=== PATIENT | male | born 1960 | race Two or more races ===

== ENCOUNTER 2025-02-27 06:05 | Inpatient (IN) | payer OTHER, MEDICARE, MEDICAID, SELFPAY ==
[2025-02-27] VITALS (68 sets, daily range): BP systolic 56–139; BP diastolic 34–107; PULSE 95–147; RESP 20–31; TEMP 37.2–38; O2SAT 76–98; BMI 79.4
[2025-02-27] MEDS: ROCURONIUM INJ 10 MG/ML VIAL 10 ML 100 MG IVP (06:14)
[2025-02-27] MEDS: ETOMIDATE INJ 2 MG/ML VIAL 10 ML 20 MG IVP ×2 (06:14→07:44)
--- NOTE | 2025-02-27 06:19 | XR_ITS ---
Examination: AP chest single view Technique one AP portable supine chest single view Exam date and time: February 27, 2025 0633 hrs. Comparison 08/07/2014 Indications: Hypoxic respiratory failure postintubation today. Findings: Wpie-eb-qdcexnrh enlargement cardiac contour Prominent vascular congestion Extensive opacity in the lungs more severe diffuse in the right lung Endotracheal tube tip 4.3 cm above nunu Orogastric tube in stomach Impression: Extensive bilateral pneumonia and/or pulmonary edema, the appearance should be clinically correlated Endotracheal tube tip 4.3 cm above nunu. Orogastric tube in the stomach satisfactory position
--- NOTE | 2025-02-27 06:21 | PD.EDAMS ---
Altered Mental Status RME/HPI General Chief Complaint: Altered Mental Status Stated Complaint: AMS Time Seen by Provider: 02/27/25 06:27 Arrival date/time: 02/27/25 06:05 RME / HPI RME / HPI narrative: Dr. Wilson?s Main ED Evaluation: 64 y/o unconscious super morbidly obese male with H/o Type II DM and Hypertension presents to ED BIBA c/o altered mental status and difficulty breathing x this morning. Per EMS, patient was found on the floor, appearing to have slid down from his recliner seat with no noted trauma. Blood sugar en route was 231 mg/dL. EMS reports GCS 14, almost 15. Patient was placed on high-flow O2 with O2 sats below 70%. EMS denies any noted oxygen paraphernalia at home. No modifying factors reported. No other concerns or complaints expressed at this time. Related Data Home Medications ?Medication ?Instructions ?Recorded ?Confirmed amlodipine 10 mg tablet 10 mg PO 1XD 02/27/25 02/27/25 gabapentin 600 mg tablet 600 mg PO 3XD 02/27/25 02/27/25 glipizide 10 mg tablet 10 mg PO 1XD 02/27/25 02/27/25 losartan 25 mg tablet 25 mg PO 1XD 02/27/25 02/27/25 metformin 1,000 mg tablet 1,000 mg PO 2XD 02/27/25 02/27/25 metoprolol succinate 100 mg 100 mg PO 2XD 02/27/25 02/27/25 tablet,extended release 24 hr tramadol 50 mg tablet 50 mg PO 3XD 02/27/25 02/27/25 Allergies Allergy/AdvReac Type Severity Reaction Status Date / Time No Known Allergies Allergy Verified 02/27/25 06:45 Review of Systems Review of Systems ROS Unobtainable: unobtainable due to mental status Past Medical History Past Medical History CARDIAC: Positive Hypertension ENDOCRINE: Positive Diabetes Mellitus Type 2 ED Exam Narrative Physical exam: GENERAL APPEARANCE: AxOx0, Super morbidly obese, Unresponsive on arrival HEENT: NC, AT. MMM. Pinpoint pupils BL, clear conjunctiva, oropharynx clear. NECK: Supple without lymphadenopathy. No stiffness or restricted ROM. HEART: BP still unobtainable LUNGS: Below 70% O2 on arrival, Patient intubated at 0616 w/ bagging O2 sats increased to 90's where patient seemed to wake up a bit, Slow, shallow respirations. No crackles or wheezes are heard ABDOMEN: Soft, nontender, nondistended with good bowel sounds heard. BACK: No midline C/T/L spine pain or deformity, No CVAT, no obvious deformity. EXTREMITIES: Without cyanosis, clubbing or edema. MUSCULOSKELETAL: No trauma noted, no chest tenderness NEUROLOGICAL: AxOx0, Unresponsive on arrival Skin: Blue, cyanotic. Course Quality Measures Current suspected stage: septic shock (LA >4 and/or hypotension) IVF 30 ml/kg given for lactic acid >4 and/or hypotension: yes Sepsis reassessment completed at (date): 02/27/25 Sepsis reassessment completed at (time): 09:30 Possible source: pulmonary Blood cultures ordered: completed in ED Antibiotic ordered: Yes Pertinent labs: 02/27/25 06:26 Lactic Acid 5.5 H* mMol/L (0.4-2.0) Procalcitonin 30.14 H ng/ml (0.0-0.49) sepsis Orders Category Date Time Status Bedside COVID-19 Antigen Test NOW Care 02/27/25 06:20 Active Bedside Influenza A&B Antigen Test NOW Care 02/27/25 06:20 Completed COVID-19 Screening Questionnaire NOW Care 02/27/25 09:23 Active Decision to Admit X1 Care 02/27/25 09:23 Completed EKG (ED ONLY) *Do not use* NOW Care 02/27/25 06:20 Completed Intubation NOW Care 02/27/25 06:[address] head/brain wo con Stat Exams 02/27/25 06:20 Completed EKG (ED Only) Stat Exams 02/27/25 06:20 Ordered XR chest 1V post procedure Stat Exams 02/27/25 06:19 Completed ABG [Arterial Blood Gas] Stat Lab 02/27/25 06:55 Completed Acetaminophen Stat Lab 02/27/25 06:26 Completed Alcohol, Blood Medical Stat Lab 02/27/25 06:26 Completed Blood Culture (Lab) Stat Lab 02/27/25 06:30 Results CBC Stat Lab 02/27/25 06:26 Completed CMP [Comprehensive Metabolic Panel] Stat Lab 02/27/25 06:26 Completed Drug Screen,Urine Stat Lab 02/27/25 06:19 Ordered Lactate (Lactic Acid) Stat Lab 02/27/25 06:26 Completed Partial Thromboplastin Time Stat Lab 02/27/25 06:26 Completed Procalcitonin Stat Lab 02/27/25 06:26 Completed Prothrombin Time with INR Stat Lab 02/27/25 06:26 Completed Salicylate Stat Lab 02/27/25 06:26 Completed Sputum Culture and Gram Stain Stat Lab 02/27/25 16:59 Results Troponin I Stat Lab 02/27/25 06:26 Completed Urinalysis Stat Lab 02/27/25 06:19 Ordered Etomidate Inj [Amidate Inj] Med 02/27/25 06:07 Discontinued 20 mg .ROUTE .STK-MED ONE Etomidate Inj [Amidate Inj] Med 02/27/25 06:12 Discontinued 20 mg IVP X1 ONE Etomidate Inj [Amidate Inj] Med 02/27/25 07:38 Discontinued 20 mg IVP X1 ONE Norepinephrine/D5W 8mg/250ml [Levophed in D5W 8mg/250ml Med 02/27/25 06:58 Active ] 8 mg in 250 ml IV 0.05 mcg/kg/min Rocuronium Inj [Zemuron Inj] Med 02/27/25 06:08 Discontinued 100 mg .ROUTE .STK-MED ONE Rocuronium Inj [Zemuron Inj] Med 02/27/25 07:39 Discontinued 100 mg IV X1 ONE Rocuronium Inj [Zemuron Inj] Med 02/27/25 06:12 Discontinued 100 mg IVP X1 ONE Sodium Chloride 0.9% 1000 ml [Ns] 1,000 ml Med 02/27/25 06:19 Discontinued IV 999 mls/hr Sodium Chloride 0.9% 1000 ml [Ns] 1,000 ml Med 02/27/25 06:21 Discontinued IV 999 mls/hr Sodium Chloride 0.9% 1000 ml [Ns] 1,000 ml Med 02/27/25 07:01 Discontinued IV 999 mls/hr Sodium Chloride 0.9% 1000 ml [Ns] 1,000 ml Med 02/27/25 07:18 Discontinued IV 999 mls/hr cefTRIAXone/D5w 1gm IV premix [Rocephin/D5w 1gm IV Med 02/27/25 07:18 Discontinued premix] 1 gm in 50 ml IV X1 Volume Ventilator Stat RT 02/27/25 06:37 Active Vital Signs Vital signs: Vital Signs Pulse Rate 99 02/27/25 06:41 Blood Pressure 56/34 L 02/27/25 06:41 Pulse Oximetry (%) 95 02/27/25 06:41 Fraction of Inspired Oxygen 100 02/27/25 06:41 Procedures -ED EKG Interpretation #1: Date of EK02/27/25 Time of EK:45 Rate: 110 Interpretation: Interpreted by me EKG Impression: Atrial fibrillation (Borderline RVR, No STEMI) Intubation Time out performed: No (Performed emergently) sedative: Etomidate Mg Given: 20 paralytic: Rocuronium Mg Given: 100 Laryngoscope: Babak (#4) ET Tube Size: 8 ET Tube Uncuffed: No Tube Secured Depth (cm): 24 Tube Secured Location: teeth Tube Placement Confirmation: visualized tube passing through cords, equal breath sounds bilaterally, no breath sounds over epigastrium and confirmation by capnometry Patient Tolerated Procedure: well and no complications Intubation Complications: none Altered Mental Status MDM Narrative MDM Narrative:: Scribe Attestation: Dulce Koch am scribing for and in the presence of Dr. Wilson. Provider Notation: Although this document has been carefully reviewed, there may still be some phonetic and other typographical errors. These errors are purely grammatical due to imperfections in the software program and should not be construed in any way to compromise the substance of the patient's medical care during this visit. Bedside glucose performed showing 220 mg/dL. Patient data External records reviewed:: [facility] previous records (No prior ED records found for review.) and EMS form Clinical information provided by:: EMS Social determinants that could affect healthcare access:: none Patient has the following chronic illnesses:: Type II DM, Hypertension How is presenting disease/condition affected by chronic disease/condition?: exacerbated by Evaluation data The following diagnostics were reviewed and interpreted by me:: lab results, radiology exam(s) and EKG tracing(s) (see interpretation under the procedures tab) Lab and/or radiology exams considered but not ordered:: None Interpretation Summary: RADIOLOGY Patient: DAWIT CRAWFORD [facility]. Record#: [id number] Birthdate: 1960 Age/Sex: 64 / M Location: [facility] Attending Dr: Ordering Physician: Josef Wilson MD Date of Service: 02/27/25 Procedure(s): XR chest 1V post procedure Accession Number(s): [id number] cc: Josef Wilson MD; Torres Mena MD; NO PRIMARY/FAMILY,PHYSICIAN~ Examination: AP chest single view Technique one AP portable supine chest single view Exam date and time: February 27, 2025 0633 hrs. Comparison 08/07/2014 Indications: Hypoxic respiratory failure postintubation today. Findings: Ayyf-ky-fbsrdkia enlargement cardiac contour Prominent vascular congestion Extensive opacity in the lungs more severe diffuse in the right lung Endotracheal tube tip 4.3 cm above nunu Orogastric tube in stomach Impression: Extensive bilateral pneumonia and/or pulmonary edema, the appearance should be clinically correlated Endotracheal tube tip 4.3 cm above nunu. Orogastric tube in the stomach satisfactory position Dictated By: Torres Mena MD Signed By: Electronically signed by Torres Mena MD in [place] 02/27/25 0725 Patient: DAWIT CRAWFORD [facility]. Record#: [id number] Birthdate: 1960 Age/Sex: 64 / M Location: [facility] Attending Dr: Ordering Physician: Josef Wilson MD Date of Service: 02/27/25 Procedure(s): CT head/brain wo con Accession Number(s): [id number] cc: Josef Wilson MD; oTrres Mena MD; NO PRIMARY/FAMILY,PHYSICIAN~ Examination: CT brain head without contrast. 2-D sagittal coronal reconstructions Date and time of exam:February 27, 2025 0728 hours INDICATIONS: Altered mental status today CTDI: vol (mGy):67.7 DLP: (mGycm):1349 Technique: Multiple CT axial sections of the brain have been obtained, 5 mm slice thickness. Contrast has not been administered. 2-D sagittal, coronal reconstructions have been obtained Low dose protocols were performed. One or more of the following dose reduction techniques were used; automated exposure control, adjustment of the mA and/or KV according to patient size, use of iterative reconstruction technique. Findings: No significant ventricular enlargement. Intra-axial or extra-axial hemorrhage density is not seen. No mass effect or midline shift Basal cisterns are not remarkable. Fourth ventricle is midline. Cranial vault intact. Impression: Negative for acute hemorrhage, mass effect or midline shift Advise clinical correlation follow-up accordingly Dictated By: Torres Mena MD Signed By: Electronically signed by Torres Mena MD in [place] 02/27/25 0918 Medications / Prescriptions Medications or Prescriptions considered but not ordered:: None Medication administrations:: Medication Administration History Acetaminophen (Acetaminophen 325 Mg Tablet) 650 mg PO Q4HR PRN PRN Reason: PAIN SCALE 1-3 (mild Stop: 03/29/25 09:23 Acetaminophen (Acetaminophen Supp 650 Mg Supp) 650 mg RI Q4HR PRN PRN Reason: PAIN SCALE 1-3 (mild Stop: 03/29/25 09:23 Al Hydrox/Mg Hydrox/Simethicone (Mg Hyd/Al Hyd/Virgilio (Maalox Reg) Susp 30 Ml Udc) 30 ml PO Q4HR PRN PRN Reason: Heartburn or Upset Stomach Stop: 03/29/25 09:23 Enoxaparin Sodium (Enoxaparin Sod Inj 40 Mg/0.4 Ml Syringe) 40 mg SC Q12HR KOURTNEY Stop: 03/13/25 20:59 Last Admin: 02/28/25 21:03 Dose: 40 mg Documented By: Admin: 02/28/25 08:11 Dose: 40 mg Documented By: Admin: 02/27/25 20:47 Dose: 40 mg Documented By: VINNY Norepinephrine/Dextrose (Levophed In D5w 8mg/250ml) 8 mg in 250 mls @ 21.577 mls/hr IV .[id number] PRN; Protocol PRN Reason: PER PROTOCOL Stop: 03/29/25 06:57 Last Titration: 02/28/25 13:49 Dose: 0 mcg/kg/min, 0 mls/hr Documented By: Titration: 02/28/25 13:00 Dose: 0.01 mcg/kg/min, 4.315 mls/hr Documented By: Titration: 02/28/25 12:29 Dose: 0.01 mcg/kg/min, 4.315 mls/hr Documented By: Titration: 02/28/25 12:00 Dose: 0.03 mcg/kg/min, 12.946 mls/hr Documented By: Titration: 02/28/25 11:00 Dose: 0.03 mcg/kg/min, 12.946 mls/hr Documented By: Admin: 02/28/25 10:58 Dose: 0.03 mcg/kg/min, 12.946 mls/hr Documented By: Titration: 02/28/25 10:05 Dose: Infused Documented By: Titration: 02/28/25 10:00 Dose: 0.03 mcg/kg/min, 12.946 mls/hr Documented By: Titration: 02/28/25 09:00 Dose: 0.03 mcg/kg/min, 12.946 mls/hr Documented By: Titration: 02/28/25 08:00 Dose: 0.03 mcg/kg/min, 12.946 mls/hr Documented By: Titration: 02/28/25 07:59 Dose: 0.03 mcg/kg/min, 12.946 mls/hr Documented By: Titration: 02/28/25 07:30 Dose: 0.05 mcg/kg/min, 21.577 mls/hr Documented By: Titration: 02/28/25 07:00 Dose: 0.07 mcg/kg/min, 30.208 mls/hr Documented By: Titration: 02/28/25 06:00 Dose: 0.09 mcg/kg/min, 38.838 mls/hr Documented By: Titration: 02/28/25 05:00 Dose: 0.09 mcg/kg/min, 38.838 mls/hr Documented By: Titration: 02/28/25 04:00 Dose: 0.09 mcg/kg/min, 38.838 mls/hr Documented By: Titration: 02/28/25 03:00 Dose: 0.09 mcg/kg/min, 38.838 mls/hr Documented By: Titration: 02/28/25 02:00 Dose: 0.09 mcg/kg/min, 38.838 mls/hr Documented By: Admin: 02/28/25 01:15 Dose: 0.09 mcg/kg/min, 38.838 mls/hr Documented By: Titration: 02/28/25 01:15 Dose: Infused Documented By: Titration: 02/28/25 01:00 Dose: 0.11 mcg/kg/min, 47.469 mls/hr Documented By: Titration: 02/28/25 00:00 Dose: 0.11 mcg/kg/min, 47.469 mls/hr Documented By: Titration: 02/27/25 23:00 Dose: 0.11 mcg/kg/min, 47.469 mls/hr Documented By: Titration: 02/27/25 22:00 Dose: 0.11 mcg/kg/min, 47.469 mls/hr Documented By: Titration: 02/27/25 21:00 Dose: 0.11 mcg/kg/min, 47.469 mls/hr Documented By: Titration: 02/27/25 20:00 Dose: 0.11 mcg/kg/min, 47.469 mls/hr Documented By: Admin: 02/27/25 19:59 Dose: 0.11 mcg/kg/min, 47.469 mls/hr Documented By: Titration: 02/27/25 19:59 Dose: Infused Documented By: Titration: 02/27/25 19:00 Dose: 0.11 mcg/kg/min, 47.469 mls/hr Documented By: Titration: 02/27/25 18:40 Dose: 0.11 mcg/kg/min, 47.469 mls/hr Documented By: Titration: 02/27/25 18:15 Dose: 0.09 mcg/kg/min, 38.838 mls/hr Documented By: Titration: 02/27/25 18:00 Dose: 0.07 mcg/kg/min, 30.208 mls/hr Documented By: Titration: 02/27/25 17:50 Dose: 0.07 mcg/kg/min, 30.208 mls/hr Documented By: Titration: 02/27/25 17:00 Dose: 0.05 mcg/kg/min, 21.577 mls/hr Documented By: Titration: 02/27/25 16:23 Dose: 0.05 mcg/kg/min, 21.577 mls/hr Documented By: Titration: 02/27/25 16:05 Dose: 0.07 mcg/kg/min, 30.208 mls/hr Documented By: Titration: 02/27/25 16:00 Dose: 0.05 mcg/kg/min, 21.577 mls/hr Documented By: Titration: 02/27/25 15:22 Dose: 0.05 mcg/kg/min, 21.577 mls/hr Documented By: Titration: 02/27/25 15:01 Dose: 0.07 mcg/kg/min, 30.208 mls/hr Documented By: Titration: 02/27/25 15:00 Dose: 0.09 mcg/kg/min, 38.838 mls/hr Documented By: Titration: 02/27/25 14:00 Dose: 0.09 mcg/kg/min, 38.838 mls/hr Documented By: Admin: 02/27/25 12:30 Dose: 0.09 mcg/kg/min, 38.838 mls/hr Documented By: Titration: 02/27/25 12:30 Dose: Infused Documented By: Titration: 02/27/25 10:40 Dose: 0.09 mcg/kg/min, 38.838 mls/hr Documented By: Titration: 02/27/25 10:30 Dose: 0.09 mcg/kg/min, 38.838 mls/hr Documented By: Titration: 02/27/25 10:00 Dose: 0.09 mcg/kg/min, 38.838 mls/hr Documented By: Titration: 02/27/25 10:00 Dose: 0.09 mcg/kg/min, 38.838 mls/hr Documented By: Titration: 02/27/25 07:30 Dose: 0.11 mcg/kg/min, 47.469 mls/hr Documented By: Titration: 02/27/25 07:25 Dose: 0.11 mcg/kg/min, 47.469 mls/hr Documented By: Titration: 02/27/25 07:20 Dose: 0.09 mcg/kg/min, 38.838 mls/hr Documented By: Titration: 02/27/25 07:15 Dose: 0.07 mcg/kg/min, 30.208 mls/hr Documented By: Admin: 02/27/25 07:10 Dose: 0.05 mcg/kg/min, 21.577 mls/hr Documented By: EF Piperacillin Sod/Tazobactam (Sod 4.5 gm/ Sodium Chloride) 100 mls @ 25 mls/hr IV Q8HR KOURTNEY; Protocol Stop: 03/07/25 13:59 Last Admin: 03/01/25 05:26 Dose: 25 mls/hr Documented By: Infusion: 03/01/25 01:03 Dose: Infused Documented By: Admin: 02/28/25 21:03 Dose: 25 mls/hr Documented By: Infusion: 02/28/25 18:41 Dose: Infused Documented By: Admin: 02/28/25 13:57 Dose: 25 mls/hr Documented By: JOSE Magnesium Hydroxide (Milk Of Magnesia Susp 30 Ml Udc) 30 ml PO QDAY PRN PRN Reason: CONSTIPATION Stop: 03/29/25 09:23 Midodrine (Midodrine 5 Mg Tablet) 10 mg PO Q6HR KOURTNEY Stop: 03/30/25 11:59 Last Admin: 03/01/25 05:25 Dose: 10 mg Documented By: Admin: 03/01/25 00:17 Dose: 10 mg Documented By: Admin: 02/28/25 18:02 Dose: 10 mg Documented By: Admin: 02/28/25 13:02 Dose: 10 mg Documented By: JOSE Nitroglycerin (Nitroglycerin 0.4 Mg Subl Btl #25) 0.4 mg SL Q5MIN PRN PRN Reason: CHEST PAIN Pantoprazole Sodium (Pantoprazole Inj 40 Mg Vial) 40 mg IV QDAY [facility] Stop: 03/29/25 11:14 Last Admin: 02/28/25 08:12 Dose: 40 mg Documented By: Admin: 02/27/25 12:11 Dose: 40 mg Documented By: MICHELL Pharmacy Consult (Vancomycin Pharmacy To Dose 1 Each Each) 1 each IV QDAY PRN PRN Reason: CONSULT Stop: 03/29/25 14:29 Discontinued Medications Bumetanide (Bumetanide Inj 0.25 Mg/Ml Vial 4 Ml) 1 mg IV X1 ONE Stop: 02/27/25 21:42 Last Admin: 02/27/25 22:11 Dose: 1 mg Documented By: VINNY Enoxaparin Sodium (Enoxaparin Sod Inj 40 Mg/0.4 Ml Syringe) 40 mg SC QDAY [facility] Stop: 03/14/25 08:59 Etomidate (Etomidate Inj 2 Mg/Ml Vial 10 Ml) Confirm Administered Dose 20 mg .ROUTE .STK-MED ONE Stop: 02/27/25 06:08 Last Admin: 02/27/25 06:31 Dose: Not Given Documented By: LORI Non-Admin Reason: Override Medication Etomidate (Etomidate Inj 2 Mg/Ml Vial 10 Ml) 20 mg IVP X1 ONE Stop: 02/27/25 06:13 Last Admin: 02/27/25 06:14 Dose: 20 mg Documented By: LORI Etomidate (Etomidate Inj 2 Mg/Ml Vial 10 Ml) 20 mg IVP X1 ONE Stop: 02/27/25 07:39 Last Admin: 02/27/25 07:44 Dose: 20 mg Documented By: MICHELL Famotidine (Famotidine Inj 10 Mg/Ml Vial 2 Ml) 20 mg IVP QDAY [facility] Stop: 03/30/25 08:59 Furosemide (Furosemide Inj 10 Mg/Ml 4ml Vial) 60 mg IVP X1 ONE Stop: 02/27/25 16:13 Last Admin: 02/27/25 17:03 Dose: 60 mg Documented By: JOSE Sodium Chloride (Ns) 1,000 mls @ 999 mls/hr IV .Q1H1M ONE Stop: 02/27/25 07:19 Last Infusion: 02/27/25 09:25 Dose: Infused Documented By: Admin: 02/27/25 06:30 Dose: 999 mls/hr Documented By: EF Sodium Chloride (Ns) 1,000 mls @ 999 mls/hr IV .Q1H1M ONE Stop: 02/27/25 07:21 Last Infusion: 02/27/25 07:23 Dose: Infused Documented By: Admin: 02/27/25 06:31 Dose: 999 mls/hr Documented By: EF Sodium Chloride (Ns) 1,000 mls @ 999 mls/hr IV .Q1H1M ONE Stop: 02/27/25 08:01 Last Infusion: 02/27/25 09:25 Dose: Infused Documented By: Admin: 02/27/25 07:11 Dose: 999 mls/hr Documented By: EF Sodium Chloride (Ns) 1,000 mls @ 999 mls/hr IV .Q1H1M ONE Stop: 02/27/25 08:18 Last Infusion: 02/27/25 09:25 Dose: Infused Documented By: Admin: 02/27/25 08:56 Dose: 999 mls/hr Documented By: VG Ceftriaxone Sodium/Dextrose (Rocephin/D5w 1gm Iv Premix) 1 gm in 50 mls @ 100 mls/hr IV X1 ONE Stop: 02/27/25 07:47 Last Infusion: 02/27/25 09:25 Dose: Infused Documented By: Admin: 02/27/25 08:51 Dose: 100 mls/hr Documented By: VG Acetaminophen (Ofirmev Inj) 1,000 mg in 100 mls @ 250 mls/hr IV X1 ONE Stop: 02/27/25 10:42 Last Infusion: 02/27/25 11:12 Dose: Infused Documented By: Admin: 02/27/25 10:24 Dose: 250 mls/hr Documented By: VG Piperacillin Sod/Tazobactam (Sod 4.5 gm/ Sodium Chloride) 100 mls @ 200 mls/hr IV Q6HR KOURTNEY Stop: 03/06/25 14:22 Last Admin: 02/28/25 05:34 Dose: 200 mls/hr Documented By: Infusion: 02/28/25 00:12 Dose: Infused Documented By: Admin: 02/27/25 23:42 Dose: 200 mls/hr Documented By: Infusion: 02/27/25 15:55 Dose: Infused Documented By: Admin: 02/27/25 15:25 Dose: 200 mls/hr Documented By: JOSE Vancomycin HCl 2,000 mg/ (Sodium Chloride) 500 mls @ 150 mls/hr IV X1 ONE Stop: 02/27/25 18:19 Last Admin: 02/27/25 15:22 Dose: 150 mls/hr Documented By: JOSE Amiodarone HCl/Dextrose (Nexterone Ivpb) 150 mg in 100 mls @ 600 mls/hr IV .Q10M ONE Stop: 02/27/25 19:36 Last Infusion: 02/27/25 19:47 Dose: Infused Documented By: Admin: 02/27/25 19:31 Dose: 600 mls/hr Documented By: VINNY Amiodarone HCl/Dextrose (Nexterone Ivpb) 360 mg in 200 mls @ 33.333 mls/hr IV .Q6H ONE Stop: 02/28/25 01:36 Last Admin: 02/27/25 19:46 Dose: 33.333 mls/hr Documented By: VINNY Amiodarone HCl/Dextrose (Nexterone Ivpb) 360 mg in 200 mls @ 16.667 mls/hr IV .Q12H KOURTNEY Stop: 03/01/25 01:36 Last Admin: 02/28/25 13:56 Dose: 16.667 mls/hr Documented By: Infusion: 02/28/25 13:49 Dose: Infused Documented By: Admin: 02/28/25 01:49 Dose: 16.667 mls/hr Documented By: VINNY Vancomycin HCl (Vancomycin/Water 1250 Mg Ivpb) 250 mls @ 120 mls/hr IV X1 ONE Stop: 02/28/25 12:04 Last Admin: 02/28/25 10:02 Dose: 120 mls/hr Documented By: JOSE Bumetanide 20 mg/ IV (Miscellaneous Supplies) 80 mls @ 4 mls/hr IV .Q20H KOURTNEY Stop: 03/01/25 07:03 Last Admin: 02/28/25 12:11 Dose: 1 mg/hr, 4 mls/hr Documented By: JOSE Rocuronium Comfort (Rocuronium Inj 10 Mg/Ml Vial 10 Ml) Confirm Administered Dose 100 mg .ROUTE .STK-MED ONE Stop: 02/27/25 06:09 Last Admin: 02/27/25 06:31 Dose: Not Given Documented By: EF Non-Admin Reason: Override Medication Rocuronium Comfort (Rocuronium Inj 10 Mg/Ml Vial 10 Ml) 100 mg IVP X1 ONE Stop: 02/27/25 06:13 Last Admin: 02/27/25 06:14 Dose: 100 mg Documented By: EF Co-signed By: GG Rocuronium Comfort (Rocuronium Inj 10 Mg/Ml Vial 10 Ml) 100 mg IV X1 ONE Stop: 02/27/25 07:40 Last Admin: 02/27/25 07:44 Dose: 100 mg Documented By: VG Co-signed By: GM Sodium Chloride (Sodium Chloride Rt 10% 15 Ml Nebu) 5 ml INH X1 ONE Stop: 02/27/25 14:39 See above if any Consultations Consultation(s) initiated? (list below): Yes Consultation #1 (Physician, Specialty, Details): Dr. Maxwell, Admissions Rn, made aware of the patient?s HPI, PMHx, lab and/or radiology results. Dr. Maxwell requesting official head CT report, pending admittance. Time: 09:10 Consultation #2 (Physician, Specialty, Details): Dr. Maxwell accepts the patient for admission to ICU. Time: 09:20 Diagnosis Differential diagnosis altered mental status: altered mental status, hypoglycemia and sepsis Most likely diagnosis given after review of the tests above:: Respiratory failure Morbid obesity KENIA Dehydration Admission Indicated Admission indicated?: indicated Admission Request Was there a request for admission?: Yes Admission Attestation Admission request attestation: Discussed case with [] from Hospitalist service regarding admission. Discussed patients ED course, exam findings, labs, and radiology results. The Hospitalist [agrees,declines] to accept the patient for admission. Disposition Plan Disposition Plan: Admit Critical Care Time Critical Care Time Critical Care Time: Yes Total Critical Care Time (min.): 45 Attestation: The high probability of sudden, clinically significant deterioration in the patient?s condition required the highest level of my preparedness to intervene urgently. The services I provided to this patient were to treat and/or prevent clinically significant deterioration. Services included the following: chart data review, reviewing nursing notes and/or old charts, documentation time, security consultant collaboration regarding findings and treatment options, medication orders and management, direct patient care, vital sign assessments and ordering, interpreting and reviewing diagnostic studies and lab tests. Aggregate critical care time includes only time during which I was engaged in work directly related to the patient?s care, as described above, whether at bedside or elsewhere in the Emergency Department. It did not include time spent performing other reported procedures or the services of residents, students, nurses or physician assistants. Discharge Plan Plan Patient Disposition: Admit Acute Care w/in Hospital Problem List Clinical Impression: Respiratory failure, KENIA (acute kidney injury), Dehydration, Morbid obesity
[2025-02-27] MEDS: SODIUM CHLORIDE 0.9% 1000 ML 1,000 ML 999 ML IV ×4 (06:30→08:56)
[2025-02-27 06:43] LABS: Lactate (Lactic Acid) 5.5 mMol/L (0.4-2.0)
[2025-02-27 06:44] LABS: Basophils # (Auto) 0.1 Thou/mm3 (0.0-0.2); Basophils % (Auto) 0 % (0-2.5); Eosinophils # (Auto) 0.1 Thou/mm3 (0.0-0.5); Eosinophils % (Auto) 1 % (0-10); Hematocrit 49.7 % (41.0-53.0); Hemoglobin 15.3 g/dL (13.5-16.0); Immature Granulocytes % (Auto) 1 % (0-0); Immature Granulocytes Auto 0.08 Thou/mm3 (0.00-0.00); Lymphocytes # (Auto) 1.5 Thou/mm3 (1.0-4.8); Lymphocytes % (Auto) 9 % (10-50); Mean Corpuscular HGB Conc 30.8 g/dl (31.0-37.0); Mean Corpuscular Hemoglobin 28.8 pg (25.0-35.0); Mean Corpuscular Volume 94 fL (80-100); Monocytes # (Auto) 1.3 Thou/mm3 (0.0-0.8); Monocytes % (Auto) 8 % (0-12); Neutrophils # (Auto) 13.5 Thou/mm3 (1.8-7.7); Neutrophils % (Auto) 82 % (37-80); Nucleated Red Blood Cell # 0.02 Thou/mm3 (0.00-0.00); Nucleated Red Blood Cell % 0 /100 WBC (0); Platelet Count 369 Thou/mm3 (140-440); RDW Standard Deviation 47.8 fL (35.1-43.9); Red Blood Count 5.31 Miln/mm3 (4.50-5.90); White Blood Count 16.5 Thou/mm3 (3.8-10.6)
--- NOTE | 2025-02-27 06:49 | PC.NURSE ---
bp 56/42 md aware no new orders
[2025-02-27 06:59] LABS: Base Excess -2 (-3-3); HCO3 26 mEq/L (20-26); Inspired Oxygen, FIO2 100 %; O2 Saturation 98 % (91-98); PCO2 57 mmHg (32.0-48.0); PO2 101 mmHg (83-108); pH, Arterial 7.27 (7.35-7.45)
[2025-02-27 07:00] LABS: Allen Test Not Performed; Puncture Site Left Femoral
--- NOTE | 2025-02-27 07:00 | PC.RT ---
PT CAME IN STAT, BIPAP BROUGHT TO ROOM 3. UPON ARRIVAL, PT IS PALE IN COLOR AND AGONAL BREATHING NOTED. INTUBATION EQUIPMENT READY FOR DR KAUR. SUCCESS INTUBATION 8.0 AND TUBE MOVED TO 26 AT GUM AFTER XRAY.
[2025-02-27 07:02] LABS: INR 1.4 (0.9-1.3); Partial Thromboplastin Time 29.2 Seconds (22.0-36.0); Prothrombin Time 14.8 Seconds (9.0-12.2)
[2025-02-27] MEDS: Norepinephrine/D5W 8mg/250ml 8 MG/250 ML BAG 21.577 MG IV (07:10)
[2025-02-27 07:30] LABS: Acetaminophen 3.1 mcg/mL (10.0-20.0); Alanine Aminotransferase 35 U/L (10-49); Albumin, Serum 4.2 gm/dL (3.4-4.8); Albumin/Globulin Ratio 1.7 (1.2-2.2); Alcohol, Blood Medical < 3.0 mg/dL (0-10.0); Alkaline Phosphatase 81 U/L (46-116); Anion Gap 12 (7-16); Aspartate Amino Transferase 129 U/L (0-34); BUN/Creatinine Ratio 10 Ratio (12-20); Bilirubin,Total 1.3 mg/dL (0.3-1.2); Blood Urea Nitrogen 22 mg/dL (9-23); Calcium 8.7 mg/dL (8.3-10.6); Calcium (Corrected) 8.7 mg/dL (8.5-10.1); Chloride 102 mMol/L (98-107); Creatinine (Component) 2.1 mg/dL (0.6-1.3); Estimated Creatinine Clearance 65.3 mL/min (>60); Globulin 2.5 gm/dL (2.3-3.5); Glucose 230 mg/dL (74-106); Osmolality,Calculated 285 (275-295); Potassium 5.5 mMol/L (3.4-5.1); Procalcitonin 30.14 ng/ml (0.0-0.49); Salicylate < 3.0 mg/dL; Sodium 138 mMol/L (136-145); Total Protein 6.7 gm/dL (5.7-8.2); Troponin I 0.037 ng/mL (0.0-0.045); eGFR 34 See Note
[2025-02-27] MEDS: ROCURONIUM INJ 10 MG/ML VIAL 10 ML 100 MG IV (07:44)
[2025-02-27] MEDS: cefTRIAXone/D5w 1gm IV premix 1 GM/50 ML BAG IV (08:51)
--- NOTE | 2025-02-27 09:27 | ECHO_ITS ---
Transthoracic Echo Report Ht (in): 67 Wt (lb): 507 Exam Location: Echo Lab Status: Emergency Helicopter Engineer: Filippo Mcgee Indications: Procedure Performed: BP: 97 / 74 HR: 137 Technical Quality: Very technically difficult study MEASUREMENTS (Male / Female) Normal Values 2D ECHO LVOT Diameter 2.9 cm Aortic Root Diameter 3.4 cm DOPPLER AV Peak Velocity 178.0 cm/s AV Peak Gradient 12.7 mmHg AV Mean Gradient 7.0 mmHg AV Velocity Time Integral 27.8 cm LVOT Peak Velocity 120.0 cm/s LVOT Peak Gradient 5.8 mmHg LVOT Velocity Time Integral 17.3 cm LVOT Cardiac Index 4521.0 cm?/min?m? AV Area Cont Eq vti 4.1 cm? AV Area Cont Eq pk 4.5 cm? MV Area PHT 3.4 cm? Mitral E Point Velocity 39.8 cm/s Mitral A Point Velocity 70.3 cm/s Mitral E to A Ratio 0.6 LV E' Lateral Velocity 10.2 cm/s Mitral E to LV E' Lateral Ratio 3.9 LV E' Septal Velocity 6.5 cm/s Mitral E to LV E' Septal Ratio 6.1 TR Peak Velocity 316.0 cm/s TR Peak Gradient 39.9 mmHg FINDINGS Left Ventricle Normal left ventricular size and wall thickness. Normal left ventricular diastolic filling pattern for age. The ejection fraction is visually estimated at 25-30 %. The left ventricle is not well visualized. Right Ventricle The right ventricular systolic function is moderately decreased. The estimated right ventricular systolic pressure 55 mmHg. RAP 15. Left Atrium The left atrium is normal by two-dimensional, color flow and Doppler imaging with no structural abnormalities, no thrombus formation present. Right Atrium The right atrium is normal by two-dimensional imaging, color flow and Doppler imaging with no structural abnormalities, no thrombus formation present. Atrial Septum The interatrial septum appears normal with no evidence of a shunt. Aorta The aorta is normal by two-dimensional, color flow and Doppler interrogation. Mitral Valve The mitral valve is not well visualized. Aortic Valve The aortic valve is not well visualized. Tricuspid Valve There is mild tricuspid valve regurgitation. Pulmonic Valve The pulmonic valve is not well visualized. There is no significant pulmonic valve regurgitation. Vessels Dilated inferior vena cava. Pericardium The pericardium is normal by two-dimensional imaging. There is no significant pericardial effusion. CONCLUSIONS Indication: Shock and evaluate LV function. Overall poor quality images secondary to patient's body habitus and also technically limited study. None of the cardiac structures visualized well. Consider LO if clinically indicated. Limited images show possible moderate to severely reduced LV as well as RV function. IVC appears to be dilated and also estimated RVSP also appears to be at least moderately elevated at 55 mmHg. Kobe Barahona (Electronically Signed) Final Date: 02 March 2025 06:10
[2025-02-27 09:33] LABS: Reflex Lactate? Y
[2025-02-27] MEDS: ACETAMINOPHEN IVPB 1,000 MG/100 ML VIAL 250 MG IV (10:24)
[2025-02-27 10:33] LABS: Lactic Acid, 3 HR 3.6 mMol/L (0.4-2.0)
--- NOTE | 2025-02-27 10:36 | PC.NURSE ---
TITRATION DONE AT 1000 BY SHERICE CASTELAN WAS SUPPOSED TO BE FOR 1030. UNABLE TO UNCHART IT AT THIS TIME. THIS RN CHARTED ON CORRECT TIME WELL FOR 103.
[2025-02-27 11:55] LABS: B-Type Natriuretic Peptide 368 pg/mL (0-100)
[2025-02-27] MEDS: PANTOPRAZOLE INJ 40 MG VIAL IV (12:11)
[2025-02-27] MEDS: Norepinephrine/D5W 8mg/250ml 8 MG/250 ML BAG 38.838 MG IV (12:30)
--- NOTE | 2025-02-27 14:06 | PD.RESHP ---
Documentation for date of: 02/27/25 [facility] History of Present Illness Chief complaint: AMS and SOB History of present illness: 64-year-old male with past medical history of DM2, hypertension, and A-fib was admitted to the ICU on 02/27/2025 after coming to the ED with complaints of altered mental status and shortness of breath. Patient was intubated in the ED therefore most of the history was taken from chart review and from the parents who are at bedside. Patient's parents stated that yesterday morning patient could not get up from his chair and then later that evening/night he started getting confused and was not making sense when he was seen. This morning EMS found the patient on the floor and he was saturating in the 70s even on high flow nasal cannula. Given his hypoxia patient was intubated in the ED. As per parents were at bedside they stated that prior to this patient was able to walk around, but that since yesterday morning he was unable to walk. On assessment patient was intubated, but was still able to answer yes or no questions. He was also able to follow commands. Patient spiked a fever while in the ED and he became hypotensive unresponsive to IV fluids therefore he was placed on vasopressors. ED course: Initially patient was hypotensive and febrile. Initial labs were relevant for leukocytosis (16.5), ABG (pH 7.27, PCO2 of 57, and pO2 of 101), hyperkalemia (5.5), KENIA (creatinine 2.1), lactic acidosis (5.5 down trended to 3.6), hyperbilirubinemia (1.3, transaminitis (AST 129), elevated BNP (368), elevated procalcitonin (3.14). Initial imaging included chest x-ray which showed some bilateral opacities which seems like pulmonary edema versus pneumonia and head CT was negative for any acute hemorrhage, mass effect, or midline shift. PMH: As above Social Hx: Denies any smoking, drugs, admits social drinking Medications: Amlodipine, losartan, glipizide, metformin, metoprolol succinate, gabapentin, and tramadol Review of Systems Review of Systems ROS Unobtainable: due to endotracheal tube Past Medical History Past Medical History CARDIAC: Positive Hypertension ENDOCRINE: Positive Diabetes Mellitus Type 2 Past Medical History Comments PMH COMMENT: PMH: DM2, hypertension, and A-fib Social Hx: Denies any smoking, drugs, admits social drinking Medications: Amlodipine, losartan, glipizide, metformin, metoprolol succinate, gabapentin, and tramadol Exam Vital Signs Temp Pulse Resp BP Pulse Ox O2 Del Method O2 Flow Rate 100.4 F 136 H 28 H 107/75 93 L Mechanical Ventilation 70 02/27/25 13:00 02/27/25 13:00 02/27/25 13:00 02/27/25 13:00 02/27/25 13:00 02/27/25 13:00 02/27/25 13:00 FiO2 90 02/27/25 13:00 Narrative Exam General: Mechanically intubated, morbidly obese, able to follow commands Eyes: PERRL, EOMI. Anicteric, vision grossly intact. Ears: No ear pain, no ear discharge, Hearing grossly intact. Nose: No nasal discharge. Mouth/Throat: Moist mucous membranes, no redness, no lesions. Neck: Short neck non-tender, no cervical lymphadenopathy. Lungs: Clear BANG in upper lobes, but decreased in lower lobes likely due to body habitus Cardio: Distant heart sounds likely due to body habitus, normal S1/S2, regular rhythm, no murmurs, no JVD Abdomen: Swollen lower abdomen, no palpable masses, peristalsis present, no guarding or rebound. Extremities: Symmetrical, no significant deformities, 2+ peripheral edema , non-tender, peripheral pulses presents. Skin: No rashes, no lesions, warm to touch. Neuro: Able to follow commands, pupils reactive to light, able to move all extremities Results: Labs 02/28/25 04:45 02/28/25 04:45 Labs: Short CBC 02/27/25 Range/Units 06:26 WBC 16.5 H (3.8-10.6) Thou/mm3 Hgb 15.3 (13.5-16.0) g/dL Hct 49.7 (41.0-53.0) % Plt Count 369 (140-440) Thou/mm3 BMP 02/27/25 06:26 Sodium 138 Potassium 5.5 H Chloride 102 Carbon Dioxide 24.0 BUN 22 Creatinine 2.1 H Glucose 230 H Calcium 8.7 Cardiac Enzymes 02/27/25 Range/Units 06:26 Troponin I 0.037 (0.0-0.045) ng/mL Liver Function 02/27/25 Range/Units 06:26 Total Bilirubin 1.3 H (0.3-1.2) mg/dL AST 129 H (0-34) U/L ALT 35 (10-49) U/L Alkaline Phosphatase 81 (46-116) U/L Albumin 4.2 (3.4-4.8) gm/dL ABG Interpretation ABG results: 02/27/25 06:55 ABG pH 7.27 L ABG pCO2 57 H ABG pO2 101 ABG HCO3 26 ABG O2 Saturation 98 ABG Base Excess -2 Quality Measures Quality Measures sepsis Current suspected stage: septic shock (LA >4 and/or hypotension) Sepsis reassessment completed at (date): 02/27/25 Sepsis reassessment completed at (time): 17:36 Possible source: pulmonary Blood cultures ordered: completed in ED Antibiotic ordered: Yes Advance care planning discussed with:: patient and other (parents) Medications Home Medications and Allergies Home Medications ?Medication ?Instructions ?Recorded ?Confirmed ?Type amlodipine 10 mg tablet 10 mg PO 1XD 02/27/25 02/27/25 History gabapentin 600 mg tablet 600 mg PO 3XD 02/27/25 02/27/25 History glipizide 10 mg tablet 10 mg PO 1XD 02/27/25 02/27/25 History losartan 25 mg tablet 25 mg PO 1XD 02/27/25 02/27/25 History metformin 1,000 mg tablet 1,000 mg PO 2XD 02/27/25 02/27/25 History metoprolol succinate 100 mg 100 mg PO 2XD 02/27/25 02/27/25 History tablet,extended release 24 hr tramadol 50 mg tablet 50 mg PO 3XD 02/27/25 02/27/25 History Allergies Allergy/AdvReac Type Severity Reaction Status Date / Time No Known Allergies Allergy Verified 02/27/25 06:45 Visit Medications Acetaminophen (Acetaminophen 325 Mg Tablet) 650 mg PO Q4HR PRN PRN Reason: PAIN SCALE 1-3 (mild Stop: 03/29/25 09:23 Acetaminophen (Acetaminophen Supp 650 Mg Supp) 650 mg SC Q4HR PRN PRN Reason: PAIN SCALE 1-3 (mild Stop: 03/29/25 09:23 Al Hydrox/Mg Hydrox/Simethicone (Mg Hyd/Al Hyd/Virgilio (Maalox Reg) Susp 30 Ml Udc) 30 ml PO Q4HR PRN PRN Reason: Heartburn or Upset Stomach Stop: 03/29/25 09:23 Enoxaparin Sodium (Enoxaparin Sod Inj 40 Mg/0.4 Ml Syringe) [address] [facility] Stop: 03/13/25 20:59 Famotidine (Famotidine Inj 10 Mg/Ml Vial 2 Ml) [address] [facility] Stop: 03/30/25 08:59 Norepinephrine/Dextrose (Levophed In D5w 8mg/250ml) 8 mg in 250 mls @ 21.577 mls/hr IV .[id number] PRN; Protocol PRN Reason: PER PROTOCOL Stop: 03/29/25 06:57 Last Admin: 02/27/25 12:30 Dose: 0.09 mcg/kg/min, 38.838 mls/hr Magnesium Hydroxide (Milk Of Magnesia Susp 30 Ml Udc) 30 ml PO QDAY PRN PRN Reason: CONSTIPATION Stop: 03/29/25 09:23 Nitroglycerin (Nitroglycerin 0.4 Mg Subl Btl #25) 0.4 mg SL Q5MIN PRN PRN Reason: CHEST PAIN Pantoprazole Sodium (Pantoprazole Inj 40 Mg Vial) [address] [facility] Stop: 03/29/25 11:14 Last Admin: 02/27/25 12:11 Dose: 40 mg Discontinued Medications Enoxaparin Sodium (Enoxaparin Sod Inj 40 Mg/0.4 Ml Syringe) [address] [facility] Stop: 03/14/25 08:59 Etomidate (Etomidate Inj 2 Mg/Ml Vial 10 Ml) 20 mg IVP X1 ONE Stop: 02/27/25 06:13 Last Admin: 02/27/25 06:14 Dose: 20 mg Etomidate (Etomidate Inj 2 Mg/Ml Vial 10 Ml) 20 mg IVP X1 ONE Stop: 02/27/25 07:39 Last Admin: 02/27/25 07:44 Dose: 20 mg Sodium Chloride (Ns) 1,000 mls @ 999 mls/hr IV .Q1H1M ONE Stop: 02/27/25 07:19 Last Infusion: 02/27/25 09:25 Dose: Infused Sodium Chloride (Ns) 1,000 mls @ 999 mls/hr IV .Q1H1M ONE Stop: 02/27/25 07:21 Last Infusion: 02/27/25 07:23 Dose: Infused Sodium Chloride (Ns) 1,000 mls @ 999 mls/hr IV .Q1H1M ONE Stop: 02/27/25 08:01 Last Infusion: 02/27/25 09:25 Dose: Infused Sodium Chloride (Ns) 1,000 mls @ 999 mls/hr IV .Q1H1M ONE Stop: 02/27/25 08:18 Last Infusion: 02/27/25 09:25 Dose: Infused Ceftriaxone Sodium/Dextrose (Rocephin/D5w 1gm Iv Premix) 1 gm in 50 mls @ 100 mls/hr IV X1 ONE Stop: 02/27/25 07:47 Last Infusion: 02/27/25 09:25 Dose: Infused Acetaminophen (Ofirmev Inj) 1,000 mg in 100 mls @ 250 mls/hr IV X1 ONE Stop: 02/27/25 10:42 Last Infusion: 02/27/25 11:12 Dose: Infused Rocuronium Lavinia (Rocuronium Inj 10 Mg/Ml Vial 10 Ml) 100 mg IVP X1 ONE Stop: 02/27/25 06:13 Last Admin: 02/27/25 06:14 Dose: 100 mg Rocuronium Lavinia (Rocuronium Inj 10 Mg/Ml Vial 10 Ml) 100 mg IV X1 ONE Stop: 02/27/25 07:40 Last Admin: 02/27/25 07:44 Dose: 100 mg Assessment & Plan Plan 64-year-old male with past medical history of DM2, hypertension, and A-fib was admitted to the ICU on 02/27/2025 for shock and acute hypoxic respiratory failure. CLAIM AGENT: #Acute encephalopathy Patient was confused as per parents admit signs Patient was able to follow commands and to answer yes and no questions today Head CT negative Could be a component of infectious versus hypoxic CVS: #Shock Unknown etiology at this time Could consider distributive etiology given fevers elevated procalcitonin versus cardiogenic in the setting of history of A-fib which could cause heart failure along with pulmonary edema on chest x-ray and physical exam significant for bilateral lower extremity swelling along with lower abdomen swelling Cheetah did not show patient was fluid responsive at this time Patient's physical exam did show significant swelling from lower abdomen and bilateral lower extremities Patient's chest x-ray does look like patient has pulmonary edema Patient also got 4 L of IV fluids in the ER Echo ordered #CHF? Patient's chest x-ray showed some pulmonary edema Patient's physical exam did not show significant swelling involving his lower abdomen and lower extremities bilaterally Patient's BNP did come slightly elevated at 368 Given patient's history of A-fib could be an inciting factor for developing heart failure Echo ordered Lasix 60 x 1 Daily weights #Hx of A-fib Patient does have a history of A-fib On metoprolol succinate 100 mg daily at home Not on any anticoagulation [id number] score of 3 points indicating 3.2% risk of stroke per year Has bled score of 0 Not rate control at this time Echo ordered Respiratory: #Acute hypoxic respiratory failure #Community-acquired pneumonia Patient was intubated on 02/27/2025 after he was found to be hypoxic Chest x-ray showed some possible pneumonia Patient's hypoxia could also be due to obesity hypoventilation syndrome versus pulmonary edema versus pneumonia Will get daily ABGs and chest x-rays Started Zosyn and vancomycin Cocci ordered Renal: #KENIA #Lactic acidosis Patient came in with creatinine of 2.1 and lactic acid of 5.5 Patient's baseline creatinine is around show 0.9 from 10/2022 Lactic acid did go down to 3.6 Likely in the setting of shock Patient received 4 L of IV fluids Will trend lactic acid Avoid nephrotoxic agent Renally dose medication #Hyperkalemia Patient potassium 5.5 on morning labs Repeated CMP GI: #Transaminitis #Hyperbilirubinemia Patient came in with bilirubin of 1.3 and AST 129 Will continue to monitor on daily CMP's Endo: #Morbid obesity Patient has a BMI of 79.5 Heme: #Leukocytosis Patient came in with WBC of 16.5 Could be related to possible pneumonia Will continue to monitor ID: #Community-acquired pneumonia Blood cultures ordered Cocci ordered Started on vancomycin and Zosyn Hospital Maintenance: Diet: N.p.o. DVT ppx: Lovenox 40 mg to 12 GI ppx: protonix IV lines: PIV Chacon: Pure wick Code status: Full code Dispo: ICU for shock and acute hypoxic respiratory failure. Case disclosed with Attending Dr. Hans Cornejo PGY1 Attending Provider Attestation/Addendum Patient seen and examined with resident. Agree with above. In brief this is 64-year-old gentleman with super morbid obesity who was brought into the ER for altered mentation and hypoxic respiratory failure. Patient was intubated on arrival to the ER and chest x-ray showed bilateral infiltrates. There is a question of pulmonary edema versus pneumonia. He is awake and able to follow commands not requiring any sedation. On physical exam lung and heart sounds are distant, abdomen is obese with edema of the pannus, edema of both lower extremities, pulses palpable. He was started on broad-spectrum antibiotics for the possibility of pneumonia. Cheeta was placed and patient noted to have a very elevated SV 115-120. He was given a dose of lasix with no UOP followed by a dose of bumex. given his body habitus inserting chacon was not possible. Take patient with significant FiO2 requirements and his PEEP was increased. Recruitment maneuvers were performed. He was initially able to go down from 100% FiO2 to 90% FiO2. case d/w ICU team labs, imaging, records reviewed ~75ccmin required for evaluation, exam, review, intervention, discussion and formulation of plan of care for this critically ill patient with acute hypoxic respiratory failure intubated and on mechanical ventilation at high risk for further and ongoing decompensation.
[2025-02-27] MEDS: Vancomycin Inj 2,000 MG in SODIUM CHLORIDE 0.9% 500 ML 500 ML 150 MG IV (15:22)
[2025-02-27] MEDS: PIPER/TAZO INJ 4.5 GM in SODIUM CHLORIDE 0.9% (POP) 100 ML IV ×2 (15:25→23:42)
[2025-02-27] MEDS: FUROSEMIDE INJ 10 MG/ML 4ML VIAL 60 MG IVP (17:03)
[2025-02-27 18:05] LABS: Lactate (Lactic Acid) 5.1 mMol/L (0.4-2.0)
[2025-02-27] MEDS: AMIODARONE 150 MG IVPB 150 MG/100 ML BAG 600 MG IV (19:31)
[2025-02-27] MEDS: AMIODARONE 360 MG IVPB 360 MG/200 ML BAG 33.333 MG IV (19:46)
[2025-02-27] MEDS: Norepinephrine/D5W 8mg/250ml 8 MG/250 ML BAG 47.469 MG IV (19:59)
[2025-02-27 20:10] LABS: Alanine Aminotransferase 78 U/L (10-49); Albumin, Serum 3.5 gm/dL (3.4-4.8); Albumin/Globulin Ratio 1.5 (1.2-2.2); Alkaline Phosphatase 79 U/L (46-116); Anion Gap 8 (7-16); Aspartate Amino Transferase 215 U/L (0-34); BUN/Creatinine Ratio 13 Ratio (12-20); Bilirubin,Total 1.2 mg/dL (0.3-1.2); Blood Urea Nitrogen 29 mg/dL (9-23); Calcium 8.3 mg/dL (8.3-10.6); Calcium (Corrected) 8.7 mg/dL (8.5-10.1); Carbon Dioxide 27.9 mMol/L (20.0-31.0); Chloride 104 mMol/L (98-107); Creatinine (Component) 2.3 mg/dL (0.6-1.3); Estimated Creatinine Clearance 59.7 mL/min (>60); Globulin 2.3 gm/dL (2.3-3.5); Glucose 187 mg/dL (74-106); Osmolality,Calculated 290 (275-295); Potassium 5.2 mMol/L (3.4-5.1); Sodium 140 mMol/L (136-145); Total Protein 5.8 gm/dL (5.7-8.2); eGFR 31 See Note
[2025-02-27] MEDS: ENOXAPARIN SOD INJ 40 MG/0.4 ML SYRINGE SC (20:47)
[2025-02-27 21:02] LABS: Reflex Lactate? Y
[2025-02-27] MEDS: BUMETANIDE INJ 0.25 MG/ML VIAL 4 ML 1 MG IV (22:11)
[2025-02-28] VITALS (127 sets, daily range): BP systolic 78–134; BP diastolic 47–92; PULSE 104–149; RESP 18–40; TEMP 37–38; O2SAT 75–99; BMI 79.4; BMI 85.7
[2025-02-28 00:23] LABS: Lactate (Lactic Acid) 2.8 mMol/L (0.4-2.0)
[2025-02-28 00:30] LABS: Reflex Lactate? Y
[2025-02-28] MEDS: Norepinephrine/D5W 8mg/250ml 8 MG/250 ML BAG 38.838 MG IV (01:15)
[2025-02-28] MEDS: AMIODARONE 360 MG IVPB 360 MG/200 ML BAG 16.667 MG IV ×2 (01:49→13:56)
[2025-02-28 03:18] LABS: Lactate (Lactic Acid) 2.8 mMol/L (0.4-2.0)
[2025-02-28 03:20] LABS: Reflex Lactate? Y
[2025-02-28 05:19] LABS: Lactate (Lactic Acid) 3.1 mMol/L (0.4-2.0)
[2025-02-28 05:24] LABS: Basophils # (Auto) 0.1 Thou/mm3 (0.0-0.2); Basophils % (Auto) 0 % (0-2.5); Eosinophils # (Auto) 0.1 Thou/mm3 (0.0-0.5); Eosinophils % (Auto) 1 % (0-10); Hematocrit 43.3 % (41.0-53.0); Hemoglobin 13.9 g/dL (13.5-16.0); Immature Granulocytes % (Auto) 1 % (0-0); Immature Granulocytes Auto 0.15 Thou/mm3 (0.00-0.00); Lymphocytes # (Auto) 0.7 Thou/mm3 (1.0-4.8); Lymphocytes % (Auto) 5 % (10-50); Mean Corpuscular HGB Conc 32.1 g/dl (31.0-37.0); Mean Corpuscular Hemoglobin 28.7 pg (25.0-35.0); Mean Corpuscular Volume 90 fL (80-100); Monocytes # (Auto) 1.1 Thou/mm3 (0.0-0.8); Monocytes % (Auto) 8 % (0-12); Neutrophils # (Auto) 12.5 Thou/mm3 (1.8-7.7); Neutrophils % (Auto) 86 % (37-80); Nucleated Red Blood Cell # 0.02 Thou/mm3 (0.00-0.00); Nucleated Red Blood Cell % 0 /100 WBC (0); Platelet Count 297 Thou/mm3 (140-440); RDW Standard Deviation 45.2 fL (35.1-43.9); Red Blood Count 4.84 Miln/mm3 (4.50-5.90); White Blood Count 14.6 Thou/mm3 (3.8-10.6)
[2025-02-28 05:29] LABS: Base Excess 2 (-3-3); HCO3 28 mEq/L (20-26); Inspired Oxygen, FIO2 90 %; O2 Saturation 95 % (91-98); PCO2 48 mmHg (32.0-48.0); PO2 78 mmHg (83-108); pH, Arterial 7.37 (7.35-7.45)
[2025-02-28] MEDS: PIPER/TAZO INJ 4.5 GM in SODIUM CHLORIDE 0.9% (POP) 100 ML IV ×3 (05:34→21:03)
[2025-02-28 05:40] LABS: Allen Test Performed/OK; Puncture Site Left Radial
[2025-02-28 05:51] LABS: Alanine Aminotransferase 81 U/L (10-49); Albumin, Serum 3.2 gm/dL (3.4-4.8); Albumin/Globulin Ratio 1.4 (1.2-2.2); Alkaline Phosphatase 86 U/L (46-116); Anion Gap 8 (7-16); Aspartate Amino Transferase 179 U/L (0-34); BUN/Creatinine Ratio 12 Ratio (12-20); Blood Urea Nitrogen 32 mg/dL (9-23); Calcium (Corrected) 8.6 mg/dL (8.5-10.1); Carbon Dioxide 25.8 mMol/L (20.0-31.0); Chloride 104 mMol/L (98-107); Creatinine (Component) 2.7 mg/dL (0.6-1.3); Estimated Creatinine Clearance 50.8 mL/min (>60); Globulin 2.3 gm/dL (2.3-3.5); Glucose 217 mg/dL (74-106); Osmolality,Calculated 289 (275-295); Potassium 5.4 mMol/L (3.4-5.1); Sodium 138 mMol/L (136-145); Total Protein 5.5 gm/dL (5.7-8.2); eGFR 25 See Note
--- NOTE | 2025-02-28 06:00 | XR_ITS ---
Examination: AP chest single view Technique one AP portable semiupright chest single view Exam date and time: February 28, 2025 0544 hrs. Comparison February 27, 2025 Indications: Hypoxic respiratory failure postintubation, extensive bilateral pneumonia of pulmonary edema on earlier chest films. Findings: Mild enlargement cardiac contour Prominent vascular congestion Extensive bilateral pneumonia and/or pulmonary edema Endotracheal tube tip 5.7 cm above nunu The chest to is not centered to assess lower position of the orogastric tube Impression: Extensive bilateral pneumonia and probable pulmonary edema Endotracheal tube tip 5.7 cm above nunu
[2025-02-28 06:16] LABS: Reflex Lactate? Y
[2025-02-28] MEDS: ENOXAPARIN SOD INJ 40 MG/0.4 ML SYRINGE SC ×2 (08:11→21:03)
[2025-02-28] MEDS: PANTOPRAZOLE INJ 40 MG VIAL IV (08:12)
[2025-02-28 08:14] LABS: Reflex Lactate? Y
[2025-02-28] MEDS: VANCOMYCIN/WATER 1250 MG IVPB 250 ML 120 MG IV (10:02)
[2025-02-28] MEDS: Norepinephrine/D5W 8mg/250ml 8 MG/250 ML BAG 12.946 MG IV (10:58)
--- NOTE | 2025-02-28 11:21 | XR_ITS ---
Examination: AP chest single view TECHNIQUE: Portable AP chest single view Exam date and time: February 28, 2025 1132 hours Comparison February 28, 2025 INDICATIONS: Hypoxic respiratory failure this week post intubation FINDINGS: Bilateral perihilar bibasilar pneumonia Endotracheal tube tip 5.4 cm above nunu The orogastric tube is not diagnostically visualized Prominent vascular congestion with mild enlargement cardiac contour IMPRESSION: Significant bilateral pneumonia Mild associated heart failure
--- NOTE | 2025-02-28 11:24 | ESPR_ITS ---
Documentation for date of: 02/28/25 Subjective Subjective Interval history: 64-year-old male with past medical history of DM2, hypertension, and A-fib was admitted to the ICU on 02/27/2025 after coming to the ED with complaints of altered mental status and shortness of breath. Patient was intubated in the ED therefore most of the history was taken from chart review and from the parents who are at bedside. Patient's parents stated that yesterday morning patient could not get up from his chair and then later that evening/night he started getting confused and was not making sense when he was seen. This morning EMS found the patient on the floor and he was saturating in the 70s even on high flow nasal cannula. Given his hypoxia patient was intubated in the ED. As per parents were at bedside they stated that prior to this patient was able to walk around, but that since yesterday morning he was unable to walk. On assessment patient was intubated, but was still able to answer yes or no questions. He was also able to follow commands. Patient spiked a fever while in the ED and he became hypotensive unresponsive to IV fluids therefore he was placed on vasopressors. 02/28/2025: Patient was seen examined at bedside this morning. Overnight patient did spike a fever of 100.4 and he had no measurable urine output. Patient placed on amio drip overnigth. He was also given Bumex 1 mg x 1 overnight to see if he had better urine output, but none was measured. Today's patient's chest x-ray this looks like it is improving and he did have wet pants and some urine in the pure wick catheter. Will start patient on Bumex drip at 1 mg and will monitor patient's daily weights. Patient was on very low-dose of Levophed therefore we will start patient on midodrine 10 mg every 6 hours and wean off Levophed entirely. Patient is nasogastric tube was not visualized had x-ray, but on auscultation air was audible in the stomach when hand was placed through the nasogastric tube. Will discontinue patient's vancomycin and Zosyn if his MRSA is negative and will transition to azithromycin and Rocephin. Exam Vital Signs Temp Pulse Resp BP Pulse Ox O2 Del Method O2 Flow Rate 100.0 F 142 H 28 H 116/61 98 Mechanical Ventilation 70 02/28/25 08:00 02/28/25 11:16 02/28/25 09:25 02/28/25 11:16 02/28/25 11:16 02/28/25 08:00 02/27/25 13:00 FiO2 75 02/28/25 10:31 Narrative Exam General: Mechanically intubated, morbidly obese, able to follow commands, A/Ox3 Eyes: PERRL, EOMI. Anicteric, vision grossly intact. Ears: No ear pain, no ear discharge, Hearing grossly intact. Nose: No nasal discharge. Mouth/Throat: Moist mucous membranes, no redness, no lesions. Neck: Short neck non-tender, no cervical lymphadenopathy. Lungs: Clear BANG in upper lobes, but still decreased in lower lobes likely due to body habitus Cardio: Distant heart sounds likely due to body habitus, normal S1/S2, regular rhythm, no murmurs, no JVD Abdomen: Swollen lower abdomen still present, no palpable masses, peristalsis present, no guarding or rebound. Extremities: Symmetrical, no significant deformities, 2+ peripheral edema , non- tender, peripheral pulses presents. Skin: No rashes, no lesions, warm to touch. Neuro: Able to follow commands, pupils reactive to light, able to move all extremities Objective Labs 02/28/25 04:45 02/28/25 04:45 Labs: Laboratory Results - last 24 hr 02/27/25 02/27/25 02/27/25 10:12 17:43 21:08 WBC RBC Hgb Hct MCV MCH MCHC RDW Std Deviation Plt Count Neut % (Auto) Lymph % (Auto) [place] % (Auto) Eos % (Auto) Baso % (Auto) Neut # (Auto) Lymph # (Auto) [place] # (Auto) Eos # (Auto) Baso # (Auto) Immature Gran # (Auto) Absolute Nucleated RBC Immature Gran % Nucleated RBC % Puncture Site ABG pH ABG pCO2 ABG pO2 ABG HCO3 ABG O2 Saturation ABG Base Excess FiO2 Sodium 140 Potassium 5.2 H Chloride 104 Carbon Dioxide 27.9 Anion Gap 8 BUN 29 H Creatinine 2.3 H Estim Creat Clear Calc 59.7 L eGFR 31 L BUN/Creatinine Ratio 13 Glucose 187 H Calculated Osmolality 290 Lactic Acid 5.1 H* 3.0 H Calcium 8.3 Corrected Calcium 8.7 Total Bilirubin 1.2 AST 215 H ALT 78 H Alkaline Phosphatase 79 B-Natriuretic Peptide 368 H Total Protein 5.8 Albumin 3.5 D Globulin 2.3 Albumin/Globulin Ratio 1.5 Random Vancomycin 02/27/25 02/28/25 02/28/25 23:59 03:05 04:45 WBC 14.6 H RBC 4.84 Hgb 13.9 Hct 43.3 MCV 90 MCH 28.7 MCHC 32.1 RDW Std Deviation 45.2 H Plt Count 297 D Neut % (Auto) 86 H Lymph % (Auto) 5 L [place] % (Auto) 8 Eos % (Auto) 1 Baso % (Auto) 0 Neut # (Auto) 12.5 H Lymph # (Auto) 0.7 L [place] # (Auto) 1.1 H Eos # (Auto) 0.1 Baso # (Auto) 0.1 Immature Gran # (Auto) 0.15 H Absolute Nucleated RBC 0.02 H Immature Gran % 1 H Nucleated RBC % 0 Puncture Site ABG pH ABG pCO2 ABG pO2 ABG HCO3 ABG O2 Saturation ABG Base Excess FiO2 Sodium 138 Potassium 5.4 H Chloride 104 Carbon Dioxide 25.8 Anion Gap 8 BUN 32 H Creatinine 2.7 H Estim Creat Clear Calc 50.8 L eGFR 25 L BUN/Creatinine Ratio 12 Glucose 217 H Calculated Osmolality 289 Lactic Acid 2.8 H 2.8 H 3.1 H Calcium 8.0 L Corrected Calcium 8.6 Total Bilirubin 1.0 AST 179 H ALT 81 H Alkaline Phosphatase 86 B-Natriuretic Peptide Total Protein 5.5 L Albumin 3.2 L Globulin 2.3 Albumin/Globulin Ratio 1.4 Random Vancomycin 11.0 02/28/25 02/28/25 04:57 08:00 WBC RBC Hgb Hct MCV MCH MCHC RDW Std Deviation Plt Count Neut % (Auto) Lymph % (Auto) [place] % (Auto) Eos % (Auto) Baso % (Auto) Neut # (Auto) Lymph # (Auto) [place] # (Auto) Eos # (Auto) Baso # (Auto) Immature Gran # (Auto) Absolute Nucleated RBC Immature Gran % Nucleated RBC % Puncture Site Left Radial ABG pH 7.37 D ABG pCO2 48 ABG pO2 78 L D ABG HCO3 28 H ABG O2 Saturation 95 ABG Base Excess 2 FiO2 90 Sodium Potassium Chloride Carbon Dioxide Anion Gap BUN Creatinine Estim Creat Clear Calc eGFR BUN/Creatinine Ratio Glucose Calculated Osmolality Lactic Acid 2.0 Calcium Corrected Calcium Total Bilirubin AST ALT Alkaline Phosphatase B-Natriuretic Peptide Total Protein Albumin Globulin Albumin/Globulin Ratio Random Vancomycin ABG Interpretation ABG results: 02/27/25 02/28/25 06:55 04:57 ABG pH 7.27 L 7.37 D ABG pCO2 57 H 48 ABG pO2 101 78 L D ABG HCO3 26 28 H ABG O2 Saturation 98 95 ABG Base Excess -2 2 Quality Measures Quality Measures sepsis Current suspected stage: sepsis Possible source: pulmonary Blood cultures ordered: completed in ED Antibiotic ordered: Yes Advance care planning discussed with:: patient Assessment & Plan Assessment Current Active Medications: Generic Name Dose Route Start Last Admin Trade Name Freq PRN Reason Stop Dose Admin Acetaminophen 650 mg 02/27/25 09:24 Acetaminophen 325 Mg Tablet PO 03/29/25 09:23 Q4HR PRN PAIN SCALE 1-3 (mild Acetaminophen 650 mg 02/27/25 09:24 Acetaminophen Supp 650 Mg Supp FL 03/29/25 09:23 Q4HR PRN PAIN SCALE 1-3 (mild Al Hydrox/Mg Hydrox/Simethicone 30 ml 02/27/25 09:24 Mg Hyd/Al Hyd/Virgilio (Maalox Reg) Susp 30 Ml Udc PO 03/29/25 09:23 Q4HR PRN Heartburn or Upset Stomach Enoxaparin Sodium 40 mg 02/27/25 21:00 02/28/25 08:11 Enoxaparin Sod Inj 40 Mg/0.4 Ml Syringe SC 03/13/25 20:59 40 mg Q12HR KOURTNEY Administration Norepinephrine/Dextrose 8 mg in 250 mls @ 21.577 mls/hr 02/27/25 06:58 02/28/25 10:58 Levophed In D5w 8mg/250ml IV 03/29/25 06:57 0.03 mcg/kg/min .[id number] PRN 12.946 mls/hr PER PROTOCOL Administration Protocol 0.05 MCG/KG/MIN Amiodarone HCl/Dextrose 360 mg in 200 mls @ 16.667 mls/hr 02/28/25 01:37 02/28/25 01:49 Nexterone Ivpb IV 03/01/25 01:36 16.667 mls/hr .Q12H KOURTNEY Administration Vancomycin HCl 250 mls @ 120 mls/hr 02/28/25 10:00 02/28/25 10:02 Vancomycin/Water 1250 Mg Ivpb IV 02/28/25 12:04 120 mls/hr X1 ONE Administration Piperacillin Sod/Tazobactam 100 mls @ 25 mls/hr 02/28/25 14:00 Sod 4.5 gm/ Sodium Chloride IV 03/07/25 13:59 Q8HR KOURTNEY Protocol Bumetanide 20 mg/ IV 80 mls @ 4 mls/hr 02/28/25 11:04 Miscellaneous Supplies IV 03/01/25 07:03 .Q20H KOURTNEY 1 MG/HR Magnesium Hydroxide 30 ml 02/27/25 09:24 Milk Of Magnesia Susp 30 Ml Udc PO 03/29/25 09:23 QDAY PRN CONSTIPATION Midodrine 10 mg 02/28/25 12:00 Midodrine 5 Mg Tablet PO 03/30/25 11:59 Q6HR KOURTNEY Nitroglycerin 0.4 mg 02/27/25 09:24 Nitroglycerin 0.4 Mg Subl Btl #25 SL Q5MIN PRN CHEST PAIN Pantoprazole Sodium 40 mg 02/27/25 11:15 02/28/25 08:12 Pantoprazole Inj 40 Mg Vial IV 03/29/25 11:14 40 mg QDAY KOURTNEY Administration Pharmacy Consult 1 each 02/27/25 14:30 Vancomycin Pharmacy To Dose 1 Each Each IV 03/29/25 14:29 QDAY PRN CONSULT Plan 64-year-old male with past medical history of DM2, hypertension, and A-fib was admitted to the ICU on 02/27/2025 for shock and acute hypoxic respiratory failure. 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 Patient's chest x-ray today showed improvement Echo pending Bumex drip Daily weights #Hx of A-fib Patient does have a history of A-fib On metoprolol succinate 100 mg daily at home Not on any anticoagulation [id number] score of 3 points indicating 3.2% risk of stroke per year Has bled score of 0 On Amio drip Consider anticoagulation prior to discharge Echo pending Respiratory: #Acute hypoxic respiratory failure #Community-acquired pneumonia Patient was intubated on 02/27/2025 after he was found to be hypoxic Chest x-ray showed some possible pneumonia Patient's hypoxia could also be due to obesity hypoventilation syndrome versus pulmonary edema versus pneumonia Will continue to wean down O2 Will get daily ABGs and chest x-rays Continue Zosyn and vancomycin, will change to azithromycin and Rocephin if MRSA nares come back negative Cocci negative Renal: #KENIA #Lactic acidosis, resolved Patient came in with creatinine of 2.1 and lactic acid of 5.5 Patient's baseline creatinine is around show 0.9 from 10/2022 Bumex drip 1 mg Avoid nephrotoxic agent Renally dose medication #Hyperkalemia Patient potassium 5.4 today Will repeat CMP at 3 PM GI: #Transaminitis #Hyperbilirubinemia Could be due to congestive hepatopathy Patient came in with bilirubin of 1.3 and AST 129 Will continue to monitor on daily CMP's Endo: #Morbid obesity Patient has a BMI of 79.5 Heme: #Leukocytosis WBC downtrending ID: #Community-acquired pneumonia Blood cultures ordered Cocci negative Will continue vancomycin and Zosyn, will switch to azithromycin and Rocephin if MRSA nares negative Hospital Maintenance: Diet: N.p.o. DVT ppx: Lovenox 40 mg q12 hr GI ppx: protonix IV lines: PIV Fuller: Pure wick Code status: Full code Dispo: ICU for shock and acute hypoxic respiratory failure. Case disclosed with Attending Dr. Hans Cornejo PGY1
[2025-02-28] MEDS: BUMETANIDE INJ 20 MG in CONTAINER,EMPTY 50 ML 1 BAG 4 MG IV (12:11)
[2025-02-28 13:00] LABS: Cocci Serology, IgM Negative (Negative)
[2025-02-28] MEDS: MIDODRINE 5 MG TABLET 10 MG PO ×2 (13:02→18:02)
--- NOTE | 2025-02-28 13:08 | PC.NURSE ---
weight obtained per Dr. Dallas with built in bed scale
--- NOTE | 2025-02-28 13:27 | PD.INTPROG ---
Documentation for date of: 02/28/25 Subjective Subjective Interval history: This 64-year-old male admitted yesterday from the ER for acute hypoxic respiratory failure. The patient has super morbid obesity with a BMI of 85. He is felt to have underlying heart failure with question of possible pneumonia. There were no acute overnight events. Unable to insert Fuller to monitor I's and O's. Unclear how much urine he is put out after the diuretic. There has been a slight decrease in his FiO2 requirements overnight from 90 to 75%. He remains with a low-grade temp with a Tmax of 100.4. Critical Care Note Critical care time (min.): 55 Exam Vital Signs Temp Pulse Resp BP Pulse Ox O2 Del Method O2 Flow Rate 100.2 F 132 H 28 H 93/70 92 L Mechanical Ventilation 70 02/28/25 12:01 02/28/25 13:02 02/28/25 09:25 02/28/25 13:02 02/28/25 12:01 02/28/25 12:01 02/27/25 13:00 FiO2 75 02/28/25 12:01 Narrative Exam Gen- NAD, intubated, not on sedation, morbid obesity, awake alert and able to follow commands HEENT-normocephalic, atraumatic, sclera icteric, ET tube in OG tube in place, oral mucosas hydrated, pupils equal reactive Chest-lungs clear to auscultation though severely diminished due to body habitus, heart irregular tach, no bradycardia murmurs auscultated on exam, no increased work of breathing Abdomen-soft, no rebound, no guarding, significant edema of lower pannus, bowel sounds are distant Extremities-edema of bilateral lower extremities, healing, skin changes noted, pulses are palpable, no focal deficits Vent AC VC Drips levo Physical Exam Completion Physical Exam Complete?: Yes Objective - Substance Abuse Technician Labs 02/28/25 04:45 02/28/25 04:45 Labs: Laboratory Results - last 24 hr 02/27/25 02/27/25 02/27/25 17:43 19:09 21:08 WBC RBC Hgb Hct MCV MCH MCHC RDW Std Deviation Plt Count Neut % (Auto) Lymph % (Auto) [place] % (Auto) Eos % (Auto) Baso % (Auto) Neut # (Auto) Lymph # (Auto) [place] # (Auto) Eos # (Auto) Baso # (Auto) Immature Gran # (Auto) Absolute Nucleated RBC Immature Gran % Nucleated RBC % Puncture Site ABG pH ABG pCO2 ABG pO2 ABG HCO3 ABG O2 Saturation ABG Base Excess FiO2 Sodium 140 Potassium 5.2 H Chloride 104 Carbon Dioxide 27.9 Anion Gap 8 BUN 29 H Creatinine 2.3 H Estim Creat Clear Calc 59.7 L eGFR 31 L BUN/Creatinine Ratio 13 Glucose 187 H Calculated Osmolality 290 Lactic Acid 5.1 H* 3.0 H Calcium 8.3 Corrected Calcium 8.7 Total Bilirubin 1.2 AST 215 H ALT 78 H Alkaline Phosphatase 79 Total Protein 5.8 Albumin 3.5 D Globulin 2.3 Albumin/Globulin Ratio 1.5 Random Vancomycin Coccidioides IgM Ab Negative 02/27/25 02/28/25 02/28/25 23:59 03:05 04:45 WBC 14.6 H RBC 4.84 Hgb 13.9 Hct 43.3 MCV 90 MCH 28.7 MCHC 32.1 RDW Std Deviation 45.2 H Plt Count 297 D Neut % (Auto) 86 H Lymph % (Auto) 5 L [place] % (Auto) 8 Eos % (Auto) 1 Baso % (Auto) 0 Neut # (Auto) 12.5 H Lymph # (Auto) 0.7 L [place] # (Auto) 1.1 H Eos # (Auto) 0.1 Baso # (Auto) 0.1 Immature Gran # (Auto) 0.15 H Absolute Nucleated RBC 0.02 H Immature Gran % 1 H Nucleated RBC % 0 Puncture Site ABG pH ABG pCO2 ABG pO2 ABG HCO3 ABG O2 Saturation ABG Base Excess FiO2 Sodium 138 Potassium 5.4 H Chloride 104 Carbon Dioxide 25.8 Anion Gap 8 BUN 32 H Creatinine 2.7 H Estim Creat Clear Calc 50.8 L eGFR 25 L BUN/Creatinine Ratio 12 Glucose 217 H Calculated Osmolality 289 Lactic Acid 2.8 H 2.8 H 3.1 H Calcium 8.0 L Corrected Calcium 8.6 Total Bilirubin 1.0 AST 179 H ALT 81 H Alkaline Phosphatase 86 Total Protein 5.5 L Albumin 3.2 L Globulin 2.3 Albumin/Globulin Ratio 1.4 Random Vancomycin 11.0 Coccidioides IgM Ab 02/28/25 02/28/25 04:57 08:00 WBC RBC Hgb Hct MCV MCH MCHC RDW Std Deviation Plt Count Neut % (Auto) Lymph % (Auto) [place] % (Auto) Eos % (Auto) Baso % (Auto) Neut # (Auto) Lymph # (Auto) [place] # (Auto) Eos # (Auto) Baso # (Auto) Immature Gran # (Auto) Absolute Nucleated RBC Immature Gran % Nucleated RBC % Puncture Site Left Radial ABG pH 7.37 D ABG pCO2 48 ABG pO2 78 L D ABG HCO3 28 H ABG O2 Saturation 95 ABG Base Excess 2 FiO2 90 Sodium Potassium Chloride Carbon Dioxide Anion Gap BUN Creatinine Estim Creat Clear Calc eGFR BUN/Creatinine Ratio Glucose Calculated Osmolality Lactic Acid 2.0 Calcium Corrected Calcium Total Bilirubin AST ALT Alkaline Phosphatase Total Protein Albumin Globulin Albumin/Globulin Ratio Random Vancomycin Coccidioides IgM Ab Assessment & Plan Additional Assessment Additional Assessment: In summary this is a 64yo M 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 Pt appears to be volume overloaded and no signs of bleeding therefore not felt to be hypovolemic. ? distributive 2/2 sepsis - started on midodrine today - on low dose levo - echo pending Resp Acute hypoxic respiratory failure-currently intubated and on mechanical ventilation, follow-up with ABG and chest x-ray. Still requiring significant FiO2 today. Will continue to wean as able Pulmonary edema-will diurese as able Pneumonia-at this point in time it is felt that most the changes on chest x-ray are consistent with pulmonary edema however given his presentation there is possibility for an aspiration event as well. Cultures are pending. He is currently on antibiotics. Renal Hyperkalemia-minimal and anticipate improvement if the patient responds to diuretics Acute kidney injury-avoid nephrotoxins as able, difficulty monitoring urinary output as unable to access the patient's urethra. Will consult urology, will attempt to obtain a renal ultrasound. If the patient continues with minimal urinary output may require dialysis for volume removal GI GI prophylaxis- PPI Transaminitis-starting to trend down from yesterday - Will check a viral panel - May be related to a degree of hypoxia and hypotension versus hepatic congestion Endo Diabetes-sliding scale of insulin and fingersticks Heme Leukocytosis-trending down from yesterday DVT prophylaxis-Lovenox 40 every 12 ID Sepsis- meets criteria for SIRS with location being lungs, on abx, fu on cx Case discussed with ICU team and patient labs, imaging and records reviewed ~55cc min required for eval, exam, review, intervention, discussion formulation of plan of care for his critically ill patient with hypoxic respiratory failure intubated and on mechanical ventilation at high risk of further ongoing decompensation Provider Notation Provider Notation: Although this document has been carefully reviewed, there may still be some phonetic and other typographical errors. These errors are purely grammatical due to imperfections in the software program and should not be construed in any way to compromise the substance of the patient's medical care during this visit. Thank you for the opportunity and privilege in assisting you with this patient's care and management.
--- NOTE | 2025-02-28 13:34 | PC.SS ---
1530: attempted contact with patient's father, Zia Ortega via phone call at [phone], he was unavailable. Voicemail provided.
[2025-02-28 13:35] LABS: Lactate (Lactic Acid) 2.1 mMol/L (0.4-2.0)
[2025-02-28 14:54] LABS: Hepatitis A Antibody IgM Non Reactive (Non React); Hepatitis B Core Antibody IgM Non Reactive (Non React); Hepatitis B Surface Antigen Non Reactive (Non React); Hepatitis C Antibody Non Reactive (Non React)
[2025-02-28 15:46] LABS: Alanine Aminotransferase 90 U/L (10-49); Albumin, Serum 2.9 gm/dL (3.4-4.8); Albumin/Globulin Ratio 1.4 (1.2-2.2); Alkaline Phosphatase 82 U/L (46-116); Anion Gap 8 (7-16); Aspartate Amino Transferase 166 U/L (0-34); BUN/Creatinine Ratio 12 Ratio (12-20); Bilirubin,Total 0.9 mg/dL (0.3-1.2); Blood Urea Nitrogen 36 mg/dL (9-23); Calcium 7.7 mg/dL (8.3-10.6); Calcium (Corrected) 8.6 mg/dL (8.5-10.1); Carbon Dioxide 25.1 mMol/L (20.0-31.0); Chloride 105 mMol/L (98-107); Creatinine (Component) 2.9 mg/dL (0.6-1.3); Estimated Creatinine Clearance 49.8 mL/min (>60); Globulin 2.1 gm/dL (2.3-3.5); Glucose 206 mg/dL (74-106); Osmolality,Calculated 289 (275-295); Potassium 5.3 mMol/L (3.4-5.1); Sodium 138 mMol/L (136-145); eGFR 23 See Note
--- NOTE | 2025-02-28 16:04 | PC.DIETICIAN ---
Nutrition prescription If EN is indicated, consider: Vital 1.2 at 20 ml/hr via OG tube by pump. Advance 10 ml every 8 hrs to goal rate of 60 ml/hr x 24 hrs. If no IV fluids, water flushes of 30 ml/hr (or per MD).
[2025-02-28 16:34] LABS: Reflex Lactate? Y
[2025-02-28 16:58] LABS: Lactic Acid, 3 HR 3.1 mMol/L (0.4-2.0)
[2025-03-01] VITALS (65 sets, daily range): BP systolic 70–139; BP diastolic 49–96; PULSE 90–150; RESP 13–43; TEMP 36.7–37.1; O2SAT 88–98; BMI 85.3
[2025-03-01] MEDS: MIDODRINE 5 MG TABLET 10 MG PO ×3 (00:17→11:00)
[2025-03-01 04:45] LABS: Base Excess 3 (-3-3); HCO3 28 mEq/L (20-26); Inspired Oxygen, FIO2 70 %; O2 Saturation 93 % (91-98); PCO2 44 mmHg (32.0-48.0); PO2 69 mmHg (83-108); pH, Arterial 7.41 (7.35-7.45)
[2025-03-01 04:46] LABS: Allen Test Performed/OK; Puncture Site Right Radial
[2025-03-01] MEDS: PIPER/TAZO INJ 4.5 GM in SODIUM CHLORIDE 0.9% (POP) 100 ML IV (05:26)
--- NOTE | 2025-03-01 06:00 | XR_ITS ---
Examination: AP chest single view Technique one AP portable semiupright chest single view Exam date and time: March 01, 2025 0430 hrs. Comparison February 28, 2025 Indications: Hypoxic respiratory failure, postintubation, pneumonia and heart failure on earlier chest imaging Findings: Heart failure pattern with cardiomegaly prominent vascular congestion and perihilar edema Pneumonia at the lung bases Orogastric tube in the distal portion is not diagnostically visualized The endotracheal tube projects above the nunu No pneumothorax Impression: [id number] heart failure Significant pneumonia both lung bases
[2025-03-01 07:03] LABS: Basophils # (Auto) 0.1 Thou/mm3 (0.0-0.2); Basophils % (Auto) 0 % (0-2.5); Eosinophils % (Auto) 0 % (0-10); Hematocrit 38.8 % (41.0-53.0); Immature Granulocytes % (Auto) 1 % (0-0); Lymphocytes # (Auto) 1.1 Thou/mm3 (1.0-4.8); Lymphocytes % (Auto) 7 % (10-50); Mean Corpuscular HGB Conc 33.5 g/dl (31.0-37.0); Mean Corpuscular Hemoglobin 29.1 pg (25.0-35.0); Mean Corpuscular Volume 87 fL (80-100); Monocytes # (Auto) 1.5 Thou/mm3 (0.0-0.8); Monocytes % (Auto) 10 % (0-12); Neutrophils # (Auto) 12.7 Thou/mm3 (1.8-7.7); Neutrophils % (Auto) 82 % (37-80); Nucleated Red Blood Cell % 0 /100 WBC (0); Platelet Count 232 Thou/mm3 (140-440); Red Blood Count 4.47 Miln/mm3 (4.50-5.90); White Blood Count 15.5 Thou/mm3 (3.8-10.6)
[2025-03-01 07:25] LABS: Alanine Aminotransferase 96 U/L (10-49); Albumin/Globulin Ratio 1.4 (1.2-2.2); Alkaline Phosphatase 98 U/L (46-116); Anion Gap 9 (7-16); Aspartate Amino Transferase 145 U/L (0-34); BUN/Creatinine Ratio 14 Ratio (12-20); Bilirubin,Total 0.8 mg/dL (0.3-1.2); Blood Urea Nitrogen 42 mg/dL (9-23); Calcium 7.8 mg/dL (8.3-10.6); Calcium (Corrected) 8.6 mg/dL (8.5-10.1); Carbon Dioxide 24.2 mMol/L (20.0-31.0); Chloride 105 mMol/L (98-107); Creatinine (Component) 3.1 mg/dL (0.6-1.3); Estimated Creatinine Clearance 46.3 mL/min (>60); Globulin 2.2 gm/dL (2.3-3.5); Glucose 182 mg/dL (74-106); Osmolality,Calculated 291 (275-295); Potassium 5.4 mMol/L (3.4-5.1); Sodium 138 mMol/L (136-145); Total Protein 5.2 gm/dL (5.7-8.2); Vancomycin,Random 13.6 mcg/mL; eGFR 21 See Note
[2025-03-01] MEDS: AMIODARONE HCL 200 MG TABLET PO (08:57)
[2025-03-01] MEDS: PANTOPRAZOLE INJ 40 MG VIAL IV (08:58)
[2025-03-01] MEDS: ENOXAPARIN SOD INJ 40 MG/0.4 ML SYRINGE SC ×2 (08:58→22:24)
[2025-03-01] MEDS: VANCOMYCIN/WATER 1250 MG IVPB 250 ML 120 MG IV (08:58)
[2025-03-01] MEDS: BUMETANIDE INJ 20 MG in CONTAINER,EMPTY 50 ML 1 BAG 8 MG IV (08:59)
[2025-03-01 09:47] LABS: Reflex Lactate? Y
[2025-03-01 10:12] LABS: Lactate (Lactic Acid) 3.1 mMol/L (0.4-2.0)
--- NOTE | 2025-03-01 10:16 | ESPR_ITS ---
Documentation for date of: 03/01/25 Subjective Subjective Interval history: 64-year-old male with past medical history of DM2, hypertension, and A-fib was admitted to the ICU on 02/27/2025 after coming to the ED with complaints of altered mental status and shortness of breath. Patient was intubated in the ED therefore most of the history was taken from chart review and from the parents who are at bedside. Patient's parents stated that yesterday morning patient could not get up from his chair and then later that evening/night he started getting confused and was not making sense when he was seen. This morning EMS found the patient on the floor and he was saturating in the 70s even on high flow nasal cannula. Given his hypoxia patient was intubated in the ED. As per parents were at bedside they stated that prior to this patient was able to walk around, but that since yesterday morning he was unable to walk. On assessment patient was intubated, but was still able to answer yes or no questions. He was also able to follow commands. Patient spiked a fever while in the ED and he became hypotensive unresponsive to IV fluids therefore he was placed on vasopressors. 02/28/2025: Patient was seen examined at bedside this morning. Overnight patient did spike a fever of 100.4 and he had no measurable urine output. Patient placed on amio drip overnigth. He was also given Bumex 1 mg x 1 overnight to see if he had better urine output, but none was measured. Today's patient's chest x-ray this looks like it is improving and he did have wet pants and some urine in the pure wick catheter. Will start patient on Bumex drip at 1 mg and will monitor patient's daily weights. Patient was on very low-dose of Levophed therefore we will start patient on midodrine 10 mg every 6 hours and wean off Levophed entirely. Patient is nasogastric tube was not visualized had x-ray, but on auscultation air was audible in the stomach when hand was placed through the nasogastric tube. Will discontinue patient's vancomycin and Zosyn if his MRSA is negative and will transition to azithromycin and Rocephin. 03/01/2025: Patient seen and examined at bedside this morning. Overnight patient went into A-fib with RVR and he finishes bolus of amiodarone. Patient had a documented urine output of 150, but that she states 1 were very wet. His Bumex drip finished overnight and they were not able to start more Bumex drip as there was not available in the pharmacy overnight. Patient's weight did go down from 249 to 247 kg. Blood cultures have been negative in 48 hours and MRSA nares negative. Will discontinue vancomycin and Zosyn and will start azithromycin and Rocephin. Patient's ventilator requirements have been unchanged, but has been saturating in the 94% therefore we will try and wean down on oxygen requirements. His blood pressure has been stable off Levophed and only on midodrine. His kidney function has been worsening, but expect improvement with more diuresis. Started Amiodarone 200mg qday. Exam Vital Signs Temp Pulse Resp BP Pulse Ox O2 Del Method O2 Flow Rate 98.3 F 110 H 28 H 139/73 H 91 L Mechanical Ventilation 70 03/01/25 04:00 03/01/25 09:00 03/01/25 09:00 03/01/25 09:00 03/01/25 09:00 03/01/25 04:00 02/27/25 13:00 FiO2 50 03/01/25 09:00 Narrative Exam General: Mechanically intubated, morbidly obese, able to follow commands, A/Ox3 Eyes: PERRL, EOMI. Anicteric, vision grossly intact. Ears: No ear pain, no ear discharge, Hearing grossly intact. Nose: No nasal discharge. Mouth/Throat: Moist mucous membranes, no redness, no lesions. Neck: Short neck non-tender, no cervical lymphadenopathy. Lungs: Clear BANG in upper lobes and decreased in Lower lobes. Cardio: Distant heart sounds likely due to body habitus, normal S1/S2, regular rhythm, no murmurs, no JVD Abdomen: Swollen lower abdomen still present mildly improving, no palpable masses, peristalsis present, no guarding or rebound. Extremities: Symmetrical, no significant deformities, 2+ peripheral edema , non- tender, peripheral pulses presents. Skin: No rashes, no lesions, warm to touch. Neuro: Able to follow commands, pupils reactive to light, able to move all extremities, but unable to move L toes today. Objective Labs 03/02/25 04:27 03/02/25 04:27 Labs: Laboratory Results - last 24 hr 02/27/25 02/28/25 02/28/25 19:09 04:35 13:22 WBC RBC Hgb Hct MCV MCH MCHC RDW Std Deviation Plt Count Neut % (Auto) Lymph % (Auto) [place] % (Auto) Eos % (Auto) Baso % (Auto) Neut # (Auto) Lymph # (Auto) [place] # (Auto) Eos # (Auto) Baso # (Auto) Immature Gran # (Auto) Absolute Nucleated RBC Immature Gran % Nucleated RBC % Puncture Site ABG pH ABG pCO2 ABG pO2 ABG HCO3 ABG O2 Saturation ABG Base Excess FiO2 Sodium Potassium Chloride Carbon Dioxide Anion Gap BUN Creatinine Estim Creat Clear Calc eGFR BUN/Creatinine Ratio Glucose Calculated Osmolality Lactic Acid 2.1 H Calcium Corrected Calcium Total Bilirubin AST ALT Alkaline Phosphatase Total Protein Albumin Globulin Albumin/Globulin Ratio Random Vancomycin Coccidioides IgM Ab Negative Hepatitis A IgM Ab Non Reactive Hep Bs Antigen Non Reactive Hep B Core IgM Ab Non Reactive Hepatitis C Antibody Non Reactive 02/28/25 02/28/25 03/01/25 15:00 16:35 04:39 WBC RBC Hgb Hct MCV MCH MCHC RDW Std Deviation Plt Count Neut % (Auto) Lymph % (Auto) [place] % (Auto) Eos % (Auto) Baso % (Auto) Neut # (Auto) Lymph # (Auto) [place] # (Auto) Eos # (Auto) Baso # (Auto) Immature Gran # (Auto) Absolute Nucleated RBC Immature Gran % Nucleated RBC % Puncture Site Right Radial ABG pH 7.41 ABG pCO2 44 ABG pO2 69 L ABG HCO3 28 H ABG O2 Saturation 93 ABG Base Excess 3 FiO2 70 Sodium 138 Potassium 5.3 H Chloride 105 Carbon Dioxide 25.1 Anion Gap 8 BUN 36 H Creatinine 2.9 H Estim Creat Clear Calc 49.8 L eGFR 23 L BUN/Creatinine Ratio 12 Glucose 206 H Calculated Osmolality 289 Lactic Acid 3.1 H Calcium 7.7 L Corrected Calcium 8.6 Total Bilirubin 0.9 AST 166 H ALT 90 H Alkaline Phosphatase 82 Total Protein 5.0 L Albumin 2.9 L Globulin 2.1 L Albumin/Globulin Ratio 1.4 Random Vancomycin Coccidioides IgM Ab Hepatitis A IgM Ab Hep Bs Antigen Hep B Core IgM Ab Hepatitis C Antibody 03/01/25 03/01/25 03/01/25 06:22 06:25 09:40 WBC 15.5 H RBC 4.47 L Hgb 13.0 L Hct 38.8 L MCV 87 MCH 29.1 MCHC 33.5 RDW Std Deviation 44.0 H Plt Count 232 D Neut % (Auto) 82 H Lymph % (Auto) 7 L [place] % (Auto) 10 Eos % (Auto) 0 Baso % (Auto) 0 Neut # (Auto) 12.7 H Lymph # (Auto) 1.1 [place] # (Auto) 1.5 H Eos # (Auto) 0.0 Baso # (Auto) 0.1 Immature Gran # (Auto) 0.10 H Absolute Nucleated RBC 0.00 Immature Gran % 1 H Nucleated RBC % 0 Puncture Site ABG pH ABG pCO2 ABG pO2 ABG HCO3 ABG O2 Saturation ABG Base Excess FiO2 Sodium 138 Potassium 5.4 H Chloride 105 Carbon Dioxide 24.2 Anion Gap 9 BUN 42 H Creatinine 3.1 H Estim Creat Clear Calc 46.3 L eGFR 21 L BUN/Creatinine Ratio 14 Glucose 182 H Calculated Osmolality 291 Lactic Acid 3.0 H 3.1 H Calcium 7.8 L Corrected Calcium 8.6 Total Bilirubin 0.8 AST 145 H ALT 96 H Alkaline Phosphatase 98 Total Protein 5.2 L Albumin 3.0 L Globulin 2.2 L Albumin/Globulin Ratio 1.4 Random Vancomycin 13.6 Coccidioides IgM Ab Hepatitis A IgM Ab Hep Bs Antigen Hep B Core IgM Ab Hepatitis C Antibody ABG Interpretation ABG results: 02/27/25 02/28/25 03/01/25 06:55 04:57 04:39 ABG pH 7.27 L 7.37 D 7.41 ABG pCO2 57 H 48 44 ABG pO2 101 78 L D 69 L ABG HCO3 26 28 H 28 H ABG O2 Saturation 98 95 93 ABG Base Excess -2 2 3 Quality Measures Quality Measures sepsis Current suspected stage: sepsis Possible source: pulmonary Blood cultures ordered: completed in ED Antibiotic ordered: Yes Advance care planning discussed with:: patient and other (parents) Assessment & Plan Assessment Current Active Medications: Generic Name Dose Route Start Last Admin Trade Name Freq PRN Reason Stop Dose Admin Acetaminophen 650 mg 02/27/25 09:24 Acetaminophen 325 Mg Tablet PO 03/29/25 09:23 Q4HR PRN PAIN SCALE 1-3 (mild Acetaminophen 650 mg 02/27/25 09:24 Acetaminophen Supp 650 Mg Supp CO 03/29/25 09:23 Q4HR PRN PAIN SCALE 1-3 (mild Al Hydrox/Mg Hydrox/Simethicone 30 ml 02/27/25 09:24 Mg Hyd/Al Hyd/Virgilio (Maalox Reg) Susp 30 Ml Udc PO 03/29/25 09:23 Q4HR PRN Heartburn or Upset Stomach Amiodarone HCl 200 mg 03/01/25 09:00 03/01/25 08:57 Amiodarone Hcl 200 Mg Tablet PO 03/31/25 08:59 200 mg QDAY KOURTNEY Administration Enoxaparin Sodium 40 mg 02/27/25 21:00 03/01/25 08:58 Enoxaparin Sod Inj 40 Mg/0.4 Ml Syringe SC 03/13/25 20:59 40 mg Q12HR KOURTNEY Administration Norepinephrine/Dextrose 8 mg in 250 mls @ 21.577 mls/hr 02/27/25 06:58 02/28/25 13:49 Levophed In D5w 8mg/250ml IV 03/29/25 06:57 0 mcg/kg/min .[id number] PRN 0 mls/hr PER PROTOCOL Titration Protocol 0.05 MCG/KG/MIN Piperacillin Sod/Tazobactam 100 mls @ 25 mls/hr 02/28/25 14:00 03/01/25 05:26 Sod 4.5 gm/ Sodium Chloride IV 03/07/25 13:59 25 mls/hr Q8HR KOURTNEY Administration Protocol Bumetanide 20 mg/ IV 80 mls @ 8 mls/hr 03/01/25 08:34 03/01/25 08:59 Miscellaneous Supplies IV 03/02/25 04:33 2 mg/hr .Q10H KOURTNEY 8 mls/hr Administration 2 MG/HR Magnesium Hydroxide 30 ml 02/27/25 09:24 Milk Of Magnesia Susp 30 Ml Udc PO 03/29/25 09:23 QDAY PRN CONSTIPATION Midodrine 10 mg 02/28/25 12:00 03/01/25 05:25 Midodrine 5 Mg Tablet PO 03/30/25 11:59 10 mg Q6HR KOURTNEY Administration Nitroglycerin 0.4 mg 02/27/25 09:24 Nitroglycerin 0.4 Mg Subl Btl #25 SL Q5MIN PRN CHEST PAIN Pantoprazole Sodium 40 mg 02/27/25 11:15 03/01/25 08:58 Pantoprazole Inj 40 Mg Vial IV 03/29/25 11:14 40 mg QDAY KOURTNEY Administration Plan 64-year-old male with past medical history of DM2, hypertension, and A-fib was admitted to the ICU on 02/27/2025 for shock and acute hypoxic respiratory failure. 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 Patient's chest x-ray today showed no change net balance -2kg Echo pending read Bumex drip Daily weights #Hx of A-fib Patient does have a history of A-fib On metoprolol succinate 100 mg daily at home Not on any anticoagulation [id number] score of 3 points indicating 3.2% risk of stroke per year Has bled score of 0 Off Amio drip, started PO amiodarone 200 mg qday Consider anticoagulation prior to discharge Echo pending Respiratory: #Acute hypoxic respiratory failure #Community-acquired pneumonia Patient was intubated on 02/27/2025 Will continue to wean down O2 Will get daily ABGs and chest x-rays Discontinue Zosyn and vancomycin, will change to azithromycin and Rocephin Cocci negative Renal: #KENIA #Lactic acidosis Creatinine increasing to 3.1 today Will continue Bumex drip 1 mg Avoid nephrotoxic agent Renally dose medication #Hyperkalemia Patient potassium 5.4 again today Will continue to monitor kayexalate x1 GI: #Transaminitis #Hyperbilirubinemia Could be due to congestive hepatopathy Will continue to monitor on daily CMP's Endo: #Morbid obesity Patient has a BMI of 79.5 Heme: #Leukocytosis Could be reactive vs infecious WBC mildly increased today to 15.5 ID: #Community-acquired pneumonia Blood cultures ordered Cocci negative Discontinue vancomycin and Zosyn, will switch to azithromycin and Rocephin Hospital Maintenance: Diet: N.p.o. DVT ppx: Lovenox 40 mg q12 hr GI ppx: protonix IV lines: PIV [place]: Pure wick Code status: Full code Dispo: ICU for shock and acute hypoxic respiratory failure. Case disclosed with Attending Dr. Hans Cornejo PGY1 Attending Provider Attestation/Addendum pt seen and examined, plan d/w resident team. in brief this is a 64yo M admitted for resp failure and currently intubated. he is felt to have a degree of heart failure and has been on bumex gtt. unable to eval UOP as unable to place chacno or measure urine. he is on no sedation and doing well on the vent. PEEP decreased and FiO2 needs decreasing as well. Has a degree of KENIA which is felt to be related to heart failure as well and will cont with diuresis. minimal elevation in LFTs and ? BANERJEE v congestive hepatopathy. case d/w ICU team labs, imaging, records reviewed ~40ccmin required for eval, exam, review intervention, discussion and formulation of POC for this critically ill pt with acute resp failure on MV at high risk for further and ongoing decompensation.
[2025-03-01] MEDS: cefTRIAXone/D5w 1gm IV premix 1 GM/50 ML BAG IV (10:58)
[2025-03-01] MEDS: AZITHROMYCIN INJ 500 MG in SODIUM CHLORIDE 0.9% 250 ML 250 ML 250 MG IV (10:58)
[2025-03-01] MEDS: SOD POLYSTYRENE SULFON SUSP 15 GM/60 ML BTL 30 GM PO (10:58)
[2025-03-01 12:40] LABS: Lactate (Lactic Acid) 4.9 mMol/L (0.4-2.0)
[2025-03-01 12:42] LABS: Cocci Serology, IgG Negative (Negative)
[2025-03-01 13:10] LABS: Reflex Lactate? Y
[2025-03-01 15:09] LABS: Base Excess 3 (-3-3); HCO3 28 mEq/L (20-26); Inspired Oxygen, FIO2 45 %; O2 Saturation 85 % (91-98); PCO2 45 mmHg (32.0-48.0); pH, Arterial 7.41 (7.35-7.45)
[2025-03-01 15:13] LABS: Allen Test Performed/OK; PO2 53 mmHg (83-108); Puncture Site Right Brachial
[2025-03-01 15:32] LABS: Reflex Lactate? Y
[2025-03-01] MEDS: DEXMEDETOMIDINE 37.02 MCG IV (18:15)
[2025-03-01] MEDS: METOPROLOL TARTRATE INJ 1 MG/ML AMP 5 ML 5 MG IVP (18:41)
--- NOTE | 2025-03-01 19:30 | XR_ITS ---
Examination: AP chest single view Technique one AP portable semiupright chest single view Exam date and time: March 01, 2025 1925 hrs. Comparison March 01, 2025 Indications: Difficulty breathing this week, hypoxic respiratory failure pneumonia heart failure on earlier chest imaging Findings: The film is underpenetrated which does not allow visualization of the orogastric tube Enlarged cardiac contour with prominent vascular congestion, edema and/or pneumonia in the lungs Moderate osteopenia Impression: Recommend abdomen film follow-up to assess orogastric tube position
--- NOTE | 2025-03-01 21:38 | XR_ITS ---
Examination: Abdomen AP single view Technique: AP portable supine abdomen, single view Exam date and time: March 01, 2025 2151 hrs. Indications: Post orogastric tube placement Findings: Orogastric tube in stomach No free air Impression: Advance the orogastric tube 5 cm
[2025-03-02] VITALS (37 sets, daily range): BP systolic 85–145; BP diastolic 58–104; PULSE 89–134; RESP 27–48; TEMP 36.2–37; O2SAT 89–98; BMI 85.3
--- NOTE | 2025-03-02 00:09 | XR_ITS ---
Examination: Abdomen AP single view Technique: AP portable supine abdomen, single view Exam date and time: March 02, 2025 0034 hrs. Indications: Status post orogastric tube placement Findings: Orogastric tube projects in stomach No free air Impression: Orogastric tube projects in stomach
[2025-03-02] MEDS: DEXMEDETOMIDINE 12.34 MCG IV ×2 (00:39→17:55)
[2025-03-02] MEDS: DEXMEDETOMIDINE 24.68 MCG IV ×5 (01:39→22:36)
[2025-03-02] MEDS: BUMETANIDE INJ 20 MG in CONTAINER,EMPTY 50 ML 1 BAG 8 MG IV ×3 (02:26→23:36)
--- NOTE | 2025-03-02 03:56 | PC.RT ---
ETT placement re-verified due to Pt pulling on ETT. ETT resecured with [place] Fast Tube lynn. ETT landmark noted to be 25cm @ Teeth/Gum.
--- NOTE | 2025-03-02 04:09 | XR_ITS ---
Examination: AP chest single view Technique one AP portable upright chest single view Exam date and time: March 02, 2025 0412 hrs. Indications: Hypoxic respiratory failure, shortness of breath this week Findings: Rums-sz-uuikzgiu chronic heart failure Bibasilar pneumonia The film is underpenetrated to assess the orogastric tube Endotracheal tube tip 4.3 cm above nunu Impression: [id number] heart failure pattern Bibasilar pneumonia remains
--- NOTE | 2025-03-02 04:16 | PC.NURSE ---
pt seen attempting to pull out ETT. was pulled less than half way and while attempting to remove patients hands, ETT was pushed back in. restraints and cxr ordered.
[2025-03-02 04:35] LABS: Base Excess 5 (-3-3); HCO3 29 mEq/L (20-26); Inspired Oxygen, FIO2 50 %; O2 Saturation 92 % (91-98); PCO2 42 mmHg (32.0-48.0); PO2 66 mmHg (83-108); pH, Arterial 7.45 (7.35-7.45)
[2025-03-02 04:36] LABS: Allen Test Performed/OK; Puncture Site Right Radial
--- NOTE | 2025-03-02 04:55 | PC.RT ---
ABG RESULTS GIVEN TO DR. OROZCO. NO CHANGES ON VENT AT THIS TIME. RN AWARE.
[2025-03-02 05:46] LABS: Basophils % (Auto) 0 % (0-2.5); Eosinophils % (Auto) 0 % (0-10); Hematocrit 40.1 % (41.0-53.0); Hemoglobin 13.6 g/dL (13.5-16.0); Immature Granulocytes % (Auto) 1 % (0-0); Immature Granulocytes Auto 0.15 Thou/mm3 (0.00-0.00); Lymphocytes # (Auto) 0.6 Thou/mm3 (1.0-4.8); Lymphocytes % (Auto) 5 % (10-50); Mean Corpuscular HGB Conc 33.9 g/dl (31.0-37.0); Mean Corpuscular Hemoglobin 29.1 pg (25.0-35.0); Mean Corpuscular Volume 86 fL (80-100); Monocytes # (Auto) 1.6 Thou/mm3 (0.0-0.8); Monocytes % (Auto) 12 % (0-12); Neutrophils # (Auto) 10.9 Thou/mm3 (1.8-7.7); Neutrophils % (Auto) 82 % (37-80); Nucleated Red Blood Cell % 0 /100 WBC (0); Platelet Count 174 Thou/mm3 (140-440); RDW Standard Deviation 43.2 fL (35.1-43.9); Red Blood Count 4.68 Miln/mm3 (4.50-5.90); White Blood Count 13.3 Thou/mm3 (3.8-10.6)
--- NOTE | 2025-03-02 06:00 | XR_ITS ---
Examination: AP chest single view Technique: AP portable upright chest single view Exam date and time: March 02, 2025 0133 hrs. Comparison March 02, 2025 Indications: Hypoxic respiratory failure. Findings: The film is underpenetrated Moderate enlargement cardiac contour with prominent vascular congestion Bibasilar pneumonia The endotracheal tube projects 4.5 cm above the nunu Impression: [id number] heart failure Significant bibasilar pneumonia
[2025-03-02 06:16] LABS: Alanine Aminotransferase 80 U/L (10-49); Albumin/Globulin Ratio 1.3 (1.2-2.2); Alkaline Phosphatase 107 U/L (46-116); Anion Gap 10 (7-16); Aspartate Amino Transferase 95 U/L (0-34); BUN/Creatinine Ratio 18 Ratio (12-20); Bilirubin,Total 0.8 mg/dL (0.3-1.2); Blood Urea Nitrogen 49 mg/dL (9-23); Calcium (Corrected) 8.8 mg/dL (8.5-10.1); Carbon Dioxide 25.7 mMol/L (20.0-31.0); Chloride 106 mMol/L (98-107); Creatinine (Component) 2.8 mg/dL (0.6-1.3); Globulin 2.3 gm/dL (2.3-3.5); Glucose 192 mg/dL (74-106); Osmolality,Calculated 301 (275-295); Potassium 4.7 mMol/L (3.4-5.1); Sodium 142 mMol/L (136-145); Total Protein 5.3 gm/dL (5.7-8.2); Vancomycin,Random 17.2 mcg/mL; eGFR 24 See Note
[2025-03-02] MEDS: DEXMEDETOMIDINE 37.02 MCG IV (06:59)
[2025-03-02] MEDS: AZITHROMYCIN INJ 500 MG in SODIUM CHLORIDE 0.9% 250 ML 250 ML 250 MG IV (08:47)
[2025-03-02] MEDS: cefTRIAXone/D5w 1gm IV premix 1 GM/50 ML BAG IV (08:48)
[2025-03-02] MEDS: AMIODARONE HCL 200 MG TABLET PO (08:48)
[2025-03-02] MEDS: ENOXAPARIN SOD INJ 40 MG/0.4 ML SYRINGE SC ×2 (08:48→20:41)
[2025-03-02] MEDS: PANTOPRAZOLE INJ 40 MG VIAL IV (08:48)
--- NOTE | 2025-03-02 08:49 | PD.INTPROG ---
Documentation for date of: 03/02/25 Subjective Subjective Interval history: This 64-year-old male admitted yesterday from the ER for acute hypoxic respiratory failure. The patient has super morbid obesity with a BMI of 85. He is felt to have underlying heart failure with question of possible pneumonia. There were no acute overnight events. Unable to insert Fuller to monitor I's and O's. Unclear how much urine he is put out after the diuretic. There has been a slight decrease in his FiO2 requirements overnight from 90 to 75%. He remains with a low-grade temp with a Tmax of 100.4. 03/02- no acute overnight events, yesterday evening was tachy to the 140s 150s and trialled on precedex -> no improvement and given a dose of metoprolol with improvement in HR. pt easily arousable and follows commands Critical Care Note Critical care time (min.): 41 Exam Vital Signs Temp Pulse Resp BP Pulse Ox O2 Del Method O2 Flow Rate 98.3 F 104 H 28 H 116/67 92 L Mechanical Ventilation 70 03/02/25 04:01 03/02/25 06:24 03/01/25 09:00 03/02/25 06:24 03/02/25 06:24 03/01/25 04:00 02/27/25 13:00 FiO2 50 03/02/25 06:24 Narrative Exam Gen- NAD, AAOx3, follows commands, morbidly obese HEENT- NC/AT, mucosa hydrated, sclera anicteric, ETT/OGT in place Chest- LCTAB, HRRR, diminished due to body habitus Abd- s/nt/bs+, edema of pannus Ext- edema b/l LE, pulses palp, no clubbing, no mottling, moves all 4 Vent PSV Drips precedex Physical Exam Completion Physical Exam Complete?: Yes 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 03/03/25 07:22 03/03/25 07:22 Labs: Laboratory Results - last 24 hr 02/27/25 03/01/25 03/01/25 19:09 09:40 12:10 WBC RBC Hgb Hct MCV MCH MCHC RDW Std Deviation Plt Count Neut % (Auto) Lymph % (Auto) [place] % (Auto) Eos % (Auto) Baso % (Auto) Neut # (Auto) Lymph # (Auto) [place] # (Auto) Eos # (Auto) Baso # (Auto) Immature Gran # (Auto) Absolute Nucleated RBC Immature Gran % Nucleated RBC % Puncture Site ABG pH ABG pCO2 ABG pO2 ABG HCO3 ABG O2 Saturation ABG Base Excess Oxygen Liter Flow FiO2 Sodium Potassium Chloride Carbon Dioxide Anion Gap BUN Creatinine Estim Creat Clear Calc eGFR BUN/Creatinine Ratio Glucose Calculated Osmolality Lactic Acid 3.1 H 4.9 H* Calcium Corrected Calcium Total Bilirubin AST ALT Alkaline Phosphatase Total Protein Albumin Globulin Albumin/Globulin Ratio Random Vancomycin Coccidioides IgG Ab Negative 03/01/25 03/01/25 03/02/25 13:15 14:52 04:25 WBC RBC Hgb Hct MCV MCH MCHC RDW Std Deviation Plt Count Neut % (Auto) Lymph % (Auto) [place] % (Auto) Eos % (Auto) Baso % (Auto) Neut # (Auto) Lymph # (Auto) [place] # (Auto) Eos # (Auto) Baso # (Auto) Immature Gran # (Auto) Absolute Nucleated RBC Immature Gran % Nucleated RBC % Puncture Site Cancelled Right Brachial Right Radial ABG pH Cancelled 7.41 7.45 ABG pCO2 Cancelled 45 42 ABG pO2 Cancelled 53 L* 66 L ABG HCO3 Cancelled 28 H 29 H ABG O2 Saturation Cancelled 85 L 92 ABG Base Excess Cancelled 3 5 H Oxygen Liter Flow Cancelled FiO2 Cancelled 45 50 Sodium Potassium Chloride Carbon Dioxide Anion Gap BUN Creatinine Estim Creat Clear Calc eGFR BUN/Creatinine Ratio Glucose Calculated Osmolality Lactic Acid Calcium Corrected Calcium Total Bilirubin AST ALT Alkaline Phosphatase Total Protein Albumin Globulin Albumin/Globulin Ratio Random Vancomycin Coccidioides IgG Ab 03/02/25 04:27 WBC 13.3 H RBC 4.68 Hgb 13.6 Hct 40.1 L MCV 86 MCH 29.1 MCHC 33.9 RDW Std Deviation 43.2 Plt Count 174 D Neut % (Auto) 82 H Lymph % (Auto) 5 L [place] % (Auto) 12 Eos % (Auto) 0 Baso % (Auto) 0 Neut # (Auto) 10.9 H Lymph # (Auto) 0.6 L [place] # (Auto) 1.6 H Eos # (Auto) 0.0 Baso # (Auto) 0.0 Immature Gran # (Auto) 0.15 H Absolute Nucleated RBC 0.00 Immature Gran % 1 H Nucleated RBC % 0 Puncture Site ABG pH ABG pCO2 ABG pO2 ABG HCO3 ABG O2 Saturation ABG Base Excess Oxygen Liter Flow FiO2 Sodium 142 Potassium 4.7 D Chloride 106 Carbon Dioxide 25.7 Anion Gap 10 BUN 49 H Creatinine 2.8 H Estim Creat Clear Calc 51.0 L eGFR 24 L BUN/Creatinine Ratio 18 Glucose 192 H Calculated Osmolality 301 H Lactic Acid Calcium 8.0 L Corrected Calcium 8.8 Total Bilirubin 0.8 AST 95 H ALT 80 H Alkaline Phosphatase 107 Total Protein 5.3 L Albumin 3.0 L Globulin 2.3 Albumin/Globulin Ratio 1.3 Random Vancomycin 17.2 Coccidioides IgG Ab Assessment & Plan Additional Assessment Additional Assessment: In summary this is a 64yo M 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 - transitioned to PSV today 08/23 /45% Pulmonary edema-will diurese as able - hard to eval UOP Pneumonia-at this point in time it is felt that most the changes on chest x-ray are consistent with pulmonary edema however given his presentation there is possibility for an aspiration event as well. Cultures are pending. He is currently on antibiotics. Renal Hyperkalemia-resolved Acute kidney injury-avoid nephrotoxins as able, difficulty monitoring urinary output as unable to access the patient's urethra. - trended up to 3.1 and now down to 2.8 today - suspect due to CHF - cont with bumex gtt GI GI prophylaxis- PPI Transaminitis-starting to trend down from yesterday - acute hep panel is neg - May be related to a degree of hypoxia and hypotension versus hepatic congestion - trending down Endo Diabetes-sliding scale of insulin and fingersticks Heme Leukocytosis-trending down - improving DVT prophylaxis-Lovenox 40 every 12 ID Sepsis- meets criteria for SIRS with location being lungs, on abx, fu on cx Case discussed with ICU team and patient labs, imaging and records reviewed ~41cc min required for eval, exam, review, intervention, discussion formulation of plan of care for his critically ill patient with hypoxic respiratory failure intubated and on mechanical ventilation at high risk of further ongoing decompensation Provider Notation Provider Notation: Although this document has been carefully reviewed, there may still be some phonetic and other typographical errors. These errors are purely grammatical due to imperfections in the software program and should not be construed in any way to compromise the substance of the patient's medical care during this visit. Thank you for the opportunity and privilege in assisting you with this patient's care and management.
[2025-03-02] MEDS: METOPROLOL SUCCINATE XL 25 MG TABCR 50 MG PO ×2 (10:49→20:41)
--- NOTE | 2025-03-02 13:27 | PD.RESPRO ---
Documentation for date of: 03/02/25 Subjective Subjective Interval history: 64-year-old male with past medical history of DM2, hypertension, and A-fib was admitted to the ICU on 02/27/2025 after coming to the ED with complaints of altered mental status and shortness of breath. Patient was intubated in the ED therefore most of the history was taken from chart review and from the parents who are at bedside. Patient's parents stated that yesterday morning patient could not get up from his chair and then later that evening/night he started getting confused and was not making sense when he was seen. This morning EMS found the patient on the floor and he was saturating in the 70s even on high flow nasal cannula. Given his hypoxia patient was intubated in the ED. As per parents were at bedside they stated that prior to this patient was able to walk around, but that since yesterday morning he was unable to walk. On assessment patient was intubated, but was still able to answer yes or no questions. He was also able to follow commands. Patient spiked a fever while in the ED and he became hypotensive unresponsive to IV fluids therefore he was placed on vasopressors. 02/28/2025: Patient was seen examined at bedside this morning. Overnight patient did spike a fever of 100.4 and he had no measurable urine output. Patient placed on amio drip overnigth. He was also given Bumex 1 mg x 1 overnight to see if he had better urine output, but none was measured. Today's patient's chest x-ray this looks like it is improving and he did have wet pants and some urine in the pure wick catheter. Will start patient on Bumex drip at 1 mg and will monitor patient's daily weights. Patient was on very low-dose of Levophed therefore we will start patient on midodrine 10 mg every 6 hours and wean off Levophed entirely. Patient is nasogastric tube was not visualized had x-ray, but on auscultation air was audible in the stomach when hand was placed through the nasogastric tube. Will discontinue patient's vancomycin and Zosyn if his MRSA is negative and will transition to azithromycin and Rocephin. 03/01/2025: Patient seen and examined at bedside this morning. Overnight patient went into A-fib with RVR and he finishes bolus of amiodarone. Patient had a documented urine output of 150, but that she states 1 were very wet. His Bumex drip finished overnight and they were not able to start more Bumex drip as there was not available in the pharmacy overnight. Patient's weight did go down from 249 to 247 kg. Blood cultures have been negative in 48 hours and MRSA nares negative. Will discontinue vancomycin and Zosyn and will start azithromycin and Rocephin. Patient's ventilator requirements have been unchanged, but has been saturating in the 94% therefore we will try and wean down on oxygen requirements. His blood pressure has been stable off Levophed and only on midodrine. His kidney function has been worsening, but expect improvement with more diuresis. Started Amiodarone 200mg qday. 03/02/2025: No overnight events, todays weight 246, we will continue bumex drip. NIF today as -12, we will re-evaluate tomorrow to attempt extubation. Midodrine decreased to 5 q6hr Exam Vital Signs Temp Pulse Resp BP Pulse Ox O2 Del Method O2 Flow Rate 98.3 F 101 H 28 H 107/67 93 L Mechanical Ventilation 70 03/02/25 04:01 03/02/25 10:49 03/01/25 09:00 03/02/25 10:49 03/02/25 10:11 03/01/25 04:00 02/27/25 13:00 FiO2 450 03/02/25 10:11 Objective Labs 03/02/25 04:27 03/02/25 04:27 Labs: Laboratory Results - last 24 hr 03/01/25 03/01/25 03/02/25 13:15 14:52 04:25 WBC RBC Hgb Hct MCV MCH MCHC RDW Std Deviation Plt Count Neut % (Auto) Lymph % (Auto) [place]osh[place] % (Auto) Eos % (Auto) Baso % (Auto) Neut # (Auto) Lymph # (Auto) [place] # (Auto) Eos # (Auto) Baso # (Auto) Immature Gran # (Auto) Absolute Nucleated RBC Immature Gran % Nucleated RBC % Puncture Site Cancelled Right Brachial Right Radial ABG pH Cancelled 7.41 7.45 ABG pCO2 Cancelled 45 42 ABG pO2 Cancelled 53 L* 66 L ABG HCO3 Cancelled 28 H 29 H ABG O2 Saturation Cancelled 85 L 92 ABG Base Excess Cancelled 3 5 H Oxygen Liter Flow Cancelled FiO2 Cancelled 45 50 Sodium Potassium Chloride Carbon Dioxide Anion Gap BUN Creatinine Estim Creat Clear Calc eGFR BUN/Creatinine Ratio Glucose Calculated Osmolality Calcium Corrected Calcium Total Bilirubin AST ALT Alkaline Phosphatase Total Protein Albumin Globulin Albumin/Globulin Ratio Random Vancomycin 03/02/25 04:27 WBC 13.3 H RBC 4.68 Hgb 13.6 Hct 40.1 L MCV 86 MCH 29.1 MCHC 33.9 RDW Std Deviation 43.2 Plt Count 174 D Neut % (Auto) 82 H Lymph % (Auto) 5 L [place] % (Auto) 12 Eos % (Auto) 0 Baso % (Auto) 0 Neut # (Auto) 10.9 H Lymph # (Auto) 0.6 L [place] # (Auto) 1.6 H Eos # (Auto) 0.0 Baso # (Auto) 0.0 Immature Gran # (Auto) 0.15 H Absolute Nucleated RBC 0.00 Immature Gran % 1 H Nucleated RBC % 0 Puncture Site ABG pH ABG pCO2 ABG pO2 ABG HCO3 ABG O2 Saturation ABG Base Excess Oxygen Liter Flow FiO2 Sodium 142 Potassium 4.7 D Chloride 106 Carbon Dioxide 25.7 Anion Gap 10 BUN 49 H Creatinine 2.8 H Estim Creat Clear Calc 51.0 L eGFR 24 L BUN/Creatinine Ratio 18 Glucose 192 H Calculated Osmolality 301 H Calcium 8.0 L Corrected Calcium 8.8 Total Bilirubin 0.8 AST 95 H ALT 80 H Alkaline Phosphatase 107 Total Protein 5.3 L Albumin 3.0 L Globulin 2.3 Albumin/Globulin Ratio 1.3 Random Vancomycin 17.2 ABG Interpretation ABG results: 02/27/25 02/28/25 03/01/25 06:55 04:57 04:39 ABG pH 7.27 L 7.37 D 7.41 ABG pCO2 57 H 48 44 ABG pO2 101 78 L D 69 L ABG HCO3 26 28 H 28 H ABG O2 Saturation 98 95 93 ABG Base Excess -2 2 3 03/01/25 03/01/25 03/02/25 13:15 14:52 04:25 ABG pH Cancelled 7.41 7.45 ABG pCO2 Cancelled 45 42 ABG pO2 Cancelled 53 L* 66 L ABG HCO3 Cancelled 28 H 29 H ABG O2 Saturation Cancelled 85 L 92 ABG Base Excess Cancelled 3 5 H Quality Measures Quality Measures sepsis Current suspected stage: sepsis Possible source: pulmonary Blood cultures ordered: completed in ED Antibiotic ordered: Yes Advance care planning discussed with:: patient Assessment & Plan Assessment Current Active Medications: Generic Name Dose Route Start Last Admin Trade Name Freq PRN Reason Stop Dose Admin Acetaminophen 650 mg 02/27/25 09:24 Acetaminophen 325 Mg Tablet PO 03/29/25 09:23 Q4HR PRN PAIN SCALE 1-3 (mild Acetaminophen 650 mg 02/27/25 09:24 Acetaminophen Supp 650 Mg Supp DC 03/29/25 09:23 Q4HR PRN PAIN SCALE 1-3 (mild Al Hydrox/Mg Hydrox/Simethicone 30 ml 02/27/25 09:24 Mg Hyd/Al Hyd/Virgilio (Maalox Reg) Susp 30 Ml Udc PO 03/29/25 09:23 Q4HR PRN Heartburn or Upset Stomach Amiodarone HCl 200 mg 03/01/25 09:00 03/02/25 08:48 Amiodarone Hcl 200 Mg Tablet PO 03/31/25 08:59 200 mg QDAY KOURTNEY Administration Enoxaparin Sodium 40 mg 02/27/25 21:00 03/02/25 08:48 Enoxaparin Sod Inj 40 Mg/0.4 Ml Syringe SC 03/13/25 20:59 40 mg Q12HR KOURTNEY Administration Norepinephrine/Dextrose 8 mg in 250 mls @ 21.577 mls/hr 02/27/25 06:58 02/28/25 13:49 Levophed In D5w 8mg/250ml IV 03/29/25 06:57 0 mcg/kg/min .[id number] PRN 0 mls/hr PER PROTOCOL Titration Protocol 0.05 MCG/KG/MIN Azithromycin 500 mg/ Sodium 250 mls @ 250 mls/hr 03/01/25 10:19 03/02/25 08:47 Chloride IV 03/03/25 10:18 250 mls/hr QDAY KOURTNEY Administration Ceftriaxone Sodium/Dextrose 1 gm in 50 mls @ 100 mls/hr 03/01/25 10:19 03/02/25 08:48 Rocephin/D5w 1gm Iv Premix IV 03/08/25 10:18 100 mls/hr QDAY KOURTNEY Administration Dexmedetomidine/Sodium Chloride 200 mcg in 50 mls @ 12.34 mls/hr 03/01/25 18:26 03/02/25 09:00 Precedex Ivpb IV 03/31/25 18:25 0 mcg/kg/hr .Q4H4M PRN 0 mls/hr Per PROTOCOL Titration Protocol 0.2 MCG/KG/HR Bumetanide 20 mg/ IV 80 mls @ 8 mls/hr 03/02/25 12:52 Miscellaneous Supplies IV 03/03/25 08:51 .Q10H KOURTNEY 2 MG/HR Magnesium Hydroxide 30 ml 02/27/25 09:24 Milk Of Magnesia Susp 30 Ml Udc PO 03/29/25 09:23 QDAY PRN CONSTIPATION Metoprolol Succinate 50 mg 03/02/25 09:30 03/02/25 10:49 Metoprolol Succinate Xl 25 Mg Tabcr PO 04/01/25 09:29 50 mg BID KOURTNEY Administration Midodrine 10 mg 02/28/25 12:00 03/02/25 05:52 Midodrine 5 Mg Tablet PO 03/30/25 11:59 Not Given Q6HR KOURTNEY Nitroglycerin 0.4 mg 02/27/25 09:24 Nitroglycerin 0.4 Mg Subl Btl #25 SL Q5MIN PRN CHEST PAIN Pantoprazole Sodium 40 mg 02/27/25 11:15 03/02/25 08:48 Pantoprazole Inj 40 Mg Vial IV 03/29/25 11:14 40 mg QDAY KOURTNEY Administration Plan 64-year-old male with past medical history of DM2, hypertension, and A-fib was admitted to the ICU on 02/27/2025 for shock and acute hypoxic respiratory failure. 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: #Shock, resolved Off levophed, on midodrine 10mg q6hr , decreased to 5 net balance -1kg today Patient's chest x-ray today seems unchanged from yesterday Echo pending read Will continue Bumex drip Daily weights #CHF Patient's chest x-ray today showed no change net balance -2kg Echo pending read Bumex drip Daily weights #Hx of A-fib Patient does have a history of A-fib On metoprolol succinate 100 mg daily at home Not on any anticoagulation [id number] score of 3 points indicating 3.2% risk of stroke per year Has bled score of 0 Off Amio drip, started PO amiodarone 200 mg qday Consider anticoagulation prior to discharge Echo pending Respiratory: #Acute hypoxic respiratory failure #Community-acquired pneumonia Patient was intubated on 02/27/2025 Will continue to wean down O2 Will get daily ABGs and chest x-rays Discontinue Zosyn and vancomycin, will change to azithromycin and Rocephin Cocci negative Renal: #KENIA #Lactic acidosis Creatinine increasing to 3.1 today Will continue Bumex drip 1 mg Avoid nephrotoxic agent Renally dose medication #Hyperkalemia Patient potassium 5.4 again today Will continue to monitor kayexalate x1 GI: #Transaminitis #Hyperbilirubinemia Could be due to congestive hepatopathy Will continue to monitor on daily CMP's Endo: #Morbid obesity Patient has a BMI of 79.5 Heme: #Leukocytosis Could be reactive vs infecious WBC mildly increased today to 15.5 ID: #Community-acquired pneumonia Blood cultures ordered Cocci negative Discontinue vancomycin and Zosyn, will switch to azithromycin and Rocephin Hospital Maintenance: Diet: N.p.o. DVT ppx: Lovenox 40 mg q12 hr GI ppx: protonix IV lines: PIV Chacon: Pure wick Code status: Full code Dispo: ICU for shock and acute hypoxic respiratory failure. Case disclosed with Attending Dr. Hans Fragoso MD PGY3 Attending Provider Attestation/Addendum pt seen and examined, plan d/w resident team. in brief this is a 64yo M admitted for resp failure and currently intubated. he is felt to have a degree of heart failure and has been on bumex gtt. unable to eval UOP as unable to place chacon or measure urine. he is on no sedation and doing well on the vent. PEEP decreased and FiO2 needs decreasing as well. Has a degree of KENIA which is felt to be related to heart failure as well and will cont with diuresis. minimal elevation in LFTs and ? BANERJEE v congestive hepatopathy. case d/w ICU team labs, imaging, records reviewed ~40ccmin required for eval, exam, review intervention, discussion and formulation of POC for this critically ill pt with acute resp failure on MV at high risk for further and ongoing decompensation.
[2025-03-02] MEDS: MIDODRINE 5 MG TABLET 10 MG PO (13:43)
[2025-03-02] MEDS: MIDODRINE 5 MG TABLET PO (17:56)
[2025-03-02] MEDS: DEXMEDETOMIDINE 86.38 MCG IV (19:00)
[2025-03-02] MEDS: DEXMEDETOMIDINE 74.04 MCG IV (19:45)
[2025-03-02] MEDS: DEXMEDETOMIDINE 49.36 MCG IV (20:40)
[2025-03-03] VITALS (34 sets, daily range): BP systolic 90–140; BP diastolic 64–104; PULSE 88–143; RESP 23–46; TEMP 36.2–37.2; O2SAT 89–96; BMI 83.8
[2025-03-03] MEDS: DEXMEDETOMIDINE 24.68 MCG IV (00:43)
[2025-03-03 05:10] LABS: Base Excess 5 (-3-3); HCO3 30 mEq/L (20-26); Inspired Oxygen, FIO2 90 %; O2 Saturation 94 % (91-98); PCO2 43 mmHg (32.0-48.0); PO2 72 mmHg (83-108); pH, Arterial 7.45 (7.35-7.45)
[2025-03-03 05:17] LABS: Allen Test Performed/OK; Puncture Site Left Radial
[2025-03-03] MEDS: MIDODRINE 5 MG TABLET PO (05:24)
--- NOTE | 2025-03-03 06:00 | XR_ITS ---
Examination: AP chest single view Technique: AP portable semiupright chest single view Exam date and time: March 03, 2025 0610 hrs. Comparison March 02, 2025 Indications: Respiratory failure, patient has been intubated, heart failure with pneumonia on earlier chest imaging Findings: Mild enlargement cardiac colon. Endotracheal tube tip 4.8 cm above nunu The orogastric tube is poorly visualized, the film is underpenetrated Extensive bilateral pneumonia and/or edema again depicted Impression: No change in extensive bilateral pneumonia, ARDS and/or edema
[2025-03-03 08:03] LABS: Basophils % (Auto) 0 % (0-2.5); Eosinophils % (Auto) 0 % (0-10); Immature Granulocytes % (Auto) 1 % (0-0); Immature Granulocytes Auto 0.11 Thou/mm3 (0.00-0.00); Lymphocytes # (Auto) 0.7 Thou/mm3 (1.0-4.8); Lymphocytes % (Auto) 8 % (10-50); Mean Corpuscular HGB Conc 33.3 g/dl (31.0-37.0); Mean Corpuscular Hemoglobin 28.6 pg (25.0-35.0); Mean Corpuscular Volume 86 fL (80-100); Monocytes # (Auto) 1.4 Thou/mm3 (0.0-0.8); Monocytes % (Auto) 15 % (0-12); Neutrophils # (Auto) 7.1 Thou/mm3 (1.8-7.7); Neutrophils % (Auto) 75 % (37-80); Nucleated Red Blood Cell # 0.02 Thou/mm3 (0.00-0.00); Nucleated Red Blood Cell % 0 /100 WBC (0); Platelet Count 202 Thou/mm3 (140-440); RDW Standard Deviation 42.8 fL (35.1-43.9); Red Blood Count 4.54 Miln/mm3 (4.50-5.90); White Blood Count 9.4 Thou/mm3 (3.8-10.6)
[2025-03-03 08:05] LABS: Alanine Aminotransferase 64 U/L (10-49); Albumin, Serum 3.1 gm/dL (3.4-4.8); Albumin/Globulin Ratio 1.3 (1.2-2.2); Alkaline Phosphatase 108 U/L (46-116); Anion Gap 9 (7-16); Aspartate Amino Transferase 82 U/L (0-34); BUN/Creatinine Ratio 25 Ratio (12-20); Blood Urea Nitrogen 59 mg/dL (9-23); Calcium 8.3 mg/dL (8.3-10.6); Carbon Dioxide 29.1 mMol/L (20.0-31.0); Chloride 107 mMol/L (98-107); Creatinine (Component) 2.4 mg/dL (0.6-1.3); Estimated Creatinine Clearance 58.7 mL/min (>60); Globulin 2.4 gm/dL (2.3-3.5); Glucose 255 mg/dL (74-106); Osmolality,Calculated 314 (275-295); Potassium 3.5 mMol/L (3.4-5.1); Sodium 145 mMol/L (136-145); Total Protein 5.5 gm/dL (5.7-8.2); eGFR 29 See Note
--- NOTE | 2025-03-03 08:50 | PD.INTPROG ---
Documentation for date of: 03/03/25 Subjective Subjective Interval history: This 64-year-old male admitted yesterday from the ER for acute hypoxic respiratory failure. The patient has super morbid obesity with a BMI of 85. He is felt to have underlying heart failure with question of possible pneumonia. There were no acute overnight events. Unable to insert Chacon to monitor I's and O's. Unclear how much urine he is put out after the diuretic. There has been a slight decrease in his FiO2 requirements overnight from 90 to 75%. He remains with a low-grade temp with a Tmax of 100.4. 03/02- no acute overnight events, yesterday evening was tachy to the 140s 150s and trialled on precedex -> no improvement and given a dose of metoprolol with improvement in HR. pt easily arousable and follows commands 03/03- overnight FiO2 was increased to 90%, had had what appears to be good UOP though difficult to measure due to inability to place chacon. has had a weight change from 249kg to 242 kg, afebrile Critical Care Note Critical care time (min.): 44 Exam Vital Signs Temp Pulse Resp BP Pulse Ox O2 Del Method O2 Flow Rate 97.5 F 99 28 H 117/78 96 Mechanical Ventilation 70 03/03/25 04:00 03/03/25 06:15 03/01/25 09:00 03/03/25 06:15 03/03/25 06:15 03/03/25 00:00 02/27/25 13:00 FiO2 90 03/03/25 06:15 Narrative Exam Gen- NAD, follows commands, morbid obesity HEENT- NC/AT, mucosa hydrated, sclera anicteric, ETT/OGT in place Chest- LCTAB, HRRR, no increase in WOB Abd- obese, s/nt/bs+, edema of pannus Ext- edema b/l LE, pulses palp, no mottling, no clubbing Vent PSV 10/10/50% Drips precedex Physical Exam Completion Physical Exam Complete?: Yes 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 03/03/25 07:22 03/03/25 07:22 Labs: Laboratory Results - last 24 hr 03/03/25 03/03/25 04:40 07:22 WBC 9.4 RBC 4.54 Hgb 13.0 L Hct 39.0 L MCV 86 MCH 28.6 MCHC 33.3 RDW Std Deviation 42.8 Plt Count 202 Neut % (Auto) 75 Lymph % (Auto) 8 L [place] % (Auto) 15 H Eos % (Auto) 0 Baso % (Auto) 0 Neut # (Auto) 7.1 Lymph # (Auto) 0.7 L [place] # (Auto) 1.4 H Eos # (Auto) 0.0 Baso # (Auto) 0.0 Immature Gran # (Auto) 0.11 H Absolute Nucleated RBC 0.02 H Immature Gran % 1 H Nucleated RBC % 0 Puncture Site Left Radial ABG pH 7.45 ABG pCO2 43 ABG pO2 72 L ABG HCO3 30 H ABG O2 Saturation 94 ABG Base Excess 5 H FiO2 90 Sodium 145 Potassium 3.5 D Chloride 107 Carbon Dioxide 29.1 Anion Gap 9 BUN 59 H Creatinine 2.4 H Estim Creat Clear Calc 58.7 L eGFR 29 L BUN/Creatinine Ratio 25 H Glucose 255 H D Calculated Osmolality 314 H Calcium 8.3 Corrected Calcium 9.0 Total Bilirubin 1.0 AST 82 H ALT 64 H Alkaline Phosphatase 108 Total Protein 5.5 L Albumin 3.1 L Globulin 2.4 Albumin/Globulin Ratio 1.3 Assessment & Plan Additional Assessment Additional Assessment: In summary this is a 64yo M 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 - did not tolerate ween yesterday - NIF found to be 12 yesterday and will trial again today Pulmonary edema- improving - needs more diuresis Pneumonia- on abx x 7 days Renal HypoK- give 40meq of K today Acute kidney injury-avoid nephrotoxins as able, difficulty monitoring urinary output as unable to access the patient's urethra. - suspect due to CHF - cont with bumex gtt - trending down GI GI prophylaxis- PPI Transaminitis- improving - acute hep panel is neg - May be related to a degree of hypoxia and hypotension versus hepatic congestion - trending down Endo Diabetes-sliding scale of insulin and fingersticks Heme Leukocytosis- resolved DVT prophylaxis-Lovenox 40 every 12 ID Sepsis- meets criteria for SIRS with location being lungs, on abx, fu on cx - Cx NTD Case discussed with ICU team and patient labs, imaging and records reviewed ~44cc min required for eval, exam, review, intervention, discussion formulation of plan of care for his critically ill patient with hypoxic respiratory failure intubated and on mechanical ventilation at high risk of further ongoing decompensation Provider Notation Provider Notation: Although this document has been carefully reviewed, there may still be some phonetic and other typographical errors. These errors are purely grammatical due to imperfections in the software program and should not be construed in any way to compromise the substance of the patient's medical care during this visit. Thank you for the opportunity and privilege in assisting you with this patient's care and management.
[2025-03-03] MEDS: ALBUMIN HUMAN 25% IVPB 12.5 GM/50 ML BTL IV (09:17)
[2025-03-03] MEDS: cefTRIAXone/D5w 1gm IV premix 1 GM/50 ML BAG IV (09:17)
[2025-03-03] MEDS: ENOXAPARIN SOD INJ 40 MG/0.4 ML SYRINGE SC ×2 (09:17→21:02)
[2025-03-03] MEDS: PANTOPRAZOLE INJ 40 MG VIAL IV (09:17)
[2025-03-03] MEDS: AMIODARONE HCL 200 MG TABLET PO (09:18)
[2025-03-03] MEDS: AZITHROMYCIN INJ 500 MG in SODIUM CHLORIDE 0.9% 250 ML 250 ML 250 MG IV (09:20)
[2025-03-03] MEDS: METOPROLOL SUCCINATE XL 25 MG TABCR 50 MG PO ×2 (09:21→14:49)
--- NOTE | 2025-03-03 09:46 | ESPR_ITS ---
Documentation for date of: 03/03/25 Subjective Subjective Interval history: 64-year-old male with past medical history of DM2, hypertension, and A-fib was admitted to the ICU on 02/27/2025 after coming to the ED with complaints of altered mental status and shortness of breath. Patient was intubated in the ED therefore most of the history was taken from chart review and from the parents who are at bedside. Patient's parents stated that yesterday morning patient could not get up from his chair and then later that evening/night he started getting confused and was not making sense when he was seen. This morning EMS found the patient on the floor and he was saturating in the 70s even on high flow nasal cannula. Given his hypoxia patient was intubated in the ED. As per parents were at bedside they stated that prior to this patient was able to walk around, but that since yesterday morning he was unable to walk. On assessment patient was intubated, but was still able to answer yes or no questions. He was also able to follow commands. Patient spiked a fever while in the ED and he became hypotensive unresponsive to IV fluids therefore he was placed on vasopressors. 02/28/2025: Patient was seen examined at bedside this morning. Overnight patient did spike a fever of 100.4 and he had no measurable urine output. Patient placed on amio drip overnigth. He was also given Bumex 1 mg x 1 overnight to see if he had better urine output, but none was measured. Today's patient's chest x-ray this looks like it is improving and he did have wet pants and some urine in the pure wick catheter. Will start patient on Bumex drip at 1 mg and will monitor patient's daily weights. Patient was on very low-dose of Levophed therefore we will start patient on midodrine 10 mg every 6 hours and wean off Levophed entirely. Patient is nasogastric tube was not visualized had x-ray, but on auscultation air was audible in the stomach when hand was placed through the nasogastric tube. Will discontinue patient's vancomycin and Zosyn if his MRSA is negative and will transition to azithromycin and Rocephin. 03/01/2025: Patient seen and examined at bedside this morning. Overnight patient went into A-fib with RVR and he finishes bolus of amiodarone. Patient had a documented urine output of 150, but that she states 1 were very wet. His Bumex drip finished overnight and they were not able to start more Bumex drip as there was not available in the pharmacy overnight. Patient's weight did go down from 249 to 247 kg. Blood cultures have been negative in 48 hours and MRSA nares negative. Will discontinue vancomycin and Zosyn and will start azithromycin and Rocephin. Patient's ventilator requirements have been unchanged, but has been saturating in the 94% therefore we will try and wean down on oxygen requirements. His blood pressure has been stable off Levophed and only on midodrine. His kidney function has been worsening, but expect improvement with more diuresis. Started Amiodarone 200mg qday. 03/02/2025: No overnight events, todays weight 246, we will continue bumex drip. NIF today as -12, we will re-evaluate tomorrow to attempt extubation. Midodrine decreased to 5 q6hr 03/03/2025: Patient was seen examined at bedside this morning. No acute overnight events. Patient was taken off the Precedex yesterday night. Today's weight is 242 kg. Succesfull extubation today, will transition to bipap. Exam Vital Signs Temp Pulse Resp BP Pulse Ox O2 Del Method O2 Flow Rate 97.5 F 116 H 28 H 95/70 96 Mechanical Ventilation 70 03/03/25 04:00 03/03/25 09:21 03/01/25 09:00 03/03/25 09:21 03/03/25 06:15 03/03/25 00:00 02/27/25 13:00 FiO2 90 03/03/25 06:15 Narrative Exam General: morbidly obese, able to follow commands, A/Ox3 Eyes: PERRL, EOMI. Anicteric, vision grossly intact. Ears: No ear pain, no ear discharge, Hearing grossly intact. Nose: No nasal discharge. Mouth/Throat: Moist mucous membranes, no redness, no lesions. Neck: Short neck non-tender, no cervical lymphadenopathy. Lungs: Clear BANG in upper lobes and decreased in Lower lobes. Cardio: Distant heart sounds likely due to body habitus, normal S1/S2, regular rhythm, no murmurs, no JVD Abdomen: Swollen lower abdomen still present improving, no palpable masses, peristalsis present, no guarding or rebound. Extremities: Symmetrical, no significant deformities, 2+ peripheral edema , non- tender, peripheral pulses presents. Skin: No rashes, no lesions, warm to touch, purplish discoloration on the right neck, nonpainful. Neuro: Able to follow commands, pupils reactive to light, able to move all extremities today. Objective Labs 03/03/25 07:22 03/03/25 07:22 Labs: Laboratory Results - last 24 hr 03/03/25 03/03/25 04:40 07:22 WBC 9.4 RBC 4.54 Hgb 13.0 L Hct 39.0 L MCV 86 MCH 28.6 MCHC 33.3 RDW Std Deviation 42.8 Plt Count 202 Neut % (Auto) 75 Lymph % (Auto) 8 L [place] % (Auto) 15 H Eos % (Auto) 0 Baso % (Auto) 0 Neut # (Auto) 7.1 Lymph # (Auto) 0.7 L [place] # (Auto) 1.4 H Eos # (Auto) 0.0 Baso # (Auto) 0.0 Immature Gran # (Auto) 0.11 H Absolute Nucleated RBC 0.02 H Immature Gran % 1 H Nucleated RBC % 0 Puncture Site Left Radial ABG pH 7.45 ABG pCO2 43 ABG pO2 72 L ABG HCO3 30 H ABG O2 Saturation 94 ABG Base Excess 5 H FiO2 90 Sodium 145 Potassium 3.5 D Chloride 107 Carbon Dioxide 29.1 Anion Gap 9 BUN 59 H Creatinine 2.4 H Estim Creat Clear Calc 58.7 L eGFR 29 L BUN/Creatinine Ratio 25 H Glucose 255 H D Calculated Osmolality 314 H Calcium 8.3 Corrected Calcium 9.0 Total Bilirubin 1.0 AST 82 H ALT 64 H Alkaline Phosphatase 108 Total Protein 5.5 L Albumin 3.1 L Globulin 2.4 Albumin/Globulin Ratio 1.3 ABG Interpretation ABG results: 02/27/25 02/28/25 03/01/25 06:55 04:57 04:39 ABG pH 7.27 L 7.37 D 7.41 ABG pCO2 57 H 48 44 ABG pO2 101 78 L D 69 L ABG HCO3 26 28 H 28 H ABG O2 Saturation 98 95 93 ABG Base Excess -2 2 3 03/01/25 03/01/25 03/02/25 13:15 14:52 04:25 ABG pH Cancelled 7.41 7.45 ABG pCO2 Cancelled 45 42 ABG pO2 Cancelled 53 L* 66 L ABG HCO3 Cancelled 28 H 29 H ABG O2 Saturation Cancelled 85 L 92 ABG Base Excess Cancelled 3 5 H 03/03/25 04:40 ABG pH 7.45 ABG pCO2 43 ABG pO2 72 L ABG HCO3 30 H ABG O2 Saturation 94 ABG Base Excess 5 H Quality Measures Quality Measures sepsis Current suspected stage: ruled out Possible source: pulmonary Blood cultures ordered: completed in ED Antibiotic ordered: Yes Advance care planning discussed with:: patient Assessment & Plan Assessment Current Active Medications: Generic Name Dose Route Start Last Admin Trade Name Freq PRN Reason Stop Dose Admin Acetaminophen 650 mg 02/27/25 09:24 Acetaminophen 325 Mg Tablet PO 03/29/25 09:23 Q4HR PRN PAIN SCALE 1-3 (mild Acetaminophen 650 mg 02/27/25 09:24 Acetaminophen Supp 650 Mg Supp MA 03/29/25 09:23 Q4HR PRN PAIN SCALE 1-3 (mild Al Hydrox/Mg Hydrox/Simethicone 30 ml 02/27/25 09:24 Mg Hyd/Al Hyd/Virgilio (Maalox Reg) Susp 30 Ml Udc PO 03/29/25 09:23 Q4HR PRN Heartburn or Upset Stomach Amiodarone HCl 200 mg 03/01/25 09:00 03/03/25 09:18 Amiodarone Hcl 200 Mg Tablet PO 03/31/25 08:59 200 mg QDAY KOURTNEY Administration Dextrose 25 ml 03/03/25 08:20 Dextrose 50%-Water Inj 50 Ml Syringe IV 04/02/25 08:19 Q15MIN PRN BG 50-70 responsive npo pt Dextrose 50 ml 03/03/25 08:20 Dextrose 50%-Water Inj 50 Ml Syringe IV 04/02/25 08:19 Q15MIN PRN BG <50 OR BG <70 & pt unresponsive Enoxaparin Sodium 40 mg 02/27/25 21:00 03/03/25 09:17 Enoxaparin Sod Inj 40 Mg/0.4 Ml Syringe SC 03/13/25 20:59 40 mg Q12HR KOURTNEY Administration Glucagon 1 mg 03/03/25 08:20 Glucagon Inj 1 Mg Vial IM Q15MIN PRN BG <70, and no IV access Norepinephrine/Dextrose 8 mg in 250 mls @ 21.577 mls/hr 02/27/25 06:58 02/28/25 13:49 Levophed In D5w 8mg/250ml IV 03/29/25 06:57 0 mcg/kg/min .[id number] PRN 0 mls/hr PER PROTOCOL Titration Protocol 0.05 MCG/KG/MIN Azithromycin 500 mg/ Sodium 250 mls @ 250 mls/hr 03/01/25 10:19 03/03/25 09:20 Chloride IV 03/03/25 10:18 250 mls/hr QDAY KOURTNEY Administration Ceftriaxone Sodium/Dextrose 1 gm in 50 mls @ 100 mls/hr 03/01/25 10:19 03/03/25 09:17 Rocephin/D5w 1gm Iv Premix IV 03/04/25 10:18 100 mls/hr QDAY KOURTNEY Administration Dexmedetomidine/Sodium Chloride 200 mcg in 50 mls @ 12.34 mls/hr 03/01/25 18:26 03/03/25 02:00 Precedex Ivpb IV 03/31/25 18:25 0 mcg/kg/hr .Q4H4M PRN 0 mls/hr Per PROTOCOL Titration Protocol 0.2 MCG/KG/HR Albumin Human 12.5 gm in 50 mls @ 50 mls/hr 03/03/25 08:48 03/03/25 09:17 Albuminar-25 Ivpb IV 03/03/25 09:47 50 mls/hr X1 ONE Administration Bumetanide 20 mg/ IV 80 mls @ 8 mls/hr 03/03/25 09:16 Miscellaneous Supplies IV 03/04/25 05:15 .Q10H KOURTNEY 2 MG/HR Potassium Chloride 10 meq in 100 mls @ 100 mls/hr 03/03/25 09:22 Kcl Ivpb IV 03/03/25 13:21 Q1H KOURTNEY Insulin Human Lispro 0 unit 03/03/25 11:30 Insulin Lispro (Admelog) 1 Unit/0.01 Ml Unit SC 04/02/25 11:29 AC KOURTNEY Protocol Magnesium Hydroxide 30 ml 02/27/25 09:24 Milk Of Magnesia Susp 30 Ml Udc PO 03/29/25 09:23 QDAY PRN CONSTIPATION Metoprolol Succinate 50 mg 04/19/25 09:30 03/03/25 09:21 Metoprolol Succinate Xl 25 Mg Tabcr PO 04/01/25 09:29 50 mg BID KOURTNEY Administration Midodrine 5 mg 03/02/25 18:00 03/03/25 05:24 Midodrine 5 Mg Tablet PO 04/01/25 17:59 5 mg Q6HR KOURTNEY Administration Nitroglycerin 0.4 mg 02/27/25 09:24 Nitroglycerin 0.4 Mg Subl Btl #25 SL Q5MIN PRN CHEST PAIN Pantoprazole Sodium 40 mg 02/27/25 11:15 03/03/25 09:17 Pantoprazole Inj 40 Mg Vial IV 03/29/25 11:14 40 mg QDAY KOURTNEY Administration Plan 64-year-old male with past medical history of DM2, hypertension, and A-fib was admitted to the ICU on 02/27/2025 for shock and acute hypoxic respiratory failure. 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 Will continue Bumex drip Daily weights #CHF Patient's chest x-ray today showed no change net balance -4kg Echo could not visualize all chambers and could not provide ejection fraction Bumex drip Daily weights #Hx of A-fib Patient does have a history of A-fib On metoprolol succinate 100 mg daily at home Not on any anticoagulation [id number] score of 3 points indicating 3.2% risk of stroke per year Has bled score of 0 Continue PO amiodarone 200 mg qday Continue metoprolol succinate 50 mg BID Consider anticoagulation prior to discharge Echo cannot visualize all chambers Respiratory: #Acute hypoxic respiratory failure #Community-acquired pneumonia Patient was intubated on 02/27/2025, extubated 03/03/2025 Bipap Continue azithromycin and Rocephin Cocci negative Renal: #KENIA, improving #Lactic acidosis Creatinine increasing to 2.4 today Will continue Bumex drip 2 mg Avoid nephrotoxic agent Renally dose medication #Hyperkalemia, resolved GI: #Transaminitis, improving #Hyperbilirubinemia, resolved Will continue to monitor on daily CMP's Endo: #Morbid obesity Patient has a BMI of 79.5 Heme: #Leukocytosis, resolved ID: #Community-acquired pneumonia Blood cultures negative Cocci negative Continue azithromycin (last day 03/03) and Rocephin (last day 03/06) Hospital Maintenance: Diet: tube feeds (held today in the setting of possible extubation) DVT ppx: Lovenox 40 mg q12 hr GI ppx: protonix IV lines: PIV Fuller: Pure wick Code status: Full code Dispo: ICU for shock and acute hypoxic respiratory failure. Case disclosed with Attending Dr. Hans Cornejo PGY1
[2025-03-03] MEDS: BUMETANIDE INJ 20 MG in CONTAINER,EMPTY 50 ML 1 BAG 8 MG IV ×2 (10:06→20:06)
[2025-03-03] MEDS: INSULIN LISPRO (AdmeLOG) 1 UNIT/0.01 ML UNIT SC ×2 (12:55→17:39)
[2025-03-03] MEDS: POTASSIUM CHL 10 mEq IVPB 10 MEQ/100 ML BAG 100 MEQ IV ×2 (12:55→14:48)
[2025-03-03 13:24] LABS: Anion Gap 9 (7-16); BUN/Creatinine Ratio 24 Ratio (12-20); Blood Urea Nitrogen 58 mg/dL (9-23); Calcium 8.4 mg/dL (8.3-10.6); Carbon Dioxide 29.5 mMol/L (20.0-31.0); Chloride 108 mMol/L (98-107); Creatinine (Component) 2.4 mg/dL (0.6-1.3); Estimated Creatinine Clearance 58.7 mL/min (>60); Glucose 235 mg/dL (74-106); Osmolality,Calculated 314 (275-295); Potassium 3.6 mMol/L (3.4-5.1); Sodium 146 mMol/L (136-145); eGFR 29 See Note
[2025-03-03] MEDS: POTASSIUM CHLORIDE 20 mEq TABCR PO (14:49)
[2025-03-03 17:03] LABS: Potassium 3.8 mMol/L (3.4-5.1)
--- NOTE | 2025-03-03 18:50 | ESPR_ITS ---
<Statement entered by Ermias Torre MD - 03/04/25 13:44> Patient is an ICU downgrade required intubation secondary to shortness of breath found from possible CHF exacerbation with pneumonia and BASIA/OHS as contributing factors. Patient has not been extubated and been saturating 80 well with nasal cannula. Patient is now in A-fib with RVR with heart rate in the 130s 140s. Assessment. Patient on amiodarone 200 daily and recently increased metoprolol to 100 daily. Will continue diuresing patient with Bumex. Case discussed with team. Ermias Torre MD PGY3 Documentation for date of: 03/03/25 Subjective Subjective Interval history: A 64-year-old male with significant past medical history of hypertension, diabetes mellitus, A-fib is admitted to the ICU on 02/27/2025 in view of altered mental status and shortness of breath for acute hypoxic respiratory failure and was intubated in view of suspected obesity hypoventilation syndrome/obstructive sleep apnea/pneumonia and acute kidney injury. Patient was started on Bumex drip, midodrine and gradually the renal functions and transaminitis started improving. As of 03/03/2025, patient was extubated and started on oxygen through nasal cannula. As patient's respiratory failure and shock resolved, patient is downgraded to the floors for further management Patient is seen and examined at bedside in the ICU Reported that he is feeling better and denies further complaints. Vitals are stable except for tachycardia with heart rate around 120. On physical examination, patient is noted to have severe obesity with anasarca and irregular heart rate Will continue Bumex drip tomorrow till tomorrow and will change it to IV scheduled doses Patient was started on metoprolol 100 Mg p.o. twice daily, will continue to monitor heart rate and titrate the dose accordingly Risks and benefits of Eliquis is discussed with the patient, will consult cardiology and start Eliquis Will continue bedtime CPAP Exam Vital Signs Temp Pulse Resp BP Pulse Ox O2 Del Method O2 Flow Rate 97.3 F 121 H 30 H 117/77 93 L Nasal Cannula 5 03/03/25 16:01 03/03/25 18:37 03/03/25 18:37 03/03/25 17:00 03/03/25 18:37 03/03/25 16:01 03/03/25 18:37 FiO2 40 03/03/25 12:00 Narrative Exam General: Awake. Morbidly obese. Anasarca HEENT: Normocephalic, atraumatic, mucous membranes moist. Heart: Irregular rate and rhythm, no murmurs. Lungs: Clear to auscultation with no wheezing or crackles. Abdomen: Soft, nondistended, nontender, positive bowel sounds. ?No guarding or rebound tenderness. Neurologic: Alert and oriented x3, no gross neurological deficit, and patient able to move all 4 extremities. Extremities: Bilateral 4+ pitting pedal edema extending up to the abdomen. Scrotal edema noted Skin: No rash or ecchymoses. Objective Labs 03/04/25 05:55 03/04/25 05:55 Labs: Laboratory Results - last 24 hr 03/03/25 03/03/25 03/03/25 04:40 07:22 12:52 WBC 9.4 RBC 4.54 Hgb 13.0 L Hct 39.0 L MCV 86 MCH 28.6 MCHC 33.3 RDW Std Deviation 42.8 Plt Count 202 Neut % (Auto) 75 Lymph % (Auto) 8 L [place] % (Auto) 15 H Eos % (Auto) 0 Baso % (Auto) 0 Neut # (Auto) 7.1 Lymph # (Auto) 0.7 L [place] # (Auto) 1.4 H Eos # (Auto) 0.0 Baso # (Auto) 0.0 Immature Gran # (Auto) 0.11 H Absolute Nucleated RBC 0.02 H Immature Gran % 1 H Nucleated RBC % 0 Puncture Site Left Radial ABG pH 7.45 ABG pCO2 43 ABG pO2 72 L ABG HCO3 30 H ABG O2 Saturation 94 ABG Base Excess 5 H FiO2 90 Sodium 145 146 H Potassium 3.5 D 3.6 Chloride 107 108 H Carbon Dioxide 29.1 29.5 Anion Gap 9 9 BUN 59 H 58 H Creatinine 2.4 H 2.4 H Estim Creat Clear Calc 58.7 L 58.7 L eGFR 29 L 29 L BUN/Creatinine Ratio 25 H 24 H Glucose 255 H D 235 H Calculated Osmolality 314 H 314 H Calcium 8.3 8.4 Corrected Calcium 9.0 Total Bilirubin 1.0 AST 82 H ALT 64 H Alkaline Phosphatase 108 Total Protein 5.5 L Albumin 3.1 L Globulin 2.4 Albumin/Globulin Ratio 1.3 03/03/25 16:40 WBC RBC Hgb Hct MCV MCH MCHC RDW Std Deviation Plt Count Neut % (Auto) Lymph % (Auto) [place] % (Auto) Eos % (Auto) Baso % (Auto) Neut # (Auto) Lymph # (Auto) [place] # (Auto) Eos # (Auto) Baso # (Auto) Immature Gran # (Auto) Absolute Nucleated RBC Immature Gran % Nucleated RBC % Puncture Site ABG pH ABG pCO2 ABG pO2 ABG HCO3 ABG O2 Saturation ABG Base Excess FiO2 Sodium Potassium 3.8 Chloride Carbon Dioxide Anion Gap BUN Creatinine Estim Creat Clear Calc eGFR BUN/Creatinine Ratio Glucose Calculated Osmolality Calcium Corrected Calcium Total Bilirubin AST ALT Alkaline Phosphatase Total Protein Albumin Globulin Albumin/Globulin Ratio ABG Interpretation ABG results: 02/27/25 02/28/25 03/01/25 06:55 04:57 04:39 ABG pH 7.27 L 7.37 D 7.41 ABG pCO2 57 H 48 44 ABG pO2 101 78 L D 69 L ABG HCO3 26 28 H 28 H ABG O2 Saturation 98 95 93 ABG Base Excess -2 2 3 03/01/25 03/01/25 03/02/25 13:15 14:52 04:25 ABG pH Cancelled 7.41 7.45 ABG pCO2 Cancelled 45 42 ABG pO2 Cancelled 53 L* 66 L ABG HCO3 Cancelled 28 H 29 H ABG O2 Saturation Cancelled 85 L 92 ABG Base Excess Cancelled 3 5 H 03/03/25 04:40 ABG pH 7.45 ABG pCO2 43 ABG pO2 72 L ABG HCO3 30 H ABG O2 Saturation 94 ABG Base Excess 5 H Quality Measures Quality Measures sepsis Current suspected stage: ruled out Possible source: pulmonary Blood cultures ordered: completed in ED Antibiotic ordered: Yes Advance care planning discussed with:: patient Assessment & Plan Assessment Current Active Medications: Generic Name Dose Route Start Last Admin Trade Name Freq PRN Reason Stop Dose Admin Acetaminophen 650 mg 02/27/25 09:24 Acetaminophen 325 Mg Tablet PO 03/29/25 09:23 Q4HR PRN PAIN SCALE 1-3 (mild Al Hydrox/Mg Hydrox/Simethicone 30 ml 02/27/25 09:24 Mg Hyd/Al Hyd/Virgilio (Maalox Reg) Susp 30 Ml Udc PO 03/29/25 09:23 Q4HR PRN Heartburn or Upset Stomach Amiodarone HCl 200 mg 03/01/25 09:00 03/03/25 09:18 Amiodarone Hcl 200 Mg Tablet PO 03/31/25 08:59 200 mg QDAY KOURTNEY Administration Dextrose 25 ml 03/03/25 08:20 Dextrose 50%-Water Inj 50 Ml Syringe IV 04/02/25 08:19 Q15MIN PRN BG 50-70 responsive npo pt Dextrose 50 ml 03/03/25 08:20 Dextrose 50%-Water Inj 50 Ml Syringe IV 04/02/25 08:19 Q15MIN PRN BG <50 OR BG <70 & pt unresponsive Enoxaparin Sodium 40 mg 02/27/25 21:00 03/03/25 09:17 Enoxaparin Sod Inj 40 Mg/0.4 Ml Syringe SC 03/13/25 20:59 40 mg Q12HR KOURTNEY Administration Glucagon 1 mg 03/03/25 08:20 Glucagon Inj 1 Mg Vial IM Q15MIN PRN BG <70, and no IV access Ceftriaxone Sodium/Dextrose 1 gm in 50 mls @ 100 mls/hr 03/01/25 10:19 03/03/25 09:17 Rocephin/D5w 1gm Iv Premix IV 03/06/25 10:18 100 mls/hr QDAY KOURTNEY Administration Bumetanide 20 mg/ IV 80 mls @ 8 mls/hr 03/03/25 09:16 03/03/25 10:06 Miscellaneous Supplies IV 03/04/25 05:15 2 mg/hr .Q10H KOURTNEY 8 mls/hr Administration 2 MG/HR Insulin Human Lispro 0 unit 03/03/25 11:30 03/03/25 17:39 Insulin Lispro (Admelog) 1 Unit/0.01 Ml Unit SC 04/02/25 11:29 2 unit AC KOURTNEY Administration Protocol Magnesium Hydroxide 30 ml 02/27/25 09:24 Milk Of Magnesia Susp 30 Ml Udc PO 03/29/25 09:23 QDAY PRN CONSTIPATION Metoprolol Succinate 100 mg 03/03/25 21:00 Metoprolol Succinate Xl 25 Mg Tabcr PO 04/02/25 20:59 BID KOURTNEY Pantoprazole Sodium 40 mg 02/27/25 11:15 03/03/25 09:17 Pantoprazole Inj 40 Mg Vial IV 03/29/25 11:14 40 mg QDAY KOURTNEY Administration Plan A 64-year-old male with significant past medical history of hypertension, diabetes mellitus, A-fib is admitted to the ICU on 02/27/2025 in view of altered mental status and shortness of breath for acute hypoxic respiratory failure and was intubated in view of suspected obesity hypoventilation syndrome/obstructive sleep apnea/pneumonia and acute kidney injury. #Acute hypoxic respiratory failure # Likely due to BASIA/OHS # Suspected underlying pneumonia Patient was intubated on 02/27/2025, extubated 03/03/2025 Cocci came back negative Plan - Continue Rocephin - At bedtime CPAP # Heart failure, predominantly right heart failure # In the setting of suspected OHS/BASIA in the setting of morbid obesity - Patient did not have any previous history of heart disease as except for A-fib - Presented to the hospital with chief complaints of shortness of breath and fainting - On physical examination, patient is morbidly obese and anasarca noted, which could be due to right heart failure from BASIA/OHS - Chest x-ray showed bilateral moderate vascular congestion - Echo could not visualize all chambers and could not provide ejection fraction Plan - Patient was started on Bumex drip, will continue till tomorrow and will change to IV scheduled doses - Fluid and salt restriction - Will consult cardiology if needed #Hx of A-fib - Patient does have a history of A-fib - On metoprolol succinate 100 mg daily at home - Not on any anticoagulation - [id number] score of 3 points indicating 3.2% risk of stroke per year Plan - Continue PO amiodarone 200 mg qday - Continue metoprolol succinate 100 Mg p.o. twice daily - Will start Eliquis after discussing risks and benefits with the patient #KENIA, improving #Lactic acidosis Creatinine increasing to 2.4 today Will continue Bumex drip 2 mg Avoid nephrotoxic agent Renally dose medication #Transaminitis, improving #Hyperbilirubinemia, resolved Likely elevated in the setting of right heart failure Will continue to monitor on daily CMP # Morbid obesity Patient has a BMI of 79.5 Hospital Maintenance: Diet: low sodium DVT ppx: Lovenox 40 mg q12 hr GI ppx: protonix IV lines: PIV Code status: Full code Patient plan of care was discussed with the attending physician, Dr. Leiva and senior resident Dr. Nicho Ahumada, PGY1 Attending Provider Attestation/Addendum Hetal Koch DO, attest that I was physically present for the cardoza portions of the service and evaluated the patient with the resident and I reviewed and discussed the case with the resident and agree with the resident's findings and plans of care as documented above Pt seen and evaluated this afternoon. Patient downgraded from ICU. Patient with BMI of 85 and history of type 2 diabetes, hypertension and A-fib admitted for acute encephalopathy and acute hypercapnic/hypoxic respiratory failure. An echo had been attempted, but of poor quality due to patient's body habitus. Patient has been on a Bumex drip due to suspected CHF. He has also completed azithromycin and remains on rocephin for pneumonia. Patient continues to have low grade fevers overnight. He was extubated this AM, doing well on 5L/NC. Will need nocturnal BiPap. He continues to have significant b/l LE edema extending to his lower abdomen. Purewick is in place for I's and O's. Patient states that he ambulates with walker at home, but does not go out of the house. Will order PT. Continue with daily weights. Monitor renal function with Bumex drip.
[2025-03-03] MEDS: METOPROLOL SUCCINATE XL 25 MG TABCR 100 MG PO (21:02)
[2025-03-04] VITALS (15 sets, daily range): BP systolic 119–146; BP diastolic 82–106; PULSE 101–122; RESP 25–36; TEMP 36.1–36.8; O2SAT 93–96; BMI 83.7
[2025-03-04 06:18] LABS: Lactate (Lactic Acid) 2.3 mMol/L (0.4-2.0)
[2025-03-04 06:33] LABS: Basophils % (Auto) 0 % (0-2.5); Eosinophils # (Auto) 0.1 Thou/mm3 (0.0-0.5); Eosinophils % (Auto) 1 % (0-10); Hematocrit 43.4 % (41.0-53.0); Immature Granulocytes % (Auto) 2 % (0-0); Immature Granulocytes Auto 0.19 Thou/mm3 (0.00-0.00); Lymphocytes % (Auto) 10 % (10-50); Mean Corpuscular HGB Conc 32.3 g/dl (31.0-37.0); Mean Corpuscular Hemoglobin 28.3 pg (25.0-35.0); Mean Corpuscular Volume 88 fL (80-100); Monocytes # (Auto) 1.7 Thou/mm3 (0.0-0.8); Monocytes % (Auto) 16 % (0-12); Neutrophils # (Auto) 7.2 Thou/mm3 (1.8-7.7); Neutrophils % (Auto) 70 % (37-80); Nucleated Red Blood Cell % 0 /100 WBC (0); Platelet Count 234 Thou/mm3 (140-440); RDW Standard Deviation 44.7 fL (35.1-43.9); Red Blood Count 4.94 Miln/mm3 (4.50-5.90); White Blood Count 10.2 Thou/mm3 (3.8-10.6)
[2025-03-04 06:46] LABS: Alanine Aminotransferase 61 U/L (10-49); Albumin, Serum 3.4 gm/dL (3.4-4.8); Albumin/Globulin Ratio 1.3 (1.2-2.2); Alkaline Phosphatase 125 U/L (46-116); Anion Gap 9 (7-16); Aspartate Amino Transferase 82 U/L (0-34); BUN/Creatinine Ratio 27 Ratio (12-20); Bilirubin,Total 0.9 mg/dL (0.3-1.2); Blood Urea Nitrogen 54 mg/dL (9-23); Calcium 8.7 mg/dL (8.3-10.6); Calcium (Corrected) 9.2 mg/dL (8.5-10.1); Carbon Dioxide 33.3 mMol/L (20.0-31.0); Chloride 106 mMol/L (98-107); Estimated Creatinine Clearance 70.3 mL/min (>60); Globulin 2.7 gm/dL (2.3-3.5); Glucose 218 mg/dL (74-106); Osmolality,Calculated 315 (275-295); Potassium 3.6 mMol/L (3.4-5.1); Sodium 148 mMol/L (136-145); Total Protein 6.1 gm/dL (5.7-8.2); eGFR 36 See Note
[2025-03-04] MEDS: BUMETANIDE INJ 0.25 MG/ML VIAL 4 ML 2 MG IVP ×2 (08:13→21:13)
[2025-03-04] MEDS: AMIODARONE HCL 200 MG TABLET PO (08:14)
[2025-03-04] MEDS: ENOXAPARIN SOD INJ 40 MG/0.4 ML SYRINGE SC (08:14)
[2025-03-04] MEDS: METOPROLOL SUCCINATE XL 25 MG TABCR 100 MG PO ×2 (08:14→21:12)
[2025-03-04] MEDS: PANTOPRAZOLE INJ 40 MG VIAL IV (08:14)
[2025-03-04] MEDS: cefTRIAXone/D5w 1gm IV premix 1 GM/50 ML BAG IV (08:15)
[2025-03-04] MEDS: INSULIN LISPRO (AdmeLOG) 1 UNIT/0.01 ML UNIT SC ×3 (08:16→17:06)
[2025-03-04 08:49] LABS: Magnesium 1.7 mg/dL (1.6-2.6)
[2025-03-04] MEDS: POTASSIUM CHLORIDE 20 mEq TABCR 40 MEQ PO (08:56)
[2025-03-04 09:09] LABS: Reflex Lactate? Y
[2025-03-04 09:57] LABS: Lactic Acid, 3 HR 2.4 mMol/L (0.4-2.0)
[2025-03-04] MEDS: Magnesium Sulfate 2 GM Ivpb 2 GM/50 ML BAG IV (11:46)
--- NOTE | 2025-03-04 14:32 | ESCONSULT_ITS ---
<Statement entered by Lenora John MD - 03/06/25 17:56> The patient is personally examined by me in the intensive care unit patient is morbidly obese male with what appears to be obesity sleep apnea morbid obesity pickwickian syndrome with right heart failure symptoms HFpEF has mostly right- sided heart failure symptoms and massive edema evaluated the patient with resident physician dr Mahnaz Betts MD agree with the treatment plan recommendation as documented HPI Data of Consult Requesting Physician: Hetal Leiva DO Admitting Provider: Angelique Maxwell MD Attending Provider: Hetal Leiva DO Primary Care Provider: Physician No Primary/Family Consult Narrative History of present illness: Patient is a 64-year-old male with past medical history of type 2 diabetes, hypertension, and A-fib who was admitted to the ICU on 02/27/2025 after coming to the ED with altered mental status and shortness of breath. He was intubated for acute hypoxic and hypercapneic respiratory failure and also required pressor support after fluid resuscitation. He was treated with IV ceftriaxone for extensive bilateral pneumonia. Echo on this admission showed poor quality images secondary to the patient's body habitus so was a technically limited study. Patient was able to extubate on 03/03 and since been saturating on 4-6L O2 and BiPAP/CPAP at night. Review of data shows BP maintaining in the 119/82 to 145/106 range, HR 100s in afib, RR 20-30. CBC is normalized, BUN 54, creatinine 2.0, GFR 36. Lactic acid consistently around 2.0-3.0. Potassium is 3.6 and mag is 1.7. Patient overall reports feeling better today, mild shortness of breath although he is able to both lay flat and sit up without noticing worsening. He denies any chest pain or palpitations. He reports at his baseline before coming into the hospital he was ambulatory with a walker, able to perform all ADLs but dependent on his parents for IADLs. Cardiology was consulted for possible right heart failure and afib. cc:: cc: Hetal Leiva DO Past Medical History Past Medical History CARDIAC: Positive Hypertension ENDOCRINE: Positive Diabetes Mellitus Type 2 Past Medical History Comments PMH COMMENT: PMH: DM2, hypertension, and A-fib Social Hx: Denies any smoking, drugs, admits social drinking Medications: Amlodipine, losartan, glipizide, metformin, metoprolol succinate, gabapentin, and tramadol Exam Vital Signs Temp Pulse Resp BP Pulse Ox O2 Del Method O2 Flow Rate 96.9 F 106 H 30 H 145/106 H 95 BiPAP 5 03/04/25 12:00 03/04/25 12:00 03/04/25 12:00 03/04/25 12:00 03/04/25 12:00 03/04/25 04:00 03/04/25 10:17 FiO2 40 03/04/25 06:10 Narrative Exam Physical Exam General: Morbidly obese male. Awake and in no acute distress. Conversational and non-toxic appearing. HEENT: Normocephalic, atraumatic, mucous membranes moist. 5L NC in place. Heart: Regular rate and rhythm, normal S1 and S2, no murmurs. Lungs: Clear to auscultation with no wheezing or crackles. Abdomen: Soft, obese, nondistended, nontender, positive bowel sounds. ?No guarding or rebound tenderness. Neurologic: Alert and oriented x3, no gross neurological deficit, and patient able to move all 4 extremities. Extremities: 2+ nonpitting edema lower extremities bilaterally. Skin: No rash or ecchymoses. Results Labs 03/04/25 05:55 03/04/25 05:55 Labs: Short CBC 03/04/25 Range/Units 05:55 WBC 10.2 (3.8-10.6) Thou/mm3 Hgb 14.0 (13.5-16.0) g/dL Hct 43.4 (41.0-53.0) % Plt Count 234 D (140-440) Thou/mm3 [facility] 03/03/25 03/04/25 16:40 05:55 Sodium 148 H Potassium 3.8 3.6 Chloride 106 Carbon Dioxide 33.3 H BUN 54 H Creatinine 2.0 H Glucose 218 H Calcium 8.7 Liver Function 03/04/25 Range/Units 05:55 Total Bilirubin 0.9 (0.3-1.2) mg/dL AST 82 H (0-34) U/L ALT 61 H (10-49) U/L Alkaline Phosphatase 125 H (46-116) U/L Albumin 3.4 (3.4-4.8) gm/dL ABG Interpretation ABG results: 02/27/25 02/28/25 03/01/25 06:55 04:57 04:39 ABG pH 7.27 L 7.37 D 7.41 ABG pCO2 57 H 48 44 ABG pO2 101 78 L D 69 L ABG HCO3 26 28 H 28 H ABG O2 Saturation 98 95 93 ABG Base Excess -2 2 3 03/01/25 03/01/25 03/02/25 13:15 14:52 04:25 ABG pH Cancelled 7.41 7.45 ABG pCO2 Cancelled 45 42 ABG pO2 Cancelled 53 L* 66 L ABG HCO3 Cancelled 28 H 29 H ABG O2 Saturation Cancelled 85 L 92 ABG Base Excess Cancelled 3 5 H 03/03/25 04:40 ABG pH 7.45 ABG pCO2 43 ABG pO2 72 L ABG HCO3 30 H ABG O2 Saturation 94 ABG Base Excess 5 H Quality Measures Quality Measures sepsis Current suspected stage: ruled out Possible source: pulmonary Blood cultures ordered: completed in ED Antibiotic ordered: Yes Advance care planning discussed with:: patient Medications Home Medications and Allergies Home Medications ?Medication ?Instructions ?Recorded ?Confirmed ?Type amlodipine 10 mg tablet 10 mg PO 1XD 02/27/25 History gabapentin 600 mg tablet 600 mg PO 3XD 02/27/2502/27 History glipizide 10 mg tablet 10 mg PO 1XD 02/27/25 History losartan 25 mg tablet 25 mg PO 1XD 02/27/25 History metformin 1,000 mg tablet 1,000 mg PO 2XD 02/27/25 History metoprolol succinate 100 mg 100 mg PO 2XD 02/27/25 History tablet,extended release 24 hr tramadol 50 mg tablet 50 mg PO 3XD 02/27/25 History Allergies Allergy/AdvReac Type Severity Reaction Status Date / Time No Known Allergies Allergy Verified 02/27/25 06:45 Visit Medications Acetaminophen (Acetaminophen 325 Mg Tablet) 650 mg PO Q4HR PRN PRN Reason: PAIN SCALE 1-3 (mild Stop: 03/29/25 09:23 Al Hydrox/Mg Hydrox/Simethicone (Mg Hyd/Al Hyd/Virgilio (Maalox Reg) Susp 30 Ml Udc) 30 ml PO Q4HR PRN PRN Reason: Heartburn or Upset Stomach Stop: 03/29/25 09:23 Amiodarone HCl (Amiodarone Hcl 200 Mg Tablet) 200 mg PO QDAY [facility] Stop: 03/31/25 08:59 Last Admin: 03/04/25 08:14 Dose: 200 mg Bumetanide (Bumetanide Inj 0.25 Mg/Ml Vial 4 Ml) 2 mg IVP BID [facility] Stop: 04/03/25 08:59 Last Admin: 03/04/25 08:13 Dose: 2 mg Dextrose (Dextrose 50%-Water Inj 50 Ml Syringe) 25 ml IV Q15MIN PRN PRN Reason: BG 50-70 responsive npo pt Stop: 04/02/25 08:19 Dextrose (Dextrose 50%-Water Inj 50 Ml Syringe) 50 ml IV Q15MIN PRN PRN Reason: BG <50 OR BG <70 & pt unresponsive Stop: 04/02/25 08:19 Enoxaparin Sodium (Enoxaparin Sod Inj 60 Mg/0.6 Ml Syringe) 60 mg SC Q12HR [facility] Stop: 03/18/25 20:59 Glucagon (Glucagon Inj 1 Mg Vial) 1 mg IM Q15MIN PRN PRN Reason: BG <70, and no IV access Ceftriaxone Sodium/Dextrose (Rocephin/D5w 1gm Iv Premix) 1 gm in 50 mls @ 100 mls/hr IV QDAY [facility] Stop: 03/06/25 10:18 Last Admin: 03/04/25 08:15 Dose: 100 mls/hr Insulin Glargine (Insulin Glargine (Lantus) 5 Unit/0.05 Ml (Per 5 Units)) 8 unit SC [facility] Stop: 04/03/25 20:59 Insulin Human Lispro (Insulin Lispro (Admelog) 1 Unit/0.01 Ml Unit) 0 unit SC AC [facility]; Protocol Stop: 04/02/25 11:29 Last Admin: 03/04/25 12:14 Dose: 2 unit Magnesium Hydroxide (Milk Of Magnesia Susp 30 Ml Udc) 30 ml PO QDAY PRN PRN Reason: CONSTIPATION Stop: 03/29/25 09:23 Metoprolol Succinate (Metoprolol Succinate Xl 25 Mg Tabcr) 100 mg PO BID [facility] Stop: 04/02/25 20:59 Last Admin: 04/21/25 08:14 Dose: 100 mg Pantoprazole Sodium (Pantoprazole Inj 40 Mg Vial) 40 mg IV QDAY [facility] Stop: 03/29/25 11:14 Last Admin: 03/04/25 08:14 Dose: 40 mg Discontinued Medications Acetaminophen (Acetaminophen Supp 650 Mg Supp) 650 mg [place] Q4HR PRN PRN Reason: PAIN SCALE 1-3 (mild Stop: 03/29/25 09:23 Bumetanide (Bumetanide Inj 0.25 Mg/Ml Vial 4 Ml) 1 mg IV X1 ONE Stop: 02/27/25 21:42 Last Admin: 02/27/25 22:11 Dose: 1 mg Enoxaparin Sodium (Enoxaparin Sod Inj 40 Mg/0.4 Ml Syringe) 40 mg SC QDAY [facility] Stop: 03/14/25 08:59 Enoxaparin Sodium (Enoxaparin Sod Inj 40 Mg/0.4 Ml Syringe) 40 mg SC Q12HR [facility] Stop: 03/13/25 20:59 Last Admin: 03/04/25 08:14 Dose: 40 mg Etomidate (Etomidate Inj 2 Mg/Ml Vial 10 Ml) 20 mg IVP X1 ONE Stop: 02/27/25 06:13 Last Admin: 02/27/25 06:14 Dose: 20 mg Etomidate (Etomidate Inj 2 Mg/Ml Vial 10 Ml) 20 mg IVP X1 ONE Stop: 02/27/25 07:39 Last Admin: 02/27/25 07:44 Dose: 20 mg Famotidine (Famotidine Inj 10 Mg/Ml Vial 2 Ml) 20 mg IVP QDAY [facility] Stop: 03/30/25 08:59 Furosemide (Furosemide Inj 10 Mg/Ml 4ml Vial) 60 mg IVP X1 ONE Stop: 02/27/25 16:13 Last Admin: 02/27/25 17:03 Dose: 60 mg Sodium Chloride (Ns) 1,000 mls @ 999 mls/hr IV .Q1H1M ONE Stop: 02/27/25 07:19 Last Infusion: 02/27/25 09:25 Dose: Infused Sodium Chloride (Ns) 1,000 mls @ 999 mls/hr IV .Q1H1M ONE Stop: 02/27/25 07:21 Last Infusion: 02/27/25 07:23 Dose: Infused Norepinephrine/Dextrose (Levophed In D5w 8mg/250ml) 8 mg in 250 mls @ 21.577 mls/hr IV .[id number] PRN; Protocol PRN Reason: PER PROTOCOL Stop: 03/29/25 06:57 Last Titration: 02/28/25 13:49 Dose: 0 mcg/kg/min, 0 mls/hr Sodium Chloride (Ns) 1,000 mls @ 999 mls/hr IV .Q1H1M ONE Stop: 02/27/25 08:01 Last Infusion: 02/27/25 09:25 Dose: Infused Sodium Chloride (Ns) 1,000 mls @ 999 mls/hr IV .Q1H1M ONE Stop: 02/27/25 08:18 Last Infusion: 02/27/25 09:25 Dose: Infused Ceftriaxone Sodium/Dextrose (Rocephin/D5w 1gm Iv Premix) 1 gm in 50 mls @ 100 mls/hr IV X1 ONE Stop: 02/27/25 07:47 Last Infusion: 02/27/25 09:25 Dose: Infused Acetaminophen (Ofirmev Inj) 1,000 mg in 100 mls @ 250 mls/hr IV X1 ONE Stop: 02/27/25 10:42 Last Infusion: 02/27/25 11:12 Dose: Infused Piperacillin Sod/Tazobactam (Sod 4.5 gm/ Sodium Chloride) 100 mls @ 200 mls/hr IV Q6HR [facility] Stop: 03/06/25 14:22 Last Admin: 02/28/25 05:34 Dose: 200 mls/hr Vancomycin HCl 2,000 mg/ (Sodium Chloride) 500 mls @ 150 mls/hr IV X1 ONE Stop: 02/27/25 18:19 Last Admin: 02/27/25 15:22 Dose: 150 mls/hr Amiodarone HCl/Dextrose (Nexterone Ivpb) 150 mg in 100 mls @ 600 mls/hr IV .Q10M ONE Stop: 02/27/25 19:36 Last Infusion: 02/27/25 19:47 Dose: Infused Amiodarone HCl/Dextrose (Nexterone Ivpb) 360 mg in 200 mls @ 33.333 mls/hr IV .Q6H ONE Stop: 02/28/25 01:36 Last Admin: 02/27/25 19:46 Dose: 33.333 mls/hr Amiodarone HCl/Dextrose (Nexterone Ivpb) 360 mg in 200 mls @ 16.667 mls/hr IV .Q12H [facility] Stop: 03/01/25 01:36 Last Admin: 02/28/25 13:56 Dose: 16.667 mls/hr Vancomycin HCl (Vancomycin/Water 1250 Mg Ivpb) 250 mls @ 120 mls/hr IV X1 ONE Stop: 02/28/25 12:04 Last Admin: 02/28/25 10:02 Dose: 120 mls/hr Piperacillin Sod/Tazobactam (Sod 4.5 gm/ Sodium Chloride) 100 mls @ 25 mls/hr IV Q8HR [facility]; Protocol Stop: 03/07/25 13:59 Last Admin: 03/01/25 05:26 Dose: 25 mls/hr Bumetanide 20 mg/ IV (Miscellaneous Supplies) 80 mls @ 4 mls/hr IV .Q20H [facility] Stop: 03/01/25 07:03 Last Admin: 02/28/25 12:11 Dose: 1 mg/hr, 4 mls/hr Vancomycin HCl (Vancomycin/Water 1250 Mg Ivpb) 250 mls @ 120 mls/hr IV X1 ONE Stop: 03/01/25 12:04 Last Admin: 03/01/25 08:58 Dose: 120 mls/hr Bumetanide 20 mg/ IV (Miscellaneous Supplies) 80 mls @ 8 mls/hr IV .Q10H [facility] Stop: 03/02/25 04:33 Last Admin: 03/02/25 02:26 Dose: 2 mg/hr, 8 mls/hr Azithromycin 500 mg/ Sodium (Chloride) 250 mls @ 250 mls/hr IV QDAY [facility] Stop: 03/03/25 10:18 Last Admin: 03/03/25 09:20 Dose: 250 mls/hr Dexmedetomidine/Sodium Chloride (Precedex Ivpb) 400 mcg in 100 mls @ 12.34 mls/hr IV .Q8H7M PRN; Protocol PRN Reason: Per PROTOCOL Stop: 03/31/25 18:13 Dexmedetomidine/Sodium Chloride (Precedex Ivpb) 200 mcg in 50 mls @ 12.34 mls/hr IV .Q4H4M PRN; Protocol PRN Reason: Per PROTOCOL Stop: 03/31/25 18:25 Last Titration: 03/03/25 02:00 Dose: 0 mcg/kg/hr, 0 mls/hr Bumetanide 20 mg/ IV (Miscellaneous Supplies) 80 mls @ 8 mls/hr IV .Q10H [facility] Stop: 03/03/25 08:51 Last Admin: 03/02/25 23:36 Dose: 2 mg/hr, 8 mls/hr Albumin Human (Albuminar-25 Ivpb) 12.5 gm in 50 mls @ 50 mls/hr IV X1 ONE Stop: 03/03/25 09:47 Last Admin: 03/03/25 09:17 Dose: 50 mls/hr Bumetanide 20 mg/ IV (Miscellaneous Supplies) 80 mls @ 8 mls/hr IV .Q10H [facility] Stop: 03/04/25 05:15 Last Admin: 03/03/25 20:06 Dose: 2 mg/hr, 8 mls/hr Potassium Chloride (Kcl Ivpb) 10 meq in 100 mls @ 100 mls/hr IV Q1H [facility] Stop: 03/03/25 13:21 Last Admin: 03/03/25 14:47 Dose: Not Given Potassium Chloride (Kcl Ivpb) 10 meq in 100 mls @ 100 mls/hr IV X1 ONE Stop: 03/03/25 15:42 Last Admin: 03/03/25 14:48 Dose: 100 mls/hr Magnesium Sulfate (Magnesium Sulfate Ivpb) 2 gm in 50 mls @ 25 mls/hr IV X1 ONE Stop: 03/04/25 12:13 Last Admin: 03/04/25 11:46 Dose: 25 mls/hr Insulin Glargine (Insulin Glargine (Lantus) 5 Unit/0.05 Ml (Per 5 Units)) 6 unit SC HS [facility] Stop: 04/03/25 20:59 Metoprolol Succinate (Metoprolol Succinate Xl 25 Mg Tabcr) 50 mg PO BID [facility] Stop: 04/01/25 09:29 Last Admin: 03/03/25 09:21 Dose: 50 mg Metoprolol Succinate (Metoprolol Succinate Xl 25 Mg Tabcr) 50 mg PO X1 ONE Stop: 03/03/25 13:17 Last Admin: 03/03/25 14:49 Dose: 50 mg Metoprolol Tartrate (Metoprolol Tartrate Inj 1 Mg/Ml Amp 5 Ml) 5 mg IVP X1 ONE Stop: 03/01/25 18:37 Last Admin: 03/01/25 18:41 Dose: 5 mg Midodrine (Midodrine 5 Mg Tablet) 10 mg PO Q6HR [facility] Stop: 03/30/25 11:59 Last Admin: 03/02/25 13:43 Dose: 10 mg Midodrine (Midodrine 5 Mg Tablet) 5 mg PO Q6HR [facility] Stop: 04/01/25 17:59 Last Admin: 03/04/25 11:28 Dose: Not Given Nitroglycerin (Nitroglycerin 0.4 Mg Subl Btl #25) 0.4 mg SL Q5MIN PRN PRN Reason: CHEST PAIN Pharmacy Consult (Vancomycin Pharmacy To Dose 1 Each Each) 1 each IV QDAY PRN PRN Reason: CONSULT Stop: 03/29/25 14:29 Potassium Chloride (Potassium Chloride 20 Meq Tabcr) 20 meq PO X1 ONE Stop: 03/03/25 14:43 Last Admin: 03/03/25 14:49 Dose: 20 meq Potassium Chloride (Potassium Chloride 20 Meq Tabcr) 40 meq PO X1 ONE Stop: 03/04/25 07:59 Last Admin: 03/04/25 08:56 Dose: 40 meq Rocuronium [place] (Rocuronium Inj 10 Mg/Ml Vial 10 Ml) 100 mg IVP X1 ONE Stop: 02/27/25 06:13 Last Admin: 02/27/25 06:14 Dose: 100 mg Rocuronium [place] (Rocuronium Inj 10 Mg/Ml Vial 10 Ml) 100 mg IV X1 ONE Stop: 02/27/25 07:40 Last Admin: 02/27/25 07:44 Dose: 100 mg Sodium Chloride (Sodium Chloride Rt 10% 15 Ml Nebu) 5 ml INH X1 ONE Stop: 02/27/25 14:39 Last Admin: 03/02/25 09:20 Dose: Not Given Sodium Polystyrene Sulfonate (Sod Polystyrene Sulfon Susp 15 Gm/60 Ml Btl) 30 gm PO X1 ONE Stop: 03/01/25 10:19 Last Admin: 03/01/25 10:58 Dose: 30 gm Assessment & Plan Plan 64-year-old male with significant past medical history of hypertension, diabetes mellitus, A-fib was admitted to the ICU on 02/27/2025 after coming in with altered mental status and shortness of breath, intubated for acute hypoxic respiratory failure and had suspected obesity hypoventilation syndrome/obstructive sleep apnea/pneumonia and acute kidney injury. Subsequently downgraded and cardiology has been consulted for suspected heart failure. #Right congestive heart failure #Possible cardiorenal syndrome Echo on this admission showed poor quality images secondary to the patient's body habitus so was a technically limited study. Patient is comfortably laying flat without experiencing increased shortness of breath. He is requiring supplemental O2 at 5-6L. Suspect chronic right heart failure in the setting of chronic obesity hypoventilation syndrome and obstructive sleep apnea. There is diffuse anasarca, which was worse on admission. After receiving diuresis has been improving. -Continue diuresis with bumetanide 2 mg IV BID -Consider adding spironolactone when KENIA improves -Continue with BiPAP therapy at night -Monitor strict I&Os -Limit sodium intake -Fluid restrictions #Atrial fibrillation, rate controlled Patient notes positive history of afib. He had previously been on metoprolol succinate 100 mg BID. Currently appears rate-controlled in the 100s. [id number] score 4 -Continue with home metoprolol succinate 100 mg BID -Continue with amiodarone 200 mg qday -Patient may be started on anticoagulation if there are no contraindications, agree with Xarelto 20 mg qday -Keep potassium >4.0 and mag >2.0 Rest of conditions to continue current management per primary team: #Acute hypoxic respiratory failure #Morbid obesity #OHS/BASIA #Community acquired pneumonia #Elevated LFTs #Hyperbilirubinemia #History of type 2 diabetes #Lactic acidosis #KENIA on CKD Patient was discussed with the Cardiology attending, Dr. John. Thank you for allowing us to participate in the care of this patient. Evi Betts, PGY-2
--- NOTE | 2025-03-04 15:12 | ESPR_ITS ---
<Statement entered by Ermias Torre MD - 03/04/25 17:10> Patient seen and assessed at bedside in ICU. Patient states to be feeling well. Patient continues to have heart rate in the 110s. Patient noted to be in A-fib with RVR yesterday and is doing much better now on Amio 200 p.o. and metoprolol 100 twice daily. Consulted cardiology in setting for further recommendations. Case discussed with team. Ermias Torre MD PGY3 Documentation for date of: 03/04/25 Subjective Subjective Interval history: Patient is seen and examined at bedside in the ICU No acute overnight events. Reported that he is feeling better and denies any other complaints Reported that he had some injury in the past and since then he is having numbness in left lower extremity and difficulty in moving the left extremity, patient is still having anasarca On physical examination The heart rate is around 90-100 Labs showed sodium 148, potassium 3.6, bicarb 33.3, BUN 54, creatinine 2, lactate 2.4, AST and ALT are down trending. Consulted Dr. John for for right heart failure, cardiorenal syndrome and A-fib. will continue diaphoresis and will add Eliquis after cardiology clearance Exam Vital Signs Temp Pulse Resp BP Pulse Ox O2 Del Method O2 Flow Rate 96.9 F 101 H 30 H 145/106 H 95 BiPAP 5 03/04/25 12:00 03/04/25 12:00 03/04/25 12:00 03/04/25 12:00 03/04/25 12:00 03/04/25 04:00 03/04/25 10:17 FiO2 40 03/04/25 06:10 Narrative Exam General: Awake. Morbidly obese. Anasarca HEENT: Normocephalic, atraumatic, mucous membranes moist. Heart: Irregular rate and rhythm, no murmurs. Lungs: Clear to auscultation with no wheezing or crackles. Abdomen: Soft, nondistended, nontender, positive bowel sounds. ?No guarding or rebound tenderness. Neurologic: Alert and oriented x3, no gross neurological deficit, and patient able to move all 4 extremities. Extremities: Bilateral 4+ pitting pedal edema extending up to the abdomen. Scrotal edema noted Skin: No rash or ecchymoses. Objective Labs 03/05/25 04:38 04/22/25 17:58 Labs: Laboratory Results - last 24 hr 03/03/25 03/04/25 03/04/25 16:40 05:55 09:38 WBC 10.2 RBC 4.94 Hgb 14.0 Hct 43.4 MCV 88 MCH 28.3 MCHC 32.3 RDW Std Deviation 44.7 H Plt Count 234 D Neut % (Auto) 70 Lymph % (Auto) 10 [place] % (Auto) 16 H Eos % (Auto) 1 Baso % (Auto) 0 Neut # (Auto) 7.2 Lymph # (Auto) 1.0 [place] # (Auto) 1.7 H Eos # (Auto) 0.1 Baso # (Auto) 0.0 Immature Gran # (Auto) 0.19 H Absolute Nucleated RBC 0.00 Immature Gran % 2 H Nucleated RBC % 0 Sodium 148 H Potassium 3.8 3.6 Chloride 106 Carbon Dioxide 33.3 H Anion Gap 9 BUN 54 H Creatinine 2.0 H Estim Creat Clear Calc 70.3 eGFR 36 L BUN/Creatinine Ratio 27 H Glucose 218 H Calculated Osmolality 315 H Lactic Acid 2.3 H 2.4 H Calcium 8.7 Corrected Calcium 9.2 Magnesium 1.7 Total Bilirubin 0.9 AST 82 H ALT 61 H Alkaline Phosphatase 125 H Total Protein 6.1 Albumin 3.4 Globulin 2.7 Albumin/Globulin Ratio 1.3 ABG Interpretation ABG results: 02/27/25 02/28/25 03/01/25 06:55 04:57 04:39 ABG pH 7.27 L 7.37 D 7.41 ABG pCO2 57 H 48 44 ABG pO2 101 78 L D 69 L ABG HCO3 26 28 H 28 H ABG O2 Saturation 98 95 93 ABG Base Excess -2 2 3 03/01/25 03/01/25 03/02/25 13:15 14:52 04:25 ABG pH Cancelled 7.41 7.45 ABG pCO2 Cancelled 45 42 ABG pO2 Cancelled 53 L* 66 L ABG HCO3 Cancelled 28 H 29 H ABG O2 Saturation Cancelled 85 L 92 ABG Base Excess Cancelled 3 5 H 03/03/25 04:40 ABG pH 7.45 ABG pCO2 43 ABG pO2 72 L ABG HCO3 30 H ABG O2 Saturation 94 ABG Base Excess 5 H Quality Measures Quality Measures sepsis Current suspected stage: ruled out Possible source: pulmonary Blood cultures ordered: completed in ED Antibiotic ordered: Yes Advance care planning discussed with:: patient Assessment & Plan Assessment Current Active Medications: Generic Name Dose Route Start Last Admin Trade Name Freq PRN Reason Stop Dose Admin Acetaminophen 650 mg 02/27/25 09:24 Acetaminophen 325 Mg Tablet PO 03/29/25 09:23 Q4HR PRN PAIN SCALE 1-3 (mild Al Hydrox/Mg Hydrox/Simethicone 30 ml 02/27/25 09:24 Mg Hyd/Al Hyd/Virgilio (Maalox Reg) Susp 30 Ml Udc PO 03/29/25 09:23 Q4HR PRN Heartburn or Upset Stomach Amiodarone HCl 200 mg 03/01/25 09:00 03/04/25 08:14 Amiodarone Hcl 200 Mg Tablet PO 03/31/25 08:59 200 mg QDAY KOURTNEY Administration Bumetanide 2 mg 03/04/25 09:00 03/04/25 08:13 Bumetanide Inj 0.25 Mg/Ml Vial 4 Ml IVP 04/03/25 08:59 2 mg BID KOURTNEY Administration Dextrose 25 ml 03/03/25 08:20 Dextrose 50%-Water Inj 50 Ml Syringe IV 04/02/25 08:19 Q15MIN PRN BG 50-70 responsive npo pt Dextrose 50 ml 03/03/25 08:20 Dextrose 50%-Water Inj 50 Ml Syringe IV 04/02/25 08:19 Q15MIN PRN BG <50 OR BG <70 & pt unresponsive Enoxaparin Sodium 60 mg 03/04/25 21:00 Enoxaparin Sod Inj 60 Mg/0.6 Ml Syringe SC 03/18/25 20:59 Q12HR KOURTNEY Glucagon 1 mg 03/03/25 08:20 Glucagon Inj 1 Mg Vial IM Q15MIN PRN BG <70, and no IV access Ceftriaxone Sodium/Dextrose 1 gm in 50 mls @ 100 mls/hr 03/01/25 10:19 03/04/25 08:15 Rocephin/D5w 1gm Iv Premix IV 03/06/25 10:18 100 mls/hr QDAY KOURTNEY Administration Insulin Glargine 8 unit 03/04/25 21:00 Insulin Glargine (Lantus) 5 Unit/0.05 Ml (Per 5 Units) SC 04/03/25 20:59 HS KOURTNEY Insulin Human Lispro 0 unit 03/03/25 11:30 03/04/25 12:14 Insulin Lispro (Admelog) 1 Unit/0.01 Ml Unit SC 04/02/25 11:29 2 unit AC KOURTNEY Administration Protocol Magnesium Hydroxide 30 ml 02/27/25 09:24 Milk Of Magnesia Susp 30 Ml Udc PO 03/29/25 09:23 QDAY PRN CONSTIPATION Metoprolol Succinate 100 mg 03/03/25 21:00 03/04/25 08:14 Metoprolol Succinate Xl 25 Mg Tabcr PO 04/02/25 20:59 100 mg BID KOURTNEY Administration Pantoprazole Sodium 40 mg 02/27/25 11:15 03/04/25 08:14 Pantoprazole Inj 40 Mg Vial IV 03/29/25 11:14 40 mg QDAY KOURTNEY Administration Plan A 64-year-old male with significant past medical history of hypertension, diabetes mellitus, A-fib is admitted to the ICU on 02/27/2025 in view of altered mental status and shortness of breath for acute hypoxic respiratory failure and was intubated in view of suspected obesity hypoventilation syndrome/obstructive sleep apnea/pneumonia and acute kidney injury. #Acute hypoxic respiratory failure, resolved # Likely due to BASIA/OHS # Suspected underlying pneumonia Patient was intubated on 02/27/2025, extubated 03/03/2025 Cocci came back negative Plan - Will continue continue Rocephin[03/01-03/06] - Oxygen as needed - Will continue bedtime CPAP # Heart failure, predominantly right heart failure # In the setting of suspected OHS/BASIA in the setting of morbid obesity - Patient did not have any previous history of heart disease as except for A-fib - Presented to the hospital with chief complaints of shortness of breath and fainting - On physical examination, patient is morbidly obese and anasarca noted, which could be due to right heart failure from BASIA/OHS - Chest x-ray showed bilateral moderate vascular congestion - Echo could not visualize all chambers and could not provide ejection fraction Plan - Patient was On Bumex drip till 03/03/2025 - Started on Bumex 2 mg IV push twice daily - Will continue to monitor renal functions and electrolytes - Fluid and salt restriction - Consulted Dr. John, will appreciate his recommendations #Hx of A-fib - Patient does have a history of A-fib - On metoprolol succinate 100 mg - Not on any anticoagulation - [id number] score is 4, history of diabetes mellitus, hypertension, CHF, male sex Plan - Continue PO amiodarone 200 mg qday - Continue metoprolol succinate 100 Mg p.o. twice daily - Will start Eliquis after discussing risks and benefits with the patient - Cardiology Dr. John is consulted and will follow recommendations #KENIA vs Acute on CKD, improving #Lactic acidosis - Baseline creatinine is 0.9 in 2021 - Creatinine at the time of admission is 2.1, continued to uptrend and peaked at 3.1 on 03/01/2025, later started to downtrend and as of 03/04/2025, creatinine is 2 Plan - Will continue IV Bumex 2 Mg twice daily for now - Will continue to monitor renal functions - Avoid nephrotoxic medications and renally dose medications # Diabetes mellitus - HbA1c in 2021 is 6.1 - Repeat HbA1c is ordered Plan - Patient is started on insulin sliding scale and glargine 8 units subcutaneous at bedtime - Will adjust insulin based on blood sugars - Hypoglycemic protocol is in place #Transaminitis, improving #Hyperbilirubinemia, resolved Likely elevated in the setting of right heart failure Will continue to monitor on daily CMP # Morbid obesity Patient has a BMI of 79.5 Patient had history of gastric bypass 10 years ago, lost significant amount of weight at the time and regained it later Recommended to follow-up in outpatient basis to work on weight loss Hospital Maintenance: Diet: low sodium, carb consistent diet DVT ppx: Lovenox 60 mg q12 hr GI ppx: protonix IV lines: PIV Code status: Full code Patient plan of care was discussed with the attending physician, Dr. Leiva and senior resident Dr. Nicho Ahumada, PGY1 Attending Provider Attestation/Addendum I, Hetal Leiva, DO, attest that I was physically present for the cardoza portions of the service and evaluated the patient with the resident and I reviewed and discussed the case with the resident and agree with the resident's findings and plans of care as documented above Patient seen and evaluated this AM. Patient reports pain in his knees and takes tramadol at home. However, due to concern for Co2 retention, pt is agreeable to try tyelnol for pain control. PT also pending. Bumex drip completed. Will switch to bumex pushes, monitor volume status closely, as well as renal function and electrolytes. Peripheral edema much improved. Case discussed with cardiology, agrees with starting xarelto given CHADSVASC2 of 5 points. Recommended spironolactone, but will hold off at this time as Cr is 2.0. HR otherwise rate controlled
--- NOTE | 2025-03-04 17:28 | PC.SS ---
SS update: pending consult with Dr. John.
[2025-03-04] MEDS: RIVAROXABAN 10 MG TABLET 20 MG PO (17:59)
[2025-03-04] MEDS: MELATONIN 3 MG TABLET PO (21:12)
[2025-03-04] MEDS: INSULIN GLARGINE (Lantus) 5 UNIT/0.05 ML (PER 5 UNITS) 8 UNIT SC (21:14)
[2025-03-05] VITALS (33 sets, daily range): BP systolic 123–161; BP diastolic 77–116; PULSE 100–121; RESP 14–45; TEMP 35.8–37.1; O2SAT 87–97; BMI 80.3
[2025-03-05 06:06] LABS: Basophils % (Auto) 0 % (0-2.5); Eosinophils # (Auto) 0.5 Thou/mm3 (0.0-0.5); Eosinophils % (Auto) 5 % (0-10); Hematocrit 45.4 % (41.0-53.0); Hemoglobin 14.3 g/dL (13.5-16.0); Immature Granulocytes % (Auto) 2 % (0-0); Immature Granulocytes Auto 0.16 Thou/mm3 (0.00-0.00); Lymphocytes # (Auto) 0.9 Thou/mm3 (1.0-4.8); Lymphocytes % (Auto) 9 % (10-50); Mean Corpuscular HGB Conc 31.5 g/dl (31.0-37.0); Mean Corpuscular Volume 89 fL (80-100); Monocytes # (Auto) 1.4 Thou/mm3 (0.0-0.8); Monocytes % (Auto) 14 % (0-12); Neutrophils # (Auto) 7.4 Thou/mm3 (1.8-7.7); Neutrophils % (Auto) 70 % (37-80); Nucleated Red Blood Cell % 0 /100 WBC (0); Platelet Count 295 Thou/mm3 (140-440); RDW Standard Deviation 45.6 fL (35.1-43.9); Red Blood Count 5.11 Miln/mm3 (4.50-5.90); White Blood Count 10.5 Thou/mm3 (3.8-10.6)
[2025-03-05 06:31] LABS: Glucose Estimated Average 171 mg/dL (80-131); Hemoglobin A1C 7.6 % Hgb (4.8-6.0)
[2025-03-05 06:32] LABS: Alanine Aminotransferase 54 U/L (10-49); Albumin, Serum 3.5 gm/dL (3.4-4.8); Albumin/Globulin Ratio 1.3 (1.2-2.2); Alkaline Phosphatase 138 U/L (46-116); Anion Gap 5 (7-16); Aspartate Amino Transferase 54 U/L (0-34); BUN/Creatinine Ratio 29 Ratio (12-20); Bilirubin,Total 0.7 mg/dL (0.3-1.2); Blood Urea Nitrogen 47 mg/dL (9-23); Calcium 9.2 mg/dL (8.3-10.6); Calcium (Corrected) 9.6 mg/dL (8.5-10.1); Carbon Dioxide 38.6 mMol/L (20.0-31.0); Chloride 107 mMol/L (98-107); Creatinine (Component) 1.6 mg/dL (0.6-1.3); Estimated Creatinine Clearance 85.4 mL/min (>60); Globulin 2.6 gm/dL (2.3-3.5); Glucose 242 mg/dL (74-106); Magnesium 1.8 mg/dL (1.6-2.6); Osmolality,Calculated 320 (275-295); Potassium 3.9 mMol/L (3.4-5.1); Sodium 151 mMol/L (136-145); Total Protein 6.1 gm/dL (5.7-8.2); eGFR 48 See Note
[2025-03-05] MEDS: INSULIN LISPRO (AdmeLOG) 1 UNIT/0.01 ML UNIT SC ×4 (07:27→23:27)
[2025-03-05] MEDS: METOPROLOL SUCCINATE XL 25 MG TABCR 100 MG PO ×2 (09:50→20:57)
[2025-03-05] MEDS: POTASSIUM CHLORIDE 20 mEq TABCR 40 MEQ PO (09:50)
[2025-03-05] MEDS: AMIODARONE HCL 200 MG TABLET PO (09:51)
[2025-03-05] MEDS: BUMETANIDE INJ 0.25 MG/ML VIAL 4 ML 2 MG IVP (09:51)
[2025-03-05] MEDS: cefTRIAXone/D5w 1gm IV premix 1 GM/50 ML BAG IV (09:51)
[2025-03-05] MEDS: PANTOPRAZOLE INJ 40 MG VIAL IV (09:52)
[2025-03-05] MEDS: Magnesium Sulfate 2 GM Ivpb 2 GM/50 ML BAG IV (10:02)
[2025-03-05] MEDS: ACETAzolaMIDE SOD 250 MG in SODIUM CHLORIDE 0.9% 50 ML 100 MG IV (12:26)
--- NOTE | 2025-03-05 15:02 | PC.SS ---
Rounding Note: Plan is to continue diuresising patient. Patient to be downgraded from ICU today.
--- NOTE | 2025-03-05 15:15 | PC.NURSE ---
Received pt from icu, pt no complaints of pain and moved to [facility]
--- NOTE | 2025-03-05 15:28 | PC.SS ---
COVERSTITCH MACHINE OPERATOR attempted bedside contact with the patient to conduct initial assessment. Patient unable to answer full name or state date of . COVERSTITCH MACHINE OPERATOR attempted to conduct phone contact with patient's father, Zia Ortega . No response. Message left requesting return call.
[2025-03-05 17:00] LABS: Base Excess 9 (-3-3); HCO3 38 mEq/L (20-26); Inspired Oxygen, FIO2 21 %; O2 Saturation 95 % (91-98); PCO2 72 mmHg (32.0-48.0); PO2 83 mmHg (83-108); pH, Arterial 7.34 (7.35-7.45)
--- NOTE | 2025-03-05 17:00 | PC.NURSE ---
Pt desaturating 90 O2 on 15L, Dr. Ahumdaa at bedside and ordered to keep pt on bipap. Pt continued to have increased confusion and pulled off bipap twice. Dr. Ahumada ordered bilat soft limb restraints. ABG and labs ordered.
[2025-03-05 17:12] LABS: Allen Test Performed/OK; Puncture Site Left Radial
--- NOTE | 2025-03-05 17:12 | ESPR_ITS ---
<Statement entered by Pavel Mendoza MD - 03/11/25 13:19> I reviewed above note and agree with findings and plans. I have also personally examined the patient with medicine team and went over assessment and plan with medical team including college intern and resident physician. <Statement entered by Poncho Espinosa MD - 03/06/25 14:40> Senior Resident Attestation: I supervised/discussed management plan with college intern physician Dr. Ahumada, and was involved in the care of this patient. I personally saw and examined the patient and discussed the assessment and plan with the entire medicine team, including my attending. I agree with the assessment and plan as documented. Patient reports no complaints today and reports his breathing is fine. He remains on 4 L NC saturating normal. His Bumex was decreased to 1 mg twice daily due to intravascular volume depletion. Overnight patient remained only several hours on BiPAP. He was strongly encouraged to be on BiPAP all night. Will continue current management and monitor patient. Patient's care was discussed with attending physician, Dr. Mendoza. Poncho Espinosa MD PGY-2. Documentation for date of: 03/05/25 Subjective Subjective Interval history: Patient is seen and examined at bedside Overnight, patient is on CPAP only for few hours, per nurse and he is on nasal cannula throughout the night. Patient is complaining of generalized weakness Vitals are stable with heart rate around 90-100 saturating 92% on 4 L oxygen through nasal cannula On physical examination, noted irregular heart rate, ecchymotic patches at the IV line sites and pedal edema seems to be improving Labs showed mild hyponatremia sodium 151, bicarb 38.6, BUN 47, creatinine 1.6, HbA1c is 7.6, AST and ALT are downtrending A dose of Diamox 250 Mg IV is given Will change Bumex 2 Mg IV twice daily to 1 Mg IV twice daily 40 mg of oral potassium and 2 g of magnesium is given Will continue at bedtime CPAP Will continue to monitor renal functions Around 4:45 PM, patient became drowsy and vitals showed mildly elevated blood pressures, SpO2 79% with 4 L oxygen. Patient was started on CPAP, ABG and renal panel is ordered Will follow-up with the results and will continue BiPAP overnight Exam Vital Signs Temp Pulse Resp BP Pulse Ox O2 Del Method O2 Flow Rate 98.4 F 115 H 26 H 161/116 H 92 L Nasal Cannula 4 03/05/25 12:03 03/05/25 15:30 03/05/25 15:30 03/05/25 09:51 03/05/25 15:35 03/05/25 04:00 03/05/25 06:15 FiO2 40 03/04/25 20:00 Narrative Exam General: Awake. Morbidly obese. Anasarca HEENT: Normocephalic, atraumatic, mucous membranes moist. Heart: Irregular rate and rhythm, no murmurs. Lungs: Clear to auscultation with no wheezing or crackles. Abdomen: Soft, nondistended, nontender, positive bowel sounds. ?No guarding or rebound tenderness. Neurologic: Alert and oriented x3, no gross neurological deficit, and patient able to move all 4 extremities. Extremities: Bilateral 4+ pitting pedal edema extending up to the abdomen. Scrotal edema noted Skin: No rash or ecchymoses. Objective Labs 03/05/25 04:38 03/05/25 04:38 Labs: Laboratory Results - last 24 hr 03/05/25 03/05/25 03/05/25 04:38 16:30 16:55 WBC 10.5 RBC 5.11 Hgb 14.3 Hct 45.4 MCV 89 MCH 28.0 MCHC 31.5 RDW Std Deviation 45.6 H Plt Count 295 D Neut % (Auto) 70 Lymph % (Auto) 9 L [place] % (Auto) 14 H Eos % (Auto) 5 Baso % (Auto) 0 Neut # (Auto) 7.4 Lymph # (Auto) 0.9 L [place] # (Auto) 1.4 H Eos # (Auto) 0.5 Baso # (Auto) 0.0 Immature Gran # (Auto) 0.16 H Absolute Nucleated RBC 0.00 Immature Gran % 2 H Nucleated RBC % 0 Puncture Site Cancelled Left Radial ABG pH Cancelled 7.34 L D ABG pCO2 Cancelled 72 H* D ABG pO2 Cancelled 83 ABG HCO3 Cancelled 38 H ABG O2 Saturation Cancelled 95 ABG Base Excess Cancelled 9 H Oxygen Liter Flow Cancelled FiO2 Cancelled 21 Sodium 151 H Potassium 3.9 Chloride 107 Carbon Dioxide 38.6 H Anion Gap 5 L BUN 47 H Creatinine 1.6 H Estim Creat Clear Calc 85.4 eGFR 48 L BUN/Creatinine Ratio 29 H Glucose [address] Glu mg/dL 171 H Hemoglobin A1c 7.6 H Calculated Osmolality 320 H Calcium 9.2 Corrected Calcium 9.6 Magnesium 1.8 Total Bilirubin 0.7 AST 54 H ALT 54 H Alkaline Phosphatase 138 H Total Protein 6.1 Albumin 3.5 Globulin 2.6 Albumin/Globulin Ratio 1.3 ABG Interpretation ABG results: 02/27/25 02/28/25 03/01/25 06:55 04:57 04:39 ABG pH 7.27 L 7.37 D 7.41 ABG pCO2 57 H 48 44 ABG pO2 101 78 L D 69 L ABG HCO3 26 28 H 28 H ABG O2 Saturation 98 95 93 ABG Base Excess -2 2 3 03/01/25 03/01/25 03/02/25 13:15 14:52 04:25 ABG pH Cancelled 7.41 7.45 ABG pCO2 Cancelled 45 42 ABG pO2 Cancelled 53 L* 66 L ABG HCO3 Cancelled 28 H 29 H ABG O2 Saturation Cancelled 85 L 92 ABG Base Excess Cancelled 3 5 H 03/03/25 03/05/25 03/05/25 04:40 16:30 16:55 ABG pH 7.45 Cancelled 7.34 L D ABG pCO2 43 Cancelled 72 H* D ABG pO2 72 L Cancelled 83 ABG HCO3 30 H Cancelled 38 H ABG O2 Saturation 94 Cancelled 95 ABG Base Excess 5 H Cancelled 9 H Quality Measures Quality Measures sepsis Current suspected stage: ruled out Possible source: pulmonary Blood cultures ordered: completed in ED Antibiotic ordered: Yes Advance care planning discussed with:: patient Assessment & Plan Assessment Current Active Medications: Generic Name Dose Route Start Last Admin Trade Name Freq PRN Reason Stop Dose Admin Acetaminophen 650 mg 02/27/25 09:24 Acetaminophen 325 Mg Tablet PO 03/29/25 09:23 Q4HR PRN PAIN SCALE 1-3 (mild Al Hydrox/Mg Hydrox/Simethicone 30 ml 02/27/25 09:24 Mg Hyd/Al Hyd/Virgilio (Maalox Reg) Susp 30 Ml Udc PO 03/29/25 09:23 Q4HR PRN Heartburn or Upset Stomach Amiodarone HCl 200 mg 03/01/25 09:00 03/05/25 09:51 Amiodarone Hcl 200 Mg Tablet PO 03/31/25 08:59 200 mg QDAY KOURTNEY Administration Bumetanide 1 mg 03/05/25 21:00 Bumetanide Inj 0.25 Mg/Ml Vial 4 Ml IVP 04/04/25 20:59 BID KOURTNEY Dextrose 25 ml 03/03/25 08:20 Dextrose 50%-Water Inj 50 Ml Syringe IV 04/02/25 08:19 Q15MIN PRN BG 50-70 responsive npo pt Dextrose 50 ml 03/03/25 08:20 Dextrose 50%-Water Inj 50 Ml Syringe IV 04/02/25 08:19 Q15MIN PRN BG <50 OR BG <70 & pt unresponsive Glucagon 1 mg 03/03/25 08:20 Glucagon Inj 1 Mg Vial IM Q15MIN PRN BG <70, and no IV access Ceftriaxone Sodium/Dextrose 1 gm in 50 mls @ 100 mls/hr 03/01/25 10:19 03/05/25 09:51 Rocephin/D5w 1gm Iv Premix IV 03/06/25 10:18 100 mls/hr QDAY KOURTNEY Administration Insulin Glargine 14 unit 03/05/25 21:00 Insulin Glargine (Lantus) 5 Unit/0.05 Ml (Per 5 Units) SC 04/04/25 20:59 HS KOURTNEY Insulin Human Lispro 0 unit 03/03/25 11:30 03/05/25 12:19 Insulin Lispro (Admelog) 1 Unit/0.01 Ml Unit SC 04/02/25 11:29 2 unit AC KOURTNEY Administration Protocol Magnesium Hydroxide 30 ml 02/27/25 09:24 Milk Of Magnesia Susp 30 Ml Udc PO 03/29/25 09:23 QDAY PRN CONSTIPATION Metoprolol Succinate 100 mg 03/03/25 21:00 03/05/25 09:50 Metoprolol Succinate Xl 25 Mg Tabcr PO 04/02/25 20:59 100 mg BID KOURTNEY Administration Pantoprazole Sodium 40 mg 02/27/25 11:15 03/05/25 09:52 Pantoprazole Inj 40 Mg Vial IV 03/29/25 11:14 40 mg QDAY KOURTNEY Administration Rivaroxaban 20 mg 03/04/25 17:30 03/05/25 17:06 Rivaroxaban 10 Mg Tablet PO 04/03/25 17:29 Not Given WSUPPER KOURTNEY Plan A 64-year-old male with significant past medical history of hypertension, diabetes mellitus, A-fib is admitted to the ICU on 02/27/2025 in view of altered mental status and shortness of breath for acute hypoxic respiratory failure and was intubated in view of suspected obesity hypoventilation syndrome/obstructive sleep apnea/pneumonia and acute kidney injury. # Metabolic alkalosis Likely contraction in the setting of diuretic usage - Bicarb as of 03/05/2025 is 38.6 Plan - Decreased dose of Bumex from 2 mg IV twice daily to 1 mg IV twice daily - A dose of Bumex 250 mg X 1 dose is given as of 03/05/2025 - Will continue to monitor renal function panel # Hypernatremia - As of 03/05/2025, sodium is 151 Plan - Water restriction was increased to 2000 cc - Encouraged to take oral fluids - Will continue to monitor renal panel and if does not improve, will start on D5W #Acute hypoxic respiratory failure, resolved # Likely due to BASIA/OHS # Suspected underlying pneumonia Patient was intubated on 02/27/2025, extubated 03/03/2025 Cocci came back negative Plan - Will continue continue Rocephin[03/01-03/06] - Oxygen as needed - Will continue bedtime CPAP # Heart failure, predominantly right heart failure # In the setting of suspected OHS/BASIA in the setting of morbid obesity - Patient did not have any previous history of heart disease as except for A-fib - Presented to the hospital with chief complaints of shortness of breath and fainting - On physical examination, patient is morbidly obese and anasarca noted, which could be due to right heart failure from BASIA/OHS - Chest x-ray showed bilateral moderate vascular congestion - Echo could not visualize all chambers and could not provide ejection fraction Plan - Patient was On Bumex drip till 03/03/2025 - Started on Bumex 2 mg IV push twice daily and decrease dose to Bumex 1 Mg IV twice daily since 03/05/2025 - A dose of Diamox 250 Mg IV push is given in view of metabolic alkalosis secondary to diuresis - Will continue to monitor renal functions and electrolytes - Fluid and salt restriction - Consulted Dr. John, will appreciate his recommendations #KENIA vs Acute on CKD, improving Likely cardiorenal syndrome in the setting of severe right heart failure - Baseline creatinine is 0.9 in 2021 - Creatinine at the time of admission is 2.1, continued to uptrend and peaked at 3.1 on 03/01/2025, later started to downtrend and as of 03/05/2025, creatinine is 1.6 Plan - Will continue IV Bumex 1 Mg twice daily for now - Will continue to monitor renal functions - Avoid nephrotoxic medications and renally dose medications #Hx of A-fib - Patient does have a history of A-fib - On metoprolol succinate 100 mg - Not on any anticoagulation - [id number] score is 4, history of diabetes mellitus, hypertension, CHF, male sex Plan - Continue PO amiodarone 200 mg qday - Continue metoprolol succinate 100 Mg p.o. twice daily - Will start Eliquis after discussing risks and benefits with the patient - Cardiology Dr. John is consulted and will follow recommendations # Diabetes mellitus - HbA1c in 2021 is 6.1 - Repeat HbA1c is ordered Plan - Patient is started on insulin sliding scale and glargine 8 units subcutaneous at bedtime - Will adjust insulin based on blood sugars - Hypoglycemic protocol is in place #Transaminitis, improving #Hyperbilirubinemia, resolved Likely elevated in the setting of right heart failure Will continue to monitor on daily CMP # Morbid obesity Patient has a BMI of 79.5 Patient had history of gastric bypass 10 years ago, lost significant amount of weight at the time and regained it later Recommended to follow-up in outpatient basis to work on weight loss Hospital Maintenance: Diet: low sodium, carb consistent diet DVT ppx: Lovenox 60 mg q12 hr GI ppx: protonix IV lines: PIV Code status: Full code Patient plan of care was discussed with the attending physician, Dr. Mendoza and senior resident Dr. Francisca Ahumada, PGY1 Attending Provider Attestation/Addendum
[2025-03-05 17:42] LABS: Anion Gap 4 (7-16); BUN/Creatinine Ratio 33 Ratio (12-20); Blood Urea Nitrogen 46 mg/dL (9-23); Calcium 8.7 mg/dL (8.3-10.6); Carbon Dioxide 34.8 mMol/L (20.0-31.0); Chloride 108 mMol/L (98-107); Creatinine (Component) 1.4 mg/dL (0.6-1.3); Estimated Creatinine Clearance 97.6 mL/min (>60); Glucose 262 mg/dL (74-106); Osmolality,Calculated 313 (275-295); Potassium 4.3 mMol/L (3.4-5.1); Sodium 147 mMol/L (136-145); eGFR 56 See Note
[2025-03-05 17:43] LABS: Albumin, Serum 3.3 gm/dL (3.4-4.8); Calcium (Corrected) 9.3 mg/dL (8.5-10.1); Phosphorous 3.7 mg/dL (2.4-5.1)
[2025-03-05 18:55] LABS: Albumin, Serum 3.4 gm/dL (3.4-4.8); Anion Gap 6 (7-16); BUN/Creatinine Ratio 33 Ratio (12-20); Blood Urea Nitrogen 46 mg/dL (9-23); Calcium 8.9 mg/dL (8.3-10.6); Calcium (Corrected) 9.4 mg/dL (8.5-10.1); Carbon Dioxide 35.8 mMol/L (20.0-31.0); Chloride 103 mMol/L (98-107); Creatinine (Component) 1.4 mg/dL (0.6-1.3); Estimated Creatinine Clearance 97.6 mL/min (>60); Glucose 253 mg/dL (74-106); Osmolality,Calculated 309 (275-295); Phosphorous 3.6 mg/dL (2.4-5.1); Potassium 3.8 mMol/L (3.4-5.1); Sodium 145 mMol/L (136-145); eGFR 56 See Note
--- NOTE | 2025-03-05 20:07 | ESPR_ITS ---
<Statement entered by Lenora John MD - 03/06/25 18:01> I evaluated the patient with resident physician PGY 3 Dr. Leonel Wilder patient has predominant right heart failure and doing fairly well not have any further changes continue present medication including beta-paul metoprolol succinate continue to monitor for fluid intake and treat underlying problems and morbid obesity is possibly contributing to right heart failure as well. No further workup is recommended at this time from the cardiac point of view Documentation for date of: 03/05/25 Subjective Subjective Interval history: Patient seen and examined. No overnight events. Labs and vitals reviewed. Exam Vital Signs Temp Pulse Resp BP Pulse Ox O2 Del Method O2 Flow Rate 97.3 F 110 H 38 H 139/102 H 94 L Nasal Cannula 15 03/05/25 16:00 03/05/25 19:34 03/05/25 19:34 03/05/25 16:00 03/05/25 19:34 03/05/25 16:00 03/05/25 16:00 FiO2 50 03/05/25 19:34 Narrative Exam General: Awake. Morbidly obese. Anasarca HEENT: Normocephalic, atraumatic, mucous membranes moist. Heart: Irregular rate and rhythm, no murmurs. Lungs: Clear to auscultation with no wheezing or crackles. Abdomen: Soft, nondistended, nontender, positive bowel sounds. ?No guarding or rebound tenderness. Neurologic: Alert and oriented x3, no gross neurological deficit, and patient able to move all 4 extremities. Extremities: Bilateral 4+ pitting pedal edema extending up to the abdomen. Scrotal edema noted Skin: No rash or ecchymoses. Objective Labs 03/05/25 04:38 03/05/25 17:58 Labs: Laboratory Results - last 24 hr 03/05/25 03/05/25 03/05/25 04:38 16:30 16:53 WBC 10.5 RBC 5.11 Hgb 14.3 Hct 45.4 MCV 89 MCH 28.0 MCHC 31.5 RDW Std Deviation 45.6 H Plt Count 295 D Neut % (Auto) 70 Lymph % (Auto) 9 L [place] % (Auto) 14 H Eos % (Auto) 5 Baso % (Auto) 0 Neut # (Auto) 7.4 Lymph # (Auto) 0.9 L [place] # (Auto) 1.4 H Eos # (Auto) 0.5 Baso # (Auto) 0.0 Immature Gran # (Auto) 0.16 H Absolute Nucleated RBC 0.00 Immature Gran % 2 H Nucleated RBC % 0 Puncture Site Cancelled ABG pH Cancelled ABG pCO2 Cancelled ABG pO2 Cancelled ABG HCO3 Cancelled ABG O2 Saturation Cancelled ABG Base Excess Cancelled Oxygen Liter Flow Cancelled FiO2 Cancelled Sodium 151 H 147 H Potassium 3.9 4.3 Chloride 107 108 H Carbon Dioxide 38.6 H 34.8 H Anion Gap 5 L 4 L BUN 47 H 46 H Creatinine 1.6 H 1.4 H Estim Creat Clear Calc 85.4 97.6 eGFR 48 L 56 L BUN/Creatinine Ratio 29 H 33 H Glucose [address] Glu mg/dL 171 H Hemoglobin A1c 7.6 H Calculated Osmolality 320 H 313 H Calcium 9.2 8.7 Corrected Calcium 9.6 9.3 Phosphorus 3.7 Magnesium 1.8 Total Bilirubin 0.7 AST 54 H ALT 54 H Alkaline Phosphatase 138 H Total Protein 6.1 Albumin 3.5 3.3 L Globulin 2.6 Albumin/Globulin Ratio 1.3 03/05/25 03/05/25 16:55 17:58 WBC RBC Hgb Hct MCV MCH MCHC RDW Std Deviation Plt Count Neut % (Auto) Lymph % (Auto) [place] % (Auto) Eos % (Auto) Baso % (Auto) Neut # (Auto) Lymph # (Auto) [place] # (Auto) Eos # (Auto) Baso # (Auto) Immature Gran # (Auto) Absolute Nucleated RBC Immature Gran % Nucleated RBC % Puncture Site Left Radial ABG pH 7.34 L D ABG pCO2 72 H* D ABG pO2 83 ABG HCO3 38 H ABG O2 Saturation 95 ABG Base Excess 9 H Oxygen Liter Flow FiO2 21 Sodium 145 Potassium 3.8 D Chloride 103 Carbon Dioxide 35.8 H Anion Gap 6 L BUN 46 H Creatinine 1.4 H Estim Creat Clear Calc 97.6 eGFR 56 L BUN/Creatinine Ratio 33 H Glucose [address] Glu mg/dL Hemoglobin A1c Calculated Osmolality 309 H Calcium 8.9 Corrected Calcium 9.4 Phosphorus 3.6 Magnesium Total Bilirubin AST ALT Alkaline Phosphatase Total Protein Albumin 3.4 Globulin Albumin/Globulin Ratio ABG Interpretation ABG results: 02/27/25 02/28/2525 06:55 04:57 04:39 ABG pH 7.27 L 7.37 D 7.41 ABG pCO2 57 H 48 44 ABG pO2 101 78 L D 69 L ABG HCO3 26 28 H 28 H ABG O2 Saturation 98 95 93 ABG Base Excess -2 2 3 03/01/25 03/01/25 03/02/25 13:15 14:52 04:25 ABG pH Cancelled 7.41 7.45 ABG pCO2 Cancelled 45 42 ABG pO2 Cancelled 53 L* 66 L ABG HCO3 Cancelled 28 H 29 H ABG O2 Saturation Cancelled 85 L 92 ABG Base Excess Cancelled 3 5 H 03/03/25 03/05/25 03/05/25 04:40 16:30 16:55 ABG pH 7.45 Cancelled 7.34 L D ABG pCO2 43 Cancelled 72 H* D ABG pO2 72 L Cancelled 83 ABG HCO3 30 H Cancelled 38 H ABG O2 Saturation 94 Cancelled 95 ABG Base Excess 5 H Cancelled 9 H Quality Measures Quality Measures sepsis Current suspected stage: ruled out Possible source: pulmonary Blood cultures ordered: completed in ED Antibiotic ordered: Yes Advance care planning discussed with:: patient Assessment & Plan Assessment Current Active Medications: Generic Name Dose Route Start Last Admin Trade Name Freq PRN Reason Stop Dose Admin Acetaminophen 650 mg 02/27/25 09:24 Acetaminophen 325 Mg Tablet PO 03/29/25 09:23 Q4HR PRN PAIN SCALE 1-3 (mild Al Hydrox/Mg Hydrox/Simethicone 30 ml 02/27/25 09:24 Mg Hyd/Al Hyd/Virgilio (Maalox Reg) Susp 30 Ml Udc PO 03/29/25 09:23 Q4HR PRN Heartburn or Upset Stomach Amiodarone HCl 200 mg 03/01/25 09:00 03/05/25 09:51 Amiodarone Hcl 200 Mg Tablet PO 03/31/25 08:59 200 mg QDAY KOURTNEY Administration Dextrose 25 ml 03/03/25 08:20 Dextrose 50%-Water Inj 50 Ml Syringe IV 04/02/25 08:19 Q15MIN PRN BG 50-70 responsive npo pt Dextrose 50 ml 03/03/25 08:20 Dextrose 50%-Water Inj 50 Ml Syringe IV 04/02/25 08:19 Q15MIN PRN BG <50 OR BG <70 & pt unresponsive Glucagon 1 mg 03/03/25 08:20 Glucagon Inj 1 Mg Vial IM Q15MIN PRN BG <70, and no IV access Ceftriaxone Sodium/Dextrose 1 gm in 50 mls @ 100 mls/hr 03/01/25 10:19 03/05/25 09:51 Rocephin/D5w 1gm Iv Premix IV 03/06/25 10:18 100 mls/hr QDAY KOURTNEY Administration Insulin Glargine 14 unit 03/05/25 21:00 Insulin Glargine (Lantus) 5 Unit/0.05 Ml (Per 5 Units) SC 04/04/25 20:59 HS KOURTNEY Insulin Human Lispro 0 unit 03/03/25 11:30 03/05/25 17:36 Insulin Lispro (Admelog) 1 Unit/0.01 Ml Unit SC 04/02/25 11:29 2 unit AC KOURTNEY Administration Protocol Magnesium Hydroxide 30 ml 02/27/25 09:24 Milk Of Magnesia Susp 30 Ml Udc PO 03/29/25 09:23 QDAY PRN CONSTIPATION Metoprolol Succinate 100 mg 03/03/25 21:00 03/05/25 09:50 Metoprolol Succinate Xl 25 Mg Tabcr PO 04/02/25 20:59 100 mg BID KOURTNEY Administration Pantoprazole Sodium 40 mg 02/27/25 11:15 03/05/25 09:52 Pantoprazole Inj 40 Mg Vial IV 03/29/25 11:14 40 mg QDAY KOURTNEY Administration Rivaroxaban 20 mg 03/04/25 17:30 03/05/25 17:06 Rivaroxaban 10 Mg Tablet PO 04/03/25 17:29 Not Given WSUPPER KOURTNEY Plan Plan 64-year-old male with significant past medical history of hypertension, diabetes mellitus, A-fib was admitted to the ICU on 02/27/2025 after coming in with altered mental status and shortness of breath, intubated for acute hypoxic respiratory failure and had suspected obesity hypoventilation syndrome/obstructive sleep apnea/pneumonia and acute kidney injury. Subsequently downgraded and cardiology has been consulted for suspected heart failure. #Right congestive heart failure #Possible cardiorenal syndrome Echo on this admission showed poor quality images secondary to the patient's body habitus so was a technically limited study. Patient is comfortably laying flat without experiencing increased shortness of breath. He is requiring supplemental O2 at 5-6L. Suspect chronic right heart failure in the setting of chronic obesity hypoventilation syndrome and obstructive sleep apnea. There is diffuse anasarca, which was worse on admission. After receiving diuresis has been improving. -hold diuresis with bumetanide 2 mg IV BID, due to contraction alkalosis -evidence has shown that adding acetazolamide in combination with a loop diuretic has shown to be beneficial and prevention of C.A. -Consider adding spironolactone when KENIA improves -Continue with BiPAP therapy at night -Monitor strict I&Os -Limit sodium intake -Fluid restrictions #Atrial fibrillation, rate controlled Patient notes positive history of afib. He had previously been on metoprolol succinate 100 mg BID. Currently appears rate-controlled in the 100s. [id number] score 4 -Continue with home metoprolol succinate 100 mg BID -Continue with amiodarone 200 mg qday -Patient may be started on anticoagulation if there are no contraindications, agree with Xarelto 20 mg qday -Keep potassium >4.0 and mag >2.0 Rest of conditions to continue current management per primary team: #Acute hypoxic respiratory failure #Morbid obesity #OHS/BASIA #Community acquired pneumonia #Elevated LFTs #Hyperbilirubinemia #History of type 2 diabetes #Lactic acidosis #KENIA on CKD - Patient's care was discussed with my attending physician, Dr. Alvaro Parikh MD Internal Medicine PGY-3
--- NOTE | 2025-03-05 20:46 | EKG_ITS ---
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
[2025-03-05] MEDS: ONDANSETRON INJ 2 MG/ML INJ 2 ML 4 MG IV (20:55)
--- NOTE | 2025-03-05 23:09 | XR_ITS ---
Examination: AP chest single view Technique: AP portable semiupright chest single view Exam date and time: March 05, 2025 11:20 PM Comparison March 03, 2025 Indications: Tachypnea today. Findings: Extensive bilateral lung opacity Mild enlargement cardiac contour prominent vascular congestion Ectatic thoracic aorta Impression: Extensive bilateral pneumonia and/or pulmonary edema again noted
[2025-03-05] MEDS: INSULIN GLARGINE (Lantus) 5 UNIT/0.05 ML (PER 5 UNITS) 14 UNIT SC (23:28)
[2025-03-05] MEDS: ALBUTEROL/IPRATROPIUM (Duoneb) RT SOL 3 ML NEBU INH (23:50)
[2025-03-05 23:51] LABS: Base Excess 10 (-3-3); HCO3 38 mEq/L (20-26); Inspired Oxygen, FIO2 50 %; O2 Saturation 99 % (91-98); PCO2 67 mmHg (32.0-48.0); PO2 150 mmHg (83-108); pH, Arterial 7.37 (7.35-7.45)
[2025-03-05 23:54] LABS: Allen Test Performed/OK; Puncture Site Right Radial
[2025-03-06] VITALS (134 sets, daily range): BP systolic 82–143; BP diastolic 47–97; PULSE 84–121; RESP 0–44; TEMP 35.9–37.3; O2SAT 87–100; BMI 78.7
--- NOTE | 2025-03-06 00:14 | EVENTNT_ITS ---
Documentation for date of: 03/06/25 Event Note Event Note: Around 1130 p.m., RN called the night hospitalist team about the concern regarding the patient's RR in 50s. We responded immediately, and the patient's RR was fluctuating between 50s to 60s. The patient was on BiPAP, with IPAP of 10 and EPAP of 5. IPAP was increased to 16 and EPAP increased to 6. His RR decreased to 40s. Chest exam did not reveal any wheezing or rhonchi, likely due to body habitus. ABG, CXR, CMP and electrolytes with ordered including lactic acid. ABG revealed improvement on pCO2 with 67, previously it was 72. DuoNeb 3 mL INH x 1 was given, further decreasing the RR to 20s. Levalbuterol and ipra tropium INH was scheduled every 4 hourly. We will follow-up on other blood works. Also ordered ABG an hour following the BiPAP setting changes. The patient's management plan was discussed with my attending physician MD Isaac Cox MD, PGY2
[2025-03-06 00:29] LABS: Lactate (Lactic Acid) 1.4 mMol/L (0.4-2.0)
[2025-03-06 00:30] LABS: Basophils % (Auto) 0 % (0-2.5); Eosinophils # (Auto) 0.4 Thou/mm3 (0.0-0.5); Eosinophils % (Auto) 3 % (0-10); Hematocrit 43.1 % (41.0-53.0); Hemoglobin 13.4 g/dL (13.5-16.0); Immature Granulocytes % (Auto) 1 % (0-0); Immature Granulocytes Auto 0.13 Thou/mm3 (0.00-0.00); Lymphocytes # (Auto) 0.9 Thou/mm3 (1.0-4.8); Lymphocytes % (Auto) 7 % (10-50); Mean Corpuscular HGB Conc 31.1 g/dl (31.0-37.0); Mean Corpuscular Hemoglobin 28.1 pg (25.0-35.0); Mean Corpuscular Volume 90 fL (80-100); Monocytes # (Auto) 1.5 Thou/mm3 (0.0-0.8); Monocytes % (Auto) 11 % (0-12); Neutrophils # (Auto) 10.5 Thou/mm3 (1.8-7.7); Neutrophils % (Auto) 78 % (37-80); Nucleated Red Blood Cell % 0 /100 WBC (0); Platelet Count 355 Thou/mm3 (140-440); RDW Standard Deviation 46.8 fL (35.1-43.9); Red Blood Count 4.77 Miln/mm3 (4.50-5.90); White Blood Count 13.5 Thou/mm3 (3.8-10.6)
[2025-03-06] MEDS: DOXYCYCLINE INJ 100 MG in SODIUM CHLORIDE 0.9% (POP) 100 ML IV ×2 (01:02→08:46)
[2025-03-06 01:57] LABS: Base Excess 11 (-3-3); HCO3 40 mEq/L (20-26); Inspired Oxygen, FIO2 21 %; O2 Saturation 96 % (91-98); PCO2 74 mmHg (32.0-48.0); PO2 88 mmHg (83-108); pH, Arterial 7.34 (7.35-7.45)
[2025-03-06 02:02] LABS: Allen Test Performed/OK; Puncture Site Right Radial
[2025-03-06 02:15] LABS: Alanine Aminotransferase 46 U/L (10-49); Albumin, Serum 3.4 gm/dL (3.4-4.8); Albumin/Globulin Ratio 1.3 (1.2-2.2); Alkaline Phosphatase 134 U/L (46-116); Anion Gap 8 (7-16); Aspartate Amino Transferase 39 U/L (0-34); BUN/Creatinine Ratio 32 Ratio (12-20); Bilirubin,Total 0.7 mg/dL (0.3-1.2); Blood Urea Nitrogen 45 mg/dL (9-23); Calcium (Corrected) 9.5 mg/dL (8.5-10.1); Carbon Dioxide 32.4 mMol/L (20.0-31.0); Chloride 105 mMol/L (98-107); Creatinine (Component) 1.4 mg/dL (0.6-1.3); Estimated Creatinine Clearance 97.6 mL/min (>60); Globulin 2.6 gm/dL (2.3-3.5); Glucose 225 mg/dL (74-106); Osmolality,Calculated 307 (275-295); Potassium 3.7 mMol/L (3.4-5.1); Sodium 145 mMol/L (136-145); eGFR 56 See Note
[2025-03-06] MEDS: Magnesium Sulfate 2 GM Ivpb 2 GM/50 ML BAG IV (02:23)
--- NOTE | 2025-03-06 02:57 | PC.NURSE ---
Earlier a rapid response was called for patient on Bipap having increased RR in 40-60s and change in mental status/lethargic. ABG and other labs ordered as well as CXR. A few hours later, ABG was worse and patient was transferred to ICU for intubation. Report given to FLIP Lazaro.
--- NOTE | 2025-03-06 03:00 | ESCONSULT_ITS ---
HPI Data of Consult Requesting Physician: Pavel Mendoza MD Admitting Provider: Angelique Maxwell MD Attending Provider: Pavel Mendoza MD Primary Care Provider: Physician No Primary/Family Consult Narrative History of present illness: 64-year-old male with past medical history of DM2, hypertension, and A-fib was admitted to the ICU on 02/27/2025 after coming to the ED with complaints of altered mental status and shortness of breath. Patient was intubated in the ED therefore most of the history was taken from chart review and from the parents who are at bedside. Patient's parents stated that yesterday morning patient could not get up from his chair and then later that evening/night he started getting confused and was not making sense when he was seen. This morning EMS found the patient on the floor and he was saturating in the 70s even on high flow nasal cannula. Given his hypoxia patient was intubated in the ED. As per parents were at bedside they stated that prior to this patient was able to walk around, but that since yesterday morning he was unable to walk. On assessment patient was intubated, but was still able to answer yes or no questions. He was also able to follow commands. Patient spiked a fever while in the ED and he became hypotensive unresponsive to IV fluids therefore he was placed on vasopressors. 02/28/2025: Patient was seen examined at bedside this morning. Overnight patient did spike a fever of 100.4 and he had no measurable urine output. Patient placed on amio drip overnigth. He was also given Bumex 1 mg x 1 overnight to see if he had better urine output, but none was measured. Today's patient's chest x-ray this looks like it is improving and he did have wet pants and some urine in the pure wick catheter. Will start patient on Bumex drip at 1 mg and will monitor patient's daily weights. Patient was on very low-dose of Levophed therefore we will start patient on midodrine 10 mg every 6 hours and wean off Levophed entirely. Patient is nasogastric tube was not visualized had x-ray, but on auscultation air was audible in the stomach when hand was placed through the nasogastric tube. Will discontinue patient's vancomycin and Zosyn if his MRSA is negative and will transition to azithromycin and Rocephin. 03/01/2025: Patient seen and examined at bedside this morning. Overnight patient went into A-fib with RVR and he finishes bolus of amiodarone. Patient had a documented urine output of 150, but that she states 1 were very wet. His Bumex drip finished overnight and they were not able to start more Bumex drip as there was not available in the pharmacy overnight. Patient's weight did go down from 249 to 247 kg. Blood cultures have been negative in 48 hours and MRSA nares negative. Will discontinue vancomycin and Zosyn and will start azithromycin and Rocephin. Patient's ventilator requirements have been unchanged, but has been saturating in the 94% therefore we will try and wean down on oxygen requirements. His blood pressure has been stable off Levophed and only on midodrine. His kidney function has been worsening, but expect improvement with more diuresis. Started Amiodarone 200mg qday. 03/02/2025: No overnight events, todays weight 246, we will continue bumex drip. NIF today as -12, we will re-evaluate tomorrow to attempt extubation. Midodrine decreased to 5 q6hr 03/03/2025: Patient was seen examined at bedside this morning. No acute overnight events. Patient was taken off the Precedex yesterday night. Today's weight is 242 kg. Succesfull extubation today, will transition to bipap. 03/06/2025: Was notified by floors team that patient is tachypneic in the 40s with increased work of breathing, confusion, and agitation. He was AAOx 1 (name) and saying leave me alone. He continues to pull at his BIPAP and had to be restrained, with a sitter at bedside. His BIPAP settings were uptitrated from 10/5 to 16/6 without significant improvement of PCO2. Repeat ABG showed pH 7.37 with CO2 at 74. Floor team attempted to notify family with no answer. He remains confused and agitated. Patient to be intubated due to worsening respiratory effort. cc:: cc: Pavel Mendoza MD Review of Systems Review of Systems Systems Reviewed: All systems reviewed, normal except as documented ROS Unobtainable: unobtainable due to mental status Exam Vital Signs Temp Pulse Resp BP Pulse Ox O2 Del Method O2 Flow Rate 96.7 F L 106 H 21 H 129/86 H 97 BiPAP 15 03/06/25 00:00 03/06/25 00:00 03/06/25 00:00 03/06/25 00:00 03/06/25 00:00 03/06/25 00:00 03/05/25 16:00 FiO2 50 03/05/25 22:40 Narrative Exam Constitutional: Intubated, sedated. HEENT: NCAT. Pupils pinpoint sluggish to light. Respiratory: Distant breath sounds. Cardiac: Irregular irregular, tachycardic. Abdomen: Soft, non-distended. MSK: Ansarcic. 3+ B/L LE edema Lines: PIV, ET, Fuller Results Labs 03/05/25 04:38 03/06/25 00:13 Labs: Short CBC 03/05/25 03/05/25 Range/Units 00:13 04:38 WBC 13.5 H 10.5 (3.8-10.6) Thou/mm3 Hgb 13.4 L 14.3 (13.5-16.0) g/dL Hct 43.1 45.4 (41.0-53.0) % Plt Count 355 D 295 D (140-440) Thou/mm3 BMP 03/05/25 03/05/25 03/05/25 04:38 16:53 17:58 Sodium 151 H 147 H 145 Potassium 3.9 4.3 3.8 D Chloride 107 108 H 103 Carbon Dioxide 38.6 H 34.8 H 35.8 H BUN 47 H 46 H 46 H Creatinine 1.6 H 1.4 H 1.4 H Glucose 242 H 262 H 253 H Calcium 9.2 8.7 8.9 03/06/25 00:13 Sodium 145 Potassium 3.7 Chloride 105 Carbon Dioxide 32.4 H BUN 45 H Creatinine 1.4 H Glucose 225 H Calcium 9.0 Liver Function 03/05/25 03/05/25 03/05/25 Range/Units 04:38 16:53 17:58 Total Bilirubin 0.7 (0.3-1.2) mg/dL AST 54 H (0-34) U/L ALT 54 H (10-49) U/L Alkaline Phosphatase 138 H (46-116) U/L Albumin 3.5 3.3 L 3.4 (3.4-4.8) gm/dL 03/06/25 Range/Units 00:13 Total Bilirubin 0.7 (0.3-1.2) mg/dL AST 39 H (0-34) U/L ALT 46 (10-49) U/L Alkaline Phosphatase 134 H (46-116) U/L Albumin 3.4 (3.4-4.8) gm/dL ABG Interpretation ABG results: 02/27/25 02/28/25 03/01/25 06:55 04:57 04:39 ABG pH 7.27 L 7.37 D 7.41 ABG pCO2 57 H 48 44 ABG pO2 101 78 L D 69 L ABG HCO3 26 28 H 28 H ABG O2 Saturation 98 95 93 ABG Base Excess -2 2 3 03/01/25 03/01/25 03/02/25 13:15 14:52 04:25 ABG pH Cancelled 7.41 7.45 ABG pCO2 Cancelled 45 42 ABG pO2 Cancelled 53 L* 66 L ABG HCO3 Cancelled 28 H 29 H ABG O2 Saturation Cancelled 85 L 92 ABG Base Excess Cancelled 3 5 H 03/03/25 03/05/25 03/05/25 04:40 16:30 16:55 ABG pH 7.45 Cancelled 7.34 L D ABG pCO2 43 Cancelled 72 H* D ABG pO2 72 L Cancelled 83 ABG HCO3 30 H Cancelled 38 H ABG O2 Saturation 94 Cancelled 95 ABG Base Excess 5 H Cancelled 9 H 03/05/25 03/06/25 23:36 01:48 ABG pH 7.37 7.34 L ABG pCO2 67 H 74 H* ABG pO2 150 H D 88 D ABG HCO3 38 H 40 H ABG O2 Saturation 99 H 96 ABG Base Excess 10 H 11 H Quality Measures Quality Measures sepsis Current suspected stage: ruled out Possible source: pulmonary Blood cultures ordered: completed in ED Antibiotic ordered: No Advance care planning discussed with:: other Medications Home Medications and Allergies Home Medications ?Medication ?Instructions ?Recorded ?Confirmed ?Type amlodipine 10 mg tablet 10 mg PO 1XD 02/27/25 History gabapentin 600 mg tablet 600 mg PO 3XD 02/27/2502/27 History glipizide 10 mg tablet 10 mg PO 1XD 02/27/25 History losartan 25 mg tablet 25 mg PO 1XD 02/27/25 History metformin 1,000 mg tablet 1,000 mg PO 2XD 02/27/25 History metoprolol succinate 100 mg 100 mg PO 2XD 02/27/25 History tablet,extended release 24 hr tramadol 50 mg tablet 50 mg PO 3XD 02/27/25 History Allergies Allergy/AdvReac Type Severity Reaction Status Date / Time No Known Allergies Allergy Verified 02/27/25 06:45 Visit Medications Acetaminophen (Acetaminophen 325 Mg Tablet) 650 mg PO Q4HR PRN PRN Reason: PAIN SCALE 1-3 (mild Stop: 03/29/25 09:23 Al Hydrox/Mg Hydrox/Simethicone (Mg Hyd/Al Hyd/Virgilio (Maalox Reg) Susp 30 Ml Udc) 30 ml PO Q4HR PRN PRN Reason: Heartburn or Upset Stomach Stop: 03/29/25 09:23 Amiodarone HCl (Amiodarone Hcl 200 Mg Tablet) 200 mg PO QDAY [facility] Stop: 03/31/25 08:59 Last Admin: 03/05/25 09:51 Dose: 200 mg Dextrose (Dextrose 50%-Water Inj 50 Ml Syringe) 25 ml IV Q15MIN PRN PRN Reason: BG 50-70 responsive npo pt Stop: 04/02/25 08:19 Dextrose (Dextrose 50%-Water Inj 50 Ml Syringe) 50 ml IV Q15MIN PRN PRN Reason: BG <50 OR BG <70 & pt unresponsive Stop: 04/02/25 08:19 Etomidate (Etomidate Inj 2 Mg/Ml Vial 10 Ml) 20 mg IV X1 ONE Stop: 03/06/25 02:54 Glucagon (Glucagon Inj 1 Mg Vial) 1 mg IM Q15MIN PRN PRN Reason: BG <70, and no IV access Ceftriaxone Sodium/Dextrose (Rocephin/D5w 1gm Iv Premix) 1 gm in 50 mls @ 100 mls/hr IV QDAY [facility] Stop: 03/06/25 10:18 Last Admin: 03/05/25 09:51 Dose: 100 mls/hr Doxycycline Hyclate 100 mg/ (Sodium Chloride) 100 mls @ 100 mls/hr IV BID [facility] Stop: 03/12/25 23:29 Last Admin: 03/06/25 01:02 Dose: 100 mls/hr Propofol (Diprivan Ivpb) 1,000 mg in 100 mls @ 6.967 mls/hr IV .[id number] PRN; Protocol PRN Reason: PER PROTOCOL Stop: 04/05/25 02:56 Fentanyl Citrate (Sublimaze Inj 2,500 Mcg/250 Ml Bag) 2,500 mcg in 250 mls @ 2.5 mls/hr IV .Q24H PRN; Protocol PRN Reason: PER PROTOCOL Stop: 03/11/25 02:57 Insulin Glargine (Insulin Glargine (Lantus) 5 Unit/0.05 Ml (Per 5 Units)) 14 unit SC [facility] Stop: 04/04/25 20:59 Last Admin: 03/05/25 23:28 Dose: 14 unit Insulin Human Lispro (Insulin Lispro (Admelog) 1 Unit/0.01 Ml Unit) 0 unit SC [facility]; Protocol Stop: 04/04/25 23:14 Last Admin: 03/05/25 23:27 Dose: 2 unit Ipratropium [place] (Ipratropium Rt 0.5 Mg/ 2.5 Ml Nebu) 0.5 mg INH Q4H [facility] Stop: 04/05/25 03:59 Levalbuterol HCl (Levalbuterol Rt 0.63 Mg/3 Ml Nebu) 1.25 mg INH Q4H [facility] Stop: 04/05/25 03:59 Magnesium Hydroxide (Milk Of Magnesia Susp 30 Ml Udc) 30 ml PO QDAY PRN PRN Reason: CONSTIPATION Stop: 03/29/25 09:23 Metoprolol Succinate (Metoprolol Succinate Xl 25 Mg Tabcr) 100 mg PO BID [facility] Stop: 04/02/25 20:59 Last Admin: 03/05/25 20:57 Dose: 100 mg Ondansetron HCl (Ondansetron Inj 2 Mg/Ml Inj 2 Ml) 4 mg IV Q6HR PRN; Protocol PRN Reason: NAUSEA OR VOMITING Stop: 04/04/25 20:45 Last Admin: 03/05/25 20:55 Dose: 4 mg Pantoprazole Sodium (Pantoprazole Inj 40 Mg Vial) 40 mg IV QDAY [facility] Stop: 03/29/25 11:14 Last Admin: 03/05/25 09:52 Dose: 40 mg Rivaroxaban (Rivaroxaban 10 Mg Tablet) 20 mg PO WSUPPER [facility] Stop: 04/03/25 17:29 Last Admin: 03/05/25 17:06 Dose: Not Given Rocuronium [place] (Rocuronium Inj 10 Mg/Ml Vial 10 Ml) 100 mg IV X1 ONE Stop: 03/06/25 02:54 Discontinued Medications Acetaminophen (Acetaminophen Supp 650 Mg Supp) 650 mg CA Q4HR PRN PRN Reason: PAIN SCALE 1-3 (mild Stop: 03/29/25 09:23 Albuterol/Ipratropium (Albuterol/Ipratropium (Duoneb) Rt Gloria 3 Ml Nebu) 3 ml INH X1 ONE Stop: 03/05/25 23:11 Last Admin: 03/05/25 23:50 Dose: 3 ml Bumetanide (Bumetanide Inj 0.25 Mg/Ml Vial 4 Ml) 1 mg IV X1 ONE Stop: 02/27/25 21:42 Last Admin: 02/27/25 22:11 Dose: 1 mg Bumetanide (Bumetanide Inj 0.25 Mg/Ml Vial 4 Ml) 2 mg IVP BID [facility] Stop: 04/03/25 08:59 Last Admin: 03/05/25 09:51 Dose: 2 mg Bumetanide (Bumetanide Inj 0.25 Mg/Ml Vial 4 Ml) 1 mg IVP BID [facility] Stop: 04/04/25 20:59 Diphenhydramine HCl (Diphenhydramine Elix 25 Mg/10 Ml [facility] [place]) 12.5 mg PO X1 ONE Stop: 03/05/25 00:34 Last Admin: 03/05/25 01:30 Dose: Not Given Enoxaparin Sodium (Enoxaparin Sod Inj 40 Mg/0.4 Ml Syringe) 40 mg SC QDAY [facility] Stop: 03/14/25 08:59 Enoxaparin Sodium (Enoxaparin Sod Inj 40 Mg/0.4 Ml Syringe) 40 mg SC Q12HR [facility] Stop: 03/13/25 20:59 Last Admin: 03/04/25 08:14 Dose: 40 mg Enoxaparin Sodium (Enoxaparin Sod Inj 60 Mg/0.6 Ml Syringe) 60 mg SC Q12HR [facility] Stop: 03/18/25 20:59 Etomidate (Etomidate Inj 2 Mg/Ml Vial 10 Ml) 20 mg IVP X1 ONE Stop: 02/27/25 06:13 Last Admin: 02/27/25 06:14 Dose: 20 mg Etomidate (Etomidate Inj 2 Mg/Ml Vial 10 Ml) 20 mg IVP X1 ONE Stop: 02/27/25 07:39 Last Admin: 02/27/25 07:44 Dose: 20 mg Etomidate (Etomidate Inj 2 Mg/Ml Vial 10 Ml) 70 mg 0.3 mg/kg (70 mg) IV X1 ONE Stop: 03/06/25 02:54 Famotidine (Famotidine Inj 10 Mg/Ml Vial 2 Ml) 20 mg IVP QDAY [facility] Stop: 03/30/25 08:59 Furosemide (Furosemide Inj 10 Mg/Ml 4ml Vial) 60 mg IVP X1 ONE Stop: 02/27/25 16:13 Last Admin: 02/27/25 17:03 Dose: 60 mg Sodium Chloride (Ns) 1,000 mls @ 999 mls/hr IV .Q1H1M ONE Stop: 02/27/25 07:19 Last Infusion: 02/27/25 09:25 Dose: Infused Sodium Chloride (Ns) 1,000 mls @ 999 mls/hr IV .Q1H1M ONE Stop: 02/27/25 07:21 Last Infusion: 02/27/25 07:23 Dose: Infused Norepinephrine/Dextrose (Levophed In D5w 8mg/250ml) 8 mg in 250 mls @ 21.577 mls/hr IV .[id number] PRN; Protocol PRN Reason: PER PROTOCOL Stop: 03/29/25 06:57 Last Titration: 02/28/25 13:49 Dose: 0 mcg/kg/min, 0 mls/hr Sodium Chloride (Ns) 1,000 mls @ 999 mls/hr IV .Q1H1M ONE Stop: 02/27/25 08:01 Last Infusion: 02/27/25 09:25 Dose: Infused Sodium Chloride (Ns) 1,000 mls @ 999 mls/hr IV .Q1H1M ONE Stop: 02/27/25 08:18 Last Infusion: 02/27/25 09:25 Dose: Infused Ceftriaxone Sodium/Dextrose (Rocephin/D5w 1gm Iv Premix) 1 gm in 50 mls @ 100 mls/hr IV X1 ONE Stop: 02/27/25 07:47 Last Infusion: 02/27/25 09:25 Dose: Infused Acetaminophen (Ofirmev Inj) 1,000 mg in 100 mls @ 250 mls/hr IV X1 ONE Stop: 02/27/25 10:42 Last Infusion: 02/27/25 11:12 Dose: Infused Piperacillin Sod/Tazobactam (Sod 4.5 gm/ Sodium Chloride) 100 mls @ 200 mls/hr IV Q6HR [facility] Stop: 03/06/25 14:22 Last Admin: 02/28/25 05:34 Dose: 200 mls/hr Vancomycin HCl 2,000 mg/ (Sodium Chloride) 500 mls @ 150 mls/hr IV X1 ONE Stop: 02/27/25 18:19 Last Admin: 02/27/25 15:22 Dose: 150 mls/hr Amiodarone HCl/Dextrose (Nexterone Ivpb) 150 mg in 100 mls @ 600 mls/hr IV .Q10M ONE Stop: 02/27/25 19:36 Last Infusion: 02/27/25 19:47 Dose: Infused Amiodarone HCl/Dextrose (Nexterone Ivpb) 360 mg in 200 mls @ 33.333 mls/hr IV .Q6H ONE Stop: 02/28/25 01:36 Last Admin: 02/27/25 19:46 Dose: 33.333 mls/hr Amiodarone HCl/Dextrose (Nexterone Ivpb) 360 mg in 200 mls @ 16.667 mls/hr IV .Q12H [facility] Stop: 03/01/25 01:36 Last Admin: 02/28/25 13:56 Dose: 16.667 mls/hr Vancomycin HCl (Vancomycin/Water 1250 Mg Ivpb) 250 mls @ 120 mls/hr IV X1 ONE Stop: 02/28/25 12:04 Last Admin: 02/28/25 10:02 Dose: 120 mls/hr Piperacillin Sod/Tazobactam (Sod 4.5 gm/ Sodium Chloride) 100 mls @ 25 mls/hr IV Q8HR [facility]; Protocol Stop: 03/07/25 13:59 Last Admin: 03/01/25 05:26 Dose: 25 mls/hr Bumetanide 20 mg/ IV (Miscellaneous Supplies) 80 mls @ 4 mls/hr IV .Q20H [facility] Stop: 03/01/25 07:03 Last Admin: 02/28/25 12:11 Dose: 1 mg/hr, 4 mls/hr Vancomycin HCl (Vancomycin/Water 1250 Mg Ivpb) 250 mls @ 120 mls/hr IV X1 ONE Stop: 03/01/25 12:04 Last Admin: 03/01/25 08:58 Dose: 120 mls/hr Bumetanide 20 mg/ IV (Miscellaneous Supplies) 80 mls @ 8 mls/hr IV .Q10H [facility] Stop: 03/02/25 04:33 Last Admin: 03/02/25 02:26 Dose: 2 mg/hr, 8 mls/hr Azithromycin 500 mg/ Sodium (Chloride) 250 mls @ 250 mls/hr IV QDAY [facility] Stop: 03/03/25 10:18 Last Admin: 03/03/25 09:20 Dose: 250 mls/hr Dexmedetomidine/Sodium Chloride (Precedex Ivpb) 400 mcg in 100 mls @ 12.34 mls/hr IV .Q8H7M PRN; Protocol PRN Reason: Per PROTOCOL Stop: 03/31/25 18:13 Dexmedetomidine/Sodium Chloride (Precedex Ivpb) 200 mcg in 50 mls @ 12.34 mls/hr IV .Q4H4M PRN; Protocol PRN Reason: Per PROTOCOL Stop: 03/31/25 18:25 Last Titration: 03/03/25 02:00 Dose: 0 mcg/kg/hr, 0 mls/hr Bumetanide 20 mg/ IV (Miscellaneous Supplies) 80 mls @ 8 mls/hr IV .Q10H [facility] Stop: 03/03/25 08:51 Last Admin: 03/02/25 23:36 Dose: 2 mg/hr, 8 mls/hr Albumin Human (Albuminar-25 Ivpb) 12.5 gm in 50 mls @ 50 mls/hr IV X1 ONE Stop: 03/03/25 09:47 Last Admin: 03/03/25 09:17 Dose: 50 mls/hr Bumetanide 20 mg/ IV (Miscellaneous Supplies) 80 mls @ 8 mls/hr IV .Q10H [facility] Stop: 03/04/25 05:15 Last Admin: 03/03/25 20:06 Dose: 2 mg/hr, 8 mls/hr Potassium Chloride (Kcl Ivpb) 10 meq in 100 mls @ 100 mls/hr IV Q1H [facility] Stop: 03/03/25 13:21 Last Admin: 03/03/25 14:47 Dose: Not Given Potassium Chloride (Kcl Ivpb) 10 meq in 100 mls @ 100 mls/hr IV X1 ONE Stop: 03/03/25 15:42 Last Admin: 03/03/25 14:48 Dose: 100 mls/hr Magnesium Sulfate (Magnesium Sulfate Ivpb) 2 gm in 50 mls @ 25 mls/hr IV X1 ONE Stop: 03/04/25 12:13 Last Admin: 03/04/25 11:46 Dose: 25 mls/hr Magnesium Sulfate (Magnesium Sulfate Ivpb) 2 gm in 50 mls @ 25 mls/hr IV X1 ONE Stop: 03/05/25 10:08 Last Admin: 03/05/25 10:02 Dose: 25 mls/hr Acetazolamide Sodium 250 mg/ (Sodium Chloride) 50 mls @ 100 mls/hr IV X1 ONE Stop: 03/05/25 10:52 Last Admin: 03/05/25 12:26 Dose: 100 mls/hr Magnesium Sulfate (Magnesium Sulfate Ivpb) 2 gm in 50 mls @ 25 mls/hr IV X1 ONE Stop: 03/06/25 01:42 Last Admin: 03/06/25 02:23 Dose: 25 mls/hr Insulin Glargine (Insulin Glargine (Lantus) 5 Unit/0.05 Ml (Per 5 Units)) 6 unit SC HS [facility] Stop: 04/03/25 20:59 Insulin Glargine (Insulin Glargine (Lantus) 5 Unit/0.05 Ml (Per 5 Units)) 8 unit SC HS [facility] Stop: 04/03/25 20:59 Last Admin: 03/04/25 21:14 Dose: 8 unit Insulin Glargine (Insulin Glargine (Lantus) 5 Unit/0.05 Ml (Per 5 Units)) 12 unit SC HS [facility] Stop: 04/04/25 20:59 Insulin Human Lispro (Insulin Lispro (Admelog) 1 Unit/0.01 Ml Unit) 0 unit SC AC [facility]; Protocol Stop: 04/02/25 11:29 Last Admin: 03/05/25 17:36 Dose: 2 unit Ipratropium [place] (Ipratropium Rt 0.5 Mg/ 2.5 Ml Nebu) 0.5 mg INH Q8HR [facility] Stop: 04/05/25 05:59 Levalbuterol HCl (Levalbuterol Rt 0.63 Mg/3 Ml Nebu) 0.63 mg INH Q8HR [facility] Stop: 04/05/25 05:59 Melatonin (Melatonin 3 Mg Tablet) 3 mg PO X1 ONE Stop: 03/04/25 21:01 Last Admin: 03/04/25 21:12 Dose: 3 mg Metoprolol Succinate (Metoprolol Succinate Xl 25 Mg Tabcr) 50 mg PO BID [facility] Stop: 04/01/25 09:29 Last Admin: 03/03/25 09:21 Dose: 50 mg Metoprolol Succinate (Metoprolol Succinate Xl 25 Mg Tabcr) 50 mg PO X1 ONE Stop: 03/03/25 13:17 Last Admin: 03/03/25 14:49 Dose: 50 mg Metoprolol Tartrate (Metoprolol Tartrate Inj 1 Mg/Ml Amp 5 Ml) 5 mg IVP X1 ONE Stop: 03/01/25 18:37 Last Admin: 03/01/25 18:41 Dose: 5 mg Midodrine (Midodrine 5 Mg Tablet) 10 mg PO Q6HR [facility] Stop: 03/30/25 11:59 Last Admin: 03/02/25 13:43 Dose: 10 mg Midodrine (Midodrine 5 Mg Tablet) 5 mg PO Q6HR [facility] Stop: 04/01/25 17:59 Last Admin: 03/04/25 11:28 Dose: Not Given Nitroglycerin (Nitroglycerin 0.4 Mg Subl Btl #25) 0.4 mg SL Q5MIN PRN PRN Reason: CHEST PAIN Pharmacy Consult (Vancomycin Pharmacy To Dose 1 Each Each) 1 each IV QDAY PRN PRN Reason: CONSULT Stop: 03/29/25 14:29 Potassium Chloride (Potassium Chloride 20 Meq Tabcr) 20 meq PO X1 ONE Stop: 03/03/25 14:43 Last Admin: 03/03/25 14:49 Dose: 20 meq Potassium Chloride (Potassium Chloride 20 Meq Tabcr) 40 meq PO X1 ONE Stop: 03/04/25 07:59 Last Admin: 03/04/25 08:56 Dose: 40 meq Potassium Chloride (Potassium Chloride 20 Meq Tabcr) 40 meq PO X1 ONE Stop: 03/05/25 08:10 Last Admin: 03/05/25 09:50 Dose: 40 meq Rocuronium [place] (Rocuronium Inj 10 Mg/Ml Vial 10 Ml) 100 mg IVP X1 ONE Stop: 02/27/25 06:13 Last Admin: 02/27/25 06:14 Dose: 100 mg Rocuronium [place] (Rocuronium Inj 10 Mg/Ml Vial 10 Ml) 100 mg IV X1 ONE Stop: 02/27/25 07:40 Last Admin: 02/27/25 07:44 Dose: 100 mg Rocuronium [place] (Rocuronium Inj 10 Mg/Ml Vial 10 Ml) 130 mg IV X1 ONE Stop: 03/06/25 02:54 Sodium Chloride (Sodium Chloride Rt 10% 15 Ml Nebu) 5 ml INH X1 ONE Stop: 02/27/25 14:39 Last Admin: 03/02/25 09:20 Dose: Not Given Sodium Polystyrene Sulfonate (Sod Polystyrene Sulfon Susp 15 Gm/60 Ml Btl) 30 gm PO X1 ONE Stop: 03/01/25 10:19 Last Admin: 03/01/25 10:58 Dose: 30 gm Assessment & Plan Plan 64-year-old male with past medical history of DM2, hypertension, and A-fib was admitted to the ICU on 02/27/2025 for shock and acute hypoxic respiratory failure. [facility] [employer]: Sedation: propofol, fentanyl RASS -2 #Acute encephalopathy likely due to hypercapnia CVS: #Shock, resolved #CHF Echo could not visualize all chambers and could not provide ejection fraction Continue bumex 1mg BID Cardiology following Fluid restrict Daily in and out #Hx of A-fib [id number] score of 3 points indicating 3.2% risk of stroke per year Has bled score of 0 Continue PO amiodarone 200 mg qday Continue metoprolol succinate 50 mg BID Continue xarelto 20mg Qday Cardiology following Respiratory: #Acute hypoxic and hypercapnic respiratory failure #Community-acquired pneumonia and BASIA/OHS Patient was intubated on 02/27/2025-03/03/2025 Reintubated 03/06/2025 - Continue rocephin Renal: #Mixed respiratory acidosis and metabolic alkalosis secondary to hypercapnia in the setting of OHS/BASIA and contraction alkalosis with diuretic use Follow up ABG #KENIA, improving Likely cardiorenal syndrome in the setting of RH failure Avoid nephrotoxic agent Renally dose medication GI: No acute problems Endo: #DM2, A1c 7.6 - ISS Heme: No acute problems ID: #Community-acquired pneumonia, improving Blood cultures negative Cocci negative, completing course of antibiotics with ceftriaxone last day 03/06 Hospital Maintenance: Diet: NPO DVT ppx: XARELTO GI ppx: protonix IV lines: PIV Fuller: Pure wick Code status: Full code Dispo: ICU for acute on chronic hypoxic and hypercapnic respiratory failure I have reviewed and discussed the patient's care with my attending, Dr. Ravin Rogers MD PGY-3 Attending Provider Attestation/Addendum I attest that I was physically present for the evaluation, physical examination, lab and imaging review of the patient with the residents. I discussed the case with the residents and agree with the findings and plans of care as documented above. Patient is a 64 years old male with past medical history of diabetes, hypertension, A-fib who was initially admitted to ICU for management of acute hypoxic respiratory failure, acute encephalopathy and shock. Patient was then transferred to floors once she was extubated and off of vasopressors. Yesterday evening, patient was having increased work of breathing, confusion. ABG was obtained, showed increased CO2 and pH of 7.34. Patient was started on BiPAP. Later in the evening, rapid response was called because of increased work of breathing. Patient was having respiratory rate from 50s to 60s. Changes in BiPAP settings were made. Repeat ABG showed mild improvement. But follow-up ABG after the BiPAP settings change still shows pH of 7.34 and pCO2 of 74 despite having minute ventilation and 15 L or more. Patient continued to have respiratory rates in high 30s to 40s. Tried to reach out to family but unsuccessful, patient was confused and unable to make decision for himself. Decision was made to intubate the patient and transferred to ICU for further management. We will continue with IV Rocephin, added doxycycline, diuresis. Adjusted ventilator setting, we will obtain follow-up ABG. Cortez Alicia MD
[2025-03-06] MEDS: ETOMIDATE INJ 2 MG/ML VIAL 10 ML 20 MG IV (03:18)
[2025-03-06] MEDS: ROCURONIUM INJ 10 MG/ML VIAL 10 ML 100 MG IV (03:18)
[2025-03-06] MEDS: PROPOFOL 1,000 MG IVPB 1,000 MG/100 ML VIAL 6.967 MG IV (03:22)
--- NOTE | 2025-03-06 03:23 | ESOP_ITS ---
Procedures Procedure Date / Time 03/06/25 0323 Intubation Indication(s): acute Resp Failure Informed consent obtained: procedure done urgently Time out done, and the following verified: correct patient, side and site, procedure and patient position Sedative: etomidate Mg given: 20 Paralytic: rocuronium Mg given: 100 Laryngoscope: fiber optic video scope Assist device used: fiber optic device ET tube size: 8 Tube secured depth (cm): 26 Tube secured location: teeth Tube placement confirmation: visualized tube passing through cords, equal breath sounds bilaterally, no breath sounds over epigastrium and confirmation by capnometry Patient tolerated procedure: well EBL(ml): 0 Additional comments: Procedure done under supervision of Dr. Welch, ER physician, with Dr. Barrera, president financial [employer], at bedside. Jenny Rogers MD PGY-3
[2025-03-06] MEDS: fentaNYL 2,500 MCG/250 ML BAG 2,500 MCG/250 ML BAG IV (03:25)
--- NOTE | 2025-03-06 03:26 | XR_ITS ---
Examination: AP chest single view Technique one AP portable supine chest single view Exam date and time: March 06, 2025 at 0335 hrs. Comparison: March 05, 2025 Indications: Hypoxic respiratory failure postintubation. Findings: Tracheal tube tip 4.5 cm above nunu Enlarged cardiac contour with bilateral pneumonia and/or pulmonary edema Orogastric tube in the stomach satisfactory position Impression: Tracheal tube tip 4.5 cm above nunu
[2025-03-06 05:36] LABS: Base Excess 13 (-3-3); HCO3 38 mEq/L (20-26); Inspired Oxygen, FIO2 100 %; O2 Saturation 100 % (91-98); PCO2 47 mmHg (32.0-48.0); PO2 160 mmHg (83-108); pH, Arterial 7.52 (7.35-7.45)
[2025-03-06 05:38] LABS: Allen Test Performed/OK; Puncture Site Right Radial
--- NOTE | 2025-03-06 05:57 | PD.EDADDENDU ---
Emergency Room Addendum <Dulce Salas - Last Filed: 03/06/25 06:01> Addendum Narrative: 0319: Called to supervise intubation procedure at ICU RM 257. Patient intubated successfully at 0319. View resident's procedure notes for full details. <Tiffanie Dailey - Last Filed: 03/07/25 05:10> Addendum Narrative: 0319: Called to supervise intubation procedure by the resident physician, Dr. Rogers. Patient intubated successfully at 0319. View resident's procedure notes in the EMR for full details.
[2025-03-06] MEDS: LEVALBUTEROL RT 0.63 MG/3 ML NEBU 1.25 MG INH ×2 (06:10→09:57)
[2025-03-06] MEDS: IPRATROPIUM RT 0.5 MG/ 2.5 ML NEBU INH ×2 (06:11→09:57)
[2025-03-06] MEDS: PROPOFOL 1,000 MG IVPB 1,000 MG/100 ML VIAL 34.836 MG IV ×3 (06:20→11:23)
[2025-03-06 06:32] LABS: Basophils % (Auto) 0 % (0-2.5); Eosinophils # (Auto) 0.5 Thou/mm3 (0.0-0.5); Eosinophils % (Auto) 4 % (0-10); Hematocrit 43.7 % (41.0-53.0); Hemoglobin 13.8 g/dL (13.5-16.0); Immature Granulocytes % (Auto) 2 % (0-0); Immature Granulocytes Auto 0.17 Thou/mm3 (0.00-0.00); Lymphocytes # (Auto) 0.8 Thou/mm3 (1.0-4.8); Lymphocytes % (Auto) 7 % (10-50); Mean Corpuscular HGB Conc 31.6 g/dl (31.0-37.0); Mean Corpuscular Hemoglobin 29.1 pg (25.0-35.0); Mean Corpuscular Volume 92 fL (80-100); Monocytes % (Auto) 9 % (0-12); Neutrophils # (Auto) 8.8 Thou/mm3 (1.8-7.7); Neutrophils % (Auto) 78 % (37-80); Nucleated Red Blood Cell % 0 /100 WBC (0); Platelet Count 271 Thou/mm3 (140-440); RDW Standard Deviation 47.5 fL (35.1-43.9); Red Blood Count 4.74 Miln/mm3 (4.50-5.90); White Blood Count 11.3 Thou/mm3 (3.8-10.6)
[2025-03-06] MEDS: INSULIN LISPRO (AdmeLOG) 1 UNIT/0.01 ML UNIT SC ×4 (06:33→23:39)
[2025-03-06] MEDS: cefTRIAXone/D5w 1gm IV premix 1 GM/50 ML BAG IV (08:44)
[2025-03-06] MEDS: METOPROLOL SUCCINATE XL 25 MG TABCR 100 MG PO ×2 (08:44→20:28)
[2025-03-06] MEDS: PANTOPRAZOLE INJ 40 MG VIAL IV (08:45)
[2025-03-06] MEDS: AMIODARONE HCL 200 MG TABLET PO (08:46)
--- NOTE | 2025-03-06 09:26 | PC.PT ---
Patient was transferred to ICU and is currently intubated. Patient will be D/C from PT at this time.
--- NOTE | 2025-03-06 10:10 | ESPR_ITS ---
<Statement entered by Lenora John MD - 03/12/25 08:38> Patient evaluated by me personally along with resident physician Dr. Leonel Wildre PGY 3 agree with the treatment plan recommendation patient still intubated mechanical ventilation intensive care unit possibly plan on extubating tomorrow patient has combination of sleep apnea obesity as well as heart failure predominant right heart failure receiving diuretics as well. All essential components are reviewed by me and we will continue to monitor the patient in ICU Documentation for date of: 03/07/25 Subjective Subjective Interval history: Patient seen and examined. No overnight events. Labs and vitals reviewed. Intubated and sedated due to AHRF at night. Exam Vital Signs Temp Pulse Resp BP Pulse Ox O2 Del Method O2 Flow Rate 97.6 F 99 20 130/78 96 Mechanical Ventilation 15 03/07/25 04:00 03/07/25 14:38 03/07/25 14:38 03/07/25 09:59 03/07/25 14:38 03/07/25 06:15 03/05/25 16:00 FiO2 35 03/07/25 14:38 Narrative Exam General: intubated and sedated HEENT: Normocephalic, atraumatic, mucous membranes moist. Heart: Irregular rate and rhythm, no murmurs. Lungs: Clear to auscultation with no wheezing or crackles. Abdomen: Soft, nondistended, nontender, positive bowel sounds. ?No guarding or rebound tenderness. Neurologic: Alert and oriented x3, no gross neurological deficit, and patient able to move all 4 extremities. Extremities: Bilateral 4+ pitting pedal edema extending up to the abdomen. Scrotal edema noted Skin: No rash or ecchymoses. Objective Labs 03/07/25 05:09 03/07/25 05:09 Labs: Laboratory Results - last 24 hr 03/06/25 03/07/25 03/07/25 17:10 05:00 05:09 WBC 13.6 H RBC 4.51 Hgb 12.8 L Hct 39.8 L MCV 88 MCH 28.4 MCHC 32.2 RDW Std Deviation 44.9 H Plt Count 279 Neut % (Auto) 81 H Lymph % (Auto) 7 L Amite % (Auto) 7 Eos % (Auto) 4 Baso % (Auto) 0 Neut # (Auto) 11.0 H Lymph # (Auto) 0.9 L Amite # (Auto) 1.0 H Eos # (Auto) 0.5 Baso # (Auto) 0.0 Immature Gran # (Auto) 0.13 H Absolute Nucleated RBC 0.00 Immature Gran % 1 H Nucleated RBC % 0 Puncture Site Left Radial ABG pH 7.46 H ABG pCO2 53 H ABG pO2 65 L D ABG HCO3 38 H ABG O2 Saturation 93 ABG Base Excess 12 H VBG pH 7.50 VBG pCO2 50 VBG pO2 70 H VBG O2 Sat (Oswaldo) 95 L VBG Base Excess 13 H FiO2 35 Sodium 152 H Potassium 3.8 Chloride 109 H Carbon Dioxide 36.3 H Anion Gap 7 BUN 54 H Creatinine 1.5 H Estim Creat Clear Calc 89.6 eGFR 51 L BUN/Creatinine Ratio 36 H Glucose 197 H Calculated Osmolality 321 H Calcium 9.0 Corrected Calcium 9.8 Total Bilirubin 0.8 AST 41 H ALT 30 Alkaline Phosphatase 111 Total Protein 5.3 L Albumin 3.0 L Globulin 2.3 Albumin/Globulin Ratio 1.3 Procalcitonin 1.22 H 03/07/25 14:03 WBC RBC Hgb Hct MCV MCH MCHC RDW Std Deviation Plt Count Neut % (Auto) Lymph % (Auto) Amite % (Auto) Eos % (Auto) Baso % (Auto) Neut # (Auto) Lymph # (Auto) Amite # (Auto) Eos # (Auto) Baso # (Auto) Immature Gran # (Auto) Absolute Nucleated RBC Immature Gran % Nucleated RBC % Puncture Site ABG pH ABG pCO2 ABG pO2 ABG HCO3 ABG O2 Saturation ABG Base Excess VBG pH 7.52 VBG pCO2 47 VBG pO2 61 H VBG O2 Sat (Oswaldo) 92 L VBG Base Excess 14 H FiO2 Sodium Potassium Chloride Carbon Dioxide Anion Gap BUN Creatinine Estim Creat Clear Calc eGFR BUN/Creatinine Ratio Glucose Calculated Osmolality Calcium Corrected Calcium Total Bilirubin AST ALT Alkaline Phosphatase Total Protein Albumin Globulin Albumin/Globulin Ratio Procalcitonin ABG Interpretation ABG results: 02/27/25 02/28/25 03/01/25 06:55 04:57 04:39 ABG pH 7.27 L 7.37 D 7.41 ABG pCO2 57 H 48 44 ABG pO2 101 78 L D 69 L ABG HCO3 26 28 H 28 H ABG O2 Saturation 98 95 93 ABG Base Excess -2 2 3 VBG pH VBG pCO2 VBG pO2 VBG Base Excess 03/01/25 03/01/25 03/02/25 13:15 14:52 04:25 ABG pH Cancelled 7.41 7.45 ABG pCO2 Cancelled 45 42 ABG pO2 Cancelled 53 L* 66 L ABG HCO3 Cancelled 28 H 29 H ABG O2 Saturation Cancelled 85 L 92 ABG Base Excess Cancelled 3 5 H VBG pH VBG pCO2 VBG pO2 VBG Base Excess 03/03/25 03/05/25 03/05/25 04:40 16:30 16:55 ABG pH 7.45 Cancelled 7.34 L D ABG pCO2 43 Cancelled 72 H* D ABG pO2 72 L Cancelled 83 ABG HCO3 30 H Cancelled 38 H ABG O2 Saturation 94 Cancelled 95 ABG Base Excess 5 H Cancelled 9 H VBG pH VBG pCO2 VBG pO2 VBG Base Excess 03/05/25 03/06/25 03/06/25 23:36 01:48 05:22 ABG pH 7.37 7.34 L 7.52 H D ABG pCO2 67 H 74 H* 47 D ABG pO2 150 H D 88 D 160 H D ABG HCO3 38 H 40 H 38 H ABG O2 Saturation 99 H 96 100 H ABG Base Excess 10 H 11 H 13 H VBG pH VBG pCO2 VBG pO2 VBG Base Excess 03/06/25 03/07/25 03/07/25 17:10 05:00 14:03 ABG pH 7.46 H ABG pCO2 53 H ABG pO2 65 L D ABG HCO3 38 H ABG O2 Saturation 93 ABG Base Excess 12 H VBG pH 7.50 7.52 VBG pCO2 50 47 VBG pO2 70 H 61 H VBG Base Excess 13 H 14 H Quality Measures Quality Measures sepsis Current suspected stage: ruled out Possible source: pulmonary Blood cultures ordered: completed in ED Antibiotic ordered: Yes Advance care planning discussed with:: patient Assessment & Plan Assessment Current Active Medications: Generic Name Dose Route Start Last Admin Trade Name Freq PRN Reason Stop Dose Admin Acetaminophen 650 mg 02/27/25 09:24 Acetaminophen 325 Mg Tablet PO 03/29/25 09:23 Q4HR PRN PAIN SCALE 1-3 (mild Al Hydrox/Mg Hydrox/Simethicone 30 ml 02/27/25 09:24 Mg Hyd/Al Hyd/Virgilio (Maalox Reg) Susp 30 Ml Udc PO 03/29/25 09:23 Q4HR PRN Heartburn or Upset Stomach Amiodarone HCl 200 mg 03/01/25 09:00 03/07/25 09:13 Amiodarone Hcl 200 Mg Tablet PO 03/31/25 08:59 200 mg QDAY KOURTNEY Administration Bumetanide 1 mg 03/07/25 09:00 03/07/25 09:13 Bumetanide Inj 0.25 Mg/Ml Vial 4 Ml IVP 04/06/25 08:59 1 mg BID KOURTNEY Administration Dextrose 25 ml 03/03/25 08:20 Dextrose 50%-Water Inj 50 Ml Syringe IV 04/02/25 08:19 Q15MIN PRN BG 50-70 responsive npo pt Dextrose 50 ml 03/03/25 08:20 Dextrose 50%-Water Inj 50 Ml Syringe IV 04/02/25 08:19 Q15MIN PRN BG <50 OR BG <70 & pt unresponsive Glucagon 1 mg 03/03/25 08:20 Glucagon Inj 1 Mg Vial IM Q15MIN PRN BG <70, and no IV access Dexmedetomidine/Sodium Chloride 200 mcg in 50 mls @ 11.37 mls/hr 03/06/25 18:38 03/07/25 07:08 Precedex Ivpb IV 04/05/25 18:37 0.2 mcg/kg/hr .Q4H24M PRN 11.37 mls/hr Per PROTOCOL Administration Protocol 0.2 MCG/KG/HR Insulin Glargine 14 unit 03/05/25 21:00 03/05/25 23:28 Insulin Glargine (Lantus) 5 Unit/0.05 Ml (Per 5 Units) SC 04/04/25 20:59 14 unit HS KOURTNEY Administration Insulin Human Lispro 0 unit 03/06/25 06:00 03/07/25 13:08 Insulin Lispro (Admelog) 1 Unit/0.01 Ml Unit SC 04/05/25 05:59 1 unit Q6H KOURTNEY Administration Protocol Magnesium Hydroxide 30 ml 02/27/25 09:24 Milk Of Magnesia Susp 30 Ml Udc PO 03/29/25 09:23 QDAY PRN CONSTIPATION Metoprolol Succinate 100 mg 03/03/25 21:00 03/07/25 09:13 Metoprolol Succinate Xl 25 Mg Tabcr PO 04/02/25 20:59 100 mg BID KOURTNEY Administration Ondansetron HCl 4 mg 03/05/25 20:46 03/05/25 20:55 Ondansetron Inj 2 Mg/Ml Inj 2 Ml IV 04/04/25 20:45 4 mg Q6HR PRN Administration NAUSEA OR VOMITING Protocol Pantoprazole Sodium 40 mg 02/27/25 11:15 03/07/25 09:14 Pantoprazole Inj 40 Mg Vial IV 03/29/25 11:14 40 mg QDAY KOURTNEY Administration Rivaroxaban 20 mg 03/04/25 17:30 03/06/25 18:25 Rivaroxaban 10 Mg Tablet PO 04/03/25 17:29 20 mg WSUPPER KOURTNEY Administration Plan Plan 64-year-old male with significant past medical history of hypertension, diabetes mellitus, A-fib was admitted to the ICU on 02/27/2025 after coming in with altered mental status and shortness of breath, intubated for acute hypoxic respiratory failure and had suspected obesity hypoventilation syndrome/obstructive sleep apnea/pneumonia and acute kidney injury. Subsequently downgraded and cardiology has been consulted for suspected heart failure. #Right congestive heart failure #Possible cardiorenal syndrome Echo on this admission showed poor quality images secondary to the patient's body habitus so was a technically limited study. Patient is comfortably laying flat without experiencing increased shortness of breath. He is requiring supplemental O2 at 5-6L. Suspect chronic right heart failure in the setting of chronic obesity hypoventilation syndrome and obstructive sleep apnea. There is diffuse anasarca, which was worse on admission. After receiving diuresis has been improving. -hold diuresis with bumetanide 2 mg IV BID, due to contraction alkalosis -evidence has shown that adding acetazolamide in combination with a loop diuretic has shown to be beneficial and prevention of C.A. -Consider adding spironolactone when KENIA improves -Continue with BiPAP therapy at night -Monitor strict I&Os -Limit sodium intake -Fluid restrictions #Atrial fibrillation, rate controlled Patient notes positive history of afib. He had previously been on metoprolol succinate 100 mg BID. Currently appears rate-controlled in the 100s. [id number] score 4 -Continue with home metoprolol succinate 100 mg BID -Continue with amiodarone 200 mg qday -Patient may be started on anticoagulation if there are no contraindications, agree with Xarelto 20 mg qday -Keep potassium >4.0 and mag >2.0 Rest of conditions to continue current management per primary team: #Acute hypoxic respiratory failure #Morbid obesity #OHS/BASIA #Community acquired pneumonia #Elevated LFTs #Hyperbilirubinemia #History of type 2 diabetes #Lactic acidosis #KENIA on CKD - Patient's care was discussed with my attending physician, Dr. Alvaro Parikh MD Internal Medicine PGY-3
[2025-03-06] MEDS: metOLazone 2.5 MG TABLET 10 MG PO (11:34)
[2025-03-06 11:59] LABS: Alanine Aminotransferase 38 U/L (10-49); Albumin, Serum 2.9 gm/dL (3.4-4.8); Albumin/Globulin Ratio 1.3 (1.2-2.2); Alkaline Phosphatase 107 U/L (46-116); Anion Gap 5 (7-16); Aspartate Amino Transferase 37 U/L (0-34); BUN/Creatinine Ratio 32 Ratio (12-20); Bilirubin,Total 0.7 mg/dL (0.3-1.2); Blood Urea Nitrogen 51 mg/dL (9-23); Calcium 8.6 mg/dL (8.3-10.6); Calcium (Corrected) 9.5 mg/dL (8.5-10.1); Carbon Dioxide 35.6 mMol/L (20.0-31.0); Chloride 106 mMol/L (98-107); Creatinine (Component) 1.6 mg/dL (0.6-1.3); Estimated Creatinine Clearance 84.1 mL/min (>60); Globulin 2.2 gm/dL (2.3-3.5); Glucose 178 mg/dL (74-106); Magnesium 2.1 mg/dL (1.6-2.6); Osmolality,Calculated 310 (275-295); Phosphorous 2.4 mg/dL (2.4-5.1); Potassium 3.7 mMol/L (3.4-5.1); Sodium 147 mMol/L (136-145); Total Protein 5.1 gm/dL (5.7-8.2); eGFR 48 See Note
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
--- NOTE | 2025-03-06 14:07 | PD.RESPRO ---
Documentation for date of: 03/06/25 Subjective Subjective Interval history: 64-year-old male with past medical history of DM2, hypertension, and A-fib was admitted to the ICU on 02/27/2025 after coming to the ED with complaints of altered mental status and shortness of breath. Patient was intubated in the ED therefore most of the history was taken from chart review and from the parents who are at bedside. Patient's parents stated that yesterday morning patient could not get up from his chair and then later that evening/night he started getting confused and was not making sense when he was seen. This morning EMS found the patient on the floor and he was saturating in the 70s even on high flow nasal cannula. Given his hypoxia patient was intubated in the ED. As per parents were at bedside they stated that prior to this patient was able to walk around, but that since yesterday morning he was unable to walk. On assessment patient was intubated, but was still able to answer yes or no questions. He was also able to follow commands. Patient spiked a fever while in the ED and he became hypotensive unresponsive to IV fluids therefore he was placed on vasopressors. 02/28/2025: Patient was seen examined at bedside this morning. Overnight patient did spike a fever of 100.4 and he had no measurable urine output. Patient placed on amio drip overnigth. He was also given Bumex 1 mg x 1 overnight to see if he had better urine output, but none was measured. Today's patient's chest x-ray this looks like it is improving and he did have wet pants and some urine in the pure wick catheter. Will start patient on Bumex drip at 1 mg and will monitor patient's daily weights. Patient was on very low-dose of Levophed therefore we will start patient on midodrine 10 mg every 6 hours and wean off Levophed entirely. Patient is nasogastric tube was not visualized had x-ray, but on auscultation air was audible in the stomach when hand was placed through the nasogastric tube. Will discontinue patient's vancomycin and Zosyn if his MRSA is negative and will transition to azithromycin and Rocephin. 03/01/2025: Patient seen and examined at bedside this morning. Overnight patient went into A-fib with RVR and he finishes bolus of amiodarone. Patient had a documented urine output of 150, but that she states 1 were very wet. His Bumex drip finished overnight and they were not able to start more Bumex drip as there was not available in the pharmacy overnight. Patient's weight did go down from 249 to 247 kg. Blood cultures have been negative in 48 hours and MRSA nares negative. Will discontinue vancomycin and Zosyn and will start azithromycin and Rocephin. Patient's ventilator requirements have been unchanged, but has been saturating in the 94% therefore we will try and wean down on oxygen requirements. His blood pressure has been stable off Levophed and only on midodrine. His kidney function has been worsening, but expect improvement with more diuresis. Started Amiodarone 200mg qday. 03/02/2025: No overnight events, todays weight 246, we will continue bumex drip. NIF today as -12, we will re-evaluate tomorrow to attempt extubation. Midodrine decreased to 5 q6hr 03/03/2025: Patient was seen examined at bedside this morning. No acute overnight events. Patient was taken off the Precedex yesterday night. Today's weight is 242 kg. Succesfull extubation today, will transition to bipap. 03/06/2025: Was notified by floors team that patient is tachypneic in the 40s with increased work of breathing, confusion, and agitation. He was AAOx 1 (name) and saying leave me alone. He continues to pull at his BIPAP and had to be restrained, with a sitter at bedside. His BIPAP settings were uptitrated from 10/5 to 16/6 without significant improvement of PCO2. Repeat ABG showed pH 7.37 with CO2 at 74. Floor team attempted to notify family with no answer. He remains confused and agitated. Patient to be intubated due to worsening respiratory effort. 03/06/2025: Patient was seen and examined at bedside this morning. He was sedated in the morning, but was weaned off. Patient was able to follow commands he understood and was able to at least answer yes and no questions. Patient was placed on spontaneous breathing trial, but his RSBI was in the 130s therefore patient was high risk to fail extubation at this time. Placed patient back on prior ventilator settings, will follow any sedation at this time as she is calm. Sedation will be placed if patient becomes agitated. Patient is diuresing well and his current weight today is 227 kilograms. Gave metolazone 10 mg x 1 today for additional diuresis and started tube feeds today. Will reattempt weaning parameters tomorrow for possible extubation. Exam Vital Signs Temp Pulse Resp BP Pulse Ox O2 Del Method O2 Flow Rate 98.0 F 95 23 H 91/74 91 L Mechanical Ventilation 15 03/06/25 08:00 03/06/25 11:34 03/06/25 09:59 03/06/25 11:34 03/06/25 10:00 03/06/25 08:00 03/05/25 16:00 FiO2 40 03/06/25 09:59 Narrative Exam General: morbidly obese, able to follow commands, but sleepy Eyes: PERRL, EOMI. Anicteric, vision grossly intact. Ears: No ear pain, no ear discharge, Hearing grossly intact. Nose: No nasal discharge. Mouth/Throat: Moist mucous membranes, no redness, no lesions. Neck: Short neck non-tender, no cervical lymphadenopathy. Lungs: Clear BANG in upper lobes and decreased in Lower lobes. Cardio: Distant heart sounds likely due to body habitus, normal S1/S2, regular rhythm, no murmurs, no JVD Abdomen: Swollen lower abdomen around 1+, no palpable masses, peristalsis present, no guarding or rebound. Extremities: Symmetrical, no significant deformities, 1+ peripheral edema , non-tender, peripheral pulses presents. Skin: No rashes, no lesions, warm to touch, purplish discoloration on the right neck, nonpainful. Neuro: Able to follow commands, pupils reactive to light, able to move all extremities today. Objective Labs 03/06/25 05:14 03/06/25 11:22 Labs: Laboratory Results - last 24 hr 03/05/25 03/05/25 03/05/25 00:13 04:38 05:14 WBC 13.5 H 10.5 RBC 4.77 Hgb 13.4 L 14.3 Hct 43.1 MCV 90 MCH 28.1 MCHC 31.1 RDW Std Deviation 46.8 H Plt Count 355 D 295 D Neut % (Auto) 78 Lymph % (Auto) 7 L [place] % (Auto) 11 Eos % (Auto) 3 Baso % (Auto) 0 Neut # (Auto) 10.5 H Lymph # (Auto) 0.9 L [place] # (Auto) 1.5 H Eos # (Auto) 0.4 Baso # (Auto) 0.0 Immature Gran # (Auto) 0.13 H Absolute Nucleated RBC 0.00 Immature Gran % 1 H Nucleated RBC % 0 Puncture Site ABG pH ABG pCO2 ABG pO2 ABG HCO3 ABG O2 Saturation ABG Base Excess Oxygen Liter Flow FiO2 Sodium Cancelled Potassium Cancelled Chloride Cancelled Carbon Dioxide Cancelled Anion Gap Cancelled BUN Cancelled Creatinine Cancelled Estim Creat Clear Calc Cancelled eGFR Cancelled BUN/Creatinine Ratio Cancelled Glucose Cancelled Calculated Osmolality Cancelled Lactic Acid 1.4 Calcium Cancelled Corrected Calcium Cancelled Phosphorus Cancelled Magnesium Cancelled Total Bilirubin Cancelled AST Cancelled ALT Cancelled Alkaline Phosphatase Cancelled Total Protein Cancelled Albumin Cancelled Globulin Cancelled Albumin/Globulin Ratio Cancelled 03/05/25 03/05/25 03/05/25 16:30 16:53 16:55 WBC RBC Hgb Hct MCV MCH MCHC RDW Std Deviation Plt Count Neut % (Auto) Lymph % (Auto) [place] % (Auto) Eos % (Auto) Baso % (Auto) Neut # (Auto) Lymph # (Auto) [place] # (Auto) Eos # (Auto) Baso # (Auto) Immature Gran # (Auto) Absolute Nucleated RBC Immature Gran % Nucleated RBC % Puncture Site Cancelled Left Radial ABG pH Cancelled 7.34 L D ABG pCO2 Cancelled 72 H* D ABG pO2 Cancelled 83 ABG HCO3 Cancelled 38 H ABG O2 Saturation Cancelled 95 ABG Base Excess Cancelled 9 H Oxygen Liter Flow Cancelled FiO2 Cancelled 21 Sodium 147 H Potassium 4.3 Chloride 108 H Carbon Dioxide 34.8 H Anion Gap 4 L BUN 46 H Creatinine 1.4 H Estim Creat Clear Calc 97.6 eGFR 56 L BUN/Creatinine Ratio 33 H Glucose 262 H Calculated Osmolality 313 H Lactic Acid Calcium 8.7 Corrected Calcium 9.3 Phosphorus 3.7 Magnesium Total Bilirubin AST ALT Alkaline Phosphatase Total Protein Albumin 3.3 L Globulin Albumin/Globulin Ratio 03/05/25 03/05/25 03/06/25 17:58 23:36 00:13 WBC RBC Hgb Hct MCV MCH MCHC RDW Std Deviation Plt Count Neut % (Auto) Lymph % (Auto) [place] % (Auto) Eos % (Auto) Baso % (Auto) Neut # (Auto) Lymph # (Auto) [place] # (Auto) Eos # (Auto) Baso # (Auto) Immature Gran # (Auto) Absolute Nucleated RBC Immature Gran % Nucleated RBC % Puncture Site Right Radial ABG pH 7.37 ABG pCO2 67 H ABG pO2 150 H D ABG HCO3 38 H ABG O2 Saturation 99 H ABG Base Excess 10 H Oxygen Liter Flow FiO2 50 Sodium 145 145 Potassium 3.8 D 3.7 Chloride 103 105 Carbon Dioxide 35.8 H 32.4 H Anion Gap 6 L 8 BUN 46 H 45 H Creatinine 1.4 H 1.4 H Estim Creat Clear Calc 97.6 97.6 eGFR 56 L 56 L BUN/Creatinine Ratio 33 H 32 H Glucose 253 H 225 H Calculated Osmolality 309 H 307 H Lactic Acid Calcium 8.9 9.0 Corrected Calcium 9.4 9.5 Phosphorus 3.6 Magnesium Total Bilirubin 0.7 AST 39 H ALT 46 Alkaline Phosphatase 134 H Total Protein 6.0 Albumin 3.4 3.4 Globulin 2.6 Albumin/Globulin Ratio 1.3 03/06/25 03/06/25 03/06/25 01:48 05:14 05:22 WBC 11.3 H RBC 4.74 Hgb 13.8 Hct 43.7 MCV 92 MCH 29.1 MCHC 31.6 RDW Std Deviation 47.5 H Plt Count 271 Neut % (Auto) 78 Lymph % (Auto) 7 L [place] % (Auto) 9 Eos % (Auto) 4 Baso % (Auto) 0 Neut # (Auto) 8.8 H Lymph # (Auto) 0.8 L [place] # (Auto) 1.0 H Eos # (Auto) 0.5 Baso # (Auto) 0.0 Immature Gran # (Auto) 0.17 H Absolute Nucleated RBC 0.00 Immature Gran % 2 H Nucleated RBC % 0 Puncture Site Right Radial Right Radial ABG pH 7.34 L 7.52 H D ABG pCO2 74 H* 47 D ABG pO2 88 D 160 H D ABG HCO3 40 H 38 H ABG O2 Saturation 96 100 H ABG Base Excess 11 H 13 H Oxygen Liter Flow FiO2 21 100 Sodium Potassium Chloride Carbon Dioxide Anion Gap BUN Creatinine Estim Creat Clear Calc eGFR BUN/Creatinine Ratio Glucose Calculated Osmolality Lactic Acid Calcium Corrected Calcium Phosphorus Magnesium Total Bilirubin AST ALT Alkaline Phosphatase Total Protein Albumin Globulin Albumin/Globulin Ratio 03/06/25 11:22 WBC RBC Hgb Hct MCV MCH MCHC RDW Std Deviation Plt Count Neut % (Auto) Lymph % (Auto) [place] % (Auto) Eos % (Auto) Baso % (Auto) Neut # (Auto) Lymph # (Auto) [place] # (Auto) Eos # (Auto) Baso # (Auto) Immature Gran # (Auto) Absolute Nucleated RBC Immature Gran % Nucleated RBC % Puncture Site ABG pH ABG pCO2 ABG pO2 ABG HCO3 ABG O2 Saturation ABG Base Excess Oxygen Liter Flow FiO2 Sodium 147 H Potassium 3.7 Chloride 106 Carbon Dioxide 35.6 H Anion Gap 5 L BUN 51 H Creatinine 1.6 H Estim Creat Clear Calc 84.1 eGFR 48 L BUN/Creatinine Ratio 32 H Glucose 178 H Calculated Osmolality 310 H Lactic Acid Calcium 8.6 Corrected Calcium 9.5 Phosphorus 2.4 Magnesium 2.1 Total Bilirubin 0.7 AST 37 H ALT 38 Alkaline Phosphatase 107 D Total Protein 5.1 L Albumin 2.9 L D Globulin 2.2 L Albumin/Globulin Ratio 1.3 ABG Interpretation ABG results: 02/27/25 02/28/25 03/01/25 06:55 04:57 04:39 ABG pH 7.27 L 7.37 D 7.41 ABG pCO2 57 H 48 44 ABG pO2 101 78 L D 69 L ABG HCO3 26 28 H 28 H ABG O2 Saturation 98 95 93 ABG Base Excess -2 2 3 03/01/25 03/01/25 03/02/25 13:15 14:52 04:25 ABG pH Cancelled 7.41 7.45 ABG pCO2 Cancelled 45 42 ABG pO2 Cancelled 53 L* 66 L ABG HCO3 Cancelled 28 H 29 H ABG O2 Saturation Cancelled 85 L 92 ABG Base Excess Cancelled 3 5 H 03/03/25 03/05/25 03/05/25 04:40 16:30 16:55 ABG pH 7.45 Cancelled 7.34 L D ABG pCO2 43 Cancelled 72 H* D ABG pO2 72 L Cancelled 83 ABG HCO3 30 H Cancelled 38 H ABG O2 Saturation 94 Cancelled 95 ABG Base Excess 5 H Cancelled 9 H 03/05/25 03/06/25 03/06/25 23:36 01:48 05:22 ABG pH 7.37 7.34 L 7.52 H D ABG pCO2 67 H 74 H* 47 D ABG pO2 150 H D 88 D 160 H D ABG HCO3 38 H 40 H 38 H ABG O2 Saturation 99 H 96 100 H ABG Base Excess 10 H 11 H 13 H Quality Measures Quality Measures sepsis Current suspected stage: ruled out Possible source: pulmonary Blood cultures ordered: completed in ED Antibiotic ordered: No Advance care planning discussed with:: patient Assessment & Plan Assessment Current Active Medications: Generic Name Dose Route Start Last Admin Trade Name Freq PRN Reason Stop Dose Admin Acetaminophen 650 mg 02/27/25 09:24 Acetaminophen 325 Mg Tablet PO 03/29/25 09:23 Q4HR PRN PAIN SCALE 1-3 (mild Al Hydrox/Mg Hydrox/Simethicone 30 ml 02/27/25 09:24 Mg Hyd/Al Hyd/Virgilio (Maalox Reg) Susp 30 Ml Udc PO 03/29/25 09:23 Q4HR PRN Heartburn or Upset Stomach Amiodarone HCl 200 mg 03/01/25 09:00 03/06/25 08:46 Amiodarone Hcl 200 Mg Tablet PO 03/31/25 08:59 200 mg QDAY KOURTNEY Administration Dextrose 25 ml 03/03/25 08:20 Dextrose 50%-Water Inj 50 Ml Syringe IV 04/02/25 08:19 Q15MIN PRN BG 50-70 responsive npo pt Dextrose 50 ml 03/03/25 08:20 Dextrose 50%-Water Inj 50 Ml Syringe IV 04/02/25 08:19 Q15MIN PRN BG <50 OR BG <70 & pt unresponsive Glucagon 1 mg 03/03/25 08:20 Glucagon Inj 1 Mg Vial IM Q15MIN PRN BG <70, and no IV access Propofol 1,000 mg in 100 mls @ 6.967 mls/hr 03/06/25 02:57 03/06/25 11:40 Diprivan Ivpb IV 04/05/25 02:56 15 mcg/kg/min .[id number] PRN 20.902 mls/hr PER PROTOCOL Titration Protocol 5 MCG/KG/MIN Fentanyl Citrate 2,500 mcg in 250 mls @ 2.5 mls/hr 03/06/25 02:58 03/06/25 11:23 Sublimaze Inj 2,500 Mcg/250 Ml Bag IV 03/11/25 02:57 25 mcg/hr .Q24H PRN 2.5 mls/hr PER PROTOCOL Titration Protocol 25 MCG/HR Insulin Glargine 14 unit 03/05/25 21:00 03/05/25 23:28 Insulin Glargine (Lantus) 5 Unit/0.05 Ml (Per 5 Units) SC 04/04/25 20:59 14 unit HS KOURTNEY Administration Insulin Human Lispro 0 unit 03/06/25 06:00 03/06/25 11:35 Insulin Lispro (Admelog) 1 Unit/0.01 Ml Unit SC 04/05/25 05:59 1 unit Q6H KOURTNEY Administration Protocol Magnesium Hydroxide 30 ml 02/27/25 09:24 Milk Of Magnesia Susp 30 Ml Udc PO 03/29/25 09:23 QDAY PRN CONSTIPATION Metoprolol Succinate 100 mg 03/03/25 21:00 03/06/25 08:44 Metoprolol Succinate Xl 25 Mg Tabcr PO 04/02/25 20:59 100 mg BID KOURTNEY Administration Ondansetron HCl 4 mg 03/05/25 20:46 03/05/25 20:55 Ondansetron Inj 2 Mg/Ml Inj 2 Ml IV 04/04/25 20:45 4 mg Q6HR PRN Administration NAUSEA OR VOMITING Protocol Pantoprazole Sodium 40 mg 02/27/25 11:15 03/06/25 08:45 Pantoprazole Inj 40 Mg Vial IV 03/29/25 11:14 40 mg QDAY KOURTNEY Administration Rivaroxaban 20 mg 03/04/25 17:30 03/05/25 17:06 Rivaroxaban 10 Mg Tablet PO 04/03/25 17:29 Not Given WSUPPER KOURTNEY Plan 64-year-old male with past medical history of DM2, hypertension, and A-fib was admitted to the ICU on 02/27/2025 for shock and acute hypoxic respiratory failure. 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 encephalopathy, improving Patient able to follow instructions today and was more awake CVS: #Shock, resolved #CHF Patient's chest x-ray today showed no change net balance -5kg Echo could not visualize all chambers and could not provide ejection fraction Bumex 1 mg twice daily Metolazone 10 mg x 1 Daily weights #Hx of A-fib [id number] score of 3 points indicating 3.2% risk of stroke per year Has bled score of 0 Continue PO amiodarone 200 mg qday Continue metoprolol succinate 100 mg BID Continue Xarelto 20 mg daily Echo could not visualize all chambers Respiratory: #Acute on chronic hypoxic and hypercapnic respiratory failure #Community-acquired pneumonia Patient was intubated on 02/27/2025, extubated 03/03/2025 and reintubated on 03/06/2025 Blood gas today show improvement with pH of 7.52, PCO2 of 47, and PO2 of 160 Finish Rocephin today (03/06/2025) Renal: #KENIA, improving #Metabolic alkalosis Creatinine today 1.6, baseline is around 1 Alkalosis most likely due to compensation versus contraction alkalosis from diuresis Will continue Bumex 1 mg twice daily Metolazone 10 mg x 1 today Avoid nephrotoxic agent Renally dose medication GI: stable Endo: #Morbid obesity Patient has a BMI of 79.5 #DM2 A1C 7.6 on 03/05/2025 glargine 14 unit HS ISS Hypoglycemia protocol ordered Heme: #Leukocytosis Likely reactive ID: #Community-acquired pneumonia Finish Rocephin today (03/06/2025) Hospital Maintenance: Diet: tube feeds DVT ppx: Xarelto GI ppx: protonix IV lines: PIV Fuller: Pure wick Code status: Full code Dispo: ICU for acute on chronic hypoxic and hypercapnic respiratory failure. Case disclosed with Attending Dr. Deon Cornejo PGY1 Attending Provider Attestation/Addendum I saw the patient with PGY 1 and PGY 3 Case was discussed with him and I agree on the above assessment and plan Briefly patient has pneumonia CHF KENIA Kidney function is improving Patient has diuresed well and lost about 20 kg Still on the vent but will need to do daily trials of awakening and spontaneous breathing Patient still has weakness in his muscles Will continue with the current regimen with Bumex and add metolazone x 1 No need for Diamox as it does not really change much and the outcome Watch his urine output and his weight Patient has most likely multifocal atrial tachycardia not SVT Will continue with amiodarone Patient on Xarelto for A-fib No Fuller catheter Watching his weight regarding his fluid status
[2025-03-06 17:46] LABS: Base Excess, Venous 13 (-3-3); O2 Saturation, Venous 95 % (96-97); PCO2, Venous 50 mmHg (36-56); PO2, Venous 70 mmHg (15-58)
[2025-03-06] MEDS: RIVAROXABAN 10 MG TABLET 20 MG PO (18:25)
[2025-03-06] MEDS: DEXMEDETOMIDINE 11.37 MCG IV ×2 (19:46→22:38)
[2025-03-07] VITALS (68 sets, daily range): BP systolic 98–133; BP diastolic 66–95; PULSE 80–108; RESP 18–45; TEMP 36.1–36.8; O2SAT 91–994; BMI 78.4
[2025-03-07] MEDS: DEXMEDETOMIDINE 11.37 MCG IV ×2 (02:39→07:08)
[2025-03-07 05:26] LABS: Base Excess 12 (-3-3); HCO3 38 mEq/L (20-26); Inspired Oxygen, FIO2 35 %; O2 Saturation 93 % (91-98); PCO2 53 mmHg (32.0-48.0); PO2 65 mmHg (83-108); pH, Arterial 7.46 (7.35-7.45)
[2025-03-07] MEDS: INSULIN LISPRO (AdmeLOG) 1 UNIT/0.01 ML UNIT SC ×3 (05:27→18:10)
[2025-03-07 05:46] LABS: Allen Test Performed/OK; Puncture Site Left Radial
[2025-03-07 06:09] LABS: Basophils % (Auto) 0 % (0-2.5); Eosinophils # (Auto) 0.5 Thou/mm3 (0.0-0.5); Eosinophils % (Auto) 4 % (0-10); Hematocrit 39.8 % (41.0-53.0); Hemoglobin 12.8 g/dL (13.5-16.0); Immature Granulocytes % (Auto) 1 % (0-0); Immature Granulocytes Auto 0.13 Thou/mm3 (0.00-0.00); Lymphocytes # (Auto) 0.9 Thou/mm3 (1.0-4.8); Lymphocytes % (Auto) 7 % (10-50); Mean Corpuscular HGB Conc 32.2 g/dl (31.0-37.0); Mean Corpuscular Hemoglobin 28.4 pg (25.0-35.0); Mean Corpuscular Volume 88 fL (80-100); Monocytes % (Auto) 7 % (0-12); Neutrophils % (Auto) 81 % (37-80); Nucleated Red Blood Cell % 0 /100 WBC (0); Platelet Count 279 Thou/mm3 (140-440); RDW Standard Deviation 44.9 fL (35.1-43.9); Red Blood Count 4.51 Miln/mm3 (4.50-5.90); White Blood Count 13.6 Thou/mm3 (3.8-10.6)
[2025-03-07 06:38] LABS: Alanine Aminotransferase 30 U/L (10-49); Albumin/Globulin Ratio 1.3 (1.2-2.2); Alkaline Phosphatase 111 U/L (46-116); Anion Gap 7 (7-16); Aspartate Amino Transferase 41 U/L (0-34); BUN/Creatinine Ratio 36 Ratio (12-20); Bilirubin,Total 0.8 mg/dL (0.3-1.2); Blood Urea Nitrogen 54 mg/dL (9-23); Calcium (Corrected) 9.8 mg/dL (8.5-10.1); Carbon Dioxide 36.3 mMol/L (20.0-31.0); Chloride 109 mMol/L (98-107); Creatinine (Component) 1.5 mg/dL (0.6-1.3); Estimated Creatinine Clearance 89.6 mL/min (>60); Globulin 2.3 gm/dL (2.3-3.5); Glucose 197 mg/dL (74-106); Osmolality,Calculated 321 (275-295); Potassium 3.8 mMol/L (3.4-5.1); Sodium 152 mMol/L (136-145); Total Protein 5.3 gm/dL (5.7-8.2); eGFR 51 See Note
--- NOTE | 2025-03-07 07:05 | XR_ITS ---
Examination: AP chest single view TECHNIQUE: AP portable semiupright chest single view Exam date and time: March 07, 2025 0729 hours Comparison March 06, 2025 INDICATIONS: Hypoxic respiratory failure, pneumonia or heart failure on earlier chest films FINDINGS: Tracheal tube tip 5 cm above nunu Enlarged cardiac contour with prominent vascular congestion and perihilar basilar edema and/or pneumonia Orogastric tube in the stomach IMPRESSION: [id number] heart failure Extensive bibasilar pneumonia
--- NOTE | 2025-03-07 08:40 | PD.ADDPROG ---
Addendum Progress Note Addendum Date of report being addended: 03/07/25 Narrative: I saw the case with my PGY 1 and PGY 3 resident I agree on the assessment and plan by the resident Today the patient is awake and doing well with the awakening trial and spontaneous breathing trial His NIF is -3 and his RSBI is 79 He had good handgrip Will extubate to BiPAP Patient is currently on a low diuretic we will add a metolazone 1 day and see how his weight Otherwise patient is ready for extubation Spontaneous breathing trial was successful within limits ready for extubation Patient was extubated without any problem and was put on BiPAP Due to his obesity we will going to keep him on high inspiratory pressure for BiPAP Kidney function test is at the same level
[2025-03-07] MEDS: metOLazone 2.5 MG TABLET 10 MG PO (09:12)
[2025-03-07] MEDS: METOPROLOL SUCCINATE XL 25 MG TABCR 100 MG PO ×2 (09:13→21:27)
[2025-03-07] MEDS: AMIODARONE HCL 200 MG TABLET PO (09:13)
[2025-03-07] MEDS: BUMETANIDE INJ 0.25 MG/ML VIAL 4 ML 1 MG IVP (09:13)
[2025-03-07] MEDS: PANTOPRAZOLE INJ 40 MG VIAL IV (09:14)
[2025-03-07 09:34] LABS: Procalcitonin 1.22 ng/ml (0.0-0.49)
--- NOTE | 2025-03-07 11:52 | PC.SS ---
Update: Patient extubated today. Patient transitioned to BI-PAP. Family at bedside with patient.
--- NOTE | 2025-03-07 13:52 | ESPR_ITS ---
Documentation for date of: 03/07/25 Subjective Subjective Interval history: 64-year-old male with past medical history of DM2, hypertension, and A-fib was admitted to the ICU on 02/27/2025 after coming to the ED with complaints of altered mental status and shortness of breath. Patient was intubated in the ED therefore most of the history was taken from chart review and from the parents who are at bedside. Patient's parents stated that yesterday morning patient could not get up from his chair and then later that evening/night he started getting confused and was not making sense when he was seen. This morning EMS found the patient on the floor and he was saturating in the 70s even on high flow nasal cannula. Given his hypoxia patient was intubated in the ED. As per parents were at bedside they stated that prior to this patient was able to walk around, but that since yesterday morning he was unable to walk. On assessment patient was intubated, but was still able to answer yes or no questions. He was also able to follow commands. Patient spiked a fever while in the ED and he became hypotensive unresponsive to IV fluids therefore he was placed on vasopressors. 02/28/2025: Patient was seen examined at bedside this morning. Overnight patient did spike a fever of 100.4 and he had no measurable urine output. Patient placed on amio drip overnigth. He was also given Bumex 1 mg x 1 overnight to see if he had better urine output, but none was measured. Today's patient's chest x-ray this looks like it is improving and he did have wet pants and some urine in the pure wick catheter. Will start patient on Bumex drip at 1 mg and will monitor patient's daily weights. Patient was on very low-dose of Levophed therefore we will start patient on midodrine 10 mg every 6 hours and wean off Levophed entirely. Patient is nasogastric tube was not visualized had x-ray, but on auscultation air was audible in the stomach when hand was placed through the nasogastric tube. Will discontinue patient's vancomycin and Zosyn if his MRSA is negative and will transition to azithromycin and Rocephin. 03/01/2025: Patient seen and examined at bedside this morning. Overnight patient went into A-fib with RVR and he finishes bolus of amiodarone. Patient had a documented urine output of 150, but that she states 1 were very wet. His Bumex drip finished overnight and they were not able to start more Bumex drip as there was not available in the pharmacy overnight. Patient's weight did go down from 249 to 247 kg. Blood cultures have been negative in 48 hours and MRSA nares negative. Will discontinue vancomycin and Zosyn and will start azithromycin and Rocephin. Patient's ventilator requirements have been unchanged, but has been saturating in the 94% therefore we will try and wean down on oxygen requirements. His blood pressure has been stable off Levophed and only on midodrine. His kidney function has been worsening, but expect improvement with more diuresis. Started Amiodarone 200mg qday. 03/02/2025: No overnight events, todays weight 246, we will continue bumex drip. NIF today as -12, we will re-evaluate tomorrow to attempt extubation. Midodrine decreased to 5 q6hr 03/03/2025: Patient was seen examined at bedside this morning. No acute overnight events. Patient was taken off the Precedex yesterday night. Today's weight is 242 kg. Succesfull extubation today, will transition to bipap. 03/06/2025: Was notified by floors team that patient is tachypneic in the 40s with increased work of breathing, confusion, and agitation. He was AAOx 1 (name) and saying leave me alone. He continues to pull at his BIPAP and had to be restrained, with a sitter at bedside. His BIPAP settings were uptitrated from 10/5 to 16/6 without significant improvement of PCO2. Repeat ABG showed pH 7.37 with CO2 at 74. Floor team attempted to notify family with no answer. He remains confused and agitated. Patient to be intubated due to worsening respiratory effort. 03/06/2025: Patient was seen and examined at bedside this morning. He was sedated in the morning, but was weaned off. Patient was able to follow commands he understood and was able to at least answer yes and no questions. Patient was placed on spontaneous breathing trial, but his RSBI was in the 130s therefore patient was high risk to fail extubation at this time. Placed patient back on prior ventilator settings, will follow any sedation at this time as she is calm. Sedation will be placed if patient becomes agitated. Patient is diuresing well and his current weight today is 227 kilograms. Gave metolazone 10 mg x 1 today for additional diuresis and started tube feeds today. Will reattempt weaning parameters tomorrow for possible extubation. 03/07/2025: Patient seen and examined at bedside this morning. No overnight events. Patient's weight today was 226.4 kg. Patient's blood gas that showed a pH of 7.46, PCO2 of 53, and PO2 of 65 this most likely his baseline PCO2. Patient initially did not get his Bumex as it was discontinued the night prior, but today we will continue Bumex 1 mg twice daily. Chest x-ray that showed some more vascular congestion, but still on and physical exam was clear bilaterally. Patient passed spontaneous breathing trial and was extubated successfully today. At this time we will downgrade back to the medical floors. Exam Vital Signs Temp Pulse Resp BP Pulse Ox O2 Del Method O2 Flow Rate 97.6 F 97 32 H 130/78 96 Mechanical Ventilation 15 03/07/25 04:00 03/07/25 10:58 03/07/25 10:58 03/07/25 09:59 03/07/25 10:58 03/07/25 06:15 03/05/25 16:00 FiO2 35 03/07/25 10:58 Narrative Exam General: morbidly obese, able to follow commands Eyes: PERRL, EOMI. Anicteric, vision grossly intact. Ears: No ear pain, no ear discharge, Hearing grossly intact. Nose: No nasal discharge. Mouth/Throat: Moist mucous membranes, no redness, no lesions. Neck: Short neck non-tender, no cervical lymphadenopathy. Lungs: Clear BANG in upper lobes and decreased in Lower lobes. Cardio: Distant heart sounds likely due to body habitus, normal S1/S2, regular rhythm, no murmurs, no JVD Abdomen: Swollen lower abdomen around 1+, no palpable masses, peristalsis present, no guarding or rebound. Extremities: Symmetrical, no significant deformities, 1+ peripheral edema , non- tender, peripheral pulses presents. Skin: No rashes, no lesions, warm to touch, purplish discoloration on the right neck, nonpainful. Neuro: Able to follow commands, pupils reactive to light, able to move all extremities today. Objective Labs 03/07/25 05:09 03/07/25 05:09 Labs: Laboratory Results - last 24 hr 03/06/25 03/07/25 03/07/25 17:10 05:00 05:09 WBC 13.6 H RBC 4.51 Hgb 12.8 L Hct 39.8 L MCV 88 MCH 28.4 MCHC 32.2 RDW Std Deviation 44.9 H Plt Count 279 Neut % (Auto) 81 H Lymph % (Auto) 7 L Mcpherson % (Auto) 7 Eos % (Auto) 4 Baso % (Auto) 0 Neut # (Auto) 11.0 H Lymph # (Auto) 0.9 L Mcpherson # (Auto) 1.0 H Eos # (Auto) 0.5 Baso # (Auto) 0.0 Immature Gran # (Auto) 0.13 H Absolute Nucleated RBC 0.00 Immature Gran % 1 H Nucleated RBC % 0 Puncture Site Left Radial ABG pH 7.46 H ABG pCO2 53 H ABG pO2 65 L D ABG HCO3 38 H ABG O2 Saturation 93 ABG Base Excess 12 H VBG pH 7.50 VBG pCO2 50 VBG pO2 70 H VBG O2 Sat (Oswaldo) 95 L VBG Base Excess 13 H FiO2 35 Sodium 152 H Potassium 3.8 Chloride 109 H Carbon Dioxide 36.3 H Anion Gap 7 BUN 54 H Creatinine 1.5 H Estim Creat Clear Calc 89.6 eGFR 51 L BUN/Creatinine Ratio 36 H Glucose 197 H Calculated Osmolality 321 H Calcium 9.0 Corrected Calcium 9.8 Total Bilirubin 0.8 AST 41 H ALT 30 Alkaline Phosphatase 111 Total Protein 5.3 L Albumin 3.0 L Globulin 2.3 Albumin/Globulin Ratio 1.3 Procalcitonin 1.22 H ABG Interpretation ABG results: 02/27/25 02/28/25 03/01/25 06:55 04:57 04:39 ABG pH 7.27 L 7.37 D 7.41 ABG pCO2 57 H 48 44 ABG pO2 101 78 L D 69 L ABG HCO3 26 28 H 28 H ABG O2 Saturation 98 95 93 ABG Base Excess -2 2 3 VBG pH VBG pCO2 VBG pO2 VBG Base Excess 03/01/25 03/01/25 03/02/25 13:15 14:52 04:25 ABG pH Cancelled 7.41 7.45 ABG pCO2 Cancelled 45 42 ABG pO2 Cancelled 53 L* 66 L ABG HCO3 Cancelled 28 H 29 H ABG O2 Saturation Cancelled 85 L 92 ABG Base Excess Cancelled 3 5 H VBG pH VBG pCO2 VBG pO2 VBG Base Excess 03/03/25 03/05/25 03/05/25 04:40 16:30 16:55 ABG pH 7.45 Cancelled 7.34 L D ABG pCO2 43 Cancelled 72 H* D ABG pO2 72 L Cancelled 83 ABG HCO3 30 H Cancelled 38 H ABG O2 Saturation 94 Cancelled 95 ABG Base Excess 5 H Cancelled 9 H VBG pH VBG pCO2 VBG pO2 VBG Base Excess 03/05/25 03/06/25 03/06/25 23:36 01:48 05:22 ABG pH 7.37 7.34 L 7.52 H D ABG pCO2 67 H 74 H* 47 D ABG pO2 150 H D 88 D 160 H D ABG HCO3 38 H 40 H 38 H ABG O2 Saturation 99 H 96 100 H ABG Base Excess 10 H 11 H 13 H VBG pH VBG pCO2 VBG pO2 VBG Base Excess 03/06/25 03/07/25 17:10 05:00 ABG pH 7.46 H ABG pCO2 53 H ABG pO2 65 L D ABG HCO3 38 H ABG O2 Saturation 93 ABG Base Excess 12 H VBG pH 7.50 VBG pCO2 50 VBG pO2 70 H VBG Base Excess 13 H Quality Measures Quality Measures sepsis Current suspected stage: ruled out Possible source: pulmonary Blood cultures ordered: completed in ED Antibiotic ordered: No Advance care planning discussed with:: patient and other (parents) Assessment & Plan Assessment Current Active Medications: Generic Name Dose Route Start Last Admin Trade Name Freq PRN Reason Stop Dose Admin Acetaminophen 650 mg 02/27/25 09:24 Acetaminophen 325 Mg Tablet PO 03/29/25 09:23 Q4HR PRN PAIN SCALE 1-3 (mild Al Hydrox/Mg Hydrox/Simethicone 30 ml 02/27/25 09:24 Mg Hyd/Al Hyd/Virgilio (Maalox Reg) Susp 30 Ml Udc PO 03/29/25 09:23 Q4HR PRN Heartburn or Upset Stomach Amiodarone HCl 200 mg 03/01/25 09:00 03/07/25 09:13 Amiodarone Hcl 200 Mg Tablet PO 03/31/25 08:59 200 mg QDAY KOURTNEY Administration Bumetanide 1 mg 03/07/25 09:00 03/07/25 09:13 Bumetanide Inj 0.25 Mg/Ml Vial 4 Ml IVP 04/06/25 08:59 1 mg BID KOURTNEY Administration Dextrose 25 ml 03/03/25 08:20 Dextrose 50%-Water Inj 50 Ml Syringe IV 04/02/25 08:19 Q15MIN PRN BG 50-70 responsive npo pt Dextrose 50 ml 03/03/25 08:20 Dextrose 50%-Water Inj 50 Ml Syringe IV 04/02/25 08:19 Q15MIN PRN BG <50 OR BG <70 & pt unresponsive Glucagon 1 mg 03/03/25 08:20 Glucagon Inj 1 Mg Vial IM Q15MIN PRN BG <70, and no IV access Dexmedetomidine/Sodium Chloride 200 mcg in 50 mls @ 11.37 mls/hr 03/06/25 18:38 03/07/25 07:08 Precedex Ivpb IV 04/05/25 18:37 0.2 mcg/kg/hr .Q4H24M PRN 11.37 mls/hr Per PROTOCOL Administration Protocol 0.2 MCG/KG/HR Insulin Glargine 14 unit 03/05/25 21:00 03/05/25 23:28 Insulin Glargine (Lantus) 5 Unit/0.05 Ml (Per 5 Units) SC 04/04/25 20:59 14 unit HS KOURTNEY Administration Insulin Human Lispro 0 unit 03/06/25 06:00 03/07/25 13:08 Insulin Lispro (Admelog) 1 Unit/0.01 Ml Unit SC 04/05/25 05:59 1 unit Q6H KOURTNEY Administration Protocol Magnesium Hydroxide 30 ml 02/27/25 09:24 Milk Of Magnesia Susp 30 Ml Udc PO 03/29/25 09:23 QDAY PRN CONSTIPATION Metoprolol Succinate 100 mg 03/03/25 21:00 03/07/25 09:13 Metoprolol Succinate Xl 25 Mg Tabcr PO 04/02/25 20:59 100 mg BID KOURTNEY Administration Ondansetron HCl 4 mg 03/05/25 20:46 03/05/25 20:55 Ondansetron Inj 2 Mg/Ml Inj 2 Ml IV 04/04/25 20:45 4 mg Q6HR PRN Administration NAUSEA OR VOMITING Protocol Pantoprazole Sodium 40 mg 02/27/25 11:15 03/07/25 09:14 Pantoprazole Inj 40 Mg Vial IV 03/29/25 11:14 40 mg QDAY KOURTNEY Administration Rivaroxaban 20 mg 03/04/25 17:30 03/06/25 18:25 Rivaroxaban 10 Mg Tablet PO 04/03/25 17:29 20 mg WSUPPER KOURTNEY Administration Plan 64-year-old male with past medical history of DM2, hypertension, and A-fib was admitted to the ICU on 02/27/2025 for shock and acute hypoxic respiratory failure. 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 encephalopathy, resolved Patient able to follow instructions today and was more awake CVS: #Shock, resolved #CHF Patient's chest x-ray today showed no change net balance -0.7 kg Echo could not visualize all chambers and could not provide ejection fraction Bumex 1 mg twice daily Metolazone 10 mg x 1 Daily weights #Hx of A-fib [id number] score of 3 points indicating 3.2% risk of stroke per year Has bled score of 0 Continue PO amiodarone 200 mg qday Continue metoprolol succinate 100 mg BID Continue Xarelto 20 mg daily Echo could not visualize all chambers Respiratory: #Acute on chronic hypoxic and hypercapnic respiratory failure #Community-acquired pneumonia Patient was intubated on 02/27/2025, extubated 03/03/2025 and reintubated on 03/06/2025 Blood gas today show improvement with pH of 7.46, PCO2 of 53, and PO2 of 65 Finish Rocephin (03/06/2025) Continue Bipap at night and is patient sleeps during the day Renal: #KENIA, improving #Metabolic alkalosis Creatinine today 1.5, baseline is around 1 Alkalosis most likely due to compensation versus contraction alkalosis from diuresis Will continue Bumex 1 mg twice daily, Metolazone 10 mg x 1 again today Avoid nephrotoxic agent Renally dose medication GI: stable Endo: #Morbid obesity Patient has a BMI of 79.5 #DM2 A1C 7.6 on 03/05/2025 glargine 14 unit HS ISS Hypoglycemia protocol ordered Heme: #Leukocytosis uptrending but no fevers ID: #Community-acquired pneumonia Finish Rocephin (03/06/2025) Hospital Maintenance: Diet: NPO as is on bipap. DVT ppx: Xarelto GI ppx: protonix IV lines: PIV Fuller: Pure wick Code status: Full code Dispo: ICU for acute on chronic hypoxic and hypercapnic respiratory failure. Case disclosed with Attending Dr. Deon Cornejo PGY1
[2025-03-07 14:10] LABS: Base Excess, Venous 14 (-3-3); O2 Saturation, Venous 92 % (96-97); PCO2, Venous 47 mmHg (36-56); PO2, Venous 61 mmHg (15-58); pH, Venous 7.52 (7.33-7.66)
--- NOTE | 2025-03-07 15:07 | ESPR_ITS ---
<Statement entered by Lenora John MD - 03/12/25 08:37> I personally examined the patient with PGY 3 Dr. Leonel Wilder agree with the treatment plan recommendation as documented patient is intubated successfully has morbid obesity sleep apnea as well as right heart failure continues to make slow progress will continue to monitor the patient with primary team Documentation for date of: 03/07/25 Subjective Subjective Interval history: Patient seen and examined. No overnight events. Labs and vitals reviewed. Extubated on BIPAP Exam Vital Signs Temp Pulse Resp BP Pulse Ox O2 Del Method O2 Flow Rate 97.6 F 99 20 130/78 96 Mechanical Ventilation 15 03/07/25 04:00 03/07/25 14:38 03/07/25 14:38 03/07/25 09:59 03/07/25 14:38 03/07/25 06:15 03/05/25 16:00 FiO2 35 03/07/25 14:38 Narrative Exam General: Awake. Morbidly obese. Anasarca HEENT: Normocephalic, atraumatic, mucous membranes moist. Heart: Irregular rate and rhythm, no murmurs. Lungs: Clear to auscultation with no wheezing or crackles. Abdomen: Soft, nondistended, nontender, positive bowel sounds. ?No guarding or rebound tenderness. Neurologic: Alert and oriented x3, no gross neurological deficit, and patient able to move all 4 extremities. Extremities: Bilateral 4+ pitting pedal edema extending up to the abdomen. Scrotal edema noted Skin: No rash or ecchymoses. Objective Labs 03/07/25 05:09 03/07/25 05:09 Labs: Laboratory Results - last 24 hr 03/06/25 03/07/25 03/07/25 17:10 05:00 05:09 WBC 13.6 H RBC 4.51 Hgb 12.8 L Hct 39.8 L MCV 88 MCH 28.4 MCHC 32.2 RDW Std Deviation 44.9 H Plt Count 279 Neut % (Auto) 81 H Lymph % (Auto) 7 L [place] % (Auto) 7 Eos % (Auto) 4 Baso % (Auto) 0 Neut # (Auto) 11.0 H Lymph # (Auto) 0.9 L [place] # (Auto) 1.0 H Eos # (Auto) 0.5 Baso # (Auto) 0.0 Immature Gran # (Auto) 0.13 H Absolute Nucleated RBC 0.00 Immature Gran % 1 H Nucleated RBC % 0 Puncture Site Left Radial ABG pH 7.46 H ABG pCO2 53 H ABG pO2 65 L D ABG HCO3 38 H ABG O2 Saturation 93 ABG Base Excess 12 H VBG pH 7.50 VBG pCO2 50 VBG pO2 70 H VBG O2 Sat (Oswaldo) 95 L VBG Base Excess 13 H FiO2 35 Sodium 152 H Potassium 3.8 Chloride 109 H Carbon Dioxide 36.3 H Anion Gap 7 BUN 54 H Creatinine 1.5 H Estim Creat Clear Calc 89.6 eGFR 51 L BUN/Creatinine Ratio 36 H Glucose 197 H Calculated Osmolality 321 H Calcium 9.0 Corrected Calcium 9.8 Total Bilirubin 0.8 AST 41 H ALT 30 Alkaline Phosphatase 111 Total Protein 5.3 L Albumin 3.0 L Globulin 2.3 Albumin/Globulin Ratio 1.3 Procalcitonin 1.22 H 03/07/25 14:03 WBC RBC Hgb Hct MCV MCH MCHC RDW Std Deviation Plt Count Neut % (Auto) Lymph % (Auto) [place] % (Auto) Eos % (Auto) Baso % (Auto) Neut # (Auto) Lymph # (Auto) [place] # (Auto) Eos # (Auto) Baso # (Auto) Immature Gran # (Auto) Absolute Nucleated RBC Immature Gran % Nucleated RBC % Puncture Site ABG pH ABG pCO2 ABG pO2 ABG HCO3 ABG O2 Saturation ABG Base Excess VBG pH 7.52 VBG pCO2 47 VBG pO2 61 H VBG O2 Sat (Oswaldo) 92 L VBG Base Excess 14 H FiO2 Sodium Potassium Chloride Carbon Dioxide Anion Gap BUN Creatinine Estim Creat Clear Calc eGFR BUN/Creatinine Ratio Glucose Calculated Osmolality Calcium Corrected Calcium Total Bilirubin AST ALT Alkaline Phosphatase Total Protein Albumin Globulin Albumin/Globulin Ratio Procalcitonin ABG Interpretation ABG results: 02/27/25 02/28/25 03/01/25 06:55 04:57 04:39 ABG pH 7.27 L 7.37 D 7.41 ABG pCO2 57 H 48 44 ABG pO2 101 78 L D 69 L ABG HCO3 26 28 H 28 H ABG O2 Saturation 98 95 93 ABG Base Excess -2 2 3 VBG pH VBG pCO2 VBG pO2 VBG Base Excess 03/01/25 03/01/25 03/02/25 13:15 14:52 04:25 ABG pH Cancelled 7.41 7.45 ABG pCO2 Cancelled 45 42 ABG pO2 Cancelled 53 L* 66 L ABG HCO3 Cancelled 28 H 29 H ABG O2 Saturation Cancelled 85 L 92 ABG Base Excess Cancelled 3 5 H VBG pH VBG pCO2 VBG pO2 VBG Base Excess 03/03/25 03/05/25 03/05/25 04:40 16:30 16:55 ABG pH 7.45 Cancelled 7.34 L D ABG pCO2 43 Cancelled 72 H* D ABG pO2 72 L Cancelled 83 ABG HCO3 30 H Cancelled 38 H ABG O2 Saturation 94 Cancelled 95 ABG Base Excess 5 H Cancelled 9 H VBG pH VBG pCO2 VBG pO2 VBG Base Excess 03/05/25 03/06/25 03/06/25 23:36 01:48 05:22 ABG pH 7.37 7.34 L 7.52 H D ABG pCO2 67 H 74 H* 47 D ABG pO2 150 H D 88 D 160 H D ABG HCO3 38 H 40 H 38 H ABG O2 Saturation 99 H 96 100 H ABG Base Excess 10 H 11 H 13 H VBG pH VBG pCO2 VBG pO2 VBG Base Excess 03/06/25 03/07/25 03/07/25 17:10 05:00 14:03 ABG pH 7.46 H ABG pCO2 53 H ABG pO2 65 L D ABG HCO3 38 H ABG O2 Saturation 93 ABG Base Excess 12 H VBG pH 7.50 7.52 VBG pCO2 50 47 VBG pO2 70 H 61 H VBG Base Excess 13 H 14 H Quality Measures Quality Measures sepsis Current suspected stage: ruled out Possible source: pulmonary Blood cultures ordered: completed in ED Antibiotic ordered: Yes Advance care planning discussed with:: patient Assessment & Plan Assessment Current Active Medications: Generic Name Dose Route Start Last Admin Trade Name Freq PRN Reason Stop Dose Admin Acetaminophen 650 mg 02/27/25 09:24 Acetaminophen 325 Mg Tablet PO 03/29/25 09:23 Q4HR PRN PAIN SCALE 1-3 (mild Al Hydrox/Mg Hydrox/Simethicone 30 ml 02/27/25 09:24 Mg Hyd/Al Hyd/Virgilio (Maalox Reg) Susp 30 Ml Udc PO 03/29/25 09:23 Q4HR PRN Heartburn or Upset Stomach Amiodarone HCl 200 mg 03/01/25 09:00 03/07/25 09:13 Amiodarone Hcl 200 Mg Tablet PO 03/31/25 08:59 200 mg QDAY KOURTNEY Administration Bumetanide 1 mg 03/07/25 09:00 03/07/25 09:13 Bumetanide Inj 0.25 Mg/Ml Vial 4 Ml IVP 04/06/25 08:59 1 mg BID KOURTNEY Administration Dextrose 25 ml 03/03/25 08:20 Dextrose 50%-Water Inj 50 Ml Syringe IV 04/02/25 08:19 Q15MIN PRN BG 50-70 responsive npo pt Dextrose 50 ml 03/03/25 08:20 Dextrose 50%-Water Inj 50 Ml Syringe IV 04/02/25 08:19 Q15MIN PRN BG <50 OR BG <70 & pt unresponsive Glucagon 1 mg 03/03/25 08:20 Glucagon Inj 1 Mg Vial IM Q15MIN PRN BG <70, and no IV access Dexmedetomidine/Sodium Chloride 200 mcg in 50 mls @ 11.37 mls/hr 03/06/25 18:38 03/07/25 07:08 Precedex Ivpb IV 04/05/25 18:37 0.2 mcg/kg/hr .Q4H24M PRN 11.37 mls/hr Per PROTOCOL Administration Protocol 0.2 MCG/KG/HR Insulin Glargine 14 unit 03/05/25 21:00 03/05/25 23:28 Insulin Glargine (Lantus) 5 Unit/0.05 Ml (Per 5 Units) SC 04/04/25 20:59 14 unit HS KOURTNEY Administration Insulin Human Lispro 0 unit 03/06/25 06:00 03/07/25 13:08 Insulin Lispro (Admelog) 1 Unit/0.01 Ml Unit SC 04/05/25 05:59 1 unit Q6H KOURTNEY Administration Protocol Magnesium Hydroxide 30 ml 02/27/25 09:24 Milk Of Magnesia Susp 30 Ml Udc PO 03/29/25 09:23 QDAY PRN CONSTIPATION Metoprolol Succinate 100 mg 03/03/25 21:00 03/07/25 09:13 Metoprolol Succinate Xl 25 Mg Tabcr PO 04/02/25 20:59 100 mg BID KOURTNEY Administration Ondansetron HCl 4 mg 03/05/25 20:46 03/05/25 20:55 Ondansetron Inj 2 Mg/Ml Inj 2 Ml IV 04/04/25 20:45 4 mg Q6HR PRN Administration NAUSEA OR VOMITING Protocol Pantoprazole Sodium 40 mg 02/27/25 11:15 03/07/25 09:14 Pantoprazole Inj 40 Mg Vial IV 03/29/25 11:14 40 mg QDAY KOUTRNEY Administration Rivaroxaban 20 mg 03/04/25 17:30 03/06/25 18:25 Rivaroxaban 10 Mg Tablet PO 04/03/25 17:29 20 mg WSUPPER KOURTNEY Administration Plan Plan 64-year-old male with significant past medical history of hypertension, diabetes mellitus, A-fib was admitted to the ICU on 02/27/2025 after coming in with altered mental status and shortness of breath, intubated for acute hypoxic respiratory failure and had suspected obesity hypoventilation syndrome/obstructive sleep apnea/pneumonia and acute kidney injury. Subsequently downgraded and cardiology has been consulted for suspected heart failure. #Right congestive heart failure #Possible cardiorenal syndrome Echo on this admission showed poor quality images secondary to the patient's body habitus so was a technically limited study. Patient is comfortably laying flat without experiencing increased shortness of breath. He is requiring supplemental O2 at 5-6L. Suspect chronic right heart failure in the setting of chronic obesity hypoventilation syndrome and obstructive sleep apnea. There is diffuse anasarca, which was worse on admission. After receiving diuresis has been improving. -hold diuresis with bumetanide 2 mg IV BID, due to contraction alkalosis -evidence has shown that adding acetazolamide in combination with a loop diuretic has shown to be beneficial and prevention of C.A. -Consider adding spironolactone when KENIA improves -Continue with BiPAP therapy at night -Monitor strict I&Os -Limit sodium intake -Fluid restrictions #Atrial fibrillation, rate controlled Patient notes positive history of afib. He had previously been on metoprolol succinate 100 mg BID. Currently appears rate-controlled in the 100s. [id number] score 4 -Continue with home metoprolol succinate 100 mg BID -Continue with amiodarone 200 mg qday -Patient may be started on anticoagulation if there are no contraindications, agree with Xarelto 20 mg qday -Keep potassium >4.0 and mag >2.0 Rest of conditions to continue current management per primary team: #Acute hypoxic respiratory failure #Morbid obesity #OHS/BASIA #Community acquired pneumonia #Elevated LFTs #Hyperbilirubinemia #History of type 2 diabetes #Lactic acidosis #KENIA on CKD - Patient's care was discussed with my attending physician, Dr. Alvaro Parikh MD Internal Medicine PGY-3
--- NOTE | 2025-03-07 16:57 | ESPR_ITS ---
<Statement entered by Pavel Mendoza MD - 03/13/25 09:28> I reviewed above note and agree with findings and plans. I have also personally examined the patient with medicine team and went over assessment and plan with medical team including internet application developer and resident physician. <Statement entered by Poncho Espinosa MD - 03/09/25 14:56> Senior Resident Attestation: I supervised/discussed management plan with internet application developer physician Dr. Ahumada, and was involved in the care of this patient. I personally saw and examined the patient and discussed the assessment and plan with the entire medicine team, including my attending. I agree with the assessment and plan as documented. Patient was extubated and downgraded to telemetry for continuation of care. Will keep him on BiPAP overnight and monitor. Patient's care was discussed with attending physician, Dr. Mendoza. Poncho Espinosa MD PGY-2. Documentation for date of: 03/07/25 Subjective Subjective Interval history: Patient is initially intubated on 02/27/2025 hypoxic respiratory failure and admitted in the ICU. Patient was later reextubated on 03/03/2025, downgraded to floors for further management. But unfortunately on 03/05/2025 as patient is still having carbon dioxide retention on BiPAP, patient is upgraded to ICU for further management and patient got intubated on 03/05/2025. Patient was extubated on 03/07/2025 and was downgraded to floors for further management. Exam Vital Signs Temp Pulse Resp BP Pulse Ox O2 Del Method O2 Flow Rate 97.8 F 100 20 118/83 99 Oxy Mask 10 03/07/25 12:00 03/07/25 15:00 03/07/25 14:38 03/07/25 15:00 03/07/25 15:00 03/07/25 12:00 03/07/25 12:00 FiO2 35 03/07/25 14:38 Narrative Exam General: Awake. Morbidly obese. Anasarca HEENT: Normocephalic, atraumatic, mucous membranes moist. Heart: Irregular rate and rhythm, no murmurs. Lungs: Clear to auscultation with no wheezing or crackles. Abdomen: Soft, nondistended, nontender, positive bowel sounds. ?No guarding or rebound tenderness. Neurologic: Alert and oriented x3, no gross neurological deficit, and patient able to move all 4 extremities. Extremities: Bilateral 4+ pitting pedal edema extending up to the abdomen. Scrotal edema noted Skin: No rash or ecchymoses. Objective Labs 03/07/25 05:09 03/07/25 05:09 Labs: Laboratory Results - last 24 hr 03/06/25 03/07/25 03/07/25 17:10 05:00 05:09 WBC 13.6 H RBC 4.51 Hgb 12.8 L Hct 39.8 L MCV 88 MCH 28.4 MCHC 32.2 RDW Std Deviation 44.9 H Plt Count 279 Neut % (Auto) 81 H Lymph % (Auto) 7 L [place] % (Auto) 7 Eos % (Auto) 4 Baso % (Auto) 0 Neut # (Auto) 11.0 H Lymph # (Auto) 0.9 L [place] # (Auto) 1.0 H Eos # (Auto) 0.5 Baso # (Auto) 0.0 Immature Gran # (Auto) 0.13 H Absolute Nucleated RBC 0.00 Immature Gran % 1 H Nucleated RBC % 0 Puncture Site Left Radial ABG pH 7.46 H ABG pCO2 53 H ABG pO2 65 L D ABG HCO3 38 H ABG O2 Saturation 93 ABG Base Excess 12 H VBG pH 7.50 VBG pCO2 50 VBG pO2 70 H VBG O2 Sat (Oswaldo) 95 L VBG Base Excess 13 H FiO2 35 Sodium 152 H Potassium 3.8 Chloride 109 H Carbon Dioxide 36.3 H Anion Gap 7 BUN 54 H Creatinine 1.5 H Estim Creat Clear Calc 89.6 eGFR 51 L BUN/Creatinine Ratio 36 H Glucose 197 H Calculated Osmolality 321 H Calcium 9.0 Corrected Calcium 9.8 Total Bilirubin 0.8 AST 41 H ALT 30 Alkaline Phosphatase 111 Total Protein 5.3 L Albumin 3.0 L Globulin 2.3 Albumin/Globulin Ratio 1.3 Procalcitonin 1.22 H 03/07/25 14:03 WBC RBC Hgb Hct MCV MCH MCHC RDW Std Deviation Plt Count Neut % (Auto) Lymph % (Auto) [place] % (Auto) Eos % (Auto) Baso % (Auto) Neut # (Auto) Lymph # (Auto) [place] # (Auto) Eos # (Auto) Baso # (Auto) Immature Gran # (Auto) Absolute Nucleated RBC Immature Gran % Nucleated RBC % Puncture Site ABG pH ABG pCO2 ABG pO2 ABG HCO3 ABG O2 Saturation ABG Base Excess VBG pH 7.52 VBG pCO2 47 VBG pO2 61 H VBG O2 Sat (Oswaldo) 92 L VBG Base Excess 14 H FiO2 Sodium Potassium Chloride Carbon Dioxide Anion Gap BUN Creatinine Estim Creat Clear Calc eGFR BUN/Creatinine Ratio Glucose Calculated Osmolality Calcium Corrected Calcium Total Bilirubin AST ALT Alkaline Phosphatase Total Protein Albumin Globulin Albumin/Globulin Ratio Procalcitonin ABG Interpretation ABG results: 02/27/25 02/28/25 03/01/25 06:55 04:57 04:39 ABG pH 7.27 L 7.37 D 7.41 ABG pCO2 57 H 48 44 ABG pO2 101 78 L D 69 L ABG HCO3 26 28 H 28 H ABG O2 Saturation 98 95 93 ABG Base Excess -2 2 3 VBG pH VBG pCO2 VBG pO2 VBG Base Excess 03/01/25 03/01/25 03/02/25 13:15 14:52 04:25 ABG pH Cancelled 7.41 7.45 ABG pCO2 Cancelled 45 42 ABG pO2 Cancelled 53 L* 66 L ABG HCO3 Cancelled 28 H 29 H ABG O2 Saturation Cancelled 85 L 92 ABG Base Excess Cancelled 3 5 H VBG pH VBG pCO2 VBG pO2 VBG Base Excess 03/03/25 03/05/25 03/05/25 04:40 16:30 16:55 ABG pH 7.45 Cancelled 7.34 L D ABG pCO2 43 Cancelled 72 H* D ABG pO2 72 L Cancelled 83 ABG HCO3 30 H Cancelled 38 H ABG O2 Saturation 94 Cancelled 95 ABG Base Excess 5 H Cancelled 9 H VBG pH VBG pCO2 VBG pO2 VBG Base Excess 03/05/25 03/06/25 03/06/25 23:36 01:48 05:22 ABG pH 7.37 7.34 L 7.52 H D ABG pCO2 67 H 74 H* 47 D ABG pO2 150 H D 88 D 160 H D ABG HCO3 38 H 40 H 38 H ABG O2 Saturation 99 H 96 100 H ABG Base Excess 10 H 11 H 13 H VBG pH VBG pCO2 VBG pO2 VBG Base Excess 03/06/25 03/07/2525 17:10 05:00 14:03 ABG pH 7.46 H ABG pCO2 53 H ABG pO2 65 L D ABG HCO3 38 H ABG O2 Saturation 93 ABG Base Excess 12 H VBG pH 7.50 7.52 VBG pCO2 50 47 VBG pO2 70 H 61 H VBG Base Excess 13 H 14 H Quality Measures Quality Measures sepsis Current suspected stage: ruled out Possible source: pulmonary Blood cultures ordered: completed in ED Antibiotic ordered: No Advance care planning discussed with:: patient Assessment & Plan Assessment Current Active Medications: Generic Name Dose Route Start Last Admin Trade Name Freq PRN Reason Stop Dose Admin Acetaminophen 650 mg 02/27/25 09:24 Acetaminophen 325 Mg Tablet PO 03/29/25 09:23 Q4HR PRN PAIN SCALE 1-3 (mild Al Hydrox/Mg Hydrox/Simethicone 30 ml 02/27/25 09:24 Mg Hyd/Al Hyd/Virgilio (Maalox Reg) Susp 30 Ml Udc PO 03/29/25 09:23 Q4HR PRN Heartburn or Upset Stomach Amiodarone HCl 200 mg 03/01/25 09:00 03/07/25 09:13 Amiodarone Hcl 200 Mg Tablet PO 03/31/25 08:59 200 mg QDAY KOURTNEY Administration Bumetanide 1 mg 03/07/25 09:00 03/07/25 09:13 Bumetanide Inj 0.25 Mg/Ml Vial 4 Ml IVP 04/06/25 08:59 1 mg BID KOURTNEY Administration Dextrose 25 ml 03/03/25 08:20 Dextrose 50%-Water Inj 50 Ml Syringe IV 04/02/25 08:19 Q15MIN PRN BG 50-70 responsive npo pt Dextrose 50 ml 03/03/25 08:20 Dextrose 50%-Water Inj 50 Ml Syringe IV 04/02/25 08:19 Q15MIN PRN BG <50 OR BG <70 & pt unresponsive Glucagon 1 mg 03/03/25 08:20 Glucagon Inj 1 Mg Vial IM Q15MIN PRN BG <70, and no IV access Insulin Glargine 14 unit 03/05/25 21:00 03/05/25 23:28 Insulin Glargine (Lantus) 5 Unit/0.05 Ml (Per 5 Units) SC 04/04/25 20:59 14 unit HS KOURTNEY Administration Insulin Human Lispro 0 unit 03/06/25 06:00 03/07/25 13:08 Insulin Lispro (Admelog) 1 Unit/0.01 Ml Unit SC 04/05/25 05:59 1 unit Q6H KOURTNEY Administration Protocol Magnesium Hydroxide 30 ml 02/27/25 09:24 Milk Of Magnesia Susp 30 Ml Udc PO 03/29/25 09:23 QDAY PRN CONSTIPATION Metoprolol Succinate 100 mg 03/03/25 21:00 03/07/25 09:13 Metoprolol Succinate Xl 25 Mg Tabcr PO 04/02/25 20:59 100 mg BID KOURTNEY Administration Ondansetron HCl 4 mg 03/05/25 20:46 03/05/25 20:55 Ondansetron Inj 2 Mg/Ml Inj 2 Ml IV 04/04/25 20:45 4 mg Q6HR PRN Administration NAUSEA OR VOMITING Protocol Pantoprazole Sodium 40 mg 02/27/25 11:15 03/07/25 09:14 Pantoprazole Inj 40 Mg Vial IV 03/29/25 11:14 40 mg QDAY KOURTNEY Administration Rivaroxaban 20 mg 03/04/25 17:30 03/06/25 18:25 Rivaroxaban 10 Mg Tablet PO 04/03/25 17:29 20 mg WSUPPER KOURTNEY Administration Plan A 64-year-old male with significant past medical history of hypertension, diabetes mellitus, A-fib is admitted to the ICU on 02/27/2025 in view of altered mental status and shortness of breath for acute hypoxic respiratory failure and was intubated in view of suspected obesity hypoventilation syndrome/obstructive sleep apnea/pneumonia and acute kidney injury. extubated on 03/03/2025 and downgraded to the floors for further management. But on 03/05/2025, as patient is still having CO2 retention on BiPAP, patient was upgraded to ICU for intubation and further management # Metabolic alkalosis Likely contraction in the setting of diuretic usage - Bicarb as of 03/08/2025 is 36.3 Plan - Decreased dose of Bumex from 1 mg IV oncce daily to 1 mg IV twice daily - Will continue to monitor renal function panel # Hypernatremia - As of 03/08/2025, sodium is 152 Plan - Water restriction was increased to 2000 cc - Encouraged to take oral fluids - Will continue to monitor renal panel and if does not improve, will start on D5W #Acute hypoxic respiratory failure, resolved # Likely due to BASIA/OHS Patient was intubated on 02/27/2025, extubated 03/03/2025, reintubated on 03/05 and extubated on 03/07 Cocci came back negative Plan - Oxygen as needed - Will continue bedtime CPAP # Heart failure, predominantly right heart failure # In the setting of suspected OHS/BASIA in the setting of morbid obesity - Patient did not have any previous history of heart disease as except for A-fib - Presented to the hospital with chief complaints of shortness of breath and fainting - On physical examination, patient is morbidly obese and anasarca noted, which could be due to right heart failure from BASIA/OHS - Chest x-ray showed bilateral moderate vascular congestion - Echo could not visualize all chambers and could not provide ejection fraction Plan - Started on bumex 1mg IV once daily - Will continue to monitor renal functions and electrolytes - Fluid and salt restriction - Consulted Dr. John, will appreciate his recommendations #KENIA vs Acute on CKD, improving Likely cardiorenal syndrome in the setting of severe right heart failure - Baseline creatinine is 0.9 in 2021 - Creatinine at the time of admission is 2.1, continued to uptrend and peaked at 3.1 on 03/01/2025, later started to downtrend and as of 03/07/2025, creatinine is 1.5 Plan - Will continue IV Bumex 1 Mg once daily for now - Will continue to monitor renal functions - Avoid nephrotoxic medications and renally dose medications #Hx of A-fib - Patient does have a history of A-fib - On metoprolol succinate 100 mg - Not on any anticoagulation - [id number] score is 4, history of diabetes mellitus, hypertension, CHF, male sex Plan - Continue PO amiodarone 200 mg qday - Continue metoprolol succinate 100 Mg p.o. twice daily - Will continue Xarelto - Cardiology Dr. John is consulted and will follow recommendations # Diabetes mellitus - HbA1c in 2021 is 6.1 - Repeat HbA1c is ordered Plan - Patient is started on insulin sliding scale and glargine 6 units subcutaneous at bedtime - Will adjust insulin based on blood sugars - Hypoglycemic protocol is in place #Transaminitis, improving #Hyperbilirubinemia, resolved Likely elevated in the setting of right heart failure Will continue to monitor on daily CMP # Morbid obesity Patient has a BMI of 79.5 Patient had history of gastric bypass 10 years ago, lost significant amount of weight at the time and regained it later Recommended to follow-up in outpatient basis to work on weight loss Hospital Maintenance: Diet: low sodium, carb consistent diet DVT ppx: Xarelto GI ppx: protonix IV lines: PIV Code status: Full code Patient plan of care was discussed with the attending physician, Dr. Mendoza and senior resident Dr. Francisca Ahumada, PGY1 Attending Provider Attestation/Addendum
[2025-03-07] MEDS: RIVAROXABAN 10 MG TABLET 20 MG PO (17:52)
[2025-03-08] VITALS (12 sets, daily range): BP systolic 117–148; BP diastolic 80–108; PULSE 84–110; RESP 17–33; TEMP 35.9–36.5; O2SAT 91–100; BMI 78.4
[2025-03-08] MEDS: INSULIN LISPRO (AdmeLOG) 1 UNIT/0.01 ML UNIT SC ×4 (01:00→23:36)
[2025-03-08 06:12] LABS: Basophils # (Auto) 0.1 Thou/mm3 (0.0-0.2); Basophils % (Auto) 0 % (0-2.5); Eosinophils # (Auto) 0.3 Thou/mm3 (0.0-0.5); Eosinophils % (Auto) 2 % (0-10); Hemoglobin 14.5 g/dL (13.5-16.0); Immature Granulocytes % (Auto) 1 % (0-0); Immature Granulocytes Auto 0.16 Thou/mm3 (0.00-0.00); Lymphocytes % (Auto) 6 % (10-50); Mean Corpuscular HGB Conc 31.5 g/dl (31.0-37.0); Mean Corpuscular Volume 92 fL (80-100); Monocytes # (Auto) 1.2 Thou/mm3 (0.0-0.8); Monocytes % (Auto) 7 % (0-12); Neutrophils # (Auto) 14.6 Thou/mm3 (1.8-7.7); Neutrophils % (Auto) 84 % (37-80); Nucleated Red Blood Cell % 0 /100 WBC (0); Platelet Count 228 Thou/mm3 (140-440); RDW Standard Deviation 47.5 fL (35.1-43.9); White Blood Count 17.3 Thou/mm3 (3.8-10.6)
[2025-03-08] MEDS: PANTOPRAZOLE INJ 40 MG VIAL IV (08:24)
[2025-03-08] MEDS: METOPROLOL SUCCINATE XL 25 MG TABCR 100 MG PO ×2 (08:25→20:17)
[2025-03-08] MEDS: AMIODARONE HCL 200 MG TABLET PO (08:25)
[2025-03-08 08:39] LABS: Alanine Aminotransferase 32 U/L (10-49); Albumin, Serum 3.2 gm/dL (3.4-4.8); Albumin/Globulin Ratio 1.3 (1.2-2.2); Alkaline Phosphatase 117 U/L (46-116); Anion Gap 8 (7-16); Aspartate Amino Transferase 48 U/L (0-34); BUN/Creatinine Ratio 36 Ratio (12-20); Bilirubin,Total 0.9 mg/dL (0.3-1.2); Blood Urea Nitrogen 50 mg/dL (9-23); Calcium (Corrected) 9.6 mg/dL (8.5-10.1); Carbon Dioxide 38.1 mMol/L (20.0-31.0); Chloride 101 mMol/L (98-107); Creatinine (Component) 1.4 mg/dL (0.6-1.3); Globulin 2.5 gm/dL (2.3-3.5); Glucose 195 mg/dL (74-106); Magnesium 1.9 mg/dL (1.6-2.6); Osmolality,Calculated 310 (275-295); Potassium 3.1 mMol/L (3.4-5.1); Sodium 147 mMol/L (136-145); Total Protein 5.7 gm/dL (5.7-8.2); eGFR 56 See Note
--- NOTE | 2025-03-08 11:11 | PC.SS ---
SS follow up note; SS met with patient in regards to discharge plan. SS informed patient that Dr's are recommending SNF. Patient agreeable to discharge to SNF. SS sent out SNF referrals through [employer] platform. PASSR completed as well. SS will present SNF choices to patient once available.
[2025-03-08] MEDS: POTASSIUM CHLORIDE 20 mEq TABCR 40 MEQ PO (11:30)
[2025-03-08 13:12] LABS: Albumin, Serum 3.1 gm/dL (3.4-4.8); Anion Gap 6 (7-16); BUN/Creatinine Ratio 40 Ratio (12-20); Blood Urea Nitrogen 48 mg/dL (9-23); Calcium 8.8 mg/dL (8.3-10.6); Calcium (Corrected) 9.5 mg/dL (8.5-10.1); Chloride 105 mMol/L (98-107); Creatinine (Component) 1.2 mg/dL (0.6-1.3); Estimated Creatinine Clearance 111.9 mL/min (>60); Glucose 222 mg/dL (74-106); Osmolality,Calculated 313 (275-295); Phosphorous 4.8 mg/dL (2.4-5.1); Potassium 3.2 mMol/L (3.4-5.1); Sodium 148 mMol/L (136-145); eGFR > 60 See Note
--- NOTE | 2025-03-08 17:49 | ESPR_ITS ---
<Statement entered by Pavel Mendoza MD - 03/13/25 09:31> I reviewed above note and agree with findings and plans. I have also personally examined the patient with medicine team and went over assessment and plan with medical team including operations intern and resident physician. <Statement entered by Ermias Torre MD - 03/10/25 10:41> Patient is an ICU downgrade for acute hypoxic respiratory failure secondary to BASIA and OHS. Will continue monitoring patient on BiPAP/CPAP and obtain frequent VBG/ABGs as he has been upgraded to ICU twice. Will continue with diuresis and trend creatinine. Case discussed with team. Ermias Torre MD PGY3 Documentation for date of: 03/08/25 Subjective Subjective Interval history: No acute overnight events reported. Pt is seen and examined at bedside. Pt is saturating 95% on 6L oxygen via oxy mask. Pt denies shortness of breath. Pt denies chest pain, palpitations, diznessness. Pt's bumex was held yesterday to due to increase bicarb on labs. Will resume bumex, will repeat renal panel and continue monitor labs. Pt is encouraged to use bipap over night. Vitals are stable, labs are reviewed, Pt's net balance is 480. Goal is to be net negative 2-3 L. Pt has no other complains. Exam Vital Signs Temp Pulse Resp BP Pulse Ox O2 Del Method O2 Flow Rate 97.2 F 104 H 23 H 132/96 H 91 L Room Air 6 03/08/25 16:00 03/08/25 16:00 03/08/25 16:00 03/08/25 16:00 03/08/25 16:00 03/08/25 16:03/08/25 12:00 FiO2 35 03/08/25 04:00 Narrative Exam General: Awake. Morbidly obese. Anasarca HEENT: Normocephalic, atraumatic, mucous membranes moist. Heart: Irregular rate and rhythm, no murmurs. Lungs: Clear to auscultation with no wheezing or crackles. Abdomen: Soft, nondistended, nontender, positive bowel sounds. ?No guarding or rebound tenderness. Neurologic: Alert and oriented x3, no gross neurological deficit, and patient able to move all 4 extremities. Extremities: Bilateral 2+ pitting pedal edema extending up to the abdomen. Skin: No rash or ecchymoses. Objective Labs 03/08/25 05:42 03/08/25 12:19 Labs: Laboratory Results - last 24 hr 03/08/25 03/08/25 03/08/25 05:42 07:34 12:19 WBC 17.3 H RBC 5.00 Hgb 14.5 Hct 46.0 MCV 92 MCH 29.0 MCHC 31.5 RDW Std Deviation 47.5 H Plt Count 228 D Neut % (Auto) 84 H Lymph % (Auto) 6 L [place] % (Auto) 7 Eos % (Auto) 2 Baso % (Auto) 0 Neut # (Auto) 14.6 H Lymph # (Auto) 1.0 Gregory # (Auto) 1.2 H Eos # (Auto) 0.3 Baso # (Auto) 0.1 Immature Gran # (Auto) 0.16 H Absolute Nucleated RBC 0.00 Immature Gran % 1 H Nucleated RBC % 0 Sodium 147 H 148 H Potassium 3.1 L D 3.2 L Chloride 101 105 Carbon Dioxide 38.1 H 37.0 H Anion Gap 8 6 L BUN 50 H 48 H Creatinine 1.4 H 1.2 Estim Creat Clear Calc 96.0 111.9 eGFR 56 L > 60 BUN/Creatinine Ratio 36 H 40 H Glucose 195 H 222 H Calculated Osmolality 310 H 313 H Calcium 9.0 8.8 Corrected Calcium 9.6 9.5 Phosphorus 4.8 Magnesium 1.9 Total Bilirubin 0.9 AST 48 H ALT 32 Alkaline Phosphatase 117 H Total Protein 5.7 Albumin 3.2 L 3.1 L Globulin 2.5 Albumin/Globulin Ratio 1.3 ABG Interpretation ABG results: 02/27/25 02/28/25 03/01/25 06:55 04:57 04:39 ABG pH 7.27 L 7.37 D 7.41 ABG pCO2 57 H 48 44 ABG pO2 101 78 L D 69 L ABG HCO3 26 28 H 28 H ABG O2 Saturation 98 95 93 ABG Base Excess -2 2 3 VBG pH VBG pCO2 VBG pO2 VBG Base Excess 03/01/25 03/01/25 03/02/25 13:15 14:52 04:25 ABG pH Cancelled 7.41 7.45 ABG pCO2 Cancelled 45 42 ABG pO2 Cancelled 53 L* 66 L ABG HCO3 Cancelled 28 H 29 H ABG O2 Saturation Cancelled 85 L 92 ABG Base Excess Cancelled 3 5 H VBG pH VBG pCO2 VBG pO2 VBG Base Excess 03/03/25 03/05/25 03/05/25 04:40 16:30 16:55 ABG pH 7.45 Cancelled 7.34 L D ABG pCO2 43 Cancelled 72 H* D ABG pO2 72 L Cancelled 83 ABG HCO3 30 H Cancelled 38 H ABG O2 Saturation 94 Cancelled 95 ABG Base Excess 5 H Cancelled 9 H VBG pH VBG pCO2 VBG pO2 VBG Base Excess 03/05/25 03/06/25 03/06/25 23:36 01:48 05:22 ABG pH 7.37 7.34 L 7.52 H D ABG pCO2 67 H 74 H* 47 D ABG pO2 150 H D 88 D 160 H D ABG HCO3 38 H 40 H 38 H ABG O2 Saturation 99 H 96 100 H ABG Base Excess 10 H 11 H 13 H VBG pH VBG pCO2 VBG pO2 VBG Base Excess 03/06/25 03/07/25 03/07/25 17:10 05:00 14:03 ABG pH 7.46 H ABG pCO2 53 H ABG pO2 65 L D ABG HCO3 38 H ABG O2 Saturation 93 ABG Base Excess 12 H VBG pH 7.50 7.52 VBG pCO2 50 47 VBG pO2 70 H 61 H VBG Base Excess 13 H 14 H Quality Measures Quality Measures sepsis Current suspected stage: ruled out Possible source: pulmonary Blood cultures ordered: completed in ED Antibiotic ordered: No Advance care planning discussed with:: patient Assessment & Plan Assessment Current Active Medications: Generic Name Dose Route Start Last Admin Trade Name Freq PRN Reason Stop Dose Admin Acetaminophen 650 mg 02/27/25 09:24 Acetaminophen 325 Mg Tablet PO 03/29/25 09:23 Q4HR PRN PAIN SCALE 1-3 (mild Al Hydrox/Mg Hydrox/Simethicone 30 ml 02/27/25 09:24 Mg Hyd/Al Hyd/Virgilio (Maalox Reg) Susp 30 Ml Udc PO 03/29/25 09:23 Q4HR PRN Heartburn or Upset Stomach Amiodarone HCl 200 mg 03/01/25 09:00 03/08/25 08:25 Amiodarone Hcl 200 Mg Tablet PO 03/31/25 08:59 200 mg QDAY KOURTNEY Administration Bumetanide 1 mg 03/07/25 09:00 03/07/25 09:13 Bumetanide Inj 0.25 Mg/Ml Vial 4 Ml IVP 04/06/25 08:59 1 mg BID KOURTNEY Administration Dextrose 25 ml 03/03/25 08:20 Dextrose 50%-Water Inj 50 Ml Syringe IV 04/02/25 08:19 Q15MIN PRN BG 50-70 responsive npo pt Dextrose 50 ml 03/03/25 08:20 Dextrose 50%-Water Inj 50 Ml Syringe IV 04/02/25 08:19 Q15MIN PRN BG <50 OR BG <70 & pt unresponsive Glucagon 1 mg 03/03/25 08:20 Glucagon Inj 1 Mg Vial IM Q15MIN PRN BG <70, and no IV access Insulin Glargine 6 unit 03/07/25 21:00 Insulin Glargine (Lantus) 5 Unit/0.05 Ml (Per 5 Units) SC 04/06/25 20:59 HS KOURTNEY Insulin Human Lispro 0 unit 03/06/25 06:00 03/08/25 12:36 Insulin Lispro (Admelog) 1 Unit/0.01 Ml Unit SC 04/05/25 05:59 1 unit Q6H KOURTNEY Administration Protocol Magnesium Hydroxide 30 ml 02/27/25 09:24 Milk Of Magnesia Susp 30 Ml Udc PO 03/29/25 09:23 QDAY PRN CONSTIPATION Metoprolol Succinate 100 mg 03/03/25 21:00 03/08/25 08:25 Metoprolol Succinate Xl 25 Mg Tabcr PO 04/02/25 20:59 100 mg BID KOURTNEY Administration Ondansetron HCl 4 mg 03/05/25 20:46 03/05/25 20:55 Ondansetron Inj 2 Mg/Ml Inj 2 Ml IV 04/04/25 20:45 4 mg Q6HR PRN Administration NAUSEA OR VOMITING Protocol Pantoprazole Sodium 40 mg 02/27/25 11:15 03/08/25 08:24 Pantoprazole Inj 40 Mg Vial IV 03/29/25 11:14 40 mg QDAY KOURTNEY Administration Rivaroxaban 20 mg 03/04/25 17:30 03/07/25 17:52 Rivaroxaban 10 Mg Tablet PO 04/03/25 17:29 20 mg WSUPPER [facility] Administration Plan A 64-year-old male with significant past medical history of hypertension, diabetes mellitus, A-fib is admitted to the ICU on 02/27/2025 in view of altered mental status and shortness of breath for acute hypoxic respiratory failure and was intubated in view of suspected obesity hypoventilation syndrome/obstructive sleep apnea/pneumonia and acute kidney injury. extubated on 03/03/2025 and downgraded to the floors for further management. But on 03/05/2025, as patient is still having CO2 retention on BiPAP,. #Acute hypoxic respiratory failure # Heart failure, predominantly right heart failure # In the setting of suspected OHS/BASIA in the setting of morbid obesity - Patient did not have any previous history of heart disease as except for A-fib - Presented to the hospital with chief complaints of shortness of breath and fainting - On physical examination, patient is morbidly obese and anasarca noted, which could be due to right heart failure from BASIA/OHS - Chest x-ray showed bilateral moderate vascular congestion - Echo could not visualize all chambers and could not provide ejection fraction -Patient was intubated on 02/27/2025, extubated 03/03/2025, reintubated on 03/05 and extubated on 03/07 -Cocci came back negative Plan -Supplemental oxygen as needed - Will continue bedtime CPAP - Started on bumex 1mg IV once daily - Will continue to monitor renal functions and electrolytes - Fluid and salt restriction - Consulted Dr. John, will appreciate his recommendations #Hypernatremia #hypokalemia #Metabolic alkalosis - As of 03/08/2025, sodium is 147, Potassium 3.1, Bicarb 38 -Likely in the setting of diureses Plan - Water restriction was increased to 2000 cc - Encouraged to take oral fluids - will continue to monitor labs -Potassium repleted #KENIA vs Acute on CKD, improving Likely cardiorenal syndrome in the setting of severe right heart failure - Baseline creatinine is 0.9 in 2021 - Creatinine at the time of admission is 2.1, continued to uptrend and peaked at 3.1 on 03/01/2025, later started to downtrend and as of 03/08/2025, creatinine is 1.2 Plan - Will continue IV Bumex 1 Mg twice daily - Will continue to monitor renal functions - Avoid nephrotoxic medications and renally dose medications #Hx of A-fib - Patient does have a history of A-fib - On metoprolol succinate 100 mg - Not on any anticoagulation - [id number] score is 4, history of diabetes mellitus, hypertension, CHF, male sex Plan - Continue PO amiodarone 200 mg qday - Continue metoprolol succinate 100 Mg p.o. twice daily - Will continue Xarelto - Cardiology Dr. John is consulted and will follow recommendations # Diabetes mellitus - HbA1c in 03/05/25 is 7.6 Plan - Patient is started on insulin sliding scale and glargine 6 units subcutaneous at bedtime - Will adjust insulin based on blood sugars - Hypoglycemic protocol is in place #Transaminitis #Hyperbilirubinemia, resolved Likely elevated in the setting of right heart failure Will continue to monitor on daily CMP # Morbid obesity Patient has a BMI of 79.5 Patient had history of gastric bypass 10 years ago, lost significant amount of weight at the time and regained it later Recommended to follow-up in outpatient basis to work on weight loss Hospital Maintenance: Diet: low sodium, carb consistent diet DVT ppx: Xarelto GI ppx: protonix IV lines: PIV Code status: Full code Assessment and plan discussed with my senior resident Dr. Torre & attending physician Dr. Kelly Sanchez (PGY-1)- Internal medicine resident
[2025-03-08] MEDS: RIVAROXABAN 10 MG TABLET 20 MG PO (18:30)
[2025-03-08] MEDS: BUMETANIDE INJ 0.25 MG/ML VIAL 4 ML 1 MG IVP (20:16)
--- NOTE | 2025-03-08 21:54 | ESPR_ITS ---
RE: KOFI CRAWFORD : 1960 DATE OF SERVICE: 03/08/2025 SUBJECTIVE: Kofi Crawford is a 64-year-old male with a past medical history of multiple medical problems admitted to the hospital with shortness of breath, obesity, sleep apnea. The patient had respiratory failure that has improved. Now he is transferred to telemetry and BiPAP, doing about the same. He is still having some shortness of breath, on BiPAP, tolerating well. No chest pain or shortness of breath is reported. No cardiac arrhythmias. The patient still has lot of issues overall, congestive heart failure with preserved ejection fraction. OBJECTIVE: Vital Signs: Blood pressure 132/90, pulse rate is 100, respirations 23, temperature normal. Neck: Supple. Lungs: Decreased breath sounds, distal. Heart: Heart sounds regular, distant. Abdomen: Morbidly obese and soft. Extremities: No edema. LABORATORY DATA: Showed hemoglobin 14, hematocrit is 46%, white count 17.3, slightly low potassium. DIAGNOSTIC DATA: Most recent ABG showed pH of 7.46, pCO2 of 65. IMPRESSION: 1. Atrial fibrillation, rate controlled, on metoprolol 100 b.i.d., currently stable. Recommended to continue metoprolol succinate 100 mg twice daily, amiodarone daily as well, correction of hypokalemia to maintain potassium close to 4. 2. Right heart failure, predominant right heart failure due to HFpEF and sleep apnea with pickwickian syndrome causing right heart failure _. Left ventricular function appears to be well preserved. The patient also has hypoxia, hypercapnia secondary to hypoventilation syndrome, obesity, sleep apnea. The patient will be continued on BiPAP as well. 3. Moderate obesity. 4. Pneumonia. 5. Type 2 diabetes mellitus. RECOMMENDATIONS: Continue BiPAP and current medications. DT: 20:08:04 TT: 21:04:00 Ref: [id number] - TID: [id number] [facility]
[2025-03-09] VITALS (13 sets, daily range): BP systolic 118–148; BP diastolic 80–102; PULSE 94–125; RESP 20–39; TEMP 36–36.2; O2SAT 97–100
[2025-03-09] MEDS: ONDANSETRON INJ 2 MG/ML INJ 2 ML 4 MG IV (03:49)
[2025-03-09] MEDS: INSULIN LISPRO (AdmeLOG) 1 UNIT/0.01 ML UNIT SC ×3 (05:08→23:52)
[2025-03-09 06:28] LABS: Basophils # (Auto) 0.1 Thou/mm3 (0.0-0.2); Basophils % (Auto) 0 % (0-2.5); Eosinophils # (Auto) 0.3 Thou/mm3 (0.0-0.5); Eosinophils % (Auto) 2 % (0-10); Hematocrit 47.5 % (41.0-53.0); Hemoglobin 14.6 g/dL (13.5-16.0); Immature Granulocytes % (Auto) 1 % (0-0); Immature Granulocytes Auto 0.22 Thou/mm3 (0.00-0.00); Lymphocytes % (Auto) 5 % (10-50); Mean Corpuscular HGB Conc 30.7 g/dl (31.0-37.0); Mean Corpuscular Hemoglobin 28.8 pg (25.0-35.0); Mean Corpuscular Volume 94 fL (80-100); Monocytes # (Auto) 1.8 Thou/mm3 (0.0-0.8); Monocytes % (Auto) 9 % (0-12); Neutrophils # (Auto) 16.2 Thou/mm3 (1.8-7.7); Neutrophils % (Auto) 83 % (37-80); Nucleated Red Blood Cell % 0 /100 WBC (0); Platelet Count 347 Thou/mm3 (140-440); RDW Standard Deviation 47.4 fL (35.1-43.9); Red Blood Count 5.07 Miln/mm3 (4.50-5.90); White Blood Count 19.5 Thou/mm3 (3.8-10.6)
[2025-03-09 06:35] LABS: Alanine Aminotransferase 29 U/L (10-49); Albumin, Serum 3.3 gm/dL (3.4-4.8); Albumin/Globulin Ratio 1.2 (1.2-2.2); Alkaline Phosphatase 129 U/L (46-116); Anion Gap 7 (7-16); Aspartate Amino Transferase 47 U/L (0-34); BUN/Creatinine Ratio 38 Ratio (12-20); Bilirubin,Total 0.7 mg/dL (0.3-1.2); Blood Urea Nitrogen 46 mg/dL (9-23); Calcium 8.9 mg/dL (8.3-10.6); Calcium (Corrected) 9.5 mg/dL (8.5-10.1); Carbon Dioxide 39.4 mMol/L (20.0-31.0); Chloride 103 mMol/L (98-107); Creatinine (Component) 1.2 mg/dL (0.6-1.3); Estimated Creatinine Clearance 111.9 mL/min (>60); Globulin 2.7 gm/dL (2.3-3.5); Glucose 218 mg/dL (74-106); Magnesium 1.7 mg/dL (1.6-2.6); Osmolality,Calculated 315 (275-295); Sodium 149 mMol/L (136-145); eGFR > 60 See Note
--- NOTE | 2025-03-09 07:55 | PC.NURSE ---
Dr. Ahumada notified of pt more lethargic and shallow breathing, moved to bipap
--- NOTE | 2025-03-09 07:56 | PC.SS ---
SS follow up note; SS contacted patient's father, Zia to present SNF choices patient's SNF choice is [facility]. SS contacted [facility] and they are willing to accept patient if [employer] approves. Patient is pending updated PT note for authorization.
[2025-03-09 08:32] LABS: Base Excess 10 (-3-3); HCO3 41 mEq/L (20-26); Inspired Oxygen, FIO2 35 %; O2 Saturation 95 % (91-98); PCO2 93 mmHg (32.0-48.0); PO2 81 mmHg (83-108); pH, Arterial 7.25 (7.35-7.45)
[2025-03-09 08:34] LABS: Allen Test Performed/OK; Puncture Site Left Radial
--- NOTE | 2025-03-09 08:45 | PC.NURSE ---
Dr. Ahumada and Dr. Hoffmann at bedside to assess pt, pt still lethargic and slow to follow commands. pCO2 reported to Dr. Ahumada and Dr. Arroyo at bedside of CO2 93. Ordered to repeat abg in 1 hour. charge nurse notified of CO2 93
[2025-03-09] MEDS: PANTOPRAZOLE INJ 40 MG VIAL IV (09:06)
[2025-03-09 10:33] LABS: Base Excess 10 (-3-3); HCO3 40 mEq/L (20-26); O2 Saturation 89 % (91-98); PCO2 85 mmHg (32.0-48.0); pH, Arterial 7.29 (7.35-7.45)
[2025-03-09 10:37] LABS: Inspired Oxygen, FIO2 35 %; PO2 57 mmHg (83-108)
[2025-03-09 10:38] LABS: Allen Test Not Performed; Puncture Site Left Radial
--- NOTE | 2025-03-09 17:06 | ESPR_ITS ---
<Statement entered by Pavel Mendoza MD - 03/13/25 12:10> I reviewed above note and agree with findings and plans. I have also personally examined the patient with medicine team and went over assessment and plan with medical team including machine learning intern and resident physician. <Statement entered by Poncho Espinosa MD - 03/11/25 09:14> Senior Resident Attestation: I supervised/discussed management plan with machine learning intern physician Dr. Ahumada, and was involved in the care of this patient. I personally saw and examined the patient and discussed the assessment and plan with the entire medicine team, including my attending. I agree with the assessment and plan as documented. Patient's care was discussed with attending physician, Dr. Mendoza. Poncho Espinosa MD PGY-2. Documentation for date of: 03/09/25 Subjective Subjective Interval history: Patient is seen and examined at the bedside Appears mildly drowsy for which patient was started on BiPAP, ABG is ordered Initial ABG showed pH 7.25, pCO2 93. Repeat ABG showed pH 7.29, pCO2 85, ABG oxygen saturation 89% for which FiO2 is increased to 45% Held Bumex morning dose. Will continue BiPAP for now. Repeat ABG is ordered, will follow-up with the results If ABG shows improvement of PaCO2, will wean him off BiPAP for few hours to allow intake of oral fluids, diet. If not, will continue BiPAP Edging Machine Catcher Dr. John is following the patient and will appreciate his recommendations Exam Vital Signs Temp Pulse Resp BP Pulse Ox O2 Del Method O2 Flow Rate 96.9 F 113 H 38 H 134/88 H 100 BiPAP 5 03/09/25 16:00 03/09/25 16:00 03/09/25 16:00 03/09/25 16:00 03/09/25 16:00 03/09/25 16:03/08/25 20:00 FiO2 45 03/09/25 16:00 Narrative Exam General: Awake. Morbidly obese. Anasarca. On BiPAP HEENT: Normocephalic, atraumatic, mucous membranes moist. Heart: Irregular rate and rhythm, no murmurs. Lungs: Clear to auscultation with no wheezing or crackles. Abdomen: Soft, nondistended, nontender, positive bowel sounds. ?No guarding or rebound tenderness. Neurologic: Alert and oriented x3, no gross neurological deficit, and patient able to move all 4 extremities. Extremities: Bilateral 4+ pitting pedal edema extending up to the abdomen. Scrotal edema noted Skin: No rash or ecchymoses. Objective Labs 03/09/25 05:55 03/09/25 05:55 Labs: Laboratory Results - last 24 hr 03/09/25 03/09/25 03/09/25 05:55 08:17 10:25 WBC 19.5 H RBC 5.07 Hgb 14.6 Hct 47.5 MCV 94 MCH 28.8 MCHC 30.7 L RDW Std Deviation 47.4 H Plt Count 347 D Neut % (Auto) 83 H Lymph % (Auto) 5 L [place] % (Auto) 9 Eos % (Auto) 2 Baso % (Auto) 0 Neut # (Auto) 16.2 H Lymph # (Auto) 1.0 [place] # (Auto) 1.8 H Eos # (Auto) 0.3 Baso # (Auto) 0.1 Immature Gran # (Auto) 0.22 H Absolute Nucleated RBC 0.00 Immature Gran % 1 H Nucleated RBC % 0 Puncture Site Left Radial Left Radial ABG pH 7.25 L D 7.29 L ABG pCO2 93 H* D 85 H* ABG pO2 81 L 57 L* D ABG HCO3 41 H 40 H ABG O2 Saturation 95 89 L ABG Base Excess 10 H 10 H FiO2 35 35 Sodium 149 H Potassium 4.0 D Chloride 103 Carbon Dioxide 39.4 H Anion Gap 7 BUN 46 H Creatinine 1.2 Estim Creat Clear Calc 111.9 eGFR > 60 BUN/Creatinine Ratio 38 H Glucose 218 H Calculated Osmolality 315 H Calcium 8.9 Corrected Calcium 9.5 Magnesium 1.7 Total Bilirubin 0.7 AST 47 H ALT 29 Alkaline Phosphatase 129 H Total Protein 6.0 Albumin 3.3 L Globulin 2.7 Albumin/Globulin Ratio 1.2 ABG Interpretation ABG results: 02/27/25 02/28/25 03/01/25 06:55 04:57 04:39 ABG pH 7.27 L 7.37 D 7.41 ABG pCO2 57 H 48 44 ABG pO2 101 78 L D 69 L ABG HCO3 26 28 H 28 H ABG O2 Saturation 98 95 93 ABG Base Excess -2 2 3 VBG pH VBG pCO2 VBG pO2 VBG Base Excess 03/01/25 03/01/25 03/02/25 13:15 14:52 04:25 ABG pH Cancelled 7.41 7.45 ABG pCO2 Cancelled 45 42 ABG pO2 Cancelled 53 L* 66 L ABG HCO3 Cancelled 28 H 29 H ABG O2 Saturation Cancelled 85 L 92 ABG Base Excess Cancelled 3 5 H VBG pH VBG pCO2 VBG pO2 VBG Base Excess 03/03/25 03/05/25 03/05/25 04:40 16:30 16:55 ABG pH 7.45 Cancelled 7.34 L D ABG pCO2 43 Cancelled 72 H* D ABG pO2 72 L Cancelled 83 ABG HCO3 30 H Cancelled 38 H ABG O2 Saturation 94 Cancelled 95 ABG Base Excess 5 H Cancelled 9 H VBG pH VBG pCO2 VBG pO2 VBG Base Excess 03/05/25 03/06/25 03/06/25 23:36 01:48 05:22 ABG pH 7.37 7.34 L 7.52 H D ABG pCO2 67 H 74 H* 47 D ABG pO2 150 H D 88 D 160 H D ABG HCO3 38 H 40 H 38 H ABG O2 Saturation 99 H 96 100 H ABG Base Excess 10 H 11 H 13 H VBG pH VBG pCO2 VBG pO2 VBG Base Excess 03/06/25 03/07/25 03/07/25 17:10 05:00 14:03 ABG pH 7.46 H ABG pCO2 53 H ABG pO2 65 L D ABG HCO3 38 H ABG O2 Saturation 93 ABG Base Excess 12 H VBG pH 7.50 7.52 VBG pCO2 50 47 VBG pO2 70 H 61 H VBG Base Excess 13 H 14 H 03/09/25 03/09/25 08:17 10:25 ABG pH 7.25 L D 7.29 L ABG pCO2 93 H* D 85 H* ABG pO2 81 L 57 L* D ABG HCO3 41 H 40 H ABG O2 Saturation 95 89 L ABG Base Excess 10 H 10 H VBG pH VBG pCO2 VBG pO2 VBG Base Excess Quality Measures Quality Measures sepsis Current suspected stage: ruled out Possible source: pulmonary Blood cultures ordered: completed in ED Antibiotic ordered: No Advance care planning discussed with:: patient Assessment & Plan Assessment Current Active Medications: Generic Name Dose Route Start Last Admin Trade Name Freq PRN Reason Stop Dose Admin Acetaminophen 650 mg 02/27/25 09:24 Acetaminophen 325 Mg Tablet PO 03/29/25 09:23 Q4HR PRN PAIN SCALE 1-3 (mild Al Hydrox/Mg Hydrox/Simethicone 30 ml 02/27/25 09:24 Mg Hyd/Al Hyd/Virgilio (Maalox Reg) Susp 30 Ml Udc PO 03/29/25 09:23 Q4HR PRN Heartburn or Upset Stomach Amiodarone HCl 200 mg 03/01/25 09:00 03/09/25 09:05 Amiodarone Hcl 200 Mg Tablet PO 03/31/25 08:59 Not Given QDAY KOURTNEY Bumetanide 1 mg 03/07/25 09:00 03/08/25 20:16 Bumetanide Inj 0.25 Mg/Ml Vial 4 Ml IVP 04/06/25 08:59 1 mg BID KOURTNEY Administration Dextrose 25 ml 03/03/25 08:20 Dextrose 50%-Water Inj 50 Ml Syringe IV 04/02/25 08:19 Q15MIN PRN BG 50-70 responsive npo pt Dextrose 50 ml 03/03/25 08:20 Dextrose 50%-Water Inj 50 Ml Syringe IV 04/02/25 08:19 Q15MIN PRN BG <50 OR BG <70 & pt unresponsive Glucagon 1 mg 03/03/25 08:20 Glucagon Inj 1 Mg Vial IM Q15MIN PRN BG <70, and no IV access Insulin Human Lispro 0 unit 03/06/25 06:00 03/09/25 12:44 Insulin Lispro (Admelog) 1 Unit/0.01 Ml Unit SC 04/05/25 05:59 Not Given Q6H [facility] Protocol Magnesium Hydroxide 30 ml 02/27/25 09:24 Milk Of Magnesia Susp 30 Ml Udc PO 03/29/25 09:23 QDAY PRN CONSTIPATION Metoprolol Succinate 100 mg 03/03/25 21:00 03/09/25 09:05 Metoprolol Succinate Xl 25 Mg Tabcr PO 04/02/25 20:59 Not Given BID [facility] Ondansetron HCl 4 mg 03/05/25 20:46 03/09/25 03:49 Ondansetron Inj 2 Mg/Ml Inj 2 Ml IV 04/04/25 20:45 4 mg Q6HR PRN Administration NAUSEA OR VOMITING Protocol Pantoprazole Sodium 40 mg 02/27/25 11:15 03/09/25 09:06 Pantoprazole Inj 40 Mg Vial IV 03/29/25 11:14 40 mg QDAY KOURTNEY Administration Rivaroxaban 20 mg 03/04/25 17:30 03/08/25 18:30 Rivaroxaban 10 Mg Tablet PO 04/03/25 17:29 20 mg WSUPPER KOURTNEY Administration Plan A 64-year-old male with significant past medical history of hypertension, diabetes mellitus, A-fib is admitted to the ICU on 02/27/2025 in view of altered mental status and shortness of breath for acute hypoxic respiratory failure and was intubated in view of suspected obesity hypoventilation syndrome/obstructive sleep apnea/pneumonia and acute kidney injury. extubated on 03/03/2025 and downgraded to the floors for further management. But on 03/05/2025, as patient is still having CO2 retention on BiPAP, patient was upgraded to ICU for intubation and further management #Acute hypoxic hypercapnic respiratory failure, resolved # Likely due to BASIA/OHS Patient was intubated on 02/27/2025, extubated 03/03/2025, reintubated on 03/05 and extubated on 03/07 Cocci came back negative Plan - Oxygen as needed - Will continue bedtime CPAP # Metabolic alkalosis Likely compensation for the respiratory acidosis and contraction in the setting of diuretic usage - Bicarb as of 03/09/2025 is 39.4 Plan - Will continue Bumex 1mg IV daily - Will continue to monitor renal function panel # Hypernatremia - As of 03/09/2025, sodium is 149 Plan - Water restriction was increased to 2000 cc - Encouraged to take oral fluids - Will continue to monitor renal panel and if does not improve, will start on D5W # Heart failure, predominantly right heart failure # In the setting of suspected OHS/BASIA in the setting of morbid obesity - Patient did not have any previous history of heart disease as except for A-fib - Presented to the hospital with chief complaints of shortness of breath and fainting - On physical examination, patient is morbidly obese and anasarca noted, which could be due to right heart failure from BASIA/OHS - Chest x-ray showed bilateral moderate vascular congestion - Echo could not visualize all chambers and could not provide ejection fraction Plan - Started on bumex 1mg IV twice daily - Will continue to monitor renal functions and electrolytes - Fluid and salt restriction - Consulted Dr. John, will appreciate his recommendations #KENIA vs Acute on CKD, improving Likely cardiorenal syndrome in the setting of severe right heart failure - Baseline creatinine is 0.9 in 2021 - Creatinine at the time of admission is 2.1, continued to uptrend and peaked at 3.1 on 03/01/2025, later started to downtrend and as of 03/09/2025, creatinine is 1.2 Plan - Will continue IV Bumex 1 Mg twice daily for now - Will continue to monitor renal functions - Avoid nephrotoxic medications and renally dose medications #Hx of A-fib with CVR - Patient does have a history of A-fib - On metoprolol succinate 100 mg - Not on any anticoagulation - [id number] score is 4, history of diabetes mellitus, hypertension, CHF, male sex Plan - Continue PO amiodarone 200 mg qday - Continue metoprolol succinate 100 Mg p.o. twice daily - Will continue Xarelto - Cardiology Dr. John is consulted and will follow recommendations # Diabetes mellitus - HbA1c in 2021 is 6.1 - Repeat HbA1c is ordered Plan - Patient is started on insulin sliding scale and glargine 6 units subcutaneous at bedtime - Will adjust insulin based on blood sugars - Hypoglycemic protocol is in place #Transaminitis, improving #Hyperbilirubinemia, resolved Likely elevated in the setting of right heart failure Will continue to monitor on daily CMP # Morbid obesity Patient has a BMI of 79.5 Patient had history of gastric bypass 10 years ago, lost significant amount of weight at the time and regained it later Recommended to follow-up in outpatient basis to work on weight loss Hospital Maintenance: Diet: low sodium, carb consistent diet DVT ppx: Xarelto GI ppx: protonix IV lines: PIV Code status: Full code Patient plan of care was discussed with the attending physician, Dr. Mendoza and senior resident Dr. Francisca Ahumada, PGY1 Attending Provider Attestation/Addendum
--- NOTE | 2025-03-09 17:30 | PC.NURSE ---
Per Dr. Sanchez, pt ok to be off bipap for dinner and will put back on at 1999.
[2025-03-09 17:49] LABS: Base Excess 12 (-3-3); HCO3 43 mEq/L (20-26); Inspired Oxygen, FIO2 21 %; O2 Saturation 97 % (91-98); PCO2 88 mmHg (32.0-48.0); PO2 85 mmHg (83-108); pH, Arterial 7.29 (7.35-7.45)
[2025-03-09] MEDS: RIVAROXABAN 10 MG TABLET 20 MG PO (18:05)
[2025-03-09 18:08] LABS: Allen Test Performed/OK; Puncture Site Right Brachial
--- NOTE | 2025-03-09 19:39 | ESPR_ITS ---
RE: KOFI CRAWFORD : 1960 DATE OF SERVICE: 03/09/2025 SUBJECTIVE: Kofi Crawford is a 64-year-old man with a past medical history of obesity, pickwickian syndrome, hypoxia, hypercapnia, respiratory failure, moderate obesity, right heart failure predominantly due to pulmonary hypertension. He was extubated successfully, but still having CO2 retention. He is somewhat obtunded and still lying flat. He is not sitting up much. He is not complaining of any chest pain. No arrhythmias are seen for now. His heart rate remains controlled, but somewhat on the faster side. He remains in atrial fibrillation with a controlled heart rate by metoprolol succinate. He is currently on BiPAP at night, but during the daytime on face mask appears to be saturating well with some CO2 . He does not have any cardiac symptoms or complaints. OBJECTIVE: General: Unremarkable HEENT: Head is atraumatic. Neck: Supple. Lungs: Decreased breath sounds. Heart: S1, S2 irregular. Abdomen: Morbidly obese and soft. Extremities: Chronic edema of both feet. /rectal: Not performed. Neurologic: Normal. LABORATORY DATA: White count has gone up to 19.5. His chemistry panel shows evidence of slightly elevated BUN of 46. Electrolytes are unremarkable. Potassium is normal. DIAGNOSTIC DATA: Most recent chest x-ray on 03/07/2021 showed evidence of pulmonary congestion and possible bibasilar pneumonia as well. The patient receiving Bi-PAP at night and oxygen supplementation and currently still receiving Bumex 1 mg twice daily IV along with metoprolol 100 mg twice a day for atrial fibrillation and rate control. Pantoprazole and we will start him on rivaroxaban 20 mg daily for anticoagulation because of atrial fibrillation with high CHADS-VASC score. IMPRESSION: Hypoxia and hypercapnic respiratory failure secondary to a combination of pneumonia, heart failure as well as severe sleep apnea symptoms with CO2 retention. RECOMMENDATIONS: 1. Continue diuretic therapy for now. 2. Oxygen supplements and BiPAP. 3. The patient may require CPAP when he is discharged home for sure. 4. Weight reduction. 5. Physical therapy if he is able to. DT: 18:56:34 TT: 19:38:00 Ref: [id number] - TID: [id number]
--- NOTE | 2025-03-09 19:51 | PC.NURSE ---
charge nurse notified of bed not inflating properly
[2025-03-09] MEDS: METOPROLOL TARTRATE INJ 1 MG/ML AMP 5 ML 5 MG IVP (21:00)
--- NOTE | 2025-03-09 23:20 | PC.NURSE ---
MD Muller notified that patient's HR still sustaining in 120s-130s. she said they will come evaluate the patient
[2025-03-10] VITALS (92 sets, daily range): BP systolic 84–127; BP diastolic 60–87; PULSE 89–143; RESP 0–66; TEMP 36.2–38.6; O2SAT 90–100
[2025-03-10 00:50] LABS: Base Excess 11 (-3-3); HCO3 40 mEq/L (20-26); Inspired Oxygen, FIO2 45 %; O2 Saturation 94 % (91-98); PCO2 78 mmHg (32.0-48.0); PO2 69 mmHg (83-108); pH, Arterial 7.32 (7.35-7.45)
[2025-03-10 00:59] LABS: Allen Test Performed/OK; Puncture Site Right Radial
--- NOTE | 2025-03-10 04:16 | PC.NURSE ---
MD Muller made aware that pt's HR is sustaining in 130s-140s. she came to bedside to assess patient. She said she will order x1 metoprolol IVP
[2025-03-10] MEDS: METOPROLOL TARTRATE INJ 1 MG/ML AMP 5 ML 2 MG IVP (04:31)
--- NOTE | 2025-03-10 05:29 | PC.NURSE ---
[employer] INFORMED ME THAT PT IS HAVING 3-4 PVCs IN A ROW. I CALLED MD JIMENES AND MD JIMENES CAME TO THE BEDSIDE
[2025-03-10] MEDS: INSULIN LISPRO (AdmeLOG) 1 UNIT/0.01 ML UNIT SC (05:42)
[2025-03-10] MEDS: METOPROLOL TARTRATE INJ 1 MG/ML AMP 5 ML 5 MG IVP (05:46)
[2025-03-10 06:51] LABS: Alanine Aminotransferase 25 U/L (10-49); Albumin, Serum 3.4 gm/dL (3.4-4.8); Albumin/Globulin Ratio 1.2 (1.2-2.2); Alkaline Phosphatase 128 U/L (46-116); Anion Gap 7 (7-16); Aspartate Amino Transferase 28 U/L (0-34); BUN/Creatinine Ratio 31 Ratio (12-20); Bilirubin,Total 0.5 mg/dL (0.3-1.2); Blood Urea Nitrogen 49 mg/dL (9-23); Calcium 9.1 mg/dL (8.3-10.6); Calcium (Corrected) 9.6 mg/dL (8.5-10.1); Carbon Dioxide 37.6 mMol/L (20.0-31.0); Chloride 101 mMol/L (98-107); Creatinine (Component) 1.6 mg/dL (0.6-1.3); Globulin 2.8 gm/dL (2.3-3.5); Glucose 243 mg/dL (74-106); Osmolality,Calculated 311 (275-295); Potassium 3.9 mMol/L (3.4-5.1); Sodium 146 mMol/L (136-145); Total Protein 6.2 gm/dL (5.7-8.2); eGFR 48 See Note
[2025-03-10 06:57] LABS: Basophils # (Auto) 0.1 Thou/mm3 (0.0-0.2); Basophils % (Auto) 0 % (0-2.5); Eosinophils # (Auto) 0.1 Thou/mm3 (0.0-0.5); Eosinophils % (Auto) 1 % (0-10); Hematocrit 45.6 % (41.0-53.0); Hemoglobin 13.7 g/dL (13.5-16.0); Immature Granulocytes % (Auto) 1 % (0-0); Immature Granulocytes Auto 0.18 Thou/mm3 (0.00-0.00); Lymphocytes # (Auto) 0.6 Thou/mm3 (1.0-4.8); Lymphocytes % (Auto) 3 % (10-50); Mean Corpuscular Hemoglobin 28.8 pg (25.0-35.0); Mean Corpuscular Volume 96 fL (80-100); Monocytes # (Auto) 1.9 Thou/mm3 (0.0-0.8); Monocytes % (Auto) 9 % (0-12); Neutrophils # (Auto) 17.5 Thou/mm3 (1.8-7.7); Neutrophils % (Auto) 86 % (37-80); Nucleated Red Blood Cell % 0 /100 WBC (0); Platelet Count 478 Thou/mm3 (140-440); RDW Standard Deviation 49.5 fL (35.1-43.9); Red Blood Count 4.75 Miln/mm3 (4.50-5.90); White Blood Count 20.5 Thou/mm3 (3.8-10.6)
[2025-03-10 08:27] LABS: Base Excess 12 (-3-3); HCO3 43 mEq/L (20-26); Inspired Oxygen, FIO2 35 %; O2 Saturation 80 % (91-98); PCO2 90 mmHg (32.0-48.0); pH, Arterial 7.28 (7.35-7.45)
[2025-03-10 08:32] LABS: Allen Test Not Performed; PO2 47 mmHg (83-108); Puncture Site Left Brachial
[2025-03-10] MEDS: PANTOPRAZOLE INJ 40 MG VIAL IV (09:48)
--- NOTE | 2025-03-10 10:01 | PC.NURSE ---
Dr. Sanchez notified, pt increased fatigue and unable to keep eyes open or stay awake to swall oral medication. RT at bedsdie to adjust bipap settings and fio2 increased to 45. Notified charge nurse of bed being broken. Engineering came by bedside and attached airflow port back in place.
[2025-03-10 11:31] LABS: Base Excess 11 (-3-3); HCO3 41 mEq/L (20-26); Inspired Oxygen, FIO2 100 %; O2 Saturation 93 % (91-98); PCO2 81 mmHg (32.0-48.0); PO2 63 mmHg (83-108); pH, Arterial 7.31 (7.35-7.45)
[2025-03-10 11:33] LABS: Allen Test Performed/OK; Puncture Site Right Radial
[2025-03-10] MEDS: AMIODARONE 150 MG IVPB 150 MG/100 ML BAG 600 MG IV (11:45)
[2025-03-10] MEDS: AMIODARONE 360 MG IVPB 360 MG/200 ML BAG 33.333 MG IV (12:04)
--- NOTE | 2025-03-10 14:48 | ESCONSULT_ITS ---
<Statement entered by Apolonia Ruth MD - 03/11/25 08:09> TOTAL CC TIME: 45 MIN I saw and evaluated the patient. I reviewed the resident?s note and agree with findings and plan as documented in the resident?s note. Upon my evaluation, this patient had a high probability of imminent or life- threatening deterioration due to acute on chronic hypoxic/hypercapnic respiratory failure which required my direct attention, intervention, and personal management. This time is exclusive of time spent on procedures, which are documented separately if performed. Primary team requested intubation due to persistent encephalopathy despite improving gas exchange on noninvasive positive pressure ventilation. Prior to intubation inspiratory pressure support was increased to 24 cm H2O, neck was placed in a more extended position with a towel under the chin and head of bed reduced to 20 degrees from 40 degrees. This resulted in an improved airleak as well as an improved pH and reduced pCO2. Nonetheless the patient was too encephalopathic to remain on noninvasive positive pressure ventilation per the primary team and therefore he was intubated. Postintubation we will work on reducing sedation, if he does not wake up appropriately with a normalized pH additional workup for persistent encephalopathy will ensue HPI Data of Consult Requesting Physician: Pavel Mendoza MD Admitting Provider: Angelique Maxwell MD Attending Provider: Pavel Mendoza MD Primary Care Provider: Physician No Primary/Family Consult Narrative History of present illness: 64-year-old male with past medical history of DM2, hypertension, and A-fib was admitted to the ICU on 02/27/2025 after coming to the ED with complaints of altered mental status and shortness of breath. Patient was intubated in the ED therefore most of the history was taken from chart review and from the parents who are at bedside. Patient's parents stated that yesterday morning patient could not get up from his chair and then later that evening/night he started getting confused and was not making sense when he was seen. This morning EMS found the patient on the floor and he was saturating in the 70s even on high flow nasal cannula. Given his hypoxia patient was intubated in the ED. As per parents were at bedside they stated that prior to this patient was able to walk around, but that since yesterday morning he was unable to walk. On assessment patient was intubated, but was still able to answer yes or no questions. He was also able to follow commands. Patient spiked a fever while in the ED and he became hypotensive unresponsive to IV fluids therefore he was placed on vasopressors. 02/28/2025: Patient was seen examined at bedside this morning. Overnight patient did spike a fever of 100.4 and he had no measurable urine output. Patient placed on amio drip overnigth. He was also given Bumex 1 mg x 1 overnight to see if he had better urine output, but none was measured. Today's patient's chest x-ray this looks like it is improving and he did have wet pants and some urine in the pure wick catheter. Will start patient on Bumex drip at 1 mg and will monitor patient's daily weights. Patient was on very low-dose of Levophed therefore we will start patient on midodrine 10 mg every 6 hours and wean off Levophed entirely. Patient is nasogastric tube was not visualized had x-ray, but on auscultation air was audible in the stomach when hand was placed through the nasogastric tube. Will discontinue patient's vancomycin and Zosyn if his MRSA is negative and will transition to azithromycin and Rocephin. 03/01/2025: Patient seen and examined at bedside this morning. Overnight patient went into A-fib with RVR and he finishes bolus of amiodarone. Patient had a documented urine output of 150, but that she states 1 were very wet. His Bumex drip finished overnight and they were not able to start more Bumex drip as there was not available in the pharmacy overnight. Patient's weight did go down from 249 to 247 kg. Blood cultures have been negative in 48 hours and MRSA nares negative. Will discontinue vancomycin and Zosyn and will start azithromycin and Rocephin. Patient's ventilator requirements have been unchanged, but has been saturating in the 94% therefore we will try and wean down on oxygen requirements. His blood pressure has been stable off Levophed and only on midodrine. His kidney function has been worsening, but expect improvement with more diuresis. Started Amiodarone 200mg qday. 03/02/2025: No overnight events, todays weight 246, we will continue bumex drip. NIF today as -12, we will re-evaluate tomorrow to attempt extubation. Midodrine decreased to 5 q6hr 03/03/2025: Patient was seen examined at bedside this morning. No acute overnight events. Patient was taken off the Precedex yesterday night. Today's weight is 242 kg. Succesfull extubation today, will transition to bipap. 03/06/2025: Was notified by floors team that patient is tachypneic in the 40s with increased work of breathing, confusion, and agitation. He was AAOx 1 (name) and saying leave me alone. He continues to pull at his BIPAP and had to be restrained, with a sitter at bedside. His BIPAP settings were uptitrated from 10/5 to 16/6 without significant improvement of PCO2. Repeat ABG showed pH 7.37 with CO2 at 74. Floor team attempted to notify family with no answer. He remains confused and agitated. Patient to be intubated due to worsening respiratory effort. 03/06/2025: Patient was seen and examined at bedside this morning. He was sedated in the morning, but was weaned off. Patient was able to follow commands he understood and was able to at least answer yes and no questions. Patient was placed on spontaneous breathing trial, but his RSBI was in the 130s therefore patient was high risk to fail extubation at this time. Placed patient back on prior ventilator settings, will follow any sedation at this time as she is calm. Sedation will be placed if patient becomes agitated. Patient is diuresing well and his current weight today is 227 kilograms. Gave metolazone 10 mg x 1 today for additional diuresis and started tube feeds today. Will reattempt weaning parameters tomorrow for possible extubation. 03/07/2025: Patient seen and examined at bedside this morning. No overnight events. Patient's weight today was 226.4 kg. Patient's blood gas that showed a pH of 7.46, PCO2 of 53, and PO2 of 65 this most likely his baseline PCO2. Patient initially did not get his Bumex as it was discontinued the night prior, but today we will continue Bumex 1 mg twice daily. Chest x-ray that showed some more vascular congestion, but still on and physical exam was clear bilaterally. Patient passed spontaneous breathing trial and was extubated successfully today. At this time we will downgrade back to the medical floors. 03/10/2025: Patient was upgraded today at approximately 15:30 for intubation due to declining mentation on the BiPAP, despite remaining on BiPAP for majority of the last 24 hours. Patient was no longer able to answer questions and not following commands. Patient's decision-maker was contacted who consented for intubation. ABG in the morning had shown pH 7.31, pCO2 81, pO2 63, HCO3 41. Will start fentanyl and propofol. Will continue amiodarone PO dose through OG tube. If HR not rate controlled resume metoprolol XL as well. Will continue to hold the Bumex due to worsening KENIA and soft BPs. cc:: cc: Pavel Mendoza MD Exam Vital Signs Temp Pulse Resp BP Pulse Ox O2 Del Method O2 Flow Rate 101.4 F H 122 H 20 125/87 H 100 BiPAP 5 03/10/25 12:19 03/10/25 12:19 03/10/25 11:46 03/10/25 12:19 03/10/25 11:46 03/10/25 11:46 03/10/25 11:46 FiO2 45 03/10/25 11:46 Narrative Exam General: morbidly obese, on BiPAP, unable to follow commands Eyes: PERRL, EOMI. Anicteric, vision grossly intact. Ears: No ear pain, no ear discharge, Hearing grossly intact. Nose: No nasal discharge. Mouth/Throat: Moist mucous membranes, no redness, no lesions. Neck: Short neck non-tender, no cervical lymphadenopathy. Lungs: Clear BANG in upper lobes and decreased in Lower lobes. Cardio: Distant heart sounds likely due to body habitus, normal S1/S2, regular rhythm, no murmurs, no JVD Abdomen: Swollen lower abdomen around 1+, no palpable masses, peristalsis present, no guarding or rebound. Extremities: Symmetrical, no significant deformities, 1+ peripheral edema , non- tender, peripheral pulses presents. Skin: No rashes, no lesions, warm to touch, purplish discoloration on the right neck, nonpainful. Neuro: Able to follow commands, pupils reactive to light, able to move all extremities today. Results Labs 03/11/25 04:40 03/10/25 19:34 Labs: Short CBC 03/10/25 Range/Units 05:49 WBC 20.5 H (3.8-10.6) Thou/mm3 Hgb 13.7 (13.5-16.0) g/dL Hct 45.6 (41.0-53.0) % Plt Count 478 H D (140-440) Thou/mm3 BMP 03/10/25 05:49 Sodium 146 H Potassium 3.9 Chloride 101 Carbon Dioxide 37.6 H BUN 49 H Creatinine 1.6 H Glucose 243 H Calcium 9.1 Liver Function 03/10/25 Range/Units 05:49 Total Bilirubin 0.5 (0.3-1.2) mg/dL AST 28 (0-34) U/L ALT 25 (10-49) U/L Alkaline Phosphatase 128 H (46-116) U/L Albumin 3.4 (3.4-4.8) gm/dL ABG Interpretation ABG results: 02/27/25 02/28/25 03/01/25 06:55 04:57 04:39 ABG pH 7.27 L 7.37 D 7.41 ABG pCO2 57 H 48 44 ABG pO2 101 78 L D 69 L ABG HCO3 26 28 H 28 H ABG O2 Saturation 98 95 93 ABG Base Excess -2 2 3 VBG pH VBG pCO2 VBG pO2 VBG Base Excess 03/01/25 03/01/25 03/02/25 13:15 14:52 04:25 ABG pH Cancelled 7.41 7.45 ABG pCO2 Cancelled 45 42 ABG pO2 Cancelled 53 L* 66 L ABG HCO3 Cancelled 28 H 29 H ABG O2 Saturation Cancelled 85 L 92 ABG Base Excess Cancelled 3 5 H VBG pH VBG pCO2 VBG pO2 VBG Base Excess 03/03/25 03/05/25 03/05/25 04:40 16:30 16:55 ABG pH 7.45 Cancelled 7.34 L D ABG pCO2 43 Cancelled 72 H* D ABG pO2 72 L Cancelled 83 ABG HCO3 30 H Cancelled 38 H ABG O2 Saturation 94 Cancelled 95 ABG Base Excess 5 H Cancelled 9 H VBG pH VBG pCO2 VBG pO2 VBG Base Excess 03/05/25 03/06/25 03/06/25 23:36 01:48 05:22 ABG pH 7.37 7.34 L 7.52 H D ABG pCO2 67 H 74 H* 47 D ABG pO2 150 H D 88 D 160 H D ABG HCO3 38 H 40 H 38 H ABG O2 Saturation 99 H 96 100 H ABG Base Excess 10 H 11 H 13 H VBG pH VBG pCO2 VBG pO2 VBG Base Excess 03/06/25 03/07/25 03/07/25 17:10 05:00 14:03 ABG pH 7.46 H ABG pCO2 53 H ABG pO2 65 L D ABG HCO3 38 H ABG O2 Saturation 93 ABG Base Excess 12 H VBG pH 7.50 7.52 VBG pCO2 50 47 VBG pO2 70 H 61 H VBG Base Excess 13 H 14 H 03/09/25 03/09/25 03/09/25 08:17 10:25 17:29 ABG pH 7.25 L D 7.29 L 7.29 L ABG pCO2 93 H* D 85 H* 88 H* ABG pO2 81 L 57 L* D 85 D ABG HCO3 41 H 40 H 43 H ABG O2 Saturation 95 89 L 97 ABG Base Excess 10 H 10 H 12 H VBG pH VBG pCO2 VBG pO2 VBG Base Excess 03/09/25 03/10/25 03/10/25 23:24 07:17 11:25 ABG pH 7.32 L 7.28 L 7.31 L ABG pCO2 78 H* D 90 H* D 81 H* ABG pO2 69 L 47 L* D 63 L ABG HCO3 40 H 43 H 41 H ABG O2 Saturation 94 80 L 93 ABG Base Excess 11 H 12 H 11 H VBG pH VBG pCO2 VBG pO2 VBG Base Excess Quality Measures Quality Measures sepsis Current suspected stage: ruled out Possible source: pulmonary Blood cultures ordered: completed in ED Antibiotic ordered: No Advance care planning discussed with:: patient Medications Home Medications and Allergies Home Medications ?Medication ?Instructions ?Recorded ?Confirmed ?Type amlodipine 10 mg tablet 10 mg PO 1XD 02/27/25 History gabapentin 600 mg tablet 600 mg PO 3XD 02/27/2502/27 History glipizide 10 mg tablet 10 mg PO 1XD 02/27/25 History losartan 25 mg tablet 25 mg PO 1XD 02/27/25 History metformin 1,000 mg tablet 1,000 mg PO 2XD 02/27/25 History metoprolol succinate 100 mg 100 mg PO 2XD 02/27/25 History tablet,extended release 24 hr tramadol 50 mg tablet 50 mg PO 3XD 02/27/25 History Allergies Allergy/AdvReac Type Severity Reaction Status Date / Time No Known Allergies Allergy Verified 02/27/25 06:45 Visit Medications Acetaminophen (Acetaminophen 325 Mg Tablet) 650 mg PO Q4HR PRN PRN Reason: PAIN SCALE 1-3 (mild Stop: 03/29/25 09:23 Al Hydrox/Mg Hydrox/Simethicone (Mg Hyd/Al Hyd/Virgilio (Maalox Reg) Susp 30 Ml Udc) 30 ml PO Q4HR PRN PRN Reason: Heartburn or Upset Stomach Stop: 03/29/25 09:23 Amiodarone HCl (Amiodarone Hcl 200 Mg Tablet) 200 mg PO QDAY [facility] Stop: 03/31/25 08:59 Last Admin: 03/10/25 10:00 Dose: Not Given Bumetanide (Bumetanide Inj 0.25 Mg/Ml Vial 4 Ml) 1 mg IVP BID [facility] Stop: 04/06/25 08:59 Last Admin: 03/08/25 20:16 Dose: 1 mg Dextrose (Dextrose 50%-Water Inj 50 Ml Syringe) 25 ml IV Q15MIN PRN PRN Reason: BG 50-70 responsive npo pt Stop: 04/02/25 08:19 Dextrose (Dextrose 50%-Water Inj 50 Ml Syringe) 50 ml IV Q15MIN PRN PRN Reason: BG <50 OR BG <70 & pt unresponsive Stop: 04/02/25 08:19 Glucagon (Glucagon Inj 1 Mg Vial) 1 mg IM Q15MIN PRN PRN Reason: BG <70, and no IV access Amiodarone HCl/Dextrose (Nexterone Ivpb) 360 mg in 200 mls @ 33.333 mls/hr IV .Q6H ONE Stop: 03/10/25 17:29 Last Admin: 03/10/25 12:04 Dose: 33.333 mls/hr Amiodarone HCl/Dextrose (Nexterone Ivpb) 360 mg in 200 mls @ 16.667 mls/hr IV .Q12H [facility] Stop: 03/11/25 17:29 Insulin Human Lispro (Insulin Lispro (Admelog) 1 Unit/0.01 Ml Unit) 0 unit SC Q6H [facility]; Protocol Stop: 04/05/25 05:59 Last Admin: 03/10/25 12:14 Dose: Not Given Magnesium Hydroxide (Milk Of Magnesia Susp 30 Ml Udc) 30 ml PO QDAY PRN PRN Reason: CONSTIPATION Stop: 03/29/25 09:23 Metoprolol Succinate (Metoprolol Succinate Xl 25 Mg Tabcr) 100 mg PO BID [facility] Stop: 04/02/25 20:59 Last Admin: 03/09/25 20:53 Dose: Not Given Metoprolol Tartrate (Metoprolol Tartrate Inj 1 Mg/Ml Amp 5 Ml) 5 mg IVP Q8HR [facility] Stop: 04/08/25 21:59 Last Admin: 03/10/25 14:30 Dose: Not Given Ondansetron HCl (Ondansetron Inj 2 Mg/Ml Inj 2 Ml) 4 mg IV Q6HR PRN; Protocol PRN Reason: NAUSEA OR VOMITING Stop: 04/04/25 20:45 Last Admin: 03/09/25 03:49 Dose: 4 mg Pantoprazole Sodium (Pantoprazole Inj 40 Mg Vial) 40 mg IV QDAY [facility] Stop: 03/29/25 11:14 Last Admin: 03/10/25 09:48 Dose: 40 mg Rivaroxaban (Rivaroxaban 10 Mg Tablet) 20 mg PO WSUPPER [facility] Stop: 04/03/25 17:29 Last Admin: 03/09/25 18:05 Dose: 20 mg Discontinued Medications Acetaminophen (Acetaminophen Supp 650 Mg Supp) 650 mg RI Q4HR PRN PRN Reason: PAIN SCALE 1-3 (mild Stop: 03/29/25 09:23 Albuterol/Ipratropium (Albuterol/Ipratropium (Duoneb) Rt Gloria 3 Ml Nebu) 3 ml INH X1 ONE Stop: 03/05/25 23:11 Last Admin: 03/05/25 23:50 Dose: 3 ml Bumetanide (Bumetanide Inj 0.25 Mg/Ml Vial 4 Ml) 1 mg IV X1 ONE Stop: 02/27/25 21:42 Last Admin: 02/27/25 22:11 Dose: 1 mg Bumetanide (Bumetanide Inj 0.25 Mg/Ml Vial 4 Ml) 2 mg IVP BID [facility] Stop: 04/03/25 08:59 Last Admin: 03/05/25 09:51 Dose: 2 mg Bumetanide (Bumetanide Inj 0.25 Mg/Ml Vial 4 Ml) 1 mg IVP BID [facility] Stop: 04/04/25 20:59 Diphenhydramine HCl (Diphenhydramine Elix 25 Mg/10 Ml Udc) 12.5 mg PO X1 ONE Stop: 03/05/25 00:34 Last Admin: 03/05/25 01:30 Dose: Not Given Enoxaparin Sodium (Enoxaparin Sod Inj 40 Mg/0.4 Ml Syringe) 40 mg SC QDAY [facility] Stop: 03/14/25 08:59 Enoxaparin Sodium (Enoxaparin Sod Inj 40 Mg/0.4 Ml Syringe) 40 mg SC Q12HR [facility] Stop: 03/13/25 20:59 Last Admin: 03/04/25 08:14 Dose: 40 mg Enoxaparin Sodium (Enoxaparin Sod Inj 60 Mg/0.6 Ml Syringe) 60 mg SC Q12HR [facility] Stop: 03/18/25 20:59 Etomidate (Etomidate Inj 2 Mg/Ml Vial 10 Ml) 20 mg IVP X1 ONE Stop: 02/27/25 06:13 Last Admin: 02/27/25 06:14 Dose: 20 mg Etomidate (Etomidate Inj 2 Mg/Ml Vial 10 Ml) 20 mg IVP X1 ONE Stop: 02/27/25 07:39 Last Admin: 02/27/25 07:44 Dose: 20 mg Etomidate (Etomidate Inj 2 Mg/Ml Vial 10 Ml) 70 mg 0.3 mg/kg (70 mg) IV X1 ONE Stop: 03/06/25 02:54 Last Admin: 03/06/25 06:45 Dose: Not Given Etomidate (Etomidate Inj 2 Mg/Ml Vial 10 Ml) 20 mg IV X1 ONE Stop: 03/06/25 02:54 Last Admin: 03/06/25 03:18 Dose: 20 mg Famotidine (Famotidine Inj 10 Mg/Ml Vial 2 Ml) 20 mg IVP QDAY [facility] Stop: 03/30/25 08:59 Furosemide (Furosemide Inj 10 Mg/Ml 4ml Vial) 60 mg IVP X1 ONE Stop: 02/27/25 16:13 Last Admin: 02/27/25 17:03 Dose: 60 mg Sodium Chloride (Ns) 1,000 mls @ 999 mls/hr IV .Q1H1M ONE Stop: 02/27/25 07:19 Last Infusion: 02/27/25 09:25 Dose: Infused Sodium Chloride (Ns) 1,000 mls @ 999 mls/hr IV .Q1H1M ONE Stop: 02/27/25 07:21 Last Infusion: 02/27/25 07:23 Dose: Infused Norepinephrine/Dextrose (Levophed In D5w 8mg/250ml) 8 mg in 250 mls @ 21.577 mls/hr IV .[id number] PRN; Protocol PRN Reason: PER PROTOCOL Stop: 03/29/25 06:57 Last Titration: 02/28/25 13:49 Dose: 0 mcg/kg/min, 0 mls/hr Sodium Chloride (Ns) 1,000 mls @ 999 mls/hr IV .Q1H1M ONE Stop: 02/27/25 08:01 Last Infusion: 02/27/25 09:25 Dose: Infused Sodium Chloride (Ns) 1,000 mls @ 999 mls/hr IV .Q1H1M ONE Stop: 02/27/25 08:18 Last Infusion: 02/27/25 09:25 Dose: Infused Ceftriaxone Sodium/Dextrose (Rocephin/D5w 1gm Iv Premix) 1 gm in 50 mls @ 100 mls/hr IV X1 ONE Stop: 02/27/25 07:47 Last Infusion: 02/27/25 09:25 Dose: Infused Acetaminophen (Ofirmev Inj) 1,000 mg in 100 mls @ 250 mls/hr IV X1 ONE Stop: 02/27/25 10:42 Last Infusion: 02/27/25 11:12 Dose: Infused Piperacillin Sod/Tazobactam (Sod 4.5 gm/ Sodium Chloride) 100 mls @ 200 mls/hr IV Q6HR [facility] Stop: 03/06/25 14:22 Last Admin: 02/28/25 05:34 Dose: 200 mls/hr Vancomycin HCl 2,000 mg/ (Sodium Chloride) 500 mls @ 150 mls/hr IV X1 ONE Stop: 02/27/25 18:19 Last Admin: 02/27/25 15:22 Dose: 150 mls/hr Amiodarone HCl/Dextrose (Nexterone Ivpb) 150 mg in 100 mls @ 600 mls/hr IV .Q10M ONE Stop: 02/27/25 19:36 Last Infusion: 02/27/25 19:47 Dose: Infused Amiodarone HCl/Dextrose (Nexterone Ivpb) 360 mg in 200 mls @ 33.333 mls/hr IV .Q6H ONE Stop: 02/28/25 01:36 Last Admin: 02/27/25 19:46 Dose: 33.333 mls/hr Amiodarone HCl/Dextrose (Nexterone Ivpb) 360 mg in 200 mls @ 16.667 mls/hr IV .Q12H [facility] Stop: 03/01/25 01:36 Last Admin: 02/28/25 13:56 Dose: 16.667 mls/hr Vancomycin HCl (Vancomycin/Water 1250 Mg Ivpb) 250 mls @ 120 mls/hr IV X1 ONE Stop: 02/28/25 12:04 Last Admin: 02/28/25 10:02 Dose: 120 mls/hr Piperacillin Sod/Tazobactam (Sod 4.5 gm/ Sodium Chloride) 100 mls @ 25 mls/hr IV Q8HR [facility]; Protocol Stop: 03/07/25 13:59 Last Admin: 03/01/25 05:26 Dose: 25 mls/hr Bumetanide 20 mg/ IV (Miscellaneous Supplies) 80 mls @ 4 mls/hr IV .Q20H [facility] Stop: 03/01/25 07:03 Last Admin: 02/28/25 12:11 Dose: 1 mg/hr, 4 mls/hr Vancomycin HCl (Vancomycin/Water 1250 Mg Ivpb) 250 mls @ 120 mls/hr IV X1 ONE Stop: 03/01/25 12:04 Last Admin: 03/01/25 08:58 Dose: 120 mls/hr Bumetanide 20 mg/ IV (Miscellaneous Supplies) 80 mls @ 8 mls/hr IV .Q10H [facility] Stop: 03/02/25 04:33 Last Admin: 03/02/25 02:26 Dose: 2 mg/hr, 8 mls/hr Azithromycin 500 mg/ Sodium (Chloride) 250 mls @ 250 mls/hr IV QDAY [facility] Stop: 03/03/25 10:18 Last Admin: 03/03/25 09:20 Dose: 250 mls/hr Ceftriaxone Sodium/Dextrose (Rocephin/D5w 1gm Iv Premix) 1 gm in 50 mls @ 100 mls/hr IV QDAY [facility] Stop: 03/06/25 10:18 Last Infusion: 03/06/25 09:58 Dose: Infused Dexmedetomidine/Sodium Chloride (Precedex Ivpb) 400 mcg in 100 mls @ 12.34 mls/hr IV .Q8H7M PRN; Protocol PRN Reason: Per PROTOCOL Stop: 03/31/25 18:13 Dexmedetomidine/Sodium Chloride (Precedex Ivpb) 200 mcg in 50 mls @ 12.34 mls/hr IV .Q4H4M PRN; Protocol PRN Reason: Per PROTOCOL Stop: 03/31/25 18:25 Last Titration: 03/03/25 02:00 Dose: 0 mcg/kg/hr, 0 mls/hr Bumetanide 20 mg/ IV (Miscellaneous Supplies) 80 mls @ 8 mls/hr IV .Q10H [facility] Stop: 03/03/25 08:51 Last Admin: 03/02/25 23:36 Dose: 2 mg/hr, 8 mls/hr Albumin Human (Albuminar-25 Ivpb) 12.5 gm in 50 mls @ 50 mls/hr IV X1 ONE Stop: 03/03/25 09:47 Last Admin: 03/03/25 09:17 Dose: 50 mls/hr Bumetanide 20 mg/ IV (Miscellaneous Supplies) 80 mls @ 8 mls/hr IV .Q10H [facility] Stop: 03/04/25 05:15 Last Admin: 03/03/25 20:06 Dose: 2 mg/hr, 8 mls/hr Potassium Chloride (Kcl Ivpb) 10 meq in 100 mls @ 100 mls/hr IV Q1H [facility] Stop: 03/03/25 13:21 Last Admin: 03/03/25 14:47 Dose: Not Given Potassium Chloride (Kcl Ivpb) 10 meq in 100 mls @ 100 mls/hr IV X1 ONE Stop: 03/03/25 15:42 Last Admin: 03/03/25 14:48 Dose: 100 mls/hr Magnesium Sulfate (Magnesium Sulfate Ivpb) 2 gm in 50 mls @ 25 mls/hr IV X1 ONE Stop: 03/04/25 12:13 Last Admin: 03/04/25 11:46 Dose: 25 mls/hr Magnesium Sulfate (Magnesium Sulfate Ivpb) 2 gm in 50 mls @ 25 mls/hr IV X1 ONE Stop: 03/05/25 10:08 Last Admin: 03/05/25 10:02 Dose: 25 mls/hr Acetazolamide Sodium 250 mg/ (Sodium Chloride) 50 mls @ 100 mls/hr IV X1 ONE Stop: 03/05/25 10:52 Last Admin: 03/05/25 12:26 Dose: 100 mls/hr Doxycycline Hyclate 100 mg/ (Sodium Chloride) 100 mls @ 100 mls/hr IV BID [facility] Stop: 03/12/25 23:29 Last Infusion: 03/06/25 09:58 Dose: Infused Magnesium Sulfate (Magnesium Sulfate Ivpb) 2 gm in 50 mls @ 25 mls/hr IV X1 ONE Stop: 03/06/25 01:42 Last Admin: 03/06/25 02:23 Dose: 25 mls/hr Propofol (Diprivan Ivpb) 1,000 mg in 100 mls @ 6.967 mls/hr IV .[id number] PRN; Protocol PRN Reason: PER PROTOCOL Stop: 04/05/25 02:56 Last Titration: 03/06/25 19:54 Dose: 0 mcg/kg/min, 0 mls/hr Fentanyl Citrate (Sublimaze Inj 2,500 Mcg/250 Ml Bag) 2,500 mcg in 250 mls @ 2.5 mls/hr IV .Q24H PRN; Protocol PRN Reason: PER PROTOCOL Stop: 03/11/25 02:57 Last Titration: 03/06/25 19:54 Dose: Infused Dexmedetomidine/Sodium Chloride (Precedex Ivpb) 200 mcg in 50 mls @ 11.37 mls/hr IV .Q4H24M PRN; Protocol PRN Reason: Per PROTOCOL Stop: 04/05/25 18:37 Last Titration: 03/07/25 10:55 Dose: 0 mcg/kg/hr, 0 mls/hr Amiodarone HCl/Dextrose (Nexterone Ivpb) 150 mg in 100 mls @ 600 mls/hr IV .Q10M ONE Stop: 03/10/25 10:56 Last Admin: 03/10/25 11:45 Dose: 600 mls/hr Insulin Glargine (Insulin Glargine (Lantus) 5 Unit/0.05 Ml (Per 5 Units)) 6 unit SC HS [facility] Stop: 04/03/25 20:59 Insulin Glargine (Insulin Glargine (Lantus) 5 Unit/0.05 Ml (Per 5 Units)) 8 unit SC HS [facility] Stop: 04/03/25 20:59 Last Admin: 03/04/25 21:14 Dose: 8 unit Insulin Glargine (Insulin Glargine (Lantus) 5 Unit/0.05 Ml (Per 5 Units)) 12 unit SC HS [facility] Stop: 04/04/25 20:59 Insulin Glargine (Insulin Glargine (Lantus) 5 Unit/0.05 Ml (Per 5 Units)) 14 unit SC HS [facility] Stop: 04/04/25 20:59 Last Admin: 03/05/25 23:28 Dose: 14 unit Insulin Glargine (Insulin Glargine (Lantus) 5 Unit/0.05 Ml (Per 5 Units)) 6 unit SC HS [facility] Stop: 04/06/25 20:59 Insulin Human Lispro (Insulin Lispro (Admelog) 1 Unit/0.01 Ml Unit) 0 unit SC AC [facility]; Protocol Stop: 04/02/25 11:29 Last Admin: 03/05/25 17:36 Dose: 2 unit Insulin Human Lispro (Insulin Lispro (Admelog) 1 Unit/0.01 Ml Unit) 0 unit SC ACHS [facility]; Protocol Stop: 04/04/25 23:14 Last Admin: 03/05/25 23:27 Dose: 2 unit Insulin Human Lispro (Insulin Lispro (Admelog) 1 Unit/0.01 Ml Unit) 0 unit SC Q6H [facility]; Protocol Stop: 04/05/25 03:59 Last Admin: 03/06/25 06:45 Dose: Not Given Ipratropium [place] (Ipratropium Rt 0.5 Mg/ 2.5 Ml Nebu) 0.5 mg INH Q8HR [facility] Stop: 04/05/25 05:59 Ipratropium [place] (Ipratropium Rt 0.5 Mg/ 2.5 Ml Nebu) 0.5 mg INH Q4H [facility] Stop: 04/05/25 03:59 Last Admin: 03/07/25 13:59 Dose: Not Given Ipratropium [place] (Ipratropium Rt 0.5 Mg/ 2.5 Ml Nebu) 0.5 mg INH Q4HRRT [facility] Stop: 04/05/25 14:59 Levalbuterol HCl (Levalbuterol Rt 0.63 Mg/3 Ml Nebu) 0.63 mg INH Q8HR [facility] Stop: 04/05/25 05:59 Levalbuterol HCl (Levalbuterol Rt 0.63 Mg/3 Ml Nebu) 1.25 mg INH Q4H [facility] Stop: 04/05/25 03:59 Last Admin: 03/07/25 13:59 Dose: Not Given Melatonin (Melatonin 3 Mg Tablet) 3 mg PO X1 ONE Stop: 03/04/25 21:01 Last Admin: 03/04/25 21:12 Dose: 3 mg Metolazone (Metolazone 2.5 Mg Tablet) 10 mg PO X1 ONE Stop: 03/06/25 11:00 Last Admin: 03/06/25 11:34 Dose: 10 mg Metolazone (Metolazone 2.5 Mg Tablet) 10 mg PO X1 ONE Stop: 03/07/25 08:47 Last Admin: 03/07/25 09:12 Dose: 10 mg Metoprolol Succinate (Metoprolol Succinate Xl 25 Mg Tabcr) 50 mg PO BID [facility] Stop: 04/01/25 09:29 Last Admin: 03/03/25 09:21 Dose: 50 mg Metoprolol Succinate (Metoprolol Succinate Xl 25 Mg Tabcr) 50 mg PO X1 ONE Stop: 03/03/25 13:17 Last Admin: 03/03/25 14:49 Dose: 50 mg Metoprolol Tartrate (Metoprolol Tartrate Inj 1 Mg/Ml Amp 5 Ml) 5 mg IVP X1 [facility] Stop: 03/01/25 18:37 Last Admin: 03/01/25 18:41 Dose: 5 mg Metoprolol Tartrate (Metoprolol Tartrate Inj 1 Mg/Ml Amp 5 Ml) 2 mg IVP X1 ONE Stop: 03/10/25 04:18 Last Admin: 03/10/25 04:22 Dose: Not Given Metoprolol Tartrate (Metoprolol Tartrate Inj 1 Mg/Ml Amp 5 Ml) 2 mg IVP X1 ONE Stop: 03/10/25 04:18 Last Admin: 03/10/25 04:31 Dose: 2 mg Midodrine (Midodrine 5 Mg Tablet) 10 mg PO Q6HR KOURTNEY Stop: 03/30/25 11:59 Last Admin: 03/02/25 13:43 Dose: 10 mg Midodrine (Midodrine 5 Mg Tablet) 5 mg PO Q6HR KOURTNEY Stop: 04/01/25 17:59 Last Admin: 03/04/25 11:28 Dose: Not Given Nitroglycerin (Nitroglycerin 0.4 Mg Subl Btl #25) 0.4 mg SL Q5MIN PRN PRN Reason: CHEST PAIN Pharmacy Consult (Vancomycin Pharmacy To Dose 1 Each Each) 1 each IV QDAY PRN PRN Reason: CONSULT Stop: 03/29/25 14:29 Potassium Chloride (Potassium Chloride 20 Meq Tabcr) 20 meq PO X1 ONE Stop: 03/03/25 14:43 Last Admin: 03/03/25 14:49 Dose: 20 meq Potassium Chloride (Potassium Chloride 20 Meq Tabcr) 40 meq PO X1 ONE Stop: 03/04/25 07:59 Last Admin: 03/04/25 08:56 Dose: 40 meq Potassium Chloride (Potassium Chloride 20 Meq Tabcr) 40 meq PO X1 ONE Stop: 03/05/25 08:10 Last Admin: 03/05/25 09:50 Dose: 40 meq Potassium Chloride (Potassium Chloride 20 Meq Tabcr) 40 meq PO X1 ONE Stop: 03/08/25 10:44 Last Admin: 03/08/25 11:30 Dose: 40 meq Rocuronium [place] (Rocuronium Inj 10 Mg/Ml Vial 10 Ml) 100 mg IVP X1 ONE Stop: 02/27/25 06:13 Last Admin: 02/27/25 06:14 Dose: 100 mg Rocuronium [place] (Rocuronium Inj 10 Mg/Ml Vial 10 Ml) 100 mg IV X1 ONE Stop: 02/27/25 07:40 Last Admin: 02/27/25 07:44 Dose: 100 mg Rocuronium [place] (Rocuronium Inj 10 Mg/Ml Vial 10 Ml) 130 mg IV X1 ONE Stop: 03/06/25 02:54 Last Admin: 03/06/25 06:45 Dose: Not Given Rocuronium [place] (Rocuronium Inj 10 Mg/Ml Vial 10 Ml) 100 mg IV X1 ONE Stop: 03/06/25 02:54 Last Admin: 03/06/25 03:18 Dose: 100 mg Sodium Chloride (Sodium Chloride Rt 10% 15 Ml Nebu) 5 ml INH X1 ONE Stop: 02/27/25 14:39 Last Admin: 03/02/25 09:20 Dose: Not Given Sodium Chloride (Sodium Chloride Rt 10% 15 Ml Nebu) 5 ml INH X1 ONE Stop: 03/06/25 03:25 Last Admin: 03/07/25 13:55 Dose: Not Given Sodium Polystyrene Sulfonate (Sod Polystyrene Sulfon Susp 15 Gm/60 Ml Btl) 30 gm PO X1 ONE Stop: 03/01/25 10:19 Last Admin: 03/01/25 10:58 Dose: 30 gm Assessment & Plan Plan 64-year-old male with past medical history of DM2, hypertension, and A-fib was admitted to the ICU on 02/27/2025 for shock and acute hypoxic respiratory failure. He was extubated on 03/03 and downgraded then re-intubated on 03/06 due to confusion and tachypneia. He was then extubated and downgraded to the floor on 03/07. On 03/10, patient again had decreased mentation on the BiPAP so was reintubated and upgraded. 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 Patient intubated, sedated for vent Continue propofol and fentanyl with RASS goal of -2 CVS: #Right diastolic CHF Echo could not visualize all chambers and could not provide ejection fraction Patient was on Bumex 1 mg twice daily but will hold due to worsening KENIA and soft BP Daily weights Strict I&O measurement #Hx of A-fib [id number] score of 3 points indicating 3.2% risk of stroke per year Has bled score of 0 Continue PO amiodarone 200 mg qday Held metoprolol succinate 100 mg BID for BP, resume if HR not controlled Continue Xarelto 20 mg daily Echo could not visualize all chambers Respiratory: #Acute on chronic hypoxic and hypercapnic respiratory failure #Obesity hypoventilation syndrome and obstructive sleep apnea #Community-acquired pneumonia Patient was intubated on 02/27/2025, extubated 03/03/2025. Reintubated on 03/06/2025 and extubated 03/07/2025. Reintubated 03/10/2025 for hypercapnic encephalopathy Blood gas today pH 7.31, pCO2 81, pO2 63, HCO3 41 CXR today appeared improved from 03/07 Patient had completed Rocephin (03/06/2025) Ordered sputum culture Mechanical ventilation Daily CXR and ABG Renal: #KENIA #Metabolic alkalosis Creatinine today 1.6, baseline is around 1 Alkalosis most likely due to compensation versus contraction alkalosis from diuresis Held Bumex 1 mg twice daily Avoid nephrotoxic agent Renally dose medication GI: stable Endo: #Morbid obesity Patient has a BMI of 79.5 #DM2 A1C 7.6 on 03/05/2025 ISS Hypoglycemia protocol ordered Heme: #Leukocytosis uptrending but no fevers ID: #Community-acquired pneumonia Finished Rocephin (03/06/2025) Hospital Maintenance: Diet: NPO DVT ppx: Xarelto GI ppx: protonix IV lines: PIV Fuller: No Code status: Full code Dispo: ICU for acute on chronic hypoxic and hypercapnic respiratory failure. Patient plan of care was discussed with the attending physician, Dr. Ruth. Evi Betts, PGY-2
[2025-03-10] MEDS: ETOMIDATE INJ 2 MG/ML VIAL 10 ML 40 MG IVP (15:55)
--- NOTE | 2025-03-10 15:59 | XR_ITS ---
Examination: AP chest single view Technique one AP portable semiupright chest single view Exam date and time: March 10, 2025 1639 hours Comparison March 07, 2025 INDICATIONS: Hypoxic respiratory failure postintubation FINDINGS: Mild enlargement cardiac contour Moderate vascular congestion. Mild bibasilar pneumonia. Endotracheal tube tip 4.5 cm above nunu Orogastric tube is poorly visualized but appears to be in the stomach IMPRESSION: Moderate vascular congestion Mild bibasilar pneumonia
[2025-03-10] MEDS: MIDAZOLAM INJ 1 MG/ML VIAL 2 ML 2 MG IVP (16:00)
[2025-03-10] MEDS: PROPOFOL 1,000 MG IVPB 1,000 MG/100 ML VIAL 6.801 MG IV (16:03)
[2025-03-10] MEDS: fentaNYL 2,500 MCG/250 ML BAG 2,500 MCG/250 ML BAG IV (16:03)
--- NOTE | 2025-03-10 16:40 | ESOP_ITS ---
Procedures Procedure Date / Time 03/10/25 1609 Intubation Indication(s): acute Resp Failure and inability to protect airway Informed consent obtained: from patient Time out done, and the following verified: correct patient, side and site, procedure, patient position and implants and/or equipment Sedative: etomidate Mg given: 40 Paralytic: succinylcholine Mg given: 100 Laryngoscope: Babak ET tube size: 8 ET tube uncuffed: No Tube secured depth (cm): 26 Tube secured location: teeth Tube placement confirmation: visualized tube passing through cords, equal breath sounds bilaterally, no breath sounds over epigastrium and confirmation by capnometry Patient tolerated procedure: well and no complications EBL(ml): 5 Intubation complications: difficult intubation Additional comments: Procedure performed under supervision of Dr. Penny. Poncho Espinosa MD, PGY 2. Disclaimer: This note was dictated by speech recognition. Minor errors in funeral service practitioner/embalmer may be present due to voice recognition software.
[2025-03-10 17:14] LABS: Base Excess 13 (-3-3); HCO3 41 mEq/L (20-26); Inspired Oxygen, FIO2 21 %; O2 Saturation 94 % (91-98); PCO2 66 mmHg (32.0-48.0); PO2 68 mmHg (83-108)
[2025-03-10 17:19] LABS: Allen Test Not Performed; Puncture Site Right Brachial
--- NOTE | 2025-03-10 17:49 | ESPR_ITS ---
<Statement entered by Pavel Mendoza MD - 03/13/25 14:55> I reviewed above note and agree with findings and plans. I have also personally examined the patient with medicine team and went over assessment and plan with medical team including music industry intern and resident physician. <Statement entered by Ermias Torre MD - 03/11/25 10:21> Patient continues on BIPAP and ABG are worsening. Discussed with ICU regarding worsening conditions. Will continue with BIPAP adjustments and frequent ABG's. Case discussed with team. Ermias Torre MD PGY3. Documentation for date of: 03/10/25 Subjective Subjective Interval history: Overnight team reported patient failed swallow screen therefore was unable to take his p.o. metoprolol and was given IV metoprolol stat. Patient seen and examined at bedside this morning. Patient remained on BiPAP from 8 PM last night, patient appears to be more somnolent as well as obtunded and not answering questions properly including not even nodding. Repeat ABG is ordered showing (pH 7.28 , pCO2 90 , PO247 , HCO3 43 ) despite on BiPAP with FiO2 increased to 45, IPAP 20 EPAP 8 respirations 20, patient is worsening respiratory acidosis with with increased CO2 retention, ICU team is consulted patient has become increasingly obtunded and not responding to question answer or following commands. Decision is made to upgrade the patient to ICU for intubation. Exam Vital Signs Temp Pulse Resp BP Pulse Ox O2 Del Method O2 Flow Rate 101.4 F H 89 20 96/77 99 BiPAP 5 03/10/25 12:19 03/10/25 16:15 03/10/25 15:20 03/10/25 15:20 03/10/25 16:15 03/10/25 11:46 03/10/25 11:46 FiO2 100 03/10/25 16:15 Narrative Exam General: Awake. Morbidly obese. Anasarca. On BiPAP HEENT: Normocephalic, atraumatic, mucous membranes moist. Heart: Irregular rate and rhythm, no murmurs. Lungs: Clear to auscultation with no wheezing or crackles. Abdomen: Soft, nondistended, nontender, positive bowel sounds. ?No guarding or rebound tenderness. Neurologic: Alert and oriented x3, no gross neurological deficit, and patient able to move all 4 extremities. Extremities: Bilateral 4+ pitting pedal edema extending up to the abdomen. Scrotal edema noted Skin: No rash or ecchymoses. Objective Labs 03/10/25 05:49 03/10/25 05:49 Labs: Laboratory Results - last 24 hr 03/09/25 03/09/25 03/10/25 17:29 23:24 05:49 WBC 20.5 H RBC 4.75 Hgb 13.7 Hct 45.6 MCV 96 MCH 28.8 MCHC 30.0 L RDW Std Deviation 49.5 H Plt Count 478 H D Neut % (Auto) 86 H Lymph % (Auto) 3 L [facility] % (Auto) 9 Eos % (Auto) 1 Baso % (Auto) 0 Neut # (Auto) 17.5 H Lymph # (Auto) 0.6 L [facility] # (Auto) 1.9 H Eos # (Auto) 0.1 Baso # (Auto) 0.1 Immature Gran # (Auto) 0.18 H Absolute Nucleated RBC 0.00 Immature Gran % 1 H Nucleated RBC % 0 Puncture Site Right Brachial Right Radial ABG pH 7.29 L 7.32 L ABG pCO2 88 H* 78 H* D ABG pO2 85 D 69 L ABG HCO3 43 H 40 H ABG O2 Saturation 97 94 ABG Base Excess 12 H 11 H FiO2 21 45 Sodium 146 H Potassium 3.9 Chloride 101 Carbon Dioxide 37.6 H Anion Gap 7 BUN 49 H Creatinine 1.6 H Estim Creat Clear Calc 84.0 eGFR 48 L BUN/Creatinine Ratio 31 H Glucose 243 H Calculated Osmolality 311 H Calcium 9.1 Corrected Calcium 9.6 Magnesium 2.0 Total Bilirubin 0.5 AST 28 ALT 25 Alkaline Phosphatase 128 H Total Protein 6.2 Albumin 3.4 Globulin 2.8 Albumin/Globulin Ratio 1.2 03/10/25 03/10/25 03/10/25 07:17 11:25 16:56 WBC RBC Hgb Hct MCV MCH MCHC RDW Std Deviation Plt Count Neut % (Auto) Lymph % (Auto) [facility] % (Auto) Eos % (Auto) Baso % (Auto) Neut # (Auto) Lymph # (Auto) [facility] # (Auto) Eos # (Auto) Baso # (Auto) Immature Gran # (Auto) Absolute Nucleated RBC Immature Gran % Nucleated RBC % Puncture Site Left Brachial Right Radial Right Brachial ABG pH 7.28 L 7.31 L 7.40 ABG pCO2 90 H* D 81 H* 66 H D ABG pO2 47 L* D 63 L 68 L ABG HCO3 43 H 41 H 41 H ABG O2 Saturation 80 L 93 94 ABG Base Excess 12 H 11 H 13 H FiO2 35 100 21 Sodium Potassium Chloride Carbon Dioxide Anion Gap BUN Creatinine Estim Creat Clear Calc eGFR BUN/Creatinine Ratio Glucose Calculated Osmolality Calcium Corrected Calcium Magnesium Total Bilirubin AST ALT Alkaline Phosphatase Total Protein Albumin Globulin Albumin/Globulin Ratio ABG Interpretation ABG results: 02/27/25 02/28/25 03/01/25 06:55 04:57 04:39 ABG pH 7.27 L 7.37 D 7.41 ABG pCO2 57 H 48 44 ABG pO2 101 78 L D 69 L ABG HCO3 26 28 H 28 H ABG O2 Saturation 98 95 93 ABG Base Excess -2 2 3 VBG pH VBG pCO2 VBG pO2 VBG Base Excess 03/01/25 03/01/25 03/02/25 13:15 14:52 04:25 ABG pH Cancelled 7.41 7.45 ABG pCO2 Cancelled 45 42 ABG pO2 Cancelled 53 L* 66 L ABG HCO3 Cancelled 28 H 29 H ABG O2 Saturation Cancelled 85 L 92 ABG Base Excess Cancelled 3 5 H VBG pH VBG pCO2 VBG pO2 VBG Base Excess 03/03/25 03/05/25 03/05/25 04:40 16:30 16:55 ABG pH 7.45 Cancelled 7.34 L D ABG pCO2 43 Cancelled 72 H* D ABG pO2 72 L Cancelled 83 ABG HCO3 30 H Cancelled 38 H ABG O2 Saturation 94 Cancelled 95 ABG Base Excess 5 H Cancelled 9 H VBG pH VBG pCO2 VBG pO2 VBG Base Excess 03/05/25 03/06/25 03/06/25 23:36 01:48 05:22 ABG pH 7.37 7.34 L 7.52 H D ABG pCO2 67 H 74 H* 47 D ABG pO2 150 H D 88 D 160 H D ABG HCO3 38 H 40 H 38 H ABG O2 Saturation 99 H 96 100 H ABG Base Excess 10 H 11 H 13 H VBG pH VBG pCO2 VBG pO2 VBG Base Excess 04/03/07/25 03/07/25 17:10 05:00 14:03 ABG pH 7.46 H ABG pCO2 53 H ABG pO2 65 L D ABG HCO3 38 H ABG O2 Saturation 93 ABG Base Excess 12 H VBG pH 7.50 7.52 VBG pCO2 50 47 VBG pO2 70 H 61 H VBG Base Excess 13 H 14 H 03/09/25 03/09/25 03/09/25 08:17 10:25 17:29 ABG pH 7.25 L D 7.29 L 7.29 L ABG pCO2 93 H* D 85 H* 88 H* ABG pO2 81 L 57 L* D 85 D ABG HCO3 41 H 40 H 43 H ABG O2 Saturation 95 89 L 97 ABG Base Excess 10 H 10 H 12 H VBG pH VBG pCO2 VBG pO2 VBG Base Excess 03/09/25 03/10/25 03/10/25 23:24 07:17 11:25 ABG pH 7.32 L 7.28 L 7.31 L ABG pCO2 78 H* D 90 H* D 81 H* ABG pO2 69 L 47 L* D 63 L ABG HCO3 40 H 43 H 41 H ABG O2 Saturation 94 80 L 93 ABG Base Excess 11 H 12 H 11 H VBG pH VBG pCO2 VBG pO2 VBG Base Excess 03/10/25 16:56 ABG pH 7.40 ABG pCO2 66 H D ABG pO2 68 L ABG HCO3 41 H ABG O2 Saturation 94 ABG Base Excess 13 H VBG pH VBG pCO2 VBG pO2 VBG Base Excess Quality Measures Quality Measures sepsis Current suspected stage: ruled out Possible source: pulmonary Blood cultures ordered: completed in ED Antibiotic ordered: No Advance care planning discussed with:: patient Assessment & Plan Assessment Current Active Medications: Generic Name Dose Route Start Last Admin Trade Name Freq PRN Reason Stop Dose Admin Acetaminophen 650 mg 02/27/25 09:24 Acetaminophen 325 Mg Tablet PO 03/29/25 09:23 Q4HR PRN PAIN SCALE 1-3 (mild Al Hydrox/Mg Hydrox/Simethicone 30 ml 02/27/25 09:24 Mg Hyd/Al Hyd/Virgilio (Maalox Reg) Susp 30 Ml Udc PO 03/29/25 09:23 Q4HR PRN Heartburn or Upset Stomach Amiodarone HCl 200 mg 03/01/25 09:00 03/10/25 10:00 Amiodarone Hcl 200 Mg Tablet PO 03/31/25 08:59 Not Given QDAY [facility] Bumetanide 1 mg 03/07/25 09:00 03/08/25 20:16 Bumetanide Inj 0.25 Mg/Ml Vial 4 Ml IVP 04/06/25 08:59 1 mg BID KOURTNEY Administration Dextrose 25 ml 03/03/25 08:20 Dextrose 50%-Water Inj 50 Ml Syringe IV 04/02/25 08:19 Q15MIN PRN BG 50-70 responsive npo pt Dextrose 50 ml 03/03/25 08:20 Dextrose 50%-Water Inj 50 Ml Syringe IV 04/02/25 08:19 Q15MIN PRN BG <50 OR BG <70 & pt unresponsive Glucagon 1 mg 03/03/25 08:20 Glucagon Inj 1 Mg Vial IM Q15MIN PRN BG <70, and no IV access Fentanyl Citrate 2,500 mcg in 250 mls @ 2.5 mls/hr 03/10/25 15:56 03/10/25 16:03 Sublimaze Inj 2,500 Mcg/250 Ml Bag IV 03/15/25 15:55 25 mcg/hr .Q24H PRN 2.5 mls/hr PER PROTOCOL Administration Protocol 25 MCG/HR Propofol 1,000 mg in 100 mls @ 6.801 mls/hr 03/10/25 15:56 03/10/25 16:03 Diprivan Ivpb IV 04/09/25 15:55 5 mcg/kg/min .[id number] PRN 6.801 mls/hr PER PROTOCOL Administration Protocol 5 MCG/KG/MIN Insulin Human Lispro 0 unit 03/06/25 06:00 03/10/25 12:14 Insulin Lispro (Admelog) 1 Unit/0.01 Ml Unit SC 04/05/25 05:59 Not Given Q6H [facility] Protocol Magnesium Hydroxide 30 ml 02/27/25 09:24 Milk Of Magnesia Susp 30 Ml Udc PO 03/29/25 09:23 QDAY PRN CONSTIPATION Metoprolol Succinate 100 mg 03/03/25 21:00 03/09/25 20:53 Metoprolol Succinate Xl 25 Mg Tabcr PO 04/02/25 20:59 Not Given BID KOURTNEY Metoprolol Tartrate 5 mg 03/09/25 22:00 03/10/25 14:30 Metoprolol Tartrate Inj 1 Mg/Ml Amp 5 Ml IVP 04/08/25 21:59 Not Given Q8HR KOURTNEY Ondansetron HCl 4 mg 03/05/25 20:46 03/09/25 03:49 Ondansetron Inj 2 Mg/Ml Inj 2 Ml IV 04/04/25 20:45 4 mg Q6HR PRN Administration NAUSEA OR VOMITING Protocol Pantoprazole Sodium 40 mg 02/27/25 11:15 03/10/25 09:48 Pantoprazole Inj 40 Mg Vial IV 03/29/25 11:14 40 mg QDAY KOURTNEY Administration Rivaroxaban 20 mg 03/04/25 17:30 03/09/25 18:05 Rivaroxaban 10 Mg Tablet PO 04/03/25 17:29 20 mg WSUPPER KOURTNEY Administration Plan A 64-year-old male with significant past medical history of hypertension, diabetes mellitus, A-fib is admitted to the ICU on 02/27/2025 in view of altered mental status and shortness of breath for acute hypoxic respiratory failure and was intubated in view of suspected obesity hypoventilation syndrome/obstructive sleep apnea/pneumonia and acute kidney injury. extubated on 03/03/2025 and downgraded to the floors for further management. But on 03/05/2025, as patient is still having CO2 retention on BiPAP,. #Acute hypoxic respiratory failure # Heart failure, predominantly right heart failure # In the setting of suspected OHS/BASIA in the setting of morbid obesity - Patient did not have any previous history of heart disease as except for A-fib - Presented to the hospital with chief complaints of shortness of breath and fainting - On physical examination, patient is morbidly obese and anasarca noted, which could be due to right heart failure from BASIA/OHS - Chest x-ray showed bilateral moderate vascular congestion - Echo could not visualize all chambers and could not provide ejection fraction -Patient was intubated on 02/27/2025, extubated 03/03/2025, reintubated on 03/05 and extubated on 03/07 -Cocci came back negative Plan -Supplemental oxygen as needed - Will continue bedtime CPAP - Started on bumex 1mg IV once daily - Will continue to monitor renal functions and electrolytes - Fluid and salt restriction - Consulted Dr. John, will appreciate his recommendations #Hypernatremia #hypokalemia #Metabolic alkalosis - As of 03/08/2025, sodium is 147, Potassium 3.1, Bicarb 38 -Likely in the setting of diureses Plan - Water restriction was increased to 2000 cc - Encouraged to take oral fluids - will continue to monitor labs -Potassium repleted #KENIA vs Acute on CKD, improving Likely cardiorenal syndrome in the setting of severe right heart failure - Baseline creatinine is 0.9 in 2021 - Creatinine at the time of admission is 2.1, continued to uptrend and peaked at 3.1 on 03/01/2025, later started to downtrend and as of 03/08/2025, creatinine is 1.2 Plan - Will continue IV Bumex 1 Mg twice daily - Will continue to monitor renal functions - Avoid nephrotoxic medications and renally dose medications #Hx of A-fib - Patient does have a history of A-fib - On metoprolol succinate 100 mg - Not on any anticoagulation - [id number] score is 4, history of diabetes mellitus, hypertension, CHF, male sex Plan - Continue PO amiodarone 200 mg qday - Continue metoprolol succinate 100 Mg p.o. twice daily - Will continue Xarelto - Cardiology Dr. John is consulted and will follow recommendations # Diabetes mellitus - HbA1c in 03/05/25 is 7.6 Plan - Patient is started on insulin sliding scale and glargine 6 units subcutaneous at bedtime - Will adjust insulin based on blood sugars - Hypoglycemic protocol is in place #Transaminitis #Hyperbilirubinemia, resolved Likely elevated in the setting of right heart failure Will continue to monitor on daily CMP # Morbid obesity Patient has a BMI of 79.5 Patient had history of gastric bypass 10 years ago, lost significant amount of weight at the time and regained it later Recommended to follow-up in outpatient basis to work on weight loss Hospital Maintenance: Diet: low sodium, carb consistent diet DVT ppx: Xarelto GI ppx: protonix IV lines: PIV Code status: Full code Assessment and plan discussed with my senior resident Dr. Torre & attending physician Dr. Kelly Sanchez (PGY-1)- Internal medicine resident Attending Provider Attestation/Addendum
--- NOTE | 2025-03-10 18:42 | XR_ITS ---
Examination: AP chest single view TECHNIQUE: AP portable semiupright chest single view INDICATIONS: Orogastric tube placement FINDINGS: Final pelvis cardiac contour The patient's pneumonia Orogastric tube projects in the stomach No vascular congestion Endotracheal tube tip 5.7 cm above nunu IMPRESSION: Advance the orogastric tube 3 cm with follow-up KUB
[2025-03-10] MEDS: PROPOFOL 1,000 MG IVPB 1,000 MG/100 ML VIAL 47.607 MG IV ×2 (19:25→22:00)
--- NOTE | 2025-03-10 19:40 | XR_ITS ---
Examination: Abdomen AP single view Technique: AP portable supine abdomen, single view Exam date and time: March 10, 20252007 hours INDICATIONS: Post orogastric tube placement orogastric tube tip in the body of the stomach satisfactory position IMPRESSION: Orogastric tube tip in the body of the stomach satisfactory position
--- NOTE | 2025-03-10 19:44 | PC.NURSE ---
at 1630, OG inserted to 70 at gum, Xray obtained, at 1800, OG found to be coiled in pt mouth and at 58 at gum, Dr. Betts and Dr. Fragoso notified, per MDs remove OG and replace and obtain new XRAY, second attempt of OG placed and xray obtained
[2025-03-10] MEDS: CEFEPIME INJ 1 GM in SODIUM CHLORIDE 0.9% (Popper) 50 ML IV (19:48)
[2025-03-10 19:50] LABS: Lactate (Lactic Acid) 1.9 mMol/L (0.4-2.0)
[2025-03-10 19:51] LABS: Basophils # (Auto) 0.1 Thou/mm3 (0.0-0.2); Basophils % (Auto) 1 % (0-2.5); Eosinophils # (Auto) 0.1 Thou/mm3 (0.0-0.5); Eosinophils % (Auto) 0 % (0-10); Hematocrit 39.3 % (41.0-53.0); Hemoglobin 12.1 g/dL (13.5-16.0); Immature Granulocytes % (Auto) 1 % (0-0); Immature Granulocytes Auto 0.14 Thou/mm3 (0.00-0.00); Lymphocytes # (Auto) 0.8 Thou/mm3 (1.0-4.8); Lymphocytes % (Auto) 5 % (10-50); Mean Corpuscular HGB Conc 30.8 g/dl (31.0-37.0); Mean Corpuscular Hemoglobin 28.8 pg (25.0-35.0); Mean Corpuscular Volume 94 fL (80-100); Monocytes # (Auto) 1.7 Thou/mm3 (0.0-0.8); Monocytes % (Auto) 11 % (0-12); Neutrophils # (Auto) 12.8 Thou/mm3 (1.8-7.7); Neutrophils % (Auto) 82 % (37-80); Nucleated Red Blood Cell % 0 /100 WBC (0); Platelet Count 391 Thou/mm3 (140-440); RDW Standard Deviation 47.5 fL (35.1-43.9); White Blood Count 15.5 Thou/mm3 (3.8-10.6)
[2025-03-10 20:38] LABS: Alanine Aminotransferase 18 U/L (10-49); Albumin/Globulin Ratio 1.3 (1.2-2.2); Alkaline Phosphatase 105 U/L (46-116); Anion Gap 9 (7-16); Aspartate Amino Transferase 23 U/L (0-34); BUN/Creatinine Ratio 31 Ratio (12-20); Bilirubin,Total 0.5 mg/dL (0.3-1.2); Blood Urea Nitrogen 61 mg/dL (9-23); Calcium 8.7 mg/dL (8.3-10.6); Calcium (Corrected) 9.5 mg/dL (8.5-10.1); Carbon Dioxide 35.5 mMol/L (20.0-31.0); Chloride 106 mMol/L (98-107); Estimated Creatinine Clearance 67.2 mL/min (>60); Globulin 2.4 gm/dL (2.3-3.5); Glucose 236 mg/dL (74-106); Osmolality,Calculated 323 (275-295); Potassium 4.1 mMol/L (3.4-5.1); Sodium 150 mMol/L (136-145); Total Protein 5.4 gm/dL (5.7-8.2); eGFR 36 See Note
[2025-03-10] MEDS: RIVAROXABAN 10 MG TABLET 20 MG PO (21:03)
[2025-03-10] MEDS: RINGERS LACTATED 500 ML 500 ML 999 ML IV (21:10)
--- NOTE | 2025-03-10 22:58 | ESPR_ITS ---
RE: KOFI CRAWFORD : 1960 DATE OF SERVICE: 03/10/2025 SUBJECTIVE: Kofi Crawford is a 64-year-old with history of hypertension, HFpEF, morbid obesity with obstructive sleep apnea, diabetes mellitus, and hypermetabolic syndrome, developed respiratory failure again with hypoxia, hypercapnia, requiring intubation and mechanical ventilation. He was transferred to the ICU. The patient is now on a ventilator again. The patient is mostly having combination of the reason for respiratory failure mostly due to COPD as well as pickwickian syndrome, CO2 retention, and marked fatigue as well. The patient also developed atrial fibrillation/flutter. The patient is receiving amiodarone. There were mostly right heart failure symptoms due to moderate pulmonary hypertension. Presently, he is on a beta- paul, metoprolol 100 mg twice daily along with amiodarone for atrial fibrillation, rate control reasonably well, slow down . He is getting medication resumed through the NG tube. The patient is also on rivaroxaban 20 mg. He may require tracheostomy or leave that up to the pulmonary assessment. The patient in the ICU in stable condition with hypoxic respiratory failure. His heart rate is about 110, AFib, blood pressure is 109/68, and saturation is 98% with an FiO2 of 80%. LABORATORY DATA: His lab data review showed hemoglobin is stable at 12.1, hematocrit is stable at 39, and white count is 15.5. Chemistry shows creatinine 2.0, BUN is 61, has gone up, and sodium also improved to 150. ABG showed 7.4 pH, pCO2 of 66, chronically elevated with bicarbonate of 41, patient has chronic respiratory acidosis with compensated alkalosis and pO2 is 68 on 80% FiO2. ASSESSMENT: 1. Acute hypoxic and hypercapnic respiratory failure. 2. Severe sleep apnea and obesity. 3. Right heart failure. 4. Prerenal azotemia. 5. Heart failure with preserved ejection fraction. 6. Diabetes mellitus. RECOMMENDATIONS: The patient has multiple issues, especially respiratory failure, may require tracheostomy, most of it is due to severe morbid obesity and combination of the factors. DT: :20:29 TT: 22:53:00 Ref: [id number] - TID: [id number]
[2025-03-11] VITALS (32 sets, daily range): BP systolic 94–126; BP diastolic 63–96; PULSE 87–110; RESP 18–27; TEMP 36.1–37.1; O2SAT 94–98; BMI 78.2
[2025-03-11] MEDS: PROPOFOL 1,000 MG IVPB 1,000 MG/100 ML VIAL 47.607 MG IV ×2 (00:50→03:31)
[2025-03-11] MEDS: INSULIN LISPRO (AdmeLOG) 1 UNIT/0.01 ML UNIT SC ×5 (01:09→23:52)
[2025-03-11] MEDS: fentaNYL 2,500 MCG/250 ML BAG 2,500 MCG/250 ML BAG 22.5 MCG IV (04:26)
[2025-03-11 04:43] LABS: Base Excess 15 (-3-3); HCO3 40 mEq/L (20-26); Inspired Oxygen, FIO2 70 %; O2 Saturation 94 % (91-98); PCO2 54 mmHg (32.0-48.0); PO2 67 mmHg (83-108); pH, Arterial 7.48 (7.35-7.45)
[2025-03-11 04:54] LABS: Allen Test Performed/OK; Puncture Site Left Radial
[2025-03-11 05:31] LABS: Basophils # (Auto) 0.1 Thou/mm3 (0.0-0.2); Basophils % (Auto) 1 % (0-2.5); Eosinophils # (Auto) 0.1 Thou/mm3 (0.0-0.5); Eosinophils % (Auto) 1 % (0-10); Hematocrit 35.9 % (41.0-53.0); Hemoglobin 11.3 g/dL (13.5-16.0); Immature Granulocytes % (Auto) 1 % (0-0); Immature Granulocytes Auto 0.11 Thou/mm3 (0.00-0.00); Lymphocytes % (Auto) 7 % (10-50); Mean Corpuscular HGB Conc 31.5 g/dl (31.0-37.0); Mean Corpuscular Hemoglobin 28.8 pg (25.0-35.0); Mean Corpuscular Volume 91 fL (80-100); Monocytes # (Auto) 1.7 Thou/mm3 (0.0-0.8); Monocytes % (Auto) 12 % (0-12); Neutrophils # (Auto) 10.8 Thou/mm3 (1.8-7.7); Neutrophils % (Auto) 78 % (37-80); Nucleated Red Blood Cell % 0 /100 WBC (0); Platelet Count 392 Thou/mm3 (140-440); RDW Standard Deviation 46.5 fL (35.1-43.9); Red Blood Count 3.93 Miln/mm3 (4.50-5.90); White Blood Count 13.9 Thou/mm3 (3.8-10.6)
--- NOTE | 2025-03-11 06:00 | XR_ITS ---
Examination: AP chest single view Technique one AP portable semiupright chest single view Standing time: March 11, 2025 0534 hours Comparison March 03 INDICATIONS: Hypoxic respiratory failure, postintubation this week, pneumonia or heart failure and earlier chest imaging FINDINGS: Tracheal tube tip 5.7 cm above Meggan Bibasilar and perihilar pneumonia Mild associated heart failure with enlarged cardiac contour and pulmonary vascular congestion. The film is underpenetrated to properly assess the orogastric tube IMPRESSION: Significant bibasilar pneumonia Mild associated heart failure Endotracheal tube tip 5.7 cm above Meggan
[2025-03-11 06:15] LABS: Alanine Aminotransferase 17 U/L (10-49); Albumin, Serum 2.9 gm/dL (3.4-4.8); Albumin/Globulin Ratio 1.3 (1.2-2.2); Alkaline Phosphatase 97 U/L (46-116); Anion Gap 7 (7-16); Aspartate Amino Transferase 24 U/L (0-34); BUN/Creatinine Ratio 31 Ratio (12-20); Bilirubin,Total 0.6 mg/dL (0.3-1.2); Blood Urea Nitrogen 69 mg/dL (9-23); Calcium 8.6 mg/dL (8.3-10.6); Calcium (Corrected) 9.5 mg/dL (8.5-10.1); Carbon Dioxide 37.9 mMol/L (20.0-31.0); Chloride 106 mMol/L (98-107); Creatinine (Component) 2.2 mg/dL (0.6-1.3); Estimated Creatinine Clearance 61.1 mL/min (>60); Globulin 2.3 gm/dL (2.3-3.5); Glucose 237 mg/dL (74-106); Magnesium 1.8 mg/dL (1.6-2.6); Osmolality,Calculated 327 (275-295); Potassium 3.6 mMol/L (3.4-5.1); Sodium 151 mMol/L (136-145); Total Protein 5.2 gm/dL (5.7-8.2); eGFR 32 See Note
[2025-03-11] MEDS: PROPOFOL 1,000 MG IVPB 1,000 MG/100 ML VIAL 20.403 MG IV ×2 (07:00→11:31)
[2025-03-11] MEDS: AMIODARONE HCL 200 MG TABLET PO (09:15)
[2025-03-11] MEDS: PANTOPRAZOLE INJ 40 MG VIAL IV (09:15)
--- NOTE | 2025-03-11 09:24 | PC.SS ---
Rounding: pt remains intubated and sedated
--- NOTE | 2025-03-11 11:23 | ESPR_ITS ---
<Statement entered by Apolonia Ruth MD - 03/12/25 10:31> TOTAL CC TIME: 45 MIN I saw and evaluated the patient. I reviewed the resident?s note and agree with findings and plan as documented in the resident?s note. Upon my evaluation, this patient had a high probability of imminent or life- threatening deterioration due to acute on chronic hypoxic hypercapnic respiratory failure, renal failure which required my direct attention, intervention, and personal management. This time is exclusive of time spent on procedures, which are documented separately if performed. Mental status has improved post intubation. Complicating factors include worsening renal function. Volume status is almost impossible to understand due to his massive body habitus and inability to perform effective POCUS exam. Given the chest x-ray demonstrates bilateral opacities, the most likely diagnosis is volume overload and pulmonary edema although net weight seems to come down with prior efforts at diuresing. We will attempt a Bumex diuresis and continue to monitor ventilation, chest x-rays and renal function. Ultimately a tracheostomy is likely to be the best option for reducing his risk of acute on chronic hypercapnic respiratory failure. With his neck size being so large and due to the abundance of adipose tissue, he may have the risk of obstruction to the tracheostomy tube, in which case chronic mechanical ventilation would be required. Documentation for date of: 03/11/25 Subjective Subjective Interval history: 64-year-old male with past medical history of DM2, hypertension, and A-fib was admitted to the ICU on 02/27/2025 after coming to the ED with complaints of altered mental status and shortness of breath. Patient was intubated in the ED therefore most of the history was taken from chart review and from the parents who are at bedside. Patient's parents stated that yesterday morning patient could not get up from his chair and then later that evening/night he started getting confused and was not making sense when he was seen. This morning EMS found the patient on the floor and he was saturating in the 70s even on high flow nasal cannula. Given his hypoxia patient was intubated in the ED. As per parents were at bedside they stated that prior to this patient was able to walk around, but that since yesterday morning he was unable to walk. On assessment patient was intubated, but was still able to answer yes or no questions. He was also able to follow commands. Patient spiked a fever while in the ED and he became hypotensive unresponsive to IV fluids therefore he was placed on vasopressors. 02/28/2025: Patient was seen examined at bedside this morning. Overnight patient did spike a fever of 100.4 and he had no measurable urine output. Patient placed on amio drip overnigth. He was also given Bumex 1 mg x 1 overnight to see if he had better urine output, but none was measured. Today's patient's chest x-ray this looks like it is improving and he did have wet pants and some urine in the pure wick catheter. Will start patient on Bumex drip at 1 mg and will monitor patient's daily weights. Patient was on very low-dose of Levophed therefore we will start patient on midodrine 10 mg every 6 hours and wean off Levophed entirely. Patient is nasogastric tube was not visualized had x-ray, but on auscultation air was audible in the stomach when hand was placed through the nasogastric tube. Will discontinue patient's vancomycin and Zosyn if his MRSA is negative and will transition to azithromycin and Rocephin. 03/01/2025: Patient seen and examined at bedside this morning. Overnight patient went into A-fib with RVR and he finishes bolus of amiodarone. Patient had a documented urine output of 150, but that she states 1 were very wet. His Bumex drip finished overnight and they were not able to start more Bumex drip as there was not available in the pharmacy overnight. Patient's weight did go down from 249 to 247 kg. Blood cultures have been negative in 48 hours and MRSA nares negative. Will discontinue vancomycin and Zosyn and will start azithromycin and Rocephin. Patient's ventilator requirements have been unchanged, but has been saturating in the 94% therefore we will try and wean down on oxygen requirements. His blood pressure has been stable off Levophed and only on midodrine. His kidney function has been worsening, but expect improvement with more diuresis. Started Amiodarone 200mg qday. 03/02/2025: No overnight events, todays weight 246, we will continue bumex drip. NIF today as -12, we will re-evaluate tomorrow to attempt extubation. Midodrine decreased to 5 q6hr 03/03/2025: Patient was seen examined at bedside this morning. No acute overnight events. Patient was taken off the Precedex yesterday night. Today's weight is 242 kg. Succesfull extubation today, will transition to bipap. 03/06/2025: Was notified by floors team that patient is tachypneic in the 40s with increased work of breathing, confusion, and agitation. He was AAOx 1 (name) and saying leave me alone. He continues to pull at his BIPAP and had to be restrained, with a sitter at bedside. His BIPAP settings were uptitrated from 10/5 to 16/6 without significant improvement of PCO2. Repeat ABG showed pH 7.37 with CO2 at 74. Floor team attempted to notify family with no answer. He remains confused and agitated. Patient to be intubated due to worsening respiratory effort. 03/06/2025: Patient was seen and examined at bedside this morning. He was sedated in the morning, but was weaned off. Patient was able to follow commands he understood and was able to at least answer yes and no questions. Patient was placed on spontaneous breathing trial, but his RSBI was in the 130s therefore patient was high risk to fail extubation at this time. Placed patient back on prior ventilator settings, will follow any sedation at this time as she is calm. Sedation will be placed if patient becomes agitated. Patient is diuresing well and his current weight today is 227 kilograms. Gave metolazone 10 mg x 1 today for additional diuresis and started tube feeds today. Will reattempt weaning parameters tomorrow for possible extubation. 03/07/2025: Patient seen and examined at bedside this morning. No overnight events. Patient's weight today was 226.4 kg. Patient's blood gas that showed a pH of 7.46, PCO2 of 53, and PO2 of 65 this most likely his baseline PCO2. Patient initially did not get his Bumex as it was discontinued the night prior, but today we will continue Bumex 1 mg twice daily. Chest x-ray that showed some more vascular congestion, but still on and physical exam was clear bilaterally. Patient passed spontaneous breathing trial and was extubated successfully today. At this time we will downgrade back to the medical floors. 03/10/2025: Patient was upgraded today at approximately 15:30 for intubation due to declining mentation on the BiPAP, despite remaining on BiPAP for majority of the last 24 hours. Patient was no longer able to answer questions and not following commands. Patient's decision-maker was contacted who consented for intubation. ABG in the morning had shown pH 7.31, pCO2 81, pO2 63, HCO3 41. Will start fentanyl and propofol. Will continue amiodarone PO dose through OG tube. If HR not rate controlled resume metoprolol XL as well. Will continue to hold the Bumex due to worsening KENIA and soft BPs. 03/11/2025: Patient seen and examined at bedside this morning. No acute overnight events. Patient is on sedation, will try and wean down sedation to assess his neurological status at this time. Patient's kidney function continue to worsen with creatinine going up to 2.2, but at this time chest x-ray showed a lot of congestion therefore we will restart Bumex 1 mg twice daily. ABG today shows some respiratory alkalosis with pH of 7.48, pCO2 of 54, and PO2 of 67. Patient has already been upgraded multiple times to the ICU requiring intubation during this hospital stay due to similar symptoms. Patient will most likely benefit from a tracheostomy at this point to overcome the anatomical issues causing him to become hypoxic and hypercapnic, will speak with patient's family and the patient himself once he is weaned off sedation.. Patient had no fevers and his WBCs are downtrending. Exam Vital Signs Temp Pulse Resp BP Pulse Ox O2 Del Method O2 Flow Rate 97.7 F 100 20 119/96 H 97 Mechanical Ventilation 5 03/11/25 07:00 03/11/25 10:52 03/11/25 09:00 03/11/25 10:52 03/11/25 10:52 03/11/25 04:00 03/10/25 11:46 FiO2 70 03/11/25 10:52 Narrative Exam General: Mechanically ventilated and sedated, morbidly obese Eyes: Pupils equally reactive. Ears: No visible ear discharge Nose: No nasal discharge. Mouth/Throat: Moist mucous membranes, no redness, no lesions. Neck: Short neck non-tender, no cervical lymphadenopathy. Lungs: Clear BANG in upper lobes and decreased in Lower lobes likely in the setting of body habitus. Cardio: Distant heart sounds likely due to body habitus, normal S1/S2, regular rhythm, no murmurs, no JVD Abdomen: Swollen lower abdomen improved from previous, no palpable masses, peristalsis present, no guarding or rebound. Extremities: Symmetrical, no significant deformities, 1+ peripheral edema , non- tender, peripheral pulses presents. Skin: No rashes, no lesions, warm to touch Neuro: Pupils reactive to light, sedated Objective Labs 03/11/25 04:40 03/11/25 04:40 Labs: Laboratory Results - last 24 hr 03/10/25 03/10/25 03/10/25 11:25 16:56 19:34 WBC 15.5 H D RBC 4.20 L Hgb 12.1 L Hct 39.3 L MCV 94 MCH 28.8 MCHC 30.8 L RDW Std Deviation 47.5 H Plt Count 391 D Neut % (Auto) 82 H Lymph % (Auto) 5 L [place] % (Auto) 11 Eos % (Auto) 0 Baso % (Auto) 1 Neut # (Auto) 12.8 H Lymph # (Auto) 0.8 L [place] # (Auto) 1.7 H Eos # (Auto) 0.1 Baso # (Auto) 0.1 Immature Gran # (Auto) 0.14 H Absolute Nucleated RBC 0.00 Immature Gran % 1 H Nucleated RBC % 0 Puncture Site Right Radial Right Brachial ABG pH 7.31 L 7.40 ABG pCO2 81 H* 66 H D ABG pO2 63 L 68 L ABG HCO3 41 H 41 H ABG O2 Saturation 93 94 ABG Base Excess 11 H 13 H FiO2 100 21 Sodium 150 H Potassium 4.1 Chloride 106 Carbon Dioxide 35.5 H Anion Gap 9 BUN 61 H Creatinine 2.0 H Estim Creat Clear Calc 67.2 eGFR 36 L BUN/Creatinine Ratio 31 H Glucose 236 H Calculated Osmolality 323 H Lactic Acid 1.9 Calcium 8.7 Corrected Calcium 9.5 Magnesium Total Bilirubin 0.5 AST 23 ALT 18 Alkaline Phosphatase 105 D Total Protein 5.4 L Albumin 3.0 L Globulin 2.4 Albumin/Globulin Ratio 1.3 03/11/25 03/11/25 04:19 04:40 WBC 13.9 H RBC 3.93 L Hgb 11.3 L Hct 35.9 L MCV 91 MCH 28.8 MCHC 31.5 RDW Std Deviation 46.5 H Plt Count 392 Neut % (Auto) 78 Lymph % (Auto) 7 L [place] % (Auto) 12 Eos % (Auto) 1 Baso % (Auto) 1 Neut # (Auto) 10.8 H Lymph # (Auto) 1.0 [place] # (Auto) 1.7 H Eos # (Auto) 0.1 Baso # (Auto) 0.1 Immature Gran # (Auto) 0.11 H Absolute Nucleated RBC 0.00 Immature Gran % 1 H Nucleated RBC % 0 Puncture Site Left Radial ABG pH 7.48 H ABG pCO2 54 H D ABG pO2 67 L ABG HCO3 40 H ABG O2 Saturation 94 ABG Base Excess 15 H FiO2 70 Sodium 151 H Potassium 3.6 D Chloride 106 Carbon Dioxide 37.9 H Anion Gap 7 BUN 69 H Creatinine 2.2 H Estim Creat Clear Calc 61.1 eGFR 32 L BUN/Creatinine Ratio 31 H Glucose 237 H Calculated Osmolality 327 H Lactic Acid Calcium 8.6 Corrected Calcium 9.5 Magnesium 1.8 Total Bilirubin 0.6 AST 24 ALT 17 Alkaline Phosphatase 97 Total Protein 5.2 L Albumin 2.9 L Globulin 2.3 Albumin/Globulin Ratio 1.3 ABG Interpretation ABG results: 02/27/25 02/28/25 03/01/25 06:55 04:57 04:39 ABG pH 7.27 L 7.37 D 7.41 ABG pCO2 57 H 48 44 ABG pO2 101 78 L D 69 L ABG HCO3 26 28 H 28 H ABG O2 Saturation 98 95 93 ABG Base Excess -2 2 3 VBG pH VBG pCO2 VBG pO2 VBG Base Excess 03/01/25 03/01/25 03/02/25 13:15 14:52 04:25 ABG pH Cancelled 7.41 7.45 ABG pCO2 Cancelled 45 42 ABG pO2 Cancelled 53 L* 66 L ABG HCO3 Cancelled 28 H 29 H ABG O2 Saturation Cancelled 85 L 92 ABG Base Excess Cancelled 3 5 H VBG pH VBG pCO2 VBG pO2 VBG Base Excess 03/03/25 03/05/25 03/05/25 04:40 16:30 16:55 ABG pH 7.45 Cancelled 7.34 L D ABG pCO2 43 Cancelled 72 H* D ABG pO2 72 L Cancelled 83 ABG HCO3 30 H Cancelled 38 H ABG O2 Saturation 94 Cancelled 95 ABG Base Excess 5 H Cancelled 9 H VBG pH VBG pCO2 VBG pO2 VBG Base Excess 03/05/25 03/06/25 03/06/25 23:36 01:48 05:22 ABG pH 7.37 7.34 L 7.52 H D ABG pCO2 67 H 74 H* 47 D ABG pO2 150 H D 88 D 160 H D ABG HCO3 38 H 40 H 38 H ABG O2 Saturation 99 H 96 100 H ABG Base Excess 10 H 11 H 13 H VBG pH VBG pCO2 VBG pO2 VBG Base Excess 03/06/25 03/07/25 03/07/25 17:10 05:00 14:03 ABG pH 7.46 H ABG pCO2 53 H ABG pO2 65 L D ABG HCO3 38 H ABG O2 Saturation 93 ABG Base Excess 12 H VBG pH 7.50 7.52 VBG pCO2 50 47 VBG pO2 70 H 61 H VBG Base Excess 13 H 14 H 03/09/25 03/09/25 03/09/25 08:17 10:25 17:29 ABG pH 7.25 L D 7.29 L 7.29 L ABG pCO2 93 H* D 85 H* 88 H* ABG pO2 81 L 57 L* D 85 D ABG HCO3 41 H 40 H 43 H ABG O2 Saturation 95 89 L 97 ABG Base Excess 10 H 10 H 12 H VBG pH VBG pCO2 VBG pO2 VBG Base Excess 03/09/25 03/10/25 03/10/25 23:24 07:17 11:25 ABG pH 7.32 L 7.28 L 7.31 L ABG pCO2 78 H* D 90 H* D 81 H* ABG pO2 69 L 47 L* D 63 L ABG HCO3 40 H 43 H 41 H ABG O2 Saturation 94 80 L 93 ABG Base Excess 11 H 12 H 11 H VBG pH VBG pCO2 VBG pO2 VBG Base Excess 03/10/25 03/11/25 16:56 04:19 ABG pH 7.40 7.48 H ABG pCO2 66 H D 54 H D ABG pO2 68 L 67 L ABG HCO3 41 H 40 H ABG O2 Saturation 94 94 ABG Base Excess 13 H 15 H VBG pH VBG pCO2 VBG pO2 VBG Base Excess Quality Measures Quality Measures sepsis Current suspected stage: ruled out Possible source: pulmonary Blood cultures ordered: completed in ED Antibiotic ordered: Yes Advance care planning discussed with:: patient Assessment & Plan Assessment Current Active Medications: Generic Name Dose Route Start Last Admin Trade Name Freq PRN Reason Stop Dose Admin Acetaminophen 650 mg 03/10/25 19:17 Acetaminophen 325 Mg Tablet PO 03/29/25 09:23 Q4HR PRN fever > 100.4 Al Hydrox/Mg Hydrox/Simethicone 30 ml 02/27/25 09:24 Mg Hyd/Al Hyd/Virgilio (Maalox Reg) Susp 30 Ml Udc PO 03/29/25 09:23 Q4HR PRN Heartburn or Upset Stomach Amiodarone HCl 200 mg 03/01/25 09:00 03/11/25 09:15 Amiodarone Hcl 200 Mg Tablet PO 03/31/25 08:59 200 mg QDAY KOURTNEY Administration Bumetanide 1 mg 03/07/25 09:00 03/08/25 20:16 Bumetanide Inj 0.25 Mg/Ml Vial 4 Ml IVP 04/06/25 08:59 1 mg BID KOURTNEY Administration Dextrose 25 ml 03/03/25 08:20 Dextrose 50%-Water Inj 50 Ml Syringe IV 04/02/25 08:19 Q15MIN PRN BG 50-70 responsive npo pt Dextrose 50 ml 03/03/25 08:20 Dextrose 50%-Water Inj 50 Ml Syringe IV 04/02/25 08:19 Q15MIN PRN BG <50 OR BG <70 & pt unresponsive Glucagon 1 mg 03/03/25 08:20 Glucagon Inj 1 Mg Vial IM Q15MIN PRN BG <70, and no IV access Fentanyl Citrate 2,500 mcg in 250 mls @ 2.5 mls/hr 03/10/25 15:56 03/11/25 06:00 Sublimaze Inj 2,500 Mcg/250 Ml Bag IV 03/15/25 15:55 125 mcg/hr .Q24H PRN 12.5 mls/hr PER PROTOCOL Titration Protocol 25 MCG/HR Propofol 1,000 mg in 100 mls @ 6.801 mls/hr 03/10/25 15:56 03/11/25 07:00 Diprivan Ivpb IV 04/09/25 15:55 15 mcg/kg/min .[id number] PRN 20.403 mls/hr PER PROTOCOL Administration Protocol 5 MCG/KG/MIN Cefepime HCl 1 gm/ Sodium 50 mls @ 100 mls/hr 03/10/25 19:15 03/10/25 19:48 Chloride IV 03/17/25 19:14 100 mls/hr Q24H KOURTNEY Administration Insulin Human Lispro 0 unit 03/06/25 06:00 03/11/25 05:41 Insulin Lispro (Admelog) 1 Unit/0.01 Ml Unit SC 04/05/25 05:59 2 unit Q6H KOURTNEY Administration Protocol Magnesium Hydroxide 30 ml 02/27/25 09:24 Milk Of Magnesia Susp 30 Ml Udc PO 03/29/25 09:23 QDAY PRN CONSTIPATION Metoprolol Succinate 100 mg 03/03/25 21:00 03/09/25 20:53 Metoprolol Succinate Xl 25 Mg Tabcr PO 04/02/25 20:59 Not Given BID KOURTNEY Metoprolol Tartrate 5 mg 03/09/25 22:00 03/10/25 14:30 Metoprolol Tartrate Inj 1 Mg/Ml Amp 5 Ml IVP 04/08/25 21:59 Not Given Q8HR KOURTNEY Ondansetron HCl 4 mg 03/05/25 20:46 03/09/25 03:49 Ondansetron Inj 2 Mg/Ml Inj 2 Ml IV 04/04/25 20:45 4 mg Q6HR PRN Administration NAUSEA OR VOMITING Protocol Pantoprazole Sodium 40 mg 02/27/25 11:15 03/11/25 09:15 Pantoprazole Inj 40 Mg Vial IV 03/29/25 11:14 40 mg QDAY KOURTNEY Administration Rivaroxaban 20 mg 03/04/25 17:30 03/10/25 21:03 Rivaroxaban 10 Mg Tablet PO 04/03/25 17:29 20 mg WSUPPER KOURTNEY Administration Plan 64-year-old male with past medical history of DM2, hypertension, and A-fib was admitted to the ICU on 02/27/2025 for shock and acute hypoxic respiratory failure. He was extubated on 03/03 and downgraded then re-intubated on 03/06 due to confusion and tachypneia. He was then extubated and downgraded to the floor on 03/07. On 03/10, patient again had decreased mentation on the BiPAP so was reintubated and upgraded. RN PLASMA CENTER: #Acute encephalopathy #Sedated Likely secondary to hypercapnia Will wean down sedation to assess neurological status CVS: #Right diastolic CHF Echo could not visualize all chambers and could not provide ejection fraction Will restart Bumex 1mg BID Patient today weight 223 kg. Daily weights Strict I&O measurement #Hx of A-fib [id number] score of 3 points indicating 3.2% risk of stroke per year Has bled score of 0 Continue PO amiodarone 200 mg qday Holding metoprolol succinate 100 mg twice daily for now Continue Xarelto 20 mg daily Echo could not visualize all chambers Respiratory: #Acute on chronic hypoxic and hypercapnic respiratory failure #Obesity hypoventilation syndrome and obstructive sleep apnea #Community-acquired pneumonia Patient was intubated on 02/27/2025, extubated 03/03/2025. Reintubated on 03/06/2025 and extubated 03/07/2025. Reintubated 03/10/2025 for hypercapnic encephalopathy ABG today showed pH 7.48, PO2 of 67, and pCO2 of 54 CXR today is unchanged Patient had completed Rocephin (03/06/2025) Sputum cultures pending Daily CXR and ABG Renal: #KENIA #Metabolic alkalosis Creatinine today 2.2, baseline is around 1 Alkalosis most likely due to compensation versus contraction alkalosis from diuresis Restart Bumex 1 mg twice daily Avoid nephrotoxic agent Renally dose medication GI: stable Endo: #Morbid obesity Patient has a BMI of 79.5 #DM2 A1C 7.6 on 03/05/2025 ISS Hypoglycemia protocol ordered Heme: #Leukocytosis Downtrending and no fevers ID: #Community-acquired pneumonia Finished Rocephin (03/06/2025) Patient spiked a fever and WBC uptrended initially, but no fevers or spike in WBC today Continue cefepime Hospital Maintenance: Diet: NPO DVT ppx: Xarelto GI ppx: protonix IV lines: PIV Fuller: No Code status: Full code Dispo: ICU for acute on chronic hypoxic and hypercapnic respiratory failure. Case disclosed with Attending Dr. Faraz Cornejo PGY1 Disclaimer: This note was dictated by speech recognition, therefore there may be minor errors in manager pet due to voice.
--- NOTE | 2025-03-11 14:47 | ESPR_ITS ---
<Statement entered by Lenora John MD - 03/13/25 18:09> I personally evaluated examined the patient intensive care and he is morbidly obese man with history of multiple problems has respiratory failure difficult to extubate him mostly hypercapnia and hypoxia secondary to hypoventilation morbid obesity. Cardiac rebollar he is stable atrial fibrillation rate controlled well evaluated the patient with resident physician intensive care unit Dr. Mahnaz Betts PGY2 and agree with the treatment plan recommendation as documented we will continue to monitor the patient's cardiac status Documentation for date of: 03/11/25 Subjective Subjective Interval history: Patient seen and examined in the ICU this afternoon. He is ventilated and sedated. This is the patient's 3rd intubation since admission, unfortunately has been unable to maintain mentation and airway despite BiPAP therapy while extubated. Tracheostomy is being considered. Bumex is held as patient at this time does not appear to be in fluid overload, creatinine has been increasing, suspect respiratory failure at this point is secondary to a pulmonary process rather than cardiac. Review of systems unable to be assessed due to patient mental status. Exam Vital Signs Temp Pulse Resp BP Pulse Ox O2 Del Method O2 Flow Rate 97.7 F 96 18 109/72 98 Mechanical Ventilation 5 03/11/25 07:00 03/11/25 14:29 03/11/25 13:00 03/11/25 14:29 03/11/25 14:29 03/11/25 04:00 03/10/25 11:46 FiO2 100 03/11/25 14:29 Narrative Exam Physical Exam General: Intubated and sedated. HEENT: Normocephalic, atraumatic, mucous membranes moist. ET tube in place. Heart: Regular rate and rhythm, normal S1 and S2, no murmurs. Lungs: Bilateral breath sounds heard, difficult to ascertain any pathologic sounds secondary to body habitus. Abdomen: Soft, nondistended, nontender, positive bowel sounds. ?No guarding or rebound tenderness. Neurologic: RASS -2. Unable to assess. Extremities: Bilateral lower extremity swelling difficult to assess whether due to obesity or edema, reduced from prior exam, nonpitting. Skin: Chronic stasis skin changes. Objective Labs 03/12/25 04:50 03/12/25 04:50 Labs: Laboratory Results - last 24 hr 03/10/25 03/10/25 03/11/25 16:56 19:34 04:19 WBC 15.5 H D RBC 4.20 L Hgb 12.1 L Hct 39.3 L MCV 94 MCH 28.8 MCHC 30.8 L RDW Std Deviation 47.5 H Plt Count 391 D Neut % (Auto) 82 H Lymph % (Auto) 5 L [place] % (Auto) 11 Eos % (Auto) 0 Baso % (Auto) 1 Neut # (Auto) 12.8 H Lymph # (Auto) 0.8 L [place] # (Auto) 1.7 H Eos # (Auto) 0.1 Baso # (Auto) 0.1 Immature Gran # (Auto) 0.14 H Absolute Nucleated RBC 0.00 Immature Gran % 1 H Nucleated RBC % 0 Puncture Site Right Brachial Left Radial ABG pH 7.40 7.48 H ABG pCO2 66 H D 54 H D ABG pO2 68 L 67 L ABG HCO3 41 H 40 H ABG O2 Saturation 94 94 ABG Base Excess 13 H 15 H FiO2 21 70 Sodium 150 H Potassium 4.1 Chloride 106 Carbon Dioxide 35.5 H Anion Gap 9 BUN 61 H Creatinine 2.0 H Estim Creat Clear Calc 67.2 eGFR 36 L BUN/Creatinine Ratio 31 H Glucose 236 H Calculated Osmolality 323 H Lactic Acid 1.9 Calcium 8.7 Corrected Calcium 9.5 Magnesium Total Bilirubin 0.5 AST 23 ALT 18 Alkaline Phosphatase 105 D Total Protein 5.4 L Albumin 3.0 L Globulin 2.4 Albumin/Globulin Ratio 1.3 03/11/25 04:40 WBC 13.9 H RBC 3.93 L Hgb 11.3 L Hct 35.9 L MCV 91 MCH 28.8 MCHC 31.5 RDW Std Deviation 46.5 H Plt Count 392 Neut % (Auto) 78 Lymph % (Auto) 7 L [place] % (Auto) 12 Eos % (Auto) 1 Baso % (Auto) 1 Neut # (Auto) 10.8 H Lymph # (Auto) 1.0 [place] # (Auto) 1.7 H Eos # (Auto) 0.1 Baso # (Auto) 0.1 Immature Gran # (Auto) 0.11 H Absolute Nucleated RBC 0.00 Immature Gran % 1 H Nucleated RBC % 0 Puncture Site ABG pH ABG pCO2 ABG pO2 ABG HCO3 ABG O2 Saturation ABG Base Excess FiO2 Sodium 151 H Potassium 3.6 D Chloride 106 Carbon Dioxide 37.9 H Anion Gap 7 BUN 69 H Creatinine 2.2 H Estim Creat Clear Calc 61.1 eGFR 32 L BUN/Creatinine Ratio 31 H Glucose 237 H Calculated Osmolality 327 H Lactic Acid Calcium 8.6 Corrected Calcium 9.5 Magnesium 1.8 Total Bilirubin 0.6 AST 24 ALT 17 Alkaline Phosphatase 97 Total Protein 5.2 L Albumin 2.9 L Globulin 2.3 Albumin/Globulin Ratio 1.3 ABG Interpretation ABG results: 02/27/25 02/28/25 03/01/25 06:55 04:57 04:39 ABG pH 7.27 L 7.37 D 7.41 ABG pCO2 57 H 48 44 ABG pO2 101 78 L D 69 L ABG HCO3 26 28 H 28 H ABG O2 Saturation 98 95 93 ABG Base Excess -2 2 3 VBG pH VBG pCO2 VBG pO2 VBG Base Excess 03/01/25 03/01/25 03/02/25 13:15 14:52 04:25 ABG pH Cancelled 7.41 7.45 ABG pCO2 Cancelled 45 42 ABG pO2 Cancelled 53 L* 66 L ABG HCO3 Cancelled 28 H 29 H ABG O2 Saturation Cancelled 85 L 92 ABG Base Excess Cancelled 3 5 H VBG pH VBG pCO2 VBG pO2 VBG Base Excess 03/03/25 03/05/25 03/05/25 04:40 16:30 16:55 ABG pH 7.45 Cancelled 7.34 L D ABG pCO2 43 Cancelled 72 H* D ABG pO2 72 L Cancelled 83 ABG HCO3 30 H Cancelled 38 H ABG O2 Saturation 94 Cancelled 95 ABG Base Excess 5 H Cancelled 9 H VBG pH VBG pCO2 VBG pO2 VBG Base Excess 03/05/25 03/06/25 03/06/25 23:36 01:48 05:22 ABG pH 7.37 7.34 L 7.52 H D ABG pCO2 67 H 74 H* 47 D ABG pO2 150 H D 88 D 160 H D ABG HCO3 38 H 40 H 38 H ABG O2 Saturation 99 H 96 100 H ABG Base Excess 10 H 11 H 13 H VBG pH VBG pCO2 VBG pO2 VBG Base Excess 03/06/25 03/07/25 03/07/25 17:10 05:00 14:03 ABG pH 7.46 H ABG pCO2 53 H ABG pO2 65 L D ABG HCO3 38 H ABG O2 Saturation 93 ABG Base Excess 12 H VBG pH 7.50 7.52 VBG pCO2 50 47 VBG pO2 70 H 61 H VBG Base Excess 13 H 14 H 03/09/25 03/09/25 03/09/25 08:17 10:25 17:29 ABG pH 7.25 L D 7.29 L 7.29 L ABG pCO2 93 H* D 85 H* 88 H* ABG pO2 81 L 57 L* D 85 D ABG HCO3 41 H 40 H 43 H ABG O2 Saturation 95 89 L 97 ABG Base Excess 10 H 10 H 12 H VBG pH VBG pCO2 VBG pO2 VBG Base Excess 03/09/25 03/10/25 03/10/25 23:24 07:17 11:25 ABG pH 7.32 L 7.28 L 7.31 L ABG pCO2 78 H* D 90 H* D 81 H* ABG pO2 69 L 47 L* D 63 L ABG HCO3 40 H 43 H 41 H ABG O2 Saturation 94 80 L 93 ABG Base Excess 11 H 12 H 11 H VBG pH VBG pCO2 VBG pO2 VBG Base Excess 03/10/25 03/11/25 16:56 04:19 ABG pH 7.40 7.48 H ABG pCO2 66 H D 54 H D ABG pO2 68 L 67 L ABG HCO3 41 H 40 H ABG O2 Saturation 94 94 ABG Base Excess 13 H 15 H VBG pH VBG pCO2 VBG pO2 VBG Base Excess Quality Measures Quality Measures sepsis Current suspected stage: ruled out Possible source: pulmonary Blood cultures ordered: completed in ED Antibiotic ordered: Yes Advance care planning discussed with:: patient Assessment & Plan Assessment Current Active Medications: Generic Name Dose Route Start Last Admin Trade Name Freq PRN Reason Stop Dose Admin Acetaminophen 650 mg 03/10/25 19:17 Acetaminophen 325 Mg Tablet PO 03/29/25 09:23 Q4HR PRN fever > 100.4 Al Hydrox/Mg Hydrox/Simethicone 30 ml 02/27/25 09:24 Mg Hyd/Al Hyd/Virgilio (Maalox Reg) Susp 30 Ml Udc PO 03/29/25 09:23 Q4HR PRN Heartburn or Upset Stomach Amiodarone HCl 200 mg 03/01/25 09:00 03/11/25 09:15 Amiodarone Hcl 200 Mg Tablet PO 03/31/25 08:59 200 mg QDAY KOURTNEY Administration Bumetanide 1 mg 03/07/25 09:00 03/08/25 20:16 Bumetanide Inj 0.25 Mg/Ml Vial 4 Ml IVP 04/06/25 08:59 1 mg BID KOURTNEY Administration Dextrose 25 ml 03/03/25 08:20 Dextrose 50%-Water Inj 50 Ml Syringe IV 04/02/25 08:19 Q15MIN PRN BG 50-70 responsive npo pt Dextrose 50 ml 03/03/25 08:20 Dextrose 50%-Water Inj 50 Ml Syringe IV 04/02/25 08:19 Q15MIN PRN BG <50 OR BG <70 & pt unresponsive Glucagon 1 mg 03/03/25 08:20 Glucagon Inj 1 Mg Vial IM Q15MIN PRN BG <70, and no IV access Fentanyl Citrate 2,500 mcg in 250 mls @ 2.5 mls/hr 03/10/25 15:56 03/11/25 06:00 Sublimaze Inj 2,500 Mcg/250 Ml Bag IV 03/15/25 15:55 125 mcg/hr .Q24H PRN 12.5 mls/hr PER PROTOCOL Titration Protocol 25 MCG/HR Propofol 1,000 mg in 100 mls @ 6.801 mls/hr 03/10/25 15:56 03/11/25 11:31 Diprivan Ivpb IV 04/09/25 15:55 15 mcg/kg/min .[id number] PRN 20.403 mls/hr PER PROTOCOL Administration Protocol 5 MCG/KG/MIN Cefepime HCl 1 gm/ Sodium 50 mls @ 100 mls/hr 03/10/25 19:15 03/10/25 19:48 Chloride IV 03/17/25 19:14 100 mls/hr Q24H KOURTNEY Administration Insulin Human Lispro 0 unit 03/06/25 06:00 03/11/25 11:28 Insulin Lispro (Admelog) 1 Unit/0.01 Ml Unit SC 04/05/25 05:59 1 unit Q6H KOURTNEY Administration Protocol Magnesium Hydroxide 30 ml 02/27/25 09:24 Milk Of Magnesia Susp 30 Ml Udc PO 03/29/25 09:23 QDAY PRN CONSTIPATION Metoprolol Succinate 100 mg 03/03/25 21:00 03/09/25 20:53 Metoprolol Succinate Xl 25 Mg Tabcr PO 04/02/25 20:59 Not Given BID KOURTNEY Metoprolol Tartrate 5 mg 03/09/25 22:00 03/10/25 14:30 Metoprolol Tartrate Inj 1 Mg/Ml Amp 5 Ml IVP 04/08/25 21:59 Not Given Q8HR KOURTNEY Ondansetron HCl 4 mg 03/05/25 20:46 03/09/25 03:49 Ondansetron Inj 2 Mg/Ml Inj 2 Ml IV 04/04/25 20:45 4 mg Q6HR PRN Administration NAUSEA OR VOMITING Protocol Pantoprazole Sodium 40 mg 02/27/25 11:15 03/11/25 09:15 Pantoprazole Inj 40 Mg Vial IV 03/29/25 11:14 40 mg QDAY KOURTNEY Administration Rivaroxaban 20 mg 03/04/25 17:30 03/10/25 21:03 Rivaroxaban 10 Mg Tablet PO 04/03/25 17:29 20 mg WSUPPER KOURTNEY Administration Plan 64-year-old male with significant past medical history of hypertension, diabetes mellitus, A-fib was admitted to the ICU on 02/27/2025 after coming in with altered mental status and shortness of breath, intubated for acute hypoxic respiratory failure and had suspected obesity hypoventilation syndrome/obstructive sleep apnea/pneumonia and acute kidney injury. He was extubated on 03/03 and downgraded then re-intubated on 03/06 due to confusion and tachypneia. He was then extubated and downgraded to the floor on 03/07. On 03/10, patient again had decreased mentation on the BiPAP so was reintubated and upgraded. Cardiology has been consulted for suspected heart failure. #Right congestive heart failure with preserved EF #Severe BASIA/OHS Echo on this admission showed poor quality images secondary to the patient's body habitus so was a technically limited study. Patient is comfortably laying flat without experiencing increased shortness of breath. He is requiring supplemental O2 at 5-6L. Suspect chronic right heart failure in the setting of chronic obesity hypoventilation syndrome and obstructive sleep apnea. There is diffuse anasarca, which was worse on admission. After receiving diuresis has been improving. -Hold diuresis with bumetanide 2 mg IV BID, due to contraction alkalosis -Continue with ventilatory support -Monitor strict I&Os -Limit sodium intake -Fluid restrictions #Atrial fibrillation, rate controlled Patient notes positive history of afib. He had previously been on metoprolol succinate 100 mg BID. Currently appears rate-controlled in the 100s. [id number] score 4 -Home metoprolol succinate 100 mg BID is held due to soft BP, and patient currently rate controlled, if continues to increase can resume -Continue with amiodarone 200 mg qday -Continue Xarelto 20 mg qday -Keep potassium >4.0 and mag >2.0 Rest of conditions to continue current management per primary team: #Acute hypoxic respiratory failure #Morbid obesity #Community acquired pneumonia #Elevated LFTs, resolved #Hyperbilirubinemia, resolved #History of type 2 diabetes #Lactic acidosis, resolved #KENIA on CKD Patient was discussed with the Cardiology attending, Dr. John. Thank you for allowing us to participate in the care of this patient. Evi Betts, PGY-2
[2025-03-11] MEDS: BUMETANIDE INJ 0.25 MG/ML VIAL 4 ML 1 MG IVP ×2 (16:40→21:27)
[2025-03-11] MEDS: RIVAROXABAN 10 MG TABLET 20 MG PO (16:41)
[2025-03-11] MEDS: PROPOFOL 1,000 MG IVPB 1,000 MG/100 ML VIAL 6.801 MG IV (19:00)
[2025-03-11] MEDS: CEFEPIME INJ 1 GM in SODIUM CHLORIDE 0.9% (Popper) 50 ML IV (21:28)
[2025-03-11] MEDS: fentaNYL 2,500 MCG/250 ML BAG 2,500 MCG/250 ML BAG 12.5 MCG IV (22:30)
[2025-03-12] VITALS (31 sets, daily range): BP systolic 102–154; BP diastolic 58–95; PULSE 83–107; RESP 18–20; TEMP 36.1–36.6; O2SAT 95–99; BMI 78.2
[2025-03-12] MEDS: PROPOFOL 1,000 MG IVPB 1,000 MG/100 ML VIAL 20.403 MG IV ×3 (01:14→06:27)
[2025-03-12 04:50] LABS: Base Excess 12 (-3-3); HCO3 39 mEq/L (20-26); Inspired Oxygen, FIO2 60 %; O2 Saturation 96 % (91-98); PCO2 59 mmHg (32.0-48.0); PO2 77 mmHg (83-108); pH, Arterial 7.43 (7.35-7.45)
[2025-03-12 04:58] LABS: Allen Test Performed/OK; Puncture Site Right Radial
[2025-03-12] MEDS: MIDAZOLAM INJ 1 MG/ML VIAL 2 ML 4 MG IV (05:12)
[2025-03-12] MEDS: INSULIN LISPRO (AdmeLOG) 1 UNIT/0.01 ML UNIT SC ×3 (05:12→17:42)
[2025-03-12 05:51] LABS: Basophils # (Auto) 0.1 Thou/mm3 (0.0-0.2); Basophils % (Auto) 1 % (0-2.5); Eosinophils # (Auto) 0.4 Thou/mm3 (0.0-0.5); Eosinophils % (Auto) 3 % (0-10); Hematocrit 41.6 % (41.0-53.0); Hemoglobin 12.9 g/dL (13.5-16.0); Immature Granulocytes % (Auto) 1 % (0-0); Immature Granulocytes Auto 0.12 Thou/mm3 (0.00-0.00); Lymphocytes # (Auto) 1.7 Thou/mm3 (1.0-4.8); Lymphocytes % (Auto) 12 % (10-50); Mean Corpuscular Hemoglobin 28.4 pg (25.0-35.0); Mean Corpuscular Volume 92 fL (80-100); Monocytes # (Auto) 1.7 Thou/mm3 (0.0-0.8); Monocytes % (Auto) 12 % (0-12); Neutrophils # (Auto) 10.7 Thou/mm3 (1.8-7.7); Neutrophils % (Auto) 73 % (37-80); Nucleated Red Blood Cell % 0 /100 WBC (0); Platelet Count 437 Thou/mm3 (140-440); RDW Standard Deviation 46.8 fL (35.1-43.9); Red Blood Count 4.54 Miln/mm3 (4.50-5.90); White Blood Count 14.7 Thou/mm3 (3.8-10.6)
--- NOTE | 2025-03-12 06:00 | XR_ITS ---
Examination: AP chest single view Technique one AP portable semiupright chest single view Exam date and time: March 12, 2025, 0521 hours Comparison March 11, 2025,. INDICATIONS: Acute hypoxic respiratory failure, pneumonia, postintubation FINDINGS: Extensive bilateral pneumonia and/or pulmonary edema Endotracheal tube tip 6 cm above Meggan Enlarged cardiac contour with prominent vascular congestion The film is not sufficiently penetrated to assess the orogastric tube IMPRESSION: Extensive bilateral pneumonia At least mild associated heart failure
--- NOTE | 2025-03-12 06:29 | PC.NURSE ---
patient desaturatingto low 80s, instructed patient to not bite on tube and educated. patient refusing to comply with request, MD hubbard at bedside, order for 4mg of versed. Bite block applied by RT Norman and RT Viviana. Patient oxygen saturation post interventions in the high 90s (see vitals) Late entry as event occurred at around 0430 hours. No obvious wounds or bleeding seen post intervention on patient's mouth. POC updated.
[2025-03-12 06:33] LABS: Alanine Aminotransferase 19 U/L (10-49); Albumin, Serum 3.4 gm/dL (3.4-4.8); Albumin/Globulin Ratio 1.3 (1.2-2.2); Alkaline Phosphatase 110 U/L (46-116); Anion Gap 10 (7-16); Aspartate Amino Transferase 35 U/L (0-34); BUN/Creatinine Ratio 30 Ratio (12-20); Bilirubin,Total 0.8 mg/dL (0.3-1.2); Blood Urea Nitrogen 72 mg/dL (9-23); Calcium 9.2 mg/dL (8.3-10.6); Calcium (Corrected) 9.7 mg/dL (8.5-10.1); Carbon Dioxide 33.8 mMol/L (20.0-31.0); Chloride 105 mMol/L (98-107); Creatinine (Component) 2.4 mg/dL (0.6-1.3); Estimated Creatinine Clearance 55.9 mL/min (>60); Globulin 2.7 gm/dL (2.3-3.5); Glucose 200 mg/dL (74-106); Magnesium 1.9 mg/dL (1.6-2.6); Osmolality,Calculated 323 (275-295); Potassium 4.4 mMol/L (3.4-5.1); Sodium 149 mMol/L (136-145); Total Protein 6.1 gm/dL (5.7-8.2); eGFR 29 See Note
[2025-03-12] MEDS: AMIODARONE HCL 200 MG TABLET PO (08:00)
[2025-03-12] MEDS: CEFEPIME INJ 1 GM in SODIUM CHLORIDE 0.9% (Popper) 50 ML IV ×2 (08:01→20:31)
[2025-03-12] MEDS: PANTOPRAZOLE INJ 40 MG VIAL IV (08:01)
[2025-03-12] MEDS: BUMETANIDE INJ 0.25 MG/ML VIAL 4 ML 1 MG IVP (08:01)
--- NOTE | 2025-03-12 10:29 | ESPR_ITS ---
<Statement entered by Apolonia Ruth MD - 03/13/25 11:10> TOTAL CC TIME: 45 MIN I saw and evaluated the patient. I reviewed the resident?s note and agree with findings and plan as documented in the resident?s note. Upon my evaluation, this patient had a high probability of imminent or life- threatening deterioration due to acute on chronic hypoxic hypercapnic respiratory failure, progressive renal failure which required my direct attention, intervention, and personal management. This time is exclusive of time spent on procedures, which are documented separately if performed. Persistent but improved encephalopathy likely multifactorial but primarily related to hypercapnia. Volume status is difficult to assess due to massive body habitus but given the progressive deterioration in renal function we have stopped diuresis and additional IV fluid was given today. We are also treating with cefepime for presumed pneumonia in light of new fever and infiltrates Consulted surgery for tracheostomy after getting consent from family Documentation for date of: 03/12/25 Subjective Subjective Interval history: 64-year-old male with past medical history of DM2, hypertension, and A-fib was admitted to the ICU on 02/27/2025 after coming to the ED with complaints of altered mental status and shortness of breath. Patient was intubated in the ED therefore most of the history was taken from chart review and from the parents who are at bedside. Patient's parents stated that yesterday morning patient could not get up from his chair and then later that evening/night he started getting confused and was not making sense when he was seen. This morning EMS found the patient on the floor and he was saturating in the 70s even on high flow nasal cannula. Given his hypoxia patient was intubated in the ED. As per parents were at bedside they stated that prior to this patient was able to walk around, but that since yesterday morning he was unable to walk. On assessment patient was intubated, but was still able to answer yes or no questions. He was also able to follow commands. Patient spiked a fever while in the ED and he became hypotensive unresponsive to IV fluids therefore he was placed on vasopressors. 02/28/2025: Patient was seen examined at bedside this morning. Overnight patient did spike a fever of 100.4 and he had no measurable urine output. Patient placed on amio drip overnigth. He was also given Bumex 1 mg x 1 overnight to see if he had better urine output, but none was measured. Today's patient's chest x-ray this looks like it is improving and he did have wet pants and some urine in the pure wick catheter. Will start patient on Bumex drip at 1 mg and will monitor patient's daily weights. Patient was on very low-dose of Levophed therefore we will start patient on midodrine 10 mg every 6 hours and wean off Levophed entirely. Patient is nasogastric tube was not visualized had x-ray, but on auscultation air was audible in the stomach when hand was placed through the nasogastric tube. Will discontinue patient's vancomycin and Zosyn if his MRSA is negative and will transition to azithromycin and Rocephin. 03/01/2025: Patient seen and examined at bedside this morning. Overnight patient went into A-fib with RVR and he finishes bolus of amiodarone. Patient had a documented urine output of 150, but that she states 1 were very wet. His Bumex drip finished overnight and they were not able to start more Bumex drip as there was not available in the pharmacy overnight. Patient's weight did go down from 249 to 247 kg. Blood cultures have been negative in 48 hours and MRSA nares negative. Will discontinue vancomycin and Zosyn and will start azithromycin and Rocephin. Patient's ventilator requirements have been unchanged, but has been saturating in the 94% therefore we will try and wean down on oxygen requirements. His blood pressure has been stable off Levophed and only on midodrine. His kidney function has been worsening, but expect improvement with more diuresis. Started Amiodarone 200mg qday. 03/02/2025: No overnight events, todays weight 246, we will continue bumex drip. NIF today as -12, we will re-evaluate tomorrow to attempt extubation. Midodrine decreased to 5 q6hr 03/03/2025: Patient was seen examined at bedside this morning. No acute overnight events. Patient was taken off the Precedex yesterday night. Today's weight is 242 kg. Succesfull extubation today, will transition to bipap. 03/06/2025: Was notified by floors team that patient is tachypneic in the 40s with increased work of breathing, confusion, and agitation. He was AAOx 1 (name) and saying leave me alone. He continues to pull at his BIPAP and had to be restrained, with a sitter at bedside. His BIPAP settings were uptitrated from 10/5 to 16/6 without significant improvement of PCO2. Repeat ABG showed pH 7.37 with CO2 at 74. Floor team attempted to notify family with no answer. He remains confused and agitated. Patient to be intubated due to worsening respiratory effort. 03/06/2025: Patient was seen and examined at bedside this morning. He was sedated in the morning, but was weaned off. Patient was able to follow commands he understood and was able to at least answer yes and no questions. Patient was placed on spontaneous breathing trial, but his RSBI was in the 130s therefore patient was high risk to fail extubation at this time. Placed patient back on prior ventilator settings, will follow any sedation at this time as she is calm. Sedation will be placed if patient becomes agitated. Patient is diuresing well and his current weight today is 227 kilograms. Gave metolazone 10 mg x 1 today for additional diuresis and started tube feeds today. Will reattempt weaning parameters tomorrow for possible extubation. 03/07/2025: Patient seen and examined at bedside this morning. No overnight events. Patient's weight today was 226.4 kg. Patient's blood gas that showed a pH of 7.46, PCO2 of 53, and PO2 of 65 this most likely his baseline PCO2. Patient initially did not get his Bumex as it was discontinued the night prior, but today we will continue Bumex 1 mg twice daily. Chest x-ray that showed some more vascular congestion, but still on and physical exam was clear bilaterally. Patient passed spontaneous breathing trial and was extubated successfully today. At this time we will downgrade back to the medical floors. 03/10/2025: Patient was upgraded today at approximately 15:30 for intubation due to declining mentation on the BiPAP, despite remaining on BiPAP for majority of the last 24 hours. Patient was no longer able to answer questions and not following commands. Patient's decision-maker was contacted who consented for intubation. ABG in the morning had shown pH 7.31, pCO2 81, pO2 63, HCO3 41. Will start fentanyl and propofol. Will continue amiodarone PO dose through OG tube. If HR not rate controlled resume metoprolol XL as well. Will continue to hold the Bumex due to worsening KENIA and soft BPs. 03/11/2025: Patient seen and examined at bedside this morning. No acute overnight events. Patient is on sedation, will try and wean down sedation to assess his neurological status at this time. Patient's kidney function continue to worsen with creatinine going up to 2.2, but at this time chest x-ray showed a lot of congestion therefore we will restart Bumex 1 mg twice daily. ABG today shows some respiratory alkalosis with pH of 7.48, pCO2 of 54, and PO2 of 67. Patient has already been upgraded multiple times to the ICU requiring intubation during this hospital stay due to similar symptoms. Patient will most likely benefit from a tracheostomy at this point to overcome the anatomical issues causing him to become hypoxic and hypercapnic, will speak with patient's family and the patient himself once he is weaned off sedation.. Patient had no fevers and his WBCs are downtrending. 03/12/2025: Patient was seen and examined at bedside this morning. Overnight patient was a little bit agitated and biting on the tube therefore he was given a push of Versed. This morning will wean down sedation to possibly assess patient's neurological status and discussed the possibility of needing a tracheostomy with him. Chest x-ray does look a little bit better with less congestion today. GNR were stained in Sputum cultures. Patient's current weight is 220 kg. Will stop diuretics as patient kidney function is continuing to worsen. Will start free water flushes and give him some IV fluids today. Will speak about possible tracheostomy once he wakes up. I ws notified by patient's parent's that the patient is jehova's witness therefore would not want any blood products. Exam Vital Signs Temp Pulse Resp BP Pulse Ox O2 Del Method O2 Flow Rate 96.9 F 100 18 102/75 97 Mechanical Ventilation 5 03/12/25 07:00 03/12/25 08:01 03/12/25 07:00 03/12/25 08:01 03/12/25 07:00 03/12/25 04:00 03/10/25 11:46 FiO2 60 03/12/25 05:52 Narrative Exam General: Mechanically ventilated and sedated, morbidly obese Eyes: Pupils equally reactive. Ears: No visible ear discharge Nose: No nasal discharge. Mouth/Throat: Moist mucous membranes, no redness, no lesions. Neck: Short neck non-tender, no cervical lymphadenopathy. Lungs: Clear BANG in upper lobes and decreased in Lower lobes likely in the setting of body habitus. Cardio: Distant heart sounds likely due to body habitus, normal S1/S2, regular rhythm, no murmurs, no JVD Abdomen: Swollen lower abdomen improving, no palpable masses, peristalsis present, no guarding or rebound. Extremities: Symmetrical, no significant deformities, 1+ peripheral edema , non- tender, peripheral pulses presents. Skin: No rashes, no lesions, warm to touch Neuro: Pupils reactive to light, sedated Objective Labs 03/12/25 04:50 03/12/25 04:50 Labs: Laboratory Results - last 24 hr 03/12/25 03/12/25 04:42 04:50 WBC 14.7 H RBC 4.54 Hgb 12.9 L Hct 41.6 MCV 92 MCH 28.4 MCHC 31.0 RDW Std Deviation 46.8 H Plt Count 437 D Neut % (Auto) 73 Lymph % (Auto) 12 Chaves % (Auto) 12 Eos % (Auto) 3 Baso % (Auto) 1 Neut # (Auto) 10.7 H Lymph # (Auto) 1.7 Chaves # (Auto) 1.7 H Eos # (Auto) 0.4 Baso # (Auto) 0.1 Immature Gran # (Auto) 0.12 H Absolute Nucleated RBC 0.00 Immature Gran % 1 H Nucleated RBC % 0 Puncture Site Right Radial ABG pH 7.43 ABG pCO2 59 H ABG pO2 77 L ABG HCO3 39 H ABG O2 Saturation 96 ABG Base Excess 12 H FiO2 60 Sodium 149 H Potassium 4.4 D Chloride 105 Carbon Dioxide 33.8 H Anion Gap 10 BUN 72 H Creatinine 2.4 H Estim Creat Clear Calc 55.9 L eGFR 29 L BUN/Creatinine Ratio 30 H Glucose 200 H Calculated Osmolality 323 H Calcium 9.2 Corrected Calcium 9.7 Magnesium 1.9 Total Bilirubin 0.8 AST 35 H ALT 19 Alkaline Phosphatase 110 Total Protein 6.1 Albumin 3.4 D Globulin 2.7 Albumin/Globulin Ratio 1.3 Procalcitonin Cancelled ABG Interpretation ABG results: 02/27/25 02/28/25 03/01/25 06:55 04:57 04:39 ABG pH 7.27 L 7.37 D 7.41 ABG pCO2 57 H 48 44 ABG pO2 101 78 L D 69 L ABG HCO3 26 28 H 28 H ABG O2 Saturation 98 95 93 ABG Base Excess -2 2 3 VBG pH VBG pCO2 VBG pO2 VBG Base Excess 03/01/25 03/01/25 03/02/25 13:15 14:52 04:25 ABG pH Cancelled 7.41 7.45 ABG pCO2 Cancelled 45 42 ABG pO2 Cancelled 53 L* 66 L ABG HCO3 Cancelled 28 H 29 H ABG O2 Saturation Cancelled 85 L 92 ABG Base Excess Cancelled 3 5 H VBG pH VBG pCO2 VBG pO2 VBG Base Excess 03/03/25 03/05/25 03/05/25 04:40 16:30 16:55 ABG pH 7.45 Cancelled 7.34 L D ABG pCO2 43 Cancelled 72 H* D ABG pO2 72 L Cancelled 83 ABG HCO3 30 H Cancelled 38 H ABG O2 Saturation 94 Cancelled 95 ABG Base Excess 5 H Cancelled 9 H VBG pH VBG pCO2 VBG pO2 VBG Base Excess 03/05/25 03/06/25 03/06/25 23:36 01:48 05:22 ABG pH 7.37 7.34 L 7.52 H D ABG pCO2 67 H 74 H* 47 D ABG pO2 150 H D 88 D 160 H D ABG HCO3 38 H 40 H 38 H ABG O2 Saturation 99 H 96 100 H ABG Base Excess 10 H 11 H 13 H VBG pH VBG pCO2 VBG pO2 VBG Base Excess 03/06/25 03/07/25 03/07/25 17:10 05:00 14:03 ABG pH 7.46 H ABG pCO2 53 H ABG pO2 65 L D ABG HCO3 38 H ABG O2 Saturation 93 ABG Base Excess 12 H VBG pH 7.50 7.52 VBG pCO2 50 47 VBG pO2 70 H 61 H VBG Base Excess 13 H 14 H 03/09/25 03/09/25 03/09/25 08:17 10:25 17:29 ABG pH 7.25 L D 7.29 L 7.29 L ABG pCO2 93 H* D 85 H* 88 H* ABG pO2 81 L 57 L* D 85 D ABG HCO3 41 H 40 H 43 H ABG O2 Saturation 95 89 L 97 ABG Base Excess 10 H 10 H 12 H VBG pH VBG pCO2 VBG pO2 VBG Base Excess 03/09/25 03/10/25 03/10/25 23:24 07:17 11:25 ABG pH 7.32 L 7.28 L 7.31 L ABG pCO2 78 H* D 90 H* D 81 H* ABG pO2 69 L 47 L* D 63 L ABG HCO3 40 H 43 H 41 H ABG O2 Saturation 94 80 L 93 ABG Base Excess 11 H 12 H 11 H VBG pH VBG pCO2 VBG pO2 VBG Base Excess 03/10/25 03/11/25 03/12/25 16:56 04:19 04:42 ABG pH 7.40 7.48 H 7.43 ABG pCO2 66 H D 54 H D 59 H ABG pO2 68 L 67 L 77 L ABG HCO3 41 H 40 H 39 H ABG O2 Saturation 94 94 96 ABG Base Excess 13 H 15 H 12 H VBG pH VBG pCO2 VBG pO2 VBG Base Excess Quality Measures Quality Measures sepsis Current suspected stage: ruled out Possible source: pulmonary Blood cultures ordered: completed in ED Antibiotic ordered: Yes Advance care planning discussed with:: patient Assessment & Plan Assessment Current Active Medications: Generic Name Dose Route Start Last Admin Trade Name Freq PRN Reason Stop Dose Admin Acetaminophen 650 mg 03/10/25 19:17 Acetaminophen 325 Mg Tablet PO 03/29/25 09:23 Q4HR PRN fever > 100.4 Al Hydrox/Mg Hydrox/Simethicone 30 ml 02/27/25 09:24 Mg Hyd/Al Hyd/Virgilio (Maalox Reg) Susp 30 Ml Udc PO 03/29/25 09:23 Q4HR PRN Heartburn or Upset Stomach Amiodarone HCl 200 mg 03/01/25 09:00 03/12/25 08:00 Amiodarone Hcl 200 Mg Tablet PO 03/31/25 08:59 200 mg QDAY KOURTNEY Administration Bumetanide 1 mg 03/11/25 15:20 03/12/25 08:01 Bumetanide Inj 0.25 Mg/Ml Vial 4 Ml IVP 04/10/25 15:19 1 mg BID KOURTNEY Administration Dextrose 25 ml 03/03/25 08:20 Dextrose 50%-Water Inj 50 Ml Syringe IV 04/02/25 08:19 Q15MIN PRN BG 50-70 responsive npo pt Dextrose 50 ml 03/03/25 08:20 Dextrose 50%-Water Inj 50 Ml Syringe IV 04/02/25 08:19 Q15MIN PRN BG <50 OR BG <70 & pt unresponsive Glucagon 1 mg 03/03/25 08:20 Glucagon Inj 1 Mg Vial IM Q15MIN PRN BG <70, and no IV access Fentanyl Citrate 2,500 mcg in 250 mls @ 2.5 mls/hr 03/10/25 15:56 03/12/25 09:00 Sublimaze Inj 2,500 Mcg/250 Ml Bag IV 03/15/25 15:55 75 mcg/hr .Q24H PRN 7.5 mls/hr PER PROTOCOL Titration Protocol 25 MCG/HR Propofol 1,000 mg in 100 mls @ 6.801 mls/hr 03/10/25 15:56 03/12/25 09:00 Diprivan Ivpb IV 04/09/25 15:55 5 mcg/kg/min .[id number] PRN 6.801 mls/hr PER PROTOCOL Titration Protocol 5 MCG/KG/MIN Cefepime HCl 1 gm/ Sodium 50 mls @ 100 mls/hr 03/11/25 21:00 03/12/25 08:01 Chloride IV 03/18/25 20:59 100 mls/hr Q12HR KOURTNEY Administration Insulin Human Lispro 0 unit 03/06/25 06:00 03/12/25 05:12 Insulin Lispro (Admelog) 1 Unit/0.01 Ml Unit SC 04/05/25 05:59 1 unit Q6H KOURTNEY Administration Protocol Magnesium Hydroxide 30 ml 02/27/25 09:24 Milk Of Magnesia Susp 30 Ml Udc PO 03/29/25 09:23 QDAY PRN CONSTIPATION Metoprolol Succinate 100 mg 03/03/25 21:00 03/09/25 20:53 Metoprolol Succinate Xl 25 Mg Tabcr PO 04/02/25 20:59 Not Given BID KOURTNEY Metoprolol Tartrate 5 mg 03/09/25 22:00 03/10/25 14:30 Metoprolol Tartrate Inj 1 Mg/Ml Amp 5 Ml IVP 04/08/25 21:59 Not Given Q8HR KOURTNEY Ondansetron HCl 4 mg 03/05/25 20:46 03/09/25 03:49 Ondansetron Inj 2 Mg/Ml Inj 2 Ml IV 04/04/25 20:45 4 mg Q6HR PRN Administration NAUSEA OR VOMITING Protocol Pantoprazole Sodium 40 mg 02/27/25 11:15 03/12/25 08:01 Pantoprazole Inj 40 Mg Vial IV 03/29/25 11:14 40 mg QDAY KOURTNEY Administration Rivaroxaban 20 mg 03/04/25 17:30 03/11/25 16:41 Rivaroxaban 10 Mg Tablet PO 04/03/25 17:29 20 mg WSUPPER KOURTNEY Administration Plan 64-year-old male with past medical history of DM2, hypertension, A-fib, and Jehova's witness was admitted to the ICU on 02/27/2025 for shock and acute hypoxic respiratory failure. He was extubated on 03/03 and downgraded then re- intubated on 03/06 due to confusion and tachypneia. He was then extubated and downgraded to the floor on 03/07. On 03/10, patient again had decreased mentation on the BiPAP so was reintubated and upgraded. 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 Daily weights Strict I&O measurement #Hx of A-fib [id number] score of 3 points indicating 3.2% risk of stroke per year Has bled score of 0 Continue PO amiodarone 200 mg qday Holding metoprolol succinate 100 mg twice daily for now Continue Xarelto 20 mg daily Echo could not visualize all chambers Respiratory: #Acute on chronic hypoxic and hypercapnic respiratory failure #Obesity hypoventilation syndrome and obstructive sleep apnea #Community-acquired pneumonia Patient was intubated on 02/27/2025, extubated 03/03/2025. Reintubated on 03/06/2025 and extubated 03/07/2025. Reintubated 03/10/2025 for hypercapnic encephalopathy ABG today showed pH 7.48, PO2 of 67, and pCO2 of 54 CXR today showed improvement in congestion Patient had completed Rocephin (03/06/2025) Sputum cultures grew GNR's preliminary Will continue with cefepime for now Renal: #KENIA #Metabolic alkalosis Creatinine today 2.4, baseline is around 1 Alkalosis most likely due to compensation versus contraction alkalosis from diuresis Stopped Bumex 1 mg twice daily Avoid nephrotoxic agent Renally dose medication GI: stable Endo: #Morbid obesity Patient has a BMI of 79.5 #DM2 A1C 7.6 on 03/05/2025 ISS Hypoglycemia protocol ordered Heme: #Leukocytosis Slight increase today to 14.7 from 13.9, but no fevers ID: #Community-acquired pneumonia Finished Rocephin (03/06/2025) WBC slightly went up to 14.7 from 13.9 yesterday, no fevers Patient grew GNR's on the sputum, but blood cultures have been negative in 24 hours Continue cefepime Hospital Maintenance: Diet: tube feeds DVT ppx: Xarelto GI ppx: protonix IV lines: PIV Fuller: pure wick Code status: Full code Dispo: ICU for acute on chronic hypoxic and hypercapnic respiratory failure. Case disclosed with Attending Dr. Faraz Cornejo PGY1 Disclaimer: This note was dictated by speech recognition, therefore there may be minor errors in window shade cloth sewer due to voice.
[2025-03-12] MEDS: RINGERS LACTATED 1000 ML 500 ML 999 ML IV (11:37)
[2025-03-12 13:01] LABS: Procalcitonin 0.66 ng/ml (0.0-0.49)
[2025-03-12] MEDS: DEXMEDETOMIDINE 400 MCG IVPB 400 MCG/100 ML BAG 11.305 MCG IV ×2 (14:27→22:14)
--- NOTE | 2025-03-12 16:42 | PC.SS ---
Update: Patient remains intubated. Weaning down sedation. Patient received chest X-Ray today. Patient receiving IV fluids. OG tube in place for feedings.
--- NOTE | 2025-03-12 19:39 | PD.SURCONS ---
HPI Consult details Consult date: 03/12/25 Reason for consultation narrative: Respiratory failure requiring tracheostomy History of present illness: 64-year-old morbidly obese male with history of hypertension, diabetes, atrial fibrillation on Xarelto was admitted with altered mental status and shortness of breath. Patient had respiratory failure requiring intubation. He has remained dependent on the ventilator since admission. In anticipation for prolonged need for ventilator support, patient will require tracheostomy. Review of Systems Review of Systems ROS Unobtainable: unobtainable due to endotracheal tube Meds Home Medications and Allergies Home Medications ?Medication ?Instructions ?Recorded ?Confirmed ?Type amlodipine 10 mg tablet 10 mg PO 1XD 02/27/25 02/27/25 History gabapentin 600 mg tablet 600 mg PO 3XD 02/27/25 02/27/25 History glipizide 10 mg tablet 10 mg PO 1XD 02/27/25 02/27/25 History losartan 25 mg tablet 25 mg PO 1XD 02/27/25 02/27/25 History metformin 1,000 mg tablet 1,000 mg PO 2XD 02/27/25 02/27/25 History metoprolol succinate 100 mg 100 mg PO 2XD 02/27/25 02/27/25 History tablet,extended release 24 hr tramadol 50 mg tablet 50 mg PO 3XD 02/27/25 02/27/25 History Allergies Allergy/AdvReac Type Severity Reaction Status Date / Time No Known Allergies Allergy Verified 02/27/25 06:45 Exam Vital Signs Temp Pulse Resp BP Pulse Ox O2 Del Method O2 Flow Rate 97.6 F 106 H 20 105/71 97 Mechanical Ventilation 5 03/12/25 16:00 03/12/25 18:33 03/12/25 18:00 03/12/25 18:33 03/12/25 18:33 03/12/25 04:00 03/10/25 11:46 FiO2 80 03/12/25 18:33 Constitutional Constitutional: no acute distress Comments: Intubated and sedated Routine Neck Exam Comments: Neck is short, supple with midline trachea Assessment & Plan Problem List (1) Respiratory failure: Status: Acute Plan Hold Xarelto. Plan for tracheostomy on or Tuesday. Risks include but not limited to infection, bleeding, injury to surround neurovascular structures, tracheoinnominate fistula, need for further procedure and or operation discussed with patient's parents. Benefits and alternatives explained to them, all their questions answered, they agreed and consented to proceed with the operation.
--- NOTE | 2025-03-12 21:43 | ESPR_ITS ---
<Statement entered by Lenora John MD - 03/13/25 18:13> I personally evaluated examined the patient in the ICU again patient hypoxic respiratory failure hypercapnia unable to be extubated on ventilator support remains in A-fib rate controlled well evaluate the patient present physician PGY 2 Dr. Mahnaz Betts agree with the treatment plan recommendation as documented. Documentation for date of: 03/12/25 Subjective Subjective Interval history: No acute events overnight.?Patient seen and examined at bedside this afternoon in ICU. He is on a minimal amount of Precedex sedation, able to be woken and make eye contact, able to follow commands. He remains on 60% FiO2. Tracheostomy is being planned. Labs and vitals were reviewed. Labs showed persistent mild leukocytosis 14.7, sodium 149, potassium 4.4, BUN 72, creatinine 2.4. ET sputum culture growing GNRs. CXRs did not show major changes, bilateral infiltrate is present.?HR remains rate controlled in the 90s. BP maintaining MAP 65. Will continue to hold the Bumex due to worsening creatinine. Review of systems otherwise unable to be obtained due to ventilatory status. Exam Vital Signs Temp Pulse Resp BP Pulse Ox O2 Del Method O2 Flow Rate 97.6 F 97 18 112/81 96 Mechanical Ventilation 5 03/12/25 20:00 03/12/25 21:00 03/12/25 21:00 03/12/25 21:00 03/12/25 21:00 03/12/25 21:00 03/10/25 11:46 FiO2 60 03/12/25 21:00 Narrative Exam Physical Exam General: Intubated and sedated. HEENT: Normocephalic, atraumatic, mucous membranes moist. ET tube in place. Heart: Regular rate and rhythm, normal S1 and S2, no murmurs. Lungs: Bilateral breath sounds heard, difficult to ascertain any pathologic sounds secondary to body habitus. Abdomen: Soft, nondistended, nontender, positive bowel sounds. ?No guarding or rebound tenderness. Neurologic: RASS 0. Patient able to be awakened and follows commands. Extremities: Bilateral lower extremity swelling difficult to assess whether due to obesity or edema, reduced from prior exam, nonpitting. Skin: Chronic stasis skin changes. Objective Labs 03/12/25 04:50 03/12/25 04:50 Labs: Laboratory Results - last 24 hr 03/12/25 03/12/25 03/12/25 04:42 04:50 12:02 WBC 14.7 H RBC 4.54 Hgb 12.9 L Hct 41.6 MCV 92 MCH 28.4 MCHC 31.0 RDW Std Deviation 46.8 H Plt Count 437 D Neut % (Auto) 73 Lymph % (Auto) 12 Crane % (Auto) 12 Eos % (Auto) 3 Baso % (Auto) 1 Neut # (Auto) 10.7 H Lymph # (Auto) 1.7 Crane # (Auto) 1.7 H Eos # (Auto) 0.4 Baso # (Auto) 0.1 Immature Gran # (Auto) 0.12 H Absolute Nucleated RBC 0.00 Immature Gran % 1 H Nucleated RBC % 0 Puncture Site Right Radial ABG pH 7.43 ABG pCO2 59 H ABG pO2 77 L ABG HCO3 39 H ABG O2 Saturation 96 ABG Base Excess 12 H FiO2 60 Sodium 149 H Potassium 4.4 D Chloride 105 Carbon Dioxide 33.8 H Anion Gap 10 BUN 72 H Creatinine 2.4 H Estim Creat Clear Calc 55.9 L eGFR 29 L BUN/Creatinine Ratio 30 H Glucose 200 H Calculated Osmolality 323 H Calcium 9.2 Corrected Calcium 9.7 Magnesium 1.9 Total Bilirubin 0.8 AST 35 H ALT 19 Alkaline Phosphatase 110 Total Protein 6.1 Albumin 3.4 D Globulin 2.7 Albumin/Globulin Ratio 1.3 Procalcitonin Cancelled 0.66 H ABG Interpretation ABG results: 02/27/25 02/28/25 03/01/25 06:55 04:57 04:39 ABG pH 7.27 L 7.37 D 7.41 ABG pCO2 57 H 48 44 ABG pO2 101 78 L D 69 L ABG HCO3 26 28 H 28 H ABG O2 Saturation 98 95 93 ABG Base Excess -2 2 3 VBG pH VBG pCO2 VBG pO2 VBG Base Excess 03/01/25 03/01/25 03/02/25 13:15 14:52 04:25 ABG pH Cancelled 7.41 7.45 ABG pCO2 Cancelled 45 42 ABG pO2 Cancelled 53 L* 66 L ABG HCO3 Cancelled 28 H 29 H ABG O2 Saturation Cancelled 85 L 92 ABG Base Excess Cancelled 3 5 H VBG pH VBG pCO2 VBG pO2 VBG Base Excess 03/03/25 03/05/25 03/05/25 04:40 16:30 16:55 ABG pH 7.45 Cancelled 7.34 L D ABG pCO2 43 Cancelled 72 H* D ABG pO2 72 L Cancelled 83 ABG HCO3 30 H Cancelled 38 H ABG O2 Saturation 94 Cancelled 95 ABG Base Excess 5 H Cancelled 9 H VBG pH VBG pCO2 VBG pO2 VBG Base Excess 03/05/25 03/06/25 03/06/25 23:36 01:48 05:22 ABG pH 7.37 7.34 L 7.52 H D ABG pCO2 67 H 74 H* 47 D ABG pO2 150 H D 88 D 160 H D ABG HCO3 38 H 40 H 38 H ABG O2 Saturation 99 H 96 100 H ABG Base Excess 10 H 11 H 13 H VBG pH VBG pCO2 VBG pO2 VBG Base Excess 03/06/25 03/07/25 03/07/25 17:10 05:00 14:03 ABG pH 7.46 H ABG pCO2 53 H ABG pO2 65 L D ABG HCO3 38 H ABG O2 Saturation 93 ABG Base Excess 12 H VBG pH 7.50 7.52 VBG pCO2 50 47 VBG pO2 70 H 61 H VBG Base Excess 13 H 14 H 03/09/25 03/09/25 03/09/25 08:17 10:25 17:29 ABG pH 7.25 L D 7.29 L 7.29 L ABG pCO2 93 H* D 85 H* 88 H* ABG pO2 81 L 57 L* D 85 D ABG HCO3 41 H 40 H 43 H ABG O2 Saturation 95 89 L 97 ABG Base Excess 10 H 10 H 12 H VBG pH VBG pCO2 VBG pO2 VBG Base Excess 03/09/25 03/10/25 03/10/25 23:24 07:17 11:25 ABG pH 7.32 L 7.28 L 7.31 L ABG pCO2 78 H* D 90 H* D 81 H* ABG pO2 69 L 47 L* D 63 L ABG HCO3 40 H 43 H 41 H ABG O2 Saturation 94 80 L 93 ABG Base Excess 11 H 12 H 11 H VBG pH VBG pCO2 VBG pO2 VBG Base Excess 04/03/11/25 03/12/25 16:56 04:19 04:42 ABG pH 7.40 7.48 H 7.43 ABG pCO2 66 H D 54 H D 59 H ABG pO2 68 L 67 L 77 L ABG HCO3 41 H 40 H 39 H ABG O2 Saturation 94 94 96 ABG Base Excess 13 H 15 H 12 H VBG pH VBG pCO2 VBG pO2 VBG Base Excess Quality Measures Quality Measures sepsis Current suspected stage: sepsis Possible source: pulmonary Blood cultures ordered: completed in ED Antibiotic ordered: Yes Advance care planning discussed with:: patient Assessment & Plan Assessment Current Active Medications: Generic Name Dose Route Start Last Admin Trade Name Freq PRN Reason Stop Dose Admin Acetaminophen 650 mg 03/10/25 19:17 Acetaminophen 325 Mg Tablet PO 03/29/25 09:23 Q4HR PRN fever > 100.4 Al Hydrox/Mg Hydrox/Simethicone 30 ml 02/27/25 09:24 Mg Hyd/Al Hyd/Virgilio (Maalox Reg) Susp 30 Ml Udc PO 03/29/25 09:23 Q4HR PRN Heartburn or Upset Stomach Amiodarone HCl 200 mg 03/01/25 09:00 03/12/25 08:00 Amiodarone Hcl 200 Mg Tablet PO 03/31/25 08:59 200 mg QDAY KOURTNEY Administration Dextrose 25 ml 03/03/25 08:20 Dextrose 50%-Water Inj 50 Ml Syringe IV 04/02/25 08:19 Q15MIN PRN BG 50-70 responsive npo pt Dextrose 50 ml 03/03/25 08:20 Dextrose 50%-Water Inj 50 Ml Syringe IV 04/02/25 08:19 Q15MIN PRN BG <50 OR BG <70 & pt unresponsive Glucagon 1 mg 03/03/25 08:20 Glucagon Inj 1 Mg Vial IM Q15MIN PRN BG <70, and no IV access Cefepime HCl 1 gm/ Sodium 50 mls @ 100 mls/hr 03/11/25 21:00 03/12/25 21:38 Chloride IV 03/18/25 20:59 Infused Q12HR KOURTNEY Infusion Fentanyl Citrate 2,500 mcg in 250 mls @ 2.5 mls/hr 03/12/25 13:17 Sublimaze Inj 2,500 Mcg/250 Ml Bag IV 03/15/25 15:55 .Q24H PRN PER PROTOCOL Protocol 25 MCG/HR Propofol 1,000 mg in 100 mls @ 6.801 mls/hr 03/12/25 13:18 Diprivan Ivpb IV 04/09/25 15:55 .[id number] PRN PER PROTOCOL Protocol 5 MCG/KG/MIN Dexmedetomidine/Sodium Chloride 400 mcg in 100 mls @ 11.305 mls/hr 03/12/25 14:03 03/12/25 21:00 Precedex Ivpb IV 04/11/25 14:02 0.2 mcg/kg/hr .[id number] PRN 11.305 mls/hr Per PROTOCOL Titration Protocol 0.2 MCG/KG/HR Insulin Human Lispro 0 unit 03/06/25 06:00 03/12/25 17:42 Insulin Lispro (Admelog) 1 Unit/0.01 Ml Unit SC 04/05/25 05:59 1 unit Q6H KOURTNEY Administration Protocol Magnesium Hydroxide 30 ml 02/27/25 09:24 Milk Of Magnesia Susp 30 Ml Udc PO 03/29/25 09:23 QDAY PRN CONSTIPATION Metoprolol Succinate 100 mg 03/03/25 21:00 03/09/25 20:53 Metoprolol Succinate Xl 25 Mg Tabcr PO 04/02/25 20:59 Not Given BID KOURTNEY Metoprolol Tartrate 5 mg 03/09/25 22:00 03/10/25 14:30 Metoprolol Tartrate Inj 1 Mg/Ml Amp 5 Ml IVP 04/08/25 21:59 Not Given Q8HR KOURTNEY Ondansetron HCl 4 mg 03/05/25 20:46 03/09/25 03:49 Ondansetron Inj 2 Mg/Ml Inj 2 Ml IV 04/04/25 20:45 4 mg Q6HR PRN Administration NAUSEA OR VOMITING Protocol Pantoprazole Sodium 40 mg 02/27/25 11:15 03/12/25 08:01 Pantoprazole Inj 40 Mg Vial IV 03/29/25 11:14 40 mg QDAY KOURTNEY Administration Rivaroxaban 20 mg 03/04/25 17:30 03/12/25 13:27 Rivaroxaban 10 Mg Tablet PO 04/03/25 17:29 Not Given WSUPPER KOURTNEY Plan 64-year-old male with significant past medical history of hypertension, diabetes mellitus, A-fib was admitted to the ICU on 02/27/2025 after coming in with altered mental status and shortness of breath, intubated for acute hypoxic respiratory failure and had suspected obesity hypoventilation syndrome/obstructive sleep apnea/pneumonia and acute kidney injury. He was extubated on 03/03 and downgraded then re-intubated on 03/06 due to confusion and tachypneia. He was then extubated and downgraded to the floor on 03/07. On 03/10, patient again had decreased mentation on the BiPAP so was reintubated and upgraded. Cardiology has been consulted for suspected heart failure. #Right congestive heart failure with preserved EF #Severe BASIA/OHS Echo on this admission showed poor quality images secondary to the patient's body habitus so was a technically limited study. Suspect chronic right heart failure in the setting of chronic obesity hypoventilation syndrome and obstructive sleep apnea. Currently appears to be more pulmonary component to respiratory failure than cardiac. Requiring ventilation support. -Hold diuresis with bumetanide 2 mg IV BID, due to worsening creatinine and contraction alkalosis -Continue with ventilatory support -Monitor strict I&Os -Limit sodium intake -Fluid restrictions #Atrial fibrillation, rate controlled Patient notes positive history of afib. He had previously been on metoprolol succinate 100 mg BID. Currently appears rate-controlled in the 100s. [id number] score 4 -Home metoprolol succinate 100 mg BID is held due to soft BP, and patient currently rate controlled, if continues to increase can resume -Continue with amiodarone 200 mg qday -Continue Xarelto 20 mg qday -Keep potassium >4.0 and mag >2.0 Rest of conditions to continue current management per primary team: #Acute hypoxic respiratory failure #Morbid obesity #Community acquired pneumonia #Elevated LFTs, resolved #Hyperbilirubinemia, resolved #History of type 2 diabetes #Lactic acidosis, resolved #KENIA on CKD Patient was discussed with the Cardiology attending, Dr. John. Thank you for allowing us to participate in the care of this patient. Evi Betts, PGY-2
[2025-03-13] VITALS (30 sets, daily range): BP systolic 97–129; BP diastolic 63–99; PULSE 73–97; RESP 12–30; TEMP 36.2–37.1; O2SAT 91–98; BMI 78.1
[2025-03-13] MEDS: INSULIN LISPRO (AdmeLOG) 1 UNIT/0.01 ML UNIT SC ×5 (00:55→23:54)
[2025-03-13 04:53] LABS: Base Excess 13 (-3-3); HCO3 38 mEq/L (20-26); Inspired Oxygen, FIO2 55 %; O2 Saturation 93 % (91-98); PCO2 53 mmHg (32.0-48.0); PO2 60 mmHg (83-108); pH, Arterial 7.47 (7.35-7.45)
[2025-03-13 04:56] LABS: Allen Test Performed/OK; Puncture Site Left Radial
[2025-03-13 05:58] LABS: Basophils # (Auto) 0.1 Thou/mm3 (0.0-0.2); Basophils % (Auto) 1 % (0-2.5); Eosinophils # (Auto) 0.3 Thou/mm3 (0.0-0.5); Eosinophils % (Auto) 3 % (0-10); Hematocrit 38.3 % (41.0-53.0); Hemoglobin 12.1 g/dL (13.5-16.0); Immature Granulocytes % (Auto) 1 % (0-0); Immature Granulocytes Auto 0.09 Thou/mm3 (0.00-0.00); Lymphocytes # (Auto) 0.8 Thou/mm3 (1.0-4.8); Lymphocytes % (Auto) 8 % (10-50); Mean Corpuscular HGB Conc 31.6 g/dl (31.0-37.0); Mean Corpuscular Hemoglobin 28.6 pg (25.0-35.0); Mean Corpuscular Volume 91 fL (80-100); Monocytes # (Auto) 0.9 Thou/mm3 (0.0-0.8); Monocytes % (Auto) 9 % (0-12); Neutrophils # (Auto) 8.2 Thou/mm3 (1.8-7.7); Neutrophils % (Auto) 80 % (37-80); Nucleated Red Blood Cell % 0 /100 WBC (0); Platelet Count 390 Thou/mm3 (140-440); RDW Standard Deviation 46.6 fL (35.1-43.9); Red Blood Count 4.23 Miln/mm3 (4.50-5.90); White Blood Count 10.3 Thou/mm3 (3.8-10.6)
--- NOTE | 2025-03-13 06:00 | XR_ITS ---
Examination: AP chest single view Technique one AP portable semiupright chest single view Examination type: March 13, 2025 0419 hours Comparison March 12, 2025 INDICATIONS: Acute hypoxic respiratory failure, postintubation, pneumonia or heart failure on earlier imaging FINDINGS: Moderate enlargement cardiac contour Prominent central vascular congestion Bilateral lung opacity especially at the lung bases with pleural fluid Endotracheal tube tip 3.8 cm above Meggan The lower portion of the orogastric tube is very poorly visualized IMPRESSION: Extensive bilateral primarily bibasilar pneumonia Mild associated heart failure Abdomen film follow-up would best assess position of orogastric tube Endotracheal tube tip 3.8 cm above Meggan
[2025-03-13 06:29] LABS: Alanine Aminotransferase 16 U/L (10-49); Albumin, Serum 2.9 gm/dL (3.4-4.8); Albumin/Globulin Ratio 1.1 (1.2-2.2); Alkaline Phosphatase 97 U/L (46-116); Anion Gap 11 (7-16); Aspartate Amino Transferase 27 U/L (0-34); BUN/Creatinine Ratio 30 Ratio (12-20); Bilirubin,Total 0.8 mg/dL (0.3-1.2); Blood Urea Nitrogen 75 mg/dL (9-23); Calcium 8.7 mg/dL (8.3-10.6); Calcium (Corrected) 9.6 mg/dL (8.5-10.1); Carbon Dioxide 35.3 mMol/L (20.0-31.0); Chloride 106 mMol/L (98-107); Creatinine (Component) 2.5 mg/dL (0.6-1.3); Estimated Creatinine Clearance 53.6 mL/min (>60); Globulin 2.6 gm/dL (2.3-3.5); Glucose 178 mg/dL (74-106); Magnesium 1.9 mg/dL (1.6-2.6); Osmolality,Calculated 327 (275-295); Potassium 3.2 mMol/L (3.4-5.1); Sodium 152 mMol/L (136-145); Total Protein 5.5 gm/dL (5.7-8.2); eGFR 28 See Note
[2025-03-13] MEDS: DEXMEDETOMIDINE 400 MCG IVPB 400 MCG/100 ML BAG 11.305 MCG IV (06:31)
[2025-03-13] MEDS: AMIODARONE HCL 200 MG TABLET PO (09:38)
[2025-03-13] MEDS: POTASSIUM CHLORIDE 10% 20 MEQ/15 ML UDC 40 MEQ GT (09:38)
[2025-03-13] MEDS: PANTOPRAZOLE INJ 40 MG VIAL IV (09:39)
[2025-03-13] MEDS: CEFEPIME INJ 1 GM in SODIUM CHLORIDE 0.9% (Popper) 50 ML IV ×2 (09:42→21:14)
--- NOTE | 2025-03-13 10:19 | ESPR_ITS ---
<Statement entered by Apolonia Ruth MD - 03/14/25 10:53> TOTAL TIME: 45MINUTES ON DIRECT MEDICAL CARE, MANAGEMENT - COORDINATION AND COUNSELING > 50% OF TOTAL TIME I saw and evaluated the patient. I reviewed the resident?s note and agree with findings and plan as documented in the resident?s note. Fevers resolved. Continue cefepime for Enterobacter pneumonia. IV fluids as needed monitor renal function continue to hold diuresis Plan for tracheostomy tomorrow Tolerating tube feeds Documentation for date of: 03/13/25 Subjective Subjective Interval history: 64-year-old male with past medical history of DM2, hypertension, and A-fib was admitted to the ICU on 02/27/2025 after coming to the ED with complaints of altered mental status and shortness of breath. Patient was intubated in the ED therefore most of the history was taken from chart review and from the parents who are at bedside. Patient's parents stated that yesterday morning patient could not get up from his chair and then later that evening/night he started getting confused and was not making sense when he was seen. This morning EMS found the patient on the floor and he was saturating in the 70s even on high flow nasal cannula. Given his hypoxia patient was intubated in the ED. As per parents were at bedside they stated that prior to this patient was able to walk around, but that since yesterday morning he was unable to walk. On assessment patient was intubated, but was still able to answer yes or no questions. He was also able to follow commands. Patient spiked a fever while in the ED and he became hypotensive unresponsive to IV fluids therefore he was placed on vasopressors. 02/28/2025: Patient was seen examined at bedside this morning. Overnight patient did spike a fever of 100.4 and he had no measurable urine output. Patient placed on amio drip overnigth. He was also given Bumex 1 mg x 1 overnight to see if he had better urine output, but none was measured. Today's patient's chest x-ray this looks like it is improving and he did have wet pants and some urine in the pure wick catheter. Will start patient on Bumex drip at 1 mg and will monitor patient's daily weights. Patient was on very low-dose of Levophed therefore we will start patient on midodrine 10 mg every 6 hours and wean off Levophed entirely. Patient is nasogastric tube was not visualized had x-ray, but on auscultation air was audible in the stomach when hand was placed through the nasogastric tube. Will discontinue patient's vancomycin and Zosyn if his MRSA is negative and will transition to azithromycin and Rocephin. 03/01/2025: Patient seen and examined at bedside this morning. Overnight patient went into A-fib with RVR and he finishes bolus of amiodarone. Patient had a documented urine output of 150, but that she states 1 were very wet. His Bumex drip finished overnight and they were not able to start more Bumex drip as there was not available in the pharmacy overnight. Patient's weight did go down from 249 to 247 kg. Blood cultures have been negative in 48 hours and MRSA nares negative. Will discontinue vancomycin and Zosyn and will start azithromycin and Rocephin. Patient's ventilator requirements have been unchanged, but has been saturating in the 94% therefore we will try and wean down on oxygen requirements. His blood pressure has been stable off Levophed and only on midodrine. His kidney function has been worsening, but expect improvement with more diuresis. Started Amiodarone 200mg qday. 03/02/2025: No overnight events, todays weight 246, we will continue bumex drip. NIF today as -12, we will re-evaluate tomorrow to attempt extubation. Midodrine decreased to 5 q6hr 03/03/2025: Patient was seen examined at bedside this morning. No acute overnight events. Patient was taken off the Precedex yesterday night. Today's weight is 242 kg. Succesfull extubation today, will transition to bipap. 03/06/2025: Was notified by floors team that patient is tachypneic in the 40s with increased work of breathing, confusion, and agitation. He was AAOx 1 (name) and saying leave me alone. He continues to pull at his BIPAP and had to be restrained, with a sitter at bedside. His BIPAP settings were uptitrated from 10/5 to 16/6 without significant improvement of PCO2. Repeat ABG showed pH 7.37 with CO2 at 74. Floor team attempted to notify family with no answer. He remains confused and agitated. Patient to be intubated due to worsening respiratory effort. 03/06/2025: Patient was seen and examined at bedside this morning. He was sedated in the morning, but was weaned off. Patient was able to follow commands he understood and was able to at least answer yes and no questions. Patient was placed on spontaneous breathing trial, but his RSBI was in the 130s therefore patient was high risk to fail extubation at this time. Placed patient back on prior ventilator settings, will follow any sedation at this time as she is calm. Sedation will be placed if patient becomes agitated. Patient is diuresing well and his current weight today is 227 kilograms. Gave metolazone 10 mg x 1 today for additional diuresis and started tube feeds today. Will reattempt weaning parameters tomorrow for possible extubation. 03/07/2025: Patient seen and examined at bedside this morning. No overnight events. Patient's weight today was 226.4 kg. Patient's blood gas that showed a pH of 7.46, PCO2 of 53, and PO2 of 65 this most likely his baseline PCO2. Patient initially did not get his Bumex as it was discontinued the night prior, but today we will continue Bumex 1 mg twice daily. Chest x-ray that showed some more vascular congestion, but still on and physical exam was clear bilaterally. Patient passed spontaneous breathing trial and was extubated successfully today. At this time we will downgrade back to the medical floors. 03/10/2025: Patient was upgraded today at approximately 15:30 for intubation due to declining mentation on the BiPAP, despite remaining on BiPAP for majority of the last 24 hours. Patient was no longer able to answer questions and not following commands. Patient's decision-maker was contacted who consented for intubation. ABG in the morning had shown pH 7.31, pCO2 81, pO2 63, HCO3 41. Will start fentanyl and propofol. Will continue amiodarone PO dose through OG tube. If HR not rate controlled resume metoprolol XL as well. Will continue to hold the Bumex due to worsening KENIA and soft BPs. 03/11/2025: Patient seen and examined at bedside this morning. No acute overnight events. Patient is on sedation, will try and wean down sedation to assess his neurological status at this time. Patient's kidney function continue to worsen with creatinine going up to 2.2, but at this time chest x-ray showed a lot of congestion therefore we will restart Bumex 1 mg twice daily. ABG today shows some respiratory alkalosis with pH of 7.48, pCO2 of 54, and PO2 of 67. Patient has already been upgraded multiple times to the ICU requiring intubation during this hospital stay due to similar symptoms. Patient will most likely benefit from a tracheostomy at this point to overcome the anatomical issues causing him to become hypoxic and hypercapnic, will speak with patient's family and the patient himself once he is weaned off sedation.. Patient had no fevers and his WBCs are downtrending. 03/12/2025: Patient was seen and examined at bedside this morning. Overnight patient was a little bit agitated and biting on the tube therefore he was given a push of Versed. This morning will wean down sedation to possibly assess patient's neurological status and discussed the possibility of needing a tracheostomy with him. Chest x-ray does look a little bit better with less congestion today. GNR were stained in Sputum cultures. Patient's current weight is 220 kg. Will stop diuretics as patient kidney function is continuing to worsen. Will start free water flushes and give him some IV fluids today. Will speak about possible tracheostomy once he wakes up. I ws notified by patient's parent's that the patient is jehova's witness therefore would not want any blood products. 03/13/2025: Patient was seen and examined at bedside this morning. No acute overnight events. Patient's kidney function continues to worsen as his creatinine is 2.5 today, will give 1 L of IV fluids and will continue with free water flushes for now. Holding diuresis at this time. Patient did grow Enterobacter Cloacoe in the sputum which was sensitive to cefepime therefore we will continue with cefepime for now. Patient potassium was also low therefore gave 40 mEq x 1. Surgery plans for tracheostomy or Tuesday therefore holding Xarelto for now. Turned off all sedation and will reassess neurological status in the evening. Exam Vital Signs Temp Pulse Resp BP Pulse Ox O2 Del Method O2 Flow Rate 97.1 F 82 20 117/81 95 Mechanical Ventilation 5 03/13/25 04:00 03/13/25 09:38 03/13/25 06:00 03/13/25 09:38 03/13/25 06:00 03/13/25 06:00 03/10/25 11:46 FiO2 55 03/13/25 06:00 Narrative Exam General: Mechanically ventilated, morbidly obese able to track, but still very drowsy Eyes: Pupils equally reactive. Ears: No visible ear discharge Nose: No nasal discharge. Mouth/Throat: Moist mucous membranes, no redness, no lesions. Neck: Short neck non-tender, no cervical lymphadenopathy. Lungs: Clear BANG in upper lobes and decreased in Lower lobes likely in the setting of body habitus. Cardio: Distant heart sounds likely due to body habitus, normal S1/S2, regular rhythm, no murmurs, no JVD Abdomen: Swollen lower abdomen no change from yesterday, no palpable masses, peristalsis present, no guarding or rebound. Extremities: Symmetrical, no significant deformities, 1+ peripheral edema , non- tender, peripheral pulses presents. Skin: No rashes, no lesions, warm to touch Neuro: Pupils reactive, able to tract and open eyes, still drowsy Objective Labs 03/13/25 04:36 03/13/25 04:36 Labs: Laboratory Results - last 24 hr 03/12/25 03/13/25 03/13/25 12:02 04:32 04:36 WBC 10.3 RBC 4.23 L Hgb 12.1 L Hct 38.3 L MCV 91 MCH 28.6 MCHC 31.6 RDW Std Deviation 46.6 H Plt Count 390 D Neut % (Auto) 80 Lymph % (Auto) 8 L [place] % (Auto) 9 Eos % (Auto) 3 Baso % (Auto) 1 Neut # (Auto) 8.2 H Lymph # (Auto) 0.8 L [place] # (Auto) 0.9 H Eos # (Auto) 0.3 Baso # (Auto) 0.1 Immature Gran # (Auto) 0.09 H Absolute Nucleated RBC 0.00 Immature Gran % 1 H Nucleated RBC % 0 Puncture Site Left Radial ABG pH 7.47 H ABG pCO2 53 H ABG pO2 60 L ABG HCO3 38 H ABG O2 Saturation 93 ABG Base Excess 13 H FiO2 55 Sodium 152 H Potassium 3.2 L D Chloride 106 Carbon Dioxide 35.3 H Anion Gap 11 BUN 75 H Creatinine 2.5 H Estim Creat Clear Calc 53.6 L eGFR 28 L BUN/Creatinine Ratio 30 H Glucose 178 H Calculated Osmolality 327 H Calcium 8.7 Corrected Calcium 9.6 Magnesium 1.9 Total Bilirubin 0.8 AST 27 ALT 16 Alkaline Phosphatase 97 Total Protein 5.5 L Albumin 2.9 L D Globulin 2.6 Albumin/Globulin Ratio 1.1 L Procalcitonin 0.66 H ABG Interpretation ABG results: 02/27/25 02/28/25 03/01/25 06:55 04:57 04:39 ABG pH 7.27 L 7.37 D 7.41 ABG pCO2 57 H 48 44 ABG pO2 101 78 L D 69 L ABG HCO3 26 28 H 28 H ABG O2 Saturation 98 95 93 ABG Base Excess -2 2 3 VBG pH VBG pCO2 VBG pO2 VBG Base Excess 03/01/25 03/01/25 03/02/25 13:15 14:52 04:25 ABG pH Cancelled 7.41 7.45 ABG pCO2 Cancelled 45 42 ABG pO2 Cancelled 53 L* 66 L ABG HCO3 Cancelled 28 H 29 H ABG O2 Saturation Cancelled 85 L 92 ABG Base Excess Cancelled 3 5 H VBG pH VBG pCO2 VBG pO2 VBG Base Excess 03/03/25 03/05/25 03/05/25 04:40 16:30 16:55 ABG pH 7.45 Cancelled 7.34 L D ABG pCO2 43 Cancelled 72 H* D ABG pO2 72 L Cancelled 83 ABG HCO3 30 H Cancelled 38 H ABG O2 Saturation 94 Cancelled 95 ABG Base Excess 5 H Cancelled 9 H VBG pH VBG pCO2 VBG pO2 VBG Base Excess 03/05/25 03/06/25 03/06/25 23:36 01:48 05:22 ABG pH 7.37 7.34 L 7.52 H D ABG pCO2 67 H 74 H* 47 D ABG pO2 150 H D 88 D 160 H D ABG HCO3 38 H 40 H 38 H ABG O2 Saturation 99 H 96 100 H ABG Base Excess 10 H 11 H 13 H VBG pH VBG pCO2 VBG pO2 VBG Base Excess 03/06/25 03/07/25 03/07/25 17:10 05:00 14:03 ABG pH 7.46 H ABG pCO2 53 H ABG pO2 65 L D ABG HCO3 38 H ABG O2 Saturation 93 ABG Base Excess 12 H VBG pH 7.50 7.52 VBG pCO2 50 47 VBG pO2 70 H 61 H VBG Base Excess 13 H 14 H 03/09/25 03/09/25 03/09/25 08:17 10:25 17:29 ABG pH 7.25 L D 7.29 L 7.29 L ABG pCO2 93 H* D 85 H* 88 H* ABG pO2 81 L 57 L* D 85 D ABG HCO3 41 H 40 H 43 H ABG O2 Saturation 95 89 L 97 ABG Base Excess 10 H 10 H 12 H VBG pH VBG pCO2 VBG pO2 VBG Base Excess 03/09/25 03/10/25 03/10/25 23:24 07:17 11:25 ABG pH 7.32 L 7.28 L 7.31 L ABG pCO2 78 H* D 90 H* D 81 H* ABG pO2 69 L 47 L* D 63 L ABG HCO3 40 H 43 H 41 H ABG O2 Saturation 94 80 L 93 ABG Base Excess 11 H 12 H 11 H VBG pH VBG pCO2 VBG pO2 VBG Base Excess 03/10/25 03/11/25 03/12/25 16:56 04:19 04:42 ABG pH 7.40 7.48 H 7.43 ABG pCO2 66 H D 54 H D 59 H ABG pO2 68 L 67 L 77 L ABG HCO3 41 H 40 H 39 H ABG O2 Saturation 94 94 96 ABG Base Excess 13 H 15 H 12 H VBG pH VBG pCO2 VBG pO2 VBG Base Excess 03/13/25 04:32 ABG pH 7.47 H ABG pCO2 53 H ABG pO2 60 L ABG HCO3 38 H ABG O2 Saturation 93 ABG Base Excess 13 H VBG pH VBG pCO2 VBG pO2 VBG Base Excess Quality Measures Quality Measures sepsis Current suspected stage: ruled out Possible source: pulmonary Blood cultures ordered: completed in ED Antibiotic ordered: Yes Advance care planning discussed with:: patient Assessment & Plan Assessment Current Active Medications: Generic Name Dose Route Start Last Admin Trade Name Freq PRN Reason Stop Dose Admin Acetaminophen 650 mg 03/10/25 19:17 Acetaminophen 325 Mg Tablet PO 03/29/25 09:23 Q4HR PRN fever > 100.4 Al Hydrox/Mg Hydrox/Simethicone 30 ml 02/27/25 09:24 Mg Hyd/Al Hyd/Virgilio (Maalox Reg) Susp 30 Ml Udc PO 03/29/25 09:23 Q4HR PRN Heartburn or Upset Stomach Amiodarone HCl 200 mg 03/01/25 09:00 03/13/25 09:38 Amiodarone Hcl 200 Mg Tablet PO 03/31/25 08:59 200 mg QDAY KOURTNEY Administration Dextrose 25 ml 03/03/25 08:20 Dextrose 50%-Water Inj 50 Ml Syringe IV 04/02/25 08:19 Q15MIN PRN BG 50-70 responsive npo pt Dextrose 50 ml 03/03/25 08:20 Dextrose 50%-Water Inj 50 Ml Syringe IV 04/02/25 08:19 Q15MIN PRN BG <50 OR BG <70 & pt unresponsive Glucagon 1 mg 03/03/25 08:20 Glucagon Inj 1 Mg Vial IM Q15MIN PRN BG <70, and no IV access Cefepime HCl 1 gm/ Sodium 50 mls @ 100 mls/hr 03/11/25 21:00 03/13/25 09:42 Chloride IV 03/18/25 20:59 100 mls/hr Q12HR KOURTNEY Administration Fentanyl Citrate 2,500 mcg in 250 mls @ 2.5 mls/hr 03/12/25 13:17 Sublimaze Inj 2,500 Mcg/250 Ml Bag IV 03/15/25 15:55 .Q24H PRN PER PROTOCOL Protocol 25 MCG/HR Propofol 1,000 mg in 100 mls @ 6.801 mls/hr 03/12/25 13:18 Diprivan Ivpb IV 04/09/25 15:55 .[id number] PRN PER PROTOCOL Protocol 5 MCG/KG/MIN Dexmedetomidine/Sodium Chloride 400 mcg in 100 mls @ 11.305 mls/hr 03/12/25 14:03 03/13/25 06:31 Precedex Ivpb IV 04/11/25 14:02 0.2 mcg/kg/hr .Q8H51M PRN 11.305 mls/hr Per PROTOCOL Administration Protocol 0.2 MCG/KG/HR Lactated Ringer's 1,000 mls @ 999 mls/hr 03/13/25 09:48 Lactated Ringers IV 03/13/25 10:48 .Q1H1M ONE Insulin Human Lispro 0 unit 03/06/25 06:00 03/13/25 05:16 Insulin Lispro (Admelog) 1 Unit/0.01 Ml Unit SC 04/05/25 05:59 1 unit Q6H KOURTNEY Administration Protocol Magnesium Hydroxide 30 ml 02/27/25 09:24 Milk Of Magnesia Susp 30 Ml Udc PO 03/29/25 09:23 QDAY PRN CONSTIPATION Metoprolol Succinate 100 mg 03/03/25 21:00 03/09/25 20:53 Metoprolol Succinate Xl 25 Mg Tabcr PO 04/02/25 20:59 Not Given BID KOURTNEY Metoprolol Tartrate 5 mg 03/09/25 22:00 03/10/25 14:30 Metoprolol Tartrate Inj 1 Mg/Ml Amp 5 Ml IVP 04/08/25 21:59 Not Given Q8HR KOURTNEY Ondansetron HCl 4 mg 03/05/25 20:46 03/09/25 03:49 Ondansetron Inj 2 Mg/Ml Inj 2 Ml IV 04/04/25 20:45 4 mg Q6HR PRN Administration NAUSEA OR VOMITING Protocol Pantoprazole Sodium 40 mg 02/27/25 11:15 03/13/25 09:39 Pantoprazole Inj 40 Mg Vial IV 03/29/25 11:14 40 mg QDAY KOURTNEY Administration Rivaroxaban 20 mg 03/04/25 17:30 03/12/25 13:27 Rivaroxaban 10 Mg Tablet PO 04/03/25 17:29 Not Given WSUPPER KOURTNEY Plan 64-year-old male with past medical history of DM2, hypertension, A-fib, and Jehova's witness was admitted to the ICU on 02/27/2025 for shock and acute hypoxic respiratory failure. He was extubated on 03/03 and downgraded then re- intubated on 03/06 due to confusion and tachypneia. He was then extubated and downgraded to the floor on 03/07. On 03/10, patient again had decreased mentation on the BiPAP so was reintubated and upgraded. 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 Daily weights Strict I&O measurement #Hx of A-fib [id number] score of 3 points indicating 3.2% risk of stroke per year Has bled score of 0 Continue PO amiodarone 200 mg qday Holding metoprolol succinate 100 mg twice daily for now holding Xarelto 20 mg daily for surgery on or tuesday. Echo could not visualize all chambers Respiratory: #Acute on chronic hypoxic and hypercapnic respiratory failure #Obesity hypoventilation syndrome and obstructive sleep apnea #Community-acquired pneumonia, Enterobacter Cloacoe Patient was intubated on 02/27/2025, extubated 03/03/2025. Reintubated on 03/06/2025 and extubated 03/07/2025. Reintubated 03/10/2025 for hypercapnic encephalopathy ABG today showed pH 7.48, PO2 of 67, and pCO2 of 54 CXR today showed improvement in congestion Patient had completed Rocephin (03/06/2025) Sputum cultures grew Enterobacter Cloacoe sensitive to cefepime Will continue with cefepime for now until 03/18/25 Renal: #KENIA #Metabolic alkalosis Creatinine today 2.5, baseline is around 1 Stopped Bumex 1 mg twice daily Gave 1 L IV fluids and will continue with free water flushes every 6 hours Will consider nephrology consult if patient's kidney function continues to deteriorate Avoid nephrotoxic agent Renally dose medication GI: stable Endo: #Morbid obesity Patient has a BMI of 79.5 #DM2 A1C 7.6 on 03/05/2025 ISS Hypoglycemia protocol ordered Heme: #Leukocytosis Downtrending ID: #Community-acquired pneumonia, Enterobacter cloacoe Finished Rocephin (03/06/2025) WBC slightly went up to 14.7 from 13.9 yesterday, no fevers Patient grew Enterobacter cloacoe in sputum sensitive to cefepime Continue cefepime Hospital Maintenance: Diet: tube feeds DVT ppx: Xarelto on hold for surgery or tuesday GI ppx: protonix IV lines: PIV Fuller: pure wick Code status: Full code Dispo: ICU for acute on chronic hypoxic and hypercapnic respiratory failure. Case disclosed with Attending Dr. Faraz Cornejo PGY1 Disclaimer: This note was dictated by speech recognition, therefore there may be minor errors in credit risk review officer due to voice.
[2025-03-13] MEDS: RINGERS LACTATED 1000 ML 1,000 ML 999 ML IV (10:30)
--- NOTE | 2025-03-13 15:50 | XR_ITS ---
Examination: AP chest single view Technique one AP portable semiupright chest single view Standing time: March 13, 2025 1625 hours Comparison March 13, 2025 INDICATIONS: Acute hypoxic respiratory failure, postintubation, heart failure on earlier chest imaging this week FINDINGS: Moderate enlargement cardiac contour Prominent vascular congestion including central vascular engorgement Again noted extensive bibasilar lung opacity Endotracheal tube tip 6.3 cm above Meggan The film is underpenetrated which does not adequately visualize the lower orogastric tube IMPRESSION: Again noted significant bibasilar pneumonia with mild associated or heart failure Abdomen film follow-up would best assess orogastric tube position
--- NOTE | 2025-03-13 16:36 | PC.SS ---
Update: Patient remains intubated. Sedation ceased. Kidney functioning decreasing. Patient receiving IV fluids. Tube feedings in place. Plan is for patient be trached tomorrow.
--- NOTE | 2025-03-13 19:12 | ESPR_ITS ---
RE: KOFI CRAWFORD : 1960 DATE OF SERVICE: 03/13/2025 SUBJECTIVE: Kofi Crawford is a 64-year-old male admitted to the hospital with multiple problems, sleep apnea, hypertension, morbid obesity, and hypoxic respiratory failure. Now intubated on mechanical ventilation, hypoxia, and hypercapnia. He continues to be unable to be extubated so far. He is still intubated on mechanical ventilation. His renal function has worsened. Creatinine went to 2.5, and fluid was given. The patient did have some right heart failure predominantly, but no evidence of left heart failure. He is receiving IV antibiotics as well. OBJECTIVE: Vital Signs: Intubated, mechanical ventilation, sedated. Blood pressure 120/80, pulse rate 80, respirations 18, temperature normal, pulse oximetry 95% on mechanical ventilation. General: Morbidly obese male, chronically ill, sedated. HEENT: Unremarkable. Neck: Supple. Lungs: Bilateral basal diminished breath sounds. Abdomen: Morbidly obese and soft. Extremities: Chronic 1+ edema on both feet. /Rectal: Not performed. LABORATORY DATA: Showed hemoglobin and hematocrit stable. 12 g hemoglobin. BUN and creatinine are 75 and 2.5, dehydration, sodium 152 as well. ASSESSMENT: 1. Acute hypoxic hypercapnic respiratory failure. 2. Morbid obesity, sleep apnea. 3. Acute on chronic kidney disease and renal failure. 4. Dehydration. RECOMMENDATIONS: I agree with IV fluids and not give any more diuretics. The patient is not making much progress at this point other than worsening of renal function. DT: 18:21:09 TT: 19:00:00 Ref: [id number] - TID: [id number]
[2025-03-13] MEDS: DEXMEDETOMIDINE 400 MCG IVPB 400 MCG/100 ML BAG 22.61 MCG IV (21:00)
[2025-03-13] MEDS: DEXMEDETOMIDINE 400 MCG IVPB 400 MCG/100 ML BAG 45.22 MCG IV (23:44)
[2025-03-14] VITALS (34 sets, daily range): BP systolic 66–125; BP diastolic 48–89; PULSE 69–144; RESP 18–28; TEMP 36.3–37.4; O2SAT 91–100; BMI 81.1
[2025-03-14] MEDS: DEXMEDETOMIDINE 400 MCG IVPB 400 MCG/100 ML BAG 33.915 MCG IV (02:51)
[2025-03-14 04:48] LABS: Base Excess 10 (-3-3); HCO3 36 mEq/L (20-26); Inspired Oxygen, FIO2 50 %; O2 Saturation 95 % (91-98); PCO2 50 mmHg (32.0-48.0); PO2 70 mmHg (83-108); pH, Arterial 7.46 (7.35-7.45)
[2025-03-14 04:51] LABS: Allen Test Performed/OK; Puncture Site Left Radial
[2025-03-14 05:33] LABS: Basophils # (Auto) 0.1 Thou/mm3 (0.0-0.2); Basophils % (Auto) 1 % (0-2.5); Eosinophils # (Auto) 0.2 Thou/mm3 (0.0-0.5); Eosinophils % (Auto) 2 % (0-10); Hematocrit 38.7 % (41.0-53.0); Hemoglobin 12.2 g/dL (13.5-16.0); Immature Granulocytes % (Auto) 1 % (0-0); Immature Granulocytes Auto 0.08 Thou/mm3 (0.00-0.00); Lymphocytes # (Auto) 0.8 Thou/mm3 (1.0-4.8); Lymphocytes % (Auto) 8 % (10-50); Mean Corpuscular HGB Conc 31.5 g/dl (31.0-37.0); Mean Corpuscular Hemoglobin 28.1 pg (25.0-35.0); Mean Corpuscular Volume 89 fL (80-100); Monocytes # (Auto) 0.8 Thou/mm3 (0.0-0.8); Monocytes % (Auto) 8 % (0-12); Neutrophils # (Auto) 7.9 Thou/mm3 (1.8-7.7); Neutrophils % (Auto) 80 % (37-80); Nucleated Red Blood Cell % 0 /100 WBC (0); Platelet Count 319 Thou/mm3 (140-440); RDW Standard Deviation 45.8 fL (35.1-43.9); Red Blood Count 4.34 Miln/mm3 (4.50-5.90); White Blood Count 9.9 Thou/mm3 (3.8-10.6)
[2025-03-14 06:25] LABS: Alanine Aminotransferase 19 U/L (10-49); Albumin, Serum 2.6 gm/dL (3.4-4.8); Albumin/Globulin Ratio 1.2 (1.2-2.2); Alkaline Phosphatase 98 U/L (46-116); Anion Gap 11 (7-16); Aspartate Amino Transferase 32 U/L (0-34); BUN/Creatinine Ratio 32 Ratio (12-20); Bilirubin,Total 0.8 mg/dL (0.3-1.2); Blood Urea Nitrogen 79 mg/dL (9-23); Calcium 8.5 mg/dL (8.3-10.6); Calcium (Corrected) 9.6 mg/dL (8.5-10.1); Carbon Dioxide 32.9 mMol/L (20.0-31.0); Chloride 108 mMol/L (98-107); Creatinine (Component) 2.5 mg/dL (0.6-1.3); Estimated Creatinine Clearance 53.6 mL/min (>60); Globulin 2.1 gm/dL (2.3-3.5); Glucose 202 mg/dL (74-106); Osmolality,Calculated 331 (275-295); Potassium 3.9 mMol/L (3.4-5.1); Sodium 152 mMol/L (136-145); Total Protein 4.7 gm/dL (5.7-8.2); eGFR 28 See Note
[2025-03-14] MEDS: PANTOPRAZOLE INJ 40 MG VIAL IV (09:42)
[2025-03-14] MEDS: CEFEPIME INJ 1 GM in SODIUM CHLORIDE 0.9% (Popper) 50 ML IV ×2 (09:42→20:31)
--- NOTE | 2025-03-14 09:48 | XR_ITS ---
Examination: Abdomen AP single view Technique: AP portable supine abdomen, single view Exam date and time: March 14, 2025 1003 hours INDICATIONS: Post orogastric tube placement FINDINGS: Orogastric tube in the stomach satisfactory position No free air IMPRESSION: Orogastric tube in the stomach satisfactory position
[2025-03-14] MEDS: AMIODARONE HCL 200 MG TABLET PO (10:18)
--- NOTE | 2025-03-14 10:39 | ESPR_ITS ---
<Statement entered by Apolonia Ruth MD - 03/15/25 16:02> TOTAL TIME: 45MINUTES ON DIRECT MEDICAL CARE, MANAGEMENT - COORDINATION AND COUNSELING > 50% OF TOTAL TIME I saw and evaluated the patient. I reviewed the resident?s note and agree with findings and plan as documented in the resident?s note. successful tracheostomy placement begin weaning from trach soon monitor site for bleeding resume full dose AC if no bleeding post 24hrs can trx to tele tomorrow if no setbacks Documentation for date of: 03/14/25 Subjective Subjective Interval history: 64-year-old male with past medical history of DM2, hypertension, and A-fib was admitted to the ICU on 02/27/2025 after coming to the ED with complaints of altered mental status and shortness of breath. Patient was intubated in the ED therefore most of the history was taken from chart review and from the parents who are at bedside. Patient's parents stated that yesterday morning patient could not get up from his chair and then later that evening/night he started getting confused and was not making sense when he was seen. This morning EMS found the patient on the floor and he was saturating in the 70s even on high flow nasal cannula. Given his hypoxia patient was intubated in the ED. As per parents were at bedside they stated that prior to this patient was able to walk around, but that since yesterday morning he was unable to walk. On assessment patient was intubated, but was still able to answer yes or no questions. He was also able to follow commands. Patient spiked a fever while in the ED and he became hypotensive unresponsive to IV fluids therefore he was placed on vasopressors. 02/28/2025: Patient was seen examined at bedside this morning. Overnight patient did spike a fever of 100.4 and he had no measurable urine output. Patient placed on amio drip overnigth. He was also given Bumex 1 mg x 1 overnight to see if he had better urine output, but none was measured. Today's patient's chest x-ray this looks like it is improving and he did have wet pants and some urine in the pure wick catheter. Will start patient on Bumex drip at 1 mg and will monitor patient's daily weights. Patient was on very low-dose of Levophed therefore we will start patient on midodrine 10 mg every 6 hours and wean off Levophed entirely. Patient is nasogastric tube was not visualized had x-ray, but on auscultation air was audible in the stomach when hand was placed through the nasogastric tube. Will discontinue patient's vancomycin and Zosyn if his MRSA is negative and will transition to azithromycin and Rocephin. 03/01/2025: Patient seen and examined at bedside this morning. Overnight patient went into A-fib with RVR and he finishes bolus of amiodarone. Patient had a documented urine output of 150, but that she states 1 were very wet. His Bumex drip finished overnight and they were not able to start more Bumex drip as there was not available in the pharmacy overnight. Patient's weight did go down from 249 to 247 kg. Blood cultures have been negative in 48 hours and MRSA nares negative. Will discontinue vancomycin and Zosyn and will start azithromycin and Rocephin. Patient's ventilator requirements have been unchanged, but has been saturating in the 94% therefore we will try and wean down on oxygen requirements. His blood pressure has been stable off Levophed and only on midodrine. His kidney function has been worsening, but expect improvement with more diuresis. Started Amiodarone 200mg qday. 03/02/2025: No overnight events, todays weight 246, we will continue bumex drip. NIF today as -12, we will re-evaluate tomorrow to attempt extubation. Midodrine decreased to 5 q6hr 03/03/2025: Patient was seen examined at bedside this morning. No acute overnight events. Patient was taken off the Precedex yesterday night. Today's weight is 242 kg. Succesfull extubation today, will transition to bipap. 03/06/2025: Was notified by floors team that patient is tachypneic in the 40s with increased work of breathing, confusion, and agitation. He was AAOx 1 (name) and saying leave me alone. He continues to pull at his BIPAP and had to be restrained, with a sitter at bedside. His BIPAP settings were uptitrated from 10/5 to 16/6 without significant improvement of PCO2. Repeat ABG showed pH 7.37 with CO2 at 74. Floor team attempted to notify family with no answer. He remains confused and agitated. Patient to be intubated due to worsening respiratory effort. 03/06/2025: Patient was seen and examined at bedside this morning. He was sedated in the morning, but was weaned off. Patient was able to follow commands he understood and was able to at least answer yes and no questions. Patient was placed on spontaneous breathing trial, but his RSBI was in the 130s therefore patient was high risk to fail extubation at this time. Placed patient back on prior ventilator settings, will follow any sedation at this time as she is calm. Sedation will be placed if patient becomes agitated. Patient is diuresing well and his current weight today is 227 kilograms. Gave metolazone 10 mg x 1 today for additional diuresis and started tube feeds today. Will reattempt weaning parameters tomorrow for possible extubation. 03/07/2025: Patient seen and examined at bedside this morning. No overnight events. Patient's weight today was 226.4 kg. Patient's blood gas that showed a pH of 7.46, PCO2 of 53, and PO2 of 65 this most likely his baseline PCO2. Patient initially did not get his Bumex as it was discontinued the night prior, but today we will continue Bumex 1 mg twice daily. Chest x-ray that showed some more vascular congestion, but still on and physical exam was clear bilaterally. Patient passed spontaneous breathing trial and was extubated successfully today. At this time we will downgrade back to the medical floors. 03/10/2025: Patient was upgraded today at approximately 15:30 for intubation due to declining mentation on the BiPAP, despite remaining on BiPAP for majority of the last 24 hours. Patient was no longer able to answer questions and not following commands. Patient's decision-maker was contacted who consented for intubation. ABG in the morning had shown pH 7.31, pCO2 81, pO2 63, HCO3 41. Will start fentanyl and propofol. Will continue amiodarone PO dose through OG tube. If HR not rate controlled resume metoprolol XL as well. Will continue to hold the Bumex due to worsening KENIA and soft BPs. 03/11/2025: Patient seen and examined at bedside this morning. No acute overnight events. Patient is on sedation, will try and wean down sedation to assess his neurological status at this time. Patient's kidney function continue to worsen with creatinine going up to 2.2, but at this time chest x-ray showed a lot of congestion therefore we will restart Bumex 1 mg twice daily. ABG today shows some respiratory alkalosis with pH of 7.48, pCO2 of 54, and PO2 of 67. Patient has already been upgraded multiple times to the ICU requiring intubation during this hospital stay due to similar symptoms. Patient will most likely benefit from a tracheostomy at this point to overcome the anatomical issues causing him to become hypoxic and hypercapnic, will speak with patient's family and the patient himself once he is weaned off sedation.. Patient had no fevers and his WBCs are downtrending. 03/12/2025: Patient was seen and examined at bedside this morning. Overnight patient was a little bit agitated and biting on the tube therefore he was given a push of Versed. This morning will wean down sedation to possibly assess patient's neurological status and discussed the possibility of needing a tracheostomy with him. Chest x-ray does look a little bit better with less congestion today. GNR were stained in Sputum cultures. Patient's current weight is 220 kg. Will stop diuretics as patient kidney function is continuing to worsen. Will start free water flushes and give him some IV fluids today. Will speak about possible tracheostomy once he wakes up. I ws notified by patient's parent's that the patient is jehova's witness therefore would not want any blood products. 03/13/2025: Patient was seen and examined at bedside this morning. No acute overnight events. Patient's kidney function continues to worsen as his creatinine is 2.5 today, will give 1 L of IV fluids and will continue with free water flushes for now. Holding diuresis at this time. Patient did grow Enterobacter Cloacoe in the sputum which was sensitive to cefepime therefore we will continue with cefepime for now. Patient potassium was also low therefore gave 40 mEq x 1. Surgery plans for tracheostomy or Tuesday therefore holding Xarelto for now. Turned off all sedation and will reassess neurological status in the evening. 03/14/2025: No overnight events reported. Total urine output overnight 300 cc. No pyrexia reported. Precedex stopped at 7:35 AM. Scheduled trach at 12 PM. Patient examined at bedside. Patient continues to be mechanically ventilated on a PEEP of 8, FiO2 of 50 and tidal volume 420 thus nonverbal. Patient noted to have lower pedal edema. Patient's acute kidney injury unchanged from previous labs creatinine 2.5 and GFR of 28. Hypernatremia hyperosmolar. Morning ABG showing metabolic alkalosis with improved pCO2 of 50 and bicarb of 36. Patient is currently n.p.o. and scheduled for trach at 12 PM today. Restart heparin 6 hours after procedure. Exam Vital Signs Temp Pulse Resp BP Pulse Ox O2 Del Method O2 Flow Rate 98.9 F 86 23 H 92/67 93 L Mechanical Ventilation 5 03/14/25 08:00 03/14/25 10:34 03/13/25 19:00 03/14/25 10:18 03/14/25 10:34 03/14/25 08:00 03/10/25 11:46 FiO2 50 03/14/25 10:34 Narrative Exam General Appearance: Alert & Oriented X0, obese male who is lying in bed in no acute distress, mechanically ventilated. HEENT: Skull symmetrical and atraumatic. Conjunctivae pale pink and moist. Pupils equal, round, reactive to light and accommodation (PERRL). External ear without lesion or discharge. Cardio: Normal Rate and Rhythm with S1 and S2 heart sounds. No murmurs or extra heart sounds auscultated. No bruits on carotid auscultation. Lower pedal edema. Lungs: Symmetric expansion. Breath sounds vesicular but with upper airway sounds from ventilation. No crackles, wheezing or rhonchi Abdomen: Non-tender, Non-distended, Normal Reactive Bowel Sounds Neuro: No Alert, NO cooperative, No oriented to person, No place, and NO time. No verbal. Not following commands- unable to access motor strength. Objective Labs 03/14/25 04:40 03/14/25 04:40 Labs: Laboratory Results - last 24 hr 03/14/25 03/14/25 04:25 04:40 WBC 9.9 RBC 4.34 L Hgb 12.2 L Hct 38.7 L MCV 89 MCH 28.1 MCHC 31.5 RDW Std Deviation 45.8 H Plt Count 319 D Neut % (Auto) 80 Lymph % (Auto) 8 L [place] % (Auto) 8 Eos % (Auto) 2 Baso % (Auto) 1 Neut # (Auto) 7.9 H Lymph # (Auto) 0.8 L [place] # (Auto) 0.8 Eos # (Auto) 0.2 Baso # (Auto) 0.1 Immature Gran # (Auto) 0.08 H Absolute Nucleated RBC 0.00 Immature Gran % 1 H Nucleated RBC % 0 Puncture Site Left Radial ABG pH 7.46 H ABG pCO2 50 H ABG pO2 70 L ABG HCO3 36 H ABG O2 Saturation 95 ABG Base Excess 10 H FiO2 50 Sodium 152 H Potassium 3.9 D Chloride 108 H Carbon Dioxide 32.9 H Anion Gap 11 BUN 79 H Creatinine 2.5 H Estim Creat Clear Calc 53.6 L eGFR 28 L BUN/Creatinine Ratio 32 H Glucose 202 H Calculated Osmolality 331 H Calcium 8.5 Corrected Calcium 9.6 Magnesium 2.0 Total Bilirubin 0.8 AST 32 ALT 19 Alkaline Phosphatase 98 Total Protein 4.7 L Albumin 2.6 L Globulin 2.1 L Albumin/Globulin Ratio 1.2 ABG Interpretation ABG results: 02/27/25 02/28/25 03/01/25 06:55 04:57 04:39 ABG pH 7.27 L 7.37 D 7.41 ABG pCO2 57 H 48 44 ABG pO2 101 78 L D 69 L ABG HCO3 26 28 H 28 H ABG O2 Saturation 98 95 93 ABG Base Excess -2 2 3 VBG pH VBG pCO2 VBG pO2 VBG Base Excess 03/01/25 03/01/25 03/02/25 13:15 14:52 04:25 ABG pH Cancelled 7.41 7.45 ABG pCO2 Cancelled 45 42 ABG pO2 Cancelled 53 L* 66 L ABG HCO3 Cancelled 28 H 29 H ABG O2 Saturation Cancelled 85 L 92 ABG Base Excess Cancelled 3 5 H VBG pH VBG pCO2 VBG pO2 VBG Base Excess 03/03/25 03/05/25 03/05/25 04:40 16:30 16:55 ABG pH 7.45 Cancelled 7.34 L D ABG pCO2 43 Cancelled 72 H* D ABG pO2 72 L Cancelled 83 ABG HCO3 30 H Cancelled 38 H ABG O2 Saturation 94 Cancelled 95 ABG Base Excess 5 H Cancelled 9 H VBG pH VBG pCO2 VBG pO2 VBG Base Excess 03/05/25 03/06/25 03/06/25 23:36 01:48 05:22 ABG pH 7.37 7.34 L 7.52 H D ABG pCO2 67 H 74 H* 47 D ABG pO2 150 H D 88 D 160 H D ABG HCO3 38 H 40 H 38 H ABG O2 Saturation 99 H 96 100 H ABG Base Excess 10 H 11 H 13 H VBG pH VBG pCO2 VBG pO2 VBG Base Excess 03/06/25 03/07/25 03/07/25 17:10 05:00 14:03 ABG pH 7.46 H ABG pCO2 53 H ABG pO2 65 L D ABG HCO3 38 H ABG O2 Saturation 93 ABG Base Excess 12 H VBG pH 7.50 7.52 VBG pCO2 50 47 VBG pO2 70 H 61 H VBG Base Excess 13 H 14 H 03/09/25 03/09/25 03/09/25 08:17 10:25 17:29 ABG pH 7.25 L D 7.29 L 7.29 L ABG pCO2 93 H* D 85 H* 88 H* ABG pO2 81 L 57 L* D 85 D ABG HCO3 41 H 40 H 43 H ABG O2 Saturation 95 89 L 97 ABG Base Excess 10 H 10 H 12 H VBG pH VBG pCO2 VBG pO2 VBG Base Excess 03/09/25 03/10/25 03/10/25 23:24 07:17 11:25 ABG pH 7.32 L 7.28 L 7.31 L ABG pCO2 78 H* D 90 H* D 81 H* ABG pO2 69 L 47 L* D 63 L ABG HCO3 40 H 43 H 41 H ABG O2 Saturation 94 80 L 93 ABG Base Excess 11 H 12 H 11 H VBG pH VBG pCO2 VBG pO2 VBG Base Excess 03/10/25 03/11/25 03/12/25 16:56 04:19 04:42 ABG pH 7.40 7.48 H 7.43 ABG pCO2 66 H D 54 H D 59 H ABG pO2 68 L 67 L 77 L ABG HCO3 41 H 40 H 39 H ABG O2 Saturation 94 94 96 ABG Base Excess 13 H 15 H 12 H VBG pH VBG pCO2 VBG pO2 VBG Base Excess 03/13/25 03/14/25 04:32 04:25 ABG pH 7.47 H 7.46 H ABG pCO2 53 H 50 H ABG pO2 60 L 70 L ABG HCO3 38 H 36 H ABG O2 Saturation 93 95 ABG Base Excess 13 H 10 H VBG pH VBG pCO2 VBG pO2 VBG Base Excess Quality Measures Quality Measures sepsis Current suspected stage: ruled out Possible source: pulmonary Blood cultures ordered: completed in ED Antibiotic ordered: Yes Advance care planning discussed with:: patient Assessment & Plan Assessment Current Active Medications: Generic Name Dose Route Start Last Admin Trade Name Freq PRN Reason Stop Dose Admin Acetaminophen 650 mg 03/10/25 19:17 Acetaminophen 325 Mg Tablet PO 03/29/25 09:23 Q4HR PRN fever > 100.4 Al Hydrox/Mg Hydrox/Simethicone 30 ml 02/27/25 09:24 Mg Hyd/Al Hyd/Virgilio (Maalox Reg) Susp 30 Ml Udc PO 03/29/25 09:23 Q4HR PRN Heartburn or Upset Stomach Amiodarone HCl 200 mg 03/01/25 09:00 03/14/25 10:18 Amiodarone Hcl 200 Mg Tablet PO 03/31/25 08:59 200 mg QDAY KOURTNEY Administration Dextrose 25 ml 03/03/25 08:20 Dextrose 50%-Water Inj 50 Ml Syringe IV 04/02/25 08:19 Q15MIN PRN BG 50-70 responsive npo pt Dextrose 50 ml 03/03/25 08:20 Dextrose 50%-Water Inj 50 Ml Syringe IV 04/02/25 08:19 Q15MIN PRN BG <50 OR BG <70 & pt unresponsive Glucagon 1 mg 03/03/25 08:20 Glucagon Inj 1 Mg Vial IM Q15MIN PRN BG <70, and no IV access Cefepime HCl 1 gm/ Sodium 50 mls @ 100 mls/hr 03/11/25 21:00 03/14/25 09:42 Chloride IV 03/18/25 20:59 100 mls/hr Q12HR KOURTNEY Administration Fentanyl Citrate 2,500 mcg in 250 mls @ 2.5 mls/hr 03/12/25 13:17 Sublimaze Inj 2,500 Mcg/250 Ml Bag IV 03/15/25 15:55 .Q24H PRN PER PROTOCOL Protocol 25 MCG/HR Propofol 1,000 mg in 100 mls @ 6.801 mls/hr 03/12/25 13:18 Diprivan Ivpb IV 04/09/25 15:55 .[id number] PRN PER PROTOCOL Protocol 5 MCG/KG/MIN Dexmedetomidine/Sodium Chloride 400 mcg in 100 mls @ 11.305 mls/hr 03/12/25 14:03 03/14/25 07:54 Precedex Ivpb IV 04/11/25 14:02 Infused .[id number] PRN Titration Per PROTOCOL Protocol 0.2 MCG/KG/HR Insulin Human Lispro 0 unit 03/06/25 06:00 03/14/25 05:27 Insulin Lispro (Admelog) 1 Unit/0.01 Ml Unit SC 04/05/25 05:59 Not Given Q6H KOURTNEY Protocol Magnesium Hydroxide 30 ml 02/27/25 09:24 Milk Of Magnesia Susp 30 Ml Udc PO 03/29/25 09:23 QDAY PRN CONSTIPATION Metoprolol Succinate 100 mg 03/03/25 21:00 03/09/25 20:53 Metoprolol Succinate Xl 25 Mg Tabcr PO 04/02/25 20:59 Not Given BID KOURTNEY Metoprolol Tartrate 5 mg 03/09/25 22:00 03/10/25 14:30 Metoprolol Tartrate Inj 1 Mg/Ml Amp 5 Ml IVP 04/08/25 21:59 Not Given Q8HR KOURTNEY Ondansetron HCl 4 mg 03/05/25 20:46 03/09/25 03:49 Ondansetron Inj 2 Mg/Ml Inj 2 Ml IV 04/04/25 20:45 4 mg Q6HR PRN Administration NAUSEA OR VOMITING Protocol Pantoprazole Sodium 40 mg 02/27/25 11:15 03/14/25 09:42 Pantoprazole Inj 40 Mg Vial IV 03/29/25 11:14 40 mg QDAY KOURTNEY Administration Rivaroxaban 20 mg 03/04/25 17:30 03/12/25 13:27 Rivaroxaban 10 Mg Tablet PO 04/03/25 17:29 Not Given WSUPPER KOURTNEY Plan 64-year-old male with past medical history of DM2, hypertension, A-fib, and Jehova's witness was admitted to the ICU on 02/27/2025 for shock and acute hypoxic respiratory failure. He was extubated on 03/03 and downgraded then re- intubated on 03/06 due to confusion and tachypneia. He was then extubated and downgraded to the floor on 03/07. On 03/10, patient again had decreased mentation on the BiPAP so was reintubated and upgraded. 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 Lower pedal edema likely secondary to venous statis. Holding Bumex 1mg BID given worsening kidney function, no improvement Patient today weight 234 Daily weights Strict I&O measurement #Hx of A-fib [id number] score of 3 points indicating 3.2% risk of stroke per year Has bled score of 0 Continue PO amiodarone 200 mg qday Holding metoprolol succinate 100 mg twice daily for now holding Xarelto 20 mg daily for surgery on -->Transition to Heparin 6 hours after procedure. Echo could not visualize all chambers Respiratory: #Acute on chronic hypoxic and hypercapnic respiratory failure #Obesity hypoventilation syndrome and obstructive sleep apnea #Community-acquired pneumonia, Enterobacter Cloacoe Patient was intubated on 02/27/2025, extubated 03/03/2025. Reintubated on 03/06/2025 and extubated 03/07/2025. Reintubated 03/10/2025 for hypercapnic encephalopathy ABG today showed pH 7.48, PO2 of 67, and pCO2 of 54 CXR today showed improvement in congestion Patient had completed Rocephin (03/06/2025) Sputum cultures grew Enterobacter Cloacoe sensitive to cefepime Will continue with cefepime for now until 03/18/25 Renal: #KENIA #Metabolic alkalosis #Hypernatremia, Hyper-osmolar Creatinine today 2.5, baseline is around 1 Stopped Bumex 1 mg twice daily Gave 1 L IV fluids and will continue with free water flushes every 6 hours Will consider nephrology consult if patient's kidney function continues to deteriorate Avoid nephrotoxic agent Renally dose medication GI: stable Endo: #Morbid obesity Patient has a BMI of 79.5 #DM2 A1C 7.6 on 03/05/2025 ISS Hypoglycemia protocol ordered Heme: #Leukocytosis Downtrending ID: #Community-acquired pneumonia, Enterobacter cloacoe Finished Rocephin (03/06/2025) WBC slightly went up to 14.7 from 13.9 yesterday, no fevers Patient grew Enterobacter cloacoe in sputum sensitive to cefepime Continue cefepime 03/18/2025 Hospital Maintenance: Diet: tube feeds DVT ppx: Xarelto on hold for surgery -->transition to heparin 6 hours after procedure GI ppx: protonix IV lines: PIV Fuller: pure wick Code status: Full code Dispo: ICU for acute on chronic hypoxic and hypercapnic respiratory failure. - The patient's plan was discussed with attending Dr. Faraz Esquivel MD PGY1 Internal Medicine
--- NOTE | 2025-03-14 13:04 | PD.SUROPNT ---
Date of Procedure 03/14/25 Pre Op Diagnosis Respiratory failure Post Op Diagnosis Respiratory failure Procedure Tracheostomy with size 8 extra long cuffed tracheostomy Findings Minimal amount of tracheal secretions Procedure Description Patient brought into the operating room in supine position. After administration of general endotracheal anesthesia, patient's neck was extended, prepped and draped in standard surgical manner. An approximately 3 cm semicircular incision was made approximately 2 fingerbreadths above the sternal notch. Dissection was carried to subcutaneous tissue and platysma was divided. Median raphae was identified and excised. The thyroid tissue overlying the trachea was divided and suture ligated on both sides. The trachea was then cleared from overlying tissue. 2 tacking sutures using 2-0 Prolene placed around the third tracheal rings on both sides. An approximately 1 cm tracheotomy was performed at the level of second tracheal ring in the was extended distally. The anesthesiologist was instructed to pull the orotracheal tube until the tip was just beyond the tracheotomy site. Once this was done a size 8 extra long cuffed tracheostomy was placed through the tracheotomy site and the cuff was inflated. The tracheostomy was then connected to the ventilator where patient was being ventilated without difficulty with normal end tidal CO2. The tracheostomy site was then suctioned with minimal amount of tracheal secretions noted. Hemostasis was adequate and satisfactory. Appropriate sterile dressings applied. The tacking sutures were secured on patient's chest with Steri-Strips. A Velcro was placed around the patient's neck to further secure the tracheostomy. Patient tolerated the procedure well. He remained hemodynamically stable and transferred to the intensive care unit. Instruments, needles and sponge counts were reported to be correct ?2. Anesthesia GETA and local Pathology / specimen None Estimated Blood Loss 5 Condition Stable Disposition ICU Surgeon Kalpesh Kinney MD Surgical Staff Operation Date: 03/14/25 13:45 Case Staff Anesthesiologist: Eyad Haro RNyarn bleaching machine operator: Aleida Boudreaux
--- NOTE | 2025-03-14 14:21 | ESPR_ITS ---
<Statement entered by Lenora John MD - 03/16/25 16:23> I evaluated the patient in the intensive care unit patient Underwent tracheostomy successfully on mechanical ventilation due to combination of factors congestive heart failure pneumonia as well as HFpEF severe respiratory failure hypoxia hypercapnia evaluated patient closely. No requiring need for any vasopressors but patient will probably require hemodynamic monitoring closely condition remains critical prognosis guarded spent more than 40 minutes going on the questions concerns and also coordination of the care evaluate the patient with PGY 3 agree with the treatment plan recommendations. Documentation for date of: 03/14/25 Subjective Subjective Interval history: Patient was examined bedside in ICU .He Got his trached by Dr Rider. No acute overnight event Exam Vital Signs Temp Pulse Resp BP Pulse Ox O2 Del Method O2 Flow Rate 99.1 F 97 23 H 79/62 L 93 L Mechanical Ventilation 5 03/14/25 12:00 03/14/25 12:00 03/13/25 19:00 03/14/25 12:00 03/14/25 12:00 03/14/25 12:00 03/10/25 11:46 FiO2 50 03/14/25 12:00 Narrative Exam GENERAL: Adult male who has tracked in place HEENT: Normocephalic, atraumatic. Pupils are equal and reactive. Oral mucosa is moist. NECK: Supple, nontender, no JVD CARDIOVASCULAR:Irregularly irregular. S1/S2. no murmur or gallop rub or extra beats. LUNGS: Clear to auscultation bilaterally with symmetrical chest rise. No laboring tachypnea or wheezing. No intercostal subcostal retraction. No rales and no rhonchi. ABDOMEN: Soft, flat, nontender to palpation, no guarding or rebound tenderness. Active and normal bowel sounds. EXTREMITIES:Moves all 4 extremities, SKIN: Warm and dry, no jaundice. Objective Labs 03/14/25 04:40 03/14/25 04:40 Labs: Laboratory Results - last 24 hr 03/14/25 03/14/25 04:25 04:40 WBC 9.9 RBC 4.34 L Hgb 12.2 L Hct 38.7 L MCV 89 MCH 28.1 MCHC 31.5 RDW Std Deviation 45.8 H Plt Count 319 D Neut % (Auto) 80 Lymph % (Auto) 8 L [place] % (Auto) 8 Eos % (Auto) 2 Baso % (Auto) 1 Neut # (Auto) 7.9 H Lymph # (Auto) 0.8 L [place] # (Auto) 0.8 Eos # (Auto) 0.2 Baso # (Auto) 0.1 Immature Gran # (Auto) 0.08 H Absolute Nucleated RBC 0.00 Immature Gran % 1 H Nucleated RBC % 0 Puncture Site Left Radial ABG pH 7.46 H ABG pCO2 50 H ABG pO2 70 L ABG HCO3 36 H ABG O2 Saturation 95 ABG Base Excess 10 H FiO2 50 Sodium 152 H Potassium 3.9 D Chloride 108 H Carbon Dioxide 32.9 H Anion Gap 11 BUN 79 H Creatinine 2.5 H Estim Creat Clear Calc 53.6 L eGFR 28 L BUN/Creatinine Ratio 32 H Glucose 202 H Calculated Osmolality 331 H Calcium 8.5 Corrected Calcium 9.6 Magnesium 2.0 Total Bilirubin 0.8 AST 32 ALT 19 Alkaline Phosphatase 98 Total Protein 4.7 L Albumin 2.6 L Globulin 2.1 L Albumin/Globulin Ratio 1.2 ABG Interpretation ABG results: 02/27/25 02/28/25 03/01/25 06:55 04:57 04:39 ABG pH 7.27 L 7.37 D 7.41 ABG pCO2 57 H 48 44 ABG pO2 101 78 L D 69 L ABG HCO3 26 28 H 28 H ABG O2 Saturation 98 95 93 ABG Base Excess -2 2 3 VBG pH VBG pCO2 VBG pO2 VBG Base Excess 03/01/25 03/01/25 03/02/25 13:15 14:52 04:25 ABG pH Cancelled 7.41 7.45 ABG pCO2 Cancelled 45 42 ABG pO2 Cancelled 53 L* 66 L ABG HCO3 Cancelled 28 H 29 H ABG O2 Saturation Cancelled 85 L 92 ABG Base Excess Cancelled 3 5 H VBG pH VBG pCO2 VBG pO2 VBG Base Excess 03/03/25 03/05/25 03/05/25 04:40 16:30 16:55 ABG pH 7.45 Cancelled 7.34 L D ABG pCO2 43 Cancelled 72 H* D ABG pO2 72 L Cancelled 83 ABG HCO3 30 H Cancelled 38 H ABG O2 Saturation 94 Cancelled 95 ABG Base Excess 5 H Cancelled 9 H VBG pH VBG pCO2 VBG pO2 VBG Base Excess 04/22/25 04/23/25 04/23/25 23:36 01:48 05:22 ABG pH 7.37 7.34 L 7.52 H D ABG pCO2 67 H 74 H* 47 D ABG pO2 150 H D 88 D 160 H D ABG HCO3 38 H 40 H 38 H ABG O2 Saturation 99 H 96 100 H ABG Base Excess 10 H 11 H 13 H VBG pH VBG pCO2 VBG pO2 VBG Base Excess 03/06/25 03/07/25 03/07/25 17:10 05:00 14:03 ABG pH 7.46 H ABG pCO2 53 H ABG pO2 65 L D ABG HCO3 38 H ABG O2 Saturation 93 ABG Base Excess 12 H VBG pH 7.50 7.52 VBG pCO2 50 47 VBG pO2 70 H 61 H VBG Base Excess 13 H 14 H 03/09/25 03/09/25 03/09/25 08:17 10:25 17:29 ABG pH 7.25 L D 7.29 L 7.29 L ABG pCO2 93 H* D 85 H* 88 H* ABG pO2 81 L 57 L* D 85 D ABG HCO3 41 H 40 H 43 H ABG O2 Saturation 95 89 L 97 ABG Base Excess 10 H 10 H 12 H VBG pH VBG pCO2 VBG pO2 VBG Base Excess 03/09/25 03/10/25 03/10/25 23:24 07:17 11:25 ABG pH 7.32 L 7.28 L 7.31 L ABG pCO2 78 H* D 90 H* D 81 H* ABG pO2 69 L 47 L* D 63 L ABG HCO3 40 H 43 H 41 H ABG O2 Saturation 94 80 L 93 ABG Base Excess 11 H 12 H 11 H VBG pH VBG pCO2 VBG pO2 VBG Base Excess 03/10/25 03/11/25 03/12/25 16:56 04:19 04:42 ABG pH 7.40 7.48 H 7.43 ABG pCO2 66 H D 54 H D 59 H ABG pO2 68 L 67 L 77 L ABG HCO3 41 H 40 H 39 H ABG O2 Saturation 94 94 96 ABG Base Excess 13 H 15 H 12 H VBG pH VBG pCO2 VBG pO2 VBG Base Excess 03/13/25 03/14/25 04:32 04:25 ABG pH 7.47 H 7.46 H ABG pCO2 53 H 50 H ABG pO2 60 L 70 L ABG HCO3 38 H 36 H ABG O2 Saturation 93 95 ABG Base Excess 13 H 10 H VBG pH VBG pCO2 VBG pO2 VBG Base Excess Quality Measures Quality Measures sepsis Current suspected stage: sepsis Possible source: pulmonary Blood cultures ordered: completed in ED Antibiotic ordered: Yes Advance care planning discussed with:: patient Assessment & Plan Assessment Current Active Medications: Generic Name Dose Route Start Last Admin Trade Name Freq PRN Reason Stop Dose Admin Acetaminophen 650 mg 03/10/25 19:17 Acetaminophen 325 Mg Tablet PO 03/29/25 09:23 Q4HR PRN fever > 100.4 Al Hydrox/Mg Hydrox/Simethicone 30 ml 02/27/25 09:24 Mg Hyd/Al Hyd/Virgilio (Maalox Reg) Susp 30 Ml Udc PO 03/29/25 09:23 Q4HR PRN Heartburn or Upset Stomach Amiodarone HCl 200 mg 03/01/25 09:00 03/14/25 10:18 Amiodarone Hcl 200 Mg Tablet PO 03/31/25 08:59 200 mg QDAY KOURTNEY Administration Dextrose 25 ml 03/03/25 08:20 Dextrose 50%-Water Inj 50 Ml Syringe IV 04/02/25 08:19 Q15MIN PRN BG 50-70 responsive npo pt Dextrose 50 ml 03/03/25 08:20 Dextrose 50%-Water Inj 50 Ml Syringe IV 04/02/25 08:19 Q15MIN PRN BG <50 OR BG <70 & pt unresponsive Glucagon 1 mg 03/03/25 08:20 Glucagon Inj 1 Mg Vial IM Q15MIN PRN BG <70, and no IV access Heparin Sodium (Porcine) 7,500 unit 03/15/25 02:00 Heparin Sod Inj 5000 Unit/Ml Vial SC 03/29/25 01:59 Q8HR KOURTNEY Cefepime HCl 1 gm/ Sodium 50 mls @ 100 mls/hr 03/11/25 21:00 03/14/25 09:42 Chloride IV 03/18/25 20:59 100 mls/hr Q12HR KOURTNEY Administration Fentanyl Citrate 2,500 mcg in 250 mls @ 2.5 mls/hr 03/12/25 13:17 Sublimaze Inj 2,500 Mcg/250 Ml Bag IV 03/15/25 15:55 .Q24H PRN PER PROTOCOL Protocol 25 MCG/HR Propofol 1,000 mg in 100 mls @ 6.801 mls/hr 03/12/25 13:18 Diprivan Ivpb IV 04/09/25 15:55 .[id number] PRN PER PROTOCOL Protocol 5 MCG/KG/MIN Dexmedetomidine/Sodium Chloride 400 mcg in 100 mls @ 11.305 mls/hr 03/12/25 14:03 03/14/25 07:54 Precedex Ivpb IV 04/11/25 14:02 Infused .[id number] PRN Titration Per PROTOCOL Protocol 0.2 MCG/KG/HR Insulin Human Lispro 0 unit 03/06/25 06:00 03/14/25 12:55 Insulin Lispro (Admelog) 1 Unit/0.01 Ml Unit SC 04/05/25 05:59 Not Given Q6H [facility] Protocol Magnesium Hydroxide 30 ml 02/27/25 09:24 Milk Of Magnesia Susp 30 Ml Udc PO 03/29/25 09:23 QDAY PRN CONSTIPATION Metoprolol Succinate 100 mg 03/03/25 21:00 03/09/25 20:53 Metoprolol Succinate Xl 25 Mg Tabcr PO 04/02/25 20:59 Not Given BID KOURTNEY Metoprolol Tartrate 5 mg 03/09/25 22:00 03/10/25 14:30 Metoprolol Tartrate Inj 1 Mg/Ml Amp 5 Ml IVP 04/08/25 21:59 Not Given Q8HR [facility] Ondansetron HCl 4 mg 03/05/25 20:46 03/09/25 03:49 Ondansetron Inj 2 Mg/Ml Inj 2 Ml IV 04/04/25 20:45 4 mg Q6HR PRN Administration NAUSEA OR VOMITING Protocol Pantoprazole Sodium 40 mg 02/27/25 11:15 03/14/25 09:42 Pantoprazole Inj 40 Mg Vial IV 03/29/25 11:14 40 mg QDAY KOURTNEY Administration Rivaroxaban 20 mg 03/04/25 17:30 03/12/25 13:27 Rivaroxaban 10 Mg Tablet PO 04/03/25 17:29 Not Given WSUPPER KOURTNEY Plan 64-year-old male with significant past medical history of hypertension, diabetes mellitus, A-fib was admitted to the ICU on 02/27/2025 after coming in with altered mental status and shortness of breath, intubated for acute hypoxic respiratory failure and had suspected obesity hypoventilation syndrome/obstructive sleep apnea/pneumonia and acute kidney injury. He was extubated on 03/03 and downgraded then re-intubated on 03/06 due to confusion and tachypneia. He was then extubated and downgraded to the floor on 03/07. On 03/10, patient again had decreased mentation on the BiPAP so was reintubated and upgraded. Cardiology has been consulted for suspected heart failure. #Right congestive heart failure with preserved EF #Severe BASIA/OHS Echo on this admission showed poor quality images secondary to the patient's body habitus so was a technically limited study. Suspect chronic right heart failure in the setting of chronic obesity hypoventilation syndrome and obstructive sleep apnea. Currently appears to be more pulmonary component to respiratory failure than cardiac. Requiring ventilation support. -Hold diuresis with bumetanide 2 mg IV BID, due to worsening creatinine and contraction alkalosis -Continue with ventilatory support -Monitor strict I&Os -Limit sodium intake 03/14/25: Will hold dirutics for now , he was given IV fluids yesterday. #Atrial fibrillation, rate controlled Patient notes positive history of afib. He had previously been on metoprolol succinate 100 mg BID. Currently appears rate-controlled in the 100s. [id number] score 4 03/14/2025:Continue Metoprolol ,xarelto held for trech ,Continue with amiodarone 200 mg qday.-Keep potassium >4.0 and mag >2.0 Rest of conditions to continue current management per primary team: #Acute hypoxic respiratory failure #Morbid obesity #Community acquired pneumonia #Elevated LFTs, resolved #Hyperbilirubinemia, resolved #History of type 2 diabetes #Lactic acidosis, resolved #KENIA on CKD Discussed the patient with my attending Dr John, Shaina Newell MD,PGY-3
--- NOTE | 2025-03-14 15:52 | PC.SS ---
Update: Patient trached today. Possible PEG tube placement tomorrow. Patient is not receiving pressor support. Patient off sedation. Tube feedings on hold. Hemoglobin stable.
--- NOTE | 2025-03-14 16:17 | PC.DIETICIAN ---
Nutrition prescription (updated) When indicated, consider: Glucerna 1.2 at 20 ml/hr via NG tube by pump. Advance 10 ml every 8 hrs to goal rate of 70 ml/hr x 24 hrs. If no IV fluids, water flushes of 25 ml/hr (or per MD).
[2025-03-14] MEDS: METOPROLOL TARTRATE INJ 1 MG/ML AMP 5 ML 5 MG IVP (16:30)
[2025-03-14] MEDS: ALBUMIN HUMAN 25% IVPB 25 GM/100 ML BTL IV (17:58)
[2025-03-14] MEDS: INSULIN LISPRO (AdmeLOG) 1 UNIT/0.01 ML UNIT SC (18:14)
[2025-03-14] MEDS: MORPHINE SULF INJ 10 MG/ML VIAL IVP (20:31)
[2025-03-14] MEDS: METOPROLOL TARTRATE 25 MG TABLET 100 MG PO (20:33)
[2025-03-15] VITALS (34 sets, daily range): BP systolic 77–181; BP diastolic 52–119; PULSE 79–126; RESP 18–27; TEMP 35.9–37.1; O2SAT 92–100
[2025-03-15] MEDS: INSULIN LISPRO (AdmeLOG) 1 UNIT/0.01 ML UNIT SC ×4 (00:28→17:25)
[2025-03-15] MEDS: HEPARIN SOD INJ 5000 UNIT/ML VIAL 7500 UNIT SC ×4 (02:32→21:14)
[2025-03-15 04:58] LABS: Base Excess 9 (-3-3); HCO3 35 mEq/L (20-26); Inspired Oxygen, FIO2 60 %; O2 Saturation 95 % (91-98); PCO2 56 mmHg (32.0-48.0); PO2 69 mmHg (83-108); pH, Arterial 7.41 (7.35-7.45)
[2025-03-15 05:00] LABS: Allen Test Performed/OK; Puncture Site Left Radial
[2025-03-15 06:17] LABS: Basophils # (Auto) 0.1 Thou/mm3 (0.0-0.2); Basophils % (Auto) 1 % (0-2.5); Eosinophils # (Auto) 0.1 Thou/mm3 (0.0-0.5); Eosinophils % (Auto) 1 % (0-10); Hematocrit 39.1 % (41.0-53.0); Hemoglobin 12.1 g/dL (13.5-16.0); Immature Granulocytes % (Auto) 1 % (0-0); Immature Granulocytes Auto 0.09 Thou/mm3 (0.00-0.00); Lymphocytes % (Auto) 8 % (10-50); Mean Corpuscular HGB Conc 30.9 g/dl (31.0-37.0); Mean Corpuscular Hemoglobin 28.3 pg (25.0-35.0); Mean Corpuscular Volume 92 fL (80-100); Monocytes % (Auto) 8 % (0-12); Neutrophils # (Auto) 10.2 Thou/mm3 (1.8-7.7); Neutrophils % (Auto) 82 % (37-80); Nucleated Red Blood Cell % 0 /100 WBC (0); Platelet Count 346 Thou/mm3 (140-440); RDW Standard Deviation 47.7 fL (35.1-43.9); Red Blood Count 4.27 Miln/mm3 (4.50-5.90); White Blood Count 12.5 Thou/mm3 (3.8-10.6)
[2025-03-15 06:46] LABS: INR 1.3 (0.9-1.3); Prothrombin Time 13.9 Seconds (9.0-12.2)
[2025-03-15 06:56] LABS: Alanine Aminotransferase 20 U/L (10-49); Albumin/Globulin Ratio 1.1 (1.2-2.2); Alkaline Phosphatase 108 U/L (46-116); Anion Gap 12 (7-16); Aspartate Amino Transferase 34 U/L (0-34); BUN/Creatinine Ratio 28 Ratio (12-20); Blood Urea Nitrogen 76 mg/dL (9-23); Calcium (Corrected) 9.8 mg/dL (8.5-10.1); Carbon Dioxide 33.5 mMol/L (20.0-31.0); Chloride 104 mMol/L (98-107); Creatinine (Component) 2.7 mg/dL (0.6-1.3); Globulin 2.8 gm/dL (2.3-3.5); Glucose 195 mg/dL (74-106); Magnesium 1.8 mg/dL (1.6-2.6); Osmolality,Calculated 323 (275-295); Potassium 3.6 mMol/L (3.4-5.1); Sodium 149 mMol/L (136-145); Total Protein 5.8 gm/dL (5.7-8.2); eGFR 25 See Note
[2025-03-15] MEDS: METOPROLOL TARTRATE 25 MG TABLET 100 MG PO ×2 (08:01→21:14)
[2025-03-15] MEDS: AMIODARONE HCL 200 MG TABLET PO (08:01)
[2025-03-15] MEDS: CEFEPIME INJ 1 GM in SODIUM CHLORIDE 0.9% (Popper) 50 ML IV ×2 (08:02→21:12)
[2025-03-15] MEDS: ALBUMIN HUMAN 25% IVPB 25 GM/100 ML BTL IV (08:02)
[2025-03-15] MEDS: PANTOPRAZOLE INJ 40 MG VIAL IV (08:03)
[2025-03-15] MEDS: BUMETANIDE INJ 0.25 MG/ML VIAL 4 ML 3 MG IVP (10:46)
--- NOTE | 2025-03-15 10:48 | PD.SURPROG ---
Documentation for date of: 03/15/25 Subjective Subjective Narrative: Patient is seen and examined. No acute overnight events Exam Vital Signs Temp Pulse Resp BP Pulse Ox O2 Del Method O2 Flow Rate 97.0 F 79 22 H 119/88 H 95 Mechanical Ventilation 5 03/15/25 08:00 03/15/25 10:00 03/14/25 15:01 03/15/25 10:00 03/15/25 10:00 03/15/25 08:00 03/10/25 11:46 FiO2 60 03/15/25 10:00 Constitutional Constitutional: no acute distress Routine Neck Exam Comments: Tracheostomy in place and intact without bleeding or drainage Assessment & Plan Assessment Additional comments: Postop day #1 status post tracheostomy Plan Continue routine trach care. Please call for any question Procedures Procedures Tracheostomy with size 8 extra long cuffed tracheostomy
[2025-03-15] MEDS: BUMETANIDE INJ 20 MG in CONTAINER,EMPTY 50 ML 1 BAG 4 MG IV (10:51)
--- NOTE | 2025-03-15 11:03 | XR_ITS ---
Examination: Retroperitoneal ultrasound, complete Technique: Multiple high resolution grayscale images of the retroperitoneum obtained, including kidneys and bladder. Exam date and time:March 15, 2025 1410 hours INDICATIONS: Acute renal insufficiency on laboratory examination this week FINDINGS: Morbid obesity severely limits this study there is no diagnostic visualization of the kidneys No bladder mass bladder prevoid volume 422 cc IMPRESSION: Severely limited study
--- NOTE | 2025-03-15 12:48 | XR_ITS ---
Examination: AP chest single view TECHNIQUE: AP portable chest single view Exam date and time: March 15, 2025 1322 hours INDICATIONS: [place]-Mary catheter placement attempt FINDINGS: The film is severely overpenetrated No gross pneumothorax Tracheal tube satisfactory position IMPRESSION: Nondiagnostic study, repeat
--- NOTE | 2025-03-15 13:13 | ESPR_ITS ---
<Statement entered by Lenora John MD - 03/16/25 16:21> I personally examined the patient intensive care remains critical condition Manquin-Mary catheter was performed by commercial coordinator PA pressures are elevated wedge pressure elevated patient has biventricular heart failure with left heart failure right heart failure elevated central pressures aggressive IV diuretic Bumex will be given patient remained on ventilator tracheostomy performed and patient's still on ventilator management and hemodynamically stable tolerating diuretics well discussed with commercial coordinator and coordination of care with commercial coordinator I agree with the documentation as per PGY 3 as documented treatment plan recommendation discussed extensively with resident team. Documentation for date of: 03/15/25 Subjective Subjective Interval history: Patient was examined in the afternoon in the ICU,Manquin catheter was placed by ICU team which showed PA pressure of more than 30s and wedge pressure was also high . started him on bumex drip . Exam Vital Signs Temp Pulse Resp BP Pulse Ox O2 Del Method O2 Flow Rate 97.0 F 91 22 H 119/88 H 95 Mechanical Ventilation 5 03/15/25 08:00 03/15/25 10:46 03/14/25 15:01 03/15/25 10:46 03/15/25 10:00 03/15/25 08:00 03/10/25 11:46 FiO2 60 03/15/25 10:00 Narrative Exam GENERAL: Adult male who has tracked in place HEENT: Normocephalic, atraumatic. Pupils are equal and reactive. Oral mucosa is moist. NECK: Supple, nontender, no JVD CARDIOVASCULAR:Irregularly irregular. S1/S2. no murmur or gallop rub or extra beats. LUNGS: Clear to auscultation bilaterally with symmetrical chest rise. No laboring tachypnea or wheezing. No intercostal subcostal retraction. No rales and no rhonchi. ABDOMEN: Soft, flat, nontender to palpation, no guarding or rebound tenderness. Active and normal bowel sounds. EXTREMITIES:Moves all 4 extremities, SKIN: Warm and dry, no jaundice.generalized anasarca Objective Labs 03/15/25 06:02 03/15/25 06:02 Labs: Laboratory Results - last 24 hr 03/15/25 03/15/25 04:37 06:02 WBC 12.5 H RBC 4.27 L Hgb 12.1 L Hct 39.1 L MCV 92 MCH 28.3 MCHC 30.9 L RDW Std Deviation 47.7 H Plt Count 346 Neut % (Auto) 82 H Lymph % (Auto) 8 L [place] % (Auto) 8 Eos % (Auto) 1 Baso % (Auto) 1 Neut # (Auto) 10.2 H Lymph # (Auto) 1.0 [place] # (Auto) 1.0 H Eos # (Auto) 0.1 Baso # (Auto) 0.1 Immature Gran # (Auto) 0.09 H Absolute Nucleated RBC 0.00 Immature Gran % 1 H Nucleated RBC % 0 PT 13.9 H INR 1.3 Puncture Site Left Radial ABG pH 7.41 ABG pCO2 56 H ABG pO2 69 L ABG HCO3 35 H ABG O2 Saturation 95 ABG Base Excess 9 H FiO2 60 Sodium 149 H Potassium 3.6 Chloride 104 Carbon Dioxide 33.5 H Anion Gap 12 BUN 76 H Creatinine 2.7 H Estim Creat Clear Calc 51.0 L eGFR 25 L BUN/Creatinine Ratio 28 H Glucose 195 H Calculated Osmolality 323 H Calcium 9.0 Corrected Calcium 9.8 Magnesium 1.8 Total Bilirubin 1.0 AST 34 ALT 20 Alkaline Phosphatase 108 Total Protein 5.8 Albumin 3.0 L Globulin 2.8 Albumin/Globulin Ratio 1.1 L ABG Interpretation ABG results: 02/27/25 02/28/25 03/01/25 06:55 04:57 04:39 ABG pH 7.27 L 7.37 D 7.41 ABG pCO2 57 H 48 44 ABG pO2 101 78 L D 69 L ABG HCO3 26 28 H 28 H ABG O2 Saturation 98 95 93 ABG Base Excess -2 2 3 VBG pH VBG pCO2 VBG pO2 VBG Base Excess 03/01/25 03/01/25 03/02/25 13:15 14:52 04:25 ABG pH Cancelled 7.41 7.45 ABG pCO2 Cancelled 45 42 ABG pO2 Cancelled 53 L* 66 L ABG HCO3 Cancelled 28 H 29 H ABG O2 Saturation Cancelled 85 L 92 ABG Base Excess Cancelled 3 5 H VBG pH VBG pCO2 VBG pO2 VBG Base Excess 03/03/25 03/05/25 03/05/25 04:40 16:30 16:55 ABG pH 7.45 Cancelled 7.34 L D ABG pCO2 43 Cancelled 72 H* D ABG pO2 72 L Cancelled 83 ABG HCO3 30 H Cancelled 38 H ABG O2 Saturation 94 Cancelled 95 ABG Base Excess 5 H Cancelled 9 H VBG pH VBG pCO2 VBG pO2 VBG Base Excess 03/05/25 03/06/25 03/06/25 23:36 01:48 05:22 ABG pH 7.37 7.34 L 7.52 H D ABG pCO2 67 H 74 H* 47 D ABG pO2 150 H D 88 D 160 H D ABG HCO3 38 H 40 H 38 H ABG O2 Saturation 99 H 96 100 H ABG Base Excess 10 H 11 H 13 H VBG pH VBG pCO2 VBG pO2 VBG Base Excess 03/06/25 03/07/25 03/07/25 17:10 05:00 14:03 ABG pH 7.46 H ABG pCO2 53 H ABG pO2 65 L D ABG HCO3 38 H ABG O2 Saturation 93 ABG Base Excess 12 H VBG pH 7.50 7.52 VBG pCO2 50 47 VBG pO2 70 H 61 H VBG Base Excess 13 H 14 H 03/09/25 03/09/25 03/09/25 08:17 10:25 17:29 ABG pH 7.25 L D 7.29 L 7.29 L ABG pCO2 93 H* D 85 H* 88 H* ABG pO2 81 L 57 L* D 85 D ABG HCO3 41 H 40 H 43 H ABG O2 Saturation 95 89 L 97 ABG Base Excess 10 H 10 H 12 H VBG pH VBG pCO2 VBG pO2 VBG Base Excess 03/09/25 03/10/25 03/10/25 23:24 07:17 11:25 ABG pH 7.32 L 7.28 L 7.31 L ABG pCO2 78 H* D 90 H* D 81 H* ABG pO2 69 L 47 L* D 63 L ABG HCO3 40 H 43 H 41 H ABG O2 Saturation 94 80 L 93 ABG Base Excess 11 H 12 H 11 H VBG pH VBG pCO2 VBG pO2 VBG Base Excess 03/10/25 03/11/25 03/12/25 16:56 04:19 04:42 ABG pH 7.40 7.48 H 7.43 ABG pCO2 66 H D 54 H D 59 H ABG pO2 68 L 67 L 77 L ABG HCO3 41 H 40 H 39 H ABG O2 Saturation 94 94 96 ABG Base Excess 13 H 15 H 12 H VBG pH VBG pCO2 VBG pO2 VBG Base Excess 03/13/25 03/14/25 03/15/25 04:32 04:25 04:37 ABG pH 7.47 H 7.46 H 7.41 ABG pCO2 53 H 50 H 56 H ABG pO2 60 L 70 L 69 L ABG HCO3 38 H 36 H 35 H ABG O2 Saturation 93 95 95 ABG Base Excess 13 H 10 H 9 H VBG pH VBG pCO2 VBG pO2 VBG Base Excess Quality Measures Quality Measures sepsis Current suspected stage: sepsis Possible source: pulmonary Blood cultures ordered: completed in ED Antibiotic ordered: Yes Advance care planning discussed with:: patient Assessment & Plan Assessment Current Active Medications: Generic Name Dose Route Start Last Admin Trade Name Freq PRN Reason Stop Dose Admin Acetaminophen 650 mg 03/10/25 19:17 Acetaminophen 325 Mg Tablet PO 03/29/25 09:23 Q4HR PRN fever > 100.4 Al Hydrox/Mg Hydrox/Simethicone 30 ml 02/27/25 09:24 Mg Hyd/Al Hyd/Virgilio (Maalox Reg) Susp 30 Ml Udc PO 03/29/25 09:23 Q4HR PRN Heartburn or Upset Stomach Amiodarone HCl 200 mg 03/01/25 09:00 03/15/25 08:01 Amiodarone Hcl 200 Mg Tablet PO 03/31/25 08:59 200 mg QDAY KOURTNEY Administration Dextrose 25 ml 03/03/25 08:20 Dextrose 50%-Water Inj 50 Ml Syringe IV 04/02/25 08:19 Q15MIN PRN BG 50-70 responsive npo pt Dextrose 50 ml 03/03/25 08:20 Dextrose 50%-Water Inj 50 Ml Syringe IV 04/02/25 08:19 Q15MIN PRN BG <50 OR BG <70 & pt unresponsive Glucagon 1 mg 03/03/25 08:20 Glucagon Inj 1 Mg Vial IM Q15MIN PRN BG <70, and no IV access Heparin Sodium (Porcine) 7,500 unit 03/15/25 02:00 03/15/25 13:06 Heparin Sod Inj 5000 Unit/Ml Vial SC 03/29/25 01:59 7,500 unit Q8HR KOURTNEY Administration Cefepime HCl 1 gm/ Sodium 50 mls @ 100 mls/hr 03/11/25 21:00 03/15/25 08:02 Chloride IV 03/18/25 20:59 100 mls/hr Q12HR KOURTNYE Administration Fentanyl Citrate 2,500 mcg in 250 mls @ 2.5 mls/hr 03/12/25 13:17 Sublimaze Inj 2,500 Mcg/250 Ml Bag IV 03/15/25 15:55 .Q24H PRN PER PROTOCOL Protocol 25 MCG/HR Propofol 1,000 mg in 100 mls @ 6.801 mls/hr 03/12/25 13:18 Diprivan Ivpb IV 04/09/25 15:55 .[id number] PRN PER PROTOCOL Protocol 5 MCG/KG/MIN Dexmedetomidine/Sodium Chloride 400 mcg in 100 mls @ 11.305 mls/hr 03/12/25 14:03 03/14/25 07:54 Precedex Ivpb IV 04/11/25 14:02 Infused .Q8H51M PRN Titration Per PROTOCOL Protocol 0.2 MCG/KG/HR Bumetanide 20 mg/ IV 80 mls @ 4 mls/hr 03/15/25 10:31 03/15/25 10:51 Miscellaneous Supplies IV 03/16/25 06:13 1 mg/hr .Q20H KOURTNEY 4 mls/hr Administration 1 MG/HR Insulin Human Lispro 0 unit 03/06/25 06:00 03/15/25 13:04 Insulin Lispro (Admelog) 1 Unit/0.01 Ml Unit SC 04/05/25 05:59 1 unit Q6H KOURTNEY Administration Protocol Magnesium Hydroxide 30 ml 02/27/25 09:24 Milk Of Magnesia Susp 30 Ml Udc PO 03/29/25 09:23 QDAY PRN CONSTIPATION Metoprolol Tartrate 100 mg 03/14/25 21:00 03/15/25 08:01 Metoprolol Tartrate 25 Mg Tablet PO 04/13/25 20:59 100 mg BID KOURTNEY Administration Ondansetron HCl 4 mg 03/05/25 20:46 03/09/25 03:49 Ondansetron Inj 2 Mg/Ml Inj 2 Ml IV 04/04/25 20:45 4 mg Q6HR PRN Administration NAUSEA OR VOMITING Protocol Pantoprazole Sodium 40 mg 02/27/25 11:15 03/15/25 08:03 Pantoprazole Inj 40 Mg Vial IV 03/29/25 11:14 40 mg QDAY KOURTNEY Administration Rivaroxaban 20 mg 03/04/25 17:30 03/12/25 13:27 Rivaroxaban 10 Mg Tablet PO 04/03/25 17:29 Not Given WSUPPER KOURTNEY Plan 64-year-old male with significant past medical history of hypertension, diabetes mellitus, A-fib was admitted to the ICU on 02/27/2025 after coming in with altered mental status and shortness of breath, intubated for acute hypoxic respiratory failure and had suspected obesity hypoventilation syndrome/obstructive sleep apnea/pneumonia and acute kidney injury. He was extubated on 03/03 and downgraded then re-intubated on 03/06 due to confusion and tachypneia. He was then extubated and downgraded to the floor on 03/07. On 03/10, patient again had decreased mentation on the BiPAP so was reintubated and upgraded. Cardiology has been consulted for suspected heart failure. #Right congestive heart failure with preserved EF #Severe BASIA/OHS Echo on this admission showed poor quality images secondary to the patient's body habitus so was a technically limited study. Suspect chronic right heart failure in the setting of chronic obesity hypoventilation syndrome and obstructive sleep apnea. Currently appears to be more pulmonary component to respiratory failure than cardiac. Requiring ventilation support. -Hold diuresis with bumetanide 2 mg IV BID, due to worsening creatinine and contraction alkalosis -Continue with ventilatory support -Monitor strict I&Os -Limit sodium intake -Echo 02/27/25: IVC appears to be dilated and also estimated RVSP also appears to be at least moderately elevated at 55 mmHg. 03/14/25: Will hold dirutics for now , he was given IV fluids yesterday. 03/15/25 : Manquin catheter was placed by ICU team which showed PA pressure of more than 30s and wedge pressure was also high . started him on bumex drip . will continue the albumin . he is getting his peg tube today #Atrial fibrillation, rate controlled Patient notes positive history of afib. He had previously been on metoprolol succinate 100 mg BID. Currently appears rate-controlled in the 100s. CHADS-VASc score 4 03/14/2025:Continue Metoprolol ,xarelto held for trech ,Continue with amiodarone 200 mg qday.-Keep potassium >4.0 and mag >2.0 Rest of conditions to continue current management per primary team: #Acute hypoxic respiratory failure s/ p trech #Morbid obesity #Community acquired pneumonia #Elevated LFTs, resolved #Hyperbilirubinemia, resolved #History of type 2 diabetes #Lactic acidosis, resolved #KENIA on CKD Discussed the patient with my attending Shaina Vega MD,PGY-3
--- NOTE | 2025-03-15 13:15 | PD.RESCONSUL ---
[facility] Data of Consult Consult date: 03/15/25 Requesting Physician: Pavel Mendoza MD Admitting Provider: Angelique Maxwell MD Attending Provider: Pavel Mendoza MD Primary Care Provider: Physician No Primary/Family Consult Narrative Reason for consult: Worsening renal function History of present illness: Mr. Ortega is a 64-year-old male with past medical history of DM2, hypertension, and A-fib Morbid obesity by BMIwas admitted to the ICU on 02/27/2025 after coming to the ED with complaints of altered mental status and shortness of breath. Patient was intubated in the ED therefore most of the history was taken from chart review and from the parents who are at bedside. EMS found the patient on the floor and he was saturating in the 70s even on high flow nasal cannula. Given his hypoxia patient was intubated in the ED. Patient spiked a fever while in the ED and he became hypotensive unresponsive to IV fluids therefore he was placed on vasopressors. During course of hospitalization patient had decreasing kidney function, patient notably edematous and has vascular congestion on x-ray, therefore was treated with Bumex. Despite diuresis therapy, patient kidney function continued to worsen, diuresis positive patient given free water flushes. Patient has had notably low albumin, ICU team recently started patient on albumin but not at the same time as diuretics. Nephrology was consulted due to worsening kidney function. Tracheostomy placedYesterday. Labs today show WBC 12.5, hemoglobin 12.1, platelets 346. Sodium 149, potassium 3.6, chloride 104, bicarb 33.5. BUN 76, creatinine 2.7, EGFR 25. Hemoglobin A1c 7.6%. cc:: cc: Pavel Mendoza MD Review of Systems Review of Systems ROS Unobtainable: due to endotracheal tube Past Medical History Past Medical History CARDIAC: Positive Hypertension; Negative Congestive Heart Failure RESPIRATORY: Negative Chronic Obstructive Pulmonary Disease (COPD) GENITOURINARY: Negative Renal Disease ENDOCRINE: Positive Diabetes Mellitus Type 2; Negative Diabetes Mellitus Type 1 Social History SMOKING STATUS: Never smoker Past Medical History Comments PMH COMMENT: PMH: DM2, hypertension, and A-fib Social Hx: Denies any smoking, drugs, admits social drinking Medications: Amlodipine, losartan, glipizide, metformin, metoprolol succinate, gabapentin, and tramadol Exam Vital Signs Temp Pulse Resp BP Pulse Ox O2 Del Method O2 Flow Rate 97.0 F 91 22 H 119/88 H 95 Mechanical Ventilation 5 03/15/25 08:00 03/15/25 10:46 03/14/25 15:01 03/15/25 10:46 03/15/25 10:00 03/15/25 08:00 03/10/25 11:46 FiO2 60 03/15/25 10:00 Narrative Exam PE: Gen: Well-developed and well-nourished. Obese. HEENT: NCAT, PERRLA, EOMI, MMM, anicteric conjunctivae. CVS: normal S1 and S2. RRR. No M/R/G. Resp: CTA B/L. No rhonchi, rales, crackles or wheezing. Poor lung sounds due to body habitus. Coarse due to ventilator. Abd: soft, non-tender, non-distended. MSK: Good ROM in BUE & BLE. No rash. Diffuse 3+ pitting edema in all extremities. Lower extremities tense due to edema. Neuro: CN II-XII grossly intact. Tracheostomy in place. Results Labs 03/15/25 06:02 03/15/25 06:02 Labs: Short CBC 03/15/25 Range/Units 06:02 WBC 12.5 H (3.8-10.6) Thou/mm3 Hgb 12.1 L (13.5-16.0) g/dL Hct 39.1 L (41.0-53.0) % Plt Count 346 (140-440) Thou/mm3 BMP 03/15/25 06:02 Sodium 149 H Potassium 3.6 Chloride 104 Carbon Dioxide 33.5 H BUN 76 H Creatinine 2.7 H Glucose 195 H Calcium 9.0 Liver Function 03/15/25 Range/Units 06:02 Total Bilirubin 1.0 (0.3-1.2) mg/dL AST 34 (0-34) U/L ALT 20 (10-49) U/L Alkaline Phosphatase 108 (46-116) U/L Albumin 3.0 L (3.4-4.8) gm/dL ABG Interpretation ABG results: 02/27/25 02/28/25 03/01/25 06:55 04:57 04:39 ABG pH 7.27 L 7.37 D 7.41 ABG pCO2 57 H 48 44 ABG pO2 101 78 L D 69 L ABG HCO3 26 28 H 28 H ABG O2 Saturation 98 95 93 ABG Base Excess -2 2 3 VBG pH VBG pCO2 VBG pO2 VBG Base Excess 03/01/25 03/01/25 03/02/25 13:15 14:52 04:25 ABG pH Cancelled 7.41 7.45 ABG pCO2 Cancelled 45 42 ABG pO2 Cancelled 53 L* 66 L ABG HCO3 Cancelled 28 H 29 H ABG O2 Saturation Cancelled 85 L 92 ABG Base Excess Cancelled 3 5 H VBG pH VBG pCO2 VBG pO2 VBG Base Excess 03/03/25 03/05/25 03/05/25 04:40 16:30 16:55 ABG pH 7.45 Cancelled 7.34 L D ABG pCO2 43 Cancelled 72 H* D ABG pO2 72 L Cancelled 83 ABG HCO3 30 H Cancelled 38 H ABG O2 Saturation 94 Cancelled 95 ABG Base Excess 5 H Cancelled 9 H VBG pH VBG pCO2 VBG pO2 VBG Base Excess 03/05/25 03/06/25 03/06/25 23:36 01:48 05:22 ABG pH 7.37 7.34 L 7.52 H D ABG pCO2 67 H 74 H* 47 D ABG pO2 150 H D 88 D 160 H D ABG HCO3 38 H 40 H 38 H ABG O2 Saturation 99 H 96 100 H ABG Base Excess 10 H 11 H 13 H VBG pH VBG pCO2 VBG pO2 VBG Base Excess 03/06/25 03/07/25 03/07/25 17:10 05:00 14:03 ABG pH 7.46 H ABG pCO2 53 H ABG pO2 65 L D ABG HCO3 38 H ABG O2 Saturation 93 ABG Base Excess 12 H VBG pH 7.50 7.52 VBG pCO2 50 47 VBG pO2 70 H 61 H VBG Base Excess 13 H 14 H 03/09/25 03/09/25 03/09/25 08:17 10:25 17:29 ABG pH 7.25 L D 7.29 L 7.29 L ABG pCO2 93 H* D 85 H* 88 H* ABG pO2 81 L 57 L* D 85 D ABG HCO3 41 H 40 H 43 H ABG O2 Saturation 95 89 L 97 ABG Base Excess 10 H 10 H 12 H VBG pH VBG pCO2 VBG pO2 VBG Base Excess 03/09/25 03/10/25 03/10/25 23:24 07:17 11:25 ABG pH 7.32 L 7.28 L 7.31 L ABG pCO2 78 H* D 90 H* D 81 H* ABG pO2 69 L 47 L* D 63 L ABG HCO3 40 H 43 H 41 H ABG O2 Saturation 94 80 L 93 ABG Base Excess 11 H 12 H 11 H VBG pH VBG pCO2 VBG pO2 VBG Base Excess 03/10/25 03/11/25 03/12/25 16:56 04:19 04:42 ABG pH 7.40 7.48 H 7.43 ABG pCO2 66 H D 54 H D 59 H ABG pO2 68 L 67 L 77 L ABG HCO3 41 H 40 H 39 H ABG O2 Saturation 94 94 96 ABG Base Excess 13 H 15 H 12 H VBG pH VBG pCO2 VBG pO2 VBG Base Excess 03/13/25 03/14/25 03/15/25 04:32 04:25 04:37 ABG pH 7.47 H 7.46 H 7.41 ABG pCO2 53 H 50 H 56 H ABG pO2 60 L 70 L 69 L ABG HCO3 38 H 36 H 35 H ABG O2 Saturation 93 95 95 ABG Base Excess 13 H 10 H 9 H VBG pH VBG pCO2 VBG pO2 VBG Base Excess Quality Measures Quality Measures sepsis Current suspected stage: sepsis Possible source: pulmonary Blood cultures ordered: completed in ED Antibiotic ordered: Yes Advance care planning discussed with:: patient Medications Home Medications and Allergies Home Medications ?Medication ?Instructions ?Recorded ?Confirmed ?Type amlodipine 10 mg tablet 10 mg PO 1XD 02/27/25 02/27/25 History gabapentin 600 mg tablet 600 mg PO 3XD 02/27/25 02/27/25 History glipizide 10 mg tablet 10 mg PO 1XD 02/27/25 02/27/25 History losartan 25 mg tablet 25 mg PO 1XD 02/27/25 02/27/25 History metformin 1,000 mg tablet 1,000 mg PO 2XD 02/27/25 02/27/25 History metoprolol succinate 100 mg 100 mg PO 2XD 02/27/25 02/27/25 History tablet,extended release 24 hr tramadol 50 mg tablet 50 mg PO 3XD 02/27/25 02/27/25 History Allergies Allergy/AdvReac Type Severity Reaction Status Date / Time No Known Allergies Allergy Verified 02/27/25 06:45 Visit Medications Acetaminophen (Acetaminophen 325 Mg Tablet) 650 mg PO Q4HR PRN PRN Reason: fever > 100.4 Stop: 03/29/25 09:23 Al Hydrox/Mg Hydrox/Simethicone (Mg Hyd/Al Hyd/Virgilio (Maalox Reg) Susp 30 Ml Udc) 30 ml PO Q4HR PRN PRN Reason: Heartburn or Upset Stomach Stop: 03/29/25 09:23 Amiodarone HCl (Amiodarone Hcl 200 Mg Tablet) 200 mg PO QDAY [facility] Stop: 03/31/25 08:59 Last Admin: 03/15/25 08:01 Dose: 200 mg Dextrose (Dextrose 50%-Water Inj 50 Ml Syringe) 25 ml IV Q15MIN PRN PRN Reason: BG 50-70 responsive npo pt Stop: 04/02/25 08:19 Dextrose (Dextrose 50%-Water Inj 50 Ml Syringe) 50 ml IV Q15MIN PRN PRN Reason: BG <50 OR BG <70 & pt unresponsive Stop: 04/02/25 08:19 Glucagon (Glucagon Inj 1 Mg Vial) 1 mg IM Q15MIN PRN PRN Reason: BG <70, and no IV access Heparin Sodium (Porcine) (Heparin Sod Inj 5000 Unit/Ml Vial) 7,500 unit SC Q8HR [facility] Stop: 03/29/25 01:59 Last Admin: 03/15/25 13:06 Dose: 7,500 unit Cefepime HCl 1 gm/ Sodium (Chloride) 50 mls @ 100 mls/hr IV Q12HR [facility] Stop: 03/18/25 20:59 Last Admin: 03/15/25 08:02 Dose: 100 mls/hr Fentanyl Citrate (Sublimaze Inj 2,500 Mcg/250 Ml Bag) 2,500 mcg in 250 mls @ 2.5 mls/hr IV .Q24H PRN; Protocol PRN Reason: PER PROTOCOL Stop: 03/15/25 15:55 Propofol (Diprivan Ivpb) 1,000 mg in 100 mls @ 6.801 mls/hr IV .[id number] PRN; Protocol PRN Reason: PER PROTOCOL Stop: 04/09/25 15:55 Dexmedetomidine/Sodium Chloride (Precedex Ivpb) 400 mcg in 100 mls @ 11.305 mls/hr IV .Q8H51M PRN; Protocol PRN Reason: Per PROTOCOL Stop: 04/11/25 14:02 Last Titration: 03/14/25 07:54 Dose: Infused Bumetanide 20 mg/ IV (Miscellaneous Supplies) 80 mls @ 4 mls/hr IV .Q20H [facility] Stop: 03/16/25 06:13 Last Admin: 03/15/25 10:51 Dose: 1 mg/hr, 4 mls/hr Insulin Human Lispro (Insulin Lispro (Admelog) 1 Unit/0.01 Ml Unit) 0 unit SC Q6H [facility]; Protocol Stop: 04/05/25 05:59 Last Admin: 03/15/25 13:04 Dose: 1 unit Magnesium Hydroxide (Milk Of Magnesia Susp 30 Ml Udc) 30 ml PO QDAY PRN PRN Reason: CONSTIPATION Stop: 03/29/25 09:23 Metoprolol Tartrate (Metoprolol Tartrate 25 Mg Tablet) 100 mg PO BID [facility] Stop: 04/13/25 20:59 Last Admin: 03/15/25 08:01 Dose: 100 mg Ondansetron HCl (Ondansetron Inj 2 Mg/Ml Inj 2 Ml) 4 mg IV Q6HR PRN; Protocol PRN Reason: NAUSEA OR VOMITING Stop: 04/04/25 20:45 Last Admin: 03/09/25 03:49 Dose: 4 mg Pantoprazole Sodium (Pantoprazole Inj 40 Mg Vial) 40 mg IV QDAY [facility] Stop: 03/29/25 11:14 Last Admin: 03/15/25 08:03 Dose: 40 mg Rivaroxaban (Rivaroxaban 10 Mg Tablet) 20 mg PO WSUPPER [facility] Stop: 04/03/25 17:29 Last Admin: 03/12/25 13:27 Dose: Not Given Discontinued Medications Acetaminophen (Acetaminophen 325 Mg Tablet) 650 mg PO Q4HR PRN PRN Reason: PAIN SCALE 1-3 (mild Stop: 03/29/25 09:23 Acetaminophen (Acetaminophen Supp 650 Mg Supp) 650 mg [place] Q4HR PRN PRN Reason: PAIN SCALE 1-3 (mild Stop: 03/29/25 09:23 Albuterol/Ipratropium (Albuterol/Ipratropium (Duoneb) Rt Gloria 3 Ml Nebu) 3 ml INH X1 ONE Stop: 03/05/25 23:11 Last Admin: 03/05/25 23:50 Dose: 3 ml Bumetanide (Bumetanide Inj 0.25 Mg/Ml Vial 4 Ml) 1 mg IV X1 ONE Stop: 02/27/25 21:42 Last Admin: 02/27/25 22:11 Dose: 1 mg Bumetanide (Bumetanide Inj 0.25 Mg/Ml Vial 4 Ml) 2 mg IVP BID [facility] Stop: 04/03/25 08:59 Last Admin: 03/05/25 09:51 Dose: 2 mg Bumetanide (Bumetanide Inj 0.25 Mg/Ml Vial 4 Ml) 1 mg IVP BID [facility] Stop: 04/04/25 20:59 Bumetanide (Bumetanide Inj 0.25 Mg/Ml Vial 4 Ml) 1 mg IVP BID [facility] Stop: 04/06/25 08:59 Last Admin: 03/08/25 20:16 Dose: 1 mg Bumetanide (Bumetanide Inj 0.25 Mg/Ml Vial 4 Ml) 1 mg IVP BID [facility] Stop: 04/10/25 15:19 Last Admin: 03/12/25 08:01 Dose: 1 mg Bumetanide (Bumetanide Inj 0.25 Mg/Ml Vial 4 Ml) 1 mg IVP QDAY [facility] Stop: 04/14/25 10:14 Bumetanide (Bumetanide Inj 0.25 Mg/Ml Vial 4 Ml) 3 mg IVP X1 ONE Stop: 03/15/25 10:23 Last Admin: 03/15/25 10:46 Dose: 3 mg Diphenhydramine HCl (Diphenhydramine Elix 25 Mg/10 Ml Udc) 12.5 mg PO X1 ONE Stop: 03/05/25 00:34 Last Admin: 03/05/25 01:30 Dose: Not Given Enoxaparin Sodium (Enoxaparin Sod Inj 40 Mg/0.4 Ml Syringe) 40 mg SC QDAY [facility] Stop: 03/14/25 08:59 Enoxaparin Sodium (Enoxaparin Sod Inj 40 Mg/0.4 Ml Syringe) 40 mg SC Q12HR [facility] Stop: 03/13/25 20:59 Last Admin: 03/04/25 08:14 Dose: 40 mg Enoxaparin Sodium (Enoxaparin Sod Inj 60 Mg/0.6 Ml Syringe) 60 mg SC Q12HR [facility] Stop: 03/18/25 20:59 Etomidate (Etomidate Inj 2 Mg/Ml Vial 10 Ml) 20 mg IVP X1 ONE Stop: 02/27/25 06:13 Last Admin: 02/27/25 06:14 Dose: 20 mg Etomidate (Etomidate Inj 2 Mg/Ml Vial 10 Ml) 20 mg IVP X1 ONE Stop: 02/27/25 07:39 Last Admin: 02/27/25 07:44 Dose: 20 mg Etomidate (Etomidate Inj 2 Mg/Ml Vial 10 Ml) 70 mg 0.3 mg/kg (70 mg) IV X1 ONE Stop: 03/06/25 02:54 Last Admin: 03/06/25 06:45 Dose: Not Given Etomidate (Etomidate Inj 2 Mg/Ml Vial 10 Ml) 20 mg IV X1 ONE Stop: 03/06/25 02:54 Last Admin: 03/06/25 03:18 Dose: 20 mg Etomidate (Etomidate Inj 2 Mg/Ml Vial 10 Ml) 40 mg IVP X1 ONE Stop: 03/10/25 15:56 Last Admin: 03/10/25 15:55 Dose: 40 mg Famotidine (Famotidine Inj 10 Mg/Ml Vial 2 Ml) 20 mg IVP QDAY [facility] Stop: 03/30/25 08:59 Furosemide (Furosemide Inj 10 Mg/Ml 4ml Vial) 60 mg IVP X1 ONE Stop: 02/27/25 16:13 Last Admin: 02/27/25 17:03 Dose: 60 mg Sodium Chloride (Ns) 1,000 mls @ 999 mls/hr IV .Q1H1M ONE Stop: 02/27/25 07:19 Last Infusion: 02/27/25 09:25 Dose: Infused Sodium Chloride (Ns) 1,000 mls @ 999 mls/hr IV .Q1H1M ONE Stop: 02/27/25 07:21 Last Infusion: 02/27/25 07:23 Dose: Infused Norepinephrine/Dextrose (Levophed In D5w 8mg/250ml) 8 mg in 250 mls @ 21.577 mls/hr IV .[id number] PRN; Protocol PRN Reason: PER PROTOCOL Stop: 03/29/25 06:57 Last Titration: 02/28/25 13:49 Dose: 0 mcg/kg/min, 0 mls/hr Sodium Chloride (Ns) 1,000 mls @ 999 mls/hr IV .Q1H1M ONE Stop: 02/27/25 08:01 Last Infusion: 02/27/25 09:25 Dose: Infused Sodium Chloride (Ns) 1,000 mls @ 999 mls/hr IV .Q1H1M ONE Stop: 02/27/25 08:18 Last Infusion: 02/27/25 09:25 Dose: Infused Ceftriaxone Sodium/Dextrose (Rocephin/D5w 1gm Iv Premix) 1 gm in 50 mls @ 100 mls/hr IV X1 ONE Stop: 02/27/25 07:47 Last Infusion: 02/27/25 09:25 Dose: Infused Acetaminophen (Ofirmev Inj) 1,000 mg in 100 mls @ 250 mls/hr IV X1 ONE Stop: 02/27/25 10:42 Last Infusion: 02/27/25 11:12 Dose: Infused Piperacillin Sod/Tazobactam (Sod 4.5 gm/ Sodium Chloride) 100 mls @ 200 mls/hr IV Q6HR [facility] Stop: 03/06/25 14:22 Last Admin: 02/28/25 05:34 Dose: 200 mls/hr Vancomycin HCl 2,000 mg/ (Sodium Chloride) 500 mls @ 150 mls/hr IV X1 ONE Stop: 02/27/25 18:19 Last Admin: 02/27/25 15:22 Dose: 150 mls/hr Amiodarone HCl/Dextrose (Nexterone Ivpb) 150 mg in 100 mls @ 600 mls/hr IV .Q10M ONE Stop: 02/27/25 19:36 Last Infusion: 02/27/25 19:47 Dose: Infused Amiodarone HCl/Dextrose (Nexterone Ivpb) 360 mg in 200 mls @ 33.333 mls/hr IV .Q6H ONE Stop: 02/28/25 01:36 Last Admin: 02/27/25 19:46 Dose: 33.333 mls/hr Amiodarone HCl/Dextrose (Nexterone Ivpb) 360 mg in 200 mls @ 16.667 mls/hr IV .Q12H [facility] Stop: 03/01/25 01:36 Last Admin: 02/28/25 13:56 Dose: 16.667 mls/hr Vancomycin HCl (Vancomycin/Water 1250 Mg Ivpb) 250 mls @ 120 mls/hr IV X1 ONE Stop: 02/28/25 12:04 Last Admin: 02/28/25 10:02 Dose: 120 mls/hr Piperacillin Sod/Tazobactam (Sod 4.5 gm/ Sodium Chloride) 100 mls @ 25 mls/hr IV Q8HR [facility]; Protocol Stop: 03/07/25 13:59 Last Admin: 03/01/25 05:26 Dose: 25 mls/hr Bumetanide 20 mg/ IV (Miscellaneous Supplies) 80 mls @ 4 mls/hr IV .Q20H [facility] Stop: 03/01/25 07:03 Last Admin: 02/28/25 12:11 Dose: 1 mg/hr, 4 mls/hr Vancomycin HCl (Vancomycin/Water 1250 Mg Ivpb) 250 mls @ 120 mls/hr IV X1 ONE Stop: 03/01/25 12:04 Last Admin: 03/01/25 08:58 Dose: 120 mls/hr Bumetanide 20 mg/ IV (Miscellaneous Supplies) 80 mls @ 8 mls/hr IV .Q10H [facility] Stop: 03/02/25 04:33 Last Admin: 03/02/25 02:26 Dose: 2 mg/hr, 8 mls/hr Azithromycin 500 mg/ Sodium (Chloride) 250 mls @ 250 mls/hr IV QDAY [facility] Stop: 03/03/25 10:18 Last Admin: 03/03/25 09:20 Dose: 250 mls/hr Ceftriaxone Sodium/Dextrose (Rocephin/D5w 1gm Iv Premix) 1 gm in 50 mls @ 100 mls/hr IV QDAY [facility] Stop: 03/06/25 10:18 Last Infusion: 03/06/25 09:58 Dose: Infused Dexmedetomidine/Sodium Chloride (Precedex Ivpb) 400 mcg in 100 mls @ 12.34 mls/hr IV .Q8H7M PRN; Protocol PRN Reason: Per PROTOCOL Stop: 03/31/25 18:13 Dexmedetomidine/Sodium Chloride (Precedex Ivpb) 200 mcg in 50 mls @ 12.34 mls/hr IV .Q4H4M PRN; Protocol PRN Reason: Per PROTOCOL Stop: 03/31/25 18:25 Last Titration: 03/03/25 02:00 Dose: 0 mcg/kg/hr, 0 mls/hr Bumetanide 20 mg/ IV (Miscellaneous Supplies) 80 mls @ 8 mls/hr IV .Q10H [facility] Stop: 03/03/25 08:51 Last Admin: 03/02/25 23:36 Dose: 2 mg/hr, 8 mls/hr Albumin Human (Albuminar-25 Ivpb) 12.5 gm in 50 mls @ 50 mls/hr IV X1 ONE Stop: 03/03/25 09:47 Last Admin: 03/03/25 09:17 Dose: 50 mls/hr Bumetanide 20 mg/ IV (Miscellaneous Supplies) 80 mls @ 8 mls/hr IV .Q10H [facility] Stop: 03/04/25 05:15 Last Admin: 03/03/25 20:06 Dose: 2 mg/hr, 8 mls/hr Potassium Chloride (Kcl Ivpb) 10 meq in 100 mls @ 100 mls/hr IV Q1H [facility] Stop: 03/03/25 13:21 Last Admin: 03/03/25 14:47 Dose: Not Given Potassium Chloride (Kcl Ivpb) 10 meq in 100 mls @ 100 mls/hr IV X1 ONE Stop: 03/03/25 15:42 Last Admin: 03/03/25 14:48 Dose: 100 mls/hr Magnesium Sulfate (Magnesium Sulfate Ivpb) 2 gm in 50 mls @ 25 mls/hr IV X1 ONE Stop: 03/04/25 12:13 Last Admin: 03/04/25 11:46 Dose: 25 mls/hr Magnesium Sulfate (Magnesium Sulfate Ivpb) 2 gm in 50 mls @ 25 mls/hr IV X1 ONE Stop: 03/05/25 10:08 Last Admin: 03/05/25 10:02 Dose: 25 mls/hr Acetazolamide Sodium 250 mg/ (Sodium Chloride) 50 mls @ 100 mls/hr IV X1 ONE Stop: 03/05/25 10:52 Last Admin: 03/05/25 12:26 Dose: 100 mls/hr Doxycycline Hyclate 100 mg/ (Sodium Chloride) 100 mls @ 100 mls/hr IV BID [facility] Stop: 03/12/25 23:29 Last Infusion: 03/06/25 09:58 Dose: Infused Magnesium Sulfate (Magnesium Sulfate Ivpb) 2 gm in 50 mls @ 25 mls/hr IV X1 ONE Stop: 03/06/25 01:42 Last Admin: 03/06/25 02:23 Dose: 25 mls/hr Propofol (Diprivan Ivpb) 1,000 mg in 100 mls @ 6.967 mls/hr IV .[id number] PRN; Protocol PRN Reason: PER PROTOCOL Stop: 04/05/25 02:56 Last Titration: 03/06/25 19:54 Dose: 0 mcg/kg/min, 0 mls/hr Fentanyl Citrate (Sublimaze Inj 2,500 Mcg/250 Ml Bag) 2,500 mcg in 250 mls @ 2.5 mls/hr IV .Q24H PRN; Protocol PRN Reason: PER PROTOCOL Stop: 03/11/25 02:57 Last Titration: 03/06/25 19:54 Dose: Infused Dexmedetomidine/Sodium Chloride (Precedex Ivpb) 200 mcg in 50 mls @ 11.37 mls/hr IV .Q4H24M PRN; Protocol PRN Reason: Per PROTOCOL Stop: 04/05/25 18:37 Last Titration: 03/07/25 10:55 Dose: 0 mcg/kg/hr, 0 mls/hr Amiodarone HCl/Dextrose (Nexterone Ivpb) 150 mg in 100 mls @ 600 mls/hr IV .Q10M ONE Stop: 03/10/25 10:56 Last Infusion: 03/10/25 13:00 Dose: Infused Amiodarone HCl/Dextrose (Nexterone Ivpb) 360 mg in 200 mls @ 33.333 mls/hr IV .Q6H ONE Stop: 03/10/25 17:29 Last Infusion: 03/10/25 18:35 Dose: Infused Amiodarone HCl/Dextrose (Nexterone Ivpb) 360 mg in 200 mls @ 16.667 mls/hr IV .Q12H [facility] Stop: 03/11/25 17:29 Fentanyl Citrate (Sublimaze Inj 2,500 Mcg/250 Ml Bag) 2,500 mcg in 250 mls @ 2.5 mls/hr IV .Q24H PRN; Protocol PRN Reason: PER PROTOCOL Stop: 03/15/25 15:55 Last Titration: 03/12/25 14:27 Dose: 0 mcg/hr, 0 mls/hr Propofol (Diprivan Ivpb) 1,000 mg in 100 mls @ 6.801 mls/hr IV .[id number] PRN; Protocol PRN Reason: PER PROTOCOL Stop: 04/09/25 15:55 Last Titration: 03/12/25 14:27 Dose: 0 mcg/kg/min, 0 mls/hr Cefepime HCl 1 gm/ Sodium (Chloride) 50 mls @ 100 mls/hr IV Q24H [facility] Stop: 03/17/25 19:14 Last Admin: 03/10/25 19:48 Dose: 100 mls/hr Lactated Ringer's (Lactated Ringers) 500 mls @ 999 mls/hr IV .Q31M ONE Stop: 03/10/25 21:25 Last Admin: 03/10/25 21:10 Dose: 999 mls/hr Lactated Ringer's (Lactated Ringers) 500 mls @ 999 mls/hr IV .Q31M ONE Stop: 03/12/25 12:15 Last Infusion: 03/12/25 19:11 Dose: Infused Dexmedetomidine/Sodium Chloride (Precedex Ivpb) 200 mcg in 50 mls @ 11.305 mls/hr IV .Q4H26M PRN; Protocol PRN Reason: Per PROTOCOL Stop: 04/11/25 13:16 Lactated Ringer's (Lactated Ringers) 1,000 mls @ 999 mls/hr IV .Q1H1M ONE Stop: 03/13/25 10:48 Last Admin: 03/13/25 10:30 Dose: 999 mls/hr Albumin Human (Albuminar-25 Ivpb) 25 gm in 100 mls @ 100 mls/hr IV QDAY [facility] Stop: 03/17/25 17:04 Last Admin: 03/15/25 08:02 Dose: 100 mls/hr Bumetanide 20 mg/ IV (Miscellaneous Supplies) 80 mls @ 4 mls/hr IV .Q20H [facility] Stop: 03/16/25 06:13 Insulin Glargine (Insulin Glargine (Lantus) 5 Unit/0.05 Ml (Per 5 Units)) 6 unit SC HS [facility] Stop: 04/03/25 20:59 Insulin Glargine (Insulin Glargine (Lantus) 5 Unit/0.05 Ml (Per 5 Units)) 8 unit SC HS [facility] Stop: 04/03/25 20:59 Last Admin: 03/04/25 21:14 Dose: 8 unit Insulin Glargine (Insulin Glargine (Lantus) 5 Unit/0.05 Ml (Per 5 Units)) 12 unit SC [facility] Stop: 04/04/25 20:59 Insulin Glargine (Insulin Glargine (Lantus) 5 Unit/0.05 Ml (Per 5 Units)) 14 unit SC [facility] Stop: 04/04/25 20:59 Last Admin: 03/05/25 23:28 Dose: 14 unit Insulin Glargine (Insulin Glargine (Lantus) 5 Unit/0.05 Ml (Per 5 Units)) 6 unit SC [facility] Stop: 04/06/25 20:59 Insulin Human Lispro (Insulin Lispro (Admelog) 1 Unit/0.01 Ml Unit) 0 unit SC AC [facility]; Protocol Stop: 04/02/25 11:29 Last Admin: 03/05/25 17:36 Dose: 2 unit Insulin Human Lispro (Insulin Lispro (Admelog) 1 Unit/0.01 Ml Unit) 0 unit SC ACHS [facility]; Protocol Stop: 04/04/25 23:14 Last Admin: 03/05/25 23:27 Dose: 2 unit Insulin Human Lispro (Insulin Lispro (Admelog) 1 Unit/0.01 Ml Unit) 0 unit SC Q6H [facility]; Protocol Stop: 04/05/25 03:59 Last Admin: 03/06/25 06:45 Dose: Not Given Ipratropium [place] (Ipratropium Rt 0.5 Mg/ 2.5 Ml Nebu) 0.5 mg INH Q8HR [facility] Stop: 04/05/25 05:59 Ipratropium [place] (Ipratropium Rt 0.5 Mg/ 2.5 Ml Nebu) 0.5 mg INH Q4H [facility] Stop: 04/05/25 03:59 Last Admin: 03/07/25 13:59 Dose: Not Given Ipratropium [place] (Ipratropium Rt 0.5 Mg/ 2.5 Ml Nebu) 0.5 mg INH Q4HRRT [facility] Stop: 04/05/25 14:59 Levalbuterol HCl (Levalbuterol Rt 0.63 Mg/3 Ml Nebu) 0.63 mg INH Q8HR [place] Stop: 04/05/25 05:59 Levalbuterol HCl (Levalbuterol Rt 0.63 Mg/3 Ml Nebu) 1.25 mg INH Q4H [place] Stop: 04/05/25 03:59 Last Admin: 03/07/25 13:59 Dose: Not Given Melatonin (Melatonin 3 Mg Tablet) 3 mg PO X1 ONE Stop: 03/04/25 21:01 Last Admin: 03/04/25 21:12 Dose: 3 mg Metolazone (Metolazone 2.5 Mg Tablet) 10 mg PO X1 ONE Stop: 03/06/25 11:00 Last Admin: 03/06/25 11:34 Dose: 10 mg Metolazone (Metolazone 2.5 Mg Tablet) 10 mg PO X1 ONE Stop: 03/07/25 08:47 Last Admin: 03/07/25 09:12 Dose: 10 mg Metoprolol Succinate (Metoprolol Succinate Xl 25 Mg Tabcr) 50 mg PO BID [facility] Stop: 04/01/25 09:29 Last Admin: 03/03/25 09:21 Dose: 50 mg Metoprolol Succinate (Metoprolol Succinate Xl 25 Mg Tabcr) 100 mg PO BID [facility] Stop: 04/02/25 20:59 Last Admin: 03/09/25 20:53 Dose: Not Given Metoprolol Succinate (Metoprolol Succinate Xl 25 Mg Tabcr) 50 mg PO X1 ONE Stop: 03/03/25 13:17 Last Admin: 03/03/25 14:49 Dose: 50 mg Metoprolol Succinate (Metoprolol Succinate Xl 25 Mg Tabcr) 100 mg PO BID [facility] Stop: 04/13/25 20:59 Metoprolol Tartrate (Metoprolol Tartrate Inj 1 Mg/Ml Amp 5 Ml) 5 mg IVP X1 ONE Stop: 03/01/25 18:37 Last Admin: 03/01/25 18:41 Dose: 5 mg Metoprolol Tartrate (Metoprolol Tartrate Inj 1 Mg/Ml Amp 5 Ml) 5 mg IVP Q8HR [place] Stop: 04/08/25 21:59 Last Admin: 03/10/25 14:30 Dose: Not Given Metoprolol Tartrate (Metoprolol Tartrate Inj 1 Mg/Ml Amp 5 Ml) 2 mg IVP X1 ONE Stop: 03/10/25 04:18 Last Admin: 03/10/25 04:22 Dose: Not Given Metoprolol Tartrate (Metoprolol Tartrate Inj 1 Mg/Ml Amp 5 Ml) 2 mg IVP X1 ONE Stop: 03/10/25 04:18 Last Admin: 03/10/25 04:31 Dose: 2 mg Metoprolol Tartrate (Metoprolol Tartrate Inj 1 Mg/Ml Amp 5 Ml) 5 mg IVP X1 ONE Stop: 03/14/25 16:22 Last Admin: 03/14/25 16:30 Dose: 5 mg Midazolam HCl (Midazolam Inj 1 Mg/Ml Vial 2 Ml) 2 mg IVP X1 ONE Stop: 03/10/25 15:58 Last Admin: 03/10/25 16:00 Dose: 2 mg Midazolam HCl (Midazolam Inj 1 Mg/Ml Vial 2 Ml) 4 mg IV X1 ONE Stop: 03/12/25 05:02 Last Admin: 03/12/25 05:12 Dose: 4 mg Midodrine (Midodrine 5 Mg Tablet) 10 mg PO Q6HR [place] Stop: 03/30/25 11:59 Last Admin: 03/02/25 13:43 Dose: 10 mg Midodrine (Midodrine 5 Mg Tablet) 5 mg PO Q6HR [place] Stop: 04/01/25 17:59 Last Admin: 03/04/25 11:28 Dose: Not Given Morphine Sulfate (Morphine Sulf Inj 10 Mg/Ml Vial) 1 mg IVP X1 ONE Stop: 03/14/25 20:18 Last Admin: 03/14/25 20:31 Dose: 1 mg Nitroglycerin (Nitroglycerin 0.4 Mg Subl Btl #25) 0.4 mg SL Q5MIN PRN PRN Reason: CHEST PAIN Pharmacy Consult (Vancomycin Pharmacy To Dose 1 Each Each) 1 each IV QDAY PRN PRN Reason: CONSULT Stop: 03/29/25 14:29 Potassium Chloride (Potassium Chloride 20 Meq Tabcr) 20 meq PO X1 ONE Stop: 03/03/25 14:43 Last Admin: 03/03/25 14:49 Dose: 20 meq Potassium Chloride (Potassium Chloride 20 Meq Tabcr) 40 meq PO X1 ONE Stop: 03/04/25 07:59 Last Admin: 03/04/25 08:56 Dose: 40 meq Potassium Chloride (Potassium Chloride 20 Meq Tabcr) 40 meq PO X1 ONE Stop: 03/05/25 08:10 Last Admin: 03/05/25 09:50 Dose: 40 meq Potassium Chloride (Potassium Chloride 20 Meq Tabcr) 40 meq PO X1 ONE Stop: 03/08/25 10:44 Last Admin: 03/08/25 11:30 Dose: 40 meq Potassium Chloride (Potassium Chloride 20 Meq Tabcr) 40 meq PO X1 ONE Stop: 03/13/25 06:36 Last Admin: 03/13/25 22:02 Dose: Not Given Potassium Chloride (Potassium Chloride 10% 20 Meq/15 Ml Udc) 40 meq GT X1 ONE Stop: 03/13/25 06:47 Last Admin: 03/13/25 09:38 Dose: 40 meq Potassium Chloride (Potassium Chloride 10% 20 Meq/15 Ml Udc) 20 meq GT X1 ONE Stop: 03/14/25 07:15 Rocuronium [place] (Rocuronium Inj 10 Mg/Ml Vial 10 Ml) 100 mg IVP X1 ONE Stop: 02/27/25 06:13 Last Admin: 02/27/25 06:14 Dose: 100 mg Rocuronium [place] (Rocuronium Inj 10 Mg/Ml Vial 10 Ml) 100 mg IV X1 ONE Stop: 02/27/25 07:40 Last Admin: 02/27/25 07:44 Dose: 100 mg Rocuronium [place] (Rocuronium Inj 10 Mg/Ml Vial 10 Ml) 130 mg IV X1 ONE Stop: 03/06/25 02:54 Last Admin: 03/06/25 06:45 Dose: Not Given Rocuronium [place] (Rocuronium Inj 10 Mg/Ml Vial 10 Ml) 100 mg IV X1 ONE Stop: 03/06/25 02:54 Last Admin: 03/06/25 03:18 Dose: 100 mg Sodium Chloride (Sodium Chloride Rt 10% 15 Ml Nebu) 5 ml INH X1 ONE Stop: 02/27/25 14:39 Last Admin: 03/02/25 09:20 Dose: Not Given Sodium Chloride (Sodium Chloride Rt 10% 15 Ml Nebu) 5 ml INH X1 ONE Stop: 03/06/25 03:25 Last Admin: 03/07/25 13:55 Dose: Not Given Sodium Polystyrene Sulfonate (Sod Polystyrene Sulfon Susp 15 Gm/60 Ml Btl) 30 gm PO X1 ONE Stop: 03/01/25 10:19 Last Admin: 03/01/25 10:58 Dose: 30 gm Succinylcholine [place]lor[place] (Succinylcholine Inj 20 Mg/Ml Vial 10 Ml) 100 mg IV X1 ONE Stop: 03/10/25 15:56 Last Admin: 03/10/25 16:46 Dose: Not Given Assessment & Plan Plan 64-year-old male with past medical history of DM2, hypertension, and A-fib was admitted to the ICU on 02/27/2025 for acute hypoxic respiratory failure and altered mental status requiring intubation. Nephrology consulted for acute renal failure with worsening kidney function. #KENIA #Metabolic alkalosis #Hypernatremia, Hyper-osmolar Patient has no history of chronic kidney disease. Patient developed KENIA with worsening renal function during hospitalization. Initially suspected of cardiorenal syndrome, was treated with IV Bumex. Despite diuretic therapy patient kidney function continued to worsen. Suspect currently in ATN. Bumex was held, patient started on free water flushes. Patient continued to have worsening kidney function. Patient started on albumin today. Patient appears intravascularly depleted and intravascularly fluid overloaded. -Avoid nephrotoxic agent -Renally dose medication -Monitor daily labs -Continue free water flushes - Recommend albumin with Bumex drip for Significant anasarca In the setting of hypoalbuminemia Complete the workup for hypoalbuminemia-rule out nephrotic range proteinuria - Renal ultrasound - Urinalysis, microalbumin, random urine protein #Acute encephalopathy #Right diastolic CHF #Hx of A-fib #Acute on chronic hypoxic and hypercapnic respiratory failure #Obesity hypoventilation syndrome and obstructive sleep apnea #Community-acquired pneumonia, Enterobacter [place] #Morbid obesity #DM2 #Community-acquired pneumonia, Enterobacter [place] Management as per primary team Thank you for allowing us to participate in the care of this patient. Management discussed with attending Dr. Gannon. Anil Rodriguez MD PGY?1 Attending Provider Attestation/Addendum Patient seen and examined with resident physician Dr. Campos. Note reviewed, agree with findings and recommendations. Morbidly obese gentleman presented with acute hypoxic/hypercarbic respiratory failure. Significant anasarca noted. Diuretics were given. However patient went into KENIA. Suspect intravascular volume depletion. Hypernatremia-on free water flushes. Agree with diuretics with albumin. If no improvement in the renal function or if patient continues to be in significant anasarcic state-he might need sequential ultrafiltration. Thank you Dr. Posey for allowing me to participate in the care of Mr. Ortega.
[2025-03-15 16:10] LABS: Collection Type, Urine Catheter; Squamous Epithelial Cell,Urine 0 /hpf (0-5)
[2025-03-15 16:19] LABS: Bacteria,Urine 2+; Bilirubin,Urine Negative (Negative); Blood,Urine Trace (Negative); Clarity,Urine Cloudy (Clear/Hazy); Color,Urine Yellow (Lt Yel-Yel); Glucose, Urine Negative (Negative); Ketones,Urine Negative (Negative); Leukocyte Esterase,Urine Negative (Negative); Nitrite,Urine Negative (Negative); Protein,Urine Trace (Neg - Trace); RBC,Urine 1 /hpf (0-3); Specific Gravity,Urine 1.017 (1.001-1.035); Uric Acid Crystals,Urine 3+; Urobilinogen,Urine Negative mg/dL (0.0-1.0); WBC,Urine 1 /hpf (0-5)
[2025-03-15 16:23] LABS: Creatinine MALB Rnd Ur 104 mg/dL (30-125); Microalbumin Creat Ratio 15 mg/gCrea (<30); Microalbumin, Random Urine 16 mg/L (0-300); Protein Total, Random Urine 99 mg/dL (1-14)
--- NOTE | 2025-03-15 16:38 | PD.IMCONS ---
HPI Data of Consult Requesting Physician: Pavel Mendoza MD Primary Care Provider: Physician No Primary/Family Consult Narrative Reason for consult: For placement of PEG tube evaluation History of present illness: 64 years old male evaluated in the ICU at the request of the internal medicine team for placement of the PEG tube Patient was admitted on 02/27/2025 when presented via EMS with altered mental status and shortness of breath requiring endotracheal intubation He was also found to be hypotensive started on pressors Since then he has undergone tracheostomy and a long-term management and have been consulted for placement of the PEG tube in the setting of morbid obesity which is going to be a technical challenge nonetheless it should be tried Patient has a history of longstanding diabetes mellitus type 2 hypertension atrial fibrillation cc:: cc: Pavel Mendoza MD Review of Systems Review of Systems ROS Unobtainable: unobtainable due to medical condition Past Medical History Surgical History OTHER SURGICAL HX: As in the history of present illness Meds Home Medications and Allergies Home Medications ?Medication ?Instructions ?Recorded ?Confirmed ?Type amlodipine 10 mg tablet 10 mg PO 1XD 02/27/25 02/27/25 History gabapentin 600 mg tablet 600 mg PO 3XD 02/27/25 02/27/25 History glipizide 10 mg tablet 10 mg PO 1XD 02/27/25 02/27/25 History losartan 25 mg tablet 25 mg PO 1XD 02/27/25 02/27/25 History metformin 1,000 mg tablet 1,000 mg PO 2XD 02/27/25 02/27/25 History metoprolol succinate 100 mg 100 mg PO 2XD 02/27/25 02/27/25 History tablet,extended release 24 hr tramadol 50 mg tablet 50 mg PO 3XD 02/27/25 02/27/25 History Allergies Allergy/AdvReac Type Severity Reaction Status Date / Time No Known Allergies Allergy Verified 02/27/25 06:45 Exam Vital Signs Temp Pulse Resp BP Pulse Ox O2 Del Method O2 Flow Rate 98.7 F 100 22 H 131/92 H 96 Mechanical Ventilation 5 03/15/25 16:00 03/15/25 16:00 03/14/25 15:01 03/15/25 16:00 03/15/25 16:00 03/15/25 16:00 03/10/25 11:46 FiO2 60 03/15/25 16:00 Routine Respiratory Exam Comments: Status post tracheostomy mechanically ventilated Results Labs 03/15/25 06:02 03/15/25 06:02 Labs: Short CBC 03/15/25 Range/Units 06:02 WBC 12.5 H (3.8-10.6) Thou/mm3 Hgb 12.1 L (13.5-16.0) g/dL Hct 39.1 L (41.0-53.0) % Plt Count 346 (140-440) Thou/mm3 BMP 03/15/25 06:02 Sodium 149 H Potassium 3.6 Chloride 104 Carbon Dioxide 33.5 H BUN 76 H Creatinine 2.7 H Glucose 195 H Calcium 9.0 Liver Function 03/15/25 Range/Units 06:02 Total Bilirubin 1.0 (0.3-1.2) mg/dL AST 34 (0-34) U/L ALT 20 (10-49) U/L Alkaline Phosphatase 108 (46-116) U/L Albumin 3.0 L (3.4-4.8) gm/dL Urine 03/15/25 Range/Units 15:57 Urine Color Yellow (Lt Yel-Yel) Urine Clarity Cloudy A (Clear/Hazy) Urine pH 5.0 (5.0-7.0) Ur Specific [place] 1.017 (1.001-1.035) Urine Protein Trace (Neg - Trace) Urine Glucose (UA) Negative (Negative) ABG Interpretation ABG results: 02/27/25 02/28/25 03/01/25 06:55 04:57 04:39 ABG pH 7.27 L 7.37 D 7.41 ABG pCO2 57 H 48 44 ABG pO2 101 78 L D 69 L ABG HCO3 26 28 H 28 H ABG O2 Saturation 98 95 93 ABG Base Excess -2 2 3 VBG pH VBG pCO2 VBG pO2 VBG Base Excess 03/01/25 03/01/25 03/02/25 13:15 14:52 04:25 ABG pH Cancelled 7.41 7.45 ABG pCO2 Cancelled 45 42 ABG pO2 Cancelled 53 L* 66 L ABG HCO3 Cancelled 28 H 29 H ABG O2 Saturation Cancelled 85 L 92 ABG Base Excess Cancelled 3 5 H VBG pH VBG pCO2 VBG pO2 VBG Base Excess 04/03/05/25 03/05/25 04:40 16:30 16:55 ABG pH 7.45 Cancelled 7.34 L D ABG pCO2 43 Cancelled 72 H* D ABG pO2 72 L Cancelled 83 ABG HCO3 30 H Cancelled 38 H ABG O2 Saturation 94 Cancelled 95 ABG Base Excess 5 H Cancelled 9 H VBG pH VBG pCO2 VBG pO2 VBG Base Excess 03/05/25 03/06/25 03/06/25 23:36 01:48 05:22 ABG pH 7.37 7.34 L 7.52 H D ABG pCO2 67 H 74 H* 47 D ABG pO2 150 H D 88 D 160 H D ABG HCO3 38 H 40 H 38 H ABG O2 Saturation 99 H 96 100 H ABG Base Excess 10 H 11 H 13 H VBG pH VBG pCO2 VBG pO2 VBG Base Excess 03/06/25 03/07/25 03/07/25 17:10 05:00 14:03 ABG pH 7.46 H ABG pCO2 53 H ABG pO2 65 L D ABG HCO3 38 H ABG O2 Saturation 93 ABG Base Excess 12 H VBG pH 7.50 7.52 VBG pCO2 50 47 VBG pO2 70 H 61 H VBG Base Excess 13 H 14 H 03/09/25 03/09/25 03/09/25 08:17 10:25 17:29 ABG pH 7.25 L D 7.29 L 7.29 L ABG pCO2 93 H* D 85 H* 88 H* ABG pO2 81 L 57 L* D 85 D ABG HCO3 41 H 40 H 43 H ABG O2 Saturation 95 89 L 97 ABG Base Excess 10 H 10 H 12 H VBG pH VBG pCO2 VBG pO2 VBG Base Excess 03/09/25 03/10/25 03/10/25 23:24 07:17 11:25 ABG pH 7.32 L 7.28 L 7.31 L ABG pCO2 78 H* D 90 H* D 81 H* ABG pO2 69 L 47 L* D 63 L ABG HCO3 40 H 43 H 41 H ABG O2 Saturation 94 80 L 93 ABG Base Excess 11 H 12 H 11 H VBG pH VBG pCO2 VBG pO2 VBG Base Excess 03/10/25 03/11/25 03/12/25 16:56 04:19 04:42 ABG pH 7.40 7.48 H 7.43 ABG pCO2 66 H D 54 H D 59 H ABG pO2 68 L 67 L 77 L ABG HCO3 41 H 40 H 39 H ABG O2 Saturation 94 94 96 ABG Base Excess 13 H 15 H 12 H VBG pH VBG pCO2 VBG pO2 VBG Base Excess 03/13/25 03/14/25 03/15/25 04:32 04:25 04:37 ABG pH 7.47 H 7.46 H 7.41 ABG pCO2 53 H 50 H 56 H ABG pO2 60 L 70 L 69 L ABG HCO3 38 H 36 H 35 H ABG O2 Saturation 93 95 95 ABG Base Excess 13 H 10 H 9 H VBG pH VBG pCO2 VBG pO2 VBG Base Excess Assessment and Plan Additional Assessment & Plan Additional Plan: # Evaluation for placement of a PEG tube I have tentatively schedule the patient for tomorrow afternoon It is going to be a technical challenge as patient is morbidly obese and there may not be a long enough catheter to intubate the cavity of the stomach Nonetheless it should be given for endoscopic placement of the PEG tube Other medical problems include Acute hypoxic respiratory failure requiring initially endotracheal intubation now tracheostomy and mechanical ventilation Chronic atrial fibrillation Diabetes mellitus type 2 Essential hypertension Thank you very much for the opportunity to participate in the care of this patient
--- NOTE | 2025-03-15 16:52 | PC.SS ---
Update: Patient in possession of trach. Plan is for patient to obtain PEG placement tomorrow. Patient is not receiving pressor support. NPO. Patient not receiving IV fluids.
--- NOTE | 2025-03-15 17:07 | ESPR_ITS ---
Documentation for date of: 03/15/25 Subjective Subjective Interval history: No overnight events. Afebrile overnight. Minimal urine output of 200 cc. Patient continues to remain off precedex. Tracheostomy, mechanically ventilated VT 420, PEEP 8, and flow 40/FiO2 of 60. Patient is alert and cooperative. Atrial fibrillation still present, on Amiodarone and Metoprolol Tartrate. Bumex drip 1 mg/hr plus daily albumin. Nephrology consulted given poor kidney function, renal us, urinalysis, uric acid, and albumin-Cr ration, and total urine. Patient scheduled for PEG tube tomorrow, please discontinue heparin drip tomorrow morning. Exam Vital Signs Temp Pulse Resp BP Pulse Ox O2 Del Method O2 Flow Rate 98.7 F 107 H 22 H 145/106 H 95 Mechanical Ventilation 5 03/15/25 16:00 03/15/25 17:00 03/14/25 15:01 03/15/25 17:00 03/15/25 17:00 03/15/25 16:00 03/10/25 11:46 FiO2 60 03/15/25 16:00 Narrative Exam General Appearance: Alert & Oriented X0, obese male who is lying in bed in no acute distress, mechanically ventilated on tracheostomy. HEENT: Skull symmetrical and atraumatic. Conjunctivae pale pink and moist. Pupils equal, round, reactive to light and accommodation (PERRL). External ear without lesion or discharge. Cardio: Normal Rate and Rhythm with S1 and S2 heart sounds. No murmurs or extra heart sounds auscultated. No bruits on carotid auscultation. Lower pedal edema. Lungs: Symmetric expansion. Breath sounds vesicular but with upper airway sounds from ventilation. No crackles, wheezing or rhonchi Abdomen: Non-tender, Non-distended, Normal Reactive Bowel Sounds Neuro: No Alert, YES cooperative, No oriented to person, No place, and NO time. Non verbal, secondary to tracheostomy. Upper motor strength 3/5 and lower motor strength 4/5. Objective Labs 03/20/25 04:36 03/20/25 04:36 Labs: Laboratory Results - last 24 hr 03/15/25 03/15/25 03/15/25 04:37 06:02 15:57 WBC 12.5 H RBC 4.27 L Hgb 12.1 L Hct 39.1 L MCV 92 MCH 28.3 MCHC 30.9 L RDW Std Deviation 47.7 H Plt Count 346 Neut % (Auto) 82 H Lymph % (Auto) 8 L Lares % (Auto) 8 Eos % (Auto) 1 Baso % (Auto) 1 Neut # (Auto) 10.2 H Lymph # (Auto) 1.0 Lares # (Auto) 1.0 H Eos # (Auto) 0.1 Baso # (Auto) 0.1 Immature Gran # (Auto) 0.09 H Absolute Nucleated RBC 0.00 Immature Gran % 1 H Nucleated RBC % 0 PT 13.9 H INR 1.3 Puncture Site Left Radial ABG pH 7.41 ABG pCO2 56 H ABG pO2 69 L ABG HCO3 35 H ABG O2 Saturation 95 ABG Base Excess 9 H FiO2 60 Sodium 149 H Potassium 3.6 Chloride 104 Carbon Dioxide 33.5 H Anion Gap 12 BUN 76 H Creatinine 2.7 H Estim Creat Clear Calc 51.0 L eGFR 25 L BUN/Creatinine Ratio 28 H Glucose 195 H Calculated Osmolality 323 H Calcium 9.0 Corrected Calcium 9.8 Magnesium 1.8 Total Bilirubin 1.0 AST 34 ALT 20 Alkaline Phosphatase 108 Total Protein 5.8 Albumin 3.0 L Globulin 2.8 Albumin/Globulin Ratio 1.1 L Ur Collection Type Catheter Urine Color Yellow Urine Clarity Cloudy A Urine pH 5.0 Ur Specific Hensley 1.017 Urine Protein Trace Urine Glucose (UA) Negative Urine Ketones Negative Urine Blood Trace Urine Nitrite Negative Urine Bilirubin Negative Urine Urobilinogen (Auto) Negative Ur Leukocyte Esterase Negative Urine RBC 1 Urine WBC 1 Ur Squamous Epith Cells 0 Uric Acid Crystals 3+ A Urine Bacteria 2+ A Ur Random Microalbumin 16 U Random Total Protein 99 H U Creat (Microalbumin) 104 Microalb/Creat Ratio 15 ABG Interpretation ABG results: 02/27/25 02/28/25 03/01/25 06:55 04:57 04:39 ABG pH 7.27 L 7.37 D 7.41 ABG pCO2 57 H 48 44 ABG pO2 101 78 L D 69 L ABG HCO3 26 28 H 28 H ABG O2 Saturation 98 95 93 ABG Base Excess -2 2 3 VBG pH VBG pCO2 VBG pO2 VBG Base Excess 03/01/25 03/01/25 03/02/25 13:15 14:52 04:25 ABG pH Cancelled 7.41 7.45 ABG pCO2 Cancelled 45 42 ABG pO2 Cancelled 53 L* 66 L ABG HCO3 Cancelled 28 H 29 H ABG O2 Saturation Cancelled 85 L 92 ABG Base Excess Cancelled 3 5 H VBG pH VBG pCO2 VBG pO2 VBG Base Excess 03/03/25 03/05/25 03/05/25 04:40 16:30 16:55 ABG pH 7.45 Cancelled 7.34 L D ABG pCO2 43 Cancelled 72 H* D ABG pO2 72 L Cancelled 83 ABG HCO3 30 H Cancelled 38 H ABG O2 Saturation 94 Cancelled 95 ABG Base Excess 5 H Cancelled 9 H VBG pH VBG pCO2 VBG pO2 VBG Base Excess 03/05/25 03/06/25 03/06/25 23:36 01:48 05:22 ABG pH 7.37 7.34 L 7.52 H D ABG pCO2 67 H 74 H* 47 D ABG pO2 150 H D 88 D 160 H D ABG HCO3 38 H 40 H 38 H ABG O2 Saturation 99 H 96 100 H ABG Base Excess 10 H 11 H 13 H VBG pH VBG pCO2 VBG pO2 VBG Base Excess 03/06/25 03/07/25 03/07/25 17:10 05:00 14:03 ABG pH 7.46 H ABG pCO2 53 H ABG pO2 65 L D ABG HCO3 38 H ABG O2 Saturation 93 ABG Base Excess 12 H VBG pH 7.50 7.52 VBG pCO2 50 47 VBG pO2 70 H 61 H VBG Base Excess 13 H 14 H 03/09/25 03/09/25 03/09/25 08:17 10:25 17:29 ABG pH 7.25 L D 7.29 L 7.29 L ABG pCO2 93 H* D 85 H* 88 H* ABG pO2 81 L 57 L* D 85 D ABG HCO3 41 H 40 H 43 H ABG O2 Saturation 95 89 L 97 ABG Base Excess 10 H 10 H 12 H VBG pH VBG pCO2 VBG pO2 VBG Base Excess 03/09/25 03/10/25 03/10/25 23:24 07:17 11:25 ABG pH 7.32 L 7.28 L 7.31 L ABG pCO2 78 H* D 90 H* D 81 H* ABG pO2 69 L 47 L* D 63 L ABG HCO3 40 H 43 H 41 H ABG O2 Saturation 94 80 L 93 ABG Base Excess 11 H 12 H 11 H VBG pH VBG pCO2 VBG pO2 VBG Base Excess 03/10/25 03/11/25 03/12/25 16:56 04:19 04:42 ABG pH 7.40 7.48 H 7.43 ABG pCO2 66 H D 54 H D 59 H ABG pO2 68 L 67 L 77 L ABG HCO3 41 H 40 H 39 H ABG O2 Saturation 94 94 96 ABG Base Excess 13 H 15 H 12 H VBG pH VBG pCO2 VBG pO2 VBG Base Excess 03/13/25 03/14/25 03/15/25 04:32 04:25 04:37 ABG pH 7.47 H 7.46 H 7.41 ABG pCO2 53 H 50 H 56 H ABG pO2 60 L 70 L 69 L ABG HCO3 38 H 36 H 35 H ABG O2 Saturation 93 95 95 ABG Base Excess 13 H 10 H 9 H VBG pH VBG pCO2 VBG pO2 VBG Base Excess Quality Measures Quality Measures sepsis Current suspected stage: ruled out Possible source: pulmonary Blood cultures ordered: completed in ED Antibiotic ordered: Yes Advance care planning discussed with:: patient Assessment & Plan Assessment Current Active Medications: Generic Name Dose Route Start Last Admin Trade Name Freq PRN Reason Stop Dose Admin Acetaminophen 650 mg 03/10/25 19:17 Acetaminophen 325 Mg Tablet PO 03/29/25 09:23 Q4HR PRN fever > 100.4 Al Hydrox/Mg Hydrox/Simethicone 30 ml 02/27/25 09:24 Mg Hyd/Al Hyd/Virgilio (Maalox Reg) Susp 30 Ml Udc PO 03/29/25 09:23 Q4HR PRN Heartburn or Upset Stomach Amiodarone HCl 200 mg 03/01/25 09:00 03/15/25 08:01 Amiodarone Hcl 200 Mg Tablet PO 03/31/25 08:59 200 mg QDAY KOURTNEY Administration Dextrose 25 ml 03/03/25 08:20 Dextrose 50%-Water Inj 50 Ml Syringe IV 04/02/25 08:19 Q15MIN PRN BG 50-70 responsive npo pt Dextrose 50 ml 03/03/25 08:20 Dextrose 50%-Water Inj 50 Ml Syringe IV 04/02/25 08:19 Q15MIN PRN BG <50 OR BG <70 & pt unresponsive Glucagon 1 mg 03/03/25 08:20 Glucagon Inj 1 Mg Vial IM Q15MIN PRN BG <70, and no IV access Heparin Sodium (Porcine) 7,500 unit 03/15/25 02:00 03/15/25 13:06 Heparin Sod Inj 5000 Unit/Ml Vial SC 03/29/25 01:59 7,500 unit Q8HR KOURTNEY Administration Cefepime HCl 1 gm/ Sodium 50 mls @ 100 mls/hr 03/11/25 21:00 03/15/25 08:02 Chloride IV 03/18/25 20:59 100 mls/hr Q12HR KOURTNEY Administration Propofol 1,000 mg in 100 mls @ 6.801 mls/hr 03/12/25 13:18 Diprivan Ivpb IV 04/09/25 15:55 .[id number] PRN PER PROTOCOL Protocol 5 MCG/KG/MIN Dexmedetomidine/Sodium Chloride 400 mcg in 100 mls @ 11.305 mls/hr 03/12/25 14:03 03/14/25 07:54 Precedex Ivpb IV 04/11/25 14:02 Infused .[id number] PRN Titration Per PROTOCOL Protocol 0.2 MCG/KG/HR Bumetanide 20 mg/ IV 80 mls @ 4 mls/hr 03/15/25 10:31 03/15/25 10:51 Miscellaneous Supplies IV 03/16/25 06:13 1 mg/hr .Q20H KOURTNEY 4 mls/hr Administration 1 MG/HR Albumin Human 25 gm in 100 mls @ 100 mls/hr 03/16/25 09:00 Albuminar-25 Ivpb IV 03/19/25 08:59 QDAY KOURTENY Insulin Human Lispro 0 unit 03/06/25 06:00 03/15/25 13:04 Insulin Lispro (Admelog) 1 Unit/0.01 Ml Unit SC 04/05/25 05:59 1 unit Q6H KOURTNEY Administration Protocol Magnesium Hydroxide 30 ml 02/27/25 09:24 Milk Of Magnesia Susp 30 Ml Udc PO 03/29/25 09:23 QDAY PRN CONSTIPATION Metoprolol Tartrate 100 mg 03/14/25 21:00 03/15/25 08:01 Metoprolol Tartrate 25 Mg Tablet PO 04/13/25 20:59 100 mg BID KOURTNEY Administration Ondansetron HCl 4 mg 03/05/25 20:46 03/09/25 03:49 Ondansetron Inj 2 Mg/Ml Inj 2 Ml IV 04/04/25 20:45 4 mg Q6HR PRN Administration NAUSEA OR VOMITING Protocol Pantoprazole Sodium 40 mg 02/27/25 11:15 03/15/25 08:03 Pantoprazole Inj 40 Mg Vial IV 03/29/25 11:14 40 mg QDAY KOURTNEY Administration Rivaroxaban 20 mg 03/04/25 17:30 03/12/25 13:27 Rivaroxaban 10 Mg Tablet PO 04/03/25 17:29 Not Given WSUPPER KOURTNEY Plan 64-year-old male with past medical history of DM2, hypertension, A-fib, and Jehova's witness was admitted to the ICU on 02/27/2025 for shock and acute hypoxic respiratory failure. He was extubated on 03/03 and downgraded then re- intubated on 03/06 due to confusion and tachypneia. He was then extubated and downgraded to the floor on 03/07. On 03/10, patient again had decreased mentation on the BiPAP so was reintubated and upgraded. 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 CVS: #Right diastolic CHF Echo could not visualize all chambers with limited ability to determine patient's ejection fraction. Given body habitus, history of obstructive sleep apnea and obesity hypoventilation syndrome, right heart failure suspected. Lower pedal edema likely combination of heart failure and third spacing. Excello-Mary procedure in ICU Bumex drip and albumin Patient today weight 234 Daily weights Strict I&O measurement #Hx of A-fib [id number] score of 3 points indicating 3.2% risk of stroke per year Has bled score of 0 Continue PO amiodarone 200 mg qday Holding metoprolol succinate 100 mg twice daily for now holding Xarelto; Started on heparin q8hr, please stop heparin 6 hours prior to PEG Echo could not visualize all chambers Respiratory: #Acute on chronic hypoxic and hypercapnic respiratory failure #Obesity hypoventilation syndrome and obstructive sleep apnea #Community-acquired pneumonia, Enterobacter Cloacoe Patient was intubated on 02/27/2025, extubated 03/03/2025. Reintubated on 03/06/2025 and extubated 03/07/2025. Reintubated 03/10/2025 for hypercapnic encephalopathy ABG today showed pH 7.48, PO2 of 67, and pCO2 of 54 CXR today showed improvement in congestion Patient had completed Rocephin (03/06/2025) Sputum cultures grew Enterobacter Cloacoe sensitive to cefepime Will continue with cefepime for now until 03/18/25 Renal: #KENIA #Metabolic alkalosis #Hypernatremia, Hyper-osmolar Worsening kidney function as Creatinine slightly worsened today, patient will continue albumin and restart Bumex drip. Acute Kidney injury likely in the setting of pre-renal from cardio-renal and edema in the setting of third spacing including low albumin. Plan Renal US, total protein Urine, micro-albumin urine, and UA Avoid nephrotoxic agent Renally dose medication GI: PEG tube scheduled for Tuesday, please hold heparin drip 6 hours prior. Endo: #Morbid obesity Patient has a BMI of 79.5 #DM2 A1C 7.6 on 03/05/2025 ISS Hypoglycemia protocol ordered Heme: #Leukocytosis, improving ID: #Community-acquired pneumonia, Enterobacter cloacoe Finished Rocephin (03/06/2025) WBC slightly went up to 14.7 from 13.9 yesterday, no fevers Patient grew Enterobacter cloacoe in sputum sensitive to cefepime Continue cefepime 03/18/2025 Hospital Maintenance: Diet: tube feeds, on hold-schedule PEG tube on Tuesday DVT ppx: Heparin 7500 units Q8HRS, please stop heparin 6 hours prior to PEG tube. GI ppx: protonix IV lines: PIV, central line for swan mary Fuller: pure wick Code status: Full code Dispo: ICU for acute on chronic hypoxic and hypercapnic respiratory failure. - The patient's plan was discussed with attending Dr. Kalpesh Esquivel MD PGY1 Internal Medicine Attending Provider Attestation/Addendum Patient seen and examined with above resident, Mery Esquivel MD. I agree with the findings, assessment, and plan of care as document except for any differences below. Patient with acute hypoxic respiratory failure, suspect there is a chronic component of obstructive sleep apnea/OHS. He is now post tracheostomy placement. NG tube placement in place pending PEG placement in the coming days. I suspect the patient continues to be significantly volume overloaded with right heart failure. I was concerned with his renal function that he may have intravascular depletion. However after discussion with other subspecialist, favor placement of right heart catheter to help determine the presence of pulmonary capillary wedge pressure as well as right atrial pressure to help guide fluid management or diuresis. Patient is on amiodarone and beta- blockade, this will be further adjusted based on enteral access and tolerance of meds. Unfortunately unable to perform echocardiography and LO would likely be too invasive. Will continue to maintain on lung protective mechanical ventilation with aggressive weaning based on ability to optimize fluid status in the coming days. He has been adequately treated from an infectious standpoint with pneumonia likely to improve in the coming weeks. Patient is slightly altered though this may be related to medications and ICU delirium at this point. Will avoid any sedatives or narcotics that could preclude his ability to continue to improve from a neurologic standpoint. Patient and family updated on plan of care at bedside. Total critical care time: I personally spent 40 minutes for review of physiologic parameters, directing plan of care throughout the day, coordination of care with other subspecialists, and counseling patient and family at bedside. This is exclusive of time spent teaching housestaff performing any separate billable procedures. Patient requiring critical care services for acute on chronic hypoxic respiratory failure and acute on chronic right greater than left heart failure with cardiorenal syndrome. Patient remains at significant risk of further morbidity and mortality warranting close monitoring of care only available in the intensive care unit.
--- NOTE | 2025-03-15 17:11 | ESOP_ITS ---
Procedures Procedure Date / Time 03/15/25 12:00 Procedure Narrative Procedure Narrative: Indications: Hemodynamic monitoring of pulmonary wedge pressure via [place] brian catheter. Time out took place to verify correct patient, procedure, site, and special equipment required. Patient was placed supine to access right internal jugular vein. Right anterior triangle and posterior triangle of the neck sterilized, draped, and Lidocaine used for local anesthetic. Needle puncture of jugular venous and wire guided through. Needle removed. Dilator guided via wire. Wire removed and swan gaz cathetered added. Procedure vacillate by ultra-sound. Minimal blood loss. Chest x-ray ordered. - The patient's plan was discussed with attending Dr. Posey and senior residents Dr. Nish Esquivel MD PGY1 Internal Medicine Attending attestation: I was present for entire procedure. Patient tolerated procedure well with no immediate complications right atrial pressure of 20, pulmonary artery pressure 75/38 (50), incomplete wedge. Notably patient is on positive pressure ventilation with PEEP of 8 and on volume control with peak pressures in the 20s. We did not perform cardiac output. Catheter continue to try to remain wedge and upon retraction became dislodged in the right atrium. We were unable to pass the catheter once again and this was removed to avoid any inadvertent complication from placement. Patient otherwise tolerated procedure well with no significant immediate complications. We did leave central line in place for plan for reaccess with right heart catheterization in the coming days. Proceed with diuresis as planned. Central Line Placement Right IJ: Indication(s): shock Informed consent obtained: from patient Time out done, and the following verified: correct patient, side and site, procedure and patient position Patient placed on monitor/pulse ox: Yes Hand Hygiene: scrub, soap & water and alcohol-based hand rub Max Sterile Barrier Techniques used: cap, mask, sterile gown, sterile gloves and sterile full body drape Central line prep: Povidone-Iodine 1%, Chlorhexidine scrub and sterile dr apes applied Local anesthesia used: lidocaine 1% Amount of anesthesia used (mL): 5 Ultrasound used for placement: Yes Sterile Technique if Ultrasound used, including sterile gel: yes Central line lumen inserted: single, double and triple Post procedure: sutured in place, good blood return, all ports aspirated, flushed, capped and sterile dressing applied Post procedure x-ray: tip of catheter in good position and no pneumothorax seen Patient tolerated procedure: well and no complications EBL(ml): 2
--- NOTE | 2025-03-15 19:42 | PC.NURSE ---
at 1240 Swans brian inserted by Dr. Posey, Xray obtained but unable to get accurate waveform, at 1830, SWANS brian removed by Dr. Posey but sheath remains cover by dressing by Dr. Posey, CVP monitoring obtained
[2025-03-15 22:24] LABS: Alanine Aminotransferase 22 U/L (10-49); Albumin, Serum 3.2 gm/dL (3.4-4.8); Albumin/Globulin Ratio 1.1 (1.2-2.2); Alkaline Phosphatase 113 U/L (46-116); Anion Gap 9 (7-16); Aspartate Amino Transferase 33 U/L (0-34); BUN/Creatinine Ratio 27 Ratio (12-20); Bilirubin,Total 0.9 mg/dL (0.3-1.2); Blood Urea Nitrogen 67 mg/dL (9-23); Calcium 8.8 mg/dL (8.3-10.6); Calcium (Corrected) 9.4 mg/dL (8.5-10.1); Carbon Dioxide 30.8 mMol/L (20.0-31.0); Chloride 103 mMol/L (98-107); Creatinine (Component) 2.5 mg/dL (0.6-1.3); Estimated Creatinine Clearance 55.1 mL/min (>60); Globulin 2.8 gm/dL (2.3-3.5); Glucose 184 mg/dL (74-106); Osmolality,Calculated 309 (275-295); Potassium 3.4 mMol/L (3.4-5.1); Sodium 143 mMol/L (136-145); eGFR 28 See Note
[2025-03-16] VITALS (36 sets, daily range): BP systolic 110–157; BP diastolic 54–123; PULSE 75–125; RESP 6–32; TEMP 35.9–36.4; O2SAT 90–100
[2025-03-16] MEDS: INSULIN LISPRO (AdmeLOG) 1 UNIT/0.01 ML UNIT SC ×4 (00:13→17:42)
[2025-03-16] MEDS: LORazepam 2 MG/ML VIAL 1 MG IVP (01:37)
[2025-03-16] MEDS: OLANZapine INJ 10 MG, Sterile Water 2.1 ML IM (02:43)
[2025-03-16 05:10] LABS: Base Excess 10 (-3-3); HCO3 35 mEq/L (20-26); Inspired Oxygen, FIO2 60 %; O2 Saturation 95 % (91-98); PCO2 51 mmHg (32.0-48.0); PO2 68 mmHg (83-108); pH, Arterial 7.45 (7.35-7.45)
[2025-03-16 05:13] LABS: Basophils # (Auto) 0.1 Thou/mm3 (0.0-0.2); Basophils % (Auto) 0 % (0-2.5); Eosinophils # (Auto) 0.2 Thou/mm3 (0.0-0.5); Eosinophils % (Auto) 2 % (0-10); Hematocrit 39.8 % (41.0-53.0); Hemoglobin 12.5 g/dL (13.5-16.0); Immature Granulocytes % (Auto) 1 % (0-0); Immature Granulocytes Auto 0.06 Thou/mm3 (0.00-0.00); Lymphocytes # (Auto) 0.9 Thou/mm3 (1.0-4.8); Lymphocytes % (Auto) 8 % (10-50); Mean Corpuscular HGB Conc 31.4 g/dl (31.0-37.0); Mean Corpuscular Hemoglobin 27.9 pg (25.0-35.0); Mean Corpuscular Volume 89 fL (80-100); Monocytes % (Auto) 9 % (0-12); Neutrophils # (Auto) 9.4 Thou/mm3 (1.8-7.7); Neutrophils % (Auto) 81 % (37-80); Nucleated Red Blood Cell % 0 /100 WBC (0); Platelet Count 303 Thou/mm3 (140-440); RDW Standard Deviation 46.4 fL (35.1-43.9); Red Blood Count 4.48 Miln/mm3 (4.50-5.90); White Blood Count 11.6 Thou/mm3 (3.8-10.6)
[2025-03-16 05:13] LABS: Allen Test Performed/OK; Puncture Site Left Brachial
[2025-03-16 05:47] LABS: Alanine Aminotransferase 22 U/L (10-49); Albumin, Serum 3.3 gm/dL (3.4-4.8); Albumin/Globulin Ratio 1.1 (1.2-2.2); Alkaline Phosphatase 124 U/L (46-116); Anion Gap 13 (7-16); Aspartate Amino Transferase 32 U/L (0-34); BUN/Creatinine Ratio 29 Ratio (12-20); Bilirubin,Total 0.9 mg/dL (0.3-1.2); Blood Urea Nitrogen 73 mg/dL (9-23); Calcium 8.8 mg/dL (8.3-10.6); Calcium (Corrected) 9.4 mg/dL (8.5-10.1); Carbon Dioxide 34.7 mMol/L (20.0-31.0); Cardiac Risk Estimate 5.3 RATIO (4.0-6.7); Chloride 102 mMol/L (98-107); Cholesterol 155 mg/dL (132-200); Creatinine (Component) 2.5 mg/dL (0.6-1.3); Estimated Creatinine Clearance 55.1 mL/min (>60); Globulin 2.9 gm/dL (2.3-3.5); Glucose 181 mg/dL (74-106); HDL Cholesterol 29 mg/dL (40-60); LDL Cholesterol,Calculated 102 mg/dL (0-130); Magnesium 1.8 mg/dL (1.6-2.6); Osmolality,Calculated 324 (275-295); Phosphorous 3.9 mg/dL (2.4-5.1); Potassium 3.2 mMol/L (3.4-5.1); Sodium 150 mMol/L (136-145); Total Protein 6.2 gm/dL (5.7-8.2); Triglycerides 121 mg/dL (30-150); eGFR 28 See Note
--- NOTE | 2025-03-16 06:00 | XR_ITS ---
Examination: AP chest single view TECHNIQUE: AP supine portable chest single view Exam date and time: March 16, 2025, 0626 hours INDICATIONS: Hypoxic respiratory failure post intubation FINDINGS: Mild heart failure Mild enlargement in cardiac contour. Prominent vascular congestion including central vascular engorgement. Early perihilar edema. Opacity at the lung bases, edema and/or pneumonia. Tracheostomy tube tip 6.3 cm above Meggan The film is underpenetrated for assessment of the lower orogastric tube Right internal jugular central line in proximal SVC No pneumothorax IMPRESSION: Mild heart failure. Suspicious for superimposed pneumonia at the lung bases Recommend abdomen film to assess position orogastric tube
[2025-03-16] MEDS: POTASSIUM CHL 10 mEq IVPB 10 MEQ/100 ML BAG 100 MEQ IV ×4 (06:43→10:18)
[2025-03-16] MEDS: CEFEPIME INJ 1 GM in SODIUM CHLORIDE 0.9% (Popper) 50 ML IV ×2 (08:39→22:18)
[2025-03-16] MEDS: ALBUMIN HUMAN 25% IVPB 25 GM/100 ML BTL IV (08:42)
[2025-03-16] MEDS: METOPROLOL TARTRATE 25 MG TABLET 100 MG PO ×2 (08:45→22:00)
[2025-03-16] MEDS: AMIODARONE HCL 200 MG TABLET PO (08:46)
[2025-03-16] MEDS: PANTOPRAZOLE INJ 40 MG VIAL IV (08:47)
[2025-03-16 10:01] LABS: Base Excess 12 (-3-3); HCO3 37 mEq/L (20-26); Inspired Oxygen, FIO2 60 %; O2 Saturation 67 % (91-98); PCO2 49 mmHg (32.0-48.0); pH, Arterial 7.48 (7.35-7.45)
[2025-03-16 10:02] LABS: Allen Test Not Performed; Puncture Site Arterial Line
[2025-03-16 10:08] LABS: PO2 34 mmHg (83-108)
--- NOTE | 2025-03-16 10:27 | ESPR_ITS ---
Documentation for date of: 03/16/25 Subjective Subjective Interval history: 64-year-old male with past medical history of DM2, hypertension, and A-fib was admitted to the ICU on 02/27/2025 after coming to the ED with complaints of altered mental status and shortness of breath. Patient was intubated in the ED therefore most of the history was taken from chart review and from the parents who are at bedside. Patient's parents stated that yesterday morning patient could not get up from his chair and then later that evening/night he started getting confused and was not making sense when he was seen. This morning EMS found the patient on the floor and he was saturating in the 70s even on high flow nasal cannula. Given his hypoxia patient was intubated in the ED. As per parents were at bedside they stated that prior to this patient was able to walk around, but that since yesterday morning he was unable to walk. On assessment patient was intubated, but was still able to answer yes or no questions. He was also able to follow commands. Patient spiked a fever while in the ED and he became hypotensive unresponsive to IV fluids therefore he was placed on vasopressors. 02/28/2025: Patient was seen examined at bedside this morning. Overnight patient did spike a fever of 100.4 and he had no measurable urine output. Patient placed on amio drip overnigth. He was also given Bumex 1 mg x 1 overnight to see if he had better urine output, but none was measured. Today's patient's chest x-ray this looks like it is improving and he did have wet pants and some urine in the pure wick catheter. Will start patient on Bumex drip at 1 mg and will monitor patient's daily weights. Patient was on very low-dose of Levophed therefore we will start patient on midodrine 10 mg every 6 hours and wean off Levophed entirely. Patient is nasogastric tube was not visualized had x-ray, but on auscultation air was audible in the stomach when hand was placed through the nasogastric tube. Will discontinue patient's vancomycin and Zosyn if his MRSA is negative and will transition to azithromycin and Rocephin. 03/01/2025: Patient seen and examined at bedside this morning. Overnight patient went into A-fib with RVR and he finishes bolus of amiodarone. Patient had a documented urine output of 150, but that she states 1 were very wet. His Bumex drip finished overnight and they were not able to start more Bumex drip as there was not available in the pharmacy overnight. Patient's weight did go down from 249 to 247 kg. Blood cultures have been negative in 48 hours and MRSA nares negative. Will discontinue vancomycin and Zosyn and will start azithromycin and Rocephin. Patient's ventilator requirements have been unchanged, but has been saturating in the 94% therefore we will try and wean down on oxygen requirements. His blood pressure has been stable off Levophed and only on midodrine. His kidney function has been worsening, but expect improvement with more diuresis. Started Amiodarone 200mg qday. 03/02/2025: No overnight events, todays weight 246, we will continue bumex drip. NIF today as -12, we will re-evaluate tomorrow to attempt extubation. Midodrine decreased to 5 q6hr 03/03/2025: Patient was seen examined at bedside this morning. No acute overnight events. Patient was taken off the Precedex yesterday night. Today's weight is 242 kg. Succesfull extubation today, will transition to bipap. 03/06/2025: Was notified by floors team that patient is tachypneic in the 40s with increased work of breathing, confusion, and agitation. He was AAOx 1 (name) and saying leave me alone. He continues to pull at his BIPAP and had to be restrained, with a sitter at bedside. His BIPAP settings were uptitrated from 10/5 to 16/6 without significant improvement of PCO2. Repeat ABG showed pH 7.37 with CO2 at 74. Floor team attempted to notify family with no answer. He remains confused and agitated. Patient to be intubated due to worsening respiratory effort. 03/06/2025: Patient was seen and examined at bedside this morning. He was sedated in the morning, but was weaned off. Patient was able to follow commands he understood and was able to at least answer yes and no questions. Patient was placed on spontaneous breathing trial, but his RSBI was in the 130s therefore patient was high risk to fail extubation at this time. Placed patient back on prior ventilator settings, will follow any sedation at this time as she is calm. Sedation will be placed if patient becomes agitated. Patient is diuresing well and his current weight today is 227 kilograms. Gave metolazone 10 mg x 1 today for additional diuresis and started tube feeds today. Will reattempt weaning parameters tomorrow for possible extubation. 03/07/2025: Patient seen and examined at bedside this morning. No overnight events. Patient's weight today was 226.4 kg. Patient's blood gas that showed a pH of 7.46, PCO2 of 53, and PO2 of 65 this most likely his baseline PCO2. Patient initially did not get his Bumex as it was discontinued the night prior, but today we will continue Bumex 1 mg twice daily. Chest x-ray that showed some more vascular congestion, but still on and physical exam was clear bilaterally. Patient passed spontaneous breathing trial and was extubated successfully today. At this time we will downgrade back to the medical floors. 03/10/2025: Patient was upgraded today at approximately 15:30 for intubation due to declining mentation on the BiPAP, despite remaining on BiPAP for majority of the last 24 hours. Patient was no longer able to answer questions and not following commands. Patient's decision-maker was contacted who consented for intubation. ABG in the morning had shown pH 7.31, pCO2 81, pO2 63, HCO3 41. Will start fentanyl and propofol. Will continue amiodarone PO dose through OG tube. If HR not rate controlled resume metoprolol XL as well. Will continue to hold the Bumex due to worsening KENIA and soft BPs. 03/11/2025: Patient seen and examined at bedside this morning. No acute overnight events. Patient is on sedation, will try and wean down sedation to assess his neurological status at this time. Patient's kidney function continue to worsen with creatinine going up to 2.2, but at this time chest x-ray showed a lot of congestion therefore we will restart Bumex 1 mg twice daily. ABG today shows some respiratory alkalosis with pH of 7.48, pCO2 of 54, and PO2 of 67. Patient has already been upgraded multiple times to the ICU requiring intubation during this hospital stay due to similar symptoms. Patient will most likely benefit from a tracheostomy at this point to overcome the anatomical issues causing him to become hypoxic and hypercapnic, will speak with patient's family and the patient himself once he is weaned off sedation.. Patient had no fevers and his WBCs are downtrending. 03/12/2025: Patient was seen and examined at bedside this morning. Overnight patient was a little bit agitated and biting on the tube therefore he was given a push of Versed. This morning will wean down sedation to possibly assess patient's neurological status and discussed the possibility of needing a tracheostomy with him. Chest x-ray does look a little bit better with less congestion today. GNR were stained in Sputum cultures. Patient's current weight is 220 kg. Will stop diuretics as patient kidney function is continuing to worsen. Will start free water flushes and give him some IV fluids today. Will speak about possible tracheostomy once he wakes up. I ws notified by patient's parent's that the patient is jehova's witness therefore would not want any blood products. 03/13/2025: Patient was seen and examined at bedside this morning. No acute overnight events. Patient's kidney function continues to worsen as his creatinine is 2.5 today, will give 1 L of IV fluids and will continue with free water flushes for now. Holding diuresis at this time. Patient did grow Enterobacter Cloacoe in the sputum which was sensitive to cefepime therefore we will continue with cefepime for now. Patient potassium was also low therefore gave 40 mEq x 1. Surgery plans for tracheostomy or Tuesday therefore holding Xarelto for now. Turned off all sedation and will reassess neurological status in the evening. 03/14/2025: No overnight events reported. Total urine output overnight 300 cc. No pyrexia reported. Precedex stopped at 7:35 AM. Scheduled trach at 12 PM. Patient examined at bedside. Patient continues to be mechanically ventilated on a PEEP of 8, FiO2 of 50 and tidal volume 420 thus nonverbal. Patient noted to have lower pedal edema. Patient's acute kidney injury unchanged from previous labs creatinine 2.5 and GFR of 28. Hypernatremia hyperosmolar. Morning ABG showing metabolic alkalosis with improved pCO2 of 50 and bicarb of 36. Patient is currently n.p.o. and scheduled for trach at 12 PM today. Restart heparin 6 hours after procedure. 03/15/2025: No overnight events. Afebrile overnight. Minimal urine output of 200 cc. Patient continues to remain off precedex. Tracheostomy, mechanically ventilated VT 420, PEEP 8, and flow 40/FiO2 of 60. Patient is alert and cooperative. Atrial fibrillation still present, on Amiodarone and Metoprolol Tartrate. Bumex drip 1 mg/hr plus daily albumin. Nephrology consulted given poor kidney function, renal us, urinalysis, uric acid, and albumin-Cr ration, and total urine. Patient scheduled for PEG tube tomorrow, please discontinue heparin drip tomorrow morning. 03/16/2025: Patient agitated overnight and was given lorazepam and olanzapine. He had UOP 1600 overnight. Swanz catheter was floated this morning: RAP 25 PAP 38 PCWP 23, all high pressures. PAWO2 obtained was 67%. Using Kenneth's formula, the cardiac output is 8.3 L/min, caridac index 2.7, and stroke volume 83. Given his high cardiac output and elevated RA pressures, will start bumex ggt. The patient is also hypernatremic at 150 with a free water deficit of 4L for a goal Na of 145. We will start free water flushes at 250cc/hr. Plan for PEG tube placement this afternoon. Exam Vital Signs Temp Pulse Resp BP Pulse Ox O2 Del Method O2 Flow Rate 96.9 F 118 H 22 H 141/96 H 94 L Mechanical Ventilation 5 03/16/25 04:01 03/16/25 08:46 03/14/25 15:01 03/16/25 08:46 03/16/25 06:46 03/15/25 16:00 03/10/25 11:46 FiO2 60 03/16/25 06:46 Narrative Exam Constitutional: NAD. Awake, alert. Mouthing words, following commands. HEENT: NCAT. Vision grossly intact. Mucous membranes dry. Respiratory: Decreased breath sounds bilaterally. Tracheal tube in place. Cardiac: Irregular. Abdomen: Soft, non-distended, non-tender. MSK: 3-4+ bilateral LE edema. Skin: Warm, dry, intact. Objective Labs 03/20/25 04:36 03/20/25 04:36 Labs: Laboratory Results - last 24 hr 03/15/25 03/15/25 03/16/25 15:57 21:48 04:54 WBC RBC Hgb Hct MCV MCH MCHC RDW Std Deviation Plt Count Neut % (Auto) Lymph % (Auto) Perkins % (Auto) Eos % (Auto) Baso % (Auto) Neut # (Auto) Lymph # (Auto) Perkins # (Auto) Eos # (Auto) Baso # (Auto) Immature Gran # (Auto) Absolute Nucleated RBC Immature Gran % Nucleated RBC % Puncture Site Left Brachial ABG pH 7.45 ABG pCO2 51 H ABG pO2 68 L ABG HCO3 35 H ABG O2 Saturation 95 ABG Base Excess 10 H FiO2 60 Sodium 143 Potassium 3.4 Chloride 103 Carbon Dioxide 30.8 Anion Gap 9 BUN 67 H Creatinine 2.5 H Estim Creat Clear Calc 55.1 L eGFR 28 L BUN/Creatinine Ratio 27 H Glucose 184 H Calculated Osmolality 309 H Uric Acid Calcium 8.8 Corrected Calcium 9.4 Phosphorus Magnesium Total Bilirubin 0.9 AST 33 ALT 22 Alkaline Phosphatase 113 Total Protein 6.0 Albumin 3.2 L Globulin 2.8 Albumin/Globulin Ratio 1.1 L Triglycerides Cholesterol LDL Cholesterol, Calc HDL Cholesterol Cholesterol/HDL Ratio Ur Collection Type Catheter Urine Color Yellow Urine Clarity Cloudy A Urine pH 5.0 Ur Specific [place] 1.017 Urine Protein Trace Urine Glucose (UA) Negative Urine Ketones Negative Urine Blood Trace Urine Nitrite Negative Urine Bilirubin Negative Urine Urobilinogen (Auto) Negative Ur Leukocyte Esterase Negative Urine RBC 1 Urine WBC 1 Ur Squamous Epith Cells 0 Uric Acid Crystals 3+ A Urine Bacteria 2+ A Ur Random Microalbumin 16 U Random Total Protein 99 H U Creat (Microalbumin) 104 Microalb/Creat Ratio 15 03/16/25 03/16/25 04:56 09:53 WBC 11.6 H RBC 4.48 L Hgb 12.5 L Hct 39.8 L MCV 89 MCH 27.9 MCHC 31.4 RDW Std Deviation 46.4 H Plt Count 303 D Neut % (Auto) 81 H Lymph % (Auto) 8 L Perkins % (Auto) 9 Eos % (Auto) 2 Baso % (Auto) 0 Neut # (Auto) 9.4 H Lymph # (Auto) 0.9 L Perkins # (Auto) 1.0 H Eos # (Auto) 0.2 Baso # (Auto) 0.1 Immature Gran # (Auto) 0.06 H Absolute Nucleated RBC 0.00 Immature Gran % 1 H Nucleated RBC % 0 Puncture Site Arterial Line ABG pH 7.48 H ABG pCO2 49 H ABG pO2 34 L* D ABG HCO3 37 H ABG O2 Saturation 67 L ABG Base Excess 12 H FiO2 60 Sodium 150 H Potassium 3.2 L Chloride 102 Carbon Dioxide 34.7 H Anion Gap 13 BUN 73 H Creatinine 2.5 H Estim Creat Clear Calc 55.1 L eGFR 28 L BUN/Creatinine Ratio 29 H Glucose 181 H Calculated Osmolality 324 H Uric Acid 9.0 Calcium 8.8 Corrected Calcium 9.4 Phosphorus 3.9 Magnesium 1.8 Total Bilirubin 0.9 AST 32 ALT 22 Alkaline Phosphatase 124 H Total Protein 6.2 Albumin 3.3 L Globulin 2.9 Albumin/Globulin Ratio 1.1 L Triglycerides 121 Cholesterol 155 LDL Cholesterol, Calc 102 HDL Cholesterol 29 L Cholesterol/HDL Ratio 5.3 Ur Collection Type Urine Color Urine Clarity Urine pH Ur Specific [place] Urine Protein Urine Glucose (UA) Urine Ketones Urine Blood Urine Nitrite Urine Bilirubin Urine Urobilinogen (Auto) Ur Leukocyte Esterase Urine RBC Urine WBC Ur Squamous Epith Cells Uric Acid Crystals Urine Bacteria Ur Random Microalbumin U Random Total Protein U Creat (Microalbumin) Microalb/Creat Ratio ABG Interpretation ABG results: 02/27/25 02/28/25 03/01/25 06:55 04:57 04:39 ABG pH 7.27 L 7.37 D 7.41 ABG pCO2 57 H 48 44 ABG pO2 101 78 L D 69 L ABG HCO3 26 28 H 28 H ABG O2 Saturation 98 95 93 ABG Base Excess -2 2 3 VBG pH VBG pCO2 VBG pO2 VBG Base Excess 03/01/25 03/01/25 03/02/25 13:15 14:52 04:25 ABG pH Cancelled 7.41 7.45 ABG pCO2 Cancelled 45 42 ABG pO2 Cancelled 53 L* 66 L ABG HCO3 Cancelled 28 H 29 H ABG O2 Saturation Cancelled 85 L 92 ABG Base Excess Cancelled 3 5 H VBG pH VBG pCO2 VBG pO2 VBG Base Excess 03/03/25 03/05/25 03/05/25 04:40 16:30 16:55 ABG pH 7.45 Cancelled 7.34 L D ABG pCO2 43 Cancelled 72 H* D ABG pO2 72 L Cancelled 83 ABG HCO3 30 H Cancelled 38 H ABG O2 Saturation 94 Cancelled 95 ABG Base Excess 5 H Cancelled 9 H VBG pH VBG pCO2 VBG pO2 VBG Base Excess 03/05/25 03/06/25 03/06/25 23:36 01:48 05:22 ABG pH 7.37 7.34 L 7.52 H D ABG pCO2 67 H 74 H* 47 D ABG pO2 150 H D 88 D 160 H D ABG HCO3 38 H 40 H 38 H ABG O2 Saturation 99 H 96 100 H ABG Base Excess 10 H 11 H 13 H VBG pH VBG pCO2 VBG pO2 VBG Base Excess 03/06/25 03/07/25 03/07/25 17:10 05:00 14:03 ABG pH 7.46 H ABG pCO2 53 H ABG pO2 65 L D ABG HCO3 38 H ABG O2 Saturation 93 ABG Base Excess 12 H VBG pH 7.50 7.52 VBG pCO2 50 47 VBG pO2 70 H 61 H VBG Base Excess 13 H 14 H 03/09/25 03/09/25 03/09/25 08:17 10:25 17:29 ABG pH 7.25 L D 7.29 L 7.29 L ABG pCO2 93 H* D 85 H* 88 H* ABG pO2 81 L 57 L* D 85 D ABG HCO3 41 H 40 H 43 H ABG O2 Saturation 95 89 L 97 ABG Base Excess 10 H 10 H 12 H VBG pH VBG pCO2 VBG pO2 VBG Base Excess 03/09/25 03/10/25 03/10/25 23:24 07:17 11:25 ABG pH 7.32 L 7.28 L 7.31 L ABG pCO2 78 H* D 90 H* D 81 H* ABG pO2 69 L 47 L* D 63 L ABG HCO3 40 H 43 H 41 H ABG O2 Saturation 94 80 L 93 ABG Base Excess 11 H 12 H 11 H VBG pH VBG pCO2 VBG pO2 VBG Base Excess 03/10/25 03/11/25 03/12/25 16:56 04:19 04:42 ABG pH 7.40 7.48 H 7.43 ABG pCO2 66 H D 54 H D 59 H ABG pO2 68 L 67 L 77 L ABG HCO3 41 H 40 H 39 H ABG O2 Saturation 94 94 96 ABG Base Excess 13 H 15 H 12 H VBG pH VBG pCO2 VBG pO2 VBG Base Excess 03/13/25 03/14/25 03/15/25 04:32 04:25 04:37 ABG pH 7.47 H 7.46 H 7.41 ABG pCO2 53 H 50 H 56 H ABG pO2 60 L 70 L 69 L ABG HCO3 38 H 36 H 35 H ABG O2 Saturation 93 95 95 ABG Base Excess 13 H 10 H 9 H VBG pH VBG pCO2 VBG pO2 VBG Base Excess 03/16/25 03/16/25 04:54 09:53 ABG pH 7.45 7.48 H ABG pCO2 51 H 49 H ABG pO2 68 L 34 L* D ABG HCO3 35 H 37 H ABG O2 Saturation 95 67 L ABG Base Excess 10 H 12 H VBG pH VBG pCO2 VBG pO2 VBG Base Excess Quality Measures Quality Measures sepsis Current suspected stage: ruled out Possible source: pulmonary Blood cultures ordered: completed in ED Antibiotic ordered: Yes Advance care planning discussed with:: patient Assessment & Plan Assessment Current Active Medications: Generic Name Dose Route Start Last Admin Trade Name Freq PRN Reason Stop Dose Admin Acetaminophen 650 mg 03/10/25 19:17 Acetaminophen 325 Mg Tablet PO 03/29/25 09:23 Q4HR PRN fever > 100.4 Al Hydrox/Mg Hydrox/Simethicone 30 ml 02/27/25 09:24 Mg Hyd/Al Hyd/Virgilio (Maalox Reg) Susp 30 Ml Udc PO 03/29/25 09:23 Q4HR PRN Heartburn or Upset Stomach Amiodarone HCl 200 mg 03/01/25 09:00 03/16/25 08:46 Amiodarone Hcl 200 Mg Tablet PO 03/31/25 08:59 200 mg QDAY KOURTNEY Administration Dextrose 25 ml 03/03/25 08:20 Dextrose 50%-Water Inj 50 Ml Syringe IV 04/02/25 08:19 Q15MIN PRN BG 50-70 responsive npo pt Dextrose 50 ml 03/03/25 08:20 Dextrose 50%-Water Inj 50 Ml Syringe IV 04/02/25 08:19 Q15MIN PRN BG <50 OR BG <70 & pt unresponsive Glucagon 1 mg 03/03/25 08:20 Glucagon Inj 1 Mg Vial IM Q15MIN PRN BG <70, and no IV access Heparin Sodium (Porcine) 7,500 unit 03/15/25 02:00 03/16/25 05:06 Heparin Sod Inj 5000 Unit/Ml Vial SC 03/29/25 01:59 Not Given Q8HR KOURTNEY Cefepime HCl 1 gm/ Sodium 50 mls @ 100 mls/hr 03/11/25 21:00 03/16/25 08:39 Chloride IV 03/18/25 20:59 100 mls/hr Q12HR KOURTNEY Administration Propofol 1,000 mg in 100 mls @ 6.801 mls/hr 03/12/25 13:18 Diprivan Ivpb IV 04/09/25 15:55 .[id number] PRN PER PROTOCOL Protocol 5 MCG/KG/MIN Dexmedetomidine/Sodium Chloride 400 mcg in 100 mls @ 11.305 mls/hr 03/12/25 14:03 03/14/25 07:54 Precedex Ivpb IV 04/11/25 14:02 Infused .[id number] PRN Titration Per PROTOCOL Protocol 0.2 MCG/KG/HR Albumin Human 25 gm in 100 mls @ 100 mls/hr 03/16/25 09:00 03/16/25 08:42 Albuminar-25 Ivpb IV 03/19/25 08:59 100 mls/hr QDAY KOURTNEY Administration Bumetanide 20 mg/ IV 80 mls @ 4 mls/hr 03/16/25 10:22 Miscellaneous Supplies IV 03/17/25 06:21 .Q20H KOURTNEY 1 MG/HR Insulin Human Lispro 0 unit 03/06/25 06:00 03/16/25 05:10 Insulin Lispro (Admelog) 1 Unit/0.01 Ml Unit SC 04/05/25 05:59 1 unit Q6H KOURTNEY Administration Protocol Magnesium Hydroxide 30 ml 02/27/25 09:24 Milk Of Magnesia Susp 30 Ml Udc PO 03/29/25 09:23 QDAY PRN CONSTIPATION Metoprolol Tartrate 100 mg 03/14/25 21:00 03/16/25 08:45 Metoprolol Tartrate 25 Mg Tablet PO 04/13/25 20:59 100 mg BID KOURTNEY Administration Ondansetron HCl 4 mg 03/05/25 20:46 03/09/25 03:49 Ondansetron Inj 2 Mg/Ml Inj 2 Ml IV 04/04/25 20:45 4 mg Q6HR PRN Administration NAUSEA OR VOMITING Protocol Pantoprazole Sodium 40 mg 02/27/25 11:15 03/16/25 08:47 Pantoprazole Inj 40 Mg Vial IV 03/29/25 11:14 40 mg QDAY KOURTNEY Administration Rivaroxaban 20 mg 03/04/25 17:30 03/12/25 13:27 Rivaroxaban 10 Mg Tablet PO 04/03/25 17:29 Not Given WSUPPER KOURTNEY Plan 64-year-old male with past medical history of DM2, hypertension, A-fib, and Jehova's witness was admitted to the ICU on 02/27/2025 for shock and acute hypoxic respiratory failure. 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 CVS: #Right diastolic CHF Echo could not visualize all chambers with limited ability to determine patient's ejection fraction. Given body habitus, history of obstructive sleep apnea and obesity hypoventilation syndrome, right heart failure suspected. Lower pedal edema likely combination of heart failure and third spacing. Swanz Mary 03/15 showed elevated RAP 25 PAP 38 PCWP 23. High cardiac output - Bumex ggt - Albumin - Daily weights - Strict I&O #Hx of A-fib [id number] score of 3 points indicating 3.2% risk of stroke per year Has bled score of 0 - Continue PO amiodarone 200 mg qday - Continue metoprolol - Holding xarelto due to upcoming procedure Respiratory: #Acute on chronic hypoxic and hypercapnic respiratory failure #Obesity hypoventilation syndrome and obstructive sleep apnea #Community-acquired pneumonia, Enterobacter Cloacoe Patient was intubated on 02/27/2025, extubated 03/03/2025. Reintubated on 03/06/2025 and extubated 03/07/2025. Reintubated 03/10/2025 for hypercapnic encephalopathy Tracheostomy tube placed 03/15 - Continue vent, wean as tolerated - Antibiotics, see ID section below Renal: #KENIA Pre-renal from cardiorenal and edema in the setting of third spacing, low albumin - Diuresis - Albumin - Nephrology following #Hypernatremia, Hyper-osmolar Free water deficit 4L for goal Na 145 - Free water flushes 250cc every 6 hours #Electrolytes Abnormalities Replete GI: PEG tube scheduled Tuesday Endo: #Morbid obesity Patient has a BMI of 79.5 #DM2 A1C 7.6 on 03/05/2025 - ISS - Hypoglycemia protocol ordered Heme: #Leukocytosis, improving ID: #Enterobacter cloacoe pneumonia Finished Rocephin (03/06/2025) - Continue cefepime 03/18/2025 Hospital Maintenance: Diet: tube feeds, on hold-schedule PEG tube on Tuesday DVT ppx: heparin GI ppx: protonix IV lines: PIV, central line sheath for Swanz; anticipate patient will benefit from PICC line anticipate on Tuesday Fuller: none Code status: Full code Dispo: ICU for acute on chronic hypoxic and hypercapnic respiratory failure. I have reviewed and discussed the patient's care with my attending, Dr. Kalpesh Rogers MD PGY-3 Attending Provider Attestation/Addendum Patient seen and examined with above resident, Jenny Rogers MD. I agree with the findings, assessment, and plan of care as documented except for any differences below. Patient with agitation overnight requiring sedation. This morning he remains somnolent though he does respond to verbal stimuli with attempts to open his eyes. Patient remains relaxed and we were able to transition to pressure support ventilation. Patient was laid down in supine position with repeat pulmonary artery catheterization. She findings and procedure note and numbers detailed above. Patient with likely component of group 2 and group 3 pulmonary hypertension. Fortunately, he does have rather high cardiac output. Also component of elevated pressures from use of positive pressure ventilation. Nonetheless, definitive information suggest need for ongoing aggressive diuresis which has been reassuring given concern for worsening renal function. Patient placed on Bumex with nephrology input we will adjust need for Diamox in the setting of worsening contraction alkalosis which will complicate his ability to be weaned from mechanical ventilation. Patient with significant right heart failure with component of likely left ventricular diastolic dysfunction. Continue control rate/rhythm with amiodarone and beta- blockade as tolerated. Unfortunately did lose enteral access the patient's agitation and we will need to ask gastroenterology to place new tube in the coming days. No tube feeds at this point. He remains on appropriate prophylaxis otherwise. Patient's parents were updated at bedside. Total critical care time: I personally spent 40 minutes for review of physiologic parameters, directing plan of care throughout the day, coordination of care with other subspecialists including cardiology and nephrology, and counseling patient's family at bedside. This is exclusive of time spent teaching housestaff or performing any separate billable procedures. Patient remains at risk for further morbidity and mortality warranting close monitoring and care only available in the intensive care unit. Patient receiving critical care services for acute on chronic hypoxic respiratory failure and decompensated acute on chronic right heart failure secondary to group 2/group 3 pulmonary hypertension.
--- NOTE | 2025-03-16 11:02 | PD.RESPRO ---
Documentation for date of: 03/16/25 Subjective Subjective Interval history: Mr. Ortega is a 64-year-old male with past medical history of DM2, hypertension, and A-fib Morbid obesity by BMIwas admitted to the ICU on 02/27/2025 after coming to the ED with complaints of altered mental status and shortness of breath. Patient was intubated in the ED therefore most of the history was taken from chart review and from the parents who are at bedside. EMS found the patient on the floor and he was saturating in the 70s even on high flow nasal cannula. Given his hypoxia patient was intubated in the ED. Patient spiked a fever while in the ED and he became hypotensive unresponsive to IV fluids therefore he was placed on vasopressors. During course of hospitalization patient had decreasing kidney function, patient notably edematous and has vascular congestion on x-ray, therefore was treated with Bumex. Despite diuresis therapy, patient kidney function continued to worsen, diuresis positive patient given free water flushes. Patient has had notably low albumin, ICU team recently started patient on albumin but not at the same time as diuretics. Nephrology was consulted due to worsening kidney function. Tracheostomy placed yesterday. Labs today show WBC 12.5, hemoglobin 12.1, platelets 346. Sodium 149, potassium 3.6, chloride 104, bicarb 33.5. BUN 76, creatinine 2.7, EGFR 25. Hemoglobin A1c 7.6%. 03/16/2025: Patient seen and examined at bedside. Patient had 0.5 L in, 1.8 L urinary output, length of stay net -1.6 L. UA showed trace protein and blood, 2+ bacteria, 3+ uric acid crystals, 99 total protein, 104 creatinine. Catheter showed elevated wedge pressure suspect right heart failure due to chronic pulmonary hypertension related to patient's weight. Sodium increased to 150, free water deficits 4.5 L. Bicarb 34.7, BUN 73, creatinine 2.5, EGFR 28. However improved to 3.3, uric acid 9.0. Renal ultrasound was taken, however was unable to visualize kidneys. Will continue to diurese patient and provide albumin, possibly will need dialysis starting Tuesday if does not improve. Exam Vital Signs Temp Pulse Resp BP Pulse Ox O2 Del Method O2 Flow Rate 96.9 F 100 22 H 117/87 H 96 Mechanical Ventilation 5 03/16/25 04:01 03/16/25 10:24 03/14/25 15:01 03/16/25 10:24 03/16/25 10:24 03/15/25 16:00 03/10/25 11:46 FiO2 60 03/16/25 10:24 Narrative Exam PE: Gen: Well-developed and well-nourished. Obese. HEENT: NCAT, PERRLA, EOMI, MMM, anicteric conjunctivae. CVS: normal S1 and S2. RRR. No M/R/G. Resp: CTA B/L. No rhonchi, rales, crackles or wheezing. Poor lung sounds due to body habitus. Coarse due to ventilator. Abd: soft, non-tender, non-distended. MSK: Good ROM in BUE & BLE. No rash. Diffuse 3+ pitting edema in all extremities. Lower extremities tense due to edema. Neuro: CN II-XII grossly intact. Tracheostomy in place. Objective Labs 03/17/25 05:47 03/17/25 05:47 Labs: Laboratory Results - last 24 hr 03/15/25 03/15/25 03/16/25 15:57 21:48 04:54 WBC RBC Hgb Hct MCV MCH MCHC RDW Std Deviation Plt Count Neut % (Auto) Lymph % (Auto) [place] % (Auto) Eos % (Auto) Baso % (Auto) Neut # (Auto) Lymph # (Auto) [place] # (Auto) Eos # (Auto) Baso # (Auto) Immature Gran # (Auto) Absolute Nucleated RBC Immature Gran % Nucleated RBC % Puncture Site Left Brachial ABG pH 7.45 ABG pCO2 51 H ABG pO2 68 L ABG HCO3 35 H ABG O2 Saturation 95 ABG Base Excess 10 H FiO2 60 Sodium 143 Potassium 3.4 Chloride 103 Carbon Dioxide 30.8 Anion Gap 9 BUN 67 H Creatinine 2.5 H Estim Creat Clear Calc 55.1 L eGFR 28 L BUN/Creatinine Ratio 27 H Glucose 184 H Calculated Osmolality 309 H Uric Acid Calcium 8.8 Corrected Calcium 9.4 Phosphorus Magnesium Total Bilirubin 0.9 AST 33 ALT 22 Alkaline Phosphatase 113 Total Protein 6.0 Albumin 3.2 L Globulin 2.8 Albumin/Globulin Ratio 1.1 L Triglycerides Cholesterol LDL Cholesterol, Calc HDL Cholesterol Cholesterol/HDL Ratio Ur Collection Type Catheter Urine Color Yellow Urine Clarity Cloudy A Urine pH 5.0 Ur Specific [place] 1.017 Urine Protein Trace Urine Glucose (UA) Negative Urine Ketones Negative Urine Blood Trace Urine Nitrite Negative Urine Bilirubin Negative Urine Urobilinogen (Auto) Negative Ur Leukocyte Esterase Negative Urine RBC 1 Urine WBC 1 Ur Squamous Epith Cells 0 Uric Acid Crystals 3+ A Urine Bacteria 2+ A Ur Random Microalbumin 16 U Random Total Protein 99 H U Creat (Microalbumin) 104 Microalb/Creat Ratio 15 03/16/25 03/16/25 04:56 09:53 WBC 11.6 H RBC 4.48 L Hgb 12.5 L Hct 39.8 L MCV 89 MCH 27.9 MCHC 31.4 RDW Std Deviation 46.4 H Plt Count 303 D Neut % (Auto) 81 H Lymph % (Auto) 8 L [place] % (Auto) 9 Eos % (Auto) 2 Baso % (Auto) 0 Neut # (Auto) 9.4 H Lymph # (Auto) 0.9 L [place] # (Auto) 1.0 H Eos # (Auto) 0.2 Baso # (Auto) 0.1 Immature Gran # (Auto) 0.06 H Absolute Nucleated RBC 0.00 Immature Gran % 1 H Nucleated RBC % 0 Puncture Site Arterial Line ABG pH 7.48 H ABG pCO2 49 H ABG pO2 34 L* D ABG HCO3 37 H ABG O2 Saturation 67 L ABG Base Excess 12 H FiO2 60 Sodium 150 H Potassium 3.2 L Chloride 102 Carbon Dioxide 34.7 H Anion Gap 13 BUN 73 H Creatinine 2.5 H Estim Creat Clear Calc 55.1 L eGFR 28 L BUN/Creatinine Ratio 29 H Glucose 181 H Calculated Osmolality 324 H Uric Acid 9.0 Calcium 8.8 Corrected Calcium 9.4 Phosphorus 3.9 Magnesium 1.8 Total Bilirubin 0.9 AST 32 ALT 22 Alkaline Phosphatase 124 H Total Protein 6.2 Albumin 3.3 L Globulin 2.9 Albumin/Globulin Ratio 1.1 L Triglycerides 121 Cholesterol 155 LDL Cholesterol, Calc 102 HDL Cholesterol 29 L Cholesterol/HDL Ratio 5.3 Ur Collection Type Urine Color Urine Clarity Urine pH Ur Specific [place] Urine Protein Urine Glucose (UA) Urine Ketones Urine Blood Urine Nitrite Urine Bilirubin Urine Urobilinogen (Auto) Ur Leukocyte Esterase Urine RBC Urine WBC Ur Squamous Epith Cells Uric Acid Crystals Urine Bacteria Ur Random Microalbumin U Random Total Protein U Creat (Microalbumin) Microalb/Creat Ratio ABG Interpretation ABG results: 02/27/25 02/28/25 03/01/25 06:55 04:57 04:39 ABG pH 7.27 L 7.37 D 7.41 ABG pCO2 57 H 48 44 ABG pO2 101 78 L D 69 L ABG HCO3 26 28 H 28 H ABG O2 Saturation 98 95 93 ABG Base Excess -2 2 3 VBG pH VBG pCO2 VBG pO2 VBG Base Excess 03/01/25 03/01/25 03/02/25 13:15 14:52 04:25 ABG pH Cancelled 7.41 7.45 ABG pCO2 Cancelled 45 42 ABG pO2 Cancelled 53 L* 66 L ABG HCO3 Cancelled 28 H 29 H ABG O2 Saturation Cancelled 85 L 92 ABG Base Excess Cancelled 3 5 H VBG pH VBG pCO2 VBG pO2 VBG Base Excess 03/03/25 03/05/25 03/05/25 04:40 16:30 16:55 ABG pH 7.45 Cancelled 7.34 L D ABG pCO2 43 Cancelled 72 H* D ABG pO2 72 L Cancelled 83 ABG HCO3 30 H Cancelled 38 H ABG O2 Saturation 94 Cancelled 95 ABG Base Excess 5 H Cancelled 9 H VBG pH VBG pCO2 VBG pO2 VBG Base Excess 03/05/25 03/06/25 03/06/25 23:36 01:48 05:22 ABG pH 7.37 7.34 L 7.52 H D ABG pCO2 67 H 74 H* 47 D ABG pO2 150 H D 88 D 160 H D ABG HCO3 38 H 40 H 38 H ABG O2 Saturation 99 H 96 100 H ABG Base Excess 10 H 11 H 13 H VBG pH VBG pCO2 VBG pO2 VBG Base Excess 03/06/25 03/07/25 03/07/25 17:10 05:00 14:03 ABG pH 7.46 H ABG pCO2 53 H ABG pO2 65 L D ABG HCO3 38 H ABG O2 Saturation 93 ABG Base Excess 12 H VBG pH 7.50 7.52 VBG pCO2 50 47 VBG pO2 70 H 61 H VBG Base Excess 13 H 14 H 03/09/25 03/09/25 03/09/25 08:17 10:25 17:29 ABG pH 7.25 L D 7.29 L 7.29 L ABG pCO2 93 H* D 85 H* 88 H* ABG pO2 81 L 57 L* D 85 D ABG HCO3 41 H 40 H 43 H ABG O2 Saturation 95 89 L 97 ABG Base Excess 10 H 10 H 12 H VBG pH VBG pCO2 VBG pO2 VBG Base Excess 03/09/25 03/10/25 03/10/25 23:24 07:17 11:25 ABG pH 7.32 L 7.28 L 7.31 L ABG pCO2 78 H* D 90 H* D 81 H* ABG pO2 69 L 47 L* D 63 L ABG HCO3 40 H 43 H 41 H ABG O2 Saturation 94 80 L 93 ABG Base Excess 11 H 12 H 11 H VBG pH VBG pCO2 VBG pO2 VBG Base Excess 03/10/25 03/11/25 03/12/25 16:56 04:19 04:42 ABG pH 7.40 7.48 H 7.43 ABG pCO2 66 H D 54 H D 59 H ABG pO2 68 L 67 L 77 L ABG HCO3 41 H 40 H 39 H ABG O2 Saturation 94 94 96 ABG Base Excess 13 H 15 H 12 H VBG pH VBG pCO2 VBG pO2 VBG Base Excess 03/13/25 03/14/25 03/15/25 04:32 04:25 04:37 ABG pH 7.47 H 7.46 H 7.41 ABG pCO2 53 H 50 H 56 H ABG pO2 60 L 70 L 69 L ABG HCO3 38 H 36 H 35 H ABG O2 Saturation 93 95 95 ABG Base Excess 13 H 10 H 9 H VBG pH VBG pCO2 VBG pO2 VBG Base Excess 03/16/25 03/16/25 04:54 09:53 ABG pH 7.45 7.48 H ABG pCO2 51 H 49 H ABG pO2 68 L 34 L* D ABG HCO3 35 H 37 H ABG O2 Saturation 95 67 L ABG Base Excess 10 H 12 H VBG pH VBG pCO2 VBG pO2 VBG Base Excess Quality Measures Quality Measures sepsis Current suspected stage: sepsis Possible source: pulmonary Blood cultures ordered: completed in ED Antibiotic ordered: Yes Advance care planning discussed with:: patient Assessment & Plan Assessment Current Active Medications: Generic Name Dose Route Start Last Admin Trade Name Freq PRN Reason Stop Dose Admin Acetaminophen 650 mg 03/10/25 19:17 Acetaminophen 325 Mg Tablet PO 03/29/25 09:23 Q4HR PRN fever > 100.4 Al Hydrox/Mg Hydrox/Simethicone 30 ml 02/27/25 09:24 Mg Hyd/Al Hyd/Virgilio (Maalox Reg) Susp 30 Ml Udc PO 03/29/25 09:23 Q4HR PRN Heartburn or Upset Stomach Amiodarone HCl 200 mg 03/01/25 09:00 03/16/25 08:46 Amiodarone Hcl 200 Mg Tablet PO 03/31/25 08:59 200 mg QDAY KOURTNEY Administration Dextrose 25 ml 03/03/25 08:20 Dextrose 50%-Water Inj 50 Ml Syringe IV 04/02/25 08:19 Q15MIN PRN BG 50-70 responsive npo pt Dextrose 50 ml 03/03/25 08:20 Dextrose 50%-Water Inj 50 Ml Syringe IV 04/02/25 08:19 Q15MIN PRN BG <50 OR BG <70 & pt unresponsive Glucagon 1 mg 03/03/25 08:20 Glucagon Inj 1 Mg Vial IM Q15MIN PRN BG <70, and no IV access Heparin Sodium (Porcine) 7,500 unit 03/15/25 02:00 03/16/25 05:06 Heparin Sod Inj 5000 Unit/Ml Vial SC 03/29/25 01:59 Not Given Q8HR KOURTNEY Cefepime HCl 1 gm/ Sodium 50 mls @ 100 mls/hr 03/11/25 21:00 03/16/25 08:39 Chloride IV 03/18/25 20:59 100 mls/hr Q12HR KOURTNEY Administration Propofol 1,000 mg in 100 mls @ 6.801 mls/hr 03/12/25 13:18 Diprivan Ivpb IV 04/09/25 15:55 .[id number] PRN PER PROTOCOL Protocol 5 MCG/KG/MIN Dexmedetomidine/Sodium Chloride 400 mcg in 100 mls @ 11.305 mls/hr 03/12/25 14:03 03/14/25 07:54 Precedex Ivpb IV 04/11/25 14:02 Infused .[id number] PRN Titration Per PROTOCOL Protocol 0.2 MCG/KG/HR Albumin Human 25 gm in 100 mls @ 100 mls/hr 03/16/25 09:00 03/16/25 08:42 Albuminar-25 Ivpb IV 03/19/25 08:59 100 mls/hr QDAY KOURTNEY Administration Bumetanide 20 mg/ IV 80 mls @ 4 mls/hr 03/16/25 10:22 Miscellaneous Supplies IV 03/17/25 06:21 .Q20H KOURTNEY 1 MG/HR Insulin Human Lispro 0 unit 03/06/25 06:00 03/16/25 05:10 Insulin Lispro (Admelog) 1 Unit/0.01 Ml Unit SC 04/05/25 05:59 1 unit Q6H KOURTNEY Administration Protocol Magnesium Hydroxide 30 ml 02/27/25 09:24 Milk Of Magnesia Susp 30 Ml Udc PO 03/29/25 09:23 QDAY PRN CONSTIPATION Metoprolol Tartrate 100 mg 03/14/25 21:00 03/16/25 08:45 Metoprolol Tartrate 25 Mg Tablet PO 04/13/25 20:59 100 mg BID KOURTNEY Administration Ondansetron HCl 4 mg 03/05/25 20:46 03/09/25 03:49 Ondansetron Inj 2 Mg/Ml Inj 2 Ml IV 04/04/25 20:45 4 mg Q6HR PRN Administration NAUSEA OR VOMITING Protocol Pantoprazole Sodium 40 mg 02/27/25 11:15 03/16/25 08:47 Pantoprazole Inj 40 Mg Vial IV 03/29/25 11:14 40 mg QDAY KOURTNEY Administration Rivaroxaban 20 mg 03/04/25 17:30 03/12/25 13:27 Rivaroxaban 10 Mg Tablet PO 04/03/25 17:29 Not Given WSUPPER KOURTNEY Plan 64-year-old male with past medical history of DM2, hypertension, and A-fib was admitted to the ICU on 02/27/2025 for acute hypoxic respiratory failure and altered mental status requiring intubation. Nephrology consulted for acute renal failure with worsening kidney function. #KENIA #Metabolic alkalosis #Hypernatremia, Hyper-osmolar Patient has no history of chronic kidney disease. Patient developed KENIA with worsening renal function during hospitalization. Initially suspected of cardiorenal syndrome, was treated with IV Bumex. Despite diuretic therapy patient kidney function continued to worsen. Suspect currently in ATN. Bumex was held, patient started on free water flushes. Patient continued to have worsening kidney function. Patient started on albumin today. Patient appears intravascularly depleted and intravascularly fluid overloaded. Ultrasound taken, unable to visualize kidneys. Urinalysis done showing trace blood, trace protein, 3+ uric acid crystals, 2+ bacteria. Urine total protein 99, urine creatinine 104. Nephrotic proteinuria ruled out, suspect KENIA related to right heart failure in the setting of elevated cardiac wedge pressure. -Avoid nephrotoxic agent -Renally dose medication -Monitor daily labs -Continue free water flushes with goal of slow correction of free water deficit 4.5 L -Recommend albumin with Bumex drip for Significant anasarca In the setting of hypoalbuminemia #Acute encephalopathy #Right diastolic CHF #Hx of A-fib #Acute on chronic hypoxic and hypercapnic respiratory failure #Obesity hypoventilation syndrome and obstructive sleep apnea #Community-acquired pneumonia, Enterobacter [place] #Morbid obesity #DM2 #Community-acquired pneumonia, Enterobacter cloacoe Management as per primary team Thank you for allowing us to participate in the care of this patient. Management discussed with attending Dr. Gannon. Anil Rodriguez MD PGY?1 Attending Provider Attestation/Addendum Patient seen and examined with resident physician Dr. Campos. Note reviewed, agree with findings and recommendations. 03/16/2025 Morbidly obese gentleman presented with acute hypoxic/hypercarbic respiratory failure. On ventilator. Significant anasarca noted. Diuretics were given yesterday based on the wedge pressure being very high. Current Wiley-Mary also showing wedge 24. Agree with diuretics. Patient made some urine. Currently in KENIA. Hypernatremia-on free water flushes. Agree with diuretics with albumin. If no improvement in the renal function or if patient continues to be in significant anasarcic state-he might need sequential ultrafiltration. Plan of care discussed with ICU team.
[2025-03-16] MEDS: BUMETANIDE INJ 20 MG in CONTAINER,EMPTY 50 ML 1 BAG 4 MG IV (11:15)
--- NOTE | 2025-03-16 11:33 | ESPR_ITS ---
<Statement entered by Lenora John MD - 03/16/25 16:22> I examined the patient personally evaluate the patient intensive care and remains critical condition not require any vasopressors were receiving IV Bumex 1600 urine output condition remains critical vital signs remained stable A-fib rate controlled well. Continue aggressive diuretic therapy monitoring central pressures for now PA pressure was still elevated diastolic was elevated suggesting the left heart pressures are elevated as well hence continue IV diuretic therapy as long right heart pressures elevated renal function might improve by lowering right atrial pressure and central venous pressures might help improve the GFR. Discussed and discussed with ICU team as well as primary team and will continue to monitor the patient's progress in ICU. Condition remains critical prognosis guarded. Documentation for date of: 03/16/25 Subjective Subjective Interval history: Patient was examined bedside this morning, no acute overnight events. Yesterday his urine output was 1600 cc with -1400 cc . ICU team tried another Lorain catheter today which showed RA pressure of 25, PA pressure of 38, PCWP of 23. Plan is to continue Bumex for him. Peg placement today by Dr. Doty Exam Vital Signs Temp Pulse Resp BP Pulse Ox O2 Del Method O2 Flow Rate 96.7 F L 106 H 22 H 123/88 H 97 Mechanical Ventilation 5 03/16/25 07:03 03/16/25 11:00 03/14/25 15:01 03/16/25 11:00 03/16/25 11:00 03/15/25 16:00 03/10/25 11:46 FiO2 60 03/16/25 10:24 Narrative Exam GENERAL: Adult male who has trached in place HEENT: Normocephalic, atraumatic. Pupils are equal and reactive. Oral mucosa is moist. NECK: Supple, nontender, no JVD CARDIOVASCULAR:Irregularly irregular. S1/S2. no murmur or gallop rub or extra beats. LUNGS: Clear to auscultation bilaterally with symmetrical chest rise. No laboring tachypnea or wheezing. No intercostal subcostal retraction. No rales and no rhonchi. ABDOMEN: Soft, flat, nontender to palpation, no guarding or rebound tenderness. Active and normal bowel sounds. EXTREMITIES:Moves all 4 extremities, SKIN: Warm and dry, no jaundice.generalized anasarca improving Objective Labs 03/16/25 04:56 03/16/25 04:56 Labs: Laboratory Results - last 24 hr 03/15/25 03/15/25 03/16/25 15:57 21:48 04:54 WBC RBC Hgb Hct MCV MCH MCHC RDW Std Deviation Plt Count Neut % (Auto) Lymph % (Auto) Perry % (Auto) Eos % (Auto) Baso % (Auto) Neut # (Auto) Lymph # (Auto) Perry # (Auto) Eos # (Auto) Baso # (Auto) Immature Gran # (Auto) Absolute Nucleated RBC Immature Gran % Nucleated RBC % Puncture Site Left Brachial ABG pH 7.45 ABG pCO2 51 H ABG pO2 68 L ABG HCO3 35 H ABG O2 Saturation 95 ABG Base Excess 10 H FiO2 60 Sodium 143 Potassium 3.4 Chloride 103 Carbon Dioxide 30.8 Anion Gap 9 BUN 67 H Creatinine 2.5 H Estim Creat Clear Calc 55.1 L eGFR 28 L BUN/Creatinine Ratio 27 H Glucose 184 H Calculated Osmolality 309 H Uric Acid Calcium 8.8 Corrected Calcium 9.4 Phosphorus Magnesium Total Bilirubin 0.9 AST 33 ALT 22 Alkaline Phosphatase 113 Total Protein 6.0 Albumin 3.2 L Globulin 2.8 Albumin/Globulin Ratio 1.1 L Triglycerides Cholesterol LDL Cholesterol, Calc HDL Cholesterol Cholesterol/HDL Ratio Ur Collection Type Catheter Urine Color Yellow Urine Clarity Cloudy A Urine pH 5.0 Ur Specific [place] 1.017 Urine Protein Trace Urine Glucose (UA) Negative Urine Ketones Negative Urine Blood Trace Urine Nitrite Negative Urine Bilirubin Negative Urine Urobilinogen (Auto) Negative Ur Leukocyte Esterase Negative Urine RBC 1 Urine WBC 1 Ur Squamous Epith Cells 0 Uric Acid Crystals 3+ A Urine Bacteria 2+ A Ur Random Microalbumin 16 U Random Total Protein 99 H U Creat (Microalbumin) 104 Microalb/Creat Ratio 15 03/16/25 03/16/25 04:56 09:53 WBC 11.6 H RBC 4.48 L Hgb 12.5 L Hct 39.8 L MCV 89 MCH 27.9 MCHC 31.4 RDW Std Deviation 46.4 H Plt Count 303 D Neut % (Auto) 81 H Lymph % (Auto) 8 L Perry % (Auto) 9 Eos % (Auto) 2 Baso % (Auto) 0 Neut # (Auto) 9.4 H Lymph # (Auto) 0.9 L Perry # (Auto) 1.0 H Eos # (Auto) 0.2 Baso # (Auto) 0.1 Immature Gran # (Auto) 0.06 H Absolute Nucleated RBC 0.00 Immature Gran % 1 H Nucleated RBC % 0 Puncture Site Arterial Line ABG pH 7.48 H ABG pCO2 49 H ABG pO2 34 L* D ABG HCO3 37 H ABG O2 Saturation 67 L ABG Base Excess 12 H FiO2 60 Sodium 150 H Potassium 3.2 L Chloride 102 Carbon Dioxide 34.7 H Anion Gap 13 BUN 73 H Creatinine 2.5 H Estim Creat Clear Calc 55.1 L eGFR 28 L BUN/Creatinine Ratio 29 H Glucose 181 H Calculated Osmolality 324 H Uric Acid 9.0 Calcium 8.8 Corrected Calcium 9.4 Phosphorus 3.9 Magnesium 1.8 Total Bilirubin 0.9 AST 32 ALT 22 Alkaline Phosphatase 124 H Total Protein 6.2 Albumin 3.3 L Globulin 2.9 Albumin/Globulin Ratio 1.1 L Triglycerides 121 Cholesterol 155 LDL Cholesterol, Calc 102 HDL Cholesterol 29 L Cholesterol/HDL Ratio 5.3 Ur Collection Type Urine Color Urine Clarity Urine pH Ur Specific [place] Urine Protein Urine Glucose (UA) Urine Ketones Urine Blood Urine Nitrite Urine Bilirubin Urine Urobilinogen (Auto) Ur Leukocyte Esterase Urine RBC Urine WBC Ur Squamous Epith Cells Uric Acid Crystals Urine Bacteria Ur Random Microalbumin U Random Total Protein U Creat (Microalbumin) Microalb/Creat Ratio ABG Interpretation ABG results: 02/27/25 02/28/25 03/01/25 06:55 04:57 04:39 ABG pH 7.27 L 7.37 D 7.41 ABG pCO2 57 H 48 44 ABG pO2 101 78 L D 69 L ABG HCO3 26 28 H 28 H ABG O2 Saturation 98 95 93 ABG Base Excess -2 2 3 VBG pH VBG pCO2 VBG pO2 VBG Base Excess 03/01/25 03/01/25 03/02/25 13:15 14:52 04:25 ABG pH Cancelled 7.41 7.45 ABG pCO2 Cancelled 45 42 ABG pO2 Cancelled 53 L* 66 L ABG HCO3 Cancelled 28 H 29 H ABG O2 Saturation Cancelled 85 L 92 ABG Base Excess Cancelled 3 5 H VBG pH VBG pCO2 VBG pO2 VBG Base Excess 03/03/25 03/05/25 03/05/25 04:40 16:30 16:55 ABG pH 7.45 Cancelled 7.34 L D ABG pCO2 43 Cancelled 72 H* D ABG pO2 72 L Cancelled 83 ABG HCO3 30 H Cancelled 38 H ABG O2 Saturation 94 Cancelled 95 ABG Base Excess 5 H Cancelled 9 H VBG pH VBG pCO2 VBG pO2 VBG Base Excess 03/05/25 03/06/25 03/06/25 23:36 01:48 05:22 ABG pH 7.37 7.34 L 7.52 H D ABG pCO2 67 H 74 H* 47 D ABG pO2 150 H D 88 D 160 H D ABG HCO3 38 H 40 H 38 H ABG O2 Saturation 99 H 96 100 H ABG Base Excess 10 H 11 H 13 H VBG pH VBG pCO2 VBG pO2 VBG Base Excess 03/06/25 03/07/25 03/07/25 17:10 05:00 14:03 ABG pH 7.46 H ABG pCO2 53 H ABG pO2 65 L D ABG HCO3 38 H ABG O2 Saturation 93 ABG Base Excess 12 H VBG pH 7.50 7.52 VBG pCO2 50 47 VBG pO2 70 H 61 H VBG Base Excess 13 H 14 H 03/09/25 03/09/25 03/09/25 08:17 10:25 17:29 ABG pH 7.25 L D 7.29 L 7.29 L ABG pCO2 93 H* D 85 H* 88 H* ABG pO2 81 L 57 L* D 85 D ABG HCO3 41 H 40 H 43 H ABG O2 Saturation 95 89 L 97 ABG Base Excess 10 H 10 H 12 H VBG pH VBG pCO2 VBG pO2 VBG Base Excess 03/09/25 03/10/25 03/10/25 23:24 07:17 11:25 ABG pH 7.32 L 7.28 L 7.31 L ABG pCO2 78 H* D 90 H* D 81 H* ABG pO2 69 L 47 L* D 63 L ABG HCO3 40 H 43 H 41 H ABG O2 Saturation 94 80 L 93 ABG Base Excess 11 H 12 H 11 H VBG pH VBG pCO2 VBG pO2 VBG Base Excess 03/10/25 03/11/25 03/12/25 16:56 04:19 04:42 ABG pH 7.40 7.48 H 7.43 ABG pCO2 66 H D 54 H D 59 H ABG pO2 68 L 67 L 77 L ABG HCO3 41 H 40 H 39 H ABG O2 Saturation 94 94 96 ABG Base Excess 13 H 15 H 12 H VBG pH VBG pCO2 VBG pO2 VBG Base Excess 03/13/25 03/14/25 03/15/25 04:32 04:25 04:37 ABG pH 7.47 H 7.46 H 7.41 ABG pCO2 53 H 50 H 56 H ABG pO2 60 L 70 L 69 L ABG HCO3 38 H 36 H 35 H ABG O2 Saturation 93 95 95 ABG Base Excess 13 H 10 H 9 H VBG pH VBG pCO2 VBG pO2 VBG Base Excess 03/16/25 03/16/25 04:54 09:53 ABG pH 7.45 7.48 H ABG pCO2 51 H 49 H ABG pO2 68 L 34 L* D ABG HCO3 35 H 37 H ABG O2 Saturation 95 67 L ABG Base Excess 10 H 12 H VBG pH VBG pCO2 VBG pO2 VBG Base Excess Quality Measures Quality Measures sepsis Current suspected stage: sepsis Possible source: pulmonary Blood cultures ordered: completed in ED Antibiotic ordered: Yes Advance care planning discussed with:: patient Assessment & Plan Assessment Current Active Medications: Generic Name Dose Route Start Last Admin Trade Name Freq PRN Reason Stop Dose Admin Acetaminophen 650 mg 03/10/25 19:17 Acetaminophen 325 Mg Tablet PO 03/29/25 09:23 Q4HR PRN fever > 100.4 Al Hydrox/Mg Hydrox/Simethicone 30 ml 02/27/25 09:24 Mg Hyd/Al Hyd/Virgilio (Maalox Reg) Susp 30 Ml Udc PO 03/29/25 09:23 Q4HR PRN Heartburn or Upset Stomach Amiodarone HCl 200 mg 03/01/25 09:00 03/16/25 08:46 Amiodarone Hcl 200 Mg Tablet PO 03/31/25 08:59 200 mg QDAY KOURTNEY Administration Dextrose 25 ml 03/03/25 08:20 Dextrose 50%-Water Inj 50 Ml Syringe IV 04/02/25 08:19 Q15MIN PRN BG 50-70 responsive npo pt Dextrose 50 ml 03/03/25 08:20 Dextrose 50%-Water Inj 50 Ml Syringe IV 04/02/25 08:19 Q15MIN PRN BG <50 OR BG <70 & pt unresponsive Glucagon 1 mg 03/03/25 08:20 Glucagon Inj 1 Mg Vial IM Q15MIN PRN BG <70, and no IV access Heparin Sodium (Porcine) 7,500 unit 03/15/25 02:00 03/16/25 05:06 Heparin Sod Inj 5000 Unit/Ml Vial SC 03/29/25 01:59 Not Given Q8HR KOURTNEY Cefepime HCl 1 gm/ Sodium 50 mls @ 100 mls/hr 03/11/25 21:00 03/16/25 08:39 Chloride IV 03/18/25 20:59 100 mls/hr Q12HR KOURTNEY Administration Propofol 1,000 mg in 100 mls @ 6.801 mls/hr 03/12/25 13:18 Diprivan Ivpb IV 04/09/25 15:55 .[id number] PRN PER PROTOCOL Protocol 5 MCG/KG/MIN Dexmedetomidine/Sodium Chloride 400 mcg in 100 mls @ 11.305 mls/hr 03/12/25 14:03 03/14/25 07:54 Precedex Ivpb IV 04/11/25 14:02 Infused .[id number] PRN Titration Per PROTOCOL Protocol 0.2 MCG/KG/HR Albumin Human 25 gm in 100 mls @ 100 mls/hr 03/16/25 09:00 03/16/25 08:42 Albuminar-25 Ivpb IV 03/19/25 08:59 100 mls/hr QDAY KOURTNEY Administration Bumetanide 20 mg/ IV 80 mls @ 4 mls/hr 03/16/25 10:22 03/16/25 11:15 Miscellaneous Supplies IV 03/17/25 06:21 1 mg/hr .Q20H KOURTNEY 4 mls/hr Administration 1 MG/HR Insulin Human Lispro 0 unit 03/06/25 06:00 03/16/25 05:10 Insulin Lispro (Admelog) 1 Unit/0.01 Ml Unit SC 04/05/25 05:59 1 unit Q6H KOURTNEY Administration Protocol Magnesium Hydroxide 30 ml 02/27/25 09:24 Milk Of Magnesia Susp 30 Ml Udc PO 03/29/25 09:23 QDAY PRN CONSTIPATION Metoprolol Tartrate 100 mg 03/14/25 21:00 03/16/25 08:45 Metoprolol Tartrate 25 Mg Tablet PO 04/13/25 20:59 100 mg BID KOURTNEY Administration Ondansetron HCl 4 mg 03/05/25 20:46 03/09/25 03:49 Ondansetron Inj 2 Mg/Ml Inj 2 Ml IV 04/04/25 20:45 4 mg Q6HR PRN Administration NAUSEA OR VOMITING Protocol Pantoprazole Sodium 40 mg 02/27/25 11:15 03/16/25 08:47 Pantoprazole Inj 40 Mg Vial IV 03/29/25 11:14 40 mg QDAY KOURTNEY Administration Rivaroxaban 20 mg 03/04/25 17:30 03/12/25 13:27 Rivaroxaban 10 Mg Tablet PO 04/03/25 17:29 Not Given WSUPPER KOURTNEY Plan 64-year-old male with significant past medical history of hypertension, diabetes mellitus, A-fib was admitted to the ICU on 02/27/2025 after coming in with altered mental status and shortness of breath, intubated for acute hypoxic respiratory failure and had suspected obesity hypoventilation syndrome/obstructive sleep apnea/pneumonia and acute kidney injury. He was extubated on 03/03 and downgraded then re-intubated on 03/06 due to confusion and tachypneia. He was then extubated and downgraded to the floor on 03/07. On 03/10, patient again had decreased mentation on the BiPAP so was reintubated and upgraded. Cardiology has been consulted for suspected heart failure. #Right congestive heart failure with preserved EF #Severe BASIA/OHS Echo on this admission showed poor quality images secondary to the patient's body habitus so was a technically limited study. Suspect chronic right heart failure in the setting of chronic obesity hypoventilation syndrome and obstructive sleep apnea. Currently appears to be more pulmonary component to respiratory failure than cardiac. Requiring ventilation support. -Hold diuresis with bumetanide 2 mg IV BID, due to worsening creatinine and contraction alkalosis -Continue with ventilatory support -Monitor strict I&Os -Limit sodium intake -Echo 02/27/25: IVC appears to be dilated and also estimated RVSP also appears to be at least moderately elevated at 55 mmHg. 03/14/25: Will hold dirutics for now , he was given IV fluids yesterday. 03/15/25 : Lorain catheter was placed by ICU team which showed PA pressure of more than 30s and wedge pressure was also high . started him on bumex drip . will continue the albumin . he is getting his peg tube today 03/16/25: ICU team tried another Lorain catheter today which showed RA pressure of 25, PA pressure of 38, PCWP of 23. Plan is to continue Bumex for him. Cr stable at 2.5 #Atrial fibrillation, rate controlled Patient notes positive history of afib. He had previously been on metoprolol succinate 100 mg BID. Currently appears rate-controlled in the 100s. CHADS-VASc score 4 Continue Metoprolol ,xarelto held for peg ,Continue with amiodarone 200 mg qday.-Keep potassium >4.0 and mag >2.0 Rest of conditions to continue current management per primary team: #Acute hypoxic respiratory failure s/ p trech #Morbid obesity #Community acquired pneumonia #Elevated LFTs, resolved #Hyperbilirubinemia, resolved #History of type 2 diabetes #Lactic acidosis, resolved #KENIA on CKD Discussed the patient with my attending Shaina Vega MD,PGY-3
[2025-03-16 15:00] LABS: Albumin, Serum 3.2 gm/dL (3.4-4.8); Anion Gap 12 (7-16); BUN/Creatinine Ratio 30 Ratio (12-20); Blood Urea Nitrogen 74 mg/dL (9-23); Calcium 8.7 mg/dL (8.3-10.6); Calcium (Corrected) 9.3 mg/dL (8.5-10.1); Chloride 104 mMol/L (98-107); Creatinine (Component) 2.5 mg/dL (0.6-1.3); Glucose 175 mg/dL (74-106); Osmolality,Calculated 323 (275-295); Phosphorous 3.5 mg/dL (2.4-5.1); Potassium 3.2 mMol/L (3.4-5.1); Sodium 150 mMol/L (136-145); eGFR 28 See Note
--- NOTE | 2025-03-16 18:06 | ESOP_ITS ---
Procedures Procedure Date / Time 03/16/251805 Procedure Narrative Procedure Narrative: Right heart/pulmonary artery catheterization Indication: Hemodynamic monitoring/Intravenous access The patient was placed in a dependent position appropriate for central line placement based on the vein already?cannulated?with a 9F?Cordis?catheter. The patient?s right shoulder was prepped and draped in sterile fashion. A triple lumen continuous cardiac output Raymond-Mary?catheter was brought onto the field and each line flushed with sterile saline and the SVO2 sensor calibrated. The catheter was introduced into the?Cordis?catheter to a distance of 15-17 cm. The balloon was then inflated and the catheter was advanced through the right ventricle and into the pulmonary artery until a wedge position pressure tracing was obtained. The balloon was then deflated and verification of return of a pulmonary artery pressure tracing made. During the floating procedure to position the catheter the position of the catheter tip was determined by continuous pressure monitoring via the distal port. The catheter sheath was unable to be locked to the?Cordis, therefore the balloon was deflated and the catheter was removed entirely. I have reviewed and discussed the patient's care with my attending, Dr. Posey, Jenny Rogers MD PGY-3 Attending Attestation: I was present for the entire procedure. Pulmonary hypertension confirmed with no significant diastolic pressure gradient suggesting pure left heart failure leading to right heart failure. Patient has pulmonary capillary wedge pressure estimated at 20-23. Plan to continue diuresis.
[2025-03-16] MEDS: HEPARIN SOD INJ 5000 UNIT/ML VIAL 7500 UNIT SC (22:17)
[2025-03-16] MEDS: QUEtiapine FUMARATE 25 MG TABLET 50 MG PO (22:47)
[2025-03-17] VITALS (34 sets, daily range): BP systolic 109–178; BP diastolic 79–147; PULSE 79–115; RESP 10–28; TEMP 36.2–37; O2SAT 93–100
[2025-03-17] MEDS: INSULIN LISPRO (AdmeLOG) 1 UNIT/0.01 ML UNIT SC ×3 (01:00→12:00)
[2025-03-17] MEDS: LORazepam 2 MG/ML VIAL 1 MG IVP (01:05)
[2025-03-17 04:51] LABS: Base Excess 13 (-3-3); HCO3 38 mEq/L (20-26); Inspired Oxygen, FIO2 60 %; O2 Saturation 97 % (91-98); PCO2 53 mmHg (32.0-48.0); PO2 87 mmHg (83-108); pH, Arterial 7.47 (7.35-7.45)
[2025-03-17 04:53] LABS: Allen Test Performed/OK; Puncture Site Right Radial
[2025-03-17] MEDS: HEPARIN SOD INJ 5000 UNIT/ML VIAL 7500 UNIT SC ×2 (05:58→13:26)
--- NOTE | 2025-03-17 06:00 | XR_ITS ---
Examination: AP chest single view TECHNIQUE: AP portable supine chest single view Exam date and time: March 17, 2025 at 0620 hours Comparison March 16, 2025 INDICATIONS: Hypoxic respiratory failure postintubation FINDINGS: Mild heart failure Mild enlargement cardiac contour with prominent vascular congestion and basilar edema versus pneumonia Right internal jugular line in proximal SVC Tracheostomy tube tip 5.7 cm above Meggan. Orogastric tube in the stomach satisfactory position IMPRESSION: Mild heart failure Persistent edema and/or pneumonia at the lung bases
[2025-03-17 06:31] LABS: Basophils # (Auto) 0.1 Thou/mm3 (0.0-0.2); Basophils % (Auto) 1 % (0-2.5); Eosinophils # (Auto) 0.3 Thou/mm3 (0.0-0.5); Eosinophils % (Auto) 3 % (0-10); Hematocrit 38.2 % (41.0-53.0); Immature Granulocytes % (Auto) 1 % (0-0); Immature Granulocytes Auto 0.09 Thou/mm3 (0.00-0.00); Lymphocytes # (Auto) 0.9 Thou/mm3 (1.0-4.8); Lymphocytes % (Auto) 9 % (10-50); Mean Corpuscular HGB Conc 31.4 g/dl (31.0-37.0); Mean Corpuscular Hemoglobin 28.6 pg (25.0-35.0); Mean Corpuscular Volume 91 fL (80-100); Monocytes % (Auto) 10 % (0-12); Neutrophils # (Auto) 7.2 Thou/mm3 (1.8-7.7); Neutrophils % (Auto) 76 % (37-80); Nucleated Red Blood Cell % 0 /100 WBC (0); Platelet Count 325 Thou/mm3 (140-440); RDW Standard Deviation 47.3 fL (35.1-43.9); Red Blood Count 4.19 Miln/mm3 (4.50-5.90); White Blood Count 9.4 Thou/mm3 (3.8-10.6)
[2025-03-17 06:54] LABS: Alanine Aminotransferase 22 U/L (10-49); Albumin, Serum 3.3 gm/dL (3.4-4.8); Albumin/Globulin Ratio 1.2 (1.2-2.2); Alkaline Phosphatase 108 U/L (46-116); Anion Gap 11 (7-16); Aspartate Amino Transferase 27 U/L (0-34); BUN/Creatinine Ratio 30 Ratio (12-20); Blood Urea Nitrogen 69 mg/dL (9-23); Calcium 8.9 mg/dL (8.3-10.6); Calcium (Corrected) 9.5 mg/dL (8.5-10.1); Carbon Dioxide 38.3 mMol/L (20.0-31.0); Chloride 102 mMol/L (98-107); Creatinine (Component) 2.3 mg/dL (0.6-1.3); Estimated Creatinine Clearance 54.3 mL/min (>60); Globulin 2.8 gm/dL (2.3-3.5); Glucose 185 mg/dL (74-106); Magnesium 1.7 mg/dL (1.6-2.6); Osmolality,Calculated 324 (275-295); Sodium 151 mMol/L (136-145); Total Protein 6.1 gm/dL (5.7-8.2); eGFR 31 See Note
[2025-03-17 07:05] LABS: Potassium 2.7 mMol/L (3.4-5.1)
[2025-03-17] MEDS: BUMETANIDE INJ 20 MG in CONTAINER,EMPTY 50 ML 1 BAG 4 MG IV (08:13)
[2025-03-17] MEDS: PANTOPRAZOLE INJ 40 MG VIAL IV (08:21)
[2025-03-17] MEDS: POTASSIUM CHL 10 mEq IVPB 10 MEQ/100 ML BAG 100 MEQ IV ×6 (08:25→14:36)
[2025-03-17] MEDS: METOPROLOL TARTRATE 25 MG TABLET 100 MG PO (08:32)
[2025-03-17] MEDS: AMIODARONE HCL 200 MG TABLET PO (08:32)
[2025-03-17] MEDS: CEFEPIME INJ 1 GM in SODIUM CHLORIDE 0.9% (Popper) 50 ML IV ×2 (08:35→21:38)
[2025-03-17] MEDS: Magnesium Sulfate 2 GM Ivpb 2 GM/50 ML BAG IV (08:42)
--- NOTE | 2025-03-17 09:06 | ESPR_ITS ---
Documentation for date of: 03/17/25 Subjective Subjective Interval history: 64-year-old male with past medical history of DM2, hypertension, and A-fib was admitted to the ICU on 02/27/2025 after coming to the ED with complaints of altered mental status and shortness of breath. Patient was intubated in the ED therefore most of the history was taken from chart review and from the parents who are at bedside. Patient's parents stated that yesterday morning patient could not get up from his chair and then later that evening/night he started getting confused and was not making sense when he was seen. This morning EMS found the patient on the floor and he was saturating in the 70s even on high flow nasal cannula. Given his hypoxia patient was intubated in the ED. As per parents were at bedside they stated that prior to this patient was able to walk around, but that since yesterday morning he was unable to walk. On assessment patient was intubated, but was still able to answer yes or no questions. He was also able to follow commands. Patient spiked a fever while in the ED and he became hypotensive unresponsive to IV fluids therefore he was placed on vasopressors. 02/28/2025: Patient was seen examined at bedside this morning. Overnight patient did spike a fever of 100.4 and he had no measurable urine output. Patient placed on amio drip overnigth. He was also given Bumex 1 mg x 1 overnight to see if he had better urine output, but none was measured. Today's patient's chest x-ray this looks like it is improving and he did have wet pants and some urine in the pure wick catheter. Will start patient on Bumex drip at 1 mg and will monitor patient's daily weights. Patient was on very low-dose of Levophed therefore we will start patient on midodrine 10 mg every 6 hours and wean off Levophed entirely. Patient is nasogastric tube was not visualized had x-ray, but on auscultation air was audible in the stomach when hand was placed through the nasogastric tube. Will discontinue patient's vancomycin and Zosyn if his MRSA is negative and will transition to azithromycin and Rocephin. 03/01/2025: Patient seen and examined at bedside this morning. Overnight patient went into A-fib with RVR and he finishes bolus of amiodarone. Patient had a documented urine output of 150, but that she states 1 were very wet. His Bumex drip finished overnight and they were not able to start more Bumex drip as there was not available in the pharmacy overnight. Patient's weight did go down from 249 to 247 kg. Blood cultures have been negative in 48 hours and MRSA nares negative. Will discontinue vancomycin and Zosyn and will start azithromycin and Rocephin. Patient's ventilator requirements have been unchanged, but has been saturating in the 94% therefore we will try and wean down on oxygen requirements. His blood pressure has been stable off Levophed and only on midodrine. His kidney function has been worsening, but expect improvement with more diuresis. Started Amiodarone 200mg qday. 03/02/2025: No overnight events, todays weight 246, we will continue bumex drip. NIF today as -12, we will re-evaluate tomorrow to attempt extubation. Midodrine decreased to 5 q6hr 03/03/2025: Patient was seen examined at bedside this morning. No acute overnight events. Patient was taken off the Precedex yesterday night. Today's weight is 242 kg. Succesfull extubation today, will transition to bipap. 03/06/2025: Was notified by floors team that patient is tachypneic in the 40s with increased work of breathing, confusion, and agitation. He was AAOx 1 (name) and saying leave me alone. He continues to pull at his BIPAP and had to be restrained, with a sitter at bedside. His BIPAP settings were uptitrated from 10/5 to 16/6 without significant improvement of PCO2. Repeat ABG showed pH 7.37 with CO2 at 74. Floor team attempted to notify family with no answer. He remains confused and agitated. Patient to be intubated due to worsening respiratory effort. 03/06/2025: Patient was seen and examined at bedside this morning. He was sedated in the morning, but was weaned off. Patient was able to follow commands he understood and was able to at least answer yes and no questions. Patient was placed on spontaneous breathing trial, but his RSBI was in the 130s therefore patient was high risk to fail extubation at this time. Placed patient back on prior ventilator settings, will follow any sedation at this time as she is calm. Sedation will be placed if patient becomes agitated. Patient is diuresing well and his current weight today is 227 kilograms. Gave metolazone 10 mg x 1 today for additional diuresis and started tube feeds today. Will reattempt weaning parameters tomorrow for possible extubation. 03/07/2025: Patient seen and examined at bedside this morning. No overnight events. Patient's weight today was 226.4 kg. Patient's blood gas that showed a pH of 7.46, PCO2 of 53, and PO2 of 65 this most likely his baseline PCO2. Patient initially did not get his Bumex as it was discontinued the night prior, but today we will continue Bumex 1 mg twice daily. Chest x-ray that showed some more vascular congestion, but still on and physical exam was clear bilaterally. Patient passed spontaneous breathing trial and was extubated successfully today. At this time we will downgrade back to the medical floors. 03/10/2025: Patient was upgraded today at approximately 15:30 for intubation due to declining mentation on the BiPAP, despite remaining on BiPAP for majority of the last 24 hours. Patient was no longer able to answer questions and not following commands. Patient's decision-maker was contacted who consented for intubation. ABG in the morning had shown pH 7.31, pCO2 81, pO2 63, HCO3 41. Will start fentanyl and propofol. Will continue amiodarone PO dose through OG tube. If HR not rate controlled resume metoprolol XL as well. Will continue to hold the Bumex due to worsening KENIA and soft BPs. 03/11/2025: Patient seen and examined at bedside this morning. No acute overnight events. Patient is on sedation, will try and wean down sedation to assess his neurological status at this time. Patient's kidney function continue to worsen with creatinine going up to 2.2, but at this time chest x-ray showed a lot of congestion therefore we will restart Bumex 1 mg twice daily. ABG today shows some respiratory alkalosis with pH of 7.48, pCO2 of 54, and PO2 of 67. Patient has already been upgraded multiple times to the ICU requiring intubation during this hospital stay due to similar symptoms. Patient will most likely benefit from a tracheostomy at this point to overcome the anatomical issues causing him to become hypoxic and hypercapnic, will speak with patient's family and the patient himself once he is weaned off sedation.. Patient had no fevers and his WBCs are downtrending. 03/12/2025: Patient was seen and examined at bedside this morning. Overnight patient was a little bit agitated and biting on the tube therefore he was given a push of Versed. This morning will wean down sedation to possibly assess patient's neurological status and discussed the possibility of needing a tracheostomy with him. Chest x-ray does look a little bit better with less congestion today. GNR were stained in Sputum cultures. Patient's current weight is 220 kg. Will stop diuretics as patient kidney function is continuing to worsen. Will start free water flushes and give him some IV fluids today. Will speak about possible tracheostomy once he wakes up. I ws notified by patient's parent's that the patient is jehova's witness therefore would not want any blood products. 03/13/2025: Patient was seen and examined at bedside this morning. No acute overnight events. Patient's kidney function continues to worsen as his creatinine is 2.5 today, will give 1 L of IV fluids and will continue with free water flushes for now. Holding diuresis at this time. Patient did grow Enterobacter Cloacoe in the sputum which was sensitive to cefepime therefore we will continue with cefepime for now. Patient potassium was also low therefore gave 40 mEq x 1. Surgery plans for tracheostomy or Tuesday therefore holding Xarelto for now. Turned off all sedation and will reassess neurological status in the evening. 03/14/2025: No overnight events reported. Total urine output overnight 300 cc. No pyrexia reported. Precedex stopped at 7:35 AM. Scheduled trach at 12 PM. Patient examined at bedside. Patient continues to be mechanically ventilated on a PEEP of 8, FiO2 of 50 and tidal volume 420 thus nonverbal. Patient noted to have lower pedal edema. Patient's acute kidney injury unchanged from previous labs creatinine 2.5 and GFR of 28. Hypernatremia hyperosmolar. Morning ABG showing metabolic alkalosis with improved pCO2 of 50 and bicarb of 36. Patient is currently n.p.o. and scheduled for trach at 12 PM today. Restart heparin 6 hours after procedure. 03/15/2025: No overnight events. Afebrile overnight. Minimal urine output of 200 cc. Patient continues to remain off precedex. Tracheostomy, mechanically ventilated VT 420, PEEP 8, and flow 40/FiO2 of 60. Patient is alert and cooperative. Atrial fibrillation still present, on Amiodarone and Metoprolol Tartrate. Bumex drip 1 mg/hr plus daily albumin. Nephrology consulted given poor kidney function, renal us, urinalysis, uric acid, and albumin-Cr ration, and total urine. Patient scheduled for PEG tube tomorrow, please discontinue heparin drip tomorrow morning. 03/16/2025: Patient agitated overnight and was given lorazepam and olanzapine. He had UOP 1600 overnight. Swanz catheter was floated this morning: RAP 25 PAP 38 PCWP 23, all high pressures. PAWO2 obtained was 67%. Using Kenneth's formula, the cardiac output is 8.3 L/min, caridac index 2.7, and stroke volume 83. Given his high cardiac output and elevated RA pressures, will start bumex ggt. The patient is also hypernatremic at 150 with a free water deficit of 4L for a goal Na of 145. We will start free water flushes at 250cc/hr. Plan for PEG tube placement this afternoon. 03/18/2025: Overnight patient was agitated, Ativan and Quetiapine given x1. Urine output 4400 and negative net balance 3301. Weight 204. Patient continues to be mechanically ventilated on a PEEP of 8, VT 420 and FiO2 of 60. NG tube in the right nostral. Potassium repleted and following potassium. CVP 9 (=17-8). Bumex drip-stopped----> to Bumex 2 mg twice daily started. Plan for J-tube in tomorrow and PICC line. D/C central line. NPO after midnight. PT/PTT AM draws. Hold heparin after midnight.Feed tubes restarted. Exam Vital Signs Temp Pulse Resp BP Pulse Ox O2 Del Method O2 Flow Rate 97.8 F 83 22 H 130/83 98 Mechanical Ventilation 5 03/17/25 00:00 03/17/25 08:32 03/14/25 15:01 03/17/25 08:32 03/17/25 08:26 03/15/25 16:00 03/10/25 11:46 FiO2 60 03/17/25 08:26 Narrative Exam General Appearance: Alert & Oriented X0, obese male who is lying in bed in no acute distress, mechanically ventilated with tracheostomy. HEENT: Skull symmetrical and atraumatic. Conjunctivae pale pink and moist. Pupils equal, round, reactive to light and accommodation (PERRL). External ear without lesion or discharge. Cardio: Normal Rate and Rhythm with S1 and S2 heart sounds. No murmurs or extra heart sounds auscultated. No bruits on carotid auscultation. Lower pedal edema. Lungs: Symmetric expansion. Breath sounds vesicular but with upper airway sounds from ventilation. No crackles, wheezing or rhonchi Abdomen: Non-tender, Non-distended, Normal Reactive Bowel Sounds Neuro: No Alert, YES cooperative, No oriented to person, No place, and NO time. Non verbal, secondary to tracheostomy. Unable to access motor strength as patient is not following commands. Objective Labs 03/18/25 05:30 03/18/25 05:30 Labs: Laboratory Results - last 24 hr 03/16/25 03/16/25 03/17/25 09:53 14:28 04:35 WBC RBC Hgb Hct MCV MCH MCHC RDW Std Deviation Plt Count Neut % (Auto) Lymph % (Auto) [place] % (Auto) Eos % (Auto) Baso % (Auto) Neut # (Auto) Lymph # (Auto) [place] # (Auto) Eos # (Auto) Baso # (Auto) Immature Gran # (Auto) Absolute Nucleated RBC Immature Gran % Nucleated RBC % Puncture Site Arterial Line Right Radial ABG pH 7.48 H 7.47 H ABG pCO2 49 H 53 H ABG pO2 34 L* D 87 D ABG HCO3 37 H 38 H ABG O2 Saturation 67 L 97 ABG Base Excess 12 H 13 H FiO2 60 60 Sodium 150 H Potassium 3.2 L Chloride 104 Carbon Dioxide 34.0 H Anion Gap 12 BUN 74 H Creatinine 2.5 H Estim Creat Clear Calc 50.0 L eGFR 28 L BUN/Creatinine Ratio 30 H Glucose 175 H Calculated Osmolality 323 H Calcium 8.7 Corrected Calcium 9.3 Phosphorus 3.5 Magnesium Total Bilirubin AST ALT Alkaline Phosphatase Total Protein Albumin 3.2 L Globulin Albumin/Globulin Ratio 03/17/25 05:47 WBC 9.4 RBC 4.19 L Hgb 12.0 L Hct 38.2 L MCV 91 MCH 28.6 MCHC 31.4 RDW Std Deviation 47.3 H Plt Count 325 Neut % (Auto) 76 Lymph % (Auto) 9 L [place] % (Auto) 10 Eos % (Auto) 3 Baso % (Auto) 1 Neut # (Auto) 7.2 Lymph # (Auto) 0.9 L [place] # (Auto) 1.0 H Eos # (Auto) 0.3 Baso # (Auto) 0.1 Immature Gran # (Auto) 0.09 H Absolute Nucleated RBC 0.00 Immature Gran % 1 H Nucleated RBC % 0 Puncture Site ABG pH ABG pCO2 ABG pO2 ABG HCO3 ABG O2 Saturation ABG Base Excess FiO2 Sodium 151 H Potassium 2.7 L* D Chloride 102 Carbon Dioxide 38.3 H Anion Gap 11 BUN 69 H Creatinine 2.3 H Estim Creat Clear Calc 54.3 L eGFR 31 L BUN/Creatinine Ratio 30 H Glucose 185 H Calculated Osmolality 324 H Calcium 8.9 Corrected Calcium 9.5 Phosphorus 3.0 Magnesium 1.7 Total Bilirubin 1.0 AST 27 ALT 22 Alkaline Phosphatase 108 Total Protein 6.1 Albumin 3.3 L Globulin 2.8 Albumin/Globulin Ratio 1.2 ABG Interpretation ABG results: 02/27/25 02/28/25 03/01/25 06:55 04:57 04:39 ABG pH 7.27 L 7.37 D 7.41 ABG pCO2 57 H 48 44 ABG pO2 101 78 L D 69 L ABG HCO3 26 28 H 28 H ABG O2 Saturation 98 95 93 ABG Base Excess -2 2 3 VBG pH VBG pCO2 VBG pO2 VBG Base Excess 03/01/25 03/01/25 03/02/25 13:15 14:52 04:25 ABG pH Cancelled 7.41 7.45 ABG pCO2 Cancelled 45 42 ABG pO2 Cancelled 53 L* 66 L ABG HCO3 Cancelled 28 H 29 H ABG O2 Saturation Cancelled 85 L 92 ABG Base Excess Cancelled 3 5 H VBG pH VBG pCO2 VBG pO2 VBG Base Excess 03/03/25 03/05/25 03/05/25 04:40 16:30 16:55 ABG pH 7.45 Cancelled 7.34 L D ABG pCO2 43 Cancelled 72 H* D ABG pO2 72 L Cancelled 83 ABG HCO3 30 H Cancelled 38 H ABG O2 Saturation 94 Cancelled 95 ABG Base Excess 5 H Cancelled 9 H VBG pH VBG pCO2 VBG pO2 VBG Base Excess 03/05/25 03/06/25 03/06/25 23:36 01:48 05:22 ABG pH 7.37 7.34 L 7.52 H D ABG pCO2 67 H 74 H* 47 D ABG pO2 150 H D 88 D 160 H D ABG HCO3 38 H 40 H 38 H ABG O2 Saturation 99 H 96 100 H ABG Base Excess 10 H 11 H 13 H VBG pH VBG pCO2 VBG pO2 VBG Base Excess 03/06/25 03/07/25 03/07/25 17:10 05:00 14:03 ABG pH 7.46 H ABG pCO2 53 H ABG pO2 65 L D ABG HCO3 38 H ABG O2 Saturation 93 ABG Base Excess 12 H VBG pH 7.50 7.52 VBG pCO2 50 47 VBG pO2 70 H 61 H VBG Base Excess 13 H 14 H 03/09/25 03/09/25 03/09/25 08:17 10:25 17:29 ABG pH 7.25 L D 7.29 L 7.29 L ABG pCO2 93 H* D 85 H* 88 H* ABG pO2 81 L 57 L* D 85 D ABG HCO3 41 H 40 H 43 H ABG O2 Saturation 95 89 L 97 ABG Base Excess 10 H 10 H 12 H VBG pH VBG pCO2 VBG pO2 VBG Base Excess 03/09/25 03/10/25 03/10/25 23:24 07:17 11:25 ABG pH 7.32 L 7.28 L 7.31 L ABG pCO2 78 H* D 90 H* D 81 H* ABG pO2 69 L 47 L* D 63 L ABG HCO3 40 H 43 H 41 H ABG O2 Saturation 94 80 L 93 ABG Base Excess 11 H 12 H 11 H VBG pH VBG pCO2 VBG pO2 VBG Base Excess 03/10/25 03/11/25 03/12/25 16:56 04:19 04:42 ABG pH 7.40 7.48 H 7.43 ABG pCO2 66 H D 54 H D 59 H ABG pO2 68 L 67 L 77 L ABG HCO3 41 H 40 H 39 H ABG O2 Saturation 94 94 96 ABG Base Excess 13 H 15 H 12 H VBG pH VBG pCO2 VBG pO2 VBG Base Excess 03/13/25 03/14/25 03/15/25 04:32 04:25 04:37 ABG pH 7.47 H 7.46 H 7.41 ABG pCO2 53 H 50 H 56 H ABG pO2 60 L 70 L 69 L ABG HCO3 38 H 36 H 35 H ABG O2 Saturation 93 95 95 ABG Base Excess 13 H 10 H 9 H VBG pH VBG pCO2 VBG pO2 VBG Base Excess 03/16/25 03/16/25 03/17/25 04:54 09:53 04:35 ABG pH 7.45 7.48 H 7.47 H ABG pCO2 51 H 49 H 53 H ABG pO2 68 L 34 L* D 87 D ABG HCO3 35 H 37 H 38 H ABG O2 Saturation 95 67 L 97 ABG Base Excess 10 H 12 H 13 H VBG pH VBG pCO2 VBG pO2 VBG Base Excess Quality Measures Quality Measures sepsis Current suspected stage: ruled out Possible source: pulmonary Blood cultures ordered: completed in ED Antibiotic ordered: Yes Advance care planning discussed with:: patient Assessment & Plan Assessment Current Active Medications: Generic Name Dose Route Start Last Admin Trade Name Freq PRN Reason Stop Dose Admin Acetaminophen 650 mg 03/10/25 19:17 Acetaminophen 325 Mg Tablet PO 03/29/25 09:23 Q4HR PRN fever > 100.4 Al Hydrox/Mg Hydrox/Simethicone 30 ml 02/27/25 09:24 Mg Hyd/Al Hyd/Virgilio (Maalox Reg) Susp 30 Ml Udc PO 03/29/25 09:23 Q4HR PRN Heartburn or Upset Stomach Amiodarone HCl 200 mg 03/01/25 09:00 03/17/25 08:32 Amiodarone Hcl 200 Mg Tablet PO 03/31/25 08:59 200 mg QDAY KOURTNEY Administration Dextrose 25 ml 03/03/25 08:20 Dextrose 50%-Water Inj 50 Ml Syringe IV 04/02/25 08:19 Q15MIN PRN BG 50-70 responsive npo pt Dextrose 50 ml 03/03/25 08:20 Dextrose 50%-Water Inj 50 Ml Syringe IV 04/02/25 08:19 Q15MIN PRN BG <50 OR BG <70 & pt unresponsive Glucagon 1 mg 03/03/25 08:20 Glucagon Inj 1 Mg Vial IM Q15MIN PRN BG <70, and no IV access Heparin Sodium (Porcine) 7,500 unit 03/15/25 02:00 03/17/25 05:58 Heparin Sod Inj 5000 Unit/Ml Vial SC 03/29/25 01:59 7,500 unit Q8HR KOURTNEY Administration Cefepime HCl 1 gm/ Sodium 50 mls @ 100 mls/hr 03/11/25 21:00 03/17/25 08:35 Chloride IV 03/18/25 20:59 100 mls/hr Q12HR KOURTNEY Administration Albumin Human 25 gm in 100 mls @ 100 mls/hr 03/16/25 09:00 03/16/25 08:42 Albuminar-25 Ivpb IV 03/19/25 08:59 100 mls/hr QDAY KOURTNEY Administration Potassium Chloride 10 meq in 100 mls @ 100 mls/hr 03/17/25 07:10 03/17/25 08:25 Kcl Ivpb IV 03/17/25 11:09 100 mls/hr Q1H KOURTNEY Administration Bumetanide 20 mg/ IV 80 mls @ 4 mls/hr 03/17/25 07:11 03/17/25 08:13 Miscellaneous Supplies IV 03/18/25 03:10 1 mg/hr .Q20H KOURTNEY 4 mls/hr Administration 1 MG/HR Magnesium Sulfate 2 gm in 50 mls @ 25 mls/hr 03/17/25 07:14 03/17/25 08:42 Magnesium Sulfate Ivpb IV 03/17/25 09:13 25 mls/hr X1 ONE Administration Potassium Chloride 10 meq in 100 mls @ 100 mls/hr 03/17/25 12:00 Kcl Ivpb IV 03/17/25 13:59 Q1H KOURTNEY Insulin Human Lispro 0 unit 03/06/25 06:00 03/17/25 05:56 Insulin Lispro (Admelog) 1 Unit/0.01 Ml Unit SC 04/05/25 05:59 1 unit Q6H KOURTNEY Administration Protocol Magnesium Hydroxide 30 ml 02/27/25 09:24 Milk Of Magnesia Susp 30 Ml Udc PO 03/29/25 09:23 QDAY PRN CONSTIPATION Metoprolol Tartrate 100 mg 03/14/25 21:00 03/17/25 08:32 Metoprolol Tartrate 25 Mg Tablet PO 04/13/25 20:59 100 mg BID KOURTNEY Administration Ondansetron HCl 4 mg 03/05/25 20:46 03/09/25 03:49 Ondansetron Inj 2 Mg/Ml Inj 2 Ml IV 04/04/25 20:45 4 mg Q6HR PRN Administration NAUSEA OR VOMITING Protocol Pantoprazole Sodium 40 mg 02/27/25 11:15 03/17/25 08:21 Pantoprazole Inj 40 Mg Vial IV 03/29/25 11:14 40 mg QDAY KOURTNEY Administration Rivaroxaban 20 mg 03/04/25 17:30 03/12/25 13:27 Rivaroxaban 10 Mg Tablet PO 04/03/25 17:29 Not Given WSUPPER KOURTNEY Plan 64-year-old male with past medical history of DM2, hypertension, A-fib, and Jehova's witness was admitted to the ICU on 02/27/2025 for shock and acute hypoxic respiratory failure. 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 CVS: #Right diastolic CHF Echo could not visualize all chambers with limited ability to determine patient's ejection fraction. Given body habitus, history of obstructive sleep apnea and obesity hypoventilation syndrome, right heart failure suspected. Lower pedal edema likely combination of heart failure and third spacing. Swanz Mary 03/15 showed elevated RAP 25 PAP 38 PCWP 23. [place] Mary 03/16/2025 PCWP 9 (=17-8) High cardiac output - Bumex ggt - Albumin - Daily weights - Strict I&O #Hx of A-fib [id number] score of 3 points indicating 3.2% risk of stroke per year Has bled score of 0 - Continue PO amiodarone 200 mg qday - Continue metoprolol Tartrate 100 mg BID - Holding xarelto due to upcoming procedure, Heparin on board. Please hold heparin aftermidnight for PICC line on 03/18/2025. Respiratory: #Acute on chronic hypoxic and hypercapnic respiratory failure #Obesity hypoventilation syndrome and obstructive sleep apnea #Community-acquired pneumonia, Enterobacter Cloacoe Patient was intubated on 02/27/2025, extubated 03/03/2025. Reintubated on 03/06/2025 and extubated 03/07/2025. Reintubated 03/10/2025 for hypercapnic encephalopathy Tracheostomy tube placed 03/15 - Continue vent, wean as tolerated - Antibiotics, see ID section below Renal: #KENIA Pre-renal from cardiorenal and edema in the setting of third spacing, low albumin. Bumex drip stopped. - Diuresis, Bumex 2 mg BID - Albumin - Nephrology following #Hypernatremia, Hyper-osmolar Free water deficit 4.2 L for goal Na 145 - Free water flushes 250cc every 6 hours #Metabolic Alkalosis Metabolic Alkalosis with ABG of 7.47 in the setting of contraction alkalosis from diuretics and likely underlying compensation for OHA as ideal bicarb would be 28. Considered Acetazolamide AM. Plan Bumex drip to 2 mg BID. #Electrolytes Abnormalities potassium repeated likely secondary to Bumex drip. Renal Function follow up. 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 NG tube feedings restarted. -plan for Jtube placement by IR tomorrow -PT/PTT panel AM -NPO aftermidnight Endo: #Morbid obesity Patient has a BMI of 79.5 #DM2 A1C 7.6 on 03/05/2025 - ISS - Hypoglycemia protocol ordered Heme: #Leukocytosis, improving ID: #Enterobacter cloacoe pneumonia Finished Rocephin (03/06/2025) - Continue cefepime 03/18/2025 Hospital Maintenance: Diet: Resume NG tube feeding, NPO after midnight. DVT ppx: heparin, hold heparin after midnight for PICC line tomorrow. GI ppx: protonix IV lines: PIV, Central line removed-->plan for PICC line on Tuesday Fuller: none Code status: Full code Dispo: ICU for acute on chronic hypoxic and hypercapnic respiratory failure. - The patient's plan was discussed with attending Dr. Kalpesh Esquivel MD PGY1 Internal Medicine Attending Provider Attestation/Addendum Patient seen and examined with above resident, Mery Esquivel MD. I agree with the findings, assessment, and plan of care as documented except for any differences below. Patient with significant improvement from a volume status perspective. Urine output continues to be good with slight improvement in GFR. 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 We did perform CVP again this afternoon showing that the CVP has not decreased to the mid to high teens. Will continue on Bumex as per recommendations from nephrology. Monitor serum sodium as well as other electrolytes. Aggressive replacement of potassium required prior to reinitiation of diuretics. Diamox may be warranted as the patient is starting to develop contraction alkalosis from loop diuretic use. Patient remains stable on mechanical ventilation with tolerance of periods of pressure support 08/21. Will continue to aggressively wean as fluid status improves as afterload reduction with removal of positive pressure ventilation will also meaningfully help in the setting of the patient's biventricular failure with apical portion of right heart disease likely in the setting of obesity hypoventilation syndrome/BASIA. Patient's trach continues to heal well but we will remove sutures at the 1 week jesus as it is routinely done. Will not plan for repeat right heart catheterization for the coming days unless clinically shows significant improvement for which we need to delineate LVEDP to direct ongoing fluid optimization. Patient's parents were updated at bedside. Patient continues to slowly improve in the right trajectory. Notably, today he was sleepier that this is likely in the setting of sedation with medications overnight. Total critical care time: I personally spent 40 minutes for review of physiologic parameters, directing plan of care throughout the day, coordination of care with other subspecialists, and counseling patient's family at bedside. This is exclusive of time spent teaching housestaff or performing any separate billable procedures. Patient remains at high risk for further morbidity and mortality warranting close monitoring and care only available in the intensive care unit. Patient requiring critical care services for acute on chronic right heart failure and acute hypoxic respiratory failure.
[2025-03-17] MEDS: ALBUMIN HUMAN 25% IVPB 25 GM/100 ML BTL IV (09:32)
[2025-03-17] MEDS: POTASSIUM CHLORIDE 20 mEq TABCR 40 MEQ PO (10:55)
--- NOTE | 2025-03-17 12:11 | PD.NEPHPROG ---
Documentation for date of: 03/17/25 Subjective Subjective Interval history: Mr. Ortega is a 64-year-old male with past medical history of DM2, hypertension, and A-fib Morbid obesity by BMIwas admitted to the ICU on 02/27/2025 after coming to the ED with complaints of altered mental status and shortness of breath. Patient was intubated in the ED therefore most of the history was taken from chart review and from the parents who are at bedside. EMS found the patient on the floor and he was saturating in the 70s even on high flow nasal cannula. Given his hypoxia patient was intubated in the ED. Patient spiked a fever while in the ED and he became hypotensive unresponsive to IV fluids therefore he was placed on vasopressors. During course of hospitalization patient had decreasing kidney function, patient notably edematous and has vascular congestion on x-ray, therefore was treated with Bumex. Despite diuresis therapy, patient kidney function continued to worsen, diuresis positive patient given free water flushes. Patient has had notably low albumin, ICU team recently started patient on albumin but not at the same time as diuretics. Nephrology was consulted due to worsening kidney function. Tracheostomy placed yesterday. Labs today show WBC 12.5, hemoglobin 12.1, platelets 346. Sodium 149, potassium 3.6, chloride 104, bicarb 33.5. BUN 76, creatinine 2.7, EGFR 25. Hemoglobin A1c 7.6%. 03/16/2025: Patient seen and examined at bedside. Patient had 0.5 L in, 1.8 L urinary output, length of stay net -1.6 L. UA showed trace protein and blood, 2+ bacteria, 3+ uric acid crystals, 99 total protein, 104 creatinine. Catheter showed elevated wedge pressure suspect right heart failure due to chronic pulmonary hypertension related to patient's weight. Sodium increased to 150, free water deficits 4.5 L. Bicarb 34.7, BUN 73, creatinine 2.5, EGFR 28. However improved to 3.3, uric acid 9.0. Renal ultrasound was taken, however was unable to visualize kidneys. Will continue to diurese patient and provide albumin, possibly will need dialysis starting Tuesday if does not improve. 03/17/2025 patient currently seen in ICU. Remains on the ventilator. Patient still with significant anasarca. Blood sugar 143. Blood pressure 127/92, heart rate 85. Hemoglobin 12. Sodium 152, potassium 3.8, bicarbonate 39.7, BUN 70, creatinine 2.3, blood sugar 172, calcium 9.4, phosphorus 3.2, magnesium 1.7, LFTs normal, BNP 389, albumin 3.2, chest x-ray showed significant edema Review of Systems Review of Systems ROS Unobtainable: unobtainable due to medical condition and due to endotracheal tube Exam Vital Signs Temp Pulse Resp BP Pulse Ox O2 Del Method O2 Flow Rate 37.0 C 79 22 H 112/83 97 Mechanical Ventilation 5 03/17/25 08:00 03/17/25 10:46 03/14/25 15:01 03/17/25 10:46 03/17/25 10:46 03/15/25 16:00 03/10/25 11:46 FiO2 60 03/17/25 10:46 Narrative Exam GENERAL APPEARANCE: Morbidly obese gentleman currently seen in ICU. Status post trach and is on ventilator NECK: Neck supple, no JVD or bruit CARDIOVASCULAR: Heart regular, no murmurs LUNGS/CHEST: distant breath sounds ABDOMEN: Pendulous abdomen. EXTREMITIES: Anasarca noted MUSCULOSKELETAL: In bed NEUROLOGICAL : Intubated, sedated Objective Labs 03/17/25 05:47 03/18/25 00:35 Labs: Laboratory Results - last 24 hr 03/16/25 03/17/25 03/17/25 14:28 04:35 05:47 WBC 9.4 RBC 4.19 L Hgb 12.0 L Hct 38.2 L MCV 91 MCH 28.6 MCHC 31.4 RDW Std Deviation 47.3 H Plt Count 325 Neut % (Auto) 76 Lymph % (Auto) 9 L [place] % (Auto) 10 Eos % (Auto) 3 Baso % (Auto) 1 Neut # (Auto) 7.2 Lymph # (Auto) 0.9 L [place] # (Auto) 1.0 H Eos # (Auto) 0.3 Baso # (Auto) 0.1 Immature Gran # (Auto) 0.09 H Absolute Nucleated RBC 0.00 Immature Gran % 1 H Nucleated RBC % 0 Puncture Site Right Radial ABG pH 7.47 H ABG pCO2 53 H ABG pO2 87 D ABG HCO3 38 H ABG O2 Saturation 97 ABG Base Excess 13 H FiO2 60 Sodium 150 H 151 H Potassium 3.2 L 2.7 L* D Chloride 104 102 Carbon Dioxide 34.0 H 38.3 H Anion Gap 12 11 BUN 74 H 69 H Creatinine 2.5 H 2.3 H Estim Creat Clear Calc 50.0 L 54.3 L eGFR 28 L 31 L BUN/Creatinine Ratio 30 H 30 H Glucose 175 H 185 H Calculated Osmolality 323 H 324 H Calcium 8.7 8.9 Corrected Calcium 9.3 9.5 Phosphorus 3.5 3.0 Magnesium 1.7 Total Bilirubin 1.0 AST 27 ALT 22 Alkaline Phosphatase 108 Total Protein 6.1 Albumin 3.2 L 3.3 L Globulin 2.8 Albumin/Globulin Ratio 1.2 ABG Interpretation ABG results: 02/27/25 02/28/25 03/01/25 06:55 04:57 04:39 ABG pH 7.27 L 7.37 D 7.41 ABG pCO2 57 H 48 44 ABG pO2 101 78 L D 69 L ABG HCO3 26 28 H 28 H ABG O2 Saturation 98 95 93 ABG Base Excess -2 2 3 VBG pH VBG pCO2 VBG pO2 VBG Base Excess 03/01/25 03/01/25 03/02/25 13:15 14:52 04:25 ABG pH Cancelled 7.41 7.45 ABG pCO2 Cancelled 45 42 ABG pO2 Cancelled 53 L* 66 L ABG HCO3 Cancelled 28 H 29 H ABG O2 Saturation Cancelled 85 L 92 ABG Base Excess Cancelled 3 5 H VBG pH VBG pCO2 VBG pO2 VBG Base Excess 03/03/25 03/05/25 03/05/25 04:40 16:30 16:55 ABG pH 7.45 Cancelled 7.34 L D ABG pCO2 43 Cancelled 72 H* D ABG pO2 72 L Cancelled 83 ABG HCO3 30 H Cancelled 38 H ABG O2 Saturation 94 Cancelled 95 ABG Base Excess 5 H Cancelled 9 H VBG pH VBG pCO2 VBG pO2 VBG Base Excess 03/05/25 03/06/25 03/06/25 23:36 01:48 05:22 ABG pH 7.37 7.34 L 7.52 H D ABG pCO2 67 H 74 H* 47 D ABG pO2 150 H D 88 D 160 H D ABG HCO3 38 H 40 H 38 H ABG O2 Saturation 99 H 96 100 H ABG Base Excess 10 H 11 H 13 H VBG pH VBG pCO2 VBG pO2 VBG Base Excess 03/06/25 03/07/25 03/07/25 17:10 05:00 14:03 ABG pH 7.46 H ABG pCO2 53 H ABG pO2 65 L D ABG HCO3 38 H ABG O2 Saturation 93 ABG Base Excess 12 H VBG pH 7.50 7.52 VBG pCO2 50 47 VBG pO2 70 H 61 H VBG Base Excess 13 H 14 H 03/09/25 03/09/25 03/09/25 08:17 10:25 17:29 ABG pH 7.25 L D 7.29 L 7.29 L ABG pCO2 93 H* D 85 H* 88 H* ABG pO2 81 L 57 L* D 85 D ABG HCO3 41 H 40 H 43 H ABG O2 Saturation 95 89 L 97 ABG Base Excess 10 H 10 H 12 H VBG pH VBG pCO2 VBG pO2 VBG Base Excess 03/09/25 03/10/25 03/10/25 23:24 07:17 11:25 ABG pH 7.32 L 7.28 L 7.31 L ABG pCO2 78 H* D 90 H* D 81 H* ABG pO2 69 L 47 L* D 63 L ABG HCO3 40 H 43 H 41 H ABG O2 Saturation 94 80 L 93 ABG Base Excess 11 H 12 H 11 H VBG pH VBG pCO2 VBG pO2 VBG Base Excess 03/10/25 03/11/25 03/12/25 16:56 04:19 04:42 ABG pH 7.40 7.48 H 7.43 ABG pCO2 66 H D 54 H D 59 H ABG pO2 68 L 67 L 77 L ABG HCO3 41 H 40 H 39 H ABG O2 Saturation 94 94 96 ABG Base Excess 13 H 15 H 12 H VBG pH VBG pCO2 VBG pO2 VBG Base Excess 03/13/25 03/14/25 03/15/25 04:32 04:25 04:37 ABG pH 7.47 H 7.46 H 7.41 ABG pCO2 53 H 50 H 56 H ABG pO2 60 L 70 L 69 L ABG HCO3 38 H 36 H 35 H ABG O2 Saturation 93 95 95 ABG Base Excess 13 H 10 H 9 H VBG pH VBG pCO2 VBG pO2 VBG Base Excess 03/16/25 03/16/25 03/17/25 04:54 09:53 04:35 ABG pH 7.45 7.48 H 7.47 H ABG pCO2 51 H 49 H 53 H ABG pO2 68 L 34 L* D 87 D ABG HCO3 35 H 37 H 38 H ABG O2 Saturation 95 67 L 97 ABG Base Excess 10 H 12 H 13 H VBG pH VBG pCO2 VBG pO2 VBG Base Excess Assessment & Plan Assessment and plan (1) Respiratory failure: Status: Acute Additional Assessment & Plan Additional Plan: 64-year-old male with past medical history of DM2, hypertension, and A-fib was admitted to the ICU on 02/27/2025 for acute hypoxic respiratory failure and altered mental status requiring intubation. Nephrology consulted for acute renal failure with worsening kidney function. #KENIA #Metabolic alkalosis #Hypernatremia, Hyper-osmolar Patient has no history of chronic kidney disease. Patient developed KENIA with worsening renal function during hospitalization. Initially suspected of cardiorenal syndrome, was treated with IV Bumex. Despite diuretic therapy patient kidney function continued to worsen. Suspect currently in ATN. Bumex was held, patient started on free water flushes. Patient continued to have worsening kidney function. Patient started on albumin today. Patient appears intravascularly depleted and intravascularly fluid overloaded. Ultrasound taken, unable to visualize kidneys. Urinalysis done showing trace blood, trace protein, 3+ uric acid crystals, 2+ bacteria. Urine total protein 99, urine creatinine 104. Nephrotic proteinuria ruled out, suspect KENIA related to right heart failure in the setting of elevated cardiac wedge pressure. -Avoid nephrotoxic agent -Renally dose medication -Monitor daily labs -Continue free water flushes with goal of slow correction of free water deficit 4.5 L -Recommend albumin with Bumex drip for Significant anasarca In the setting of hypoalbuminemia #Acute encephalopathy #Right diastolic CHF #Hx of A-fib #Acute on chronic hypoxic and hypercapnic respiratory failure #Obesity hypoventilation syndrome and obstructive sleep apnea #Community-acquired pneumonia, Enterobacter Clo[place]oe #Morbid obesity #DM2 #Community-acquired pneumonia, Enterobacter cloacoe Management as per primary team
[2025-03-17 12:44] LABS: Albumin, Serum 3.2 gm/dL (3.4-4.8); Anion Gap 10 (7-16); BUN/Creatinine Ratio 30 Ratio (12-20); Blood Urea Nitrogen 70 mg/dL (9-23); Calcium 8.8 mg/dL (8.3-10.6); Calcium (Corrected) 9.4 mg/dL (8.5-10.1); Carbon Dioxide 39.7 mMol/L (20.0-31.0); Chloride 102 mMol/L (98-107); Creatinine (Component) 2.3 mg/dL (0.6-1.3); Estimated Creatinine Clearance 54.3 mL/min (>60); Glucose 172 mg/dL (74-106); Osmolality,Calculated 326 (275-295); Phosphorous 3.2 mg/dL (2.4-5.1); Potassium 3.1 mMol/L (3.4-5.1); Sodium 152 mMol/L (136-145); eGFR 31 See Note
--- NOTE | 2025-03-17 13:44 | XR_ITS ---
Examination: AP chest single view Technique: AP portable supine chest single view Exam date and time: March 17, 2025 1357 hrs. Comparison the 2024 0620 hrs. Post orogastric tube placement Findings: The orogastric tube is in the stomach, the tip is below the level of the film Again noted enlarged cardiac contour with prominent vascular congestion and bibasilar lung opacity Tracheal tube tip 5.4 cm above nunu Right internal jugular line proximal SVC Impression: Orogastric tube in the stomach satisfactory position Mild heart failure Bibasilar edema and/or pneumonia
[2025-03-17 14:54] LABS: B-Type Natriuretic Peptide 389 pg/mL (0-100)
[2025-03-17 16:24] LABS: Potassium 3.8 mMol/L (3.4-5.1)
--- NOTE | 2025-03-17 16:51 | ESPR_ITS ---
<Statement entered by Lenora John MD - 03/17/25 17:55> I have personally examined evaluate the patient educated with the PGY 2 Dr. Isaac patient's still unstable has had electrolyte imbalance metabolic alkalosis and hypokalemia from aggressive diuresis The patient continues to excessive edema generalized anasarca with hypoalbuminemia received albumin as well Strawn-Mary catheter was removed but continues to have elevated right heart pressures as well as left ventricle end- diastolic pressure and wedge pressures and continue diuretic therapy after electrical imbalances corrected Diamox could be tried discussed with construction safety consultant as well we will continue to monitor cardiac status A-fib rate controlled well for now evaluated patient all the essential components of progress note reviewed agree with the treatment plan recommendation as documented by Dr. Isaac PGY 2 Documentation for date of: 03/17/25 Subjective Subjective Interval history: Patient was seen and examined at bedside. Overnight patient was agitated and was given olanzapine. PEG tube insertion failed yesterday. He is net fluid balance -3350 today. Labs showed potassium 2.7 and bicarb 38.3, ICU team held Bumex drip and began potassium replenishment, will resume Bumex drip once electrolytes are corrected. He is not on pressors or sedation. Continue current management and monitor patient. Exam Vital Signs Temp Pulse Resp BP Pulse Ox O2 Del Method O2 Flow Rate 97.1 F 94 22 H 121/87 H 99 Mechanical Ventilation 5 03/17/25 16:00 03/17/25 16:00 03/14/25 15:01 03/17/25 16:00 03/17/25 16:00 03/15/25 16:00 03/10/25 11:46 FiO2 60 03/17/25 16:00 Narrative Exam Gen: Well-developed and well-nourished morbidly obese male. HEENT: NCAT, PERRLA, EOMI, MMM, anicteric conjunctivae, tracheostomy in place. CVS: Decreased heart sounds, normal S1 and S2. RRR. No M/R/G. Resp: Decreased breath sounds B/L. No rhonchi, rales, crackles or wheezing. Abd: soft, morbidly obese, non-tender, non-distended. BS+ in all 4 quadrants. Pitting edema over bilateral flanks and sides. MSK: Good ROM in BUE & BLE. 3+ pitting edema BLE. Neuro: Limited exam due to medical condition. Objective Labs 03/17/25 05:47 03/17/25 15:48 Labs: Laboratory Results - last 24 hr 03/17/25 03/17/25 03/17/25 04:35 05:47 11:58 WBC 9.4 RBC 4.19 L Hgb 12.0 L Hct 38.2 L MCV 91 MCH 28.6 MCHC 31.4 RDW Std Deviation 47.3 H Plt Count 325 Neut % (Auto) 76 Lymph % (Auto) 9 L Williams % (Auto) 10 Eos % (Auto) 3 Baso % (Auto) 1 Neut # (Auto) 7.2 Lymph # (Auto) 0.9 L Williams # (Auto) 1.0 H Eos # (Auto) 0.3 Baso # (Auto) 0.1 Immature Gran # (Auto) 0.09 H Absolute Nucleated RBC 0.00 Immature Gran % 1 H Nucleated RBC % 0 Puncture Site Right Radial ABG pH 7.47 H ABG pCO2 53 H ABG pO2 87 D ABG HCO3 38 H ABG O2 Saturation 97 ABG Base Excess 13 H FiO2 60 Sodium 151 H 152 H Potassium 2.7 L* D 3.1 L Chloride 102 102 Carbon Dioxide 38.3 H 39.7 H Anion Gap 11 10 BUN 69 H 70 H Creatinine 2.3 H 2.3 H Estim Creat Clear Calc 54.3 L 54.3 L eGFR 31 L 31 L BUN/Creatinine Ratio 30 H 30 H Glucose 185 H 172 H Calculated Osmolality 324 H 326 H Calcium 8.9 8.8 Corrected Calcium 9.5 9.4 Phosphorus 3.0 3.2 Magnesium 1.7 Total Bilirubin 1.0 AST 27 ALT 22 Alkaline Phosphatase 108 B-Natriuretic Peptide 389 H Total Protein 6.1 Albumin 3.3 L 3.2 L Globulin 2.8 Albumin/Globulin Ratio 1.2 03/17/25 15:48 WBC RBC Hgb Hct MCV MCH MCHC RDW Std Deviation Plt Count Neut % (Auto) Lymph % (Auto) Williams % (Auto) Eos % (Auto) Baso % (Auto) Neut # (Auto) Lymph # (Auto) Williams # (Auto) Eos # (Auto) Baso # (Auto) Immature Gran # (Auto) Absolute Nucleated RBC Immature Gran % Nucleated RBC % Puncture Site ABG pH ABG pCO2 ABG pO2 ABG HCO3 ABG O2 Saturation ABG Base Excess FiO2 Sodium Potassium 3.8 D Chloride Carbon Dioxide Anion Gap BUN Creatinine Estim Creat Clear Calc eGFR BUN/Creatinine Ratio Glucose Calculated Osmolality Calcium Corrected Calcium Phosphorus Magnesium Total Bilirubin AST ALT Alkaline Phosphatase B-Natriuretic Peptide Total Protein Albumin Globulin Albumin/Globulin Ratio ABG Interpretation ABG results: 02/27/25 02/28/25 03/01/25 06:55 04:57 04:39 ABG pH 7.27 L 7.37 D 7.41 ABG pCO2 57 H 48 44 ABG pO2 101 78 L D 69 L ABG HCO3 26 28 H 28 H ABG O2 Saturation 98 95 93 ABG Base Excess -2 2 3 VBG pH VBG pCO2 VBG pO2 VBG Base Excess 03/01/25 03/01/25 03/02/25 13:15 14:52 04:25 ABG pH Cancelled 7.41 7.45 ABG pCO2 Cancelled 45 42 ABG pO2 Cancelled 53 L* 66 L ABG HCO3 Cancelled 28 H 29 H ABG O2 Saturation Cancelled 85 L 92 ABG Base Excess Cancelled 3 5 H VBG pH VBG pCO2 VBG pO2 VBG Base Excess 03/03/25 03/05/25 03/05/25 04:40 16:30 16:55 ABG pH 7.45 Cancelled 7.34 L D ABG pCO2 43 Cancelled 72 H* D ABG pO2 72 L Cancelled 83 ABG HCO3 30 H Cancelled 38 H ABG O2 Saturation 94 Cancelled 95 ABG Base Excess 5 H Cancelled 9 H VBG pH VBG pCO2 VBG pO2 VBG Base Excess 03/05/25 03/06/25 03/06/25 23:36 01:48 05:22 ABG pH 7.37 7.34 L 7.52 H D ABG pCO2 67 H 74 H* 47 D ABG pO2 150 H D 88 D 160 H D ABG HCO3 38 H 40 H 38 H ABG O2 Saturation 99 H 96 100 H ABG Base Excess 10 H 11 H 13 H VBG pH VBG pCO2 VBG pO2 VBG Base Excess 03/06/25 03/07/25 03/07/25 17:10 05:00 14:03 ABG pH 7.46 H ABG pCO2 53 H ABG pO2 65 L D ABG HCO3 38 H ABG O2 Saturation 93 ABG Base Excess 12 H VBG pH 7.50 7.52 VBG pCO2 50 47 VBG pO2 70 H 61 H VBG Base Excess 13 H 14 H 03/09/25 03/09/25 03/09/25 08:17 10:25 17:29 ABG pH 7.25 L D 7.29 L 7.29 L ABG pCO2 93 H* D 85 H* 88 H* ABG pO2 81 L 57 L* D 85 D ABG HCO3 41 H 40 H 43 H ABG O2 Saturation 95 89 L 97 ABG Base Excess 10 H 10 H 12 H VBG pH VBG pCO2 VBG pO2 VBG Base Excess 03/09/25 03/10/25 03/10/25 23:24 07:17 11:25 ABG pH 7.32 L 7.28 L 7.31 L ABG pCO2 78 H* D 90 H* D 81 H* ABG pO2 69 L 47 L* D 63 L ABG HCO3 40 H 43 H 41 H ABG O2 Saturation 94 80 L 93 ABG Base Excess 11 H 12 H 11 H VBG pH VBG pCO2 VBG pO2 VBG Base Excess 03/10/25 03/11/25 03/12/25 16:56 04:19 04:42 ABG pH 7.40 7.48 H 7.43 ABG pCO2 66 H D 54 H D 59 H ABG pO2 68 L 67 L 77 L ABG HCO3 41 H 40 H 39 H ABG O2 Saturation 94 94 96 ABG Base Excess 13 H 15 H 12 H VBG pH VBG pCO2 VBG pO2 VBG Base Excess 03/13/25 03/14/25 03/15/25 04:32 04:25 04:37 ABG pH 7.47 H 7.46 H 7.41 ABG pCO2 53 H 50 H 56 H ABG pO2 60 L 70 L 69 L ABG HCO3 38 H 36 H 35 H ABG O2 Saturation 93 95 95 ABG Base Excess 13 H 10 H 9 H VBG pH VBG pCO2 VBG pO2 VBG Base Excess 03/16/25 03/16/25 03/17/25 04:54 09:53 04:35 ABG pH 7.45 7.48 H 7.47 H ABG pCO2 51 H 49 H 53 H ABG pO2 68 L 34 L* D 87 D ABG HCO3 35 H 37 H 38 H ABG O2 Saturation 95 67 L 97 ABG Base Excess 10 H 12 H 13 H VBG pH VBG pCO2 VBG pO2 VBG Base Excess Quality Measures Quality Measures sepsis Current suspected stage: sepsis Possible source: pulmonary Blood cultures ordered: completed in ED Antibiotic ordered: Yes Advance care planning discussed with:: sibling Assessment & Plan Assessment Current Active Medications: Generic Name Dose Route Start Last Admin Trade Name Freq PRN Reason Stop Dose Admin Acetaminophen 650 mg 03/10/25 19:17 Acetaminophen 325 Mg Tablet PO 03/29/25 09:23 Q4HR PRN fever > 100.4 Al Hydrox/Mg Hydrox/Simethicone 30 ml 02/27/25 09:24 Mg Hyd/Al Hyd/Virgilio (Maalox Reg) Susp 30 Ml Udc PO 03/29/25 09:23 Q4HR PRN Heartburn or Upset Stomach Amiodarone HCl 200 mg 03/01/25 09:00 03/17/25 08:32 Amiodarone Hcl 200 Mg Tablet PO 03/31/25 08:59 200 mg QDAY KOURTNEY Administration Dextrose 25 ml 03/03/25 08:20 Dextrose 50%-Water Inj 50 Ml Syringe IV 04/02/25 08:19 Q15MIN PRN BG 50-70 responsive npo pt Dextrose 50 ml 03/03/25 08:20 Dextrose 50%-Water Inj 50 Ml Syringe IV 04/02/25 08:19 Q15MIN PRN BG <50 OR BG <70 & pt unresponsive Glucagon 1 mg 03/03/25 08:20 Glucagon Inj 1 Mg Vial IM Q15MIN PRN BG <70, and no IV access Heparin Sodium (Porcine) 7,500 unit 03/15/25 02:00 03/17/25 13:26 Heparin Sod Inj 5000 Unit/Ml Vial SC 03/29/25 01:59 7,500 unit Q8HR KOURTNEY Administration Cefepime HCl 1 gm/ Sodium 50 mls @ 100 mls/hr 03/11/25 21:00 03/17/25 08:35 Chloride IV 03/18/25 20:59 100 mls/hr Q12HR KOURTNEY Administration Albumin Human 25 gm in 100 mls @ 100 mls/hr 03/16/25 09:00 03/17/25 09:32 Albuminar-25 Ivpb IV 03/19/25 08:59 100 mls/hr QDAY KOURTNEY Administration Bumetanide 20 mg/ IV 80 mls @ 4 mls/hr 03/17/25 07:11 03/17/25 10:07 Miscellaneous Supplies IV 0 mg/hr .Q20H KOURTNEY 0 mls/hr Infusion 1 MG/HR Insulin Human Lispro 0 unit 03/06/25 06:00 03/17/25 12:00 Insulin Lispro (Admelog) 1 Unit/0.01 Ml Unit SC 04/05/25 05:59 1 unit Q6H KOURTNEY Administration Protocol Magnesium Hydroxide 30 ml 02/27/25 09:24 Milk Of Magnesia Susp 30 Ml Udc PO 03/29/25 09:23 QDAY PRN CONSTIPATION Metoprolol Tartrate 100 mg 03/14/25 21:00 03/17/25 08:32 Metoprolol Tartrate 25 Mg Tablet PO 04/13/25 20:59 100 mg BID KOURTNEY Administration Ondansetron HCl 4 mg 03/05/25 20:46 03/09/25 03:49 Ondansetron Inj 2 Mg/Ml Inj 2 Ml IV 04/04/25 20:45 4 mg Q6HR PRN Administration NAUSEA OR VOMITING Protocol Pantoprazole Sodium 40 mg 02/27/25 11:15 03/17/25 08:21 Pantoprazole Inj 40 Mg Vial IV 03/29/25 11:14 40 mg QDAY KOURTNEY Administration Rivaroxaban 20 mg 03/04/25 17:30 03/12/25 13:27 Rivaroxaban 10 Mg Tablet PO 04/03/25 17:29 Not Given WSUPPER KOURTNEY Plan 64-year-old male with significant past medical history of hypertension, diabetes mellitus, A-fib was admitted to the ICU on 02/27/2025 after coming in with altered mental status and shortness of breath, intubated for acute hypoxic respiratory failure and had suspected obesity hypoventilation syndrome/obstructive sleep apnea/pneumonia and acute kidney injury. He was extubated on 03/03 and downgraded then re-intubated on 03/06 due to confusion and tachypneia. He was then extubated and downgraded to the floor on 03/07. On 03/10, patient again had decreased mentation on the BiPAP so was reintubated and upgraded. Cardiology has been consulted for suspected heart failure. #Right congestive heart failure with preserved EF. #Severe BASIA/OHS. Echo on this admission showed poor quality images secondary to the patient's body habitus so was a technically limited study. Suspect chronic right heart failure in the setting of chronic obesity hypoventilation syndrome and obstructive sleep apnea. Currently appears to be more pulmonary component to respiratory failure than cardiac. Requiring ventilation support. Plan: -Continue with ventilatory support. -Monitor strict I&Os. -Limit sodium intake. -resume Bumex drip once electrolytes corrected. -Echo 02/27/25: IVC appears to be dilated and also estimated RVSP also appears to be at least moderately elevated at 55 mmHg. 03/14/25: Will hold dirutics for now , he was given IV fluids yesterday. 03/15/25 : Strawn catheter was placed by ICU team which showed PA pressure of more than 30s and wedge pressure was also high . started him on bumex drip . will continue the albumin . he is getting his peg tube today 03/16/25: ICU team tried another Strawn catheter today which showed RA pressure of 25, PA pressure of 38, PCWP of 23. Plan is to continue Bumex for him. Cr stable at 2.5 03/17/2025: Net fluid balance -3350 cc. ICU team held Bumex due to significant electrolyte abnormalities, potassium 2.7. Once repleted Bumex drip will be resumed. Continue current management and monitor patient. #Atrial fibrillation, rate controlled. Patient notes positive history of afib. He had previously been on metoprolol succinate 100 mg BID. Currently appears rate-controlled in the 100s. CHADS-VASc score 4 Plan: -Continue Metoprolol. -Resume Xarelto. -Continue amiodarone 200 mg qday. -Keep potassium >4.0 and mag >2.0. Rest of conditions to continue current management per primary team: #Acute hypoxic respiratory failure s/p tracheostomy. #Morbid obesity. #Community acquired pneumonia. #Elevated LFTs, resolved. #Hyperbilirubinemia, resolved. #History of type 2 diabetes. #Lactic acidosis, resolved. #KENIA on CKD. Discussed the patient with my attending Dr John. Poncho Espinosa MD, PGY 2. Disclaimer: This note was dictated by speech recognition. Minor errors in nutritional health coach may be present due to voice recognition software.
[2025-03-17] MEDS: POTASSIUM CHL 20 mEq IVPB 20 MEQ/100 ML BAG 50 MEQ IV ×2 (17:11→19:33)
--- NOTE | 2025-03-17 19:25 | ESPR_ITS ---
Documentation for date of: 03/17/25 Subjective Subjective Interval history: Patient evaluated Case discussed with internal medicine team NGT is okay at 50 cm because patient has basically no stomach NGT feeding can be started and the NGT can be used to Exam Vital Signs Temp Pulse Resp BP Pulse Ox O2 Del Method O2 Flow Rate 97.1 F 85 22 H 127/92 H 100 Mechanical Ventilation 5 03/17/25 16:00 03/17/25 18:43 03/14/25 15:01 03/17/25 18:43 03/17/25 18:43 03/15/25 16:00 03/10/25 11:46 FiO2 60 03/17/25 18:43 Objective Labs 03/17/25 05:47 03/17/25 15:48 Labs: Laboratory Results - last 24 hr 03/17/25 03/17/25 03/17/25 04:35 05:47 11:58 WBC 9.4 RBC 4.19 L Hgb 12.0 L Hct 38.2 L MCV 91 MCH 28.6 MCHC 31.4 RDW Std Deviation 47.3 H Plt Count 325 Neut % (Auto) 76 Lymph % (Auto) 9 L [place] % (Auto) 10 Eos % (Auto) 3 Baso % (Auto) 1 Neut # (Auto) 7.2 Lymph # (Auto) 0.9 L [place] # (Auto) 1.0 H Eos # (Auto) 0.3 Baso # (Auto) 0.1 Immature Gran # (Auto) 0.09 H Absolute Nucleated RBC 0.00 Immature Gran % 1 H Nucleated RBC % 0 Puncture Site Right Radial ABG pH 7.47 H ABG pCO2 53 H ABG pO2 87 D ABG HCO3 38 H ABG O2 Saturation 97 ABG Base Excess 13 H FiO2 60 Sodium 151 H 152 H Potassium 2.7 L* D 3.1 L Chloride 102 102 Carbon Dioxide 38.3 H 39.7 H Anion Gap 11 10 BUN 69 H 70 H Creatinine 2.3 H 2.3 H Estim Creat Clear Calc 54.3 L 54.3 L eGFR 31 L 31 L BUN/Creatinine Ratio 30 H 30 H Glucose 185 H 172 H Calculated Osmolality 324 H 326 H Calcium 8.9 8.8 Corrected Calcium 9.5 9.4 Phosphorus 3.0 3.2 Magnesium 1.7 Total Bilirubin 1.0 AST 27 ALT 22 Alkaline Phosphatase 108 B-Natriuretic Peptide 389 H Total Protein 6.1 Albumin 3.3 L 3.2 L Globulin 2.8 Albumin/Globulin Ratio 1.2 03/17/25 15:48 WBC RBC Hgb Hct MCV MCH MCHC RDW Std Deviation Plt Count Neut % (Auto) Lymph % (Auto) [place] % (Auto) Eos % (Auto) Baso % (Auto) Neut # (Auto) Lymph # (Auto) [place] # (Auto) Eos # (Auto) Baso # (Auto) Immature Gran # (Auto) Absolute Nucleated RBC Immature Gran % Nucleated RBC % Puncture Site ABG pH ABG pCO2 ABG pO2 ABG HCO3 ABG O2 Saturation ABG Base Excess FiO2 Sodium Potassium 3.8 D Chloride Carbon Dioxide Anion Gap BUN Creatinine Estim Creat Clear Calc eGFR BUN/Creatinine Ratio Glucose Calculated Osmolality Calcium Corrected Calcium Phosphorus Magnesium Total Bilirubin AST ALT Alkaline Phosphatase B-Natriuretic Peptide Total Protein Albumin Globulin Albumin/Globulin Ratio Impressions Impression: Status post Diego-en-Y gastrojejunostomy NGT is fine at 50 cm ABG Interpretation ABG results: 02/27/25 02/28/25 03/01/25 06:55 04:57 04:39 ABG pH 7.27 L 7.37 D 7.41 ABG pCO2 57 H 48 44 ABG pO2 101 78 L D 69 L ABG HCO3 26 28 H 28 H ABG O2 Saturation 98 95 93 ABG Base Excess -2 2 3 VBG pH VBG pCO2 VBG pO2 VBG Base Excess 03/01/25 03/01/25 03/02/25 13:15 14:52 04:25 ABG pH Cancelled 7.41 7.45 ABG pCO2 Cancelled 45 42 ABG pO2 Cancelled 53 L* 66 L ABG HCO3 Cancelled 28 H 29 H ABG O2 Saturation Cancelled 85 L 92 ABG Base Excess Cancelled 3 5 H VBG pH VBG pCO2 VBG pO2 VBG Base Excess 03/03/25 03/05/25 03/05/25 04:40 16:30 16:55 ABG pH 7.45 Cancelled 7.34 L D ABG pCO2 43 Cancelled 72 H* D ABG pO2 72 L Cancelled 83 ABG HCO3 30 H Cancelled 38 H ABG O2 Saturation 94 Cancelled 95 ABG Base Excess 5 H Cancelled 9 H VBG pH VBG pCO2 VBG pO2 VBG Base Excess 03/05/25 03/06/25 03/06/25 23:36 01:48 05:22 ABG pH 7.37 7.34 L 7.52 H D ABG pCO2 67 H 74 H* 47 D ABG pO2 150 H D 88 D 160 H D ABG HCO3 38 H 40 H 38 H ABG O2 Saturation 99 H 96 100 H ABG Base Excess 10 H 11 H 13 H VBG pH VBG pCO2 VBG pO2 VBG Base Excess 03/06/25 03/07/25 03/07/25 17:10 05:00 14:03 ABG pH 7.46 H ABG pCO2 53 H ABG pO2 65 L D ABG HCO3 38 H ABG O2 Saturation 93 ABG Base Excess 12 H VBG pH 7.50 7.52 VBG pCO2 50 47 VBG pO2 70 H 61 H VBG Base Excess 13 H 14 H 03/09/25 03/09/25 03/09/25 08:17 10:25 17:29 ABG pH 7.25 L D 7.29 L 7.29 L ABG pCO2 93 H* D 85 H* 88 H* ABG pO2 81 L 57 L* D 85 D ABG HCO3 41 H 40 H 43 H ABG O2 Saturation 95 89 L 97 ABG Base Excess 10 H 10 H 12 H VBG pH VBG pCO2 VBG pO2 VBG Base Excess 03/09/25 03/10/25 03/10/25 23:24 07:17 11:25 ABG pH 7.32 L 7.28 L 7.31 L ABG pCO2 78 H* D 90 H* D 81 H* ABG pO2 69 L 47 L* D 63 L ABG HCO3 40 H 43 H 41 H ABG O2 Saturation 94 80 L 93 ABG Base Excess 11 H 12 H 11 H VBG pH VBG pCO2 VBG pO2 VBG Base Excess 03/10/25 03/11/25 03/12/25 16:56 04:19 04:42 ABG pH 7.40 7.48 H 7.43 ABG pCO2 66 H D 54 H D 59 H ABG pO2 68 L 67 L 77 L ABG HCO3 41 H 40 H 39 H ABG O2 Saturation 94 94 96 ABG Base Excess 13 H 15 H 12 H VBG pH VBG pCO2 VBG pO2 VBG Base Excess 03/13/25 03/14/25 03/15/25 04:32 04:25 04:37 ABG pH 7.47 H 7.46 H 7.41 ABG pCO2 53 H 50 H 56 H ABG pO2 60 L 70 L 69 L ABG HCO3 38 H 36 H 35 H ABG O2 Saturation 93 95 95 ABG Base Excess 13 H 10 H 9 H VBG pH VBG pCO2 VBG pO2 VBG Base Excess 03/16/25 03/16/25 03/17/25 04:54 09:53 04:35 ABG pH 7.45 7.48 H 7.47 H ABG pCO2 51 H 49 H 53 H ABG pO2 68 L 34 L* D 87 D ABG HCO3 35 H 37 H 38 H ABG O2 Saturation 95 67 L 97 ABG Base Excess 10 H 12 H 13 H VBG pH VBG pCO2 VBG pO2 VBG Base Excess Assessment & Plan A&P Narrative # Evaluation for placement of a PEG tube I have tentatively schedule the patient for tomorrow afternoon It is going to be a technical challenge as patient is morbidly obese and there may not be a long enough catheter to intubate the cavity of the stomach Nonetheless it should be given for endoscopic placement of the PEG tube Other medical problems include Acute hypoxic respiratory failure requiring initially endotracheal intubation now tracheostomy and mechanical ventilation Chronic atrial fibrillation Diabetes mellitus type 2 Essential hypertension Thank you very much for the opportunity to participate in the care of this patient Time Spent With Patient Time: Total time spent is greater than 50% in coordination of care (as documented) at patient's floor/unit and/or counseling patient:
[2025-03-17] MEDS: ACETAzolaMIDE SOD 500 MG in SODIUM CHLORIDE 0.9% 50 ML 100 MG IV (19:38)
--- NOTE | 2025-03-17 20:00 | XR_ITS ---
Examination: AP chest single view TECHNIQUE: AP portable sitting chest single view Exam date and time: March 17, 2025 1932 hours INDICATIONS: Post orogastric tube placement FINDINGS: Orogastric tube is in a left lower lobe bronchial airway Enlarged cardiac contour again noted with prominent vascular congestion and bibasilar pneumonia IMPRESSION: Remove the orogastric tube completely and reinsert
--- NOTE | 2025-03-17 21:29 | PC.NURSE ---
Dr Tracy notified of ng tube not able to replace after several attempts- last xray obtained stated to remove and reinsert. pt getting a j tube insertion tomorrow per Dr Tracy hold reinsertion until am shift.
[2025-03-17] MEDS: BUMETANIDE INJ 0.25 MG/ML VIAL 4 ML 2 MG IVP (21:39)
[2025-03-18] VITALS (36 sets, daily range): BP systolic 91–174; BP diastolic 63–151; PULSE 85–136; RESP 10–35; TEMP 36.3–36.8; O2SAT 82–100; BMI 69.7
[2025-03-18 01:05] LABS: Albumin, Serum 3.2 gm/dL (3.4-4.8); Anion Gap 11 (7-16); BUN/Creatinine Ratio 29 Ratio (12-20); Blood Urea Nitrogen 66 mg/dL (9-23); Calcium 8.8 mg/dL (8.3-10.6); Calcium (Corrected) 9.4 mg/dL (8.5-10.1); Carbon Dioxide 36.9 mMol/L (20.0-31.0); Chloride 103 mMol/L (98-107); Creatinine (Component) 2.3 mg/dL (0.6-1.3); Estimated Creatinine Clearance 54.3 mL/min (>60); Glucose 182 mg/dL (74-106); Osmolality,Calculated 323 (275-295); Phosphorous 3.1 mg/dL (2.4-5.1); Potassium 3.4 mMol/L (3.4-5.1); Sodium 151 mMol/L (136-145); eGFR 31 See Note
[2025-03-18 04:38] LABS: Base Excess 12 (-3-3); HCO3 38 mEq/L (20-26); Inspired Oxygen, FIO2 60 %; O2 Saturation 99 % (91-98); PCO2 57 mmHg (32.0-48.0); PO2 107 mmHg (83-108); pH, Arterial 7.44 (7.35-7.45)
[2025-03-18 04:41] LABS: Allen Test Performed/OK; Puncture Site Left Brachial
--- NOTE | 2025-03-18 06:00 | XR_ITS ---
Examination: AP chest single view Technique one AP portable semiupright chest single view Exam date and time: 2024 at 0526 hours Comparison March 17, 2025 INDICATIONS: Acute hypoxic respiratory failure this week, tracheostomy tube, bibasilar pneumonia on earlier chest imaging FINDINGS: Mild enlargement cardiac contour Bibasilar pneumonia extensive at the left base Tracheostomy tube tip 6 cm above nunu Right internal jugular line proximal SVC Moderate vascular congestion Moderate osteopenia IMPRESSION: Bibasilar pneumonia, significant left base
[2025-03-18 06:10] LABS: Basophils # (Auto) 0.1 Thou/mm3 (0.0-0.2); Basophils % (Auto) 1 % (0-2.5); Eosinophils # (Auto) 0.3 Thou/mm3 (0.0-0.5); Eosinophils % (Auto) 3 % (0-10); Hematocrit 37.3 % (41.0-53.0); Hemoglobin 11.8 g/dL (13.5-16.0); Immature Granulocytes % (Auto) 1 % (0-0); Immature Granulocytes Auto 0.09 Thou/mm3 (0.00-0.00); Lymphocytes # (Auto) 0.9 Thou/mm3 (1.0-4.8); Lymphocytes % (Auto) 9 % (10-50); Mean Corpuscular HGB Conc 31.6 g/dl (31.0-37.0); Mean Corpuscular Hemoglobin 28.5 pg (25.0-35.0); Mean Corpuscular Volume 90 fL (80-100); Monocytes # (Auto) 1.2 Thou/mm3 (0.0-0.8); Monocytes % (Auto) 13 % (0-12); Neutrophils # (Auto) 6.8 Thou/mm3 (1.8-7.7); Neutrophils % (Auto) 73 % (37-80); Nucleated Red Blood Cell % 0 /100 WBC (0); Platelet Count 275 Thou/mm3 (140-440); RDW Standard Deviation 46.7 fL (35.1-43.9); Red Blood Count 4.14 Miln/mm3 (4.50-5.90); White Blood Count 9.3 Thou/mm3 (3.8-10.6)
[2025-03-18 06:15] LABS: INR 1.2 (0.9-1.3); Partial Thromboplastin Time 30.7 Seconds (22.0-36.0); Prothrombin Time 13.4 Seconds (9.0-12.2)
[2025-03-18 06:22] LABS: Alanine Aminotransferase 19 U/L (10-49); Albumin/Globulin Ratio 1.1 (1.2-2.2); Alkaline Phosphatase 103 U/L (46-116); Anion Gap 10 (7-16); Aspartate Amino Transferase 22 U/L (0-34); BUN/Creatinine Ratio 30 Ratio (12-20); Blood Urea Nitrogen 69 mg/dL (9-23); Calcium 8.8 mg/dL (8.3-10.6); Calcium (Corrected) 9.6 mg/dL (8.5-10.1); Carbon Dioxide 39.7 mMol/L (20.0-31.0); Chloride 103 mMol/L (98-107); Creatinine (Component) 2.3 mg/dL (0.6-1.3); Estimated Creatinine Clearance 54.3 mL/min (>60); Globulin 2.8 gm/dL (2.3-3.5); Glucose 185 mg/dL (74-106); Magnesium 1.9 mg/dL (1.6-2.6); Osmolality,Calculated 328 (275-295); Phosphorous 3.1 mg/dL (2.4-5.1); Potassium 3.3 mMol/L (3.4-5.1); Sodium 153 mMol/L (136-145); Total Protein 5.8 gm/dL (5.7-8.2); eGFR 31 See Note
[2025-03-18] MEDS: POTASSIUM CHL 20 mEq IVPB 20 MEQ/100 ML BAG 50 MEQ IV ×4 (06:22→11:27)
[2025-03-18] MEDS: INSULIN LISPRO (AdmeLOG) 1 UNIT/0.01 ML UNIT SC ×4 (06:41→23:57)
[2025-03-18] MEDS: CEFEPIME INJ 1 GM in SODIUM CHLORIDE 0.9% (Popper) 50 ML IV (09:15)
[2025-03-18] MEDS: ALBUMIN HUMAN 25% IVPB 25 GM/100 ML BTL IV (09:15)
[2025-03-18] MEDS: PANTOPRAZOLE INJ 40 MG VIAL IV (09:15)
[2025-03-18] MEDS: BUMETANIDE INJ 0.25 MG/ML VIAL 4 ML 2 MG IVP ×2 (09:16→21:28)
--- NOTE | 2025-03-18 09:22 | PD.RESPRO ---
Documentation for date of: 03/18/25 Subjective Subjective Interval history: Mr. Ortega is a 64-year-old male with past medical history of DM2, hypertension, and A-fib Morbid obesity by BMIwas admitted to the ICU on 02/27/2025 after coming to the ED with complaints of altered mental status and shortness of breath. Patient was intubated in the ED therefore most of the history was taken from chart review and from the parents who are at bedside. EMS found the patient on the floor and he was saturating in the 70s even on high flow nasal cannula. Given his hypoxia patient was intubated in the ED. Patient spiked a fever while in the ED and he became hypotensive unresponsive to IV fluids therefore he was placed on vasopressors. During course of hospitalization patient had decreasing kidney function, patient notably edematous and has vascular congestion on x-ray, therefore was treated with Bumex. Despite diuresis therapy, patient kidney function continued to worsen, diuresis positive patient given free water flushes. Patient has had notably low albumin, ICU team recently started patient on albumin but not at the same time as diuretics. Nephrology was consulted due to worsening kidney function. Tracheostomy placed yesterday. Labs today show WBC 12.5, hemoglobin 12.1, platelets 346. Sodium 149, potassium 3.6, chloride 104, bicarb 33.5. BUN 76, creatinine 2.7, EGFR 25. Hemoglobin A1c 7.6%. 03/16/2025: Patient seen and examined at bedside. Patient had 0.5 L in, 1.8 L urinary output, length of stay net -1.6 L. UA showed trace protein and blood, 2+ bacteria, 3+ uric acid crystals, 99 total protein, 104 creatinine. Catheter showed elevated wedge pressure suspect right heart failure due to chronic pulmonary hypertension related to patient's weight. Sodium increased to 150, free water deficits 4.5 L. Bicarb 34.7, BUN 73, creatinine 2.5, EGFR 28. However improved to 3.3, uric acid 9.0. Renal ultrasound was taken, however was unable to visualize kidneys. Will continue to diurese patient and provide albumin, possibly will need dialysis starting Tuesday if does not improve. 03/17/2025 patient currently seen in ICU. Remains on the ventilator. Patient still with significant anasarca. Blood sugar 143. Blood pressure 127/92, heart rate 85. Hemoglobin 12. Sodium 152, potassium 3.8, bicarbonate 39.7, BUN 70, creatinine 2.3, blood sugar 172, calcium 9.4, phosphorus 3.2, magnesium 1.7, LFTs normal, BNP 389, albumin 3.2, chest x-ray showed significant edema 03/18/2025: Patient seen and examioned in ICU. Remains on ventilator, trached. Significant anasarca. 0.5L in, 3.1L out. sodium 153, bicarb 39.7, BUN 69, creatinine 2.3, eGFR31. Resume free water for hypernatremia, continue bumex for diauresis. Exam Vital Signs Temp Pulse Resp BP Pulse Ox O2 Del Method O2 Flow Rate 97.6 F 93 22 H 121/82 100 Mechanical Ventilation 5 03/18/25 04:00 03/18/25 09:16 03/14/25 15:01 03/18/25 09:16 03/18/25 06:38 03/15/25 16:00 03/10/25 11:46 FiO2 50 03/18/25 06:38 Narrative Exam PE: Gen: Well-developed and well-nourished. Morbidly Obese. HEENT: NCAT, PERRLA, EOMI, MMM, anicteric conjunctivae. CVS: normal S1 and S2. RRR. No M/R/G. Resp: CTA B/L. No rhonchi, rales, crackles or wheezing. Poor lung sounds due to body habitus. Coarse due to ventilator. Abd: soft, non-tender, non-distended. MSK: Good ROM in BUE & BLE. No rash. Diffuse 3+ pitting edema in all extremities. Neuro: CN II-XII grossly intact. Tracheostomy in place. Objective Labs 03/18/25 05:30 03/18/25 05:30 Labs: Laboratory Results - last 24 hr 03/17/25 03/17/25 03/18/25 11:58 15:48 00:35 WBC RBC Hgb Hct MCV MCH MCHC RDW Std Deviation Plt Count Neut % (Auto) Lymph % (Auto) [place] % (Auto) Eos % (Auto) Baso % (Auto) Neut # (Auto) Lymph # (Auto) [place] # (Auto) Eos # (Auto) Baso # (Auto) Immature Gran # (Auto) Absolute Nucleated RBC Immature Gran % Nucleated RBC % PT INR APTT Puncture Site ABG pH ABG pCO2 ABG pO2 ABG HCO3 ABG O2 Saturation ABG Base Excess FiO2 Sodium 152 H 151 H Potassium 3.1 L 3.8 D 3.4 Chloride 102 103 Carbon Dioxide 39.7 H 36.9 H Anion Gap 10 11 BUN 70 H 66 H Creatinine 2.3 H 2.3 H Estim Creat Clear Calc 54.3 L 54.3 L eGFR 31 L 31 L BUN/Creatinine Ratio 30 H 29 H Glucose 172 H 182 H Calculated Osmolality 326 H 323 H Calcium 8.8 8.8 Corrected Calcium 9.4 9.4 Phosphorus 3.2 3.1 Magnesium Total Bilirubin AST ALT Alkaline Phosphatase B-Natriuretic Peptide 389 H Total Protein Albumin 3.2 L 3.2 L Globulin Albumin/Globulin Ratio 03/18/25 03/18/25 04:26 05:30 WBC 9.3 RBC 4.14 L Hgb 11.8 L Hct 37.3 L MCV 90 MCH 28.5 MCHC 31.6 RDW Std Deviation 46.7 H Plt Count 275 D Neut % (Auto) 73 Lymph % (Auto) 9 L [place] % (Auto) 13 H Eos % (Auto) 3 Baso % (Auto) 1 Neut # (Auto) 6.8 Lymph # (Auto) 0.9 L [place] # (Auto) 1.2 H Eos # (Auto) 0.3 Baso # (Auto) 0.1 Immature Gran # (Auto) 0.09 H Absolute Nucleated RBC 0.00 Immature Gran % 1 H Nucleated RBC % 0 PT 13.4 H INR 1.2 APTT 30.7 Puncture Site Left Brachial ABG pH 7.44 ABG pCO2 57 H ABG pO2 107 D ABG HCO3 38 H ABG O2 Saturation 99 H ABG Base Excess 12 H FiO2 60 Sodium 153 H Potassium 3.3 L Chloride 103 Carbon Dioxide 39.7 H Anion Gap 10 BUN 69 H Creatinine 2.3 H Estim Creat Clear Calc 54.3 L eGFR 31 L BUN/Creatinine Ratio 30 H Glucose 185 H Calculated Osmolality 328 H Calcium 8.8 Corrected Calcium 9.6 Phosphorus 3.1 Magnesium 1.9 Total Bilirubin 1.0 AST 22 ALT 19 Alkaline Phosphatase 103 B-Natriuretic Peptide Total Protein 5.8 Albumin 3.0 L Globulin 2.8 Albumin/Globulin Ratio 1.1 L ABG Interpretation ABG results: 02/27/25 02/28/25 03/01/25 06:55 04:57 04:39 ABG pH 7.27 L 7.37 D 7.41 ABG pCO2 57 H 48 44 ABG pO2 101 78 L D 69 L ABG HCO3 26 28 H 28 H ABG O2 Saturation 98 95 93 ABG Base Excess -2 2 3 VBG pH VBG pCO2 VBG pO2 VBG Base Excess 03/01/25 03/01/25 03/02/25 13:15 14:52 04:25 ABG pH Cancelled 7.41 7.45 ABG pCO2 Cancelled 45 42 ABG pO2 Cancelled 53 L* 66 L ABG HCO3 Cancelled 28 H 29 H ABG O2 Saturation Cancelled 85 L 92 ABG Base Excess Cancelled 3 5 H VBG pH VBG pCO2 VBG pO2 VBG Base Excess 03/03/25 03/05/25 03/05/25 04:40 16:30 16:55 ABG pH 7.45 Cancelled 7.34 L D ABG pCO2 43 Cancelled 72 H* D ABG pO2 72 L Cancelled 83 ABG HCO3 30 H Cancelled 38 H ABG O2 Saturation 94 Cancelled 95 ABG Base Excess 5 H Cancelled 9 H VBG pH VBG pCO2 VBG pO2 VBG Base Excess 03/05/25 03/06/25 03/06/25 23:36 01:48 05:22 ABG pH 7.37 7.34 L 7.52 H D ABG pCO2 67 H 74 H* 47 D ABG pO2 150 H D 88 D 160 H D ABG HCO3 38 H 40 H 38 H ABG O2 Saturation 99 H 96 100 H ABG Base Excess 10 H 11 H 13 H VBG pH VBG pCO2 VBG pO2 VBG Base Excess 03/06/25 03/07/25 03/07/25 17:10 05:00 14:03 ABG pH 7.46 H ABG pCO2 53 H ABG pO2 65 L D ABG HCO3 38 H ABG O2 Saturation 93 ABG Base Excess 12 H VBG pH 7.50 7.52 VBG pCO2 50 47 VBG pO2 70 H 61 H VBG Base Excess 13 H 14 H 03/09/25 03/09/25 03/09/25 08:17 10:25 17:29 ABG pH 7.25 L D 7.29 L 7.29 L ABG pCO2 93 H* D 85 H* 88 H* ABG pO2 81 L 57 L* D 85 D ABG HCO3 41 H 40 H 43 H ABG O2 Saturation 95 89 L 97 ABG Base Excess 10 H 10 H 12 H VBG pH VBG pCO2 VBG pO2 VBG Base Excess 03/09/25 03/10/25 03/10/25 23:24 07:17 11:25 ABG pH 7.32 L 7.28 L 7.31 L ABG pCO2 78 H* D 90 H* D 81 H* ABG pO2 69 L 47 L* D 63 L ABG HCO3 40 H 43 H 41 H ABG O2 Saturation 94 80 L 93 ABG Base Excess 11 H 12 H 11 H VBG pH VBG pCO2 VBG pO2 VBG Base Excess 03/10/25 03/11/25 03/12/25 16:56 04:19 04:42 ABG pH 7.40 7.48 H 7.43 ABG pCO2 66 H D 54 H D 59 H ABG pO2 68 L 67 L 77 L ABG HCO3 41 H 40 H 39 H ABG O2 Saturation 94 94 96 ABG Base Excess 13 H 15 H 12 H VBG pH VBG pCO2 VBG pO2 VBG Base Excess 03/13/25 03/14/25 03/15/25 04:32 04:25 04:37 ABG pH 7.47 H 7.46 H 7.41 ABG pCO2 53 H 50 H 56 H ABG pO2 60 L 70 L 69 L ABG HCO3 38 H 36 H 35 H ABG O2 Saturation 93 95 95 ABG Base Excess 13 H 10 H 9 H VBG pH VBG pCO2 VBG pO2 VBG Base Excess 03/16/25 03/16/25 03/17/25 04:54 09:53 04:35 ABG pH 7.45 7.48 H 7.47 H ABG pCO2 51 H 49 H 53 H ABG pO2 68 L 34 L* D 87 D ABG HCO3 35 H 37 H 38 H ABG O2 Saturation 95 67 L 97 ABG Base Excess 10 H 12 H 13 H VBG pH VBG pCO2 VBG pO2 VBG Base Excess 03/18/25 04:26 ABG pH 7.44 ABG pCO2 57 H ABG pO2 107 D ABG HCO3 38 H ABG O2 Saturation 99 H ABG Base Excess 12 H VBG pH VBG pCO2 VBG pO2 VBG Base Excess Quality Measures Quality Measures sepsis Current suspected stage: sepsis Possible source: pulmonary Blood cultures ordered: completed in ED Antibiotic ordered: Yes Advance care planning discussed with:: patient Assessment & Plan Assessment Current Active Medications: Generic Name Dose Route Start Last Admin Trade Name Freq PRN Reason Stop Dose Admin Acetaminophen 650 mg 03/10/25 19:17 Acetaminophen 325 Mg Tablet PO 03/29/25 09:23 Q4HR PRN fever > 100.4 Al Hydrox/Mg Hydrox/Simethicone 30 ml 02/27/25 09:24 Mg Hyd/Al Hyd/Virgilio (Maalox Reg) Susp 30 Ml Udc PO 03/29/25 09:23 Q4HR PRN Heartburn or Upset Stomach Amiodarone HCl 200 mg 03/01/25 09:00 03/18/25 09:12 Amiodarone Hcl 200 Mg Tablet PO 03/31/25 08:59 Not Given QDAY KOURTNEY Bumetanide 2 mg 03/17/25 21:00 03/18/25 09:16 Bumetanide Inj 0.25 Mg/Ml Vial 4 Ml IVP 04/16/25 20:59 2 mg BID KOURTNEY Administration Dextrose 25 ml 03/03/25 08:20 Dextrose 50%-Water Inj 50 Ml Syringe IV 04/02/25 08:19 Q15MIN PRN BG 50-70 responsive npo pt Dextrose 50 ml 03/03/25 08:20 Dextrose 50%-Water Inj 50 Ml Syringe IV 04/02/25 08:19 Q15MIN PRN BG <50 OR BG <70 & pt unresponsive Glucagon 1 mg 03/03/25 08:20 Glucagon Inj 1 Mg Vial IM Q15MIN PRN BG <70, and no IV access Heparin Sodium (Porcine) 7,500 unit 03/15/25 02:00 03/18/25 06:29 Heparin Sod Inj 5000 Unit/Ml Vial SC 03/29/25 01:59 Not Given Q8HR KOURTNEY Cefepime HCl 1 gm/ Sodium 50 mls @ 100 mls/hr 03/11/25 21:00 03/18/25 09:15 Chloride IV 03/18/25 20:59 100 mls/hr Q12HR KOURTNEY Administration Albumin Human 25 gm in 100 mls @ 100 mls/hr 03/16/25 09:00 03/18/25 09:15 Albuminar-25 Ivpb IV 03/19/25 08:59 100 mls/hr QDAY KOURTNEY Administration Potassium Chloride 20 meq in 100 mls @ 50 mls/hr 03/18/25 09:09 Kcl Ivpb IV 03/18/25 13:08 Q2H KOURTNEY Insulin Human Lispro 0 unit 03/06/25 06:00 03/18/25 06:41 Insulin Lispro (Admelog) 1 Unit/0.01 Ml Unit SC 04/05/25 05:59 1 unit Q6H KOURTNEY Administration Protocol Magnesium Hydroxide 30 ml 02/27/25 09:24 Milk Of Magnesia Susp 30 Ml Udc PO 03/29/25 09:23 QDAY PRN CONSTIPATION Ondansetron HCl 4 mg 03/05/25 20:46 03/09/25 03:49 Ondansetron Inj 2 Mg/Ml Inj 2 Ml IV 04/04/25 20:45 4 mg Q6HR PRN Administration NAUSEA OR VOMITING Protocol Pantoprazole Sodium 40 mg 02/27/25 11:15 03/18/25 09:15 Pantoprazole Inj 40 Mg Vial IV 03/29/25 11:14 40 mg QDAY KOURTNEY Administration Rivaroxaban 20 mg 03/04/25 17:30 03/12/25 13:27 Rivaroxaban 10 Mg Tablet PO 04/03/25 17:29 Not Given WSUPPER KOURTNEY Plan 64-year-old male with past medical history of DM2, hypertension, and A-fib was admitted to the ICU on 02/27/2025 for acute hypoxic respiratory failure and altered mental status requiring intubation. Nephrology consulted for acute renal failure with worsening kidney function. #KENIA #Metabolic alkalosis #Hypernatremia, Hyper-osmolar Patient has no history of chronic kidney disease. Patient developed KENIA with worsening renal function during hospitalization. Initially suspected of cardiorenal syndrome, was treated with IV Bumex. Despite diuretic therapy patient kidney function continued to worsen. Suspect currently in ATN. Bumex was held, patient started on free water flushes. Patient continued to have worsening kidney function. Patient started on albumin today. Patient appears intravascularly depleted and intravascularly fluid overloaded. Ultrasound taken, unable to visualize kidneys. Urinalysis done showing trace blood, trace protein, 3+ uric acid crystals, 2+ bacteria. Urine total protein 99, urine creatinine 104. Nephrotic proteinuria ruled out, suspect KENIA related to right heart failure in the setting of elevated cardiac wedge pressure. -Avoid nephrotoxic agent -Renally dose medication -Monitor daily labs -Continue free water flushes with goal of slow correction of free water deficit 4.5 L -Recommend albumin with Bumex drip for Significant anasarca In the setting of hypoalbuminemia #Acute encephalopathy #Right diastolic CHF #Hx of A-fib #Acute on chronic hypoxic and hypercapnic respiratory failure #Obesity hypoventilation syndrome and obstructive sleep apnea #Community-acquired pneumonia, Enterobacter [place] #Morbid obesity #DM2 #Community-acquired pneumonia, Enterobacter [place] Management as per primary team Thank you for allowing us to participate in the care of this patient. Management discussed with attending Dr. Gannon. Anil Rodriguez MD PGY?1 Attending Provider Attestation/Addendum Patient seen and examined with resident physician Dr. Campos. Note reviewed, agree with findings and recommendations. 03/18/2025 Morbidly obese gentleman presented with acute hypoxic/hypercarbic respiratory failure. On ventilator. Significant anasarca noted. continue with diuretics. Patient made good urine. Currently in KENIA. Hypernatremia-on free water flushes. Agree with diuretics with albumin. If no improvement in the renal function or if patient continues to be in significant anasarcic state-he might need sequential ultrafiltration. one dose Diamox given yesterday, today Plan of care discussed with ICU team.
--- NOTE | 2025-03-18 13:23 | PC.RT ---
PER DR JUÁREZ I TOOK THE PT OFF THE VENT AND PLACED HIM ON BLOWBY AT 10L@40% PT IS DOING WELL.
--- NOTE | 2025-03-18 13:45 | ESPR_ITS ---
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 Posey and primary team patient remains volume overloaded hypoalbuminemia critically ill condition patient still on ventilator with tracheostomy massive anasarca hemodynamic monitoring is performed A-fib rate controlled reasonably well heart failure appears well compensated still has right heart failure symptoms. Spent more than 40 minutes going over all her questions concerns and coordination of the care patient remains intensive care unit critical condition we will continue to monitor the patient closely evaluated patient with resident team agree with the treatment plan recommendation as documented by Documentation for date of: 03/18/25 Subjective Subjective Interval history: Patient was examined at bedside this afternoon in ICU. no acute overnight events, he received one dose of diamox yesterday, will continue to diures, he is off ventillor in blowby with PRN ventillator when he gets tired. Exam Vital Signs Temp Pulse Resp BP Pulse Ox O2 Del Method O2 Flow Rate 97.4 F 104 H 24 H 139/81 H 99 Mechanical Ventilation 10 03/18/25 12:00 03/18/25 13:15 03/18/25 13:15 03/18/25 12:00 03/18/25 13:15 03/18/25 12:00 03/18/25 13:15 FiO2 40 03/18/25 13:15 Narrative Exam Gen: Well-developed and well-nourished morbidly obese male. HEENT: NCAT, PERRLA, EOMI, MMM, anicteric conjunctivae, tracheostomy in place. CVS: Decreased heart sounds, normal S1 and S2. RRR. No M/R/G. Resp: Decreased breath sounds B/L. No rhonchi, rales, crackles or wheezing. Abd: soft, morbidly obese, non-tender, non-distended. BS+ in all 4 quadrants. Pitting edema over bilateral flanks and sides. MSK: Good ROM in BUE & BLE. 3+ pitting edema BLE. Neuro: Limited exam due to medical condition. Objective Labs 03/18/25 05:30 03/18/25 17:18 Labs: Laboratory Results - last 24 hr 03/17/25 03/17/25 03/18/25 11:58 15:48 00:35 WBC RBC Hgb Hct MCV MCH MCHC RDW Std Deviation Plt Count Neut % (Auto) Lymph % (Auto) [place] % (Auto) Eos % (Auto) Baso % (Auto) Neut # (Auto) Lymph # (Auto) [place] # (Auto) Eos # (Auto) Baso # (Auto) Immature Gran # (Auto) Absolute Nucleated RBC Immature Gran % Nucleated RBC % PT INR APTT Puncture Site ABG pH ABG pCO2 ABG pO2 ABG HCO3 ABG O2 Saturation ABG Base Excess FiO2 Sodium 151 H Potassium 3.8 D 3.4 Chloride 103 Carbon Dioxide 36.9 H Anion Gap 11 BUN 66 H Creatinine 2.3 H Estim Creat Clear Calc 54.3 L eGFR 31 L BUN/Creatinine Ratio 29 H Glucose 182 H Calculated Osmolality 323 H Calcium 8.8 Corrected Calcium 9.4 Phosphorus 3.1 Magnesium Total Bilirubin AST ALT Alkaline Phosphatase B-Natriuretic Peptide 389 H Total Protein Albumin 3.2 L Globulin Albumin/Globulin Ratio 03/18/25 03/18/25 04:26 05:30 WBC 9.3 RBC 4.14 L Hgb 11.8 L Hct 37.3 L MCV 90 MCH 28.5 MCHC 31.6 RDW Std Deviation 46.7 H Plt Count 275 D Neut % (Auto) 73 Lymph % (Auto) 9 L [place] % (Auto) 13 H Eos % (Auto) 3 Baso % (Auto) 1 Neut # (Auto) 6.8 Lymph # (Auto) 0.9 L [place] # (Auto) 1.2 H Eos # (Auto) 0.3 Baso # (Auto) 0.1 Immature Gran # (Auto) 0.09 H Absolute Nucleated RBC 0.00 Immature Gran % 1 H Nucleated RBC % 0 PT 13.4 H INR 1.2 APTT 30.7 Puncture Site Left Brachial ABG pH 7.44 ABG pCO2 57 H ABG pO2 107 D ABG HCO3 38 H ABG O2 Saturation 99 H ABG Base Excess 12 H FiO2 60 Sodium 153 H Potassium 3.3 L Chloride 103 Carbon Dioxide 39.7 H Anion Gap 10 BUN 69 H Creatinine 2.3 H Estim Creat Clear Calc 54.3 L eGFR 31 L BUN/Creatinine Ratio 30 H Glucose 185 H Calculated Osmolality 328 H Calcium 8.8 Corrected Calcium 9.6 Phosphorus 3.1 Magnesium 1.9 Total Bilirubin 1.0 AST 22 ALT 19 Alkaline Phosphatase 103 B-Natriuretic Peptide Total Protein 5.8 Albumin 3.0 L Globulin 2.8 Albumin/Globulin Ratio 1.1 L ABG Interpretation ABG results: 02/27/25 02/28/25 03/01/25 06:55 04:57 04:39 ABG pH 7.27 L 7.37 D 7.41 ABG pCO2 57 H 48 44 ABG pO2 101 78 L D 69 L ABG HCO3 26 28 H 28 H ABG O2 Saturation 98 95 93 ABG Base Excess -2 2 3 VBG pH VBG pCO2 VBG pO2 VBG Base Excess 03/01/25 03/01/25 03/02/25 13:15 14:52 04:25 ABG pH Cancelled 7.41 7.45 ABG pCO2 Cancelled 45 42 ABG pO2 Cancelled 53 L* 66 L ABG HCO3 Cancelled 28 H 29 H ABG O2 Saturation Cancelled 85 L 92 ABG Base Excess Cancelled 3 5 H VBG pH VBG pCO2 VBG pO2 VBG Base Excess 03/03/25 03/05/25 03/05/25 04:40 16:30 16:55 ABG pH 7.45 Cancelled 7.34 L D ABG pCO2 43 Cancelled 72 H* D ABG pO2 72 L Cancelled 83 ABG HCO3 30 H Cancelled 38 H ABG O2 Saturation 94 Cancelled 95 ABG Base Excess 5 H Cancelled 9 H VBG pH VBG pCO2 VBG pO2 VBG Base Excess 03/05/25 03/06/25 03/06/25 23:36 01:48 05:22 ABG pH 7.37 7.34 L 7.52 H D ABG pCO2 67 H 74 H* 47 D ABG pO2 150 H D 88 D 160 H D ABG HCO3 38 H 40 H 38 H ABG O2 Saturation 99 H 96 100 H ABG Base Excess 10 H 11 H 13 H VBG pH VBG pCO2 VBG pO2 VBG Base Excess 03/06/25 03/07/25 03/07/25 17:10 05:00 14:03 ABG pH 7.46 H ABG pCO2 53 H ABG pO2 65 L D ABG HCO3 38 H ABG O2 Saturation 93 ABG Base Excess 12 H VBG pH 7.50 7.52 VBG pCO2 50 47 VBG pO2 70 H 61 H VBG Base Excess 13 H 14 H 03/09/25 03/09/25 03/09/25 08:17 10:25 17:29 ABG pH 7.25 L D 7.29 L 7.29 L ABG pCO2 93 H* D 85 H* 88 H* ABG pO2 81 L 57 L* D 85 D ABG HCO3 41 H 40 H 43 H ABG O2 Saturation 95 89 L 97 ABG Base Excess 10 H 10 H 12 H VBG pH VBG pCO2 VBG pO2 VBG Base Excess 03/09/25 03/10/25 03/10/25 23:24 07:17 11:25 ABG pH 7.32 L 7.28 L 7.31 L ABG pCO2 78 H* D 90 H* D 81 H* ABG pO2 69 L 47 L* D 63 L ABG HCO3 40 H 43 H 41 H ABG O2 Saturation 94 80 L 93 ABG Base Excess 11 H 12 H 11 H VBG pH VBG pCO2 VBG pO2 VBG Base Excess 03/10/25 03/11/25 03/12/25 16:56 04:19 04:42 ABG pH 7.40 7.48 H 7.43 ABG pCO2 66 H D 54 H D 59 H ABG pO2 68 L 67 L 77 L ABG HCO3 41 H 40 H 39 H ABG O2 Saturation 94 94 96 ABG Base Excess 13 H 15 H 12 H VBG pH VBG pCO2 VBG pO2 VBG Base Excess 03/13/25 03/14/25 03/15/25 04:32 04:25 04:37 ABG pH 7.47 H 7.46 H 7.41 ABG pCO2 53 H 50 H 56 H ABG pO2 60 L 70 L 69 L ABG HCO3 38 H 36 H 35 H ABG O2 Saturation 93 95 95 ABG Base Excess 13 H 10 H 9 H VBG pH VBG pCO2 VBG pO2 VBG Base Excess 03/16/25 03/16/25 03/17/25 04:54 09:53 04:35 ABG pH 7.45 7.48 H 7.47 H ABG pCO2 51 H 49 H 53 H ABG pO2 68 L 34 L* D 87 D ABG HCO3 35 H 37 H 38 H ABG O2 Saturation 95 67 L 97 ABG Base Excess 10 H 12 H 13 H VBG pH VBG pCO2 VBG pO2 VBG Base Excess 03/18/25 04:26 ABG pH 7.44 ABG pCO2 57 H ABG pO2 107 D ABG HCO3 38 H ABG O2 Saturation 99 H ABG Base Excess 12 H VBG pH VBG pCO2 VBG pO2 VBG Base Excess Quality Measures Quality Measures sepsis Current suspected stage: sepsis Possible source: pulmonary Blood cultures ordered: completed in ED Antibiotic ordered: Yes Advance care planning discussed with:: patient Assessment & Plan Assessment Current Active Medications: Generic Name Dose Route Start Last Admin Trade Name Freq PRN Reason Stop Dose Admin Acetaminophen 650 mg 03/10/25 19:17 Acetaminophen 325 Mg Tablet PO 03/29/25 09:23 Q4HR PRN fever > 100.4 Al Hydrox/Mg Hydrox/Simethicone 30 ml 02/27/25 09:24 Mg Hyd/Al Hyd/Virgilio (Maalox Reg) Susp 30 Ml Udc PO 03/29/25 09:23 Q4HR PRN Heartburn or Upset Stomach Amiodarone HCl 200 mg 03/01/25 09:00 03/18/25 09:12 Amiodarone Hcl 200 Mg Tablet PO 03/31/25 08:59 Not Given QDAY KOURTNEY Bumetanide 2 mg 03/17/25 21:00 03/18/25 09:16 Bumetanide Inj 0.25 Mg/Ml Vial 4 Ml IVP 04/16/25 20:59 2 mg BID KOURTNEY Administration Dextrose 25 ml 03/03/25 08:20 Dextrose 50%-Water Inj 50 Ml Syringe IV 04/02/25 08:19 Q15MIN PRN BG 50-70 responsive npo pt Dextrose 50 ml 03/03/25 08:20 Dextrose 50%-Water Inj 50 Ml Syringe IV 04/02/25 08:19 Q15MIN PRN BG <50 OR BG <70 & pt unresponsive Glucagon 1 mg 03/03/25 08:20 Glucagon Inj 1 Mg Vial IM Q15MIN PRN BG <70, and no IV access Heparin Sodium (Porcine) 7,500 unit 03/15/25 02:00 03/18/25 06:29 Heparin Sod Inj 5000 Unit/Ml Vial SC 03/29/25 01:59 Not Given Q8HR KOURTNEY Cefepime HCl 1 gm/ Sodium 50 mls @ 100 mls/hr 03/11/25 21:00 03/18/25 09:15 Chloride IV 03/18/25 20:59 100 mls/hr Q12HR KOURTNEY Administration Albumin Human 25 gm in 100 mls @ 100 mls/hr 03/16/25 09:00 03/18/25 09:15 Albuminar-25 Ivpb IV 03/19/25 08:59 100 mls/hr QDAY KOURTNEY Administration Insulin Human Lispro 0 unit 03/06/25 06:00 03/18/25 11:24 Insulin Lispro (Admelog) 1 Unit/0.01 Ml Unit SC 04/05/25 05:59 1 unit Q6H KOURTNEY Administration Protocol Magnesium Hydroxide 30 ml 02/27/25 09:24 Milk Of Magnesia Susp 30 Ml Udc PO 03/29/25 09:23 QDAY PRN CONSTIPATION Ondansetron HCl 4 mg 03/05/25 20:46 03/09/25 03:49 Ondansetron Inj 2 Mg/Ml Inj 2 Ml IV 04/04/25 20:45 4 mg Q6HR PRN Administration NAUSEA OR VOMITING Protocol Pantoprazole Sodium 40 mg 02/27/25 11:15 03/18/25 09:15 Pantoprazole Inj 40 Mg Vial IV 03/29/25 11:14 40 mg QDAY KOURTNEY Administration Rivaroxaban 20 mg 03/04/25 17:30 03/12/25 13:27 Rivaroxaban 10 Mg Tablet PO 04/03/25 17:29 Not Given WSUPPER KOURTNEY Plan 64-year-old male with significant past medical history of hypertension, diabetes mellitus, A-fib was admitted to the ICU on 02/27/2025 after coming in with altered mental status and shortness of breath, intubated for acute hypoxic respiratory failure and had suspected obesity hypoventilation syndrome/obstructive sleep apnea/pneumonia and acute kidney injury. He was extubated on 03/03 and downgraded then re-intubated on 03/06 due to confusion and tachypneia. He was then extubated and downgraded to the floor on 03/07. On 03/10, patient again had decreased mentation on the BiPAP so was reintubated and upgraded. Cardiology has been consulted for suspected heart failure. #Right congestive heart failure with preserved EF. #Severe BASIA/OHS. Echo on this admission showed poor quality images secondary to the patient's body habitus so was a technically limited study. Suspect chronic right heart failure in the setting of chronic obesity hypoventilation syndrome and obstructive sleep apnea. Currently appears to be more pulmonary component to respiratory failure than cardiac. Requiring ventilation support. Plan: -Continue with ventilatory support. -Monitor strict I&Os. -Limit sodium intake. -resume Bumex drip once electrolytes corrected. -Echo 02/27/25: IVC appears to be dilated and also estimated RVSP also appears to be at least moderately elevated at 55 mmHg. 03/14/25: Will hold dirutics for now , he was given IV fluids yesterday. 03/15/25 : [place] catheter was placed by ICU team which showed PA pressure of more than 30s and wedge pressure was also high . started him on bumex drip . will continue the albumin . he is getting his peg tube today 03/16/25: ICU team tried another [place] catheter today which showed RA pressure of 25, PA pressure of 38, PCWP of 23. Plan is to continue Bumex for him. Cr stable at 2.5 03/17/2025: Net fluid balance -3350 cc. ICU team held Bumex due to significant electrolyte abnormalities, potassium 2.7. Once repleted Bumex drip will be resumed. Continue current management and monitor patient. 03/18/2025: net fluid balance -1650 , he received 1 dose of diamox yesterday. will continue to diures, he is off ventillor in blowby with PRN ventillator when he gets tired. #Atrial fibrillation, rate controlled. Patient notes positive history of afib. He had previously been on metoprolol succinate 100 mg BID. Currently appears rate-controlled in the 100s. CHADS-VASc score 4 Plan: -Continue Metoprolol. -Resume Xarelto. -Continue amiodarone 200 mg qday. -Keep potassium >4.0 and mag >2.0. Rest of conditions to continue current management per primary team: #Acute hypoxic respiratory failure s/p tracheostomy. #Morbid obesity. #Community acquired pneumonia. #Elevated LFTs, resolved. #Hyperbilirubinemia, resolved. #History of type 2 diabetes. #Lactic acidosis, resolved. #KENIA on CKD. Discussed the patient with my attending Dr John. Shaina Newell [id number]
--- NOTE | 2025-03-18 16:16 | PC.RT ---
PER DR JUÁREZ PT IS TO BE PLACED ON BLOWBY DURING THE DAY TOLERATED AND AT NIGHT CAN GO BACK OF [facility].
--- NOTE | 2025-03-18 16:45 | ESPR_ITS ---
Documentation for date of: 03/18/25 Subjective Subjective Interval history: 64-year-old male with past medical history of DM2, hypertension, and A-fib was admitted to the ICU on 02/27/2025 after coming to the ED with complaints of altered mental status and shortness of breath. Patient was intubated in the ED therefore most of the history was taken from chart review and from the parents who are at bedside. Patient's parents stated that yesterday morning patient could not get up from his chair and then later that evening/night he started getting confused and was not making sense when he was seen. This morning EMS found the patient on the floor and he was saturating in the 70s even on high flow nasal cannula. Given his hypoxia patient was intubated in the ED. As per parents were at bedside they stated that prior to this patient was able to walk around, but that since yesterday morning he was unable to walk. On assessment patient was intubated, but was still able to answer yes or no questions. He was also able to follow commands. Patient spiked a fever while in the ED and he became hypotensive unresponsive to IV fluids therefore he was placed on vasopressors. 02/28/2025: Patient was seen examined at bedside this morning. Overnight patient did spike a fever of 100.4 and he had no measurable urine output. Patient placed on amio drip overnigth. He was also given Bumex 1 mg x 1 overnight to see if he had better urine output, but none was measured. Today's patient's chest x-ray this looks like it is improving and he did have wet pants and some urine in the pure wick catheter. Will start patient on Bumex drip at 1 mg and will monitor patient's daily weights. Patient was on very low-dose of Levophed therefore we will start patient on midodrine 10 mg every 6 hours and wean off Levophed entirely. Patient is nasogastric tube was not visualized had x-ray, but on auscultation air was audible in the stomach when hand was placed through the nasogastric tube. Will discontinue patient's vancomycin and Zosyn if his MRSA is negative and will transition to azithromycin and Rocephin. 03/01/2025: Patient seen and examined at bedside this morning. Overnight patient went into A-fib with RVR and he finishes bolus of amiodarone. Patient had a documented urine output of 150, but that she states 1 were very wet. His Bumex drip finished overnight and they were not able to start more Bumex drip as there was not available in the pharmacy overnight. Patient's weight did go down from 249 to 247 kg. Blood cultures have been negative in 48 hours and MRSA nares negative. Will discontinue vancomycin and Zosyn and will start azithromycin and Rocephin. Patient's ventilator requirements have been unchanged, but has been saturating in the 94% therefore we will try and wean down on oxygen requirements. His blood pressure has been stable off Levophed and only on midodrine. His kidney function has been worsening, but expect improvement with more diuresis. Started Amiodarone 200mg qday. 03/02/2025: No overnight events, todays weight 246, we will continue bumex drip. NIF today as -12, we will re-evaluate tomorrow to attempt extubation. Midodrine decreased to 5 q6hr 03/03/2025: Patient was seen examined at bedside this morning. No acute overnight events. Patient was taken off the Precedex yesterday night. Today's weight is 242 kg. Succesfull extubation today, will transition to bipap. 03/06/2025: Was notified by floors team that patient is tachypneic in the 40s with increased work of breathing, confusion, and agitation. He was AAOx 1 (name) and saying leave me alone. He continues to pull at his BIPAP and had to be restrained, with a sitter at bedside. His BIPAP settings were uptitrated from 10/5 to 16/6 without significant improvement of PCO2. Repeat ABG showed pH 7.37 with CO2 at 74. Floor team attempted to notify family with no answer. He remains confused and agitated. Patient to be intubated due to worsening respiratory effort. 03/06/2025: Patient was seen and examined at bedside this morning. He was sedated in the morning, but was weaned off. Patient was able to follow commands he understood and was able to at least answer yes and no questions. Patient was placed on spontaneous breathing trial, but his RSBI was in the 130s therefore patient was high risk to fail extubation at this time. Placed patient back on prior ventilator settings, will follow any sedation at this time as she is calm. Sedation will be placed if patient becomes agitated. Patient is diuresing well and his current weight today is 227 kilograms. Gave metolazone 10 mg x 1 today for additional diuresis and started tube feeds today. Will reattempt weaning parameters tomorrow for possible extubation. 03/07/2025: Patient seen and examined at bedside this morning. No overnight events. Patient's weight today was 226.4 kg. Patient's blood gas that showed a pH of 7.46, PCO2 of 53, and PO2 of 65 this most likely his baseline PCO2. Patient initially did not get his Bumex as it was discontinued the night prior, but today we will continue Bumex 1 mg twice daily. Chest x-ray that showed some more vascular congestion, but still on and physical exam was clear bilaterally. Patient passed spontaneous breathing trial and was extubated successfully today. At this time we will downgrade back to the medical floors. 03/10/2025: Patient was upgraded today at approximately 15:30 for intubation due to declining mentation on the BiPAP, despite remaining on BiPAP for majority of the last 24 hours. Patient was no longer able to answer questions and not following commands. Patient's decision-maker was contacted who consented for intubation. ABG in the morning had shown pH 7.31, pCO2 81, pO2 63, HCO3 41. Will start fentanyl and propofol. Will continue amiodarone PO dose through OG tube. If HR not rate controlled resume metoprolol XL as well. Will continue to hold the Bumex due to worsening KENIA and soft BPs. 03/11/2025: Patient seen and examined at bedside this morning. No acute overnight events. Patient is on sedation, will try and wean down sedation to assess his neurological status at this time. Patient's kidney function continue to worsen with creatinine going up to 2.2, but at this time chest x-ray showed a lot of congestion therefore we will restart Bumex 1 mg twice daily. ABG today shows some respiratory alkalosis with pH of 7.48, pCO2 of 54, and PO2 of 67. Patient has already been upgraded multiple times to the ICU requiring intubation during this hospital stay due to similar symptoms. Patient will most likely benefit from a tracheostomy at this point to overcome the anatomical issues causing him to become hypoxic and hypercapnic, will speak with patient's family and the patient himself once he is weaned off sedation.. Patient had no fevers and his WBCs are downtrending. 03/12/2025: Patient was seen and examined at bedside this morning. Overnight patient was a little bit agitated and biting on the tube therefore he was given a push of Versed. This morning will wean down sedation to possibly assess patient's neurological status and discussed the possibility of needing a tracheostomy with him. Chest x-ray does look a little bit better with less congestion today. GNR were stained in Sputum cultures. Patient's current weight is 220 kg. Will stop diuretics as patient kidney function is continuing to worsen. Will start free water flushes and give him some IV fluids today. Will speak about possible tracheostomy once he wakes up. I ws notified by patient's parent's that the patient is jehova's witness therefore would not want any blood products. 03/13/2025: Patient was seen and examined at bedside this morning. No acute overnight events. Patient's kidney function continues to worsen as his creatinine is 2.5 today, will give 1 L of IV fluids and will continue with free water flushes for now. Holding diuresis at this time. Patient did grow Enterobacter Cloacoe in the sputum which was sensitive to cefepime therefore we will continue with cefepime for now. Patient potassium was also low therefore gave 40 mEq x 1. Surgery plans for tracheostomy or Tuesday therefore holding Xarelto for now. Turned off all sedation and will reassess neurological status in the evening. 03/14/2025: No overnight events reported. Total urine output overnight 300 cc. No pyrexia reported. Precedex stopped at 7:35 AM. Scheduled trach at 12 PM. Patient examined at bedside. Patient continues to be mechanically ventilated on a PEEP of 8, FiO2 of 50 and tidal volume 420 thus nonverbal. Patient noted to have lower pedal edema. Patient's acute kidney injury unchanged from previous labs creatinine 2.5 and GFR of 28. Hypernatremia hyperosmolar. Morning ABG showing metabolic alkalosis with improved pCO2 of 50 and bicarb of 36. Patient is currently n.p.o. and scheduled for trach at 12 PM today. Restart heparin 6 hours after procedure. 03/15/2025: No overnight events. Afebrile overnight. Minimal urine output of 200 cc. Patient continues to remain off precedex. Tracheostomy, mechanically ventilated VT 420, PEEP 8, and flow 40/FiO2 of 60. Patient is alert and cooperative. Atrial fibrillation still present, on Amiodarone and Metoprolol Tartrate. Bumex drip 1 mg/hr plus daily albumin. Nephrology consulted given poor kidney function, renal us, urinalysis, uric acid, and albumin-Cr ration, and total urine. Patient scheduled for PEG tube tomorrow, please discontinue heparin drip tomorrow morning. 03/16/2025: Patient agitated overnight and was given lorazepam and olanzapine. He had UOP 1600 overnight. Swanz catheter was floated this morning: RAP 25 PAP 38 PCWP 23, all high pressures. PAWO2 obtained was 67%. Using Kenneth's formula, the cardiac output is 8.3 L/min, caridac index 2.7, and stroke volume 83. Given his high cardiac output and elevated RA pressures, will start bumex ggt. The patient is also hypernatremic at 150 with a free water deficit of 4L for a goal Na of 145. We will start free water flushes at 250cc/hr. Plan for PEG tube placement this afternoon. 03/18/2025: Overnight patient was agitated, Ativan and Quetiapine given x1. Urine output 4400 and negative net balance 3301. Weight 204. Patient continues to be mechanically ventilated on a PEEP of 8, VT 420 and FiO2 of 60. NG tube in the right nostral. Potassium repleted and following potassium. CVP 9 (=17-8). Bumex drip-stopped----> to Bumex 2 mg twice daily started. Plan for J-tube in tomorrow and PICC line. D/C central line. NPO after midnight. PT/PTT AM draws. Hold heparin after midnight.Feed tubes restarted. 03/18/2025: No overnight events. Patient examined this morning and is alert and following commands. Net balance of -1600. 1 bowel movement recorded overnight. Pateint was unable to obtain PICC this evening. Rescheduled for tomorrow. Resumed Heparin. Please hold heparin overnight. Dr. Banda unable to perform Jtube. General surgery consulted for J tube, will follow up tomorrow. Will hold off on NG tube-pateint may benefit from PPN. Metroprolol and Amiodarone both holding off as no NG tube. Consider Amiodarone IV if Afib w/ rvr develops. Exam Vital Signs Temp Pulse Resp BP Pulse Ox O2 Del Method O2 Flow Rate 97.4 F 107 H 10 L 139/81 H 92 L Mechanical Ventilation 10 03/18/25 12:00 03/18/25 15:46 03/18/25 15:46 03/18/25 12:00 03/18/25 15:46 03/18/25 12:00 03/18/25 15:46 FiO2 40 03/18/25 15:46 Narrative Exam General Appearance: Alert & Oriented X0, obese male who is lying in bed in no acute distress, mechanically ventilated with tracheostomy. HEENT: Skull symmetrical and atraumatic. Conjunctivae pale pink and moist. Pupils equal, round, reactive to light and accommodation (PERRL). External ear without lesion or discharge. Cardio: Normal Rate and Rhythm with S1 and S2 heart sounds. No murmurs or extra heart sounds auscultated. No bruits on carotid auscultation. Lower pedal edema. Lungs: Symmetric expansion. Breath sounds vesicular but with upper airway sounds from ventilation. No crackles, wheezing or rhonchi Abdomen: Non-tender, Non-distended, Normal Reactive Bowel Sounds Neuro: YES Alert, YES cooperative, No oriented to person, No place, and NO time. Non verbal, secondary to tracheostomy. Upper motor strength 4/5 and lower motor strength 1/5. Objective Labs 03/21/25 05:50 03/21/25 05:50 Labs: Laboratory Results - last 24 hr 03/18/25 03/18/25 03/18/25 00:35 04:26 05:30 WBC 9.3 RBC 4.14 L Hgb 11.8 L Hct 37.3 L MCV 90 MCH 28.5 MCHC 31.6 RDW Std Deviation 46.7 H Plt Count 275 D Neut % (Auto) 73 Lymph % (Auto) 9 L [place] % (Auto) 13 H Eos % (Auto) 3 Baso % (Auto) 1 Neut # (Auto) 6.8 Lymph # (Auto) 0.9 L [place] # (Auto) 1.2 H Eos # (Auto) 0.3 Baso # (Auto) 0.1 Immature Gran # (Auto) 0.09 H Absolute Nucleated RBC 0.00 Immature Gran % 1 H Nucleated RBC % 0 PT 13.4 H INR 1.2 APTT 30.7 Puncture Site Left Brachial ABG pH 7.44 ABG pCO2 57 H ABG pO2 107 D ABG HCO3 38 H ABG O2 Saturation 99 H ABG Base Excess 12 H FiO2 60 Sodium 151 H 153 H Potassium 3.4 3.3 L Chloride 103 103 Carbon Dioxide 36.9 H 39.7 H Anion Gap 11 10 BUN 66 H 69 H Creatinine 2.3 H 2.3 H Estim Creat Clear Calc 54.3 L 54.3 L eGFR 31 L 31 L BUN/Creatinine Ratio 29 H 30 H Glucose 182 H 185 H Calculated Osmolality 323 H 328 H Calcium 8.8 8.8 Corrected Calcium 9.4 9.6 Phosphorus 3.1 3.1 Magnesium 1.9 Total Bilirubin 1.0 AST 22 ALT 19 Alkaline Phosphatase 103 Total Protein 5.8 Albumin 3.2 L 3.0 L Globulin 2.8 Albumin/Globulin Ratio 1.1 L ABG Interpretation ABG results: 02/27/25 02/28/25 03/01/25 06:55 04:57 04:39 ABG pH 7.27 L 7.37 D 7.41 ABG pCO2 57 H 48 44 ABG pO2 101 78 L D 69 L ABG HCO3 26 28 H 28 H ABG O2 Saturation 98 95 93 ABG Base Excess -2 2 3 VBG pH VBG pCO2 VBG pO2 VBG Base Excess 03/01/25 03/01/25 03/02/25 13:15 14:52 04:25 ABG pH Cancelled 7.41 7.45 ABG pCO2 Cancelled 45 42 ABG pO2 Cancelled 53 L* 66 L ABG HCO3 Cancelled 28 H 29 H ABG O2 Saturation Cancelled 85 L 92 ABG Base Excess Cancelled 3 5 H VBG pH VBG pCO2 VBG pO2 VBG Base Excess 03/03/25 03/05/25 03/05/25 04:40 16:30 16:55 ABG pH 7.45 Cancelled 7.34 L D ABG pCO2 43 Cancelled 72 H* D ABG pO2 72 L Cancelled 83 ABG HCO3 30 H Cancelled 38 H ABG O2 Saturation 94 Cancelled 95 ABG Base Excess 5 H Cancelled 9 H VBG pH VBG pCO2 VBG pO2 VBG Base Excess 03/05/25 03/06/25 03/06/25 23:36 01:48 05:22 ABG pH 7.37 7.34 L 7.52 H D ABG pCO2 67 H 74 H* 47 D ABG pO2 150 H D 88 D 160 H D ABG HCO3 38 H 40 H 38 H ABG O2 Saturation 99 H 96 100 H ABG Base Excess 10 H 11 H 13 H VBG pH VBG pCO2 VBG pO2 VBG Base Excess 03/06/25 03/07/25 03/07/25 17:10 05:00 14:03 ABG pH 7.46 H ABG pCO2 53 H ABG pO2 65 L D ABG HCO3 38 H ABG O2 Saturation 93 ABG Base Excess 12 H VBG pH 7.50 7.52 VBG pCO2 50 47 VBG pO2 70 H 61 H VBG Base Excess 13 H 14 H 03/09/25 03/09/25 03/09/25 08:17 10:25 17:29 ABG pH 7.25 L D 7.29 L 7.29 L ABG pCO2 93 H* D 85 H* 88 H* ABG pO2 81 L 57 L* D 85 D ABG HCO3 41 H 40 H 43 H ABG O2 Saturation 95 89 L 97 ABG Base Excess 10 H 10 H 12 H VBG pH VBG pCO2 VBG pO2 VBG Base Excess 03/09/25 03/10/25 03/10/25 23:24 07:17 11:25 ABG pH 7.32 L 7.28 L 7.31 L ABG pCO2 78 H* D 90 H* D 81 H* ABG pO2 69 L 47 L* D 63 L ABG HCO3 40 H 43 H 41 H ABG O2 Saturation 94 80 L 93 ABG Base Excess 11 H 12 H 11 H VBG pH VBG pCO2 VBG pO2 VBG Base Excess 03/10/25 03/11/25 03/12/25 16:56 04:19 04:42 ABG pH 7.40 7.48 H 7.43 ABG pCO2 66 H D 54 H D 59 H ABG pO2 68 L 67 L 77 L ABG HCO3 41 H 40 H 39 H ABG O2 Saturation 94 94 96 ABG Base Excess 13 H 15 H 12 H VBG pH VBG pCO2 VBG pO2 VBG Base Excess 03/13/25 03/14/25 03/15/25 04:32 04:25 04:37 ABG pH 7.47 H 7.46 H 7.41 ABG pCO2 53 H 50 H 56 H ABG pO2 60 L 70 L 69 L ABG HCO3 38 H 36 H 35 H ABG O2 Saturation 93 95 95 ABG Base Excess 13 H 10 H 9 H VBG pH VBG pCO2 VBG pO2 VBG Base Excess 03/16/25 03/16/25 03/17/25 04:54 09:53 04:35 ABG pH 7.45 7.48 H 7.47 H ABG pCO2 51 H 49 H 53 H ABG pO2 68 L 34 L* D 87 D ABG HCO3 35 H 37 H 38 H ABG O2 Saturation 95 67 L 97 ABG Base Excess 10 H 12 H 13 H VBG pH VBG pCO2 VBG pO2 VBG Base Excess 03/18/25 04:26 ABG pH 7.44 ABG pCO2 57 H ABG pO2 107 D ABG HCO3 38 H ABG O2 Saturation 99 H ABG Base Excess 12 H VBG pH VBG pCO2 VBG pO2 VBG Base Excess Quality Measures Quality Measures sepsis Current suspected stage: ruled out Possible source: pulmonary Blood cultures ordered: completed in ED Antibiotic ordered: Yes Advance care planning discussed with:: patient Assessment & Plan Assessment Current Active Medications: Generic Name Dose Route Start Last Admin Trade Name Freq PRN Reason Stop Dose Admin Acetaminophen 650 mg 03/10/25 19:17 Acetaminophen 325 Mg Tablet PO 03/29/25 09:23 Q4HR PRN fever > 100.4 Al Hydrox/Mg Hydrox/Simethicone 30 ml 02/27/25 09:24 Mg Hyd/Al Hyd/Virgilio (Maalox Reg) Susp 30 Ml Udc PO 03/29/25 09:23 Q4HR PRN Heartburn or Upset Stomach Amiodarone HCl 200 mg 03/01/25 09:00 03/18/25 09:12 Amiodarone Hcl 200 Mg Tablet PO 03/31/25 08:59 Not Given QDAY KOURTNEY Bumetanide 2 mg 03/17/25 21:00 03/18/25 09:16 Bumetanide Inj 0.25 Mg/Ml Vial 4 Ml IVP 04/16/25 20:59 2 mg BID KOURTNEY Administration Dextrose 25 ml 03/03/25 08:20 Dextrose 50%-Water Inj 50 Ml Syringe IV 04/02/25 08:19 Q15MIN PRN BG 50-70 responsive npo pt Dextrose 50 ml 03/03/25 08:20 Dextrose 50%-Water Inj 50 Ml Syringe IV 04/02/25 08:19 Q15MIN PRN BG <50 OR BG <70 & pt unresponsive Glucagon 1 mg 03/03/25 08:20 Glucagon Inj 1 Mg Vial IM Q15MIN PRN BG <70, and no IV access Heparin Sodium (Porcine) 7,500 unit 03/15/25 02:00 03/18/25 06:29 Heparin Sod Inj 5000 Unit/Ml Vial SC 03/29/25 01:59 Not Given Q8HR KOURTNEY Cefepime HCl 1 gm/ Sodium 50 mls @ 100 mls/hr 03/11/25 21:00 03/18/25 09:15 Chloride IV 03/18/25 20:59 100 mls/hr Q12HR KOURTNEY Administration Albumin Human 25 gm in 100 mls @ 100 mls/hr 03/16/25 09:00 03/18/25 09:15 Albuminar-25 Ivpb IV 03/19/25 08:59 100 mls/hr QDAY KOURTNEY Administration Acetazolamide Sodium 500 mg/ 50 mls @ 100 mls/hr 03/18/25 16:40 Sodium Chloride IV 03/18/25 17:09 X1 ONE Insulin Human Lispro 0 unit 03/06/25 06:00 03/18/25 11:24 Insulin Lispro (Admelog) 1 Unit/0.01 Ml Unit SC 04/05/25 05:59 1 unit Q6H KOURTNEY Administration Protocol Magnesium Hydroxide 30 ml 02/27/25 09:24 Milk Of Magnesia Susp 30 Ml Udc PO 03/29/25 09:23 QDAY PRN CONSTIPATION Ondansetron HCl 4 mg 03/05/25 20:46 03/09/25 03:49 Ondansetron Inj 2 Mg/Ml Inj 2 Ml IV 04/04/25 20:45 4 mg Q6HR PRN Administration NAUSEA OR VOMITING Protocol Pantoprazole Sodium 40 mg 02/27/25 11:15 03/18/25 09:15 Pantoprazole Inj 40 Mg Vial IV 03/29/25 11:14 40 mg QDAY KOURTNEY Administration Rivaroxaban 20 mg 03/04/25 17:30 03/12/25 13:27 Rivaroxaban 10 Mg Tablet PO 04/03/25 17:29 Not Given WSUPPER KOURTNEY Plan 64-year-old male with past medical history of DM2, hypertension, A-fib, and Jehova's witness was admitted to the ICU on 02/27/2025 for shock and acute hypoxic respiratory failure. 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 CVS: #Right diastolic CHF Echo could not visualize all chambers with limited ability to determine patient's ejection fraction. Given body habitus, history of obstructive sleep apnea and obesity hypoventilation syndrome, right heart failure suspected. Lower pedal edema likely combination of heart failure and third spacing. Swanz Mary 03/15 showed elevated RAP 25 PAP 38 PCWP 23. [place] Mary 03/16/2025 PCWP 9 (=17-8) High cardiac output - Bumex 2 mg BID - Albumin - Daily weights - Strict I&O #Hx of A-fib [id number] score of 3 points indicating 3.2% risk of stroke per year Has bled score of 0 - Continue PO amiodarone 200 mg qday & metoprolol Tartrate 100 mg BID, on hold given NG tube placement failure. If afib rvr consider Amiodarone. - Holding xarelto due to upcoming procedure, Heparin on board. Please hold heparin aftermidnight for PICC line on 03/18/2025. Respiratory: #Acute on chronic hypoxic and hypercapnic respiratory failure #Obesity hypoventilation syndrome and obstructive sleep apnea #Community-acquired pneumonia, Enterobacter Cloacoe Patient was intubated on 02/27/2025, extubated 03/03/2025. Reintubated on 03/06/2025 and extubated 03/07/2025. Reintubated 03/10/2025 for hypercapnic encephalopathy Tracheostomy tube placed 03/15 - Continue vent, wean as tolerated - Antibiotics, see ID section below Renal: #KENIA Pre-renal from cardiorenal and edema in the setting of third spacing, low albumin. Bumex drip stopped. - Diuresis, Bumex 2 mg BID - Albumin - Nephrology following #Hypernatremia, Hyper-osmolar Free water deficit 4.2 L for goal Na 145 - Free water flushes 250cc every 6 hours, on hold as NG tube placement failed. #Metabolic Alkalosis Metabolic Alkalosis with ABG of 7.47 in the setting of contraction alkalosis from diuretics and likely underlying compensation for OHA as ideal bicarb would be 28. Considered Acetazolamide AM. Plan Bumex drip to 2 mg BID. Acetazolamide X 1 #Electrolytes Abnormalities potassium repeated likely secondary to Bumex drip. Renal Function follow up. 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 NG tube feedings restarted. -plan for Jtube placement by IR tomorrow -PT/PTT panel AM -Remains NPO Endo: #Morbid obesity Patient has a BMI of 79.5 #DM2 A1C 7.6 on 03/05/2025 - ISS - Hypoglycemia protocol ordered Heme: #Normocytic Anemia likely secondary to anemia of chronic disease given normal MCV. No acute intervention, continue to monitor #Leukocytosis, resolved. ID: #Enterobacter cloacoe pneumonia Finished Rocephin (03/06/2025) - Continue cefepime 03/18/2025, completed Hospital Maintenance: Diet: Resume NG tube feeding, NPO after midnight. DVT ppx: heparin, hold heparin after midnight for PICC line on Tuesday GI ppx: protonix IV lines: PIV, Central line-->plan for PICC line on Tuesday Fuller: none Code status: Full code Dispo: ICU for acute on chronic hypoxic and hypercapnic respiratory failure. - The patient's plan was discussed with attending Dr. Kalpesh Esquivel MD PGY1 Internal Medicine Attending Provider Attestation/Addendum Patient seen and examined with the resident, Mery Esquivel MD. I agree with the findings, assessment, and plan of care as documented except for any differences below. Patient continues to improve with ongoing diuresis. Will plan for repeat pulmonary artery catheterization. Will d/c central line today. Aggressive replacement of electrolytes. Plan for transition to BID dosing of bumex per nephrology. Bumex given for continue diuresis in HCO3 as well to combat contraction alkalosis suppressing respiratory drive. Patient's renal function stable, likley chronic component secondary to cardiorenal syndrome. Patient with lack of long-term enteral acccess. Working with surgical and IR expertise to find potential solutions. Would avoid parenteral nutrition du eto large volume requirements and increased risk of infection. Patient doing well with ventilator weaning and will aim for potential blow-by on trach during the day with rest overnight on ventilatory support. Patient and family updated at bedside now that mentation improved. Delerium prevention with avoidance of medications when able. Total critical care time: Personally spent 35 minutes for review of physiologic parameters, directing plan of care throughout the day, coordination of care with other specialists, and counseling patient and family at bedside. This is exclusive of time spent teaching of staff or performing any separate billable procedures. Patient continues to require critical care services for acute on chronic hypoxic respiratory failure and decompensated right heart failure with likely diastolic left heart failure. Patient remains at significant risk for further morbidity and mortality warranting close monitoring and care only available in the intensive care unit.
[2025-03-18] MEDS: ACETAzolaMIDE SOD 500 MG in SODIUM CHLORIDE 0.9% (Popper) 50 ML 100 MG IV (17:47)
[2025-03-18 17:59] LABS: Albumin, Serum 3.2 gm/dL (3.4-4.8); Anion Gap 10 (7-16); BUN/Creatinine Ratio 28 Ratio (12-20); Blood Urea Nitrogen 67 mg/dL (9-23); Calcium 8.8 mg/dL (8.3-10.6); Calcium (Corrected) 9.4 mg/dL (8.5-10.1); Chloride 104 mMol/L (98-107); Creatinine (Component) 2.4 mg/dL (0.6-1.3); Estimated Creatinine Clearance 51.6 mL/min (>60); Glucose 188 mg/dL (74-106); Osmolality,Calculated 320 (275-295); Phosphorous 2.8 mg/dL (2.4-5.1); Potassium 4.1 mMol/L (3.4-5.1); Sodium 149 mMol/L (136-145); eGFR 29 See Note
--- NOTE | 2025-03-18 21:02 | PD.IMPROG ---
Documentation for date of: 03/18/25 Subjective Subjective Interval history: There is an issue with the NGT as patient has a very small gastric polyp The tube was not going to go more than 40 to 50 cm Interestingly he needs IR guided jejunostomy tube for feeding Exam Vital Signs Temp Pulse Resp BP Pulse Ox O2 Del Method O2 Flow Rate 98.3 F 93 30 H 116/84 95 Mechanical Ventilation 10 03/18/25 16:01 03/18/25 20:01 03/18/25 20:01 03/18/25 20:01 03/18/25 20:01 03/18/25 16:01 03/18/25 15:46 FiO2 40 03/18/25 20:01 Objective Labs 03/18/25 05:30 03/18/25 17:18 Labs: Laboratory Results - last 24 hr 03/18/25 03/18/25 03/18/25 00:35 04:26 05:30 WBC 9.3 RBC 4.14 L Hgb 11.8 L Hct 37.3 L MCV 90 MCH 28.5 MCHC 31.6 RDW Std Deviation 46.7 H Plt Count 275 D Neut % (Auto) 73 Lymph % (Auto) 9 L [place] % (Auto) 13 H Eos % (Auto) 3 Baso % (Auto) 1 Neut # (Auto) 6.8 Lymph # (Auto) 0.9 L [place] # (Auto) 1.2 H Eos # (Auto) 0.3 Baso # (Auto) 0.1 Immature Gran # (Auto) 0.09 H Absolute Nucleated RBC 0.00 Immature Gran % 1 H Nucleated RBC % 0 PT 13.4 H INR 1.2 APTT 30.7 Puncture Site Left Brachial ABG pH 7.44 ABG pCO2 57 H ABG pO2 107 D ABG HCO3 38 H ABG O2 Saturation 99 H ABG Base Excess 12 H FiO2 60 Sodium 151 H 153 H Potassium 3.4 3.3 L Chloride 103 103 Carbon Dioxide 36.9 H 39.7 H Anion Gap 11 10 BUN 66 H 69 H Creatinine 2.3 H 2.3 H Estim Creat Clear Calc 54.3 L 54.3 L eGFR 31 L 31 L BUN/Creatinine Ratio 29 H 30 H Glucose 182 H 185 H Calculated Osmolality 323 H 328 H Calcium 8.8 8.8 Corrected Calcium 9.4 9.6 Phosphorus 3.1 3.1 Magnesium 1.9 Total Bilirubin 1.0 AST 22 ALT 19 Alkaline Phosphatase 103 Total Protein 5.8 Albumin 3.2 L 3.0 L Globulin 2.8 Albumin/Globulin Ratio 1.1 L 03/18/25 17:18 WBC RBC Hgb Hct MCV MCH MCHC RDW Std Deviation Plt Count Neut % (Auto) Lymph % (Auto) [place] % (Auto) Eos % (Auto) Baso % (Auto) Neut # (Auto) Lymph # (Auto) [place] # (Auto) Eos # (Auto) Baso # (Auto) Immature Gran # (Auto) Absolute Nucleated RBC Immature Gran % Nucleated RBC % PT INR APTT Puncture Site ABG pH ABG pCO2 ABG pO2 ABG HCO3 ABG O2 Saturation ABG Base Excess FiO2 Sodium 149 H Potassium 4.1 D Chloride 104 Carbon Dioxide 35.0 H Anion Gap 10 BUN 67 H Creatinine 2.4 H Estim Creat Clear Calc 51.6 L eGFR 29 L BUN/Creatinine Ratio 28 H Glucose 188 H Calculated Osmolality 320 H Calcium 8.8 Corrected Calcium 9.4 Phosphorus 2.8 Magnesium Total Bilirubin AST ALT Alkaline Phosphatase Total Protein Albumin 3.2 L Globulin Albumin/Globulin Ratio Impressions Impression: # Failure to thrive Recommend IR guided placement of a jejunostomy tube ABG Interpretation ABG results: 02/27/25 02/28/25 03/01/25 06:55 04:57 04:39 ABG pH 7.27 L 7.37 D 7.41 ABG pCO2 57 H 48 44 ABG pO2 101 78 L D 69 L ABG HCO3 26 28 H 28 H ABG O2 Saturation 98 95 93 ABG Base Excess -2 2 3 VBG pH VBG pCO2 VBG pO2 VBG Base Excess 03/01/25 03/01/25 03/02/25 13:15 14:52 04:25 ABG pH Cancelled 7.41 7.45 ABG pCO2 Cancelled 45 42 ABG pO2 Cancelled 53 L* 66 L ABG HCO3 Cancelled 28 H 29 H ABG O2 Saturation Cancelled 85 L 92 ABG Base Excess Cancelled 3 5 H VBG pH VBG pCO2 VBG pO2 VBG Base Excess 03/03/25 03/05/25 03/05/25 04:40 16:30 16:55 ABG pH 7.45 Cancelled 7.34 L D ABG pCO2 43 Cancelled 72 H* D ABG pO2 72 L Cancelled 83 ABG HCO3 30 H Cancelled 38 H ABG O2 Saturation 94 Cancelled 95 ABG Base Excess 5 H Cancelled 9 H VBG pH VBG pCO2 VBG pO2 VBG Base Excess 03/05/25 03/06/25 03/06/25 23:36 01:48 05:22 ABG pH 7.37 7.34 L 7.52 H D ABG pCO2 67 H 74 H* 47 D ABG pO2 150 H D 88 D 160 H D ABG HCO3 38 H 40 H 38 H ABG O2 Saturation 99 H 96 100 H ABG Base Excess 10 H 11 H 13 H VBG pH VBG pCO2 VBG pO2 VBG Base Excess 03/06/25 03/07/25 03/07/25 17:10 05:00 14:03 ABG pH 7.46 H ABG pCO2 53 H ABG pO2 65 L D ABG HCO3 38 H ABG O2 Saturation 93 ABG Base Excess 12 H VBG pH 7.50 7.52 VBG pCO2 50 47 VBG pO2 70 H 61 H VBG Base Excess 13 H 14 H 03/09/25 03/09/25 03/09/25 08:17 10:25 17:29 ABG pH 7.25 L D 7.29 L 7.29 L ABG pCO2 93 H* D 85 H* 88 H* ABG pO2 81 L 57 L* D 85 D ABG HCO3 41 H 40 H 43 H ABG O2 Saturation 95 89 L 97 ABG Base Excess 10 H 10 H 12 H VBG pH VBG pCO2 VBG pO2 VBG Base Excess 03/09/25 03/10/25 03/10/25 23:24 07:17 11:25 ABG pH 7.32 L 7.28 L 7.31 L ABG pCO2 78 H* D 90 H* D 81 H* ABG pO2 69 L 47 L* D 63 L ABG HCO3 40 H 43 H 41 H ABG O2 Saturation 94 80 L 93 ABG Base Excess 11 H 12 H 11 H VBG pH VBG pCO2 VBG pO2 VBG Base Excess 03/10/25 03/11/25 03/12/25 16:56 04:19 04:42 ABG pH 7.40 7.48 H 7.43 ABG pCO2 66 H D 54 H D 59 H ABG pO2 68 L 67 L 77 L ABG HCO3 41 H 40 H 39 H ABG O2 Saturation 94 94 96 ABG Base Excess 13 H 15 H 12 H VBG pH VBG pCO2 VBG pO2 VBG Base Excess 03/13/25 03/14/25 03/15/25 04:32 04:25 04:37 ABG pH 7.47 H 7.46 H 7.41 ABG pCO2 53 H 50 H 56 H ABG pO2 60 L 70 L 69 L ABG HCO3 38 H 36 H 35 H ABG O2 Saturation 93 95 95 ABG Base Excess 13 H 10 H 9 H VBG pH VBG pCO2 VBG pO2 VBG Base Excess 03/16/25 03/16/25 03/17/25 04:54 09:53 04:35 ABG pH 7.45 7.48 H 7.47 H ABG pCO2 51 H 49 H 53 H ABG pO2 68 L 34 L* D 87 D ABG HCO3 35 H 37 H 38 H ABG O2 Saturation 95 67 L 97 ABG Base Excess 10 H 12 H 13 H VBG pH VBG pCO2 VBG pO2 VBG Base Excess 03/18/25 04:26 ABG pH 7.44 ABG pCO2 57 H ABG pO2 107 D ABG HCO3 38 H ABG O2 Saturation 99 H ABG Base Excess 12 H VBG pH VBG pCO2 VBG pO2 VBG Base Excess Assessment & Plan A&P Narrative # Evaluation for placement of a PEG tube I have tentatively schedule the patient for tomorrow afternoon It is going to be a technical challenge as patient is morbidly obese and there may not be a long enough catheter to intubate the cavity of the stomach Nonetheless it should be given for endoscopic placement of the PEG tube Other medical problems include Acute hypoxic respiratory failure requiring initially endotracheal intubation now tracheostomy and mechanical ventilation Chronic atrial fibrillation Diabetes mellitus type 2 Essential hypertension Thank you very much for the opportunity to participate in the care of this patient Time Spent With Patient Time: Total time spent is greater than 50% in coordination of care (as documented) at patient's floor/unit and/or counseling patient:
[2025-03-18] MEDS: HEPARIN SOD INJ 5000 UNIT/ML VIAL 7500 UNIT SC (21:27)
[2025-03-19] VITALS (26 sets, daily range): BP systolic 110–144; BP diastolic 67–101; PULSE 100–135; RESP 2–44; TEMP 35.5–36.9; O2SAT 86–99
[2025-03-19 05:14] LABS: Base Excess 12 (-3-3); HCO3 38 mEq/L (20-26); Inspired Oxygen, FIO2 40 %; O2 Saturation 96 % (91-98); PCO2 55 mmHg (32.0-48.0); PO2 73 mmHg (83-108); pH, Arterial 7.45 (7.35-7.45)
[2025-03-19 05:16] LABS: Allen Test Performed/OK; Puncture Site Right Radial
[2025-03-19 06:21] LABS: Basophils # (Auto) 0.1 Thou/mm3 (0.0-0.2); Basophils % (Auto) 1 % (0-2.5); Eosinophils # (Auto) 0.2 Thou/mm3 (0.0-0.5); Eosinophils % (Auto) 2 % (0-10); Hematocrit 38.3 % (41.0-53.0); Hemoglobin 11.8 g/dL (13.5-16.0); Immature Granulocytes % (Auto) 1 % (0-0); Immature Granulocytes Auto 0.12 Thou/mm3 (0.00-0.00); Lymphocytes # (Auto) 0.9 Thou/mm3 (1.0-4.8); Lymphocytes % (Auto) 8 % (10-50); Mean Corpuscular HGB Conc 30.8 g/dl (31.0-37.0); Mean Corpuscular Hemoglobin 28.6 pg (25.0-35.0); Mean Corpuscular Volume 93 fL (80-100); Monocytes # (Auto) 1.4 Thou/mm3 (0.0-0.8); Monocytes % (Auto) 14 % (0-12); Neutrophils # (Auto) 7.8 Thou/mm3 (1.8-7.7); Neutrophils % (Auto) 74 % (37-80); Nucleated Red Blood Cell % 0 /100 WBC (0); Platelet Count 306 Thou/mm3 (140-440); RDW Standard Deviation 48.2 fL (35.1-43.9); Red Blood Count 4.12 Miln/mm3 (4.50-5.90); White Blood Count 10.5 Thou/mm3 (3.8-10.6)
[2025-03-19 06:27] LABS: INR 1.3 (0.9-1.3); Partial Thromboplastin Time 30.5 Seconds (22.0-36.0); Prothrombin Time 13.8 Seconds (9.0-12.2)
[2025-03-19 06:32] LABS: Alanine Aminotransferase 19 U/L (10-49); Albumin, Serum 3.1 gm/dL (3.4-4.8); Albumin/Globulin Ratio 1.1 (1.2-2.2); Alkaline Phosphatase 106 U/L (46-116); Anion Gap 12 (7-16); Aspartate Amino Transferase 30 U/L (0-34); BUN/Creatinine Ratio 28 Ratio (12-20); Bilirubin,Total 1.1 mg/dL (0.3-1.2); Blood Urea Nitrogen 70 mg/dL (9-23); Calcium 8.8 mg/dL (8.3-10.6); Calcium (Corrected) 9.5 mg/dL (8.5-10.1); Carbon Dioxide 37.5 mMol/L (20.0-31.0); Chloride 104 mMol/L (98-107); Creatinine (Component) 2.5 mg/dL (0.6-1.3); Estimated Creatinine Clearance 49.5 mL/min (>60); Globulin 2.8 gm/dL (2.3-3.5); Glucose 183 mg/dL (74-106); Osmolality,Calculated 329 (275-295); Potassium 3.4 mMol/L (3.4-5.1); Sodium 153 mMol/L (136-145); Total Protein 5.9 gm/dL (5.7-8.2); eGFR 28 See Note
[2025-03-19 07:03] LABS: B-Type Natriuretic Peptide 135 pg/mL (0-100)
[2025-03-19] MEDS: PANTOPRAZOLE INJ 40 MG VIAL IV (08:26)
[2025-03-19] MEDS: POTASSIUM CHL 20 mEq IVPB 20 MEQ/100 ML BAG 50 MEQ IV (08:28)
[2025-03-19 09:00] LABS: Magnesium 1.9 mg/dL (1.6-2.6)
--- NOTE | 2025-03-19 09:02 | ESPR_ITS ---
Documentation for date of: 03/19/25 Subjective Subjective Interval history: Mr. Ortega is a 64-year-old male with past medical history of DM2, hypertension, and A-fib Morbid obesity by BMIwas admitted to the ICU on 02/27/2025 after coming to the ED with complaints of altered mental status and shortness of breath. Patient was intubated in the ED therefore most of the history was taken from chart review and from the parents who are at bedside. EMS found the patient on the floor and he was saturating in the 70s even on high flow nasal cannula. Given his hypoxia patient was intubated in the ED. Patient spiked a fever while in the ED and he became hypotensive unresponsive to IV fluids therefore he was placed on vasopressors. During course of hospitalization patient had decreasing kidney function, patient notably edematous and has vascular congestion on x-ray, therefore was treated with Bumex. Despite diuresis therapy, patient kidney function continued to worsen, diuresis positive patient given free water flushes. Patient has had notably low albumin, ICU team recently started patient on albumin but not at the same time as diuretics. Nephrology was consulted due to worsening kidney function. Tracheostomy placed yesterday. Labs today show WBC 12.5, hemoglobin 12.1, platelets 346. Sodium 149, potassium 3.6, chloride 104, bicarb 33.5. BUN 76, creatinine 2.7, EGFR 25. Hemoglobin A1c 7.6%. 03/16/2025: Patient seen and examined at bedside. Patient had 0.5 L in, 1.8 L urinary output, length of stay net -1.6 L. UA showed trace protein and blood, 2+ bacteria, 3+ uric acid crystals, 99 total protein, 104 creatinine. Catheter showed elevated wedge pressure suspect right heart failure due to chronic pulmonary hypertension related to patient's weight. Sodium increased to 150, free water deficits 4.5 L. Bicarb 34.7, BUN 73, creatinine 2.5, EGFR 28. However improved to 3.3, uric acid 9.0. Renal ultrasound was taken, however was unable to visualize kidneys. Will continue to diurese patient and provide albumin, possibly will need dialysis starting Tuesday if does not improve. 03/17/2025 patient currently seen in ICU. Remains on the ventilator. Patient still with significant anasarca. Blood sugar 143. Blood pressure 127/92, heart rate 85. Hemoglobin 12. Sodium 152, potassium 3.8, bicarbonate 39.7, BUN 70, creatinine 2.3, blood sugar 172, calcium 9.4, phosphorus 3.2, magnesium 1.7, LFTs normal, BNP 389, albumin 3.2, chest x-ray showed significant edema 03/18/2025: Patient seen and examioned in ICU. Remains on ventilator, trached. Significant anasarca. 0.5L in, 3.1L out. sodium 153, bicarb 39.7, BUN 69, creatinine 2.3, eGFR31. Resume free water for hypernatremia, continue bumex for diauresis. 04/2025: Patient seen and examined in ICU, ricardo on ventilator, trached. Anasarca significantly improved. 0.8 L in, 1.5 L out. Patient hypernatremia increasing to 153, osmolarity 329. BUN 70, creatinine 2.8, EGFR 28. Hold diuresis, will get [place] catheter to check if patient remains fluid overloaded. Exam Vital Signs Temp Pulse Resp BP Pulse Ox O2 Del Method O2 Flow Rate 97.7 F 120 H 36 H 137/69 H 92 L Mechanical Ventilation 10 03/19/25 08:00 03/19/25 09:00 03/19/25 09:00 03/19/25 09:00 03/19/25 09:00 03/19/25 04:00 03/19/25 06:42 FiO2 40 03/19/25 06:42 Narrative Exam PE: Gen: Well-developed and well-nourished. Morbidly Obese. HEENT: NCAT, PERRLA, EOMI, MMM, anicteric conjunctivae. CVS: normal S1 and S2. RRR. No M/R/G. Resp: CTA B/L. No rhonchi, rales, crackles or wheezing. Poor lung sounds due to body habitus. Coarse due to ventilator. Abd: soft, non-tender, non-distended. MSK: Good ROM in BUE & BLE. No rash. Diffuse 2+ pitting edema in all extremities, improved. Neuro: CN II-XII grossly intact. Patient alert and appropriately responsive. Tracheostomy in place. Objective Labs 03/24/25 05:18 03/24/25 15:54 Labs: Laboratory Results - last 24 hr 03/18/25 03/19/25 03/19/25 17:18 05:00 05:12 WBC 10.5 RBC 4.12 L Hgb 11.8 L Hct 38.3 L MCV 93 MCH 28.6 MCHC 30.8 L RDW Std Deviation 48.2 H Plt Count 306 D Neut % (Auto) 74 Lymph % (Auto) 8 L [place] % (Auto) 14 H Eos % (Auto) 2 Baso % (Auto) 1 Neut # (Auto) 7.8 H Lymph # (Auto) 0.9 L [place] # (Auto) 1.4 H Eos # (Auto) 0.2 Baso # (Auto) 0.1 Immature Gran # (Auto) 0.12 H Absolute Nucleated RBC 0.00 Immature Gran % 1 H Nucleated RBC % 0 PT 13.8 H INR 1.3 APTT 30.5 Puncture Site Right Radial ABG pH 7.45 ABG pCO2 55 H ABG pO2 73 L D ABG HCO3 38 H ABG O2 Saturation 96 ABG Base Excess 12 H FiO2 40 Sodium 149 H 153 H Potassium 4.1 D 3.4 D Chloride 104 104 Carbon Dioxide 35.0 H 37.5 H Anion Gap 10 12 BUN 67 H 70 H Creatinine 2.4 H 2.5 H Estim Creat Clear Calc 51.6 L 49.5 L eGFR 29 L 28 L BUN/Creatinine Ratio 28 H 28 H Glucose 188 H 183 H Calculated Osmolality 320 H 329 H Calcium 8.8 8.8 Corrected Calcium 9.4 9.5 Phosphorus 2.8 3.0 Magnesium 1.9 Total Bilirubin 1.1 AST 30 ALT 19 Alkaline Phosphatase 106 B-Natriuretic Peptide 135 H Total Protein 5.9 Albumin 3.2 L 3.1 L Globulin 2.8 Albumin/Globulin Ratio 1.1 L ABG Interpretation ABG results: 02/27/25 02/28/25 03/01/25 06:55 04:57 04:39 ABG pH 7.27 L 7.37 D 7.41 ABG pCO2 57 H 48 44 ABG pO2 101 78 L D 69 L ABG HCO3 26 28 H 28 H ABG O2 Saturation 98 95 93 ABG Base Excess -2 2 3 VBG pH VBG pCO2 VBG pO2 VBG Base Excess 04/18/25 04/18/25 04/19/25 13:15 14:52 04:25 ABG pH Cancelled 7.41 7.45 ABG pCO2 Cancelled 45 42 ABG pO2 Cancelled 53 L* 66 L ABG HCO3 Cancelled 28 H 29 H ABG O2 Saturation Cancelled 85 L 92 ABG Base Excess Cancelled 3 5 H VBG pH VBG pCO2 VBG pO2 VBG Base Excess 03/03/25 03/05/25 03/05/25 04:40 16:30 16:55 ABG pH 7.45 Cancelled 7.34 L D ABG pCO2 43 Cancelled 72 H* D ABG pO2 72 L Cancelled 83 ABG HCO3 30 H Cancelled 38 H ABG O2 Saturation 94 Cancelled 95 ABG Base Excess 5 H Cancelled 9 H VBG pH VBG pCO2 VBG pO2 VBG Base Excess 03/05/25 03/06/25 03/06/25 23:36 01:48 05:22 ABG pH 7.37 7.34 L 7.52 H D ABG pCO2 67 H 74 H* 47 D ABG pO2 150 H D 88 D 160 H D ABG HCO3 38 H 40 H 38 H ABG O2 Saturation 99 H 96 100 H ABG Base Excess 10 H 11 H 13 H VBG pH VBG pCO2 VBG pO2 VBG Base Excess 03/06/25 03/07/25 03/07/25 17:10 05:00 14:03 ABG pH 7.46 H ABG pCO2 53 H ABG pO2 65 L D ABG HCO3 38 H ABG O2 Saturation 93 ABG Base Excess 12 H VBG pH 7.50 7.52 VBG pCO2 50 47 VBG pO2 70 H 61 H VBG Base Excess 13 H 14 H 03/09/25 03/09/25 03/09/25 08:17 10:25 17:29 ABG pH 7.25 L D 7.29 L 7.29 L ABG pCO2 93 H* D 85 H* 88 H* ABG pO2 81 L 57 L* D 85 D ABG HCO3 41 H 40 H 43 H ABG O2 Saturation 95 89 L 97 ABG Base Excess 10 H 10 H 12 H VBG pH VBG pCO2 VBG pO2 VBG Base Excess 03/09/25 03/10/25 03/10/25 23:24 07:17 11:25 ABG pH 7.32 L 7.28 L 7.31 L ABG pCO2 78 H* D 90 H* D 81 H* ABG pO2 69 L 47 L* D 63 L ABG HCO3 40 H 43 H 41 H ABG O2 Saturation 94 80 L 93 ABG Base Excess 11 H 12 H 11 H VBG pH VBG pCO2 VBG pO2 VBG Base Excess 03/10/25 03/11/25 03/12/25 16:56 04:19 04:42 ABG pH 7.40 7.48 H 7.43 ABG pCO2 66 H D 54 H D 59 H ABG pO2 68 L 67 L 77 L ABG HCO3 41 H 40 H 39 H ABG O2 Saturation 94 94 96 ABG Base Excess 13 H 15 H 12 H VBG pH VBG pCO2 VBG pO2 VBG Base Excess 03/13/25 03/14/25 03/15/25 04:32 04:25 04:37 ABG pH 7.47 H 7.46 H 7.41 ABG pCO2 53 H 50 H 56 H ABG pO2 60 L 70 L 69 L ABG HCO3 38 H 36 H 35 H ABG O2 Saturation 93 95 95 ABG Base Excess 13 H 10 H 9 H VBG pH VBG pCO2 VBG pO2 VBG Base Excess 03/16/25 03/16/25 03/17/25 04:54 09:53 04:35 ABG pH 7.45 7.48 H 7.47 H ABG pCO2 51 H 49 H 53 H ABG pO2 68 L 34 L* D 87 D ABG HCO3 35 H 37 H 38 H ABG O2 Saturation 95 67 L 97 ABG Base Excess 10 H 12 H 13 H VBG pH VBG pCO2 VBG pO2 VBG Base Excess 03/18/25 03/19/25 04:26 05:00 ABG pH 7.44 7.45 ABG pCO2 57 H 55 H ABG pO2 107 D 73 L D ABG HCO3 38 H 38 H ABG O2 Saturation 99 H 96 ABG Base Excess 12 H 12 H VBG pH VBG pCO2 VBG pO2 VBG Base Excess Quality Measures Quality Measures sepsis Current suspected stage: sepsis Possible source: pulmonary Blood cultures ordered: completed in ED Antibiotic ordered: Yes Advance care planning discussed with:: patient Assessment & Plan Assessment Current Active Medications: Generic Name Dose Route Start Last Admin Trade Name Freq PRN Reason Stop Dose Admin Acetaminophen 650 mg 03/10/25 19:17 Acetaminophen 325 Mg Tablet PO 03/29/25 09:23 Q4HR PRN fever > 100.4 Al Hydrox/Mg Hydrox/Simethicone 30 ml 02/27/25 09:24 Mg Hyd/Al Hyd/Virgilio (Maalox Reg) Susp 30 Ml Udc PO 03/29/25 09:23 Q4HR PRN Heartburn or Upset Stomach Amiodarone HCl 200 mg 03/01/25 09:00 03/19/25 08:40 Amiodarone Hcl 200 Mg Tablet PO 03/31/25 08:59 Not Given QDAY [facility] Bumetanide 2 mg 03/17/25 21:00 03/18/25 21:28 Bumetanide Inj 0.25 Mg/Ml Vial 4 Ml IVP 04/16/25 20:59 2 mg BID KOURTNEY Administration Dextrose 25 ml 03/03/25 08:20 Dextrose 50%-Water Inj 50 Ml Syringe IV 04/02/25 08:19 Q15MIN PRN BG 50-70 responsive npo pt Dextrose 50 ml 03/03/25 08:20 Dextrose 50%-Water Inj 50 Ml Syringe IV 04/02/25 08:19 Q15MIN PRN BG <50 OR BG <70 & pt unresponsive Glucagon 1 mg 03/03/25 08:20 Glucagon Inj 1 Mg Vial IM Q15MIN PRN BG <70, and no IV access Heparin Sodium (Porcine) 7,500 unit 03/15/25 02:00 03/18/25 23:54 Heparin Sod Inj 5000 Unit/Ml Vial SC 03/29/25 01:59 Not Given Q8HR [facility] Potassium Chloride 20 meq in 100 mls @ 50 mls/hr 03/19/25 09:00 Kcl Ivpb IV 03/19/25 10:59 Q2H [facility] Insulin Human Lispro 0 unit 03/06/25 06:00 03/19/25 05:22 Insulin Lispro (Admelog) 1 Unit/0.01 Ml Unit SC 04/05/25 05:59 Not Given Q6H [facility] Protocol Magnesium Hydroxide 30 ml 02/27/25 09:24 Milk Of Magnesia Susp 30 Ml Udc PO 03/29/25 09:23 QDAY PRN CONSTIPATION Ondansetron HCl 4 mg 03/05/25 20:46 03/09/25 03:49 Ondansetron Inj 2 Mg/Ml Inj 2 Ml IV 04/04/25 20:45 4 mg Q6HR PRN Administration NAUSEA OR VOMITING Protocol Pantoprazole Sodium 40 mg 02/27/25 11:15 03/19/25 08:26 Pantoprazole Inj 40 Mg Vial IV 03/29/25 11:14 40 mg QDAY KOURTNEY Administration Rivaroxaban 20 mg 03/04/25 17:30 03/12/25 13:27 Rivaroxaban 10 Mg Tablet PO 04/03/25 17:29 Not Given WSUPPER KOURTNEY Plan 64-year-old male with past medical history of DM2, hypertension, and A-fib was admitted to the ICU on 02/27/2025 for acute hypoxic respiratory failure and altered mental status requiring intubation. Nephrology consulted for acute renal failure with worsening kidney function. #[place] #Metabolic alkalosis #Hypernatremia, Hyper-osmolar Patient has no history of chronic kidney disease. Patient developed KENIA with worsening renal function during hospitalization. Initially suspected of cardiorenal syndrome, was treated with IV Bumex. Despite diuretic therapy patient kidney function continued to worsen. Suspect currently in ATN. Bumex was held, patient started on free water flushes. Patient continued to have worsening kidney function. Patient started on albumin today. Patient appears intravascularly depleted and intravascularly fluid overloaded. Ultrasound taken, unable to visualize kidneys. Urinalysis done showing trace blood, trace protein, 3+ uric acid crystals, 2+ bacteria. Urine total protein 99, urine creatinine 104. Nephrotic proteinuria ruled out, suspect KENIA related to right heart failure in the setting of elevated cardiac wedge pressure. Patient sodium worsening, however fluid status appears to go significantly improved on exam. Will get [place]-Mary catheter to check for fluid overload status later today. -Avoid nephrotoxic agent -Renally dose medication -Monitor daily labs -Continue free water flushes with goal of slow correction of free water deficit -Recommend holding diuresis pending results of [place]-Mary catheter #Acute encephalopathy #Right diastolic CHF #Hx of A-fib #Acute on chronic hypoxic and hypercapnic respiratory failure #Obesity hypoventilation syndrome and obstructive sleep apnea #Community-acquired pneumonia, Enterobacter [place] #Morbid obesity #DM2 #Community-acquired pneumonia, Enterobacter [place] Management as per primary team Thank you for allowing us to participate in the care of this patient. Management discussed with attending Dr. Gannon. Anil Rodriguez MD PGY?1 Attending Provider Attestation/Addendum Patient seen and examined with resident physician Dr. Campos. Note reviewed, agree with findings and recommendations. 03/19/2025 Morbidly obese gentleman presented with acute hypoxic/hypercarbic respiratory failure. On ventilator. Significant anasarca noted. hold diuretics. [place]-Mary showed patient looks dehydrated. Patient made good urine. Currently in KENIA. Hypernatremia-on free water flushes. one dose Diamox given Plan of care discussed with ICU team.
--- NOTE | 2025-03-19 09:40 | ESPR_ITS ---
Documentation for date of: 03/19/25 Subjective Subjective Interval history: Interval history: 64-year-old male with past medical history of DM2, hypertension, and A-fib was admitted to the ICU on 02/27/2025 after coming to the ED with complaints of altered mental status and shortness of breath. Patient was intubated in the ED therefore most of the history was taken from chart review and from the parents who are at bedside. Patient's parents stated that yesterday morning patient could not get up from his chair and then later that evening/night he started getting confused and was not making sense when he was seen. This morning EMS found the patient on the floor and he was saturating in the 70s even on high flow nasal cannula. Given his hypoxia patient was intubated in the ED. As per parents were at bedside they stated that prior to this patient was able to walk around, but that since yesterday morning he was unable to walk. On assessment patient was intubated, but was still able to answer yes or no questions. He was also able to follow commands. Patient spiked a fever while in the ED and he became hypotensive unresponsive to IV fluids therefore he was placed on vasopressors. 02/28/2025: Patient was seen examined at bedside this morning. Overnight patient did spike a fever of 100.4 and he had no measurable urine output. Patient placed on amio drip overnigth. He was also given Bumex 1 mg x 1 overnight to see if he had better urine output, but none was measured. Today's patient's chest x-ray this looks like it is improving and he did have wet pants and some urine in the pure wick catheter. Will start patient on Bumex drip at 1 mg and will monitor patient's daily weights. Patient was on very low-dose of Levophed therefore we will start patient on midodrine 10 mg every 6 hours and wean off Levophed entirely. Patient is nasogastric tube was not visualized had x-ray, but on auscultation air was audible in the stomach when hand was placed through the nasogastric tube. Will discontinue patient's vancomycin and Zosyn if his MRSA is negative and will transition to azithromycin and Rocephin. 03/01/2025: Patient seen and examined at bedside this morning. Overnight patient went into A-fib with RVR and he finishes bolus of amiodarone. Patient had a documented urine output of 150, but that she states 1 were very wet. His Bumex drip finished overnight and they were not able to start more Bumex drip as there was not available in the pharmacy overnight. Patient's weight did go down from 249 to 247 kg. Blood cultures have been negative in 48 hours and MRSA nares negative. Will discontinue vancomycin and Zosyn and will start azithromycin and Rocephin. Patient's ventilator requirements have been unchanged, but has been saturating in the 94% therefore we will try and wean down on oxygen requirements. His blood pressure has been stable off Levophed and only on midodrine. His kidney function has been worsening, but expect improvement with more diuresis. Started Amiodarone 200mg qday. 03/02/2025: No overnight events, todays weight 246, we will continue bumex drip. NIF today as -12, we will re-evaluate tomorrow to attempt extubation. Midodrine decreased to 5 q6hr 03/03/2025: Patient was seen examined at bedside this morning. No acute overnight events. Patient was taken off the Precedex yesterday night. Today's weight is 242 kg. Succesfull extubation today, will transition to bipap. 03/06/2025: Was notified by floors team that patient is tachypneic in the 40s with increased work of breathing, confusion, and agitation. He was AAOx 1 (name) and saying leave me alone. He continues to pull at his BIPAP and had to be restrained, with a sitter at bedside. His BIPAP settings were uptitrated from 10/5 to 16/6 without significant improvement of PCO2. Repeat ABG showed pH 7.37 with CO2 at 74. Floor team attempted to notify family with no answer. He remains confused and agitated. Patient to be intubated due to worsening respiratory effort. 03/06/2025: Patient was seen and examined at bedside this morning. He was sedated in the morning, but was weaned off. Patient was able to follow commands he understood and was able to at least answer yes and no questions. Patient was placed on spontaneous breathing trial, but his RSBI was in the 130s therefore patient was high risk to fail extubation at this time. Placed patient back on prior ventilator settings, will follow any sedation at this time as she is calm. Sedation will be placed if patient becomes agitated. Patient is diuresing well and his current weight today is 227 kilograms. Gave metolazone 10 mg x 1 today for additional diuresis and started tube feeds today. Will reattempt weaning parameters tomorrow for possible extubation. 03/07/2025: Patient seen and examined at bedside this morning. No overnight events. Patient's weight today was 226.4 kg. Patient's blood gas that showed a pH of 7.46, PCO2 of 53, and PO2 of 65 this most likely his baseline PCO2. Patient initially did not get his Bumex as it was discontinued the night prior, but today we will continue Bumex 1 mg twice daily. Chest x-ray that showed some more vascular congestion, but still on and physical exam was clear bilaterally. Patient passed spontaneous breathing trial and was extubated successfully today. At this time we will downgrade back to the medical floors. 03/10/2025: Patient was upgraded today at approximately 15:30 for intubation due to declining mentation on the BiPAP, despite remaining on BiPAP for majority of the last 24 hours. Patient was no longer able to answer questions and not following commands. Patient's decision-maker was contacted who consented for intubation. ABG in the morning had shown pH 7.31, pCO2 81, pO2 63, HCO3 41. Will start fentanyl and propofol. Will continue amiodarone PO dose through OG tube. If HR not rate controlled resume metoprolol XL as well. Will continue to hold the Bumex due to worsening KENIA and soft BPs. 03/11/2025: Patient seen and examined at bedside this morning. No acute overnight events. Patient is on sedation, will try and wean down sedation to assess his neurological status at this time. Patient's kidney function continue to worsen with creatinine going up to 2.2, but at this time chest x-ray showed a lot of congestion therefore we will restart Bumex 1 mg twice daily. ABG today shows some respiratory alkalosis with pH of 7.48, pCO2 of 54, and PO2 of 67. Patient has already been upgraded multiple times to the ICU requiring intubation during this hospital stay due to similar symptoms. Patient will most likely benefit from a tracheostomy at this point to overcome the anatomical issues causing him to become hypoxic and hypercapnic, will speak with patient's family and the patient himself once he is weaned off sedation.. Patient had no fevers and his WBCs are downtrending. 03/12/2025: Patient was seen and examined at bedside this morning. Overnight patient was a little bit agitated and biting on the tube therefore he was given a push of Versed. This morning will wean down sedation to possibly assess patient's neurological status and discussed the possibility of needing a tracheostomy with him. Chest x-ray does look a little bit better with less congestion today. GNR were stained in Sputum cultures. Patient's current weight is 220 kg. Will stop diuretics as patient kidney function is continuing to worsen. Will start free water flushes and give him some IV fluids today. Will speak about possible tracheostomy once he wakes up. I ws notified by patient's parent's that the patient is jehova's witness therefore would not want any blood products. 03/13/2025: Patient was seen and examined at bedside this morning. No acute overnight events. Patient's kidney function continues to worsen as his creatinine is 2.5 today, will give 1 L of IV fluids and will continue with free water flushes for now. Holding diuresis at this time. Patient did grow Enterobacter Cloacoe in the sputum which was sensitive to cefepime therefore we will continue with cefepime for now. Patient potassium was also low therefore gave 40 mEq x 1. Surgery plans for tracheostomy or Tuesday therefore holding Xarelto for now. Turned off all sedation and will reassess neurological status in the evening. 03/14/2025: No overnight events reported. Total urine output overnight 300 cc. No pyrexia reported. Precedex stopped at 7:35 AM. Scheduled trach at 12 PM. Patient examined at bedside. Patient continues to be mechanically ventilated on a PEEP of 8, FiO2 of 50 and tidal volume 420 thus nonverbal. Patient noted to have lower pedal edema. Patient's acute kidney injury unchanged from previous labs creatinine 2.5 and GFR of 28. Hypernatremia hyperosmolar. Morning ABG showing metabolic alkalosis with improved pCO2 of 50 and bicarb of 36. Patient is currently n.p.o. and scheduled for trach at 12 PM today. Restart heparin 6 hours after procedure. 03/15/2025: No overnight events. Afebrile overnight. Minimal urine output of 200 cc. Patient continues to remain off precedex. Tracheostomy, mechanically ventilated VT 420, PEEP 8, and flow 40/FiO2 of 60. Patient is alert and cooperative. Atrial fibrillation still present, on Amiodarone and Metoprolol Tartrate. Bumex drip 1 mg/hr plus daily albumin. Nephrology consulted given poor kidney function, renal us, urinalysis, uric acid, and albumin-Cr ration, and total urine. Patient scheduled for PEG tube tomorrow, please discontinue heparin drip tomorrow morning. 03/16/2025: Patient agitated overnight and was given lorazepam and olanzapine. He had UOP 1600 overnight. Swanz catheter was floated this morning: RAP 25 PAP 38 PCWP 23, all high pressures. PAWO2 obtained was 67%. Using Kenneth's formula, the cardiac output is 8.3 L/min, caridac index 2.7, and stroke volume 83. Given his high cardiac output and elevated RA pressures, will start bumex ggt. The patient is also hypernatremic at 150 with a free water deficit of 4L for a goal Na of 145. We will start free water flushes at 250cc/hr. Plan for PEG tube placement this afternoon. 03/18/2025: Overnight patient was agitated, Ativan and Quetiapine given x1. Urine output 4400 and negative net balance 3301. Weight 204. Patient continues to be mechanically ventilated on a PEEP of 8, VT 420 and FiO2 of 60. NG tube in the right nostral. Potassium repleted and following potassium. CVP 9 (=17-8). Bumex drip-stopped----> to Bumex 2 mg twice daily started. Plan for J-tube in tomorrow and PICC line. D/C central line. NPO after midnight. PT/PTT AM draws. Hold heparin after midnight.Feed tubes restarted. 03/18/2025: No overnight events. Patient examined this morning and is alert and following commands. Net balance of -1600. 1 bowel movement recorded overnight. Pateint was unable to obtain PICC this evening. Rescheduled for tomorrow. Resumed Heparin. Please hold heparin overnight. Dr. Banda unable to perform Jtube. General surgery consulted for J tube, will follow up tomorrow. Will hold off on NG tube-pateint may benefit from PPN. Metroprolol and Amiodarone both holding off as no NG tube. Consider Amiodarone IV if Afib w/ rvr develops. 03/19/2025: No overnight events. Last 12 hours net output -900. Dry weight 197.9 (on admission 247.7 kg). Holding diuresis, consider restarting Bumex with decreased frequency and dosing. 500 cc given with potassium replacement. Pending PICC line, will have to be done at bedside by Dr. Banda as over the weight limit in IR. PICC line for IV access and possible PPN. Patient failed swallow evaluation today. Some ice chips ok. Medication ok to take will small sips of water. General surgeon consulted for Jejunostomy and unable to do procedure given past medical history of Daniel-gastric bypass. Dr. Doty will try to replace NG tube. Day 3 being NPO. Mechanical ventilation via tracheostomy d/c on 03/19/2025, now on bi-blow. Swanz catheter: RAP 8, PAP 27, PCWP 7, improved. Exam Vital Signs Temp Pulse Resp BP Pulse Ox O2 Del Method O2 Flow Rate 97.7 F 120 H 36 H 137/69 H 92 L Mechanical Ventilation 10 03/19/25 08:00 03/19/25 09:00 03/19/25 09:00 03/19/25 09:00 03/19/25 09:00 03/19/25 04:00 03/19/25 06:42 FiO2 40 03/19/25 06:42 Narrative Exam General Appearance: Alert & Oriented X1, obese male who is lying in bed in no acute distress, mechanically ventilated with tracheostomy. HEENT: Skull symmetrical and atraumatic. Conjunctivae pale pink and moist. Pupils equal, round, reactive to light and accommodation (PERRL). External ear without lesion or discharge. Cardio: Normal Rate and Rhythm with S1 and S2 heart sounds. No murmurs or extra heart sounds auscultated. No bruits on carotid auscultation. Lower pedal edema. Lungs: Symmetric expansion. Breath sounds vesicular but with upper airway sounds from ventilation. No crackles, wheezing or rhonchi Abdomen: Non-tender, Non-distended, Normal Reactive Bowel Sounds Neuro: YES Alert, YES cooperative, No oriented to person, No place, and NO time. Non verbal, secondary to tracheostomy. Upper motor strength 4/5 and lower motor strength 1/5. Objective Labs 03/20/25 04:36 03/20/25 04:36 Labs: Laboratory Results - last 24 hr 03/18/25 03/19/25 03/19/25 17:18 05:00 05:12 WBC 10.5 RBC 4.12 L Hgb 11.8 L Hct 38.3 L MCV 93 MCH 28.6 MCHC 30.8 L RDW Std Deviation 48.2 H Plt Count 306 D Neut % (Auto) 74 Lymph % (Auto) 8 L Meade % (Auto) 14 H Eos % (Auto) 2 Baso % (Auto) 1 Neut # (Auto) 7.8 H Lymph # (Auto) 0.9 L Meade # (Auto) 1.4 H Eos # (Auto) 0.2 Baso # (Auto) 0.1 Immature Gran # (Auto) 0.12 H Absolute Nucleated RBC 0.00 Immature Gran % 1 H Nucleated RBC % 0 PT 13.8 H INR 1.3 APTT 30.5 Puncture Site Right Radial ABG pH 7.45 ABG pCO2 55 H ABG pO2 73 L D ABG HCO3 38 H ABG O2 Saturation 96 ABG Base Excess 12 H FiO2 40 Sodium 149 H 153 H Potassium 4.1 D 3.4 D Chloride 104 104 Carbon Dioxide 35.0 H 37.5 H Anion Gap 10 12 BUN 67 H 70 H Creatinine 2.4 H 2.5 H Estim Creat Clear Calc 51.6 L 49.5 L eGFR 29 L 28 L BUN/Creatinine Ratio 28 H 28 H Glucose 188 H 183 H Calculated Osmolality 320 H 329 H Calcium 8.8 8.8 Corrected Calcium 9.4 9.5 Phosphorus 2.8 3.0 Magnesium 1.9 Total Bilirubin 1.1 AST 30 ALT 19 Alkaline Phosphatase 106 B-Natriuretic Peptide 135 H Total Protein 5.9 Albumin 3.2 L 3.1 L Globulin 2.8 Albumin/Globulin Ratio 1.1 L ABG Interpretation ABG results: 02/27/25 02/28/25 03/01/25 06:55 04:57 04:39 ABG pH 7.27 L 7.37 D 7.41 ABG pCO2 57 H 48 44 ABG pO2 101 78 L D 69 L ABG HCO3 26 28 H 28 H ABG O2 Saturation 98 95 93 ABG Base Excess -2 2 3 VBG pH VBG pCO2 VBG pO2 VBG Base Excess 03/01/25 03/01/25 03/02/25 13:15 14:52 04:25 ABG pH Cancelled 7.41 7.45 ABG pCO2 Cancelled 45 42 ABG pO2 Cancelled 53 L* 66 L ABG HCO3 Cancelled 28 H 29 H ABG O2 Saturation Cancelled 85 L 92 ABG Base Excess Cancelled 3 5 H VBG pH VBG pCO2 VBG pO2 VBG Base Excess 03/03/25 03/05/25 03/05/25 04:40 16:30 16:55 ABG pH 7.45 Cancelled 7.34 L D ABG pCO2 43 Cancelled 72 H* D ABG pO2 72 L Cancelled 83 ABG HCO3 30 H Cancelled 38 H ABG O2 Saturation 94 Cancelled 95 ABG Base Excess 5 H Cancelled 9 H VBG pH VBG pCO2 VBG pO2 VBG Base Excess 03/05/25 03/06/25 03/06/25 23:36 01:48 05:22 ABG pH 7.37 7.34 L 7.52 H D ABG pCO2 67 H 74 H* 47 D ABG pO2 150 H D 88 D 160 H D ABG HCO3 38 H 40 H 38 H ABG O2 Saturation 99 H 96 100 H ABG Base Excess 10 H 11 H 13 H VBG pH VBG pCO2 VBG pO2 VBG Base Excess 03/06/25 03/07/25 03/07/25 17:10 05:00 14:03 ABG pH 7.46 H ABG pCO2 53 H ABG pO2 65 L D ABG HCO3 38 H ABG O2 Saturation 93 ABG Base Excess 12 H VBG pH 7.50 7.52 VBG pCO2 50 47 VBG pO2 70 H 61 H VBG Base Excess 13 H 14 H 03/09/25 03/09/25 03/09/25 08:17 10:25 17:29 ABG pH 7.25 L D 7.29 L 7.29 L ABG pCO2 93 H* D 85 H* 88 H* ABG pO2 81 L 57 L* D 85 D ABG HCO3 41 H 40 H 43 H ABG O2 Saturation 95 89 L 97 ABG Base Excess 10 H 10 H 12 H VBG pH VBG pCO2 VBG pO2 VBG Base Excess 03/09/25 03/10/25 03/10/25 23:24 07:17 11:25 ABG pH 7.32 L 7.28 L 7.31 L ABG pCO2 78 H* D 90 H* D 81 H* ABG pO2 69 L 47 L* D 63 L ABG HCO3 40 H 43 H 41 H ABG O2 Saturation 94 80 L 93 ABG Base Excess 11 H 12 H 11 H VBG pH VBG pCO2 VBG pO2 VBG Base Excess 03/10/25 03/11/25 03/12/25 16:56 04:19 04:42 ABG pH 7.40 7.48 H 7.43 ABG pCO2 66 H D 54 H D 59 H ABG pO2 68 L 67 L 77 L ABG HCO3 41 H 40 H 39 H ABG O2 Saturation 94 94 96 ABG Base Excess 13 H 15 H 12 H VBG pH VBG pCO2 VBG pO2 VBG Base Excess 03/13/25 03/14/25 03/15/25 04:32 04:25 04:37 ABG pH 7.47 H 7.46 H 7.41 ABG pCO2 53 H 50 H 56 H ABG pO2 60 L 70 L 69 L ABG HCO3 38 H 36 H 35 H ABG O2 Saturation 93 95 95 ABG Base Excess 13 H 10 H 9 H VBG pH VBG pCO2 VBG pO2 VBG Base Excess 03/16/25 03/16/25 03/17/25 04:54 09:53 04:35 ABG pH 7.45 7.48 H 7.47 H ABG pCO2 51 H 49 H 53 H ABG pO2 68 L 34 L* D 87 D ABG HCO3 35 H 37 H 38 H ABG O2 Saturation 95 67 L 97 ABG Base Excess 10 H 12 H 13 H VBG pH VBG pCO2 VBG pO2 VBG Base Excess 03/18/25 03/19/25 04:26 05:00 ABG pH 7.44 7.45 ABG pCO2 57 H 55 H ABG pO2 107 D 73 L D ABG HCO3 38 H 38 H ABG O2 Saturation 99 H 96 ABG Base Excess 12 H 12 H VBG pH VBG pCO2 VBG pO2 VBG Base Excess Quality Measures Quality Measures sepsis Current suspected stage: ruled out Possible source: pulmonary Blood cultures ordered: completed in ED Antibiotic ordered: Yes Advance care planning discussed with:: patient Assessment & Plan Assessment Current Active Medications: Generic Name Dose Route Start Last Admin Trade Name Freq PRN Reason Stop Dose Admin Acetaminophen 650 mg 03/10/25 19:17 Acetaminophen 325 Mg Tablet PO 03/29/25 09:23 Q4HR PRN fever > 100.4 Al Hydrox/Mg Hydrox/Simethicone 30 ml 02/27/25 09:24 Mg Hyd/Al Hyd/Virgilio (Maalox Reg) Susp 30 Ml Udc PO 03/29/25 09:23 Q4HR PRN Heartburn or Upset Stomach Amiodarone HCl 200 mg 03/01/25 09:00 03/19/25 08:40 Amiodarone Hcl 200 Mg Tablet PO 03/31/25 08:59 Not Given QDAY KOURTNEY Bumetanide 2 mg 03/17/25 21:00 03/18/25 21:28 Bumetanide Inj 0.25 Mg/Ml Vial 4 Ml IVP 04/16/25 20:59 2 mg BID KOURTNEY Administration Dextrose 25 ml 03/03/25 08:20 Dextrose 50%-Water Inj 50 Ml Syringe IV 04/02/25 08:19 Q15MIN PRN BG 50-70 responsive npo pt Dextrose 50 ml 03/03/25 08:20 Dextrose 50%-Water Inj 50 Ml Syringe IV 04/02/25 08:19 Q15MIN PRN BG <50 OR BG <70 & pt unresponsive Glucagon 1 mg 03/03/25 08:20 Glucagon Inj 1 Mg Vial IM Q15MIN PRN BG <70, and no IV access Heparin Sodium (Porcine) 7,500 unit 03/15/25 02:00 03/18/25 23:54 Heparin Sod Inj 5000 Unit/Ml Vial SC 03/29/25 01:59 Not Given Q8HR [facility] Potassium Chloride 20 meq in 100 mls @ 50 mls/hr 03/19/25 09:00 Kcl Ivpb IV 03/19/25 10:59 Q2H [facility] Insulin Human Lispro 0 unit 03/06/25 06:00 03/19/25 05:22 Insulin Lispro (Admelog) 1 Unit/0.01 Ml Unit SC 04/05/25 05:59 Not Given Q6H [facility] Protocol Magnesium Hydroxide 30 ml 02/27/25 09:24 Milk Of Magnesia Susp 30 Ml Udc PO 03/29/25 09:23 QDAY PRN CONSTIPATION Ondansetron HCl 4 mg 03/05/25 20:46 03/09/25 03:49 Ondansetron Inj 2 Mg/Ml Inj 2 Ml IV 04/04/25 20:45 4 mg Q6HR PRN Administration NAUSEA OR VOMITING Protocol Pantoprazole Sodium 40 mg 02/27/25 11:15 03/19/25 08:26 Pantoprazole Inj 40 Mg Vial IV 03/29/25 11:14 40 mg QDAY KOURTNEY Administration Rivaroxaban 20 mg 03/04/25 17:30 03/12/25 13:27 Rivaroxaban 10 Mg Tablet PO 04/03/25 17:29 Not Given WSUPPER KOURTNEY Plan 64-year-old male with past medical history of DM2, hypertension, A-fib, and Jehova's witness was admitted to the ICU on 02/27/2025 for shock and acute hypoxic respiratory failure. [employer]: #Acute encephalopathy, improving Able to tract and following commands. CVS: #Right diastolic CHF, improved Echo could not visualize all chambers with limited ability to determine patient's ejection fraction. Given body habitus, history of obstructive sleep apnea and obesity hypoventilation syndrome, right heart failure suspected. Lower pedal edema likely combination of heart failure and third spacing. Swanz Mary 03/15 showed elevated RAP 25 PAP 38 PCWP 23. [place] 03/16/2025 PCWP 9 (=17-8) [place] Mary 03/19/2025: RAP 8, PAP 27, PCWP 7 Dry weight: 197.9 Dry BNP 135 High cardiac output - Bumex 2 mg BID, holding, consider starting at qday vs BID - Daily weights - Strict I&O #Hx of A-fib [id number] score of 3 points indicating 3.2% risk of stroke per year Has bled score of 0 - Continue PO amiodarone 200 mg qday with small sips of water -Heparin 7500 qday, hold overnight for PICC line tomorrow -PT/PTT - Holding xarelto due to upcoming procedure Respiratory: #Acute on chronic hypoxic and hypercapnic respiratory failure #Obesity hypoventilation syndrome and obstructive sleep apnea #Community-acquired pneumonia, Enterobacter Cloacoe Patient was intubated on 02/27/2025, extubated 03/03/2025. Reintubated on 03/06/2025 and extubated 03/07/2025. Reintubated 03/10/2025 for hypercapnic encephalopathy Tracheostomy tube placed 03/15 [place] 03/19/2025 - Continue vent, wean as tolerated - Antibiotics, see ID section below Renal: #KENIA Pre-renal from cardiorenal and edema in the setting of third spacing, low albumin. Bumex drip discontinued. - Bumex 2 mg BID, hold -500 cc given with electrolyte replacements. - Nephrology following, Dr. Gannon, appreciate recommendations #Hypernatremia, Hyper-osmolar Free water deficit 4.2 L for goal Na 145 - Free water flushes 250cc every 6 hours, on hold as NG tube placement failed. #Metabolic Alkalosis Metabolic Alkalosis with ABG of 7.47 in the setting of contraction alkalosis from diuretics and likely underlying compensation for OHA as ideal bicarb would be 28. Plan holding Bumex 2 mg BID, consider restarting at lower frequency. Acetazolamide X 1 #Electrolytes Abnormalities potassium repeated likely secondary to Bumex. Continue to replace as needed. GI: PEG tube failed on Tuesday secondary to body habitus and likely history of Daniel-en-y gastric bypass surgery. NG placement lost, unable to replace. DR. oDty consulted and will re-insert NG tube. General surgery unable to do J-tube given history of daniel-en-y gastric bypass. Patient would benefit from TPN/PPN. -small sips of water with oral medication only. Some ice chips. -PT/PTT panel AM -Remains NPO Endo: #Morbid obesity Patient has a BMI of 79.5 #DM2 A1C 7.6 on 03/05/2025 - ISS - Hypoglycemia protocol ordered Heme: #Normocytic Anemia likely secondary to anemia of chronic disease given normal MCV. No acute intervention, continue to monitor #Leukocytosis, resolved. ID: #Enterobacter cloacoe pneumonia, resolved. Finished Rocephin (03/06/2025) - Continue cefepime 03/18/2025, completed Hospital Maintenance: Diet: Resume NG tube feeding, NPO after midnight. DVT ppx: heparin, hold heparin after midnight for PICC line on Tuesday GI ppx: protonix IV lines: PIV, Central line-->plan for PICC line on Tuesday Fuller: none Code status: Full code Dispo: ICU for acute on chronic hypoxic and hypercapnic respiratory failure. - The patient's plan was discussed with attending Dr. Kalpesh Esquivel MD PGY1 Internal Medicine Attending Provider Attestation/Addendum Patient seen and examined with above resident, Mery Esquivel MD. I agree with the findings, assessment, and plan of care as documented except for any differences below. Patient with continued improvement after aggressive diuresis. Right heart catheterization was performed again with confirmation of low pulmonary capillary wedge pressure. Mean pulmonary pressure remains above 20 with diastolic pressure gradient suggesting component of increased pulmonary vascular resistance in the setting of OHS/BASIA. Notably, patient was off of the calculation of supine during procedure today. Was on blow-by with 40% FiO2 which may also be affecting this but saturations remain normal. Nonetheless patient does have combined likely diastolic left heart failure with group 3 component secondary to the above. The patient's BNP also correlates with this and has nearly half since prior check. BUN and creatinine remained stable. Will hold off diuretics as per nephrology. Likely will have good urine output still with a long half-life of bumetanide. Patient with normalizing of bicarb, will hold off on additional Diamox. We did request GI to place NG tube for enteral access as general surgery also reports given prior history of gastric bypass surgery, jejunostomy in the OR will be complicated without expertise of bariatric surgery or IR that would be amenable to this. We did also request PICC line for definitive access in the long run as the patient will need ongoing interventions. Patient tolerating blow-by throughout the day. I will continue to follow him in the gastroenteritis floor with plan to keep him on trach mask/blow-by with resting overnight on ventilatory support. This will gradually be slow weaning process. Passy-Daly valve has been requested and this should be here later this week so that we can start to begin speech/swallow therapy as well. Patient will need long-term acute care hospital management given tracheostomy and need for mechanical ventilation prior to transition to return home. Patient and family updated on plan of care and results of repeat catheterization today. Central line has been removed to avoid risk of infection. He does not have any Fuller catheter as well. Continue to monitor daily weights for close tracking of fluid status. Total critical care time: I personally spent 40 minutes for review of physiologic parameters, direct the plan of care prep today, coordination of care with other specialists, and counseling patient at bedside. This is exclusive of time spent teaching housestaff or performing any separate billable procedures. Patient remains at risk for further morbidity and mortality warranting close monitoring and care only available in the intensive care unit. Patient requiring critical care services for acute on chronic hypoxic respiratory failure with superimposed pneumonia and acute on chronic diastolic and apical portion right heart failure.
--- NOTE | 2025-03-19 10:32 | PD.RESPROC ---
Procedures Procedure Date / Time 03/19/25 1032 Procedure Narrative Procedure Narrative: Attending Attestation: I was present for entire procedure. Patient tolerated procedure well with no immediate complications. No significant blood loss. Significant improvement in PA pressure, right atrial pressure, and pulmonary capillary wedge pressure now in single digits with removal of mechanical ventilatory support with blow-by oxygen at 40%. Patient had significant diastolic pressure gradient suggesting component of elevated PVR secondary to OHS/BASIA. Tracheostomy remains in place appropriately and patient adequately diuresed. BNP correlates with findings today. Will remove introducer sheath at the end of the procedure. Patient and family updated at bedside on results. Central Line Placement Right IJ: Indication(s): other ([place] [facility]) Procedure comment: Patient had a swan catheter in place in the RIJ which was used once again today to obtain pressures. Procedure was done at bedside with Dr Posey and we sterilized the catheter before introducing the balloon catheter. Patient tolerated the procedure well. CVP was 8, PA mean pressure was 24, PWP was 7 showing that patient has been adequately diuresed. We proceeded to remove the catheter after the procedure.
[2025-03-19] MEDS: POTASSIUM CHL 100 MEQ IV (10:54)
--- NOTE | 2025-03-19 11:05 | PC.RT ---
JESSENIA HIDALGO UNAVAILABLE AT THIS TIME, DR JUÁREZ MADE AWARE
[2025-03-19] MEDS: POTASSIUM CHL 10 mEq IVPB 10 MEQ/100 ML BAG 100 MEQ IV (11:42)
[2025-03-19] MEDS: INSULIN LISPRO (AdmeLOG) 1 UNIT/0.01 ML UNIT SC ×2 (11:58→17:45)
--- NOTE | 2025-03-19 13:14 | PD.RESPRO ---
Documentation for date of: 03/19/25 Subjective Subjective Interval history: Patient examined at bedside this morning, no acute overnight event.Balance of -950 . ICU team put a swan catheter which showed he is adequately diressed for now, so bumex on hold for now. pending pegtube placement, its been difficult to do the procedure consedering his Rouxy history. Exam Vital Signs Temp Pulse Resp BP Pulse Ox O2 Del Method O2 Flow Rate 97.7 F 115 H 19 110/78 95 Blow-by 10 03/19/25 08:00 03/19/25 11:01 03/19/25 11:01 03/19/25 11:01 03/19/25 11:01 03/19/25 11:01 03/19/25 11:01 FiO2 40 03/19/25 11:01 Narrative Exam Gen: Well-developed and well-nourished morbidly obese male. HEENT: NCAT, PERRLA, EOMI, MMM, anicteric conjunctivae, tracheostomy in place. CVS: Decreased heart sounds, normal S1 and S2. RRR. No M/R/G. Resp: Decreased breath sounds B/L. No rhonchi, rales, crackles or wheezing. Abd: soft, morbidly obese, non-tender, non-distended. BS+ in all 4 quadrants. Pitting edema over bilateral flanks and sides. MSK: Good ROM in BUE & BLE. 3+ pitting edema BLE. Neuro: Limited exam due to medical condition. Objective Labs 03/19/25 05:12 03/19/25 05:12 Labs: Laboratory Results - last 24 hr 03/18/25 03/19/25 03/19/25 17:18 05:00 05:12 WBC 10.5 RBC 4.12 L Hgb 11.8 L Hct 38.3 L MCV 93 MCH 28.6 MCHC 30.8 L RDW Std Deviation 48.2 H Plt Count 306 D Neut % (Auto) 74 Lymph % (Auto) 8 L [place] % (Auto) 14 H Eos % (Auto) 2 Baso % (Auto) 1 Neut # (Auto) 7.8 H Lymph # (Auto) 0.9 L [place] # (Auto) 1.4 H Eos # (Auto) 0.2 Baso # (Auto) 0.1 Immature Gran # (Auto) 0.12 H Absolute Nucleated RBC 0.00 Immature Gran % 1 H Nucleated RBC % 0 PT 13.8 H INR 1.3 APTT 30.5 Puncture Site Right Radial ABG pH 7.45 ABG pCO2 55 H ABG pO2 73 L D ABG HCO3 38 H ABG O2 Saturation 96 ABG Base Excess 12 H FiO2 40 Sodium 149 H 153 H Potassium 4.1 D 3.4 D Chloride 104 104 Carbon Dioxide 35.0 H 37.5 H Anion Gap 10 12 BUN 67 H 70 H Creatinine 2.4 H 2.5 H Estim Creat Clear Calc 51.6 L 49.5 L eGFR 29 L 28 L BUN/Creatinine Ratio 28 H 28 H Glucose 188 H 183 H Calculated Osmolality 320 H 329 H Calcium 8.8 8.8 Corrected Calcium 9.4 9.5 Phosphorus 2.8 3.0 Magnesium 1.9 Total Bilirubin 1.1 AST 30 ALT 19 Alkaline Phosphatase 106 B-Natriuretic Peptide 135 H Total Protein 5.9 Albumin 3.2 L 3.1 L Globulin 2.8 Albumin/Globulin Ratio 1.1 L ABG Interpretation ABG results: 02/27/25 02/28/25 03/01/25 06:55 04:57 04:39 ABG pH 7.27 L 7.37 D 7.41 ABG pCO2 57 H 48 44 ABG pO2 101 78 L D 69 L ABG HCO3 26 28 H 28 H ABG O2 Saturation 98 95 93 ABG Base Excess -2 2 3 VBG pH VBG pCO2 VBG pO2 VBG Base Excess 03/01/25 03/01/25 03/02/25 13:15 14:52 04:25 ABG pH Cancelled 7.41 7.45 ABG pCO2 Cancelled 45 42 ABG pO2 Cancelled 53 L* 66 L ABG HCO3 Cancelled 28 H 29 H ABG O2 Saturation Cancelled 85 L 92 ABG Base Excess Cancelled 3 5 H VBG pH VBG pCO2 VBG pO2 VBG Base Excess 03/03/25 03/05/25 03/05/25 04:40 16:30 16:55 ABG pH 7.45 Cancelled 7.34 L D ABG pCO2 43 Cancelled 72 H* D ABG pO2 72 L Cancelled 83 ABG HCO3 30 H Cancelled 38 H ABG O2 Saturation 94 Cancelled 95 ABG Base Excess 5 H Cancelled 9 H VBG pH VBG pCO2 VBG pO2 VBG Base Excess 03/05/25 03/06/25 03/06/25 23:36 01:48 05:22 ABG pH 7.37 7.34 L 7.52 H D ABG pCO2 67 H 74 H* 47 D ABG pO2 150 H D 88 D 160 H D ABG HCO3 38 H 40 H 38 H ABG O2 Saturation 99 H 96 100 H ABG Base Excess 10 H 11 H 13 H VBG pH VBG pCO2 VBG pO2 VBG Base Excess 03/06/25 03/07/25 03/07/25 17:10 05:00 14:03 ABG pH 7.46 H ABG pCO2 53 H ABG pO2 65 L D ABG HCO3 38 H ABG O2 Saturation 93 ABG Base Excess 12 H VBG pH 7.50 7.52 VBG pCO2 50 47 VBG pO2 70 H 61 H VBG Base Excess 13 H 14 H 03/09/25 03/09/25 03/09/25 08:17 10:25 17:29 ABG pH 7.25 L D 7.29 L 7.29 L ABG pCO2 93 H* D 85 H* 88 H* ABG pO2 81 L 57 L* D 85 D ABG HCO3 41 H 40 H 43 H ABG O2 Saturation 95 89 L 97 ABG Base Excess 10 H 10 H 12 H VBG pH VBG pCO2 VBG pO2 VBG Base Excess 03/09/25 03/10/25 03/10/25 23:24 07:17 11:25 ABG pH 7.32 L 7.28 L 7.31 L ABG pCO2 78 H* D 90 H* D 81 H* ABG pO2 69 L 47 L* D 63 L ABG HCO3 40 H 43 H 41 H ABG O2 Saturation 94 80 L 93 ABG Base Excess 11 H 12 H 11 H VBG pH VBG pCO2 VBG pO2 VBG Base Excess 03/10/25 03/11/25 03/12/25 16:56 04:19 04:42 ABG pH 7.40 7.48 H 7.43 ABG pCO2 66 H D 54 H D 59 H ABG pO2 68 L 67 L 77 L ABG HCO3 41 H 40 H 39 H ABG O2 Saturation 94 94 96 ABG Base Excess 13 H 15 H 12 H VBG pH VBG pCO2 VBG pO2 VBG Base Excess 03/13/25 03/14/25 03/15/25 04:32 04:25 04:37 ABG pH 7.47 H 7.46 H 7.41 ABG pCO2 53 H 50 H 56 H ABG pO2 60 L 70 L 69 L ABG HCO3 38 H 36 H 35 H ABG O2 Saturation 93 95 95 ABG Base Excess 13 H 10 H 9 H VBG pH VBG pCO2 VBG pO2 VBG Base Excess 03/16/25 03/16/25 03/17/25 04:54 09:53 04:35 ABG pH 7.45 7.48 H 7.47 H ABG pCO2 51 H 49 H 53 H ABG pO2 68 L 34 L* D 87 D ABG HCO3 35 H 37 H 38 H ABG O2 Saturation 95 67 L 97 ABG Base Excess 10 H 12 H 13 H VBG pH VBG pCO2 VBG pO2 VBG Base Excess 03/18/25 03/19/25 04:26 05:00 ABG pH 7.44 7.45 ABG pCO2 57 H 55 H ABG pO2 107 D 73 L D ABG HCO3 38 H 38 H ABG O2 Saturation 99 H 96 ABG Base Excess 12 H 12 H VBG pH VBG pCO2 VBG pO2 VBG Base Excess Quality Measures Quality Measures sepsis Current suspected stage: ruled out Possible source: pulmonary Blood cultures ordered: completed in ED Antibiotic ordered: Yes Advance care planning discussed with:: patient Assessment & Plan Assessment Current Active Medications: Generic Name Dose Route Start Last Admin Trade Name Freq PRN Reason Stop Dose Admin Acetaminophen 650 mg 03/10/25 19:17 Acetaminophen 325 Mg Tablet PO 03/29/25 09:23 Q4HR PRN fever > 100.4 Al Hydrox/Mg Hydrox/Simethicone 30 ml 02/27/25 09:24 Mg Hyd/Al Hyd/Virgilio (Maalox Reg) Susp 30 Ml Udc PO 03/29/25 09:23 Q4HR PRN Heartburn or Upset Stomach Amiodarone HCl 200 mg 03/01/25 09:00 03/19/25 08:40 Amiodarone Hcl 200 Mg Tablet PO 03/31/25 08:59 Not Given QDAY KOURTNEY Bumetanide 2 mg 03/17/25 21:00 03/18/25 21:28 Bumetanide Inj 0.25 Mg/Ml Vial 4 Ml IVP 04/16/25 20:59 2 mg BID KOURTNEY Administration Dextrose 25 ml 03/03/25 08:20 Dextrose 50%-Water Inj 50 Ml Syringe IV 04/02/25 08:19 Q15MIN PRN BG 50-70 responsive npo pt Dextrose 50 ml 03/03/25 08:20 Dextrose 50%-Water Inj 50 Ml Syringe IV 04/02/25 08:19 Q15MIN PRN BG <50 OR BG <70 & pt unresponsive Glucagon 1 mg 03/03/25 08:20 Glucagon Inj 1 Mg Vial IM Q15MIN PRN BG <70, and no IV access Heparin Sodium (Porcine) 7,500 unit 03/15/25 02:00 03/18/25 23:54 Heparin Sod Inj 5000 Unit/Ml Vial SC 03/29/25 01:59 Not Given Q8HR [facility] Insulin Human Lispro 0 unit 03/06/25 06:00 03/19/25 11:58 Insulin Lispro (Admelog) 1 Unit/0.01 Ml Unit SC 04/05/25 05:59 1 unit Q6H KOURTNEY Administration Protocol Magnesium Hydroxide 30 ml 02/27/25 09:24 Milk Of Magnesia Susp 30 Ml Udc PO 03/29/25 09:23 QDAY PRN CONSTIPATION Ondansetron HCl 4 mg 03/05/25 20:46 03/09/25 03:49 Ondansetron Inj 2 Mg/Ml Inj 2 Ml IV 04/04/25 20:45 4 mg Q6HR PRN Administration NAUSEA OR VOMITING Protocol Pantoprazole Sodium 40 mg 02/27/25 11:15 03/19/25 08:26 Pantoprazole Inj 40 Mg Vial IV 03/29/25 11:14 40 mg QDAY KOURTNEY Administration Rivaroxaban 20 mg 03/04/25 17:30 03/12/25 13:27 Rivaroxaban 10 Mg Tablet PO 04/03/25 17:29 Not Given WSUPPER KOURTNEY Plan 64-year-old male with significant past medical history of hypertension, diabetes mellitus, A-fib was admitted to the ICU on 02/27/2025 after coming in with altered mental status and shortness of breath, intubated for acute hypoxic respiratory failure and had suspected obesity hypoventilation syndrome/obstructive sleep apnea/pneumonia and acute kidney injury. He was extubated on 03/03 and downgraded then re-intubated on 03/06 due to confusion and tachypneia. He was then extubated and downgraded to the floor on 03/07. On 03/10, patient again had decreased mentation on the BiPAP so was reintubated and upgraded. Cardiology has been consulted for suspected heart failure. #Right congestive heart failure with preserved EF. #Severe BASIA/OHS. Echo on this admission showed poor quality images secondary to the patient's body habitus so was a technically limited study. Suspect chronic right heart failure in the setting of chronic obesity hypoventilation syndrome and obstructive sleep apnea. Currently appears to be more pulmonary component to respiratory failure than cardiac. Requiring ventilation support. -Echo 02/27/25: IVC appears to be dilated and also estimated RVSP also appears to be at least moderately elevated at 55 mmHg. 03/14/25: Will hold dirutics for now , he was given IV fluids yesterday. 03/15/25 : [place] catheter was placed by ICU team which showed PA pressure of more than 30s and wedge pressure was also high . started him on bumex drip . will continue the albumin . he is getting his peg tube today 03/16/25: ICU team tried another [place] catheter today which showed RA pressure of 25, PA pressure of 38, PCWP of 23. Plan is to continue Bumex for him. Cr stable at 2.5 03/17/2025: Net fluid balance -3350 cc. ICU team held Bumex due to significant electrolyte abnormalities, potassium 2.7. Once repleted Bumex drip will be resumed. Continue current management and monitor patient. 03/18/2025: net fluid balance -1650 , he received 1 dose of diamox yesterday. will continue to diures, he is off ventillor in blowby with PRN ventillator when he gets tired. 03/19/2025: no acute overnight event.Balance of -950 . ICU team put a swan catheter which showed he is adequately diressed for now, so bumex on hold for now. pending pegtube placement, its been difficult to do the procedure consedering his Rouxy history. #Atrial fibrillation, rate controlled. Patient notes positive history of afib. He had previously been on metoprolol succinate 100 mg BID. Currently appears rate-controlled in the 100s. CHADS-VASc score 4 Plan: - Metoprolol on hold in setting of right heart failure . -Resume Xarelto. -Continue amiodarone 200 mg qday. -Keep potassium >4.0 and mag >2.0. Rest of conditions to continue current management per primary team: #Acute hypoxic respiratory failure s/p tracheostomy. #Morbid obesity. #Community acquired pneumonia. #Elevated LFTs, resolved. #Hyperbilirubinemia, resolved. #History of type 2 diabetes. #Lactic acidosis, resolved. #KENIA on CKD. Discussed the patient with my attending Dr John. Shaina Newell [id number]
--- NOTE | 2025-03-19 13:44 | PC.SS ---
Update: Patient currently on blow-by. Dr. Kinney consulting. Plan is for possible JPEG placement. PICC line pending. Patient receiving IV antibiotics. Patient is not receiving pressor support.
[2025-03-19] MEDS: AMIODARONE HCL 200 MG TABLET PO (14:11)
--- NOTE | 2025-03-19 15:28 | PD.RESPRO ---
Documentation for date of: 03/19/25 Exam Vital Signs Temp Pulse Resp BP Pulse Ox O2 Del Method O2 Flow Rate 98.0 F 113 H 34 H 125/89 H 98 Blow-by 10 03/19/25 12:00 03/19/25 14:11 03/19/25 14:00 03/19/25 14:11 03/19/25 14:00 03/19/25 11:01 03/19/25 14:00 FiO2 40 03/19/25 14:00 Objective Labs 03/19/25 05:12 03/19/25 05:12 Labs: Laboratory Results - last 24 hr 03/18/25 03/19/25 03/19/25 17:18 05:00 05:12 WBC 10.5 RBC 4.12 L Hgb 11.8 L Hct 38.3 L MCV 93 MCH 28.6 MCHC 30.8 L RDW Std Deviation 48.2 H Plt Count 306 D Neut % (Auto) 74 Lymph % (Auto) 8 L [place] % (Auto) 14 H Eos % (Auto) 2 Baso % (Auto) 1 Neut # (Auto) 7.8 H Lymph # (Auto) 0.9 L [place] # (Auto) 1.4 H Eos # (Auto) 0.2 Baso # (Auto) 0.1 Immature Gran # (Auto) 0.12 H Absolute Nucleated RBC 0.00 Immature Gran % 1 H Nucleated RBC % 0 PT 13.8 H INR 1.3 APTT 30.5 Puncture Site Right Radial ABG pH 7.45 ABG pCO2 55 H ABG pO2 73 L D ABG HCO3 38 H ABG O2 Saturation 96 ABG Base Excess 12 H FiO2 40 Sodium 149 H 153 H Potassium 4.1 D 3.4 D Chloride 104 104 Carbon Dioxide 35.0 H 37.5 H Anion Gap 10 12 BUN 67 H 70 H Creatinine 2.4 H 2.5 H Estim Creat Clear Calc 51.6 L 49.5 L eGFR 29 L 28 L BUN/Creatinine Ratio 28 H 28 H Glucose 188 H 183 H Calculated Osmolality 320 H 329 H Calcium 8.8 8.8 Corrected Calcium 9.4 9.5 Phosphorus 2.8 3.0 Magnesium 1.9 Total Bilirubin 1.1 AST 30 ALT 19 Alkaline Phosphatase 106 B-Natriuretic Peptide 135 H Total Protein 5.9 Albumin 3.2 L 3.1 L Globulin 2.8 Albumin/Globulin Ratio 1.1 L ABG Interpretation ABG results: 02/27/25 02/28/25 03/01/25 06:55 04:57 04:39 ABG pH 7.27 L 7.37 D 7.41 ABG pCO2 57 H 48 44 ABG pO2 101 78 L D 69 L ABG HCO3 26 28 H 28 H ABG O2 Saturation 98 95 93 ABG Base Excess -2 2 3 VBG pH VBG pCO2 VBG pO2 VBG Base Excess 03/01/25 03/01/25 03/02/25 13:15 14:52 04:25 ABG pH Cancelled 7.41 7.45 ABG pCO2 Cancelled 45 42 ABG pO2 Cancelled 53 L* 66 L ABG HCO3 Cancelled 28 H 29 H ABG O2 Saturation Cancelled 85 L 92 ABG Base Excess Cancelled 3 5 H VBG pH VBG pCO2 VBG pO2 VBG Base Excess 03/03/25 03/05/25 03/05/25 04:40 16:30 16:55 ABG pH 7.45 Cancelled 7.34 L D ABG pCO2 43 Cancelled 72 H* D ABG pO2 72 L Cancelled 83 ABG HCO3 30 H Cancelled 38 H ABG O2 Saturation 94 Cancelled 95 ABG Base Excess 5 H Cancelled 9 H VBG pH VBG pCO2 VBG pO2 VBG Base Excess 03/05/25 03/06/25 03/06/25 23:36 01:48 05:22 ABG pH 7.37 7.34 L 7.52 H D ABG pCO2 67 H 74 H* 47 D ABG pO2 150 H D 88 D 160 H D ABG HCO3 38 H 40 H 38 H ABG O2 Saturation 99 H 96 100 H ABG Base Excess 10 H 11 H 13 H VBG pH VBG pCO2 VBG pO2 VBG Base Excess 03/06/25 03/07/25 03/07/25 17:10 05:00 14:03 ABG pH 7.46 H ABG pCO2 53 H ABG pO2 65 L D ABG HCO3 38 H ABG O2 Saturation 93 ABG Base Excess 12 H VBG pH 7.50 7.52 VBG pCO2 50 47 VBG pO2 70 H 61 H VBG Base Excess 13 H 14 H 03/09/25 03/09/25 03/09/25 08:17 10:25 17:29 ABG pH 7.25 L D 7.29 L 7.29 L ABG pCO2 93 H* D 85 H* 88 H* ABG pO2 81 L 57 L* D 85 D ABG HCO3 41 H 40 H 43 H ABG O2 Saturation 95 89 L 97 ABG Base Excess 10 H 10 H 12 H VBG pH VBG pCO2 VBG pO2 VBG Base Excess 03/09/25 03/10/25 03/10/25 23:24 07:17 11:25 ABG pH 7.32 L 7.28 L 7.31 L ABG pCO2 78 H* D 90 H* D 81 H* ABG pO2 69 L 47 L* D 63 L ABG HCO3 40 H 43 H 41 H ABG O2 Saturation 94 80 L 93 ABG Base Excess 11 H 12 H 11 H VBG pH VBG pCO2 VBG pO2 VBG Base Excess 03/10/25 03/11/25 03/12/25 16:56 04:19 04:42 ABG pH 7.40 7.48 H 7.43 ABG pCO2 66 H D 54 H D 59 H ABG pO2 68 L 67 L 77 L ABG HCO3 41 H 40 H 39 H ABG O2 Saturation 94 94 96 ABG Base Excess 13 H 15 H 12 H VBG pH VBG pCO2 VBG pO2 VBG Base Excess 03/13/25 03/14/25 03/15/25 04:32 04:25 04:37 ABG pH 7.47 H 7.46 H 7.41 ABG pCO2 53 H 50 H 56 H ABG pO2 60 L 70 L 69 L ABG HCO3 38 H 36 H 35 H ABG O2 Saturation 93 95 95 ABG Base Excess 13 H 10 H 9 H VBG pH VBG pCO2 VBG pO2 VBG Base Excess 03/16/25 03/16/25 03/17/25 04:54 09:53 04:35 ABG pH 7.45 7.48 H 7.47 H ABG pCO2 51 H 49 H 53 H ABG pO2 68 L 34 L* D 87 D ABG HCO3 35 H 37 H 38 H ABG O2 Saturation 95 67 L 97 ABG Base Excess 10 H 12 H 13 H VBG pH VBG pCO2 VBG pO2 VBG Base Excess 03/18/25 03/19/25 04:26 05:00 ABG pH 7.44 7.45 ABG pCO2 57 H 55 H ABG pO2 107 D 73 L D ABG HCO3 38 H 38 H ABG O2 Saturation 99 H 96 ABG Base Excess 12 H 12 H VBG pH VBG pCO2 VBG pO2 VBG Base Excess Quality Measures Quality Measures sepsis Possible source: pulmonary Blood cultures ordered: completed in ED Assessment & Plan Assessment Current Active Medications: Generic Name Dose Route Start Last Admin Trade Name Freq PRN Reason Stop Dose Admin Acetaminophen 650 mg 03/10/25 19:17 Acetaminophen 325 Mg Tablet PO 03/29/25 09:23 Q4HR PRN fever > 100.4 Al Hydrox/Mg Hydrox/Simethicone 30 ml 02/27/25 09:24 Mg Hyd/Al Hyd/Virgilio (Maalox Reg) Susp 30 Ml Udc PO 03/29/25 09:23 Q4HR PRN Heartburn or Upset Stomach Amiodarone HCl 200 mg 03/01/25 09:00 03/19/25 08:40 Amiodarone Hcl 200 Mg Tablet PO 03/31/25 08:59 Not Given QDAY KOURTNEY Bumetanide 2 mg 03/17/25 21:00 03/18/25 21:28 Bumetanide Inj 0.25 Mg/Ml Vial 4 Ml IVP 04/16/25 20:59 2 mg BID KOURTNEY Administration Dextrose 25 ml 03/03/25 08:20 Dextrose 50%-Water Inj 50 Ml Syringe IV 04/02/25 08:19 Q15MIN PRN BG 50-70 responsive npo pt Dextrose 50 ml 03/03/25 08:20 Dextrose 50%-Water Inj 50 Ml Syringe IV 04/02/25 08:19 Q15MIN PRN BG <50 OR BG <70 & pt unresponsive Glucagon 1 mg 03/03/25 08:20 Glucagon Inj 1 Mg Vial IM Q15MIN PRN BG <70, and no IV access Heparin Sodium (Porcine) 7,500 unit 03/15/25 02:00 03/19/25 13:35 Heparin Sod Inj 5000 Unit/Ml Vial SC 03/29/25 01:59 Not Given Q8HR [facility] Insulin Human Lispro 0 unit 03/06/25 06:00 03/19/25 11:58 Insulin Lispro (Admelog) 1 Unit/0.01 Ml Unit SC 04/05/25 05:59 1 unit Q6H KOURTNEY Administration Protocol Magnesium Hydroxide 30 ml 02/27/25 09:24 Milk Of Magnesia Susp 30 Ml Udc PO 03/29/25 09:23 QDAY PRN CONSTIPATION Ondansetron HCl 4 mg 03/05/25 20:46 03/09/25 03:49 Ondansetron Inj 2 Mg/Ml Inj 2 Ml IV 04/04/25 20:45 4 mg Q6HR PRN Administration NAUSEA OR VOMITING Protocol Pantoprazole Sodium 40 mg 02/27/25 11:15 03/19/25 08:26 Pantoprazole Inj 40 Mg Vial IV 03/29/25 11:14 40 mg QDAY KOURTNEY Administration Rivaroxaban 20 mg 03/04/25 17:30 03/12/25 13:27 Rivaroxaban 10 Mg Tablet PO 04/03/25 17:29 Not Given WSUPPER [facility] Attending Provider Attestation/Addendum I attest that I was physically present for the evaluation, physical examination, lab and imaging review of the patient with the residents. I discussed the case with the residents and agree with the findings and plans of care as documented above. Cortez Alicia MD
--- NOTE | 2025-03-19 17:57 | ESPR_ITS ---
Documentation for date of: 03/19/25 Subjective - Hospitalist Subjective Interval history: Patient is a 64 years old male with past medical history of diabetes, hypertension, A-fib who was initially admitted in the ICU on 02/27/2025 for altered mental status and respiratory failure requiring intubation and mechanical ventilation. Patient improved and transferred to medical floor, again went into respiratory failure. She was intubated 3 times total during this hospitalization. Since patient needed multiple intubation and has been dependent on ventilator, patient underwent tracheostomy with general surgery on 03/14/2025. IR was consulted for placement of J-tube for continuation of nutrition, unable to perform. General surgery was also consulted for jejunostomy, unable to perform due to past history of Diego-en-Y bypass. Patient failed swallow evaluation today, GI is consulted for NG tube placement. Unable to perform PICC line in IR, Dr. Banda will attempt to do it at bedside. He has been on blow-by throughout the day, tolerating well. Bumex IV has been on hold as patient is not having oral intake. Completed his antibiotics course. At bedside, patient is alert and awake, able to follow command and nods yes/no. Denies any complaints, saturating well on blow-by. Review of Systems Review of Systems ROS Unobtainable: due to endotracheal tube Exam Vital Signs Temp Pulse Resp BP Pulse Ox O2 Del Method O2 Flow Rate 97.4 F 104 H 14 138/89 H 95 Mechanical Ventilation 10 03/20/25 04:00 03/20/25 10:50 03/20/25 10:50 03/20/25 09:58 03/20/25 10:50 03/20/25 04:00 03/20/25 10:50 FiO2 40 03/20/25 10:50 Narrative General: Alert and appears oriented, comfortable, saturating well HEENT: EOMI, PERRLA, trachestomy tube in place Cardiovascular:RRR, S1 and S2 without murmur Pulmonary: Clear to ausculate, no wheeze or crackles GI: No tenderness, guarding, rigidity, soft, Bowel sounds present Extremities: Bilateral lower limb edema Neuro: Alert, able to follow commands, able to move limbs Objective - Hospitalist Labs Diagram: 03/20/25 04:36 03/20/25 15:10 Labs: Laboratory Results - last 24 hr 03/20/25 03/20/25 04:36 15:10 WBC 10.9 H RBC 4.09 L Hgb 11.6 L Hct 37.5 L MCV 92 MCH 28.4 MCHC 30.9 L RDW Std Deviation 48.9 H Plt Count 274 D Neut % (Auto) 74 Lymph % (Auto) 9 L [place] % (Auto) 13 H Eos % (Auto) 3 Baso % (Auto) 1 Neut # (Auto) 8.1 H Lymph # (Auto) 0.9 L [place] # (Auto) 1.4 H Eos # (Auto) 0.3 Baso # (Auto) 0.1 Immature Gran # (Auto) 0.12 H Absolute Nucleated RBC 0.00 Immature Gran % 1 H Nucleated RBC % 0 PT 13.4 H INR 1.2 APTT 30.2 Sodium 153 H 150 H Potassium 3.4 3.8 Chloride 107 106 Carbon Dioxide 38.7 H 37.9 H Anion Gap 7 6 L BUN 71 H 68 H Creatinine 2.6 H 2.5 H Estim Creat Clear Calc 47.0 L 48.8 L eGFR 27 L 28 L BUN/Creatinine Ratio 27 H 27 H Glucose 184 H 202 H Calculated Osmolality 329 H 323 H Calcium 8.8 8.8 Corrected Calcium 9.4 9.4 Phosphorus 3.6 3.6 Magnesium 2.0 Total Bilirubin 0.9 AST 30 ALT 18 Alkaline Phosphatase 106 B-Natriuretic Peptide 226 H Total Protein 5.9 Albumin 3.2 L 3.3 L Globulin 2.7 Albumin/Globulin Ratio 1.2 ABG Interpretation ABG results: 02/27/25 02/28/25 03/01/25 06:55 04:57 04:39 ABG pH 7.27 L 7.37 D 7.41 ABG pCO2 57 H 48 44 ABG pO2 101 78 L D 69 L ABG HCO3 26 28 H 28 H ABG O2 Saturation 98 95 93 ABG Base Excess -2 2 3 VBG pH VBG pCO2 VBG pO2 VBG Base Excess 03/01/25 03/01/25 03/02/25 13:15 14:52 04:25 ABG pH Cancelled 7.41 7.45 ABG pCO2 Cancelled 45 42 ABG pO2 Cancelled 53 L* 66 L ABG HCO3 Cancelled 28 H 29 H ABG O2 Saturation Cancelled 85 L 92 ABG Base Excess Cancelled 3 5 H VBG pH VBG pCO2 VBG pO2 VBG Base Excess 03/03/25 03/05/25 03/05/25 04:40 16:30 16:55 ABG pH 7.45 Cancelled 7.34 L D ABG pCO2 43 Cancelled 72 H* D ABG pO2 72 L Cancelled 83 ABG HCO3 30 H Cancelled 38 H ABG O2 Saturation 94 Cancelled 95 ABG Base Excess 5 H Cancelled 9 H VBG pH VBG pCO2 VBG pO2 VBG Base Excess 03/05/25 03/06/25 03/06/25 23:36 01:48 05:22 ABG pH 7.37 7.34 L 7.52 H D ABG pCO2 67 H 74 H* 47 D ABG pO2 150 H D 88 D 160 H D ABG HCO3 38 H 40 H 38 H ABG O2 Saturation 99 H 96 100 H ABG Base Excess 10 H 11 H 13 H VBG pH VBG pCO2 VBG pO2 VBG Base Excess 03/06/25 03/07/25 03/07/25 17:10 05:00 14:03 ABG pH 7.46 H ABG pCO2 53 H ABG pO2 65 L D ABG HCO3 38 H ABG O2 Saturation 93 ABG Base Excess 12 H VBG pH 7.50 7.52 VBG pCO2 50 47 VBG pO2 70 H 61 H VBG Base Excess 13 H 14 H 03/09/25 03/09/25 03/09/25 08:17 10:25 17:29 ABG pH 7.25 L D 7.29 L 7.29 L ABG pCO2 93 H* D 85 H* 88 H* ABG pO2 81 L 57 L* D 85 D ABG HCO3 41 H 40 H 43 H ABG O2 Saturation 95 89 L 97 ABG Base Excess 10 H 10 H 12 H VBG pH VBG pCO2 VBG pO2 VBG Base Excess 03/09/25 03/10/25 03/10/25 23:24 07:17 11:25 ABG pH 7.32 L 7.28 L 7.31 L ABG pCO2 78 H* D 90 H* D 81 H* ABG pO2 69 L 47 L* D 63 L ABG HCO3 40 H 43 H 41 H ABG O2 Saturation 94 80 L 93 ABG Base Excess 11 H 12 H 11 H VBG pH VBG pCO2 VBG pO2 VBG Base Excess 03/10/25 03/11/25 03/12/25 16:56 04:19 04:42 ABG pH 7.40 7.48 H 7.43 ABG pCO2 66 H D 54 H D 59 H ABG pO2 68 L 67 L 77 L ABG HCO3 41 H 40 H 39 H ABG O2 Saturation 94 94 96 ABG Base Excess 13 H 15 H 12 H VBG pH VBG pCO2 VBG pO2 VBG Base Excess 03/13/25 03/14/25 03/15/25 04:32 04:25 04:37 ABG pH 7.47 H 7.46 H 7.41 ABG pCO2 53 H 50 H 56 H ABG pO2 60 L 70 L 69 L ABG HCO3 38 H 36 H 35 H ABG O2 Saturation 93 95 95 ABG Base Excess 13 H 10 H 9 H VBG pH VBG pCO2 VBG pO2 VBG Base Excess 03/16/25 03/16/25 03/17/25 04:54 09:53 04:35 ABG pH 7.45 7.48 H 7.47 H ABG pCO2 51 H 49 H 53 H ABG pO2 68 L 34 L* D 87 D ABG HCO3 35 H 37 H 38 H ABG O2 Saturation 95 67 L 97 ABG Base Excess 10 H 12 H 13 H VBG pH VBG pCO2 VBG pO2 VBG Base Excess 03/18/25 03/19/25 04:26 05:00 ABG pH 7.44 7.45 ABG pCO2 57 H 55 H ABG pO2 107 D 73 L D ABG HCO3 38 H 38 H ABG O2 Saturation 99 H 96 ABG Base Excess 12 H 12 H VBG pH VBG pCO2 VBG pO2 VBG Base Excess Assessment & Plan Assessment: 64 years old male with history of diabetes, hypertension, A-fib being managed in ICU for acute on chronic hypoxic and hypercapnic respiratory failure on mechanical ventilator. Underwent tracheostomy currently on blow-by, transferred to medical floor for further management. #Acute on chronic hypoxic and hypercapnic respiratory failure #Obesity hypoventilation syndrome #Ostructive sleep apnea #Community-acquired pneumonia, Enterobacter [place] #Right diastolic CHF, improved Patient was intubated 3 times with respiratory failure Tracheostomy placed on 03/14/2025 with general surgery. Echo could not visualize all chambers with limited ability to determine patient's ejection fraction. [place] 03/15 showed elevated RAP 25 PAP 38 PCWP 23, improved subsequently Completed antibiotics course Continues to be on blow-by Patient has not received oral intake for last 3 days, we will continue to hold off on Bumex Daily weights, strict WILLIE #Dysphagia #Tracheostomy J-tube could not be placed with IR and general surgery PEG tube could not be placed with GI PICC line placement has been ordered to start patient on TPN/PPN Gastroenterology on board, plan to reinsert the NG tube #Acute kidney injury Patient possibly starting to get dehydrated Received 500 cc of LR bolus We will continue to monitor his kidney function closely #Hypernatremia Free water deficit 4.2 L for goal Na 145 Patient was receiving free water flushes but held as NG tube could not be placed We will resume free water flushes as soon as NGT can be placed #A-fib [id number] score of 3 points indicating 3.2% risk of stroke per year We will continue with amiodarone oral and hold anticoagulation for PICC line placement tomorrow #Morbid obesity #Diabetes mellitus On insulin regimen Hypoglycemia protocol in place #Normocytic Anemia Likely anemia of chronic disease, hemoglobin stable at 11.6 We will continue to monitor with daily CBC DVT prophylaxis: Heparin GI prophylaxis: Protonix Diet: NPO CODE STATUS: Full code Cortez Alicia MD Time Spent with Patient Time: Total time spent is greater than 50% in coordination of care (as documented) at patient's floor/unit and/or counseling patient: Time with patient: Greater than 35 minutes Reason for Continued Stay Reason for continued stay: acute renal failure and mechanical ventilation Quality Measures Quality Measures sepsis Current suspected stage: ruled out Possible source: pulmonary Blood cultures ordered: completed in ED Antibiotic ordered: No Advance care planning discussed with:: patient
--- NOTE | 2025-03-19 19:52 | PD.RESEVENT ---
Documentation for date of: 03/19/25 Event Note Event Note: A 64-year-old male patient with past medical history of diabetes mellitus type 2, hypertension, A-fib, morbid obesity, was admitted due to altered mental status, shortness of breath, acute hypoxic respiratory failure, patient was intubated and admitted to the ICU. He was found to have pneumonia, acute kidney injury, newly diagnosed CHF. Patient was extubated on 07 March however on 10 March patient has decreased mentation and was intubated again. Today patient seems to be stable and was downgraded to our care. - Patient's plan and care discussed with my attending, Dr. Lorri Bay MD Internal Medicine PGY-2
--- NOTE | 2025-03-19 20:17 | PD.IMPROG ---
Documentation for date of: 03/19/25 Subjective Subjective Interval history: Case discussed with internal medicine team for placement of a NGT As well as case discussed with Dr. Kinney and told him my endoscopic findings in the setting of Diego-en-Y gastrojejunostomy and a very small gastric remnant Exam Vital Signs Temp Pulse Resp BP Pulse Ox O2 Del Method O2 Flow Rate 98.5 F 100 24 H 129/89 H 96 Blow-by 10 03/19/25 16:00 03/19/25 18:30 03/19/25 18:30 03/19/25 18:00 03/19/25 18:30 03/19/25 11:01 03/19/25 18:30 FiO2 40 03/19/25 18:30 Objective Labs 03/19/25 05:12 03/19/25 05:12 Labs: Laboratory Results - last 24 hr 03/19/25 03/19/25 05:00 05:12 WBC 10.5 RBC 4.12 L Hgb 11.8 L Hct 38.3 L MCV 93 MCH 28.6 MCHC 30.8 L RDW Std Deviation 48.2 H Plt Count 306 D Neut % (Auto) 74 Lymph % (Auto) 8 L [place] % (Auto) 14 H Eos % (Auto) 2 Baso % (Auto) 1 Neut # (Auto) 7.8 H Lymph # (Auto) 0.9 L [place] # (Auto) 1.4 H Eos # (Auto) 0.2 Baso # (Auto) 0.1 Immature Gran # (Auto) 0.12 H Absolute Nucleated RBC 0.00 Immature Gran % 1 H Nucleated RBC % 0 PT 13.8 H INR 1.3 APTT 30.5 Puncture Site Right Radial ABG pH 7.45 ABG pCO2 55 H ABG pO2 73 L D ABG HCO3 38 H ABG O2 Saturation 96 ABG Base Excess 12 H FiO2 40 Sodium 153 H Potassium 3.4 D Chloride 104 Carbon Dioxide 37.5 H Anion Gap 12 BUN 70 H Creatinine 2.5 H Estim Creat Clear Calc 49.5 L eGFR 28 L BUN/Creatinine Ratio 28 H Glucose 183 H Calculated Osmolality 329 H Calcium 8.8 Corrected Calcium 9.5 Phosphorus 3.0 Magnesium 1.9 Total Bilirubin 1.1 AST 30 ALT 19 Alkaline Phosphatase 106 B-Natriuretic Peptide 135 H Total Protein 5.9 Albumin 3.1 L Globulin 2.8 Albumin/Globulin Ratio 1.1 L Impressions Impression: # Anatomical issue precluding endoscopic placement of a gastrostomy tube Will place NGT for temporary addressing the concern for feeding as well as giving her medications ABG Interpretation ABG results: 02/27/25 02/28/25 03/01/25 06:55 04:57 04:39 ABG pH 7.27 L 7.37 D 7.41 ABG pCO2 57 H 48 44 ABG pO2 101 78 L D 69 L ABG HCO3 26 28 H 28 H ABG O2 Saturation 98 95 93 ABG Base Excess -2 2 3 VBG pH VBG pCO2 VBG pO2 VBG Base Excess 03/01/25 03/01/25 03/02/25 13:15 14:52 04:25 ABG pH Cancelled 7.41 7.45 ABG pCO2 Cancelled 45 42 ABG pO2 Cancelled 53 L* 66 L ABG HCO3 Cancelled 28 H 29 H ABG O2 Saturation Cancelled 85 L 92 ABG Base Excess Cancelled 3 5 H VBG pH VBG pCO2 VBG pO2 VBG Base Excess 03/03/25 03/05/25 03/05/25 04:40 16:30 16:55 ABG pH 7.45 Cancelled 7.34 L D ABG pCO2 43 Cancelled 72 H* D ABG pO2 72 L Cancelled 83 ABG HCO3 30 H Cancelled 38 H ABG O2 Saturation 94 Cancelled 95 ABG Base Excess 5 H Cancelled 9 H VBG pH VBG pCO2 VBG pO2 VBG Base Excess 03/05/25 03/06/25 03/06/25 23:36 01:48 05:22 ABG pH 7.37 7.34 L 7.52 H D ABG pCO2 67 H 74 H* 47 D ABG pO2 150 H D 88 D 160 H D ABG HCO3 38 H 40 H 38 H ABG O2 Saturation 99 H 96 100 H ABG Base Excess 10 H 11 H 13 H VBG pH VBG pCO2 VBG pO2 VBG Base Excess 03/06/25 03/07/25 03/07/25 17:10 05:00 14:03 ABG pH 7.46 H ABG pCO2 53 H ABG pO2 65 L D ABG HCO3 38 H ABG O2 Saturation 93 ABG Base Excess 12 H VBG pH 7.50 7.52 VBG pCO2 50 47 VBG pO2 70 H 61 H VBG Base Excess 13 H 14 H 03/09/25 03/09/25 03/09/25 08:17 10:25 17:29 ABG pH 7.25 L D 7.29 L 7.29 L ABG pCO2 93 H* D 85 H* 88 H* ABG pO2 81 L 57 L* D 85 D ABG HCO3 41 H 40 H 43 H ABG O2 Saturation 95 89 L 97 ABG Base Excess 10 H 10 H 12 H VBG pH VBG pCO2 VBG pO2 VBG Base Excess 03/09/25 03/10/25 03/10/25 23:24 07:17 11:25 ABG pH 7.32 L 7.28 L 7.31 L ABG pCO2 78 H* D 90 H* D 81 H* ABG pO2 69 L 47 L* D 63 L ABG HCO3 40 H 43 H 41 H ABG O2 Saturation 94 80 L 93 ABG Base Excess 11 H 12 H 11 H VBG pH VBG pCO2 VBG pO2 VBG Base Excess 03/10/25 03/11/25 03/12/25 16:56 04:19 04:42 ABG pH 7.40 7.48 H 7.43 ABG pCO2 66 H D 54 H D 59 H ABG pO2 68 L 67 L 77 L ABG HCO3 41 H 40 H 39 H ABG O2 Saturation 94 94 96 ABG Base Excess 13 H 15 H 12 H VBG pH VBG pCO2 VBG pO2 VBG Base Excess 03/13/25 03/14/25 03/15/25 04:32 04:25 04:37 ABG pH 7.47 H 7.46 H 7.41 ABG pCO2 53 H 50 H 56 H ABG pO2 60 L 70 L 69 L ABG HCO3 38 H 36 H 35 H ABG O2 Saturation 93 95 95 ABG Base Excess 13 H 10 H 9 H VBG pH VBG pCO2 VBG pO2 VBG Base Excess 03/16/25 03/16/25 03/17/25 04:54 09:53 04:35 ABG pH 7.45 7.48 H 7.47 H ABG pCO2 51 H 49 H 53 H ABG pO2 68 L 34 L* D 87 D ABG HCO3 35 H 37 H 38 H ABG O2 Saturation 95 67 L 97 ABG Base Excess 10 H 12 H 13 H VBG pH VBG pCO2 VBG pO2 VBG Base Excess 03/18/25 03/19/25 04:26 05:00 ABG pH 7.44 7.45 ABG pCO2 57 H 55 H ABG pO2 107 D 73 L D ABG HCO3 38 H 38 H ABG O2 Saturation 99 H 96 ABG Base Excess 12 H 12 H VBG pH VBG pCO2 VBG pO2 VBG Base Excess Assessment & Plan A&P Narrative # Evaluation for placement of a PEG tube I have tentatively schedule the patient for tomorrow afternoon It is going to be a technical challenge as patient is morbidly obese and there may not be a long enough catheter to intubate the cavity of the stomach Nonetheless it should be given for endoscopic placement of the PEG tube Other medical problems include Acute hypoxic respiratory failure requiring initially endotracheal intubation now tracheostomy and mechanical ventilation Chronic atrial fibrillation Diabetes mellitus type 2 Essential hypertension Thank you very much for the opportunity to participate in the care of this patient Time Spent With Patient Time: Total time spent is greater than 50% in coordination of care (as documented) at patient's floor/unit and/or counseling patient:
[2025-03-19] MEDS: HEPARIN SOD INJ 5000 UNIT/ML VIAL 7500 UNIT SC (21:15)
--- NOTE | 2025-03-19 21:35 | XR_ITS ---
Examination: Abdomen AP single view Technique: AP portable supine abdomen, single view Exam date and time: March 19, 2025 10:20 PM INDICATIONS: Post orogastric tube placement FINDINGS: Orogastric tube in the stomach satisfactory position No free air IMPRESSION: Orogastric tube in the stomach satisfactory position
[2025-03-20] VITALS (22 sets, daily range): BP systolic 116–175; BP diastolic 82–111; PULSE 88–120; RESP 3–38; TEMP 36.3–36.6; O2SAT 91–100; BMI 68.3
[2025-03-20] MEDS: INSULIN LISPRO (AdmeLOG) 1 UNIT/0.01 ML UNIT SC ×4 (00:51→18:32)
[2025-03-20 06:20] LABS: Basophils # (Auto) 0.1 Thou/mm3 (0.0-0.2); Basophils % (Auto) 1 % (0-2.5); Eosinophils # (Auto) 0.3 Thou/mm3 (0.0-0.5); Eosinophils % (Auto) 3 % (0-10); Hematocrit 37.5 % (41.0-53.0); Hemoglobin 11.6 g/dL (13.5-16.0); Immature Granulocytes % (Auto) 1 % (0-0); Immature Granulocytes Auto 0.12 Thou/mm3 (0.00-0.00); Lymphocytes # (Auto) 0.9 Thou/mm3 (1.0-4.8); Lymphocytes % (Auto) 9 % (10-50); Mean Corpuscular HGB Conc 30.9 g/dl (31.0-37.0); Mean Corpuscular Hemoglobin 28.4 pg (25.0-35.0); Mean Corpuscular Volume 92 fL (80-100); Monocytes # (Auto) 1.4 Thou/mm3 (0.0-0.8); Monocytes % (Auto) 13 % (0-12); Neutrophils # (Auto) 8.1 Thou/mm3 (1.8-7.7); Neutrophils % (Auto) 74 % (37-80); Nucleated Red Blood Cell % 0 /100 WBC (0); Platelet Count 274 Thou/mm3 (140-440); RDW Standard Deviation 48.9 fL (35.1-43.9); Red Blood Count 4.09 Miln/mm3 (4.50-5.90); White Blood Count 10.9 Thou/mm3 (3.8-10.6)
[2025-03-20 07:14] LABS: Alanine Aminotransferase 18 U/L (10-49); Albumin, Serum 3.2 gm/dL (3.4-4.8); Albumin/Globulin Ratio 1.2 (1.2-2.2); Alkaline Phosphatase 106 U/L (46-116); Anion Gap 7 (7-16); Aspartate Amino Transferase 30 U/L (0-34); BUN/Creatinine Ratio 27 Ratio (12-20); Bilirubin,Total 0.9 mg/dL (0.3-1.2); Blood Urea Nitrogen 71 mg/dL (9-23); Calcium 8.8 mg/dL (8.3-10.6); Calcium (Corrected) 9.4 mg/dL (8.5-10.1); Carbon Dioxide 38.7 mMol/L (20.0-31.0); Chloride 107 mMol/L (98-107); Creatinine (Component) 2.6 mg/dL (0.6-1.3); Globulin 2.7 gm/dL (2.3-3.5); Glucose 184 mg/dL (74-106); Osmolality,Calculated 329 (275-295); Phosphorous 3.6 mg/dL (2.4-5.1); Potassium 3.4 mMol/L (3.4-5.1); Sodium 153 mMol/L (136-145); Total Protein 5.9 gm/dL (5.7-8.2); eGFR 27 See Note
[2025-03-20 07:15] LABS: INR 1.2 (0.9-1.3); Partial Thromboplastin Time 30.2 Seconds (22.0-36.0); Prothrombin Time 13.4 Seconds (9.0-12.2)
[2025-03-20 07:26] LABS: B-Type Natriuretic Peptide 226 pg/mL (0-100)
[2025-03-20] MEDS: AMIODARONE HCL 200 MG TABLET PO (09:58)
[2025-03-20] MEDS: PANTOPRAZOLE INJ 40 MG VIAL IV (09:59)
--- NOTE | 2025-03-20 09:59 | ESPR_ITS ---
<Statement entered by Lorri Bay MD - 03/21/25 17:22> Patient was seen and examined at bedside. Agree on the most of the assessment and plan on this note. - Patient's plan and care discussed with my attending, Dr. Coco Bay MD Internal Medicine PGY-2 Documentation for date of: 03/20/25 Subjective Subjective Interval history: Patient examined at bedside today. No acute overnight events. Patient will be resumed on tube feeds via NG tube. Patient will also go for PICC line placement for TPN at this point. Will see how patient improves with feeding. No other complaints at this time. Exam Vital Signs Temp Pulse Resp BP Pulse Ox O2 Del Method O2 Flow Rate 97.4 F 108 H 26 H 122/82 99 Mechanical Ventilation 10 03/20/25 04:00 03/20/25 06:30 03/20/25 04:00 03/20/25 06:30 03/20/25 06:30 03/20/25 04:00 03/19/25 20:00 FiO2 40 03/20/25 06:30 Narrative Exam General: AAOx3, in mild distress, severely morbidly obese HEENT: dry mucous membranes, conjunctiva clear, EOMI, PERRLA, trachestomy Cardiovascular:Ejection systolic murmur, radial pulses +2 bilat, irregularly irregular, ap Pulmonary: FiO2 40, Rate 10, PEEP 8, TV 420, mechanical breath sounds GI: No tenderness to light or deep palpitation, no guarding, rigidity, rebound tenderness or distension Extremities: Pitting edema in lower extremities bilaterally, dorsalis pedis pulses +2 bilaterally Neuro: AAOx3, no focal motor or sensory deficits in the UE or LE bilat Objective Labs 03/21/25 05:50 03/21/25 15:00 Labs: Laboratory Results - last 24 hr 03/20/25 04:36 WBC 10.9 H RBC 4.09 L Hgb 11.6 L Hct 37.5 L MCV 92 MCH 28.4 MCHC 30.9 L RDW Std Deviation 48.9 H Plt Count 274 D Neut % (Auto) 74 Lymph % (Auto) 9 L Mobile % (Auto) 13 H Eos % (Auto) 3 Baso % (Auto) 1 Neut # (Auto) 8.1 H Lymph # (Auto) 0.9 L Mobile # (Auto) 1.4 H Eos # (Auto) 0.3 Baso # (Auto) 0.1 Immature Gran # (Auto) 0.12 H Absolute Nucleated RBC 0.00 Immature Gran % 1 H Nucleated RBC % 0 PT 13.4 H INR 1.2 APTT 30.2 Sodium 153 H Potassium 3.4 Chloride 107 Carbon Dioxide 38.7 H Anion Gap 7 BUN 71 H Creatinine 2.6 H Estim Creat Clear Calc 47.0 L eGFR 27 L BUN/Creatinine Ratio 27 H Glucose 184 H Calculated Osmolality 329 H Calcium 8.8 Corrected Calcium 9.4 Phosphorus 3.6 Magnesium 2.0 Total Bilirubin 0.9 AST 30 ALT 18 Alkaline Phosphatase 106 B-Natriuretic Peptide 226 H Total Protein 5.9 Albumin 3.2 L Globulin 2.7 Albumin/Globulin Ratio 1.2 ABG Interpretation ABG results: 02/27/25 02/28/25 03/01/25 06:55 04:57 04:39 ABG pH 7.27 L 7.37 D 7.41 ABG pCO2 57 H 48 44 ABG pO2 101 78 L D 69 L ABG HCO3 26 28 H 28 H ABG O2 Saturation 98 95 93 ABG Base Excess -2 2 3 VBG pH VBG pCO2 VBG pO2 VBG Base Excess 03/01/25 03/01/25 03/02/25 13:15 14:52 04:25 ABG pH Cancelled 7.41 7.45 ABG pCO2 Cancelled 45 42 ABG pO2 Cancelled 53 L* 66 L ABG HCO3 Cancelled 28 H 29 H ABG O2 Saturation Cancelled 85 L 92 ABG Base Excess Cancelled 3 5 H VBG pH VBG pCO2 VBG pO2 VBG Base Excess 03/03/25 03/05/25 03/05/25 04:40 16:30 16:55 ABG pH 7.45 Cancelled 7.34 L D ABG pCO2 43 Cancelled 72 H* D ABG pO2 72 L Cancelled 83 ABG HCO3 30 H Cancelled 38 H ABG O2 Saturation 94 Cancelled 95 ABG Base Excess 5 H Cancelled 9 H VBG pH VBG pCO2 VBG pO2 VBG Base Excess 03/05/25 03/06/25 03/06/25 23:36 01:48 05:22 ABG pH 7.37 7.34 L 7.52 H D ABG pCO2 67 H 74 H* 47 D ABG pO2 150 H D 88 D 160 H D ABG HCO3 38 H 40 H 38 H ABG O2 Saturation 99 H 96 100 H ABG Base Excess 10 H 11 H 13 H VBG pH VBG pCO2 VBG pO2 VBG Base Excess 03/06/25 03/07/25 03/07/25 17:10 05:00 14:03 ABG pH 7.46 H ABG pCO2 53 H ABG pO2 65 L D ABG HCO3 38 H ABG O2 Saturation 93 ABG Base Excess 12 H VBG pH 7.50 7.52 VBG pCO2 50 47 VBG pO2 70 H 61 H VBG Base Excess 13 H 14 H 03/09/25 03/09/25 03/09/25 08:17 10:25 17:29 ABG pH 7.25 L D 7.29 L 7.29 L ABG pCO2 93 H* D 85 H* 88 H* ABG pO2 81 L 57 L* D 85 D ABG HCO3 41 H 40 H 43 H ABG O2 Saturation 95 89 L 97 ABG Base Excess 10 H 10 H 12 H VBG pH VBG pCO2 VBG pO2 VBG Base Excess 03/09/25 03/10/25 03/10/25 23:24 07:17 11:25 ABG pH 7.32 L 7.28 L 7.31 L ABG pCO2 78 H* D 90 H* D 81 H* ABG pO2 69 L 47 L* D 63 L ABG HCO3 40 H 43 H 41 H ABG O2 Saturation 94 80 L 93 ABG Base Excess 11 H 12 H 11 H VBG pH VBG pCO2 VBG pO2 VBG Base Excess 03/10/25 03/11/25 03/12/25 16:56 04:19 04:42 ABG pH 7.40 7.48 H 7.43 ABG pCO2 66 H D 54 H D 59 H ABG pO2 68 L 67 L 77 L ABG HCO3 41 H 40 H 39 H ABG O2 Saturation 94 94 96 ABG Base Excess 13 H 15 H 12 H VBG pH VBG pCO2 VBG pO2 VBG Base Excess 03/13/25 03/14/25 03/15/25 04:32 04:25 04:37 ABG pH 7.47 H 7.46 H 7.41 ABG pCO2 53 H 50 H 56 H ABG pO2 60 L 70 L 69 L ABG HCO3 38 H 36 H 35 H ABG O2 Saturation 93 95 95 ABG Base Excess 13 H 10 H 9 H VBG pH VBG pCO2 VBG pO2 VBG Base Excess 03/16/25 03/16/25 03/17/25 04:54 09:53 04:35 ABG pH 7.45 7.48 H 7.47 H ABG pCO2 51 H 49 H 53 H ABG pO2 68 L 34 L* D 87 D ABG HCO3 35 H 37 H 38 H ABG O2 Saturation 95 67 L 97 ABG Base Excess 10 H 12 H 13 H VBG pH VBG pCO2 VBG pO2 VBG Base Excess 03/18/25 03/19/25 04:26 05:00 ABG pH 7.44 7.45 ABG pCO2 57 H 55 H ABG pO2 107 D 73 L D ABG HCO3 38 H 38 H ABG O2 Saturation 99 H 96 ABG Base Excess 12 H 12 H VBG pH VBG pCO2 VBG pO2 VBG Base Excess Quality Measures Quality Measures sepsis Current suspected stage: ruled out Possible source: pulmonary Blood cultures ordered: completed in ED Antibiotic ordered: No Advance care planning discussed with:: patient Assessment & Plan Assessment Current Active Medications: Generic Name Dose Route Start Last Admin Trade Name Freq PRN Reason Stop Dose Admin Acetaminophen 650 mg 03/10/25 19:17 Acetaminophen 325 Mg Tablet PO 03/29/25 09:23 Q4HR PRN fever > 100.4 Al Hydrox/Mg Hydrox/Simethicone 30 ml 02/27/25 09:24 Mg Hyd/Al Hyd/Virgilio (Maalox Reg) Susp 30 Ml Udc PO 03/29/25 09:23 Q4HR PRN Heartburn or Upset Stomach Amiodarone HCl 200 mg 03/01/25 09:00 03/19/25 08:40 Amiodarone Hcl 200 Mg Tablet PO 03/31/25 08:59 Not Given QDAY KOURTNEY Bumetanide 2 mg 03/17/25 21:00 03/18/25 21:28 Bumetanide Inj 0.25 Mg/Ml Vial 4 Ml IVP 04/16/25 20:59 2 mg BID KOURTNEY Administration Dextrose 25 ml 03/03/25 08:20 Dextrose 50%-Water Inj 50 Ml Syringe IV 04/02/25 08:19 Q15MIN PRN BG 50-70 responsive npo pt Dextrose 50 ml 03/03/25 08:20 Dextrose 50%-Water Inj 50 Ml Syringe IV 04/02/25 08:19 Q15MIN PRN BG <50 OR BG <70 & pt unresponsive Glucagon 1 mg 03/03/25 08:20 Glucagon Inj 1 Mg Vial IM Q15MIN PRN BG <70, and no IV access Heparin Sodium (Porcine) 7,500 unit 03/15/25 02:00 03/20/25 05:37 Heparin Sod Inj 5000 Unit/Ml Vial SC 03/29/25 01:59 Not Given Q8HR KOURTNEY Potassium Chloride 10 meq in 100 mls @ 100 mls/hr 03/20/25 09:48 Kcl Ivpb IV 03/20/25 13:47 Q1H KOURTNEY Insulin Human Lispro 0 unit 03/06/25 06:00 03/20/25 05:41 Insulin Lispro (Admelog) 1 Unit/0.01 Ml Unit SC 04/05/25 05:59 1 unit Q6H KOURTNEY Administration Protocol Magnesium Hydroxide 30 ml 02/27/25 09:24 Milk Of Magnesia Susp 30 Ml Udc PO 03/29/25 09:23 QDAY PRN CONSTIPATION Ondansetron HCl 4 mg 03/05/25 20:46 03/09/25 03:49 Ondansetron Inj 2 Mg/Ml Inj 2 Ml IV 04/04/25 20:45 4 mg Q6HR PRN Administration NAUSEA OR VOMITING Protocol Pantoprazole Sodium 40 mg 02/27/25 11:15 03/19/25 08:26 Pantoprazole Inj 40 Mg Vial IV 03/29/25 11:14 40 mg QDAY KOURTNEY Administration Rivaroxaban 20 mg 03/04/25 17:30 03/12/25 13:27 Rivaroxaban 10 Mg Tablet PO 04/03/25 17:29 Not Given WSUPPER KOURTNEY Plan Assessment 64-year-old male with past medical history of DM2, hypertension, A-fib, and Jehova's witness was admitted to the ICU on 02/27/2025 for shock and acute hypoxic respiratory failure. #Right diastolic CHF, improved Echo could not visualize all chambers with limited ability to determine patient's ejection fraction. Given body habitus, history of obstructive sleep apnea and obesity hypoventilation syndrome, right heart failure suspected. Lower pedal edema likely combination of heart failure and third spacing. Sw[place] Mary 03/15 showed elevated RAP 25 PAP 38 PCWP 23. Wy[place]ena Mary 03/16/2025 PCWP 9 (=17-8) Wyocena Mary 03/19/2025: RAP 8, PAP 27, PCWP 7 Dry weight: 197.9 Dry BNP 135 High cardiac output Plan: ? Continuing to hold Bumex - Daily weights - Strict I&O #Hx of A-fib [id number] score of 3 points indicating 3.2% risk of stroke per year HAS-BLED: 0 Plan: - Continue PO amiodarone 200 mg qday with small sips of water ? Potassium and magnesium above 4 and 2 respectively - Holding xarelto due to upcoming procedure ? Telemetry #Acute on chronic hypoxic and hypercapnic respiratory failure #Obesity hypoventilation syndrome and obstructive sleep apnea #Community-acquired pneumonia, Enterobacter [place] #Tracheostomy Patient was intubated on 02/27/2025, extubated 03/03/2025. Reintubated on 03/06/2025 and extubated 03/07/2025. Reintubated 03/10/2025 for hypercapnic encephalopathy Tracheostomy tube placed 03/15 [place] 03/19/2025 03/20/2025: PEEP 8, RR 10, FiO2 40, TV 420 Plan: - Continue vent, wean as tolerated #KENIA Pre-renal from cardiorenal and edema in the setting of third spacing, low albumin. Bumex drip discontinued. Right heart cath shows CVP 8, shows appropriate diuresis, however patient will need some fluid at this time Plan: - Nephrology following, Dr. Gannon, appreciate recommendations ?500 cc bolus LR x 1 #Hypernatremia, Hyper-osmolar Free water deficit 4.2 L for goal Na 147 Plan: ? Free water flushes 100 cc every hour ? 500 cc bolus LR ? 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 NG placement lost, unable to replace. DR. Doty consulted and will re-insert NG tube. General surgery, IR unable to do J- tube given history of daniel-en-y gastric bypass. Patient would benefit from TPN/PPN. Resumed tube feeds via NG tube Glucerna IR unable to put in PICC line today for TPN Plan: -Glucerna 1.[address] recommendations via NG tube, water flushes 100 cc an hour #Morbid obesity #DM2 A1C 7.6 on 03/05/2025 Patient has a BMI of 79.5 Plan: - ISS - Hypoglycemia protocol ordered #Normocytic Anemia likely secondary to anemia of chronic disease given normal MCV. No acute intervention, continue to monitor #Leukocytosis, resolved #Enterobacter cloacoe pneumonia, resolved. Finished Rocephin (03/06/2025) - Cefepime 03/18/2025, completed #Acute encephalopathy, resolved #Health Maintenance Disposition: Telemetry DVT prophylaxis: Heparin GI prophylaxis: Protonix Diet: NG tube feeds with Glucerna CODE STATUS: Full Patient seen and care discussed with my senior resident, Dr. Bay, and my attending physician, Dr. Ravin Shields, PGY-1 Attending Provider Attestation/Addendum I attest that I was physically present for the evaluation, physical examination, lab and imaging review of the patient with the residents. I discussed the case with the residents and agree with the findings and plans of care as documented above. At bedside today, patient is alert and awake, follows command and nods yes and no to questions appropriately. Denies any complaints. Patient has not been able to get feeding for 3 days. Received NG tube with gastroenterology. Started patient on tube feeds. Registered dietitian on board. Kidney function noted to be worsening, BUN/creatinine of 71/2.6 today, we will start 500 cc of IV fluid bolus, we will continue to hold diuresis. Patient also has hypernatremia, sodium level of 153 this morning, free water deficit of 5 L, we will correct his sodium level slowly, started on free water flushes at 100 cc/h. We will continue to monitor his sodium level closely. Patient failed swallow evaluation. Attempt was made by IR to place a PICC line, but was unsuccessful. Patient has completed his course of IV cefepime. Patient was on blow-by throughout the day yesterday, was switched to SIMV overnight. Cortez Alicia MD
[2025-03-20] MEDS: POTASSIUM CHL 10 mEq IVPB 10 MEQ/100 ML BAG 100 MEQ IV ×4 (10:01→15:29)
[2025-03-20] MEDS: RINGERS LACTATED 1000 ML 1,000 ML 999 ML IV (11:26)
--- NOTE | 2025-03-20 11:39 | PC.SS ---
Update: Patient is trach. NG tube feedings to resume. PEG tube placement pending. Dr. Kinney consulting. Plan is for patient to obtain PICC line. Patient is downgraded from ICU.
--- NOTE | 2025-03-20 12:45 | XR_ITS ---
Examination: AP chest single view TECHNIQUE: Supine portable AP chest single view Exam date and time: March 20, 2025 1303 hours Comparison March 18, 2025 INDICATIONS: History bibasilar pneumonia FINDINGS: Improvement with less prominent pneumonia left base Tracheal tube 5.3 cm above nunu Orogastric tube in the stomach Enlarged cardiac contour with significant vascular congestion IMPRESSION: Significant improvement in left base pneumonia
--- NOTE | 2025-03-20 13:16 | PD.RESPRO ---
Documentation for date of: 03/20/25 Subjective Subjective Interval history: Mr. Ortega is a 64-year-old male with past medical history of DM2, hypertension, and A-fib Morbid obesity by BMIwas admitted to the ICU on 02/27/2025 after coming to the ED with complaints of altered mental status and shortness of breath. Patient was intubated in the ED therefore most of the history was taken from chart review and from the parents who are at bedside. EMS found the patient on the floor and he was saturating in the 70s even on high flow nasal cannula. Given his hypoxia patient was intubated in the ED. Patient spiked a fever while in the ED and he became hypotensive unresponsive to IV fluids therefore he was placed on vasopressors. During course of hospitalization patient had decreasing kidney function, patient notably edematous and has vascular congestion on x-ray, therefore was treated with Bumex. Despite diuresis therapy, patient kidney function continued to worsen, diuresis positive patient given free water flushes. Patient has had notably low albumin, ICU team recently started patient on albumin but not at the same time as diuretics. Nephrology was consulted due to worsening kidney function. Tracheostomy placed yesterday. Labs today show WBC 12.5, hemoglobin 12.1, platelets 346. Sodium 149, potassium 3.6, chloride 104, bicarb 33.5. BUN 76, creatinine 2.7, EGFR 25. Hemoglobin A1c 7.6%. 03/16/2025: Patient seen and examined at bedside. Patient had 0.5 L in, 1.8 L urinary output, length of stay net -1.6 L. UA showed trace protein and blood, 2+ bacteria, 3+ uric acid crystals, 99 total protein, 104 creatinine. Catheter showed elevated wedge pressure suspect right heart failure due to chronic pulmonary hypertension related to patient's weight. Sodium increased to 150, free water deficits 4.5 L. Bicarb 34.7, BUN 73, creatinine 2.5, EGFR 28. However improved to 3.3, uric acid 9.0. Renal ultrasound was taken, however was unable to visualize kidneys. Will continue to diurese patient and provide albumin, possibly will need dialysis starting Tuesday if does not improve. 03/17/2025 patient currently seen in ICU. Remains on the ventilator. Patient still with significant anasarca. Blood sugar 143. Blood pressure 127/92, heart rate 85. Hemoglobin 12. Sodium 152, potassium 3.8, bicarbonate 39.7, BUN 70, creatinine 2.3, blood sugar 172, calcium 9.4, phosphorus 3.2, magnesium 1.7, LFTs normal, BNP 389, albumin 3.2, chest x-ray showed significant edema 03/18/2025: Patient seen and examioned in ICU. Remains on ventilator, trached. Significant anasarca. 0.5L in, 3.1L out. sodium 153, bicarb 39.7, BUN 69, creatinine 2.3, eGFR31. Resume free water for hypernatremia, continue bumex for diauresis. 03/19/2025: Patient seen and examined in ICU, ricardo on ventilator, trached. Anasarca significantly improved. 0.8 L in, 1.5 L out. Patient hypernatremia increasing to 153, osmolarity 329. BUN 70, creatinine 2.8, EGFR 28. Hold diuresis, will get [place] catheter to check if patient remains fluid overloaded. 03/20/2025: Patient seen and examined in ICU, patient physically remains in ICU, downgraded to telemetry. Patient has not been able to get feeding for the last 3 days, had NG tube placed was started on tube feeds earlier today. Patient sodium of 153 this morning, free water deficit 5 L was started on free water flushes at 100 cc/h by primary team. Patient was given 500 cc IV bolus, diuresis continues to be on hold. Patient continues to be on mechanical ventilation. Exam Vital Signs Temp Pulse Resp BP Pulse Ox O2 Del Method O2 Flow Rate 97.4 F 104 H 14 138/89 H 95 Mechanical Ventilation 10 03/20/25 04:00 03/20/25 10:50 03/20/25 10:50 03/20/25 09:58 03/20/25 10:50 03/20/25 04:00 03/20/25 10:50 FiO2 40 03/20/25 10:50 Narrative Exam General: AAOx3, in mild distress, severely morbidly obese HEENT: dry mucous membranes, conjunctiva clear, EOMI, PERRLA, trachestomy Cardiovascular:Ejection systolic murmur, radial pulses +2 bilat, irregularly irregular, ap Pulmonary: FiO2 40, Rate 10, PEEP 8, TV 420, mechanical breath sounds GI: No tenderness to light or deep palpitation, no guarding, rigidity, rebound tenderness or distension Extremities: Pitting edema in lower extremities bilaterally, dorsalis pedis pulses +2 bilaterally Neuro: AAOx3, no focal motor or sensory deficits in the UE or LE bilat Objective Labs 03/25/25 05:10 03/25/25 13:01 Labs: Laboratory Results - last 24 hr 03/20/25 04:36 WBC 10.9 H RBC 4.09 L Hgb 11.6 L Hct 37.5 L MCV 92 MCH 28.4 MCHC 30.9 L RDW Std Deviation 48.9 H Plt Count 274 D Neut % (Auto) 74 Lymph % (Auto) 9 L [place] % (Auto) 13 H Eos % (Auto) 3 Baso % (Auto) 1 Neut # (Auto) 8.1 H Lymph # (Auto) 0.9 L [place] # (Auto) 1.4 H Eos # (Auto) 0.3 Baso # (Auto) 0.1 Immature Gran # (Auto) 0.12 H Absolute Nucleated RBC 0.00 Immature Gran % 1 H Nucleated RBC % 0 PT 13.4 H INR 1.2 APTT 30.2 Sodium 153 H Potassium 3.4 Chloride 107 Carbon Dioxide 38.7 H Anion Gap 7 BUN 71 H Creatinine 2.6 H Estim Creat Clear Calc 47.0 L eGFR 27 L BUN/Creatinine Ratio 27 H Glucose 184 H Calculated Osmolality 329 H Calcium 8.8 Corrected Calcium 9.4 Phosphorus 3.6 Magnesium 2.0 Total Bilirubin 0.9 AST 30 ALT 18 Alkaline Phosphatase 106 B-Natriuretic Peptide 226 H Total Protein 5.9 Albumin 3.2 L Globulin 2.7 Albumin/Globulin Ratio 1.2 ABG Interpretation ABG results: 02/27/25 02/28/25 03/01/25 06:55 04:57 04:39 ABG pH 7.27 L 7.37 D 7.41 ABG pCO2 57 H 48 44 ABG pO2 101 78 L D 69 L ABG HCO3 26 28 H 28 H ABG O2 Saturation 98 95 93 ABG Base Excess -2 2 3 VBG pH VBG pCO2 VBG pO2 VBG Base Excess 03/01/25 03/01/25 03/02/25 13:15 14:52 04:25 ABG pH Cancelled 7.41 7.45 ABG pCO2 Cancelled 45 42 ABG pO2 Cancelled 53 L* 66 L ABG HCO3 Cancelled 28 H 29 H ABG O2 Saturation Cancelled 85 L 92 ABG Base Excess Cancelled 3 5 H VBG pH VBG pCO2 VBG pO2 VBG Base Excess 03/03/25 03/05/25 03/05/25 04:40 16:30 16:55 ABG pH 7.45 Cancelled 7.34 L D ABG pCO2 43 Cancelled 72 H* D ABG pO2 72 L Cancelled 83 ABG HCO3 30 H Cancelled 38 H ABG O2 Saturation 94 Cancelled 95 ABG Base Excess 5 H Cancelled 9 H VBG pH VBG pCO2 VBG pO2 VBG Base Excess 03/05/25 03/06/25 03/06/25 23:36 01:48 05:22 ABG pH 7.37 7.34 L 7.52 H D ABG pCO2 67 H 74 H* 47 D ABG pO2 150 H D 88 D 160 H D ABG HCO3 38 H 40 H 38 H ABG O2 Saturation 99 H 96 100 H ABG Base Excess 10 H 11 H 13 H VBG pH VBG pCO2 VBG pO2 VBG Base Excess 03/06/25 03/07/25 03/07/25 17:10 05:00 14:03 ABG pH 7.46 H ABG pCO2 53 H ABG pO2 65 L D ABG HCO3 38 H ABG O2 Saturation 93 ABG Base Excess 12 H VBG pH 7.50 7.52 VBG pCO2 50 47 VBG pO2 70 H 61 H VBG Base Excess 13 H 14 H 03/09/25 03/09/25 03/09/25 08:17 10:25 17:29 ABG pH 7.25 L D 7.29 L 7.29 L ABG pCO2 93 H* D 85 H* 88 H* ABG pO2 81 L 57 L* D 85 D ABG HCO3 41 H 40 H 43 H ABG O2 Saturation 95 89 L 97 ABG Base Excess 10 H 10 H 12 H VBG pH VBG pCO2 VBG pO2 VBG Base Excess 03/09/25 03/10/25 03/10/25 23:24 07:17 11:25 ABG pH 7.32 L 7.28 L 7.31 L ABG pCO2 78 H* D 90 H* D 81 H* ABG pO2 69 L 47 L* D 63 L ABG HCO3 40 H 43 H 41 H ABG O2 Saturation 94 80 L 93 ABG Base Excess 11 H 12 H 11 H VBG pH VBG pCO2 VBG pO2 VBG Base Excess 03/10/25 03/11/25 03/12/25 16:56 04:19 04:42 ABG pH 7.40 7.48 H 7.43 ABG pCO2 66 H D 54 H D 59 H ABG pO2 68 L 67 L 77 L ABG HCO3 41 H 40 H 39 H ABG O2 Saturation 94 94 96 ABG Base Excess 13 H 15 H 12 H VBG pH VBG pCO2 VBG pO2 VBG Base Excess 03/13/25 03/14/25 03/15/25 04:32 04:25 04:37 ABG pH 7.47 H 7.46 H 7.41 ABG pCO2 53 H 50 H 56 H ABG pO2 60 L 70 L 69 L ABG HCO3 38 H 36 H 35 H ABG O2 Saturation 93 95 95 ABG Base Excess 13 H 10 H 9 H VBG pH VBG pCO2 VBG pO2 VBG Base Excess 03/16/25 03/16/25 03/17/25 04:54 09:53 04:35 ABG pH 7.45 7.48 H 7.47 H ABG pCO2 51 H 49 H 53 H ABG pO2 68 L 34 L* D 87 D ABG HCO3 35 H 37 H 38 H ABG O2 Saturation 95 67 L 97 ABG Base Excess 10 H 12 H 13 H VBG pH VBG pCO2 VBG pO2 VBG Base Excess 03/18/25 03/19/25 04:26 05:00 ABG pH 7.44 7.45 ABG pCO2 57 H 55 H ABG pO2 107 D 73 L D ABG HCO3 38 H 38 H ABG O2 Saturation 99 H 96 ABG Base Excess 12 H 12 H VBG pH VBG pCO2 VBG pO2 VBG Base Excess Quality Measures Quality Measures sepsis Current suspected stage: sepsis Possible source: pulmonary Blood cultures ordered: completed in ED Antibiotic ordered: Yes Advance care planning discussed with:: patient Assessment & Plan Assessment Current Active Medications: Generic Name Dose Route Start Last Admin Trade Name Freq PRN Reason Stop Dose Admin Acetaminophen 650 mg 03/10/25 19:17 Acetaminophen 325 Mg Tablet PO 03/29/25 09:23 Q4HR PRN fever > 100.4 Al Hydrox/Mg Hydrox/Simethicone 30 ml 02/27/25 09:24 Mg Hyd/Al Hyd/Virgilio (Maalox Reg) Susp 30 Ml Udc PO 03/29/25 09:23 Q4HR PRN Heartburn or Upset Stomach Amiodarone HCl 200 mg 03/01/25 09:00 03/20/25 09:58 Amiodarone Hcl 200 Mg Tablet PO 03/31/25 08:59 200 mg QDAY KOURTNEY Administration Bumetanide 2 mg 03/17/25 21:00 03/18/25 21:28 Bumetanide Inj 0.25 Mg/Ml Vial 4 Ml IVP 04/16/25 20:59 2 mg BID KOURTNEY Administration Dextrose 25 ml 03/03/25 08:20 Dextrose 50%-Water Inj 50 Ml Syringe IV 04/02/25 08:19 Q15MIN PRN BG 50-70 responsive npo pt Dextrose 50 ml 03/03/25 08:20 Dextrose 50%-Water Inj 50 Ml Syringe IV 04/02/25 08:19 Q15MIN PRN BG <50 OR BG <70 & pt unresponsive Glucagon 1 mg 03/03/25 08:20 Glucagon Inj 1 Mg Vial IM Q15MIN PRN BG <70, and no IV access Heparin Sodium (Porcine) 7,500 unit 03/15/25 02:00 03/20/25 05:37 Heparin Sod Inj 5000 Unit/Ml Vial SC 03/29/25 01:59 Not Given Q8HR KOURTNEY Potassium Chloride 10 meq in 100 mls @ 100 mls/hr 03/20/25 09:48 03/20/25 11:23 Kcl Ivpb IV 03/20/25 13:47 100 mls/hr Q1H KOURTNEY Administration Insulin Human Lispro 0 unit 03/06/25 06:00 03/20/25 12:06 Insulin Lispro (Admelog) 1 Unit/0.01 Ml Unit SC 04/05/25 05:59 1 unit Q6H KOURTNEY Administration Protocol Magnesium Hydroxide 30 ml 02/27/25 09:24 Milk Of Magnesia Susp 30 Ml Udc PO 03/29/25 09:23 QDAY PRN CONSTIPATION Ondansetron HCl 4 mg 03/05/25 20:46 03/09/25 03:49 Ondansetron Inj 2 Mg/Ml Inj 2 Ml IV 04/04/25 20:45 4 mg Q6HR PRN Administration NAUSEA OR VOMITING Protocol Pantoprazole Sodium 40 mg 02/27/25 11:15 03/20/25 09:59 Pantoprazole Inj 40 Mg Vial IV 03/29/25 11:14 40 mg QDAY KOURTNEY Administration Rivaroxaban 20 mg 03/04/25 17:30 03/12/25 13:27 Rivaroxaban 10 Mg Tablet PO 04/03/25 17:29 Not Given WSUPPER KOURTNEY Plan 64-year-old male with past medical history of DM2, hypertension, and A-fib was admitted to the ICU on 02/27/2025 for acute hypoxic respiratory failure and altered mental status requiring intubation. Nephrology consulted for acute renal failure with worsening kidney function. #KENIA #Metabolic alkalosis #Hypernatremia, Hyper-osmolar Patient has no history of chronic kidney disease. Patient developed KENIA with worsening renal function during hospitalization. Initially suspected of cardiorenal syndrome, was treated with IV Bumex. Despite diuretic therapy patient kidney function continued to worsen. Suspect currently in ATN. Bumex was held, patient started on free water flushes. Patient continued to have worsening kidney function. Patient started on albumin today. Patient appears intravascularly depleted and intravascularly fluid overloaded. Ultrasound taken, unable to visualize kidneys. Urinalysis done showing trace blood, trace protein, 3+ uric acid crystals, 2+ bacteria. Urine total protein 99, urine creatinine 104. Nephrotic proteinuria ruled out, suspect KENIA related to right heart failure in the setting of elevated cardiac wedge pressure. Patient sodium worsening, however fluid status appears to go significantly improved on exam. [place] catheter shows patient is not fluid overloaded. 03/20: Patient sodium of 153 this morning, free water deficit 5 L was started on free water flushes at 100 cc/h by primary team. Patient was given 500 cc IV bolus, diuresis continues to be on hold. -Avoid nephrotoxic agent -Renally dose medication -Monitor daily labs -Continue free water flushes with goal of slow correction of free water deficit -Recommend holding diuresis pending results of [place]Mary catheter #Acute encephalopathy #Right diastolic CHF #Hx of A-fib #Acute on chronic hypoxic and hypercapnic respiratory failure #Obesity hypoventilation syndrome and obstructive sleep apnea #Community-acquired pneumonia, Enterobacter [place] #Morbid obesity #DM2 #Community-acquired pneumonia, Enterobacter cloacoe Management as per primary team Thank you for allowing us to participate in the care of this patient. Management discussed with attending Dr. Minor. Elizabeth Lamas PGY?1 Attending Provider Attestation/Addendum Pt is seen and examined. Labs and investigations are reviewed. Agree witth assessment and plan by resident. agree with findings. Clarence Minor MD
[2025-03-20 15:58] LABS: Albumin, Serum 3.3 gm/dL (3.4-4.8); Anion Gap 6 (7-16); BUN/Creatinine Ratio 27 Ratio (12-20); Blood Urea Nitrogen 68 mg/dL (9-23); Calcium 8.8 mg/dL (8.3-10.6); Calcium (Corrected) 9.4 mg/dL (8.5-10.1); Carbon Dioxide 37.9 mMol/L (20.0-31.0); Chloride 106 mMol/L (98-107); Creatinine (Component) 2.5 mg/dL (0.6-1.3); Estimated Creatinine Clearance 48.8 mL/min (>60); Glucose 202 mg/dL (74-106); Osmolality,Calculated 323 (275-295); Phosphorous 3.6 mg/dL (2.4-5.1); Potassium 3.8 mMol/L (3.4-5.1); Sodium 150 mMol/L (136-145); eGFR 28 See Note
--- NOTE | 2025-03-20 18:12 | ESPR_ITS ---
<Statement entered by Lenora John MD - 03/21/25 08:40> I personally examined the patient ICU evaluated the patient appears to be still in critical condition now as appears to be clinically dry PA pressure and wedge pressures are down sodium is elevated agree with the stopping diuretics and continue to hydrate the patient somewhat there is also third spacing going prognosis still poor because of multiple problems morbid obesity evaluate the patient with resident physician PGY 2 agree with the treatment plan recommendation as documented Documentation for date of: 03/20/25 Subjective Subjective Interval history: Patient was seen and examined at the bedside. No acute overnight events. His Lasix was hold today due to hyponatremia of 153, primary team started him on LR and increased free water flushes via NG tube. Yesterday [place]-Mary catheter was placed showing PCWP of 7, LAP 8, PAP 27. He is planned to get PICC line for TPN. Will continue current management with amiodarone and Xarelto. Resume Bumex likely tomorrow. Exam Vital Signs Temp Pulse Resp BP Pulse Ox O2 Del Method O2 Flow Rate 97.9 F 106 H 4 L 175/111 H 99 B[place] 10 03/20/25 08:00 03/20/25 17:01 03/20/25 17:01 03/20/25 17:01 03/20/25 17:01 03/20/25 16:00 03/20/25 10:50 FiO2 40 03/20/25 10:50 Narrative Exam Gen: Well-developed and well-nourished morbidly obese male. HEENT: NCAT, PERRLA, EOMI, MMM, anicteric conjunctivae, tracheostomy in place. CVS: Decreased heart sounds, normal S1 and S2. RRR. No M/R/G. Resp: Decreased breath sounds B/L. No rhonchi, rales, crackles or wheezing. Abd: soft, morbidly obese, non-tender, non-distended. BS+ in all 4 quadrants. Pitting edema over bilateral flanks and sides. MSK: Good ROM in BUE & BLE. 3+ pitting edema BLE. Neuro: Limited exam due to medical condition. Objective Labs 03/20/25 04:36 03/20/25 15:10 Labs: Laboratory Results - last 24 hr 03/20/25 03/20/25 04:36 15:10 WBC 10.9 H RBC 4.09 L Hgb 11.6 L Hct 37.5 L MCV 92 MCH 28.4 MCHC 30.9 L RDW Std Deviation 48.9 H Plt Count 274 D Neut % (Auto) 74 Lymph % (Auto) 9 L [place] % (Auto) 13 H Eos % (Auto) 3 Baso % (Auto) 1 Neut # (Auto) 8.1 H Lymph # (Auto) 0.9 L [place] # (Auto) 1.4 H Eos # (Auto) 0.3 Baso # (Auto) 0.1 Immature Gran # (Auto) 0.12 H Absolute Nucleated RBC 0.00 Immature Gran % 1 H Nucleated RBC % 0 PT 13.4 H INR 1.2 APTT 30.2 Sodium 153 H 150 H Potassium 3.4 3.8 Chloride 107 106 Carbon Dioxide 38.7 H 37.9 H Anion Gap 7 6 L BUN 71 H 68 H Creatinine 2.6 H 2.5 H Estim Creat Clear Calc 47.0 L 48.8 L eGFR 27 L 28 L BUN/Creatinine Ratio 27 H 27 H Glucose 184 H 202 H Calculated Osmolality 329 H 323 H Calcium 8.8 8.8 Corrected Calcium 9.4 9.4 Phosphorus 3.6 3.6 Magnesium 2.0 Total Bilirubin 0.9 AST 30 ALT 18 Alkaline Phosphatase 106 B-Natriuretic Peptide 226 H Total Protein 5.9 Albumin 3.2 L 3.3 L Globulin 2.7 Albumin/Globulin Ratio 1.2 ABG Interpretation ABG results: 02/27/25 02/28/25 03/01/25 06:55 04:57 04:39 ABG pH 7.27 L 7.37 D 7.41 ABG pCO2 57 H 48 44 ABG pO2 101 78 L D 69 L ABG HCO3 26 28 H 28 H ABG O2 Saturation 98 95 93 ABG Base Excess -2 2 3 VBG pH VBG pCO2 VBG pO2 VBG Base Excess 03/01/25 03/01/25 03/02/25 13:15 14:52 04:25 ABG pH Cancelled 7.41 7.45 ABG pCO2 Cancelled 45 42 ABG pO2 Cancelled 53 L* 66 L ABG HCO3 Cancelled 28 H 29 H ABG O2 Saturation Cancelled 85 L 92 ABG Base Excess Cancelled 3 5 H VBG pH VBG pCO2 VBG pO2 VBG Base Excess 03/03/25 03/05/25 03/05/25 04:40 16:30 16:55 ABG pH 7.45 Cancelled 7.34 L D ABG pCO2 43 Cancelled 72 H* D ABG pO2 72 L Cancelled 83 ABG HCO3 30 H Cancelled 38 H ABG O2 Saturation 94 Cancelled 95 ABG Base Excess 5 H Cancelled 9 H VBG pH VBG pCO2 VBG pO2 VBG Base Excess 03/05/25 03/06/25 03/06/25 23:36 01:48 05:22 ABG pH 7.37 7.34 L 7.52 H D ABG pCO2 67 H 74 H* 47 D ABG pO2 150 H D 88 D 160 H D ABG HCO3 38 H 40 H 38 H ABG O2 Saturation 99 H 96 100 H ABG Base Excess 10 H 11 H 13 H VBG pH VBG pCO2 VBG pO2 VBG Base Excess 03/06/25 03/07/25 03/07/25 17:10 05:00 14:03 ABG pH 7.46 H ABG pCO2 53 H ABG pO2 65 L D ABG HCO3 38 H ABG O2 Saturation 93 ABG Base Excess 12 H VBG pH 7.50 7.52 VBG pCO2 50 47 VBG pO2 70 H 61 H VBG Base Excess 13 H 14 H 03/09/25 03/09/25 03/09/25 08:17 10:25 17:29 ABG pH 7.25 L D 7.29 L 7.29 L ABG pCO2 93 H* D 85 H* 88 H* ABG pO2 81 L 57 L* D 85 D ABG HCO3 41 H 40 H 43 H ABG O2 Saturation 95 89 L 97 ABG Base Excess 10 H 10 H 12 H VBG pH VBG pCO2 VBG pO2 VBG Base Excess 03/09/25 03/10/25 03/10/25 23:24 07:17 11:25 ABG pH 7.32 L 7.28 L 7.31 L ABG pCO2 78 H* D 90 H* D 81 H* ABG pO2 69 L 47 L* D 63 L ABG HCO3 40 H 43 H 41 H ABG O2 Saturation 94 80 L 93 ABG Base Excess 11 H 12 H 11 H VBG pH VBG pCO2 VBG pO2 VBG Base Excess 03/10/25 03/11/25 03/12/25 16:56 04:19 04:42 ABG pH 7.40 7.48 H 7.43 ABG pCO2 66 H D 54 H D 59 H ABG pO2 68 L 67 L 77 L ABG HCO3 41 H 40 H 39 H ABG O2 Saturation 94 94 96 ABG Base Excess 13 H 15 H 12 H VBG pH VBG pCO2 VBG pO2 VBG Base Excess 03/13/25 03/14/25 03/15/25 04:32 04:25 04:37 ABG pH 7.47 H 7.46 H 7.41 ABG pCO2 53 H 50 H 56 H ABG pO2 60 L 70 L 69 L ABG HCO3 38 H 36 H 35 H ABG O2 Saturation 93 95 95 ABG Base Excess 13 H 10 H 9 H VBG pH VBG pCO2 VBG pO2 VBG Base Excess 03/16/25 03/16/25 03/17/25 04:54 09:53 04:35 ABG pH 7.45 7.48 H 7.47 H ABG pCO2 51 H 49 H 53 H ABG pO2 68 L 34 L* D 87 D ABG HCO3 35 H 37 H 38 H ABG O2 Saturation 95 67 L 97 ABG Base Excess 10 H 12 H 13 H VBG pH VBG pCO2 VBG pO2 VBG Base Excess 03/18/25 03/19/25 04:26 05:00 ABG pH 7.44 7.45 ABG pCO2 57 H 55 H ABG pO2 107 D 73 L D ABG HCO3 38 H 38 H ABG O2 Saturation 99 H 96 ABG Base Excess 12 H 12 H VBG pH VBG pCO2 VBG pO2 VBG Base Excess Quality Measures Quality Measures sepsis Current suspected stage: sepsis Possible source: pulmonary Blood cultures ordered: completed in ED Antibiotic ordered: Yes Advance care planning discussed with:: patient Assessment & Plan Assessment Current Active Medications: Generic Name Dose Route Start Last Admin Trade Name Freq PRN Reason Stop Dose Admin Acetaminophen 650 mg 03/10/25 19:17 Acetaminophen 325 Mg Tablet PO 03/29/25 09:23 Q4HR PRN fever > 100.4 Al Hydrox/Mg Hydrox/Simethicone 30 ml 02/27/25 09:24 Mg Hyd/Al Hyd/Virgilio (Maalox Reg) Susp 30 Ml Udc PO 03/29/25 09:23 Q4HR PRN Heartburn or Upset Stomach Amiodarone HCl 200 mg 03/01/25 09:00 03/20/25 09:58 Amiodarone Hcl 200 Mg Tablet PO 03/31/25 08:59 200 mg QDAY KOURTNEY Administration Bumetanide 2 mg 03/17/25 21:00 03/18/25 21:28 Bumetanide Inj 0.25 Mg/Ml Vial 4 Ml IVP 04/16/25 20:59 2 mg BID KOURTNEY Administration Dextrose 25 ml 03/03/25 08:20 Dextrose 50%-Water Inj 50 Ml Syringe IV 04/02/25 08:19 Q15MIN PRN BG 50-70 responsive npo pt Dextrose 50 ml 03/03/25 08:20 Dextrose 50%-Water Inj 50 Ml Syringe IV 04/02/25 08:19 Q15MIN PRN BG <50 OR BG <70 & pt unresponsive Glucagon 1 mg 03/03/25 08:20 Glucagon Inj 1 Mg Vial IM Q15MIN PRN BG <70, and no IV access Heparin Sodium (Porcine) 7,500 unit 03/20/25 21:00 Heparin Sod Inj 5000 Unit/Ml Vial SC 04/03/25 20:59 Q12H KOURTNEY Insulin Human Lispro 0 unit 03/06/25 06:00 03/20/25 12:06 Insulin Lispro (Admelog) 1 Unit/0.01 Ml Unit SC 04/05/25 05:59 1 unit Q6H KOURTNEY Administration Protocol Magnesium Hydroxide 30 ml 02/27/25 09:24 Milk Of Magnesia Susp 30 Ml Udc PO 03/29/25 09:23 QDAY PRN CONSTIPATION Ondansetron HCl 4 mg 03/05/25 20:46 03/09/25 03:49 Ondansetron Inj 2 Mg/Ml Inj 2 Ml IV 04/04/25 20:45 4 mg Q6HR PRN Administration NAUSEA OR VOMITING Protocol Pantoprazole Sodium 40 mg 02/27/25 11:15 03/20/25 09:59 Pantoprazole Inj 40 Mg Vial IV 03/29/25 11:14 40 mg QDAY KOURTNEY Administration Rivaroxaban 20 mg 03/04/25 17:30 03/12/25 13:27 Rivaroxaban 10 Mg Tablet PO 04/03/25 17:29 Not Given WSUPPER KOURTNEY Plan 64-year-old male with significant past medical history of hypertension, diabetes mellitus, A-fib was admitted to the ICU on 02/27/2025 after coming in with altered mental status and shortness of breath, intubated for acute hypoxic respiratory failure and had suspected obesity hypoventilation syndrome/obstructive sleep apnea/pneumonia and acute kidney injury. He was extubated on 03/03 and downgraded then re-intubated on 03/06 due to confusion and tachypneia. He was then extubated and downgraded to the floor on 03/07. On 03/10, patient again had decreased mentation on the BiPAP so was reintubated and upgraded. Cardiology has been consulted for suspected heart failure. #Right congestive heart failure with preserved EF. #Severe BASIA/OHS. #Hypernatremia. Echo on this admission showed poor quality images secondary to the patient's body habitus so was a technically limited study. Suspect chronic right heart failure in the setting of chronic obesity hypoventilation syndrome and obstructive sleep apnea. Currently appears to be more pulmonary component to respiratory failure than cardiac. Requiring ventilation support. -Echo 02/27/25: IVC appears to be dilated and also estimated RVSP also appears to be at least moderately elevated at 55 mmHg. 03/14/25: Will hold dirutics for now , he was given IV fluids yesterday. 03/15/25 : Ten[place] catheter was placed by ICU team which showed PA pressure of more than 30s and wedge pressure was also high . started him on bumex drip . will continue the albumin . he is getting his peg tube today 03/16/25: ICU team tried another Ten[place] catheter today which showed RA pressure of 25, PA pressure of 38, PCWP of 23. Plan is to continue Bumex for him. Cr stable at 2.5 03/17/2025: Net fluid balance -3350 cc. ICU team held Bumex due to significant electrolyte abnormalities, potassium 2.7. Once repleted Bumex drip will be resumed. Continue current management and monitor patient. 03/18/2025: net fluid balance -1650 , he received 1 dose of diamox yesterday. will continue to diures, he is off ventillor in blowby with PRN ventillator when he gets tired. 03/19/2025: no acute overnight event.Balance of -950 . ICU team put a swan catheter which showed he is adequately diressed for now, so bumex on hold for now. pending pegtube placement, its been difficult to do the procedure consedering his Rouxy history. Plan: - Will hold dirutics for now, he was given IV LR and FWF via NG for hypernatremia. #Atrial fibrillation, rate controlled. Patient notes positive history of afib. He had previously been on metoprolol succinate 100 mg BID. Currently appears rate-controlled in the 100s. CHADS-VASc score 4 Plan: - Metoprolol on hold in setting of right heart failure . -Resume Xarelto. -Continue amiodarone 200 mg qday. -Keep potassium >4.0 and mag >2.0. Rest of conditions to continue current management per primary team: #Acute hypoxic respiratory failure s/p tracheostomy. #Morbid obesity. #Community acquired pneumonia. #Elevated LFTs, resolved. #Hyperbilirubinemia, resolved. #History of type 2 diabetes. #Lactic acidosis, resolved. #KENIA on CKD. Discussed the patient with my attending Dr John. Poncho Espinosa MD, PGY 2. Disclaimer: This note was dictated by speech recognition. Minor errors in delineator may be present due to voice recognition software.
[2025-03-20 20:14] LABS: Albumin, Serum 3.2 gm/dL (3.4-4.8); Anion Gap 6 (7-16); BUN/Creatinine Ratio 27 Ratio (12-20); Blood Urea Nitrogen 64 mg/dL (9-23); Calcium 9.1 mg/dL (8.3-10.6); Calcium (Corrected) 9.7 mg/dL (8.5-10.1); Carbon Dioxide 38.6 mMol/L (20.0-31.0); Chloride 103 mMol/L (98-107); Creatinine (Component) 2.4 mg/dL (0.6-1.3); Estimated Creatinine Clearance 50.9 mL/min (>60); Glucose 198 mg/dL (74-106); Osmolality,Calculated 318 (275-295); Phosphorous 3.5 mg/dL (2.4-5.1); Potassium 3.6 mMol/L (3.4-5.1); Sodium 148 mMol/L (136-145); eGFR 29 See Note
--- NOTE | 2025-03-20 21:17 | PD.IMPROG ---
Documentation for date of: 03/20/25 Subjective Subjective Interval history: Patient evaluated Patient had presented for an NGT twice yesterday PICC line was not able to be placed Discussed the case with the internal medicine team Patient will benefit from a jejunostomy placement Exam Vital Signs Temp Pulse Resp BP Pulse Ox O2 Del Method O2 Flow Rate 97.9 F 109 H 11 L 158/96 H 99 Blow-by 10 03/20/25 08:00 03/20/25 20:00 03/20/25 20:00 03/20/25 20:00 03/20/25 20:00 03/20/25 16:00 03/20/25 10:50 FiO2 40 03/20/25 20:00 Objective Labs 03/20/25 04:36 03/20/25 19:45 Labs: Laboratory Results - last 24 hr 03/20/25 03/20/25 03/20/25 04:36 15:10 19:45 WBC 10.9 H RBC 4.09 L Hgb 11.6 L Hct 37.5 L MCV 92 MCH 28.4 MCHC 30.9 L RDW Std Deviation 48.9 H Plt Count 274 D Neut % (Auto) 74 Lymph % (Auto) 9 L Sharkey % (Auto) 13 H Eos % (Auto) 3 Baso % (Auto) 1 Neut # (Auto) 8.1 H Lymph # (Auto) 0.9 L Sharkey # (Auto) 1.4 H Eos # (Auto) 0.3 Baso # (Auto) 0.1 Immature Gran # (Auto) 0.12 H Absolute Nucleated RBC 0.00 Immature Gran % 1 H Nucleated RBC % 0 PT 13.4 H INR 1.2 APTT 30.2 Sodium 153 H 150 H 148 H Potassium 3.4 3.8 3.6 Chloride 107 106 103 Carbon Dioxide 38.7 H 37.9 H 38.6 H Anion Gap 7 6 L 6 L BUN 71 H 68 H 64 H Creatinine 2.6 H 2.5 H 2.4 H Estim Creat Clear Calc 47.0 L 48.8 L 50.9 L eGFR 27 L 28 L 29 L BUN/Creatinine Ratio 27 H 27 H 27 H Glucose 184 H 202 H 198 H Calculated Osmolality 329 H 323 H 318 H Calcium 8.8 8.8 9.1 Corrected Calcium 9.4 9.4 9.7 Phosphorus 3.6 3.6 3.5 Magnesium 2.0 Total Bilirubin 0.9 AST 30 ALT 18 Alkaline Phosphatase 106 B-Natriuretic Peptide 226 H Total Protein 5.9 Albumin 3.2 L 3.3 L 3.2 L Globulin 2.7 Albumin/Globulin Ratio 1.2 Impressions Impression: Failure to thrive Needs means to feed the patient the best ways to get jejunostomy tube placement ABG Interpretation ABG results: 02/27/25 02/28/25 03/01/25 06:55 04:57 04:39 ABG pH 7.27 L 7.37 D 7.41 ABG pCO2 57 H 48 44 ABG pO2 101 78 L D 69 L ABG HCO3 26 28 H 28 H ABG O2 Saturation 98 95 93 ABG Base Excess -2 2 3 VBG pH VBG pCO2 VBG pO2 VBG Base Excess 03/01/25 03/01/25 03/02/25 13:15 14:52 04:25 ABG pH Cancelled 7.41 7.45 ABG pCO2 Cancelled 45 42 ABG pO2 Cancelled 53 L* 66 L ABG HCO3 Cancelled 28 H 29 H ABG O2 Saturation Cancelled 85 L 92 ABG Base Excess Cancelled 3 5 H VBG pH VBG pCO2 VBG pO2 VBG Base Excess 03/03/25 03/05/25 03/05/25 04:40 16:30 16:55 ABG pH 7.45 Cancelled 7.34 L D ABG pCO2 43 Cancelled 72 H* D ABG pO2 72 L Cancelled 83 ABG HCO3 30 H Cancelled 38 H ABG O2 Saturation 94 Cancelled 95 ABG Base Excess 5 H Cancelled 9 H VBG pH VBG pCO2 VBG pO2 VBG Base Excess 03/05/25 03/06/25 03/06/25 23:36 01:48 05:22 ABG pH 7.37 7.34 L 7.52 H D ABG pCO2 67 H 74 H* 47 D ABG pO2 150 H D 88 D 160 H D ABG HCO3 38 H 40 H 38 H ABG O2 Saturation 99 H 96 100 H ABG Base Excess 10 H 11 H 13 H VBG pH VBG pCO2 VBG pO2 VBG Base Excess 03/06/25 03/07/25 03/07/25 17:10 05:00 14:03 ABG pH 7.46 H ABG pCO2 53 H ABG pO2 65 L D ABG HCO3 38 H ABG O2 Saturation 93 ABG Base Excess 12 H VBG pH 7.50 7.52 VBG pCO2 50 47 VBG pO2 70 H 61 H VBG Base Excess 13 H 14 H 03/09/25 03/09/25 03/09/25 08:17 10:25 17:29 ABG pH 7.25 L D 7.29 L 7.29 L ABG pCO2 93 H* D 85 H* 88 H* ABG pO2 81 L 57 L* D 85 D ABG HCO3 41 H 40 H 43 H ABG O2 Saturation 95 89 L 97 ABG Base Excess 10 H 10 H 12 H VBG pH VBG pCO2 VBG pO2 VBG Base Excess 03/09/25 03/10/25 03/10/25 23:24 07:17 11:25 ABG pH 7.32 L 7.28 L 7.31 L ABG pCO2 78 H* D 90 H* D 81 H* ABG pO2 69 L 47 L* D 63 L ABG HCO3 40 H 43 H 41 H ABG O2 Saturation 94 80 L 93 ABG Base Excess 11 H 12 H 11 H VBG pH VBG pCO2 VBG pO2 VBG Base Excess 03/10/25 03/11/25 03/12/25 16:56 04:19 04:42 ABG pH 7.40 7.48 H 7.43 ABG pCO2 66 H D 54 H D 59 H ABG pO2 68 L 67 L 77 L ABG HCO3 41 H 40 H 39 H ABG O2 Saturation 94 94 96 ABG Base Excess 13 H 15 H 12 H VBG pH VBG pCO2 VBG pO2 VBG Base Excess 03/13/25 03/14/25 03/15/25 04:32 04:25 04:37 ABG pH 7.47 H 7.46 H 7.41 ABG pCO2 53 H 50 H 56 H ABG pO2 60 L 70 L 69 L ABG HCO3 38 H 36 H 35 H ABG O2 Saturation 93 95 95 ABG Base Excess 13 H 10 H 9 H VBG pH VBG pCO2 VBG pO2 VBG Base Excess 03/16/25 03/16/25 03/17/25 04:54 09:53 04:35 ABG pH 7.45 7.48 H 7.47 H ABG pCO2 51 H 49 H 53 H ABG pO2 68 L 34 L* D 87 D ABG HCO3 35 H 37 H 38 H ABG O2 Saturation 95 67 L 97 ABG Base Excess 10 H 12 H 13 H VBG pH VBG pCO2 VBG pO2 VBG Base Excess 03/18/25 03/19/25 04:26 05:00 ABG pH 7.44 7.45 ABG pCO2 57 H 55 H ABG pO2 107 D 73 L D ABG HCO3 38 H 38 H ABG O2 Saturation 99 H 96 ABG Base Excess 12 H 12 H VBG pH VBG pCO2 VBG pO2 VBG Base Excess Assessment & Plan A&P Narrative # Evaluation for placement of a PEG tube I have tentatively schedule the patient for tomorrow afternoon It is going to be a technical challenge as patient is morbidly obese and there may not be a long enough catheter to intubate the cavity of the stomach Nonetheless it should be given for endoscopic placement of the PEG tube Other medical problems include Acute hypoxic respiratory failure requiring initially endotracheal intubation now tracheostomy and mechanical ventilation Chronic atrial fibrillation Diabetes mellitus type 2 Essential hypertension Thank you very much for the opportunity to participate in the care of this patient Time Spent With Patient Time: Total time spent is greater than 50% in coordination of care (as documented) at patient's floor/unit and/or counseling patient:
[2025-03-20] MEDS: HEPARIN SOD INJ 5000 UNIT/ML VIAL 7500 UNIT SC (21:32)
[2025-03-20 23:47] LABS: Albumin, Serum 3.3 gm/dL (3.4-4.8); Anion Gap 5 (7-16); BUN/Creatinine Ratio 28 Ratio (12-20); Blood Urea Nitrogen 69 mg/dL (9-23); Calcium 8.7 mg/dL (8.3-10.6); Calcium (Corrected) 9.3 mg/dL (8.5-10.1); Carbon Dioxide 38.5 mMol/L (20.0-31.0); Chloride 108 mMol/L (98-107); Creatinine (Component) 2.5 mg/dL (0.6-1.3); Estimated Creatinine Clearance 48.8 mL/min (>60); Glucose 209 mg/dL (74-106); Osmolality,Calculated 325 (275-295); Phosphorous 3.5 mg/dL (2.4-5.1); Potassium 3.9 mMol/L (3.4-5.1); Sodium 151 mMol/L (136-145); eGFR 28 See Note
[2025-03-21] VITALS (13 sets, daily range): BP systolic 113–165; BP diastolic 85–139; PULSE 74–128; RESP 14–22; TEMP 36–36.8; O2SAT 95–99; BMI 69.9
[2025-03-21 06:44] LABS: Basophils # (Auto) 0.1 Thou/mm3 (0.0-0.2); Basophils % (Auto) 1 % (0-2.5); Eosinophils # (Auto) 0.3 Thou/mm3 (0.0-0.5); Eosinophils % (Auto) 3 % (0-10); Hematocrit 37.6 % (41.0-53.0); Hemoglobin 11.5 g/dL (13.5-16.0); Immature Granulocytes % (Auto) 1 % (0-0); Immature Granulocytes Auto 0.11 Thou/mm3 (0.00-0.00); Lymphocytes # (Auto) 0.8 Thou/mm3 (1.0-4.8); Lymphocytes % (Auto) 8 % (10-50); Mean Corpuscular HGB Conc 30.6 g/dl (31.0-37.0); Mean Corpuscular Volume 92 fL (80-100); Monocytes # (Auto) 1.4 Thou/mm3 (0.0-0.8); Monocytes % (Auto) 13 % (0-12); Neutrophils # (Auto) 7.9 Thou/mm3 (1.8-7.7); Neutrophils % (Auto) 75 % (37-80); Nucleated Red Blood Cell % 0 /100 WBC (0); Platelet Count 262 Thou/mm3 (140-440); RDW Standard Deviation 48.7 fL (35.1-43.9); Red Blood Count 4.11 Miln/mm3 (4.50-5.90); White Blood Count 10.6 Thou/mm3 (3.8-10.6)
[2025-03-21 07:11] LABS: Alanine Aminotransferase 20 U/L (10-49); Albumin/Globulin Ratio 1.2 (1.2-2.2); Alkaline Phosphatase 127 U/L (46-116); Anion Gap 9 (7-16); Aspartate Amino Transferase 34 U/L (0-34); BUN/Creatinine Ratio 30 Ratio (12-20); Bilirubin,Total 0.9 mg/dL (0.3-1.2); Blood Urea Nitrogen 77 mg/dL (9-23); Calcium 8.7 mg/dL (8.3-10.6); Calcium (Corrected) 9.5 mg/dL (8.5-10.1); Carbon Dioxide 37.4 mMol/L (20.0-31.0); Chloride 107 mMol/L (98-107); Creatinine (Component) 2.6 mg/dL (0.6-1.3); Estimated Creatinine Clearance 47.8 mL/min (>60); Globulin 2.6 gm/dL (2.3-3.5); Glucose 206 mg/dL (74-106); Magnesium 1.9 mg/dL (1.6-2.6); Osmolality,Calculated 332 (275-295); Phosphorous 3.6 mg/dL (2.4-5.1); Sodium 153 mMol/L (136-145); Total Protein 5.6 gm/dL (5.7-8.2); eGFR 27 See Note
[2025-03-21 07:16] LABS: B-Type Natriuretic Peptide 164 pg/mL (0-100)
[2025-03-21 08:44] LABS: INR 1.2 (0.9-1.3); Partial Thromboplastin Time 27.4 Seconds (22.0-36.0); Prothrombin Time 13.1 Seconds (9.0-12.2)
[2025-03-21] MEDS: amLODIPine BESYLATE 5 MG TABLET 10 MG PO (09:22)
[2025-03-21] MEDS: AMIODARONE HCL 200 MG TABLET PO (09:23)
[2025-03-21] MEDS: HEPARIN SOD INJ 5000 UNIT/ML VIAL 7500 UNIT SC (09:24)
[2025-03-21] MEDS: Magnesium Sulfate 2 GM Ivpb 2 GM/50 ML BAG IV (09:26)
[2025-03-21] MEDS: PANTOPRAZOLE INJ 40 MG VIAL IV (09:26)
--- NOTE | 2025-03-21 10:48 | PD.RESPRO ---
Documentation for date of: 03/21/25 Subjective Subjective Interval history: Mr. Ortega is a 64-year-old male with past medical history of DM2, hypertension, and A-fib Morbid obesity by BMIwas admitted to the ICU on 02/27/2025 after coming to the ED with complaints of altered mental status and shortness of breath. Patient was intubated in the ED therefore most of the history was taken from chart review and from the parents who are at bedside. EMS found the patient on the floor and he was saturating in the 70s even on high flow nasal cannula. Given his hypoxia patient was intubated in the ED. Patient spiked a fever while in the ED and he became hypotensive unresponsive to IV fluids therefore he was placed on vasopressors. During course of hospitalization patient had decreasing kidney function, patient notably edematous and has vascular congestion on x-ray, therefore was treated with Bumex. Despite diuresis therapy, patient kidney function continued to worsen, diuresis positive patient given free water flushes. Patient has had notably low albumin, ICU team recently started patient on albumin but not at the same time as diuretics. Nephrology was consulted due to worsening kidney function. Tracheostomy placed yesterday. Labs today show WBC 12.5, hemoglobin 12.1, platelets 346. Sodium 149, potassium 3.6, chloride 104, bicarb 33.5. BUN 76, creatinine 2.7, EGFR 25. Hemoglobin A1c 7.6%. 03/16/2025: Patient seen and examined at bedside. Patient had 0.5 L in, 1.8 L urinary output, length of stay net -1.6 L. UA showed trace protein and blood, 2+ bacteria, 3+ uric acid crystals, 99 total protein, 104 creatinine. Catheter showed elevated wedge pressure suspect right heart failure due to chronic pulmonary hypertension related to patient's weight. Sodium increased to 150, free water deficits 4.5 L. Bicarb 34.7, BUN 73, creatinine 2.5, EGFR 28. However improved to 3.3, uric acid 9.0. Renal ultrasound was taken, however was unable to visualize kidneys. Will continue to diurese patient and provide albumin, possibly will need dialysis starting Tuesday if does not improve. 03/17/2025 patient currently seen in ICU. Remains on the ventilator. Patient still with significant anasarca. Blood sugar 143. Blood pressure 127/92, heart rate 85. Hemoglobin 12. Sodium 152, potassium 3.8, bicarbonate 39.7, BUN 70, creatinine 2.3, blood sugar 172, calcium 9.4, phosphorus 3.2, magnesium 1.7, LFTs normal, BNP 389, albumin 3.2, chest x-ray showed significant edema 03/18/2025: Patient seen and examioned in ICU. Remains on ventilator, trached. Significant anasarca. 0.5L in, 3.1L out. sodium 153, bicarb 39.7, BUN 69, creatinine 2.3, eGFR31. Resume free water for hypernatremia, continue bumex for diauresis. 03/19/2025: Patient seen and examined in ICU, ricardo on ventilator, trached. Anasarca significantly improved. 0.8 L in, 1.5 L out. Patient hypernatremia increasing to 153, osmolarity 329. BUN 70, creatinine 2.8, EGFR 28. Hold diuresis, will get [place] catheter to check if patient remains fluid overloaded. 03/20/2025: Patient seen and examined in ICU, patient physically remains in ICU, downgraded to telemetry. Patient has not been able to get feeding for the last 3 days, had NG tube placed was started on tube feeds earlier today. Patient sodium of 153 this morning, free water deficit 5 L was started on free water flushes at 100 cc/h by primary team. Patient was given 500 cc IV bolus, diuresis continues to be on hold. Patient continues to be on mechanical ventilation. 03/21/2025: Patient seen and examined in telemetry. Patient's sodium increased to 153 this morning, free water flushes were decreased to 50 cc/hr yesterday. Free water flushes increased to 100 cc/h this morning by primary team, agree with that management. Patient's free water deficit is around 8.4 L for goal correction of sodium by 10. If patient's hypernatremia continues to be refractory, can consider increasing free water flushes to 150-200 cc/h in the morning. Patient's renal function today BUN 77, creatinine 2.6, EGFR 27. Continue to monitor sodium. Exam Vital Signs Temp Pulse Resp BP Pulse Ox O2 Del Method O2 Flow Rate 98.2 F 120 H 22 H 126/99 H 99 Mechanical Ventilation 10 03/21/25 04:00 03/21/25 09:23 03/21/25 04:00 03/21/25 09:23 03/21/25 07:19 03/21/25 04:00 03/20/25 10:50 FiO2 40 03/21/25 07:19 Narrative Exam General: AAOx3, in mild distress, severely morbidly obese HEENT: dry mucous membranes, conjunctiva clear, EOMI, PERRLA, trachestomy Cardiovascular:Ejection systolic murmur, radial pulses +2 bilat, irregularly irregular, ap Pulmonary: FiO2 40, Rate 10, PEEP 8, TV 420, mechanical breath sounds GI: No tenderness to light or deep palpitation, no guarding, rigidity, rebound tenderness or distension Extremities: Pitting edema in lower extremities bilaterally, dorsalis pedis pulses +2 bilaterally Neuro: AAOx3, no focal motor or sensory deficits in the UE or LE bilat Objective Labs 03/25/25 05:10 03/25/25 13:01 Labs: Laboratory Results - last 24 hr 03/20/25 03/20/25 03/20/25 15:10 19:45 23:09 WBC RBC Hgb Hct MCV MCH MCHC RDW Std Deviation Plt Count Neut % (Auto) Lymph % (Auto) [place] % (Auto) Eos % (Auto) Baso % (Auto) Neut # (Auto) Lymph # (Auto) [place] # (Auto) Eos # (Auto) Baso # (Auto) Immature Gran # (Auto) Absolute Nucleated RBC Immature Gran % Nucleated RBC % PT INR APTT Sodium 150 H 148 H 151 H Potassium 3.8 3.6 3.9 Chloride 106 103 108 H Carbon Dioxide 37.9 H 38.6 H 38.5 H Anion Gap 6 L 6 L 5 L BUN 68 H 64 H 69 H Creatinine 2.5 H 2.4 H 2.5 H Estim Creat Clear Calc 48.8 L 50.9 L 48.8 L eGFR 28 L 29 L 28 L BUN/Creatinine Ratio 27 H 27 H 28 H Glucose 202 H 198 H 209 H Calculated Osmolality 323 H 318 H 325 H Calcium 8.8 9.1 8.7 Corrected Calcium 9.4 9.7 9.3 Phosphorus 3.6 3.5 3.5 Magnesium Total Bilirubin AST ALT Alkaline Phosphatase B-Natriuretic Peptide Total Protein Albumin 3.3 L 3.2 L 3.3 L Globulin Albumin/Globulin Ratio 03/21/25 05:50 WBC 10.6 RBC 4.11 L Hgb 11.5 L Hct 37.6 L MCV 92 MCH 28.0 MCHC 30.6 L RDW Std Deviation 48.7 H Plt Count 262 Neut % (Auto) 75 Lymph % (Auto) 8 L [place] % (Auto) 13 H Eos % (Auto) 3 Baso % (Auto) 1 Neut # (Auto) 7.9 H Lymph # (Auto) 0.8 L [place] # (Auto) 1.4 H Eos # (Auto) 0.3 Baso # (Auto) 0.1 Immature Gran # (Auto) 0.11 H Absolute Nucleated RBC 0.00 Immature Gran % 1 H Nucleated RBC % 0 PT 13.1 H INR 1.2 APTT 27.4 Sodium 153 H Potassium 4.0 Chloride 107 Carbon Dioxide 37.4 H Anion Gap 9 BUN 77 H Creatinine 2.6 H Estim Creat Clear Calc 47.8 L eGFR 27 L BUN/Creatinine Ratio 30 H Glucose 206 H Calculated Osmolality 332 H Calcium 8.7 Corrected Calcium 9.5 Phosphorus 3.6 Magnesium 1.9 Total Bilirubin 0.9 AST 34 ALT 20 Alkaline Phosphatase 127 H D B-Natriuretic Peptide 164 H Total Protein 5.6 L Albumin 3.0 L Globulin 2.6 Albumin/Globulin Ratio 1.2 ABG Interpretation ABG results: 02/27/25 02/28/25 03/01/25 06:55 04:57 04:39 ABG pH 7.27 L 7.37 D 7.41 ABG pCO2 57 H 48 44 ABG pO2 101 78 L D 69 L ABG HCO3 26 28 H 28 H ABG O2 Saturation 98 95 93 ABG Base Excess -2 2 3 VBG pH VBG pCO2 VBG pO2 VBG Base Excess 03/01/25 03/01/25 03/02/25 13:15 14:52 04:25 ABG pH Cancelled 7.41 7.45 ABG pCO2 Cancelled 45 42 ABG pO2 Cancelled 53 L* 66 L ABG HCO3 Cancelled 28 H 29 H ABG O2 Saturation Cancelled 85 L 92 ABG Base Excess Cancelled 3 5 H VBG pH VBG pCO2 VBG pO2 VBG Base Excess 03/03/25 03/05/25 03/05/25 04:40 16:30 16:55 ABG pH 7.45 Cancelled 7.34 L D ABG pCO2 43 Cancelled 72 H* D ABG pO2 72 L Cancelled 83 ABG HCO3 30 H Cancelled 38 H ABG O2 Saturation 94 Cancelled 95 ABG Base Excess 5 H Cancelled 9 H VBG pH VBG pCO2 VBG pO2 VBG Base Excess 03/05/25 03/06/25 03/06/25 23:36 01:48 05:22 ABG pH 7.37 7.34 L 7.52 H D ABG pCO2 67 H 74 H* 47 D ABG pO2 150 H D 88 D 160 H D ABG HCO3 38 H 40 H 38 H ABG O2 Saturation 99 H 96 100 H ABG Base Excess 10 H 11 H 13 H VBG pH VBG pCO2 VBG pO2 VBG Base Excess 03/06/25 03/07/25 03/07/25 17:10 05:00 14:03 ABG pH 7.46 H ABG pCO2 53 H ABG pO2 65 L D ABG HCO3 38 H ABG O2 Saturation 93 ABG Base Excess 12 H VBG pH 7.50 7.52 VBG pCO2 50 47 VBG pO2 70 H 61 H VBG Base Excess 13 H 14 H 03/09/25 03/09/25 03/09/25 08:17 10:25 17:29 ABG pH 7.25 L D 7.29 L 7.29 L ABG pCO2 93 H* D 85 H* 88 H* ABG pO2 81 L 57 L* D 85 D ABG HCO3 41 H 40 H 43 H ABG O2 Saturation 95 89 L 97 ABG Base Excess 10 H 10 H 12 H VBG pH VBG pCO2 VBG pO2 VBG Base Excess 03/09/25 03/10/25 03/10/25 23:24 07:17 11:25 ABG pH 7.32 L 7.28 L 7.31 L ABG pCO2 78 H* D 90 H* D 81 H* ABG pO2 69 L 47 L* D 63 L ABG HCO3 40 H 43 H 41 H ABG O2 Saturation 94 80 L 93 ABG Base Excess 11 H 12 H 11 H VBG pH VBG pCO2 VBG pO2 VBG Base Excess 03/10/25 03/11/25 03/12/25 16:56 04:19 04:42 ABG pH 7.40 7.48 H 7.43 ABG pCO2 66 H D 54 H D 59 H ABG pO2 68 L 67 L 77 L ABG HCO3 41 H 40 H 39 H ABG O2 Saturation 94 94 96 ABG Base Excess 13 H 15 H 12 H VBG pH VBG pCO2 VBG pO2 VBG Base Excess 03/13/25 03/14/25 03/15/25 04:32 04:25 04:37 ABG pH 7.47 H 7.46 H 7.41 ABG pCO2 53 H 50 H 56 H ABG pO2 60 L 70 L 69 L ABG HCO3 38 H 36 H 35 H ABG O2 Saturation 93 95 95 ABG Base Excess 13 H 10 H 9 H VBG pH VBG pCO2 VBG pO2 VBG Base Excess 03/16/25 03/16/25 03/17/25 04:54 09:53 04:35 ABG pH 7.45 7.48 H 7.47 H ABG pCO2 51 H 49 H 53 H ABG pO2 68 L 34 L* D 87 D ABG HCO3 35 H 37 H 38 H ABG O2 Saturation 95 67 L 97 ABG Base Excess 10 H 12 H 13 H VBG pH VBG pCO2 VBG pO2 VBG Base Excess 03/18/25 03/19/25 04:26 05:00 ABG pH 7.44 7.45 ABG pCO2 57 H 55 H ABG pO2 107 D 73 L D ABG HCO3 38 H 38 H ABG O2 Saturation 99 H 96 ABG Base Excess 12 H 12 H VBG pH VBG pCO2 VBG pO2 VBG Base Excess Quality Measures Quality Measures sepsis Current suspected stage: ruled out Possible source: pulmonary Blood cultures ordered: completed in ED Antibiotic ordered: No Advance care planning discussed with:: patient Assessment & Plan Assessment Current Active Medications: Generic Name Dose Route Start Last Admin Trade Name Freq PRN Reason Stop Dose Admin Acetaminophen 650 mg 03/10/25 19:17 Acetaminophen 325 Mg Tablet PO 03/29/25 09:23 Q4HR PRN fever > 100.4 Al Hydrox/Mg Hydrox/Simethicone 30 ml 02/27/25 09:24 Mg Hyd/Al Hyd/Virgilio (Maalox Reg) Susp 30 Ml Udc PO 03/29/25 09:23 Q4HR PRN Heartburn or Upset Stomach Amiodarone HCl 200 mg 03/01/25 09:00 03/21/25 09:23 Amiodarone Hcl 200 Mg Tablet PO 03/31/25 08:59 200 mg QDAY KOURTNEY Administration Amlodipine Besylate 10 mg 03/20/25 23:35 03/21/25 09:22 Amlodipine Besylate 5 Mg Tablet PO 04/19/25 23:34 10 mg DAILY KOURTNEY Administration Bumetanide 2 mg 03/17/25 21:00 03/18/25 21:28 Bumetanide Inj 0.25 Mg/Ml Vial 4 Ml IVP 04/16/25 20:59 2 mg BID KOURTNEY Administration Dextrose 25 ml 03/03/25 08:20 Dextrose 50%-Water Inj 50 Ml Syringe IV 04/02/25 08:19 Q15MIN PRN BG 50-70 responsive npo pt Dextrose 50 ml 03/03/25 08:20 Dextrose 50%-Water Inj 50 Ml Syringe IV 04/02/25 08:19 Q15MIN PRN BG <50 OR BG <70 & pt unresponsive Glucagon 1 mg 03/03/25 08:20 Glucagon Inj 1 Mg Vial IM Q15MIN PRN BG <70, and no IV access Insulin Human Lispro 0 unit 03/06/25 06:00 03/21/25 05:11 Insulin Lispro (Admelog) 1 Unit/0.01 Ml Unit SC 04/05/25 05:59 Not Given Q6H KOURTNEY Protocol Magnesium Hydroxide 30 ml 02/27/25 09:24 Milk Of Magnesia Susp 30 Ml Udc PO 03/29/25 09:23 QDAY PRN CONSTIPATION Ondansetron HCl 4 mg 03/05/25 20:46 03/09/25 03:49 Ondansetron Inj 2 Mg/Ml Inj 2 Ml IV 04/04/25 20:45 4 mg Q6HR PRN Administration NAUSEA OR VOMITING Protocol Pantoprazole Sodium 40 mg 02/27/25 11:15 03/21/25 09:26 Pantoprazole Inj 40 Mg Vial IV 03/29/25 11:14 40 mg QDAY KOURTNEY Administration Rivaroxaban 20 mg 03/04/25 17:30 03/12/25 13:27 Rivaroxaban 10 Mg Tablet PO 04/03/25 17:29 Not Given WSUPPER KOURTNEY Plan 64-year-old male with past medical history of DM2, hypertension, and A-fib was admitted to the ICU on 02/27/2025 for acute hypoxic respiratory failure and altered mental status requiring intubation. Nephrology consulted for acute renal failure with worsening kidney function. #KENIA #Metabolic alkalosis #Hypernatremia, Hyper-osmolar Patient has no history of chronic kidney disease. Patient developed KENIA with worsening renal function during hospitalization. Initially suspected of cardiorenal syndrome, was treated with IV Bumex. Despite diuretic therapy patient kidney function continued to worsen. Suspect currently in ATN. Bumex was held, patient started on free water flushes. Patient continued to have worsening kidney function. Patient started on albumin today. Patient appears intravascularly depleted and intravascularly fluid overloaded. Ultrasound taken, unable to visualize kidneys. Urinalysis done showing trace blood, trace protein, 3+ uric acid crystals, 2+ bacteria. Urine total protein 99, urine creatinine 104. Nephrotic proteinuria ruled out, suspect KENIA related to right heart failure in the setting of elevated cardiac wedge pressure. [place] catheter shows patient is not fluid overloaded. Patient sodium worsened compared to yesterday. -Continue free water flushes 100 cc/h, consider increasing to 150 cc/h as needed -Avoid nephrotoxic agent -Renally dose medication -Monitor daily labs -Continue free water flushes with goal of slow correction of free water deficit -Recommend holding diuresis pending results of [place] catheter #Acute encephalopathy #Right diastolic CHF #Hx of A-fib #Acute on chronic hypoxic and hypercapnic respiratory failure #Obesity hypoventilation syndrome and obstructive sleep apnea #Community-acquired pneumonia, Enterobacter [place] #Morbid obesity #DM2 #Community-acquired pneumonia, Enterobacter cloacoe Management as per primary team Thank you for allowing us to participate in the care of this patient. Management discussed with attending Dr. Minor. Elizabeth Lamas PGY?1 Attending Provider Attestation/Addendum Pt is seen and examined. Labs and investigations are reviewed. Agree witth assessment and plan by resident. agree with findings. Clarence Minor MD
--- NOTE | 2025-03-21 10:57 | PC.NURSE ---
Spoke with Dr. Lamas about patient getting dialysis catheter, he stated that Dr. Minor wants to see patient before she receives her catheter. IR notified, Md team notified. Will follow up with Dr. Minor when he arrives.
[2025-03-21] MEDS: INSULIN LISPRO (AdmeLOG) 1 UNIT/0.01 ML UNIT SC ×2 (11:45→17:38)
--- NOTE | 2025-03-21 13:25 | ESPR_ITS ---
<Statement entered by Lenora John MD - 03/25/25 08:37> I personally evaluate the patient in intensive care unit appears to be still in critical condition but stable sodium level 151 getting oral hydration replacement and diuretics are still on hold on mechanical ventilation also considering J-tube placement recommended by Dr. Doty for nutrition. Cardiac rebollar stable A-fib rate control evaluated patient with resident physician agree with the treatment plan recommendation as documented by PGY 3 Documentation for date of: 03/21/25 Subjective Subjective Interval history: patient was examined bedside this afternoon, no acute overnight event. free water flushes increase today for hypernatremia . Xarelto resumed . bumex on hold ,Dr Doty recommending jejunostomy placement. Exam Vital Signs Temp Pulse Resp BP Pulse Ox O2 Del Method O2 Flow Rate 98.2 F 110 H 22 H 126/99 H 97 Mechanical Ventilation 10 03/21/25 04:00 03/21/25 13:06 03/21/25 04:00 03/21/25 09:23 03/21/25 13:06 03/21/25 04:00 03/20/25 10:50 FiO2 40 03/21/25 13:06 Narrative Exam Gen: Well-developed and well-nourished morbidly obese male. HEENT: NCAT, PERRLA, EOMI, MMM, anicteric conjunctivae, tracheostomy in place. CVS: Decreased heart sounds, normal S1 and S2. RRR. No M/R/G. Resp: Decreased breath sounds B/L. No rhonchi, rales, crackles or wheezing. Abd: soft, morbidly obese, non-tender, non-distended. BS+ in all 4 quadrants. Pitting edema over bilateral flanks and sides. MSK: Good ROM in BUE & BLE. 3+ pitting edema BLE. Neuro: Limited exam due to medical condition. Objective Labs 03/21/25 05:50 03/21/25 15:00 Labs: Laboratory Results - last 24 hr 03/20/25 03/20/25 03/20/25 15:10 19:45 23:09 WBC RBC Hgb Hct MCV MCH MCHC RDW Std Deviation Plt Count Neut % (Auto) Lymph % (Auto) [place] % (Auto) Eos % (Auto) Baso % (Auto) Neut # (Auto) Lymph # (Auto) [place] # (Auto) Eos # (Auto) Baso # (Auto) Immature Gran # (Auto) Absolute Nucleated RBC Immature Gran % Nucleated RBC % PT INR APTT Sodium 150 H 148 H 151 H Potassium 3.8 3.6 3.9 Chloride 106 103 108 H Carbon Dioxide 37.9 H 38.6 H 38.5 H Anion Gap 6 L 6 L 5 L BUN 68 H 64 H 69 H Creatinine 2.5 H 2.4 H 2.5 H Estim Creat Clear Calc 48.8 L 50.9 L 48.8 L eGFR 28 L 29 L 28 L BUN/Creatinine Ratio 27 H 27 H 28 H Glucose 202 H 198 H 209 H Calculated Osmolality 323 H 318 H 325 H Calcium 8.8 9.1 8.7 Corrected Calcium 9.4 9.7 9.3 Phosphorus 3.6 3.5 3.5 Magnesium Total Bilirubin AST ALT Alkaline Phosphatase B-Natriuretic Peptide Total Protein Albumin 3.3 L 3.2 L 3.3 L Globulin Albumin/Globulin Ratio 03/21/25 05:50 WBC 10.6 RBC 4.11 L Hgb 11.5 L Hct 37.6 L MCV 92 MCH 28.0 MCHC 30.6 L RDW Std Deviation 48.7 H Plt Count 262 Neut % (Auto) 75 Lymph % (Auto) 8 L [place] % (Auto) 13 H Eos % (Auto) 3 Baso % (Auto) 1 Neut # (Auto) 7.9 H Lymph # (Auto) 0.8 L [place] # (Auto) 1.4 H Eos # (Auto) 0.3 Baso # (Auto) 0.1 Immature Gran # (Auto) 0.11 H Absolute Nucleated RBC 0.00 Immature Gran % 1 H Nucleated RBC % 0 PT 13.1 H INR 1.2 APTT 27.4 Sodium 153 H Potassium 4.0 Chloride 107 Carbon Dioxide 37.4 H Anion Gap 9 BUN 77 H Creatinine 2.6 H Estim Creat Clear Calc 47.8 L eGFR 27 L BUN/Creatinine Ratio 30 H Glucose 206 H Calculated Osmolality 332 H Calcium 8.7 Corrected Calcium 9.5 Phosphorus 3.6 Magnesium 1.9 Total Bilirubin 0.9 AST 34 ALT 20 Alkaline Phosphatase 127 H D B-Natriuretic Peptide 164 H Total Protein 5.6 L Albumin 3.0 L Globulin 2.6 Albumin/Globulin Ratio 1.2 ABG Interpretation ABG results: 02/27/25 02/28/25 03/01/25 06:55 04:57 04:39 ABG pH 7.27 L 7.37 D 7.41 ABG pCO2 57 H 48 44 ABG pO2 101 78 L D 69 L ABG HCO3 26 28 H 28 H ABG O2 Saturation 98 95 93 ABG Base Excess -2 2 3 VBG pH VBG pCO2 VBG pO2 VBG Base Excess 03/01/25 03/01/25 03/02/25 13:15 14:52 04:25 ABG pH Cancelled 7.41 7.45 ABG pCO2 Cancelled 45 42 ABG pO2 Cancelled 53 L* 66 L ABG HCO3 Cancelled 28 H 29 H ABG O2 Saturation Cancelled 85 L 92 ABG Base Excess Cancelled 3 5 H VBG pH VBG pCO2 VBG pO2 VBG Base Excess 03/03/25 03/05/25 03/05/25 04:40 16:30 16:55 ABG pH 7.45 Cancelled 7.34 L D ABG pCO2 43 Cancelled 72 H* D ABG pO2 72 L Cancelled 83 ABG HCO3 30 H Cancelled 38 H ABG O2 Saturation 94 Cancelled 95 ABG Base Excess 5 H Cancelled 9 H VBG pH VBG pCO2 VBG pO2 VBG Base Excess 03/05/25 03/06/25 03/06/25 23:36 01:48 05:22 ABG pH 7.37 7.34 L 7.52 H D ABG pCO2 67 H 74 H* 47 D ABG pO2 150 H D 88 D 160 H D ABG HCO3 38 H 40 H 38 H ABG O2 Saturation 99 H 96 100 H ABG Base Excess 10 H 11 H 13 H VBG pH VBG pCO2 VBG pO2 VBG Base Excess 03/06/25 03/07/25 03/07/25 17:10 05:00 14:03 ABG pH 7.46 H ABG pCO2 53 H ABG pO2 65 L D ABG HCO3 38 H ABG O2 Saturation 93 ABG Base Excess 12 H VBG pH 7.50 7.52 VBG pCO2 50 47 VBG pO2 70 H 61 H VBG Base Excess 13 H 14 H 03/09/25 03/09/25 03/09/25 08:17 10:25 17:29 ABG pH 7.25 L D 7.29 L 7.29 L ABG pCO2 93 H* D 85 H* 88 H* ABG pO2 81 L 57 L* D 85 D ABG HCO3 41 H 40 H 43 H ABG O2 Saturation 95 89 L 97 ABG Base Excess 10 H 10 H 12 H VBG pH VBG pCO2 VBG pO2 VBG Base Excess 03/09/25 03/10/25 03/10/25 23:24 07:17 11:25 ABG pH 7.32 L 7.28 L 7.31 L ABG pCO2 78 H* D 90 H* D 81 H* ABG pO2 69 L 47 L* D 63 L ABG HCO3 40 H 43 H 41 H ABG O2 Saturation 94 80 L 93 ABG Base Excess 11 H 12 H 11 H VBG pH VBG pCO2 VBG pO2 VBG Base Excess 03/10/25 03/11/25 03/12/25 16:56 04:19 04:42 ABG pH 7.40 7.48 H 7.43 ABG pCO2 66 H D 54 H D 59 H ABG pO2 68 L 67 L 77 L ABG HCO3 41 H 40 H 39 H ABG O2 Saturation 94 94 96 ABG Base Excess 13 H 15 H 12 H VBG pH VBG pCO2 VBG pO2 VBG Base Excess 03/13/25 03/14/25 03/15/25 04:32 04:25 04:37 ABG pH 7.47 H 7.46 H 7.41 ABG pCO2 53 H 50 H 56 H ABG pO2 60 L 70 L 69 L ABG HCO3 38 H 36 H 35 H ABG O2 Saturation 93 95 95 ABG Base Excess 13 H 10 H 9 H VBG pH VBG pCO2 VBG pO2 VBG Base Excess 03/16/25 03/16/25 03/17/25 04:54 09:53 04:35 ABG pH 7.45 7.48 H 7.47 H ABG pCO2 51 H 49 H 53 H ABG pO2 68 L 34 L* D 87 D ABG HCO3 35 H 37 H 38 H ABG O2 Saturation 95 67 L 97 ABG Base Excess 10 H 12 H 13 H VBG pH VBG pCO2 VBG pO2 VBG Base Excess 03/18/25 03/19/25 04:26 05:00 ABG pH 7.44 7.45 ABG pCO2 57 H 55 H ABG pO2 107 D 73 L D ABG HCO3 38 H 38 H ABG O2 Saturation 99 H 96 ABG Base Excess 12 H 12 H VBG pH VBG pCO2 VBG pO2 VBG Base Excess Quality Measures Quality Measures sepsis Current suspected stage: ruled out Possible source: pulmonary Blood cultures ordered: completed in ED Antibiotic ordered: Yes Advance care planning discussed with:: patient Assessment & Plan Assessment Current Active Medications: Generic Name Dose Route Start Last Admin Trade Name Freq PRN Reason Stop Dose Admin Acetaminophen 650 mg 03/10/25 19:17 Acetaminophen 325 Mg Tablet PO 03/29/25 09:23 Q4HR PRN fever > 100.4 Al Hydrox/Mg Hydrox/Simethicone 30 ml 02/27/25 09:24 Mg Hyd/Al Hyd/Virgilio (Maalox Reg) Susp 30 Ml Udc PO 03/29/25 09:23 Q4HR PRN Heartburn or Upset Stomach Amiodarone HCl 200 mg 03/01/25 09:00 03/21/25 09:23 Amiodarone Hcl 200 Mg Tablet PO 03/31/25 08:59 200 mg QDAY KOURTNEY Administration Amlodipine Besylate 10 mg 03/20/25 23:35 03/21/25 09:22 Amlodipine Besylate 5 Mg Tablet PO 04/19/25 23:34 10 mg DAILY KOURTNEY Administration Bumetanide 2 mg 03/17/25 21:00 03/18/25 21:28 Bumetanide Inj 0.25 Mg/Ml Vial 4 Ml IVP 04/16/25 20:59 2 mg BID KOURTNEY Administration Dextrose 25 ml 03/03/25 08:20 Dextrose 50%-Water Inj 50 Ml Syringe IV 04/02/25 08:19 Q15MIN PRN BG 50-70 responsive npo pt Dextrose 50 ml 03/03/25 08:20 Dextrose 50%-Water Inj 50 Ml Syringe IV 04/02/25 08:19 Q15MIN PRN BG <50 OR BG <70 & pt unresponsive Glucagon 1 mg 03/03/25 08:20 Glucagon Inj 1 Mg Vial IM Q15MIN PRN BG <70, and no IV access Insulin Human Lispro 0 unit 03/06/25 06:00 03/21/25 11:45 Insulin Lispro (Admelog) 1 Unit/0.01 Ml Unit SC 04/05/25 05:59 1 unit Q6H KOURTNEY Administration Protocol Magnesium Hydroxide 30 ml 02/27/25 09:24 Milk Of Magnesia Susp 30 Ml Udc PO 03/29/25 09:23 QDAY PRN CONSTIPATION Ondansetron HCl 4 mg 03/05/25 20:46 03/09/25 03:49 Ondansetron Inj 2 Mg/Ml Inj 2 Ml IV 04/04/25 20:45 4 mg Q6HR PRN Administration NAUSEA OR VOMITING Protocol Pantoprazole Sodium 40 mg 02/27/25 11:15 03/21/25 09:26 Pantoprazole Inj 40 Mg Vial IV 03/29/25 11:14 40 mg QDAY KOURTNEY Administration Rivaroxaban 20 mg 03/04/25 17:30 03/12/25 13:27 Rivaroxaban 10 Mg Tablet PO 04/03/25 17:29 Not Given WSUPPER KOURTNEY Plan 64-year-old male with significant past medical history of hypertension, diabetes mellitus, A-fib was admitted to the ICU on 02/27/2025 after coming in with altered mental status and shortness of breath, intubated for acute hypoxic respiratory failure and had suspected obesity hypoventilation syndrome/obstructive sleep apnea/pneumonia and acute kidney injury. He was extubated on 03/03 and downgraded then re-intubated on 03/06 due to confusion and tachypneia. He was then extubated and downgraded to the floor on 03/07. On 03/10, patient again had decreased mentation on the BiPAP so was reintubated and upgraded. Cardiology has been consulted for suspected heart failure. #Right congestive heart failure with preserved EF. #Severe BASIA/OHS. #Hypernatremia. Echo on this admission showed poor quality images secondary to the patient's body habitus so was a technically limited study. Suspect chronic right heart failure in the setting of chronic obesity hypoventilation syndrome and obstructive sleep apnea. Currently appears to be more pulmonary component to respiratory failure than cardiac. Requiring ventilation support. -Echo 02/27/25: IVC appears to be dilated and also estimated RVSP also appears to be at least moderately elevated at 55 mmHg. 03/14/25: Will hold dirutics for now , he was given IV fluids yesterday. 03/15/25 : [place] catheter was placed by ICU team which showed PA pressure of more than 30s and wedge pressure was also high . started him on bumex drip . will continue the albumin . he is getting his peg tube today 03/16/25: ICU team tried another [place] catheter today which showed RA pressure of 25, PA pressure of 38, PCWP of 23. Plan is to continue Bumex for him. Cr stable at 2.5 03/17/2025: Net fluid balance -3350 cc. ICU team held Bumex due to significant electrolyte abnormalities, potassium 2.7. Once repleted Bumex drip will be resumed. Continue current management and monitor patient. 03/18/2025: net fluid balance -1650 , he received 1 dose of diamox yesterday. will continue to diures, he is off ventillor in blowby with PRN ventillator when he gets tired. 03/19/2025: no acute overnight event.Balance of -950 . ICU team put a swan catheter which showed he is adequately diressed for now, so bumex on hold for now. pending pegtube placement, its been difficult to do the procedure consedering his Rouxy history. Plan: 03/20/2025: Will hold dirutics for now, he was given IV LR and FWF via NG for hypernatremia. 03/21/2025: no acute overnight event. free water flushes increase today for hypernatremia . Xarelto resumed . bumex on hold ,Dr Doty recommending jejunostomy placement. #Atrial fibrillation, rate controlled. Patient notes positive history of afib. He had previously been on metoprolol succinate 100 mg BID. Currently appears rate-controlled in the 100s. CHADS-VASc score 4 Plan: - Metoprolol on hold in setting of right heart failure . -Resume Xarelto. -Continue amiodarone 200 mg qday. -Keep potassium >4.0 and mag >2.0. Rest of conditions to continue current management per primary team: #Acute hypoxic respiratory failure s/p tracheostomy. #Morbid obesity. #Community acquired pneumonia. #Elevated LFTs, resolved. #Hyperbilirubinemia, resolved. #History of type 2 diabetes. #Lactic acidosis, resolved. #KENIA on CKD. Discussed the patient with my attending Dr Alvaro Newell MD, PGY-3
[2025-03-21 15:24] LABS: Anion Gap 7 (7-16); BUN/Creatinine Ratio 26 Ratio (12-20); Blood Urea Nitrogen 71 mg/dL (9-23); Calcium 8.9 mg/dL (8.3-10.6); Carbon Dioxide 37.1 mMol/L (20.0-31.0); Chloride 107 mMol/L (98-107); Creatinine (Component) 2.7 mg/dL (0.6-1.3); Glucose 219 mg/dL (74-106); Osmolality,Calculated 327 (275-295); Potassium 3.6 mMol/L (3.4-5.1); Sodium 151 mMol/L (136-145); eGFR 25 See Note
[2025-03-21] MEDS: RIVAROXABAN 10 MG TABLET 20 MG PO (16:54)
--- NOTE | 2025-03-21 17:15 | ESPR_ITS ---
<Statement entered by Lorri Bay MD - 03/21/25 17:29> Patient is seen and examined at bedside. We started feeding through NG tube. PICC line was failed yesterday. Will continue at this time feeding through the NG tube, next week Tuesday will assist the patient again after he gets the PMV valve to help with the speech and swallowing. After that we will do another speech assessment of the patient unable to tolerate feeding will possibly transfer the patient for bariatric PEG tube placement. - Patient's plan and care discussed with my attending, Dr. Coco Bay MD Internal Medicine PGY-2 Documentation for date of: 03/21/25 Subjective Subjective Interval history: Patient examined at bedside today. No acute overnight events. Patient reports he is doing well. Will continue with NG tube feedings. Patient will not get jejunostomy tube at this time. Will see how patient's mentation improves and will consider other alternatives. No other complaints this time Exam Vital Signs Temp Pulse Resp BP Pulse Ox O2 Del Method O2 Flow Rate 98.2 F 110 H 22 H 126/99 H 97 Mechanical Ventilation 10 03/21/25 04:00 03/21/25 13:06 03/21/25 04:00 03/21/25 09:23 03/21/25 13:06 03/21/25 04:00 03/20/25 10:50 FiO2 40 03/21/25 13:06 Narrative Exam General: AAOx3, in mild distress, severely morbidly obese HEENT: dry mucous membranes, conjunctiva clear, EOMI, PERRLA, trachestomy Cardiovascular:Ejection systolic murmur, radial pulses +2 bilat, irregularly irregular, ap Pulmonary: FiO2 40, Rate 10, PEEP 8, TV 420, mechanical breath sounds GI: No tenderness to light or deep palpitation, no guarding, rigidity, rebound tenderness or distension Extremities: Pitting edema in lower extremities bilaterally, dorsalis pedis pulses +2 bilaterally Neuro: AAOx3, no focal motor or sensory deficits in the UE or LE bilat Objective Labs 03/21/25 05:50 03/22/25 05:15 Labs: Laboratory Results - last 24 hr 03/20/25 03/20/25 03/21/25 19:45 23:09 05:50 WBC 10.6 RBC 4.11 L Hgb 11.5 L Hct 37.6 L MCV 92 MCH 28.0 MCHC 30.6 L RDW Std Deviation 48.7 H Plt Count 262 Neut % (Auto) 75 Lymph % (Auto) 8 L [place] % (Auto) 13 H Eos % (Auto) 3 Baso % (Auto) 1 Neut # (Auto) 7.9 H Lymph # (Auto) 0.8 L [place] # (Auto) 1.4 H Eos # (Auto) 0.3 Baso # (Auto) 0.1 Immature Gran # (Auto) 0.11 H Absolute Nucleated RBC 0.00 Immature Gran % 1 H Nucleated RBC % 0 PT 13.1 H INR 1.2 APTT 27.4 Sodium 148 H 151 H 153 H Potassium 3.6 3.9 4.0 Chloride 103 108 H 107 Carbon Dioxide 38.6 H 38.5 H 37.4 H Anion Gap 6 L 5 L 9 BUN 64 H 69 H 77 H Creatinine 2.4 H 2.5 H 2.6 H Estim Creat Clear Calc 50.9 L 48.8 L 47.8 L eGFR 29 L 28 L 27 L BUN/Creatinine Ratio 27 H 28 H 30 H Glucose 198 H 209 H 206 H Calculated Osmolality 318 H 325 H 332 H Calcium 9.1 8.7 8.7 Corrected Calcium 9.7 9.3 9.5 Phosphorus 3.5 3.5 3.6 Magnesium 1.9 Total Bilirubin 0.9 AST 34 ALT 20 Alkaline Phosphatase 127 H D B-Natriuretic Peptide 164 H Total Protein 5.6 L Albumin 3.2 L 3.3 L 3.0 L Globulin 2.6 Albumin/Globulin Ratio 1.2 03/21/25 15:00 WBC RBC Hgb Hct MCV MCH MCHC RDW Std Deviation Plt Count Neut % (Auto) Lymph % (Auto) [place] % (Auto) Eos % (Auto) Baso % (Auto) Neut # (Auto) Lymph # (Auto) [place] # (Auto) Eos # (Auto) Baso # (Auto) Immature Gran # (Auto) Absolute Nucleated RBC Immature Gran % Nucleated RBC % PT INR APTT Sodium 151 H Potassium 3.6 Chloride 107 Carbon Dioxide 37.1 H Anion Gap 7 BUN 71 H Creatinine 2.7 H Estim Creat Clear Calc 46.0 L eGFR 25 L BUN/Creatinine Ratio 26 H Glucose 219 H Calculated Osmolality 327 H Calcium 8.9 Corrected Calcium Phosphorus Magnesium Total Bilirubin AST ALT Alkaline Phosphatase B-Natriuretic Peptide Total Protein Albumin Globulin Albumin/Globulin Ratio ABG Interpretation ABG results: 02/27/25 02/28/25 03/01/25 06:55 04:57 04:39 ABG pH 7.27 L 7.37 D 7.41 ABG pCO2 57 H 48 44 ABG pO2 101 78 L D 69 L ABG HCO3 26 28 H 28 H ABG O2 Saturation 98 95 93 ABG Base Excess -2 2 3 VBG pH VBG pCO2 VBG pO2 VBG Base Excess 03/01/25 03/01/25 03/02/25 13:15 14:52 04:25 ABG pH Cancelled 7.41 7.45 ABG pCO2 Cancelled 45 42 ABG pO2 Cancelled 53 L* 66 L ABG HCO3 Cancelled 28 H 29 H ABG O2 Saturation Cancelled 85 L 92 ABG Base Excess Cancelled 3 5 H VBG pH VBG pCO2 VBG pO2 VBG Base Excess 03/03/25 03/05/25 03/05/25 04:40 16:30 16:55 ABG pH 7.45 Cancelled 7.34 L D ABG pCO2 43 Cancelled 72 H* D ABG pO2 72 L Cancelled 83 ABG HCO3 30 H Cancelled 38 H ABG O2 Saturation 94 Cancelled 95 ABG Base Excess 5 H Cancelled 9 H VBG pH VBG pCO2 VBG pO2 VBG Base Excess 03/05/25 03/06/25 03/06/25 23:36 01:48 05:22 ABG pH 7.37 7.34 L 7.52 H D ABG pCO2 67 H 74 H* 47 D ABG pO2 150 H D 88 D 160 H D ABG HCO3 38 H 40 H 38 H ABG O2 Saturation 99 H 96 100 H ABG Base Excess 10 H 11 H 13 H VBG pH VBG pCO2 VBG pO2 VBG Base Excess 03/06/25 03/07/25 03/07/25 17:10 05:00 14:03 ABG pH 7.46 H ABG pCO2 53 H ABG pO2 65 L D ABG HCO3 38 H ABG O2 Saturation 93 ABG Base Excess 12 H VBG pH 7.50 7.52 VBG pCO2 50 47 VBG pO2 70 H 61 H VBG Base Excess 13 H 14 H 03/09/25 03/09/25 03/09/25 08:17 10:25 17:29 ABG pH 7.25 L D 7.29 L 7.29 L ABG pCO2 93 H* D 85 H* 88 H* ABG pO2 81 L 57 L* D 85 D ABG HCO3 41 H 40 H 43 H ABG O2 Saturation 95 89 L 97 ABG Base Excess 10 H 10 H 12 H VBG pH VBG pCO2 VBG pO2 VBG Base Excess 03/09/25 03/10/25 03/10/25 23:24 07:17 11:25 ABG pH 7.32 L 7.28 L 7.31 L ABG pCO2 78 H* D 90 H* D 81 H* ABG pO2 69 L 47 L* D 63 L ABG HCO3 40 H 43 H 41 H ABG O2 Saturation 94 80 L 93 ABG Base Excess 11 H 12 H 11 H VBG pH VBG pCO2 VBG pO2 VBG Base Excess 03/10/25 03/11/25 03/12/25 16:56 04:19 04:42 ABG pH 7.40 7.48 H 7.43 ABG pCO2 66 H D 54 H D 59 H ABG pO2 68 L 67 L 77 L ABG HCO3 41 H 40 H 39 H ABG O2 Saturation 94 94 96 ABG Base Excess 13 H 15 H 12 H VBG pH VBG pCO2 VBG pO2 VBG Base Excess 03/13/25 03/14/25 03/15/25 04:32 04:25 04:37 ABG pH 7.47 H 7.46 H 7.41 ABG pCO2 53 H 50 H 56 H ABG pO2 60 L 70 L 69 L ABG HCO3 38 H 36 H 35 H ABG O2 Saturation 93 95 95 ABG Base Excess 13 H 10 H 9 H VBG pH VBG pCO2 VBG pO2 VBG Base Excess 03/16/25 03/16/25 03/17/25 04:54 09:53 04:35 ABG pH 7.45 7.48 H 7.47 H ABG pCO2 51 H 49 H 53 H ABG pO2 68 L 34 L* D 87 D ABG HCO3 35 H 37 H 38 H ABG O2 Saturation 95 67 L 97 ABG Base Excess 10 H 12 H 13 H VBG pH VBG pCO2 VBG pO2 VBG Base Excess 03/18/25 03/19/25 04:26 05:00 ABG pH 7.44 7.45 ABG pCO2 57 H 55 H ABG pO2 107 D 73 L D ABG HCO3 38 H 38 H ABG O2 Saturation 99 H 96 ABG Base Excess 12 H 12 H VBG pH VBG pCO2 VBG pO2 VBG Base Excess Quality Measures Quality Measures sepsis Current suspected stage: ruled out Possible source: pulmonary Blood cultures ordered: completed in ED Antibiotic ordered: No Advance care planning discussed with:: patient Assessment & Plan Assessment Current Active Medications: Generic Name Dose Route Start Last Admin Trade Name Freq PRN Reason Stop Dose Admin Acetaminophen 650 mg 03/10/25 19:17 Acetaminophen 325 Mg Tablet PO 03/29/25 09:23 Q4HR PRN fever > 100.4 Al Hydrox/Mg Hydrox/Simethicone 30 ml 02/27/25 09:24 Mg Hyd/Al Hyd/Virgilio (Maalox Reg) Susp 30 Ml Udc PO 03/29/25 09:23 Q4HR PRN Heartburn or Upset Stomach Amiodarone HCl 200 mg 03/01/25 09:00 03/21/25 09:23 Amiodarone Hcl 200 Mg Tablet PO 03/31/25 08:59 200 mg QDAY KOURTNEY Administration Amlodipine Besylate 10 mg 03/20/25 23:35 03/21/25 09:22 Amlodipine Besylate 5 Mg Tablet PO 04/19/25 23:34 10 mg DAILY KOURTNEY Administration Bumetanide 2 mg 03/17/25 21:00 03/18/25 21:28 Bumetanide Inj 0.25 Mg/Ml Vial 4 Ml IVP 04/16/25 20:59 2 mg BID KOURTNEY Administration Dextrose 25 ml 03/03/25 08:20 Dextrose 50%-Water Inj 50 Ml Syringe IV 04/02/25 08:19 Q15MIN PRN BG 50-70 responsive npo pt Dextrose 50 ml 03/03/25 08:20 Dextrose 50%-Water Inj 50 Ml Syringe IV 04/02/25 08:19 Q15MIN PRN BG <50 OR BG <70 & pt unresponsive Glucagon 1 mg 03/03/25 08:20 Glucagon Inj 1 Mg Vial IM Q15MIN PRN BG <70, and no IV access Insulin Human Lispro 0 unit 03/06/25 06:00 03/21/25 11:45 Insulin Lispro (Admelog) 1 Unit/0.01 Ml Unit SC 04/05/25 05:59 1 unit Q6H KOURTNEY Administration Protocol Magnesium Hydroxide 30 ml 02/27/25 09:24 Milk Of Magnesia Susp 30 Ml Udc PO 03/29/25 09:23 QDAY PRN CONSTIPATION Ondansetron HCl 4 mg 03/05/25 20:46 03/09/25 03:49 Ondansetron Inj 2 Mg/Ml Inj 2 Ml IV 04/04/25 20:45 4 mg Q6HR PRN Administration NAUSEA OR VOMITING Protocol Pantoprazole Sodium 40 mg 02/27/25 11:15 03/21/25 09:26 Pantoprazole Inj 40 Mg Vial IV 03/29/25 11:14 40 mg QDAY KOURTNEY Administration Rivaroxaban 20 mg 03/04/25 17:30 03/21/25 16:54 Rivaroxaban 10 Mg Tablet PO 04/03/25 17:29 20 mg WSUPPER KOURTNEY Administration Plan Assessment 64-year-old male with past medical history of DM2, hypertension, A-fib, and Jehova's witness was admitted to the ICU on 02/27/2025 for shock and acute hypoxic respiratory failure. #Right diastolic CHF, improved Echo could not visualize all chambers with limited ability to determine patient's ejection fraction. Given body habitus, history of obstructive sleep apnea and obesity hypoventilation syndrome, right heart failure suspected. Lower pedal edema likely combination of heart failure and third spacing. [place] 03/15 showed elevated RAP 25 PAP 38 PCWP 23. [place] Mary 03/16/2025 PCWP 9 (=17-8) [place] Mary 03/19/2025: RAP 8, PAP 27, PCWP 7 Dry weight: 197.9 Dry BNP 135 High cardiac output Plan: ? Continuing to hold Bumex - Daily weights - Strict I&O #Hx of A-fib [id number] score of 3 points indicating 3.2% risk of stroke per year HAS-BLED: 0 Plan: - Continue PO amiodarone 200 mg qday with small sips of water ? Potassium and magnesium above 4 and 2 respectively - Resumed Xarelto ? Telemetry #Acute on chronic hypoxic and hypercapnic respiratory failure #Obesity hypoventilation syndrome and obstructive sleep apnea #Community-acquired pneumonia, Enterobacter [place] #Tracheostomy Patient was intubated on 02/27/2025, extubated 03/03/2025. Reintubated on 03/06/2025 and extubated 03/07/2025. Reintubated 03/10/2025 for hypercapnic encephalopathy Tracheostomy tube placed 03/15 [place] 03/19/2025 PEEP 8, RR 10, FiO2 40, TV 420 Blow-by during the day, ventilation at night will continue to feed patient, with hopes of mentation improving and possible removal of tracheostomy Patient will need PMV valve if tracheostomy stays Plan: - Continue vent, wean as tolerated #KENIA Pre-renal from cardiorenal and edema in the setting of third spacing, low albumin. Bumex drip discontinued. Right heart cath shows CVP 8, shows appropriate diuresis, however patient will need some fluid at this time Plan: - Nephrology following, Dr. Gannon, appreciate recommendations ? Water flushes 100 cc/hour #Hypernatremia, Hyper-osmolar Free water deficit 4.2 L for goal Na 147 Plan: ? Free water flushes 100 cc every hour ? 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 NG placement lost, unable to replace. DR. Doty consulted and will re-insert NG tube. General surgery, IR unable to do J- tube given history of daniel-en-y gastric bypass. Patient would benefit from TPN/PPN. Resumed tube feeds via NG tube Glucerna IR unable to put in PICC line today for TPN Plan: -Glucerna 1.[address] recommendations via NG tube, water flushes 100 cc an hour #Morbid obesity #DM2 A1C 7.6 on 03/05/2025 Patient has a BMI of 79.5 Plan: - ISS - Hypoglycemia protocol ordered #Normocytic Anemia likely secondary to anemia of chronic disease given normal MCV. No acute intervention, continue to monitor #Leukocytosis, resolved #Enterobacter cloacoe pneumonia, resolved. Finished Rocephin (03/06/2025) - Cefepime 03/18/2025, completed #Acute encephalopathy, resolved #Health Maintenance Disposition: Telemetry DVT prophylaxis: Heparin GI prophylaxis: Protonix Diet: NG tube feeds with Glucerna CODE STATUS: Full Patient seen and care discussed with my senior resident, Dr. Bay, and my attending physician, Dr. Ravin Shields, PGY-1 Attending Provider Attestation/Addendum I attest that I was physically present for the evaluation, physical examination, lab and imaging review of the patient with the residents. I discussed the case with the residents and agree with the findings and plans of care as documented above. Cortez Alicia MD
--- NOTE | 2025-03-21 20:41 | PD.IMPROG ---
Documentation for date of: 03/21/25 Subjective Subjective Interval history: NGT in place enteral feeding via the NGT No issues so far with the gastric residue Exam Vital Signs Temp Pulse Resp BP Pulse Ox O2 Del Method O2 Flow Rate 96.8 F 109 H 17 113/88 H 99 Mechanical Ventilation 10 03/21/25 16:00 03/21/25 16:00 03/21/25 16:00 03/21/25 16:00 03/21/25 16:00 03/21/25 16:00 03/21/25 16:00 FiO2 40 03/21/25 16:00 Objective Labs 03/21/25 05:50 03/21/25 15:00 Labs: Laboratory Results - last 24 hr 03/20/25 03/21/25 03/21/25 23:09 05:50 15:00 WBC 10.6 RBC 4.11 L Hgb 11.5 L Hct 37.6 L MCV 92 MCH 28.0 MCHC 30.6 L RDW Std Deviation 48.7 H Plt Count 262 Neut % (Auto) 75 Lymph % (Auto) 8 L [place] % (Auto) 13 H Eos % (Auto) 3 Baso % (Auto) 1 Neut # (Auto) 7.9 H Lymph # (Auto) 0.8 L [place] # (Auto) 1.4 H Eos # (Auto) 0.3 Baso # (Auto) 0.1 Immature Gran # (Auto) 0.11 H Absolute Nucleated RBC 0.00 Immature Gran % 1 H Nucleated RBC % 0 PT 13.1 H INR 1.2 APTT 27.4 Sodium 151 H 153 H 151 H Potassium 3.9 4.0 3.6 Chloride 108 H 107 107 Carbon Dioxide 38.5 H 37.4 H 37.1 H Anion Gap 5 L 9 7 BUN 69 H 77 H 71 H Creatinine 2.5 H 2.6 H 2.7 H Estim Creat Clear Calc 48.8 L 47.8 L 46.0 L eGFR 28 L 27 L 25 L BUN/Creatinine Ratio 28 H 30 H 26 H Glucose 209 H 206 H 219 H Calculated Osmolality 325 H 332 H 327 H Calcium 8.7 8.7 8.9 Corrected Calcium 9.3 9.5 Phosphorus 3.5 3.6 Magnesium 1.9 Total Bilirubin 0.9 AST 34 ALT 20 Alkaline Phosphatase 127 H D B-Natriuretic Peptide 164 H Total Protein 5.6 L Albumin 3.3 L 3.0 L Globulin 2.6 Albumin/Globulin Ratio 1.2 Impressions Impression: Failure to thrive enteral feeding via the NGT I would still prefer when the patient improves to have an IR placed a jejunostomy tube at a tertiary center ABG Interpretation ABG results: 02/27/25 02/28/25 03/01/25 06:55 04:57 04:39 ABG pH 7.27 L 7.37 D 7.41 ABG pCO2 57 H 48 44 ABG pO2 101 78 L D 69 L ABG HCO3 26 28 H 28 H ABG O2 Saturation 98 95 93 ABG Base Excess -2 2 3 VBG pH VBG pCO2 VBG pO2 VBG Base Excess 03/01/25 03/01/25 03/02/25 13:15 14:52 04:25 ABG pH Cancelled 7.41 7.45 ABG pCO2 Cancelled 45 42 ABG pO2 Cancelled 53 L* 66 L ABG HCO3 Cancelled 28 H 29 H ABG O2 Saturation Cancelled 85 L 92 ABG Base Excess Cancelled 3 5 H VBG pH VBG pCO2 VBG pO2 VBG Base Excess 03/03/25 03/05/25 03/05/25 04:40 16:30 16:55 ABG pH 7.45 Cancelled 7.34 L D ABG pCO2 43 Cancelled 72 H* D ABG pO2 72 L Cancelled 83 ABG HCO3 30 H Cancelled 38 H ABG O2 Saturation 94 Cancelled 95 ABG Base Excess 5 H Cancelled 9 H VBG pH VBG pCO2 VBG pO2 VBG Base Excess 03/05/25 03/06/25 03/06/25 23:36 01:48 05:22 ABG pH 7.37 7.34 L 7.52 H D ABG pCO2 67 H 74 H* 47 D ABG pO2 150 H D 88 D 160 H D ABG HCO3 38 H 40 H 38 H ABG O2 Saturation 99 H 96 100 H ABG Base Excess 10 H 11 H 13 H VBG pH VBG pCO2 VBG pO2 VBG Base Excess 03/06/25 03/07/25 03/07/25 17:10 05:00 14:03 ABG pH 7.46 H ABG pCO2 53 H ABG pO2 65 L D ABG HCO3 38 H ABG O2 Saturation 93 ABG Base Excess 12 H VBG pH 7.50 7.52 VBG pCO2 50 47 VBG pO2 70 H 61 H VBG Base Excess 13 H 14 H 03/09/25 03/09/25 03/09/25 08:17 10:25 17:29 ABG pH 7.25 L D 7.29 L 7.29 L ABG pCO2 93 H* D 85 H* 88 H* ABG pO2 81 L 57 L* D 85 D ABG HCO3 41 H 40 H 43 H ABG O2 Saturation 95 89 L 97 ABG Base Excess 10 H 10 H 12 H VBG pH VBG pCO2 VBG pO2 VBG Base Excess 03/09/25 03/10/25 03/10/25 23:24 07:17 11:25 ABG pH 7.32 L 7.28 L 7.31 L ABG pCO2 78 H* D 90 H* D 81 H* ABG pO2 69 L 47 L* D 63 L ABG HCO3 40 H 43 H 41 H ABG O2 Saturation 94 80 L 93 ABG Base Excess 11 H 12 H 11 H VBG pH VBG pCO2 VBG pO2 VBG Base Excess 03/10/25 03/11/25 03/12/25 16:56 04:19 04:42 ABG pH 7.40 7.48 H 7.43 ABG pCO2 66 H D 54 H D 59 H ABG pO2 68 L 67 L 77 L ABG HCO3 41 H 40 H 39 H ABG O2 Saturation 94 94 96 ABG Base Excess 13 H 15 H 12 H VBG pH VBG pCO2 VBG pO2 VBG Base Excess 03/13/25 03/14/25 03/15/25 04:32 04:25 04:37 ABG pH 7.47 H 7.46 H 7.41 ABG pCO2 53 H 50 H 56 H ABG pO2 60 L 70 L 69 L ABG HCO3 38 H 36 H 35 H ABG O2 Saturation 93 95 95 ABG Base Excess 13 H 10 H 9 H VBG pH VBG pCO2 VBG pO2 VBG Base Excess 03/16/25 03/16/25 03/17/25 04:54 09:53 04:35 ABG pH 7.45 7.48 H 7.47 H ABG pCO2 51 H 49 H 53 H ABG pO2 68 L 34 L* D 87 D ABG HCO3 35 H 37 H 38 H ABG O2 Saturation 95 67 L 97 ABG Base Excess 10 H 12 H 13 H VBG pH VBG pCO2 VBG pO2 VBG Base Excess 03/18/25 03/19/25 04:26 05:00 ABG pH 7.44 7.45 ABG pCO2 57 H 55 H ABG pO2 107 D 73 L D ABG HCO3 38 H 38 H ABG O2 Saturation 99 H 96 ABG Base Excess 12 H 12 H VBG pH VBG pCO2 VBG pO2 VBG Base Excess Assessment & Plan A&P Narrative # Evaluation for placement of a PEG tube I have tentatively schedule the patient for tomorrow afternoon It is going to be a technical challenge as patient is morbidly obese and there may not be a long enough catheter to intubate the cavity of the stomach Nonetheless it should be given for endoscopic placement of the PEG tube Other medical problems include Acute hypoxic respiratory failure requiring initially endotracheal intubation now tracheostomy and mechanical ventilation Chronic atrial fibrillation Diabetes mellitus type 2 Essential hypertension Thank you very much for the opportunity to participate in the care of this patient Time Spent With Patient Time: Total time spent is greater than 50% in coordination of care (as documented) at patient's floor/unit and/or counseling patient:
[2025-03-21 23:09] LABS: Anion Gap 5 (7-16); BUN/Creatinine Ratio 26 Ratio (12-20); Blood Urea Nitrogen 69 mg/dL (9-23); Calcium 8.7 mg/dL (8.3-10.6); Carbon Dioxide 38.9 mMol/L (20.0-31.0); Chloride 107 mMol/L (98-107); Creatinine (Component) 2.7 mg/dL (0.6-1.3); Glucose 224 mg/dL (74-106); Osmolality,Calculated 326 (275-295); Potassium 3.6 mMol/L (3.4-5.1); Sodium 151 mMol/L (136-145); eGFR 25 See Note
[2025-03-22] VITALS (12 sets, daily range): BP systolic 111–171; BP diastolic 80–96; PULSE 64–116; RESP 12–35; TEMP 35.9–36.2; O2SAT 90–100; BMI 69.7
[2025-03-22] MEDS: INSULIN LISPRO (AdmeLOG) 1 UNIT/0.01 ML UNIT SC ×5 (00:32→23:14)
[2025-03-22 06:35] LABS: Alanine Aminotransferase 16 U/L (10-49); Albumin, Serum 3.2 gm/dL (3.4-4.8); Albumin/Globulin Ratio 1.2 (1.2-2.2); Alkaline Phosphatase 115 U/L (46-116); Anion Gap 5 (7-16); Aspartate Amino Transferase 34 U/L (0-34); BUN/Creatinine Ratio 25 Ratio (12-20); Bilirubin,Total 0.9 mg/dL (0.3-1.2); Blood Urea Nitrogen 66 mg/dL (9-23); Calcium 8.8 mg/dL (8.3-10.6); Calcium (Corrected) 9.4 mg/dL (8.5-10.1); Carbon Dioxide 38.4 mMol/L (20.0-31.0); Chloride 107 mMol/L (98-107); Creatinine (Component) 2.6 mg/dL (0.6-1.3); Estimated Creatinine Clearance 47.6 mL/min (>60); Globulin 2.7 gm/dL (2.3-3.5); Glucose 236 mg/dL (74-106); Magnesium 2.2 mg/dL (1.6-2.6); Osmolality,Calculated 325 (275-295); Phosphorous 3.5 mg/dL (2.4-5.1); Potassium 3.9 mMol/L (3.4-5.1); Sodium 150 mMol/L (136-145); Total Protein 5.9 gm/dL (5.7-8.2); eGFR 27 See Note
[2025-03-22] MEDS: amLODIPine BESYLATE 5 MG TABLET 10 MG PO (08:57)
[2025-03-22] MEDS: PANTOPRAZOLE 40 MG TABLET PO (08:57)
[2025-03-22] MEDS: AMIODARONE HCL 200 MG TABLET PO (08:57)
--- NOTE | 2025-03-22 09:00 | PC.WOUND ---
Made aware by Frederick CASTELAN, baratic bed intermittently alarms. I was unable to fix or reset bed. Replacement bed requested by , will be delivered today. Nursing to transition to [facility] pressure redistribution surface.
--- NOTE | 2025-03-22 09:08 | PC.SS ---
Follow up note: Pt has a trach. Swallow evaluation. Pt is on blow by in day and vent at night. Pt will have valve changed for trach. Per Dr. Alicia pt possibly will require LTAC placement at [facility].
--- NOTE | 2025-03-22 09:42 | PC.SS ---
SS attempted to call patinent's dad, Zia Ortega at [phone] but phone# is incorrect. Dad's correct phone# [phone]. SS has called dad to arrange goals of care meeting for 11:30am with Dr. Alicia. SS called Trang from patient registration to update patient's facesheet with dad's correct phone# [phone].
--- NOTE | 2025-03-22 14:22 | ESPR_ITS ---
Documentation for date of: 03/23/25 Subjective Subjective Interval history: This 64-year-old male admitted yesterday from the ER for acute hypoxic respiratory failure. The patient has super morbid obesity with a BMI of 85. He is felt to have underlying biventricular heart failure, with right sided predominance and treated for questionable pneumonia. Transfer out of the ICU after aggressive diuresis with RHC confirmed PCWP in single digits along with normal CVP off MV. Patient using vent overnigt and on blow by during the day. Weight is stable. Nephrology and cardiolog following to help with management. Critical Care Note Critical care time (min.): 0 Exam Vital Signs Temp Pulse Resp BP Pulse Ox O2 Del Method O2 Flow Rate 96.9 F 96 17 144/98 H 98 Blow-by 12 03/24/25 00:00 03/24/25 00:01 03/24/25 00:00 03/24/25 00:00 03/24/25 00:01 03/22/25 16:00 03/23/25 19:55 FiO2 40 03/24/25 00:01 Narrative Exam GEN: NAD, AAOX3, able to mouth words but hard to read lips HEENT: Trach is midline, blow by in place Chest: symmetric rise, no accessory muscle use PULM: Diminished breath sounds bilaterally CVS: S1/S2+ RRR Abd: soft/ NT, obese EXT: minimal edema, no cyanosis / clubbing Physical Exam Completion Physical Exam Complete?: Yes Objective - Family Services Assistant Labs 03/23/25 05:35 03/23/25 20:31 Labs: Laboratory Results - last 24 hr 03/23/25 03/23/25 03/23/25 05:35 16:36 20:31 WBC 12.5 H RBC 4.24 L Hgb 12.0 L Hct 39.6 L MCV 93 MCH 28.3 MCHC 30.3 L RDW Std Deviation 50.2 H Plt Count 216 D Neut % (Auto) 76 Lymph % (Auto) 8 L [place] % (Auto) 11 Eos % (Auto) 4 Baso % (Auto) 0 Neut # (Auto) 9.5 H Lymph # (Auto) 1.0 [place] # (Auto) 1.4 H Eos # (Auto) 0.5 Baso # (Auto) 0.1 Immature Gran # (Auto) 0.11 H Absolute Nucleated RBC 0.00 Immature Gran % 1 H Nucleated RBC % 0 Sodium 149 H Cancelled 146 H Potassium 3.6 Chloride 106 Carbon Dioxide 36.7 H Anion Gap 6 L BUN 63 H Creatinine 2.4 H Estim Creat Clear Calc 51.6 L eGFR 29 L BUN/Creatinine Ratio 26 H Glucose 260 H Calculated Osmolality 323 H Calcium 8.6 Corrected Calcium 9.2 Phosphorus 3.4 Magnesium 2.2 Total Bilirubin 0.9 AST 28 ALT 15 Alkaline Phosphatase 137 H D Total Protein 6.1 Albumin 3.3 L Globulin 2.8 Albumin/Globulin Ratio 1.2 Assessment & Plan Problem List (1) Respiratory failure: Status: Acute Additional Assessment Additional Assessment: Acute on chronic hypoxic respiratory failure Right >Left heart failure, biventricular CKD OHS/BASIA s/p tracheostomy - Maintain on vent overnight, can transition to PS overnight/ best with naps as well - Keep on blow by or trach collar as tolerated during the day - Optimize fluid status, cautious free water to fix Na - Monitor Cr and HCO3 as well, both in stable range, was notably adequately diuresed when he left ICU, BNP down to 164- you can trend this in right heart failure, predictive of outcome as well - Needs to get to PM valve placement for ability to have speech and work on swallow for diet resumption, using NG for tube feeds for now is reasonable for a few weeks in interim as no able o get PEG and parenteral nutrition would also risk infection and unable to get PICC line by IR at our facility either - Work on rehabilitation from now while awaiting placement - Pulmonology available and will follow up intermittently/ as needed Provider Notation Provider Notation: Although this document has been carefully reviewed, there may still be some phonetic and other typographical errors. These errors are purely grammatical due to imperfections in the software program and should not be construed in any way to compromise the substance of the patient's medical care during this visit. Thank you for the opportunity and privilege in assisting you with this patient's care and management.
--- NOTE | 2025-03-22 15:03 | ESPR_ITS ---
Documentation for date of: 03/22/25 Subjective Subjective Interval history: Patient seen and examined at the bedside. Patient has tracheostomy inplace and is unable to communicate much Telemetry reviewed and rest of the vital signs including the heart rate appears to be stable. Labs showed that the patient still continues to have hyponatremia at 150 and also has elevated creatinine at 2.6 and a BUN of 66. Patient is on renal water flushes for the hyponatremia and creatinine continues to improve and baseline creatinine appears to be around 2.0 Recommend to continue with free water flushes for now. Patient is morbidly obese with multiple comorbidities as mentioned below and overall prognosis appears to be poor Primary team to discuss with the family regarding goals of care Exam Vital Signs Temp Pulse Resp BP Pulse Ox O2 Del Method O2 Flow Rate 96.9 F 74 25 H 111/80 95 Blow-by 12 03/22/25 08:00 03/22/25 12:35 03/22/25 12:35 03/22/25 08:57 03/22/25 12:35 03/22/25 08:00 03/22/25 12:35 FiO2 40 03/22/25 12:35 Narrative Exam Gen: Well-developed and well-nourished morbidly obese male. HEENT: NCAT, PERRLA, EOMI, MMM, anicteric conjunctivae, tracheostomy in place. CVS: Decreased heart sounds, normal S1 and S2. RRR. No M/R/G. Resp: Decreased breath sounds B/L. No rhonchi, rales, crackles or wheezing. Abd: soft, morbidly obese, non-tender, non-distended. BS+ in all 4 quadrants. Pitting edema over bilateral flanks and sides. MSK: Good ROM in BUE & BLE. 3+ pitting edema BLE. Neuro: Limited exam due to medical condition. Objective Labs 03/21/25 05:50 03/22/25 05:15 Labs: Laboratory Results - last 24 hr 03/21/25 03/21/25 03/22/25 15:00 22:35 05:15 Sodium 151 H 151 H 150 H Potassium 3.6 3.6 3.9 Chloride 107 107 107 Carbon Dioxide 37.1 H 38.9 H 38.4 H Anion Gap 7 5 L 5 L BUN 71 H 69 H 66 H Creatinine 2.7 H 2.7 H 2.6 H Estim Creat Clear Calc 46.0 L 46.0 L 47.6 L eGFR 25 L 25 L 27 L BUN/Creatinine Ratio 26 H 26 H 25 H Glucose 219 H 224 H 236 H Calculated Osmolality 327 H 326 H 325 H Calcium 8.9 8.7 8.8 Corrected Calcium 9.4 Phosphorus 3.5 Magnesium 2.2 Total Bilirubin 0.9 AST 34 ALT 16 Alkaline Phosphatase 115 Total Protein 5.9 Albumin 3.2 L Globulin 2.7 Albumin/Globulin Ratio 1.2 ABG Interpretation ABG results: 02/27/25 02/28/25 03/01/25 06:55 04:57 04:39 ABG pH 7.27 L 7.37 D 7.41 ABG pCO2 57 H 48 44 ABG pO2 101 78 L D 69 L ABG HCO3 26 28 H 28 H ABG O2 Saturation 98 95 93 ABG Base Excess -2 2 3 VBG pH VBG pCO2 VBG pO2 VBG Base Excess 03/01/25 03/01/25 03/02/25 13:15 14:52 04:25 ABG pH Cancelled 7.41 7.45 ABG pCO2 Cancelled 45 42 ABG pO2 Cancelled 53 L* 66 L ABG HCO3 Cancelled 28 H 29 H ABG O2 Saturation Cancelled 85 L 92 ABG Base Excess Cancelled 3 5 H VBG pH VBG pCO2 VBG pO2 VBG Base Excess 03/03/25 03/05/25 03/05/25 04:40 16:30 16:55 ABG pH 7.45 Cancelled 7.34 L D ABG pCO2 43 Cancelled 72 H* D ABG pO2 72 L Cancelled 83 ABG HCO3 30 H Cancelled 38 H ABG O2 Saturation 94 Cancelled 95 ABG Base Excess 5 H Cancelled 9 H VBG pH VBG pCO2 VBG pO2 VBG Base Excess 03/05/25 03/06/25 03/06/25 23:36 01:48 05:22 ABG pH 7.37 7.34 L 7.52 H D ABG pCO2 67 H 74 H* 47 D ABG pO2 150 H D 88 D 160 H D ABG HCO3 38 H 40 H 38 H ABG O2 Saturation 99 H 96 100 H ABG Base Excess 10 H 11 H 13 H VBG pH VBG pCO2 VBG pO2 VBG Base Excess 0403/07/25 03/07/25 17:10 05:00 14:03 ABG pH 7.46 H ABG pCO2 53 H ABG pO2 65 L D ABG HCO3 38 H ABG O2 Saturation 93 ABG Base Excess 12 H VBG pH 7.50 7.52 VBG pCO2 50 47 VBG pO2 70 H 61 H VBG Base Excess 13 H 14 H 03/09/25 03/09/25 03/09/25 08:17 10:25 17:29 ABG pH 7.25 L D 7.29 L 7.29 L ABG pCO2 93 H* D 85 H* 88 H* ABG pO2 81 L 57 L* D 85 D ABG HCO3 41 H 40 H 43 H ABG O2 Saturation 95 89 L 97 ABG Base Excess 10 H 10 H 12 H VBG pH VBG pCO2 VBG pO2 VBG Base Excess 03/09/25 03/10/25 03/10/25 23:24 07:17 11:25 ABG pH 7.32 L 7.28 L 7.31 L ABG pCO2 78 H* D 90 H* D 81 H* ABG pO2 69 L 47 L* D 63 L ABG HCO3 40 H 43 H 41 H ABG O2 Saturation 94 80 L 93 ABG Base Excess 11 H 12 H 11 H VBG pH VBG pCO2 VBG pO2 VBG Base Excess 03/10/25 03/11/25 03/12/25 16:56 04:19 04:42 ABG pH 7.40 7.48 H 7.43 ABG pCO2 66 H D 54 H D 59 H ABG pO2 68 L 67 L 77 L ABG HCO3 41 H 40 H 39 H ABG O2 Saturation 94 94 96 ABG Base Excess 13 H 15 H 12 H VBG pH VBG pCO2 VBG pO2 VBG Base Excess 03/13/25 03/14/25 03/15/25 04:32 04:25 04:37 ABG pH 7.47 H 7.46 H 7.41 ABG pCO2 53 H 50 H 56 H ABG pO2 60 L 70 L 69 L ABG HCO3 38 H 36 H 35 H ABG O2 Saturation 93 95 95 ABG Base Excess 13 H 10 H 9 H VBG pH VBG pCO2 VBG pO2 VBG Base Excess 03/16/25 03/16/25 03/17/25 04:54 09:53 04:35 ABG pH 7.45 7.48 H 7.47 H ABG pCO2 51 H 49 H 53 H ABG pO2 68 L 34 L* D 87 D ABG HCO3 35 H 37 H 38 H ABG O2 Saturation 95 67 L 97 ABG Base Excess 10 H 12 H 13 H VBG pH VBG pCO2 VBG pO2 VBG Base Excess 03/18/25 03/19/25 04:26 05:00 ABG pH 7.44 7.45 ABG pCO2 57 H 55 H ABG pO2 107 D 73 L D ABG HCO3 38 H 38 H ABG O2 Saturation 99 H 96 ABG Base Excess 12 H 12 H VBG pH VBG pCO2 VBG pO2 VBG Base Excess Assessment & Plan A&P Narrative 64-year-old male with significant past medical history of hypertension, diabetes mellitus, A-fib was admitted to the ICU on 02/27/2025 after coming in with altered mental status and shortness of breath, intubated for acute hypoxic respiratory failure and had suspected obesity hypoventilation syndrome/obstructive sleep apnea/pneumonia and acute kidney injury. He was extubated on 03/03 and downgraded then re-intubated on 03/06 due to confusion and tachypneia. He was then extubated and downgraded to the floor on 03/07. On 03/10, patient again had decreased mentation on the BiPAP so was reintubated and upgraded. Cardiology has been consulted for suspected heart failure. #Right congestive heart failure with preserved EF. #Severe BASIA/OHS. #Hypernatremia. Echo on this admission showed poor quality images secondary to the patient's body habitus so was a technically limited study. Suspect chronic right heart failure in the setting of chronic obesity hypoventilation syndrome and obstructive sleep apnea. Currently appears to be more pulmonary component to respiratory failure than cardiac. Requiring ventilation support. -Echo 02/27/25: IVC appears to be dilated and also estimated RVSP also appears to be at least moderately elevated at 55 mmHg. 03/14/25: Will hold dirutics for now , he was given IV fluids yesterday. 03/15/25 : [place] catheter was placed by ICU team which showed PA pressure of more than 30s and wedge pressure was also high . started him on bumex drip . will continue the albumin . he is getting his peg tube today 03/16/25: ICU team tried another [place] catheter today which showed RA pressure of 25, PA pressure of 38, PCWP of 23. Plan is to continue Bumex for him. Cr stable at 2.5 03/17/2025: Net fluid balance -3350 cc. ICU team held Bumex due to significant electrolyte abnormalities, potassium 2.7. Once repleted Bumex drip will be resumed. Continue current management and monitor patient. 03/18/2025: net fluid balance -1650 , he received 1 dose of diamox yesterday. will continue to diures, he is off ventillor in blowby with PRN ventillator when he gets tired. 03/19/2025: no acute overnight event.Balance of -950 . ICU team put a swan catheter which showed he is adequately diressed for now, so bumex on hold for now. pending pegtube placement, its been difficult to do the procedure consedering his Rouxy history. Plan: 03/20/2025: Will hold dirutics for now, he was given IV LR and FWF via NG for hypernatremia. 03/21/2025: no acute overnight event. free water flushes increase today for hypernatremia . Xarelto resumed . bumex on hold ,Dr Doty recommending jejunostomy placement. #Atrial fibrillation, rate controlled. Patient notes positive history of afib. He had previously been on metoprolol succinate 100 mg BID. Currently appears rate-controlled in the 100s. CHADS-VASc score 4 Plan: - Metoprolol on hold in setting of right heart failure . -Resume Xarelto. -Continue amiodarone 200 mg qday. -Keep potassium >4.0 and mag >2.0. Rest of conditions to continue current management per primary team: #Acute hypoxic respiratory failure s/p tracheostomy. #Morbid obesity. #Community acquired pneumonia. #Elevated LFTs, resolved. #Hyperbilirubinemia, resolved. #History of type 2 diabetes. #Lactic acidosis, resolved. #KENIA on CKD. 03/22/2025: Patient has tracheostomy inplace and is unable to communicate much Telemetry reviewed and rest of the vital signs including the heart rate appears to be stable. Labs showed that the patient still continues to have hyponatremia at 150 and also has elevated creatinine at 2.6 and a BUN of 66. Patient is on renal water flushes for the hyponatremia and creatinine continues to improve and baseline creatinine appears to be around 2.0 Recommend to continue with free water flushes for now. Patient is morbidly obese with multiple comorbidities as mentioned below and overall prognosis appears to be poor Primary team to discuss with the family regarding goals of care. Management of rest of the medical conditions as per primary team and other consultants. Thank you for the consult and allowing me to participate in the care of the patient. Cardiology will continue to follow. Kobe Barahona M.D. Interventional Cardiology Time Spent With Patient Time: Total time spent is greater than 50% in coordination of care (as documented) at patient's floor/unit and/or counseling patient:
--- NOTE | 2025-03-22 16:52 | PD.HHPROG ---
Documentation for date of: 03/22/25 Subjective - Hospitalist Subjective Interval history: At bedside today, patient appears comfortable. Has been on blow-by throughout the day, tolerating well. Had a goals of care meeting with patient and family at bedside, explained about his ongoing medical problems, ongoing treatment plan, available options. Patient wished to be full code and continue with aggressive management. Discussed with RT, patient failed Passy-Daly valve. We will discuss with grid casting machine operator helper tomorrow for available options. Lab results are stable with improving sodium and kidney function. Continues to be on free water flushes at 100 cc/h. Review of Systems Review of Systems Systems Reviewed: All systems reviewed, normal except as documented Exam Vital Signs Temp Pulse Resp BP Pulse Ox O2 Del Method O2 Flow Rate 96.9 F 64 31 H 114/93 H 96 Blow-by 10 03/22/25 20:00 03/22/25 20:00 03/22/25 20:00 03/22/25 20:54 03/22/25 20:00 03/22/25 16:00 03/22/25 16:00 FiO2 40 03/22/25 12:35 Narrative General: Alert and oriented, morbidly obese HEENT: EOMI, PERRLA, no pallor or icterus, dry mucous membrane, tracheostomy tube on blow-by Cardio: RRR, S1 and S2 heard without murmurs Respiratory: Clear to auscultate bilaterally, no wheeze or crackles MSK: Bilateral pitting edema with wrinkling Neuro:Alert and Oriented x 4, moving all her extremities Psych: Appropriate mood and behaviour Objective - Hospitalist Labs Diagram: 03/21/25 05:50 03/22/25 05:15 Labs: Laboratory Results - last 24 hr 03/21/25 03/22/25 22:35 05:15 Sodium 151 H 150 H Potassium 3.6 3.9 Chloride 107 107 Carbon Dioxide 38.9 H 38.4 H Anion Gap 5 L 5 L BUN 69 H 66 H Creatinine 2.7 H 2.6 H Estim Creat Clear Calc 46.0 L 47.6 L eGFR 25 L 27 L BUN/Creatinine Ratio 26 H 25 H Glucose 224 H 236 H Calculated Osmolality 326 H 325 H Calcium 8.7 8.8 Corrected Calcium 9.4 Phosphorus 3.5 Magnesium 2.2 Total Bilirubin 0.9 AST 34 ALT 16 Alkaline Phosphatase 115 Total Protein 5.9 Albumin 3.2 L Globulin 2.7 Albumin/Globulin Ratio 1.2 ABG Interpretation ABG results: 02/27/25 02/28/25 03/01/25 06:55 04:57 04:39 ABG pH 7.27 L 7.37 D 7.41 ABG pCO2 57 H 48 44 ABG pO2 101 78 L D 69 L ABG HCO3 26 28 H 28 H ABG O2 Saturation 98 95 93 ABG Base Excess -2 2 3 VBG pH VBG pCO2 VBG pO2 VBG Base Excess 03/01/25 03/01/25 03/02/25 13:15 14:52 04:25 ABG pH Cancelled 7.41 7.45 ABG pCO2 Cancelled 45 42 ABG pO2 Cancelled 53 L* 66 L ABG HCO3 Cancelled 28 H 29 H ABG O2 Saturation Cancelled 85 L 92 ABG Base Excess Cancelled 3 5 H VBG pH VBG pCO2 VBG pO2 VBG Base Excess 03/03/25 03/05/25 03/05/25 04:40 16:30 16:55 ABG pH 7.45 Cancelled 7.34 L D ABG pCO2 43 Cancelled 72 H* D ABG pO2 72 L Cancelled 83 ABG HCO3 30 H Cancelled 38 H ABG O2 Saturation 94 Cancelled 95 ABG Base Excess 5 H Cancelled 9 H VBG pH VBG pCO2 VBG pO2 VBG Base Excess 03/05/25 03/06/25 03/06/25 23:36 01:48 05:22 ABG pH 7.37 7.34 L 7.52 H D ABG pCO2 67 H 74 H* 47 D ABG pO2 150 H D 88 D 160 H D ABG HCO3 38 H 40 H 38 H ABG O2 Saturation 99 H 96 100 H ABG Base Excess 10 H 11 H 13 H VBG pH VBG pCO2 VBG pO2 VBG Base Excess 03/06/25 03/07/25 03/07/25 17:10 05:00 14:03 ABG pH 7.46 H ABG pCO2 53 H ABG pO2 65 L D ABG HCO3 38 H ABG O2 Saturation 93 ABG Base Excess 12 H VBG pH 7.50 7.52 VBG pCO2 50 47 VBG pO2 70 H 61 H VBG Base Excess 13 H 14 H 0403/09/25 03/09/25 08:17 10:25 17:29 ABG pH 7.25 L D 7.29 L 7.29 L ABG pCO2 93 H* D 85 H* 88 H* ABG pO2 81 L 57 L* D 85 D ABG HCO3 41 H 40 H 43 H ABG O2 Saturation 95 89 L 97 ABG Base Excess 10 H 10 H 12 H VBG pH VBG pCO2 VBG pO2 VBG Base Excess 03/09/25 03/10/25 03/10/25 23:24 07:17 11:25 ABG pH 7.32 L 7.28 L 7.31 L ABG pCO2 78 H* D 90 H* D 81 H* ABG pO2 69 L 47 L* D 63 L ABG HCO3 40 H 43 H 41 H ABG O2 Saturation 94 80 L 93 ABG Base Excess 11 H 12 H 11 H VBG pH VBG pCO2 VBG pO2 VBG Base Excess 03/10/25 03/11/25 03/12/25 16:56 04:19 04:42 ABG pH 7.40 7.48 H 7.43 ABG pCO2 66 H D 54 H D 59 H ABG pO2 68 L 67 L 77 L ABG HCO3 41 H 40 H 39 H ABG O2 Saturation 94 94 96 ABG Base Excess 13 H 15 H 12 H VBG pH VBG pCO2 VBG pO2 VBG Base Excess 03/13/25 03/14/25 03/15/25 04:32 04:25 04:37 ABG pH 7.47 H 7.46 H 7.41 ABG pCO2 53 H 50 H 56 H ABG pO2 60 L 70 L 69 L ABG HCO3 38 H 36 H 35 H ABG O2 Saturation 93 95 95 ABG Base Excess 13 H 10 H 9 H VBG pH VBG pCO2 VBG pO2 VBG Base Excess 03/16/25 03/16/25 03/17/25 04:54 09:53 04:35 ABG pH 7.45 7.48 H 7.47 H ABG pCO2 51 H 49 H 53 H ABG pO2 68 L 34 L* D 87 D ABG HCO3 35 H 37 H 38 H ABG O2 Saturation 95 67 L 97 ABG Base Excess 10 H 12 H 13 H VBG pH VBG pCO2 VBG pO2 VBG Base Excess 03/18/25 03/19/25 04:26 05:00 ABG pH 7.44 7.45 ABG pCO2 57 H 55 H ABG pO2 107 D 73 L D ABG HCO3 38 H 38 H ABG O2 Saturation 99 H 96 ABG Base Excess 12 H 12 H VBG pH VBG pCO2 VBG pO2 VBG Base Excess Assessment & Plan Assessment: 64 years old male with history of diabetes, hypertension, A-fib being managed in ICU for acute on chronic hypoxic and hypercapnic respiratory failure on mechanical ventilator. Underwent tracheostomy currently on blow-by, transferred to medical floor for further management. #Acute on chronic hypoxic and hypercapnic respiratory failure #Obesity hypoventilation syndrome #Ostructive sleep apnea #Community-acquired pneumonia, Enterobacter [place] #Right diastolic CHF, improved Patient was intubated 3 times with respiratory failure Tracheostomy placed on 03/14/2025 with general surgery. Echo could not visualize all chambers with limited ability to determine patient's ejection fraction. Swanz Mary 03/15 showed elevated RAP 25 PAP 38 PCWP 23, improved subsequently Completed antibiotics course Continues to be on blow-by Bumex on hold, patient has KENIA Strict WILLIE's, daily weight #Dysphagia #Tracheostomy J-tube could not be placed with IR and general surgery PEG tube could not be placed with GI PICC line placement has been ordered to start patient on TPN/PPN Gastroenterology on board, NG tube was reinserted Patient receiving tube feeds via NG tube Plan was to place Passy-Daly valve and initiate swallow evaluation but failed as per RT We will discuss with the grid casting machine operator helper tomorrow regarding available options #Acute kidney injury Patient has been receiving tube feeds with free water flushes at 100 cc/h Kidney function improving, BUN/creatinine of 66/2.6 today We will continue with the pluses and monitor her kidney function closely Avoid nephrotoxins and renally dose medication #Hypernatremia Sodium level improved to 150 from 153 yesterday We will continue with free water flushes and recheck sodium level in a.m. #A-fib [id number] score of 3 points indicating 3.2% risk of stroke per year We will continue amiodarone and Xarelto #Morbid obesity #Diabetes mellitus On insulin regimen Hypoglycemia protocol in place #Normocytic Anemia Likely anemia of chronic disease, hemoglobin stable at 11.5 We will continue to monitor with daily CBC DVT prophylaxis: Heparin GI prophylaxis: Protonix Diet: Tube feeding CODE STATUS: Full code Cortez Alicia MD Time Spent with Patient Time: Total time spent is greater than 50% in coordination of care (as documented) at patient's floor/unit and/or counseling patient: Time with patient: Greater than 35 minutes Reason for Continued Stay Reason for continued stay: acute renal failure Quality Measures Quality Measures sepsis Current suspected stage: ruled out Possible source: pulmonary Blood cultures ordered: completed in ED Antibiotic ordered: No Advance care planning discussed with:: patient and other
--- NOTE | 2025-03-22 17:18 | PD.IMPROG ---
Documentation for date of: 03/22/25 Subjective Subjective Interval history: Enteral hyperalimentation via the NGT Exam Vital Signs Temp Pulse Resp BP Pulse Ox O2 Del Method O2 Flow Rate 97.1 F 109 H 25 H 119/92 H 92 L Blow-by 10 03/22/25 16:00 03/22/25 16:00 03/22/25 12:35 03/22/25 16:00 03/22/25 16:00 03/22/25 16:00 03/22/25 16:00 FiO2 40 03/22/25 12:35 Objective Labs 03/21/25 05:50 03/22/25 05:15 Labs: Laboratory Results - last 24 hr 03/21/25 03/22/25 22:35 05:15 Sodium 151 H 150 H Potassium 3.6 3.9 Chloride 107 107 Carbon Dioxide 38.9 H 38.4 H Anion Gap 5 L 5 L BUN 69 H 66 H Creatinine 2.7 H 2.6 H Estim Creat Clear Calc 46.0 L 47.6 L eGFR 25 L 27 L BUN/Creatinine Ratio 26 H 25 H Glucose 224 H 236 H Calculated Osmolality 326 H 325 H Calcium 8.7 8.8 Corrected Calcium 9.4 Phosphorus 3.5 Magnesium 2.2 Total Bilirubin 0.9 AST 34 ALT 16 Alkaline Phosphatase 115 Total Protein 5.9 Albumin 3.2 L Globulin 2.7 Albumin/Globulin Ratio 1.2 Impressions Impression: # Enteral hyperalimentation via NGT in the setting of Diego-en-Y gastrojejunostomy Continue enteral feeding # Status post tracheostomy and mechanically ventilated ABG Interpretation ABG results: 02/27/25 02/28/25 03/01/25 06:55 04:57 04:39 ABG pH 7.27 L 7.37 D 7.41 ABG pCO2 57 H 48 44 ABG pO2 101 78 L D 69 L ABG HCO3 26 28 H 28 H ABG O2 Saturation 98 95 93 ABG Base Excess -2 2 3 VBG pH VBG pCO2 VBG pO2 VBG Base Excess 03/01/25 03/01/25 03/02/25 13:15 14:52 04:25 ABG pH Cancelled 7.41 7.45 ABG pCO2 Cancelled 45 42 ABG pO2 Cancelled 53 L* 66 L ABG HCO3 Cancelled 28 H 29 H ABG O2 Saturation Cancelled 85 L 92 ABG Base Excess Cancelled 3 5 H VBG pH VBG pCO2 VBG pO2 VBG Base Excess 03/03/25 03/05/25 03/05/25 04:40 16:30 16:55 ABG pH 7.45 Cancelled 7.34 L D ABG pCO2 43 Cancelled 72 H* D ABG pO2 72 L Cancelled 83 ABG HCO3 30 H Cancelled 38 H ABG O2 Saturation 94 Cancelled 95 ABG Base Excess 5 H Cancelled 9 H VBG pH VBG pCO2 VBG pO2 VBG Base Excess 03/05/25 03/06/25 03/06/25 23:36 01:48 05:22 ABG pH 7.37 7.34 L 7.52 H D ABG pCO2 67 H 74 H* 47 D ABG pO2 150 H D 88 D 160 H D ABG HCO3 38 H 40 H 38 H ABG O2 Saturation 99 H 96 100 H ABG Base Excess 10 H 11 H 13 H VBG pH VBG pCO2 VBG pO2 VBG Base Excess 03/06/25 03/07/25 03/07/25 17:10 05:00 14:03 ABG pH 7.46 H ABG pCO2 53 H ABG pO2 65 L D ABG HCO3 38 H ABG O2 Saturation 93 ABG Base Excess 12 H VBG pH 7.50 7.52 VBG pCO2 50 47 VBG pO2 70 H 61 H VBG Base Excess 13 H 14 H 03/09/25 03/09/25 03/09/25 08:17 10:25 17:29 ABG pH 7.25 L D 7.29 L 7.29 L ABG pCO2 93 H* D 85 H* 88 H* ABG pO2 81 L 57 L* D 85 D ABG HCO3 41 H 40 H 43 H ABG O2 Saturation 95 89 L 97 ABG Base Excess 10 H 10 H 12 H VBG pH VBG pCO2 VBG pO2 VBG Base Excess 03/09/25 03/10/25 03/10/25 23:24 07:17 11:25 ABG pH 7.32 L 7.28 L 7.31 L ABG pCO2 78 H* D 90 H* D 81 H* ABG pO2 69 L 47 L* D 63 L ABG HCO3 40 H 43 H 41 H ABG O2 Saturation 94 80 L 93 ABG Base Excess 11 H 12 H 11 H VBG pH VBG pCO2 VBG pO2 VBG Base Excess 03/10/25 03/11/25 03/12/25 16:56 04:19 04:42 ABG pH 7.40 7.48 H 7.43 ABG pCO2 66 H D 54 H D 59 H ABG pO2 68 L 67 L 77 L ABG HCO3 41 H 40 H 39 H ABG O2 Saturation 94 94 96 ABG Base Excess 13 H 15 H 12 H VBG pH VBG pCO2 VBG pO2 VBG Base Excess 03/13/25 03/14/25 03/15/25 04:32 04:25 04:37 ABG pH 7.47 H 7.46 H 7.41 ABG pCO2 53 H 50 H 56 H ABG pO2 60 L 70 L 69 L ABG HCO3 38 H 36 H 35 H ABG O2 Saturation 93 95 95 ABG Base Excess 13 H 10 H 9 H VBG pH VBG pCO2 VBG pO2 VBG Base Excess 03/16/25 03/16/25 03/17/25 04:54 09:53 04:35 ABG pH 7.45 7.48 H 7.47 H ABG pCO2 51 H 49 H 53 H ABG pO2 68 L 34 L* D 87 D ABG HCO3 35 H 37 H 38 H ABG O2 Saturation 95 67 L 97 ABG Base Excess 10 H 12 H 13 H VBG pH VBG pCO2 VBG pO2 VBG Base Excess 03/18/25 03/19/25 04:26 05:00 ABG pH 7.44 7.45 ABG pCO2 57 H 55 H ABG pO2 107 D 73 L D ABG HCO3 38 H 38 H ABG O2 Saturation 99 H 96 ABG Base Excess 12 H 12 H VBG pH VBG pCO2 VBG pO2 VBG Base Excess Assessment & Plan A&P Narrative 64-year-old male with significant past medical history of hypertension, diabetes mellitus, A-fib was admitted to the ICU on 02/27/2025 after coming in with altered mental status and shortness of breath, intubated for acute hypoxic respiratory failure and had suspected obesity hypoventilation syndrome/obstructive sleep apnea/pneumonia and acute kidney injury. He was extubated on 03/03 and downgraded then re-intubated on 03/06 due to confusion and tachypneia. He was then extubated and downgraded to the floor on 03/07. On 03/10, patient again had decreased mentation on the BiPAP so was reintubated and upgraded. Cardiology has been consulted for suspected heart failure. #Right congestive heart failure with preserved EF. #Severe BASIA/OHS. #Hypernatremia. Echo on this admission showed poor quality images secondary to the patient's body habitus so was a technically limited study. Suspect chronic right heart failure in the setting of chronic obesity hypoventilation syndrome and obstructive sleep apnea. Currently appears to be more pulmonary component to respiratory failure than cardiac. Requiring ventilation support. -Echo 02/27/25: IVC appears to be dilated and also estimated RVSP also appears to be at least moderately elevated at 55 mmHg. 03/14/25: Will hold dirutics for now , he was given IV fluids yesterday. 03/15/25 : Haskell catheter was placed by ICU team which showed PA pressure of more than 30s and wedge pressure was also high . started him on bumex drip . will continue the albumin . he is getting his peg tube today 03/16/25: ICU team tried another Haskell catheter today which showed RA pressure of 25, PA pressure of 38, PCWP of 23. Plan is to continue Bumex for him. Cr stable at 2.5 03/17/2025: Net fluid balance -3350 cc. ICU team held Bumex due to significant electrolyte abnormalities, potassium 2.7. Once repleted Bumex drip will be resumed. Continue current management and monitor patient. 03/18/2025: net fluid balance -1650 , he received 1 dose of diamox yesterday. will continue to diures, he is off ventillor in blowby with PRN ventillator when he gets tired. 03/19/2025: no acute overnight event.Balance of -950 . ICU team put a swan catheter which showed he is adequately diressed for now, so bumex on hold for now. pending pegtube placement, its been difficult to do the procedure consedering his Rouxy history. Plan: 03/20/2025: Will hold dirutics for now, he was given IV LR and FWF via NG for hypernatremia. 03/21/2025: no acute overnight event. free water flushes increase today for hypernatremia . Xarelto resumed . bumex on hold ,Dr Doty recommending jejunostomy placement. #Atrial fibrillation, rate controlled. Patient notes positive history of afib. He had previously been on metoprolol succinate 100 mg BID. Currently appears rate-controlled in the 100s. CHADS-VASc score 4 Plan: - Metoprolol on hold in setting of right heart failure . -Resume Xarelto. -Continue amiodarone 200 mg qday. -Keep potassium >4.0 and mag >2.0. Rest of conditions to continue current management per primary team: #Acute hypoxic respiratory failure s/p tracheostomy. #Morbid obesity. #Community acquired pneumonia. #Elevated LFTs, resolved. #Hyperbilirubinemia, resolved. #History of type 2 diabetes. #Lactic acidosis, resolved. #KENIA on CKD. Time Spent With Patient Time: Total time spent is greater than 50% in coordination of care (as documented) at patient's floor/unit and/or counseling patient:
[2025-03-22] MEDS: RIVAROXABAN 10 MG TABLET 20 MG PO (17:31)
[2025-03-23] VITALS (14 sets, daily range): BP systolic 121–154; BP diastolic 92–96; PULSE 57–124; RESP 15–25; TEMP 36.1–36.3; O2SAT 93–98
[2025-03-23] MEDS: INSULIN LISPRO (AdmeLOG) 1 UNIT/0.01 ML UNIT SC ×4 (05:29→23:18)
[2025-03-23 06:15] LABS: Basophils # (Auto) 0.1 Thou/mm3 (0.0-0.2); Basophils % (Auto) 0 % (0-2.5); Eosinophils # (Auto) 0.5 Thou/mm3 (0.0-0.5); Eosinophils % (Auto) 4 % (0-10); Hematocrit 39.6 % (41.0-53.0); Immature Granulocytes % (Auto) 1 % (0-0); Immature Granulocytes Auto 0.11 Thou/mm3 (0.00-0.00); Lymphocytes % (Auto) 8 % (10-50); Mean Corpuscular HGB Conc 30.3 g/dl (31.0-37.0); Mean Corpuscular Hemoglobin 28.3 pg (25.0-35.0); Mean Corpuscular Volume 93 fL (80-100); Monocytes # (Auto) 1.4 Thou/mm3 (0.0-0.8); Monocytes % (Auto) 11 % (0-12); Neutrophils # (Auto) 9.5 Thou/mm3 (1.8-7.7); Neutrophils % (Auto) 76 % (37-80); Nucleated Red Blood Cell % 0 /100 WBC (0); Platelet Count 216 Thou/mm3 (140-440); RDW Standard Deviation 50.2 fL (35.1-43.9); Red Blood Count 4.24 Miln/mm3 (4.50-5.90); White Blood Count 12.5 Thou/mm3 (3.8-10.6)
[2025-03-23 06:35] LABS: Alanine Aminotransferase 15 U/L (10-49); Albumin, Serum 3.3 gm/dL (3.4-4.8); Albumin/Globulin Ratio 1.2 (1.2-2.2); Alkaline Phosphatase 137 U/L (46-116); Anion Gap 6 (7-16); Aspartate Amino Transferase 28 U/L (0-34); BUN/Creatinine Ratio 26 Ratio (12-20); Bilirubin,Total 0.9 mg/dL (0.3-1.2); Blood Urea Nitrogen 63 mg/dL (9-23); Calcium 8.6 mg/dL (8.3-10.6); Calcium (Corrected) 9.2 mg/dL (8.5-10.1); Carbon Dioxide 36.7 mMol/L (20.0-31.0); Chloride 106 mMol/L (98-107); Creatinine (Component) 2.4 mg/dL (0.6-1.3); Estimated Creatinine Clearance 51.6 mL/min (>60); Globulin 2.8 gm/dL (2.3-3.5); Glucose 260 mg/dL (74-106); Osmolality,Calculated 323 (275-295); Potassium 3.6 mMol/L (3.4-5.1); Sodium 149 mMol/L (136-145); Total Protein 6.1 gm/dL (5.7-8.2); eGFR 29 See Note
[2025-03-23] MEDS: POTASSIUM CHLORIDE 10% 20 MEQ/15 ML UDC 40 MEQ GT (09:22)
[2025-03-23] MEDS: amLODIPine BESYLATE 5 MG TABLET 10 MG PO (09:23)
[2025-03-23] MEDS: AMIODARONE HCL 200 MG TABLET PO (09:23)
[2025-03-23] MEDS: LANSOPRAZOLE 30 MG TAB.RAP.DR NG (09:36)
--- NOTE | 2025-03-23 09:40 | ESPR_ITS ---
Documentation for date of: 03/23/25 Subjective Subjective Interval history: Mr. Ortega is a 64-year-old male with past medical history of DM2, hypertension, and A-fib Morbid obesity by BMIwas admitted to the ICU on 02/27/2025 after coming to the ED with complaints of altered mental status and shortness of breath. Patient was intubated in the ED therefore most of the history was taken from chart review and from the parents who are at bedside. EMS found the patient on the floor and he was saturating in the 70s even on high flow nasal cannula. Given his hypoxia patient was intubated in the ED. Patient spiked a fever while in the ED and he became hypotensive unresponsive to IV fluids therefore he was placed on vasopressors. During course of hospitalization patient had decreasing kidney function, patient notably edematous and has vascular congestion on x-ray, therefore was treated with Bumex. Despite diuresis therapy, patient kidney function continued to worsen, diuresis positive patient given free water flushes. Patient has had notably low albumin, ICU team recently started patient on albumin but not at the same time as diuretics. Nephrology was consulted due to worsening kidney function. Tracheostomy placed yesterday. Labs today show WBC 12.5, hemoglobin 12.1, platelets 346. Sodium 149, potassium 3.6, chloride 104, bicarb 33.5. BUN 76, creatinine 2.7, EGFR 25. Hemoglobin A1c 7.6%. 03/16/2025: Patient seen and examined at bedside. Patient had 0.5 L in, 1.8 L urinary output, length of stay net -1.6 L. UA showed trace protein and blood, 2+ bacteria, 3+ uric acid crystals, 99 total protein, 104 creatinine. Catheter showed elevated wedge pressure suspect right heart failure due to chronic pulmonary hypertension related to patient's weight. Sodium increased to 150, free water deficits 4.5 L. Bicarb 34.7, BUN 73, creatinine 2.5, EGFR 28. However improved to 3.3, uric acid 9.0. Renal ultrasound was taken, however was unable to visualize kidneys. Will continue to diurese patient and provide albumin, possibly will need dialysis starting Tuesday if does not improve. 03/17/2025 patient currently seen in ICU. Remains on the ventilator. Patient still with significant anasarca. Blood sugar 143. Blood pressure 127/92, heart rate 85. Hemoglobin 12. Sodium 152, potassium 3.8, bicarbonate 39.7, BUN 70, creatinine 2.3, blood sugar 172, calcium 9.4, phosphorus 3.2, magnesium 1.7, LFTs normal, BNP 389, albumin 3.2, chest x-ray showed significant edema 03/18/2025: Patient seen and examioned in ICU. Remains on ventilator, trached. Significant anasarca. 0.5L in, 3.1L out. sodium 153, bicarb 39.7, BUN 69, creatinine 2.3, eGFR31. Resume free water for hypernatremia, continue bumex for diauresis. 03/19/2025: Patient seen and examined in ICU, ricardo on ventilator, trached. Anasarca significantly improved. 0.8 L in, 1.5 L out. Patient hypernatremia increasing to 153, osmolarity 329. BUN 70, creatinine 2.8, EGFR 28. Hold diuresis, will get Datto-Mary catheter to check if patient remains fluid overloaded. 03/20/2025: Patient seen and examined in ICU, patient physically remains in ICU, downgraded to telemetry. Patient has not been able to get feeding for the last 3 days, had NG tube placed was started on tube feeds earlier today. Patient sodium of 153 this morning, free water deficit 5 L was started on free water flushes at 100 cc/h by primary team. Patient was given 500 cc IV bolus, diuresis continues to be on hold. Patient continues to be on mechanical ventilation. 03/21/2025: Patient seen and examined in telemetry. Patient's sodium increased to 153 this morning, free water flushes were decreased to 50 cc/hr yesterday. Free water flushes increased to 100 cc/h this morning by primary team, agree with that management. Patient's free water deficit is around 8.4 L for goal correction of sodium by 10. If patient's hypernatremia continues to be refractory, can consider increasing free water flushes to 150-200 cc/h in the morning. Patient's renal function today BUN 77, creatinine 2.6, EGFR 27. Continue to monitor sodium. 03/23/2025: Patient seen and examined in telemetry. Patient's sodium 149, is on free water flushes 100 cc/h. Continue free water flushes for hypernatremia management, can uptitrate free water flushes 250 cc/h if sodium does not improve. Renal function has improved creatinine 2.4, GFR 29, BUN 63. Will continue to monitor renal function. Exam Vital Signs Temp Pulse Resp BP Pulse Ox O2 Del Method O2 Flow Rate 97.3 F 98 18 121/92 H 98 Blow-by 10 03/23/25 08:00 03/23/25 09:23 03/23/25 08:06 03/23/25 09:23 03/23/25 08:06 03/22/25 16:00 03/22/25 16:00 FiO2 40 03/23/25 08:06 Narrative Exam General: AAOx3, in mild distress, severely morbidly obese HEENT: dry mucous membranes, conjunctiva clear, EOMI, PERRLA, trachestomy Cardiovascular:Ejection systolic murmur, radial pulses +2 bilat, irregularly irregular, ap Pulmonary: FiO2 40, Rate 10, PEEP 8, TV 420, mechanical breath sounds GI: No tenderness to light or deep palpitation, no guarding, rigidity, rebound tenderness or distension Extremities: Pitting edema in lower extremities bilaterally, dorsalis pedis pulses +2 bilaterally Neuro: AAOx3, no focal motor or sensory deficits in the UE or LE bilat Objective Labs 03/25/25 05:10 03/25/25 13:01 Labs: Laboratory Results - last 24 hr 03/23/25 05:35 WBC 12.5 H RBC 4.24 L Hgb 12.0 L Hct 39.6 L MCV 93 MCH 28.3 MCHC 30.3 L RDW Std Deviation 50.2 H Plt Count 216 D Neut % (Auto) 76 Lymph % (Auto) [address] [place] % (Auto) 11 Eos % (Auto) 4 Baso % (Auto) 0 Neut # (Auto) 9.5 H Lymph # (Auto) 1.0 [place] # (Auto) 1.4 H Eos # (Auto) 0.5 Baso # (Auto) 0.1 Immature Gran # (Auto) 0.11 H Absolute Nucleated RBC 0.00 Immature Gran % 1 H Nucleated RBC % 0 Sodium 149 H Potassium 3.6 Chloride 106 Carbon Dioxide 36.7 H Anion Gap 6 L BUN 63 H Creatinine 2.4 H Estim Creat Clear Calc 51.6 L eGFR 29 L BUN/Creatinine Ratio 26 H Glucose 260 H Calculated Osmolality 323 H Calcium 8.6 Corrected Calcium 9.2 Total Bilirubin 0.9 AST 28 ALT 15 Alkaline Phosphatase 137 H D Total Protein 6.1 Albumin 3.3 L Globulin 2.8 Albumin/Globulin Ratio 1.2 ABG Interpretation ABG results: 02/27/25 02/28/25 03/01/25 06:55 04:57 04:39 ABG pH 7.27 L 7.37 D 7.41 ABG pCO2 57 H 48 44 ABG pO2 101 78 L D 69 L ABG HCO3 26 28 H 28 H ABG O2 Saturation 98 95 93 ABG Base Excess -2 2 3 VBG pH VBG pCO2 VBG pO2 VBG Base Excess 03/01/25 03/01/25 03/02/25 13:15 14:52 04:25 ABG pH Cancelled 7.41 7.45 ABG pCO2 Cancelled 45 42 ABG pO2 Cancelled 53 L* 66 L ABG HCO3 Cancelled 28 H 29 H ABG O2 Saturation Cancelled 85 L 92 ABG Base Excess Cancelled 3 5 H VBG pH VBG pCO2 VBG pO2 VBG Base Excess 03/03/25 03/05/25 03/05/25 04:40 16:30 16:55 ABG pH 7.45 Cancelled 7.34 L D ABG pCO2 43 Cancelled 72 H* D ABG pO2 72 L Cancelled 83 ABG HCO3 30 H Cancelled 38 H ABG O2 Saturation 94 Cancelled 95 ABG Base Excess 5 H Cancelled 9 H VBG pH VBG pCO2 VBG pO2 VBG Base Excess 03/05/25 03/06/25 03/06/25 23:36 01:48 05:22 ABG pH 7.37 7.34 L 7.52 H D ABG pCO2 67 H 74 H* 47 D ABG pO2 150 H D 88 D 160 H D ABG HCO3 38 H 40 H 38 H ABG O2 Saturation 99 H 96 100 H ABG Base Excess 10 H 11 H 13 H VBG pH VBG pCO2 VBG pO2 VBG Base Excess 03/06/25 03/07/25 03/07/25 17:10 05:00 14:03 ABG pH 7.46 H ABG pCO2 53 H ABG pO2 65 L D ABG HCO3 38 H ABG O2 Saturation 93 ABG Base Excess 12 H VBG pH 7.50 7.52 VBG pCO2 50 47 VBG pO2 70 H 61 H VBG Base Excess 13 H 14 H 03/09/25 03/09/25 03/09/25 08:17 10:25 17:29 ABG pH 7.25 L D 7.29 L 7.29 L ABG pCO2 93 H* D 85 H* 88 H* ABG pO2 81 L 57 L* D 85 D ABG HCO3 41 H 40 H 43 H ABG O2 Saturation 95 89 L 97 ABG Base Excess 10 H 10 H 12 H VBG pH VBG pCO2 VBG pO2 VBG Base Excess 03/09/25 03/10/25 03/10/25 23:24 07:17 11:25 ABG pH 7.32 L 7.28 L 7.31 L ABG pCO2 78 H* D 90 H* D 81 H* ABG pO2 69 L 47 L* D 63 L ABG HCO3 40 H 43 H 41 H ABG O2 Saturation 94 80 L 93 ABG Base Excess 11 H 12 H 11 H VBG pH VBG pCO2 VBG pO2 VBG Base Excess 03/10/25 03/11/25 03/12/25 16:56 04:19 04:42 ABG pH 7.40 7.48 H 7.43 ABG pCO2 66 H D 54 H D 59 H ABG pO2 68 L 67 L 77 L ABG HCO3 41 H 40 H 39 H ABG O2 Saturation 94 94 96 ABG Base Excess 13 H 15 H 12 H VBG pH VBG pCO2 VBG pO2 VBG Base Excess 03/13/25 03/14/25 03/15/25 04:32 04:25 04:37 ABG pH 7.47 H 7.46 H 7.41 ABG pCO2 53 H 50 H 56 H ABG pO2 60 L 70 L 69 L ABG HCO3 38 H 36 H 35 H ABG O2 Saturation 93 95 95 ABG Base Excess 13 H 10 H 9 H VBG pH VBG pCO2 VBG pO2 VBG Base Excess 03/16/25 03/16/25 03/17/25 04:54 09:53 04:35 ABG pH 7.45 7.48 H 7.47 H ABG pCO2 51 H 49 H 53 H ABG pO2 68 L 34 L* D 87 D ABG HCO3 35 H 37 H 38 H ABG O2 Saturation 95 67 L 97 ABG Base Excess 10 H 12 H 13 H VBG pH VBG pCO2 VBG pO2 VBG Base Excess 03/18/25 03/19/25 04:26 05:00 ABG pH 7.44 7.45 ABG pCO2 57 H 55 H ABG pO2 107 D 73 L D ABG HCO3 38 H 38 H ABG O2 Saturation 99 H 96 ABG Base Excess 12 H 12 H VBG pH VBG pCO2 VBG pO2 VBG Base Excess Quality Measures Quality Measures sepsis Current suspected stage: ruled out Possible source: pulmonary Blood cultures ordered: completed in ED Antibiotic ordered: No Advance care planning discussed with:: patient Assessment & Plan Assessment Current Active Medications: Generic Name Dose Route Start Last Admin Trade Name Freq PRN Reason Stop Dose Admin Acetaminophen 650 mg 03/10/25 19:17 Acetaminophen 325 Mg Tablet PO 03/29/25 09:23 Q4HR PRN fever > 100.4 Al Hydrox/Mg Hydrox/Simethicone 30 ml 02/27/25 09:24 Mg Hyd/Al Hyd/Virgilio (Maalox Reg) Susp 30 Ml Udc PO 03/29/25 09:23 Q4HR PRN Heartburn or Upset Stomach Amiodarone HCl 200 mg 03/01/25 09:00 03/23/25 09:23 Amiodarone Hcl 200 Mg Tablet PO 03/31/25 08:59 200 mg QDAY KOURTNEY Administration Amlodipine Besylate 10 mg 03/20/25 23:35 03/23/25 09:23 Amlodipine Besylate 5 Mg Tablet PO 04/19/25 23:34 10 mg DAILY KOURTNEY Administration Bumetanide 2 mg 03/17/25 21:00 03/18/25 21:28 Bumetanide Inj 0.25 Mg/Ml Vial 4 Ml IVP 04/16/25 20:59 2 mg BID KOURTNEY Administration Dextrose 25 ml 03/03/25 08:20 Dextrose 50%-Water Inj 50 Ml Syringe IV 04/02/25 08:19 Q15MIN PRN BG 50-70 responsive npo pt Dextrose 50 ml 03/03/25 08:20 Dextrose 50%-Water Inj 50 Ml Syringe IV 04/02/25 08:19 Q15MIN PRN BG <50 OR BG <70 & pt unresponsive Glucagon 1 mg 03/03/25 08:20 Glucagon Inj 1 Mg Vial IM Q15MIN PRN BG <70, and no IV access Insulin Human Lispro 0 unit 03/06/25 06:00 03/23/25 05:29 Insulin Lispro (Admelog) 1 Unit/0.01 Ml Unit SC 04/05/25 05:59 2 unit Q6H KOURTNEY Administration Protocol Lansoprazole 30 mg 03/23/25 09:30 03/23/25 09:36 Lansoprazole 30 Mg Tab.[email or web address].Dr [email or web address] 04/21/25 08:59 30 mg QDAY KOURTNEY Administration Magnesium Hydroxide 30 ml 02/27/25 09:24 Milk Of Magnesia Susp 30 Ml Udc PO 03/29/25 09:23 QDAY PRN CONSTIPATION Ondansetron HCl 4 mg 03/05/25 20:46 03/09/25 03:49 Ondansetron Inj 2 Mg/Ml Inj 2 Ml IV 04/04/25 20:45 4 mg Q6HR PRN Administration NAUSEA OR VOMITING Protocol Rivaroxaban 20 mg 03/04/25 17:30 03/22/25 17:31 Rivaroxaban 10 Mg Tablet PO 04/03/25 17:29 20 mg WSUPPER KOURTNEY Administration Plan 64-year-old male with past medical history of DM2, hypertension, and A-fib was admitted to the ICU on 02/27/2025 for acute hypoxic respiratory failure and altered mental status requiring intubation. Nephrology consulted for acute renal failure with worsening kidney function. #KENIA #Metabolic alkalosis #Hypernatremia, Hyper-osmolar Patient has no history of chronic kidney disease. Patient developed KENIA with worsening renal function during hospitalization. Initially suspected of cardiorenal syndrome, was treated with IV Bumex. Despite diuretic therapy patient kidney function continued to worsen. Suspect currently in ATN. Bumex was held, patient started on free water flushes. Patient continued to have worsening kidney function. Patient started on albumin today. Patient appears intravascularly depleted and intravascularly fluid overloaded. Ultrasound taken, unable to visualize kidneys. Urinalysis done showing trace blood, trace protein, 3+ uric acid crystals, 2+ bacteria. Urine total protein 99, urine creatinine 104. Nephrotic proteinuria ruled out, suspect KENIA related to right heart failure in the setting of elevated cardiac wedge pressure. Datto- Mary catheter shows patient is not fluid overloaded. Recommendations: -Continue free water flushes 100 cc/h, consider increasing to 150 cc/h as needed -Avoid nephrotoxic agent -Renally dose medication -Monitor daily labs -Continue free water flushes with goal of slow correction of free water deficit -Continue holding diuresis #Acute encephalopathy #Right diastolic CHF #Hx of A-fib #Acute on chronic hypoxic and hypercapnic respiratory failure #Obesity hypoventilation syndrome and obstructive sleep apnea #Community-acquired pneumonia, Enterobacter [place] #Morbid obesity #DM2 #Community-acquired pneumonia, Enterobacter cloacoe Management as per primary team Thank you for allowing us to participate in the care of this patient. Management discussed with attending Dr. Minor. Elizabeth Lamas PGY?1 Attending Provider Attestation/Addendum Pt is seen and examined. Labs and investigations are reviewed. Agree witth assessment and plan by resident. agree with findings. Clarence Minor MD
[2025-03-23 10:51] LABS: Magnesium 2.2 mg/dL (1.6-2.6); Phosphorous 3.4 mg/dL (2.4-5.1)
--- NOTE | 2025-03-23 10:59 | ESPR_ITS ---
Documentation for date of: 03/23/25 Subjective Subjective Interval history: No acute overnight events. Seen on telemetry with mom and dad at bedside. Tolerating trach relatively well. Denies fever, chills, headaches, chest pain, sob, cough, GI or urinary symptoms. Afebrile, BP 121/92, HR 80, satting well on blow-by 40%. WBC 12.5, Hgb 12.0 at baseline, PLT 216. Continued on 100 cc free water flushes, sodium 150 > 149. BUMEX on hold, renal function slowly improved, CR 2.4, BUN 63. Had 3+ bilateral lower extremity edema on exam. Okay with holding DIURETICS for now, appears nephrology team had discussion about possible hemodialysis with patient, patient may need HD eventually. Exam Vital Signs Temp Pulse Resp BP Pulse Ox O2 Del Method O2 Flow Rate 97.3 F 98 18 121/92 H 98 Blow-by 10 03/23/25 08:00 03/23/25 09:23 03/23/25 08:06 03/23/25 09:23 03/23/25 08:06 03/22/25 16:00 03/22/25 16:00 FiO2 40 03/23/25 08:06 Narrative Exam Gen: Well-developed and well-nourished morbidly obese male. HEENT: NCAT, PERRLA, EOMI, MMM, anicteric conjunctivae, tracheostomy in place. CVS: Decreased heart sounds, normal S1 and S2. RRR. No M/R/G. Resp: Decreased breath sounds B/L. No rhonchi, rales, crackles or wheezing. Abd: soft, morbidly obese, non-tender, non-distended. BS+ in all 4 quadrants. Pitting edema over bilateral flanks and sides. MSK: Good ROM in BUE & BLE. 3+ pitting edema BLE. Neuro: Limited exam due to medical condition. Objective Labs 03/25/25 05:10 03/25/25 13:01 Labs: Laboratory Results - last 24 hr 03/23/25 05:35 WBC 12.5 H RBC 4.24 L Hgb 12.0 L Hct 39.6 L MCV 93 MCH 28.3 MCHC 30.3 L RDW Std Deviation 50.2 H Plt Count 216 D Neut % (Auto) 76 Lymph % (Auto) 8 L [place] % (Auto) 11 Eos % (Auto) 4 Baso % (Auto) 0 Neut # (Auto) 9.5 H Lymph # (Auto) 1.0 [place] # (Auto) 1.4 H Eos # (Auto) 0.5 Baso # (Auto) 0.1 Immature Gran # (Auto) 0.11 H Absolute Nucleated RBC 0.00 Immature Gran % 1 H Nucleated RBC % 0 Sodium 149 H Potassium 3.6 Chloride 106 Carbon Dioxide 36.7 H Anion Gap 6 L BUN 63 H Creatinine 2.4 H Estim Creat Clear Calc 51.6 L eGFR 29 L BUN/Creatinine Ratio 26 H Glucose 260 H Calculated Osmolality 323 H Calcium 8.6 Corrected Calcium 9.2 Phosphorus 3.4 Magnesium 2.2 Total Bilirubin 0.9 AST 28 ALT 15 Alkaline Phosphatase 137 H D Total Protein 6.1 Albumin 3.3 L Globulin 2.8 Albumin/Globulin Ratio 1.2 ABG Interpretation ABG results: 02/27/25 02/28/25 03/01/25 06:55 04:57 04:39 ABG pH 7.27 L 7.37 D 7.41 ABG pCO2 57 H 48 44 ABG pO2 101 78 L D 69 L ABG HCO3 26 28 H 28 H ABG O2 Saturation 98 95 93 ABG Base Excess -2 2 3 VBG pH VBG pCO2 VBG pO2 VBG Base Excess 03/01/25 03/01/25 03/02/25 13:15 14:52 04:25 ABG pH Cancelled 7.41 7.45 ABG pCO2 Cancelled 45 42 ABG pO2 Cancelled 53 L* 66 L ABG HCO3 Cancelled 28 H 29 H ABG O2 Saturation Cancelled 85 L 92 ABG Base Excess Cancelled 3 5 H VBG pH VBG pCO2 VBG pO2 VBG Base Excess 03/03/25 03/05/25 03/05/25 04:40 16:30 16:55 ABG pH 7.45 Cancelled 7.34 L D ABG pCO2 43 Cancelled 72 H* D ABG pO2 72 L Cancelled 83 ABG HCO3 30 H Cancelled 38 H ABG O2 Saturation 94 Cancelled 95 ABG Base Excess 5 H Cancelled 9 H VBG pH VBG pCO2 VBG pO2 VBG Base Excess 03/05/25 03/06/25 03/06/25 23:36 01:48 05:22 ABG pH 7.37 7.34 L 7.52 H D ABG pCO2 67 H 74 H* 47 D ABG pO2 150 H D 88 D 160 H D ABG HCO3 38 H 40 H 38 H ABG O2 Saturation 99 H 96 100 H ABG Base Excess 10 H 11 H 13 H VBG pH VBG pCO2 VBG pO2 VBG Base Excess 03/06/25 03/07/25 03/07/25 17:10 05:00 14:03 ABG pH 7.46 H ABG pCO2 53 H ABG pO2 65 L D ABG HCO3 38 H ABG O2 Saturation 93 ABG Base Excess 12 H VBG pH 7.50 7.52 VBG pCO2 50 47 VBG pO2 70 H 61 H VBG Base Excess 13 H 14 H 03/09/25 03/09/25 03/09/25 08:17 10:25 17:29 ABG pH 7.25 L D 7.29 L 7.29 L ABG pCO2 93 H* D 85 H* 88 H* ABG pO2 81 L 57 L* D 85 D ABG HCO3 41 H 40 H 43 H ABG O2 Saturation 95 89 L 97 ABG Base Excess 10 H 10 H 12 H VBG pH VBG pCO2 VBG pO2 VBG Base Excess 03/09/25 03/10/25 03/10/25 23:24 07:17 11:25 ABG pH 7.32 L 7.28 L 7.31 L ABG pCO2 78 H* D 90 H* D 81 H* ABG pO2 69 L 47 L* D 63 L ABG HCO3 40 H 43 H 41 H ABG O2 Saturation 94 80 L 93 ABG Base Excess 11 H 12 H 11 H VBG pH VBG pCO2 VBG pO2 VBG Base Excess 03/10/25 03/11/25 03/12/25 16:56 04:19 04:42 ABG pH 7.40 7.48 H 7.43 ABG pCO2 66 H D 54 H D 59 H ABG pO2 68 L 67 L 77 L ABG HCO3 41 H 40 H 39 H ABG O2 Saturation 94 94 96 ABG Base Excess 13 H 15 H 12 H VBG pH VBG pCO2 VBG pO2 VBG Base Excess 03/13/25 03/14/25 03/15/25 04:32 04:25 04:37 ABG pH 7.47 H 7.46 H 7.41 ABG pCO2 53 H 50 H 56 H ABG pO2 60 L 70 L 69 L ABG HCO3 38 H 36 H 35 H ABG O2 Saturation 93 95 95 ABG Base Excess 13 H 10 H 9 H VBG pH VBG pCO2 VBG pO2 VBG Base Excess 03/16/25 03/16/25 03/17/25 04:54 09:53 04:35 ABG pH 7.45 7.48 H 7.47 H ABG pCO2 51 H 49 H 53 H ABG pO2 68 L 34 L* D 87 D ABG HCO3 35 H 37 H 38 H ABG O2 Saturation 95 67 L 97 ABG Base Excess 10 H 12 H 13 H VBG pH VBG pCO2 VBG pO2 VBG Base Excess 03/18/25 03/19/25 04:26 05:00 ABG pH 7.44 7.45 ABG pCO2 57 H 55 H ABG pO2 107 D 73 L D ABG HCO3 38 H 38 H ABG O2 Saturation 99 H 96 ABG Base Excess 12 H 12 H VBG pH VBG pCO2 VBG pO2 VBG Base Excess Quality Measures Quality Measures sepsis Current suspected stage: sepsis Possible source: pulmonary Blood cultures ordered: completed in ED Antibiotic ordered: Yes Advance care planning discussed with:: patient Assessment & Plan Assessment Current Active Medications: Generic Name Dose Route Start Last Admin Trade Name Freq PRN Reason Stop Dose Admin Acetaminophen 650 mg 03/10/25 19:17 Acetaminophen 325 Mg Tablet PO 03/29/25 09:23 Q4HR PRN fever > 100.4 Al Hydrox/Mg Hydrox/Simethicone 30 ml 02/27/25 09:24 Mg Hyd/Al Hyd/Virgilio (Maalox Reg) Susp 30 Ml Udc PO 03/29/25 09:23 Q4HR PRN Heartburn or Upset Stomach Amiodarone HCl 200 mg 03/01/25 09:00 03/23/25 09:23 Amiodarone Hcl 200 Mg Tablet PO 03/31/25 08:59 200 mg QDAY KOURTNEY Administration Amlodipine Besylate 10 mg 03/20/25 23:35 03/23/25 09:23 Amlodipine Besylate 5 Mg Tablet PO 04/19/25 23:34 10 mg DAILY KOURTNEY Administration Bumetanide 2 mg 03/17/25 21:00 03/18/25 21:28 Bumetanide Inj 0.25 Mg/Ml Vial 4 Ml IVP 04/16/25 20:59 2 mg BID KOURTNEY Administration Dextrose 25 ml 03/03/25 08:20 Dextrose 50%-Water Inj 50 Ml Syringe IV 04/02/25 08:19 Q15MIN PRN BG 50-70 responsive npo pt Dextrose 50 ml 03/03/25 08:20 Dextrose 50%-Water Inj 50 Ml Syringe IV 04/02/25 08:19 Q15MIN PRN BG <50 OR BG <70 & pt unresponsive Glucagon 1 mg 03/03/25 08:20 Glucagon Inj 1 Mg Vial IM Q15MIN PRN BG <70, and no IV access Insulin Human Lispro 0 unit 03/06/25 06:00 03/23/25 05:29 Insulin Lispro (Admelog) 1 Unit/0.01 Ml Unit SC 04/05/25 05:59 2 unit Q6H KOURTNEY Administration Protocol Lansoprazole 30 mg 03/23/25 09:30 03/23/25 09:36 Lansoprazole 30 Mg Tab.Rap.Dr CHAPIN 04/21/25 08:59 30 mg QDAY KOURTNEY Administration Magnesium Hydroxide 30 ml 02/27/25 09:24 Milk Of Magnesia Susp 30 Ml Udc PO 03/29/25 09:23 QDAY PRN CONSTIPATION Ondansetron HCl 4 mg 03/05/25 20:46 03/09/25 03:49 Ondansetron Inj 2 Mg/Ml Inj 2 Ml IV 04/04/25 20:45 4 mg Q6HR PRN Administration NAUSEA OR VOMITING Protocol Rivaroxaban 20 mg 03/04/25 17:30 03/22/25 17:31 Rivaroxaban 10 Mg Tablet PO 04/03/25 17:29 20 mg WSUPPER KOURTNEY Administration Plan 64-year-old male with significant past medical history of hypertension, diabetes mellitus, A-fib was admitted to the ICU on 02/27/2025 after coming in with altered mental status and shortness of breath, intubated for acute hypoxic respiratory failure and had suspected obesity hypoventilation syndrome/obstructive sleep apnea/pneumonia and acute kidney injury. He was extubated on 03/03 and downgraded then re-intubated on 03/06 due to confusion and tachypneia. He was then extubated and downgraded to the floor on 03/07. On 03/10, patient again had decreased mentation on the BiPAP so was reintubated and upgraded. Cardiology has been consulted for suspected heart failure. #Right congestive heart failure with preserved EF. #Severe BASIA/OHS. #Hypernatremia. Echo on this admission showed poor quality images secondary to the patient's body habitus so was a technically limited study. Suspect chronic right heart failure in the setting of chronic obesity hypoventilation syndrome and obstructive sleep apnea. Currently appears to be more pulmonary component to respiratory failure than cardiac. Requiring ventilation support. -Echo 02/27/25: IVC appears to be dilated and also estimated RVSP also appears to be at least moderately elevated at 55 mmHg. 03/14/25: Will hold dirutics for now , he was given IV fluids yesterday. 03/15/25 : [place] catheter was placed by ICU team which showed PA pressure of more than 30s and wedge pressure was also high . started him on bumex drip . will continue the albumin . he is getting his peg tube today 03/16/25: ICU team tried another [place] catheter today which showed RA pressure of 25, PA pressure of 38, PCWP of 23. Plan is to continue Bumex for him. Cr stable at 2.5 03/17/2025: Net fluid balance -3350 cc. ICU team held Bumex due to significant electrolyte abnormalities, potassium 2.7. Once repleted Bumex drip will be resumed. Continue current management and monitor patient. 03/18/2025: net fluid balance -1650 , he received 1 dose of diamox yesterday. will continue to diures, he is off ventillor in blowby with PRN ventillator when he gets tired. 03/19/2025: no acute overnight event.Balance of -950 . ICU team put a swan catheter which showed he is adequately diressed for now, so bumex on hold for now. pending pegtube placement, its been difficult to do the procedure consedering his Rouxy history. Plan: 03/20/2025: Will hold dirutics for now, he was given IV LR and FWF via NG for hypernatremia. 03/21/2025: no acute overnight event. free water flushes increase today for hypernatremia . Xarelto resumed . bumex on hold ,Dr Doty recommending jejunostomy placement. #Atrial fibrillation, rate controlled. Patient notes positive history of afib. He had previously been on metoprolol succinate 100 mg BID. Currently appears rate-controlled in the 100s. CHADS-VASc score 4 Plan: - Metoprolol on hold in setting of right heart failure . -Resume Xarelto. -Continue amiodarone 200 mg qday. -Keep potassium >4.0 and mag >2.0. Rest of conditions to continue current management per primary team: #Acute hypoxic respiratory failure s/p tracheostomy. #Morbid obesity. #Community acquired pneumonia. #Elevated LFTs, resolved. #Hyperbilirubinemia, resolved. #History of type 2 diabetes. #Lactic acidosis, resolved. #KENIA on CKD. 03/22/2025: Patient has tracheostomy inplace and is unable to communicate much Telemetry reviewed and rest of the vital signs including the heart rate appears to be stable. Labs showed that the patient still continues to have hyponatremia at 150 and also has elevated creatinine at 2.6 and a BUN of 66. Patient is on renal water flushes for the hyponatremia and creatinine continues to improve and baseline creatinine appears to be around 2.0 Recommend to continue with free water flushes for now. Patient is morbidly obese with multiple comorbidities as mentioned below and overall prognosis appears to be poor Primary team to discuss with the family regarding goals of care. 03/23/2025 Continued on free water flushes, sodium 150 > 149. Renal function showing minor improvement with BUN 63, CR 2.4, EGFR 29. Poor urine output. 2/3+ LE edema noted on exam again. Vitals relatively normal, BP 121/92, HR 98 although spikes of HR 120s noted on tele, continued on blow-by and satting well. ? Continue with free-water flushes, monitor renal function closely ? Continue AMIODARONE 200 mg daily ? Continue AMLODIPINE 10 mg daily ? Continue XARELTO 20 mg ? Okay holding BUMEX 2 mg IV BID as per nephro team, may need HD eventually if renally function not improving, kadi givens persisting edema. Management of rest of the medical conditions as per primary team and other consultants. Thank you for the consult and allowing me to participate in the care of the patient. Cardiology will continue to follow. Thank you for the opportunity to participate in the patient's care. Case was discussed with attending, Dr. Barahona. Radha Ordoñez DO PGYI Attending Provider Attestation/Addendum I have personally seen and examined the patient separately on the above date of service and discussed the plan of care with the resident. I reviewed the resident Dr. Radha Ordoñez consultation progress note and agree with the resident findings and plan in the note above and have also edited the documentation to reflect my findings and plan. Kobe Barahona M.D. Interventional Cardiology
--- NOTE | 2025-03-23 15:05 | ESPR_ITS ---
Documentation for date of: 03/23/25 Subjective Subjective Interval history: Patient evaluated Enteral feeding via the NGT Exam Vital Signs Temp Pulse Resp BP Pulse Ox O2 Del Method O2 Flow Rate 97.3 F 110 H 25 H 121/92 H 97 Blow-by 10 03/23/25 08:00 03/23/25 14:29 03/23/25 14:29 03/23/25 09:23 03/23/25 14:29 03/22/25 16:00 03/23/25 14:29 FiO2 40 03/23/25 14:29 Objective Labs 03/23/25 05:35 03/23/25 05:35 Labs: Laboratory Results - last 24 hr 03/23/25 05:35 WBC 12.5 H RBC 4.24 L Hgb 12.0 L Hct 39.6 L MCV 93 MCH 28.3 MCHC 30.3 L RDW Std Deviation 50.2 H Plt Count 216 D Neut % (Auto) 76 Lymph % (Auto) 8 L [place] % (Auto) 11 Eos % (Auto) 4 Baso % (Auto) 0 Neut # (Auto) 9.5 H Lymph # (Auto) 1.0 [place] # (Auto) 1.4 H Eos # (Auto) 0.5 Baso # (Auto) 0.1 Immature Gran # (Auto) 0.11 H Absolute Nucleated RBC 0.00 Immature Gran % 1 H Nucleated RBC % 0 Sodium 149 H Potassium 3.6 Chloride 106 Carbon Dioxide 36.7 H Anion Gap 6 L BUN 63 H Creatinine 2.4 H Estim Creat Clear Calc 51.6 L eGFR 29 L BUN/Creatinine Ratio 26 H Glucose 260 H Calculated Osmolality 323 H Calcium 8.6 Corrected Calcium 9.2 Phosphorus 3.4 Magnesium 2.2 Total Bilirubin 0.9 AST 28 ALT 15 Alkaline Phosphatase 137 H D Total Protein 6.1 Albumin 3.3 L Globulin 2.8 Albumin/Globulin Ratio 1.2 Impressions Impression: Dysphagia Enteral feeding via NGT ABG Interpretation ABG results: 02/27/25 02/28/25 03/01/25 06:55 04:57 04:39 ABG pH 7.27 L 7.37 D 7.41 ABG pCO2 57 H 48 44 ABG pO2 101 78 L D 69 L ABG HCO3 26 28 H 28 H ABG O2 Saturation 98 95 93 ABG Base Excess -2 2 3 VBG pH VBG pCO2 VBG pO2 VBG Base Excess 03/01/25 03/01/25 03/02/25 13:15 14:52 04:25 ABG pH Cancelled 7.41 7.45 ABG pCO2 Cancelled 45 42 ABG pO2 Cancelled 53 L* 66 L ABG HCO3 Cancelled 28 H 29 H ABG O2 Saturation Cancelled 85 L 92 ABG Base Excess Cancelled 3 5 H VBG pH VBG pCO2 VBG pO2 VBG Base Excess 03/03/25 03/05/25 03/05/25 04:40 16:30 16:55 ABG pH 7.45 Cancelled 7.34 L D ABG pCO2 43 Cancelled 72 H* D ABG pO2 72 L Cancelled 83 ABG HCO3 30 H Cancelled 38 H ABG O2 Saturation 94 Cancelled 95 ABG Base Excess 5 H Cancelled 9 H VBG pH VBG pCO2 VBG pO2 VBG Base Excess 03/05/25 03/06/25 03/06/25 23:36 01:48 05:22 ABG pH 7.37 7.34 L 7.52 H D ABG pCO2 67 H 74 H* 47 D ABG pO2 150 H D 88 D 160 H D ABG HCO3 38 H 40 H 38 H ABG O2 Saturation 99 H 96 100 H ABG Base Excess 10 H 11 H 13 H VBG pH VBG pCO2 VBG pO2 VBG Base Excess 03/06/25 03/07/25 03/07/25 17:10 05:00 14:03 ABG pH 7.46 H ABG pCO2 53 H ABG pO2 65 L D ABG HCO3 38 H ABG O2 Saturation 93 ABG Base Excess 12 H VBG pH 7.50 7.52 VBG pCO2 50 47 VBG pO2 70 H 61 H VBG Base Excess 13 H 14 H 03/09/25 03/09/25 03/09/25 08:17 10:25 17:29 ABG pH 7.25 L D 7.29 L 7.29 L ABG pCO2 93 H* D 85 H* 88 H* ABG pO2 81 L 57 L* D 85 D ABG HCO3 41 H 40 H 43 H ABG O2 Saturation 95 89 L 97 ABG Base Excess 10 H 10 H 12 H VBG pH VBG pCO2 VBG pO2 VBG Base Excess 03/09/25 03/10/25 03/10/25 23:24 07:17 11:25 ABG pH 7.32 L 7.28 L 7.31 L ABG pCO2 78 H* D 90 H* D 81 H* ABG pO2 69 L 47 L* D 63 L ABG HCO3 40 H 43 H 41 H ABG O2 Saturation 94 80 L 93 ABG Base Excess 11 H 12 H 11 H VBG pH VBG pCO2 VBG pO2 VBG Base Excess 03/10/25 03/11/25 03/12/25 16:56 04:19 04:42 ABG pH 7.40 7.48 H 7.43 ABG pCO2 66 H D 54 H D 59 H ABG pO2 68 L 67 L 77 L ABG HCO3 41 H 40 H 39 H ABG O2 Saturation 94 94 96 ABG Base Excess 13 H 15 H 12 H VBG pH VBG pCO2 VBG pO2 VBG Base Excess 03/13/25 03/14/25 03/15/25 04:32 04:25 04:37 ABG pH 7.47 H 7.46 H 7.41 ABG pCO2 53 H 50 H 56 H ABG pO2 60 L 70 L 69 L ABG HCO3 38 H 36 H 35 H ABG O2 Saturation 93 95 95 ABG Base Excess 13 H 10 H 9 H VBG pH VBG pCO2 VBG pO2 VBG Base Excess 03/16/25 03/16/25 03/17/25 04:54 09:53 04:35 ABG pH 7.45 7.48 H 7.47 H ABG pCO2 51 H 49 H 53 H ABG pO2 68 L 34 L* D 87 D ABG HCO3 35 H 37 H 38 H ABG O2 Saturation 95 67 L 97 ABG Base Excess 10 H 12 H 13 H VBG pH VBG pCO2 VBG pO2 VBG Base Excess 03/18/25 03/19/25 04:26 05:00 ABG pH 7.44 7.45 ABG pCO2 57 H 55 H ABG pO2 107 D 73 L D ABG HCO3 38 H 38 H ABG O2 Saturation 99 H 96 ABG Base Excess 12 H 12 H VBG pH VBG pCO2 VBG pO2 VBG Base Excess Assessment & Plan A&P Narrative 64-year-old male with significant past medical history of hypertension, diabetes mellitus, A-fib was admitted to the ICU on 02/27/2025 after coming in with altered mental status and shortness of breath, intubated for acute hypoxic respiratory failure and had suspected obesity hypoventilation syndrome/obstructive sleep apnea/pneumonia and acute kidney injury. He was extubated on 03/03 and downgraded then re-intubated on 03/06 due to confusion and tachypneia. He was then extubated and downgraded to the floor on 03/07. On 03/10, patient again had decreased mentation on the BiPAP so was reintubated and upgraded. Cardiology has been consulted for suspected heart failure. #Right congestive heart failure with preserved EF. #Severe BASIA/OHS. #Hypernatremia. Echo on this admission showed poor quality images secondary to the patient's body habitus so was a technically limited study. Suspect chronic right heart failure in the setting of chronic obesity hypoventilation syndrome and obstructive sleep apnea. Currently appears to be more pulmonary component to respiratory failure than cardiac. Requiring ventilation support. -Echo 02/27/25: IVC appears to be dilated and also estimated RVSP also appears to be at least moderately elevated at 55 mmHg. 03/14/25: Will hold dirutics for now , he was given IV fluids yesterday. 03/15/25 : [place] catheter was placed by ICU team which showed PA pressure of more than 30s and wedge pressure was also high . started him on bumex drip . will continue the albumin . he is getting his peg tube today 03/16/25: ICU team tried another [place] catheter today which showed RA pressure of 25, PA pressure of 38, PCWP of 23. Plan is to continue Bumex for him. Cr stable at 2.5 03/17/2025: Net fluid balance -3350 cc. ICU team held Bumex due to significant electrolyte abnormalities, potassium 2.7. Once repleted Bumex drip will be resumed. Continue current management and monitor patient. 03/18/2025: net fluid balance -1650 , he received 1 dose of diamox yesterday. will continue to diures, he is off ventillor in blowby with PRN ventillator when he gets tired. 03/19/2025: no acute overnight event.Balance of -950 . ICU team put a swan catheter which showed he is adequately diressed for now, so bumex on hold for now. pending pegtube placement, its been difficult to do the procedure consedering his Rouxy history. Plan: 03/20/2025: Will hold dirutics for now, he was given IV LR and FWF via NG for hypernatremia. 03/21/2025: no acute overnight event. free water flushes increase today for hypernatremia . Xarelto resumed . bumex on hold ,Dr Doty recommending jejunostomy placement. #Atrial fibrillation, rate controlled. Patient notes positive history of afib. He had previously been on metoprolol succinate 100 mg BID. Currently appears rate-controlled in the 100s. CHADS-VASc score 4 Plan: - Metoprolol on hold in setting of right heart failure . -Resume Xarelto. -Continue amiodarone 200 mg qday. -Keep potassium >4.0 and mag >2.0. Rest of conditions to continue current management per primary team: #Acute hypoxic respiratory failure s/p tracheostomy. #Morbid obesity. #Community acquired pneumonia. #Elevated LFTs, resolved. #Hyperbilirubinemia, resolved. #History of type 2 diabetes. #Lactic acidosis, resolved. #KEN[place] on CKD. 03/22/2025: Patient has tracheostomy inplace and is unable to communicate much Telemetry reviewed and rest of the vital signs including the heart rate appears to be stable. Labs showed that the patient still continues to have hyponatremia at 150 and also has elevated creatinine at 2.6 and a BUN of 66. Patient is on renal water flushes for the hyponatremia and creatinine continues to improve and baseline creatinine appears to be around 2.0 Recommend to continue with free water flushes for now. Patient is morbidly obese with multiple comorbidities as mentioned below and overall prognosis appears to be poor Primary team to discuss with the family regarding goals of care. Management of rest of the medical conditions as per primary team and other consultants. Thank you for the consult and allowing me to participate in the care of the patient. Cardiology will continue to follow. Kobe Barahona M.D. Interventional Cardiology Time Spent With Patient Time: Total time spent is greater than 50% in coordination of care (as documented) at patient's floor/unit and/or counseling patient:
--- NOTE | 2025-03-23 16:26 | PD.RESPRO ---
Documentation for date of: 03/23/25 Subjective Subjective Interval history: Patient was seen and examined at bedside, patient still tachycardic, however no new symptoms at this time, we noticed today that there was no record of his import and output as the patient penis was retracted and was unable to place a condom catheter and there was previous injury from pure wick. Will continue to monitor intake at this time, will try to repeat sodium check however it was unsuccessful due to body habitus. And also patient refused multiple attempts. Will continue same water flushes at this time, blood pending more improvement of his mentation so we can start the patient on speech evaluation for possible resumption of feeding if patient unable to tolerate feeding we will transfer the patient to higher level care facility for PEG tube placement. Exam Vital Signs Temp Pulse Resp BP Pulse Ox O2 Del Method O2 Flow Rate 97.3 F 110 H 25 H 121/92 H 97 Blow-by 10 03/23/25 08:00 03/23/25 14:29 03/23/25 14:29 03/23/25 09:23 03/23/25 14:29 03/22/25 16:00 03/23/25 14:29 FiO2 40 03/23/25 14:29 Narrative Exam GEN: AOx3, able to speak full sentences, morbidly obese, and tracheostomy. Responds appropriately HEENT: NC/AC, PERRLA, oral mucosa moist, neck supple CVS: RRR, decreased S1-S2 present, no murmurs appreciated RESP: Decreased air entry bilaterally most likely secondary to body habitus GI: soft,non distended, non tender, NBS MSK: able to move all 4 limbs, no lower extremity edema SKIN: warm and dry [employer]IC: CN II-XII and Sensation grossly intact. Objective Labs 03/23/25 05:35 03/23/25 05:35 Labs: Laboratory Results - last 24 hr 03/23/25 05:35 WBC 12.5 H RBC 4.24 L Hgb 12.0 L Hct 39.6 L MCV 93 MCH 28.3 MCHC 30.3 L RDW Std Deviation 50.2 H Plt Count 216 D Neut % (Auto) 76 Lymph % (Auto) 8 L [place] % (Auto) 11 Eos % (Auto) 4 Baso % (Auto) 0 Neut # (Auto) 9.5 H Lymph # (Auto) 1.0 [place] # (Auto) 1.4 H Eos # (Auto) 0.5 Baso # (Auto) 0.1 Immature Gran # (Auto) 0.11 H Absolute Nucleated RBC 0.00 Immature Gran % 1 H Nucleated RBC % 0 Sodium 149 H Potassium 3.6 Chloride 106 Carbon Dioxide 36.7 H Anion Gap 6 L BUN 63 H Creatinine 2.4 H Estim Creat Clear Calc 51.6 L eGFR 29 L BUN/Creatinine Ratio 26 H Glucose 260 H Calculated Osmolality 323 H Calcium 8.6 Corrected Calcium 9.2 Phosphorus 3.4 Magnesium 2.2 Total Bilirubin 0.9 AST 28 ALT 15 Alkaline Phosphatase 137 H D Total Protein 6.1 Albumin 3.3 L Globulin 2.8 Albumin/Globulin Ratio 1.2 ABG Interpretation ABG results: 02/27/25 02/28/25 03/01/25 06:55 04:57 04:39 ABG pH 7.27 L 7.37 D 7.41 ABG pCO2 57 H 48 44 ABG pO2 101 78 L D 69 L ABG HCO3 26 28 H 28 H ABG O2 Saturation 98 95 93 ABG Base Excess -2 2 3 VBG pH VBG pCO2 VBG pO2 VBG Base Excess 03/01/25 03/01/25 03/02/25 13:15 14:52 04:25 ABG pH Cancelled 7.41 7.45 ABG pCO2 Cancelled 45 42 ABG pO2 Cancelled 53 L* 66 L ABG HCO3 Cancelled 28 H 29 H ABG O2 Saturation Cancelled 85 L 92 ABG Base Excess Cancelled 3 5 H VBG pH VBG pCO2 VBG pO2 VBG Base Excess 03/03/25 03/05/25 03/05/25 04:40 16:30 16:55 ABG pH 7.45 Cancelled 7.34 L D ABG pCO2 43 Cancelled 72 H* D ABG pO2 72 L Cancelled 83 ABG HCO3 30 H Cancelled 38 H ABG O2 Saturation 94 Cancelled 95 ABG Base Excess 5 H Cancelled 9 H VBG pH VBG pCO2 VBG pO2 VBG Base Excess 03/05/25 03/06/25 03/06/25 23:36 01:48 05:22 ABG pH 7.37 7.34 L 7.52 H D ABG pCO2 67 H 74 H* 47 D ABG pO2 150 H D 88 D 160 H D ABG HCO3 38 H 40 H 38 H ABG O2 Saturation 99 H 96 100 H ABG Base Excess 10 H 11 H 13 H VBG pH VBG pCO2 VBG pO2 VBG Base Excess 03/06/25 03/07/25 03/07/25 17:10 05:00 14:03 ABG pH 7.46 H ABG pCO2 53 H ABG pO2 65 L D ABG HCO3 38 H ABG O2 Saturation 93 ABG Base Excess 12 H VBG pH 7.50 7.52 VBG pCO2 50 47 VBG pO2 70 H 61 H VBG Base Excess 13 H 14 H 03/09/25 03/09/25 03/09/25 08:17 10:25 17:29 ABG pH 7.25 L D 7.29 L 7.29 L ABG pCO2 93 H* D 85 H* 88 H* ABG pO2 81 L 57 L* D 85 D ABG HCO3 41 H 40 H 43 H ABG O2 Saturation 95 89 L 97 ABG Base Excess 10 H 10 H 12 H VBG pH VBG pCO2 VBG pO2 VBG Base Excess 03/09/25 03/10/25 03/10/25 23:24 07:17 11:25 ABG pH 7.32 L 7.28 L 7.31 L ABG pCO2 78 H* D 90 H* D 81 H* ABG pO2 69 L 47 L* D 63 L ABG HCO3 40 H 43 H 41 H ABG O2 Saturation 94 80 L 93 ABG Base Excess 11 H 12 H 11 H VBG pH VBG pCO2 VBG pO2 VBG Base Excess 03/10/25 03/11/25 03/12/25 16:56 04:19 04:42 ABG pH 7.40 7.48 H 7.43 ABG pCO2 66 H D 54 H D 59 H ABG pO2 68 L 67 L 77 L ABG HCO3 41 H 40 H 39 H ABG O2 Saturation 94 94 96 ABG Base Excess 13 H 15 H 12 H VBG pH VBG pCO2 VBG pO2 VBG Base Excess 03/13/25 03/14/25 03/15/25 04:32 04:25 04:37 ABG pH 7.47 H 7.46 H 7.41 ABG pCO2 53 H 50 H 56 H ABG pO2 60 L 70 L 69 L ABG HCO3 38 H 36 H 35 H ABG O2 Saturation 93 95 95 ABG Base Excess 13 H 10 H 9 H VBG pH VBG pCO2 VBG pO2 VBG Base Excess 03/16/25 03/16/25 03/17/25 04:54 09:53 04:35 ABG pH 7.45 7.48 H 7.47 H ABG pCO2 51 H 49 H 53 H ABG pO2 68 L 34 L* D 87 D ABG HCO3 35 H 37 H 38 H ABG O2 Saturation 95 67 L 97 ABG Base Excess 10 H 12 H 13 H VBG pH VBG pCO2 VBG pO2 VBG Base Excess 03/18/25 03/19/25 04:26 05:00 ABG pH 7.44 7.45 ABG pCO2 57 H 55 H ABG pO2 107 D 73 L D ABG HCO3 38 H 38 H ABG O2 Saturation 99 H 96 ABG Base Excess 12 H 12 H VBG pH VBG pCO2 VBG pO2 VBG Base Excess Quality Measures Quality Measures sepsis Current suspected stage: sepsis Possible source: pulmonary Blood cultures ordered: completed in ED Antibiotic ordered: Yes Advance care planning discussed with:: patient Assessment & Plan Assessment Current Active Medications: Generic Name Dose Route Start Last Admin Trade Name Freq PRN Reason Stop Dose Admin Acetaminophen 650 mg 03/10/25 19:17 Acetaminophen 325 Mg Tablet PO 03/29/25 09:23 Q4HR PRN fever > 100.4 Al Hydrox/Mg Hydrox/Simethicone 30 ml 02/27/25 09:24 Mg Hyd/Al Hyd/Virgilio (Maalox Reg) Susp 30 Ml Udc PO 03/29/25 09:23 Q4HR PRN Heartburn or Upset Stomach Amiodarone HCl 200 mg 03/01/25 09:00 03/23/25 09:23 Amiodarone Hcl 200 Mg Tablet PO 03/31/25 08:59 200 mg QDAY KOURTNEY Administration Amlodipine Besylate 10 mg 03/20/25 23:35 03/23/25 09:23 Amlodipine Besylate 5 Mg Tablet PO 04/19/25 23:34 10 mg DAILY KOURTNEY Administration Bumetanide 2 mg 03/17/25 21:00 03/18/25 21:28 Bumetanide Inj 0.25 Mg/Ml Vial 4 Ml IVP 04/16/25 20:59 2 mg BID KOURTNEY Administration Dextrose 25 ml 03/03/25 08:20 Dextrose 50%-Water Inj 50 Ml Syringe IV 04/02/25 08:19 Q15MIN PRN BG 50-70 responsive npo pt Dextrose 50 ml 03/03/25 08:20 Dextrose 50%-Water Inj 50 Ml Syringe IV 04/02/25 08:19 Q15MIN PRN BG <50 OR BG <70 & pt unresponsive Glucagon 1 mg 03/03/25 08:20 Glucagon Inj 1 Mg Vial IM Q15MIN PRN BG <70, and no IV access Insulin Human Lispro 0 unit 03/06/25 06:00 03/23/25 12:31 Insulin Lispro (Admelog) 1 Unit/0.01 Ml Unit SC 04/05/25 05:59 2 unit Q6H KOURTNEY Administration Protocol Lansoprazole 30 mg 03/23/25 09:30 03/23/25 09:36 Lansoprazole 30 Mg Tab.Rap.Dr CHAPIN 04/21/25 08:59 30 mg QDAY KOURTNEY Administration Magnesium Hydroxide 30 ml 02/27/25 09:24 Milk Of Magnesia Susp 30 Ml Udc PO 03/29/25 09:23 QDAY PRN CONSTIPATION Ondansetron HCl 4 mg 03/05/25 20:46 03/09/25 03:49 Ondansetron Inj 2 Mg/Ml Inj 2 Ml IV 04/04/25 20:45 4 mg Q6HR PRN Administration NAUSEA OR VOMITING Protocol Rivaroxaban 20 mg 03/23/25 17:30 Rivaroxaban 10 Mg Tablet GT 04/03/25 17:29 WSUPPER KOURTNEY Plan Summary: 64-year-old male with past medical history of DM2, hypertension, A-fib, and Jehova's witness was admitted to the ICU on 02/27/2025 for shock and acute hypoxic respiratory failure. 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 NG placement lost, unable to replace. DR. Doty consulted and will re-insert NG tube. General surgery, IR unable to do J-tube given history of daniel-en-y gastric bypass. Patient would benefit from TPN/PPN. Resumed tube feeds via NG tube Glucerna IR unable to put in PICC line today for TPN Continues to be on blow-by. Did not tolerate PMS valve, as per speech therapist patient will need time to adjust further tracheostomy before the trial of PNS. Will reevaluate if the patient tolerated the PMS we will do another session of speech evaluation, the patient unable to perform the speech evaluation we will transfer the patient to higher level of care for placement of PEG tube versus duodenojejunostomy.. Plan: -Glucerna 1.[address] recommendations via NG tube, water flushes 100 cc an hour #Right diastolic CHF, improved Echo could not visualize all chambers with limited ability to determine patient's ejection fraction. Given body habitus, history of obstructive sleep apnea and obesity hypoventilation syndrome, right heart failure suspected. Lower pedal edema likely combination of heart failure and third spacing. [place] 03/15 showed elevated RAP 25 PAP 38 PCWP 23. [place] Mary 03/16/2025 PCWP 9 (=17-8) [place] 03/19/2025: RAP 8, PAP 27, PCWP 7 Dry weight: 197.9 Dry BNP 135 High cardiac output Unable to assess urine output as the penile area is retracted, there is also a wound from the pure wick during his stay, the patient is immobile. Will continue to monitor his intake, at this time his on water flushes 100 mL/h in addition to his 65 mL/h tube feed. Will decrease water flushes as seen with we reached to goal of sodium level. Plan: ?Sodium check at 2 PM today, and at 9 PM tonight. Adjust water flushes accordingly. ? Continuing to hold Bumex - Daily weights - Strict I&O #Hx of A-fib [id number] score of 3 points indicating 3.2% risk of stroke per year HAS-BLED: 0 Plan: - Continue PO amiodarone 200 mg qday with small sips of water ? Potassium and magnesium above 4 and 2 respectively - Resumed Xarelto ? Telemetry #Acute on chronic hypoxic and hypercapnic respiratory failure #Obesity hypoventilation syndrome and obstructive sleep apnea #Community-acquired pneumonia, Enterobacter [place] #Tracheostomy Patient was intubated on 02/27/2025, extubated 03/03/2025. Reintubated on 03/06/2025 and extubated 03/07/2025. Reintubated 03/10/2025 for hypercapnic encephalopathy Tracheostomy tube placed 03/15 [place] 03/19/2025 PEEP 8, RR 10, FiO2 40, TV 420 Blow-by during the day, ventilation at night will continue to feed patient, with hopes of mentation improving and possible removal of tracheostomy Patient will need PMV valve if tracheostomy stays Plan: ?Ventilatory support at bedtime, blow-by during the day. - Continue vent, wean as tolerated #KENIA improving #Hypokalemia #Hypernatremia Pre-renal from cardiorenal and edema in the setting of third spacing, low albumin. Bumex drip discontinued. Right heart cath shows CVP 8, shows appropriate diuresis, however patient will need some fluid at this time Unable to assess urine output as the penile area is retracted, there is also a wound from the pure wick during his stay, the patient is immobile. Will continue to monitor his intake, at this time his on water flushes 100 mL/h in addition to his 65 mL/h tube feed. Will decrease water flushes as seen with we reached to goal of sodium level. Today potassium level of 3.6. Plan: ?KCl 40 mEq to keep potassium level above 4 - Nephrology following, Dr. Gannon, appreciate recommendations ? Water flushes 100 cc/hour #Hypernatremia, Hyper-osmolar Free water deficit 4.2 L for goal Na 147 Plan: ? Free water flushes 100 cc every hour ? Renal panel at 12 AM #Morbid obesity #DM2 A1C 7.6 on 03/05/2025 Patient has a BMI of 79.5 Plan: - ISS - Hypoglycemia protocol ordered #Normocytic Anemia likely secondary to anemia of chronic disease given normal MCV. No acute intervention, continue to monitor #Leukocytosis, resolved #Enterobacter cloacoe pneumonia, resolved. Finished Rocephin (03/06/2025) - Cefepime 03/18/2025, completed #Acute encephalopathy, resolved #Health Maintenance Disposition: Telemetry DVT prophylaxis: Heparin GI prophylaxis: Protonix Diet: NG tube feeds with Glucerna CODE STATUS: Full - Patient's plan and care discussed with my attending, Dr. Coco Bay MD Internal Medicine PGY-2 Attending Provider Attestation/Addendum I attest that I was physically present for the evaluation, physical examination, lab and imaging review of the patient with the residents. I discussed the case with the residents and agree with the findings and plans of care as documented above. Cortez Alicia MD
--- NOTE | 2025-03-23 17:11 | PC.NURSE ---
Phleb tried 3x to get blood from pt, got blood but lab not able to use sample. Need to redraw lab but pt refused. Dr. Bay notified.
[2025-03-23] MEDS: RIVAROXABAN 10 MG TABLET 20 MG GT (17:50)
[2025-03-23] MEDS: ACETAMINOPHEN 325 MG TABLET 650 MG PO (17:50)
[2025-03-23 20:49] LABS: Sodium 146 mMol/L (136-145)
[2025-03-24] VITALS (13 sets, daily range): BP systolic 119–144; BP diastolic 80–98; PULSE 68–114; RESP 14–24; TEMP 36.1–36.6; O2SAT 90–100
[2025-03-24] MEDS: INSULIN LISPRO (AdmeLOG) 1 UNIT/0.01 ML UNIT SC ×4 (05:11→23:14)
[2025-03-24 06:45] LABS: Magnesium 2.1 mg/dL (1.6-2.6); Phosphorous 3.3 mg/dL (2.4-5.1)
[2025-03-24 08:12] LABS: Basophils % (Auto) 0 % (0-2.5); Eosinophils # (Auto) 0.5 Thou/mm3 (0.0-0.5); Eosinophils % (Auto) 4 % (0-10); Hematocrit 35.2 % (41.0-53.0); Hemoglobin 11.2 g/dL (13.5-16.0); Immature Granulocytes % (Auto) 1 % (0-0); Lymphocytes # (Auto) 0.9 Thou/mm3 (1.0-4.8); Lymphocytes % (Auto) 8 % (10-50); Mean Corpuscular HGB Conc 31.8 g/dl (31.0-37.0); Mean Corpuscular Hemoglobin 28.4 pg (25.0-35.0); Mean Corpuscular Volume 89 fL (80-100); Monocytes # (Auto) 1.1 Thou/mm3 (0.0-0.8); Monocytes % (Auto) 10 % (0-12); Neutrophils # (Auto) 8.6 Thou/mm3 (1.8-7.7); Neutrophils % (Auto) 77 % (37-80); Nucleated Red Blood Cell % 0 /100 WBC (0); Platelet Count 251 Thou/mm3 (140-440); RDW Standard Deviation 47.6 fL (35.1-43.9); Red Blood Count 3.94 Miln/mm3 (4.50-5.90); White Blood Count 11.2 Thou/mm3 (3.8-10.6)
[2025-03-24 08:20] LABS: Alanine Aminotransferase 14 U/L (10-49); Albumin, Serum 3.1 gm/dL (3.4-4.8); Albumin/Globulin Ratio 1.1 (1.2-2.2); Alkaline Phosphatase 133 U/L (46-116); Anion Gap 8 (7-16); Aspartate Amino Transferase 24 U/L (0-34); BUN/Creatinine Ratio 29 Ratio (12-20); Bilirubin,Total 0.7 mg/dL (0.3-1.2); Blood Urea Nitrogen 64 mg/dL (9-23); Calcium 8.5 mg/dL (8.3-10.6); Calcium (Corrected) 9.2 mg/dL (8.5-10.1); Carbon Dioxide 34.1 mMol/L (20.0-31.0); Chloride 106 mMol/L (98-107); Creatinine (Component) 2.2 mg/dL (0.6-1.3); Estimated Creatinine Clearance 56.3 mL/min (>60); Globulin 2.7 gm/dL (2.3-3.5); Glucose 266 mg/dL (74-106); Osmolality,Calculated 321 (275-295); Potassium 3.8 mMol/L (3.4-5.1); Sodium 148 mMol/L (136-145); Total Protein 5.8 gm/dL (5.7-8.2); eGFR 32 See Note
[2025-03-24] MEDS: INSULIN GLARGINE (Lantus) 5 UNIT/0.05 ML (PER 5 UNITS) 10 UNIT SC (09:50)
[2025-03-24] MEDS: AMIODARONE HCL 200 MG TABLET NG (09:51)
[2025-03-24] MEDS: LANSOPRAZOLE 30 MG TAB.RAP.DR NG (09:52)
[2025-03-24] MEDS: amLODIPine BESYLATE 5 MG TABLET 10 MG NG (09:52)
[2025-03-24] MEDS: ALBUMIN HUMAN 25% IVPB 25 GM/100 ML BTL IV ×2 (11:42→20:08)
--- NOTE | 2025-03-24 11:47 | ESPR_ITS ---
Documentation for date of: 03/24/25 Subjective Subjective Interval history: Mr. Ortega is a 64-year-old male with past medical history of DM2, hypertension, and A-fib Morbid obesity by BMIwas admitted to the ICU on 02/27/2025 after coming to the ED with complaints of altered mental status and shortness of breath. Patient was intubated in the ED therefore most of the history was taken from chart review and from the parents who are at bedside. EMS found the patient on the floor and he was saturating in the 70s even on high flow nasal cannula. Given his hypoxia patient was intubated in the ED. Patient spiked a fever while in the ED and he became hypotensive unresponsive to IV fluids therefore he was placed on vasopressors. During course of hospitalization patient had decreasing kidney function, patient notably edematous and has vascular congestion on x-ray, therefore was treated with Bumex. Despite diuresis therapy, patient kidney function continued to worsen, diuresis positive patient given free water flushes. Patient has had notably low albumin, ICU team recently started patient on albumin but not at the same time as diuretics. Nephrology was consulted due to worsening kidney function. Tracheostomy placed yesterday. Labs today show WBC 12.5, hemoglobin 12.1, platelets 346. Sodium 149, potassium 3.6, chloride 104, bicarb 33.5. BUN 76, creatinine 2.7, EGFR 25. Hemoglobin A1c 7.6%. 03/20/2025: Patient seen and examined in ICU, patient physically remains in ICU, downgraded to telemetry. Patient has not been able to get feeding for the last 3 days, had NG tube placed was started on tube feeds earlier today. Patient sodium of 153 this morning, free water deficit 5 L was started on free water flushes at 100 cc/h by primary team. Patient was given 500 cc IV bolus, diuresis continues to be on hold. Patient continues to be on mechanical ventilation. 03/21/2025: Patient seen and examined in telemetry. Patient's sodium increased to 153 this morning, free water flushes were decreased to 50 cc/hr yesterday. Free water flushes increased to 100 cc/h this morning by primary team, agree with that management. Patient's free water deficit is around 8.4 L for goal correction of sodium by 10. If patient's hypernatremia continues to be refractory, can consider increasing free water flushes to 150-200 cc/h in the morning. Patient's renal function today BUN 77, creatinine 2.6, EGFR 27. Continue to monitor sodium. 03/23/2025: Patient seen and examined in telemetry. Patient's sodium 149, is on free water flushes 100 cc/h. Continue free water flushes for hypernatremia management, can uptitrate free water flushes 250 cc/h if sodium does not improve. Renal function has improved creatinine 2.4, GFR 29, BUN 63. Will continue to monitor renal function. 03/24/2025: Patient seen and examined at bedside, resting comfortably. Patient is edematous, urine output not being recorded due to difficulty with catheter. Instead patient getting daily weights. Currently on free water flushes 100 cc/h. Sodium 148, potassium 3.8, bicarb 34.1, BUN 64, creatinine 2.2, EGFR 32. Diuretics were held due to sodium, will give Diamox x 1. Exam Vital Signs Temp Pulse Resp BP Pulse Ox O2 Del Method O2 Flow Rate 97.2 F 96 17 134/87 H 97 Blow-by 12 03/24/25 08:00 03/24/25 09:52 03/24/25 08:00 03/24/25 09:52 03/24/25 08:00 03/24/25 08:00 03/24/25 08:00 FiO2 40 03/24/25 08:00 Narrative Exam PE: Gen: Well-developed and well-nourished. Morbidly Obese. HEENT: NCAT, PERRLA, EOMI, MMM, anicteric conjunctivae. CVS: normal S1 and S2. RRR. No M/R/G. Resp: CTA B/L. No rhonchi, rales, crackles or wheezing. Poor lung sounds due to body habitus. Coarse due to ventilator. Abd: soft, non-tender, non-distended. Very edematous pannus. MSK: Good ROM in BUE & BLE. No rash. Diffuse 2+ pitting edema in all extremities. Neuro: CN II-XII grossly intact. Tracheostomy in place. Objective Labs 03/24/25 05:18 03/24/25 15:54 Labs: Laboratory Results - last 24 hr 03/23/25 03/23/25 03/24/25 16:36 20:31 05:18 WBC 11.2 H RBC 3.94 L Hgb 11.2 L Hct 35.2 L MCV 89 MCH 28.4 MCHC 31.8 RDW Std Deviation 47.6 H Plt Count 251 D Neut % (Auto) 77 Lymph % (Auto) 8 L Gillespie % (Auto) 10 Eos % (Auto) 4 Baso % (Auto) 0 Neut # (Auto) 8.6 H Lymph # (Auto) 0.9 L Gillespie # (Auto) 1.1 H Eos # (Auto) 0.5 Baso # (Auto) 0.0 Immature Gran # (Auto) 0.10 H Absolute Nucleated RBC 0.00 Immature Gran % 1 H Nucleated RBC % 0 Sodium Cancelled 146 H 148 H Potassium 3.8 Chloride 106 Carbon Dioxide 34.1 H Anion Gap 8 BUN 64 H Creatinine 2.2 H Estim Creat Clear Calc 56.3 L eGFR 32 L BUN/Creatinine Ratio 29 H Glucose 266 H Calculated Osmolality 321 H Calcium 8.5 Corrected Calcium 9.2 Phosphorus 3.3 Magnesium 2.1 Total Bilirubin 0.7 AST 24 ALT 14 Alkaline Phosphatase 133 H Total Protein 5.8 Albumin 3.1 L Globulin 2.7 Albumin/Globulin Ratio 1.1 L ABG Interpretation ABG results: 02/27/25 02/28/25 03/01/25 06:55 04:57 04:39 ABG pH 7.27 L 7.37 D 7.41 ABG pCO2 57 H 48 44 ABG pO2 101 78 L D 69 L ABG HCO3 26 28 H 28 H ABG O2 Saturation 98 95 93 ABG Base Excess -2 2 3 VBG pH VBG pCO2 VBG pO2 VBG Base Excess 03/01/25 03/01/25 03/02/25 13:15 14:52 04:25 ABG pH Cancelled 7.41 7.45 ABG pCO2 Cancelled 45 42 ABG pO2 Cancelled 53 L* 66 L ABG HCO3 Cancelled 28 H 29 H ABG O2 Saturation Cancelled 85 L 92 ABG Base Excess Cancelled 3 5 H VBG pH VBG pCO2 VBG pO2 VBG Base Excess 03/03/25 03/05/25 03/05/25 04:40 16:30 16:55 ABG pH 7.45 Cancelled 7.34 L D ABG pCO2 43 Cancelled 72 H* D ABG pO2 72 L Cancelled 83 ABG HCO3 30 H Cancelled 38 H ABG O2 Saturation 94 Cancelled 95 ABG Base Excess 5 H Cancelled 9 H VBG pH VBG pCO2 VBG pO2 VBG Base Excess 03/05/25 03/06/25 03/06/25 23:36 01:48 05:22 ABG pH 7.37 7.34 L 7.52 H D ABG pCO2 67 H 74 H* 47 D ABG pO2 150 H D 88 D 160 H D ABG HCO3 38 H 40 H 38 H ABG O2 Saturation 99 H 96 100 H ABG Base Excess 10 H 11 H 13 H VBG pH VBG pCO2 VBG pO2 VBG Base Excess 03/06/25 03/07/25 03/07/25 17:10 05:00 14:03 ABG pH 7.46 H ABG pCO2 53 H ABG pO2 65 L D ABG HCO3 38 H ABG O2 Saturation 93 ABG Base Excess 12 H VBG pH 7.50 7.52 VBG pCO2 50 47 VBG pO2 70 H 61 H VBG Base Excess 13 H 14 H 03/09/25 03/09/25 03/09/25 08:17 10:25 17:29 ABG pH 7.25 L D 7.29 L 7.29 L ABG pCO2 93 H* D 85 H* 88 H* ABG pO2 81 L 57 L* D 85 D ABG HCO3 41 H 40 H 43 H ABG O2 Saturation 95 89 L 97 ABG Base Excess 10 H 10 H 12 H VBG pH VBG pCO2 VBG pO2 VBG Base Excess 03/09/25 03/10/25 03/10/25 23:24 07:17 11:25 ABG pH 7.32 L 7.28 L 7.31 L ABG pCO2 78 H* D 90 H* D 81 H* ABG pO2 69 L 47 L* D 63 L ABG HCO3 40 H 43 H 41 H ABG O2 Saturation 94 80 L 93 ABG Base Excess 11 H 12 H 11 H VBG pH VBG pCO2 VBG pO2 VBG Base Excess 03/10/25 03/11/25 03/12/25 16:56 04:19 04:42 ABG pH 7.40 7.48 H 7.43 ABG pCO2 66 H D 54 H D 59 H ABG pO2 68 L 67 L 77 L ABG HCO3 41 H 40 H 39 H ABG O2 Saturation 94 94 96 ABG Base Excess 13 H 15 H 12 H VBG pH VBG pCO2 VBG pO2 VBG Base Excess 03/13/25 03/14/25 03/15/25 04:32 04:25 04:37 ABG pH 7.47 H 7.46 H 7.41 ABG pCO2 53 H 50 H 56 H ABG pO2 60 L 70 L 69 L ABG HCO3 38 H 36 H 35 H ABG O2 Saturation 93 95 95 ABG Base Excess 13 H 10 H 9 H VBG pH VBG pCO2 VBG pO2 VBG Base Excess 03/16/25 03/16/25 03/17/25 04:54 09:53 04:35 ABG pH 7.45 7.48 H 7.47 H ABG pCO2 51 H 49 H 53 H ABG pO2 68 L 34 L* D 87 D ABG HCO3 35 H 37 H 38 H ABG O2 Saturation 95 67 L 97 ABG Base Excess 10 H 12 H 13 H VBG pH VBG pCO2 VBG pO2 VBG Base Excess 03/18/25 03/19/25 04:26 05:00 ABG pH 7.44 7.45 ABG pCO2 57 H 55 H ABG pO2 107 D 73 L D ABG HCO3 38 H 38 H ABG O2 Saturation 99 H 96 ABG Base Excess 12 H 12 H VBG pH VBG pCO2 VBG pO2 VBG Base Excess Quality Measures Quality Measures sepsis Current suspected stage: sepsis Possible source: pulmonary Blood cultures ordered: completed in ED Antibiotic ordered: Yes Advance care planning discussed with:: patient Assessment & Plan Assessment Current Active Medications: Generic Name Dose Route Start Last Admin Trade Name Freq PRN Reason Stop Dose Admin Acetaminophen 650 mg 03/23/25 17:36 03/23/25 17:50 Acetaminophen 325 Mg Tablet PO 03/29/25 09:23 650 mg Q4HR PRN Administration fever > 100.4 or Mild Pain 1-3 Al Hydrox/Mg Hydrox/Simethicone 30 ml 03/24/25 09:42 Mg Hyd/Al Hyd/Virgilio (Maalox Reg) Susp 30 Ml Udc NG 03/29/25 09:23 Q4HR PRN Heartburn or Upset Stomach Amiodarone HCl 200 mg 03/24/25 09:45 03/24/25 09:51 Amiodarone Hcl 200 Mg Tablet NG 03/31/25 08:59 200 mg QDAY KOURTNEY Administration Amlodipine Besylate 10 mg 03/24/25 09:45 03/24/25 09:52 Amlodipine Besylate 5 Mg Tablet NG 04/19/25 23:34 10 mg DAILY KOURTNEY Administration Bumetanide 2 mg 03/17/25 21:00 03/18/25 21:28 Bumetanide Inj 0.25 Mg/Ml Vial 4 Ml IVP 04/16/25 20:59 2 mg BID KOURTNEY Administration Dextrose 25 ml 03/03/25 08:20 Dextrose 50%-Water Inj 50 Ml Syringe IV 04/02/25 08:19 Q15MIN PRN BG 50-70 responsive npo pt Dextrose 50 ml 03/03/25 08:20 Dextrose 50%-Water Inj 50 Ml Syringe IV 04/02/25 08:19 Q15MIN PRN BG <50 OR BG <70 & pt unresponsive Glucagon 1 mg 03/03/25 08:20 Glucagon Inj 1 Mg Vial IM Q15MIN PRN BG <70, and no IV access Albumin Human 25 gm in 100 mls @ 100 mls/hr 03/24/25 11:15 03/24/25 11:42 Albuminar-25 Ivpb IV 03/27/25 11:14 100 mls/hr BID KOURTNEY Administration Insulin Glargine 10 unit 03/24/25 09:25 03/24/25 09:50 Insulin Glargine (Lantus) 5 Unit/0.05 Ml (Per 5 Units) SC 04/23/25 09:24 10 unit QDAY KOURTNEY Administration Insulin Human Lispro 0 unit 03/06/25 06:00 03/24/25 11:26 Insulin Lispro (Admelog) 1 Unit/0.01 Ml Unit SC 04/05/25 05:59 3 unit Q6H KOURTNEY Administration Protocol Lansoprazole 30 mg 03/23/25 09:30 03/24/25 09:52 Lansoprazole 30 Mg Tab.Rap.Dr CHAPIN 04/21/25 08:59 30 mg QDAY KOURTNEY Administration Magnesium Hydroxide 30 ml 03/24/25 09:43 Milk Of Magnesia Susp 30 Ml Udc NG 03/29/25 09:23 QDAY PRN CONSTIPATION Ondansetron HCl 4 mg 03/05/25 20:46 03/09/25 03:49 Ondansetron Inj 2 Mg/Ml Inj 2 Ml IV 04/04/25 20:45 4 mg Q6HR PRN Administration NAUSEA OR VOMITING Protocol Rivaroxaban 20 mg 03/23/25 17:30 03/23/25 17:50 Rivaroxaban 10 Mg Tablet GT 04/03/25 17:29 20 mg WSUPPER KOURTNEY Administration Plan 64-year-old male with past medical history of DM2, hypertension, and A-fib was admitted to the ICU on 02/27/2025 for acute hypoxic respiratory failure and altered mental status requiring intubation. Nephrology consulted for acute renal failure with worsening kidney function. #KENIA #Metabolic alkalosis #Hypernatremia, Hyper-osmolar Patient has no history of chronic kidney disease. Patient developed KENIA with worsening renal function during hospitalization. Initially suspected of cardiorenal syndrome, was treated with IV Bumex. Despite diuretic therapy patient kidney function continued to worsen. Suspect currently in ATN. Bumex was held, patient started on free water flushes. Patient continued to have worsening kidney function. Patient started on albumin today. Patient appears intravascularly depleted and intravascularly fluid overloaded. Ultrasound taken, unable to visualize kidneys. Urinalysis done showing trace blood, trace protein, 3+ uric acid crystals, 2+ bacteria. Urine total protein 99, urine creatinine 104. Nephrotic proteinuria ruled out, suspect KENIA related to right heart failure in the setting of elevated cardiac wedge pressure. [place]- Mary catheter shows patient is not fluid overloaded. Patient is continue to get free water flushes, unable to accurately track ins and outs due to difficulties with catheter. Currently being weighed daily -Continue free water flushes 100 cc/h, consider increasing to 150 cc/h as needed -Avoid nephrotoxic agent -Renally dose medication -Monitor daily labs -Diamox 500 mg IV x 1 -Continue holding diuresis #Acute encephalopathy #Right diastolic CHF #Hx of A-fib #Acute on chronic hypoxic and hypercapnic respiratory failure #Obesity hypoventilation syndrome and obstructive sleep apnea #Community-acquired pneumonia, Enterobacter [place] #Morbid obesity #DM2 #Community-acquired pneumonia, Enterobacter cloacoe Management as per primary team Thank you for allowing us to participate in the care of this patient. Management discussed with attending Dr. Gannon. Anil Rodriguez MD PGY?1 Attending Provider Attestation/Addendum Patient seen and examined with resident physician Dr. Campos. Note reviewed, agree with findings and recommendations. 03/24/2025 Morbidly obese gentleman presented with acute hypoxic/hypercarbic respiratory failure. On ventilator. Significant anasarca noted. Patient made good urine. Currently in KENIA. Hypernatremia-on free water flushes. cr stable one dose Diamox given s/p trach. NGT feeds, free water flushes ordered Plan of care discussed with primary team.
--- NOTE | 2025-03-24 12:34 | PD.RESPRO ---
Documentation for date of: 03/24/25 Subjective Subjective Interval history: Patient examined at bedside today. No acute overnight events. Telemetry reviewed, patient is rate controlled. Patient continuing to be on free water flushes, sodium of 148 today. Will obtain renal panel for later today to adjust for water flushes. Will continue with strict body weights as we do not have Fuller catheter or condom catheter at this time. This patient has had some kind of penile injury and thus why we are doing body weights. Will also add glargine for the patient as patient's fasting and bedside glucose continues to be elevated in the 200s. Possibly will put PMV tomorrow pending speech eval. Exam Vital Signs Temp Pulse Resp BP Pulse Ox O2 Del Method O2 Flow Rate 97.2 F 96 17 134/87 H 97 Blow-by 12 03/24/25 08:00 03/24/25 09:52 03/24/25 08:00 03/24/25 09:52 03/24/25 08:00 03/24/25 08:00 03/24/25 08:00 FiO2 40 03/24/25 08:00 Narrative Exam General: AAOx3, in mild distress, severely morbidly obese HEENT: Dry mucous membranes, conjunctiva clear, EOMI, PERRLA, trachestomy Cardiovascular:Ejection systolic murmur, radial pulses +2 bilat, irregularly irregular, Pulmonary: FiO2 40, Rate 10, PEEP 8, TV 420, on blow-by GI: No tenderness to light or deep palpitation, no guarding, rigidity, rebound tenderness or distension Extremities: +1 Pitting edema in lower extremities bilaterally, dorsalis pedis pulses +2 bilaterally Neuro: AAOx3, no focal motor or sensory deficits in the UE or LE bilat Objective Labs 03/24/25 05:18 03/24/25 05:18 Labs: Laboratory Results - last 24 hr 03/23/25 03/23/25 03/24/25 16:36 20:31 05:18 WBC 11.2 H RBC 3.94 L Hgb 11.2 L Hct 35.2 L MCV 89 MCH 28.4 MCHC 31.8 RDW Std Deviation 47.6 H Plt Count 251 D Neut % (Auto) 77 Lymph % (Auto) 8 L [place] % (Auto) 10 Eos % (Auto) 4 Baso % (Auto) 0 Neut # (Auto) 8.6 H Lymph # (Auto) 0.9 L [place] # (Auto) 1.1 H Eos # (Auto) 0.5 Baso # (Auto) 0.0 Immature Gran # (Auto) 0.10 H Absolute Nucleated RBC 0.00 Immature Gran % 1 H Nucleated RBC % 0 Sodium Cancelled 146 H 148 H Potassium 3.8 Chloride 106 Carbon Dioxide 34.1 H Anion Gap 8 BUN 64 H Creatinine 2.2 H Estim Creat Clear Calc 56.3 L eGFR 32 L BUN/Creatinine Ratio 29 H Glucose 266 H Calculated Osmolality 321 H Calcium 8.5 Corrected Calcium 9.2 Phosphorus 3.3 Magnesium 2.1 Total Bilirubin 0.7 AST 24 ALT 14 Alkaline Phosphatase 133 H Total Protein 5.8 Albumin 3.1 L Globulin 2.7 Albumin/Globulin Ratio 1.1 L ABG Interpretation ABG results: 02/27/25 02/28/25 03/01/25 06:55 04:57 04:39 ABG pH 7.27 L 7.37 D 7.41 ABG pCO2 57 H 48 44 ABG pO2 101 78 L D 69 L ABG HCO3 26 28 H 28 H ABG O2 Saturation 98 95 93 ABG Base Excess -2 2 3 VBG pH VBG pCO2 VBG pO2 VBG Base Excess 03/01/25 03/01/25 03/02/25 13:15 14:52 04:25 ABG pH Cancelled 7.41 7.45 ABG pCO2 Cancelled 45 42 ABG pO2 Cancelled 53 L* 66 L ABG HCO3 Cancelled 28 H 29 H ABG O2 Saturation Cancelled 85 L 92 ABG Base Excess Cancelled 3 5 H VBG pH VBG pCO2 VBG pO2 VBG Base Excess 03/03/25 03/05/25 03/05/25 04:40 16:30 16:55 ABG pH 7.45 Cancelled 7.34 L D ABG pCO2 43 Cancelled 72 H* D ABG pO2 72 L Cancelled 83 ABG HCO3 30 H Cancelled 38 H ABG O2 Saturation 94 Cancelled 95 ABG Base Excess 5 H Cancelled 9 H VBG pH VBG pCO2 VBG pO2 VBG Base Excess 03/05/25 03/06/25 03/06/25 23:36 01:48 05:22 ABG pH 7.37 7.34 L 7.52 H D ABG pCO2 67 H 74 H* 47 D ABG pO2 150 H D 88 D 160 H D ABG HCO3 38 H 40 H 38 H ABG O2 Saturation 99 H 96 100 H ABG Base Excess 10 H 11 H 13 H VBG pH VBG pCO2 VBG pO2 VBG Base Excess 03/06/25 03/07/25 03/07/25 17:10 05:00 14:03 ABG pH 7.46 H ABG pCO2 53 H ABG pO2 65 L D ABG HCO3 38 H ABG O2 Saturation 93 ABG Base Excess 12 H VBG pH 7.50 7.52 VBG pCO2 50 47 VBG pO2 70 H 61 H VBG Base Excess 13 H 14 H 03/09/25 03/09/25 03/09/25 08:17 10:25 17:29 ABG pH 7.25 L D 7.29 L 7.29 L ABG pCO2 93 H* D 85 H* 88 H* ABG pO2 81 L 57 L* D 85 D ABG HCO3 41 H 40 H 43 H ABG O2 Saturation 95 89 L 97 ABG Base Excess 10 H 10 H 12 H VBG pH VBG pCO2 VBG pO2 VBG Base Excess 03/09/25 03/10/25 03/10/25 23:24 07:17 11:25 ABG pH 7.32 L 7.28 L 7.31 L ABG pCO2 78 H* D 90 H* D 81 H* ABG pO2 69 L 47 L* D 63 L ABG HCO3 40 H 43 H 41 H ABG O2 Saturation 94 80 L 93 ABG Base Excess 11 H 12 H 11 H VBG pH VBG pCO2 VBG pO2 VBG Base Excess 03/10/25 03/11/25 03/12/25 16:56 04:19 04:42 ABG pH 7.40 7.48 H 7.43 ABG pCO2 66 H D 54 H D 59 H ABG pO2 68 L 67 L 77 L ABG HCO3 41 H 40 H 39 H ABG O2 Saturation 94 94 96 ABG Base Excess 13 H 15 H 12 H VBG pH VBG pCO2 VBG pO2 VBG Base Excess 03/13/25 03/14/25 03/15/25 04:32 04:25 04:37 ABG pH 7.47 H 7.46 H 7.41 ABG pCO2 53 H 50 H 56 H ABG pO2 60 L 70 L 69 L ABG HCO3 38 H 36 H 35 H ABG O2 Saturation 93 95 95 ABG Base Excess 13 H 10 H 9 H VBG pH VBG pCO2 VBG pO2 VBG Base Excess 03/16/25 03/16/25 03/17/25 04:54 09:53 04:35 ABG pH 7.45 7.48 H 7.47 H ABG pCO2 51 H 49 H 53 H ABG pO2 68 L 34 L* D 87 D ABG HCO3 35 H 37 H 38 H ABG O2 Saturation 95 67 L 97 ABG Base Excess 10 H 12 H 13 H VBG pH VBG pCO2 VBG pO2 VBG Base Excess 03/18/25 03/19/25 04:26 05:00 ABG pH 7.44 7.45 ABG pCO2 57 H 55 H ABG pO2 107 D 73 L D ABG HCO3 38 H 38 H ABG O2 Saturation 99 H 96 ABG Base Excess 12 H 12 H VBG pH VBG pCO2 VBG pO2 VBG Base Excess Quality Measures Quality Measures sepsis Current suspected stage: ruled out Possible source: pulmonary Blood cultures ordered: completed in ED Antibiotic ordered: No Advance care planning discussed with:: patient Assessment & Plan Assessment Current Active Medications: Generic Name Dose Route Start Last Admin Trade Name Freq PRN Reason Stop Dose Admin Acetaminophen 650 mg 03/23/25 17:36 03/23/25 17:50 Acetaminophen 325 Mg Tablet PO 03/29/25 09:23 650 mg Q4HR PRN Administration fever > 100.4 or Mild Pain 1-3 Al Hydrox/Mg Hydrox/Simethicone 30 ml 03/24/25 09:42 Mg Hyd/Al Hyd/Virgilio (Maalox Reg) Susp 30 Ml Udc NG 03/29/25 09:23 Q4HR PRN Heartburn or Upset Stomach Amiodarone HCl 200 mg 03/24/25 09:45 03/24/25 09:51 Amiodarone Hcl 200 Mg Tablet NG 03/31/25 08:59 200 mg QDAY KOURTNEY Administration Amlodipine Besylate 10 mg 03/24/25 09:45 03/24/25 09:52 Amlodipine Besylate 5 Mg Tablet NG 04/19/25 23:34 10 mg DAILY KOURTNEY Administration Bumetanide 2 mg 03/17/25 21:00 03/18/25 21:28 Bumetanide Inj 0.25 Mg/Ml Vial 4 Ml IVP 04/16/25 20:59 2 mg BID KOURTNEY Administration Dextrose 25 ml 03/03/25 08:20 Dextrose 50%-Water Inj 50 Ml Syringe IV 04/02/25 08:19 Q15MIN PRN BG 50-70 responsive npo pt Dextrose 50 ml 03/03/25 08:20 Dextrose 50%-Water Inj 50 Ml Syringe IV 04/02/25 08:19 Q15MIN PRN BG <50 OR BG <70 & pt unresponsive Glucagon 1 mg 03/03/25 08:20 Glucagon Inj 1 Mg Vial IM Q15MIN PRN BG <70, and no IV access Albumin Human 25 gm in 100 mls @ 100 mls/hr 03/24/25 11:15 03/24/25 11:42 Albuminar-25 Ivpb IV 03/27/25 11:14 100 mls/hr BID KOURTNEY Administration Insulin Glargine 10 unit 03/24/25 09:25 03/24/25 09:50 Insulin Glargine (Lantus) 5 Unit/0.05 Ml (Per 5 Units) SC 04/23/25 09:24 10 unit QDAY KOURTNEY Administration Insulin Human Lispro 0 unit 03/06/25 06:00 03/24/25 11:26 Insulin Lispro (Admelog) 1 Unit/0.01 Ml Unit SC 04/05/25 05:59 3 unit Q6H KOURTNEY Administration Protocol Lansoprazole 30 mg 03/23/25 09:30 03/24/25 09:52 Lansoprazole 30 Mg Tab.Rap.Dr CHAPIN 04/21/25 08:59 30 mg QDAY KOURTNEY Administration Magnesium Hydroxide 30 ml 03/24/25 09:43 Milk Of Magnesia Susp 30 Ml Udc NG 03/29/25 09:23 QDAY PRN CONSTIPATION Ondansetron HCl 4 mg 03/05/25 20:46 03/09/25 03:49 Ondansetron Inj 2 Mg/Ml Inj 2 Ml IV 04/04/25 20:45 4 mg Q6HR PRN Administration NAUSEA OR VOMITING Protocol Rivaroxaban 20 mg 03/23/25 17:30 03/23/25 17:50 Rivaroxaban 10 Mg Tablet GT 04/03/25 17:29 20 mg WSUPPER KOURTNEY Administration Plan Assessment 64-year-old male with past medical history of DM2, hypertension, A-fib, and Jehova's witness was admitted to the ICU on 02/27/2025 for shock and acute hypoxic respiratory failure. 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 NG placement lost, unable to replace. DR. Doty consulted and will re-insert NG tube. General surgery, IR unable to do J-tube given history of daniel-en-y gastric bypass. Patient would benefit from TPN/PPN. Resumed tube feeds via NG tube Glucerna IR unable to put in PICC line today for TPN Continues to be on blow-by. Did not tolerate PMS valve, as per speech therapist patient will need time to adjust further tracheostomy before the trial of PNS. Will reevaluate if the patient tolerated the PMS we will do another session of speech evaluation, the patient unable to perform the speech evaluation we will transfer the patient to higher level of care for placement of PEG tube versus duodenojejunostomy. Will increase water flushes today Plan: -Glucerna 1.[address] recommendations via NG tube, water flushes 150 cc an hour #Right diastolic CHF, improved Echo could not visualize all chambers with limited ability to determine patient's ejection fraction. Given body habitus, history of obstructive sleep apnea and obesity hypoventilation syndrome, right heart failure suspected. Lower pedal edema likely combination of heart failure and third spacing. [place] Mary 03/15 showed elevated RAP 25 PAP 38 PCWP 23. [place] Mary 03/16/2025 PCWP 9 (=17-8) [place] Mary 03/19/2025: RAP 8, PAP 27, PCWP 7 Dry weight: 197.9 Dry BNP 135 High cardiac output Continuing water flushes at this time at 100 cc an hour, will have to do body weights to assess for urine output as patient does not have Fuller or condom catheter at this time His weight today is 201 kg May consider diuresis tomorrow if sodium does not improve Plan: ? Cardiology consulted, appreciate recs ? Continuing to hold Bumex - Daily weights - Strict I&O #Hx of A-fib [id number] score of 3 points indicating 3.2% risk of stroke per year HAS-BLED: 0 Plan: - Continue PO amiodarone 200 mg qday with small sips of water ? Potassium and magnesium above 4 and 2 respectively - Resumed Xarelto ? Telemetry #Acute on chronic hypoxic and hypercapnic respiratory failure #Obesity hypoventilation syndrome and obstructive sleep apnea #Community-acquired pneumonia, Enterobacter [place] #Tracheostomy Patient was intubated on 02/27/2025, extubated 03/03/2025. Reintubated on 03/06/2025 and extubated 03/07/2025. Reintubated 03/10/2025 for hypercapnic encephalopathy Tracheostomy tube placed 03/15 [place] 03/19/2025 PEEP 8, RR 10, FiO2 40, TV 420 Blow-by during the day, ventilation at night will continue to feed patient, with hopes of mentation improving and possible removal of tracheostomy Patient will need PMV valve if tracheostomy stays Plan: ?Ventilatory support at bedtime, blow-by during the day. - Continue vent, wean as tolerated #KENIA improving #Hypokalemia #Hypernatremia Pre-renal from cardiorenal and edema in the setting of third spacing, low albumin. Bumex drip discontinued. Right heart cath shows CVP 8, shows appropriate diuresis, however patient will need some fluid at this time Unable to assess urine output as the penile area is retracted, there is also a wound from the pure wick during his stay, the patient is immobile. Will continue to monitor his intake, at this time his on water flushes 100 mL/h in addition to his 65 mL/h tube feed. Will decrease water flushes as seen with we reached to goal of sodium level. Creatinine 2.2 today, may consider diuresis tomorrow Plan: - Nephrology following, Dr. Gannon, appreciate recommendations ? Water flushes 150 cc/hour #Hypernatremia, Hyper-osmolar Free water deficit 4.3 146 Plan: ? Free water flushes 150 cc every hour ? Renal panel at 2 PM #Morbid obesity #DM2 A1C 7.6 on 03/05/2025 Patient has a BMI of 79.5 Plan: - ISS - Hypoglycemia protocol ordered ? Starting 10 units of glargine #Normocytic Anemia likely secondary to anemia of chronic disease given normal MCV. No acute intervention, continue to monitor #Leukocytosis, resolved #Enterobacter cloacoe pneumonia, resolved. Finished Rocephin (03/06/2025) - Cefepime 03/18/2025, completed #Acute encephalopathy, resolved #Health Maintenance Disposition: Telemetry DVT prophylaxis: Heparin GI prophylaxis: Protonix Diet: NG tube feeds with Glucerna CODE STATUS: Full Patient seen and care discussed with my attending physician, Dr. Ravin Shields, PGY-1 Attending Provider Attestation/Addendum I attest that I was physically present for the evaluation, physical examination, lab and imaging review of the patient with the residents. I discussed the case with the residents and agree with the findings and plans of care as documented above. Cortez Alicia MD
[2025-03-24] MEDS: ACETAzolaMIDE SOD 500 MG in SODIUM CHLORIDE 0.9% (Popper) 50 ML 100 MG IV (13:02)
--- NOTE | 2025-03-24 13:33 | PD.IMPROG ---
Documentation for date of: 03/24/25 Subjective Subjective Interval history: Patient evaluated Hemoglobin hematocrit 11.2 and 35.2 Exam Vital Signs Temp Pulse Resp BP Pulse Ox O2 Del Method O2 Flow Rate 97.1 F 77 15 143/85 H 98 Blow-by 12 03/24/25 12:00 03/24/25 12:00 03/24/25 12:00 03/24/25 12:00 03/24/25 12:00 03/24/25 12:00 03/24/25 12:00 FiO2 40 03/24/25 12:00 Objective Labs 03/24/25 05:18 03/24/25 05:18 Labs: Laboratory Results - last 24 hr 03/23/25 03/23/25 03/24/25 16:36 20:31 05:18 WBC 11.2 H RBC 3.94 L Hgb 11.2 L Hct 35.2 L MCV 89 MCH 28.4 MCHC 31.8 RDW Std Deviation 47.6 H Plt Count 251 D Neut % (Auto) 77 Lymph % (Auto) 8 L [place] % (Auto) 10 Eos % (Auto) 4 Baso % (Auto) 0 Neut # (Auto) 8.6 H Lymph # (Auto) 0.9 L [place] # (Auto) 1.1 H Eos # (Auto) 0.5 Baso # (Auto) 0.0 Immature Gran # (Auto) 0.10 H Absolute Nucleated RBC 0.00 Immature Gran % 1 H Nucleated RBC % 0 Sodium Cancelled 146 H 148 H Potassium 3.8 Chloride 106 Carbon Dioxide 34.1 H Anion Gap 8 BUN 64 H Creatinine 2.2 H Estim Creat Clear Calc 56.3 L eGFR 32 L BUN/Creatinine Ratio 29 H Glucose 266 H Calculated Osmolality 321 H Calcium 8.5 Corrected Calcium 9.2 Phosphorus 3.3 Magnesium 2.1 Total Bilirubin 0.7 AST 24 ALT 14 Alkaline Phosphatase 133 H Total Protein 5.8 Albumin 3.1 L Globulin 2.7 Albumin/Globulin Ratio 1.1 L Impressions Impression: Enteral feeding via the NGT Continue current management ABG Interpretation ABG results: 02/27/25 02/28/25 03/01/25 06:55 04:57 04:39 ABG pH 7.27 L 7.37 D 7.41 ABG pCO2 57 H 48 44 ABG pO2 101 78 L D 69 L ABG HCO3 26 28 H 28 H ABG O2 Saturation 98 95 93 ABG Base Excess -2 2 3 VBG pH VBG pCO2 VBG pO2 VBG Base Excess 03/01/25 03/01/25 03/02/25 13:15 14:52 04:25 ABG pH Cancelled 7.41 7.45 ABG pCO2 Cancelled 45 42 ABG pO2 Cancelled 53 L* 66 L ABG HCO3 Cancelled 28 H 29 H ABG O2 Saturation Cancelled 85 L 92 ABG Base Excess Cancelled 3 5 H VBG pH VBG pCO2 VBG pO2 VBG Base Excess 03/03/25 03/05/25 03/05/25 04:40 16:30 16:55 ABG pH 7.45 Cancelled 7.34 L D ABG pCO2 43 Cancelled 72 H* D ABG pO2 72 L Cancelled 83 ABG HCO3 30 H Cancelled 38 H ABG O2 Saturation 94 Cancelled 95 ABG Base Excess 5 H Cancelled 9 H VBG pH VBG pCO2 VBG pO2 VBG Base Excess 03/05/25 03/06/25 03/06/25 23:36 01:48 05:22 ABG pH 7.37 7.34 L 7.52 H D ABG pCO2 67 H 74 H* 47 D ABG pO2 150 H D 88 D 160 H D ABG HCO3 38 H 40 H 38 H ABG O2 Saturation 99 H 96 100 H ABG Base Excess 10 H 11 H 13 H VBG pH VBG pCO2 VBG pO2 VBG Base Excess 03/06/25 03/07/25 03/07/25 17:10 05:00 14:03 ABG pH 7.46 H ABG pCO2 53 H ABG pO2 65 L D ABG HCO3 38 H ABG O2 Saturation 93 ABG Base Excess 12 H VBG pH 7.50 7.52 VBG pCO2 50 47 VBG pO2 70 H 61 H VBG Base Excess 13 H 14 H 03/09/25 03/09/25 03/09/25 08:17 10:25 17:29 ABG pH 7.25 L D 7.29 L 7.29 L ABG pCO2 93 H* D 85 H* 88 H* ABG pO2 81 L 57 L* D 85 D ABG HCO3 41 H 40 H 43 H ABG O2 Saturation 95 89 L 97 ABG Base Excess 10 H 10 H 12 H VBG pH VBG pCO2 VBG pO2 VBG Base Excess 03/09/25 03/10/25 03/10/25 23:24 07:17 11:25 ABG pH 7.32 L 7.28 L 7.31 L ABG pCO2 78 H* D 90 H* D 81 H* ABG pO2 69 L 47 L* D 63 L ABG HCO3 40 H 43 H 41 H ABG O2 Saturation 94 80 L 93 ABG Base Excess 11 H 12 H 11 H VBG pH VBG pCO2 VBG pO2 VBG Base Excess 03/10/25 03/11/25 03/12/25 16:56 04:19 04:42 ABG pH 7.40 7.48 H 7.43 ABG pCO2 66 H D 54 H D 59 H ABG pO2 68 L 67 L 77 L ABG HCO3 41 H 40 H 39 H ABG O2 Saturation 94 94 96 ABG Base Excess 13 H 15 H 12 H VBG pH VBG pCO2 VBG pO2 VBG Base Excess 03/13/25 03/14/25 03/15/25 04:32 04:25 04:37 ABG pH 7.47 H 7.46 H 7.41 ABG pCO2 53 H 50 H 56 H ABG pO2 60 L 70 L 69 L ABG HCO3 38 H 36 H 35 H ABG O2 Saturation 93 95 95 ABG Base Excess 13 H 10 H 9 H VBG pH VBG pCO2 VBG pO2 VBG Base Excess 03/16/25 03/16/25 03/17/25 04:54 09:53 04:35 ABG pH 7.45 7.48 H 7.47 H ABG pCO2 51 H 49 H 53 H ABG pO2 68 L 34 L* D 87 D ABG HCO3 35 H 37 H 38 H ABG O2 Saturation 95 67 L 97 ABG Base Excess 10 H 12 H 13 H VBG pH VBG pCO2 VBG pO2 VBG Base Excess 03/18/25 03/19/25 04:26 05:00 ABG pH 7.44 7.45 ABG pCO2 57 H 55 H ABG pO2 107 D 73 L D ABG HCO3 38 H 38 H ABG O2 Saturation 99 H 96 ABG Base Excess 12 H 12 H VBG pH VBG pCO2 VBG pO2 VBG Base Excess Assessment & Plan A&P Narrative 64-year-old male with significant past medical history of hypertension, diabetes mellitus, A-fib was admitted to the ICU on 02/27/2025 after coming in with altered mental status and shortness of breath, intubated for acute hypoxic respiratory failure and had suspected obesity hypoventilation syndrome/obstructive sleep apnea/pneumonia and acute kidney injury. He was extubated on 03/03 and downgraded then re-intubated on 03/06 due to confusion and tachypneia. He was then extubated and downgraded to the floor on 03/07. On 03/10, patient again had decreased mentation on the BiPAP so was reintubated and upgraded. Cardiology has been consulted for suspected heart failure. #Right congestive heart failure with preserved EF. #Severe BASIA/OHS. #Hypernatremia. Echo on this admission showed poor quality images secondary to the patient's body habitus so was a technically limited study. Suspect chronic right heart failure in the setting of chronic obesity hypoventilation syndrome and obstructive sleep apnea. Currently appears to be more pulmonary component to respiratory failure than cardiac. Requiring ventilation support. -Echo 02/27/25: IVC appears to be dilated and also estimated RVSP also appears to be at least moderately elevated at 55 mmHg. 03/14/25: Will hold dirutics for now , he was given IV fluids yesterday. 03/15/25 : [place] catheter was placed by ICU team which showed PA pressure of more than 30s and wedge pressure was also high . started him on bumex drip . will continue the albumin . he is getting his peg tube today 03/16/25: ICU team tried another [place] catheter today which showed RA pressure of 25, PA pressure of 38, PCWP of 23. Plan is to continue Bumex for him. Cr stable at 2.5 03/17/2025: Net fluid balance -3350 cc. ICU team held Bumex due to significant electrolyte abnormalities, potassium 2.7. Once repleted Bumex drip will be resumed. Continue current management and monitor patient. 03/18/2025: net fluid balance -1650 , he received 1 dose of diamox yesterday. will continue to diures, he is off ventillor in blowby with PRN ventillator when he gets tired. 03/19/2025: no acute overnight event.Balance of -950 . ICU team put a swan catheter which showed he is adequately diressed for now, so bumex on hold for now. pending pegtube placement, its been difficult to do the procedure consedering his Rouxy history. Plan: 03/20/2025: Will hold dirutics for now, he was given IV LR and FWF via NG for hypernatremia. 03/21/2025: no acute overnight event. free water flushes increase today for hypernatremia . Xarelto resumed . bumex on hold ,Dr Doty recommending jejunostomy placement. #Atrial fibrillation, rate controlled. Patient notes positive history of afib. He had previously been on metoprolol succinate 100 mg BID. Currently appears rate-controlled in the 100s. CHADS-VASc score 4 Plan: - Metoprolol on hold in setting of right heart failure . -Resume Xarelto. -Continue amiodarone 200 mg qday. -Keep potassium >4.0 and mag >2.0. Rest of conditions to continue current management per primary team: #Acute hypoxic respiratory failure s/p tracheostomy. #Morbid obesity. #Community acquired pneumonia. #Elevated LFTs, resolved. #Hyperbilirubinemia, resolved. #History of type 2 diabetes. #Lactic acidosis, resolved. #KENIA on CKD. 03/22/2025: Patient has tracheostomy inplace and is unable to communicate much Telemetry reviewed and rest of the vital signs including the heart rate appears to be stable. Labs showed that the patient still continues to have hyponatremia at 150 and also has elevated creatinine at 2.6 and a BUN of 66. Patient is on renal water flushes for the hyponatremia and creatinine continues to improve and baseline creatinine appears to be around 2.0 Recommend to continue with free water flushes for now. Patient is morbidly obese with multiple comorbidities as mentioned below and overall prognosis appears to be poor Primary team to discuss with the family regarding goals of care. Management of rest of the medical conditions as per primary team and other consultants. Thank you for the consult and allowing me to participate in the care of the patient. Cardiology will continue to follow. Kobe Barahona M.D. Interventional Cardiology Time Spent With Patient Time: Total time spent is greater than 50% in coordination of care (as documented) at patient's floor/unit and/or counseling patient:
[2025-03-24] MEDS: POTASSIUM CHL 10 mEq IVPB 10 MEQ/100 ML BAG 75 MEQ IV ×2 (15:17→16:54)
[2025-03-24 16:31] LABS: Albumin, Serum 3.5 gm/dL (3.4-4.8); Anion Gap 5 (7-16); BUN/Creatinine Ratio 28 Ratio (12-20); Blood Urea Nitrogen 61 mg/dL (9-23); Calcium 8.7 mg/dL (8.3-10.6); Calcium (Corrected) 9.1 mg/dL (8.5-10.1); Carbon Dioxide 37.5 mMol/L (20.0-31.0); Chloride 106 mMol/L (98-107); Creatinine (Component) 2.2 mg/dL (0.6-1.3); Estimated Creatinine Clearance 56.3 mL/min (>60); Glucose 257 mg/dL (74-106); Osmolality,Calculated 320 (275-295); Phosphorous 3.6 mg/dL (2.4-5.1); Sodium 148 mMol/L (136-145); eGFR 32 See Note
[2025-03-24] MEDS: RIVAROXABAN 10 MG TABLET 20 MG GT (17:40)
[2025-03-25] VITALS (14 sets, daily range): BP systolic 120–144; BP diastolic 79–97; PULSE 57–107; RESP 16–22; TEMP 35.9–36.8; O2SAT 91–100; BMI 69.7
[2025-03-25] MEDS: INSULIN LISPRO (AdmeLOG) 1 UNIT/0.01 ML UNIT SC ×3 (05:16→17:31)
[2025-03-25] MEDS: Milk Of Magnesia Susp 30 ML UDC NG (05:17)
[2025-03-25 06:53] LABS: Basophils # (Auto) 0.1 Thou/mm3 (0.0-0.2); Basophils % (Auto) 1 % (0-2.5); Eosinophils # (Auto) 0.4 Thou/mm3 (0.0-0.5); Eosinophils % (Auto) 4 % (0-10); Hematocrit 40.3 % (41.0-53.0); Hemoglobin 12.1 g/dL (13.5-16.0); Immature Granulocytes % (Auto) 1 % (0-0); Immature Granulocytes Auto 0.09 Thou/mm3 (0.00-0.00); Lymphocytes # (Auto) 0.9 Thou/mm3 (1.0-4.8); Lymphocytes % (Auto) 9 % (10-50); Mean Corpuscular Volume 93 fL (80-100); Monocytes # (Auto) 1.1 Thou/mm3 (0.0-0.8); Monocytes % (Auto) 11 % (0-12); Neutrophils # (Auto) 7.6 Thou/mm3 (1.8-7.7); Neutrophils % (Auto) 75 % (37-80); Nucleated Red Blood Cell % 0 /100 WBC (0); Platelet Count 237 Thou/mm3 (140-440); Red Blood Count 4.32 Miln/mm3 (4.50-5.90); White Blood Count 10.2 Thou/mm3 (3.8-10.6)
[2025-03-25 06:57] LABS: Alanine Aminotransferase 13 U/L (10-49); Albumin, Serum 3.6 gm/dL (3.4-4.8); Albumin/Globulin Ratio 1.3 (1.2-2.2); Alkaline Phosphatase 136 U/L (46-116); Anion Gap 5 (7-16); Aspartate Amino Transferase 25 U/L (0-34); BUN/Creatinine Ratio 25 Ratio (12-20); Bilirubin,Total 0.8 mg/dL (0.3-1.2); Blood Urea Nitrogen 50 mg/dL (9-23); Calcium 9.1 mg/dL (8.3-10.6); Calcium (Corrected) 9.4 mg/dL (8.5-10.1); Carbon Dioxide 36.2 mMol/L (20.0-31.0); Chloride 102 mMol/L (98-107); Estimated Creatinine Clearance 61.9 mL/min (>60); Globulin 2.7 gm/dL (2.3-3.5); Glucose 237 mg/dL (74-106); Magnesium 2.2 mg/dL (1.6-2.6); Osmolality,Calculated 306 (275-295); Phosphorous 3.5 mg/dL (2.4-5.1); Potassium 3.9 mMol/L (3.4-5.1); Sodium 143 mMol/L (136-145); Total Protein 6.3 gm/dL (5.7-8.2); eGFR 36 See Note
--- NOTE | 2025-03-25 08:52 | ESPR_ITS ---
Documentation for date of: 03/25/25 Subjective Subjective Interval history: Mr. Ortega is a 64-year-old male with past medical history of DM2, hypertension, and A-fib Morbid obesity by BMIwas admitted to the ICU on 02/27/2025 after coming to the ED with complaints of altered mental status and shortness of breath. Patient was intubated in the ED therefore most of the history was taken from chart review and from the parents who are at bedside. EMS found the patient on the floor and he was saturating in the 70s even on high flow nasal cannula. Given his hypoxia patient was intubated in the ED. Patient spiked a fever while in the ED and he became hypotensive unresponsive to IV fluids therefore he was placed on vasopressors. During course of hospitalization patient had decreasing kidney function, patient notably edematous and has vascular congestion on x-ray, therefore was treated with Bumex. Despite diuresis therapy, patient kidney function continued to worsen, diuresis positive patient given free water flushes. Patient has had notably low albumin, ICU team recently started patient on albumin but not at the same time as diuretics. Nephrology was consulted due to worsening kidney function. Tracheostomy placed yesterday. Labs today show WBC 12.5, hemoglobin 12.1, platelets 346. Sodium 149, potassium 3.6, chloride 104, bicarb 33.5. BUN 76, creatinine 2.7, EGFR 25. Hemoglobin A1c 7.6%. 03/20/2025: Patient seen and examined in ICU, patient physically remains in ICU, downgraded to telemetry. Patient has not been able to get feeding for the last 3 days, had NG tube placed was started on tube feeds earlier today. Patient sodium of 153 this morning, free water deficit 5 L was started on free water flushes at 100 cc/h by primary team. Patient was given 500 cc IV bolus, diuresis continues to be on hold. Patient continues to be on mechanical ventilation. 03/21/2025: Patient seen and examined in telemetry. Patient's sodium increased to 153 this morning, free water flushes were decreased to 50 cc/hr yesterday. Free water flushes increased to 100 cc/h this morning by primary team, agree with that management. Patient's free water deficit is around 8.4 L for goal correction of sodium by 10. If patient's hypernatremia continues to be refractory, can consider increasing free water flushes to 150-200 cc/h in the morning. Patient's renal function today BUN 77, creatinine 2.6, EGFR 27. Continue to monitor sodium. 03/23/2025: Patient seen and examined in telemetry. Patient's sodium 149, is on free water flushes 100 cc/h. Continue free water flushes for hypernatremia management, can uptitrate free water flushes 250 cc/h if sodium does not improve. Renal function has improved creatinine 2.4, GFR 29, BUN 63. Will continue to monitor renal function. 03/24/2025: Patient seen and examined at bedside, resting comfortably. Patient is edematous, urine output not being recorded due to difficulty with catheter. Instead patient getting daily weights. Currently on free water flushes 100 cc/h. Sodium 148, potassium 3.8, bicarb 34.1, BUN 64, creatinine 2.2, EGFR 32. Diuretics were held due to sodium, will give Diamox x 1. 03/25/2025: Patient seen and examined at bedside, resting comfortably. Patient remains edematous, appears to have had good response to Diamox. Will give another x 1 Diamox. Sodium 143, potassium 3.9, bicarb 36.3, BUN 50, creatinine 2.2, EGFR 36. Will continue to monitor kidney function. Exam Vital Signs Temp Pulse Resp BP Pulse Ox O2 Del Method O2 Flow Rate 97.1 F 102 H 16 122/92 H 97 Mechanical Ventilation 12 03/25/25 08:00 03/25/25 08:00 03/25/25 08:00 03/25/25 08:00 03/25/25 08:00 03/25/25 08:00 03/24/25 15:55 FiO2 40 03/25/25 06:50 Objective Labs 03/25/25 05:10 03/25/25 13:01 Labs: Laboratory Results - last 24 hr 03/24/25 03/25/25 15:54 05:10 WBC 10.2 RBC 4.32 L Hgb 12.1 L Hct 40.3 L MCV 93 MCH 28.0 MCHC 30.0 L RDW Std Deviation 50.0 H Plt Count 237 Neut % (Auto) 75 Lymph % (Auto) 9 L Pettis % (Auto) 11 Eos % (Auto) 4 Baso % (Auto) 1 Neut # (Auto) 7.6 Lymph # (Auto) 0.9 L Pettis # (Auto) 1.1 H Eos # (Auto) 0.4 Baso # (Auto) 0.1 Immature Gran # (Auto) 0.09 H Absolute Nucleated RBC 0.00 Immature Gran % 1 H Nucleated RBC % 0 Sodium 148 H 143 Potassium 4.0 3.9 Chloride 106 102 Carbon Dioxide 37.5 H 36.2 H Anion Gap 5 L 5 L BUN 61 H 50 H Creatinine 2.2 H 2.0 H Estim Creat Clear Calc 56.3 L 61.9 eGFR 32 L 36 L BUN/Creatinine Ratio 28 H 25 H Glucose 257 H 237 H Calculated Osmolality 320 H 306 H Calcium 8.7 9.1 Corrected Calcium 9.1 9.4 Phosphorus 3.6 3.5 Magnesium 2.2 Total Bilirubin 0.8 AST 25 ALT 13 Alkaline Phosphatase 136 H Total Protein 6.3 Albumin 3.5 3.6 Globulin 2.7 Albumin/Globulin Ratio 1.3 ABG Interpretation ABG results: 02/27/25 02/28/25 03/01/25 06:55 04:57 04:39 ABG pH 7.27 L 7.37 D 7.41 ABG pCO2 57 H 48 44 ABG pO2 101 78 L D 69 L ABG HCO3 26 28 H 28 H ABG O2 Saturation 98 95 93 ABG Base Excess -2 2 3 VBG pH VBG pCO2 VBG pO2 VBG Base Excess 03/01/25 03/01/25 03/02/25 13:15 14:52 04:25 ABG pH Cancelled 7.41 7.45 ABG pCO2 Cancelled 45 42 ABG pO2 Cancelled 53 L* 66 L ABG HCO3 Cancelled 28 H 29 H ABG O2 Saturation Cancelled 85 L 92 ABG Base Excess Cancelled 3 5 H VBG pH VBG pCO2 VBG pO2 VBG Base Excess 03/03/25 03/05/25 03/05/25 04:40 16:30 16:55 ABG pH 7.45 Cancelled 7.34 L D ABG pCO2 43 Cancelled 72 H* D ABG pO2 72 L Cancelled 83 ABG HCO3 30 H Cancelled 38 H ABG O2 Saturation 94 Cancelled 95 ABG Base Excess 5 H Cancelled 9 H VBG pH VBG pCO2 VBG pO2 VBG Base Excess 03/05/25 03/06/25 03/06/25 23:36 01:48 05:22 ABG pH 7.37 7.34 L 7.52 H D ABG pCO2 67 H 74 H* 47 D ABG pO2 150 H D 88 D 160 H D ABG HCO3 38 H 40 H 38 H ABG O2 Saturation 99 H 96 100 H ABG Base Excess 10 H 11 H 13 H VBG pH VBG pCO2 VBG pO2 VBG Base Excess 03/06/25 03/07/25 03/07/25 17:10 05:00 14:03 ABG pH 7.46 H ABG pCO2 53 H ABG pO2 65 L D ABG HCO3 38 H ABG O2 Saturation 93 ABG Base Excess 12 H VBG pH 7.50 7.52 VBG pCO2 50 47 VBG pO2 70 H 61 H VBG Base Excess 13 H 14 H 03/09/25 03/09/25 03/09/25 08:17 10:25 17:29 ABG pH 7.25 L D 7.29 L 7.29 L ABG pCO2 93 H* D 85 H* 88 H* ABG pO2 81 L 57 L* D 85 D ABG HCO3 41 H 40 H 43 H ABG O2 Saturation 95 89 L 97 ABG Base Excess 10 H 10 H 12 H VBG pH VBG pCO2 VBG pO2 VBG Base Excess 03/09/25 03/10/25 03/10/25 23:24 07:17 11:25 ABG pH 7.32 L 7.28 L 7.31 L ABG pCO2 78 H* D 90 H* D 81 H* ABG pO2 69 L 47 L* D 63 L ABG HCO3 40 H 43 H 41 H ABG O2 Saturation 94 80 L 93 ABG Base Excess 11 H 12 H 11 H VBG pH VBG pCO2 VBG pO2 VBG Base Excess 03/10/25 03/11/25 03/12/25 16:56 04:19 04:42 ABG pH 7.40 7.48 H 7.43 ABG pCO2 66 H D 54 H D 59 H ABG pO2 68 L 67 L 77 L ABG HCO3 41 H 40 H 39 H ABG O2 Saturation 94 94 96 ABG Base Excess 13 H 15 H 12 H VBG pH VBG pCO2 VBG pO2 VBG Base Excess 03/13/25 03/14/25 03/15/25 04:32 04:25 04:37 ABG pH 7.47 H 7.46 H 7.41 ABG pCO2 53 H 50 H 56 H ABG pO2 60 L 70 L 69 L ABG HCO3 38 H 36 H 35 H ABG O2 Saturation 93 95 95 ABG Base Excess 13 H 10 H 9 H VBG pH VBG pCO2 VBG pO2 VBG Base Excess 03/16/25 03/16/25 03/17/25 04:54 09:53 04:35 ABG pH 7.45 7.48 H 7.47 H ABG pCO2 51 H 49 H 53 H ABG pO2 68 L 34 L* D 87 D ABG HCO3 35 H 37 H 38 H ABG O2 Saturation 95 67 L 97 ABG Base Excess 10 H 12 H 13 H VBG pH VBG pCO2 VBG pO2 VBG Base Excess 03/18/25 03/19/25 04:26 05:00 ABG pH 7.44 7.45 ABG pCO2 57 H 55 H ABG pO2 107 D 73 L D ABG HCO3 38 H 38 H ABG O2 Saturation 99 H 96 ABG Base Excess 12 H 12 H VBG pH VBG pCO2 VBG pO2 VBG Base Excess Quality Measures Quality Measures sepsis Current suspected stage: sepsis Possible source: pulmonary Blood cultures ordered: completed in ED Antibiotic ordered: Yes Advance care planning discussed with:: patient Assessment & Plan Assessment Current Active Medications: Generic Name Dose Route Start Last Admin Trade Name Freq PRN Reason Stop Dose Admin Acetaminophen 650 mg 03/23/25 17:36 03/23/25 17:50 Acetaminophen 325 Mg Tablet PO 03/29/25 09:23 650 mg Q4HR PRN Administration fever > 100.4 or Mild Pain 1-3 Al Hydrox/Mg Hydrox/Simethicone 30 ml 03/24/25 09:42 Mg Hyd/Al Hyd/Virgilio (Maalox Reg) Susp 30 Ml Udc NG 03/29/25 09:23 Q4HR PRN Heartburn or Upset Stomach Amiodarone HCl 200 mg 03/24/25 09:45 03/24/25 09:51 Amiodarone Hcl 200 Mg Tablet NG 03/31/25 08:59 200 mg QDAY KOURTNEY Administration Amlodipine Besylate 10 mg 03/24/25 09:45 03/24/25 09:52 Amlodipine Besylate 5 Mg Tablet NG 04/19/25 23:34 10 mg DAILY KOURTNEY Administration Bumetanide 2 mg 03/17/25 21:00 03/18/25 21:28 Bumetanide Inj 0.25 Mg/Ml Vial 4 Ml IVP 04/16/25 20:59 2 mg BID KOURTNEY Administration Dextrose 25 ml 03/03/25 08:20 Dextrose 50%-Water Inj 50 Ml Syringe IV 04/02/25 08:19 Q15MIN PRN BG 50-70 responsive npo pt Dextrose 50 ml 03/03/25 08:20 Dextrose 50%-Water Inj 50 Ml Syringe IV 04/02/25 08:19 Q15MIN PRN BG <50 OR BG <70 & pt unresponsive Glucagon 1 mg 03/03/25 08:20 Glucagon Inj 1 Mg Vial IM Q15MIN PRN BG <70, and no IV access Albumin Human 25 gm in 100 mls @ 100 mls/hr 03/24/25 11:15 03/24/25 20:08 Albuminar-25 Ivpb IV 03/27/25 11:14 100 mls/hr BID KOURTNEY Administration Insulin Glargine 15 unit 03/25/25 08:00 Insulin Glargine (Lantus) 5 Unit/0.05 Ml (Per 5 Units) SC 04/24/25 07:59 QDAY [facility] Insulin Human Lispro 0 unit 03/06/25 06:00 03/25/25 05:16 Insulin Lispro (Admelog) 1 Unit/0.01 Ml Unit SC 04/05/25 05:59 2 unit Q6H KOURTNEY Administration Protocol Insulin Human Lispro 2 unit 03/25/25 08:00 Insulin Lispro (Admelog) 1 Unit/0.01 Ml Unit SC 04/24/25 07:59 TIDWM [facility] Lansoprazole 30 mg 03/23/25 09:30 03/24/25 09:52 Lansoprazole 30 Mg Tab.Rap.Dr CHAPIN 04/21/25 08:59 30 mg QDAY KOURTNEY Administration Magnesium Hydroxide 30 ml 03/24/25 09:43 03/25/25 05:17 Milk Of Magnesia Susp 30 Ml Udc NG 03/29/25 09:23 30 ml QDAY PRN Administration CONSTIPATION Ondansetron HCl 4 mg 03/05/25 20:46 03/09/25 03:49 Ondansetron Inj 2 Mg/Ml Inj 2 Ml IV 04/04/25 20:45 4 mg Q6HR PRN Administration NAUSEA OR VOMITING Protocol Rivaroxaban 20 mg 03/23/25 17:30 03/24/25 17:40 Rivaroxaban 10 Mg Tablet GT 04/03/25 17:29 20 mg WSUPPER KOURTNEY Administration Plan 64-year-old male with past medical history of DM2, hypertension, and A-fib was admitted to the ICU on 02/27/2025 for acute hypoxic respiratory failure and altered mental status requiring intubation. Nephrology consulted for acute renal failure with worsening kidney function. #KENIA #Metabolic alkalosis #Hypernatremia, Hyper-osmolar Patient has no history of chronic kidney disease. Patient developed KENIA with worsening renal function during hospitalization. Initially suspected of cardiorenal syndrome, was treated with IV Bumex. Despite diuretic therapy patient kidney function continued to worsen. Suspect currently in ATN. Bumex was held, patient started on free water flushes. Patient continued to have worsening kidney function. Patient started on albumin today. Patient appears intravascularly depleted and intravascularly fluid overloaded. Ultrasound taken, unable to visualize kidneys. Urinalysis done showing trace blood, trace protein, 3+ uric acid crystals, 2+ bacteria. Urine total protein 99, urine creatinine 104. Nephrotic proteinuria ruled out, suspect KENIA related to right heart failure in the setting of elevated cardiac wedge pressure. [place] catheter shows patient is not fluid overloaded. Patient is continue to get free water flushes, unable to accurately track ins and outs due to difficulties with catheter. Currently being weighed daily Patient had good response to Diamox, will give another x 1 today. Continue holding Bumex, sodium has normalized, monitor closely. -Free water flushes 100 cc/h -Avoid nephrotoxic agent -Renally dose medication -Monitor daily labs -Diamox 500 mg IV x 1 -Continue holding diuresis -Albumin 25 g IV twice daily #Acute encephalopathy #Right diastolic CHF #Hx of A-fib #Acute on chronic hypoxic and hypercapnic respiratory failure #Obesity hypoventilation syndrome and obstructive sleep apnea #Community-acquired pneumonia, Enterobacter [place] #Morbid obesity #DM2 #Community-acquired pneumonia, Enterobacter cloacoe Management as per primary team Thank you for allowing us to participate in the care of this patient. Management discussed with attending Dr. Gannon. Anil Rodriguez MD PGY?1 Attending Provider Attestation/Addendum Patient seen and examined with resident physician Dr. Campos. Note reviewed, agree with findings and recommendations. 03/25/2025 Morbidly obese gentleman presented with acute hypoxic/hypercarbic respiratory failure. On ventilator. Significant anasarca noted. Patient made good urine. Currently in KENIA. Hypernatremia-on free water flushes. cr stable one dose Diamox given s/p trach. NGT feeds, free water flushes ordered Plan of care discussed with primary team.
[2025-03-25] MEDS: ACETAzolaMIDE SOD 500 MG in SODIUM CHLORIDE 0.9% (Popper) 50 ML 100 MG IV (10:11)
[2025-03-25] MEDS: AMIODARONE HCL 200 MG TABLET NG (10:12)
[2025-03-25] MEDS: LANSOPRAZOLE 30 MG TAB.RAP.DR NG (10:13)
[2025-03-25] MEDS: amLODIPine BESYLATE 5 MG TABLET 10 MG NG (10:13)
[2025-03-25] MEDS: ALBUMIN HUMAN 25% IVPB 25 GM/100 ML BTL IV ×2 (10:14→20:51)
[2025-03-25] MEDS: INSULIN GLARGINE (Lantus) 5 UNIT/0.05 ML (PER 5 UNITS) 20 UNIT SC (10:14)
[2025-03-25] MEDS: POTASSIUM CHL 10 mEq IVPB 10 MEQ/100 ML BAG 100 MEQ IV (11:30)
--- NOTE | 2025-03-25 11:58 | ESPR_ITS ---
<Statement entered by Lenora John MD - 03/26/25 08:18> I evaluated the patient in the telemetry floor patient was transferred telemetry still on tracheostomy with ventilation patient's sodium slowly corrected clinically appears to be euvolemic does not complain of any cardiac symptoms. Remains A-fib rate controlled does not complain of any other symptoms evaluate the patient with PGY 3 and agree with the treatment plan recommendation as documented Documentation for date of: 03/25/25 Subjective Subjective Interval history: Patient was examined bedside this morning , speech therapist was at bedside , kidney function improving . Na is normal today at 143 . Bumex still on hold. Exam Vital Signs Temp Pulse Resp BP Pulse Ox O2 Del Method O2 Flow Rate 97.1 F 95 16 120/90 H 97 Mechanical Ventilation 12 03/25/25 08:00 03/25/25 10:13 03/25/25 08:00 03/25/25 10:13 03/25/25 08:00 03/25/25 08:00 03/24/25 15:55 FiO2 40 03/25/25 06:50 Narrative Exam Gen: Well-developed and well-nourished morbidly obese male. HEENT: NCAT, PERRLA, EOMI, MMM, anicteric conjunctivae, tracheostomy in place. CVS: Decreased heart sounds, normal S1 and S2. RRR. No M/R/G. Resp: Decreased breath sounds B/L. No rhonchi, rales, crackles or wheezing. Abd: soft, morbidly obese, non-tender, non-distended. BS+ in all 4 quadrants. Pitting edema over bilateral flanks and sides. MSK: Good ROM in BUE & BLE. 3+ pitting edema BLE. Neuro: Limited exam due to medical condition. Objective Labs 03/25/25 05:10 03/25/25 05:10 Labs: Laboratory Results - last 24 hr 03/24/25 03/25/25 15:54 05:10 WBC 10.2 RBC 4.32 L Hgb 12.1 L Hct 40.3 L MCV 93 MCH 28.0 MCHC 30.0 L RDW Std Deviation 50.0 H Plt Count 237 Neut % (Auto) 75 Lymph % (Auto) 9 L Clare % (Auto) 11 Eos % (Auto) 4 Baso % (Auto) 1 Neut # (Auto) 7.6 Lymph # (Auto) 0.9 L Clare # (Auto) 1.1 H Eos # (Auto) 0.4 Baso # (Auto) 0.1 Immature Gran # (Auto) 0.09 H Absolute Nucleated RBC 0.00 Immature Gran % 1 H Nucleated RBC % 0 Sodium 148 H 143 Potassium 4.0 3.9 Chloride 106 102 Carbon Dioxide 37.5 H 36.2 H Anion Gap 5 L 5 L BUN 61 H 50 H Creatinine 2.2 H 2.0 H Estim Creat Clear Calc 56.3 L 61.9 eGFR 32 L 36 L BUN/Creatinine Ratio 28 H 25 H Glucose 257 H 237 H Calculated Osmolality 320 H 306 H Calcium 8.7 9.1 Corrected Calcium 9.1 9.4 Phosphorus 3.6 3.5 Magnesium 2.2 Total Bilirubin 0.8 AST 25 ALT 13 Alkaline Phosphatase 136 H Total Protein 6.3 Albumin 3.5 3.6 Globulin 2.7 Albumin/Globulin Ratio 1.3 ABG Interpretation ABG results: 02/27/25 02/28/25 03/01/25 06:55 04:57 04:39 ABG pH 7.27 L 7.37 D 7.41 ABG pCO2 57 H 48 44 ABG pO2 101 78 L D 69 L ABG HCO3 26 28 H 28 H ABG O2 Saturation 98 95 93 ABG Base Excess -2 2 3 VBG pH VBG pCO2 VBG pO2 VBG Base Excess 03/01/25 03/01/25 03/02/25 13:15 14:52 04:25 ABG pH Cancelled 7.41 7.45 ABG pCO2 Cancelled 45 42 ABG pO2 Cancelled 53 L* 66 L ABG HCO3 Cancelled 28 H 29 H ABG O2 Saturation Cancelled 85 L 92 ABG Base Excess Cancelled 3 5 H VBG pH VBG pCO2 VBG pO2 VBG Base Excess 03/03/25 03/05/25 03/05/25 04:40 16:30 16:55 ABG pH 7.45 Cancelled 7.34 L D ABG pCO2 43 Cancelled 72 H* D ABG pO2 72 L Cancelled 83 ABG HCO3 30 H Cancelled 38 H ABG O2 Saturation 94 Cancelled 95 ABG Base Excess 5 H Cancelled 9 H VBG pH VBG pCO2 VBG pO2 VBG Base Excess 03/05/25 03/06/25 03/06/25 23:36 01:48 05:22 ABG pH 7.37 7.34 L 7.52 H D ABG pCO2 67 H 74 H* 47 D ABG pO2 150 H D 88 D 160 H D ABG HCO3 38 H 40 H 38 H ABG O2 Saturation 99 H 96 100 H ABG Base Excess 10 H 11 H 13 H VBG pH VBG pCO2 VBG pO2 VBG Base Excess 03/06/25 03/07/25 03/07/25 17:10 05:00 14:03 ABG pH 7.46 H ABG pCO2 53 H ABG pO2 65 L D ABG HCO3 38 H ABG O2 Saturation 93 ABG Base Excess 12 H VBG pH 7.50 7.52 VBG pCO2 50 47 VBG pO2 70 H 61 H VBG Base Excess 13 H 14 H 03/09/25 03/09/25 03/09/25 08:17 10:25 17:29 ABG pH 7.25 L D 7.29 L 7.29 L ABG pCO2 93 H* D 85 H* 88 H* ABG pO2 81 L 57 L* D 85 D ABG HCO3 41 H 40 H 43 H ABG O2 Saturation 95 89 L 97 ABG Base Excess 10 H 10 H 12 H VBG pH VBG pCO2 VBG pO2 VBG Base Excess 03/09/25 03/10/25 03/10/25 23:24 07:17 11:25 ABG pH 7.32 L 7.28 L 7.31 L ABG pCO2 78 H* D 90 H* D 81 H* ABG pO2 69 L 47 L* D 63 L ABG HCO3 40 H 43 H 41 H ABG O2 Saturation 94 80 L 93 ABG Base Excess 11 H 12 H 11 H VBG pH VBG pCO2 VBG pO2 VBG Base Excess 03/10/25 03/11/25 03/12/25 16:56 04:19 04:42 ABG pH 7.40 7.48 H 7.43 ABG pCO2 66 H D 54 H D 59 H ABG pO2 68 L 67 L 77 L ABG HCO3 41 H 40 H 39 H ABG O2 Saturation 94 94 96 ABG Base Excess 13 H 15 H 12 H VBG pH VBG pCO2 VBG pO2 VBG Base Excess 03/13/25 03/14/25 03/15/25 04:32 04:25 04:37 ABG pH 7.47 H 7.46 H 7.41 ABG pCO2 53 H 50 H 56 H ABG pO2 60 L 70 L 69 L ABG HCO3 38 H 36 H 35 H ABG O2 Saturation 93 95 95 ABG Base Excess 13 H 10 H 9 H VBG pH VBG pCO2 VBG pO2 VBG Base Excess 03/16/25 03/16/25 03/17/25 04:54 09:53 04:35 ABG pH 7.45 7.48 H 7.47 H ABG pCO2 51 H 49 H 53 H ABG pO2 68 L 34 L* D 87 D ABG HCO3 35 H 37 H 38 H ABG O2 Saturation 95 67 L 97 ABG Base Excess 10 H 12 H 13 H VBG pH VBG pCO2 VBG pO2 VBG Base Excess 03/18/25 03/19/25 04:26 05:00 ABG pH 7.44 7.45 ABG pCO2 57 H 55 H ABG pO2 107 D 73 L D ABG HCO3 38 H 38 H ABG O2 Saturation 99 H 96 ABG Base Excess 12 H 12 H VBG pH VBG pCO2 VBG pO2 VBG Base Excess Quality Measures Quality Measures sepsis Current suspected stage: ruled out Possible source: pulmonary Blood cultures ordered: completed in ED Antibiotic ordered: Yes Advance care planning discussed with:: patient Assessment & Plan Assessment Current Active Medications: Generic Name Dose Route Start Last Admin Trade Name Freq PRN Reason Stop Dose Admin Acetaminophen 650 mg 03/23/25 17:36 03/23/25 17:50 Acetaminophen 325 Mg Tablet PO 03/29/25 09:23 650 mg Q4HR PRN Administration fever > 100.4 or Mild Pain 1-3 Al Hydrox/Mg Hydrox/Simethicone 30 ml 03/24/25 09:42 Mg Hyd/Al Hyd/Virgilio (Maalox Reg) Susp 30 Ml Udc NG 03/29/25 09:23 Q4HR PRN Heartburn or Upset Stomach Amiodarone HCl 200 mg 03/24/25 09:45 03/25/25 10:12 Amiodarone Hcl 200 Mg Tablet NG 03/31/25 08:59 200 mg QDAY KOURTNEY Administration Amlodipine Besylate 10 mg 03/24/25 09:45 03/25/25 10:13 Amlodipine Besylate 5 Mg Tablet NG 04/19/25 23:34 10 mg DAILY KOURTNEY Administration Bumetanide 2 mg 03/17/25 21:00 03/18/25 21:28 Bumetanide Inj 0.25 Mg/Ml Vial 4 Ml IVP 04/16/25 20:59 2 mg BID KOURTNEY Administration Dextrose 25 ml 03/03/25 08:20 Dextrose 50%-Water Inj 50 Ml Syringe IV 04/02/25 08:19 Q15MIN PRN BG 50-70 responsive npo pt Dextrose 50 ml 03/03/25 08:20 Dextrose 50%-Water Inj 50 Ml Syringe IV 04/02/25 08:19 Q15MIN PRN BG <50 OR BG <70 & pt unresponsive Glucagon 1 mg 03/03/25 08:20 Glucagon Inj 1 Mg Vial IM Q15MIN PRN BG <70, and no IV access Albumin Human 25 gm in 100 mls @ 100 mls/hr 03/24/25 11:15 03/25/25 10:14 Albuminar-25 Ivpb IV 03/27/25 11:14 100 mls/hr BID KOURTNEY Administration Insulin Glargine 20 unit 03/25/25 10:15 03/25/25 10:14 Insulin Glargine (Lantus) 5 Unit/0.05 Ml (Per 5 Units) SC 04/24/25 10:14 20 unit QDAY KOURTNEY Administration Insulin Human Lispro 0 unit 03/25/25 12:00 03/25/25 11:28 Insulin Lispro (Admelog) 1 Unit/0.01 Ml Unit SC 04/24/25 11:59 3 unit Q6HR KOURTNEY Administration Protocol Lansoprazole 30 mg 03/23/25 09:30 03/25/25 10:13 Lansoprazole 30 Mg Tab.Rap. NG 04/21/25 08:59 30 mg QDAY KOURTNEY Administration Magnesium Hydroxide 30 ml 03/24/25 09:43 03/25/25 05:17 Milk Of Magnesia Susp 30 Ml Udc NG 03/29/25 09:23 30 ml QDAY PRN Administration CONSTIPATION Ondansetron HCl 4 mg 03/05/25 20:46 03/09/25 03:49 Ondansetron Inj 2 Mg/Ml Inj 2 Ml IV 04/04/25 20:45 4 mg Q6HR PRN Administration NAUSEA OR VOMITING Protocol Rivaroxaban 20 mg 05/10/25 17:30 03/24/25 17:40 Rivaroxaban 10 Mg Tablet GT 04/03/25 17:29 20 mg [facility] Administration Plan 64-year-old male with significant past medical history of hypertension, diabetes mellitus, A-fib was admitted to the ICU on 02/27/2025 after coming in with altered mental status and shortness of breath, intubated for acute hypoxic respiratory failure and had suspected obesity hypoventilation syndrome/obstructive sleep apnea/pneumonia and acute kidney injury. He was extubated on 03/03 and downgraded then re-intubated on 03/06 due to confusion and tachypneia. He was then extubated and downgraded to the floor on 03/07. On 03/10, patient again had decreased mentation on the BiPAP so was reintubated and upgraded. Cardiology has been consulted for suspected heart failure. #Right congestive heart failure with preserved EF. #Severe BASIA/OHS. #Hypernatremia. Echo on this admission showed poor quality images secondary to the patient's body habitus so was a technically limited study. Suspect chronic right heart failure in the setting of chronic obesity hypoventilation syndrome and obstructive sleep apnea. Currently appears to be more pulmonary component to respiratory failure than cardiac. Requiring ventilation support. -Echo 02/27/25: IVC appears to be dilated and also estimated RVSP also appears to be at least moderately elevated at 55 mmHg. 03/14/25: Will hold dirutics for now , he was given IV fluids yesterday. 03/15/25 : [place] catheter was placed by ICU team which showed PA pressure of more than 30s and wedge pressure was also high . started him on bumex drip . will continue the albumin . he is getting his peg tube today 03/16/25: ICU team tried another [place] catheter today which showed RA pressure of 25, PA pressure of 38, PCWP of 23. Plan is to continue Bumex for him. Cr stable at 2.5 03/17/2025: Net fluid balance -3350 cc. ICU team held Bumex due to significant electrolyte abnormalities, potassium 2.7. Once repleted Bumex drip will be resumed. Continue current management and monitor patient. 03/18/2025: net fluid balance -1650 , he received 1 dose of diamox yesterday. will continue to diures, he is off ventillor in blowby with PRN ventillator when he gets tired. 03/19/2025: no acute overnight event.Balance of -950 . ICU team put a swan catheter which showed he is adequately diressed for now, so bumex on hold for now. pending pegtube placement, its been difficult to do the procedure consedering his Rouxy history. Plan: 03/20/2025: Will hold dirutics for now, he was given IV LR and FWF via NG for hypernatremia. 03/21/2025: no acute overnight event. free water flushes increase today for hypernatremia . Xarelto resumed . bumex on hold ,Dr Doty recommending jejunostomy placement. 03/22/2025: Patient has tracheostomy inplace and is unable to communicate much Telemetry reviewed and rest of the vital signs including the heart rate appears to be stable. Labs showed that the patient still continues to have hyponatremia at 150 and also has elevated creatinine at 2.6 and a BUN of 66. Patient is on renal water flushes for the hyponatremia and creatinine continues to improve and baseline creatinine appears to be around 2.0 Recommend to continue with free water flushes for now. Patient is morbidly obese with multiple comorbidities as mentioned below and overall prognosis appears to be poor Primary team to discuss with the family regarding goals of care. 03/23/2025 Continued on free water flushes, sodium 150 > 149. Renal function showing minor improvement with BUN 63, CR 2.4, EGFR 29. Poor urine output. 2/3+ LE edema noted on exam again. Vitals relatively normal, BP 121/92, HR 98 although spikes of HR 120s noted on tele, continued on blow-by and satting well. ? Continue with free-water flushes, monitor renal function closely ? Continue AMIODARONE 200 mg daily ? Continue AMLODIPINE 10 mg daily ? Continue XARELTO 20 mg ? Okay holding BUMEX 2 mg IV BID as per nephro team, may need HD eventually if renally function not improving, kadi givens persisting edema. 03/25/2025: no acute overnight event, he was given diamox by nephrology speech therapist was at bedside , kidney function improving . Na is normal today at 143 . Bumex still on hold. .Continue amiodarone 200 mg daily, Amlodipine 10 mg daily, Continue XARELTO 20 mg #Atrial fibrillation, rate controlled. Patient notes positive history of afib. He had previously been on metoprolol succinate 100 mg BID. Currently appears rate-controlled in the 100s. CHADS-VASc score 4 Plan: - Metoprolol on hold in setting of right heart failure . -Resume Xarelto. -Continue amiodarone 200 mg qday. -Keep potassium >4.0 and mag >2.0. Rest of conditions to continue current management per primary team: #Acute hypoxic respiratory failure s/p tracheostomy. #Morbid obesity. #Community acquired pneumonia. #Elevated LFTs, resolved. #Hyperbilirubinemia, resolved. #History of type 2 diabetes. #Lactic acidosis, resolved. #KENIA on CKD. Discussed the patient with my attending Dr Alvaro Newell MD, PGY-3
[2025-03-25 13:48] LABS: Albumin, Serum 3.3 gm/dL (3.4-4.8); Anion Gap 7 (7-16); BUN/Creatinine Ratio 27 Ratio (12-20); Blood Urea Nitrogen 53 mg/dL (9-23); Calcium 8.4 mg/dL (8.3-10.6); Carbon Dioxide 37.3 mMol/L (20.0-31.0); Chloride 103 mMol/L (98-107); Estimated Creatinine Clearance 61.9 mL/min (>60); Glucose 238 mg/dL (74-106); Osmolality,Calculated 314 (275-295); Potassium 4.2 mMol/L (3.4-5.1); Sodium 147 mMol/L (136-145); eGFR 36 See Note
--- NOTE | 2025-03-25 15:04 | ESPR_ITS ---
Documentation for date of: 03/25/25 Subjective Subjective Interval history: Patient examined at bedside today. No acute overnight events. Patient continues to be on blow-by. Will work with therapy later to see if patient will tolerate valve and see if they have dysphagia. Is continuously getting free water flushes 150 cc an hour. Will continue adjustments as we will see how patient tolerates speech therapy. Patient is still getting feedings through NG. Exam Vital Signs Temp Pulse Resp BP Pulse Ox O2 Del Method O2 Flow Rate 96.6 F L 68 21 H 134/89 H 98 Mechanical Ventilation 10 03/25/25 12:00 03/25/25 12:18 03/25/25 12:18 03/25/25 12:00 03/25/25 12:18 03/25/25 12:00 03/25/25 12:18 FiO2 40 03/25/25 12:18 Narrative Exam General: AAOx3, in mild distress, severely morbidly obese HEENT: Dry mucous membranes, conjunctiva clear, EOMI, PERRLA, trachestomy Cardiovascular: Ejection systolic murmur, radial pulses +2 bilat, irregularly irregular, Pulmonary: FiO2 40, Rate 10, PEEP 8, TV 420, on blow-by GI: No tenderness to light or deep palpitation, no guarding, rigidity, rebound tenderness or distension Extremities: +1 Pitting edema in lower extremities bilaterally, dorsalis pedis pulses +2 bilaterally Neuro: AAOx3, no focal motor or sensory deficits in the UE or LE bilat Objective Labs 03/25/25 05:10 03/25/25 13:01 Labs: Laboratory Results - last 24 hr 03/24/25 03/25/25 03/25/25 15:54 05:10 13:01 WBC 10.2 RBC 4.32 L Hgb 12.1 L Hct 40.3 L MCV 93 MCH 28.0 MCHC 30.0 L RDW Std Deviation 50.0 H Plt Count 237 Neut % (Auto) 75 Lymph % (Auto) 9 L [place] % (Auto) 11 Eos % (Auto) 4 Baso % (Auto) 1 Neut # (Auto) 7.6 Lymph # (Auto) 0.9 L [place] # (Auto) 1.1 H Eos # (Auto) 0.4 Baso # (Auto) 0.1 Immature Gran # (Auto) 0.09 H Absolute Nucleated RBC 0.00 Immature Gran % 1 H Nucleated RBC % 0 Sodium 148 H 143 147 H Potassium 4.0 3.9 4.2 Chloride 106 102 103 Carbon Dioxide 37.5 H 36.2 H 37.3 H Anion Gap 5 L 5 L 7 BUN 61 H 50 H 53 H Creatinine 2.2 H 2.0 H 2.0 H Estim Creat Clear Calc 56.3 L 61.9 61.9 eGFR 32 L 36 L 36 L BUN/Creatinine Ratio 28 H 25 H 27 H Glucose 257 H 237 H 238 H Calculated Osmolality 320 H 306 H 314 H Calcium 8.7 9.1 8.4 Corrected Calcium 9.1 9.4 9.0 Phosphorus 3.6 3.5 3.0 Magnesium 2.2 Total Bilirubin 0.8 AST 25 ALT 13 Alkaline Phosphatase 136 H Total Protein 6.3 Albumin 3.5 3.6 3.3 L Globulin 2.7 Albumin/Globulin Ratio 1.3 ABG Interpretation ABG results: 02/27/25 02/28/25 03/01/25 06:55 04:57 04:39 ABG pH 7.27 L 7.37 D 7.41 ABG pCO2 57 H 48 44 ABG pO2 101 78 L D 69 L ABG HCO3 26 28 H 28 H ABG O2 Saturation 98 95 93 ABG Base Excess -2 2 3 VBG pH VBG pCO2 VBG pO2 VBG Base Excess 03/01/25 03/01/25 03/02/25 13:15 14:52 04:25 ABG pH Cancelled 7.41 7.45 ABG pCO2 Cancelled 45 42 ABG pO2 Cancelled 53 L* 66 L ABG HCO3 Cancelled 28 H 29 H ABG O2 Saturation Cancelled 85 L 92 ABG Base Excess Cancelled 3 5 H VBG pH VBG pCO2 VBG pO2 VBG Base Excess 03/03/25 03/05/25 03/05/25 04:40 16:30 16:55 ABG pH 7.45 Cancelled 7.34 L D ABG pCO2 43 Cancelled 72 H* D ABG pO2 72 L Cancelled 83 ABG HCO3 30 H Cancelled 38 H ABG O2 Saturation 94 Cancelled 95 ABG Base Excess 5 H Cancelled 9 H VBG pH VBG pCO2 VBG pO2 VBG Base Excess 03/05/25 03/06/25 03/06/25 23:36 01:48 05:22 ABG pH 7.37 7.34 L 7.52 H D ABG pCO2 67 H 74 H* 47 D ABG pO2 150 H D 88 D 160 H D ABG HCO3 38 H 40 H 38 H ABG O2 Saturation 99 H 96 100 H ABG Base Excess 10 H 11 H 13 H VBG pH VBG pCO2 VBG pO2 VBG Base Excess 03/06/25 03/07/25 03/07/25 17:10 05:00 14:03 ABG pH 7.46 H ABG pCO2 53 H ABG pO2 65 L D ABG HCO3 38 H ABG O2 Saturation 93 ABG Base Excess 12 H VBG pH 7.50 7.52 VBG pCO2 50 47 VBG pO2 70 H 61 H VBG Base Excess 13 H 14 H 03/09/25 03/09/25 03/09/25 08:17 10:25 17:29 ABG pH 7.25 L D 7.29 L 7.29 L ABG pCO2 93 H* D 85 H* 88 H* ABG pO2 81 L 57 L* D 85 D ABG HCO3 41 H 40 H 43 H ABG O2 Saturation 95 89 L 97 ABG Base Excess 10 H 10 H 12 H VBG pH VBG pCO2 VBG pO2 VBG Base Excess 03/09/25 03/10/25 03/10/25 23:24 07:17 11:25 ABG pH 7.32 L 7.28 L 7.31 L ABG pCO2 78 H* D 90 H* D 81 H* ABG pO2 69 L 47 L* D 63 L ABG HCO3 40 H 43 H 41 H ABG O2 Saturation 94 80 L 93 ABG Base Excess 11 H 12 H 11 H VBG pH VBG pCO2 VBG pO2 VBG Base Excess 03/10/25 03/11/25 03/12/25 16:56 04:19 04:42 ABG pH 7.40 7.48 H 7.43 ABG pCO2 66 H D 54 H D 59 H ABG pO2 68 L 67 L 77 L ABG HCO3 41 H 40 H 39 H ABG O2 Saturation 94 94 96 ABG Base Excess 13 H 15 H 12 H VBG pH VBG pCO2 VBG pO2 VBG Base Excess 03/13/25 03/14/25 03/15/25 04:32 04:25 04:37 ABG pH 7.47 H 7.46 H 7.41 ABG pCO2 53 H 50 H 56 H ABG pO2 60 L 70 L 69 L ABG HCO3 38 H 36 H 35 H ABG O2 Saturation 93 95 95 ABG Base Excess 13 H 10 H 9 H VBG pH VBG pCO2 VBG pO2 VBG Base Excess 03/16/25 03/16/25 03/17/25 04:54 09:53 04:35 ABG pH 7.45 7.48 H 7.47 H ABG pCO2 51 H 49 H 53 H ABG pO2 68 L 34 L* D 87 D ABG HCO3 35 H 37 H 38 H ABG O2 Saturation 95 67 L 97 ABG Base Excess 10 H 12 H 13 H VBG pH VBG pCO2 VBG pO2 VBG Base Excess 03/18/25 03/19/25 04:26 05:00 ABG pH 7.44 7.45 ABG pCO2 57 H 55 H ABG pO2 107 D 73 L D ABG HCO3 38 H 38 H ABG O2 Saturation 99 H 96 ABG Base Excess 12 H 12 H VBG pH VBG pCO2 VBG pO2 VBG Base Excess Quality Measures Quality Measures sepsis Current suspected stage: ruled out Possible source: pulmonary Blood cultures ordered: completed in ED Antibiotic ordered: No Advance care planning discussed with:: patient Assessment & Plan Assessment Current Active Medications: Generic Name Dose Route Start Last Admin Trade Name Freq PRN Reason Stop Dose Admin Acetaminophen 650 mg 03/23/25 17:36 03/23/25 17:50 Acetaminophen 325 Mg Tablet PO 03/29/25 09:23 650 mg Q4HR PRN Administration fever > 100.4 or Mild Pain 1-3 Al Hydrox/Mg Hydrox/Simethicone 30 ml 03/24/25 09:42 Mg Hyd/Al Hyd/Virgilio (Maalox Reg) Susp 30 Ml Udc NG 03/29/25 09:23 Q4HR PRN Heartburn or Upset Stomach Amiodarone HCl 200 mg 03/24/25 09:45 03/25/25 10:12 Amiodarone Hcl 200 Mg Tablet NG 03/31/25 08:59 200 mg QDAY KOURTNEY Administration Amlodipine Besylate 10 mg 03/24/25 09:45 03/25/25 10:13 Amlodipine Besylate 5 Mg Tablet NG 04/19/25 23:34 10 mg DAILY KOURTNEY Administration Bumetanide 2 mg 03/17/25 21:00 03/18/25 21:28 Bumetanide Inj 0.25 Mg/Ml Vial 4 Ml IVP 04/16/25 20:59 2 mg BID KOURTNEY Administration Dextrose 25 ml 03/03/25 08:20 Dextrose 50%-Water Inj 50 Ml Syringe IV 04/02/25 08:19 Q15MIN PRN BG 50-70 responsive npo pt Dextrose 50 ml 03/03/25 08:20 Dextrose 50%-Water Inj 50 Ml Syringe IV 04/02/25 08:19 Q15MIN PRN BG <50 OR BG <70 & pt unresponsive Glucagon 1 mg 03/03/25 08:20 Glucagon Inj 1 Mg Vial IM Q15MIN PRN BG <70, and no IV access Albumin Human 25 gm in 100 mls @ 100 mls/hr 03/24/25 11:15 03/25/25 10:14 Albuminar-25 Ivpb IV 03/27/25 11:14 100 mls/hr BID KOURTNEY Administration Insulin Glargine 20 unit 03/25/25 10:15 03/25/25 10:14 Insulin Glargine (Lantus) 5 Unit/0.05 Ml (Per 5 Units) SC 04/24/25 10:14 20 unit QDAY KOURTNEY Administration Insulin Human Lispro 0 unit 03/25/25 12:00 03/25/25 11:28 Insulin Lispro (Admelog) 1 Unit/0.01 Ml Unit SC 04/24/25 11:59 3 unit Q6HR KOURTNEY Administration Protocol Lansoprazole 30 mg 03/23/25 09:30 03/25/25 10:13 Lansoprazole 30 Mg Tab.Rap.Dr CHAPIN 04/21/25 08:59 30 mg QDAY KOURTNEY Administration Magnesium Hydroxide 30 ml 03/24/25 09:43 03/25/25 05:17 Milk Of Magnesia Susp 30 Ml Udc NG 03/29/25 09:23 30 ml QDAY PRN Administration CONSTIPATION Ondansetron HCl 4 mg 03/05/25 20:46 03/09/25 03:49 Ondansetron Inj 2 Mg/Ml Inj 2 Ml IV 04/04/25 20:45 4 mg Q6HR PRN Administration NAUSEA OR VOMITING Protocol Rivaroxaban 20 mg 03/23/25 17:30 03/24/25 17:40 Rivaroxaban 10 Mg Tablet GT 04/03/25 17:29 20 mg [facility] Administration Plan Assessment 64-year-old male with past medical history of DM2, hypertension, A-fib, and Jehova's witness was admitted to the ICU on 02/27/2025 for shock and acute hypoxic respiratory failure. 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 NG placement lost, unable to replace. DR. Doty consulted and will re-insert NG tube. General surgery, IR unable to do J- tube given history of daniel-en-y gastric bypass. Patient would benefit from TPN/PPN. Resumed tube feeds via NG tube Glucerna IR unable to put in PICC line today for TPN Continues to be on blow-by. Did not tolerate PMS valve, as per speech therapist patient will need time to adjust further tracheostomy before the trial of PNS. Will reevaluate if the patient tolerated the PMS we will do another session of speech evaluation, the patient unable to perform the speech evaluation we will transfer the patient to higher level of care for placement of PEG tube versus duodenojejunostomy. Patient will work with speech therapy to see if patient's dysphagia improves Patient will likely fail, and also will likely require tracheostomy due to respiratory failure Will consider LTAC placement in the near future as patient will need IR jejunostomy or IR PEG Plan: -Glucerna 1.[address] recommendations via NG tube, water flushes 150 cc an hour #Right diastolic CHF, improved Echo could not visualize all chambers with limited ability to determine patient's ejection fraction. Given body habitus, history of obstructive sleep apnea and obesity hypoventilation syndrome, right heart failure suspected. Lower pedal edema likely combination of heart failure and third spacing. [place] 03/15 showed elevated RAP 25 PAP 38 PCWP 23. [place] 03/16/2025 PCWP 9 (=17-8) [place] 03/19/2025: RAP 8, PAP 27, PCWP 7 Dry weight: 197.9 Dry BNP 135 High cardiac output Continuing water flushes at this time at 100 cc an hour, will have to do body weights to assess for urine output as patient does not have Fuller or condom catheter at this time His weight today is 201 kg Consult with nephro and cardio if we need diuresis Plan: ? Cardiology consulted, appreciate recs ? Continuing to hold Bumex - Daily weights - Strict I&O #Hx of A-fib [id number] score of 3 points indicating 3.2% risk of stroke per year HAS-BLED: 0 Plan: - Continue PO amiodarone 200 mg qday with small sips of water ? Potassium and magnesium above 4 and 2 respectively - Resumed Xarelto ? Telemetry #Acute on chronic hypoxic and hypercapnic respiratory failure #Obesity hypoventilation syndrome and obstructive sleep apnea #Community-acquired pneumonia, Enterobacter [place] #Tracheostomy Patient was intubated on 02/27/2025, extubated 03/03/2025. Reintubated on 03/06/2025 and extubated 03/07/2025. Reintubated 03/10/2025 for hypercapnic encephalopathy Tracheostomy tube placed 03/15 [place] 03/19/2025 PEEP 8, RR 10, FiO2 40, TV 420 Blow-by during the day, ventilation at night will continue to feed patient, with hopes of mentation improving and possible removal of tracheostomy Will see if patient tolerates PMV valve today Plan: ?Ventilatory support at bedtime, blow-by during the day. - Continue vent, wean as tolerated #KENIA improving #Hypokalemia #Hypernatremia Pre-renal from cardiorenal and edema in the setting of third spacing, low albumin. Bumex drip discontinued. Right heart cath shows CVP 8, shows appropriate diuresis, however patient will need some fluid at this time Unable to assess urine output as the penile area is retracted, there is also a wound from the pure wick during his stay, the patient is immobile. Will continue to monitor his intake, at this time his on water flushes 100 mL/h in addition to his 65 mL/h tube feed. Will decrease water flushes as seen with we reached to goal of sodium level. Creatinine 2.0 today, may consider diuresis tomorrow Plan: - Nephrology following, Dr. Gannon, appreciate recommendations ? Water flushes 150 cc/hour #Hypernatremia, Hyper-osmolar Sodium 143 today Will decrease water flushes 100 cc, however we will also do renal panel to see if we need to adjust water flushes Plan: ? Free water flushes 100 cc every hour ? Renal panel at 12 PM #Morbid obesity #DM2 A1C 7.6 on 03/05/2025 Patient has a BMI of 79.5 Plan: - ISS scale 2 - Hypoglycemia protocol ordered ? 20 units of Lantus #Normocytic Anemia likely secondary to anemia of chronic disease given normal MCV. No acute intervention, continue to monitor #Leukocytosis, resolved #Enterobacter cloacoe pneumonia, resolved. Finished Rocephin (03/06/2025) - Cefepime 03/18/2025, completed #Acute encephalopathy, resolved #Health Maintenance Disposition: Telemetry DVT prophylaxis: Heparin GI prophylaxis: Protonix Diet: NG tube feeds with Glucerna CODE STATUS: Full Patient seen and care discussed with my attending physician, Dr. Ravin Shields, PGY-1 Attending Provider Attestation/Addendum I attest that I was physically present for the evaluation, physical examination, lab and imaging review of the patient with the residents. I discussed the case with the residents and agree with the findings and plans of care as documented above. At bedside today, patient nods yes to feeling well. Was switched to blow-by as she has been tolerating. Attempt was made to try Passy-Daly valve speaking/swallowing. Patient failed the trial and was not able to swallow safely. Patient has been on NG tube since 03/19/2025. Attempt was made to decrease his free water flushes from 150 cc to 100 cc/h as patient has improvement in his sodium from 148 yesterday to 143 this morning. 47 during the afternoon, free water flushes changed back to 250 cc/h. Nephrology on board, kidney function continues to improve, 50/2.0 today, recommended to hold the Bumex, appreciate recommendations. We will continue to monitor his input and output along with weights strictly. Noted to have elevation on blood glucose, adjusted his insulin regimen. Discussed with case management and started the process for transfer to LTAC. Cortez Alicia MD
--- NOTE | 2025-03-25 16:41 | PD.IMPROG ---
Documentation for date of: 03/25/25 Subjective Subjective Interval history: Enteral feeding via the NGT Exam Vital Signs Temp Pulse Resp BP Pulse Ox O2 Del Method O2 Flow Rate 96.6 F L 68 21 H 134/89 H 98 Mechanical Ventilation 10 03/25/25 12:00 03/25/25 12:18 03/25/25 12:18 03/25/25 12:00 03/25/25 12:18 03/25/25 12:00 03/25/25 12:18 FiO2 40 03/25/25 12:18 Objective Labs 03/25/25 05:10 03/25/25 13:01 Labs: Laboratory Results - last 24 hr 03/25/25 03/25/25 05:10 13:01 WBC 10.2 RBC 4.32 L Hgb 12.1 L Hct 40.3 L MCV 93 MCH 28.0 MCHC 30.0 L RDW Std Deviation 50.0 H Plt Count 237 Neut % (Auto) 75 Lymph % (Auto) 9 L [place] % (Auto) 11 Eos % (Auto) 4 Baso % (Auto) 1 Neut # (Auto) 7.6 Lymph # (Auto) 0.9 L [place] # (Auto) 1.1 H Eos # (Auto) 0.4 Baso # (Auto) 0.1 Immature Gran # (Auto) 0.09 H Absolute Nucleated RBC 0.00 Immature Gran % 1 H Nucleated RBC % 0 Sodium 143 147 H Potassium 3.9 4.2 Chloride 102 103 Carbon Dioxide 36.2 H 37.3 H Anion Gap 5 L 7 BUN 50 H 53 H Creatinine 2.0 H 2.0 H Estim Creat Clear Calc 61.9 61.9 eGFR 36 L 36 L BUN/Creatinine Ratio 25 H 27 H Glucose 237 H 238 H Calculated Osmolality 306 H 314 H Calcium 9.1 8.4 Corrected Calcium 9.4 9.0 Phosphorus 3.5 3.0 Magnesium 2.2 Total Bilirubin 0.8 AST 25 ALT 13 Alkaline Phosphatase 136 H Total Protein 6.3 Albumin 3.6 3.3 L Globulin 2.7 Albumin/Globulin Ratio 1.3 Impressions Impression: Failure to thrive Status post Diego-en-Y gastrojejunostomy requiring NGT placement for enteral feeding ABG Interpretation ABG results: 02/27/25 02/28/25 03/01/25 06:55 04:57 04:39 ABG pH 7.27 L 7.37 D 7.41 ABG pCO2 57 H 48 44 ABG pO2 101 78 L D 69 L ABG HCO3 26 28 H 28 H ABG O2 Saturation 98 95 93 ABG Base Excess -2 2 3 VBG pH VBG pCO2 VBG pO2 VBG Base Excess 03/01/25 03/01/25 03/02/25 13:15 14:52 04:25 ABG pH Cancelled 7.41 7.45 ABG pCO2 Cancelled 45 42 ABG pO2 Cancelled 53 L* 66 L ABG HCO3 Cancelled 28 H 29 H ABG O2 Saturation Cancelled 85 L 92 ABG Base Excess Cancelled 3 5 H VBG pH VBG pCO2 VBG pO2 VBG Base Excess 03/03/25 03/05/25 03/05/25 04:40 16:30 16:55 ABG pH 7.45 Cancelled 7.34 L D ABG pCO2 43 Cancelled 72 H* D ABG pO2 72 L Cancelled 83 ABG HCO3 30 H Cancelled 38 H ABG O2 Saturation 94 Cancelled 95 ABG Base Excess 5 H Cancelled 9 H VBG pH VBG pCO2 VBG pO2 VBG Base Excess 03/05/25 03/06/25 03/06/25 23:36 01:48 05:22 ABG pH 7.37 7.34 L 7.52 H D ABG pCO2 67 H 74 H* 47 D ABG pO2 150 H D 88 D 160 H D ABG HCO3 38 H 40 H 38 H ABG O2 Saturation 99 H 96 100 H ABG Base Excess 10 H 11 H 13 H VBG pH VBG pCO2 VBG pO2 VBG Base Excess 03/06/25 03/07/25 03/07/25 17:10 05:00 14:03 ABG pH 7.46 H ABG pCO2 53 H ABG pO2 65 L D ABG HCO3 38 H ABG O2 Saturation 93 ABG Base Excess 12 H VBG pH 7.50 7.52 VBG pCO2 50 47 VBG pO2 70 H 61 H VBG Base Excess 13 H 14 H 03/09/25 03/09/25 03/09/25 08:17 10:25 17:29 ABG pH 7.25 L D 7.29 L 7.29 L ABG pCO2 93 H* D 85 H* 88 H* ABG pO2 81 L 57 L* D 85 D ABG HCO3 41 H 40 H 43 H ABG O2 Saturation 95 89 L 97 ABG Base Excess 10 H 10 H 12 H VBG pH VBG pCO2 VBG pO2 VBG Base Excess 03/09/25 03/10/25 03/10/25 23:24 07:17 11:25 ABG pH 7.32 L 7.28 L 7.31 L ABG pCO2 78 H* D 90 H* D 81 H* ABG pO2 69 L 47 L* D 63 L ABG HCO3 40 H 43 H 41 H ABG O2 Saturation 94 80 L 93 ABG Base Excess 11 H 12 H 11 H VBG pH VBG pCO2 VBG pO2 VBG Base Excess 03/10/25 03/11/25 03/12/25 16:56 04:19 04:42 ABG pH 7.40 7.48 H 7.43 ABG pCO2 66 H D 54 H D 59 H ABG pO2 68 L 67 L 77 L ABG HCO3 41 H 40 H 39 H ABG O2 Saturation 94 94 96 ABG Base Excess 13 H 15 H 12 H VBG pH VBG pCO2 VBG pO2 VBG Base Excess 03/13/25 03/14/25 03/15/25 04:32 04:25 04:37 ABG pH 7.47 H 7.46 H 7.41 ABG pCO2 53 H 50 H 56 H ABG pO2 60 L 70 L 69 L ABG HCO3 38 H 36 H 35 H ABG O2 Saturation 93 95 95 ABG Base Excess 13 H 10 H 9 H VBG pH VBG pCO2 VBG pO2 VBG Base Excess 03/16/25 03/16/25 03/17/25 04:54 09:53 04:35 ABG pH 7.45 7.48 H 7.47 H ABG pCO2 51 H 49 H 53 H ABG pO2 68 L 34 L* D 87 D ABG HCO3 35 H 37 H 38 H ABG O2 Saturation 95 67 L 97 ABG Base Excess 10 H 12 H 13 H VBG pH VBG pCO2 VBG pO2 VBG Base Excess 03/18/25 03/19/25 04:26 05:00 ABG pH 7.44 7.45 ABG pCO2 57 H 55 H ABG pO2 107 D 73 L D ABG HCO3 38 H 38 H ABG O2 Saturation 99 H 96 ABG Base Excess 12 H 12 H VBG pH VBG pCO2 VBG pO2 VBG Base Excess Assessment & Plan A&P Narrative 64-year-old male with significant past medical history of hypertension, diabetes mellitus, A-fib was admitted to the ICU on 02/27/2025 after coming in with altered mental status and shortness of breath, intubated for acute hypoxic respiratory failure and had suspected obesity hypoventilation syndrome/obstructive sleep apnea/pneumonia and acute kidney injury. He was extubated on 03/03 and downgraded then re-intubated on 03/06 due to confusion and tachypneia. He was then extubated and downgraded to the floor on 03/07. On 03/10, patient again had decreased mentation on the BiPAP so was reintubated and upgraded. Cardiology has been consulted for suspected heart failure. #Right congestive heart failure with preserved EF. #Severe BASIA/OHS. #Hypernatremia. Echo on this admission showed poor quality images secondary to the patient's body habitus so was a technically limited study. Suspect chronic right heart failure in the setting of chronic obesity hypoventilation syndrome and obstructive sleep apnea. Currently appears to be more pulmonary component to respiratory failure than cardiac. Requiring ventilation support. -Echo 02/27/25: IVC appears to be dilated and also estimated RVSP also appears to be at least moderately elevated at 55 mmHg. 03/14/25: Will hold dirutics for now , he was given IV fluids yesterday. 03/15/25 : [place] catheter was placed by ICU team which showed PA pressure of more than 30s and wedge pressure was also high . started him on bumex drip . will continue the albumin . he is getting his peg tube today 03/16/25: ICU team tried another [place] catheter today which showed RA pressure of 25, PA pressure of 38, PCWP of 23. Plan is to continue Bumex for him. Cr stable at 2.5 03/17/2025: Net fluid balance -3350 cc. ICU team held Bumex due to significant electrolyte abnormalities, potassium 2.7. Once repleted Bumex drip will be resumed. Continue current management and monitor patient. 03/18/2025: net fluid balance -1650 , he received 1 dose of diamox yesterday. will continue to diures, he is off ventillor in blowby with PRN ventillator when he gets tired. 03/19/2025: no acute overnight event.Balance of -950 . ICU team put a swan catheter which showed he is adequately diressed for now, so bumex on hold for now. pending pegtube placement, its been difficult to do the procedure consedering his Rouxy history. Plan: 03/20/2025: Will hold dirutics for now, he was given IV LR and FWF via NG for hypernatremia. 03/21/2025: no acute overnight event. free water flushes increase today for hypernatremia . Xarelto resumed . bumex on hold ,Dr Doty recommending jejunostomy placement. #Atrial fibrillation, rate controlled. Patient notes positive history of afib. He had previously been on metoprolol succinate 100 mg BID. Currently appears rate-controlled in the 100s. CHADS-VASc score 4 Plan: - Metoprolol on hold in setting of right heart failure . -Resume Xarelto. -Continue amiodarone 200 mg qday. -Keep potassium >4.0 and mag >2.0. Rest of conditions to continue current management per primary team: #Acute hypoxic respiratory failure s/p tracheostomy. #Morbid obesity. #Community acquired pneumonia. #Elevated LFTs, resolved. #Hyperbilirubinemia, resolved. #History of type 2 diabetes. #Lactic acidosis, resolved. #KENIA on CKD. 03/22/2025: Patient has tracheostomy inplace and is unable to communicate much Telemetry reviewed and rest of the vital signs including the heart rate appears to be stable. Labs showed that the patient still continues to have hyponatremia at 150 and also has elevated creatinine at 2.6 and a BUN of 66. Patient is on renal water flushes for the hyponatremia and creatinine continues to improve and baseline creatinine appears to be around 2.0 Recommend to continue with free water flushes for now. Patient is morbidly obese with multiple comorbidities as mentioned below and overall prognosis appears to be poor Primary team to discuss with the family regarding goals of care. Management of rest of the medical conditions as per primary team and other consultants. Thank you for the consult and allowing me to participate in the care of the patient. Cardiology will continue to follow. Kobe Barahona M.D. Interventional Cardiology Time Spent With Patient Time: Total time spent is greater than 50% in coordination of care (as documented) at patient's floor/unit and/or counseling patient:
[2025-03-25] MEDS: RIVAROXABAN 10 MG TABLET 20 MG GT (17:31)
[2025-03-26] VITALS (12 sets, daily range): BP systolic 125–140; BP diastolic 80–96; PULSE 68–111; RESP 12–26; TEMP 36.1–36.6; O2SAT 94–99; BMI 69.7
[2025-03-26] MEDS: INSULIN LISPRO (AdmeLOG) 1 UNIT/0.01 ML UNIT SC ×4 (00:45→18:21)
[2025-03-26 06:20] LABS: Basophils # (Auto) 0.1 Thou/mm3 (0.0-0.2); Basophils % (Auto) 1 % (0-2.5); Eosinophils # (Auto) 0.4 Thou/mm3 (0.0-0.5); Eosinophils % (Auto) 4 % (0-10); Hematocrit 36.5 % (41.0-53.0); Hemoglobin 11.1 g/dL (13.5-16.0); Immature Granulocytes % (Auto) 1 % (0-0); Immature Granulocytes Auto 0.08 Thou/mm3 (0.00-0.00); Lymphocytes % (Auto) 10 % (10-50); Mean Corpuscular HGB Conc 30.4 g/dl (31.0-37.0); Mean Corpuscular Hemoglobin 28.4 pg (25.0-35.0); Mean Corpuscular Volume 93 fL (80-100); Monocytes # (Auto) 1.2 Thou/mm3 (0.0-0.8); Monocytes % (Auto) 11 % (0-12); Neutrophils # (Auto) 7.9 Thou/mm3 (1.8-7.7); Neutrophils % (Auto) 74 % (37-80); Nucleated Red Blood Cell % 0 /100 WBC (0); Platelet Count 226 Thou/mm3 (140-440); RDW Standard Deviation 49.9 fL (35.1-43.9); Red Blood Count 3.91 Miln/mm3 (4.50-5.90); White Blood Count 10.7 Thou/mm3 (3.8-10.6)
[2025-03-26 06:50] LABS: Alanine Aminotransferase 13 U/L (10-49); Albumin, Serum 3.2 gm/dL (3.4-4.8); Albumin/Globulin Ratio 1.2 (1.2-2.2); Alkaline Phosphatase 130 U/L (46-116); Anion Gap 6 (7-16); Aspartate Amino Transferase 24 U/L (0-34); BUN/Creatinine Ratio 30 Ratio (12-20); Bilirubin,Total 0.8 mg/dL (0.3-1.2); Blood Urea Nitrogen 57 mg/dL (9-23); Calcium 8.5 mg/dL (8.3-10.6); Calcium (Corrected) 9.1 mg/dL (8.5-10.1); Carbon Dioxide 39.9 mMol/L (20.0-31.0); Chloride 101 mMol/L (98-107); Creatinine (Component) 1.9 mg/dL (0.6-1.3); Estimated Creatinine Clearance 65.2 mL/min (>60); Globulin 2.7 gm/dL (2.3-3.5); Glucose 210 mg/dL (74-106); Osmolality,Calculated 314 (275-295); Phosphorous 2.9 mg/dL (2.4-5.1); Potassium 3.9 mMol/L (3.4-5.1); Sodium 147 mMol/L (136-145); Total Protein 5.9 gm/dL (5.7-8.2); eGFR 39 See Note
[2025-03-26] MEDS: ALBUMIN HUMAN 25% IVPB 25 GM/100 ML BTL IV ×2 (08:31→21:32)
[2025-03-26] MEDS: AMIODARONE HCL 200 MG TABLET NG (08:32)
[2025-03-26] MEDS: ACETAzolaMIDE SOD 500 MG in SODIUM CHLORIDE 0.9% (Popper) 50 ML 100 MG IV (08:32)
[2025-03-26 08:33] LABS: Base Excess 12 (-3-3); HCO3 38 mEq/L (20-26); Inspired Oxygen, FIO2 35 %; O2 Saturation 97 % (91-98); PCO2 54 mmHg (32.0-48.0); PO2 79 mmHg (83-108); pH, Arterial 7.46 (7.35-7.45)
[2025-03-26] MEDS: amLODIPine BESYLATE 5 MG TABLET 10 MG NG (08:33)
[2025-03-26] MEDS: HYDROcodone/APAP 5/325 TABLET 1 TAB GT (08:33)
[2025-03-26] MEDS: LANSOPRAZOLE 30 MG TAB.RAP.DR NG (08:33)
[2025-03-26 08:34] LABS: Allen Test Performed/OK; Puncture Site Right Radial
[2025-03-26] MEDS: INSULIN GLARGINE (Lantus) 5 UNIT/0.05 ML (PER 5 UNITS) 25 UNIT SC (08:52)
--- NOTE | 2025-03-26 09:04 | PC.DIETICIAN ---
Nutrition prescription (updated) TwoCal HN at 25 ml/hr via ND tube by pump. Advance 10 ml every 8 hrs to goal rate of 42 ml/hr x 24 hrs. If no IV fluids, water flushes of 100 ml/hr (or per MD).
--- NOTE | 2025-03-26 09:15 | PC.SS ---
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
--- NOTE | 2025-03-26 09:26 | ESPR_ITS ---
Documentation for date of: 03/26/25 Subjective Subjective Interval history: Mr. Ortega is a 64-year-old male with past medical history of DM2, hypertension, and A-fib Morbid obesity by BMIwas admitted to the ICU on 02/27/2025 after coming to the ED with complaints of altered mental status and shortness of breath. Patient was intubated in the ED therefore most of the history was taken from chart review and from the parents who are at bedside. EMS found the patient on the floor and he was saturating in the 70s even on high flow nasal cannula. Given his hypoxia patient was intubated in the ED. Patient spiked a fever while in the ED and he became hypotensive unresponsive to IV fluids therefore he was placed on vasopressors. During course of hospitalization patient had decreasing kidney function, patient notably edematous and has vascular congestion on x-ray, therefore was treated with Bumex. Despite diuresis therapy, patient kidney function continued to worsen, diuresis positive patient given free water flushes. Patient has had notably low albumin, ICU team recently started patient on albumin but not at the same time as diuretics. Nephrology was consulted due to worsening kidney function. Tracheostomy placed yesterday. Labs today show WBC 12.5, hemoglobin 12.1, platelets 346. Sodium 149, potassium 3.6, chloride 104, bicarb 33.5. BUN 76, creatinine 2.7, EGFR 25. Hemoglobin A1c 7.6%. 03/20/2025: Patient seen and examined in ICU, patient physically remains in ICU, downgraded to telemetry. Patient has not been able to get feeding for the last 3 days, had NG tube placed was started on tube feeds earlier today. Patient sodium of 153 this morning, free water deficit 5 L was started on free water flushes at 100 cc/h by primary team. Patient was given 500 cc IV bolus, diuresis continues to be on hold. Patient continues to be on mechanical ventilation. 03/21/2025: Patient seen and examined in telemetry. Patient's sodium increased to 153 this morning, free water flushes were decreased to 50 cc/hr yesterday. Free water flushes increased to 100 cc/h this morning by primary team, agree with that management. Patient's free water deficit is around 8.4 L for goal correction of sodium by 10. If patient's hypernatremia continues to be refractory, can consider increasing free water flushes to 150-200 cc/h in the morning. Patient's renal function today BUN 77, creatinine 2.6, EGFR 27. Continue to monitor sodium. 03/23/2025: Patient seen and examined in telemetry. Patient's sodium 149, is on free water flushes 100 cc/h. Continue free water flushes for hypernatremia management, can uptitrate free water flushes 250 cc/h if sodium does not improve. Renal function has improved creatinine 2.4, GFR 29, BUN 63. Will continue to monitor renal function. 03/24/2025: Patient seen and examined at bedside, resting comfortably. Patient is edematous, urine output not being recorded due to difficulty with catheter. Instead patient getting daily weights. Currently on free water flushes 100 cc/h. Sodium 148, potassium 3.8, bicarb 34.1, BUN 64, creatinine 2.2, EGFR 32. Diuretics were held due to sodium, will give Diamox x 1. 03/25/2025: Patient seen and examined at bedside, resting comfortably. Patient remains edematous, appears to have had good response to Diamox. Will give another x 1 Diamox. Sodium 143, potassium 3.9, bicarb 36.3, BUN 50, creatinine 2.2, EGFR 36. Will continue to monitor kidney function. 03/25/2025: Patient seen and examined at bedside, notably uncomfortable. Patient complaining of lower back pain despite pain meds, recommend starting a muscle relaxer. Difficulty measuring patient urinary output, will attempt to place Fuller catheter. Patient had 6.7 L intake due to free water flushes for hypernatremia and tube feeds. Recommended using concentrated tube feeds to reduce total intake. Sodium 147, potassium 3.9, bicarb 39.9, BUN 57, creatinine 1.9, EGFR 39. ABG showed pH 7.46, pCO2 54, pO2 79, bicarb 38. Will give additional Diamox. Exam Vital Signs Temp Pulse Resp BP Pulse Ox O2 Del Method O2 Flow Rate 97.6 F 111 H 16 139/80 H 98 Mechanical Ventilation 10 03/26/25 08:00 03/26/25 08:33 03/26/25 08:00 03/26/25 08:33 03/26/25 08:00 03/26/25 08:00 03/26/25 04:00 FiO2 35 03/26/25 04:00 Narrative Exam PE: Gen: Well-developed and well-nourished. Morbidly Obese. HEENT: NCAT, PERRLA, EOMI, MMM, anicteric conjunctivae. CVS: normal S1 and S2. RRR. No M/R/G. Resp: CTA B/L. No rhonchi, rales, crackles or wheezing. Poor lung sounds due to body habitus. Coarse due to ventilator. Abd: soft, non-tender, non-distended. Very edematous pannus. MSK: Good ROM in BUE & BLE. No rash. Diffuse 2+ pitting edema in all extremities. Neuro: CN II-XII grossly intact. Tracheostomy in place. Objective Labs 03/27/25 05:29 03/26/25 05:09 Labs: Laboratory Results - last 24 hr 03/25/25 03/26/25 03/26/25 13:01 05:09 08:20 WBC 10.7 H RBC 3.91 L Hgb 11.1 L Hct 36.5 L MCV 93 MCH 28.4 MCHC 30.4 L RDW Std Deviation 49.9 H Plt Count 226 Neut % (Auto) 74 Lymph % (Auto) 10 [place] % (Auto) 11 Eos % (Auto) 4 Baso % (Auto) 1 Neut # (Auto) 7.9 H Lymph # (Auto) 1.0 [place] # (Auto) 1.2 H Eos # (Auto) 0.4 Baso # (Auto) 0.1 Immature Gran # (Auto) 0.08 H Absolute Nucleated RBC 0.00 Immature Gran % 1 H Nucleated RBC % 0 Puncture Site Right Radial ABG pH 7.46 H ABG pCO2 54 H ABG pO2 79 L ABG HCO3 38 H ABG O2 Saturation 97 ABG Base Excess 12 H FiO2 35 Sodium 147 H 147 H Potassium 4.2 3.9 Chloride 103 101 Carbon Dioxide 37.3 H 39.9 H Anion Gap 7 6 L BUN 53 H 57 H Creatinine 2.0 H 1.9 H Estim Creat Clear Calc 61.9 65.2 eGFR 36 L 39 L BUN/Creatinine Ratio 27 H 30 H Glucose 238 H 210 H Calculated Osmolality 314 H 314 H Calcium 8.4 8.5 Corrected Calcium 9.0 9.1 Phosphorus 3.0 2.9 Magnesium 2.0 Total Bilirubin 0.8 AST 24 ALT 13 Alkaline Phosphatase 130 H Total Protein 5.9 Albumin 3.3 L 3.2 L Globulin 2.7 Albumin/Globulin Ratio 1.2 ABG Interpretation ABG results: 02/27/25 02/28/25 03/01/25 06:55 04:57 04:39 ABG pH 7.27 L 7.37 D 7.41 ABG pCO2 57 H 48 44 ABG pO2 101 78 L D 69 L ABG HCO3 26 28 H 28 H ABG O2 Saturation 98 95 93 ABG Base Excess -2 2 3 VBG pH VBG pCO2 VBG pO2 VBG Base Excess 03/01/25 03/01/25 03/02/25 13:15 14:52 04:25 ABG pH Cancelled 7.41 7.45 ABG pCO2 Cancelled 45 42 ABG pO2 Cancelled 53 L* 66 L ABG HCO3 Cancelled 28 H 29 H ABG O2 Saturation Cancelled 85 L 92 ABG Base Excess Cancelled 3 5 H VBG pH VBG pCO2 VBG pO2 VBG Base Excess 03/03/25 03/05/25 03/05/25 04:40 16:30 16:55 ABG pH 7.45 Cancelled 7.34 L D ABG pCO2 43 Cancelled 72 H* D ABG pO2 72 L Cancelled 83 ABG HCO3 30 H Cancelled 38 H ABG O2 Saturation 94 Cancelled 95 ABG Base Excess 5 H Cancelled 9 H VBG pH VBG pCO2 VBG pO2 VBG Base Excess 03/05/25 03/06/25 03/06/25 23:36 01:48 05:22 ABG pH 7.37 7.34 L 7.52 H D ABG pCO2 67 H 74 H* 47 D ABG pO2 150 H D 88 D 160 H D ABG HCO3 38 H 40 H 38 H ABG O2 Saturation 99 H 96 100 H ABG Base Excess 10 H 11 H 13 H VBG pH VBG pCO2 VBG pO2 VBG Base Excess 03/06/25 03/07/25 03/07/25 17:10 05:00 14:03 ABG pH 7.46 H ABG pCO2 53 H ABG pO2 65 L D ABG HCO3 38 H ABG O2 Saturation 93 ABG Base Excess 12 H VBG pH 7.50 7.52 VBG pCO2 50 47 VBG pO2 70 H 61 H VBG Base Excess 13 H 14 H 03/09/25 03/09/25 03/09/25 08:17 10:25 17:29 ABG pH 7.25 L D 7.29 L 7.29 L ABG pCO2 93 H* D 85 H* 88 H* ABG pO2 81 L 57 L* D 85 D ABG HCO3 41 H 40 H 43 H ABG O2 Saturation 95 89 L 97 ABG Base Excess 10 H 10 H 12 H VBG pH VBG pCO2 VBG pO2 VBG Base Excess 03/09/25 03/10/25 03/10/25 23:24 07:17 11:25 ABG pH 7.32 L 7.28 L 7.31 L ABG pCO2 78 H* D 90 H* D 81 H* ABG pO2 69 L 47 L* D 63 L ABG HCO3 40 H 43 H 41 H ABG O2 Saturation 94 80 L 93 ABG Base Excess 11 H 12 H 11 H VBG pH VBG pCO2 VBG pO2 VBG Base Excess 03/10/25 03/11/25 03/12/25 16:56 04:19 04:42 ABG pH 7.40 7.48 H 7.43 ABG pCO2 66 H D 54 H D 59 H ABG pO2 68 L 67 L 77 L ABG HCO3 41 H 40 H 39 H ABG O2 Saturation 94 94 96 ABG Base Excess 13 H 15 H 12 H VBG pH VBG pCO2 VBG pO2 VBG Base Excess 03/13/25 03/14/25 03/15/25 04:32 04:25 04:37 ABG pH 7.47 H 7.46 H 7.41 ABG pCO2 53 H 50 H 56 H ABG pO2 60 L 70 L 69 L ABG HCO3 38 H 36 H 35 H ABG O2 Saturation 93 95 95 ABG Base Excess 13 H 10 H 9 H VBG pH VBG pCO2 VBG pO2 VBG Base Excess 03/16/25 03/16/25 03/17/25 04:54 09:53 04:35 ABG pH 7.45 7.48 H 7.47 H ABG pCO2 51 H 49 H 53 H ABG pO2 68 L 34 L* D 87 D ABG HCO3 35 H 37 H 38 H ABG O2 Saturation 95 67 L 97 ABG Base Excess 10 H 12 H 13 H VBG pH VBG pCO2 VBG pO2 VBG Base Excess 03/18/25 03/19/25 03/26/25 04:26 05:00 08:20 ABG pH 7.44 7.45 7.46 H ABG pCO2 57 H 55 H 54 H ABG pO2 107 D 73 L D 79 L ABG HCO3 38 H 38 H 38 H ABG O2 Saturation 99 H 96 97 ABG Base Excess 12 H 12 H 12 H VBG pH VBG pCO2 VBG pO2 VBG Base Excess Quality Measures Quality Measures sepsis Current suspected stage: sepsis Possible source: pulmonary Blood cultures ordered: completed in ED Antibiotic ordered: Yes Advance care planning discussed with:: patient Assessment & Plan Assessment Current Active Medications: Generic Name Dose Route Start Last Admin Trade Name Freq PRN Reason Stop Dose Admin Acetaminophen 650 mg 03/23/25 17:36 03/23/25 17:50 Acetaminophen 325 Mg Tablet PO 03/29/25 09:23 650 mg Q4HR PRN Administration fever > 100.4 or Mild Pain 1-3 Hydrocodone Bitart/Acetaminophen 1 tab 03/26/25 07:57 03/26/25 08:33 Hydrocodone/Apap 5/325 Tablet GT 03/31/25 07:56 1 tab Q4HR PRN Administration PAIN Protocol Al Hydrox/Mg Hydrox/Simethicone 30 ml 03/24/25 09:42 Mg Hyd/Al Hyd/Virgilio (Maalox Reg) Susp 30 Ml Udc NG 03/29/25 09:23 Q4HR PRN Heartburn or Upset Stomach Amiodarone HCl 200 mg 03/24/25 09:45 03/26/25 08:32 Amiodarone Hcl 200 Mg Tablet NG 03/31/25 08:59 200 mg QDAY KOURTNEY Administration Amlodipine Besylate 10 mg 03/24/25 09:45 03/26/25 08:33 Amlodipine Besylate 5 Mg Tablet NG 04/19/25 23:34 10 mg DAILY KOURTNEY Administration Bumetanide 2 mg 03/17/25 21:00 03/18/25 21:28 Bumetanide Inj 0.25 Mg/Ml Vial 4 Ml IVP 04/16/25 20:59 2 mg BID KOURTNEY Administration Cyclobenzaprine HCl 5 mg 03/26/25 08:25 Cyclobenzaprine 5 Mg Tablet PO 04/25/25 08:24 TID PRN MUSCLE SPASMS Protocol Dextrose 25 ml 03/03/25 08:20 Dextrose 50%-Water Inj 50 Ml Syringe IV 04/02/25 08:19 Q15MIN PRN BG 50-70 responsive npo pt Dextrose 50 ml 03/03/25 08:20 Dextrose 50%-Water Inj 50 Ml Syringe IV 04/02/25 08:19 Q15MIN PRN BG <50 OR BG <70 & pt unresponsive Glucagon 1 mg 03/03/25 08:20 Glucagon Inj 1 Mg Vial IM Q15MIN PRN BG <70, and no IV access Albumin Human 25 gm in 100 mls @ 100 mls/hr 03/24/25 11:15 03/26/25 08:31 Albuminar-25 Ivpb IV 03/27/25 11:14 100 mls/hr BID KOURTNEY Administration Insulin Glargine 25 unit 03/26/25 09:00 03/26/25 08:52 Insulin Glargine (Lantus) 5 Unit/0.05 Ml (Per 5 Units) SC 04/25/25 08:59 25 unit QDAY KOURTNEY Administration Insulin Human Lispro 0 unit 03/25/25 12:00 03/26/25 06:01 Insulin Lispro (Admelog) 1 Unit/0.01 Ml Unit SC 04/24/25 11:59 3 unit Q6HR KORUTNEY Administration Protocol Lansoprazole 30 mg 03/23/25 09:30 03/26/25 08:33 Lansoprazole 30 Mg Tab.Rap.Dr CHAPIN 04/21/25 08:59 30 mg QDAY KOURTNEY Administration Magnesium Hydroxide 30 ml 03/24/25 09:43 03/25/25 05:17 Milk Of Magnesia Susp 30 Ml Udc NG 03/29/25 09:23 30 ml QDAY PRN Administration CONSTIPATION Ondansetron HCl 4 mg 03/05/25 20:46 03/09/25 03:49 Ondansetron Inj 2 Mg/Ml Inj 2 Ml IV 04/04/25 20:45 4 mg Q6HR PRN Administration NAUSEA OR VOMITING Protocol Rivaroxaban 20 mg 03/23/25 17:30 03/25/25 17:31 Rivaroxaban 10 Mg Tablet GT 04/03/25 17:29 20 mg WSUPPER KOURTNEY Administration Plan 64-year-old male with past medical history of DM2, hypertension, and A-fib was admitted to the ICU on 02/27/2025 for acute hypoxic respiratory failure and altered mental status requiring intubation. Nephrology consulted for acute renal failure with worsening kidney function. #KENIA #Metabolic alkalosis #Hypernatremia, Hyper-osmolar Patient has no history of chronic kidney disease. Patient developed KENIA with worsening renal function during hospitalization. Initially suspected of cardiorenal syndrome, was treated with IV Bumex. Despite diuretic therapy patient kidney function continued to worsen. Suspect currently in ATN. Bumex was held, patient started on free water flushes. Patient continued to have worsening kidney function. Patient started on albumin today. Patient appears intravascularly depleted and intravascularly fluid overloaded. Ultrasound taken, unable to visualize kidneys. Urinalysis done showing trace blood, trace protein, 3+ uric acid crystals, 2+ bacteria. Urine total protein 99, urine creatinine 104. Nephrotic proteinuria ruled out, suspect KENIA related to right heart failure in the setting of elevated cardiac wedge pressure. [place]- Mary catheter shows patient is not fluid overloaded. Patient is continue to get free water flushes, unable to accurately track ins and outs due to difficulties with catheter. Currently being weighed daily Patient had good response to Diamox, will give another x 1 today. Continue holding Bumex, sodium has normalized, monitor closely. Patient remains mildly hypernatremic. Continuing free water flushes. Will tend to place Fuller catheter for better urinary output measurement. -Free water flushes 100 cc/h -Avoid nephrotoxic agent -Renally dose medication -Monitor daily labs -Diamox 500 mg IV x 1 -Continue holding diuresis -Albumin 25 g IV twice daily -Concentrate tube feeds #Acute encephalopathy #Right diastolic CHF #Hx of A-fib #Acute on chronic hypoxic and hypercapnic respiratory failure #Obesity hypoventilation syndrome and obstructive sleep apnea #Community-acquired pneumonia, Enterobacter [place] #Morbid obesity #DM2 #Community-acquired pneumonia, Enterobacter cloacoe Management as per primary team Thank you for allowing us to participate in the care of this patient. Management discussed with attending Dr. Gannon. Anil Rodriguez MD PGY?1 Attending Provider Attestation/Addendum Patient seen and examined with resident physician Dr. Campos. Note reviewed, agree with findings and recommendations. 03/26/2025 Morbidly obese gentleman presented with acute hypoxic/hypercarbic respiratory failure. On ventilator. Significant anasarca noted. Patient made good urine. Currently in KENIA. Hypernatremia-on free water flushes. cr stable one dose Diamox given s/p trach. NGT feeds, free water flushes ordered Plan of care discussed with primary team.
[2025-03-26] MEDS: POTASSIUM CHLORIDE 10% 20 MEQ/15 ML UDC NG (12:18)
--- NOTE | 2025-03-26 13:21 | ESPR_ITS ---
<Statement entered by Lenora John MD - 03/29/25 07:51> The patient examined evaluated in the telemetry floor he still has tracheostomy unable to ambulate does not complain of any chest pain or shortness of remains in A-fib rate controlled well morbid obesity making it difficult for him for discharge planning hospice also discussed with the patient the treatment plan recommendation and as documented by PGY 3 agree with the treatment plan recommendation and will continue to monitor the patient for cardiac status. Documentation for date of: 03/26/25 Subjective Subjective Interval history: pt examined bedside this morning , no acute overnight event , primary team reffered him to hospice pending decision . Exam Vital Signs Temp Pulse Resp BP Pulse Ox O2 Del Method O2 Flow Rate 97.8 F 93 16 140/95 H 94 L Mechanical Ventilation 10 03/26/25 12:00 03/26/25 12:00 03/26/25 12:00 03/26/25 12:00 03/26/25 12:00 03/26/25 12:00 03/26/25 04:00 FiO2 35 03/26/25 04:00 Narrative Exam Gen: Well-developed and well-nourished morbidly obese male. HEENT: NCAT, PERRLA, EOMI, MMM, anicteric conjunctivae, tracheostomy in place. CVS: Decreased heart sounds, normal S1 and S2. RRR. No M/R/G. Resp: Decreased breath sounds B/L. No rhonchi, rales, crackles or wheezing. Abd: soft, morbidly obese, non-tender, non-distended. BS+ in all 4 quadrants. Pitting edema over bilateral flanks and sides. MSK: Good ROM in BUE & BLE. 3+ pitting edema BLE. Neuro: Limited exam due to medical condition. Objective Labs 03/26/25 05:09 03/26/25 05:09 Labs: Laboratory Results - last 24 hr 03/25/25 03/26/25 03/26/25 13:01 05:09 08:20 WBC 10.7 H RBC 3.91 L Hgb 11.1 L Hct 36.5 L MCV 93 MCH 28.4 MCHC 30.4 L RDW Std Deviation 49.9 H Plt Count 226 Neut % (Auto) 74 Lymph % (Auto) 10 [place] % (Auto) 11 Eos % (Auto) 4 Baso % (Auto) 1 Neut # (Auto) 7.9 H Lymph # (Auto) 1.0 [place] # (Auto) 1.2 H Eos # (Auto) 0.4 Baso # (Auto) 0.1 Immature Gran # (Auto) 0.08 H Absolute Nucleated RBC 0.00 Immature Gran % 1 H Nucleated RBC % 0 Puncture Site Right Radial ABG pH 7.46 H ABG pCO2 54 H ABG pO2 79 L ABG HCO3 38 H ABG O2 Saturation 97 ABG Base Excess 12 H FiO2 35 Sodium 147 H 147 H Potassium 4.2 3.9 Chloride 103 101 Carbon Dioxide 37.3 H 39.9 H Anion Gap 7 6 L BUN 53 H 57 H Creatinine 2.0 H 1.9 H Estim Creat Clear Calc 61.9 65.2 eGFR 36 L 39 L BUN/Creatinine Ratio 27 H 30 H Glucose 238 H 210 H Calculated Osmolality 314 H 314 H Calcium 8.4 8.5 Corrected Calcium 9.0 9.1 Phosphorus 3.0 2.9 Magnesium 2.0 Total Bilirubin 0.8 AST 24 ALT 13 Alkaline Phosphatase 130 H Total Protein 5.9 Albumin 3.3 L 3.2 L Globulin 2.7 Albumin/Globulin Ratio 1.2 ABG Interpretation ABG results: 02/27/25 02/28/25 03/01/25 06:55 04:57 04:39 ABG pH 7.27 L 7.37 D 7.41 ABG pCO2 57 H 48 44 ABG pO2 101 78 L D 69 L ABG HCO3 26 28 H 28 H ABG O2 Saturation 98 95 93 ABG Base Excess -2 2 3 VBG pH VBG pCO2 VBG pO2 VBG Base Excess 03/01/25 03/01/25 03/02/25 13:15 14:52 04:25 ABG pH Cancelled 7.41 7.45 ABG pCO2 Cancelled 45 42 ABG pO2 Cancelled 53 L* 66 L ABG HCO3 Cancelled 28 H 29 H ABG O2 Saturation Cancelled 85 L 92 ABG Base Excess Cancelled 3 5 H VBG pH VBG pCO2 VBG pO2 VBG Base Excess 03/03/25 03/05/25 03/05/25 04:40 16:30 16:55 ABG pH 7.45 Cancelled 7.34 L D ABG pCO2 43 Cancelled 72 H* D ABG pO2 72 L Cancelled 83 ABG HCO3 30 H Cancelled 38 H ABG O2 Saturation 94 Cancelled 95 ABG Base Excess 5 H Cancelled 9 H VBG pH VBG pCO2 VBG pO2 VBG Base Excess 03/05/25 03/06/25 03/06/25 23:36 01:48 05:22 ABG pH 7.37 7.34 L 7.52 H D ABG pCO2 67 H 74 H* 47 D ABG pO2 150 H D 88 D 160 H D ABG HCO3 38 H 40 H 38 H ABG O2 Saturation 99 H 96 100 H ABG Base Excess 10 H 11 H 13 H VBG pH VBG pCO2 VBG pO2 VBG Base Excess 03/06/25 03/07/25 03/07/25 17:10 05:00 14:03 ABG pH 7.46 H ABG pCO2 53 H ABG pO2 65 L D ABG HCO3 38 H ABG O2 Saturation 93 ABG Base Excess 12 H VBG pH 7.50 7.52 VBG pCO2 50 47 VBG pO2 70 H 61 H VBG Base Excess 13 H 14 H 03/09/25 03/09/25 03/09/25 08:17 10:25 17:29 ABG pH 7.25 L D 7.29 L 7.29 L ABG pCO2 93 H* D 85 H* 88 H* ABG pO2 81 L 57 L* D 85 D ABG HCO3 41 H 40 H 43 H ABG O2 Saturation 95 89 L 97 ABG Base Excess 10 H 10 H 12 H VBG pH VBG pCO2 VBG pO2 VBG Base Excess 03/09/25 03/10/25 03/10/25 23:24 07:17 11:25 ABG pH 7.32 L 7.28 L 7.31 L ABG pCO2 78 H* D 90 H* D 81 H* ABG pO2 69 L 47 L* D 63 L ABG HCO3 40 H 43 H 41 H ABG O2 Saturation 94 80 L 93 ABG Base Excess 11 H 12 H 11 H VBG pH VBG pCO2 VBG pO2 VBG Base Excess 03/10/25 03/11/25 03/12/25 16:56 04:19 04:42 ABG pH 7.40 7.48 H 7.43 ABG pCO2 66 H D 54 H D 59 H ABG pO2 68 L 67 L 77 L ABG HCO3 41 H 40 H 39 H ABG O2 Saturation 94 94 96 ABG Base Excess 13 H 15 H 12 H VBG pH VBG pCO2 VBG pO2 VBG Base Excess 03/13/25 03/14/25 03/15/25 04:32 04:25 04:37 ABG pH 7.47 H 7.46 H 7.41 ABG pCO2 53 H 50 H 56 H ABG pO2 60 L 70 L 69 L ABG HCO3 38 H 36 H 35 H ABG O2 Saturation 93 95 95 ABG Base Excess 13 H 10 H 9 H VBG pH VBG pCO2 VBG pO2 VBG Base Excess 03/16/25 03/16/25 03/17/25 04:54 09:53 04:35 ABG pH 7.45 7.48 H 7.47 H ABG pCO2 51 H 49 H 53 H ABG pO2 68 L 34 L* D 87 D ABG HCO3 35 H 37 H 38 H ABG O2 Saturation 95 67 L 97 ABG Base Excess 10 H 12 H 13 H VBG pH VBG pCO2 VBG pO2 VBG Base Excess 03/18/25 03/19/25 03/26/25 04:26 05:00 08:20 ABG pH 7.44 7.45 7.46 H ABG pCO2 57 H 55 H 54 H ABG pO2 107 D 73 L D 79 L ABG HCO3 38 H 38 H 38 H ABG O2 Saturation 99 H 96 97 ABG Base Excess 12 H 12 H 12 H VBG pH VBG pCO2 VBG pO2 VBG Base Excess Quality Measures Quality Measures sepsis Current suspected stage: ruled out Possible source: pulmonary Blood cultures ordered: completed in ED Antibiotic ordered: Yes Advance care planning discussed with:: patient Assessment & Plan Assessment Current Active Medications: Generic Name Dose Route Start Last Admin Trade Name Freq PRN Reason Stop Dose Admin Acetaminophen 650 mg 03/23/25 17:36 03/23/25 17:50 Acetaminophen 325 Mg Tablet PO 03/29/25 09:23 650 mg Q4HR PRN Administration fever > 100.4 or Mild Pain 1-3 Hydrocodone Bitart/Acetaminophen 1 tab 03/26/25 07:57 03/26/25 08:33 Hydrocodone/Apap 5/325 Tablet GT 03/31/25 07:56 1 tab Q4HR PRN Administration PAIN Protocol Al Hydrox/Mg Hydrox/Simethicone 30 ml 03/24/25 09:42 Mg Hyd/Al Hyd/Virgilio (Maalox Reg) Susp 30 Ml Udc NG 03/29/25 09:23 Q4HR PRN Heartburn or Upset Stomach Amiodarone HCl 200 mg 03/24/25 09:45 03/26/25 08:32 Amiodarone Hcl 200 Mg Tablet NG 03/31/25 08:59 200 mg QDAY KOURTNEY Administration Amlodipine Besylate 10 mg 03/24/25 09:45 03/26/25 08:33 Amlodipine Besylate 5 Mg Tablet NG 04/19/25 23:34 10 mg DAILY KOURTNEY Administration Bumetanide 2 mg 03/17/25 21:00 03/18/25 21:28 Bumetanide Inj 0.25 Mg/Ml Vial 4 Ml IVP 04/16/25 20:59 2 mg BID KOURTNEY Administration Cyclobenzaprine HCl 5 mg 03/26/25 08:25 Cyclobenzaprine 5 Mg Tablet PO 04/25/25 08:24 TID PRN MUSCLE SPASMS Protocol Dextrose 25 ml 03/03/25 08:20 Dextrose 50%-Water Inj 50 Ml Syringe IV 04/02/25 08:19 Q15MIN PRN BG 50-70 responsive npo pt Dextrose 50 ml 03/03/25 08:20 Dextrose 50%-Water Inj 50 Ml Syringe IV 04/02/25 08:19 Q15MIN PRN BG <50 OR BG <70 & pt unresponsive Glucagon 1 mg 03/03/25 08:20 Glucagon Inj 1 Mg Vial IM Q15MIN PRN BG <70, and no IV access Albumin Human 25 gm in 100 mls @ 100 mls/hr 03/24/25 11:15 03/26/25 08:31 Albuminar-25 Ivpb IV 03/27/25 11:14 100 mls/hr BID KOURTNEY Administration Insulin Glargine 25 unit 03/26/25 09:00 03/26/25 08:52 Insulin Glargine (Lantus) 5 Unit/0.05 Ml (Per 5 Units) SC 04/25/25 08:59 25 unit QDAY KOURTNEY Administration Insulin Human Lispro 0 unit 03/25/25 12:00 03/26/25 12:18 Insulin Lispro (Admelog) 1 Unit/0.01 Ml Unit SC 04/24/25 11:59 2 unit Q6HR KOURTNEY Administration Protocol Lansoprazole 30 mg 03/23/25 09:30 03/26/25 08:33 Lansoprazole 30 Mg Tab.[email or web address].Dr CHAPIN 04/21/25 08:59 30 mg QDAY KOURTNEY Administration Magnesium Hydroxide 30 ml 03/24/25 09:43 03/25/25 05:17 Milk Of Magnesia Susp 30 Ml Udc NG 03/29/25 09:23 30 ml QDAY PRN Administration CONSTIPATION Ondansetron HCl 4 mg 03/05/25 20:46 03/09/25 03:49 Ondansetron Inj 2 Mg/Ml Inj 2 Ml IV 04/04/25 20:45 4 mg Q6HR PRN Administration NAUSEA OR VOMITING Protocol Rivaroxaban 20 mg 03/23/25 17:30 03/25/25 17:31 Rivaroxaban 10 Mg Tablet GT 04/03/25 17:29 20 mg WSUPPER KOURTNEY Administration Plan 64-year-old male with significant past medical history of hypertension, diabetes mellitus, A-fib was admitted to the ICU on 02/27/2025 after coming in with altered mental status and shortness of breath, intubated for acute hypoxic respiratory failure and had suspected obesity hypoventilation syndrome/obstructive sleep apnea/pneumonia and acute kidney injury. He was extubated on 03/03 and downgraded then re-intubated on 03/06 due to confusion and tachypneia. He was then extubated and downgraded to the floor on 03/07. On 03/10, patient again had decreased mentation on the BiPAP so was reintubated and upgraded. Cardiology has been consulted for suspected heart failure. #Right congestive heart failure with preserved EF. #Severe BASIA/OHS. Echo on this admission showed poor quality images secondary to the patient's body habitus so was a technically limited study. Suspect chronic right heart failure in the setting of chronic obesity hypoventilation syndrome and obstructive sleep apnea. Currently appears to be more pulmonary component to respiratory failure than cardiac. Requiring ventilation support. -Echo 02/27/25: IVC appears to be dilated and also estimated RVSP also appears to be at least moderately elevated at 55 mmHg. 03/14/25: Will hold dirutics for now , he was given IV fluids yesterday. 03/15/25 : [place] catheter was placed by ICU team which showed PA pressure of more than 30s and wedge pressure was also high . started him on bumex drip . will continue the albumin . he is getting his peg tube today 03/16/25: ICU team tried another [place] catheter today which showed RA pressure of 25, PA pressure of 38, PCWP of 23. Plan is to continue Bumex for him. Cr stable at 2.5 03/17/2025: Net fluid balance -3350 cc. ICU team held Bumex due to significant electrolyte abnormalities, potassium 2.7. Once repleted Bumex drip will be resumed. Continue current management and monitor patient. 03/18/2025: net fluid balance -1650 , he received 1 dose of diamox yesterday. will continue to diures, he is off ventillor in blowby with PRN ventillator when he gets tired. 03/19/2025: no acute overnight event.Balance of -950 . ICU team put a swan catheter which showed he is adequately diressed for now, so bumex on hold for now. pending pegtube placement, its been difficult to do the procedure consedering his Rouxy history. Plan: 03/20/2025: Will hold dirutics for now, he was given IV LR and FWF via NG for hypernatremia. 03/21/2025: no acute overnight event. free water flushes increase today for hypernatremia . Xarelto resumed . bumex on hold ,Dr Doty recommending jejunostomy placement. 03/22/2025: Patient has tracheostomy inplace and is unable to communicate much Telemetry reviewed and rest of the vital signs including the heart rate appears to be stable. Labs showed that the patient still continues to have hyponatremia at 150 and also has elevated creatinine at 2.6 and a BUN of 66. Patient is on renal water flushes for the hyponatremia and creatinine continues to improve and baseline creatinine appears to be around 2.0 Recommend to continue with free water flushes for now. Patient is morbidly obese with multiple comorbidities as mentioned below and overall prognosis appears to be poor Primary team to discuss with the family regarding goals of care. 03/23/2025 Continued on free water flushes, sodium 150 > 149. Renal function showing minor improvement with BUN 63, CR 2.4, EGFR 29. Poor urine output. 2/3+ LE edema noted on exam again. Vitals relatively normal, BP 121/92, HR 98 although spikes of HR 120s noted on tele, continued on blow-by and satting well. ? Continue with free-water flushes, monitor renal function closely ? Continue AMIODARONE 200 mg daily ? Continue AMLODIPINE 10 mg daily ? Continue XARELTO 20 mg ? Okay holding BUMEX 2 mg IV BID as per nephro team, may need HD eventually if renally function not improving, kadi givens persisting edema. 03/25/2025: no acute overnight event, he was given diamox by nephrology speech therapist was at bedside , kidney function improving . Na is normal today at 143 . Bumex still on hold. .Continue amiodarone 200 mg daily, Amlodipine 10 mg daily, Continue XARELTO 20 mg 03/26/2025: no acute overnight event , primary team reffered him to hospice pending decision . Bumex still on hold. .Continue amiodarone 200 mg daily, Amlodipine 10 mg daily, Continue XARELTO 20 mg #Atrial fibrillation, rate controlled. Patient notes positive history of afib. He had previously been on metoprolol succinate 100 mg BID. Currently appears rate-controlled in the 100s. CHADS-VASc score 4 Plan: -Resume Xarelto. -Continue amiodarone 200 mg qday. -Keep potassium >4.0 and mag >2.0. Rest of conditions to continue current management per primary team: #Acute hypoxic respiratory failure s/p tracheostomy. #Morbid obesity. #Community acquired pneumonia. #Elevated LFTs, resolved. #Hyperbilirubinemia, resolved. #History of type 2 diabetes. #Lactic acidosis, resolved. #KENIA on CKD. #Hypernatremia. Discussed the patient with my attending Dr Alvaro Newell MD, PGY-3
--- NOTE | 2025-03-26 15:02 | ESPR_ITS ---
Documentation for date of: 03/26/25 Subjective Subjective Interval history: Patient examined at bedside today. No acute overnight events. Over the past 24 hours, patient has gotten 6 L intake. Spoke with patient in regards to options moving forward. He would like to speak with hospice. Nephrology is following. I spoke with registered dietitian to adjust his feeds. He is refusing treatment for bedsore at this time. No other complaints at this time Exam Vital Signs Temp Pulse Resp BP Pulse Ox O2 Del Method O2 Flow Rate 97.8 F 93 16 140/95 H 94 L Mechanical Ventilation 10 03/26/25 12:00 03/26/25 12:00 03/26/25 12:00 03/26/25 12:00 03/26/25 12:00 03/26/25 12:00 03/26/25 04:00 FiO2 35 03/26/25 04:00 Narrative Exam General: AAOx3, in mild distress, severely morbidly obese HEENT: Dry mucous membranes, conjunctiva clear, EOMI, PERRLA, trachestomy Cardiovascular: Ejection systolic murmur, radial pulses +2 bilat, irregularly irregular, Pulmonary: FiO2 40, Rate 10, PEEP 8, TV 420, on blow-by GI: No tenderness to light or deep palpitation, no guarding, rigidity, rebound tenderness or distension Extremities: +2 Pitting edema in lower extremities bilaterally, dorsalis pedis pulses +2 bilaterally Back: Bedsore present Neuro: AAOx3, no focal motor or sensory deficits in the UE or LE bilat Objective Labs 03/27/25 05:29 03/27/25 05:29 Labs: Laboratory Results - last 24 hr 03/26/25 03/26/25 05:09 08:20 WBC 10.7 H RBC 3.91 L Hgb 11.1 L Hct 36.5 L MCV 93 MCH 28.4 MCHC 30.4 L RDW Std Deviation 49.9 H Plt Count 226 Neut % (Auto) 74 Lymph % (Auto) 10 [place] % (Auto) 11 Eos % (Auto) 4 Baso % (Auto) 1 Neut # (Auto) 7.9 H Lymph # (Auto) 1.0 [place] # (Auto) 1.2 H Eos # (Auto) 0.4 Baso # (Auto) 0.1 Immature Gran # (Auto) 0.08 H Absolute Nucleated RBC 0.00 Immature Gran % 1 H Nucleated RBC % 0 Puncture Site Right Radial ABG pH 7.46 H ABG pCO2 54 H ABG pO2 79 L ABG HCO3 38 H ABG O2 Saturation 97 ABG Base Excess 12 H FiO2 35 Sodium 147 H Potassium 3.9 Chloride 101 Carbon Dioxide 39.9 H Anion Gap 6 L BUN 57 H Creatinine 1.9 H Estim Creat Clear Calc 65.2 eGFR 39 L BUN/Creatinine Ratio 30 H Glucose 210 H Calculated Osmolality 314 H Calcium 8.5 Corrected Calcium 9.1 Phosphorus 2.9 Magnesium 2.0 Total Bilirubin 0.8 AST 24 ALT 13 Alkaline Phosphatase 130 H Total Protein 5.9 Albumin 3.2 L Globulin 2.7 Albumin/Globulin Ratio 1.2 ABG Interpretation ABG results: 02/27/25 02/28/25 03/01/25 06:55 04:57 04:39 ABG pH 7.27 L 7.37 D 7.41 ABG pCO2 57 H 48 44 ABG pO2 101 78 L D 69 L ABG HCO3 26 28 H 28 H ABG O2 Saturation 98 95 93 ABG Base Excess -2 2 3 VBG pH VBG pCO2 VBG pO2 VBG Base Excess 03/01/25 03/01/25 03/02/25 13:15 14:52 04:25 ABG pH Cancelled 7.41 7.45 ABG pCO2 Cancelled 45 42 ABG pO2 Cancelled 53 L* 66 L ABG HCO3 Cancelled 28 H 29 H ABG O2 Saturation Cancelled 85 L 92 ABG Base Excess Cancelled 3 5 H VBG pH VBG pCO2 VBG pO2 VBG Base Excess 03/03/25 03/05/25 03/05/25 04:40 16:30 16:55 ABG pH 7.45 Cancelled 7.34 L D ABG pCO2 43 Cancelled 72 H* D ABG pO2 72 L Cancelled 83 ABG HCO3 30 H Cancelled 38 H ABG O2 Saturation 94 Cancelled 95 ABG Base Excess 5 H Cancelled 9 H VBG pH VBG pCO2 VBG pO2 VBG Base Excess 03/05/25 03/06/25 03/06/25 23:36 01:48 05:22 ABG pH 7.37 7.34 L 7.52 H D ABG pCO2 67 H 74 H* 47 D ABG pO2 150 H D 88 D 160 H D ABG HCO3 38 H 40 H 38 H ABG O2 Saturation 99 H 96 100 H ABG Base Excess 10 H 11 H 13 H VBG pH VBG pCO2 VBG pO2 VBG Base Excess 03/06/25 03/07/25 03/07/25 17:10 05:00 14:03 ABG pH 7.46 H ABG pCO2 53 H ABG pO2 65 L D ABG HCO3 38 H ABG O2 Saturation 93 ABG Base Excess 12 H VBG pH 7.50 7.52 VBG pCO2 50 47 VBG pO2 70 H 61 H VBG Base Excess 13 H 14 H 03/09/25 03/09/25 03/09/25 08:17 10:25 17:29 ABG pH 7.25 L D 7.29 L 7.29 L ABG pCO2 93 H* D 85 H* 88 H* ABG pO2 81 L 57 L* D 85 D ABG HCO3 41 H 40 H 43 H ABG O2 Saturation 95 89 L 97 ABG Base Excess 10 H 10 H 12 H VBG pH VBG pCO2 VBG pO2 VBG Base Excess 03/09/25 03/10/25 03/10/25 23:24 07:17 11:25 ABG pH 7.32 L 7.28 L 7.31 L ABG pCO2 78 H* D 90 H* D 81 H* ABG pO2 69 L 47 L* D 63 L ABG HCO3 40 H 43 H 41 H ABG O2 Saturation 94 80 L 93 ABG Base Excess 11 H 12 H 11 H VBG pH VBG pCO2 VBG pO2 VBG Base Excess 03/10/25 03/11/25 03/12/25 16:56 04:19 04:42 ABG pH 7.40 7.48 H 7.43 ABG pCO2 66 H D 54 H D 59 H ABG pO2 68 L 67 L 77 L ABG HCO3 41 H 40 H 39 H ABG O2 Saturation 94 94 96 ABG Base Excess 13 H 15 H 12 H VBG pH VBG pCO2 VBG pO2 VBG Base Excess 03/13/25 03/14/25 03/15/25 04:32 04:25 04:37 ABG pH 7.47 H 7.46 H 7.41 ABG pCO2 53 H 50 H 56 H ABG pO2 60 L 70 L 69 L ABG HCO3 38 H 36 H 35 H ABG O2 Saturation 93 95 95 ABG Base Excess 13 H 10 H 9 H VBG pH VBG pCO2 VBG pO2 VBG Base Excess 03/16/25 03/16/25 03/17/25 04:54 09:53 04:35 ABG pH 7.45 7.48 H 7.47 H ABG pCO2 51 H 49 H 53 H ABG pO2 68 L 34 L* D 87 D ABG HCO3 35 H 37 H 38 H ABG O2 Saturation 95 67 L 97 ABG Base Excess 10 H 12 H 13 H VBG pH VBG pCO2 VBG pO2 VBG Base Excess 03/18/25 03/19/25 03/26/25 04:26 05:00 08:20 ABG pH 7.44 7.45 7.46 H ABG pCO2 57 H 55 H 54 H ABG pO2 107 D 73 L D 79 L ABG HCO3 38 H 38 H 38 H ABG O2 Saturation 99 H 96 97 ABG Base Excess 12 H 12 H 12 H VBG pH VBG pCO2 VBG pO2 VBG Base Excess Quality Measures Quality Measures sepsis Current suspected stage: ruled out Possible source: pulmonary Blood cultures ordered: completed in ED Antibiotic ordered: No Advance care planning discussed with:: patient Assessment & Plan Assessment Current Active Medications: Generic Name Dose Route Start Last Admin Trade Name Freq PRN Reason Stop Dose Admin Acetaminophen 650 mg 03/23/25 17:36 03/23/25 17:50 Acetaminophen 325 Mg Tablet PO 03/29/25 09:23 650 mg Q4HR PRN Administration fever > 100.4 or Mild Pain 1-3 Hydrocodone Bitart/Acetaminophen 1 tab 03/26/25 07:57 03/26/25 08:33 Hydrocodone/Apap 5/325 Tablet GT 03/31/25 07:56 1 tab Q4HR PRN Administration PAIN Protocol Al Hydrox/Mg Hydrox/Simethicone 30 ml 03/24/25 09:42 Mg Hyd/Al Hyd/Virgilio (Maalox Reg) Susp 30 Ml Udc NG 03/29/25 09:23 Q4HR PRN Heartburn or Upset Stomach Amiodarone HCl 200 mg 03/24/25 09:45 03/26/25 08:32 Amiodarone Hcl 200 Mg Tablet NG 03/31/25 08:59 200 mg QDAY KOURTNEY Administration Amlodipine Besylate 10 mg 03/24/25 09:45 03/26/25 08:33 Amlodipine Besylate 5 Mg Tablet NG 04/19/25 23:34 10 mg DAILY KOURTNEY Administration Bumetanide 2 mg 03/17/25 21:00 03/18/25 21:28 Bumetanide Inj 0.25 Mg/Ml Vial 4 Ml IVP 04/16/25 20:59 2 mg BID KOURTNEY Administration Cyclobenzaprine HCl 5 mg 03/26/25 08:25 Cyclobenzaprine 5 Mg Tablet PO 04/25/25 08:24 TID PRN MUSCLE SPASMS Protocol Dextrose 25 ml 03/03/25 08:20 Dextrose 50%-Water Inj 50 Ml Syringe IV 04/02/25 08:19 Q15MIN PRN BG 50-70 responsive npo pt Dextrose 50 ml 03/03/25 08:20 Dextrose 50%-Water Inj 50 Ml Syringe IV 04/02/25 08:19 Q15MIN PRN BG <50 OR BG <70 & pt unresponsive Glucagon 1 mg 03/03/25 08:20 Glucagon Inj 1 Mg Vial IM Q15MIN PRN BG <70, and no IV access Albumin Human 25 gm in 100 mls @ 100 mls/hr 03/24/25 11:15 03/26/25 08:31 Albuminar-25 Ivpb IV 03/27/25 11:14 100 mls/hr BID KOURTNEY Administration Insulin Glargine 25 unit 03/26/25 09:00 03/26/25 08:52 Insulin Glargine (Lantus) 5 Unit/0.05 Ml (Per 5 Units) SC 04/25/25 08:59 25 unit QDAY KOURTNEY Administration Insulin Human Lispro 0 unit 03/25/25 12:00 03/26/25 12:18 Insulin Lispro (Admelog) 1 Unit/0.01 Ml Unit SC 04/24/25 11:59 2 unit Q6HR KOURTNEY Administration Protocol Lansoprazole 30 mg 03/23/25 09:30 03/26/25 08:33 Lansoprazole 30 Mg Tab.Rap.Dr CHAPIN 04/21/25 08:59 30 mg QDAY KOURTNEY Administration Magnesium Hydroxide 30 ml 03/24/25 09:43 03/25/25 05:17 Milk Of Magnesia Susp 30 Ml Udc NG 03/29/25 09:23 30 ml QDAY PRN Administration CONSTIPATION Ondansetron HCl 4 mg 03/05/25 20:46 03/09/25 03:49 Ondansetron Inj 2 Mg/Ml Inj 2 Ml IV 04/04/25 20:45 4 mg Q6HR PRN Administration NAUSEA OR VOMITING Protocol Rivaroxaban 20 mg 03/23/25 17:30 03/25/25 17:31 Rivaroxaban 10 Mg Tablet GT 04/03/25 17:29 20 mg WSUPPER KOURTNEY Administration Plan Assessment 64-year-old male with past medical history of DM2, hypertension, A-fib, and Jehova's witness was admitted to the ICU on 02/27/2025 for shock and acute hypoxic respiratory failure. I have sent over hospice care for patient. If patient refuses hospice care, we will transfer patient to higher level of care for IR jejunostomy. 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 NG placement lost, unable to replace. DR. Doty consulted and will re-insert NG tube. General surgery, IR unable to do J- tube given history of daniel-en-y gastric bypass. Patient would benefit from TPN/PPN. Resumed tube feeds via NG tube Glucerna IR unable to put in PICC line today for TPN Continues to be on blow-by. Did not tolerate PMS valve, as per speech therapist patient will need time to adjust further tracheostomy before the trial of PNS. Will reevaluate if the patient tolerated the PMS we will do another session of speech evaluation, the patient unable to perform the speech evaluation we will transfer the patient to higher level of care for placement of PEG tube versus duodenojejunostomy. Patient will work with speech therapy to see if patient's dysphagia improves Patient will likely fail, and also will likely require tracheostomy due to respiratory failure Patient will need IR jejunostomy due to history of Daniel-en-Y We will concentrate patient's feed due to patient having too much intake Plan: - RD to change patient's feed to 2Cal RN via NG tube, 150 cc water flushes #Right diastolic CHF, improved Echo could not visualize all chambers with limited ability to determine patient's ejection fraction. Given body habitus, history of obstructive sleep apnea and obesity hypoventilation syndrome, right heart failure suspected. Lower pedal edema likely combination of heart failure and third spacing. Kimani Hernandez 03/15 showed elevated RAP 25 PAP 38 PCWP 23. [place] Mary 03/16/2025 PCWP 9 (=17-8) [place] 03/19/2025: RAP 8, PAP 27, PCWP 7 Dry weight: 197.9 Dry BNP 135 High cardiac output Continuing water flushes at this time at 100 cc an hour, will have to do body weights to assess for urine output as patient does not have Fuller or condom catheter at this time His weight today is 201 kg Consult with nephro and cardio if we need diuresis Plan: ? Cardiology consulted, appreciate recs ? Continuing to hold Bumex - Daily weights - Strict I&O #Hx of A-fib [id number] score of 3 points indicating 3.2% risk of stroke per year HAS-BLED: 0 Plan: - Continue PO amiodarone 200 mg qday with small sips of water ? Potassium and magnesium above 4 and 2 respectively - Resumed Xarelto ? Telemetry #Acute on chronic hypoxic and hypercapnic respiratory failure #Obesity hypoventilation syndrome and obstructive sleep apnea #Community-acquired pneumonia, Enterobacter [place] #Tracheostomy Patient was intubated on 02/27/2025, extubated 03/03/2025. Reintubated on 03/06/2025 and extubated 03/07/2025. Reintubated 03/10/2025 for hypercapnic encephalopathy Tracheostomy tube placed 03/15 [place] 03/19/2025 PEEP 8, RR 10, FiO2 40, TV 420 Blow-by during the day, ventilation at night will continue to feed patient, with hopes of mentation improving and possible removal of tracheostomy Will see if patient tolerates PMV valve today Plan: ?Ventilatory support at bedtime, blow-by during the day. - Continue vent, wean as tolerated #KENIA improving #Hypokalemia #Hypernatremia #Metabolic alkalosis Pre-renal from cardiorenal and edema in the setting of third spacing, low albumin. Bumex drip discontinued. Right heart cath shows CVP 8, shows appropriate diuresis, however patient will need some fluid at this time Unable to assess urine output as the penile area is retracted, there is also a wound from the pure wick during his stay, the patient is immobile. Will continue to monitor his intake, at this time his on water flushes 100 mL/h in addition to his 65 mL/h tube feed. Will decrease water flushes as seen with we reached to goal of sodium level. Creatinine 1.9 today, may consider diuresis tomorrow Plan: - Nephrology following, Dr. Gannon, appreciate recommendations ? Water flushes 150 cc/hour ? Diamox x 1 #Hypernatremia, Hyper-osmolar Sodium 147 today Plan: ? Free water flushes 150 cc an hour ? Trend with CMP #Bedsore Plan: ? Monitor as patient is refusing care at this time ? Monitor for signs of infection ? Wound care #Morbid obesity #DM2 A1C 7.6 on 03/05/2025 Patient has a BMI of 79.5 Plan: - ISS scale 2 - Hypoglycemia protocol ordered ? 25 units of Lantus #Normocytic Anemia likely secondary to anemia of chronic disease given normal MCV. No acute intervention, continue to monitor #Leukocytosis, resolved #Enterobacter cloacoe pneumonia, resolved. Finished Rocephin (03/06/2025) - Cefepime 03/18/2025, completed #Acute encephalopathy, resolved #Health Maintenance Disposition: Telemetry DVT prophylaxis: Heparin GI prophylaxis: Protonix Diet: NG tube feeds with 2Cal with 150 cc water flushes CODE STATUS: Full Patient seen and care discussed with my attending physician, Dr. Samina Shields, PGY-1 Attending Provider Attestation/Addendum I have examined the patient, reviewed labs and imaging findings, discussed the case with the resident(s), and reviewed entered orders. I agree with the plan of care as outlined in this note, with these additional summaries/recommendations: Patient seen at bedside. No acute overnight events. Patient is morbidly obese & status post tracheostomy. I was unable to understand any of patient's speech. Patient was provided piece of paper and pencil for communication. Patient has developed a decubitus ulcer and wound nurse informed us that patient was refusing treatment. I discussed with patient that if he does not want further treatments that his goals aligns more with hospice care. I discussed with patient if he would like us to make a hospice referral to learn more about hospice & patient wrote? yes?. Hospice referral made. If patient does not decide to pursue hospice then we will initiate transfer to higher level of care for PEG tube given patient's altered anatomy. Continue NG tube and tube feeds. Continue mechanical ventilation at night and blow-by during the day. Continue free water flushes and tube feeds. Mild hypernatremia present and we will continue to monitor. Acute kidney injury improving. Repeat chemistry and hematology panel in AM. Dr. Samina MD
[2025-03-26] MEDS: RIVAROXABAN 10 MG TABLET 20 MG GT (18:22)
--- NOTE | 2025-03-26 21:33 | ESPR_ITS ---
Documentation for date of: 03/26/25 Subjective Subjective Interval history: Patient evaluated Case discussed with the internal medicine team Patient on enteral feeding via the NGT only way to feed him is not a gastrostomy tube because of the Diego and Y gastrojejunostomy needs to do jejunostomy by IR Exam Vital Signs Temp Pulse Resp BP Pulse Ox O2 Del Method O2 Flow Rate 97.4 F 111 H 16 139/86 H 97 Mechanical Ventilation 9 03/26/25 20:00 03/26/25 20:00 03/26/25 20:00 03/26/25 20:00 03/26/25 20:00 03/26/25 20:00 03/26/25 19:09 FiO2 40 03/26/25 19:09 Objective Labs 03/26/25 05:09 03/26/25 05:09 Labs: Laboratory Results - last 24 hr 03/26/25 03/26/25 05:09 08:20 WBC 10.7 H RBC 3.91 L Hgb 11.1 L Hct 36.5 L MCV 93 MCH 28.4 MCHC 30.4 L RDW Std Deviation 49.9 H Plt Count 226 Neut % (Auto) 74 Lymph % (Auto) 10 [place] % (Auto) 11 Eos % (Auto) 4 Baso % (Auto) 1 Neut # (Auto) 7.9 H Lymph # (Auto) 1.0 [place] # (Auto) 1.2 H Eos # (Auto) 0.4 Baso # (Auto) 0.1 Immature Gran # (Auto) 0.08 H Absolute Nucleated RBC 0.00 Immature Gran % 1 H Nucleated RBC % 0 Puncture Site Right Radial ABG pH 7.46 H ABG pCO2 54 H ABG pO2 79 L ABG HCO3 38 H ABG O2 Saturation 97 ABG Base Excess 12 H FiO2 35 Sodium 147 H Potassium 3.9 Chloride 101 Carbon Dioxide 39.9 H Anion Gap 6 L BUN 57 H Creatinine 1.9 H Estim Creat Clear Calc 65.2 eGFR 39 L BUN/Creatinine Ratio 30 H Glucose 210 H Calculated Osmolality 314 H Calcium 8.5 Corrected Calcium 9.1 Phosphorus 2.9 Magnesium 2.0 Total Bilirubin 0.8 AST 24 ALT 13 Alkaline Phosphatase 130 H Total Protein 5.9 Albumin 3.2 L Globulin 2.7 Albumin/Globulin Ratio 1.2 Impressions Impression: Failure to thrive Status post jejunostomy Recommend IR to do jejunostomy at a tertiary center ABG Interpretation ABG results: 02/27/25 02/28/25 03/01/25 06:55 04:57 04:39 ABG pH 7.27 L 7.37 D 7.41 ABG pCO2 57 H 48 44 ABG pO2 101 78 L D 69 L ABG HCO3 26 28 H 28 H ABG O2 Saturation 98 95 93 ABG Base Excess -2 2 3 VBG pH VBG pCO2 VBG pO2 VBG Base Excess 03/01/25 03/01/25 03/02/25 13:15 14:52 04:25 ABG pH Cancelled 7.41 7.45 ABG pCO2 Cancelled 45 42 ABG pO2 Cancelled 53 L* 66 L ABG HCO3 Cancelled 28 H 29 H ABG O2 Saturation Cancelled 85 L 92 ABG Base Excess Cancelled 3 5 H VBG pH VBG pCO2 VBG pO2 VBG Base Excess 03/03/25 03/05/25 03/05/25 04:40 16:30 16:55 ABG pH 7.45 Cancelled 7.34 L D ABG pCO2 43 Cancelled 72 H* D ABG pO2 72 L Cancelled 83 ABG HCO3 30 H Cancelled 38 H ABG O2 Saturation 94 Cancelled 95 ABG Base Excess 5 H Cancelled 9 H VBG pH VBG pCO2 VBG pO2 VBG Base Excess 03/05/25 03/06/25 03/06/25 23:36 01:48 05:22 ABG pH 7.37 7.34 L 7.52 H D ABG pCO2 67 H 74 H* 47 D ABG pO2 150 H D 88 D 160 H D ABG HCO3 38 H 40 H 38 H ABG O2 Saturation 99 H 96 100 H ABG Base Excess 10 H 11 H 13 H VBG pH VBG pCO2 VBG pO2 VBG Base Excess 03/06/25 03/07/25 03/07/25 17:10 05:00 14:03 ABG pH 7.46 H ABG pCO2 53 H ABG pO2 65 L D ABG HCO3 38 H ABG O2 Saturation 93 ABG Base Excess 12 H VBG pH 7.50 7.52 VBG pCO2 50 47 VBG pO2 70 H 61 H VBG Base Excess 13 H 14 H 03/09/25 03/09/25 03/09/25 08:17 10:25 17:29 ABG pH 7.25 L D 7.29 L 7.29 L ABG pCO2 93 H* D 85 H* 88 H* ABG pO2 81 L 57 L* D 85 D ABG HCO3 41 H 40 H 43 H ABG O2 Saturation 95 89 L 97 ABG Base Excess 10 H 10 H 12 H VBG pH VBG pCO2 VBG pO2 VBG Base Excess 03/09/25 03/10/25 03/10/25 23:24 07:17 11:25 ABG pH 7.32 L 7.28 L 7.31 L ABG pCO2 78 H* D 90 H* D 81 H* ABG pO2 69 L 47 L* D 63 L ABG HCO3 40 H 43 H 41 H ABG O2 Saturation 94 80 L 93 ABG Base Excess 11 H 12 H 11 H VBG pH VBG pCO2 VBG pO2 VBG Base Excess 03/10/25 03/11/25 03/12/25 16:56 04:19 04:42 ABG pH 7.40 7.48 H 7.43 ABG pCO2 66 H D 54 H D 59 H ABG pO2 68 L 67 L 77 L ABG HCO3 41 H 40 H 39 H ABG O2 Saturation 94 94 96 ABG Base Excess 13 H 15 H 12 H VBG pH VBG pCO2 VBG pO2 VBG Base Excess 03/13/25 03/14/25 03/15/25 04:32 04:25 04:37 ABG pH 7.47 H 7.46 H 7.41 ABG pCO2 53 H 50 H 56 H ABG pO2 60 L 70 L 69 L ABG HCO3 38 H 36 H 35 H ABG O2 Saturation 93 95 95 ABG Base Excess 13 H 10 H 9 H VBG pH VBG pCO2 VBG pO2 VBG Base Excess 03/16/25 03/16/25 03/17/25 04:54 09:53 04:35 ABG pH 7.45 7.48 H 7.47 H ABG pCO2 51 H 49 H 53 H ABG pO2 68 L 34 L* D 87 D ABG HCO3 35 H 37 H 38 H ABG O2 Saturation 95 67 L 97 ABG Base Excess 10 H 12 H 13 H VBG pH VBG pCO2 VBG pO2 VBG Base Excess 03/18/25 03/19/25 03/26/25 04:26 05:00 08:20 ABG pH 7.44 7.45 7.46 H ABG pCO2 57 H 55 H 54 H ABG pO2 107 D 73 L D 79 L ABG HCO3 38 H 38 H 38 H ABG O2 Saturation 99 H 96 97 ABG Base Excess 12 H 12 H 12 H VBG pH VBG pCO2 VBG pO2 VBG Base Excess Assessment & Plan A&P Narrative 64-year-old male with significant past medical history of hypertension, diabetes mellitus, A-fib was admitted to the ICU on 02/27/2025 after coming in with altered mental status and shortness of breath, intubated for acute hypoxic respiratory failure and had suspected obesity hypoventilation syndrome/obstructive sleep apnea/pneumonia and acute kidney injury. He was extubated on 03/03 and downgraded then re-intubated on 03/06 due to confusion and tachypneia. He was then extubated and downgraded to the floor on 03/07. On 03/10, patient again had decreased mentation on the BiPAP so was reintubated and upgraded. Cardiology has been consulted for suspected heart failure. #Right congestive heart failure with preserved EF. #Severe BASIA/OHS. #Hypernatremia. Echo on this admission showed poor quality images secondary to the patient's body habitus so was a technically limited study. Suspect chronic right heart failure in the setting of chronic obesity hypoventilation syndrome and obstructive sleep apnea. Currently appears to be more pulmonary component to respiratory failure than cardiac. Requiring ventilation support. -Echo 02/27/25: IVC appears to be dilated and also estimated RVSP also appears to be at least moderately elevated at 55 mmHg. 03/14/25: Will hold dirutics for now , he was given IV fluids yesterday. 03/15/25 : [place] catheter was placed by ICU team which showed PA pressure of more than 30s and wedge pressure was also high . started him on bumex drip . will continue the albumin . he is getting his peg tube today 03/16/25: ICU team tried another [place] catheter today which showed RA pressure of 25, PA pressure of 38, PCWP of 23. Plan is to continue Bumex for him. Cr stable at 2.5 03/17/2025: Net fluid balance -3350 cc. ICU team held Bumex due to significant electrolyte abnormalities, potassium 2.7. Once repleted Bumex drip will be resumed. Continue current management and monitor patient. 03/18/2025: net fluid balance -1650 , he received 1 dose of diamox yesterday. will continue to diures, he is off ventillor in blowby with PRN ventillator when he gets tired. 03/19/2025: no acute overnight event.Balance of -950 . ICU team put a swan catheter which showed he is adequately diressed for now, so bumex on hold for now. pending pegtube placement, its been difficult to do the procedure consedering his Rouxy history. Plan: 03/20/2025: Will hold dirutics for now, he was given IV LR and FWF via NG for hypernatremia. 03/21/2025: no acute overnight event. free water flushes increase today for hypernatremia . Xarelto resumed . bumex on hold ,Dr Doty recommending jejunostomy placement. #Atrial fibrillation, rate controlled. Patient notes positive history of afib. He had previously been on metoprolol succinate 100 mg BID. Currently appears rate-controlled in the 100s. CHADS-VASc score 4 Plan: - Metoprolol on hold in setting of right heart failure . -Resume Xarelto. -Continue amiodarone 200 mg qday. -Keep potassium >4.0 and mag >2.0. Rest of conditions to continue current management per primary team: #Acute hypoxic respiratory failure s/p tracheostomy. #Morbid obesity. #Community acquired pneumonia. #Elevated LFTs, resolved. #Hyperbilirubinemia, resolved. #History of type 2 diabetes. #Lactic acidosis, resolved. #KENIA on CKD. 03/22/2025: Patient has tracheostomy inplace and is unable to communicate much Telemetry reviewed and rest of the vital signs including the heart rate appears to be stable. Labs showed that the patient still continues to have hyponatremia at 150 and also has elevated creatinine at 2.6 and a BUN of 66. Patient is on renal water flushes for the hyponatremia and creatinine continues to improve and baseline creatinine appears to be around 2.0 Recommend to continue with free water flushes for now. Patient is morbidly obese with multiple comorbidities as mentioned below and overall prognosis appears to be poor Primary team to discuss with the family regarding goals of care. Management of rest of the medical conditions as per primary team and other consultants. Thank you for the consult and allowing me to participate in the care of the patient. Cardiology will continue to follow. Kobe Barahona M.D. Interventional Cardiology Time Spent With Patient Time: Total time spent is greater than 50% in coordination of care (as documented) at patient's floor/unit and/or counseling patient:
[2025-03-27] VITALS (11 sets, daily range): BP systolic 109–133; BP diastolic 80–99; PULSE 56–113; RESP 18–26; TEMP 36–36.3; O2SAT 93–99; BMI 69.5
[2025-03-27] MEDS: INSULIN LISPRO (AdmeLOG) 1 UNIT/0.01 ML UNIT SC ×5 (00:01→23:53)
[2025-03-27 05:55] LABS: Basophils # (Auto) 0.1 Thou/mm3 (0.0-0.2); Basophils % (Auto) 1 % (0-2.5); Eosinophils # (Auto) 0.4 Thou/mm3 (0.0-0.5); Eosinophils % (Auto) 4 % (0-10); Hematocrit 37.6 % (41.0-53.0); Hemoglobin 11.2 g/dL (13.5-16.0); Immature Granulocytes % (Auto) 1 % (0-0); Immature Granulocytes Auto 0.08 Thou/mm3 (0.00-0.00); Lymphocytes # (Auto) 0.9 Thou/mm3 (1.0-4.8); Lymphocytes % (Auto) 8 % (10-50); Mean Corpuscular HGB Conc 29.8 g/dl (31.0-37.0); Mean Corpuscular Hemoglobin 27.9 pg (25.0-35.0); Mean Corpuscular Volume 94 fL (80-100); Monocytes # (Auto) 1.5 Thou/mm3 (0.0-0.8); Monocytes % (Auto) 13 % (0-12); Neutrophils # (Auto) 8.5 Thou/mm3 (1.8-7.7); Neutrophils % (Auto) 74 % (37-80); Nucleated Red Blood Cell % 0 /100 WBC (0); Platelet Count 228 Thou/mm3 (140-440); RDW Standard Deviation 50.4 fL (35.1-43.9); Red Blood Count 4.01 Miln/mm3 (4.50-5.90); White Blood Count 11.5 Thou/mm3 (3.8-10.6)
[2025-03-27 06:31] LABS: Alanine Aminotransferase 13 U/L (10-49); Albumin, Serum 3.2 gm/dL (3.4-4.8); Albumin/Globulin Ratio 1.2 (1.2-2.2); Alkaline Phosphatase 120 U/L (46-116); Anion Gap 6 (7-16); Aspartate Amino Transferase 22 U/L (0-34); BUN/Creatinine Ratio 28 Ratio (12-20); Bilirubin,Total 0.8 mg/dL (0.3-1.2); Blood Urea Nitrogen 50 mg/dL (9-23); Calcium 8.5 mg/dL (8.3-10.6); Calcium (Corrected) 9.1 mg/dL (8.5-10.1); Carbon Dioxide 36.7 mMol/L (20.0-31.0); Chloride 104 mMol/L (98-107); Creatinine (Component) 1.8 mg/dL (0.6-1.3); Estimated Creatinine Clearance 68.8 mL/min (>60); Globulin 2.6 gm/dL (2.3-3.5); Glucose 226 mg/dL (74-106); Osmolality,Calculated 312 (275-295); Phosphorous 3.3 mg/dL (2.4-5.1); Potassium 4.3 mMol/L (3.4-5.1); Sodium 147 mMol/L (136-145); Total Protein 5.8 gm/dL (5.7-8.2); eGFR 41 See Note
--- NOTE | 2025-03-27 09:11 | ESPR_ITS ---
Documentation for date of: 03/27/25 Subjective Subjective Interval history: Mr. Ortega is a 64-year-old male with past medical history of DM2, hypertension, and A-fib Morbid obesity by BMIwas admitted to the ICU on 02/27/2025 after coming to the ED with complaints of altered mental status and shortness of breath. Patient was intubated in the ED therefore most of the history was taken from chart review and from the parents who are at bedside. EMS found the patient on the floor and he was saturating in the 70s even on high flow nasal cannula. Given his hypoxia patient was intubated in the ED. Patient spiked a fever while in the ED and he became hypotensive unresponsive to IV fluids therefore he was placed on vasopressors. During course of hospitalization patient had decreasing kidney function, patient notably edematous and has vascular congestion on x-ray, therefore was treated with Bumex. Despite diuresis therapy, patient kidney function continued to worsen, diuresis positive patient given free water flushes. Patient has had notably low albumin, ICU team recently started patient on albumin but not at the same time as diuretics. Nephrology was consulted due to worsening kidney function. Tracheostomy placed yesterday. Labs today show WBC 12.5, hemoglobin 12.1, platelets 346. Sodium 149, potassium 3.6, chloride 104, bicarb 33.5. BUN 76, creatinine 2.7, EGFR 25. Hemoglobin A1c 7.6%. 03/20/2025: Patient seen and examined in ICU, patient physically remains in ICU, downgraded to telemetry. Patient has not been able to get feeding for the last 3 days, had NG tube placed was started on tube feeds earlier today. Patient sodium of 153 this morning, free water deficit 5 L was started on free water flushes at 100 cc/h by primary team. Patient was given 500 cc IV bolus, diuresis continues to be on hold. Patient continues to be on mechanical ventilation. 03/21/2025: Patient seen and examined in telemetry. Patient's sodium increased to 153 this morning, free water flushes were decreased to 50 cc/hr yesterday. Free water flushes increased to 100 cc/h this morning by primary team, agree with that management. Patient's free water deficit is around 8.4 L for goal correction of sodium by 10. If patient's hypernatremia continues to be refractory, can consider increasing free water flushes to 150-200 cc/h in the morning. Patient's renal function today BUN 77, creatinine 2.6, EGFR 27. Continue to monitor sodium. 03/23/2025: Patient seen and examined in telemetry. Patient's sodium 149, is on free water flushes 100 cc/h. Continue free water flushes for hypernatremia management, can uptitrate free water flushes 250 cc/h if sodium does not improve. Renal function has improved creatinine 2.4, GFR 29, BUN 63. Will continue to monitor renal function. 03/24/2025: Patient seen and examined at bedside, resting comfortably. Patient is edematous, urine output not being recorded due to difficulty with catheter. Instead patient getting daily weights. Currently on free water flushes 100 cc/h. Sodium 148, potassium 3.8, bicarb 34.1, BUN 64, creatinine 2.2, EGFR 32. Diuretics were held due to sodium, will give Diamox x 1. 03/25/2025: Patient seen and examined at bedside, resting comfortably. Patient remains edematous, appears to have had good response to Diamox. Will give another x 1 Diamox. Sodium 143, potassium 3.9, bicarb 36.3, BUN 50, creatinine 2.2, EGFR 36. Will continue to monitor kidney function. 03/25/2025: Patient seen and examined at bedside, notably uncomfortable. Patient complaining of lower back pain despite pain meds, recommend starting a muscle relaxer. Difficulty measuring patient urinary output, will attempt to place Fuller catheter. Patient had 6.7 L intake due to free water flushes for hypernatremia and tube feeds. Recommended using concentrated tube feeds to reduce total intake. Sodium 147, potassium 3.9, bicarb 39.9, BUN 57, creatinine 1.9, EGFR 39. ABG showed pH 7.46, pCO2 54, pO2 79, bicarb 38. Will give additional Diamox. 03/27/2025: Patient seen and examined at bedside, resting comfortably. Edema has improved. Sodium 147, likely patients new baseline. Potassium 4.3, bicarb 36.7, BUN 50, creatinine 1.8, eGFR 41. Patient had 1.1 L input. WIll give diamox today. Exam Vital Signs Temp Pulse Resp BP Pulse Ox O2 Del Method O2 Flow Rate 97.0 F 94 18 133/88 H 97 Mechanical Ventilation 8 03/27/25 08:00 03/27/25 08:00 03/27/25 08:00 03/27/25 08:00 03/27/25 08:00 03/27/25 04:00 03/27/25 07:19 FiO2 40 03/27/25 07:19 Narrative Exam PE: Gen: Well-developed and well-nourished. Morbidly Obese. HEENT: NCAT, PERRLA, EOMI, MMM, anicteric conjunctivae. CVS: normal S1 and S2. RRR. No M/R/G. Resp: CTA B/L. No rhonchi, rales, crackles or wheezing. Poor lung sounds due to body habitus. Coarse due to ventilator. Abd: soft, non-tender, non-distended. Very edematous pannus. MSK: Good ROM in BUE & BLE. No rash. Diffuse 2+ pitting edema in all extremities, improved. Neuro: CN II-XII grossly intact. Tracheostomy in place. Objective Labs 03/27/25 05:29 03/27/25 05:29 Labs: Laboratory Results - last 24 hr 03/27/25 05:29 WBC 11.5 H RBC 4.01 L Hgb 11.2 L Hct 37.6 L MCV 94 MCH 27.9 MCHC 29.8 L RDW Std Deviation 50.4 H Plt Count 228 Neut % (Auto) 74 Lymph % (Auto) 8 L Taylor % (Auto) 13 H Eos % (Auto) 4 Baso % (Auto) 1 Neut # (Auto) 8.5 H Lymph # (Auto) 0.9 L Taylor # (Auto) 1.5 H Eos # (Auto) 0.4 Baso # (Auto) 0.1 Immature Gran # (Auto) 0.08 H Absolute Nucleated RBC 0.00 Immature Gran % 1 H Nucleated RBC % 0 Sodium 147 H Potassium 4.3 Chloride 104 Carbon Dioxide 36.7 H Anion Gap 6 L BUN 50 H Creatinine 1.8 H Estim Creat Clear Calc 68.8 eGFR 41 L BUN/Creatinine Ratio 28 H Glucose 226 H Calculated Osmolality 312 H Calcium 8.5 Corrected Calcium 9.1 Phosphorus 3.3 Magnesium 2.0 Total Bilirubin 0.8 AST 22 ALT 13 Alkaline Phosphatase 120 H Total Protein 5.8 Albumin 3.2 L Globulin 2.6 Albumin/Globulin Ratio 1.2 ABG Interpretation ABG results: 02/27/25 02/28/25 03/01/25 06:55 04:57 04:39 ABG pH 7.27 L 7.37 D 7.41 ABG pCO2 57 H 48 44 ABG pO2 101 78 L D 69 L ABG HCO3 26 28 H 28 H ABG O2 Saturation 98 95 93 ABG Base Excess -2 2 3 VBG pH VBG pCO2 VBG pO2 VBG Base Excess 03/01/25 03/01/25 03/02/25 13:15 14:52 04:25 ABG pH Cancelled 7.41 7.45 ABG pCO2 Cancelled 45 42 ABG pO2 Cancelled 53 L* 66 L ABG HCO3 Cancelled 28 H 29 H ABG O2 Saturation Cancelled 85 L 92 ABG Base Excess Cancelled 3 5 H VBG pH VBG pCO2 VBG pO2 VBG Base Excess 03/03/25 03/05/25 03/05/25 04:40 16:30 16:55 ABG pH 7.45 Cancelled 7.34 L D ABG pCO2 43 Cancelled 72 H* D ABG pO2 72 L Cancelled 83 ABG HCO3 30 H Cancelled 38 H ABG O2 Saturation 94 Cancelled 95 ABG Base Excess 5 H Cancelled 9 H VBG pH VBG pCO2 VBG pO2 VBG Base Excess 03/05/25 03/06/25 03/06/25 23:36 01:48 05:22 ABG pH 7.37 7.34 L 7.52 H D ABG pCO2 67 H 74 H* 47 D ABG pO2 150 H D 88 D 160 H D ABG HCO3 38 H 40 H 38 H ABG O2 Saturation 99 H 96 100 H ABG Base Excess 10 H 11 H 13 H VBG pH VBG pCO2 VBG pO2 VBG Base Excess 03/06/25 03/07/25 03/07/25 17:10 05:00 14:03 ABG pH 7.46 H ABG pCO2 53 H ABG pO2 65 L D ABG HCO3 38 H ABG O2 Saturation 93 ABG Base Excess 12 H VBG pH 7.50 7.52 VBG pCO2 50 47 VBG pO2 70 H 61 H VBG Base Excess 13 H 14 H 03/09/25 03/09/25 03/09/25 08:17 10:25 17:29 ABG pH 7.25 L D 7.29 L 7.29 L ABG pCO2 93 H* D 85 H* 88 H* ABG pO2 81 L 57 L* D 85 D ABG HCO3 41 H 40 H 43 H ABG O2 Saturation 95 89 L 97 ABG Base Excess 10 H 10 H 12 H VBG pH VBG pCO2 VBG pO2 VBG Base Excess 03/09/25 03/10/25 03/10/25 23:24 07:17 11:25 ABG pH 7.32 L 7.28 L 7.31 L ABG pCO2 78 H* D 90 H* D 81 H* ABG pO2 69 L 47 L* D 63 L ABG HCO3 40 H 43 H 41 H ABG O2 Saturation 94 80 L 93 ABG Base Excess 11 H 12 H 11 H VBG pH VBG pCO2 VBG pO2 VBG Base Excess 03/10/25 03/11/25 03/12/25 16:56 04:19 04:42 ABG pH 7.40 7.48 H 7.43 ABG pCO2 66 H D 54 H D 59 H ABG pO2 68 L 67 L 77 L ABG HCO3 41 H 40 H 39 H ABG O2 Saturation 94 94 96 ABG Base Excess 13 H 15 H 12 H VBG pH VBG pCO2 VBG pO2 VBG Base Excess 03/13/25 03/14/25 03/15/25 04:32 04:25 04:37 ABG pH 7.47 H 7.46 H 7.41 ABG pCO2 53 H 50 H 56 H ABG pO2 60 L 70 L 69 L ABG HCO3 38 H 36 H 35 H ABG O2 Saturation 93 95 95 ABG Base Excess 13 H 10 H 9 H VBG pH VBG pCO2 VBG pO2 VBG Base Excess 03/16/25 03/16/25 03/17/25 04:54 09:53 04:35 ABG pH 7.45 7.48 H 7.47 H ABG pCO2 51 H 49 H 53 H ABG pO2 68 L 34 L* D 87 D ABG HCO3 35 H 37 H 38 H ABG O2 Saturation 95 67 L 97 ABG Base Excess 10 H 12 H 13 H VBG pH VBG pCO2 VBG pO2 VBG Base Excess 03/18/25 03/19/25 03/26/25 04:26 05:00 08:20 ABG pH 7.44 7.45 7.46 H ABG pCO2 57 H 55 H 54 H ABG pO2 107 D 73 L D 79 L ABG HCO3 38 H 38 H 38 H ABG O2 Saturation 99 H 96 97 ABG Base Excess 12 H 12 H 12 H VBG pH VBG pCO2 VBG pO2 VBG Base Excess Quality Measures Quality Measures sepsis Current suspected stage: sepsis Possible source: pulmonary Blood cultures ordered: completed in ED Antibiotic ordered: Yes Advance care planning discussed with:: patient Assessment & Plan Assessment Current Active Medications: Generic Name Dose Route Start Last Admin Trade Name Freq PRN Reason Stop Dose Admin Acetaminophen 650 mg 03/23/25 17:36 03/23/25 17:50 Acetaminophen 325 Mg Tablet PO 03/29/25 09:23 650 mg Q4HR PRN Administration fever > 100.4 or Mild Pain 1-3 Hydrocodone Bitart/Acetaminophen 1 tab 03/26/25 07:57 03/26/25 08:33 Hydrocodone/Apap 5/325 Tablet GT 03/31/25 07:56 1 tab Q4HR PRN Administration PAIN Protocol Al Hydrox/Mg Hydrox/Simethicone 30 ml 03/24/25 09:42 Mg Hyd/Al Hyd/Virgilio (Maalox Reg) Susp 30 Ml Udc NG 03/29/25 09:23 Q4HR PRN Heartburn or Upset Stomach Amiodarone HCl 200 mg 03/24/25 09:45 03/26/25 08:32 Amiodarone Hcl 200 Mg Tablet NG 03/31/25 08:59 200 mg QDAY KOURTNEY Administration Amlodipine Besylate 10 mg 03/24/25 09:45 03/26/25 08:33 Amlodipine Besylate 5 Mg Tablet NG 04/19/25 23:34 10 mg DAILY KOURTNEY Administration Bumetanide 2 mg 03/17/25 21:00 03/18/25 21:28 Bumetanide Inj 0.25 Mg/Ml Vial 4 Ml IVP 04/16/25 20:59 2 mg BID KOURTNEY Administration Cyclobenzaprine HCl 5 mg 03/26/25 08:25 Cyclobenzaprine 5 Mg Tablet PO 04/25/25 08:24 TID PRN MUSCLE SPASMS Protocol Dextrose 25 ml 03/03/25 08:20 Dextrose 50%-Water Inj 50 Ml Syringe IV 04/02/25 08:19 Q15MIN PRN BG 50-70 responsive npo pt Dextrose 50 ml 03/03/25 08:20 Dextrose 50%-Water Inj 50 Ml Syringe IV 04/02/25 08:19 Q15MIN PRN BG <50 OR BG <70 & pt unresponsive Glucagon 1 mg 03/03/25 08:20 Glucagon Inj 1 Mg Vial IM Q15MIN PRN BG <70, and no IV access Albumin Human 25 gm in 100 mls @ 100 mls/hr 03/24/25 11:15 03/26/25 22:32 Albuminar-25 Ivpb IV 03/27/25 11:14 Infused BID KOURTNEY Infusion Insulin Glargine 30 unit 03/27/25 09:00 Insulin Glargine (Lantus) 5 Unit/0.05 Ml (Per 5 Units) SC 04/26/25 08:59 QDAY KOURTNEY Insulin Human Lispro 0 unit 03/25/25 12:00 03/27/25 05:26 Insulin Lispro (Admelog) 1 Unit/0.01 Ml Unit SC 04/24/25 11:59 3 unit Q6HR KOURTNEY Administration Protocol Lansoprazole 30 mg 03/23/25 09:30 03/26/25 08:33 Lansoprazole 30 Mg Tab.Rap.Dr CHAPIN 04/21/25 08:59 30 mg QDAY KOURTNEY Administration Magnesium Hydroxide 30 ml 03/24/25 09:43 03/25/25 05:17 Milk Of Magnesia Susp 30 Ml Udc NG 03/29/25 09:23 30 ml QDAY PRN Administration CONSTIPATION Ondansetron HCl 4 mg 03/05/25 20:46 03/09/25 03:49 Ondansetron Inj 2 Mg/Ml Inj 2 Ml IV 04/04/25 20:45 4 mg Q6HR PRN Administration NAUSEA OR VOMITING Protocol Rivaroxaban 20 mg 03/23/25 17:30 03/26/25 18:22 Rivaroxaban 10 Mg Tablet GT 04/03/25 17:29 20 mg WSUPPER KOURTNEY Administration Plan 64-year-old male with past medical history of DM2, hypertension, and A-fib was admitted to the ICU on 02/27/2025 for acute hypoxic respiratory failure and altered mental status requiring intubation. Nephrology consulted for acute renal failure with worsening kidney function. #KENIA #Metabolic alkalosis #Hypernatremia, Hyper-osmolar Patient has no history of chronic kidney disease. Patient developed KENIA with worsening renal function during hospitalization. Initially suspected of cardiorenal syndrome, was treated with IV Bumex. Despite diuretic therapy patient kidney function continued to worsen. Suspect currently in ATN. Bumex was held, patient started on free water flushes. Patient continued to have worsening kidney function. Patient started on albumin today. Patient appears intravascularly depleted and intravascularly fluid overloaded. Ultrasound taken, unable to visualize kidneys. Urinalysis done showing trace blood, trace protein, 3+ uric acid crystals, 2+ bacteria. Urine total protein 99, urine creatinine 104. Nephrotic proteinuria ruled out, suspect KENIA related to right heart failure in the setting of elevated cardiac wedge pressure. [place]- Mary catheter shows patient is not fluid overloaded. Patient is continue to get free water flushes, unable to accurately track ins and outs due to difficulties with catheter. Currently being weighed daily Patient had good response to Diamox, will give another x 1 today. Continue holding Bumex, sodium has normalized, monitor closely. Patient remains mildly hypernatremic. Continuing free water flushes. Will try to place Fuller catheter for better urinary output measurement. -Free water flushes 100 cc/h -Avoid nephrotoxic agent -Renally dose medication -Monitor daily labs -Diamox 500 mg IV x 1 -Continue holding diuresis -Concentrate tube feeds #Acute encephalopathy #Right diastolic CHF #Hx of A-fib #Acute on chronic hypoxic and hypercapnic respiratory failure #Obesity hypoventilation syndrome and obstructive sleep apnea #Community-acquired pneumonia, Enterobacter [place] #Morbid obesity #DM2 #Community-acquired pneumonia, Enterobacter cloacoe Management as per primary team Thank you for allowing us to participate in the care of this patient. Management discussed with attending Dr. Gannon. Anil Rodriguez MD PGY?1 Attending Provider Attestation/Addendum patient seen and examined with resident physician Dr. Campos. Note reviewed, agree with findings and recommendations. 03/27/2025 Morbidly obese gentleman presented with acute hypoxic/hypercarbic respiratory failure. On ventilator. Significant anasarca noted. Patient made good urine. Currently in KENIA. Hypernatremia-on free water flushes. cr stable one dose Diamox given today s/p trach. NGT feeds, free water flushes ordered Plan of care discussed with primary team.
--- NOTE | 2025-03-27 09:27 | PC.WOUND ---
Alternative phone number for Father Zia Ortega obtained from [employer] ([employer] S/S. Spoke with father regarding pressure injury development, noted refusals of care from staff, current tx plan. He will be at beside approx 1130 to discuss plan of care. Sanam s/s aware, will coordinate with IM team.
--- NOTE | 2025-03-27 09:42 | ESPR_ITS ---
<Statement entered by Lorri Bay MD - 03/27/25 15:55> No overnight symptoms,Patient was seen and examined at bedside. No overnight incidents. Patient was on blow-by, blood pressure is stable. patient still not cooperative with wound care for his bedsores. Still on restraints., His serum sodium still at 147, will continue water flushes of 320 mL every 2 hours, and continue feeding with NG feeding at 65 mL/h. Patient body weight today is 200.8 will continue to monitor closely for fluid overload. Patient still alkalotic he was started by nephrology team on Diamox x 1. Goals of care discussion was held with the family today at 1130 with the social workers, parent requested more time to decide what option they will opt to. Hospice consult was sent throughout, to speak with the family today. - Patient's plan and care discussed with my attending, Dr. Samina Bay MD Internal Medicine PGY-2 Documentation for date of: 03/27/25 Subjective Subjective Interval history: Patient examined at bedside today. No acute overnight events. Patient sodium is still 147. Will speak with family today in regards to possible hospice moving forward. Will have goals of care discussion later today with patient's parents at 11:30 AM. No other complaints this time. Exam Vital Signs Temp Pulse Resp BP Pulse Ox O2 Del Method O2 Flow Rate 97.0 F 94 18 133/88 H 97 Mechanical Ventilation 8 03/27/25 08:00 03/27/25 08:00 03/27/25 08:00 03/27/25 08:00 03/27/25 08:00 03/27/25 04:00 03/27/25 07:19 FiO2 40 03/27/25 07:19 Narrative Exam General: AAOx3, in mild distress, severely morbidly obese HEENT: Dry mucous membranes, conjunctiva clear, EOMI, PERRLA, trachestomy Cardiovascular: Ejection systolic murmur, radial pulses +2 bilat, irregularly irregular, Pulmonary: FiO2 40, Rate 10, PEEP 8, TV 420, on blow-by GI: No tenderness to light or deep palpitation, no guarding, rigidity, rebound tenderness or distension Extremities: +2 Pitting edema in lower extremities bilaterally, dorsalis pedis pulses +2 bilaterally Back: Bedsore present Neuro: AAOx3, no focal motor or sensory deficits in the UE or LE bilat Objective Labs 03/28/25 06:20 03/28/25 06:20 Labs: Laboratory Results - last 24 hr 03/27/25 05:29 WBC 11.5 H RBC 4.01 L Hgb 11.2 L Hct 37.6 L MCV 94 MCH 27.9 MCHC 29.8 L RDW Std Deviation 50.4 H Plt Count 228 Neut % (Auto) 74 Lymph % (Auto) 8 L [place] % (Auto) 13 H Eos % (Auto) 4 Baso % (Auto) 1 Neut # (Auto) 8.5 H Lymph # (Auto) 0.9 L [place] # (Auto) 1.5 H Eos # (Auto) 0.4 Baso # (Auto) 0.1 Immature Gran # (Auto) 0.08 H Absolute Nucleated RBC 0.00 Immature Gran % 1 H Nucleated RBC % 0 Sodium 147 H Potassium 4.3 Chloride 104 Carbon Dioxide 36.7 H Anion Gap 6 L BUN 50 H Creatinine 1.8 H Estim Creat Clear Calc 68.8 eGFR 41 L BUN/Creatinine Ratio 28 H Glucose 226 H Calculated Osmolality 312 H Calcium 8.5 Corrected Calcium 9.1 Phosphorus 3.3 Magnesium 2.0 Total Bilirubin 0.8 AST 22 ALT 13 Alkaline Phosphatase 120 H Total Protein 5.8 Albumin 3.2 L Globulin 2.6 Albumin/Globulin Ratio 1.2 ABG Interpretation ABG results: 02/27/25 02/28/25 03/01/25 06:55 04:57 04:39 ABG pH 7.27 L 7.37 D 7.41 ABG pCO2 57 H 48 44 ABG pO2 101 78 L D 69 L ABG HCO3 26 28 H 28 H ABG O2 Saturation 98 95 93 ABG Base Excess -2 2 3 VBG pH VBG pCO2 VBG pO2 VBG Base Excess 03/01/25 03/01/25 03/02/25 13:15 14:52 04:25 ABG pH Cancelled 7.41 7.45 ABG pCO2 Cancelled 45 42 ABG pO2 Cancelled 53 L* 66 L ABG HCO3 Cancelled 28 H 29 H ABG O2 Saturation Cancelled 85 L 92 ABG Base Excess Cancelled 3 5 H VBG pH VBG pCO2 VBG pO2 VBG Base Excess 03/03/25 03/05/25 03/05/25 04:40 16:30 16:55 ABG pH 7.45 Cancelled 7.34 L D ABG pCO2 43 Cancelled 72 H* D ABG pO2 72 L Cancelled 83 ABG HCO3 30 H Cancelled 38 H ABG O2 Saturation 94 Cancelled 95 ABG Base Excess 5 H Cancelled 9 H VBG pH VBG pCO2 VBG pO2 VBG Base Excess 03/05/25 03/06/25 03/06/25 23:36 01:48 05:22 ABG pH 7.37 7.34 L 7.52 H D ABG pCO2 67 H 74 H* 47 D ABG pO2 150 H D 88 D 160 H D ABG HCO3 38 H 40 H 38 H ABG O2 Saturation 99 H 96 100 H ABG Base Excess 10 H 11 H 13 H VBG pH VBG pCO2 VBG pO2 VBG Base Excess 03/06/25 03/07/25 03/07/25 17:10 05:00 14:03 ABG pH 7.46 H ABG pCO2 53 H ABG pO2 65 L D ABG HCO3 38 H ABG O2 Saturation 93 ABG Base Excess 12 H VBG pH 7.50 7.52 VBG pCO2 50 47 VBG pO2 70 H 61 H VBG Base Excess 13 H 14 H 03/09/25 03/09/25 03/09/25 08:17 10:25 17:29 ABG pH 7.25 L D 7.29 L 7.29 L ABG pCO2 93 H* D 85 H* 88 H* ABG pO2 81 L 57 L* D 85 D ABG HCO3 41 H 40 H 43 H ABG O2 Saturation 95 89 L 97 ABG Base Excess 10 H 10 H 12 H VBG pH VBG pCO2 VBG pO2 VBG Base Excess 03/09/25 03/10/25 03/10/25 23:24 07:17 11:25 ABG pH 7.32 L 7.28 L 7.31 L ABG pCO2 78 H* D 90 H* D 81 H* ABG pO2 69 L 47 L* D 63 L ABG HCO3 40 H 43 H 41 H ABG O2 Saturation 94 80 L 93 ABG Base Excess 11 H 12 H 11 H VBG pH VBG pCO2 VBG pO2 VBG Base Excess 03/10/25 03/11/25 03/12/25 16:56 04:19 04:42 ABG pH 7.40 7.48 H 7.43 ABG pCO2 66 H D 54 H D 59 H ABG pO2 68 L 67 L 77 L ABG HCO3 41 H 40 H 39 H ABG O2 Saturation 94 94 96 ABG Base Excess 13 H 15 H 12 H VBG pH VBG pCO2 VBG pO2 VBG Base Excess 03/13/25 03/14/25 03/15/25 04:32 04:25 04:37 ABG pH 7.47 H 7.46 H 7.41 ABG pCO2 53 H 50 H 56 H ABG pO2 60 L 70 L 69 L ABG HCO3 38 H 36 H 35 H ABG O2 Saturation 93 95 95 ABG Base Excess 13 H 10 H 9 H VBG pH VBG pCO2 VBG pO2 VBG Base Excess 03/16/25 03/16/25 03/17/25 04:54 09:53 04:35 ABG pH 7.45 7.48 H 7.47 H ABG pCO2 51 H 49 H 53 H ABG pO2 68 L 34 L* D 87 D ABG HCO3 35 H 37 H 38 H ABG O2 Saturation 95 67 L 97 ABG Base Excess 10 H 12 H 13 H VBG pH VBG pCO2 VBG pO2 VBG Base Excess 03/18/25 03/19/25 03/26/25 04:26 05:00 08:20 ABG pH 7.44 7.45 7.46 H ABG pCO2 57 H 55 H 54 H ABG pO2 107 D 73 L D 79 L ABG HCO3 38 H 38 H 38 H ABG O2 Saturation 99 H 96 97 ABG Base Excess 12 H 12 H 12 H VBG pH VBG pCO2 VBG pO2 VBG Base Excess Quality Measures Quality Measures sepsis Current suspected stage: ruled out Possible source: pulmonary Blood cultures ordered: completed in ED Antibiotic ordered: No Advance care planning discussed with:: patient and other (parents) Assessment & Plan Assessment Current Active Medications: Generic Name Dose Route Start Last Admin Trade Name Freq PRN Reason Stop Dose Admin Acetaminophen 650 mg 03/23/25 17:36 03/23/25 17:50 Acetaminophen 325 Mg Tablet PO 03/29/25 09:23 650 mg Q4HR PRN Administration fever > 100.4 or Mild Pain 1-3 Hydrocodone Bitart/Acetaminophen 1 tab 03/26/25 07:57 03/26/25 08:33 Hydrocodone/Apap 5/325 Tablet GT 03/31/25 07:56 1 tab Q4HR PRN Administration PAIN Protocol Al Hydrox/Mg Hydrox/Simethicone 30 ml 03/24/25 09:42 Mg Hyd/Al Hyd/Virgilio (Maalox Reg) Susp 30 Ml Udc NG 03/29/25 09:23 Q4HR PRN Heartburn or Upset Stomach Amiodarone HCl 200 mg 03/24/25 09:45 03/26/25 08:32 Amiodarone Hcl 200 Mg Tablet NG 03/31/25 08:59 200 mg QDAY KOURTNEY Administration Amlodipine Besylate 10 mg 03/24/25 09:45 03/26/25 08:33 Amlodipine Besylate 5 Mg Tablet NG 04/19/25 23:34 10 mg DAILY KOURTNEY Administration Bumetanide 2 mg 03/17/25 21:00 03/18/25 21:28 Bumetanide Inj 0.25 Mg/Ml Vial 4 Ml IVP 04/16/25 20:59 2 mg BID KOURTNEY Administration Cyclobenzaprine HCl 5 mg 03/26/25 08:25 Cyclobenzaprine 5 Mg Tablet PO 04/25/25 08:24 TID PRN MUSCLE SPASMS Protocol Dextrose 25 ml 03/03/25 08:20 Dextrose 50%-Water Inj 50 Ml Syringe IV 04/02/25 08:19 Q15MIN PRN BG 50-70 responsive npo pt Dextrose 50 ml 03/03/25 08:20 Dextrose 50%-Water Inj 50 Ml Syringe IV 04/02/25 08:19 Q15MIN PRN BG <50 OR BG <70 & pt unresponsive Glucagon 1 mg 03/03/25 08:20 Glucagon Inj 1 Mg Vial IM Q15MIN PRN BG <70, and no IV access Albumin Human 25 gm in 100 mls @ 100 mls/hr 03/24/25 11:15 03/26/25 22:32 Albuminar-25 Ivpb IV 03/27/25 11:14 Infused BID KOURTNEY Infusion Insulin Glargine 30 unit 03/27/25 09:00 Insulin Glargine (Lantus) 5 Unit/0.05 Ml (Per 5 Units) SC 04/26/25 08:59 QDAY KOURTNEY Insulin Human Lispro 0 unit 03/25/25 12:00 03/27/25 05:26 Insulin Lispro (Admelog) 1 Unit/0.01 Ml Unit SC 04/24/25 11:59 3 unit Q6HR KOURTNEY Administration Protocol Lansoprazole 30 mg 03/23/25 09:30 03/26/25 08:33 Lansoprazole 30 Mg Tab.Rap.Dr CHAPIN 04/21/25 08:59 30 mg QDAY KOURTNEY Administration Magnesium Hydroxide 30 ml 03/24/25 09:43 03/25/25 05:17 Milk Of Magnesia Susp 30 Ml Udc DARI 03/29/25 09:23 30 ml QDAY PRN Administration CONSTIPATION Ondansetron HCl 4 mg 03/05/25 20:46 03/09/25 03:49 Ondansetron Inj 2 Mg/Ml Inj 2 Ml IV 04/04/25 20:45 4 mg Q6HR PRN Administration NAUSEA OR VOMITING Protocol Rivaroxaban 20 mg 03/23/25 17:30 03/26/25 18:22 Rivaroxaban 10 Mg Tablet GT 04/03/25 17:29 20 mg WSUPPER KOURTNEY Administration Plan Assessment 64-year-old male with past medical history of DM2, hypertension, A-fib, and Jehova's witness was admitted to the ICU on 02/27/2025 for shock and acute hypoxic respiratory failure. We had goals of care conversation with family, they will need time to decide if they will decide on hospice or IR Jejunostomy. Hospice to discuss with patient's parents later today. If patient and patient's family refuses hospice care, we will transfer patient to higher level of care for IR jejunostomy. 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 NG placement lost, unable to replace. DR. Doty consulted and will re-insert NG tube. General surgery, IR unable to do J- tube given history of daniel-en-y gastric bypass. Patient would benefit from TPN/PPN. Resumed tube feeds via NG tube Glucerna IR unable to put in PICC line today for TPN Continues to be on blow-by. Did not tolerate PMS valve, as per speech therapist patient will need time to adjust further tracheostomy before the trial of PNS. Will reevaluate if the patient tolerated the PMS we will do another session of speech evaluation, the patient unable to perform the speech evaluation we will transfer the patient to higher level of care for placement of PEG tube versus duodenojejunostomy. Patient will work with speech therapy to see if patient's dysphagia improves Patient will likely fail, and also will likely require tracheostomy due to respiratory failure Patient will need IR jejunostomy due to history of Daniel-en-Y We will concentrate patient's feed due to patient having too much intake Plan: - 2Cal RN via NG tube, 320 cc every 2 hours for water flushes ? Multivitamin #Right diastolic CHF, improved Echo could not visualize all chambers with limited ability to determine patient's ejection fraction. Given body habitus, history of obstructive sleep apnea and obesity hypoventilation syndrome, right heart failure suspected. Lower pedal edema likely combination of heart failure and third spacing. [place] 03/15 showed elevated RAP 25 PAP 38 PCWP 23. [place] 03/16/2025 PCWP 9 (=17-8) [place] 03/19/2025: RAP 8, PAP 27, PCWP 7 Dry weight: 197.9 Dry BNP 135 High cardiac output Continuing water flushes at this time at 100 cc an hour, will have to do body weights to assess for urine output as patient does not have Fuller or condom catheter at this time His weight today is 201 kg Consult with nephro and cardio if we need diuresis Plan: ? Cardiology consulted, appreciate recs ? Continuing to hold Bumex - Daily weights - Strict I&O #Hx of A-fib [id number] score of 3 points indicating 3.2% risk of stroke per year HAS-BLED: 0 Plan: - Continue PO amiodarone 200 mg qday with small sips of water ? Potassium and magnesium above 4 and 2 respectively - Resumed Xarelto ? Telemetry #Acute on chronic hypoxic and hypercapnic respiratory failure #Obesity hypoventilation syndrome and obstructive sleep apnea #Community-acquired pneumonia, Enterobacter [place] #Tracheostomy Patient was intubated on 02/27/2025, extubated 03/03/2025. Reintubated on 03/06/2025 and extubated 03/07/2025. Reintubated 03/10/2025 for hypercapnic encephalopathy Tracheostomy tube placed 03/15 [place] 03/19/2025 PEEP 8, RR 10, FiO2 40, TV 420 Blow-by during the day, ventilation at night will continue to feed patient, with hopes of mentation improving and possible removal of tracheostomy Will see if patient tolerates PMV valve today Plan: ?Ventilatory support at bedtime, blow-by during the day. - Continue vent, wean as tolerated #KENIA improving #Hypokalemia #Hypernatremia #Metabolic alkalosis Pre-renal from cardiorenal and edema in the setting of third spacing, low albumin. Bumex drip discontinued. Right heart cath shows CVP 8, shows appropriate diuresis, however patient will need some fluid at this time Unable to assess urine output as the penile area is retracted, there is also a wound from the pure wick during his stay, the patient is immobile. Will continue to monitor his intake, at this time his on water flushes 100 mL/h in addition to his 65 mL/h tube feed. Will decrease water flushes as seen with we reached to goal of sodium level. Creatinine 1.9 today, may consider diuresis tomorrow Plan: - Nephrology following, Dr. Gannon, appreciate recommendations ? Water flushes 320 cc every 2 hours for water flushes ? Diamox x 1 #Hypernatremia, Hyper-osmolar Sodium 147 today Plan: ? 320 cc every 2 hours for water flushes ? Trend with CMP #Decubitus ulcer Patient will likely have worsening of this ulcer, it is not great for yet at this point however due to patient's immobility we can anticipate this will worsen Plan: ? Monitor as patient is refusing care at this time ? Monitor for signs of infection ? Wound care ? Wound care vitamins including zinc, multivitamin and vitamin C #Morbid obesity #DM2 A1C 7.6 on 03/05/2025 Patient has a BMI of 79.5 Plan: - ISS scale 2 - Hypoglycemia protocol ordered ? 30 units of Lantus #Normocytic Anemia likely secondary to anemia of chronic disease given normal MCV. No acute intervention, continue to monitor #Leukocytosis, resolved #Enterobacter cloacoe pneumonia, resolved. Finished Rocephin (03/06/2025) - Cefepime 03/18/2025, completed #Acute encephalopathy, resolved #Health Maintenance Disposition: Telemetry DVT prophylaxis: Xarelto GI prophylaxis: Protonix Diet: NG tube feeds with 2Cal with 320 cc every 2 hours for water flushes CODE STATUS: Full Patient seen and care discussed with my attending physician, Dr. Haas and my senior resident, Dr. Phu Shields, PGY-1 Attending Provider Attestation/Addendum I have examined the patient, reviewed labs and imaging findings, discussed the case with the resident(s), and reviewed entered orders. I agree with the plan of care as outlined in this note, with these additional summaries/recommendations: Patient seen at bedside. He appears less alert today and unable to write. At this time I do not feel patient has the capacity to make his medical decisions and goals of care were held with patient's only living family members who are his parents. We discussed all of patient's medical problems including treatment and prognosis. Treatment options including hospice care/comfort care versus transfer for IR jejunostomy feeding tube given patient's previous role X and Y gastrojejunostomy surgery. Patient's family will speak with the hospice company and likely update medical team tomorrow. Patient also has been refusing wound care and is developed a significant decubitus ulcer which wound care is following. Continue mechanical ventilation for chronic respiratory failure. Repeat hematology and chemistry panel in AM. Dr. Samina MD
--- NOTE | 2025-03-27 09:48 | PC.DIETICIAN ---
Nutrition recommendations: 1. TwoCal HN at 42 ml/hr x 24 hrs via ND tube by pump (goal). If no IV fluids, water flushes of 100 ml/hr (per MD). 2. ProStat 30ml TID via ND tube. 3. Vitamin C 500 mg BID, zinc sulfate 220 mg once daily for 14 days, multivit/minerals.
--- NOTE | 2025-03-27 09:52 | PC.SS ---
Follow up note: SS met with pt yesterday, 03-26-25 but he was unable to communicate with SS. Pt attempted to write response but was unable. Per Wound Care Nurse, Paula westbrook will come to bedside at 11:30 to meet with physicians to discuss Hospice Services. Dr. Haas and resident physicians are aware.
[2025-03-27] MEDS: AMIODARONE HCL 200 MG TABLET NG (10:05)
[2025-03-27] MEDS: amLODIPine BESYLATE 5 MG TABLET 10 MG NG (10:05)
[2025-03-27] MEDS: ALBUMIN HUMAN 25% IVPB 25 GM/100 ML BTL IV (10:05)
[2025-03-27] MEDS: LANSOPRAZOLE 30 MG TAB.RAP.DR NG (10:05)
[2025-03-27] MEDS: INSULIN GLARGINE (Lantus) 5 UNIT/0.05 ML (PER 5 UNITS) 30 UNIT SC (10:06)
--- NOTE | 2025-03-27 11:30 | PC.WOUND ---
Addendum entered by Nadeen Campa RN 03/27/25 12:45: Dr. Haas and IM team with social media designer also at bedside. Original Note: Attended goals of care discussion with mother and father at bedside including wound care needs - hospice vs HLC transfer. All questions and concerns address to parents understanding.
[2025-03-27] MEDS: MULTIVITAMIN 15 ML UDC NG (12:32)
[2025-03-27] MEDS: ASCORBIC ACID 250 MG TABLET 500 MG NG ×2 (12:32→20:13)
[2025-03-27] MEDS: ZINC SULFATE 220 MG CAPSULE NG (12:32)
--- NOTE | 2025-03-27 14:49 | PC.SS ---
Addendum entered by Janessa Ramírez 03/27/25 15:30: [facility] accept patients with a trach and no peg tube. Jose explained he is seeking a place that is able to accommodate patient's weight. Addendum entered by Janessa Ramírez 03/27/25 15:17: SS received call back from Nadira from [facility] who confirmed she can meet with patient's parents tomorrow 03-28-25 at 12pm in patient's room. Dad is aware and is agreeable to meet with [facility]. Original Note: EDUARDO, HORTENCIA, Gustavo, Dr. Haas, and Resident Physicians met with pt, mom, and dad to have goals of care discussion. Pt is not alert and oriented. Physicians discussed Hospice Services vs higher level of care transfer for peg tube tube. Mom and Dad are aware pt does not have Medical insurance for SNF placement. Mom and dad are aware pt has [facility] which covers Hospices Services. Mom and dad requested to have A Hospice payroll representative meet with them tomorrow around 12pm. SS provided them with Hospice brochures and their choice is [facility]. SS has called and spoke to Neva from [facility] to arrange Hospice meeting for tomorrow. has provided Neva, from [facility] with SS contact information. SS called Cely the financial developer and left voicemail. Dad is agreeable to help with Medical application.
--- NOTE | 2025-03-27 14:51 | ESPR_ITS ---
<Statement entered by Lenora John MD - 03/29/25 07:54> I personally evaluated examined this patient cardiac status is stable remains in A-fib rate controlled heart failure well compensated has multiple problems requires placement and discharge planning. Documentation for date of: 03/27/25 Subjective Subjective Interval history: Patient was examined bedside this afternoon, no acute overnight event , he is saturating well on blowby. his Na today was 147 . pending deposition Exam Vital Signs Temp Pulse Resp BP Pulse Ox O2 Del Method O2 Flow Rate 97.0 F 111 H 18 133/88 H 97 Mechanical Ventilation 8 03/27/25 08:00 03/27/25 12:00 03/27/25 08:00 03/27/25 10:05 03/27/25 08:00 03/27/25 04:00 03/27/25 07:19 FiO2 40 03/27/25 07:19 Narrative Exam Gen: Well-developed and well-nourished morbidly obese male. HEENT: NCAT, PERRLA, EOMI, MMM, anicteric conjunctivae, tracheostomy in place. CVS: Decreased heart sounds, normal S1 and S2. RRR. No M/R/G. Resp: Decreased breath sounds B/L. No rhonchi, rales, crackles or wheezing. Abd: soft, morbidly obese, non-tender, non-distended. BS+ in all 4 quadrants. Pitting edema over bilateral flanks and sides. MSK: Good ROM in BUE & BLE. 2+ pitting edema BLE. Neuro: Limited exam due to medical condition. Objective Labs 03/27/25 05:29 03/27/25 05:29 Labs: Laboratory Results - last 24 hr 03/27/25 05:29 WBC 11.5 H RBC 4.01 L Hgb 11.2 L Hct 37.6 L MCV 94 MCH 27.9 MCHC 29.8 L RDW Std Deviation 50.4 H Plt Count 228 Neut % (Auto) 74 Lymph % (Auto) 8 L [place] % (Auto) 13 H Eos % (Auto) 4 Baso % (Auto) 1 Neut # (Auto) 8.5 H Lymph # (Auto) 0.9 L [place] # (Auto) 1.5 H Eos # (Auto) 0.4 Baso # (Auto) 0.1 Immature Gran # (Auto) 0.08 H Absolute Nucleated RBC 0.00 Immature Gran % 1 H Nucleated RBC % 0 Sodium 147 H Potassium 4.3 Chloride 104 Carbon Dioxide 36.7 H Anion Gap 6 L BUN 50 H Creatinine 1.8 H Estim Creat Clear Calc 68.8 eGFR 41 L BUN/Creatinine Ratio 28 H Glucose 226 H Calculated Osmolality 312 H Calcium 8.5 Corrected Calcium 9.1 Phosphorus 3.3 Magnesium 2.0 Total Bilirubin 0.8 AST 22 ALT 13 Alkaline Phosphatase 120 H Total Protein 5.8 Albumin 3.2 L Globulin 2.6 Albumin/Globulin Ratio 1.2 ABG Interpretation ABG results: 02/27/25 02/28/25 03/01/25 06:55 04:57 04:39 ABG pH 7.27 L 7.37 D 7.41 ABG pCO2 57 H 48 44 ABG pO2 101 78 L D 69 L ABG HCO3 26 28 H 28 H ABG O2 Saturation 98 95 93 ABG Base Excess -2 2 3 VBG pH VBG pCO2 VBG pO2 VBG Base Excess 03/01/25 03/01/25 03/02/25 13:15 14:52 04:25 ABG pH Cancelled 7.41 7.45 ABG pCO2 Cancelled 45 42 ABG pO2 Cancelled 53 L* 66 L ABG HCO3 Cancelled 28 H 29 H ABG O2 Saturation Cancelled 85 L 92 ABG Base Excess Cancelled 3 5 H VBG pH VBG pCO2 VBG pO2 VBG Base Excess 03/03/25 03/05/25 03/05/25 04:40 16:30 16:55 ABG pH 7.45 Cancelled 7.34 L D ABG pCO2 43 Cancelled 72 H* D ABG pO2 72 L Cancelled 83 ABG HCO3 30 H Cancelled 38 H ABG O2 Saturation 94 Cancelled 95 ABG Base Excess 5 H Cancelled 9 H VBG pH VBG pCO2 VBG pO2 VBG Base Excess 03/05/25 03/06/25 03/06/25 23:36 01:48 05:22 ABG pH 7.37 7.34 L 7.52 H D ABG pCO2 67 H 74 H* 47 D ABG pO2 150 H D 88 D 160 H D ABG HCO3 38 H 40 H 38 H ABG O2 Saturation 99 H 96 100 H ABG Base Excess 10 H 11 H 13 H VBG pH VBG pCO2 VBG pO2 VBG Base Excess 03/06/25 03/07/25 03/07/25 17:10 05:00 14:03 ABG pH 7.46 H ABG pCO2 53 H ABG pO2 65 L D ABG HCO3 38 H ABG O2 Saturation 93 ABG Base Excess 12 H VBG pH 7.50 7.52 VBG pCO2 50 47 VBG pO2 70 H 61 H VBG Base Excess 13 H 14 H 03/09/25 03/09/25 03/09/25 08:17 10:25 17:29 ABG pH 7.25 L D 7.29 L 7.29 L ABG pCO2 93 H* D 85 H* 88 H* ABG pO2 81 L 57 L* D 85 D ABG HCO3 41 H 40 H 43 H ABG O2 Saturation 95 89 L 97 ABG Base Excess 10 H 10 H 12 H VBG pH VBG pCO2 VBG pO2 VBG Base Excess 03/09/25 03/10/25 03/10/25 23:24 07:17 11:25 ABG pH 7.32 L 7.28 L 7.31 L ABG pCO2 78 H* D 90 H* D 81 H* ABG pO2 69 L 47 L* D 63 L ABG HCO3 40 H 43 H 41 H ABG O2 Saturation 94 80 L 93 ABG Base Excess 11 H 12 H 11 H VBG pH VBG pCO2 VBG pO2 VBG Base Excess 03/10/25 03/11/25 03/12/25 16:56 04:19 04:42 ABG pH 7.40 7.48 H 7.43 ABG pCO2 66 H D 54 H D 59 H ABG pO2 68 L 67 L 77 L ABG HCO3 41 H 40 H 39 H ABG O2 Saturation 94 94 96 ABG Base Excess 13 H 15 H 12 H VBG pH VBG pCO2 VBG pO2 VBG Base Excess 03/13/25 03/14/25 03/15/25 04:32 04:25 04:37 ABG pH 7.47 H 7.46 H 7.41 ABG pCO2 53 H 50 H 56 H ABG pO2 60 L 70 L 69 L ABG HCO3 38 H 36 H 35 H ABG O2 Saturation 93 95 95 ABG Base Excess 13 H 10 H 9 H VBG pH VBG pCO2 VBG pO2 VBG Base Excess 05/02/0503/16/25 03/17/25 04:54 09:53 04:35 ABG pH 7.45 7.48 H 7.47 H ABG pCO2 51 H 49 H 53 H ABG pO2 68 L 34 L* D 87 D ABG HCO3 35 H 37 H 38 H ABG O2 Saturation 95 67 L 97 ABG Base Excess 10 H 12 H 13 H VBG pH VBG pCO2 VBG pO2 VBG Base Excess 03/18/25 03/19/25 03/26/25 04:26 05:00 08:20 ABG pH 7.44 7.45 7.46 H ABG pCO2 57 H 55 H 54 H ABG pO2 107 D 73 L D 79 L ABG HCO3 38 H 38 H 38 H ABG O2 Saturation 99 H 96 97 ABG Base Excess 12 H 12 H 12 H VBG pH VBG pCO2 VBG pO2 VBG Base Excess Quality Measures Quality Measures sepsis Current suspected stage: ruled out Possible source: pulmonary Blood cultures ordered: completed in ED Antibiotic ordered: Yes Advance care planning discussed with:: patient Assessment & Plan Assessment Current Active Medications: Generic Name Dose Route Start Last Admin Trade Name Freq PRN Reason Stop Dose Admin Acetaminophen 650 mg 03/23/25 17:36 03/23/25 17:50 Acetaminophen 325 Mg Tablet PO 03/29/25 09:23 650 mg Q4HR PRN Administration fever > 100.4 or Mild Pain 1-3 Hydrocodone Bitart/Acetaminophen 1 tab 03/26/25 07:57 03/26/25 08:33 Hydrocodone/Apap 5/325 Tablet GT 03/31/25 07:56 1 tab Q4HR PRN Administration PAIN Protocol Al Hydrox/Mg Hydrox/Simethicone 30 ml 03/24/25 09:42 Mg Hyd/Al Hyd/Virgilio (Maalox Reg) Susp 30 Ml Udc NG 03/29/25 09:23 Q4HR PRN Heartburn or Upset Stomach Amiodarone HCl 200 mg 03/24/25 09:45 03/27/25 10:05 Amiodarone Hcl 200 Mg Tablet NG 03/31/25 08:59 200 mg QDAY KOURTNEY Administration Amlodipine Besylate 10 mg 03/24/25 09:45 03/27/25 10:05 Amlodipine Besylate 5 Mg Tablet NG 04/19/25 23:34 10 mg DAILY KOURTNEY Administration Ascorbic Acid 500 mg 03/27/25 12:00 03/27/25 12:32 Ascorbic Acid 250 Mg Tablet NG 04/26/25 11:59 500 mg BID KOURTNEY Administration Bumetanide 2 mg 03/17/25 21:00 03/18/25 21:28 Bumetanide Inj 0.25 Mg/Ml Vial 4 Ml IVP 04/16/25 20:59 2 mg BID KOURTNEY Administration Cyclobenzaprine HCl 5 mg 03/26/25 08:25 Cyclobenzaprine 5 Mg Tablet PO 04/25/25 08:24 TID PRN MUSCLE SPASMS Protocol Dextrose 25 ml 03/03/25 08:20 Dextrose 50%-Water Inj 50 Ml Syringe IV 04/02/25 08:19 Q15MIN PRN BG 50-70 responsive npo pt Dextrose 50 ml 03/03/25 08:20 Dextrose 50%-Water Inj 50 Ml Syringe IV 04/02/25 08:19 Q15MIN PRN BG <50 OR BG <70 & pt unresponsive Glucagon 1 mg 03/03/25 08:20 Glucagon Inj 1 Mg Vial IM Q15MIN PRN BG <70, and no IV access Insulin Glargine 30 unit 03/27/25 09:00 03/27/25 10:06 Insulin Glargine (Lantus) 5 Unit/0.05 Ml (Per 5 Units) SC 04/26/25 08:59 30 unit QDAY KOURTNEY Administration Insulin Human Lispro 0 unit 03/25/25 12:00 03/27/25 11:47 Insulin Lispro (Admelog) 1 Unit/0.01 Ml Unit SC 04/24/25 11:59 2 unit Q6HR OKURTNEY Administration Protocol Lansoprazole 30 mg 03/23/25 09:30 03/27/25 10:05 Lansoprazole 30 Mg Tab.Rap. NG 04/21/25 08:59 30 mg QDAY KOURTNEY Administration Magnesium Hydroxide 30 ml 03/24/25 09:43 03/25/25 05:17 Milk Of Magnesia Susp 30 Ml Udc NG 03/29/25 09:23 30 ml QDAY PRN Administration CONSTIPATION Multivitamins/Minerals 15 ml 03/27/25 12:00 03/27/25 12:32 Multivitamin 15 Ml Udc NG 04/26/25 11:59 15 ml QDAY KOURTNEY Administration Ondansetron HCl 4 mg 03/05/25 20:46 03/09/25 03:49 Ondansetron Inj 2 Mg/Ml Inj 2 Ml IV 04/04/25 20:45 4 mg Q6HR PRN Administration NAUSEA OR VOMITING Protocol Rivaroxaban 20 mg 03/23/25 17:30 03/26/25 18:22 Rivaroxaban 10 Mg Tablet GT 04/03/25 17:29 20 mg WSUPPER KOURTNEY Administration Zinc Sulfate 220 mg 03/27/25 12:00 03/27/25 12:32 Zinc Sulfate 220 Mg Capsule NG 04/10/25 11:59 220 mg QDAY KOURTNEY Administration Plan 64-year-old male with significant past medical history of hypertension, diabetes mellitus, A-fib was admitted to the ICU on 02/27/2025 after coming in with altered mental status and shortness of breath, intubated for acute hypoxic respiratory failure and had suspected obesity hypoventilation syndrome/obstructive sleep apnea/pneumonia and acute kidney injury. He was extubated on 03/03 and downgraded then re-intubated on 03/06 due to confusion and tachypneia. He was then extubated and downgraded to the floor on 03/07. On 03/10, patient again had decreased mentation on the BiPAP so was reintubated and upgraded. Cardiology has been consulted for suspected heart failure. #Right congestive heart failure with preserved EF. #Severe BASIA/OHS. Echo on this admission showed poor quality images secondary to the patient's body habitus so was a technically limited study. Suspect chronic right heart failure in the setting of chronic obesity hypoventilation syndrome and obstructive sleep apnea. Currently appears to be more pulmonary component to respiratory failure than cardiac. Requiring ventilation support. -Echo 02/27/25: IVC appears to be dilated and also estimated RVSP also appears to be at least moderately elevated at 55 mmHg. 03/14/25: Will hold dirutics for now , he was given IV fluids yesterday. 03/15/25 : [place] catheter was placed by ICU team which showed PA pressure of more than 30s and wedge pressure was also high . started him on bumex drip . will continue the albumin . he is getting his peg tube today 03/16/25: ICU team tried another [place] catheter today which showed RA pressure of 25, PA pressure of 38, PCWP of 23. Plan is to continue Bumex for him. Cr stable at 2.5 03/17/2025: Net fluid balance -3350 cc. ICU team held Bumex due to significant electrolyte abnormalities, potassium 2.7. Once repleted Bumex drip will be resumed. Continue current management and monitor patient. 03/18/2025: net fluid balance -1650 , he received 1 dose of diamox yesterday. will continue to diures, he is off ventillor in blowby with PRN ventillator when he gets tired. 03/19/2025: no acute overnight event.Balance of -950 . ICU team put a swan catheter which showed he is adequately diressed for now, so bumex on hold for now. pending pegtube placement, its been difficult to do the procedure consedering his Rouxy history. Plan: 03/20/2025: Will hold dirutics for now, he was given IV LR and FWF via NG for hypernatremia. 03/21/2025: no acute overnight event. free water flushes increase today for hypernatremia . Xarelto resumed . bumex on hold ,Dr Doty recommending jejunostomy placement. 03/22/2025: Patient has tracheostomy inplace and is unable to communicate much Telemetry reviewed and rest of the vital signs including the heart rate appears to be stable. Labs showed that the patient still continues to have hyponatremia at 150 and also has elevated creatinine at 2.6 and a BUN of 66. Patient is on renal water flushes for the hyponatremia and creatinine continues to improve and baseline creatinine appears to be around 2.0 Recommend to continue with free water flushes for now. Patient is morbidly obese with multiple comorbidities as mentioned below and overall prognosis appears to be poor Primary team to discuss with the family regarding goals of care. 03/23/2025 Continued on free water flushes, sodium 150 > 149. Renal function showing minor improvement with BUN 63, CR 2.4, EGFR 29. Poor urine output. 2/3+ LE edema noted on exam again. Vitals relatively normal, BP 121/92, HR 98 although spikes of HR 120s noted on tele, continued on blow-by and satting well. ? Continue with free-water flushes, monitor renal function closely ? Continue AMIODARONE 200 mg daily ? Continue AMLODIPINE 10 mg daily ? Continue XARELTO 20 mg ? Okay holding BUMEX 2 mg IV BID as per nephro team, may need HD eventually if renally function not improving, kadi givens persisting edema. 03/25/2025: no acute overnight event, he was given diamox by nephrology speech therapist was at bedside , kidney function improving . Na is normal today at 143 . Bumex still on hold. .Continue amiodarone 200 mg daily, Amlodipine 10 mg daily, Continue XARELTO 20 mg 03/26/2025: no acute overnight event , primary team reffered him to hospice pending decision . Bumex still on hold. .Continue amiodarone 200 mg daily, Amlodipine 10 mg daily, Continue XARELTO 20 mg 03/27/2025: no acute overnight event . Bumex still on hold. .Continue amiodarone 200 mg daily, Amlodipine 10 mg daily, Continue XARELTO 20 mg, his na is 147 . pending disposition as pt patients need more time to decide. #Atrial fibrillation, rate controlled. Patient notes positive history of afib. He had previously been on metoprolol succinate 100 mg BID. Currently appears rate-controlled in the 100s. CHADS-VASc score 4 Plan: -Resume Xarelto. -Continue amiodarone 200 mg qday. -Keep potassium >4.0 and mag >2.0. Rest of conditions to continue current management per primary team: #Acute hypoxic respiratory failure s/p tracheostomy. #Morbid obesity. #Community acquired pneumonia. #Elevated LFTs, resolved. #Hyperbilirubinemia, resolved. #History of type 2 diabetes. #Lactic acidosis, resolved. #KENIA on CKD. #Hypernatremia. Discussed the patient with my attending Dr Alvaro Newell MD, PGY-3
[2025-03-27] MEDS: ACETAzolaMIDE SOD 500 MG in SODIUM CHLORIDE 0.9% (Popper) 50 ML 100 MG IV (15:48)
[2025-03-27] MEDS: RIVAROXABAN 10 MG TABLET 20 MG GT (17:10)
--- NOTE | 2025-03-27 20:30 | PD.IMPROG ---
Documentation for date of: 03/27/25 Subjective Subjective Interval history: Enteral feeding with NGT Exam Vital Signs Temp Pulse Resp BP Pulse Ox O2 Del Method O2 Flow Rate 96.9 F 106 H 20 133/99 H 96 Mechanical Ventilation 8 03/27/25 20:00 03/27/25 20:00 03/27/25 20:00 03/27/25 20:00 03/27/25 20:00 03/27/25 04:00 03/27/25 07:19 FiO2 40 03/27/25 07:19 Objective Labs 03/27/25 05:29 03/27/25 05:29 Labs: Laboratory Results - last 24 hr 03/27/25 05:29 WBC 11.5 H RBC 4.01 L Hgb 11.2 L Hct 37.6 L MCV 94 MCH 27.9 MCHC 29.8 L RDW Std Deviation 50.4 H Plt Count 228 Neut % (Auto) 74 Lymph % (Auto) 8 L [place] % (Auto) 13 H Eos % (Auto) 4 Baso % (Auto) 1 Neut # (Auto) 8.5 H Lymph # (Auto) 0.9 L [place] # (Auto) 1.5 H Eos # (Auto) 0.4 Baso # (Auto) 0.1 Immature Gran # (Auto) 0.08 H Absolute Nucleated RBC 0.00 Immature Gran % 1 H Nucleated RBC % 0 Sodium 147 H Potassium 4.3 Chloride 104 Carbon Dioxide 36.7 H Anion Gap 6 L BUN 50 H Creatinine 1.8 H Estim Creat Clear Calc 68.8 eGFR 41 L BUN/Creatinine Ratio 28 H Glucose 226 H Calculated Osmolality 312 H Calcium 8.5 Corrected Calcium 9.1 Phosphorus 3.3 Magnesium 2.0 Total Bilirubin 0.8 AST 22 ALT 13 Alkaline Phosphatase 120 H Total Protein 5.8 Albumin 3.2 L Globulin 2.6 Albumin/Globulin Ratio 1.2 Impressions Impression: # Failure to thrive enteral feeding via the NGT ABG Interpretation ABG results: 02/27/25 02/28/25 03/01/25 06:55 04:57 04:39 ABG pH 7.27 L 7.37 D 7.41 ABG pCO2 57 H 48 44 ABG pO2 101 78 L D 69 L ABG HCO3 26 28 H 28 H ABG O2 Saturation 98 95 93 ABG Base Excess -2 2 3 VBG pH VBG pCO2 VBG pO2 VBG Base Excess 03/01/25 03/01/25 03/02/25 13:15 14:52 04:25 ABG pH Cancelled 7.41 7.45 ABG pCO2 Cancelled 45 42 ABG pO2 Cancelled 53 L* 66 L ABG HCO3 Cancelled 28 H 29 H ABG O2 Saturation Cancelled 85 L 92 ABG Base Excess Cancelled 3 5 H VBG pH VBG pCO2 VBG pO2 VBG Base Excess 03/03/25 03/05/25 03/05/25 04:40 16:30 16:55 ABG pH 7.45 Cancelled 7.34 L D ABG pCO2 43 Cancelled 72 H* D ABG pO2 72 L Cancelled 83 ABG HCO3 30 H Cancelled 38 H ABG O2 Saturation 94 Cancelled 95 ABG Base Excess 5 H Cancelled 9 H VBG pH VBG pCO2 VBG pO2 VBG Base Excess 03/05/25 03/06/25 03/06/25 23:36 01:48 05:22 ABG pH 7.37 7.34 L 7.52 H D ABG pCO2 67 H 74 H* 47 D ABG pO2 150 H D 88 D 160 H D ABG HCO3 38 H 40 H 38 H ABG O2 Saturation 99 H 96 100 H ABG Base Excess 10 H 11 H 13 H VBG pH VBG pCO2 VBG pO2 VBG Base Excess 03/06/25 03/07/25 03/07/25 17:10 05:00 14:03 ABG pH 7.46 H ABG pCO2 53 H ABG pO2 65 L D ABG HCO3 38 H ABG O2 Saturation 93 ABG Base Excess 12 H VBG pH 7.50 7.52 VBG pCO2 50 47 VBG pO2 70 H 61 H VBG Base Excess 13 H 14 H 03/09/25 03/09/25 03/09/25 08:17 10:25 17:29 ABG pH 7.25 L D 7.29 L 7.29 L ABG pCO2 93 H* D 85 H* 88 H* ABG pO2 81 L 57 L* D 85 D ABG HCO3 41 H 40 H 43 H ABG O2 Saturation 95 89 L 97 ABG Base Excess 10 H 10 H 12 H VBG pH VBG pCO2 VBG pO2 VBG Base Excess 03/09/25 03/10/25 03/10/25 23:24 07:17 11:25 ABG pH 7.32 L 7.28 L 7.31 L ABG pCO2 78 H* D 90 H* D 81 H* ABG pO2 69 L 47 L* D 63 L ABG HCO3 40 H 43 H 41 H ABG O2 Saturation 94 80 L 93 ABG Base Excess 11 H 12 H 11 H VBG pH VBG pCO2 VBG pO2 VBG Base Excess 03/10/25 03/11/25 03/12/25 16:56 04:19 04:42 ABG pH 7.40 7.48 H 7.43 ABG pCO2 66 H D 54 H D 59 H ABG pO2 68 L 67 L 77 L ABG HCO3 41 H 40 H 39 H ABG O2 Saturation 94 94 96 ABG Base Excess 13 H 15 H 12 H VBG pH VBG pCO2 VBG pO2 VBG Base Excess 03/13/25 03/14/25 03/15/25 04:32 04:25 04:37 ABG pH 7.47 H 7.46 H 7.41 ABG pCO2 53 H 50 H 56 H ABG pO2 60 L 70 L 69 L ABG HCO3 38 H 36 H 35 H ABG O2 Saturation 93 95 95 ABG Base Excess 13 H 10 H 9 H VBG pH VBG pCO2 VBG pO2 VBG Base Excess 03/16/25 03/16/25 03/17/25 04:54 09:53 04:35 ABG pH 7.45 7.48 H 7.47 H ABG pCO2 51 H 49 H 53 H ABG pO2 68 L 34 L* D 87 D ABG HCO3 35 H 37 H 38 H ABG O2 Saturation 95 67 L 97 ABG Base Excess 10 H 12 H 13 H VBG pH VBG pCO2 VBG pO2 VBG Base Excess 03/18/25 03/19/25 03/26/25 04:26 05:00 08:20 ABG pH 7.44 7.45 7.46 H ABG pCO2 57 H 55 H 54 H ABG pO2 107 D 73 L D 79 L ABG HCO3 38 H 38 H 38 H ABG O2 Saturation 99 H 96 97 ABG Base Excess 12 H 12 H 12 H VBG pH VBG pCO2 VBG pO2 VBG Base Excess Assessment & Plan A&P Narrative 64-year-old male with significant past medical history of hypertension, diabetes mellitus, A-fib was admitted to the ICU on 02/27/2025 after coming in with altered mental status and shortness of breath, intubated for acute hypoxic respiratory failure and had suspected obesity hypoventilation syndrome/obstructive sleep apnea/pneumonia and acute kidney injury. He was extubated on 03/03 and downgraded then re-intubated on 03/06 due to confusion and tachypneia. He was then extubated and downgraded to the floor on 03/07. On 03/10, patient again had decreased mentation on the BiPAP so was reintubated and upgraded. Cardiology has been consulted for suspected heart failure. #Right congestive heart failure with preserved EF. #Severe BASIA/OHS. #Hypernatremia. Echo on this admission showed poor quality images secondary to the patient's body habitus so was a technically limited study. Suspect chronic right heart failure in the setting of chronic obesity hypoventilation syndrome and obstructive sleep apnea. Currently appears to be more pulmonary component to respiratory failure than cardiac. Requiring ventilation support. -Echo 02/27/25: IVC appears to be dilated and also estimated RVSP also appears to be at least moderately elevated at 55 mmHg. 03/14/25: Will hold dirutics for now , he was given IV fluids yesterday. 03/15/25 : [place] catheter was placed by ICU team which showed PA pressure of more than 30s and wedge pressure was also high . started him on bumex drip . will continue the albumin . he is getting his peg tube today 03/16/25: ICU team tried another [place] catheter today which showed RA pressure of 25, PA pressure of 38, PCWP of 23. Plan is to continue Bumex for him. Cr stable at 2.5 03/17/2025: Net fluid balance -3350 cc. ICU team held Bumex due to significant electrolyte abnormalities, potassium 2.7. Once repleted Bumex drip will be resumed. Continue current management and monitor patient. 03/18/2025: net fluid balance -1650 , he received 1 dose of diamox yesterday. will continue to diures, he is off ventillor in blowby with PRN ventillator when he gets tired. 03/19/2025: no acute overnight event.Balance of -950 . ICU team put a swan catheter which showed he is adequately diressed for now, so bumex on hold for now. pending pegtube placement, its been difficult to do the procedure consedering his Rouxy history. Plan: 03/20/2025: Will hold dirutics for now, he was given IV LR and FWF via NG for hypernatremia. 03/21/2025: no acute overnight event. free water flushes increase today for hypernatremia . Xarelto resumed . bumex on hold ,Dr Doty recommending jejunostomy placement. #Atrial fibrillation, rate controlled. Patient notes positive history of afib. He had previously been on metoprolol succinate 100 mg BID. Currently appears rate-controlled in the 100s. CHADS-VASc score 4 Plan: - Metoprolol on hold in setting of right heart failure . -Resume Xarelto. -Continue amiodarone 200 mg qday. -Keep potassium >4.0 and mag >2.0. Rest of conditions to continue current management per primary team: #Acute hypoxic respiratory failure s/p tracheostomy. #Morbid obesity. #Community acquired pneumonia. #Elevated LFTs, resolved. #Hyperbilirubinemia, resolved. #History of type 2 diabetes. #Lactic acidosis, resolved. #KEN[place] on CKD. 03/22/2025: Patient has tracheostomy inplace and is unable to communicate much Telemetry reviewed and rest of the vital signs including the heart rate appears to be stable. Labs showed that the patient still continues to have hyponatremia at 150 and also has elevated creatinine at 2.6 and a BUN of 66. Patient is on renal water flushes for the hyponatremia and creatinine continues to improve and baseline creatinine appears to be around 2.0 Recommend to continue with free water flushes for now. Patient is morbidly obese with multiple comorbidities as mentioned below and overall prognosis appears to be poor Primary team to discuss with the family regarding goals of care. Management of rest of the medical conditions as per primary team and other consultants. Thank you for the consult and allowing me to participate in the care of the patient. Cardiology will continue to follow. Kobe Barahona M.D. Interventional Cardiology Time Spent With Patient Time: Total time spent is greater than 50% in coordination of care (as documented) at patient's floor/unit and/or counseling patient:
--- NOTE | 2025-03-27 22:00 | XR_ITS ---
Examination: AP chest single view Technique AP portable semiupright chest single view Date and time: March 27, 2025 10:16 PM Comparison March 20, 2025 INDICATIONS: Post orogastric tube placement FINDINGS: Orogastric tube in stomach satisfactory position Enlarged cardiac contour with pulmonary vascular congestion Tracheostomy tube tip 7.5 cm above nunu Mild pneumonia left base IMPRESSION: Orogastric tube in stomach satisfactory position
[2025-03-28] VITALS (10 sets, daily range): BP systolic 117–149; BP diastolic 82–97; PULSE 52–118; RESP 20–27; TEMP 35.9–36.7; O2SAT 93–100
[2025-03-28] MEDS: INSULIN LISPRO (AdmeLOG) 1 UNIT/0.01 ML UNIT SC ×4 (05:12→23:22)
[2025-03-28 06:46] LABS: Basophils % (Auto) 0 % (0-2.5); Eosinophils # (Auto) 0.4 Thou/mm3 (0.0-0.5); Eosinophils % (Auto) 4 % (0-10); Hematocrit 35.7 % (41.0-53.0); Hemoglobin 10.9 g/dL (13.5-16.0); Immature Granulocytes % (Auto) 1 % (0-0); Immature Granulocytes Auto 0.05 Thou/mm3 (0.00-0.00); Lymphocytes # (Auto) 0.9 Thou/mm3 (1.0-4.8); Lymphocytes % (Auto) 9 % (10-50); Mean Corpuscular HGB Conc 30.5 g/dl (31.0-37.0); Mean Corpuscular Hemoglobin 28.1 pg (25.0-35.0); Mean Corpuscular Volume 92 fL (80-100); Monocytes # (Auto) 1.2 Thou/mm3 (0.0-0.8); Monocytes % (Auto) 11 % (0-12); Neutrophils # (Auto) 8.1 Thou/mm3 (1.8-7.7); Neutrophils % (Auto) 76 % (37-80); Nucleated Red Blood Cell % 0 /100 WBC (0); Platelet Count 243 Thou/mm3 (140-440); RDW Standard Deviation 49.3 fL (35.1-43.9); Red Blood Count 3.88 Miln/mm3 (4.50-5.90); White Blood Count 10.7 Thou/mm3 (3.8-10.6)
[2025-03-28 07:05] LABS: Alanine Aminotransferase 12 U/L (10-49); Albumin, Serum 3.1 gm/dL (3.4-4.8); Albumin/Globulin Ratio 1.2 (1.2-2.2); Alkaline Phosphatase 126 U/L (46-116); Anion Gap 6 (7-16); Aspartate Amino Transferase 19 U/L (0-34); BUN/Creatinine Ratio 32 Ratio (12-20); Bilirubin,Total 0.6 mg/dL (0.3-1.2); Blood Urea Nitrogen 48 mg/dL (9-23); Calcium 8.4 mg/dL (8.3-10.6); Calcium (Corrected) 9.1 mg/dL (8.5-10.1); Carbon Dioxide 35.7 mMol/L (20.0-31.0); Chloride 103 mMol/L (98-107); Creatinine (Component) 1.5 mg/dL (0.6-1.3); Estimated Creatinine Clearance 82.4 mL/min (>60); Globulin 2.6 gm/dL (2.3-3.5); Glucose 219 mg/dL (74-106); Magnesium 1.9 mg/dL (1.6-2.6); Osmolality,Calculated 308 (275-295); Phosphorous 2.9 mg/dL (2.4-5.1); Sodium 145 mMol/L (136-145); Total Protein 5.7 gm/dL (5.7-8.2); eGFR 51 See Note
[2025-03-28] MEDS: Magnesium Sulfate 1 gm Ivpb 1 GM/100 ML BAG IV (08:06)
--- NOTE | 2025-03-28 09:00 | PC.NURSE ---
Per Dr. Parra, hold PO meds d/t pt pulling out ng tube until further orders.
[2025-03-28] MEDS: INSULIN GLARGINE (Lantus) 5 UNIT/0.05 ML (PER 5 UNITS) 35 UNIT SC (09:27)
[2025-03-28] MEDS: SODIUM CHLORIDE 0.45 % 1,000 ML 125 ML IV (09:32)
--- NOTE | 2025-03-28 09:40 | ESPR_ITS ---
Documentation for date of: 03/28/25 Subjective Subjective Interval history: Mr. Ortega is a 64-year-old male with past medical history of DM2, hypertension, and A-fib Morbid obesity by BMIwas admitted to the ICU on 02/27/2025 after coming to the ED with complaints of altered mental status and shortness of breath. Patient was intubated in the ED therefore most of the history was taken from chart review and from the parents who are at bedside. EMS found the patient on the floor and he was saturating in the 70s even on high flow nasal cannula. Given his hypoxia patient was intubated in the ED. Patient spiked a fever while in the ED and he became hypotensive unresponsive to IV fluids therefore he was placed on vasopressors. During course of hospitalization patient had decreasing kidney function, patient notably edematous and has vascular congestion on x-ray, therefore was treated with Bumex. Despite diuresis therapy, patient kidney function continued to worsen, diuresis positive patient given free water flushes. Patient has had notably low albumin, ICU team recently started patient on albumin but not at the same time as diuretics. Nephrology was consulted due to worsening kidney function. Tracheostomy placed yesterday. Labs today show WBC 12.5, hemoglobin 12.1, platelets 346. Sodium 149, potassium 3.6, chloride 104, bicarb 33.5. BUN 76, creatinine 2.7, EGFR 25. Hemoglobin A1c 7.6%. 03/20/2025: Patient seen and examined in ICU, patient physically remains in ICU, downgraded to telemetry. Patient has not been able to get feeding for the last 3 days, had NG tube placed was started on tube feeds earlier today. Patient sodium of 153 this morning, free water deficit 5 L was started on free water flushes at 100 cc/h by primary team. Patient was given 500 cc IV bolus, diuresis continues to be on hold. Patient continues to be on mechanical ventilation. 03/25/2025: Patient seen and examined at bedside, resting comfortably. Patient remains edematous, appears to have had good response to Diamox. Will give another x 1 Diamox. Sodium 143, potassium 3.9, bicarb 36.3, BUN 50, creatinine 2.2, EGFR 36. Will continue to monitor kidney function. 03/25/2025: Patient seen and examined at bedside, notably uncomfortable. Patient complaining of lower back pain despite pain meds, recommend starting a muscle relaxer. Difficulty measuring patient urinary output, will attempt to place Fuller catheter. Patient had 6.7 L intake due to free water flushes for hypernatremia and tube feeds. Recommended using concentrated tube feeds to reduce total intake. Sodium 147, potassium 3.9, bicarb 39.9, BUN 57, creatinine 1.9, EGFR 39. ABG showed pH 7.46, pCO2 54, pO2 79, bicarb 38. Will give additional Diamox. 03/27/2025: Patient seen and examined at bedside, resting comfortably. Edema has improved. Sodium 147, likely patients new baseline. Potassium 4.3, bicarb 36.7, BUN 50, creatinine 1.8, eGFR 41. Patient had 1.1 L input. WIll give diamox today. 03/28/2025: Patient seen and examined at bedside, resting comfortably. Edema has improved somewhat, although still appears to be fluid overloaded. Patient pulled his G-tube out twice overnight, has not been receiving free water flushes has planned. Primary team planning to hold goals of care conversation today. WBC 10.7, hemoglobin 10.9, sodium 145, potassium 4.0, bicarb 35.7, BUN 48, creatinine 1.5, EGFR 51. Will continue to give Diamox at reduced dosage, every other day. Can start tomorrow, pending goals of care conversation and possible feeding tube placement today. Exam Vital Signs Temp Pulse Resp BP Pulse Ox O2 Del Method O2 Flow Rate 96.7 F L 106 H 20 125/83 93 L Mechanical Ventilation 8 03/28/25 08:00 03/28/25 08:00 03/28/25 08:00 03/28/25 08:00 03/28/25 08:00 03/28/25 08:00 03/28/25 07:27 FiO2 40 03/28/25 08:00 Narrative Exam PE: Gen: Well-developed and well-nourished. Morbidly Obese. HEENT: NCAT, PERRLA, EOMI, MMM, anicteric conjunctivae. CVS: normal S1 and S2. RRR. No M/R/G. Resp: CTA B/L. No rhonchi, rales, crackles or wheezing. Poor lung sounds due to body habitus. Coarse due to ventilator. Abd: soft, non-tender, non-distended. Very edematous pannus. MSK: Good ROM in BUE & BLE. No rash. Diffuse 2+ pitting edema in all extremities, improved. Neuro: CN II-XII grossly intact. Tracheostomy in place. Objective Labs 04/02/25 09:34 04/02/25 09:34 Labs: Laboratory Results - last 24 hr 03/28/25 06:20 WBC 10.7 H RBC 3.88 L Hgb 10.9 L Hct 35.7 L MCV 92 MCH 28.1 MCHC 30.5 L RDW Std Deviation 49.3 H Plt Count 243 Neut % (Auto) 76 Lymph % (Auto) 9 L [place] % (Auto) 11 Eos % (Auto) 4 Baso % (Auto) 0 Neut # (Auto) 8.1 H Lymph # (Auto) 0.9 L [place] # (Auto) 1.2 H Eos # (Auto) 0.4 Baso # (Auto) 0.0 Immature Gran # (Auto) 0.05 H Absolute Nucleated RBC 0.00 Immature Gran % 1 H Nucleated RBC % 0 Sodium 145 Potassium 4.0 Chloride 103 Carbon Dioxide 35.7 H Anion Gap 6 L BUN 48 H Creatinine 1.5 H Estim Creat Clear Calc 82.4 eGFR 51 L BUN/Creatinine Ratio 32 H Glucose 219 H Calculated Osmolality 308 H Calcium 8.4 Corrected Calcium 9.1 Phosphorus 2.9 Magnesium 1.9 Total Bilirubin 0.6 AST 19 ALT 12 Alkaline Phosphatase 126 H Total Protein 5.7 Albumin 3.1 L Globulin 2.6 Albumin/Globulin Ratio 1.2 ABG Interpretation ABG results: 02/27/25 02/28/25 03/01/25 06:55 04:57 04:39 ABG pH 7.27 L 7.37 D 7.41 ABG pCO2 57 H 48 44 ABG pO2 101 78 L D 69 L ABG HCO3 26 28 H 28 H ABG O2 Saturation 98 95 93 ABG Base Excess -2 2 3 VBG pH VBG pCO2 VBG pO2 VBG Base Excess 03/01/25 03/01/25 03/02/25 13:15 14:52 04:25 ABG pH Cancelled 7.41 7.45 ABG pCO2 Cancelled 45 42 ABG pO2 Cancelled 53 L* 66 L ABG HCO3 Cancelled 28 H 29 H ABG O2 Saturation Cancelled 85 L 92 ABG Base Excess Cancelled 3 5 H VBG pH VBG pCO2 VBG pO2 VBG Base Excess 03/03/25 03/05/25 03/05/25 04:40 16:30 16:55 ABG pH 7.45 Cancelled 7.34 L D ABG pCO2 43 Cancelled 72 H* D ABG pO2 72 L Cancelled 83 ABG HCO3 30 H Cancelled 38 H ABG O2 Saturation 94 Cancelled 95 ABG Base Excess 5 H Cancelled 9 H VBG pH VBG pCO2 VBG pO2 VBG Base Excess 03/05/25 03/06/25 03/06/25 23:36 01:48 05:22 ABG pH 7.37 7.34 L 7.52 H D ABG pCO2 67 H 74 H* 47 D ABG pO2 150 H D 88 D 160 H D ABG HCO3 38 H 40 H 38 H ABG O2 Saturation 99 H 96 100 H ABG Base Excess 10 H 11 H 13 H VBG pH VBG pCO2 VBG pO2 VBG Base Excess 03/06/25 03/07/25 03/07/25 17:10 05:00 14:03 ABG pH 7.46 H ABG pCO2 53 H ABG pO2 65 L D ABG HCO3 38 H ABG O2 Saturation 93 ABG Base Excess 12 H VBG pH 7.50 7.52 VBG pCO2 50 47 VBG pO2 70 H 61 H VBG Base Excess 13 H 14 H 03/09/25 03/09/25 03/09/25 08:17 10:25 17:29 ABG pH 7.25 L D 7.29 L 7.29 L ABG pCO2 93 H* D 85 H* 88 H* ABG pO2 81 L 57 L* D 85 D ABG HCO3 41 H 40 H 43 H ABG O2 Saturation 95 89 L 97 ABG Base Excess 10 H 10 H 12 H VBG pH VBG pCO2 VBG pO2 VBG Base Excess 03/09/25 03/10/25 03/10/25 23:24 07:17 11:25 ABG pH 7.32 L 7.28 L 7.31 L ABG pCO2 78 H* D 90 H* D 81 H* ABG pO2 69 L 47 L* D 63 L ABG HCO3 40 H 43 H 41 H ABG O2 Saturation 94 80 L 93 ABG Base Excess 11 H 12 H 11 H VBG pH VBG pCO2 VBG pO2 VBG Base Excess 03/10/25 03/11/25 03/12/25 16:56 04:19 04:42 ABG pH 7.40 7.48 H 7.43 ABG pCO2 66 H D 54 H D 59 H ABG pO2 68 L 67 L 77 L ABG HCO3 41 H 40 H 39 H ABG O2 Saturation 94 94 96 ABG Base Excess 13 H 15 H 12 H VBG pH VBG pCO2 VBG pO2 VBG Base Excess 03/13/25 03/14/25 03/15/25 04:32 04:25 04:37 ABG pH 7.47 H 7.46 H 7.41 ABG pCO2 53 H 50 H 56 H ABG pO2 60 L 70 L 69 L ABG HCO3 38 H 36 H 35 H ABG O2 Saturation 93 95 95 ABG Base Excess 13 H 10 H 9 H VBG pH VBG pCO2 VBG pO2 VBG Base Excess 03/16/25 03/16/25 03/17/25 04:54 09:53 04:35 ABG pH 7.45 7.48 H 7.47 H ABG pCO2 51 H 49 H 53 H ABG pO2 68 L 34 L* D 87 D ABG HCO3 35 H 37 H 38 H ABG O2 Saturation 95 67 L 97 ABG Base Excess 10 H 12 H 13 H VBG pH VBG pCO2 VBG pO2 VBG Base Excess 03/18/25 03/19/25 03/26/25 04:26 05:00 08:20 ABG pH 7.44 7.45 7.46 H ABG pCO2 57 H 55 H 54 H ABG pO2 107 D 73 L D 79 L ABG HCO3 38 H 38 H 38 H ABG O2 Saturation 99 H 96 97 ABG Base Excess 12 H 12 H 12 H VBG pH VBG pCO2 VBG pO2 VBG Base Excess Quality Measures Quality Measures sepsis Current suspected stage: sepsis Possible source: pulmonary Blood cultures ordered: completed in ED Antibiotic ordered: Yes Advance care planning discussed with:: patient Assessment & Plan Assessment Current Active Medications: Generic Name Dose Route Start Last Admin Trade Name Freq PRN Reason Stop Dose Admin Acetaminophen 650 mg 03/23/25 17:36 03/23/25 17:50 Acetaminophen 325 Mg Tablet PO 03/29/25 09:23 650 mg Q4HR PRN Administration fever > 100.4 or Mild Pain 1-3 Hydrocodone Bitart/Acetaminophen 1 tab 03/26/25 07:57 03/26/25 08:33 Hydrocodone/Apap 5/325 Tablet GT 03/31/25 07:56 1 tab Q4HR PRN Administration PAIN Protocol Al Hydrox/Mg Hydrox/Simethicone 30 ml 03/24/25 09:42 Mg Hyd/Al Hyd/Virgilio (Maalox Reg) Susp 30 Ml Udc NG 03/29/25 09:23 Q4HR PRN Heartburn or Upset Stomach Amiodarone HCl 200 mg 03/24/25 09:45 03/27/25 10:05 Amiodarone Hcl 200 Mg Tablet NG 03/31/25 08:59 200 mg QDAY KOURTNEY Administration Amlodipine Besylate 10 mg 03/24/25 09:45 03/27/25 10:05 Amlodipine Besylate 5 Mg Tablet NG 04/19/25 23:34 10 mg DAILY KOURTNEY Administration Ascorbic Acid 500 mg 03/27/25 12:00 03/27/25 20:13 Ascorbic Acid 250 Mg Tablet NG 04/26/25 11:59 500 mg BID KOURTNEY Administration Bumetanide 2 mg 03/17/25 21:00 03/18/25 21:28 Bumetanide Inj 0.25 Mg/Ml Vial 4 Ml IVP 04/16/25 20:59 2 mg BID KOURTNEY Administration Cyclobenzaprine HCl 5 mg 03/26/25 08:25 Cyclobenzaprine 5 Mg Tablet PO 04/25/25 08:24 TID PRN MUSCLE SPASMS Protocol Dextrose 25 ml 03/03/25 08:20 Dextrose 50%-Water Inj 50 Ml Syringe IV 04/02/25 08:19 Q15MIN PRN BG 50-70 responsive npo pt Dextrose 50 ml 03/03/25 08:20 Dextrose 50%-Water Inj 50 Ml Syringe IV 04/02/25 08:19 Q15MIN PRN BG <50 OR BG <70 & pt unresponsive Glucagon 1 mg 03/03/25 08:20 Glucagon Inj 1 Mg Vial IM Q15MIN PRN BG <70, and no IV access Sodium Chloride 1,000 mls @ 125 mls/hr 03/28/25 08:16 03/28/25 09:32 Ns 0.45% IV 04/27/25 08:15 125 mls/hr .Q8H KOURTNEY Administration Insulin Glargine 35 unit 03/28/25 09:00 03/28/25 09:27 Insulin Glargine (Lantus) 5 Unit/0.05 Ml (Per 5 Units) SC 04/27/25 08:59 35 unit QDAY KOURTNEY Administration Insulin Human Lispro 0 unit 03/25/25 12:00 03/28/25 05:12 Insulin Lispro (Admelog) 1 Unit/0.01 Ml Unit SC 04/24/25 11:59 3 unit Q6HR KOURTNEY Administration Protocol Lansoprazole 30 mg 03/23/25 09:30 03/27/25 10:05 Lansoprazole 30 Mg Tab.Rap.Dr NG 04/21/25 08:59 30 mg QDAY KOURTNEY Administration Magnesium Hydroxide 30 ml 03/24/25 09:43 03/25/25 05:17 Milk Of Magnesia Susp 30 Ml Udc NG 03/29/25 09:23 30 ml QDAY PRN Administration CONSTIPATION Multivitamins/Minerals 15 ml 03/27/25 12:00 03/27/25 12:32 Multivitamin 15 Ml Udc NG 04/26/25 11:59 15 ml QDAY KOURTNEY Administration Ondansetron HCl 4 mg 03/05/25 20:46 03/09/25 03:49 Ondansetron Inj 2 Mg/Ml Inj 2 Ml IV 04/04/25 20:45 4 mg Q6HR PRN Administration NAUSEA OR VOMITING Protocol Rivaroxaban 20 mg 03/23/25 17:30 03/27/25 17:10 Rivaroxaban 10 Mg Tablet GT 04/03/25 17:29 20 mg WSUPPER KOURTNEY Administration Zinc Sulfate 220 mg 03/27/25 12:00 03/27/25 12:32 Zinc Sulfate 220 Mg Capsule NG 04/10/25 11:59 220 mg QDAY KOURTNEY Administration Plan 64-year-old male with past medical history of DM2, hypertension, and A-fib was admitted to the ICU on 02/27/2025 for acute hypoxic respiratory failure and altered mental status requiring intubation. Nephrology consulted for acute renal failure with worsening kidney function. #KENIA #Metabolic alkalosis #Hypernatremia, Hyper-osmolar Patient has no history of chronic kidney disease. Patient developed KENIA with worsening renal function during hospitalization. Initially suspected of cardiorenal syndrome, was treated with IV Bumex. Despite diuretic therapy patient kidney function continued to worsen. Suspect currently in ATN. Bumex was held, patient started on free water flushes. Patient continued to have worsening kidney function. Patient started on albumin today. Patient appears intravascularly depleted and intravascularly fluid overloaded. Ultrasound taken, unable to visualize kidneys. Urinalysis done showing trace blood, trace protein, 3+ uric acid crystals, 2+ bacteria. Urine total protein 99, urine creatinine 104. Nephrotic proteinuria ruled out, suspect KENIA related to right heart failure in the setting of elevated cardiac wedge pressure. [place] catheter shows patient is not fluid overloaded. Patient is continue to get free water flushes, unable to accurately track ins and outs due to difficulties with catheter. Currently being weighed daily Patient had good response to Diamox, will give another x 1 today. Continue holding Bumex, sodium has normalized, monitor closely. Patient remains mildly hypernatremic. Continuing free water flushes. Will try to place Fuller catheter for better urinary output measurement. Have been unable to measure urinary output. Patient pulled his G-tube out twice, has not been receiving free water flushes as planned. Primary team told goals of care conversation today. Diamox has been effective in improving renal function and alkalosis, may give reduced dosage every other day, will start tomorrow. -Free water flushes 100 cc/h -Avoid nephrotoxic agent -Renally dose medication -Monitor daily labs -Continue holding diuresis -Concentrate tube feeds #Acute encephalopathy #Right diastolic CHF #Hx of A-fib #Acute on chronic hypoxic and hypercapnic respiratory failure #Obesity hypoventilation syndrome and obstructive sleep apnea #Community-acquired pneumonia, Enterobacter [place] #Morbid obesity #DM2 #Community-acquired pneumonia, Enterobacter cloacoe Management as per primary team Thank you for allowing us to participate in the care of this patient. Management discussed with attending Dr. Gannon. Ainl Rodriguez MD PGY?1 Attending Provider Attestation/Addendum Patient seen and examined with resident physician Dr. Campos. Note reviewed, agree with findings and recommendations.
--- NOTE | 2025-03-28 09:52 | ESPR_ITS ---
Documentation for date of: 03/28/25 Subjective Subjective Interval history: Patient examined at bedside today. No acute overnight events. Will have hospice agency come speak with family and him at 12. Patient appears to express decision-making capacity, and reports that he wants to be transferred for possible PEG or jejunostomy. No other complaints at this time. Exam Vital Signs Temp Pulse Resp BP Pulse Ox O2 Del Method O2 Flow Rate 96.7 F L 106 H 20 125/83 93 L Mechanical Ventilation 8 03/28/25 08:00 03/28/25 08:00 03/28/25 08:00 03/28/25 08:00 03/28/25 08:00 03/28/25 08:00 03/28/25 07:27 FiO2 40 03/28/25 08:00 Narrative Exam General: AAOx3, in mild distress, severely morbidly obese HEENT: Dry mucous membranes, conjunctiva clear, EOMI, PERRLA, trachestomy Cardiovascular: Ejection systolic murmur, radial pulses +2 bilat, irregularly irregular, Pulmonary: FiO2 40, Rate 10, PEEP 8, TV 420, on blow-by GI: No tenderness to light or deep palpitation, no guarding, rigidity, rebound tenderness or distension Extremities: +2 Pitting edema in lower extremities bilaterally, dorsalis pedis pulses +2 bilaterally Back: [place] present Neuro: AAOx3, no focal motor or sensory deficits in the UE or LE bilat Objective Labs 03/29/25 05:28 03/29/25 05:28 Labs: Laboratory Results - last 24 hr 03/28/25 06:20 WBC 10.7 H RBC 3.88 L Hgb 10.9 L Hct 35.7 L MCV 92 MCH 28.1 MCHC 30.5 L RDW Std Deviation 49.3 H Plt Count 243 Neut % (Auto) 76 Lymph % (Auto) 9 L Stearns % (Auto) 11 Eos % (Auto) 4 Baso % (Auto) 0 Neut # (Auto) 8.1 H Lymph # (Auto) 0.9 L Stearns # (Auto) 1.2 H Eos # (Auto) 0.4 Baso # (Auto) 0.0 Immature Gran # (Auto) 0.05 H Absolute Nucleated RBC 0.00 Immature Gran % 1 H Nucleated RBC % 0 Sodium 145 Potassium 4.0 Chloride 103 Carbon Dioxide 35.7 H Anion Gap 6 L BUN 48 H Creatinine 1.5 H Estim Creat Clear Calc 82.4 eGFR 51 L BUN/Creatinine Ratio 32 H Glucose 219 H Calculated Osmolality 308 H Calcium 8.4 Corrected Calcium 9.1 Phosphorus 2.9 Magnesium 1.9 Total Bilirubin 0.6 AST 19 ALT 12 Alkaline Phosphatase 126 H Total Protein 5.7 Albumin 3.1 L Globulin 2.6 Albumin/Globulin Ratio 1.2 ABG Interpretation ABG results: 02/27/25 02/28/25 03/01/25 06:55 04:57 04:39 ABG pH 7.27 L 7.37 D 7.41 ABG pCO2 57 H 48 44 ABG pO2 101 78 L D 69 L ABG HCO3 26 28 H 28 H ABG O2 Saturation 98 95 93 ABG Base Excess -2 2 3 VBG pH VBG pCO2 VBG pO2 VBG Base Excess 03/01/25 03/01/25 03/02/25 13:15 14:52 04:25 ABG pH Cancelled 7.41 7.45 ABG pCO2 Cancelled 45 42 ABG pO2 Cancelled 53 L* 66 L ABG HCO3 Cancelled 28 H 29 H ABG O2 Saturation Cancelled 85 L 92 ABG Base Excess Cancelled 3 5 H VBG pH VBG pCO2 VBG pO2 VBG Base Excess 03/03/25 03/05/25 03/05/25 04:40 16:30 16:55 ABG pH 7.45 Cancelled 7.34 L D ABG pCO2 43 Cancelled 72 H* D ABG pO2 72 L Cancelled 83 ABG HCO3 30 H Cancelled 38 H ABG O2 Saturation 94 Cancelled 95 ABG Base Excess 5 H Cancelled 9 H VBG pH VBG pCO2 VBG pO2 VBG Base Excess 03/05/25 03/06/25 03/06/25 23:36 01:48 05:22 ABG pH 7.37 7.34 L 7.52 H D ABG pCO2 67 H 74 H* 47 D ABG pO2 150 H D 88 D 160 H D ABG HCO3 38 H 40 H 38 H ABG O2 Saturation 99 H 96 100 H ABG Base Excess 10 H 11 H 13 H VBG pH VBG pCO2 VBG pO2 VBG Base Excess 03/06/25 03/07/25 03/07/25 17:10 05:00 14:03 ABG pH 7.46 H ABG pCO2 53 H ABG pO2 65 L D ABG HCO3 38 H ABG O2 Saturation 93 ABG Base Excess 12 H VBG pH 7.50 7.52 VBG pCO2 50 47 VBG pO2 70 H 61 H VBG Base Excess 13 H 14 H 03/09/25 03/09/25 03/09/25 08:17 10:25 17:29 ABG pH 7.25 L D 7.29 L 7.29 L ABG pCO2 93 H* D 85 H* 88 H* ABG pO2 81 L 57 L* D 85 D ABG HCO3 41 H 40 H 43 H ABG O2 Saturation 95 89 L 97 ABG Base Excess 10 H 10 H 12 H VBG pH VBG pCO2 VBG pO2 VBG Base Excess 03/09/25 03/10/25 03/10/25 23:24 07:17 11:25 ABG pH 7.32 L 7.28 L 7.31 L ABG pCO2 78 H* D 90 H* D 81 H* ABG pO2 69 L 47 L* D 63 L ABG HCO3 40 H 43 H 41 H ABG O2 Saturation 94 80 L 93 ABG Base Excess 11 H 12 H 11 H VBG pH VBG pCO2 VBG pO2 VBG Base Excess 03/10/25 03/11/25 03/12/25 16:56 04:19 04:42 ABG pH 7.40 7.48 H 7.43 ABG pCO2 66 H D 54 H D 59 H ABG pO2 68 L 67 L 77 L ABG HCO3 41 H 40 H 39 H ABG O2 Saturation 94 94 96 ABG Base Excess 13 H 15 H 12 H VBG pH VBG pCO2 VBG pO2 VBG Base Excess 03/13/25 03/14/25 03/15/25 04:32 04:25 04:37 ABG pH 7.47 H 7.46 H 7.41 ABG pCO2 53 H 50 H 56 H ABG pO2 60 L 70 L 69 L ABG HCO3 38 H 36 H 35 H ABG O2 Saturation 93 95 95 ABG Base Excess 13 H 10 H 9 H VBG pH VBG pCO2 VBG pO2 VBG Base Excess 03/16/25 03/16/25 03/17/25 04:54 09:53 04:35 ABG pH 7.45 7.48 H 7.47 H ABG pCO2 51 H 49 H 53 H ABG pO2 68 L 34 L* D 87 D ABG HCO3 35 H 37 H 38 H ABG O2 Saturation 95 67 L 97 ABG Base Excess 10 H 12 H 13 H VBG pH VBG pCO2 VBG pO2 VBG Base Excess 03/18/25 03/19/25 03/26/25 04:26 05:00 08:20 ABG pH 7.44 7.45 7.46 H ABG pCO2 57 H 55 H 54 H ABG pO2 107 D 73 L D 79 L ABG HCO3 38 H 38 H 38 H ABG O2 Saturation 99 H 96 97 ABG Base Excess 12 H 12 H 12 H VBG pH VBG pCO2 VBG pO2 VBG Base Excess Quality Measures Quality Measures sepsis Current suspected stage: ruled out Possible source: pulmonary Blood cultures ordered: completed in ED Antibiotic ordered: No Advance care planning discussed with:: patient Assessment & Plan Assessment Current Active Medications: Generic Name Dose Route Start Last Admin Trade Name Freq PRN Reason Stop Dose Admin Acetaminophen 650 mg 03/23/25 17:36 03/23/25 17:50 Acetaminophen 325 Mg Tablet PO 03/29/25 09:23 650 mg Q4HR PRN Administration fever > 100.4 or Mild Pain 1-3 Hydrocodone Bitart/Acetaminophen 1 tab 03/26/25 07:57 03/26/25 08:33 Hydrocodone/Apap 5/325 Tablet GT 03/31/25 07:56 1 tab Q4HR PRN Administration PAIN Protocol Al Hydrox/Mg Hydrox/Simethicone 30 ml 03/24/25 09:42 Mg Hyd/Al Hyd/Virgilio (Maalox Reg) Susp 30 Ml Udc NG 03/29/25 09:23 Q4HR PRN Heartburn or Upset Stomach Amiodarone HCl 200 mg 03/24/25 09:45 03/27/25 10:05 Amiodarone Hcl 200 Mg Tablet NG 03/31/25 08:59 200 mg QDAY KOURTNEY Administration Amlodipine Besylate 10 mg 03/24/25 09:45 03/27/25 10:05 Amlodipine Besylate 5 Mg Tablet NG 04/19/25 23:34 10 mg DAILY KOURTNEY Administration Ascorbic Acid 500 mg 03/27/25 12:00 03/27/25 20:13 Ascorbic Acid 250 Mg Tablet NG 04/26/25 11:59 500 mg BID KOURTNEY Administration Bumetanide 2 mg 03/17/25 21:00 03/18/25 21:28 Bumetanide Inj 0.25 Mg/Ml Vial 4 Ml IVP 04/16/25 20:59 2 mg BID KOURTNEY Administration Cyclobenzaprine HCl 5 mg 03/26/25 08:25 Cyclobenzaprine 5 Mg Tablet PO 04/25/25 08:24 TID PRN MUSCLE SPASMS Protocol Dextrose 25 ml 03/03/25 08:20 Dextrose 50%-Water Inj 50 Ml Syringe IV 04/02/25 08:19 Q15MIN PRN BG 50-70 responsive npo pt Dextrose 50 ml 03/03/25 08:20 Dextrose 50%-Water Inj 50 Ml Syringe IV 04/02/25 08:19 Q15MIN PRN BG <50 OR BG <70 & pt unresponsive Glucagon 1 mg 03/03/25 08:20 Glucagon Inj 1 Mg Vial IM Q15MIN PRN BG <70, and no IV access Insulin Glargine 35 unit 03/28/25 09:00 03/28/25 09:27 Insulin Glargine (Lantus) 5 Unit/0.05 Ml (Per 5 Units) SC 04/27/25 08:59 35 unit QDAY KOURTNEY Administration Insulin Human Lispro 0 unit 03/25/25 12:00 03/28/25 05:12 Insulin Lispro (Admelog) 1 Unit/0.01 Ml Unit SC 04/24/25 11:59 3 unit Q6HR KOURTNEY Administration Protocol Lansoprazole 30 mg 03/23/25 09:30 03/27/25 10:05 Lansoprazole 30 Mg Tab.Rap. NG 04/21/25 08:59 30 mg QDAY KOURTNEY Administration Magnesium Hydroxide 30 ml 03/24/25 09:43 03/25/25 05:17 Milk Of Magnesia Susp 30 Ml Udc NG 03/29/25 09:23 30 ml QDAY PRN Administration CONSTIPATION Multivitamins/Minerals 15 ml 03/27/25 12:00 03/27/25 12:32 Multivitamin 15 Ml Udc NG 04/26/25 11:59 15 ml QDAY KOURTNEY Administration Ondansetron HCl 4 mg 03/05/25 20:46 03/09/25 03:49 Ondansetron Inj 2 Mg/Ml Inj 2 Ml IV 05/22/25 20:45 4 mg Q6HR PRN Administration NAUSEA OR VOMITING Protocol Rivaroxaban 20 mg 03/23/25 17:30 03/27/25 17:10 Rivaroxaban 10 Mg Tablet GT 04/03/25 17:29 20 mg WSUPPER KOURTNEY Administration Zinc Sulfate 220 mg 03/27/25 12:00 03/27/25 12:32 Zinc Sulfate 220 Mg Capsule NG 04/10/25 11:59 220 mg QDAY KOURTNEY Administration Plan Assessment 64-year-old male with past medical history of DM2, hypertension, A-fib, and Jehova's witness was admitted to the ICU on 02/27/2025 for shock and acute hypoxic respiratory failure. We had goals of care conversation with family, they will need time to decide if they will decide on hospice or IR Jejunostomy. Hospice to discuss with patient's parents later today. Initiating transfer for higher level of care at this time for Jejunostomy. 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 NG placement lost, unable to replace. DR. Doty consulted and will re-insert NG tube. General surgery, IR unable to do J- tube given history of daniel-en-y gastric bypass. Patient would benefit from TPN/PPN. Resumed tube feeds via NG tube Glucerna IR unable to put in PICC line today for TPN Continues to be on blow-by. Did not tolerate PMS valve, as per speech therapist patient will need time to adjust further tracheostomy before the trial of PNS. Will reevaluate if the patient tolerated the PMS we will do another session of speech evaluation, the patient unable to perform the speech evaluation we will transfer the patient to higher level of care for placement of PEG tube versus duodenojejunostomy. Patient will work with speech therapy to see if patient's dysphagia improves Patient will likely fail, and also will likely require tracheostomy due to respiratory failure Patient will need IR or surgical jejunostomy or PEG placement due to history of Daniel-en-Y Patient appears to display decision-making capacity, and expresses wanting to be transferred for jejunostomy At this time we will hold off on hospice and initiate transfer orders Pt continues to take NG tube out, will place soft restraints at this time. Pt is complying with directions at this time and is agreeable to NG tube placement Plan: ? 2Cal RN via NG tube, 320 cc every 2 hours for water flushes ? Multivitamin ?Initiated transfer for higher level of care for PEG placement or jejunostomy #Right diastolic CHF, improved Echo could not visualize all chambers with limited ability to determine patient's ejection fraction. Given body habitus, history of obstructive sleep apnea and obesity hypoventilation syndrome, right heart failure suspected. Lower pedal edema likely combination of heart failure and third spacing. Swanz Mary 03/15 showed elevated RAP 25 PAP 38 PCWP 23. Lovely Mary 03/16/2025 PCWP 9 (=17-8) Lovely Mary 03/19/2025: RAP 8, PAP 27, PCWP 7 Dry weight: 197.9 Dry BNP 135 High cardiac output Continuing water flushes at this time at 100 cc an hour, will have to do body weights to assess for urine output as patient does not have Fuller or condom catheter at this time His weight today is 201 kg Consult with nephro and cardio if we need diuresis Plan: ? Cardiology consulted, appreciate recs ? Continuing to hold Bumex - Daily weights - Strict I&O #Hx of A-fib [id number] score of 3 points indicating 3.2% risk of stroke per year HAS-BLED: 0 Plan: - Continue PO amiodarone 200 mg qday with small sips of water ? Potassium and magnesium above 4 and 2 respectively - Resumed Xarelto ? Telemetry #Acute on chronic hypoxic and hypercapnic respiratory failure #Obesity hypoventilation syndrome and obstructive sleep apnea #Community-acquired pneumonia, Enterobacter Cl[place] #Tracheostomy Patient was intubated on 02/27/2025, extubated 03/03/2025. Reintubated on 03/06/2025 and extubated 03/07/2025. Reintubated 03/10/2025 for hypercapnic encephalopathy Tracheostomy tube placed 03/15 [place] 03/19/2025 PEEP 8, RR 10, FiO2 40, TV 420 Blow-by during the day, ventilation at night Plan: ? Ventilatory support at bedtime, blow-by during the day. - Continue vent, wean as tolerated #KENIA improving #Hypokalemia #Hypernatremia #Metabolic alkalosis Pre-renal from cardiorenal and edema in the setting of third spacing, low albumin. Bumex drip discontinued. Right heart cath shows CVP 8, shows appropriate diuresis, however patient will need some fluid at this time Unable to assess urine output as the penile area is retracted, there is also a wound from the pure wick during his stay, the patient is immobile. Will continue to monitor his intake, at this time his on water flushes 100 mL/h in addition to his 65 mL/h tube feed. Will decrease water flushes as seen with we reached to goal of sodium level. Creatinine 1.5 today Plan: - Nephrology following, Dr. Gannon, appreciate recommendations ? Water flushes 320 cc every 2 hours for water flushes #Hypernatremia, Hyper-osmolar Sodium 145 today Plan: ? 320 cc every 2 hours for water flushes ? Trend with CMP #Decubitus ulcer Patient will likely have worsening of this ulcer, it is not great for yet at this point however due to patient's immobility we can anticipate this will worsen Plan: ? Monitor as patient is refusing care at this time ? Monitor for signs of infection ? Wound care ? Wound care vitamins including zinc, multivitamin and vitamin C #Morbid obesity #DM2 A1C 7.6 on 03/05/2025 Patient has a BMI of 79.5 Plan: - ISS scale 2 - Hypoglycemia protocol ordered ? 35 units of Lantus #Normocytic Anemia likely secondary to anemia of chronic disease given normal MCV. No acute intervention, continue to monitor #Leukocytosis, resolved #Enterobacter cloacoe pneumonia, resolved. Finished Rocephin (03/06/2025) - Cefepime 03/18/2025, completed #Acute encephalopathy, resolved #Health Maintenance Disposition: Telemetry DVT prophylaxis: Xarelto GI prophylaxis: Protonix Diet: NG tube feeds with 2Cal with 320 cc every 2 hours for water flushes CODE STATUS: Full Patient seen and care discussed with my attending physician, Dr. Samina Shields, PGY-1 Attending Provider Attestation/Addendum I have examined the patient, reviewed labs and imaging findings, discussed the case with the resident(s), and reviewed entered orders. I agree with the plan of care as outlined in this note, with these additional summaries/recommendations: Patient seen at bedside. No acute overnight events. There has been ongoing goals of care discussions with patient and family. Patient appears alert today but unable to speak secondary to tracheostomy. He was able to follow simple command of writing 1, 2, and 3 on a piece of paper when instructed. Patient intermittently appears to have capacity to make decisions at times although communication is very difficult. Patient also appears more confused later in the day likely secondary to CO2 retention. For these reasons, patient's parents have been involved in decision making capacity. Patient and family have been deciding on on hospice/comfort care versus transfer to a higher level of care. At this time the biggest issue is patient's inability to eat. He has had an extended course of artificial nutrition through [facility] although long-term nutrition has been an ongoing discussion. PEG tube placement was attempted in house although it was not able to be completed by gastroenterology secondary to previous Daniel and Y gastrojejunostomy. For this reason we have informed transfer nurse to initiate transfer for IR jejunostomy placement. See residents note for additional details and management. Repeat hematology and chemistry panel in AM. Continue wound care as tolerated. Dr. Samina MD
--- NOTE | 2025-03-28 11:38 | XR_ITS ---
Examination: AP chest single view Technique one AP portable semiupright chest single view Date and time: March 28, 2025 1205 hours Comparison March 27, 2025 INDICATIONS: Reposition orogastric tube today. FINDINGS: Orogastric tube coiled in the distal half of the esophagus Enlarged cardiac contour with prominent vascular congestion Tracheostomy tube tip 6.9 cm above nunu IMPRESSION: Remove the orogastric tube completely and reinsert
--- NOTE | 2025-03-28 11:51 | PC.SS ---
SS called dad this morning but was only able to leave voicemail. SS left message remind dad Hospice meeting is today at 12pm. SS called [employer] financial services agent who will reach out to dad to assist with applying for Medical for pt.
--- NOTE | 2025-03-28 12:26 | PC.SS ---
SS was informed by Nadira from [facility] she met with dad and he is agreeable for Hospice Services but is unable to care for pt at home. SS attempted to call Dad but was only able to leave message.
--- NOTE | 2025-03-28 13:57 | XR_ITS ---
Examination: AP chest single view TECHNIQUE: Sitting AP portable chest single view Date and time: March 28, 2025 1409 hours Comparison March 28, 2025 INDICATIONS: Post orogastric tube placement. FINDINGS: Orogastric tube in the stomach satisfactory position Mild enlargement cardiac contour Pneumonia left base Tracheostomy tube tip 7 cm above nunu IMPRESSION: Orogastric tube in stomach satisfactory position
--- NOTE | 2025-03-28 14:09 | ESPR_ITS ---
<Statement entered by Lenora John MD - 03/29/25 07:46> I personally examined the patient evaluated patient is having issues with the NG tube placement clinically stable A-fib rate controlled well awaiting for the placement evaluated patient with resident physician treatment plan recommendations as documented agree with the treatment plan recommendation as documented by PGY 3 Documentation for date of: 03/28/25 Subjective Subjective Interval history: patient examined bedside this morning , no acute overnight event , saturating well in blow by . Exam Vital Signs Temp Pulse Resp BP Pulse Ox O2 Del Method O2 Flow Rate 97.0 F 108 H 21 H 117/97 H 98 Blow-by 7 03/28/25 12:00 03/28/25 12:00 03/28/25 12:00 03/28/25 12:00 03/28/25 12:00 03/28/25 12:00 03/28/25 12:00 FiO2 40 03/28/25 08:00 Narrative Exam Gen: Well-developed and well-nourished morbidly obese male. HEENT: NCAT, PERRLA, EOMI, MMM, anicteric conjunctivae, tracheostomy in place. CVS: Decreased heart sounds, normal S1 and S2. RRR. No M/R/G. Resp: Decreased breath sounds B/L. No rhonchi, rales, crackles or wheezing. Abd: soft, morbidly obese, non-tender, non-distended. BS+ in all 4 quadrants. Pitting edema over bilateral flanks and sides. MSK: Good ROM in BUE & BLE. 2+ pitting edema BLE. Neuro: Limited exam due to medical condition. Objective Labs 03/28/25 06:20 03/28/25 06:20 Labs: Laboratory Results - last 24 hr 03/28/25 06:20 WBC 10.7 H RBC 3.88 L Hgb 10.9 L Hct 35.7 L MCV 92 MCH 28.1 MCHC 30.5 L RDW Std Deviation 49.3 H Plt Count 243 Neut % (Auto) 76 Lymph % (Auto) 9 L [place] % (Auto) 11 Eos % (Auto) 4 Baso % (Auto) 0 Neut # (Auto) 8.1 H Lymph # (Auto) 0.9 L [place] # (Auto) 1.2 H Eos # (Auto) 0.4 Baso # (Auto) 0.0 Immature Gran # (Auto) 0.05 H Absolute Nucleated RBC 0.00 Immature Gran % 1 H Nucleated RBC % 0 Sodium 145 Potassium 4.0 Chloride 103 Carbon Dioxide 35.7 H Anion Gap 6 L BUN 48 H Creatinine 1.5 H Estim Creat Clear Calc 82.4 eGFR 51 L BUN/Creatinine Ratio 32 H Glucose 219 H Calculated Osmolality 308 H Calcium 8.4 Corrected Calcium 9.1 Phosphorus 2.9 Magnesium 1.9 Total Bilirubin 0.6 AST 19 ALT 12 Alkaline Phosphatase 126 H Total Protein 5.7 Albumin 3.1 L Globulin 2.6 Albumin/Globulin Ratio 1.2 ABG Interpretation ABG results: 02/27/25 02/28/25 03/01/25 06:55 04:57 04:39 ABG pH 7.27 L 7.37 D 7.41 ABG pCO2 57 H 48 44 ABG pO2 101 78 L D 69 L ABG HCO3 26 28 H 28 H ABG O2 Saturation 98 95 93 ABG Base Excess -2 2 3 VBG pH VBG pCO2 VBG pO2 VBG Base Excess 03/01/25 03/01/25 03/02/25 13:15 14:52 04:25 ABG pH Cancelled 7.41 7.45 ABG pCO2 Cancelled 45 42 ABG pO2 Cancelled 53 L* 66 L ABG HCO3 Cancelled 28 H 29 H ABG O2 Saturation Cancelled 85 L 92 ABG Base Excess Cancelled 3 5 H VBG pH VBG pCO2 VBG pO2 VBG Base Excess 03/03/25 03/05/25 03/05/25 04:40 16:30 16:55 ABG pH 7.45 Cancelled 7.34 L D ABG pCO2 43 Cancelled 72 H* D ABG pO2 72 L Cancelled 83 ABG HCO3 30 H Cancelled 38 H ABG O2 Saturation 94 Cancelled 95 ABG Base Excess 5 H Cancelled 9 H VBG pH VBG pCO2 VBG pO2 VBG Base Excess 03/05/25 03/06/25 03/06/25 23:36 01:48 05:22 ABG pH 7.37 7.34 L 7.52 H D ABG pCO2 67 H 74 H* 47 D ABG pO2 150 H D 88 D 160 H D ABG HCO3 38 H 40 H 38 H ABG O2 Saturation 99 H 96 100 H ABG Base Excess 10 H 11 H 13 H VBG pH VBG pCO2 VBG pO2 VBG Base Excess 03/06/25 03/07/25 03/07/25 17:10 05:00 14:03 ABG pH 7.46 H ABG pCO2 53 H ABG pO2 65 L D ABG HCO3 38 H ABG O2 Saturation 93 ABG Base Excess 12 H VBG pH 7.50 7.52 VBG pCO2 50 47 VBG pO2 70 H 61 H VBG Base Excess 13 H 14 H 03/09/25 03/09/25 03/09/25 08:17 10:25 17:29 ABG pH 7.25 L D 7.29 L 7.29 L ABG pCO2 93 H* D 85 H* 88 H* ABG pO2 81 L 57 L* D 85 D ABG HCO3 41 H 40 H 43 H ABG O2 Saturation 95 89 L 97 ABG Base Excess 10 H 10 H 12 H VBG pH VBG pCO2 VBG pO2 VBG Base Excess 03/09/25 03/10/25 03/10/25 23:24 07:17 11:25 ABG pH 7.32 L 7.28 L 7.31 L ABG pCO2 78 H* D 90 H* D 81 H* ABG pO2 69 L 47 L* D 63 L ABG HCO3 40 H 43 H 41 H ABG O2 Saturation 94 80 L 93 ABG Base Excess 11 H 12 H 11 H VBG pH VBG pCO2 VBG pO2 VBG Base Excess 03/10/25 03/11/25 03/12/25 16:56 04:19 04:42 ABG pH 7.40 7.48 H 7.43 ABG pCO2 66 H D 54 H D 59 H ABG pO2 68 L 67 L 77 L ABG HCO3 41 H 40 H 39 H ABG O2 Saturation 94 94 96 ABG Base Excess 13 H 15 H 12 H VBG pH VBG pCO2 VBG pO2 VBG Base Excess 03/13/25 03/14/25 03/15/25 04:32 04:25 04:37 ABG pH 7.47 H 7.46 H 7.41 ABG pCO2 53 H 50 H 56 H ABG pO2 60 L 70 L 69 L ABG HCO3 38 H 36 H 35 H ABG O2 Saturation 93 95 95 ABG Base Excess 13 H 10 H 9 H VBG pH VBG pCO2 VBG pO2 VBG Base Excess 03/16/25 03/16/25 03/17/25 04:54 09:53 04:35 ABG pH 7.45 7.48 H 7.47 H ABG pCO2 51 H 49 H 53 H ABG pO2 68 L 34 L* D 87 D ABG HCO3 35 H 37 H 38 H ABG O2 Saturation 95 67 L 97 ABG Base Excess 10 H 12 H 13 H VBG pH VBG pCO2 VBG pO2 VBG Base Excess 03/18/25 03/19/25 03/26/25 04:26 05:00 08:20 ABG pH 7.44 7.45 7.46 H ABG pCO2 57 H 55 H 54 H ABG pO2 107 D 73 L D 79 L ABG HCO3 38 H 38 H 38 H ABG O2 Saturation 99 H 96 97 ABG Base Excess 12 H 12 H 12 H VBG pH VBG pCO2 VBG pO2 VBG Base Excess Quality Measures Quality Measures sepsis Current suspected stage: ruled out Possible source: pulmonary Blood cultures ordered: completed in ED Antibiotic ordered: Yes Advance care planning discussed with:: patient Assessment & Plan Assessment Current Active Medications: Generic Name Dose Route Start Last Admin Trade Name Freq PRN Reason Stop Dose Admin Acetaminophen 650 mg 03/23/25 17:36 03/23/25 17:50 Acetaminophen 325 Mg Tablet PO 03/29/25 09:23 650 mg Q4HR PRN Administration fever > 100.4 or Mild Pain 1-3 Hydrocodone Bitart/Acetaminophen 1 tab 03/26/25 07:57 03/26/25 08:33 Hydrocodone/Apap 5/325 Tablet GT 03/31/25 07:56 1 tab Q4HR PRN Administration PAIN Protocol Al Hydrox/Mg Hydrox/Simethicone 30 ml 03/24/25 09:42 Mg Hyd/Al Hyd/Virgilio (Maalox Reg) Susp 30 Ml Udc NG 03/29/25 09:23 Q4HR PRN Heartburn or Upset Stomach Amiodarone HCl 200 mg 03/24/25 09:45 03/28/25 10:51 Amiodarone Hcl 200 Mg Tablet NG 03/31/25 08:59 Not Given QDAY KOURTNEY Amlodipine Besylate 10 mg 03/24/25 09:45 03/28/25 10:51 Amlodipine Besylate 5 Mg Tablet NG 04/19/25 23:34 Not Given DAILY [facility] Ascorbic Acid 500 mg 03/27/25 12:00 03/28/25 10:51 Ascorbic Acid 250 Mg Tablet NG 04/26/25 11:59 Not Given BID [facility] Bumetanide 2 mg 03/17/25 21:00 03/18/25 21:28 Bumetanide Inj 0.25 Mg/Ml Vial 4 Ml IVP 04/16/25 20:59 2 mg BID KOURTNEY Administration Cyclobenzaprine HCl 5 mg 03/26/25 08:25 Cyclobenzaprine 5 Mg Tablet PO 04/25/25 08:24 TID PRN MUSCLE SPASMS Protocol Dextrose 25 ml 03/03/25 08:20 Dextrose 50%-Water Inj 50 Ml Syringe IV 04/02/25 08:19 Q15MIN PRN BG 50-70 responsive npo pt Dextrose 50 ml 03/03/25 08:20 Dextrose 50%-Water Inj 50 Ml Syringe IV 04/02/25 08:19 Q15MIN PRN BG <50 OR BG <70 & pt unresponsive Glucagon 1 mg 03/03/25 08:20 Glucagon Inj 1 Mg Vial IM Q15MIN PRN BG <70, and no IV access Insulin Glargine 35 unit 03/28/25 09:00 03/28/25 09:27 Insulin Glargine (Lantus) 5 Unit/0.05 Ml (Per 5 Units) SC 04/27/25 08:59 35 unit QDAY [facility] Administration Insulin Human Lispro 0 unit 03/25/25 12:00 03/28/25 13:44 Insulin Lispro (Admelog) 1 Unit/0.01 Ml Unit SC 04/24/25 11:59 2 unit Q6HR KOURTNEY Administration Protocol Lansoprazole 30 mg 03/23/25 09:30 03/28/25 10:51 Lansoprazole 30 Mg Tab.Rap.Dr NG 04/21/25 08:59 Not Given QDAY [facility] Magnesium Hydroxide 30 ml 03/24/25 09:43 03/25/25 05:17 Milk Of Magnesia Susp 30 Ml Udc NG 03/29/25 09:23 30 ml QDAY PRN Administration CONSTIPATION Multivitamins/Minerals 15 ml 03/27/25 12:00 03/28/25 10:52 Multivitamin 15 Ml Udc NG 04/26/25 11:59 Not Given QDAY KOURTNEY Ondansetron HCl 4 mg 03/05/25 20:46 03/09/25 03:49 Ondansetron Inj 2 Mg/Ml Inj 2 Ml IV 04/04/25 20:45 4 mg Q6HR PRN Administration NAUSEA OR VOMITING Protocol Rivaroxaban 20 mg 03/23/25 17:30 03/27/25 17:10 Rivaroxaban 10 Mg Tablet GT 04/03/25 17:29 20 mg WSUPPER KOURTNEY Administration Zinc Sulfate 220 mg 03/27/25 12:00 03/28/25 10:52 Zinc Sulfate 220 Mg Capsule NG 04/10/25 11:59 Not Given QDAY KOURTNEY Plan 64-year-old male with significant past medical history of hypertension, diabetes mellitus, A-fib was admitted to the ICU on 02/27/2025 after coming in with altered mental status and shortness of breath, intubated for acute hypoxic respiratory failure and had suspected obesity hypoventilation syndrome/obstructive sleep apnea/pneumonia and acute kidney injury. He was extubated on 03/03 and downgraded then re-intubated on 03/06 due to confusion and tachypneia. He was then extubated and downgraded to the floor on 03/07. On 03/10, patient again had decreased mentation on the BiPAP so was reintubated and upgraded. Cardiology has been consulted for suspected heart failure. #Right congestive heart failure with preserved EF. #Severe BASIA/OHS. Echo on this admission showed poor quality images secondary to the patient's body habitus so was a technically limited study. Suspect chronic right heart failure in the setting of chronic obesity hypoventilation syndrome and obstructive sleep apnea. Currently appears to be more pulmonary component to respiratory failure than cardiac. Requiring ventilation support. -Echo 02/27/25: IVC appears to be dilated and also estimated RVSP also appears to be at least moderately elevated at 55 mmHg. 03/14/25: Will hold dirutics for now , he was given IV fluids yesterday. 03/15/25 : Dell catheter was placed by ICU team which showed PA pressure of more than 30s and wedge pressure was also high . started him on bumex drip . will continue the albumin . he is getting his peg tube today 03/16/25: ICU team tried another Dell catheter today which showed RA pressure of 25, PA pressure of 38, PCWP of 23. Plan is to continue Bumex for him. Cr stable at 2.5 03/17/2025: Net fluid balance -3350 cc. ICU team held Bumex due to significant electrolyte abnormalities, potassium 2.7. Once repleted Bumex drip will be resumed. Continue current management and monitor patient. 03/18/2025: net fluid balance -1650 , he received 1 dose of diamox yesterday. will continue to diures, he is off ventillor in blowby with PRN ventillator when he gets tired. 03/19/2025: no acute overnight event.Balance of -950 . ICU team put a swan catheter which showed he is adequately diressed for now, so bumex on hold for now. pending pegtube placement, its been difficult to do the procedure consedering his Rouxy history. Plan: 03/20/2025: Will hold dirutics for now, he was given IV LR and FWF via NG for hypernatremia. 03/21/2025: no acute overnight event. free water flushes increase today for hypernatremia . Xarelto resumed . bumex on hold ,Dr Doty recommending jejunostomy placement. 03/22/2025: Patient has tracheostomy inplace and is unable to communicate much Telemetry reviewed and rest of the vital signs including the heart rate appears to be stable. Labs showed that the patient still continues to have hyponatremia at 150 and also has elevated creatinine at 2.6 and a BUN of 66. Patient is on renal water flushes for the hyponatremia and creatinine continues to improve and baseline creatinine appears to be around 2.0 Recommend to continue with free water flushes for now. Patient is morbidly obese with multiple comorbidities as mentioned below and overall prognosis appears to be poor Primary team to discuss with the family regarding goals of care. 03/23/2025 Continued on free water flushes, sodium 150 > 149. Renal function showing minor improvement with BUN 63, CR 2.4, EGFR 29. Poor urine output. 2/3+ LE edema noted on exam again. Vitals relatively normal, BP 121/92, HR 98 although spikes of HR 120s noted on tele, continued on blow-by and satting well. ? Continue with free-water flushes, monitor renal function closely ? Continue AMIODARONE 200 mg daily ? Continue AMLODIPINE 10 mg daily ? Continue XARELTO 20 mg ? Okay holding BUMEX 2 mg IV BID as per nephro team, may need HD eventually if renally function not improving, kadi givens persisting edema. 03/25/2025: no acute overnight event, he was given diamox by nephrology speech therapist was at bedside , kidney function improving . Na is normal today at 143 . Bumex still on hold. .Continue amiodarone 200 mg daily, Amlodipine 10 mg daily, Continue XARELTO 20 mg 03/26/2025: no acute overnight event , primary team reffered him to hospice pending decision . Bumex still on hold. .Continue amiodarone 200 mg daily, Amlodipine 10 mg daily, Continue XARELTO 20 mg 03/27/2025: no acute overnight event . Bumex still on hold. .Continue amiodarone 200 mg daily, Amlodipine 10 mg daily, Continue XARELTO 20 mg, his na is 147 . pending disposition as pt patients need more time to decide. 03/28/2025: no acute overnight event . Bumex still on hold. .Continue amiodarone 200 mg daily, Amlodipine 10 mg daily, Continue XARELTO 20 mg, his na is 147 . pending disposition #Atrial fibrillation, rate controlled. Patient notes positive history of afib. He had previously been on metoprolol succinate 100 mg BID. Currently appears rate-controlled in the 100s. CHADS-VASc score 4 Plan: -Resume Xarelto. -Continue amiodarone 200 mg qday. -Keep potassium >4.0 and mag >2.0. Rest of conditions to continue current management per primary team: #Acute hypoxic respiratory failure s/p tracheostomy. #Morbid obesity. #Community acquired pneumonia. #Elevated LFTs, resolved. #Hyperbilirubinemia, resolved. #History of type 2 diabetes. #Lactic acidosis, resolved. #KENIA on CKD. #Hypernatremia. Discussed the patient with my attending Dr Alvaro Newell MD, PGY-3
--- NOTE | 2025-03-28 14:42 | PC.SS ---
Addendum entered by Janessa Ramírez 03/28/25 15:53: SS spoke to dad and he is agreeable to come to hospital tomorrow to meet with Cely, financial sales associate to initiate Medical process. SS has left voicemail for Cely Original Note: SS spoke to dad and informed him physicians met with pt and pt is requesting to be transferred to higher level of care for peg tube placement and Hospice Services will be on hold at this time. Medical team assessed pt and determined that pt can make his own medical decisions. Hospice is on hold and proceed with peg placement. Dad is aware and agreed with plan.
--- NOTE | 2025-03-28 14:49 | PC.CC ---
Addendum entered by Rashida Horner RN 03/28/25 18:00: [address] Saini and gave update. I also asked to find out who did Diego-en-Y gastric bypass on patient. He stated pt is not able to communicate. But he will find out from family. Addendum entered by Rashida Horner RN 03/28/25 17:05: 1702 received call from Lynn at [facility] that transfer request is denied due to capacity. She stated may check back tomorrow if still need transfer. Addendum entered by Rashida Horner RN 03/28/25 16:37: 1630 received call from Lynn at [facility] and initiated the transfer. Addendum entered by Rashida Horner RN 03/28/25 16:20: 1618 called [facility] to initiate the transfer. Left VM. Addendum entered by Rashida Horner RN 03/28/25 15:30: 1525 clinicals faxed to [facility]. 1517 received call from La Nena at [facility]. She stated transfer is declined because their GI doesn't do jejunostomy on Diego-en-Y gastric bypass patient. Addendum entered by Rashida Horner RN 03/28/25 15:09: 1505 spoke to [place] and initiated the transfer. She stated transfer is declined due to capacity but their GI wouldn't do jejunostomy tube insertion on a patient with hx of gastric bypass. Original Note: 1447 clinicals sent to [facility]. [address] Shields that pt needs to be transferred for jejunostomy tube need IR services. Pt is trached. Hx of gastric bypass. GI and IR attempted to place peg tube but unable to do so.
--- NOTE | 2025-03-28 15:02 | PC.NURSE ---
Walked into patient's room to restart feeding post chest xray of ng tube placement, patient had pulled out his ng tube again. Dr. Bay notified.
--- NOTE | 2025-03-28 15:47 | XR_ITS ---
Examination: AP chest single view TECHNIQUE: AP portable sitting chest single view Date and time: March 28, 2025, 1605 hours Comparison March 28, 2025 1409 hours INDICATIONS: Reposition orogastric tube. FINDINGS: Orogastric tube in the stomach satisfactory position Tracheostomy tube tip 5.9 cm above Meggan Mild pneumonia left base Moderate vascular congestion IMPRESSION: Orogastric tube in stomach satisfactory position
--- NOTE | 2025-03-28 15:49 | PC.SS ---
Addendum entered by Janessa Rmaírez 03/28/25 15:56: PASRR assessment has been sent to [facility] though [facility]. Original Note: Follow up note: Pt pulled out NG tube. Pt is going to be placed on mitten restraints.
--- NOTE | 2025-03-28 19:23 | ESPR_ITS ---
Documentation for date of: 03/28/25 Subjective Subjective Interval history: Getting fed with the NGT Hemoglobin hematocrit 10.9 and 35.7 Exam Vital Signs Temp Pulse Resp BP Pulse Ox O2 Del Method O2 Flow Rate 98.1 F 72 20 123/82 98 Blow-by 7 03/28/25 16:00 03/28/25 16:00 03/28/25 16:00 03/28/25 16:00 03/28/25 16:00 03/28/25 16:00 03/28/25 16:00 FiO2 40 03/28/25 16:00 Objective Labs 03/28/25 06:20 03/28/25 06:20 Labs: Laboratory Results - last 24 hr 03/28/25 06:20 WBC 10.7 H RBC 3.88 L Hgb 10.9 L Hct 35.7 L MCV 92 MCH 28.1 MCHC 30.5 L RDW Std Deviation 49.3 H Plt Count 243 Neut % (Auto) 76 Lymph % (Auto) 9 L Ray % (Auto) 11 Eos % (Auto) 4 Baso % (Auto) 0 Neut # (Auto) 8.1 H Lymph # (Auto) 0.9 L Ray # (Auto) 1.2 H Eos # (Auto) 0.4 Baso # (Auto) 0.0 Immature Gran # (Auto) 0.05 H Absolute Nucleated RBC 0.00 Immature Gran % 1 H Nucleated RBC % 0 Sodium 145 Potassium 4.0 Chloride 103 Carbon Dioxide 35.7 H Anion Gap 6 L BUN 48 H Creatinine 1.5 H Estim Creat Clear Calc 82.4 eGFR 51 L BUN/Creatinine Ratio 32 H Glucose 219 H Calculated Osmolality 308 H Calcium 8.4 Corrected Calcium 9.1 Phosphorus 2.9 Magnesium 1.9 Total Bilirubin 0.6 AST 19 ALT 12 Alkaline Phosphatase 126 H Total Protein 5.7 Albumin 3.1 L Globulin 2.6 Albumin/Globulin Ratio 1.2 Impressions Impression: Failure to thrive NGT feeding Status post tracheostomy mechanically ventilated Continue current management ABG Interpretation ABG results: 02/27/25 02/28/25 03/01/25 06:55 04:57 04:39 ABG pH 7.27 L 7.37 D 7.41 ABG pCO2 57 H 48 44 ABG pO2 101 78 L D 69 L ABG HCO3 26 28 H 28 H ABG O2 Saturation 98 95 93 ABG Base Excess -2 2 3 VBG pH VBG pCO2 VBG pO2 VBG Base Excess 03/01/25 03/01/25 03/02/25 13:15 14:52 04:25 ABG pH Cancelled 7.41 7.45 ABG pCO2 Cancelled 45 42 ABG pO2 Cancelled 53 L* 66 L ABG HCO3 Cancelled 28 H 29 H ABG O2 Saturation Cancelled 85 L 92 ABG Base Excess Cancelled 3 5 H VBG pH VBG pCO2 VBG pO2 VBG Base Excess 03/03/25 03/05/25 03/05/25 04:40 16:30 16:55 ABG pH 7.45 Cancelled 7.34 L D ABG pCO2 43 Cancelled 72 H* D ABG pO2 72 L Cancelled 83 ABG HCO3 30 H Cancelled 38 H ABG O2 Saturation 94 Cancelled 95 ABG Base Excess 5 H Cancelled 9 H VBG pH VBG pCO2 VBG pO2 VBG Base Excess 03/05/25 03/06/25 03/06/25 23:36 01:48 05:22 ABG pH 7.37 7.34 L 7.52 H D ABG pCO2 67 H 74 H* 47 D ABG pO2 150 H D 88 D 160 H D ABG HCO3 38 H 40 H 38 H ABG O2 Saturation 99 H 96 100 H ABG Base Excess 10 H 11 H 13 H VBG pH VBG pCO2 VBG pO2 VBG Base Excess 03/06/25 03/07/25 03/07/25 17:10 05:00 14:03 ABG pH 7.46 H ABG pCO2 53 H ABG pO2 65 L D ABG HCO3 38 H ABG O2 Saturation 93 ABG Base Excess 12 H VBG pH 7.50 7.52 VBG pCO2 50 47 VBG pO2 70 H 61 H VBG Base Excess 13 H 14 H 03/09/25 03/09/25 03/09/25 08:17 10:25 17:29 ABG pH 7.25 L D 7.29 L 7.29 L ABG pCO2 93 H* D 85 H* 88 H* ABG pO2 81 L 57 L* D 85 D ABG HCO3 41 H 40 H 43 H ABG O2 Saturation 95 89 L 97 ABG Base Excess 10 H 10 H 12 H VBG pH VBG pCO2 VBG pO2 VBG Base Excess 03/09/25 03/10/25 03/10/25 23:24 07:17 11:25 ABG pH 7.32 L 7.28 L 7.31 L ABG pCO2 78 H* D 90 H* D 81 H* ABG pO2 69 L 47 L* D 63 L ABG HCO3 40 H 43 H 41 H ABG O2 Saturation 94 80 L 93 ABG Base Excess 11 H 12 H 11 H VBG pH VBG pCO2 VBG pO2 VBG Base Excess 03/10/25 03/11/25 03/12/25 16:56 04:19 04:42 ABG pH 7.40 7.48 H 7.43 ABG pCO2 66 H D 54 H D 59 H ABG pO2 68 L 67 L 77 L ABG HCO3 41 H 40 H 39 H ABG O2 Saturation 94 94 96 ABG Base Excess 13 H 15 H 12 H VBG pH VBG pCO2 VBG pO2 VBG Base Excess 03/13/25 03/14/25 03/15/25 04:32 04:25 04:37 ABG pH 7.47 H 7.46 H 7.41 ABG pCO2 53 H 50 H 56 H ABG pO2 60 L 70 L 69 L ABG HCO3 38 H 36 H 35 H ABG O2 Saturation 93 95 95 ABG Base Excess 13 H 10 H 9 H VBG pH VBG pCO2 VBG pO2 VBG Base Excess 03/16/25 03/16/25 03/17/25 04:54 09:53 04:35 ABG pH 7.45 7.48 H 7.47 H ABG pCO2 51 H 49 H 53 H ABG pO2 68 L 34 L* D 87 D ABG HCO3 35 H 37 H 38 H ABG O2 Saturation 95 67 L 97 ABG Base Excess 10 H 12 H 13 H VBG pH VBG pCO2 VBG pO2 VBG Base Excess 03/18/25 03/19/25 03/26/25 04:26 05:00 08:20 ABG pH 7.44 7.45 7.46 H ABG pCO2 57 H 55 H 54 H ABG pO2 107 D 73 L D 79 L ABG HCO3 38 H 38 H 38 H ABG O2 Saturation 99 H 96 97 ABG Base Excess 12 H 12 H 12 H VBG pH VBG pCO2 VBG pO2 VBG Base Excess Assessment & Plan A&P Narrative 64-year-old male with significant past medical history of hypertension, diabetes mellitus, A-fib was admitted to the ICU on 02/27/2025 after coming in with altered mental status and shortness of breath, intubated for acute hypoxic respiratory failure and had suspected obesity hypoventilation syndrome/obstructive sleep apnea/pneumonia and acute kidney injury. He was extubated on 03/03 and downgraded then re-intubated on 03/06 due to confusion and tachypneia. He was then extubated and downgraded to the floor on 03/07. On 03/10, patient again had decreased mentation on the BiPAP so was reintubated and upgraded. Cardiology has been consulted for suspected heart failure. #Right congestive heart failure with preserved EF. #Severe BASIA/OHS. #Hypernatremia. Echo on this admission showed poor quality images secondary to the patient's body habitus so was a technically limited study. Suspect chronic right heart failure in the setting of chronic obesity hypoventilation syndrome and obstructive sleep apnea. Currently appears to be more pulmonary component to respiratory failure than cardiac. Requiring ventilation support. -Echo 02/27/25: IVC appears to be dilated and also estimated RVSP also appears to be at least moderately elevated at 55 mmHg. 03/14/25: Will hold dirutics for now , he was given IV fluids yesterday. 03/15/25 : [place] catheter was placed by ICU team which showed PA pressure of more than 30s and wedge pressure was also high . started him on bumex drip . will continue the albumin . he is getting his peg tube today 03/16/25: ICU team tried another [place] catheter today which showed RA pressure of 25, PA pressure of 38, PCWP of 23. Plan is to continue Bumex for him. Cr stable at 2.5 03/17/2025: Net fluid balance -3350 cc. ICU team held Bumex due to significant electrolyte abnormalities, potassium 2.7. Once repleted Bumex drip will be resumed. Continue current management and monitor patient. 03/18/2025: net fluid balance -1650 , he received 1 dose of diamox yesterday. will continue to diures, he is off ventillor in blowby with PRN ventillator when he gets tired. 03/19/2025: no acute overnight event.Balance of -950 . ICU team put a swan catheter which showed he is adequately diressed for now, so bumex on hold for now. pending pegtube placement, its been difficult to do the procedure consedering his Rouxy history. Plan: 03/20/2025: Will hold dirutics for now, he was given IV LR and FWF via NG for hypernatremia. 03/21/2025: no acute overnight event. free water flushes increase today for hypernatremia . Xarelto resumed . bumex on hold ,Dr Doty recommending jejunostomy placement. #Atrial fibrillation, rate controlled. Patient notes positive history of afib. He had previously been on metoprolol succinate 100 mg BID. Currently appears rate-controlled in the 100s. CHADS-VASc score 4 Plan: - Metoprolol on hold in setting of right heart failure . -Resume Xarelto. -Continue amiodarone 200 mg qday. -Keep potassium >4.0 and mag >2.0. Rest of conditions to continue current management per primary team: #Acute hypoxic respiratory failure s/p tracheostomy. #Morbid obesity. #Community acquired pneumonia. #Elevated LFTs, resolved. #Hyperbilirubinemia, resolved. #History of type 2 diabetes. #Lactic acidosis, resolved. #KENIA on CKD. 03/22/2025: Patient has tracheostomy inplace and is unable to communicate much Telemetry reviewed and rest of the vital signs including the heart rate appears to be stable. Labs showed that the patient still continues to have hyponatremia at 150 and also has elevated creatinine at 2.6 and a BUN of 66. Patient is on renal water flushes for the hyponatremia and creatinine continues to improve and baseline creatinine appears to be around 2.0 Recommend to continue with free water flushes for now. Patient is morbidly obese with multiple comorbidities as mentioned below and overall prognosis appears to be poor Primary team to discuss with the family regarding goals of care. Management of rest of the medical conditions as per primary team and other consultants. Thank you for the consult and allowing me to participate in the care of the patient. Cardiology will continue to follow. Kobe Barahona M.D. Interventional Cardiology Time Spent With Patient Time: Total time spent is greater than 50% in coordination of care (as documented) at patient's floor/unit and/or counseling patient:
[2025-03-28] MEDS: ASCORBIC ACID 250 MG TABLET 500 MG NG (20:00)
[2025-03-29] VITALS (10 sets, daily range): BP systolic 126–150; BP diastolic 80–96; PULSE 63–108; RESP 16–26; TEMP 36.1–36.2; O2SAT 91–98; BMI 69.5
[2025-03-29] MEDS: INSULIN LISPRO (AdmeLOG) 1 UNIT/0.01 ML UNIT SC ×4 (05:08→23:27)
[2025-03-29 06:21] LABS: Basophils % (Auto) 0 % (0-2.5); Eosinophils # (Auto) 0.3 Thou/mm3 (0.0-0.5); Eosinophils % (Auto) 3 % (0-10); Hematocrit 36.9 % (41.0-53.0); Immature Granulocytes % (Auto) 0 % (0-0); Immature Granulocytes Auto 0.04 Thou/mm3 (0.00-0.00); Lymphocytes # (Auto) 1.2 Thou/mm3 (1.0-4.8); Lymphocytes % (Auto) 10 % (10-50); Mean Corpuscular HGB Conc 29.8 g/dl (31.0-37.0); Mean Corpuscular Volume 94 fL (80-100); Monocytes # (Auto) 1.3 Thou/mm3 (0.0-0.8); Monocytes % (Auto) 12 % (0-12); Neutrophils # (Auto) 8.3 Thou/mm3 (1.8-7.7); Neutrophils % (Auto) 74 % (37-80); Nucleated Red Blood Cell % 0 /100 WBC (0); Platelet Count 265 Thou/mm3 (140-440); RDW Standard Deviation 50.6 fL (35.1-43.9); Red Blood Count 3.93 Miln/mm3 (4.50-5.90); White Blood Count 11.1 Thou/mm3 (3.8-10.6)
[2025-03-29 06:43] LABS: Alanine Aminotransferase 11 U/L (10-49); Albumin, Serum 3.2 gm/dL (3.4-4.8); Albumin/Globulin Ratio 1.2 (1.2-2.2); Alkaline Phosphatase 144 U/L (46-116); Anion Gap 7 (7-16); Aspartate Amino Transferase 25 U/L (0-34); BUN/Creatinine Ratio 27 Ratio (12-20); Bilirubin,Total 0.7 mg/dL (0.3-1.2); Blood Urea Nitrogen 41 mg/dL (9-23); Calcium 8.5 mg/dL (8.3-10.6); Calcium (Corrected) 9.1 mg/dL (8.5-10.1); Carbon Dioxide 35.2 mMol/L (20.0-31.0); Chloride 103 mMol/L (98-107); Creatinine (Component) 1.5 mg/dL (0.6-1.3); Estimated Creatinine Clearance 82.4 mL/min (>60); Globulin 2.7 gm/dL (2.3-3.5); Glucose 191 mg/dL (74-106); Magnesium 1.9 mg/dL (1.6-2.6); Osmolality,Calculated 303 (275-295); Phosphorous 3.1 mg/dL (2.4-5.1); Sodium 145 mMol/L (136-145); Total Protein 5.9 gm/dL (5.7-8.2); eGFR 51 See Note
--- NOTE | 2025-03-29 08:48 | PC.CM ---
Addendum entered by Pamela Holliday RN 03/29/25 16:52: I received a call back from [facility]. They declined patient stating jejunostomy tube placement is an outpatient procedure. They stated medicine team is not accepting any inpatient's at this time. Patient was declined. Addendum entered by Pamela Holliday RN 03/29/25 15:11: I contacted [facility] and initiated a transfer. I spoke to Jose with the transfer center and he states he would like to know the girth of the patient just in case they need to do images. I called Griselda Cantrell and I asked if she could provide me with patient's girth. Addendum entered by Pamela Holliday RN 03/29/25 14:29: [facility] declined patient due to capacity. They did not take my information. Addendum entered by Pamela Holliday RN 03/29/25 10:38: I spoke to Dr. Haas and to Dr. Shields to discuss transfer. I let them know patient has been declined by by [facility], and [facility]. I let them know I will try a couple of tertiary centers. Dr. Haas states they already talked to family about hospice services because of patients overall poor prognosis. Patient currently is on a vent. I will reach out to [facility]. Dr. Shields provided his phone number for peer to peer call. Original Note: I reviewed notes and I see patient needs transfer needing IR for jenunostomy placement. Patient has history of daniel-en-y surgery. Patient was declined by [facility] stating they will not do a jejunostomy on a patient who has had a Daniel-en-y procedure. I reached out to [facility] and they declined patient due to capacity.
--- NOTE | 2025-03-29 08:58 | PC.SS ---
Addendum entered by Janessa Ramírez 03/30/25 12:31: Late note 03-31-25: SS met with parents who are agreeable to assist with pt applying for Medical. SS called [employer] who will meet with parents at bedside. Original Note: Follow up note: Waiting for higher level of care transfer for peg tube placement. Pt is on soft wrist restraints due to constantly remove NG tube. Pt has trach.
[2025-03-29] MEDS: Magnesium Sulfate 1 gm Ivpb 1 GM/100 ML BAG IV (09:02)
[2025-03-29] MEDS: AMIODARONE HCL 200 MG TABLET NG (09:09)
[2025-03-29] MEDS: amLODIPine BESYLATE 5 MG TABLET 10 MG NG (09:09)
[2025-03-29] MEDS: MULTIVITAMIN 15 ML UDC NG (09:10)
[2025-03-29] MEDS: ZINC SULFATE 220 MG CAPSULE NG (09:10)
[2025-03-29] MEDS: LANSOPRAZOLE 30 MG TAB.RAP.DR NG (09:10)
[2025-03-29] MEDS: ASCORBIC ACID 250 MG TABLET 500 MG NG ×2 (09:10→20:09)
[2025-03-29] MEDS: INSULIN GLARGINE (Lantus) 5 UNIT/0.05 ML (PER 5 UNITS) 35 UNIT SC (09:25)
--- NOTE | 2025-03-29 12:01 | ESPR_ITS ---
<Statement entered by Lenora John MD - 03/29/25 19:29> I personally examined and evaluated the patient along with resident physician PGY 3 patient appears to be clinically stable not have any acute decompensation any A-fib RVR mostly rate controlled clinically stable and she will be transferred from cardiac point of Documentation for date of: 03/29/25 Subjective Subjective Interval history: pt examined bedside this morning , no acute overnight events . He is pending transfer for IR or surgical jejunostomy or PEG placement due to history of Diego-en-Y Exam Vital Signs Temp Pulse Resp BP Pulse Ox O2 Del Method O2 Flow Rate 96.9 F 65 25 H 137/94 H 96 Mechanical Ventilation 8 03/29/25 08:00 03/29/25 09:09 03/29/25 08:00 03/29/25 09:09 03/29/25 08:00 03/29/25 08:00 03/29/25 07:03 FiO2 40 03/29/25 07:03 Narrative Exam Gen: Well-developed and well-nourished morbidly obese male., NG tube in place HEENT: NCAT, PERRLA, EOMI, MMM, anicteric conjunctivae, tracheostomy in place. CVS: Decreased heart sounds, normal S1 and S2. RRR. No M/R/G. Resp: Decreased breath sounds B/L. No rhonchi, rales, crackles or wheezing. Abd: soft, morbidly obese, non-tender, non-distended. BS+ in all 4 quadrants. Pitting edema over bilateral flanks and sides. MSK: Good ROM in BUE & BLE. 2+ pitting edema BLE. Neuro: Limited exam due to medical condition. Objective Labs 03/29/25 05:28 03/29/25 05:28 Labs: Laboratory Results - last 24 hr 03/29/25 05:28 WBC 11.1 H RBC 3.93 L Hgb 11.0 L Hct 36.9 L MCV 94 MCH 28.0 MCHC 29.8 L RDW Std Deviation 50.6 H Plt Count 265 Neut % (Auto) 74 Lymph % (Auto) 10 [place] % (Auto) 12 Eos % (Auto) 3 Baso % (Auto) 0 Neut # (Auto) 8.3 H Lymph # (Auto) 1.2 [place] # (Auto) 1.3 H Eos # (Auto) 0.3 Baso # (Auto) 0.0 Immature Gran # (Auto) 0.04 H Absolute Nucleated RBC 0.00 Immature Gran % 0 Nucleated RBC % 0 Sodium 145 Potassium 4.0 Chloride 103 Carbon Dioxide 35.2 H Anion Gap 7 BUN 41 H Creatinine 1.5 H Estim Creat Clear Calc 82.4 eGFR 51 L BUN/Creatinine Ratio 27 H Glucose 191 H Calculated Osmolality 303 H Calcium 8.5 Corrected Calcium 9.1 Phosphorus 3.1 Magnesium 1.9 Total Bilirubin 0.7 AST 25 ALT 11 Alkaline Phosphatase 144 H Total Protein 5.9 Albumin 3.2 L Globulin 2.7 Albumin/Globulin Ratio 1.2 ABG Interpretation ABG results: 02/27/25 02/28/25 03/01/25 06:55 04:57 04:39 ABG pH 7.27 L 7.37 D 7.41 ABG pCO2 57 H 48 44 ABG pO2 101 78 L D 69 L ABG HCO3 26 28 H 28 H ABG O2 Saturation 98 95 93 ABG Base Excess -2 2 3 VBG pH VBG pCO2 VBG pO2 VBG Base Excess 03/01/25 03/01/25 03/02/25 13:15 14:52 04:25 ABG pH Cancelled 7.41 7.45 ABG pCO2 Cancelled 45 42 ABG pO2 Cancelled 53 L* 66 L ABG HCO3 Cancelled 28 H 29 H ABG O2 Saturation Cancelled 85 L 92 ABG Base Excess Cancelled 3 5 H VBG pH VBG pCO2 VBG pO2 VBG Base Excess 03/03/25 03/05/25 03/05/25 04:40 16:30 16:55 ABG pH 7.45 Cancelled 7.34 L D ABG pCO2 43 Cancelled 72 H* D ABG pO2 72 L Cancelled 83 ABG HCO3 30 H Cancelled 38 H ABG O2 Saturation 94 Cancelled 95 ABG Base Excess 5 H Cancelled 9 H VBG pH VBG pCO2 VBG pO2 VBG Base Excess 03/05/25 03/06/25 03/06/25 23:36 01:48 05:22 ABG pH 7.37 7.34 L 7.52 H D ABG pCO2 67 H 74 H* 47 D ABG pO2 150 H D 88 D 160 H D ABG HCO3 38 H 40 H 38 H ABG O2 Saturation 99 H 96 100 H ABG Base Excess 10 H 11 H 13 H VBG pH VBG pCO2 VBG pO2 VBG Base Excess 03/06/25 03/07/25 03/07/25 17:10 05:00 14:03 ABG pH 7.46 H ABG pCO2 53 H ABG pO2 65 L D ABG HCO3 38 H ABG O2 Saturation 93 ABG Base Excess 12 H VBG pH 7.50 7.52 VBG pCO2 50 47 VBG pO2 70 H 61 H VBG Base Excess 13 H 14 H 03/09/25 03/09/25 03/09/25 08:17 10:25 17:29 ABG pH 7.25 L D 7.29 L 7.29 L ABG pCO2 93 H* D 85 H* 88 H* ABG pO2 81 L 57 L* D 85 D ABG HCO3 41 H 40 H 43 H ABG O2 Saturation 95 89 L 97 ABG Base Excess 10 H 10 H 12 H VBG pH VBG pCO2 VBG pO2 VBG Base Excess 03/09/25 03/10/25 03/10/25 23:24 07:17 11:25 ABG pH 7.32 L 7.28 L 7.31 L ABG pCO2 78 H* D 90 H* D 81 H* ABG pO2 69 L 47 L* D 63 L ABG HCO3 40 H 43 H 41 H ABG O2 Saturation 94 80 L 93 ABG Base Excess 11 H 12 H 11 H VBG pH VBG pCO2 VBG pO2 VBG Base Excess 03/10/25 03/11/25 03/12/25 16:56 04:19 04:42 ABG pH 7.40 7.48 H 7.43 ABG pCO2 66 H D 54 H D 59 H ABG pO2 68 L 67 L 77 L ABG HCO3 41 H 40 H 39 H ABG O2 Saturation 94 94 96 ABG Base Excess 13 H 15 H 12 H VBG pH VBG pCO2 VBG pO2 VBG Base Excess 03/13/25 03/14/25 03/15/25 04:32 04:25 04:37 ABG pH 7.47 H 7.46 H 7.41 ABG pCO2 53 H 50 H 56 H ABG pO2 60 L 70 L 69 L ABG HCO3 38 H 36 H 35 H ABG O2 Saturation 93 95 95 ABG Base Excess 13 H 10 H 9 H VBG pH VBG pCO2 VBG pO2 VBG Base Excess 03/16/25 03/16/25 03/17/25 04:54 09:53 04:35 ABG pH 7.45 7.48 H 7.47 H ABG pCO2 51 H 49 H 53 H ABG pO2 68 L 34 L* D 87 D ABG HCO3 35 H 37 H 38 H ABG O2 Saturation 95 67 L 97 ABG Base Excess 10 H 12 H 13 H VBG pH VBG pCO2 VBG pO2 VBG Base Excess 03/18/25 03/19/25 03/26/25 04:26 05:00 08:20 ABG pH 7.44 7.45 7.46 H ABG pCO2 57 H 55 H 54 H ABG pO2 107 D 73 L D 79 L ABG HCO3 38 H 38 H 38 H ABG O2 Saturation 99 H 96 97 ABG Base Excess 12 H 12 H 12 H VBG pH VBG pCO2 VBG pO2 VBG Base Excess Quality Measures Quality Measures sepsis Current suspected stage: ruled out Possible source: pulmonary Blood cultures ordered: completed in ED Antibiotic ordered: Yes Advance care planning discussed with:: patient Assessment & Plan Assessment Current Active Medications: Generic Name Dose Route Start Last Admin Trade Name Freq PRN Reason Stop Dose Admin Hydrocodone Bitart/Acetaminophen 1 tab 03/26/25 07:57 03/26/25 08:33 Hydrocodone/Apap 5/325 Tablet GT 03/31/25 07:56 1 tab Q4HR PRN Administration PAIN Protocol Amiodarone HCl 200 mg 03/24/25 09:45 03/29/25 09:09 Amiodarone Hcl 200 Mg Tablet NG 03/31/25 08:59 200 mg QDAY KOURTNEY Administration Amlodipine Besylate 10 mg 03/24/25 09:45 03/29/25 09:09 Amlodipine Besylate 5 Mg Tablet NG 04/19/25 23:34 10 mg DAILY KOURTNEY Administration Ascorbic Acid 500 mg 03/27/25 12:00 03/29/25 09:10 Ascorbic Acid 250 Mg Tablet NG 04/26/25 11:59 500 mg BID KOURTNEY Administration Bumetanide 2 mg 03/17/25 21:00 03/18/25 21:28 Bumetanide Inj 0.25 Mg/Ml Vial 4 Ml IVP 04/16/25 20:59 2 mg BID KOURTNEY Administration Cyclobenzaprine HCl 5 mg 03/26/25 08:25 Cyclobenzaprine 5 Mg Tablet PO 04/25/25 08:24 TID PRN MUSCLE SPASMS Protocol Dextrose 25 ml 03/03/25 08:20 Dextrose 50%-Water Inj 50 Ml Syringe IV 04/02/25 08:19 Q15MIN PRN BG 50-70 responsive npo pt Dextrose 50 ml 03/03/25 08:20 Dextrose 50%-Water Inj 50 Ml Syringe IV 04/02/25 08:19 Q15MIN PRN BG <50 OR BG <70 & pt unresponsive Glucagon 1 mg 03/03/25 08:20 Glucagon Inj 1 Mg Vial IM Q15MIN PRN BG <70, and no IV access Insulin Glargine 35 unit 03/28/25 09:00 03/29/25 09:25 Insulin Glargine (Lantus) 5 Unit/0.05 Ml (Per 5 Units) SC 04/27/25 08:59 35 unit QDAY KOURTNEY Administration Insulin Human Lispro 0 unit 03/25/25 12:00 03/29/25 11:49 Insulin Lispro (Admelog) 1 Unit/0.01 Ml Unit SC 04/24/25 11:59 3 unit Q6HR KOURTNEY Administration Protocol Lansoprazole 30 mg 03/23/25 09:30 03/29/25 09:10 Lansoprazole 30 Mg Tab.Rap.Dr CHAPNI 04/21/25 08:59 30 mg QDAY KOURTNEY Administration Multivitamins/Minerals 15 ml 03/27/25 12:00 03/29/25 09:10 Multivitamin 15 Ml Udc NG 04/26/25 11:59 15 ml QDAY KOURTNEY Administration Ondansetron HCl 4 mg 03/05/25 20:46 03/09/25 03:49 Ondansetron Inj 2 Mg/Ml Inj 2 Ml IV 04/04/25 20:45 4 mg Q6HR PRN Administration NAUSEA OR VOMITING Protocol Rivaroxaban 20 mg 03/23/25 17:30 03/28/25 18:48 Rivaroxaban 10 Mg Tablet GT 04/03/25 17:29 Not Given WSUPPER KOURTNEY Zinc Sulfate 220 mg 03/27/25 12:00 03/29/25 09:10 Zinc Sulfate 220 Mg Capsule NG 04/10/25 11:59 220 mg QDAY KOURTNEY Administration Plan 64-year-old male with significant past medical history of hypertension, diabetes mellitus, A-fib was admitted to the ICU on 02/27/2025 after coming in with altered mental status and shortness of breath, intubated for acute hypoxic respiratory failure and had suspected obesity hypoventilation syndrome/obstructive sleep apnea/pneumonia and acute kidney injury. He was extubated on 03/03 and downgraded then re-intubated on 03/06 due to confusion and tachypneia. He was then extubated and downgraded to the floor on 03/07. On 03/10, patient again had decreased mentation on the BiPAP so was reintubated and upgraded. Cardiology has been consulted for suspected heart failure. #Right congestive heart failure with preserved EF. #Severe BASIA/OHS. Echo on this admission showed poor quality images secondary to the patient's body habitus so was a technically limited study. Suspect chronic right heart failure in the setting of chronic obesity hypoventilation syndrome and obstructive sleep apnea. Currently appears to be more pulmonary component to respiratory failure than cardiac. Requiring ventilation support. -Echo 02/27/25: IVC appears to be dilated and also estimated RVSP also appears to be at least moderately elevated at 55 mmHg. 03/14/25: Will hold dirutics for now , he was given IV fluids yesterday. 03/15/25 : [place] catheter was placed by ICU team which showed PA pressure of more than 30s and wedge pressure was also high . started him on bumex drip . will continue the albumin . he is getting his peg tube today 03/16/25: ICU team tried another [place] catheter today which showed RA pressure of 25, PA pressure of 38, PCWP of 23. Plan is to continue Bumex for him. Cr stable at 2.5 03/17/2025: Net fluid balance -3350 cc. ICU team held Bumex due to significant electrolyte abnormalities, potassium 2.7. Once repleted Bumex drip will be resumed. Continue current management and monitor patient. 03/18/2025: net fluid balance -1650 , he received 1 dose of diamox yesterday. will continue to diures, he is off ventillor in blowby with PRN ventillator when he gets tired. 03/19/2025: no acute overnight event.Balance of -950 . ICU team put a swan catheter which showed he is adequately diressed for now, so bumex on hold for now. pending pegtube placement, its been difficult to do the procedure consedering his Rouxy history. Plan: 03/20/2025: Will hold dirutics for now, he was given IV LR and FWF via NG for hypernatremia. 03/21/2025: no acute overnight event. free water flushes increase today for hypernatremia . Xarelto resumed . bumex on hold ,Dr Doty recommending jejunostomy placement. 03/22/2025:Patient has tracheostomy inplace and is unable to communicate much Telemetry reviewed and rest of the vital signs including the heart rate appears to be stable. Labs showed that the patient still continues to have hyponatremia at 150 and also has elevated creatinine at 2.6 and a BUN of 66. Patient is on renal water flushes for the hyponatremia and creatinine continues to improve and baseline creatinine appears to be around 2.0 Recommend to continue with free water flushes for now. Patient is morbidly obese with multiple comorbidities as mentioned below and overall prognosis appears to be poor Primary team to discuss with the family regarding goals of care. 03/23/2025:Continued on free water flushes, sodium 150 > 149. Renal function showing minor improvement with BUN 63, CR 2.4, EGFR 29. Poor urine output. 2/3+ LE edema noted on exam again. Vitals relatively normal, BP 121/92, HR 98 although spikes of HR 120s noted on tele, continued on blow-by and satting well. ? Continue with free-water flushes, monitor renal function closely ? Continue AMIODARONE 200 mg daily ? Continue AMLODIPINE 10 mg daily ? Continue XARELTO 20 mg ? Okay holding BUMEX 2 mg IV BID as per nephro team, may need HD eventually if renally function not improving, kadi givens persisting edema. 03/25/2025: no acute overnight event, he was given diamox by nephrology speech therapist was at bedside , kidney function improving . Na is normal today at 143 . Bumex still on hold. .Continue amiodarone 200 mg daily, Amlodipine 10 mg daily, Continue XARELTO 20 mg 03/26/2025: no acute overnight event , primary team reffered him to hospice pending decision . Bumex still on hold. .Continue amiodarone 200 mg daily, Amlodipine 10 mg daily, Continue XARELTO 20 mg 03/27/2025: no acute overnight event . Bumex still on hold. .Continue amiodarone 200 mg daily, Amlodipine 10 mg daily, Continue XARELTO 20 mg, his na is 147 . pending disposition as pt patients need more time to decide. 03/28/2025: no acute overnight event . Bumex still on hold. .Continue amiodarone 200 mg daily, Amlodipine 10 mg daily, Continue XARELTO 20 mg, his na is 147 . pending disposition 03/29/2025: no acute overnight event . Bumex still on hold. .Continue amiodarone 200 mg daily, Amlodipine 10 mg daily, Continue XARELTO 20 mg, his na is 147 . pending disposition He is pending transfer for IR or surgical jejunostomy or PEG placement due to history of Diego-en-Y #Atrial fibrillation, rate controlled. Patient notes positive history of afib. He had previously been on metoprolol succinate 100 mg BID. Currently appears rate-controlled in the 100s. CHADS-VASc score 4 Plan: -Resume Xarelto. -Continue amiodarone 200 mg qday. -Keep potassium >4.0 and mag >2.0. Rest of conditions to continue current management per primary team: #Acute hypoxic respiratory failure s/p tracheostomy. #Morbid obesity. #Community acquired pneumonia. #Elevated LFTs, resolved. #Hyperbilirubinemia, resolved. #History of type 2 diabetes. #Lactic acidosis, resolved. #KENIA on CKD. #Hypernatremia. Discussed the patient with my attending Dr Alvaro Newell MD, PGY-3
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
[2025-03-29] MEDS: RIVAROXABAN 10 MG TABLET 20 MG GT (17:18)
--- NOTE | 2025-03-29 18:09 | ESPR_ITS ---
Documentation for date of: 03/29/25 Subjective Subjective Interval history: Still waiting for transfer being fed through the NGT Exam Vital Signs Temp Pulse Resp BP Pulse Ox O2 Del Method O2 Flow Rate 97.2 F 99 24 H 130/83 91 L Blow-by 8 03/29/25 12:00 03/29/25 16:00 03/29/25 12:00 03/29/25 12:00 03/29/25 12:00 03/29/25 12:00 03/29/25 07:03 FiO2 40 03/29/25 07:03 Objective Labs 03/29/25 05:28 03/29/25 05:28 Labs: Laboratory Results - last 24 hr 03/29/25 05:28 WBC 11.1 H RBC 3.93 L Hgb 11.0 L Hct 36.9 L MCV 94 MCH 28.0 MCHC 29.8 L RDW Std Deviation 50.6 H Plt Count 265 Neut % (Auto) 74 Lymph % (Auto) 10 [place] % (Auto) 12 Eos % (Auto) 3 Baso % (Auto) 0 Neut # (Auto) 8.3 H Lymph # (Auto) 1.2 [place] # (Auto) 1.3 H Eos # (Auto) 0.3 Baso # (Auto) 0.0 Immature Gran # (Auto) 0.04 H Absolute Nucleated RBC 0.00 Immature Gran % 0 Nucleated RBC % 0 Sodium 145 Potassium 4.0 Chloride 103 Carbon Dioxide 35.2 H Anion Gap 7 BUN 41 H Creatinine 1.5 H Estim Creat Clear Calc 82.4 eGFR 51 L BUN/Creatinine Ratio 27 H Glucose 191 H Calculated Osmolality 303 H Calcium 8.5 Corrected Calcium 9.1 Phosphorus 3.1 Magnesium 1.9 Total Bilirubin 0.7 AST 25 ALT 11 Alkaline Phosphatase 144 H Total Protein 5.9 Albumin 3.2 L Globulin 2.7 Albumin/Globulin Ratio 1.2 Impressions Impression: Failure to thrive Enteral feeding via the NGT Awaiting transfer to a tertiary center for IR guided jejunostomy tube placement ABG Interpretation ABG results: 02/27/25 02/28/25 03/01/25 06:55 04:57 04:39 ABG pH 7.27 L 7.37 D 7.41 ABG pCO2 57 H 48 44 ABG pO2 101 78 L D 69 L ABG HCO3 26 28 H 28 H ABG O2 Saturation 98 95 93 ABG Base Excess -2 2 3 VBG pH VBG pCO2 VBG pO2 VBG Base Excess 03/01/25 03/01/25 03/02/25 13:15 14:52 04:25 ABG pH Cancelled 7.41 7.45 ABG pCO2 Cancelled 45 42 ABG pO2 Cancelled 53 L* 66 L ABG HCO3 Cancelled 28 H 29 H ABG O2 Saturation Cancelled 85 L 92 ABG Base Excess Cancelled 3 5 H VBG pH VBG pCO2 VBG pO2 VBG Base Excess 03/03/25 03/05/25 03/05/25 04:40 16:30 16:55 ABG pH 7.45 Cancelled 7.34 L D ABG pCO2 43 Cancelled 72 H* D ABG pO2 72 L Cancelled 83 ABG HCO3 30 H Cancelled 38 H ABG O2 Saturation 94 Cancelled 95 ABG Base Excess 5 H Cancelled 9 H VBG pH VBG pCO2 VBG pO2 VBG Base Excess 03/05/25 03/06/25 03/06/25 23:36 01:48 05:22 ABG pH 7.37 7.34 L 7.52 H D ABG pCO2 67 H 74 H* 47 D ABG pO2 150 H D 88 D 160 H D ABG HCO3 38 H 40 H 38 H ABG O2 Saturation 99 H 96 100 H ABG Base Excess 10 H 11 H 13 H VBG pH VBG pCO2 VBG pO2 VBG Base Excess 03/06/25 03/07/25 03/07/25 17:10 05:00 14:03 ABG pH 7.46 H ABG pCO2 53 H ABG pO2 65 L D ABG HCO3 38 H ABG O2 Saturation 93 ABG Base Excess 12 H VBG pH 7.50 7.52 VBG pCO2 50 47 VBG pO2 70 H 61 H VBG Base Excess 13 H 14 H 03/09/25 03/09/25 03/09/25 08:17 10:25 17:29 ABG pH 7.25 L D 7.29 L 7.29 L ABG pCO2 93 H* D 85 H* 88 H* ABG pO2 81 L 57 L* D 85 D ABG HCO3 41 H 40 H 43 H ABG O2 Saturation 95 89 L 97 ABG Base Excess 10 H 10 H 12 H VBG pH VBG pCO2 VBG pO2 VBG Base Excess 03/09/25 03/10/25 03/10/25 23:24 07:17 11:25 ABG pH 7.32 L 7.28 L 7.31 L ABG pCO2 78 H* D 90 H* D 81 H* ABG pO2 69 L 47 L* D 63 L ABG HCO3 40 H 43 H 41 H ABG O2 Saturation 94 80 L 93 ABG Base Excess 11 H 12 H 11 H VBG pH VBG pCO2 VBG pO2 VBG Base Excess 03/10/25 03/11/25 03/12/25 16:56 04:19 04:42 ABG pH 7.40 7.48 H 7.43 ABG pCO2 66 H D 54 H D 59 H ABG pO2 68 L 67 L 77 L ABG HCO3 41 H 40 H 39 H ABG O2 Saturation 94 94 96 ABG Base Excess 13 H 15 H 12 H VBG pH VBG pCO2 VBG pO2 VBG Base Excess 03/13/25 03/14/25 03/15/25 04:32 04:25 04:37 ABG pH 7.47 H 7.46 H 7.41 ABG pCO2 53 H 50 H 56 H ABG pO2 60 L 70 L 69 L ABG HCO3 38 H 36 H 35 H ABG O2 Saturation 93 95 95 ABG Base Excess 13 H 10 H 9 H VBG pH VBG pCO2 VBG pO2 VBG Base Excess 03/16/25 03/16/25 03/17/25 04:54 09:53 04:35 ABG pH 7.45 7.48 H 7.47 H ABG pCO2 51 H 49 H 53 H ABG pO2 68 L 34 L* D 87 D ABG HCO3 35 H 37 H 38 H ABG O2 Saturation 95 67 L 97 ABG Base Excess 10 H 12 H 13 H VBG pH VBG pCO2 VBG pO2 VBG Base Excess 03/18/25 03/19/25 03/26/25 04:26 05:00 08:20 ABG pH 7.44 7.45 7.46 H ABG pCO2 57 H 55 H 54 H ABG pO2 107 D 73 L D 79 L ABG HCO3 38 H 38 H 38 H ABG O2 Saturation 99 H 96 97 ABG Base Excess 12 H 12 H 12 H VBG pH VBG pCO2 VBG pO2 VBG Base Excess Assessment & Plan A&P Narrative 64-year-old male with significant past medical history of hypertension, diabetes mellitus, A-fib was admitted to the ICU on 02/27/2025 after coming in with altered mental status and shortness of breath, intubated for acute hypoxic respiratory failure and had suspected obesity hypoventilation syndrome/obstructive sleep apnea/pneumonia and acute kidney injury. He was extubated on 03/03 and downgraded then re-intubated on 03/06 due to confusion and tachypneia. He was then extubated and downgraded to the floor on 03/07. On 03/10, patient again had decreased mentation on the BiPAP so was reintubated and upgraded. Cardiology has been consulted for suspected heart failure. #Right congestive heart failure with preserved EF. #Severe BASIA/OHS. #Hypernatremia. Echo on this admission showed poor quality images secondary to the patient's body habitus so was a technically limited study. Suspect chronic right heart failure in the setting of chronic obesity hypoventilation syndrome and obstructive sleep apnea. Currently appears to be more pulmonary component to respiratory failure than cardiac. Requiring ventilation support. -Echo 02/27/25: IVC appears to be dilated and also estimated RVSP also appears to be at least moderately elevated at 55 mmHg. 03/14/25: Will hold dirutics for now , he was given IV fluids yesterday. 03/15/25 : [place] catheter was placed by ICU team which showed PA pressure of more than 30s and wedge pressure was also high . started him on bumex drip . will continue the albumin . he is getting his peg tube today 03/16/25: ICU team tried another [place] catheter today which showed RA pressure of 25, PA pressure of 38, PCWP of 23. Plan is to continue Bumex for him. Cr stable at 2.5 03/17/2025: Net fluid balance -3350 cc. ICU team held Bumex due to significant electrolyte abnormalities, potassium 2.7. Once repleted Bumex drip will be resumed. Continue current management and monitor patient. 03/18/2025: net fluid balance -1650 , he received 1 dose of diamox yesterday. will continue to diures, he is off ventillor in blowby with PRN ventillator when he gets tired. 03/19/2025: no acute overnight event.Balance of -950 . ICU team put a swan catheter which showed he is adequately diressed for now, so bumex on hold for now. pending pegtube placement, its been difficult to do the procedure consedering his Rouxy history. Plan: 03/20/2025: Will hold dirutics for now, he was given IV LR and FWF via NG for hypernatremia. 03/21/2025: no acute overnight event. free water flushes increase today for hypernatremia . Xarelto resumed . bumex on hold ,Dr Doty recommending jejunostomy placement. #Atrial fibrillation, rate controlled. Patient notes positive history of afib. He had previously been on metoprolol succinate 100 mg BID. Currently appears rate-controlled in the 100s. CHADS-VASc score 4 Plan: - Metoprolol on hold in setting of right heart failure . -Resume Xarelto. -Continue amiodarone 200 mg qday. -Keep potassium >4.0 and mag >2.0. Rest of conditions to continue current management per primary team: #Acute hypoxic respiratory failure s/p tracheostomy. #Morbid obesity. #Community acquired pneumonia. #Elevated LFTs, resolved. #Hyperbilirubinemia, resolved. #History of type 2 diabetes. #Lactic acidosis, resolved. #KENIA on CKD. 03/22/2025: Patient has tracheostomy inplace and is unable to communicate much Telemetry reviewed and rest of the vital signs including the heart rate appears to be stable. Labs showed that the patient still continues to have hyponatremia at 150 and also has elevated creatinine at 2.6 and a BUN of 66. Patient is on renal water flushes for the hyponatremia and creatinine continues to improve and baseline creatinine appears to be around 2.0 Recommend to continue with free water flushes for now. Patient is morbidly obese with multiple comorbidities as mentioned below and overall prognosis appears to be poor Primary team to discuss with the family regarding goals of care. Management of rest of the medical conditions as per primary team and other consultants. Thank you for the consult and allowing me to participate in the care of the patient. Cardiology will continue to follow. Kobe Barahona M.D. Interventional Cardiology Time Spent With Patient Time: Total time spent is greater than 50% in coordination of care (as documented) at patient's floor/unit and/or counseling patient:
[2025-03-30] VITALS (12 sets, daily range): BP systolic 120–144; BP diastolic 84–95; PULSE 60–107; RESP 12–30; TEMP 36.1–36.6; O2SAT 92–98; BMI 69.5
[2025-03-30] MEDS: INSULIN LISPRO (AdmeLOG) 1 UNIT/0.01 ML UNIT SC ×4 (05:13→23:22)
[2025-03-30 06:45] LABS: Basophils % (Auto) 0 % (0-2.5); Eosinophils # (Auto) 0.3 Thou/mm3 (0.0-0.5); Eosinophils % (Auto) 3 % (0-10); Hematocrit 35.9 % (41.0-53.0); Hemoglobin 10.8 g/dL (13.5-16.0); Immature Granulocytes % (Auto) 0 % (0-0); Immature Granulocytes Auto 0.03 Thou/mm3 (0.00-0.00); Lymphocytes # (Auto) 0.8 Thou/mm3 (1.0-4.8); Lymphocytes % (Auto) 8 % (10-50); Mean Corpuscular HGB Conc 30.1 g/dl (31.0-37.0); Mean Corpuscular Hemoglobin 28.3 pg (25.0-35.0); Mean Corpuscular Volume 94 fL (80-100); Monocytes # (Auto) 1.2 Thou/mm3 (0.0-0.8); Monocytes % (Auto) 11 % (0-12); Neutrophils % (Auto) 78 % (37-80); Nucleated Red Blood Cell % 0 /100 WBC (0); Platelet Count 270 Thou/mm3 (140-440); RDW Standard Deviation 50.7 fL (35.1-43.9); Red Blood Count 3.81 Miln/mm3 (4.50-5.90); White Blood Count 10.4 Thou/mm3 (3.8-10.6)
[2025-03-30 07:24] LABS: Alanine Aminotransferase 11 U/L (10-49); Albumin/Globulin Ratio 1.1 (1.2-2.2); Alkaline Phosphatase 135 U/L (46-116); Anion Gap 7 (7-16); Aspartate Amino Transferase 19 U/L (0-34); BUN/Creatinine Ratio 26 Ratio (12-20); Bilirubin,Total 0.6 mg/dL (0.3-1.2); Blood Urea Nitrogen 37 mg/dL (9-23); Calcium 8.4 mg/dL (8.3-10.6); Calcium (Corrected) 9.2 mg/dL (8.5-10.1); Carbon Dioxide 32.8 mMol/L (20.0-31.0); Chloride 101 mMol/L (98-107); Creatinine (Component) 1.4 mg/dL (0.6-1.3); Estimated Creatinine Clearance 88.3 mL/min (>60); Globulin 2.7 gm/dL (2.3-3.5); Glucose 205 mg/dL (74-106); Magnesium 1.8 mg/dL (1.6-2.6); Osmolality,Calculated 295 (275-295); Phosphorous 3.5 mg/dL (2.4-5.1); Sodium 141 mMol/L (136-145); Total Protein 5.7 gm/dL (5.7-8.2); eGFR 56 See Note
[2025-03-30] MEDS: Magnesium Sulfate 2 GM Ivpb 2 GM/50 ML BAG IV (08:05)
[2025-03-30] MEDS: MULTIVITAMIN 15 ML UDC NG (09:04)
[2025-03-30] MEDS: ASCORBIC ACID 250 MG TABLET 500 MG NG ×2 (09:05→20:38)
[2025-03-30] MEDS: amLODIPine BESYLATE 5 MG TABLET 10 MG NG (09:05)
[2025-03-30] MEDS: ZINC SULFATE 220 MG CAPSULE NG (09:05)
[2025-03-30] MEDS: AMIODARONE HCL 200 MG TABLET NG (09:05)
[2025-03-30] MEDS: LANSOPRAZOLE 30 MG TAB.RAP.DR NG (09:05)
[2025-03-30] MEDS: INSULIN GLARGINE (Lantus) 5 UNIT/0.05 ML (PER 5 UNITS) 38 UNIT SC (09:06)
--- NOTE | 2025-03-30 10:02 | PC.CC ---
Addendum entered by Mandy Pinzon RN 03/30/25 16:00: Transfer cancelled per Dr. Haas Original Note: Spoke to Dr. Bay regarding status of transfer. I advised multiple Tertiary centers have declined. He stated they will speak to family and give them update and discuss goals of care today.
--- NOTE | 2025-03-30 11:10 | ESPR_ITS ---
<Statement entered by Lorri Bay MD - 03/31/25 17:51> Patient was seen and examined at bedside, agree on the assessment and plan on this note. - Patient's plan and care discussed with my attending, Dr. Samina Bay MD Internal Medicine PGY-2 Documentation for date of: 03/30/25 Subjective Subjective Interval history: Pt examined at bedside today. No acute overnight events. Pt's sodium is 141 today, Cr 1.4. Pt still on NG feedings. Family present at bedside and was given up dates. Will continue NG feedings, may decrease water flushes tomorrow. Pt back on ventilator, off blow by for some time. Will continue to try to transfer patient, however no facilities have accepted patient at this time. Exam Vital Signs Temp Pulse Resp BP Pulse Ox O2 Del Method O2 Flow Rate 97.4 F 94 18 134/84 H 96 Blow-by 10 03/30/25 08:00 03/30/25 09:05 03/30/25 08:00 03/30/25 09:05 03/30/25 08:00 03/30/25 04:00 03/30/25 06:56 FiO2 40 03/30/25 06:56 Narrative Exam General: AAOx3, in mild distress, severely morbidly obese HEENT: Dry mucous membranes, conjunctiva clear, EOMI, PERRLA, trachestomy Cardiovascular: Ejection systolic murmur, radial pulses +2 bilat, irregularly irregular, Pulmonary: FiO2 40, Rate 10, PEEP 8, TV 420, on blow-by GI: No tenderness to light or deep palpitation, no guarding, rigidity, rebound tenderness or distension Extremities: +2 Pitting edema in lower extremities bilaterally, dorsalis pedis pulses +2 bilaterally Back: [place] present Neuro: AAOx3, no focal motor or sensory deficits in the UE or LE bilat Objective Labs 03/31/25 04:37 03/31/25 04:37 Labs: Laboratory Results - last 24 hr 03/30/25 06:05 WBC 10.4 RBC 3.81 L Hgb 10.8 L Hct 35.9 L MCV 94 MCH 28.3 MCHC 30.1 L RDW Std Deviation 50.7 H Plt Count 270 Neut % (Auto) 78 Lymph % (Auto) 8 L [place] % (Auto) 11 Eos % (Auto) 3 Baso % (Auto) 0 Neut # (Auto) 8.0 H Lymph # (Auto) 0.8 L [place] # (Auto) 1.2 H Eos # (Auto) 0.3 Baso # (Auto) 0.0 Immature Gran # (Auto) 0.03 H Absolute Nucleated RBC 0.00 Immature Gran % 0 Nucleated RBC % 0 Sodium 141 Potassium 4.0 Chloride 101 Carbon Dioxide 32.8 H Anion Gap 7 BUN 37 H Creatinine 1.4 H Estim Creat Clear Calc 88.3 eGFR 56 L BUN/Creatinine Ratio 26 H Glucose 205 H Calculated Osmolality 295 Calcium 8.4 Corrected Calcium 9.2 Phosphorus 3.5 Magnesium 1.8 Total Bilirubin 0.6 AST 19 ALT 11 Alkaline Phosphatase 135 H Total Protein 5.7 Albumin 3.0 L Globulin 2.7 Albumin/Globulin Ratio 1.1 L ABG Interpretation ABG results: 02/27/25 02/28/25 03/01/25 06:55 04:57 04:39 ABG pH 7.27 L 7.37 D 7.41 ABG pCO2 57 H 48 44 ABG pO2 101 78 L D 69 L ABG HCO3 26 28 H 28 H ABG O2 Saturation 98 95 93 ABG Base Excess -2 2 3 VBG pH VBG pCO2 VBG pO2 VBG Base Excess 03/01/25 03/01/25 03/02/25 13:15 14:52 04:25 ABG pH Cancelled 7.41 7.45 ABG pCO2 Cancelled 45 42 ABG pO2 Cancelled 53 L* 66 L ABG HCO3 Cancelled 28 H 29 H ABG O2 Saturation Cancelled 85 L 92 ABG Base Excess Cancelled 3 5 H VBG pH VBG pCO2 VBG pO2 VBG Base Excess 03/03/25 03/05/25 03/05/25 04:40 16:30 16:55 ABG pH 7.45 Cancelled 7.34 L D ABG pCO2 43 Cancelled 72 H* D ABG pO2 72 L Cancelled 83 ABG HCO3 30 H Cancelled 38 H ABG O2 Saturation 94 Cancelled 95 ABG Base Excess 5 H Cancelled 9 H VBG pH VBG pCO2 VBG pO2 VBG Base Excess 03/05/25 03/06/25 03/06/25 23:36 01:48 05:22 ABG pH 7.37 7.34 L 7.52 H D ABG pCO2 67 H 74 H* 47 D ABG pO2 150 H D 88 D 160 H D ABG HCO3 38 H 40 H 38 H ABG O2 Saturation 99 H 96 100 H ABG Base Excess 10 H 11 H 13 H VBG pH VBG pCO2 VBG pO2 VBG Base Excess 03/06/25 03/07/25 03/07/25 17:10 05:00 14:03 ABG pH 7.46 H ABG pCO2 53 H ABG pO2 65 L D ABG HCO3 38 H ABG O2 Saturation 93 ABG Base Excess 12 H VBG pH 7.50 7.52 VBG pCO2 50 47 VBG pO2 70 H 61 H VBG Base Excess 13 H 14 H 03/09/25 03/09/25 03/09/25 08:17 10:25 17:29 ABG pH 7.25 L D 7.29 L 7.29 L ABG pCO2 93 H* D 85 H* 88 H* ABG pO2 81 L 57 L* D 85 D ABG HCO3 41 H 40 H 43 H ABG O2 Saturation 95 89 L 97 ABG Base Excess 10 H 10 H 12 H VBG pH VBG pCO2 VBG pO2 VBG Base Excess 03/09/25 03/10/25 03/10/25 23:24 07:17 11:25 ABG pH 7.32 L 7.28 L 7.31 L ABG pCO2 78 H* D 90 H* D 81 H* ABG pO2 69 L 47 L* D 63 L ABG HCO3 40 H 43 H 41 H ABG O2 Saturation 94 80 L 93 ABG Base Excess 11 H 12 H 11 H VBG pH VBG pCO2 VBG pO2 VBG Base Excess 03/10/25 03/11/25 03/12/25 16:56 04:19 04:42 ABG pH 7.40 7.48 H 7.43 ABG pCO2 66 H D 54 H D 59 H ABG pO2 68 L 67 L 77 L ABG HCO3 41 H 40 H 39 H ABG O2 Saturation 94 94 96 ABG Base Excess 13 H 15 H 12 H VBG pH VBG pCO2 VBG pO2 VBG Base Excess 03/13/25 03/14/25 03/15/25 04:32 04:25 04:37 ABG pH 7.47 H 7.46 H 7.41 ABG pCO2 53 H 50 H 56 H ABG pO2 60 L 70 L 69 L ABG HCO3 38 H 36 H 35 H ABG O2 Saturation 93 95 95 ABG Base Excess 13 H 10 H 9 H VBG pH VBG pCO2 VBG pO2 VBG Base Excess 03/16/25 03/16/25 03/17/25 04:54 09:53 04:35 ABG pH 7.45 7.48 H 7.47 H ABG pCO2 51 H 49 H 53 H ABG pO2 68 L 34 L* D 87 D ABG HCO3 35 H 37 H 38 H ABG O2 Saturation 95 67 L 97 ABG Base Excess 10 H 12 H 13 H VBG pH VBG pCO2 VBG pO2 VBG Base Excess 03/18/25 03/19/25 03/26/25 04:26 05:00 08:20 ABG pH 7.44 7.45 7.46 H ABG pCO2 57 H 55 H 54 H ABG pO2 107 D 73 L D 79 L ABG HCO3 38 H 38 H 38 H ABG O2 Saturation 99 H 96 97 ABG Base Excess 12 H 12 H 12 H VBG pH VBG pCO2 VBG pO2 VBG Base Excess Quality Measures Quality Measures sepsis Current suspected stage: ruled out Possible source: pulmonary Blood cultures ordered: completed in ED Antibiotic ordered: No Advance care planning discussed with:: patient Assessment & Plan Assessment Current Active Medications: Generic Name Dose Route Start Last Admin Trade Name Freq PRN Reason Stop Dose Admin Hydrocodone Bitart/Acetaminophen 1 tab 03/26/25 07:57 03/26/25 08:33 Hydrocodone/Apap 5/325 Tablet GT 03/31/25 07:56 1 tab Q4HR PRN Administration PAIN Protocol Amiodarone HCl 200 mg 03/24/25 09:45 03/30/25 09:05 Amiodarone Hcl 200 Mg Tablet NG 03/31/25 08:59 200 mg QDAY KOURTNEY Administration Amlodipine Besylate 10 mg 03/24/25 09:45 03/30/25 09:05 Amlodipine Besylate 5 Mg Tablet NG 04/19/25 23:34 10 mg DAILY KOURTNEY Administration Ascorbic Acid 500 mg 03/27/25 12:00 03/30/25 09:05 Ascorbic Acid 250 Mg Tablet NG 04/26/25 11:59 500 mg BID KOURTNEY Administration Bumetanide 2 mg 03/17/25 21:00 03/18/25 21:28 Bumetanide Inj 0.25 Mg/Ml Vial 4 Ml IVP 04/16/25 20:59 2 mg BID KOURTNEY Administration Cyclobenzaprine HCl 5 mg 03/26/25 08:25 Cyclobenzaprine 5 Mg Tablet PO 04/25/25 08:24 TID PRN MUSCLE SPASMS Protocol Dextrose 25 ml 03/03/25 08:20 Dextrose 50%-Water Inj 50 Ml Syringe IV 04/02/25 08:19 Q15MIN PRN BG 50-70 responsive npo pt Dextrose 50 ml 03/03/25 08:20 Dextrose 50%-Water Inj 50 Ml Syringe IV 04/02/25 08:19 Q15MIN PRN BG <50 OR BG <70 & pt unresponsive Glucagon 1 mg 03/03/25 08:20 Glucagon Inj 1 Mg Vial IM Q15MIN PRN BG <70, and no IV access Insulin Glargine 38 unit 03/30/25 09:00 03/30/25 09:06 Insulin Glargine (Lantus) 5 Unit/0.05 Ml (Per 5 Units) SC 04/29/25 08:59 38 unit QDAY KOURTNEY Administration Insulin Human Lispro 0 unit 03/25/25 12:00 03/30/25 05:13 Insulin Lispro (Admelog) 1 Unit/0.01 Ml Unit SC 04/24/25 11:59 2 unit Q6HR KOURTNEY Administration Protocol Lansoprazole 30 mg 03/23/25 09:30 03/30/25 09:05 Lansoprazole 30 Mg Tab.Rap.Dr NG 04/21/25 08:59 30 mg QDAY KOURTNEY Administration Multivitamins/Minerals 15 ml 03/27/25 12:00 03/30/25 09:04 Multivitamin 15 Ml Udc NG 04/26/25 11:59 15 ml QDAY KOURTNEY Administration Ondansetron HCl 4 mg 03/05/25 20:46 03/09/25 03:49 Ondansetron Inj 2 Mg/Ml Inj 2 Ml IV 04/04/25 20:45 4 mg Q6HR PRN Administration NAUSEA OR VOMITING Protocol Rivaroxaban 20 mg 03/23/25 17:30 03/29/25 17:18 Rivaroxaban 10 Mg Tablet GT 04/03/25 17:29 20 mg WSUPPER KOURTNEY Administration Zinc Sulfate 220 mg 03/27/25 12:00 03/30/25 09:05 Zinc Sulfate 220 Mg Capsule NG 04/10/25 11:59 220 mg QDAY KOURTNEY Administration Plan Assessment 64-year-old male with past medical history of DM2, hypertension, A-fib, and Jehova's witness was admitted to the ICU on 02/27/2025 for shock and acute hypoxic respiratory failure. We had goals of care conversation with family, they will need time to decide if they will decide on hospice or IR Jejunostomy. Hospice to discuss with patient's parents later today. Initiating transfer for higher level of care at this time for Jejunostomy. 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 NG placement lost, unable to replace. DR. Doty consulted and will re-insert NG tube. General surgery, IR unable to do J- tube given history of daniel-en-y gastric bypass. Patient would benefit from TPN/PPN. Resumed tube feeds via NG tube Glucerna IR unable to put in PICC line today for TPN Continues to be on blow-by. Did not tolerate PMS valve, as per speech therapist patient will need time to adjust further tracheostomy before the trial of PNS. Will reevaluate if the patient tolerated the PMS we will do another session of speech evaluation, the patient unable to perform the speech evaluation we will transfer the patient to higher level of care for placement of PEG tube versus duodenojejunostomy. Patient will work with speech therapy to see if patient's dysphagia improves Patient will likely fail, and also will likely require tracheostomy due to respiratory failure Patient will need IR or surgical jejunostomy or PEG placement due to history of Daniel-en-Y Patient appears to display decision-making capacity, and expresses wanting to be transferred for jejunostomy At this time we will hold off on hospice and initiate transfer orders Pt continues to take NG tube out, will place soft restraints at this time. Pt is complying with directions at this time and is agreeable to NG tube placement Plan: ? 2Cal RN via NG tube, 320 cc every 2 hours for water flushes ? Multivitamin ? Pending transfer for higher level of care for PEG placement or jejunostomy #Right diastolic CHF, improved Echo could not visualize all chambers with limited ability to determine patient's ejection fraction. Given body habitus, history of obstructive sleep apnea and obesity hypoventilation syndrome, right heart failure suspected. Lower pedal edema likely combination of heart failure and third spacing. [place] 03/15 showed elevated RAP 25 PAP 38 PCWP 23. [place] 03/16/2025 PCWP 9 (=17-8) [place] 03/19/2025: RAP 8, PAP 27, PCWP 7 Dry weight: 197.9 Dry BNP 135 High cardiac output Continuing water flushes at this time at 100 cc an hour, will have to do body weights to assess for urine output as patient does not have Fuller or condom catheter at this time His weight today is 201 kg Consult with nephro and cardio if we need diuresis Plan: ? Cardiology consulted, appreciate recs ? Continuing to hold Bumex - Daily weights - Strict I&O #Hx of A-fib [id number] score of 3 points indicating 3.2% risk of stroke per year HAS-BLED: 0 Plan: - Continue PO amiodarone 200 mg qday with small sips of water ? Potassium and magnesium above 4 and 2 respectively - Resumed Xarelto ? Telemetry #Acute on chronic hypoxic and hypercapnic respiratory failure #Obesity hypoventilation syndrome and obstructive sleep apnea #Community-acquired pneumonia, Enterobacter [place] #Tracheostomy Patient was intubated on 02/27/2025, extubated 03/03/2025. Reintubated on 03/06/2025 and extubated 03/07/2025. Reintubated 03/10/2025 for hypercapnic encephalopathy Tracheostomy tube placed 03/15 [place] 03/19/2025 PEEP 8, RR 10, FiO2 40, TV 420 Blow-by during the day, ventilation at night Plan: ? Ventilatory support at bedtime, blow-by during the day. - Continue vent, wean as tolerated #KENIA improving #Hypokalemia #Hypernatremia #Metabolic alkalosis Pre-renal from cardiorenal and edema in the setting of third spacing, low albumin. Bumex drip discontinued. Right heart cath shows CVP 8, shows appropriate diuresis, however patient will need some fluid at this time Unable to assess urine output as the penile area is retracted, there is also a wound from the pure wick during his stay, the patient is immobile. Will continue to monitor his intake, at this time his on water flushes 100 mL/h in addition to his 65 mL/h tube feed. Will decrease water flushes as seen with we reached to goal of sodium level. Creatinine 1.5 today Plan: - Nephrology following, Dr. Gannon, appreciate recommendations ? Continue with water flushes 320 cc every 2 hours for water flushes #Hypernatremia, Hyper-osmolar Sodium 141 today May decrease water flushes tomorrow Plan: ? 320 cc every 2 hours for water flushes ? Trend with CMP #Decubitus ulcer Patient will likely have worsening of this ulcer, it is not great for yet at this point however due to patient's immobility we can anticipate this will worsen Plan: ? Monitor as patient is refusing care at this time ? Monitor for signs of infection ? Wound care ? Wound care vitamins including zinc, multivitamin and vitamin C #Morbid obesity #DM2 A1C 7.6 on 03/05/2025 Patient has a BMI of 79.5 Plan: - ISS scale 2 - Hypoglycemia protocol ordered ? 35 units of Lantus #Normocytic Anemia likely secondary to anemia of chronic disease given normal MCV. No acute intervention, continue to monitor #Leukocytosis, resolved #Enterobacter [place] pneumonia, resolved. Finished Rocephin (03/06/2025) - Cefepime 03/18/2025, completed #Acute encephalopathy, resolved #Health Maintenance Disposition: Telemetry DVT prophylaxis: Xarelto GI prophylaxis: Protonix Diet: NG tube feeds with 2Cal with 320 cc every 2 hours for water flushes CODE STATUS: Full Patient seen and care discussed with my attending physician, Dr. Samina Shields, PGY-1 Attending Provider Attestation/Addendum I have examined the patient, reviewed labs and imaging findings, discussed the case with the resident(s), and reviewed entered orders. I agree with the plan of care as outlined in this note, with these additional summaries/recommendations: Patient seen at bedside. No acute overnight events. Patient unfortunately was not accepted for transfer for IR jejunostomy placement. We will continue tube feeds via NG tube. It is not ideal to keep prolonging feeds via NG tube although we have no other option at this time. Patient unfortunately cannot be placed to a subacute without a feeding tube and will remain hospitalized for now. We are working with case management for possible placement with hospice. Patient's parents updated at bedside and in agreement. Continue artificial nutrition via NG tube and free water flushes. Hypernatremia now resolved. Continue wound care for decubitus ulcer. Continue basal bolus insulin for diabetes mellitus type 2. Continue Xarelto and amiodarone for atrial fibrillation. Continue zinc and vitamin C for wound healing. Repeat chemistry and hematology panel in AM. Please see residents note for additional details of management. Dr. Samina MD
[2025-03-30] MEDS: RIVAROXABAN 10 MG TABLET 20 MG GT (17:35)
--- NOTE | 2025-03-30 19:21 | ESPR_ITS ---
Documentation for date of: 03/30/25 Subjective Subjective Interval history: Patient evaluated Being fed through the NGT Exam Vital Signs Temp Pulse Resp BP Pulse Ox O2 Del Method O2 Flow Rate 97.0 F 104 H 19 144/90 H 98 Nasal Cannula 10 03/30/25 16:00 03/30/25 16:00 03/30/25 16:00 03/30/25 16:00 03/30/25 16:00 03/30/25 16:00 03/30/25 06:56 FiO2 35 03/30/25 12:23 Objective Labs 03/30/25 06:05 03/30/25 06:05 Labs: Laboratory Results - last 24 hr 03/30/25 06:05 WBC 10.4 RBC 3.81 L Hgb 10.8 L Hct 35.9 L MCV 94 MCH 28.3 MCHC 30.1 L RDW Std Deviation 50.7 H Plt Count 270 Neut % (Auto) 78 Lymph % (Auto) 8 L [place] % (Auto) 11 Eos % (Auto) 3 Baso % (Auto) 0 Neut # (Auto) 8.0 H Lymph # (Auto) 0.8 L [place] # (Auto) 1.2 H Eos # (Auto) 0.3 Baso # (Auto) 0.0 Immature Gran # (Auto) 0.03 H Absolute Nucleated RBC 0.00 Immature Gran % 0 Nucleated RBC % 0 Sodium 141 Potassium 4.0 Chloride 101 Carbon Dioxide 32.8 H Anion Gap 7 BUN 37 H Creatinine 1.4 H Estim Creat Clear Calc 88.3 eGFR 56 L BUN/Creatinine Ratio 26 H Glucose 205 H Calculated Osmolality 295 Calcium 8.4 Corrected Calcium 9.2 Phosphorus 3.5 Magnesium 1.8 Total Bilirubin 0.6 AST 19 ALT 11 Alkaline Phosphatase 135 H Total Protein 5.7 Albumin 3.0 L Globulin 2.7 Albumin/Globulin Ratio 1.1 L Impressions Impression: Enteral feeding through the NGT Continue current management ABG Interpretation ABG results: 02/27/25 02/28/25 03/01/25 06:55 04:57 04:39 ABG pH 7.27 L 7.37 D 7.41 ABG pCO2 57 H 48 44 ABG pO2 101 78 L D 69 L ABG HCO3 26 28 H 28 H ABG O2 Saturation 98 95 93 ABG Base Excess -2 2 3 VBG pH VBG pCO2 VBG pO2 VBG Base Excess 03/01/25 03/01/25 03/02/25 13:15 14:52 04:25 ABG pH Cancelled 7.41 7.45 ABG pCO2 Cancelled 45 42 ABG pO2 Cancelled 53 L* 66 L ABG HCO3 Cancelled 28 H 29 H ABG O2 Saturation Cancelled 85 L 92 ABG Base Excess Cancelled 3 5 H VBG pH VBG pCO2 VBG pO2 VBG Base Excess 03/03/25 03/05/25 03/05/25 04:40 16:30 16:55 ABG pH 7.45 Cancelled 7.34 L D ABG pCO2 43 Cancelled 72 H* D ABG pO2 72 L Cancelled 83 ABG HCO3 30 H Cancelled 38 H ABG O2 Saturation 94 Cancelled 95 ABG Base Excess 5 H Cancelled 9 H VBG pH VBG pCO2 VBG pO2 VBG Base Excess 03/05/25 03/06/25 03/06/25 23:36 01:48 05:22 ABG pH 7.37 7.34 L 7.52 H D ABG pCO2 67 H 74 H* 47 D ABG pO2 150 H D 88 D 160 H D ABG HCO3 38 H 40 H 38 H ABG O2 Saturation 99 H 96 100 H ABG Base Excess 10 H 11 H 13 H VBG pH VBG pCO2 VBG pO2 VBG Base Excess 03/06/25 03/07/25 03/07/25 17:10 05:00 14:03 ABG pH 7.46 H ABG pCO2 53 H ABG pO2 65 L D ABG HCO3 38 H ABG O2 Saturation 93 ABG Base Excess 12 H VBG pH 7.50 7.52 VBG pCO2 50 47 VBG pO2 70 H 61 H VBG Base Excess 13 H 14 H 03/09/25 03/09/25 03/09/25 08:17 10:25 17:29 ABG pH 7.25 L D 7.29 L 7.29 L ABG pCO2 93 H* D 85 H* 88 H* ABG pO2 81 L 57 L* D 85 D ABG HCO3 41 H 40 H 43 H ABG O2 Saturation 95 89 L 97 ABG Base Excess 10 H 10 H 12 H VBG pH VBG pCO2 VBG pO2 VBG Base Excess 04/26/25 04/27/25 04/27/25 23:24 07:17 11:25 ABG pH 7.32 L 7.28 L 7.31 L ABG pCO2 78 H* D 90 H* D 81 H* ABG pO2 69 L 47 L* D 63 L ABG HCO3 40 H 43 H 41 H ABG O2 Saturation 94 80 L 93 ABG Base Excess 11 H 12 H 11 H VBG pH VBG pCO2 VBG pO2 VBG Base Excess 03/10/25 03/11/25 03/12/25 16:56 04:19 04:42 ABG pH 7.40 7.48 H 7.43 ABG pCO2 66 H D 54 H D 59 H ABG pO2 68 L 67 L 77 L ABG HCO3 41 H 40 H 39 H ABG O2 Saturation 94 94 96 ABG Base Excess 13 H 15 H 12 H VBG pH VBG pCO2 VBG pO2 VBG Base Excess 03/13/25 03/14/25 03/15/25 04:32 04:25 04:37 ABG pH 7.47 H 7.46 H 7.41 ABG pCO2 53 H 50 H 56 H ABG pO2 60 L 70 L 69 L ABG HCO3 38 H 36 H 35 H ABG O2 Saturation 93 95 95 ABG Base Excess 13 H 10 H 9 H VBG pH VBG pCO2 VBG pO2 VBG Base Excess 03/16/25 03/16/25 03/17/25 04:54 09:53 04:35 ABG pH 7.45 7.48 H 7.47 H ABG pCO2 51 H 49 H 53 H ABG pO2 68 L 34 L* D 87 D ABG HCO3 35 H 37 H 38 H ABG O2 Saturation 95 67 L 97 ABG Base Excess 10 H 12 H 13 H VBG pH VBG pCO2 VBG pO2 VBG Base Excess 03/18/25 03/19/25 03/26/25 04:26 05:00 08:20 ABG pH 7.44 7.45 7.46 H ABG pCO2 57 H 55 H 54 H ABG pO2 107 D 73 L D 79 L ABG HCO3 38 H 38 H 38 H ABG O2 Saturation 99 H 96 97 ABG Base Excess 12 H 12 H 12 H VBG pH VBG pCO2 VBG pO2 VBG Base Excess Assessment & Plan A&P Narrative 64-year-old male with significant past medical history of hypertension, diabetes mellitus, A-fib was admitted to the ICU on 02/27/2025 after coming in with altered mental status and shortness of breath, intubated for acute hypoxic respiratory failure and had suspected obesity hypoventilation syndrome/obstructive sleep apnea/pneumonia and acute kidney injury. He was extubated on 03/03 and downgraded then re-intubated on 03/06 due to confusion and tachypneia. He was then extubated and downgraded to the floor on 03/07. On 03/10, patient again had decreased mentation on the BiPAP so was reintubated and upgraded. Cardiology has been consulted for suspected heart failure. #Right congestive heart failure with preserved EF. #Severe BASIA/OHS. #Hypernatremia. Echo on this admission showed poor quality images secondary to the patient's body habitus so was a technically limited study. Suspect chronic right heart failure in the setting of chronic obesity hypoventilation syndrome and obstructive sleep apnea. Currently appears to be more pulmonary component to respiratory failure than cardiac. Requiring ventilation support. -Echo 02/27/25: IVC appears to be dilated and also estimated RVSP also appears to be at least moderately elevated at 55 mmHg. 03/14/25: Will hold dirutics for now , he was given IV fluids yesterday. 03/15/25 : [place] catheter was placed by ICU team which showed PA pressure of more than 30s and wedge pressure was also high . started him on bumex drip . will continue the albumin . he is getting his peg tube today 03/16/25: ICU team tried another [place] catheter today which showed RA pressure of 25, PA pressure of 38, PCWP of 23. Plan is to continue Bumex for him. Cr stable at 2.5 03/17/2025: Net fluid balance -3350 cc. ICU team held Bumex due to significant electrolyte abnormalities, potassium 2.7. Once repleted Bumex drip will be resumed. Continue current management and monitor patient. 03/18/2025: net fluid balance -1650 , he received 1 dose of diamox yesterday. will continue to diures, he is off ventillor in blowby with PRN ventillator when he gets tired. 03/19/2025: no acute overnight event.Balance of -950 . ICU team put a swan catheter which showed he is adequately diressed for now, so bumex on hold for now. pending pegtube placement, its been difficult to do the procedure consedering his Rouxy history. Plan: 03/20/2025: Will hold dirutics for now, he was given IV LR and FWF via NG for hypernatremia. 03/21/2025: no acute overnight event. free water flushes increase today for hypernatremia . Xarelto resumed . bumex on hold ,Dr Doty recommending jejunostomy placement. #Atrial fibrillation, rate controlled. Patient notes positive history of afib. He had previously been on metoprolol succinate 100 mg BID. Currently appears rate-controlled in the 100s. CHADS-VASc score 4 Plan: - Metoprolol on hold in setting of right heart failure . -Resume Xarelto. -Continue amiodarone 200 mg qday. -Keep potassium >4.0 and mag >2.0. Rest of conditions to continue current management per primary team: #Acute hypoxic respiratory failure s/p tracheostomy. #Morbid obesity. #Community acquired pneumonia. #Elevated LFTs, resolved. #Hyperbilirubinemia, resolved. #History of type 2 diabetes. #Lactic acidosis, resolved. #KENIA on CKD. 03/22/2025: Patient has tracheostomy inplace and is unable to communicate much Telemetry reviewed and rest of the vital signs including the heart rate appears to be stable. Labs showed that the patient still continues to have hyponatremia at 150 and also has elevated creatinine at 2.6 and a BUN of 66. Patient is on renal water flushes for the hyponatremia and creatinine continues to improve and baseline creatinine appears to be around 2.0 Recommend to continue with free water flushes for now. Patient is morbidly obese with multiple comorbidities as mentioned below and overall prognosis appears to be poor Primary team to discuss with the family regarding goals of care. Management of rest of the medical conditions as per primary team and other consultants. Thank you for the consult and allowing me to participate in the care of the patient. Cardiology will continue to follow. Kobe Barahona M.D. Interventional Cardiology Time Spent With Patient Time: Total time spent is greater than 50% in coordination of care (as documented) at patient's floor/unit and/or counseling patient:
[2025-03-31] VITALS (11 sets, daily range): BP systolic 96–158; BP diastolic 63–92; PULSE 86–101; RESP 12–23; TEMP 36–36.6; O2SAT 94–99; BMI 69.5
--- NOTE | 2025-03-31 00:40 | ESPR_ITS ---
RE: KOFI CRAWFORD : 1960 DATE OF SERVICE: 03/30/2025 SUBJECTIVE: Kofi Crawford has a history of morbid obesity, multiple medical problems including congestive heart failure with preserved ejection fraction, morbid obesity, respiratory failure requiring tracheostomy, and hyperalbuminemia. He continues to have problems with dysphagia. He still has a tracheostomy. PEG tube failed because of ruined by bypass surgery. He has a small NG tube in place now. He has chronic diastolic heart failure, has right heart failure with general edema. He was diuresed aggressively and now is stable, not having any other issues. Cardiac rebollar, the patient remains in A-Fib, rate controlled well. OBJECTIVE: Vital Signs: His vital signs remain stable. Blood pressure is 120/80, pulse rate is 97. Neck: Supple. Lungs: Decreased breath sounds. Heart: S1, S2 regular. Abdomen: Thin and soft. Extremities: Chronic edema. /Rectal: Not performed. LABORATORY DATA: Lab review showed his creatinine is 1.4, BUN 37, sodium down to 141 now. Hemoglobin is stable. Labs are back to baseline. ASSESSMENT: 1. Chronic diastolic heart failure. 2. Predominant heart failure. 3. Mild nutritional hypoalbuminemia. 4. Morbid obesity. 5. Hypoxic respiratory failure secondary to multiple problems requiring tracheostomy. RECOMMENDATIONS: 1. Continue medical management. Rate controlled well. The patient is awaiting also placement for intermediate and rehabilitation. DT: 23:36:38 TT: 00:07:00 Ref: [id number] - TID: [id number]
[2025-03-31 06:05] LABS: Basophils % (Auto) 0 % (0-2.5); Eosinophils # (Auto) 0.3 Thou/mm3 (0.0-0.5); Eosinophils % (Auto) 3 % (0-10); Hematocrit 36.8 % (41.0-53.0); Hemoglobin 11.1 g/dL (13.5-16.0); Immature Granulocytes % (Auto) 1 % (0-0); Immature Granulocytes Auto 0.06 Thou/mm3 (0.00-0.00); Lymphocytes # (Auto) 1.1 Thou/mm3 (1.0-4.8); Lymphocytes % (Auto) 11 % (10-50); Mean Corpuscular HGB Conc 30.2 g/dl (31.0-37.0); Mean Corpuscular Hemoglobin 28.3 pg (25.0-35.0); Mean Corpuscular Volume 94 fL (80-100); Monocytes # (Auto) 1.2 Thou/mm3 (0.0-0.8); Monocytes % (Auto) 13 % (0-12); Neutrophils # (Auto) 7.1 Thou/mm3 (1.8-7.7); Neutrophils % (Auto) 73 % (37-80); Nucleated Red Blood Cell % 0 /100 WBC (0); Platelet Count 168 Thou/mm3 (140-440); RDW Standard Deviation 50.7 fL (35.1-43.9); Red Blood Count 3.92 Miln/mm3 (4.50-5.90); White Blood Count 9.8 Thou/mm3 (3.8-10.6)
[2025-03-31 06:31] LABS: Alanine Aminotransferase 11 U/L (10-49); Albumin/Globulin Ratio 1.1 (1.2-2.2); Alkaline Phosphatase 145 U/L (46-116); Anion Gap 6 (7-16); Aspartate Amino Transferase 22 U/L (0-34); BUN/Creatinine Ratio 27 Ratio (12-20); Bilirubin,Total 0.5 mg/dL (0.3-1.2); Blood Urea Nitrogen 35 mg/dL (9-23); Calcium 8.3 mg/dL (8.3-10.6); Calcium (Corrected) 9.1 mg/dL (8.5-10.1); Carbon Dioxide 33.4 mMol/L (20.0-31.0); Chloride 100 mMol/L (98-107); Creatinine (Component) 1.3 mg/dL (0.6-1.3); Globulin 2.7 gm/dL (2.3-3.5); Glucose 161 mg/dL (74-106); Magnesium 1.8 mg/dL (1.6-2.6); Osmolality,Calculated 288 (275-295); Phosphorous 3.6 mg/dL (2.4-5.1); Potassium 4.1 mMol/L (3.4-5.1); Sodium 139 mMol/L (136-145); Total Protein 5.7 gm/dL (5.7-8.2); eGFR > 60 See Note
--- NOTE | 2025-03-31 07:21 | ESPR_ITS ---
Documentation for date of: 03/31/25 Subjective Subjective Interval history: Pt examined at bedside today. No acute overnight events. Pt's sodium today is 139. Continuing to wait for transfer at this time. No other complaints at this time. Exam Vital Signs Temp Pulse Resp BP Pulse Ox O2 Del Method O2 Flow Rate 97.9 F 101 H 15 96/63 97 Mechanical Ventilation 10 03/31/25 04:00 03/31/25 07:07 03/31/25 04:00 03/31/25 04:00 03/31/25 07:07 03/31/25 04:00 03/31/25 04:00 FiO2 35 03/31/25 07:07 Narrative Exam General: AAOx3, in mild distress, severely morbidly obese HEENT: Dry mucous membranes, conjunctiva clear, EOMI, PERRLA, trachestomy Cardiovascular: Ejection systolic murmur, radial pulses +2 bilat, irregularly irregular, Pulmonary: FiO2 40, Rate 10, PEEP 8, TV 420, on blow-by GI: No tenderness to light or deep palpitation, no guarding, rigidity, rebound tenderness or distension Extremities: +2 Pitting edema in lower extremities bilaterally, dorsalis pedis pulses +2 bilaterally Back: [place] present Neuro: AAOx3, no focal motor or sensory deficits in the UE or LE bilat Objective Labs 04/01/25 05:12 04/01/25 05:12 Labs: Laboratory Results - last 24 hr 03/30/25 03/31/25 06:05 04:37 WBC 9.8 RBC 3.92 L Hgb 11.1 L Hct 36.8 L MCV 94 MCH 28.3 MCHC 30.2 L RDW Std Deviation 50.7 H Plt Count 168 D Neut % (Auto) 73 Lymph % (Auto) 11 Vernon % (Auto) 13 H Eos % (Auto) 3 Baso % (Auto) 0 Neut # (Auto) 7.1 Lymph # (Auto) 1.1 Vernon # (Auto) 1.2 H Eos # (Auto) 0.3 Baso # (Auto) 0.0 Immature Gran # (Auto) 0.06 H Absolute Nucleated RBC 0.00 Immature Gran % 1 H Nucleated RBC % 0 Sodium 141 139 Potassium 4.0 4.1 Chloride 101 100 Carbon Dioxide 32.8 H 33.4 H Anion Gap 7 6 L BUN 37 H 35 H Creatinine 1.4 H 1.3 Estim Creat Clear Calc 88.3 95.0 eGFR 56 L > 60 BUN/Creatinine Ratio 26 H 27 H Glucose 205 H 161 H Calculated Osmolality 295 288 Calcium 8.4 8.3 Corrected Calcium 9.2 9.1 Phosphorus 3.5 3.6 Magnesium 1.8 1.8 Total Bilirubin 0.6 0.5 AST 19 22 ALT 11 11 Alkaline Phosphatase 135 H 145 H Total Protein 5.7 5.7 Albumin 3.0 L 3.0 L Globulin 2.7 2.7 Albumin/Globulin Ratio 1.1 L 1.1 L ABG Interpretation ABG results: 02/27/25 02/28/25 03/01/25 06:55 04:57 04:39 ABG pH 7.27 L 7.37 D 7.41 ABG pCO2 57 H 48 44 ABG pO2 101 78 L D 69 L ABG HCO3 26 28 H 28 H ABG O2 Saturation 98 95 93 ABG Base Excess -2 2 3 VBG pH VBG pCO2 VBG pO2 VBG Base Excess 03/01/25 03/01/25 03/02/25 13:15 14:52 04:25 ABG pH Cancelled 7.41 7.45 ABG pCO2 Cancelled 45 42 ABG pO2 Cancelled 53 L* 66 L ABG HCO3 Cancelled 28 H 29 H ABG O2 Saturation Cancelled 85 L 92 ABG Base Excess Cancelled 3 5 H VBG pH VBG pCO2 VBG pO2 VBG Base Excess 03/03/25 03/05/25 03/05/25 04:40 16:30 16:55 ABG pH 7.45 Cancelled 7.34 L D ABG pCO2 43 Cancelled 72 H* D ABG pO2 72 L Cancelled 83 ABG HCO3 30 H Cancelled 38 H ABG O2 Saturation 94 Cancelled 95 ABG Base Excess 5 H Cancelled 9 H VBG pH VBG pCO2 VBG pO2 VBG Base Excess 03/05/25 03/06/25 03/06/25 23:36 01:48 05:22 ABG pH 7.37 7.34 L 7.52 H D ABG pCO2 67 H 74 H* 47 D ABG pO2 150 H D 88 D 160 H D ABG HCO3 38 H 40 H 38 H ABG O2 Saturation 99 H 96 100 H ABG Base Excess 10 H 11 H 13 H VBG pH VBG pCO2 VBG pO2 VBG Base Excess 03/06/25 03/07/25 03/07/25 17:10 05:00 14:03 ABG pH 7.46 H ABG pCO2 53 H ABG pO2 65 L D ABG HCO3 38 H ABG O2 Saturation 93 ABG Base Excess 12 H VBG pH 7.50 7.52 VBG pCO2 50 47 VBG pO2 70 H 61 H VBG Base Excess 13 H 14 H 03/09/25 03/09/25 03/09/25 08:17 10:25 17:29 ABG pH 7.25 L D 7.29 L 7.29 L ABG pCO2 93 H* D 85 H* 88 H* ABG pO2 81 L 57 L* D 85 D ABG HCO3 41 H 40 H 43 H ABG O2 Saturation 95 89 L 97 ABG Base Excess 10 H 10 H 12 H VBG pH VBG pCO2 VBG pO2 VBG Base Excess 03/09/25 03/10/25 03/10/25 23:24 07:17 11:25 ABG pH 7.32 L 7.28 L 7.31 L ABG pCO2 78 H* D 90 H* D 81 H* ABG pO2 69 L 47 L* D 63 L ABG HCO3 40 H 43 H 41 H ABG O2 Saturation 94 80 L 93 ABG Base Excess 11 H 12 H 11 H VBG pH VBG pCO2 VBG pO2 VBG Base Excess 03/10/25 03/11/25 03/12/25 16:56 04:19 04:42 ABG pH 7.40 7.48 H 7.43 ABG pCO2 66 H D 54 H D 59 H ABG pO2 68 L 67 L 77 L ABG HCO3 41 H 40 H 39 H ABG O2 Saturation 94 94 96 ABG Base Excess 13 H 15 H 12 H VBG pH VBG pCO2 VBG pO2 VBG Base Excess 03/13/25 03/14/25 03/15/25 04:32 04:25 04:37 ABG pH 7.47 H 7.46 H 7.41 ABG pCO2 53 H 50 H 56 H ABG pO2 60 L 70 L 69 L ABG HCO3 38 H 36 H 35 H ABG O2 Saturation 93 95 95 ABG Base Excess 13 H 10 H 9 H VBG pH VBG pCO2 VBG pO2 VBG Base Excess 03/16/25 03/16/25 03/17/25 04:54 09:53 04:35 ABG pH 7.45 7.48 H 7.47 H ABG pCO2 51 H 49 H 53 H ABG pO2 68 L 34 L* D 87 D ABG HCO3 35 H 37 H 38 H ABG O2 Saturation 95 67 L 97 ABG Base Excess 10 H 12 H 13 H VBG pH VBG pCO2 VBG pO2 VBG Base Excess 03/18/25 03/19/25 03/26/25 04:26 05:00 08:20 ABG pH 7.44 7.45 7.46 H ABG pCO2 57 H 55 H 54 H ABG pO2 107 D 73 L D 79 L ABG HCO3 38 H 38 H 38 H ABG O2 Saturation 99 H 96 97 ABG Base Excess 12 H 12 H 12 H VBG pH VBG pCO2 VBG pO2 VBG Base Excess Quality Measures Quality Measures sepsis Current suspected stage: ruled out Possible source: pulmonary Blood cultures ordered: completed in ED Antibiotic ordered: No Advance care planning discussed with:: patient Assessment & Plan Assessment Current Active Medications: Generic Name Dose Route Start Last Admin Trade Name Freq PRN Reason Stop Dose Admin Hydrocodone Bitart/Acetaminophen 1 tab 03/26/25 07:57 03/26/25 08:33 Hydrocodone/Apap 5/325 Tablet GT 03/31/25 07:56 1 tab Q4HR PRN Administration PAIN Protocol Amiodarone HCl 200 mg 03/24/25 09:45 03/30/25 09:05 Amiodarone Hcl 200 Mg Tablet NG 03/31/25 08:59 200 mg QDAY KOURTNEY Administration Amlodipine Besylate 10 mg 03/31/25 07:21 Amlodipine Besylate 5 Mg Tablet NG 04/19/25 23:34 DAILY KOURTNEY Ascorbic Acid 500 mg 03/27/25 12:00 03/30/25 20:38 Ascorbic Acid 250 Mg Tablet NG 04/26/25 11:59 500 mg BID KOURTNEY Administration Bumetanide 2 mg 03/17/25 21:00 03/18/25 21:28 Bumetanide Inj 0.25 Mg/Ml Vial 4 Ml IVP 04/16/25 20:59 2 mg BID KOURTNEY Administration Cyclobenzaprine HCl 5 mg 03/26/25 08:25 Cyclobenzaprine 5 Mg Tablet PO 04/25/25 08:24 TID PRN MUSCLE SPASMS Protocol Dextrose 25 ml 03/03/25 08:20 Dextrose 50%-Water Inj 50 Ml Syringe IV 04/02/25 08:19 Q15MIN PRN BG 50-70 responsive npo pt Dextrose 50 ml 03/03/25 08:20 Dextrose 50%-Water Inj 50 Ml Syringe IV 04/02/25 08:19 Q15MIN PRN BG <50 OR BG <70 & pt unresponsive Glucagon 1 mg 03/03/25 08:20 Glucagon Inj 1 Mg Vial IM Q15MIN PRN BG <70, and no IV access Insulin Glargine 38 unit 03/30/25 09:00 03/30/25 09:06 Insulin Glargine (Lantus) 5 Unit/0.05 Ml (Per 5 Units) SC 04/29/25 08:59 38 unit QDAY KOURTNEY Administration Insulin Human Lispro 0 unit 03/25/25 12:00 03/31/25 05:07 Insulin Lispro (Admelog) 1 Unit/0.01 Ml Unit SC 04/24/25 11:59 Not Given Q6HR KOURTNEY Protocol Lansoprazole 30 mg 03/23/25 09:30 03/30/25 09:05 Lansoprazole 30 Mg Tab.Rap.Dr CHAPIN 04/21/25 08:59 30 mg QDAY KOURTNEY Administration Multivitamins/Minerals 15 ml 03/27/25 12:00 03/30/25 09:04 Multivitamin 15 Ml Udc NG 04/26/25 11:59 15 ml QDAY KOURTNEY Administration Ondansetron HCl 4 mg 03/05/25 20:46 03/09/25 03:49 Ondansetron Inj 2 Mg/Ml Inj 2 Ml IV 04/04/25 20:45 4 mg Q6HR PRN Administration NAUSEA OR VOMITING Protocol Rivaroxaban 20 mg 03/23/25 17:30 03/30/25 17:35 Rivaroxaban 10 Mg Tablet GT 04/03/25 17:29 20 mg WSUPPER KOURTNEY Administration Zinc Sulfate 220 mg 03/27/25 12:00 03/30/25 09:05 Zinc Sulfate 220 Mg Capsule NG 04/10/25 11:59 220 mg QDAY KOURTNEY Administration Plan Assessment 64-year-old male with past medical history of DM2, hypertension, A-fib, and Jehova's witness was admitted to the ICU on 02/27/2025 for shock and acute hypoxic respiratory failure. We had goals of care conversation with family, they will need time to decide if they will decide on hospice or IR Jejunostomy. Hospice to discuss with patient's parents later today. Initiating transfer for higher level of care at this time for Jejunostomy. 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 NG placement lost, unable to replace. DR. Doty consulted and will re-insert NG tube. General surgery, IR unable to do J- tube given history of daniel-en-y gastric bypass. Patient would benefit from TPN/PPN. Resumed tube feeds via NG tube Glucerna IR unable to put in PICC line today for TPN Continues to be on blow-by. Did not tolerate PMS valve, as per speech therapist patient will need time to adjust further tracheostomy before the trial of PNS. Will reevaluate if the patient tolerated the PMS we will do another session of speech evaluation, the patient unable to perform the speech evaluation we will transfer the patient to higher level of care for placement of PEG tube versus duodenojejunostomy. Patient will work with speech therapy to see if patient's dysphagia improves Patient will likely fail, and also will likely require tracheostomy due to respiratory failure Patient will need IR or surgical jejunostomy or PEG placement due to history of Daniel-en-Y Patient appears to display decision-making capacity, and expresses wanting to be transferred for jejunostomy At this time we will hold off on hospice and initiate transfer orders Pt continues to take NG tube out, will place soft restraints at this time. Pt is complying with directions at this time and is agreeable to NG tube placement Plan: ? 2Cal RN via NG tube, 320 cc every 2 hours for water flushes ? Multivitamin ? Pending transfer for higher level of care for PEG placement or jejunostomy #Right diastolic CHF, improved Echo could not visualize all chambers with limited ability to determine patient's ejection fraction. Given body habitus, history of obstructive sleep apnea and obesity hypoventilation syndrome, right heart failure suspected. Lower pedal edema likely combination of heart failure and third spacing. [place] 03/15 showed elevated RAP 25 PAP 38 PCWP 23. [place] 03/16/2025 PCWP 9 (=17-8) [place] 03/19/2025: RAP 8, PAP 27, PCWP 7 Dry weight: 197.9 Dry BNP 135 High cardiac output Continuing water flushes at this time at 100 cc an hour, will have to do body weights to assess for urine output as patient does not have Fuller or condom catheter at this time His weight today is 201 kg Consult with nephro and cardio if we need diuresis Plan: ? Cardiology consulted, appreciate recs ? Continuing to hold Bumex - Daily weights - Strict I&O #Hx of A-fib [id number] score of 3 points indicating 3.2% risk of stroke per year HAS-BLED: 0 Plan: - Continue PO amiodarone 200 mg qday with small sips of water ? Potassium and magnesium above 4 and 2 respectively - Resumed Xarelto ? Telemetry #Acute on chronic hypoxic and hypercapnic respiratory failure #Obesity hypoventilation syndrome and obstructive sleep apnea #Community-acquired pneumonia, Enterobacter [place] #Tracheostomy Patient was intubated on 02/27/2025, extubated 03/03/2025. Reintubated on 03/06/2025 and extubated 03/07/2025. Reintubated 03/10/2025 for hypercapnic encephalopathy Tracheostomy tube placed 03/15 [place] 03/19/2025 PEEP 8, RR 10, FiO2 40, TV 420 Blow-by during the day, ventilation at night Plan: ? Ventilatory support at bedtime, blow-by during the day. - Continue vent, wean as tolerated #KENIA improving #Hypokalemia #Hypernatremia #Metabolic alkalosis Pre-renal from cardiorenal and edema in the setting of third spacing, low albumin. Bumex drip discontinued. Right heart cath shows CVP 8, shows appropriate diuresis, however patient will need some fluid at this time Unable to assess urine output as the penile area is retracted, there is also a wound from the pure wick during his stay, the patient is immobile. Will continue to monitor his intake, at this time his on water flushes 100 mL/h in addition to his 65 mL/h tube feed. Will decrease water flushes as seen with we reached to goal of sodium level. Creatinine 1.3 today Plan: - Nephrology following, Dr. Gannon, appreciate recommendations ? Continue with water flushes 320 cc every 2 hours for water flushes #Hypernatremia, Hyper-osmolar Sodium 141 today May decrease water flushes tomorrow Plan: ? 320 cc every 2 hours for water flushes ? Trend with CMP #Decubitus ulcer Patient will likely have worsening of this ulcer, it is not great for yet at this point however due to patient's immobility we can anticipate this will worsen Plan: ? Monitor as patient is refusing care at this time ? Monitor for signs of infection ? Wound care ? Wound care vitamins including zinc, multivitamin and vitamin C #Morbid obesity #DM2 A1C 7.6 on 03/05/2025 Patient has a BMI of 79.5 Plan: - ISS scale 2 - Hypoglycemia protocol ordered ? 35 units of Lantus #Normocytic Anemia likely secondary to anemia of chronic disease given normal MCV. No acute intervention, continue to monitor #Leukocytosis, resolved #Enterobacter cloacoe pneumonia, resolved. Finished Rocephin (03/06/2025) - Cefepime 03/18/2025, completed #Acute encephalopathy, resolved #Health Maintenance Disposition: Telemetry DVT prophylaxis: Xarelto GI prophylaxis: Protonix Diet: NG tube feeds with 2Cal with 320 cc every 2 hours for water flushes CODE STATUS: Full Patient seen and care discussed with my attending physician, Dr. Samina Shields, PGY-1 Attending Provider Attestation/Addendum I have examined the patient, reviewed labs and imaging findings, discussed the case with the resident(s), and reviewed entered orders. I agree with the plan of care as outlined in this note, with these additional summaries/recommendations: Patient seen at bedside. No acute overnight events. Patient unfortunately was not accepted for transfer for IR jejunostomy placement. We will continue tube feeds via NG tube. It is not ideal to keep prolonging feeds via NG tube although we have no other option at this time. Patient unfortunately cannot be placed to a subacute without a feeding tube and will remain hospitalized for now. We are working with case management for possible placement with hospice. Patient's parents updated at bedside and in agreement. Continue artificial nutrition via NG tube and free water flushes. Hypernatremia now resolved. Continue wound care for decubitus ulcer. Continue basal bolus insulin for diabetes mellitus type 2. Continue Xarelto and amiodarone for atrial fibrillation. Continue zinc and vitamin C for wound healing. Repeat chemistry and hematology panel in AM. Please see residents note for additional details of management. Dr. Samina MD
[2025-03-31] MEDS: MULTIVITAMIN 15 ML UDC NG (07:24)
[2025-03-31] MEDS: ZINC SULFATE 220 MG CAPSULE NG (07:25)
[2025-03-31] MEDS: LANSOPRAZOLE 30 MG TAB.RAP.DR NG (07:25)
[2025-03-31] MEDS: ASCORBIC ACID 250 MG TABLET 500 MG NG ×2 (07:26→20:21)
[2025-03-31] MEDS: amLODIPine BESYLATE 5 MG TABLET 10 MG NG (07:26)
[2025-03-31] MEDS: INSULIN GLARGINE (Lantus) 5 UNIT/0.05 ML (PER 5 UNITS) 38 UNIT SC (07:27)
--- NOTE | 2025-03-31 16:23 | PC.NURSE ---
[facility]25 from 0900 to 0622.
--- NOTE | 2025-03-31 16:28 | PC.NURSE ---
[facility] downtime occurred on 03/31/25 from 0900 to 1622
[2025-03-31] MEDS: RIVAROXABAN 10 MG TABLET 20 MG GT (17:36)
--- NOTE | 2025-03-31 21:23 | PD.IMPROG ---
Documentation for date of: 03/31/25 Subjective Subjective Interval history: Patient evaluated Being fed through the NGT Exam Vital Signs Temp Pulse Resp BP Pulse Ox O2 Del Method O2 Flow Rate 96.8 F 86 19 138/87 H 99 Mechanical Ventilation 10 03/31/25 16:00 03/31/25 16:00 03/31/25 16:00 03/31/25 16:00 03/31/25 16:00 03/31/25 16:00 03/31/25 16:00 FiO2 35 03/31/25 16:00 Objective Labs 03/31/25 04:37 03/31/25 04:37 Labs: Laboratory Results - last 24 hr 03/31/25 04:37 WBC 9.8 RBC 3.92 L Hgb 11.1 L Hct 36.8 L MCV 94 MCH 28.3 MCHC 30.2 L RDW Std Deviation 50.7 H Plt Count 168 D Neut % (Auto) 73 Lymph % (Auto) 11 Mccone % (Auto) 13 H Eos % (Auto) 3 Baso % (Auto) 0 Neut # (Auto) 7.1 Lymph # (Auto) 1.1 Mccone # (Auto) 1.2 H Eos # (Auto) 0.3 Baso # (Auto) 0.0 Immature Gran # (Auto) 0.06 H Absolute Nucleated RBC 0.00 Immature Gran % 1 H Nucleated RBC % 0 Sodium 139 Potassium 4.1 Chloride 100 Carbon Dioxide 33.4 H Anion Gap 6 L BUN 35 H Creatinine 1.3 Estim Creat Clear Calc 95.0 eGFR > 60 BUN/Creatinine Ratio 27 H Glucose 161 H Calculated Osmolality 288 Calcium 8.3 Corrected Calcium 9.1 Phosphorus 3.6 Magnesium 1.8 Total Bilirubin 0.5 AST 22 ALT 11 Alkaline Phosphatase 145 H Total Protein 5.7 Albumin 3.0 L Globulin 2.7 Albumin/Globulin Ratio 1.1 L Impressions Impression: Failure to thrive Dysphagia Enteral feeding through the NGT to continue till better day events can be made ABG Interpretation ABG results: 02/27/25 02/28/25 03/01/25 06:55 04:57 04:39 ABG pH 7.27 L 7.37 D 7.41 ABG pCO2 57 H 48 44 ABG pO2 101 78 L D 69 L ABG HCO3 26 28 H 28 H ABG O2 Saturation 98 95 93 ABG Base Excess -2 2 3 VBG pH VBG pCO2 VBG pO2 VBG Base Excess 03/01/25 03/01/25 03/02/25 13:15 14:52 04:25 ABG pH Cancelled 7.41 7.45 ABG pCO2 Cancelled 45 42 ABG pO2 Cancelled 53 L* 66 L ABG HCO3 Cancelled 28 H 29 H ABG O2 Saturation Cancelled 85 L 92 ABG Base Excess Cancelled 3 5 H VBG pH VBG pCO2 VBG pO2 VBG Base Excess 03/03/25 03/05/25 03/05/25 04:40 16:30 16:55 ABG pH 7.45 Cancelled 7.34 L D ABG pCO2 43 Cancelled 72 H* D ABG pO2 72 L Cancelled 83 ABG HCO3 30 H Cancelled 38 H ABG O2 Saturation 94 Cancelled 95 ABG Base Excess 5 H Cancelled 9 H VBG pH VBG pCO2 VBG pO2 VBG Base Excess 03/05/25 03/06/25 03/06/25 23:36 01:48 05:22 ABG pH 7.37 7.34 L 7.52 H D ABG pCO2 67 H 74 H* 47 D ABG pO2 150 H D 88 D 160 H D ABG HCO3 38 H 40 H 38 H ABG O2 Saturation 99 H 96 100 H ABG Base Excess 10 H 11 H 13 H VBG pH VBG pCO2 VBG pO2 VBG Base Excess 03/06/25 03/07/25 03/07/25 17:10 05:00 14:03 ABG pH 7.46 H ABG pCO2 53 H ABG pO2 65 L D ABG HCO3 38 H ABG O2 Saturation 93 ABG Base Excess 12 H VBG pH 7.50 7.52 VBG pCO2 50 47 VBG pO2 70 H 61 H VBG Base Excess 13 H 14 H 03/09/25 03/09/25 03/09/25 08:17 10:25 17:29 ABG pH 7.25 L D 7.29 L 7.29 L ABG pCO2 93 H* D 85 H* 88 H* ABG pO2 81 L 57 L* D 85 D ABG HCO3 41 H 40 H 43 H ABG O2 Saturation 95 89 L 97 ABG Base Excess 10 H 10 H 12 H VBG pH VBG pCO2 VBG pO2 VBG Base Excess 03/09/25 03/10/2525 23:24 07:17 11:25 ABG pH 7.32 L 7.28 L 7.31 L ABG pCO2 78 H* D 90 H* D 81 H* ABG pO2 69 L 47 L* D 63 L ABG HCO3 40 H 43 H 41 H ABG O2 Saturation 94 80 L 93 ABG Base Excess 11 H 12 H 11 H VBG pH VBG pCO2 VBG pO2 VBG Base Excess 03/10/25 03/11/25 03/12/25 16:56 04:19 04:42 ABG pH 7.40 7.48 H 7.43 ABG pCO2 66 H D 54 H D 59 H ABG pO2 68 L 67 L 77 L ABG HCO3 41 H 40 H 39 H ABG O2 Saturation 94 94 96 ABG Base Excess 13 H 15 H 12 H VBG pH VBG pCO2 VBG pO2 VBG Base Excess 03/13/25 03/14/25 03/15/25 04:32 04:25 04:37 ABG pH 7.47 H 7.46 H 7.41 ABG pCO2 53 H 50 H 56 H ABG pO2 60 L 70 L 69 L ABG HCO3 38 H 36 H 35 H ABG O2 Saturation 93 95 95 ABG Base Excess 13 H 10 H 9 H VBG pH VBG pCO2 VBG pO2 VBG Base Excess 03/16/25 03/16/25 03/17/25 04:54 09:53 04:35 ABG pH 7.45 7.48 H 7.47 H ABG pCO2 51 H 49 H 53 H ABG pO2 68 L 34 L* D 87 D ABG HCO3 35 H 37 H 38 H ABG O2 Saturation 95 67 L 97 ABG Base Excess 10 H 12 H 13 H VBG pH VBG pCO2 VBG pO2 VBG Base Excess 03/18/25 03/19/25 03/26/25 04:26 05:00 08:20 ABG pH 7.44 7.45 7.46 H ABG pCO2 57 H 55 H 54 H ABG pO2 107 D 73 L D 79 L ABG HCO3 38 H 38 H 38 H ABG O2 Saturation 99 H 96 97 ABG Base Excess 12 H 12 H 12 H VBG pH VBG pCO2 VBG pO2 VBG Base Excess Assessment & Plan A&P Narrative 64-year-old male with significant past medical history of hypertension, diabetes mellitus, A-fib was admitted to the ICU on 02/27/2025 after coming in with altered mental status and shortness of breath, intubated for acute hypoxic respiratory failure and had suspected obesity hypoventilation syndrome/obstructive sleep apnea/pneumonia and acute kidney injury. He was extubated on 03/03 and downgraded then re-intubated on 03/06 due to confusion and tachypneia. He was then extubated and downgraded to the floor on 03/07. On 03/10, patient again had decreased mentation on the BiPAP so was reintubated and upgraded. Cardiology has been consulted for suspected heart failure. #Right congestive heart failure with preserved EF. #Severe BASIA/OHS. #Hypernatremia. Echo on this admission showed poor quality images secondary to the patient's body habitus so was a technically limited study. Suspect chronic right heart failure in the setting of chronic obesity hypoventilation syndrome and obstructive sleep apnea. Currently appears to be more pulmonary component to respiratory failure than cardiac. Requiring ventilation support. -Echo 02/27/25: IVC appears to be dilated and also estimated RVSP also appears to be at least moderately elevated at 55 mmHg. 03/14/25: Will hold dirutics for now , he was given IV fluids yesterday. 03/15/25 : [place] catheter was placed by ICU team which showed PA pressure of more than 30s and wedge pressure was also high . started him on bumex drip . will continue the albumin . he is getting his peg tube today 03/16/25: ICU team tried another [place] catheter today which showed RA pressure of 25, PA pressure of 38, PCWP of 23. Plan is to continue Bumex for him. Cr stable at 2.5 03/17/2025: Net fluid balance -3350 cc. ICU team held Bumex due to significant electrolyte abnormalities, potassium 2.7. Once repleted Bumex drip will be resumed. Continue current management and monitor patient. 03/18/2025: net fluid balance -1650 , he received 1 dose of diamox yesterday. will continue to diures, he is off ventillor in blowby with PRN ventillator when he gets tired. 03/19/2025: no acute overnight event.Balance of -950 . ICU team put a [place] catheter which showed he is adequately diressed for now, so bumex on hold for now. pending pegtube placement, its been difficult to do the procedure consedering his Rouxy history. Plan: 03/20/2025: Will hold dirutics for now, he was given IV LR and FWF via NG for hypernatremia. 03/21/2025: no acute overnight event. free water flushes increase today for hypernatremia . Xarelto resumed . bumex on hold ,Dr Doty recommending jejunostomy placement. #Atrial fibrillation, rate controlled. Patient notes positive history of afib. He had previously been on metoprolol succinate 100 mg BID. Currently appears rate-controlled in the 100s. CHADS-VASc score 4 Plan: - Metoprolol on hold in setting of right heart failure . -Resume Xarelto. -Continue amiodarone 200 mg qday. -Keep potassium >4.0 and mag >2.0. Rest of conditions to continue current management per primary team: #Acute hypoxic respiratory failure s/p tracheostomy. #Morbid obesity. #Community acquired pneumonia. #Elevated LFTs, resolved. #Hyperbilirubinemia, resolved. #History of type 2 diabetes. #Lactic acidosis, resolved. #KENIA on CKD. 03/22/2025: Patient has tracheostomy inplace and is unable to communicate much Telemetry reviewed and rest of the vital signs including the heart rate appears to be stable. Labs showed that the patient still continues to have hyponatremia at 150 and also has elevated creatinine at 2.6 and a BUN of 66. Patient is on renal water flushes for the hyponatremia and creatinine continues to improve and baseline creatinine appears to be around 2.0 Recommend to continue with free water flushes for now. Patient is morbidly obese with multiple comorbidities as mentioned below and overall prognosis appears to be poor Primary team to discuss with the family regarding goals of care. Management of rest of the medical conditions as per primary team and other consultants. Thank you for the consult and allowing me to participate in the care of the patient. Cardiology will continue to follow. Kobe Barahona M.D. Interventional Cardiology Time Spent With Patient Time: Total time spent is greater than 50% in coordination of care (as documented) at patient's floor/unit and/or counseling patient:
[2025-04-01] VITALS (13 sets, daily range): BP systolic 119–150; BP diastolic 85–94; PULSE 88–107; RESP 14–28; TEMP 35.9–36.6; O2SAT 95–99; BMI 69.5
--- NOTE | 2025-04-01 01:48 | ESPR_ITS ---
RE: KOFI CRAWFORD : 1960 DATE OF SERVICE: 03/31/2025 SUBJECTIVE: Kofi Crawford appears to be doing a little better today, but still is chronically ill, unable to ambulate, getting out of bed. The patient is unable to transfer. The patient is awaiting transfer at this time. He does not complain of any bleeding issues. No chest pain or shortness of breath. Remains in AFib rate control. OBJECTIVE: General: Exam shows morbidly obese male, chronically ill. Neck: Supple. Lung: Decreased breath sounds. Heart: Sounds irregular. Atrial fibrillation. Systolic murmur heard. Abdomen: Obese, soft. Extremities: Mild chronic edema improved. LABORATORY DATA: Hemoglobin 11.1 stable. Creatinine 1.3, stable. ASSESSMENT: 1. Atrial fibrillation, stable. 2. Congestive heart failure with preserved ejection fraction. 3. Morbid obesity. 4. Status post gastric bypass surgery. 5. Hyponatremia and acid-base imbalance corrected. RECOMMENDATIONS: The patient is awaiting transfer to a alf facility for further management. DT: 23:22:06 TT: 01:35:00 Ref: [id number] - TID: [id number]
[2025-04-01 06:58] LABS: Basophils % (Auto) 0 % (0-2.5); Eosinophils # (Auto) 0.3 Thou/mm3 (0.0-0.5); Eosinophils % (Auto) 4 % (0-10); Hematocrit 33.5 % (41.0-53.0); Hemoglobin 10.3 g/dL (13.5-16.0); Immature Granulocytes % (Auto) 1 % (0-0); Immature Granulocytes Auto 0.05 Thou/mm3 (0.00-0.00); Lymphocytes # (Auto) 1.1 Thou/mm3 (1.0-4.8); Lymphocytes % (Auto) 13 % (10-50); Mean Corpuscular HGB Conc 30.7 g/dl (31.0-37.0); Mean Corpuscular Hemoglobin 28.3 pg (25.0-35.0); Mean Corpuscular Volume 92 fL (80-100); Monocytes # (Auto) 1.2 Thou/mm3 (0.0-0.8); Monocytes % (Auto) 15 % (0-12); Neutrophils # (Auto) 5.8 Thou/mm3 (1.8-7.7); Neutrophils % (Auto) 68 % (37-80); Nucleated Red Blood Cell % 0 /100 WBC (0); Platelet Count 290 Thou/mm3 (140-440); RDW Standard Deviation 49.8 fL (35.1-43.9); Red Blood Count 3.64 Miln/mm3 (4.50-5.90); White Blood Count 8.5 Thou/mm3 (3.8-10.6)
[2025-04-01 07:06] LABS: Alanine Aminotransferase 11 U/L (10-49); Albumin/Globulin Ratio 1.2 (1.2-2.2); Alkaline Phosphatase 143 U/L (46-116); Anion Gap 6 (7-16); Aspartate Amino Transferase 22 U/L (0-34); BUN/Creatinine Ratio 28 Ratio (12-20); Bilirubin,Total 0.5 mg/dL (0.3-1.2); Blood Urea Nitrogen 34 mg/dL (9-23); Calcium 8.2 mg/dL (8.3-10.6); Carbon Dioxide 33.1 mMol/L (20.0-31.0); Chloride 98 mMol/L (98-107); Creatinine (Component) 1.2 mg/dL (0.6-1.3); Globulin 2.5 gm/dL (2.3-3.5); Glucose 178 mg/dL (74-106); Magnesium 1.7 mg/dL (1.6-2.6); Osmolality,Calculated 285 (275-295); Phosphorous 3.2 mg/dL (2.4-5.1); Potassium 3.9 mMol/L (3.4-5.1); Sodium 137 mMol/L (136-145); Total Protein 5.5 gm/dL (5.7-8.2); eGFR > 60 See Note
[2025-04-01] MEDS: Magnesium Sulfate 2 GM Ivpb 2 GM/50 ML BAG IV (08:50)
[2025-04-01] MEDS: ZINC SULFATE 220 MG CAPSULE NG (08:52)
[2025-04-01] MEDS: amLODIPine BESYLATE 5 MG TABLET 10 MG NG (08:52)
[2025-04-01] MEDS: MULTIVITAMIN 15 ML UDC NG (08:52)
[2025-04-01] MEDS: ASCORBIC ACID 250 MG TABLET 500 MG NG ×2 (08:53→20:39)
[2025-04-01] MEDS: LANSOPRAZOLE 30 MG TAB.RAP.DR NG (09:03)
[2025-04-01] MEDS: INSULIN GLARGINE (Lantus) 5 UNIT/0.05 ML (PER 5 UNITS) 38 UNIT SC (09:19)
--- NOTE | 2025-04-01 10:01 | PC.SS ---
Follow up note: Pt has been put back on the vent at night. Speech evaluation pending (check if pt can swallow). SS spoke to Kaleigh from [facility] who explained they are unable to accept pt under Hospice only comfort care and they are unable to accept NG tubes. SS spoke to Rosa from [facility] about pt going to LTAC and she explained pt has to be getting better to consider LTAC. Will attempt to wean pt off trach. SS spoke to physician about working with RT to attempt to wean pt off trach.
--- NOTE | 2025-04-01 12:06 | XR_ITS ---
Examination: Venous duplex upper extremity sonogram, bilateral. Date and time of exam: April 01, 2025 1301 hours INDICATIONS: Bilateral arm edema this week Technique: Multiple sonographic images of the deep venous system have been obtained. B-mode/2-D grayscale imaging of vascular structures and Doppler spectral analysis (waveforms) and color performed Both legs are examined. Findings: Positive for DVT in the right internal jugular vein Remaining right upper extremity venous system is open Normal left arm deep venous system IMPRESSION: Positive for occlusive thrombus in the right internal jugular vein
--- NOTE | 2025-04-01 12:18 | ESPR_ITS ---
<Statement entered by Lenora John MD - 04/02/25 08:29> Patient is examined primary team and also with the resident physician patient is clinically stable however has a lot of fluid retention especially in the flank region probably good idea to start back on bumetanide p.o. 2 mg daily because of the significant edema and electrolyte imbalance has been corrected. Agree with the treatment plan recommendation as documented by Dr. Isaac PGY 2 Documentation for date of: 04/01/25 Subjective Subjective Interval history: Patient was seen and examined at bedside. No acute overnight events. Patient was switched from blow-by to mechanical ventilation again due to drop in saturation. Patient might benefit from Bumex, his sodium is 137 and edema is still pretty significant. His vitals are stable, blood pressure 123/86. Pending placement. Exam Vital Signs Temp Pulse Resp BP Pulse Ox O2 Del Method O2 Flow Rate 97.5 F 106 H 19 123/86 H 96 Mechanical Ventilation 10 04/01/25 08:00 04/01/25 12:01 04/01/25 08:00 04/01/25 08:52 04/01/25 12:01 04/01/25 08:00 03/31/25 16:00 FiO2 50 04/01/25 12:01 Narrative Exam Gen: Well-developed and well-nourished morbidly obese male. NG tube in place. HEENT: NCAT, PERRLA, EOMI, MMM, anicteric conjunctivae, tracheostomy in place. CVS: Decreased heart sounds, normal S1 and S2. RRR. No M/R/G. Resp: Decreased breath sounds B/L. No rhonchi, rales, crackles or wheezing. Abd: soft, morbidly obese, non-tender, non-distended. BS+ in all 4 quadrants. Pitting edema over bilateral flanks and sides. MSK: Good ROM in BUE & BLE. 2+ pitting edema BLE. Neuro: Limited exam due to medical condition. Objective Labs 04/01/25 05:12 04/01/25 05:12 Labs: Laboratory Results - last 24 hr 04/01/25 05:12 WBC 8.5 RBC 3.64 L Hgb 10.3 L Hct 33.5 L MCV 92 MCH 28.3 MCHC 30.7 L RDW Std Deviation 49.8 H Plt Count 290 D Neut % (Auto) 68 Lymph % (Auto) 13 Murray % (Auto) 15 H Eos % (Auto) 4 Baso % (Auto) 0 Neut # (Auto) 5.8 Lymph # (Auto) 1.1 Murray # (Auto) 1.2 H Eos # (Auto) 0.3 Baso # (Auto) 0.0 Immature Gran # (Auto) 0.05 H Absolute Nucleated RBC 0.00 Immature Gran % 1 H Nucleated RBC % 0 Sodium 137 Potassium 3.9 Chloride 98 Carbon Dioxide 33.1 H Anion Gap 6 L BUN 34 H Creatinine 1.2 Estim Creat Clear Calc 103.0 eGFR > 60 BUN/Creatinine Ratio 28 H Glucose 178 H Calculated Osmolality 285 Calcium 8.2 L Corrected Calcium 9.0 Phosphorus 3.2 Magnesium 1.7 Total Bilirubin 0.5 AST 22 ALT 11 Alkaline Phosphatase 143 H Total Protein 5.5 L Albumin 3.0 L Globulin 2.5 Albumin/Globulin Ratio 1.2 ABG Interpretation ABG results: 02/27/25 02/28/25 03/01/25 06:55 04:57 04:39 ABG pH 7.27 L 7.37 D 7.41 ABG pCO2 57 H 48 44 ABG pO2 101 78 L D 69 L ABG HCO3 26 28 H 28 H ABG O2 Saturation 98 95 93 ABG Base Excess -2 2 3 VBG pH VBG pCO2 VBG pO2 VBG Base Excess 03/01/25 03/01/25 03/02/25 13:15 14:52 04:25 ABG pH Cancelled 7.41 7.45 ABG pCO2 Cancelled 45 42 ABG pO2 Cancelled 53 L* 66 L ABG HCO3 Cancelled 28 H 29 H ABG O2 Saturation Cancelled 85 L 92 ABG Base Excess Cancelled 3 5 H VBG pH VBG pCO2 VBG pO2 VBG Base Excess 03/03/25 03/05/25 03/05/25 04:40 16:30 16:55 ABG pH 7.45 Cancelled 7.34 L D ABG pCO2 43 Cancelled 72 H* D ABG pO2 72 L Cancelled 83 ABG HCO3 30 H Cancelled 38 H ABG O2 Saturation 94 Cancelled 95 ABG Base Excess 5 H Cancelled 9 H VBG pH VBG pCO2 VBG pO2 VBG Base Excess 03/05/25 03/06/25 03/06/25 23:36 01:48 05:22 ABG pH 7.37 7.34 L 7.52 H D ABG pCO2 67 H 74 H* 47 D ABG pO2 150 H D 88 D 160 H D ABG HCO3 38 H 40 H 38 H ABG O2 Saturation 99 H 96 100 H ABG Base Excess 10 H 11 H 13 H VBG pH VBG pCO2 VBG pO2 VBG Base Excess 03/06/25 03/07/25 03/07/25 17:10 05:00 14:03 ABG pH 7.46 H ABG pCO2 53 H ABG pO2 65 L D ABG HCO3 38 H ABG O2 Saturation 93 ABG Base Excess 12 H VBG pH 7.50 7.52 VBG pCO2 50 47 VBG pO2 70 H 61 H VBG Base Excess 13 H 14 H 03/09/25 03/09/25 03/09/25 08:17 10:25 17:29 ABG pH 7.25 L D 7.29 L 7.29 L ABG pCO2 93 H* D 85 H* 88 H* ABG pO2 81 L 57 L* D 85 D ABG HCO3 41 H 40 H 43 H ABG O2 Saturation 95 89 L 97 ABG Base Excess 10 H 10 H 12 H VBG pH VBG pCO2 VBG pO2 VBG Base Excess 03/09/25 03/10/25 03/10/25 23:24 07:17 11:25 ABG pH 7.32 L 7.28 L 7.31 L ABG pCO2 78 H* D 90 H* D 81 H* ABG pO2 69 L 47 L* D 63 L ABG HCO3 40 H 43 H 41 H ABG O2 Saturation 94 80 L 93 ABG Base Excess 11 H 12 H 11 H VBG pH VBG pCO2 VBG pO2 VBG Base Excess 03/10/25 03/11/25 03/12/25 16:56 04:19 04:42 ABG pH 7.40 7.48 H 7.43 ABG pCO2 66 H D 54 H D 59 H ABG pO2 68 L 67 L 77 L ABG HCO3 41 H 40 H 39 H ABG O2 Saturation 94 94 96 ABG Base Excess 13 H 15 H 12 H VBG pH VBG pCO2 VBG pO2 VBG Base Excess 03/13/25 03/14/25 03/15/25 04:32 04:25 04:37 ABG pH 7.47 H 7.46 H 7.41 ABG pCO2 53 H 50 H 56 H ABG pO2 60 L 70 L 69 L ABG HCO3 38 H 36 H 35 H ABG O2 Saturation 93 95 95 ABG Base Excess 13 H 10 H 9 H VBG pH VBG pCO2 VBG pO2 VBG Base Excess 03/16/25 03/16/25 03/17/25 04:54 09:53 04:35 ABG pH 7.45 7.48 H 7.47 H ABG pCO2 51 H 49 H 53 H ABG pO2 68 L 34 L* D 87 D ABG HCO3 35 H 37 H 38 H ABG O2 Saturation 95 67 L 97 ABG Base Excess 10 H 12 H 13 H VBG pH VBG pCO2 VBG pO2 VBG Base Excess 03/18/25 03/19/25 03/26/25 04:26 05:00 08:20 ABG pH 7.44 7.45 7.46 H ABG pCO2 57 H 55 H 54 H ABG pO2 107 D 73 L D 79 L ABG HCO3 38 H 38 H 38 H ABG O2 Saturation 99 H 96 97 ABG Base Excess 12 H 12 H 12 H VBG pH VBG pCO2 VBG pO2 VBG Base Excess Quality Measures Quality Measures sepsis Current suspected stage: sepsis Possible source: pulmonary Blood cultures ordered: completed in ED Antibiotic ordered: Yes Advance care planning discussed with:: patient Assessment & Plan Assessment Current Active Medications: Generic Name Dose Route Start Last Admin Trade Name Freq PRN Reason Stop Dose Admin Amlodipine Besylate 10 mg 03/31/25 07:30 04/01/25 08:52 Amlodipine Besylate 5 Mg Tablet NG 04/19/25 07:29 10 mg DAILY KOURTNEY Administration Ascorbic Acid 500 mg 03/27/25 12:00 04/01/25 08:53 Ascorbic Acid 250 Mg Tablet NG 04/26/25 11:59 500 mg BID KOURTNEY Administration Collagenase 0 gm 04/01/25 11:30 Collagenase Oint 30 Gm Tube TOP 05/01/25 11:29 DAILY KOURTNEY Cyclobenzaprine HCl 5 mg 03/26/25 08:25 Cyclobenzaprine 5 Mg Tablet PO 04/25/25 08:24 TID PRN MUSCLE SPASMS Protocol Dextrose 25 ml 03/03/25 08:20 Dextrose 50%-Water Inj 50 Ml Syringe IV 04/02/25 08:19 Q15MIN PRN BG 50-70 responsive npo pt Dextrose 50 ml 03/03/25 08:20 Dextrose 50%-Water Inj 50 Ml Syringe IV 04/02/25 08:19 Q15MIN PRN BG <50 OR BG <70 & pt unresponsive Glucagon 1 mg 03/03/25 08:20 Glucagon Inj 1 Mg Vial IM Q15MIN PRN BG <70, and no IV access Insulin Glargine 38 unit 03/30/25 09:00 04/01/25 09:19 Insulin Glargine (Lantus) 5 Unit/0.05 Ml (Per 5 Units) SC 04/29/25 08:59 38 unit QDAY KOURTNEY Administration Insulin Human Lispro 0 unit 03/25/25 12:00 04/01/25 07:51 Insulin Lispro (Admelog) 1 Unit/0.01 Ml Unit SC 04/24/25 11:59 Not Given Q6HR KOURTNEY Protocol Lansoprazole 30 mg 03/23/25 09:30 04/01/25 09:03 Lansoprazole 30 Mg Tab.Rap.Dr CHAPIN 04/21/25 08:59 30 mg QDAY KOURTNEY Administration Multivitamins/Minerals 15 ml 03/27/25 12:00 04/01/25 08:52 Multivitamin 15 Ml Udc NG 04/26/25 11:59 15 ml QDAY KOURTNEY Administration Ondansetron HCl 4 mg 03/05/25 20:46 03/09/25 03:49 Ondansetron Inj 2 Mg/Ml Inj 2 Ml IV 04/04/25 20:45 4 mg Q6HR PRN Administration NAUSEA OR VOMITING Protocol Rivaroxaban 20 mg 03/23/25 17:30 03/31/25 17:36 Rivaroxaban 10 Mg Tablet GT 04/03/25 17:29 20 mg WSUPPER KOURTNEY Administration Zinc Sulfate 220 mg 03/27/25 12:00 04/01/25 08:52 Zinc Sulfate 220 Mg Capsule NG 04/10/25 11:59 220 mg QDAY KOURTNEY Administration Plan 64-year-old male with significant past medical history of hypertension, diabetes mellitus, A-fib was admitted to the ICU on 02/27/2025 after coming in with altered mental status and shortness of breath, intubated for acute hypoxic respiratory failure and had suspected obesity hypoventilation syndrome/obstructive sleep apnea/pneumonia and acute kidney injury. He was extubated on 03/03 and downgraded then re-intubated on 03/06 due to confusion and tachypneia. He was then extubated and downgraded to the floor on 03/07. On 03/10, patient again had decreased mentation on the BiPAP so was reintubated and upgraded. Cardiology has been consulted for suspected heart failure. #Right congestive heart failure with preserved EF. #Severe BASIA/OHS. Echo on this admission showed poor quality images secondary to the patient's body habitus so was a technically limited study. Suspect chronic right heart failure in the setting of chronic obesity hypoventilation syndrome and obstructive sleep apnea. Currently appears to be more pulmonary component to respiratory failure than cardiac. Requiring ventilation support. -Echo 02/27/25: IVC appears to be dilated and also estimated RVSP also appears to be at least moderately elevated at 55 mmHg. 03/14/25: Will hold dirutics for now , he was given IV fluids yesterday. 03/15/25 : Bock catheter was placed by ICU team which showed PA pressure of more than 30s and wedge pressure was also high . started him on bumex drip . will continue the albumin . he is getting his peg tube today 03/16/25: ICU team tried another Bock catheter today which showed RA pressure of 25, PA pressure of 38, PCWP of 23. Plan is to continue Bumex for him. Cr stable at 2.5 03/17/2025: Net fluid balance -3350 cc. ICU team held Bumex due to significant electrolyte abnormalities, potassium 2.7. Once repleted Bumex drip will be resumed. Continue current management and monitor patient. 03/18/2025: net fluid balance -1650 , he received 1 dose of diamox yesterday. will continue to diures, he is off ventillor in blowby with PRN ventillator when he gets tired. 03/19/2025: no acute overnight event.Balance of -950 . ICU team put a swan catheter which showed he is adequately diressed for now, so bumex on hold for now. pending pegtube placement, its been difficult to do the procedure consedering his Rouxy history. Plan: 03/20/2025: Will hold dirutics for now, he was given IV LR and FWF via NG for hypernatremia. 03/21/2025: no acute overnight event. free water flushes increase today for hypernatremia . Xarelto resumed . bumex on hold ,Dr Doty recommending jejunostomy placement. 03/22/2025:Patient has tracheostomy inplace and is unable to communicate much Telemetry reviewed and rest of the vital signs including the heart rate appears to be stable. Labs showed that the patient still continues to have hyponatremia at 150 and also has elevated creatinine at 2.6 and a BUN of 66. Patient is on renal water flushes for the hyponatremia and creatinine continues to improve and baseline creatinine appears to be around 2.0 Recommend to continue with free water flushes for now. Patient is morbidly obese with multiple comorbidities as mentioned below and overall prognosis appears to be poor Primary team to discuss with the family regarding goals of care. 03/23/2025:Continued on free water flushes, sodium 150 > 149. Renal function showing minor improvement with BUN 63, CR 2.4, EGFR 29. Poor urine output. 2/3+ LE edema noted on exam again. Vitals relatively normal, BP 121/92, HR 98 although spikes of HR 120s noted on tele, continued on blow-by and satting well. ? Continue with free-water flushes, monitor renal function closely ? Continue AMIODARONE 200 mg daily ? Continue AMLODIPINE 10 mg daily ? Continue XARELTO 20 mg ? Okay holding BUMEX 2 mg IV BID as per nephro team, may need HD eventually if renally function not improving, kadi givens persisting edema. 03/25/2025: no acute overnight event, he was given diamox by nephrology speech therapist was at bedside , kidney function improving . Na is normal today at 143 . Bumex still on hold. .Continue amiodarone 200 mg daily, Amlodipine 10 mg daily, Continue XARELTO 20 mg 03/26/2025: no acute overnight event , primary team reffered him to hospice pending decision . Bumex still on hold. .Continue amiodarone 200 mg daily, Amlodipine 10 mg daily, Continue XARELTO 20 mg 03/27/2025: no acute overnight event . Bumex still on hold. .Continue amiodarone 200 mg daily, Amlodipine 10 mg daily, Continue XARELTO 20 mg, his na is 147 . pending disposition as pt patients need more time to decide. 03/28/2025: no acute overnight event . Bumex still on hold. .Continue amiodarone 200 mg daily, Amlodipine 10 mg daily, Continue XARELTO 20 mg, his na is 147 . pending disposition . 03/29/2025: no acute overnight event . Bumex still on hold. .Continue amiodarone 200 mg daily, Amlodipine 10 mg daily, Continue XARELTO 20 mg, his na is 147 . pending disposition He is pending transfer for IR or surgical jejunostomy or PEG placement due to history of Diego-en-Y. 04/01/25: patient might benefit from Bumex, his sodium is 137 and edema is still pretty significant. Resume Bumex 2 mg PO daily. Pending placement. #Atrial fibrillation, rate controlled. Patient notes positive history of afib. He had previously been on metoprolol succinate 100 mg BID. Currently appears rate-controlled in the 100s. CHADS-VASc score 4 Plan: -continue Xarelto. -Continue amiodarone 200 mg qday. -Keep potassium >4.0 and mag >2.0. Rest of conditions to continue current management per primary team: #Acute hypoxic respiratory failure s/p tracheostomy. #Morbid obesity. #Community acquired pneumonia. #Elevated LFTs, resolved. #Hyperbilirubinemia, resolved. #History of type 2 diabetes. #Lactic acidosis, resolved. #KENIA on CKD. #Hypernatremia. Discussed the patient with my attending Dr John. Poncho Espinosa MD, PGY 2. Disclaimer: This note was dictated by speech recognition. Minor errors in wind projects supervisor may be present due to voice recognition software.
--- NOTE | 2025-04-01 13:39 | ESPR_ITS ---
Documentation for date of: 04/01/25 Subjective Subjective Interval history: Today patient is seen and examined at bedside, vitally patient is stable however his oxygen requirement keeps increasing now he is on blow-by with increase of FiO2 of 50%. His labs was only significant for blood sugar level of 178, his serum sodium today is 137. Serum creatinine is 1.2, his body weight stable at 200.8 kilograms. We noted that the patient has right arm swelling, I ordered for the patient right upper extremity Doppler venous which showed right internal jugular vein thrombosis. Will start the patient Xarelto and will put the patient on heparin drip. Because her sodium has been improving and now it is at 137 and serum creatinine is 1.2 we will go down on the water flushes to 270 mL/2 hours. We spoke with Dr. Doty for possible attempt to reach out to any of his colleagues for possible transfer for possible jejunostomy. Pending his recommendations Regarding his speech and swallowing we will reach out to the speech therapist today to have another attempt to try PMV function and possible swallow eval. Another chest physical therapy was ordered. Exam Vital Signs Temp Pulse Resp BP Pulse Ox O2 Del Method O2 Flow Rate 97.5 F 106 H 19 123/86 H 96 Mechanical Ventilation 10 04/01/25 08:00 04/01/25 12:01 04/01/25 08:00 04/01/25 08:52 04/01/25 12:01 04/01/25 08:00 03/31/25 16:00 FiO2 50 04/01/25 12:01 Narrative Exam GEN: AOx3, able to speak full sentences HEENT: NC/AC, PERRLA, oral mucosa moist, neck supple CVS: RRR, S1-S2 present, no murmurs appreciated RESP: CTAB GI: soft,non distended, non tender, NBS MSK: able to move all 4 limbs, no lower extremity edema SKIN: warm and dry LOCOMOTIVE OILER: CN II-XII and Sensation grossly intact. Objective Labs 04/01/25 05:12 04/01/25 05:12 Labs: Laboratory Results - last 24 hr 04/01/25 05:12 WBC 8.5 RBC 3.64 L Hgb 10.3 L Hct 33.5 L MCV 92 MCH 28.3 MCHC 30.7 L RDW Std Deviation 49.8 H Plt Count 290 D Neut % (Auto) 68 Lymph % (Auto) 13 Powell % (Auto) 15 H Eos % (Auto) 4 Baso % (Auto) 0 Neut # (Auto) 5.8 Lymph # (Auto) 1.1 Powell # (Auto) 1.2 H Eos # (Auto) 0.3 Baso # (Auto) 0.0 Immature Gran # (Auto) 0.05 H Absolute Nucleated RBC 0.00 Immature Gran % 1 H Nucleated RBC % 0 Sodium 137 Potassium 3.9 Chloride 98 Carbon Dioxide 33.1 H Anion Gap 6 L BUN 34 H Creatinine 1.2 Estim Creat Clear Calc 103.0 eGFR > 60 BUN/Creatinine Ratio 28 H Glucose 178 H Calculated Osmolality 285 Calcium 8.2 L Corrected Calcium 9.0 Phosphorus 3.2 Magnesium 1.7 Total Bilirubin 0.5 AST 22 ALT 11 Alkaline Phosphatase 143 H Total Protein 5.5 L Albumin 3.0 L Globulin 2.5 Albumin/Globulin Ratio 1.2 ABG Interpretation ABG results: 02/27/25 02/28/25 03/01/25 06:55 04:57 04:39 ABG pH 7.27 L 7.37 D 7.41 ABG pCO2 57 H 48 44 ABG pO2 101 78 L D 69 L ABG HCO3 26 28 H 28 H ABG O2 Saturation 98 95 93 ABG Base Excess -2 2 3 VBG pH VBG pCO2 VBG pO2 VBG Base Excess 03/01/25 03/01/25 03/02/25 13:15 14:52 04:25 ABG pH Cancelled 7.41 7.45 ABG pCO2 Cancelled 45 42 ABG pO2 Cancelled 53 L* 66 L ABG HCO3 Cancelled 28 H 29 H ABG O2 Saturation Cancelled 85 L 92 ABG Base Excess Cancelled 3 5 H VBG pH VBG pCO2 VBG pO2 VBG Base Excess 03/03/25 03/05/25 03/05/25 04:40 16:30 16:55 ABG pH 7.45 Cancelled 7.34 L D ABG pCO2 43 Cancelled 72 H* D ABG pO2 72 L Cancelled 83 ABG HCO3 30 H Cancelled 38 H ABG O2 Saturation 94 Cancelled 95 ABG Base Excess 5 H Cancelled 9 H VBG pH VBG pCO2 VBG pO2 VBG Base Excess 03/05/25 03/06/25 03/06/25 23:36 01:48 05:22 ABG pH 7.37 7.34 L 7.52 H D ABG pCO2 67 H 74 H* 47 D ABG pO2 150 H D 88 D 160 H D ABG HCO3 38 H 40 H 38 H ABG O2 Saturation 99 H 96 100 H ABG Base Excess 10 H 11 H 13 H VBG pH VBG pCO2 VBG pO2 VBG Base Excess 03/06/25 03/07/25 03/07/25 17:10 05:00 14:03 ABG pH 7.46 H ABG pCO2 53 H ABG pO2 65 L D ABG HCO3 38 H ABG O2 Saturation 93 ABG Base Excess 12 H VBG pH 7.50 7.52 VBG pCO2 50 47 VBG pO2 70 H 61 H VBG Base Excess 13 H 14 H 03/09/25 03/09/25 03/09/25 08:17 10:25 17:29 ABG pH 7.25 L D 7.29 L 7.29 L ABG pCO2 93 H* D 85 H* 88 H* ABG pO2 81 L 57 L* D 85 D ABG HCO3 41 H 40 H 43 H ABG O2 Saturation 95 89 L 97 ABG Base Excess 10 H 10 H 12 H VBG pH VBG pCO2 VBG pO2 VBG Base Excess 03/09/25 03/10/25 03/10/25 23:24 07:17 11:25 ABG pH 7.32 L 7.28 L 7.31 L ABG pCO2 78 H* D 90 H* D 81 H* ABG pO2 69 L 47 L* D 63 L ABG HCO3 40 H 43 H 41 H ABG O2 Saturation 94 80 L 93 ABG Base Excess 11 H 12 H 11 H VBG pH VBG pCO2 VBG pO2 VBG Base Excess 03/10/25 03/11/25 03/12/25 16:56 04:19 04:42 ABG pH 7.40 7.48 H 7.43 ABG pCO2 66 H D 54 H D 59 H ABG pO2 68 L 67 L 77 L ABG HCO3 41 H 40 H 39 H ABG O2 Saturation 94 94 96 ABG Base Excess 13 H 15 H 12 H VBG pH VBG pCO2 VBG pO2 VBG Base Excess 03/13/25 03/14/25 03/15/25 04:32 04:25 04:37 ABG pH 7.47 H 7.46 H 7.41 ABG pCO2 53 H 50 H 56 H ABG pO2 60 L 70 L 69 L ABG HCO3 38 H 36 H 35 H ABG O2 Saturation 93 95 95 ABG Base Excess 13 H 10 H 9 H VBG pH VBG pCO2 VBG pO2 VBG Base Excess 03/16/25 03/16/25 03/17/25 04:54 09:53 04:35 ABG pH 7.45 7.48 H 7.47 H ABG pCO2 51 H 49 H 53 H ABG pO2 68 L 34 L* D 87 D ABG HCO3 35 H 37 H 38 H ABG O2 Saturation 95 67 L 97 ABG Base Excess 10 H 12 H 13 H VBG pH VBG pCO2 VBG pO2 VBG Base Excess 03/18/25 03/19/25 03/26/25 04:26 05:00 08:20 ABG pH 7.44 7.45 7.46 H ABG pCO2 57 H 55 H 54 H ABG pO2 107 D 73 L D 79 L ABG HCO3 38 H 38 H 38 H ABG O2 Saturation 99 H 96 97 ABG Base Excess 12 H 12 H 12 H VBG pH VBG pCO2 VBG pO2 VBG Base Excess Quality Measures Quality Measures sepsis Current suspected stage: sepsis Possible source: pulmonary Blood cultures ordered: completed in ED Antibiotic ordered: Yes Advance care planning discussed with:: patient Assessment & Plan Assessment Current Active Medications: Generic Name Dose Route Start Last Admin Trade Name Freq PRN Reason Stop Dose Admin Amlodipine Besylate 10 mg 03/31/25 07:30 04/01/25 08:52 Amlodipine Besylate 5 Mg Tablet NG 04/19/25 07:29 10 mg DAILY KOURTNEY Administration Ascorbic Acid 500 mg 03/27/25 12:00 04/01/25 08:53 Ascorbic Acid 250 Mg Tablet NG 04/26/25 11:59 500 mg BID KOURTNEY Administration Collagenase 0 gm 04/01/25 11:30 Collagenase Oint 30 Gm Tube TOP 05/01/25 11:29 DAILY KOURTNEY Cyclobenzaprine HCl 5 mg 03/26/25 08:25 Cyclobenzaprine 5 Mg Tablet PO 04/25/25 08:24 TID PRN MUSCLE SPASMS Protocol Dextrose 25 ml 03/03/25 08:20 Dextrose 50%-Water Inj 50 Ml Syringe IV 04/02/25 08:19 Q15MIN PRN BG 50-70 responsive npo pt Dextrose 50 ml 03/03/25 08:20 Dextrose 50%-Water Inj 50 Ml Syringe IV 04/02/25 08:19 Q15MIN PRN BG <50 OR BG <70 & pt unresponsive Glucagon 1 mg 03/03/25 08:20 Glucagon Inj 1 Mg Vial IM Q15MIN PRN BG <70, and no IV access Insulin Glargine 38 unit 03/30/25 09:00 04/01/25 09:19 Insulin Glargine (Lantus) 5 Unit/0.05 Ml (Per 5 Units) SC 04/29/25 08:59 38 unit QDAY KOURTNEY Administration Insulin Human Lispro 0 unit 03/25/25 12:00 04/01/25 07:51 Insulin Lispro (Admelog) 1 Unit/0.01 Ml Unit SC 04/24/25 11:59 Not Given Q6HR KOURTNEY Protocol Lansoprazole 30 mg 03/23/25 09:30 04/01/25 09:03 Lansoprazole 30 Mg Tab.Rap.Dr CHAPIN 04/21/25 08:59 30 mg QDAY KOURTNEY Administration Multivitamins/Minerals 15 ml 03/27/25 12:00 04/01/25 08:52 Multivitamin 15 Ml Udc NG 04/26/25 11:59 15 ml QDAY KOURTNEY Administration Ondansetron HCl 4 mg 03/05/25 20:46 03/09/25 03:49 Ondansetron Inj 2 Mg/Ml Inj 2 Ml IV 04/04/25 20:45 4 mg Q6HR PRN Administration NAUSEA OR VOMITING Protocol Rivaroxaban 20 mg 03/23/25 17:30 03/31/25 17:36 Rivaroxaban 10 Mg Tablet GT 04/03/25 17:29 20 mg WSUPPER KOURTNEY Administration Zinc Sulfate 220 mg 03/27/25 12:00 04/01/25 08:52 Zinc Sulfate 220 Mg Capsule NG 04/10/25 11:59 220 mg QDAY KOURTNEY Administration Plan Assessment 64-year-old male with past medical history of DM2, hypertension, A-fib, and Jehova's witness was admitted to the ICU on 02/27/2025 for shock and acute hypoxic respiratory failure. We had goals of care conversation with family, they will need time to decide if they will decide on hospice or IR Jejunostomy. Hospice to discuss with patient's parents later today. Initiating transfer for higher level of care at this time for Jejunostomy. #Right internal jugular venous thrombosis Venous duplex wasPositive for occlusive thrombus in the right internal jugular vein Plan ? Hold Xarelto as it might be that absorbed efficiently ? Put the patient on heparin drip DVT treatment protocol ? 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 Patient would benefit from TPN/PPN. Continues to be on blow-by. Did not tolerate PMS valve, as per speech therapist patient will need time to adjust further tracheostomy before the trial of PNS. Will reevaluate if the patient tolerated the PMS we will do another session of speech evaluation, the patient unable to perform the speech evaluation we will transfer the patient to higher level of care for placement of PEG tube versus duodenojejunostomy. Patient will need IR or surgical jejunostomy or PEG placement due to history of Diego-en-Y Patient appears to display decision-making capacity, and expresses wanting to be transferred for jejunostomy At this time we will hold off on hospice and initiate transfer orders Pt continues to take NG tube out, will place soft restraints at this time. Pt is complying with directions at this time and is agreeable to NG tube placement Plan: ?Follow-up with Dr. Doty for possible transfer for jejunostomy. ? 2Cal RN via NG tube, 320 cc every 2 hours for water flushes ? Multivitamin ? Pending transfer for higher level of care for PEG placement or jejunostomy #Right diastolic CHF, improved Echo could not visualize all chambers with limited ability to determine patient's ejection fraction. Given body habitus, history of obstructive sleep apnea and obesity hypoventilation syndrome, right heart failure suspected. Lower pedal edema likely combination of heart failure and third spacing. [place] Mary 03/15 showed elevated RAP 25 PAP 38 PCWP 23. [place] Mary 03/16/2025 PCWP 9 (=17-8) [place] Mary 03/19/2025: RAP 8, PAP 27, PCWP 7 Dry weight: 197.9 Dry BNP 135 High cardiac output Continuing water flushes at this time at 100 cc an hour, will have to do body weights to assess for urine output as patient does not have Fuller or condom catheter at this time His weight today is 201 kg Consult with nephro and cardio if we need diuresis Today 04/02/2025 200.8 kg which is stable, her serum sodium 137 today Plan: ?Decrease water flushes to 270 mL per 2 hours ?Continue strict daily body weight ? Cardiology consulted, appreciate recs ? Continuing to hold Bumex - Daily weights - Strict I&O #Hx of A-fib [id number] score of 3 points indicating 3.2% risk of stroke per year HAS-BLED: 0 Plan: ?Patient already started on heparin drip for DVT on the right internal jugular vein. - Continue PO amiodarone 200 mg qday with small sips of water ? Potassium and magnesium above 4 and 2 respectively - Stop Xarelto ? Telemetry #Acute on chronic hypoxic and hypercapnic respiratory failure #Obesity hypoventilation syndrome and obstructive sleep apnea #Community-acquired pneumonia, Enterobacter [place] #Tracheostomy Patient was intubated on 02/27/2025, extubated 03/03/2025. Reintubated on 03/06/2025 and extubated 03/07/2025. Reintubated 03/10/2025 for hypercapnic encephalopathy Tracheostomy tube placed 03/15 [place] 03/19/2025 PEEP 8, RR 10, FiO2 40, TV 420 Blow-by during the day, ventilation at night Plan: ? Ventilatory support at bedtime, blow-by during the day. ? Patient will go for another session of speech eval and trial of PMV tomorrow 02 Apr 2025 - Continue vent, wean as tolerated #KENIA resolved #Hypokalemia resolved #Hypernatremia resolved #Metabolic alkalosis resolved Plan: - Nephrology following, Dr. Gannon, appreciate recommendations ? Decrease with water flushes to 70 cc every 2 hours for water flushes #Decubitus ulcer Patient will likely have worsening of this ulcer, it is not great for yet at this point however due to patient's immobility we can anticipate this will worsen Plan: ? Monitor as patient is refusing care at this time ? Monitor for signs of infection ? Wound care ? Wound care vitamins including zinc, multivitamin and vitamin C #Morbid obesity #DM2 A1C 7.6 on 03/05/2025 Patient has a BMI of 79.5 Plan: - ISS scale 2 - Hypoglycemia protocol ordered ? 35 units of Lantus #Normocytic Anemia likely secondary to anemia of chronic disease given normal MCV. No acute intervention, continue to monitor #Leukocytosis, resolved #Enterobacter cloacoe pneumonia, resolved. Finished Rocephin (03/06/2025) - Cefepime 03/18/2025, completed #Acute encephalopathy, resolved #Health Maintenance Disposition: Telemetry DVT prophylaxis: Xarelto GI prophylaxis: Protonix Diet: NG tube feeds with 2Cal with 320 cc every 2 hours for water flushes CODE STATUS: Full - Patient's plan and care discussed with my attending, Dr. Samina Bay MD Internal Medicine PGY-2 Attending Provider Attestation/Addendum I have examined the patient, reviewed labs and imaging findings, discussed the case with the resident(s), and reviewed entered orders. I agree with the plan of care as outlined in this note, with these additional summaries/recommendations: Patient seen at bedside. No acute overnight events. Patient is an unfortunate morbidly obese 64-year-old male who is currently pending deposition and long- term nutrition goals. Patient has now been in the hospital for 33 days. Biggest barrier to discharge at this time is long-term artificial nutrition. He continues to receive tube feeds through NG tube. Patient was not able to receive PEG tube in house given previous Diego and Y gastrojejunostomy. Transfer was attempted for jejunostomy by IR although he was not accepted for transfer in the [facility]. We will revisit with gastroenterology if there is any other options at this time. There has been discussions about hospice although given patient has tracheostomy and requires mechanical ventilation mostly at night he is unable to be sent to SNF on hospice. Furthermore patient's only family members are his parents who are elderly and unable to care for him if he were to go on home hospice and also would not be a viable option given he still requires mechanical ventilation. I feel it is a little aggressive at this time to initiate comfort care as patient does have ability to interact throughout most days although does appear to have episodes of confusion secondary to CO2 retention. Case management is working with patient's insurance and currently they recommend weaning mechanical ventilation although I do not feel this will be successful. Case management also looking into LTAC placement but has been unsuccessful to date as patient does not have PEG tube. We will continue to look at viable options for safe discharge. Continue Xarelto and amiodarone for chronic atrial fibrillation. Some right upper extremity swelling noted and order ultrasound. KENIA continues to improve. Continue insulin sliding scale for diabetes mellitus type 2. Status post antibiotics for bacterial pneumonia. Patient now has worsening decubitus ulcer and wound care following. Repeat hematology and chemistry panel in AM. Please see residents note for additional details of management. Dr. Samina MD
[2025-04-01 16:22] LABS: INR 1.1 (0.9-1.3); Partial Thromboplastin Time 32.2 Seconds (22.0-36.0); Prothrombin Time 12.2 Seconds (9.0-12.2)
[2025-04-01] MEDS: Heparin/D5w 25K 250 ML Ivpb 25,000 UNIT/250 ML BAG 18 UNIT IV (17:40)
[2025-04-01] MEDS: HEPARIN SOD INJ 5000 UNIT/ML VIAL 8000 UNIT IV (17:49)
--- NOTE | 2025-04-01 19:35 | PD.IMPROG ---
Documentation for date of: 04/01/25 Subjective Subjective Interval history: Spoke with the internal medicine team I will try my resources to get him to a place where he can get jejunostom tube for feeding purposes Exam Vital Signs Temp Pulse Resp BP Pulse Ox O2 Del Method O2 Flow Rate 96.6 F L 105 H 20 127/87 H 97 Mechanical Ventilation 10 04/01/25 15:52 04/01/25 16:00 04/01/25 15:52 04/01/25 15:52 04/01/25 15:52 04/01/25 15:52 03/31/25 16:00 FiO2 50 04/01/25 12:01 Objective Labs 04/01/25 05:12 04/01/25 05:12 Labs: Laboratory Results - last 24 hr 04/01/25 04/01/25 05:12 15:40 WBC 8.5 RBC 3.64 L Hgb 10.3 L Hct 33.5 L MCV 92 MCH 28.3 MCHC 30.7 L RDW Std Deviation 49.8 H Plt Count 290 D Neut % (Auto) 68 Lymph % (Auto) 13 Braxton % (Auto) 15 H Eos % (Auto) 4 Baso % (Auto) 0 Neut # (Auto) 5.8 Lymph # (Auto) 1.1 Braxton # (Auto) 1.2 H Eos # (Auto) 0.3 Baso # (Auto) 0.0 Immature Gran # (Auto) 0.05 H Absolute Nucleated RBC 0.00 Immature Gran % 1 H Nucleated RBC % 0 PT 12.2 INR 1.1 APTT 32.2 Sodium 137 Potassium 3.9 Chloride 98 Carbon Dioxide 33.1 H Anion Gap 6 L BUN 34 H Creatinine 1.2 Estim Creat Clear Calc 103.0 eGFR > 60 BUN/Creatinine Ratio 28 H Glucose 178 H Calculated Osmolality 285 Calcium 8.2 L Corrected Calcium 9.0 Phosphorus 3.2 Magnesium 1.7 Total Bilirubin 0.5 AST 22 ALT 11 Alkaline Phosphatase 143 H Total Protein 5.5 L Albumin 3.0 L Globulin 2.5 Albumin/Globulin Ratio 1.2 Impressions Impression: Being fed enterally via the NGT I will work on getting him transferred if I can find an accepting physician ABG Interpretation ABG results: 02/27/25 02/28/25 03/01/25 06:55 04:57 04:39 ABG pH 7.27 L 7.37 D 7.41 ABG pCO2 57 H 48 44 ABG pO2 101 78 L D 69 L ABG HCO3 26 28 H 28 H ABG O2 Saturation 98 95 93 ABG Base Excess -2 2 3 VBG pH VBG pCO2 VBG pO2 VBG Base Excess 03/01/25 03/01/25 03/02/25 13:15 14:52 04:25 ABG pH Cancelled 7.41 7.45 ABG pCO2 Cancelled 45 42 ABG pO2 Cancelled 53 L* 66 L ABG HCO3 Cancelled 28 H 29 H ABG O2 Saturation Cancelled 85 L 92 ABG Base Excess Cancelled 3 5 H VBG pH VBG pCO2 VBG pO2 VBG Base Excess 03/03/25 03/05/25 03/05/25 04:40 16:30 16:55 ABG pH 7.45 Cancelled 7.34 L D ABG pCO2 43 Cancelled 72 H* D ABG pO2 72 L Cancelled 83 ABG HCO3 30 H Cancelled 38 H ABG O2 Saturation 94 Cancelled 95 ABG Base Excess 5 H Cancelled 9 H VBG pH VBG pCO2 VBG pO2 VBG Base Excess 03/05/25 03/06/25 03/06/25 23:36 01:48 05:22 ABG pH 7.37 7.34 L 7.52 H D ABG pCO2 67 H 74 H* 47 D ABG pO2 150 H D 88 D 160 H D ABG HCO3 38 H 40 H 38 H ABG O2 Saturation 99 H 96 100 H ABG Base Excess 10 H 11 H 13 H VBG pH VBG pCO2 VBG pO2 VBG Base Excess 03/06/25 03/07/25 03/07/25 17:10 05:00 14:03 ABG pH 7.46 H ABG pCO2 53 H ABG pO2 65 L D ABG HCO3 38 H ABG O2 Saturation 93 ABG Base Excess 12 H VBG pH 7.50 7.52 VBG pCO2 50 47 VBG pO2 70 H 61 H VBG Base Excess 13 H 14 H 03/09/25 03/09/25 03/09/25 08:17 10:25 17:29 ABG pH 7.25 L D 7.29 L 7.29 L ABG pCO2 93 H* D 85 H* 88 H* ABG pO2 81 L 57 L* D 85 D ABG HCO3 41 H 40 H 43 H ABG O2 Saturation 95 89 L 97 ABG Base Excess 10 H 10 H 12 H VBG pH VBG pCO2 VBG pO2 VBG Base Excess 03/09/25 03/10/25 03/10/25 23:24 07:17 11:25 ABG pH 7.32 L 7.28 L 7.31 L ABG pCO2 78 H* D 90 H* D 81 H* ABG pO2 69 L 47 L* D 63 L ABG HCO3 40 H 43 H 41 H ABG O2 Saturation 94 80 L 93 ABG Base Excess 11 H 12 H 11 H VBG pH VBG pCO2 VBG pO2 VBG Base Excess 03/10/25 03/11/25 03/12/25 16:56 04:19 04:42 ABG pH 7.40 7.48 H 7.43 ABG pCO2 66 H D 54 H D 59 H ABG pO2 68 L 67 L 77 L ABG HCO3 41 H 40 H 39 H ABG O2 Saturation 94 94 96 ABG Base Excess 13 H 15 H 12 H VBG pH VBG pCO2 VBG pO2 VBG Base Excess 03/13/25 03/14/25 03/15/25 04:32 04:25 04:37 ABG pH 7.47 H 7.46 H 7.41 ABG pCO2 53 H 50 H 56 H ABG pO2 60 L 70 L 69 L ABG HCO3 38 H 36 H 35 H ABG O2 Saturation 93 95 95 ABG Base Excess 13 H 10 H 9 H VBG pH VBG pCO2 VBG pO2 VBG Base Excess 03/16/25 03/16/25 03/17/25 04:54 09:53 04:35 ABG pH 7.45 7.48 H 7.47 H ABG pCO2 51 H 49 H 53 H ABG pO2 68 L 34 L* D 87 D ABG HCO3 35 H 37 H 38 H ABG O2 Saturation 95 67 L 97 ABG Base Excess 10 H 12 H 13 H VBG pH VBG pCO2 VBG pO2 VBG Base Excess 03/18/25 03/19/25 03/26/25 04:26 05:00 08:20 ABG pH 7.44 7.45 7.46 H ABG pCO2 57 H 55 H 54 H ABG pO2 107 D 73 L D 79 L ABG HCO3 38 H 38 H 38 H ABG O2 Saturation 99 H 96 97 ABG Base Excess 12 H 12 H 12 H VBG pH VBG pCO2 VBG pO2 VBG Base Excess Assessment & Plan A&P Narrative 64-year-old male with significant past medical history of hypertension, diabetes mellitus, A-fib was admitted to the ICU on 02/27/2025 after coming in with altered mental status and shortness of breath, intubated for acute hypoxic respiratory failure and had suspected obesity hypoventilation syndrome/obstructive sleep apnea/pneumonia and acute kidney injury. He was extubated on 03/03 and downgraded then re-intubated on 03/06 due to confusion and tachypneia. He was then extubated and downgraded to the floor on 03/07. On 03/10, patient again had decreased mentation on the BiPAP so was reintubated and upgraded. Cardiology has been consulted for suspected heart failure. #Right congestive heart failure with preserved EF. #Severe BASIA/OHS. #Hypernatremia. Echo on this admission showed poor quality images secondary to the patient's body habitus so was a technically limited study. Suspect chronic right heart failure in the setting of chronic obesity hypoventilation syndrome and obstructive sleep apnea. Currently appears to be more pulmonary component to respiratory failure than cardiac. Requiring ventilation support. -Echo 02/27/25: IVC appears to be dilated and also estimated RVSP also appears to be at least moderately elevated at 55 mmHg. 03/14/25: Will hold dirutics for now , he was given IV fluids yesterday. 03/15/25 : Atwood catheter was placed by ICU team which showed PA pressure of more than 30s and wedge pressure was also high . started him on bumex drip . will continue the albumin . he is getting his peg tube today 03/16/25: ICU team tried another Atwood catheter today which showed RA pressure of 25, PA pressure of 38, PCWP of 23. Plan is to continue Bumex for him. Cr stable at 2.5 03/17/2025: Net fluid balance -3350 cc. ICU team held Bumex due to significant electrolyte abnormalities, potassium 2.7. Once repleted Bumex drip will be resumed. Continue current management and monitor patient. 03/18/2025: net fluid balance -1650 , he received 1 dose of diamox yesterday. will continue to diures, he is off ventillor in blowby with PRN ventillator when he gets tired. 03/19/2025: no acute overnight event.Balance of -950 . ICU team put a swan catheter which showed he is adequately diressed for now, so bumex on hold for now. pending pegtube placement, its been difficult to do the procedure consedering his Rouxy history. Plan: 03/20/2025: Will hold dirutics for now, he was given IV LR and FWF via NG for hypernatremia. 03/21/2025: no acute overnight event. free water flushes increase today for hypernatremia . Xarelto resumed . bumex on hold ,Dr Doty recommending jejunostomy placement. #Atrial fibrillation, rate controlled. Patient notes positive history of afib. He had previously been on metoprolol succinate 100 mg BID. Currently appears rate-controlled in the 100s. CHADS-VASc score 4 Plan: - Metoprolol on hold in setting of right heart failure . -Resume Xarelto. -Continue amiodarone 200 mg qday. -Keep potassium >4.0 and mag >2.0. Rest of conditions to continue current management per primary team: #Acute hypoxic respiratory failure s/p tracheostomy. #Morbid obesity. #Community acquired pneumonia. #Elevated LFTs, resolved. #Hyperbilirubinemia, resolved. #History of type 2 diabetes. #Lactic acidosis, resolved. #KENIA on CKD. 03/22/2025: Patient has tracheostomy inplace and is unable to communicate much Telemetry reviewed and rest of the vital signs including the heart rate appears to be stable. Labs showed that the patient still continues to have hyponatremia at 150 and also has elevated creatinine at 2.6 and a BUN of 66. Patient is on renal water flushes for the hyponatremia and creatinine continues to improve and baseline creatinine appears to be around 2.0 Recommend to continue with free water flushes for now. Patient is morbidly obese with multiple comorbidities as mentioned below and overall prognosis appears to be poor Primary team to discuss with the family regarding goals of care. Management of rest of the medical conditions as per primary team and other consultants. Thank you for the consult and allowing me to participate in the care of the patient. Cardiology will continue to follow. Kobe Barahona M.D. Interventional Cardiology Time Spent With Patient Time: Total time spent is greater than 50% in coordination of care (as documented) at patient's floor/unit and/or counseling patient:
--- NOTE | 2025-04-01 21:36 | XR_ITS ---
Examination: AP chest single view Technique one AP portable semiupright chest single view Date and time: April 01, 2025 10 0 4:00 PM Comparison March 28, 2025 INDICATIONS: Orogastric tube with position FINDINGS: The film is significantly underpenetrated The orogastric tube projects in the stomach Mild enlargement cardiac contour with vascular congestion Right base pneumonia Impression: The orogastric tube projects in the stomach
[2025-04-02] VITALS (13 sets, daily range): BP systolic 117–138; BP diastolic 87–93; PULSE 90–114; RESP 18–29; TEMP 36.1–36.6; O2SAT 93–99
[2025-04-02 02:37] LABS: Partial Thromboplastin Time 28.5 Seconds (22.0-36.0)
[2025-04-02] MEDS: HEPARIN SOD INJ 5000 UNIT/ML VIAL 8000 UNIT IV (04:27)
--- NOTE | 2025-04-02 04:30 | PC.NURSE ---
Pt refusing heparin bolus as indicated by heparin drip protocol, pt also refusing morning labs, morning meds, as well as morning vitals. MD Fernández and MD Tobar made aware of the situation, no further orders provided at this time.
[2025-04-02] MEDS: Heparin/D5w 25K 250 ML Ivpb 25,000 UNIT/250 ML BAG 26.024 UNIT IV (05:36)
--- NOTE | 2025-04-02 05:45 | PC.NURSE ---
Pt agreed to heparin bolus and heparin gtt but continued to refuse morning vitals, morning meds, morning labs, and bedside blood glucose check
[2025-04-02] MEDS: amLODIPine BESYLATE 5 MG TABLET 10 MG NG (08:41)
[2025-04-02] MEDS: MULTIVITAMIN 15 ML UDC NG (08:41)
[2025-04-02] MEDS: ZINC SULFATE 220 MG CAPSULE NG (08:42)
[2025-04-02] MEDS: ASCORBIC ACID 250 MG TABLET 500 MG NG ×2 (08:42→21:08)
[2025-04-02] MEDS: BUMETANIDE 0.5 MG TABLET 2 MG PO (08:42)
[2025-04-02] MEDS: INSULIN GLARGINE (Lantus) 5 UNIT/0.05 ML (PER 5 UNITS) 38 UNIT SC (08:42)
[2025-04-02] MEDS: LANSOPRAZOLE 30 MG TAB.RAP.DR NG (08:42)
--- NOTE | 2025-04-02 10:04 | PC.CC ---
[facility] If transfer is initiated, their contracted providers are [facility] (they have bariatric svcs), [facility] and [facility] for J-tube placement.
[2025-04-02 10:07] LABS: Basophils % (Auto) 0 % (0-2.5); Eosinophils # (Auto) 0.3 Thou/mm3 (0.0-0.5); Eosinophils % (Auto) 3 % (0-10); Hematocrit 33.9 % (41.0-53.0); Hemoglobin 10.7 g/dL (13.5-16.0); Immature Granulocytes % (Auto) 1 % (0-0); Immature Granulocytes Auto 0.07 Thou/mm3 (0.00-0.00); Lymphocytes # (Auto) 1.3 Thou/mm3 (1.0-4.8); Lymphocytes % (Auto) 15 % (10-50); Mean Corpuscular HGB Conc 31.6 g/dl (31.0-37.0); Mean Corpuscular Hemoglobin 27.8 pg (25.0-35.0); Mean Corpuscular Volume 88 fL (80-100); Monocytes # (Auto) 1.1 Thou/mm3 (0.0-0.8); Monocytes % (Auto) 13 % (0-12); Neutrophils # (Auto) 6.1 Thou/mm3 (1.8-7.7); Neutrophils % (Auto) 69 % (37-80); Nucleated Red Blood Cell % 0 /100 WBC (0); Platelet Count 287 Thou/mm3 (140-440); Red Blood Count 3.85 Miln/mm3 (4.50-5.90); White Blood Count 8.8 Thou/mm3 (3.8-10.6)
--- NOTE | 2025-04-02 10:13 | XR_ITS ---
Examination: AP chest single view Technique one AP portable chest single view Date and time: April 02, 2025 1023 hours Comparison April 01, 2025 INDICATIONS: Coughing congestion this week. FINDINGS: Mild prominence of ventricle Prominent vascular congestion Fairly diffuse pneumonia in the right lung Tracheostomy tube tip 5 cm above nunu Orogastric tube in the stomach the tip is below the level film IMPRESSION: Fairly diffuse right lung pneumonia, consider aspiration pneumonia
[2025-04-02 10:22] LABS: Alanine Aminotransferase 13 U/L (10-49); Albumin, Serum 3.2 gm/dL (3.4-4.8); Albumin/Globulin Ratio 1.2 (1.2-2.2); Alkaline Phosphatase 161 U/L (46-116); Anion Gap 4 (7-16); Aspartate Amino Transferase 27 U/L (0-34); BUN/Creatinine Ratio 25 Ratio (12-20); Bilirubin,Total 0.5 mg/dL (0.3-1.2); Blood Urea Nitrogen 30 mg/dL (9-23); Calcium 8.2 mg/dL (8.3-10.6); Calcium (Corrected) 8.8 mg/dL (8.5-10.1); Carbon Dioxide 33.6 mMol/L (20.0-31.0); Chloride 97 mMol/L (98-107); Creatinine (Component) 1.2 mg/dL (0.6-1.3); Globulin 2.7 gm/dL (2.3-3.5); Glucose 187 mg/dL (74-106); Magnesium 1.8 mg/dL (1.6-2.6); Osmolality,Calculated 281 (275-295); Phosphorous 3.3 mg/dL (2.4-5.1); Potassium 3.9 mMol/L (3.4-5.1); Sodium 135 mMol/L (136-145); Total Protein 5.9 gm/dL (5.7-8.2); eGFR > 60 See Note
[2025-04-02 10:29] LABS: Partial Thromboplastin Time 113.6 Seconds (22.0-36.0)
[2025-04-02] MEDS: COLLAGENASE OINT 30 GM TUBE TOP (10:45)
--- NOTE | 2025-04-02 10:58 | PC.SS ---
SS spoke to Cely, [employer] who explained pt receives SSI and pt will have to apply for Medical through [employer]SI. SS has spoken to patient's dad to inform him. Pt has been on NG tube for about 15 days. Pt has been placed on vent more frequently.
[2025-04-02] MEDS: INSULIN LISPRO (AdmeLOG) 1 UNIT/0.01 ML UNIT SC (11:52)
--- NOTE | 2025-04-02 12:00 | PC.WOUND ---
and Tingle at bedside assessing pressure injury. Per Dr. Kinney no surgical intervention needed at this time, recommendations to continue topical enzymatic debridement.
--- NOTE | 2025-04-02 13:01 | PC.CC ---
Addendum entered by Clara Oneal RN 04/03/25 05:34: Alta from [facility] called to receive update on insurance auth, was asked to call back after receiving auth at [phone] or to call Sloan at [phone] Addendum entered by Clara Oneal RN 04/02/25 21:14: Attempted to call Jeremy Nicole for insurance auth, no one answered due to after hours. only option was to leave a voice message. Addendum entered by Brigitte Willett RN 04/02/25 21:01: [facility] transfer center called requesting insurance auth Addendum entered by Mandy Pinzon RN 04/02/25 18:03: 1740: [facility] sent email requesting images sent through Kady, CD made, uploaded and sent. Addendum entered by Mandy Pinzon RN 04/02/25 16:49: 1437: Spoke to Dr. Doty, requests to start transfer process again. Dr. Turcios agrees. 1535: packet made and sent to [facility], called to make aware, they denied due to being at capacity. States we can call back if patient worsens and can ccall every 12 to 24 hours to check on capacity. 1618: packet sent to [facility], spoke to transfer center, asked packet get resent since they have not received. Sent again at 1635. Once they receive packed someone will call back for additional information. 1641: packet sent to [place], prelim information given, they decline due to having services capped and not accepting new medical patients at this time. Original Note: Spoke to regarding [facility]'s phone call. He stated he is aware tranfer was cancelled. Dr. Doty will attempt to find an accepting Hospital, if he does, they will notify the transfer center to start the transfer process again.
--- NOTE | 2025-04-02 13:47 | ESPR_ITS ---
<Statement entered by Lenora John MD - 04/03/25 12:43> Evaluated patient with resident physician team Dr. Isaac patient's condition remains unchanged cardiac rebollar quite stable in fact is tolerating oral bowel Bumex very well can be discharged to detention facility when available continue rest of medication unchanged A-fib rate controlled well. Documentation for date of: 04/02/25 Subjective Subjective Interval history: Patient was seen and examined at bedside. No acute overnight events. His vitals are stable today. He is back on blow-by however FiO2 remains high. Bumex was resumed yesterday, his sodium today 135. Pending transfer for possible jejunostomy. Exam Vital Signs Temp Pulse Resp BP Pulse Ox O2 Del Method O2 Flow Rate 97.1 F 108 H 18 138/91 H 98 Mechanical Ventilation 10 04/02/25 08:00 04/02/25 11:15 04/02/25 11:15 04/02/25 08:42 04/02/25 11:15 04/02/25 08:00 04/02/25 11:15 FiO2 50 04/02/25 11:15 Narrative Exam Gen: Well-developed and well-nourished morbidly obese male. NG tube in place. HEENT: NCAT, PERRLA, EOMI, MMM, anicteric conjunctivae, tracheostomy in place. CVS: Decreased heart sounds, normal S1 and S2. RRR. No M/R/G. Resp: Decreased breath sounds B/L. No rhonchi, rales, crackles or wheezing. Abd: soft, morbidly obese, non-tender, non-distended. BS+ in all 4 quadrants. Pitting edema over bilateral flanks and sides. MSK: Good ROM in BUE & BLE. 2+ pitting edema BLE. Neuro: Limited exam due to medical condition. Objective Labs 04/02/25 09:34 04/02/25 09:34 Labs: Laboratory Results - last 24 hr 04/01/25 04/01/25 04/02/25 15:40 23:34 09:34 WBC 8.8 RBC 3.85 L Hgb 10.7 L Hct 33.9 L MCV 88 MCH 27.8 MCHC 31.6 RDW Std Deviation 48.0 H Plt Count 287 Neut % (Auto) 69 Lymph % (Auto) 15 [place] % (Auto) 13 H Eos % (Auto) 3 Baso % (Auto) 0 Neut # (Auto) 6.1 Lymph # (Auto) 1.3 [place] # (Auto) 1.1 H Eos # (Auto) 0.3 Baso # (Auto) 0.0 Immature Gran # (Auto) 0.07 H Absolute Nucleated RBC 0.00 Immature Gran % 1 H Nucleated RBC % 0 PT 12.2 INR 1.1 APTT 32.2 28.5 113.6 H* D Sodium 135 L Potassium 3.9 Chloride 97 L Carbon Dioxide 33.6 H Anion Gap 4 L BUN 30 H Creatinine 1.2 Estim Creat Clear Calc 103.0 eGFR > 60 BUN/Creatinine Ratio 25 H Glucose 187 H Calculated Osmolality 281 Calcium 8.2 L Corrected Calcium 8.8 Phosphorus 3.3 Magnesium 1.8 Total Bilirubin 0.5 AST 27 ALT 13 Alkaline Phosphatase 161 H Total Protein 5.9 Albumin 3.2 L Globulin 2.7 Albumin/Globulin Ratio 1.2 ABG Interpretation ABG results: 02/27/25 02/28/25 03/01/25 06:55 04:57 04:39 ABG pH 7.27 L 7.37 D 7.41 ABG pCO2 57 H 48 44 ABG pO2 101 78 L D 69 L ABG HCO3 26 28 H 28 H ABG O2 Saturation 98 95 93 ABG Base Excess -2 2 3 VBG pH VBG pCO2 VBG pO2 VBG Base Excess 03/01/25 03/01/25 03/02/25 13:15 14:52 04:25 ABG pH Cancelled 7.41 7.45 ABG pCO2 Cancelled 45 42 ABG pO2 Cancelled 53 L* 66 L ABG HCO3 Cancelled 28 H 29 H ABG O2 Saturation Cancelled 85 L 92 ABG Base Excess Cancelled 3 5 H VBG pH VBG pCO2 VBG pO2 VBG Base Excess 03/03/25 03/05/25 03/05/25 04:40 16:30 16:55 ABG pH 7.45 Cancelled 7.34 L D ABG pCO2 43 Cancelled 72 H* D ABG pO2 72 L Cancelled 83 ABG HCO3 30 H Cancelled 38 H ABG O2 Saturation 94 Cancelled 95 ABG Base Excess 5 H Cancelled 9 H VBG pH VBG pCO2 VBG pO2 VBG Base Excess 03/05/25 03/06/2503/06/25 23:36 01:48 05:22 ABG pH 7.37 7.34 L 7.52 H D ABG pCO2 67 H 74 H* 47 D ABG pO2 150 H D 88 D 160 H D ABG HCO3 38 H 40 H 38 H ABG O2 Saturation 99 H 96 100 H ABG Base Excess 10 H 11 H 13 H VBG pH VBG pCO2 VBG pO2 VBG Base Excess 03/06/25 03/07/25 03/07/25 17:10 05:00 14:03 ABG pH 7.46 H ABG pCO2 53 H ABG pO2 65 L D ABG HCO3 38 H ABG O2 Saturation 93 ABG Base Excess 12 H VBG pH 7.50 7.52 VBG pCO2 50 47 VBG pO2 70 H 61 H VBG Base Excess 13 H 14 H 03/09/25 03/09/25 03/09/25 08:17 10:25 17:29 ABG pH 7.25 L D 7.29 L 7.29 L ABG pCO2 93 H* D 85 H* 88 H* ABG pO2 81 L 57 L* D 85 D ABG HCO3 41 H 40 H 43 H ABG O2 Saturation 95 89 L 97 ABG Base Excess 10 H 10 H 12 H VBG pH VBG pCO2 VBG pO2 VBG Base Excess 03/09/25 03/10/25 03/10/25 23:24 07:17 11:25 ABG pH 7.32 L 7.28 L 7.31 L ABG pCO2 78 H* D 90 H* D 81 H* ABG pO2 69 L 47 L* D 63 L ABG HCO3 40 H 43 H 41 H ABG O2 Saturation 94 80 L 93 ABG Base Excess 11 H 12 H 11 H VBG pH VBG pCO2 VBG pO2 VBG Base Excess 03/10/25 03/11/25 03/12/25 16:56 04:19 04:42 ABG pH 7.40 7.48 H 7.43 ABG pCO2 66 H D 54 H D 59 H ABG pO2 68 L 67 L 77 L ABG HCO3 41 H 40 H 39 H ABG O2 Saturation 94 94 96 ABG Base Excess 13 H 15 H 12 H VBG pH VBG pCO2 VBG pO2 VBG Base Excess 03/13/25 03/14/25 03/15/25 04:32 04:25 04:37 ABG pH 7.47 H 7.46 H 7.41 ABG pCO2 53 H 50 H 56 H ABG pO2 60 L 70 L 69 L ABG HCO3 38 H 36 H 35 H ABG O2 Saturation 93 95 95 ABG Base Excess 13 H 10 H 9 H VBG pH VBG pCO2 VBG pO2 VBG Base Excess 03/16/25 03/16/25 03/17/25 04:54 09:53 04:35 ABG pH 7.45 7.48 H 7.47 H ABG pCO2 51 H 49 H 53 H ABG pO2 68 L 34 L* D 87 D ABG HCO3 35 H 37 H 38 H ABG O2 Saturation 95 67 L 97 ABG Base Excess 10 H 12 H 13 H VBG pH VBG pCO2 VBG pO2 VBG Base Excess 03/18/25 03/19/25 03/26/25 04:26 05:00 08:20 ABG pH 7.44 7.45 7.46 H ABG pCO2 57 H 55 H 54 H ABG pO2 107 D 73 L D 79 L ABG HCO3 38 H 38 H 38 H ABG O2 Saturation 99 H 96 97 ABG Base Excess 12 H 12 H 12 H VBG pH VBG pCO2 VBG pO2 VBG Base Excess Quality Measures Quality Measures sepsis Current suspected stage: sepsis Possible source: pulmonary Blood cultures ordered: completed in ED Antibiotic ordered: Yes Advance care planning discussed with:: patient Assessment & Plan Assessment Current Active Medications: Generic Name Dose Route Start Last Admin Trade Name Freq PRN Reason Stop Dose Admin Amlodipine Besylate 10 mg 03/31/25 07:30 04/02/25 08:41 Amlodipine Besylate 5 Mg Tablet NG 04/19/25 07:29 10 mg DAILY KOURTNEY Administration Ascorbic Acid 500 mg 03/27/25 12:00 04/02/25 08:42 Ascorbic Acid 250 Mg Tablet NG 04/26/25 11:59 500 mg BID KOURTNEY Administration Bumetanide 2 mg 04/02/25 09:00 04/02/25 08:42 Bumetanide 0.5 Mg Tablet PO 05/02/25 08:59 2 mg QDAY KOURTNEY Administration Collagenase 0 gm 04/01/25 11:30 04/02/25 10:45 Collagenase Oint 30 Gm Tube TOP 05/01/25 11:29 1 applicatio DAILY KOURTNEY Administration Cyclobenzaprine HCl 5 mg 03/26/25 08:25 Cyclobenzaprine 5 Mg Tablet PO 04/25/25 08:24 TID PRN MUSCLE SPASMS Protocol Heparin Sodium/Dextrose 25,000 unit in 250 mls @ 18 mls/hr 04/01/25 16:45 04/02/25 11:34 Heparin In D5w Ivpb IV 04/15/25 16:44 9.96 units/kg/hr .[id number] KOURTNEY 20 mls/hr Titration Protocol 8.964 UNITS/KG/HR Insulin Glargine 38 unit 03/30/25 09:00 04/02/25 08:42 Insulin Glargine (Lantus) 5 Unit/0.05 Ml (Per 5 Units) SC 04/29/25 08:59 38 unit QDAY KOURTNEY Administration Insulin Human Lispro 0 unit 03/25/25 12:00 04/02/25 11:52 Insulin Lispro (Admelog) 1 Unit/0.01 Ml Unit SC 04/24/25 11:59 2 unit Q6HR KOURTNEY Administration Protocol Lansoprazole 30 mg 03/23/25 09:30 04/02/25 08:42 Lansoprazole 30 Mg Tab.Rap. NG 04/21/25 08:59 30 mg QDAY KOURTNEY Administration Multivitamins/Minerals 15 ml 03/27/25 12:00 04/02/25 08:41 Multivitamin 15 Ml Udc NG 04/26/25 11:59 15 ml QDAY KOURTNEY Administration Ondansetron HCl 4 mg 03/05/25 20:46 03/09/25 03:49 Ondansetron Inj 2 Mg/Ml Inj 2 Ml IV 04/04/25 20:45 4 mg Q6HR PRN Administration NAUSEA OR VOMITING Protocol Zinc Sulfate 220 mg 03/27/25 12:00 04/02/25 08:42 Zinc Sulfate 220 Mg Capsule NG 04/10/25 11:59 220 mg QDAY KOURTNEY Administration Plan 64-year-old male with significant past medical history of hypertension, diabetes mellitus, A-fib was admitted to the ICU on 02/27/2025 after coming in with altered mental status and shortness of breath, intubated for acute hypoxic respiratory failure and had suspected obesity hypoventilation syndrome/obstructive sleep apnea/pneumonia and acute kidney injury. He was extubated on 03/03 and downgraded then re-intubated on 03/06 due to confusion and tachypneia. He was then extubated and downgraded to the floor on 03/07. On 03/10, patient again had decreased mentation on the BiPAP so was reintubated and upgraded. Cardiology has been consulted for suspected heart failure. #Right congestive heart failure with preserved EF. #Severe BASIA/OHS. Echo on this admission showed poor quality images secondary to the patient's body habitus so was a technically limited study. Suspect chronic right heart failure in the setting of chronic obesity hypoventilation syndrome and obstructive sleep apnea. Currently appears to be more pulmonary component to respiratory failure than cardiac. Requiring ventilation support. -Echo 02/27/25: IVC appears to be dilated and also estimated RVSP also appears to be at least moderately elevated at 55 mmHg. 03/14/25: Will hold dirutics for now , he was given IV fluids yesterday. 03/15/25 : [place] catheter was placed by ICU team which showed PA pressure of more than 30s and wedge pressure was also high . started him on bumex drip . will continue the albumin . he is getting his peg tube today 03/16/25: ICU team tried another [place] catheter today which showed RA pressure of 25, PA pressure of 38, PCWP of 23. Plan is to continue Bumex for him. Cr stable at 2.5 03/17/2025: Net fluid balance -3350 cc. ICU team held Bumex due to significant electrolyte abnormalities, potassium 2.7. Once repleted Bumex drip will be resumed. Continue current management and monitor patient. 03/18/2025: net fluid balance -1650 , he received 1 dose of diamox yesterday. will continue to diures, he is off ventillor in blowby with PRN ventillator when he gets tired. 03/19/2025: no acute overnight event.Balance of -950 . ICU team put a swan catheter which showed he is adequately diressed for now, so bumex on hold for now. pending pegtube placement, its been difficult to do the procedure consedering his Rouxy history. Plan: 03/20/2025: Will hold dirutics for now, he was given IV LR and FWF via NG for hypernatremia. 03/21/2025: no acute overnight event. free water flushes increase today for hypernatremia . Xarelto resumed . bumex on hold ,Dr Doty recommending jejunostomy placement. 03/22/2025:Patient has tracheostomy inplace and is unable to communicate much Telemetry reviewed and rest of the vital signs including the heart rate appears to be stable. Labs showed that the patient still continues to have hyponatremia at 150 and also has elevated creatinine at 2.6 and a BUN of 66. Patient is on renal water flushes for the hyponatremia and creatinine continues to improve and baseline creatinine appears to be around 2.0 Recommend to continue with free water flushes for now. Patient is morbidly obese with multiple comorbidities as mentioned below and overall prognosis appears to be poor Primary team to discuss with the family regarding goals of care. 03/23/2025:Continued on free water flushes, sodium 150 > 149. Renal function showing minor improvement with BUN 63, CR 2.4, EGFR 29. Poor urine output. 2/3+ LE edema noted on exam again. Vitals relatively normal, BP 121/92, HR 98 although spikes of HR 120s noted on tele, continued on blow-by and satting well. ? Continue with free-water flushes, monitor renal function closely ? Continue AMIODARONE 200 mg daily ? Continue AMLODIPINE 10 mg daily ? Continue XARELTO 20 mg ? Okay holding BUMEX 2 mg IV BID as per nephro team, may need HD eventually if renally function not improving, kadi givens persisting edema. 03/25/2025: no acute overnight event, he was given diamox by nephrology speech therapist was at bedside , kidney function improving . Na is normal today at 143 . Bumex still on hold. .Continue amiodarone 200 mg daily, Amlodipine 10 mg daily, Continue XARELTO 20 mg 03/26/2025: no acute overnight event , primary team reffered him to hospice pending decision . Bumex still on hold. .Continue amiodarone 200 mg daily, Amlodipine 10 mg daily, Continue XARELTO 20 mg 03/27/2025: no acute overnight event . Bumex still on hold. .Continue amiodarone 200 mg daily, Amlodipine 10 mg daily, Continue XARELTO 20 mg, his na is 147 . pending disposition as pt patients need more time to decide. 03/28/2025: no acute overnight event . Bumex still on hold. .Continue amiodarone 200 mg daily, Amlodipine 10 mg daily, Continue XARELTO 20 mg, his na is 147 . pending disposition . 03/29/2025: no acute overnight event . Bumex still on hold. .Continue amiodarone 200 mg daily, Amlodipine 10 mg daily, Continue XARELTO 20 mg, his na is 147 . pending disposition He is pending transfer for IR or surgical jejunostomy or PEG placement due to history of Diego-en-Y. 04/01/25: patient might benefit from Bumex, his sodium is 137 and edema is still pretty significant. Resume Bumex 2 mg PO daily. Pending placement. 01/03/25: Continue Bumex 2 mg daily. Sodium today 135. Vitals are stable. #Atrial fibrillation, rate controlled. Patient notes positive history of afib. He had previously been on metoprolol succinate 100 mg BID. Currently appears rate-controlled in the 100s. CHADS-VASc score 4. Plan: -continue Xarelto. -Continue amiodarone 200 mg qday. -Keep potassium >4.0 and mag >2.0. Rest of conditions to continue current management per primary team: #Acute hypoxic respiratory failure s/p tracheostomy. #Morbid obesity. #Community acquired pneumonia. #Elevated LFTs, resolved. #Hyperbilirubinemia, resolved. #History of type 2 diabetes. #Lactic acidosis, resolved. #KENIA on CKD. #Hypernatremia. Discussed the patient with my attending Dr John. Poncho Espinosa MD, PGY 2. Disclaimer: This note was dictated by speech recognition. Minor errors in continuous dryout operator may be present due to voice recognition software.
[2025-04-02] MEDS: AMPICILLIN/SULBAC INJ 1.5 GM in SODIUM CHLORIDE 0.9% (Popper) 50 ML IV (14:25)
--- NOTE | 2025-04-02 14:45 | PD.RESPRO ---
Documentation for date of: 04/02/25 Subjective Subjective Interval history: Pt examined at bedside. No acute overnight events. Pt at this time is refusing some treatments and blood draws. Will reach out to GI in regards to transfer status. Pt will need NGT to come out soon at some point. Pt requiring Ventilation and not tolerating blowby during the day. Exam Vital Signs Temp Pulse Resp BP Pulse Ox O2 Del Method O2 Flow Rate 97.1 F 108 H 18 138/91 H 98 Mechanical Ventilation 10 04/02/25 08:00 04/02/25 11:15 04/02/25 11:15 04/02/25 08:42 04/02/25 11:15 04/02/25 08:00 04/02/25 11:15 FiO2 50 04/02/25 11:15 Narrative Exam General: AAOx3, in mild distress, severely morbidly obese HEENT: Dry mucous membranes, conjunctiva clear, EOMI, PERRLA, trachestomy Cardiovascular: Ejection systolic murmur, radial pulses +2 bilat, irregularly irregular, Pulmonary: FiO2 40, Rate 10, PEEP 8, TV 420, on blow-by GI: No tenderness to light or deep palpitation, no guarding, rigidity, rebound tenderness or distension Extremities: Trace edema in lower extremities bilaterally, dorsalis pedis pulses +2 bilaterally Back: Decubitis ulcer present that appears to be foul smelling and necrotic, no bone visualization Neuro: AAOx3, no focal motor or sensory deficits in the UE or LE bilat Objective Labs 04/02/25 09:34 04/02/25 09:34 Labs: Laboratory Results - last 24 hr 04/01/25 04/01/25 04/02/25 15:40 23:34 09:34 WBC 8.8 RBC 3.85 L Hgb 10.7 L Hct 33.9 L MCV 88 MCH 27.8 MCHC 31.6 RDW Std Deviation 48.0 H Plt Count 287 Neut % (Auto) 69 Lymph % (Auto) 15 [place] % (Auto) 13 H Eos % (Auto) 3 Baso % (Auto) 0 Neut # (Auto) 6.1 Lymph # (Auto) 1.3 [place] # (Auto) 1.1 H Eos # (Auto) 0.3 Baso # (Auto) 0.0 Immature Gran # (Auto) 0.07 H Absolute Nucleated RBC 0.00 Immature Gran % 1 H Nucleated RBC % 0 PT 12.2 INR 1.1 APTT 32.2 28.5 113.6 H* D Sodium 135 L Potassium 3.9 Chloride 97 L Carbon Dioxide 33.6 H Anion Gap 4 L BUN 30 H Creatinine 1.2 Estim Creat Clear Calc 103.0 eGFR > 60 BUN/Creatinine Ratio 25 H Glucose 187 H Calculated Osmolality 281 Calcium 8.2 L Corrected Calcium 8.8 Phosphorus 3.3 Magnesium 1.8 Total Bilirubin 0.5 AST 27 ALT 13 Alkaline Phosphatase 161 H Total Protein 5.9 Albumin 3.2 L Globulin 2.7 Albumin/Globulin Ratio 1.2 ABG Interpretation ABG results: 02/27/25 02/28/25 03/01/25 06:55 04:57 04:39 ABG pH 7.27 L 7.37 D 7.41 ABG pCO2 57 H 48 44 ABG pO2 101 78 L D 69 L ABG HCO3 26 28 H 28 H ABG O2 Saturation 98 95 93 ABG Base Excess -2 2 3 VBG pH VBG pCO2 VBG pO2 VBG Base Excess 03/01/25 03/01/25 03/02/25 13:15 14:52 04:25 ABG pH Cancelled 7.41 7.45 ABG pCO2 Cancelled 45 42 ABG pO2 Cancelled 53 L* 66 L ABG HCO3 Cancelled 28 H 29 H ABG O2 Saturation Cancelled 85 L 92 ABG Base Excess Cancelled 3 5 H VBG pH VBG pCO2 VBG pO2 VBG Base Excess 03/03/25 03/05/25 03/05/25 04:40 16:30 16:55 ABG pH 7.45 Cancelled 7.34 L D ABG pCO2 43 Cancelled 72 H* D ABG pO2 72 L Cancelled 83 ABG HCO3 30 H Cancelled 38 H ABG O2 Saturation 94 Cancelled 95 ABG Base Excess 5 H Cancelled 9 H VBG pH VBG pCO2 VBG pO2 VBG Base Excess 03/05/25 03/06/25 03/06/25 23:36 01:48 05:22 ABG pH 7.37 7.34 L 7.52 H D ABG pCO2 67 H 74 H* 47 D ABG pO2 150 H D 88 D 160 H D ABG HCO3 38 H 40 H 38 H ABG O2 Saturation 99 H 96 100 H ABG Base Excess 10 H 11 H 13 H VBG pH VBG pCO2 VBG pO2 VBG Base Excess 03/06/25 03/07/25 03/07/25 17:10 05:00 14:03 ABG pH 7.46 H ABG pCO2 53 H ABG pO2 65 L D ABG HCO3 38 H ABG O2 Saturation 93 ABG Base Excess 12 H VBG pH 7.50 7.52 VBG pCO2 50 47 VBG pO2 70 H 61 H VBG Base Excess 13 H 14 H 03/09/25 03/09/25 03/09/25 08:17 10:25 17:29 ABG pH 7.25 L D 7.29 L 7.29 L ABG pCO2 93 H* D 85 H* 88 H* ABG pO2 81 L 57 L* D 85 D ABG HCO3 41 H 40 H 43 H ABG O2 Saturation 95 89 L 97 ABG Base Excess 10 H 10 H 12 H VBG pH VBG pCO2 VBG pO2 VBG Base Excess 03/09/25 03/10/25 03/10/25 23:24 07:17 11:25 ABG pH 7.32 L 7.28 L 7.31 L ABG pCO2 78 H* D 90 H* D 81 H* ABG pO2 69 L 47 L* D 63 L ABG HCO3 40 H 43 H 41 H ABG O2 Saturation 94 80 L 93 ABG Base Excess 11 H 12 H 11 H VBG pH VBG pCO2 VBG pO2 VBG Base Excess 03/10/25 03/11/25 03/12/25 16:56 04:19 04:42 ABG pH 7.40 7.48 H 7.43 ABG pCO2 66 H D 54 H D 59 H ABG pO2 68 L 67 L 77 L ABG HCO3 41 H 40 H 39 H ABG O2 Saturation 94 94 96 ABG Base Excess 13 H 15 H 12 H VBG pH VBG pCO2 VBG pO2 VBG Base Excess 03/13/25 03/14/25 03/15/25 04:32 04:25 04:37 ABG pH 7.47 H 7.46 H 7.41 ABG pCO2 53 H 50 H 56 H ABG pO2 60 L 70 L 69 L ABG HCO3 38 H 36 H 35 H ABG O2 Saturation 93 95 95 ABG Base Excess 13 H 10 H 9 H VBG pH VBG pCO2 VBG pO2 VBG Base Excess 03/16/25 03/16/25 03/17/25 04:54 09:53 04:35 ABG pH 7.45 7.48 H 7.47 H ABG pCO2 51 H 49 H 53 H ABG pO2 68 L 34 L* D 87 D ABG HCO3 35 H 37 H 38 H ABG O2 Saturation 95 67 L 97 ABG Base Excess 10 H 12 H 13 H VBG pH VBG pCO2 VBG pO2 VBG Base Excess 03/18/25 03/19/25 03/26/25 04:26 05:00 08:20 ABG pH 7.44 7.45 7.46 H ABG pCO2 57 H 55 H 54 H ABG pO2 107 D 73 L D 79 L ABG HCO3 38 H 38 H 38 H ABG O2 Saturation 99 H 96 97 ABG Base Excess 12 H 12 H 12 H VBG pH VBG pCO2 VBG pO2 VBG Base Excess Quality Measures Quality Measures sepsis Current suspected stage: ruled out Possible source: pulmonary Blood cultures ordered: completed in ED Antibiotic ordered: Yes Advance care planning discussed with:: patient Assessment & Plan Assessment Current Active Medications: Generic Name Dose Route Start Last Admin Trade Name Freq PRN Reason Stop Dose Admin Amlodipine Besylate 10 mg 03/31/25 07:30 04/02/25 08:41 Amlodipine Besylate 5 Mg Tablet NG 04/19/25 07:29 10 mg DAILY KOURTNEY Administration Ascorbic Acid 500 mg 03/27/25 12:00 04/02/25 08:42 Ascorbic Acid 250 Mg Tablet NG 04/26/25 11:59 500 mg BID KOURTNEY Administration Bumetanide 2 mg 04/02/25 09:00 04/02/25 08:42 Bumetanide 0.5 Mg Tablet PO 05/02/25 08:59 2 mg QDAY KOURTNEY Administration Collagenase 0 gm 04/01/25 11:30 04/02/25 10:45 Collagenase Oint 30 Gm Tube TOP 05/01/25 11:29 1 applicatio DAILY KOURTNEY Administration Cyclobenzaprine HCl 5 mg 03/26/25 08:25 Cyclobenzaprine 5 Mg Tablet PO 04/25/25 08:24 TID PRN MUSCLE SPASMS Protocol Heparin Sodium/Dextrose 25,000 unit in 250 mls @ 18 mls/hr 04/01/25 16:45 04/02/25 11:34 Heparin In D5w Ivpb IV 04/15/25 16:44 9.96 units/kg/hr .[id number] KOURTNEY 20 mls/hr Titration Protocol 8.964 UNITS/KG/HR Ampicillin Sodium/Sulbactam 50 mls @ 100 mls/hr 04/02/25 14:15 04/02/25 14:25 Sodium 1.5 gm/ Sodium Chloride IV 04/09/25 14:14 100 mls/hr Q6HR KOURTNEY Administration Insulin Glargine 38 unit 03/30/25 09:00 04/02/25 08:42 Insulin Glargine (Lantus) 5 Unit/0.05 Ml (Per 5 Units) SC 04/29/25 08:59 38 unit QDAY KOURTNEY Administration Insulin Human Lispro 0 unit 03/25/25 12:00 04/02/25 11:52 Insulin Lispro (Admelog) 1 Unit/0.01 Ml Unit SC 04/24/25 11:59 2 unit Q6HR KOURTNEY Administration Protocol Lansoprazole 30 mg 03/23/25 09:30 04/02/25 08:42 Lansoprazole 30 Mg Tab.Rap. NG 04/21/25 08:59 30 mg QDAY KOURTNEY Administration Multivitamins/Minerals 15 ml 03/27/25 12:00 04/02/25 08:41 Multivitamin 15 Ml Udc NG 04/26/25 11:59 15 ml QDAY KOURTNEY Administration Ondansetron HCl 4 mg 03/05/25 20:46 03/09/25 03:49 Ondansetron Inj 2 Mg/Ml Inj 2 Ml IV 04/04/25 20:45 4 mg Q6HR PRN Administration NAUSEA OR VOMITING Protocol Zinc Sulfate 220 mg 03/27/25 12:00 04/02/25 08:42 Zinc Sulfate 220 Mg Capsule NG 04/10/25 11:59 220 mg QDAY KOURTNEY Administration Plan Assessment 64-year-old male with past medical history of DM2, hypertension, A-fib, and Jehova's witness was admitted to the ICU on 02/27/2025 for shock and acute hypoxic respiratory failure. Initiating transfer for higher level of care at this time for Jejunostomy. #Right internal jugular venous thrombosis Venous duplex was Positive for occulsive thrombus in RIJ Plan: ? Heparin Drip per protocol ? Continuing to hold Xarleto #Acute on Chronic Hypoxic Hypercapnic Respiratory Failure #Aspiration Pneumonia #Obesity hypoventilation syndrome and obstructive sleep apnea #Dysphagia #Tracheostomy Pt was unable to have NGT placed by GI General Surgery recommends bariatric surgery to put in PEG GI recommending Jeujunostomy at higher level of care CXR shows RL infiltrate consistent with aspiration Pt may be requiring ventilation now due to infection Plan: ? Pending Transfer to higher level of care for jejunostomy with GI ? 2 Sánchez feedings with 270 cc/2hr water flushes ? Multivitamin ? Unasyn IV ? Blow-By as tolerated #Right diastolic CHF, improved [place] Mary 03/19/2025: RAP 8, PAP 27, PCWP 7 Will not diuresis at this time due to patient previously having free water deficit Plan: ? Decrease water flushes to 270 mL per 2 hours ? Continue strict daily body weight ? Cardiology consulted, appreciate recs ? Continuing to hold Bumex ? Daily weights ? Strict I&O #Hx of A-fib [id number] score of 3 points indicating 3.2% risk of stroke per year HAS-BLED: 0 Plan: ? Heparin drip ? Amio 200 mg QDAY NG ? Potassium and magnesium above 4 and 2 respectively ? Telemetry #Decubitus ulcer Ulcer appears to be have foul odor and is necrotic Patient will likely have worsening of this ulcer, it is not great for yet at this point however due to patient's immobility we can anticipate this will worsen General Surgery recommends conservative and medical management at this time Plan: ? Monitor for signs of infection ? Wound care ? Wound care vitamins including zinc, multivitamin and vitamin C #Morbid obesity #DM2 A1C 7.6 on 03/05/2025 Patient has a BMI of 79.5 Plan: ? ISS scale 2 ? Hypoglycemia protocol ordered ? 38 units of Lantus #Normocytic Anemia likely secondary to anemia of chronic disease given normal MCV. No acute intervention, continue to monitor #Community-acquired pneumonia, Enterobacter [place] #Leukocytosis, resolved #Enterobacter [place]ac[place] pneumonia, resolved. #Acute encephalopathy, resolved #KENIA resolved #Hypokalemia resolved #Hypernatremia resolved #Metabolic alkalosis resolved #Health Maintenance Disposition: Telemetry DVT prophylaxis: Heparin Drip GI prophylaxis: Protonix Diet: NG tube feeds with 2Cal with 270 cc every 2 hours for water flushes CODE STATUS: Full Patient seen and care discussed with my attending physician, Dr. Karolina Shields, PGY-1 Attending Provider Attestation/Addendum I have discussed and was present for the essential components of the history, physical examination, diagnosis, and treatment plan with the resident. I agree with the patient's care as documented by the resident and amended herein by me. Arnol Turcios, DO. Patient seen and evaluated this AM. No acute events overnight, respiratory function has worsened over the last couple of days per chart review, chest x-ray ordered today is demonstrating a diffuse right lung pneumonia, possibly from aspiration, we will start the patient on Unasyn. From chart review also, attempts to transfer the patient has been unsuccessful thus far, Dr. Doty has some contacts in which she will attempt to help us get the patient placed however there is some insurance difficulties. We also had surgery evaluate the patient's necrotic decubital ulcer however no surgical intervention at this time as it appears to be rather superficial and surgical debridement may make healing rather difficult considering its location. Will continue to monitor closely. Although this document has been carefully reviewed, there may still be some phonetic and other typographical errors. These errors are purely grammatical due to imperfections in the software program and should not be construed in any way to compromise the substance of the patient's medical care during this visit.
[2025-04-02] MEDS: CEFEPIME INJ 1 GM in SODIUM CHLORIDE 0.9% (Popper) 50 ML IV ×2 (16:36→21:12)
[2025-04-02] MEDS: metroNIDAZOLE/NS 500 MG IVPB 500 MG/100 ML BAG 200 MG IV ×2 (16:36→21:12)
--- NOTE | 2025-04-02 16:57 | PD.IMPROG ---
Documentation for date of: 04/02/25 Subjective Subjective Interval history: Case discussed with the case management and transfer center Unfortunately patient has this [facility] Patient cannot be sent to [facility] he only can be sent to [facility] where I have less contacts Nonetheless I will work with the transfer center to see if he can find a suitable bed for him Exam Vital Signs Temp Pulse Resp BP Pulse Ox O2 Del Method O2 Flow Rate 97.9 F 107 H 29 H 136/87 H 98 Blow-by 10 04/02/25 16:00 04/02/25 16:00 04/02/25 16:00 04/02/25 16:00 04/02/25 16:00 04/02/25 16:00 04/02/25 11:15 FiO2 50 04/02/25 11:15 Objective Labs 04/02/25 09:34 04/02/25 09:34 Labs: Laboratory Results - last 24 hr 04/01/25 04/02/25 23:34 09:34 WBC 8.8 RBC 3.85 L Hgb 10.7 L Hct 33.9 L MCV 88 MCH 27.8 MCHC 31.6 RDW Std Deviation 48.0 H Plt Count 287 Neut % (Auto) 69 Lymph % (Auto) 15 [place] % (Auto) 13 H Eos % (Auto) 3 Baso % (Auto) 0 Neut # (Auto) 6.1 Lymph # (Auto) 1.3 [place] # (Auto) 1.1 H Eos # (Auto) 0.3 Baso # (Auto) 0.0 Immature Gran # (Auto) 0.07 H Absolute Nucleated RBC 0.00 Immature Gran % 1 H Nucleated RBC % 0 APTT 28.5 113.6 H* D Sodium 135 L Potassium 3.9 Chloride 97 L Carbon Dioxide 33.6 H Anion Gap 4 L BUN 30 H Creatinine 1.2 Estim Creat Clear Calc 103.0 eGFR > 60 BUN/Creatinine Ratio 25 H Glucose 187 H Calculated Osmolality 281 Calcium 8.2 L Corrected Calcium 8.8 Phosphorus 3.3 Magnesium 1.8 Total Bilirubin 0.5 AST 27 ALT 13 Alkaline Phosphatase 161 H Total Protein 5.9 Albumin 3.2 L Globulin 2.7 Albumin/Globulin Ratio 1.2 Impressions Impression: Failure to thrive Enteral feeding via the NGT Working with transfer center to get the procedure done in a tertiary center ABG Interpretation ABG results: 02/27/25 02/28/25 03/01/25 06:55 04:57 04:39 ABG pH 7.27 L 7.37 D 7.41 ABG pCO2 57 H 48 44 ABG pO2 101 78 L D 69 L ABG HCO3 26 28 H 28 H ABG O2 Saturation 98 95 93 ABG Base Excess -2 2 3 VBG pH VBG pCO2 VBG pO2 VBG Base Excess 03/01/25 03/01/25 03/02/25 13:15 14:52 04:25 ABG pH Cancelled 7.41 7.45 ABG pCO2 Cancelled 45 42 ABG pO2 Cancelled 53 L* 66 L ABG HCO3 Cancelled 28 H 29 H ABG O2 Saturation Cancelled 85 L 92 ABG Base Excess Cancelled 3 5 H VBG pH VBG pCO2 VBG pO2 VBG Base Excess 03/03/25 03/05/25 03/05/25 04:40 16:30 16:55 ABG pH 7.45 Cancelled 7.34 L D ABG pCO2 43 Cancelled 72 H* D ABG pO2 72 L Cancelled 83 ABG HCO3 30 H Cancelled 38 H ABG O2 Saturation 94 Cancelled 95 ABG Base Excess 5 H Cancelled 9 H VBG pH VBG pCO2 VBG pO2 VBG Base Excess 03/05/25 03/06/25 03/06/25 23:36 01:48 05:22 ABG pH 7.37 7.34 L 7.52 H D ABG pCO2 67 H 74 H* 47 D ABG pO2 150 H D 88 D 160 H D ABG HCO3 38 H 40 H 38 H ABG O2 Saturation 99 H 96 100 H ABG Base Excess 10 H 11 H 13 H VBG pH VBG pCO2 VBG pO2 VBG Base Excess 03/06/25 03/07/25 03/07/25 17:10 05:00 14:03 ABG pH 7.46 H ABG pCO2 53 H ABG pO2 65 L D ABG HCO3 38 H ABG O2 Saturation 93 ABG Base Excess 12 H VBG pH 7.50 7.52 VBG pCO2 50 47 VBG pO2 70 H 61 H VBG Base Excess 13 H 14 H 03/09/25 03/09/25 03/09/25 08:17 10:25 17:29 ABG pH 7.25 L D 7.29 L 7.29 L ABG pCO2 93 H* D 85 H* 88 H* ABG pO2 81 L 57 L* D 85 D ABG HCO3 41 H 40 H 43 H ABG O2 Saturation 95 89 L 97 ABG Base Excess 10 H 10 H 12 H VBG pH VBG pCO2 VBG pO2 VBG Base Excess 03/09/25 03/10/25 03/10/25 23:24 07:17 11:25 ABG pH 7.32 L 7.28 L 7.31 L ABG pCO2 78 H* D 90 H* D 81 H* ABG pO2 69 L 47 L* D 63 L ABG HCO3 40 H 43 H 41 H ABG O2 Saturation 94 80 L 93 ABG Base Excess 11 H 12 H 11 H VBG pH VBG pCO2 VBG pO2 VBG Base Excess 03/10/25 03/11/25 03/12/25 16:56 04:19 04:42 ABG pH 7.40 7.48 H 7.43 ABG pCO2 66 H D 54 H D 59 H ABG pO2 68 L 67 L 77 L ABG HCO3 41 H 40 H 39 H ABG O2 Saturation 94 94 96 ABG Base Excess 13 H 15 H 12 H VBG pH VBG pCO2 VBG pO2 VBG Base Excess 03/13/25 03/14/25 03/15/25 04:32 04:25 04:37 ABG pH 7.47 H 7.46 H 7.41 ABG pCO2 53 H 50 H 56 H ABG pO2 60 L 70 L 69 L ABG HCO3 38 H 36 H 35 H ABG O2 Saturation 93 95 95 ABG Base Excess 13 H 10 H 9 H VBG pH VBG pCO2 VBG pO2 VBG Base Excess 03/16/25 03/16/25 03/17/25 04:54 09:53 04:35 ABG pH 7.45 7.48 H 7.47 H ABG pCO2 51 H 49 H 53 H ABG pO2 68 L 34 L* D 87 D ABG HCO3 35 H 37 H 38 H ABG O2 Saturation 95 67 L 97 ABG Base Excess 10 H 12 H 13 H VBG pH VBG pCO2 VBG pO2 VBG Base Excess 03/18/25 03/19/25 03/26/25 04:26 05:00 08:20 ABG pH 7.44 7.45 7.46 H ABG pCO2 57 H 55 H 54 H ABG pO2 107 D 73 L D 79 L ABG HCO3 38 H 38 H 38 H ABG O2 Saturation 99 H 96 97 ABG Base Excess 12 H 12 H 12 H VBG pH VBG pCO2 VBG pO2 VBG Base Excess Assessment & Plan A&P Narrative 64-year-old male with significant past medical history of hypertension, diabetes mellitus, A-fib was admitted to the ICU on 02/27/2025 after coming in with altered mental status and shortness of breath, intubated for acute hypoxic respiratory failure and had suspected obesity hypoventilation syndrome/obstructive sleep apnea/pneumonia and acute kidney injury. He was extubated on 03/03 and downgraded then re-intubated on 03/06 due to confusion and tachypneia. He was then extubated and downgraded to the floor on 03/07. On 03/10, patient again had decreased mentation on the BiPAP so was reintubated and upgraded. Cardiology has been consulted for suspected heart failure. #Right congestive heart failure with preserved EF. #Severe BASIA/OHS. #Hypernatremia. Echo on this admission showed poor quality images secondary to the patient's body habitus so was a technically limited study. Suspect chronic right heart failure in the setting of chronic obesity hypoventilation syndrome and obstructive sleep apnea. Currently appears to be more pulmonary component to respiratory failure than cardiac. Requiring ventilation support. -Echo 02/27/25: IVC appears to be dilated and also estimated RVSP also appears to be at least moderately elevated at 55 mmHg. 03/14/25: Will hold dirutics for now , he was given IV fluids yesterday. 03/15/25 : [place] catheter was placed by ICU team which showed PA pressure of more than 30s and wedge pressure was also high . started him on bumex drip . will continue the albumin . he is getting his peg tube today 03/16/25: ICU team tried another [place] catheter today which showed RA pressure of 25, PA pressure of 38, PCWP of 23. Plan is to continue Bumex for him. Cr stable at 2.5 03/17/2025: Net fluid balance -3350 cc. ICU team held Bumex due to significant electrolyte abnormalities, potassium 2.7. Once repleted Bumex drip will be resumed. Continue current management and monitor patient. 03/18/2025: net fluid balance -1650 , he received 1 dose of diamox yesterday. will continue to diures, he is off ventillor in blowby with PRN ventillator when he gets tired. 03/19/2025: no acute overnight event.Balance of -950 . ICU team put a swan catheter which showed he is adequately diressed for now, so bumex on hold for now. pending pegtube placement, its been difficult to do the procedure consedering his Rouxy history. Plan: 03/20/2025: Will hold dirutics for now, he was given IV LR and FWF via NG for hypernatremia. 03/21/2025: no acute overnight event. free water flushes increase today for hypernatremia . Xarelto resumed . bumex on hold ,Dr Doty recommending jejunostomy placement. #Atrial fibrillation, rate controlled. Patient notes positive history of afib. He had previously been on metoprolol succinate 100 mg BID. Currently appears rate-controlled in the 100s. CHADS-VASc score 4 Plan: - Metoprolol on hold in setting of right heart failure . -Resume Xarelto. -Continue amiodarone 200 mg qday. -Keep potassium >4.0 and mag >2.0. Rest of conditions to continue current management per primary team: #Acute hypoxic respiratory failure s/p tracheostomy. #Morbid obesity. #Community acquired pneumonia. #Elevated LFTs, resolved. #Hyperbilirubinemia, resolved. #History of type 2 diabetes. #Lactic acidosis, resolved. #KENIA on CKD. 03/22/2025: Patient has tracheostomy inplace and is unable to communicate much Telemetry reviewed and rest of the vital signs including the heart rate appears to be stable. Labs showed that the patient still continues to have hyponatremia at 150 and also has elevated creatinine at 2.6 and a BUN of 66. Patient is on renal water flushes for the hyponatremia and creatinine continues to improve and baseline creatinine appears to be around 2.0 Recommend to continue with free water flushes for now. Patient is morbidly obese with multiple comorbidities as mentioned below and overall prognosis appears to be poor Primary team to discuss with the family regarding goals of care. Management of rest of the medical conditions as per primary team and other consultants. Thank you for the consult and allowing me to participate in the care of the patient. Cardiology will continue to follow. Kobe Barahona M.D. Interventional Cardiology Time Spent With Patient Time: Total time spent is greater than 50% in coordination of care (as documented) at patient's floor/unit and/or counseling patient:
[2025-04-02] MEDS: Heparin/D5w 25K 250 ML Ivpb 25,000 UNIT/250 ML BAG 20 UNIT IV (17:29)
[2025-04-02 18:16] LABS: Partial Thromboplastin Time 30.3 Seconds (22.0-36.0)
[2025-04-02] MEDS: HEPARIN SOD INJ 5000 UNIT/ML VIAL 8000 UNIT IVP (19:16)
[2025-04-02] MEDS: CYCLObenzaPRINE 5 MG TABLET PO (21:08)
[2025-04-03] VITALS (14 sets, daily range): BP systolic 108–151; BP diastolic 73–104; PULSE 67–909; RESP 14–29; TEMP 36.1–37.2; O2SAT 92–100; BMI 69.5
[2025-04-03 01:50] LABS: Partial Thromboplastin Time 81.9 Seconds (22.0-36.0)
[2025-04-03] MEDS: Heparin/D5w 25K 250 ML Ivpb 25,000 UNIT/250 ML BAG 24.016 UNIT IV (04:31)
[2025-04-03] MEDS: metroNIDAZOLE/NS 500 MG IVPB 500 MG/100 ML BAG 200 MG IV ×3 (05:22→22:38)
[2025-04-03] MEDS: CEFEPIME INJ 1 GM in SODIUM CHLORIDE 0.9% (Popper) 50 ML IV ×3 (05:22→22:00)
[2025-04-03 08:11] LABS: Basophils % (Auto) 0 % (0-2.5); Eosinophils # (Auto) 0.3 Thou/mm3 (0.0-0.5); Eosinophils % (Auto) 3 % (0-10); Hematocrit 35.9 % (41.0-53.0); Hemoglobin 11.1 g/dL (13.5-16.0); Immature Granulocytes % (Auto) 1 % (0-0); Immature Granulocytes Auto 0.08 Thou/mm3 (0.00-0.00); Lymphocytes # (Auto) 1.1 Thou/mm3 (1.0-4.8); Lymphocytes % (Auto) 12 % (10-50); Mean Corpuscular HGB Conc 30.9 g/dl (31.0-37.0); Mean Corpuscular Hemoglobin 28.4 pg (25.0-35.0); Mean Corpuscular Volume 92 fL (80-100); Monocytes # (Auto) 1.3 Thou/mm3 (0.0-0.8); Monocytes % (Auto) 13 % (0-12); Neutrophils # (Auto) 6.8 Thou/mm3 (1.8-7.7); Neutrophils % (Auto) 71 % (37-80); Nucleated Red Blood Cell % 0 /100 WBC (0); Platelet Count 299 Thou/mm3 (140-440); RDW Standard Deviation 49.3 fL (35.1-43.9); Red Blood Count 3.91 Miln/mm3 (4.50-5.90); White Blood Count 9.6 Thou/mm3 (3.8-10.6)
--- NOTE | 2025-04-03 08:18 | PC.CC ---
Addendum entered by Sebastian Dalton RN 04/03/25 14:50: 1422: received call from Jennifer with [facility] requesting condition update for today. Verbal clinical given. She stated she will continue to process and inform us of any updates. Addendum entered by Rashida Horner RN 04/03/25 12:11: called pt father to find out if he knows where the surgery was done, left vm. Addendum entered by Rashida Horner RN 04/03/25 12:09: 1205 spoke to John Paul with [facility] and informed I will try sending transfer request to [facility]. She stated [facility] is not contracted facility with the insurance. But if [facility] says no then they can consider it. Addendum entered by Rashida Horner RN 04/03/25 11:57: Dr. Saini informed me that pt is from [facility] and may be he had the bypass surgery in that area. I will send transfer request to [facility]. Addendum entered by Rashida Horner RN 04/03/25 11:52: [address] Saini and asked if he was able to find out who did Diego-en-Y gastric bypass on patient. He stated pt is not able to communicate and family doesn't know about it either. I also gave him updates on transfer. Addendum entered by Sebastian Dalton RN 04/03/25 11:25: spoke to Eunice at [facility] transfer center, she stated the case is still under dust control engineer. My contact information provided for any further necessary information. Addendum entered by Sebastian Dalton RN 04/03/25 09:09: Spoke to Alta at [facility], she confirmed she received auth from [facility] and is financially cleared and now the transfer center will continue with transfer clearance process. Original Note: Spoke to Rosa at [facility] to request auth for [facility]. Auth to be called to Alta [phone] or to call Sloan at [phone] at [facility].
[2025-04-03 08:33] LABS: Alanine Aminotransferase 11 U/L (10-49); Albumin, Serum 3.2 gm/dL (3.4-4.8); Albumin/Globulin Ratio 1.2 (1.2-2.2); Alkaline Phosphatase 168 U/L (46-116); Anion Gap 5 (7-16); Aspartate Amino Transferase 23 U/L (0-34); BUN/Creatinine Ratio 22 Ratio (12-20); Bilirubin,Total 0.5 mg/dL (0.3-1.2); Blood Urea Nitrogen 24 mg/dL (9-23); Calcium 8.1 mg/dL (8.3-10.6); Calcium (Corrected) 8.7 mg/dL (8.5-10.1); Carbon Dioxide 33.6 mMol/L (20.0-31.0); Chloride 98 mMol/L (98-107); Creatinine (Component) 1.1 mg/dL (0.6-1.3); Estimated Creatinine Clearance 112.3 mL/min (>60); Globulin 2.6 gm/dL (2.3-3.5); Glucose 174 mg/dL (74-106); Magnesium 1.7 mg/dL (1.6-2.6); Osmolality,Calculated 281 (275-295); Phosphorous 3.5 mg/dL (2.4-5.1); Potassium 3.9 mMol/L (3.4-5.1); Sodium 137 mMol/L (136-145); Total Protein 5.8 gm/dL (5.7-8.2); eGFR > 60 See Note
[2025-04-03] MEDS: INSULIN GLARGINE (Lantus) 5 UNIT/0.05 ML (PER 5 UNITS) 38 UNIT SC (09:00)
[2025-04-03] MEDS: AMIODARONE HCL 200 MG TABLET NG (09:01)
[2025-04-03] MEDS: amLODIPine BESYLATE 5 MG TABLET 10 MG NG (09:01)
[2025-04-03] MEDS: BUMETANIDE 0.5 MG TABLET 2 MG PO (09:02)
[2025-04-03] MEDS: MULTIVITAMIN 15 ML UDC NG (09:02)
[2025-04-03] MEDS: LANSOPRAZOLE 30 MG TAB.RAP.DR NG (09:02)
[2025-04-03] MEDS: ASCORBIC ACID 250 MG TABLET 500 MG NG ×2 (09:02→22:00)
[2025-04-03] MEDS: ZINC SULFATE 220 MG CAPSULE NG (09:02)
[2025-04-03] MEDS: COLLAGENASE OINT 30 GM TUBE TOP (09:03)
[2025-04-03 09:07] LABS: INR 1.1 (0.9-1.3); Partial Thromboplastin Time 51.6 Seconds (22.0-36.0); Prothrombin Time 12.4 Seconds (9.0-12.2)
--- NOTE | 2025-04-03 09:49 | PC.SS ---
Follow up note: Speech therapist working with pt. Pt has been on on vent more frequently. Pt is now on IV antibiotic. Attempting to transfer higher level of care with Dr. Doty's assistance for peg tube placement.
--- NOTE | 2025-04-03 11:41 | PD.RESPRO ---
Documentation for date of: 04/03/25 Subjective Subjective Interval history: Patient examined at bedside today. No acute overnight events. Patient's white count 9.6, hemoglobin 11.1, sodium 137, potassium 3.9, magnesium 1.7. Continuing to work on transfer for patient, will try IR PICC line today for patient as NG tube has almost been inpatient for almost 3 weeks. Exam Vital Signs Temp Pulse Resp BP Pulse Ox O2 Del Method O2 Flow Rate 97.0 F 92 25 H 145/92 H 94 L Blow-by 10 04/03/25 08:00 04/03/25 09:02 04/03/25 08:00 04/03/25 09:02 04/03/25 08:00 04/03/25 08:00 04/03/25 08:00 FiO2 50 04/03/25 07:08 Narrative Exam General: AAOx3, in mild distress, severely morbidly obese HEENT: Dry mucous membranes, conjunctiva clear, EOMI, PERRLA, trachestomy Cardiovascular: Ejection systolic murmur, radial pulses +2 bilat, irregularly irregular, Pulmonary: On blow by, Some crackles heard GI: No tenderness to light or deep palpitation, no guarding, rigidity, rebound tenderness or distension Extremities: Trace edema in lower extremities bilaterally, dorsalis pedis pulses +2 bilaterally Back: Decubitis ulcer present that appears to be foul smelling and necrotic, no bone visualization Neuro: AAOx3, no focal motor or sensory deficits in the UE or LE bilat Objective Labs 04/03/25 08:00 04/03/25 08:00 Labs: Laboratory Results - last 24 hr 04/02/25 04/03/25 04/03/25 17:37 01:05 08:00 WBC 9.6 RBC 3.91 L Hgb 11.1 L Hct 35.9 L MCV 92 MCH 28.4 MCHC 30.9 L RDW Std Deviation 49.3 H Plt Count 299 Neut % (Auto) 71 Lymph % (Auto) 12 Riley % (Auto) 13 H Eos % (Auto) 3 Baso % (Auto) 0 Neut # (Auto) 6.8 Lymph # (Auto) 1.1 Riley # (Auto) 1.3 H Eos # (Auto) 0.3 Baso # (Auto) 0.0 Immature Gran # (Auto) 0.08 H Absolute Nucleated RBC 0.00 Immature Gran % 1 H Nucleated RBC % 0 PT 12.4 H INR 1.1 APTT 30.3 D 81.9 H D 51.6 H D Sodium 137 Potassium 3.9 Chloride 98 Carbon Dioxide 33.6 H Anion Gap 5 L BUN 24 H Creatinine 1.1 Estim Creat Clear Calc 112.3 eGFR > 60 BUN/Creatinine Ratio 22 H Glucose 174 H Calculated Osmolality 281 Calcium 8.1 L Corrected Calcium 8.7 Phosphorus 3.5 Magnesium 1.7 Total Bilirubin 0.5 AST 23 ALT 11 Alkaline Phosphatase 168 H Total Protein 5.8 Albumin 3.2 L Globulin 2.6 Albumin/Globulin Ratio 1.2 ABG Interpretation ABG results: 02/27/25 02/28/25 03/01/25 06:55 04:57 04:39 ABG pH 7.27 L 7.37 D 7.41 ABG pCO2 57 H 48 44 ABG pO2 101 78 L D 69 L ABG HCO3 26 28 H 28 H ABG O2 Saturation 98 95 93 ABG Base Excess -2 2 3 VBG pH VBG pCO2 VBG pO2 VBG Base Excess 03/01/25 03/01/25 03/02/25 13:15 14:52 04:25 ABG pH Cancelled 7.41 7.45 ABG pCO2 Cancelled 45 42 ABG pO2 Cancelled 53 L* 66 L ABG HCO3 Cancelled 28 H 29 H ABG O2 Saturation Cancelled 85 L 92 ABG Base Excess Cancelled 3 5 H VBG pH VBG pCO2 VBG pO2 VBG Base Excess 03/03/25 03/05/25 03/05/25 04:40 16:30 16:55 ABG pH 7.45 Cancelled 7.34 L D ABG pCO2 43 Cancelled 72 H* D ABG pO2 72 L Cancelled 83 ABG HCO3 30 H Cancelled 38 H ABG O2 Saturation 94 Cancelled 95 ABG Base Excess 5 H Cancelled 9 H VBG pH VBG pCO2 VBG pO2 VBG Base Excess 03/05/25 03/06/25 03/06/25 23:36 01:48 05:22 ABG pH 7.37 7.34 L 7.52 H D ABG pCO2 67 H 74 H* 47 D ABG pO2 150 H D 88 D 160 H D ABG HCO3 38 H 40 H 38 H ABG O2 Saturation 99 H 96 100 H ABG Base Excess 10 H 11 H 13 H VBG pH VBG pCO2 VBG pO2 VBG Base Excess 03/06/25 03/07/25 03/07/25 17:10 05:00 14:03 ABG pH 7.46 H ABG pCO2 53 H ABG pO2 65 L D ABG HCO3 38 H ABG O2 Saturation 93 ABG Base Excess 12 H VBG pH 7.50 7.52 VBG pCO2 50 47 VBG pO2 70 H 61 H VBG Base Excess 13 H 14 H 03/09/25 03/09/25 03/09/25 08:17 10:25 17:29 ABG pH 7.25 L D 7.29 L 7.29 L ABG pCO2 93 H* D 85 H* 88 H* ABG pO2 81 L 57 L* D 85 D ABG HCO3 41 H 40 H 43 H ABG O2 Saturation 95 89 L 97 ABG Base Excess 10 H 10 H 12 H VBG pH VBG pCO2 VBG pO2 VBG Base Excess 03/09/25 03/10/25 03/10/25 23:24 07:17 11:25 ABG pH 7.32 L 7.28 L 7.31 L ABG pCO2 78 H* D 90 H* D 81 H* ABG pO2 69 L 47 L* D 63 L ABG HCO3 40 H 43 H 41 H ABG O2 Saturation 94 80 L 93 ABG Base Excess 11 H 12 H 11 H VBG pH VBG pCO2 VBG pO2 VBG Base Excess 03/10/25 03/11/25 03/12/25 16:56 04:19 04:42 ABG pH 7.40 7.48 H 7.43 ABG pCO2 66 H D 54 H D 59 H ABG pO2 68 L 67 L 77 L ABG HCO3 41 H 40 H 39 H ABG O2 Saturation 94 94 96 ABG Base Excess 13 H 15 H 12 H VBG pH VBG pCO2 VBG pO2 VBG Base Excess 03/13/25 03/14/25 03/15/25 04:32 04:25 04:37 ABG pH 7.47 H 7.46 H 7.41 ABG pCO2 53 H 50 H 56 H ABG pO2 60 L 70 L 69 L ABG HCO3 38 H 36 H 35 H ABG O2 Saturation 93 95 95 ABG Base Excess 13 H 10 H 9 H VBG pH VBG pCO2 VBG pO2 VBG Base Excess 03/16/25 03/16/25 03/17/25 04:54 09:53 04:35 ABG pH 7.45 7.48 H 7.47 H ABG pCO2 51 H 49 H 53 H ABG pO2 68 L 34 L* D 87 D ABG HCO3 35 H 37 H 38 H ABG O2 Saturation 95 67 L 97 ABG Base Excess 10 H 12 H 13 H VBG pH VBG pCO2 VBG pO2 VBG Base Excess 03/18/25 03/19/25 03/26/25 04:26 05:00 08:20 ABG pH 7.44 7.45 7.46 H ABG pCO2 57 H 55 H 54 H ABG pO2 107 D 73 L D 79 L ABG HCO3 38 H 38 H 38 H ABG O2 Saturation 99 H 96 97 ABG Base Excess 12 H 12 H 12 H VBG pH VBG pCO2 VBG pO2 VBG Base Excess Quality Measures Quality Measures sepsis Current suspected stage: ruled out Possible source: pulmonary Blood cultures ordered: completed in ED Antibiotic ordered: Yes Advance care planning discussed with:: patient Assessment & Plan Assessment Current Active Medications: Generic Name Dose Route Start Last Admin Trade Name Freq PRN Reason Stop Dose Admin Amiodarone HCl 200 mg 04/03/25 09:00 04/03/25 09:01 Amiodarone Hcl 200 Mg Tablet NG 05/03/25 08:59 200 mg QDAY KOURTNEY Administration Amlodipine Besylate 10 mg 03/31/25 07:30 04/03/25 09:01 Amlodipine Besylate 5 Mg Tablet NG 04/19/25 07:29 10 mg DAILY KOURTNEY Administration Ascorbic Acid 500 mg 03/27/25 12:00 04/03/25 09:02 Ascorbic Acid 250 Mg Tablet NG 04/26/25 11:59 500 mg BID KOURTNEY Administration Bumetanide 2 mg 04/02/25 09:00 04/03/25 09:02 Bumetanide 0.5 Mg Tablet PO 05/02/25 08:59 2 mg QDAY KOURTNEY Administration Collagenase 0 gm 04/01/25 11:30 04/03/25 09:03 Collagenase Oint 30 Gm Tube TOP 05/01/25 11:29 1 applicatio DAILY KOURTNYE Administration Cyclobenzaprine HCl 5 mg 03/26/25 08:25 04/02/25 21:08 Cyclobenzaprine 5 Mg Tablet PO 04/25/25 08:24 5 mg TID PRN Administration MUSCLE SPASMS Protocol Heparin Sodium/Dextrose 25,000 unit in 250 mls @ 18 mls/hr 04/01/25 16:45 04/03/25 09:15 Heparin In D5w Ivpb IV 04/15/25 16:44 11.96 units/kg/hr .[id number] KOURTNEY 24.016 mls/hr Titration Protocol 8.964 UNITS/KG/HR Cefepime HCl 1 gm/ Sodium 50 mls @ 100 mls/hr 04/02/25 15:50 04/03/25 06:05 Chloride IV 04/09/25 15:49 Infused Q8HR KOURTNEY Infusion Metronidazole 500 mg in 100 mls @ 200 mls/hr 04/02/25 15:51 04/03/25 06:06 Flagyl 500 Mg Iv IV 04/09/25 15:50 Infused Q8HR KOURTNEY Infusion Insulin Glargine 38 unit 03/30/25 09:00 04/03/25 09:00 Insulin Glargine (Lantus) 5 Unit/0.05 Ml (Per 5 Units) SC 04/29/25 08:59 38 unit QDAY KOURTNEY Administration Insulin Human Lispro 0 unit 03/25/25 12:00 04/03/25 11:28 Insulin Lispro (Admelog) 1 Unit/0.01 Ml Unit SC 04/24/25 11:59 Not Given Q6HR KOURTNEY Protocol Lansoprazole 30 mg 03/23/25 09:30 04/03/25 09:02 Lansoprazole 30 Mg Tab.Rap.Dr CHAPIN 04/21/25 08:59 30 mg QDAY KOURTNEY Administration Multivitamins/Minerals 15 ml 03/27/25 12:00 04/03/25 09:02 Multivitamin 15 Ml Udc NG 04/26/25 11:59 15 ml QDAY KOURTNEY Administration Ondansetron HCl 4 mg 03/05/25 20:46 03/09/25 03:49 Ondansetron Inj 2 Mg/Ml Inj 2 Ml IV 04/04/25 20:45 4 mg Q6HR PRN Administration NAUSEA OR VOMITING Protocol Zinc Sulfate 220 mg 03/27/25 12:00 04/03/25 09:02 Zinc Sulfate 220 Mg Capsule NG 04/10/25 11:59 220 mg QDAY KOURTNEY Administration Plan Assessment 64-year-old male with past medical history of DM2, hypertension, A-fib, and Jehova's witness was admitted to the ICU on 02/27/2025 for shock and acute hypoxic respiratory failure. Initiating transfer for higher level of care at this time for Jejunostomy. #Right internal jugular venous thrombosis Venous duplex was Positive for occulsive thrombus in RIJ Plan: ? Heparin Drip per protocol ? Continuing to hold Xarleto #Acute on Chronic Hypoxic Hypercapnic Respiratory Failure #Aspiration Pneumonia #Obesity hypoventilation syndrome and obstructive sleep apnea #Dysphagia #Tracheostomy Pt was unable to have PEG placed by GI General Surgery recommends bariatric surgery to put in PEG GI recommending IR Jeujunostomy at higher level of care CXR shows RL infiltrate consistent with aspiration Pt may be requiring ventilation now due to infection Will try to insert PICC line for TPN as NGT has been in patient for almost 3 weeks Transfer Nurse is currently working with [facility] [place] who is reviewing the case [facility] could be a potential option if C declines pt's case Plan: ? Pending Transfer to higher level of care for jejunostomy with GI ? 2 Sánchez feedings with 220 cc/2hr water flushes ? IR PICC Line, will hold heparin before procedure ? Multivitamin ? Cefepime IV 1 g every 8 hours and Flagyl 500 mg every 8 hours IV ? Blow-By as tolerated #Right diastolic CHF, improved [place] 03/19/2025: RAP 8, PAP 27, PCWP 7 Due to patient having congestion, will continue with diuresis Sodium 137 today Pt is getting additional fluids from other medicines and abx, will decrease water flushes due to concern for overload Plan: ? Cardiology consulted, appreciate recs ? Decrease water flushes to 220 mL per 2 hours ? Continue strict daily body weight ? Resumed Bumex 2 g daily ? Daily weights ? Strict I&O #Hx of A-fib [id number] score of 3 points indicating 3.2% risk of stroke per year HAS-BLED: 0 Plan: ? Heparin drip ? Amio 200 mg QDAY NG ? Potassium and magnesium above 4 and 2 respectively ? Telemetry #Decubitus ulcer Ulcer appears to be have foul odor and is necrotic Patient will likely have worsening of this ulcer, it is not great for yet at this point however due to patient's immobility we can anticipate this will worsen General Surgery recommends conservative and medical management at this time Plan: ? Monitor for signs of infection ? Wound care ? Wound care vitamins including zinc, multivitamin and vitamin C #Morbid obesity #DM2 A1C 7.6 on 03/05/2025 Patient has a BMI of 79.5 Plan: ? ISS scale 2 ? Hypoglycemia protocol ordered ? 38 units of Lantus #Normocytic Anemia Likely secondary to anemia of chronic disease given normal MCV. No acute intervention, continue to monitor #Community-acquired pneumonia, Enterobacter Cloacoe #Leukocytosis, resolved #Enterobacter cloacoe pneumonia, resolved. #Acute encephalopathy, resolved #KENIA resolved #Hypokalemia resolved #Hypernatremia resolved #Metabolic alkalosis resolved #Health Maintenance Disposition: Telemetry DVT prophylaxis: Heparin Drip GI prophylaxis: Protonix Diet: NG tube feeds with 2Cal with 220 cc every 2 hours for water flushes CODE STATUS: Full Patient seen and care discussed with my attending physician, Dr. Turcios and my senior resident, Dr. Phu Shields, PGY-1 Attending Provider Attestation/Addendum I have discussed and was present for the essential components of the history, physical examination, diagnosis, and treatment plan with the resident. I agree with the patient's care as documented by the resident and amended herein by me. Arnol Turcios, DO. Patient seen and evaluated this AM. No acute events overnight, patient was on blow-by this morning at time of bedside visit however was on mechanical ventilation overnight. 1 bowel movement noted overnight. Hemoglobin stable at 10, bicarb 33 no other significant labs. For the patient's hospital versus ventilator associated pneumonia with likely gram-negative organisms, will continue cefepime and Flagyl at this time. There may be a component of fluid overload hence patient's diuresis has been increased by cardiology to Bumex 2 mg daily. We have also decreased the patient's water flushes. Speech therapy did also evaluate the patient today, she did perform a p.o. trial yesterday to evaluate for possible aspiration no immediate discolored trach secretions were noted following her p.o. trials she will continue p.o. trials with 1 new consistency per day. Unfortunately the patient is not appropriate for a Passy-Daly valve at this time due to acute trach insertion coupled with the size of the tube and length, the trach cannot be downsized at this time. We do not have pulmonology in house at this time for further recommendations. Per speech therapy, the patient should ideally have his swallowing function assessed with instrumentation considering a video swallow evaluation cannot be performed due to the patient's size and the fact that we do not have fiberoptic endoscopic evaluation of swallowing at our hospital. The patient has had an NG tube going on approximately 15 days at this point, and will need a PEG tube however a PEG placement is not possible in this clinical setting at our hospital. The patient has a very small gastric pouch with remnant gastritis in the setting of a previous history of Diego-en-Y gastrojejunostomy. An endoscopy was performed on 03/16 in which this was observed and the procedure was discontinued. A PEG placement per gastroenterology is contraindicated in this clinical setting and recommended consult for IR guided jejunostomy tube for feeding in which we have been trying to transfer the patient which has been unsuccessful thus far. This was also discussed with general surgery who agrees with those recommendations. At present, he is being fed via NG tube stated above however this is only a temporary solution. We are still awaiting transfer to higher level of care for jejunostomy tube insertion, I did speak with the transfer nurse today, [facility] [place] is reviewing the case at present. We are also [facility], apparently the patient's insurance is adding to the difficulty. Appreciate gastroenterology's help with this patient and his transfer. As for the patient's other problems he does have a necrotic pressure ulcer in his sacral area, we did reach out to general surgery yesterday however he feels it is too superficial at this time to intervene with any debridement and would make healing very difficult. For the patient's right congestive heart failure with preserved EF and severe BASIA, we are continuing amiodarone 200 mg daily, amlodipine 10 mg daily, and Bumex 2 mg daily per cardiology recommendations. Patient has been rate controlled for his atrial fibrillation and is presently on a heparin drip that only for A-fib will for the patient's occlusive thrombus in the right internal jugular vein. Will continue to monitor the patient closely while he is here. Although this document has been carefully reviewed, there may still be some phonetic and other typographical errors. These errors are purely grammatical due to imperfections in the software program and should not be construed in any way to compromise the substance of the patient's medical care during this visit.
[2025-04-03] MEDS: CYCLObenzaPRINE 5 MG TABLET PO (12:18)
--- NOTE | 2025-04-03 13:46 | PC.NURSE ---
Orders for pt. to go for PICC insertion for TPN start, Dr. fofana refused to do in IR due to weight limit of equipment, unable to do at bedside. Dr. Blackmon consider central line.
--- NOTE | 2025-04-03 14:18 | ESPR_ITS ---
<Statement entered by Lenora John MD - 04/04/25 13:03> I personally examined evaluate the patient no significant change from yesterday I agree with the treatment plan recommendation as formulated by PGY 3 patient is stable to be discharged from cardiac point of view remains in stable condition with A-fib rate controlled well. Documentation for date of: 04/03/25 Subjective Subjective Interval history: Patient was examined bedside this morning, no acute overnight event. He is back on ventilator. He was on blow-by for a brief amount of time in the morning. Exam Vital Signs Temp Pulse Resp BP Pulse Ox O2 Del Method O2 Flow Rate 97.3 F 106 H 14 151/98 H 92 L Blow-by 10 04/03/25 12:00 04/03/25 12:00 04/03/25 12:00 04/03/25 12:00 04/03/25 12:00 04/03/25 12:00 04/03/25 12:00 FiO2 50 04/03/25 12:00 Narrative Exam Gen: Well-developed and well-nourished morbidly obese male. NG tube in place. HEENT: NCAT, PERRLA, EOMI, MMM, anicteric conjunctivae, tracheostomy in place. CVS: Decreased heart sounds, normal S1 and S2. RRR. No M/R/G. Resp: Decreased breath sounds B/L. No rhonchi, rales, crackles or wheezing. Abd: soft, morbidly obese, non-tender, non-distended. BS+ in all 4 quadrants. Pitting edema over bilateral flanks and sides. MSK: Good ROM in BUE & BLE. 2+ pitting edema BLE. Neuro: Limited exam due to medical condition. Objective Labs 04/03/25 08:00 04/03/25 08:00 Labs: Laboratory Results - last 24 hr 04/02/25 04/03/25 04/03/25 17:37 01:05 08:00 WBC 9.6 RBC 3.91 L Hgb 11.1 L Hct 35.9 L MCV 92 MCH 28.4 MCHC 30.9 L RDW Std Deviation 49.3 H Plt Count 299 Neut % (Auto) 71 Lymph % (Auto) 12 [place] % (Auto) 13 H Eos % (Auto) 3 Baso % (Auto) 0 Neut # (Auto) 6.8 Lymph # (Auto) 1.1 [place] # (Auto) 1.3 H Eos # (Auto) 0.3 Baso # (Auto) 0.0 Immature Gran # (Auto) 0.08 H Absolute Nucleated RBC 0.00 Immature Gran % 1 H Nucleated RBC % 0 PT 12.4 H INR 1.1 APTT 30.3 D 81.9 H D 51.6 H D Sodium 137 Potassium 3.9 Chloride 98 Carbon Dioxide 33.6 H Anion Gap 5 L BUN 24 H Creatinine 1.1 Estim Creat Clear Calc 112.3 eGFR > 60 BUN/Creatinine Ratio 22 H Glucose 174 H Calculated Osmolality 281 Calcium 8.1 L Corrected Calcium 8.7 Phosphorus 3.5 Magnesium 1.7 Total Bilirubin 0.5 AST 23 ALT 11 Alkaline Phosphatase 168 H Total Protein 5.8 Albumin 3.2 L Globulin 2.6 Albumin/Globulin Ratio 1.2 ABG Interpretation ABG results: 02/27/25 02/28/25 03/01/25 06:55 04:57 04:39 ABG pH 7.27 L 7.37 D 7.41 ABG pCO2 57 H 48 44 ABG pO2 101 78 L D 69 L ABG HCO3 26 28 H 28 H ABG O2 Saturation 98 95 93 ABG Base Excess -2 2 3 VBG pH VBG pCO2 VBG pO2 VBG Base Excess 03/01/25 03/01/25 03/02/25 13:15 14:52 04:25 ABG pH Cancelled 7.41 7.45 ABG pCO2 Cancelled 45 42 ABG pO2 Cancelled 53 L* 66 L ABG HCO3 Cancelled 28 H 29 H ABG O2 Saturation Cancelled 85 L 92 ABG Base Excess Cancelled 3 5 H VBG pH VBG pCO2 VBG pO2 VBG Base Excess 03/03/25 03/05/25 03/05/25 04:40 16:30 16:55 ABG pH 7.45 Cancelled 7.34 L D ABG pCO2 43 Cancelled 72 H* D ABG pO2 72 L Cancelled 83 ABG HCO3 30 H Cancelled 38 H ABG O2 Saturation 94 Cancelled 95 ABG Base Excess 5 H Cancelled 9 H VBG pH VBG pCO2 VBG pO2 VBG Base Excess 03/05/25 03/06/25 03/06/25 23:36 01:48 05:22 ABG pH 7.37 7.34 L 7.52 H D ABG pCO2 67 H 74 H* 47 D ABG pO2 150 H D 88 D 160 H D ABG HCO3 38 H 40 H 38 H ABG O2 Saturation 99 H 96 100 H ABG Base Excess 10 H 11 H 13 H VBG pH VBG pCO2 VBG pO2 VBG Base Excess 03/06/25 03/07/25 03/07/25 17:10 05:00 14:03 ABG pH 7.46 H ABG pCO2 53 H ABG pO2 65 L D ABG HCO3 38 H ABG O2 Saturation 93 ABG Base Excess 12 H VBG pH 7.50 7.52 VBG pCO2 50 47 VBG pO2 70 H 61 H VBG Base Excess 13 H 14 H 03/09/25 03/09/25 03/09/25 08:17 10:25 17:29 ABG pH 7.25 L D 7.29 L 7.29 L ABG pCO2 93 H* D 85 H* 88 H* ABG pO2 81 L 57 L* D 85 D ABG HCO3 41 H 40 H 43 H ABG O2 Saturation 95 89 L 97 ABG Base Excess 10 H 10 H 12 H VBG pH VBG pCO2 VBG pO2 VBG Base Excess 03/09/25 03/10/25 03/10/25 23:24 07:17 11:25 ABG pH 7.32 L 7.28 L 7.31 L ABG pCO2 78 H* D 90 H* D 81 H* ABG pO2 69 L 47 L* D 63 L ABG HCO3 40 H 43 H 41 H ABG O2 Saturation 94 80 L 93 ABG Base Excess 11 H 12 H 11 H VBG pH VBG pCO2 VBG pO2 VBG Base Excess 03/10/25 03/11/25 03/12/25 16:56 04:19 04:42 ABG pH 7.40 7.48 H 7.43 ABG pCO2 66 H D 54 H D 59 H ABG pO2 68 L 67 L 77 L ABG HCO3 41 H 40 H 39 H ABG O2 Saturation 94 94 96 ABG Base Excess 13 H 15 H 12 H VBG pH VBG pCO2 VBG pO2 VBG Base Excess 03/13/25 03/14/25 03/15/25 04:32 04:25 04:37 ABG pH 7.47 H 7.46 H 7.41 ABG pCO2 53 H 50 H 56 H ABG pO2 60 L 70 L 69 L ABG HCO3 38 H 36 H 35 H ABG O2 Saturation 93 95 95 ABG Base Excess 13 H 10 H 9 H VBG pH VBG pCO2 VBG pO2 VBG Base Excess 03/16/25 03/16/25 03/17/25 04:54 09:53 04:35 ABG pH 7.45 7.48 H 7.47 H ABG pCO2 51 H 49 H 53 H ABG pO2 68 L 34 L* D 87 D ABG HCO3 35 H 37 H 38 H ABG O2 Saturation 95 67 L 97 ABG Base Excess 10 H 12 H 13 H VBG pH VBG pCO2 VBG pO2 VBG Base Excess 03/18/25 03/19/25 03/26/25 04:26 05:00 08:20 ABG pH 7.44 7.45 7.46 H ABG pCO2 57 H 55 H 54 H ABG pO2 107 D 73 L D 79 L ABG HCO3 38 H 38 H 38 H ABG O2 Saturation 99 H 96 97 ABG Base Excess 12 H 12 H 12 H VBG pH VBG pCO2 VBG pO2 VBG Base Excess Quality Measures Quality Measures sepsis Current suspected stage: ruled out Possible source: pulmonary Blood cultures ordered: completed in ED Antibiotic ordered: Yes Advance care planning discussed with:: patient Assessment & Plan Assessment Current Active Medications: Generic Name Dose Route Start Last Admin Trade Name Freq PRN Reason Stop Dose Admin Amiodarone HCl 200 mg 04/03/25 09:00 04/03/25 09:01 Amiodarone Hcl 200 Mg Tablet NG 05/03/25 08:59 200 mg QDAY KOURTNEY Administration Amlodipine Besylate 10 mg 03/31/25 07:30 04/03/25 09:01 Amlodipine Besylate 5 Mg Tablet NG 04/19/25 07:29 10 mg DAILY KOURTNEY Administration Ascorbic Acid 500 mg 03/27/25 12:00 04/03/25 09:02 Ascorbic Acid 250 Mg Tablet NG 04/26/25 11:59 500 mg BID KOURTNEY Administration Bumetanide 2 mg 04/02/25 09:00 04/03/25 09:02 Bumetanide 0.5 Mg Tablet PO 05/02/25 08:59 2 mg QDAY KOURTNEY Administration Collagenase 0 gm 04/01/25 11:30 04/03/25 09:03 Collagenase Oint 30 Gm Tube TOP 05/01/25 11:29 1 applicatio DAILY KOURTNEY Administration Cyclobenzaprine HCl 5 mg 03/26/25 08:25 04/03/25 12:18 Cyclobenzaprine 5 Mg Tablet PO 04/25/25 08:24 5 mg TID PRN Administration MUSCLE SPASMS Protocol Heparin Sodium/Dextrose 25,000 unit in 250 mls @ 18 mls/hr 04/01/25 16:45 04/03/25 09:15 Heparin In D5w Ivpb IV 04/15/25 16:44 11.96 units/kg/hr .[id number] KOURTNEY 24.016 mls/hr Titration Protocol 8.964 UNITS/KG/HR Cefepime HCl 1 gm/ Sodium 50 mls @ 100 mls/hr 04/02/25 15:50 04/03/25 13:48 Chloride IV 04/09/25 15:49 100 mls/hr Q8HR KOURTNEY Administration Metronidazole 500 mg in 100 mls @ 200 mls/hr 04/02/25 15:51 04/03/25 13:49 Flagyl 500 Mg Iv IV 04/09/25 15:50 200 mls/hr Q8HR KOURTNEY Administration Insulin Glargine 38 unit 03/30/25 09:00 04/03/25 09:00 Insulin Glargine (Lantus) 5 Unit/0.05 Ml (Per 5 Units) SC 04/29/25 08:59 38 unit QDAY KOURTNEY Administration Insulin Human Lispro 0 unit 03/25/25 12:00 04/03/25 11:28 Insulin Lispro (Admelog) 1 Unit/0.01 Ml Unit SC 04/24/25 11:59 Not Given Q6HR KOURTNEY Protocol Lansoprazole 30 mg 03/23/25 09:30 04/03/25 09:02 Lansoprazole 30 Mg Tab.Rap.Dr CHAPIN 04/21/25 08:59 30 mg QDAY KOURTNEY Administration Multivitamins/Minerals 15 ml 03/27/25 12:00 04/03/25 09:02 Multivitamin 15 Ml Udc NG 04/26/25 11:59 15 ml QDAY KOURTNEY Administration Ondansetron HCl 4 mg 03/05/25 20:46 03/09/25 03:49 Ondansetron Inj 2 Mg/Ml Inj 2 Ml IV 04/04/25 20:45 4 mg Q6HR PRN Administration NAUSEA OR VOMITING Protocol Zinc Sulfate 220 mg 03/27/25 12:00 04/03/25 09:02 Zinc Sulfate 220 Mg Capsule NG 04/10/25 11:59 220 mg QDAY KOURTNEY Administration Plan 64-year-old male with significant past medical history of hypertension, diabetes mellitus, A-fib was admitted to the ICU on 02/27/2025 after coming in with altered mental status and shortness of breath, intubated for acute hypoxic respiratory failure and had suspected obesity hypoventilation syndrome/obstructive sleep apnea/pneumonia and acute kidney injury. He was extubated on 03/03 and downgraded then re-intubated on 03/06 due to confusion and tachypneia. He was then extubated and downgraded to the floor on 03/07. On 03/10, patient again had decreased mentation on the BiPAP so was reintubated and upgraded. Cardiology has been consulted for suspected heart failure. #Right congestive heart failure with preserved EF. #Severe BASIA/OHS. Echo on this admission showed poor quality images secondary to the patient's body habitus so was a technically limited study. Suspect chronic right heart failure in the setting of chronic obesity hypoventilation syndrome and obstructive sleep apnea. Currently appears to be more pulmonary component to respiratory failure than cardiac. Requiring ventilation support. -Echo 02/27/25: IVC appears to be dilated and also estimated RVSP also appears to be at least moderately elevated at 55 mmHg. 03/14/25: Will hold dirutics for now , he was given IV fluids yesterday. 03/15/25 : [place] catheter was placed by ICU team which showed PA pressure of more than 30s and wedge pressure was also high . started him on bumex drip . will continue the albumin . he is getting his peg tube today 03/16/25: ICU team tried another [place] catheter today which showed RA pressure of 25, PA pressure of 38, PCWP of 23. Plan is to continue Bumex for him. Cr stable at 2.5 03/17/2025: Net fluid balance -3350 cc. ICU team held Bumex due to significant electrolyte abnormalities, potassium 2.7. Once repleted Bumex drip will be resumed. Continue current management and monitor patient. 03/18/2025: net fluid balance -1650 , he received 1 dose of diamox yesterday. will continue to diures, he is off ventillor in blowby with PRN ventillator when he gets tired. 03/19/2025: no acute overnight event.Balance of -950 . ICU team put a swan catheter which showed he is adequately diressed for now, so bumex on hold for now. pending pegtube placement, its been difficult to do the procedure consedering his Rouxy history. Plan: 03/20/2025: Will hold dirutics for now, he was given IV LR and FWF via NG for hypernatremia. 03/21/2025: no acute overnight event. free water flushes increase today for hypernatremia . Xarelto resumed . bumex on hold ,Dr Doty recommending jejunostomy placement. 03/22/2025:Patient has tracheostomy inplace and is unable to communicate much Telemetry reviewed and rest of the vital signs including the heart rate appears to be stable. Labs showed that the patient still continues to have hyponatremia at 150 and also has elevated creatinine at 2.6 and a BUN of 66. Patient is on renal water flushes for the hyponatremia and creatinine continues to improve and baseline creatinine appears to be around 2.0 Recommend to continue with free water flushes for now. Patient is morbidly obese with multiple comorbidities as mentioned below and overall prognosis appears to be poor Primary team to discuss with the family regarding goals of care. 03/23/2025:Continued on free water flushes, sodium 150 > 149. Renal function showing minor improvement with BUN 63, CR 2.4, EGFR 29. Poor urine output. 2/3+ LE edema noted on exam again. Vitals relatively normal, BP 121/92, HR 98 although spikes of HR 120s noted on tele, continued on blow-by and satting well.? Continue with free-water flushes, monitor renal function closely,Continue AMIODARONE 200 mg daily, Continue AMLODIPINE 10 mg daily,Continue XARELTO 20 mg, Okay holding BUMEX 2 mg IV BID as per nephro team, may need HD eventually if renally function not improving, kadi givens persisting edema. 03/25/2025: no acute overnight event, he was given diamox by nephrology speech therapist was at bedside , kidney function improving . Na is normal today at 143 . Bumex still on hold. .Continue amiodarone 200 mg daily, Amlodipine 10 mg daily, Continue XARELTO 20 mg 03/26/2025: no acute overnight event , primary team reffered him to hospice pending decision . Bumex still on hold. .Continue amiodarone 200 mg daily, Amlodipine 10 mg daily, Continue XARELTO 20 mg 03/27/2025: no acute overnight event . Bumex still on hold. .Continue amiodarone 200 mg daily, Amlodipine 10 mg daily, Continue XARELTO 20 mg, his na is 147 . pending disposition as pt patients need more time to decide. 03/28/2025: no acute overnight event . Bumex still on hold. .Continue amiodarone 200 mg daily, Amlodipine 10 mg daily, Continue XARELTO 20 mg, his na is 147 . pending disposition . 03/29/2025: no acute overnight event . Bumex still on hold. .Continue amiodarone 200 mg daily, Amlodipine 10 mg daily, Continue XARELTO 20 mg, his na is 147 . pending disposition He is pending transfer for IR or surgical jejunostomy or PEG placement due to history of [place]-Y. 04/01/25: patient might benefit from Bumex, his sodium is 137 and edema is still pretty significant. Resume Bumex 2 mg PO daily. Pending placement. 04/02/25: Continue Bumex 2 mg daily. Sodium today 135. Vitals are stable. 04/03/2025: no acute overnight event. He is back on ventilator. He was on blow- by for a brief amount of time in the morning.Continue Bumex 2mg Q day. he is having good urine output. #Atrial fibrillation, rate controlled. Patient notes positive history of afib. He had previously been on metoprolol succinate 100 mg BID. Currently appears rate-controlled in the 100s. CHADS-VASc score 4. Plan: -continue Xarelto. -Continue amiodarone 200 mg qday. -Keep potassium >4.0 and mag >2.0. Rest of conditions to continue current management per primary team: #Acute hypoxic respiratory failure s/p tracheostomy. #Morbid obesity. #Community acquired pneumonia. #Elevated LFTs, resolved. #Hyperbilirubinemia, resolved. #History of type 2 diabetes. #Lactic acidosis, resolved. #KENIA on CKD. #Hypernatremia. Discussed the patient with my attending Dr John. Shaina Newell MD,PGY-3
[2025-04-03 15:26] LABS: Partial Thromboplastin Time 31.5 Seconds (22.0-36.0)
--- NOTE | 2025-04-03 16:07 | PC.NURSE ---
Dr. Shields aware of PTT 31.5, orders heparin bolus per protocol 80 units/kg. Increasing heparin drip rate per protocol.
[2025-04-03] MEDS: HEPARIN SOD INJ 5000 UNIT/ML VIAL 8000 UNIT IVP (16:17)
[2025-04-03] MEDS: Magnesium Sulfate 2 GM Ivpb 2 GM/50 ML BAG IV (16:20)
[2025-04-03] MEDS: POTASSIUM CHLORIDE 10% 20 MEQ/15 ML UDC NG (16:28)
--- NOTE | 2025-04-03 16:45 | PC.NURSE ---
Per Dr. Blackmon due to pt. current state and blood clot to right arm, pt. not candidate for central line placement. no further orders at this time.
--- NOTE | 2025-04-03 16:54 | PC.NURSE ---
per Dr Blackmon No PICC line or central line at this time, may resume tube feeds. no further orders at this time.
[2025-04-03] MEDS: Heparin/D5w 25K 250 ML Ivpb 25,000 UNIT/250 ML BAG 32.048 UNIT IV (18:56)
--- NOTE | 2025-04-03 19:27 | PD.IMPROG ---
Documentation for date of: 04/03/25 Subjective Subjective Interval history: Working with case management No bed available yet Exam Vital Signs Temp Pulse Resp BP Pulse Ox O2 Del Method O2 Flow Rate 97.0 F 71 19 145/91 H 96 Mechanical Ventilation 10 04/03/25 16:00 04/03/25 18:17 04/03/25 18:17 04/03/25 16:00 04/03/25 18:17 04/03/25 16:00 04/03/25 16:00 FiO2 50 04/03/25 18:17 Objective Labs 04/03/25 08:00 04/03/25 08:00 Labs: Laboratory Results - last 24 hr 04/03/25 04/03/25 04/03/25 01:05 08:00 15:02 WBC 9.6 RBC 3.91 L Hgb 11.1 L Hct 35.9 L MCV 92 MCH 28.4 MCHC 30.9 L RDW Std Deviation 49.3 H Plt Count 299 Neut % (Auto) 71 Lymph % (Auto) 12 [place] % (Auto) 13 H Eos % (Auto) 3 Baso % (Auto) 0 Neut # (Auto) 6.8 Lymph # (Auto) 1.1 [place] # (Auto) 1.3 H Eos # (Auto) 0.3 Baso # (Auto) 0.0 Immature Gran # (Auto) 0.08 H Absolute Nucleated RBC 0.00 Immature Gran % 1 H Nucleated RBC % 0 PT 12.4 H INR 1.1 APTT 81.9 H D 51.6 H D 31.5 D Sodium 137 Potassium 3.9 Chloride 98 Carbon Dioxide 33.6 H Anion Gap 5 L BUN 24 H Creatinine 1.1 Estim Creat Clear Calc 112.3 eGFR > 60 BUN/Creatinine Ratio 22 H Glucose 174 H Calculated Osmolality 281 Calcium 8.1 L Corrected Calcium 8.7 Phosphorus 3.5 Magnesium 1.7 Total Bilirubin 0.5 AST 23 ALT 11 Alkaline Phosphatase 168 H Total Protein 5.8 Albumin 3.2 L Globulin 2.6 Albumin/Globulin Ratio 1.2 Impressions Impression: Failure to thrive Continue current management ABG Interpretation ABG results: 02/27/25 02/28/25 03/01/25 06:55 04:57 04:39 ABG pH 7.27 L 7.37 D 7.41 ABG pCO2 57 H 48 44 ABG pO2 101 78 L D 69 L ABG HCO3 26 28 H 28 H ABG O2 Saturation 98 95 93 ABG Base Excess -2 2 3 VBG pH VBG pCO2 VBG pO2 VBG Base Excess 03/01/25 03/01/25 03/02/25 13:15 14:52 04:25 ABG pH Cancelled 7.41 7.45 ABG pCO2 Cancelled 45 42 ABG pO2 Cancelled 53 L* 66 L ABG HCO3 Cancelled 28 H 29 H ABG O2 Saturation Cancelled 85 L 92 ABG Base Excess Cancelled 3 5 H VBG pH VBG pCO2 VBG pO2 VBG Base Excess 03/03/25 03/05/25 03/05/25 04:40 16:30 16:55 ABG pH 7.45 Cancelled 7.34 L D ABG pCO2 43 Cancelled 72 H* D ABG pO2 72 L Cancelled 83 ABG HCO3 30 H Cancelled 38 H ABG O2 Saturation 94 Cancelled 95 ABG Base Excess 5 H Cancelled 9 H VBG pH VBG pCO2 VBG pO2 VBG Base Excess 03/05/25 03/06/25 03/06/25 23:36 01:48 05:22 ABG pH 7.37 7.34 L 7.52 H D ABG pCO2 67 H 74 H* 47 D ABG pO2 150 H D 88 D 160 H D ABG HCO3 38 H 40 H 38 H ABG O2 Saturation 99 H 96 100 H ABG Base Excess 10 H 11 H 13 H VBG pH VBG pCO2 VBG pO2 VBG Base Excess 03/06/25 03/07/25 03/07/25 17:10 05:00 14:03 ABG pH 7.46 H ABG pCO2 53 H ABG pO2 65 L D ABG HCO3 38 H ABG O2 Saturation 93 ABG Base Excess 12 H VBG pH 7.50 7.52 VBG pCO2 50 47 VBG pO2 70 H 61 H VBG Base Excess 13 H 14 H 03/09/25 03/09/25 03/09/25 08:17 10:25 17:29 ABG pH 7.25 L D 7.29 L 7.29 L ABG pCO2 93 H* D 85 H* 88 H* ABG pO2 81 L 57 L* D 85 D ABG HCO3 41 H 40 H 43 H ABG O2 Saturation 95 89 L 97 ABG Base Excess 10 H 10 H 12 H VBG pH VBG pCO2 VBG pO2 VBG Base Excess 03/09/25 03/10/25 03/10/25 23:24 07:17 11:25 ABG pH 7.32 L 7.28 L 7.31 L ABG pCO2 78 H* D 90 H* D 81 H* ABG pO2 69 L 47 L* D 63 L ABG HCO3 40 H 43 H 41 H ABG O2 Saturation 94 80 L 93 ABG Base Excess 11 H 12 H 11 H VBG pH VBG pCO2 VBG pO2 VBG Base Excess 03/10/25 03/11/25 03/12/25 16:56 04:19 04:42 ABG pH 7.40 7.48 H 7.43 ABG pCO2 66 H D 54 H D 59 H ABG pO2 68 L 67 L 77 L ABG HCO3 41 H 40 H 39 H ABG O2 Saturation 94 94 96 ABG Base Excess 13 H 15 H 12 H VBG pH VBG pCO2 VBG pO2 VBG Base Excess 03/13/25 03/14/25 03/15/25 04:32 04:25 04:37 ABG pH 7.47 H 7.46 H 7.41 ABG pCO2 53 H 50 H 56 H ABG pO2 60 L 70 L 69 L ABG HCO3 38 H 36 H 35 H ABG O2 Saturation 93 95 95 ABG Base Excess 13 H 10 H 9 H VBG pH VBG pCO2 VBG pO2 VBG Base Excess 03/16/25 03/16/25 03/17/25 04:54 09:53 04:35 ABG pH 7.45 7.48 H 7.47 H ABG pCO2 51 H 49 H 53 H ABG pO2 68 L 34 L* D 87 D ABG HCO3 35 H 37 H 38 H ABG O2 Saturation 95 67 L 97 ABG Base Excess 10 H 12 H 13 H VBG pH VBG pCO2 VBG pO2 VBG Base Excess 03/18/25 03/19/25 03/26/25 04:26 05:00 08:20 ABG pH 7.44 7.45 7.46 H ABG pCO2 57 H 55 H 54 H ABG pO2 107 D 73 L D 79 L ABG HCO3 38 H 38 H 38 H ABG O2 Saturation 99 H 96 97 ABG Base Excess 12 H 12 H 12 H VBG pH VBG pCO2 VBG pO2 VBG Base Excess Assessment & Plan A&P Narrative 64-year-old male with significant past medical history of hypertension, diabetes mellitus, A-fib was admitted to the ICU on 02/27/2025 after coming in with altered mental status and shortness of breath, intubated for acute hypoxic respiratory failure and had suspected obesity hypoventilation syndrome/obstructive sleep apnea/pneumonia and acute kidney injury. He was extubated on 03/03 and downgraded then re-intubated on 03/06 due to confusion and tachypneia. He was then extubated and downgraded to the floor on 03/07. On 03/10, patient again had decreased mentation on the BiPAP so was reintubated and upgraded. Cardiology has been consulted for suspected heart failure. #Right congestive heart failure with preserved EF. #Severe BASIA/OHS. #Hypernatremia. Echo on this admission showed poor quality images secondary to the patient's body habitus so was a technically limited study. Suspect chronic right heart failure in the setting of chronic obesity hypoventilation syndrome and obstructive sleep apnea. Currently appears to be more pulmonary component to respiratory failure than cardiac. Requiring ventilation support. -Echo 02/27/25: IVC appears to be dilated and also estimated RVSP also appears to be at least moderately elevated at 55 mmHg. 03/14/25: Will hold dirutics for now , he was given IV fluids yesterday. 03/15/25 : [place] catheter was placed by ICU team which showed PA pressure of more than 30s and wedge pressure was also high . started him on bumex drip . will continue the albumin . he is getting his peg tube today 03/16/25: ICU team tried another [place] catheter today which showed RA pressure of 25, PA pressure of 38, PCWP of 23. Plan is to continue Bumex for him. Cr stable at 2.5 03/17/2025: Net fluid balance -3350 cc. ICU team held Bumex due to significant electrolyte abnormalities, potassium 2.7. Once repleted Bumex drip will be resumed. Continue current management and monitor patient. 03/18/2025: net fluid balance -1650 , he received 1 dose of diamox yesterday. will continue to diures, he is off ventillor in blowby with PRN ventillator when he gets tired. 03/19/2025: no acute overnight event.Balance of -950 . ICU team put a swan catheter which showed he is adequately diressed for now, so bumex on hold for now. pending pegtube placement, its been difficult to do the procedure consedering his Rouxy history. Plan: 03/20/2025: Will hold dirutics for now, he was given IV LR and FWF via NG for hypernatremia. 03/21/2025: no acute overnight event. free water flushes increase today for hypernatremia . Xarelto resumed . bumex on hold ,Dr Doty recommending jejunostomy placement. #Atrial fibrillation, rate controlled. Patient notes positive history of afib. He had previously been on metoprolol succinate 100 mg BID. Currently appears rate-controlled in the 100s. CHADS-VASc score 4 Plan: - Metoprolol on hold in setting of right heart failure . -Resume Xarelto. -Continue amiodarone 200 mg qday. -Keep potassium >4.0 and mag >2.0. Rest of conditions to continue current management per primary team: #Acute hypoxic respiratory failure s/p tracheostomy. #Morbid obesity. #Community acquired pneumonia. #Elevated LFTs, resolved. #Hyperbilirubinemia, resolved. #History of type 2 diabetes. #Lactic acidosis, resolved. #KENIA on CKD. 03/22/2025: Patient has tracheostomy inplace and is unable to communicate much Telemetry reviewed and rest of the vital signs including the heart rate appears to be stable. Labs showed that the patient still continues to have hyponatremia at 150 and also has elevated creatinine at 2.6 and a BUN of 66. Patient is on renal water flushes for the hyponatremia and creatinine continues to improve and baseline creatinine appears to be around 2.0 Recommend to continue with free water flushes for now. Patient is morbidly obese with multiple comorbidities as mentioned below and overall prognosis appears to be poor Primary team to discuss with the family regarding goals of care. Management of rest of the medical conditions as per primary team and other consultants. Thank you for the consult and allowing me to participate in the care of the patient. Cardiology will continue to follow. Kobe Barahona M.D. Interventional Cardiology Time Spent With Patient Time: Total time spent is greater than 50% in coordination of care (as documented) at patient's floor/unit and/or counseling patient:
[2025-04-04] VITALS (10 sets, daily range): BP systolic 118–148; BP diastolic 75–92; PULSE 59–125; RESP 18–45; TEMP 36.1–36.4; O2SAT 92–98
[2025-04-04 05:48] LABS: Basophils % (Auto) 0 % (0-2.5); Eosinophils # (Auto) 0.3 Thou/mm3 (0.0-0.5); Eosinophils % (Auto) 3 % (0-10); Hemoglobin 10.1 g/dL (13.5-16.0); Immature Granulocytes % (Auto) 1 % (0-0); Immature Granulocytes Auto 0.08 Thou/mm3 (0.00-0.00); Lymphocytes # (Auto) 1.1 Thou/mm3 (1.0-4.8); Lymphocytes % (Auto) 11 % (10-50); Mean Corpuscular HGB Conc 30.6 g/dl (31.0-37.0); Mean Corpuscular Hemoglobin 28.1 pg (25.0-35.0); Mean Corpuscular Volume 92 fL (80-100); Monocytes # (Auto) 1.1 Thou/mm3 (0.0-0.8); Monocytes % (Auto) 12 % (0-12); Neutrophils # (Auto) 6.8 Thou/mm3 (1.8-7.7); Neutrophils % (Auto) 73 % (37-80); Nucleated Red Blood Cell % 0 /100 WBC (0); Platelet Count 323 Thou/mm3 (140-440); RDW Standard Deviation 49.1 fL (35.1-43.9); White Blood Count 9.3 Thou/mm3 (3.8-10.6)
[2025-04-04] MEDS: CEFEPIME INJ 1 GM in SODIUM CHLORIDE 0.9% (Popper) 50 ML IV (05:53)
[2025-04-04] MEDS: metroNIDAZOLE/NS 500 MG IVPB 500 MG/100 ML BAG 200 MG IV ×3 (05:54→21:35)
[2025-04-04 06:08] LABS: Alanine Aminotransferase 12 U/L (10-49); Albumin/Globulin Ratio 1.3 (1.2-2.2); Alkaline Phosphatase 154 U/L (46-116); Anion Gap 7 (7-16); Aspartate Amino Transferase 22 U/L (0-34); BUN/Creatinine Ratio 20 Ratio (12-20); Bilirubin,Total 0.4 mg/dL (0.3-1.2); Blood Urea Nitrogen 22 mg/dL (9-23); Calcium 8.3 mg/dL (8.3-10.6); Calcium (Corrected) 9.1 mg/dL (8.5-10.1); Carbon Dioxide 33.8 mMol/L (20.0-31.0); Chloride 94 mMol/L (98-107); Creatinine (Component) 1.1 mg/dL (0.6-1.3); Estimated Creatinine Clearance 112.3 mL/min (>60); Globulin 2.4 gm/dL (2.3-3.5); Glucose 132 mg/dL (74-106); Magnesium 1.8 mg/dL (1.6-2.6); Osmolality,Calculated 275 (275-295); Phosphorous 3.5 mg/dL (2.4-5.1); Sodium 135 mMol/L (136-145); Total Protein 5.4 gm/dL (5.7-8.2); eGFR > 60 See Note
[2025-04-04 06:20] LABS: INR 1.2 (0.9-1.3); Partial Thromboplastin Time 62.7 Seconds (22.0-36.0); Prothrombin Time 12.5 Seconds (9.0-12.2)
[2025-04-04] MEDS: Heparin/D5w 25K 250 ML Ivpb 25,000 UNIT/250 ML BAG 26.024 UNIT IV ×2 (07:21→18:45)
--- NOTE | 2025-04-04 08:23 | PC.CC ---
Addendum entered by Sebastian Dalton RN 04/04/25 19:18: 1900: call for status update made, per Deepthi at [facility], case is still under physician review. Addendum entered by Sebastian Dalton RN 04/04/25 13:51: 1350: received call from Jennifer from [facility], she informed the case is under physician review. Condition update provided at this time. Jennifer stated she will call us with any updates. Addendum entered by Sebastian Dalton RN 04/04/25 12:34: 1233: Called [facility] screw driver operator since i have not received a call back from the . I was successfully connected to Deepthi in the . She stated the case is now under MD review. Addendum entered by Sebastian Dalton RN 04/04/25 11:02: 1100: called [facility] again for a status update. unable to contact anyone at this time. Clarfication: previous phone calls made to [facility]. Addendum entered by Sebastian Dalton RN 04/04/25 10:31: called for a status update, left another message to return my call with an update. Contact information provided Original Note: called for a status update, left message to return my call with an update.
[2025-04-04] MEDS: ASCORBIC ACID 250 MG TABLET 500 MG NG ×2 (10:12→21:30)
[2025-04-04] MEDS: ZINC SULFATE 220 MG CAPSULE NG (10:12)
[2025-04-04] MEDS: AMIODARONE HCL 200 MG TABLET NG (10:12)
[2025-04-04] MEDS: LANSOPRAZOLE 30 MG TAB.RAP.DR NG (10:12)
[2025-04-04] MEDS: amLODIPine BESYLATE 5 MG TABLET 10 MG NG (10:12)
[2025-04-04] MEDS: INSULIN GLARGINE (Lantus) 5 UNIT/0.05 ML (PER 5 UNITS) 38 UNIT SC (10:12)
[2025-04-04] MEDS: BUMETANIDE 0.5 MG TABLET 2 MG PO (10:12)
[2025-04-04] MEDS: Magnesium Sulfate 2 GM Ivpb 2 GM/50 ML BAG IV (10:12)
[2025-04-04] MEDS: COLLAGENASE OINT 30 GM TUBE TOP (10:12)
[2025-04-04] MEDS: MULTIVITAMIN 15 ML UDC NG (10:12)
[2025-04-04 11:34] LABS: Partial Thromboplastin Time 55.4 Seconds (22.0-36.0)
--- NOTE | 2025-04-04 11:54 | ESPR_ITS ---
<Statement entered by Lenora John MD - 04/05/25 08:58> I personally evaluated patient examined patient is doing fairly well stable condition A-fib rate controlled well chronic respiratory failure with tracheostomy patient is awaiting placement correction facility continue oral diuretic therapy remains rate controlled for now evaluate the patient with resident physician PGY 3 agree with the treatment plan recommendation as documented Documentation for date of: 04/04/25 Subjective Subjective Interval history: Patient was examined bedside this morning, no acute overnight events. In blow by . Continue bumex . Exam Vital Signs Temp Pulse Resp BP Pulse Ox O2 Del Method O2 Flow Rate 97.6 F 93 25 H 127/92 H 94 L Blow-by 12 04/04/25 08:00 04/04/25 10:12 04/04/25 08:00 04/04/25 10:12 04/04/25 08:00 04/04/25 08:00 04/04/25 08:00 FiO2 50 04/04/25 08:00 Narrative Exam Gen: Well-developed and well-nourished morbidly obese male. NG tube in place. HEENT: NCAT, PERRLA, EOMI, MMM, anicteric conjunctivae, tracheostomy in place. CVS: Decreased heart sounds, normal S1 and S2. RRR. No M/R/G. Resp: Decreased breath sounds B/L. No rhonchi, rales, crackles or wheezing. Abd: soft, morbidly obese, non-tender, non-distended. BS+ in all 4 quadrants. Pitting edema over bilateral flanks and sides. MSK: Good ROM in BUE & BLE. 2+ pitting edema BLE. Neuro: Limited exam due to medical condition. Objective Labs 04/04/25 05:03 04/04/25 05:03 Labs: Laboratory Results - last 24 hr 04/03/25 04/03/25 04/04/25 15:02 21:30 05:03 WBC 9.3 RBC 3.60 L Hgb 10.1 L Hct 33.0 L MCV 92 MCH 28.1 MCHC 30.6 L RDW Std Deviation 49.1 H Plt Count 323 Neut % (Auto) 73 Lymph % (Auto) 11 Crook % (Auto) 12 Eos % (Auto) 3 Baso % (Auto) 0 Neut # (Auto) 6.8 Lymph # (Auto) 1.1 Crook # (Auto) 1.1 H Eos # (Auto) 0.3 Baso # (Auto) 0.0 Immature Gran # (Auto) 0.08 H Absolute Nucleated RBC 0.00 Immature Gran % 1 H Nucleated RBC % 0 PT 12.5 H INR 1.2 APTT 31.5 D 106.0 H* D 62.7 H D Sodium 135 L Potassium 4.0 Chloride 94 L Carbon Dioxide 33.8 H Anion Gap 7 BUN 22 Creatinine 1.1 Estim Creat Clear Calc 112.3 eGFR > 60 BUN/Creatinine Ratio 20 Glucose 132 H Calculated Osmolality 275 Calcium 8.3 Corrected Calcium 9.1 Phosphorus 3.5 Magnesium 1.8 Total Bilirubin 0.4 AST 22 ALT 12 Alkaline Phosphatase 154 H Total Protein 5.4 L Albumin 3.0 L Globulin 2.4 Albumin/Globulin Ratio 1.3 04/04/25 10:55 WBC RBC Hgb Hct MCV MCH MCHC RDW Std Deviation Plt Count Neut % (Auto) Lymph % (Auto) Crook % (Auto) Eos % (Auto) Baso % (Auto) Neut # (Auto) Lymph # (Auto) Crook # (Auto) Eos # (Auto) Baso # (Auto) Immature Gran # (Auto) Absolute Nucleated RBC Immature Gran % Nucleated RBC % PT INR APTT 55.4 H Sodium Potassium Chloride Carbon Dioxide Anion Gap BUN Creatinine Estim Creat Clear Calc eGFR BUN/Creatinine Ratio Glucose Calculated Osmolality Calcium Corrected Calcium Phosphorus Magnesium Total Bilirubin AST ALT Alkaline Phosphatase Total Protein Albumin Globulin Albumin/Globulin Ratio ABG Interpretation ABG results: 02/27/25 02/28/25 03/01/25 06:55 04:57 04:39 ABG pH 7.27 L 7.37 D 7.41 ABG pCO2 57 H 48 44 ABG pO2 101 78 L D 69 L ABG HCO3 26 28 H 28 H ABG O2 Saturation 98 95 93 ABG Base Excess -2 2 3 VBG pH VBG pCO2 VBG pO2 VBG Base Excess 03/01/25 03/01/25 03/02/25 13:15 14:52 04:25 ABG pH Cancelled 7.41 7.45 ABG pCO2 Cancelled 45 42 ABG pO2 Cancelled 53 L* 66 L ABG HCO3 Cancelled 28 H 29 H ABG O2 Saturation Cancelled 85 L 92 ABG Base Excess Cancelled 3 5 H VBG pH VBG pCO2 VBG pO2 VBG Base Excess 03/03/25 03/05/25 03/05/25 04:40 16:30 16:55 ABG pH 7.45 Cancelled 7.34 L D ABG pCO2 43 Cancelled 72 H* D ABG pO2 72 L Cancelled 83 ABG HCO3 30 H Cancelled 38 H ABG O2 Saturation 94 Cancelled 95 ABG Base Excess 5 H Cancelled 9 H VBG pH VBG pCO2 VBG pO2 VBG Base Excess 03/05/25 03/06/25 03/06/25 23:36 01:48 05:22 ABG pH 7.37 7.34 L 7.52 H D ABG pCO2 67 H 74 H* 47 D ABG pO2 150 H D 88 D 160 H D ABG HCO3 38 H 40 H 38 H ABG O2 Saturation 99 H 96 100 H ABG Base Excess 10 H 11 H 13 H VBG pH VBG pCO2 VBG pO2 VBG Base Excess 03/06/25 03/07/25 03/07/25 17:10 05:00 14:03 ABG pH 7.46 H ABG pCO2 53 H ABG pO2 65 L D ABG HCO3 38 H ABG O2 Saturation 93 ABG Base Excess 12 H VBG pH 7.50 7.52 VBG pCO2 50 47 VBG pO2 70 H 61 H VBG Base Excess 13 H 14 H 03/09/25 03/09/25 03/09/25 08:17 10:25 17:29 ABG pH 7.25 L D 7.29 L 7.29 L ABG pCO2 93 H* D 85 H* 88 H* ABG pO2 81 L 57 L* D 85 D ABG HCO3 41 H 40 H 43 H ABG O2 Saturation 95 89 L 97 ABG Base Excess 10 H 10 H 12 H VBG pH VBG pCO2 VBG pO2 VBG Base Excess 03/09/25 03/10/25 03/10/25 23:24 07:17 11:25 ABG pH 7.32 L 7.28 L 7.31 L ABG pCO2 78 H* D 90 H* D 81 H* ABG pO2 69 L 47 L* D 63 L ABG HCO3 40 H 43 H 41 H ABG O2 Saturation 94 80 L 93 ABG Base Excess 11 H 12 H 11 H VBG pH VBG pCO2 VBG pO2 VBG Base Excess 03/10/25 03/11/25 03/12/25 16:56 04:19 04:42 ABG pH 7.40 7.48 H 7.43 ABG pCO2 66 H D 54 H D 59 H ABG pO2 68 L 67 L 77 L ABG HCO3 41 H 40 H 39 H ABG O2 Saturation 94 94 96 ABG Base Excess 13 H 15 H 12 H VBG pH VBG pCO2 VBG pO2 VBG Base Excess 03/13/25 03/14/25 03/15/25 04:32 04:25 04:37 ABG pH 7.47 H 7.46 H 7.41 ABG pCO2 53 H 50 H 56 H ABG pO2 60 L 70 L 69 L ABG HCO3 38 H 36 H 35 H ABG O2 Saturation 93 95 95 ABG Base Excess 13 H 10 H 9 H VBG pH VBG pCO2 VBG pO2 VBG Base Excess 03/16/25 03/16/25 03/17/25 04:54 09:53 04:35 ABG pH 7.45 7.48 H 7.47 H ABG pCO2 51 H 49 H 53 H ABG pO2 68 L 34 L* D 87 D ABG HCO3 35 H 37 H 38 H ABG O2 Saturation 95 67 L 97 ABG Base Excess 10 H 12 H 13 H VBG pH VBG pCO2 VBG pO2 VBG Base Excess 03/18/25 03/19/25 03/26/25 04:26 05:00 08:20 ABG pH 7.44 7.45 7.46 H ABG pCO2 57 H 55 H 54 H ABG pO2 107 D 73 L D 79 L ABG HCO3 38 H 38 H 38 H ABG O2 Saturation 99 H 96 97 ABG Base Excess 12 H 12 H 12 H VBG pH VBG pCO2 VBG pO2 VBG Base Excess Quality Measures Quality Measures sepsis Current suspected stage: sepsis Possible source: pulmonary Blood cultures ordered: completed in ED Antibiotic ordered: Yes Advance care planning discussed with:: patient Assessment & Plan Assessment Current Active Medications: Generic Name Dose Route Start Last Admin Trade Name Freq PRN Reason Stop Dose Admin Amiodarone HCl 200 mg 04/03/25 09:00 04/04/25 10:12 Amiodarone Hcl 200 Mg Tablet NG 05/03/25 08:59 200 mg QDAY KOURTNEY Administration Amlodipine Besylate 10 mg 05/18/25 07:30 04/04/25 10:12 Amlodipine Besylate 5 Mg Tablet NG 04/19/25 07:29 10 mg DAILY KOURTNEY Administration Ascorbic Acid 500 mg 03/27/25 12:00 04/04/25 10:12 Ascorbic Acid 250 Mg Tablet NG 04/26/25 11:59 500 mg BID KOURTNEY Administration Bumetanide 2 mg 04/02/25 09:00 04/04/25 10:12 Bumetanide 0.5 Mg Tablet PO 05/02/25 08:59 2 mg QDAY [facility] Administration Collagenase 0 gm 04/01/25 11:30 04/04/25 10:12 Collagenase Oint 30 Gm Tube TOP 05/01/25 11:29 1 applicatio DAILY [facility] Administration Cyclobenzaprine HCl 5 mg 03/26/25 08:25 04/03/25 12:18 Cyclobenzaprine 5 Mg Tablet PO 04/25/25 08:24 5 mg TID PRN Administration MUSCLE SPASMS Protocol Heparin Sodium/Dextrose 25,000 unit in 250 mls @ 18 mls/hr 04/01/25 16:45 04/04/25 07:21 Heparin In D5w Ivpb IV 04/15/25 16:44 12.96 units/kg/hr .[id number] KOURTNEY 26.024 mls/hr Administration Protocol 8.964 UNITS/KG/HR Metronidazole 500 mg in 100 mls @ 200 mls/hr 04/02/25 15:51 04/04/25 05:54 Flagyl 500 Mg Iv IV 04/09/25 15:50 200 mls/hr Q8HR [facility] Administration Cefepime HCl 2 gm/ Sodium 50 mls @ 100 mls/hr 04/04/25 14:00 Chloride IV 04/11/25 13:59 Q8HR [facility] Insulin Glargine 38 unit 03/30/25 09:00 04/04/25 10:12 Insulin Glargine (Lantus) 5 Unit/0.05 Ml (Per 5 Units) SC 04/29/25 08:59 38 unit QDAY [facility] Administration Insulin Human Lispro 0 unit 03/25/25 12:00 04/04/25 06:00 Insulin Lispro (Admelog) 1 Unit/0.01 Ml Unit SC 04/24/25 11:59 Not Given Q6HR KOURTNEY Protocol Lansoprazole 30 mg 03/23/25 09:30 04/04/25 10:12 Lansoprazole 30 Mg Tab.Joshua.Dr CHAPIN 04/21/25 08:59 30 mg QDAY KOURTNEY Administration Multivitamins/Minerals 15 ml 03/27/25 12:00 04/04/25 10:12 Multivitamin 15 Ml Udc NG 04/26/25 11:59 15 ml QDAY KOURTNEY Administration Ondansetron HCl 4 mg 03/05/25 20:46 03/09/25 03:49 Ondansetron Inj 2 Mg/Ml Inj 2 Ml IV 04/04/25 20:45 4 mg Q6HR PRN Administration NAUSEA OR VOMITING Protocol Zinc Sulfate 220 mg 03/27/25 12:00 04/04/25 10:12 Zinc Sulfate 220 Mg Capsule NG 04/10/25 11:59 220 mg QDAY KOURTNEY Administration Plan 64-year-old male with significant past medical history of hypertension, diabetes mellitus, A-fib was admitted to the ICU on 02/27/2025 after coming in with altered mental status and shortness of breath, intubated for acute hypoxic respiratory failure and had suspected obesity hypoventilation syndrome/obstructive sleep apnea/pneumonia and acute kidney injury. He was extubated on 03/03 and downgraded then re-intubated on 03/06 due to confusion and tachypneia. He was then extubated and downgraded to the floor on 03/07. On 03/10, patient again had decreased mentation on the BiPAP so was reintubated and upgraded. Cardiology has been consulted for suspected heart failure. #Right congestive heart failure with preserved EF. #Severe BASIA/OHS. Echo on this admission showed poor quality images secondary to the patient's body habitus so was a technically limited study. Suspect chronic right heart failure in the setting of chronic obesity hypoventilation syndrome and obstructive sleep apnea. Currently appears to be more pulmonary component to respiratory failure than cardiac. Requiring ventilation support. -Echo 02/27/25: IVC appears to be dilated and also estimated RVSP also appears to be at least moderately elevated at 55 mmHg. 03/14/25: Will hold dirutics for now , he was given IV fluids yesterday. 03/15/25 : [place] catheter was placed by ICU team which showed PA pressure of more than 30s and wedge pressure was also high . started him on bumex drip . will continue the albumin . he is getting his peg tube today 03/16/25: ICU team tried another [place] catheter today which showed RA pressure of 25, PA pressure of 38, PCWP of 23. Plan is to continue Bumex for him. Cr stable at 2.5 03/17/2025: Net fluid balance -3350 cc. ICU team held Bumex due to significant electrolyte abnormalities, potassium 2.7. Once repleted Bumex drip will be resumed. Continue current management and monitor patient. 03/18/2025: net fluid balance -1650 , he received 1 dose of diamox yesterday. will continue to diures, he is off ventillor in blowby with PRN ventillator when he gets tired. 03/19/2025: no acute overnight event.Balance of -950 . ICU team put a swan catheter which showed he is adequately diressed for now, so bumex on hold for now. pending pegtube placement, its been difficult to do the procedure consedering his Rouxy history. Plan: 03/20/2025: Will hold dirutics for now, he was given IV LR and FWF via NG for hypernatremia. 03/21/2025: no acute overnight event. free water flushes increase today for hypernatremia . Xarelto resumed . bumex on hold ,Dr Doty recommending jejunostomy placement. 03/22/2025:Patient has tracheostomy inplace and is unable to communicate much Telemetry reviewed and rest of the vital signs including the heart rate appears to be stable. Labs showed that the patient still continues to have hyponatremia at 150 and also has elevated creatinine at 2.6 and a BUN of 66. Patient is on renal water flushes for the hyponatremia and creatinine continues to improve and baseline creatinine appears to be around 2.0 Recommend to continue with free water flushes for now. Patient is morbidly obese with multiple comorbidities as mentioned below and overall prognosis appears to be poor Primary team to discuss with the family regarding goals of care. 03/23/2025:Continued on free water flushes, sodium 150 > 149. Renal function showing minor improvement with BUN 63, CR 2.4, EGFR 29. Poor urine output. 2/3+ LE edema noted on exam again. Vitals relatively normal, BP 121/92, HR 98 although spikes of HR 120s noted on tele, continued on blow-by and satting well.? Continue with free-water flushes, monitor renal function closely,Continue AMIODARONE 200 mg daily, Continue AMLODIPINE 10 mg daily,Continue XARELTO 20 mg, Okay holding BUMEX 2 mg IV BID as per nephro team, may need HD eventually if renally function not improving, kadi givens persisting edema. 03/25/2025: no acute overnight event, he was given diamox by nephrology speech therapist was at bedside , kidney function improving . Na is normal today at 143 . Bumex still on hold. .Continue amiodarone 200 mg daily, Amlodipine 10 mg daily, Continue XARELTO 20 mg 03/26/2025: no acute overnight event , primary team reffered him to hospice pending decision . Bumex still on hold. .Continue amiodarone 200 mg daily, Amlodipine 10 mg daily, Continue XARELTO 20 mg 03/27/2025: no acute overnight event . Bumex still on hold. .Continue amiodarone 200 mg daily, Amlodipine 10 mg daily, Continue XARELTO 20 mg, his na is 147 . pending disposition as pt patients need more time to decide. 03/28/2025: no acute overnight event . Bumex still on hold. .Continue amiodarone 200 mg daily, Amlodipine 10 mg daily, Continue XARELTO 20 mg, his na is 147 . pending disposition . 03/29/2025: no acute overnight event . Bumex still on hold. .Continue amiodarone 200 mg daily, Amlodipine 10 mg daily, Continue XARELTO 20 mg, his na is 147 . pending disposition He is pending transfer for IR or surgical jejunostomy or PEG placement due to history of Diego-en-Y. 04/01/25: patient might benefit from Bumex, his sodium is 137 and edema is still pretty significant. Resume Bumex 2 mg PO daily. Pending placement. 04/02/25: Continue Bumex 2 mg daily. Sodium today 135. Vitals are stable. 04/03/2025: no acute overnight event. He is back on ventilator. He was on blow- by for a brief amount of time in the morning.Continue Bumex 2mg Q day. he is having good urine output. 04/04/2025: no acute overnight events. In blow by . Continue bumex, having good urine output. #Atrial fibrillation, rate controlled. Patient notes positive history of afib. He had previously been on metoprolol succinate 100 mg BID. Currently appears rate-controlled in the 100s. CHADS-VASc score 4. Plan: -continue Xarelto. -Continue amiodarone 200 mg qday. -Keep potassium >4.0 and mag >2.0. Rest of conditions to continue current management per primary team: #Acute hypoxic respiratory failure s/p tracheostomy. #Morbid obesity. #Community acquired pneumonia. #Elevated LFTs, resolved. #Hyperbilirubinemia, resolved. #History of type 2 diabetes. #Lactic acidosis, resolved. #KENIA on CKD. #Hypernatremia. Discussed the patient with my attending Dr John. Shaina Newell MD,PGY-3
--- NOTE | 2025-04-04 13:54 | ESPR_ITS ---
Documentation for date of: 04/04/25 Subjective Subjective Interval history: No acute events overnight, vital signs stable, patient afebrile in the AM. Exam Vital Signs Temp Pulse Resp BP Pulse Ox O2 Del Method O2 Flow Rate 97.2 F 107 H 28 H 136/91 H 96 Blow-by 12 04/04/25 12:00 04/04/25 12:00 04/04/25 12:00 04/04/25 12:00 04/04/25 12:00 04/04/25 12:00 04/04/25 12:00 FiO2 50 04/04/25 12:00 Narrative Exam GENERAL APPEARANCE: NAD HEENT: NCAT, tracheostomy in place NECK: Supple CARDIOVASULAR: NSR LUNGS/CHEST: Ventilated breath sounds ABDOMEN: Large pannus, soft nontender NEURO: Alert, awake and oriented x3 Objective Labs 04/04/25 05:03 04/04/25 05:03 Labs: Laboratory Results - last 24 hr 04/03/25 04/03/25 04/04/25 15:02 21:30 05:03 WBC 9.3 RBC 3.60 L Hgb 10.1 L Hct 33.0 L MCV 92 MCH 28.1 MCHC 30.6 L RDW Std Deviation 49.1 H Plt Count 323 Neut % (Auto) 73 Lymph % (Auto) 11 [place] % (Auto) 12 Eos % (Auto) 3 Baso % (Auto) 0 Neut # (Auto) 6.8 Lymph # (Auto) 1.1 [place] # (Auto) 1.1 H Eos # (Auto) 0.3 Baso # (Auto) 0.0 Immature Gran # (Auto) 0.08 H Absolute Nucleated RBC 0.00 Immature Gran % 1 H Nucleated RBC % 0 PT 12.5 H INR 1.2 APTT 31.5 D 106.0 H* D 62.7 H D Sodium 135 L Potassium 4.0 Chloride 94 L Carbon Dioxide 33.8 H Anion Gap 7 BUN 22 Creatinine 1.1 Estim Creat Clear Calc 112.3 eGFR > 60 BUN/Creatinine Ratio 20 Glucose 132 H Calculated Osmolality 275 Calcium 8.3 Corrected Calcium 9.1 Phosphorus 3.5 Magnesium 1.8 Total Bilirubin 0.4 AST 22 ALT 12 Alkaline Phosphatase 154 H Total Protein 5.4 L Albumin 3.0 L Globulin 2.4 Albumin/Globulin Ratio 1.3 04/04/25 10:55 WBC RBC Hgb Hct MCV MCH MCHC RDW Std Deviation Plt Count Neut % (Auto) Lymph % (Auto) [place] % (Auto) Eos % (Auto) Baso % (Auto) Neut # (Auto) Lymph # (Auto) [place] # (Auto) Eos # (Auto) Baso # (Auto) Immature Gran # (Auto) Absolute Nucleated RBC Immature Gran % Nucleated RBC % PT INR APTT 55.4 H Sodium Potassium Chloride Carbon Dioxide Anion Gap BUN Creatinine Estim Creat Clear Calc eGFR BUN/Creatinine Ratio Glucose Calculated Osmolality Calcium Corrected Calcium Phosphorus Magnesium Total Bilirubin AST ALT Alkaline Phosphatase Total Protein Albumin Globulin Albumin/Globulin Ratio ABG Interpretation ABG results: 02/27/25 02/28/25 03/01/25 06:55 04:57 04:39 ABG pH 7.27 L 7.37 D 7.41 ABG pCO2 57 H 48 44 ABG pO2 101 78 L D 69 L ABG HCO3 26 28 H 28 H ABG O2 Saturation 98 95 93 ABG Base Excess -2 2 3 VBG pH VBG pCO2 VBG pO2 VBG Base Excess 03/01/25 03/01/25 03/02/25 13:15 14:52 04:25 ABG pH Cancelled 7.41 7.45 ABG pCO2 Cancelled 45 42 ABG pO2 Cancelled 53 L* 66 L ABG HCO3 Cancelled 28 H 29 H ABG O2 Saturation Cancelled 85 L 92 ABG Base Excess Cancelled 3 5 H VBG pH VBG pCO2 VBG pO2 VBG Base Excess 03/03/25 03/05/25 03/05/25 04:40 16:30 16:55 ABG pH 7.45 Cancelled 7.34 L D ABG pCO2 43 Cancelled 72 H* D ABG pO2 72 L Cancelled 83 ABG HCO3 30 H Cancelled 38 H ABG O2 Saturation 94 Cancelled 95 ABG Base Excess 5 H Cancelled 9 H VBG pH VBG pCO2 VBG pO2 VBG Base Excess 03/05/25 03/06/25 03/06/25 23:36 01:48 05:22 ABG pH 7.37 7.34 L 7.52 H D ABG pCO2 67 H 74 H* 47 D ABG pO2 150 H D 88 D 160 H D ABG HCO3 38 H 40 H 38 H ABG O2 Saturation 99 H 96 100 H ABG Base Excess 10 H 11 H 13 H VBG pH VBG pCO2 VBG pO2 VBG Base Excess 03/06/25 03/07/25 03/07/25 17:10 05:00 14:03 ABG pH 7.46 H ABG pCO2 53 H ABG pO2 65 L D ABG HCO3 38 H ABG O2 Saturation 93 ABG Base Excess 12 H VBG pH 7.50 7.52 VBG pCO2 50 47 VBG pO2 70 H 61 H VBG Base Excess 13 H 14 H 03/09/25 03/09/25 03/09/25 08:17 10:25 17:29 ABG pH 7.25 L D 7.29 L 7.29 L ABG pCO2 93 H* D 85 H* 88 H* ABG pO2 81 L 57 L* D 85 D ABG HCO3 41 H 40 H 43 H ABG O2 Saturation 95 89 L 97 ABG Base Excess 10 H 10 H 12 H VBG pH VBG pCO2 VBG pO2 VBG Base Excess 03/09/25 03/10/25 03/10/25 23:24 07:17 11:25 ABG pH 7.32 L 7.28 L 7.31 L ABG pCO2 78 H* D 90 H* D 81 H* ABG pO2 69 L 47 L* D 63 L ABG HCO3 40 H 43 H 41 H ABG O2 Saturation 94 80 L 93 ABG Base Excess 11 H 12 H 11 H VBG pH VBG pCO2 VBG pO2 VBG Base Excess 03/10/25 03/11/25 03/12/25 16:56 04:19 04:42 ABG pH 7.40 7.48 H 7.43 ABG pCO2 66 H D 54 H D 59 H ABG pO2 68 L 67 L 77 L ABG HCO3 41 H 40 H 39 H ABG O2 Saturation 94 94 96 ABG Base Excess 13 H 15 H 12 H VBG pH VBG pCO2 VBG pO2 VBG Base Excess 03/13/25 03/14/25 03/15/25 04:32 04:25 04:37 ABG pH 7.47 H 7.46 H 7.41 ABG pCO2 53 H 50 H 56 H ABG pO2 60 L 70 L 69 L ABG HCO3 38 H 36 H 35 H ABG O2 Saturation 93 95 95 ABG Base Excess 13 H 10 H 9 H VBG pH VBG pCO2 VBG pO2 VBG Base Excess 03/16/25 03/16/25 03/17/25 04:54 09:53 04:35 ABG pH 7.45 7.48 H 7.47 H ABG pCO2 51 H 49 H 53 H ABG pO2 68 L 34 L* D 87 D ABG HCO3 35 H 37 H 38 H ABG O2 Saturation 95 67 L 97 ABG Base Excess 10 H 12 H 13 H VBG pH VBG pCO2 VBG pO2 VBG Base Excess 03/18/25 03/19/25 03/26/25 04:26 05:00 08:20 ABG pH 7.44 7.45 7.46 H ABG pCO2 57 H 55 H 54 H ABG pO2 107 D 73 L D 79 L ABG HCO3 38 H 38 H 38 H ABG O2 Saturation 99 H 96 97 ABG Base Excess 12 H 12 H 12 H VBG pH VBG pCO2 VBG pO2 VBG Base Excess Quality Measures Quality Measures VTE therapy and sepsis Current suspected stage: ruled out Possible source: pulmonary Blood cultures ordered: completed in ED Antibiotic ordered: Yes Advance care planning discussed with:: patient Assessment & Plan Assessment Current Active Medications: Generic Name Dose Route Start Last Admin Trade Name Freq PRN Reason Stop Dose Admin Amiodarone HCl 200 mg 04/03/25 09:00 04/04/25 10:12 Amiodarone Hcl 200 Mg Tablet NG 05/03/25 08:59 200 mg QDAY KOURTNEY Administration Amlodipine Besylate 10 mg 03/31/25 07:30 04/04/25 10:12 Amlodipine Besylate 5 Mg Tablet NG 04/19/25 07:29 10 mg DAILY KOURTNEY Administration Ascorbic Acid 500 mg 03/27/25 12:00 04/04/25 10:12 Ascorbic Acid 250 Mg Tablet NG 04/26/25 11:59 500 mg BID KOURTNEY Administration Bumetanide 2 mg 04/02/25 09:00 04/04/25 10:12 Bumetanide 0.5 Mg Tablet PO 05/02/25 08:59 2 mg QDAY KOURTNEY Administration Collagenase 0 gm 04/01/25 11:30 04/04/25 10:12 Collagenase Oint 30 Gm Tube TOP 05/01/25 11:29 1 applicatio DAILY KOURTNEY Administration Cyclobenzaprine HCl 5 mg 03/26/25 08:25 04/03/25 12:18 Cyclobenzaprine 5 Mg Tablet PO 04/25/25 08:24 5 mg TID PRN Administration MUSCLE SPASMS Protocol Heparin Sodium/Dextrose 25,000 unit in 250 mls @ 18 mls/hr 04/01/25 16:45 04/04/25 11:00 Heparin In D5w Ivpb IV 04/15/25 16:44 12.96 units/kg/hr .[id number] KOURTNEY 26.024 mls/hr Titration Protocol 8.964 UNITS/KG/HR Metronidazole 500 mg in 100 mls @ 200 mls/hr 04/02/25 15:51 04/04/25 05:54 Flagyl 500 Mg Iv IV 04/09/25 15:50 200 mls/hr Q8HR KOURTNEY Administration Cefepime HCl 2 gm/ Sodium 50 mls @ 100 mls/hr 04/04/25 14:00 Chloride IV 04/11/25 13:59 Q8HR KOURTNEY Insulin Glargine 38 unit 03/30/25 09:00 04/04/25 10:12 Insulin Glargine (Lantus) 5 Unit/0.05 Ml (Per 5 Units) SC 04/29/25 08:59 38 unit QDAY [facility] Administration Insulin Human Lispro 0 unit 03/25/25 12:00 04/04/25 06:00 Insulin Lispro (Admelog) 1 Unit/0.01 Ml Unit SC 04/24/25 11:59 Not Given Q6HR KOURTNEY Protocol Lansoprazole 30 mg 03/23/25 09:30 04/04/25 10:12 Lansoprazole 30 Mg Tab.Rap.Dr CHAPIN 04/21/25 08:59 30 mg QDAY KOURTNEY Administration Multivitamins/Minerals 15 ml 03/27/25 12:00 04/04/25 10:12 Multivitamin 15 Ml Udc NG 04/26/25 11:59 15 ml QDAY KOURTNEY Administration Ondansetron HCl 4 mg 03/05/25 20:46 03/09/25 03:49 Ondansetron Inj 2 Mg/Ml Inj 2 Ml IV 04/04/25 20:45 4 mg Q6HR PRN Administration NAUSEA OR VOMITING Protocol Zinc Sulfate 220 mg 03/27/25 12:00 04/04/25 10:12 Zinc Sulfate 220 Mg Capsule NG 04/10/25 11:59 220 mg QDAY KOURTNEY Administration Plan 64-year-old male with past medical history of DM2, hypertension, A-fib, and Jehova's witness was admitted to the ICU on 02/27/2025 for shock and acute hypoxic respiratory failure. Initiating transfer for higher level of care at this time for Jejunostomy. #Right internal jugular venous thrombosis Venous duplex was Positive for occulsive thrombus in RIJ Plan: ? Heparin Drip per protocol ? Continuing to hold Xarleto #Acute on Chronic Hypoxic Hypercapnic Respiratory Failure #Aspiration Pneumonia #Obesity hypoventilation syndrome and obstructive sleep apnea #Dysphagia #Tracheostomy Pt was unable to have PEG placed by GI General Surgery recommends bariatric surgery to put in PEG GI recommending IR Jeujunostomy at higher level of care IR refuses to reattempt PICC line Transfer Nurse is currently working with [facility] [[email or web address]] who is reviewing the case Plan: ? Pending Transfer to higher level of care for jejunostomy with GI ? 2 Sánchez feedings with 220 cc/2hr water flushes ? IR PICC Line, will hold heparin before procedure ? Multivitamin ? Cefepime IV 2 g every 8 hours and Flagyl 500 mg every 8 hours IV ? Blow-By as tolerated #Right diastolic CHF, improved [place] Mary 03/19/2025: RAP 8, PAP 27, PCWP 7 Due to patient having congestion, will continue with diuresis Sodium 137 today Pt is getting additional fluids from other medicines and abx, will decrease water flushes due to concern for overload Plan: ? Cardiology consulted, appreciate recs ? Decrease water flushes to 220 mL per 2 hours ? Continue strict daily body weight ? Continue Bumex 2 g daily ? Daily weights ? Strict I&O #Hx of A-fib [id number] score of 3 points indicating 3.2% risk of stroke per year HAS-BLED: 0 Plan: ? Heparin drip ? Amio 200 mg QDAY NG ? Potassium and magnesium above 4 and 2 respectively ? Telemetry #Decubitus ulcer Ulcer appears to be have foul odor and is necrotic Patient will likely have worsening of this ulcer, it is not great for yet at this point however due to patient's immobility we can anticipate this will worsen General Surgery recommends conservative and medical management at this time Plan: ? Monitor for signs of infection ? Wound care ? Wound care vitamins including zinc, multivitamin and vitamin C #Morbid obesity #DM2 A1C 7.6 on 03/05/2025 Patient has a BMI of 79.5 Plan: ? ISS scale 2 ? Hypoglycemia protocol ordered ? 38 units of Lantus #Normocytic Anemia Likely secondary to anemia of chronic disease given normal MCV. No acute intervention, continue to monitor #Community-acquired pneumonia, Enterobacter [place] #Leukocytosis, resolved #Enterobacter cloacoe pneumonia, resolved. #Acute encephalopathy, resolved #KENIA resolved #Hypokalemia resolved #Hypernatremia resolved #Metabolic alkalosis resolved #Health Maintenance Disposition: Pending transfer to tertiary center for higher level of care DVT prophylaxis: Heparin Drip GI prophylaxis: Protonix Diet: NG tube feeds with 2Cal with 220 cc every 2 hours for water flushes CODE STATUS: Full Attending Provider Attestation/Addendum I have discussed and was present for the essential components of the history, physical examination, diagnosis, and treatment plan with the resident. I agree with the patient's care as documented by the resident and amended herein by me. Arnol Turcios DO. Although this document has been carefully reviewed, there may still be some phonetic and other typographical errors. These errors are purely grammatical due to imperfections in the software program and should not be construed in any way to compromise the substance of the patient's medical care during this visit.
[2025-04-04] MEDS: ONDANSETRON INJ 2 MG/ML INJ 2 ML 4 MG IV (14:57)
[2025-04-04] MEDS: CEFEPIME INJ 2 GM in SODIUM CHLORIDE 0.9% (Popper) 50 ML IV ×2 (14:58→21:30)
[2025-04-04 17:49] LABS: Partial Thromboplastin Time 26.5 Seconds (22.0-36.0)
[2025-04-04] MEDS: INSULIN LISPRO (AdmeLOG) 1 UNIT/0.01 ML UNIT SC (18:02)
[2025-04-04 19:51] LABS: Partial Thromboplastin Time 25.9 Seconds (22.0-36.0)
[2025-04-04] MEDS: HEPARIN SOD INJ 5000 UNIT/ML VIAL 8000 UNIT IVP (21:28)
--- NOTE | 2025-04-04 21:56 | PD.IMPROG ---
Documentation for date of: 04/04/25 Subjective Subjective Interval history: transfer center team, working with pain [facility] to accept the patient there right IJ thrombosis interventional radiology refused to put a PICC line Exam Vital Signs Temp Pulse Resp BP Pulse Ox O2 Del Method O2 Flow Rate 97.1 F 81 18 119/75 92 L Blow-by 12 04/04/25 20:00 04/04/25 20:00 04/04/25 20:00 04/04/25 20:00 04/04/25 20:00 04/04/25 20:00 04/04/25 20:00 FiO2 50 04/04/25 20:00 Objective Labs 04/04/25 05:03 04/04/25 05:03 Labs: Laboratory Results - last 24 hr 04/03/25 04/04/25 04/04/25 21:30 05:03 10:55 WBC 9.3 RBC 3.60 L Hgb 10.1 L Hct 33.0 L MCV 92 MCH 28.1 MCHC 30.6 L RDW Std Deviation 49.1 H Plt Count 323 Neut % (Auto) 73 Lymph % (Auto) 11 [place] % (Auto) 12 Eos % (Auto) 3 Baso % (Auto) 0 Neut # (Auto) 6.8 Lymph # (Auto) 1.1 [place] # (Auto) 1.1 H Eos # (Auto) 0.3 Baso # (Auto) 0.0 Immature Gran # (Auto) 0.08 H Absolute Nucleated RBC 0.00 Immature Gran % 1 H Nucleated RBC % 0 PT 12.5 H INR 1.2 APTT 106.0 H* D 62.7 H D 55.4 H Sodium 135 L Potassium 4.0 Chloride 94 L Carbon Dioxide 33.8 H Anion Gap 7 BUN 22 Creatinine 1.1 Estim Creat Clear Calc 112.3 eGFR > 60 BUN/Creatinine Ratio 20 Glucose 132 H Calculated Osmolality 275 Calcium 8.3 Corrected Calcium 9.1 Phosphorus 3.5 Magnesium 1.8 Total Bilirubin 0.4 AST 22 ALT 12 Alkaline Phosphatase 154 H Total Protein 5.4 L Albumin 3.0 L Globulin 2.4 Albumin/Globulin Ratio 1.3 04/04/25 04/04/25 17:28 19:09 WBC RBC Hgb Hct MCV MCH MCHC RDW Std Deviation Plt Count Neut % (Auto) Lymph % (Auto) [place] % (Auto) Eos % (Auto) Baso % (Auto) Neut # (Auto) Lymph # (Auto) [place] # (Auto) Eos # (Auto) Baso # (Auto) Immature Gran # (Auto) Absolute Nucleated RBC Immature Gran % Nucleated RBC % PT INR APTT 26.5 D 25.9 Sodium Potassium Chloride Carbon Dioxide Anion Gap BUN Creatinine Estim Creat Clear Calc eGFR BUN/Creatinine Ratio Glucose Calculated Osmolality Calcium Corrected Calcium Phosphorus Magnesium Total Bilirubin AST ALT Alkaline Phosphatase Total Protein Albumin Globulin Albumin/Globulin Ratio Impressions Impression: Failure to thrive working with case management, ABG Interpretation ABG results: 02/27/25 02/28/25 03/01/25 06:55 04:57 04:39 ABG pH 7.27 L 7.37 D 7.41 ABG pCO2 57 H 48 44 ABG pO2 101 78 L D 69 L ABG HCO3 26 28 H 28 H ABG O2 Saturation 98 95 93 ABG Base Excess -2 2 3 VBG pH VBG pCO2 VBG pO2 VBG Base Excess 03/01/25 03/01/25 03/02/25 13:15 14:52 04:25 ABG pH Cancelled 7.41 7.45 ABG pCO2 Cancelled 45 42 ABG pO2 Cancelled 53 L* 66 L ABG HCO3 Cancelled 28 H 29 H ABG O2 Saturation Cancelled 85 L 92 ABG Base Excess Cancelled 3 5 H VBG pH VBG pCO2 VBG pO2 VBG Base Excess 03/03/25 03/05/25 03/05/25 04:40 16:30 16:55 ABG pH 7.45 Cancelled 7.34 L D ABG pCO2 43 Cancelled 72 H* D ABG pO2 72 L Cancelled 83 ABG HCO3 30 H Cancelled 38 H ABG O2 Saturation 94 Cancelled 95 ABG Base Excess 5 H Cancelled 9 H VBG pH VBG pCO2 VBG pO2 VBG Base Excess 03/05/25 03/06/25 03/06/25 23:36 01:48 05:22 ABG pH 7.37 7.34 L 7.52 H D ABG pCO2 67 H 74 H* 47 D ABG pO2 150 H D 88 D 160 H D ABG HCO3 38 H 40 H 38 H ABG O2 Saturation 99 H 96 100 H ABG Base Excess 10 H 11 H 13 H VBG pH VBG pCO2 VBG pO2 VBG Base Excess 03/06/25 03/07/25 03/07/25 17:10 05:00 14:03 ABG pH 7.46 H ABG pCO2 53 H ABG pO2 65 L D ABG HCO3 38 H ABG O2 Saturation 93 ABG Base Excess 12 H VBG pH 7.50 7.52 VBG pCO2 50 47 VBG pO2 70 H 61 H VBG Base Excess 13 H 14 H 03/09/25 03/09/25 03/09/25 08:17 10:25 17:29 ABG pH 7.25 L D 7.29 L 7.29 L ABG pCO2 93 H* D 85 H* 88 H* ABG pO2 81 L 57 L* D 85 D ABG HCO3 41 H 40 H 43 H ABG O2 Saturation 95 89 L 97 ABG Base Excess 10 H 10 H 12 H VBG pH VBG pCO2 VBG pO2 VBG Base Excess 03/09/25 03/10/25 03/10/25 23:24 07:17 11:25 ABG pH 7.32 L 7.28 L 7.31 L ABG pCO2 78 H* D 90 H* D 81 H* ABG pO2 69 L 47 L* D 63 L ABG HCO3 40 H 43 H 41 H ABG O2 Saturation 94 80 L 93 ABG Base Excess 11 H 12 H 11 H VBG pH VBG pCO2 VBG pO2 VBG Base Excess 03/10/25 03/11/25 03/12/25 16:56 04:19 04:42 ABG pH 7.40 7.48 H 7.43 ABG pCO2 66 H D 54 H D 59 H ABG pO2 68 L 67 L 77 L ABG HCO3 41 H 40 H 39 H ABG O2 Saturation 94 94 96 ABG Base Excess 13 H 15 H 12 H VBG pH VBG pCO2 VBG pO2 VBG Base Excess 03/13/25 03/14/25 03/15/25 04:32 04:25 04:37 ABG pH 7.47 H 7.46 H 7.41 ABG pCO2 53 H 50 H 56 H ABG pO2 60 L 70 L 69 L ABG HCO3 38 H 36 H 35 H ABG O2 Saturation 93 95 95 ABG Base Excess 13 H 10 H 9 H VBG pH VBG pCO2 VBG pO2 VBG Base Excess 03/16/25 03/16/25 03/17/25 04:54 09:53 04:35 ABG pH 7.45 7.48 H 7.47 H ABG pCO2 51 H 49 H 53 H ABG pO2 68 L 34 L* D 87 D ABG HCO3 35 H 37 H 38 H ABG O2 Saturation 95 67 L 97 ABG Base Excess 10 H 12 H 13 H VBG pH VBG pCO2 VBG pO2 VBG Base Excess 03/18/25 03/19/25 03/26/25 04:26 05:00 08:20 ABG pH 7.44 7.45 7.46 H ABG pCO2 57 H 55 H 54 H ABG pO2 107 D 73 L D 79 L ABG HCO3 38 H 38 H 38 H ABG O2 Saturation 99 H 96 97 ABG Base Excess 12 H 12 H 12 H VBG pH VBG pCO2 VBG pO2 VBG Base Excess Assessment & Plan A&P Narrative 64-year-old male with significant past medical history of hypertension, diabetes mellitus, A-fib was admitted to the ICU on 02/27/2025 after coming in with altered mental status and shortness of breath, intubated for acute hypoxic respiratory failure and had suspected obesity hypoventilation syndrome/obstructive sleep apnea/pneumonia and acute kidney injury. He was extubated on 03/03 and downgraded then re-intubated on 03/06 due to confusion and tachypneia. He was then extubated and downgraded to the floor on 03/07. On 03/10, patient again had decreased mentation on the BiPAP so was reintubated and upgraded. Cardiology has been consulted for suspected heart failure. #Right congestive heart failure with preserved EF. #Severe BASIA/OHS. #Hypernatremia. Echo on this admission showed poor quality images secondary to the patient's body habitus so was a technically limited study. Suspect chronic right heart failure in the setting of chronic obesity hypoventilation syndrome and obstructive sleep apnea. Currently appears to be more pulmonary component to respiratory failure than cardiac. Requiring ventilation support. -Echo 02/27/25: IVC appears to be dilated and also estimated RVSP also appears to be at least moderately elevated at 55 mmHg. 03/14/25: Will hold dirutics for now , he was given IV fluids yesterday. 03/15/25 : [place] catheter was placed by ICU team which showed PA pressure of more than 30s and wedge pressure was also high . started him on bumex drip . will continue the albumin . he is getting his peg tube today 03/16/25: ICU team tried another [place] catheter today which showed RA pressure of 25, PA pressure of 38, PCWP of 23. Plan is to continue Bumex for him. Cr stable at 2.5 03/17/2025: Net fluid balance -3350 cc. ICU team held Bumex due to significant electrolyte abnormalities, potassium 2.7. Once repleted Bumex drip will be resumed. Continue current management and monitor patient. 03/18/2025: net fluid balance -1650 , he received 1 dose of diamox yesterday. will continue to diures, he is off ventillor in blowby with PRN ventillator when he gets tired. 03/19/2025: no acute overnight event.Balance of -950 . ICU team put a swan catheter which showed he is adequately diressed for now, so bumex on hold for now. pending pegtube placement, its been difficult to do the procedure consedering his Rouxy history. Plan: 03/20/2025: Will hold dirutics for now, he was given IV LR and FWF via NG for hypernatremia. 03/21/2025: no acute overnight event. free water flushes increase today for hypernatremia . Xarelto resumed . bumex on hold ,Dr Doty recommending jejunostomy placement. #Atrial fibrillation, rate controlled. Patient notes positive history of afib. He had previously been on metoprolol succinate 100 mg BID. Currently appears rate-controlled in the 100s. CHADS-VASc score 4 Plan: - Metoprolol on hold in setting of right heart failure . -Resume Xarelto. -Continue amiodarone 200 mg qday. -Keep potassium >4.0 and mag >2.0. Rest of conditions to continue current management per primary team: #Acute hypoxic respiratory failure s/p tracheostomy. #Morbid obesity. #Community acquired pneumonia. #Elevated LFTs, resolved. #Hyperbilirubinemia, resolved. #History of type 2 diabetes. #Lactic acidosis, resolved. #KENIA on CKD. 03/22/2025: Patient has tracheostomy inplace and is unable to communicate much Telemetry reviewed and rest of the vital signs including the heart rate appears to be stable. Labs showed that the patient still continues to have hyponatremia at 150 and also has elevated creatinine at 2.6 and a BUN of 66. Patient is on renal water flushes for the hyponatremia and creatinine continues to improve and baseline creatinine appears to be around 2.0 Recommend to continue with free water flushes for now. Patient is morbidly obese with multiple comorbidities as mentioned below and overall prognosis appears to be poor Primary team to discuss with the family regarding goals of care. Management of rest of the medical conditions as per primary team and other consultants. Thank you for the consult and allowing me to participate in the care of the patient. Cardiology will continue to follow. Kobe Barahona M.D. Interventional Cardiology Time Spent With Patient Time: Total time spent is greater than 50% in coordination of care (as documented) at patient's floor/unit and/or counseling patient:
[2025-04-05] VITALS (14 sets, daily range): BP systolic 109–145; BP diastolic 73–89; PULSE 73–115; RESP 2–25; TEMP 35.8–37.2; O2SAT 95–99; BMI 71.4
[2025-04-05 03:41] LABS: Basophils % (Auto) 0 % (0-2.5); Eosinophils # (Auto) 0.2 Thou/mm3 (0.0-0.5); Eosinophils % (Auto) 2 % (0-10); Hematocrit 32.2 % (41.0-53.0); Hemoglobin 10.1 g/dL (13.5-16.0); Immature Granulocytes % (Auto) 1 % (0-0); Immature Granulocytes Auto 0.12 Thou/mm3 (0.00-0.00); Lymphocytes % (Auto) 11 % (10-50); Mean Corpuscular HGB Conc 31.4 g/dl (31.0-37.0); Mean Corpuscular Hemoglobin 27.9 pg (25.0-35.0); Mean Corpuscular Volume 89 fL (80-100); Monocytes # (Auto) 1.2 Thou/mm3 (0.0-0.8); Monocytes % (Auto) 13 % (0-12); Neutrophils # (Auto) 6.4 Thou/mm3 (1.8-7.7); Neutrophils % (Auto) 72 % (37-80); Nucleated Red Blood Cell % 0 /100 WBC (0); Platelet Count 293 Thou/mm3 (140-440); RDW Standard Deviation 49.3 fL (35.1-43.9); Red Blood Count 3.62 Miln/mm3 (4.50-5.90); White Blood Count 8.8 Thou/mm3 (3.8-10.6)
[2025-04-05 04:00] LABS: Alanine Aminotransferase 12 U/L (10-49); Albumin/Globulin Ratio 1.2 (1.2-2.2); Alkaline Phosphatase 156 U/L (46-116); Anion Gap 5 (7-16); Aspartate Amino Transferase 26 U/L (0-34); BUN/Creatinine Ratio 20 Ratio (12-20); Bilirubin,Total 0.4 mg/dL (0.3-1.2); Blood Urea Nitrogen 24 mg/dL (9-23); Calcium 8.4 mg/dL (8.3-10.6); Calcium (Corrected) 9.2 mg/dL (8.5-10.1); Carbon Dioxide 34.6 mMol/L (20.0-31.0); Chloride 94 mMol/L (98-107); Creatinine (Component) 1.2 mg/dL (0.6-1.3); Estimated Creatinine Clearance 104.7 mL/min (>60); Globulin 2.5 gm/dL (2.3-3.5); Glucose 169 mg/dL (74-106); Magnesium 1.9 mg/dL (1.6-2.6); Osmolality,Calculated 276 (275-295); Phosphorous 3.6 mg/dL (2.4-5.1); Potassium 4.4 mMol/L (3.4-5.1); Sodium 134 mMol/L (136-145); Total Protein 5.5 gm/dL (5.7-8.2); eGFR > 60 See Note
[2025-04-05 04:16] LABS: Partial Thromboplastin Time 137.3 Seconds (22.0-36.0)
[2025-04-05] MEDS: Heparin/D5w 25K 250 ML Ivpb 25,000 UNIT/250 ML BAG 28.032 UNIT IV (05:25)
[2025-04-05] MEDS: CEFEPIME INJ 2 GM in SODIUM CHLORIDE 0.9% (Popper) 50 ML IV ×3 (05:32→21:08)
[2025-04-05] MEDS: metroNIDAZOLE/NS 500 MG IVPB 500 MG/100 ML BAG 200 MG IV ×3 (05:33→22:12)
--- NOTE | 2025-04-05 09:03 | PC.CC ---
Addendum entered by Rashida Horner RN 04/05/25 18:32: 1819 received call from [facility] , spoke to Hermelinda and gave clinicals. She stated she will check for beds and call me back. Addendum entered by Rashida Horner RN 04/05/25 17:33: 1733 faxed clinicals to [facility]. 1719 called [facility], spoke to Keith and initiated the transfer. Addendum entered by Rashida Horner RN 04/05/25 14:58: [address] Saini. 1451 received call from [facility], spoke to Adam. He stated transfer is declined, their GI stated pt doesn't need higher level of care. Any GI can place the GJ tube. I also clarified even though his Diego-en-Y gastric bypass surgery was at [facility]. He stated transfer is declined. Addendum entered by Rashida Horner RN 04/05/25 13:44: 1341 received call from [facility], spoke to Adam. He stated the case in under MD review and he wants me to fax progress notes from last 48 hours. I also informed him that pt had his Diego-en-Y gastric bypass surgery at [facility] by Dr. Ric Wetzel. Addendum entered by Rashida Horner RN 04/05/25 09:19: 0911 called [facility] again, left VM to call back. Original Note: 908 called [facility], unable to connect to anyone or leave . [address] Shields that pt was able to communicate little better today and he found that pt had his [place]-en-Y gastric bypass surgery at [facility] by Dr. Ric Wetzel.
--- NOTE | 2025-04-05 09:09 | PC.SS ---
Follow up note: Pt is on IV antibiotic. Utilizing ventilator at night. Pt is waiting for higher level of care transfer for peg tube placement.
[2025-04-05] MEDS: AMIODARONE HCL 200 MG TABLET NG (09:19)
[2025-04-05] MEDS: MULTIVITAMIN 15 ML UDC NG (09:19)
[2025-04-05] MEDS: ASCORBIC ACID 250 MG TABLET 500 MG NG ×2 (09:19→21:48)
[2025-04-05] MEDS: ZINC SULFATE 220 MG CAPSULE NG (09:19)
[2025-04-05] MEDS: amLODIPine BESYLATE 5 MG TABLET 10 MG NG (09:19)
[2025-04-05] MEDS: INSULIN GLARGINE (Lantus) 5 UNIT/0.05 ML (PER 5 UNITS) 38 UNIT SC (09:20)
[2025-04-05] MEDS: LANSOPRAZOLE 30 MG TAB.RAP.DR NG (09:20)
[2025-04-05] MEDS: BUMETANIDE 0.5 MG TABLET 2 MG PO (09:20)
[2025-04-05] MEDS: Magnesium Sulfate 1 gm Ivpb 1 GM/100 ML BAG IV (09:20)
[2025-04-05] MEDS: INSULIN LISPRO (AdmeLOG) 1 UNIT/0.01 ML UNIT SC ×2 (11:27→17:18)
--- NOTE | 2025-04-05 11:43 | PD.RESPRO ---
Documentation for date of: 04/05/25 Subjective Subjective Interval history: Patient examined at bedside today. No acute overnight events. Patient is currently on the ventilator. Patient sodium was 134 today. Patient was able to communicate with me the name of his surgeon and the location he has had his bariatric surgery at which was [facility]. This was communicated with the transfer nurse as well. No other complaints at this time Exam Vital Signs Temp Pulse Resp BP Pulse Ox O2 Del Method O2 Flow Rate 98.1 F 98 23 H 124/81 99 Mechanical Ventilation 12 04/05/25 07:57 04/05/25 09:20 04/05/25 07:57 04/05/25 09:20 04/05/25 07:57 04/05/25 07:57 04/05/25 07:57 FiO2 50 04/05/25 07:57 Narrative Exam General: AAOx3, in mild distress, severely morbidly obese HEENT: Dry mucous membranes, conjunctiva clear, EOMI, PERRLA, trachestomy Cardiovascular: Ejection systolic murmur, radial pulses +2 bilat, irregularly irregular, Pulmonary: On ventilation, Some crackles heard GI: No tenderness to light or deep palpitation, no guarding, rigidity, rebound tenderness or distension Extremities: Trace edema in lower extremities bilaterally, dorsalis pedis pulses +2 bilaterally Back: Decubitis ulcer present that appears to be foul smelling and necrotic, no bone visualization Neuro: AAOx3, no focal motor or sensory deficits in the UE or LE bilat Objective Labs 04/05/25 03:30 04/05/25 03:30 Labs: Laboratory Results - last 24 hr 04/04/25 04/04/25 04/05/25 17:28 19:09 03:30 WBC 8.8 RBC 3.62 L Hgb 10.1 L Hct 32.2 L MCV 89 MCH 27.9 MCHC 31.4 RDW Std Deviation 49.3 H Plt Count 293 D Neut % (Auto) 72 Lymph % (Auto) 11 Gilchrist % (Auto) 13 H Eos % (Auto) 2 Baso % (Auto) 0 Neut # (Auto) 6.4 Lymph # (Auto) 1.0 Gilchrist # (Auto) 1.2 H Eos # (Auto) 0.2 Baso # (Auto) 0.0 Immature Gran # (Auto) 0.12 H Absolute Nucleated RBC 0.00 Immature Gran % 1 H Nucleated RBC % 0 APTT 26.5 D 25.9 137.3 H* D Sodium 134 L Potassium 4.4 Chloride 94 L Carbon Dioxide 34.6 H Anion Gap 5 L BUN 24 H Creatinine 1.2 Estim Creat Clear Calc 104.7 eGFR > 60 BUN/Creatinine Ratio 20 Glucose 169 H Calculated Osmolality 276 Calcium 8.4 Corrected Calcium 9.2 Phosphorus 3.6 Magnesium 1.9 Total Bilirubin 0.4 AST 26 ALT 12 Alkaline Phosphatase 156 H Total Protein 5.5 L Albumin 3.0 L Globulin 2.5 Albumin/Globulin Ratio 1.2 ABG Interpretation ABG results: 02/27/25 02/28/25 03/01/25 06:55 04:57 04:39 ABG pH 7.27 L 7.37 D 7.41 ABG pCO2 57 H 48 44 ABG pO2 101 78 L D 69 L ABG HCO3 26 28 H 28 H ABG O2 Saturation 98 95 93 ABG Base Excess -2 2 3 VBG pH VBG pCO2 VBG pO2 VBG Base Excess 03/01/25 03/01/25 03/02/25 13:15 14:52 04:25 ABG pH Cancelled 7.41 7.45 ABG pCO2 Cancelled 45 42 ABG pO2 Cancelled 53 L* 66 L ABG HCO3 Cancelled 28 H 29 H ABG O2 Saturation Cancelled 85 L 92 ABG Base Excess Cancelled 3 5 H VBG pH VBG pCO2 VBG pO2 VBG Base Excess 03/03/25 03/05/25 03/05/25 04:40 16:30 16:55 ABG pH 7.45 Cancelled 7.34 L D ABG pCO2 43 Cancelled 72 H* D ABG pO2 72 L Cancelled 83 ABG HCO3 30 H Cancelled 38 H ABG O2 Saturation 94 Cancelled 95 ABG Base Excess 5 H Cancelled 9 H VBG pH VBG pCO2 VBG pO2 VBG Base Excess 03/05/25 03/06/25 03/06/25 23:36 01:48 05:22 ABG pH 7.37 7.34 L 7.52 H D ABG pCO2 67 H 74 H* 47 D ABG pO2 150 H D 88 D 160 H D ABG HCO3 38 H 40 H 38 H ABG O2 Saturation 99 H 96 100 H ABG Base Excess 10 H 11 H 13 H VBG pH VBG pCO2 VBG pO2 VBG Base Excess 03/06/25 03/07/25 03/07/25 17:10 05:00 14:03 ABG pH 7.46 H ABG pCO2 53 H ABG pO2 65 L D ABG HCO3 38 H ABG O2 Saturation 93 ABG Base Excess 12 H VBG pH 7.50 7.52 VBG pCO2 50 47 VBG pO2 70 H 61 H VBG Base Excess 13 H 14 H 03/09/25 03/09/25 03/09/25 08:17 10:25 17:29 ABG pH 7.25 L D 7.29 L 7.29 L ABG pCO2 93 H* D 85 H* 88 H* ABG pO2 81 L 57 L* D 85 D ABG HCO3 41 H 40 H 43 H ABG O2 Saturation 95 89 L 97 ABG Base Excess 10 H 10 H 12 H VBG pH VBG pCO2 VBG pO2 VBG Base Excess 03/09/25 03/10/25 03/10/25 23:24 07:17 11:25 ABG pH 7.32 L 7.28 L 7.31 L ABG pCO2 78 H* D 90 H* D 81 H* ABG pO2 69 L 47 L* D 63 L ABG HCO3 40 H 43 H 41 H ABG O2 Saturation 94 80 L 93 ABG Base Excess 11 H 12 H 11 H VBG pH VBG pCO2 VBG pO2 VBG Base Excess 03/10/25 03/11/25 03/12/25 16:56 04:19 04:42 ABG pH 7.40 7.48 H 7.43 ABG pCO2 66 H D 54 H D 59 H ABG pO2 68 L 67 L 77 L ABG HCO3 41 H 40 H 39 H ABG O2 Saturation 94 94 96 ABG Base Excess 13 H 15 H 12 H VBG pH VBG pCO2 VBG pO2 VBG Base Excess 03/13/25 03/14/25 03/15/25 04:32 04:25 04:37 ABG pH 7.47 H 7.46 H 7.41 ABG pCO2 53 H 50 H 56 H ABG pO2 60 L 70 L 69 L ABG HCO3 38 H 36 H 35 H ABG O2 Saturation 93 95 95 ABG Base Excess 13 H 10 H 9 H VBG pH VBG pCO2 VBG pO2 VBG Base Excess 03/16/25 03/16/25 03/17/25 04:54 09:53 04:35 ABG pH 7.45 7.48 H 7.47 H ABG pCO2 51 H 49 H 53 H ABG pO2 68 L 34 L* D 87 D ABG HCO3 35 H 37 H 38 H ABG O2 Saturation 95 67 L 97 ABG Base Excess 10 H 12 H 13 H VBG pH VBG pCO2 VBG pO2 VBG Base Excess 03/18/25 03/19/25 03/26/25 04:26 05:00 08:20 ABG pH 7.44 7.45 7.46 H ABG pCO2 57 H 55 H 54 H ABG pO2 107 D 73 L D 79 L ABG HCO3 38 H 38 H 38 H ABG O2 Saturation 99 H 96 97 ABG Base Excess 12 H 12 H 12 H VBG pH VBG pCO2 VBG pO2 VBG Base Excess Quality Measures Quality Measures VTE therapy and sepsis Current suspected stage: ruled out Possible source: pulmonary Blood cultures ordered: completed in ED Antibiotic ordered: Yes Advance care planning discussed with:: patient Assessment & Plan Assessment Current Active Medications: Generic Name Dose Route Start Last Admin Trade Name Freq PRN Reason Stop Dose Admin Amiodarone HCl 200 mg 04/03/25 09:00 04/05/25 09:19 Amiodarone Hcl 200 Mg Tablet NG 05/03/25 08:59 200 mg QDAY KOURTNEY Administration Amlodipine Besylate 10 mg 03/31/25 07:30 04/05/25 09:19 Amlodipine Besylate 5 Mg Tablet NG 04/19/25 07:29 10 mg DAILY KOURTNEY Administration Ascorbic Acid 500 mg 03/27/25 12:00 04/05/25 09:19 Ascorbic Acid 250 Mg Tablet NG 04/26/25 11:59 500 mg BID KOURTNEY Administration Bumetanide 2 mg 04/02/25 09:00 04/05/25 09:20 Bumetanide 0.5 Mg Tablet PO 05/02/25 08:59 2 mg QDAY KOURTNEY Administration Bumetanide 1 mg 04/05/25 21:00 Bumetanide Inj 0.25 Mg/Ml Vial 4 Ml IVP 05/05/25 20:59 QPM KOURTNEY Collagenase 0 gm 04/01/25 11:30 04/04/25 10:12 Collagenase Oint 30 Gm Tube TOP 05/01/25 11:29 1 applicatio DAILY KOURTNEY Administration Cyclobenzaprine HCl 5 mg 03/26/25 08:25 04/03/25 12:18 Cyclobenzaprine 5 Mg Tablet PO 04/25/25 08:24 5 mg TID PRN Administration MUSCLE SPASMS Protocol Heparin Sodium/Dextrose 25,000 unit in 250 mls @ 18 mls/hr 04/01/25 16:45 04/05/25 05:25 Heparin In D5w Ivpb IV 04/15/25 16:44 13.96 units/kg/hr .[id number] KOURTNEY 28.032 mls/hr Administration Protocol 8.964 UNITS/KG/HR Metronidazole 500 mg in 100 mls @ 200 mls/hr 04/02/25 15:51 04/05/25 05:33 Flagyl 500 Mg Iv IV 04/09/25 15:50 200 mls/hr Q8HR KOURTNEY Administration Cefepime HCl 2 gm/ Sodium 50 mls @ 100 mls/hr 04/04/25 14:00 04/05/25 05:32 Chloride IV 04/11/25 13:59 100 mls/hr Q8HR KOURTNEY Administration Insulin Glargine 38 unit 03/30/25 09:00 04/05/25 09:20 Insulin Glargine (Lantus) 5 Unit/0.05 Ml (Per 5 Units) SC 04/29/25 08:59 38 unit QDAY KOURTNEY Administration Insulin Human Lispro 0 unit 03/25/25 12:00 04/05/25 11:27 Insulin Lispro (Admelog) 1 Unit/0.01 Ml Unit SC 04/24/25 11:59 2 unit Q6HR KOURTNEY Administration Protocol Lansoprazole 30 mg 03/23/25 09:30 04/05/25 09:20 Lansoprazole 30 Mg Tab.Rap.Dr NG 04/21/25 08:59 30 mg QDAY KOURTNEY Administration Multivitamins/Minerals 15 ml 03/27/25 12:00 04/05/25 09:19 Multivitamin 15 Ml Udc NG 04/26/25 11:59 15 ml QDAY KOURTNEY Administration Zinc Sulfate 220 mg 03/27/25 12:00 04/05/25 09:19 Zinc Sulfate 220 Mg Capsule 04/10/25 11:59 220 mg QDAY KOURTNEY Administration Plan Assessment 64-year-old male with past medical history of DM2, hypertension, A-fib, and Jehova's witness was admitted to the ICU on 02/27/2025 for shock and acute hypoxic respiratory failure. Initiating transfer for higher level of care at this time for Jejunostomy. #Right internal jugular venous thrombosis Venous duplex was Positive for occulsive thrombus in RIJ Plan: ? Heparin Drip per protocol (04/01- ? Continuing to hold Xarleto #Acute on Chronic Hypoxic Hypercapnic Respiratory Failure #Aspiration Pneumonia #Obesity hypoventilation syndrome and obstructive sleep apnea #Dysphagia #Tracheostomy At this point, we are currently pending approval from [facility] Patient's bariatric surgery was Dr. Wetzel at [facility] Hopefully this information will allow patient to be approved at [facility] for transfer Patient will need to have NG tube replaced soon as we are approaching 3-week jesus Plan: ? Pending Transfer to higher level of care for jejunostomy with GI ? 2 Sánchez feedings with 180 cc/2hr water flushes ? Cefepime IV 2 g every 8 hours and Flagyl 500 mg every 8 hours IV ? Blow-By as tolerated #Right diastolic CHF, improved Will give patient additional diuresis today as patient appears to be overloaded Patient sodium was 134 today Plan: ? Cardiology consulted, appreciate recs ? Continue strict daily body weight ? Continue Bumex 2 g daily, will add Bumex 1 g at night ? Daily weights ? Strict I&O #Hx of A-fib [id number] score of 3 points indicating 3.2% risk of stroke per year HAS-BLED: 0 Plan: ? Heparin drip ? Amio 200 mg QDAY NG ? Potassium and magnesium above 4 and 2 respectively ? Telemetry #Decubitus ulcer Not requiring surgical intervention at this time Plan: ? Monitor for signs of infection ? Wound care ? Wound care vitamins including zinc, multivitamin and vitamin C #Morbid obesity #DM2 A1C 7.6 on 03/05/2025 Patient has a BMI of 79.5 Plan: ? ISS scale 2 ? Hypoglycemia protocol ordered ? 38 units of Lantus #Normocytic Anemia Likely secondary to anemia of chronic disease given normal MCV. No acute intervention, continue to monitor #Community-acquired pneumonia, Enterobacter Cl[place]acoe #Leukocytosis, resolved #Enterobacter cloacoe pneumonia, resolved. #Acute encephalopathy, resolved #KENIA resolved #Hypokalemia resolved #Hypernatremia resolved #Metabolic alkalosis resolved #Health Maintenance Disposition: Pending transfer to tertiary center for higher level of care DVT prophylaxis: Heparin Drip GI prophylaxis: Protonix Diet: NG tube feeds with 2Cal with 180 cc every 2 hours for water flushes CODE STATUS: Full Patient seen and care discussed with my attending physician, Dr. Karolina Shields, PGY-1 Attending Provider Attestation/Addendum I have discussed and was present for the essential components of the history, physical examination, diagnosis, and treatment plan with the resident. I agree with the patient's care as documented by the resident and amended herein by me. Arnol Turcios, DO. Although this document has been carefully reviewed, there may still be some phonetic and other typographical errors. These errors are purely grammatical due to imperfections in the software program and should not be construed in any way to compromise the substance of the patient's medical care during this visit.
--- NOTE | 2025-04-05 12:09 | ESPR_ITS ---
<Statement entered by Lenora John MD - 04/06/25 12:14> The patient is personally examined evaluated apparently developed internal Consuelo vein thrombus on the right side but subclavian was clear started on IV heparin drip this is surprising and happen despite patient on Xarelto clinically not significant at this time patient is having some neck discomfort but no chest pain is rest of exam unremarkable I reviewed the cardiovascular status with resident physician agree with the treatment plan recommendation as documented by PGY 3 resident physician Documentation for date of: 04/05/25 Subjective Subjective Interval history: Patient examined bedside this morning, no acute overnight event. Venous Doppler ultrasound showed positive for occlusive thrombus in the right internal jugular vein. Patient is on heparin drip. Exam Vital Signs Temp Pulse Resp BP Pulse Ox O2 Del Method O2 Flow Rate 98.1 F 98 23 H 124/81 99 Mechanical Ventilation 12 04/05/25 07:57 04/05/25 09:20 04/05/25 07:57 04/05/25 09:20 04/05/25 07:57 04/05/25 07:57 04/05/25 07:57 FiO2 50 04/05/25 07:57 Narrative Exam Gen: Well-developed and well-nourished morbidly obese male. NG tube in place. HEENT: NCAT, PERRLA, EOMI, MMM, anicteric conjunctivae, tracheostomy in place. CVS: Decreased heart sounds, normal S1 and S2. RRR. No M/R/G. Resp: Decreased breath sounds B/L. No rhonchi, rales, crackles or wheezing. Abd: soft, morbidly obese, non-tender, non-distended. BS+ in all 4 quadrants. Pitting edema over bilateral flanks and sides. MSK: Good ROM in BUE & BLE. 2+ pitting edema BLE. Neuro: Limited exam due to medical condition. Objective Labs 04/05/25 03:30 04/05/25 03:30 Labs: Laboratory Results - last 24 hr 04/04/25 04/04/25 04/05/25 17:28 19:09 03:30 WBC 8.8 RBC 3.62 L Hgb 10.1 L Hct 32.2 L MCV 89 MCH 27.9 MCHC 31.4 RDW Std Deviation 49.3 H Plt Count 293 D Neut % (Auto) 72 Lymph % (Auto) 11 [place] % (Auto) 13 H Eos % (Auto) 2 Baso % (Auto) 0 Neut # (Auto) 6.4 Lymph # (Auto) 1.0 [place] # (Auto) 1.2 H Eos # (Auto) 0.2 Baso # (Auto) 0.0 Immature Gran # (Auto) 0.12 H Absolute Nucleated RBC 0.00 Immature Gran % 1 H Nucleated RBC % 0 APTT 26.5 D 25.9 137.3 H* D Sodium 134 L Potassium 4.4 Chloride 94 L Carbon Dioxide 34.6 H Anion Gap 5 L BUN 24 H Creatinine 1.2 Estim Creat Clear Calc 104.7 eGFR > 60 BUN/Creatinine Ratio 20 Glucose 169 H Calculated Osmolality 276 Calcium 8.4 Corrected Calcium 9.2 Phosphorus 3.6 Magnesium 1.9 Total Bilirubin 0.4 AST 26 ALT 12 Alkaline Phosphatase 156 H Total Protein 5.5 L Albumin 3.0 L Globulin 2.5 Albumin/Globulin Ratio 1.2 ABG Interpretation ABG results: 02/27/25 02/28/25 03/01/25 06:55 04:57 04:39 ABG pH 7.27 L 7.37 D 7.41 ABG pCO2 57 H 48 44 ABG pO2 101 78 L D 69 L ABG HCO3 26 28 H 28 H ABG O2 Saturation 98 95 93 ABG Base Excess -2 2 3 VBG pH VBG pCO2 VBG pO2 VBG Base Excess 03/01/25 03/01/25 03/02/25 13:15 14:52 04:25 ABG pH Cancelled 7.41 7.45 ABG pCO2 Cancelled 45 42 ABG pO2 Cancelled 53 L* 66 L ABG HCO3 Cancelled 28 H 29 H ABG O2 Saturation Cancelled 85 L 92 ABG Base Excess Cancelled 3 5 H VBG pH VBG pCO2 VBG pO2 VBG Base Excess 03/03/25 03/05/25 03/05/25 04:40 16:30 16:55 ABG pH 7.45 Cancelled 7.34 L D ABG pCO2 43 Cancelled 72 H* D ABG pO2 72 L Cancelled 83 ABG HCO3 30 H Cancelled 38 H ABG O2 Saturation 94 Cancelled 95 ABG Base Excess 5 H Cancelled 9 H VBG pH VBG pCO2 VBG pO2 VBG Base Excess 03/05/25 03/06/25 03/06/25 23:36 01:48 05:22 ABG pH 7.37 7.34 L 7.52 H D ABG pCO2 67 H 74 H* 47 D ABG pO2 150 H D 88 D 160 H D ABG HCO3 38 H 40 H 38 H ABG O2 Saturation 99 H 96 100 H ABG Base Excess 10 H 11 H 13 H VBG pH VBG pCO2 VBG pO2 VBG Base Excess 03/06/25 03/07/25 03/07/25 17:10 05:00 14:03 ABG pH 7.46 H ABG pCO2 53 H ABG pO2 65 L D ABG HCO3 38 H ABG O2 Saturation 93 ABG Base Excess 12 H VBG pH 7.50 7.52 VBG pCO2 50 47 VBG pO2 70 H 61 H VBG Base Excess 13 H 14 H 03/09/25 03/09/25 03/09/25 08:17 10:25 17:29 ABG pH 7.25 L D 7.29 L 7.29 L ABG pCO2 93 H* D 85 H* 88 H* ABG pO2 81 L 57 L* D 85 D ABG HCO3 41 H 40 H 43 H ABG O2 Saturation 95 89 L 97 ABG Base Excess 10 H 10 H 12 H VBG pH VBG pCO2 VBG pO2 VBG Base Excess 03/09/25 03/10/25 03/10/25 23:24 07:17 11:25 ABG pH 7.32 L 7.28 L 7.31 L ABG pCO2 78 H* D 90 H* D 81 H* ABG pO2 69 L 47 L* D 63 L ABG HCO3 40 H 43 H 41 H ABG O2 Saturation 94 80 L 93 ABG Base Excess 11 H 12 H 11 H VBG pH VBG pCO2 VBG pO2 VBG Base Excess 03/10/25 03/11/25 03/12/25 16:56 04:19 04:42 ABG pH 7.40 7.48 H 7.43 ABG pCO2 66 H D 54 H D 59 H ABG pO2 68 L 67 L 77 L ABG HCO3 41 H 40 H 39 H ABG O2 Saturation 94 94 96 ABG Base Excess 13 H 15 H 12 H VBG pH VBG pCO2 VBG pO2 VBG Base Excess 04/30/25 05/01/25 05/02/25 04:32 04:25 04:37 ABG pH 7.47 H 7.46 H 7.41 ABG pCO2 53 H 50 H 56 H ABG pO2 60 L 70 L 69 L ABG HCO3 38 H 36 H 35 H ABG O2 Saturation 93 95 95 ABG Base Excess 13 H 10 H 9 H VBG pH VBG pCO2 VBG pO2 VBG Base Excess 03/16/25 03/16/25 03/17/25 04:54 09:53 04:35 ABG pH 7.45 7.48 H 7.47 H ABG pCO2 51 H 49 H 53 H ABG pO2 68 L 34 L* D 87 D ABG HCO3 35 H 37 H 38 H ABG O2 Saturation 95 67 L 97 ABG Base Excess 10 H 12 H 13 H VBG pH VBG pCO2 VBG pO2 VBG Base Excess 03/18/25 03/19/25 03/26/25 04:26 05:00 08:20 ABG pH 7.44 7.45 7.46 H ABG pCO2 57 H 55 H 54 H ABG pO2 107 D 73 L D 79 L ABG HCO3 38 H 38 H 38 H ABG O2 Saturation 99 H 96 97 ABG Base Excess 12 H 12 H 12 H VBG pH VBG pCO2 VBG pO2 VBG Base Excess Quality Measures Quality Measures VTE therapy and sepsis Current suspected stage: ruled out Possible source: pulmonary Blood cultures ordered: completed in ED Antibiotic ordered: Yes Advance care planning discussed with:: patient Assessment & Plan Assessment Current Active Medications: Generic Name Dose Route Start Last Admin Trade Name Freq PRN Reason Stop Dose Admin Amiodarone HCl 200 mg 04/03/25 09:00 04/05/25 09:19 Amiodarone Hcl 200 Mg Tablet NG 05/03/25 08:59 200 mg QDAY KOURTNEY Administration Amlodipine Besylate 10 mg 03/31/25 07:30 04/05/25 09:19 Amlodipine Besylate 5 Mg Tablet NG 04/19/25 07:29 10 mg DAILY KOURTNEY Administration Ascorbic Acid 500 mg 03/27/25 12:00 04/05/25 09:19 Ascorbic Acid 250 Mg Tablet NG 04/26/25 11:59 500 mg BID KOURTNEY Administration Bumetanide 2 mg 04/02/25 09:00 04/05/25 09:20 Bumetanide 0.5 Mg Tablet PO 05/02/25 08:59 2 mg QDAY KOURTNEY Administration Bumetanide 1 mg 04/05/25 21:00 Bumetanide Inj 0.25 Mg/Ml Vial 4 Ml IVP 05/05/25 20:59 QPM KOURTNEY Collagenase 0 gm 04/01/25 11:30 04/04/25 10:12 Collagenase Oint 30 Gm Tube TOP 05/01/25 11:29 1 applicatio DAILY KOURTNEY Administration Cyclobenzaprine HCl 5 mg 03/26/25 08:25 04/03/25 12:18 Cyclobenzaprine 5 Mg Tablet PO 04/25/25 08:24 5 mg TID PRN Administration MUSCLE SPASMS Protocol Heparin Sodium/Dextrose 25,000 unit in 250 mls @ 18 mls/hr 04/01/25 16:45 04/05/25 05:25 Heparin In D5w Ivpb IV 04/15/25 16:44 13.96 units/kg/hr .[id number] KOURTNEY 28.032 mls/hr Administration Protocol 8.964 UNITS/KG/HR Metronidazole 500 mg in 100 mls @ 200 mls/hr 04/02/25 15:51 04/05/25 05:33 Flagyl 500 Mg Iv IV 04/09/25 15:50 200 mls/hr Q8HR KOURTNEY Administration Cefepime HCl 2 gm/ Sodium 50 mls @ 100 mls/hr 04/04/25 14:00 04/05/25 05:32 Chloride IV 04/11/25 13:59 100 mls/hr Q8HR KOURTNEY Administration Insulin Glargine 38 unit 03/30/25 09:00 04/05/25 09:20 Insulin Glargine (Lantus) 5 Unit/0.05 Ml (Per 5 Units) SC 04/29/25 08:59 38 unit QDAY KOURTNEY Administration Insulin Human Lispro 0 unit 03/25/25 12:00 04/05/25 11:27 Insulin Lispro (Admelog) 1 Unit/0.01 Ml Unit SC 04/24/25 11:59 2 unit Q6HR KOURTNEY Administration Protocol Lansoprazole 30 mg 03/23/25 09:30 04/05/25 09:20 Lansoprazole 30 Mg Tab.Rap.Dr CHAPIN 04/21/25 08:59 30 mg QDAY KOURTNEY Administration Multivitamins/Minerals 15 ml 03/27/25 12:00 04/05/25 09:19 Multivitamin 15 Ml Udc NG 04/26/25 11:59 15 ml QDAY KOURTNEY Administration Zinc Sulfate 220 mg 03/27/25 12:00 04/05/25 09:19 Zinc Sulfate 220 Mg Capsule NG 04/10/25 11:59 220 mg QDAY KOURTNEY Administration Plan 64-year-old male with significant past medical history of hypertension, diabetes mellitus, A-fib was admitted to the ICU on 02/27/2025 after coming in with altered mental status and shortness of breath, intubated for acute hypoxic respiratory failure and had suspected obesity hypoventilation syndrome/obstructive sleep apnea/pneumonia and acute kidney injury. He was extubated on 03/03 and downgraded then re-intubated on 03/06 due to confusion and tachypneia. He was then extubated and downgraded to the floor on 03/07. On 03/10, patient again had decreased mentation on the BiPAP so was reintubated and upgraded. Cardiology has been consulted for suspected heart failure. #Right congestive heart failure with preserved EF. #Severe BASIA/OHS. Echo on this admission showed poor quality images secondary to the patient's body habitus so was a technically limited study. Suspect chronic right heart failure in the setting of chronic obesity hypoventilation syndrome and obstructive sleep apnea. Currently appears to be more pulmonary component to respiratory failure than cardiac. Requiring ventilation support. -Echo 02/27/25: IVC appears to be dilated and also estimated RVSP also appears to be at least moderately elevated at 55 mmHg. 03/14/25: Will hold dirutics for now , he was given IV fluids yesterday. 03/15/25 : [place]ady catheter was placed by ICU team which showed PA pressure of more than 30s and wedge pressure was also high . started him on bumex drip . will continue the albumin . he is getting his peg tube today 03/16/25: ICU team tried another [place] catheter today which showed RA pressure of 25, PA pressure of 38, PCWP of 23. Plan is to continue Bumex for him. Cr stable at 2.5 03/17/2025: Net fluid balance -3350 cc. ICU team held Bumex due to significant electrolyte abnormalities, potassium 2.7. Once repleted Bumex drip will be resumed. Continue current management and monitor patient. 03/18/2025: net fluid balance -1650 , he received 1 dose of diamox yesterday. will continue to diures, he is off ventillor in blowby with PRN ventillator when he gets tired. 03/19/2025: no acute overnight event.Balance of -950 . ICU team put a swan catheter which showed he is adequately diressed for now, so bumex on hold for now. pending pegtube placement, its been difficult to do the procedure consedering his Rouxy history. Plan: 03/20/2025: Will hold dirutics for now, he was given IV LR and FWF via NG for hypernatremia. 03/21/2025: no acute overnight event. free water flushes increase today for hypernatremia . Xarelto resumed . bumex on hold ,Dr Doty recommending jejunostomy placement. 03/22/2025:Patient has tracheostomy inplace and is unable to communicate much Telemetry reviewed and rest of the vital signs including the heart rate appears to be stable. Labs showed that the patient still continues to have hyponatremia at 150 and also has elevated creatinine at 2.6 and a BUN of 66. Patient is on renal water flushes for the hyponatremia and creatinine continues to improve and baseline creatinine appears to be around 2.0 Recommend to continue with free water flushes for now. Patient is morbidly obese with multiple comorbidities as mentioned below and overall prognosis appears to be poor Primary team to discuss with the family regarding goals of care. 03/23/2025:Continued on free water flushes, sodium 150 > 149. Renal function showing minor improvement with BUN 63, CR 2.4, EGFR 29. Poor urine output. 2/3+ LE edema noted on exam again. Vitals relatively normal, BP 121/92, HR 98 although spikes of HR 120s noted on tele, continued on blow-by and satting well.? Continue with free-water flushes, monitor renal function closely,Continue AMIODARONE 200 mg daily, Continue AMLODIPINE 10 mg daily,Continue XARELTO 20 mg, Okay holding BUMEX 2 mg IV BID as per nephro team, may need HD eventually if renally function not improving, kadi givens persisting edema. 03/25/2025: no acute overnight event, he was given diamox by nephrology speech therapist was at bedside , kidney function improving . Na is normal today at 143 . Bumex still on hold. .Continue amiodarone 200 mg daily, Amlodipine 10 mg daily, Continue XARELTO 20 mg 03/26/2025: no acute overnight event , primary team reffered him to hospice pending decision . Bumex still on hold. .Continue amiodarone 200 mg daily, Amlodipine 10 mg daily, Continue XARELTO 20 mg 03/27/2025: no acute overnight event . Bumex still on hold. .Continue amiodarone 200 mg daily, Amlodipine 10 mg daily, Continue XARELTO 20 mg, his na is 147 . pending disposition as pt patients need more time to decide. 03/28/2025: no acute overnight event . Bumex still on hold. .Continue amiodarone 200 mg daily, Amlodipine 10 mg daily, Continue XARELTO 20 mg, his na is 147 . pending disposition . 03/29/2025: no acute overnight event . Bumex still on hold. .Continue amiodarone 200 mg daily, Amlodipine 10 mg daily, Continue XARELTO 20 mg, his na is 147 . pending disposition He is pending transfer for IR or surgical jejunostomy or PEG placement due to history of Diego-en-Y. 04/01/25: patient might benefit from Bumex, his sodium is 137 and edema is still pretty significant. Resume Bumex 2 mg PO daily. Pending placement. 04/02/25: Continue Bumex 2 mg daily. Sodium today 135. Vitals are stable. 04/03/2025: no acute overnight event. He is back on ventilator. He was on blow- by for a brief amount of time in the morning.Continue Bumex 2mg Q day. he is having good urine output. 04/04/2025: no acute overnight events. In blow by . Continue bumex, having good urine output. 04/05/2025: no acute overnight event. Venous Doppler ultrasound showed positive for occlusive thrombus in the right internal jugular vein. Patient is on heparin drip. #Atrial fibrillation, rate controlled. Patient notes positive history of afib. He had previously been on metoprolol succinate 100 mg BID. Currently appears rate-controlled in the 100s. CHADS-VASc score 4. Plan: -continue Xarelto(on hold ), on heparin drip -Continue amiodarone 200 mg qday. -Keep potassium >4.0 and mag >2.0. Rest of conditions to continue current management per primary team: #Acute hypoxic respiratory failure s/p tracheostomy. #Morbid obesity. #Community acquired pneumonia. #Elevated LFTs, resolved. #Hyperbilirubinemia, resolved. #History of type 2 diabetes. #Lactic acidosis, resolved. #KENIA on CKD. #Hypernatremia. Discussed the patient with my attending Dr John. Shaina Newell MD,PGY-3
[2025-04-05] MEDS: HEPARIN SOD INJ 5000 UNIT/ML VIAL 8000 UNIT IV (13:05)
[2025-04-05] MEDS: COLLAGENASE OINT 30 GM TUBE TOP (14:19)
[2025-04-05] MEDS: Heparin/D5w 25K 250 ML Ivpb 25,000 UNIT/250 ML BAG 36.064 UNIT IV (14:35)
--- NOTE | 2025-04-05 15:37 | PC.NURSE ---
LAB CALLED THIS NURSE TO REPORT THAT PTT RESULT OF 27.5 IS NOT CORRECT AND ACTUAL PTT IS 98.2. MD AQUINO NOTIFIED OF PTT AND LAB CALL. ORDER GIVEN TO HOLD HEPARIN GTT UNTILL NEXT PTT RESULT.
[2025-04-05 15:47] LABS: Partial Thromboplastin Time 98.2 Seconds (22.0-36.0)
--- NOTE | 2025-04-05 19:29 | ESPR_ITS ---
Documentation for date of: 04/05/25 Subjective Subjective Interval history: Working with the transfer team Exam Vital Signs Temp Pulse Resp BP Pulse Ox O2 Del Method O2 Flow Rate 98.2 F 104 H 15 145/89 H 96 Blow-by 12 04/05/25 16:00 04/05/25 16:00 04/05/25 16:00 04/05/25 16:00 04/05/25 16:00 04/05/25 16:00 04/05/25 16:00 FiO2 50 04/05/25 12:26 Objective Labs 04/05/25 03:30 04/05/25 03:30 Labs: Laboratory Results - last 24 hr 04/04/25 04/05/25 04/05/25 19:09 03:30 11:25 WBC 8.8 RBC 3.62 L Hgb 10.1 L Hct 32.2 L MCV 89 MCH 27.9 MCHC 31.4 RDW Std Deviation 49.3 H Plt Count 293 D Neut % (Auto) 72 Lymph % (Auto) 11 [place] % (Auto) 13 H Eos % (Auto) 2 Baso % (Auto) 0 Neut # (Auto) 6.4 Lymph # (Auto) 1.0 [place] # (Auto) 1.2 H Eos # (Auto) 0.2 Baso # (Auto) 0.0 Immature Gran # (Auto) 0.12 H Absolute Nucleated RBC 0.00 Immature Gran % 1 H Nucleated RBC % 0 APTT 25.9 137.3 H* D 98.2 H D Sodium 134 L Potassium 4.4 Chloride 94 L Carbon Dioxide 34.6 H Anion Gap 5 L BUN 24 H Creatinine 1.2 Estim Creat Clear Calc 104.7 eGFR > 60 BUN/Creatinine Ratio 20 Glucose 169 H Calculated Osmolality 276 Calcium 8.4 Corrected Calcium 9.2 Phosphorus 3.6 Magnesium 1.9 Total Bilirubin 0.4 AST 26 ALT 12 Alkaline Phosphatase 156 H Total Protein 5.5 L Albumin 3.0 L Globulin 2.5 Albumin/Globulin Ratio 1.2 Impressions Impression: Failure to thrive status post Diego-en-Y gastrojejunostomy Respiratory failure requiring tracheostomy Continue to work with the transfer center ABG Interpretation ABG results: 02/27/25 02/28/25 03/01/25 06:55 04:57 04:39 ABG pH 7.27 L 7.37 D 7.41 ABG pCO2 57 H 48 44 ABG pO2 101 78 L D 69 L ABG HCO3 26 28 H 28 H ABG O2 Saturation 98 95 93 ABG Base Excess -2 2 3 VBG pH VBG pCO2 VBG pO2 VBG Base Excess 03/01/25 03/01/25 03/02/25 13:15 14:52 04:25 ABG pH Cancelled 7.41 7.45 ABG pCO2 Cancelled 45 42 ABG pO2 Cancelled 53 L* 66 L ABG HCO3 Cancelled 28 H 29 H ABG O2 Saturation Cancelled 85 L 92 ABG Base Excess Cancelled 3 5 H VBG pH VBG pCO2 VBG pO2 VBG Base Excess 03/03/25 03/05/25 03/05/25 04:40 16:30 16:55 ABG pH 7.45 Cancelled 7.34 L D ABG pCO2 43 Cancelled 72 H* D ABG pO2 72 L Cancelled 83 ABG HCO3 30 H Cancelled 38 H ABG O2 Saturation 94 Cancelled 95 ABG Base Excess 5 H Cancelled 9 H VBG pH VBG pCO2 VBG pO2 VBG Base Excess 03/05/25 03/06/25 03/06/25 23:36 01:48 05:22 ABG pH 7.37 7.34 L 7.52 H D ABG pCO2 67 H 74 H* 47 D ABG pO2 150 H D 88 D 160 H D ABG HCO3 38 H 40 H 38 H ABG O2 Saturation 99 H 96 100 H ABG Base Excess 10 H 11 H 13 H VBG pH VBG pCO2 VBG pO2 VBG Base Excess 03/06/25 03/07/25 03/07/25 17:10 05:00 14:03 ABG pH 7.46 H ABG pCO2 53 H ABG pO2 65 L D ABG HCO3 38 H ABG O2 Saturation 93 ABG Base Excess 12 H VBG pH 7.50 7.52 VBG pCO2 50 47 VBG pO2 70 H 61 H VBG Base Excess 13 H 14 H 03/09/25 03/09/25 03/09/25 08:17 10:25 17:29 ABG pH 7.25 L D 7.29 L 7.29 L ABG pCO2 93 H* D 85 H* 88 H* ABG pO2 81 L 57 L* D 85 D ABG HCO3 41 H 40 H 43 H ABG O2 Saturation 95 89 L 97 ABG Base Excess 10 H 10 H 12 H VBG pH VBG pCO2 VBG pO2 VBG Base Excess 03/09/25 03/10/25 03/10/25 23:24 07:17 11:25 ABG pH 7.32 L 7.28 L 7.31 L ABG pCO2 78 H* D 90 H* D 81 H* ABG pO2 69 L 47 L* D 63 L ABG HCO3 40 H 43 H 41 H ABG O2 Saturation 94 80 L 93 ABG Base Excess 11 H 12 H 11 H VBG pH VBG pCO2 VBG pO2 VBG Base Excess 03/10/25 03/11/25 03/12/25 16:56 04:19 04:42 ABG pH 7.40 7.48 H 7.43 ABG pCO2 66 H D 54 H D 59 H ABG pO2 68 L 67 L 77 L ABG HCO3 41 H 40 H 39 H ABG O2 Saturation 94 94 96 ABG Base Excess 13 H 15 H 12 H VBG pH VBG pCO2 VBG pO2 VBG Base Excess 03/13/25 03/14/25 03/15/25 04:32 04:25 04:37 ABG pH 7.47 H 7.46 H 7.41 ABG pCO2 53 H 50 H 56 H ABG pO2 60 L 70 L 69 L ABG HCO3 38 H 36 H 35 H ABG O2 Saturation 93 95 95 ABG Base Excess 13 H 10 H 9 H VBG pH VBG pCO2 VBG pO2 VBG Base Excess 03/16/25 03/16/25 03/17/25 04:54 09:53 04:35 ABG pH 7.45 7.48 H 7.47 H ABG pCO2 51 H 49 H 53 H ABG pO2 68 L 34 L* D 87 D ABG HCO3 35 H 37 H 38 H ABG O2 Saturation 95 67 L 97 ABG Base Excess 10 H 12 H 13 H VBG pH VBG pCO2 VBG pO2 VBG Base Excess 03/18/25 03/19/25 03/26/25 04:26 05:00 08:20 ABG pH 7.44 7.45 7.46 H ABG pCO2 57 H 55 H 54 H ABG pO2 107 D 73 L D 79 L ABG HCO3 38 H 38 H 38 H ABG O2 Saturation 99 H 96 97 ABG Base Excess 12 H 12 H 12 H VBG pH VBG pCO2 VBG pO2 VBG Base Excess Assessment & Plan A&P Narrative 64-year-old male with significant past medical history of hypertension, diabetes mellitus, A-fib was admitted to the ICU on 02/27/2025 after coming in with altered mental status and shortness of breath, intubated for acute hypoxic respiratory failure and had suspected obesity hypoventilation syndrome/obstructive sleep apnea/pneumonia and acute kidney injury. He was extubated on 03/03 and downgraded then re-intubated on 03/06 due to confusion and tachypneia. He was then extubated and downgraded to the floor on 03/07. On 03/10, patient again had decreased mentation on the BiPAP so was reintubated and upgraded. Cardiology has been consulted for suspected heart failure. #Right congestive heart failure with preserved EF. #Severe BASIA/OHS. #Hypernatremia. Echo on this admission showed poor quality images secondary to the patient's body habitus so was a technically limited study. Suspect chronic right heart failure in the setting of chronic obesity hypoventilation syndrome and obstructive sleep apnea. Currently appears to be more pulmonary component to respiratory failure than cardiac. Requiring ventilation support. -Echo 02/27/25: IVC appears to be dilated and also estimated RVSP also appears to be at least moderately elevated at 55 mmHg. 03/14/25: Will hold dirutics for now , he was given IV fluids yesterday. 03/15/25 : [place] catheter was placed by ICU team which showed PA pressure of more than 30s and wedge pressure was also high . started him on bumex drip . will continue the albumin . he is getting his peg tube today 03/16/25: ICU team tried another [place] catheter today which showed RA pressure of 25, PA pressure of 38, PCWP of 23. Plan is to continue Bumex for him. Cr stable at 2.5 03/17/2025: Net fluid balance -3350 cc. ICU team held Bumex due to significant electrolyte abnormalities, potassium 2.7. Once repleted Bumex drip will be resumed. Continue current management and monitor patient. 03/18/2025: net fluid balance -1650 , he received 1 dose of diamox yesterday. will continue to diures, he is off ventillor in blowby with PRN ventillator when he gets tired. 03/19/2025: no acute overnight event.Balance of -950 . ICU team put a swan catheter which showed he is adequately diressed for now, so bumex on hold for now. pending pegtube placement, its been difficult to do the procedure consedering his Rouxy history. Plan: 03/20/2025: Will hold dirutics for now, he was given IV LR and FWF via NG for hypernatremia. 03/21/2025: no acute overnight event. free water flushes increase today for hypernatremia . Xarelto resumed . bumex on hold ,Dr Doty recommending jejunostomy placement. #Atrial fibrillation, rate controlled. Patient notes positive history of afib. He had previously been on metoprolol succinate 100 mg BID. Currently appears rate-controlled in the 100s. CHADS-VASc score 4 Plan: - Metoprolol on hold in setting of right heart failure . -Resume Xarelto. -Continue amiodarone 200 mg qday. -Keep potassium >4.0 and mag >2.0. Rest of conditions to continue current management per primary team: #Acute hypoxic respiratory failure s/p tracheostomy. #Morbid obesity. #Community acquired pneumonia. #Elevated LFTs, resolved. #Hyperbilirubinemia, resolved. #History of type 2 diabetes. #Lactic acidosis, resolved. #KENIA on CKD. 03/22/2025: Patient has tracheostomy inplace and is unable to communicate much Telemetry reviewed and rest of the vital signs including the heart rate appears to be stable. Labs showed that the patient still continues to have hyponatremia at 150 and also has elevated creatinine at 2.6 and a BUN of 66. Patient is on renal water flushes for the hyponatremia and creatinine continues to improve and baseline creatinine appears to be around 2.0 Recommend to continue with free water flushes for now. Patient is morbidly obese with multiple comorbidities as mentioned below and overall prognosis appears to be poor Primary team to discuss with the family regarding goals of care. Management of rest of the medical conditions as per primary team and other consultants. Thank you for the consult and allowing me to participate in the care of the patient. Cardiology will continue to follow. Kobe Barahona M.D. Interventional Cardiology Time Spent With Patient Time: Total time spent is greater than 50% in coordination of care (as documented) at patient's floor/unit and/or counseling patient:
--- NOTE | 2025-04-05 20:31 | XR_ITS ---
Examination: AP chest single view TECHNIQUE: Portable sitting AP chest single view INDICATIONS: Posterior gastric tube placement FINDINGS: Orogastric tube is in stomach Again noted cardiomegaly with diffuse right lung opacity consistent with pneumonia Tracheostomy tube tip 6.8 cm above [place] Prominent vascular congestion suspicious for mild heart failure IMPRESSION: Diffuse right lung pneumonia with layering right pleural fluid Mild heart failure Orogastric tube is in the stomach
[2025-04-05] MEDS: HEPARIN SOD INJ 5000 UNIT/ML VIAL 4000 UNIT IV (21:07)
[2025-04-05] MEDS: BUMETANIDE INJ 0.25 MG/ML VIAL 4 ML 1 MG IVP (21:08)
[2025-04-06] VITALS (12 sets, daily range): BP systolic 111–135; BP diastolic 71–86; PULSE 56–106; RESP 18–30; TEMP 36.2–37.2; O2SAT 93–100; BMI 71.4
[2025-04-06 02:16] LABS: Partial Thromboplastin Time 76.3 Seconds (22.0-36.0)
[2025-04-06] MEDS: CEFEPIME INJ 2 GM in SODIUM CHLORIDE 0.9% (Popper) 50 ML IV ×3 (05:12→21:40)
[2025-04-06] MEDS: metroNIDAZOLE/NS 500 MG IVPB 500 MG/100 ML BAG 200 MG IV ×3 (05:17→21:41)
[2025-04-06] MEDS: Heparin/D5w 25K 250 ML Ivpb 25,000 UNIT/250 ML BAG 26.024 UNIT IV ×2 (05:41→14:47)
[2025-04-06 07:48] LABS: Basophils % (Auto) 0 % (0-2.5); Eosinophils # (Auto) 0.2 Thou/mm3 (0.0-0.5); Eosinophils % (Auto) 2 % (0-10); Hematocrit 31.9 % (41.0-53.0); Hemoglobin 10.1 g/dL (13.5-16.0); Immature Granulocytes % (Auto) 1 % (0-0); Immature Granulocytes Auto 0.15 Thou/mm3 (0.00-0.00); Lymphocytes # (Auto) 1.4 Thou/mm3 (1.0-4.8); Lymphocytes % (Auto) 13 % (10-50); Mean Corpuscular HGB Conc 31.7 g/dl (31.0-37.0); Mean Corpuscular Hemoglobin 28.1 pg (25.0-35.0); Mean Corpuscular Volume 89 fL (80-100); Monocytes # (Auto) 1.4 Thou/mm3 (0.0-0.8); Monocytes % (Auto) 13 % (0-12); Neutrophils # (Auto) 7.3 Thou/mm3 (1.8-7.7); Neutrophils % (Auto) 70 % (37-80); Nucleated Red Blood Cell % 0 /100 WBC (0); Platelet Count 284 Thou/mm3 (140-440); RDW Standard Deviation 49.8 fL (35.1-43.9); Red Blood Count 3.59 Miln/mm3 (4.50-5.90); White Blood Count 10.4 Thou/mm3 (3.8-10.6)
[2025-04-06 08:13] LABS: Alanine Aminotransferase 12 U/L (10-49); Albumin, Serum 3.1 gm/dL (3.4-4.8); Albumin/Globulin Ratio 1.2 (1.2-2.2); Alkaline Phosphatase 160 U/L (46-116); Anion Gap 5 (7-16); Aspartate Amino Transferase 29 U/L (0-34); BUN/Creatinine Ratio 23 Ratio (12-20); Bilirubin,Total 0.4 mg/dL (0.3-1.2); Blood Urea Nitrogen 27 mg/dL (9-23); Calcium 7.9 mg/dL (8.3-10.6); Calcium (Corrected) 8.6 mg/dL (8.5-10.1); Carbon Dioxide 36.8 mMol/L (20.0-31.0); Chloride 95 mMol/L (98-107); Creatinine (Component) 1.2 mg/dL (0.6-1.3); Estimated Creatinine Clearance 104.9 mL/min (>60); Globulin 2.5 gm/dL (2.3-3.5); Glucose 174 mg/dL (74-106); Magnesium 1.7 mg/dL (1.6-2.6); Osmolality,Calculated 282 (275-295); Potassium 4.2 mMol/L (3.4-5.1); Sodium 137 mMol/L (136-145); Total Protein 5.6 gm/dL (5.7-8.2); eGFR > 60 See Note
[2025-04-06] MEDS: INSULIN GLARGINE (Lantus) 5 UNIT/0.05 ML (PER 5 UNITS) 38 UNIT SC (08:22)
[2025-04-06] MEDS: MULTIVITAMIN 15 ML UDC NG (08:23)
[2025-04-06] MEDS: BUMETANIDE 0.5 MG TABLET 2 MG PO (08:23)
[2025-04-06] MEDS: ZINC SULFATE 220 MG CAPSULE NG (08:24)
[2025-04-06] MEDS: amLODIPine BESYLATE 5 MG TABLET 10 MG NG (08:24)
[2025-04-06] MEDS: LANSOPRAZOLE 30 MG TAB.RAP.DR NG (08:24)
[2025-04-06] MEDS: AMIODARONE HCL 200 MG TABLET NG (08:24)
[2025-04-06] MEDS: ASCORBIC ACID 250 MG TABLET 500 MG NG ×2 (08:24→21:38)
[2025-04-06] MEDS: COLLAGENASE OINT 30 GM TUBE TOP (08:25)
[2025-04-06 08:40] LABS: Partial Thromboplastin Time 63.6 Seconds (22.0-36.0)
--- NOTE | 2025-04-06 08:41 | PC.CM ---
Addendum entered by Pamela Holliday RN 04/06/25 15:37: [address] Turcios and he is aware patient was declined by [facility]. He asked that I call [facility] again becuse he would like to speak to the doctor. I called and spoke to the transfer nurse and and I presented the case again stating my doctor would like to speak to their MD. Transfer nurse states he will try and reach out to his doctor today. He states if he does not get back to him today, we can try back again tomorrow. 1400 Dr. Turcios stated in rounding that they are going to reach out to Dr. Doty to see if there is anything he can offer. Original Note: I spoke to [facility] this morning and they stated their doctor declined patient stating he will need a tertiary center that can handle bariatric patients. [facility] declined patient. Patient was also declined by [facility].
[2025-04-06] MEDS: INSULIN LISPRO (AdmeLOG) 1 UNIT/0.01 ML UNIT SC (11:40)
--- NOTE | 2025-04-06 11:50 | XR_ITS ---
Examination: Duplex scan of the upper extremity, unilateral right Date and time of exam: March 17, 2025 at 1707 hours Comparison April 01, 2025 INDICATIONS: Bilateral arm edema beginning April 01, 2025, positive for occlusive thrombus in the right internal jugular vein on venous Doppler Apr 01 2025 Technique: Duplex scan of the extremity veins using B-mode/grayscale imaging and Doppler spectral analysis and color flow Attention is directed to internal echogenicity, compression and augmentation involving these veins, color flow assessment, spectral analysis Findings: Findings remain positive for right internal jugular deep vein thrombus The subclavian, axillary, cephalic, brachial, basilic veins are open Radial and ulnar veins are covered with bandages IMPRESSION: Findings remain positive for right internal jugular deep vein thrombus
--- NOTE | 2025-04-06 11:57 | PD.RESPRO ---
Documentation for date of: 04/06/25 Subjective Subjective Interval history: Patient was seen and examined at bedside this AM. No acute exents overnight. Patient tolerating NG feeds, adequate urine output and mentation is at baseline. Patient nonverbal due to tracheostomy. Urine output not charted due to patient being in a diaper, sodium 137 and weight decreased to 206.24 kg from 206.3 kg. Currently on diuresis with Bumex 2 Mg every morning and 1 Mg every afternoon, free water flushes ongoing at 180 cc/h which is a deficit [his maintenance requirements 212 cc/h]. Today patient's right arm appeared more swollen than his left, ordered right upper extremity duplex ultrasound to rule out extension of RIJ thrombus. Will consider hematology consult based on results of ultrasound. [place] [facility] [place] try to reach out to Dr. Mena for C-arm guided fluoroscopic swallow study at bedside. Currently more than 2 weeks since patient NG tube was placed, we will reach out to GI for recommendations. Exam Vital Signs Temp Pulse Resp BP Pulse Ox O2 Del Method O2 Flow Rate 97.7 F 83 18 132/84 H 100 Mechanical Ventilation 12 04/06/25 08:00 04/06/25 08:24 04/06/25 08:00 04/06/25 08:24 04/06/25 08:00 04/06/25 08:00 04/06/25 08:00 FiO2 50 04/06/25 08:00 Narrative Exam General: AAOx3, in mild distress, severely morbidly obese HEENT: Dry mucous membranes, conjunctiva clear, EOMI, PERRLA, trachestomy Cardiovascular: Ejection systolic murmur, radial pulses +2 bilat, irregularly irregular, Pulmonary: On ventilation, Some crackles heard GI: No tenderness to light or deep palpitation, no guarding, rigidity, rebound tenderness or distension Extremities: Trace edema in lower extremities bilaterally, dorsalis pedis pulses +2 bilaterally Back: Decubitis ulcer present that appears to be foul smelling and necrotic, no bone visualization Neuro: AAOx3, no focal motor or sensory deficits in the UE or LE bilat Objective Labs 04/06/25 07:32 04/06/25 07:32 Labs: Laboratory Results - last 24 hr 04/05/25 04/05/25 04/06/25 11:25 19:10 01:21 WBC RBC Hgb Hct MCV MCH MCHC RDW Std Deviation Plt Count Neut % (Auto) Lymph % (Auto) [place] % (Auto) Eos % (Auto) Baso % (Auto) Neut # (Auto) Lymph # (Auto) [place] # (Auto) Eos # (Auto) Baso # (Auto) Immature Gran # (Auto) Absolute Nucleated RBC Immature Gran % Nucleated RBC % APTT 98.2 H D 41.0 H D 76.3 H D Sodium Potassium Chloride Carbon Dioxide Anion Gap BUN Creatinine Estim Creat Clear Calc eGFR BUN/Creatinine Ratio Glucose Calculated Osmolality Calcium Corrected Calcium Magnesium Total Bilirubin AST ALT Alkaline Phosphatase Total Protein Albumin Globulin Albumin/Globulin Ratio 04/06/25 07:32 WBC 10.4 RBC 3.59 L Hgb 10.1 L Hct 31.9 L MCV 89 MCH 28.1 MCHC 31.7 RDW Std Deviation 49.8 H Plt Count 284 Neut % (Auto) 70 Lymph % (Auto) 13 [place] % (Auto) 13 H Eos % (Auto) 2 Baso % (Auto) 0 Neut # (Auto) 7.3 Lymph # (Auto) 1.4 [place] # (Auto) 1.4 H Eos # (Auto) 0.2 Baso # (Auto) 0.0 Immature Gran # (Auto) 0.15 H Absolute Nucleated RBC 0.00 Immature Gran % 1 H Nucleated RBC % 0 APTT 63.6 H D Sodium 137 Potassium 4.2 Chloride 95 L Carbon Dioxide 36.8 H Anion Gap 5 L BUN 27 H Creatinine 1.2 Estim Creat Clear Calc 104.9 eGFR > 60 BUN/Creatinine Ratio 23 H Glucose 174 H Calculated Osmolality 282 Calcium 7.9 L Corrected Calcium 8.6 Magnesium 1.7 Total Bilirubin 0.4 AST 29 ALT 12 Alkaline Phosphatase 160 H Total Protein 5.6 L Albumin 3.1 L Globulin 2.5 Albumin/Globulin Ratio 1.2 ABG Interpretation ABG results: 02/27/25 02/28/25 03/01/25 06:55 04:57 04:39 ABG pH 7.27 L 7.37 D 7.41 ABG pCO2 57 H 48 44 ABG pO2 101 78 L D 69 L ABG HCO3 26 28 H 28 H ABG O2 Saturation 98 95 93 ABG Base Excess -2 2 3 VBG pH VBG pCO2 VBG pO2 VBG Base Excess 03/01/25 03/01/25 03/02/25 13:15 14:52 04:25 ABG pH Cancelled 7.41 7.45 ABG pCO2 Cancelled 45 42 ABG pO2 Cancelled 53 L* 66 L ABG HCO3 Cancelled 28 H 29 H ABG O2 Saturation Cancelled 85 L 92 ABG Base Excess Cancelled 3 5 H VBG pH VBG pCO2 VBG pO2 VBG Base Excess 03/03/25 03/05/25 03/05/25 04:40 16:30 16:55 ABG pH 7.45 Cancelled 7.34 L D ABG pCO2 43 Cancelled 72 H* D ABG pO2 72 L Cancelled 83 ABG HCO3 30 H Cancelled 38 H ABG O2 Saturation 94 Cancelled 95 ABG Base Excess 5 H Cancelled 9 H VBG pH VBG pCO2 VBG pO2 VBG Base Excess 03/05/25 03/06/25 03/06/25 23:36 01:48 05:22 ABG pH 7.37 7.34 L 7.52 H D ABG pCO2 67 H 74 H* 47 D ABG pO2 150 H D 88 D 160 H D ABG HCO3 38 H 40 H 38 H ABG O2 Saturation 99 H 96 100 H ABG Base Excess 10 H 11 H 13 H VBG pH VBG pCO2 VBG pO2 VBG Base Excess 03/06/25 03/07/25 03/07/25 17:10 05:00 14:03 ABG pH 7.46 H ABG pCO2 53 H ABG pO2 65 L D ABG HCO3 38 H ABG O2 Saturation 93 ABG Base Excess 12 H VBG pH 7.50 7.52 VBG pCO2 50 47 VBG pO2 70 H 61 H VBG Base Excess 13 H 14 H 03/09/25 03/09/25 03/09/25 08:17 10:25 17:29 ABG pH 7.25 L D 7.29 L 7.29 L ABG pCO2 93 H* D 85 H* 88 H* ABG pO2 81 L 57 L* D 85 D ABG HCO3 41 H 40 H 43 H ABG O2 Saturation 95 89 L 97 ABG Base Excess 10 H 10 H 12 H VBG pH VBG pCO2 VBG pO2 VBG Base Excess 03/09/25 03/10/25 03/10/25 23:24 07:17 11:25 ABG pH 7.32 L 7.28 L 7.31 L ABG pCO2 78 H* D 90 H* D 81 H* ABG pO2 69 L 47 L* D 63 L ABG HCO3 40 H 43 H 41 H ABG O2 Saturation 94 80 L 93 ABG Base Excess 11 H 12 H 11 H VBG pH VBG pCO2 VBG pO2 VBG Base Excess 03/10/25 03/11/25 03/12/25 16:56 04:19 04:42 ABG pH 7.40 7.48 H 7.43 ABG pCO2 66 H D 54 H D 59 H ABG pO2 68 L 67 L 77 L ABG HCO3 41 H 40 H 39 H ABG O2 Saturation 94 94 96 ABG Base Excess 13 H 15 H 12 H VBG pH VBG pCO2 VBG pO2 VBG Base Excess 03/13/25 03/14/25 03/15/25 04:32 04:25 04:37 ABG pH 7.47 H 7.46 H 7.41 ABG pCO2 53 H 50 H 56 H ABG pO2 60 L 70 L 69 L ABG HCO3 38 H 36 H 35 H ABG O2 Saturation 93 95 95 ABG Base Excess 13 H 10 H 9 H VBG pH VBG pCO2 VBG pO2 VBG Base Excess 03/16/25 03/16/25 03/17/25 04:54 09:53 04:35 ABG pH 7.45 7.48 H 7.47 H ABG pCO2 51 H 49 H 53 H ABG pO2 68 L 34 L* D 87 D ABG HCO3 35 H 37 H 38 H ABG O2 Saturation 95 67 L 97 ABG Base Excess 10 H 12 H 13 H VBG pH VBG pCO2 VBG pO2 VBG Base Excess 03/18/25 03/19/25 03/26/25 04:26 05:00 08:20 ABG pH 7.44 7.45 7.46 H ABG pCO2 57 H 55 H 54 H ABG pO2 107 D 73 L D 79 L ABG HCO3 38 H 38 H 38 H ABG O2 Saturation 99 H 96 97 ABG Base Excess 12 H 12 H 12 H VBG pH VBG pCO2 VBG pO2 VBG Base Excess Quality Measures Quality Measures VTE therapy and sepsis Current suspected stage: ruled out Possible source: pulmonary Blood cultures ordered: completed in ED Antibiotic ordered: Yes Advance care planning discussed with:: patient and other (Parents) Assessment & Plan Assessment Current Active Medications: Generic Name Dose Route Start Last Admin Trade Name Freq PRN Reason Stop Dose Admin Amiodarone HCl 200 mg 04/03/25 09:00 04/06/25 08:24 Amiodarone Hcl 200 Mg Tablet NG 05/03/25 08:59 200 mg QDAY KOURTNEY Administration Amlodipine Besylate 10 mg 03/31/25 07:30 04/06/25 08:24 Amlodipine Besylate 5 Mg Tablet NG 04/19/25 07:29 10 mg DAILY KOURTNEY Administration Ascorbic Acid 500 mg 03/27/25 12:00 04/06/25 08:24 Ascorbic Acid 250 Mg Tablet NG 04/26/25 11:59 500 mg BID KOURTNEY Administration Bumetanide 2 mg 04/02/25 09:00 04/06/25 08:23 Bumetanide 0.5 Mg Tablet PO 05/02/25 08:59 2 mg QDAY KOURTNEY Administration Bumetanide 1 mg 04/05/25 21:00 04/05/25 21:08 Bumetanide Inj 0.25 Mg/Ml Vial 4 Ml IVP 05/05/25 20:59 1 mg QPM KOURTNEY Administration Collagenase 0 gm 04/01/25 11:30 04/06/25 08:25 Collagenase Oint 30 Gm Tube TOP 05/01/25 11:29 1 applicatio DAILY KOURTNEY Administration Cyclobenzaprine HCl 5 mg 03/26/25 08:25 04/03/25 12:18 Cyclobenzaprine 5 Mg Tablet PO 04/25/25 08:24 5 mg TID PRN Administration MUSCLE SPASMS Protocol Heparin Sodium/Dextrose 25,000 unit in 250 mls @ 18 mls/hr 04/01/25 16:45 04/06/25 09:51 Heparin In D5w Ivpb IV 04/15/25 16:44 12.96 units/kg/hr .[id number] KOURTNEY 26.024 mls/hr Titration Protocol 8.964 UNITS/KG/HR Metronidazole 500 mg in 100 mls @ 200 mls/hr 04/02/25 15:51 04/06/25 05:17 Flagyl 500 Mg Iv IV 04/09/25 15:50 200 mls/hr Q8HR KOURTNEY Administration Cefepime HCl 2 gm/ Sodium 50 mls @ 100 mls/hr 04/04/25 14:00 04/06/25 05:12 Chloride IV 04/11/25 13:59 100 mls/hr Q8HR KOURTNEY Administration Insulin Glargine 38 unit 03/30/25 09:00 04/06/25 08:22 Insulin Glargine (Lantus) 5 Unit/0.05 Ml (Per 5 Units) SC 04/29/25 08:59 38 unit QDAY KOURTNEY Administration Insulin Human Lispro 0 unit 03/25/25 12:00 04/06/25 11:40 Insulin Lispro (Admelog) 1 Unit/0.01 Ml Unit SC 04/24/25 11:59 2 unit Q6HR KOURTNEY Administration Protocol Lansoprazole 30 mg 03/23/25 09:30 04/06/25 08:24 Lansoprazole 30 Mg Tab.Rap.Dr CHAPIN 04/21/25 08:59 30 mg QDAY KOURTNEY Administration Multivitamins/Minerals 15 ml 03/27/25 12:00 04/06/25 08:23 Multivitamin 15 Ml Udc 04/26/25 11:59 15 ml QDAY KOURTNEY Administration Zinc Sulfate 220 mg 03/27/25 12:00 04/06/25 08:24 Zinc Sulfate 220 Mg Capsule 04/10/25 11:59 220 mg QDAY KOURTNEY Administration Plan Assessment 64-year-old male with past medical history of DM2, hypertension, A-fib, and Jehova's witness was admitted to the ICU on 02/27/2025 for shock and acute hypoxic respiratory failure. Initiating transfer for higher level of care at this time for Jejunostomy. #Acute on Chronic Hypoxic Hypercapnic Respiratory Failure #Aspiration Pneumonia #Obesity hypoventilation syndrome and obstructive sleep apnea #Dysphagia #Tracheostomy At this point, we are currently pending approval from [facility] Patient's bariatric surgeon was Dr. Wetzel at [facility] Patient will need to have NG tube replaced soon as we are approaching 3-week jesus [place] [facility] [place] try to reach out to Dr. Mena for C-arm guided fluoroscopic swallow study at bedside. Currently more than 2 weeks since patient NG tube was placed, we will reach out to GI for recommendations. Plan: ? Pending Transfer to higher level of care for jejunostomy with GI ? 2 Sánchez feedings with 180 cc/2hr water flushes ? Continue cefepime IV 2 g every 8 hours and Flagyl 500 mg every 8 hours IV ? Blow-By as tolerated ? Will reach out to Dr. Mena for possible bedside C-arm guided fluoroscopic swallow study at bedside as per speech therapy recommendations. #Right internal jugular venous thrombosis Venous duplex was Positive for occulsive thrombus in RIJ Plan: ? Heparin Drip per protocol (04/01- ? Continuing to hold Xarleto #Right arm swelling Today patient's right arm appeared more swollen than his left, ordered right upper extremity duplex ultrasound to rule out extension of RIJ thrombus. Will consider hematology consult based on results of ultrasound. Plan: ? Right upper extremity duplex ultrasound ordered #Right diastolic CHF, improved Will give patient additional diuresis today as patient appears to be overloaded Patient sodium was 134 today Plan: ? Cardiology consulted, appreciate recs ? Continue strict daily body weight ? Continue Bumex 2 g daily, will add Bumex 1 g at night ? Daily weights ? Strict I&O #Hx of A-fib [id number] score of 3 points indicating 3.2% risk of stroke per year HAS-BLED: 0 Plan: ? Heparin drip ? Amio 200 mg QDAY NG ? Potassium and magnesium above 4 and 2 respectively ? Telemetry #Decubitus ulcer Not requiring surgical intervention at this time Plan: ? Monitor for signs of infection ? Wound care ? Wound care vitamins including zinc, multivitamin and vitamin C #Morbid obesity #DM2 A1C 7.6 on 03/05/2025 Patient has a BMI of 79.5 Plan: ? ISS scale 2 ? Hypoglycemia protocol ordered ? 38 units of Lantus #Normocytic Anemia Likely secondary to anemia of chronic disease given normal MCV. No acute intervention, continue to monitor #Community-acquired pneumonia, Enterobacter Cloacoe #Leukocytosis, resolved #Enterobacter cloacoe pneumonia, resolved. #Acute encephalopathy, resolved #KENIA resolved #Hypokalemia resolved #Hypernatremia resolved #Metabolic alkalosis resolved #Health Maintenance Disposition: Pending transfer to tertiary center for higher level of care DVT prophylaxis: Heparin Drip GI prophylaxis: Protonix Diet: NG tube feeds with 2Cal with 180 cc every 2 hours for water flushes CODE STATUS: Full Plan of care discussed with Attending Dr. Karolina Parra MD PGY 1 Disclaimer: This note was dictated by speech recognition. Minor errors in cake mixer may be present due to voice recognition software. Attending Provider Attestation/Addendum Tomorrow and remain on vancomycin I have discussed and was present for the essential components of the history, physical examination, diagnosis, and treatment plan with the resident. I agree with the patient's care as documented by the resident and amended herein by me. Arnol Turcios, DO. Patient seen and evaluated this AM. No acute events overnight, vital signs stable, patient afebrile in the a.m., patient's right arm more edematous today, repeat ultrasound of the right upper extremity pending to evaluate for worsening DVT. Heparin drip ongoing, patient also on cefepime and Flagyl for possible aspiration pneumonia versus ventilator associated pneumonia. Transfer to [facility] denied for IR guided versus surgical placement of J-tube, I did request to speak with the medical team down there, transfer center working on that request. Gastroenterology cannot place J-tube due to complexity of past Diego-en-Y, attempt was made on 03/16 and was determined during procedure that the patient had a very small gastric pouch with remanent gastritis in the setting of Diego-en-Y gastrojejunostomy. Gastroenterology determined that PEG placement was not possible in this clinical setting and recommended IR placement of jejunostomy whether here or at tertiary center. Patient apparently exceeds the weight limit of the table down in IR and due to complexity, IR has deferred to tertiary center. General surgery also agrees with transfer. PICC line placement also failed by IR multiple times, refused to attempt another time. Patient continues to have NG tube in place however this is been in place nearly 3 weeks. Cardiology also consulted for the patient's A-fib and chronic systolic and diastolic heart failure, recommends continuing anticoagulation for now, patient rate controlled at present. Appreciate all specialist recommendations. Although this document has been carefully reviewed, there may still be some phonetic and other typographical errors. These errors are purely grammatical due to imperfections in the software program and should not be construed in any way to compromise the substance of the patient's medical care during this visit.
--- NOTE | 2025-04-06 14:54 | ESPR_ITS ---
RE: KOFI CRAWFORD : 1960 DATE OF SERVICE: 04/06/2025 SUBJECTIVE: Kofi Crawford is doing about the same. He still complains of right- sided neck pain, not having chest pain or shortness of breath. He is still bedbound, morbidly obese male. Alert, awake, and in no acute distress. Complains of right-sided pain. He has right internal jugular vein thrombosis, requiring IV heparin and he also has multiple other issues including history of bariatric surgery and PEG tube could not be placed, apparently getting transferred to tertiary care center because of multiple issues. His exam clinically is still about the same. He does not complain of any shortness of breath, but he has some pain in the right side of the neck. OBJECTIVE: Vital Signs: Blood pressure 130/80, pulse 83, temperature normal. Neck: Supple. Lungs: Decreased breath sounds. Heart: S1 and S2 irregular. Abdomen: Morbidly obese, soft, and abdominal wall edema. Extremities: Also, chronic edema. /rectal: Not performed. LABORATORY DATA: Hemoglobin 10, hematocrit 31, stable, white count normal. Chemistry panel shows creatinine is 1.2, BUN 27. Continues to be on oral diuretics. IMPRESSION: 1. Chronic systolic and diastolic heart failure. 2. Chronic atrial fibrillation. 3. Right internal jugular vein thrombosis. 4. Morbid obesity, BMI 70+. 5. History of gastric bypass surgery. 6. Tracheostomy and ventilator dependent. RECOMMENDATIONS: Continue IV heparin for now for internal jugular vein thrombosis and monitor for atrial fibrillation, also rate controlled well for now. DT: 12:29:03 TT: 13:54:00 Ref: [id number] - TID: [id number]
[2025-04-06 17:14] LABS: Partial Thromboplastin Time 46.2 Seconds (22.0-36.0)
[2025-04-06] MEDS: HEPARIN SOD INJ 5000 UNIT/ML VIAL 4000 UNIT IVP (17:45)
--- NOTE | 2025-04-06 19:05 | ESPR_ITS ---
Documentation for date of: 04/06/25 Subjective Subjective Interval history: Still working on the possible transfer Exam Vital Signs Temp Pulse Resp BP Pulse Ox O2 Del Method O2 Flow Rate 98.6 F 56 L 18 111/74 99 Mechanical Ventilation 12 04/06/25 16:00 04/06/25 18:37 04/06/25 16:00 04/06/25 16:00 04/06/25 18:37 04/06/25 16:00 04/06/25 16:00 FiO2 50 04/06/25 18:37 Objective Labs 04/06/25 07:32 04/06/25 07:32 Labs: Laboratory Results - last 24 hr 04/05/25 04/06/25 04/06/25 19:10 01:21 07:32 WBC 10.4 RBC 3.59 L Hgb 10.1 L Hct 31.9 L MCV 89 MCH 28.1 MCHC 31.7 RDW Std Deviation 49.8 H Plt Count 284 Neut % (Auto) 70 Lymph % (Auto) 13 [place] % (Auto) 13 H Eos % (Auto) 2 Baso % (Auto) 0 Neut # (Auto) 7.3 Lymph # (Auto) 1.4 [place] # (Auto) 1.4 H Eos # (Auto) 0.2 Baso # (Auto) 0.0 Immature Gran # (Auto) 0.15 H Absolute Nucleated RBC 0.00 Immature Gran % 1 H Nucleated RBC % 0 APTT 41.0 H D 76.3 H D 63.6 H D Sodium 137 Potassium 4.2 Chloride 95 L Carbon Dioxide 36.8 H Anion Gap 5 L BUN 27 H Creatinine 1.2 Estim Creat Clear Calc 104.9 eGFR > 60 BUN/Creatinine Ratio 23 H Glucose 174 H Calculated Osmolality 282 Calcium 7.9 L Corrected Calcium 8.6 Magnesium 1.7 Total Bilirubin 0.4 AST 29 ALT 12 Alkaline Phosphatase 160 H Total Protein 5.6 L Albumin 3.1 L Globulin 2.5 Albumin/Globulin Ratio 1.2 04/06/25 16:11 WBC RBC Hgb Hct MCV MCH MCHC RDW Std Deviation Plt Count Neut % (Auto) Lymph % (Auto) [place] % (Auto) Eos % (Auto) Baso % (Auto) Neut # (Auto) Lymph # (Auto) [place] # (Auto) Eos # (Auto) Baso # (Auto) Immature Gran # (Auto) Absolute Nucleated RBC Immature Gran % Nucleated RBC % APTT 46.2 H D Sodium Potassium Chloride Carbon Dioxide Anion Gap BUN Creatinine Estim Creat Clear Calc eGFR BUN/Creatinine Ratio Glucose Calculated Osmolality Calcium Corrected Calcium Magnesium Total Bilirubin AST ALT Alkaline Phosphatase Total Protein Albumin Globulin Albumin/Globulin Ratio Impressions Impression: Failure to thrive Working with the [facility] team to get him there I have a plan call with the patient registrar ABG Interpretation ABG results: 02/27/25 02/28/25 03/01/25 06:55 04:57 04:39 ABG pH 7.27 L 7.37 D 7.41 ABG pCO2 57 H 48 44 ABG pO2 101 78 L D 69 L ABG HCO3 26 28 H 28 H ABG O2 Saturation 98 95 93 ABG Base Excess -2 2 3 VBG pH VBG pCO2 VBG pO2 VBG Base Excess 03/01/25 03/01/25 03/02/25 13:15 14:52 04:25 ABG pH Cancelled 7.41 7.45 ABG pCO2 Cancelled 45 42 ABG pO2 Cancelled 53 L* 66 L ABG HCO3 Cancelled 28 H 29 H ABG O2 Saturation Cancelled 85 L 92 ABG Base Excess Cancelled 3 5 H VBG pH VBG pCO2 VBG pO2 VBG Base Excess 03/03/25 03/05/25 03/05/25 04:40 16:30 16:55 ABG pH 7.45 Cancelled 7.34 L D ABG pCO2 43 Cancelled 72 H* D ABG pO2 72 L Cancelled 83 ABG HCO3 30 H Cancelled 38 H ABG O2 Saturation 94 Cancelled 95 ABG Base Excess 5 H Cancelled 9 H VBG pH VBG pCO2 VBG pO2 VBG Base Excess 03/05/25 03/06/25 03/06/25 23:36 01:48 05:22 ABG pH 7.37 7.34 L 7.52 H D ABG pCO2 67 H 74 H* 47 D ABG pO2 150 H D 88 D 160 H D ABG HCO3 38 H 40 H 38 H ABG O2 Saturation 99 H 96 100 H ABG Base Excess 10 H 11 H 13 H VBG pH VBG pCO2 VBG pO2 VBG Base Excess 03/06/25 03/07/25 03/07/25 17:10 05:00 14:03 ABG pH 7.46 H ABG pCO2 53 H ABG pO2 65 L D ABG HCO3 38 H ABG O2 Saturation 93 ABG Base Excess 12 H VBG pH 7.50 7.52 VBG pCO2 50 47 VBG pO2 70 H 61 H VBG Base Excess 13 H 14 H 03/09/25 03/09/25 03/09/25 08:17 10:25 17:29 ABG pH 7.25 L D 7.29 L 7.29 L ABG pCO2 93 H* D 85 H* 88 H* ABG pO2 81 L 57 L* D 85 D ABG HCO3 41 H 40 H 43 H ABG O2 Saturation 95 89 L 97 ABG Base Excess 10 H 10 H 12 H VBG pH VBG pCO2 VBG pO2 VBG Base Excess 03/09/25 03/10/25 03/10/25 23:24 07:17 11:25 ABG pH 7.32 L 7.28 L 7.31 L ABG pCO2 78 H* D 90 H* D 81 H* ABG pO2 69 L 47 L* D 63 L ABG HCO3 40 H 43 H 41 H ABG O2 Saturation 94 80 L 93 ABG Base Excess 11 H 12 H 11 H VBG pH VBG pCO2 VBG pO2 VBG Base Excess 03/10/25 03/11/25 03/12/25 16:56 04:19 04:42 ABG pH 7.40 7.48 H 7.43 ABG pCO2 66 H D 54 H D 59 H ABG pO2 68 L 67 L 77 L ABG HCO3 41 H 40 H 39 H ABG O2 Saturation 94 94 96 ABG Base Excess 13 H 15 H 12 H VBG pH VBG pCO2 VBG pO2 VBG Base Excess 03/13/25 03/14/25 03/15/25 04:32 04:25 04:37 ABG pH 7.47 H 7.46 H 7.41 ABG pCO2 53 H 50 H 56 H ABG pO2 60 L 70 L 69 L ABG HCO3 38 H 36 H 35 H ABG O2 Saturation 93 95 95 ABG Base Excess 13 H 10 H 9 H VBG pH VBG pCO2 VBG pO2 VBG Base Excess 03/16/25 03/16/25 03/17/25 04:54 09:53 04:35 ABG pH 7.45 7.48 H 7.47 H ABG pCO2 51 H 49 H 53 H ABG pO2 68 L 34 L* D 87 D ABG HCO3 35 H 37 H 38 H ABG O2 Saturation 95 67 L 97 ABG Base Excess 10 H 12 H 13 H VBG pH VBG pCO2 VBG pO2 VBG Base Excess 03/18/25 03/19/25 03/26/25 04:26 05:00 08:20 ABG pH 7.44 7.45 7.46 H ABG pCO2 57 H 55 H 54 H ABG pO2 107 D 73 L D 79 L ABG HCO3 38 H 38 H 38 H ABG O2 Saturation 99 H 96 97 ABG Base Excess 12 H 12 H 12 H VBG pH VBG pCO2 VBG pO2 VBG Base Excess Assessment & Plan A&P Narrative 64-year-old male with significant past medical history of hypertension, diabetes mellitus, A-fib was admitted to the ICU on 02/27/2025 after coming in with altered mental status and shortness of breath, intubated for acute hypoxic respiratory failure and had suspected obesity hypoventilation syndrome/obstructive sleep apnea/pneumonia and acute kidney injury. He was extubated on 03/03 and downgraded then re-intubated on 03/06 due to confusion and tachypneia. He was then extubated and downgraded to the floor on 03/07. On 03/10, patient again had decreased mentation on the BiPAP so was reintubated and upgraded. Cardiology has been consulted for suspected heart failure. #Right congestive heart failure with preserved EF. #Severe BASIA/OHS. #Hypernatremia. Echo on this admission showed poor quality images secondary to the patient's body habitus so was a technically limited study. Suspect chronic right heart failure in the setting of chronic obesity hypoventilation syndrome and obstructive sleep apnea. Currently appears to be more pulmonary component to respiratory failure than cardiac. Requiring ventilation support. -Echo 02/27/25: IVC appears to be dilated and also estimated RVSP also appears to be at least moderately elevated at 55 mmHg. 03/14/25: Will hold dirutics for now , he was given IV fluids yesterday. 03/15/25 : [place] catheter was placed by ICU team which showed PA pressure of more than 30s and wedge pressure was also high . started him on bumex drip . will continue the albumin . he is getting his peg tube today 03/16/25: ICU team tried another [place] catheter today which showed RA pressure of 25, PA pressure of 38, PCWP of 23. Plan is to continue Bumex for him. Cr stable at 2.5 03/17/2025: Net fluid balance -3350 cc. ICU team held Bumex due to significant electrolyte abnormalities, potassium 2.7. Once repleted Bumex drip will be resumed. Continue current management and monitor patient. 03/18/2025: net fluid balance -1650 , he received 1 dose of diamox yesterday. will continue to diures, he is off ventillor in blowby with PRN ventillator when he gets tired. 03/19/2025: no acute overnight event.Balance of -950 . ICU team put a swan catheter which showed he is adequately diressed for now, so bumex on hold for now. pending pegtube placement, its been difficult to do the procedure consedering his Rouxy history. Plan: 03/20/2025: Will hold dirutics for now, he was given IV LR and FWF via NG for hypernatremia. 03/21/2025: no acute overnight event. free water flushes increase today for hypernatremia . Xarelto resumed . bumex on hold ,Dr Doty recommending jejunostomy placement. #Atrial fibrillation, rate controlled. Patient notes positive history of afib. He had previously been on metoprolol succinate 100 mg BID. Currently appears rate-controlled in the 100s. CHADS-VASc score 4 Plan: - Metoprolol on hold in setting of right heart failure . -Resume Xarelto. -Continue amiodarone 200 mg qday. -Keep potassium >4.0 and mag >2.0. Rest of conditions to continue current management per primary team: #Acute hypoxic respiratory failure s/p tracheostomy. #Morbid obesity. #Community acquired pneumonia. #Elevated LFTs, resolved. #Hyperbilirubinemia, resolved. #History of type 2 diabetes. #Lactic acidosis, resolved. #KENIA on CKD. 03/22/2025: Patient has tracheostomy inplace and is unable to communicate much Telemetry reviewed and rest of the vital signs including the heart rate appears to be stable. Labs showed that the patient still continues to have hyponatremia at 150 and also has elevated creatinine at 2.6 and a BUN of 66. Patient is on renal water flushes for the hyponatremia and creatinine continues to improve and baseline creatinine appears to be around 2.0 Recommend to continue with free water flushes for now. Patient is morbidly obese with multiple comorbidities as mentioned below and overall prognosis appears to be poor Primary team to discuss with the family regarding goals of care. Management of rest of the medical conditions as per primary team and other consultants. Thank you for the consult and allowing me to participate in the care of the patient. Cardiology will continue to follow. Kobe Barahona M.D. Interventional Cardiology Time Spent With Patient Time: Total time spent is greater than 50% in coordination of care (as documented) at patient's floor/unit and/or counseling patient:
[2025-04-06] MEDS: BUMETANIDE INJ 0.25 MG/ML VIAL 4 ML 1 MG IVP (21:38)
[2025-04-07] VITALS (17 sets, daily range): BP systolic 114–135; BP diastolic 76–94; PULSE 52–108; RESP 15–42; TEMP 36–36.6; O2SAT 94–100; BMI 71.4
[2025-04-07 01:29] LABS: Partial Thromboplastin Time 127.8 Seconds (22.0-36.0)
--- NOTE | 2025-04-07 01:40 | PC.NURSE ---
called Dr. Ahumada regarding patient's critical lab PTT of 127.8, per protocol to stop infusion for 60 mins, to decrease rate by 3 units/kg/hr then restart infusion, order stat PTT in 6 hours. Clarified orders with MD to follow protocol.
[2025-04-07] MEDS: Heparin/D5w 25K 250 ML Ivpb 25,000 UNIT/250 ML BAG 24.016 UNIT IV ×3 (02:31→23:59)
[2025-04-07] MEDS: CEFEPIME INJ 2 GM in SODIUM CHLORIDE 0.9% (Popper) 50 ML IV ×3 (05:12→21:07)
[2025-04-07] MEDS: metroNIDAZOLE/NS 500 MG IVPB 500 MG/100 ML BAG 200 MG IV ×3 (05:15→21:06)
[2025-04-07 06:01] LABS: Basophils # (Auto) 0.1 Thou/mm3 (0.0-0.2); Basophils % (Auto) 1 % (0-2.5); Eosinophils # (Auto) 0.3 Thou/mm3 (0.0-0.5); Eosinophils % (Auto) 3 % (0-10); Hematocrit 33.9 % (41.0-53.0); Hemoglobin 10.6 g/dL (13.5-16.0); Immature Granulocytes % (Auto) 2 % (0-0); Immature Granulocytes Auto 0.19 Thou/mm3 (0.00-0.00); Lymphocytes # (Auto) 1.6 Thou/mm3 (1.0-4.8); Lymphocytes % (Auto) 15 % (10-50); Mean Corpuscular HGB Conc 31.3 g/dl (31.0-37.0); Mean Corpuscular Volume 89 fL (80-100); Monocytes # (Auto) 1.4 Thou/mm3 (0.0-0.8); Monocytes % (Auto) 13 % (0-12); Neutrophils # (Auto) 7.2 Thou/mm3 (1.8-7.7); Neutrophils % (Auto) 67 % (37-80); Nucleated Red Blood Cell % 0 /100 WBC (0); Platelet Count 299 Thou/mm3 (140-440); RDW Standard Deviation 50.5 fL (35.1-43.9); Red Blood Count 3.79 Miln/mm3 (4.50-5.90); White Blood Count 10.6 Thou/mm3 (3.8-10.6)
[2025-04-07 06:18] LABS: Alanine Aminotransferase 12 U/L (10-49); Albumin, Serum 3.1 gm/dL (3.4-4.8); Albumin/Globulin Ratio 1.2 (1.2-2.2); Alkaline Phosphatase 160 U/L (46-116); Anion Gap 7 (7-16); Aspartate Amino Transferase 28 U/L (0-34); BUN/Creatinine Ratio 23 Ratio (12-20); Bilirubin,Total 0.4 mg/dL (0.3-1.2); Blood Urea Nitrogen 27 mg/dL (9-23); Calcium (Corrected) 8.7 mg/dL (8.5-10.1); Carbon Dioxide 37.3 mMol/L (20.0-31.0); Chloride 93 mMol/L (98-107); Creatinine (Component) 1.2 mg/dL (0.6-1.3); Estimated Creatinine Clearance 104.8 mL/min (>60); Globulin 2.6 gm/dL (2.3-3.5); Glucose 147 mg/dL (74-106); Magnesium 1.6 mg/dL (1.6-2.6); Osmolality,Calculated 281 (275-295); Sodium 137 mMol/L (136-145); Total Protein 5.7 gm/dL (5.7-8.2); eGFR > 60 See Note
[2025-04-07 08:47] LABS: Partial Thromboplastin Time 74.9 Seconds (22.0-36.0)
[2025-04-07] MEDS: LANSOPRAZOLE 30 MG TAB.RAP.DR NG (09:23)
[2025-04-07] MEDS: ZINC SULFATE 220 MG CAPSULE NG (09:23)
[2025-04-07] MEDS: MULTIVITAMIN 15 ML UDC NG (09:23)
[2025-04-07] MEDS: ASCORBIC ACID 250 MG TABLET 500 MG NG ×2 (09:23→20:55)
[2025-04-07] MEDS: amLODIPine BESYLATE 5 MG TABLET 10 MG NG (09:23)
[2025-04-07] MEDS: AMIODARONE HCL 200 MG TABLET NG (09:24)
[2025-04-07] MEDS: INSULIN GLARGINE (Lantus) 5 UNIT/0.05 ML (PER 5 UNITS) 38 UNIT SC (09:25)
[2025-04-07] MEDS: COLLAGENASE OINT 30 GM TUBE TOP (09:25)
[2025-04-07] MEDS: BUMETANIDE 0.5 MG TABLET 2 MG PO (09:29)
--- NOTE | 2025-04-07 09:42 | PD.IMPROG ---
Documentation for date of: 04/07/25 Subjective Subjective Interval history: Working with my contacts at [facility] Still no luck Exam Vital Signs Temp Pulse Resp BP Pulse Ox O2 Del Method O2 Flow Rate 97.9 F 98 16 114/83 97 Mechanical Ventilation 12 04/07/25 07:43 04/07/25 09:29 04/07/25 07:43 04/07/25 09:29 04/07/25 07:43 04/07/25 07:43 04/07/25 07:43 FiO2 50 04/07/25 07:43 Objective Labs 04/08/25 08:10 04/08/25 08:10 Labs: Laboratory Results - last 24 hr 04/06/25 04/06/25 04/07/25 16:11 23:53 05:29 WBC 10.6 RBC 3.79 L Hgb 10.6 L Hct 33.9 L MCV 89 MCH 28.0 MCHC 31.3 RDW Std Deviation 50.5 H Plt Count 299 Neut % (Auto) 67 Lymph % (Auto) 15 [place] % (Auto) 13 H Eos % (Auto) 3 Baso % (Auto) 1 Neut # (Auto) 7.2 Lymph # (Auto) 1.6 [place] # (Auto) 1.4 H Eos # (Auto) 0.3 Baso # (Auto) 0.1 Immature Gran # (Auto) 0.19 H Absolute Nucleated RBC 0.00 Immature Gran % 2 H Nucleated RBC % 0 APTT 46.2 H D 127.8 H* D Sodium 137 Potassium 4.0 Chloride 93 L Carbon Dioxide 37.3 H Anion Gap 7 BUN 27 H Creatinine 1.2 Estim Creat Clear Calc 104.8 eGFR > 60 BUN/Creatinine Ratio 23 H Glucose 147 H Calculated Osmolality 281 Calcium 8.0 L Corrected Calcium 8.7 Magnesium 1.6 Total Bilirubin 0.4 AST 28 ALT 12 Alkaline Phosphatase 160 H Total Protein 5.7 Albumin 3.1 L Globulin 2.6 Albumin/Globulin Ratio 1.2 04/07/25 08:15 WBC RBC Hgb Hct MCV MCH MCHC RDW Std Deviation Plt Count Neut % (Auto) Lymph % (Auto) [place] % (Auto) Eos % (Auto) Baso % (Auto) Neut # (Auto) Lymph # (Auto) [place] # (Auto) Eos # (Auto) Baso # (Auto) Immature Gran # (Auto) Absolute Nucleated RBC Immature Gran % Nucleated RBC % APTT 74.9 H D Sodium Potassium Chloride Carbon Dioxide Anion Gap BUN Creatinine Estim Creat Clear Calc eGFR BUN/Creatinine Ratio Glucose Calculated Osmolality Calcium Corrected Calcium Magnesium Total Bilirubin AST ALT Alkaline Phosphatase Total Protein Albumin Globulin Albumin/Globulin Ratio Impressions Impression: Failure to thrive Continue current management ABG Interpretation ABG results: 02/27/25 02/28/25 03/01/25 06:55 04:57 04:39 ABG pH 7.27 L 7.37 D 7.41 ABG pCO2 57 H 48 44 ABG pO2 101 78 L D 69 L ABG HCO3 26 28 H 28 H ABG O2 Saturation 98 95 93 ABG Base Excess -2 2 3 VBG pH VBG pCO2 VBG pO2 VBG Base Excess 03/01/25 03/01/25 03/02/25 13:15 14:52 04:25 ABG pH Cancelled 7.41 7.45 ABG pCO2 Cancelled 45 42 ABG pO2 Cancelled 53 L* 66 L ABG HCO3 Cancelled 28 H 29 H ABG O2 Saturation Cancelled 85 L 92 ABG Base Excess Cancelled 3 5 H VBG pH VBG pCO2 VBG pO2 VBG Base Excess 03/03/25 03/05/25 03/05/25 04:40 16:30 16:55 ABG pH 7.45 Cancelled 7.34 L D ABG pCO2 43 Cancelled 72 H* D ABG pO2 72 L Cancelled 83 ABG HCO3 30 H Cancelled 38 H ABG O2 Saturation 94 Cancelled 95 ABG Base Excess 5 H Cancelled 9 H VBG pH VBG pCO2 VBG pO2 VBG Base Excess 03/05/25 03/06/25 03/06/25 23:36 01:48 05:22 ABG pH 7.37 7.34 L 7.52 H D ABG pCO2 67 H 74 H* 47 D ABG pO2 150 H D 88 D 160 H D ABG HCO3 38 H 40 H 38 H ABG O2 Saturation 99 H 96 100 H ABG Base Excess 10 H 11 H 13 H VBG pH VBG pCO2 VBG pO2 VBG Base Excess 03/06/25 03/07/25 03/07/25 17:10 05:00 14:03 ABG pH 7.46 H ABG pCO2 53 H ABG pO2 65 L D ABG HCO3 38 H ABG O2 Saturation 93 ABG Base Excess 12 H VBG pH 7.50 7.52 VBG pCO2 50 47 VBG pO2 70 H 61 H VBG Base Excess 13 H 14 H 03/09/25 03/09/25 03/09/25 08:17 10:25 17:29 ABG pH 7.25 L D 7.29 L 7.29 L ABG pCO2 93 H* D 85 H* 88 H* ABG pO2 81 L 57 L* D 85 D ABG HCO3 41 H 40 H 43 H ABG O2 Saturation 95 89 L 97 ABG Base Excess 10 H 10 H 12 H VBG pH VBG pCO2 VBG pO2 VBG Base Excess 03/09/25 03/10/25 03/10/25 23:24 07:17 11:25 ABG pH 7.32 L 7.28 L 7.31 L ABG pCO2 78 H* D 90 H* D 81 H* ABG pO2 69 L 47 L* D 63 L ABG HCO3 40 H 43 H 41 H ABG O2 Saturation 94 80 L 93 ABG Base Excess 11 H 12 H 11 H VBG pH VBG pCO2 VBG pO2 VBG Base Excess 03/10/25 03/11/25 03/12/25 16:56 04:19 04:42 ABG pH 7.40 7.48 H 7.43 ABG pCO2 66 H D 54 H D 59 H ABG pO2 68 L 67 L 77 L ABG HCO3 41 H 40 H 39 H ABG O2 Saturation 94 94 96 ABG Base Excess 13 H 15 H 12 H VBG pH VBG pCO2 VBG pO2 VBG Base Excess 03/13/25 03/14/25 03/15/25 04:32 04:25 04:37 ABG pH 7.47 H 7.46 H 7.41 ABG pCO2 53 H 50 H 56 H ABG pO2 60 L 70 L 69 L ABG HCO3 38 H 36 H 35 H ABG O2 Saturation 93 95 95 ABG Base Excess 13 H 10 H 9 H VBG pH VBG pCO2 VBG pO2 VBG Base Excess 03/16/25 03/16/25 03/17/25 04:54 09:53 04:35 ABG pH 7.45 7.48 H 7.47 H ABG pCO2 51 H 49 H 53 H ABG pO2 68 L 34 L* D 87 D ABG HCO3 35 H 37 H 38 H ABG O2 Saturation 95 67 L 97 ABG Base Excess 10 H 12 H 13 H VBG pH VBG pCO2 VBG pO2 VBG Base Excess 03/18/25 03/19/25 03/26/25 04:26 05:00 08:20 ABG pH 7.44 7.45 7.46 H ABG pCO2 57 H 55 H 54 H ABG pO2 107 D 73 L D 79 L ABG HCO3 38 H 38 H 38 H ABG O2 Saturation 99 H 96 97 ABG Base Excess 12 H 12 H 12 H VBG pH VBG pCO2 VBG pO2 VBG Base Excess Assessment & Plan A&P Narrative 64-year-old male with significant past medical history of hypertension, diabetes mellitus, A-fib was admitted to the ICU on 02/27/2025 after coming in with altered mental status and shortness of breath, intubated for acute hypoxic respiratory failure and had suspected obesity hypoventilation syndrome/obstructive sleep apnea/pneumonia and acute kidney injury. He was extubated on 03/03 and downgraded then re-intubated on 03/06 due to confusion and tachypneia. He was then extubated and downgraded to the floor on 03/07. On 03/10, patient again had decreased mentation on the BiPAP so was reintubated and upgraded. Cardiology has been consulted for suspected heart failure. #Right congestive heart failure with preserved EF. #Severe BASIA/OHS. #Hypernatremia. Echo on this admission showed poor quality images secondary to the patient's body habitus so was a technically limited study. Suspect chronic right heart failure in the setting of chronic obesity hypoventilation syndrome and obstructive sleep apnea. Currently appears to be more pulmonary component to respiratory failure than cardiac. Requiring ventilation support. -Echo 02/27/25: IVC appears to be dilated and also estimated RVSP also appears to be at least moderately elevated at 55 mmHg. 03/14/25: Will hold dirutics for now , he was given IV fluids yesterday. 03/15/25 : [place] catheter was placed by ICU team which showed PA pressure of more than 30s and wedge pressure was also high . started him on bumex drip . will continue the albumin . he is getting his peg tube today 03/16/25: ICU team tried another [place] catheter today which showed RA pressure of 25, PA pressure of 38, PCWP of 23. Plan is to continue Bumex for him. Cr stable at 2.5 03/17/2025: Net fluid balance -3350 cc. ICU team held Bumex due to significant electrolyte abnormalities, potassium 2.7. Once repleted Bumex drip will be resumed. Continue current management and monitor patient. 03/18/2025: net fluid balance -1650 , he received 1 dose of diamox yesterday. will continue to diures, he is off ventillor in blowby with PRN ventillator when he gets tired. 03/19/2025: no acute overnight event.Balance of -950 . ICU team put a swan catheter which showed he is adequately diressed for now, so bumex on hold for now. pending pegtube placement, its been difficult to do the procedure consedering his Rouxy history. Plan: 03/20/2025: Will hold dirutics for now, he was given IV LR and FWF via NG for hypernatremia. 03/21/2025: no acute overnight event. free water flushes increase today for hypernatremia . Xarelto resumed . bumex on hold ,Dr Doty recommending jejunostomy placement. #Atrial fibrillation, rate controlled. Patient notes positive history of afib. He had previously been on metoprolol succinate 100 mg BID. Currently appears rate-controlled in the 100s. CHADS-VASc score 4 Plan: - Metoprolol on hold in setting of right heart failure . -Resume Xarelto. -Continue amiodarone 200 mg qday. -Keep potassium >4.0 and mag >2.0. Rest of conditions to continue current management per primary team: #Acute hypoxic respiratory failure s/p tracheostomy. #Morbid obesity. #Community acquired pneumonia. #Elevated LFTs, resolved. #Hyperbilirubinemia, resolved. #History of type 2 diabetes. #Lactic acidosis, resolved. #KENIA on CKD. 03/22/2025: Patient has tracheostomy inplace and is unable to communicate much Telemetry reviewed and rest of the vital signs including the heart rate appears to be stable. Labs showed that the patient still continues to have hyponatremia at 150 and also has elevated creatinine at 2.6 and a BUN of 66. Patient is on renal water flushes for the hyponatremia and creatinine continues to improve and baseline creatinine appears to be around 2.0 Recommend to continue with free water flushes for now. Patient is morbidly obese with multiple comorbidities as mentioned below and overall prognosis appears to be poor Primary team to discuss with the family regarding goals of care. Management of rest of the medical conditions as per primary team and other consultants. Thank you for the consult and allowing me to participate in the care of the patient. Cardiology will continue to follow. Kobe Barahona M.D. Interventional Cardiology Time Spent With Patient Time: Total time spent is greater than 50% in coordination of care (as documented) at patient's floor/unit and/or counseling patient:
--- NOTE | 2025-04-07 10:52 | PC.CC ---
Addendum entered by Bradley Greer RN 04/08/25 11:57: 1150- Spoke with Dr. Parra regarding patient transfer request this morning, informed him that there are still no accepting facilities at this time and that patient had been declined by [facility] yesterday. He stated we are still waiting to hear from our surgery team regarding this case, he stated he will provide an update later today. Addendum entered by Sebastian Dalton RN 04/07/25 15:11: 1417: received call from Lisa at [facility] and he stated pt is too big to fit in their MRI machine. Their maximum is 60.0 cm. They are unable to accept this patient. Dr. Bay updated. He will continue to follow up with Dr. Negron. 1323: shoulder to should measurements of 68.5 cm emailed to Lisa w/ [facility].. Addendum entered by Sebastian Dalton RN 04/07/25 13:10: [address] Bay with an update: Dr. Doty reached out to a colleague at [facility] and will look into the case, surgical intervention maybe an option. Dr. Bay consulted Dr. Negron, review and assessment will be conducted by the surgeon before making a decision. One barrier to clear is will the surgical bed accommodate patients weight. I provided an update tat [facility] is now reconsidering and is waiting for information they requested. Still waiting for bedside Nurse Augustin to provide the updated wt and the shoulder to shoulder measurement. Addendum entered by Sebastian Dalton RN 04/07/25 11:34: 1125: Received call from Lisa with [facility], she stated that they considering again. They are requesting shoulder to shoulder measurement in cm. I reiterated to Lisa that we are not able to perform the intervention required. Email link received from [facility]. I will provide information requested through the email provided. Original Note: spoke to Dr. Turcios about the peer to peer. He stated he did not receive a phone call from the doctor at [facility]. He stated he spoke to Dr. Doty and that Dr. Doty would be more appropriate to discuss the case with [facility] doctor. Called Dr. Doty, left message on VM. Waiting to hear back from Dr. Doty before proceeding to follow up with [facility] Jamie.
--- NOTE | 2025-04-07 11:00 | PD.RESPRO ---
Documentation for date of: 04/07/25 Subjective Subjective Interval history: Patient was seen and examined at bedside this AM. No acute exents overnight. Patient tolerating NG feeds, adequate urine output and mentation is at baseline. Patient nonverbal due to tracheostomy. Urine output not charted due to patient being in a diaper, sodium 135 and weight decreased to 196 kg from 206.3 kg. Currently on diuresis with Bumex 2 Mg every morning and 1 Mg every afternoon, free water flushes ongoing at 180 cc/h which is a deficit [his maintenance requirements 212 cc/h]. Today patient's right arm appeared more swollen than his left, duplex ultrasound was negative for extension of RIJ thrombus. Will hold free water flushes for today due to patient's arm being more edematous. 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 Doty still in the process of reaching out to [facility] [place], [place] if they will accept the patient for transfer. In the meantime he suggested we consult general surgery for a possible open gastrostomy tube placement. General surgeon, Dr. Jamil lucas sided about the above, she will check the body weight requirements for the OR bed and get back to us. Exam Vital Signs Temp Pulse Resp BP Pulse Ox O2 Del Method O2 Flow Rate 97.9 F 98 16 114/83 97 Mechanical Ventilation 12 04/07/25 07:43 04/07/25 09:29 04/07/25 07:43 04/07/25 09:29 04/07/25 07:43 04/07/25 07:43 04/07/25 07:43 FiO2 50 04/07/25 07:43 Narrative Exam General: AAOx3, in mild distress, severely morbidly obese HEENT: Dry mucous membranes, conjunctiva clear, EOMI, PERRLA, trachestomy Cardiovascular: Ejection systolic murmur, radial pulses +2 bilat, irregularly irregular, Pulmonary: On ventilation, Some crackles heard GI: No tenderness to light or deep palpitation, no guarding, rigidity, rebound tenderness or distension Extremities: Trace edema in lower extremities bilaterally, dorsalis pedis pulses +2 bilaterally. Right arm grossly edematous compared to the left, unable to palpate pulse due to edema but arm is cool to touch and no signs of peripheral cyanosis. Back: Decubitis ulcer present that appears to be foul smelling and necrotic, no bone visualization Neuro: AAOx3, no focal motor or sensory deficits in the UE or LE bilat Objective Labs 04/07/25 05:29 04/07/25 05:29 Labs: Laboratory Results - last 24 hr 04/06/25 04/06/25 04/07/25 16:11 23:53 05:29 WBC 10.6 RBC 3.79 L Hgb 10.6 L Hct 33.9 L MCV 89 MCH 28.0 MCHC 31.3 RDW Std Deviation 50.5 H Plt Count 299 Neut % (Auto) 67 Lymph % (Auto) 15 [place] % (Auto) 13 H Eos % (Auto) 3 Baso % (Auto) 1 Neut # (Auto) 7.2 Lymph # (Auto) 1.6 [place] # (Auto) 1.4 H Eos # (Auto) 0.3 Baso # (Auto) 0.1 Immature Gran # (Auto) 0.19 H Absolute Nucleated RBC 0.00 Immature Gran % 2 H Nucleated RBC % 0 APTT 46.2 H D 127.8 H* D Sodium 137 Potassium 4.0 Chloride 93 L Carbon Dioxide 37.3 H Anion Gap 7 BUN 27 H Creatinine 1.2 Estim Creat Clear Calc 104.8 eGFR > 60 BUN/Creatinine Ratio 23 H Glucose 147 H Calculated Osmolality 281 Calcium 8.0 L Corrected Calcium 8.7 Magnesium 1.6 Total Bilirubin 0.4 AST 28 ALT 12 Alkaline Phosphatase 160 H Total Protein 5.7 Albumin 3.1 L Globulin 2.6 Albumin/Globulin Ratio 1.2 04/07/25 08:15 WBC RBC Hgb Hct MCV MCH MCHC RDW Std Deviation Plt Count Neut % (Auto) Lymph % (Auto) [place] % (Auto) Eos % (Auto) Baso % (Auto) Neut # (Auto) Lymph # (Auto) [place] # (Auto) Eos # (Auto) Baso # (Auto) Immature Gran # (Auto) Absolute Nucleated RBC Immature Gran % Nucleated RBC % APTT 74.9 H D Sodium Potassium Chloride Carbon Dioxide Anion Gap BUN Creatinine Estim Creat Clear Calc eGFR BUN/Creatinine Ratio Glucose Calculated Osmolality Calcium Corrected Calcium Magnesium Total Bilirubin AST ALT Alkaline Phosphatase Total Protein Albumin Globulin Albumin/Globulin Ratio ABG Interpretation ABG results: 02/27/25 02/28/25 03/01/25 06:55 04:57 04:39 ABG pH 7.27 L 7.37 D 7.41 ABG pCO2 57 H 48 44 ABG pO2 101 78 L D 69 L ABG HCO3 26 28 H 28 H ABG O2 Saturation 98 95 93 ABG Base Excess -2 2 3 VBG pH VBG pCO2 VBG pO2 VBG Base Excess 03/01/25 03/01/25 03/02/25 13:15 14:52 04:25 ABG pH Cancelled 7.41 7.45 ABG pCO2 Cancelled 45 42 ABG pO2 Cancelled 53 L* 66 L ABG HCO3 Cancelled 28 H 29 H ABG O2 Saturation Cancelled 85 L 92 ABG Base Excess Cancelled 3 5 H VBG pH VBG pCO2 VBG pO2 VBG Base Excess 03/03/25 03/05/25 03/05/25 04:40 16:30 16:55 ABG pH 7.45 Cancelled 7.34 L D ABG pCO2 43 Cancelled 72 H* D ABG pO2 72 L Cancelled 83 ABG HCO3 30 H Cancelled 38 H ABG O2 Saturation 94 Cancelled 95 ABG Base Excess 5 H Cancelled 9 H VBG pH VBG pCO2 VBG pO2 VBG Base Excess 03/05/25 03/06/25 03/06/25 23:36 01:48 05:22 ABG pH 7.37 7.34 L 7.52 H D ABG pCO2 67 H 74 H* 47 D ABG pO2 150 H D 88 D 160 H D ABG HCO3 38 H 40 H 38 H ABG O2 Saturation 99 H 96 100 H ABG Base Excess 10 H 11 H 13 H VBG pH VBG pCO2 VBG pO2 VBG Base Excess 03/06/25 03/07/25 03/07/25 17:10 05:00 14:03 ABG pH 7.46 H ABG pCO2 53 H ABG pO2 65 L D ABG HCO3 38 H ABG O2 Saturation 93 ABG Base Excess 12 H VBG pH 7.50 7.52 VBG pCO2 50 47 VBG pO2 70 H 61 H VBG Base Excess 13 H 14 H 03/09/25 03/09/25 03/09/25 08:17 10:25 17:29 ABG pH 7.25 L D 7.29 L 7.29 L ABG pCO2 93 H* D 85 H* 88 H* ABG pO2 81 L 57 L* D 85 D ABG HCO3 41 H 40 H 43 H ABG O2 Saturation 95 89 L 97 ABG Base Excess 10 H 10 H 12 H VBG pH VBG pCO2 VBG pO2 VBG Base Excess 03/09/25 03/10/25 03/10/25 23:24 07:17 11:25 ABG pH 7.32 L 7.28 L 7.31 L ABG pCO2 78 H* D 90 H* D 81 H* ABG pO2 69 L 47 L* D 63 L ABG HCO3 40 H 43 H 41 H ABG O2 Saturation 94 80 L 93 ABG Base Excess 11 H 12 H 11 H VBG pH VBG pCO2 VBG pO2 VBG Base Excess 03/10/25 03/11/25 03/12/25 16:56 04:19 04:42 ABG pH 7.40 7.48 H 7.43 ABG pCO2 66 H D 54 H D 59 H ABG pO2 68 L 67 L 77 L ABG HCO3 41 H 40 H 39 H ABG O2 Saturation 94 94 96 ABG Base Excess 13 H 15 H 12 H VBG pH VBG pCO2 VBG pO2 VBG Base Excess 03/13/25 03/14/25 03/15/25 04:32 04:25 04:37 ABG pH 7.47 H 7.46 H 7.41 ABG pCO2 53 H 50 H 56 H ABG pO2 60 L 70 L 69 L ABG HCO3 38 H 36 H 35 H ABG O2 Saturation 93 95 95 ABG Base Excess 13 H 10 H 9 H VBG pH VBG pCO2 VBG pO2 VBG Base Excess 03/16/25 03/16/25 03/17/25 04:54 09:53 04:35 ABG pH 7.45 7.48 H 7.47 H ABG pCO2 51 H 49 H 53 H ABG pO2 68 L 34 L* D 87 D ABG HCO3 35 H 37 H 38 H ABG O2 Saturation 95 67 L 97 ABG Base Excess 10 H 12 H 13 H VBG pH VBG pCO2 VBG pO2 VBG Base Excess 03/18/25 03/19/25 03/26/25 04:26 05:00 08:20 ABG pH 7.44 7.45 7.46 H ABG pCO2 57 H 55 H 54 H ABG pO2 107 D 73 L D 79 L ABG HCO3 38 H 38 H 38 H ABG O2 Saturation 99 H 96 97 ABG Base Excess 12 H 12 H 12 H VBG pH VBG pCO2 VBG pO2 VBG Base Excess Quality Measures Quality Measures VTE therapy and sepsis Current suspected stage: ruled out Possible source: pulmonary Blood cultures ordered: completed in ED Antibiotic ordered: Yes Advance care planning discussed with:: patient Assessment & Plan Assessment Current Active Medications: Generic Name Dose Route Start Last Admin Trade Name Freq PRN Reason Stop Dose Admin Amiodarone HCl 200 mg 04/03/25 09:00 04/07/25 09:24 Amiodarone Hcl 200 Mg Tablet NG 05/03/25 08:59 200 mg QDAY KOURTNEY Administration Amlodipine Besylate 10 mg 03/31/25 07:30 04/07/25 09:23 Amlodipine Besylate 5 Mg Tablet NG 04/19/25 07:29 10 mg DAILY KOURTNEY Administration Ascorbic Acid 500 mg 03/27/25 12:00 04/07/25 09:23 Ascorbic Acid 250 Mg Tablet NG 04/26/25 11:59 500 mg BID KOURTNEY Administration Bumetanide 1 mg 04/05/25 21:00 04/06/25 21:38 Bumetanide Inj 0.25 Mg/Ml Vial 4 Ml IVP 05/05/25 20:59 1 mg QPM KOURTNEY Administration Bumetanide 2 mg 04/07/25 09:30 04/07/25 09:29 Bumetanide 0.5 Mg Tablet PO 05/07/25 09:29 2 mg QDAY KOURTNEY Administration Collagenase 0 gm 04/01/25 11:30 04/07/25 09:25 Collagenase Oint 30 Gm Tube TOP 05/01/25 11:29 1 applicatio DAILY KOURTNEY Administration Cyclobenzaprine HCl 5 mg 03/26/25 08:25 04/03/25 12:18 Cyclobenzaprine 5 Mg Tablet PO 04/25/25 08:24 5 mg TID PRN Administration MUSCLE SPASMS Protocol Heparin Sodium/Dextrose 25,000 unit in 250 mls @ 18 mls/hr 04/01/25 16:45 04/07/25 10:45 Heparin In D5w Ivpb IV 04/15/25 16:44 11.96 units/kg/hr .[id number] KOURTNEY 24.016 mls/hr Titration Protocol 8.964 UNITS/KG/HR Metronidazole 500 mg in 100 mls @ 200 mls/hr 04/02/25 15:51 04/07/25 05:15 Flagyl 500 Mg Iv IV 04/09/25 15:50 200 mls/hr Q8HR KOURTNEY Administration Cefepime HCl 2 gm/ Sodium 50 mls @ 100 mls/hr 04/04/25 14:00 04/07/25 05:12 Chloride IV 04/11/25 13:59 100 mls/hr Q8HR KOURTNEY Administration Insulin Glargine 38 unit 03/30/25 09:00 04/07/25 09:25 Insulin Glargine (Lantus) 5 Unit/0.05 Ml (Per 5 Units) SC 04/29/25 08:59 38 unit QDAY KOURTNEY Administration Insulin Human Lispro 0 unit 03/25/25 12:00 04/07/25 05:20 Insulin Lispro (Admelog) 1 Unit/0.01 Ml Unit SC 04/24/25 11:59 Not Given Q6HR KOURTNEY Protocol Lansoprazole 30 mg 03/23/25 09:30 04/07/25 09:23 Lansoprazole 30 Mg Tab.Rap.Dr CHAPIN 04/21/25 08:59 30 mg QDAY KOURTNEY Administration Multivitamins/Minerals 15 ml 03/27/25 12:00 04/07/25 09:23 Multivitamin 15 Ml c 04/26/25 11:59 15 ml QDAY KOURTNEY Administration Zinc Sulfate 220 mg 03/27/25 12:00 04/07/25 09:23 Zinc Sulfate 220 Mg Capsule 04/10/25 11:59 220 mg QDAY KOURTNEY Administration Plan 64-year-old male with past medical history of DM2, hypertension, A-fib, and Jehova's witness was admitted to the ICU on 02/27/2025 for shock and acute hypoxic respiratory failure. Initiating transfer for higher level of care at this time for Jejunostomy. #Acute on Chronic Hypoxic Hypercapnic Respiratory Failure #Aspiration Pneumonia #Obesity hypoventilation syndrome and obstructive sleep apnea #Dysphagia #Tracheostomy At this point, we are currently pending approval from [facility] Patient's bariatric surgeon was Dr. 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 Doty still in the process of reaching out to [facility] [place], [place] if they will accept the patient for transfer. In the meantime he suggested we consult general surgery for a possible open gastrostomy tube placement. General surgeon, Dr. Jamil lucas sided about the above, she will check the body weight requirements for the OR bed and get back to us. Plan: ? Pending Transfer to higher level of care for higher jejunostomy tube placement versus surgical placement ? Possible surgical placement of G-tube at our facility pending checking the requirements of OR bed ? Free water flushes held for 24 hours due to worsening edema of right arm ? 2 Sánchez feedings ? Continue cefepime IV 2 g every 8 hours and Flagyl 500 mg every 8 hours IV ? Blow-By as tolerated ? Will reach out to Dr. Mena for possible bedside C-arm guided fluoroscopic swallow study at bedside as per speech therapy recommendations. #Right internal jugular venous thrombosis #Right arm swelling Today patient's right arm appeared more swollen than his left, duplex ultrasound was negative for extension of RIJ thrombus. Will hold free water flushes for today due to patient's arm being more edematous. Plan: - Elevation of arm ? Heparin Drip per protocol (04/01- ? Continuing to hold Xarleto #Right diastolic CHF, improved Will give patient additional diuresis today as patient appears to be overloaded Patient sodium was 134 today Plan: ? Cardiology consulted, appreciate recs ? Continue strict daily body weight ? Continue Bumex 2 g daily, will add Bumex 1 g at night ? Daily weights ? Strict I&O #Hx of A-fib [id number] score of 3 points indicating 3.2% risk of stroke per year HAS-BLED: 0 Plan: ? Heparin drip ? Amio 200 mg QDAY NG ? Potassium and magnesium above 4 and 2 respectively ? Telemetry #Decubitus ulcer Not requiring surgical intervention at this time Plan: ? Monitor for signs of infection ? Wound care ? Wound care vitamins including zinc, multivitamin and vitamin C #Morbid obesity #DM2 A1C 7.6 on 03/05/2025 Patient has a BMI of 79.5 Plan: ? ISS scale 2 ? Hypoglycemia protocol ordered ? 38 units of Lantus #Normocytic Anemia Likely secondary to anemia of chronic disease given normal MCV. No acute intervention, continue to monitor #Depressive symptoms Patient repeatedly mouths please help me and appears to have a depressed affect. Unable to further assess due to him being nonverbal secondary to tracheostomy tube. Plan: ? Started on sertraline 25 Mg p.o. at bedtime as this is the antidepressant with the least the weight gain. #Community-acquired pneumonia, Enterobacter Cloacoe #Leukocytosis, resolved #Enterobacter cloacoe pneumonia, resolved. #Acute encephalopathy, resolved #KENIA resolved #Hypokalemia resolved #Hypernatremia resolved #Metabolic alkalosis resolved #Health Maintenance Disposition: Pending transfer to tertiary center for higher level of care. Possible surgical placement of gastrostomy tube at our facility pending requirements of OR bed DVT prophylaxis: Heparin Drip GI prophylaxis: Protonix Diet: NG tube feeds with 2Cal CODE STATUS: Full Plan of care discussed with Attending Dr. Karolina Parra MD PGY 1 Disclaimer: This note was dictated by speech recognition. Minor errors in training intern may be present due to voice recognition software. Attending Provider Attestation/Addendum I have discussed and was present for the essential components of the history, physical examination, diagnosis, and treatment plan with the resident. I agree with the patient's care as documented by the resident and amended herein by me. Arnol Turcios, DO. Although this document has been carefully reviewed, there may still be some phonetic and other typographical errors. These errors are purely grammatical due to imperfections in the software program and should not be construed in any way to compromise the substance of the patient's medical care during this visit.
[2025-04-07] MEDS: INSULIN LISPRO (AdmeLOG) 1 UNIT/0.01 ML UNIT SC (11:24)
[2025-04-07] MEDS: LORazepam 2 MG/ML VIAL IVP (16:17)
[2025-04-07 18:09] LABS: Partial Thromboplastin Time 68.9 Seconds (22.0-36.0)
[2025-04-07] MEDS: BUMETANIDE INJ 0.25 MG/ML VIAL 4 ML 1 MG IVP (20:56)
[2025-04-07] MEDS: SERTRALINE HCL 25 MG TABLET PO (20:56)
--- NOTE | 2025-04-07 23:55 | PC.RT ---
pt continues tolerating ventilator settings no changes made at this time. order settings updated per DR. Tobar volume simv 420, RR10, peep 8 ps8 .
[2025-04-08] VITALS (13 sets, daily range): BP systolic 93–135; BP diastolic 68–98; PULSE 60–102; RESP 18–34; TEMP 36.1–36.7; O2SAT 95–100; BMI 68.0
[2025-04-08] MEDS: CEFEPIME INJ 2 GM in SODIUM CHLORIDE 0.9% (Popper) 50 ML IV ×3 (05:00→23:10)
[2025-04-08] MEDS: metroNIDAZOLE/NS 500 MG IVPB 500 MG/100 ML BAG 200 MG IV ×3 (05:32→23:54)
--- NOTE | 2025-04-08 06:32 | PC.NURSE ---
phlebo unable to draw am labs, will have another phlebo come draw pt.
[2025-04-08] MEDS: amLODIPine BESYLATE 5 MG TABLET 10 MG NG (08:29)
[2025-04-08] MEDS: AMIODARONE HCL 200 MG TABLET NG (08:31)
[2025-04-08] MEDS: MULTIVITAMIN 15 ML UDC NG (08:31)
[2025-04-08] MEDS: LANSOPRAZOLE 30 MG TAB.RAP.DR NG (08:31)
[2025-04-08] MEDS: ASCORBIC ACID 250 MG TABLET 500 MG NG ×2 (08:31→20:14)
[2025-04-08] MEDS: BUMETANIDE 0.5 MG TABLET 2 MG PO (08:31)
[2025-04-08] MEDS: ZINC SULFATE 220 MG CAPSULE NG (08:31)
[2025-04-08] MEDS: INSULIN GLARGINE (Lantus) 5 UNIT/0.05 ML (PER 5 UNITS) 38 UNIT SC (08:32)
[2025-04-08] MEDS: Magnesium Sulfate 2 GM Ivpb 2 GM/50 ML BAG IV (08:37)
[2025-04-08] MEDS: COLLAGENASE OINT 30 GM TUBE TOP (08:37)
[2025-04-08 08:44] LABS: Nucleated Red Blood Cell % 0 /100 WBC (0)
[2025-04-08 08:50] LABS: Partial Thromboplastin Time 35.5 Seconds (22.0-36.0)
[2025-04-08 09:08] LABS: Alanine Aminotransferase 12 U/L (10-49); Albumin/Globulin Ratio 1.3 (1.2-2.2); Alkaline Phosphatase 169 U/L (46-116); Anion Gap 4 (7-16); Aspartate Amino Transferase 27 U/L (0-34); BUN/Creatinine Ratio 22 Ratio (12-20); Bilirubin,Total 0.4 mg/dL (0.3-1.2); Blood Urea Nitrogen 26 mg/dL (9-23); Calcium 8.1 mg/dL (8.3-10.6); Calcium (Corrected) 8.9 mg/dL (8.5-10.1); Carbon Dioxide 38.6 mMol/L (20.0-31.0); Chloride 95 mMol/L (98-107); Creatinine (Component) 1.2 mg/dL (0.6-1.3); Estimated Creatinine Clearance 101.5 mL/min (>60); Globulin 2.4 gm/dL (2.3-3.5); Glucose 160 mg/dL (74-106); Magnesium 1.6 mg/dL (1.6-2.6); Osmolality,Calculated 283 (275-295); Sodium 138 mMol/L (136-145); Total Protein 5.4 gm/dL (5.7-8.2); eGFR > 60 See Note
[2025-04-08 09:10] LABS: Basophils # (Auto) 0.1 Thou/mm3 (0.0-0.2); Basophils % (Auto) 1 % (0-2.5); Eosinophils # (Auto) 0.3 Thou/mm3 (0.0-0.5); Eosinophils % (Auto) 3 % (0-10); Hematocrit 33.4 % (41.0-53.0); Hemoglobin 10.6 g/dL (13.5-16.0); Immature Granulocytes % (Auto) 2 % (0-0); Immature Granulocytes Auto 0.24 Thou/mm3 (0.00-0.00); Lymphocytes # (Auto) 1.5 Thou/mm3 (1.0-4.8); Lymphocytes % (Auto) 15 % (10-50); Mean Corpuscular HGB Conc 31.7 g/dl (31.0-37.0); Mean Corpuscular Volume 88 fL (80-100); Monocytes # (Auto) 1.2 Thou/mm3 (0.0-0.8); Monocytes % (Auto) 11 % (0-12); Neutrophils % (Auto) 69 % (37-80); Platelet Count 292 Thou/mm3 (140-440); Red Blood Count 3.78 Miln/mm3 (4.50-5.90); White Blood Count 10.2 Thou/mm3 (3.8-10.6)
--- NOTE | 2025-04-08 09:45 | PD.RESPRO ---
Documentation for date of: 04/08/25 Subjective Subjective Interval history: Patient examined at bedside today. No acute overnight events. Patient appears to continue to be fluid overloaded with some right upper extremity swelling and pitting edema. Patient's creatinine today is 1.2, sodium 138. Patient is experiencing some back pain. Will address this as well. Still pending further surgical recs. No other complaints at this time. Exam Vital Signs Temp Pulse Resp BP Pulse Ox O2 Del Method O2 Flow Rate 97.8 F 98 24 H 117/88 H 100 Mechanical Ventilation 50 04/08/25 08:00 04/08/25 08:31 04/08/25 08:00 04/08/25 08:31 04/08/25 08:00 04/08/25 08:00 04/08/25 08:00 FiO2 50 04/08/25 07:04 Narrative Exam General: AAOx3, in mild distress, severely morbidly obese HEENT: Dry mucous membranes, conjunctiva clear, EOMI, PERRLA, trachestomy Cardiovascular: Ejection systolic murmur, radial pulses +2 bilat, irregularly irregular, Pulmonary: Currently on ventilation PEEP of 8, FiO2 50 and not blow-by GI: No tenderness to light or deep palpitation, no guarding, rigidity, rebound tenderness or distension Extremities: Pitting +2 bilaterally edema in lower extremities bilaterally, dorsalis pedis pulses +2 bilaterally, anasarca, right upper extremity more edematous than left Back: Decubitis ulcer present that appears to be foul smelling and necrotic, no bone visualization Neuro: AAOx3, no focal motor or sensory deficits in the UE or LE bilat Objective Labs 04/08/25 08:10 04/08/25 08:10 Labs: Laboratory Results - last 24 hr 04/07/25 04/08/25 16:52 08:10 WBC 10.2 RBC 3.78 L Hgb 10.6 L Hct 33.4 L MCV 88 MCH 28.0 MCHC 31.7 RDW Std Deviation 51.0 H Plt Count 292 Neut % (Auto) 69 Lymph % (Auto) 15 [place] % (Auto) 11 Eos % (Auto) 3 Baso % (Auto) 1 Neut # (Auto) 7.0 Lymph # (Auto) 1.5 [place] # (Auto) 1.2 H Eos # (Auto) 0.3 Baso # (Auto) 0.1 Immature Gran # (Auto) 0.24 H Absolute Nucleated RBC 0.00 Immature Gran % 2 H Nucleated RBC % 0 APTT 68.9 H 35.5 D Sodium 138 Potassium 4.0 Chloride 95 L Carbon Dioxide 38.6 H Anion Gap 4 L BUN 26 H Creatinine 1.2 Estim Creat Clear Calc 101.5 eGFR > 60 BUN/Creatinine Ratio 22 H Glucose 160 H Calculated Osmolality 283 Calcium 8.1 L Corrected Calcium 8.9 Magnesium 1.6 Total Bilirubin 0.4 AST 27 ALT 12 Alkaline Phosphatase 169 H Total Protein 5.4 L Albumin 3.0 L Globulin 2.4 Albumin/Globulin Ratio 1.3 ABG Interpretation ABG results: 02/27/25 02/28/25 03/01/25 06:55 04:57 04:39 ABG pH 7.27 L 7.37 D 7.41 ABG pCO2 57 H 48 44 ABG pO2 101 78 L D 69 L ABG HCO3 26 28 H 28 H ABG O2 Saturation 98 95 93 ABG Base Excess -2 2 3 VBG pH VBG pCO2 VBG pO2 VBG Base Excess 03/01/25 03/01/25 03/02/25 13:15 14:52 04:25 ABG pH Cancelled 7.41 7.45 ABG pCO2 Cancelled 45 42 ABG pO2 Cancelled 53 L* 66 L ABG HCO3 Cancelled 28 H 29 H ABG O2 Saturation Cancelled 85 L 92 ABG Base Excess Cancelled 3 5 H VBG pH VBG pCO2 VBG pO2 VBG Base Excess 03/03/25 03/05/25 03/05/25 04:40 16:30 16:55 ABG pH 7.45 Cancelled 7.34 L D ABG pCO2 43 Cancelled 72 H* D ABG pO2 72 L Cancelled 83 ABG HCO3 30 H Cancelled 38 H ABG O2 Saturation 94 Cancelled 95 ABG Base Excess 5 H Cancelled 9 H VBG pH VBG pCO2 VBG pO2 VBG Base Excess 03/05/25 03/06/25 03/06/25 23:36 01:48 05:22 ABG pH 7.37 7.34 L 7.52 H D ABG pCO2 67 H 74 H* 47 D ABG pO2 150 H D 88 D 160 H D ABG HCO3 38 H 40 H 38 H ABG O2 Saturation 99 H 96 100 H ABG Base Excess 10 H 11 H 13 H VBG pH VBG pCO2 VBG pO2 VBG Base Excess 03/06/25 03/07/25 03/07/25 17:10 05:00 14:03 ABG pH 7.46 H ABG pCO2 53 H ABG pO2 65 L D ABG HCO3 38 H ABG O2 Saturation 93 ABG Base Excess 12 H VBG pH 7.50 7.52 VBG pCO2 50 47 VBG pO2 70 H 61 H VBG Base Excess 13 H 14 H 03/09/25 03/09/25 03/09/25 08:17 10:25 17:29 ABG pH 7.25 L D 7.29 L 7.29 L ABG pCO2 93 H* D 85 H* 88 H* ABG pO2 81 L 57 L* D 85 D ABG HCO3 41 H 40 H 43 H ABG O2 Saturation 95 89 L 97 ABG Base Excess 10 H 10 H 12 H VBG pH VBG pCO2 VBG pO2 VBG Base Excess 03/09/25 03/10/25 03/10/25 23:24 07:17 11:25 ABG pH 7.32 L 7.28 L 7.31 L ABG pCO2 78 H* D 90 H* D 81 H* ABG pO2 69 L 47 L* D 63 L ABG HCO3 40 H 43 H 41 H ABG O2 Saturation 94 80 L 93 ABG Base Excess 11 H 12 H 11 H VBG pH VBG pCO2 VBG pO2 VBG Base Excess 03/10/25 03/11/25 03/12/25 16:56 04:19 04:42 ABG pH 7.40 7.48 H 7.43 ABG pCO2 66 H D 54 H D 59 H ABG pO2 68 L 67 L 77 L ABG HCO3 41 H 40 H 39 H ABG O2 Saturation 94 94 96 ABG Base Excess 13 H 15 H 12 H VBG pH VBG pCO2 VBG pO2 VBG Base Excess 03/13/25 03/14/25 03/15/25 04:32 04:25 04:37 ABG pH 7.47 H 7.46 H 7.41 ABG pCO2 53 H 50 H 56 H ABG pO2 60 L 70 L 69 L ABG HCO3 38 H 36 H 35 H ABG O2 Saturation 93 95 95 ABG Base Excess 13 H 10 H 9 H VBG pH VBG pCO2 VBG pO2 VBG Base Excess 03/16/25 03/16/25 03/17/25 04:54 09:53 04:35 ABG pH 7.45 7.48 H 7.47 H ABG pCO2 51 H 49 H 53 H ABG pO2 68 L 34 L* D 87 D ABG HCO3 35 H 37 H 38 H ABG O2 Saturation 95 67 L 97 ABG Base Excess 10 H 12 H 13 H VBG pH VBG pCO2 VBG pO2 VBG Base Excess 03/18/25 03/19/25 03/26/25 04:26 05:00 08:20 ABG pH 7.44 7.45 7.46 H ABG pCO2 57 H 55 H 54 H ABG pO2 107 D 73 L D 79 L ABG HCO3 38 H 38 H 38 H ABG O2 Saturation 99 H 96 97 ABG Base Excess 12 H 12 H 12 H VBG pH VBG pCO2 VBG pO2 VBG Base Excess Quality Measures Quality Measures VTE therapy and sepsis Current suspected stage: ruled out Possible source: pulmonary Blood cultures ordered: completed in ED Antibiotic ordered: Yes Advance care planning discussed with:: patient Assessment & Plan Assessment Current Active Medications: Generic Name Dose Route Start Last Admin Trade Name Freq PRN Reason Stop Dose Admin Amiodarone HCl 200 mg 04/03/25 09:00 04/08/25 08:31 Amiodarone Hcl 200 Mg Tablet NG 05/03/25 08:59 200 mg QDAY KOURTNEY Administration Amlodipine Besylate 10 mg 03/31/25 07:30 04/08/25 08:29 Amlodipine Besylate 5 Mg Tablet NG 04/19/25 07:29 10 mg DAILY KOURTNEY Administration Ascorbic Acid 500 mg 03/27/25 12:00 04/08/25 08:31 Ascorbic Acid 250 Mg Tablet NG 04/26/25 11:59 500 mg BID KOURTNEY Administration Bumetanide 1 mg 04/05/25 21:00 04/07/25 20:56 Bumetanide Inj 0.25 Mg/Ml Vial 4 Ml IVP 05/05/25 20:59 1 mg QPM KOURTNEY Administration Bumetanide 2 mg 04/07/25 09:30 04/08/25 08:31 Bumetanide 0.5 Mg Tablet PO 05/07/25 09:29 2 mg QDAY KOURTNEY Administration Collagenase 0 gm 04/01/25 11:30 04/08/25 08:37 Collagenase Oint 30 Gm Tube TOP 05/01/25 11:29 1 applicatio DAILY KOURTNEY Administration Cyclobenzaprine HCl 5 mg 03/26/25 08:25 04/03/25 12:18 Cyclobenzaprine 5 Mg Tablet PO 04/25/25 08:24 5 mg TID PRN Administration MUSCLE SPASMS Protocol Heparin Sodium/Dextrose 25,000 unit in 250 mls @ 18 mls/hr 04/01/25 16:45 04/07/25 23:59 Heparin In D5w Ivpb IV 04/15/25 16:44 11.96 units/kg/hr .[id number] KOURTNEY 24.016 mls/hr Administration Protocol 8.964 UNITS/KG/HR Metronidazole 500 mg in 100 mls @ 200 mls/hr 04/02/25 15:51 04/08/25 06:14 Flagyl 500 Mg Iv IV 04/09/25 15:50 Infused Q8HR KOURTNEY Infusion Cefepime HCl 2 gm/ Sodium 50 mls @ 100 mls/hr 04/04/25 14:00 04/08/25 05:33 Chloride IV 04/11/25 13:59 Infused Q8HR KOURTNEY Infusion Insulin Glargine 38 unit 03/30/25 09:00 04/08/25 08:32 Insulin Glargine (Lantus) 5 Unit/0.05 Ml (Per 5 Units) SC 04/29/25 08:59 38 unit QDAY KOURTNEY Administration Insulin Human Lispro 0 unit 03/25/25 12:00 04/08/25 05:25 Insulin Lispro (Admelog) 1 Unit/0.01 Ml Unit SC 04/24/25 11:59 Not Given Q6HR [facility] Protocol Lansoprazole 30 mg 03/23/25 09:30 04/08/25 08:31 Lansoprazole 30 Mg Tab.Rap.Dr CHAPIN 04/21/25 08:59 30 mg QDAY KOURTNEY Administration Multivitamins/Minerals 15 ml 03/27/25 12:00 04/08/25 08:31 Multivitamin 15 Ml Udc NG 04/26/25 11:59 15 ml QDAY KOURTNEY Administration Sertraline HCl 25 mg 04/07/25 21:00 04/07/25 20:56 Sertraline Hcl 25 Mg Tablet PO 05/07/25 20:59 25 mg HS KOURTNEY Administration Zinc Sulfate 220 mg 03/27/25 12:00 04/08/25 08:31 Zinc Sulfate 220 Mg Capsule NG 04/10/25 11:59 220 mg QDAY KOURTNEY Administration Plan Assessment 64-year-old male with past medical history of DM2, hypertension, A-fib, and Jehova's witness was admitted to the ICU on 02/27/2025 for shock and acute hypoxic respiratory failure. Initiating transfer for higher level of care at this time for Jejunostomy. #Acute on Chronic Hypoxic Hypercapnic Respiratory Failure #Aspiration Pneumonia #Obesity hypoventilation syndrome and obstructive sleep apnea #Dysphagia #Tracheostomy Rejected from [facility] Patient's bariatric surgeon was Dr. Wetzel at [facility] Patient will need to have NG tube removed soon as we are approaching 3-week jesus Pending focused factory manager, Dr. Doty to see if patient will be accepted for transfer General Surgery, Dr. Negron is requesting CT abdomen Plan: ? Pending Transfer to higher level of care for higher jejunostomy tube placement versus surgical placement ? CT abdomen without contrast ? Continuing to hold water flushes ? 2 Sánchez feedings ? Continue cefepime IV 2 g every 8 hours and Flagyl 500 mg every 8 hours IV ? Blow-By as tolerated ? Chest x-ray ? CT abdomen #Right internal jugular venous thrombosis #Right arm swelling Continuing to hold free water flushes as patient is still edematous Plan: ? Elevation of arm ? Heparin Drip per protocol (04/01- ? Continuing to hold Xarleto #Right diastolic CHF, improved Patient continues to look overloaded, will increase diuresis and hold water flushes Patient sodium was 137 today; creatinine 1.2 Plan: ? Cardiology consulted, appreciate recs ? Continue strict daily body weight ? Continue Bumex 2 g IV twice daily ? Daily weights ? Strict I&O ? Trend creatinine #Hx of A-fib [id number] score of 3 points indicating 3.2% risk of stroke per year HAS-BLED: 0 Plan: ? Heparin drip ? Amio 200 mg QDAY NG ? Potassium and magnesium above 4 and 2 respectively ? Telemetry #Decubitus ulcer #Chronic back pain Not requiring surgical intervention at this time Will slowly give pain medicines for this patient, however do not want to over sedate patient Plan: ? Monitor for signs of infection ? Wound care ? Wound care vitamins including zinc, multivitamin and vitamin C ? [place] 5 every 8 hours #Morbid obesity #DM2 A1C 7.6 on 03/05/2025 Patient has a BMI of 79.5 Plan: ? ISS scale 2 ? Hypoglycemia protocol ordered ? 38 units of Lantus #Normocytic Anemia Likely secondary to anemia of chronic disease given normal MCV. No acute intervention, continue to monitor #MDD Zoloft will be most weight neutral of SSRIs Plan: ? Zoloft 25 mg at bedtime #Community-acquired pneumonia, Enterobacter [place] #Leukocytosis, resolved #Enterobacter cloacoe pneumonia, resolved. #Acute encephalopathy, resolved #KENIA resolved #Hypokalemia resolved #Hypernatremia resolved #Metabolic alkalosis resolved #Health Maintenance Disposition: Telemetry, pending transfer to tertiary center for higher level of care for IR Jejunostomy DVT prophylaxis: Heparin drip GI prophylaxis: Protonix Diet: NG tube feeds with 2Cal CODE STATUS: Full Patient seen and care discussed with my attending physician, Dr. Karolina Shields, PGY-1 Attending Provider Attestation/Addendum I have discussed and was present for the essential components of the history, physical examination, diagnosis, and treatment plan with the resident. I agree with the patient's care as documented by the resident and amended herein by me. Arnol Turcios DO. Patient seen and evaluated this AM. No acute events overnight, BP controlled, on mechanical ventilation in the morning, patient switched to blow-by however he could not tolerate. Significant labs include a WBC of 10.6, hemoglobin 10.6, creatinine stable 1.2. Repeat chest x-ray is ordered and pending, CT abdomen without contrast ordered as surgeries request in preparation for possible open laparotomy for J-tube placement considering the patient has been denied that multiple facilities. Will continue cefepime and Flagyl at this time for possible aspiration pneumonia with gram-negative and anaerobic bacteria, will continue to diurese as the patient is demonstrating worsening anasarca today, will increase to Bumex 2 mg IV twice daily. Heparin drip also continued for DVT. The patient's right arm is extremely edematous, likely secondary to IJ thrombosis however per ultrasound performed yesterday, is not expanding. Will continue to follow-up with general surgery and gastroenterology and continue monitor the patient closely. Although this document has been carefully reviewed, there may still be some phonetic and other typographical errors. These errors are purely grammatical due to imperfections in the software program and should not be construed in any way to compromise the substance of the patient's medical care during this visit.
[2025-04-08] MEDS: HEPARIN SOD INJ 5000 UNIT/ML VIAL 8000 UNIT IV ×2 (10:14→19:50)
--- NOTE | 2025-04-08 10:49 | XR_ITS ---
Examination: AP chest single view Technique one AP portable semiupright chest single view Date and time: April 08, 2025 11:20 AM Comparison April 05, 2025 INDICATIONS: Acute hypoxic respiratory failure, postintubation FINDINGS: Diffuse opacity right lung consistent with pneumonia and layering right pleural fluid Mild to moderate central cardiac contour with prominent vascular congestion Endotracheal tube tip 7.2 cm above Meggan Orogastric tube in stomach IMPRESSION: Diffuse right lung pneumonia. Mild heart failure
[2025-04-08] MEDS: INSULIN LISPRO (AdmeLOG) 1 UNIT/0.01 ML UNIT SC (11:30)
[2025-04-08] MEDS: Heparin/D5w 25K 250 ML Ivpb 25,000 UNIT/250 ML BAG 32.048 UNIT IV (12:26)
--- NOTE | 2025-04-08 15:20 | PD.IMPROG ---
Documentation for date of: 04/08/25 Subjective Subjective Interval history: Will call [facility] in the morning In the meantime continue current management Exam Vital Signs Temp Pulse Resp BP Pulse Ox O2 Del Method O2 Flow Rate 97.9 F 86 18 112/86 H 97 Mechanical Ventilation 50 04/08/25 12:00 04/08/25 12:11 04/08/25 12:00 04/08/25 12:00 04/08/25 12:11 04/08/25 12:00 04/08/25 08:00 FiO2 50 04/08/25 12:11 Objective Labs 04/08/25 08:10 04/08/25 08:10 Labs: Laboratory Results - last 24 hr 04/07/25 04/08/25 16:52 08:10 WBC 10.2 RBC 3.78 L Hgb 10.6 L Hct 33.4 L MCV 88 MCH 28.0 MCHC 31.7 RDW Std Deviation 51.0 H Plt Count 292 Neut % (Auto) 69 Lymph % (Auto) 15 [place] % (Auto) 11 Eos % (Auto) 3 Baso % (Auto) 1 Neut # (Auto) 7.0 Lymph # (Auto) 1.5 [place] # (Auto) 1.2 H Eos # (Auto) 0.3 Baso # (Auto) 0.1 Immature Gran # (Auto) 0.24 H Absolute Nucleated RBC 0.00 Immature Gran % 2 H Nucleated RBC % 0 APTT 68.9 H 35.5 D Sodium 138 Potassium 4.0 Chloride 95 L Carbon Dioxide 38.6 H Anion Gap 4 L BUN 26 H Creatinine 1.2 Estim Creat Clear Calc 101.5 eGFR > 60 BUN/Creatinine Ratio 22 H Glucose 160 H Calculated Osmolality 283 Calcium 8.1 L Corrected Calcium 8.9 Magnesium 1.6 Total Bilirubin 0.4 AST 27 ALT 12 Alkaline Phosphatase 169 H Total Protein 5.4 L Albumin 3.0 L Globulin 2.4 Albumin/Globulin Ratio 1.3 Impressions Impression: Failure to thrive Continue current management ABG Interpretation ABG results: 02/27/25 02/28/25 03/01/25 06:55 04:57 04:39 ABG pH 7.27 L 7.37 D 7.41 ABG pCO2 57 H 48 44 ABG pO2 101 78 L D 69 L ABG HCO3 26 28 H 28 H ABG O2 Saturation 98 95 93 ABG Base Excess -2 2 3 VBG pH VBG pCO2 VBG pO2 VBG Base Excess 03/01/25 03/01/25 03/02/25 13:15 14:52 04:25 ABG pH Cancelled 7.41 7.45 ABG pCO2 Cancelled 45 42 ABG pO2 Cancelled 53 L* 66 L ABG HCO3 Cancelled 28 H 29 H ABG O2 Saturation Cancelled 85 L 92 ABG Base Excess Cancelled 3 5 H VBG pH VBG pCO2 VBG pO2 VBG Base Excess 03/03/25 03/05/25 03/05/25 04:40 16:30 16:55 ABG pH 7.45 Cancelled 7.34 L D ABG pCO2 43 Cancelled 72 H* D ABG pO2 72 L Cancelled 83 ABG HCO3 30 H Cancelled 38 H ABG O2 Saturation 94 Cancelled 95 ABG Base Excess 5 H Cancelled 9 H VBG pH VBG pCO2 VBG pO2 VBG Base Excess 03/05/25 03/06/25 03/06/25 23:36 01:48 05:22 ABG pH 7.37 7.34 L 7.52 H D ABG pCO2 67 H 74 H* 47 D ABG pO2 150 H D 88 D 160 H D ABG HCO3 38 H 40 H 38 H ABG O2 Saturation 99 H 96 100 H ABG Base Excess 10 H 11 H 13 H VBG pH VBG pCO2 VBG pO2 VBG Base Excess 03/06/25 03/07/25 03/07/25 17:10 05:00 14:03 ABG pH 7.46 H ABG pCO2 53 H ABG pO2 65 L D ABG HCO3 38 H ABG O2 Saturation 93 ABG Base Excess 12 H VBG pH 7.50 7.52 VBG pCO2 50 47 VBG pO2 70 H 61 H VBG Base Excess 13 H 14 H 03/09/25 03/09/25 03/09/25 08:17 10:25 17:29 ABG pH 7.25 L D 7.29 L 7.29 L ABG pCO2 93 H* D 85 H* 88 H* ABG pO2 81 L 57 L* D 85 D ABG HCO3 41 H 40 H 43 H ABG O2 Saturation 95 89 L 97 ABG Base Excess 10 H 10 H 12 H VBG pH VBG pCO2 VBG pO2 VBG Base Excess 03/09/25 03/10/25 03/10/25 23:24 07:17 11:25 ABG pH 7.32 L 7.28 L 7.31 L ABG pCO2 78 H* D 90 H* D 81 H* ABG pO2 69 L 47 L* D 63 L ABG HCO3 40 H 43 H 41 H ABG O2 Saturation 94 80 L 93 ABG Base Excess 11 H 12 H 11 H VBG pH VBG pCO2 VBG pO2 VBG Base Excess 03/10/25 03/11/25 03/12/25 16:56 04:19 04:42 ABG pH 7.40 7.48 H 7.43 ABG pCO2 66 H D 54 H D 59 H ABG pO2 68 L 67 L 77 L ABG HCO3 41 H 40 H 39 H ABG O2 Saturation 94 94 96 ABG Base Excess 13 H 15 H 12 H VBG pH VBG pCO2 VBG pO2 VBG Base Excess 03/13/25 03/14/25 03/15/25 04:32 04:25 04:37 ABG pH 7.47 H 7.46 H 7.41 ABG pCO2 53 H 50 H 56 H ABG pO2 60 L 70 L 69 L ABG HCO3 38 H 36 H 35 H ABG O2 Saturation 93 95 95 ABG Base Excess 13 H 10 H 9 H VBG pH VBG pCO2 VBG pO2 VBG Base Excess 03/16/25 03/16/25 03/17/25 04:54 09:53 04:35 ABG pH 7.45 7.48 H 7.47 H ABG pCO2 51 H 49 H 53 H ABG pO2 68 L 34 L* D 87 D ABG HCO3 35 H 37 H 38 H ABG O2 Saturation 95 67 L 97 ABG Base Excess 10 H 12 H 13 H VBG pH VBG pCO2 VBG pO2 VBG Base Excess 03/18/25 03/19/25 03/26/25 04:26 05:00 08:20 ABG pH 7.44 7.45 7.46 H ABG pCO2 57 H 55 H 54 H ABG pO2 107 D 73 L D 79 L ABG HCO3 38 H 38 H 38 H ABG O2 Saturation 99 H 96 97 ABG Base Excess 12 H 12 H 12 H VBG pH VBG pCO2 VBG pO2 VBG Base Excess Assessment & Plan A&P Narrative 64-year-old male with significant past medical history of hypertension, diabetes mellitus, A-fib was admitted to the ICU on 02/27/2025 after coming in with altered mental status and shortness of breath, intubated for acute hypoxic respiratory failure and had suspected obesity hypoventilation syndrome/obstructive sleep apnea/pneumonia and acute kidney injury. He was extubated on 03/03 and downgraded then re-intubated on 03/06 due to confusion and tachypneia. He was then extubated and downgraded to the floor on 03/07. On 03/10, patient again had decreased mentation on the BiPAP so was reintubated and upgraded. Cardiology has been consulted for suspected heart failure. #Right congestive heart failure with preserved EF. #Severe BASIA/OHS. #Hypernatremia. Echo on this admission showed poor quality images secondary to the patient's body habitus so was a technically limited study. Suspect chronic right heart failure in the setting of chronic obesity hypoventilation syndrome and obstructive sleep apnea. Currently appears to be more pulmonary component to respiratory failure than cardiac. Requiring ventilation support. -Echo 02/27/25: IVC appears to be dilated and also estimated RVSP also appears to be at least moderately elevated at 55 mmHg. 03/14/25: Will hold dirutics for now , he was given IV fluids yesterday. 03/15/25 : [place] catheter was placed by ICU team which showed PA pressure of more than 30s and wedge pressure was also high . started him on bumex drip . will continue the albumin . he is getting his peg tube today 03/16/25: ICU team tried another [place] catheter today which showed RA pressure of 25, PA pressure of 38, PCWP of 23. Plan is to continue Bumex for him. Cr stable at 2.5 03/17/2025: Net fluid balance -3350 cc. ICU team held Bumex due to significant electrolyte abnormalities, potassium 2.7. Once repleted Bumex drip will be resumed. Continue current management and monitor patient. 03/18/2025: net fluid balance -1650 , he received 1 dose of diamox yesterday. will continue to diures, he is off ventillor in blowby with PRN ventillator when he gets tired. 03/19/2025: no acute overnight event.Balance of -950 . ICU team put a swan catheter which showed he is adequately diressed for now, so bumex on hold for now. pending pegtube placement, its been difficult to do the procedure consedering his Rouxy history. Plan: 03/20/2025: Will hold dirutics for now, he was given IV LR and FWF via NG for hypernatremia. 03/21/2025: no acute overnight event. free water flushes increase today for hypernatremia . Xarelto resumed . bumex on hold ,Dr Doty recommending jejunostomy placement. #Atrial fibrillation, rate controlled. Patient notes positive history of afib. He had previously been on metoprolol succinate 100 mg BID. Currently appears rate-controlled in the 100s. CHADS-VASc score 4 Plan: - Metoprolol on hold in setting of right heart failure . -Resume Xarelto. -Continue amiodarone 200 mg qday. -Keep potassium >4.0 and mag >2.0. Rest of conditions to continue current management per primary team: #Acute hypoxic respiratory failure s/p tracheostomy. #Morbid obesity. #Community acquired pneumonia. #Elevated LFTs, resolved. #Hyperbilirubinemia, resolved. #History of type 2 diabetes. #Lactic acidosis, resolved. #KENIA on CKD. 03/22/2025: Patient has tracheostomy inplace and is unable to communicate much Telemetry reviewed and rest of the vital signs including the heart rate appears to be stable. Labs showed that the patient still continues to have hyponatremia at 150 and also has elevated creatinine at 2.6 and a BUN of 66. Patient is on renal water flushes for the hyponatremia and creatinine continues to improve and baseline creatinine appears to be around 2.0 Recommend to continue with free water flushes for now. Patient is morbidly obese with multiple comorbidities as mentioned below and overall prognosis appears to be poor Primary team to discuss with the family regarding goals of care. Management of rest of the medical conditions as per primary team and other consultants. Thank you for the consult and allowing me to participate in the care of the patient. Cardiology will continue to follow. Kobe Barahona M.D. Interventional Cardiology Time Spent With Patient Time: Total time spent is greater than 50% in coordination of care (as documented) at patient's floor/unit and/or counseling patient:
--- NOTE | 2025-04-08 15:27 | PC.NURSE ---
Measured width of hip to hip is [address] Juli unable to safely obtain CT abdomen due to ct opening size. MD mosqueda aware.
[2025-04-08] MEDS: HYDROcodone/APAP 5/325 TABLET 1 TAB PO (15:34)
--- NOTE | 2025-04-08 16:24 | PC.RT ---
Rounding note: Declined by [facility] Dr. Roby Ayala to be consulted for surgical recommendation.
[2025-04-08 16:38] LABS: Partial Thromboplastin Time 30.5 Seconds (22.0-36.0)
--- NOTE | 2025-04-08 18:00 | PC.NURSE ---
PTT BELOW THERAPEUTIC. LOST IV ACCESS AND TRIED MULTIPLE ATTEMPTS TO OBTAIN IV ACCESS. CHARGE NURSE RN ATTEMPTED UTRASOUND IV UNABLE.
[2025-04-08] MEDS: SERTRALINE HCL 25 MG TABLET PO (20:15)
[2025-04-08] MEDS: Heparin/D5w 25K 250 ML Ivpb 25,000 UNIT/250 ML BAG 40.08 UNIT IV (21:11)
--- NOTE | 2025-04-08 22:07 | PC.NURSE ---
Notified MD Dr. Fernández regarding trying to obtain a new iv for the patient. Patient is currently has a heparin drip running in on iv line. Both Day shift and coastal tug mate tried to obtained a new iv line in order to administer patient's scheduled antibiotic to no avail.
[2025-04-09] VITALS (10 sets, daily range): BP systolic 114–124; BP diastolic 74–85; PULSE 57–98; RESP 19–37; TEMP 36.3–36.5; O2SAT 93–98
[2025-04-09 02:43] LABS: Basophils % (Auto) 0 % (0-2.5); Eosinophils # (Auto) 0.3 Thou/mm3 (0.0-0.5); Eosinophils % (Auto) 2 % (0-10); Hematocrit 30.6 % (41.0-53.0); Hemoglobin 9.9 g/dL (13.5-16.0); Immature Granulocytes % (Auto) 2 % (0-0); Immature Granulocytes Auto 0.23 Thou/mm3 (0.00-0.00); Lymphocytes # (Auto) 1.8 Thou/mm3 (1.0-4.8); Lymphocytes % (Auto) 16 % (10-50); Mean Corpuscular HGB Conc 32.4 g/dl (31.0-37.0); Mean Corpuscular Hemoglobin 28.3 pg (25.0-35.0); Mean Corpuscular Volume 87 fL (80-100); Monocytes # (Auto) 1.2 Thou/mm3 (0.0-0.8); Monocytes % (Auto) 11 % (0-12); Neutrophils # (Auto) 7.8 Thou/mm3 (1.8-7.7); Neutrophils % (Auto) 68 % (37-80); Nucleated Red Blood Cell % 0 /100 WBC (0); Platelet Count 326 Thou/mm3 (140-440); RDW Standard Deviation 50.3 fL (35.1-43.9); White Blood Count 11.4 Thou/mm3 (3.8-10.6)
[2025-04-09 03:01] LABS: Alanine Aminotransferase 12 U/L (10-49); Albumin/Globulin Ratio 1.3 (1.2-2.2); Alkaline Phosphatase 165 U/L (46-116); Anion Gap 6 (7-16); Aspartate Amino Transferase 32 U/L (0-34); BUN/Creatinine Ratio 22 Ratio (12-20); Bilirubin,Total 0.4 mg/dL (0.3-1.2); Blood Urea Nitrogen 26 mg/dL (9-23); Calcium (Corrected) 8.8 mg/dL (8.5-10.1); Carbon Dioxide 36.3 mMol/L (20.0-31.0); Chloride 95 mMol/L (98-107); Creatinine (Component) 1.2 mg/dL (0.6-1.3); Estimated Creatinine Clearance 101.5 mL/min (>60); Globulin 2.3 gm/dL (2.3-3.5); Glucose 126 mg/dL (74-106); Magnesium 1.7 mg/dL (1.6-2.6); Osmolality,Calculated 280 (275-295); Phosphorous 2.5 mg/dL (2.4-5.1); Potassium 3.8 mMol/L (3.4-5.1); Sodium 137 mMol/L (136-145); Total Protein 5.3 gm/dL (5.7-8.2); eGFR > 60 See Note
[2025-04-09 03:12] LABS: Partial Thromboplastin Time > 139.0 Seconds (22.0-36.0)
--- NOTE | 2025-04-09 03:19 | PC.NURSE ---
Was contacted by lab regarding a critical lab value. Patient's aptt results was >139.
[2025-04-09] MEDS: Heparin/D5w 25K 250 ML Ivpb 25,000 UNIT/250 ML BAG 34.056 UNIT IV (04:56)
[2025-04-09] MEDS: CEFEPIME INJ 2 GM in SODIUM CHLORIDE 0.9% (Popper) 50 ML IV ×2 (05:07→13:00)
[2025-04-09] MEDS: metroNIDAZOLE/NS 500 MG IVPB 500 MG/100 ML BAG 200 MG IV ×2 (05:43→14:00)
--- NOTE | 2025-04-09 06:23 | XR_ITS ---
Examination: AP chest single view TECHNIQUE: AP portable semiupright chest single view Date and time: April 09, 2025 0653 hours Comparison April 08, 2025 INDICATIONS: Orogastric tube reposition, hypoxic respiratory failure FINDINGS: Diffuse right lung opacity consistent with pneumonia Mild heart failure, mild enlargement cardiac contour and pulmonary vascular congestion. Tracheostomy tube tip 7.4 cm above Meggan The chest film is underpenetrated to adequately evaluate orogastric tube which does however appear to project in the stomach IMPRESSION: Diffuse right lung pneumonia Mild heart failure Recommendation abdomen film follow-up to assess orogastric tube position
--- NOTE | 2025-04-09 07:37 | PC.CC ---
Addendum entered by Rashida Horner RN 04/09/25 18:30: 1825 transfer packet is complete with CD inside including all signatures. Notified bedside nurse of the transfer packet and gave the number to call for report. Addendum entered by Rashida Horner RN 04/09/25 18:13: 1811 called [facility], spoke to Ashley and informed pick up man time is 1930. I also informed pt is coming with RN and RT rider. Addendum entered by Rashida Horner RN 04/09/25 18:11: 1810 called RT lead Barrera and informed pick up man time is 1930. Addendum entered by Rashida Horner RN 04/09/25 18:09: 1802 sent paperwork to [facility] through [employer]. Called [facility], spoke to Patricia and set up the transport. The pick up man time is 1930. Addendum entered by Rashida Horner RN 04/09/25 17:49: 1744 received call from Eri that RT is available for transport. [address] Shields and asked if pt has any other need except RT ride and no RN needed if heparin is discontinued. Dr. Shields stated he will call me back. 1743 called RT dept, spoke to Eri and informed need RT rider for transport. Addendum entered by Rashida Horner RN 04/09/25 17:39: 1735 received call from Ashley at [facility]. Pt is accepted at [facility]. Accepted by Dr. Campuzano. Pt is going to room 212. Report can be called to Yusuf at [phone]. Addendum entered by Rashida Horner RN 04/09/25 17:35: 1727 received call from Ashlye at [facility]. She is requesting me to connect Dr. Shields for peer to peer with Dr. Campuzano. Conference call connected. Addendum entered by Rashida Horner RN 04/09/25 16:30: 1622 received call from Ashley at [facility] that she is still waiting for bed and it will be after 1900 but she is requesting Dr. Shields direct number for peer to peer handoff at 1830. Dr. Shields number provided and informed Dr. Shields. Addendum entered by Rashida Horner RN 04/09/25 14:40: 1435 spoke to Sekou at [facility] and informed her pt is accepted at [facility] [place]. Addendum entered by Rashida Horner RN 04/09/25 14:38: 1420 received call from Ashley at [facility] that she received the TBA and insurance auth. Now pending bed assignment. Addendum entered by Rashida Horner RN 04/09/25 13:07: [address] Magana and [address]. Doty that pt is accepted at [facility]. Addendum entered by Rashida Horner RN 04/09/25 13:05: 1302 Completed TBA and faxed back to [facility]. Addendum entered by Rashida Horner RN 04/09/25 12:23: 1218 called [facility] for insurance auth and left message for Rosa. Addendum entered by Rashida Horner RN 04/09/25 12:22: 1217 received call from Ashley at [facility] that pt is accepted at [facility]. Now pending TBA and insurance auth. [facility] Tax ID is [id number], NPI is [id number]. Accepted by Dr. Ronnell Barbour. I provided fax number for TBA. Addendum entered by Rashida Horner RN 04/09/25 11:18: 1105 called Rosa with [facility] medical group and informed [facility] needs auth for transfer. She stated she will on it and send it to [facility]. Addendum entered by Rashida Horner RN 04/09/25 11:00: 1055 received call from Negirta at [facility]. She is requesting auth for transfer. Addendum entered by Rashida Horner RN 04/09/25 10:29: 1018 received call from Ashley at [facility], she wants to speak with Dr. Shields. Conference call connected. Addendum entered by Rashida Horner RN 04/09/25 09:53: 0953 clinicals sent to [facility] again. Addendum entered by Rashida Horner RN 04/09/25 09:44: 0944 clinicals faxed to [facility]. Addendum entered by Rashida Horner RN 04/09/25 09:42: 0934 called [facility], spoke to Sekou and initiated the transfer. She state to fax clinicals and nurse will give a call. Addendum entered by Rashida Horner RN 04/09/25 08:12: 0812 clinicals sent to [facility] and [facility]. Original Note: [address] Saini to follow up if our General sx was consulted for other alternative interventions. Dr. Saini stated general surgery was consulted and there is nothing they can do. I will try again today to transfer the patient.
--- NOTE | 2025-04-09 08:29 | XR_ITS ---
Examination: Abdomen AP single view Technique: AP portable supine abdomen, single view Exam date and time: April 09, 2025 0846 hours INDICATIONS: Post orogastric tube placement FINDINGS: Orogastric tube sidehole is at the GE junction No free air IMPRESSION: Advance the orogastric tube 5 cm
[2025-04-09] MEDS: Magnesium Sulfate 2 GM Ivpb 2 GM/50 ML BAG IV (08:34)
[2025-04-09] MEDS: INSULIN GLARGINE (Lantus) 5 UNIT/0.05 ML (PER 5 UNITS) 38 UNIT SC (08:47)
[2025-04-09] MEDS: amLODIPine BESYLATE 5 MG TABLET 10 MG NG (10:02)
[2025-04-09] MEDS: LANSOPRAZOLE 30 MG TAB.RAP.DR NG (10:02)
[2025-04-09] MEDS: ASCORBIC ACID 250 MG TABLET 500 MG NG (10:02)
[2025-04-09] MEDS: BUMETANIDE 0.5 MG TABLET 2 MG PO (10:02)
[2025-04-09] MEDS: MULTIVITAMIN 15 ML UDC NG (10:02)
[2025-04-09] MEDS: POTASSIUM CHLORIDE 10% 20 MEQ/15 ML UDC NG (10:02)
[2025-04-09] MEDS: ZINC SULFATE 220 MG CAPSULE NG (10:03)
[2025-04-09] MEDS: AMIODARONE HCL 200 MG TABLET NG (10:03)
[2025-04-09] MEDS: COLLAGENASE OINT 30 GM TUBE TOP (10:04)
--- NOTE | 2025-04-09 10:15 | PD.SURCONS ---
HPI Consult details History of present illness: 64M with HTN, DMII, atrial fibrillation, history of gastric bypass, and super morbid obesity (BMI 68) who was initially admitted on 02/27/25 for shock and respiratory failure. Pt required intubation and ultimately tracheostomy, and continues to require ventilator support. Pt underwent attempted PEG placement 03/16/25 for enteral nutrition however he is not a candidate due to a small gastric pouch related to his previous surgery. Pt has been receiving tube feeds via NG, general surgery consulted for consideration of open gastrostomy placement Review of Systems Review of Systems ROS Unobtainable: unobtainable due to mental status Meds Home Medications and Allergies Home Medications ?Medication ?Instructions ?Recorded ?Confirmed ?Type amlodipine 10 mg tablet 10 mg PO 1XD 02/27/25 02/27/25 History gabapentin 600 mg tablet 600 mg PO 3XD 02/27/25 02/27/25 History glipizide 10 mg tablet 10 mg PO 1XD 02/27/25 02/27/25 History losartan 25 mg tablet 25 mg PO 1XD 02/27/25 02/27/25 History metformin 1,000 mg tablet 1,000 mg PO 2XD 02/27/25 02/27/25 History metoprolol succinate 100 mg 100 mg PO 2XD 02/27/25 02/27/25 History tablet,extended release 24 hr tramadol 50 mg tablet 50 mg PO 3XD 02/27/25 02/27/25 History Allergies Allergy/AdvReac Type Severity Reaction Status Date / Time No Known Allergies Allergy Verified 02/27/25 06:45 Exam Vital Signs Temp Pulse Resp BP Pulse Ox O2 Del Method O2 Flow Rate 97.5 F 83 20 123/85 H 94 L Mechanical Ventilation 50 04/09/25 04:00 04/09/25 10:03 04/09/25 04:00 04/09/25 10:03 04/09/25 07:00 04/09/25 04:00 04/08/25 08:00 FiO2 50 04/09/25 07:00 Constitutional Constitutional: no acute distress Routine Respiratory Exam Respiratory: Present patient mechanically ventilated Results Results: Laboratory Laboratory results: results reviewed Assessment & Plan Plan 64M with HTN, DMII, atrial fibrillation, history of gastric bypass, and super morbid obesity (BMI 68) who was initially admitted on 02/27/25 for shock and respiratory failure s/p tracheostomy placement, with NG in place for enteral feeding. According to ACS NSQIP risk calculator, pt has a nearly 60% risk of serious complication from open gastrostomy placement, and is also unfortunately not able to undergo CT scan to evaluate abdominal wall thickness due to his size (also meaning he would not be able to undergo a CT postoperatively to evaluate for any potential complications). Given these factors, open gastrostomy confers a prohibitively high risk so I do not recommend this procedure. If feeding tubes are available this can replace the NG, it is smaller in caliber and can be more tolerable Please reconsult if needed
--- NOTE | 2025-04-09 11:34 | ESPR_ITS ---
RE: DAWIT CRAWFORD : 1960 DATE OF SERVICE: 04/08/2025 SUBJECTIVE: The patient is seen for cardiovascular assessment, remains in atrial fibrillation. Heart is still well compensated, but still has a lot of generalized edema including abdominal wall and continues on oral diuretic. She also has a jugular venous thrombosis, requiring anticoagulation. Clinically, he is still not comfortable, having some neck pain and shortness of breath and ventilator with tracheostomy. OBJECTIVE: Vital Signs: Blood pressure 120/80, pulse 70, irregular, atrial fibrillation, oxygen saturation 94% on mechanical ventilation 50% on FiO2. Neck: Supple. Lungs: Decreased breath sounds. Heart: S1 and S2, irregular. Abdomen: Morbidly obese, soft, lateral wall edema. Extremities: edema. Rest of the exam unremarkable. Neurologic: The patient is alert and awake, following commands. LABORATORY DATA: Shows hemoglobin 10.6, stable. Chemistry panel, his creatinine stable at 1.2. Potassium is 4. IMPRESSION: 1. Acute on chronic respiratory failure, on a tracheostomy. 2. Atrial fibrillation, rate control. 3. Internal jugular vein thrombosis, on therapeutic anticoagulation. RECOMMENDATIONS: Continue with IV heparin for now and the patient is also awaiting a transfer at tertiary center. Cardiac rebollar, the patient is stable to be transferred if indicated. DT: 08:55:10 TT: 10:39:00 Ref: [id number] - TID: [id number]
[2025-04-09 11:51] LABS: Partial Thromboplastin Time > 139.0 Seconds (22.0-36.0)
--- NOTE | 2025-04-09 13:05 | ESPR_ITS ---
<Statement entered by Lenora John MD - 04/10/25 20:12> I evaluated the patient and patient appears to be stable to be transferred to a tertiary care center clinically stable A-fib rate controlled heart failure continues to be problem with swelling of the abdomen and extremities evaluated patient with resident physician agree with treatment plan recommendation as documented by PGY 2 Dr. Isaac Documentation for date of: 04/09/25 Subjective Subjective Interval history: Patient was seen and examined at bedside. No acute overnight events. Patient is on heparin drip for DVT. He is on 2 mg Bumex twice daily, his edema is improving. Primary team continues to discuss with general surgery possibility to place PEG tube surgical way. Hemoglobin is stable and sodium 137. Exam Vital Signs Temp Pulse Resp BP Pulse Ox O2 Del Method O2 Flow Rate 97.4 F 57 L 21 H 123/85 H 98 Mechanical Ventilation 50 04/09/25 08:00 04/09/25 12:49 04/09/25 08:00 04/09/25 10:03 04/09/25 12:49 04/09/25 08:00 04/08/25 08:00 FiO2 50 04/09/25 12:49 Narrative Exam Gen: Well-developed and well-nourished morbidly obese male. NG tube in place. HEENT: NCAT, PERRLA, EOMI, MMM, anicteric conjunctivae, tracheostomy in place. CVS: Decreased heart sounds, normal S1 and S2. RRR. No M/R/G. Resp: Decreased breath sounds B/L. No rhonchi, rales, crackles or wheezing. Abd: soft, morbidly obese, non-tender, non-distended. BS+ in all 4 quadrants. Pitting edema over bilateral flanks and sides. MSK: Good ROM in BUE & BLE. 2+ pitting edema BLE. Neuro: Limited exam due to medical condition. Objective Labs 04/09/25 02:14 04/09/25 02:14 Labs: Laboratory Results - last 24 hr 04/08/25 04/09/25 04/09/25 15:54 02:14 10:39 WBC 11.4 H RBC 3.50 L Hgb 9.9 L Hct 30.6 L MCV 87 MCH 28.3 MCHC 32.4 RDW Std Deviation 50.3 H Plt Count 326 D Neut % (Auto) 68 Lymph % (Auto) 16 [place] % (Auto) 11 Eos % (Auto) 2 Baso % (Auto) 0 Neut # (Auto) 7.8 H Lymph # (Auto) 1.8 [place] # (Auto) 1.2 H Eos # (Auto) 0.3 Baso # (Auto) 0.0 Immature Gran # (Auto) 0.23 H Absolute Nucleated RBC 0.00 Immature Gran % 2 H Nucleated RBC % 0 APTT 30.5 > 139.0 H* D > 139.0 H* Sodium 137 Potassium 3.8 Chloride 95 L Carbon Dioxide 36.3 H Anion Gap 6 L BUN 26 H Creatinine 1.2 Estim Creat Clear Calc 101.5 eGFR > 60 BUN/Creatinine Ratio 22 H Glucose 126 H Calculated Osmolality 280 Calcium 8.0 L Corrected Calcium 8.8 Phosphorus 2.5 Magnesium 1.7 Total Bilirubin 0.4 AST 32 ALT 12 Alkaline Phosphatase 165 H Total Protein 5.3 L Albumin 3.0 L Globulin 2.3 Albumin/Globulin Ratio 1.3 ABG Interpretation ABG results: 02/27/25 02/28/25 03/01/25 06:55 04:57 04:39 ABG pH 7.27 L 7.37 D 7.41 ABG pCO2 57 H 48 44 ABG pO2 101 78 L D 69 L ABG HCO3 26 28 H 28 H ABG O2 Saturation 98 95 93 ABG Base Excess -2 2 3 VBG pH VBG pCO2 VBG pO2 VBG Base Excess 03/01/25 03/01/25 03/02/25 13:15 14:52 04:25 ABG pH Cancelled 7.41 7.45 ABG pCO2 Cancelled 45 42 ABG pO2 Cancelled 53 L* 66 L ABG HCO3 Cancelled 28 H 29 H ABG O2 Saturation Cancelled 85 L 92 ABG Base Excess Cancelled 3 5 H VBG pH VBG pCO2 VBG pO2 VBG Base Excess 03/03/25 03/05/25 03/05/25 04:40 16:30 16:55 ABG pH 7.45 Cancelled 7.34 L D ABG pCO2 43 Cancelled 72 H* D ABG pO2 72 L Cancelled 83 ABG HCO3 30 H Cancelled 38 H ABG O2 Saturation 94 Cancelled 95 ABG Base Excess 5 H Cancelled 9 H VBG pH VBG pCO2 VBG pO2 VBG Base Excess 03/05/25 03/06/25 03/06/25 23:36 01:48 05:22 ABG pH 7.37 7.34 L 7.52 H D ABG pCO2 67 H 74 H* 47 D ABG pO2 150 H D 88 D 160 H D ABG HCO3 38 H 40 H 38 H ABG O2 Saturation 99 H 96 100 H ABG Base Excess 10 H 11 H 13 H VBG pH VBG pCO2 VBG pO2 VBG Base Excess 03/06/25 03/07/25 03/07/25 17:10 05:00 14:03 ABG pH 7.46 H ABG pCO2 53 H ABG pO2 65 L D ABG HCO3 38 H ABG O2 Saturation 93 ABG Base Excess 12 H VBG pH 7.50 7.52 VBG pCO2 50 47 VBG pO2 70 H 61 H VBG Base Excess 13 H 14 H 03/09/25 03/09/25 03/09/25 08:17 10:25 17:29 ABG pH 7.25 L D 7.29 L 7.29 L ABG pCO2 93 H* D 85 H* 88 H* ABG pO2 81 L 57 L* D 85 D ABG HCO3 41 H 40 H 43 H ABG O2 Saturation 95 89 L 97 ABG Base Excess 10 H 10 H 12 H VBG pH VBG pCO2 VBG pO2 VBG Base Excess 03/09/25 03/10/25 03/10/25 23:24 07:17 11:25 ABG pH 7.32 L 7.28 L 7.31 L ABG pCO2 78 H* D 90 H* D 81 H* ABG pO2 69 L 47 L* D 63 L ABG HCO3 40 H 43 H 41 H ABG O2 Saturation 94 80 L 93 ABG Base Excess 11 H 12 H 11 H VBG pH VBG pCO2 VBG pO2 VBG Base Excess 03/10/25 03/11/25 03/12/25 16:56 04:19 04:42 ABG pH 7.40 7.48 H 7.43 ABG pCO2 66 H D 54 H D 59 H ABG pO2 68 L 67 L 77 L ABG HCO3 41 H 40 H 39 H ABG O2 Saturation 94 94 96 ABG Base Excess 13 H 15 H 12 H VBG pH VBG pCO2 VBG pO2 VBG Base Excess 04/03/14/25 03/15/25 04:32 04:25 04:37 ABG pH 7.47 H 7.46 H 7.41 ABG pCO2 53 H 50 H 56 H ABG pO2 60 L 70 L 69 L ABG HCO3 38 H 36 H 35 H ABG O2 Saturation 93 95 95 ABG Base Excess 13 H 10 H 9 H VBG pH VBG pCO2 VBG pO2 VBG Base Excess 03/16/25 03/16/25 03/17/25 04:54 09:53 04:35 ABG pH 7.45 7.48 H 7.47 H ABG pCO2 51 H 49 H 53 H ABG pO2 68 L 34 L* D 87 D ABG HCO3 35 H 37 H 38 H ABG O2 Saturation 95 67 L 97 ABG Base Excess 10 H 12 H 13 H VBG pH VBG pCO2 VBG pO2 VBG Base Excess 03/18/25 03/19/25 03/26/25 04:26 05:00 08:20 ABG pH 7.44 7.45 7.46 H ABG pCO2 57 H 55 H 54 H ABG pO2 107 D 73 L D 79 L ABG HCO3 38 H 38 H 38 H ABG O2 Saturation 99 H 96 97 ABG Base Excess 12 H 12 H 12 H VBG pH VBG pCO2 VBG pO2 VBG Base Excess Quality Measures Quality Measures VTE therapy and sepsis Current suspected stage: sepsis Possible source: pulmonary Blood cultures ordered: completed in ED Antibiotic ordered: Yes Advance care planning discussed with:: patient Assessment & Plan Assessment Current Active Medications: Generic Name Dose Route Start Last Admin Trade Name Freq PRN Reason Stop Dose Admin Hydrocodone Bitart/Acetaminophen 1 tab 04/08/25 15:12 04/08/25 15:34 Hydrocodone/Apap 5/325 Tablet PO 04/13/25 15:11 1 tab Q8HR PRN Administration Pain 4-7 Amiodarone HCl 200 mg 04/03/25 09:00 04/09/25 10:03 Amiodarone Hcl 200 Mg Tablet NG 05/03/25 08:59 200 mg QDAY KOURTNEY Administration Amlodipine Besylate 10 mg 03/31/25 07:30 04/09/25 10:02 Amlodipine Besylate 5 Mg Tablet NG 04/19/25 07:29 10 mg DAILY KOURTNEY Administration Ascorbic Acid 500 mg 03/27/25 12:00 04/09/25 10:02 Ascorbic Acid 250 Mg Tablet NG 04/26/25 11:59 500 mg BID KOURTNEY Administration Bumetanide 2 mg 04/07/25 09:30 04/09/25 10:02 Bumetanide 0.5 Mg Tablet PO 05/07/25 09:29 2 mg QDAY KOURTNEY Administration Bumetanide 2 mg 04/08/25 21:00 04/08/25 20:21 Bumetanide Inj 0.25 Mg/Ml Vial 4 Ml IVP 05/08/25 20:59 Not Given QPM KOURTNEY Collagenase 0 gm 04/01/25 11:30 04/09/25 10:04 Collagenase Oint 30 Gm Tube TOP 05/01/25 11:29 1 applicatio DAILY KOURTNEY Administration Cyclobenzaprine HCl 5 mg 03/26/25 08:25 04/03/25 12:18 Cyclobenzaprine 5 Mg Tablet PO 04/25/25 08:24 5 mg TID PRN Administration MUSCLE SPASMS Protocol Heparin Sodium/Dextrose 25,000 unit in 250 mls @ 18 mls/hr 04/01/25 16:45 04/09/25 12:58 Heparin In D5w Ivpb IV 04/15/25 16:44 13.96 units/kg/hr .[id number] [facility] 28.032 mls/hr Titration Protocol 8.964 UNITS/KG/HR Metronidazole 500 mg in 100 mls @ 200 mls/hr 04/02/25 15:51 04/09/25 05:43 Flagyl 500 Mg Iv IV 04/09/25 15:50 200 mls/hr Q8HR KOURTNEY Administration Cefepime HCl 2 gm/ Sodium 50 mls @ 100 mls/hr 04/04/25 14:00 04/09/25 05:07 Chloride IV 04/11/25 13:59 100 mls/hr Q8HR KOURTNEY Administration Insulin Glargine 38 unit 03/30/25 09:00 04/09/25 08:47 Insulin Glargine (Lantus) 5 Unit/0.05 Ml (Per 5 Units) SC 04/29/25 08:59 38 unit QDAY KOURTNEY Administration Insulin Human Lispro 0 unit 03/25/25 12:00 04/09/25 12:14 Insulin Lispro (Admelog) 1 Unit/0.01 Ml Unit SC 04/24/25 11:59 Not Given Q6HR KOURTNEY Protocol Lansoprazole 30 mg 03/23/25 09:30 04/09/25 10:02 Lansoprazole 30 Mg Tab.Rap.Dr CHAPIN 04/21/25 08:59 30 mg QDAY KOURTNEY Administration Multivitamins/Minerals 15 ml 03/27/25 12:00 04/09/25 10:02 Multivitamin 15 Ml Udc NG 04/26/25 11:59 15 ml QDAY KOURTNEY Administration Sertraline HCl 25 mg 04/07/25 21:00 04/08/25 20:15 Sertraline Hcl 25 Mg Tablet PO 05/07/25 20:59 25 mg HS KOURTNEY Administration Zinc Sulfate 220 mg 03/27/25 12:00 04/09/25 10:03 Zinc Sulfate 220 Mg Capsule NG 04/10/25 11:59 220 mg QDAY KOURTNEY Administration Plan 64-year-old male with significant past medical history of hypertension, diabetes mellitus, A-fib was admitted to the ICU on 02/27/2025 after coming in with altered mental status and shortness of breath, intubated for acute hypoxic respiratory failure and had suspected obesity hypoventilation syndrome/obstructive sleep apnea/pneumonia and acute kidney injury. He was extubated on 03/03 and downgraded then re-intubated on 03/06 due to confusion and tachypneia. He was then extubated and downgraded to the floor on 03/07. On 03/10, patient again had decreased mentation on the BiPAP so was reintubated and upgraded. Cardiology has been consulted for suspected heart failure. #Right internal jugular venous thrombosis. 04/01 US showed Positive for occlusive thrombus in the right internal jugular vein. Patient was started on heparin drip.Reeat US on 04/06 showed findings remain positive for right internal jugular deep vein thrombus. Plan: - continue heparin drip. #Right congestive heart failure with preserved EF. #Severe BASIA/OHS. Echo on this admission showed poor quality images secondary to the patient's body habitus so was a technically limited study. Suspect chronic right heart failure in the setting of chronic obesity hypoventilation syndrome and obstructive sleep apnea. Currently appears to be more pulmonary component to respiratory failure than cardiac. Requiring ventilation support. -Echo 02/27/25: IVC appears to be dilated and also estimated RVSP also appears to be at least moderately elevated at 55 mmHg. 03/14/25: Will hold dirutics for now , he was given IV fluids yesterday. 03/15/25 : Reading catheter was placed by ICU team which showed PA pressure of more than 30s and wedge pressure was also high . started him on bumex drip . will continue the albumin . he is getting his peg tube today 03/16/25: ICU team tried another Reading catheter today which showed RA pressure of 25, PA pressure of 38, PCWP of 23. Plan is to continue Bumex for him. Cr stable at 2.5 03/17/2025: Net fluid balance -3350 cc. ICU team held Bumex due to significant electrolyte abnormalities, potassium 2.7. Once repleted Bumex drip will be resumed. Continue current management and monitor patient. 03/18/2025: net fluid balance -1650 , he received 1 dose of diamox yesterday. will continue to diures, he is off ventillor in blowby with PRN ventillator when he gets tired. 03/19/2025: no acute overnight event.Balance of -950 . ICU team put a swan catheter which showed he is adequately diressed for now, so bumex on hold for now. pending pegtube placement, its been difficult to do the procedure consedering his Rouxy history. Plan: 03/20/2025: Will hold dirutics for now, he was given IV LR and FWF via NG for hypernatremia. 03/21/2025: no acute overnight event. free water flushes increase today for hypernatremia . Xarelto resumed . bumex on hold ,Dr Doty recommending jejunostomy placement. 03/22/2025:Patient has tracheostomy inplace and is unable to communicate much Telemetry reviewed and rest of the vital signs including the heart rate appears to be stable. Labs showed that the patient still continues to have hyponatremia at 150 and also has elevated creatinine at 2.6 and a BUN of 66. Patient is on renal water flushes for the hyponatremia and creatinine continues to improve and baseline creatinine appears to be around 2.0 Recommend to continue with free water flushes for now. Patient is morbidly obese with multiple comorbidities as mentioned below and overall prognosis appears to be poor Primary team to discuss with the family regarding goals of care. 03/23/2025:Continued on free water flushes, sodium 150 > 149. Renal function showing minor improvement with BUN 63, CR 2.4, EGFR 29. Poor urine output. 2/3+ LE edema noted on exam again. Vitals relatively normal, BP 121/92, HR 98 although spikes of HR 120s noted on tele, continued on blow-by and satting well.? Continue with free-water flushes, monitor renal function closely,Continue AMIODARONE 200 mg daily, Continue AMLODIPINE 10 mg daily,Continue XARELTO 20 mg, Okay holding BUMEX 2 mg IV BID as per nephro team, may need HD eventually if renally function not improving, kadi givens persisting edema. 03/25/2025: no acute overnight event, he was given diamox by nephrology speech therapist was at bedside , kidney function improving . Na is normal today at 143 . Bumex still on hold. .Continue amiodarone 200 mg daily, Amlodipine 10 mg daily, Continue XARELTO 20 mg 03/26/2025: no acute overnight event , primary team reffered him to hospice pending decision . Bumex still on hold. .Continue amiodarone 200 mg daily, Amlodipine 10 mg daily, Continue XARELTO 20 mg 03/27/2025: no acute overnight event . Bumex still on hold. .Continue amiodarone 200 mg daily, Amlodipine 10 mg daily, Continue XARELTO 20 mg, his na is 147 . pending disposition as pt patients need more time to decide. 03/28/2025: no acute overnight event . Bumex still on hold. .Continue amiodarone 200 mg daily, Amlodipine 10 mg daily, Continue XARELTO 20 mg, his na is 147 . pending disposition . 03/29/2025: no acute overnight event . Bumex still on hold. .Continue amiodarone 200 mg daily, Amlodipine 10 mg daily, Continue XARELTO 20 mg, his na is 147 . pending disposition He is pending transfer for IR or surgical jejunostomy or PEG placement due to history of Diego-en-Y. 04/01/25: patient might benefit from Bumex, his sodium is 137 and edema is still pretty significant. Resume Bumex 2 mg PO daily. Pending placement. 04/02/25: Continue Bumex 2 mg daily. Sodium today 135. Vitals are stable. 04/03/2025: no acute overnight event. He is back on ventilator. He was on blow- by for a brief amount of time in the morning.Continue Bumex 2mg Q day. he is having good urine output. 04/04/2025: no acute overnight events. In blow by . Continue bumex, having good urine output. 04/05/2025: no acute overnight event. Venous Doppler ultrasound showed positive for occlusive thrombus in the right internal jugular vein. Patient is on heparin drip. #Atrial fibrillation, rate controlled. Patient notes positive history of afib. He had previously been on metoprolol succinate 100 mg BID. Currently appears rate-controlled in the 100s. CHADS-VASc score 4. Plan: -continue Xarelto(on hold ), on heparin drip -Continue amiodarone 200 mg qday. -Keep potassium >4.0 and mag >2.0. Rest of conditions to continue current management per primary team: #Acute hypoxic respiratory failure s/p tracheostomy. #Morbid obesity. #Community acquired pneumonia. #Elevated LFTs, resolved. #Hyperbilirubinemia, resolved. #History of type 2 diabetes. #Lactic acidosis, resolved. #KENIA on CKD. #Hypernatremia. Discussed the patient with my attending Dr John. Poncho Espinosa MD, PGY 2. Disclaimer: This note was dictated by speech recognition. Minor errors in international logistics manager may be present due to voice recognition software.
--- NOTE | 2025-04-09 13:56 | ESDS_ITS ---
Planned Discharge Date 04/09/25 DS: Providers Provider Date of admission: 02/27/25 09:24 Primary care physician: Physician No Primary/Family Admitting Provider: Angelique Maxwell MD Attending Provider on Admission: Julius Turcios DO Consults: 03/02/25 19:20 Referral Wound Care Routine Comment: Instructions: open areas to scrotum DTI to right buttock 03/03/25 16:28 Referral Physical Therapy Stat Comment: Physician Instructions: 03/04/25 10:12 Consult to Cardiology Routine Comment: Right heart failure and cardiorenal syndrome, afib Consulting Provider: Lenora John 03/12/25 11:31 Consult to General Surgery Routine Comment: Consulting Provider: Kalpesh Kinney 03/15/25 09:33 Consult to Nephrology Routine Comment: Consulting Provider: Alejandra Gannon 03/15/25 09:46 Consult to Gastroenterology Routine Comment: peg tube insertion Consulting Provider: Ghulam Doty 03/19/25 08:41 Referral Speech Therapy Routine Comment: 03/26/25 11:43 Referral Hospice Routine Comment: 03/26/25 14:19 Referral Nutritional Services Routine Comment: Instructions: Deep tissue injury over coccyx Referral Wound Care Routine Comment: Deep tissue injury over coccyx 04/01/25 11:22 Referral Nutritional Services Routine Comment: Sacral pressure injury progression Referral Wound Care Routine Comment: Sacral pressure injury progression 04/08/25 10:48 Consult to General Surgery Routine Comment: Gastrostomy tube placement Consulting Provider: Negrita Negron Attending Provider on DC: Tres Magana MD Discharging Provider: Tres Magana MD DS: Diagnosis Problem List Completed Was Problem List Reviewed/Reconciled?: Yes Hospital Course Hospital Course Hospital course: Kofi is a 64-year-old male with past medical history of morbid obesity, type II DM, HTN, A-fib, chronic respiratory failure, BASIA/OHS, and R sided diastolic HF who was admitted to [facility] on 02/27/2025 for acute on chronic respiratory failure requiring trachestomy placement. Pt had arrived to the ED hypotensive and febrile. Initial labs were relevant for leukocytosis (16.5), ABG (pH 7.27, PCO2 of 57, and pO2 of 101), hyperkalemia (5.5), KENIA (creatinine 2.1), lactic acidosis (5.5 down trended to 3.6), hyperbilirubinemia (1.3, transaminitis (AST 129), elevated BNP (368), elevated procalcitonin (3.14). Initial imaging included chest x-ray which showed some bilateral opacities which seems like pulmonary edema versus pneumonia and head CT was negative for any acute hemorrhage, mass effect, or midline shift. Pt was admitted to the ICU for shock and respiratory failure. During his long hospital stay including in the ICU, patient was treated for pneumonia, heart failure and was eventually weaned off mechanical ventilation, however patient continued to require respiratory support and it was then recommended for patient to get tracheostomy due to his chronic respiratory failure and required reintubation. Successful trachestomy placement by Dr. Kinney was done on Mar 14 2025 with a size 8 extra long cuff trachestomy. Pt continued to improve from an infection and respiratory standpoint, however pt was then diagnosed with right sided diastolic heart failure after R heart catherization. Pt continued to improve with diuresis. There was a concern for dysphagia and aspiration and pt was seen by speech therapy. PEG tube was attempted to be placed by in house GI, Dr. Doty in which procedure was not successful due to patient having Rou-En-Y hx and a small gastric pouch. Pt was then downgraded to the floors and continued to have risk for aspiration. NGT was placed for patient for temporary feedings, however, pt continued to have trouble with swallowing and required NGT to remain. Pt also had trouble with communicating and speaking as he did not tolerate PMS valve recommended by speech therapy. Pt also developed a RIJ DVT in which he was managed with heparin on. Pt was attempted to be transferred to higher level of care with GI/Bariatric team for IR Jejunostomy over the course of the next couple weeks. General Surgery was consulted for possible open jejunostomy, however due to inability to evaluate abdominal wall thickness as pt cannot have CT scan due to body habitus, surgery was not recommended at the time. [facility] [facility] had been presented the case and accepted patient for transfer for further evaluation. Pt was then discharged with the following instructions. Discharge Instructions: Follow up with PCP upon D/C Continue to take medicines as prescribed You will need strict follow up with GI, Bariatric surgery, and Cardiology Return to ED if your symptoms worsen or return Problem List: #Acute on Chronic Hypoxic Hypercapnic Respiratory Failure #Aspiration Pneumonia #Obesity hypoventilation syndrome and obstructive sleep apnea #Dysphagia #Tracheostomy #Right internal jugular venous thrombosis #Right arm swelling #Right diastolic CHF, improved #Hx of A-fib #Decubitus ulcer #Chronic back pain #Morbid obesity #DM2 #Normocytic Anemia #MDD #Community-acquired pneumonia, Enterobacter [place]oe #Leukocytosis, resolved #Enterobacter cloacoe pneumonia, resolved. #Acute encephalopathy, resolved #KENIA resolved #Hypokalemia resolved #Hypernatremia resolved #Metabolic alkalosis resolved Discharge summary was reviewed with my attending Dr. Izzy Shields, PGY-1 Time Spent with Patient Time attestation: Total time spent providing and/or coordinating discharge services: Time spent: Greater than 30 minutes Exam Vital Signs Temp Pulse Resp BP Pulse Ox O2 Del Method O2 Flow Rate 97.4 F 57 L 21 H 123/85 H 98 Mechanical Ventilation 50 04/09/25 08:00 04/09/25 12:49 04/09/25 08:00 04/09/25 10:03 04/09/25 12:49 04/09/25 08:00 04/08/25 08:00 FiO2 50 04/09/25 12:49 Narrative Exam General: AAOx3, in mild distress, severely morbidly obese HEENT: Dry mucous membranes, conjunctiva clear, EOMI, PERRLA, trachestomy Cardiovascular: Ejection systolic murmur, radial pulses +2 bilat, irregularly irregular, Pulmonary: Currently on ventilation PEEP of 8, FiO2 50 and not blow-by GI: No tenderness to light or deep palpitation, no guarding, rigidity, rebound tenderness or distension Extremities: Pitting +2 bilaterally edema in lower extremities bilaterally, dorsalis pedis pulses +2 bilaterally, anasarca, right upper extremity more edematous than left Back: Decubitis ulcer present that appears to be foul smelling and necrotic, no bone visualization Neuro: AAOx3, no focal motor or sensory deficits in the UE or LE bilat Discharge Plan Plan Patient Disposition: Xfer Other Facility Pt Being Transferred to: Other-Specify in comment Service Needed for Transfer: General Surgery Disposition Comment: [facility] Patient condition on transfer: Stable and Benefits outweigh risks Care Plan Goals: Discharge Instructions: Follow up with PCP upon D/C Continue to take medicines as prescribed You will need strict follow up with GI, Bariatric surgery, and Cardiology Return to ED if your symptoms worsen or return Prescriptions/Referrals Prescriptions/Med Rec: New amiodarone 200 mg Tablet 200 mg NG QDAY Qty: 0 0RF amlodipine 5 mg Tablet 10 mg NG DAILY Qty: 0 0RF ascorbic acid (vitamin C) [Vitamin C] 250 mg Tablet 500 mg NG BID Qty: 0 0RF bumetanide 0.5 mg Tablet 2 mg PO QDAY Qty: 0 0RF bumetanide 0.25 mg/mL Solution 1 mg IVP QPM Qty: 0 0RF bumetanide 0.25 mg/mL Solution 2 mg IVP QPM Qty: 0 0RF insulin glargine [Lantus U-100 Insulin] 100 unit/mL Solution 38 unit SCi QDAY Qty: 0 0RF hydrocodone-acetaminophen 5-325 mg Tablet 1 tab PO Q8HR PRN (Reason: Pain 4-7) Qty: 0 0RF metronidazole in NaCl (iso-os) 500 mg/100 mL Piggyback 500 mg IV Q8HR Qty: 0 0RF sertraline 25 mg Tablet 25 mg PO HS Qty: 0 0RF insulin lispro 100 unit/mL Solution 0 unit SCi Q6HR Qty: 0 0RF lansoprazole 30 mg Tablet,Disintegrat, Delay Rel 30 mg NG QDAY Qty: 0 0RF heparin (porcine) in 5 % dex 25,000 unit/250 mL(100 unit/mL) Parenteral Solution 25,000 unit IV .[id number] Qty: 0 0RF zinc sulfate 50 mg zinc (220 mg) Capsule 220 mg NG QDAY Qty: 0 0RF [id number] gluconate 12 mg iron/15 mL Liquid 15 ml NG QDAY Qty: 0 0RF cyclobenzaprine 5 mg Tablet 5 mg PO TID PRN (Reason: Muscle Spasms) Qty: 0 0RF Continued losartan 25 mg tablet 25 mg PO 1XD Patient Comments: TAKE 1 TABLET BY MOUTH EVERY DAY amlodipine 10 mg tablet 10 mg PO 1XD Patient Comments: TAKE 1 TABLET BY MOUTH EVERY DAY metoprolol succinate 100 mg tablet extended release 24 hr 100 mg PO 2XD Patient Comments: TAKE 1 TABLET BY MOUTH TWICE A DAY tramadol 50 mg tablet 50 mg PO 3XD Patient Comments: TAKE 2 TABLETS BY MOUTH 3 TIMES A DAY NEEDED metformin 1,000 mg tablet 1,000 mg PO 2XD Patient Comments: TAKE 1 TABLET BY MOUTH TWICE A DAY glipizide 10 mg tablet 10 mg PO 1XD Patient Comments: TAKE 1 TABLET BY MOUTH EVERY DAY gabapentin 600 mg tablet 600 mg PO 3XD Patient Comments: TAKE 1 TABLET BY MOUTH THREE TIMES A DAY Referrals: No Primary/Family,Physician [Primary Care Provider] - Patient/Caregiver Discharge Instructions Education Materials: What Is a?Tracheostomy?, Weight Manage Overcome Barriers, Bariatric Surg Dc, Bariatric Surg Risks Complications, Making Bariatric Surgery Work for You, Preventing Common Respiratory ..., Identifying Your Heart Risks Print Language: Icelandic Stand Alone Forms: Mikki Award Info., Patient Portal Info Letter Discharge Order Discharge Orders: Discharge (Routine); Ordered 04/09/25 Ordered By: Feliz Haas Quality Discharge Quality Measures VTE prophylaxis (Xarleto ) Attestestation MD Attestation I reviewed labs, imaging, EKG, home medications and prior available records. Face to face evaluation was performed by me. I have personally examined the patient and discussed assessment and plan with the IM team. I reviewed the resident note and agree with the plan with exceptions as below. Acute on chronic hypoxic respiratory failure Status post tracheostomy Aspiration pneumonia KENIA Dysphagia Morbid obesity Atrial fibrillation with controlled ventricular rhythm DVT of upper extremity Insulin-dependent diabetes mellitus Essential hypertension Continue oxygen via tracheostomy Discussed with transfer nurse: Will be transferred to [place] for bariatric surgery services for PEG tube placement Continue heparin drip for the DVT Continue insulin therapy and antihypertensive treatment Weight management Time spent is 55 minutes. More than 50% of the time was spent on patient education and coordination of care.
[2025-04-09] MEDS: Heparin/D5w 25K 250 ML Ivpb 25,000 UNIT/250 ML BAG 28.032 UNIT IV (15:16)
--- NOTE | 2025-04-09 18:56 | ESPR_ITS ---
Documentation for date of: 04/09/25 Subjective Subjective Interval history: Patient accepted at [facility] Will be transferred there for GJ placement Exam Vital Signs Temp Pulse Resp BP Pulse Ox O2 Del Method O2 Flow Rate 97.3 F 95 21 H 120/78 95 Mechanical Ventilation 50 04/09/25 16:00 04/09/25 16:00 04/09/25 16:00 04/09/25 16:00 04/09/25 16:00 04/09/25 16:00 04/08/25 08:00 FiO2 50 04/09/25 12:49 Objective Labs 04/09/25 02:14 04/09/25 02:14 Labs: Laboratory Results - last 24 hr 04/09/25 04/09/25 02:14 10:39 WBC 11.4 H RBC 3.50 L Hgb 9.9 L Hct 30.6 L MCV 87 MCH 28.3 MCHC 32.4 RDW Std Deviation 50.3 H Plt Count 326 D Neut % (Auto) 68 Lymph % (Auto) 16 [place]ke % (Auto) 11 Eos % (Auto) 2 Baso % (Auto) 0 Neut # (Auto) 7.8 H Lymph # (Auto) 1.8 [place] # (Auto) 1.2 H Eos # (Auto) 0.3 Baso # (Auto) 0.0 Immature Gran # (Auto) 0.23 H Absolute Nucleated RBC 0.00 Immature Gran % 2 H Nucleated RBC % 0 APTT > 139.0 H* D > 139.0 H* Sodium 137 Potassium 3.8 Chloride 95 L Carbon Dioxide 36.3 H Anion Gap 6 L BUN 26 H Creatinine 1.2 Estim Creat Clear Calc 101.5 eGFR > 60 BUN/Creatinine Ratio 22 H Glucose 126 H Calculated Osmolality 280 Calcium 8.0 L Corrected Calcium 8.8 Phosphorus 2.5 Magnesium 1.7 Total Bilirubin 0.4 AST 32 ALT 12 Alkaline Phosphatase 165 H Total Protein 5.3 L Albumin 3.0 L Globulin 2.3 Albumin/Globulin Ratio 1.3 Impressions Impression: Failure to thrive Patient being transferred to [facility] for GJ placement ABG Interpretation ABG results: 02/27/25 02/28/25 03/01/25 06:55 04:57 04:39 ABG pH 7.27 L 7.37 D 7.41 ABG pCO2 57 H 48 44 ABG pO2 101 78 L D 69 L ABG HCO3 26 28 H 28 H ABG O2 Saturation 98 95 93 ABG Base Excess -2 2 3 VBG pH VBG pCO2 VBG pO2 VBG Base Excess 03/01/25 03/01/25 03/02/25 13:15 14:52 04:25 ABG pH Cancelled 7.41 7.45 ABG pCO2 Cancelled 45 42 ABG pO2 Cancelled 53 L* 66 L ABG HCO3 Cancelled 28 H 29 H ABG O2 Saturation Cancelled 85 L 92 ABG Base Excess Cancelled 3 5 H VBG pH VBG pCO2 VBG pO2 VBG Base Excess 03/03/25 03/05/25 03/05/25 04:40 16:30 16:55 ABG pH 7.45 Cancelled 7.34 L D ABG pCO2 43 Cancelled 72 H* D ABG pO2 72 L Cancelled 83 ABG HCO3 30 H Cancelled 38 H ABG O2 Saturation 94 Cancelled 95 ABG Base Excess 5 H Cancelled 9 H VBG pH VBG pCO2 VBG pO2 VBG Base Excess 03/05/25 03/06/25 03/06/25 23:36 01:48 05:22 ABG pH 7.37 7.34 L 7.52 H D ABG pCO2 67 H 74 H* 47 D ABG pO2 150 H D 88 D 160 H D ABG HCO3 38 H 40 H 38 H ABG O2 Saturation 99 H 96 100 H ABG Base Excess 10 H 11 H 13 H VBG pH VBG pCO2 VBG pO2 VBG Base Excess 03/06/25 03/07/25 03/07/25 17:10 05:00 14:03 ABG pH 7.46 H ABG pCO2 53 H ABG pO2 65 L D ABG HCO3 38 H ABG O2 Saturation 93 ABG Base Excess 12 H VBG pH 7.50 7.52 VBG pCO2 50 47 VBG pO2 70 H 61 H VBG Base Excess 13 H 14 H 03/09/25 03/09/25 03/09/25 08:17 10:25 17:29 ABG pH 7.25 L D 7.29 L 7.29 L ABG pCO2 93 H* D 85 H* 88 H* ABG pO2 81 L 57 L* D 85 D ABG HCO3 41 H 40 H 43 H ABG O2 Saturation 95 89 L 97 ABG Base Excess 10 H 10 H 12 H VBG pH VBG pCO2 VBG pO2 VBG Base Excess 03/09/25 03/10/25 03/10/25 23:24 07:17 11:25 ABG pH 7.32 L 7.28 L 7.31 L ABG pCO2 78 H* D 90 H* D 81 H* ABG pO2 69 L 47 L* D 63 L ABG HCO3 40 H 43 H 41 H ABG O2 Saturation 94 80 L 93 ABG Base Excess 11 H 12 H 11 H VBG pH VBG pCO2 VBG pO2 VBG Base Excess 03/10/25 03/11/25 03/12/25 16:56 04:19 04:42 ABG pH 7.40 7.48 H 7.43 ABG pCO2 66 H D 54 H D 59 H ABG pO2 68 L 67 L 77 L ABG HCO3 41 H 40 H 39 H ABG O2 Saturation 94 94 96 ABG Base Excess 13 H 15 H 12 H VBG pH VBG pCO2 VBG pO2 VBG Base Excess 03/13/25 03/14/25 03/15/25 04:32 04:25 04:37 ABG pH 7.47 H 7.46 H 7.41 ABG pCO2 53 H 50 H 56 H ABG pO2 60 L 70 L 69 L ABG HCO3 38 H 36 H 35 H ABG O2 Saturation 93 95 95 ABG Base Excess 13 H 10 H 9 H VBG pH VBG pCO2 VBG pO2 VBG Base Excess 03/16/25 03/16/25 03/17/25 04:54 09:53 04:35 ABG pH 7.45 7.48 H 7.47 H ABG pCO2 51 H 49 H 53 H ABG pO2 68 L 34 L* D 87 D ABG HCO3 35 H 37 H 38 H ABG O2 Saturation 95 67 L 97 ABG Base Excess 10 H 12 H 13 H VBG pH VBG pCO2 VBG pO2 VBG Base Excess 03/18/25 03/19/25 03/26/25 04:26 05:00 08:20 ABG pH 7.44 7.45 7.46 H ABG pCO2 57 H 55 H 54 H ABG pO2 107 D 73 L D 79 L ABG HCO3 38 H 38 H 38 H ABG O2 Saturation 99 H 96 97 ABG Base Excess 12 H 12 H 12 H VBG pH VBG pCO2 VBG pO2 VBG Base Excess Assessment & Plan A&P Narrative 64-year-old male with significant past medical history of hypertension, diabetes mellitus, A-fib was admitted to the ICU on 02/27/2025 after coming in with altered mental status and shortness of breath, intubated for acute hypoxic respiratory failure and had suspected obesity hypoventilation syndrome/obstructive sleep apnea/pneumonia and acute kidney injury. He was extubated on 03/03 and downgraded then re-intubated on 03/06 due to confusion and tachypneia. He was then extubated and downgraded to the floor on 03/07. On 03/10, patient again had decreased mentation on the BiPAP so was reintubated and upgraded. Cardiology has been consulted for suspected heart failure. #Right congestive heart failure with preserved EF. #Severe BASIA/OHS. #Hypernatremia. Echo on this admission showed poor quality images secondary to the patient's body habitus so was a technically limited study. Suspect chronic right heart failure in the setting of chronic obesity hypoventilation syndrome and obstructive sleep apnea. Currently appears to be more pulmonary component to respiratory failure than cardiac. Requiring ventilation support. -Echo 02/27/25: IVC appears to be dilated and also estimated RVSP also appears to be at least moderately elevated at 55 mmHg. 03/14/25: Will hold dirutics for now , he was given IV fluids yesterday. 03/15/25 : [place] catheter was placed by ICU team which showed PA pressure of more than 30s and wedge pressure was also high . started him on bumex drip . will continue the albumin . he is getting his peg tube today 03/16/25: ICU team tried another [place] catheter today which showed RA pressure of 25, PA pressure of 38, PCWP of 23. Plan is to continue Bumex for him. Cr stable at 2.5 03/17/2025: Net fluid balance -3350 cc. ICU team held Bumex due to significant electrolyte abnormalities, potassium 2.7. Once repleted Bumex drip will be resumed. Continue current management and monitor patient. 03/18/2025: net fluid balance -1650 , he received 1 dose of diamox yesterday. will continue to diures, he is off ventillor in blowby with PRN ventillator when he gets tired. 03/19/2025: no acute overnight event.Balance of -950 . ICU team put a swan catheter which showed he is adequately diressed for now, so bumex on hold for now. pending pegtube placement, its been difficult to do the procedure consedering his Rouxy history. Plan: 03/20/2025: Will hold dirutics for now, he was given IV LR and FWF via NG for hypernatremia. 03/21/2025: no acute overnight event. free water flushes increase today for hypernatremia . Xarelto resumed . bumex on hold ,Dr Doty recommending jejunostomy placement. #Atrial fibrillation, rate controlled. Patient notes positive history of afib. He had previously been on metoprolol succinate 100 mg BID. Currently appears rate-controlled in the 100s. CHADS-VASc score 4 Plan: - Metoprolol on hold in setting of right heart failure . -Resume Xarelto. -Continue amiodarone 200 mg qday. -Keep potassium >4.0 and mag >2.0. Rest of conditions to continue current management per primary team: #Acute hypoxic respiratory failure s/p tracheostomy. #Morbid obesity. #Community acquired pneumonia. #Elevated LFTs, resolved. #Hyperbilirubinemia, resolved. #History of type 2 diabetes. #Lactic acidosis, resolved. #KENIA on CKD. 03/22/2025: Patient has tracheostomy inplace and is unable to communicate much Telemetry reviewed and rest of the vital signs including the heart rate appears to be stable. Labs showed that the patient still continues to have hyponatremia at 150 and also has elevated creatinine at 2.6 and a BUN of 66. Patient is on renal water flushes for the hyponatremia and creatinine continues to improve and baseline creatinine appears to be around 2.0 Recommend to continue with free water flushes for now. Patient is morbidly obese with multiple comorbidities as mentioned below and overall prognosis appears to be poor Primary team to discuss with the family regarding goals of care. Management of rest of the medical conditions as per primary team and other consultants. Thank you for the consult and allowing me to participate in the care of the patient. Cardiology will continue to follow. Kobe Barahona M.D. Interventional Cardiology Time Spent With Patient Time: Total time spent is greater than 50% in coordination of care (as documented) at patient's floor/unit and/or counseling patient:
--- NOTE | 2025-04-09 19:03 | PC.NURSE ---
Called report to Sofiya CASTELAN at [facility], strip picker scheduled for [id number]
[2025-04-09 19:40] LABS: Partial Thromboplastin Time > 139.0 Seconds (22.0-36.0)
--- NOTE | 2025-04-09 19:50 | PC.NURSE ---
pt transported via ambulance with ems, RN and RT to [facility], VSS no signs of distress noted. Report given to recieving facility by day shift RN
== END 2025-04-09 19:50 | disposition other institution (70) | DRG 4 ==
LOC: SERX 07:09 → SERHOLD 10:00 → S2SX 13:34 → S2NX 03-05 15:11 → S2SX 03-06 08:24 → S2NX 03-07 23:42 → S2SX 03-10 15:17 → S2NX 03-21 02:11
PROVIDERS: Internal Medicine; Specialist; Student in an Organized Health Care Education/Training Program; Surgery; Admitting Provider Internal Medicine; Emergency Provider Emergency Medicine; Visit Provider Student in an Organized Health Care Education/Training Program
PROC: 0DH63UZ Insertion of Feeding Device into Stomach, Percutaneous Approach (ICD-10-PCS; CPT 43246; principal; 2025-03-16 15:00)
DX: J96.21 Acute and chronic respiratory failure with hypoxia (principal); J69.0 Pneumonitis due to inhalation of food and vomit; J15.9 Unspecified bacterial pneumonia; J44.0 Chronic obstructive pulmonary disease with (acute) lower respiratory infection; E66.2 Morbid (severe) obesity with alveolar hypoventilation; E87.0 Hyperosmolality and hypernatremia; E87.1 Hypo-osmolality and hyponatremia; G93.40 Encephalopathy, unspecified; I13.0 Hypertensive heart and chronic kidney disease with heart failure and stage 1 through stage 4 chronic kidney disease, or unspecified chronic kidney disease; Z68.45 Body mass index [BMI] 70 or greater, adult; I48.20 Chronic atrial fibrillation, unspecified; I48.92 Unspecified atrial flutter; I82.C11 Acute embolism and thrombosis of right internal jugular vein; N17.9 Acute kidney failure, unspecified; R57.9 Shock, unspecified; I50.42 Chronic combined systolic (congestive) and diastolic (congestive) heart failure; E87.4 Mixed disorder of acid-base balance; J96.22 Acute and chronic respiratory failure with hypercapnia; R41.82 Altered mental status, unspecified; E87.6 Hypokalemia; E87.5 Hyperkalemia; G89.29 Other chronic pain; K29.70 Gastritis, unspecified, without bleeding; K31.7 Polyp of stomach and duodenum; N18.9 Chronic kidney disease, unspecified; R13.10 Dysphagia, unspecified; T50.2X5A Adverse effect of carbonic-anhydrase inhibitors, benzothiadiazides and other diuretics, initial encounter; T88.4XXA Failed or difficult intubation, initial encounter; E11.22 Type 2 diabetes mellitus with diabetic chronic kidney disease; Z51.5 Encounter for palliative care; Z74.01 Bed confinement status; Z78.1 Physical restraint status; Z79.01 Long term (current) use of anticoagulants; Z79.899 Other long term (current) drug therapy; Z98.84 Bariatric surgery status; Z79.4 Long term (current) use of insulin; R62.7 Adult failure to thrive; L89.159 Pressure ulcer of sacral region, unspecified stage; I50.813 Acute on chronic right heart failure; E88.09 Other disorders of plasma-protein metabolism, not elsewhere classified; E86.0 Dehydration; F32.9 Major depressive disorder, single episode, unspecified; M25.561 Pain in right knee; M25.562 Pain in left knee; M54.2 Cervicalgia; M54.50 Low back pain, unspecified
CPT/HCPCS: 36415; 36600; 70450; 71045; 74018; 76770; 80048; 80053; 80061; 80069; 80074; 80202; 80307; 80320; 80329; 81001; 82043; 82570; 82803; 83036; 83605; 83735; 83880; 84100; 84132; 84145; 84156; 84295; 84484; 84550; 85025; 85610; 85730; 86331; 86635; 87040; 87077; 87081; 87086; 87186; 87205; 87400; 87811; 92526; 92610; 93005; 93306; 93931; 93970; 94002; 94003; 94640; 94660; 94667; 96361; 96365; 96366; 96375; 97162; 99291; A4216; A4217; A4649; A9270; J0131; J0171; J0283; J0295; J0456; J0692; J0696; J1120; J1644; J1650; J1815; J1938; J2060; J2250; J2270; J2358; J2371; J2405; J2470; J2543; J2598; J2704; J3010; J3370; J3372; J3475; J3480; J3490; J7030; J7040; J7050; J7120; P9047; G0480; J1805; J1836; J2359

== ENCOUNTER 2025-04-12 22:48 | Inpatient (IN) | payer OTHER, MEDICAID, SELFPAY ==
[2025-04-12 23:00] VITALS: PULSE 108; RESP 24; O2SAT 96
--- NOTE | 2025-04-12 23:25 | PC.NURSE ---
2304 Pt arrived from [facility] to room 278. Pt has trach on ventilator, placed on vent by RT. Dr Campos notified of patients arrival new orders received.
--- NOTE | 2025-04-12 23:35 | PC.NURSE ---
Patient arrived from [facility] with Heparin Drip running. Stopped IV Heparin and clarified order with Dr Campos. Will restart Heparin Drip per protocol after PTT results are received
[2025-04-13] VITALS (14 sets, daily range): BP systolic 104–127; BP diastolic 74–85; PULSE 60–110; RESP 12–30; TEMP 35.9–36.7; O2SAT 95–99; BMI 76.7; BMI 67.9
[2025-04-13 01:35] LABS: Partial Thromboplastin Time 34.9 Seconds (22.0-36.0)
[2025-04-13] MEDS: Heparin/D5w 25K 250 ML Ivpb 25,000 UNIT/250 ML BAG 17.986 UNIT IV (01:57)
--- NOTE | 2025-04-13 03:07 | ESHP_ITS ---
Documentation for date of: 04/13/25 HPI History of Present Illness Chief complaint: [facility] History of present illness: 64-year-old male with past medical history of DM2, hypertension, and A-fib admitted here for pneumonia, required intubation was unable to be weaned off ventilator. Patient was trached, fed via NG tube for 3 weeks. Was unable to have PEG tube placed, transferred to [facility] for laparoscopic J-tube placement. Procedure completed without incident, patient transferred back to [facility] for further management. While at [facility] patient had intra- abdominal abscess drained with drain left in place. Patient currently denies fever, chills, chest pain, nausea, vomiting. Resumed previous meds as appropriate, including heparin drip for IJ thrombus. Review of Systems Review of Systems Systems Reviewed: All systems reviewed, normal except as documented Exam Vital Signs Temp Pulse Resp BP Pulse Ox O2 Del Method 97.8 F 110 H 23 H 122/85 H 96 Mechanical Ventilation 04/13/25 00:00 04/13/25 00:00 04/13/25 00:00 04/13/25 00:00 04/13/25 00:00 04/13/25 00:00 Narrative Exam PE: Gen: Well-developed and well-nourished. Morbidly obese. Tracheostomy on vent and PEG tube. HEENT: NCAT, PERRLA, EOMI, MMM, anicteric conjunctivae. CVS: normal S1 and S2. RRR. No M/R/G. Resp: CTA B/L. No rhonchi, rales, crackles or wheezing. Diminished lung sounds due to poor body habitus. Abd: soft, non-tender, non-distended. BS+ in all 4 quadrants. MSK: Good ROM in BUE & BLE. No rash. 2+ edema bilateral feet and ankles. Ulcer on bilateral buttocks. Neuro: CN II-XII grossly intact. Strength 5/5 in BUE & BLE. Alert and oriented x3. Results: Labs 04/13/25 05:15 04/13/25 05:15 Quality Measures Quality Measures VTE therapy Advance care planning discussed with:: patient Medications Home Medications and Allergies Home Medications ?Medication ?Instructions ?Recorded ?Confirmed ?Type amlodipine 10 mg tablet 10 mg PO 1XD 02/27/25 History gabapentin 600 mg tablet 600 mg PO 3XD 02/27/2504/13 History glipizide 10 mg tablet 10 mg PO 1XD 02/27/25 History losartan 25 mg tablet 25 mg PO 1XD 02/27/25 History metformin 1,000 mg tablet 1,000 mg PO 2XD 02/27/25 History metoprolol succinate 100 mg 100 mg PO 2XD 02/27/25 History tablet,extended release 24 hr tramadol 50 mg tablet 50 mg PO 3XD 02/27/25 History Allergies Allergy/AdvReac Type Severity Reaction Status Date / Time No Known Allergies Allergy Verified 02/27/25 06:45 Visit Medications Hydrocodone Bitart/Acetaminophen (Hydrocodone/Apap 5/325 Tablet) 1 tab GT Q4HR PRN PRN Reason: PAIN SCALE 4-10(Mod-Sev Stop: 04/17/25 23:26 Amiodarone HCl (Amiodarone Hcl 200 Mg Tablet) 200 mg GT [facility]DAY [facility] Stop: 05/13/25 08:59 Amlodipine Besylate (Amlodipine Besylate 5 Mg Tablet) 10 mg GT QDAY [facility] Stop: 05/13/25 08:59 Bumetanide (Bumetanide Inj 0.25 Mg/Ml Vial 4 Ml) 2 mg IVP QDAY [facility] Stop: 05/13/25 08:59 Dextrose (Dextrose 50%-Water Inj 50 Ml Syringe) 25 ml IV Q15MIN PRN PRN Reason: BG 50-70 responsive npo pt Stop: 05/12/25 23:31 Dextrose (Dextrose 50%-Water Inj 50 Ml Syringe) 50 ml IV Q15MIN PRN PRN Reason: BG <50 OR BG <70 & pt unresponsive Stop: 05/12/25 23:31 Glucagon (Glucagon Inj 1 Mg Vial) 1 mg IM Q15MIN PRN PRN Reason: BG <70, and no IV access Heparin Sodium/Dextrose (Heparin In D5w Ivpb) 25,000 unit in 250 mls @ 17.986 mls/hr IV .[id number] [facility]; Protocol Stop: 04/26/25 23:44 Last Admin: 04/13/25 01:57 Dose: 9.13 units/kg/hr, 17.986 mls/hr Insulin Glargine (Insulin Glargine (Lantus) 5 Unit/0.05 Ml (Per 5 Units)) 38 unit SC QDAY [facility] Stop: 05/13/25 08:59 Insulin Human Lispro (Insulin Lispro (Admelog) 1 Unit/0.01 Ml Unit) 0 unit SC Q6HR KOURTNEY; Protocol Stop: 05/13/25 00:00 Last Admin: 04/13/25 01:15 Dose: Not Given Losartan Potassium (Losartan Potassium 25 Mg Tablet) 25 mg GT QDAY KOURT[facility] Stop: 05/13/25 08:59 Metoprolol Succinate (Metoprolol Succinate Xl 25 Mg Tabcr) 100 mg GT BID [facility] Stop: 05/13/25 08:59 Ondansetron HCl (Ondansetron Inj 2 Mg/Ml Inj 2 Ml) 4 mg IVP Q6H PRN; Protocol PRN Reason: NAUSEA OR VOMITING Stop: 05/12/25 23:26 Pantoprazole Sodium (Pantoprazole 40 Mg Tablet) 40 mg PO Q12HR KOURTNEY Stop: 05/13/25 08:59 Assessment & Plan Plan 64-year-old male with past medical history of DM2, hypertension, A-fib, and Jehova's witness was admitted to the ICU on 02/27/2025 for shock and acute hypoxic respiratory failure. Initiating transfer for higher level of care at this time for Jejunostomy. #Acute on Chronic Hypoxic Hypercapnic Respiratory Failure #Aspiration Pneumonia #Obesity hypoventilation syndrome and obstructive sleep apnea #Dysphagia #Tracheostomy Patient was intubated and ventilated due to hypoxic respiratory failure, was unable to be extubated. Tracheostomy was placed. PEG tube was able to be placed, patient transferred to [facility] for laparoscopic J-tube placement, is now being transferred back after procedure successfully completed. - Dietary consulted, recommendations appreciated - Ventilator, respiratory therapy consulted #Right internal jugular venous thrombosis #Right arm swelling Continuing to hold free water flushes as patient is still edematous. Heparin drip resumed - Heparin Drip per protocol (04/01-) - Continuing to hold Xarleto #Right diastolic CHF Patient history as stated. Has been unable to maintain strict I's and O's due to difficulty tracking urine. Patient unable to tolerate catheter. Appears fluid overloaded on exam. - Continue strict daily body weight - Continue Bumex 2 g IV once daily - Daily weights - Strict I&O #Hx of A-fib [id number] score of 3 points indicating 3.2% risk of stroke per year HAS-BLED: 0 Currently rhythm controlled. - Heparin drip - Amio 200 mg QDAY - Keep potassium and magnesium above 4 and 2 respectively - Telemetry #Decubitus ulcer #Chronic back pain Not requiring surgical intervention at this time Will slowly give pain medicines for this patient, however do not want to over sedate patient - Monitor for signs of infection - Wound care - [place] 5 as needed #Morbid obesity #DM2 A1C 7.6 on 03/05/2025 Patient has a BMI of 79.5 - ISS scale 2 - Hypoglycemia protocol ordered - 38 units of Lantus DVT prophylaxis: Heparin drip GI prophylaxis: Protonix Diet: Pending dietary consult, tube feeds CODE STATUS: Full Plan of care discussed with attending Dr. Haas. Anil Rodriguez MD PGY?1 Attending Provider Attestation/Addendum I have examined the patient, reviewed labs and imaging findings, discussed the case with the resident(s), and reviewed entered orders. I agree with the plan of care as outlined in this note, with these additional summaries/recommendations: After examination of the patient and review of the clinical data, I feel that this patient needs admission to the hospital for further treatment and evaluation. Patient is a 64-year-old male with a medical history of morbid obesity, chronic respiratory failure, obesity hypoventilation syndrome/BASIA, primary hypertension, chronic atrial fibrillation, CHF, atrial fibrillation, diabetes mellitus type 2, and decubitus ulcer who was transferred back to [facility] from [facility] for laparoscopic J-tube placement. Continue mechanical ventilation and consult dietary to resume tube feeds/free water flushes. Continue anticoagulation for right IJ thrombosis and atrial fibrillation. Continue Bumex for CHF. Consult wound care for decubitus ulcer and continue pain management. Start insulin sliding scale for diabetes mellitus type 2. Repeat hematology chemistry panel in AM. Please see residents note for additional details and management. Dr. Samina MD
[2025-04-13 05:35] LABS: Basophils # (Auto) 0.1 Thou/mm3 (0.0-0.2); Basophils % (Auto) 0 % (0-2.5); Eosinophils # (Auto) 0.3 Thou/mm3 (0.0-0.5); Eosinophils % (Auto) 2 % (0-10); Hematocrit 32.1 % (41.0-53.0); Hemoglobin 10.2 g/dL (13.5-16.0); Immature Granulocytes Auto 0.14 Thou/mm3 (0.00-0.00); Lymphocytes # (Auto) 1.7 Thou/mm3 (1.0-4.8); Lymphocytes % (Auto) 13 % (10-50); Mean Corpuscular HGB Conc 31.8 g/dl (31.0-37.0); Mean Corpuscular Hemoglobin 28.1 pg (25.0-35.0); Mean Corpuscular Volume 88 fL (80-100); Monocytes # (Auto) 1.2 Thou/mm3 (0.0-0.8); Monocytes % (Auto) 9 % (0-12); Neutrophils # (Auto) 9.5 Thou/mm3 (1.8-7.7); Neutrophils % (Auto) 74 % (37-80); Nucleated Red Blood Cell # 0.00 Thou/mm3 (0.00-0.00); Nucleated Red Blood Cell % 0 /100 WBC (0); Platelet Count 194 Thou/mm3 (140-440); RDW Standard Deviation 54.4 fL (35.1-43.9); Red Blood Count 3.63 Miln/mm3 (4.50-5.90); White Blood Count 12.9 Thou/mm3 (3.8-10.6)
[2025-04-13 06:18] LABS: Alanine Aminotransferase 14 U/L (10-49); Albumin, Serum 3.0 gm/dL (3.4-4.8); Albumin/Globulin Ratio 1.3 (1.2-2.2); Alkaline Phosphatase 159 U/L (46-116); Anion Gap 9 (7-16); Aspartate Amino Transferase 32 U/L (0-34); BUN/Creatinine Ratio 21 Ratio (12-20); Bilirubin,Total 0.5 mg/dL (0.3-1.2); Blood Urea Nitrogen 34 mg/dL (9-23); Calcium 8.3 mg/dL (8.3-10.6); Calcium (Corrected) 9.1 mg/dL (8.5-10.1); Carbon Dioxide 34.0 mMol/L (20.0-31.0); Chloride 97 mMol/L (98-107); Creatinine (Component) 1.6 mg/dL (0.6-1.3); Estimated Creatinine Clearance 72.6 mL/min (>60); Globulin 2.4 gm/dL (2.3-3.5); Glucose 153 mg/dL (74-106); Magnesium 2.1 mg/dL (1.6-2.6); Osmolality,Calculated 290 (275-295); Phosphorous 3.7 mg/dL (2.4-5.1); Potassium 3.6 mMol/L (3.4-5.1); Sodium 140 mMol/L (136-145); Total Protein 5.4 gm/dL (5.7-8.2); eGFR 48 See Note
[2025-04-13] MEDS: INSULIN GLARGINE (Lantus) 5 UNIT/0.05 ML (PER 5 UNITS) 38 UNIT SC (08:50)
[2025-04-13] MEDS: METOPROLOL SUCCINATE XL 25 MG TABCR 100 MG GT ×2 (08:52→20:23)
[2025-04-13] MEDS: AMIODARONE HCL 200 MG TABLET GT (08:53)
[2025-04-13] MEDS: PANTOPRAZOLE 40 MG TABLET PO ×2 (08:53→20:23)
[2025-04-13 09:40] LABS: Partial Thromboplastin Time 46.9 Seconds (22.0-36.0)
--- NOTE | 2025-04-13 09:52 | PD.RESPRO ---
Documentation for date of: 04/13/25 Subjective Subjective Interval history: Patient examined at bedside today. No acute overnight events. Patient is requesting to get his tracheostomy collar adjusted. He is currently on ventilation. He says that his procedure went well at [facility]. He has no other complaints at this time. Exam Vital Signs Temp Pulse Resp BP Pulse Ox O2 Del Method FiO2 97.2 F 86 15 106/75 96 Mechanical Ventilation 96 04/13/25 08:00 04/13/25 08:53 04/13/25 08:00 04/13/25 08:53 04/13/25 08:00 04/13/25 08:00 04/13/25 08:00 Narrative Exam General: AAOx3, morbidly obese, lying in bed HEENT: Tracheostomy, appears dry, PERRLA Cardiovascular: S1, S2, radial pulses +2 bilat, regular rate, possible ejection systolic murmur Pulmonary: Minimal crackles no wheezing GI: Jejunostomy tube in place and present, no active drainage Extremities: Trace edema in lower extremities bilaterally, dorsalis pedis pulses +2 bilaterally Neuro: AAOx3, limited exam as patient is bedbound at this time Objective Labs 04/13/25 05:15 04/13/25 12:28 Labs: Laboratory Results - last 24 hr 04/13/25 04/13/25 01:07 05:15 WBC 12.9 H RBC 3.63 L Hgb 10.2 L Hct 32.1 L MCV 88 MCH 28.1 MCHC 31.8 RDW Std Deviation 54.4 H Plt Count 194 D Neut % (Auto) 74 Lymph % (Auto) 13 [place] % (Auto) 9 Eos % (Auto) 2 Baso % (Auto) 0 Neut # (Auto) 9.5 H Lymph # (Auto) 1.7 [place] # (Auto) 1.2 H Eos # (Auto) 0.3 Baso # (Auto) 0.1 Immature Gran # (Auto) 0.14 H Absolute Nucleated RBC 0.00 Immature Gran % 1 H Nucleated RBC % 0 APTT 34.9 D Sodium 140 Potassium 3.6 Chloride 97 L Carbon Dioxide 34.0 H Anion Gap 9 BUN 34 H Creatinine 1.6 H Estim Creat Clear Calc 72.6 eGFR 48 L BUN/Creatinine Ratio 21 H Glucose 153 H Calculated Osmolality 290 Calcium 8.3 Corrected Calcium 9.1 Phosphorus 3.7 Magnesium 2.1 Total Bilirubin 0.5 AST 32 ALT 14 Alkaline Phosphatase 159 H Total Protein 5.4 L Albumin 3.0 L Globulin 2.4 Albumin/Globulin Ratio 1.3 Quality Measures Quality Measures VTE therapy Advance care planning discussed with:: patient Assessment & Plan Assessment Current Active Medications: Generic Name Dose Route Start Last Admin Trade Name Freq PRN Reason Stop Dose Admin Hydrocodone Bitart/Acetaminophen 1 tab 04/12/25 23:27 Hydrocodone/Apap 5/325 Tablet GT 04/17/25 23:26 Q4HR PRN PAIN SCALE 4-10(Mod-Sev Amiodarone HCl 200 mg 04/13/25 09:00 04/13/25 08:53 Amiodarone Hcl 200 Mg Tablet GT 05/13/25 08:59 200 mg QDAY KOURTNEY Administration Amlodipine Besylate 10 mg 04/13/25 09:00 04/13/25 08:53 Amlodipine Besylate 5 Mg Tablet GT 05/13/25 08:59 10 mg QDAY KOURTNEY Administration Dextrose 25 ml 04/12/25 23:32 Dextrose 50%-Water Inj 50 Ml Syringe IV 05/12/25 23:31 Q15MIN PRN BG 50-70 responsive npo pt Dextrose 50 ml 04/12/25 23:32 Dextrose 50%-Water Inj 50 Ml Syringe IV 05/12/25 23:31 Q15MIN PRN BG <50 OR BG <70 & pt unresponsive Glucagon 1 mg 04/12/25 23:32 Glucagon Inj 1 Mg Vial IM Q15MIN PRN BG <70, and no IV access Heparin Sodium/Dextrose 25,000 unit in 250 mls @ 17.986 mls/hr 04/12/25 23:45 04/13/25 01:57 Heparin In D5w Ivpb IV 04/26/25 23:44 9.13 units/kg/hr .[id number] KOURTNEY 17.986 mls/hr Administration Protocol 9.13 UNITS/KG/HR Insulin Glargine 38 unit 04/13/25 09:00 04/13/25 08:50 Insulin Glargine (Lantus) 5 Unit/0.05 Ml (Per 5 Units) SC 05/13/25 08:59 38 unit QDAY KOURTNEY Administration Insulin Human Lispro 0 unit 04/13/25 00:00 04/13/25 05:20 Insulin Lispro (Admelog) 1 Unit/0.01 Ml Unit SC 05/13/25 00:00 Not Given Q6HR KOURTNEY Protocol Metoprolol Succinate 100 mg 04/13/25 09:00 04/13/25 08:52 Metoprolol Succinate Xl 25 Mg Tabcr GT 05/13/25 08:59 100 mg BID KOURTNEY Administration Ondansetron HCl 4 mg 04/12/25 23:27 Ondansetron Inj 2 Mg/Ml Inj 2 Ml IVP 05/12/25 23:26 Q6H PRN NAUSEA OR VOMITING Protocol Pantoprazole Sodium 40 mg 04/13/25 09:00 04/13/25 08:53 Pantoprazole 40 Mg Tablet PO 05/13/25 08:59 40 mg Q12HR KOURTNEY Administration Plan Assessment 64-year-old male with past medical history of DM2, hypertension, A-fib, and Jehova's witness was admitted to the ICU on 02/27/2025 for shock and acute hypoxic respiratory failure. He is s/p laparoscopic J-tube placement from [facility]. #Acute on Chronic Hypoxic Hypercapnic Respiratory Failure #Aspiration Pneumonia #Obesity hypoventilation syndrome and obstructive sleep apnea #Dysphagia #Tracheostomy Patient was intubated and ventilated due to hypoxic respiratory failure, was unable to be extubated. Tracheostomy was placed. PEG tube was able to be placed, patient transferred to [facility] for laparoscopic J-tube placement, is now being transferred back after procedure successfully completed Plan: - Dietary consulted, recommendations appreciated - Ventilator, respiratory therapy consulted - Blow-by during the day, ventilation at night ? Continue with cefepime and Flagyl IV at this time #Jejunostomy tube #Abdominal abscess Patient report said that there was an intra-abdominal abscess that have could have been from a perforated ulcer in the past No current drain at this time Patient is status post laparoscopic J-tube placement and is currently on feeds Patient will continue to have this tube and will likely go to a long-term care facility with this until patient can swallow safely Plan: ? Continue with cefepime IV and Flagyl IV at this time ? Resume tube feeds per RD recommendations ? Consider GI consult #Acute kidney injury DDx: Prerenal versus ATN versus obstructive Creatinine 1.6 today Patient looks clinically hypovolemic at this time Patient's sodium is 143, it was 140 this morning. This happened after 500 cc NS, will increase water flushes rather than bolus b/c of concern for hypernatremia Plan: ? Continue with water flushes ? Urine lytes and creatinine ? Avoid nephrotoxic agents ? Renally dose medicines #Right diastolic CHF Patient appears clinically dry at this point, will hold on diuresis at this time Plan: - Continue strict daily body weight - Holding diuresis - Daily weights - Strict I&O #Hx of A-fib [id number] score of 3 points indicating 3.2% risk of stroke per year HAS-BLED: 0 Currently rhythm controlled Plan: - Heparin drip - Amio 200 mg QDAY - Keep potassium and magnesium above 4 and 2 respectively - Telemetry #Right internal jugular venous thrombosis #Right arm swelling Continuing free water flushes, patient has gone multiple days of heparin drip since 04/01 Plan: ? Continue heparin drip protocol (04/01- ? Will need to transition to Xarelto at some point #Decubitus ulcer #Chronic back pain Not requiring surgical intervention at this time Plan: - Monitor for signs of infection - Wound care - [place] 5 as needed - Skin barrier creams PRN #Morbid obesity #DM2 A1C 7.6 on 03/05/2025 Patient has a BMI of 79.5 Plan: - ISS scale 2 - Hypoglycemia protocol ordered - 38 units of Lantus #Health Maintenance Disposition: Telemetry DVT prophylaxis: Heparin drip GI prophylaxis: Protonix Diet: 2Cal Tube Feeds with 40 cc/hour water flush CODE STATUS:Full Patient seen and care discussed with my attending physician, Dr. Izzy Shields, PGY-1 Attending Provider Attestation/Addendum I reviewed labs, imaging, EKG, home medications and prior available records. Face to face evaluation was performed by me. I have personally examined the patient and discussed assessment and plan with the IM team. I reviewed the resident note and agree with the plan with exceptions as below. Acute on chronic hypoxic respiratory failure Status post tracheostomy Aspiration pneumonia KENIA Dysphagia Morbid obesity Atrial fibrillation with controlled ventricular rhythm DVT of upper extremity Insulin-dependent diabetes mellitus Essential hypertension Continue oxygen via tracheostomy Patient was transferred and he is status post PEG tube placement. Started tube feeds at a lower rate. Advance as tolerated. Dietitian is following Status post drainage of intra-abdominal abscess. Continue cefepime/metronidazole Continue heparin drip for the DVT Continue insulin therapy and antihypertensive treatment Held diuretics. Gave 500 cc of fluids. Monitor kidney function. Avoid nephrotoxins Ordered PT evaluation Outpatient weight management
--- NOTE | 2025-04-13 09:53 | PC.DIETICIAN ---
Nutrition recommendations: 1. TwoCal HN at 25 ml/hr via J-tube by pump. Advance 10 ml every 8 hrs to goal rate of 42 ml/hr x 24 hrs. If no IV fluids, water flushes of 30 ml/hr (or per MD). 2. ProStat 30ml TID via J-tube. 3. Vitamin C 500 mg BID, zinc sulfate 220 mg once daily for 14 days, multivit/minerals.
[2025-04-13] MEDS: HEPARIN SOD INJ 5000 UNIT/ML VIAL 4000 UNIT IV (10:35)
--- NOTE | 2025-04-13 11:03 | PC.NURSE ---
Patient ambulated without O2, patient SPO2 remained above 95%. Patient voided x2 post catheter removal.
[2025-04-13] MEDS: SODIUM CHLORIDE 0.9% 500 ML 500 ML 999 ML IV (12:58)
[2025-04-13] MEDS: CEFEPIME INJ 2 GM in SODIUM CHLORIDE 0.9% (Popper) 50 ML IV ×2 (13:38→21:18)
[2025-04-13] MEDS: metroNIDAZOLE/NS 500 MG IVPB 500 MG/100 ML BAG 200 MG IV ×2 (13:38→21:18)
[2025-04-13 13:39] LABS: Albumin, Serum 2.9 gm/dL (3.4-4.8); Anion Gap 9 (7-16); BUN/Creatinine Ratio 19 Ratio (12-20); Blood Urea Nitrogen 31 mg/dL (9-23); Calcium 8.3 mg/dL (8.3-10.6); Calcium (Corrected) 9.2 mg/dL (8.5-10.1); Carbon Dioxide 34.0 mMol/L (20.0-31.0); Chloride 100 mMol/L (98-107); Creatinine (Component) 1.6 mg/dL (0.6-1.3); Estimated Creatinine Clearance 76.1 mL/min (>60); Glucose 141 mg/dL (74-106); Osmolality,Calculated 293 (275-295); Phosphorous 3.7 mg/dL (2.4-5.1); Potassium 3.9 mMol/L (3.4-5.1); Sodium 143 mMol/L (136-145); eGFR 48 See Note
[2025-04-13] MEDS: Heparin/D5w 25K 250 ML Ivpb 25,000 UNIT/250 ML BAG 21.926 UNIT IV (15:26)
--- NOTE | 2025-04-13 18:38 | PC.NURSE ---
PTT drawn out of arm running heparin gtt without it paused, ptt redrawn and pending at 1800.
[2025-04-13 18:57] LABS: Partial Thromboplastin Time 51.9 Seconds (22.0-36.0)
[2025-04-13] MEDS: HYDROcodone/APAP 5/325 TABLET 1 TAB GT (20:23)
[2025-04-14] VITALS (12 sets, daily range): BP systolic 124–133; BP diastolic 72–99; PULSE 82–100; RESP 16–24; TEMP 36.1–36.7; O2SAT 96–99; BMI 67.9
[2025-04-14 01:41] LABS: Partial Thromboplastin Time 70.0 Seconds (22.0-36.0)
[2025-04-14] MEDS: Heparin/D5w 25K 250 ML Ivpb 25,000 UNIT/250 ML BAG 21.926 UNIT IV ×2 (05:16→18:37)
[2025-04-14] MEDS: CEFEPIME INJ 2 GM in SODIUM CHLORIDE 0.9% (Popper) 50 ML IV ×3 (05:18→21:12)
[2025-04-14] MEDS: metroNIDAZOLE/NS 500 MG IVPB 500 MG/100 ML BAG 100 MG IV ×3 (05:19→21:12)
[2025-04-14] MEDS: METOPROLOL SUCCINATE XL 25 MG TABCR 100 MG GT ×2 (08:37→20:25)
[2025-04-14] MEDS: AMIODARONE HCL 200 MG TABLET GT (08:37)
[2025-04-14] MEDS: PANTOPRAZOLE 40 MG TABLET PO (08:38)
[2025-04-14] MEDS: INSULIN GLARGINE (Lantus) 5 UNIT/0.05 ML (PER 5 UNITS) 38 UNIT SC (08:46)
[2025-04-14 08:55] LABS: Basophils # (Auto) 0.1 Thou/mm3 (0.0-0.2); Basophils % (Auto) 0 % (0-2.5); Eosinophils # (Auto) 0.8 Thou/mm3 (0.0-0.5); Eosinophils % (Auto) 6 % (0-10); Hematocrit 31.8 % (41.0-53.0); Hemoglobin 10.0 g/dL (13.5-16.0); Immature Granulocytes Auto 0.19 Thou/mm3 (0.00-0.00); Lymphocytes # (Auto) 2.2 Thou/mm3 (1.0-4.8); Lymphocytes % (Auto) 17 % (10-50); Mean Corpuscular HGB Conc 31.4 g/dl (31.0-37.0); Mean Corpuscular Hemoglobin 27.8 pg (25.0-35.0); Mean Corpuscular Volume 88 fL (80-100); Monocytes # (Auto) 1.3 Thou/mm3 (0.0-0.8); Monocytes % (Auto) 10 % (0-12); Neutrophils # (Auto) 8.3 Thou/mm3 (1.8-7.7); Neutrophils % (Auto) 65 % (37-80); Nucleated Red Blood Cell # 0.00 Thou/mm3 (0.00-0.00); Nucleated Red Blood Cell % 0 /100 WBC (0); Platelet Count 378 Thou/mm3 (140-440); RDW Standard Deviation 54.6 fL (35.1-43.9); Red Blood Count 3.60 Miln/mm3 (4.50-5.90); White Blood Count 12.8 Thou/mm3 (3.8-10.6)
[2025-04-14 09:06] LABS: Alanine Aminotransferase 12 U/L (10-49); Albumin, Serum 3.1 gm/dL (3.4-4.8); Anion Gap 10 (7-16); Aspartate Amino Transferase 33 U/L (0-34); BUN/Creatinine Ratio 21 Ratio (12-20); Bilirubin,Total 0.5 mg/dL (0.3-1.2); Blood Urea Nitrogen 33 mg/dL (9-23); Calcium 8.2 mg/dL (8.3-10.6); Carbon Dioxide 36.1 mMol/L (20.0-31.0); Chloride 99 mMol/L (98-107); Creatinine (Component) 1.6 mg/dL (0.6-1.3); Estimated Creatinine Clearance 76.1 mL/min (>60); Glucose 115 mg/dL (74-106); Magnesium 2.2 mg/dL (1.6-2.6); Osmolality,Calculated 296 (275-295); Phosphorous 3.9 mg/dL (2.4-5.1); Potassium 3.5 mMol/L (3.4-5.1); Sodium 145 mMol/L (136-145); Total Protein 5.6 gm/dL (5.7-8.2); eGFR 48 See Note
[2025-04-14 09:07] LABS: Albumin/Globulin Ratio 1.2 (1.2-2.2); Alkaline Phosphatase 176 U/L (46-116); Calcium (Corrected) 8.9 mg/dL (8.5-10.1); Globulin 2.5 gm/dL (2.3-3.5)
[2025-04-14 09:24] LABS: Partial Thromboplastin Time 75.4 Seconds (22.0-36.0)
--- NOTE | 2025-04-14 10:46 | ESPR_ITS ---
<Statement entered by Evi Betts MD - 04/14/25 16:21> Patient was seen and examined by me personally. I have directly supervised and reviewed documentation by the team resident and agree with its findings with any exceptions or additional findings as below. Plan of care was discussed with the attending, Dr. Mccurdy. Continuation of care to new Team B starting 04/14/2025. Mr. Ortega is a 64-year-old male with past medical history of morbid obesity, type 2 diabetes, hypertension, afib, chronic respiratory failure, BASIA/OHS, and R-sided diastolic HF who was admitted to [facility] on 02/27/2025 for acute on chronic respiratory failure, eventually requiring tracheostomy placement due to failure to extubate x3. Patient was transferred out to [facility] on 04/09/2025 for bariatric surgery service for insertion of a laparoscopic J-tube placement. Patient apparently also had been found to have an intra-abdominal abscess in place which was drained. He was transferred back to [place] on 04/13/2025. Labs remain stable, vitals stable and patient is on mechanical ventilation, FiO2 50%. Patient does have an unstagable decubitus ulcer, will have fac engineer evaluate on Tuesday. Will keep IV cefepime and metronidazole for now with plan to transition to PO antibiotics. Patient will continue heparin drip for right internal jugular DVT. Currently the patient is awaiting coordination of discharge to LTAC. director of casework services updated. Evi Betts, PGY-2 Documentation for date of: 04/14/25 Subjective Subjective Interval history: Patient seen and examined at bedside. Will continue IV antibiotics, considering patient will have underlying abscess. Patient does have underlying KENIA, sodium is uptrending, will increase free water flushes to 60 cc/h. Pending wound care assessment, does have unstageable sacral ulcer, instructed nurse to follow wound instructions from [facility] wound care nurse. Will monitor closely. Exam Vital Signs Temp Pulse Resp BP Pulse Ox O2 Del Method O2 Flow Rate 97.9 F 82 18 133/76 H 99 Mechanical Ventilation 10 04/14/25 08:00 04/14/25 10:07 04/14/25 10:07 04/14/25 08:37 04/14/25 10:07 04/14/25 08:00 04/14/25 10:07 FiO2 50 04/14/25 10:07 Narrative Exam General: AAOx3, morbidly obese, lying in bed HEENT: Tracheostomy, appears dry, PERRLA Cardiovascular: S1, S2, radial pulses +2 bilat, regular rate, possible ejection systolic murmur Pulmonary: Minimal crackles no wheezing GI: Jejunostomy tube in place and present, no active drainage Extremities: Trace edema in lower extremities bilaterally, dorsalis pedis pulses +2 bilaterally Neuro: AAOx3, limited exam as patient is bedbound at this time Objective Labs 04/16/25 05:22 04/16/25 05:22 Labs: Laboratory Results - last 24 hr 04/13/25 04/13/25 04/14/25 12:28 18:00 00:50 WBC RBC Hgb Hct MCV MCH MCHC RDW Std Deviation Plt Count Neut % (Auto) Lymph % (Auto) Winn % (Auto) Eos % (Auto) Baso % (Auto) Neut # (Auto) Lymph # (Auto) Winn # (Auto) Eos # (Auto) Baso # (Auto) Immature Gran # (Auto) Absolute Nucleated RBC Immature Gran % Nucleated RBC % APTT 51.9 H 70.0 H D Sodium 143 Potassium 3.9 Chloride 100 Carbon Dioxide 34.0 H Anion Gap 9 BUN 31 H Creatinine 1.6 H Estim Creat Clear Calc 76.1 eGFR 48 L BUN/Creatinine Ratio 19 Glucose 141 H Calculated Osmolality 293 Calcium 8.3 Corrected Calcium 9.2 Phosphorus 3.7 Magnesium Total Bilirubin AST ALT Alkaline Phosphatase Total Protein Albumin 2.9 L Globulin Albumin/Globulin Ratio 04/14/25 08:23 WBC 12.8 H RBC 3.60 L Hgb 10.0 L Hct 31.8 L MCV 88 MCH 27.8 MCHC 31.4 RDW Std Deviation 54.6 H Plt Count 378 D Neut % (Auto) 65 Lymph % (Auto) 17 Winn % (Auto) 10 Eos % (Auto) 6 Baso % (Auto) 0 Neut # (Auto) 8.3 H Lymph # (Auto) 2.2 Winn # (Auto) 1.3 H Eos # (Auto) 0.8 H Baso # (Auto) 0.1 Immature Gran # (Auto) 0.19 H Absolute Nucleated RBC 0.00 Immature Gran % 2 H Nucleated RBC % 0 APTT 75.4 H Sodium 145 Potassium 3.5 Chloride 99 Carbon Dioxide 36.1 H Anion Gap 10 BUN 33 H Creatinine 1.6 H Estim Creat Clear Calc 76.1 eGFR 48 L BUN/Creatinine Ratio 21 H Glucose 115 H Calculated Osmolality 296 H Calcium 8.2 L Corrected Calcium 8.9 Phosphorus 3.9 Magnesium 2.2 Total Bilirubin 0.5 AST 33 ALT 12 Alkaline Phosphatase 176 H Total Protein 5.6 L Albumin 3.1 L Globulin 2.5 Albumin/Globulin Ratio 1.2 Quality Measures Quality Measures VTE therapy Advance care planning discussed with:: patient Assessment & Plan Assessment Current Active Medications: Generic Name Dose Route Start Last Admin Trade Name Freq PRN Reason Stop Dose Admin Hydrocodone Bitart/Acetaminophen 1 tab 04/12/25 23:27 04/13/25 20:23 Hydrocodone/Apap 5/325 Tablet GT 04/17/25 23:26 1 tab Q4HR PRN Administration PAIN SCALE 4-10(Mod-Sev Amiodarone HCl 200 mg 04/13/25 09:00 04/14/25 08:37 Amiodarone Hcl 200 Mg Tablet GT 05/13/25 08:59 200 mg QDAY KOURTNEY Administration Amlodipine Besylate 10 mg 04/13/25 09:00 04/14/25 08:37 Amlodipine Besylate 5 Mg Tablet GT 05/13/25 08:59 10 mg QDAY KOURTNEY Administration Dextrose 25 ml 04/12/25 23:32 Dextrose 50%-Water Inj 50 Ml Syringe IV 05/12/25 23:31 Q15MIN PRN BG 50-70 responsive npo pt Dextrose 50 ml 04/12/25 23:32 Dextrose 50%-Water Inj 50 Ml Syringe IV 05/12/25 23:31 Q15MIN PRN BG <50 OR BG <70 & pt unresponsive Glucagon 1 mg 04/12/25 23:32 Glucagon Inj 1 Mg Vial IM Q15MIN PRN BG <70, and no IV access Heparin Sodium/Dextrose 25,000 unit in 250 mls @ 17.986 mls/hr 04/12/25 23:45 04/14/25 09:26 Heparin In D5w Ivpb IV 04/26/25 23:44 11.13 units/kg/hr .[id number] KOURTNEY 21.926 mls/hr Titration Protocol 9.13 UNITS/KG/HR Cefepime HCl 2 gm/ Sodium 50 mls @ 100 mls/hr 04/13/25 13:08 04/14/25 05:18 Chloride IV 04/20/25 13:07 100 mls/hr Q8HR KOURTNEY Administration Metronidazole 500 mg in 100 mls @ 200 mls/hr 04/13/25 13:09 04/14/25 05:19 Flagyl 500 Mg Iv IV 04/20/25 13:08 100 mls/hr Q8HR KOURTNEY Administration Insulin Glargine 38 unit 04/13/25 09:00 04/14/25 08:46 Insulin Glargine (Lantus) 5 Unit/0.05 Ml (Per 5 Units) SC 05/13/25 08:59 38 unit QDAY KOURTNEY Administration Insulin Human Lispro 0 unit 04/13/25 00:00 04/14/25 05:19 Insulin Lispro (Admelog) 1 Unit/0.01 Ml Unit SC 05/13/25 00:00 Not Given Q6HR KOURNTEY Protocol Metoprolol Succinate 100 mg 04/13/25 09:00 04/14/25 08:37 Metoprolol Succinate Xl 25 Mg Tabcr GT 05/13/25 08:59 100 mg BID KOURTNEY Administration Ondansetron HCl 4 mg 04/12/25 23:27 Ondansetron Inj 2 Mg/Ml Inj 2 Ml IVP 05/12/25 23:26 Q6H PRN NAUSEA OR VOMITING Protocol Pantoprazole Sodium 40 mg 04/13/25 09:00 04/14/25 08:38 Pantoprazole 40 Mg Tablet PO 05/13/25 08:59 40 mg Q12HR KOURTNEY Administration Plan Assessment 64-year-old male with past medical history of DM2, hypertension, A-fib, and Jehova's witness was admitted to the ICU on 02/27/2025 for shock and acute hypoxic respiratory failure. He is s/p laparoscopic J-tube placement from [facility]. #Jejunostomy tube #Abdominal abscess Patient report said that there was an intra-abdominal abscess that have could have been from a perforated ulcer in the past See also note reviewed, mentions that patient likely had a marginal ulcer, but also was not seen on EGD without, currently patient has no abdominal tenderness and is totally asymptomatic. No current drain at this time Patient is status post laparoscopic J-tube placement and is currently on feeds Patient will continue to have this tube and will likely go to a long-term care facility with this until patient can swallow safely Plan: ? Continue with cefepime IV and Flagyl IV at this time ? Resumed tube feeds per RD recommendations ? Monitor vitals closely #Acute kidney injury DDx: Prerenal versus ATN versus obstructive Creatinine 1.6 today Patient looks clinically hypovolemic at this time Patient's sodium is 143, it was 140 this morning. This happened after 500 cc NS, will increase water flushes rather than bolus b/c of concern for hypernatremia Plan: ? Continue with water flushes, 60 cc/h ? Avoid nephrotoxic agents ? Renally dose medicines #Right diastolic CHF Patient appears clinically dry at this point, will hold on diuresis at this time Plan: - Continue strict daily body weight - Holding diuresis - Daily weights - Strict I&O #Acute on Chronic Hypoxic Hypercapnic Respiratory Failure #Aspiration Pneumonia #Obesity hypoventilation syndrome and obstructive sleep apnea #Dysphagia #Tracheostomy Patient was intubated and ventilated due to hypoxic respiratory failure, was unable to be extubated. Tracheostomy was placed. PEG tube was able to be placed, patient transferred to [facility] for laparoscopic J-tube placement, is now being transferred back after procedure successfully completed Plan: - Dietary consulted, recommendations appreciated - Ventilator, respiratory therapy consulted - Blow-by during the day, ventilation at night ? Continue with cefepime and Flagyl IV at this time #Hx of A-fib [id number] score of 3 points indicating 3.2% risk of stroke per year HAS-BLED: 0 Currently rhythm controlled Plan: - Heparin drip - Amio 200 mg QDAY - Keep potassium and magnesium above 4 and 2 respectively - Telemetry #Right internal jugular venous thrombosis #Right arm swelling Continuing free water flushes, patient has gone multiple days of heparin drip since 04/01 Plan: ? Continue heparin drip protocol (04/01- ? Will need to transition to Xarelto at some point #Decubitus ulcer #Chronic back pain Not requiring surgical intervention at this time Unstageable sacral ulcer Plan: - Monitor for signs of infection - Wound care - [place] 5 as needed - Skin barrier creams PRN #Morbid obesity #DM2 A1C 7.6 on 03/05/2025 Patient has a BMI of 79.5 Plan: - ISS scale 2 - Hypoglycemia protocol ordered - 38 units of Lantus #Health Maintenance Disposition: Telemetry DVT prophylaxis: Heparin drip GI prophylaxis: Protonix Diet: 2Cal Tube Feeds with 60 cc/hour water flush CODE STATUS:Full code Case discussed with Attending Dr. Mccurdy and Dr. Betts PGY2. Elizabeth Lamas PGY1 Disclaimer: This note was dictated by speech recognition. Minor errors in fire lieutenant may be present due to voice recognition software. Attending Provider Attestation/Addendum Face to face evaluation was performed by me. I have personally seen and examined the patient. I discussed the assessment and plan with the entire medicine team. I reviewed available medical records, imaging studies, laboratory results. I agree with the above subjective data, objective findings, assessment and plan except as corrected by me or noted below Chronic hypoxic respite failure status post tracheostomy with trach collar History of atrial fibrillation Essential hypertension Dysphagia Encephalopathy acute on chronic likely metabolic Type 2 diabetes requiring insulin therapy Essential hypertension Right IJ thrombosis/DVT continue with anticoagulation -Continue anticoagulation -Continue respiratory therapy, ventilator at bedside, trach collar care Continue medications as ordered -Therapy and discharge planning More than > 30 minutes spent on the encounter
--- NOTE | 2025-04-14 15:27 | PC.SS ---
Per rounding notes, pt will need LTAC. The residents will f/u with SS tomorrow and pts family regarding LTAC .
[2025-04-14] MEDS: LANSOPRAZOLE 30 MG TAB.RAP.DR GT (20:25)
[2025-04-14] MEDS: HYDROcodone/APAP 5/325 TABLET 1 TAB GT (20:25)
[2025-04-15] VITALS (14 sets, daily range): BP systolic 106–154; BP diastolic 71–95; PULSE 81–97; RESP 14–204; TEMP 36.1–36.6; O2SAT 82–99; BMI 68.7
[2025-04-15] MEDS: CEFEPIME INJ 2 GM in SODIUM CHLORIDE 0.9% (Popper) 50 ML IV ×3 (05:05→21:07)
[2025-04-15] MEDS: metroNIDAZOLE/NS 500 MG IVPB 500 MG/100 ML BAG 100 MG IV ×3 (05:13→21:12)
[2025-04-15] MEDS: INSULIN LISPRO (AdmeLOG) 1 UNIT/0.01 ML UNIT SC ×2 (05:13→11:47)
[2025-04-15 05:30] LABS: Basophils # (Auto) 0.0 Thou/mm3 (0.0-0.2); Basophils % (Auto) 0 % (0-2.5); Eosinophils # (Auto) 0.6 Thou/mm3 (0.0-0.5); Eosinophils % (Auto) 5 % (0-10); Hematocrit 30.3 % (41.0-53.0); Hemoglobin 9.3 g/dL (13.5-16.0); Immature Granulocytes Auto 0.17 Thou/mm3 (0.00-0.00); Lymphocytes # (Auto) 2.2 Thou/mm3 (1.0-4.8); Lymphocytes % (Auto) 17 % (10-50); Mean Corpuscular HGB Conc 30.7 g/dl (31.0-37.0); Mean Corpuscular Hemoglobin 28.4 pg (25.0-35.0); Mean Corpuscular Volume 93 fL (80-100); Monocytes # (Auto) 1.4 Thou/mm3 (0.0-0.8); Monocytes % (Auto) 11 % (0-12); Neutrophils # (Auto) 8.7 Thou/mm3 (1.8-7.7); Neutrophils % (Auto) 66 % (37-80); Nucleated Red Blood Cell # 0.00 Thou/mm3 (0.00-0.00); Nucleated Red Blood Cell % 0 /100 WBC (0); Platelet Count 356 Thou/mm3 (140-440); RDW Standard Deviation 56.3 fL (35.1-43.9); Red Blood Count 3.27 Miln/mm3 (4.50-5.90); White Blood Count 13.2 Thou/mm3 (3.8-10.6)
[2025-04-15 05:53] LABS: Partial Thromboplastin Time 70.9 Seconds (22.0-36.0)
[2025-04-15 05:54] LABS: Alanine Aminotransferase 11 U/L (10-49); Albumin, Serum 2.9 gm/dL (3.4-4.8); Albumin/Globulin Ratio 1.2 (1.2-2.2); Alkaline Phosphatase 182 U/L (46-116); Anion Gap 9 (7-16); Aspartate Amino Transferase 31 U/L (0-34); BUN/Creatinine Ratio 23 Ratio (12-20); Bilirubin,Total 0.3 mg/dL (0.3-1.2); Blood Urea Nitrogen 35 mg/dL (9-23); Calcium 7.5 mg/dL (8.3-10.6); Calcium (Corrected) 8.4 mg/dL (8.5-10.1); Carbon Dioxide 33.8 mMol/L (20.0-31.0); Chloride 101 mMol/L (98-107); Creatinine (Component) 1.5 mg/dL (0.6-1.3); Estimated Creatinine Clearance 81.1 mL/min (>60); Globulin 2.4 gm/dL (2.3-3.5); Glucose 158 mg/dL (74-106); Magnesium 2.1 mg/dL (1.6-2.6); Osmolality,Calculated 297 (275-295); Phosphorous 3.5 mg/dL (2.4-5.1); Potassium 3.6 mMol/L (3.4-5.1); Sodium 144 mMol/L (136-145); Total Protein 5.3 gm/dL (5.7-8.2); eGFR 51 See Note
[2025-04-15] MEDS: Heparin/D5w 25K 250 ML Ivpb 25,000 UNIT/250 ML BAG 21.926 UNIT IV ×2 (06:21→19:43)
[2025-04-15] MEDS: METOPROLOL SUCCINATE XL 25 MG TABCR 100 MG GT ×2 (08:31→20:44)
[2025-04-15] MEDS: INSULIN GLARGINE (Lantus) 5 UNIT/0.05 ML (PER 5 UNITS) 38 UNIT SC (08:31)
[2025-04-15] MEDS: AMIODARONE HCL 200 MG TABLET GT (08:32)
[2025-04-15] MEDS: LANSOPRAZOLE 30 MG TAB.RAP.DR GT ×2 (08:33→20:44)
--- NOTE | 2025-04-15 10:45 | PC.SS ---
Follow up note: On IV antibiotic, has J tube, on trach & peg, vent at night, and blow by in day. SS attempted to call dad but was unsuccessful. Pt still does not have Medical health insurance to bed placed at [facility].
--- NOTE | 2025-04-15 14:42 | ESPR_ITS ---
<Statement entered by Evi Betts MD - 04/16/25 02:38> Patient was seen and examined by me personally. I have directly supervised and reviewed documentation by the team resident and agree with its findings with any exceptions or additional findings as below. Plan of care was discussed with the attending, Dr. Mccurdy. Mr. Ortega is a 64-year-old male with past medical history of morbid obesity, type 2 diabetes, hypertension, afib, chronic respiratory failure, BASIA/OHS, and R- sided diastolic HF who was admitted to [facility] on 02/27/2025 for acute on chronic respiratory failure, eventually requiring tracheostomy placement due to failure to remain extubated x3. Patient was transferred out to [facility] on 04/09/2025 for bariatric surgery service for insertion of a laparoscopic J-tube placement, now transferred back since 04/13/2025. hand cloth folder assessed patient and recommended general surgery assessment to see if debridement would be beneficial, otherwise wound care orders added. Later in the day, patient had 2 rapid responses due to pulling out his trach. Patient desaturated to 60-70% but with reinsertion quickly recovered to 90s. Thus decision was made to have sitter present and mitten restraints. Should it be necessary soft wrist restraints may also be applied. Evi Betts, PGY-2 Documentation for date of: 04/15/25 Subjective Subjective Interval history: Patient seen and examined at bedside. Patient is pending wound care evaluation for the unstageable sacral ulcer. Will continue IV antibiotics for now, patient will possibly be placed to LTAC. Will continue heparin drip for now. Patient otherwise has no current complaints, will continue to monitor. Exam Vital Signs Temp Pulse Resp BP Pulse Ox O2 Del Method O2 Flow Rate 97.2 F 85 24 H 111/78 91 L Blow-by 10 04/15/25 12:04/15/25 12:04/15/25 12:04/15/25 12:04/15/25 12:04/15/25 12:04/15/25 06:47 FiO2 50 04/15/25 06:47 Narrative Exam General: AAOx3, morbidly obese, lying in bed HEENT: Tracheostomy, appears dry, PERRLA Cardiovascular: S1, S2, radial pulses +2 bilat, regular rate, possible ejection systolic murmur Pulmonary: Minimal crackles no wheezing GI: Jejunostomy tube in place and present, no active drainage Extremities: Trace edema in lower extremities bilaterally, dorsalis pedis pulses +2 bilaterally Neuro: AAOx3, limited exam as patient is bedbound at this time Objective Labs 04/16/25 05:22 04/16/25 05:22 Labs: Laboratory Results - last 24 hr 04/15/25 05:04 WBC 13.2 H RBC 3.27 L Hgb 9.3 L Hct 30.3 L MCV 93 MCH 28.4 MCHC 30.7 L RDW Std Deviation 56.3 H Plt Count 356 Neut % (Auto) 66 Lymph % (Auto) 17 [place] % (Auto) 11 Eos % (Auto) 5 Baso % (Auto) 0 Neut # (Auto) 8.7 H Lymph # (Auto) 2.2 [place] # (Auto) 1.4 H Eos # (Auto) 0.6 H Baso # (Auto) 0.0 Immature Gran # (Auto) 0.17 H Absolute Nucleated RBC 0.00 Immature Gran % 1 H Nucleated RBC % 0 APTT 70.9 H Sodium 144 Potassium 3.6 Chloride 101 Carbon Dioxide 33.8 H Anion Gap 9 BUN 35 H Creatinine 1.5 H Estim Creat Clear Calc 81.1 eGFR 51 L BUN/Creatinine Ratio 23 H Glucose 158 H Calculated Osmolality 297 H Calcium 7.5 L Corrected Calcium 8.4 L Phosphorus 3.5 Magnesium 2.1 Total Bilirubin 0.3 AST 31 ALT 11 Alkaline Phosphatase 182 H Total Protein 5.3 L Albumin 2.9 L Globulin 2.4 Albumin/Globulin Ratio 1.2 Quality Measures Quality Measures VTE therapy Advance care planning discussed with:: patient Assessment & Plan Assessment Current Active Medications: Generic Name Dose Route Start Last Admin Trade Name Freq PRN Reason Stop Dose Admin Hydrocodone Bitart/Acetaminophen 1 tab 04/12/25 23:27 04/14/25 20:25 Hydrocodone/Apap 5/325 Tablet GT 04/17/25 23:26 1 tab Q4HR PRN Administration PAIN SCALE 4-10(Mod-Sev Amiodarone HCl 200 mg 04/13/25 09:00 04/15/25 08:32 Amiodarone Hcl 200 Mg Tablet GT 05/13/25 08:59 200 mg QDAY KOURTNEY Administration Amlodipine Besylate 10 mg 04/13/25 09:00 04/15/25 08:32 Amlodipine Besylate 5 Mg Tablet GT 05/13/25 08:59 10 mg QDAY KOURTNEY Administration Artificial Tears 0 drop 04/14/25 19:33 Artificial Tears 225 Drop/15 Ml Btl BOTH EYES 05/14/25 19:32 PRN PRN TO KEEP EYES MOIST Dextrose 25 ml 04/12/25 23:32 Dextrose 50%-Water Inj 50 Ml Syringe IV 05/12/25 23:31 Q15MIN PRN BG 50-70 responsive npo pt Dextrose 50 ml 04/12/25 23:32 Dextrose 50%-Water Inj 50 Ml Syringe IV 05/12/25 23:31 Q15MIN PRN BG <50 OR BG <70 & pt unresponsive Glucagon 1 mg 04/12/25 23:32 Glucagon Inj 1 Mg Vial IM Q15MIN PRN BG <70, and no IV access Heparin Sodium/Dextrose 25,000 unit in 250 mls @ 17.986 mls/hr 04/12/25 23:45 04/15/25 06:21 Heparin In D5w Ivpb IV 04/26/25 23:44 11.13 units/kg/hr .[id number] KOURTNEY 21.926 mls/hr Administration Protocol 9.13 UNITS/KG/HR Cefepime HCl 2 gm/ Sodium 50 mls @ 100 mls/hr 04/13/25 13:08 04/15/25 13:11 Chloride IV 04/20/25 13:07 100 mls/hr Q8HR KOURTNEY Administration Metronidazole 500 mg in 100 mls @ 200 mls/hr 04/13/25 13:09 04/15/25 13:11 Flagyl 500 Mg Iv IV 04/20/25 13:08 100 mls/hr Q8HR KOURTNEY Administration Insulin Glargine 38 unit 04/13/25 09:00 04/15/25 08:31 Insulin Glargine (Lantus) 5 Unit/0.05 Ml (Per 5 Units) SC 05/13/25 08:59 38 unit QDAY KOURTNEY Administration Insulin Human Lispro 0 unit 04/13/25 00:00 04/15/25 11:47 Insulin Lispro (Admelog) 1 Unit/0.01 Ml Unit SC 05/13/25 00:00 2 unit Q6HR KOURTNEY Administration Protocol Lansoprazole 30 mg 04/14/25 21:00 04/15/25 08:33 Lansoprazole 30 Mg Tab. GT 05/13/25 08:59 30 mg BID KOURTNEY Administration Metoprolol Succinate 100 mg 04/13/25 09:00 04/15/25 08:31 Metoprolol Succinate Xl 25 Mg Tabcr GT 05/13/25 08:59 100 mg BID KOURTNEY Administration Ondansetron HCl 4 mg 04/12/25 23:27 Ondansetron Inj 2 Mg/Ml Inj 2 Ml IVP 05/12/25 23:26 Q6H PRN NAUSEA OR VOMITING Protocol Plan Assessment 64-year-old male with past medical history of DM2, hypertension, A-fib, and Jehova's witness was admitted to the ICU on 02/27/2025 for shock and acute hypoxic respiratory failure. He is s/p laparoscopic J-tube placement from [facility]. #Jejunostomy tube #Abdominal abscess Patient report said that there was an intra-abdominal abscess that have could have been from a perforated ulcer in the past See also note reviewed, mentions that patient likely had a marginal ulcer, but also was not seen on EGD without, currently patient has no abdominal tenderness and is totally asymptomatic. No current drain at this time Patient is status post laparoscopic J-tube placement and is currently on feeds Patient will continue to have this tube and will likely go to a long-term care facility with this until patient can swallow safely Plan: ? Continue with cefepime IV and Flagyl IV at this time ? Resumed tube feeds per RD recommendations ? Monitor vitals closely #Acute kidney injury DDx: Prerenal versus ATN versus obstructive Creatinine 1.6 today Patient looks clinically hypovolemic at this time Patient's sodium is 143, it was 140 this morning. This happened after 500 cc NS, will increase water flushes rather than bolus b/c of concern for hypernatremia Plan: ? Continue with water flushes, 60 cc/h ? Avoid nephrotoxic agents ? Renally dose medicines #Right diastolic CHF Patient appears clinically dry at this point, will hold on diuresis at this time Plan: - Continue strict daily body weight - Holding diuresis - Daily weights - Strict I&O #Acute on Chronic Hypoxic Hypercapnic Respiratory Failure #Aspiration Pneumonia #Obesity hypoventilation syndrome and obstructive sleep apnea #Dysphagia #Tracheostomy Patient was intubated and ventilated due to hypoxic respiratory failure, was unable to be extubated. Tracheostomy was placed. PEG tube was able to be placed, patient transferred to [facility] for laparoscopic J-tube placement, is now being transferred back after procedure successfully completed Plan: - Dietary consulted, recommendations appreciated - Ventilator, respiratory therapy consulted - Blow-by during the day, ventilation at night ? Continue with cefepime and Flagyl IV at this time #Hx of A-fib [id number] score of 3 points indicating 3.2% risk of stroke per year HAS-BLED: 0 Currently rhythm controlled Plan: - Heparin drip - Amio 200 mg QDAY - Metoprolol succinate 100 twice daily - Keep potassium and magnesium above 4 and 2 respectively - Telemetry #Right internal jugular venous thrombosis #Right arm swelling Continuing free water flushes, patient has gone multiple days of heparin drip since 04/01 Plan: ? Continue heparin drip protocol (04/01- ? Will need to transition to Xarelto at some point #Decubitus ulcer #Chronic back pain Not requiring surgical intervention at this time Unstageable sacral ulcer Plan: - Monitor for signs of infection - Wound care - [place] 5 as needed - Skin barrier creams PRN #Morbid obesity #DM2 A1C 7.6 on 03/05/2025 Patient has a BMI of 79.5 Plan: - ISS scale 2 - Hypoglycemia protocol ordered - 38 units of Lantus #Health Maintenance Disposition: Telemetry DVT prophylaxis: Heparin drip GI prophylaxis: Protonix Diet: 2Cal Tube Feeds with 60 cc/hour water flush CODE STATUS:Full code Case discussed with Attending Dr. Mccurdy and Dr. Betts PGY2. Elizabeth Lamas PGY1 Disclaimer: This note was dictated by speech recognition. Minor errors in shuttler may be present due to voice recognition software. Attending Provider Attestation/Addendum Face to face evaluation was performed by me. I have personally seen and examined the patient. I discussed the assessment and plan with the entire medicine team. I reviewed available medical records, imaging studies, laboratory results. I agree with the above subjective data, objective findings, assessment and plan except as corrected by me or noted below Chronic hypoxic respite failure status post tracheostomy with trach collar History of chronic atrial fibrillation Essential hypertension Dysphagia Encephalopathy acute on chronic likely metabolic Type 2 diabetes requiring insulin therapy Essential hypertension Right IJ thrombosis/DVT continue with anticoagulation -Continue anticoagulation as ordered -Continue respiratory therapy, ventilator at bedside, trach collar care - Continue medications as ordered -Therapy and discharge planning Soft mittens, consider restraints and sitter. Patient pulled his trach out, rapid response was called RT and nursing staff arrived trach was found on the floor was placed back, x-ray ordered respiratory status improved oxygen saturation improved as well. More than > 30 minutes spent on the encounter
--- NOTE | 2025-04-15 16:04 | PC.SS ---
SS has spoken to dad who explained he has applied for Medical for pt and was informed by medical worker pt has qualified. SS has faxed [facility] inquiry using [employer] Fax.
--- NOTE | 2025-04-15 17:59 | XR_ITS ---
Examination: AP chest single view Technique one AP portable semiupright chest single view Date and time: April 15, 2025, 1929 hours Comparison April 09, 2025 INDICATIONS: Tracheostomy tube position, hypoxic respiratory failure FINDINGS: Diffuse right lung pneumonia Mild heart failure with prominent cardiac contour and prominent vascular congestion. Tracheostomy tube tip 4.9 cm above [place] IMPRESSION: Diffuse right lung pneumonia. Mild heart failure
--- NOTE | 2025-04-15 18:03 | PD.RESEVENT ---
Documentation for date of: 04/15/25 Event Note Event Note: Rapid response called for the patient around 6 PM. Per nursing patient's trach collar was dislodged and was lying on the floor, patient was desaturating with SpO2 in 80s, respiratory therapist was able to secure airway, was able to deep suction without any resistance. Patient's SpO2 improved to greater than 92 eventually, lowest SpO2 noted during the rapid response was in the 60s. Patient's mentation at baseline, ordered chest x-ray. Patient will be placed on secure mittens and we will place avasure telesitter in patient's room. Will follow chest x-ray and closely monitor patient. No other upper response was called around 6:15 PM Patient's trach was dislodged again, lying on patient's chest, was reinserted without any complications, pending chest x-ray. Will start patient on one-to-one observation, mittens were secured at bedside. Pending chest x-ray, one-to-one sitter provided to the patient. Patient's mother at bedside was updated on recent events, verbalized understanding. Case discussed with Attending Dr. Mccurdy. Elizabeth Lamas PGY1 Disclaimer: This note was dictated by speech recognition. Minor errors in stream control officer may be present due to voice recognition software.
--- NOTE | 2025-04-15 18:50 | PC.RT ---
Rapid called approx 1800. Arrived at bedside w/ RT Garth and was informed pt was found decanulated with trach on floor. NSG was not able to locate backup trach which was located in an equipment bag on the ventilator (behind the monitor which made it not in plain view). Trach was reinserted by nsg prior to our arrival. Ambu bag was being used to ventilate the pt and was taken over by RT. RT checked for patency of airway by advancing sxn tube. Patency was indicated. Bagging of pt brought spo2 to mid 90's (was in high 80's when RT started bagging pt). Returned pt to blow by at 12L/100%. Discussed with MD about placing mittens on pt at this time as to why he became decanulated was not known.
--- NOTE | 2025-04-15 19:45 | PC.NURSE ---
At approximately 1748 I responded to patient room as patient oxygen was dropping. Upon entering patient room, patient trach had been pulled out, and patient appeared slightly bluish, while saturating at 78% on room air. Rapid Response was called at 1750. During the rapid, the trach was reinserted and oxygen was reapplied. Patient was saturating at 94 % after being reconnected.
--- NOTE | 2025-04-15 19:49 | PC.NURSE ---
At approximately 1814, respiratory notified me that when going in to do an EKG, patient had removed his trach again. Upon entering room, patient was saturating on room air at 82%. A Rapid Response was initiated at 1816. During the rapid response, trach and oxygen were reapplied. Mittens were applied. 1 to [address] At the end of rapid, patient was saturating at 100% on blow by at 10L 70% Fio2.
[2025-04-15] MEDS: COLLAGENASE OINT 30 GM TUBE TOP (23:06)
[2025-04-15] MEDS: SOD HYPOCHLORITE 1/4 STR 473 ML BTL IRRIG (23:06)
[2025-04-16] VITALS (12 sets, daily range): BP systolic 105–129; BP diastolic 72–98; PULSE 81–93; RESP 19–36; TEMP 35.9–36.6; O2SAT 93–96; BMI 68.6
[2025-04-16] MEDS: CEFEPIME INJ 2 GM in SODIUM CHLORIDE 0.9% (Popper) 50 ML IV ×3 (05:37→21:11)
[2025-04-16] MEDS: metroNIDAZOLE/NS 500 MG IVPB 500 MG/100 ML BAG 100 MG IV ×3 (05:38→21:12)
[2025-04-16 05:50] LABS: Basophils # (Auto) 0.1 Thou/mm3 (0.0-0.2); Basophils % (Auto) 0 % (0-2.5); Eosinophils # (Auto) 0.5 Thou/mm3 (0.0-0.5); Eosinophils % (Auto) 4 % (0-10); Hematocrit 33.1 % (41.0-53.0); Hemoglobin 10.4 g/dL (13.5-16.0); Immature Granulocytes Auto 0.24 Thou/mm3 (0.00-0.00); Lymphocytes # (Auto) 2.6 Thou/mm3 (1.0-4.8); Lymphocytes % (Auto) 19 % (10-50); Mean Corpuscular HGB Conc 31.4 g/dl (31.0-37.0); Mean Corpuscular Hemoglobin 28.3 pg (25.0-35.0); Mean Corpuscular Volume 90 fL (80-100); Monocytes # (Auto) 1.3 Thou/mm3 (0.0-0.8); Monocytes % (Auto) 10 % (0-12); Neutrophils # (Auto) 8.8 Thou/mm3 (1.8-7.7); Neutrophils % (Auto) 65 % (37-80); Nucleated Red Blood Cell # 0.00 Thou/mm3 (0.00-0.00); Nucleated Red Blood Cell % 0 /100 WBC (0); Platelet Count 399 Thou/mm3 (140-440); RDW Standard Deviation 55.2 fL (35.1-43.9); Red Blood Count 3.67 Miln/mm3 (4.50-5.90); White Blood Count 13.4 Thou/mm3 (3.8-10.6)
[2025-04-16 06:34] LABS: Alanine Aminotransferase 11 U/L (10-49); Albumin, Serum 3.1 gm/dL (3.4-4.8); Albumin/Globulin Ratio 1.1 (1.2-2.2); Alkaline Phosphatase 203 U/L (46-116); Anion Gap 7 (7-16); Aspartate Amino Transferase 27 U/L (0-34); BUN/Creatinine Ratio 23 Ratio (12-20); Bilirubin,Total 0.3 mg/dL (0.3-1.2); Blood Urea Nitrogen 34 mg/dL (9-23); Calcium 8.3 mg/dL (8.3-10.6); Calcium (Corrected) 9.0 mg/dL (8.5-10.1); Carbon Dioxide 34.6 mMol/L (20.0-31.0); Chloride 100 mMol/L (98-107); Creatinine (Component) 1.5 mg/dL (0.6-1.3); Estimated Creatinine Clearance 81.7 mL/min (>60); Globulin 2.7 gm/dL (2.3-3.5); Glucose 149 mg/dL (74-106); Magnesium 2.3 mg/dL (1.6-2.6); Osmolality,Calculated 293 (275-295); Potassium 4.0 mMol/L (3.4-5.1); Sodium 142 mMol/L (136-145); Total Protein 5.8 gm/dL (5.7-8.2); eGFR 51 See Note
[2025-04-16 06:38] LABS: Partial Thromboplastin Time 66.7 Seconds (22.0-36.0)
[2025-04-16] MEDS: INSULIN GLARGINE (Lantus) 5 UNIT/0.05 ML (PER 5 UNITS) 38 UNIT SC (09:13)
[2025-04-16] MEDS: LANSOPRAZOLE 30 MG TAB.RAP.DR GT ×2 (09:15→20:30)
[2025-04-16] MEDS: AMIODARONE HCL 200 MG TABLET GT (09:15)
[2025-04-16] MEDS: METOPROLOL SUCCINATE XL 25 MG TABCR 100 MG GT ×2 (09:16→20:30)
--- NOTE | 2025-04-16 09:53 | PC.SS ---
Addendum entered by Janessa Ramírez 04/16/25 16:25: SS spoke to Rosa, a wine sales representative from patient's health insurance who is aware [facility]. However, patient's health insurance is contracted with [facility] ([facility]). SS has sent inquiry to [facility] using [employer]. Addendum entered by Janessa Ramírez 04/16/25 15:36: SS has received phone call from Jose from [facility] who states they can accept pt. Per Jose, they are not contracted with patient's health insurance and will require letter of agreement. SS has spoken to patient's dad who explained pt is retired and receives SSI $2,373.00 month. Dad is aware [facility] has accepted. SS has also sent inquiry to [facility] for terminal make up operator placement using [employer] (250 mile radius from [facility]). Dad is aware. Dad states he is unable to care for pt at home. SS spoke to Kaleigh from [facility] who is aware of inquire and will inform Janneth. Addendum entered by Janessa Ramírez 04/16/25 10:51: Per Cely, director of financial reporting she will contact pt registration to add Medical Health Insurance to patient's facesheet. Medical information is required for placement. Original Note: SS spoke to Cely the director of financial reporting who ran patient's social security and pt now has Medical with a share of cost of $1,5740.00 every month. SS spoke to patient's dad who explained pt is retired and receives $2,373.00 in social security. Dad is aware SS is seeking placement at the LT and Subacute. Dr. Negron is consulting.
--- NOTE | 2025-04-16 11:46 | ESPR_ITS ---
<Statement entered by Evi Betts MD - 04/16/25 15:43> Patient was seen and examined by me personally. I have directly supervised and reviewed documentation by the team resident and agree with its findings with any exceptions or additional findings as below. Plan of care was discussed with the attending, Dr. Alicia. Evi Betts, PGY-2 Documentation for date of: 04/16/25 Subjective Subjective Interval history: Patient seen and examined at bedside. Patient is off restraints, complying with instructions, patient is unable to talk. Patient does mouth that he has itching/irritation around the trach site. Will hold heparin drip and tube feeds at midnight, will be evaluated by general surgery tomorrow for possible bedside debridement. Will continue IV antibiotics, chest x-ray from yesterday did not show right- sided pneumonia. Patient will possibly need LTAC/long-term acute care facility placement. Exam Vital Signs Temp Pulse Resp BP Pulse Ox O2 Del Method O2 Flow Rate 96.8 F 93 19 126/97 H 95 Blow-by 10 04/16/25 08:00 04/16/25 09:16 04/16/25 08:00 04/16/25 09:16 04/16/25 08:00 04/16/25 08:00 04/16/25 07:06 FiO2 50 04/16/25 07:06 Narrative Exam General: AAOx3, morbidly obese, lying in bed HEENT: Tracheostomy, appears dry, PERRLA Cardiovascular: S1, S2, radial pulses +2 bilat, regular rate, possible ejection systolic murmur Pulmonary: Minimal crackles no wheezing GI: Jejunostomy tube in place and present, no active drainage Extremities: Trace edema in lower extremities bilaterally, dorsalis pedis pulses +2 bilaterally Neuro: AAOx3, limited exam as patient is bedbound at this time Objective Labs 04/16/25 05:22 04/16/25 05:22 Labs: Laboratory Results - last 24 hr 04/16/25 05:22 WBC 13.4 H RBC 3.67 L Hgb 10.4 L Hct 33.1 L MCV 90 MCH 28.3 MCHC 31.4 RDW Std Deviation 55.2 H Plt Count 399 D Neut % (Auto) 65 Lymph % (Auto) 19 [place] % (Auto) 10 Eos % (Auto) 4 Baso % (Auto) 0 Neut # (Auto) 8.8 H Lymph # (Auto) 2.6 [place] # (Auto) 1.3 H Eos # (Auto) 0.5 Baso # (Auto) 0.1 Immature Gran # (Auto) 0.24 H Absolute Nucleated RBC 0.00 Immature Gran % 2 H Nucleated RBC % 0 APTT 66.7 H Sodium 142 Potassium 4.0 Chloride 100 Carbon Dioxide 34.6 H Anion Gap 7 BUN 34 H Creatinine 1.5 H Estim Creat Clear Calc 81.7 eGFR 51 L BUN/Creatinine Ratio 23 H Glucose 149 H Calculated Osmolality 293 Calcium 8.3 Corrected Calcium 9.0 Magnesium 2.3 Total Bilirubin 0.3 AST 27 ALT 11 Alkaline Phosphatase 203 H D Total Protein 5.8 Albumin 3.1 L Globulin 2.7 Albumin/Globulin Ratio 1.1 L Quality Measures Quality Measures VTE therapy Advance care planning discussed with:: patient Assessment & Plan Assessment Current Active Medications: Generic Name Dose Route Start Last Admin Trade Name Freq PRN Reason Stop Dose Admin Hydrocodone Bitart/Acetaminophen 1 tab 04/12/25 23:27 04/14/25 20:25 Hydrocodone/Apap 5/325 Tablet GT 04/17/25 23:26 1 tab Q4HR PRN Administration PAIN SCALE 4-10(Mod-Sev Amiodarone HCl 200 mg 04/13/25 09:00 04/16/25 09:15 Amiodarone Hcl 200 Mg Tablet GT 05/13/25 08:59 200 mg QDAY KOURTNEY Administration Amlodipine Besylate 10 mg 04/13/25 09:00 04/16/25 09:15 Amlodipine Besylate 5 Mg Tablet GT 05/13/25 08:59 10 mg QDAY KOURTNEY Administration Artificial Tears 0 drop 04/14/25 19:33 Artificial Tears 225 Drop/15 Ml Btl BOTH EYES 05/14/25 19:32 PRN PRN TO KEEP EYES MOIST Collagenase 0 gm 04/15/25 21:00 04/15/25 23:06 Collagenase Oint 30 Gm Tube TOP 05/15/25 20:59 1 applicatio HS KOURTNEY Administration Dextrose 25 ml 04/12/25 23:32 Dextrose 50%-Water Inj 50 Ml Syringe IV 05/12/25 23:31 Q15MIN PRN BG 50-70 responsive npo pt Dextrose 50 ml 04/12/25 23:32 Dextrose 50%-Water Inj 50 Ml Syringe IV 05/12/25 23:31 Q15MIN PRN BG <50 OR BG <70 & pt unresponsive Glucagon 1 mg 04/12/25 23:32 Glucagon Inj 1 Mg Vial IM Q15MIN PRN BG <70, and no IV access Heparin Sodium/Dextrose 25,000 unit in 250 mls @ 17.986 mls/hr 04/12/25 23:45 04/16/25 07:07 Heparin In D5w Ivpb IV 04/26/25 23:44 11.13 units/kg/hr .[id number] KOURTNEY 21.926 mls/hr Titration Protocol 9.13 UNITS/KG/HR Cefepime HCl 2 gm/ Sodium 50 mls @ 100 mls/hr 04/13/25 13:08 04/16/25 05:37 Chloride IV 04/20/25 13:07 100 mls/hr Q8HR KOURTNEY Administration Metronidazole 500 mg in 100 mls @ 200 mls/hr 04/13/25 13:09 04/16/25 05:38 Flagyl 500 Mg Iv IV 04/20/25 13:08 100 mls/hr Q8HR KOURTNEY Administration Insulin Glargine 38 unit 04/13/25 09:00 04/16/25 09:13 Insulin Glargine (Lantus) 5 Unit/0.05 Ml (Per 5 Units) SC 05/13/25 08:59 38 unit QDAY KOURTNEY Administration Insulin Human Lispro 0 unit 04/13/25 00:00 04/16/25 05:39 Insulin Lispro (Admelog) 1 Unit/0.01 Ml Unit SC 05/13/25 00:00 Not Given Q6HR KOURTNEY Protocol Lansoprazole 30 mg 04/14/25 21:00 04/16/25 09:15 Lansoprazole 30 Mg Tab.Rap. GT 05/13/25 08:59 30 mg BID KOURTNEY Administration Metoprolol Succinate 100 mg 04/13/25 09:00 04/16/25 09:16 Metoprolol Succinate Xl 25 Mg Tabcr GT 05/13/25 08:59 100 mg BID KOURTNEY Administration Ondansetron HCl 4 mg 04/12/25 23:27 Ondansetron Inj 2 Mg/Ml Inj 2 Ml IVP 05/12/25 23:26 Q6H PRN NAUSEA OR VOMITING Protocol Sodium Hypochlorite 473 ml 06/02/25 21:00 04/15/25 23:06 Sod Hypochlorite /4 Str 473 Ml Btl IRRIG 05/15/25 20:[address] [facility] Administration Plan Assessment 64-year-old male with past medical history of DM2, hypertension, A-fib, and Jehova's witness was admitted to the ICU on 02/27/2025 for shock and acute hypoxic respiratory failure. He is s/p laparoscopic J-tube placement from [facility]. #Decubitus ulcer #Chronic back pain Not requiring surgical intervention at this time Unstageable sacral ulcer Plan: -Heparin drip and tube feeds will be held at midnight, will be evaluated by general surgery in a.m. for possible debridement -Consulted general surgery - Monitor for signs of infection - Wound care - Empire 5 as needed - Skin barrier creams PRN #Jejunostomy tube #Abdominal abscess Patient report said that there was an intra-abdominal abscess that have could have been from a perforated ulcer in the past See also note reviewed, mentions that patient likely had a marginal ulcer, but also was not seen on EGD without, currently patient has no abdominal tenderness and is totally asymptomatic. No current drain at this time Patient is status post laparoscopic J-tube placement and is currently on feeds Patient will continue to have this tube and will likely go to a long-term care facility with this until patient can swallow safely Plan: ? Continue with cefepime IV and Flagyl IV at this time ? Resumed tube feeds per RD recommendations ? Monitor vitals closely #Acute kidney injury DDx: Prerenal versus ATN versus obstructive Creatinine 1.6 today Patient looks clinically hypovolemic at this time Patient's sodium is 143, it was 140 this morning. This happened after 500 cc NS, will increase water flushes rather than bolus b/c of concern for hypernatremia Plan: ? Continue with water flushes, 60 cc/h ? Avoid nephrotoxic agents ? Renally dose medicines #Right diastolic CHF Patient appears clinically dry at this point, will hold on diuresis at this time Plan: - Continue strict daily body weight - Holding diuresis - Daily weights - Strict I&O #Acute on Chronic Hypoxic Hypercapnic Respiratory Failure #Aspiration Pneumonia #Obesity hypoventilation syndrome and obstructive sleep apnea #Dysphagia #Tracheostomy Patient was intubated and ventilated due to hypoxic respiratory failure, was unable to be extubated. Tracheostomy was placed. PEG tube was able to be placed, patient transferred to [facility] for laparoscopic J-tube placement, is now being transferred back after procedure successfully completed Plan: - Dietary consulted, recommendations appreciated - Respiratory therapy consulted - Blow-by during the day, mechanical ventilation at night as needed ? Continue with cefepime and Flagyl IV at this time #Hx of A-fib [id number] score of 3 points indicating 3.2% risk of stroke per year HAS-BLED: 0 Currently rhythm controlled Plan: - Heparin drip - Amiodarone 200 mg QDAY - Metoprolol succinate 100 twice daily - Keep potassium and magnesium above 4 and 2 respectively - Telemetry #Right internal jugular venous thrombosis #Right arm swelling Continuing free water flushes, patient has gone multiple days of heparin drip since 04/01 Plan: ? Continue heparin drip protocol (04/01- ? Will need to transition to Xarelto at some point #Morbid obesity #DM2 A1C 7.6 on 03/05/2025 Patient has a BMI of 79.5 Plan: - ISS scale 2 - Hypoglycemia protocol ordered - 38 units of Lantus #Health Maintenance Disposition: Telemetry DVT prophylaxis: Heparin drip, will be held at midnight GI prophylaxis: Protonix Diet: 2Cal Tube Feeds with 60 cc/hour water flush CODE STATUS:Full code Case discussed with Attending Dr. Alicia and Dr. Betts PGY2. Elizabeth Lamas PGY1 Disclaimer: This note was dictated by speech recognition. Minor errors in communications associate may be present due to voice recognition software. Attending Provider Attestation/Addendum I attest that I was physically present for the evaluation, physical examination, lab and imaging review of the patient with the residents. I discussed the case with the residents and agree with the findings and plans of care as documented above. At bedside today, patient appears comfortable, denies any new complaints. He had 2 rapid responses yesterday due to dislodgment of tracheostomy tube. WBC count went up from 13.2-13.4. Continues to be on IV cefepime and per concern of aspiration pneumonia. Sputum culture from 04/03/2025 grew Pseudomonas aeruginosa, sensitive to cefepime. Chest x-ray from yesterday shows decreased right lung pneumonia. Continues to be on blow-by, saturating well. Had a speech evaluation today, for possible placement of Passy-Bulpitt valve, unable to do so as patient has larger tracheostomy tube. We will continue with blow-by for now. Wound care has been following the patient, was found to have sacral ulcer, blackened and unstageable, general surgery has been consulted, awaiting recommendations. Kidney function has improved slightly, BUN/creatinine of 34/1.5 today. Patient has been on tube feeding along with free water flushes, we will continue to monitor kidney function closely. Holding heparin and tube feeds after midnight in anticipation of possible debridement tomorrow. Cortez Alicia MD
[2025-04-16] MEDS: INSULIN LISPRO (AdmeLOG) 1 UNIT/0.01 ML UNIT SC (12:10)
[2025-04-16] MEDS: Heparin/D5w 25K 250 ML Ivpb 25,000 UNIT/250 ML BAG 21.926 UNIT IV (12:11)
[2025-04-16] MEDS: SOD HYPOCHLORITE 1/4 STR 473 ML BTL IRRIG (23:45)
[2025-04-16] MEDS: COLLAGENASE OINT 30 GM TUBE TOP (23:45)
[2025-04-17] VITALS (11 sets, daily range): BP systolic 99–117; BP diastolic 75–94; PULSE 62–90; RESP 16–30; TEMP 36.1–36.6; O2SAT 89–95; BMI 68.6
[2025-04-17] MEDS: CEFEPIME INJ 2 GM in SODIUM CHLORIDE 0.9% (Popper) 50 ML IV ×3 (05:13→21:28)
[2025-04-17] MEDS: metroNIDAZOLE/NS 500 MG IVPB 500 MG/100 ML BAG 100 MG IV ×3 (05:15→21:30)
[2025-04-17] MEDS: ONDANSETRON INJ 2 MG/ML INJ 2 ML 4 MG IVP (05:28)
[2025-04-17 07:04] LABS: Basophils # (Auto) 0.0 Thou/mm3 (0.0-0.2); Basophils % (Auto) 0 % (0-2.5); Eosinophils # (Auto) 0.3 Thou/mm3 (0.0-0.5); Eosinophils % (Auto) 2 % (0-10); Hematocrit 32.7 % (41.0-53.0); Hemoglobin 10.0 g/dL (13.5-16.0); Immature Granulocytes Auto 0.17 Thou/mm3 (0.00-0.00); Lymphocytes # (Auto) 2.2 Thou/mm3 (1.0-4.8); Lymphocytes % (Auto) 18 % (10-50); Mean Corpuscular HGB Conc 30.6 g/dl (31.0-37.0); Mean Corpuscular Hemoglobin 27.9 pg (25.0-35.0); Mean Corpuscular Volume 91 fL (80-100); Monocytes # (Auto) 1.3 Thou/mm3 (0.0-0.8); Monocytes % (Auto) 10 % (0-12); Neutrophils # (Auto) 8.4 Thou/mm3 (1.8-7.7); Neutrophils % (Auto) 68 % (37-80); Nucleated Red Blood Cell # 0.00 Thou/mm3 (0.00-0.00); Nucleated Red Blood Cell % 0 /100 WBC (0); Platelet Count 363 Thou/mm3 (140-440); RDW Standard Deviation 55.5 fL (35.1-43.9); Red Blood Count 3.58 Miln/mm3 (4.50-5.90); White Blood Count 12.3 Thou/mm3 (3.8-10.6)
[2025-04-17 07:32] LABS: Alanine Aminotransferase 11 U/L (10-49); Albumin, Serum 3.1 gm/dL (3.4-4.8); Albumin/Globulin Ratio 1.2 (1.2-2.2); Alkaline Phosphatase 173 U/L (46-116); Anion Gap 10 (7-16); Aspartate Amino Transferase 31 U/L (0-34); BUN/Creatinine Ratio 24 Ratio (12-20); Bilirubin,Total 0.3 mg/dL (0.3-1.2); Blood Urea Nitrogen 36 mg/dL (9-23); Calcium 8.0 mg/dL (8.3-10.6); Calcium (Corrected) 8.7 mg/dL (8.5-10.1); Carbon Dioxide 34.6 mMol/L (20.0-31.0); Chloride 99 mMol/L (98-107); Creatinine (Component) 1.5 mg/dL (0.6-1.3); Estimated Creatinine Clearance 81.7 mL/min (>60); Globulin 2.6 gm/dL (2.3-3.5); Glucose 127 mg/dL (74-106); Magnesium 2.3 mg/dL (1.6-2.6); Osmolality,Calculated 297 (275-295); Potassium 4.2 mMol/L (3.4-5.1); Sodium 144 mMol/L (136-145); Total Protein 5.7 gm/dL (5.7-8.2); eGFR 51 See Note
--- NOTE | 2025-04-17 09:30 | PC.SS ---
Follow up note: Possible surgery for debridement by Dr. Negron. SS [facility] from [facility] have [facility] available. SS spoke to Mara from [facility] in [facility] who explained she is able to accept pt but requires insurance authorization and they are able to accommodate patient's weight. Dad is aware and is agreeable. [facility] Subacute Facilities have declined from [facility]. [facility] has no beds available.
--- NOTE | 2025-04-17 10:44 | PD.SURCONS ---
HPI Consult details History of present illness: 64M with HTN, DMII, atrial fibrillation, history of gastric bypass, and super morbid obesity (BMI 68) who was initially admitted on 02/27/25 for shock and respiratory failure s/p tracheostomy, transferred to [facility] for jejunostomy placement and now back at [facility] on heparin gtt for IJ thrombus, noted to have an unstageable decubitus ulcer for which general surgery was consulted. Pt denies any pain to the area, is comfortable with tracheostomy set to supplemental oxygen, and heparin gtt and tube feeds have both been held since midnight Review of Systems Review of Systems ROS Unobtainable: All systems reviewed & no additional complaints except as documented Meds Home Medications and Allergies Home Medications ?Medication ?Instructions ?Recorded ?Confirmed ?Type amlodipine 10 mg tablet 10 mg PO 1XD 02/27/25 04/13/25 History gabapentin 600 mg tablet 600 mg PO 3XD 02/27/25 04/13/25 History glipizide 10 mg tablet 10 mg PO 1XD 02/27/25 04/13/25 History losartan 25 mg tablet 25 mg PO 1XD 02/27/25 04/13/25 History metformin 1,000 mg tablet 1,000 mg PO 2XD 02/27/25 04/13/25 History metoprolol succinate 100 mg 100 mg PO 2XD 02/27/25 04/13/25 History tablet,extended release 24 hr tramadol 50 mg tablet 50 mg PO 3XD 02/27/25 04/13/25 History Allergies Allergy/AdvReac Type Severity Reaction Status Date / Time No Known Allergies Allergy Verified 02/27/25 06:45 Exam Vital Signs Temp Pulse Resp BP Pulse Ox O2 Del Method O2 Flow Rate 97.2 F 70 27 H 99/77 92 L Blow-by 10 04/17/25 08:00 04/17/25 08:00 04/17/25 08:00 04/17/25 08:00 04/17/25 08:00 04/17/25 08:00 04/17/25 04:00 FiO2 50 04/16/25 19:00 Constitutional Constitutional: no acute distress Routine Respiratory Exam Respiratory: Present no resp distress Routine Back/Spine/Pelvis Exam Comments: unstageable sacral decubitus ulcer approx 12cm in transverse dimension, 5cm craniocaudal covered with necrotic skin Results Results: Laboratory Laboratory results: results reviewed Assessment & Plan Plan 64M with HTN, DMII, atrial fibrillation, history of gastric bypass, and super morbid obesity (BMI 68) who was initially admitted on 02/27/25 for shock and respiratory failure s/p tracheostomy, now s/p jejunstomy placement noted to have an unstageable sacral decubitus ulcer. I explained to pt that excisional debridement will be helpful for wound healing and explained risks of bleeding as well as the potential for need for further debridement. Pt expressed understanding and provided his informed consent
--- NOTE | 2025-04-17 10:47 | PD.SURPROC ---
Procedures - Surgery Procedure Comment Procedure Comment: Informed consent obtained Excisional debridement of necrotic tissue of sacral decubitus ulcer down to level of subcutaneous tissue Mild bleeding controlled with direct pressure, silver nitrate, electrocautery and surgicel Pt tolerated procedure well Allevyn placed over wound Abscess I/D Site: other (Sacrum) Sedation/analgesia: none Technique: other (Excisional debridement of necrotic skin overlying the sacral decubitus ulcer with a #15 blade and scissors down to level of subcutaneous tissue) Amount of fluid (mL): 5 Irrigation: No Packing used?: none
[2025-04-17] MEDS: METOPROLOL TARTRATE 25 MG TABLET 100 MG GT ×2 (11:15→20:34)
--- NOTE | 2025-04-17 11:30 | PC.NURSE ---
Per Dr. Negron, keep heparin until further notice (post beside debridement). She stated she will talk to the pt's main MDs (hospitalist) about when to restart
--- NOTE | 2025-04-17 17:55 | ESPR_ITS ---
Documentation for date of: 04/17/25 Subjective Subjective Interval history: No acute events overnight.?Patient seen and examined at bedside this AM.?He is awake and interactive, able to write on paper to voice thoughts. He is on Blow- by at 10 L. Discussed with the patient that he has been accepted at a [facility] but requires insurance authorization and no exact estimate for how long this may take to complete. Patient underwent bedside debridement by Dr. Negron for sacral ulcer. Heparin drip order resumed after 5 pm. Labs and vitals were reviewed, stable.?No further complaints at this time. Review of systems otherwise negative except what is mentioned above. Exam Vital Signs Temp Pulse Resp BP Pulse Ox O2 Del Method O2 Flow Rate 97.3 F 65 30 H 113/83 92 L Blow-by 10 04/17/25 12:00 04/17/25 12:00 04/17/25 12:00 04/17/25 12:00 04/17/25 12:00 04/17/25 12:00 04/17/25 08:18 FiO2 50 04/17/25 08:18 Narrative Exam General: AAOx3, morbidly obese, lying in bed HEENT: Tracheostomy, appears dry, PERRLA Cardiovascular: S1, S2, radial pulses +2 bilat, regular rate, possible ejection systolic murmur Pulmonary: Minimal crackles no wheezing GI: Jejunostomy tube in place and present, no active drainage Extremities: Trace edema in lower extremities bilaterally, dorsalis pedis pulses +2 bilaterally Neuro: AAOx3, limited exam as patient is bedbound at this time Objective Labs 04/18/25 04:38 04/18/25 04:38 Labs: Laboratory Results - last 24 hr 04/17/25 06:01 WBC 12.3 H RBC 3.58 L Hgb 10.0 L Hct 32.7 L MCV 91 MCH 27.9 MCHC 30.6 L RDW Std Deviation 55.5 H Plt Count 363 D Neut % (Auto) 68 Lymph % (Auto) 18 Dickenson % (Auto) 10 Eos % (Auto) 2 Baso % (Auto) 0 Neut # (Auto) 8.4 H Lymph # (Auto) 2.2 Dickenson # (Auto) 1.3 H Eos # (Auto) 0.3 Baso # (Auto) 0.0 Immature Gran # (Auto) 0.17 H Absolute Nucleated RBC 0.00 Immature Gran % 1 H Nucleated RBC % 0 Sodium 144 Potassium 4.2 Chloride 99 Carbon Dioxide 34.6 H Anion Gap 10 BUN 36 H Creatinine 1.5 H Estim Creat Clear Calc 81.7 eGFR 51 L BUN/Creatinine Ratio 24 H Glucose 127 H Calculated Osmolality 297 H Calcium 8.0 L Corrected Calcium 8.7 Magnesium 2.3 Total Bilirubin 0.3 AST 31 ALT 11 Alkaline Phosphatase 173 H D Total Protein 5.7 Albumin 3.1 L Globulin 2.6 Albumin/Globulin Ratio 1.2 Quality Measures Quality Measures VTE therapy Advance care planning discussed with:: patient Assessment & Plan Assessment Current Active Medications: Generic Name Dose Route Start Last Admin Trade Name Freq PRN Reason Stop Dose Admin Hydrocodone Bitart/Acetaminophen 1 tab 04/12/25 23:27 04/14/25 20:25 Hydrocodone/Apap 5/325 Tablet GT 04/17/25 23:26 1 tab Q4HR PRN Administration PAIN SCALE 4-10(Mod-Sev Amiodarone HCl 200 mg 04/13/25 09:00 04/17/25 09:00 Amiodarone Hcl 200 Mg Tablet GT 05/13/25 08:59 Not Given QDAY KOURTNEY Amlodipine Besylate 10 mg 04/13/25 09:00 04/17/25 09:00 Amlodipine Besylate 5 Mg Tablet GT 05/13/25 08:59 Not Given QDAY KOURTNEY Artificial Tears 0 drop 04/14/25 19:33 Artificial Tears 225 Drop/15 Ml Btl BOTH EYES 05/14/25 19:32 PRN PRN TO KEEP EYES MOIST Ascorbic Acid 500 mg 04/17/25 21:00 Ascorbic Acid 250 Mg Tablet GT 05/17/25 20:59 BID KOURTNEY Collagenase 0 gm 04/15/25 21:00 04/16/25 23:45 Collagenase Oint 30 Gm Tube TOP 05/15/25 20:59 1 applicatio HS KOURTNEY Administration Dextrose 25 ml 04/12/25 23:32 Dextrose 50%-Water Inj 50 Ml Syringe IV 05/12/25 23:31 Q15MIN PRN BG 50-70 responsive npo pt Dextrose 50 ml 04/12/25 23:32 Dextrose 50%-Water Inj 50 Ml Syringe IV 05/12/25 23:31 Q15MIN PRN BG <50 OR BG <70 & pt unresponsive Glucagon 1 mg 04/12/25 23:32 Glucagon Inj 1 Mg Vial IM Q15MIN PRN BG <70, and no IV access Heparin Sodium/Dextrose 25,000 unit in 250 mls @ 17.986 mls/hr 04/12/25 23:45 04/17/25 00:00 Heparin In D5w Ivpb IV 04/26/25 23:44 Infused .[id number] [facility] Titration Protocol 9.13 UNITS/KG/HR Cefepime HCl 2 gm/ Sodium 50 mls @ 100 mls/hr 04/13/25 13:08 04/17/25 14:50 Chloride IV 04/20/25 13:07 100 mls/hr Q8HR KOURTNEY Administration Metronidazole 500 mg in 100 mls @ 200 mls/hr 04/13/25 13:09 04/17/25 14:45 Flagyl 500 Mg Iv IV 04/20/25 13:08 100 mls/hr Q8HR KOURTNEY Administration Insulin Glargine 38 unit 04/13/25 09:00 04/17/25 09:00 Insulin Glargine (Lantus) 5 Unit/0.05 Ml (Per 5 Units) SC 05/13/25 08:59 Not Given QDAY [facility] Insulin Human Lispro 0 unit 04/13/25 00:00 04/17/25 17:29 Insulin Lispro (Admelog) 1 Unit/0.01 Ml Unit SC 05/13/25 00:00 Not Given Q6HR [facility] Protocol Lansoprazole 30 mg 04/14/25 21:00 04/17/25 09:00 Lansoprazole 30 Mg Tab.Joshua. GT 05/13/25 08:59 Not Given BID [facility] Metoprolol Tartrate 100 mg 04/17/25 10:15 04/17/25 11:15 Metoprolol Tartrate 25 Mg Tablet GT 05/17/25 10:14 100 mg BID KOURTNEY Administration Ondansetron HCl 4 mg 04/12/25 23:27 04/17/25 05:28 Ondansetron Inj 2 Mg/Ml Inj 2 Ml IVP 05/12/25 23:26 4 mg Q6H PRN Administration NAUSEA OR VOMITING Protocol Sodium Hypochlorite 473 ml 04/15/25 21:00 04/16/25 23:45 Sod Hypochlorite 1/4 Str 473 Ml Btl IRRIG 05/15/25 20:59 1 applicatio HS [facility] Administration Zinc Sulfate 220 mg 04/18/25 09:00 Zinc Sulfate 220 Mg Capsule GT 05/18/25 08:59 QDAY [facility] Plan Assessment 64-year-old male with past medical history of DM2, hypertension, A-fib, and Jehova's witness was admitted to the ICU on 02/27/2025 for shock and acute hypoxic respiratory failure. He is s/p laparoscopic J-tube placement from [facility]. #Decubitus ulcer #Chronic back pain Not requiring surgical intervention at this time Unstageable sacral ulcer Debridement bedside on 04/17/2025 Plan: - Consulted general surgery, following - Monitor for signs of infection - Wound care - Telephone 5 as needed - Skin barrier creams PRN #Jejunostomy tube #Abdominal abscess Patient report said that there was an intra-abdominal abscess that have could have been from a perforated ulcer in the past See also note reviewed, mentions that patient likely had a marginal ulcer, but also was not seen on EGD without, currently patient has no abdominal tenderness and is totally asymptomatic. No current drain at this time Patient is status post laparoscopic J-tube placement and is currently on feeds Patient will continue to have this tube and will likely go to a long-term care facility with this until patient can swallow safely Plan: ? Continue with cefepime IV and Flagyl IV at this time ? Resumed tube feeds following debridement ? Monitor vitals closely #Acute kidney injury DDx: Prerenal versus ATN versus obstructive Creatinine 1.6 today Patient looks clinically hypovolemic at this time Patient's sodium is 143, it was 140 this morning. This happened after 500 cc NS, will increase water flushes rather than bolus b/c of concern for hypernatremia Plan: ? Continue with water flushes, 60 cc/h ? Avoid nephrotoxic agents ? Renally dose medicines #Right diastolic CHF Patient appears clinically dry at this point, will hold on diuresis at this time Plan: - Continue strict daily body weight - Holding diuresis - Daily weights - Strict I&O #Acute on Chronic Hypoxic Hypercapnic Respiratory Failure #Aspiration Pneumonia #Obesity hypoventilation syndrome and obstructive sleep apnea #Dysphagia #Tracheostomy Patient was intubated and ventilated due to hypoxic respiratory failure, was unable to be extubated. Tracheostomy was placed. PEG tube was able to be placed, patient transferred to [facility] for laparoscopic J-tube placement, is now being transferred back after procedure successfully completed Plan: - Dietary consulted, recommendations appreciated - Respiratory therapy consulted - Blow-by during the day, mechanical ventilation at night as needed ? Continue with cefepime and Flagyl IV at this time #Hx of A-fib [id number] score of 3 points indicating 3.2% risk of stroke per year HAS-BLED: 0 Currently rhythm controlled Plan: - Heparin drip - Amiodarone 200 mg QDAY - Metoprolol succinate 100 twice daily - Keep potassium and magnesium above 4 and 2 respectively - Telemetry #Right internal jugular venous thrombosis #Right arm swelling Continuing free water flushes, patient has gone multiple days of heparin drip since 04/01 Plan: ? Continue heparin drip protocol (04/01- ? Will need to transition to Xarelto at some point #Morbid obesity #DM2 A1C 7.6 on 03/05/2025 Patient has a BMI of 79.5->68.7 Plan: - ISS scale 2 - Hypoglycemia protocol ordered - 38 units of Lantus #Health Maintenance Disposition: Telemetry DVT prophylaxis: Heparin drip, will be held at midnight GI prophylaxis: Protonix Diet: 2Cal Tube Feeds with 60 cc/hour water flush CODE STATUS: Full code Patient plan of care was discussed with the attending physician, Dr. Alicia. Evi Betts, PGY-2 Attending Provider Attestation/Addendum I attest that I was physically present for the evaluation, physical examination, lab and imaging review of the patient with the residents. I discussed the case with the residents and agree with the findings and plans of care as documented above. At bedside today, patient states he is feeling well and does not have any new complaints. Continues to be on blow-by, saturating well. Patient underwent excisional debridement of necrotic tissue of sacral decubitus ulcer down to level of subcutaneous tissue with general surgery. Tolerated the procedure well. Resumed heparin drip and tube feeding after the procedure. Continues to be on IV antibiotics for possible aspiration. Kidney function is stable. If patient is stable tomorrow, we will plan for discharge. Cortez Alicia MD
[2025-04-17] MEDS: ASCORBIC ACID 250 MG TABLET 500 MG GT (20:34)
[2025-04-17] MEDS: LANSOPRAZOLE 30 MG TAB.RAP.DR GT (20:34)
[2025-04-18] VITALS (20 sets, daily range): BP systolic 98–146; BP diastolic 67–85; PULSE 55–98; RESP 12–29; TEMP 36.1–36.9; O2SAT 89–99; BMI 68.6
[2025-04-18] MEDS: INSULIN LISPRO (AdmeLOG) 1 UNIT/0.01 ML UNIT SC ×2 (00:21→06:12)
--- NOTE | 2025-04-18 04:24 | XR_ITS ---
Examination: AP chest single view TECHNIQUE: AP portable semiupright chest single view Date and time: April 18, 2025, 0442 hours Comparison April 15, 2025 INDICATIONS: Hypoxia this week. FINDINGS: Diffuse right lung pneumonia. Mild heart failure with enlarged cardiac contour and prominent vascular congestion. Tracheostomy tube tip 5.5 cm above nunu IMPRESSION: Diffuse right lung pneumonia and possible layered right pleural fluid Mild heart failure
--- NOTE | 2025-04-18 04:27 | PD.RESEVENT ---
Documentation for date of: 04/18/25 Event Note Event Note: Rapid response was called around 4:20 AM due to patient desaturating to the mid 80s lowest being 84%. Patient was on blow-by and his blood pressure was stable and he was less responsive than nights prior as per vice president pharmacy nurse. Patient was able to open his eyes when talked to and was able to follow commands, but he did seem a little bit more lethargic. Patient was suctioned and bagged momentarily and brought his O2 saturation to the mid 90s and he was placed back on the mechanical ventilator at 60% saturating 94%. At this time we will order a chest x-ray, ABG, DuoNebs, and a head CT. Head CT was ordered given that patient was encephalopathic and he was recently in heparin drip therefore intracranial bleed is still in the differentials. At the end of the rapid response patient was saturating well on 60% on mechanical ventilator and his heart rate and blood pressure was stable and patient did not seem flood overloaded and lung sounds were distant likely in the setting of body habitus. Case discussed with my attending Dr. Cali Cornejo, PGY1
--- NOTE | 2025-04-18 04:42 | EKG_ITS ---
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
[2025-04-18] MEDS: ALBUTEROL/IPRATROPIUM (Duoneb) RT SOL 3 ML NEBU INH (04:46)
[2025-04-18 04:57] LABS: Base Excess 6 (-3-3); HCO3 34 mEq/L (20-26); Inspired Oxygen, FIO2 45 %; O2 Saturation 100 % (91-98); PCO2 72 mmHg (32.0-48.0); PO2 132 mmHg (83-108); pH, Arterial 7.28 (7.35-7.45)
[2025-04-18 05:02] LABS: Allen Test Performed/OK; Puncture Site Right Radial
[2025-04-18] MEDS: CEFEPIME INJ 2 GM in SODIUM CHLORIDE 0.9% (Popper) 50 ML IV (05:19)
[2025-04-18] MEDS: metroNIDAZOLE/NS 500 MG IVPB 500 MG/100 ML BAG 100 MG IV ×3 (05:21→21:21)
[2025-04-18 05:36] LABS: Partial Thromboplastin Time 24.8 Seconds (22.0-36.0)
[2025-04-18 05:58] LABS: Alanine Aminotransferase 10 U/L (10-49); Albumin, Serum 3.3 gm/dL (3.4-4.8); Albumin/Globulin Ratio 1.2 (1.2-2.2); Alkaline Phosphatase 188 U/L (46-116); Anion Gap 9 (7-16); Aspartate Amino Transferase 24 U/L (0-34); BUN/Creatinine Ratio 22 Ratio (12-20); Bilirubin,Total 0.3 mg/dL (0.3-1.2); Blood Urea Nitrogen 39 mg/dL (9-23); Calcium 8.3 mg/dL (8.3-10.6); Calcium (Corrected) 8.9 mg/dL (8.5-10.1); Carbon Dioxide 32.8 mMol/L (20.0-31.0); Chloride 100 mMol/L (98-107); Creatinine (Component) 1.8 mg/dL (0.6-1.3); Estimated Creatinine Clearance 68.1 mL/min (>60); Globulin 2.8 gm/dL (2.3-3.5); Glucose 199 mg/dL (74-106); Magnesium 2.6 mg/dL (1.6-2.6); Osmolality,Calculated 298 (275-295); Potassium 4.8 mMol/L (3.4-5.1); Sodium 142 mMol/L (136-145); Total Protein 6.1 gm/dL (5.7-8.2); eGFR 41 See Note
[2025-04-18 06:20] LABS: Basophils # (Auto) 0.1 Thou/mm3 (0.0-0.2); Basophils % (Auto) 0 % (0-2.5); Eosinophils # (Auto) 0.1 Thou/mm3 (0.0-0.5); Eosinophils % (Auto) 0 % (0-10); Hematocrit 34.6 % (41.0-53.0); Hemoglobin 10.5 g/dL (13.5-16.0); Immature Granulocytes Auto 0.28 Thou/mm3 (0.00-0.00); Lymphocytes # (Auto) 2.2 Thou/mm3 (1.0-4.8); Lymphocytes % (Auto) 16 % (10-50); Mean Corpuscular HGB Conc 30.3 g/dl (31.0-37.0); Mean Corpuscular Hemoglobin 28.1 pg (25.0-35.0); Mean Corpuscular Volume 93 fL (80-100); Monocytes # (Auto) 1.4 Thou/mm3 (0.0-0.8); Monocytes % (Auto) 10 % (0-12); Neutrophils # (Auto) 9.7 Thou/mm3 (1.8-7.7); Neutrophils % (Auto) 71 % (37-80); Nucleated Red Blood Cell # 0.00 Thou/mm3 (0.00-0.00); Nucleated Red Blood Cell % 0 /100 WBC (0); Platelet Count 454 Thou/mm3 (140-440); RDW Standard Deviation 57.2 fL (35.1-43.9); Red Blood Count 3.74 Miln/mm3 (4.50-5.90); White Blood Count 13.6 Thou/mm3 (3.8-10.6)
[2025-04-18 06:36] LABS: Base Excess 7 (-3-3); HCO3 35 mEq/L (20-26); Inspired Oxygen, FIO2 60 %; O2 Saturation 93 % (91-98); PCO2 67 mmHg (32.0-48.0); PO2 60 mmHg (83-108); pH, Arterial 7.33 (7.35-7.45)
[2025-04-18 06:44] LABS: Allen Test Performed/OK; Puncture Site Left Radial
--- NOTE | 2025-04-18 08:07 | PC.NURSE ---
CALLED MD WARE TO CLARIFY BP MED ORDER PARAMETERS. GIVEN ORDERS TO HOLD BP MEDS AND RESTART HEPARIN DRIP. NO NEED FOR HEAD CT AT THIS TIME PER
[2025-04-18] MEDS: Heparin/D5w 25K 250 ML Ivpb 25,000 UNIT/250 ML BAG 21.926 UNIT IV (09:06)
[2025-04-18] MEDS: METOPROLOL TARTRATE 25 MG TABLET 100 MG GT ×2 (09:14→21:20)
[2025-04-18] MEDS: ASCORBIC ACID 250 MG TABLET 500 MG GT ×2 (09:14→21:20)
[2025-04-18] MEDS: AMIODARONE HCL 200 MG TABLET GT (09:15)
[2025-04-18] MEDS: LANSOPRAZOLE 30 MG TAB.RAP.DR GT ×2 (09:15→21:20)
[2025-04-18] MEDS: ZINC SULFATE 220 MG CAPSULE GT (09:15)
[2025-04-18] MEDS: INSULIN GLARGINE (Lantus) 5 UNIT/0.05 ML (PER 5 UNITS) 38 UNIT SC (09:19)
[2025-04-18 10:28] LABS: Lactate (Lactic Acid) 2.2 mMol/L (0.4-2.0)
--- NOTE | 2025-04-18 10:29 | PC.SS ---
Addendum entered by Janessa Ramírez 04/18/25 12:08: SS called Delmy Flores from [facility] in [place] [facility] [phone] but was unsuccessful. SS also called yesterday and was unsuccessful. SS has left voicemail. Original Note: SS has met with, pt, mom, dad, and cousin regarding placement at LTAC vs Subacute. SS has informed them pt has been accepted at [facility] in [place] and [facility] in [place]. Parent's choice is [place] [facility] due to being close to home. Parents are aware [facility] and [facility] do not beds available. Patient's information is pending review by insurance physician for LTAC. Parents are aware patient's Medical has share of cost of $1,574.00 for subacute placement and they are agreeable to pay using patient's SSI income.
[2025-04-18 10:44] LABS: Base Excess 8 (-3-3); HCO3 34 mEq/L (20-26); Inspired Oxygen, FIO2 65 %; O2 Saturation 93 % (91-98); PCO2 61 mmHg (32.0-48.0); PO2 60 mmHg (83-108); pH, Arterial 7.36 (7.35-7.45)
[2025-04-18 10:45] LABS: Puncture Site Left Radial
[2025-04-18 10:46] LABS: Allen Test Performed/OK
[2025-04-18] MEDS: cefTRIAXone/D5w 1gm IV premix 1 GM/50 ML BAG IV (12:23)
[2025-04-18] MEDS: BUMETANIDE INJ 0.25 MG/ML VIAL 4 ML 1 MG IVP (12:23)
[2025-04-18 13:25] LABS: Reflex Lactate? Y
[2025-04-18 13:53] LABS: Lactic Acid, 3 HR 1.4 mMol/L (0.4-2.0)
--- NOTE | 2025-04-18 14:54 | ESPR_ITS ---
Documentation for date of: 04/18/25 Subjective Subjective Interval history: Overnight there was apparently a rapid for altered mentation.?Patient seemed more lethargic so ABG was ordered which showed pCO2 of 72. Patient connected to ventilator with FiO2 50. Head CT was ordered. CXR was ordered, which was unchanged from prior. Patient seen and examined at bedside this AM.?Around 8:45 am he was fairly awake and back to his baseline, interactive and mouthing words, therefore head CT was cancelled. No other events throughout the day, ABG improved. Will have order for patient to be on ventilation during the night for BASIA. Labs and vitals were reviewed.?Creatinine mildly increased 1.5 to 1.8. Given 1 dose of Bumex 1 mg IV and will assess response. No further complaints at this time. Patient is accepted to LTAC in [place], pending insurance authorization, which may take 1-2 weeks. Pending insurance physician review. Review of systems otherwise negative except what is mentioned above. Exam Vital Signs Temp Pulse Resp BP Pulse Ox O2 Del Method O2 Flow Rate 98.5 F 86 18 98/74 94 L Mechanical Ventilation 10 04/18/25 12:00 04/18/25 14:20 04/18/25 12:00 04/18/25 12:23 04/18/25 14:20 04/18/25 12:00 04/18/25 12:00 FiO2 60 04/18/25 14:20 Narrative Exam General: AAOx3, morbidly obese, lying in bed HEENT: Tracheostomy, appears dry, PERRLA Cardiovascular: S1, S2, radial pulses +2 bilat, regular rate, possible ejection systolic murmur Pulmonary: Minimal crackles no wheezing GI: Jejunostomy tube in place and present, no active drainage Extremities: Trace edema in lower extremities bilaterally, dorsalis pedis pulses +2 bilaterally Neuro: AAOx3, limited exam as patient is bedbound at this time Objective Labs 04/19/25 05:14 04/19/25 05:14 Labs: Laboratory Results - last 24 hr 04/18/25 04/18/25 04/18/25 04:38 04:40 06:27 WBC 13.6 H RBC 3.74 L Hgb 10.5 L Hct 34.6 L MCV 93 MCH 28.1 MCHC 30.3 L RDW Std Deviation 57.2 H Plt Count 454 H D Neut % (Auto) 71 Lymph % (Auto) 16 [place] % (Auto) 10 Eos % (Auto) 0 Baso % (Auto) 0 Neut # (Auto) 9.7 H Lymph # (Auto) 2.2 [place] # (Auto) 1.4 H Eos # (Auto) 0.1 Baso # (Auto) 0.1 Immature Gran # (Auto) 0.28 H Absolute Nucleated RBC 0.00 Immature Gran % 2 H Nucleated RBC % 0 APTT 24.8 D Puncture Site Right Radial Left Radial ABG pH 7.28 L 7.33 L ABG pCO2 72 H* 67 H ABG pO2 132 H 60 L D ABG HCO3 34 H 35 H ABG O2 Saturation 100 H 93 ABG Base Excess 6 H 7 H FiO2 45 60 Sodium 142 Potassium 4.8 D Chloride 100 Carbon Dioxide 32.8 H Anion Gap 9 BUN 39 H Creatinine 1.8 H Estim Creat Clear Calc 68.1 eGFR 41 L BUN/Creatinine Ratio 22 H Glucose 199 H D Calculated Osmolality 298 H Lactic Acid Calcium 8.3 Corrected Calcium 8.9 Magnesium 2.6 Total Bilirubin 0.3 AST 24 ALT 10 Alkaline Phosphatase 188 H Total Protein 6.1 Albumin 3.3 L Globulin 2.8 Albumin/Globulin Ratio 1.2 04/18/25 04/18/25 04/18/25 10:04 10:30 13:45 WBC RBC Hgb Hct MCV MCH MCHC RDW Std Deviation Plt Count Neut % (Auto) Lymph % (Auto) [place] % (Auto) Eos % (Auto) Baso % (Auto) Neut # (Auto) Lymph # (Auto) [place] # (Auto) Eos # (Auto) Baso # (Auto) Immature Gran # (Auto) Absolute Nucleated RBC Immature Gran % Nucleated RBC % APTT Puncture Site Left Radial ABG pH 7.36 ABG pCO2 61 H ABG pO2 60 L ABG HCO3 34 H ABG O2 Saturation 93 ABG Base Excess 8 H FiO2 65 Sodium Potassium Chloride Carbon Dioxide Anion Gap BUN Creatinine Estim Creat Clear Calc eGFR BUN/Creatinine Ratio Glucose Calculated Osmolality Lactic Acid 2.2 H 1.4 Calcium Corrected Calcium Magnesium Total Bilirubin AST ALT Alkaline Phosphatase Total Protein Albumin Globulin Albumin/Globulin Ratio ABG Interpretation ABG results: 04/18/25 04/18/25 04/18/25 04:40 06:27 10:30 ABG pH 7.28 L 7.33 L 7.36 ABG pCO2 72 H* 67 H 61 H ABG pO2 132 H 60 L D 60 L ABG HCO3 34 H 35 H 34 H ABG O2 Saturation 100 H 93 93 ABG Base Excess 6 H 7 H 8 H Quality Measures Quality Measures VTE therapy Advance care planning discussed with:: patient Assessment & Plan Assessment Current Active Medications: Generic Name Dose Route Start Last Admin Trade Name Freq PRN Reason Stop Dose Admin Amiodarone HCl 200 mg 04/13/25 09:00 04/18/25 09:15 Amiodarone Hcl 200 Mg Tablet GT 05/13/25 08:59 200 mg QDAY KOURTNEY Administration Amlodipine Besylate 10 mg 04/13/25 09:00 04/18/25 09:16 Amlodipine Besylate 5 Mg Tablet GT 05/13/25 08:59 Not Given QDAY KOURTNEY Artificial Tears 0 drop 04/14/25 19:33 Artificial Tears 225 Drop/15 Ml Btl BOTH EYES 05/14/25 19:32 PRN PRN TO KEEP EYES MOIST Ascorbic Acid 500 mg 04/17/25 21:00 04/18/25 09:14 Ascorbic Acid 250 Mg Tablet GT 05/17/25 20:59 500 mg BID KOURTNEY Administration Collagenase 0 gm 04/15/25 21:00 04/16/25 23:45 Collagenase Oint 30 Gm Tube TOP 05/15/25 20:59 1 applicatio HS KOURTNEY Administration Dextrose 25 ml 04/12/25 23:32 Dextrose 50%-Water Inj 50 Ml Syringe IV 05/12/25 23:31 Q15MIN PRN BG 50-70 responsive npo pt Dextrose 50 ml 04/12/25 23:32 Dextrose 50%-Water Inj 50 Ml Syringe IV 05/12/25 23:31 Q15MIN PRN BG <50 OR BG <70 & pt unresponsive Glucagon 1 mg 04/12/25 23:32 Glucagon Inj 1 Mg Vial IM Q15MIN PRN BG <70, and no IV access Heparin Sodium/Dextrose 25,000 unit in 250 mls @ 17.986 mls/hr 04/12/25 23:45 04/18/25 09:06 Heparin In D5w Ivpb IV 04/26/25 23:44 11.13 units/kg/hr .[id number] KOURTNEY 21.926 mls/hr Administration Protocol 9.13 UNITS/KG/HR Metronidazole 500 mg in 100 mls @ 200 mls/hr 04/13/25 13:09 04/18/25 05:21 Flagyl 500 Mg Iv IV 04/20/25 13:08 100 mls/hr Q8HR KOURTNEY Administration Ceftriaxone Sodium/Dextrose 1 gm in 50 mls @ 100 mls/hr 04/18/25 09:48 04/18/25 12:23 Rocephin/D5w 1gm Iv Premix IV 04/25/25 09:47 100 mls/hr QDAY KOURTNEY Administration Insulin Glargine 38 unit 04/13/25 09:00 04/18/25 09:19 Insulin Glargine (Lantus) 5 Unit/0.05 Ml (Per 5 Units) SC 05/13/25 08:59 38 unit QDAY KOURTNEY Administration Insulin Human Lispro 0 unit 04/13/25 00:00 04/18/25 12:31 Insulin Lispro (Admelog) 1 Unit/0.01 Ml Unit SC 05/13/25 00:00 Not Given Q6HR KOURTNEY Protocol Lansoprazole 30 mg 04/14/25 21:00 04/18/25 09:15 Lansoprazole 30 Mg Tab.Rap. GT 05/13/25 08:59 30 mg BID KOURTNEY Administration Metoprolol Tartrate 100 mg 04/17/25 10:15 04/18/25 09:14 Metoprolol Tartrate 25 Mg Tablet GT 05/17/25 10:14 100 mg BID KOURTNEY Administration Ondansetron HCl 4 mg 04/12/25 23:27 04/17/25 05:28 Ondansetron Inj 2 Mg/Ml Inj 2 Ml IVP 05/12/25 23:26 4 mg Q6H PRN Administration NAUSEA OR VOMITING Protocol Sodium Hypochlorite 473 ml 04/15/25 21:00 04/17/25 21:10 Sod Hypochlorite 1/4 Str 473 Ml Btl IRRIG 05/15/25 20:59 Not Given HS KOURTNEY Zinc Sulfate 220 mg 04/18/25 09:00 04/18/25 09:15 Zinc Sulfate 220 Mg Capsule GT 05/18/25 08:59 220 mg QDAY KOURTNEY Administration Plan Assessment 64-year-old male with past medical history of DM2, hypertension, A-fib, and Jehova's witness was admitted to the ICU on 02/27/2025 for shock and acute hypoxic respiratory failure. He is s/p laparoscopic J-tube placement from [facility]. #Decubitus ulcer #Chronic back pain Not requiring surgical intervention at this time Unstageable sacral ulcer Debridement bedside on 04/17/2025 Plan: - Patient had debridement yesterday - Monitor for signs of infection, bleeding - Wound care following - Anderson 5 as needed - Skin barrier creams PRN #Jejunostomy tube #Abdominal abscess Patient report said that there was an intra-abdominal abscess that have could have been from a perforated ulcer in the past See also note reviewed, mentions that patient likely had a marginal ulcer, but also was not seen on EGD without, currently patient has no abdominal tenderness and is totally asymptomatic. No current drain at this time Patient is status post laparoscopic J-tube placement and is currently on feeds Patient will continue to have this tube and will likely go to a long-term care facility with this until patient can swallow safely Plan: ? Continue with cefepime IV and Flagyl IV at this time ? Resumed tube feeds following debridement ? Monitor vitals closely #Acute kidney injury DDx: Prerenal versus ATN versus obstructive Creatinine 1.6 today Patient looks clinically hypovolemic at this time Patient's sodium is 143, it was 140 this morning. This happened after 500 cc NS, will increase water flushes rather than bolus b/c of concern for hypernatremia Plan: ? Continue with water flushes, 60 cc/h ? Avoid nephrotoxic agents ? Renally dose medicines #Right diastolic CHF Patient appears clinically dry at this point, will hold on diuresis at this time Plan: - Continue strict daily body weight - Given Bumex 1 mg IV x1 today - Daily weights - Strict I&O #Acute on Chronic Hypoxic Hypercapnic Respiratory Failure #Aspiration Pneumonia #Obesity hypoventilation syndrome and obstructive sleep apnea #Dysphagia #Tracheostomy Patient was intubated and ventilated due to hypoxic respiratory failure, was unable to be extubated. Tracheostomy was placed. PEG tube was able to be placed, patient transferred to [facility] for laparoscopic J-tube placement, is now being transferred back after procedure successfully completed Plan: - Dietary consulted, recommendations appreciated - Respiratory therapy consulted - Blow-by during the day, mechanical ventilation at night as needed ? Continue with cefepime and Flagyl IV at this time #Hx of A-fib [id number] score of 3 points indicating 3.2% risk of stroke per year HAS-BLED: 0 Currently rhythm controlled Plan: - Heparin transitioning to Xarelto - Amiodarone 200 mg QDAY - Metoprolol succinate 100 twice daily - Keep potassium and magnesium above 4 and 2 respectively - Telemetry #Right internal jugular venous thrombosis #Right arm swelling Continuing free water flushes, patient has gone multiple days of heparin drip since 04/01 Plan: ? Transitioned heparin drip (04/01-04/19) ? Will start Xarelto 20 mg qday #Morbid obesity #DM2 A1C 7.6 on 03/05/2025 Patient has a BMI of 79.5->68.7 Plan: - ISS scale 2 - Hypoglycemia protocol ordered - 38 units of Lantus #Health Maintenance Disposition: Telemetry DVT prophylaxis: Heparin drip, will be held at midnight GI prophylaxis: Protonix Diet: 2Cal Tube Feeds with 60 cc/hour water flush CODE STATUS: Full code Patient plan of care was discussed with the attending physician, Dr. Alicia. Evi Betts, PGY-2 Attending Provider Attestation/Addendum I attest that I was physically present for the evaluation, physical examination, lab and imaging review of the patient with the residents. I discussed the case with the residents and agree with the findings and plans of care as documented above. Overnight, patient had a rapid response called due to decreased oxygen saturation to mid 80s. Patient was continued on blow-by overnight. He was lethargic and hard to arouse. Patient was suctioned and bagged momentarily following which his saturation improved. Patient was later awake and was able to answer but had a tendency to go back to sleep right away. At bedside this morning, patient continued to be sleepy earlier but was alert and awake later on. Able to answer questions and follow commands appropriately. ABG was done, showed PaO2 of 60, improving pCO2 from 72-67. We will continue him on mechanical ventilator, FiO2 65. We will obtain follow-up ABG and adjust his FiO2. Chest x-ray was obtained continues to show pneumonia but no significant changes compared to previous one. Rest of the vitals are within normal limits. Lab results show WBC of 13.6, KENIA with BUN/creatinine of 39/1.8. KENIA appears prerenal but hard to assess if it is from volume overload versus volume depletion. We will have a trial of diuresis with Bumex 1 mg IV and reevaluate the renal function to determine the fluid status. Continues to be on antibiotics for denies any abdominal pain, or other GI symptoms. Wound care following for decubitus ulcer. Continues to be on tube feeds with the jejunostomy tube. Continues to be on Xarelto, amiodarone and metoprolol for A- fib. Insulin regimen for diabetes. Discharge planning with case management to LTAC/subacute. Cortez Alicia MD
[2025-04-18 16:23] LABS: Partial Thromboplastin Time 38.1 Seconds (22.0-36.0)
--- NOTE | 2025-04-18 16:50 | PC.NURSE ---
spoke to pharmacist chloé about heparin drip and she recommneded communicating with the provider to choose if patient needs heparin bolus as ptt was 38.
--- NOTE | 2025-04-18 16:58 | PC.NURSE ---
communicated with dr. ferreira of pt ptt being 38.1 and notifying of recommendations by pharmacist. md acknowledged. stated to not give bolus and go up by protocol and stat ptt after 6hrs. pharmacist chloé notified of decision as well
[2025-04-18] MEDS: Heparin/D5w 25K 250 ML Ivpb 25,000 UNIT/250 ML BAG 25.866 UNIT IV (21:19)
[2025-04-18] MEDS: SOD HYPOCHLORITE 1/4 STR 473 ML BTL IRRIG (21:21)
[2025-04-19] VITALS (14 sets, daily range): BP systolic 96–128; BP diastolic 61–95; PULSE 73–97; RESP 12–118; TEMP 36.1–36.4; O2SAT 86–97; BMI 68.5
[2025-04-19] LABS: Partial Thromboplastin Time 95.6 Seconds (22.0-36.0)
[2025-04-19 05:29] LABS: Basophils # (Auto) 0.1 Thou/mm3 (0.0-0.2); Basophils % (Auto) 1 % (0-2.5); Eosinophils # (Auto) 0.2 Thou/mm3 (0.0-0.5); Eosinophils % (Auto) 2 % (0-10); Hematocrit 28.7 % (41.0-53.0); Hemoglobin 9.2 g/dL (13.5-16.0); Immature Granulocytes Auto 0.15 Thou/mm3 (0.00-0.00); Lymphocytes # (Auto) 2.3 Thou/mm3 (1.0-4.8); Lymphocytes % (Auto) 21 % (10-50); Mean Corpuscular HGB Conc 32.1 g/dl (31.0-37.0); Mean Corpuscular Hemoglobin 28.2 pg (25.0-35.0); Mean Corpuscular Volume 88 fL (80-100); Monocytes # (Auto) 1.3 Thou/mm3 (0.0-0.8); Monocytes % (Auto) 12 % (0-12); Neutrophils # (Auto) 7.0 Thou/mm3 (1.8-7.7); Neutrophils % (Auto) 64 % (37-80); Nucleated Red Blood Cell # 0.00 Thou/mm3 (0.00-0.00); Nucleated Red Blood Cell % 0 /100 WBC (0); Platelet Count 417 Thou/mm3 (140-440); RDW Standard Deviation 55.0 fL (35.1-43.9); Red Blood Count 3.26 Miln/mm3 (4.50-5.90); White Blood Count 11.0 Thou/mm3 (3.8-10.6)
[2025-04-19] MEDS: metroNIDAZOLE/NS 500 MG IVPB 500 MG/100 ML BAG 100 MG IV ×3 (05:55→21:57)
[2025-04-19 06:14] LABS: Alanine Aminotransferase 8 U/L (10-49); Albumin, Serum 2.9 gm/dL (3.4-4.8); Albumin/Globulin Ratio 1.2 (1.2-2.2); Alkaline Phosphatase 152 U/L (46-116); Anion Gap 10 (7-16); Aspartate Amino Transferase 20 U/L (0-34); BUN/Creatinine Ratio 22 Ratio (12-20); Bilirubin,Total 0.3 mg/dL (0.3-1.2); Blood Urea Nitrogen 50 mg/dL (9-23); Calcium 8.0 mg/dL (8.3-10.6); Calcium (Corrected) 8.9 mg/dL (8.5-10.1); Carbon Dioxide 32.1 mMol/L (20.0-31.0); Chloride 99 mMol/L (98-107); Creatinine (Component) 2.3 mg/dL (0.6-1.3); Estimated Creatinine Clearance 53.2 mL/min (>60); Globulin 2.5 gm/dL (2.3-3.5); Glucose 120 mg/dL (74-106); Magnesium 2.4 mg/dL (1.6-2.6); Osmolality,Calculated 295 (275-295); Potassium 4.3 mMol/L (3.4-5.1); Sodium 141 mMol/L (136-145); Total Protein 5.4 gm/dL (5.7-8.2); eGFR 31 See Note
[2025-04-19 06:18] LABS: Partial Thromboplastin Time 75.3 Seconds (22.0-36.0)
[2025-04-19 09:02] LABS: Base Excess 8 (-3-3); HCO3 33 mEq/L (20-26); Inspired Oxygen, FIO2 45 %; O2 Saturation 96 % (91-98); PCO2 45 mmHg (32.0-48.0); PO2 66 mmHg (83-108); pH, Arterial 7.47 (7.35-7.45)
[2025-04-19 09:05] LABS: Allen Test Performed/OK; Puncture Site Left Radial
--- NOTE | 2025-04-19 09:34 | PC.SS ---
Addendum entered by Janessa Ramírez 04/19/25 14:50: Nephrology Dr. Gannon is consulting. Original Note: Follow up note: SS spoke to Sharon from [facility] who explained they are unable to accommodate due to not having bariatric equipment and staff. [facility], phone# [phone] no answer. SS left message. [facility] in [place], and [facility], phone# [phone] ([place]) has accepted on [facility]. SS has spoken to Dagmar from admissions and who states they can accept pt and accommodate bariatic DME. [facility] can accept. [facility], phone# [phone] [facility] in [facility], phone# [phone] can accept SS spoke to RONNY Lee from [facility]'s health insurance who is aware parent's choice is [facility]. SS was informed by RONNY Lee from [facility], patient's health insurance who explained director medical economics reviewed patient's information and he is not approving LTAC placement and subacute is appropriate. LTAC placement has been denied. Peer to peer schedule for Tuesday. RONNY Casey explained they will attempt to reach out to the wireless manager at [facility] (Subacute) for placement.
[2025-04-19] MEDS: cefTRIAXone/D5w 1gm IV premix 1 GM/50 ML BAG IV (10:57)
[2025-04-19] MEDS: METOPROLOL TARTRATE 25 MG TABLET 100 MG GT ×2 (11:41→20:27)
[2025-04-19] MEDS: ZINC SULFATE 220 MG CAPSULE GT (11:42)
[2025-04-19] MEDS: ASCORBIC ACID 250 MG TABLET 500 MG GT ×2 (11:42→20:28)
[2025-04-19] MEDS: AMIODARONE HCL 200 MG TABLET GT (11:42)
[2025-04-19] MEDS: LANSOPRAZOLE 30 MG TAB.RAP.DR GT ×2 (11:43→20:29)
--- NOTE | 2025-04-19 11:43 | ESPR_ITS ---
Documentation for date of: 04/19/25 Subjective Subjective Interval history: Patient seen and examined at bedside, patient is able to mouth words, communicates using writing board, requests to be repositioned. Worsening of renal function noted, was given 500 cc bolus of LR, repeat renal panel shows worsening, consulted nephrology. Patient otherwise denies any pain, continues to have wound care. Exam Vital Signs Temp Pulse Resp BP Pulse Ox O2 Del Method O2 Flow Rate 97.0 F 83 12 96/61 93 L Blow-by 8 04/19/25 08:00 04/19/25 08:00 04/19/25 08:00 04/19/25 08:00 04/19/25 08:00 04/19/25 08:00 04/19/25 08:00 FiO2 40 04/19/25 08:00 Narrative Exam General: AAOx3, morbidly obese, lying in bed HEENT: Tracheostomy, appears dry, PERRLA Cardiovascular: S1, S2, radial pulses +2 bilat, regular rate, possible ejection systolic murmur Pulmonary: Minimal crackles no wheezing GI: Jejunostomy tube in place and present, no active drainage Extremities: Trace edema in lower extremities bilaterally, dorsalis pedis pulses +2 bilaterally Neuro: AAOx3, limited exam as patient is bedbound at this time Objective Labs 04/20/25 05:15 04/20/25 05:15 Labs: Laboratory Results - last 24 hr 04/18/25 04/18/25 04/18/25 13:45 15:52 23:17 WBC RBC Hgb Hct MCV MCH MCHC RDW Std Deviation Plt Count Neut % (Auto) Lymph % (Auto) [place] % (Auto) Eos % (Auto) Baso % (Auto) Neut # (Auto) Lymph # (Auto) [place] # (Auto) Eos # (Auto) Baso # (Auto) Immature Gran # (Auto) Absolute Nucleated RBC Immature Gran % Nucleated RBC % APTT 38.1 H D 95.6 H D Puncture Site ABG pH ABG pCO2 ABG pO2 ABG HCO3 ABG O2 Saturation ABG Base Excess FiO2 Sodium Potassium Chloride Carbon Dioxide Anion Gap BUN Creatinine Estim Creat Clear Calc eGFR BUN/Creatinine Ratio Glucose Calculated Osmolality Lactic Acid 1.4 Calcium Corrected Calcium Magnesium Total Bilirubin AST ALT Alkaline Phosphatase Total Protein Albumin Globulin Albumin/Globulin Ratio 04/19/25 04/19/25 05:14 08:53 WBC 11.0 H RBC 3.26 L Hgb 9.2 L Hct 28.7 L MCV 88 MCH 28.2 MCHC 32.1 RDW Std Deviation 55.0 H Plt Count 417 D Neut % (Auto) 64 Lymph % (Auto) 21 [place] % (Auto) 12 Eos % (Auto) 2 Baso % (Auto) 1 Neut # (Auto) 7.0 Lymph # (Auto) 2.3 [place] # (Auto) 1.3 H Eos # (Auto) 0.2 Baso # (Auto) 0.1 Immature Gran # (Auto) 0.15 H Absolute Nucleated RBC 0.00 Immature Gran % 1 H Nucleated RBC % 0 APTT 75.3 H D Puncture Site Left Radial ABG pH 7.47 H D ABG pCO2 45 D ABG pO2 66 L ABG HCO3 33 H ABG O2 Saturation 96 ABG Base Excess 8 H FiO2 45 Sodium 141 Potassium 4.3 D Chloride 99 Carbon Dioxide 32.1 H Anion Gap 10 BUN 50 H Creatinine 2.3 H D Estim Creat Clear Calc 53.2 L eGFR 31 L BUN/Creatinine Ratio 22 H Glucose 120 H D Calculated Osmolality 295 Lactic Acid Calcium 8.0 L Corrected Calcium 8.9 Magnesium 2.4 Total Bilirubin 0.3 AST 20 ALT 8 L Alkaline Phosphatase 152 H D Total Protein 5.4 L Albumin 2.9 L Globulin 2.5 Albumin/Globulin Ratio 1.2 ABG Interpretation ABG results: 04/18/25 04/18/25 04/18/25 04:40 06:27 10:30 ABG pH 7.28 L 7.33 L 7.36 ABG pCO2 72 H* 67 H 61 H ABG pO2 132 H 60 L D 60 L ABG HCO3 34 H 35 H 34 H ABG O2 Saturation 100 H 93 93 ABG Base Excess 6 H 7 H 8 H 04/19/25 08:53 ABG pH 7.47 H D ABG pCO2 45 D ABG pO2 66 L ABG HCO3 33 H ABG O2 Saturation 96 ABG Base Excess 8 H Quality Measures Quality Measures VTE therapy Advance care planning discussed with:: patient Assessment & Plan Assessment Current Active Medications: Generic Name Dose Route Start Last Admin Trade Name Freq PRN Reason Stop Dose Admin Amiodarone HCl 200 mg 04/13/25 09:00 04/18/25 09:15 Amiodarone Hcl 200 Mg Tablet GT 05/13/25 08:59 200 mg QDAY KOURTNEY Administration Amlodipine Besylate 10 mg 04/13/25 09:00 04/18/25 09:16 Amlodipine Besylate 5 Mg Tablet GT 05/13/25 08:59 Not Given QDAY KOURTNEY Artificial Tears 0 drop 04/14/25 19:33 Artificial Tears 225 Drop/15 Ml Btl BOTH EYES 05/14/25 19:32 PRN PRN TO KEEP EYES MOIST Ascorbic Acid 500 mg 04/17/25 21:00 04/18/25 21:20 Ascorbic Acid 250 Mg Tablet GT 05/17/25 20:59 500 mg BID KOURTNEY Administration Collagenase 0 gm 04/15/25 21:00 04/16/25 23:45 Collagenase Oint 30 Gm Tube TOP 05/15/25 20:59 1 applicatio HS KOURTNEY Administration Dextrose 25 ml 04/12/25 23:32 Dextrose 50%-Water Inj 50 Ml Syringe IV 05/12/25 23:31 Q15MIN PRN BG 50-70 responsive npo pt Dextrose 50 ml 04/12/25 23:32 Dextrose 50%-Water Inj 50 Ml Syringe IV 05/12/25 23:31 Q15MIN PRN BG <50 OR BG <70 & pt unresponsive Glucagon 1 mg 04/12/25 23:32 Glucagon Inj 1 Mg Vial IM Q15MIN PRN BG <70, and no IV access Metronidazole 500 mg in 100 mls @ 200 mls/hr 04/13/25 13:09 04/19/25 05:55 Flagyl 500 Mg Iv IV 04/20/25 13:08 100 mls/hr Q8HR KOURTNEY Administration Ceftriaxone Sodium/Dextrose 1 gm in 50 mls @ 100 mls/hr 04/18/25 09:48 04/19/25 10:57 Rocephin/D5w 1gm Iv Premix IV 04/25/25 09:47 100 mls/hr QDAY KOURTNEY Administration Insulin Glargine 38 unit 04/13/25 09:00 04/18/25 09:19 Insulin Glargine (Lantus) 5 Unit/0.05 Ml (Per 5 Units) SC 05/13/25 08:59 38 unit QDAY KOURTNEY Administration Insulin Human Lispro 0 unit 04/13/25 00:00 04/19/25 05:20 Insulin Lispro (Admelog) 1 Unit/0.01 Ml Unit SC 05/13/25 00:00 Not Given Q6HR KOURTNEY Protocol Lansoprazole 30 mg 04/14/25 21:00 04/18/25 21:20 Lansoprazole 30 Mg Tab GT 05/13/25 08:59 30 mg BID KOURTNEY Administration Metoprolol Tartrate 100 mg 04/17/25 10:15 04/18/25 21:20 Metoprolol Tartrate 25 Mg Tablet GT 05/17/25 10:14 100 mg BID KOURTNEY Administration Ondansetron HCl 4 mg 04/12/25 23:27 04/17/25 05:28 Ondansetron Inj 2 Mg/Ml Inj 2 Ml IVP 05/12/25 23:26 4 mg Q6H PRN Administration NAUSEA OR VOMITING Protocol Rivaroxaban 20 mg 04/19/25 09:00 Rivaroxaban 10 Mg Tablet PO 05/10/25 08:59 QDAY KOURTNEY Sodium Hypochlorite 473 ml 04/15/25 21:00 04/18/25 21:21 Sod Hypochlorite 1/4 Str 473 Ml Btl IRRIG 05/15/25 20:59 1 applicatio HS KOURTNEY Administration Zinc Sulfate 220 mg 04/18/25 09:00 04/18/25 09:15 Zinc Sulfate 220 Mg Capsule GT 05/18/25 08:59 220 mg QDAY KOURTNEY Administration Plan Assessment 64-year-old male with past medical history of DM2, hypertension, A-fib, and Jehova's witness was admitted to the ICU on 02/27/2025 for shock and acute hypoxic respiratory failure. He is s/p laparoscopic J-tube placement from [facility]. #Acute kidney injury DDx: Prerenal versus ATN versus obstructive Creatinine 1.6 today Patient looks clinically hypovolemic at this time 04/18-patient did receive x 1 dose of Bumex yesterday Patient's sodium is 143, it was 140 this morning. This happened after 500 cc NS, will increase water flushes rather than bolus b/c of concern for hypernatremia . Plan: ? Was given 500 cc bolus of LR, repeat renal panel shows worsening, consulted nephrology. ? Continue with water flushes, 60 cc/h ? Avoid nephrotoxic agents ? Renally dose medicines #Decubitus ulcer #Chronic back pain Not requiring surgical intervention at this time Unstageable sacral ulcer Debridement bedside on 04/17/2025 Plan: - Patient had debridement yesterday - Monitor for signs of infection, bleeding - Wound care following - [place] 5 as needed - Skin barrier creams PRN #Jejunostomy tube #Abdominal abscess Patient report said that there was an intra-abdominal abscess that have could have been from a perforated ulcer in the past See also note reviewed, mentions that patient likely had a marginal ulcer, but also was not seen on EGD without, currently patient has no abdominal tenderness and is totally asymptomatic. No current drain at this time Patient is status post laparoscopic J-tube placement and is currently on feeds Patient will continue to have this tube and will likely go to a long-term care facility with this until patient can swallow safely Plan: ? Continue with cefepime IV and Flagyl IV at this time, last dose Flagyl today. ? Resumed tube feeds following debridement ? Monitor vitals closely #Right diastolic CHF Patient appears clinically dry at this point, will hold on diuresis at this time Plan: - Continue strict daily body weight - Daily weights - Strict I&O #Acute on Chronic Hypoxic Hypercapnic Respiratory Failure #Aspiration Pneumonia #Obesity hypoventilation syndrome and obstructive sleep apnea #Dysphagia #Tracheostomy Patient was intubated and ventilated due to hypoxic respiratory failure, was unable to be extubated. Tracheostomy was placed. PEG tube was able to be placed, patient transferred to [facility] for laparoscopic J-tube placement, is now being transferred back after procedure successfully completed Plan: - Dietary consulted, recommendations appreciated - Respiratory therapy consulted - Blow-by during the day, mechanical ventilation at night as needed ? Continue with cefepime and Flagyl IV at this time #Hx of A-fib [id number] score of 3 points indicating 3.2% risk of stroke per year HAS-BLED: 0 Currently rhythm controlled Plan: - Heparin transitioning to Xarelto - Amiodarone 200 mg QDAY - Metoprolol succinate 100 twice daily - Keep potassium and magnesium above 4 and 2 respectively - Telemetry #Right internal jugular venous thrombosis #Right arm swelling Continuing free water flushes, patient has gone multiple days of heparin drip since 04/01 Plan: ? Transitioned heparin drip (04/01-04/19) ? Will start Xarelto 20 mg qday #Morbid obesity #DM2 A1C 7.6 on 03/05/2025 Patient has a BMI of 79.5->68.7 Plan: - ISS scale 2 - Hypoglycemia protocol ordered - 38 units of Lantus #Health Maintenance Disposition: Telemetry DVT prophylaxis: Heparin drip, will be held at midnight GI prophylaxis: Protonix Diet: 2Cal Tube Feeds with 60 cc/hour water flush CODE STATUS: Full code Patient plan of care was discussed with the attending physician, Dr. Alicia. Elizabeth Lamas PGY1 Attending Provider Attestation/Addendum I attest that I was physically present for the evaluation, physical examination, lab and imaging review of the patient with the residents. I discussed the case with the residents and agree with the findings and plans of care as documented above. At bedside today, patient states she is feeling well and denies any new complaints in the morning. Was on mechanical ventilator overnight and blow-by during the day. Later in the evening, around 530, rapid response was called due to hypoxia. Oxygen saturation improved after suctioning. Patient was placed back to mechanical ventilator overnight. Noted to have worsening kidney function, patient had received 1 mg of IV Bumex yesterday, we will do a 500 cc bolus fluid challenge and follow-up with renal panel to see if there is any improvement. We will also obtain nephrology consult. Wound care following for decubitus ulcer. Continues to be on tube feeds with 60 cc/h of water flushes. Continues to be on amiodarone, metoprolol and Xarelto for A-fib. Cortez Alicia MD
[2025-04-19] MEDS: RIVAROXABAN 10 MG TABLET 20 MG PO (11:46)
[2025-04-19] MEDS: INSULIN GLARGINE (Lantus) 5 UNIT/0.05 ML (PER 5 UNITS) 38 UNIT SC (11:49)
[2025-04-19] MEDS: RINGERS LACTATED 1000 ML 500 ML 999 ML IV (11:59)
[2025-04-19 13:34] LABS: Albumin, Serum 3.2 gm/dL (3.4-4.8); Anion Gap 8 (7-16); BUN/Creatinine Ratio 20 Ratio (12-20); Blood Urea Nitrogen 49 mg/dL (9-23); Calcium 8.0 mg/dL (8.3-10.6); Calcium (Corrected) 8.6 mg/dL (8.5-10.1); Carbon Dioxide 32.7 mMol/L (20.0-31.0); Chloride 98 mMol/L (98-107); Creatinine (Component) 2.4 mg/dL (0.6-1.3); Estimated Creatinine Clearance 51.0 mL/min (>60); Glucose 139 mg/dL (74-106); Osmolality,Calculated 292 (275-295); Phosphorous 2.5 mg/dL (2.4-5.1); Potassium 4.4 mMol/L (3.4-5.1); Sodium 139 mMol/L (136-145); eGFR 29 See Note
--- NOTE | 2025-04-19 17:39 | PD.RESEVENT ---
Documentation for date of: 04/19/25 Event Note Event Note: Rapid response called for the patient at around 5:30 PM for hypoxia, SpO2 in low 80s. Patient was being repositioned, deep suctioning done by nursing, SpO2 improved to 90s. Case discussed with respiratory therapist at bedside, since it is already new at that time when at bedtime ventilation would start, decision was made to start patient on mechanical ventilation. Patient is requiring mechanical ventilation nightly, will continue. Patient is stable, will continue to monitor. Case discussed with Attending Dr. Alicia. Elizabeth Lamas PGY1 Disclaimer: This note was dictated by speech recognition. Minor errors in drafter directional survey may be present due to voice recognition software.
[2025-04-19] MEDS: INSULIN LISPRO (AdmeLOG) 1 UNIT/0.01 ML UNIT SC (17:48)
[2025-04-19] MEDS: SOD HYPOCHLORITE 1/4 STR 473 ML BTL IRRIG (22:00)
[2025-04-20] VITALS (15 sets, daily range): BP systolic 100–127; BP diastolic 67–91; PULSE 64–93; RESP 15–31; TEMP 36.1–36.3; O2SAT 93–100
[2025-04-20] MEDS: metroNIDAZOLE/NS 500 MG IVPB 500 MG/100 ML BAG 100 MG IV (05:21)
[2025-04-20 06:00] LABS: Basophils # (Auto) 0.1 Thou/mm3 (0.0-0.2); Basophils % (Auto) 1 % (0-2.5); Eosinophils # (Auto) 0.2 Thou/mm3 (0.0-0.5); Eosinophils % (Auto) 2 % (0-10); Hematocrit 30.2 % (41.0-53.0); Hemoglobin 9.5 g/dL (13.5-16.0); Immature Granulocytes Auto 0.13 Thou/mm3 (0.00-0.00); Lymphocytes # (Auto) 2.1 Thou/mm3 (1.0-4.8); Lymphocytes % (Auto) 21 % (10-50); Mean Corpuscular HGB Conc 31.5 g/dl (31.0-37.0); Mean Corpuscular Hemoglobin 28.4 pg (25.0-35.0); Mean Corpuscular Volume 90 fL (80-100); Monocytes # (Auto) 1.3 Thou/mm3 (0.0-0.8); Monocytes % (Auto) 13 % (0-12); Neutrophils # (Auto) 6.1 Thou/mm3 (1.8-7.7); Neutrophils % (Auto) 61 % (37-80); Nucleated Red Blood Cell # 0.00 Thou/mm3 (0.00-0.00); Nucleated Red Blood Cell % 0 /100 WBC (0); Platelet Count 427 Thou/mm3 (140-440); RDW Standard Deviation 56.7 fL (35.1-43.9); Red Blood Count 3.35 Miln/mm3 (4.50-5.90); White Blood Count 9.9 Thou/mm3 (3.8-10.6)
[2025-04-20 06:40] LABS: Alanine Aminotransferase 7 U/L (10-49); Albumin, Serum 3.1 gm/dL (3.4-4.8); Albumin/Globulin Ratio 1.3 (1.2-2.2); Alkaline Phosphatase 158 U/L (46-116); Anion Gap 9 (7-16); BUN/Creatinine Ratio 17 Ratio (12-20); Bilirubin,Total 0.3 mg/dL (0.3-1.2); Blood Urea Nitrogen 49 mg/dL (9-23); Calcium 8.7 mg/dL (8.3-10.6); Calcium (Corrected) 9.4 mg/dL (8.5-10.1); Carbon Dioxide 28.2 mMol/L (20.0-31.0); Chloride 96 mMol/L (98-107); Creatinine (Component) 2.9 mg/dL (0.6-1.3); Estimated Creatinine Clearance 42.2 mL/min (>60); Globulin 2.4 gm/dL (2.3-3.5); Glucose 125 mg/dL (74-106); Magnesium 2.6 mg/dL (1.6-2.6); Osmolality,Calculated 280 (275-295); Potassium 4.4 mMol/L (3.4-5.1); Sodium 133 mMol/L (136-145); Total Protein 5.5 gm/dL (5.7-8.2); eGFR 23 See Note
--- NOTE | 2025-04-20 07:14 | PD.RESCONSUL ---
[facility] Data of Consult Consult date: 04/20/25 Requesting Physician: Cortez Alicia MD Admitting Provider: Tres Magana MD Attending Provider: Cortez Alicia MD Primary Care Provider: Physician No Primary/Family Consult Narrative Reason for consult: KENIA, fluid overload History of present illness: Well-known to me from this admission. Day #65 of hospital stay. Mr. Ortega is a 64-year-old male with a past medical history of type 2 diabetes mellitus, history of ATN, A-fib, hypertension, severe right-sided heart failure, HFpEF, severe BASIA, status post tracheostomy and jejunostomy, patient was previously admitted here for hypoxic respiratory failure requiring mechanical ventilation, was later transferred out to [facility] for jejunostomy tube placement, complicated by abdominal abscess, patient is now transferred back to [facility] for further management. The patient is noted to have pneumonia and acute hypoxic respiratory failure, requiring mechanical ventilation, nephrology was consulted as patient's renal function continues to worsen. Patient had previously required hemodialysis for ATN, but is a poor dialysis candidate outpatient. Patient noted to have significant fluid overload. Team gave 1 dose of Bumex with mild worsening of renal function. 500 cc bolus was given. Renal consultation requested for worsening renal failure in the setting of fluid overload. Medications/labs reviewed. Past medical history: As noted above Social history: Denies smoking and drinking 04/20/2025 patient currently seen in telemetry. On vent. S/p trach, J-tube. Blood pressure 124/83, heart rate 88. Hemoglobin 9.5, platelets 427. Sodium 133, potassium 4.4, bicarbonate 28, BUN 49, creatinine 2.9, calcium 9.4, phosphorus 2.5, magnesium 2.6, LFTs normal, albumin 3.1 x-ray showed, diffuse right lung pneumonia and a possible right pleural fluid. cc:: cc: Cortez Alicia MD Review of Systems Review of Systems Systems Reviewed: All systems reviewed, normal except as documented Narrative Review of Systems: Patient currently on trach. Able to communicate. General: Denies fevers or chills HEENT: Denies congestion or sore throat Heart: Denies chest pain or palpitations Lungs: Endorses shortness of breath Abdomen: Denies diarrhea, nausea, vomiting, constipation, bright red blood per rectum or melena, reports abdominal discomfort Genitourinary: Denies frequency, urgency, dysuria, or hematuria, reports voiding urine Musculoskeletal: Denies joint pain, denies muscular pain Neurology: Denies any numbness, tingling Review of systems otherwise negative except what is mentioned above. Past Medical History Past Medical History NEUROLOGIC: Negative Seizures CARDIAC: Positive Hypertension; Negative Congestive Heart Failure RESPIRATORY: Negative Chronic Obstructive Pulmonary Disease (COPD) GENITOURINARY: Negative Renal Disease ENDOCRINE: Positive Diabetes Mellitus Type 2; Negative Diabetes Mellitus Type 1 Social History SMOKING STATUS: Never smoker Exam Vital Signs Temp Pulse Resp BP Pulse Ox O2 Del Method O2 Flow Rate 97.3 F 93 20 127/82 95 Mechanical Ventilation 10 04/20/25 04:00 04/20/25 07:12 04/20/25 07:12 04/20/25 04:00 04/20/25 07:12 04/20/25 04:00 04/20/25 07:12 FiO2 45 04/20/25 07:12 Narrative Exam General: AAOx3, morbidly obese, lying in bed HEENT: Tracheostomy, appears dry, PERRLA Cardiovascular: S1, S2, radial pulses +2 bilat, regular rate, possible ejection systolic murmur Pulmonary: Minimal crackles no wheezing GI: Jejunostomy tube in place and present, no active drainage Extremities: Significant edema in all extremities bilaterally, dorsalis pedis pulses +2 bilaterally Neuro: AAOx3, limited exam as patient is bedbound at this time Results Labs 04/20/25 05:15 04/20/25 05:15 Labs: Short CBC 04/20/25 Range/Units 05:15 WBC 9.9 (3.8-10.6) Thou/mm3 Hgb 9.5 L (13.5-16.0) g/dL Hct 30.2 L (41.0-53.0) % Plt Count 427 (140-440) Thou/mm3 BMP 04/19/25 04/20/25 13:00 05:15 Sodium 139 133 L Potassium 4.4 4.4 Chloride 98 96 L Carbon Dioxide 32.7 H 28.2 BUN 49 H 49 H Creatinine 2.4 H 2.9 H D Glucose 139 H 125 H Calcium 8.0 L 8.7 Liver Function 04/19/25 04/20/25 Range/Units 13:00 05:15 Total Bilirubin 0.3 (0.3-1.2) mg/dL ALT 7 L (10-49) U/L Alkaline Phosphatase 158 H (46-116) U/L Albumin 3.2 L 3.1 L (3.4-4.8) gm/dL ABG Interpretation ABG results: 04/18/25 04/18/25 04/18/25 04:40 06:27 10:30 ABG pH 7.28 L 7.33 L 7.36 ABG pCO2 72 H* 67 H 61 H ABG pO2 132 H 60 L D 60 L ABG HCO3 34 H 35 H 34 H ABG O2 Saturation 100 H 93 93 ABG Base Excess 6 H 7 H 8 H 04/19/25 08:53 ABG pH 7.47 H D ABG pCO2 45 D ABG pO2 66 L ABG HCO3 33 H ABG O2 Saturation 96 ABG Base Excess 8 H Quality Measures Quality Measures VTE therapy Advance care planning discussed with:: patient Medications Home Medications and Allergies Home Medications ?Medication ?Instructions ?Recorded ?Confirmed ?Type amlodipine 10 mg tablet 10 mg PO 1XD 02/27/25 04/13/25 History gabapentin 600 mg tablet 600 mg PO 3XD 02/27/25 04/13/25 History glipizide 10 mg tablet 10 mg PO 1XD 02/27/25 04/13/25 History losartan 25 mg tablet 25 mg PO 1XD 02/27/25 04/13/25 History metformin 1,000 mg tablet 1,000 mg PO 2XD 02/27/25 04/13/25 History metoprolol succinate 100 mg 100 mg PO 2XD 02/27/25 04/13/25 History tablet,extended release 24 hr tramadol 50 mg tablet 50 mg PO 3XD 02/27/25 04/13/25 History Allergies Allergy/AdvReac Type Severity Reaction Status Date / Time No Known Allergies Allergy Verified 02/27/25 06:45 Visit Medications Amiodarone HCl (Amiodarone Hcl 200 Mg Tablet) 200 mg GT QDAY KOURTNEY Stop: 05/13/25 08:59 Last Admin: 04/19/25 11:42 Dose: 200 mg Amlodipine Besylate (Amlodipine Besylate 5 Mg Tablet) 10 mg GT QDAY KOURTNEY Stop: 05/13/25 08:59 Last Admin: 04/19/25 11:43 Dose: 10 mg Artificial Tears (Artificial Tears 225 Drop/15 Ml Btl) 0 drop BOTH EYES PRN PRN PRN Reason: TO KEEP EYES MOIST Stop: 05/14/25 19:32 Ascorbic Acid (Ascorbic Acid 250 Mg Tablet) 500 mg GT BID [facility] Stop: 05/17/25 20:59 Last Admin: 04/19/25 20:28 Dose: 500 mg Dextrose (Dextrose 50%-Water Inj 50 Ml Syringe) 25 ml IV Q15MIN PRN PRN Reason: BG 50-70 responsive npo pt Stop: 05/12/25 23:31 Dextrose (Dextrose 50%-Water Inj 50 Ml Syringe) 50 ml IV Q15MIN PRN PRN Reason: BG <50 OR BG <70 & pt unresponsive Stop: 05/12/25 23:31 Glucagon (Glucagon Inj 1 Mg Vial) 1 mg IM Q15MIN PRN PRN Reason: BG <70, and no IV access Metronidazole (Flagyl 500 Mg Iv) 500 mg in 100 mls @ 200 mls/hr IV Q8HR [facility] Stop: 04/20/25 13:08 Last Admin: 04/20/25 05:21 Dose: 100 mls/hr Ceftriaxone Sodium/Dextrose (Rocephin/D5w 1gm Iv Premix) 1 gm in 50 mls @ 100 mls/hr IV QDAY [facility] Stop: 04/25/25 09:47 Last Admin: 04/19/25 10:57 Dose: 100 mls/hr Insulin Glargine (Insulin Glargine (Lantus) 5 Unit/0.05 Ml (Per 5 Units)) 38 unit SC QDAY [facility] Stop: 05/13/25 08:59 Last Admin: 04/19/25 11:49 Dose: 38 unit Insulin Human Lispro (Insulin Lispro (Admelog) 1 Unit/0.01 Ml Unit) 0 unit SC Q6HR [facility]; Protocol Stop: 05/13/25 00:00 Last Admin: 04/20/25 06:00 Dose: Not Given Lansoprazole (Lansoprazole 30 Mg Tab.Rap.Dr) 30 mg GT BID [facility] Stop: 05/13/25 08:59 Last Admin: 04/19/25 20:29 Dose: 30 mg Metoprolol Tartrate (Metoprolol Tartrate 25 Mg Tablet) 100 mg GT BID [facility] Stop: 05/17/25 10:14 Last Admin: 04/19/25 20:27 Dose: 100 mg Ondansetron HCl (Ondansetron Inj 2 Mg/Ml Inj 2 Ml) 4 mg IVP Q6H PRN; Protocol PRN Reason: NAUSEA OR VOMITING Stop: 05/12/25 23:26 Last Admin: 04/17/25 05:28 Dose: 4 mg Rivaroxaban (Rivaroxaban 10 Mg Tablet) 20 mg PO QDAY [facility] Stop: 05/10/25 08:59 Last Admin: 04/19/25 11:46 Dose: 20 mg Sodium Hypochlorite (Sod Hypochlorite 1/4 Str 473 Ml Btl) 473 ml IRRIG HS [facility] Stop: 05/15/25 20:59 Last Admin: 04/19/25 22:00 Dose: 1 applicatio Zinc Sulfate (Zinc Sulfate 220 Mg Capsule) 220 mg GT QDAY [facility] Stop: 05/18/25 08:59 Last Admin: 04/19/25 11:42 Dose: 220 mg Discontinued Medications Hydrocodone Bitart/Acetaminophen (Hydrocodone/Apap 5/325 Tablet) 1 tab GT Q4HR PRN PRN Reason: PAIN SCALE 4-10(Mod-Sev Stop: 04/17/25 23:26 Last Admin: 04/14/25 20:25 Dose: 1 tab Albuterol/Ipratropium (Albuterol/Ipratropium (Duoneb) Rt Gloria 3 Ml Nebu) 3 ml INH X1 ONE Stop: 04/18/25 04:26 Last Admin: 04/18/25 04:46 Dose: 3 ml Bumetanide (Bumetanide Inj 0.25 Mg/Ml Vial 4 Ml) 2 mg IVP QDAY [facility] Stop: 05/13/25 08:59 Bumetanide (Bumetanide Inj 0.25 Mg/Ml Vial 4 Ml) 1 mg IVP X1 ONE Stop: 04/18/25 09:53 Last Admin: 04/18/25 12:23 Dose: 1 mg Collagenase (Collagenase Oint 30 Gm Tube) 0 gm TOP HS [facility] Stop: 05/15/25 20:59 Last Admin: 04/16/25 23:45 Dose: 1 applicatio Heparin Sodium (Porcine) (Heparin Sod Inj 5000 Unit/Ml Vial) 4,000 unit IV X1 ONE Stop: 04/13/25 10:31 Last Admin: 04/13/25 10:35 Dose: 4,000 unit Heparin Sodium/Dextrose (Heparin In D5w Ivpb) 25,000 unit in 250 mls @ 17.986 mls/hr IV .[id number] [facility]; Protocol Stop: 04/26/25 23:44 Last Titration: 04/19/25 00:00 Dose: 11.13 units/kg/hr, 21.926 mls/hr Sodium Chloride (Ns) 500 mls @ 999 mls/hr IV .Q31M ONE Stop: 04/13/25 12:49 Last Infusion: 04/13/25 23:38 Dose: Infused Cefepime HCl 2 gm/ Sodium (Chloride) 50 mls @ 100 mls/hr IV Q8HR [facility] Stop: 04/20/25 13:07 Last Admin: 04/18/25 05:19 Dose: 100 mls/hr Lactated Ringer's (Lactated Ringers) 500 mls @ 999 mls/hr IV .Q31M ONE Stop: 04/19/25 10:30 Last Admin: 04/19/25 12:07 Dose: Not Given Lactated Ringer's (Lactated Ringers) 500 mls @ 999 mls/hr IV .Q31M ONE Stop: 04/19/25 12:30 Last Admin: 04/19/25 11:59 Dose: 999 mls/hr Losartan Potassium (Losartan Potassium 25 Mg Tablet) 25 mg GT QDAY [facility] Stop: 05/13/25 08:59 Metoprolol Succinate (Metoprolol Succinate Xl 25 Mg Tabcr) 100 mg GT BID KOURTNEY Stop: 05/13/25 08:59 Last Admin: 04/17/25 09:00 Dose: Not Given Pantoprazole Sodium (Pantoprazole 40 Mg Tablet) 40 mg PO Q12HR [facility] Stop: 05/13/25 08:59 Last Admin: 04/14/25 08:38 Dose: 40 mg Silver Nitrate (Silver Nitrate 1 Appl Ea) 1 appl TOP X1 ONE Stop: 04/17/25 11:19 Last Admin: 04/17/25 11:18 Dose: Not Given Assessment & Plan Problem List (1) KENIA (acute kidney injury): Status: Acute Assessment and plan: Prerenal etiology versus ischemic ATN. Prolonged hospital course needing diuretics/fluids . Currently patient looks rather hypervolemic. Not sure if he is intravascularly volume depleted. At this point decided to proceed with albumin and tube feeds along with free water flushes. Progressively worsening renal function, patient still continues to make urine, though none recorded, patient has had a few wet diapers. Previously patient required hemodialysis for ATN during hospital stay, but is a poor candidate for outpatient hemodialysis, will need to talk to family found to pursue outpatient dialysis for long-term management of renal failure, the patient may require transfer to long-term acute care facility out of town for maintenance hemodialysis. ? Will give IV albumin challenge, monitor urine output and renal function, strict input and output recommend Fuller's catheter. ? Continue to monitor for 48 hours, if no improvement in renal function, consider adding Diamox (2) CHF (congestive heart failure): Qualifiers: Heart failure chronicity: chronic Heart failure type: right-sided Qualified Code(s): I50.812 - Chronic right heart failure Status: Acute Assessment and plan: History of right-sided diastolic heart failure, and obstructive sleep apnea, cardiology following, mild CHF on x-ray ? Management per primary team (3) Atrial fibrillation: Qualifiers: Atrial fibrillation type: unspecified Qualified Code(s): I48.91 - Unspecified atrial fibrillation Status: Acute Assessment and plan: Currently rate controlled ? Management per primary team (4) Respiratory failure: Status: Acute Assessment and plan: Status post tracheostomy, requiring mechanical ventilation at night for respiratory support, currently saturating well on trach collar. ? Management per primary team (5) Pneumonia: Status: Acute Assessment and plan: ? Management per primary team Suspected aspiration pneumonia Plan Plan of care discussed with Dr. Teressa Tobar PGY2 Attending Provider Attestation/Addendum Thank you [facility] for allowing me to participate in the care of Mr. Ortega. I will be out of town for 3 days. Hospitalist team was notified to call me or to call on-call nephrology if any renal emergencies.
[2025-04-20] MEDS: ASCORBIC ACID 250 MG TABLET 500 MG GT ×2 (09:34→20:12)
[2025-04-20] MEDS: ZINC SULFATE 220 MG CAPSULE GT (09:34)
[2025-04-20] MEDS: RIVAROXABAN 10 MG TABLET 20 MG PO (09:35)
[2025-04-20] MEDS: METOPROLOL TARTRATE 25 MG TABLET 100 MG GT ×2 (09:35→20:11)
[2025-04-20] MEDS: ALBUMIN HUMAN 25% IVPB 25 GM/100 ML BTL IV ×2 (09:36→20:12)
[2025-04-20] MEDS: AMIODARONE HCL 200 MG TABLET GT (09:36)
[2025-04-20] MEDS: LANSOPRAZOLE 30 MG TAB.RAP.DR GT ×2 (09:36→20:11)
[2025-04-20] MEDS: INSULIN GLARGINE (Lantus) 5 UNIT/0.05 ML (PER 5 UNITS) 38 UNIT SC (09:37)
[2025-04-20] MEDS: cefTRIAXone/D5w 1gm IV premix 1 GM/50 ML BAG IV (09:39)
--- NOTE | 2025-04-20 13:08 | PD.RESPRO ---
Documentation for date of: 04/20/25 Subjective Subjective Interval history: Patient seen and examined at bedside. Patient was seen by used building materials yard worker today, recommended IV albumin 25 g twice daily, strict I&O's with Fuller catheter and possibly starting patient on Diamox if no improvement noted with IV albumin. Patient at bedside was explained that if his renal function continues to worsen he might end up receiving hemodialysis, patient verbalized understanding. Otherwise worsening of renal function noted today, will continue to monitor. Patient seems to be significantly fluid overloaded. Free water flushes was decreased back to 40 cc/h. Otherwise patient reports he is doing well, has no current concerns. Patient is on blow-by by day and mechanical ventilation at night. Exam Vital Signs Temp Pulse Resp BP Pulse Ox O2 Del Method O2 Flow Rate 97.0 F 87 20 126/91 H 93 L Blow-by 9 04/20/25 12:00 04/20/25 12:00 04/20/25 12:00 04/20/25 12:00 04/20/25 12:00 04/20/25 12:00 04/20/25 12:00 FiO2 45 04/20/25 12:00 Narrative Exam General: AAOx3, morbidly obese, lying in bed HEENT: Tracheostomy, appears dry, PERRLA Cardiovascular: S1, S2, radial pulses +2 bilat, regular rate, possible ejection systolic murmur Pulmonary: Minimal crackles no wheezing GI: Jejunostomy tube in place and present, no active drainage Extremities: Trace edema in lower extremities bilaterally, dorsalis pedis pulses +2 bilaterally Neuro: AAOx3, limited exam as patient is bedbound at this time Objective Labs 04/20/25 05:15 04/20/25 05:15 Labs: Laboratory Results - last 24 hr 04/19/25 04/20/25 13:00 05:15 WBC 9.9 RBC 3.35 L Hgb 9.5 L Hct 30.2 L MCV 90 MCH 28.4 MCHC 31.5 RDW Std Deviation 56.7 H Plt Count 427 Neut % (Auto) 61 Lymph % (Auto) 21 Towner % (Auto) 13 H Eos % (Auto) 2 Baso % (Auto) 1 Neut # (Auto) 6.1 Lymph # (Auto) 2.1 Towner # (Auto) 1.3 H Eos # (Auto) 0.2 Baso # (Auto) 0.1 Immature Gran # (Auto) 0.13 H Absolute Nucleated RBC 0.00 Immature Gran % 1 H Nucleated RBC % 0 Sodium 139 133 L Potassium 4.4 4.4 Chloride 98 96 L Carbon Dioxide 32.7 H 28.2 Anion Gap 8 9 BUN 49 H 49 H Creatinine 2.4 H 2.9 H D Estim Creat Clear Calc 51.0 L 42.2 L eGFR 29 L 23 L BUN/Creatinine Ratio 20 17 Glucose 139 H 125 H Calculated Osmolality 292 280 Calcium 8.0 L 8.7 Corrected Calcium 8.6 9.4 Phosphorus 2.5 Magnesium 2.6 Total Bilirubin 0.3 ALT 7 L Alkaline Phosphatase 158 H Total Protein 5.5 L Albumin 3.2 L 3.1 L Globulin 2.4 Albumin/Globulin Ratio 1.3 ABG Interpretation ABG results: 04/18/25 04/18/25 04/18/25 04:40 06:27 10:30 ABG pH 7.28 L 7.33 L 7.36 ABG pCO2 72 H* 67 H 61 H ABG pO2 132 H 60 L D 60 L ABG HCO3 34 H 35 H 34 H ABG O2 Saturation 100 H 93 93 ABG Base Excess 6 H 7 H 8 H 04/19/25 08:53 ABG pH 7.47 H D ABG pCO2 45 D ABG pO2 66 L ABG HCO3 33 H ABG O2 Saturation 96 ABG Base Excess 8 H Quality Measures Quality Measures VTE therapy Advance care planning discussed with:: patient Assessment & Plan Assessment Current Active Medications: Generic Name Dose Route Start Last Admin Trade Name Freq PRN Reason Stop Dose Admin Amiodarone HCl 200 mg 04/13/25 09:00 04/20/25 09:36 Amiodarone Hcl 200 Mg Tablet GT 05/13/25 08:59 200 mg QDAY KOURTNEY Administration Amlodipine Besylate 10 mg 04/13/25 09:00 04/20/25 09:33 Amlodipine Besylate 5 Mg Tablet GT 05/13/25 08:59 10 mg QDAY KOURTNEY Administration Artificial Tears 0 drop 04/14/25 19:33 Artificial Tears 225 Drop/15 Ml Btl BOTH EYES 05/14/25 19:32 PRN PRN TO KEEP EYES MOIST Ascorbic Acid 500 mg 04/17/25 21:00 04/20/25 09:34 Ascorbic Acid 250 Mg Tablet GT 05/17/25 20:59 500 mg BID KOURTNEY Administration Dextrose 25 ml 04/12/25 23:32 Dextrose 50%-Water Inj 50 Ml Syringe IV 05/12/25 23:31 Q15MIN PRN BG 50-70 responsive npo pt Dextrose 50 ml 04/12/25 23:32 Dextrose 50%-Water Inj 50 Ml Syringe IV 05/12/25 23:31 Q15MIN PRN BG <50 OR BG <70 & pt unresponsive Glucagon 1 mg 04/12/25 23:32 Glucagon Inj 1 Mg Vial IM Q15MIN PRN BG <70, and no IV access Ceftriaxone Sodium/Dextrose 1 gm in 50 mls @ 100 mls/hr 04/18/25 09:48 04/20/25 09:39 Rocephin/D5w 1gm Iv Premix IV 04/25/25 09:47 100 mls/hr QDAY KOURTNEY Administration Albumin Human 25 gm in 100 mls @ 100 mls/hr 04/20/25 09:00 04/20/25 09:36 Albuminar-25 Ivpb IV 04/23/25 08:59 100 mls/hr BID KOURTNEY Administration Insulin Glargine 38 unit 04/13/25 09:00 04/20/25 09:37 Insulin Glargine (Lantus) 5 Unit/0.05 Ml (Per 5 Units) SC 05/13/25 08:59 38 unit QDAY KOURTNEY Administration Insulin Human Lispro 0 unit 04/13/25 00:00 04/20/25 06:00 Insulin Lispro (Admelog) 1 Unit/0.01 Ml Unit SC 05/13/25 00:00 Not Given Q6HR KOURTNEY Protocol Lansoprazole 30 mg 04/14/25 21:00 04/20/25 09:36 Lansoprazole 30 Mg Tab.Rap. GT 05/13/25 08:59 30 mg BID KOURTNEY Administration Metoprolol Tartrate 100 mg 04/17/25 10:15 04/20/25 09:35 Metoprolol Tartrate 25 Mg Tablet GT 05/17/25 10:14 100 mg BID KOURTNEY Administration Ondansetron HCl 4 mg 04/12/25 23:27 04/17/25 05:28 Ondansetron Inj 2 Mg/Ml Inj 2 Ml IVP 05/12/25 23:26 4 mg Q6H PRN Administration NAUSEA OR VOMITING Protocol Rivaroxaban 20 mg 04/19/25 09:00 04/20/25 09:35 Rivaroxaban 10 Mg Tablet PO 05/10/25 08:59 20 mg QDAY KOURTNEY Administration Sodium Hypochlorite 473 ml 04/15/25 21:00 04/19/25 22:00 Sod Hypochlorite 1/4 Str 473 Ml Btl IRRIG 05/15/25 20:59 1 applicatio HS KOURTNEY Administration Zinc Sulfate 220 mg 04/18/25 09:00 04/20/25 09:34 Zinc Sulfate 220 Mg Capsule GT 05/18/25 08:59 220 mg QDAY KOURTNEY Administration Plan Assessment 64-year-old male with past medical history of DM2, hypertension, A-fib, and Jehova's witness was admitted to the ICU on 02/27/2025 for shock and acute hypoxic respiratory failure. He is s/p laparoscopic J-tube placement from [facility]. #Acute kidney injury DDx: Prerenal versus ATN versus obstructive Creatinine 1.6 today Patient looks clinically hypovolemic at this time 04/18-patient did receive x 1 dose of Bumex yesterday Patient's sodium is 143, it was 140 this morning. This happened after 500 cc NS, will increase water flushes rather than bolus b/c of concern for hypernatremia . Plan: ?Started on IV albumin 25 g 3 times daily ?Attempt was made to place Fuller catheter however unable to pass catheter due to significant resistance and attempt was terminated. ?Discussed with nursing about possibility of weighing briefs daily, will monitor closely. ?Decreased free water flushes to 40 cc/h ?Avoid nephrotoxic agents ?Renally dose medicines #Decubitus ulcer #Chronic back pain Not requiring surgical intervention at this time Unstageable sacral ulcer Debridement bedside on 04/17/2025 Plan: - Monitor for signs of infection, bleeding - Wound care following - [place] 5 as needed - Skin barrier creams PRN #Jejunostomy tube #Abdominal abscess Patient report said that there was an intra-abdominal abscess that have could have been from a perforated ulcer in the past See also note reviewed, mentions that patient likely had a marginal ulcer, but also was not seen on EGD without, currently patient has no abdominal tenderness and is totally asymptomatic. No current drain at this time Patient is status post laparoscopic J-tube placement and is currently on feeds Patient will continue to have this tube and will likely go to a long-term care facility with this until patient can swallow safely Plan: ? Continue with cefepime IV and Flagyl IV at this time, last dose Flagyl today. ? Resumed tube feeds following debridement ? Monitor vitals closely #Right diastolic CHF Patient appears clinically dry at this point, will hold on diuresis at this time Plan: - Continue strict daily body weight - Daily weights - Strict I&O #Acute on Chronic Hypoxic Hypercapnic Respiratory Failure #Aspiration Pneumonia #Obesity hypoventilation syndrome and obstructive sleep apnea #Dysphagia #Tracheostomy Patient was intubated and ventilated due to hypoxic respiratory failure, was unable to be extubated. Tracheostomy was placed. PEG tube was able to be placed, patient transferred to [facility] for laparoscopic J-tube placement, is now being transferred back after procedure successfully completed Plan: - Dietary consulted, recommendations appreciated - Respiratory therapy consulted - Blow-by during the day, mechanical ventilation at night as needed ? Continue with cefepime and Flagyl IV at this time #Hx of A-fib [id number] score of 3 points indicating 3.2% risk of stroke per year HAS-BLED: 0 Currently rhythm controlled Plan: - Heparin transitioning to Xarelto - Amiodarone 200 mg QDAY - Metoprolol succinate 100 twice daily - Keep potassium and magnesium above 4 and 2 respectively - Telemetry #Right internal jugular venous thrombosis #Right arm swelling Continuing free water flushes, patient has gone multiple days of heparin drip since 04/01 Plan: ? Transitioned heparin drip (04/01-04/19) ? Will start Xarelto 20 mg qday #Morbid obesity #DM2 A1C 7.6 on 03/05/2025 Patient has a BMI of 79.5->68.7 Plan: - ISS scale 2 - Hypoglycemia protocol ordered - 38 units of Lantus #Health Maintenance Disposition: Telemetry DVT prophylaxis: Heparin drip, will be held at midnight GI prophylaxis: Protonix Diet: 2Cal Tube Feeds with 60 cc/hour water flush CODE STATUS: Full code Patient plan of care was discussed with the attending physician, Dr. Alicia. Elizabeth Lamas PGY1 Attending Provider Attestation/Addendum I attest that I was physically present for the evaluation, physical examination, lab and imaging review of the patient with the residents. I discussed the case with the residents and agree with the findings and plans of care as documented above. At bedside today, patient continues to appear comfortable, states she feels well and denies any new complaints. Saturating well on blow-by. Noted to have worsening pedal edema bilaterally. Also has worsening kidney function. Discussed with nephrology, recommended IV albumin challenge along with strict ins and out monitoring. Attempted Fuller catheter placement, unsuccessful due to body habitus. Started patient on albumin we will continue to monitor closely for renal function. Free water flushes decreased to 40 cc/h. Cortez Alicia MD
[2025-04-20] MEDS: SOD HYPOCHLORITE 1/4 STR 473 ML BTL IRRIG (20:25)
[2025-04-21] VITALS (16 sets, daily range): BP systolic 99–122; BP diastolic 73–86; PULSE 66–102; RESP 11–32; TEMP 35.9–37.2; O2SAT 95–100; BMI 68.5
[2025-04-21 06:19] LABS: Basophils # (Auto) 0.0 Thou/mm3 (0.0-0.2); Basophils % (Auto) 0 % (0-2.5); Eosinophils # (Auto) 0.2 Thou/mm3 (0.0-0.5); Eosinophils % (Auto) 3 % (0-10); Hematocrit 29.0 % (41.0-53.0); Hemoglobin 9.1 g/dL (13.5-16.0); Immature Granulocytes Auto 0.13 Thou/mm3 (0.00-0.00); Lymphocytes # (Auto) 2.0 Thou/mm3 (1.0-4.8); Lymphocytes % (Auto) 20 % (10-50); Mean Corpuscular HGB Conc 31.4 g/dl (31.0-37.0); Mean Corpuscular Hemoglobin 28.3 pg (25.0-35.0); Mean Corpuscular Volume 90 fL (80-100); Monocytes # (Auto) 1.3 Thou/mm3 (0.0-0.8); Monocytes % (Auto) 13 % (0-12); Neutrophils # (Auto) 6.0 Thou/mm3 (1.8-7.7); Neutrophils % (Auto) 62 % (37-80); Nucleated Red Blood Cell # 0.00 Thou/mm3 (0.00-0.00); Nucleated Red Blood Cell % 0 /100 WBC (0); Platelet Count 367 Thou/mm3 (140-440); RDW Standard Deviation 57.3 fL (35.1-43.9); Red Blood Count 3.22 Miln/mm3 (4.50-5.90); White Blood Count 9.7 Thou/mm3 (3.8-10.6)
[2025-04-21 07:40] LABS: Alanine Aminotransferase 8 U/L (10-49); Albumin, Serum 3.3 gm/dL (3.4-4.8); Albumin/Globulin Ratio 1.4 (1.2-2.2); Alkaline Phosphatase 159 U/L (46-116); Anion Gap 11 (7-16); BUN/Creatinine Ratio 20 Ratio (12-20); Bilirubin,Total 0.3 mg/dL (0.3-1.2); Blood Urea Nitrogen 65 mg/dL (9-23); Calcium 8.7 mg/dL (8.3-10.6); Calcium (Corrected) 9.3 mg/dL (8.5-10.1); Carbon Dioxide 29.3 mMol/L (20.0-31.0); Chloride 97 mMol/L (98-107); Creatinine (Component) 3.3 mg/dL (0.6-1.3); Estimated Creatinine Clearance 37.1 mL/min (>60); Globulin 2.4 gm/dL (2.3-3.5); Glucose 127 mg/dL (74-106); Magnesium 2.7 mg/dL (1.6-2.6); Osmolality,Calculated 294 (275-295); Potassium 4.6 mMol/L (3.4-5.1); Sodium 137 mMol/L (136-145); Total Protein 5.7 gm/dL (5.7-8.2); eGFR 20 See Note
[2025-04-21] MEDS: METOPROLOL TARTRATE 25 MG TABLET 100 MG GT ×2 (09:19→20:17)
[2025-04-21] MEDS: ASCORBIC ACID 250 MG TABLET 500 MG GT ×2 (09:19→20:14)
[2025-04-21] MEDS: ZINC SULFATE 220 MG CAPSULE GT (09:19)
[2025-04-21] MEDS: AMIODARONE HCL 200 MG TABLET GT (09:20)
[2025-04-21] MEDS: LANSOPRAZOLE 30 MG TAB.RAP.DR GT ×2 (09:20→20:14)
[2025-04-21] MEDS: RIVAROXABAN 10 MG TABLET 20 MG PO (09:21)
[2025-04-21] MEDS: ALBUMIN HUMAN 25% IVPB 25 GM/100 ML BTL IV ×2 (09:21→20:13)
[2025-04-21] MEDS: cefTRIAXone/D5w 1gm IV premix 1 GM/50 ML BAG IV (09:21)
[2025-04-21] MEDS: BUMETANIDE INJ 0.25 MG/ML VIAL 4 ML 2 MG IVP ×2 (09:22→18:13)
[2025-04-21] MEDS: INSULIN GLARGINE (Lantus) 5 UNIT/0.05 ML (PER 5 UNITS) 38 UNIT SC (09:27)
--- NOTE | 2025-04-21 10:50 | ESPR_ITS ---
Documentation for date of: 04/21/25 Subjective Subjective Interval history: Patient seen and examined at bedside. Patient has worsening renal function, considering significant bilateral edema and swelling of bilateral upper extremities, patient started on IV Bumex 2 mg IV twice daily. Unable to place Fuller catheter if patient to measure urine output, however urine output being measured by weighing briefs. Will repeat renal panel later today, patient at bedside was explained that if his renal function continues to worsen he might need temporary dialysis catheter placement, patient notes to understanding. If renal function continues to worsen, will need line placement in a.m. for hemodialysis Will continue to monitor patient. Exam Vital Signs Temp Pulse Resp BP Pulse Ox O2 Del Method O2 Flow Rate 97.2 F 82 21 H 122/83 95 Mechanical Ventilation 65 04/21/25 08:00 04/21/25 09:22 04/21/25 08:00 04/21/25 09:22 04/21/25 08:00 04/21/25 08:00 04/21/25 08:00 FiO2 65 04/21/25 08:00 Narrative Exam Physical Exam General: Awake and in no acute distress. Tracheostomy site clean, on mechanical ventilation, nods to questions, responsive. HEENT: Normocephalic, atraumatic, mucous membranes moist. Heart: Irregular rhythm, rate controlled, no murmurs. Possible ejection systolic murmur. Lungs: Bilateral coarse crackles. Abdomen: Soft, obese, nondistended, nontender, positive bowel sounds. ?No guarding or rebound tenderness. Neurologic: Alert and oriented x3, no gross neurological deficit, and patient able to move all 4 extremities. Extremities: 3+ bilateral lower extremity edema, 2+ bilateral upper extremity edema. Skin: No rash or ecchymoses. Patient has sacral decubitus ulcer. Objective Labs 04/21/25 05:37 04/21/25 05:37 Labs: Laboratory Results - last 24 hr 04/21/25 05:37 WBC 9.7 RBC 3.22 L Hgb 9.1 L Hct 29.0 L MCV 90 MCH 28.3 MCHC 31.4 RDW Std Deviation 57.3 H Plt Count 367 D Neut % (Auto) 62 Lymph % (Auto) 20 [place] % (Auto) 13 H Eos % (Auto) 3 Baso % (Auto) 0 Neut # (Auto) 6.0 Lymph # (Auto) 2.0 [place] # (Auto) 1.3 H Eos # (Auto) 0.2 Baso # (Auto) 0.0 Immature Gran # (Auto) 0.13 H Absolute Nucleated RBC 0.00 Immature Gran % 1 H Nucleated RBC % 0 Sodium 137 Potassium 4.6 Chloride 97 L Carbon Dioxide 29.3 Anion Gap 11 BUN 65 H Creatinine 3.3 H Estim Creat Clear Calc 37.1 L eGFR 20 L BUN/Creatinine Ratio 20 Glucose 127 H Calculated Osmolality 294 Calcium 8.7 Corrected Calcium 9.3 Magnesium 2.7 H Total Bilirubin 0.3 ALT 8 L Alkaline Phosphatase 159 H Total Protein 5.7 Albumin 3.3 L Globulin 2.4 Albumin/Globulin Ratio 1.4 ABG Interpretation ABG results: 04/18/25 04/18/25 04/18/25 04:40 06:27 10:30 ABG pH 7.28 L 7.33 L 7.36 ABG pCO2 72 H* 67 H 61 H ABG pO2 132 H 60 L D 60 L ABG HCO3 34 H 35 H 34 H ABG O2 Saturation 100 H 93 93 ABG Base Excess 6 H 7 H 8 H 04/19/25 08:53 ABG pH 7.47 H D ABG pCO2 45 D ABG pO2 66 L ABG HCO3 33 H ABG O2 Saturation 96 ABG Base Excess 8 H Quality Measures Quality Measures VTE therapy Advance care planning discussed with:: patient Assessment & Plan Assessment Current Active Medications: Generic Name Dose Route Start Last Admin Trade Name Freq PRN Reason Stop Dose Admin Amiodarone HCl 200 mg 04/13/25 09:00 04/21/25 09:20 Amiodarone Hcl 200 Mg Tablet GT 05/13/25 08:59 200 mg QDAY KOURTNEY Administration Amlodipine Besylate 10 mg 04/13/25 09:00 04/21/25 09:20 Amlodipine Besylate 5 Mg Tablet GT 05/13/25 08:59 10 mg QDAY KOURTNEY Administration Artificial Tears 0 drop 04/14/25 19:33 Artificial Tears 225 Drop/15 Ml Btl BOTH EYES 05/14/25 19:32 PRN PRN TO KEEP EYES MOIST Ascorbic Acid 500 mg 04/17/25 21:00 04/21/25 09:19 Ascorbic Acid 250 Mg Tablet GT 05/17/25 20:59 500 mg BID KOURTNEY Administration Bumetanide 2 mg 04/21/25 09:00 04/21/25 09:22 Bumetanide Inj 0.25 Mg/Ml Vial 4 Ml IVP 05/21/25 08:59 2 mg BIDD KOURTNEY Administration Dextrose 25 ml 04/12/25 23:32 Dextrose 50%-Water Inj 50 Ml Syringe IV 05/12/25 23:31 Q15MIN PRN BG 50-70 responsive npo pt Dextrose 50 ml 04/12/25 23:32 Dextrose 50%-Water Inj 50 Ml Syringe IV 05/12/25 23:31 Q15MIN PRN BG <50 OR BG <70 & pt unresponsive Glucagon 1 mg 04/12/25 23:32 Glucagon Inj 1 Mg Vial IM Q15MIN PRN BG <70, and no IV access Ceftriaxone Sodium/Dextrose 1 gm in 50 mls @ 100 mls/hr 04/18/25 09:48 04/21/25 09:21 Rocephin/D5w 1gm Iv Premix IV 04/25/25 09:47 100 mls/hr QDAY KOURTNEY Administration Albumin Human 25 gm in 100 mls @ 100 mls/hr 04/20/25 09:00 04/21/25 09:21 Albuminar-25 Ivpb IV 04/23/25 08:59 100 mls/hr BID KOURTNEY Administration Insulin Glargine 38 unit 04/13/25 09:00 04/21/25 09:27 Insulin Glargine (Lantus) 5 Unit/0.05 Ml (Per 5 Units) SC 05/13/25 08:59 38 unit QDAY KOURTNEY Administration Insulin Human Lispro 0 unit 04/13/25 00:00 04/21/25 06:01 Insulin Lispro (Admelog) 1 Unit/0.01 Ml Unit SC 05/13/25 00:00 Not Given Q6HR KOURTNEY Protocol Lansoprazole 30 mg 04/14/25 21:00 04/21/25 09:20 Lansoprazole 30 Mg Tab.Rap. GT 05/13/25 08:59 30 mg BID KOURTNEY Administration Metoprolol Tartrate 100 mg 04/17/25 10:15 04/21/25 09:19 Metoprolol Tartrate 25 Mg Tablet GT 05/17/25 10:14 100 mg BID KOURTNEY Administration Ondansetron HCl 4 mg 04/12/25 23:27 04/17/25 05:28 Ondansetron Inj 2 Mg/Ml Inj 2 Ml IVP 05/12/25 23:26 4 mg Q6H PRN Administration NAUSEA OR VOMITING Protocol Rivaroxaban 20 mg 04/19/25 09:00 04/21/25 09:21 Rivaroxaban 10 Mg Tablet PO 05/10/25 08:59 20 mg QDAY KOURTNEY Administration Sodium Hypochlorite 473 ml 04/15/25 21:00 04/20/25 20:25 Sod Hypochlorite 1/4 Str 473 Ml Btl IRRIG 05/15/25 20:59 1 applicatio HS KOURTNEY Administration Zinc Sulfate 220 mg 04/18/25 09:00 04/21/25 09:19 Zinc Sulfate 220 Mg Capsule GT 05/18/25 08:59 220 mg QDAY KOURTNEY Administration Plan Assessment 64-year-old male with past medical history of DM2, hypertension, A-fib, and Jehova's witness was admitted to the ICU on 02/27/2025 for shock and acute hypoxic respiratory failure. He is s/p laparoscopic J-tube placement from [facility]. #Fluid overload #Acute kidney injury DDx: Prerenal versus ATN versus obstructive Creatinine 1.6 today Patient looks clinically hypovolemic at this time 04/18-patient did receive x 1 dose of Bumex yesterday Patient's sodium is 143, it was 140 this morning. This happened after 500 cc NS, will increase water flushes rather than bolus b/c of concern for hypernatremia . 04/20 ? Attempt was made to place Fuller catheter however unable to pass catheter due to significant resistance and attempt was terminated. Discussed with nursing about possibility of weighing briefs daily. Plan: -Started on Bumex 2 mg IV daily ? Continue IV albumin 25 g 2 times daily -Monitor urine output ?Decreased free water flushes to 40 cc/h ?Avoid nephrotoxic agents ?Renally dose medicines #Right diastolic CHF Patient appears clinically dry at this point, will hold on diuresis at this time Plan: - Continue strict daily body weight - Daily weights - Strict I&O #Decubitus ulcer #Chronic back pain Not requiring surgical intervention at this time Unstageable sacral ulcer Debridement bedside on 04/17/2025 Plan: - Monitor for signs of infection, bleeding - Wound care following - [place] 5 as needed - Skin barrier creams PRN #Jejunostomy tube #Abdominal abscess Patient report said that there was an intra-abdominal abscess that have could have been from a perforated ulcer in the past See also note reviewed, mentions that patient likely had a marginal ulcer, but also was not seen on EGD without, currently patient has no abdominal tenderness and is totally asymptomatic. No current drain at this time Patient is status post laparoscopic J-tube placement and is currently on feeds Patient will continue to have this tube and will likely go to a long-term care facility with this until patient can swallow safely Plan: ? Continue with cefepime IV and Flagyl IV at this time, last dose Flagyl today. ? Resumed tube feeds following debridement ? Monitor vitals closely #Acute on Chronic Hypoxic Hypercapnic Respiratory Failure #Aspiration Pneumonia #Obesity hypoventilation syndrome and obstructive sleep apnea #Dysphagia #Tracheostomy Patient was intubated and ventilated due to hypoxic respiratory failure, was unable to be extubated. Tracheostomy was placed. PEG tube was able to be placed, patient transferred to [facility] for laparoscopic J-tube placement, is now being transferred back after procedure successfully completed Plan: - Dietary consulted, recommendations appreciated - Respiratory therapy consulted - Blow-by during the day, mechanical ventilation at night as needed ? Continue with Rocephin IV at this time #Hx of A-fib [id number] score of 3 points indicating 3.2% risk of stroke per year HAS-BLED: 0 Currently rhythm controlled Plan: - Heparin transitioning to Xarelto - Amiodarone 200 mg QDAY - Metoprolol succinate 100 twice daily - Keep potassium and magnesium above 4 and 2 respectively - Telemetry #Right internal jugular venous thrombosis #Right arm swelling Continuing free water flushes, patient has gone multiple days of heparin drip since 04/01 Plan: ? Transitioned heparin drip (04/01-04/19) ? Will start Xarelto 20 mg qday #Morbid obesity #DM2 A1C 7.6 on 03/05/2025 Patient has a BMI of 79.5->68.7 Plan: - ISS scale 2 - Hypoglycemia protocol ordered - 38 units of Lantus #Health Maintenance Disposition: Telemetry DVT prophylaxis: Heparin drip, will be held at midnight GI prophylaxis: Protonix Diet: 2Cal Tube Feeds with 60 cc/hour water flush CODE STATUS: Full code Patient plan of care was discussed with the attending physician, Dr. Alicia. Elizabeth Lamas PGY1 Attending Provider Attestation/Addendum I attest that I was physically present for the evaluation, physical examination, lab and imaging review of the patient with the residents. I discussed the case with the residents and agree with the findings and plans of care as documented above. At bedside today, patient is comfortable, denies any new complaints. Continues to be on mechanical ventilator, saturating well. Noted to have bilateral pedal edema along with edema around his hands, slightly worse than yesterday. WBC count has been improving. Kidney function noted to be worsening, BUN/creatinine of 65/3.3. Unable to insert a Fuller catheter yesterday but patient's RN stated that he is still making urine. We will start him on Bumex 2 mg IV twice daily and monitor his output along with renal function. Discussed with nephrology, agreed with plan to continue albumin and Bumex. Wound care have been following for decubitus ulcer. Patient is receiving tube feeds. Continues to be on Rocephin, we will complete 7 days after patient's tracheostomy tube dislodgment. Cortez Alicia MD
[2025-04-21 17:38] LABS: Albumin, Serum 3.2 gm/dL (3.4-4.8); Anion Gap 9 (7-16); BUN/Creatinine Ratio 19 Ratio (12-20); Blood Urea Nitrogen 68 mg/dL (9-23); Calcium 8.6 mg/dL (8.3-10.6); Calcium (Corrected) 9.2 mg/dL (8.5-10.1); Carbon Dioxide 30.0 mMol/L (20.0-31.0); Chloride 97 mMol/L (98-107); Creatinine (Component) 3.5 mg/dL (0.6-1.3); Estimated Creatinine Clearance 36.9 mL/min (>60); Glucose 136 mg/dL (74-106); Osmolality,Calculated 293 (275-295); Phosphorous 3.0 mg/dL (2.4-5.1); Potassium 5.2 mMol/L (3.4-5.1); Sodium 136 mMol/L (136-145); eGFR 19 See Note
[2025-04-21] MEDS: SOD HYPOCHLORITE 1/4 STR 473 ML BTL IRRIG (20:23)
[2025-04-22] VITALS (15 sets, daily range): BP systolic 113–131; BP diastolic 79–93; PULSE 68–91; RESP 12–27; TEMP 36.2–36.9; O2SAT 96–100; BMI 74.2
[2025-04-22] MEDS: SOD POLYSTYRENE SULFON SUSP 15 GM/60 ML BTL 30 GM PO (00:09)
[2025-04-22] MEDS: BUMETANIDE INJ 0.25 MG/ML VIAL 4 ML 2 MG IVP ×2 (05:24→17:01)
[2025-04-22 05:57] LABS: Basophils # (Auto) 0.1 Thou/mm3 (0.0-0.2); Basophils % (Auto) 1 % (0-2.5); Eosinophils # (Auto) 0.2 Thou/mm3 (0.0-0.5); Eosinophils % (Auto) 2 % (0-10); Hematocrit 29.0 % (41.0-53.0); Hemoglobin 9.8 g/dL (13.5-16.0); Immature Granulocytes Auto 0.16 Thou/mm3 (0.00-0.00); Lymphocytes # (Auto) 2.6 Thou/mm3 (1.0-4.8); Lymphocytes % (Auto) 24 % (10-50); Mean Corpuscular HGB Conc 33.8 g/dl (31.0-37.0); Mean Corpuscular Hemoglobin 29.5 pg (25.0-35.0); Mean Corpuscular Volume 87 fL (80-100); Monocytes # (Auto) 1.4 Thou/mm3 (0.0-0.8); Monocytes % (Auto) 13 % (0-12); Neutrophils # (Auto) 6.2 Thou/mm3 (1.8-7.7); Neutrophils % (Auto) 59 % (37-80); Nucleated Red Blood Cell # 0.00 Thou/mm3 (0.00-0.00); Nucleated Red Blood Cell % 0 /100 WBC (0); Platelet Count 373 Thou/mm3 (140-440); RDW Standard Deviation 54.9 fL (35.1-43.9); Red Blood Count 3.32 Miln/mm3 (4.50-5.90); White Blood Count 10.5 Thou/mm3 (3.8-10.6)
[2025-04-22 06:49] LABS: Alanine Aminotransferase 8 U/L (10-49); Albumin, Serum 3.5 gm/dL (3.4-4.8); Albumin/Globulin Ratio 1.5 (1.2-2.2); Alkaline Phosphatase 192 U/L (46-116); Anion Gap 11 (7-16); BUN/Creatinine Ratio 19 Ratio (12-20); Bilirubin,Total 0.3 mg/dL (0.3-1.2); Blood Urea Nitrogen 70 mg/dL (9-23); Calcium 8.9 mg/dL (8.3-10.6); Calcium (Corrected) 9.3 mg/dL (8.5-10.1); Carbon Dioxide 29.1 mMol/L (20.0-31.0); Chloride 94 mMol/L (98-107); Creatinine (Component) 3.7 mg/dL (0.6-1.3); Estimated Creatinine Clearance 34.9 mL/min (>60); Globulin 2.3 gm/dL (2.3-3.5); Glucose 99 mg/dL (74-106); Magnesium 2.6 mg/dL (1.6-2.6); Osmolality,Calculated 288 (275-295); Potassium 4.6 mMol/L (3.4-5.1); Sodium 134 mMol/L (136-145); Total Protein 5.8 gm/dL (5.7-8.2); eGFR 17 See Note
[2025-04-22] MEDS: ALBUMIN HUMAN 25% IVPB 25 GM/100 ML BTL IV ×2 (09:25→20:32)
[2025-04-22] MEDS: cefTRIAXone/D5w 1gm IV premix 1 GM/50 ML BAG IV (09:25)
[2025-04-22] MEDS: METOPROLOL TARTRATE 25 MG TABLET 100 MG GT ×2 (09:25→20:24)
[2025-04-22] MEDS: AMIODARONE HCL 200 MG TABLET GT (09:26)
[2025-04-22] MEDS: LANSOPRAZOLE 30 MG TAB.RAP.DR GT ×2 (09:26→20:25)
[2025-04-22] MEDS: ZINC SULFATE 220 MG CAPSULE GT (09:26)
[2025-04-22] MEDS: ASCORBIC ACID 250 MG TABLET 500 MG GT ×2 (09:26→20:25)
[2025-04-22] MEDS: RIVAROXABAN 10 MG TABLET 20 MG PO (09:26)
[2025-04-22] MEDS: INSULIN GLARGINE (Lantus) 5 UNIT/0.05 ML (PER 5 UNITS) 38 UNIT SC (09:27)
[2025-04-22] MEDS: ACETAzolaMIDE SOD 500 MG in SODIUM CHLORIDE 0.9% (Popper) 50 ML 100 MG IV (11:52)
--- NOTE | 2025-04-22 12:07 | PC.SS ---
Follow up note: Possible new dialysis. IV diuresis. Pending nephrology recommendations.
--- NOTE | 2025-04-22 12:46 | ESPR_ITS ---
Documentation for date of: 04/22/25 Subjective Subjective Interval history: Patient seen and examined at bedside. Patient continues to be fluid overloaded, though did have 900 cc urine output in the last 24 hours. We will continue diuresing with Bumex 2 mg twice daily, will give additional Diamox 500 mg x 1 per nephrology recommendations. Patient's creatinine is worsening, if renal function continues to decline, will likely need dialysis catheter placement. Will continue close monitoring of urine output. Otherwise patient is stable, currently on mechanical ventilation. Will hold Xarelto, as patient possibly might need dialysis catheter placement. Exam Vital Signs Temp Pulse Resp BP Pulse Ox O2 Del Method O2 Flow Rate 97.5 F 70 20 113/82 97 Mechanical Ventilation 65 04/22/25 12:00 04/22/25 12:00 04/22/25 12:00 04/22/25 12:00 04/22/25 12:00 04/22/25 12:00 04/21/25 16:00 FiO2 60 04/22/25 12:00 Narrative Exam Physical Exam General: Awake and in no acute distress. Tracheostomy site clean, on mechanical ventilation, nods to questions, responsive. HEENT: Normocephalic, atraumatic, mucous membranes moist. Heart: Irregular rhythm, rate controlled, no murmurs. Possible ejection systolic murmur. Lungs: Bilateral coarse crackles. Abdomen: Soft, obese, nondistended, nontender, positive bowel sounds. ?No guarding or rebound tenderness. Neurologic: Alert and oriented x3, no gross neurological deficit, and patient able to move all 4 extremities. Extremities: 3+ bilateral lower extremity edema, 2+ bilateral upper extremity edema. Skin: No rash or ecchymoses. Patient has sacral decubitus ulcer. Objective Labs 04/23/25 05:10 04/23/25 05:10 Labs: Laboratory Results - last 24 hr 04/21/25 04/22/25 16:58 05:02 WBC 10.5 RBC 3.32 L Hgb 9.8 L Hct 29.0 L MCV 87 MCH 29.5 MCHC 33.8 RDW Std Deviation 54.9 H Plt Count 373 Neut % (Auto) 59 Lymph % (Auto) 24 [place] % (Auto) 13 H Eos % (Auto) 2 Baso % (Auto) 1 Neut # (Auto) 6.2 Lymph # (Auto) 2.6 [place] # (Auto) 1.4 H Eos # (Auto) 0.2 Baso # (Auto) 0.1 Immature Gran # (Auto) 0.16 H Absolute Nucleated RBC 0.00 Immature Gran % 2 H Nucleated RBC % 0 Sodium 136 134 L Potassium 5.2 H D 4.6 D Chloride 97 L 94 L Carbon Dioxide 30.0 29.1 Anion Gap 9 11 BUN 68 H 70 H Creatinine 3.5 H 3.7 H Estim Creat Clear Calc 36.9 L 34.9 L eGFR 19 L 17 L BUN/Creatinine Ratio 19 19 Glucose 136 H 99 Calculated Osmolality 293 288 Calcium 8.6 8.9 Corrected Calcium 9.2 9.3 Phosphorus 3.0 Magnesium 2.6 Total Bilirubin 0.3 ALT 8 L Alkaline Phosphatase 192 H D Total Protein 5.8 Albumin 3.2 L 3.5 Globulin 2.3 Albumin/Globulin Ratio 1.5 ABG Interpretation ABG results: 04/18/25 04/18/25 04/18/25 04:40 06:27 10:30 ABG pH 7.28 L 7.33 L 7.36 ABG pCO2 72 H* 67 H 61 H ABG pO2 132 H 60 L D 60 L ABG HCO3 34 H 35 H 34 H ABG O2 Saturation 100 H 93 93 ABG Base Excess 6 H 7 H 8 H 04/19/25 08:53 ABG pH 7.47 H D ABG pCO2 45 D ABG pO2 66 L ABG HCO3 33 H ABG O2 Saturation 96 ABG Base Excess 8 H Quality Measures Quality Measures VTE therapy Advance care planning discussed with:: patient Assessment & Plan Assessment Current Active Medications: Generic Name Dose Route Start Last Admin Trade Name Freq PRN Reason Stop Dose Admin Amiodarone HCl 200 mg 04/13/25 09:00 04/22/25 09:26 Amiodarone Hcl 200 Mg Tablet GT 05/13/25 08:59 200 mg QDAY KOURTNEY Administration Amlodipine Besylate 10 mg 04/13/25 09:00 04/22/25 09:26 Amlodipine Besylate 5 Mg Tablet GT 05/13/25 08:59 10 mg QDAY KOURTNEY Administration Artificial Tears 0 drop 04/14/25 19:33 Artificial Tears 225 Drop/15 Ml Btl BOTH EYES 05/14/25 19:32 PRN PRN TO KEEP EYES MOIST Ascorbic Acid 500 mg 04/17/25 21:00 04/22/25 09:26 Ascorbic Acid 250 Mg Tablet GT 05/17/25 20:59 500 mg BID KOURTNEY Administration Bumetanide 2 mg 04/21/25 09:00 04/22/25 05:24 Bumetanide Inj 0.25 Mg/Ml Vial 4 Ml IVP 05/21/25 08:59 2 mg BIDD KOURTNEY Administration Dextrose 25 ml 04/12/25 23:32 Dextrose 50%-Water Inj 50 Ml Syringe IV 05/12/25 23:31 Q15MIN PRN BG 50-70 responsive npo pt Dextrose 50 ml 04/12/25 23:32 Dextrose 50%-Water Inj 50 Ml Syringe IV 05/12/25 23:31 Q15MIN PRN BG <50 OR BG <70 & pt unresponsive Glucagon 1 mg 04/12/25 23:32 Glucagon Inj 1 Mg Vial IM Q15MIN PRN BG <70, and no IV access Ceftriaxone Sodium/Dextrose 1 gm in 50 mls @ 100 mls/hr 04/18/25 09:48 04/22/25 09:25 Rocephin/D5w 1gm Iv Premix IV 04/25/25 09:47 100 mls/hr QDAY KOURTNEY Administration Albumin Human 25 gm in 100 mls @ 100 mls/hr 04/20/25 09:00 04/22/25 09:25 Albuminar-25 Ivpb IV 04/23/25 08:59 100 mls/hr BID KOURTNEY Administration Insulin Glargine 38 unit 04/13/25 09:00 04/22/25 09:27 Insulin Glargine (Lantus) 5 Unit/0.05 Ml (Per 5 Units) SC 05/13/25 08:59 38 unit QDAY KOURTNEY Administration Insulin Human Lispro 0 unit 04/13/25 00:00 04/22/25 11:43 Insulin Lispro (Admelog) 1 Unit/0.01 Ml Unit SC 05/13/25 00:00 Not Given Q6HR [facility] Protocol Lansoprazole 30 mg 04/14/25 21:00 04/22/25 09:26 Lansoprazole 30 Mg Tab.Rap.Dr DUARTE 05/13/25 08:59 30 mg BID KOURTNEY Administration Metoprolol Tartrate 100 mg 04/17/25 10:15 04/22/25 09:25 Metoprolol Tartrate 25 Mg Tablet GT 05/17/25 10:14 100 mg BID KOURTNEY Administration Ondansetron HCl 4 mg 04/12/25 23:27 04/17/25 05:28 Ondansetron Inj 2 Mg/Ml Inj 2 Ml IVP 05/12/25 23:26 4 mg Q6H PRN Administration NAUSEA OR VOMITING Protocol Rivaroxaban 20 mg 04/19/25 09:00 04/22/25 09:26 Rivaroxaban 10 Mg Tablet PO 05/10/25 08:59 20 mg QDAY KOURTNEY Administration Sodium Hypochlorite 473 ml 04/15/25 21:00 04/21/25 20:23 Sod Hypochlorite 1/4 Str 473 Ml Btl IRRIG 05/15/25 20:59 1 applicatio HS KOURTNEY Administration Zinc Sulfate 220 mg 04/18/25 09:00 04/22/25 09:26 Zinc Sulfate 220 Mg Capsule GT 05/18/25 08:59 220 mg QDAY KOURTNEY Administration Plan Assessment 64-year-old male with past medical history of DM2, hypertension, A-fib, and Jehova's witness was admitted to the ICU on 02/27/2025 for shock and acute hypoxic respiratory failure. He is s/p laparoscopic J-tube placement from [facility]. #Fluid overload #Acute kidney injury DDx: Prerenal versus ATN versus obstructive Creatinine 1.6 today Patient looks clinically hypovolemic at this time 04/18-patient did receive x 1 dose of Bumex yesterday Patient's sodium is 143, it was 140 this morning. This happened after 500 cc NS, will increase water flushes rather than bolus b/c of concern for hypernatremia . 04/20 ? Attempt was made to place Fuller catheter however unable to pass catheter due to significant resistance and attempt was terminated. Discussed with nursing about possibility of weighing briefs daily. Plan: -Started on Bumex 2 mg IV daily, will give additional Diamox 500 mg x1 -Continue IV albumin 25 g 2 times daily -Monitor urine output -Hold free water flushes -Avoid nephrotoxic agents -Renally dose medicines #Right diastolic CHF Patient appears clinically dry at this point, will hold on diuresis at this time Plan: - Continue strict daily body weight - Daily weights - Strict I&O #Decubitus ulcer #Chronic back pain Not requiring surgical intervention at this time Unstageable sacral ulcer Debridement bedside on 04/17/2025 Plan: - Monitor for signs of infection, bleeding - Wound care following - [place] 5 as needed - Skin barrier creams PRN #Jejunostomy tube #Abdominal abscess Patient report said that there was an intra-abdominal abscess that have could have been from a perforated ulcer in the past See also note reviewed, mentions that patient likely had a marginal ulcer, but also was not seen on EGD without, currently patient has no abdominal tenderness and is totally asymptomatic. No current drain at this time Patient is status post laparoscopic J-tube placement and is currently on feeds Patient will continue to have this tube and will likely go to a long-term care facility with this until patient can swallow safely Plan: ? Continue with cefepime IV, Flagyl discontinued ? Resumed tube feeds following debridement ? Monitor vitals closely #Acute on Chronic Hypoxic Hypercapnic Respiratory Failure #Aspiration Pneumonia #Obesity hypoventilation syndrome and obstructive sleep apnea #Dysphagia #Tracheostomy Patient was intubated and ventilated due to hypoxic respiratory failure, was unable to be extubated. Tracheostomy was placed. PEG tube was able to be placed, patient transferred to [facility] for laparoscopic J-tube placement, is now being transferred back after procedure successfully completed Plan: - Dietary consulted, recommendations appreciated - Respiratory therapy consulted - Blow-by during the day, mechanical ventilation at night as needed ? Continue with Rocephin IV at this time #Hx of A-fib [id number] score of 3 points indicating 3.2% risk of stroke per year HAS-BLED: 0 Currently rhythm controlled Plan: - Heparin transitioning to Xarelto - Amiodarone 200 mg QDAY - Metoprolol succinate 100 twice daily - Keep potassium and magnesium above 4 and 2 respectively - Telemetry #Right internal jugular venous thrombosis #Right arm swelling Continuing free water flushes, patient has gone multiple days of heparin drip since 04/01 Plan: ? Transitioned heparin drip (04/01-04/19) ? Will start Xarelto 20 mg qday #Morbid obesity #DM2 A1C 7.6 on 03/05/2025 Patient has a BMI of 79.5->68.7 Plan: - ISS scale 2 - Hypoglycemia protocol ordered - 38 units of Lantus #Health Maintenance Disposition: Telemetry DVT prophylaxis: Xarelto, will be held at midnight as patient might possibly need dialysis catheter placement. GI prophylaxis: Protonix Diet: 2Cal Tube Feeds with 60 cc/hour water flush CODE STATUS: Full code Patient plan of care was discussed with the attending physician, Dr. Alicia. Elizabeth Lamas PGY1 Attending Provider Attestation/Addendum I attest that I was physically present for the evaluation, physical examination, lab and imaging review of the patient with the residents. I discussed the case with the residents and agree with the findings and plans of care as documented above. Cortez Alicia MD
[2025-04-22] MEDS: SOD HYPOCHLORITE 1/4 STR 473 ML BTL IRRIG (20:32)
[2025-04-22] MEDS: ACETAMINOPHEN 325 MG TABLET 650 MG PO (20:52)
[2025-04-23] VITALS (17 sets, daily range): BP systolic 116–129; BP diastolic 76–88; PULSE 72–109; RESP 12–26; TEMP 36.3–36.7; O2SAT 94–100; BMI 74.2
[2025-04-23 05:35] LABS: Basophils # (Auto) 0.1 Thou/mm3 (0.0-0.2); Basophils % (Auto) 1 % (0-2.5); Eosinophils # (Auto) 0.4 Thou/mm3 (0.0-0.5); Eosinophils % (Auto) 4 % (0-10); Hematocrit 27.4 % (41.0-53.0); Hemoglobin 9.0 g/dL (13.5-16.0); Immature Granulocytes Auto 0.04 Thou/mm3 (0.00-0.00); Lymphocytes # (Auto) 2.0 Thou/mm3 (1.0-4.8); Lymphocytes % (Auto) 22 % (10-50); Mean Corpuscular HGB Conc 32.8 g/dl (31.0-37.0); Mean Corpuscular Hemoglobin 28.1 pg (25.0-35.0); Mean Corpuscular Volume 86 fL (80-100); Monocytes # (Auto) 1.4 Thou/mm3 (0.0-0.8); Monocytes % (Auto) 15 % (0-12); Neutrophils # (Auto) 5.4 Thou/mm3 (1.8-7.7); Neutrophils % (Auto) 58 % (37-80); Nucleated Red Blood Cell # 0.00 Thou/mm3 (0.00-0.00); Nucleated Red Blood Cell % 0 /100 WBC (0); Platelet Count 334 Thou/mm3 (140-440); RDW Standard Deviation 55.5 fL (35.1-43.9); Red Blood Count 3.20 Miln/mm3 (4.50-5.90); White Blood Count 9.2 Thou/mm3 (3.8-10.6)
[2025-04-23] MEDS: BUMETANIDE INJ 0.25 MG/ML VIAL 4 ML 2 MG IVP ×2 (05:35→19:00)
[2025-04-23 06:11] LABS: Alanine Aminotransferase 10 U/L (10-49); Albumin, Serum 3.4 gm/dL (3.4-4.8); Albumin/Globulin Ratio 1.5 (1.2-2.2); Alkaline Phosphatase 212 U/L (46-116); Anion Gap 14 (7-16); BUN/Creatinine Ratio 16 Ratio (12-20); Bilirubin,Total 0.3 mg/dL (0.3-1.2); Blood Urea Nitrogen 65 mg/dL (9-23); Calcium 8.6 mg/dL (8.3-10.6); Calcium (Corrected) 9.1 mg/dL (8.5-10.1); Carbon Dioxide 26.5 mMol/L (20.0-31.0); Chloride 96 mMol/L (98-107); Creatinine (Component) 4.0 mg/dL (0.6-1.3); Estimated Creatinine Clearance 32.3 mL/min (>60); Globulin 2.3 gm/dL (2.3-3.5); Glucose 107 mg/dL (74-106); Osmolality,Calculated 290 (275-295); Potassium 4.7 mMol/L (3.4-5.1); Sodium 136 mMol/L (136-145); Total Protein 5.7 gm/dL (5.7-8.2); eGFR 16 See Note
[2025-04-23] MEDS: ASCORBIC ACID 250 MG TABLET 500 MG GT ×2 (08:41→20:56)
[2025-04-23] MEDS: METOPROLOL TARTRATE 25 MG TABLET 100 MG GT ×2 (08:41→20:56)
[2025-04-23] MEDS: cefTRIAXone/D5w 1gm IV premix 1 GM/50 ML BAG IV (08:42)
[2025-04-23] MEDS: AMIODARONE HCL 200 MG TABLET GT (08:42)
[2025-04-23] MEDS: LANSOPRAZOLE 30 MG TAB.RAP.DR GT ×2 (08:42→20:56)
[2025-04-23] MEDS: ZINC SULFATE 220 MG CAPSULE GT (08:42)
[2025-04-23] MEDS: INSULIN GLARGINE (Lantus) 5 UNIT/0.05 ML (PER 5 UNITS) 38 UNIT SC (09:06)
--- NOTE | 2025-04-23 11:24 | PD.RESPRO ---
Documentation for date of: 04/23/25 Subjective Subjective Interval history: Patient seen and examined at bedside, continues to remain fluid overloaded, on mechanical ventilation. Renal function is worsening, discussed with nephrology, patient will likely need dialysis, overnight urine output 600 cc. Will continue with IV Bumex, patient made n.p.o. after midnight, will be scheduled for dialysis catheter placement by interventional radiology in a.m. anticoagulation being held. Explained to the patient and bedside the process of dialysis, risks and benefits of the procedure explained. Patient nods to understanding. Patient is agreeable to starting dialysis in a.m. if necessary. Patient completed IV antibiotic treatment, antibiotics will be discontinued. Will continue to monitor urine output, nephrology is following. Exam Vital Signs Temp Pulse Resp BP Pulse Ox O2 Del Method O2 Flow Rate 97.6 F 74 18 129/83 94 L Mechanical Ventilation 65 04/23/25 08:00 04/23/25 08:42 04/23/25 08:00 04/23/25 08:42 04/23/25 08:00 04/23/25 08:00 04/23/25 08:00 FiO2 60 04/23/25 08:00 Narrative Exam Physical Exam General: Awake and in no acute distress. Tracheostomy site clean, on mechanical ventilation, nods to questions, responsive. HEENT: Normocephalic, atraumatic, mucous membranes moist. Heart: Irregular rhythm, rate controlled, no murmurs. Possible ejection systolic murmur. Lungs: Bilateral coarse crackles. Abdomen: Soft, obese, nondistended, nontender, positive bowel sounds. ?No guarding or rebound tenderness. Neurologic: Alert and oriented x3, no gross neurological deficit, and patient able to move all 4 extremities. Extremities: 3+ bilateral lower extremity edema, 3+ bilateral upper extremity edema. Skin: No rash or ecchymoses. Patient has sacral decubitus ulcer. Objective Labs 04/23/25 05:10 04/23/25 05:10 Labs: Laboratory Results - last 24 hr 04/23/25 05:10 WBC 9.2 RBC 3.20 L Hgb 9.0 L Hct 27.4 L MCV 86 MCH 28.1 MCHC 32.8 RDW Std Deviation 55.5 H Plt Count 334 D Neut % (Auto) 58 Lymph % (Auto) 22 [place] % (Auto) 15 H Eos % (Auto) 4 Baso % (Auto) 1 Neut # (Auto) 5.4 Lymph # (Auto) 2.0 [place] # (Auto) 1.4 H Eos # (Auto) 0.4 Baso # (Auto) 0.1 Immature Gran # (Auto) 0.04 H Absolute Nucleated RBC 0.00 Immature Gran % 0 Nucleated RBC % 0 Sodium 136 Potassium 4.7 Chloride 96 L Carbon Dioxide 26.5 Anion Gap 14 BUN 65 H Creatinine 4.0 H Estim Creat Clear Calc 32.3 L eGFR 16 L BUN/Creatinine Ratio 16 Glucose 107 H Calculated Osmolality 290 Calcium 8.6 Corrected Calcium 9.1 Total Bilirubin 0.3 ALT 10 Alkaline Phosphatase 212 H D Total Protein 5.7 Albumin 3.4 Globulin 2.3 Albumin/Globulin Ratio 1.5 ABG Interpretation ABG results: 04/18/25 04/18/25 04/18/25 04:40 06:27 10:30 ABG pH 7.28 L 7.33 L 7.36 ABG pCO2 72 H* 67 H 61 H ABG pO2 132 H 60 L D 60 L ABG HCO3 34 H 35 H 34 H ABG O2 Saturation 100 H 93 93 ABG Base Excess 6 H 7 H 8 H 04/19/25 08:53 ABG pH 7.47 H D ABG pCO2 45 D ABG pO2 66 L ABG HCO3 33 H ABG O2 Saturation 96 ABG Base Excess 8 H Quality Measures Quality Measures VTE therapy Advance care planning discussed with:: patient Assessment & Plan Assessment Current Active Medications: Generic Name Dose Route Start Last Admin Trade Name Freq PRN Reason Stop Dose Admin Acetaminophen 650 mg 04/22/25 20:43 04/22/25 20:52 Acetaminophen 325 Mg Tablet PO 05/22/25 20:42 650 mg Q6HR PRN Administration pain and Fever >100.4 Amiodarone HCl 200 mg 04/13/25 09:00 04/23/25 08:42 Amiodarone Hcl 200 Mg Tablet GT 05/13/25 08:59 200 mg QDAY KOURTNEY Administration Amlodipine Besylate 10 mg 04/13/25 09:00 04/23/25 08:42 Amlodipine Besylate 5 Mg Tablet GT 05/13/25 08:59 10 mg QDAY KOURTNEY Administration Artificial Tears 0 drop 04/14/25 19:33 Artificial Tears 225 Drop/15 Ml Btl BOTH EYES 05/14/25 19:32 PRN PRN TO KEEP EYES MOIST Ascorbic Acid 500 mg 04/17/25 21:00 04/23/25 08:41 Ascorbic Acid 250 Mg Tablet GT 05/17/25 20:59 500 mg BID KOURTNEY Administration Bumetanide 2 mg 04/21/25 09:00 04/23/25 05:35 Bumetanide Inj 0.25 Mg/Ml Vial 4 Ml IVP 05/21/25 08:59 2 mg BIDD KOURTNEY Administration Dextrose 25 ml 04/12/25 23:32 Dextrose 50%-Water Inj 50 Ml Syringe IV 05/12/25 23:31 Q15MIN PRN BG 50-70 responsive npo pt Dextrose 50 ml 04/12/25 23:32 Dextrose 50%-Water Inj 50 Ml Syringe IV 05/12/25 23:31 Q15MIN PRN BG <50 OR BG <70 & pt unresponsive Glucagon 1 mg 04/12/25 23:32 Glucagon Inj 1 Mg Vial IM Q15MIN PRN BG <70, and no IV access Insulin Glargine 38 unit 04/13/25 09:00 04/23/25 09:06 Insulin Glargine (Lantus) 5 Unit/0.05 Ml (Per 5 Units) SC 05/13/25 08:59 38 unit QDAY KOURTNEY Administration Insulin Human Lispro 0 unit 04/13/25 00:00 04/23/25 05:27 Insulin Lispro (Admelog) 1 Unit/0.01 Ml Unit SC 05/13/25 00:00 Not Given Q6HR KOURTNEY Protocol Lansoprazole 30 mg 04/14/25 21:00 04/23/25 08:42 Lansoprazole 30 Mg Tab.Rap. GT 05/13/25 08:59 30 mg BID KOURTNEY Administration Metoprolol Tartrate 100 mg 04/17/25 10:15 04/23/25 08:41 Metoprolol Tartrate 25 Mg Tablet GT 05/17/25 10:14 100 mg BID KOURTNEY Administration Ondansetron HCl 4 mg 04/12/25 23:27 04/17/25 05:28 Ondansetron Inj 2 Mg/Ml Inj 2 Ml IVP 05/12/25 23:26 4 mg Q6H PRN Administration NAUSEA OR VOMITING Protocol Rivaroxaban 20 mg 04/19/25 09:00 04/22/25 09:26 Rivaroxaban 10 Mg Tablet PO 05/10/25 08:59 20 mg QDAY KOURTNEY Administration Sodium Hypochlorite 473 ml 04/15/25 21:00 04/22/25 20:32 Sod Hypochlorite 1/4 Str 473 Ml Btl IRRIG 05/15/25 20:59 1 applicatio HS KOURTNEY Administration Zinc Sulfate 220 mg 04/18/25 09:00 04/23/25 08:42 Zinc Sulfate 220 Mg Capsule GT 05/18/25 08:59 220 mg QDAY KOURTNEY Administration Plan Assessment 64-year-old male with past medical history of DM2, hypertension, A-fib, and Jehova's witness was admitted to the ICU on 02/27/2025 for shock and acute hypoxic respiratory failure. He is s/p laparoscopic J-tube placement from [facility]. #Fluid overload #Acute kidney injury Most likely ATN Creatinine 1.6 today Patient looks clinically hypovolemic at this time 04/18-patient did receive x 1 dose of Bumex yesterday Patient's sodium is 143, it was 140 this morning. This happened after 500 cc NS, will increase water flushes rather than bolus b/c of concern for hypernatremia . 04/20 ? Attempt was made to place Fuller catheter however unable to pass catheter due to significant resistance and attempt was terminated. Discussed with nursing about possibility of weighing briefs daily. Plan: -Started on Bumex 2 mg IV daily -N.p.o. after midnight, dialysis catheter placement in a.m. -Anticoagulation being held -Monitor urine output -Hold free water flushes -Avoid nephrotoxic agents -Renally dose medicines #Right diastolic CHF Patient appears clinically dry at this point, will hold on diuresis at this time Plan: - Continue strict daily body weight - Daily weights - Strict I&O #Decubitus ulcer #Chronic back pain Not requiring surgical intervention at this time Unstageable sacral ulcer Debridement bedside on 04/17/2025 Plan: - Monitor for signs of infection, bleeding - Wound care following - [place] 5 as needed - Skin barrier creams PRN #Jejunostomy tube #Abdominal abscess Patient report said that there was an intra-abdominal abscess that have could have been from a perforated ulcer in the past See also note reviewed, mentions that patient likely had a marginal ulcer, but also was not seen on EGD without, currently patient has no abdominal tenderness and is totally asymptomatic. No current drain at this time Patient is status post laparoscopic J-tube placement and is currently on feeds Patient will continue to have this tube and will likely go to a long-term care facility with this until patient can swallow safely Plan: ? Completed antibiotic treatment. ? N.p.o. after midnight, continue tube feeds for now ? Monitor vitals closely #Acute on Chronic Hypoxic Hypercapnic Respiratory Failure #Aspiration Pneumonia #Obesity hypoventilation syndrome and obstructive sleep apnea #Dysphagia #Tracheostomy Patient was intubated and ventilated due to hypoxic respiratory failure, was unable to be extubated. Tracheostomy was placed. PEG tube was able to be placed, patient transferred to [facility] for laparoscopic J-tube placement, is now being transferred back after procedure successfully completed Plan: - Dietary consulted, recommendations appreciated - Respiratory therapy consulted - Blow-by during the day, mechanical ventilation at night as needed at baseline ? Continue with Rocephin IV at this time #Hx of A-fib [id number] score of 3 points indicating 3.2% risk of stroke per year HAS-BLED: 0 Currently rhythm controlled Plan: - Heparin transitioning to Xarelto, Xarelto being held - Amiodarone 200 mg QDAY - Metoprolol succinate 100 twice daily - Keep potassium and magnesium above 4 and 2 respectively - Telemetry #Right internal jugular venous thrombosis #Right arm swelling Continuing free water flushes, patient has gone multiple days of heparin drip since 04/01 Plan: ? Continue Xarelto 20 mg qday, being held #Morbid obesity #DM2 A1C 7.6 on 03/05/2025 Patient has a BMI of 79.5->68.7 Plan: - ISS scale 2 - Hypoglycemia protocol ordered - 38 units of Lantus #Health Maintenance Disposition: Telemetry DVT prophylaxis: Xarelto, will be held at midnight as patient might possibly need dialysis catheter placement. GI prophylaxis: Protonix Diet: 2Cal Tube Feeds with 60 cc/hour water flush, n.p.o. after midnight CODE STATUS: Full code Patient plan of care was discussed with the attending physician, Dr. Alicia. Elizabeth Lamas PGY1 Attending Provider Attestation/Addendum I attest that I was physically present for the evaluation, physical examination, lab and imaging review of the patient with the residents. I discussed the case with the residents and agree with the findings and plans of care as documented above. At bedside today, patient states she is feeling well and denies any new complaints. Continues to be on mechanical ventilator, saturating well. Hematology have been stable. Chemistry panel shows BUN/creatinine of 65/4.0, worsening creatinine compared to yesterday. Despite the Bumex, does not have impressive urinary output, continues to have bilateral pedal edema. Discussed with nephrology, we will continue with diuresis with Bumex. Patient may need to be started on hemodialysis if kidney function continues to worsen. We will keep him n.p.o. after midnight and order hemodialysis catheter placement with IR tomorrow. Explained to the patient in detail about plan, patient nodded of understanding and agrees with the plan. Cortez Alicia MD
[2025-04-23] MEDS: SOD HYPOCHLORITE 1/4 STR 473 ML BTL IRRIG (20:59)
[2025-04-24] VITALS (31 sets, daily range): BP systolic 113–172; BP diastolic 72–96; PULSE 67–99; RESP 14–30; TEMP 36.1–36.7; O2SAT 94–100; BMI 74.0
[2025-04-24] MEDS: DEXTROSE 50%-WATER INJ 50 ML SYRINGE 25 ML IV ×2 (03:17→05:27)
--- NOTE | 2025-04-24 03:32 | PC.NURSE ---
Patient's BS was 60. Gave 25 mL IV dextrose and rechecked after 15 minutes and BS is now 100. MD Dallas is aware
[2025-04-24] MEDS: BUMETANIDE INJ 0.25 MG/ML VIAL 4 ML 2 MG IVP ×2 (05:28→17:29)
[2025-04-24 05:51] LABS: Basophils # (Auto) 0.0 Thou/mm3 (0.0-0.2); Basophils % (Auto) 0 % (0-2.5); Eosinophils # (Auto) 0.4 Thou/mm3 (0.0-0.5); Eosinophils % (Auto) 4 % (0-10); Hematocrit 28.1 % (41.0-53.0); Hemoglobin 9.1 g/dL (13.5-16.0); Immature Granulocytes Auto 0.08 Thou/mm3 (0.00-0.00); Lymphocytes # (Auto) 2.6 Thou/mm3 (1.0-4.8); Lymphocytes % (Auto) 24 % (10-50); Mean Corpuscular HGB Conc 32.4 g/dl (31.0-37.0); Mean Corpuscular Hemoglobin 28.4 pg (25.0-35.0); Mean Corpuscular Volume 88 fL (80-100); Monocytes # (Auto) 1.5 Thou/mm3 (0.0-0.8); Monocytes % (Auto) 14 % (0-12); Neutrophils # (Auto) 6.1 Thou/mm3 (1.8-7.7); Neutrophils % (Auto) 57 % (37-80); Nucleated Red Blood Cell # 0.00 Thou/mm3 (0.00-0.00); Nucleated Red Blood Cell % 0 /100 WBC (0); Platelet Count 397 Thou/mm3 (140-440); RDW Standard Deviation 56.3 fL (35.1-43.9); Red Blood Count 3.20 Miln/mm3 (4.50-5.90); White Blood Count 10.6 Thou/mm3 (3.8-10.6)
[2025-04-24 06:29] LABS: Alanine Aminotransferase 10 U/L (10-49); Albumin, Serum 3.3 gm/dL (3.4-4.8); Albumin/Globulin Ratio 1.4 (1.2-2.2); Alkaline Phosphatase 201 U/L (46-116); Anion Gap 13 (7-16); BUN/Creatinine Ratio 20 Ratio (12-20); Bilirubin,Total 0.3 mg/dL (0.3-1.2); Blood Urea Nitrogen 90 mg/dL (9-23); Calcium 8.6 mg/dL (8.3-10.6); Calcium (Corrected) 9.2 mg/dL (8.5-10.1); Carbon Dioxide 29.5 mMol/L (20.0-31.0); Chloride 96 mMol/L (98-107); Creatinine (Component) 4.4 mg/dL (0.6-1.3); Estimated Creatinine Clearance 29.3 mL/min (>60); Globulin 2.3 gm/dL (2.3-3.5); Glucose 64 mg/dL (74-106); Osmolality,Calculated 301 (275-295); Potassium 4.9 mMol/L (3.4-5.1); Sodium 138 mMol/L (136-145); Total Protein 5.6 gm/dL (5.7-8.2); eGFR 14 See Note
[2025-04-24 07:51] LABS: Magnesium 2.8 mg/dL (1.6-2.6)
--- NOTE | 2025-04-24 08:21 | PC.NURSE ---
Received call from cardiac field laborer stating that per charge nurse patient will not fit on IR table due to size of patient. MD carballo made aware.
--- NOTE | 2025-04-24 08:25 | PD.RESPRO ---
Documentation for date of: 04/24/25 Subjective Subjective Interval history: Mr. Ortega is a 64-year-old male with a past medical history of type 2 diabetes mellitus, history of ATN, A-fib, hypertension, severe right-sided heart failure, HFpEF, severe BASIA, status post tracheostomy and jejunostomy, patient was previously admitted here for hypoxic respiratory failure requiring mechanical ventilation, was later transferred out to [facility] for jejunostomy tube placement, complicated by abdominal abscess, patient is now transferred back to [facility] for further management. The patient is noted to have pneumonia and acute hypoxic respiratory failure, requiring mechanical ventilation, nephrology was consulted as patient's renal function continues to worsen. Patient had previously required hemodialysis for ATN, but is a poor dialysis candidate outpatient. Patient noted to have significant fluid overload. Team gave 1 dose of Bumex with mild worsening of renal function. 500 cc bolus was given. Renal consultation requested for worsening renal failure in the setting of fluid overload. Medications/labs reviewed. Past medical history: As noted above Social history: Denies smoking and drinking 04/20/2025 patient currently seen in telemetry. On vent. S/p trach, J-tube. Blood pressure 124/83, heart rate 88. Hemoglobin 9.5, platelets 427. Sodium 133, potassium 4.4, bicarbonate 28, BUN 49, creatinine 2.9, calcium 9.4, phosphorus 2.5, magnesium 2.6, LFTs normal, albumin 3.1 x-ray showed, diffuse right lung pneumonia and a possible right pleural fluid. 04/24/2025: Pt examined at bedside today. No acute overnight events. Pt to get IR dialysis catheter today, and to start dialysis afterwards. Pt is agreeable and is wondering when he is going to get his catheter. Currently on mechanical ventilation and not on blow-by at this time. BUN/Cr 90 and 4.4 respectively, potassium 4.9, sodium 138, magnesium 2.8. No other complaints at this time. Exam Vital Signs Temp Pulse Resp BP Pulse Ox O2 Del Method O2 Flow Rate 97.9 F 84 17 113/72 94 L Mechanical Ventilation 65 04/24/25 08:00 04/24/25 08:00 04/24/25 08:00 04/24/25 08:00 04/24/25 08:00 04/24/25 08:00 04/24/25 08:00 FiO2 60 04/24/25 08:00 Narrative Exam General: AAOx3, lying down, severely morbidly obese HEENT: Dry mucous membranes, conjunctiva clear, EOMI, PERRLA, trachestomy Cardiovascular: Ejection systolic murmur, radial pulses +2 bilat, irregularly irregular, Pulmonary: Currently on mechanical ventilation and not blow-by GI: No tenderness to light or deep palpitation, no guarding, rigidity, rebound tenderness or distension, J-tube present Extremities: Pitting +2 bilaterally edema in lower extremities bilaterally, dorsalis pedis pulses +2 bilaterally, anasarca, right upper extremity more edematous than left Back: Decubitis ulcer, no bone visualization Neuro: AAOx3, no focal motor or sensory deficits in the UE or LE bilat Objective Labs 04/24/25 05:00 04/24/25 05:00 Labs: Laboratory Results - last 24 hr 04/24/25 05:00 WBC 10.6 RBC 3.20 L Hgb 9.1 L Hct 28.1 L MCV 88 MCH 28.4 MCHC 32.4 RDW Std Deviation 56.3 H Plt Count 397 D Neut % (Auto) 57 Lymph % (Auto) 24 [place] % (Auto) 14 H Eos % (Auto) 4 Baso % (Auto) 0 Neut # (Auto) 6.1 Lymph # (Auto) 2.6 [place] # (Auto) 1.5 H Eos # (Auto) 0.4 Baso # (Auto) 0.0 Immature Gran # (Auto) 0.08 H Absolute Nucleated RBC 0.00 Immature Gran % 1 H Nucleated RBC % 0 Sodium 138 Potassium 4.9 Chloride 96 L Carbon Dioxide 29.5 Anion Gap 13 BUN 90 H Creatinine 4.4 H* Estim Creat Clear Calc 29.3 L eGFR 14 L* BUN/Creatinine Ratio 20 Glucose 64 L Calculated Osmolality 301 H Calcium 8.6 Corrected Calcium 9.2 Magnesium 2.8 H Total Bilirubin 0.3 ALT 10 Alkaline Phosphatase 201 H Total Protein 5.6 L Albumin 3.3 L Globulin 2.3 Albumin/Globulin Ratio 1.4 ABG Interpretation ABG results: 04/18/25 04/18/25 04/18/25 04:40 06:27 10:30 ABG pH 7.28 L 7.33 L 7.36 ABG pCO2 72 H* 67 H 61 H ABG pO2 132 H 60 L D 60 L ABG HCO3 34 H 35 H 34 H ABG O2 Saturation 100 H 93 93 ABG Base Excess 6 H 7 H 8 H 04/19/25 08:53 ABG pH 7.47 H D ABG pCO2 45 D ABG pO2 66 L ABG HCO3 33 H ABG O2 Saturation 96 ABG Base Excess 8 H Quality Measures Quality Measures VTE therapy Advance care planning discussed with:: patient Assessment & Plan Assessment Current Active Medications: Generic Name Dose Route Start Last Admin Trade Name Freq PRN Reason Stop Dose Admin Acetaminophen 650 mg 04/22/25 20:43 04/22/25 20:52 Acetaminophen 325 Mg Tablet PO 05/22/25 20:42 650 mg Q6HR PRN Administration pain and Fever >100.4 Amiodarone HCl 200 mg 04/13/25 09:00 04/23/25 08:42 Amiodarone Hcl 200 Mg Tablet GT 05/13/25 08:59 200 mg QDAY KOURTNEY Administration Amlodipine Besylate 10 mg 04/13/25 09:00 04/23/25 08:42 Amlodipine Besylate 5 Mg Tablet GT 05/13/25 08:59 10 mg QDAY KOURTNEY Administration Artificial Tears 0 drop 04/14/25 19:33 Artificial Tears 225 Drop/15 Ml Btl BOTH EYES 05/14/25 19:32 PRN PRN TO KEEP EYES MOIST Ascorbic Acid 500 mg 04/17/25 21:00 04/23/25 20:56 Ascorbic Acid 250 Mg Tablet GT 05/17/25 20:59 500 mg BID KOURTNEY Administration Bumetanide 2 mg 04/21/25 09:00 04/24/25 05:28 Bumetanide Inj 0.25 Mg/Ml Vial 4 Ml IVP 05/21/25 08:59 2 mg BIDD KOURTNEY Administration Dextrose 25 ml 04/12/25 23:32 04/24/25 05:27 Dextrose 50%-Water Inj 50 Ml Syringe IV 05/12/25 23:31 25 ml Q15MIN PRN Administration BG 50-70 responsive npo pt Dextrose 50 ml 04/12/25 23:32 Dextrose 50%-Water Inj 50 Ml Syringe IV 05/12/25 23:31 Q15MIN PRN BG <50 OR BG <70 & pt unresponsive Glucagon 1 mg 04/12/25 23:32 Glucagon Inj 1 Mg Vial IM Q15MIN PRN BG <70, and no IV access Insulin Glargine 38 unit 04/13/25 09:00 04/24/25 07:44 Insulin Glargine (Lantus) 5 Unit/0.05 Ml (Per 5 Units) SC 05/13/25 08:59 Not Given QDAY KOURTNEY Insulin Human Lispro 0 unit 04/13/25 00:00 04/24/25 07:43 Insulin Lispro (Admelog) 1 Unit/0.01 Ml Unit SC 05/13/25 00:00 Not Given Q6HR KOURTNEY Protocol Lansoprazole 30 mg 04/14/25 21:00 04/23/25 20:56 Lansoprazole 30 Mg Tab.Joshua. GT 05/13/25 08:59 30 mg BID KOURTNEY Administration Metoprolol Tartrate 100 mg 04/17/25 10:15 04/23/25 20:56 Metoprolol Tartrate 25 Mg Tablet GT 05/17/25 10:14 100 mg BID KOURTNEY Administration Ondansetron HCl 4 mg 04/12/25 23:27 04/17/25 05:28 Ondansetron Inj 2 Mg/Ml Inj 2 Ml IVP 05/12/25 23:26 4 mg Q6H PRN Administration NAUSEA OR VOMITING Protocol Rivaroxaban 20 mg 04/19/25 09:00 04/22/25 09:26 Rivaroxaban 10 Mg Tablet PO 05/10/25 08:59 20 mg QDAY KOURTNEY Administration Sodium Hypochlorite 473 ml 04/15/25 21:00 04/23/25 20:59 Sod Hypochlorite 1/4 Str 473 Ml Btl IRRIG 05/15/25 20:59 1 applicatio HS KOURTNEY Administration Zinc Sulfate 220 mg 04/18/25 09:00 04/23/25 08:42 Zinc Sulfate 220 Mg Capsule GT 05/18/25 08:59 220 mg QDAY KOURTNEY Administration Plan Assessment 64-year-old male with past medical history of DM2, hypertension, A-fib, and Jehova's witness was admitted to the ICU on 02/27/2025 for shock and acute on chronic hypoxic respiratory failure. He is s/p laparoscopic J-tube placement from [facility]. 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 IR Dialysis Catheter today, follow up with dialysis session ? Reattempt Chacon catheter ? Avoid nephrotoxic agents ? Renally dose medicines ? Urea Urine and Cr ? Trend CMP and electrolytes #Right diastolic CHF #Decubitus ulcer #Chronic back pain #Jejunostomy tube #Acute on Chronic Hypoxic Hypercapnic Respiratory Failure #Obesity hypoventilation syndrome and obstructive sleep apnea #Tracheostomy #Hx of A-fib #Right internal jugular venous thrombosis #Right arm swelling #Morbid obesity #DM2 Above handled by primary hospitalist team Patient seen and care discussed with my attending physician, Dr. Teressa Shields, PGY-1 Attending Provider Attestation/Addendum Patient seen and examined with resident physician Dr. Salazar. Note reviewed, agree with findings and recommendations. Patient now with ischemic ATN with significant fluid overload and edema. Minimal urinary output despite diuretics. Currently with chronic hypoxic respiratory failure from right heart failure. Decided to proceed with dialysis. IR could not do permacatheter due to his body status-BMI 74. Requested ICU to place a Vas-Cath. Able to place IJ Vas-Cath. Patient consented with catheter and dialysis. He cannot come to local outpatient dialysis unit due to his morbid obesity, bedbound status. He needs to go to [facility]. Hep panel, PPD ordered. Dialysis orders- Hemodialysis for 2.5 hours, Qb 200, 2K, ultrafiltration 1 L, Epogen 6000, no heparin ordered. Plan of care discussed with the dialysis nurse. Please see dialysis flowsheet for further details. Plan of care discussed with primary team-Dr. Lamas
--- NOTE | 2025-04-24 08:30 | PC.NURSE ---
notified Randall storm that per charge nurse unable to perform procedure due to patient max out weight capacity for ir table.
[2025-04-24] MEDS: LANSOPRAZOLE 30 MG TAB.RAP.DR GT ×2 (08:33→21:15)
[2025-04-24] MEDS: ZINC SULFATE 220 MG CAPSULE GT (08:33)
[2025-04-24] MEDS: METOPROLOL TARTRATE 25 MG TABLET 100 MG GT ×2 (08:33→21:16)
[2025-04-24] MEDS: AMIODARONE HCL 200 MG TABLET GT (08:33)
[2025-04-24] MEDS: ASCORBIC ACID 250 MG TABLET 500 MG GT ×2 (08:34→21:17)
[2025-04-24] MEDS: MIDAZOLAM INJ 1 MG/ML VIAL 2 ML 4 MG IVP (10:30)
--- NOTE | 2025-04-24 10:49 | XR_ITS ---
Examination: AP chest single view Technique one AP portable semiupright chest single view Date and time: 12/25/2024 1056 hours INDICATIONS: Post insertion hemodialysis catheter IMPRESSION: Left internal jugular temporary dialysis catheter tip SVC Bilateral lung opacity, consistent with pneumonia with large layered right pleural effusion Tracheostomy tube tip 7 cm above nunu Prominent vascular congestion IMPRESSION: Left internal jugular temporary dialysis catheter tip SVC satisfactory position, no pneumothorax
--- NOTE | 2025-04-24 11:39 | PC.SS ---
Addendum entered by Janessa Ramírez 04/24/25 15:30: Pt will have temporary dialysis line placed (not perma cath). SS has spoken to Rosa from [employer], patient's [employer]onel insurance who explained their Summer Counselor, Dr. Barr is aware of patient's change in condition and will follow up when pt is closer for dc. Original Note: Follow up note: Dialysis cath placed. Unknown if pt will have dialysis permanently (pending if his kidneys improve). Pt is d/c to LTAC vs Subacute. Parents are unable to care for pt at home. [facility] is still accepting if pt requires dialysis.
--- NOTE | 2025-04-24 11:40 | ESPR_ITS ---
<Statement entered by Pavel Mendoza MD - 05/03/25 14:58> I reviewed above note and agree with findings and plans. I have also personally examined the patient with medicine team and went over assessment and plan with medical team including hospitality internship and resident physician. Documentation for date of: 04/24/25 Subjective Subjective Interval history: Patient seen and examined at bedside. Labs and Vitals Patient was unable to get permanent dialysis catheter placement by IR, ICU team consulted, patient has a temporary dialysis catheter placed. Will resume Xarelto and tube feeds. Nephrology consulted, patient will be scheduled for dialysis today. Will continue to monitor patient. Exam Vital Signs Temp Pulse Resp BP Pulse Ox O2 Del Method O2 Flow Rate 97.9 F 75 17 113/72 94 L Mechanical Ventilation 65 04/24/25 08:00 04/24/25 08:34 04/24/25 08:00 04/24/25 08:34 04/24/25 08:00 04/24/25 08:00 04/24/25 08:00 FiO2 60 04/24/25 08:00 Narrative Exam Physical Exam General: Awake and in no acute distress. Tracheostomy site clean, on mechanical ventilation, nods to questions, responsive. HEENT: Normocephalic, atraumatic, mucous membranes moist. Heart: Irregular rhythm, rate controlled, no murmurs. Possible ejection systolic murmur. Lungs: Bilateral coarse crackles. Abdomen: Soft, obese, nondistended, nontender, positive bowel sounds. ?No guarding or rebound tenderness. Neurologic: Alert and oriented x3, no gross neurological deficit, and patient able to move all 4 extremities. Extremities: 3+ bilateral lower extremity edema, 3+ bilateral upper extremity edema. Skin: No rash or ecchymoses. Patient has sacral decubitus ulcer. Objective Labs 04/24/25 05:00 04/24/25 05:00 Labs: Laboratory Results - last 24 hr 04/24/25 05:00 WBC 10.6 RBC 3.20 L Hgb 9.1 L Hct 28.1 L MCV 88 MCH 28.4 MCHC 32.4 RDW Std Deviation 56.3 H Plt Count 397 D Neut % (Auto) 57 Lymph % (Auto) 24 [place] % (Auto) 14 H Eos % (Auto) 4 Baso % (Auto) 0 Neut # (Auto) 6.1 Lymph # (Auto) 2.6 [place] # (Auto) 1.5 H Eos # (Auto) 0.4 Baso # (Auto) 0.0 Immature Gran # (Auto) 0.08 H Absolute Nucleated RBC 0.00 Immature Gran % 1 H Nucleated RBC % 0 Sodium 138 Potassium 4.9 Chloride 96 L Carbon Dioxide 29.5 Anion Gap 13 BUN 90 H Creatinine 4.4 H* Estim Creat Clear Calc 29.3 L eGFR 14 L* BUN/Creatinine Ratio 20 Glucose 64 L Calculated Osmolality 301 H Calcium 8.6 Corrected Calcium 9.2 Magnesium 2.8 H Total Bilirubin 0.3 ALT 10 Alkaline Phosphatase 201 H Total Protein 5.6 L Albumin 3.3 L Globulin 2.3 Albumin/Globulin Ratio 1.4 ABG Interpretation ABG results: 04/18/25 04/18/25 04/18/25 04:40 06:27 10:30 ABG pH 7.28 L 7.33 L 7.36 ABG pCO2 72 H* 67 H 61 H ABG pO2 132 H 60 L D 60 L ABG HCO3 34 H 35 H 34 H ABG O2 Saturation 100 H 93 93 ABG Base Excess 6 H 7 H 8 H 04/19/25 08:53 ABG pH 7.47 H D ABG pCO2 45 D ABG pO2 66 L ABG HCO3 33 H ABG O2 Saturation 96 ABG Base Excess 8 H Quality Measures Quality Measures VTE therapy Advance care planning discussed with:: patient Assessment & Plan Assessment Current Active Medications: Generic Name Dose Route Start Last Admin Trade Name Freq PRN Reason Stop Dose Admin Acetaminophen 650 mg 04/22/25 20:43 04/22/25 20:52 Acetaminophen 325 Mg Tablet PO 05/22/25 20:42 650 mg Q6HR PRN Administration pain and Fever >100.4 Amiodarone HCl 200 mg 04/13/25 09:00 04/24/25 08:33 Amiodarone Hcl 200 Mg Tablet GT 05/13/25 08:59 200 mg QDAY KOURTNEY Administration Amlodipine Besylate 10 mg 04/13/25 09:00 04/24/25 08:34 Amlodipine Besylate 5 Mg Tablet GT 05/13/25 08:59 10 mg QDAY KOURTNEY Administration Artificial Tears 0 drop 04/14/25 19:33 Artificial Tears 225 Drop/15 Ml Btl BOTH EYES 05/14/25 19:32 PRN PRN TO KEEP EYES MOIST Ascorbic Acid 500 mg 04/17/25 21:00 04/24/25 08:34 Ascorbic Acid 250 Mg Tablet GT 05/17/25 20:59 500 mg BID KOURTNEY Administration Bumetanide 2 mg 04/21/25 09:00 04/24/25 05:28 Bumetanide Inj 0.25 Mg/Ml Vial 4 Ml IVP 05/21/25 08:59 2 mg BIDD KOURTNEY Administration Dextrose 25 ml 04/12/25 23:32 04/24/25 05:27 Dextrose 50%-Water Inj 50 Ml Syringe IV 05/12/25 23:31 25 ml Q15MIN PRN Administration BG 50-70 responsive npo pt Dextrose 50 ml 04/12/25 23:32 Dextrose 50%-Water Inj 50 Ml Syringe IV 05/12/25 23:31 Q15MIN PRN BG <50 OR BG <70 & pt unresponsive Glucagon 1 mg 04/12/25 23:32 Glucagon Inj 1 Mg Vial IM Q15MIN PRN BG <70, and no IV access Insulin Glargine 38 unit 04/13/25 09:00 04/24/25 07:44 Insulin Glargine (Lantus) 5 Unit/0.05 Ml (Per 5 Units) SC 05/13/25 08:59 Not Given QDAY [facility] Insulin Human Lispro 0 unit 04/13/25 00:00 04/24/25 07:43 Insulin Lispro (Admelog) 1 Unit/0.01 Ml Unit SC 05/13/25 00:00 Not Given Q6HR [facility] Protocol Lansoprazole 30 mg 04/14/25 21:00 04/24/25 08:33 Lansoprazole 30 Mg Tab.Rap. GT 05/13/25 08:59 30 mg BID KOURTNEY Administration Metoprolol Tartrate 100 mg 04/17/25 10:15 04/24/25 08:33 Metoprolol Tartrate 25 Mg Tablet GT 05/17/25 10:14 100 mg BID KOURTNEY Administration Ondansetron HCl 4 mg 04/12/25 23:27 04/17/25 05:28 Ondansetron Inj 2 Mg/Ml Inj 2 Ml IVP 05/12/25 23:26 4 mg Q6H PRN Administration NAUSEA OR VOMITING Protocol Pharmacy Consult 1 each 04/24/25 08:43 Pharmacy Renal Dose Adjustment 1 Ea XX 05/24/25 08:42 PRN PRN CONSULT Rivaroxaban 20 mg 04/19/25 09:00 04/22/25 09:26 Rivaroxaban 10 Mg Tablet PO 05/10/25 08:59 20 mg QDAY KOURTNEY Administration Sodium Hypochlorite 473 ml 04/15/25 21:00 04/23/25 20:59 Sod Hypochlorite 1/4 Str 473 Ml Btl IRRIG 05/15/25 20:59 1 applicatio HS KOURTNEY Administration Zinc Sulfate 220 mg 04/18/25 09:00 04/24/25 08:33 Zinc Sulfate 220 Mg Capsule GT 05/18/25 08:59 220 mg QDAY KOURTNEY Administration Plan Assessment 64-year-old male with past medical history of DM2, hypertension, A-fib, and Jehova's witness was admitted to the ICU on 02/27/2025 for shock and acute hypoxic respiratory failure. He is s/p laparoscopic J-tube placement from [facility]. #Fluid overload #Acute on chronic hypoxic respiratory failure #Acute kidney injury-secondary to fluid overload versus ATN #Started on hemodialysis 04/24/2025, status post temporary dialysis catheter placement Patient looks clinically hypovolemic at this time 04/18-patient did receive x 1 dose of Bumex yesterday Patient's sodium is 143, it was 140 this morning. This happened after 500 cc NS, will increase water flushes rather than bolus b/c of concern for hypernatremia . 04/20 ? Attempt was made to place Fuller catheter however unable to pass catheter due to significant resistance and attempt was terminated. Discussed with nursing about possibility of weighing briefs daily. Plan: -Patient had temporary Vas-Cath placed today -Will start patient on dialysis, nephrology is on board -Will continue IV Bumex 2 mg IV daily -Anticoagulation resumed -Monitor urine output -Resumed free water flushes -Avoid nephrotoxic agents -Renally dose medicines #Right diastolic CHF Patient appears clinically dry at this point, will hold on diuresis at this time Plan: - Continue strict daily body weight - Daily weights - Strict I&O #Decubitus ulcer #Chronic back pain Not requiring surgical intervention at this time Unstageable sacral ulcer Debridement bedside on 04/17/2025 Plan: - Monitor for signs of infection, bleeding - Wound care following - [place] 5 as needed - Skin barrier creams PRN #Jejunostomy tube #Abdominal abscess Patient report said that there was an intra-abdominal abscess that have could have been from a perforated ulcer in the past See also note reviewed, mentions that patient likely had a marginal ulcer, but also was not seen on EGD without, currently patient has no abdominal tenderness and is totally asymptomatic. No current drain at this time Patient is status post laparoscopic J-tube placement and is currently on feeds Patient will continue to have this tube and will likely go to a long-term care facility with this until patient can swallow safely Plan: ? Completed antibiotic treatment. ? Resume tube feeds ? Monitor vitals closely #Aspiration Pneumonia, completed treatment #Obesity hypoventilation syndrome and obstructive sleep apnea #Dysphagia #Tracheostomy Patient was intubated and ventilated due to hypoxic respiratory failure, was unable to be extubated. Tracheostomy was placed. PEG tube was able to be placed, patient transferred to [facility] for laparoscopic J-tube placement, is now being transferred back after procedure successfully completed Plan: - Dietary consulted, recommendations appreciated - Respiratory therapy consulted - Blow-by during the day, mechanical ventilation at night as needed at baseline, currently on mechanical ventilation - Completed antibiotic treatment #Hx of A-fib [id number] score of 3 points indicating 3.2% risk of stroke per year HAS-BLED: 0 Currently rhythm controlled Plan: - Xarelto resumed - Amiodarone 200 mg QDAY - Metoprolol succinate 100 twice daily - Keep potassium and magnesium above 4 and 2 respectively - Telemetry #Right internal jugular venous thrombosis #Right arm swelling Continuing free water flushes, patient has gone multiple days of heparin drip since 04/01 Plan: ? Continue Xarelto 20 mg qday, resumed #Morbid obesity #DM2 A1C 7.6 on 03/05/2025 Patient has a BMI of 79.5->68.7 Plan: - ISS scale 2 - Hypoglycemia protocol ordered - 38 units of Lantus #Health Maintenance Disposition: Telemetry DVT prophylaxis: Xarelto. GI prophylaxis: Protonix Diet: 2Cal Tube Feeds with 30 cc/hour water flush CODE STATUS: Full code Patient plan of care was discussed with the attending physician, Dr. Mendoza. Elizabeth Lamas PGY1
--- NOTE | 2025-04-24 15:35 | PC.WOUND ---
Spoke with Dr. Negron regaring re-eval of coccygeal pressure injury for possible repeat debridement. MD will see pt when able.
--- NOTE | 2025-04-24 15:51 | PC.CC ---
Request from Dr. Lamas to obtain PA for tirzepetide for DM. Attempted PA for Jose Luisunjaro, however, authorization already on file with insurance. Updated .
[2025-04-24] MEDS: HEPARIN SOD INJ 1000 UNIT/ML VIAL 10 ML 3000 UNIT INDWELLCAT (15:56)
[2025-04-24] MEDS: SOD HYPOCHLORITE 1/4 STR 473 ML BTL IRRIG (21:17)
--- NOTE | 2025-04-24 21:20 | PD.RESPROC ---
Procedures Procedure Date / Time 04/24/252119 Central Line Placement Left IJ: Indication(s): other (Triple lumen dialysis catheter) Informed consent obtained: from patient Time out done, and the following verified: correct patient, side and site, procedure, patient position and implants and/or equipment Patient placed on monitor/pulse ox: Yes Hand Hygiene: alcohol-based hand rub Max Sterile Barrier Techniques used: cap, mask, sterile gown, sterile gloves and sterile full body drape Central line prep: Chlorhexidine scrub Local anesthesia used: lidocaine 2% Amount of anesthesia used (mL): 5 Ultrasound used for placement: Yes Sterile Technique if Ultrasound used, including sterile gel: yes Central line lumen inserted: triple Post procedure: sutured in place, good blood return, all ports aspirated, flushed, capped and sterile dressing applied Post procedure x-ray: tip of catheter in good position and no pneumothorax seen Patient tolerated procedure: well EBL(ml): 5 Complications: none
[2025-04-25] VITALS (30 sets, daily range): BP systolic 98–124; BP diastolic 60–86; PULSE 53–105; RESP 18–27; TEMP 36.2–37.1; O2SAT 91–98; BMI 74.0
[2025-04-25] MEDS: BUMETANIDE INJ 0.25 MG/ML VIAL 4 ML 2 MG IVP ×2 (05:37→17:25)
[2025-04-25 05:57] LABS: Basophils # (Auto) 0.1 Thou/mm3 (0.0-0.2); Basophils % (Auto) 1 % (0-2.5); Eosinophils # (Auto) 0.2 Thou/mm3 (0.0-0.5); Eosinophils % (Auto) 2 % (0-10); Hematocrit 28.4 % (41.0-53.0); Hemoglobin 8.9 g/dL (13.5-16.0); Immature Granulocytes Auto 0.07 Thou/mm3 (0.00-0.00); Lymphocytes # (Auto) 2.0 Thou/mm3 (1.0-4.8); Lymphocytes % (Auto) 23 % (10-50); Mean Corpuscular HGB Conc 31.3 g/dl (31.0-37.0); Mean Corpuscular Hemoglobin 28.0 pg (25.0-35.0); Mean Corpuscular Volume 89 fL (80-100); Monocytes # (Auto) 1.4 Thou/mm3 (0.0-0.8); Monocytes % (Auto) 16 % (0-12); Neutrophils # (Auto) 5.1 Thou/mm3 (1.8-7.7); Neutrophils % (Auto) 58 % (37-80); Nucleated Red Blood Cell # 0.00 Thou/mm3 (0.00-0.00); Nucleated Red Blood Cell % 0 /100 WBC (0); Platelet Count 352 Thou/mm3 (140-440); RDW Standard Deviation 57.9 fL (35.1-43.9); Red Blood Count 3.18 Miln/mm3 (4.50-5.90); White Blood Count 8.8 Thou/mm3 (3.8-10.6)
[2025-04-25 06:38] LABS: Alanine Aminotransferase 9 U/L (10-49); Albumin, Serum 3.1 gm/dL (3.4-4.8); Albumin/Globulin Ratio 1.3 (1.2-2.2); Alkaline Phosphatase 214 U/L (46-116); Anion Gap 11 (7-16); BUN/Creatinine Ratio 19 Ratio (12-20); Bilirubin,Total 0.3 mg/dL (0.3-1.2); Blood Urea Nitrogen 77 mg/dL (9-23); Calcium 8.3 mg/dL (8.3-10.6); Calcium (Corrected) 9.0 mg/dL (8.5-10.1); Carbon Dioxide 29.8 mMol/L (20.0-31.0); Chloride 97 mMol/L (98-107); Creatinine (Component) 4.1 mg/dL (0.6-1.3); Estimated Creatinine Clearance 31.5 mL/min (>60); Globulin 2.3 gm/dL (2.3-3.5); Glucose 130 mg/dL (74-106); Magnesium 2.6 mg/dL (1.6-2.6); Osmolality,Calculated 300 (275-295); Phosphorous 4.4 mg/dL (2.4-5.1); Potassium 4.6 mMol/L (3.4-5.1); Sodium 138 mMol/L (136-145); Total Protein 5.4 gm/dL (5.7-8.2); eGFR 15 See Note
--- NOTE | 2025-04-25 08:58 | ESPR_ITS ---
Documentation for date of: 04/25/25 Subjective Subjective Interval history: Mr. Ortega is a 64-year-old male with a past medical history of type 2 diabetes mellitus, history of ATN, A-fib, hypertension, severe right-sided heart failure, HFpEF, severe BASIA, status post tracheostomy and jejunostomy, patient was previously admitted here for hypoxic respiratory failure requiring mechanical ventilation, was later transferred out to [facility] for jejunostomy tube placement, complicated by abdominal abscess, patient is now transferred back to [facility] for further management. The patient is noted to have pneumonia and acute hypoxic respiratory failure, requiring mechanical ventilation, nephrology was consulted as patient's renal function continues to worsen. Patient had previously required hemodialysis for ATN, but is a poor dialysis candidate outpatient. Patient noted to have significant fluid overload. Team gave 1 dose of Bumex with mild worsening of renal function. 500 cc bolus was given. Renal consultation requested for worsening renal failure in the setting of fluid overload. Medications/labs reviewed. Past medical history: As noted above Social history: Denies smoking and drinking 04/20/2025 patient currently seen in telemetry. On vent. S/p trach, J-tube. Blood pressure 124/83, heart rate 88. Hemoglobin 9.5, platelets 427. Sodium 133, potassium 4.4, bicarbonate 28, BUN 49, creatinine 2.9, calcium 9.4, phosphorus 2.5, magnesium 2.6, LFTs normal, albumin 3.1 x-ray showed, diffuse right lung pneumonia and a possible right pleural fluid. 04/24/2025: Pt examined at bedside today. No acute overnight events. Pt to get IR dialysis catheter today, and to start dialysis afterwards. Pt is agreeable and is wondering when he is going to get his catheter. Currently on mechanical ventilation and not on blow-by at this time. BUN/Cr 90 and 4.4 respectively, potassium 4.9, sodium 138, magnesium 2.8. No other complaints at this time. 04/25/2025: Patient examined at bedside today. Currently on mechanical ventilation. Had dialysis yesterday. Patient's BUN/creatinine 77 and 4.1 respectively, magnesium 2.6, phosphorus 1.4, calcium 4.6. Patient will get second dialysis session today. Patient will require LTAC likely in [place] due to patient being on mechanical ventilation. Patient is usually on mechanical ventilation at night, blow-by during the day, however he has been requiring mechanical ventilation during the day. Exam Vital Signs Temp Pulse Resp BP Pulse Ox O2 Del Method O2 Flow Rate 97.2 F 67 18 117/75 92 L Mechanical Ventilation 65 04/25/25 04:00 04/25/25 06:55 04/25/25 04:00 04/25/25 05:37 04/25/25 06:55 04/25/25 04:00 04/24/25 16:00 FiO2 60 04/25/25 06:55 Narrative Exam General: AAOx3, lying down, severely morbidly obese HEENT: Dry mucous membranes, conjunctiva clear, EOMI, PERRLA, trachestomy Cardiovascular: Ejection systolic murmur, radial pulses +2 bilat, irregularly irregular, Pulmonary: Currently on mechanical ventilation and not blow-by GI: No tenderness to light or deep palpitation, no guarding, rigidity, rebound tenderness or distension, J-tube present Extremities: Trace edema in lower extremities bilaterally, dorsalis pedis pulses +2 bilaterally, anasarca, right upper extremity more edematous than left Back: Decubitis ulcer, no bone visualization Neuro: AAOx3, no focal motor or sensory deficits in the UE or LE bilat Objective Labs 04/25/25 04:43 04/25/25 04:43 Labs: Laboratory Results - last 24 hr 04/25/25 04:43 WBC 8.8 RBC 3.18 L Hgb 8.9 L Hct 28.4 L MCV 89 MCH 28.0 MCHC 31.3 RDW Std Deviation 57.9 H Plt Count 352 D Neut % (Auto) 58 Lymph % (Auto) 23 [place] % (Auto) 16 H Eos % (Auto) 2 Baso % (Auto) 1 Neut # (Auto) 5.1 Lymph # (Auto) 2.0 [place] # (Auto) 1.4 H Eos # (Auto) 0.2 Baso # (Auto) 0.1 Immature Gran # (Auto) 0.07 H Absolute Nucleated RBC 0.00 Immature Gran % 1 H Nucleated RBC % 0 Sodium 138 Potassium 4.6 Chloride 97 L Carbon Dioxide 29.8 Anion Gap 11 BUN 77 H Creatinine 4.1 H* Estim Creat Clear Calc 31.5 L eGFR 15 L BUN/Creatinine Ratio 19 Glucose 130 H D Calculated Osmolality 300 H Calcium 8.3 Corrected Calcium 9.0 Phosphorus 4.4 Magnesium 2.6 Total Bilirubin 0.3 ALT 9 L Alkaline Phosphatase 214 H Total Protein 5.4 L Albumin 3.1 L Globulin 2.3 Albumin/Globulin Ratio 1.3 ABG Interpretation ABG results: 04/18/25 04/18/25 04/18/25 04:40 06:27 10:30 ABG pH 7.28 L 7.33 L 7.36 ABG pCO2 72 H* 67 H 61 H ABG pO2 132 H 60 L D 60 L ABG HCO3 34 H 35 H 34 H ABG O2 Saturation 100 H 93 93 ABG Base Excess 6 H 7 H 8 H 04/19/25 08:53 ABG pH 7.47 H D ABG pCO2 45 D ABG pO2 66 L ABG HCO3 33 H ABG O2 Saturation 96 ABG Base Excess 8 H Quality Measures Quality Measures VTE therapy Advance care planning discussed with:: patient Assessment & Plan Assessment Current Active Medications: Generic Name Dose Route Start Last Admin Trade Name Freq PRN Reason Stop Dose Admin Acetaminophen 650 mg 04/22/25 20:43 04/22/25 20:52 Acetaminophen 325 Mg Tablet PO 05/22/25 20:42 650 mg Q6HR PRN Administration pain and Fever >100.4 Amiodarone HCl 200 mg 04/13/25 09:00 04/24/25 08:33 Amiodarone Hcl 200 Mg Tablet GT 05/13/25 08:59 200 mg QDAY KOURTNEY Administration Amlodipine Besylate 10 mg 04/13/25 09:00 04/24/25 08:34 Amlodipine Besylate 5 Mg Tablet GT 05/13/25 08:59 10 mg QDAY KOURTNEY Administration Artificial Tears 0 drop 04/14/25 19:33 Artificial Tears 225 Drop/15 Ml Btl BOTH EYES 05/14/25 19:32 PRN PRN TO KEEP EYES MOIST Ascorbic Acid 500 mg 04/17/25 21:00 04/24/25 21:17 Ascorbic Acid 250 Mg Tablet GT 05/17/25 20:59 500 mg BID KOURTNEY Administration Bumetanide 2 mg 04/21/25 09:00 04/25/25 05:37 Bumetanide Inj 0.25 Mg/Ml Vial 4 Ml IVP 05/21/25 08:59 2 mg BIDD KOURTNEY Administration Dextrose 25 ml 04/12/25 23:32 04/24/25 05:27 Dextrose 50%-Water Inj 50 Ml Syringe IV 05/12/25 23:31 25 ml Q15MIN PRN Administration BG 50-70 responsive npo pt Dextrose 50 ml 04/12/25 23:32 Dextrose 50%-Water Inj 50 Ml Syringe IV 05/12/25 23:31 Q15MIN PRN BG <50 OR BG <70 & pt unresponsive Glucagon 1 mg 04/12/25 23:32 Glucagon Inj 1 Mg Vial IM Q15MIN PRN BG <70, and no IV access Heparin Sodium (Porcine) 3,000 unit 04/24/25 13:46 04/24/25 15:56 Heparin Sod Inj 1000 Unit/Ml Vial 10 Ml INDWELLCAT 05/08/25 13:45 3,000 unit PRN PRN Administration DIALYSIS Albumin Human 25 gm in 100 mls @ 100 mls/min 04/24/25 11:52 Albuminar-25 Ivpb IV PRN PRN DIALYSIS Insulin Glargine 38 unit 04/13/25 09:00 04/24/25 07:44 Insulin Glargine (Lantus) 5 Unit/0.05 Ml (Per 5 Units) SC 05/13/25 08:59 Not Given QDAY [facility] Insulin Human Lispro 0 unit 04/13/25 00:00 04/25/25 05:39 Insulin Lispro (Admelog) 1 Unit/0.01 Ml Unit SC 05/13/25 00:00 Not Given Q6HR [facility] Protocol Lansoprazole 30 mg 04/14/25 21:00 04/24/25 21:15 Lansoprazole 30 Mg Tab. GT 05/13/25 08:59 30 mg BID KOURTNEY Administration Metoprolol Tartrate 100 mg 04/17/25 10:15 04/24/25 21:16 Metoprolol Tartrate 25 Mg Tablet GT 05/17/25 10:14 100 mg BID KOURTNEY Administration Ondansetron HCl 4 mg 04/12/25 23:27 04/17/25 05:28 Ondansetron Inj 2 Mg/Ml Inj 2 Ml IVP 05/12/25 23:26 4 mg Q6H PRN Administration NAUSEA OR VOMITING Protocol Pharmacy Consult 1 each 04/24/25 08:43 Pharmacy Renal Dose Adjustment 1 Ea XX 05/24/25 08:42 PRN PRN CONSULT Rivaroxaban 20 mg 04/19/25 09:00 04/24/25 21:19 Rivaroxaban 10 Mg Tablet PO 05/10/25 08:59 Not Given QDAY KOURTNEY Sodium Hypochlorite 473 ml 04/15/25 21:00 04/24/25 21:17 Sod Hypochlorite 1/4 Str 473 Ml Btl IRRIG 05/15/25 20:59 1 applicatio HS KOURTNEY Administration Zinc Sulfate 220 mg 04/18/25 09:00 04/24/25 08:33 Zinc Sulfate 220 Mg Capsule GT 05/18/25 08:59 220 mg QDAY KOURTNEY Administration Plan Assessment 64-year-old male with past medical history of DM2, hypertension, A-fib, and Jehova's witness was admitted to the ICU on 02/27/2025 for shock and acute on chronic hypoxic respiratory failure. He is s/p laparoscopic J-tube placement from [facility]. #Acute kidney injury-- seems to be in [place]hem[place] ATN with minimal UOP #Hypermagnesemia, resolved History of stones, BPH: None Creatinine today 4.1, phosphorus 4.4, magnesium 2.6 Patient will likely need long-term dialysis as patient is currently in ischemic ATN Patient will need to go to LTAC as patient will need dialysis and mechanical ventilation 1 L of fluid removed yesterday during first dialysis session Currently has Vas-Cath UOP minimal at this time Plan: ? Second dialysis session today ? Fuller catheter ? Avoid nephrotoxic agents ? Renally dose medicines ? Urea Urine and Cr ? Trend CMP and electrolytes ? Hepatitis panel and PPD for outpatient dialysis #Right diastolic CHF #Decubitus ulcer #Chronic back pain #Jejunostomy tube #Acute on Chronic Hypoxic Hypercapnic Respiratory Failure #Obesity hypoventilation syndrome and obstructive sleep apnea #Tracheostomy #Hx of A-fib #Right internal jugular venous thrombosis #Right arm swelling #Morbid obesity #DM2 Above handled by primary hospitalist team Patient seen and care discussed with my attending physician, Dr. Teressa Shields, PGY-1 Attending Provider Attestation/Addendum Patient seen and examined with resident physician Dr. Salazar. Note reviewed, agree with findings and recommendations. Patient now with ischemic ATN with significant fluid overload and edema. Minimal urinary output despite diuretics. Currently with chronic hypoxic respiratory failure from right heart failure. Decided to proceed with dialysis. IR could not do permacatheter due to his body status-BMI 74. Requested ICU to place a Vas-Cath. Able to place IJ Vas-Cath. Patient consented with catheter and dialysis. He cannot come to local outpatient dialysis unit due to his morbid obesity, bedbound status. He needs to go to [facility]. Hep panel, PPD ordered. 04/25/2025 patient currently seen in telemetry. Currently seen on dialysis. Second session. Hemodialysis for 3 hours, Qb 250, 2K, ultrafiltration 1-2 L, Epogen 6000, no heparin ordered. Plan of care discussed with the dialysis nurse. Please see dialysis flowsheet for further details. Next dialysis scheduled for tomorrow. Patient needs to go to LTAC. Plan of care discussed with primary team-Dr. Lamas
[2025-04-25] MEDS: ZINC SULFATE 220 MG CAPSULE GT (09:39)
[2025-04-25] MEDS: LANSOPRAZOLE 30 MG TAB.RAP.DR GT ×2 (09:39→20:49)
[2025-04-25] MEDS: INSULIN GLARGINE (Lantus) 5 UNIT/0.05 ML (PER 5 UNITS) 38 UNIT SC (09:39)
[2025-04-25] MEDS: ASCORBIC ACID 250 MG TABLET 500 MG GT ×2 (09:39→20:49)
[2025-04-25] MEDS: TUBERCULIN PPD INJ 5 UNIT/0.1 ML DOSE ID (11:46)
[2025-04-25] MEDS: INSULIN LISPRO (AdmeLOG) 1 UNIT/0.01 ML UNIT SC (11:47)
--- NOTE | 2025-04-25 13:12 | ESPR_ITS ---
<Statement entered by Pavel Mendoza MD - 05/03/25 17:27> I reviewed above note and agree with findings and plans. I have also personally examined the patient with medicine team and went over assessment and plan with medical team including manager internet and resident physician. Documentation for date of: 04/25/25 Subjective Subjective Interval history: Patient seen and examined at bedside. Patient received hemodialysis yesterday, had 1 L fluid removed. Patient continues to have good urine output, will continue with Bumex. Nephrology is following, will continue to monitor fluid status. Patient will be n.p.o. after midnight, scheduled for debridement of wound with general surgeon in a.m. Will continue to hold Xarelto. Exam Vital Signs Temp Pulse Resp BP Pulse Ox O2 Del Method O2 Flow Rate 97.4 F 65 26 H 109/68 94 L Mechanical Ventilation 65 04/25/25 12:55 04/25/25 12:58 04/25/25 12:55 04/25/25 12:55 04/25/25 12:58 04/25/25 08:00 04/25/25 12:55 FiO2 60 04/25/25 12:58 Narrative Exam Physical Exam General: Awake and in no acute distress. Tracheostomy site clean, on mechanical ventilation, nods to questions, responsive. HEENT: Normocephalic, atraumatic, mucous membranes moist. Heart: Irregular rhythm, rate controlled, no murmurs. Possible ejection systolic murmur. Lungs: Bilateral coarse crackles. Abdomen: Soft, obese, nondistended, nontender, positive bowel sounds. ?No guarding or rebound tenderness. Neurologic: Alert and oriented x3, no gross neurological deficit, and patient able to move all 4 extremities. Extremities: 3+ bilateral lower extremity edema, 3+ bilateral upper extremity edema. Skin: No rash or ecchymoses. Patient has sacral decubitus ulcer. Objective Labs 04/25/25 04:43 04/25/25 04:43 Labs: Laboratory Results - last 24 hr 04/25/25 04:43 WBC 8.8 RBC 3.18 L Hgb 8.9 L Hct 28.4 L MCV 89 MCH 28.0 MCHC 31.3 RDW Std Deviation 57.9 H Plt Count 352 D Neut % (Auto) 58 Lymph % (Auto) 23 [place] % (Auto) 16 H Eos % (Auto) 2 Baso % (Auto) 1 Neut # (Auto) 5.1 Lymph # (Auto) 2.0 [place] # (Auto) 1.4 H Eos # (Auto) 0.2 Baso # (Auto) 0.1 Immature Gran # (Auto) 0.07 H Absolute Nucleated RBC 0.00 Immature Gran % 1 H Nucleated RBC % 0 Sodium 138 Potassium 4.6 Chloride 97 L Carbon Dioxide 29.8 Anion Gap 11 BUN 77 H Creatinine 4.1 H* Estim Creat Clear Calc 31.5 L eGFR 15 L BUN/Creatinine Ratio 19 Glucose 130 H D Calculated Osmolality 300 H Calcium 8.3 Corrected Calcium 9.0 Phosphorus 4.4 Magnesium 2.6 Total Bilirubin 0.3 ALT 9 L Alkaline Phosphatase 214 H Total Protein 5.4 L Albumin 3.1 L Globulin 2.3 Albumin/Globulin Ratio 1.3 ABG Interpretation ABG results: 04/18/25 04/18/25 04/18/25 04:40 06:27 10:30 ABG pH 7.28 L 7.33 L 7.36 ABG pCO2 72 H* 67 H 61 H ABG pO2 132 H 60 L D 60 L ABG HCO3 34 H 35 H 34 H ABG O2 Saturation 100 H 93 93 ABG Base Excess 6 H 7 H 8 H 04/19/25 08:53 ABG pH 7.47 H D ABG pCO2 45 D ABG pO2 66 L ABG HCO3 33 H ABG O2 Saturation 96 ABG Base Excess 8 H Quality Measures Quality Measures VTE therapy Advance care planning discussed with:: patient Assessment & Plan Assessment Current Active Medications: Generic Name Dose Route Start Last Admin Trade Name Freq PRN Reason Stop Dose Admin Acetaminophen 650 mg 04/22/25 20:43 04/22/25 20:52 Acetaminophen 325 Mg Tablet PO 05/22/25 20:42 650 mg Q6HR PRN Administration pain and Fever >100.4 Amiodarone HCl 200 mg 04/13/25 09:00 04/25/25 09:44 Amiodarone Hcl 200 Mg Tablet GT 05/13/25 08:59 Not Given QDAY KOURTNEY Amlodipine Besylate 10 mg 04/13/25 09:00 04/25/25 09:44 Amlodipine Besylate 5 Mg Tablet GT 05/13/25 08:59 Not Given QDAY KOURTNEY Artificial Tears 0 drop 04/14/25 19:33 Artificial Tears 225 Drop/15 Ml Btl BOTH EYES 05/14/25 19:32 PRN PRN TO KEEP EYES MOIST Ascorbic Acid 500 mg 04/17/25 21:00 04/25/25 09:39 Ascorbic Acid 250 Mg Tablet GT 05/17/25 20:59 500 mg BID KOURTNEY Administration Bumetanide 2 mg 04/21/25 09:00 04/25/25 05:37 Bumetanide Inj 0.25 Mg/Ml Vial 4 Ml IVP 05/21/25 08:59 2 mg BIDD KOURTNEY Administration Dextrose 25 ml 04/12/25 23:32 04/24/25 05:27 Dextrose 50%-Water Inj 50 Ml Syringe IV 05/12/25 23:31 25 ml Q15MIN PRN Administration BG 50-70 responsive npo pt Dextrose 50 ml 04/12/25 23:32 Dextrose 50%-Water Inj 50 Ml Syringe IV 05/12/25 23:31 Q15MIN PRN BG <50 OR BG <70 & pt unresponsive Glucagon 1 mg 04/12/25 23:32 Glucagon Inj 1 Mg Vial IM Q15MIN PRN BG <70, and no IV access Heparin Sodium (Porcine) 3,000 unit 04/24/25 13:46 04/24/25 15:56 Heparin Sod Inj 1000 Unit/Ml Vial 10 Ml INDWELLCAT 05/08/25 13:45 3,000 unit PRN PRN Administration DIALYSIS Albumin Human 25 gm in 100 mls @ 100 mls/min 04/24/25 11:52 Albuminar-25 Ivpb IV PRN PRN DIALYSIS Insulin Glargine 38 unit 04/13/25 09:00 04/25/25 09:39 Insulin Glargine (Lantus) 5 Unit/0.05 Ml (Per 5 Units) SC 05/13/25 08:59 38 unit QDAY KOURTNEY Administration Insulin Human Lispro 0 unit 04/13/25 00:00 04/25/25 11:47 Insulin Lispro (Admelog) 1 Unit/0.01 Ml Unit SC 05/13/25 00:00 2 unit Q6HR KOURTNEY Administration Protocol Lansoprazole 30 mg 04/14/25 21:00 04/25/25 09:39 Lansoprazole 30 Mg Tab.Rap.Dr DUARTE 05/13/25 08:59 30 mg BID KOURTNEY Administration Metoprolol Tartrate 100 mg 04/17/25 10:15 04/25/25 09:44 Metoprolol Tartrate 25 Mg Tablet GT 05/17/25 10:14 Not Given BID KOURTNEY Ondansetron HCl 4 mg 04/12/25 23:27 04/17/25 05:28 Ondansetron Inj 2 Mg/Ml Inj 2 Ml IVP 05/12/25 23:26 4 mg Q6H PRN Administration NAUSEA OR VOMITING Protocol Pharmacy Consult 1 each 04/24/25 08:43 Pharmacy Renal Dose Adjustment 1 Ea XX 05/24/25 08:42 PRN PRN CONSULT Rivaroxaban 20 mg 04/19/25 09:00 04/24/25 21:19 Rivaroxaban 10 Mg Tablet PO 05/10/25 08:59 Not Given QDAY KOURTNEY Sodium Hypochlorite 473 ml 04/15/25 21:00 04/24/25 21:17 Sod Hypochlorite 1/4 Str 473 Ml Btl IRRIG 05/15/25 20:59 1 applicatio HS KOURTNEY Administration Zinc Sulfate 220 mg 04/18/25 09:00 04/25/25 09:39 Zinc Sulfate 220 Mg Capsule GT 05/18/25 08:59 220 mg QDAY KOURTNEY Administration Plan Assessment 64-year-old male with past medical history of DM2, hypertension, A-fib, and Jehova's witness was admitted to the ICU on 02/27/2025 for shock and acute hypoxic respiratory failure. He is s/p laparoscopic J-tube placement from [facility]. #Fluid overload #Acute on chronic hypoxic respiratory failure #Acute kidney injury-secondary to fluid overload versus ATN #Started on hemodialysis 04/24/2025, status post temporary dialysis catheter placement Patient looks clinically hypovolemic at this time 04/18-patient did receive x 1 dose of Bumex yesterday Patient's sodium is 143, it was 140 this morning. This happened after 500 cc NS, will increase water flushes rather than bolus b/c of concern for hypernatremia . 04/20 ? Attempt was made to place Fuller catheter however unable to pass catheter due to significant resistance and attempt was terminated. Discussed with nursing about possibility of weighing briefs daily. Plan: -Patient had temporary Vas-Cath placed yesterday -Patient received hemodialysis, 1 L fluid was removed -Will continue IV Bumex 2 mg IV daily -Anticoagulation will be held in anticipation of surgery in a.m. -Monitor urine output -Avoid nephrotoxic agents -Renally dose medicines #Decubitus ulcer #Chronic back pain Not requiring surgical intervention at this time Unstageable sacral ulcer Debridement bedside on 04/17/2025 Wound reassessed by wound care team and general surgeon on 04/24/2025 Per general surgery patient will likely need a debridement, is scheduled for a.m. Plan: - N.p.o. after midnight - Scheduled for debridement in OR in a.m. - [place] 5 as needed - Skin barrier creams PRN - Referral to wound care #Right diastolic CHF Patient appears clinically dry at this point, will hold on diuresis at this time Plan: - Continue strict daily body weight - Daily weights - Strict I&O #Jejunostomy tube #Abdominal abscess Patient report said that there was an intra-abdominal abscess that have could have been from a perforated ulcer in the past See also note reviewed, mentions that patient likely had a marginal ulcer, but also was not seen on EGD without, currently patient has no abdominal tenderness and is totally asymptomatic. No current drain at this time Patient is status post laparoscopic J-tube placement and is currently on feeds Patient will continue to have this tube and will likely go to a long-term care facility with this until patient can swallow safely Plan: ? Completed antibiotic treatment. ? Monitor vitals closely #Aspiration Pneumonia, completed treatment #Obesity hypoventilation syndrome and obstructive sleep apnea #Dysphagia #Tracheostomy Patient was intubated and ventilated due to hypoxic respiratory failure, was unable to be extubated. Tracheostomy was placed. PEG tube was able to be placed, patient transferred to [facility] for laparoscopic J-tube placement, is now being transferred back after procedure successfully completed Plan: - Dietary consulted, recommendations appreciated - Respiratory therapy consulted - Blow-by during the day, mechanical ventilation at night as needed at baseline, currently on mechanical ventilation - Completed antibiotic treatment #Hx of A-fib [id number] score of 3 points indicating 3.2% risk of stroke per year HAS-BLED: 0 Currently rhythm controlled Plan: - Xarelto held in anticipation of surgery in a.m. - Amiodarone 200 mg QDAY - Metoprolol succinate 100 twice daily - Keep potassium and magnesium above 4 and 2 respectively - Telemetry #Right internal jugular venous thrombosis #Right arm swelling Continuing free water flushes, patient has gone multiple days of heparin drip since 04/01 Plan: ? Xarelto 20 mg qday being held #Morbid obesity #DM2 A1C 7.6 on 03/05/2025 Patient has a BMI of 79.5->68.7 Plan: - ISS scale 2 - Hypoglycemia protocol ordered - 38 units of Lantus-will hold in a.m. #Health Maintenance Disposition: Telemetry DVT prophylaxis: Xarelto being held. GI prophylaxis: Protonix Diet: 2Cal Tube Feeds with 30 cc/hour water flush-n.p.o. after midnight CODE STATUS: Full code Patient plan of care was discussed with the attending physician, Dr. Mendoza. Elizabeth Lamas PGY1
[2025-04-25] MEDS: HEPARIN SOD INJ 1000 UNIT/ML VIAL 10 ML 3000 UNIT INDWELLCAT (15:13)
[2025-04-25 19:45] LABS: Creatinine,Random Urine 41 mg/dL (30-125); Urea Nitrogen, Random Urine 300.0 mg/dL (350.0-1000.0)
[2025-04-25] MEDS: METOPROLOL TARTRATE 25 MG TABLET 100 MG GT (20:48)
[2025-04-25] MEDS: SOD HYPOCHLORITE 1/4 STR 473 ML BTL IRRIG (20:50)
[2025-04-26] VITALS (32 sets, daily range): BP systolic 97–136; BP diastolic 62–98; PULSE 71–95; RESP 13–33; TEMP 36.1–37.2; O2SAT 92–98; BMI 71.2
[2025-04-26] MEDS: BUMETANIDE INJ 0.25 MG/ML VIAL 4 ML 2 MG IVP ×2 (05:05→17:46)
[2025-04-26 05:43] LABS: Basophils # (Auto) 0.0 Thou/mm3 (0.0-0.2); Basophils % (Auto) 1 % (0-2.5); Eosinophils # (Auto) 0.3 Thou/mm3 (0.0-0.5); Eosinophils % (Auto) 3 % (0-10); Hematocrit 27.2 % (41.0-53.0); Hemoglobin 8.9 g/dL (13.5-16.0); Immature Granulocytes Auto 0.08 Thou/mm3 (0.00-0.00); Lymphocytes # (Auto) 2.2 Thou/mm3 (1.0-4.8); Lymphocytes % (Auto) 25 % (10-50); Mean Corpuscular HGB Conc 32.7 g/dl (31.0-37.0); Mean Corpuscular Hemoglobin 28.1 pg (25.0-35.0); Mean Corpuscular Volume 86 fL (80-100); Monocytes # (Auto) 1.5 Thou/mm3 (0.0-0.8); Monocytes % (Auto) 17 % (0-12); Neutrophils # (Auto) 4.7 Thou/mm3 (1.8-7.7); Neutrophils % (Auto) 53 % (37-80); Nucleated Red Blood Cell # 0.00 Thou/mm3 (0.00-0.00); Nucleated Red Blood Cell % 0 /100 WBC (0); Platelet Count 305 Thou/mm3 (140-440); RDW Standard Deviation 56.3 fL (35.1-43.9); Red Blood Count 3.17 Miln/mm3 (4.50-5.90); White Blood Count 8.8 Thou/mm3 (3.8-10.6)
[2025-04-26 06:34] LABS: Alanine Aminotransferase 10 U/L (10-49); Albumin, Serum 3.2 gm/dL (3.4-4.8); Albumin/Globulin Ratio 1.3 (1.2-2.2); Alkaline Phosphatase 203 U/L (46-116); Anion Gap 12 (7-16); Aspartate Amino Transferase 22 U/L (0-34); BUN/Creatinine Ratio 17 Ratio (12-20); Bilirubin,Total 0.4 mg/dL (0.3-1.2); Blood Urea Nitrogen 59 mg/dL (9-23); Calcium 8.3 mg/dL (8.3-10.6); Calcium (Corrected) 8.9 mg/dL (8.5-10.1); Carbon Dioxide 30.2 mMol/L (20.0-31.0); Chloride 98 mMol/L (98-107); Creatinine (Component) 3.4 mg/dL (0.6-1.3); Estimated Creatinine Clearance 37.0 mL/min (>60); Globulin 2.4 gm/dL (2.3-3.5); Glucose 97 mg/dL (74-106); Magnesium 2.4 mg/dL (1.6-2.6); Osmolality,Calculated 295 (275-295); Phosphorous 3.7 mg/dL (2.4-5.1); Potassium 4.0 mMol/L (3.4-5.1); Sodium 140 mMol/L (136-145); Total Protein 5.6 gm/dL (5.7-8.2); eGFR 19 See Note
--- NOTE | 2025-04-26 08:53 | PD.RESPRO ---
Documentation for date of: 04/26/25 Subjective Subjective Interval history: Mr. Ortega is a 64-year-old male with a past medical history of type 2 diabetes mellitus, history of ATN, A-fib, hypertension, severe right-sided heart failure, HFpEF, severe BASIA, status post tracheostomy and jejunostomy, patient was previously admitted here for hypoxic respiratory failure requiring mechanical ventilation, was later transferred out to [facility] for jejunostomy tube placement, complicated by abdominal abscess, patient is now transferred back to [facility] for further management. The patient is noted to have pneumonia and acute hypoxic respiratory failure, requiring mechanical ventilation, nephrology was consulted as patient's renal function continues to worsen. Patient had previously required hemodialysis for ATN, but is a poor dialysis candidate outpatient. Patient noted to have significant fluid overload. Team gave 1 dose of Bumex with mild worsening of renal function. 500 cc bolus was given. Renal consultation requested for worsening renal failure in the setting of fluid overload. Medications/labs reviewed. Past medical history: As noted above Social history: Denies smoking and drinking 04/20/2025 patient currently seen in telemetry. On vent. S/p trach, J-tube. Blood pressure 124/83, heart rate 88. Hemoglobin 9.5, platelets 427. Sodium 133, potassium 4.4, bicarbonate 28, BUN 49, creatinine 2.9, calcium 9.4, phosphorus 2.5, magnesium 2.6, LFTs normal, albumin 3.1 x-ray showed, diffuse right lung pneumonia and a possible right pleural fluid. 04/24/2025: Pt examined at bedside today. No acute overnight events. Pt to get IR dialysis catheter today, and to start dialysis afterwards. Pt is agreeable and is wondering when he is going to get his catheter. Currently on mechanical ventilation and not on blow-by at this time. BUN/Cr 90 and 4.4 respectively, potassium 4.9, sodium 138, magnesium 2.8. No other complaints at this time. 04/25/2025: Patient examined at bedside today. Currently on mechanical ventilation. Had dialysis yesterday. Patient's BUN/creatinine 77 and 4.1 respectively, magnesium 2.6, phosphorus 1.4, calcium 4.6. Patient will get second dialysis session today. Patient will require LTAC likely in [place] due to patient being on mechanical ventilation. Patient is usually on mechanical ventilation at night, blow-by during the day, however he has been requiring mechanical ventilation during the day. 04/26/2025: Patient examined bedside today no acute overnight events. Currently on mechanical ventilation. Had dialysis yesterday, will get 1 more dialysis session today. Patient's BUN/creatinine 59 and 3.4 respectively, calcium 8.9, phosphorus 3.7, magnesium 2.4. Patient to get debridement of sacral wound today by general surgery. Patient will likely be on dialysis schedule Tuesday moving forward. Exam Vital Signs Temp Pulse Resp BP Pulse Ox O2 Del Method O2 Flow Rate 98.6 F 88 21 H 113/74 94 L Mechanical Ventilation 65 04/26/25 08:00 04/26/25 08:45 04/26/25 08:00 04/26/25 08:45 04/26/25 08:00 04/26/25 08:00 04/26/25 07:55 FiO2 60 04/26/25 07:55 Narrative Exam General: AAOx3, lying down, severely morbidly obese HEENT: Dry mucous membranes, conjunctiva clear, EOMI, PERRLA, trachestomy Cardiovascular: Ejection systolic murmur, radial pulses +2 bilat, irregularly irregular, Pulmonary: Currently on mechanical ventilation and not blow-by GI: No tenderness to light or deep palpitation, no guarding, rigidity, rebound tenderness or distension, J-tube present Extremities: Trace edema in lower extremities bilaterally, dorsalis pedis pulses +2 bilaterally, Back: Decubitis ulcer, no bone visualization Neuro: AAOx3, no focal motor or sensory deficits in the UE or LE bilat Objective Labs 04/28/25 05:50 04/28/25 05:50 Labs: Laboratory Results - last 24 hr 04/25/25 04/26/25 16:30 04:38 WBC 8.8 RBC 3.17 L Hgb 8.9 L Hct 27.2 L MCV 86 MCH 28.1 MCHC 32.7 RDW Std Deviation 56.3 H Plt Count 305 D Neut % (Auto) 53 Lymph % (Auto) 25 [place] % (Auto) 17 H Eos % (Auto) 3 Baso % (Auto) 1 Neut # (Auto) 4.7 Lymph # (Auto) 2.2 [place] # (Auto) 1.5 H Eos # (Auto) 0.3 Baso # (Auto) 0.0 Immature Gran # (Auto) 0.08 H Absolute Nucleated RBC 0.00 Immature Gran % 1 H Nucleated RBC % 0 Sodium 140 Potassium 4.0 D Chloride 98 Carbon Dioxide 30.2 Anion Gap 12 BUN 59 H Creatinine 3.4 H D Estim Creat Clear Calc 37.0 L eGFR 19 L BUN/Creatinine Ratio 17 Glucose 97 Calculated Osmolality 295 Calcium 8.3 Corrected Calcium 8.9 Phosphorus 3.7 Magnesium 2.4 Total Bilirubin 0.4 AST 22 ALT 10 Alkaline Phosphatase 203 H Total Protein 5.6 L Albumin 3.2 L Globulin 2.4 Albumin/Globulin Ratio 1.3 Ur Random Creatinine 41 Ur Random Urea Nitrogn 300.0 L ABG Interpretation ABG results: 04/18/25 04/18/25 04/18/25 04:40 06:27 10:30 ABG pH 7.28 L 7.33 L 7.36 ABG pCO2 72 H* 67 H 61 H ABG pO2 132 H 60 L D 60 L ABG HCO3 34 H 35 H 34 H ABG O2 Saturation 100 H 93 93 ABG Base Excess 6 H 7 H 8 H 04/19/25 08:53 ABG pH 7.47 H D ABG pCO2 45 D ABG pO2 66 L ABG HCO3 33 H ABG O2 Saturation 96 ABG Base Excess 8 H Quality Measures Quality Measures VTE therapy Advance care planning discussed with:: patient Assessment & Plan Assessment Current Active Medications: Generic Name Dose Route Start Last Admin Trade Name Freq PRN Reason Stop Dose Admin Acetaminophen 650 mg 04/22/25 20:43 04/22/25 20:52 Acetaminophen 325 Mg Tablet PO 05/22/25 20:42 650 mg Q6HR PRN Administration pain and Fever >100.4 Amiodarone HCl 200 mg 04/13/25 09:00 04/25/25 09:44 Amiodarone Hcl 200 Mg Tablet GT 05/13/25 08:59 Not Given QDAY KOURTNEY Amlodipine Besylate 10 mg 04/13/25 09:00 04/25/25 09:44 Amlodipine Besylate 5 Mg Tablet GT 05/13/25 08:59 Not Given QDAY KOURTNEY Artificial Tears 0 drop 04/14/25 19:33 Artificial Tears 225 Drop/15 Ml Btl BOTH EYES 05/14/25 19:32 PRN PRN TO KEEP EYES MOIST Ascorbic Acid 500 mg 04/17/25 21:00 04/25/25 20:49 Ascorbic Acid 250 Mg Tablet GT 05/17/25 20:59 500 mg BID KOURTNEY Administration Bumetanide 2 mg 04/21/25 09:00 04/26/25 05:05 Bumetanide Inj 0.25 Mg/Ml Vial 4 Ml IVP 05/21/25 08:59 2 mg BIDD KOURTNEY Administration Dextrose 25 ml 04/12/25 23:32 04/24/25 05:27 Dextrose 50%-Water Inj 50 Ml Syringe IV 05/12/25 23:31 25 ml Q15MIN PRN Administration BG 50-70 responsive npo pt Dextrose 50 ml 04/12/25 23:32 Dextrose 50%-Water Inj 50 Ml Syringe IV 05/12/25 23:31 Q15MIN PRN BG <50 OR BG <70 & pt unresponsive Epoetin Rambo 10,000 unit 04/26/25 10:00 Epoetin Rambo-Epbx Inj 10,000 Unit/Ml Vial (Non-Esrd) IV 04/26/25 10:01 X1 ONE Glucagon 1 mg 04/12/25 23:32 Glucagon Inj 1 Mg Vial IM Q15MIN PRN BG <70, and no IV access Heparin Sodium (Porcine) 3,000 unit 04/24/25 13:46 04/25/25 15:13 Heparin Sod Inj 1000 Unit/Ml Vial 10 Ml INDWELLCAT 05/08/25 13:45 3,000 unit PRN PRN Administration DIALYSIS Albumin Human 25 gm in 100 mls @ 100 mls/min 04/24/25 11:52 Albuminar-25 Ivpb IV PRN PRN DIALYSIS Insulin Glargine 38 unit 04/13/25 09:00 04/25/25 09:39 Insulin Glargine (Lantus) 5 Unit/0.05 Ml (Per 5 Units) SC 05/13/25 08:59 38 unit QDAY KOURTNEY Administration Insulin Human Lispro 0 unit 04/13/25 00:00 04/26/25 05:11 Insulin Lispro (Admelog) 1 Unit/0.01 Ml Unit SC 05/13/25 00:00 Not Given Q6HR [facility] Protocol Lansoprazole 30 mg 04/14/25 21:00 04/25/25 20:49 Lansoprazole 30 Mg Tab.Rap.Dr DUARTE 05/13/25 08:59 30 mg BID KOURTNEY Administration Metoprolol Tartrate 100 mg 04/17/25 10:15 04/25/25 20:48 Metoprolol Tartrate 25 Mg Tablet GT 05/17/25 10:14 100 mg BID KOURTNEY Administration Ondansetron HCl 4 mg 04/12/25 23:27 04/17/25 05:28 Ondansetron Inj 2 Mg/Ml Inj 2 Ml IVP 05/12/25 23:26 4 mg Q6H PRN Administration NAUSEA OR VOMITING Protocol Pharmacy Consult 1 each 04/24/25 08:43 Pharmacy Renal Dose Adjustment 1 Ea XX 05/24/25 08:42 PRN PRN CONSULT Rivaroxaban 20 mg 04/19/25 09:00 04/24/25 21:19 Rivaroxaban 10 Mg Tablet PO 05/10/25 08:59 Not Given QDAY KOURTNEY Sodium Hypochlorite 473 ml 04/15/25 21:00 04/25/25 20:50 Sod Hypochlorite 1/4 Str 473 Ml Btl IRRIG 05/15/25 20:59 1 applicatio HS KOURTNEY Administration Zinc Sulfate 220 mg 04/18/25 09:00 04/25/25 09:39 Zinc Sulfate 220 Mg Capsule GT 05/18/25 08:59 220 mg QDAY KOURTNEY Administration Plan Assessment 64-year-old male with past medical history of DM2, hypertension, A-fib, and Jehova's witness was admitted to the ICU on 02/27/2025 for shock and acute on chronic hypoxic respiratory failure. He is s/p laparoscopic J-tube placement from [facility]. #Acute kidney injury-- seems to be in Ischemic ATN with minimal UOP #Hypermagnesemia, resolved History of stones, BPH: None Creatinine today 4.1, phosphorus 4.4, magnesium 2.6 Patient will likely need long-term dialysis as patient is currently in ischemic ATN Patient will need to go to LTAC as patient will need dialysis and mechanical ventilation 2 L of fluid removed yesterday during 2nd dialysis session Currently has Vas-Cath UOP minimal at this time FEUrea: 42 -> Intrinsic renal disease Hepatitis panel unremarkable in February 2025 Plan: ? Third dialysis session today ? Fuller catheter ? Avoid nephrotoxic agents ? Renally dose medicines ? Urea Urine and Cr ? Trend CMP and electrolytes ? PPD for outpatient dialysis #Right diastolic CHF #Decubitus ulcer #Chronic back pain #Jejunostomy tube #Acute on Chronic Hypoxic Hypercapnic Respiratory Failure #Obesity hypoventilation syndrome and obstructive sleep apnea #Tracheostomy #Hx of A-fib #Right internal jugular venous thrombosis #Right arm swelling #Morbid obesity #DM2 Above handled by primary hospitalist team Patient seen and care discussed with my attending physician, Dr. Teressa Shields, PGY-1 Attending Provider Attestation/Addendum Patient seen and examined with resident physician Dr. Salazar. Note reviewed, agree with findings and recommendations. Patient now with ischemic ATN with significant fluid overload and edema. Minimal urinary output despite diuretics. Currently with chronic hypoxic respiratory failure from right heart failure. Decided to proceed with dialysis. IR could not do permacatheter due to his body status-BMI 74. Requested ICU to place a Vas-Cath. Able to place IJ Vas-Cath. Patient consented with catheter and dialysis. He cannot come to local outpatient dialysis unit due to his morbid obesity, bedbound status. He needs to go to [place] [facility]. Hep panel, PPD ordered. 04/26/2025 patient currently seen in telemetry. Currently seen on dialysis. Third session Hemodialysis for 3.5 hours, Qb 250, 2K, ultrafiltration 1-2 L, Epogen 6000, no heparin ordered. Plan of care discussed with the dialysis nurse. Please see dialysis flowsheet for further details. Next dialysis scheduled for Tuesday. Patient needs to go to LTAC. Plan of care discussed with primary team-Dr. Lamas
--- NOTE | 2025-04-26 08:57 | PC.SS ---
Follow up note: Surgery today for debridement with Dr. Negrno. Pt is on IV antibiotic. Pt has temporary dialysis cath placed. Pt had dialysis yesterday and will have dialysis today. Pt is possible d/c to LTAC vs Subacute.
[2025-04-26] MEDS: EPOETIN ALFA-EPBX INJ 10,000 UNIT/ML VIAL (NON-ESRD) 10000 UNIT IV (09:16)
--- NOTE | 2025-04-26 11:05 | ESPR_ITS ---
Documentation for date of: 04/26/25 Subjective Subjective Interval history: Patient seen and examined at bedside. Patient is receiving hemodialysis, will have about 2.5 L removed, yesterday patient had 2 L removed by hemodialysis. Patient's fluid overload status is improving, patient was scheduled for for surgical debridement in the OR today, anesthesia requesting echocardiogram and improvement in fluid status. Will repeat chest x-ray on Tuesday a.m. to assess pleural effusion. Will continue management of fluid overload status otherwise. Patient otherwise has no signs of sepsis/infection, on mechanical ventilation, labs reviewed improvement in creatinine and GFR noted today. Patient continues to have urine output, will continue to monitor. Exam Vital Signs Temp Pulse Resp BP Pulse Ox O2 Del Method O2 Flow Rate 98.4 F 82 18 111/69 95 Mechanical Ventilation 65 04/26/25 11:04/26/25 11:00 04/26/25 11:01 04/26/25 11:00 04/26/25 11:01 04/26/25 08:00 04/26/25 11:01 FiO2 60 04/26/25 11:01 Narrative Exam Physical Exam General: Awake and in no acute distress. Tracheostomy site clean, on mechanical ventilation, nods to questions, responsive. HEENT: Normocephalic, atraumatic, mucous membranes moist. Heart: Irregular rhythm, rate controlled, no murmurs. Possible ejection systolic murmur. Lungs: Bilateral coarse crackles. Abdomen: Soft, obese, nondistended, nontender, positive bowel sounds. ?No guarding or rebound tenderness. Neurologic: Alert and oriented x3, no gross neurological deficit, and patient able to move all 4 extremities. Extremities: 3+ bilateral lower extremity edema, 3+ bilateral upper extremity edema. Skin: No rash or ecchymoses. Patient has sacral decubitus ulcer. Objective Labs 04/29/25 05:30 04/29/25 05:30 Labs: Laboratory Results - last 24 hr 04/25/25 04/26/25 16:30 04:38 WBC 8.8 RBC 3.17 L Hgb 8.9 L Hct 27.2 L MCV 86 MCH 28.1 MCHC 32.7 RDW Std Deviation 56.3 H Plt Count 305 D Neut % (Auto) 53 Lymph % (Auto) 25 [place] % (Auto) 17 H Eos % (Auto) 3 Baso % (Auto) 1 Neut # (Auto) 4.7 Lymph # (Auto) 2.2 [place] # (Auto) 1.5 H Eos # (Auto) 0.3 Baso # (Auto) 0.0 Immature Gran # (Auto) 0.08 H Absolute Nucleated RBC 0.00 Immature Gran % 1 H Nucleated RBC % 0 Sodium 140 Potassium 4.0 D Chloride 98 Carbon Dioxide 30.2 Anion Gap 12 BUN 59 H Creatinine 3.4 H D Estim Creat Clear Calc 37.0 L eGFR 19 L BUN/Creatinine Ratio 17 Glucose 97 Calculated Osmolality 295 Calcium 8.3 Corrected Calcium 8.9 Phosphorus 3.7 Magnesium 2.4 Total Bilirubin 0.4 AST 22 ALT 10 Alkaline Phosphatase 203 H Total Protein 5.6 L Albumin 3.2 L Globulin 2.4 Albumin/Globulin Ratio 1.3 Ur Random Creatinine 41 Ur Random Urea Nitrogn 300.0 L ABG Interpretation ABG results: 04/18/25 04/18/25 04/18/25 04:40 06:27 10:30 ABG pH 7.28 L 7.33 L 7.36 ABG pCO2 72 H* 67 H 61 H ABG pO2 132 H 60 L D 60 L ABG HCO3 34 H 35 H 34 H ABG O2 Saturation 100 H 93 93 ABG Base Excess 6 H 7 H 8 H 04/19/25 08:53 ABG pH 7.47 H D ABG pCO2 45 D ABG pO2 66 L ABG HCO3 33 H ABG O2 Saturation 96 ABG Base Excess 8 H Quality Measures Quality Measures VTE therapy Advance care planning discussed with:: patient Assessment & Plan Assessment Current Active Medications: Generic Name Dose Route Start Last Admin Trade Name Freq PRN Reason Stop Dose Admin Acetaminophen 650 mg 04/22/25 20:43 04/22/25 20:52 Acetaminophen 325 Mg Tablet PO 05/22/25 20:42 650 mg Q6HR PRN Administration pain and Fever >100.4 Amiodarone HCl 200 mg 04/13/25 09:00 04/25/25 09:44 Amiodarone Hcl 200 Mg Tablet GT 05/13/25 08:59 Not Given QDAY KOURTNEY Amlodipine Besylate 10 mg 04/13/25 09:00 04/25/25 09:44 Amlodipine Besylate 5 Mg Tablet GT 05/13/25 08:59 Not Given QDAY KOURTNEY Artificial Tears 0 drop 04/14/25 19:33 Artificial Tears 225 Drop/15 Ml Btl BOTH EYES 05/14/25 19:32 PRN PRN TO KEEP EYES MOIST Ascorbic Acid 500 mg 04/17/25 21:00 04/25/25 20:49 Ascorbic Acid 250 Mg Tablet GT 05/17/25 20:59 500 mg BID KOURTNEY Administration Bumetanide 2 mg 04/21/25 09:00 04/26/25 05:05 Bumetanide Inj 0.25 Mg/Ml Vial 4 Ml IVP 05/21/25 08:59 2 mg BIDD KOURTNEY Administration Dextrose 25 ml 04/12/25 23:32 04/24/25 05:27 Dextrose 50%-Water Inj 50 Ml Syringe IV 05/12/25 23:31 25 ml Q15MIN PRN Administration BG 50-70 responsive npo pt Dextrose 50 ml 04/12/25 23:32 Dextrose 50%-Water Inj 50 Ml Syringe IV 05/12/25 23:31 Q15MIN PRN BG <50 OR BG <70 & pt unresponsive Glucagon 1 mg 04/12/25 23:32 Glucagon Inj 1 Mg Vial IM Q15MIN PRN BG <70, and no IV access Heparin Sodium (Porcine) 3,000 unit 04/24/25 13:46 04/25/25 15:13 Heparin Sod Inj 1000 Unit/Ml Vial 10 Ml INDWELLCAT 05/08/25 13:45 3,000 unit PRN PRN Administration DIALYSIS Albumin Human 25 gm in 100 mls @ 100 mls/min 04/24/25 11:52 Albuminar-25 Ivpb IV PRN PRN DIALYSIS Insulin Glargine 38 unit 04/13/25 09:00 04/25/25 09:39 Insulin Glargine (Lantus) 5 Unit/0.05 Ml (Per 5 Units) SC 05/13/25 08:59 38 unit QDAY KOURTNEY Administration Insulin Human Lispro 0 unit 04/13/25 00:00 04/26/25 05:11 Insulin Lispro (Admelog) 1 Unit/0.01 Ml Unit SC 05/13/25 00:00 Not Given Q6HR KOURTNEY Protocol Lansoprazole 30 mg 04/14/25 21:00 04/25/25 20:49 Lansoprazole 30 Mg Tab.Rap.Dr DUARTE 05/13/25 08:59 30 mg BID KOURTNEY Administration Metoprolol Tartrate 100 mg 06/04/25 10:15 04/25/25 20:48 Metoprolol Tartrate 25 Mg Tablet GT 05/17/25 10:14 100 mg BID KOURTNEY Administration Ondansetron HCl 4 mg 04/12/25 23:27 04/17/25 05:28 Ondansetron Inj 2 Mg/Ml Inj 2 Ml IVP 05/12/25 23:26 4 mg Q6H PRN Administration NAUSEA OR VOMITING Protocol Pharmacy Consult 1 each 04/24/25 08:43 Pharmacy Renal Dose Adjustment 1 Ea XX 05/24/25 08:42 PRN PRN CONSULT Rivaroxaban 20 mg 04/19/25 09:00 04/24/25 21:19 Rivaroxaban 10 Mg Tablet PO 05/10/25 08:59 Not Given QDAY KOURTNEY Sodium Hypochlorite 473 ml 04/15/25 21:00 04/25/25 20:50 Sod Hypochlorite 1/4 Str 473 Ml Btl IRRIG 05/15/25 20:59 1 applicatio HS KOURTNEY Administration Zinc Sulfate 220 mg 04/18/25 09:00 04/25/25 09:39 Zinc Sulfate 220 Mg Capsule GT 05/18/25 08:59 220 mg QDAY KOURTNEY Administration Plan Assessment 64-year-old male with past medical history of DM2, hypertension, A-fib, and Jehova's witness was admitted to the ICU on 02/27/2025 for shock and acute hypoxic respiratory failure. He is s/p laparoscopic J-tube placement from [facility]. #Fluid overload #Acute on chronic hypoxic respiratory failure #Acute kidney injury-suspicion of ischemic ATN #Started on hemodialysis 04/24/2025, status post temporary dialysis catheter placement Patient looks clinically hypovolemic at this time 04/18-patient did receive x 1 dose of Bumex yesterday Patient's sodium is 143, it was 140 this morning. This happened after 500 cc NS, will increase water flushes rather than bolus b/c of concern for hypernatremia . 04/20 ? Attempt was made to place Fuller catheter however unable to pass catheter due to significant resistance and attempt was terminated. Discussed with nursing about possibility of weighing briefs daily. Patient had temporary hemodialysis catheter placed 04/24, receiving dialysis had 1 L removed on 04/24, 2 L on 04/25 Plan: -Patient receiving hemodialysis today, goal to remove 2.5 L fluid -Will continue IV Bumex 2 mg IV daily -Patient started on heparin 5000 every 8 hours for DVT prophylaxis -Monitor urine output -Avoid nephrotoxic agents -Renally dose medication #Decubitus ulcer #Chronic back pain Not requiring surgical intervention at this time Unstageable sacral ulcer Debridement bedside on 04/17/2025 Wound reassessed by wound care team and general surgeon on 04/24/2025 Per general surgery patient will likely need a debridement, scheduled for Tuesday Plan: - N.p.o. after midnight on Tuesday night - Scheduled for debridement in OR on Tuesday - Repeat echocardiogram ordered - Will reassess pleural effusion on Tuesday morning via chest x-ray - [place] 5 as needed - Skin barrier creams PRN - Referral to wound care #Right diastolic CHF # Fluid overload status Patient appears clinically dry at this point, will hold on diuresis at this time Plan: - Continue strict daily body weight - Daily weights - Strict I&O #Jejunostomy tube #Abdominal abscess Patient report said that there was an intra-abdominal abscess that have could have been from a perforated ulcer in the past See also note reviewed, mentions that patient likely had a marginal ulcer, but also was not seen on EGD without, currently patient has no abdominal tenderness and is totally asymptomatic. No current drain at this time Patient is status post laparoscopic J-tube placement and is currently on feeds Patient will continue to have this tube and will likely go to a long-term care facility with this until patient can swallow safely Plan: ? Completed antibiotic treatment. ? Monitor vitals closely #Aspiration Pneumonia, completed treatment #Obesity hypoventilation syndrome and obstructive sleep apnea #Dysphagia #Tracheostomy Patient was intubated and ventilated due to hypoxic respiratory failure, was unable to be extubated. Tracheostomy was placed. PEG tube was able to be placed, patient transferred to [facility] for laparoscopic J-tube placement, is now being transferred back after procedure successfully completed Plan: - Dietary consulted, recommendations appreciated - Respiratory therapy consulted - Blow-by during the day, mechanical ventilation at night as needed at baseline, currently on mechanical ventilation - Completed antibiotic treatment #Hx of A-fib [id number] score of 3 points indicating 3.2% risk of stroke per year HAS-BLED: 0 Currently rhythm controlled Plan: - Xarelto held in anticipation of surgery - Amiodarone 200 mg QDAY - Metoprolol succinate 100 twice daily - Keep potassium and magnesium above 4 and 2 respectively - Telemetry #Right internal jugular venous thrombosis #Right arm swelling Continuing free water flushes, patient has gone multiple days of heparin drip since 04/01 Plan: ? Xarelto 20 mg qday being held #Morbid obesity #DM2 A1C 7.6 on 03/05/2025 Patient has a BMI of 79.5->68.7 Plan: - ISS scale 2 - Hypoglycemia protocol ordered - 38 units of Lantus. #Health Maintenance Disposition: Telemetry DVT prophylaxis: Xarelto being held. GI prophylaxis: Protonix Diet: 2Cal Tube Feeds with 30 cc/hour water flush CODE STATUS: Full code Patient plan of care was discussed with the attending physician, Dr. Mccurdy. Elizabeth Lamas PGY1 Attending Provider Attestation/Addendum Face to face evaluation was performed by me. I have personally seen and examined the patient. I discussed the assessment and plan with the entire medicine team. I reviewed available medical records, imaging studies, laboratory results. I agree with the above subjective data, objective findings, assessment and plan except as corrected by me or noted below Respiratory failure, ventilator dependant R IJ venous thrombosis Chronic A Fiv Morbid Obesity Sacral- wound, poa, chronic Jejunostomy tube Abdominal abscess - HD per nephrology - Surgery on board, pending OR for decubitus ulcer - heparin drip- held for surgery- will resume and can hold prior to surgery. More than > 30 minutes spent on the encounter
[2025-04-26] MEDS: HEPARIN SOD INJ 1000 UNIT/ML VIAL 10 ML 3000 UNIT INDWELLCAT (11:14)
[2025-04-26] MEDS: AMIODARONE HCL 200 MG TABLET GT (12:24)
[2025-04-26] MEDS: ASCORBIC ACID 250 MG TABLET 500 MG GT ×2 (12:24→20:41)
[2025-04-26] MEDS: ZINC SULFATE 220 MG CAPSULE GT (12:25)
[2025-04-26] MEDS: METOPROLOL TARTRATE 25 MG TABLET 100 MG GT ×2 (12:26→20:40)
[2025-04-26] MEDS: LANSOPRAZOLE 30 MG TAB.RAP.DR GT ×2 (12:26→20:41)
--- NOTE | 2025-04-26 13:01 | PC.DIETICIAN ---
Nutrition recommendations: 1. TwoCal HN at 42 ml/hr x 24 hrs via J-tube by pump (goal). If no IV fluids, water flushes of 30 ml/hr (or per MD). *No need to check for residuals with jejunal feeds. 2. ProStat 30ml TID via J-tube. 3. Raji 1 pkt BID mixed with 6-8 oz water via J-tube (unflavored). 4. Vitamin C 500 mg BID, zinc sulfate 220 mg once daily for 14 days, multivit/minerals.
[2025-04-26] MEDS: HEPARIN SOD INJ 5000 UNIT/ML VIAL SC ×2 (14:20→21:08)
[2025-04-26] MEDS: SOD HYPOCHLORITE 1/4 STR 473 ML BTL IRRIG (20:41)
[2025-04-27] VITALS (16 sets, daily range): BP systolic 112–124; BP diastolic 74–88; PULSE 76–97; RESP 18–33; TEMP 36.2–37.2; O2SAT 91–96; BMI 70.6
[2025-04-27] MEDS: HEPARIN SOD INJ 5000 UNIT/ML VIAL SC (05:23)
[2025-04-27] MEDS: BUMETANIDE INJ 0.25 MG/ML VIAL 4 ML 2 MG IVP ×2 (05:23→18:10)
[2025-04-27 06:33] LABS: Basophils # (Auto) 0.1 Thou/mm3 (0.0-0.2); Basophils % (Auto) 1 % (0-2.5); Eosinophils # (Auto) 0.2 Thou/mm3 (0.0-0.5); Eosinophils % (Auto) 2 % (0-10); Hematocrit 28.7 % (41.0-53.0); Hemoglobin 9.4 g/dL (13.5-16.0); Immature Granulocytes Auto 0.09 Thou/mm3 (0.00-0.00); Lymphocytes # (Auto) 3.2 Thou/mm3 (1.0-4.8); Lymphocytes % (Auto) 29 % (10-50); Mean Corpuscular HGB Conc 32.8 g/dl (31.0-37.0); Mean Corpuscular Hemoglobin 28.7 pg (25.0-35.0); Mean Corpuscular Volume 88 fL (80-100); Monocytes # (Auto) 1.7 Thou/mm3 (0.0-0.8); Monocytes % (Auto) 16 % (0-12); Neutrophils # (Auto) 5.7 Thou/mm3 (1.8-7.7); Neutrophils % (Auto) 52 % (37-80); Nucleated Red Blood Cell # 0.00 Thou/mm3 (0.00-0.00); Nucleated Red Blood Cell % 0 /100 WBC (0); Platelet Count 296 Thou/mm3 (140-440); RDW Standard Deviation 57.5 fL (35.1-43.9); Red Blood Count 3.27 Miln/mm3 (4.50-5.90); White Blood Count 11.0 Thou/mm3 (3.8-10.6)
[2025-04-27 06:59] LABS: Alanine Aminotransferase 10 U/L (10-49); Albumin, Serum 3.3 gm/dL (3.4-4.8); Albumin/Globulin Ratio 1.3 (1.2-2.2); Alkaline Phosphatase 208 U/L (46-116); Anion Gap 13 (7-16); Aspartate Amino Transferase 27 U/L (0-34); BUN/Creatinine Ratio 17 Ratio (12-20); Bilirubin,Total 0.3 mg/dL (0.3-1.2); Blood Urea Nitrogen 52 mg/dL (9-23); Calcium 8.4 mg/dL (8.3-10.6); Calcium (Corrected) 9.0 mg/dL (8.5-10.1); Carbon Dioxide 29.1 mMol/L (20.0-31.0); Chloride 98 mMol/L (98-107); Creatinine (Component) 3.1 mg/dL (0.6-1.3); Estimated Creatinine Clearance 40.3 mL/min (>60); Globulin 2.5 gm/dL (2.3-3.5); Glucose 132 mg/dL (74-106); Magnesium 2.3 mg/dL (1.6-2.6); Osmolality,Calculated 295 (275-295); Phosphorous 3.4 mg/dL (2.4-5.1); Potassium 4.2 mMol/L (3.4-5.1); Sodium 140 mMol/L (136-145); Total Protein 5.8 gm/dL (5.7-8.2); eGFR 21 See Note
[2025-04-27] MEDS: AMIODARONE HCL 200 MG TABLET GT (09:33)
[2025-04-27] MEDS: ZINC SULFATE 220 MG CAPSULE GT (09:33)
[2025-04-27] MEDS: ASCORBIC ACID 250 MG TABLET 500 MG GT ×2 (09:34→20:44)
[2025-04-27] MEDS: METOPROLOL TARTRATE 25 MG TABLET 100 MG GT ×2 (09:34→20:44)
[2025-04-27] MEDS: INSULIN GLARGINE (Lantus) 5 UNIT/0.05 ML (PER 5 UNITS) 38 UNIT SC (09:34)
[2025-04-27] MEDS: LANSOPRAZOLE 30 MG TAB.RAP.DR GT ×2 (09:34→20:44)
[2025-04-27 11:34] LABS: INR 1.1 (0.9-1.3); Partial Thromboplastin Time 31.4 Seconds (22.0-36.0); Prothrombin Time 11.9 Seconds (9.0-12.2)
--- NOTE | 2025-04-27 11:44 | PD.RESPRO ---
Documentation for date of: 04/27/25 Subjective Subjective Interval history: 04/20/2025 patient currently seen in telemetry. On vent. S/p trach, J-tube. Blood pressure 124/83, heart rate 88. Hemoglobin 9.5, platelets 427. Sodium 133, potassium 4.4, bicarbonate 28, BUN 49, creatinine 2.9, calcium 9.4, phosphorus 2.5, magnesium 2.6, LFTs normal, albumin 3.1 x-ray showed, diffuse right lung pneumonia and a possible right pleural fluid. 04/24/2025: Pt examined at bedside today. No acute overnight events. Pt to get IR dialysis catheter today, and to start dialysis afterwards. Pt is agreeable and is wondering when he is going to get his catheter. Currently on mechanical ventilation and not on blow-by at this time. BUN/Cr 90 and 4.4 respectively, potassium 4.9, sodium 138, magnesium 2.8. No other complaints at this time. 04/25/2025: Patient examined at bedside today. Currently on mechanical ventilation. Had dialysis yesterday. Patient's BUN/creatinine 77 and 4.1 respectively, magnesium 2.6, phosphorus 1.4, calcium 4.6. Patient will get second dialysis session today. Patient will require LTAC likely in [place] due to patient being on mechanical ventilation. Patient is usually on mechanical ventilation at night, blow-by during the day, however he has been requiring mechanical ventilation during the day. 04/26/2025: Patient examined bedside today no acute overnight events. Currently on mechanical ventilation. Had dialysis yesterday, will get 1 more dialysis session today. Patient's BUN/creatinine 59 and 3.4 respectively, calcium 8.9, phosphorus 3.7, magnesium 2.4. Patient to get debridement of sacral wound today by general surgery. Patient will likely be on dialysis schedule Tuesday moving forward. 04/27/2025: Patient examined at bedside today. No acute overnight events. Patient continues on mechanical ventilation. Patient was a bit sleepy when examined. Patient to get next [place] session on Tuesday. Patient's BUN/creatinine today 52 and 3.1 respectively, urine output 850 mL, white count 11, hemoglobin 9.4,, potassium 4.2, magnesium 2.3, phosphorus 3.4. No other complaints this time Exam Vital Signs Temp Pulse Resp BP Pulse Ox O2 Del Method O2 Flow Rate 97.8 F 88 27 H 118/78 93 L Mechanical Ventilation 65 04/27/25 08:00 04/27/25 09:34 04/27/25 08:00 04/27/25 09:34 04/27/25 08:00 04/27/25 08:00 04/27/25 04:00 FiO2 100 04/27/25 07:13 Narrative Exam General: AAOx3, lying down, severely morbidly obese HEENT: Dry mucous membranes, conjunctiva clear, EOMI, PERRLA, trachestomy Cardiovascular: Ejection systolic murmur, radial pulses +2 bilat, irregularly irregular, Pulmonary: Currently on mechanical ventilation and not blow-by GI: No tenderness to light or deep palpitation, no guarding, rigidity, rebound tenderness or distension, J-tube present Extremities: Trace edema in lower extremities bilaterally, dorsalis pedis pulses +2 bilaterally, Back: Decubitis ulcer, no bone visualization Neuro: AAOx3, no focal motor or sensory deficits in the UE or LE bilat Objective Labs 04/28/25 05:50 04/28/25 05:50 Labs: Laboratory Results - last 24 hr 04/27/25 04:55 WBC 11.0 H RBC 3.27 L Hgb 9.4 L Hct 28.7 L MCV 88 MCH 28.7 MCHC 32.8 RDW Std Deviation 57.5 H Plt Count 296 Neut % (Auto) 52 Lymph % (Auto) 29 [place] % (Auto) 16 H Eos % (Auto) 2 Baso % (Auto) 1 Neut # (Auto) 5.7 Lymph # (Auto) 3.2 [place] # (Auto) 1.7 H Eos # (Auto) 0.2 Baso # (Auto) 0.1 Immature Gran # (Auto) 0.09 H Absolute Nucleated RBC 0.00 Immature Gran % 1 H Nucleated RBC % 0 Sodium 140 Potassium 4.2 Chloride 98 Carbon Dioxide 29.1 Anion Gap 13 BUN 52 H Creatinine 3.1 H Estim Creat Clear Calc 40.3 L eGFR 21 L BUN/Creatinine Ratio 17 Glucose 132 H Calculated Osmolality 295 Calcium 8.4 Corrected Calcium 9.0 Phosphorus 3.4 Magnesium 2.3 Total Bilirubin 0.3 AST 27 ALT 10 Alkaline Phosphatase 208 H Total Protein 5.8 Albumin 3.3 L Globulin 2.5 Albumin/Globulin Ratio 1.3 ABG Interpretation ABG results: 04/18/25 04/18/25 04/18/25 04:40 06:27 10:30 ABG pH 7.28 L 7.33 L 7.36 ABG pCO2 72 H* 67 H 61 H ABG pO2 132 H 60 L D 60 L ABG HCO3 34 H 35 H 34 H ABG O2 Saturation 100 H 93 93 ABG Base Excess 6 H 7 H 8 H 04/19/25 08:53 ABG pH 7.47 H D ABG pCO2 45 D ABG pO2 66 L ABG HCO3 33 H ABG O2 Saturation 96 ABG Base Excess 8 H Quality Measures Quality Measures VTE therapy Advance care planning discussed with:: patient Assessment & Plan Assessment Current Active Medications: Generic Name Dose Route Start Last Admin Trade Name Freq PRN Reason Stop Dose Admin Acetaminophen 650 mg 04/22/25 20:43 04/22/25 20:52 Acetaminophen 325 Mg Tablet PO 05/22/25 20:42 650 mg Q6HR PRN Administration pain and Fever >100.4 Amiodarone HCl 200 mg 04/13/25 09:00 04/27/25 09:33 Amiodarone Hcl 200 Mg Tablet GT 05/13/25 08:59 200 mg QDAY KOURTNEY Administration Amlodipine Besylate 10 mg 04/13/25 09:00 04/27/25 09:33 Amlodipine Besylate 5 Mg Tablet GT 05/13/25 08:59 10 mg QDAY KOURTNEY Administration Artificial Tears 0 drop 04/14/25 19:33 Artificial Tears 225 Drop/15 Ml Btl BOTH EYES 05/14/25 19:32 PRN PRN TO KEEP EYES MOIST Ascorbic Acid 500 mg 04/17/25 21:00 04/27/25 09:34 Ascorbic Acid 250 Mg Tablet GT 05/17/25 20:59 500 mg BID KOURTNEY Administration Bumetanide 2 mg 04/21/25 09:00 04/27/25 05:23 Bumetanide Inj 0.25 Mg/Ml Vial 4 Ml IVP 05/21/25 08:59 2 mg BIDD KOURTNEY Administration Dextrose 25 ml 04/12/25 23:32 04/24/25 05:27 Dextrose 50%-Water Inj 50 Ml Syringe IV 05/12/25 23:31 25 ml Q15MIN PRN Administration BG 50-70 responsive npo pt Dextrose 50 ml 04/12/25 23:32 Dextrose 50%-Water Inj 50 Ml Syringe IV 05/12/25 23:31 Q15MIN PRN BG <50 OR BG <70 & pt unresponsive Glucagon 1 mg 04/12/25 23:32 Glucagon Inj 1 Mg Vial IM Q15MIN PRN BG <70, and no IV access Heparin Sodium (Porcine) 3,000 unit 04/24/25 13:46 04/26/25 11:14 Heparin Sod Inj 1000 Unit/Ml Vial 10 Ml INDWELLCAT 05/08/25 13:45 3,000 unit PRN PRN Administration DIALYSIS Albumin Human 25 gm in 100 mls @ 100 mls/min 04/24/25 11:52 Albuminar-25 Ivpb IV PRN PRN DIALYSIS Heparin Sodium/Dextrose 25,000 unit in 250 mls @ 18 mls/hr 04/27/25 10:00 Heparin In D5w Ivpb IV 05/11/25 09:59 .[id number] [facility] Protocol 8.8184 UNITS/KG/HR Insulin Glargine 38 unit 04/13/25 09:00 04/27/25 09:34 Insulin Glargine (Lantus) 5 Unit/0.05 Ml (Per 5 Units) SC 05/13/25 08:59 38 unit QDAY KOURTNEY Administration Insulin Human Lispro 0 unit 04/13/25 00:00 04/27/25 05:23 Insulin Lispro (Admelog) 1 Unit/0.01 Ml Unit SC 05/13/25 00:00 Not Given Q6HR [facility] Protocol Lansoprazole 30 mg 04/14/25 21:00 04/27/25 09:34 Lansoprazole 30 Mg Tab.Rap. GT 05/13/25 08:59 30 mg BID KOURTNEY Administration Metoprolol Tartrate 100 mg 04/17/25 10:15 04/27/25 09:34 Metoprolol Tartrate 25 Mg Tablet GT 05/17/25 10:14 100 mg BID KOURTNEY Administration Ondansetron HCl 4 mg 04/12/25 23:27 04/17/25 05:28 Ondansetron Inj 2 Mg/Ml Inj 2 Ml IVP 05/12/25 23:26 4 mg Q6H PRN Administration NAUSEA OR VOMITING Protocol Pharmacy Consult 1 each 04/24/25 08:43 Pharmacy Renal Dose Adjustment 1 Ea XX 05/24/25 08:42 PRN PRN CONSULT Rivaroxaban 20 mg 04/19/25 09:00 04/24/25 21:19 Rivaroxaban 10 Mg Tablet PO 05/10/25 08:59 Not Given QDAY KOURTNEY Sodium Hypochlorite 473 ml 04/15/25 21:00 04/26/25 20:41 Sod Hypochlorite 1/4 Str 473 Ml Btl IRRIG 05/15/25 20:59 1 applicatio HS KOURTNEY Administration Zinc Sulfate 220 mg 04/18/25 09:00 04/27/25 09:33 Zinc Sulfate 220 Mg Capsule GT 05/18/25 08:59 220 mg QDAY KOURTNEY Administration Plan Assessment 64-year-old male with past medical history of DM2, hypertension, A-fib, and Jehova's witness was admitted to the ICU on 02/27/2025 for shock and acute on chronic hypoxic respiratory failure. He is s/p laparoscopic J-tube placement from [facility]. #Acute kidney injury-- seems to be in Ischemic ATN with minimal UOP #Hypermagnesemia, resolved History of stones, BPH: None Creatinine today 3.1, phosphorus 3.4, magnesium 2.3 Patient will likely need long-term dialysis as patient is currently in ischemic ATN Patient will need to go to LTAC as patient will need dialysis and mechanical ventilation Currently has Vas-Cath UOP: 1745 mL FEUrea: 42 -> Intrinsic renal disease Hepatitis panel unremarkable in February 2025 2L removed yesterday during dialysis Pt to be on MWF dialysis schedule Plan: ? Fuller catheter ? Avoid nephrotoxic agents ? Renally dose medicines ? Trend CMP and electrolytes ? PPD for outpatient dialysis #Right diastolic CHF #Decubitus ulcer #Chronic back pain #Jejunostomy tube #Acute on Chronic Hypoxic Hypercapnic Respiratory Failure #Obesity hypoventilation syndrome and obstructive sleep apnea #Tracheostomy #Hx of A-fib #Right internal jugular venous thrombosis #Right arm swelling #Morbid obesity #DM2 Above handled by primary hospitalist team Patient seen and care discussed with my attending physician, Dr. Teressa Shields, PGY-1 Attending Provider Attestation/Addendum Patient seen and examined with resident physician Dr. Salazar. Note reviewed, agree with findings and recommendations. Patient now with ischemic ATN with significant fluid overload and edema. Minimal urinary output despite diuretics. Currently with chronic hypoxic respiratory failure from right heart failure. Decided to proceed with dialysis. IR could not do permacatheter due to his body status-BMI 74. Requested ICU to place a Vas-Cath. Able to place IJ Vas-Cath. Patient consented with catheter and dialysis. He cannot come to local outpatient dialysis unit due to his morbid obesity, bedbound status. He needs to go to [facility]. Hep panel, PPD ordered. 04/27/2025 patient currently seen in telemetry. Resting comfortably. Edema markedly improved. Will be going for debridement on Tuesday. Next dialysis scheduled for Tuesday. Patient needs to go to LTAC. Plan of care discussed with primary team-Dr. Lamas
[2025-04-27] MEDS: Heparin/D5w 25K 250 ML Ivpb 25,000 UNIT/250 ML BAG 18 UNIT IV (12:27)
--- NOTE | 2025-04-27 13:18 | PD.RESPRO ---
Documentation for date of: 04/27/25 Subjective Subjective Interval history: Patient seen and examined at bedside. Patient will be started on heparin GTT for right IJ thrombus treatment, Xarelto is being held. Will hold heparin drip at midnight on Tuesday, patient scheduled for surgical debridement of sacral wound in OR on Tuesday. Otherwise patient is stable, nephrology is following, improvement in creatinine noted. Patient had urine output of about 1200 cc in the last 24 hours. Will repeat chest x-ray on Tuesday morning, echocardiogram ordered pending Exam Vital Signs Temp Pulse Resp BP Pulse Ox O2 Del Method O2 Flow Rate 97.5 F 79 18 112/77 95 Mechanical Ventilation 65 04/27/25 12:04/27/25 12:04/27/25 12:04/27/25 12:04/27/25 12:04/27/25 12:04/27/25 04:00 FiO2 80 04/27/25 12:01 Narrative Exam Physical Exam General: Awake and in no acute distress. Tracheostomy site clean, on mechanical ventilation, nods to questions, responsive. HEENT: Normocephalic, atraumatic, mucous membranes moist. Heart: Irregular rhythm, rate controlled, no murmurs. Possible ejection systolic murmur. Lungs: Bilateral coarse crackles. Abdomen: Soft, obese, nondistended, nontender, positive bowel sounds. ?No guarding or rebound tenderness. Neurologic: Alert and oriented x3, no gross neurological deficit, and patient able to move all 4 extremities. Extremities: 1+ bilateral lower extremity edema, 1+ edema right upper extremity. Skin: No rash or ecchymoses. Patient has sacral decubitus ulcer. Objective Labs 04/29/25 05:30 04/29/25 05:30 Labs: Laboratory Results - last 24 hr 04/27/25 04/27/25 04:55 10:37 WBC 11.0 H RBC 3.27 L Hgb 9.4 L Hct 28.7 L MCV 88 MCH 28.7 MCHC 32.8 RDW Std Deviation 57.5 H Plt Count 296 Neut % (Auto) 52 Lymph % (Auto) 29 [place] % (Auto) 16 H Eos % (Auto) 2 Baso % (Auto) 1 Neut # (Auto) 5.7 Lymph # (Auto) 3.2 [place] # (Auto) 1.7 H Eos # (Auto) 0.2 Baso # (Auto) 0.1 Immature Gran # (Auto) 0.09 H Absolute Nucleated RBC 0.00 Immature Gran % 1 H Nucleated RBC % 0 PT 11.9 INR 1.1 APTT 31.4 D Sodium 140 Potassium 4.2 Chloride 98 Carbon Dioxide 29.1 Anion Gap 13 BUN 52 H Creatinine 3.1 H Estim Creat Clear Calc 40.3 L eGFR 21 L BUN/Creatinine Ratio 17 Glucose 132 H Calculated Osmolality 295 Calcium 8.4 Corrected Calcium 9.0 Phosphorus 3.4 Magnesium 2.3 Total Bilirubin 0.3 AST 27 ALT 10 Alkaline Phosphatase 208 H Total Protein 5.8 Albumin 3.3 L Globulin 2.5 Albumin/Globulin Ratio 1.3 ABG Interpretation ABG results: 04/18/25 04/18/25 04/18/25 04:40 06:27 10:30 ABG pH 7.28 L 7.33 L 7.36 ABG pCO2 72 H* 67 H 61 H ABG pO2 132 H 60 L D 60 L ABG HCO3 34 H 35 H 34 H ABG O2 Saturation 100 H 93 93 ABG Base Excess 6 H 7 H 8 H 04/19/25 08:53 ABG pH 7.47 H D ABG pCO2 45 D ABG pO2 66 L ABG HCO3 33 H ABG O2 Saturation 96 ABG Base Excess 8 H Quality Measures Quality Measures VTE therapy Advance care planning discussed with:: patient Assessment & Plan Assessment Current Active Medications: Generic Name Dose Route Start Last Admin Trade Name Freq PRN Reason Stop Dose Admin Acetaminophen 650 mg 04/22/25 20:43 04/22/25 20:52 Acetaminophen 325 Mg Tablet PO 05/22/25 20:42 650 mg Q6HR PRN Administration pain and Fever >100.4 Amiodarone HCl 200 mg 04/13/25 09:00 04/27/25 09:33 Amiodarone Hcl 200 Mg Tablet GT 05/13/25 08:59 200 mg QDAY KOURTNEY Administration Amlodipine Besylate 10 mg 04/13/25 09:00 04/27/25 09:33 Amlodipine Besylate 5 Mg Tablet GT 05/13/25 08:59 10 mg QDAY KOURTNEY Administration Artificial Tears 0 drop 04/14/25 19:33 Artificial Tears 225 Drop/15 Ml Btl BOTH EYES 05/14/25 19:32 PRN PRN TO KEEP EYES MOIST Ascorbic Acid 500 mg 04/17/25 21:00 04/27/25 09:34 Ascorbic Acid 250 Mg Tablet GT 05/17/25 20:59 500 mg BID KOURTNEY Administration Bumetanide 2 mg 04/21/25 09:00 04/27/25 05:23 Bumetanide Inj 0.25 Mg/Ml Vial 4 Ml IVP 05/21/25 08:59 2 mg BIDD KOURTNEY Administration Dextrose 25 ml 04/12/25 23:32 04/24/25 05:27 Dextrose 50%-Water Inj 50 Ml Syringe IV 05/12/25 23:31 25 ml Q15MIN PRN Administration BG 50-70 responsive npo pt Dextrose 50 ml 04/12/25 23:32 Dextrose 50%-Water Inj 50 Ml Syringe IV 05/12/25 23:31 Q15MIN PRN BG <50 OR BG <70 & pt unresponsive Glucagon 1 mg 04/12/25 23:32 Glucagon Inj 1 Mg Vial IM Q15MIN PRN BG <70, and no IV access Heparin Sodium (Porcine) 3,000 unit 04/24/25 13:46 04/26/25 11:14 Heparin Sod Inj 1000 Unit/Ml Vial 10 Ml INDWELLCAT 05/08/25 13:45 3,000 unit PRN PRN Administration DIALYSIS Albumin Human 25 gm in 100 mls @ 100 mls/min 04/24/25 11:52 Albuminar-25 Ivpb IV PRN PRN DIALYSIS Heparin Sodium/Dextrose 25,000 unit in 250 mls @ 18 mls/hr 04/27/25 10:00 04/27/25 12:27 Heparin In D5w Ivpb IV 05/11/25 09:59 8.8184 units/kg/hr .[id number] KOURTNEY 18 mls/hr Administration Protocol 8.8184 UNITS/KG/HR Insulin Glargine 38 unit 04/13/25 09:00 04/27/25 09:34 Insulin Glargine (Lantus) 5 Unit/0.05 Ml (Per 5 Units) SC 05/13/25 08:59 38 unit QDAY KOURTNEY Administration Insulin Human Lispro 0 unit 04/13/25 00:00 04/27/25 13:09 Insulin Lispro (Admelog) 1 Unit/0.01 Ml Unit SC 05/13/25 00:00 Not Given Q6HR KOURTNEY Protocol Lansoprazole 30 mg 04/14/25 21:00 04/27/25 09:34 Lansoprazole 30 Mg Tab. GT 05/13/25 08:59 30 mg BID KOURTNEY Administration Metoprolol Tartrate 100 mg 04/17/25 10:15 04/27/25 09:34 Metoprolol Tartrate 25 Mg Tablet GT 05/17/25 10:14 100 mg BID KOURTNEY Administration Ondansetron HCl 4 mg 04/12/25 23:27 04/17/25 05:28 Ondansetron Inj 2 Mg/Ml Inj 2 Ml IVP 05/12/25 23:26 4 mg Q6H PRN Administration NAUSEA OR VOMITING Protocol Pharmacy Consult 1 each 04/24/25 08:43 Pharmacy Renal Dose Adjustment 1 Ea XX 05/24/25 08:42 PRN PRN CONSULT Rivaroxaban 20 mg 04/19/25 09:00 04/24/25 21:19 Rivaroxaban 10 Mg Tablet PO 05/10/25 08:59 Not Given QDAY KOURTNEY Sodium Hypochlorite 473 ml 04/15/25 21:00 04/26/25 20:41 Sod Hypochlorite 1/4 Str 473 Ml Btl IRRIG 05/15/25 20:59 1 applicatio HS KOURTNEY Administration Zinc Sulfate 220 mg 04/18/25 09:00 04/27/25 09:33 Zinc Sulfate 220 Mg Capsule GT 05/18/25 08:59 220 mg QDAY KOURTNEY Administration Plan Assessment 64-year-old male with past medical history of DM2, hypertension, A-fib, and Jehova's witness was admitted to the ICU on 02/27/2025 for shock and acute hypoxic respiratory failure. He is s/p laparoscopic J-tube placement from [facility]. #Fluid overload #Acute on chronic hypoxic respiratory failure #Acute kidney injury-suspicion of ischemic ATN #Started on hemodialysis 04/24/2025, status post temporary dialysis catheter placement Patient looks clinically hypovolemic at this time 04/18-patient did receive x 1 dose of Bumex yesterday Patient's sodium is 143, it was 140 this morning. This happened after 500 cc NS, will increase water flushes rather than bolus b/c of concern for hypernatremia . 04/20 ? Attempt was made to place Fuller catheter however unable to pass catheter due to significant resistance and attempt was terminated. Discussed with nursing about possibility of weighing briefs daily. Patient had temporary hemodialysis catheter placed 04/24, receiving dialysis had 1 L removed on 04/24, 2 L on 04/25, 2.14 on 04/26 Plan: -Will continue IV Bumex 2 mg IV daily - Started on heparin gtt., will hold on Tuesday -Monitor urine output -Avoid nephrotoxic agents -Renally dose medication #Decubitus ulcer #Chronic back pain Not requiring surgical intervention at this time Unstageable sacral ulcer Debridement bedside on 04/17/2025 Wound reassessed by wound care team and general surgeon on 04/24/2025 Per general surgery patient will likely need a debridement, scheduled for Tuesday Plan: - N.p.o. after midnight on Tuesday night - Scheduled for debridement in OR on Tuesday - Repeat echocardiogram ordered - Heparin GTT, will be held on Tuesday - Will reassess pleural effusion on Tuesday morning via chest x-ray - [place] 5 as needed - Skin barrier creams PRN - Referral to wound care #Right diastolic CHF # Fluid overload status, resolving Patient appears clinically dry at this point, will hold on diuresis at this time Plan: - Continue strict daily body weight - Daily weights - Strict I&O #Jejunostomy tube #Abdominal abscess Patient report said that there was an intra-abdominal abscess that have could have been from a perforated ulcer in the past See also note reviewed, mentions that patient likely had a marginal ulcer, but also was not seen on EGD without, currently patient has no abdominal tenderness and is totally asymptomatic. No current drain at this time Patient is status post laparoscopic J-tube placement and is currently on feeds Patient will continue to have this tube and will likely go to a long-term care facility with this until patient can swallow safely Plan: ? Completed antibiotic treatment. ? Monitor vitals closely #Aspiration Pneumonia, completed treatment #Obesity hypoventilation syndrome and obstructive sleep apnea #Dysphagia #Tracheostomy Patient was intubated and ventilated due to hypoxic respiratory failure, was unable to be extubated. Tracheostomy was placed. PEG tube was able to be placed, patient transferred to [facility] for laparoscopic J-tube placement, is now being transferred back after procedure successfully completed Plan: - Dietary consulted, recommendations appreciated - Respiratory therapy consulted - Blow-by during the day, mechanical ventilation at night as needed at baseline, currently on mechanical ventilation - Completed antibiotic treatment #Hx of A-fib [id number] score of 3 points indicating 3.2% risk of stroke per year HAS-BLED: 0 Currently rhythm controlled Plan: - Xarelto held in anticipation of surgery - Heparin GTT - Amiodarone 200 mg QDAY - Metoprolol succinate 100 twice daily - Keep potassium and magnesium above 4 and 2 respectively - Telemetry #Right internal jugular venous thrombosis #Right arm swelling Continuing free water flushes, patient has gone multiple days of heparin drip since 04/01 Plan: ? Xarelto 20 mg qday being held - Heparin GTT #Morbid obesity #DM2 A1C 7.6 on 03/05/2025 Patient has a BMI of 79.5->68.7 Plan: - ISS scale 2 - Hypoglycemia protocol ordered - 38 units of Lantus. #Health Maintenance Disposition: Telemetry DVT prophylaxis: Xarelto being held, heparin drip. GI prophylaxis: Protonix Diet: 2Cal Tube Feeds with 30 cc/hour water flush CODE STATUS: Full code Patient plan of care was discussed with the attending physician, Dr. Mccurdy. Elizabeth Lamas PGY1 Attending Provider Attestation/Addendum Face to face evaluation was performed by me. I have personally seen and examined the patient. I discussed the assessment and plan with the entire medicine team. I reviewed available medical records, imaging studies, laboratory results. I agree with the above subjective data, objective findings, assessment and plan except as corrected by me or noted below Respiratory failure, ventilator dependant R IJ venous thrombosis Chronic A Fiv Morbid Obesity Sacral- wound, poa, chronic Jejunostomy tube Abdominal abscess - HD per nephrology - Surgery on board, pending OR for decubitus ulcer- repeat CXR Tuesday - heparin drip- held for surgery- will resume and can hold prior to surgery.
[2025-04-27 18:47] LABS: Partial Thromboplastin Time 46.0 Seconds (22.0-36.0)
[2025-04-27] MEDS: HEPARIN SOD INJ 5000 UNIT/ML VIAL 4000 UNIT IVP (20:43)
[2025-04-27] MEDS: SOD HYPOCHLORITE 1/4 STR 473 ML BTL IRRIG (21:00)
[2025-04-28] VITALS (16 sets, daily range): BP systolic 111–128; BP diastolic 75–84; PULSE 78–96; RESP 15–34; TEMP 36.1–36.6; O2SAT 93–98; BMI 71.4
[2025-04-28] MEDS: Heparin/D5w 25K 250 ML Ivpb 25,000 UNIT/250 ML BAG 22.081 UNIT IV ×2 (02:30→15:20)
[2025-04-28 03:12] LABS: Partial Thromboplastin Time 64.5 Seconds (22.0-36.0)
[2025-04-28] MEDS: BUMETANIDE INJ 0.25 MG/ML VIAL 4 ML 2 MG IVP ×2 (05:52→17:40)
[2025-04-28 06:21] LABS: Basophils # (Auto) 0.1 Thou/mm3 (0.0-0.2); Basophils % (Auto) 1 % (0-2.5); Eosinophils # (Auto) 0.5 Thou/mm3 (0.0-0.5); Eosinophils % (Auto) 4 % (0-10); Hematocrit 29.0 % (41.0-53.0); Hemoglobin 9.1 g/dL (13.5-16.0); Immature Granulocytes Auto 0.13 Thou/mm3 (0.00-0.00); Lymphocytes # (Auto) 3.5 Thou/mm3 (1.0-4.8); Lymphocytes % (Auto) 32 % (10-50); Mean Corpuscular HGB Conc 31.4 g/dl (31.0-37.0); Mean Corpuscular Hemoglobin 27.9 pg (25.0-35.0); Mean Corpuscular Volume 89 fL (80-100); Monocytes # (Auto) 1.5 Thou/mm3 (0.0-0.8); Monocytes % (Auto) 14 % (0-12); Neutrophils # (Auto) 5.4 Thou/mm3 (1.8-7.7); Neutrophils % (Auto) 49 % (37-80); Nucleated Red Blood Cell # 0.00 Thou/mm3 (0.00-0.00); Nucleated Red Blood Cell % 0 /100 WBC (0); Platelet Count 326 Thou/mm3 (140-440); RDW Standard Deviation 56.7 fL (35.1-43.9); Red Blood Count 3.26 Miln/mm3 (4.50-5.90); White Blood Count 11.1 Thou/mm3 (3.8-10.6)
[2025-04-28 07:04] LABS: Alanine Aminotransferase 11 U/L (10-49); Albumin, Serum 3.3 gm/dL (3.4-4.8); Albumin/Globulin Ratio 1.4 (1.2-2.2); Alkaline Phosphatase 205 U/L (46-116); Anion Gap 11 (7-16); Aspartate Amino Transferase 22 U/L (0-34); BUN/Creatinine Ratio 17 Ratio (12-20); Bilirubin,Total 0.3 mg/dL (0.3-1.2); Blood Urea Nitrogen 59 mg/dL (9-23); Calcium 8.4 mg/dL (8.3-10.6); Calcium (Corrected) 9.0 mg/dL (8.5-10.1); Carbon Dioxide 31.4 mMol/L (20.0-31.0); Chloride 97 mMol/L (98-107); Creatinine (Component) 3.4 mg/dL (0.6-1.3); Estimated Creatinine Clearance 37.0 mL/min (>60); Globulin 2.4 gm/dL (2.3-3.5); Glucose 135 mg/dL (74-106); Osmolality,Calculated 296 (275-295); Potassium 4.1 mMol/L (3.4-5.1); Sodium 139 mMol/L (136-145); Total Protein 5.7 gm/dL (5.7-8.2); eGFR 19 See Note
[2025-04-28] MEDS: METOPROLOL TARTRATE 25 MG TABLET 100 MG GT ×2 (10:06→20:22)
[2025-04-28] MEDS: LANSOPRAZOLE 30 MG TAB.RAP.DR GT ×2 (10:06→20:25)
[2025-04-28] MEDS: ASCORBIC ACID 250 MG TABLET 500 MG GT ×2 (10:07→20:22)
[2025-04-28] MEDS: ZINC SULFATE 220 MG CAPSULE GT (10:07)
[2025-04-28] MEDS: AMIODARONE HCL 200 MG TABLET GT (10:07)
[2025-04-28] MEDS: INSULIN GLARGINE (Lantus) 5 UNIT/0.05 ML (PER 5 UNITS) 38 UNIT SC (10:08)
[2025-04-28 10:17] LABS: Partial Thromboplastin Time 64.5 Seconds (22.0-36.0)
--- NOTE | 2025-04-28 11:59 | PD.NEPHPROG ---
Documentation for date of: 04/28/25 Subjective Subjective Interval history: Mr. Ortega is a 64-year-old male with a past medical history of type 2 diabetes mellitus, history of ATN, A-fib, hypertension, severe right-sided heart failure, HFpEF, severe BASIA, status post tracheostomy and jejunostomy, patient was previously admitted here for hypoxic respiratory failure requiring mechanical ventilation, was later transferred out to [facility] for jejunostomy tube placement, complicated by abdominal abscess, patient is now transferred back to [facility] for further management. The patient is noted to have pneumonia and acute hypoxic respiratory failure, requiring mechanical ventilation, nephrology was consulted as patient's renal function continues to worsen. Patient had previously required hemodialysis for ATN, but is a poor dialysis candidate outpatient. Patient noted to have significant fluid overload. Team gave 1 dose of Bumex with mild worsening of renal function. 500 cc bolus was given. Renal consultation requested for worsening renal failure in the setting of fluid overload. 04/26/2025: Patient examined bedside today no acute overnight events. Currently on mechanical ventilation. Had dialysis yesterday, will get 1 more dialysis session today. Patient's BUN/creatinine 59 and 3.4 respectively, calcium 8.9, phosphorus 3.7, magnesium 2.4. Patient to get debridement of sacral wound today by general surgery. Patient will likely be on dialysis schedule Tuesday moving forward. 04/27/2025: Patient examined at bedside today. No acute overnight events. Patient continues on mechanical ventilation. Patient was a bit sleepy when examined. Patient to get next [place] session on Tuesday. Patient's BUN/creatinine today 52 and 3.1 respectively, urine output 850 mL, white count 11, hemoglobin 9.4,, potassium 4.2, magnesium 2.3, phosphorus 3.4. No other complaints this time 04/28/2025 patient resting comfortably. Denies any chest pain. Labs reviewed. Hold dialysis today Review of Systems Review of Systems Narrative Review of Systems: . Patient denies any chest pain, shortness of breath. Exam Vital Signs Temp Pulse Resp BP Pulse Ox O2 Del Method O2 Flow Rate 36.6 C 83 24 H 128/84 93 L Mechanical Ventilation 65 04/28/25 08:00 04/28/25 11:14 04/28/25 08:00 04/28/25 10:07 04/28/25 11:14 04/28/25 08:00 04/28/25 08:00 FiO2 60 04/28/25 11:14 Narrative Exam GENERAL APPEARANCE: Patient seems to be comfortable, adequately hydrated and nourished. HEENT: status post trach NECK: Neck supple, no JVD or bruit CARDIOVASCULAR: Heart regular, no murmurs LUNGS/CHEST: Chest clear to auscultation. No rales, rhonchi, wheezing ABDOMEN: Soft, s/p PEG EXTREMITIES: 2+ edema in the lower EXTR SKIN: Wound in the buttock MUSCULOSKELETAL: In bed NEUROLOGICAL : Alert and awake Objective Labs 04/28/25 05:50 04/28/25 05:50 Labs: Laboratory Results - last 24 hr 04/27/25 04/28/25 04/28/25 18:11 01:50 05:50 WBC 11.1 H RBC 3.26 L Hgb 9.1 L Hct 29.0 L MCV 89 MCH 27.9 MCHC 31.4 RDW Std Deviation 56.7 H Plt Count 326 D Neut % (Auto) 49 Lymph % (Auto) 32 [place] % (Auto) 14 H Eos % (Auto) 4 Baso % (Auto) 1 Neut # (Auto) 5.4 Lymph # (Auto) 3.5 [place] # (Auto) 1.5 H Eos # (Auto) 0.5 Baso # (Auto) 0.1 Immature Gran # (Auto) 0.13 H Absolute Nucleated RBC 0.00 Immature Gran % 1 H Nucleated RBC % 0 APTT 46.0 H D 64.5 H D Sodium 139 Potassium 4.1 Chloride 97 L Carbon Dioxide 31.4 H Anion Gap 11 BUN 59 H Creatinine 3.4 H Estim Creat Clear Calc 37.0 L eGFR 19 L BUN/Creatinine Ratio 17 Glucose 135 H Calculated Osmolality 296 H Calcium 8.4 Corrected Calcium 9.0 Total Bilirubin 0.3 AST 22 ALT 11 Alkaline Phosphatase 205 H Total Protein 5.7 Albumin 3.3 L Globulin 2.4 Albumin/Globulin Ratio 1.4 04/28/25 09:26 WBC RBC Hgb Hct MCV MCH MCHC RDW Std Deviation Plt Count Neut % (Auto) Lymph % (Auto) [place] % (Auto) Eos % (Auto) Baso % (Auto) Neut # (Auto) Lymph # (Auto) [place] # (Auto) Eos # (Auto) Baso # (Auto) Immature Gran # (Auto) Absolute Nucleated RBC Immature Gran % Nucleated RBC % APTT 64.5 H Sodium Potassium Chloride Carbon Dioxide Anion Gap BUN Creatinine Estim Creat Clear Calc eGFR BUN/Creatinine Ratio Glucose Calculated Osmolality Calcium Corrected Calcium Total Bilirubin AST ALT Alkaline Phosphatase Total Protein Albumin Globulin Albumin/Globulin Ratio ABG Interpretation ABG results: 04/18/25 04/18/25 04/18/25 04:40 06:27 10:30 ABG pH 7.28 L 7.33 L 7.36 ABG pCO2 72 H* 67 H 61 H ABG pO2 132 H 60 L D 60 L ABG HCO3 34 H 35 H 34 H ABG O2 Saturation 100 H 93 93 ABG Base Excess 6 H 7 H 8 H 04/19/25 08:53 ABG pH 7.47 H D ABG pCO2 45 D ABG pO2 66 L ABG HCO3 33 H ABG O2 Saturation 96 ABG Base Excess 8 H Assessment & Plan Assessment and plan (1) KENIA (acute kidney injury): Status: Acute (2) CHF (congestive heart failure): Status: Acute (3) Atrial fibrillation: Status: Acute (4) Respiratory failure: Status: Acute (5) Pneumonia: Status: Acute Additional Assessment & Plan Additional Plan: Patient seen and examined with resident physician Dr. Salazar. Note reviewed, agree with findings and recommendations. Patient now with ischemic ATN with significant fluid overload and edema. Minimal urinary output despite diuretics. Currently with chronic hypoxic respiratory failure from right heart failure. Decided to proceed with dialysis. IR could not do permacatheter due to his body status-BMI 74. Requested ICU to place a Vas-Cath. Able to place IJ Vas-Cath. Patient consented with catheter and dialysis. He cannot come to local outpatient dialysis unit due to his morbid obesity, bedbound status. He needs to go to [facility]. Hep panel, PPD negative 04/28/2025 patient currently seen in telemetry. Resting comfortably. Edema markedly improved. Will be going for debridement on Tuesday. Next dialysis scheduled for Tuesday. Patient needs to go to LTAC. Plan of care discussed with primary team-Dr. Lamas (2) CHF (congestive heart failure) Qualifiers: Heart failure chronicity: chronic Heart failure type: right-sided Qualified Code(s): I50.812 - Chronic right heart failure (3) Atrial fibrillation Qualifiers: Atrial fibrillation type: unspecified Qualified Code(s): I48.91 - Unspecified atrial fibrillation
--- NOTE | 2025-04-28 14:04 | PD.RESPRO ---
Documentation for date of: 04/28/25 Subjective Subjective Interval history: No acute events overnight.?Patient seen and examined at bedside this AM.?Patient will have tube feeds held and heparin drip held at midnight for surgery, planned for sacral wound debridement with Dr. Negron. Dialysis to be scheduled early tomorrow morning prior to surgery. Labs and vitals were reviewed.?No further complaints at this time. Review of systems otherwise negative except what is mentioned above. Exam Vital Signs Temp Pulse Resp BP Pulse Ox O2 Del Method O2 Flow Rate 97.9 F 83 24 H 128/84 93 L Mechanical Ventilation 65 04/28/25 08:00 04/28/25 11:14 04/28/25 08:00 04/28/25 10:07 04/28/25 11:14 04/28/25 08:00 04/28/25 08:00 FiO2 60 04/28/25 11:14 Narrative Exam Physical Exam General: Awake and in no acute distress. Tracheostomy site clean, on mechanical ventilation, nods to questions, responsive. HEENT: Normocephalic, atraumatic, mucous membranes moist. Heart: Irregular rhythm, rate controlled, no murmurs. Possible ejection systolic murmur. Lungs: Bilateral coarse crackles. Abdomen: Soft, obese, nondistended, nontender, positive bowel sounds. ?No guarding or rebound tenderness. Neurologic: Alert and oriented x3, no gross neurological deficit, and patient able to move all 4 extremities. Extremities: 1+ bilateral lower extremity edema, 1+ edema right upper extremity. Skin: No rash or ecchymoses. Patient has sacral decubitus ulcer. Objective Labs 04/29/25 05:30 04/29/25 05:30 Labs: Laboratory Results - last 24 hr 04/27/25 04/28/25 04/28/25 18:11 01:50 05:50 WBC 11.1 H RBC 3.26 L Hgb 9.1 L Hct 29.0 L MCV 89 MCH 27.9 MCHC 31.4 RDW Std Deviation 56.7 H Plt Count 326 D Neut % (Auto) 49 Lymph % (Auto) 32 [place] % (Auto) 14 H Eos % (Auto) 4 Baso % (Auto) 1 Neut # (Auto) 5.4 Lymph # (Auto) 3.5 [place] # (Auto) 1.5 H Eos # (Auto) 0.5 Baso # (Auto) 0.1 Immature Gran # (Auto) 0.13 H Absolute Nucleated RBC 0.00 Immature Gran % 1 H Nucleated RBC % 0 APTT 46.0 H D 64.5 H D Sodium 139 Potassium 4.1 Chloride 97 L Carbon Dioxide 31.4 H Anion Gap 11 BUN 59 H Creatinine 3.4 H Estim Creat Clear Calc 37.0 L eGFR 19 L BUN/Creatinine Ratio 17 Glucose 135 H Calculated Osmolality 296 H Calcium 8.4 Corrected Calcium 9.0 Total Bilirubin 0.3 AST 22 ALT 11 Alkaline Phosphatase 205 H Total Protein 5.7 Albumin 3.3 L Globulin 2.4 Albumin/Globulin Ratio 1.4 04/28/25 09:26 WBC RBC Hgb Hct MCV MCH MCHC RDW Std Deviation Plt Count Neut % (Auto) Lymph % (Auto) [place] % (Auto) Eos % (Auto) Baso % (Auto) Neut # (Auto) Lymph # (Auto) [place] # (Auto) Eos # (Auto) Baso # (Auto) Immature Gran # (Auto) Absolute Nucleated RBC Immature Gran % Nucleated RBC % APTT 64.5 H Sodium Potassium Chloride Carbon Dioxide Anion Gap BUN Creatinine Estim Creat Clear Calc eGFR BUN/Creatinine Ratio Glucose Calculated Osmolality Calcium Corrected Calcium Total Bilirubin AST ALT Alkaline Phosphatase Total Protein Albumin Globulin Albumin/Globulin Ratio ABG Interpretation ABG results: 04/18/25 04/18/25 04/18/25 04:40 06:27 10:30 ABG pH 7.28 L 7.33 L 7.36 ABG pCO2 72 H* 67 H 61 H ABG pO2 132 H 60 L D 60 L ABG HCO3 34 H 35 H 34 H ABG O2 Saturation 100 H 93 93 ABG Base Excess 6 H 7 H 8 H 04/19/25 08:53 ABG pH 7.47 H D ABG pCO2 45 D ABG pO2 66 L ABG HCO3 33 H ABG O2 Saturation 96 ABG Base Excess 8 H Quality Measures Quality Measures VTE therapy Advance care planning discussed with:: patient Assessment & Plan Assessment Current Active Medications: Generic Name Dose Route Start Last Admin Trade Name Freq PRN Reason Stop Dose Admin Acetaminophen 650 mg 04/22/25 20:43 04/22/25 20:52 Acetaminophen 325 Mg Tablet PO 05/22/25 20:42 650 mg Q6HR PRN Administration pain and Fever >100.4 Amiodarone HCl 200 mg 04/13/25 09:00 04/28/25 10:07 Amiodarone Hcl 200 Mg Tablet GT 05/13/25 08:59 200 mg QDAY KOURTNEY Administration Amlodipine Besylate 10 mg 04/13/25 09:00 04/28/25 10:07 Amlodipine Besylate 5 Mg Tablet GT 05/13/25 08:59 10 mg QDAY KOURTNEY Administration Artificial Tears 0 drop 04/14/25 19:33 Artificial Tears 225 Drop/15 Ml Btl BOTH EYES 05/14/25 19:32 PRN PRN TO KEEP EYES MOIST Ascorbic Acid 500 mg 04/17/25 21:00 04/28/25 10:07 Ascorbic Acid 250 Mg Tablet GT 05/17/25 20:59 500 mg BID KOURTNEY Administration Bumetanide 2 mg 04/21/25 09:00 04/28/25 05:52 Bumetanide Inj 0.25 Mg/Ml Vial 4 Ml IVP 05/21/25 08:59 2 mg BIDD KOURTNEY Administration Dextrose 25 ml 04/12/25 23:32 04/24/25 05:27 Dextrose 50%-Water Inj 50 Ml Syringe IV 05/12/25 23:31 25 ml Q15MIN PRN Administration BG 50-70 responsive npo pt Dextrose 50 ml 04/12/25 23:32 Dextrose 50%-Water Inj 50 Ml Syringe IV 05/12/25 23:31 Q15MIN PRN BG <50 OR BG <70 & pt unresponsive Glucagon 1 mg 04/12/25 23:32 Glucagon Inj 1 Mg Vial IM Q15MIN PRN BG <70, and no IV access Heparin Sodium (Porcine) 3,000 unit 04/24/25 13:46 04/26/25 11:14 Heparin Sod Inj 1000 Unit/Ml Vial 10 Ml INDWELLCAT 05/08/25 13:45 3,000 unit PRN PRN Administration DIALYSIS Albumin Human 25 gm in 100 mls @ 100 mls/min 04/24/25 11:52 Albuminar-25 Ivpb IV PRN PRN DIALYSIS Heparin Sodium/Dextrose 25,000 unit in 250 mls @ 18 mls/hr 04/27/25 10:00 04/28/25 10:33 Heparin In D5w Ivpb IV 05/11/25 09:59 10.818 units/kg/hr .[id number] KOURTNEY 22.081 mls/hr Titration Protocol 8.8184 UNITS/KG/HR Insulin Glargine 38 unit 04/13/25 09:00 04/28/25 10:08 Insulin Glargine (Lantus) 5 Unit/0.05 Ml (Per 5 Units) SC 05/13/25 08:59 38 unit QDAY KOURTNEY Administration Insulin Human Lispro 0 unit 04/13/25 00:00 04/28/25 11:46 Insulin Lispro (Admelog) 1 Unit/0.01 Ml Unit SC 05/13/25 00:00 Not Given Q6HR [facility] Protocol Lansoprazole 30 mg 04/14/25 21:00 04/28/25 10:06 Lansoprazole 30 Mg Tab.Rap. GT 05/13/25 08:59 30 mg BID KOURTNEY Administration Metoprolol Tartrate 100 mg 04/17/25 10:15 04/28/25 10:06 Metoprolol Tartrate 25 Mg Tablet GT 05/17/25 10:14 100 mg BID KOURTNEY Administration Ondansetron HCl 4 mg 04/12/25 23:27 04/17/25 05:28 Ondansetron Inj 2 Mg/Ml Inj 2 Ml IVP 05/12/25 23:26 4 mg Q6H PRN Administration NAUSEA OR VOMITING Protocol Pharmacy Consult 1 each 04/24/25 08:43 Pharmacy Renal Dose Adjustment 1 Ea XX 05/24/25 08:42 PRN PRN CONSULT Rivaroxaban 20 mg 04/19/25 09:00 04/24/25 21:19 Rivaroxaban 10 Mg Tablet PO 05/10/25 08:59 Not Given QDAY KOURTNEY Sodium Hypochlorite 473 ml 04/15/25 21:00 04/27/25 21:00 Sod Hypochlorite 1/4 Str 473 Ml Btl IRRIG 05/15/25 20:59 1 applicatio HS KOURTNEY Administration Zinc Sulfate 220 mg 04/18/25 09:00 04/28/25 10:07 Zinc Sulfate 220 Mg Capsule GT 05/18/25 08:59 220 mg QDAY KOURTNEY Administration Plan Assessment 64-year-old male with past medical history of DM2, hypertension, A-fib, and Jehova's witness was admitted to the ICU on 02/27/2025 for shock and acute hypoxic respiratory failure. He is s/p laparoscopic J-tube placement from [facility]. #Fluid overload #Acute on chronic hypoxic respiratory failure #Acute kidney injury-suspicion of ischemic ATN #Started on hemodialysis 04/24/2025, status post temporary dialysis catheter placement Patient looks clinically hypovolemic at this time 04/18-patient did receive x 1 dose of Bumex yesterday Patient's sodium is 143, it was 140 this morning. This happened after 500 cc NS, will increase water flushes rather than bolus b/c of concern for hypernatremia . 04/20 ? Attempt was made to place Fuller catheter however unable to pass catheter due to significant resistance and attempt was terminated. Discussed with nursing about possibility of weighing briefs daily. Patient had temporary hemodialysis catheter placed 04/24, receiving dialysis had 1 L removed on 04/24, 2 L on 04/25, 2.14 on 04/26 Plan: -Will continue IV Bumex 2 mg IV daily - Started on heparin gtt., will hold on Tuesday -Monitor urine output -Avoid nephrotoxic agents -Renally dose medication #Decubitus ulcer #Chronic back pain Not requiring surgical intervention at this time Unstageable sacral ulcer Debridement bedside on 04/17/2025 Wound reassessed by wound care team and general surgeon on 04/24/2025 Per general surgery patient will likely need a debridement, scheduled for Tuesday Plan: - N.p.o. after midnight on Tuesday night - Scheduled for debridement in OR on Tuesday - Repeat echocardiogram ordered - Heparin GTT, will be held on Tuesdaynight - Will reassess pleural effusion on Tuesday morning via chest x-ray - [place] 5 as needed - Skin barrier creams PRN - Referral to wound care #Right diastolic CHF # Fluid overload status, resolving Patient appears clinically dry at this point, will hold on diuresis at this time Plan: - Continue strict daily body weight - Daily weights - Strict I&O #Jejunostomy tube #Abdominal abscess Patient report said that there was an intra-abdominal abscess that have could have been from a perforated ulcer in the past See also note reviewed, mentions that patient likely had a marginal ulcer, but also was not seen on EGD without, currently patient has no abdominal tenderness and is totally asymptomatic. No current drain at this time Patient is status post laparoscopic J-tube placement and is currently on feeds Patient will continue to have this tube and will likely go to a long-term care facility with this until patient can swallow safely Plan: ? Completed antibiotic treatment. ? Monitor vitals closely #Aspiration Pneumonia, completed treatment #Obesity hypoventilation syndrome and obstructive sleep apnea #Dysphagia #Tracheostomy Patient was intubated and ventilated due to hypoxic respiratory failure, was unable to be extubated. Tracheostomy was placed. PEG tube was able to be placed, patient transferred to [facility] for laparoscopic J-tube placement, is now being transferred back after procedure successfully completed Plan: - Dietary consulted, recommendations appreciated - Respiratory therapy consulted - Blow-by during the day, mechanical ventilation at night as needed at baseline, currently on mechanical ventilation - Completed antibiotic treatment #Hx of A-fib [id number] score of 3 points indicating 3.2% risk of stroke per year HAS-BLED: 0 Currently rhythm controlled Plan: - Xarelto held in anticipation of surgery - Heparin GTT - Amiodarone 200 mg QDAY - Metoprolol succinate 100 twice daily - Keep potassium and magnesium above 4 and 2 respectively - Telemetry #Right internal jugular venous thrombosis #Right arm swelling Continuing free water flushes, patient has gone multiple days of heparin drip since 04/01 Plan: ? Xarelto 20 mg qday being held - Heparin GTT #Morbid obesity #DM2 A1C 7.6 on 03/05/2025 Patient has a BMI of 79.5->68.7 Plan: - ISS scale 2 - Hypoglycemia protocol ordered - 38 units of Lantus. #Health Maintenance Disposition: Telemetry DVT prophylaxis: Xarelto being held, heparin drip. GI prophylaxis: Protonix Diet: 2Cal Tube Feeds with 30 cc/hour water flush CODE STATUS: Full code Patient plan of care was discussed with the attending physician, Dr. Mccurdy. Evi Betts PGY2 Attending Provider Attestation/Addendum Face to face evaluation was performed by me. I have personally seen and examined the patient. I discussed the assessment and plan with the entire medicine team. I reviewed available medical records, imaging studies, laboratory results. I agree with the above subjective data, objective findings, assessment and plan except as corrected by me or noted below Respiratory failure, ventilator dependant R IJ venous thrombosis Chronic A Fiv Morbid Obesity Sacral- wound, poa, chronic Jejunostomy tube Abdominal abscess - Continue with HD per nephrology - Surgery on board, pending OR for decubitus ulcer - heparin drip, can hold prior to surgery. - Monitor BP, contnue meds as ordered
[2025-04-28 16:38] LABS: Partial Thromboplastin Time 52.6 Seconds (22.0-36.0)
[2025-04-28] MEDS: SOD HYPOCHLORITE 1/4 STR 473 ML BTL IRRIG (21:45)
[2025-04-29] VITALS (33 sets, daily range): BP systolic 94–134; BP diastolic 63–84; PULSE 53–94; RESP 11–27; TEMP 36.1–36.8; O2SAT 92–100; BMI 70.6
--- NOTE | 2025-04-29 05:00 | XR_ITS ---
Examination: AP chest single view Technique one AP portable semiupright chest single view Date and time: April 29, 2025 0522 hours Comparison April 24, 2025 INDICATIONS: Preop FINDINGS: Tracheostomy tube tip 5 cm above nunu Left internal jugular dialysis catheter tip SVC Mildly large cardiac contour Prominent vascular congestion Pleural and parenchymal disease right hemithorax IMPRESSION: Tracheostomy tube and left internal jugular dialysis catheter satisfactory position Prominent vascular congestion Pneumonia and layered pleural disease right hemithorax
[2025-04-29] MEDS: BUMETANIDE INJ 0.25 MG/ML VIAL 4 ML 2 MG IVP ×2 (05:35→17:48)
[2025-04-29 05:57] LABS: Basophils # (Auto) 0.1 Thou/mm3 (0.0-0.2); Basophils % (Auto) 1 % (0-2.5); Eosinophils # (Auto) 0.4 Thou/mm3 (0.0-0.5); Eosinophils % (Auto) 4 % (0-10); Hematocrit 30.0 % (41.0-53.0); Hemoglobin 9.5 g/dL (13.5-16.0); Immature Granulocytes Auto 0.12 Thou/mm3 (0.00-0.00); Lymphocytes # (Auto) 3.6 Thou/mm3 (1.0-4.8); Lymphocytes % (Auto) 33 % (10-50); Mean Corpuscular HGB Conc 31.7 g/dl (31.0-37.0); Mean Corpuscular Hemoglobin 28.4 pg (25.0-35.0); Mean Corpuscular Volume 90 fL (80-100); Monocytes # (Auto) 1.5 Thou/mm3 (0.0-0.8); Monocytes % (Auto) 14 % (0-12); Neutrophils # (Auto) 5.2 Thou/mm3 (1.8-7.7); Neutrophils % (Auto) 48 % (37-80); Nucleated Red Blood Cell # 0.00 Thou/mm3 (0.00-0.00); Nucleated Red Blood Cell % 0 /100 WBC (0); Platelet Count 350 Thou/mm3 (140-440); RDW Standard Deviation 56.5 fL (35.1-43.9); Red Blood Count 3.34 Miln/mm3 (4.50-5.90); White Blood Count 11.0 Thou/mm3 (3.8-10.6)
[2025-04-29 06:11] LABS: INR 1.0 (0.9-1.3); Partial Thromboplastin Time 29.1 Seconds (22.0-36.0); Prothrombin Time 11.4 Seconds (9.0-12.2)
--- NOTE | 2025-04-29 08:50 | PC.NURSE ---
Pt. currently getting dialysis in room.
--- NOTE | 2025-04-29 08:53 | PC.NURSE ---
Vu from Echo coming to perform Echo for procedure
--- NOTE | 2025-04-29 09:37 | ESPR_ITS ---
Documentation for date of: 04/29/25 Subjective Subjective Interval history: 04/20/2025 patient currently seen in telemetry. On vent. S/p trach, J-tube. Blood pressure 124/83, heart rate 88. Hemoglobin 9.5, platelets 427. Sodium 133, potassium 4.4, bicarbonate 28, BUN 49, creatinine 2.9, calcium 9.4, phosphorus 2.5, magnesium 2.6, LFTs normal, albumin 3.1 x-ray showed, diffuse right lung pneumonia and a possible right pleural fluid. 04/24/2025: Pt examined at bedside today. No acute overnight events. Pt to get IR dialysis catheter today, and to start dialysis afterwards. Pt is agreeable and is wondering when he is going to get his catheter. Currently on mechanical ventilation and not on blow-by at this time. BUN/Cr 90 and 4.4 respectively, potassium 4.9, sodium 138, magnesium 2.8. No other complaints at this time. 04/25/2025: Patient examined at bedside today. Currently on mechanical ventilation. Had dialysis yesterday. Patient's BUN/creatinine 77 and 4.1 respectively, magnesium 2.6, phosphorus 1.4, calcium 4.6. Patient will get second dialysis session today. Patient will require LTAC likely in [place] due to patient being on mechanical ventilation. Patient is usually on mechanical ventilation at night, blow-by during the day, however he has been requiring mechanical ventilation during the day. 04/26/2025: Patient examined bedside today no acute overnight events. Currently on mechanical ventilation. Had dialysis yesterday, will get 1 more dialysis session today. Patient's BUN/creatinine 59 and 3.4 respectively, calcium 8.9, phosphorus 3.7, magnesium 2.4. Patient to get debridement of sacral wound today by general surgery. Patient will likely be on dialysis schedule Tuesday moving forward. 04/27/2025: Patient examined at bedside today. No acute overnight events. Patient continues on mechanical ventilation. Patient was a bit sleepy when examined. Patient to get next [facility] session on Tuesday. Patient's BUN/creatinine today 52 and 3.1 respectively, urine output 850 mL, white count 11, hemoglobin 9.4,, potassium 4.2, magnesium 2.3, phosphorus 3.4. No other complaints this time 04/29/2025: Patient examined at bedside today. No acute overnight events. Pending electrolyte labs. White count 11, hemoglobin 9.5, urine output 2114 milliliters. Patient currently in dialysis currently, goal fluid removal 2.1 L. Currently on mechanical ventilation. Pt to get debridement of sacral wound today. No complaints this time. Exam Vital Signs Temp Pulse Resp BP Pulse Ox O2 Del Method O2 Flow Rate 97.4 F 86 23 H 116/81 94 L Mechanical Ventilation 65 04/29/25 08:14 04/29/25 09:30 04/29/25 08:14 04/29/25 09:30 04/29/25 08:14 04/29/25 08:00 04/29/25 08:14 FiO2 60 04/29/25 08:14 Narrative Exam General: AAOx3, lying down, severely morbidly obese, getting dialysis currently HEENT: Dry mucous membranes, conjunctiva clear, EOMI, PERRLA, trachestomy Cardiovascular: Ejection systolic murmur, radial pulses +2 bilat, irregularly irregular, Pulmonary: Currently on mechanical ventilation and not blow-by GI: No tenderness to light or deep palpitation, no guarding, rigidity, rebound tenderness or distension, J-tube present Extremities: Trace edema in lower extremities bilaterally, dorsalis pedis pulses +2 bilaterally, Back: Decubitis ulcer, no bone visualization Neuro: AAOx3, no focal motor or sensory deficits in the UE or LE bilat Objective Labs 04/30/25 04:47 04/30/25 04:47 Labs: Laboratory Results - last 24 hr 04/28/25 04/28/25 04/29/25 09:26 15:37 05:30 WBC 11.0 H RBC 3.34 L Hgb 9.5 L Hct 30.0 L MCV 90 MCH 28.4 MCHC 31.7 RDW Std Deviation 56.5 H Plt Count 350 Neut % (Auto) 48 Lymph % (Auto) 33 [place] % (Auto) 14 H Eos % (Auto) 4 Baso % (Auto) 1 Neut # (Auto) 5.2 Lymph # (Auto) 3.6 [place] # (Auto) 1.5 H Eos # (Auto) 0.4 Baso # (Auto) 0.1 Immature Gran # (Auto) 0.12 H Absolute Nucleated RBC 0.00 Immature Gran % 1 H Nucleated RBC % 0 PT 11.4 INR 1.0 APTT 64.5 H 52.6 H D 29.1 D ABG Interpretation ABG results: 04/18/25 04/18/25 04/18/25 04:40 06:27 10:30 ABG pH 7.28 L 7.33 L 7.36 ABG pCO2 72 H* 67 H 61 H ABG pO2 132 H 60 L D 60 L ABG HCO3 34 H 35 H 34 H ABG O2 Saturation 100 H 93 93 ABG Base Excess 6 H 7 H 8 H 04/19/25 08:53 ABG pH 7.47 H D ABG pCO2 45 D ABG pO2 66 L ABG HCO3 33 H ABG O2 Saturation 96 ABG Base Excess 8 H Quality Measures Quality Measures VTE therapy Advance care planning discussed with:: patient Assessment & Plan Assessment Current Active Medications: Generic Name Dose Route Start Last Admin Trade Name Freq PRN Reason Stop Dose Admin Acetaminophen 650 mg 04/22/25 20:43 04/22/25 20:52 Acetaminophen 325 Mg Tablet PO 05/22/25 20:42 650 mg Q6HR PRN Administration pain and Fever >100.4 Amiodarone HCl 200 mg 04/13/25 09:00 04/29/25 09:21 Amiodarone Hcl 200 Mg Tablet GT 05/13/25 08:59 Not Given QDAY KOURTNEY Amlodipine Besylate 10 mg 04/13/25 09:00 04/29/25 09:21 Amlodipine Besylate 5 Mg Tablet GT 05/13/25 08:59 Not Given QDAY KOURTNEY Artificial Tears 0 drop 04/14/25 19:33 Artificial Tears 225 Drop/15 Ml Btl BOTH EYES 05/14/25 19:32 PRN PRN TO KEEP EYES MOIST Ascorbic Acid 500 mg 04/17/25 21:00 04/29/25 09:21 Ascorbic Acid 250 Mg Tablet GT 05/17/25 20:59 Not Given BID KOURTNEY Bumetanide 2 mg 04/21/25 09:00 04/29/25 05:35 Bumetanide Inj 0.25 Mg/Ml Vial 4 Ml IVP 05/21/25 08:59 2 mg BIDD KOURTNEY Administration Dextrose 25 ml 04/12/25 23:32 04/24/25 05:27 Dextrose 50%-Water Inj 50 Ml Syringe IV 05/12/25 23:31 25 ml Q15MIN PRN Administration BG 50-70 responsive npo pt Dextrose 50 ml 04/12/25 23:32 Dextrose 50%-Water Inj 50 Ml Syringe IV 05/12/25 23:31 Q15MIN PRN BG <50 OR BG <70 & pt unresponsive Glucagon 1 mg 04/12/25 23:32 Glucagon Inj 1 Mg Vial IM Q15MIN PRN BG <70, and no IV access Heparin Sodium (Porcine) 3,000 unit 04/24/25 13:46 04/26/25 11:14 Heparin Sod Inj 1000 Unit/Ml Vial 10 Ml INDWELLCAT 05/08/25 13:45 3,000 unit PRN PRN Administration DIALYSIS Albumin Human 25 gm in 100 mls @ 100 mls/min 04/24/25 11:52 Albuminar-25 Ivpb IV PRN PRN DIALYSIS Heparin Sodium/Dextrose 25,000 unit in 250 mls @ 18 mls/hr 04/27/25 10:00 04/28/25 18:03 Heparin In D5w Ivpb IV 05/11/25 09:59 10.82 units/kg/hr .[id number] [facility] 22.081 mls/hr Titration Protocol 8.8184 UNITS/KG/HR Insulin Glargine 38 unit 04/13/25 09:00 04/29/25 09:21 Insulin Glargine (Lantus) 5 Unit/0.05 Ml (Per 5 Units) SC 05/13/25 08:59 Not Given QDAY [facility] Insulin Human Lispro 0 unit 04/13/25 00:00 04/29/25 05:34 Insulin Lispro (Admelog) 1 Unit/0.01 Ml Unit SC 05/13/25 00:00 Not Given Q6HR [facility] Protocol Lansoprazole 30 mg 04/14/25 21:00 04/29/25 09:21 Lansoprazole 30 Mg Tab.Rap. GT 05/13/25 08:59 Not Given BID [facility] Metoprolol Tartrate 100 mg 04/17/25 10:15 04/29/25 09:22 Metoprolol Tartrate 25 Mg Tablet GT 05/17/25 10:14 Not Given BID [facility] Ondansetron HCl 4 mg 04/12/25 23:27 04/17/25 05:28 Ondansetron Inj 2 Mg/Ml Inj 2 Ml IVP 05/12/25 23:26 4 mg Q6H PRN Administration NAUSEA OR VOMITING Protocol Pharmacy Consult 1 each 04/24/25 08:43 Pharmacy Renal Dose Adjustment 1 Ea XX 05/24/25 08:42 PRN PRN CONSULT Sodium Hypochlorite 473 ml 04/15/25 21:00 04/28/25 21:45 Sod Hypochlorite 1/4 Str 473 Ml Btl IRRIG 05/15/25 20:59 1 applicatio HS KOURTNEY Administration Zinc Sulfate 220 mg 04/18/25 09:00 04/29/25 09:22 Zinc Sulfate 220 Mg Capsule GT 05/18/25 08:59 Not Given QDAY KOURTNEY Plan Assessment 64-year-old male with past medical history of DM2, hypertension, A-fib, and Jehova's witness was admitted to the ICU on 02/27/2025 for shock and acute on chronic hypoxic respiratory failure. He is s/p laparoscopic J-tube placement from [facility]. #Acute kidney injury-- seems to be in Ischemic ATN #Hypermagnesemia, resolved Pending CMP Patient will likely need long-term dialysis as patient is currently in ischemic ATN Patient will need to go to LTAC as patient will need dialysis and mechanical ventilation Currently has Vas-Cath UOP: 2110 mL Hepatitis panel unremarkable in February 2025 2.1 L goal fluid removal during dialysis today Pt to be on MWF dialysis schedule Plan: ? Fuller catheter ? Avoid nephrotoxic agents ? Renally dose medicines ? Trend CMP and electrolytes ? Dialysis today, 2.1 L goal removal #Right diastolic CHF #Decubitus ulcer #Chronic back pain #Jejunostomy tube #Acute on Chronic Hypoxic Hypercapnic Respiratory Failure #Obesity hypoventilation syndrome and obstructive sleep apnea #Tracheostomy #Hx of A-fib #Right internal jugular venous thrombosis #Right arm swelling #Morbid obesity #DM2 Above handled by primary hospitalist team Patient seen and care discussed with my attending physician, Dr. Teressa Shields, PGY-1 Attending Provider Attestation/Addendum Patient Patient seen and examined with resident physician Dr. Salazar. Note reviewed, agree with findings and recommendations. Patient currently seen on dialysis. Tolerating dialysis without any problems. Hemodialysis for 3 hours, 2K, ultrafiltration 2-3 L, Epogen 6000, no heparin ordered. Plan of care discussed with the dialysis nurse. Please see dialysis flowsheet for further details. Care discussed with primary team
[2025-04-29 10:49] LABS: Alanine Aminotransferase 12 U/L (10-49); Albumin, Serum 3.1 gm/dL (3.4-4.8); Albumin/Globulin Ratio 1.4 (1.2-2.2); Alkaline Phosphatase 189 U/L (46-116); Anion Gap 8 (7-16); Aspartate Amino Transferase 21 U/L (0-34); BUN/Creatinine Ratio 22 Ratio (12-20); Bilirubin,Total 0.3 mg/dL (0.3-1.2); Blood Urea Nitrogen 78 mg/dL (9-23); Calcium 8.3 mg/dL (8.3-10.6); Calcium (Corrected) 9.0 mg/dL (8.5-10.1); Carbon Dioxide 33.0 mMol/L (20.0-31.0); Chloride 98 mMol/L (98-107); Creatinine (Component) 3.5 mg/dL (0.6-1.3); Estimated Creatinine Clearance 35.7 mL/min (>60); Globulin 2.2 gm/dL (2.3-3.5); Glucose 92 mg/dL (74-106); Osmolality,Calculated 300 (275-295); Potassium 4.0 mMol/L (3.4-5.1); Sodium 139 mMol/L (136-145); Total Protein 5.3 gm/dL (5.7-8.2); eGFR 19 See Note
--- NOTE | 2025-04-29 10:53 | ESPR_ITS ---
Documentation for date of: 04/29/25 Subjective Subjective Interval history: Patient seen and examined at bedside. Patient is stable, receiving dialysis, goal to remove about 2 L fluid. Chest x-ray this morning shows prominent vascular congestion, pneumonia and layered pleural disease right hemithorax. Patient has improved urine output, Urine output around 2 L in the last 24 hours Patient is n.p.o. pending procedure with general surgery today. Pending echocardiogram. Exam Vital Signs Temp Pulse Resp BP Pulse Ox O2 Del Method O2 Flow Rate 97.4 F 81 23 H 132/79 H 94 L Mechanical Ventilation 65 04/29/25 08:14 04/29/25 10:45 04/29/25 08:14 04/29/25 10:45 04/29/25 08:14 04/29/25 08:00 04/29/25 08:14 FiO2 60 04/29/25 08:14 Narrative Exam Physical Exam General: Awake and in no acute distress. Tracheostomy site clean, on mechanical ventilation, nods to questions, responsive. HEENT: Normocephalic, atraumatic, mucous membranes moist. Heart: Irregular rhythm, rate controlled, no murmurs. Possible ejection systolic murmur. Lungs: Bilateral coarse crackles. Abdomen: Soft, obese, nondistended, nontender, positive bowel sounds. ?No guarding or rebound tenderness. Neurologic: Alert and oriented x3, no gross neurological deficit, and patient able to move all 4 extremities. Extremities: 1+ bilateral lower extremity edema, 1+ edema right upper extremity. Skin: No rash or ecchymoses. Patient has sacral decubitus ulcer. Objective Labs 04/29/25 05:30 04/29/25 05:30 Labs: Laboratory Results - last 24 hr 04/28/25 04/29/25 15:37 05:30 WBC 11.0 H RBC 3.34 L Hgb 9.5 L Hct 30.0 L MCV 90 MCH 28.4 MCHC 31.7 RDW Std Deviation 56.5 H Plt Count 350 Neut % (Auto) 48 Lymph % (Auto) 33 [place]ie % (Auto) 14 H Eos % (Auto) 4 Baso % (Auto) 1 Neut # (Auto) 5.2 Lymph # (Auto) 3.6 Davie # (Auto) 1.5 H Eos # (Auto) 0.4 Baso # (Auto) 0.1 Immature Gran # (Auto) 0.12 H Absolute Nucleated RBC 0.00 Immature Gran % 1 H Nucleated RBC % 0 PT 11.4 INR 1.0 APTT 52.6 H D 29.1 D Sodium 139 Potassium 4.0 Chloride 98 Carbon Dioxide 33.0 H Anion Gap 8 BUN 78 H Creatinine 3.5 H Estim Creat Clear Calc 35.7 L eGFR 19 L BUN/Creatinine Ratio 22 H Glucose 92 Calculated Osmolality 300 H Calcium 8.3 Corrected Calcium 9.0 Total Bilirubin 0.3 AST 21 ALT 12 Alkaline Phosphatase 189 H Total Protein 5.3 L Albumin 3.1 L Globulin 2.2 L Albumin/Globulin Ratio 1.4 ABG Interpretation ABG results: 04/18/25 04/18/25 04/18/25 04:40 06:27 10:30 ABG pH 7.28 L 7.33 L 7.36 ABG pCO2 72 H* 67 H 61 H ABG pO2 132 H 60 L D 60 L ABG HCO3 34 H 35 H 34 H ABG O2 Saturation 100 H 93 93 ABG Base Excess 6 H 7 H 8 H 04/19/25 08:53 ABG pH 7.47 H D ABG pCO2 45 D ABG pO2 66 L ABG HCO3 33 H ABG O2 Saturation 96 ABG Base Excess 8 H Quality Measures Quality Measures VTE therapy Advance care planning discussed with:: patient Assessment & Plan Assessment Current Active Medications: Generic Name Dose Route Start Last Admin Trade Name Freq PRN Reason Stop Dose Admin Acetaminophen 650 mg 04/22/25 20:43 04/22/25 20:52 Acetaminophen 325 Mg Tablet PO 05/22/25 20:42 650 mg Q6HR PRN Administration pain and Fever >100.4 Amiodarone HCl 200 mg 04/13/25 09:00 04/29/25 09:21 Amiodarone Hcl 200 Mg Tablet GT 05/13/25 08:59 Not Given QDAY KOURTNEY Amlodipine Besylate 10 mg 04/13/25 09:00 04/29/25 09:21 Amlodipine Besylate 5 Mg Tablet GT 05/13/25 08:59 Not Given QDAY KOURTNEY Artificial Tears 0 drop 04/14/25 19:33 Artificial Tears 225 Drop/15 Ml Btl BOTH EYES 05/14/25 19:32 PRN PRN TO KEEP EYES MOIST Ascorbic Acid 500 mg 04/17/25 21:00 04/29/25 09:21 Ascorbic Acid 250 Mg Tablet GT 05/17/25 20:59 Not Given BID KOURTNEY Bumetanide 2 mg 04/21/25 09:00 04/29/25 05:35 Bumetanide Inj 0.25 Mg/Ml Vial 4 Ml IVP 05/21/25 08:59 2 mg BIDD KOURTNEY Administration Dextrose 25 ml 04/12/25 23:32 04/24/25 05:27 Dextrose 50%-Water Inj 50 Ml Syringe IV 05/12/25 23:31 25 ml Q15MIN PRN Administration BG 50-70 responsive npo pt Dextrose 50 ml 04/12/25 23:32 Dextrose 50%-Water Inj 50 Ml Syringe IV 05/12/25 23:31 Q15MIN PRN BG <50 OR BG <70 & pt unresponsive Glucagon 1 mg 04/12/25 23:32 Glucagon Inj 1 Mg Vial IM Q15MIN PRN BG <70, and no IV access Heparin Sodium (Porcine) 3,000 unit 04/24/25 13:46 04/26/25 11:14 Heparin Sod Inj 1000 Unit/Ml Vial 10 Ml INDWELLCAT 05/08/25 13:45 3,000 unit PRN PRN Administration DIALYSIS Albumin Human 25 gm in 100 mls @ 100 mls/min 04/24/25 11:52 Albuminar-25 Ivpb IV PRN PRN DIALYSIS Heparin Sodium/Dextrose 25,000 unit in 250 mls @ 18 mls/hr 04/27/25 10:00 04/28/25 18:03 Heparin In D5w Ivpb IV 05/11/25 09:59 10.82 units/kg/hr .[id number] [facility], 1928[facility]1983 22.081 mls/hr Titration Protocol 8.8184 UNITS/KG/HR Insulin Glargine 38 unit 04/13/25 09:00 04/29/25 09:21 Insulin Glargine (Lantus) 5 Unit/0.05 Ml (Per 5 Units) SC 05/13/25 08:59 Not Given QDAY [facility]1983 Insulin Human Lispro 0 unit 04/13/25 00:00 04/29/25 05:34 Insulin Lispro (Admelog) 1 Unit/0.01 Ml Unit SC 05/13/25 00:00 Not Given Q6HR [facility], [facility] Protocol Lansoprazole 30 mg 04/14/25 21:00 04/29/25 09:21 Lansoprazole 30 Mg Tab. GT 05/13/25 08:59 Not Given BID [facility]1983 Metoprolol Tartrate 100 mg 04/17/25 10:15 04/29/25 09:22 Metoprolol Tartrate 25 Mg Tablet GT 05/17/25 10:14 Not Given BID KOURTNEY Ondansetron HCl 4 mg 04/12/25 23:27 04/17/25 05:28 Ondansetron Inj 2 Mg/Ml Inj 2 Ml IVP 05/12/25 23:26 4 mg Q6H PRN Administration NAUSEA OR VOMITING Protocol Pharmacy Consult 1 each 04/24/25 08:43 Pharmacy Renal Dose Adjustment 1 Ea XX 05/24/25 08:42 PRN PRN CONSULT Sodium Hypochlorite 473 ml 04/15/25 21:00 04/28/25 21:45 Sod Hypochlorite 1/4 Str 473 Ml Btl IRRIG 05/15/25 20:59 1 applicatio HS KOURTNEY Administration Zinc Sulfate 220 mg 04/18/25 09:00 04/29/25 09:22 Zinc Sulfate 220 Mg Capsule GT 05/18/25 08:59 Not Given QDAY [facility] Plan Assessment 64-year-old male with past medical history of DM2, hypertension, A-fib, and Jehova's witness was admitted to the ICU on 02/27/2025 for shock and acute hypoxic respiratory failure. He is s/p laparoscopic J-tube placement from [facility]. #Fluid overload #Acute on chronic hypoxic respiratory failure #Acute kidney injury-suspicion of ischemic ATN #Started on hemodialysis 04/24/2025, status post temporary dialysis catheter placement Patient looks clinically hypovolemic at this time 04/18-patient did receive x 1 dose of Bumex yesterday Patient's sodium is 143, it was 140 this morning. This happened after 500 cc NS, will increase water flushes rather than bolus b/c of concern for hypernatremia . 04/20 ? Attempt was made to place Fuller catheter however unable to pass catheter due to significant resistance and attempt was terminated. Discussed with nursing about possibility of weighing briefs daily. Patient had temporary hemodialysis catheter placed 04/24, receiving dialysis had 1 L removed on 04/24, 2 L on 04/25, 2.14 on 04/26 Plan: -Will continue IV Bumex 2 mg IV daily -Started on heparin gtt., currently being held -Monitor urine output -Avoid nephrotoxic agents -Renally dose medication #Decubitus ulcer #Chronic back pain Not requiring surgical intervention at this time Unstageable sacral ulcer Debridement bedside on 04/17/2025 Wound reassessed by wound care team and general surgeon on 04/24/2025 Per general surgery patient will likely need a debridement, scheduled for Tuesday Plan: - N.p.o. currently - Scheduled for debridement in OR - Repeat echocardiogram ordered-pending - Heparin GTT, being held - [place] 5 as needed - Skin barrier creams PRN - Referral to wound care #Right diastolic CHF # Fluid overload status, resolving Patient appears clinically dry at this point, will hold on diuresis at this time Plan: - Continue strict daily body weight - Daily weights - Strict I&O #Jejunostomy tube #Abdominal abscess Patient report said that there was an intra-abdominal abscess that have could have been from a perforated ulcer in the past See also note reviewed, mentions that patient likely had a marginal ulcer, but also was not seen on EGD without, currently patient has no abdominal tenderness and is totally asymptomatic. No current drain at this time Patient is status post laparoscopic J-tube placement and is currently on feeds Patient will continue to have this tube and will likely go to a long-term care facility with this until patient can swallow safely Plan: ? Completed antibiotic treatment. ? Monitor vitals closely #Aspiration Pneumonia, completed treatment #Obesity hypoventilation syndrome and obstructive sleep apnea #Dysphagia #Tracheostomy Patient was intubated and ventilated due to hypoxic respiratory failure, was unable to be extubated. Tracheostomy was placed. PEG tube was able to be placed, patient transferred to [facility] for laparoscopic J-tube placement, is now being transferred back after procedure successfully completed Plan: - Dietary consulted, recommendations appreciated - Respiratory therapy consulted - Blow-by during the day, mechanical ventilation at night as needed at baseline, currently on mechanical ventilation - Completed antibiotic treatment #Hx of A-fib [id number] score of 3 points indicating 3.2% risk of stroke per year HAS-BLED: 0 Currently rhythm controlled Plan: - Xarelto held in anticipation of surgery - Heparin GTT - Amiodarone 200 mg QDAY - Metoprolol succinate 100 twice daily - Keep potassium and magnesium above 4 and 2 respectively - Telemetry #Right internal jugular venous thrombosis #Right arm swelling Continuing free water flushes, patient has gone multiple days of heparin drip since 04/01 Plan: ? Xarelto 20 mg qday being held - Heparin GTT #Morbid obesity #DM2 A1C 7.6 on 03/05/2025 Patient has a BMI of 79.5->68.7 Plan: - ISS scale 2 - Hypoglycemia protocol ordered - 38 units of Lantus. #Health Maintenance Disposition: Telemetry DVT prophylaxis: Xarelto being held, heparin drip being held GI prophylaxis: Protonix Diet: 2Cal Tube Feeds with 30 cc/hour water flush, currently n.p.o. CODE STATUS: Full code Patient plan of care was discussed with the attending physician, Dr. Mccurdy. Elizabeth Lamas PGY1 Attending Provider Attestation/Addendum Face to face evaluation was performed by me. I have personally seen and examined the patient. I discussed the assessment and plan with the entire medicine team. I reviewed available medical records, imaging studies, laboratory results. I agree with the above subjective data, objective findings, assessment and plan except as corrected by me or noted below Respiratory failure, ventilator dependant R IJ venous thrombosis Chronic A Fiv Morbid Obesity Sacral- wound, poa, chronic Jejunostomy tube Abdominal abscess - Getting HD session now. Continue with HD per nephrology - Surgery on board, pending OR for decubitus ulcer later today - heparin drip to be resumed after surgery again - Monitor BP, contnue meds as ordered
[2025-04-29] MEDS: HEPARIN SOD INJ 1000 UNIT/ML VIAL 10 ML 3000 UNIT INDWELLCAT (11:04)
--- NOTE | 2025-04-29 11:56 | PC.NURSE ---
Dialysis completed for 3 hrs, tolerated well.? Pt awake, A/O x4, no complaint of pain.? Respiration even and unlabored? O2 sat 96-97% pt on ventilator.?Able to removed 2100 ml of fluid net.? Post tx BP 130/69, HR 81, Temp 97.0.? Call light within reached. Report given to Brittney CASTELAN
--- NOTE | 2025-04-29 12:06 | PC.NURSE ---
Called Donta ARRIAGA to make aware Pt. going to surgery at 1300 to help with transport.
--- NOTE | 2025-04-29 14:38 | ECHO_ITS ---
Transthoracic Echo Report Ht (in): 66 Wt (lb): 450 Exam Location: Echo Lab Status: Inpatient Algebra Teacher: Mahnaz Torres Indications: Procedure Performed: BP: 121 / 81 HR: 94 Technical Quality: Technically Difficult Due To Body Habitus MEASUREMENTS (Male / Female) Normal Values 2D ECHO LV Diastolic Diameter PLAX 4.6 cm 4.2 - 5.9 / 3.9 - 5.3 cm LV Systolic Diameter PLAX 2.3 cm IVS Diastolic Thickness 1.3 cm 0.6 - 1.0 / 0.6 - 0.9 cm LVPW Diastolic Thickness 1.0 cm 0.6 - 1.0 / 0.6 - 0.9 cm LV Relative Wall Thickness 0.5 LVOT Diameter 2.2 cm LA Volume Index 57.8 cm?/m? 16 - 28 cm?/m? Ascending Aorta Diameter 3.4 cm DOPPLER AV Peak Velocity 137.0 cm/s AV Peak Gradient 7.5 mmHg LVOT Peak Velocity 90.2 cm/s LVOT Peak Gradient 3.3 mmHg AV Area Cont Eq pk 2.5 cm? MV Area PHT 3.1 cm? Mitral E Point Velocity 86.8 cm/s Mitral A Point Velocity 26.2 cm/s Mitral E to A Ratio 3.3 LV E' Lateral Velocity 9.3 cm/s Mitral E to LV E' Lateral Ratio 9.4 LV E' Septal Velocity 9.8 cm/s Mitral E to LV E' Septal Ratio 8.9 TR Peak Velocity 342.0 cm/s TR Peak Gradient 46.8 mmHg PV Peak Velocity 76.0 cm/s PV Peak Gradient 2.3 mmHg FINDINGS Left Ventricle Normal left ventricular size, wall thickness, systolic function with no obvious regional wall motion abnormalities. There is grade III diastolic dysfunction of the left ventricle (restrictive filling pattern). . The ejection fraction is visually estimated at 65%. Right Ventricle The right ventricle is severely enlarged with mildly reduced systolic function. The estimated right ventricular systolic pressure, 47mmHg. RAP 15mmHg. Left Atrium The left atrium is visually severely enlarged. Right Atrium The right atrium is severely enlarged. Atrial Septum The interatrial septum appears normal with no evidence of a shunt. Aorta The aorta is normal by two-dimensional, color flow and Doppler interrogation. Mitral Valve The mitral valve annulus is mildly calcified There is no significant mitral valve regurgitation, stenosis or prolapse. Aortic Valve The aortic valve is trileaflet and moderately to severely calcified. There is no significant aortic valve regurgitation. Tricuspid Valve The tricuspid valve is normal by two-dimensional, color flow and Doppler interrogation. There is trace tricuspid regurgitation. Pulmonic Valve The pulmonic valve is not well visualized. There is mild pulmonic regurgitation. Vessels The pulmonary artery appears normal. The inferior vena cava measures the upper limits of normal with poor inspiratory collapse. Pericardium The pericardium is normal by two-dimensional imaging. There is no significant pericardial effusion. CONCLUSIONS Indications: Pre-Op Clearance Techinically Difficult Study Normal LV size and function. Estimated EF of 65%. Grade III Diastolic Dysfunction. Right ventricle is dilated with mild RV dysfunction RVSP 47mmHg. RAP 15mmHg. Severe biatrial dilation. Moderate to Severe AOV calcification with no stenosis <ild tricuspid regurgitation No pericardial effusion. Mariah Pratt (Electronically Signed) Final Date: 29 April 2025 12:50
--- NOTE | 2025-04-29 14:41 | PD.SUROPNT ---
Date of Procedure 04/29/25 Pre Op Diagnosis Sacral decubitus ulcer with necrotic tissue Post Op Diagnosis Same Procedure Excisional debridement of sacral decubitus ulcer, washout, placement of wound VAC Findings Sacral decubitus ulcer containing necrotic tissue, sharply debrided to the level of subcutaneous tissue, measuring 8 x 15 x 3 cm Procedure Description After discussion of risks and benefits, patient was brought to the operating room, SCDs were activated and general anesthesia was induced. He was placed in the left lateral decubitus position and was prepped and draped in the usual sterile fashion. He received preoperative antibiotics. After timeout the sacral decubitus ulcer was sharply debrided to the level of subcutaneous tissue using a combination of scissors and electrocautery. The wound was irrigated with a Pulsavac and hemostasis was achieved with electrocautery. The wound was measured to be 8 cm in craniocaudal dimension (measured at the midline), 15 cm in transverse dimension and 3 cm deep. There is some tunneling at the superior aspect of the wound at the midline and towards the right of the wound. A wound VAC was placed with black foam and tunneled to the patient's right hip. It was hooked to suction and had no leaking. Patient was returned to supine position and awoken. He was brought to PACU in stable condition Pathology / specimen None Estimated Blood Loss 25 Surgeon Negrita Negron MD Surgical Staff Operation Date: 04/29/25 13:00 Case Staff Anesthesiologist: Eyad Haro
--- NOTE | 2025-04-29 15:05 | SUR.PHASEI ---
1429: pt arrived to PACU via bed on mechanical ventilator awake, alert, able to nod appropriately to questions, breathing unlabored, dressing to sacrum clean, dry, and intact with wound vac in place set to 125mmHg continuous, report from Raj CASTELAN and Dr Haro 1500: Report called to Maggie CASTELAN, respiratory therapy informed pt ready for transport 1505: pt transferred via bed with RT present to manage ventilator, pt awake, alert, able to nod appropriately to questions, pt denies pain, dressing to sacrum clean, dry, and intact with wound vac in place and functioning appropriately
--- NOTE | 2025-04-29 15:51 | PC.NURSE ---
Per Nirmala Pharmacist Resume heparin drip using PTT drawn at 0530 as pt. has not been on heparin since. Per Dr. Negron okfaustino to resume heparin drip at this time. Dr. Betts aware and agrees to resume heparin drip, and resume tube feeds at previous rate.
--- NOTE | 2025-04-29 16:02 | PC.NURSE ---
Per Nirmala pharmacist give bolus per protocol, but keep rate at 10.82 units/kg/hr since pt. has been off of drip for a while. Dr. Betts aware and agrees to bolus order and rate.
--- NOTE | 2025-04-29 16:22 | PC.SS ---
Addendum entered by Janessa Ramírez 04/30/25 10:44: Per bedside nurseAspen pt is not psychiatric meds, anxiety, or depression meds (pt not on Zolft). PASRR level 1 has been completed. Previous PASRR has been more than 14 days. Original Note: Follow up note: Surgery today for sacral wound debridementt. Dialysis today. Pt is possible to LTAC vs Subacute
[2025-04-29] MEDS: HEPARIN SOD INJ 5000 UNIT/ML VIAL 8000 UNIT IVP (16:33)
[2025-04-29] MEDS: Heparin/D5w 25K 250 ML Ivpb 25,000 UNIT/250 ML BAG 22.085 UNIT IV (16:34)
[2025-04-29] MEDS: HYDROmorphone INJ 2 MG/ML VIAL 0.25 MG IVP (18:44)
[2025-04-29] MEDS: METOPROLOL TARTRATE 25 MG TABLET 100 MG GT (20:39)
[2025-04-29] MEDS: LANSOPRAZOLE 30 MG TAB.RAP.DR GT (20:39)
[2025-04-29] MEDS: ASCORBIC ACID 250 MG TABLET 500 MG GT (20:40)
[2025-04-29 23:33] LABS: Partial Thromboplastin Time 62.9 Seconds (22.0-36.0)
[2025-04-30] VITALS (15 sets, daily range): BP systolic 105–141; BP diastolic 68–91; PULSE 60–95; RESP 17–31; TEMP 36.1–36.4; O2SAT 91–100; BMI 69.7
[2025-04-30] MEDS: HYDROcodone/APAP 5/325 TABLET 1 TAB PO ×3 (03:57→23:14)
[2025-04-30 05:14] LABS: Basophils # (Auto) 0.1 Thou/mm3 (0.0-0.2); Basophils % (Auto) 1 % (0-2.5); Eosinophils # (Auto) 0.3 Thou/mm3 (0.0-0.5); Eosinophils % (Auto) 2 % (0-10); Hematocrit 29.2 % (41.0-53.0); Hemoglobin 9.3 g/dL (13.5-16.0); Immature Granulocytes Auto 0.11 Thou/mm3 (0.00-0.00); Lymphocytes # (Auto) 3.0 Thou/mm3 (1.0-4.8); Lymphocytes % (Auto) 28 % (10-50); Mean Corpuscular HGB Conc 31.8 g/dl (31.0-37.0); Mean Corpuscular Hemoglobin 28.5 pg (25.0-35.0); Mean Corpuscular Volume 90 fL (80-100); Monocytes # (Auto) 1.2 Thou/mm3 (0.0-0.8); Monocytes % (Auto) 11 % (0-12); Neutrophils # (Auto) 5.9 Thou/mm3 (1.8-7.7); Neutrophils % (Auto) 56 % (37-80); Nucleated Red Blood Cell # 0.00 Thou/mm3 (0.00-0.00); Nucleated Red Blood Cell % 0 /100 WBC (0); Platelet Count 319 Thou/mm3 (140-440); RDW Standard Deviation 56.6 fL (35.1-43.9); Red Blood Count 3.26 Miln/mm3 (4.50-5.90); White Blood Count 10.4 Thou/mm3 (3.8-10.6)
[2025-04-30] MEDS: Heparin/D5w 25K 250 ML Ivpb 25,000 UNIT/250 ML BAG 22.085 UNIT IV (05:17)
[2025-04-30 05:30] LABS: Partial Thromboplastin Time 46.4 Seconds (22.0-36.0)
[2025-04-30] MEDS: BUMETANIDE INJ 0.25 MG/ML VIAL 4 ML 2 MG IVP ×2 (05:31→18:16)
[2025-04-30 05:56] LABS: Alanine Aminotransferase 10 U/L (10-49); Albumin, Serum 3.2 gm/dL (3.4-4.8); Albumin/Globulin Ratio 1.2 (1.2-2.2); Alkaline Phosphatase 184 U/L (46-116); Anion Gap 10 (7-16); Aspartate Amino Transferase 30 U/L (0-34); BUN/Creatinine Ratio 15 Ratio (12-20); Bilirubin,Total 0.2 mg/dL (0.3-1.2); Blood Urea Nitrogen 46 mg/dL (9-23); Calcium 8.5 mg/dL (8.3-10.6); Calcium (Corrected) 9.1 mg/dL (8.5-10.1); Carbon Dioxide 29.8 mMol/L (20.0-31.0); Chloride 98 mMol/L (98-107); Creatinine (Component) 3.0 mg/dL (0.6-1.3); Estimated Creatinine Clearance 41.3 mL/min (>60); Globulin 2.6 gm/dL (2.3-3.5); Glucose 141 mg/dL (74-106); Osmolality,Calculated 289 (275-295); Potassium 4.4 mMol/L (3.4-5.1); Sodium 138 mMol/L (136-145); Total Protein 5.8 gm/dL (5.7-8.2); eGFR 22 See Note
[2025-04-30] MEDS: HEPARIN SOD INJ 5000 UNIT/ML VIAL 4000 UNIT IVP (07:23)
[2025-04-30 09:16] LABS: Magnesium 2.3 mg/dL (1.6-2.6); Phosphorous 4.3 mg/dL (2.4-5.1)
[2025-04-30] MEDS: ZINC SULFATE 220 MG CAPSULE GT (09:41)
[2025-04-30] MEDS: METOPROLOL TARTRATE 25 MG TABLET 100 MG GT ×2 (09:41→20:05)
[2025-04-30] MEDS: AMIODARONE HCL 200 MG TABLET GT (09:41)
[2025-04-30] MEDS: ASCORBIC ACID 250 MG TABLET 500 MG GT ×2 (09:42→20:05)
[2025-04-30] MEDS: LANSOPRAZOLE 30 MG TAB.RAP.DR GT ×2 (09:42→20:05)
[2025-04-30] MEDS: INSULIN GLARGINE (Lantus) 5 UNIT/0.05 ML (PER 5 UNITS) 38 UNIT SC (09:42)
--- NOTE | 2025-04-30 10:38 | PC.SS ---
Addendum entered by Janessa Ramírez 04/30/25 11:43: SS has sent updated inquiry to [facility] using [facility] and spoke to Mara who explained they are unable to accept pt with temporary dialysis cath. Per Sharon, pt will require dialysis perma cath for them to accept. SS has left Jose from [facility] a voicemail. Original Note: SS spoke to Janneth from [facility] who explained they are unable to accept patients on dialysis.
--- NOTE | 2025-04-30 10:54 | ESPR_ITS ---
Documentation for date of: 04/30/25 Subjective Subjective Interval history: Patient seen and examined at bedside. Patient is status postop day 1 received excisional debridement of sacral decubitus ulcer, washout and placement of wound VAC. Patient complaining of pain, was given IV Dilaudid yesterday, overnight was given [place]. Patient complains of mild to moderate pain, well-managed on [place]. Patient is fairly stable, receiving dialysis, last session was yesterday, 2.1 L fluid was removed. Patient is currently receiving dialysis via temporary dialysis catheter, patient will likely need placement to LTAC for further management of acute issues. Will continue heparin drip for now, will transition to Xarelto tomorrow, if no significant blood loss. Exam Vital Signs Temp Pulse Resp BP Pulse Ox O2 Del Method O2 Flow Rate 97.1 F 77 19 108/75 91 L Mechanical Ventilation 65 04/30/25 08:00 04/30/25 09:41 04/30/25 08:00 04/30/25 09:41 04/30/25 08:00 04/30/25 08:00 04/30/25 07:15 FiO2 60 04/30/25 07:15 Narrative Exam Physical Exam General: Awake and in no acute distress. Tracheostomy site clean, on mechanical ventilation, nods to questions, responsive. HEENT: Normocephalic, atraumatic, mucous membranes moist. Heart: Irregular rhythm, rate controlled, no murmurs. Possible ejection systolic murmur. Lungs: Bilateral coarse crackles. Abdomen: Soft, obese, nondistended, nontender, positive bowel sounds. ?No guarding or rebound tenderness. Neurologic: Alert and oriented x3, no gross neurological deficit, and patient able to move all 4 extremities. Extremities: 1+ bilateral lower extremity edema, 1+ edema right upper extremity. Skin: No rash or ecchymoses. Patient has sacral decubitus ulcer. Objective Labs 04/30/25 04:47 04/30/25 04:47 Labs: Laboratory Results - last 24 hr 04/29/25 04/30/25 04/30/25 22:45 04:47 08:22 WBC 10.4 RBC 3.26 L Hgb 9.3 L Hct 29.2 L MCV 90 MCH 28.5 MCHC 31.8 RDW Std Deviation 56.6 H Plt Count 319 D Neut % (Auto) 56 Lymph % (Auto) 28 [place] % (Auto) 11 Eos % (Auto) 2 Baso % (Auto) 1 Neut # (Auto) 5.9 Lymph # (Auto) 3.0 [place] # (Auto) 1.2 H Eos # (Auto) 0.3 Baso # (Auto) 0.1 Immature Gran # (Auto) 0.11 H Absolute Nucleated RBC 0.00 Immature Gran % 1 H Nucleated RBC % 0 APTT 62.9 H D 46.4 H D Sodium 138 Potassium 4.4 Chloride 98 Carbon Dioxide 29.8 Anion Gap 10 BUN 46 H Creatinine 3.0 H D Estim Creat Clear Calc 41.3 L eGFR 22 L BUN/Creatinine Ratio 15 Glucose 141 H D Calculated Osmolality 289 Calcium 8.5 Corrected Calcium 9.1 Phosphorus 4.3 Magnesium 2.3 Total Bilirubin 0.2 L AST 30 ALT 10 Alkaline Phosphatase 184 H Total Protein 5.8 Albumin 3.2 L Globulin 2.6 Albumin/Globulin Ratio 1.2 ABG Interpretation ABG results: 04/18/25 04/18/25 04/18/25 04:40 06:27 10:30 ABG pH 7.28 L 7.33 L 7.36 ABG pCO2 72 H* 67 H 61 H ABG pO2 132 H 60 L D 60 L ABG HCO3 34 H 35 H 34 H ABG O2 Saturation 100 H 93 93 ABG Base Excess 6 H 7 H 8 H 04/19/25 08:53 ABG pH 7.47 H D ABG pCO2 45 D ABG pO2 66 L ABG HCO3 33 H ABG O2 Saturation 96 ABG Base Excess 8 H Quality Measures Quality Measures VTE therapy Advance care planning discussed with:: patient Assessment & Plan Assessment Current Active Medications: Generic Name Dose Route Start Last Admin Trade Name Freq PRN Reason Stop Dose Admin Acetaminophen 650 mg 04/22/25 20:43 04/22/25 20:52 Acetaminophen 325 Mg Tablet PO 05/22/25 20:42 650 mg Q6HR PRN Administration pain and Fever >100.4 Hydrocodone Bitart/Acetaminophen 1 tab 04/30/25 02:06 04/30/25 03:57 Hydrocodone/Apap 5/325 Tablet PO 05/05/25 02:05 1 tab Q6HR PRN Administration PAIN SCALE 4-10(Mod-Sev Amiodarone HCl 200 mg 04/13/25 09:00 04/30/25 09:41 Amiodarone Hcl 200 Mg Tablet GT 05/13/25 08:59 200 mg QDAY KOURTNEY Administration Amlodipine Besylate 10 mg 04/13/25 09:00 04/30/25 09:36 Amlodipine Besylate 5 Mg Tablet GT 05/13/25 08:59 10 mg QDAY KOURTNEY Administration Artificial Tears 0 drop 04/14/25 19:33 Artificial Tears 225 Drop/15 Ml Btl BOTH EYES 05/14/25 19:32 PRN PRN TO KEEP EYES MOIST Ascorbic Acid 500 mg 04/17/25 21:00 04/30/25 09:42 Ascorbic Acid 250 Mg Tablet GT 05/17/25 20:59 500 mg BID KOURTNEY Administration Bumetanide 2 mg 04/21/25 09:00 04/30/25 05:31 Bumetanide Inj 0.25 Mg/Ml Vial 4 Ml IVP 05/21/25 08:59 2 mg BIDD KOURTNEY Administration Dextrose 25 ml 04/12/25 23:32 04/24/25 05:27 Dextrose 50%-Water Inj 50 Ml Syringe IV 05/12/25 23:31 25 ml Q15MIN PRN Administration BG 50-70 responsive npo pt Dextrose 50 ml 04/12/25 23:32 Dextrose 50%-Water Inj 50 Ml Syringe IV 05/12/25 23:31 Q15MIN PRN BG <50 OR BG <70 & pt unresponsive Glucagon 1 mg 04/12/25 23:32 Glucagon Inj 1 Mg Vial IM Q15MIN PRN BG <70, and no IV access Heparin Sodium (Porcine) 3,000 unit 04/24/25 13:46 04/29/25 11:04 Heparin Sod Inj 1000 Unit/Ml Vial 10 Ml INDWELLCAT 05/08/25 13:45 3,000 unit PRN PRN Administration DIALYSIS Albumin Human 25 gm in 100 mls @ 100 mls/min 04/24/25 11:52 Albuminar-25 Ivpb IV PRN PRN DIALYSIS Heparin Sodium/Dextrose 25,000 unit in 250 mls @ 22.085 mls/hr 04/29/25 16:30 04/30/25 07:23 Heparin In D5w Ivpb IV 05/13/25 16:29 12.8 units/kg/hr .[id number] KOURTNEY 26.127 mls/hr Titration Protocol 10.82 UNITS/KG/HR Insulin Glargine 38 unit 04/13/25 09:00 04/30/25 09:42 Insulin Glargine (Lantus) 5 Unit/0.05 Ml (Per 5 Units) SC 05/13/25 08:59 38 unit QDAY KOURTNEY Administration Insulin Human Lispro 0 unit 04/13/25 00:00 04/30/25 05:24 Insulin Lispro (Admelog) 1 Unit/0.01 Ml Unit SC 05/13/25 00:00 Not Given Q6HR KOURTNEY Protocol Lansoprazole 30 mg 04/14/25 21:00 04/30/25 09:42 Lansoprazole 30 Mg Tab.Joshua. GT 05/13/25 08:59 30 mg BID KOURTNEY Administration Metoprolol Tartrate 100 mg 04/17/25 10:15 04/30/25 09:41 Metoprolol Tartrate 25 Mg Tablet GT 05/17/25 10:14 100 mg BID KOURTNEY Administration Ondansetron HCl 4 mg 04/12/25 23:27 04/17/25 05:28 Ondansetron Inj 2 Mg/Ml Inj 2 Ml IVP 05/12/25 23:26 4 mg Q6H PRN Administration NAUSEA OR VOMITING Protocol Pharmacy Consult 1 each 04/24/25 08:43 Pharmacy Renal Dose Adjustment 1 Ea XX 05/24/25 08:42 PRN PRN CONSULT Zinc Sulfate 220 mg 04/18/25 09:00 04/30/25 09:41 Zinc Sulfate 220 Mg Capsule GT 05/18/25 08:59 220 mg QDAY KOURTNEY Administration Plan Assessment 64-year-old male with past medical history of DM2, hypertension, A-fib, and Jehova's witness was admitted to the ICU on 02/27/2025 for shock and acute hypoxic respiratory failure. He is s/p laparoscopic J-tube placement from [facility]. Patient seen and examined at bedside. Patient is status postop day 1 received Patient complaining of pain, was given IV Dilaudid yesterday, overnight was given [place]. Patient complains of mild to moderate pain, well-managed on [place]. Patient is fairly stable, receiving dialysis, last session was yesterday, 2.1 L fluid was removed. Patient is currently receiving dialysis via temporary dialysis catheter, patient will likely need placement to LTAC for further management of acute issues. Will continue heparin drip for now, will transition to Xarelto tomorrow, if no significant blood loss. #Fluid overload #Acute on chronic hypoxic respiratory failure #Acute kidney injury-suspicion of ischemic ATN #Started on hemodialysis 04/24/2025, status post temporary dialysis catheter placement Patient looks clinically hypervolemic at this time 04/20 ? Attempt was made to place Fuller catheter however unable to pass catheter due to significant resistance and attempt was terminated. Discussed with nursing about possibility of weighing briefs daily. Patient had temporary hemodialysis catheter placed 04/24, receiving dialysis had 1 L removed on 04/24, 2 L on 04/25, 2.14 on 04/26, 2.1 L on 04/29 Plan: -Will continue IV Bumex 2 mg IV daily -Continue heparin GGT -Monitor urine output -Avoid nephrotoxic agents -Renally dose medication #Decubitus ulcer status post excisional debridement of sacral decubitus ulcer, washout and placement of wound VAC, 04/29 #Chronic back pain Not requiring surgical intervention at this time Unstageable sacral ulcer Debridement bedside on 04/17/2025 Wound reassessed by wound care team and general surgeon on 04/24/202504/29: excisional debridement of sacral decubitus ulcer, washout and placement of wound VAC. Plan: - Continue wound care - Heparin GTT - [place] 5 as needed - Skin barrier creams PRN - Referral to wound care # Right diastolic CHF # Stage III diastolic dysfunction # Fluid overload status, resolving Patient appears clinically dry at this point, will hold on diuresis at this time ECHO 04/29/2025: Normal LV size and function. Estimated EF of 65%. Grade III Diastolic Dysfunction. Right ventricle is dilated with mild RV dysfunction. RVSP 47mmHg. RAP 15mmHg. Severe biatrial dilation. Moderate to Severe AOV calcification with no stenosis Mild tricuspid regurgitation No pericardial effusion. Plan: - Continue strict daily body weight - Continue hemodialysis per nephrology - Daily weights - Strict I&O #Jejunostomy tube #Abdominal abscess Patient report said that there was an intra-abdominal abscess that have could have been from a perforated ulcer in the past See also note reviewed, mentions that patient likely had a marginal ulcer, but also was not seen on EGD without, currently patient has no abdominal tenderness and is totally asymptomatic. No current drain at this time Patient is status post laparoscopic J-tube placement and is currently on feeds Patient will continue to have this tube and will likely go to a long-term care facility with this until patient can swallow safely Plan: ? Completed antibiotic treatment. ? Monitor vitals closely #Aspiration Pneumonia, completed treatment #Obesity hypoventilation syndrome and obstructive sleep apnea #Dysphagia #Tracheostomy Patient was intubated and ventilated due to hypoxic respiratory failure, was unable to be extubated. Tracheostomy was placed. PEG tube was able to be placed, patient transferred to [facility] for laparoscopic J-tube placement, is now being transferred back after procedure successfully completed Plan: - Dietary consulted, recommendations appreciated - Respiratory therapy consulted - Blow-by during the day, mechanical ventilation at night as needed at baseline, currently on mechanical ventilation - Completed antibiotic treatment # Atrial fibrillation, by history [id number] score of 3 points indicating 3.2% risk of stroke per year HAS-BLED: 0 Currently rhythm controlled Plan: - Xarelto held in anticipation of surgery - Heparin GTT - Amiodarone 200 mg QDAY - Metoprolol succinate 100 twice daily - Keep potassium and magnesium above 4 and 2 respectively - Telemetry #Right internal jugular venous thrombosis #Right arm swelling Continuing free water flushes, patient has gone multiple days of heparin drip since 04/01 Plan: ? Xarelto 20 mg qday being held - Heparin GTT #Morbid obesity #DM2 A1C 7.6 on 03/05/2025 Patient has a BMI of 79.5->68.7 Plan: - ISS scale 2 - Hypoglycemia protocol ordered - 38 units of Lantus. #Health Maintenance Disposition: Telemetry DVT prophylaxis: Xarelto being held, heparin drip GI prophylaxis: Protonix Diet: 2Cal Tube Feeds with 30 cc/hour water flush CODE STATUS: Full code Patient plan of care was discussed with the attending physician, Dr. Mccurdy. Elizabeth Lamas PGY1 Attending Provider Attestation/Addendum Face to face evaluation was performed by me. I have personally seen and examined the patient. I discussed the assessment and plan with the entire medicine team. I reviewed available medical records, imaging studies, laboratory results. I agree with the above subjective data, objective findings, assessment and plan except as corrected by me or noted below Chronic hypoxic respite failure, ventilator dependent acute right IJ DVT Acute kidney injury requiring hemodialysis Essential hypertension Dysphagia Chronic atrial fibrillation Lower back sacral wound -Status post debridement per surgery on 04/29/2025 - Heparin drip resuming anticoagulation?switch to oral agent?end of AC by tomorrow. - Dialysis per nephrology - Discharge planning? LTAC is being considered. Patient has multiple comorbidities including renal failure requiring dialysis, tracheostomy and care, anticoagulation, he would benefit from long-term acute care facility placement as he requires more care than regular fpc facility can provide. More than > 30 minutes spent on the encounter
[2025-04-30 14:47] LABS: Partial Thromboplastin Time 45.9 Seconds (22.0-36.0)
--- NOTE | 2025-04-30 15:20 | PD.RESPRO ---
Documentation for date of: 04/30/25 Subjective Subjective Interval history: 04/20/2025 patient currently seen in telemetry. On vent. S/p trach, J-tube. Blood pressure 124/83, heart rate 88. Hemoglobin 9.5, platelets 427. Sodium 133, potassium 4.4, bicarbonate 28, BUN 49, creatinine 2.9, calcium 9.4, phosphorus 2.5, magnesium 2.6, LFTs normal, albumin 3.1 x-ray showed, diffuse right lung pneumonia and a possible right pleural fluid. 04/24/2025: Pt examined at bedside today. No acute overnight events. Pt to get IR dialysis catheter today, and to start dialysis afterwards. Pt is agreeable and is wondering when he is going to get his catheter. Currently on mechanical ventilation and not on blow-by at this time. BUN/Cr 90 and 4.4 respectively, potassium 4.9, sodium 138, magnesium 2.8. No other complaints at this time. 04/25/2025: Patient examined at bedside today. Currently on mechanical ventilation. Had dialysis yesterday. Patient's BUN/creatinine 77 and 4.1 respectively, magnesium 2.6, phosphorus 1.4, calcium 4.6. Patient will get second dialysis session today. Patient will require LTAC likely in [place] due to patient being on mechanical ventilation. Patient is usually on mechanical ventilation at night, blow-by during the day, however he has been requiring mechanical ventilation during the day. 04/26/2025: Patient examined bedside today no acute overnight events. Currently on mechanical ventilation. Had dialysis yesterday, will get 1 more dialysis session today. Patient's BUN/creatinine 59 and 3.4 respectively, calcium 8.9, phosphorus 3.7, magnesium 2.4. Patient to get debridement of sacral wound today by general surgery. Patient will likely be on dialysis schedule Tuesday moving forward. 04/27/2025: Patient examined at bedside today. No acute overnight events. Patient continues on mechanical ventilation. Patient was a bit sleepy when examined. Patient to get next [place] session on Tuesday. Patient's BUN/creatinine today 52 and 3.1 respectively, urine output 850 mL, white count 11, hemoglobin 9.4,, potassium 4.2, magnesium 2.3, phosphorus 3.4. No other complaints this time 04/29/2025: Patient examined at bedside today. No acute overnight events. Pending electrolyte labs. White count 11, hemoglobin 9.5, urine output 2114 milliliters. Patient currently in dialysis currently, goal fluid removal 2.1 L. Currently on mechanical ventilation. Pt to get debridement of sacral wound today. No complaints this time. 04/30/2025 patient is evaluated at the bedside, no acute overnight events, currently on trach collar, noted improvement in swelling, urine output adequate, will consider holding off on session of hemodialysis and continuing monitoring of renal function and urine output. Wound VAC to sacral wound draining serosanguineous fluid. Exam Vital Signs Temp Pulse Resp BP Pulse Ox O2 Del Method O2 Flow Rate 97 F 63 20 106/68 100 Mechanical Ventilation 65 04/30/25 12:00 04/30/25 12:00 04/30/25 12:00 04/30/25 12:00 04/30/25 12:00 04/30/25 12:00 04/30/25 07:15 FiO2 60 04/30/25 12:00 Narrative Exam General: AAOx3, lying down, severely morbidly obese, comfortable, swelling left upper extrenmity HEENT: Dry mucous membranes, conjunctiva clear, EOMI, PERRLA, trachestomy Cardiovascular: Ejection systolic murmur, radial pulses +2 bilat, irregularly irregular, Pulmonary: Currently on mechanical ventilation and not blow-by GI: No tenderness to light or deep palpitation, no guarding, rigidity, rebound tenderness or distension, J-tube present Extremities: Trace edema in lower extremities bilaterally, dorsalis pedis pulses +2 bilaterally, Back: Decubitis ulcer, no bone visualization Neuro: AAOx3, no focal motor or sensory deficits in the UE or LE bilat Objective Labs 05/02/25 03:14 05/02/25 02:00 Labs: Laboratory Results - last 24 hr 04/29/25 04/30/25 04/30/25 22:45 04:47 08:22 WBC 10.4 RBC 3.26 L Hgb 9.3 L Hct 29.2 L MCV 90 MCH 28.5 MCHC 31.8 RDW Std Deviation 56.6 H Plt Count 319 D Neut % (Auto) 56 Lymph % (Auto) 28 [place] % (Auto) 11 Eos % (Auto) 2 Baso % (Auto) 1 Neut # (Auto) 5.9 Lymph # (Auto) 3.0 [place] # (Auto) 1.2 H Eos # (Auto) 0.3 Baso # (Auto) 0.1 Immature Gran # (Auto) 0.11 H Absolute Nucleated RBC 0.00 Immature Gran % 1 H Nucleated RBC % 0 APTT 62.9 H D 46.4 H D Sodium 138 Potassium 4.4 Chloride 98 Carbon Dioxide 29.8 Anion Gap 10 BUN 46 H Creatinine 3.0 H D Estim Creat Clear Calc 41.3 L eGFR 22 L BUN/Creatinine Ratio 15 Glucose 141 H D Calculated Osmolality 289 Calcium 8.5 Corrected Calcium 9.1 Phosphorus 4.3 Magnesium 2.3 Total Bilirubin 0.2 L AST 30 ALT 10 Alkaline Phosphatase 184 H Total Protein 5.8 Albumin 3.2 L Globulin 2.6 Albumin/Globulin Ratio 1.2 04/30/25 14:21 WBC RBC Hgb Hct MCV MCH MCHC RDW Std Deviation Plt Count Neut % (Auto) Lymph % (Auto) [place] % (Auto) Eos % (Auto) Baso % (Auto) Neut # (Auto) Lymph # (Auto) [place] # (Auto) Eos # (Auto) Baso # (Auto) Immature Gran # (Auto) Absolute Nucleated RBC Immature Gran % Nucleated RBC % APTT 45.9 H Sodium Potassium Chloride Carbon Dioxide Anion Gap BUN Creatinine Estim Creat Clear Calc eGFR BUN/Creatinine Ratio Glucose Calculated Osmolality Calcium Corrected Calcium Phosphorus Magnesium Total Bilirubin AST ALT Alkaline Phosphatase Total Protein Albumin Globulin Albumin/Globulin Ratio ABG Interpretation ABG results: 04/18/25 04/18/25 04/18/25 04:40 06:27 10:30 ABG pH 7.28 L 7.33 L 7.36 ABG pCO2 72 H* 67 H 61 H ABG pO2 132 H 60 L D 60 L ABG HCO3 34 H 35 H 34 H ABG O2 Saturation 100 H 93 93 ABG Base Excess 6 H 7 H 8 H 04/19/25 08:53 ABG pH 7.47 H D ABG pCO2 45 D ABG pO2 66 L ABG HCO3 33 H ABG O2 Saturation 96 ABG Base Excess 8 H Quality Measures Quality Measures VTE therapy Advance care planning discussed with:: patient Assessment & Plan Assessment Current Active Medications: Generic Name Dose Route Start Last Admin Trade Name Freq PRN Reason Stop Dose Admin Acetaminophen 650 mg 04/22/25 20:43 04/22/25 20:52 Acetaminophen 325 Mg Tablet PO 05/22/25 20:42 650 mg Q6HR PRN Administration pain and Fever >100.4 Hydrocodone Bitart/Acetaminophen 1 tab 04/30/25 02:06 04/30/25 11:36 Hydrocodone/Apap 5/325 Tablet PO 05/05/25 02:05 1 tab Q6HR PRN Administration PAIN SCALE 4-10(Mod-Sev Amiodarone HCl 200 mg 04/13/25 09:00 04/30/25 09:41 Amiodarone Hcl 200 Mg Tablet GT 05/13/25 08:59 200 mg QDAY KOURTNEY Administration Amlodipine Besylate 10 mg 04/13/25 09:00 04/30/25 09:36 Amlodipine Besylate 5 Mg Tablet GT 05/13/25 08:59 10 mg QDAY KOURTNEY Administration Artificial Tears 0 drop 04/14/25 19:33 Artificial Tears 225 Drop/15 Ml Btl BOTH EYES 05/14/25 19:32 PRN PRN TO KEEP EYES MOIST Ascorbic Acid 500 mg 04/17/25 21:00 04/30/25 09:42 Ascorbic Acid 250 Mg Tablet GT 05/17/25 20:59 500 mg BID KOURTNEY Administration Bumetanide 2 mg 04/21/25 09:00 04/30/25 05:31 Bumetanide Inj 0.25 Mg/Ml Vial 4 Ml IVP 05/21/25 08:59 2 mg BIDD KOURTNEY Administration Dextrose 25 ml 04/12/25 23:32 04/24/25 05:27 Dextrose 50%-Water Inj 50 Ml Syringe IV 05/12/25 23:31 25 ml Q15MIN PRN Administration BG 50-70 responsive npo pt Dextrose 50 ml 04/12/25 23:32 Dextrose 50%-Water Inj 50 Ml Syringe IV 05/12/25 23:31 Q15MIN PRN BG <50 OR BG <70 & pt unresponsive Glucagon 1 mg 04/12/25 23:32 Glucagon Inj 1 Mg Vial IM Q15MIN PRN BG <70, and no IV access Heparin Sodium (Porcine) 3,000 unit 04/24/25 13:46 04/29/25 11:04 Heparin Sod Inj 1000 Unit/Ml Vial 10 Ml INDWELLCAT 05/08/25 13:45 3,000 unit PRN PRN Administration DIALYSIS Albumin Human 25 gm in 100 mls @ 100 mls/min 04/24/25 11:52 Albuminar-25 Ivpb IV PRN PRN DIALYSIS Heparin Sodium/Dextrose 25,000 unit in 250 mls @ 22.085 mls/hr 04/29/25 16:30 04/30/25 07:23 Heparin In D5w Ivpb IV 05/13/25 16:29 12.8 units/kg/hr .[id number] KOURTNEY 26.127 mls/hr Titration Protocol 10.82 UNITS/KG/HR Insulin Glargine 38 unit 04/13/25 09:00 04/30/25 09:42 Insulin Glargine (Lantus) 5 Unit/0.05 Ml (Per 5 Units) SC 05/13/25 08:59 38 unit QDAY KOURTNEY Administration Insulin Human Lispro 0 unit 04/13/25 00:00 04/30/25 05:24 Insulin Lispro (Admelog) 1 Unit/0.01 Ml Unit SC 05/13/25 00:00 Not Given Q6HR [facility] Protocol Lansoprazole 30 mg 04/14/25 21:00 04/30/25 09:42 Lansoprazole 30 Mg Tab.Rap. GT 05/13/25 08:59 30 mg BID KOURTNEY Administration Metoprolol Tartrate 100 mg 04/17/25 10:15 04/30/25 09:41 Metoprolol Tartrate 25 Mg Tablet GT 05/17/25 10:14 100 mg BID KOURTNEY Administration Ondansetron HCl 4 mg 04/12/25 23:27 04/17/25 05:28 Ondansetron Inj 2 Mg/Ml Inj 2 Ml IVP 05/12/25 23:26 4 mg Q6H PRN Administration NAUSEA OR VOMITING Protocol Pharmacy Consult 1 each 04/24/25 08:43 Pharmacy Renal Dose Adjustment 1 Ea XX 05/24/25 08:42 PRN PRN CONSULT Zinc Sulfate 220 mg 04/18/25 09:00 04/30/25 09:41 Zinc Sulfate 220 Mg Capsule GT 05/18/25 08:59 220 mg QDAY KOURTNEY Administration Plan 64-year-old male with past medical history of DM2, hypertension, A-fib, and Jehova's witness was admitted to the ICU on 02/27/2025 for shock and acute on chronic hypoxic respiratory failure. He is s/p laparoscopic J-tube placement from [facility]. #Acute kidney injury-- seems to be in Ischemic ATN #Hypermagnesemia, resolved Pending CMP Patient will likely need long-term dialysis as patient is currently in ischemic ATN Patient will need to go to LTAC as patient will need dialysis and mechanical ventilation Currently has Vas-Cath UOP: 2110 mL Hepatitis panel unremarkable in February 2025 2.1 L goal fluid removal during dialysis today Pt to be on MWF dialysis schedule Plan: ? Fuller catheter ? Avoid nephrotoxic agents ? Renally dose medicines ? Trend CMP and electrolytes ?Given improving renal function and urine output, will consider holding off on 1 dialysis session. #Right diastolic CHF #Decubitus ulcer #Chronic back pain #Jejunostomy tube #Acute on Chronic Hypoxic Hypercapnic Respiratory Failure #Obesity hypoventilation syndrome and obstructive sleep apnea #Tracheostomy #Hx of A-fib #Right internal jugular venous thrombosis #Right arm swelling #Morbid obesity #DM2 Above handled by primary hospitalist team Patient seen and care discussed with my attending physician, Dr. Teressa Tobar pgy 2 Attending Provider Attestation/Addendum Patient seen and examined with resident physician Dr. Tobar. Note reviewed, agree with findings and recommendations. Patient alert and awake. S/p debridement. Next dialysis scheduled for tomorrow
[2025-04-30] MEDS: HEPARIN SOD INJ 5000 UNIT/ML VIAL 4000 UNIT IV (15:36)
[2025-04-30] MEDS: Heparin/D5w 25K 250 ML Ivpb 25,000 UNIT/250 ML BAG 30.209 UNIT IV (15:41)
[2025-04-30] MEDS: INSULIN LISPRO (AdmeLOG) 1 UNIT/0.01 ML UNIT SC (18:15)
[2025-04-30 22:51] LABS: Partial Thromboplastin Time > 139.0 Seconds (22.0-36.0)
[2025-05-01] VITALS (14 sets, daily range): BP systolic 102–121; BP diastolic 68–88; PULSE 58–94; RESP 17–31; TEMP 36.1–36.4; O2SAT 48–98; BMI 69.9
[2025-05-01] MEDS: Heparin/D5w 25K 250 ML Ivpb 25,000 UNIT/250 ML BAG 24.086 UNIT IV ×3 (01:44→23:46)
[2025-05-01] MEDS: BUMETANIDE INJ 0.25 MG/ML VIAL 4 ML 2 MG IVP ×2 (05:22→18:17)
[2025-05-01 06:44] LABS: Basophils # (Auto) 0.1 Thou/mm3 (0.0-0.2); Basophils % (Auto) 1 % (0-2.5); Eosinophils # (Auto) 0.3 Thou/mm3 (0.0-0.5); Eosinophils % (Auto) 3 % (0-10); Hematocrit 27.6 % (41.0-53.0); Hemoglobin 8.9 g/dL (13.5-16.0); Immature Granulocytes Auto 0.12 Thou/mm3 (0.00-0.00); Lymphocytes # (Auto) 3.3 Thou/mm3 (1.0-4.8); Lymphocytes % (Auto) 30 % (10-50); Mean Corpuscular HGB Conc 32.2 g/dl (31.0-37.0); Mean Corpuscular Hemoglobin 28.6 pg (25.0-35.0); Mean Corpuscular Volume 89 fL (80-100); Monocytes # (Auto) 1.4 Thou/mm3 (0.0-0.8); Monocytes % (Auto) 12 % (0-12); Neutrophils # (Auto) 6.1 Thou/mm3 (1.8-7.7); Neutrophils % (Auto) 54 % (37-80); Nucleated Red Blood Cell # 0.00 Thou/mm3 (0.00-0.00); Nucleated Red Blood Cell % 0 /100 WBC (0); Platelet Count 301 Thou/mm3 (140-440); RDW Standard Deviation 56.5 fL (35.1-43.9); Red Blood Count 3.11 Miln/mm3 (4.50-5.90); White Blood Count 11.3 Thou/mm3 (3.8-10.6)
[2025-05-01 07:17] LABS: Alanine Aminotransferase < 7 U/L (10-49); Albumin, Serum 3.2 gm/dL (3.4-4.8); Albumin/Globulin Ratio 1.3 (1.2-2.2); Alkaline Phosphatase 174 U/L (46-116); Anion Gap 8 (7-16); Aspartate Amino Transferase 16 U/L (0-34); BUN/Creatinine Ratio 19 Ratio (12-20); Bilirubin,Total 0.3 mg/dL (0.3-1.2); Blood Urea Nitrogen 62 mg/dL (9-23); Calcium 8.5 mg/dL (8.3-10.6); Calcium (Corrected) 9.1 mg/dL (8.5-10.1); Carbon Dioxide 32.2 mMol/L (20.0-31.0); Chloride 97 mMol/L (98-107); Creatinine (Component) 3.2 mg/dL (0.6-1.3); Estimated Creatinine Clearance 38.8 mL/min (>60); Globulin 2.5 gm/dL (2.3-3.5); Glucose 127 mg/dL (74-106); Osmolality,Calculated 293 (275-295); Potassium 3.8 mMol/L (3.4-5.1); Sodium 137 mMol/L (136-145); Total Protein 5.7 gm/dL (5.7-8.2); eGFR 21 See Note
[2025-05-01 07:39] LABS: Partial Thromboplastin Time 78.6 Seconds (22.0-36.0)
[2025-05-01 08:03] LABS: Magnesium 2.3 mg/dL (1.6-2.6); Phosphorous 4.3 mg/dL (2.4-5.1)
[2025-05-01] MEDS: ZINC SULFATE 220 MG CAPSULE GT (09:00)
[2025-05-01] MEDS: METOPROLOL TARTRATE 25 MG TABLET 100 MG GT ×2 (09:00→21:23)
[2025-05-01] MEDS: AMIODARONE HCL 200 MG TABLET GT (09:00)
[2025-05-01] MEDS: ASCORBIC ACID 250 MG TABLET 500 MG GT ×2 (09:00→21:24)
[2025-05-01] MEDS: LANSOPRAZOLE 30 MG TAB.RAP.DR GT ×2 (09:01→21:24)
--- NOTE | 2025-05-01 09:07 | PC.SS ---
Addendum entered by Janessa Ramírez 05/01/25 15:36: EDUARDO has sent updated inquiry to [facility] including Hep panels, per Jose's request. Addendum entered by Janessa Ramírez 05/01/25 12:49: SS spoke to Baldev Gonzalez at [phone] from [facility] who explained they can accommodate patients with trach with dialysis but they are currently full (no beds available). SS has spoken to Jose from [facility] phone# [phone] who states they can accept pt with temporary dialysis cath as long as it is not a femoral line, peg, trach, blow by at day, and vent at night. Jose states he has received updated inquiry from yesterday. Pt is aware and is agreeable to [facility]. Original Note: Follow up note: Pt still has temporary dialysis cath. Pt is on blow by day and vent at night. Wound Care. EDUARDO has left voicemail for Jose at [facility] to check if they can accept pt with temporary dialysis cath. Pt is on heprin drip.
--- NOTE | 2025-05-01 09:08 | ESPR_ITS ---
Documentation for date of: 05/01/25 Subjective Subjective Brief History: 64M with HTN, DMII, atrial fibrillation, history of gastric bypass, and super morbid obesity (BMI 68) who was initially admitted on 02/27/25 for shock and respiratory failure s/p tracheostomy, transferred to [facility] for jejunostomy placement and now back at [facility] on heparin gtt for IJ thrombus, noted to have an unstageable decubitus ulcer for which general surgery was consulted. Pt denies any pain to the area, is comfortable with tracheostomy set to supplemental oxygen, and heparin gtt and tube feeds have both been held since midnight Narrative: No acute events since procedure Mon, wound vac has been functioning Exam Vital Signs Temp Pulse Resp BP Pulse Ox O2 Del Method O2 Flow Rate 97.2 F 92 22 H 121/79 93 L Mechanical Ventilation 65 05/01/25 08:00 05/01/25 09:00 05/01/25 08:00 05/01/25 09:00 05/01/25 08:00 05/01/25 08:00 05/01/25 04:00 FiO2 60 05/01/25 06:41 Routine Respiratory Exam Respiratory: Present no resp distress Routine Back/Spine/Pelvis Exam Comments: sacral decubitus ulcer with mild malodor, no keeley necrotic tissue, minimal oozing which was controlled with direct pressure Results Results: Laboratory Laboratory results: results reviewed Assessment & Plan Plan 64M with HTN, DMII, atrial fibrillation, history of gastric bypass, and super morbid obesity (BMI 68) who was initially admitted on 02/27/25 for shock and respiratory failure s/p tracheostomy, now s/p jejunstomy placement noted to have an unstageable sacral decubitus ulcer now s/p excisional debridement with wound vac placement 04/29, gradually recovering Wound vac changed today, will change MWF while inpatient Please contact me with concerns or questions Procedures Procedures Excisional debridement of sacral decubitus ulcer, washout, placement of wound VAC
--- NOTE | 2025-05-01 09:16 | PD.RESPRO ---
Documentation for date of: 05/01/25 Subjective Subjective Interval history: Mr. Ortega is a 64-year-old male with a past medical history of type 2 diabetes mellitus, history of ATN, A-fib, hypertension, severe right-sided heart failure, HFpEF, severe BASIA, status post tracheostomy and jejunostomy, patient was previously admitted here for hypoxic respiratory failure requiring mechanical ventilation, was later transferred out to [facility] for jejunostomy tube placement, complicated by abdominal abscess, patient is now transferred back to [facility] for further management. The patient is noted to have pneumonia and acute hypoxic respiratory failure, requiring mechanical ventilation, nephrology was consulted as patient's renal function continues to worsen. Patient had previously required hemodialysis for ATN, but is a poor dialysis candidate outpatient. Patient noted to have significant fluid overload. Team gave 1 dose of Bumex with mild worsening of renal function. 500 cc bolus was given. Renal consultation requested for worsening renal failure in the setting of fluid overload. 04/29/2025: Patient examined at bedside today. No acute overnight events. Pending electrolyte labs. White count 11, hemoglobin 9.5, urine output 2114 milliliters. Patient currently in dialysis currently, goal fluid removal 2.1 L. Currently on mechanical ventilation. Pt to get debridement of sacral wound today. No complaints this time. 04/30/2025 patient is evaluated at the bedside, no acute overnight events, currently on trach collar, noted improvement in swelling, urine output adequate, will consider holding off on session of hemodialysis and continuing monitoring of renal function and urine output. Wound VAC to sacral wound draining serosanguineous fluid. 05/01/2025 patient evaluated bedside, reported no active complaints, improvement in swelling, continue holding hemodialysis, urine output adequate. Will keep hemodialysis catheter and reevaluate tomorrow if need for continued hemodialysis. Exam Vital Signs Temp Pulse Resp BP Pulse Ox O2 Del Method O2 Flow Rate 97.2 F 92 22 H 121/79 93 L Mechanical Ventilation 65 05/01/25 08:00 05/01/25 09:00 05/01/25 08:00 05/01/25 09:00 05/01/25 08:00 05/01/25 08:00 05/01/25 04:00 FiO2 60 05/01/25 06:41 Narrative Exam General: AAOx3, lying down, severely morbidly obese, comfortable, swelling left upper extrenmity HEENT: Dry mucous membranes, conjunctiva clear, EOMI, PERRLA, trachestomy Cardiovascular: Ejection systolic murmur, radial pulses +2 bilat, irregularly irregular, Pulmonary: Currently on mechanical ventilation and not blow-by GI: No tenderness to light or deep palpitation, no guarding, rigidity, rebound tenderness or distension, J-tube present Extremities: Trace edema in lower extremities bilaterally, dorsalis pedis pulses +2 bilaterally, Back: Decubitis ulcer, no bone visualization Neuro: AAOx3, no focal motor or sensory deficits in the UE or LE bilat Objective Labs 05/02/25 19:04 05/02/25 02:00 Labs: Laboratory Results - last 24 hr 04/30/25 04/30/25 04/30/25 08:22 14:21 21:43 WBC RBC Hgb Hct MCV MCH MCHC RDW Std Deviation Plt Count Neut % (Auto) Lymph % (Auto) [place] % (Auto) Eos % (Auto) Baso % (Auto) Neut # (Auto) Lymph # (Auto) [place] # (Auto) Eos # (Auto) Baso # (Auto) Immature Gran # (Auto) Absolute Nucleated RBC Immature Gran % Nucleated RBC % APTT 45.9 H > 139.0 H* D Sodium Potassium Chloride Carbon Dioxide Anion Gap BUN Creatinine Estim Creat Clear Calc eGFR BUN/Creatinine Ratio Glucose Calculated Osmolality Calcium Corrected Calcium Phosphorus 4.3 Magnesium 2.3 Total Bilirubin AST ALT Alkaline Phosphatase Total Protein Albumin Globulin Albumin/Globulin Ratio 05/01/25 06:00 WBC 11.3 H RBC 3.11 L Hgb 8.9 L Hct 27.6 L MCV 89 MCH 28.6 MCHC 32.2 RDW Std Deviation 56.5 H Plt Count 301 Neut % (Auto) 54 Lymph % (Auto) 30 [place] % (Auto) 12 Eos % (Auto) 3 Baso % (Auto) 1 Neut # (Auto) 6.1 Lymph # (Auto) 3.3 [place] # (Auto) 1.4 H Eos # (Auto) 0.3 Baso # (Auto) 0.1 Immature Gran # (Auto) 0.12 H Absolute Nucleated RBC 0.00 Immature Gran % 1 H Nucleated RBC % 0 APTT 78.6 H D Sodium 137 Potassium 3.8 D Chloride 97 L Carbon Dioxide 32.2 H Anion Gap 8 BUN 62 H Creatinine 3.2 H Estim Creat Clear Calc 38.8 L eGFR 21 L BUN/Creatinine Ratio 19 Glucose 127 H Calculated Osmolality 293 Calcium 8.5 Corrected Calcium 9.1 Phosphorus 4.3 Magnesium 2.3 Total Bilirubin 0.3 AST 16 ALT < 7 L Alkaline Phosphatase 174 H Total Protein 5.7 Albumin 3.2 L Globulin 2.5 Albumin/Globulin Ratio 1.3 ABG Interpretation ABG results: 04/18/25 04/18/25 04/18/25 04:40 06:27 10:30 ABG pH 7.28 L 7.33 L 7.36 ABG pCO2 72 H* 67 H 61 H ABG pO2 132 H 60 L D 60 L ABG HCO3 34 H 35 H 34 H ABG O2 Saturation 100 H 93 93 ABG Base Excess 6 H 7 H 8 H 04/19/25 08:53 ABG pH 7.47 H D ABG pCO2 45 D ABG pO2 66 L ABG HCO3 33 H ABG O2 Saturation 96 ABG Base Excess 8 H Quality Measures Quality Measures VTE therapy Advance care planning discussed with:: patient Assessment & Plan Assessment Current Active Medications: Generic Name Dose Route Start Last Admin Trade Name Freq PRN Reason Stop Dose Admin Acetaminophen 650 mg 05/01/25 08:47 Acetaminophen 325 Mg Tablet PO 05/22/25 20:42 Q6HR PRN pain 1-3 OR Fever >100.4 Hydrocodone Bitart/Acetaminophen 1 tab 04/30/25 02:06 04/30/25 23:14 Hydrocodone/Apap 5/325 Tablet PO 05/05/25 02:05 1 tab Q6HR PRN Administration PAIN SCALE 4-10(Mod-Sev Amiodarone HCl 200 mg 04/13/25 09:00 05/01/25 09:00 Amiodarone Hcl 200 Mg Tablet GT 05/13/25 08:59 200 mg QDAY KOURTNEY Administration Amlodipine Besylate 10 mg 04/13/25 09:00 05/01/25 09:00 Amlodipine Besylate 5 Mg Tablet GT 05/13/25 08:59 10 mg QDAY KOURTNEY Administration Artificial Tears 0 drop 04/14/25 19:33 Artificial Tears 225 Drop/15 Ml Btl BOTH EYES 05/14/25 19:32 PRN PRN TO KEEP EYES MOIST Ascorbic Acid 500 mg 04/17/25 21:00 05/01/25 09:00 Ascorbic Acid 250 Mg Tablet GT 05/17/25 20:59 500 mg BID KOURTNEY Administration Bumetanide 2 mg 04/21/25 09:00 05/01/25 05:22 Bumetanide Inj 0.25 Mg/Ml Vial 4 Ml IVP 05/21/25 08:59 2 mg BIDD KOURTNEY Administration Dextrose 25 ml 04/12/25 23:32 04/24/25 05:27 Dextrose 50%-Water Inj 50 Ml Syringe IV 05/12/25 23:31 25 ml Q15MIN PRN Administration BG 50-70 responsive npo pt Dextrose 50 ml 04/12/25 23:32 Dextrose 50%-Water Inj 50 Ml Syringe IV 05/12/25 23:31 Q15MIN PRN BG <50 OR BG <70 & pt unresponsive Glucagon 1 mg 04/12/25 23:32 Glucagon Inj 1 Mg Vial IM Q15MIN PRN BG <70, and no IV access Heparin Sodium (Porcine) 3,000 unit 04/24/25 13:46 04/29/25 11:04 Heparin Sod Inj 1000 Unit/Ml Vial 10 Ml INDWELLCAT 05/08/25 13:45 3,000 unit PRN PRN Administration DIALYSIS Albumin Human 25 gm in 100 mls @ 100 mls/min 04/24/25 11:52 Albuminar-25 Ivpb IV PRN PRN DIALYSIS Heparin Sodium/Dextrose 25,000 unit in 250 mls @ 22.085 mls/hr 04/29/25 16:30 05/01/25 08:29 Heparin In D5w Ivpb IV 05/13/25 16:29 11.8 units/kg/hr .[id number] [facility] 24.086 mls/hr Titration Protocol 10.82 UNITS/KG/HR Insulin Glargine 38 unit 04/13/25 09:00 04/30/25 09:42 Insulin Glargine (Lantus) 5 Unit/0.05 Ml (Per 5 Units) SC 05/13/25 08:59 38 unit QDAY KOURTNEY Administration Insulin Human Lispro 0 unit 04/13/25 00:00 05/01/25 05:13 Insulin Lispro (Admelog) 1 Unit/0.01 Ml Unit SC 05/13/25 00:00 Not Given Q6HR [facility] Protocol Lansoprazole 30 mg 04/14/25 21:00 05/01/25 09:01 Lansoprazole 30 Mg Tab. GT 05/13/25 08:59 30 mg BID KOURTNEY Administration Metoprolol Tartrate 100 mg 04/17/25 10:15 05/01/25 09:00 Metoprolol Tartrate 25 Mg Tablet GT 05/17/25 10:14 100 mg BID KOURNTEY Administration Ondansetron HCl 4 mg 04/12/25 23:27 04/17/25 05:28 Ondansetron Inj 2 Mg/Ml Inj 2 Ml IVP 05/12/25 23:26 4 mg Q6H PRN Administration NAUSEA OR VOMITING Protocol Pharmacy Consult 1 each 04/24/25 08:43 Pharmacy Renal Dose Adjustment 1 Ea XX 05/24/25 08:42 PRN PRN CONSULT Zinc Sulfate 220 mg 04/18/25 09:00 05/01/25 09:00 Zinc Sulfate 220 Mg Capsule GT 05/18/25 08:59 220 mg QDAY KOURTNEY Administration Plan 64-year-old male with past medical history of DM2, hypertension, A-fib, and Jehova's witness was admitted to the ICU on 02/27/2025 for shock and acute on chronic hypoxic respiratory failure. He is s/p laparoscopic J-tube placement from [facility]. #Acute kidney injury-- seems to be in Ischemic ATN #Hypermagnesemia, resolved Pending CMP Patient will likely need long-term dialysis as patient is currently in ischemic ATN Patient will need to go to LTAC as patient will need dialysis and mechanical ventilation Currently has Vas-Cath UOP: 2110 mL Hepatitis panel unremarkable in February 2025 2.1 L goal fluid removal during dialysis today Pt to be on MWF dialysis schedule Plan: ? Fuller catheter ? Avoid nephrotoxic agents ? Renally dose medicines ? Trend CMP and electrolytes ?Given improving renal function and urine output, will consider holding off on 1 dialysis session. ?05/01/2025 continue holding hemodialysis, urine output adequate. Will keep hemodialysis catheter and reevaluate tomorrow if need for continued hemodialysis. #Right diastolic CHF #Decubitus ulcer #Chronic back pain #Jejunostomy tube #Acute on Chronic Hypoxic Hypercapnic Respiratory Failure #Obesity hypoventilation syndrome and obstructive sleep apnea #Tracheostomy #Hx of A-fib #Right internal jugular venous thrombosis #Right arm swelling #Morbid obesity #DM2 Above handled by primary hospitalist team Patient seen and care discussed with my attending physician, Dr. Teressa Tobar pgy 2 Attending Provider Attestation/Addendum Patient seen and examined with resident physician Dr. Tobar. Note reviewed, agree with findings and recommendations. Patient alert and awake. S/p debridement. Patient made good urine. Hold dialysis today. Watch for renal recovery. Creatinine stable
[2025-05-01] MEDS: INSULIN GLARGINE (Lantus) 5 UNIT/0.05 ML (PER 5 UNITS) 38 UNIT SC (09:18)
[2025-05-01] MEDS: HYDROcodone/APAP 5/325 TABLET 1 TAB PO (09:21)
[2025-05-01] MEDS: SODIUM CL IRRIG SOLN 1,000 ML BAG IRRIG (10:37)
--- NOTE | 2025-05-01 11:30 | PD.RESPRO ---
Documentation for date of: 05/01/25 Subjective Subjective Interval history: Patient seen and examined at bedside. Discussed with respiratory therapist, will try to transition patient to blow-by in a.m. as patient's fluid overload status is improved significantly. Patient continues to have good urine output, last session of dialysis was on Tuesday, dialysis being held for now by nephrology, will monitor renal function Will continue heparin drip, patient receiving wound care, wound VAC was replaced today by general surgery. Otherwise patient is stable, can be discharged to long-term acute care facility. Exam Vital Signs Temp Pulse Resp BP Pulse Ox O2 Del Method O2 Flow Rate 97.2 F 61 22 H 121/79 92 L Mechanical Ventilation 12 05/01/25 08:00 05/01/25 10:17 05/01/25 10:17 05/01/25 09:00 05/01/25 10:17 05/01/25 08:00 05/01/25 10:17 FiO2 70 05/01/25 10:17 Narrative Exam Physical Exam General: Awake and in no acute distress. Tracheostomy site clean, on mechanical ventilation, nods to questions, responsive. HEENT: Normocephalic, atraumatic, mucous membranes moist. Heart: Irregular rhythm, rate controlled, no murmurs. Possible ejection systolic murmur. Lungs: Bilateral coarse crackles. Abdomen: Soft, obese, nondistended, nontender, positive bowel sounds. ?No guarding or rebound tenderness. Neurologic: Alert and oriented x3, no gross neurological deficit, and patient able to move all 4 extremities. Extremities: 1+ bilateral lower extremity edema, 1+ edema right upper extremity. Skin: No rash or ecchymoses. Patient has sacral decubitus ulcer. Objective Labs 05/06/25 06:19 05/06/25 06:19 Labs: Laboratory Results - last 24 hr 04/30/25 04/30/25 05/01/25 14:21 21:43 06:00 WBC 11.3 H RBC 3.11 L Hgb 8.9 L Hct 27.6 L MCV 89 MCH 28.6 MCHC 32.2 RDW Std Deviation 56.5 H Plt Count 301 Neut % (Auto) 54 Lymph % (Auto) 30 [place] % (Auto) 12 Eos % (Auto) 3 Baso % (Auto) 1 Neut # (Auto) 6.1 Lymph # (Auto) 3.3 [place] # (Auto) 1.4 H Eos # (Auto) 0.3 Baso # (Auto) 0.1 Immature Gran # (Auto) 0.12 H Absolute Nucleated RBC 0.00 Immature Gran % 1 H Nucleated RBC % 0 APTT 45.9 H > 139.0 H* D 78.6 H D Sodium 137 Potassium 3.8 D Chloride 97 L Carbon Dioxide 32.2 H Anion Gap 8 BUN 62 H Creatinine 3.2 H Estim Creat Clear Calc 38.8 L eGFR 21 L BUN/Creatinine Ratio 19 Glucose 127 H Calculated Osmolality 293 Calcium 8.5 Corrected Calcium 9.1 Phosphorus 4.3 Magnesium 2.3 Total Bilirubin 0.3 AST 16 ALT < 7 L Alkaline Phosphatase 174 H Total Protein 5.7 Albumin 3.2 L Globulin 2.5 Albumin/Globulin Ratio 1.3 ABG Interpretation ABG results: 04/18/25 04/18/25 04/18/25 04:40 06:27 10:30 ABG pH 7.28 L 7.33 L 7.36 ABG pCO2 72 H* 67 H 61 H ABG pO2 132 H 60 L D 60 L ABG HCO3 34 H 35 H 34 H ABG O2 Saturation 100 H 93 93 ABG Base Excess 6 H 7 H 8 H 04/19/25 08:53 ABG pH 7.47 H D ABG pCO2 45 D ABG pO2 66 L ABG HCO3 33 H ABG O2 Saturation 96 ABG Base Excess 8 H Quality Measures Quality Measures VTE therapy Advance care planning discussed with:: patient Assessment & Plan Assessment Current Active Medications: Generic Name Dose Route Start Last Admin Trade Name Freq PRN Reason Stop Dose Admin Acetaminophen 650 mg 05/01/25 08:47 Acetaminophen 325 Mg Tablet PO 05/22/25 20:42 Q6HR PRN pain 1-3 OR Fever >100.4 Hydrocodone Bitart/Acetaminophen 1 tab 04/30/25 02:06 05/01/25 09:21 Hydrocodone/Apap 5/325 Tablet PO 05/05/25 02:05 1 tab Q6HR PRN Administration PAIN SCALE 4-10(Mod-Sev Amiodarone HCl 200 mg 04/13/25 09:00 05/01/25 09:00 Amiodarone Hcl 200 Mg Tablet GT 05/13/25 08:59 200 mg QDAY KOURTNEY Administration Amlodipine Besylate 10 mg 04/13/25 09:00 05/01/25 09:00 Amlodipine Besylate 5 Mg Tablet GT 05/13/25 08:59 10 mg QDAY KOURTNEY Administration Artificial Tears 0 drop 04/14/25 19:33 Artificial Tears 225 Drop/15 Ml Btl BOTH EYES 05/14/25 19:32 PRN PRN TO KEEP EYES MOIST Ascorbic Acid 500 mg 04/17/25 21:00 05/01/25 09:00 Ascorbic Acid 250 Mg Tablet GT 05/17/25 20:59 500 mg BID KOURTNEY Administration Bumetanide 2 mg 04/21/25 09:00 05/01/25 05:22 Bumetanide Inj 0.25 Mg/Ml Vial 4 Ml IVP 05/21/25 08:59 2 mg BIDD KOURTNEY Administration Dextrose 25 ml 04/12/25 23:32 04/24/25 05:27 Dextrose 50%-Water Inj 50 Ml Syringe IV 05/12/25 23:31 25 ml Q15MIN PRN Administration BG 50-70 responsive npo pt Dextrose 50 ml 04/12/25 23:32 Dextrose 50%-Water Inj 50 Ml Syringe IV 05/12/25 23:31 Q15MIN PRN BG <50 OR BG <70 & pt unresponsive Glucagon 1 mg 04/12/25 23:32 Glucagon Inj 1 Mg Vial IM Q15MIN PRN BG <70, and no IV access Heparin Sodium (Porcine) 3,000 unit 04/24/25 13:46 04/29/25 11:04 Heparin Sod Inj 1000 Unit/Ml Vial 10 Ml INDWELLCAT 05/08/25 13:45 3,000 unit PRN PRN Administration DIALYSIS Albumin Human 25 gm in 100 mls @ 100 mls/min 04/24/25 11:52 Albuminar-25 Ivpb IV PRN PRN DIALYSIS Heparin Sodium/Dextrose 25,000 unit in 250 mls @ 22.085 mls/hr 04/29/25 16:30 05/01/25 08:29 Heparin In D5w Ivpb IV 05/13/25 16:29 11.8 units/kg/hr .[id number] KOURTNEY 24.086 mls/hr Titration Protocol 10.82 UNITS/KG/HR Insulin Glargine 38 unit 04/13/25 09:00 05/01/25 09:18 Insulin Glargine (Lantus) 5 Unit/0.05 Ml (Per 5 Units) SC 05/13/25 08:59 38 unit QDAY KOURTNEY Administration Insulin Human Lispro 0 unit 04/13/25 00:00 05/01/25 05:13 Insulin Lispro (Admelog) 1 Unit/0.01 Ml Unit SC 05/13/25 00:00 Not Given Q6HR KOURTNEY Protocol Lansoprazole 30 mg 04/14/25 21:00 05/01/25 09:01 Lansoprazole 30 Mg Tab.Rap. GT 05/13/25 08:59 30 mg BID KOURTNEY Administration Metoprolol Tartrate 100 mg 04/17/25 10:15 05/01/25 09:00 Metoprolol Tartrate 25 Mg Tablet GT 05/17/25 10:14 100 mg BID KOURTNEY Administration Ondansetron HCl 4 mg 04/12/25 23:27 04/17/25 05:28 Ondansetron Inj 2 Mg/Ml Inj 2 Ml IVP 05/12/25 23:26 4 mg Q6H PRN Administration NAUSEA OR VOMITING Protocol Pharmacy Consult 1 each 04/24/25 08:43 Pharmacy Renal Dose Adjustment 1 Ea XX 05/24/25 08:42 PRN PRN CONSULT Sodium Chloride 0 ml 05/01/25 09:15 05/01/25 10:37 Sodium Cl Irrig Soln 1,000 Ml Bag IRRIG 05/31/25 09:14 1,000 ml QDAY KOURTNEY Administration Zinc Sulfate 220 mg 04/18/25 09:00 05/01/25 09:00 Zinc Sulfate 220 Mg Capsule GT 05/18/25 08:59 220 mg QDAY KOURTNEY Administration Plan Assessment 64-year-old male with past medical history of DM2, hypertension, A-fib, and Jehova's witness was admitted to the ICU on 02/27/2025 for shock and acute hypoxic respiratory failure. He is s/p laparoscopic J-tube placement from [facility]. #Fluid overload #Acute on chronic hypoxic respiratory failure #Acute kidney injury-suspicion of ischemic ATN #Started on hemodialysis 04/24/2025, status post temporary dialysis catheter placement Patient looks clinically hypervolemic at this time 04/20 ? Attempt was made to place Fuller catheter however unable to pass catheter due to significant resistance and attempt was terminated. Discussed with nursing about possibility of weighing briefs daily. Patient had temporary hemodialysis catheter placed 04/24, receiving dialysis had 1 L removed on 04/24, 2 L on 04/25, 2.14 on 04/26, 2.1 L on 04/29 Plan: -Will continue IV Bumex 2 mg IV daily -Continue heparin GGT -Monitor urine output -Avoid nephrotoxic agents -Renally dose medication #Decubitus ulcer status post excisional debridement of sacral decubitus ulcer, washout and placement of wound VAC, 04/29 #Chronic back pain Not requiring surgical intervention at this time Unstageable sacral ulcer Debridement bedside on 04/17/2025 Wound reassessed by wound care team and general surgeon on 04/24/202504/29: excisional debridement of sacral decubitus ulcer, washout and placement of wound VAC. Plan: - Continue wound care - General Surgery consulted, appreciate recommendations - Heparin GTT - [place] 5 as needed - Skin barrier creams PRN - Referral to wound care # Right diastolic CHF # Stage III diastolic dysfunction # Fluid overload status, resolving Patient appears clinically dry at this point, will hold on diuresis at this time ECHO 04/29/2025: Normal LV size and function. Estimated EF of 65%. Grade III Diastolic Dysfunction. Right ventricle is dilated with mild RV dysfunction. RVSP 47mmHg. RAP 15mmHg. Severe biatrial dilation. Moderate to Severe AOV calcification with no stenosis Mild tricuspid regurgitation No pericardial effusion. Plan: - Continue strict daily body weight - Continue hemodialysis per nephrology - Daily weights - Strict I&O #Jejunostomy tube #Abdominal abscess Patient report said that there was an intra-abdominal abscess that have could have been from a perforated ulcer in the past See also note reviewed, mentions that patient likely had a marginal ulcer, but also was not seen on EGD without, currently patient has no abdominal tenderness and is totally asymptomatic. No current drain at this time Patient is status post laparoscopic J-tube placement and is currently on feeds Patient will continue to have this tube and will likely go to a long-term care facility with this until patient can swallow safely Plan: ? Completed antibiotic treatment. ? Monitor vitals closely #Aspiration Pneumonia, completed treatment #Obesity hypoventilation syndrome and obstructive sleep apnea #Dysphagia #Tracheostomy Patient was intubated and ventilated due to hypoxic respiratory failure, was unable to be extubated. Tracheostomy was placed. PEG tube was able to be placed, patient transferred to [facility] for laparoscopic J-tube placement, is now being transferred back after procedure successfully completed Plan: - Dietary consulted, recommendations appreciated - Respiratory therapy consulted - Blow-by during the day, mechanical ventilation at night as needed at baseline, currently on mechanical ventilation - Completed antibiotic treatment # Atrial fibrillation, by history [id number] score of 3 points indicating 3.2% risk of stroke per year HAS-BLED: 0 Currently rhythm controlled Plan: - Xarelto held in anticipation of surgery - Heparin GTT - Amiodarone 200 mg QDAY - Metoprolol succinate 100 twice daily - Keep potassium and magnesium above 4 and 2 respectively - Telemetry #Right internal jugular venous thrombosis #Right arm swelling Continuing free water flushes, patient has gone multiple days of heparin drip since 04/01 Plan: ? Xarelto 20 mg qday being held - Heparin GTT #Morbid obesity #DM2 A1C 7.6 on 03/05/2025 Patient has a BMI of 79.5->68.7 Plan: - ISS scale 2 - Hypoglycemia protocol ordered - 38 units of Lantus. #Health Maintenance Disposition: Telemetry DVT prophylaxis: Xarelto being held, heparin drip GI prophylaxis: Protonix Diet: 2Cal Tube Feeds with 30 cc/hour water flush CODE STATUS: Full code Patient plan of care was discussed with the attending physician, Dr. Mendoza. Elizabeth Lamas PGY1 Attending Provider Attestation/Addendum 64-year-old with morbid obesity with subsequent obesity hypoventilation syndrome requiring tracheostomy and J-tube placement, hypertension, type 2 diabetes, atrial fibrillation, right internal jugular DVT and acute kidney injury secondary to ischemic ATN requiring multiple sessions of hemodialysis and sacral ulcers status post wound VAC currently being treated for acute on chronic hypoxic respiratory failure, ischemic ATN.I reviewed above note and agree with findings and plans. I have also personally examined the patient with medicine team and went over assessment and plan with medical team including internal control analyst and resident physician.
[2025-05-01] MEDS: INSULIN LISPRO (AdmeLOG) 1 UNIT/0.01 ML UNIT SC (18:15)
[2025-05-02] VITALS (20 sets, daily range): BP systolic 99–151; BP diastolic 68–102; PULSE 60–100; RESP 13–29; TEMP 36.1–36.6; O2SAT 49–98; BMI 69.5; BMI 71.2
[2025-05-02] MEDS: INSULIN LISPRO (AdmeLOG) 1 UNIT/0.01 ML UNIT SC ×2 (00:26→17:52)
[2025-05-02] MEDS: RINGERS LACTATED 1000 ML 500 ML 150 ML IV (01:54)
--- NOTE | 2025-05-02 02:29 | XR_ITS ---
Examination: Abdomen AP single view Technique: AP portable supine abdomen, single view Exam date and time: May 02, 2025 0408 hours INDICATIONS: No bowel movement 7 days. FINDINGS: Moderate to large amounts of stool throughout the colon No obstruction No free air Bilateral moderate to advanced hip osteoarthritis IMPRESSION: Moderate to large amounts of stool throughout the colon
--- NOTE | 2025-05-02 02:39 | EVENTNT_ITS ---
Documentation for date of: 05/02/25 Event Note Event Note: Rapid response was called due to patient having bed linens soaked with blood upon turning patient to change by nursing staff. At this time patient's blood pressure had been stable and patient was not tachycardic. Throughout the day patient's blood pressure and heart rate have been stable. Morning hemoglobin was 8.9 and patient was currently on heparin drip given that he has a right internal jugular vein thrombosis. Patient is a Jehovah witness therefore no blood products can be given and risks of bleeding on heparin drip and possibility for need of blood products was discussed, but patient still stated no blood products. Patient was responsive and only complaining of some mild dizziness and weakness. Patient did mention that he was trying to push very hard to have a bowel movement, this could explain to some level the amount of blood seen in the bed linen. Patient has not had a bowel movement in the last 7 days and has not been passing gas either. Wound VAC was alarming that it had a leakage, which was changed earlier today. Wound VAC had a total of 500 mL of output for the dayshift and since last output check there was minimal output in the wound VAC, which could be explained by the possible leakage of the wound VAC. At this time patient was given IV fluids 500 cc at 150 mL/h as patient is also in the hospital due to fluid overload status and will gently give fluids depending on repeat hemoglobin. Ordered hemoglobin, PTT, and KUB as well. If hemoglobin is stable will go ahead and continue with heparin drip as risk outweighs benefits of patient not being anticoagulated at this time given the right internal jugular vein thrombosis. Case disclosed with Attending Dr. Daniel Cornejo PGY1 Disclaimer: Even though this this note was dictated by speech recognition and even though it was carefully revised there may still be minor errors in casino games dealer due to voice recognition software.
[2025-05-02 02:41] LABS: Hematocrit 31.4 % (41.0-53.0); Hemoglobin 10.2 g/dL (13.5-16.0)
[2025-05-02 02:54] LABS: Partial Thromboplastin Time 71.2 Seconds (22.0-36.0)
[2025-05-02] MEDS: HYDROcodone/APAP 5/325 TABLET 1 TAB PO (03:27)
[2025-05-02 03:31] LABS: Hematocrit 28.6 % (41.0-53.0); Hemoglobin 9.4 g/dL (13.5-16.0)
--- NOTE | 2025-05-02 03:45 | PC.RT ---
@0230 rapid response called, pt placed on ventilator for approximately 1 hour, pt placed on blow by @0320.
[2025-05-02 03:59] LABS: Basophils # (Auto) 0.1 Thou/mm3 (0.0-0.2); Basophils % (Auto) 0 % (0-2.5); Eosinophils # (Auto) 0.6 Thou/mm3 (0.0-0.5); Eosinophils % (Auto) 4 % (0-10); Hematocrit 28.6 % (41.0-53.0); Hemoglobin 9.3 g/dL (13.5-16.0); Immature Granulocytes Auto 0.14 Thou/mm3 (0.00-0.00); Lymphocytes # (Auto) 3.4 Thou/mm3 (1.0-4.8); Lymphocytes % (Auto) 25 % (10-50); Mean Corpuscular HGB Conc 32.5 g/dl (31.0-37.0); Mean Corpuscular Hemoglobin 28.4 pg (25.0-35.0); Mean Corpuscular Volume 88 fL (80-100); Monocytes # (Auto) 1.4 Thou/mm3 (0.0-0.8); Monocytes % (Auto) 10 % (0-12); Neutrophils # (Auto) 8.0 Thou/mm3 (1.8-7.7); Neutrophils % (Auto) 59 % (37-80); Nucleated Red Blood Cell # 0.00 Thou/mm3 (0.00-0.00); Nucleated Red Blood Cell % 0 /100 WBC (0); Platelet Count 286 Thou/mm3 (140-440); RDW Standard Deviation 55.6 fL (35.1-43.9); Red Blood Count 3.27 Miln/mm3 (4.50-5.90); White Blood Count 13.5 Thou/mm3 (3.8-10.6)
[2025-05-02 04:27] LABS: Alanine Aminotransferase < 7 U/L (10-49); Albumin, Serum 3.3 gm/dL (3.4-4.8); Albumin/Globulin Ratio 1.4 (1.2-2.2); Alkaline Phosphatase 164 U/L (46-116); Anion Gap 9 (7-16); Aspartate Amino Transferase 16 U/L (0-34); BUN/Creatinine Ratio 18 Ratio (12-20); Bilirubin,Total 0.3 mg/dL (0.3-1.2); Blood Urea Nitrogen 62 mg/dL (9-23); Calcium 8.5 mg/dL (8.3-10.6); Calcium (Corrected) 9.1 mg/dL (8.5-10.1); Carbon Dioxide 29.5 mMol/L (20.0-31.0); Chloride 98 mMol/L (98-107); Creatinine (Component) 3.4 mg/dL (0.6-1.3); Estimated Creatinine Clearance 36.5 mL/min (>60); Globulin 2.4 gm/dL (2.3-3.5); Glucose 121 mg/dL (74-106); Osmolality,Calculated 290 (275-295); Potassium 4.1 mMol/L (3.4-5.1); Sodium 136 mMol/L (136-145); Total Protein 5.7 gm/dL (5.7-8.2); eGFR 19 See Note
[2025-05-02] MEDS: BUMETANIDE INJ 0.25 MG/ML VIAL 4 ML 2 MG IVP ×2 (05:31→18:00)
[2025-05-02] MEDS: INSULIN GLARGINE (Lantus) 5 UNIT/0.05 ML (PER 5 UNITS) 38 UNIT SC (08:39)
[2025-05-02] MEDS: ZINC SULFATE 220 MG CAPSULE GT (08:40)
[2025-05-02] MEDS: ASCORBIC ACID 250 MG TABLET 500 MG GT ×2 (08:41→21:06)
[2025-05-02] MEDS: LANSOPRAZOLE 30 MG TAB.RAP.DR GT ×2 (08:41→21:06)
[2025-05-02] MEDS: AMIODARONE HCL 200 MG TABLET GT (08:42)
[2025-05-02] MEDS: METOPROLOL TARTRATE 25 MG TABLET 100 MG GT ×2 (08:44→21:06)
[2025-05-02] MEDS: ferumoxytoL (NON-ESRD) 510 MG in SODIUM CHLORIDE 0.9% 100 ML 234 MG IV (08:45)
--- NOTE | 2025-05-02 08:57 | PC.NURSE ---
was here to see pt,talked to him regarding blood transfusion,pt, stated he is Jehovah witness decline blood transfusion,I was @ bedside with .
[2025-05-02] MEDS: POLYETHYLENE GLYCOL 17 GM PACKET 34 GM GT (09:05)
--- NOTE | 2025-05-02 09:33 | PC.SS ---
Follow up note: Pt started bleeding from wound. Dr. Gannon to follow up if pt will require out patient dialysis. Pt is possible dc to [facility] once he medically stable.
--- NOTE | 2025-05-02 09:45 | PC.WOUND ---
DR. Negron at bedside, assessing coccxygeal ulcer. Assisted with suture placement, bleeding stopped. Orders received for gauze packing daily. Ok to discharge to LTach.
[2025-05-02] MEDS: EPOETIN ALFA-EPBX INJ 10,000 UNIT/ML VIAL (ESRD) 10000 UNIT SC (10:20)
--- NOTE | 2025-05-02 11:25 | ESPR_ITS ---
Documentation for date of: 05/02/25 Subjective Subjective Interval history: Mr. Ortega is a 64-year-old male with a past medical history of type 2 diabetes mellitus, history of ATN, A-fib, hypertension, severe right-sided heart failure, HFpEF, severe BASIA, status post tracheostomy and jejunostomy, patient was previously admitted here for hypoxic respiratory failure requiring mechanical ventilation, was later transferred out to [facility] for jejunostomy tube placement, complicated by abdominal abscess, patient is now transferred back to [facility] for further management. The patient is noted to have pneumonia and acute hypoxic respiratory failure, requiring mechanical ventilation, nephrology was consulted as patient's renal function continues to worsen. Patient had previously required hemodialysis for ATN, but is a poor dialysis candidate outpatient. Patient noted to have significant fluid overload. Team gave 1 dose of Bumex with mild worsening of renal function. 500 cc bolus was given. Renal consultation requested for worsening renal failure in the setting of fluid overload. 04/29/2025: Patient examined at bedside today. No acute overnight events. Pending electrolyte labs. White count 11, hemoglobin 9.5, urine output 2114 milliliters. Patient currently in dialysis currently, goal fluid removal 2.1 L. Currently on mechanical ventilation. Pt to get debridement of sacral wound today. No complaints this time. 04/30/2025 patient is evaluated at the bedside, no acute overnight events, currently on trach collar, noted improvement in swelling, urine output adequate, will consider holding off on session of hemodialysis and continuing monitoring of renal function and urine output. Wound VAC to sacral wound draining serosanguineous fluid. 05/01/2025 patient evaluated bedside, reported no active complaints, improvement in swelling, continue holding hemodialysis, urine output adequate. Will keep hemodialysis catheter and reevaluate tomorrow if need for continued hemodialysis. 05/02/2025 patient evaluated bedside, no active complaints, currently on blow-by, saturating well, overnight urine output 3 L, creatinine 3.4, will continue monitoring, reevaluate tomorrow if need for hemodialysis, primary team plans to discharge patient to LTAC, will keep dialysis catheter in place, if needed for future hemodialysis as patient had similar presentation with ATN during prior hospitalization requiring transient hemodialysis before being taken off. Exam Vital Signs Temp Pulse Resp BP Pulse Ox O2 Del Method O2 Flow Rate 96.9 F 84 17 118/74 92 L Blow-by 12 06/19/25 08:00 05/02/25 08:44 05/02/25 08:00 05/02/25 08:44 05/02/25 08:00 05/02/25 08:00 05/02/25 08:00 FiO2 45 05/02/25 08:00 Narrative Exam Physical Exam General: Awake and in no acute distress. Responsive, able to write his responses, follow commands, on blow-by, saturating well. HEENT: Normocephalic, atraumatic, mucous membranes moist. Heart: Irregular rhythm, rate controlled, no murmurs. Possible ejection systolic murmur. Lungs: Bilateral coarse crackles. Abdomen: Soft, obese, nondistended, nontender, positive bowel sounds. ?No guarding or rebound tenderness. Neurologic: Alert and oriented x3, no gross neurological deficit, and patient able to move all 4 extremities. Extremities: 1+ bilateral lower extremity edema, 1+ edema right upper extremity. Skin: No rash or ecchymoses. Patient has sacral decubitus ulcer. Objective Labs 05/02/25 19:04 05/02/25 02:00 Labs: Laboratory Results - last 24 hr 05/02/25 05/02/25 05/02/25 02:00 02:00 02:00 WBC 13.5 H RBC 3.27 L Hgb 9.3 L 10.2 L Hct 28.6 L 31.4 L MCV 88 MCH 28.4 MCHC 32.5 RDW Std Deviation 55.6 H Plt Count 286 Neut % (Auto) 59 Lymph % (Auto) 25 [place] % (Auto) 10 Eos % (Auto) 4 Baso % (Auto) 0 Neut # (Auto) 8.0 H Lymph # (Auto) 3.4 [place] # (Auto) 1.4 H Eos # (Auto) 0.6 H Baso # (Auto) 0.1 Immature Gran # (Auto) 0.14 H Absolute Nucleated RBC 0.00 Immature Gran % 1 H Nucleated RBC % 0 APTT 71.2 H Sodium 136 Potassium 4.1 Chloride 98 Carbon Dioxide 29.5 Anion Gap 9 BUN 62 H Creatinine 3.4 H Estim Creat Clear Calc 36.5 L eGFR 19 L BUN/Creatinine Ratio 18 Glucose 121 H Calculated Osmolality 290 Calcium 8.5 Corrected Calcium 9.1 Total Bilirubin 0.3 AST 16 ALT < 7 L Alkaline Phosphatase 164 H Total Protein 5.7 Albumin 3.3 L Globulin 2.4 Albumin/Globulin Ratio 1.4 05/02/25 03:14 WBC RBC Hgb 9.4 L Hct 28.6 L MCV MCH MCHC RDW Std Deviation Plt Count Neut % (Auto) Lymph % (Auto) [place] % (Auto) Eos % (Auto) Baso % (Auto) Neut # (Auto) Lymph # (Auto) [place] # (Auto) Eos # (Auto) Baso # (Auto) Immature Gran # (Auto) Absolute Nucleated RBC Immature Gran % Nucleated RBC % APTT Sodium Potassium Chloride Carbon Dioxide Anion Gap BUN Creatinine Estim Creat Clear Calc eGFR BUN/Creatinine Ratio Glucose Calculated Osmolality Calcium Corrected Calcium Total Bilirubin AST ALT Alkaline Phosphatase Total Protein Albumin Globulin Albumin/Globulin Ratio ABG Interpretation ABG results: 04/18/25 04/18/25 04/18/25 04:40 06:27 10:30 ABG pH 7.28 L 7.33 L 7.36 ABG pCO2 72 H* 67 H 61 H ABG pO2 132 H 60 L D 60 L ABG HCO3 34 H 35 H 34 H ABG O2 Saturation 100 H 93 93 ABG Base Excess 6 H 7 H 8 H 04/19/25 08:53 ABG pH 7.47 H D ABG pCO2 45 D ABG pO2 66 L ABG HCO3 33 H ABG O2 Saturation 96 ABG Base Excess 8 H Quality Measures Quality Measures VTE therapy Advance care planning discussed with:: patient Assessment & Plan Assessment Current Active Medications: Generic Name Dose Route Start Last Admin Trade Name Freq PRN Reason Stop Dose Admin Acetaminophen 650 mg 05/01/25 08:47 Acetaminophen 325 Mg Tablet PO 05/22/25 20:42 Q6HR PRN pain 1-3 OR Fever >100.4 Hydrocodone Bitart/Acetaminophen 1 tab 04/30/25 02:06 05/02/25 03:27 Hydrocodone/Apap 5/325 Tablet PO 05/05/25 02:05 1 tab Q6HR PRN Administration PAIN SCALE 4-10(Mod-Sev Amiodarone HCl 200 mg 04/13/25 09:00 05/02/25 08:42 Amiodarone Hcl 200 Mg Tablet GT 05/13/25 08:59 200 mg QDAY KOURTNEY Administration Amlodipine Besylate 10 mg 04/13/25 09:00 05/02/25 08:43 Amlodipine Besylate 5 Mg Tablet GT 05/13/25 08:59 10 mg QDAY KOURTNEY Administration Artificial Tears 0 drop 04/14/25 19:33 Artificial Tears 225 Drop/15 Ml Btl BOTH EYES 05/14/25 19:32 PRN PRN TO KEEP EYES MOIST Ascorbic Acid 500 mg 04/17/25 21:00 05/02/25 08:41 Ascorbic Acid 250 Mg Tablet GT 05/17/25 20:59 500 mg BID KOURTNEY Administration Bumetanide 2 mg 04/21/25 09:00 05/02/25 05:31 Bumetanide Inj 0.25 Mg/Ml Vial 4 Ml IVP 05/21/25 08:59 2 mg BIDD KOURTNEY Administration Dextrose 25 ml 04/12/25 23:32 04/24/25 05:27 Dextrose 50%-Water Inj 50 Ml Syringe IV 05/12/25 23:31 25 ml Q15MIN PRN Administration BG 50-70 responsive npo pt Dextrose 50 ml 04/12/25 23:32 Dextrose 50%-Water Inj 50 Ml Syringe IV 05/12/25 23:31 Q15MIN PRN BG <50 OR BG <70 & pt unresponsive Glucagon 1 mg 04/12/25 23:32 Glucagon Inj 1 Mg Vial IM Q15MIN PRN BG <70, and no IV access Heparin Sodium (Porcine) 3,000 unit 04/24/25 13:46 04/29/25 11:04 Heparin Sod Inj 1000 Unit/Ml Vial 10 Ml INDWELLCAT 05/08/25 13:45 3,000 unit PRN PRN Administration DIALYSIS Albumin Human 25 gm in 100 mls @ 100 mls/min 04/24/25 11:52 Albuminar-25 Ivpb IV PRN PRN DIALYSIS Heparin Sodium/Dextrose 25,000 unit in 250 mls @ 22.085 mls/hr 04/29/25 16:30 05/02/25 03:52 Heparin In D5w Ivpb IV 05/13/25 16:29 11.8 units/kg/hr .[id number] KOURTNEY 24.086 mls/hr Titration Protocol 10.82 UNITS/KG/HR Insulin Glargine 38 unit 04/13/25 09:00 05/02/25 08:39 Insulin Glargine (Lantus) 5 Unit/0.05 Ml (Per 5 Units) SC 05/13/25 08:59 38 unit QDAY KOURTNEY Administration Insulin Human Lispro 0 unit 04/13/25 00:00 05/02/25 05:34 Insulin Lispro (Admelog) 1 Unit/0.01 Ml Unit SC 05/13/25 00:00 Not Given Q6HR KOURTNEY Protocol Lansoprazole 30 mg 04/14/25 21:00 05/02/25 08:41 Lansoprazole 30 Mg Tab. GT 05/13/25 08:59 30 mg BID KOURTNEY Administration Metoprolol Tartrate 100 mg 04/17/25 10:15 05/02/25 08:44 Metoprolol Tartrate 25 Mg Tablet GT 05/17/25 10:14 100 mg BID KOURTNEY Administration Ondansetron HCl 4 mg 04/12/25 23:27 04/17/25 05:28 Ondansetron Inj 2 Mg/Ml Inj 2 Ml IVP 05/12/25 23:26 4 mg Q6H PRN Administration NAUSEA OR VOMITING Protocol Pharmacy Consult 1 each 04/24/25 08:43 Pharmacy Renal Dose Adjustment 1 Ea XX 05/24/25 08:42 PRN PRN CONSULT Polyethylene Glycol 34 gm 05/02/25 09:00 05/02/25 09:05 Polyethylene Glycol 17 Gm Packet GT 06/01/25 08:59 34 gm QDAY KOURTNEY Administration Sennosides 2 tab 05/02/25 09:00 05/02/25 08:41 Senna Tablet GT 06/01/25 08:59 2 tab QDAY KOURTNEY Administration Protocol Sodium Chloride 0 ml 05/01/25 09:15 05/02/25 10:19 Sodium Cl Irrig Soln 1,000 Ml Bag IRRIG 05/31/25 09:14 Not Given QDAY KOURTNEY Zinc Sulfate 220 mg 04/18/25 09:00 05/02/25 08:40 Zinc Sulfate 220 Mg Capsule GT 05/18/25 08:59 220 mg QDAY KOURTNEY Administration Plan 64-year-old male with past medical history of DM2, hypertension, A-fib, and Jehova's witness was admitted to the ICU on 02/27/2025 for shock and acute on chronic hypoxic respiratory failure. He is s/p laparoscopic J-tube placement from [facility]. #Acute kidney injury-- seems to be in Ischemic ATN #Hypermagnesemia, resolved Pending CMP Patient will likely need long-term dialysis as patient is currently in ischemic ATN Patient will need to go to LTAC as patient will need dialysis and mechanical ventilation Currently has Vas-Cath UOP: 2110 mL Hepatitis panel unremarkable in February 2025 2.1 L goal fluid removal during dialysis today Pt to be on MWF dialysis schedule Plan: ? Fulelr catheter ? Avoid nephrotoxic agents ? Renally dose medicines ? Trend CMP and electrolytes ?Given improving renal function and urine output, will consider holding off on 1 dialysis session. ?05/01/2025 continue holding hemodialysis, urine output adequate. Will keep hemodialysis catheter and reevaluate tomorrow if need for continued hemodialysis. ?05/02/2025 overnight urine output 3 L, creatinine 3.4, will continue monitoring, reevaluate tomorrow if need for hemodialysis, primary team plans to discharge patient to LTAC, will keep dialysis catheter in place, if needed for future hemodialysis as patient had similar presentation with ATN during prior hospitalization requiring transient hemodialysis before being taken off. #Right diastolic CHF #Decubitus ulcer #Chronic back pain #Jejunostomy tube #Acute on Chronic Hypoxic Hypercapnic Respiratory Failure #Obesity hypoventilation syndrome and obstructive sleep apnea #Tracheostomy #Hx of A-fib #Right internal jugular venous thrombosis #Right arm swelling #Morbid obesity #DM2 Above handled by primary hospitalist team Patient seen and care discussed with my attending physician, Dr. Teressa Tobar pgy 2 Attending Provider Attestation/Addendum Patient seen and examined with resident physician Dr. Tobar. Note reviewed, agree with findings and recommendations. Patient alert and awake. S/p debridement. Hold dialysis today. Patient made more than 2 and half liters of urine. hope there will be renal recovery
--- NOTE | 2025-05-02 11:40 | PC.SS ---
Addendum entered by Janessa Ramírez 05/02/25 15:38: SS has faxed Jose SOTORR assessment. Addendum entered by [facility] Hensleyma 05/02/25 15:03: SS informed patient's health insurance physicians are requesting peer to peer. SS was informed by Rosa JEFFERSON from patient's health insurance, they have 72 hours to review chart and they have not denied anything therefore, peer to peer is not necessary at this time. Dr. Mendoza and physician residents are aware. Addendum entered by Janessa Ramírez 05/02/25 12:31: SS spoke to Patricia from [facility] yesterday 05-01-25 who explained if pt is on blow by then RT rider is not required during transportation. If pt is on vent then pt will require an RT rider during transportation. Addendum entered by Janessa Ramírez 05/02/25 12:26: SS spoke to Rosa, lead case manager from [facility] who explained based on the physician's even note their Population Geneticist, Dr. Barr is going to wait 48 hours to review patient's information. Pt requires to be medically stable for dc. SS has received phone call from Jose who explained his team has reached out to patient's health insurance, [employer] and was informed to follow up on Tuesday. Original Note: SS spoke to Jose from [facility] who states [facility] has accepted pt [address] [address] phone# [phone] SS met with pt, mom, and dad (bedside nurse, Shannon was present) SS was informed by Physician Resident, Dr. Millan pt is on blow by in day (bedside nurseShannon has confirmed).
--- NOTE | 2025-05-02 11:48 | PD.SURPROG ---
Documentation for date of: 05/02/25 Subjective Subjective Brief History: 64M with HTN, DMII, atrial fibrillation, history of gastric bypass, and super morbid obesity (BMI 68) who was initially admitted on 02/27/25 for shock and respiratory failure s/p tracheostomy, transferred to [facility] for jejunostomy placement and now back at [facility] on heparin gtt for IJ thrombus, noted to have an unstageable decubitus ulcer for which general surgery was consulted. Pt denies any pain to the area, is comfortable with tracheostomy set to supplemental oxygen, and heparin gtt and tube feeds have both been held since midnight Narrative: Overnight wound vac leaked and bleeding was noted under the dressing pt has remained hemodynamically normal, Hgb 9.4 this am which is within the range it has been this past week, pt has no complaints Exam Vital Signs Temp Pulse Resp BP Pulse Ox O2 Del Method O2 Flow Rate 96.9 F 81 17 118/74 92 L Blow-by 12 05/02/25 08:00 05/02/25 11:30 05/02/25 08:00 05/02/25 08:44 05/02/25 08:00 05/02/25 08:00 05/02/25 08:00 FiO2 45 05/02/25 08:00 Constitutional Constitutional: no acute distress Routine Respiratory Exam Respiratory: Present no resp distress Routine Back/Spine/Pelvis Exam Comments: sacral decubitus ulcer with small arterial bleeds at the left and right inferior aspects of the wound, both areas controlled with suture ligation. Wound bed has fibrinous tissue throughout Results Results: Laboratory Laboratory results: results reviewed Assessment & Plan Plan 64M with HTN, DMII, atrial fibrillation, history of gastric bypass, and super morbid obesity (BMI 68) who was initially admitted on 02/27/25 for shock and respiratory failure s/p tracheostomy, now s/p jejunstomy placement noted to have an unstageable sacral decubitus ulcer now s/p excisional debridement with wound vac placement 04/29, with bleeding from wound overnight now controlled with suture ligation Given appearance of wound with fibrinous tissue will transition back to wet-dry dressings daily OK from my standpoint for dc to LTAC Procedures Procedures Excisional debridement of sacral decubitus ulcer, washout, placement of wound VAC
[2025-05-02] MEDS: Heparin/D5w 25K 250 ML Ivpb 25,000 UNIT/250 ML BAG 24.086 UNIT IV (13:27)
--- NOTE | 2025-05-02 14:26 | PD.RESPRO ---
Documentation for date of: 05/02/25 Subjective Subjective Interval history: Patient seen and examined at bedside. Overnight patient had rapid response for significant bleeding from wound VAC site Patient was evaluated by general surgery this morning, small bleeders were cauterized, packing placed. Case was discussed with general surgeon, per general surgery patient is stable to be discharged to LTAC. Patient is stable on blow-by, tolerating well. Patient had 2 bowel movements today, was started on bowel regimen. Patient had around 3 L urine output, creatinine 3.4 today, nephrology is following, patient does have a temporary dialysis catheter. Will monitor patient for 24 hours, otherwise patient is stable for discharge. Patient is [employer], he refuses all blood products, nurse at bedside witnessed. Patient will be given erythropoietin x 1 and ferumoxytol IV x 1 to improve underlying anemia. Exam Vital Signs Temp Pulse Resp BP Pulse Ox O2 Del Method O2 Flow Rate 96.9 F 81 17 118/74 92 L Blow-by 12 05/02/25 08:00 05/02/25 11:30 05/02/25 08:00 05/02/25 08:44 05/02/25 08:00 05/02/25 08:00 05/02/25 08:00 FiO2 45 05/02/25 08:00 Narrative Exam Physical Exam General: Awake and in no acute distress. Tracheostomy site clean, on mechanical ventilation, nods to questions, responsive. HEENT: Normocephalic, atraumatic, mucous membranes moist. Heart: Irregular rhythm, rate controlled, no murmurs. Possible ejection systolic murmur. Lungs: Bilateral coarse crackles. Abdomen: Soft, obese, nondistended, nontender, positive bowel sounds. ?No guarding or rebound tenderness. Neurologic: Alert and oriented x3, no gross neurological deficit, and patient able to move all 4 extremities. Extremities: trace bilateral lower extremity edema, 1+ edema right upper extremity. Skin: No rash or ecchymoses. Patient has sacral decubitus ulcer. Objective Labs 05/06/25 06:19 05/06/25 06:19 Labs: Laboratory Results - last 24 hr 05/02/25 05/02/25 05/02/25 02:00 02:00 02:00 WBC 13.5 H RBC 3.27 L Hgb 9.3 L 10.2 L Hct 28.6 L 31.4 L MCV 88 MCH 28.4 MCHC 32.5 RDW Std Deviation 55.6 H Plt Count 286 Neut % (Auto) 59 Lymph % (Auto) 25 [place] % (Auto) 10 Eos % (Auto) 4 Baso % (Auto) 0 Neut # (Auto) 8.0 H Lymph # (Auto) 3.4 [place] # (Auto) 1.4 H Eos # (Auto) 0.6 H Baso # (Auto) 0.1 Immature Gran # (Auto) 0.14 H Absolute Nucleated RBC 0.00 Immature Gran % 1 H Nucleated RBC % 0 APTT 71.2 H Sodium 136 Potassium 4.1 Chloride 98 Carbon Dioxide 29.5 Anion Gap 9 BUN 62 H Creatinine 3.4 H Estim Creat Clear Calc 36.5 L eGFR 19 L BUN/Creatinine Ratio 18 Glucose 121 H Calculated Osmolality 290 Calcium 8.5 Corrected Calcium 9.1 Total Bilirubin 0.3 AST 16 ALT < 7 L Alkaline Phosphatase 164 H Total Protein 5.7 Albumin 3.3 L Globulin 2.4 Albumin/Globulin Ratio 1.4 05/02/25 03:14 WBC RBC Hgb 9.4 L Hct 28.6 L MCV MCH MCHC RDW Std Deviation Plt Count Neut % (Auto) Lymph % (Auto) [place] % (Auto) Eos % (Auto) Baso % (Auto) Neut # (Auto) Lymph # (Auto) [place] # (Auto) Eos # (Auto) Baso # (Auto) Immature Gran # (Auto) Absolute Nucleated RBC Immature Gran % Nucleated RBC % APTT Sodium Potassium Chloride Carbon Dioxide Anion Gap BUN Creatinine Estim Creat Clear Calc eGFR BUN/Creatinine Ratio Glucose Calculated Osmolality Calcium Corrected Calcium Total Bilirubin AST ALT Alkaline Phosphatase Total Protein Albumin Globulin Albumin/Globulin Ratio ABG Interpretation ABG results: 04/18/25 04/18/25 04/18/25 04:40 06:27 10:30 ABG pH 7.28 L 7.33 L 7.36 ABG pCO2 72 H* 67 H 61 H ABG pO2 132 H 60 L D 60 L ABG HCO3 34 H 35 H 34 H ABG O2 Saturation 100 H 93 93 ABG Base Excess 6 H 7 H 8 H 04/19/25 08:53 ABG pH 7.47 H D ABG pCO2 45 D ABG pO2 66 L ABG HCO3 33 H ABG O2 Saturation 96 ABG Base Excess 8 H Quality Measures Quality Measures VTE therapy Advance care planning discussed with:: patient Assessment & Plan Assessment Current Active Medications: Generic Name Dose Route Start Last Admin Trade Name Malou PRN Reason Stop Dose Admin Acetaminophen 650 mg 05/01/25 08:47 Acetaminophen 325 Mg Tablet PO 05/22/25 20:42 Q6HR PRN pain 1-3 OR Fever >100.4 Hydrocodone Bitart/Acetaminophen 1 tab 04/30/25 02:06 05/02/25 03:27 Hydrocodone/Apap 5/325 Tablet PO 05/05/25 02:05 1 tab Q6HR PRN Administration PAIN SCALE 4-10(Mod-Sev Amiodarone HCl 200 mg 04/13/25 09:00 05/02/25 08:42 Amiodarone Hcl 200 Mg Tablet GT 05/13/25 08:59 200 mg QDAY KUORTNEY Administration Amlodipine Besylate 10 mg 04/13/25 09:00 05/02/25 08:43 Amlodipine Besylate 5 Mg Tablet GT 05/13/25 08:59 10 mg QDAY KOURTNEY Administration Artificial Tears 0 drop 04/14/25 19:33 Artificial Tears 225 Drop/15 Ml Btl BOTH EYES 05/14/25 19:32 PRN PRN TO KEEP EYES MOIST Ascorbic Acid 500 mg 04/17/25 21:00 05/02/25 08:41 Ascorbic Acid 250 Mg Tablet GT 05/17/25 20:59 500 mg BID KOURTNEY Administration Bumetanide 2 mg 04/21/25 09:00 05/02/25 05:31 Bumetanide Inj 0.25 Mg/Ml Vial 4 Ml IVP 05/21/25 08:59 2 mg BIDD KOURTNEY Administration Dextrose 25 ml 04/12/25 23:32 04/24/25 05:27 Dextrose 50%-Water Inj 50 Ml Syringe IV 05/12/25 23:31 25 ml Q15MIN PRN Administration BG 50-70 responsive npo pt Dextrose 50 ml 04/12/25 23:32 Dextrose 50%-Water Inj 50 Ml Syringe IV 05/12/25 23:31 Q15MIN PRN BG <50 OR BG <70 & pt unresponsive Glucagon 1 mg 04/12/25 23:32 Glucagon Inj 1 Mg Vial IM Q15MIN PRN BG <70, and no IV access Heparin Sodium (Porcine) 3,000 unit 04/24/25 13:46 04/29/25 11:04 Heparin Sod Inj 1000 Unit/Ml Vial 10 Ml INDWELLCAT 05/08/25 13:45 3,000 unit PRN PRN Administration DIALYSIS Albumin Human 25 gm in 100 mls @ 100 mls/min 04/24/25 11:52 Albuminar-25 Ivpb IV PRN PRN DIALYSIS Heparin Sodium/Dextrose 25,000 unit in 250 mls @ 22.085 mls/hr 04/29/25 16:30 05/02/25 13:27 Heparin In D5w Ivpb IV 05/13/25 16:29 11.8 units/kg/hr .[id number] KOURTNEY 24.086 mls/hr Administration Protocol 10.82 UNITS/KG/HR Insulin Glargine 38 unit 04/13/25 09:00 05/02/25 08:39 Insulin Glargine (Lantus) 5 Unit/0.05 Ml (Per 5 Units) SC 05/13/25 08:59 38 unit QDAY KOURTNEY Administration Insulin Human Lispro 0 unit 04/13/25 00:00 05/02/25 13:00 Insulin Lispro (Admelog) 1 Unit/0.01 Ml Unit SC 05/13/25 00:00 Not Given Q6HR KOURTNEY Protocol Lansoprazole 30 mg 04/14/25 21:00 05/02/25 08:41 Lansoprazole 30 Mg Tab. GT 05/13/25 08:59 30 mg BID KOURTNEY Administration Metoprolol Tartrate 100 mg 04/17/25 10:15 05/02/25 08:44 Metoprolol Tartrate 25 Mg Tablet GT 05/17/25 10:14 100 mg BID KOURTNEY Administration Ondansetron HCl 4 mg 04/12/25 23:27 04/17/25 05:28 Ondansetron Inj 2 Mg/Ml Inj 2 Ml IVP 05/12/25 23:26 4 mg Q6H PRN Administration NAUSEA OR VOMITING Protocol Pharmacy Consult 1 each 04/24/25 08:43 Pharmacy Renal Dose Adjustment 1 Ea XX 05/24/25 08:42 PRN PRN CONSULT Polyethylene Glycol 34 gm 05/02/25 09:00 05/02/25 09:05 Polyethylene Glycol 17 Gm Packet GT 06/01/25 08:59 34 gm QDAY KOURTNEY Administration Sennosides 2 tab 05/02/25 09:00 05/02/25 08:41 Senna Tablet GT 06/01/25 08:59 2 tab QDAY KOURTNEY Administration Protocol Zinc Sulfate 220 mg 04/18/25 09:00 05/02/25 08:40 Zinc Sulfate 220 Mg Capsule GT 05/18/25 08:59 220 mg QDAY KOURTNEY Administration Plan Assessment 64-year-old male with past medical history of DM2, hypertension, A-fib, and Jehova's witness was admitted to the ICU on 02/27/2025 for shock and acute hypoxic respiratory failure. He is s/p laparoscopic J-tube placement from [facility]. #Acute kidney injury-suspicion of ischemic ATN #Fluid overload, improving #Acute on chronic hypoxic respiratory failure, improving #Started on hemodialysis 04/24/2025, status post temporary dialysis catheter placement Patient looks clinically hypervolemic at this time 04/20 ? Attempt was made to place Fuller catheter however unable to pass catheter due to significant resistance and attempt was terminated. Discussed with nursing about possibility of weighing briefs daily. Patient had temporary hemodialysis catheter placed 04/24, receiving dialysis had 1 L removed on 04/24, 2 L on 04/25, 2.14 on 04/26, 2.1 L on 04/29 Plan: -Will continue IV Bumex 2 mg IV daily -Continue heparin GGT -Monitor urine output -Avoid nephrotoxic agents -Renally dose medication #Decubitus ulcer status post excisional debridement of sacral decubitus ulcer, washout and placement of wound VAC, 04/29 #Chronic back pain Not requiring surgical intervention at this time Unstageable sacral ulcer Debridement bedside on 04/17/2025 Wound reassessed by wound care team and general surgeon on 04/24/202504/29: excisional debridement of sacral decubitus ulcer, washout and placement of wound VAC. 05/02: Patient had significant bleeding overnight, wound VAC leaked. Hemoglobin stable this morning, patient's bleeding from wound overnight was controlled with suture ligation. Wound was assessed by general surgeon, patient was transitioned back to red dry dressings daily. Plan: - Continue wound care - General Surgery consulted, appreciate recommendations - Heparin GTT - [place] 5 as needed - Skin barrier creams PRN - Referral to wound care # Normocytic normochromic anemia Multifactorial. Patient's baseline hemoglobin throughout the hospitalization has been in the range 9?11, patient did have some bleeding from wound VAC site on 05/02 which was controlled by suture ligation by general surgery. - Patient is a [employer], denies any blood transfusion/blood products - Patient will be given erythropoietin x 1 and ferumoxytol IV x 1 to improve underlying anemia. - Follow CBC in a.m. # Right diastolic CHF # Stage III diastolic dysfunction # Fluid overload status, resolving Patient appears clinically dry at this point, will hold on diuresis at this time ECHO 04/29/2025: Normal LV size and function. Estimated EF of 65%. Grade III Diastolic Dysfunction. Right ventricle is dilated with mild RV dysfunction. RVSP 47mmHg. RAP 15mmHg. Severe biatrial dilation. Moderate to Severe AOV calcification with no stenosis Mild tricuspid regurgitation No pericardial effusion. Plan: - Continue strict daily body weight - Continue hemodialysis per nephrology - Daily weights - Strict I&O #Jejunostomy tube #Abdominal abscess Patient report said that there was an intra-abdominal abscess that have could have been from a perforated ulcer in the past See also note reviewed, mentions that patient likely had a marginal ulcer, but also was not seen on EGD without, currently patient has no abdominal tenderness and is totally asymptomatic. No current drain at this time Patient is status post laparoscopic J-tube placement and is currently on feeds Patient will continue to have this tube and will likely go to a long-term care facility with this until patient can swallow safely Plan: ? Completed antibiotic treatment. ? Monitor vitals closely #Aspiration Pneumonia, completed treatment #Obesity hypoventilation syndrome and obstructive sleep apnea #Dysphagia #Tracheostomy Patient was intubated and ventilated due to hypoxic respiratory failure, was unable to be extubated. Tracheostomy was placed. PEG tube was able to be placed, patient transferred to [facility] for [facility] J-tube placement, is now being transferred back after procedure successfully completed Plan: - Dietary consulted, recommendations appreciated - Respiratory therapy consulted - Blow-by during the day, mechanical ventilation at night as needed at baseline, currently on mechanical ventilation - Completed antibiotic treatment # Atrial fibrillation, by history [id number] score of 3 points indicating 3.2% risk of stroke per year HAS-BLED: 0 Currently rhythm controlled Plan: - Xarelto held in anticipation of surgery - Heparin GTT - Amiodarone 200 mg QDAY - Metoprolol succinate 100 twice daily - Keep potassium and magnesium above 4 and 2 respectively - Telemetry #Right internal jugular venous thrombosis #Right arm swelling Continuing free water flushes, patient has gone multiple days of heparin drip since 04/01 Plan: ? Xarelto 20 mg qday being held - Heparin GTT #Morbid obesity #DM2 A1C 7.6 on 03/05/2025 Patient has a BMI of 79.5->68.7 Plan: - ISS scale 2 - Hypoglycemia protocol ordered - 38 units of Lantus. #Health Maintenance Disposition: Telemetry DVT prophylaxis: Xarelto being held, heparin drip GI prophylaxis: Protonix Diet: 2Cal Tube Feeds with 30 cc/hour water flush CODE STATUS: Full code Patient plan of care was discussed with the attending physician, Dr. Mendoza. Elizabeth Lamas PGY1 Attending Provider Attestation/Addendum 64-year-old with morbid obesity with subsequent obesity hypoventilation syndrome requiring tracheostomy and J-tube placement, hypertension, type 2 diabetes, atrial fibrillation, right internal jugular DVT and acute kidney injury secondary to ischemic ATN requiring multiple sessions of hemodialysis and sacral ulcers status post wound VAC currently being treated for acute on chronic hypoxic respiratory failure, ischemic ATN.I reviewed above note and agree with findings and plans. I have also personally examined the patient with medicine team and went over assessment and plan with medical team including rn internal medicine and resident physician.
--- NOTE | 2025-05-02 14:47 | PC.URM ---
T/C to [facility] and spoke with CM about the request to transfer patient to LTAC. The CM tells me that they received the request this morning and they have 72 hours to reply per policy. The CM states that it is too soon to request a peer to peer at this time as the request has not been denied. The CM did share that the medical health researcher is aware that the patient has been unstable off and on and wants to review the chart. T/C to Ree, Director of Care Integration and relayed this information.
--- NOTE | 2025-05-02 18:57 | PD.RESEVENT ---
Documentation for date of: 05/02/25 Event Note Event Note: Rapid Response Room: [facility] Time: 6:42 Reason for Call: Bleeding from sacral wound Patient presentation: Patient with stable vitals, BP 99/77, HR 100, saturating 98% on trach on mechanical ventilator, alert. Nursing staff found patient pad soaked with blood underneath sacral wound, was turned to check the site. Part of packing was peeled back and about a cup of blood gushed out. Patient sacral ulcer was packed earlier today with Dr. Negron and Nadeen horticultural manager. Events: Notified Dr. Negron via phone, discussed plan to stop heparin, apply surgi-cell and silver nitrate, and monitor vitals closely. Assessment: Bleeding secondary to sacral wound, on heparin drip. New orders: Stop heparin drip, stat H&H, Surgi-alex, Silver nitrate. Patient was discussed with the attending, Dr. Alicia. Evi Betts, PGY-2
[2025-05-02 19:49] LABS: Hematocrit 27.9 % (41.0-53.0); Hemoglobin 8.9 g/dL (13.5-16.0)
[2025-05-03] VITALS (15 sets, daily range): BP systolic 104–115; BP diastolic 64–79; PULSE 48–98; RESP 13–30; TEMP 35.9–36.4; O2SAT 52–97; BMI 68.5
[2025-05-03 05:41] LABS: Basophils # (Auto) 0.0 Thou/mm3 (0.0-0.2); Basophils % (Auto) 0 % (0-2.5); Eosinophils # (Auto) 0.4 Thou/mm3 (0.0-0.5); Eosinophils % (Auto) 3 % (0-10); Hematocrit 24.9 % (41.0-53.0); Immature Granulocytes Auto 0.10 Thou/mm3 (0.00-0.00); Lymphocytes # (Auto) 2.7 Thou/mm3 (1.0-4.8); Lymphocytes % (Auto) 20 % (10-50); Mean Corpuscular HGB Conc 31.7 g/dl (31.0-37.0); Mean Corpuscular Hemoglobin 28.1 pg (25.0-35.0); Mean Corpuscular Volume 89 fL (80-100); Monocytes # (Auto) 1.5 Thou/mm3 (0.0-0.8); Monocytes % (Auto) 11 % (0-12); Neutrophils # (Auto) 9.3 Thou/mm3 (1.8-7.7); Neutrophils % (Auto) 66 % (37-80); Nucleated Red Blood Cell # 0.00 Thou/mm3 (0.00-0.00); Nucleated Red Blood Cell % 0 /100 WBC (0); Platelet Count 298 Thou/mm3 (140-440); RDW Standard Deviation 56.4 fL (35.1-43.9); Red Blood Count 2.81 Miln/mm3 (4.50-5.90); White Blood Count 14.1 Thou/mm3 (3.8-10.6)
[2025-05-03 05:54] LABS: Hemoglobin 7.9 g/dL (13.5-16.0)
[2025-05-03 05:56] LABS: Partial Thromboplastin Time 30.5 Seconds (22.0-36.0)
[2025-05-03] MEDS: BUMETANIDE INJ 0.25 MG/ML VIAL 4 ML 2 MG IVP ×2 (05:57→18:13)
[2025-05-03 06:39] LABS: Alanine Aminotransferase < 7 U/L (10-49); Albumin, Serum 3.2 gm/dL (3.4-4.8); Albumin/Globulin Ratio 1.3 (1.2-2.2); Alkaline Phosphatase 146 U/L (46-116); Anion Gap 9 (7-16); Aspartate Amino Transferase 14 U/L (0-34); BUN/Creatinine Ratio 19 Ratio (12-20); Bilirubin,Total 0.3 mg/dL (0.3-1.2); Blood Urea Nitrogen 66 mg/dL (9-23); Calcium 8.9 mg/dL (8.3-10.6); Calcium (Corrected) 9.5 mg/dL (8.5-10.1); Carbon Dioxide 31.5 mMol/L (20.0-31.0); Chloride 97 mMol/L (98-107); Creatinine (Component) 3.4 mg/dL (0.6-1.3); Estimated Creatinine Clearance 36.0 mL/min (>60); Globulin 2.4 gm/dL (2.3-3.5); Glucose 126 mg/dL (74-106); Osmolality,Calculated 294 (275-295); Potassium 4.2 mMol/L (3.4-5.1); Sodium 137 mMol/L (136-145); Total Protein 5.6 gm/dL (5.7-8.2); eGFR 19 See Note
--- NOTE | 2025-05-03 08:52 | PC.SS ---
Follow up note: Pt had rapid response last night for bleeding from the sarcal wound. Pt is on vent at night and blow by in day. Pt is possible to [facility]. [address] [employer] [address] [employer] from patient's health insurance will review patient's information once is medically cleared for 48 hours.
[2025-05-03] MEDS: INSULIN GLARGINE (Lantus) 5 UNIT/0.05 ML (PER 5 UNITS) 38 UNIT SC (08:57)
[2025-05-03] MEDS: METOPROLOL TARTRATE 25 MG TABLET 100 MG GT ×2 (09:05→21:44)
[2025-05-03] MEDS: ZINC SULFATE 220 MG CAPSULE GT (09:05)
[2025-05-03] MEDS: POLYETHYLENE GLYCOL 17 GM PACKET 34 GM GT (09:05)
[2025-05-03] MEDS: AMIODARONE HCL 200 MG TABLET GT (09:06)
[2025-05-03] MEDS: LANSOPRAZOLE 30 MG TAB.RAP.DR GT ×2 (09:07→21:45)
[2025-05-03] MEDS: ASCORBIC ACID 250 MG TABLET 500 MG GT ×2 (09:07→21:44)
--- NOTE | 2025-05-03 09:17 | ESPR_ITS ---
Documentation for date of: 05/03/25 Subjective Subjective Interval history: Mr. Ortega is a 64-year-old male with a past medical history of type 2 diabetes mellitus, history of ATN, A-fib, hypertension, severe right-sided heart failure, HFpEF, severe BASIA, status post tracheostomy and jejunostomy, patient was previously admitted here for hypoxic respiratory failure requiring mechanical ventilation, was later transferred out to [facility] for jejunostomy tube placement, complicated by abdominal abscess, patient is now transferred back to [facility] for further management. The patient is noted to have pneumonia and acute hypoxic respiratory failure, requiring mechanical ventilation, nephrology was consulted as patient's renal function continues to worsen. Patient had previously required hemodialysis for ATN, but is a poor dialysis candidate outpatient. Patient noted to have significant fluid overload. Team gave 1 dose of Bumex with mild worsening of renal function. 500 cc bolus was given. Renal consultation requested for worsening renal failure in the setting of fluid overload. 04/29/2025: Patient examined at bedside today. No acute overnight events. Pending electrolyte labs. White count 11, hemoglobin 9.5, urine output 2114 milliliters. Patient currently in dialysis currently, goal fluid removal 2.1 L. Currently on mechanical ventilation. Pt to get debridement of sacral wound today. No complaints this time. 04/30/2025 patient is evaluated at the bedside, no acute overnight events, currently on trach collar, noted improvement in swelling, urine output adequate, will consider holding off on session of hemodialysis and continuing monitoring of renal function and urine output. Wound VAC to sacral wound draining serosanguineous fluid. 05/01/2025 patient evaluated bedside, reported no active complaints, improvement in swelling, continue holding hemodialysis, urine output adequate. Will keep hemodialysis catheter and reevaluate tomorrow if need for continued hemodialysis. 05/02/2025 patient evaluated bedside, no active complaints, currently on blow-by, saturating well, overnight urine output 3 L, creatinine 3.4, will continue monitoring, reevaluate tomorrow if need for hemodialysis, primary team plans to discharge patient to LTAC, will keep dialysis catheter in place, if needed for future hemodialysis as patient had similar presentation with ATN during prior hospitalization requiring transient hemodialysis before being taken off. 05/03/2025, patient evaluated bedside, on mechanical ventilation, via trach collar, saturating well, urine output 2200 mL overnight, creatinine stable at 3.4, will hold off on hemodialysis, from nephrology standpoint patient can be discharged to LTAC, will keep dialysis catheter in place, if needed for future hemodialysis. Watchful observation of renal function and volume status. Exam Vital Signs Temp Pulse Resp BP Pulse Ox O2 Del Method O2 Flow Rate 97.1 F 84 22 H 115/72 92 L BiPAP 12 05/03/25 08:00 05/03/25 09:06 05/03/25 08:00 05/03/25 09:06 05/03/25 08:00 05/03/25 04:00 05/03/25 04:00 FiO2 65 05/03/25 07:52 Narrative Exam Physical Exam General: Awake and in no acute distress. Responsive, able to write his responses, follow commands, on blow-by, saturating well. HEENT: Normocephalic, atraumatic, mucous membranes moist. Heart: Irregular rhythm, rate controlled, no murmurs. Possible ejection systolic murmur. Lungs: Bilateral coarse crackles. Abdomen: Soft, obese, nondistended, nontender, positive bowel sounds. ?No guarding or rebound tenderness. Neurologic: Alert and oriented x3, no gross neurological deficit, and patient able to move all 4 extremities. Extremities: 1+ bilateral lower extremity edema, 1+ edema right upper extremity. Skin: No rash or ecchymoses. Patient has sacral decubitus ulcer. Objective Labs 05/03/25 05:06 05/03/25 05:06 Labs: Laboratory Results - last 24 hr 05/02/25 05/03/25 19:04 05:06 WBC 14.1 H RBC 2.81 L Hgb 8.9 L 7.9 L Hct 27.9 L 24.9 L MCV 89 MCH 28.1 MCHC 31.7 RDW Std Deviation 56.4 H Plt Count 298 Neut % (Auto) 66 Lymph % (Auto) 20 [place] % (Auto) 11 Eos % (Auto) 3 Baso % (Auto) 0 Neut # (Auto) 9.3 H Lymph # (Auto) 2.7 [place] # (Auto) 1.5 H Eos # (Auto) 0.4 Baso # (Auto) 0.0 Immature Gran # (Auto) 0.10 H Absolute Nucleated RBC 0.00 Immature Gran % 1 H Nucleated RBC % 0 APTT 30.5 D Sodium 137 Potassium 4.2 Chloride 97 L Carbon Dioxide 31.5 H Anion Gap 9 BUN 66 H Creatinine 3.4 H Estim Creat Clear Calc 36.0 L eGFR 19 L BUN/Creatinine Ratio 19 Glucose 126 H Calculated Osmolality 294 Calcium 8.9 Corrected Calcium 9.5 Total Bilirubin 0.3 AST 14 ALT < 7 L Alkaline Phosphatase 146 H Total Protein 5.6 L Albumin 3.2 L Globulin 2.4 Albumin/Globulin Ratio 1.3 ABG Interpretation ABG results: 04/18/25 04/18/25 04/18/25 04:40 06:27 10:30 ABG pH 7.28 L 7.33 L 7.36 ABG pCO2 72 H* 67 H 61 H ABG pO2 132 H 60 L D 60 L ABG HCO3 34 H 35 H 34 H ABG O2 Saturation 100 H 93 93 ABG Base Excess 6 H 7 H 8 H 04/19/25 08:53 ABG pH 7.47 H D ABG pCO2 45 D ABG pO2 66 L ABG HCO3 33 H ABG O2 Saturation 96 ABG Base Excess 8 H Quality Measures Quality Measures VTE therapy Advance care planning discussed with:: patient Assessment & Plan Assessment Current Active Medications: Generic Name Dose Route Start Last Admin Trade Name Freq PRN Reason Stop Dose Admin Acetaminophen 650 mg 05/01/25 08:47 Acetaminophen 325 Mg Tablet PO 05/22/25 20:42 Q6HR PRN pain 1-3 OR Fever >100.4 Hydrocodone Bitart/Acetaminophen 1 tab 04/30/25 02:06 05/02/25 03:27 Hydrocodone/Apap 5/325 Tablet PO 05/05/25 02:05 1 tab Q6HR PRN Administration PAIN SCALE 4-10(Mod-Sev Amiodarone HCl 200 mg 04/13/25 09:00 05/03/25 09:06 Amiodarone Hcl 200 Mg Tablet GT 05/13/25 08:59 200 mg QDAY KOURTNEY Administration Amlodipine Besylate 10 mg 04/13/25 09:00 05/03/25 09:05 Amlodipine Besylate 5 Mg Tablet GT 05/13/25 08:59 10 mg QDAY KOURTNEY Administration Artificial Tears 0 drop 04/14/25 19:33 Artificial Tears 225 Drop/15 Ml Btl BOTH EYES 05/14/25 19:32 PRN PRN TO KEEP EYES MOIST Ascorbic Acid 500 mg 04/17/25 21:00 05/03/25 09:07 Ascorbic Acid 250 Mg Tablet GT 05/17/25 20:59 500 mg BID KOURTNEY Administration Bumetanide 2 mg 04/21/25 09:00 05/03/25 05:57 Bumetanide Inj 0.25 Mg/Ml Vial 4 Ml IVP 05/21/25 08:59 2 mg BIDD KOURTNEY Administration Dextrose 25 ml 04/12/25 23:32 04/24/25 05:27 Dextrose 50%-Water Inj 50 Ml Syringe IV 05/12/25 23:31 25 ml Q15MIN PRN Administration BG 50-70 responsive npo pt Dextrose 50 ml 04/12/25 23:32 Dextrose 50%-Water Inj 50 Ml Syringe IV 05/12/25 23:31 Q15MIN PRN BG <50 OR BG <70 & pt unresponsive Glucagon 1 mg 04/12/25 23:32 Glucagon Inj 1 Mg Vial IM Q15MIN PRN BG <70, and no IV access Heparin Sodium (Porcine) 3,000 unit 04/24/25 13:46 04/29/25 11:04 Heparin Sod Inj 1000 Unit/Ml Vial 10 Ml INDWELLCAT 05/08/25 13:45 3,000 unit PRN PRN Administration DIALYSIS Albumin Human 25 gm in 100 mls @ 100 mls/min 04/24/25 11:52 Albuminar-25 Ivpb IV PRN PRN DIALYSIS Heparin Sodium/Dextrose 25,000 unit in 250 mls @ 22.085 mls/hr 04/29/25 16:30 05/02/25 13:27 Heparin In D5w Ivpb IV 05/13/25 16:29 11.8 units/kg/hr .[id number] KOURTNEY 24.086 mls/hr Administration Protocol 10.82 UNITS/KG/HR Insulin Glargine 38 unit 04/13/25 09:00 05/03/25 08:57 Insulin Glargine (Lantus) 5 Unit/0.05 Ml (Per 5 Units) SC 05/13/25 08:59 38 unit QDAY KOURTNEY Administration Insulin Human Lispro 0 unit 04/13/25 00:00 05/03/25 05:50 Insulin Lispro (Admelog) 1 Unit/0.01 Ml Unit SC 05/13/25 00:00 Not Given Q6HR KOURTNEY Protocol Lansoprazole 30 mg 04/14/25 21:00 05/03/25 09:07 Lansoprazole 30 Mg Tab. GT 05/13/25 08:59 30 mg BID KOURTNEY Administration Metoprolol Tartrate 100 mg 04/17/25 10:15 05/03/25 09:05 Metoprolol Tartrate 25 Mg Tablet GT 05/17/25 10:14 100 mg BID KOURTNEY Administration Ondansetron HCl 4 mg 04/12/25 23:27 04/17/25 05:28 Ondansetron Inj 2 Mg/Ml Inj 2 Ml IVP 05/12/25 23:26 4 mg Q6H PRN Administration NAUSEA OR VOMITING Protocol Pharmacy Consult 1 each 04/24/25 08:43 Pharmacy Renal Dose Adjustment 1 Ea XX 05/24/25 08:42 PRN PRN CONSULT Polyethylene Glycol 34 gm 05/02/25 09:00 05/03/25 09:05 Polyethylene Glycol 17 Gm Packet GT 06/01/25 08:59 34 gm QDAY KOURTNEY Administration Sennosides 2 tab 05/02/25 09:00 05/03/25 09:07 Senna Tablet GT 06/01/25 08:59 2 tab QDAY KOURTNEY Administration Protocol Zinc Sulfate 220 mg 04/18/25 09:00 05/03/25 09:05 Zinc Sulfate 220 Mg Capsule GT 05/18/25 08:59 220 mg QDAY KOURTNEY Administration Plan 64-year-old male with past medical history of DM2, hypertension, A-fib, and Jehova's witness was admitted to the ICU on 02/27/2025 for shock and acute on chronic hypoxic respiratory failure. He is s/p laparoscopic J-tube placement from [facility]. #Acute kidney injury-- seems to be in Ischemic ATN #Hypermagnesemia, resolved Pending CMP Patient will likely need long-term dialysis as patient is currently in ischemic ATN Patient will need to go to LTAC as patient will need dialysis and mechanical ventilation Currently has Vas-Cath UOP: 2110 mL Hepatitis panel unremarkable in February 2025 2.1 L goal fluid removal during dialysis today Pt to be on MWF dialysis schedule Plan: ? Fuller catheter ? Avoid nephrotoxic agents ? Renally dose medicines ? Trend CMP and electrolytes ?Given improving renal function and urine output, will consider holding off on 1 dialysis session. ?05/01/2025 continue holding hemodialysis, urine output adequate. Will keep hemodialysis catheter and reevaluate tomorrow if need for continued hemodialysis. ?05/02/2025 overnight urine output 3 L, creatinine 3.4, will continue monitoring, reevaluate tomorrow if need for hemodialysis, primary team plans to discharge patient to LTAC, will keep dialysis catheter in place, if needed for future hemodialysis as patient had similar presentation with ATN during prior hospitalization requiring transient hemodialysis before being taken off. ?05/03/2025 urine output 2200 mL overnight, creatinine stable at 3.4, will hold off on hemodialysis, from nephrology standpoint patient can be discharged to LTAC, will keep dialysis catheter in place, if needed for future hemodialysis. Watchful observation of renal function and volume status. #Right diastolic CHF #Decubitus ulcer #Chronic back pain #Jejunostomy tube #Acute on Chronic Hypoxic Hypercapnic Respiratory Failure #Obesity hypoventilation syndrome and obstructive sleep apnea #Tracheostomy #Hx of A-fib #Right internal jugular venous thrombosis #Right arm swelling #Morbid obesity #DM2 Above handled by primary hospitalist team Patient seen and care discussed with my attending physician, Dr. Teressa Tobar pgy 2 Attending Provider Attestation/Addendum Patient seen and examined with resident physician Dr. Tobar. Note reviewed, agree with findings and recommendations. Patient alert and awake. S/p debridement. Hold dialysis today. Creatinine stable at 3.4. Patient made more than 2 and half liters of urine. hope there will be renal recovery
--- NOTE | 2025-05-03 09:17 | PD.RESPRO ---
Documentation for date of: 05/03/25 Subjective Subjective Interval history: Patient seen and examined at bedside. Patient yesterday had significant bleeding from sacral wound, general surgery consulted today. Heparin was held this morning, discussed with patient risks and benefits of holding heparin. Patient agrees to hold heparin for now, discussed with general surgery, general surgery agrees with plan. Patient is a Protestant, will defer blood draws for now, will repeat H&H/labs as needed. Plan is to hold heparin for now and monitor for bleed. Nephrology to hold dialysis for now, will continue to monitor urine output. Exam Vital Signs Temp Pulse Resp BP Pulse Ox O2 Del Method O2 Flow Rate 97.1 F 84 22 H 115/72 92 L BiPAP 12 05/03/25 08:00 05/03/25 09:06 05/03/25 08:00 05/03/25 09:06 05/03/25 08:00 05/03/25 04:00 05/03/25 04:00 FiO2 65 05/03/25 07:52 Narrative Exam Physical Exam General: Awake and in no acute distress. Tracheostomy site clean, on mechanical ventilation, nods to questions, responsive. HEENT: Normocephalic, atraumatic, mucous membranes moist. Heart: Irregular rhythm, rate controlled, no murmurs. Possible ejection systolic murmur. Lungs: Bilateral coarse crackles. Abdomen: Soft, obese, nondistended, nontender, positive bowel sounds. ?No guarding or rebound tenderness. Neurologic: Alert and oriented x3, no gross neurological deficit, and patient able to move all 4 extremities. Extremities: trace bilateral lower extremity edema, 1+ edema right upper extremity. Skin: No rash or ecchymoses. Patient has sacral decubitus ulcer. Objective Labs 05/06/25 06:19 05/06/25 06:19 Labs: Laboratory Results - last 24 hr 05/02/25 05/03/25 19:04 05:06 WBC 14.1 H RBC 2.81 L Hgb 8.9 L 7.9 L Hct 27.9 L 24.9 L MCV 89 MCH 28.1 MCHC 31.7 RDW Std Deviation 56.4 H Plt Count 298 Neut % (Auto) 66 Lymph % (Auto) 20 [place] % (Auto) 11 Eos % (Auto) 3 Baso % (Auto) 0 Neut # (Auto) 9.3 H Lymph # (Auto) 2.7 [place] # (Auto) 1.5 H Eos # (Auto) 0.4 Baso # (Auto) 0.0 Immature Gran # (Auto) 0.10 H Absolute Nucleated RBC 0.00 Immature Gran % 1 H Nucleated RBC % 0 APTT 30.5 D Sodium 137 Potassium 4.2 Chloride 97 L Carbon Dioxide 31.5 H Anion Gap 9 BUN 66 H Creatinine 3.4 H Estim Creat Clear Calc 36.0 L eGFR 19 L BUN/Creatinine Ratio 19 Glucose 126 H Calculated Osmolality 294 Calcium 8.9 Corrected Calcium 9.5 Total Bilirubin 0.3 AST 14 ALT < 7 L Alkaline Phosphatase 146 H Total Protein 5.6 L Albumin 3.2 L Globulin 2.4 Albumin/Globulin Ratio 1.3 ABG Interpretation ABG results: 04/18/25 04/18/25 04/18/25 04:40 06:27 10:30 ABG pH 7.28 L 7.33 L 7.36 ABG pCO2 72 H* 67 H 61 H ABG pO2 132 H 60 L D 60 L ABG HCO3 34 H 35 H 34 H ABG O2 Saturation 100 H 93 93 ABG Base Excess 6 H 7 H 8 H 04/19/25 08:53 ABG pH 7.47 H D ABG pCO2 45 D ABG pO2 66 L ABG HCO3 33 H ABG O2 Saturation 96 ABG Base Excess 8 H Quality Measures Quality Measures VTE therapy Advance care planning discussed with:: patient Assessment & Plan Assessment Current Active Medications: Generic Name Dose Route Start Last Admin Trade Name Freq PRN Reason Stop Dose Admin Acetaminophen 650 mg 05/01/25 08:47 Acetaminophen 325 Mg Tablet PO 05/22/25 20:42 Q6HR PRN pain 1-3 OR Fever >100.4 Hydrocodone Bitart/Acetaminophen 1 tab 04/30/25 02:06 05/02/25 03:27 Hydrocodone/Apap 5/325 Tablet PO 05/05/25 02:05 1 tab Q6HR PRN Administration PAIN SCALE 4-10(Mod-Sev Amiodarone HCl 200 mg 04/13/25 09:00 05/03/25 09:06 Amiodarone Hcl 200 Mg Tablet GT 05/13/25 08:59 200 mg QDAY KOURTNEY Administration Amlodipine Besylate 10 mg 04/13/25 09:00 05/03/25 09:05 Amlodipine Besylate 5 Mg Tablet GT 05/13/25 08:59 10 mg QDAY KOURTNEY Administration Artificial Tears 0 drop 04/14/25 19:33 Artificial Tears 225 Drop/15 Ml Btl BOTH EYES 05/14/25 19:32 PRN PRN TO KEEP EYES MOIST Ascorbic Acid 500 mg 04/17/25 21:00 05/03/25 09:07 Ascorbic Acid 250 Mg Tablet GT 05/17/25 20:59 500 mg BID KORUTNEY Administration Bumetanide 2 mg 04/21/25 09:00 05/03/25 05:57 Bumetanide Inj 0.25 Mg/Ml Vial 4 Ml IVP 05/21/25 08:59 2 mg BIDD KOURTNEY Administration Dextrose 25 ml 04/12/25 23:32 04/24/25 05:27 Dextrose 50%-Water Inj 50 Ml Syringe IV 05/12/25 23:31 25 ml Q15MIN PRN Administration BG 50-70 responsive npo pt Dextrose 50 ml 04/12/25 23:32 Dextrose 50%-Water Inj 50 Ml Syringe IV 05/12/25 23:31 Q15MIN PRN BG <50 OR BG <70 & pt unresponsive Glucagon 1 mg 04/12/25 23:32 Glucagon Inj 1 Mg Vial IM Q15MIN PRN BG <70, and no IV access Heparin Sodium (Porcine) 3,000 unit 04/24/25 13:46 04/29/25 11:04 Heparin Sod Inj 1000 Unit/Ml Vial 10 Ml INDWELLCAT 05/08/25 13:45 3,000 unit PRN PRN Administration DIALYSIS Albumin Human 25 gm in 100 mls @ 100 mls/min 04/24/25 11:52 Albuminar-25 Ivpb IV PRN PRN DIALYSIS Heparin Sodium/Dextrose 25,000 unit in 250 mls @ 22.085 mls/hr 04/29/25 16:30 05/02/25 13:27 Heparin In D5w Ivpb IV 05/13/25 16:29 11.8 units/kg/hr .[id number] KOURTNEY 24.086 mls/hr Administration Protocol 10.82 UNITS/KG/HR Insulin Glargine 38 unit 04/13/25 09:00 05/03/25 08:57 Insulin Glargine (Lantus) 5 Unit/0.05 Ml (Per 5 Units) SC 05/13/25 08:59 38 unit QDAY KOURTNEY Administration Insulin Human Lispro 0 unit 04/13/25 00:00 05/03/25 05:50 Insulin Lispro (Admelog) 1 Unit/0.01 Ml Unit SC 05/13/25 00:00 Not Given Q6HR KOURTNEY Protocol Lansoprazole 30 mg 04/14/25 21:00 05/03/25 09:07 Lansoprazole 30 Mg Tab. GT 05/13/25 08:59 30 mg BID KOURTNEY Administration Metoprolol Tartrate 100 mg 04/17/25 10:15 05/03/25 09:05 Metoprolol Tartrate 25 Mg Tablet GT 05/17/25 10:14 100 mg BID KOURTNEY Administration Ondansetron HCl 4 mg 04/12/25 23:27 04/17/25 05:28 Ondansetron Inj 2 Mg/Ml Inj 2 Ml IVP 05/12/25 23:26 4 mg Q6H PRN Administration NAUSEA OR VOMITING Protocol Pharmacy Consult 1 each 04/24/25 08:43 Pharmacy Renal Dose Adjustment 1 Ea XX 05/24/25 08:42 PRN PRN CONSULT Polyethylene Glycol 34 gm 05/02/25 09:00 05/03/25 09:05 Polyethylene Glycol 17 Gm Packet GT 06/01/25 08:59 34 gm QDAY KOURTNEY Administration Sennosides 2 tab 05/02/25 09:00 05/03/25 09:07 Senna Tablet GT 06/01/25 08:59 2 tab QDAY KOURTNEY Administration Protocol Zinc Sulfate 220 mg 04/18/25 09:00 05/03/25 09:05 Zinc Sulfate 220 Mg Capsule GT 05/18/25 08:59 220 mg QDAY KOURTNEY Administration Plan Assessment 64-year-old male with past medical history of DM2, hypertension, A-fib, and Jehova's witness was admitted to the ICU on 02/27/2025 for shock and acute hypoxic respiratory failure. He is s/p laparoscopic J-tube placement from [facility]. #Acute kidney injury-suspicion of ischemic ATN #Fluid overload, improving #Acute on chronic hypoxic respiratory failure, improving #Started on hemodialysis 04/24/2025, status post temporary dialysis catheter placement Patient looks clinically hypervolemic at this time 04/20 ? Attempt was made to place Fuller catheter however unable to pass catheter due to significant resistance and attempt was terminated. Discussed with nursing about possibility of weighing briefs daily. Patient had temporary hemodialysis catheter placed 04/24, receiving dialysis had 1 L removed on 04/24, 2 L on 04/25, 2.14 on 04/26, 2.1 L on 04/29 Plan: -Will continue IV Bumex 2 mg IV daily - Hold heparin GGT -Monitor urine output -Avoid nephrotoxic agents -Renally dose medication #Decubitus ulcer status post excisional debridement of sacral decubitus ulcer, washout and placement of wound VAC, 04/29 #Chronic back pain Not requiring surgical intervention at this time Unstageable sacral ulcer Debridement bedside on 04/17/2025 Wound reassessed by wound care team and general surgeon on 04/24/202504/29: excisional debridement of sacral decubitus ulcer, washout and placement of wound VAC. 05/02: Patient had significant bleeding overnight, wound VAC leaked. Hemoglobin stable this morning, patient's bleeding from wound overnight was controlled with suture ligation. Wound was assessed by general surgeon, patient was transitioned back to red dry dressings daily. Plan: - Continue wound care - General Surgery consulted, appreciate recommendations - Heparin GTT-being held - [place] 5 as needed - Skin barrier creams PRN - Referral to wound care # Normocytic normochromic anemia Multifactorial. Patient's baseline hemoglobin throughout the hospitalization has been in the range 9?11, patient did have some bleeding from wound VAC site on 05/02 which was controlled by suture ligation by general surgery. - Patient is a Protestant, denies any blood transfusion/blood products - Patient will be given erythropoietin x 1 and ferumoxytol IV x 1 to improve underlying anemia. - Follow CBC in a.m. # Right diastolic CHF # Stage III diastolic dysfunction # Fluid overload status, resolving Patient appears clinically dry at this point, will hold on diuresis at this time ECHO 04/29/2025: Normal LV size and function. Estimated EF of 65%. Grade III Diastolic Dysfunction. Right ventricle is dilated with mild RV dysfunction. RVSP 47mmHg. RAP 15mmHg. Severe biatrial dilation. Moderate to Severe AOV calcification with no stenosis Mild tricuspid regurgitation No pericardial effusion. Plan: - Continue strict daily body weight - Continue hemodialysis per nephrology - Daily weights - Strict I&O #Jejunostomy tube #Abdominal abscess Patient report said that there was an intra-abdominal abscess that have could have been from a perforated ulcer in the past See also note reviewed, mentions that patient likely had a marginal ulcer, but also was not seen on EGD without, currently patient has no abdominal tenderness and is totally asymptomatic. No current drain at this time Patient is status post laparoscopic J-tube placement and is currently on feeds Patient will continue to have this tube and will likely go to a long-term care facility with this until patient can swallow safely Plan: ? Completed antibiotic treatment. ? Monitor vitals closely #Aspiration Pneumonia, completed treatment #Obesity hypoventilation syndrome and obstructive sleep apnea #Dysphagia #Tracheostomy Patient was intubated and ventilated due to hypoxic respiratory failure, was unable to be extubated. Tracheostomy was placed. PEG tube was able to be placed, patient transferred to [facility] for laparoscopic J-tube placement, is now being transferred back after procedure successfully completed Plan: - Dietary consulted, recommendations appreciated - Respiratory therapy consulted - Blow-by during the day, mechanical ventilation at night as needed at baseline, currently on mechanical ventilation - Completed antibiotic treatment # Atrial fibrillation, by history [id number] score of 3 points indicating 3.2% risk of stroke per year HAS-BLED: 0 Currently rhythm controlled Plan: - Heparin GTT will hold - Amiodarone 200 mg QDAY - Metoprolol succinate 100 twice daily - Keep potassium and magnesium above 4 and 2 respectively - Telemetry #Right internal jugular venous thrombosis #Right arm swelling Continuing free water flushes, patient has gone multiple days of heparin drip since 04/01 Plan: ? Xarelto 20 mg qday being held - Heparin GTT #Morbid obesity #DM2 A1C 7.6 on 03/05/2025 Patient has a BMI of 79.5->68.7 Plan: - ISS scale 2 - Hypoglycemia protocol ordered - 38 units of Lantus. #Health Maintenance Disposition: Telemetry DVT prophylaxis: Heparin drip being held due to significant bleeding. GI prophylaxis: Protonix Diet: 2Cal Tube Feeds with 30 cc/hour water flush CODE STATUS: Full code Patient plan of care was discussed with the attending physician, Dr. Mendoza. Elizbaeth Lamas PGY1 Attending Provider Attestation/Addendum 64-year-old with morbid obesity with subsequent obesity hypoventilation syndrome requiring tracheostomy and J-tube placement, hypertension, type 2 diabetes, atrial fibrillation, right internal jugular DVT and acute kidney injury secondary to ischemic ATN requiring multiple sessions of hemodialysis and sacral ulcers status post wound VAC currently being treated for acute on chronic hypoxic respiratory failure, ischemic ATN. Overnight, patient noted to have significant bleeding from decubitus ulcer and subsequently general surgery was consulted and heparin drip was discontinued. Talked with the patient regarding discontinuation of heparin drip and given that he has a right internal jugular DVT and atrial fibrillation and updated him that he is at risk for strokes and worsening disease progression however he is in agreement to stop the heparin drip for now. In addition, patient is also a Protestant and refusing blood product and I counseled him regarding need of blood product and risk of not getting it including worsening disease progression which can lead to cardiac arrest and however he understands and continues to refuse for which we will respect his decision. Continue to monitor the patient closely. I reviewed above note and agree with findings and plans. I have also personally examined the patient with medicine team and went over assessment and plan with medical team including geotechnical intern and resident physician.
--- NOTE | 2025-05-03 09:18 | PC.NURSE ---
Dr Gannon made aware of patient labs. No dialysis today per .
[2025-05-04] VITALS (14 sets, daily range): BP systolic 92–113; BP diastolic 64–74; PULSE 58–112; RESP 16–35; TEMP 35.9–36.6; O2SAT 93–99; BMI 68.8
[2025-05-04] MEDS: BUMETANIDE INJ 0.25 MG/ML VIAL 4 ML 2 MG IVP (05:31)
--- NOTE | 2025-05-04 09:30 | PD.RESPRO ---
Documentation for date of: 05/04/25 Subjective Subjective Interval history: Mr. Ortega is a 64-year-old male with a past medical history of type 2 diabetes mellitus, history of ATN, A-fib, hypertension, severe right-sided heart failure, HFpEF, severe BASIA, status post tracheostomy and jejunostomy, patient was previously admitted here for hypoxic respiratory failure requiring mechanical ventilation, was later transferred out to [facility] for jejunostomy tube placement, complicated by abdominal abscess, patient is now transferred back to [facility] for further management. The patient is noted to have pneumonia and acute hypoxic respiratory failure, requiring mechanical ventilation, nephrology was consulted as patient's renal function continues to worsen. Patient had previously required hemodialysis for ATN, but is a poor dialysis candidate outpatient. Patient noted to have significant fluid overload. Team gave 1 dose of Bumex with mild worsening of renal function. 500 cc bolus was given. Renal consultation requested for worsening renal failure in the setting of fluid overload. 04/29/2025: Patient examined at bedside today. No acute overnight events. Pending electrolyte labs. White count 11, hemoglobin 9.5, urine output 2114 milliliters. Patient currently in dialysis currently, goal fluid removal 2.1 L. Currently on mechanical ventilation. Pt to get debridement of sacral wound today. No complaints this time. 04/30/2025 patient is evaluated at the bedside, no acute overnight events, currently on trach collar, noted improvement in swelling, urine output adequate, will consider holding off on session of hemodialysis and continuing monitoring of renal function and urine output. Wound VAC to sacral wound draining serosanguineous fluid. 05/01/2025 patient evaluated bedside, reported no active complaints, improvement in swelling, continue holding hemodialysis, urine output adequate. Will keep hemodialysis catheter and reevaluate tomorrow if need for continued hemodialysis. 05/02/2025 patient evaluated bedside, no active complaints, currently on blow-by, saturating well, overnight urine output 3 L, creatinine 3.4, will continue monitoring, reevaluate tomorrow if need for hemodialysis, primary team plans to discharge patient to LTAC, will keep dialysis catheter in place, if needed for future hemodialysis as patient had similar presentation with ATN during prior hospitalization requiring transient hemodialysis before being taken off. 05/03/2025, patient evaluated bedside, on mechanical ventilation, via trach collar, saturating well, urine output 2200 mL overnight, creatinine stable at 3.4, will hold off on hemodialysis, from nephrology standpoint patient can be discharged to LTAC, will keep dialysis catheter in place, if needed for future hemodialysis. Watchful observation of renal function and volume status. 05/04/2025, patient evaluated bedside, currently mechanical ventilation, patient had urine output 4900 mL overnight is a net negative fluid balance of -4300 mL. Repeat labs in the a.m. to assess for electrolytes and renal function. Continue holding hemodialysis, will reassess tomorrow. Exam Vital Signs Temp Pulse Resp BP Pulse Ox O2 Del Method O2 Flow Rate 97.6 F 80 25 H 98/68 96 Mechanical Ventilation 12 05/04/25 04:00 05/04/25 06:57 05/04/25 04:00 05/04/25 05:31 05/04/25 06:57 05/04/25 04:00 05/04/25 04:00 FiO2 55 05/04/25 06:57 Narrative Exam Physical Exam General: Awake and in no acute distress. Responsive, able to write his responses, follow commands, on blow-by, saturating well. HEENT: Normocephalic, atraumatic, mucous membranes moist. Heart: Irregular rhythm, rate controlled, no murmurs. Possible ejection systolic murmur. Lungs: Bilateral coarse crackles. Abdomen: Soft, obese, nondistended, nontender, positive bowel sounds. ?No guarding or rebound tenderness. Neurologic: Alert and oriented x3, no gross neurological deficit, and patient able to move all 4 extremities. Extremities: 1+ bilateral lower extremity edema, 1+ edema right upper extremity. Skin: No rash or ecchymoses. Patient has sacral decubitus ulcer. Objective Labs 05/03/25 05:06 05/03/25 05:06 ABG Interpretation ABG results: 04/18/25 04/18/25 04/18/25 04:40 06:27 10:30 ABG pH 7.28 L 7.33 L 7.36 ABG pCO2 72 H* 67 H 61 H ABG pO2 132 H 60 L D 60 L ABG HCO3 34 H 35 H 34 H ABG O2 Saturation 100 H 93 93 ABG Base Excess 6 H 7 H 8 H 04/19/25 08:53 ABG pH 7.47 H D ABG pCO2 45 D ABG pO2 66 L ABG HCO3 33 H ABG O2 Saturation 96 ABG Base Excess 8 H Quality Measures Quality Measures VTE therapy Advance care planning discussed with:: patient Assessment & Plan Assessment Current Active Medications: Generic Name Dose Route Start Last Admin Trade Name Freq PRN Reason Stop Dose Admin Acetaminophen 650 mg 05/01/25 08:47 Acetaminophen 325 Mg Tablet PO 05/22/25 20:42 Q6HR PRN pain 1-3 OR Fever >100.4 Hydrocodone Bitart/Acetaminophen 1 tab 04/30/25 02:06 05/02/25 03:27 Hydrocodone/Apap 5/325 Tablet PO 05/05/25 02:05 1 tab Q6HR PRN Administration PAIN SCALE 4-10(Mod-Sev Amiodarone HCl 200 mg 04/13/25 09:00 05/03/25 09:06 Amiodarone Hcl 200 Mg Tablet GT 05/13/25 08:59 200 mg QDAY KOURTNEY Administration Amlodipine Besylate 10 mg 04/13/25 09:00 05/03/25 09:05 Amlodipine Besylate 5 Mg Tablet GT 05/13/25 08:59 10 mg QDAY KOURTNEY Administration Artificial Tears 0 drop 04/14/25 19:33 Artificial Tears 225 Drop/15 Ml Btl BOTH EYES 05/14/25 19:32 PRN PRN TO KEEP EYES MOIST Ascorbic Acid 500 mg 04/17/25 21:00 05/03/25 21:44 Ascorbic Acid 250 Mg Tablet GT 05/17/25 20:59 500 mg BID KOURTNEY Administration Bumetanide 2 mg 04/21/25 09:00 05/04/25 05:31 Bumetanide Inj 0.25 Mg/Ml Vial 4 Ml IVP 05/21/25 08:59 2 mg BIDD KOURTNEY Administration Dextrose 25 ml 04/12/25 23:32 04/24/25 05:27 Dextrose 50%-Water Inj 50 Ml Syringe IV 05/12/25 23:31 25 ml Q15MIN PRN Administration BG 50-70 responsive npo pt Dextrose 50 ml 04/12/25 23:32 Dextrose 50%-Water Inj 50 Ml Syringe IV 05/12/25 23:31 Q15MIN PRN BG <50 OR BG <70 & pt unresponsive Glucagon 1 mg 04/12/25 23:32 Glucagon Inj 1 Mg Vial IM Q15MIN PRN BG <70, and no IV access Heparin Sodium (Porcine) 3,000 unit 04/24/25 13:46 04/29/25 11:04 Heparin Sod Inj 1000 Unit/Ml Vial 10 Ml INDWELLCAT 05/08/25 13:45 3,000 unit PRN PRN Administration DIALYSIS Albumin Human 25 gm in 100 mls @ 100 mls/min 04/24/25 11:52 Albuminar-25 Ivpb IV PRN PRN DIALYSIS Heparin Sodium/Dextrose 25,000 unit in 250 mls @ 22.085 mls/hr 04/29/25 16:30 05/02/25 13:27 Heparin In D5w Ivpb IV 05/13/25 16:29 11.8 units/kg/hr .[id number] KOURTNEY 24.086 mls/hr Administration Protocol 10.82 UNITS/KG/HR Insulin Glargine 38 unit 04/13/25 09:00 05/03/25 08:57 Insulin Glargine (Lantus) 5 Unit/0.05 Ml (Per 5 Units) SC 05/13/25 08:59 38 unit QDAY KOURTNEY Administration Insulin Human Lispro 0 unit 04/13/25 00:00 05/04/25 05:06 Insulin Lispro (Admelog) 1 Unit/0.01 Ml Unit SC 05/13/25 00:00 Not Given Q6HR [facility] Protocol Lansoprazole 30 mg 04/14/25 21:00 05/03/25 21:45 Lansoprazole 30 Mg Tab.Rap. GT 05/13/25 08:59 30 mg BID KOURTNEY Administration Metoprolol Tartrate 100 mg 04/17/25 10:15 05/03/25 21:44 Metoprolol Tartrate 25 Mg Tablet GT 05/17/25 10:14 100 mg BID KOURTNEY Administration Ondansetron HCl 4 mg 04/12/25 23:27 04/17/25 05:28 Ondansetron Inj 2 Mg/Ml Inj 2 Ml IVP 05/12/25 23:26 4 mg Q6H PRN Administration NAUSEA OR VOMITING Protocol Pharmacy Consult 1 each 04/24/25 08:43 Pharmacy Renal Dose Adjustment 1 Ea XX 05/24/25 08:42 PRN PRN CONSULT Polyethylene Glycol 34 gm 05/02/25 09:00 05/03/25 09:05 Polyethylene Glycol 17 Gm Packet GT 06/01/25 08:59 34 gm QDAY KOURTNEY Administration Sennosides 2 tab 05/02/25 09:00 05/03/25 09:07 Senna Tablet GT 06/01/25 08:59 2 tab QDAY KOURTNEY Administration Protocol Zinc Sulfate 220 mg 04/18/25 09:00 05/03/25 09:05 Zinc Sulfate 220 Mg Capsule GT 05/18/25 08:59 220 mg QDAY KOURTNEY Administration Plan 64-year-old male with past medical history of DM2, hypertension, A-fib, and Jehova's witness was admitted to the ICU on 02/27/2025 for shock and acute on chronic hypoxic respiratory failure. He is s/p laparoscopic J-tube placement from [facility]. #Acute kidney injury-- seems to be in Ischemic ATN #Hypermagnesemia, resolved Pending CMP Patient will likely need long-term dialysis as patient is currently in ischemic ATN Patient will need to go to LTAC as patient will need dialysis and mechanical ventilation Currently has Vas-Cath Plan: ? Fuller catheter ? Avoid nephrotoxic agents ? Renally dose medicines ? Trend CMP and electrolytes ?Given improving renal function and urine output, will consider holding off on dialysis sessions. ? Urine output 4.9 L overnight. Will hold off on hemodialysis, from nephrology standpoint patient can be discharged to LTAC, will keep dialysis catheter in place, if needed for future hemodialysis. Watchful observation of renal function and volume status. #Right diastolic CHF #Decubitus ulcer #Chronic back pain #Jejunostomy tube #Acute on Chronic Hypoxic Hypercapnic Respiratory Failure #Obesity hypoventilation syndrome and obstructive sleep apnea #Tracheostomy #Hx of A-fib #Right internal jugular venous thrombosis #Right arm swelling #Morbid obesity #DM2 Above handled by primary hospitalist team Patient seen and care discussed with my attending physician, Dr. Teressa Tobar pgy 2 Attending Provider Attestation/Addendum Patient seen and examined with resident physician Dr. Tobar. Note reviewed, agree with findings and recommendations. Patient alert and awake. S/p debridement. Hold dialysis today. No new labs. Patient made more than 5l of urine. Diuretics were held by primary team. Edema markedly improved. Hope there will be renal recovery
[2025-05-04] MEDS: LANSOPRAZOLE 30 MG TAB.RAP.DR GT ×2 (09:38→20:25)
[2025-05-04] MEDS: ZINC SULFATE 220 MG CAPSULE GT (09:38)
[2025-05-04] MEDS: AMIODARONE HCL 200 MG TABLET GT (09:38)
[2025-05-04] MEDS: ASCORBIC ACID 250 MG TABLET 500 MG GT ×2 (09:39→20:24)
[2025-05-04] MEDS: INSULIN GLARGINE (Lantus) 5 UNIT/0.05 ML (PER 5 UNITS) 38 UNIT SC (09:40)
[2025-05-04] MEDS: POLYETHYLENE GLYCOL 17 GM PACKET 34 GM GT (09:40)
--- NOTE | 2025-05-04 10:15 | XR_ITS ---
Examination: Duplex scan of the upper extremity, unilateral right Date and time of exam: May 04, 2025 1123 hrs. Indications: Redness swelling and pain involving the arm this week, history DVT right internal jugular vein April 01, 2025 Technique: Duplex scan of the extremity veins using B-mode/grayscale imaging and Doppler spectral analysis and color flow Attention is directed to internal echogenicity, compression and augmentation involving these veins, color flow assessment, spectral analysis Findings: Again noted thrombus in the jugular vein Remaining deep venous system is open Impression: Again noted positive DVT in the right internal jugular vein
--- NOTE | 2025-05-04 12:15 | ESPR_ITS ---
Documentation for date of: 05/04/25 Subjective Subjective Interval history: Patient seen and examined at bedside. No overnight events, no bleeding noted. Will continue to hold heparin drip. This morning patient's blood pressure is soft, will hold antihypertensive medication. Discussed with nephrology, patient has significant urine output, will hold Bumex. Will continue to hold dialysis for now. Will not obtain labs for now, patient is a Baptism, last hemoglobin was 7.9-05/03 Will repeat right upper extremity ultrasound to assess for thrombus. Will continue to monitor for bleeding. If patient has no bleeding overnight, will repeat labs on 05/06 Exam Vital Signs Temp Pulse Resp BP Pulse Ox O2 Del Method O2 Flow Rate 97.1 F 79 16 97/70 97 Mechanical Ventilation 12 05/04/25 08:00 05/04/25 09:40 05/04/25 08:00 05/04/25 09:40 05/04/25 08:00 05/04/25 08:00 05/04/25 08:00 FiO2 55 05/04/25 08:00 Narrative Exam Physical Exam General: Awake and in no acute distress. Tracheostomy site clean, on mechanical ventilation, nods to questions, responsive. HEENT: Normocephalic, atraumatic, mucous membranes moist. Heart: Irregular rhythm, rate controlled, no murmurs. Possible ejection systolic murmur. Lungs: Bilateral coarse crackles. Abdomen: Soft, obese, nondistended, nontender, positive bowel sounds. ?No guarding or rebound tenderness. Neurologic: Alert and oriented x3, no gross neurological deficit, and patient able to move all 4 extremities. Extremities: trace bilateral lower extremity edema, trace edema right upper extremity. Skin: No rash or ecchymoses. Patient has sacral decubitus ulcer. Objective Labs 05/06/25 06:19 05/06/25 06:19 ABG Interpretation ABG results: 04/18/25 04/18/25 04/18/25 04:40 06:27 10:30 ABG pH 7.28 L 7.33 L 7.36 ABG pCO2 72 H* 67 H 61 H ABG pO2 132 H 60 L D 60 L ABG HCO3 34 H 35 H 34 H ABG O2 Saturation 100 H 93 93 ABG Base Excess 6 H 7 H 8 H 04/19/25 08:53 ABG pH 7.47 H D ABG pCO2 45 D ABG pO2 66 L ABG HCO3 33 H ABG O2 Saturation 96 ABG Base Excess 8 H Quality Measures Quality Measures VTE therapy Advance care planning discussed with:: patient Assessment & Plan Assessment Current Active Medications: Generic Name Dose Route Start Last Admin Trade Name Freq PRN Reason Stop Dose Admin Acetaminophen 650 mg 05/01/25 08:47 Acetaminophen 325 Mg Tablet PO 05/22/25 20:42 Q6HR PRN pain 1-3 OR Fever >100.4 Hydrocodone Bitart/Acetaminophen 1 tab 04/30/25 02:06 05/02/25 03:27 Hydrocodone/Apap 5/325 Tablet PO 05/05/25 02:05 1 tab Q6HR PRN Administration PAIN SCALE 4-10(Mod-Sev Amiodarone HCl 200 mg 04/13/25 09:00 05/04/25 09:38 Amiodarone Hcl 200 Mg Tablet GT 05/13/25 08:59 200 mg QDAY KOURTNEY Administration Amlodipine Besylate 10 mg 04/13/25 09:00 05/04/25 09:39 Amlodipine Besylate 5 Mg Tablet GT 05/13/25 08:59 Not Given QDAY KOURTNEY Artificial Tears 0 drop 04/14/25 19:33 Artificial Tears 225 Drop/15 Ml Btl BOTH EYES 05/14/25 19:32 PRN PRN TO KEEP EYES MOIST Ascorbic Acid 500 mg 04/17/25 21:00 05/04/25 09:39 Ascorbic Acid 250 Mg Tablet GT 05/17/25 20:59 500 mg BID KOURTNEY Administration Bumetanide 2 mg 04/21/25 09:00 05/04/25 05:31 Bumetanide Inj 0.25 Mg/Ml Vial 4 Ml IVP 05/21/25 08:59 2 mg BIDD KOURTNEY Administration Dextrose 25 ml 04/12/25 23:32 04/24/25 05:27 Dextrose 50%-Water Inj 50 Ml Syringe IV 05/12/25 23:31 25 ml Q15MIN PRN Administration BG 50-70 responsive npo pt Dextrose 50 ml 04/12/25 23:32 Dextrose 50%-Water Inj 50 Ml Syringe IV 05/12/25 23:31 Q15MIN PRN BG <50 OR BG <70 & pt unresponsive Glucagon 1 mg 04/12/25 23:32 Glucagon Inj 1 Mg Vial IM Q15MIN PRN BG <70, and no IV access Heparin Sodium (Porcine) 3,000 unit 04/24/25 13:46 04/29/25 11:04 Heparin Sod Inj 1000 Unit/Ml Vial 10 Ml INDWELLCAT 05/08/25 13:45 3,000 unit PRN PRN Administration DIALYSIS Albumin Human 25 gm in 100 mls @ 100 mls/min 04/24/25 11:52 Albuminar-25 Ivpb IV PRN PRN DIALYSIS Heparin Sodium/Dextrose 25,000 unit in 250 mls @ 22.085 mls/hr 04/29/25 16:30 05/02/25 13:27 Heparin In D5w Ivpb IV 05/13/25 16:29 11.8 units/kg/hr .[id number] KOURTNEY 24.086 mls/hr Administration Protocol 10.82 UNITS/KG/HR Insulin Glargine 38 unit 04/13/25 09:00 05/04/25 09:40 Insulin Glargine (Lantus) 5 Unit/0.05 Ml (Per 5 Units) SC 05/13/25 08:59 38 unit QDAY KOURTNEY Administration Insulin Human Lispro 0 unit 04/13/25 00:00 05/04/25 05:06 Insulin Lispro (Admelog) 1 Unit/0.01 Ml Unit SC 05/13/25 00:00 Not Given Q6HR [facility] Protocol Lansoprazole 30 mg 04/14/25 21:00 05/04/25 09:38 Lansoprazole 30 Mg Tab.Rap. GT 05/13/25 08:59 30 mg BID KOURTNEY Administration Ondansetron HCl 4 mg 04/12/25 23:27 04/17/25 05:28 Ondansetron Inj 2 Mg/Ml Inj 2 Ml IVP 05/12/25 23:26 4 mg Q6H PRN Administration NAUSEA OR VOMITING Protocol Pharmacy Consult 1 each 04/24/25 08:43 Pharmacy Renal Dose Adjustment 1 Ea XX 05/24/25 08:42 PRN PRN CONSULT Polyethylene Glycol 34 gm 05/02/25 09:00 05/04/25 09:40 Polyethylene Glycol 17 Gm Packet GT 06/01/25 08:59 34 gm QDAY KOURTNEY Administration Sennosides 2 tab 05/02/25 09:00 05/04/25 09:38 Senna Tablet GT 06/01/25 08:59 2 tab QDAY KOURTNEY Administration Protocol Zinc Sulfate 220 mg 04/18/25 09:00 05/04/25 09:38 Zinc Sulfate 220 Mg Capsule GT 05/18/25 08:59 220 mg QDAY KOURTNEY Administration Plan Assessment 64-year-old male with past medical history of DM2, hypertension, A-fib, and Jehova's witness was admitted to the ICU on 02/27/2025 for shock and acute hypoxic respiratory failure. He is s/p laparoscopic J-tube placement from [facility]. #Acute kidney injury-suspicion of ischemic ATN #Fluid overload, improving #Acute on chronic hypoxic respiratory failure, improving #Started on hemodialysis 04/24/2025, status post temporary dialysis catheter placement Patient looks clinically hypervolemic at this time 04/20 ? Attempt was made to place Fuller catheter however unable to pass catheter due to significant resistance and attempt was terminated. Discussed with nursing about possibility of weighing briefs daily. Patient had temporary hemodialysis catheter placed 04/24, receiving dialysis had 1 L removed on 04/24, 2 L on 04/25, 2.14 on 04/26, 2.1 L on 04/29 Plan: - Will hold Bumex. - Continued to hold heparin GGT -Monitor urine output -Avoid nephrotoxic agents -Renally dose medication #Decubitus ulcer status post excisional debridement of sacral decubitus ulcer, washout and placement of wound VAC, 04/29 #Chronic back pain Not requiring surgical intervention at this time Unstageable sacral ulcer Debridement bedside on 04/17/2025 Wound reassessed by wound care team and general surgeon on 04/24/202504/29: excisional debridement of sacral decubitus ulcer, washout and placement of wound VAC. 05/02: Patient had significant bleeding overnight, wound VAC leaked. Hemoglobin stable this morning, patient's bleeding from wound overnight was controlled with suture ligation. Wound was assessed by general surgeon, patient was transitioned back to red dry dressings daily. Plan: - Continue wound care - General Surgery consulted, appreciate recommendations - Continue to hold heparin - [place] 5 as needed - Skin barrier creams PRN - Referral to wound care # Normocytic normochromic anemia Multifactorial. Patient's baseline hemoglobin throughout the hospitalization has been in the range 9?11, patient did have some bleeding from wound VAC site on 05/02 which was controlled by suture ligation by general surgery. Had recurrent bleeding and eventually heparin drip was held. - Patient is a Baptism, denies any blood transfusion/blood products - Patient will be given erythropoietin x 1 and ferumoxytol IV x 1 to improve underlying anemia. - Will repeat CBC as needed # Right diastolic CHF # Stage III diastolic dysfunction # Fluid overload status, resolving Patient appears clinically dry at this point, will hold on diuresis at this time ECHO 04/29/2025: Normal LV size and function. Estimated EF of 65%. Grade III Diastolic Dysfunction. Right ventricle is dilated with mild RV dysfunction. RVSP 47mmHg. RAP 15mmHg. Severe biatrial dilation. Moderate to Severe AOV calcification with no stenosis Mild tricuspid regurgitation No pericardial effusion. Plan: - Continue strict daily body weight - Continue hemodialysis per nephrology - Daily weights - Strict I&O #Jejunostomy tube #Abdominal abscess Patient report said that there was an intra-abdominal abscess that have could have been from a perforated ulcer in the past See also note reviewed, mentions that patient likely had a marginal ulcer, but also was not seen on EGD without, currently patient has no abdominal tenderness and is totally asymptomatic. No current drain at this time Patient is status post laparoscopic J-tube placement and is currently on feeds Patient will continue to have this tube and will likely go to a long-term care facility with this until patient can swallow safely Plan: ? Completed antibiotic treatment. ? Monitor vitals closely #Aspiration Pneumonia, completed treatment #Obesity hypoventilation syndrome and obstructive sleep apnea #Dysphagia #Tracheostomy Patient was intubated and ventilated due to hypoxic respiratory failure, was unable to be extubated. Tracheostomy was placed. PEG tube was able to be placed, patient transferred to [facility] for laparoscopic J-tube placement, is now being transferred back after procedure successfully completed Plan: - Dietary consulted, recommendations appreciated - Respiratory therapy consulted - Blow-by during the day, mechanical ventilation at night as needed at baseline, currently on mechanical ventilation - Completed antibiotic treatment # Atrial fibrillation, by history [id number] score of 3 points indicating 3.2% risk of stroke per year HAS-BLED: 0 Currently rhythm controlled Plan: - Amiodarone 200 mg QDAY - Will hold metoprolol, blood pressure soft - Will hold heparin drip, risks and benefits discussed with patient - Keep potassium and magnesium above 4 and 2 respectively - Telemetry - Hold amlodipine #Right internal jugular venous thrombosis #Right arm swelling Continuing free water flushes, patient has gone multiple days of heparin drip since 04/01 Plan: ? Heparin drip is being held due to recurrent bleeding from sacral ulcer ? Will repeat right upper extremity ultrasound #Morbid obesity #DM2 A1C 7.6 on 03/05/2025 Patient has a BMI of 79.5->68.7 Plan: - ISS scale 2 - Hypoglycemia protocol ordered - 38 units of Lantus. #Health Maintenance Disposition: Telemetry DVT prophylaxis: Heparin drip being held due to significant bleeding. GI prophylaxis: Protonix Diet: 2Cal Tube Feeds with 30 cc/hour water flush CODE STATUS: Full code Patient plan of care was discussed with the attending physician, Dr. Mendoza. Elizabeth Lamas PGY1 Attending Provider Attestation/Addendum 64-year-old with morbid obesity with subsequent obesity hypoventilation syndrome requiring tracheostomy and J-tube placement, hypertension, type 2 diabetes, atrial fibrillation, right internal jugular DVT and acute kidney injury secondary to ischemic ATN requiring multiple sessions of hemodialysis and sacral ulcers status post wound VAC currently being treated for acute on chronic hypoxic respiratory failure, ischemic ATN. Overnight, patient noted to have significant bleeding from decubitus ulcer and subsequently general surgery was consulted and heparin drip was discontinued. Talked with the patient regarding discontinuation of heparin drip and given that he has a right internal jugular DVT and atrial fibrillation and updated him that he is at risk for strokes and worsening disease progression however he is in agreement to stop the heparin drip for now. In addition, patient is also a Baptism and refusing blood product and I counseled him regarding need of blood product and risk of not getting it including worsening disease progression which can lead to cardiac arrest and however he understands and continues to refuse for which we will respect his decision. Continue to monitor the patient closely. I reviewed above note and agree with findings and plans. I have also personally examined the patient with medicine team and went over assessment and plan with medical team including international operations manager and resident physician.
[2025-05-05] VITALS (12 sets, daily range): BP systolic 101–117; BP diastolic 64–84; PULSE 80–98; RESP 15–30; TEMP 36.2–37.1; O2SAT 95–99; BMI 68.1
--- NOTE | 2025-05-05 07:28 | ESPR_ITS ---
Documentation for date of: 05/05/25 Subjective Subjective Interval history: Mr. Ortega is a 64-year-old male with a past medical history of type 2 diabetes mellitus, history of ATN, A-fib, hypertension, severe right-sided heart failure, HFpEF, severe BASIA, status post tracheostomy and jejunostomy, patient was previously admitted here for hypoxic respiratory failure requiring mechanical ventilation, was later transferred out to [facility] for jejunostomy tube placement, complicated by abdominal abscess, patient is now transferred back to [facility] for further management. The patient is noted to have pneumonia and acute hypoxic respiratory failure, requiring mechanical ventilation, nephrology was consulted as patient's renal function continues to worsen. Patient had previously required hemodialysis for ATN, but is a poor dialysis candidate outpatient. Patient noted to have significant fluid overload. Team gave 1 dose of Bumex with mild worsening of renal function. 500 cc bolus was given. Renal consultation requested for worsening renal failure in the setting of fluid overload. 05/05/2025 patient resting comfortably in telemetry. Will wait for labs for tomorrow. If creatinine less than 3.4 will DC dialysis catheter. Discharge planning per primary team. Review of Systems Review of Systems Narrative Review of Systems: . Patient denies any chest pain, shortness of breath. Exam Vital Signs Temp Pulse Resp BP Pulse Ox O2 Del Method O2 Flow Rate 37.0 C 88 25 H 105/65 96 Mechanical Ventilation 12 05/05/25 04:00 05/05/25 06:12 05/05/25 04:00 05/05/25 04:00 05/05/25 06:12 05/05/25 04:00 05/04/25 16:00 FiO2 55 05/05/25 06:12 Narrative Exam Physical Exam General: Awake and in no acute distress. Responsive, able to write his responses, follow commands, trach collar, saturating well. HEENT: Normocephalic, atraumatic, mucous membranes moist. Heart: Irregular rhythm, rate controlled, no murmurs. Possible ejection systolic murmur. Lungs: Bilateral coarse crackles. Abdomen: Soft, obese, nondistended, nontender, positive bowel sounds. ?No guarding or rebound tenderness. Neurologic: Alert and oriented x3, no gross neurological deficit, and patient able to move all 4 extremities. Extremities: 1+ bilateral lower extremity edema, 1+ edema right upper extremity. Skin: No rash or ecchymoses. Patient has sacral decubitus ulcer. Objective Labs 05/06/25 06:19 05/06/25 06:19 ABG Interpretation ABG results: 04/18/25 04/18/25 04/18/25 04:40 06:27 10:30 ABG pH 7.28 L 7.33 L 7.36 ABG pCO2 72 H* 67 H 61 H ABG pO2 132 H 60 L D 60 L ABG HCO3 34 H 35 H 34 H ABG O2 Saturation 100 H 93 93 ABG Base Excess 6 H 7 H 8 H 04/19/25 08:53 ABG pH 7.47 H D ABG pCO2 45 D ABG pO2 66 L ABG HCO3 33 H ABG O2 Saturation 96 ABG Base Excess 8 H Assessment & Plan Assessment and plan (1) KENIA (acute kidney injury): Status: Acute (2) CHF (congestive heart failure): Status: Acute (3) Atrial fibrillation: Status: Acute (4) Respiratory failure: Status: Acute (5) Pneumonia: Status: Acute Additional Assessment & Plan Additional Plan: Patient now with ischemic ATN with good UOP. await renal recovery (2) CHF (congestive heart failure) Qualifiers: Heart failure chronicity: chronic Heart failure type: right-sided Qualified Code(s): I50.812 - Chronic right heart failure (3) Atrial fibrillation Qualifiers: Atrial fibrillation type: unspecified Qualified Code(s): I48.91 - Unspecified atrial fibrillation
[2025-05-05] MEDS: POLYETHYLENE GLYCOL 17 GM PACKET 34 GM GT (08:59)
[2025-05-05] MEDS: ASCORBIC ACID 250 MG TABLET 500 MG GT ×2 (09:01→21:54)
[2025-05-05] MEDS: LANSOPRAZOLE 30 MG TAB.RAP.DR GT (09:01)
[2025-05-05] MEDS: ZINC SULFATE 220 MG CAPSULE GT (09:01)
[2025-05-05] MEDS: AMIODARONE HCL 200 MG TABLET GT (09:01)
[2025-05-05] MEDS: INSULIN GLARGINE (Lantus) 5 UNIT/0.05 ML (PER 5 UNITS) 38 UNIT SC (09:02)
--- NOTE | 2025-05-05 10:48 | ESPR_ITS ---
Documentation for date of: 05/05/25 Subjective Subjective Interval history: Patient seen and examined at bedside. Patient has had no significant bleeding over the last 24-48 hours. Will continue to hold heparin. Repeat right upper extremity study still shows right IJ thrombus. Patient received x 1 Bumex yesterday, had about 2 L urine output, fluid overload status has improved significantly. Will hold Bumex. Blood pressure has been within normal limits, will continue to hold antihypertensives. Will continue with amiodarone for A-fib. Nephrology to obtain CBC CMP today. Will minimize lab draws, will consider lab draws every other day. Will continue to monitor patient. Exam Vital Signs Temp Pulse Resp BP Pulse Ox O2 Del Method O2 Flow Rate 98.2 F 90 18 111/75 96 Mechanical Ventilation 12 05/05/25 08:00 05/05/25 09:01 05/05/25 08:00 05/05/25 09:01 05/05/25 08:00 05/05/25 08:00 05/05/25 08:00 FiO2 55 05/05/25 08:00 Narrative Exam Physical Exam General: Awake and in no acute distress. Tracheostomy site clean, on mechanical ventilation, nods to questions, responsive. HEENT: Normocephalic, atraumatic, mucous membranes moist. Heart: Irregular rhythm, rate controlled, no murmurs. Possible ejection systolic murmur. Lungs: Bilateral coarse crackles. Abdomen: Soft, obese, nondistended, nontender, positive bowel sounds. ?No guarding or rebound tenderness. Neurologic: Alert and oriented x3, no gross neurological deficit, and patient able to move all 4 extremities. Extremities: trace bilateral lower extremity edema, trace edema right upper extremity. Skin: No rash or ecchymoses. Patient has sacral decubitus ulcer. Objective Labs 05/06/25 06:19 05/06/25 06:19 ABG Interpretation ABG results: 04/18/25 04/18/25 04/18/25 04:40 06:27 10:30 ABG pH 7.28 L 7.33 L 7.36 ABG pCO2 72 H* 67 H 61 H ABG pO2 132 H 60 L D 60 L ABG HCO3 34 H 35 H 34 H ABG O2 Saturation 100 H 93 93 ABG Base Excess 6 H 7 H 8 H 04/19/25 08:53 ABG pH 7.47 H D ABG pCO2 45 D ABG pO2 66 L ABG HCO3 33 H ABG O2 Saturation 96 ABG Base Excess 8 H Quality Measures Quality Measures VTE therapy Advance care planning discussed with:: patient Assessment & Plan Assessment Current Active Medications: Generic Name Dose Route Start Last Admin Trade Name Freq PRN Reason Stop Dose Admin Acetaminophen 650 mg 05/01/25 08:47 Acetaminophen 325 Mg Tablet PO 05/22/25 20:42 Q6HR PRN pain 1-3 OR Fever >100.4 Amiodarone HCl 200 mg 04/13/25 09:00 05/05/25 09:01 Amiodarone Hcl 200 Mg Tablet GT 05/13/25 08:59 200 mg QDAY KOURTNEY Administration Amlodipine Besylate 10 mg 04/13/25 09:00 05/04/25 09:39 Amlodipine Besylate 5 Mg Tablet GT 05/13/25 08:59 Not Given QDAY KOURTNEY Artificial Tears 0 drop 04/14/25 19:33 Artificial Tears 225 Drop/15 Ml Btl BOTH EYES 05/14/25 19:32 PRN PRN TO KEEP EYES MOIST Ascorbic Acid 500 mg 04/17/25 21:00 05/05/25 09:01 Ascorbic Acid 250 Mg Tablet GT 05/17/25 20:59 500 mg BID KOURTNEY Administration Bumetanide 2 mg 04/21/25 09:00 05/04/25 05:31 Bumetanide Inj 0.25 Mg/Ml Vial 4 Ml IVP 05/21/25 08:59 2 mg BIDD KOURTNEY Administration Dextrose 25 ml 04/12/25 23:32 04/24/25 05:27 Dextrose 50%-Water Inj 50 Ml Syringe IV 05/12/25 23:31 25 ml Q15MIN PRN Administration BG 50-70 responsive npo pt Dextrose 50 ml 04/12/25 23:32 Dextrose 50%-Water Inj 50 Ml Syringe IV 05/12/25 23:31 Q15MIN PRN BG <50 OR BG <70 & pt unresponsive Glucagon 1 mg 04/12/25 23:32 Glucagon Inj 1 Mg Vial IM Q15MIN PRN BG <70, and no IV access Heparin Sodium (Porcine) 3,000 unit 04/24/25 13:46 04/29/25 11:04 Heparin Sod Inj 1000 Unit/Ml Vial 10 Ml INDWELLCAT 05/08/25 13:45 3,000 unit PRN PRN Administration DIALYSIS Albumin Human 25 gm in 100 mls @ 100 mls/min 04/24/25 11:52 Albuminar-25 Ivpb IV PRN PRN DIALYSIS Heparin Sodium/Dextrose 25,000 unit in 250 mls @ 22.085 mls/hr 04/29/25 16:30 05/02/25 13:27 Heparin In D5w Ivpb IV 05/13/25 16:29 11.8 units/kg/hr .[id number] KOURTNEY 24.086 mls/hr Administration Protocol 10.82 UNITS/KG/HR Insulin Glargine 38 unit 04/13/25 09:00 05/05/25 09:02 Insulin Glargine (Lantus) 5 Unit/0.05 Ml (Per 5 Units) SC 05/13/25 08:59 38 unit QDAY KOURTNEY Administration Insulin Human Lispro 0 unit 04/13/25 00:00 05/05/25 05:46 Insulin Lispro (Admelog) 1 Unit/0.01 Ml Unit SC 05/13/25 00:00 Not Given Q6HR KOURTNEY Protocol Lansoprazole 30 mg 05/05/25 09:00 05/05/25 09:01 Lansoprazole 30 Mg Tab GT 06/04/25 08:59 30 mg QDAY KOURTNEY Administration Ondansetron HCl 4 mg 04/12/25 23:27 04/17/25 05:28 Ondansetron Inj 2 Mg/Ml Inj 2 Ml IVP 05/12/25 23:26 4 mg Q6H PRN Administration NAUSEA OR VOMITING Protocol Pharmacy Consult 1 each 04/24/25 08:43 Pharmacy Renal Dose Adjustment 1 Ea XX 05/24/25 08:42 PRN PRN CONSULT Polyethylene Glycol 34 gm 05/02/25 09:00 05/05/25 08:59 Polyethylene Glycol 17 Gm Packet GT 06/01/25 08:59 34 gm QDAY KOURTNEY Administration Sennosides 2 tab 05/02/25 09:00 05/05/25 09:01 Senna Tablet GT 06/01/25 08:59 2 tab QDAY [facility] Administration Protocol Zinc Sulfate 220 mg 04/18/25 09:00 05/05/25 09:01 Zinc Sulfate 220 Mg Capsule GT 05/18/25 08:59 220 mg QDAY KOURTNEY Administration Plan Assessment 64-year-old male with past medical history of DM2, hypertension, A-fib, and Jehova's witness was admitted to the ICU on 02/27/2025 for shock and acute hypoxic respiratory failure. He is s/p laparoscopic J-tube placement from [facility]. #Acute kidney injury-suspicion of ischemic ATN #Fluid overload, improving #Acute on chronic hypoxic respiratory failure, improving #Started on hemodialysis 04/24/2025, status post temporary dialysis catheter placement Patient looks clinically hypervolemic at this time 04/20 ? Attempt was made to place Fuller catheter however unable to pass catheter due to significant resistance and attempt was terminated. Discussed with nursing about possibility of weighing briefs daily. Patient had temporary hemodialysis catheter placed 04/24, receiving dialysis had 1 L removed on 04/24, 2 L on 04/25, 2.14 on 04/26, 2.1 L on 04/29 Plan: -Will hold Bumex. -Continue to hold heparin GGT -Monitor urine output -Avoid nephrotoxic agents -Renally dose medication #Decubitus ulcer status post excisional debridement of sacral decubitus ulcer, washout and placement of wound VAC, 04/29 #Chronic back pain Not requiring surgical intervention at this time Unstageable sacral ulcer Debridement bedside on 04/17/2025 Wound reassessed by wound care team and general surgeon on 04/24/202504/29: excisional debridement of sacral decubitus ulcer, washout and placement of wound VAC. 05/02: Patient had significant bleeding overnight, wound VAC leaked. Hemoglobin stable this morning, patient's bleeding from wound overnight was controlled with suture ligation. Wound was assessed by general surgeon, patient was transitioned back to red dry dressings daily. Plan: - Continue wound care - General Surgery consulted, appreciate recommendations - Continue to hold heparin - [place] 5 as needed - Skin barrier creams PRN - Referral to wound care # Normocytic normochromic anemia Multifactorial. Patient's baseline hemoglobin throughout the hospitalization has been in the range 9?11, patient did have some bleeding from wound VAC site on 05/02 which was controlled by suture ligation by general surgery. Had recurrent bleeding and eventually heparin drip was held. - Patient is a Zoroastrianism, denies any blood transfusion/blood products - Patient will be given erythropoietin x 1 and ferumoxytol IV x 1 to improve underlying anemia. - Will repeat CBC as needed # Right diastolic CHF # Stage III diastolic dysfunction # Fluid overload status, resolving Patient appears clinically dry at this point, will hold on diuresis at this time ECHO 04/29/2025: Normal LV size and function. Estimated EF of 65%. Grade III Diastolic Dysfunction. Right ventricle is dilated with mild RV dysfunction. RVSP 47mmHg. RAP 15mmHg. Severe biatrial dilation. Moderate to Severe AOV calcification with no stenosis Mild tricuspid regurgitation No pericardial effusion. Plan: - Continue strict daily body weight - Continue hemodialysis per nephrology - Daily weights - Strict I&O #Jejunostomy tube #Abdominal abscess Patient report said that there was an intra-abdominal abscess that have could have been from a perforated ulcer in the past See also note reviewed, mentions that patient likely had a marginal ulcer, but also was not seen on EGD without, currently patient has no abdominal tenderness and is totally asymptomatic. No current drain at this time Patient is status post laparoscopic J-tube placement and is currently on feeds Patient will continue to have this tube and will likely go to a long-term care facility with this until patient can swallow safely Plan: ? Completed antibiotic treatment. ? Monitor vitals closely #Aspiration Pneumonia, completed treatment #Obesity hypoventilation syndrome and obstructive sleep apnea #Dysphagia #Tracheostomy Patient was intubated and ventilated due to hypoxic respiratory failure, was unable to be extubated. Tracheostomy was placed. PEG tube was able to be placed, patient transferred to [facility] for laparoscopic J-tube placement, is now being transferred back after procedure successfully completed Plan: - Dietary consulted, recommendations appreciated - Respiratory therapy consulted - Blow-by during the day, mechanical ventilation at night as needed at baseline, currently on mechanical ventilation - Completed antibiotic treatment # Atrial fibrillation, by history [id number] score of 3 points indicating 3.2% risk of stroke per year HAS-BLED: 0 Currently rhythm controlled Plan: - Amiodarone 200 mg QDAY - Continue to hold metoprolol tartrate and amlodipine - Will hold heparin drip, risks and benefits discussed with patient, patient agreeable - Keep potassium and magnesium above 4 and 2 respectively - Telemetry #Right internal jugular venous thrombosis #Right arm swelling Continuing free water flushes, patient has gone multiple days of heparin drip since 04/01 Right upper extremity ultrasound May 04-shows right IJ thrombus Plan: ? Heparin drip is being held due to recurrent bleeding from sacral ulcer #Morbid obesity #DM2 A1C 7.6 on 03/05/2025 Patient has a BMI of 79.5->68.7 Plan: - ISS scale 2 - Hypoglycemia protocol ordered - 38 units of Lantus. #Health Maintenance Disposition: Telemetry DVT prophylaxis: Heparin drip being held due to significant bleeding. GI prophylaxis: Protonix Diet: 2Cal Tube Feeds with 30 cc/hour water flush CODE STATUS: Full code Patient plan of care was discussed with the attending physician, Dr. Mendoza. Elizabeth Lamas PGY1 Attending Provider Attestation/Addendum 64-year-old with morbid obesity with subsequent obesity hypoventilation syndrome requiring tracheostomy and J-tube placement, hypertension, type 2 diabetes, atrial fibrillation, right internal jugular DVT and acute kidney injury secondary to ischemic ATN requiring multiple sessions of hemodialysis and sacral ulcers status post wound VAC currently being treated for acute on chronic hypoxic respiratory failure, ischemic ATN. Overnight, patient noted to have significant bleeding from decubitus ulcer and subsequently general surgery was consulted and heparin drip was discontinued. Talked with the patient regarding discontinuation of heparin drip and given that he has a right internal jugular DVT and atrial fibrillation and updated him that he is at risk for strokes and worsening disease progression however he is in agreement to stop the heparin drip for now. In addition, patient is also a Zoroastrianism and refusing blood product and I counseled him regarding need of blood product and risk of not getting it including worsening disease progression which can lead to cardiac arrest and however he understands and continues to refuse for which we will respect his decision. Overnight, the bleeding appears to have slowed down and possibly stopped for which we will continue to monitor closely. As per kidney function, nephrology did not recommend any further sessions of hemodialysis as patient is making urine. Overall prognosis appears to be poor. I reviewed above note and agree with findings and plans. I have also personally examined the patient with medicine team and went over assessment and plan with medical team including international trade analyst and resident physician.
[2025-05-05] MEDS: INSULIN LISPRO (AdmeLOG) 1 UNIT/0.01 ML UNIT SC (23:33)
[2025-05-06] VITALS (11 sets, daily range): BP systolic 95–121; BP diastolic 70–82; PULSE 82–114; RESP 13–35; TEMP 36.4–36.9; O2SAT 93–99; BMI 68.5
--- NOTE | 2025-05-06 | XR_ITS ---
Examination: Venous access removal of nontunneled dialysis catheter Date and time: May 06, 2000 2512 noon INDICATIONS: No longer needed for dialysis catheter TECHNIQUE AND FINDINGS: Informed consent provided. Timeout performed. Skin prepped over the entrance site of the left internal jugular Vas-Cath and sterile drape applied hand hygiene Successful removal of nontunneled dialysis catheter Direct pressure applied for control of hemostasis Estimated blood loss 0 cc IMPRESSION: Successful venous access removal nontunneled dialysis
[2025-05-06 07:08] LABS: Basophils # (Auto) 0.0 Thou/mm3 (0.0-0.2); Basophils % (Auto) 0 % (0-2.5); Eosinophils # (Auto) 0.5 Thou/mm3 (0.0-0.5); Eosinophils % (Auto) 3 % (0-10); Hematocrit 22.1 % (41.0-53.0); Immature Granulocytes Auto 0.09 Thou/mm3 (0.00-0.00); Lymphocytes # (Auto) 3.3 Thou/mm3 (1.0-4.8); Lymphocytes % (Auto) 22 % (10-50); Mean Corpuscular HGB Conc 32.1 g/dl (31.0-37.0); Mean Corpuscular Hemoglobin 28.6 pg (25.0-35.0); Mean Corpuscular Volume 89 fL (80-100); Monocytes # (Auto) 1.7 Thou/mm3 (0.0-0.8); Monocytes % (Auto) 11 % (0-12); Neutrophils # (Auto) 9.7 Thou/mm3 (1.8-7.7); Neutrophils % (Auto) 64 % (37-80); Nucleated Red Blood Cell # 0.00 Thou/mm3 (0.00-0.00); Nucleated Red Blood Cell % 0 /100 WBC (0); Platelet Count 330 Thou/mm3 (140-440); RDW Standard Deviation 59.7 fL (35.1-43.9); Red Blood Count 2.48 Miln/mm3 (4.50-5.90); White Blood Count 15.3 Thou/mm3 (3.8-10.6)
[2025-05-06 07:13] LABS: Hemoglobin 7.1 g/dL (13.5-16.0)
[2025-05-06] MEDS: ACETAMINOPHEN 325 MG TABLET 650 MG PO (07:14)
[2025-05-06 07:32] LABS: Alanine Aminotransferase < 7 U/L (10-49); Albumin, Serum 3.3 gm/dL (3.4-4.8); Albumin/Globulin Ratio 1.4 (1.2-2.2); Alkaline Phosphatase 130 U/L (46-116); Anion Gap 9 (7-16); Aspartate Amino Transferase 15 U/L (0-34); BUN/Creatinine Ratio 26 Ratio (12-20); Bilirubin,Total 0.3 mg/dL (0.3-1.2); Blood Urea Nitrogen 82 mg/dL (9-23); Calcium 8.8 mg/dL (8.3-10.6); Calcium (Corrected) 9.4 mg/dL (8.5-10.1); Carbon Dioxide 33.2 mMol/L (20.0-31.0); Chloride 97 mMol/L (98-107); Creatinine (Component) 3.2 mg/dL (0.6-1.3); Estimated Creatinine Clearance 38.2 mL/min (>60); Globulin 2.4 gm/dL (2.3-3.5); Glucose 145 mg/dL (74-106); Magnesium 2.5 mg/dL (1.6-2.6); Osmolality,Calculated 305 (275-295); Phosphorous 4.4 mg/dL (2.4-5.1); Potassium 4.7 mMol/L (3.4-5.1); Sodium 139 mMol/L (136-145); Total Protein 5.7 gm/dL (5.7-8.2); eGFR 21 See Note
--- NOTE | 2025-05-06 08:39 | PD.RESPRO ---
Documentation for date of: 05/06/25 Subjective Subjective Interval history: Mr. Ortega is a 64-year-old male with a past medical history of type 2 diabetes mellitus, history of ATN, A-fib, hypertension, severe right-sided heart failure, HFpEF, severe BASIA, status post tracheostomy and jejunostomy, patient was previously admitted here for hypoxic respiratory failure requiring mechanical ventilation, was later transferred out to [facility] for jejunostomy tube placement, complicated by abdominal abscess, patient is now transferred back to [facility] for further management. The patient is noted to have pneumonia and acute hypoxic respiratory failure, requiring mechanical ventilation, nephrology was consulted as patient's renal function continues to worsen. Patient had previously required hemodialysis for ATN, but is a poor dialysis candidate outpatient. Patient noted to have significant fluid overload. Team gave 1 dose of Bumex with mild worsening of renal function. 500 cc bolus was given. Renal consultation requested for worsening renal failure in the setting of fluid overload. 04/29/2025: Patient examined at bedside today. No acute overnight events. Pending electrolyte labs. White count 11, hemoglobin 9.5, urine output 2114 milliliters. Patient currently in dialysis currently, goal fluid removal 2.1 L. Currently on mechanical ventilation. Pt to get debridement of sacral wound today. No complaints this time. 04/30/2025 patient is evaluated at the bedside, no acute overnight events, currently on trach collar, noted improvement in swelling, urine output adequate, will consider holding off on session of hemodialysis and continuing monitoring of renal function and urine output. Wound VAC to sacral wound draining serosanguineous fluid. 05/01/2025 patient evaluated bedside, reported no active complaints, improvement in swelling, continue holding hemodialysis, urine output adequate. Will keep hemodialysis catheter and reevaluate tomorrow if need for continued hemodialysis. 05/02/2025 patient evaluated bedside, no active complaints, currently on blow-by, saturating well, overnight urine output 3 L, creatinine 3.4, will continue monitoring, reevaluate tomorrow if need for hemodialysis, primary team plans to discharge patient to LTAC, will keep dialysis catheter in place, if needed for future hemodialysis as patient had similar presentation with ATN during prior hospitalization requiring transient hemodialysis before being taken off. 05/03/2025, patient evaluated bedside, on mechanical ventilation, via trach collar, saturating well, urine output 2200 mL overnight, creatinine stable at 3.4, will hold off on hemodialysis, from nephrology standpoint patient can be discharged to LTAC, will keep dialysis catheter in place, if needed for future hemodialysis. Watchful observation of renal function and volume status. 05/04/2025, patient evaluated bedside, currently mechanical ventilation, patient had urine output 4900 mL overnight is a net negative fluid balance of -4300 mL. Repeat labs in the a.m. to assess for electrolytes and renal function. Continue holding hemodialysis, will reassess tomorrow. 05/06/2025, patient evaluated bedside, 1800 mL urine output overnight, sodium 139, potassium 4.7, carbon oxide 33.2, BUN 82 creatinine 3.2, EGFR improved to 21. We will discontinue dialysis catheter, patient currently CKD stage IV. IR dialysis cath removal ordered. Exam Vital Signs Temp Pulse Resp BP Pulse Ox O2 Del Method O2 Flow Rate 98.0 F 82 13 96/70 94 L Mechanical Ventilation 12 05/06/25 08:00 05/06/25 08:00 05/06/25 08:00 05/06/25 08:00 05/06/25 08:00 05/06/25 08:00 05/06/25 08:00 FiO2 55 05/06/25 08:00 Narrative Exam Physical Exam General: Awake and in no acute distress. Responsive, able to write his responses, follow commands, on blow-by, saturating well. HEENT: Normocephalic, atraumatic, mucous membranes moist. Heart: Irregular rhythm, rate controlled, no murmurs. Possible ejection systolic murmur. Lungs: Bilateral coarse crackles. Abdomen: Soft, obese, nondistended, nontender, positive bowel sounds. ?No guarding or rebound tenderness. Neurologic: Alert and oriented x3, no gross neurological deficit, and patient able to move all 4 extremities. Extremities: 1+ bilateral lower extremity edema, 1+ edema right upper extremity. Skin: No rash or ecchymoses. Patient has sacral decubitus ulcer. Objective Labs 05/06/25 06:19 05/06/25 06:19 Labs: Laboratory Results - last 24 hr 05/06/25 06:19 WBC 15.3 H RBC 2.48 L Hgb 7.1 L Hct 22.1 L MCV 89 MCH 28.6 MCHC 32.1 RDW Std Deviation 59.7 H Plt Count 330 D Neut % (Auto) 64 Lymph % (Auto) 22 [place] % (Auto) 11 Eos % (Auto) 3 Baso % (Auto) 0 Neut # (Auto) 9.7 H Lymph # (Auto) 3.3 [place] # (Auto) 1.7 H Eos # (Auto) 0.5 Baso # (Auto) 0.0 Immature Gran # (Auto) 0.09 H Absolute Nucleated RBC 0.00 Immature Gran % 1 H Nucleated RBC % 0 Sodium 139 Potassium 4.7 Chloride 97 L Carbon Dioxide 33.2 H Anion Gap 9 BUN 82 H Creatinine 3.2 H Estim Creat Clear Calc 38.2 L eGFR 21 L BUN/Creatinine Ratio 26 H Glucose 145 H Calculated Osmolality 305 H Calcium 8.8 Corrected Calcium 9.4 Phosphorus 4.4 Magnesium 2.5 Total Bilirubin 0.3 AST 15 ALT < 7 L Alkaline Phosphatase 130 H Total Protein 5.7 Albumin 3.3 L Globulin 2.4 Albumin/Globulin Ratio 1.4 ABG Interpretation ABG results: 04/18/25 04/18/25 04/18/25 04:40 06:27 10:30 ABG pH 7.28 L 7.33 L 7.36 ABG pCO2 72 H* 67 H 61 H ABG pO2 132 H 60 L D 60 L ABG HCO3 34 H 35 H 34 H ABG O2 Saturation 100 H 93 93 ABG Base Excess 6 H 7 H 8 H 04/19/25 08:53 ABG pH 7.47 H D ABG pCO2 45 D ABG pO2 66 L ABG HCO3 33 H ABG O2 Saturation 96 ABG Base Excess 8 H Quality Measures Quality Measures VTE therapy Advance care planning discussed with:: patient Assessment & Plan Assessment Current Active Medications: Generic Name Dose Route Start Last Admin Trade Name Freq PRN Reason Stop Dose Admin Acetaminophen 650 mg 05/01/25 08:47 05/06/25 07:14 Acetaminophen 325 Mg Tablet PO 05/22/25 20:42 650 mg Q6HR PRN Administration pain 1-3 OR Fever >100.4 Hydrocodone Bitart/Acetaminophen 1 tab 05/06/25 08:23 Hydrocodone/Apap 5/325 Tablet PO 05/11/25 08:22 Q8HR PRN PAIN SCALE 4-10(Mod-Sev Amiodarone HCl 200 mg 04/13/25 09:00 05/05/25 09:01 Amiodarone Hcl 200 Mg Tablet GT 05/13/25 08:59 200 mg QDAY KOURTNEY Administration Amlodipine Besylate 10 mg 04/13/25 09:00 05/04/25 09:39 Amlodipine Besylate 5 Mg Tablet GT 05/13/25 08:59 Not Given QDAY KOURTNEY Artificial Tears 0 drop 04/14/25 19:33 Artificial Tears 225 Drop/15 Ml Btl BOTH EYES 05/14/25 19:32 PRN PRN TO KEEP EYES MOIST Ascorbic Acid 500 mg 04/17/25 21:00 05/05/25 21:54 Ascorbic Acid 250 Mg Tablet GT 05/17/25 20:59 500 mg BID KOURTNEY Administration Bumetanide 2 mg 04/21/25 09:00 05/04/25 05:31 Bumetanide Inj 0.25 Mg/Ml Vial 4 Ml IVP 05/21/25 08:59 2 mg BIDD KOURTNEY Administration Dextrose 25 ml 04/12/25 23:32 04/24/25 05:27 Dextrose 50%-Water Inj 50 Ml Syringe IV 05/12/25 23:31 25 ml Q15MIN PRN Administration BG 50-70 responsive npo pt Dextrose 50 ml 04/12/25 23:32 Dextrose 50%-Water Inj 50 Ml Syringe IV 05/12/25 23:31 Q15MIN PRN BG <50 OR BG <70 & pt unresponsive Glucagon 1 mg 04/12/25 23:32 Glucagon Inj 1 Mg Vial IM Q15MIN PRN BG <70, and no IV access Heparin Sodium (Porcine) 3,000 unit 04/24/25 13:46 04/29/25 11:04 Heparin Sod Inj 1000 Unit/Ml Vial 10 Ml INDWELLCAT 05/08/25 13:45 3,000 unit PRN PRN Administration DIALYSIS Albumin Human 25 gm in 100 mls @ 100 mls/min 04/24/25 11:52 Albuminar-25 Ivpb IV PRN PRN DIALYSIS Heparin Sodium/Dextrose 25,000 unit in 250 mls @ 22.085 mls/hr 04/29/25 16:30 05/02/25 13:27 Heparin In D5w Ivpb IV 05/13/25 16:29 11.8 units/kg/hr .[id number] KOURTNEY 24.086 mls/hr Administration Protocol 10.82 UNITS/KG/HR Ferumoxytol 510 mg/ Sodium 117 mls @ 234 mls/hr 05/06/25 08:30 Chloride IV 05/06/25 08:59 .Q30M ONE Insulin Glargine 38 unit 04/13/25 09:00 05/05/25 09:02 Insulin Glargine (Lantus) 5 Unit/0.05 Ml (Per 5 Units) SC 05/13/25 08:59 38 unit QDAY KOURTNEY Administration Insulin Human Lispro 0 unit 04/13/25 00:00 05/06/25 06:22 Insulin Lispro (Admelog) 1 Unit/0.01 Ml Unit SC 05/13/25 00:00 Not Given Q6HR KOURTNEY Protocol Lansoprazole 30 mg 05/05/25 09:00 05/05/25 09:01 Lansoprazole 30 Mg Tab. GT 06/04/25 08:59 30 mg QDAY KOURTNEY Administration Ondansetron HCl 4 mg 04/12/25 23:27 04/17/25 05:28 Ondansetron Inj 2 Mg/Ml Inj 2 Ml IVP 05/12/25 23:26 4 mg Q6H PRN Administration NAUSEA OR VOMITING Protocol Pharmacy Consult 1 each 04/24/25 08:43 Pharmacy Renal Dose Adjustment 1 Ea XX 05/24/25 08:42 PRN PRN CONSULT Polyethylene Glycol 34 gm 05/02/25 09:00 05/05/25 08:59 Polyethylene Glycol 17 Gm Packet GT 06/01/25 08:59 34 gm QDAY KOURTNEY Administration Sennosides 2 tab 05/02/25 09:00 05/05/25 09:01 Senna Tablet GT 06/01/25 08:59 2 tab QDAY KOURTNEY Administration Protocol Zinc Sulfate 220 mg 04/18/25 09:00 05/05/25 09:01 Zinc Sulfate 220 Mg Capsule GT 05/18/25 08:59 220 mg QDAY KOURTNEY Administration Plan 64-year-old male with past medical history of DM2, hypertension, A-fib, and Jehova's witness was admitted to the ICU on 02/27/2025 for shock and acute on chronic hypoxic respiratory failure. He is s/p laparoscopic J-tube placement from [facility]. #Acute kidney injury-- seems to be in Ischemic ATN #Hypermagnesemia, resolved Pending CMP Patient will likely need long-term dialysis as patient is currently in ischemic ATN Patient will need to go to LTAC as patient will need dialysis and mechanical ventilation Currently has Vas-Cath Plan: ? Fuller catheter ? Avoid nephrotoxic agents ? Renally dose medicines ? Trend CMP and electrolytes ?Noted continued improvement in renal function after hemodialysis. Currently EGFR 21, CKD stage IV, patient has adequate urine output, noted improvement in anasarca. Will hold off on hemodialysis, discontinued tunneled dialysis catheter, IR cath removal ordered. #Right diastolic CHF #Decubitus ulcer #Chronic back pain #Jejunostomy tube #Acute on Chronic Hypoxic Hypercapnic Respiratory Failure #Obesity hypoventilation syndrome and obstructive sleep apnea #Tracheostomy #Hx of A-fib #Right internal jugular venous thrombosis #Right arm swelling #Morbid obesity #DM2 Above handled by primary hospitalist team Patient seen and care discussed with my attending physician, Dr. Teressa Tobar pgy 2 Attending Provider Attestation/Addendum Patient seen and examined with resident physician Dr. Tobar. Note reviewed, agree with findings and recommendations. Creatinine seems to be stable and improving. Patient in recovery phase of ATN. Spoke to primary team to DC dialysis catheter. Discharge planning pending to LTAC.
[2025-05-06] MEDS: ZINC SULFATE 220 MG CAPSULE GT (08:45)
[2025-05-06] MEDS: ASCORBIC ACID 250 MG TABLET 500 MG GT ×2 (08:45→20:41)
[2025-05-06] MEDS: EPOETIN ALFA-EPBX INJ 10,000 UNIT/ML VIAL (ESRD) 10000 UNIT SC (08:45)
[2025-05-06] MEDS: AMIODARONE HCL 200 MG TABLET GT (08:46)
[2025-05-06] MEDS: LANSOPRAZOLE 30 MG TAB.RAP.DR GT (08:46)
[2025-05-06] MEDS: HYDROcodone/APAP 5/325 TABLET 1 TAB PO ×2 (08:46→20:42)
[2025-05-06] MEDS: INSULIN GLARGINE (Lantus) 5 UNIT/0.05 ML (PER 5 UNITS) 38 UNIT SC (08:48)
[2025-05-06] MEDS: POLYETHYLENE GLYCOL 17 GM PACKET 34 GM GT (09:00)
--- NOTE | 2025-05-06 09:32 | PC.SS ---
Addendum entered by Janessa Ramírez 05/06/25 16:21: SS received call from Jose at [facility] who is requesting updated information. SS has faxed updated inquiry to [facility]. Original Note: Follow up note: Hemoglobin down trending. On IV iron. Dr. Gannon is considering removing the dialysis cath. Wound Care. Pt is possible d/c to LTAC once he is medically stable.
[2025-05-06] MEDS: ferumoxytoL (ESRD) 510 MG in SODIUM CHLORIDE 0.9% 100 ML 234 MG IV (10:43)
--- NOTE | 2025-05-06 14:36 | PD.RESPRO ---
Documentation for date of: 05/06/25 Subjective Subjective Interval history: No acute events overnight.?Patient seen and examined at bedside this AM, awake and interactive.?Patient reports pain under legs and back when wedge is placed underneath. Patient encouraged to express when experiencing pain when repositioning as this may be a sign that there is too much pressure there so that wedges may be more comfortably placed. Labs and vitals were reviewed. Hemoglobin this morning is 7.1. Will plan to draw labs only every 3 days, using pediatric tubes only. Today the patient received iron infusion per Nephrology. If patient keeps up good urine output and maintains kidney function may be able to remove temporary dialysis catheter.?No further complaints at this time. Review of systems otherwise negative except what is mentioned above. Exam Vital Signs Temp Pulse Resp BP Pulse Ox O2 Del Method O2 Flow Rate 98.5 F 114 H 18 116/79 96 Mechanical Ventilation 12 05/06/25 12:00 05/06/25 14:03 05/06/25 12:00 05/06/25 12:00 05/06/25 14:03 05/06/25 12:00 05/05/25 20:00 FiO2 45 05/06/25 14:03 Narrative Exam Physical Exam General: Awake and in no acute distress. Tracheostomy site clean, on mechanical ventilation, nods to questions, responsive. HEENT: Normocephalic, atraumatic, mucous membranes moist. Heart: Irregular rhythm, rate controlled, no murmurs. Possible ejection systolic murmur. Lungs: Bilateral coarse crackles. Abdomen: Soft, obese, nondistended, nontender, positive bowel sounds. ?No guarding or rebound tenderness. Neurologic: Alert and oriented x3, no gross neurological deficit, and patient able to move all 4 extremities. Extremities: trace bilateral lower extremity edema, trace edema right upper extremity. Skin: No rash or ecchymoses. Patient has sacral decubitus ulcer. Objective Labs 05/06/25 06:19 05/06/25 06:19 Labs: Laboratory Results - last 24 hr 05/06/25 06:19 WBC 15.3 H RBC 2.48 L Hgb 7.1 L Hct 22.1 L MCV 89 MCH 28.6 MCHC 32.1 RDW Std Deviation 59.7 H Plt Count 330 D Neut % (Auto) 64 Lymph % (Auto) 22 [place] % (Auto) 11 Eos % (Auto) 3 Baso % (Auto) 0 Neut # (Auto) 9.7 H Lymph # (Auto) 3.3 [place] # (Auto) 1.7 H Eos # (Auto) 0.5 Baso # (Auto) 0.0 Immature Gran # (Auto) 0.09 H Absolute Nucleated RBC 0.00 Immature Gran % 1 H Nucleated RBC % 0 Sodium 139 Potassium 4.7 Chloride 97 L Carbon Dioxide 33.2 H Anion Gap 9 BUN 82 H Creatinine 3.2 H Estim Creat Clear Calc 38.2 L eGFR 21 L BUN/Creatinine Ratio 26 H Glucose 145 H Calculated Osmolality 305 H Calcium 8.8 Corrected Calcium 9.4 Phosphorus 4.4 Magnesium 2.5 Total Bilirubin 0.3 AST 15 ALT < 7 L Alkaline Phosphatase 130 H Total Protein 5.7 Albumin 3.3 L Globulin 2.4 Albumin/Globulin Ratio 1.4 ABG Interpretation ABG results: 04/18/25 04/18/25 04/18/25 04:40 06:27 10:30 ABG pH 7.28 L 7.33 L 7.36 ABG pCO2 72 H* 67 H 61 H ABG pO2 132 H 60 L D 60 L ABG HCO3 34 H 35 H 34 H ABG O2 Saturation 100 H 93 93 ABG Base Excess 6 H 7 H 8 H 04/19/25 08:53 ABG pH 7.47 H D ABG pCO2 45 D ABG pO2 66 L ABG HCO3 33 H ABG O2 Saturation 96 ABG Base Excess 8 H Quality Measures Quality Measures VTE therapy Advance care planning discussed with:: patient Assessment & Plan Assessment Current Active Medications: Generic Name Dose Route Start Last Admin Trade Name Freq PRN Reason Stop Dose Admin Acetaminophen 650 mg 05/01/25 08:47 05/06/25 07:14 Acetaminophen 325 Mg Tablet PO 05/22/25 20:42 650 mg Q6HR PRN Administration pain 1-3 OR Fever >100.4 Hydrocodone Bitart/Acetaminophen 1 tab 05/06/25 08:23 05/06/25 08:46 Hydrocodone/Apap 5/325 Tablet PO 05/11/25 08:22 1 tab Q8HR PRN Administration PAIN SCALE 4-10(Mod-Sev Amiodarone HCl 200 mg 04/13/25 09:00 05/06/25 08:46 Amiodarone Hcl 200 Mg Tablet GT 05/13/25 08:59 200 mg QDAY KOURTNEY Administration Amlodipine Besylate 10 mg 04/13/25 09:00 05/04/25 09:39 Amlodipine Besylate 5 Mg Tablet GT 05/13/25 08:59 Not Given QDAY KOURTNEY Artificial Tears 0 drop 04/14/25 19:33 Artificial Tears 225 Drop/15 Ml Btl BOTH EYES 05/14/25 19:32 PRN PRN TO KEEP EYES MOIST Ascorbic Acid 500 mg 04/17/25 21:00 05/06/25 08:45 Ascorbic Acid 250 Mg Tablet GT 05/17/25 20:59 500 mg BID KOURTNEY Administration Bumetanide 2 mg 04/21/25 09:00 05/04/25 05:31 Bumetanide Inj 0.25 Mg/Ml Vial 4 Ml IVP 05/21/25 08:59 2 mg BIDD KOURTNEY Administration Dextrose 25 ml 04/12/25 23:32 04/24/25 05:27 Dextrose 50%-Water Inj 50 Ml Syringe IV 05/12/25 23:31 25 ml Q15MIN PRN Administration BG 50-70 responsive npo pt Dextrose 50 ml 04/12/25 23:32 Dextrose 50%-Water Inj 50 Ml Syringe IV 05/12/25 23:31 Q15MIN PRN BG <50 OR BG <70 & pt unresponsive Glucagon 1 mg 04/12/25 23:32 Glucagon Inj 1 Mg Vial IM Q15MIN PRN BG <70, and no IV access Heparin Sodium (Porcine) 3,000 unit 04/24/25 13:46 04/29/25 11:04 Heparin Sod Inj 1000 Unit/Ml Vial 10 Ml INDWELLCAT 05/08/25 13:45 3,000 unit PRN PRN Administration DIALYSIS Albumin Human 25 gm in 100 mls @ 100 mls/min 04/24/25 11:52 Albuminar-25 Ivpb IV PRN PRN DIALYSIS Heparin Sodium/Dextrose 25,000 unit in 250 mls @ 22.085 mls/hr 04/29/25 16:30 05/02/25 13:27 Heparin In D5w Ivpb IV 05/13/25 16:29 11.8 units/kg/hr .[id number] KOURTNEY 24.086 mls/hr Administration Protocol 10.82 UNITS/KG/HR Insulin Glargine 38 unit 04/13/25 09:00 05/06/25 08:48 Insulin Glargine (Lantus) 5 Unit/0.05 Ml (Per 5 Units) SC 05/13/25 08:59 38 unit QDAY KOURTNEY Administration Insulin Human Lispro 0 unit 04/13/25 00:00 05/06/25 13:29 Insulin Lispro (Admelog) 1 Unit/0.01 Ml Unit SC 05/13/25 00:00 Not Given Q6HR KOURTNEY Protocol Lansoprazole 30 mg 05/05/25 09:00 05/06/25 08:46 Lansoprazole 30 Mg Tab.Rap. GT 06/04/25 08:59 30 mg QDAY KOURTNEY Administration Ondansetron HCl 4 mg 04/12/25 23:27 04/17/25 05:28 Ondansetron Inj 2 Mg/Ml Inj 2 Ml IVP 05/12/25 23:26 4 mg Q6H PRN Administration NAUSEA OR VOMITING Protocol Pharmacy Consult 1 each 04/24/25 08:43 Pharmacy Renal Dose Adjustment 1 Ea XX 05/24/25 08:42 PRN PRN CONSULT Polyethylene Glycol 34 gm 05/02/25 09:00 05/06/25 09:00 Polyethylene Glycol 17 Gm Packet GT 06/01/25 08:59 34 gm QDAY KOURTNEY Administration Sennosides 2 tab 05/02/25 09:00 05/06/25 08:46 Senna Tablet 06/01/25 08:59 2 tab QDAY KOURTNEY Administration Protocol Zinc Sulfate 220 mg 04/18/25 09:00 05/06/25 08:45 Zinc Sulfate 220 Mg Capsule GT 05/18/25 08:59 220 mg QDAY KOURTNEY Administration Plan Assessment 64-year-old male with past medical history of DM2, hypertension, A-fib, and Jehova's witness was admitted to the ICU on 02/27/2025 for shock and acute hypoxic respiratory failure. He is s/p laparoscopic J-tube placement from [facility]. #Acute kidney injury-suspicion of ischemic ATN #Fluid overload, improving #Acute on chronic hypoxic respiratory failure, improving #Started on hemodialysis 04/24/2025, status post temporary dialysis catheter placement Patient looks clinically hypervolemic at this time 04/20 ? Attempt was made to place Fuller catheter however unable to pass catheter due to significant resistance and attempt was terminated. Discussed with nursing about possibility of weighing briefs daily. Patient had temporary hemodialysis catheter placed 04/24, receiving dialysis had 1 L removed on 04/24, 2 L on 04/25, 2.14 on 04/26, 2.1 L on 04/29 Plan: -Will hold Bumex. -Continue to hold heparin GGT -Monitor urine output -Avoid nephrotoxic agents -Renally dose medication #Decubitus ulcer status post excisional debridement of sacral decubitus ulcer, washout and placement of wound VAC, 04/29 #Chronic back pain Not requiring surgical intervention at this time Unstageable sacral ulcer Debridement bedside on 04/17/2025 Wound reassessed by wound care team and general surgeon on 04/24/202504/29: excisional debridement of sacral decubitus ulcer, washout and placement of wound VAC. 05/02: Patient had significant bleeding overnight, wound VAC leaked. Hemoglobin stable this morning, patient's bleeding from wound overnight was controlled with suture ligation. Wound was assessed by general surgeon, patient was transitioned back to red dry dressings daily. Plan: - Continue wound care - General Surgery consulted, appreciate recommendations - Continue to hold heparin - [place] 5 as needed - Skin barrier creams PRN - Referral to wound care # Normocytic normochromic anemia Multifactorial. Patient's baseline hemoglobin throughout the hospitalization has been in the range 9?11, patient did have some bleeding from wound VAC site on 05/02 which was controlled by suture ligation by general surgery. Had recurrent bleeding and eventually heparin drip was held. - Patient is a Hoah[employer]ism, denies any blood transfusion/blood products - Patient will be given erythropoietin x 1 and ferumoxytol IV x 1 to improve underlying anemia. - Will repeat CBC as needed # Right diastolic CHF # Stage III diastolic dysfunction # Fluid overload status, resolving Patient appears clinically dry at this point, will hold on diuresis at this time ECHO 04/29/2025: Normal LV size and function. Estimated EF of 65%. Grade III Diastolic Dysfunction. Right ventricle is dilated with mild RV dysfunction. RVSP 47mmHg. RAP 15mmHg. Severe biatrial dilation. Moderate to Severe AOV calcification with no stenosis Mild tricuspid regurgitation No pericardial effusion. Plan: - Continue strict daily body weight - Continue hemodialysis per nephrology - Daily weights - Strict I&O - Renal panel every 3 days - If keeps up urine output and GFR may be able to remove temporary dialysis catheter #Jejunostomy tube #Abdominal abscess Patient report said that there was an intra-abdominal abscess that have could have been from a perforated ulcer in the past See also note reviewed, mentions that patient likely had a marginal ulcer, but also was not seen on EGD without, currently patient has no abdominal tenderness and is totally asymptomatic. No current drain at this time Patient is status post laparoscopic J-tube placement and is currently on feeds Patient will continue to have this tube and will likely go to a long-term care facility with this until patient can swallow safely Plan: ? Completed antibiotic treatment. ? Monitor vitals closely #Aspiration Pneumonia, completed treatment #Obesity hypoventilation syndrome and obstructive sleep apnea #Dysphagia #Tracheostomy Patient was intubated and ventilated due to hypoxic respiratory failure, was unable to be extubated. Tracheostomy was placed. PEG tube was able to be placed, patient transferred to [facility] for laparoscopic J-tube placement, is now being transferred back after procedure successfully completed Plan: - Dietary consulted, recommendations appreciated - Respiratory therapy consulted - Blow-by during the day, mechanical ventilation at night as needed at baseline, currently on mechanical ventilation - Completed antibiotic treatment # Atrial fibrillation, by history [id number] score of 3 points indicating 3.2% risk of stroke per year HAS-BLED: 0 Currently rhythm controlled Plan: - Amiodarone 200 mg QDAY - Continue to hold metoprolol tartrate and amlodipine - Will hold heparin drip, risks and benefits discussed with patient, patient agreeable - Keep potassium and magnesium above 4 and 2 respectively - Telemetry #Right internal jugular venous thrombosis #Right arm swelling Continuing free water flushes, patient has gone multiple days of heparin drip since 04/01 Right upper extremity ultrasound May 04-shows right IJ thrombus Plan: ? Heparin drip is being held due to recurrent bleeding from sacral ulcer #Morbid obesity #DM2 A1C 7.6 on 03/05/2025 Patient has a BMI of 79.5->68.7 Plan: - ISS scale 2 - Hypoglycemia protocol ordered - 38 units of Lantus. #Health Maintenance Disposition: Telemetry DVT prophylaxis: Heparin drip being held due to significant bleeding. GI prophylaxis: Protonix Diet: 2Cal Tube Feeds with 30 cc/hour water flush CODE STATUS: Full code Patient plan of care was discussed with the attending physician, Dr. Obad. Evi Betts PGY2 Attending Provider Attestation/Addendum 64-year-old with morbid obesity with subsequent obesity hypoventilation syndrome requiring tracheostomy and J-tube placement, hypertension, type 2 diabetes, atrial fibrillation, right internal jugular DVT and acute kidney injury secondary to ischemic ATN requiring multiple sessions of hemodialysis and sacral ulcers status post wound VAC currently being treated for acute on chronic hypoxic respiratory failure, ischemic ATN. Overnight, patient noted to have significant bleeding from decubitus ulcer and subsequently general surgery was consulted and heparin drip was discontinued. Talked with the patient regarding discontinuation of heparin drip and given that he has a right internal jugular DVT and atrial fibrillation and updated him that he is at risk for strokes and worsening disease progression however he is in agreement to stop the heparin drip for now. In addition, patient is also a Hoahaoism and refusing blood product and I counseled him regarding need of blood product and risk of not getting it including worsening disease progression which can lead to cardiac arrest and however he understands and continues to refuse for which we will respect his decision. Overnight, the bleeding appears to have slowed down and possibly stopped for which we will continue to monitor closely. As per kidney function, nephrology did not recommend any further sessions of hemodialysis as patient is making urine. Overall prognosis appears to be poor. I reviewed above note and agree with findings and plans. I have also personally examined the patient with medicine team and went over assessment and plan with medical team including fashion styling intern and resident physician.
[2025-05-06] MEDS: SOD HYPOCHLORITE 1/4 STR 473 ML BTL IRRIG (20:45)
[2025-05-07] VITALS (15 sets, daily range): BP systolic 99–134; BP diastolic 65–90; PULSE 61–123; RESP 11–35; TEMP 36.3–37.1; O2SAT 91–99; BMI 68.5
--- NOTE | 2025-05-07 08:21 | ESPR_ITS ---
Documentation for date of: 05/07/25 Subjective Subjective Interval history: Mr. Ortega is a 64-year-old male with a past medical history of type 2 diabetes mellitus, history of ATN, A-fib, hypertension, severe right-sided heart failure, HFpEF, severe BASIA, status post tracheostomy and jejunostomy, patient was previously admitted here for hypoxic respiratory failure requiring mechanical ventilation, was later transferred out to [facility] for jejunostomy tube placement, complicated by abdominal abscess, patient is now transferred back to [facility] for further management. The patient is noted to have pneumonia and acute hypoxic respiratory failure, requiring mechanical ventilation, nephrology was consulted as patient's renal function continues to worsen. Patient had previously required hemodialysis for ATN, but is a poor dialysis candidate outpatient. Patient noted to have significant fluid overload. Team gave 1 dose of Bumex with mild worsening of renal function. 500 cc bolus was given. Renal consultation requested for worsening renal failure in the setting of fluid overload. 05/02/2025 patient evaluated bedside, no active complaints, currently on blow-by, saturating well, overnight urine output 3 L, creatinine 3.4, will continue monitoring, reevaluate tomorrow if need for hemodialysis, primary team plans to discharge patient to LTAC, will keep dialysis catheter in place, if needed for future hemodialysis as patient had similar presentation with ATN during prior hospitalization requiring transient hemodialysis before being taken off. 05/03/2025, patient evaluated bedside, on mechanical ventilation, via trach collar, saturating well, urine output 2200 mL overnight, creatinine stable at 3.4, will hold off on hemodialysis, from nephrology standpoint patient can be discharged to LTAC, will keep dialysis catheter in place, if needed for future hemodialysis. Watchful observation of renal function and volume status. 05/04/2025, patient evaluated bedside, currently mechanical ventilation, patient had urine output 4900 mL overnight is a net negative fluid balance of -4300 mL. Repeat labs in the a.m. to assess for electrolytes and renal function. Continue holding hemodialysis, will reassess tomorrow. 05/06/2025, patient evaluated bedside, 1800 mL urine output overnight, sodium 139, potassium 4.7, carbon oxide 33.2, BUN 82 creatinine 3.2, EGFR improved to 21. We will discontinue dialysis catheter, patient currently CKD stage IV. IR dialysis cath removal ordered. 05/07/2025, patient evaluated bedside, on mechanical ventilation saturating 92%, 45% FiO2, urine output 2900 mL overnight, patient received Feraheme and Retacrit yesterday. Dialysis catheter was discontinued. Exam Vital Signs Temp Pulse Resp BP Pulse Ox O2 Del Method O2 Flow Rate 97.3 F 110 H 32 H 121/70 92 L Mechanical Ventilation 12 05/07/25 07:42 05/07/25 07:42 05/07/25 07:42 05/07/25 07:42 05/07/25 07:42 05/07/25 07:42 05/07/25 07:42 FiO2 45 05/07/25 07:42 Narrative Exam Physical Exam General: Awake and in no acute distress. Responsive, able to write his responses, follow commands, trach collar, saturating well. HEENT: Normocephalic, atraumatic, mucous membranes moist. Heart: Irregular rhythm, rate controlled, no murmurs. Possible ejection systolic murmur. Lungs: Bilateral coarse crackles. Abdomen: Soft, obese, nondistended, nontender, positive bowel sounds. ?No guarding or rebound tenderness. Neurologic: Alert and oriented x3, no gross neurological deficit, and patient able to move all 4 extremities. Extremities: 1+ bilateral lower extremity edema, 1+ edema right upper extremity. Skin: No rash or ecchymoses. Patient has sacral decubitus ulcer. Objective Labs 05/06/25 06:19 05/06/25 06:19 ABG Interpretation ABG results: 04/18/25 04/18/25 04/18/25 04:40 06:27 10:30 ABG pH 7.28 L 7.33 L 7.36 ABG pCO2 72 H* 67 H 61 H ABG pO2 132 H 60 L D 60 L ABG HCO3 34 H 35 H 34 H ABG O2 Saturation 100 H 93 93 ABG Base Excess 6 H 7 H 8 H 04/19/25 08:53 ABG pH 7.47 H D ABG pCO2 45 D ABG pO2 66 L ABG HCO3 33 H ABG O2 Saturation 96 ABG Base Excess 8 H Quality Measures Quality Measures VTE therapy Advance care planning discussed with:: patient Assessment & Plan Assessment Current Active Medications: Generic Name Dose Route Start Last Admin Trade Name Freq PRN Reason Stop Dose Admin Acetaminophen 650 mg 05/01/25 08:47 05/06/25 07:14 Acetaminophen 325 Mg Tablet PO 05/22/25 20:42 650 mg Q6HR PRN Administration pain 1-3 OR Fever >100.4 Hydrocodone Bitart/Acetaminophen 1 tab 05/06/25 08:23 05/06/25 20:42 Hydrocodone/Apap 5/325 Tablet PO 05/11/25 08:22 1 tab Q8HR PRN Administration PAIN SCALE 4-10(Mod-Sev Amiodarone HCl 200 mg 04/13/25 09:00 05/06/25 08:46 Amiodarone Hcl 200 Mg Tablet GT 05/13/25 08:59 200 mg QDAY KOURTNEY Administration Amlodipine Besylate 10 mg 04/13/25 09:00 05/04/25 09:39 Amlodipine Besylate 5 Mg Tablet GT 05/13/25 08:59 Not Given QDAY KOURTNEY Artificial Tears 0 drop 04/14/25 19:33 Artificial Tears 225 Drop/15 Ml Btl BOTH EYES 05/14/25 19:32 PRN PRN TO KEEP EYES MOIST Ascorbic Acid 500 mg 04/17/25 21:00 05/06/25 20:41 Ascorbic Acid 250 Mg Tablet GT 05/17/25 20:59 500 mg BID KOURTNEY Administration Bumetanide 2 mg 04/21/25 09:00 05/04/25 05:31 Bumetanide Inj 0.25 Mg/Ml Vial 4 Ml IVP 05/21/25 08:59 2 mg BIDD KOURTNEY Administration Dextrose 25 ml 04/12/25 23:32 04/24/25 05:27 Dextrose 50%-Water Inj 50 Ml Syringe IV 05/12/25 23:31 25 ml Q15MIN PRN Administration BG 50-70 responsive npo pt Dextrose 50 ml 04/12/25 23:32 Dextrose 50%-Water Inj 50 Ml Syringe IV 05/12/25 23:31 Q15MIN PRN BG <50 OR BG <70 & pt unresponsive Glucagon 1 mg 04/12/25 23:32 Glucagon Inj 1 Mg Vial IM Q15MIN PRN BG <70, and no IV access Heparin Sodium (Porcine) 3,000 unit 04/24/25 13:46 04/29/25 11:04 Heparin Sod Inj 1000 Unit/Ml Vial 10 Ml INDWELLCAT 05/08/25 13:45 3,000 unit PRN PRN Administration DIALYSIS Albumin Human 25 gm in 100 mls @ 100 mls/min 04/24/25 11:52 Albuminar-25 Ivpb IV PRN PRN DIALYSIS Heparin Sodium/Dextrose 25,000 unit in 250 mls @ 22.085 mls/hr 04/29/25 16:30 05/02/25 13:27 Heparin In D5w Ivpb IV 05/13/25 16:29 11.8 units/kg/hr .[id number] KOURTNEY 24.086 mls/hr Administration Protocol 10.82 UNITS/KG/HR Insulin Glargine 38 unit 04/13/25 09:00 05/06/25 08:48 Insulin Glargine (Lantus) 5 Unit/0.05 Ml (Per 5 Units) SC 05/13/25 08:59 38 unit QDAY KOURTNEY Administration Insulin Human Lispro 0 unit 04/13/25 00:00 05/07/25 05:53 Insulin Lispro (Admelog) 1 Unit/0.01 Ml Unit SC 05/13/25 00:00 Not Given Q6HR KOURTNEY Protocol Lansoprazole 30 mg 05/05/25 09:00 05/06/25 08:46 Lansoprazole 30 Mg Tab. GT 06/04/25 08:59 30 mg QDAY KOURTNEY Administration Ondansetron HCl 4 mg 04/12/25 23:27 04/17/25 05:28 Ondansetron Inj 2 Mg/Ml Inj 2 Ml IVP 05/12/25 23:26 4 mg Q6H PRN Administration NAUSEA OR VOMITING Protocol Pharmacy Consult 1 each 04/24/25 08:43 Pharmacy Renal Dose Adjustment 1 Ea XX 05/24/25 08:42 PRN PRN CONSULT Polyethylene Glycol 34 gm 05/02/25 09:00 05/06/25 09:00 Polyethylene Glycol 17 Gm Packet GT 06/01/25 08:59 34 gm QDAY KOURTNEY Administration Sennosides 2 tab 05/02/25 09:00 05/06/25 08:46 Senna Tablet GT 06/01/25 08:59 2 tab QDAY KOURTNEY Administration Protocol Sodium Hypochlorite 473 ml 05/06/25 21:00 05/06/25 20:45 Sod Hypochlorite 1/4 Str 473 Ml Btl IRRIG 06/05/25 20:59 473 ml BID KOURTNEY Administration Zinc Sulfate 220 mg 04/18/25 09:00 05/06/25 08:45 Zinc Sulfate 220 Mg Capsule GT 05/18/25 08:59 220 mg QDAY KOURTNEY Administration Plan 64-year-old male with past medical history of DM2, hypertension, A-fib, and Jehova's witness was admitted to the ICU on 02/27/2025 for shock and acute on chronic hypoxic respiratory failure. He is s/p laparoscopic J-tube placement from [facility]. #Acute kidney injury-- seems to be in Ischemic ATN #Hypermagnesemia, resolved Pending CMP Patient will likely need long-term dialysis as patient is currently in ischemic ATN Patient will need to go to LTAC as patient will need dialysis and mechanical ventilation Currently has Vas-Cath Plan: ? Fuller catheter ? Avoid nephrotoxic agents ? Renally dose medicines ? Trend CMP and electrolytes ?Noted continued improvement in renal function after hemodialysis. Currently EGFR 21, CKD stage IV, patient has adequate urine output, noted improvement in anasarca. Will hold off on hemodialysis, discontinued tunneled dialysis catheter, IR cath removal ordered. ? Ordered Feraheme 550 Mg x 1 ? Ordered Retacrit 10,000 units x 1 ?Discontinue dialysis catheter #Right diastolic CHF #Decubitus ulcer #Chronic back pain #Jejunostomy tube #Acute on Chronic Hypoxic Hypercapnic Respiratory Failure #Obesity hypoventilation syndrome and obstructive sleep apnea #Tracheostomy #Hx of A-fib #Right internal jugular venous thrombosis #Right arm swelling #Morbid obesity #DM2 Above handled by primary hospitalist team Patient seen and care discussed with my attending physician, Dr. Teressa Tobar pgy 2 Attending Provider Attestation/Addendum Patient seen and examined with resident physician Dr. Tobar. Note reviewed, agree with findings and recommendations. BUN/creatinine stable. Dialysis catheter was removed. ATN seems to be in recovery phase. Pending placement. Labs 3 times weekly with pediatric tubes due to his L[employer] status.
[2025-05-07] MEDS: POLYETHYLENE GLYCOL 17 GM PACKET 34 GM GT (08:55)
[2025-05-07] MEDS: LANSOPRAZOLE 30 MG TAB.RAP.DR GT (08:56)
[2025-05-07] MEDS: ZINC SULFATE 220 MG CAPSULE GT (08:56)
[2025-05-07] MEDS: AMIODARONE HCL 200 MG TABLET GT (08:56)
[2025-05-07] MEDS: ASCORBIC ACID 250 MG TABLET 500 MG GT ×2 (08:57→20:30)
[2025-05-07] MEDS: INSULIN GLARGINE (Lantus) 5 UNIT/0.05 ML (PER 5 UNITS) 38 UNIT SC (08:57)
--- NOTE | 2025-05-07 10:59 | ESPR_ITS ---
<Statement entered by Pavel Mendoza MD - 05/16/25 07:47> I reviewed above note and agree with findings and plans. I have also personally examined the patient with medicine team and went over assessment and plan with medical team including real estate intern and resident physician. Documentation for date of: 05/07/25 Subjective Subjective Interval history: Patient seen and examined at bedside. Patient's blood pressure improved, catheter removed by interventional radiology yesterday. Patient continues to have good urine output, around 2.9 L. No significant bleeding noted from sacral wound. Will repeat labs in 48 hours. Exam Vital Signs Temp Pulse Resp BP Pulse Ox O2 Del Method O2 Flow Rate 97.3 F 115 H 32 H 121/70 92 L Mechanical Ventilation 12 05/07/25 07:42 05/07/25 08:56 05/07/25 07:42 05/07/25 08:56 05/07/25 07:42 05/07/25 07:42 05/07/25 07:42 FiO2 45 05/07/25 07:42 Narrative Exam Physical Exam General: Awake and in no acute distress. Tracheostomy site clean, on mechanical ventilation, nods to questions, responsive. HEENT: Normocephalic, atraumatic, mucous membranes moist. Heart: Irregular rhythm, rate controlled, no murmurs. Possible ejection systolic murmur. Lungs: Bilateral coarse crackles. Abdomen: Soft, obese, nondistended, nontender, positive bowel sounds. ?No guarding or rebound tenderness. Neurologic: Alert and oriented x3, no gross neurological deficit, and patient able to move all 4 extremities. Extremities: trace bilateral lower extremity edema, trace edema right upper extremity. Skin: No rash or ecchymoses. Patient has sacral decubitus ulcer. Objective Labs 05/06/25 06:19 05/06/25 06:19 ABG Interpretation ABG results: 04/18/25 04/18/25 04/18/25 04:40 06:27 10:30 ABG pH 7.28 L 7.33 L 7.36 ABG pCO2 72 H* 67 H 61 H ABG pO2 132 H 60 L D 60 L ABG HCO3 34 H 35 H 34 H ABG O2 Saturation 100 H 93 93 ABG Base Excess 6 H 7 H 8 H 04/19/25 08:53 ABG pH 7.47 H D ABG pCO2 45 D ABG pO2 66 L ABG HCO3 33 H ABG O2 Saturation 96 ABG Base Excess 8 H Quality Measures Quality Measures VTE therapy Advance care planning discussed with:: patient Assessment & Plan Assessment Current Active Medications: Generic Name Dose Route Start Last Admin Trade Name Freq PRN Reason Stop Dose Admin Acetaminophen 650 mg 05/01/25 08:47 05/06/25 07:14 Acetaminophen 325 Mg Tablet PO 05/22/25 20:42 650 mg Q6HR PRN Administration pain 1-3 OR Fever >100.4 Hydrocodone Bitart/Acetaminophen 1 tab 05/06/25 08:23 05/06/25 20:42 Hydrocodone/Apap 5/325 Tablet PO 05/11/25 08:22 1 tab Q8HR PRN Administration PAIN SCALE 4-10(Mod-Sev Amiodarone HCl 200 mg 04/13/25 09:00 05/07/25 08:56 Amiodarone Hcl 200 Mg Tablet GT 05/13/25 08:59 200 mg QDAY KOURTNEY Administration Amlodipine Besylate 10 mg 04/13/25 09:00 05/04/25 09:39 Amlodipine Besylate 5 Mg Tablet GT 05/13/25 08:59 Not Given QDAY KOURTNEY Artificial Tears 0 drop 04/14/25 19:33 Artificial Tears 225 Drop/15 Ml Btl BOTH EYES 05/14/25 19:32 PRN PRN TO KEEP EYES MOIST Ascorbic Acid 500 mg 04/17/25 21:00 05/07/25 08:57 Ascorbic Acid 250 Mg Tablet GT 05/17/25 20:59 500 mg BID KOURTNEY Administration Bumetanide 2 mg 04/21/25 09:00 05/04/25 05:31 Bumetanide Inj 0.25 Mg/Ml Vial 4 Ml IVP 05/21/25 08:59 2 mg BIDD KOURTNEY Administration Dextrose 25 ml 04/12/25 23:32 04/24/25 05:27 Dextrose 50%-Water Inj 50 Ml Syringe IV 05/12/25 23:31 25 ml Q15MIN PRN Administration BG 50-70 responsive npo pt Dextrose 50 ml 04/12/25 23:32 Dextrose 50%-Water Inj 50 Ml Syringe IV 05/12/25 23:31 Q15MIN PRN BG <50 OR BG <70 & pt unresponsive Glucagon 1 mg 04/12/25 23:32 Glucagon Inj 1 Mg Vial IM Q15MIN PRN BG <70, and no IV access Heparin Sodium (Porcine) 3,000 unit 04/24/25 13:46 04/29/25 11:04 Heparin Sod Inj 1000 Unit/Ml Vial 10 Ml INDWELLCAT 05/08/25 13:45 3,000 unit PRN PRN Administration DIALYSIS Albumin Human 25 gm in 100 mls @ 100 mls/min 04/24/25 11:52 Albuminar-25 Ivpb IV PRN PRN DIALYSIS Heparin Sodium/Dextrose 25,000 unit in 250 mls @ 22.085 mls/hr 04/29/25 16:30 05/02/25 13:27 Heparin In D5w Ivpb IV 05/13/25 16:29 11.8 units/kg/hr .[id number] KOURTNEY 24.086 mls/hr Administration Protocol 10.82 UNITS/KG/HR Insulin Glargine 38 unit 04/13/25 09:00 05/07/25 08:57 Insulin Glargine (Lantus) 5 Unit/0.05 Ml (Per 5 Units) SC 05/13/25 08:59 38 unit QDAY KOURTNEY Administration Insulin Human Lispro 0 unit 04/13/25 00:00 05/07/25 05:53 Insulin Lispro (Admelog) 1 Unit/0.01 Ml Unit SC 05/13/25 00:00 Not Given Q6HR [facility] Protocol Lansoprazole 30 mg 05/05/25 09:00 05/07/25 08:56 Lansoprazole 30 Mg Tab. GT 06/04/25 08:59 30 mg QDAY KOURTNEY Administration Ondansetron HCl 4 mg 04/12/25 23:27 04/17/25 05:28 Ondansetron Inj 2 Mg/Ml Inj 2 Ml IVP 05/12/25 23:26 4 mg Q6H PRN Administration NAUSEA OR VOMITING Protocol Pharmacy Consult 1 each 04/24/25 08:43 Pharmacy Renal Dose Adjustment 1 Ea XX 05/24/25 08:42 PRN PRN CONSULT Polyethylene Glycol 34 gm 05/02/25 09:00 05/07/25 08:55 Polyethylene Glycol 17 Gm Packet GT 06/01/25 08:59 34 gm QDAY KOURTNEY Administration Sennosides 2 tab 05/02/25 09:00 05/07/25 08:57 Senna Tablet GT 06/01/25 08:59 2 tab QDAY KOURTNEY Administration Protocol Sodium Hypochlorite 473 ml 05/06/25 21:00 05/06/25 20:45 Sod Hypochlorite 1/4 Str 473 Ml Btl IRRIG 06/05/25 20:59 473 ml BID KOURTNEY Administration Zinc Sulfate 220 mg 04/18/25 09:00 05/07/25 08:56 Zinc Sulfate 220 Mg Capsule GT 05/18/25 08:59 220 mg QDAY KOURTNEY Administration Plan Assessment 64-year-old male with past medical history of DM2, hypertension, A-fib, and Jehova's witness was admitted to the ICU on 02/27/2025 for shock and acute hypoxic respiratory failure. He is s/p laparoscopic J-tube placement from [facility]. #Acute kidney injury-suspicion of ischemic ATN #Fluid overload, improving #Acute on chronic hypoxic respiratory failure, improving #Started on hemodialysis 04/24/2025, status post temporary dialysis catheter placement Patient looks clinically hypervolemic at this time 04/20 ? Attempt was made to place Fuller catheter however unable to pass catheter due to significant resistance and attempt was terminated. Discussed with nursing about possibility of weighing briefs daily. Patient had temporary hemodialysis catheter placed 04/24, receiving dialysis had 1 L removed on 04/24, 2 L on 04/25, 2.14 on 04/26, 2.1 L on 04/29 Plan: -Continue to hold Bumex. -Continue to hold heparin GGT -Monitor urine output -Avoid nephrotoxic agents -Renally dose medication #Decubitus ulcer status post excisional debridement of sacral decubitus ulcer, washout and placement of wound VAC, 04/29 #Chronic back pain Not requiring surgical intervention at this time Unstageable sacral ulcer Debridement bedside on 04/17/2025 Wound reassessed by wound care team and general surgeon on 04/24/202504/29: excisional debridement of sacral decubitus ulcer, washout and placement of wound VAC. 05/02: Patient had significant bleeding overnight, wound VAC leaked. Hemoglobin stable this morning, patient's bleeding from wound overnight was controlled with suture ligation. Wound was assessed by general surgeon, patient was transitioned back to red dry dressings daily. Plan: - Continue wound care - General Surgery consulted, appreciate recommendations - Continue to hold heparin - Milton 5 as needed - Skin barrier creams PRN - Referral to wound care # Normocytic normochromic anemia Multifactorial. Patient's baseline hemoglobin throughout the hospitalization has been in the range 9?11, patient did have some bleeding from wound VAC site on 05/02 which was controlled by suture ligation by general surgery. Had recurrent bleeding and eventually heparin drip was held. - Patient is a Worship, denies any blood transfusion/blood products - Patient will be given erythropoietin x 1 and ferumoxytol IV x 1 to improve underlying anemia. Was given another dose of ferumoxytol 05/06. - Will repeat CBC as needed # Right diastolic CHF # Stage III diastolic dysfunction # Fluid overload status, resolving Patient appears clinically dry at this point, will hold on diuresis at this time ECHO 04/29/2025: Normal LV size and function. Estimated EF of 65%. Grade III Diastolic Dysfunction. Right ventricle is dilated with mild RV dysfunction. RVSP 47mmHg. RAP 15mmHg. Severe biatrial dilation. Moderate to Severe AOV calcification with no stenosis Mild tricuspid regurgitation No pericardial effusion. Plan: - Continue strict daily body weight - Continue hemodialysis per nephrology - Daily weights - Strict I&O - Renal panel every 3 days - If keeps up urine output and GFR may be able to remove temporary dialysis catheter #Jejunostomy tube #Abdominal abscess Patient report said that there was an intra-abdominal abscess that have could have been from a perforated ulcer in the past See also note reviewed, mentions that patient likely had a marginal ulcer, but also was not seen on EGD without, currently patient has no abdominal tenderness and is totally asymptomatic. No current drain at this time Patient is status post laparoscopic J-tube placement and is currently on feeds Patient will continue to have this tube and will likely go to a long-term care facility with this until patient can swallow safely Plan: ? Completed antibiotic treatment. ? Monitor vitals closely #Aspiration Pneumonia, completed treatment #Obesity hypoventilation syndrome and obstructive sleep apnea #Dysphagia #Tracheostomy Patient was intubated and ventilated due to hypoxic respiratory failure, was unable to be extubated. Tracheostomy was placed. PEG tube was able to be placed, patient transferred to [facility] for laparoscopic J-tube placement, is now being transferred back after procedure successfully completed Plan: - Dietary consulted, recommendations appreciated - Respiratory therapy consulted - Blow-by during the day, mechanical ventilation at night as needed at baseline, currently on mechanical ventilation - Completed antibiotic treatment # Atrial fibrillation, by history [id number] score of 3 points indicating 3.2% risk of stroke per year HAS-BLED: 0 Currently rhythm controlled Plan: - Amiodarone 200 mg QDAY - Continue to hold metoprolol tartrate and amlodipine - Will hold heparin drip, risks and benefits discussed with patient, patient agreeable - Keep potassium and magnesium above 4 and 2 respectively - Telemetry #Right internal jugular venous thrombosis #Right arm swelling Continuing free water flushes, patient has gone multiple days of heparin drip since 04/01 Right upper extremity ultrasound May 04-shows right IJ thrombus Plan: ? Heparin drip is being held due to recurrent bleeding from sacral ulcer #Morbid obesity #DM2 A1C 7.6 on 03/05/2025 Patient has a BMI of 79.5->68.7 Plan: - ISS scale 2 - Hypoglycemia protocol ordered - 38 units of Lantus. #Health Maintenance Disposition: Telemetry DVT prophylaxis: Heparin drip being held due to significant bleeding. GI prophylaxis: Protonix Diet: 2Cal Tube Feeds with 30 cc/hour water flush CODE STATUS: Full code Patient plan of care was discussed with the attending physician, Dr. Mendoza. Elizabeth Lamas PGY1
[2025-05-07] MEDS: SOD HYPOCHLORITE 1/4 STR 473 ML BTL IRRIG ×2 (11:20→20:30)
[2025-05-07] MEDS: INSULIN LISPRO (AdmeLOG) 1 UNIT/0.01 ML UNIT SC (11:21)
[2025-05-07] MEDS: HYDROcodone/APAP 5/325 TABLET 1 TAB PO (18:42)
[2025-05-07] MEDS: Artificial Tears 225 DROP/15 ML BTL BOTH EYES (20:31)
[2025-05-08] VITALS (14 sets, daily range): BP systolic 99–126; BP diastolic 59–84; PULSE 58–122; RESP 14–68; TEMP 36.1–37.2; O2SAT 92–98; BMI 68.1
--- NOTE | 2025-05-08 09:22 | ESPR_ITS ---
Documentation for date of: 05/08/25 Subjective Subjective Interval history: Mr. Ortega is a 64-year-old male with a past medical history of type 2 diabetes mellitus, history of ATN, A-fib, hypertension, severe right-sided heart failure, HFpEF, severe BASIA, status post tracheostomy and jejunostomy, patient was previously admitted here for hypoxic respiratory failure requiring mechanical ventilation, was later transferred out to [facility] for jejunostomy tube placement, complicated by abdominal abscess, patient is now transferred back to [facility] for further management. The patient is noted to have pneumonia and acute hypoxic respiratory failure, requiring mechanical ventilation, nephrology was consulted as patient's renal function continues to worsen. Patient had previously required hemodialysis for ATN, but is a poor dialysis candidate outpatient. Patient noted to have significant fluid overload. Team gave 1 dose of Bumex with mild worsening of renal function. 500 cc bolus was given. Renal consultation requested for worsening renal failure in the setting of fluid overload. 05/02/2025 patient evaluated bedside, no active complaints, currently on blow-by, saturating well, overnight urine output 3 L, creatinine 3.4, will continue monitoring, reevaluate tomorrow if need for hemodialysis, primary team plans to discharge patient to LTAC, will keep dialysis catheter in place, if needed for future hemodialysis as patient had similar presentation with ATN during prior hospitalization requiring transient hemodialysis before being taken off. 05/03/2025, patient evaluated bedside, on mechanical ventilation, via trach collar, saturating well, urine output 2200 mL overnight, creatinine stable at 3.4, will hold off on hemodialysis, from nephrology standpoint patient can be discharged to LTAC, will keep dialysis catheter in place, if needed for future hemodialysis. Watchful observation of renal function and volume status. 05/04/2025, patient evaluated bedside, currently mechanical ventilation, patient had urine output 4900 mL overnight is a net negative fluid balance of -4300 mL. Repeat labs in the a.m. to assess for electrolytes and renal function. Continue holding hemodialysis, will reassess tomorrow. 05/06/2025, patient evaluated bedside, 1800 mL urine output overnight, sodium 139, potassium 4.7, carbon oxide 33.2, BUN 82 creatinine 3.2, EGFR improved to 21. We will discontinue dialysis catheter, patient currently CKD stage IV. IR dialysis cath removal ordered. 05/07/2025, patient evaluated bedside, on mechanical ventilation saturating 92%, 45% FiO2, urine output 2900 mL overnight, patient received Feraheme and Retacrit yesterday. Dialysis catheter was discontinued. 05/08/2025, patient evaluated bedside, currently mechanically ventilated via trach collar, no active discomfort, noticed remarkable improvement in swelling, wrinkling on upper extremities noted. The patient is pending placement to LTAC. Primary team will order labs for tomorrow, holding off on daily labs. Urine output 2400 mL overnight, net negative -1400. Exam Vital Signs Temp Pulse Resp BP Pulse Ox O2 Del Method O2 Flow Rate 98.9 F 112 H 15 126/65 96 Mechanical Ventilation 12 05/08/25 08:00 05/08/25 08:00 05/08/25 08:00 05/08/25 08:00 05/08/25 08:00 05/08/25 08:00 05/08/25 08:00 FiO2 45 05/08/25 08:00 Narrative Exam Physical Exam General: Awake and in no acute distress. Responsive, able to write his responses, follow commands, trach collar, saturating well. HEENT: Normocephalic, atraumatic, mucous membranes moist. Heart: Irregular rhythm, rate controlled, no murmurs. Possible ejection systolic murmur. Lungs: Bilateral coarse crackles. Abdomen: Soft, obese, nondistended, nontender, positive bowel sounds. ?No guarding or rebound tenderness. Neurologic: Alert and oriented x3, no gross neurological deficit, and patient able to move all 4 extremities. Extremities: 1+ bilateral lower extremity edema, 1+ edema right upper extremity. Skin: No rash or ecchymoses. Patient has sacral decubitus ulcer. Objective Labs 05/06/25 06:19 05/06/25 06:19 ABG Interpretation ABG results: 04/18/25 04/18/25 04/18/25 04:40 06:27 10:30 ABG pH 7.28 L 7.33 L 7.36 ABG pCO2 72 H* 67 H 61 H ABG pO2 132 H 60 L D 60 L ABG HCO3 34 H 35 H 34 H ABG O2 Saturation 100 H 93 93 ABG Base Excess 6 H 7 H 8 H 04/19/25 08:53 ABG pH 7.47 H D ABG pCO2 45 D ABG pO2 66 L ABG HCO3 33 H ABG O2 Saturation 96 ABG Base Excess 8 H Quality Measures Quality Measures VTE therapy Advance care planning discussed with:: patient Assessment & Plan Assessment Current Active Medications: Generic Name Dose Route Start Last Admin Trade Name Freq PRN Reason Stop Dose Admin Acetaminophen 650 mg 05/01/25 08:47 05/06/25 07:14 Acetaminophen 325 Mg Tablet PO 05/22/25 20:42 650 mg Q6HR PRN Administration pain 1-3 OR Fever >100.4 Hydrocodone Bitart/Acetaminophen 1 tab 05/06/25 08:23 05/07/25 18:42 Hydrocodone/Apap 5/325 Tablet PO 05/11/25 08:22 1 tab Q8HR PRN Administration PAIN SCALE 4-10(Mod-Sev Amiodarone HCl 200 mg 04/13/25 09:00 05/07/25 08:56 Amiodarone Hcl 200 Mg Tablet GT 05/13/25 08:59 200 mg QDAY KOURTNEY Administration Amlodipine Besylate 10 mg 04/13/25 09:00 05/04/25 09:39 Amlodipine Besylate 5 Mg Tablet GT 05/13/25 08:59 Not Given QDAY KOURTNEY Artificial Tears 0 drop 04/14/25 19:33 05/07/25 20:31 Artificial Tears 225 Drop/15 Ml Btl BOTH EYES 05/14/25 19:32 1 drop PRN PRN Administration TO KEEP EYES MOIST Ascorbic Acid 500 mg 04/17/25 21:00 05/07/25 20:30 Ascorbic Acid 250 Mg Tablet GT 05/17/25 20:59 500 mg BID KOURTNEY Administration Bumetanide 2 mg 04/21/25 09:00 05/04/25 05:31 Bumetanide Inj 0.25 Mg/Ml Vial 4 Ml IVP 05/21/25 08:59 2 mg BIDD KOURTNEY Administration Dextrose 25 ml 04/12/25 23:32 04/24/25 05:27 Dextrose 50%-Water Inj 50 Ml Syringe IV 05/12/25 23:31 25 ml Q15MIN PRN Administration BG 50-70 responsive npo pt Dextrose 50 ml 04/12/25 23:32 Dextrose 50%-Water Inj 50 Ml Syringe IV 05/12/25 23:31 Q15MIN PRN BG <50 OR BG <70 & pt unresponsive Glucagon 1 mg 04/12/25 23:32 Glucagon Inj 1 Mg Vial IM Q15MIN PRN BG <70, and no IV access Heparin Sodium (Porcine) 3,000 unit 04/24/25 13:46 04/29/25 11:04 Heparin Sod Inj 1000 Unit/Ml Vial 10 Ml INDWELLCAT 05/08/25 13:45 3,000 unit PRN PRN Administration DIALYSIS Albumin Human 25 gm in 100 mls @ 100 mls/min 04/24/25 11:52 Albuminar-25 Ivpb IV PRN PRN DIALYSIS Heparin Sodium/Dextrose 25,000 unit in 250 mls @ 22.085 mls/hr 04/29/25 16:30 05/02/25 13:27 Heparin In D5w Ivpb IV 05/13/25 16:29 11.8 units/kg/hr .[id number] KOURTNEY 24.086 mls/hr Administration Protocol 10.82 UNITS/KG/HR Insulin Glargine 38 unit 04/13/25 09:00 05/07/25 08:57 Insulin Glargine (Lantus) 5 Unit/0.05 Ml (Per 5 Units) SC 05/13/25 08:59 38 unit QDAY KOURTNEY Administration Insulin Human Lispro 0 unit 04/13/25 00:00 05/08/25 07:26 Insulin Lispro (Admelog) 1 Unit/0.01 Ml Unit SC 05/13/25 00:00 Not Given Q6HR [facility] Protocol Lansoprazole 30 mg 05/05/25 09:00 05/07/25 08:56 Lansoprazole 30 Mg Tab.Rap.Dr DUARTE 06/04/25 08:59 30 mg QDAY KOURTNEY Administration Ondansetron HCl 4 mg 04/12/25 23:27 04/17/25 05:28 Ondansetron Inj 2 Mg/Ml Inj 2 Ml IVP 05/12/25 23:26 4 mg Q6H PRN Administration NAUSEA OR VOMITING Protocol Pharmacy Consult 1 each 04/24/25 08:43 Pharmacy Renal Dose Adjustment 1 Ea XX 05/24/25 08:42 PRN PRN CONSULT Polyethylene Glycol 34 gm 05/02/25 09:00 05/07/25 08:55 Polyethylene Glycol 17 Gm Packet GT 06/01/25 08:59 34 gm QDAY KOURTNEY Administration Sennosides 2 tab 05/02/25 09:00 05/07/25 08:57 Senna Tablet GT 06/01/25 08:59 2 tab QDAY KOURTNEY Administration Protocol Sodium Hypochlorite 473 ml 05/06/25 21:00 05/07/25 20:30 Sod Hypochlorite 1/4 Str 473 Ml Btl IRRIG 06/05/25 20:59 473 ml BID KOURTNEY Administration Zinc Sulfate 220 mg 04/18/25 09:00 05/07/25 08:56 Zinc Sulfate 220 Mg Capsule GT 05/18/25 08:59 220 mg QDAY KOURTNEY Administration Plan 64-year-old male with past medical history of DM2, hypertension, A-fib, and Jehova's witness was admitted to the ICU on 02/27/2025 for shock and acute on chronic hypoxic respiratory failure. He is s/p laparoscopic J-tube placement from [facility]. #Acute kidney injury-- seems to be in Ischemic ATN #Hypermagnesemia, resolved Pending CMP Patient will likely need long-term dialysis as patient is currently in ischemic ATN Patient will need to go to LTAC as patient will need dialysis and mechanical ventilation Plan: ? Fuller catheter ? Avoid nephrotoxic agents ? Renally dose medicines ? Trend CMP and electrolytes ?Noted continued improvement in renal function after hemodialysis. Currently EGFR 21, CKD stage IV, patient has adequate urine output, noted improvement in anasarca. Will hold off on hemodialysis, discontinued tunneled dialysis catheter, IR cath removal ordered. ? Ordered Feraheme 550 Mg x 1 ? Ordered Retacrit 10,000 units x 1 ? Discontinued dialysis catheter 05/08/2025, patient evaluated bedside, currently mechanically ventilated via trach collar, no active discomfort, noticed remarkable improvement in swelling, wrinkling on upper extremities noted. The patient is pending placement to LTAC. Primary team will order labs for tomorrow, holding off on daily labs. Urine output 2400 mL overnight, net negative -1400. #Right diastolic CHF #Decubitus ulcer #Chronic back pain #Jejunostomy tube #Acute on Chronic Hypoxic Hypercapnic Respiratory Failure #Obesity hypoventilation syndrome and obstructive sleep apnea #Tracheostomy #Hx of A-fib #Right internal jugular venous thrombosis #Right arm swelling #Morbid obesity #DM2 Above handled by primary hospitalist team Patient seen and care discussed with my attending physician, Dr. Teressa Tobar pgy 2 Attending Provider Attestation/Addendum Patient seen and examined with resident physician Dr. Tobar. Note reviewed, agree with findings and recommendations. BUN/creatinine stable. Dialysis catheter was removed. ATN seems to be in recovery phase. Pending placement. Labs 3 times weekly with pediatric tubes due to his Religious status.
[2025-05-08] MEDS: ASCORBIC ACID 250 MG TABLET 500 MG GT ×2 (09:45→20:31)
[2025-05-08] MEDS: ZINC SULFATE 220 MG CAPSULE GT (09:46)
[2025-05-08] MEDS: AMIODARONE HCL 200 MG TABLET GT (09:46)
[2025-05-08] MEDS: INSULIN GLARGINE (Lantus) 5 UNIT/0.05 ML (PER 5 UNITS) 38 UNIT SC (09:52)
[2025-05-08] MEDS: LANSOPRAZOLE 30 MG TAB.RAP.DR GT (09:52)
[2025-05-08] MEDS: POLYETHYLENE GLYCOL 17 GM PACKET 34 GM GT (09:53)
[2025-05-08] MEDS: SOD HYPOCHLORITE 1/4 STR 473 ML BTL IRRIG ×2 (09:53→20:32)
[2025-05-08] MEDS: HYDROcodone/APAP 5/325 TABLET 1 TAB PO (11:45)
--- NOTE | 2025-05-08 12:36 | PC.SS ---
Follow up note: Stabilize hemoglobin. Pt ill have labs drawn tomorrow. Pt is possible d/c to LTAC or Subacute. Pt is currently not on dialysis.
--- NOTE | 2025-05-08 13:18 | ESPR_ITS ---
Documentation for date of: 05/08/25 Subjective Subjective Interval history: Patient seen and examined at bedside. Currently has no complaints. Patient had about 2.4 L urine output over the last 24 hours,, no acute complaints. Labs ordered for a.m., will follow, will follow iron panel in a.m. will consider iron transfusion as needed. Case discussed with patient and patient's family at bedside. Exam Vital Signs Temp Pulse Resp BP Pulse Ox O2 Del Method O2 Flow Rate 98.0 F 117 H 24 H 105/59 L 96 Mechanical Ventilation 12 05/08/25 12:05/08/25 12:00 05/08/25 12:05/08/25 12:00 05/08/25 12:00 05/08/25 12:05/08/25 08:00 FiO2 45 05/08/25 11:30 Narrative Exam Physical Exam General: Awake and in no acute distress. Tracheostomy site clean, on mechanical ventilation, nods to questions, responsive. HEENT: Normocephalic, atraumatic, mucous membranes moist. Heart: Irregular rhythm, rate controlled, no murmurs. Possible ejection systolic murmur. Lungs: Bilateral coarse crackles. Abdomen: Soft, obese, nondistended, nontender, positive bowel sounds. ?No guarding or rebound tenderness. Neurologic: Alert and oriented x3, no gross neurological deficit, and patient able to move all 4 extremities. Extremities: trace bilateral lower extremity edema, trace edema right upper extremity. Skin: No rash or ecchymoses. Patient has sacral decubitus ulcer. Objective Labs 05/06/25 06:19 05/06/25 06:19 ABG Interpretation ABG results: 04/18/25 04/18/25 04/18/25 04:40 06:27 10:30 ABG pH 7.28 L 7.33 L 7.36 ABG pCO2 72 H* 67 H 61 H ABG pO2 132 H 60 L D 60 L ABG HCO3 34 H 35 H 34 H ABG O2 Saturation 100 H 93 93 ABG Base Excess 6 H 7 H 8 H 04/19/25 08:53 ABG pH 7.47 H D ABG pCO2 45 D ABG pO2 66 L ABG HCO3 33 H ABG O2 Saturation 96 ABG Base Excess 8 H Quality Measures Quality Measures VTE therapy Advance care planning discussed with:: patient Assessment & Plan Assessment Current Active Medications: Generic Name Dose Route Start Last Admin Trade Name Malou PRN Reason Stop Dose Admin Acetaminophen 650 mg 05/01/25 08:47 05/06/25 07:14 Acetaminophen 325 Mg Tablet PO 05/22/25 20:42 650 mg Q6HR PRN Administration pain 1-3 OR Fever >100.4 Hydrocodone Bitart/Acetaminophen 1 tab 05/06/25 08:23 05/08/25 11:45 Hydrocodone/Apap 5/325 Tablet PO 05/11/25 08:22 1 tab Q8HR PRN Administration PAIN SCALE 4-10(Mod-Sev Amiodarone HCl 200 mg 04/13/25 09:00 05/08/25 09:46 Amiodarone Hcl 200 Mg Tablet GT 05/13/25 08:59 200 mg QDAY KOURTNEY Administration Amlodipine Besylate 10 mg 04/13/25 09:00 05/04/25 09:39 Amlodipine Besylate 5 Mg Tablet GT 05/13/25 08:59 Not Given QDAY KOURTNEY Artificial Tears 0 drop 04/14/25 19:33 05/07/25 20:31 Artificial Tears 225 Drop/15 Ml Btl BOTH EYES 05/14/25 19:32 1 drop PRN PRN Administration TO KEEP EYES MOIST Ascorbic Acid 500 mg 04/17/25 21:00 05/08/25 09:45 Ascorbic Acid 250 Mg Tablet GT 05/17/25 20:59 500 mg BID KOURTNEY Administration Bumetanide 2 mg 04/21/25 09:00 05/04/25 05:31 Bumetanide Inj 0.25 Mg/Ml Vial 4 Ml IVP 05/21/25 08:59 2 mg BIDD KOURTNEY Administration Dextrose 25 ml 04/12/25 23:32 04/24/25 05:27 Dextrose 50%-Water Inj 50 Ml Syringe IV 05/12/25 23:31 25 ml Q15MIN PRN Administration BG 50-70 responsive npo pt Dextrose 50 ml 04/12/25 23:32 Dextrose 50%-Water Inj 50 Ml Syringe IV 05/12/25 23:31 Q15MIN PRN BG <50 OR BG <70 & pt unresponsive Glucagon 1 mg 04/12/25 23:32 Glucagon Inj 1 Mg Vial IM Q15MIN PRN BG <70, and no IV access Heparin Sodium (Porcine) 3,000 unit 04/24/25 13:46 04/29/25 11:04 Heparin Sod Inj 1000 Unit/Ml Vial 10 Ml INDWELLCAT 05/08/25 13:45 3,000 unit PRN PRN Administration DIALYSIS Albumin Human 25 gm in 100 mls @ 100 mls/min 04/24/25 11:52 Albuminar-25 Ivpb IV PRN PRN DIALYSIS Heparin Sodium/Dextrose 25,000 unit in 250 mls @ 22.085 mls/hr 04/29/25 16:30 05/02/25 13:27 Heparin In D5w Ivpb IV 05/13/25 16:29 11.8 units/kg/hr .[id number] KOURTNEY 24.086 mls/hr Administration Protocol 10.82 UNITS/KG/HR Insulin Glargine 38 unit 04/13/25 09:00 05/08/25 09:52 Insulin Glargine (Lantus) 5 Unit/0.05 Ml (Per 5 Units) SC 05/13/25 08:59 38 unit QDAY KOURTNEY Administration Insulin Human Lispro 0 unit 04/13/25 00:00 05/08/25 11:48 Insulin Lispro (Admelog) 1 Unit/0.01 Ml Unit SC 05/13/25 00:00 Not Given Q6HR KOURTNEY Protocol Lansoprazole 30 mg 05/05/25 09:00 05/08/25 09:52 Lansoprazole 30 Mg Tab. GT 06/04/25 08:59 30 mg QDAY KOURTNEY Administration Ondansetron HCl 4 mg 04/12/25 23:27 04/17/25 05:28 Ondansetron Inj 2 Mg/Ml Inj 2 Ml IVP 05/12/25 23:26 4 mg Q6H PRN Administration NAUSEA OR VOMITING Protocol Pharmacy Consult 1 each 04/24/25 08:43 Pharmacy Renal Dose Adjustment 1 Ea XX 05/24/25 08:42 PRN PRN CONSULT Polyethylene Glycol 34 gm 05/02/25 09:00 05/08/25 09:53 Polyethylene Glycol 17 Gm Packet GT 06/01/25 08:59 34 gm QDAY KOURTNEY Administration Sennosides 2 tab 05/02/25 09:00 05/08/25 09:52 Senna Tablet GT 06/01/25 08:59 2 tab QDAY KOURTNEY Administration Protocol Sodium Hypochlorite 473 ml 05/06/25 21:00 05/08/25 09:53 Sod Hypochlorite 11/17 Str 473 Ml Btl IRRIG 06/05/25 20:59 473 ml BID KOURTNEY Administration Zinc Sulfate 220 mg 04/18/25 09:00 05/08/25 09:46 Zinc Sulfate 220 Mg Capsule GT 05/18/25 08:59 220 mg QDAY KOURTNEY Administration Plan Assessment 64-year-old male with past medical history of DM2, hypertension, A-fib, and Jehova's witness was admitted to the ICU on 02/27/2025 for shock and acute hypoxic respiratory failure. He is s/p laparoscopic J-tube placement from [facility]. #Decubitus ulcer status post excisional debridement of sacral decubitus ulcer, washout and placement of wound VAC, 04/29 #Chronic back pain Not requiring surgical intervention at this time Unstageable sacral ulcer Debridement bedside on 04/17/2025 Wound reassessed by wound care team and general surgeon on 04/24/202504/29: excisional debridement of sacral decubitus ulcer, washout and placement of wound VAC. 05/02: Patient had significant bleeding overnight, wound VAC leaked. Hemoglobin stable this morning, patient's bleeding from wound overnight was controlled with suture ligation. Wound was assessed by general surgeon, patient was transitioned back to red dry dressings daily. Plan: - Continue wound care - General Surgery consulted, appreciate recommendations - Continue to hold heparin - [place] 5 as needed - Skin barrier creams PRN - Referral to wound care #Acute kidney injury-suspicion of ischemic ATN?resolving #Fluid overload, improving #Acute on chronic hypoxic respiratory failure, improving #Started on hemodialysis 04/24/2025, status post temporary dialysis catheter placement Patient looks clinically hypervolemic at this time 04/20 ? Attempt was made to place Fuller catheter however unable to pass catheter due to significant resistance and attempt was terminated. Discussed with nursing about possibility of weighing briefs daily. Patient had temporary hemodialysis catheter placed 04/24, receiving dialysis had 1 L removed on 04/24, 2 L on 04/25, 2.14 on 04/26, 2.1 L on 04/29 Plan: -Continue to hold Bumex. -Continue to hold heparin GGT -Monitor urine output -Avoid nephrotoxic agents -Renally dose medication # Normocytic normochromic anemia Multifactorial. Patient's baseline hemoglobin throughout the hospitalization has been in the range 9?11, patient did have some bleeding from wound VAC site on 05/02 which was controlled by suture ligation by general surgery. Had recurrent bleeding and eventually heparin drip was held. - Patient is a Protestant, denies any blood transfusion/blood products - Patient will be given erythropoietin x 1 and ferumoxytol IV x 1 to improve underlying anemia. Was given another dose of ferumoxytol 05/06. - Will repeat CBC as needed # Right diastolic CHF # Stage III diastolic dysfunction # Fluid overload status, resolving Patient appears clinically dry at this point, will hold on diuresis at this time ECHO 04/29/2025: Normal LV size and function. Estimated EF of 65%. Grade III Diastolic Dysfunction. Right ventricle is dilated with mild RV dysfunction. RVSP 47mmHg. RAP 15mmHg. Severe biatrial dilation. Moderate to Severe AOV calcification with no stenosis Mild tricuspid regurgitation No pericardial effusion. Plan: - Continue strict daily body weight - Continue hemodialysis per nephrology - Daily weights - Strict I&O - Renal panel every 3 days - If keeps up urine output and GFR may be able to remove temporary dialysis catheter #Jejunostomy tube #Abdominal abscess Patient report said that there was an intra-abdominal abscess that have could have been from a perforated ulcer in the past See also note reviewed, mentions that patient likely had a marginal ulcer, but also was not seen on EGD without, currently patient has no abdominal tenderness and is totally asymptomatic. No current drain at this time Patient is status post laparoscopic J-tube placement and is currently on feeds Patient will continue to have this tube and will likely go to a long-term care facility with this until patient can swallow safely Plan: ? Completed antibiotic treatment. ? Monitor vitals closely #Aspiration Pneumonia, completed treatment #Obesity hypoventilation syndrome and obstructive sleep apnea #Dysphagia #Tracheostomy Patient was intubated and ventilated due to hypoxic respiratory failure, was unable to be extubated. Tracheostomy was placed. PEG tube was able to be placed, patient transferred to [facility] for laparoscopic J-tube placement, is now being transferred back after procedure successfully completed Plan: - Dietary consulted, recommendations appreciated - Respiratory therapy consulted - Blow-by during the day, mechanical ventilation at night as needed at baseline, currently on mechanical ventilation - Completed antibiotic treatment # Atrial fibrillation, by history [id number] score of 3 points indicating 3.2% risk of stroke per year HAS-BLED: 0 Currently rhythm controlled Plan: - Amiodarone 200 mg QDAY - Continue to hold metoprolol tartrate and amlodipine - Will hold heparin drip, risks and benefits discussed with patient, patient agreeable - Keep potassium and magnesium above 4 and 2 respectively - Telemetry #Right internal jugular venous thrombosis #Right arm swelling Continuing free water flushes, patient has gone multiple days of heparin drip since 04/01 Right upper extremity ultrasound May 04-shows right IJ thrombus Plan: ? Heparin drip is being held due to recurrent bleeding from sacral ulcer #Morbid obesity #DM2 A1C 7.6 on 03/05/2025 Patient has a BMI of 79.5->68.7 Plan: - ISS scale 2 - Hypoglycemia protocol ordered - 38 units of Lantus. #Health Maintenance Disposition: Telemetry DVT prophylaxis: Heparin drip being held due to significant bleeding. GI prophylaxis: Protonix Diet: 2Cal Tube Feeds with 30 cc/hour water flush CODE STATUS: Full code Patient plan of care was discussed with the attending physician, Dr. Turcios. Elizabeth Lamas PGY1 Attending Provider Attestation/Addendum I have discussed and was present for the essential components of the history, physical examination, diagnosis, and treatment plan with the resident. I agree with the patient's care as documented by the resident and amended herein by me. Arnol Turcios DO. Although this document has been carefully reviewed, there may still be some phonetic and other typographical errors. These errors are purely grammatical due to imperfections in the software program and should not be construed in any way to compromise the substance of the patient's medical care during this visit.
[2025-05-08] MEDS: INSULIN LISPRO (AdmeLOG) 1 UNIT/0.01 ML UNIT SC ×2 (18:01→23:23)
[2025-05-09] VITALS (98 sets, daily range): BP systolic 75–169; BP diastolic 46–86; PULSE 33–160; RESP 0–35; TEMP 35.9–37.3; O2SAT 90–100
[2025-05-09 05:51] LABS: Basophils # (Auto) 0.1 Thou/mm3 (0.0-0.2); Basophils % (Auto) 0 % (0-2.5); Eosinophils # (Auto) 0.1 Thou/mm3 (0.0-0.5); Eosinophils % (Auto) 0 % (0-10); Hematocrit 23.8 % (41.0-53.0); Immature Granulocytes Auto 0.21 Thou/mm3 (0.00-0.00); Lymphocytes # (Auto) 3.9 Thou/mm3 (1.0-4.8); Lymphocytes % (Auto) 16 % (10-50); Mean Corpuscular HGB Conc 31.5 g/dl (31.0-37.0); Mean Corpuscular Hemoglobin 29.1 pg (25.0-35.0); Mean Corpuscular Volume 92 fL (80-100); Monocytes # (Auto) 2.7 Thou/mm3 (0.0-0.8); Monocytes % (Auto) 11 % (0-12); Neutrophils # (Auto) 17.7 Thou/mm3 (1.8-7.7); Neutrophils % (Auto) 72 % (37-80); Nucleated Red Blood Cell # 0.00 Thou/mm3 (0.00-0.00); Nucleated Red Blood Cell % 0 /100 WBC (0); Platelet Count 355 Thou/mm3 (140-440); RDW Standard Deviation 62.4 fL (35.1-43.9); Red Blood Count 2.58 Miln/mm3 (4.50-5.90); White Blood Count 24.6 Thou/mm3 (3.8-10.6)
[2025-05-09 05:52] LABS: Hemoglobin 7.5 g/dL (13.5-16.0)
[2025-05-09 06:22] LABS: Ferritin 595 ng/mL (10.5-307.3); Iron 68 mcg/dL (65-175); Percent Iron Saturation 36 % (20-55); Total Iron Binding Capacity 185 mcg/dL (250-425); Unsaturated Iron Binding 117 (225-295)
[2025-05-09 07:16] LABS: Alanine Aminotransferase < 7 U/L (10-49); Albumin, Serum 3.3 gm/dL (3.4-4.8); Albumin/Globulin Ratio 1.2 (1.2-2.2); Alkaline Phosphatase 167 U/L (46-116); Anion Gap 10 (7-16); Aspartate Amino Transferase 16 U/L (0-34); BUN/Creatinine Ratio 36 Ratio (12-20); Bilirubin,Total 0.4 mg/dL (0.3-1.2); Calcium 9.0 mg/dL (8.3-10.6); Calcium (Corrected) 9.6 mg/dL (8.5-10.1); Carbon Dioxide 32.9 mMol/L (20.0-31.0); Chloride 99 mMol/L (98-107); Creatinine (Component) 3.0 mg/dL (0.6-1.3); Estimated Creatinine Clearance 40.7 mL/min (>60); Globulin 2.7 gm/dL (2.3-3.5); Glucose 148 mg/dL (74-106); Magnesium 2.7 mg/dL (1.6-2.6); Osmolality,Calculated 319 (275-295); Phosphorous 3.8 mg/dL (2.4-5.1); Potassium 4.7 mMol/L (3.4-5.1); Sodium 142 mMol/L (136-145); Total Protein 6.0 gm/dL (5.7-8.2); eGFR 22 See Note
[2025-05-09 07:39] LABS: Blood Urea Nitrogen 107 mg/dL (9-23)
--- NOTE | 2025-05-09 09:03 | PD.RESPRO ---
Documentation for date of: 05/09/25 Subjective Subjective Interval history: Mr. Ortega is a 64-year-old male with a past medical history of type 2 diabetes mellitus, history of ATN, A-fib, hypertension, severe right-sided heart failure, HFpEF, severe BASIA, status post tracheostomy and jejunostomy, patient was previously admitted here for hypoxic respiratory failure requiring mechanical ventilation, was later transferred out to [facility] for jejunostomy tube placement, complicated by abdominal abscess, patient is now transferred back to [facility] for further management. The patient is noted to have pneumonia and acute hypoxic respiratory failure, requiring mechanical ventilation, nephrology was consulted as patient's renal function continues to worsen. Patient had previously required hemodialysis for ATN, but is a poor dialysis candidate outpatient. Patient noted to have significant fluid overload. Team gave 1 dose of Bumex with mild worsening of renal function. 500 cc bolus was given. Renal consultation requested for worsening renal failure in the setting of fluid overload. 05/02/2025 patient evaluated bedside, no active complaints, currently on blow-by, saturating well, overnight urine output 3 L, creatinine 3.4, will continue monitoring, reevaluate tomorrow if need for hemodialysis, primary team plans to discharge patient to LTAC, will keep dialysis catheter in place, if needed for future hemodialysis as patient had similar presentation with ATN during prior hospitalization requiring transient hemodialysis before being taken off. 05/03/2025, patient evaluated bedside, on mechanical ventilation, via trach collar, saturating well, urine output 2200 mL overnight, creatinine stable at 3.4, will hold off on hemodialysis, from nephrology standpoint patient can be discharged to LTAC, will keep dialysis catheter in place, if needed for future hemodialysis. Watchful observation of renal function and volume status. 05/04/2025, patient evaluated bedside, currently mechanical ventilation, patient had urine output 4900 mL overnight is a net negative fluid balance of -4300 mL. Repeat labs in the a.m. to assess for electrolytes and renal function. Continue holding hemodialysis, will reassess tomorrow. 05/06/2025, patient evaluated bedside, 1800 mL urine output overnight, sodium 139, potassium 4.7, carbon oxide 33.2, BUN 82 creatinine 3.2, EGFR improved to 21. We will discontinue dialysis catheter, patient currently CKD stage IV. IR dialysis cath removal ordered. 05/07/2025, patient evaluated bedside, on mechanical ventilation saturating 92%, 45% FiO2, urine output 2900 mL overnight, patient received Feraheme and Retacrit yesterday. Dialysis catheter was discontinued. 05/08/2025, patient evaluated bedside, currently mechanically ventilated via trach collar, no active discomfort, noticed remarkable improvement in swelling, wrinkling on upper extremities noted. The patient is pending placement to LTAC. Primary team will order labs for tomorrow, holding off on daily labs. Urine output 2400 mL overnight, net negative -1400. 05/09/2025 patient evaluated bedside, reported no active discomfort, mechanically ventilated via trach collar, swelling continues to improve, but noticed decreasing urine output urine output over 1130 mL overnight, also noted elevated BUN 107, creatinine 3.0, sodium 142, potassium 4.7. Concern for dehydration, will increase free water flushes to 70 cc/h. Hemoglobin 7.5, recommended repeating another dose of Feraheme x 1, as patient is a Mosque Exam Vital Signs Temp Pulse Resp BP Pulse Ox O2 Del Method O2 Flow Rate 96.9 F 93 19 97/72 98 Mechanical Ventilation 12 05/09/25 04:00 05/09/25 06:37 05/09/25 04:00 05/09/25 04:00 05/09/25 06:37 05/09/25 04:00 05/08/25 08:00 FiO2 45 05/09/25 06:37 Narrative Exam Physical Exam General: Awake and in no acute distress. Responsive, able to write his responses, follow commands, trach collar, saturating well. HEENT: Normocephalic, atraumatic, mucous membranes moist. Heart: Irregular rhythm, rate controlled, no murmurs. Possible ejection systolic murmur. Lungs: Bilateral coarse crackles. Abdomen: Soft, obese, nondistended, nontender, positive bowel sounds. ?No guarding or rebound tenderness. Neurologic: Alert and oriented x3, no gross neurological deficit, and patient able to move all 4 extremities. Extremities: 1+ bilateral lower extremity edema, 1+ edema right upper extremity. Skin: No rash or ecchymoses. Patient has sacral decubitus ulcer. Objective Labs 05/09/25 11:30 05/09/25 11:30 Labs: Laboratory Results - last 24 hr 05/09/25 04:21 WBC 24.6 H D RBC 2.58 L Hgb 7.5 L Hct 23.8 L MCV 92 MCH 29.1 MCHC 31.5 RDW Std Deviation 62.4 H Plt Count 355 Neut % (Auto) 72 Lymph % (Auto) 16 [place] % (Auto) 11 Eos % (Auto) 0 Baso % (Auto) 0 Neut # (Auto) 17.7 H Lymph # (Auto) 3.9 [place] # (Auto) 2.7 H Eos # (Auto) 0.1 Baso # (Auto) 0.1 Immature Gran # (Auto) 0.21 H Absolute Nucleated RBC 0.00 Immature Gran % 1 H Nucleated RBC % 0 Sodium 142 Potassium 4.7 Chloride 99 Carbon Dioxide 32.9 H Anion Gap 10 BUN 107 H* Creatinine 3.0 H Estim Creat Clear Calc 40.7 L eGFR 22 L BUN/Creatinine Ratio 36 H Glucose 148 H Calculated Osmolality 319 H Calcium 9.0 Corrected Calcium 9.6 Phosphorus 3.8 Magnesium 2.7 H Iron 68 TIBC 185 L Iron Saturation 36 Unsat Iron Binding 117 L Ferritin 595 H Total Bilirubin 0.4 AST 16 ALT < 7 L Alkaline Phosphatase 167 H D Total Protein 6.0 Albumin 3.3 L Globulin 2.7 Albumin/Globulin Ratio 1.2 Procalcitonin Cancelled ABG Interpretation ABG results: 04/18/25 04/18/25 04/18/25 04:40 06:27 10:30 ABG pH 7.28 L 7.33 L 7.36 ABG pCO2 72 H* 67 H 61 H ABG pO2 132 H 60 L D 60 L ABG HCO3 34 H 35 H 34 H ABG O2 Saturation 100 H 93 93 ABG Base Excess 6 H 7 H 8 H 04/19/25 08:53 ABG pH 7.47 H D ABG pCO2 45 D ABG pO2 66 L ABG HCO3 33 H ABG O2 Saturation 96 ABG Base Excess 8 H Quality Measures Quality Measures VTE therapy Advance care planning discussed with:: patient Assessment & Plan Assessment Current Active Medications: Generic Name Dose Route Start Last Admin Trade Name Freq PRN Reason Stop Dose Admin Acetaminophen 650 mg 05/01/25 08:47 05/06/25 07:14 Acetaminophen 325 Mg Tablet PO 05/22/25 20:42 650 mg Q6HR PRN Administration pain 1-3 OR Fever >100.4 Hydrocodone Bitart/Acetaminophen 1 tab 05/06/25 08:23 05/08/25 11:45 Hydrocodone/Apap 5/325 Tablet PO 05/11/25 08:22 1 tab Q8HR PRN Administration PAIN SCALE 4-10(Mod-Sev Amiodarone HCl 200 mg 04/13/25 09:00 05/08/25 09:46 Amiodarone Hcl 200 Mg Tablet GT 05/13/25 08:59 200 mg QDAY KOURTNEY Administration Amlodipine Besylate 10 mg 04/13/25 09:00 05/04/25 09:39 Amlodipine Besylate 5 Mg Tablet GT 05/13/25 08:59 Not Given QDAY KOURTNEY Artificial Tears 0 drop 04/14/25 19:33 05/07/25 20:31 Artificial Tears 225 Drop/15 Ml Btl BOTH EYES 05/14/25 19:32 1 drop PRN PRN Administration TO KEEP EYES MOIST Ascorbic Acid 500 mg 04/17/25 21:00 05/08/25 20:31 Ascorbic Acid 250 Mg Tablet GT 05/17/25 20:59 500 mg BID KOURTNEY Administration Bumetanide 2 mg 04/21/25 09:00 05/04/25 05:31 Bumetanide Inj 0.25 Mg/Ml Vial 4 Ml IVP 05/21/25 08:59 2 mg BIDD KOURTNEY Administration Dextrose 25 ml 04/12/25 23:32 04/24/25 05:27 Dextrose 50%-Water Inj 50 Ml Syringe IV 05/12/25 23:31 25 ml Q15MIN PRN Administration BG 50-70 responsive npo pt Dextrose 50 ml 04/12/25 23:32 Dextrose 50%-Water Inj 50 Ml Syringe IV 05/12/25 23:31 Q15MIN PRN BG <50 OR BG <70 & pt unresponsive Glucagon 1 mg 04/12/25 23:32 Glucagon Inj 1 Mg Vial IM Q15MIN PRN BG <70, and no IV access Albumin Human 25 gm in 100 mls @ 100 mls/min 04/24/25 11:52 Albuminar-25 Ivpb IV PRN PRN DIALYSIS Heparin Sodium/Dextrose 25,000 unit in 250 mls @ 22.085 mls/hr 04/29/25 16:30 05/02/25 13:27 Heparin In D5w Ivpb IV 05/13/25 16:29 11.8 units/kg/hr .[id number] KOURTNEY 24.086 mls/hr Administration Protocol 10.82 UNITS/KG/HR Insulin Glargine 38 unit 04/13/25 09:00 05/08/25 09:52 Insulin Glargine (Lantus) 5 Unit/0.05 Ml (Per 5 Units) SC 05/13/25 08:59 38 unit QDAY KOURTNEY Administration Insulin Human Lispro 0 unit 04/13/25 00:00 05/09/25 05:36 Insulin Lispro (Admelog) 1 Unit/0.01 Ml Unit SC 05/13/25 00:00 Not Given Q6HR KOURTNEY Protocol Lansoprazole 30 mg 05/05/25 09:00 05/08/25 09:52 Lansoprazole 30 Mg Tab. GT 06/04/25 08:59 30 mg QDAY KOURTNEY Administration Ondansetron HCl 4 mg 04/12/25 23:27 04/17/25 05:28 Ondansetron Inj 2 Mg/Ml Inj 2 Ml IVP 05/12/25 23:26 4 mg Q6H PRN Administration NAUSEA OR VOMITING Protocol Pharmacy Consult 1 each 04/24/25 08:43 Pharmacy Renal Dose Adjustment 1 Ea XX 05/24/25 08:42 PRN PRN CONSULT Polyethylene Glycol 34 gm 05/02/25 09:00 05/08/25 09:53 Polyethylene Glycol 17 Gm Packet GT 06/01/25 08:59 34 gm QDAY KOURTNEY Administration Sennosides 2 tab 05/02/25 09:00 05/08/25 09:52 Senna Tablet GT 06/01/25 08:59 2 tab QDAY KOURTNEY Administration Protocol Sodium Hypochlorite 473 ml 05/06/25 21:00 05/08/25 20:32 Sod Hypochlorite 1/4 Str 473 Ml Btl IRRIG 06/05/25 20:59 473 ml BID KOURTNEY Administration Zinc Sulfate 220 mg 04/18/25 09:00 05/08/25 09:46 Zinc Sulfate 220 Mg Capsule GT 05/18/25 08:59 220 mg QDAY KOURTNEY Administration Plan 64-year-old male with past medical history of DM2, hypertension, A-fib, and Jehova's witness was admitted to the ICU on 02/27/2025 for shock and acute on chronic hypoxic respiratory failure. He is s/p laparoscopic J-tube placement from [facility]. #Acute kidney injury-- seems to be in Ischemic ATN #Hypermagnesemia, resolved Pending CMP Patient will likely need long-term dialysis as patient is currently in ischemic ATN Patient will need to go to LTAC as patient will need dialysis and mechanical ventilation Plan: ? Fuller catheter ? Avoid nephrotoxic agents ? Renally dose medicines ? Trend CMP and electrolytes ?Noted continued improvement in renal function after hemodialysis. Currently EGFR 21, CKD stage IV, patient has adequate urine output, noted improvement in anasarca. Will hold off on hemodialysis, discontinued tunneled dialysis catheter, IR cath removal ordered. ? Ordered Feraheme 550 Mg x 1 ? Ordered Retacrit 10,000 units x 1 ? Discontinued dialysis catheter 05/08/2025, patient evaluated bedside, currently mechanically ventilated via trach collar, no active discomfort, noticed remarkable improvement in swelling, wrinkling on upper extremities noted. The patient is pending placement to LTAC. Primary team will order labs for tomorrow, holding off on daily labs. Urine output 2400 mL overnight, net negative -1400. 05/09/2025 patient evaluated bedside, reported no active discomfort, mechanically ventilated via trach collar, swelling continues to improve, but noticed decreasing urine output urine output over 1130 mL overnight, also noted elevated BUN 107, creatinine 3.0, sodium 142, potassium 4.7. Concern for dehydration, will increase free water flushes to 70 cc/h. Hemoglobin 7.5, recommended repeating another dose of Feraheme x 1, as patient is a Mosque #Right diastolic CHF #Decubitus ulcer #Chronic back pain #Jejunostomy tube #Acute on Chronic Hypoxic Hypercapnic Respiratory Failure #Obesity hypoventilation syndrome and obstructive sleep apnea #Tracheostomy #Hx of A-fib #Right internal jugular venous thrombosis #Right arm swelling #Morbid obesity #DM2 Above handled by primary hospitalist team Patient seen and care discussed with my attending physician, Dr. Teressa Tobar pgy 2 Attending Provider Attestation/Addendum Patient seen and examined with resident physician Dr. Tobar. Note reviewed, agree with findings and recommendations. BUN/creatinine stable. Dialysis catheter was removed. ATN seems to be in recovery phase. Pending placement. Creatinine 3.2. Edema improved. Labs 3 times weekly with pediatric tubes due to his Mosque status.
[2025-05-09 09:04] LABS: Procalcitonin 2.97 ng/ml (0.0-0.49)
[2025-05-09] MEDS: INSULIN GLARGINE (Lantus) 5 UNIT/0.05 ML (PER 5 UNITS) 38 UNIT SC (09:15)
[2025-05-09] MEDS: LANSOPRAZOLE 30 MG TAB.RAP.DR GT (09:30)
[2025-05-09] MEDS: ASCORBIC ACID 250 MG TABLET 500 MG GT ×2 (09:30→20:56)
[2025-05-09] MEDS: AMIODARONE HCL 200 MG TABLET GT (09:30)
[2025-05-09] MEDS: ZINC SULFATE 220 MG CAPSULE GT (09:30)
[2025-05-09] MEDS: POLYETHYLENE GLYCOL 17 GM PACKET 34 GM GT (10:33)
[2025-05-09] MEDS: SOD HYPOCHLORITE 1/4 STR 473 ML BTL IRRIG ×2 (10:51→20:57)
--- NOTE | 2025-05-09 11:05 | XR_ITS ---
Examination: AP chest single view TECHNIQUE: AP portable supine chest single view Date and time: May 09, 2025 1134 hours Comparison April 29, 2025 INDICATIONS: Hypoxic respiratory failure bradycardia today. FINDINGS: Tracheostomy tube tip 5.5 cm above nunu Prominent vascular congestion Moderate to large right pleural effusion IMPRESSION: Mild heart failure Moderate to large right pleural effusion
[2025-05-09] MEDS: CALCIUM CHLORIDE 10% INJ 10 ML SYRG IV (11:06)
[2025-05-09] MEDS: ATROPINE SULF INJ 0.1 MG/ML SYR 10 ML 1 MG IV (11:07)
[2025-05-09] MEDS: ATROPINE SULF INJ 0.1 MG/ML SYR 10 ML 1 MG IVP (11:14)
[2025-05-09] MEDS: fentaNYL CIT INJ 50 mCg/ML AMP 2ML 100 MCG IM (11:21)
[2025-05-09] MEDS: MIDAZOLAM INJ 1 MG/ML VIAL 2 ML 4 MG IVP ×2 (11:34→12:38)
--- NOTE | 2025-05-09 11:50 | PD.RESPRO ---
Documentation for date of: 05/09/25 Subjective Subjective Interval history: Patient seen and examined at bedside. Had no current complaints. Patient's labs reviewed was noted to have elevated white count compared to yesterday, elevated Pro-Sánchez. Otherwise patient had no fevers. Hence decision was made to repeat labs in a.m. prior to initiation of any antibiotics. Free water flushes increased per nephrology recommendations, patient had significantly elevated BUN, creatinine improving. Iron panel was obtained this morning, will consider IV iron x 1 Case will be discussed with respiratory therapist to transition patient to blow-by during day if possible. Exam Vital Signs Temp Pulse Resp BP Pulse Ox O2 Del Method O2 Flow Rate 97.3 F 98 16 104/80 95 Mechanical Ventilation 12 05/09/25 08:00 05/09/25 09:30 05/09/25 08:00 05/09/25 09:30 05/09/25 08:00 05/09/25 08:00 05/09/25 08:00 FiO2 45 05/09/25 08:00 Narrative Exam Physical Exam General: Awake and in no acute distress. Responsive, able to write his responses, follow commands, trach collar, saturating well. HEENT: Normocephalic, atraumatic, mucous membranes moist. Heart: Irregular rhythm, rate controlled, no murmurs. Possible ejection systolic murmur. Lungs: Bilateral coarse crackles. Abdomen: Soft, obese, nondistended, nontender, positive bowel sounds. ?No guarding or rebound tenderness. Neurologic: Alert and oriented x3, no gross neurological deficit, and patient able to move all 4 extremities. Extremities: Trace bilateral lower extremity edema, trace edema right upper extremity. Skin: No rash or ecchymoses. Patient has sacral decubitus ulcer. Objective Labs 05/10/25 04:27 05/10/25 15:10 Labs: Laboratory Results - last 24 hr 05/09/25 05/09/25 04:21 04:21 WBC 24.6 H D RBC 2.58 L Hgb 7.5 L Hct 23.8 L MCV 92 MCH 29.1 MCHC 31.5 RDW Std Deviation 62.4 H Plt Count 355 Neut % (Auto) 72 Lymph % (Auto) 16 [place] % (Auto) 11 Eos % (Auto) 0 Baso % (Auto) 0 Neut # (Auto) 17.7 H Lymph # (Auto) 3.9 [place] # (Auto) 2.7 H Eos # (Auto) 0.1 Baso # (Auto) 0.1 Immature Gran # (Auto) 0.21 H Absolute Nucleated RBC 0.00 Immature Gran % 1 H Nucleated RBC % 0 Sodium 142 Potassium 4.7 Chloride 99 Carbon Dioxide 32.9 H Anion Gap 10 BUN 107 H* Creatinine 3.0 H Estim Creat Clear Calc 40.7 L eGFR 22 L BUN/Creatinine Ratio 36 H Glucose 148 H Calculated Osmolality 319 H Calcium 9.0 Corrected Calcium 9.6 Phosphorus 3.8 Magnesium 2.7 H Iron 68 TIBC 185 L Iron Saturation 36 Unsat Iron Binding 117 L Ferritin 595 H Total Bilirubin 0.4 AST 16 ALT < 7 L Alkaline Phosphatase 167 H D Total Protein 6.0 Albumin 3.3 L Globulin 2.7 Albumin/Globulin Ratio 1.2 Procalcitonin Cancelled 2.97 H ABG Interpretation ABG results: 04/18/25 04/18/25 04/18/25 04:40 06:27 10:30 ABG pH 7.28 L 7.33 L 7.36 ABG pCO2 72 H* 67 H 61 H ABG pO2 132 H 60 L D 60 L ABG HCO3 34 H 35 H 34 H ABG O2 Saturation 100 H 93 93 ABG Base Excess 6 H 7 H 8 H 04/19/25 08:53 ABG pH 7.47 H D ABG pCO2 45 D ABG pO2 66 L ABG HCO3 33 H ABG O2 Saturation 96 ABG Base Excess 8 H Quality Measures Quality Measures VTE therapy Advance care planning discussed with:: patient Assessment & Plan Assessment Current Active Medications: Generic Name Dose Route Start Last Admin Trade Name Freq PRN Reason Stop Dose Admin Acetaminophen 650 mg 05/01/25 08:47 05/06/25 07:14 Acetaminophen 325 Mg Tablet PO 05/22/25 20:42 650 mg Q6HR PRN Administration pain 1-3 OR Fever >100.4 Hydrocodone Bitart/Acetaminophen 1 tab 05/06/25 08:23 05/08/25 11:45 Hydrocodone/Apap 5/325 Tablet PO 05/11/25 08:22 1 tab Q8HR PRN Administration PAIN SCALE 4-10(Mod-Sev Amiodarone HCl 200 mg 04/13/25 09:00 05/09/25 09:30 Amiodarone Hcl 200 Mg Tablet GT 05/13/25 08:59 200 mg QDAY KOURTNEY Administration Amlodipine Besylate 10 mg 04/13/25 09:00 05/04/25 09:39 Amlodipine Besylate 5 Mg Tablet GT 05/13/25 08:59 Not Given QDAY KOURTNEY Artificial Tears 0 drop 04/14/25 19:33 05/07/25 20:31 Artificial Tears 225 Drop/15 Ml Btl BOTH EYES 05/14/25 19:32 1 drop PRN PRN Administration TO KEEP EYES MOIST Ascorbic Acid 500 mg 04/17/25 21:00 05/09/25 09:30 Ascorbic Acid 250 Mg Tablet GT 05/17/25 20:59 500 mg BID KOURTNEY Administration Bumetanide 2 mg 04/21/25 09:00 05/04/25 05:31 Bumetanide Inj 0.25 Mg/Ml Vial 4 Ml IVP 05/21/25 08:59 2 mg BIDD KOURTNEY Administration Dextrose 25 ml 04/12/25 23:32 04/24/25 05:27 Dextrose 50%-Water Inj 50 Ml Syringe IV 05/12/25 23:31 25 ml Q15MIN PRN Administration BG 50-70 responsive npo pt Dextrose 50 ml 04/12/25 23:32 Dextrose 50%-Water Inj 50 Ml Syringe IV 05/12/25 23:31 Q15MIN PRN BG <50 OR BG <70 & pt unresponsive Glucagon 1 mg 04/12/25 23:32 Glucagon Inj 1 Mg Vial IM Q15MIN PRN BG <70, and no IV access Albumin Human 25 gm in 100 mls @ 100 mls/min 04/24/25 11:52 Albuminar-25 Ivpb IV PRN PRN DIALYSIS Heparin Sodium/Dextrose 25,000 unit in 250 mls @ 22.085 mls/hr 04/29/25 16:30 05/02/25 13:27 Heparin In D5w Ivpb IV 05/13/25 16:29 11.8 units/kg/hr .[id number] KOURTNEY 24.086 mls/hr Administration Protocol 10.82 UNITS/KG/HR Calcium Gluconate/Sodium Chloride 1 gm in 50 mls @ 50 mls/hr 05/09/25 11:30 Calcium Gluc/Ns 1000mg Ivpb IV 05/09/25 12:29 X1 ONE Dopamine HCl/Dextrose 400 mg in 250 mls @ 36.938 mls/hr 05/09/25 11:36 Intropin In D5w Ivpb IV 06/08/25 11:35 .[id number] KOURTNEY Protocol 5 MCG/KG/MIN Insulin Glargine 38 unit 04/13/25 09:00 05/09/25 09:15 Insulin Glargine (Lantus) 5 Unit/0.05 Ml (Per 5 Units) SC 05/13/25 08:59 38 unit QDAY KOURTNEY Administration Insulin Human Lispro 0 unit 04/13/25 00:00 05/09/25 05:36 Insulin Lispro (Admelog) 1 Unit/0.01 Ml Unit SC 05/13/25 00:00 Not Given Q6HR KOURTNEY Protocol Lansoprazole 30 mg 05/05/25 09:00 05/09/25 09:30 Lansoprazole 30 Mg Tab. GT 06/04/25 08:59 30 mg QDAY KOURTNEY Administration Ondansetron HCl 4 mg 04/12/25 23:27 04/17/25 05:28 Ondansetron Inj 2 Mg/Ml Inj 2 Ml IVP 05/12/25 23:26 4 mg Q6H PRN Administration NAUSEA OR VOMITING Protocol Pharmacy Consult 1 each 04/24/25 08:43 Pharmacy Renal Dose Adjustment 1 Ea XX 05/24/25 08:42 PRN PRN CONSULT Polyethylene Glycol 34 gm 05/02/25 09:00 05/09/25 10:33 Polyethylene Glycol 17 Gm Packet GT 06/01/25 08:59 34 gm QDAY KOURTNEY Administration Sennosides 2 tab 05/02/25 09:00 05/09/25 09:30 Senna Tablet GT 06/01/25 08:59 2 tab QDAY KOURTNEY Administration Protocol Sodium Hypochlorite 473 ml 05/06/25 21:00 05/09/25 10:51 Sod Hypochlorite 1/4 Str 473 Ml Btl IRRIG 06/05/25 20:59 473 ml BID KOURTNEY Administration Zinc Sulfate 220 mg 04/18/25 09:00 05/09/25 09:30 Zinc Sulfate 220 Mg Capsule GT 05/18/25 08:59 220 mg QDAY KOURTNEY Administration Plan Assessment 64-year-old male with past medical history of DM2, hypertension, A-fib, and Jehova's witness was admitted to the ICU on 02/27/2025 for shock and acute hypoxic respiratory failure. He is s/p laparoscopic J-tube placement from [facility]. #Decubitus ulcer status post excisional debridement of sacral decubitus ulcer, washout and placement of wound VAC, 04/29 #Chronic back pain Not requiring surgical intervention at this time Unstageable sacral ulcer Debridement bedside on 04/17/2025 Wound reassessed by wound care team and general surgeon on 04/24/202504/29: excisional debridement of sacral decubitus ulcer, washout and placement of wound VAC. 05/02: Patient had significant bleeding overnight, wound VAC leaked. Hemoglobin stable this morning, patient's bleeding from wound overnight was controlled with suture ligation. Wound was assessed by general surgeon, patient was transitioned back to red dry dressings daily. Plan: - Continue wound care - General Surgery consulted, appreciate recommendations - Continue to hold heparin - [place] 5 as needed - Skin barrier creams PRN - Referral to wound care #Leukocytosis, elevated Pro-Sánchez. #Aspiration Pneumonia, completed treatment #Obesity hypoventilation syndrome and obstructive sleep apnea #Dysphagia #Tracheostomy Patient was intubated and ventilated due to hypoxic respiratory failure, was unable to be extubated. Tracheostomy was placed. PEG tube was able to be placed, patient transferred to [facility] for laparoscopic J-tube placement, is now being transferred back after procedure successfully completed Patient had elevated leukocytosis and Pro-Sánchez, will defer starting antibiotics for now, will follow labs in AM. Plan: - Dietary consulted, recommendations appreciated - Respiratory therapy consulted - Blow-by during the day, mechanical ventilation at night as needed at baseline, currently on mechanical ventilation - Completed antibiotic treatment #Acute kidney injury-suspicion of ischemic ATN?resolving #Fluid overload, improving #Acute on chronic hypoxic respiratory failure, improving. Patient looks clinically hypervolemic at this time 04/20 ? Attempt was made to place Fuller catheter however unable to pass catheter due to significant resistance and attempt was terminated. Discussed with nursing about possibility of weighing briefs daily. Patient had temporary hemodialysis catheter placed 04/24, receiving dialysis had 1 L removed on 04/24, 2 L on 04/25, 2.14 on 04/26, 2.1 L on 04/29; temporary dialysis catheter discontinued on 05/06 Plan: -Increase free water flushes to 70 cc/h per nephrology recommendations -Continue to hold Bumex. -Continue to hold heparin GGT -Monitor urine output -Avoid nephrotoxic agents -Renally dose medication # Normocytic normochromic anemia Multifactorial. Patient's baseline hemoglobin throughout the hospitalization has been in the range 9?11, patient did have some bleeding from wound VAC site on 05/02 which was controlled by suture ligation by general surgery. Had recurrent bleeding and eventually heparin drip was held. - Patient is a Muslim, denies any blood transfusion/blood products - Patient will be given erythropoietin x 1 and ferumoxytol IV x 1 to improve underlying anemia. Was given another dose of ferumoxytol 05/06. - Will repeat CBC as needed - Will consider ordering IV iron for today # Right diastolic CHF # Stage III diastolic dysfunction # Fluid overload status, resolving Patient appears clinically dry at this point, will hold on diuresis at this time ECHO 04/29/2025: Normal LV size and function. Estimated EF of 65%. Grade III Diastolic Dysfunction. Right ventricle is dilated with mild RV dysfunction. RVSP 47mmHg. RAP 15mmHg. Severe biatrial dilation. Moderate to Severe AOV calcification with no stenosis Mild tricuspid regurgitation No pericardial effusion. Plan: - Continue strict daily body weight - Continue hemodialysis per nephrology - Daily weights - Strict I&O - Renal panel every 3 days - If keeps up urine output and GFR may be able to remove temporary dialysis catheter #Jejunostomy tube #Abdominal abscess Patient report said that there was an intra-abdominal abscess that have could have been from a perforated ulcer in the past See also note reviewed, mentions that patient likely had a marginal ulcer, but also was not seen on EGD without, currently patient has no abdominal tenderness and is totally asymptomatic. No current drain at this time Patient is status post laparoscopic J-tube placement and is currently on feeds Patient will continue to have this tube and will likely go to a long-term care facility with this until patient can swallow safely Plan: ? Completed antibiotic treatment. ? Monitor vitals closely # Atrial fibrillation, by history [id number] score of 3 points indicating 3.2% risk of stroke per year HAS-BLED: 0 Currently rhythm controlled Plan: - Amiodarone 200 mg QDAY - Continue to hold metoprolol tartrate and amlodipine - Will hold heparin drip, risks and benefits discussed with patient, patient agreeable - Keep potassium and magnesium above 4 and 2 respectively - Telemetry #Right internal jugular venous thrombosis #Right arm swelling Continuing free water flushes, patient has gone multiple days of heparin drip since 04/01 Right upper extremity ultrasound May 04-shows right IJ thrombus Plan: ? Heparin drip is being held due to recurrent bleeding from sacral ulcer #Morbid obesity #DM2 A1C 7.6 on 03/05/2025 Patient has a BMI of 79.5->68.7 Plan: - ISS scale 2 - Hypoglycemia protocol ordered - 38 units of Lantus. #Health Maintenance Disposition: Telemetry DVT prophylaxis: Heparin drip being held due to significant bleeding. GI prophylaxis: Protonix Diet: 2Cal Tube Feeds with 30 cc/hour water flush CODE STATUS: Full code Patient plan of care was discussed with the attending physician, Dr. Turcios. Elizabeth Lamas PGY1 Attending Provider Attestation/Addendum I have discussed and was present for the essential components of the history, physical examination, diagnosis, and treatment plan with the resident. I agree with the patient's care as documented by the resident and amended herein by me. Arnol Turcios DO. Patient seen and evaluated this AM. No acute events overnight, vital signs stable, patient afebrile, patient stated he felt okay in the morning, denied any fever or chills despite uptrend in WBC to 24. Approximately 20 minutes after bedside visit, a rapid response was called with the patient in which he became unstable, became bradycardic with a heart rate in the 30s and low blood pressure. Patient was given 2 doses of atropine with minimal improvement and pacer pads were placed on the patient the patient was artificially paced. Blood pressure did improve, patient was transferred to the ICU, we suspect a mucous plug considering rapid decline in the patient's condition. A full panel of labs, chest x-ray, lactic acid, blood cultures were ordered and are pending. Although this document has been carefully reviewed, there may still be some phonetic and other typographical errors. These errors are purely grammatical due to imperfections in the software program and should not be construed in any way to compromise the substance of the patient's medical care during this visit.
[2025-05-09] MEDS: DOPamine/D5w 400 MG IVPB 400 MG/250 ML BAG 36.938 MG IV (11:51)
--- NOTE | 2025-05-09 11:59 | PC.SS ---
Pt had rapid response this morning for heart rate being low and low blood pressure. Pt has been transferred to ICU for monitoring. SS has spoken to dad by phone to inform him.
--- NOTE | 2025-05-09 12:00 | PD.RESEVENT ---
Documentation for date of: 05/09/25 Event Note Event Note: Patient had rapid response called around 11, patient is bradycardic in 30s, was noted to be hypotensive reported feeling dizzy. Patient did receive his amiodarone dose this morning, heart rate was within normal limits in a.m. During the rapid response patient was given atropine IV x 2 and calcium chloride 10 ml IV x 1. Patient continued to remain hypotensive and bradycardic, decision was made to start patient on transcutaneous pacing. Patient transferred to ICU after, patient will be upgraded to ICU for further management. Case discussed with Attending Dr. Turcios. Elizabeth Lamas PGY1 Disclaimer: This note was dictated by speech recognition. Minor errors in emergency department nurse may be present due to voice recognition software.
--- NOTE | 2025-05-09 12:02 | PC.PT ---
Patient had a rapid response and was transferred into the ICU. Will D/C the patient from PT services at this time.
[2025-05-09 12:04] LABS: Lactate (Lactic Acid) 1.5 mMol/L (0.4-2.0)
[2025-05-09 12:13] LABS: Basophils # (Auto) 0.0 Thou/mm3 (0.0-0.2); Basophils % (Auto) 0 % (0-2.5); Eosinophils # (Auto) 0.2 Thou/mm3 (0.0-0.5); Eosinophils % (Auto) 1 % (0-10); Hematocrit 22.3 % (41.0-53.0); Immature Granulocytes Auto 0.11 Thou/mm3 (0.00-0.00); Lymphocytes # (Auto) 5.5 Thou/mm3 (1.0-4.8); Lymphocytes % (Auto) 26 % (10-50); Mean Corpuscular HGB Conc 32.3 g/dl (31.0-37.0); Mean Corpuscular Hemoglobin 29.3 pg (25.0-35.0); Mean Corpuscular Volume 91 fL (80-100); Monocytes # (Auto) 2.1 Thou/mm3 (0.0-0.8); Monocytes % (Auto) 10 % (0-12); Neutrophils # (Auto) 13.6 Thou/mm3 (1.8-7.7); Neutrophils % (Auto) 63 % (37-80); Nucleated Red Blood Cell # 0.00 Thou/mm3 (0.00-0.00); Nucleated Red Blood Cell % 0 /100 WBC (0); Platelet Count 339 Thou/mm3 (140-440); RDW Standard Deviation 59.8 fL (35.1-43.9); Red Blood Count 2.46 Miln/mm3 (4.50-5.90); White Blood Count 21.5 Thou/mm3 (3.8-10.6)
[2025-05-09 12:32] LABS: Albumin, Serum 3.2 gm/dL (3.4-4.8); Albumin/Globulin Ratio 1.2 (1.2-2.2); Alkaline Phosphatase 165 U/L (46-116); Anion Gap 9 (7-16); Aspartate Amino Transferase 20 U/L (0-34); Bilirubin,Total 0.4 mg/dL (0.3-1.2); Calcium 9.2 mg/dL (8.3-10.6); Calcium (Corrected) 9.8 mg/dL (8.5-10.1); Carbon Dioxide 30.6 mMol/L (20.0-31.0); Chloride 100 mMol/L (98-107); Creatinine (Component) 2.9 mg/dL (0.6-1.3); Estimated Creatinine Clearance 42.1 mL/min (>60); Globulin 2.6 gm/dL (2.3-3.5); Glucose 145 mg/dL (74-106); Potassium 4.7 mMol/L (3.4-5.1); Sodium 140 mMol/L (136-145); Total Protein 5.8 gm/dL (5.7-8.2); Troponin I < 0.020 ng/mL (0.0-0.045); eGFR 23 See Note
[2025-05-09] MEDS: fentaNYL CIT INJ 50 mCg/ML AMP 2ML 100 MCG IVP (12:37)
[2025-05-09] MEDS: LIDOCAINE HCL 1% 20 ML VIAL 10 ML IM (12:38)
[2025-05-09 12:40] LABS: Alanine Aminotransferase 7 U/L (10-49); BUN/Creatinine Ratio 36 Ratio (12-20); Osmolality,Calculated 315 (275-295)
[2025-05-09 12:43] LABS: Hemoglobin 7.2 g/dL (13.5-16.0)
[2025-05-09 12:46] LABS: Blood Urea Nitrogen 105 mg/dL (9-23)
--- NOTE | 2025-05-09 12:56 | ESOP_ITS ---
<Statement entered by Ravi Posey MD - 05/10/25 14:17> Attending Attestation: Patient tolerated procedure well. I am with direct managing conscious sedation during procedure with Versed and fentanyl. Local lidocaine was also administered to anesthetize the airway and facilitate procedure. Patient tolerated procedure well with no immediate complications. Patient remained on mechanical ventilation throughout the night no significant desaturation events. Hemodynamics unchanged while on dopamine support. Significant left lower lobe mucous impacting and was easily removed with improvement in ventilation. Edema of the airways notable. Bilateral airways were inspected with no significant foreign object or tumor. Minimal secretions on the right which were easily cleared. Predominantly as stated above the left lower lobe with some in the lingula. There was no plugging of distal airways. BAL was performed of the lingula for sampling. Will await further studies to help narrow antibiotic spectrum if available. Aim to wean off inotropic/chronotropic support. PROCEDURES: Procedure Date / Time 05/09/25 1256 Procedure Narrative Procedure Narrative: Procedure: Flexible Bronchoscopy Consent: Emergent Indication: airway surveillance, secretion clearance Monitoring: vehicle monitor technician, blood pressure, pulse oximetry Anesthesia: Viscous Lidocaine Physician: Dr. Parra Attending: Dr. Posey Equipment: [email or web address] Regular Complications: none Entry: A flexible bronchoscope was lubricated and introduced through the indwelling tracheostomy tube in the standard fashion. Specimens: BAL Sent for Gram stain and culture. Findings: ? Larynx: unable to assess (tracheostomy) ? Tube: viscous, yellow mucous secretions ? Trachea: no secretions ? R mainstem: not assessed ? RUL: not assessed ? RML: not assessed ? RLL: not assessed ? L mainstem: Large mucous plug which was suctioned ? DIMAS: no secretions ? LLL: no secretions ? Lingula: Large mucous plug which was suctioned Supervised by my attending physician Dr. Posey ?Jake Parra MD [PGY1]
--- NOTE | 2025-05-09 12:56 | PD.RESCONSUL ---
HPI Data of Consult Patient: known to practice within the last 3 years Consult date: 05/09/25 Requesting Physician: Julius Turcios DO Admitting Provider: Tres Magana MD Attending Provider: Julius Turcios DO Primary Care Provider: Physician No Primary/Family Consult Narrative Reason for consult: Complete heart block History of present illness: 64-year-old male with past medical history of DM2, hypertension, A-fib, and Jehova's witness was admitted to the ICU on 02/27/2025 for shock and acute hypoxic respiratory failure. During his hospitalization patient was intubated for more than a week and had to be transitioned to tracheostomy chronically. After extubation he developed dysphagia and was started on tube feeds via NG for nutrition needs, he needed PEG tube/IR jejunostomy tube placement for continued nutrition. The services were not available at our institution due to the wait limits of our IR and OR beds. Patient was transferred to [facility] for incision of jejunostomy tube for feeding, during his stay there a abdominal abscess was incidentally found and percutaneously drained, he was subsequently transferred back to [facility]. While in hospital he developed a stage III/IV sacral decubitus ulcer approximately 10 x 5 cm and had debridement and suturing done by general surgeon, Dr. Negron. Patient was in the process of being worked up for discharge to home with ventilator and tube feeds. 05/09/2025: This morning approximately 11 AM patient became bradycardic in the 30s after receiving his daily dose of amiodarone p.o. a [employer] was called and calcium gluconate and calcium chloride were administered. Subsequently patient went into complete heart block and transcutaneous pacing was started, after patient went into A-fib with RVR [rates 150s] and blood pressure became unstable with maps in the 50s. Initially dobutamine infusion was started and then patient again went into A-fib with RVR and he received 1 round of electrical, synchronized cardioversion with 100 J. Patient remained in A-fib but rate now controlled. Subsequently dopamine infusion was stopped and patient started on low-dose phenylephrine. Patient was upgraded to the ICU for complete heart block s/p chemical and electrical cardioversion. cc:: cc: Julius Turcios DO Review of Systems Review of Systems ROS Unobtainable: unobtainable due to medical condition and due to endotracheal tube (Tracheostomy) Past Medical History Past Medical History CARDIAC: Positive Hypertension; Negative Congestive Heart Failure RESPIRATORY: Negative Chronic Obstructive Pulmonary Disease (COPD) GENITOURINARY: Negative Renal Disease ENDOCRINE: Positive Diabetes Mellitus Type 2; Negative Diabetes Mellitus Type 1 Social History SMOKING STATUS: Never smoker Past Medical History Comments PMH COMMENT: PMH: DM2, hypertension, and A-fib Social Hx: Denies any smoking, drugs, admits social drinking Medications: Amlodipine, losartan, glipizide, metformin, metoprolol succinate, gabapentin, and tramadol Exam Vital Signs Temp Pulse Resp BP Pulse Ox O2 Del Method O2 Flow Rate 97.3 F 66 16 75/46 L 99 Mechanical Ventilation 12 05/09/25 08:00 05/09/25 12:20 05/09/25 08:00 05/09/25 11:51 05/09/25 12:20 05/09/25 08:00 05/09/25 08:00 FiO2 100 05/09/25 12:20 Narrative Exam Constitutional Alert, oriented x 3 and mild distress. Elderly male, morbidly obese HEENT Vision grossly intact. Patent nares. Trachea midline. Tracheostomy tube in situ, exit site clean. ACMV, VT 500, RR 22, PEEP 8, FiO2 75% Respiratory Chest normal on inspection and decreased air entry in all lung sims. Cardiovascular S1 and S2 audible, RRR. No murmurs carotid bruit. No gross JVD. Abdominal Soft, obese and non tender to palpation in all quadrants. BS +. Jejunostomy tube in situ, exit site clean Genitourinary No bladder tenderness, no flank pain. Normal to palpation Musculoskeletal Extremities tone within normal limits. No LE edema. Neurological CN II - XII grossly intact. Extremity motor and sensation grossly intact. Skin Warm, dry and intact. 10 x 5 large sacral decubitus ulcer, necrotic tissue noted, easily friable. Psychiatric Patient has good affect, is cooperative Results Labs 05/10/25 04:27 05/10/25 04:27 Labs: Short CBC 05/09/25 05/09/25 Range/Units 04:21 11:30 WBC 24.6 H D 21.5 H (3.8-10.6) Thou/mm3 Hgb 7.5 L 7.2 L (13.5-16.0) g/dL Hct 23.8 L 22.3 L (41.0-53.0) % Plt Count 355 339 (140-440) Thou/mm3 BMP 05/09/25 05/09/25 04:21 11:30 Sodium 142 140 Potassium 4.7 4.7 Chloride 99 100 Carbon Dioxide 32.9 H 30.6 BUN 107 H* 105 H* Creatinine 3.0 H 2.9 H Glucose 148 H 145 H Calcium 9.0 9.2 Cardiac Enzymes 05/09/25 Range/Units 11:30 Troponin I < 0.020 (0.0-0.045) ng/mL Liver Function 05/09/25 05/09/25 Range/Units 04:21 11:30 Total Bilirubin 0.4 0.4 (0.3-1.2) mg/dL AST 16 20 (0-34) U/L ALT < 7 L 7 L (10-49) U/L Alkaline Phosphatase 167 H D 165 H (46-116) U/L Albumin 3.3 L 3.2 L (3.4-4.8) gm/dL ABG Interpretation ABG results: 04/18/25 04/18/25 04/18/25 04:40 06:27 10:30 ABG pH 7.28 L 7.33 L 7.36 ABG pCO2 72 H* 67 H 61 H ABG pO2 132 H 60 L D 60 L ABG HCO3 34 H 35 H 34 H ABG O2 Saturation 100 H 93 93 ABG Base Excess 6 H 7 H 8 H 04/19/25 08:53 ABG pH 7.47 H D ABG pCO2 45 D ABG pO2 66 L ABG HCO3 33 H ABG O2 Saturation 96 ABG Base Excess 8 H Quality Measures Quality Measures VTE therapy Advance care planning discussed with:: patient and other (Parents) Medications Home Medications and Allergies Home Medications ?Medication ?Instructions ?Recorded ?Confirmed ?Type amlodipine 10 mg tablet 10 mg PO 1XD 02/27/25 04/13/25 History gabapentin 600 mg tablet 600 mg PO 3XD 02/27/25 04/13/25 History glipizide 10 mg tablet 10 mg PO 1XD 02/27/25 04/13/25 History losartan 25 mg tablet 25 mg PO 1XD 02/27/25 04/13/25 History metformin 1,000 mg tablet 1,000 mg PO 2XD 02/27/25 04/13/25 History metoprolol succinate 100 mg 100 mg PO 2XD 02/27/25 04/13/25 History tablet,extended release 24 hr tramadol 50 mg tablet 50 mg PO 3XD 02/27/25 04/13/25 History Allergies Allergy/AdvReac Type Severity Reaction Status Date / Time No Known Allergies Allergy Verified 02/27/25 06:45 Visit Medications Acetaminophen (Acetaminophen 325 Mg Tablet) 650 mg PO Q6HR PRN PRN Reason: pain 1-3 OR Fever >100.4 Stop: 05/22/25 20:42 Last Admin: 05/06/25 07:14 Dose: 650 mg Hydrocodone Bitart/Acetaminophen (Hydrocodone/Apap 5/325 Tablet) 1 tab PO Q8HR PRN PRN Reason: PAIN SCALE 4-10(Mod-Sev Stop: 05/11/25 08:22 Last Admin: 05/08/25 11:45 Dose: 1 tab Amiodarone HCl (Amiodarone Hcl 200 Mg Tablet) 200 mg GT QDAY [facility] Stop: 05/13/25 08:59 Last Admin: 05/09/25 09:30 Dose: 200 mg Amlodipine Besylate (Amlodipine Besylate 5 Mg Tablet) 10 mg GT QDAY [facility] Stop: 05/13/25 08:59 Last Admin: 05/04/25 09:39 Dose: Not Given Artificial Tears (Artificial Tears 225 Drop/15 Ml Btl) 0 drop BOTH EYES PRN PRN PRN Reason: TO KEEP EYES MOIST Stop: 05/14/25 19:32 Last Admin: 05/07/25 20:31 Dose: 1 drop Ascorbic Acid (Ascorbic Acid 250 Mg Tablet) 500 mg GT BID [facility] Stop: 05/17/25 20:59 Last Admin: 05/09/25 09:30 Dose: 500 mg Bumetanide (Bumetanide Inj 0.25 Mg/Ml Vial 4 Ml) 2 mg IVP BIDD [facility] Stop: 05/21/25 08:59 Last Admin: 05/04/25 05:31 Dose: 2 mg Dextrose (Dextrose 50%-Water Inj 50 Ml Syringe) 25 ml IV Q15MIN PRN PRN Reason: BG 50-70 responsive npo pt Stop: 05/12/25 23:31 Last Admin: 04/24/25 05:27 Dose: 25 ml Dextrose (Dextrose 50%-Water Inj 50 Ml Syringe) 50 ml IV Q15MIN PRN PRN Reason: BG <50 OR BG <70 & pt unresponsive Stop: 05/12/25 23:31 Glucagon (Glucagon Inj 1 Mg Vial) 1 mg IM Q15MIN PRN PRN Reason: BG <70, and no IV access Albumin Human (Albuminar-25 Ivpb) 25 gm in 100 mls @ 100 mls/min IV PRN PRN PRN Reason: DIALYSIS Heparin Sodium/Dextrose (Heparin In D5w Ivpb) 25,000 unit in 250 mls @ 22.085 mls/hr IV .[id number] [facility]; Protocol Stop: 05/13/25 16:29 Last Admin: 05/02/25 13:27 Dose: 11.8 units/kg/hr, 24.086 mls/hr Dopamine HCl/Dextrose (Intropin In D5w Ivpb) 400 mg in 250 mls @ 36.938 mls/hr IV .Q6H47M [facility]; Protocol Stop: 06/08/25 11:35 Last Titration: 05/09/25 11:57 Dose: 7 mcg/kg/min, 51.713 mls/hr Insulin Glargine (Insulin Glargine (Lantus) 5 Unit/0.05 Ml (Per 5 Units)) 38 unit SC QDAY [facility] Stop: 05/13/25 08:59 Last Admin: 05/09/25 09:15 Dose: 38 unit Insulin Human Lispro (Insulin Lispro (Admelog) 1 Unit/0.01 Ml Unit) 0 unit SC Q6HR [facility]; Protocol Stop: 05/13/25 00:00 Last Admin: 05/09/25 11:59 Dose: Not Given Lansoprazole (Lansoprazole 30 Mg Tab.Rap.Dr) 30 mg GT QDAY [facility] Stop: 06/04/25 08:59 Last Admin: 05/09/25 09:30 Dose: 30 mg Ondansetron HCl (Ondansetron Inj 2 Mg/Ml Inj 2 Ml) 4 mg IVP Q6H PRN; Protocol PRN Reason: NAUSEA OR VOMITING Stop: 05/12/25 23:26 Last Admin: 04/17/25 05:28 Dose: 4 mg Pharmacy Consult (Pharmacy Renal Dose Adjustment 1 Ea) 1 each XX PRN PRN PRN Reason: CONSULT Stop: 05/24/25 08:42 Polyethylene Glycol (Polyethylene Glycol 17 Gm Packet) 34 gm GT QDAY [facility] Stop: 06/01/25 08:59 Last Admin: 05/09/25 10:33 Dose: 34 gm Sennosides (Senna Tablet) 2 tab GT QDAY [facility]; Protocol Stop: 06/01/25 08:59 Last Admin: 05/09/25 09:30 Dose: 2 tab Sodium Hypochlorite (Sod Hypochlorite 1/4 Str 473 Ml Btl) 473 ml IRRIG BID [facility] Stop: 06/05/25 20:59 Last Admin: 05/09/25 10:51 Dose: 473 ml Zinc Sulfate (Zinc Sulfate 220 Mg Capsule) 220 mg GT QDAY [facility] Stop: 05/18/25 08:59 Last Admin: 05/09/25 09:30 Dose: 220 mg Discontinued Medications Acetaminophen (Acetaminophen 325 Mg Tablet) 650 mg PO Q6HR PRN PRN Reason: pain and Fever >100.4 Stop: 05/22/25 20:42 Last Admin: 04/22/25 20:52 Dose: 650 mg Hydrocodone Bitart/Acetaminophen (Hydrocodone/Apap 5/325 Tablet) 1 tab GT Q4HR PRN PRN Reason: PAIN SCALE 4-10(Mod-Sev Stop: 04/17/25 23:26 Last Admin: 04/14/25 20:25 Dose: 1 tab Hydrocodone Bitart/Acetaminophen (Hydrocodone/Apap 5/325 Tablet) 1 tab PO Q6HR PRN PRN Reason: PAIN SCALE 4-10(Mod-Sev Stop: 05/05/25 02:05 Last Admin: 05/02/25 03:27 Dose: 1 tab Albuterol/Ipratropium (Albuterol/Ipratropium (Duoneb) Rt Gloria 3 Ml Nebu) 3 ml INH X1 ONE Stop: 04/18/25 04:26 Last Admin: 04/18/25 04:46 Dose: 3 ml Atropine Sulfate (Atropine Sulf Inj 0.1 Mg/Ml Syr 10 Ml) 1 mg IVP X1 ONE Stop: 05/09/25 11:13 Last Admin: 05/09/25 11:14 Dose: 1 mg Atropine Sulfate (Atropine Sulf Inj 0.1 Mg/Ml Syr 10 Ml) 1 mg IV X1 ONE Stop: 05/09/25 11:01 Last Admin: 05/09/25 11:07 Dose: 1 mg Bumetanide (Bumetanide Inj 0.25 Mg/Ml Vial 4 Ml) 2 mg IVP QDAY [facility] Stop: 05/13/25 08:59 Bumetanide (Bumetanide Inj 0.25 Mg/Ml Vial 4 Ml) 1 mg IVP X1 ONE Stop: 04/18/25 09:53 Last Admin: 04/18/25 12:23 Dose: 1 mg Calcium Chloride (Calcium Chloride 10% Inj 10 Ml Syrg) 10 ml IV X1 ONE Stop: 05/09/25 12:01 Last Admin: 05/09/25 11:06 Dose: 10 ml Collagenase (Collagenase Oint 30 Gm Tube) 0 gm TOP HS [facility]OU[facility] Stop: 05/15/25 20:59 Last Admin: 04/16/25 23:45 Dose: 1 applicatio Epoetin Rambo (Epoetin Rambo-Epbx Inj 10,000 Unit/Ml Vial (Non-Esrd)) 10,000 unit IV X1 ONE Stop: 04/26/25 10:01 Last Admin: 04/26/25 09:16 Dose: 10,000 unit Epoetin Rambo (Epoetin Rambo-Epbx Inj 10,000 Unit/Ml Vial (Esrd)) 10,000 unit SC X1 ONE Stop: 05/02/25 08:21 Last Admin: 05/02/25 10:20 Dose: 10,000 unit Epoetin Rambo (Epoetin Rambo-Epbx Inj 10,000 Unit/Ml Vial (Esrd)) 10,000 unit SC X1 ONE Stop: 05/06/25 08:20 Last Admin: 05/06/25 08:45 Dose: 10,000 unit Fentanyl Citrate (Fentanyl Cit Inj 50 Mcg/Ml Amp 2ml) 50 mcg IVP Q5MIN PRN PRN Reason: PAIN SCALE 4-10(Mod-Sev Stop: 04/29/25 16:08 Fentanyl Citrate (Fentanyl Cit Inj 50 Mcg/Ml Amp 2ml) 100 mcg IM X1 ONE Stop: 05/09/25 11:14 Last Admin: 05/09/25 11:21 Dose: 100 mcg Fentanyl Citrate (Fentanyl Cit Inj 50 Mcg/Ml Amp 2ml) 100 mcg IVP X1 ONE Stop: 05/09/25 12:08 Heparin Sodium (Porcine) (Heparin Sod Inj 5000 Unit/Ml Vial) 4,000 unit IV X1 ONE Stop: 04/13/25 10:31 Last Admin: 04/13/25 10:35 Dose: 4,000 unit Heparin Sodium (Porcine) (Heparin Sod Inj 1000 Unit/Ml Vial 10 Ml) 3,000 unit INDWELLCAT PRN PRN PRN Reason: DIALYSIS Stop: 05/08/25 13:45 Last Admin: 04/29/25 11:04 Dose: 3,000 unit Heparin Sodium (Porcine) (Heparin Sod Inj 5000 Unit/Ml Vial) 5,000 unit SC Q8HR [facility] Stop: 04/27/25 09:46 Last Admin: 04/27/25 05:23 Dose: 5,000 unit Heparin Sodium (Porcine) (Heparin Sod Inj 5000 Unit/Ml Vial) 4,000 unit IVP X1 ONE Stop: 04/27/25 20:05 Last Admin: 04/27/25 20:43 Dose: 4,000 unit Heparin Sodium (Porcine) (Heparin Sod Inj 5000 Unit/Ml Vial) 8,000 unit IVP X1 ONE Stop: 04/29/25 16:31 Last Admin: 04/29/25 16:33 Dose: 8,000 unit Heparin Sodium (Porcine) (Heparin Sod Inj 5000 Unit/Ml Vial) 4,000 unit IVP X1 ONE Stop: 04/30/25 06:35 Last Admin: 04/30/25 07:23 Dose: 4,000 unit Heparin Sodium (Porcine) (Heparin Sod Inj 5000 Unit/Ml Vial) 8,050 unit 40 unit/kg (8050 unit) IV X1 ONE Stop: 04/30/25 15:21 Last Admin: 04/30/25 19:09 Dose: Not Given Heparin Sodium (Porcine) (Heparin Sod Inj 5000 Unit/Ml Vial) 4,000 unit IV X1 ONE Stop: 04/30/25 15:25 Last Admin: 04/30/25 15:36 Dose: 4,000 unit Hydromorphone HCl (Hydromorphone Inj 2 Mg/Ml Vial) 0.25 mg IVP X1 ONE Stop: 04/29/25 18:37 Last Admin: 04/29/25 18:44 Dose: 0.25 mg Heparin Sodium/Dextrose (Heparin In D5w Ivpb) 25,000 unit in 250 mls @ 17.986 mls/hr IV .[id number] [facility]; Protocol Stop: 04/26/25 23:44 Last Titration: 04/19/25 00:00 Dose: 11.13 units/kg/hr, 21.926 mls/hr Sodium Chloride (Ns) 500 mls @ 999 mls/hr IV .Q31M ONE Stop: 04/13/25 12:49 Last Infusion: 04/13/25 23:38 Dose: Infused Cefepime HCl 2 gm/ Sodium (Chloride) 50 mls @ 100 mls/hr IV Q8HR [facility] Stop: 04/20/25 13:07 Last Admin: 04/18/25 05:19 Dose: 100 mls/hr Metronidazole (Flagyl 500 Mg Iv) 500 mg in 100 mls @ 200 mls/hr IV Q8HR [facility] Stop: 04/20/25 13:08 Last Infusion: 04/20/25 06:21 Dose: Infused Ceftriaxone Sodium/Dextrose (Rocephin/D5w 1gm Iv Premix) 1 gm in 50 mls @ 100 mls/hr IV QDAY [facility] Stop: 04/25/25 09:47 Last Admin: 04/23/25 08:42 Dose: 100 mls/hr Lactated Ringer's (Lactated Ringers) 500 mls @ 999 mls/hr IV .Q31M ONE Stop: 04/19/25 10:30 Last Admin: 04/19/25 12:07 Dose: Not Given Lactated Ringer's (Lactated Ringers) 500 mls @ 999 mls/hr IV .Q31M ONE Stop: 04/19/25 12:30 Last Admin: 04/19/25 11:59 Dose: 999 mls/hr Albumin Human (Albuminar-25 Ivpb) 25 gm in 100 mls @ 100 mls/hr IV BID [facility] Stop: 04/23/25 08:59 Last Admin: 04/22/25 20:32 Dose: 100 mls/hr Acetazolamide Sodium 500 mg/ (Sodium Chloride) 50 mls @ 100 mls/hr IV X1 ONE Stop: 04/22/25 10:58 Last Admin: 04/22/25 11:52 Dose: 100 mls/hr Heparin Sodium/Dextrose (Heparin In D5w Ivpb) 25,000 unit in 250 mls @ 18 mls/hr IV .[id number] [facility]; Protocol Stop: 05/11/25 09:59 Last Titration: 04/29/25 06:45 Dose: 0 units/kg/hr, 0 mls/hr Lactated Ringer's (Lactated Ringers) 1,000 mls @ 999 mls/hr IV .Q1H1M ONE Stop: 05/02/25 02:58 Last Admin: 05/07/25 19:39 Dose: Not Given Lactated Ringer's (Lactated Ringers) 1,000 mls @ 150 mls/hr IV .Q6H40M ONE Stop: 05/02/25 08:37 Last Admin: 05/07/25 19:39 Dose: Not Given Lactated Ringer's (Lactated Ringers) 500 mls @ 150 mls/hr IV .Q3H20M ONE Stop: 05/02/25 05:18 Last Admin: 05/02/25 01:54 Dose: 150 mls/hr Ferumoxytol 510 mg/ Sodium (Chloride) 117 mls @ 234 mls/hr IV X1 ONE Stop: 05/02/25 08:16 Last Admin: 05/02/25 08:45 Dose: 234 mls/hr Ferumoxytol 510 mg/ Sodium (Chloride) 117 mls @ 234 mls/hr IV .Q30M ONE Stop: 05/06/25 08:59 Last Admin: 05/06/25 10:43 Dose: 234 mls/hr Calcium Gluconate/Sodium Chloride (Calcium Gluc/Ns 1000mg Ivpb) 1 gm in 50 mls @ 50 mls/hr IV X1 ONE Stop: 05/09/25 12:29 Last Admin: 05/09/25 11:59 Dose: Not Given Lansoprazole (Lansoprazole 30 Mg Tab.Rap.) 30 mg GT BID [facility] Stop: 05/13/25 08:59 Last Admin: 05/04/25 20:25 Dose: 30 mg Losartan Potassium (Losartan Potassium 25 Mg Tablet) 25 mg GT QDAY [facility] Stop: 05/13/25 08:59 Metoprolol Succinate (Metoprolol Succinate Xl 25 Mg Tabcr) 100 mg GT BID [facility] Stop: 05/13/25 08:59 Last Admin: 04/17/25 09:00 Dose: Not Given Metoprolol Tartrate (Metoprolol Tartrate 25 Mg Tablet) 100 mg GT BID [facility] Stop: 05/17/25 10:14 Last Admin: 05/04/25 09:40 Dose: Not Given Metoprolol Tartrate (Metoprolol Tartrate Inj 1 Mg/Ml Amp 5 Ml) 1 mg IVP Q5MIN PRN PRN Reason: TACHYCARDIA Stop: 04/29/25 16:08 Midazolam HCl (Midazolam Inj 1 Mg/Ml Vial 2 Ml) 4 mg IVP X1 ONE Stop: 04/24/25 10:16 Last Admin: 04/24/25 10:30 Dose: 4 mg Midazolam HCl (Midazolam Inj 1 Mg/Ml Vial 2 Ml) 1 mg IVP Q5MIN PRN PRN Reason: ANXIETY Stop: 04/29/25 16:08 Midazolam HCl (Midazolam Inj 1 Mg/Ml Vial 2 Ml) 4 mg IVP X1 ONE Stop: 05/09/25 11:22 Last Admin: 05/09/25 11:34 Dose: 4 mg Midazolam HCl (Midazolam Inj 1 Mg/Ml Vial 2 Ml) 4 mg IVP X1 ONE Stop: 05/09/25 12:08 Pantoprazole Sodium (Pantoprazole 40 Mg Tablet) 40 mg PO Q12HR [facility] Stop: 05/13/25 08:59 Last Admin: 04/14/25 08:38 Dose: 40 mg Polyethylene Glycol (Polyethylene Glycol 17 Gm Packet) 34 gm PO QDAY [facility] Stop: 06/01/25 08:59 Rivaroxaban (Rivaroxaban 10 Mg Tablet) 20 mg PO QDAY [facility] Stop: 05/10/25 08:59 Last Admin: 04/24/25 21:19 Dose: Not Given Sennosides (Senna Tablet) 2 tab PO QDAY [facility]; Protocol Stop: 06/01/25 08:59 Silver Nitrate (Silver Nitrate 1 Appl Ea) 1 appl TOP X1 ONE Stop: 04/17/25 11:19 Last Admin: 04/17/25 11:18 Dose: Not Given Silver Nitrate (Silver Nitrate 1 Appl Ea) 1 appl TOP X1 ONE Stop: 05/02/25 18:57 Last Admin: 05/07/25 19:40 Dose: Not Given Sodium Chloride (Sodium Cl Irrig Soln 1,000 Ml Bag) 0 ml IRRIG QDAY [facility] Stop: 05/31/25 09:14 Last Admin: 05/02/25 10:19 Dose: Not Given Sodium Hypochlorite (Sod Hypochlorite 1/4 Str 473 Ml Btl) 473 ml IRRIG [facility] Stop: 05/15/25 20:59 Last Admin: 04/28/25 21:45 Dose: 1 applicatio Sodium Polystyrene Sulfonate (Sod Polystyrene Sulfon Susp 15 Gm/60 Ml Btl) 30 gm PO X1 ONE Stop: 04/21/25 23:45 Last Admin: 04/22/25 00:09 Dose: 30 gm Tuberculin PPD (Tuberculin Ppd Inj 5 Unit/0.1 Ml Dose) 5 unit ID X1 ONE Stop: 04/25/25 09:03 Last Admin: 04/25/25 11:46 Dose: 5 unit Assessment & Plan Plan 64-year-old male with past medical history of DM2, hypertension, A-fib, and Jehova's witness was admitted to the ICU on 02/27/2025 for shock and acute hypoxic respiratory failure. During his hospitalization patient was intubated for more than a week and had to be transitioned to tracheostomy chronically. After extubation he developed dysphagia and was started on tube feeds via NG for nutrition needs, he needed PEG tube/IR jejunostomy tube placement for continued nutrition. The services were not available at our institution due to the wait limits of our IR and OR beds. Patient was transferred to [facility] for incision of jejunostomy tube for feeding, during his stay there a abdominal abscess was incidentally found and percutaneously drained, he was subsequently transferred back to [facility]. While in hospital he developed a stage III/IV sacral decubitus ulcer approximately 10 x 5 cm and had debridement and suturing done by general surgeon, Dr. Negron. Patient was in the process of being worked up for discharge to home with ventilator and tube feeds. Patient admitted to the ICU from complete heart block requiring transcutaneous pacing and phenylephrine infusion. NEURO Chemical Sedation Rx: Fentanyl infusion as needed, midazolam 2 Mg IV Q2 hourly as needed for pain/agitation RRX: Monitor response and titrate as necessary. CVS Chronic diastolic CHF [EF 65%] Patient appears clinically dry at this point, will hold on diuresis at this time ECHO 04/29/2025: Normal LV size and function. Estimated EF of 65%. Grade III Diastolic Dysfunction. Right ventricle is dilated with mild RV dysfunction. RVSP 47mmHg. RAP 15mmHg. Severe biatrial dilation. Moderate to Severe AOV calcification with no stenosis Mild tricuspid regurgitation No pericardial effusion. Rx: Patient 100 cc/day fluid restriction, daily weights, hold tube feeds for now Paroxysmal atrial fibrillation [id number] score of 3 points indicating 3.2% risk of stroke per year HAS-BLED: 0 Rx: Will hold amiodarone p.o. for now. If patient goes back into A-fib with stable blood pressure will start on amiodarone IV. RRx: Continue phenylephrine infusion, titrate as necessary for MAP >65 PULM Acute on chronic respiratory failure secondary to mucous plug and HCAP Dx: On chest x-ray showed possible mucous plugging of left lingular lobe Rx: Patient underwent bronchoscopy with BAL today after which A-fib with RVR improved RRX: Continue routine tracheostomy care and frequent suctioning. HCAP Dx: Patient chronically trached and hospitalized for greater than 60 days. Rx: Started on Zosyn 4.5 g IV Q6 hourly and vancomycin IV daily Rx: Bronchial lavage sent for Gram stain and culture. GI/Hep Jejunostomy tube Abdominal abscess s/p percutaneous drainage Rx: Tube feeds currently held RENAL CKD stage IIIb Rx: Renally dose medication, avoid nephrotoxic agents. HEME/ONC Normocytic Anemia DDx: Anemia of chronic disease, blood loss anemia, GUMARO Dx: Hb 7.2, HCT 22.3 Rx: Limit lab draws to avoid further blood loss. ENDO T2 IDDM Rx: Insulin glargine 38U SC daily ID HCAP Rx: See pulm MSK/DERM Large decubitus ulcer Rx: Wound care as per wound care nurse and general surgery recommendations ICU Health maintenance: Dispo: Admit to ICU for complete heart block Diet: N.p.o. DVT ppx: SCDs GI ppx: Protonix 40mg qD Mechanical ventilattion: Yes, Mode: ACVC VT 500, RR 20, PEEP 8, FiO2 75%no Sedation: Yes, Fentanyl (CPOT 0-1) IV lines: 2 pIV Central line: No Arterial line: No Fuller: No Code status: FULL CODE Plan of care discussed with Attending Dr. Kalpesh Parra MD PGY 1 Disclaimer: This note was dictated by speech recognition. Minor errors in filter press supervisor may be present due to voice recognition software. Attending Provider Attestation/Addendum Patient seen and examined with above resident, Jake Parra MD. I agree with the findings, assessment, and plan of care as document except for any differences below. Patient rapid response this morning. Patient noted to have significant bradycardia. Did not respond initial atropine and calcium bolus. Patient required transcutaneous pacing was able to capture adequately and maintain rate in the 70s. Briefly hemodynamically unstable. IV fentanyl was used. However lost IV access initially requiring additional IM fentanyl and Versed for comfort. Patient was bagged with saline to help with airway clearance though this did not significantly help. Breath sounds were present bilaterally per resident exam during assessment. Patient was transferred emergently to the ICU for ongoing management. Patient was started on peripheral dopamine with significant improvement in heart rate and ability to remove transcutaneous pacing. Patient developed atrial fibrillation with RVR subsequently. Promptly stopped dopamine drip. Patient with borderline hypotension with sedation given. Elective cardioversion. Patient tolerated this well with adequate rate control he remains in atrial fibrillation. Low-dose phenylephrine was initiated to help with pressor support. May have some component of reflux bradycardia. Patient remains stable on mechanical ventilation after bronchoscopy done as chest film suggested could have sign of the left lower lobe with significant pooling secretions that were cleared and improvement in gas exchange. Patient is asleep now after sedation on this morning's events. Will follow-up in a.m. for long-term plan of care. Discussed with cardiology and at this point we will not plan for temporary transvenous pacer. Patient may have tachybradycardia syndrome but with potential underlying infection, not a candidate at this time for permanent pacemaker. Total critical care time: I personally spent 100 minutes for review of physiologic parameters, directing plan of care throughout today, coordination of care with other specialist, and counseling patient and family at bedside. This is exclusive of time spent teaching housestaff performing separate billable procedures. Patient with significant risk of increasing morbidity and mortality warranting close monitoring of care with available in the ICU. Patient required critical care services for cardiogenic shock, bradycardia, mucous plugging of the left lower lobe, and acute on chronic respiratory failure.
--- NOTE | 2025-05-09 13:00 | EKG_ITS ---
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 Attendant: JAMESON : 1960 Requested By: Jake Parra Order Number: [id number] Reading MD: Jake Parra Measurements Intervals [place] Rate: 156 P: DE: QRS: -48 QRSD: 142 T: 103 QT: 293 QTc: 473 Interpretive Statements ATRIAL FIBRILLATION WITH RAPID VENTRICULAR RESPONSE WITH ABERRANT CONDUCTION OR VENTRICULAR PREMATURE COMPLEXES RIGHT BUNDLE BRANCH BLOCK LEFT ANTERIOR FASCICULAR BLOCK ST DEPRESSION, CONSIDER SUBENDOCARDIAL INJURY Compared to ECG 04/18/2025 04:49:37 Ventricular premature complex(es) now present Aberrant conduction of supraventricular beat(s) now present ST (T wave) deviation now present Myocardial infarct finding no longer present /store/S0/[id number]/ecg/[id number].pdf
[2025-05-09] MEDS: PHENYLEPHRINE HCL 40 MG in SODIUM CHLORIDE 0.9% 96 ML IV (13:41)
[2025-05-09] MEDS: Vancomycin Inj 2,000 MG in SODIUM CHLORIDE 0.9% 500 ML 500 ML 150 MG IV (13:42)
--- NOTE | 2025-05-09 13:48 | ESOP_ITS ---
<Statement entered by Ravi Posey MD - 05/10/25 14:09> Attending attestation: I was present for entire procedure. No immediate complications. Patient remained in atrial fibrillation but heart rate now under control. Patient was started on phenylephrine for mild vasopressor support and reflex bradycardia that may have helped further reduce the rate. Cardiology attending notified. No plans for transvenous pacemaker at this point. PROCEDURES: Procedure Date / Time 05/09/25 9268 Procedure Narrative Procedure Narrative: Electrical Cardioversion PROCEDURE NOTE - - Director Of Sports Medicine: Stefano Terrell MD Supervising Physician: Ravi Posey MD Indication: Atrial Fibrillation, HR 150-180 bpm [place] Protocol: a time out was performed and the correct patient and procedure were verified Consent: Not obtained, urgent ICU setting. Patient was placed on continuous cardiac monitoring and continuous pulse oximetry. Supplemental oxygen was administered via nasal cannula. Electrodes were placed in an miah-lateral fashion. After appropriate level of sedation was achieved with Fentanyl 50mcg, synchronized cardioversion was performed at 100 Joules with successful conversion to sinus rhythm, HR 95-105 bpm. Complications: ?None, patient tolerated the procedure well. Plan of care discussed with attending Dr Posey, - Stefano Terrell M.D. PGY2 Disclaimer: Minor errors in turning lathe tender may be present as this note was dictated using voice recognition software.
[2025-05-09] MEDS: fentaNYL CIT INJ 50 mCg/ML AMP 2ML IVP (13:55)
--- NOTE | 2025-05-09 14:03 | PC.NURSE ---
pt was carioverted from 160's shocked and went in the low 120's a fib
--- NOTE | 2025-05-09 14:10 | PC.NURSE ---
Pt was transferred to ICU @ 1125 pt is unstable
[2025-05-09] MEDS: PIPER/TAZO INJ 4.5 GM in SODIUM CHLORIDE 0.9% (POP) 100 ML IV ×2 (14:13→21:00)
--- NOTE | 2025-05-09 17:16 | PC.NURSE ---
Pt was a [employer] called at 1101 for HR in the 30's pt was ashcristian wrote on white board that he could not breathe. Pt was given atropine, calcium chloride and temporary paced. Pt was transferred to ICU. Pt was unstable x-ray done and pt got a bronchoscopy and cardioverted. Pt is in ICU room 258 will continue to monitor pt.
--- NOTE | 2025-05-09 20:36 | ESCONSULT_ITS ---
HPI Data of Consult Requesting Physician: Julius Turcios DO Admitting Provider: Tres Magana MD Attending Provider: Julius Turcios DO Primary Care Provider: Physician No Primary/Family Consult Narrative History of present illness: Patient is a 64-year-old male, Hoahaoism with a past medical history of hypertension, diabetes mellitus type 2, history of atrial fibrillation, CHF HFpEF 65%, grade 3 diastolic dysfunction, right heart failure, RSVP 47, moderate to severe ALB calsifications with no stenosis, status post tracheostomy, s/p PEG Tube at [facility], bariatric team, history of dyspahagia, extensive decubitus ulcers, CKD, history of anemia, history of Diego-en- Y gastric bypass, BASIA/OHS, and morbid obesity. Patient has an extensive inpatient history. Patient initially admitted February 27, 2025 secondary to shock, likely cardiogenic in nature and failed extubations secondary to hypercapnic encephalopathy and failed swallow. Patient eventually required tracheostomy secondary to respiratory failure. Patient required Jejunostomy, and transferred to [facility] secondary to past medical history of gastric bypass and abdominal abscess treated. Patient was once again upgraded for third time to ICU on 05/09/2025 secondary to complete heart block. Patient required pacing and atropine x 2 given. Patient then went into atrial fibrillation with RVR requiring cardioversion. Patient currently remains in ICU on phenylephrine drip with a current dose of 0.1 mcg/kg/min. Zosyn on board. Base of care conversation with family including paternal parent and maternal parent. This is patient's only surviving son. 05/09/2025: ICU consulted secondary to shock, likely cardiogenic in nature secondary to complete heart block and then covered to Atrial Fibrillation w/ rvr hemodynamically unstable. Cardiology consulted given complete heart block. Past Medical History: HTN Diabetes Mellitus Type 2 Paroxoysmal Atrial Fibrillation history of complete heart block (05/09/2025) CHF HFpEF 65%, right heart failure, diastolic dysfunction extensive decubitus ulcers CKD anemia BASIA/OHS Morbid Obesity history of dysphagia s/p tracheostomy and Jejunostomy history of abdominal abscess Medication: Metoprolol xl Amlodipine Losartan Metfomrin Glipizide gabapentin Past Surgical History [facility], Bariatric Team Diego-en Y gastric bypass Tracheostomy (03/2025) Jejunostomy cc:: cc: Julius Turcios, Review of Systems Review of Systems Narrative Review of Systems: General appearance: NO weight change, NO fatigue, NO weakness, NO fever, NO chills, NO night sweats, No cough Skin: NO rash, NO itching, NO sores, NO moles HEENT: NO Trauma, NO nausea, NO vomiting, NO visual changes, NO blurry vision, NO double vision, NO tinnitus, NO vertigo, NO ear discharge, NO rhinorrhea, NO stuffiness, NO sneezing, NO allergy, NO epistaxis. NO Hoarseness, NO sore throat, NO swollen neck. Cardiac: NO Palpitations, NO dyspnea on exertion, NO orthopnea, NO paroxysmal nocturnal dyspnea, NO edema Respiratory: NO Shortness of Breath, NO Wheezing, NO Cough, NO Sputum, NO hemoptysis GI:NO appetite, NO nausea, NO vomiting, NO dysphagia, NO changes in bowel frequency, NO stool color, NO diarrhea, NO constipation, NO hemetemesis, NO hemorrhoids, NO melena, NO hematechezia, NO abdominal pain, NO jaundice Renal: NO frequency, NO hesitancy, NO urgency, NO hematuria, NO nocturia, NO incontinence MSK: NO muscle weakness, NO gout, NO arthritis, NO muscle stiffness Neuro: NO headaches, NO tremors, NO weakness, NO paralysis, NO seizures, NO loss of consciousness, NO numbness. Hem: NO anemia, NO easy bruising/bleeding, NO petechiae, NO purpura Endo: NO heat/cold intolerance, NO excessive sweating, NO polyuria, NO polydipsia, NO polyphagia, NO thyroid problems, NO diabetes Pysch: NO mood, NO anxiety, NO depression Exam Vital Signs Temp Pulse Resp BP Pulse Ox O2 Del Method O2 Flow Rate 99.1 F 104 H 23 H 95/68 97 Mechanical Ventilation 12 05/09/25 20:00 05/09/25 20:30 05/09/25 20:30 05/09/25 20:30 05/09/25 20:30 05/09/25 08:00 05/09/25 08:00 FiO2 75 05/09/25 18:16 Narrative Exam General Appearance: Alert & Oriented X1, well-nourished male who is lying in bed in no acute distress. Extensive decubitus ulcers. HEENT: Skull symmetrical and atraumatic. Conjunctivae pale pink and moist. Pupils equal, round, reactive to light and accommodation (PERRL). Tracheostomy noted Cardio: Normal Rate and Rhythm with S1 and S2 heart sounds. No murmurs or extra heart sounds auscultated. No bruits on carotid auscultation. No peripheral edema or cyanosis. Lungs: Symmetric expansion. Reduced vesicular breath sounds, secondary to body habitus Abdomen: Non-tender, Non-distended, Normal Reactive Bowel Sounds Neuro: Yes Alert, NO cooperative, Yes oriented to person, No place, and NO time. Speech Not clear. CN grossly intact. Upper motor strength 5/5 and Lower motor strength 5/5. Sensation intact, withdrawls from painful stimuli. Results Labs 05/10/25 04:27 05/10/25 04:27 Labs: Short CBC 05/09/25 05/09/25 Range/Units 04:21 11:30 WBC 24.6 H D 21.5 H (3.8-10.6) Thou/mm3 Hgb 7.5 L 7.2 L (13.5-16.0) g/dL Hct 23.8 L 22.3 L (41.0-53.0) % Plt Count 355 339 (140-440) Thou/mm3 BMP 05/09/25 05/09/25 04:21 11:30 Sodium 142 140 Potassium 4.7 4.7 Chloride 99 100 Carbon Dioxide 32.9 H 30.6 BUN 107 H* 105 H* Creatinine 3.0 H 2.9 H Glucose 148 H 145 H Calcium 9.0 9.2 Cardiac Enzymes 05/09/25 Range/Units 11:30 Troponin I < 0.020 (0.0-0.045) ng/mL Liver Function 05/09/25 05/09/25 Range/Units 04:21 11:30 Total Bilirubin 0.4 0.4 (0.3-1.2) mg/dL AST 16 20 (0-34) U/L ALT < 7 L 7 L (10-49) U/L Alkaline Phosphatase 167 H D 165 H (46-116) U/L Albumin 3.3 L 3.2 L (3.4-4.8) gm/dL ABG Interpretation ABG results: 04/18/25 04/18/25 04/18/25 04:40 06:27 10:30 ABG pH 7.28 L 7.33 L 7.36 ABG pCO2 72 H* 67 H 61 H ABG pO2 132 H 60 L D 60 L ABG HCO3 34 H 35 H 34 H ABG O2 Saturation 100 H 93 93 ABG Base Excess 6 H 7 H 8 H 04/19/25 08:53 ABG pH 7.47 H D ABG pCO2 45 D ABG pO2 66 L ABG HCO3 33 H ABG O2 Saturation 96 ABG Base Excess 8 H Quality Measures Quality Measures VTE therapy Advance care planning discussed with:: patient Medications Home Medications and Allergies Home Medications ?Medication ?Instructions ?Recorded ?Confirmed ?Type amlodipine 10 mg tablet 10 mg PO 1XD 02/27/25 History gabapentin 600 mg tablet 600 mg PO 3XD 02/27/2504/13 History glipizide 10 mg tablet 10 mg PO 1XD 02/27/25 History losartan 25 mg tablet 25 mg PO 1XD 02/27/25 History metformin 1,000 mg tablet 1,000 mg PO 2XD 02/27/25 History metoprolol succinate 100 mg 100 mg PO 2XD 02/27/25 History tablet,extended release 24 hr tramadol 50 mg tablet 50 mg PO 3XD 02/27/25 History Allergies Allergy/AdvReac Type Severity Reaction Status Date / Time No Known Allergies Allergy Verified 02/27/25 06:45 Visit Medications Acetaminophen (Acetaminophen 325 Mg Tablet) 650 mg PO Q6HR PRN PRN Reason: pain 1-3 OR Fever >100.4 Stop: 05/22/25 20:42 Last Admin: 05/06/25 07:14 Dose: 650 mg Hydrocodone Bitart/Acetaminophen (Hydrocodone/Apap 5/325 Tablet) 1 tab PO Q8HR PRN PRN Reason: PAIN SCALE 4-10(Mod-Sev Stop: 05/11/25 08:22 Last Admin: 05/08/25 11:45 Dose: 1 tab Amiodarone HCl (Amiodarone Hcl 200 Mg Tablet) 200 mg GT QDAY [facility] Stop: 05/13/25 08:59 Last Admin: 05/09/25 09:30 Dose: 200 mg Amlodipine Besylate (Amlodipine Besylate 5 Mg Tablet) 10 mg GT QDAY [facility] Stop: 05/13/25 08:59 Last Admin: 05/04/25 09:39 Dose: Not Given Artificial Tears (Artificial Tears 225 Drop/15 Ml Btl) 0 drop BOTH EYES PRN PRN PRN Reason: TO KEEP EYES MOIST Stop: 05/14/25 19:32 Last Admin: 05/07/25 20:31 Dose: 1 drop Ascorbic Acid (Ascorbic Acid 250 Mg Tablet) 500 mg GT BID [facility] Stop: 05/17/25 20:59 Last Admin: 05/09/25 09:30 Dose: 500 mg Bumetanide (Bumetanide Inj 0.25 Mg/Ml Vial 4 Ml) 2 mg IVP BIDD [facility] Stop: 05/21/25 08:59 Last Admin: 05/04/25 05:31 Dose: 2 mg Dextrose (Dextrose 50%-Water Inj 50 Ml Syringe) 25 ml IV Q15MIN PRN PRN Reason: BG 50-70 responsive npo pt Stop: 05/12/25 23:31 Last Admin: 04/24/25 05:27 Dose: 25 ml Dextrose (Dextrose 50%-Water Inj 50 Ml Syringe) 50 ml IV Q15MIN PRN PRN Reason: BG <50 OR BG <70 & pt unresponsive Stop: 05/12/25 23:31 Glucagon (Glucagon Inj 1 Mg Vial) 1 mg IM Q15MIN PRN PRN Reason: BG <70, and no IV access Albumin Human (Albuminar-25 Ivpb) 25 gm in 100 mls @ 100 mls/min IV PRN PRN PRN Reason: DIALYSIS Piperacillin Sod/Tazobactam (Sod 4.5 gm/ Sodium Chloride) 100 mls @ 25 mls/hr IV Q8HR [facility]; Protocol Stop: 05/16/25 13:02 Last Admin: 05/09/25 14:13 Dose: 25 mls/hr Phenylephrine HCl 40 mg/ (Sodium Chloride) 100 mls @ 2.955 mls/hr IV .Q24H PRN; Protocol PRN Reason: Per Cardiogenic Protocol Stop: 06/08/25 13:23 Last Titration: 05/09/25 20:00 Dose: 0.1 mcg/kg/min, 2.955 mls/hr Norepinephrine/Dextrose (Levophed In D5w 8mg/250ml) 8 mg in 250 mls @ 18.469 mls/hr IV .[id number] PRN; Protocol PRN Reason: PER PROTOCOL Stop: 06/08/25 13:32 Fentanyl Citrate (Sublimaze Inj 2,500 Mcg/250 Ml Bag) 2,500 mcg in 250 mls @ 2.5 mls/hr IV .Q24H PRN; Protocol PRN Reason: PER PROTOCOL Stop: 05/14/25 15:04 Insulin Glargine (Insulin Glargine (Lantus) 5 Unit/0.05 Ml (Per 5 Units)) 38 unit SC QDAY [facility] Stop: 05/13/25 08:59 Last Admin: 05/09/25 09:15 Dose: 38 unit Insulin Human Lispro (Insulin Lispro (Admelog) 1 Unit/0.01 Ml Unit) 0 unit SC Q6HR [facility]; Protocol Stop: 05/13/25 00:00 Last Admin: 05/09/25 17:39 Dose: Not Given Lansoprazole (Lansoprazole 30 Mg Tab.Rap) 30 mg GT QDAY [facility] Stop: 06/04/25 08:59 Last Admin: 05/09/25 09:30 Dose: 30 mg Midazolam HCl (Midazolam Inj 1 Mg/Ml Vial 2 Ml) 2 mg IVP Q2HR PRN PRN Reason: AGITATION OR PAIN Stop: 05/14/25 15:59 Ondansetron HCl (Ondansetron Inj 2 Mg/Ml Inj 2 Ml) 4 mg IVP Q6H PRN; Protocol PRN Reason: NAUSEA OR VOMITING Stop: 05/12/25 23:26 Last Admin: 04/17/25 05:28 Dose: 4 mg Pharmacy Consult (Pharmacy Renal Dose Adjustment 1 Ea) 1 each XX PRN PRN PRN Reason: CONSULT Stop: 05/24/25 08:42 Pharmacy Consult (Vancomycin Pharmacy To Dose 1 Each Each) 1 each IV QDAY PRN PRN Reason: PROTOCOL Stop: 06/08/25 13:14 Polyethylene Glycol (Polyethylene Glycol 17 Gm Packet) 34 gm GT QDAY [facility] Stop: 06/01/25 08:59 Last Admin: 05/09/25 10:33 Dose: 34 gm Sennosides (Senna Tablet) 2 tab GT QDAY [facility]; Protocol Stop: 06/01/25 08:59 Last Admin: 05/09/25 09:30 Dose: 2 tab Sodium Hypochlorite (Sod Hypochlorite 1/4 Str 473 Ml Btl) 473 ml IRRIG BID [facility] Stop: 06/05/25 20:59 Last Admin: 05/09/25 10:51 Dose: 473 ml Zinc Sulfate (Zinc Sulfate 220 Mg Capsule) 220 mg GT QDAY [facility] Stop: 05/18/25 08:59 Last Admin: 05/09/25 09:30 Dose: 220 mg Discontinued Medications Acetaminophen (Acetaminophen 325 Mg Tablet) 650 mg PO Q6HR PRN PRN Reason: pain and Fever >100.4 Stop: 05/22/25 20:42 Last Admin: 04/22/25 20:52 Dose: 650 mg Hydrocodone Bitart/Acetaminophen (Hydrocodone/Apap 5/325 Tablet) 1 tab GT Q4HR PRN PRN Reason: PAIN SCALE 4-10(Mod-Sev Stop: 04/17/25 23:26 Last Admin: 04/14/25 20:25 Dose: 1 tab Hydrocodone Bitart/Acetaminophen (Hydrocodone/Apap 5/325 Tablet) 1 tab PO Q6HR PRN PRN Reason: PAIN SCALE 4-10(Mod-Sev Stop: 05/05/25 02:05 Last Admin: 05/02/25 03:27 Dose: 1 tab Albuterol/Ipratropium (Albuterol/Ipratropium (Duoneb) Rt Gloria 3 Ml Nebu) 3 ml INH X1 ONE Stop: 04/18/25 04:26 Last Admin: 04/18/25 04:46 Dose: 3 ml Atropine Sulfate (Atropine Sulf Inj 0.1 Mg/Ml Syr 10 Ml) 1 mg IVP X1 ONE Stop: 05/09/25 11:13 Last Admin: 05/09/25 11:14 Dose: 1 mg Atropine Sulfate (Atropine Sulf Inj 0.1 Mg/Ml Syr 10 Ml) 1 mg IV X1 ONE Stop: 05/09/25 11:01 Last Admin: 05/09/25 11:07 Dose: 1 mg Bumetanide (Bumetanide Inj 0.25 Mg/Ml Vial 4 Ml) 2 mg IVP QDAY [facility] Stop: 05/13/25 08:59 Bumetanide (Bumetanide Inj 0.25 Mg/Ml Vial 4 Ml) 1 mg IVP X1 ONE Stop: 04/18/25 09:53 Last Admin: 04/18/25 12:23 Dose: 1 mg Calcium Chloride (Calcium Chloride 10% Inj 10 Ml Syrg) 10 ml IV X1 ONE Stop: 05/09/25 12:01 Last Admin: 05/09/25 11:06 Dose: 10 ml Collagenase (Collagenase Oint 30 Gm Tube) 0 gm TOP HS [facility] Stop: 05/15/25 20:59 Last Admin: 04/16/25 23:45 Dose: 1 applicatio Epoetin Rambo (Epoetin Rambo-Epbx Inj 10,000 Unit/Ml Vial (Non-Esrd)) 10,000 unit IV X1 ONE Stop: 04/26/25 10:01 Last Admin: 04/26/25 09:16 Dose: 10,000 unit Epoetin Rambo (Epoetin Rambo-Epbx Inj 10,000 Unit/Ml Vial (Esrd)) 10,000 unit SC X1 ONE Stop: 05/02/25 08:21 Last Admin: 05/02/25 10:20 Dose: 10,000 unit Epoetin Rambo (Epoetin Rambo-Epbx Inj 10,000 Unit/Ml Vial (Esrd)) 10,000 unit SC X1 ONE Stop: 05/06/25 08:20 Last Admin: 05/06/25 08:45 Dose: 10,000 unit Fentanyl Citrate (Fentanyl Cit Inj 50 Mcg/Ml Amp 2ml) 50 mcg IVP Q5MIN PRN PRN Reason: PAIN SCALE 4-10(Mod-Sev Stop: 04/29/25 16:08 Fentanyl Citrate (Fentanyl Cit Inj 50 Mcg/Ml Amp 2ml) 100 mcg IM X1 ONE Stop: 05/09/25 11:14 Last Admin: 05/09/25 11:21 Dose: 100 mcg Fentanyl Citrate (Fentanyl Cit Inj 50 Mcg/Ml Amp 2ml) 100 mcg IVP X1 ONE Stop: 05/09/25 12:08 Last Admin: 05/09/25 12:37 Dose: 100 mcg Fentanyl Citrate (Fentanyl Cit Inj 50 Mcg/Ml Amp 2ml) 50 mcg IVP X1 ONE Stop: 05/09/25 13:16 Last Admin: 05/09/25 13:55 Dose: 50 mcg Heparin Sodium (Porcine) (Heparin Sod Inj 5000 Unit/Ml Vial) 4,000 unit IV X1 ONE Stop: 04/13/25 10:31 Last Admin: 04/13/25 10:35 Dose: 4,000 unit Heparin Sodium (Porcine) (Heparin Sod Inj 1000 Unit/Ml Vial 10 Ml) 3,000 unit INDWELLCAT PRN PRN PRN Reason: DIALYSIS Stop: 05/08/25 13:45 Last Admin: 04/29/25 11:04 Dose: 3,000 unit Heparin Sodium (Porcine) (Heparin Sod Inj 5000 Unit/Ml Vial) 5,000 unit SC Q8HR [facility] Stop: 04/27/25 09:46 Last Admin: 04/27/25 05:23 Dose: 5,000 unit Heparin Sodium (Porcine) (Heparin Sod Inj 5000 Unit/Ml Vial) 4,000 unit IVP X1 ONE Stop: 04/27/25 20:05 Last Admin: 04/27/25 20:43 Dose: 4,000 unit Heparin Sodium (Porcine) (Heparin Sod Inj 5000 Unit/Ml Vial) 8,000 unit IVP X1 ONE Stop: 04/29/25 16:31 Last Admin: 04/29/25 16:33 Dose: 8,000 unit Heparin Sodium (Porcine) (Heparin Sod Inj 5000 Unit/Ml Vial) 4,000 unit IVP X1 ONE Stop: 04/30/25 06:35 Last Admin: 04/30/25 07:23 Dose: 4,000 unit Heparin Sodium (Porcine) (Heparin Sod Inj 5000 Unit/Ml Vial) 8,050 unit 40 unit/kg (8050 unit) IV X1 ONE Stop: 04/30/25 15:21 Last Admin: 04/30/25 19:09 Dose: Not Given Heparin Sodium (Porcine) (Heparin Sod Inj 5000 Unit/Ml Vial) 4,000 unit IV X1 ONE Stop: 04/30/25 15:25 Last Admin: 04/30/25 15:36 Dose: 4,000 unit Hydromorphone HCl (Hydromorphone Inj 2 Mg/Ml Vial) 0.25 mg IVP X1 ONE Stop: 04/29/25 18:37 Last Admin: 04/29/25 18:44 Dose: 0.25 mg Heparin Sodium/Dextrose (Heparin In D5w Ivpb) 25,000 unit in 250 mls @ 17.986 mls/hr IV .[id number] [facility]; Protocol Stop: 04/26/25 23:44 Last Titration: 04/19/25 00:00 Dose: 11.13 units/kg/hr, 21.926 mls/hr Sodium Chloride (Ns) 500 mls @ 999 mls/hr IV .Q31M ONE Stop: 04/13/25 12:49 Last Infusion: 04/13/25 23:38 Dose: Infused Cefepime HCl 2 gm/ Sodium (Chloride) 50 mls @ 100 mls/hr IV Q8HR [facility] Stop: 04/20/25 13:07 Last Admin: 04/18/25 05:19 Dose: 100 mls/hr Metronidazole (Flagyl 500 Mg Iv) 500 mg in 100 mls @ 200 mls/hr IV Q8HR [facility] Stop: 04/20/25 13:08 Last Infusion: 04/20/25 06:21 Dose: Infused Ceftriaxone Sodium/Dextrose (Rocephin/D5w 1gm Iv Premix) 1 gm in 50 mls @ 100 mls/hr IV QDAY [facility] Stop: 04/25/25 09:47 Last Admin: 04/23/25 08:42 Dose: 100 mls/hr Lactated Ringer's (Lactated Ringers) 500 mls @ 999 mls/hr IV .Q31M ONE Stop: 04/19/25 10:30 Last Admin: 04/19/25 12:07 Dose: Not Given Lactated Ringer's (Lactated Ringers) 500 mls @ 999 mls/hr IV .Q31M ONE Stop: 04/19/25 12:30 Last Admin: 04/19/25 11:59 Dose: 999 mls/hr Albumin Human (Albuminar-25 Ivpb) 25 gm in 100 mls @ 100 mls/hr IV BID [facility] Stop: 04/23/25 08:59 Last Admin: 04/22/25 20:32 Dose: 100 mls/hr Acetazolamide Sodium 500 mg/ (Sodium Chloride) 50 mls @ 100 mls/hr IV X1 ONE Stop: 04/22/25 10:58 Last Admin: 04/22/25 11:52 Dose: 100 mls/hr Heparin Sodium/Dextrose (Heparin In D5w Ivpb) 25,000 unit in 250 mls @ 18 mls/hr IV .[id number] [facility]; Protocol Stop: 05/11/25 09:59 Last Titration: 04/29/25 06:45 Dose: 0 units/kg/hr, 0 mls/hr Heparin Sodium/Dextrose (Heparin In D5w Ivpb) 25,000 unit in 250 mls @ 22.085 mls/hr IV .[id number] [facility]; Protocol Stop: 05/13/25 16:29 Last Admin: 05/02/25 13:27 Dose: 11.8 units/kg/hr, 24.086 mls/hr Lactated Ringer's (Lactated Ringers) 1,000 mls @ 999 mls/hr IV .Q1H1M ONE Stop: 05/02/25 02:58 Last Admin: 05/07/25 19:39 Dose: Not Given Lactated Ringer's (Lactated Ringers) 1,000 mls @ 150 mls/hr IV .Q6H40M ONE Stop: 05/02/25 08:37 Last Admin: 05/07/25 19:39 Dose: Not Given Lactated Ringer's (Lactated Ringers) 500 mls @ 150 mls/hr IV .Q3H20M ONE Stop: 05/02/25 05:18 Last Admin: 05/02/25 01:54 Dose: 150 mls/hr Ferumoxytol 510 mg/ Sodium (Chloride) 117 mls @ 234 mls/hr IV X1 ONE Stop: 05/02/25 08:16 Last Admin: 05/02/25 08:45 Dose: 234 mls/hr Ferumoxytol 510 mg/ Sodium (Chloride) 117 mls @ 234 mls/hr IV .Q30M ONE Stop: 05/06/25 08:59 Last Admin: 05/06/25 10:43 Dose: 234 mls/hr Calcium Gluconate/Sodium Chloride (Calcium Gluc/Ns 1000mg Ivpb) 1 gm in 50 mls @ 50 mls/hr IV X1 ONE Stop: 05/09/25 12:29 Last Admin: 05/09/25 11:59 Dose: Not Given Dopamine HCl/Dextrose (Intropin In D5w Ivpb) 400 mg in 250 mls @ 36.938 mls/hr IV .Q6H47M [facility]; Protocol Stop: 06/08/25 11:35 Last Titration: 05/09/25 13:15 Dose: 0 mcg/kg/min, 0 mls/hr Norepinephrine/Dextrose (Levophed In D5w 8mg/250ml) 8 mg in 250 mls @ 18.469 mls/hr IV .[id number] PRN; Protocol PRN Reason: PER PROTOCOL Stop: 06/08/25 13:04 Vancomycin HCl 2,000 mg/ (Sodium Chloride) 500 mls @ 150 mls/hr IV X1 ONE Stop: 05/09/25 17:19 Last Admin: 05/09/25 13:42 Dose: 10 mg/min, 150 mls/hr Dopamine HCl/Dextrose (Intropin In D5w Ivpb) 400 mg in 250 mls @ 36.938 mls/hr IV .Q6H47M [facility]; Protocol Stop: 06/08/25 13:44 Last Admin: 05/09/25 15:19 Dose: Not Given Lansoprazole (Lansoprazole 30 Mg Tab.Rap.Dr) 30 mg GT BID [facility] Stop: 05/13/25 08:59 Last Admin: 05/04/25 20:25 Dose: 30 mg Lidocaine HCl (Lidocaine Hcl 1% 20 Ml Vial) 10 ml IM X1 ONE Stop: 05/09/25 12:38 Last Admin: 05/09/25 12:38 Dose: 10 ml Losartan Potassium (Losartan Potassium 25 Mg Tablet) 25 mg GT QDAY [facility] Stop: 05/13/25 08:59 Metoprolol Succinate (Metoprolol Succinate Xl 25 Mg Tabcr) 100 mg GT BID [facility] Stop: 05/13/25 08:59 Last Admin: 04/17/25 09:00 Dose: Not Given Metoprolol Tartrate (Metoprolol Tartrate 25 Mg Tablet) 100 mg GT BID [facility] Stop: 05/17/25 10:14 Last Admin: 05/04/25 09:40 Dose: Not Given Metoprolol Tartrate (Metoprolol Tartrate Inj 1 Mg/Ml Amp 5 Ml) 1 mg IVP Q5MIN PRN PRN Reason: TACHYCARDIA Stop: 04/29/25 16:08 Midazolam HCl (Midazolam Inj 1 Mg/Ml Vial 2 Ml) 4 mg IVP X1 ONE Stop: 04/24/25 10:16 Last Admin: 04/24/25 10:30 Dose: 4 mg Midazolam HCl (Midazolam Inj 1 Mg/Ml Vial 2 Ml) 1 mg IVP Q5MIN PRN PRN Reason: ANXIETY Stop: 04/29/25 16:08 Midazolam HCl (Midazolam Inj 1 Mg/Ml Vial 2 Ml) 4 mg IVP X1 ONE Stop: 05/09/25 11:22 Last Admin: 05/09/25 11:34 Dose: 4 mg Midazolam HCl (Midazolam Inj 1 Mg/Ml Vial 2 Ml) 4 mg IVP X1 ONE Stop: 05/09/25 12:08 Last Admin: 05/09/25 12:38 Dose: 3 mg Midazolam HCl (Midazolam Inj 1 Mg/Ml Vial 2 Ml) 2 mg IVP Q2HR [facility] Stop: 05/14/25 15:59 Pantoprazole Sodium (Pantoprazole 40 Mg Tablet) 40 mg PO Q12HR [facility] Stop: 05/13/25 08:59 Last Admin: 04/14/25 08:38 Dose: 40 mg Polyethylene Glycol (Polyethylene Glycol 17 Gm Packet) 34 gm PO QDAY [facility] Stop: 06/01/25 08:59 Rivaroxaban (Rivaroxaban 10 Mg Tablet) 20 mg PO QDAY [facility] Stop: 05/10/25 08:59 Last Admin: 04/24/25 21:19 Dose: Not Given Sennosides (Senna Tablet) 2 tab PO QDAY [facility]; Protocol Stop: 06/01/25 08:59 Silver Nitrate (Silver Nitrate 1 Appl Ea) 1 appl TOP X1 ONE Stop: 04/17/25 11:19 Last Admin: 04/17/25 11:18 Dose: Not Given Silver Nitrate (Silver Nitrate 1 Appl Ea) 1 appl TOP X1 ONE Stop: 05/02/25 18:57 Last Admin: 05/07/25 19:40 Dose: Not Given Sodium Chloride (Sodium Cl Irrig Soln 1,000 Ml Bag) 0 ml IRRIG QDAY [facility] Stop: 05/31/25 09:14 Last Admin: 05/02/25 10:19 Dose: Not Given Sodium Hypochlorite (Sod Hypochlorite 1/4 Str 473 Ml Btl) 473 ml IRRIG HS [facility] Stop: 05/15/25 20:59 Last Admin: 04/28/25 21:45 Dose: 1 applicatio Sodium Polystyrene Sulfonate (Sod Polystyrene Sulfon Susp 15 Gm/60 Ml Btl) 30 gm PO X1 ONE Stop: 04/21/25 23:45 Last Admin: 04/22/25 00:09 Dose: 30 gm Tuberculin PPD (Tuberculin Ppd Inj 5 Unit/0.1 Ml Dose) 5 unit ID X1 ONE Stop: 04/25/25 09:03 Last Admin: 04/25/25 11:46 Dose: 5 unit Assessment & Plan Plan Patient is a 64-year-old male, Hoahaoism with a past medical history of hypertension, diabetes mellitus type 2, history of atrial fibrillation, CHF HFpEF 65%, grade 3 diastolic dysfunction, right heart failure, RSVP 47, moderate to severe ALB calsifications with no stenosis, status post tracheostomy, s/p PEG Tube at [facility], bariatric team, history of dyspahagia, extensive decubitus ulcers, CKD, history of anemia, history of Diego-en- Y gastric bypass, BASIA/OHS, and morbid obesity. Patient was upgraded to ICU for a third time with in acute respiratory respiratory failure secondary to mucous plug and shock, likely cardiogenic shock secondary to complete heart block requiring pressors. #Goals of Care Cardiolgoy had goals of care discussion with family at beside in terms of overall poor prognosis given complete heart block and atrial fibrillition, CHF, and decubitus ulcer. # Bradycardia and questionable complete heart block #A-fib with RVR, hemodynamically unstable-cardioverted #Paroxysmal atrial fibrillation Patient was bradycardic earlier this morning along with hypoxic respiratory failure secondary to possible mucous plug which was removed after bronchoscopy. Patient reverted back into atrial fibrillation with RVR with unstable vitals requiring cardioversion. Shock possible multifactorial in the setting of hypoxic respiratory failure along with the bradycardia and underlying sepsis CHADVASC 3 Plan -Phynelephrine drip 0.1 mg/kg/min given the patient's history of atrial fibrillation. -given recent cardioversion, recommend heparin drip and then Xarelto - Previously Xarelto was being held in the setting of large decubitus ulcer- anticoagulation has been held. -continue to wean off as blood pressure permits -Amiodarone, holding off #Congestive heart failure #CHF HFpEF 65% #Diastolic dysfunction, grade 3 #Pulmonary hypertension #BASIA/OHS #Moderate to severe a AOV calcification with no stenosis #Moderat to Large Pleural Effusion Patient has a past medical history of right heart faillure, Diastolic dysfucntion, and HFpEF 65% likely in the setting of cardiomypoathy seconadary to morbid obesity form BASIA/OHS. Given Cxr noted with prominent vascular congestion, consider repeat BNP, although hemodynamically unstable given pressors but may consider. No pheriphearl edema noted. Patient's previous Dry weight: 197.9 & Dry BNP 135. Previous [place] [facility] 03/19/2025: RAP 8, PAP 27, PCWP 7. BNP____;current cathy/ght 197 Troponin 05/09/2025: <0.02 Cxr (05/09/2025): Mild Heart Failure, Prominent vascular congestion and Moderate to large right pleural effusion Echo (04/29/2025): Normal LV size and function. Estimated EF of 65%. Grade III Diastolic Dysfunction.Right ventricle is dilated with mild RV dysfunction RVSP 47mmHg. RAP 15mmHg.Severe biatrial dilation.Moderate to Severe AOV calcification with no stenosis <ild tricuspid regurgitation. No pericardial effusion. Plan -Bumex 2 mg IVP BID-currently on hold -Consider repeat TSH & BNP AM -Consider fluid resprictions given pleural effusion, prominent vascular congestion, and repeat BNP -Consider Fluid Restrictions -Consider repeat echo given complete heart block -K >4 and Mg >2 #Acute on Chronic Respiratory Failure secondary to mucos plug #Healthcare-Associated Pneumonia #Leukocytosis Patient noted to have acute on chronic respiratory failure, required bronchoscopy w/ mucos plugs removed. Previous sputum Pseudomnas (04/03/2025) Plan -Zosyn (05/09/2025) -Blood culture obtained -Bronchial washing MRSA negative #Large Sacrale Decubitus Ulcer s/p excisional debridement (05/02/2025) Recent debridement of large decubitus ulcer on 05/02/2025 likely secondary to morbid obestiy and lack of mobility. plan -Continue abnitbiotics in the setting of leukocytosis & Healthcare associated pneumonia #CKD stage III Patient previously noted to have an KENIA, likely intrinisc per chart review previously had been noted to have worsening BUN now 105 and Cr 2.9. Plan -Continue to monitor BUN Cr -Consider fluid restrictions in setting of CHF history. #Jejunostomy #history of abdominal abscess s/p percutaneous drainage Plan -Tube feedings currently held #Diabetes Mellitus Type 2 non insulin depedent Patient has past medical history of diabetes mellitus type 2 non insulin depent but since admsision, in february 2025, patient has been started on insulin. Patinents fasting glucose has been less than 180. A1c (03/05/2025): 7.6% #Normocytic Anemia History of normocytic anemia likely secondayr to anemia of chronic disease vs blood loss secondary to large decubitus ulcer. 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 DVT ppx: SCDs GI ppx: Protonix 40mg qD Mechanical ventilattion: Yes, Mode: ACVC VT 500, RR 20, PEEP 8, FiO2 75%no Sedation: Yes, Fentanyl (CPOT 0-1)-currenlty not given IV lines: 2 pIV Central line: No Arterial line: No Fuller: No Code status: FULL CODE - The patient's plan was discussed with attending Dr. Brooklyn Esquivel MD PGY1 Internal Medicine Attending Provider Attestation/Addendum I have personally seen and examined the patient separately on the above date of service and discussed the plan of care with the resident. I reviewed the resident Dr. Mery Esquivel consultation progress note and agree with the resident findings and plan in the note above and have also edited the documentation to reflect my findings and plan. Cardiology was consulted today for significant bradycardia quiring external temporary transcutaneous pacing. Patient was also hypoxic and was transferred to the ICU. Plan was to place a temporary transvenous pacemaker if the patient continues to be bradycardic as he was 100% dependent on the transcutaneous pacing. Bronchoscopy was performed which showed small mucous plug which was removed and patient rhythm was back to his atrial fibrillation with RVR. Patient was on dopamine at that point of time. Patient blood pressure was on the lower side and was unstable and required cardioversion x 1. Dopamine drip was stopped along with Levophed and recommended patient to be placed on phenylephrine drip given the history of the atrial fibrillation with RVR. Continue amiodarone for now for rate control no beta-blockers or calcium channel blockers secondary to the hypotension. EF is preserved on the last echocardiogram. Patient vital signs stabilized after the fentanyl and Afrin drip and rate is now controlled between 70 to 90 bpm. Patient has multiple comorbidities as mentioned above and his prolonged hospitalization. He has a significantly large decubitus ulcers which is also contributing to the sepsis and apparently worsening since his admission. Patient is presently ventilator dependent and has a tracheostomy in place along with a jejunostomy. Discussed with the family about his present diagnosis, treatment plan and also discussed with them the goals of care. Discussed with the family regarding the prolonged hospitalization, his multiple comorbidities and the unhealing decubitus ulcer with minimal improvement and family is also going to speak about the goals of care with the primary team. Kobe Barahona M.D. Interventional Cardiology
[2025-05-10] VITALS (109 sets, daily range): BP systolic 79–117; BP diastolic 53–81; PULSE 42–120; RESP 9–46; TEMP 36.3–36.8; O2SAT 87–100
[2025-05-10] MEDS: PIPER/TAZO INJ 4.5 GM in SODIUM CHLORIDE 0.9% (POP) 100 ML IV ×3 (05:21→21:15)
[2025-05-10 05:35] LABS: Basophils # (Auto) 0.1 Thou/mm3 (0.0-0.2); Basophils % (Auto) 0 % (0-2.5); Eosinophils # (Auto) 0.1 Thou/mm3 (0.0-0.5); Eosinophils % (Auto) 1 % (0-10); Hematocrit 23.7 % (41.0-53.0); Immature Granulocytes Auto 0.09 Thou/mm3 (0.00-0.00); Lymphocytes # (Auto) 3.7 Thou/mm3 (1.0-4.8); Lymphocytes % (Auto) 20 % (10-50); Mean Corpuscular HGB Conc 31.2 g/dl (31.0-37.0); Mean Corpuscular Hemoglobin 29.0 pg (25.0-35.0); Mean Corpuscular Volume 93 fL (80-100); Monocytes # (Auto) 2.0 Thou/mm3 (0.0-0.8); Monocytes % (Auto) 11 % (0-12); Neutrophils # (Auto) 12.6 Thou/mm3 (1.8-7.7); Neutrophils % (Auto) 68 % (37-80); Nucleated Red Blood Cell # 0.00 Thou/mm3 (0.00-0.00); Nucleated Red Blood Cell % 0 /100 WBC (0); Platelet Count 402 Thou/mm3 (140-440); RDW Standard Deviation 61.2 fL (35.1-43.9); Red Blood Count 2.55 Miln/mm3 (4.50-5.90); White Blood Count 18.5 Thou/mm3 (3.8-10.6)
[2025-05-10 05:36] LABS: Hemoglobin 7.4 g/dL (13.5-16.0)
[2025-05-10 06:08] LABS: Alanine Aminotransferase 10 U/L (10-49); Albumin, Serum 3.2 gm/dL (3.4-4.8); Albumin/Globulin Ratio 1.1 (1.2-2.2); Alkaline Phosphatase 160 U/L (46-116); Anion Gap 10 (7-16); Aspartate Amino Transferase 34 U/L (0-34); BUN/Creatinine Ratio 36 Ratio (12-20); Bilirubin,Total 0.5 mg/dL (0.3-1.2); Calcium 9.0 mg/dL (8.3-10.6); Calcium (Corrected) 9.6 mg/dL (8.5-10.1); Carbon Dioxide 32.3 mMol/L (20.0-31.0); Chloride 101 mMol/L (98-107); Creatinine (Component) 2.9 mg/dL (0.6-1.3); Estimated Creatinine Clearance 42.1 mL/min (>60); Globulin 2.8 gm/dL (2.3-3.5); Glucose 99 mg/dL (74-106); Magnesium 2.6 mg/dL (1.6-2.6); Osmolality,Calculated 317 (275-295); Phosphorous 3.6 mg/dL (2.4-5.1); Potassium 4.6 mMol/L (3.4-5.1); Sodium 143 mMol/L (136-145); Total Protein 6.0 gm/dL (5.7-8.2); Vancomycin,Random 13.1 mcg/mL; eGFR 23 See Note
[2025-05-10 06:09] LABS: Blood Urea Nitrogen 105 mg/dL (9-23)
--- NOTE | 2025-05-10 07:18 | ESPR_ITS ---
Documentation for date of: 05/10/25 Subjective Subjective Interval history: 64-year-old male with past medical history of DM2, hypertension, A-fib, and Jehova's witness was admitted to the ICU on 02/27/2025 for shock and acute hypoxic respiratory failure. During his hospitalization patient was intubated for more than a week and had to be transitioned to tracheostomy chronically. After extubation he developed dysphagia and was started on tube feeds via NG for nutrition needs, he needed PEG tube/IR jejunostomy tube placement for continued nutrition. The services were not available at our institution due to the wait limits of our IR and OR beds. Patient was transferred to [facility] for incision of jejunostomy tube for feeding, during his stay there a abdominal abscess was incidentally found and percutaneously drained, he was subsequently transferred back to [facility]. While in hospital he developed a stage III/IV sacral decubitus ulcer approximately 10 x 5 cm and had debridement and suturing done by general surgeon, Dr. Negron. Patient was in the process of being worked up for discharge to home with ventilator and tube feeds. 05/09/2025: This morning approximately 11 AM patient became bradycardic in the 30s after receiving his daily dose of amiodarone p.o. a VALIDATION CONSULTANT was called and calcium gluconate and calcium chloride were administered. Subsequently patient went into complete heart block and transcutaneous pacing was started, after patient went into A-fib with RVR [rates 150s] and blood pressure became unstable with maps in the 50s. Initially dobutamine infusion was started and then patient again went into A-fib with RVR and he received 1 round of electrical, synchronized cardioversion with 100 J. Patient remained in A-fib but rate now controlled. Subsequently dopamine infusion was stopped and patient started on low-dose phenylephrine. Patient was upgraded to the ICU for complete heart block s/p chemical and electrical cardioversion. 05/11/2025: Overnight patient was titrated off of phenylephrine. Input 312/output 400 cc in 24 hours. Weight 197 kg, dry weight 195 kg. This morning patient complains of upper back and shoulder pain, also pleuritic chest pain and taking deep breaths. Hb 7.4, HCT 23.7, BUN 105, CR 2.9, osmolality 270, pH 7.52, pCO2 40. EKG showed atrial fibrillation, rate 68. BAL Gram stain and culture pending. Blood culture from 05/09 pending. Currently patient on Zosyn 4.5 g IV Q6 hourly and vancomycin IV pharmacy to dose. Give 0.45 % NS 500 cc IVF bolus, started on DuoNebs every 8 hourly, Mucomyst every 8 hourly and chest physiotherapy for mucous congestion. On AC/VC, will attempt SBT tomorrow. Had goals of care discussion with patient today regarding extremely poor long-term prognosis, high risk of deterioration and switching CODE STATUS, patient wishes for more time to deliberate. Exam Vital Signs Temp Pulse Resp BP Pulse Ox O2 Del Method O2 Flow Rate 97.3 F 98 25 H 95/71 97 Mechanical Ventilation 12 05/10/25 04:01 05/10/25 06:00 05/10/25 06:00 05/10/25 06:00 05/10/25 06:00 05/10/25 04:01 05/09/25 08:00 FiO2 75 05/10/25 04:01 Narrative Exam Constitutional Alert, oriented x 3 and mild distress. Elderly male, morbidly obese, MM pale and dry HEENT Vision grossly intact. Patent nares. Trachea midline. Tracheostomy tube in situ, exit site clean. ACMV, VT 500, RR 22, PEEP 8, FiO2 50% Respiratory Chest normal on inspection and decreased air entry in all lung sims, transmitted sounds And congestion on anterior chest wall, middle and upper lobes. Cardiovascular S1 and S2 audible, RRR. No murmurs carotid bruit. No gross JVD. Abdominal Soft, obese and non tender to palpation in all quadrants. BS +. Jejunostomy tube in situ, exit site clean Genitourinary No bladder tenderness, no flank pain. Normal to palpation Musculoskeletal Extremities tone within normal limits. No LE edema. Neurological CN II - XII grossly intact. Extremity motor and sensation grossly intact. Skin Warm, dry and intact. 10 x 5 large sacral decubitus ulcer, necrotic tissue noted, easily friable. Sanguinous oozing Psychiatric Patient has good affect, is cooperative Objective Labs 05/10/25 04:27 05/10/25 15:10 Labs: Laboratory Results - last 24 hr 05/09/25 05/09/25 05/09/25 04:21 04:21 11:30 WBC 21.5 H RBC 2.46 L Hgb 7.2 L Hct 22.3 L MCV 91 MCH 29.3 MCHC 32.3 RDW Std Deviation 59.8 H Plt Count 339 Neut % (Auto) 63 Lymph % (Auto) 26 [place] % (Auto) 10 Eos % (Auto) 1 Baso % (Auto) 0 Neut # (Auto) 13.6 H Lymph # (Auto) 5.5 H [place] # (Auto) 2.1 H Eos # (Auto) 0.2 Baso # (Auto) 0.0 Immature Gran # (Auto) 0.11 H Absolute Nucleated RBC 0.00 Immature Gran % 1 H Nucleated RBC % 0 Sodium 142 140 Potassium 4.7 4.7 Chloride 99 100 Carbon Dioxide 32.9 H 30.6 Anion Gap 10 9 BUN 107 H* 105 H* Creatinine 3.0 H 2.9 H Estim Creat Clear Calc 40.7 L 42.1 L eGFR 22 L 23 L BUN/Creatinine Ratio 36 H 36 H Glucose 148 H 145 H Calculated Osmolality 319 H 315 H Lactic Acid 1.5 Calcium 9.0 9.2 Corrected Calcium 9.6 9.8 Phosphorus 3.8 Magnesium 2.7 H Total Bilirubin 0.4 0.4 AST 16 20 ALT < 7 L 7 L Alkaline Phosphatase 167 H D 165 H Troponin I < 0.020 Total Protein 6.0 5.8 Albumin 3.3 L 3.2 L Globulin 2.7 2.6 Albumin/Globulin Ratio 1.2 1.2 Procalcitonin Cancelled 2.97 H Random Vancomycin 05/10/25 04:27 WBC 18.5 H RBC 2.55 L Hgb 7.4 L Hct 23.7 L MCV 93 MCH 29.0 MCHC 31.2 RDW Std Deviation 61.2 H Plt Count 402 D Neut % (Auto) 68 Lymph % (Auto) 20 [place] % (Auto) 11 Eos % (Auto) 1 Baso % (Auto) 0 Neut # (Auto) 12.6 H Lymph # (Auto) 3.7 [place] # (Auto) 2.0 H Eos # (Auto) 0.1 Baso # (Auto) 0.1 Immature Gran # (Auto) 0.09 H Absolute Nucleated RBC 0.00 Immature Gran % 1 H Nucleated RBC % 0 Sodium 143 Potassium 4.6 Chloride 101 Carbon Dioxide 32.3 H Anion Gap 10 BUN 105 H* Creatinine 2.9 H Estim Creat Clear Calc 42.1 L eGFR 23 L BUN/Creatinine Ratio 36 H Glucose 99 Calculated Osmolality 317 H Lactic Acid Calcium 9.0 Corrected Calcium 9.6 Phosphorus 3.6 Magnesium 2.6 Total Bilirubin 0.5 AST 34 ALT 10 Alkaline Phosphatase 160 H Troponin I Total Protein 6.0 Albumin 3.2 L Globulin 2.8 Albumin/Globulin Ratio 1.1 L Procalcitonin Random Vancomycin 13.1 ABG Interpretation ABG results: 04/18/25 04/18/25 04/18/25 04:40 06:27 10:30 ABG pH 7.28 L 7.33 L 7.36 ABG pCO2 72 H* 67 H 61 H ABG pO2 132 H 60 L D 60 L ABG HCO3 34 H 35 H 34 H ABG O2 Saturation 100 H 93 93 ABG Base Excess 6 H 7 H 8 H 04/19/25 08:53 ABG pH 7.47 H D ABG pCO2 45 D ABG pO2 66 L ABG HCO3 33 H ABG O2 Saturation 96 ABG Base Excess 8 H Quality Measures Quality Measures VTE therapy Advance care planning discussed with:: patient Assessment & Plan Assessment Current Active Medications: Generic Name Dose Route Start Last Admin Trade Name Freq PRN Reason Stop Dose Admin Acetaminophen 650 mg 05/01/25 08:47 05/06/25 07:14 Acetaminophen 325 Mg Tablet PO 05/22/25 20:42 650 mg Q6HR PRN Administration pain 1-3 OR Fever >100.4 Hydrocodone Bitart/Acetaminophen 1 tab 05/06/25 08:23 05/08/25 11:45 Hydrocodone/Apap 5/325 Tablet PO 05/11/25 08:22 1 tab Q8HR PRN Administration PAIN SCALE 4-10(Mod-Sev Amiodarone HCl 200 mg 04/13/25 09:00 05/09/25 09:30 Amiodarone Hcl 200 Mg Tablet GT 05/13/25 08:59 200 mg QDAY KOURTNEY Administration Amlodipine Besylate 10 mg 04/13/25 09:00 05/04/25 09:39 Amlodipine Besylate 5 Mg Tablet GT 05/13/25 08:59 Not Given QDAY KOURTNEY Artificial Tears 0 drop 04/14/25 19:33 05/07/25 20:31 Artificial Tears 225 Drop/15 Ml Btl BOTH EYES 05/14/25 19:32 1 drop PRN PRN Administration TO KEEP EYES MOIST Ascorbic Acid 500 mg 04/17/25 21:00 05/09/25 20:56 Ascorbic Acid 250 Mg Tablet GT 05/17/25 20:59 500 mg BID KOURTNEY Administration Bumetanide 2 mg 04/21/25 09:00 05/04/25 05:31 Bumetanide Inj 0.25 Mg/Ml Vial 4 Ml IVP 05/21/25 08:59 2 mg BIDD KOURTNEY Administration Dextrose 25 ml 04/12/25 23:32 04/24/25 05:27 Dextrose 50%-Water Inj 50 Ml Syringe IV 05/12/25 23:31 25 ml Q15MIN PRN Administration BG 50-70 responsive npo pt Dextrose 50 ml 04/12/25 23:32 Dextrose 50%-Water Inj 50 Ml Syringe IV 05/12/25 23:31 Q15MIN PRN BG <50 OR BG <70 & pt unresponsive Glucagon 1 mg 04/12/25 23:32 Glucagon Inj 1 Mg Vial IM Q15MIN PRN BG <70, and no IV access Albumin Human 25 gm in 100 mls @ 100 mls/min 04/24/25 11:52 Albuminar-25 Ivpb IV PRN PRN DIALYSIS Piperacillin Sod/Tazobactam 100 mls @ 25 mls/hr 05/09/25 13:03 05/10/25 05:21 Sod 4.5 gm/ Sodium Chloride IV 05/16/25 13:02 25 mls/hr Q8HR KOURTNEY Administration Protocol Phenylephrine HCl 40 mg/ 100 mls @ 2.955 mls/hr 05/09/25 13:24 05/10/25 06:00 Sodium Chloride IV 06/08/25 13:23 0 mcg/kg/min .Q24H PRN 0 mls/hr Per Cardiogenic Protocol Titration Protocol 0.1 MCG/KG/MIN Norepinephrine/Dextrose 8 mg in 250 mls @ 18.469 mls/hr 05/09/25 13:33 Levophed In D5w 8mg/250ml IV 06/08/25 13:32 .[id number] PRN PER PROTOCOL Protocol 0.05 MCG/KG/MIN Fentanyl Citrate 2,500 mcg in 250 mls @ 2.5 mls/hr 05/09/25 15:05 Sublimaze Inj 2,500 Mcg/250 Ml Bag IV 05/14/25 15:04 .Q24H PRN PER PROTOCOL Protocol 25 MCG/HR Vancomycin HCl 250 mls @ 120 mls/hr 05/10/25 10:00 Vancomycin/Water 1250 Mg Ivpb IV 05/10/25 12:04 X1 ONE Insulin Glargine 38 unit 04/13/25 09:00 05/09/25 09:15 Insulin Glargine (Lantus) 5 Unit/0.05 Ml (Per 5 Units) SC 05/13/25 08:59 38 unit QDAY KOURTNEY Administration Insulin Human Lispro 0 unit 04/13/25 00:00 05/10/25 05:20 Insulin Lispro (Admelog) 1 Unit/0.01 Ml Unit SC 05/13/25 00:00 Not Given Q6HR KOURTNEY Protocol Lansoprazole 30 mg 05/05/25 09:00 05/09/25 09:30 Lansoprazole 30 Mg Tab GT 06/04/25 08:59 30 mg QDAY KOURTNEY Administration Midazolam HCl 2 mg 05/09/25 15:09 Midazolam Inj 1 Mg/Ml Vial 2 Ml IVP 05/14/25 15:59 Q2HR PRN AGITATION OR PAIN Ondansetron HCl 4 mg 04/12/25 23:27 04/17/25 05:28 Ondansetron Inj 2 Mg/Ml Inj 2 Ml IVP 05/12/25 23:26 4 mg Q6H PRN Administration NAUSEA OR VOMITING Protocol Pharmacy Consult 1 each 04/24/25 08:43 Pharmacy Renal Dose Adjustment 1 Ea XX 05/24/25 08:42 PRN PRN CONSULT Pharmacy Consult 1 each 05/09/25 13:15 Vancomycin Pharmacy To Dose 1 Each Each IV 06/08/25 13:14 QDAY PRN PROTOCOL Polyethylene Glycol 34 gm 05/02/25 09:00 05/09/25 10:33 Polyethylene Glycol 17 Gm Packet GT 06/01/25 08:59 34 gm QDAY KOURTNEY Administration Sennosides 2 tab 05/02/25 09:00 05/09/25 09:30 Senna Tablet GT 06/01/25 08:59 2 tab QDAY KOURTNEY Administration Protocol Sodium Hypochlorite 473 ml 05/06/25 21:00 05/09/25 20:57 Sod Hypochlorite 1/4 Str 473 Ml Btl IRRIG 06/05/25 20:59 473 ml BID KOURTNEY Administration Zinc Sulfate 220 mg 04/18/25 09:00 05/09/25 09:30 Zinc Sulfate 220 Mg Capsule GT 05/18/25 08:59 220 mg QDAY KOURTNEY Administration Plan 64-year-old male with past medical history of DM2, hypertension, A-fib, and Jehova's witness was admitted to the ICU on 02/27/2025 for shock and acute hypoxic respiratory failure. During his hospitalization patient was intubated for more than a week and had to be transitioned to tracheostomy chronically. After extubation he developed dysphagia and was started on tube feeds via NG for nutrition needs, he needed PEG tube/IR jejunostomy tube placement for continued nutrition. The services were not available at our institution due to the wait limits of our IR and OR beds. Patient was transferred to [facility] for incision of jejunostomy tube for feeding, during his stay there a abdominal abscess was incidentally found and percutaneously drained, he was subsequently transferred back to [facility]. While in hospital he developed a stage III/IV sacral decubitus ulcer approximately 10 x 5 cm and had debridement and suturing done by general surgeon, Dr. Negron. Patient was in the process of being worked up for discharge to home with ventilator and tube feeds. Patient admitted to the ICU from complete heart block requiring transcutaneous pacing and phenylephrine infusion. NEURO No acute problems CVS Chronic diastolic CHF [EF 65%] Patient appears clinically dry at this point, will hold on diuresis at this time. Weight 197 kg, dry weight 195 kg. ECHO 04/29/2025: Normal LV size and function. Estimated EF of 65%. Grade III Diastolic Dysfunction. Right ventricle is dilated with mild RV dysfunction. RVSP 47mmHg. RAP 15mmHg. Severe biatrial dilation. Moderate to Severe AOV calcification with no stenosis Mild tricuspid regurgitation No pericardial effusion. Rx: Patient 1500 cc/day fluid restriction, daily weights, tube feeds resumed Paroxysmal atrial fibrillation [id number] score of 3 points indicating 3.2% risk of stroke per year HAS-BLED: 3. High risk of major bleeding Rx: Will continue to hold amiodarone p.o. for now. If patient goes back into A- fib with stable blood pressure will start on amiodarone IV. RRx: Phenylephrine infusion was discontinued PULM Acute on chronic respiratory failure secondary to mucous plug and HCAP?resolving Dx: On chest x-ray showed possible mucous plugging of left lingular lobe Rx: - 05/10 patient underwent bronchoscopy with BAL ? Continue Zosyn 4.5g IV every 6 hourly started on [05/09- ? Continue vancomycin IV pharmacy to dose started on [05/09? ? Started DuoNebs every 8 hourly, Mucomyst every 8 hourly and chest physiotherapy for mucous clearance RRX: Continue routine tracheostomy care and frequent suctioning. HCAP Dx: Patient chronically trached and hospitalized for greater than 60 days. Rx: ContinueZosyn 4.5 g IV Q6 hourly and vancomycin IV daily Rx: Bronchial lavage sent for Gram stain and culture. RRx: Follow-up on cultures GI/Hep Jejunostomy tube Abdominal abscess s/p percutaneous drainage Rx: Resume tube feeds RENAL CKD stage IIIb Rx: Renally dose medication, avoid nephrotoxic agents. HEME/ONC Normocytic Anemia DDx: Anemia of chronic disease, blood loss anemia, GUMARO Dx: Hb 7.2, HCT 22.3 Rx: Limit lab draws to avoid further blood loss. ENDO T2 IDDM Rx: Insulin glargine 38U SC daily ID HCAP Rx: See pulm MSK/DERM Large decubitus ulcer Rx: Wound care as per wound care nurse and general surgery recommendations ICU Health maintenance: Dispo: Admit to ICU for complete heart block Diet: Tube feeds DVT ppx: SCDs GI ppx: Protonix 40mg qD Mechanical ventilattion: Yes, Mode: ACVC VT 500, RR 20, PEEP 8, FiO2 50% Sedation: No IV lines: 5 pIV Central line: No Arterial line: No Fuller: No Code status: FULL CODE Plan of care discussed with Attending Dr. Kalpesh Parra MD PGY 1 Disclaimer: This note was dictated by speech recognition. Minor errors in building superintendent may be present due to voice recognition software. Attending Provider Attestation/Addendum Patient seen and examined with the above resident, Jake Parra MD. I agree with the findings, assessment, and plan of care as documented except for any differences below. Patient with resolution of RVR. Rate controlled. Episode of bradycardia today during SBT. Resolution with placement back on VC. Patient tolerated multiple hours of PS 10/ PEEP 8, Fio2 weaned to 40%. Will plan to remove surtures form trach now as well, well established tract. Patient with suspect fluid depletion as well, small volume bolus given. No significant change in renal function. Nephrology feels that the role of dialysis may be limited now that the patient has multiple comorbidities that limit his ability to ever make it to HD on an outpatient basis. Family is aware but patient remains aggressive at this time. Follow up bronch cultures. Remains on adequate coverage for HCAP. Patient remain stable and we will assess ability to transfer back to telemetry with ongoing goals to get him home per his wishes. Wound care ongoing as well. TF resumes today. Total critical care time: I personally spent 40 minutes for review of physiologic parameters, directing plan of care, coordination of care with other specialists, and counseling patient at bedside. This is exclusive of time spent teaching housestaff or performing any separate billable procedures. Patient remains at significant risk of further morbidity and mortality warranting close monitoring and care only available in the ICU. Critical care services for atrial fibrillation, tachybrady syndrome potentially, acute on chronic respiratory failure, healthcare associated pneumonia.
[2025-05-10 07:51] LABS: Base Excess 8 (-3-3); HCO3 32 mEq/L (20-26); Inspired Oxygen, FIO2 50 %; O2 Saturation 94 % (91-98); PCO2 40 mmHg (32.0-48.0); PO2 60 mmHg (83-108); pH, Arterial 7.52 (7.35-7.45)
[2025-05-10 07:54] LABS: Allen Test Performed/OK; Puncture Site Right Radial
[2025-05-10] MEDS: ZINC SULFATE 220 MG CAPSULE GT (08:03)
[2025-05-10] MEDS: POLYETHYLENE GLYCOL 17 GM PACKET 34 GM GT (08:03)
[2025-05-10] MEDS: ASCORBIC ACID 250 MG TABLET 500 MG GT ×2 (08:04→21:15)
[2025-05-10] MEDS: LANSOPRAZOLE 30 MG TAB.RAP.DR GT (08:04)
[2025-05-10] MEDS: SOD HYPOCHLORITE 1/4 STR 473 ML BTL IRRIG ×2 (08:04→21:15)
[2025-05-10] MEDS: SODIUM CHLORIDE 0.45 % 500 ML 999 ML IV ×2 (08:40→17:07)
[2025-05-10] MEDS: INSULIN GLARGINE (Lantus) 5 UNIT/0.05 ML (PER 5 UNITS) 38 UNIT SC (09:45)
--- NOTE | 2025-05-10 09:45 | XR_ITS ---
Examination: AP chest single view TECHNIQUE: AP portable semiupright chest single view Date and time: May 10, 2025, 10:00 AM Comparison May 09, 2025 INDICATIONS: Status post bronchoscopy, history hypoxic respiratory failure FINDINGS: Tracheal tube tip 3.9 cm above nunu Enlarged cardiac contour with prominent vascular congestion Opacity right base consistent with pneumonia with significant right pleural fluid IMPRESSION: Mild heart failure Right lung pneumonia. Significant right pleural effusion
--- NOTE | 2025-05-10 09:48 | PD.RESPRO ---
Documentation for date of: 05/10/25 Subjective Subjective Interval history: Mr. Ortega is a 64-year-old male with a past medical history of type 2 diabetes mellitus, history of ATN, A-fib, hypertension, severe right-sided heart failure, HFpEF, severe BASIA, status post tracheostomy and jejunostomy, patient was previously admitted here for hypoxic respiratory failure requiring mechanical ventilation, was later transferred out to [facility] for jejunostomy tube placement, complicated by abdominal abscess, patient is now transferred back to [facility] for further management. The patient is noted to have pneumonia and acute hypoxic respiratory failure, requiring mechanical ventilation, nephrology was consulted as patient's renal function continues to worsen. Patient had previously required hemodialysis for ATN, but is a poor dialysis candidate outpatient. Patient noted to have significant fluid overload. Team gave 1 dose of Bumex with mild worsening of renal function. 500 cc bolus was given. Renal consultation requested for worsening renal failure in the setting of fluid overload. 05/06/2025, patient evaluated bedside, 1800 mL urine output overnight, sodium 139, potassium 4.7, carbon oxide 33.2, BUN 82 creatinine 3.2, EGFR improved to 21. We will discontinue dialysis catheter, patient currently CKD stage IV. IR dialysis cath removal ordered. 05/07/2025, patient evaluated bedside, on mechanical ventilation saturating 92%, 45% FiO2, urine output 2900 mL overnight, patient received Feraheme and Retacrit yesterday. Dialysis catheter was discontinued. 05/08/2025, patient evaluated bedside, currently mechanically ventilated via trach collar, no active discomfort, noticed remarkable improvement in swelling, wrinkling on upper extremities noted. The patient is pending placement to LTAC. Primary team will order labs for tomorrow, holding off on daily labs. Urine output 2400 mL overnight, net negative -1400. 05/09/2025 patient evaluated bedside, reported no active discomfort, mechanically ventilated via trach collar, swelling continues to improve, but noticed decreasing urine output urine output over 1130 mL overnight, also noted elevated BUN 107, creatinine 3.0, sodium 142, potassium 4.7. Concern for dehydration, will increase free water flushes to 70 cc/h. Hemoglobin 7.5, recommended repeating another dose of Feraheme x 1, as patient is a Denominational 05/10/2025, patient evaluated at bedside in ICU, awake and alert, currently on mechanical ventilation via trach collar, IV pressor phenylephrine, blood pressure 88/60, the patient was upgraded to ICU yesterday after cardiogenic shock, had third-degree AV block and A-fib RVR, cardiology was consulted who cardioverted the patient. Noted remarkable decrease in urine output, only 400 mL overnight. Water flushes at 70 cc/h were resumed today morning. Uptrending BUN, concern for obscure GI bleed, the patient does have oozing from sacral wound. Creatinine continues to downtrend. Recommend 500 cc half NS boluses every 6 hours as needed to replete intravascular volume. Initiated goals of care discussion with patient this a.m., went over repeated need for hemodialysis, patient stated that he would like time to decide and come to a decision by tomorrow. Labs this a.m. show sodium 145 potassium 4.6 chloride 101 bicarb 32, BUN 105 creatinine 2.9. Will evaluate tomorrow for dialysis, fluid challenge today. Exam Vital Signs Temp Pulse Resp BP Pulse Ox O2 Del Method O2 Flow Rate 97.3 F 88 16 97/60 97 Mechanical Ventilation 12 05/10/25 07:00 05/10/25 07:45 05/10/25 07:45 05/10/25 07:45 05/10/25 07:45 05/10/25 04:01 05/09/25 08:00 FiO2 50 05/10/25 07:22 Narrative Exam Physical Exam General: Awake and in no acute distress. Responsive, able to write his responses, follow commands, mechanical ventilation via trach collar, saturating well. HEENT: Normocephalic, atraumatic, mucous membranes moist. Heart: Irregular rhythm, rate controlled, no murmurs. Possible ejection systolic murmur. Lungs: Bilateral coarse crackles. Abdomen: Soft, obese, nondistended, nontender, positive bowel sounds. ?No guarding or rebound tenderness. Neurologic: Alert and oriented x3, no gross neurological deficit, and patient able to move all 4 extremities. Extremities: 1+ bilateral lower extremity edema, 1+ edema right upper extremity. Skin: No rash or ecchymoses. Patient has sacral decubitus ulcer. Objective Labs 05/20/25 05:08 05/20/25 17:43 Labs: Laboratory Results - last 24 hr 05/09/25 05/10/25 05/10/25 11:30 04:27 07:40 WBC 21.5 H 18.5 H RBC 2.46 L 2.55 L Hgb 7.2 L 7.4 L Hct 22.3 L 23.7 L MCV 91 93 MCH 29.3 29.0 MCHC 32.3 31.2 RDW Std Deviation 59.8 H 61.2 H Plt Count 339 402 D Neut % (Auto) 63 68 Lymph % (Auto) 26 20 Hyde % (Auto) 10 11 Eos % (Auto) 1 1 Baso % (Auto) 0 0 Neut # (Auto) 13.6 H 12.6 H Lymph # (Auto) 5.5 H 3.7 Hyde # (Auto) 2.1 H 2.0 H Eos # (Auto) 0.2 0.1 Baso # (Auto) 0.0 0.1 Immature Gran # (Auto) 0.11 H 0.09 H Absolute Nucleated RBC 0.00 0.00 Immature Gran % 1 H 1 H Nucleated RBC % 0 0 Puncture Site Right Radial ABG pH 7.52 H ABG pCO2 40 ABG pO2 60 L ABG HCO3 32 H ABG O2 Saturation 94 ABG Base Excess 8 H FiO2 50 Sodium 140 143 Potassium 4.7 4.6 Chloride 100 101 Carbon Dioxide 30.6 32.3 H Anion Gap 9 10 BUN 105 H* 105 H* Creatinine 2.9 H 2.9 H Estim Creat Clear Calc 42.1 L 42.1 L eGFR 23 L 23 L BUN/Creatinine Ratio 36 H 36 H Glucose 145 H 99 Calculated Osmolality 315 H 317 H Lactic Acid 1.5 Calcium 9.2 9.0 Corrected Calcium 9.8 9.6 Phosphorus 3.6 Magnesium 2.6 Total Bilirubin 0.4 0.5 AST 20 34 ALT 7 L 10 Alkaline Phosphatase 165 H 160 H Troponin I < 0.020 Total Protein 5.8 6.0 Albumin 3.2 L 3.2 L Globulin 2.6 2.8 Albumin/Globulin Ratio 1.2 1.1 L Random Vancomycin 13.1 ABG Interpretation ABG results: 04/18/25 04/18/25 04/18/25 04:40 06:27 10:30 ABG pH 7.28 L 7.33 L 7.36 ABG pCO2 72 H* 67 H 61 H ABG pO2 132 H 60 L D 60 L ABG HCO3 34 H 35 H 34 H ABG O2 Saturation 100 H 93 93 ABG Base Excess 6 H 7 H 8 H 04/19/25 05/10/25 08:53 07:40 ABG pH 7.47 H D 7.52 H ABG pCO2 45 D 40 ABG pO2 66 L 60 L ABG HCO3 33 H 32 H ABG O2 Saturation 96 94 ABG Base Excess 8 H 8 H Quality Measures Quality Measures VTE therapy Advance care planning discussed with:: patient Assessment & Plan Assessment Current Active Medications: Generic Name Dose Route Start Last Admin Trade Name Freq PRN Reason Stop Dose Admin Acetaminophen 650 mg 05/01/25 08:47 05/06/25 07:14 Acetaminophen 325 Mg Tablet PO 05/22/25 20:42 650 mg Q6HR PRN Administration pain 1-3 OR Fever >100.4 Hydrocodone Bitart/Acetaminophen 1 tab 05/06/25 08:23 05/08/25 11:45 Hydrocodone/Apap 5/325 Tablet PO 05/11/25 08:22 1 tab Q8HR PRN Administration PAIN SCALE 4-10(Mod-Sev Amiodarone HCl 200 mg 04/13/25 09:00 05/09/25 09:30 Amiodarone Hcl 200 Mg Tablet GT 05/13/25 08:59 200 mg QDAY KOURTNEY Administration Amlodipine Besylate 10 mg 04/13/25 09:00 05/04/25 09:39 Amlodipine Besylate 5 Mg Tablet GT 05/13/25 08:59 Not Given QDAY KOURTNEY Artificial Tears 0 drop 04/14/25 19:33 05/07/25 20:31 Artificial Tears 225 Drop/15 Ml Btl BOTH EYES 05/14/25 19:32 1 drop PRN PRN Administration TO KEEP EYES MOIST Ascorbic Acid 500 mg 04/17/25 21:00 05/10/25 08:04 Ascorbic Acid 250 Mg Tablet GT 05/17/25 20:59 500 mg BID KOURTNEY Administration Bumetanide 2 mg 04/21/25 09:00 05/04/25 05:31 Bumetanide Inj 0.25 Mg/Ml Vial 4 Ml IVP 05/21/25 08:59 2 mg BIDD KOURTNEY Administration Dextrose 25 ml 04/12/25 23:32 04/24/25 05:27 Dextrose 50%-Water Inj 50 Ml Syringe IV 05/12/25 23:31 25 ml Q15MIN PRN Administration BG 50-70 responsive npo pt Dextrose 50 ml 04/12/25 23:32 Dextrose 50%-Water Inj 50 Ml Syringe IV 05/12/25 23:31 Q15MIN PRN BG <50 OR BG <70 & pt unresponsive Glucagon 1 mg 04/12/25 23:32 Glucagon Inj 1 Mg Vial IM Q15MIN PRN BG <70, and no IV access Albumin Human 25 gm in 100 mls @ 100 mls/min 04/24/25 11:52 Albuminar-25 Ivpb IV PRN PRN DIALYSIS Piperacillin Sod/Tazobactam 100 mls @ 25 mls/hr 05/09/25 13:03 05/10/25 05:21 Sod 4.5 gm/ Sodium Chloride IV 05/16/25 13:02 25 mls/hr Q8HR KOURTNEY Administration Protocol Phenylephrine HCl 40 mg/ 100 mls @ 2.955 mls/hr 05/09/25 13:24 05/10/25 06:00 Sodium Chloride IV 06/08/25 13:23 0 mcg/kg/min .Q24H PRN 0 mls/hr Per Cardiogenic Protocol Titration Protocol 0.1 MCG/KG/MIN Norepinephrine/Dextrose 8 mg in 250 mls @ 18.469 mls/hr 05/09/25 13:33 Levophed In D5w 8mg/250ml IV 06/08/25 13:32 .[id number] PRN PER PROTOCOL Protocol 0.05 MCG/KG/MIN Fentanyl Citrate 2,500 mcg in 250 mls @ 2.5 mls/hr 05/09/25 15:05 Sublimaze Inj 2,500 Mcg/250 Ml Bag IV 05/14/25 15:04 .Q24H PRN PER PROTOCOL Protocol 25 MCG/HR Vancomycin HCl 250 mls @ 120 mls/hr 05/10/25 10:00 Vancomycin/Water 1250 Mg Ivpb IV 05/10/25 12:04 X1 ONE Insulin Glargine 38 unit 04/13/25 09:00 05/09/25 09:15 Insulin Glargine (Lantus) 5 Unit/0.05 Ml (Per 5 Units) SC 05/13/25 08:59 38 unit QDAY KOURTNEY Administration Insulin Human Lispro 0 unit 04/13/25 00:00 05/10/25 05:20 Insulin Lispro (Admelog) 1 Unit/0.01 Ml Unit SC 05/13/25 00:00 Not Given Q6HR KOURTNEY Protocol Lansoprazole 30 mg 05/05/25 09:00 05/10/25 08:04 Lansoprazole 30 Mg Tab.Rap.Dr DUARTE 06/04/25 08:59 30 mg QDAY KOURTNEY Administration Midazolam HCl 2 mg 05/09/25 15:09 Midazolam Inj 1 Mg/Ml Vial 2 Ml IVP 05/14/25 15:59 Q2HR PRN AGITATION OR PAIN Ondansetron HCl 4 mg 04/12/25 23:27 04/17/25 05:28 Ondansetron Inj 2 Mg/Ml Inj 2 Ml IVP 05/12/25 23:26 4 mg Q6H PRN Administration NAUSEA OR VOMITING Protocol Pharmacy Consult 1 each 04/24/25 08:43 Pharmacy Renal Dose Adjustment 1 Ea XX 05/24/25 08:42 PRN PRN CONSULT Pharmacy Consult 1 each 05/09/25 13:15 Vancomycin Pharmacy To Dose 1 Each Each IV 06/08/25 13:14 QDAY PRN PROTOCOL Polyethylene Glycol 34 gm 05/02/25 09:00 05/10/25 08:03 Polyethylene Glycol 17 Gm Packet GT 06/01/25 08:59 34 gm QDAY KOURTNEY Administration Sennosides 2 tab 05/02/25 09:00 05/10/25 08:03 Senna Tablet GT 06/01/25 08:59 2 tab QDAY KOURTNEY Administration Protocol Sodium Hypochlorite 473 ml 05/06/25 21:00 05/10/25 08:04 Sod Hypochlorite 1/4 Str 473 Ml Btl IRRIG 06/05/25 20:59 473 ml BID KOURTNEY Administration Zinc Sulfate 220 mg 04/18/25 09:00 05/10/25 08:03 Zinc Sulfate 220 Mg Capsule GT 05/18/25 08:59 220 mg QDAY KOURTNEY Administration Plan 64-year-old male with past medical history of DM2, hypertension, A-fib, and Jehova's witness was admitted to the ICU on 02/27/2025 for shock and acute on chronic hypoxic respiratory failure. He is s/p laparoscopic J-tube placement from [facility]. #Acute kidney injury-- seems to be in Ischemic ATN #Cardiogenic shock #Third-degree AV block?resolved Patient was admitted with acute kidney injury likely ischemic acute tubular necrosis, received hemodialysis but later had improvement in renal function, adequate urine output actually urine output frequently more than 3 L/day polyuric, received adequate IV and p.o. fluids. Renal function stabilized, noted improvement in anasarca, dialysis catheter was removed and hemodialysis was discontinued. Received Feraheme 550 Mg x 2 to improve iron stores and anemia as patient is Denominational unable to get blood transfusion. Ordered Retacrit 10,000 units x 1. Patient was pending transfer to LTAC, but had acute worsening in clinical condition following episode of third-degree AV block and bradycardia leading to hypotension cardiogenic shock. Cardiology was consulted, patient was upgraded to ICU IV atropine was given, but later patient had A-fib RVR requiring cardioversion. Patient started on IV phenylephrine. noted remarkable decrease in urine output, only 400 mL overnight. Water flushes at 70 cc/h were resumed today morning. Uptrending BUN, concern for obscure GI bleed, the patient does have oozing from sacral wound. Creatinine continues to downtrend. Recommend 500 cc half NS boluses every 6 hours as needed to replete intravascular volume. Plan: ? Fuller catheter ? Avoid nephrotoxic agents ? Renally dose medicines ? Continue with holding diuretic bumetanide. ? Fluid channel to replete intravascular volume, recommend half NS 500 cc every 6 hourly at 100 cc/h as needed, strict monitoring of urine output per hour. ? Initiated goals of care discussion with patient this a.m., went over repeated need for hemodialysis, patient stated that he would like time to decide and come to a decision by tomorrow. Will evaluate tomorrow for dialysis, fluid challenge today. #Right diastolic CHF #Decubitus ulcer #Chronic back pain #Jejunostomy tube #Acute on Chronic Hypoxic Hypercapnic Respiratory Failure #Obesity hypoventilation syndrome and obstructive sleep apnea #Tracheostomy #Hx of A-fib #Right internal jugular venous thrombosis #Right arm swelling #Morbid obesity #DM2 Above handled by primary hospitalist team Patient seen and care discussed with my attending physician, Dr. Teressa Tobar pgy 2 Attending Provider Attestation/Addendum Patient seen and examined with resident physician Dr. Tobar. Note reviewed, agree with findings and recommendations. BUN/creatinine elevated again- ?? going into ATN. Edema ++ Labs 3 times weekly with pediatric tubes due to his Denominational status. Dr. Minor will be covering for me.
[2025-05-10] MEDS: VANCOMYCIN/WATER 1250 MG IVPB 250 ML 120 MG IV (10:50)
--- NOTE | 2025-05-10 14:49 | EKG_ITS ---
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: RIA : [id number] Requested By: Stefano Terrell Order Number: [id number] Reading MD: Stefano Terrell Measurements Intervals [place] Rate: 68 P: DC: QRS: -51 QRSD: 150 T: 14 QT: 448 QTc: 478 Interpretive Statements ATRIAL FIBRILLATION MARKED LEFT AXIS DEVIATION INTRAVENTRICULAR CONDUCTION DELAY Compared to ECG 05/09/2025 13:05:14 Left-axis deviation now present Intraventricular conduction delay now present Ventricular premature complex(es) no longer present Aberrant conduction of supraventricular beat(s) no longer present Right bundle-branch block no longer present Left anterior fascicular block no longer present ST (T wave) deviation no longer present /store/S0/[id number]/ecg/[id number].pdf
--- NOTE | 2025-05-10 14:49 | PC.SS ---
SS update: patient admitted to ICU. Patient on mechanical ventilation, IV pressor support. D/c plan is pending on subacute vs LTAC. Per neighborhood planner, the medical laboratory technical officer at [facility] will review clinicals once the patient has been medically cleared to review/assess for appropriate level of care.
[2025-05-10] MEDS: LIDOCAINE 5% 1 PATCH TOP (15:01)
[2025-05-10] MEDS: ACETYLCYSTEINE RT SOL 10% 4 ML NEBU 3 ML INH ×2 (15:28→22:16)
[2025-05-10] MEDS: ALBUTEROL/IPRATROPIUM (Duoneb) RT SOL 3 ML NEBU INH ×2 (15:28→22:16)
[2025-05-10 15:53] LABS: Albumin, Serum 3.4 gm/dL (3.4-4.8); Anion Gap 9 (7-16); BUN/Creatinine Ratio 33 Ratio (12-20); Blood Urea Nitrogen 100 mg/dL (9-23); Calcium 9.2 mg/dL (8.3-10.6); Calcium (Corrected) 9.7 mg/dL (8.5-10.1); Carbon Dioxide 30.7 mMol/L (20.0-31.0); Chloride 102 mMol/L (98-107); Creatinine (Component) 3.0 mg/dL (0.6-1.3); Estimated Creatinine Clearance 40.7 mL/min (>60); Glucose 116 mg/dL (74-106); Magnesium 2.7 mg/dL (1.6-2.6); Osmolality,Calculated 315 (275-295); Phosphorous 3.5 mg/dL (2.4-5.1); Potassium 4.5 mMol/L (3.4-5.1); Sodium 142 mMol/L (136-145); eGFR 22 See Note
[2025-05-10] MEDS: GABAPENTIN 300 MG CAPSULE PO (16:52)
--- NOTE | 2025-05-10 22:55 | ESPR_ITS ---
Documentation for date of: 05/10/25 Subjective Subjective Interval history: Patient seen and examined at bedside. No new cardiac complaints at the present point of time Telemetry reviewed and patient still continues to be in atrial fibrillation but rate controlled. No new evidence of any bradycardia or heart block or any RVR episodes. Continues to be on phenylephrine drip at the present point of time which is appropriate given his history of A-fib. Continue amiodarone for rate control. Explained to the patient that if he develops tachybradycardia syndrome then he will need a permanent pacemaker but given his shoe sacral ulcer with recurrent infections he would be at high risk of pacemaker infections which will lead to pacemaker removal and both procedures which will involve complications. Explained this in detail with the patient. No need of any pacemaker at the present point of time and continue to monitor telemetry No dialysis performed by nephrology today as patient's hemoglobin continues to be low at 7.0 and patient is a Gnosticism Nephrology also did discuss goals of care with the patient. Patient at this point of time he is considering all options, but at present time wants to continue full treatment. Exam Vital Signs Temp Pulse Resp BP Pulse Ox O2 Del Method O2 Flow Rate 98.2 F 80 23 H 92/68 97 Mechanical Ventilation 12 05/10/25 20:00 05/10/25 22:23 05/10/25 22:23 05/10/25 22:00 05/10/25 22:23 05/10/25 04:01 05/09/25 08:00 FiO2 50 05/10/25 22:23 Narrative Exam General Appearance: Alert & Oriented X1, well-nourished male who is lying in bed in no acute distress. Extensive decubitus ulcers. HEENT: Skull symmetrical and atraumatic. Conjunctivae pale pink and moist. Pupils equal, round, reactive to light and accommodation (PERRL). Tracheostomy noted Cardio: Normal Rate and Rhythm with S1 and S2 heart sounds. No murmurs or extra heart sounds auscultated. No bruits on carotid auscultation. No peripheral edema or cyanosis. Lungs: Symmetric expansion. Reduced vesicular breath sounds, secondary to body habitus Abdomen: Non-tender, Non-distended, Normal Reactive Bowel Sounds Neuro: Yes Alert, NO cooperative, Yes oriented to person, No place, and NO time. Speech Not clear. CN grossly intact. Skin: Large sacral ulcer present but not examined and reviewed pictures from today from wound care. Objective Labs 05/11/25 04:55 05/11/25 04:55 Labs: Laboratory Results - last 24 hr 05/10/25 05/10/25 05/10/25 04:27 07:40 15:10 WBC 18.5 H RBC 2.55 L Hgb 7.4 L Hct 23.7 L MCV 93 MCH 29.0 MCHC 31.2 RDW Std Deviation 61.2 H Plt Count 402 D Neut % (Auto) 68 Lymph % (Auto) 20 Parke % (Auto) 11 Eos % (Auto) 1 Baso % (Auto) 0 Neut # (Auto) 12.6 H Lymph # (Auto) 3.7 Parke # (Auto) 2.0 H Eos # (Auto) 0.1 Baso # (Auto) 0.1 Immature Gran # (Auto) 0.09 H Absolute Nucleated RBC 0.00 Immature Gran % 1 H Nucleated RBC % 0 Puncture Site Right Radial ABG pH 7.52 H ABG pCO2 40 ABG pO2 60 L ABG HCO3 32 H ABG O2 Saturation 94 ABG Base Excess 8 H FiO2 50 Sodium 143 142 Potassium 4.6 4.5 Chloride 101 102 Carbon Dioxide 32.3 H 30.7 Anion Gap 10 9 BUN 105 H* 100 H Creatinine 2.9 H 3.0 H Estim Creat Clear Calc 42.1 L 40.7 L eGFR 23 L 22 L BUN/Creatinine Ratio 36 H 33 H Glucose 99 116 H Calculated Osmolality 317 H 315 H Calcium 9.0 9.2 Corrected Calcium 9.6 9.7 Phosphorus 3.6 3.5 Magnesium 2.6 2.7 H Total Bilirubin 0.5 AST 34 ALT 10 Alkaline Phosphatase 160 H Total Protein 6.0 Albumin 3.2 L 3.4 Globulin 2.8 Albumin/Globulin Ratio 1.1 L Random Vancomycin 13.1 ABG Interpretation ABG results: 04/18/25 04/18/25 04/18/25 04:40 06:27 10:30 ABG pH 7.28 L 7.33 L 7.36 ABG pCO2 72 H* 67 H 61 H ABG pO2 132 H 60 L D 60 L ABG HCO3 34 H 35 H 34 H ABG O2 Saturation 100 H 93 93 ABG Base Excess 6 H 7 H 8 H 04/19/25 05/10/25 08:53 07:40 ABG pH 7.47 H D 7.52 H ABG pCO2 45 D 40 ABG pO2 66 L 60 L ABG HCO3 33 H 32 H ABG O2 Saturation 96 94 ABG Base Excess 8 H 8 H Assessment & Plan A&P Narrative 64-year-old male, Gnosticism with a past medical history of hypertension, diabetes mellitus type 2, history of atrial fibrillation, CHF HFpEF 65%, grade 3 diastolic dysfunction, right heart failure, RSVP 47, moderate to severe ALB calsifications with no stenosis, status post tracheostomy, s/p PEG Tube at [facility], bariatric team, history of dyspahagia, extensive decubitus ulcers, CKD, history of anemia, history of Diego-en- Y gastric bypass, BASIA/OHS, and morbid obesity. Patient was upgraded to ICU for a third time with in acute respiratory respiratory failure secondary to mucous plug and shock, likely cardiogenic shock secondary to complete heart block requiring pressors. # Bradycardia and questionable complete heart block #A-fib with RVR, hemodynamically unstable-cardioverted #Paroxysmal atrial fibrillation Cardiology was consulted 05/09/2025 for significant bradycardia requiring external temporary transcutaneous pacing. Patient was also hypoxic and was transferred to the ICU. Plan was to place a temporary transvenous pacemaker if the patient continues to be bradycardic as he was 100% dependent on the transcutaneous pacing. Bronchoscopy was performed which showed small mucous plug which was removed and patient rhythm was back to his atrial fibrillation with RVR. Patient was on dopamine at that point of time. Patient blood pressure was on the lower side and was unstable and required cardioversion x 1. Dopamine drip was stopped along with Levophed and recommended patient to be placed on phenylephrine drip given the history of the atrial fibrillation with RVR. Continue amiodarone for now for rate control no beta-blockers or calcium channel blockers secondary to the hypotension. EF is preserved on the last echocardiogram. Patient vital signs stabilized after the phenylephrine drip and rate is now controlled between 70 to 90 bpm. Patient has multiple comorbidities as mentioned above and his prolonged hospitalization. He has a significantly large decubitus ulcers which is also contributing to the sepsis and apparently worsening since his admission. Patient is presently ventilator dependent and has a tracheostomy in place along with a jejunostomy. Discussed with the family about his present diagnosis, treatment plan and also discussed with them the goals of care. Discussed with the family regarding the prolonged hospitalization, his multiple comorbidities and the unhealing decubitus ulcer with minimal improvement and family is also going to speak about the goals of care with the primary team. Shock possible multifactorial in the setting of hypoxic respiratory failure along with the bradycardia and underlying sepsis 05/10/2025: Telemetry reviewed and patient still continues to be in atrial fibrillation but rate controlled. No new evidence of any bradycardia or heart block or any RVR episodes. Continues to be on phenylephrine drip at the present point of time which is appropriate given his history of A-fib. Continue amiodarone for rate control. Explained to the patient that if he develops tachybradycardia syndrome then he will need a permanent pacemaker but given his shoe sacral ulcer with recurrent infections he would be at high risk of pacemaker infections which will lead to pacemaker removal and both procedures which will involve complications. Explained this in detail with the patient. No need of any pacemaker at the present point of time and continue to monitor telemetry No dialysis performed by nephrology today as patient's hemoglobin continues to be low at 7.0 and patient is a Gnosticism Nephrology also did discuss goals of care with the patient. Patient at this point of time he is considering all options, but at present time wants to continue full treatment. CHADVASC 3 Plan -Phynelephrine drip 0.1 mg/kg/min given the patient's history of atrial fibrillation. -given recent cardioversion, recommend heparin drip and then Xarelto - Previously Xarelto was being held in the setting of large decubitus ulcer- anticoagulation has been held. -continue to wean off as blood pressure permits -Amiodarone, holding off #Congestive heart failure #CHF HFpEF 65% #Diastolic dysfunction, grade 3 #Pulmonary hypertension #BASIA/OHS #Moderate to severe a AOV calcification with no stenosis #Moderat to Large Pleural Effusion Patient has a past medical history of right heart faillure, Diastolic dysfucntion, and HFpEF 65% likely in the setting of cardiomypoathy seconadary to morbid obesity form BASIA/OHS. Given Cxr noted with prominent vascular congestion, consider repeat BNP, although hemodynamically unstable given pressors but may consider. No pheriphearl edema noted. Patient's previous Dry weight: 197.9 & Dry BNP 135. Previous [place] 03/19/2025: RAP 8, PAP 27, PCWP 7. BNP____;current cathy/ght 197 Troponin 05/09/2025: <0.02 Cxr (05/09/2025): Mild Heart Failure, Prominent vascular congestion and Moderate to large right pleural effusion Echo (04/29/2025): Normal LV size and function. Estimated EF of 65%. Grade III Diastolic Dysfunction.Right ventricle is dilated with mild RV dysfunction RVSP 47mmHg. RAP 15mmHg.Severe biatrial dilation.Moderate to Severe AOV calcification with no stenosis <ild tricuspid regurgitation. No pericardial effusion. Plan -Bumex 2 mg IVP BID-currently on hold -Consider repeat TSH & BNP AM -Consider fluid resprictions given pleural effusion, prominent vascular congestion, and repeat BNP -Consider Fluid Restrictions -Consider repeat echo given complete heart block -K >4 and Mg >2 #Acute on Chronic Respiratory Failure secondary to mucos plug #Healthcare-Associated Pneumonia #Leukocytosis Patient noted to have acute on chronic respiratory failure, required bronchoscopy w/ mucos plugs removed. Previous sputum Pseudomnas (04/03/2025) Plan -Zosyn (05/09/2025) -Blood culture obtained -Bronchial washing MRSA negative #Large Sacrale Decubitus Ulcer s/p excisional debridement (05/02/2025) Recent debridement of large decubitus ulcer on 05/02/2025 likely secondary to morbid obestiy and lack of mobility. plan -Continue abnitbiotics in the setting of leukocytosis & Healthcare associated pneumonia #CKD stage III Patient previously noted to have an KENIA, likely intrinisc per chart review previously had been noted to have worsening BUN now 105 and Cr 2.9. Plan -Continue to monitor BUN Cr -Consider fluid restrictions in setting of CHF history. #Jejunostomy #history of abdominal abscess s/p percutaneous drainage Plan -Tube feedings currently held #Diabetes Mellitus Type 2 non insulin depedent Patient has past medical history of diabetes mellitus type 2 non insulin depent but since admsision, in february 2025, patient has been started on insulin. Patinents fasting glucose has been less than 180. A1c (03/05/2025): 7.6% #Normocytic Anemia History of normocytic anemia likely secondayr to anemia of chronic disease vs blood loss secondary to large decubitus ulcer. 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 DVT ppx: SCDs GI ppx: Protonix 40mg qD Mechanical ventilattion: Yes, Mode: ACVC VT 500, RR 20, PEEP 8, FiO2 75%no Sedation: Yes, Fentanyl (CPOT 0-1)-currenlty not given IV lines: 2 pIV Central line: No Arterial line: No Fuller: No Code status: FULL CODE There is a high probability of sudden, clinically significant or life threatening deterioration in the patient condition which required the highest level of physician preparedness to intervene urgently. I have personally spent 65 minutes of critical care time, exclusive of time spent on any procedures, in evaluation and management of this critically ill patient. Management of rest of the medical conditions as per primary team and other consultants. Thank you for the consult and allowing me to participate in the care of the patient. Cardiology will continue to follow. Kobe Barahona M.D. Interventional Cardiology Time Spent With Patient Time: Total time spent is greater than 50% in coordination of care (as documented) at patient's floor/unit and/or counseling patient:
[2025-05-11] VITALS (55 sets, daily range): BP systolic 87–111; BP diastolic 62–78; PULSE 71–98; RESP 14–35; TEMP 36.1–37.1; O2SAT 84–100
[2025-05-11] MEDS: HYDROcodone/APAP 5/325 TABLET 1 TAB PO (01:38)
[2025-05-11] MEDS: PIPER/TAZO INJ 4.5 GM in SODIUM CHLORIDE 0.9% (POP) 100 ML IV ×3 (05:09→21:35)
[2025-05-11 06:37] LABS: Vancomycin,Random 19.8 mcg/mL
[2025-05-11 06:53] LABS: Basophils # (Auto) 0.0 Thou/mm3 (0.0-0.2); Basophils % (Auto) 0 % (0-2.5); Eosinophils # (Auto) 0.1 Thou/mm3 (0.0-0.5); Eosinophils % (Auto) 1 % (0-10); Hematocrit 23.5 % (41.0-53.0); Immature Granulocytes Auto 0.13 Thou/mm3 (0.00-0.00); Lymphocytes # (Auto) 3.7 Thou/mm3 (1.0-4.8); Lymphocytes % (Auto) 19 % (10-50); Mean Corpuscular HGB Conc 31.5 g/dl (31.0-37.0); Mean Corpuscular Hemoglobin 29.0 pg (25.0-35.0); Mean Corpuscular Volume 92 fL (80-100); Monocytes # (Auto) 2.3 Thou/mm3 (0.0-0.8); Monocytes % (Auto) 12 % (0-12); Neutrophils # (Auto) 12.9 Thou/mm3 (1.8-7.7); Neutrophils % (Auto) 67 % (37-80); Nucleated Red Blood Cell # 0.00 Thou/mm3 (0.00-0.00); Nucleated Red Blood Cell % 0 /100 WBC (0); Platelet Count 382 Thou/mm3 (140-440); RDW Standard Deviation 59.8 fL (35.1-43.9); Red Blood Count 2.55 Miln/mm3 (4.50-5.90); White Blood Count 19.1 Thou/mm3 (3.8-10.6)
[2025-05-11 06:54] LABS: Hemoglobin 7.4 g/dL (13.5-16.0)
[2025-05-11 07:00] LABS: Albumin, Serum 3.3 gm/dL (3.4-4.8); Anion Gap 11 (7-16); BUN/Creatinine Ratio 32 Ratio (12-20); Calcium 8.9 mg/dL (8.3-10.6); Calcium (Corrected) 9.5 mg/dL (8.5-10.1); Carbon Dioxide 30.3 mMol/L (20.0-31.0); Chloride 100 mMol/L (98-107); Creatinine (Component) 3.3 mg/dL (0.6-1.3); Estimated Creatinine Clearance 36.6 mL/min (>60); Glucose 154 mg/dL (74-106); Magnesium 2.7 mg/dL (1.6-2.6); Osmolality,Calculated 316 (275-295); Phosphorous 3.6 mg/dL (2.4-5.1); Potassium 4.6 mMol/L (3.4-5.1); Sodium 141 mMol/L (136-145); eGFR 20 See Note
--- NOTE | 2025-05-11 07:14 | PD.RESPRO ---
Documentation for date of: 05/11/25 Subjective Subjective Interval history: 64-year-old male with past medical history of DM2, hypertension, A-fib, and Jehova's witness was admitted to the ICU on 02/27/2025 for shock and acute hypoxic respiratory failure. During his hospitalization patient was intubated for more than a week and had to be transitioned to tracheostomy chronically. After extubation he developed dysphagia and was started on tube feeds via NG for nutrition needs, he needed PEG tube/IR jejunostomy tube placement for continued nutrition. The services were not available at our institution due to the wait limits of our IR and OR beds. Patient was transferred to [facility] for incision of jejunostomy tube for feeding, during his stay there a abdominal abscess was incidentally found and percutaneously drained, he was subsequently transferred back to [facility]. While in hospital he developed a stage III/IV sacral decubitus ulcer approximately 10 x 5 cm and had debridement and suturing done by general surgeon, Dr. Negron. Patient was in the process of being worked up for discharge to home with ventilator and tube feeds. 05/09/2025: This morning approximately 11 AM patient became bradycardic in the 30s after receiving his daily dose of amiodarone p.o. a [employer] was called and calcium gluconate and calcium chloride were administered. Subsequently patient went into complete heart block and transcutaneous pacing was started, after patient went into A-fib with RVR [rates 150s] and blood pressure became unstable with maps in the 50s. Initially dobutamine infusion was started and then patient again went into A-fib with RVR and he received 1 round of electrical, synchronized cardioversion with 100 J. Patient remained in A-fib but rate now controlled. Subsequently dopamine infusion was stopped and patient started on low-dose phenylephrine. Patient was upgraded to the ICU for complete heart block s/p chemical and electrical cardioversion. 05/10/2025: Overnight patient was titrated off of phenylephrine. Input 312/output 400 cc in 24 hours. Weight 197 kg, dry weight 195 kg. This morning patient complains of upper back and shoulder pain, also pleuritic chest pain and taking deep breaths. Hb 7.4, HCT 23.7, BUN 105, CR 2.9, osmolality 270, pH 7.52, pCO2 40. EKG showed atrial fibrillation, rate 68. BAL Gram stain and culture pending. Blood culture from 05/09 pending. Currently patient on Zosyn 4.5 g IV Q6 hourly and vancomycin IV pharmacy to dose. Give 0.45 % NS 500 cc IVF bolus, started on DuoNebs every 8 hourly, Mucomyst every 8 hourly and chest physiotherapy for mucous congestion. On AC/VC, will attempt SBT tomorrow. Had goals of care discussion with patient today regarding extremely poor long-term prognosis, high risk of deterioration and switching CODE STATUS, patient wishes for more time to deliberate. 05/11/2025: Overnight patient had no events. Input/output 3251/1066 cc, 1+ BM. Weight 194.5 kg which is about his dry weight. This morning patient denied any SOB, chest pain or generalized body pain. Endorsed good response to gabapentin. Hb 7.4, HCT 23.5, PLT 382, NA 141, BUN 104, CR 3.3, magnesium 2.7. Chest x-ray showed right base pleural effusion, increased vascular congestion. Scheduled on gabapentin 100 Mg GT 3 times daily, continue Zosyn 4.5 g IV every 8 hourly and vancomycin IV daily. Will attempt to wean from blow-by, put patient on vent overnight to rest and again try to wean tomorrow. Patient currently clinically stable for downgrade to telemetry. Exam Vital Signs Temp Pulse Resp BP Pulse Ox O2 Del Method O2 Flow Rate 98.7 F 83 22 H 103/64 97 Mechanical Ventilation 12 05/11/25 04:00 05/11/25 06:00 05/11/25 06:00 05/11/25 06:00 05/11/25 06:00 05/10/25 04:01 05/09/25 08:00 FiO2 50 05/11/25 02:27 Narrative Exam Constitutional Alert, oriented x 3 and mild distress. Elderly male, morbidly obese, MM pale and dry HEENT Vision grossly intact. Patent nares. Trachea midline. Tracheostomy tube in situ, exit site clean. ACMV, VT 500, RR 22, PEEP 8, FiO2 50% Respiratory Chest normal on inspection and decreased air entry in all lung sims, transmitted sounds And congestion on anterior chest wall, middle and upper lobes. Cardiovascular S1 and S2 audible, RRR. No murmurs carotid bruit. No gross JVD. Abdominal Soft, obese and non tender to palpation in all quadrants. BS +. Jejunostomy tube in situ, exit site clean Genitourinary No bladder tenderness, no flank pain. Normal to palpation Musculoskeletal Extremities tone within normal limits. No LE edema. Neurological CN II - XII grossly intact. Extremity motor and sensation grossly intact. Skin Warm, dry and intact. 10 x 5 large sacral decubitus ulcer, necrotic tissue noted, easily friable. Sanguinous oozing Psychiatric Patient has good affect, is cooperative Objective Labs 05/13/25 08:58 05/13/25 05:29 Labs: Laboratory Results - last 24 hr 05/10/25 05/10/25 05/11/25 07:40 15:10 04:55 WBC 19.1 H RBC 2.55 L Hgb 7.4 L Hct 23.5 L MCV 92 MCH 29.0 MCHC 31.5 RDW Std Deviation 59.8 H Plt Count 382 Neut % (Auto) 67 Lymph % (Auto) 19 [place] % (Auto) 12 Eos % (Auto) 1 Baso % (Auto) 0 Neut # (Auto) 12.9 H Lymph # (Auto) 3.7 [place] # (Auto) 2.3 H Eos # (Auto) 0.1 Baso # (Auto) 0.0 Immature Gran # (Auto) 0.13 H Absolute Nucleated RBC 0.00 Immature Gran % 1 H Nucleated RBC % 0 Puncture Site Right Radial ABG pH 7.52 H ABG pCO2 40 ABG pO2 60 L ABG HCO3 32 H ABG O2 Saturation 94 ABG Base Excess 8 H FiO2 50 Sodium 142 Potassium 4.5 Chloride 102 Carbon Dioxide 30.7 Anion Gap 9 BUN 100 H Creatinine 3.0 H Estim Creat Clear Calc 40.7 L eGFR 22 L BUN/Creatinine Ratio 33 H Glucose 116 H Calculated Osmolality 315 H Calcium 9.2 Corrected Calcium 9.7 Phosphorus 3.5 Magnesium 2.7 H Albumin 3.4 Random Vancomycin 19.8 ABG Interpretation ABG results: 04/18/25 04/18/25 04/18/25 04:40 06:27 10:30 ABG pH 7.28 L 7.33 L 7.36 ABG pCO2 72 H* 67 H 61 H ABG pO2 132 H 60 L D 60 L ABG HCO3 34 H 35 H 34 H ABG O2 Saturation 100 H 93 93 ABG Base Excess 6 H 7 H 8 H 04/19/25 05/10/25 08:53 07:40 ABG pH 7.47 H D 7.52 H ABG pCO2 45 D 40 ABG pO2 66 L 60 L ABG HCO3 33 H 32 H ABG O2 Saturation 96 94 ABG Base Excess 8 H 8 H Quality Measures Quality Measures VTE therapy Advance care planning discussed with:: patient Assessment & Plan Assessment Current Active Medications: Generic Name Dose Route Start Last Admin Trade Name Freq PRN Reason Stop Dose Admin Acetaminophen 650 mg 05/01/25 08:47 05/06/25 07:14 Acetaminophen 325 Mg Tablet PO 05/22/25 20:42 650 mg Q6HR PRN Administration pain 1-3 OR Fever >100.4 Hydrocodone Bitart/Acetaminophen 1 tab 05/06/25 08:23 05/11/25 01:38 Hydrocodone/Apap 5/325 Tablet PO 05/11/25 08:22 1 tab Q8HR PRN Administration PAIN SCALE 4-10(Mod-Sev Acetylcysteine 3 ml 05/10/25 15:00 05/10/25 22:16 Acetylcysteine Rt Gloria 10% 4 Ml Nebu INH 06/09/25 14:59 3 ml Q8HRRT KOURTNEY Administration Albuterol/Ipratropium 3 ml 05/10/25 15:00 05/10/25 22:16 Albuterol/Ipratropium (Duoneb) Rt Gloria 3 Ml Nebu INH 06/09/25 14:59 3 ml Q8HRRT KOURTNEY Administration Amiodarone HCl 200 mg 04/13/25 09:00 05/09/25 09:30 Amiodarone Hcl 200 Mg Tablet GT 05/13/25 08:59 200 mg QDAY KOURTNEY Administration Amlodipine Besylate 10 mg 04/13/25 09:00 05/04/25 09:39 Amlodipine Besylate 5 Mg Tablet GT 05/13/25 08:59 Not Given QDAY KOURTNEY Artificial Tears 0 drop 04/14/25 19:33 05/07/25 20:31 Artificial Tears 225 Drop/15 Ml Btl BOTH EYES 05/14/25 19:32 1 drop PRN PRN Administration TO KEEP EYES MOIST Ascorbic Acid 500 mg 04/17/25 21:00 05/10/25 21:15 Ascorbic Acid 250 Mg Tablet GT 05/17/25 20:59 500 mg BID KOURTNEY Administration Bumetanide 2 mg 04/21/25 09:00 05/04/25 05:31 Bumetanide Inj 0.25 Mg/Ml Vial 4 Ml IVP 05/21/25 08:59 2 mg BIDD KOURTNEY Administration Dextrose 25 ml 04/12/25 23:32 04/24/25 05:27 Dextrose 50%-Water Inj 50 Ml Syringe IV 05/12/25 23:31 25 ml Q15MIN PRN Administration BG 50-70 responsive npo pt Dextrose 50 ml 04/12/25 23:32 Dextrose 50%-Water Inj 50 Ml Syringe IV 05/12/25 23:31 Q15MIN PRN BG <50 OR BG <70 & pt unresponsive Glucagon 1 mg 04/12/25 23:32 Glucagon Inj 1 Mg Vial IM Q15MIN PRN BG <70, and no IV access Albumin Human 25 gm in 100 mls @ 100 mls/min 04/24/25 11:52 Albuminar-25 Ivpb IV PRN PRN DIALYSIS Piperacillin Sod/Tazobactam 100 mls @ 25 mls/hr 05/09/25 13:03 05/11/25 05:09 Sod 4.5 gm/ Sodium Chloride IV 05/16/25 13:02 25 mls/hr Q8HR KOURTNEY Administration Protocol Phenylephrine HCl 40 mg/ 100 mls @ 2.955 mls/hr 05/09/25 13:24 05/10/25 06:00 Sodium Chloride IV 06/08/25 13:23 0 mcg/kg/min .Q24H PRN 0 mls/hr Per Cardiogenic Protocol Titration Protocol 0.1 MCG/KG/MIN Norepinephrine/Dextrose 8 mg in 250 mls @ 18.469 mls/hr 05/09/25 13:33 Levophed In D5w 8mg/250ml IV 06/08/25 13:32 .[id number] PRN PER PROTOCOL Protocol 0.05 MCG/KG/MIN Insulin Glargine 38 unit 04/13/25 09:00 05/10/25 09:45 Insulin Glargine (Lantus) 5 Unit/0.05 Ml (Per 5 Units) SC 05/13/25 08:59 38 unit QDAY KOURTNEY Administration Insulin Human Lispro 0 unit 04/13/25 00:00 05/11/25 05:04 Insulin Lispro (Admelog) 1 Unit/0.01 Ml Unit SC 05/13/25 00:00 Not Given Q6HR KOURTNEY Protocol Lansoprazole 30 mg 05/05/25 09:00 05/10/25 08:04 Lansoprazole 30 Mg Tab. GT 06/04/25 08:59 30 mg QDAY KOURTNEY Administration Midazolam HCl 2 mg 05/09/25 15:09 Midazolam Inj 1 Mg/Ml Vial 2 Ml IVP 05/14/25 15:59 Q2HR PRN AGITATION OR PAIN Ondansetron HCl 4 mg 04/12/25 23:27 04/17/25 05:28 Ondansetron Inj 2 Mg/Ml Inj 2 Ml IVP 05/12/25 23:26 4 mg Q6H PRN Administration NAUSEA OR VOMITING Protocol Pharmacy Consult 1 each 04/24/25 08:43 Pharmacy Renal Dose Adjustment 1 Ea XX 05/24/25 08:42 PRN PRN CONSULT Pharmacy Consult 1 each 05/09/25 13:15 Vancomycin Pharmacy To Dose 1 Each Each IV 06/08/25 13:14 QDAY PRN PROTOCOL Polyethylene Glycol 34 gm 05/02/25 09:00 05/10/25 08:03 Polyethylene Glycol 17 Gm Packet GT 06/01/25 08:59 34 gm QDAY KOURTNEY Administration Sennosides 2 tab 05/02/25 09:00 05/10/25 08:03 Senna Tablet GT 06/01/25 08:59 2 tab QDAY KOURTNEY Administration Protocol Sodium Hypochlorite 473 ml 05/06/25 21:00 05/10/25 21:15 Sod Hypochlorite 1/4 Str 473 Ml Btl IRRIG 06/05/25 20:59 473 ml BID KOURTNEY Administration Zinc Sulfate 220 mg 04/18/25 09:00 05/10/25 08:03 Zinc Sulfate 220 Mg Capsule GT 05/18/25 08:59 220 mg QDAY KOURTNEY Administration Plan 64-year-old male with past medical history of DM2, hypertension, A-fib, and Jehova's witness was admitted to the ICU on 02/27/2025 for shock and acute hypoxic respiratory failure. During his hospitalization patient was intubated for more than a week and had to be transitioned to tracheostomy chronically. After extubation he developed dysphagia and was started on tube feeds via NG for nutrition needs, he needed PEG tube/IR jejunostomy tube placement for continued nutrition. The services were not available at our institution due to the wait limits of our IR and OR beds. Patient was transferred to [facility] for incision of jejunostomy tube for feeding, during his stay there a abdominal abscess was incidentally found and percutaneously drained, he was subsequently transferred back to [facility]. While in hospital he developed a stage III/IV sacral decubitus ulcer approximately 10 x 5 cm and had debridement and suturing done by general surgeon, Dr. Negron. Patient was in the process of being worked up for discharge to home with ventilator and tube feeds. Patient admitted to the ICU from complete heart block requiring transcutaneous pacing and phenylephrine infusion. NEURO No acute problems CVS Chronic diastolic CHF [EF 65%] Patient appears clinically dry at this point, will hold on diuresis at this time. Weight 197 kg, dry weight 195 kg. ECHO 04/29/2025: Normal LV size and function. Estimated EF of 65%. Grade III Diastolic Dysfunction. Right ventricle is dilated with mild RV dysfunction. RVSP 47mmHg. RAP 15mmHg. Severe biatrial dilation. Moderate to Severe AOV calcification with no stenosis Mild tricuspid regurgitation No pericardial effusion. Rx: Patient 1500 cc/day fluid restriction, daily weights, tube feeds resumed Paroxysmal atrial fibrillation [id number] score of 3 points indicating 3.2% risk of stroke per year HAS-BLED: 3. High risk of major bleeding Rx: Will continue to hold amiodarone p.o. for now. If patient goes back into A-fib with stable blood pressure will start on amiodarone IV PULM Acute on chronic respiratory failure secondary to mucous plug and HCAP?resolving Dx: On chest x-ray showed possible mucous plugging of left lingular lobe Rx: - 05/10 patient underwent bronchoscopy with BAL ? Continue Zosyn 4.5g IV every 6 hourly started on [05/09- ? Continue vancomycin IV pharmacy to dose started on [05/09? ? Continue DuoNebs every 8 hourly, Mucomyst every 8 hourly and chest physiotherapy for mucous clearance RRX: Continue routine tracheostomy care and frequent suctioning. HCAP Dx: Patient chronically trached and hospitalized for greater than 60 days. Rx: ContinueZosyn 4.5 g IV Q6 hourly and vancomycin IV daily Rx: Bronchial lavage sent for Gram stain and culture. RRx: Follow-up on cultures GI/Hep Jejunostomy tube Abdominal abscess s/p percutaneous drainage Rx: Continue tube feeds RENAL CKD stage IIIb Rx: Renally dose medication, avoid nephrotoxic agents. HEME/ONC Normocytic Anemia DDx: Anemia of chronic disease, blood loss anemia, GUMARO Dx: Hb 7.2, HCT 22.3 Rx: Limit lab draws to avoid further blood loss. ENDO T2 IDDM Rx: Insulin glargine 38U SC daily ID HCAP Rx: See pulm MSK/DERM Large decubitus ulcer Rx: Wound care as per wound care nurse and general surgery recommendations ICU Health maintenance: Dispo: Patient clinically stable for downgrade to Telemetry Diet: Tube feeds DVT ppx: SCDs GI ppx: Protonix 40mg qD Mechanical ventilattion: Yes, Mode: ACVC VT 500, RR 20, PEEP 8, FiO2 50% Sedation: No IV lines: 5 pIV Central line: No Arterial line: No Fuller: No Code status: FULL CODE Plan of care discussed with Attending Dr. Kalpesh Parra MD PGY 1 Disclaimer: This note was dictated by speech recognition. Minor errors in trading analyst may be present due to voice recognition software. Attending Provider Attestation/Addendum Patient seen and examined with above resident, Jake Parra MD. I agree with the findings, assessment, and plan of care as documented separately below. Patient continues to show significant proved and on. Coverage for HCAP. Able to be weaned off mechanical elation after pressure support trial to blow-by. Patient will continue with wound care. He remains adamant about continuing aggressive care at this point. He is making urine though nephrology will continue to hold off on dialysis given he is not an ideal candidate for outpatient therapy. Patient and his family may need additional time to help make decisions. Patient will be transferred to telemetry for ongoing management pending his final decision making. Remain available for any needs with ventilator weaning should he continue to trouble. Would be best served by resting overnight on volume control and repeat transition to blow-by gradually increasing over the coming days. Cardiology will follow and help continue to manage atrial fibrillation, Holding anticoagulation due to risk of bleeding. Patient is not ideal candidate for permanent pacemaker though he may have tachybradycardia syndrome secondary to ongoing infection including potential from his wound as it source of seeding/bacteremia. Total critical care time: I personally spent 40 minutes for review of physiologic parameters, direct the plan of care throughout the day, coordination of care with other subspecialists, and counseling patient at bedside. This is exclusive of time spent teaching housestaff performing any separate billable procedures. Patient remains at significant risk for further morbidity and mortality warranting close monitoring and care only available in the ICU. Patient required critical care services for acute on chronic hypoxic respiratory failure, symptomatic bradycardia/tachybradycardia syndrome, healthcare acquired pneumonia, decubitus ulcer.
--- NOTE | 2025-05-11 07:28 | XR_ITS ---
Examination: AP chest single view. TECHNIQUE: AP portable supine chest single view. Date and time: May 11, 2025, 0745 hours Comparison May 10, 2025 INDICATIONS: Difficulty breathing discrete. FINDINGS: Heart failure pattern with enlarged cardiac contour prominent vascular congestion Pneumonia versus edema right lung with layering right pleural fluid at least moderate Tracheal tube tip 4.2 cm above Meggan IMPRESSION: Mild heart failure Right lung pneumonia. Moderate right pleural fluid
[2025-05-11 07:29] LABS: Blood Urea Nitrogen 104 mg/dL (9-23)
[2025-05-11] MEDS: ALBUTEROL/IPRATROPIUM (Duoneb) RT SOL 3 ML NEBU INH ×3 (07:36→22:25)
[2025-05-11] MEDS: ACETYLCYSTEINE RT SOL 10% 4 ML NEBU 3 ML INH ×3 (07:36→22:25)
[2025-05-11] MEDS: SOD HYPOCHLORITE 1/4 STR 473 ML BTL IRRIG ×2 (09:38→21:35)
[2025-05-11] MEDS: ASCORBIC ACID 250 MG TABLET 500 MG GT ×2 (09:38→21:35)
[2025-05-11] MEDS: LANSOPRAZOLE 30 MG TAB.RAP.DR GT (09:38)
[2025-05-11] MEDS: ZINC SULFATE 220 MG CAPSULE GT (09:38)
[2025-05-11] MEDS: INSULIN GLARGINE (Lantus) 5 UNIT/0.05 ML (PER 5 UNITS) 38 UNIT SC (09:39)
[2025-05-11] MEDS: INSULIN LISPRO (AdmeLOG) 1 UNIT/0.01 ML UNIT SC ×2 (13:00→17:33)
--- NOTE | 2025-05-11 14:18 | PD.RESPRO ---
Documentation for date of: 05/11/25 Subjective Subjective Interval history: Patient received as ICU downgrade from lane marker installer team. Patient was upgraded on May 09, 2025 due to symptomatic bradycardia, patient was started on dopamine drip and patient was noted to be in A-fib with RVR, patient was cardioverted by lane marker installer team and transition back into atrial fibrillation however was rate controlled, dopamine infusion was stopped and patient was started on low-dose phenylephrine. During the hospital course patient underwent bronchoscopy which showed significant mucous and underlying mucous plug. Patient started on Mucomyst, DuoNeb every 8 hours scheduled and chest physiotherapy for mucous congestion. Patient currently recommended to be on blow-by in a.m. and mechanical ventilation overnight. Patient was deemed stable to be downgraded to telemetry. Will resume care of patient. Exam Vital Signs Temp Pulse Resp BP Pulse Ox O2 Del Method O2 Flow Rate 97.8 F 74 30 H 97/68 95 Mechanical Ventilation 10 05/11/25 12:00 05/11/25 12:23 05/11/25 12:23 05/11/25 12:00 05/11/25 12:23 05/11/25 08:00 05/11/25 12:23 FiO2 50 05/11/25 12:23 Narrative Exam Constitutional: Alert, oriented x 3 and mild distress. Elderly male, morbidly obese, MM pale and dry HEENT: Vision grossly intact. Patent nares. Trachea midline. Tracheostomy tube in situ, exit site clean. Respiratory: Chest normal on inspection and decreased air entry in all lung sims, transmitted sounds And congestion on anterior chest wall, middle and upper lobes. Cardiovascular: S1 and S2 audible, RRR. No murmurs carotid bruit. No gross JVD. Abdominal: Soft, obese and non tender to palpation in all quadrants. BS +. Jejunostomy tube in situ, exit site clean Genitourinary: No bladder tenderness, no flank pain. Normal to palpation Musculoskeletal: Extremities tone within normal limits. No LE edema. Neurological: CN II - XII grossly intact. Extremity motor and sensation grossly intact. Skin: Warm, dry and intact. 10 x 5 large sacral decubitus ulcer, necrotic tissue noted, easily friable. Sanguinous oozing Psychiatric: Patient has good affect, is cooperative Objective Labs 05/12/25 05:00 05/12/25 05:00 Labs: Laboratory Results - last 24 hr 05/10/25 05/11/25 15:10 04:55 WBC 19.1 H RBC 2.55 L Hgb 7.4 L Hct 23.5 L MCV 92 MCH 29.0 MCHC 31.5 RDW Std Deviation 59.8 H Plt Count 382 Neut % (Auto) 67 Lymph % (Auto) 19 Titus % (Auto) 12 Eos % (Auto) 1 Baso % (Auto) 0 Neut # (Auto) 12.9 H Lymph # (Auto) 3.7 Titus # (Auto) 2.3 H Eos # (Auto) 0.1 Baso # (Auto) 0.0 Immature Gran # (Auto) 0.13 H Absolute Nucleated RBC 0.00 Immature Gran % 1 H Nucleated RBC % 0 Sodium 142 141 Potassium 4.5 4.6 Chloride 102 100 Carbon Dioxide 30.7 30.3 Anion Gap 9 11 BUN 100 H 104 H* Creatinine 3.0 H 3.3 H Estim Creat Clear Calc 40.7 L 36.6 L eGFR 22 L 20 L BUN/Creatinine Ratio 33 H 32 H Glucose 116 H 154 H Calculated Osmolality 315 H 316 H Calcium 9.2 8.9 Corrected Calcium 9.7 9.5 Phosphorus 3.5 3.6 Magnesium 2.7 H 2.7 H Albumin 3.4 3.3 L Random Vancomycin 19.8 ABG Interpretation ABG results: 04/18/25 04/18/25 04/18/25 04:40 06:27 10:30 ABG pH 7.28 L 7.33 L 7.36 ABG pCO2 72 H* 67 H 61 H ABG pO2 132 H 60 L D 60 L ABG HCO3 34 H 35 H 34 H ABG O2 Saturation 100 H 93 93 ABG Base Excess 6 H 7 H 8 H 04/19/25 05/10/25 08:53 07:40 ABG pH 7.47 H D 7.52 H ABG pCO2 45 D 40 ABG pO2 66 L 60 L ABG HCO3 33 H 32 H ABG O2 Saturation 96 94 ABG Base Excess 8 H 8 H Quality Measures Quality Measures VTE therapy Advance care planning discussed with:: patient Assessment & Plan Assessment Current Active Medications: Generic Name Dose Route Start Last Admin Trade Name Freq PRN Reason Stop Dose Admin Acetaminophen 650 mg 05/01/25 08:47 05/06/25 07:14 Acetaminophen 325 Mg Tablet PO 05/22/25 20:42 650 mg Q6HR PRN Administration pain 1-3 OR Fever >100.4 Acetylcysteine 3 ml 05/10/25 15:00 05/11/25 07:36 Acetylcysteine Rt Gloria 10% 4 Ml Nebu INH 06/09/25 14:59 3 ml Q8HRRT KOURTNEY Administration Albuterol/Ipratropium 3 ml 05/10/25 15:00 05/11/25 07:36 Albuterol/Ipratropium (Duoneb) Rt Gloria 3 Ml Nebu INH 06/09/25 14:59 3 ml Q8HRRT KOURTNEY Administration Amiodarone HCl 200 mg 04/13/25 09:00 05/09/25 09:30 Amiodarone Hcl 200 Mg Tablet GT 05/13/25 08:59 200 mg QDAY KOURTNEY Administration Amlodipine Besylate 10 mg 04/13/25 09:00 05/04/25 09:39 Amlodipine Besylate 5 Mg Tablet GT 05/13/25 08:59 Not Given QDAY KOURTNEY Artificial Tears 0 drop 04/14/25 19:33 05/07/25 20:31 Artificial Tears 225 Drop/15 Ml Btl BOTH EYES 05/14/25 19:32 1 drop PRN PRN Administration TO KEEP EYES MOIST Ascorbic Acid 500 mg 04/17/25 21:00 05/11/25 09:38 Ascorbic Acid 250 Mg Tablet GT 05/17/25 20:59 500 mg BID KOURTNEY Administration Bumetanide 2 mg 04/21/25 09:00 05/04/25 05:31 Bumetanide Inj 0.25 Mg/Ml Vial 4 Ml IVP 05/21/25 08:59 2 mg BIDD KOURTNEY Administration Dextrose 25 ml 04/12/25 23:32 04/24/25 05:27 Dextrose 50%-Water Inj 50 Ml Syringe IV 05/12/25 23:31 25 ml Q15MIN PRN Administration BG 50-70 responsive npo pt Dextrose 50 ml 04/12/25 23:32 Dextrose 50%-Water Inj 50 Ml Syringe IV 05/12/25 23:31 Q15MIN PRN BG <50 OR BG <70 & pt unresponsive Gabapentin 100 mg 05/11/25 14:05 Gabapentin 100 Mg Capsule PO 06/10/25 14:04 TID KOURTNEY Glucagon 1 mg 04/12/25 23:32 Glucagon Inj 1 Mg Vial IM Q15MIN PRN BG <70, and no IV access Albumin Human 25 gm in 100 mls @ 100 mls/min 04/24/25 11:52 Albuminar-25 Ivpb IV PRN PRN DIALYSIS Piperacillin Sod/Tazobactam 100 mls @ 25 mls/hr 05/09/25 13:03 05/11/25 13:14 Sod 4.5 gm/ Sodium Chloride IV 05/16/25 13:02 25 mls/hr Q8HR KOURTNEY Administration Protocol Phenylephrine HCl 40 mg/ 100 mls @ 2.955 mls/hr 05/09/25 13:24 05/10/25 06:00 Sodium Chloride IV 06/08/25 13:23 0 mcg/kg/min .Q24H PRN 0 mls/hr Per Cardiogenic Protocol Titration Protocol 0.1 MCG/KG/MIN Norepinephrine/Dextrose 8 mg in 250 mls @ 18.469 mls/hr 05/09/25 13:33 Levophed In D5w 8mg/250ml IV 06/08/25 13:32 .[id number] PRN PER PROTOCOL Protocol 0.05 MCG/KG/MIN Insulin Glargine 38 unit 04/13/25 09:00 05/11/25 09:39 Insulin Glargine (Lantus) 5 Unit/0.05 Ml (Per 5 Units) SC 05/13/25 08:59 38 unit QDAY KOURTNEY Administration Insulin Human Lispro 0 unit 04/13/25 00:00 05/11/25 13:00 Insulin Lispro (Admelog) 1 Unit/0.01 Ml Unit SC 05/13/25 00:00 1 unit Q6HR KOURTNEY Administration Protocol Lansoprazole 30 mg 05/05/25 09:00 05/11/25 09:38 Lansoprazole 30 Mg Tab.Rap.Dr DUARTE 06/04/25 08:59 30 mg QDAY KOURTNEY Administration Midazolam HCl 2 mg 05/11/25 13:12 Midazolam Inj 1 Mg/Ml Vial 2 Ml IVP 05/14/25 15:59 Q2HR PRN AGITATION Ondansetron HCl 4 mg 04/12/25 23:27 04/17/25 05:28 Ondansetron Inj 2 Mg/Ml Inj 2 Ml IVP 05/12/25 23:26 4 mg Q6H PRN Administration NAUSEA OR VOMITING Protocol Pharmacy Consult 1 each 04/24/25 08:43 Pharmacy Renal Dose Adjustment 1 Ea XX 05/24/25 08:42 PRN PRN CONSULT Pharmacy Consult 1 each 05/09/25 13:15 Vancomycin Pharmacy To Dose 1 Each Each IV 06/08/25 13:14 QDAY PRN PROTOCOL Polyethylene Glycol 34 gm 05/02/25 09:00 05/11/25 10:28 Polyethylene Glycol 17 Gm Packet GT 06/01/25 08:59 Not Given QDAY KOURTNEY Sennosides 2 tab 05/02/25 09:00 05/11/25 09:38 Senna Tablet GT 06/01/25 08:59 2 tab QDAY KOURTNEY Administration Protocol Sodium Hypochlorite 473 ml 05/06/25 21:00 05/11/25 09:38 Sod Hypochlorite 1/4 Str 473 Ml Btl IRRIG 06/05/25 20:59 473 ml BID KOURTNEY Administration Zinc Sulfate 220 mg 04/18/25 09:00 05/11/25 09:38 Zinc Sulfate 220 Mg Capsule GT 05/18/25 08:59 220 mg QDAY KOURTNEY Administration Plan Assessment 64-year-old male with past medical history of DM2, hypertension, A-fib, and Jehova's witness was admitted to the ICU on 02/27/2025 for shock and acute hypoxic respiratory failure. He is s/p laparoscopic J-tube placement from [facility]. #Acute on Chronic Respiratory Failure secondary to mucos plug #Healthcare-Associated Pneumonia #Leukocytosis Patient noted to have acute on chronic respiratory failure, required bronchoscopy w/ mucos plugs removed. Previous sputum Pseudomnas (04/03/2025) Plan -Continue Zosyn and Vancomycin (05/09/2025- -Blood culture obtained -Follow cultures -Blow-by during the day, mechanical ventilation at night as needed at baseline, currently on mechanical ventilation -DuoNeb, Mucomyst and chest physiotherapy scheduled #Paroxysmal atrial fibrillation Per cardiology there is a concern of heart block, tachybradycardia syndrome as well. [id number]-GABm score of 3 points indicating 3.2% risk of stroke per year HAS-BLED: 3. High risk of major bleeding Plan: - Will continue to hold amiodarone p.o. for now. If patient goes back into A-fib with stable blood pressure will start on amiodarone IV - Cardiology consulted, appreciate recommendations - Patient will need anticoagulation, will consider resuming in a.m. as hemoglobin has been stable #Congestive heart failure, HFpEF 65% #Diastolic dysfunction, grade 3 #Pulmonary hypertension #BASIA/OHS #Moderate to severe a AOV calcification with no stenosis Patient has a past medical history of right heart faillure, Diastolic dysfucntion, and HFpEF 65% likely in the setting of cardiomypoathy seconadary to morbid obesity form BASIA/OHS. Given Cxr noted with prominent vascular congestion, consider repeat BNP, although hemodynamically unstable given pressors but may consider. No pheriphearl edema noted. Cxr (05/09/2025): Mild Heart Failure, Prominent vascular congestion and Moderate to large right pleural effusion Echo (04/29/2025): Normal LV size and function. Estimated EF of 65%. Grade III Diastolic Dysfunction.Right ventricle is dilated with mild RV dysfunction RVSP 47mmHg. RAP 15mmHg.Severe biatrial dilation.Moderate to Severe AOV calcification with no stenosis <ild tricuspid regurgitation. No pericardial effusion. Plan -Bumex 2 mg IVP BID-currently on hold -Patient 1500 cc/day fluid restriction, daily weights, tube feeds resumed -K >4 and Mg >2 #Decubitus ulcer status post excisional debridement of sacral decubitus ulcer Recent debridement of large decubitus ulcer on 05/02/2025 likely secondary to morbid obestiy and lack of mobility. 04/29: excisional debridement of sacral decubitus ulcer, washout and placement of wound VAC. 05/02: Patient had significant bleeding overnight, wound VAC leaked. Hemoglobin stable this morning, patient's bleeding from wound overnight was controlled with suture ligation. Wound was assessed by general surgeon, patient was transitioned back to red dry dressings daily. plan -General Surgery consulted, wound care per general surgery recommendations #Acute kidney injury-suspicion of ischemic ATN?resolving #Fluid overload, improving #Acute on chronic hypoxic respiratory failure, improving. Patient looks clinically hypervolemic at this time 04/20 ? Attempt was made to place Fuller catheter however unable to pass catheter due to significant resistance and attempt was terminated. Discussed with nursing about possibility of weighing briefs daily. Patient had temporary hemodialysis catheter placed 04/24, receiving dialysis had 1 L removed on 04/24, 2 L on 04/25, 2.14 on 04/26, 2.1 L on 04/29; temporary dialysis catheter discontinued on 05/06 Plan: -Continue to hold Bumex. -Monitor urine output -Avoid nephrotoxic agents -Renally dose medication #Jejunostomy tube #Abdominal abscess Patient report said that there was an intra-abdominal abscess that have could have been from a perforated ulcer in the past See also note reviewed, mentions that patient likely had a marginal ulcer, but also was not seen on EGD without, currently patient has no abdominal tenderness and is totally asymptomatic. No current drain at this time Patient is status post laparoscopic J-tube placement and is currently on feeds Patient will continue to have this tube and will likely go to a long-term care facility with this until patient can swallow safely Plan: ? Completed antibiotic treatment. ? Monitor vitals closely # Normocytic normochromic anemia Multifactorial. Patient's baseline hemoglobin throughout the hospitalization has been in the range 9?11, patient did have some bleeding from wound VAC site on 05/02 which was controlled by suture ligation by general surgery. Had recurrent bleeding and eventually heparin drip was held. 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 Was given another dose of ferumoxytol 05/06. - Will repeat CBC as needed #Right internal jugular venous thrombosis #Right arm swelling Continuing free water flushes, patient has gone multiple days of heparin drip since 04/01 Right upper extremity ultrasound May 04-shows right IJ thrombus Plan: ? Heparin drip is being held due to recurrent bleeding from sacral ulcer #Morbid obesity #DM2 A1C 7.6 on 03/05/2025 Patient has a BMI of 79.5->68.7 Plan: - ISS scale 2 - Hypoglycemia protocol ordered - 38 units of Lantus. #Health Maintenance Disposition: Telemetry DVT prophylaxis: Heparin drip being held due to significant bleeding. GI prophylaxis: Protonix Diet: 2Cal Tube Feeds with 30 cc/hour water flush CODE STATUS: Full code Patient plan of care was discussed with the attending physician, Dr. Turcios. Elizabeth Lamas PGY1 Attending Provider Attestation/Addendum I have discussed and was present for the essential components of the history, physical examination, diagnosis, and treatment plan with the resident. I agree with the patient's care as documented by the resident and amended herein by me. Arnol Turcios DO. Although this document has been carefully reviewed, there may still be some phonetic and other typographical errors. These errors are purely grammatical due to imperfections in the software program and should not be construed in any way to compromise the substance of the patient's medical care during this visit.
[2025-05-11] MEDS: GABAPENTIN 100 MG CAPSULE PO ×2 (15:43→21:35)
--- NOTE | 2025-05-11 19:08 | PD.IMPROG ---
Documentation for date of: 05/11/25 Subjective Subjective Interval history: Patient seen and examined at bedside. No new cardiac complaints at the present point of time Telemetry reviewed and patient still continues to be in atrial fibrillation but rate controlled. No new evidence of any bradycardia or heart block or any RVR episodes. Phenylephrine drip has been discontinued and patient blood pressure continues to be stable. Continue oral amiodarone for rate control. Explained to the patient that if he develops tachybradycardia syndrome then he will need a permanent pacemaker but given his shoe sacral ulcer with recurrent infections he would be at high risk of pacemaker infections which will lead to pacemaker removal and both procedures which will involve complications. Explained this in detail with the patient. No need of any pacemaker at the present point of time and continue to monitor telemetry No dialysis performed by nephrology yesterday as patient's hemoglobin continues to be low at 7.0 and patient is a Zoroastrianism. Nephrology also did discuss goals of care with the patient. Patient at this point of time he is considering all options, but at present time wants to continue full treatment. Exam Vital Signs Temp Pulse Resp BP Pulse Ox O2 Del Method O2 Flow Rate 97.6 F 80 22 H 103/76 100 Mechanical Ventilation 10 05/11/25 16:00 05/11/25 16:00 05/11/25 16:00 05/11/25 16:00 05/11/25 16:00 05/11/25 08:00 05/11/25 14:41 FiO2 50 05/11/25 15:00 Narrative Exam General Appearance: Alert & Oriented X1, well-nourished male who is lying in bed in no acute distress. Extensive decubitus ulcers. HEENT: Skull symmetrical and atraumatic. Conjunctivae pale pink and moist. Pupils equal, round, reactive to light and accommodation (PERRL). Tracheostomy noted Cardio: Normal Rate and Rhythm with S1 and S2 heart sounds. No murmurs or extra heart sounds auscultated. No bruits on carotid auscultation. No peripheral edema or cyanosis. Lungs: Symmetric expansion. Reduced vesicular breath sounds, secondary to body habitus Abdomen: Non-tender, Non-distended, Normal Reactive Bowel Sounds Neuro: Yes Alert, NO cooperative, Yes oriented to person, No place, and NO time. Speech Not clear. CN grossly intact. Skin: Large sacral ulcer present but not examined and reviewed pictures from today from wound care. Objective Labs 05/11/25 04:55 05/11/25 04:55 Labs: Laboratory Results - last 24 hr 05/11/25 04:55 WBC 19.1 H RBC 2.55 L Hgb 7.4 L Hct 23.5 L MCV 92 MCH 29.0 MCHC 31.5 RDW Std Deviation 59.8 H Plt Count 382 Neut % (Auto) 67 Lymph % (Auto) 19 [place] % (Auto) 12 Eos % (Auto) 1 Baso % (Auto) 0 Neut # (Auto) 12.9 H Lymph # (Auto) 3.7 [place] # (Auto) 2.3 H Eos # (Auto) 0.1 Baso # (Auto) 0.0 Immature Gran # (Auto) 0.13 H Absolute Nucleated RBC 0.00 Immature Gran % 1 H Nucleated RBC % 0 Sodium 141 Potassium 4.6 Chloride 100 Carbon Dioxide 30.3 Anion Gap 11 BUN 104 H* Creatinine 3.3 H Estim Creat Clear Calc 36.6 L eGFR 20 L BUN/Creatinine Ratio 32 H Glucose 154 H Calculated Osmolality 316 H Calcium 8.9 Corrected Calcium 9.5 Phosphorus 3.6 Magnesium 2.7 H Albumin 3.3 L Random Vancomycin 19.8 ABG Interpretation ABG results: 04/18/25 04/18/25 04/18/25 04:40 06:27 10:30 ABG pH 7.28 L 7.33 L 7.36 ABG pCO2 72 H* 67 H 61 H ABG pO2 132 H 60 L D 60 L ABG HCO3 34 H 35 H 34 H ABG O2 Saturation 100 H 93 93 ABG Base Excess 6 H 7 H 8 H 04/19/25 05/10/25 08:53 07:40 ABG pH 7.47 H D 7.52 H ABG pCO2 45 D 40 ABG pO2 66 L 60 L ABG HCO3 33 H 32 H ABG O2 Saturation 96 94 ABG Base Excess 8 H 8 H Assessment & Plan A&P Narrative 64-year-old male, Zoroastrianism with a past medical history of hypertension, diabetes mellitus type 2, history of atrial fibrillation, CHF HFpEF 65%, grade 3 diastolic dysfunction, right heart failure, RSVP 47, moderate to severe ALB calsifications with no stenosis, status post tracheostomy, s/p PEG Tube at [facility], bariatric team, history of dyspahagia, extensive decubitus ulcers, CKD, history of anemia, history of Diego-en- Y gastric bypass, BASIA/OHS, and morbid obesity. Patient was upgraded to ICU for a third time with in acute respiratory respiratory failure secondary to mucous plug and shock, likely cardiogenic shock secondary to complete heart block requiring pressors. # Bradycardia and questionable complete heart block #A-fib with RVR, hemodynamically unstable-cardioverted #Paroxysmal atrial fibrillation Cardiology was consulted 05/09/2025 for significant bradycardia requiring external temporary transcutaneous pacing. Patient was also hypoxic and was transferred to the ICU. Plan was to place a temporary transvenous pacemaker if the patient continues to be bradycardic as he was 100% dependent on the transcutaneous pacing. Bronchoscopy was performed which showed small mucous plug which was removed and patient rhythm was back to his atrial fibrillation with RVR. Patient was on dopamine at that point of time. Patient blood pressure was on the lower side and was unstable and required cardioversion x 1. Dopamine drip was stopped along with Levophed and recommended patient to be placed on phenylephrine drip given the history of the atrial fibrillation with RVR. Continue amiodarone for now for rate control no beta-blockers or calcium channel blockers secondary to the hypotension. EF is preserved on the last echocardiogram. Patient vital signs stabilized after the phenylephrine drip and rate is now controlled between 70 to 90 bpm. Patient has multiple comorbidities as mentioned above and his prolonged hospitalization. He has a significantly large decubitus ulcers which is also contributing to the sepsis and apparently worsening since his admission. Patient is presently ventilator dependent and has a tracheostomy in place along with a jejunostomy. Discussed with the family about his present diagnosis, treatment plan and also discussed with them the goals of care. Discussed with the family regarding the prolonged hospitalization, his multiple comorbidities and the unhealing decubitus ulcer with minimal improvement and family is also going to speak about the goals of care with the primary team. Shock possible multifactorial in the setting of hypoxic respiratory failure along with the bradycardia and underlying sepsis 05/10/2025: Telemetry reviewed and patient still continues to be in atrial fibrillation but rate controlled. No new evidence of any bradycardia or heart block or any RVR episodes. Phenylephrine drip has been discontinued and patient blood pressure continues to be stable. Continue oral amiodarone for rate control. Explained to the patient that if he develops tachybradycardia syndrome then he will need a permanent pacemaker but given his shoe sacral ulcer with recurrent infections he would be at high risk of pacemaker infections which will lead to pacemaker removal and both procedures which will involve complications. Explained this in detail with the patient. No need of any pacemaker at the present point of time and continue to monitor telemetry No dialysis performed by nephrology yesterday as patient's hemoglobin continues to be low at 7.0 and patient is a Zoroastrianism. Nephrology also did discuss goals of care with the patient. Patient at this point of time he is considering all options, but at present time wants to continue full treatment. CHADVASC 3 Plan -Phynelephrine drip 0.1 mg/kg/min given the patient's history of atrial fibrillation. -given recent cardioversion, recommend heparin drip and then Xarelto - Previously Xarelto was being held in the setting of large decubitus ulcer-anticoagulation has been held. -continue to wean off as blood pressure permits -Amiodarone, holding off #Congestive heart failure #CHF HFpEF 65% #Diastolic dysfunction, grade 3 #Pulmonary hypertension #BASIA/OHS #Moderate to severe a AOV calcification with no stenosis #Moderat to Large Pleural Effusion Patient has a past medical history of right heart faillure, Diastolic dysfucntion, and HFpEF 65% likely in the setting of cardiomypoathy seconadary to morbid obesity form BASIA/OHS. Given Cxr noted with prominent vascular congestion, consider repeat BNP, although hemodynamically unstable given pressors but may consider. No pheriphearl edema noted. Patient's previous Dry weight: 197.9 & Dry BNP 135. Previous [place] Mary 03/19/2025: RAP 8, PAP 27, PCWP 7. BNP____;current cathy/ght 197 Troponin 05/09/2025: <0.02 Cxr (05/09/2025): Mild Heart Failure, Prominent vascular congestion and Moderate to large right pleural effusion Echo (04/29/2025): Normal LV size and function. Estimated EF of 65%. Grade III Diastolic Dysfunction.Right ventricle is dilated with mild RV dysfunction RVSP 47mmHg. RAP 15mmHg.Severe biatrial dilation.Moderate to Severe AOV calcification with no stenosis <ild tricuspid regurgitation. No pericardial effusion. Plan -Bumex 2 mg IVP BID-currently on hold -Consider repeat TSH & BNP AM -Consider fluid resprictions given pleural effusion, prominent vascular congestion, and repeat BNP -Consider Fluid Restrictions -Consider repeat echo given complete heart block -K >4 and Mg >2 #Acute on Chronic Respiratory Failure secondary to mucos plug #Healthcare-Associated Pneumonia #Leukocytosis Patient noted to have acute on chronic respiratory failure, required bronchoscopy w/ mucos plugs removed. Previous sputum Pseudomnas (04/03/2025) Plan -Zosyn (05/09/2025) -Blood culture obtained -Bronchial washing MRSA negative #Large Sacrale Decubitus Ulcer s/p excisional debridement (05/02/2025) Recent debridement of large decubitus ulcer on 05/02/2025 likely secondary to morbid obestiy and lack of mobility. plan -Continue abnitbiotics in the setting of leukocytosis & Healthcare associated pneumonia #CKD stage III Patient previously noted to have an KENIA, likely intrinisc per chart review previously had been noted to have worsening BUN now 105 and Cr 2.9. Plan -Continue to monitor BUN Cr -Consider fluid restrictions in setting of CHF history. #Jejunostomy #history of abdominal abscess s/p percutaneous drainage Plan -Tube feedings currently held #Diabetes Mellitus Type 2 non insulin depedent Patient has past medical history of diabetes mellitus type 2 non insulin depent but since admsision, in february 2025, patient has been started on insulin. Patinents fasting glucose has been less than 180. A1c (03/05/2025): 7.6% #Normocytic Anemia History of normocytic anemia likely secondayr to anemia of chronic disease vs blood loss secondary to large decubitus ulcer. 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 DVT ppx: SCDs GI ppx: Protonix 40mg qD Mechanical ventilattion: Yes, Mode: ACVC VT 500, RR 20, PEEP 8, FiO2 75%no Sedation: Yes, Fentanyl (CPOT 0-1)-currenlty not given IV lines: 2 pIV Central line: No Arterial line: No Fuller: No Code status: FULL CODE There is a high probability of sudden, clinically significant or life threatening deterioration in the patient condition which required the highest level of physician preparedness to intervene urgently. I have personally spent 65 minutes of critical care time, exclusive of time spent on any procedures, in evaluation and management of this critically ill patient. Management of rest of the medical conditions as per primary team and other consultants. Thank you for the consult and allowing me to participate in the care of the patient. Cardiology will continue to follow. Kobe Barahona M.D. Interventional Cardiology Time Spent With Patient Time: Total time spent is greater than 50% in coordination of care (as documented) at patient's floor/unit and/or counseling patient:
[2025-05-12] VITALS (21 sets, daily range): BP systolic 81–106; BP diastolic 59–73; PULSE 72–88; RESP 18–29; TEMP 36.3–36.8; O2SAT 93–100; BMI 68.1
[2025-05-12] MEDS: INSULIN LISPRO (AdmeLOG) 1 UNIT/0.01 ML UNIT SC ×5 (00:18→23:12)
[2025-05-12] MEDS: PIPER/TAZO INJ 4.5 GM in SODIUM CHLORIDE 0.9% (POP) 100 ML IV ×3 (05:54→21:04)
[2025-05-12] MEDS: GABAPENTIN 100 MG CAPSULE PO ×3 (05:54→21:04)
[2025-05-12 05:58] LABS: Basophils # (Auto) 0.1 Thou/mm3 (0.0-0.2); Basophils % (Auto) 0 % (0-2.5); Eosinophils # (Auto) 0.3 Thou/mm3 (0.0-0.5); Eosinophils % (Auto) 1 % (0-10); Hematocrit 23.2 % (41.0-53.0); Immature Granulocytes Auto 0.21 Thou/mm3 (0.00-0.00); Lymphocytes # (Auto) 3.1 Thou/mm3 (1.0-4.8); Lymphocytes % (Auto) 15 % (10-50); Mean Corpuscular HGB Conc 30.6 g/dl (31.0-37.0); Mean Corpuscular Hemoglobin 28.2 pg (25.0-35.0); Mean Corpuscular Volume 92 fL (80-100); Monocytes # (Auto) 1.9 Thou/mm3 (0.0-0.8); Monocytes % (Auto) 9 % (0-12); Neutrophils # (Auto) 15.9 Thou/mm3 (1.8-7.7); Neutrophils % (Auto) 74 % (37-80); Nucleated Red Blood Cell # 0.00 Thou/mm3 (0.00-0.00); Nucleated Red Blood Cell % 0 /100 WBC (0); Platelet Count 371 Thou/mm3 (140-440); RDW Standard Deviation 58.8 fL (35.1-43.9); Red Blood Count 2.52 Miln/mm3 (4.50-5.90); White Blood Count 21.6 Thou/mm3 (3.8-10.6)
[2025-05-12 06:23] LABS: Hemoglobin 7.1 g/dL (13.5-16.0)
[2025-05-12 07:00] LABS: Alanine Aminotransferase 20 U/L (10-49); Albumin, Serum 3.3 gm/dL (3.4-4.8); Albumin/Globulin Ratio 1.2 (1.2-2.2); Anion Gap 11 (7-16); Aspartate Amino Transferase 89 U/L (0-34); Bilirubin,Total 0.4 mg/dL (0.3-1.2); Calcium 8.8 mg/dL (8.3-10.6); Calcium (Corrected) 9.4 mg/dL (8.5-10.1); Carbon Dioxide 27.1 mMol/L (20.0-31.0); Chloride 103 mMol/L (98-107); Creatinine (Component) 3.5 mg/dL (0.6-1.3); Estimated Creatinine Clearance 34.5 mL/min (>60); Globulin 2.8 gm/dL (2.3-3.5); Glucose 181 mg/dL (74-106); Magnesium 2.7 mg/dL (1.6-2.6); Phosphorous 3.9 mg/dL (2.4-5.1); Potassium 4.6 mMol/L (3.4-5.1); Sodium 141 mMol/L (136-145); Thyroid Stimulating Hormone 1.82 uIU/mL (0.55-4.78); Total Protein 6.1 gm/dL (5.7-8.2); Vancomycin,Random 16.2 mcg/mL; eGFR 19 See Note
[2025-05-12 07:12] LABS: Alkaline Phosphatase 238 U/L (46-116); BUN/Creatinine Ratio 29 Ratio (12-20); Osmolality,Calculated 318 (275-295)
[2025-05-12 07:20] LABS: B-Type Natriuretic Peptide 672 pg/mL (0-100)
[2025-05-12 07:26] LABS: Blood Urea Nitrogen 102 mg/dL (9-23)
[2025-05-12] MEDS: ACETYLCYSTEINE RT SOL 10% 4 ML NEBU 3 ML INH ×2 (07:31→23:00)
[2025-05-12] MEDS: ALBUTEROL/IPRATROPIUM (Duoneb) RT SOL 3 ML NEBU INH ×3 (07:32→23:00)
[2025-05-12] MEDS: ZINC SULFATE 220 MG CAPSULE GT (10:19)
[2025-05-12] MEDS: INSULIN GLARGINE (Lantus) 5 UNIT/0.05 ML (PER 5 UNITS) 38 UNIT SC (10:19)
[2025-05-12] MEDS: SOD HYPOCHLORITE 1/4 STR 473 ML BTL IRRIG ×2 (10:19→21:04)
[2025-05-12] MEDS: ASCORBIC ACID 250 MG TABLET 500 MG GT ×2 (10:19→21:02)
[2025-05-12] MEDS: LANSOPRAZOLE 30 MG TAB.RAP.DR GT (10:19)
[2025-05-12] MEDS: BUMETANIDE INJ 0.25 MG/ML VIAL 4 ML 1 MG IVP ×2 (11:25→17:36)
--- NOTE | 2025-05-12 12:11 | PD.RESPRO ---
Documentation for date of: 05/12/25 Subjective Subjective Interval history: Patient is seen and examined at bedside, patient has no current complaints. Bilateral lower extremity edema noted, patient has worsening renal function, seems to be fluid overloaded, will be started on IV Bumex. Discussed with [employer] sales consultant?will start on amiodarone previous dose, 200 mg daily. Per cardiology patient is a poor candidate for pacemaker placement, patient was informed at bedside by cardiology team. He verbalized understanding. Patient being followed by nephrology, nephrology agrees with diuresis for now, will need close monitoring, poor candidate for dialysis due to body habitus and also has chronic anemia with wound bleeding from sacral region-pipeline controller did discuss with patient in detail, he verbalizes understanding. Discussed regarding CODE STATUS with patient-requesting to be full code. Patient wants all active measures in case of emergency. Will switch vancomycin to doxycycline considering vancomycin's nephrotoxicity, will follow cultures. Exam Vital Signs Temp Pulse Resp BP Pulse Ox O2 Del Method O2 Flow Rate 97.5 F 79 22 H 97/61 98 Room Air 10 05/12/25 04:00 05/12/25 11:25 05/12/25 07:32 05/12/25 11:25 05/12/25 07:32 05/12/25 04:00 05/11/25 14:41 FiO2 50 05/12/25 07:32 Narrative Exam Constitutional: Alert, oriented x 3 and mild distress. Nods to questions, has white board for writing. Elderly male, morbidly obese, MMM. HEENT: Vision grossly intact. Patent nares. Trachea midline. Tracheostomy tube in situ, exit site clean. Respiratory: Chest normal on inspection and decreased air entry in all lung sims, transmitted sounds and congestion on anterior chest wall, middle and upper lobes. Cardiovascular: S1 and S2 audible, RRR. No murmurs carotid bruit. No gross JVD. Abdominal: Soft, obese and non tender to palpation in all quadrants. BS +. Jejunostomy tube in situ, exit site clean Genitourinary: No bladder tenderness, no flank pain. Normal to palpation Musculoskeletal: Extremities tone within normal limits. 2+ bilateral lower extremity edema. Neurological: CN II - XII grossly intact. Extremity motor and sensation grossly intact. Skin: Warm, dry and intact. 10 x 5 large sacral decubitus ulcer, necrotic tissue noted, easily friable. Sanguinous oozing Psychiatric: Patient has good affect, is cooperative Objective Labs 05/13/25 08:58 05/13/25 05:29 Labs: Laboratory Results - last 24 hr 05/12/25 05:00 WBC 21.6 H RBC 2.52 L Hgb 7.1 L Hct 23.2 L MCV 92 MCH 28.2 MCHC 30.6 L RDW Std Deviation 58.8 H Plt Count 371 Neut % (Auto) 74 Lymph % (Auto) 15 Price % (Auto) 9 Eos % (Auto) 1 Baso % (Auto) 0 Neut # (Auto) 15.9 H Lymph # (Auto) 3.1 Price # (Auto) 1.9 H Eos # (Auto) 0.3 Baso # (Auto) 0.1 Immature Gran # (Auto) 0.21 H Absolute Nucleated RBC 0.00 Immature Gran % 1 H Nucleated RBC % 0 Sodium 141 Potassium 4.6 Chloride 103 Carbon Dioxide 27.1 Anion Gap 11 BUN 102 H* Creatinine 3.5 H Estim Creat Clear Calc 34.5 L eGFR 19 L BUN/Creatinine Ratio 29 H Glucose 181 H Calculated Osmolality 318 H Calcium 8.8 Corrected Calcium 9.4 Phosphorus 3.9 Magnesium 2.7 H Total Bilirubin 0.4 AST 89 H ALT 20 Alkaline Phosphatase 238 H D B-Natriuretic Peptide 672 H* Total Protein 6.1 Albumin 3.3 L Globulin 2.8 Albumin/Globulin Ratio 1.2 TSH 1.82 Random Vancomycin 16.2 ABG Interpretation ABG results: 04/18/25 04/18/25 04/18/25 04:40 06:27 10:30 ABG pH 7.28 L 7.33 L 7.36 ABG pCO2 72 H* 67 H 61 H ABG pO2 132 H 60 L D 60 L ABG HCO3 34 H 35 H 34 H ABG O2 Saturation 100 H 93 93 ABG Base Excess 6 H 7 H 8 H 04/19/25 05/10/25 08:53 07:40 ABG pH 7.47 H D 7.52 H ABG pCO2 45 D 40 ABG pO2 66 L 60 L ABG HCO3 33 H 32 H ABG O2 Saturation 96 94 ABG Base Excess 8 H 8 H Quality Measures Quality Measures VTE therapy Advance care planning discussed with:: patient Assessment & Plan Assessment Current Active Medications: Generic Name Dose Route Start Last Admin Trade Name Freq PRN Reason Stop Dose Admin Acetaminophen 650 mg 05/01/25 08:47 05/06/25 07:14 Acetaminophen 325 Mg Tablet PO 05/22/25 20:42 650 mg Q6HR PRN Administration pain 1-3 OR Fever >100.4 Acetylcysteine 3 ml 05/10/25 15:00 05/12/25 07:31 Acetylcysteine Rt Gloria 10% 4 Ml Nebu INH 06/09/25 14:59 3 ml Q8HRRT KOURTNEY Administration Albuterol/Ipratropium 3 ml 05/10/25 15:00 05/12/25 07:32 Albuterol/Ipratropium (Duoneb) Rt Gloria 3 Ml Nebu INH 06/09/25 14:59 3 ml Q8HRRT KOURTNEY Administration Artificial Tears 0 drop 04/14/25 19:33 05/07/25 20:31 Artificial Tears 225 Drop/15 Ml Btl BOTH EYES 05/14/25 19:32 1 drop PRN PRN Administration TO KEEP EYES MOIST Ascorbic Acid 500 mg 04/17/25 21:00 05/12/25 10:19 Ascorbic Acid 250 Mg Tablet GT 05/17/25 20:59 500 mg BID KOURTNEY Administration Bumetanide 1 mg 05/12/25 10:00 05/12/25 11:25 Bumetanide Inj 0.25 Mg/Ml Vial 4 Ml IVP 06/11/25 09:59 1 mg BIDD KOURTNEY Administration Dextrose 25 ml 04/12/25 23:32 04/24/25 05:27 Dextrose 50%-Water Inj 50 Ml Syringe IV 05/12/25 23:31 25 ml Q15MIN PRN Administration BG 50-70 responsive npo pt Dextrose 50 ml 04/12/25 23:32 Dextrose 50%-Water Inj 50 Ml Syringe IV 05/12/25 23:31 Q15MIN PRN BG <50 OR BG <70 & pt unresponsive Gabapentin 100 mg 05/11/25 14:05 05/12/25 05:54 Gabapentin 100 Mg Capsule PO 06/10/25 14:04 100 mg TID KOURTNEY Administration Glucagon 1 mg 04/12/25 23:32 Glucagon Inj 1 Mg Vial IM Q15MIN PRN BG <70, and no IV access Albumin Human 25 gm in 100 mls @ 100 mls/min 04/24/25 11:52 Albuminar-25 Ivpb IV PRN PRN DIALYSIS Piperacillin Sod/Tazobactam 100 mls @ 25 mls/hr 05/09/25 13:03 05/12/25 05:54 Sod 4.5 gm/ Sodium Chloride IV 05/16/25 13:02 25 mls/hr Q8HR KOURTNEY Administration Protocol Doxycycline Hyclate 100 mg/ 100 mls @ 100 mls/hr 05/12/25 21:00 Sodium Chloride IV 05/19/25 20:59 BID KOURTNEY Insulin Glargine 38 unit 04/13/25 09:00 05/12/25 10:19 Insulin Glargine (Lantus) 5 Unit/0.05 Ml (Per 5 Units) SC 05/13/25 08:59 38 unit QDAY KOURTNEY Administration Insulin Human Lispro 0 unit 04/13/25 00:00 05/12/25 05:55 Insulin Lispro (Admelog) 1 Unit/0.01 Ml Unit SC 05/13/25 00:00 2 unit Q6HR KOURTNEY Administration Protocol Lansoprazole 30 mg 05/05/25 09:00 05/12/25 10:19 Lansoprazole 30 Mg Tab.Rap. GT 06/04/25 08:59 30 mg QDAY KOURTNEY Administration Ondansetron HCl 4 mg 04/12/25 23:27 04/17/25 05:28 Ondansetron Inj 2 Mg/Ml Inj 2 Ml IVP 05/12/25 23:26 4 mg Q6H PRN Administration NAUSEA OR VOMITING Protocol Pharmacy Consult 1 each 04/24/25 08:43 Pharmacy Renal Dose Adjustment 1 Ea XX 05/24/25 08:42 PRN PRN CONSULT Sennosides 2 tab 05/02/25 09:00 05/12/25 09:23 Senna Tablet GT 06/01/25 08:59 Not Given QDAY [facility] Protocol Sodium Hypochlorite 473 ml 05/06/25 21:00 05/12/25 10:19 Sod Hypochlorite 1/4 Str 473 Ml Btl IRRIG 06/05/25 20:59 473 ml BID KOURTNEY Administration Zinc Sulfate 220 mg 04/18/25 09:00 05/12/25 10:19 Zinc Sulfate 220 Mg Capsule GT 05/18/25 08:59 220 mg QDAY KOURTNEY Administration Plan Assessment 64-year-old male with past medical history of DM2, hypertension, A-fib, and Jehova's witness was admitted to the ICU on 02/27/2025 for shock and acute hypoxic respiratory failure. He is s/p laparoscopic J-tube placement from [facility]. Was downgraded to telemetry 05/11 for further management. #Acute on Chronic Respiratory Failure secondary to mucos plug #Healthcare-Associated Pneumonia #Leukocytosis Patient noted to have acute on chronic respiratory failure, required bronchoscopy w/ mucos plugs removed. Previous sputum Pseudomnas (04/03/2025) Plan -Continue Zosyn (05/09/2025-, vancomycin was discontinued (05/09/2025-05/12/25) started on doxycycline (05/12/25- -Follow cultures -Blow-by during the day, mechanical ventilation at night as needed at baseline, currently on mechanical ventilation -DuoNeb, Mucomyst and chest physiotherapy scheduled #Paroxysmal atrial fibrillation Per cardiology there is a concern of heart block, tachybradycardia syndrome as well. [id number] score of 3 points indicating 3.2% risk of stroke per year HAS-BLED: 3. High risk of major bleeding Discussed with [employer] retailer sales consultant?will start on amiodarone previous dose, 200 mg daily. Per cardiology patient is a poor candidate for pacemaker placement, patient was informed at bedside by cardiology team. He verbalized understanding. Plan: - Resumed p.o. amiodarone. - Cardiology consulted, appreciate recommendations - Patient will need anticoagulation, however has low hemoglobin, bleeding wound will defer anticoagulation for now. #Congestive heart failure, HFpEF 65% #Diastolic dysfunction, grade 3 #Pulmonary hypertension #BASIA/OHS #Moderate to severe a AOV calcification with no stenosis Patient has a past medical history of right heart faillure, Diastolic dysfucntion, and HFpEF 65% likely in the setting of cardiomypoathy seconadary to morbid obesity form BASIA/OHS. Given Cxr noted with prominent vascular congestion, consider repeat BNP, although hemodynamically unstable given pressors but may consider. No pheriphearl edema noted. Cxr (05/09/2025): Mild Heart Failure, Prominent vascular congestion and Moderate to large right pleural effusion Echo (04/29/2025): Normal LV size and function. Estimated EF of 65%. Grade III Diastolic Dysfunction.Right ventricle is dilated with mild RV dysfunction RVSP 47mmHg. RAP 15mmHg.Severe biatrial dilation.Moderate to Severe AOV calcification with no stenosis <ild tricuspid regurgitation. No pericardial effusion. Plan -Started on Bumex 1 mg IVP twice daily, will assess response and uptitrate as needed in the morning -Patient 1500 cc/day fluid restriction, daily weights, tube feeds resumed -K >4 and Mg >2 #Acute kidney injury-suspicion of ischemic ATN #Fluid overload #Acute on chronic hypoxic respiratory failure, improving. Patient looks clinically hypervolemic at this time 04/20 ? Attempt was made to place Fuller catheter however unable to pass catheter due to significant resistance and attempt was terminated. Discussed with nursing about possibility of weighing briefs daily. Patient had temporary hemodialysis catheter placed 04/24, receiving dialysis had 1 L removed on 04/24, 2 L on 04/25, 2.14 on 04/26, 2.1 L on 04/29; temporary dialysis catheter discontinued on 05/06 Patient being followed by nephrology, nephrology agrees with diuresis for now, will need close monitoring, poor candidate for dialysis due to body habitus and also has chronic anemia with wound bleeding from sacral region-pipeline controller did discuss with patient in detail, he verbalizes understanding. Plan: -Started on Bumex 1 mg twice daily, will uptitrate as needed -Will switch vancomycin to doxycycline considering vancomycin's nephrotoxicity, will follow cultures. -Monitor urine output -Avoid nephrotoxic agents -Renally dose medication #Decubitus ulcer status post excisional debridement of sacral decubitus ulcer Recent debridement of large decubitus ulcer on 05/02/2025 likely secondary to morbid obestiy and lack of mobility. 04/29: excisional debridement of sacral decubitus ulcer, washout and placement of wound VAC. 05/02: Patient had significant bleeding overnight, wound VAC leaked. Hemoglobin stable this morning, patient's bleeding from wound overnight was controlled with suture ligation. Wound was assessed by general surgeon, patient was transitioned back to red dry dressings daily. plan -General Surgery consulted, wound care per general surgery recommendations #Jejunostomy tube #Abdominal abscess Patient report said that there was an intra-abdominal abscess that have could have been from a perforated ulcer in the past See also note reviewed, mentions that patient likely had a marginal ulcer, but also was not seen on EGD without, currently patient has no abdominal tenderness and is totally asymptomatic. No current drain at this time Patient is status post laparoscopic J-tube placement and is currently on feeds Patient will continue to have this tube and will likely go to a long-term care facility with this until patient can swallow safely Plan: ? Completed antibiotic treatment. ? Monitor vitals closely # Normocytic normochromic anemia Multifactorial. Patient's baseline hemoglobin throughout the hospitalization has been in the range 9?11, patient did have some bleeding from wound VAC site on 05/02 which was controlled by suture ligation by general surgery. Had recurrent bleeding and eventually heparin drip was held. - Patient is a Baptism, denies any blood transfusion/blood products - Patient will be given erythropoietin x 1 and ferumoxytol IV x 1 to improve underlying anemia. Was given another dose of ferumoxytol 05/06. - Will repeat CBC as needed #Right internal jugular venous thrombosis #Right arm swelling Continuing free water flushes, patient has gone multiple days of heparin drip since 04/01 Right upper extremity ultrasound May 04-shows right IJ thrombus Plan: ? Heparin drip is being held due to recurrent bleeding from sacral ulcer #Morbid obesity #DM2 A1C 7.6 on 03/05/2025 Patient has a BMI of 79.5->68.7 Plan: - ISS scale 2 - Hypoglycemia protocol ordered - 38 units of Lantus. #Health Maintenance Disposition: Telemetry DVT prophylaxis: None, patient is Baptism and has a bleeding sacral wound GI prophylaxis: Protonix Diet: 2Cal Tube Feeds with 30 cc/hour water flush CODE STATUS: Full code Patient plan of care was discussed with the attending physician, Dr. Turcios. Elizabeth Lamas PGY1 Attending Provider Attestation/Addendum I have discussed and was present for the essential components of the history, physical examination, diagnosis, and treatment plan with the resident. I agree with the patient's care as documented by the resident and amended herein by me. Arnol Turcios DO. Although this document has been carefully reviewed, there may still be some phonetic and other typographical errors. These errors are purely grammatical due to imperfections in the software program and should not be construed in any way to compromise the substance of the patient's medical care during this visit.
[2025-05-12] MEDS: AMIODARONE HCL 200 MG TABLET GT (14:38)
--- NOTE | 2025-05-12 14:41 | ESPR_ITS ---
Documentation for date of: 05/12/25 Subjective Subjective Interval history: Mr. Ortega is a 64-year-old male with a past medical history of type 2 diabetes mellitus, history of ATN, A-fib, hypertension, severe right-sided heart failure, HFpEF, severe BASIA, status post tracheostomy and jejunostomy, patient was previously admitted here for hypoxic respiratory failure requiring mechanical ventilation, was later transferred out to [facility] for jejunostomy tube placement, complicated by abdominal abscess, patient is now transferred back to [facility] for further management. The patient is noted to have pneumonia and acute hypoxic respiratory failure, requiring mechanical ventilation, nephrology was consulted as patient's renal function continues to worsen. Patient had previously required hemodialysis for ATN, but is a poor dialysis candidate outpatient. Patient noted to have significant fluid overload. Team gave 1 dose of Bumex with mild worsening of renal function. 500 cc bolus was given. Renal consultation requested for worsening renal failure in the setting of fluid overload. 05/05/2025 patient resting comfortably in telemetry. Will wait for labs for tomorrow. If creatinine less than 3.4 will DC dialysis catheter. Discharge planning per primary team. Pt is seen and examined pt on vent viatrach Exam Vital Signs Temp Pulse Resp BP Pulse Ox O2 Del Method O2 Flow Rate 97.9 F 82 25 H 102/67 99 Mechanical Ventilation 10 05/12/25 12:01 05/12/25 14:14 05/12/25 14:14 05/12/25 14:07 05/12/25 14:14 05/12/25 12:01 05/11/25 14:41 FiO2 50 05/12/25 14:14 Narrative Exam general on vent via trach chest tanya basal crackles ext plus 32 edema Objective Labs 05/12/25 05:00 05/12/25 05:00 Labs: Laboratory Results - last 24 hr 05/12/25 05:00 WBC 21.6 H RBC 2.52 L Hgb 7.1 L Hct 23.2 L MCV 92 MCH 28.2 MCHC 30.6 L RDW Std Deviation 58.8 H Plt Count 371 Neut % (Auto) 74 Lymph % (Auto) 15 [place] % (Auto) 9 Eos % (Auto) 1 Baso % (Auto) 0 Neut # (Auto) 15.9 H Lymph # (Auto) 3.1 [place] # (Auto) 1.9 H Eos # (Auto) 0.3 Baso # (Auto) 0.1 Immature Gran # (Auto) 0.21 H Absolute Nucleated RBC 0.00 Immature Gran % 1 H Nucleated RBC % 0 Sodium 141 Potassium 4.6 Chloride 103 Carbon Dioxide 27.1 Anion Gap 11 BUN 102 H* Creatinine 3.5 H Estim Creat Clear Calc 34.5 L eGFR 19 L BUN/Creatinine Ratio 29 H Glucose 181 H Calculated Osmolality 318 H Calcium 8.8 Corrected Calcium 9.4 Phosphorus 3.9 Magnesium 2.7 H Total Bilirubin 0.4 AST 89 H ALT 20 Alkaline Phosphatase 238 H D B-Natriuretic Peptide 672 H* Total Protein 6.1 Albumin 3.3 L Globulin 2.8 Albumin/Globulin Ratio 1.2 TSH 1.82 Random Vancomycin 16.2 ABG Interpretation ABG results: 04/18/25 04/18/25 04/18/25 04:40 06:27 10:30 ABG pH 7.28 L 7.33 L 7.36 ABG pCO2 72 H* 67 H 61 H ABG pO2 132 H 60 L D 60 L ABG HCO3 34 H 35 H 34 H ABG O2 Saturation 100 H 93 93 ABG Base Excess 6 H 7 H 8 H 04/19/25 05/10/25 08:53 07:40 ABG pH 7.47 H D 7.52 H ABG pCO2 45 D 40 ABG pO2 66 L 60 L ABG HCO3 33 H 32 H ABG O2 Saturation 96 94 ABG Base Excess 8 H 8 H Assessment & Plan Assessment and plan (1) KENIA (acute kidney injury): Status: Acute Assessment and plan: Creat is worsening Pt dont want to dialysis at this point f/u kidney function closely (2) CHF (congestive heart failure): Status: Acute (3) Atrial fibrillation: Status: Acute (4) Respiratory failure: Status: Acute (5) Pneumonia: Status: Acute Additional Assessment & Plan Additional Plan: Patient now with ischemic ATN with good UOP. await renal recovery (2) CHF (congestive heart failure) Qualifiers: Heart failure chronicity: chronic Heart failure type: right-sided Qualified Code(s): I50.812 - Chronic right heart failure (3) Atrial fibrillation Qualifiers: Atrial fibrillation type: unspecified Qualified Code(s): I48.91 - Unspecified atrial fibrillation
--- NOTE | 2025-05-12 15:48 | ESPR_ITS ---
Documentation for date of: 05/12/25 Subjective Subjective Interval history: Patient seen and examined at bedside. No new cardiac complaints at the present point of time Telemetry reviewed and patient still continues to be in atrial fibrillation but rate controlled. No new evidence of any bradycardia or heart block or any RVR episodes. Phenylephrine drip has been discontinued and patient blood pressure continues to be stable. Continue oral amiodarone for rate control. Explained to the patient that if he develops tachybradycardia syndrome then he will need a permanent pacemaker but given his shoe sacral ulcer with recurrent infections he would be at high risk of pacemaker infections which will lead to pacemaker removal and both procedures which will involve complications. Explained this in detail with the patient. No need of any pacemaker at the present point of time and continue to monitor telemetry No dialysis performed by nephrology as Urine output > 1 L but BUN 102 and cr 3.5. 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 Nephrology also did discuss goals of care with the patient. Patient at this point of time he is considering all options, but at present time wants to continue full treatment. Exam Vital Signs Temp Pulse Resp BP Pulse Ox O2 Del Method O2 Flow Rate 97.9 F 85 25 H 106/73 99 Mechanical Ventilation 10 05/12/25 12:01 05/12/25 14:38 05/12/25 14:14 05/12/25 14:38 05/12/25 14:14 05/12/25 12:01 05/11/25 14:41 FiO2 50 05/12/25 14:14 Narrative Exam General Appearance: Alert & Oriented X1, well-nourished male who is lying in bed in no acute distress. Extensive decubitus ulcers. HEENT: Skull symmetrical and atraumatic. Conjunctivae pale pink and moist. Pupils equal, round, reactive to light and accommodation (PERRL). Tracheostomy noted Cardio: Normal Rate and Rhythm with S1 and S2 heart sounds. No murmurs or extra heart sounds auscultated. No bruits on carotid auscultation. No peripheral edema or cyanosis. Lungs: Symmetric expansion. Reduced vesicular breath sounds, secondary to body habitus Abdomen: Non-tender, Non-distended, Normal Reactive Bowel Sounds Neuro: Yes Alert, NO cooperative, Yes oriented to person, No place, and NO time. Speech Not clear. CN grossly intact. Skin: Large sacral ulcer present but not examined and reviewed pictures from wound care. Objective Labs 05/12/25 05:00 05/12/25 05:00 Labs: Laboratory Results - last 24 hr 05/12/25 05:00 WBC 21.6 H RBC 2.52 L Hgb 7.1 L Hct 23.2 L MCV 92 MCH 28.2 MCHC 30.6 L RDW Std Deviation 58.8 H Plt Count 371 Neut % (Auto) 74 Lymph % (Auto) 15 Cross % (Auto) 9 Eos % (Auto) 1 Baso % (Auto) 0 Neut # (Auto) 15.9 H Lymph # (Auto) 3.1 Cross # (Auto) 1.9 H Eos # (Auto) 0.3 Baso # (Auto) 0.1 Immature Gran # (Auto) 0.21 H Absolute Nucleated RBC 0.00 Immature Gran % 1 H Nucleated RBC % 0 Sodium 141 Potassium 4.6 Chloride 103 Carbon Dioxide 27.1 Anion Gap 11 BUN 102 H* Creatinine 3.5 H Estim Creat Clear Calc 34.5 L eGFR 19 L BUN/Creatinine Ratio 29 H Glucose 181 H Calculated Osmolality 318 H Calcium 8.8 Corrected Calcium 9.4 Phosphorus 3.9 Magnesium 2.7 H Total Bilirubin 0.4 AST 89 H ALT 20 Alkaline Phosphatase 238 H D B-Natriuretic Peptide 672 H* Total Protein 6.1 Albumin 3.3 L Globulin 2.8 Albumin/Globulin Ratio 1.2 TSH 1.82 Random Vancomycin 16.2 ABG Interpretation ABG results: 04/18/25 04/18/25 04/18/25 04:40 06:27 10:30 ABG pH 7.28 L 7.33 L 7.36 ABG pCO2 72 H* 67 H 61 H ABG pO2 132 H 60 L D 60 L ABG HCO3 34 H 35 H 34 H ABG O2 Saturation 100 H 93 93 ABG Base Excess 6 H 7 H 8 H 04/19/25 05/10/25 08:53 07:40 ABG pH 7.47 H D 7.52 H ABG pCO2 45 D 40 ABG pO2 66 L 60 L ABG HCO3 33 H 32 H ABG O2 Saturation 96 94 ABG Base Excess 8 H 8 H Assessment & Plan A&P Narrative 64-year-old male, 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 Patient was upgraded to ICU for a third time with in acute respiratory respiratory failure secondary to mucous plug and shock, likely cardiogenic shock secondary to complete heart block requiring pressors. # Bradycardia and questionable complete heart block #A-fib with RVR, hemodynamically unstable-cardioverted #Paroxysmal atrial fibrillation Cardiology was consulted 05/09/2025 for significant bradycardia requiring external temporary transcutaneous pacing. Patient was also hypoxic and was transferred to the ICU. Plan was to place a temporary transvenous pacemaker if the patient continues to be bradycardic as he was 100% dependent on the transcutaneous pacing. Bronchoscopy was performed which showed small mucous plug which was removed and patient rhythm was back to his atrial fibrillation with RVR. Patient was on dopamine at that point of time. Patient blood pressure was on the lower side and was unstable and required cardioversion x 1. Dopamine drip was stopped along with Levophed and recommended patient to be placed on phenylephrine drip given the history of the atrial fibrillation with RVR. Continue amiodarone for now for rate control no beta-blockers or calcium channel blockers secondary to the hypotension. EF is preserved on the last echocardiogram. Patient vital signs stabilized after the phenylephrine drip and rate is now controlled between 70 to 90 bpm. Patient has multiple comorbidities as mentioned above and his prolonged hospitalization. He has a significantly large decubitus ulcers which is also contributing to the sepsis and apparently worsening since his admission. Patient is presently ventilator dependent and has a tracheostomy in place along with a jejunostomy. Discussed with the family about his present diagnosis, treatment plan and also discussed with them the goals of care. Discussed with the family regarding the prolonged hospitalization, his multiple comorbidities and the unhealing decubitus ulcer with minimal improvement and family is also going to speak about the goals of care with the primary team. Shock possible multifactorial in the setting of hypoxic respiratory failure along with the bradycardia and underlying sepsis 05/12/2025: Telemetry reviewed and patient still continues to be in atrial fibrillation but rate controlled. No new evidence of any bradycardia or heart block or any RVR episodes. Phenylephrine drip has been discontinued and patient blood pressure continues to be stable. Continue oral amiodarone for rate control. Explained to the patient that if he develops tachybradycardia syndrome then he will need a permanent pacemaker but given his shoe sacral ulcer with recurrent infections he would be at high risk of pacemaker infections which will lead to pacemaker removal and both procedures which will involve complications. Explained this in detail with the patient. No need of any pacemaker at the present point of time and continue to monitor telemetry No dialysis performed by nephrology as Urine output > 1 L but BUN 102 and cr 3.5. 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 Nephrology also did discuss goals of care with the patient. Patient at this point of time he is considering all options, but at present time wants to continue full treatment. CHADVASC 3 Plan -Phynelephrine drip 0.1 mg/kg/min given the patient's history of atrial fibrillation. -given recent cardioversion, recommend heparin drip and then Xarelto - Previously Xarelto was being held in the setting of large decubitus ulcer- anticoagulation has been held. -continue to wean off as blood pressure permits -Amiodarone, holding off #Congestive heart failure #CHF HFpEF 65% #Diastolic dysfunction, grade 3 #Pulmonary hypertension #BASIA/OHS #Moderate to severe a AOV calcification with no stenosis #Moderat to Large Pleural Effusion Patient has a past medical history of right heart faillure, Diastolic dysfucntion, and HFpEF 65% likely in the setting of cardiomypoathy seconadary to morbid obesity form BASIA/OHS. Given Cxr noted with prominent vascular congestion, consider repeat BNP, although hemodynamically unstable given pressors but may consider. No pheriphearl edema noted. Patient's previous Dry weight: 197.9 & Dry BNP 135. Previous [place] 03/19/2025: RAP 8, PAP 27, PCWP 7. BNP____;current cathy/ght 197 Troponin 05/09/2025: <0.02 Cxr (05/09/2025): Mild Heart Failure, Prominent vascular congestion and Moderate to large right pleural effusion Echo (04/29/2025): Normal LV size and function. Estimated EF of 65%. Grade III Diastolic Dysfunction.Right ventricle is dilated with mild RV dysfunction RVSP 47mmHg. RAP 15mmHg.Severe biatrial dilation.Moderate to Severe AOV calcification with no stenosis <ild tricuspid regurgitation. No pericardial effusion. Plan -Bumex 2 mg IVP BID-currently on hold -Consider repeat TSH & BNP AM -Consider fluid resprictions given pleural effusion, prominent vascular congestion, and repeat BNP -Consider Fluid Restrictions -Consider repeat echo given complete heart block -K >4 and Mg >2 #Acute on Chronic Respiratory Failure secondary to mucos plug #Healthcare-Associated Pneumonia #Leukocytosis Patient noted to have acute on chronic respiratory failure, required bronchoscopy w/ mucos plugs removed. Previous sputum Pseudomnas (04/03/2025) Plan -Zosyn (05/09/2025) -Blood culture obtained -Bronchial washing MRSA negative #Large Sacrale Decubitus Ulcer s/p excisional debridement (05/02/2025) Recent debridement of large decubitus ulcer on 05/02/2025 likely secondary to morbid obestiy and lack of mobility. plan -Continue abnitbiotics in the setting of leukocytosis & Healthcare associated pneumonia #CKD stage III Patient previously noted to have an KENIA, likely intrinisc per chart review previously had been noted to have worsening BUN now 105 and Cr 2.9. Plan -Continue to monitor BUN Cr -Consider fluid restrictions in setting of CHF history. #Jejunostomy #history of abdominal abscess s/p percutaneous drainage Plan -Tube feedings currently held #Diabetes Mellitus Type 2 non insulin depedent Patient has past medical history of diabetes mellitus type 2 non insulin depent but since admsision, in february 2025, patient has been started on insulin. Patinents fasting glucose has been less than 180. A1c (03/05/2025): 7.6% #Normocytic Anemia History of normocytic anemia likely secondayr to anemia of chronic disease vs blood loss secondary to large decubitus ulcer. 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 DVT ppx: SCDs GI ppx: Protonix 40mg qD Mechanical ventilattion: Yes, Mode: ACVC VT 500, RR 20, PEEP 8, FiO2 75%no Sedation: Yes, Fentanyl (CPOT 0-1)-currenlty not given IV lines: 2 pIV Central line: No Arterial line: No Fuller: No Code status: FULL CODE There is a high probability of sudden, clinically significant or life threatening deterioration in the patient condition which required the highest level of physician preparedness to intervene urgently. I have personally spent 65 minutes of critical care time, exclusive of time spent on any procedures, in evaluation and management of this critically ill patient. Management of rest of the medical conditions as per primary team and other consultants. Thank you for the consult and allowing me to participate in the care of the patient. Cardiology will continue to follow. Kobe Barahona M.D. Interventional Cardiology Time Spent With Patient Time: Total time spent is greater than 50% in coordination of care (as documented) at patient's floor/unit and/or counseling patient:
[2025-05-12] MEDS: DOXYCYCLINE INJ 100 MG in SODIUM CHLORIDE 0.9% (POP) 100 ML IV (21:02)
[2025-05-13] VITALS (19 sets, daily range): BP systolic 91–139; BP diastolic 62–90; PULSE 70–89; RESP 14–28; TEMP 36.3–36.8; O2SAT 94–100
[2025-05-13] MEDS: BUMETANIDE INJ 0.25 MG/ML VIAL 4 ML 1 MG IVP ×2 (05:02→17:31)
[2025-05-13] MEDS: GABAPENTIN 100 MG CAPSULE PO ×3 (05:03→21:33)
[2025-05-13] MEDS: PIPER/TAZO INJ 4.5 GM in SODIUM CHLORIDE 0.9% (POP) 100 ML IV ×3 (05:03→21:34)
[2025-05-13] MEDS: INSULIN LISPRO (AdmeLOG) 1 UNIT/0.01 ML UNIT SC ×3 (05:30→17:35)
[2025-05-13 05:37] LABS: Basophils # (Auto) 0.0 Thou/mm3 (0.0-0.2); Basophils % (Auto) 0 % (0-2.5); Eosinophils # (Auto) 0.5 Thou/mm3 (0.0-0.5); Eosinophils % (Auto) 2 % (0-10); Immature Granulocytes Auto 0.32 Thou/mm3 (0.00-0.00); Lymphocytes # (Auto) 4.3 Thou/mm3 (1.0-4.8); Lymphocytes % (Auto) 18 % (10-50); Mean Corpuscular HGB Conc 31.3 g/dl (31.0-37.0); Mean Corpuscular Hemoglobin 28.8 pg (25.0-35.0); Mean Corpuscular Volume 92 fL (80-100); Monocytes # (Auto) 1.9 Thou/mm3 (0.0-0.8); Monocytes % (Auto) 8 % (0-12); Neutrophils # (Auto) 17.0 Thou/mm3 (1.8-7.7); Neutrophils % (Auto) 71 % (37-80); Nucleated Red Blood Cell # 0.00 Thou/mm3 (0.00-0.00); Nucleated Red Blood Cell % 0 /100 WBC (0); Platelet Count 425 Thou/mm3 (140-440); RDW Standard Deviation 58.3 fL (35.1-43.9); Red Blood Count 1.98 Miln/mm3 (4.50-5.90); White Blood Count 24.1 Thou/mm3 (3.8-10.6)
[2025-05-13 05:44] LABS: Hemoglobin 5.7 g/dL (13.5-16.0)
[2025-05-13 05:45] LABS: Hematocrit 18.2 % (41.0-53.0)
[2025-05-13] MEDS: ACETYLCYSTEINE RT SOL 10% 4 ML NEBU 3 ML INH ×3 (05:54→22:10)
[2025-05-13] MEDS: ALBUTEROL/IPRATROPIUM (Duoneb) RT SOL 3 ML NEBU INH ×3 (05:54→22:10)
[2025-05-13 06:00] LABS: Path Review Blood Smear Sent to Pathologist
[2025-05-13 06:01] LABS: Alanine Aminotransferase 21 U/L (10-49); Albumin, Serum 3.3 gm/dL (3.4-4.8); Albumin/Globulin Ratio 1.1 (1.2-2.2); Alkaline Phosphatase 258 U/L (46-116); Anion Gap 10 (7-16); Aspartate Amino Transferase 66 U/L (0-34); BUN/Creatinine Ratio 29 Ratio (12-20); Bilirubin,Total 0.3 mg/dL (0.3-1.2); Calcium 9.0 mg/dL (8.3-10.6); Calcium (Corrected) 9.6 mg/dL (8.5-10.1); Carbon Dioxide 27.9 mMol/L (20.0-31.0); Chloride 102 mMol/L (98-107); Creatinine (Component) 3.7 mg/dL (0.6-1.3); Estimated Creatinine Clearance 32.8 mL/min (>60); Globulin 3.0 gm/dL (2.3-3.5); Glucose 190 mg/dL (74-106); Magnesium 2.8 mg/dL (1.6-2.6); Osmolality,Calculated 318 (275-295); Phosphorous 4.2 mg/dL (2.4-5.1); Potassium 4.7 mMol/L (3.4-5.1); Sodium 140 mMol/L (136-145); Total Protein 6.3 gm/dL (5.7-8.2); Vancomycin,Random 13.6 mcg/mL; eGFR 17 See Note
[2025-05-13 06:02] LABS: Blood Urea Nitrogen 107 mg/dL (9-23)
[2025-05-13] MEDS: ASCORBIC ACID 250 MG TABLET 500 MG GT ×2 (08:00→21:33)
[2025-05-13] MEDS: AMIODARONE HCL 200 MG TABLET GT (08:00)
[2025-05-13] MEDS: LANSOPRAZOLE 30 MG TAB.RAP.DR GT (08:02)
[2025-05-13] MEDS: ZINC SULFATE 220 MG CAPSULE GT (08:02)
[2025-05-13] MEDS: DOXYCYCLINE INJ 100 MG in SODIUM CHLORIDE 0.9% (POP) 100 ML IV ×2 (08:02→21:33)
[2025-05-13] MEDS: INSULIN GLARGINE (Lantus) 5 UNIT/0.05 ML (PER 5 UNITS) 38 UNIT SC (08:03)
[2025-05-13] MEDS: SOD HYPOCHLORITE 1/4 STR 473 ML BTL IRRIG ×2 (08:04→21:35)
[2025-05-13 09:42] LABS: Hematocrit 26.3 % (41.0-53.0)
[2025-05-13 09:47] LABS: Hemoglobin 8.1 g/dL (13.5-16.0)
--- NOTE | 2025-05-13 15:38 | ESPR_ITS ---
Documentation for date of: 05/13/25 Subjective Subjective Interval history: No acute events overnight.?Patient seen and examined at bedside this AM.?Patient is mechanically vented on trach, but he is fully awake and interactive, writes on whiteboard well for communication. Labs and vitals were reviewed.?This morning, concern for Hgb 5.7 resulted from lab. Stat repeat H&H was drawn and the repeat was 8.1. Patient is Confucianist and cannot take blood products, continues to refuse regardless of need in life threatening circumstance. Due to low Hgb Nephrology had additionally determined patient cannot receive dialysis should kidney function decline again. Creatinine is increasing - continue bumex for fluid overload, patient still makes urine. Goals of care discussed with patient on multiple days and patient continues to want to be Full Code, has decision making capacity. Continue IV Zosyn for possible hospital-acquired pneumonia. No further complaints at this time. Goal has been for patient to remain stable for greater than 48 hours, then aim for discharge to subacute facility. Review of systems otherwise negative except what is mentioned above. Exam Vital Signs Temp Pulse Resp BP Pulse Ox O2 Del Method O2 Flow Rate 97.5 F 79 25 H 108/64 99 Mechanical Ventilation 10 05/13/25 04:01 05/13/25 12:01 05/13/25 12:01 05/13/25 12:01 05/13/25 12:01 05/12/25 17:32 05/11/25 14:41 FiO2 50 05/13/25 12:00 Narrative Exam Constitutional: Alert, oriented x 3 and mild distress. Nods and expresses self to questions, writes well on white board for response. Elderly male, morbidly obese, MMM. HEENT: Vision grossly intact. Patent nares. Trachea midline. Tracheostomy tube in situ, exit site clean. Respiratory: Chest normal on inspection and decreased air entry in all lung sims, transmitted sounds and congestion on anterior chest wall, middle and upper lobes. Cardiovascular: S1 and S2 audible, RRR. No murmurs carotid bruit. No gross JVD. Abdominal: Soft, obese and non tender to palpation in all quadrants. BS +. Jejunostomy tube in situ, exit site clean Genitourinary: No bladder tenderness, no flank pain. Normal to palpation Musculoskeletal: Extremities tone within normal limits. 2+ bilateral lower extremity edema. Neurological: CN II - XII grossly intact. Extremity motor and sensation grossly intact. Skin: Warm, dry and intact. 12 x 15 large sacral decubitus ulcer, necrotic tissue noted, easily friable. Sanguinous oozing. Packed with dressings. Psychiatric: Patient has good affect, is cooperative Objective Labs 05/13/25 08:58 05/13/25 05:29 Labs: Laboratory Results - last 24 hr 05/13/25 05/13/25 05:29 08:58 WBC 24.1 H RBC 1.98 L* Hgb 5.7 L* 8.1 L D Hct 18.2 L* 26.3 L MCV 92 MCH 28.8 MCHC 31.3 RDW Std Deviation 58.3 H Plt Count 425 D Neut % (Auto) 71 Lymph % (Auto) 18 Jackson % (Auto) 8 Eos % (Auto) 2 Baso % (Auto) 0 Neut # (Auto) 17.0 H Lymph # (Auto) 4.3 Jackson # (Auto) 1.9 H Eos # (Auto) 0.5 Baso # (Auto) 0.0 Immature Gran # (Auto) 0.32 H Absolute Nucleated RBC 0.00 Immature Gran % 1 H Nucleated RBC % 0 Smear Path Review Sent to Pathologist Sodium 140 Potassium 4.7 Chloride 102 Carbon Dioxide 27.9 Anion Gap 10 BUN 107 H* Creatinine 3.7 H Estim Creat Clear Calc 32.8 L eGFR 17 L BUN/Creatinine Ratio 29 H Glucose 190 H Calculated Osmolality 318 H Calcium 9.0 Corrected Calcium 9.6 Phosphorus 4.2 Magnesium 2.8 H Total Bilirubin 0.3 AST 66 H ALT 21 Alkaline Phosphatase 258 H D Total Protein 6.3 Albumin 3.3 L Globulin 3.0 Albumin/Globulin Ratio 1.1 L Random Vancomycin 13.6 ABG Interpretation ABG results: 04/18/25 04/18/25 04/18/25 04:40 06:27 10:30 ABG pH 7.28 L 7.33 L 7.36 ABG pCO2 72 H* 67 H 61 H ABG pO2 132 H 60 L D 60 L ABG HCO3 34 H 35 H 34 H ABG O2 Saturation 100 H 93 93 ABG Base Excess 6 H 7 H 8 H 04/19/25 05/10/25 08:53 07:40 ABG pH 7.47 H D 7.52 H ABG pCO2 45 D 40 ABG pO2 66 L 60 L ABG HCO3 33 H 32 H ABG O2 Saturation 96 94 ABG Base Excess 8 H 8 H Quality Measures Quality Measures VTE therapy Advance care planning discussed with:: patient Assessment & Plan Assessment Current Active Medications: Generic Name Dose Route Start Last Admin Trade Name Freq PRN Reason Stop Dose Admin Acetaminophen 650 mg 05/01/25 08:47 05/06/25 07:14 Acetaminophen 325 Mg Tablet PO 05/22/25 20:42 650 mg Q6HR PRN Administration pain 1-3 OR Fever >100.4 Acetylcysteine 3 ml 05/10/25 15:00 05/13/25 05:54 Acetylcysteine Rt Gloria 10% 4 Ml Nebu INH 06/09/25 14:59 3 ml Q8HRRT KOURTNEY Administration Albuterol/Ipratropium 3 ml 05/10/25 15:00 05/13/25 05:54 Albuterol/Ipratropium (Duoneb) Rt Gloria 3 Ml Nebu INH 06/09/25 14:59 3 ml Q8HRRT KOURTNEY Administration Amiodarone HCl 200 mg 05/12/25 13:45 05/13/25 08:00 Amiodarone Hcl 200 Mg Tablet GT 06/11/25 13:44 200 mg QDAY KOURTNEY Administration Artificial Tears 0 drop 04/14/25 19:33 05/07/25 20:31 Artificial Tears 225 Drop/15 Ml Btl BOTH EYES 05/14/25 19:32 1 drop PRN PRN Administration TO KEEP EYES MOIST Ascorbic Acid 500 mg 04/17/25 21:00 05/13/25 08:00 Ascorbic Acid 250 Mg Tablet GT 05/17/25 20:59 500 mg BID KOURTNEY Administration Bumetanide 1 mg 05/12/25 10:00 05/13/25 05:02 Bumetanide Inj 0.25 Mg/Ml Vial 4 Ml IVP 06/11/25 09:59 1 mg BIDD KOURTNEY Administration Dextrose 25 ml 05/12/25 13:47 Dextrose 50%-Water Inj 50 Ml Syringe IV 06/11/25 13:46 Q15MIN PRN BG 50-70 responsive npo pt Dextrose 50 ml 05/12/25 13:48 Dextrose 50%-Water Inj 50 Ml Syringe IV 06/11/25 13:47 Q15MIN PRN BG <50 OR BG <70 & pt unresponsive Gabapentin 100 mg 05/11/25 14:05 05/13/25 14:15 Gabapentin 100 Mg Capsule PO 06/10/25 14:04 100 mg TID KOURTNEY Administration Glucagon 1 mg 05/12/25 13:49 Glucagon Inj 1 Mg Vial IM 06/11/25 13:48 Q15MIN PRN BG <70, and no IV access Albumin Human 25 gm in 100 mls @ 100 mls/min 04/24/25 11:52 Albuminar-25 Ivpb IV PRN PRN DIALYSIS Piperacillin Sod/Tazobactam 100 mls @ 25 mls/hr 05/09/25 13:03 05/13/25 14:15 Sod 4.5 gm/ Sodium Chloride IV 05/16/25 13:02 25 mls/hr Q8HR KOURTNEY Administration Protocol Doxycycline Hyclate 100 mg/ 100 mls @ 100 mls/hr 05/12/25 21:00 05/13/25 08:02 Sodium Chloride IV 05/19/25 20:59 100 mls/hr BID KOURTNEY Administration Insulin Glargine 38 unit 05/13/25 09:00 05/13/25 08:03 Insulin Glargine (Lantus) 5 Unit/0.05 Ml (Per 5 Units) SC 06/12/25 08:59 38 unit QDAY KOURTNEY Administration Insulin Human Lispro 0 unit 05/12/25 18:00 05/13/25 12:45 Insulin Lispro (Admelog) 1 Unit/0.01 Ml Unit SC 06/11/25 17:59 2 unit Q6HR KOURTNEY Administration Protocol Lansoprazole 30 mg 05/05/25 09:00 05/13/25 08:02 Lansoprazole 30 Mg Tab.Rap. GT 06/04/25 08:59 30 mg QDAY KOURTNEY Administration Pharmacy Consult 1 each 04/24/25 08:43 Pharmacy Renal Dose Adjustment 1 Ea XX 05/24/25 08:42 PRN PRN CONSULT Sennosides 2 tab 05/02/25 09:00 05/13/25 08:02 Senna Tablet GT 06/01/25 08:59 Not Given QDAY KOURTNEY Protocol Sodium Hypochlorite 473 ml 05/06/25 21:00 05/13/25 08:04 Sod Hypochlorite 1/4 Str 473 Ml Btl IRRIG 06/05/25 20:59 473 ml BID KOURTNEY Administration Zinc Sulfate 220 mg 04/18/25 09:00 05/13/25 08:02 Zinc Sulfate 220 Mg Capsule GT 05/18/25 08:59 220 mg QDAY KOURTNEY Administration Plan Assessment 64-year-old male with past medical history of DM2, hypertension, A-fib, and Jehova's witness was initially admitted to the ICU on 02/27/2025 for shock and acute on chronic hypoxic respiratory failure. Patient has been s/p tracheostomy. Patient was sent to [facility] 04/09 for laparoscopic J-tube placement as patient required bariatric surgery service, received back to [facility] on 04/13. On 05/09, patient was upgraded to ICU due to bradycardia requiring transcutaneous pacing. He was briefly placed on dopamine drip, and went into unstable fib with RvR requiring cardioversion x1. Was then placed on phenylephrine drip. Patient received bronchoscopy which showed mucous plugging, at this point antibiotics were re-started. He was subsequently downgraded to telemetry since 05/11. #Acute on Chronic Respiratory Failure secondary to mucous plug #Healthcare-Associated Pneumonia #Leukocytosis Patient noted to have acute on chronic respiratory failure, required bronchoscopy w/ mucous plugs removed. Previous sputum Pseudomnas (04/03/2025) 05/09/2025 Bronchial washing culture grew pseudomonas, sensitive to Zosyn Plan: -Continue Zosyn (05/09/2025-, vancomycin was discontinued (05/09/2025-05/12/25) started on doxycycline (05/12/25- -Blow-by during the day, mechanical ventilation at night as needed at baseline, currently on mechanical ventilation -DuoNeb, Mucomyst and chest physiotherapy scheduled #Paroxysmal atrial fibrillation Per cardiology there is a concern of heart block, tachybradycardia syndrome as well. [id number] score of 3 points indicating 3.2% risk of stroke per year HAS-BLED: 3. High risk of major bleeding Discussed with vp hr diversity?will start on amiodarone previous dose, 200 mg daily. Per cardiology patient is a poor candidate for pacemaker placement, patient was informed at bedside by cardiology team. He verbalized understanding. Plan: - Resumed p.o. amiodarone. - Cardiology consulted, appreciate recommendations - Patient will need anticoagulation, however has low hemoglobin, bleeding wound will defer anticoagulation for now. #Congestive heart failure, HFpEF 65% #Diastolic dysfunction, grade 3 #Pulmonary hypertension #Right heart failure #BASIA/OHS #Moderate to severe a AOV calcification with no stenosis Patient has a past medical history of right heart faillure, Diastolic dysfucntion, and HFpEF 65% likely in the setting of cardiomypoathy seconadary to morbid obesity form BASIA/OHS. Given Cxr noted with prominent vascular congestion, consider repeat BNP, although hemodynamically unstable given pressors but may consider. No pheriphearl edema noted. Cxr (05/09/2025): Mild Heart Failure, Prominent vascular congestion and Moderate to large right pleural effusion Echo (04/29/2025): Normal LV size and function. Estimated EF of 65%. Grade III Diastolic Dysfunction.Right ventricle is dilated with mild RV dysfunction RVSP 47mmHg. RAP 15mmHg.Severe biatrial dilation.Moderate to Severe AOV calcification with no stenosis <ild tricuspid regurgitation. No pericardial effusion. Plan -Continue Bumex 1 mg IVP twice daily, will assess response and uptitrate as needed in the morning -Patient 1500 cc/day fluid restriction, daily weights, tube feeds resumed -K >4 and Mg >2 #Acute kidney injury-suspicion of ischemic ATN #Fluid overload #Acute on chronic hypoxic respiratory failure, improving. Patient looks clinically hypervolemic at this time 04/20 ? Attempt was made to place Fuller catheter however unable to pass catheter due to significant resistance and attempt was terminated. Discussed with nursing about possibility of weighing briefs daily. Patient had temporary hemodialysis catheter placed 04/24, receiving dialysis had 1 L removed on 04/24, 2 L on 04/25, 2.14 on 04/26, 2.1 L on 04/29; temporary dialysis catheter discontinued on 05/06 Patient being followed by nephrology, nephrology agrees with diuresis for now, will need close monitoring, poor candidate for dialysis due to body habitus and also has chronic anemia with wound bleeding from sacral region-manager creative did discuss with patient in detail, he verbalizes understanding. Plan: -Started on Bumex 1 mg twice daily, will uptitrate as needed -Will switch vancomycin to doxycycline considering vancomycin's nephrotoxicity, will follow cultures. -Monitor urine output -Avoid nephrotoxic agents -Renally dose medication #Decubitus ulcer status post excisional debridement of sacral decubitus ulcer Recent debridement of large decubitus ulcer on 05/02/2025 likely secondary to morbid obestiy and lack of mobility. 04/29: excisional debridement of sacral decubitus ulcer, washout and placement of wound VAC. 05/02: Patient had significant bleeding overnight, wound VAC leaked. Hemoglobin stable this morning, patient's bleeding from wound overnight was controlled with suture ligation. Wound was assessed by general surgeon, patient was transitioned back to red dry dressings daily. plan -General Surgery consulted, wound care per general surgery recommendations #Jejunostomy tube #Abdominal abscess - resolved Patient report said that there was an intra-abdominal abscess that have could have been from a perforated ulcer in the past See also note reviewed, mentions that patient likely had a marginal ulcer, but also was not seen on EGD without, currently patient has no abdominal tenderness and is totally asymptomatic. No current drain at this time Patient is status post laparoscopic J-tube placement and is currently on feeds Patient will continue to have this tube and will likely go to a long-term care facility with this until patient can swallow safely Plan: ? Monitor vitals closely #Normocytic normochromic anemia Multifactorial. Patient's baseline hemoglobin throughout the hospitalization has been in the range 9?11, patient did have some bleeding from wound VAC site on 05/02 which was controlled by suture ligation by general surgery. Had recurrent bleeding and eventually heparin drip was held. Patient has been receiving erythropoietin and ferumoxytol to improve underlying anemia - Patient is a Yarsani, denies any blood transfusion/blood products - Will repeat CBC as needed #Right internal jugular venous thrombosis #Right arm swelling Continuing free water flushes, patient has gone multiple days of heparin drip since 04/01 Right upper extremity ultrasound May 04-shows right IJ thrombus Plan: ? Heparin drip is being held due to recurrent bleeding from sacral ulcer #Morbid obesity #DM2 A1C 7.6 on 03/05/2025 Patient has a BMI of 79.5->68.7 Attempted to prescribe tirzepatide to outside pharmacy to bring inpatient however no one is able to pick it up for the patient. Plan: - ISS scale 2 - Hypoglycemia protocol ordered - 38 units of Lantus. #Health Maintenance Disposition: Telemetry DVT prophylaxis: None, patient is Yarsani and has a bleeding sacral wound GI prophylaxis: Protonix Diet: 2Cal Tube Feeds with 30 cc/hour water flush CODE STATUS: Full code Patient plan of care was discussed with the attending physician, Dr. Turcios. Evi Betts, PGY-2 Attending Provider Attestation/Addendum I have discussed and was present for the essential components of the history, physical examination, diagnosis, and treatment plan with the resident. I agree with the patient's care as documented by the resident and amended herein by me. Arnol Turcios, DO. Patient seen and evaluated the a.m., vital signs stable, patient afebrile, on blow-by this morning. I/O [id number]. Significant labs include a slight uptrend in WBC of 24, hemoglobin 8.1, initial read of 5.4 likely lab error, BUN slight uptrend 107 and creatinine of trend 3.7. Repeat blood cultures and echocardiogram repeat pending. Will continue Zosyn and doxycycline for possible hospital-acquired pneumonia, continue to diurese, amiodarone on board, appreciate specialist recommendations. Will continue to monitor closely, patient can likely be transferred to subacute once stable for approximately 48 hours. Patient emphasized to his yesterday he wishes to remain full code. Although this document has been carefully reviewed, there may still be some phonetic and other typographical errors. These errors are purely grammatical due to imperfections in the software program and should not be construed in any way to compromise the substance of the patient's medical care during this visit.
--- NOTE | 2025-05-13 23:45 | PD.IMPROG ---
Documentation for date of: 05/13/25 Subjective Subjective Interval history: Patient seen and examined at bedside. No new cardiac complaints at the present point of time Telemetry reviewed and patient still continues to be in atrial fibrillation but rate controlled. No new evidence of any bradycardia or heart block or any RVR episodes. Phenylephrine drip has been discontinued and patient blood pressure continues to be stable. Continue oral amiodarone for rate control. Explained to the patient that if he develops tachybradycardia syndrome then he will need a permanent pacemaker but given his shoe sacral ulcer with recurrent infections he would be at high risk of pacemaker infections which will lead to pacemaker removal and both procedures which will involve complications. Explained this in detail with the patient. No need of any pacemaker at the present point of time and continue to monitor telemetry No dialysis performed by nephrology as Urine output > 1 L but BUN 102 and cr 3.5. patient's hemoglobin continues to be low at 7.0 and patient is a Denominational. Nephrology also did discuss goals of care with the patient. Patient at this point of time he is considering all options, but at present time wants to continue full treatment. Exam Vital Signs Temp Pulse Resp BP Pulse Ox O2 Del Method O2 Flow Rate 97.6 F 85 19 100/71 100 Mechanical Ventilation 10 05/13/25 16:03 05/13/25 17:31 05/13/25 16:03 05/13/25 17:31 05/13/25 16:03 05/12/25 17:32 05/11/25 14:41 FiO2 50 05/13/25 15:44 Narrative Exam General Appearance: Alert & Oriented X1, well-nourished male who is lying in bed in no acute distress. Extensive decubitus ulcers. HEENT: Skull symmetrical and atraumatic. Conjunctivae pale pink and moist. Pupils equal, round, reactive to light and accommodation (PERRL). Tracheostomy noted Cardio: Normal Rate and Rhythm with S1 and S2 heart sounds. No murmurs or extra heart sounds auscultated. No bruits on carotid auscultation. No peripheral edema or cyanosis. Lungs: Symmetric expansion. Reduced vesicular breath sounds, secondary to body habitus Abdomen: Non-tender, Non-distended, Normal Reactive Bowel Sounds Neuro: Yes Alert, NO cooperative, Yes oriented to person, No place, and NO time. Speech Not clear. CN grossly intact. Skin: Large sacral ulcer present but not examined and reviewed pictures from wound care. Objective Labs 05/13/25 08:58 05/13/25 05:29 Labs: Laboratory Results - last 24 hr 05/13/25 05/13/25 05:29 08:58 WBC 24.1 H RBC 1.98 L* Hgb 5.7 L* 8.1 L D Hct 18.2 L* 26.3 L MCV 92 MCH 28.8 MCHC 31.3 RDW Std Deviation 58.3 H Plt Count 425 D Neut % (Auto) 71 Lymph % (Auto) 18 Candler % (Auto) 8 Eos % (Auto) 2 Baso % (Auto) 0 Neut # (Auto) 17.0 H Lymph # (Auto) 4.3 Candler # (Auto) 1.9 H Eos # (Auto) 0.5 Baso # (Auto) 0.0 Immature Gran # (Auto) 0.32 H Absolute Nucleated RBC 0.00 Immature Gran % 1 H Nucleated RBC % 0 Smear Path Review Sent to Pathologist Sodium 140 Potassium 4.7 Chloride 102 Carbon Dioxide 27.9 Anion Gap 10 BUN 107 H* Creatinine 3.7 H Estim Creat Clear Calc 32.8 L eGFR 17 L BUN/Creatinine Ratio 29 H Glucose 190 H Calculated Osmolality 318 H Calcium 9.0 Corrected Calcium 9.6 Phosphorus 4.2 Magnesium 2.8 H Total Bilirubin 0.3 AST 66 H ALT 21 Alkaline Phosphatase 258 H D Total Protein 6.3 Albumin 3.3 L Globulin 3.0 Albumin/Globulin Ratio 1.1 L Random Vancomycin 13.6 ABG Interpretation ABG results: 04/18/25 04/18/25 04/18/25 04:40 06:27 10:30 ABG pH 7.28 L 7.33 L 7.36 ABG pCO2 72 H* 67 H 61 H ABG pO2 132 H 60 L D 60 L ABG HCO3 34 H 35 H 34 H ABG O2 Saturation 100 H 93 93 ABG Base Excess 6 H 7 H 8 H 04/19/25 05/10/25 08:53 07:40 ABG pH 7.47 H D 7.52 H ABG pCO2 45 D 40 ABG pO2 66 L 60 L ABG HCO3 33 H 32 H ABG O2 Saturation 96 94 ABG Base Excess 8 H 8 H Assessment & Plan A&P Narrative 64-year-old male, Denominational with a past medical history of hypertension, diabetes mellitus type 2, history of atrial fibrillation, CHF HFpEF 65%, grade 3 diastolic dysfunction, right heart failure, RSVP 47, moderate to severe ALB calsifications with no stenosis, status post tracheostomy, s/p PEG Tube at [facility], bariatric team, history of dyspahagia, extensive decubitus ulcers, CKD, history of anemia, history of Diego-en- Y gastric bypass, BASIA/OHS, and morbid obesity. Patient was upgraded to ICU for a third time with in acute respiratory respiratory failure secondary to mucous plug and shock, likely cardiogenic shock secondary to complete heart block requiring pressors. # Bradycardia and questionable complete heart block #A-fib with RVR, hemodynamically unstable-cardioverted #Paroxysmal atrial fibrillation Cardiology was consulted 05/09/2025 for significant bradycardia requiring external temporary transcutaneous pacing. Patient was also hypoxic and was transferred to the ICU. Plan was to place a temporary transvenous pacemaker if the patient continues to be bradycardic as he was 100% dependent on the transcutaneous pacing. Bronchoscopy was performed which showed small mucous plug which was removed and patient rhythm was back to his atrial fibrillation with RVR. Patient was on dopamine at that point of time. Patient blood pressure was on the lower side and was unstable and required cardioversion x 1. Dopamine drip was stopped along with Levophed and recommended patient to be placed on phenylephrine drip given the history of the atrial fibrillation with RVR. Continue amiodarone for now for rate control no beta-blockers or calcium channel blockers secondary to the hypotension. EF is preserved on the last echocardiogram. Patient vital signs stabilized after the phenylephrine drip and rate is now controlled between 70 to 90 bpm. Patient has multiple comorbidities as mentioned above and his prolonged hospitalization. He has a significantly large decubitus ulcers which is also contributing to the sepsis and apparently worsening since his admission. Patient is presently ventilator dependent and has a tracheostomy in place along with a jejunostomy. Discussed with the family about his present diagnosis, treatment plan and also discussed with them the goals of care. Discussed with the family regarding the prolonged hospitalization, his multiple comorbidities and the unhealing decubitus ulcer with minimal improvement and family is also going to speak about the goals of care with the primary team. Shock possible multifactorial in the setting of hypoxic respiratory failure along with the bradycardia and underlying sepsis 05/13/2025: Telemetry reviewed and patient still continues to be in atrial fibrillation but rate controlled. No new evidence of any bradycardia or heart block or any RVR episodes. Phenylephrine drip has been discontinued and patient blood pressure continues to be stable. Continue oral amiodarone for rate control. Explained to the patient that if he develops tachybradycardia syndrome then he will need a permanent pacemaker but given his shoe sacral ulcer with recurrent infections he would be at high risk of pacemaker infections which will lead to pacemaker removal and both procedures which will involve complications. Explained this in detail with the patient. No need of any pacemaker at the present point of time and continue to monitor telemetry No dialysis performed by nephrology as Urine output > 1 L but BUN 102 and cr 3.5. patient's hemoglobin continues to be low at 7.0 and patient is a Denominational. Nephrology also did discuss goals of care with the patient. Patient at this point of time he is considering all options, but at present time wants to continue full treatment. CHADVASC 3 Plan -Phynelephrine drip 0.1 mg/kg/min given the patient's history of atrial fibrillation. -given recent cardioversion, recommend heparin drip and then Xarelto - Previously Xarelto was being held in the setting of large decubitus ulcer-anticoagulation has been held. -continue to wean off as blood pressure permits -Amiodarone, holding off #Congestive heart failure #CHF HFpEF 65% #Diastolic dysfunction, grade 3 #Pulmonary hypertension #BASIA/OHS #Moderate to severe a AOV calcification with no stenosis #Moderat to Large Pleural Effusion Patient has a past medical history of right heart faillure, Diastolic dysfucntion, and HFpEF 65% likely in the setting of cardiomypoathy seconadary to morbid obesity form BASIA/OHS. Given Cxr noted with prominent vascular congestion, consider repeat BNP, although hemodynamically unstable given pressors but may consider. No pheriphearl edema noted. Patient's previous Dry weight: 197.9 & Dry BNP 135. Previous Bentley Mary 03/19/2025: RAP 8, PAP 27, PCWP 7. BNP____;current cathy/ght 197 Troponin 05/09/2025: <0.02 Cxr (05/09/2025): Mild Heart Failure, Prominent vascular congestion and Moderate to large right pleural effusion Echo (04/29/2025): Normal LV size and function. Estimated EF of 65%. Grade III Diastolic Dysfunction.Right ventricle is dilated with mild RV dysfunction RVSP 47mmHg. RAP 15mmHg.Severe biatrial dilation.Moderate to Severe AOV calcification with no stenosis <ild tricuspid regurgitation. No pericardial effusion. Plan -Bumex 2 mg IVP BID-currently on hold -Consider repeat TSH & BNP AM -Consider fluid resprictions given pleural effusion, prominent vascular congestion, and repeat BNP -Consider Fluid Restrictions -Consider repeat echo given complete heart block -K >4 and Mg >2 #Acute on Chronic Respiratory Failure secondary to mucos plug #Healthcare-Associated Pneumonia #Leukocytosis Patient noted to have acute on chronic respiratory failure, required bronchoscopy w/ mucos plugs removed. Previous sputum Pseudomnas (04/03/2025) Plan -Zosyn (05/09/2025) -Blood culture obtained -Bronchial washing MRSA negative #Large Sacrale Decubitus Ulcer s/p excisional debridement (05/02/2025) Recent debridement of large decubitus ulcer on 05/02/2025 likely secondary to morbid obestiy and lack of mobility. plan -Continue abnitbiotics in the setting of leukocytosis & Healthcare associated pneumonia #CKD stage III Patient previously noted to have an KENIA, likely intrinisc per chart review previously had been noted to have worsening BUN now 105 and Cr 2.9. Plan -Continue to monitor BUN Cr -Consider fluid restrictions in setting of CHF history. #Jejunostomy #history of abdominal abscess s/p percutaneous drainage Plan -Tube feedings currently held #Diabetes Mellitus Type 2 non insulin depedent Patient has past medical history of diabetes mellitus type 2 non insulin depent but since admsision, in february 2025, patient has been started on insulin. Patinents fasting glucose has been less than 180. A1c (03/05/2025): 7.6% #Normocytic Anemia History of normocytic anemia likely secondayr to anemia of chronic disease vs blood loss secondary to large decubitus ulcer. 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 DVT ppx: SCDs GI ppx: Protonix 40mg qD Mechanical ventilattion: Yes, Mode: ACVC VT 500, RR 20, PEEP 8, FiO2 75%no Sedation: Yes, Fentanyl (CPOT 0-1)-currenlty not given IV lines: 2 pIV Central line: No Arterial line: No Fuller: No Code status: FULL CODE There is a high probability of sudden, clinically significant or life threatening deterioration in the patient condition which required the highest level of physician preparedness to intervene urgently. I have personally spent 65 minutes of critical care time, exclusive of time spent on any procedures, in evaluation and management of this critically ill patient. Management of rest of the medical conditions as per primary team and other consultants. Thank you for the consult and allowing me to participate in the care of the patient. Cardiology will continue to follow. Kobe Barahona M.D. Interventional Cardiology Time Spent With Patient Time: Total time spent is greater than 50% in coordination of care (as documented) at patient's floor/unit and/or counseling patient:
[2025-05-14] VITALS (22 sets, daily range): BP systolic 67–120; BP diastolic 46–79; PULSE 64–100; RESP 17–29; TEMP 36.1–36.8; O2SAT 96–100
[2025-05-14] MEDS: INSULIN LISPRO (AdmeLOG) 1 UNIT/0.01 ML UNIT SC ×2 (00:14→12:45)
[2025-05-14] MEDS: BUMETANIDE INJ 0.25 MG/ML VIAL 4 ML 1 MG IVP ×2 (05:25→22:01)
[2025-05-14] MEDS: GABAPENTIN 100 MG CAPSULE PO ×3 (05:25→22:01)
[2025-05-14] MEDS: PIPER/TAZO INJ 4.5 GM in SODIUM CHLORIDE 0.9% (POP) 100 ML IV ×3 (05:26→22:00)
[2025-05-14] MEDS: ALBUTEROL/IPRATROPIUM (Duoneb) RT SOL 3 ML NEBU INH ×2 (06:15→23:10)
[2025-05-14] MEDS: ACETYLCYSTEINE RT SOL 10% 4 ML NEBU 3 ML INH ×2 (06:15→23:10)
[2025-05-14 06:24] LABS: Basophils # (Auto) 0.0 Thou/mm3 (0.0-0.2); Basophils % (Auto) 0 % (0-2.5); Eosinophils # (Auto) 0.4 Thou/mm3 (0.0-0.5); Eosinophils % (Auto) 2 % (0-10); Hematocrit 23.4 % (41.0-53.0); Immature Granulocytes Auto 0.30 Thou/mm3 (0.00-0.00); Lymphocytes # (Auto) 4.2 Thou/mm3 (1.0-4.8); Lymphocytes % (Auto) 19 % (10-50); Mean Corpuscular HGB Conc 30.8 g/dl (31.0-37.0); Mean Corpuscular Hemoglobin 28.6 pg (25.0-35.0); Mean Corpuscular Volume 93 fL (80-100); Monocytes # (Auto) 1.6 Thou/mm3 (0.0-0.8); Monocytes % (Auto) 7 % (0-12); Neutrophils # (Auto) 15.1 Thou/mm3 (1.8-7.7); Neutrophils % (Auto) 70 % (37-80); Nucleated Red Blood Cell # 0.02 Thou/mm3 (0.00-0.00); Nucleated Red Blood Cell % 0 /100 WBC (0); Platelet Count 492 Thou/mm3 (140-440); RDW Standard Deviation 59.6 fL (35.1-43.9); Red Blood Count 2.52 Miln/mm3 (4.50-5.90); White Blood Count 21.6 Thou/mm3 (3.8-10.6)
[2025-05-14 06:39] LABS: Alanine Aminotransferase 24 U/L (10-49); Albumin, Serum 3.3 gm/dL (3.4-4.8); Albumin/Globulin Ratio 1.1 (1.2-2.2); Alkaline Phosphatase 316 U/L (46-116); Anion Gap 11 (7-16); Aspartate Amino Transferase 54 U/L (0-34); BUN/Creatinine Ratio 25 Ratio (12-20); Bilirubin,Total 0.4 mg/dL (0.3-1.2); Blood Urea Nitrogen 94 mg/dL (9-23); Calcium 8.9 mg/dL (8.3-10.6); Calcium (Corrected) 9.5 mg/dL (8.5-10.1); Carbon Dioxide 25.9 mMol/L (20.0-31.0); Chloride 103 mMol/L (98-107); Creatinine (Component) 3.8 mg/dL (0.6-1.3); Estimated Creatinine Clearance 32.0 mL/min (>60); Globulin 3.0 gm/dL (2.3-3.5); Glucose 164 mg/dL (74-106); Magnesium 2.7 mg/dL (1.6-2.6); Osmolality,Calculated 312 (275-295); Phosphorous 4.5 mg/dL (2.4-5.1); Potassium 4.8 mMol/L (3.4-5.1); Sodium 140 mMol/L (136-145); Total Protein 6.3 gm/dL (5.7-8.2); eGFR 17 See Note
[2025-05-14 07:37] LABS: Hemoglobin 7.2 g/dL (13.5-16.0)
[2025-05-14] MEDS: CEFEPIME INJ 1 GM in SODIUM CHLORIDE 0.9% (Popper) 50 ML IV (09:34)
[2025-05-14] MEDS: ASCORBIC ACID 250 MG TABLET 500 MG GT ×2 (09:34→22:01)
[2025-05-14] MEDS: AMIODARONE HCL 200 MG TABLET GT (09:35)
[2025-05-14] MEDS: INSULIN GLARGINE (Lantus) 5 UNIT/0.05 ML (PER 5 UNITS) 38 UNIT SC (09:36)
[2025-05-14] MEDS: ZINC SULFATE 220 MG CAPSULE GT (09:36)
[2025-05-14] MEDS: SOD HYPOCHLORITE 1/4 STR 473 ML BTL IRRIG ×2 (09:42→22:03)
[2025-05-14] MEDS: LANSOPRAZOLE 30 MG TAB.RAP.DR GT (09:43)
--- NOTE | 2025-05-14 10:16 | ECHO_ITS ---
Transthoracic Echo Report Ht (in): 66 Wt (lb): 432 Exam Location: Echo Lab Status: Inpatient Tennis Director: Indications: Procedure Performed: BP: 100 / 67 HR: 83 Technical Quality: Technically Difficult Due to Body Habitus FINDINGS Left Ventricle The left ventricular cavity size is normal. Estimated EF 50%. Right Ventricle The right ventricular size is severely increased. The right ventricular ejection fraction is severely decreased. CONCLUSIONS Indications: Re-Assess Function Limited Study Normal LV size and function. Estimated EF is 55 to 60%. Severely RA dilated right ventricle as well as right atrium. IVS flattening noted both in systole and diastole indicating both pressure and volume overload Kobe Barahona (Electronically Signed) Final Date: 14 May 2025 19:49
--- NOTE | 2025-05-14 11:08 | PC.SS ---
Updated clinicals submitted to [facility] on [facility]. Response is pending.
--- NOTE | 2025-05-14 13:30 | PC.SS ---
SS contacted [facility] and they do not have beds available.
--- NOTE | 2025-05-14 14:50 | ESPR_ITS ---
Documentation for date of: 05/14/25 Senior resident attestation: Patient was seen at the bedside, continued on mechanical ventilation via trach collar, patient is awake and alert able to communicate with signs and writing aids. Dialysis catheter has been discontinued due to stable renal function. Noted increase in WBC count, patient stayed afebrile, urine output adequate, continued on IV Zosyn, IV cefepime was discontinued as sputum culture show pathogen resistant to cefepime. Added Levaquin 750 Mg every 48 hours per sensitivity and creatinine clearance. To be continued for 5 more days. Per case management, patient can be transferred to LTAC or subacute pending he is medically cleared for 48 hours. Anticipate discharge for if patient stays medically stable. Patient evaluated and examined at the bedside, plan of care discussed with rest of the team including my attending physician, except as noted. Quresh PGY3 Subjective Subjective Interval history: No acute events overnight.?Patient seen and examined at bedside this AM.?Patient is mechanically vented on trach, but he is fully awake and interactive, writes on whiteboard well for communication. Labs and vitals were reviewed.?Creatinine is stable at 3.8. Will continue bumex for fluid overload as patient is still making urine. Continue IV Zosyn for possible hospital-acquired pneumonia. Adding Levofloxacin today due to high aspiration risk and previous Pseudomonnas infection. No further complaints at this time. Goal has been for patient to remain stable for greater than 48 hours, then pending discharge to LTAC. Review of systems otherwise negative except what is mentioned above. Exam Vital Signs Temp Pulse Resp BP Pulse Ox O2 Del Method O2 Flow Rate 97.3 F 82 21 H 116/71 100 Mechanical Ventilation 10 05/14/25 12:00 05/14/25 12:00 05/14/25 12:00 05/14/25 12:05/14/25 12:05/14/25 00:05/11/25 14:41 FiO2 50 05/14/25 11:42 Narrative Exam Constitutional: Alert, oriented x 3 and mild distress. Nods and expresses self to questions, writes well on white board for response. Elderly male, morbidly obese, MMM. HEENT: Vision grossly intact. Patent nares. Trachea midline. Tracheostomy tube in situ, exit site clean. Respiratory: Chest normal on inspection and decreased air entry in all lung sims, transmitted sounds and congestion on anterior chest wall, middle and upper lobes. Cardiovascular: S1 and S2 audible, RRR. No murmurs carotid bruit. No gross JVD. Abdominal: Soft, obese and non tender to palpation in all quadrants. BS +. Jejunostomy tube in situ, exit site clean Genitourinary: No bladder tenderness, no flank pain. Normal to palpation Musculoskeletal: Extremities tone within normal limits. 2+ bilateral lower extremity edema. Neurological: CN II - XII grossly intact. Extremity motor and sensation grossly intact. Skin: Warm, dry and intact. Large sacral decubitus ulcer, necrotic tissue noted, easily friable. Sanguinous oozing. Packed with dressings. Psychiatric: Patient has good affect, is cooperative Objective Labs 05/15/25 05:21 05/14/25 05:30 Labs: Laboratory Results - last 24 hr 05/14/25 05:30 WBC 21.6 H RBC 2.52 L Hgb 7.2 L Hct 23.4 L MCV 93 MCH 28.6 MCHC 30.8 L RDW Std Deviation 59.6 H Plt Count 492 H D Neut % (Auto) 70 Lymph % (Auto) 19 [place] % (Auto) 7 Eos % (Auto) 2 Baso % (Auto) 0 Neut # (Auto) 15.1 H Lymph # (Auto) 4.2 [place] # (Auto) 1.6 H Eos # (Auto) 0.4 Baso # (Auto) 0.0 Immature Gran # (Auto) 0.30 H Absolute Nucleated RBC 0.02 H Immature Gran % 1 H Nucleated RBC % 0 Sodium 140 Potassium 4.8 Chloride 103 Carbon Dioxide 25.9 Anion Gap 11 BUN 94 H Creatinine 3.8 H Estim Creat Clear Calc 32.0 L eGFR 17 L BUN/Creatinine Ratio 25 H Glucose 164 H Calculated Osmolality 312 H Calcium 8.9 Corrected Calcium 9.5 Phosphorus 4.5 Magnesium 2.7 H Total Bilirubin 0.4 AST 54 H ALT 24 Alkaline Phosphatase 316 H D Total Protein 6.3 Albumin 3.3 L Globulin 3.0 Albumin/Globulin Ratio 1.1 L ABG Interpretation ABG results: 04/18/25 04/18/25 04/18/25 04:40 06:27 10:30 ABG pH 7.28 L 7.33 L 7.36 ABG pCO2 72 H* 67 H 61 H ABG pO2 132 H 60 L D 60 L ABG HCO3 34 H 35 H 34 H ABG O2 Saturation 100 H 93 93 ABG Base Excess 6 H 7 H 8 H 04/19/25 05/10/25 08:53 07:40 ABG pH 7.47 H D 7.52 H ABG pCO2 45 D 40 ABG pO2 66 L 60 L ABG HCO3 33 H 32 H ABG O2 Saturation 96 94 ABG Base Excess 8 H 8 H Quality Measures Quality Measures VTE therapy Advance care planning discussed with:: patient Assessment & Plan Assessment Current Active Medications: Generic Name Dose Route Start Last Admin Trade Name Freq PRN Reason Stop Dose Admin Acetaminophen 650 mg 05/01/25 08:47 05/06/25 07:14 Acetaminophen 325 Mg Tablet PO 05/22/25 20:42 650 mg Q6HR PRN Administration pain 1-3 OR Fever >100.4 Acetylcysteine 3 ml 05/10/25 15:00 05/14/25 06:15 Acetylcysteine Rt Gloria 10% 4 Ml Nebu INH 06/09/25 14:59 3 ml Q8HRRT KOURTNEY Administration Albuterol/Ipratropium 3 ml 05/10/25 15:00 05/14/25 06:15 Albuterol/Ipratropium (Duoneb) Rt Gloria 3 Ml Nebu INH 06/09/25 14:59 3 ml Q8HRRT KOURTNEY Administration Amiodarone HCl 200 mg 05/12/25 13:45 05/14/25 09:35 Amiodarone Hcl 200 Mg Tablet GT 06/11/25 13:44 200 mg QDAY KOURTNEY Administration Artificial Tears 0 drop 04/14/25 19:33 05/07/25 20:31 Artificial Tears 225 Drop/15 Ml Btl BOTH EYES 05/14/25 19:32 1 drop PRN PRN Administration TO KEEP EYES MOIST Ascorbic Acid 500 mg 04/17/25 21:00 05/14/25 09:34 Ascorbic Acid 250 Mg Tablet GT 05/17/25 20:59 500 mg BID KOURTNEY Administration Bumetanide 1 mg 05/12/25 10:00 05/14/25 05:25 Bumetanide Inj 0.25 Mg/Ml Vial 4 Ml IVP 06/11/25 09:59 1 mg BIDD KOURTNEY Administration Dextrose 25 ml 05/12/25 13:47 Dextrose 50%-Water Inj 50 Ml Syringe IV 06/11/25 13:46 Q15MIN PRN BG 50-70 responsive npo pt Dextrose 50 ml 05/12/25 13:48 Dextrose 50%-Water Inj 50 Ml Syringe IV 06/11/25 13:47 Q15MIN PRN BG <50 OR BG <70 & pt unresponsive Gabapentin 100 mg 05/11/25 14:05 05/14/25 05:25 Gabapentin 100 Mg Capsule PO 06/10/25 14:04 100 mg TID KOURTNEY Administration Glucagon 1 mg 05/12/25 13:49 Glucagon Inj 1 Mg Vial IM 06/11/25 13:48 Q15MIN PRN BG <70, and no IV access Albumin Human 25 gm in 100 mls @ 100 mls/min 04/24/25 11:52 Albuminar-25 Ivpb IV PRN PRN DIALYSIS Piperacillin Sod/Tazobactam 100 mls @ 25 mls/hr 05/09/25 13:03 05/14/25 05:26 Sod 4.5 gm/ Sodium Chloride IV 05/16/25 13:02 25 mls/hr Q8HR KOURTNEY Administration Protocol Levofloxacin/Dextrose 750 mg in 150 mls @ 100 mls/hr 05/14/25 21:00 Levaquin Ivpb IV 05/21/25 20:59 Q48HR@2100 [facility] Insulin Glargine 38 unit 05/13/25 09:00 05/14/25 09:36 Insulin Glargine (Lantus) 5 Unit/0.05 Ml (Per 5 Units) SC 06/12/25 08:59 38 unit QDAY [facility] Administration Insulin Human Lispro 0 unit 05/12/25 18:00 05/14/25 12:45 Insulin Lispro (Admelog) 1 Unit/0.01 Ml Unit SC 06/11/25 17:59 2 unit Q6HR KOURTNEY Administration Protocol Lansoprazole 30 mg 05/05/25 09:00 05/14/25 09:43 Lansoprazole 30 Mg Tab.Rap.Dr DUARTE 06/04/25 08:59 30 mg QDAY KOURTNEY Administration Pharmacy Consult 1 each 04/24/25 08:43 Pharmacy Renal Dose Adjustment 1 Ea XX 05/24/25 08:42 PRN PRN CONSULT Pharmacy Consult 1 each 05/14/25 08:22 Pharmacy Renal Dose Adjustment 1 Ea XX 06/13/25 08:21 PRN PRN CONSULT Sennosides 2 tab 05/02/25 09:00 05/14/25 09:37 Senna Tablet GT 06/01/25 08:59 2 tab QDAY KOURTNEY Administration Protocol Sodium Hypochlorite 473 ml 05/06/25 21:00 05/14/25 09:42 Sod Hypochlorite 1/ Str 473 Ml Btl IRRIG 06/05/25 20:59 1 applicatio BID KOURTNEY Administration Zinc Sulfate 220 mg 04/18/25 09:00 05/14/25 09:36 Zinc Sulfate 220 Mg Capsule GT 05/18/25 08:59 220 mg QDAY KOURTNEY Administration Plan Patient is a 64-year-old male with past medical history of DM2, hypertension, A- fib, and Jehova's witness was initially admitted to the ICU on 02/27/2025 for shock and acute on chronic hypoxic respiratory failure. Patient has been s/p tracheostomy. Patient was sent to [facility] 04/09 for laparoscopic J-tube placement as patient required bariatric surgery service, received back to [facility] on 04/13. On 05/09, patient was upgraded to ICU due to bradycardia requiring transcutaneous pacing. He was briefly placed on dopamine drip, and went into unstable fib with RvR requiring cardioversion x1. Was then placed on phenylephrine drip. Patient received bronchoscopy which showed mucous plugging, currently on Zosyn and Levofloxacin. He was subsequently downgraded to telemetry since 05/11. #Acute on Chronic Respiratory Failure secondary to mucous plug #Healthcare-Associated Pneumonia #Leukocytosis Patient noted to have acute on chronic respiratory failure, required bronchoscopy w/ mucous plugs removed. Previous sputum Pseudomnas (04/03/2025) 05/09/2025 Bronchial washing culture grew pseudomonas, sensitive to Zosyn Plan: -Continue Zosyn (05/09/2025-, vancomycin was discontinued (05/09/2025-05/12/25). doxycycline also discontinued (05/12-05/13). -Started on Levofloxacin 750 mg every 48 hrs due to concern for aspiration PNA and hx of Pseudomonnas infection (05/14/25- -Blow-by during the day, mechanical ventilation at night as needed at baseline, currently on mechanical ventilation -DuoNeb, Mucomyst and chest physiotherapy scheduled #Paroxysmal atrial fibrillation Per cardiology there is a concern of heart block, tachybradycardia syndrome as well. [id number] score of 3 points indicating 3.2% risk of stroke per year HAS-BLED: 3. High risk of major bleeding 05/13: Discussed with integrated marketing intern?will start on amiodarone previous dose, 200 mg daily. Per cardiology patient is a poor candidate for pacemaker placement, patient was informed at bedside by cardiology team. He verbalized understanding. Plan: - Resumed p.o. amiodarone. - Cardiology consulted, appreciate recommendations - Patient will need anticoagulation, however has low hemoglobin, bleeding wound will defer anticoagulation for now. #Congestive heart failure, HFpEF 65% #Diastolic dysfunction, grade 3 #Pulmonary hypertension #Right heart failure #BASIA/OHS #Moderate to severe a AOV calcification with no stenosis Patient has a past medical history of right heart faillure, Diastolic dysfucntion, and HFpEF 65% likely in the setting of cardiomypoathy seconadary to morbid obesity form BASIA/OHS. Given Cxr noted with prominent vascular congestion, consider repeat BNP, although hemodynamically unstable given pressors but may consider. No pheriphearl edema noted. Cxr (05/09/2025): Mild Heart Failure, Prominent vascular congestion and Moderate to large right pleural effusion Echo (04/29/2025): Normal LV size and function. Estimated EF of 65%. Grade III Diastolic Dysfunction.Right ventricle is dilated with mild RV dysfunction RVSP 47mmHg. RAP 15mmHg.Severe biatrial dilation.Moderate to Severe AOV calcification with no stenosis <ild tricuspid regurgitation. No pericardial effusion. Plan -Continue Bumex 1 mg IVP twice daily, will assess response and uptitrate as needed in the morning -Patient 1500 cc/day fluid restriction, daily weights, tube feeds resumed -K >4 and Mg >2 #Acute kidney injury-suspicion of ischemic ATN, resolved #Fluid overload #Acute on chronic hypoxic respiratory failure, improving. Patient looks clinically hypervolemic at this time 04/20 ? Attempt was made to place Fuller catheter however unable to pass catheter due to significant resistance and attempt was terminated. Discussed with nursing about possibility of weighing briefs daily. Patient had temporary hemodialysis catheter placed 04/24, receiving dialysis had 1 L removed on 04/24, 2 L on 04/25, 2.14 on 04/26, 2.1 L on 04/29; temporary dialysis catheter discontinued on 05/06 Patient being followed by nephrology, nephrology agrees with diuresis for now, will need close monitoring, poor candidate for dialysis due to body habitus and also has chronic anemia with wound bleeding from sacral region-endorsement clerk did discuss with patient in detail, he verbalizes understanding. Plan: -Continue Bumex 1 mg twice daily, will uptitrate as needed -Antibiotics as above -Monitor I&O's -Avoid nephrotoxic agents -Renally dose medication #Decubitus ulcer status post excisional debridement of sacral decubitus ulcer Recent debridement of large decubitus ulcer on 05/02/2025 likely secondary to morbid obestiy and lack of mobility. 04/29: excisional debridement of sacral decubitus ulcer, washout and placement of wound VAC. 05/02: Patient had significant bleeding overnight, wound VAC leaked. Hemoglobin stable this morning, patient's bleeding from wound overnight was controlled with suture ligation. Wound was assessed by general surgeon, patient was transitioned back to red dry dressings daily. plan -General Surgery consulted, wound care per general surgery recommendations #Jejunostomy tube #Abdominal abscess - resolved Patient report said that there was an intra-abdominal abscess that have could have been from a perforated ulcer in the past See also note reviewed, mentions that patient likely had a marginal ulcer, but also was not seen on EGD without, currently patient has no abdominal tenderness and is totally asymptomatic. No current drain at this time Patient is status post laparoscopic J-tube placement and is currently on feeds Patient will continue to have this tube and will likely go to a long-term care facility with this until patient can swallow safely Plan: ? Monitor vitals closely #Normocytic normochromic anemia Multifactorial. Patient's baseline hemoglobin throughout the hospitalization has been in the range 9?11, patient did have some bleeding from wound VAC site on 05/02 which was controlled by suture ligation by general surgery. Had recurrent bleeding and eventually heparin drip was held. Patient has been receiving erythropoietin and ferumoxytol to improve underlying anemia - Patient is a Uatsdin, denies any blood transfusion/blood products - Will repeat CBC as needed #Right internal jugular venous thrombosis #Right arm swelling Continuing free water flushes, patient has gone multiple days of heparin drip since 04/01 Right upper extremity ultrasound May 04-shows right IJ thrombus Plan: ? Continue to hold heparin drip due to recurrent sacral ulcer bleeding #Morbid obesity #DM2 A1C 7.6 on 03/05/2025 Patient has a BMI of 79.5->68.7 Attempted to prescribe tirzepatide to outside pharmacy to bring inpatient however no one is able to pick it up for the patient. Plan: - ISS scale 2 - Hypoglycemia protocol - 38 units of Lantus. #Health Maintenance Disposition: Telemetry DVT prophylaxis: None, patient is Uatsdin and has a bleeding sacral wound GI prophylaxis: Protonix Diet: 2Cal Tube Feeds with 30 cc/hour water flush CODE STATUS: Full code Patient plan of care was discussed with the attending physician, Dr. Turcios. Meena Dutta PGY-1 Attending Provider Attestation/Addendum I have discussed and was present for the essential components of the history, physical examination, diagnosis, and treatment plan with the resident. I agree with the patient's care as documented by the resident and amended herein by me. Arnol Turcios, DO. Patient seen and evaluated this AM. No acute events overnight, the patient is doing very well, WBC downtrending to 21, BUN improved, creatinine stable 3.8. Bronchial cultures demonstrated Pseudomonas, will continue IV antibiotics, Zosyn and add levofloxacin for dual pseudomonal coverage considering this is a high risk individual. Will likely continue both for 5 to 7 days. Social work notified, I think the patient is stable and can be discharged to LTAC at this time, the earliest most likely be on . Will continue to monitor closely. Although this document has been carefully reviewed, there may still be some phonetic and other typographical errors. These errors are purely grammatical due to imperfections in the software program and should not be construed in any way to compromise the substance of the patient's medical care during this visit.
--- NOTE | 2025-05-14 15:18 | PD.RESPRO ---
Documentation for date of: 05/14/25 Subjective Subjective Interval history: Overnight events: No acute events overnight Patient was seen and examined at bedside. AM vitals and labs reviewed. Patient has no complaints at this time. Communicated with simple questions that the patient could nod or shake his head in response. Patient denied any new symptoms or concerns. Cr continues to trend upwards with latest value reading 3.8 and eGFR continues to trend downwards with AM reading at 17. Review of systems otherwise negative except for what is mentioned above. Exam Vital Signs Temp Pulse Resp BP Pulse Ox O2 Del Method O2 Flow Rate 97.3 F 82 21 H 116/71 100 Mechanical Ventilation 10 05/14/25 12:00 05/14/25 12:00 05/14/25 12:00 05/14/25 12:00 05/14/25 12:00 05/14/25 00:01 05/11/25 14:41 FiO2 50 05/14/25 11:42 Narrative Exam Physical Exam: General: Alert, no acute distress. Skin: Warm, dry, intact. Head: Normocephalic, atraumatic. Eye: Normal conjunctiva, PERRL. Throat: Oral mucosa moist. Tracheostomy tube in place. Cardiovascular: Could not appreciate heart sounds due to body habitus. Respiratory: Lungs clear to auscultation in upper lobes. Could not appreciate lung sounds in lower lobes due to body habitus. No crackles or wheezing noted. Gastrointestinal: Soft, nontender, non-distended. No guarding or rebound tenderness. Extremities: No edema, no cyanosis, no clubbing. 1+ radial pulse bilaterally, 1+ posterior tibial pulse bilaterally. Neuro: No focal deficits observed. Nonverbal, moving all extremities. No overt cerebellar signs/incoordination. Psychiatric: Cooperative, appropriate affect. Objective Labs 05/16/25 05:10 05/16/25 05:10 Labs: Laboratory Results - last 24 hr 05/14/25 05:30 WBC 21.6 H RBC 2.52 L Hgb 7.2 L Hct 23.4 L MCV 93 MCH 28.6 MCHC 30.8 L RDW Std Deviation 59.6 H Plt Count 492 H D Neut % (Auto) 70 Lymph % (Auto) 19 [place] % (Auto) 7 Eos % (Auto) 2 Baso % (Auto) 0 Neut # (Auto) 15.1 H Lymph # (Auto) 4.2 [place] # (Auto) 1.6 H Eos # (Auto) 0.4 Baso # (Auto) 0.0 Immature Gran # (Auto) 0.30 H Absolute Nucleated RBC 0.02 H Immature Gran % 1 H Nucleated RBC % 0 Sodium 140 Potassium 4.8 Chloride 103 Carbon Dioxide 25.9 Anion Gap 11 BUN 94 H Creatinine 3.8 H Estim Creat Clear Calc 32.0 L eGFR 17 L BUN/Creatinine Ratio 25 H Glucose 164 H Calculated Osmolality 312 H Calcium 8.9 Corrected Calcium 9.5 Phosphorus 4.5 Magnesium 2.7 H Total Bilirubin 0.4 AST 54 H ALT 24 Alkaline Phosphatase 316 H D Total Protein 6.3 Albumin 3.3 L Globulin 3.0 Albumin/Globulin Ratio 1.1 L ABG Interpretation ABG results: 04/18/25 04/18/25 04/18/25 04:40 06:27 10:30 ABG pH 7.28 L 7.33 L 7.36 ABG pCO2 72 H* 67 H 61 H ABG pO2 132 H 60 L D 60 L ABG HCO3 34 H 35 H 34 H ABG O2 Saturation 100 H 93 93 ABG Base Excess 6 H 7 H 8 H 04/19/25 05/10/25 08:53 07:40 ABG pH 7.47 H D 7.52 H ABG pCO2 45 D 40 ABG pO2 66 L 60 L ABG HCO3 33 H 32 H ABG O2 Saturation 96 94 ABG Base Excess 8 H 8 H Quality Measures Quality Measures VTE therapy Advance care planning discussed with:: patient Assessment & Plan Assessment Current Active Medications: Generic Name Dose Route Start Last Admin Trade Name Freq PRN Reason Stop Dose Admin Acetaminophen 650 mg 05/01/25 08:47 05/06/25 07:14 Acetaminophen 325 Mg Tablet PO 05/22/25 20:42 650 mg Q6HR PRN Administration pain 1-3 OR Fever >100.4 Acetylcysteine 3 ml 05/10/25 15:00 05/14/25 06:15 Acetylcysteine Rt Gloria 10% 4 Ml Nebu INH 06/09/25 14:59 3 ml Q8HRRT KOURTNEY Administration Albuterol/Ipratropium 3 ml 05/10/25 15:00 05/14/25 06:15 Albuterol/Ipratropium (Duoneb) Rt Gloria 3 Ml Nebu INH 06/09/25 14:59 3 ml Q8HRRT KOURTNEY Administration Amiodarone HCl 200 mg 05/12/25 13:45 05/14/25 09:35 Amiodarone Hcl 200 Mg Tablet GT 06/11/25 13:44 200 mg QDAY KOURTNEY Administration Artificial Tears 0 drop 04/14/25 19:33 05/07/25 20:31 Artificial Tears 225 Drop/15 Ml Btl BOTH EYES 05/14/25 19:32 1 drop PRN PRN Administration TO KEEP EYES MOIST Ascorbic Acid 500 mg 04/17/25 21:00 05/14/25 09:34 Ascorbic Acid 250 Mg Tablet GT 05/17/25 20:59 500 mg BID KOURTNEY Administration Bumetanide 1 mg 05/12/25 10:00 05/14/25 05:25 Bumetanide Inj 0.25 Mg/Ml Vial 4 Ml IVP 06/11/25 09:59 1 mg BIDD KOURTNEY Administration Dextrose 25 ml 05/12/25 13:47 Dextrose 50%-Water Inj 50 Ml Syringe IV 06/11/25 13:46 Q15MIN PRN BG 50-70 responsive npo pt Dextrose 50 ml 05/12/25 13:48 Dextrose 50%-Water Inj 50 Ml Syringe IV 06/11/25 13:47 Q15MIN PRN BG <50 OR BG <70 & pt unresponsive Gabapentin 100 mg 05/11/25 14:05 05/14/25 14:51 Gabapentin 100 Mg Capsule PO 06/10/25 14:04 100 mg TID KOURTNEY Administration Glucagon 1 mg 05/12/25 13:49 Glucagon Inj 1 Mg Vial IM 06/11/25 13:48 Q15MIN PRN BG <70, and no IV access Albumin Human 25 gm in 100 mls @ 100 mls/min 04/24/25 11:52 Albuminar-25 Ivpb IV PRN PRN DIALYSIS Piperacillin Sod/Tazobactam 100 mls @ 25 mls/hr 05/09/25 13:03 05/14/25 14:51 Sod 4.5 gm/ Sodium Chloride IV 05/16/25 13:02 25 mls/hr Q8HR KOURTNEY Administration Protocol Levofloxacin/Dextrose 750 mg in 150 mls @ 100 mls/hr 05/14/25 21:00 Levaquin Ivpb IV 05/21/25 20:59 Q48HR@2100 KOURTNEY Insulin Glargine 38 unit 05/13/25 09:00 05/14/25 09:36 Insulin Glargine (Lantus) 5 Unit/0.05 Ml (Per 5 Units) SC 06/12/25 08:59 38 unit QDAY KOURTNEY Administration Insulin Human Lispro 0 unit 05/12/25 18:00 05/14/25 12:45 Insulin Lispro (Admelog) 1 Unit/0.01 Ml Unit SC 06/11/25 17:59 2 unit Q6HR KOURTNEY Administration Protocol Lansoprazole 30 mg 05/05/25 09:00 05/14/25 09:43 Lansoprazole 30 Mg Tab.Rap. GT 06/04/25 08:59 30 mg QDAY KOURTNEY Administration Pharmacy Consult 1 each 04/24/25 08:43 Pharmacy Renal Dose Adjustment 1 Ea XX 05/24/25 08:42 PRN PRN CONSULT Pharmacy Consult 1 each 05/14/25 08:22 Pharmacy Renal Dose Adjustment 1 Ea XX 06/13/25 08:21 PRN PRN CONSULT Sennosides 2 tab 05/02/25 09:00 05/14/25 09:37 Senna Tablet GT 06/01/25 08:59 2 tab QDAY KOURTNEY Administration Protocol Sodium Hypochlorite 473 ml 05/06/25 21:00 05/14/25 09:42 Sod Hypochlorite 1/4 Str 473 Ml Btl IRRIG 06/05/25 20:59 1 applicatio BID KOURTNEY Administration Zinc Sulfate 220 mg 04/18/25 09:00 05/14/25 09:36 Zinc Sulfate 220 Mg Capsule GT 05/18/25 08:59 220 mg QDAY KOURTNEY Administration Plan Mr. Ortega is a 64 year old gentleman with a relevant medical history of A-fib, T2DM, HTN, severe right-sided heart failure, s/p tracheostomy, and Jehova's Witness, who was admitted to [facility] ICU for shock and acute on chronic hypoxic respiratory failure. Nephrology was consulted due to worsening renal function. #Acute kidney injury due to suspected ATN 2/2 CHF and shock Elevated Cr & BUN, decreased eGFR, in setting of shock that can decrease bloodflow to kidneys, resulting in ATN. Lab values continue to be out of normal range. - Pt want to avoid dialysis - Continue diuresis. - Nephrology will continue to follow. Patient was discussed with the Nephrology attending, Dr. Minor. Thank you for allowing us to participate in the care of this patient. Ollie Sandhu, PGY-1 Attending Provider Attestation/Addendum Pt is seen and examined. labs reviewed. notes reviewed. agree with assessment and plan and findings of resident. Clarence Minor MD
--- NOTE | 2025-05-14 15:46 | PC.SS ---
Rounding Note: WBC is downtrending. Patient will require 2 weeks of IV antibiotics upon discharge. LTAC placement pending.
[2025-05-14] MEDS: ACETAMINOPHEN 325 MG TABLET 650 MG PO (19:52)
[2025-05-14] MEDS: LEVOFLOXACIN/D5W 750MG IVPB 750 MG/150 ML BAG 100 MG IV (22:02)
--- NOTE | 2025-05-14 23:26 | ESPR_ITS ---
Documentation for date of: 05/14/25 Subjective Subjective Interval history: Patient is seen and examined at bedside No acute overnight events and no new cardiac complaints as of now Vitals are stable. Patient is still on mechanical ventilator assist-control mode with FiO2 50%, PEEP 8. Renal functions appears to be stable and able to maintain urine output of more than 1 L Labs showed uptrending BUN and creatinine Telemetry is reviewed and patient still appears to be in atrial fibrillation with controlled ventricular rate No bradycardia noted overnight. Recommend to continue telemetry monitoring In view of ongoing sacral ulcer with recurrent infections, pacemaker placement cannot be done. But fortunately patient did not have any further episodes of bradycardia. So no need of pacemaker placement as of now Recommended to continue Bumex 1 mg IV twice daily for now Exam Vital Signs Temp Pulse Resp BP Pulse Ox O2 Del Method O2 Flow Rate 97.8 F 100 29 H 101/79 96 Mechanical Ventilation 10 05/14/25 21:03 05/14/25 22:01 05/14/25 21:03 05/14/25 22:01 05/14/25 21:03 05/14/25 21:03 05/11/25 14:41 FiO2 50 05/14/25 15:45 Narrative Exam General: Awake. on Mechanical ventilator HEENT: Normocephalic, atraumatic, mucous membranes moist. Heart: IRRegular rate and rhythm, no murmurs. Lungs: Clear to auscultation with no wheezing or crackles. Abdomen: Soft, nondistended, nontender, positive bowel sounds. ?No guarding or rebound tenderness. Neurologic: Alert and oriented x3, no gross neurological deficit, and patient able to move all 4 extremities. Extremities: No edema. Skin: Large sacral ulcer noted Objective Labs 05/16/25 05:10 05/16/25 05:10 Labs: Laboratory Results - last 24 hr 05/14/25 05:30 WBC 21.6 H RBC 2.52 L Hgb 7.2 L Hct 23.4 L MCV 93 MCH 28.6 MCHC 30.8 L RDW Std Deviation 59.6 H Plt Count 492 H D Neut % (Auto) 70 Lymph % (Auto) 19 [place] % (Auto) 7 Eos % (Auto) 2 Baso % (Auto) 0 Neut # (Auto) 15.1 H Lymph # (Auto) 4.2 [place] # (Auto) 1.6 H Eos # (Auto) 0.4 Baso # (Auto) 0.0 Immature Gran # (Auto) 0.30 H Absolute Nucleated RBC 0.02 H Immature Gran % 1 H Nucleated RBC % 0 Sodium 140 Potassium 4.8 Chloride 103 Carbon Dioxide 25.9 Anion Gap 11 BUN 94 H Creatinine 3.8 H Estim Creat Clear Calc 32.0 L eGFR 17 L BUN/Creatinine Ratio 25 H Glucose 164 H Calculated Osmolality 312 H Calcium 8.9 Corrected Calcium 9.5 Phosphorus 4.5 Magnesium 2.7 H Total Bilirubin 0.4 AST 54 H ALT 24 Alkaline Phosphatase 316 H D Total Protein 6.3 Albumin 3.3 L Globulin 3.0 Albumin/Globulin Ratio 1.1 L ABG Interpretation ABG results: 04/18/25 04/18/25 04/18/25 04:40 06:27 10:30 ABG pH 7.28 L 7.33 L 7.36 ABG pCO2 72 H* 67 H 61 H ABG pO2 132 H 60 L D 60 L ABG HCO3 34 H 35 H 34 H ABG O2 Saturation 100 H 93 93 ABG Base Excess 6 H 7 H 8 H 04/19/25 05/10/25 08:53 07:40 ABG pH 7.47 H D 7.52 H ABG pCO2 45 D 40 ABG pO2 66 L 60 L ABG HCO3 33 H 32 H ABG O2 Saturation 96 94 ABG Base Excess 8 H 8 H Quality Measures Quality Measures VTE therapy Advance care planning discussed with:: patient Assessment & Plan Assessment Current Active Medications: Generic Name Dose Route Start Last Admin Trade Name Freq PRN Reason Stop Dose Admin Acetaminophen 650 mg 05/01/25 08:47 05/14/25 19:52 Acetaminophen 325 Mg Tablet PO 05/22/25 20:42 650 mg Q6HR PRN Administration pain 1-3 OR Fever >100.4 Acetylcysteine 3 ml 05/10/25 15:00 05/14/25 06:15 Acetylcysteine Rt Gloria 10% 4 Ml Nebu INH 06/09/25 14:59 3 ml Q8HRRT KOURTNEY Administration Albuterol/Ipratropium 3 ml 05/10/25 15:00 05/14/25 06:15 Albuterol/Ipratropium (Duoneb) Rt Gloria 3 Ml Nebu INH 06/09/25 14:59 3 ml Q8HRRT KOURTNEY Administration Amiodarone HCl 200 mg 05/12/25 13:45 05/14/25 09:35 Amiodarone Hcl 200 Mg Tablet GT 06/11/25 13:44 200 mg QDAY KOURTNEY Administration Ascorbic Acid 500 mg 04/17/25 21:00 05/14/25 22:01 Ascorbic Acid 250 Mg Tablet GT 05/17/25 20:59 500 mg BID KOURTNEY Administration Bumetanide 1 mg 05/12/25 10:00 05/14/25 22:01 Bumetanide Inj 0.25 Mg/Ml Vial 4 Ml IVP 06/11/25 09:59 1 mg BIDD KOURTNEY Administration Dextrose 25 ml 05/12/25 13:47 Dextrose 50%-Water Inj 50 Ml Syringe IV 06/11/25 13:46 Q15MIN PRN BG 50-70 responsive npo pt Dextrose 50 ml 05/12/25 13:48 Dextrose 50%-Water Inj 50 Ml Syringe IV 06/11/25 13:47 Q15MIN PRN BG <50 OR BG <70 & pt unresponsive Gabapentin 100 mg 05/11/25 14:05 05/14/25 22:01 Gabapentin 100 Mg Capsule PO 06/10/25 14:04 100 mg TID KOURTNEY Administration Glucagon 1 mg 05/12/25 13:49 Glucagon Inj 1 Mg Vial IM 06/11/25 13:48 Q15MIN PRN BG <70, and no IV access Albumin Human 25 gm in 100 mls @ 100 mls/min 04/24/25 11:52 Albuminar-25 Ivpb IV PRN PRN DIALYSIS Piperacillin Sod/Tazobactam 100 mls @ 25 mls/hr 05/09/25 13:03 05/14/25 22:00 Sod 4.5 gm/ Sodium Chloride IV 05/16/25 13:02 25 mls/hr Q8HR KOURTNEY Administration Protocol Levofloxacin/Dextrose 750 mg in 150 mls @ 100 mls/hr 05/14/25 21:00 05/14/25 22:02 Levaquin Ivpb IV 05/21/25 20:59 100 mls/hr Q48HR@2100 KOURTNEY Administration Insulin Glargine 38 unit 05/13/25 09:00 05/14/25 09:36 Insulin Glargine (Lantus) 5 Unit/0.05 Ml (Per 5 Units) SC 06/12/25 08:59 38 unit QDAY KOURTNEY Administration Insulin Human Lispro 0 unit 05/12/25 18:00 05/14/25 12:45 Insulin Lispro (Admelog) 1 Unit/0.01 Ml Unit SC 06/11/25 17:59 2 unit Q6HR KOURTNEY Administration Protocol Lansoprazole 30 mg 05/05/25 09:00 05/14/25 09:43 Lansoprazole 30 Mg Tab. GT 06/04/25 08:59 30 mg QDAY KOURTNEY Administration Pharmacy Consult 1 each 04/24/25 08:43 Pharmacy Renal Dose Adjustment 1 Ea XX 05/24/25 08:42 PRN PRN CONSULT Pharmacy Consult 1 each 05/14/25 08:22 Pharmacy Renal Dose Adjustment 1 Ea XX 06/13/25 08:21 PRN PRN CONSULT Sennosides 2 tab 05/02/25 09:00 05/14/25 09:37 Senna Tablet GT 06/01/25 08:59 2 tab QDAY KOURTNEY Administration Protocol Sodium Hypochlorite 473 ml 05/06/25 21:00 05/14/25 22:03 Sod Hypochlorite 1/4 Str 473 Ml Btl IRRIG 06/05/25 20:59 1 applicatio BID KOURTNEY Administration Zinc Sulfate 220 mg 04/18/25 09:00 05/14/25 09:36 Zinc Sulfate 220 Mg Capsule GT 05/18/25 08:59 220 mg QDAY KOURTNEY Administration Plan 64-year-old male, Yazidi with a past medical history of hypertension, diabetes mellitus type 2, history of atrial fibrillation, CHF HFpEF 65%, grade 3 diastolic dysfunction, right heart failure, RSVP 47, moderate to severe ALB calsifications with no stenosis, status post tracheostomy, s/p PEG Tube at [facility], bariatric team, history of dyspahagia, extensive decubitus ulcers, CKD, history of anemia, history of Diego-en- Y gastric bypass, BASIA/OHS, and morbid obesity. Patient was upgraded to ICU for a third time with in acute respiratory respiratory failure secondary to mucous plug and shock, likely cardiogenic shock secondary to complete heart block requiring pressors and downgraded again # Bradycardia and questionable complete heart block #A-fib with RVR, hemodynamically unstable-cardioverted #Paroxysmal atrial fibrillation Cardiology was consulted 05/09/2025 for significant bradycardia requiring external temporary transcutaneous pacing. Patient was also hypoxic and was transferred to the ICU. Plan was to place a temporary transvenous pacemaker if the patient continues to be bradycardic as he was 100% dependent on the transcutaneous pacing. Bronchoscopy was performed which showed small mucous plug which was removed and patient rhythm was back to his atrial fibrillation with RVR. Patient was on dopamine at that point of time. Patient blood pressure was on the lower side and was unstable and required cardioversion x 1. Dopamine drip was stopped along with Levophed and recommended patient to be placed on phenylephrine drip given the history of the atrial fibrillation with RVR. Continue amiodarone for now for rate control no beta-blockers or calcium channel blockers secondary to the hypotension. EF is preserved on the last echocardiogram. Patient vital signs stabilized after the phenylephrine drip and rate is now controlled between 70 to 90 bpm. Patient has multiple comorbidities as mentioned above and his prolonged hospitalization. He has a significantly large decubitus ulcers which is also contributing to the sepsis and apparently worsening since his admission. Patient is presently ventilator dependent and has a tracheostomy in place along with a jejunostomy. Discussed with the family about his present diagnosis, treatment plan and also discussed with them the goals of care. Discussed with the family regarding the prolonged hospitalization, his multiple comorbidities and the unhealing decubitus ulcer with minimal improvement and family is also going to speak about the goals of care with the primary team. Shock possible multifactorial in the setting of hypoxic respiratory failure along with the bradycardia and underlying sepsis 05/14/2025 Patient is seen and examined at bedside No acute overnight events and no new cardiac complaints as of now Vitals are stable. Patient is still on mechanical ventilator assist-control mode with FiO2 50%, PEEP 8. Renal functions appears to be stable and able to maintain urine output of more than 1 L Labs showed uptrending BUN and creatinine Telemetry is reviewed and patient still appears to be in atrial fibrillation with controlled ventricular rate No bradycardia noted overnight. Recommend to continue telemetry monitoring In view of ongoing sacral ulcer with recurrent infections, pacemaker placement cannot be done. But fortunately patient did not have any further episodes of bradycardia. So no need of pacemaker placement as of now Recommended to continue Bumex 1 mg IV twice daily for now, amiodarone and hold anticoagulation for now #Congestive heart failure #CHF HFpEF 65% #Diastolic dysfunction, grade 3 #Pulmonary hypertension #BASIA/OHS #Moderate to severe a AOV calcification with no stenosis #Moderat to Large Pleural Effusion Patient has a past medical history of right heart faillure, Diastolic dysfucntion, and HFpEF 65% likely in the setting of cardiomypoathy seconadary to morbid obesity form BASIA/OHS. Given Cxr noted with prominent vascular congestion, consider repeat BNP, although hemodynamically unstable given pressors but may consider. No pheriphearl edema noted. Patient's previous Dry weight: 197.9 & Dry BNP 135. Previous [place] 03/19/2025: RAP 8, PAP 27, PCWP 7. BNP____;current cathy/ght 197 Troponin 05/09/2025: <0.02 Cxr (05/09/2025): Mild Heart Failure, Prominent vascular congestion and Moderate to large right pleural effusion Echo (04/29/2025): Normal LV size and function. Estimated EF of 65%. Grade III Diastolic Dysfunction.Right ventricle is dilated with mild RV dysfunction RVSP 47mmHg. RAP 15mmHg.Severe biatrial dilation.Moderate to Severe AOV calcification with no stenosis <ild tricuspid regurgitation. No pericardial effusion. Echo (05/14/2025) : Normal LV size and function. Estimated EF is 55 to 60%. Severely RA dilated right ventricle as well as right atrium. IVS flattening noted both in systole and diastole indicating both pressure and volume overlo Plan -Bumex 2 mg IVP BID -Consider fluid restrictions given pleural effusion, prominent vascular congestion, and repeat BNP -K >4 and Mg >2 #Acute on Chronic Respiratory Failure secondary to mucos plug #Healthcare-Associated Pneumonia #Leukocytosis Patient noted to have acute on chronic respiratory failure, required bronchoscopy w/ mucos plugs removed. Previous sputum Pseudomnas (04/03/2025) Plan -Zosyn (05/09/2025) -Blood culture obtained -Bronchial washing MRSA negative #Large Sacrale Decubitus Ulcer s/p excisional debridement (05/02/2025) Recent debridement of large decubitus ulcer on 05/02/2025 likely secondary to morbid obestiy and lack of mobility. plan -Continue abnitbiotics in the setting of leukocytosis & Healthcare associated pneumonia #CKD stage III Patient previously noted to have an KENIA, likely intrinisc per chart review previously had been noted to have worsening BUN now 105 and Cr 2.9. Plan -Continue to monitor BUN Cr -Consider fluid restrictions in setting of CHF history. #Jejunostomy #history of abdominal abscess s/p percutaneous drainage Plan -Tube feedings currently held #Diabetes Mellitus Type 2 non insulin depedent Patient has past medical history of diabetes mellitus type 2 non insulin depent but since admsision, in february 2025, patient has been started on insulin. Patinents fasting glucose has been less than 180. A1c (03/05/2025): 7.6% #Normocytic Anemia History of normocytic anemia likely secondayr to anemia of chronic disease vs blood loss secondary to large decubitus ulcer. 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 Thank you for the consult and allowing us to participate in the care of the patient. Cardiology will continue to follow. Plan of care discussed with Licensing Worker Kobe Ahumada, PGY2 Attending Provider Attestation/Addendum I have personally seen and examined the patient separately on the above date of service and discussed the plan of care with the resident. I reviewed the resident Dr. Ahumada consultation progress note and agree with the resident findings and plan in the note above and have also edited the documentation to reflect my findings and plan. Kobe Barahona M.D. Interventional Cardiology
[2025-05-15] VITALS (18 sets, daily range): BP systolic 89–125; BP diastolic 55–83; PULSE 77–115; RESP 15–28; TEMP 36.1–37; O2SAT 97–100; BMI 67.8
[2025-05-15] MEDS: PIPER/TAZO INJ 4.5 GM in SODIUM CHLORIDE 0.9% (POP) 100 ML IV ×3 (05:40→22:16)
[2025-05-15] MEDS: BUMETANIDE INJ 0.25 MG/ML VIAL 4 ML 1 MG IVP (05:41)
[2025-05-15] MEDS: GABAPENTIN 100 MG CAPSULE PO ×3 (05:41→22:16)
[2025-05-15 05:52] LABS: Basophils # (Auto) 0.1 Thou/mm3 (0.0-0.2); Basophils % (Auto) 0 % (0-2.5); Eosinophils # (Auto) 0.4 Thou/mm3 (0.0-0.5); Eosinophils % (Auto) 2 % (0-10); Hematocrit 22.6 % (41.0-53.0); Immature Granulocytes Auto 0.39 Thou/mm3 (0.00-0.00); Lymphocytes # (Auto) 4.2 Thou/mm3 (1.0-4.8); Lymphocytes % (Auto) 19 % (10-50); Mean Corpuscular HGB Conc 31.4 g/dl (31.0-37.0); Mean Corpuscular Hemoglobin 29.5 pg (25.0-35.0); Mean Corpuscular Volume 94 fL (80-100); Monocytes # (Auto) 1.5 Thou/mm3 (0.0-0.8); Monocytes % (Auto) 7 % (0-12); Neutrophils # (Auto) 15.8 Thou/mm3 (1.8-7.7); Neutrophils % (Auto) 71 % (37-80); Nucleated Red Blood Cell # 0.00 Thou/mm3 (0.00-0.00); Nucleated Red Blood Cell % 0 /100 WBC (0); Platelet Count 417 Thou/mm3 (140-440); RDW Standard Deviation 60.6 fL (35.1-43.9); Red Blood Count 2.41 Miln/mm3 (4.50-5.90); White Blood Count 22.4 Thou/mm3 (3.8-10.6)
[2025-05-15 06:02] LABS: Hemoglobin 7.1 g/dL (13.5-16.0)
[2025-05-15 06:37] LABS: Alanine Aminotransferase 22 U/L (10-49); Albumin, Serum 3.2 gm/dL (3.4-4.8); Albumin/Globulin Ratio 1.1 (1.2-2.2); Alkaline Phosphatase 284 U/L (46-116); Anion Gap 13 (7-16); Aspartate Amino Transferase 36 U/L (0-34); BUN/Creatinine Ratio 30 Ratio (12-20); Bilirubin,Total 0.4 mg/dL (0.3-1.2); Calcium 8.8 mg/dL (8.3-10.6); Calcium (Corrected) 9.4 mg/dL (8.5-10.1); Carbon Dioxide 27.4 mMol/L (20.0-31.0); Chloride 101 mMol/L (98-107); Creatinine (Component) 3.9 mg/dL (0.6-1.3); Estimated Creatinine Clearance 31.2 mL/min (>60); Globulin 3.0 gm/dL (2.3-3.5); Glucose 150 mg/dL (74-106); Magnesium 2.6 mg/dL (1.6-2.6); Osmolality,Calculated 321 (275-295); Phosphorous 4.8 mg/dL (2.4-5.1); Potassium 4.5 mMol/L (3.4-5.1); Sodium 141 mMol/L (136-145); Total Protein 6.2 gm/dL (5.7-8.2); eGFR 16 See Note
[2025-05-15 06:38] LABS: Blood Urea Nitrogen 116 mg/dL (9-23)
[2025-05-15 07:30] LABS: B-Type Natriuretic Peptide 554 pg/mL (0-100)
[2025-05-15] MEDS: ALBUTEROL/IPRATROPIUM (Duoneb) RT SOL 3 ML NEBU INH ×3 (07:40→22:42)
[2025-05-15] MEDS: ACETYLCYSTEINE RT SOL 10% 4 ML NEBU 3 ML INH ×3 (07:40→22:42)
--- NOTE | 2025-05-15 08:37 | PD.RESPRO ---
Documentation for date of: 05/15/25 Senior resident attestation: Patient was seen at the bedside, continued on mechanical ventilation via trach collar, patient is awake and alert able to communicate with signs and writing aids. Dialysis catheter has been discontinued due to stable renal function. Noted increase in WBC count, patient stayed afebrile, urine output adequate, continued on IV Zosyn, IV cefepime was discontinued as sputum culture show pathogen resistant to cefepime. Added Levaquin 750 Mg every 48 hours per sensitivity and creatinine clearance. To be continued for 5 more days. Per case management, patient can be transferred to LTAC or subacute pending he is medically cleared for 48 hours. Anticipate discharge for if patient stays medically stable. Patient evaluated and examined at the bedside, plan of care discussed with rest of the team including my attending physician, except as noted. Quresh PGY3 Subjective Subjective Interval history: No acute events overnight. Patient seen and examined at bedside this AM. He is fully awake and tolerating mechanical ventilation via trach collar. Today, was able to speak softly and write on white board. Labs and vitals were reviewed. Creatinine has been trending upward . Output not well recorded but patient is still urinating per nurse. Continue IV Zosyn and Levofloxacin (day 1). No further complaints at this time. Still pending discharge to LTAC, likely tomorrow. Review of systems otherwise negative except what is mentioned above. Exam Vital Signs Temp Pulse Resp BP Pulse Ox O2 Del Method O2 Flow Rate 97.1 F 88 22 H 96/69 100 Mechanical Ventilation 10 05/15/25 05:05 05/15/25 05:41 05/15/25 05:05 05/15/25 05:41 05/15/25 05:05 05/15/25 05:05 05/11/25 14:41 FiO2 50 05/15/25 01:00 Narrative Exam Constitutional: Alert, oriented x 3 and no acute distress. Nods and expresses self to questions. Elderly male, morbidly obese. HEENT: Vision grossly intact. Patent nares. Trachea midline. Tracheostomy tube in situ, exit site clean. Respiratory: Chest normal on inspection and decreased air entry in all lung sims, transmitted sounds and congestion on anterior chest wall, middle and upper lobes. Cardiovascular: S1 and S2 audible, RRR. No murmurs carotid bruit. No gross JVD. Abdominal: Soft, obese and non tender to palpation in all quadrants. BS +. Jejunostomy tube in situ, exit site clean Genitourinary: No bladder tenderness, no flank pain. Normal to palpation Musculoskeletal: Extremities tone within normal limits. No lower extremity edema bilaterally. Neurological: CN II - XII grossly intact. Extremity motor and sensation grossly intact. Skin: Warm, dry and intact. Large sacral decubitus ulcer, necrotic tissue noted. Cleanly packed with dressings. Psychiatric: Patient has good affect, is cooperative Objective Labs 05/17/25 07:45 05/17/25 07:45 Labs: Laboratory Results - last 24 hr 05/15/25 05:21 WBC 22.4 H RBC 2.41 L Hgb 7.1 L Hct 22.6 L MCV 94 MCH 29.5 MCHC 31.4 RDW Std Deviation 60.6 H Plt Count 417 D Neut % (Auto) 71 Lymph % (Auto) 19 [place] % (Auto) 7 Eos % (Auto) 2 Baso % (Auto) 0 Neut # (Auto) 15.8 H Lymph # (Auto) 4.2 Mingo # (Auto) 1.5 H Eos # (Auto) 0.4 Baso # (Auto) 0.1 Immature Gran # (Auto) 0.39 H Absolute Nucleated RBC 0.00 Immature Gran % 2 H Nucleated RBC % 0 Sodium 141 Potassium 4.5 Chloride 101 Carbon Dioxide 27.4 Anion Gap 13 BUN 116 H* Creatinine 3.9 H Estim Creat Clear Calc 31.2 L eGFR 16 L BUN/Creatinine Ratio 30 H Glucose 150 H Calculated Osmolality 321 H Calcium 8.8 Corrected Calcium 9.4 Phosphorus 4.8 Magnesium 2.6 Total Bilirubin 0.4 AST 36 H ALT 22 Alkaline Phosphatase 284 H D B-Natriuretic Peptide 554 H* Total Protein 6.2 Albumin 3.2 L Globulin 3.0 Albumin/Globulin Ratio 1.1 L ABG Interpretation ABG results: 04/18/25 04/18/25 04/18/25 04:40 06:27 10:30 ABG pH 7.28 L 7.33 L 7.36 ABG pCO2 72 H* 67 H 61 H ABG pO2 132 H 60 L D 60 L ABG HCO3 34 H 35 H 34 H ABG O2 Saturation 100 H 93 93 ABG Base Excess 6 H 7 H 8 H 04/19/25 05/10/25 08:53 07:40 ABG pH 7.47 H D 7.52 H ABG pCO2 45 D 40 ABG pO2 66 L 60 L ABG HCO3 33 H 32 H ABG O2 Saturation 96 94 ABG Base Excess 8 H 8 H Quality Measures Quality Measures VTE therapy Advance care planning discussed with:: patient Assessment & Plan Assessment Current Active Medications: Generic Name Dose Route Start Last Admin Trade Name Freq PRN Reason Stop Dose Admin Acetaminophen 650 mg 05/01/25 08:47 05/14/25 19:52 Acetaminophen 325 Mg Tablet PO 05/22/25 20:42 650 mg Q6HR PRN Administration pain 1-3 OR Fever >100.4 Acetylcysteine 3 ml 05/10/25 15:00 05/15/25 07:40 Acetylcysteine Rt Gloria 10% 4 Ml Nebu INH 06/09/25 14:59 3 ml Q8HRRT KOURTNEY Administration Albuterol/Ipratropium 3 ml 05/10/25 15:00 05/15/25 07:40 Albuterol/Ipratropium (Duoneb) Rt Gloria 3 Ml Nebu INH 06/09/25 14:59 3 ml Q8HRRT KOURTNEY Administration Amiodarone HCl 200 mg 05/12/25 13:45 05/14/25 09:35 Amiodarone Hcl 200 Mg Tablet GT 06/11/25 13:44 200 mg QDAY KOURTNEY Administration Ascorbic Acid 500 mg 04/17/25 21:00 05/14/25 22:01 Ascorbic Acid 250 Mg Tablet GT 05/17/25 20:59 500 mg BID KOURTNEY Administration Bumetanide 1 mg 05/12/25 10:00 05/15/25 05:41 Bumetanide Inj 0.25 Mg/Ml Vial 4 Ml IVP 06/11/25 09:59 1 mg BIDD KOURTNEY Administration Dextrose 25 ml 05/12/25 13:47 Dextrose 50%-Water Inj 50 Ml Syringe IV 06/11/25 13:46 Q15MIN PRN BG 50-70 responsive npo pt Dextrose 50 ml 05/12/25 13:48 Dextrose 50%-Water Inj 50 Ml Syringe IV 06/11/25 13:47 Q15MIN PRN BG <50 OR BG <70 & pt unresponsive Gabapentin 100 mg 05/11/25 14:05 05/15/25 05:41 Gabapentin 100 Mg Capsule PO 06/10/25 14:04 100 mg TID KOURTNEY Administration Glucagon 1 mg 05/12/25 13:49 Glucagon Inj 1 Mg Vial IM 06/11/25 13:48 Q15MIN PRN BG <70, and no IV access Albumin Human 25 gm in 100 mls @ 100 mls/min 04/24/25 11:52 Albuminar-25 Ivpb IV PRN PRN DIALYSIS Piperacillin Sod/Tazobactam 100 mls @ 25 mls/hr 05/09/25 13:03 05/15/25 05:40 Sod 4.5 gm/ Sodium Chloride IV 05/16/25 13:02 25 mls/hr Q8HR KOURTNEY Administration Protocol Levofloxacin/Dextrose 750 mg in 150 mls @ 100 mls/hr 05/14/25 21:00 05/14/25 22:02 Levaquin Ivpb IV 05/21/25 20:59 100 mls/hr Q48HR@2100 KOURTNEY Administration Insulin Glargine 38 unit 05/13/25 09:00 05/14/25 09:36 Insulin Glargine (Lantus) 5 Unit/0.05 Ml (Per 5 Units) SC 06/12/25 08:59 38 unit QDAY KOURTNEY Administration Insulin Human Lispro 0 unit 05/12/25 18:00 05/15/25 05:44 Insulin Lispro (Admelog) 1 Unit/0.01 Ml Unit SC 06/11/25 17:59 Not Given Q6HR KOURTNEY Protocol Lansoprazole 30 mg 05/05/25 09:00 05/14/25 09:43 Lansoprazole 30 Mg Tab.Rap. GT 06/04/25 08:59 30 mg QDAY KOURTNEY Administration Pharmacy Consult 1 each 04/24/25 08:43 Pharmacy Renal Dose Adjustment 1 Ea XX 05/24/25 08:42 PRN PRN CONSULT Pharmacy Consult 1 each 05/14/25 08:22 Pharmacy Renal Dose Adjustment 1 Ea XX 06/13/25 08:21 PRN PRN CONSULT Sennosides 2 tab 05/02/25 09:00 05/14/25 09:37 Senna Tablet GT 06/01/25 08:59 2 tab QDAY KOURTNEY Administration Protocol Sodium Hypochlorite 473 ml 05/06/25 21:00 05/14/25 22:03 Sod Hypochlorite 1/4 Str 473 Ml Btl IRRIG 06/05/25 20:59 1 applicatio BID KOURTNEY Administration Zinc Sulfate 220 mg 04/18/25 09:00 05/14/25 09:36 Zinc Sulfate 220 Mg Capsule GT 05/18/25 08:59 220 mg QDAY OKURTNEY Administration Plan Patient is a 64-year-old male with past medical history of DM2, hypertension, A-fib, and Jehova's witness was initially admitted to the ICU on 02/27/2025 for shock and acute on chronic hypoxic respiratory failure. Patient has been s/p tracheostomy. Patient was sent to [facility] 04/09 for laparoscopic J-tube placement as patient required bariatric surgery service, received back to [facility] on 04/13. On 05/09, patient was upgraded to ICU due to bradycardia requiring transcutaneous pacing. He was briefly placed on dopamine drip, and went into unstable fib with RvR requiring cardioversion x1. Was then placed on phenylephrine drip. Patient received bronchoscopy which showed mucous plugging, currently on Zosyn and Levofloxacin. He was subsequently downgraded to telemetry since 05/11. #Acute on Chronic Respiratory Failure secondary to mucous plug #Healthcare-Associated Pneumonia #Leukocytosis Patient noted to have acute on chronic respiratory failure, required bronchoscopy w/ mucous plugs removed. Previous sputum Pseudomnas (04/03/2025) 05/09/2025 Bronchial washing culture grew pseudomonas, sensitive to Zosyn Vancomycin (05/09/2025-05/12/25) and doxycycline (05/12-05/13) were discontinued due to nephrotoxicity Of note, patient has history of Pseudomonnas infection Plan: -Continue Zosyn (05/09/2025- ) -Continue Levofloxacin 750 mg every 48 hrs due to concern for aspiration PNA (05/14/25- -Blow-by during the day, mechanical ventilation at night as needed at baseline, currently on mechanical ventilation -DuoNeb, Mucomyst and chest physiotherapy scheduled #Paroxysmal atrial fibrillation Per cardiology there is a concern of heart block, tachybradycardia syndrome as well. [id number] score of 3 points indicating 3.2% risk of stroke per year HAS-BLED: 3. High risk of major bleeding 05/13: Discussed with mechanical applications engineer?will start on amiodarone previous dose, 200 mg daily. Per cardiology patient is a poor candidate for pacemaker placement, patient was informed at bedside by cardiology team. He verbalized understanding. Plan: - Continue p.o. amiodarone. - Cardiology consulted, appreciate recommendations - Patient will need anticoagulation, however has low hemoglobin, bleeding wound will defer anticoagulation for now. #Congestive heart failure, HFpEF 65% #Diastolic dysfunction, grade 3 #Pulmonary hypertension #Right heart failure #BASIA/OHS #Moderate to severe a AOV calcification with no stenosis Patient has a past medical history of right heart faillure, Diastolic dysfucntion, and HFpEF 65% likely in the setting of cardiomypoathy seconadary to morbid obesity form BASIA/OHS. Given Cxr noted with prominent vascular congestion, consider repeat BNP, although hemodynamically unstable given pressors but may consider. No pheriphearl edema noted. Cxr (05/09/2025): Mild Heart Failure, Prominent vascular congestion and Moderate to large right pleural effusion Echo (04/29/2025): Normal LV size and function. Estimated EF of 65%. Grade III Diastolic Dysfunction.Right ventricle is dilated with mild RV dysfunction RVSP 47mmHg. RAP 15mmHg.Severe biatrial dilation.Moderate to Severe AOV calcification with no stenosis <ild tricuspid regurgitation. No pericardial effusion. Plan -Will hold Bumex today given worsening creatinine, consider resuming based on presentation tomorrow -Recommended patient to sit up in bed to help relieve IVC pressure -Cardiology consulted -Patient 1500 cc/day fluid restriction, daily weights, tube feeds resumed -K >4 and Mg >2 #Acute kidney injury-suspicion of ischemic ATN, resolved #Fluid overload #Acute on chronic hypoxic respiratory failure, improving. Patient looks clinically hypervolemic at this time 04/20 ? Attempt was made to place Fuller catheter however unable to pass catheter due to significant resistance and attempt was terminated. Discussed with nursing about possibility of weighing briefs daily. Patient had temporary hemodialysis catheter placed 04/24, receiving dialysis had 1 L removed on 04/24, 2 L on 04/25, 2.14 on 04/26, 2.1 L on 04/29; temporary dialysis catheter discontinued on 05/06 Patient being followed by nephrology, nephrology agrees with diuresis for now, will need close monitoring, poor candidate for dialysis due to body habitus and also has chronic anemia with wound bleeding from sacral region-channel development director did discuss with patient in detail, he verbalizes understanding. Plan: -Will hold Bumex today as above -Nephrology consulted, consider restarting on dialysis if creatinine does not improve off bumex -Antibiotics as above -Monitor I&O's -Avoid nephrotoxic agents -Renally dose medication #Decubitus ulcer status post excisional debridement of sacral decubitus ulcer Recent debridement of large decubitus ulcer on 05/02/2025 likely secondary to morbid obestiy and lack of mobility. 04/29: excisional debridement of sacral decubitus ulcer, washout and placement of wound VAC. 05/02: Patient had significant bleeding overnight, wound VAC leaked. Hemoglobin stable this morning, patient's bleeding from wound overnight was controlled with suture ligation. Wound was assessed by general surgeon, patient was transitioned back to red dry dressings daily. plan -General Surgery consulted, wound care per general surgery recommendations #Jejunostomy tube #Abdominal abscess - resolved Patient report said that there was an intra-abdominal abscess that have could have been from a perforated ulcer in the past See also note reviewed, mentions that patient likely had a marginal ulcer, but also was not seen on EGD without, currently patient has no abdominal tenderness and is totally asymptomatic. No current drain at this time Patient is status post laparoscopic J-tube placement and is currently on feeds Patient will continue to have this tube and will likely go to a long-term care facility with this until patient can swallow safely Plan: ? Monitor vitals closely #Normocytic normochromic anemia Multifactorial. Patient's baseline hemoglobin throughout the hospitalization has been in the range 9?11, patient did have some bleeding from wound VAC site on 05/02 which was controlled by suture ligation by general surgery. Had recurrent bleeding and eventually heparin drip was held. Patient has been receiving erythropoietin and ferumoxytol to improve underlying anemia - Patient is a [employer], denies any blood transfusion/blood products - Will repeat CBC as needed #Right internal jugular venous thrombosis #Right arm swelling Continuing free water flushes, patient has gone multiple days of heparin drip since 04/01 Right upper extremity ultrasound May 04-shows right IJ thrombus Plan: ? Continue to hold heparin drip due to recurrent sacral ulcer bleeding #Morbid obesity #DM2 A1C 7.6 on 03/05/2025 Patient has a BMI of 79.5->68.7 Attempted to prescribe tirzepatide to outside pharmacy to bring inpatient however no one is able to pick it up for the patient. Plan: - ISS scale 2 - Hypoglycemia protocol - 38 units of Lantus. Health Maintenance Disposition: Telemetry DVT prophylaxis: None, patient is [employer] and has a bleeding sacral wound GI prophylaxis: Protonix Diet: 2Cal Tube Feeds with 30 cc/hour water flush CODE STATUS: Full code Patient plan of care was discussed with senior Dr. Tobar and the attending physician, Dr. Turcios. Meena Dutta PGY-1 Attending Provider Attestation/Addendum I have discussed and was present for the essential components of the history, physical examination, diagnosis, and treatment plan with the resident. I agree with the patient's care as documented by the resident and amended herein by me. Arnol Turcios DO. Although this document has been carefully reviewed, there may still be some phonetic and other typographical errors. These errors are purely grammatical due to imperfections in the software program and should not be construed in any way to compromise the substance of the patient's medical care during this visit.
[2025-05-15] MEDS: ASCORBIC ACID 250 MG TABLET 500 MG GT ×2 (08:46→22:16)
[2025-05-15] MEDS: AMIODARONE HCL 200 MG TABLET GT (08:47)
[2025-05-15] MEDS: LANSOPRAZOLE 30 MG TAB.RAP.DR GT (08:48)
[2025-05-15] MEDS: ZINC SULFATE 220 MG CAPSULE GT (08:48)
[2025-05-15] MEDS: INSULIN GLARGINE (Lantus) 5 UNIT/0.05 ML (PER 5 UNITS) 38 UNIT SC (08:49)
--- NOTE | 2025-05-15 09:13 | PC.SS ---
Follow up note: WBC count pending. Pt is possible d/c to LTAC. [facility] is unable to accept.
--- NOTE | 2025-05-15 12:20 | PC.SS ---
Addendum entered by Janessa Ramírez 05/15/25 15:48: Pt is requiring 2 IV antibiotics until 05-18-25, IV Zosen 4.5 mg Q8 hours (every 8 hours) and IV Levofloxac 750 mg every other day. Original Note: SS has sent updated information using [facility] for subacute placement. SS received call from Yazmin at [facility], phone# [phone] who explained they are a subacute and can accept pt in the [facility]. Yazmin is aware pt has share of cost Medical Health Insurance and they will transition pt to their Medical Health Insurance. Yazmin explained they require FADI from [employer], patient's health insurance. EDUARDO has met with pt to inform him and he is agreeable. [facility] has also accepted pt. SS spoke to Sharon from [facility] and they are full. Izzy from [facility] in [place] ([facility]) is unable to accept [place] or [facility] and can accept [employer]. [facility] have declined 39 Subacute have declined from [facility]
--- NOTE | 2025-05-15 18:26 | ESPR_ITS ---
Documentation for date of: 05/15/25 Subjective Subjective Interval history: Overnight events: No acute events overnight. Patient was seen and examined at bedside. AM vitals and labs reviewed. BUN, Cr, and eGFR stable, but continues to be elevated from normal. The patient continues to be non-verbal with trach tube in place, but is able to respond to simple yes or no questions. Discussed with the patient concerns about his kidney function and the potential need to perform dialysis if his BUN, Cr, and eGFR remain at his current level. The patient reiterated that he does not want hemodialysis, but would be willing to consider it as a last resort if his condition deteriorates. The patient denied any other concerns at this time. Review of systems otherwise negative except for what is mentioned above. Exam Vital Signs Temp Pulse Resp BP Pulse Ox O2 Del Method O2 Flow Rate 97.1 F 86 19 97/76 98 Mechanical Ventilation 10 05/15/25 17:00 05/15/25 17:00 05/15/25 17:00 05/15/25 17:00 05/15/25 17:00 05/15/25 17:00 05/11/25 14:41 FiO2 50 05/15/25 11:45 Narrative Exam Physical Exam: General: Alert, no acute distress. Skin: Warm, dry, intact, no obvious rash. Head: Normocephalic, atraumatic. Eye: Normal conjunctiva, PERRL. Cardiovascular: Could not appreciate heart sounds due to body habitus. Respiratory: Lungs are clear to auscultation in upper lobes, respirations unlabored, no crackles, no wheezing. Could not appreciate lower lobe lung sounds due to body habitus. Gastrointestinal: Soft, nontender, non-distended. No guarding or rebound tenderness. Extremities: 1+ edema in BLE, no cyanosis, no clubbing. 2+ radial pulse bilaterally. Neuro: No focal deficits observed. Conversant, moving all extremities. No overt cerebellar signs/incoordination. Psychiatric: Cooperative, appropriate affect. Objective Labs 05/16/25 05:10 05/16/25 05:10 Labs: Laboratory Results - last 24 hr 05/15/25 05:21 WBC 22.4 H RBC 2.41 L Hgb 7.1 L Hct 22.6 L MCV 94 MCH 29.5 MCHC 31.4 RDW Std Deviation 60.6 H Plt Count 417 D Neut % (Auto) 71 Lymph % (Auto) 19 Warren % (Auto) 7 Eos % (Auto) 2 Baso % (Auto) 0 Neut # (Auto) 15.8 H Lymph # (Auto) 4.2 Warren # (Auto) 1.5 H Eos # (Auto) 0.4 Baso # (Auto) 0.1 Immature Gran # (Auto) 0.39 H Absolute Nucleated RBC 0.00 Immature Gran % 2 H Nucleated RBC % 0 Sodium 141 Potassium 4.5 Chloride 101 Carbon Dioxide 27.4 Anion Gap 13 BUN 116 H* Creatinine 3.9 H Estim Creat Clear Calc 31.2 L eGFR 16 L BUN/Creatinine Ratio 30 H Glucose 150 H Calculated Osmolality 321 H Calcium 8.8 Corrected Calcium 9.4 Phosphorus 4.8 Magnesium 2.6 Total Bilirubin 0.4 AST 36 H ALT 22 Alkaline Phosphatase 284 H D B-Natriuretic Peptide 554 H* Total Protein 6.2 Albumin 3.2 L Globulin 3.0 Albumin/Globulin Ratio 1.1 L ABG Interpretation ABG results: 04/18/25 04/18/25 04/18/25 04:40 06:27 10:30 ABG pH 7.28 L 7.33 L 7.36 ABG pCO2 72 H* 67 H 61 H ABG pO2 132 H 60 L D 60 L ABG HCO3 34 H 35 H 34 H ABG O2 Saturation 100 H 93 93 ABG Base Excess 6 H 7 H 8 H 04/19/25 05/10/25 08:53 07:40 ABG pH 7.47 H D 7.52 H ABG pCO2 45 D 40 ABG pO2 66 L 60 L ABG HCO3 33 H 32 H ABG O2 Saturation 96 94 ABG Base Excess 8 H 8 H Quality Measures Quality Measures VTE therapy Advance care planning discussed with:: patient Assessment & Plan Assessment Current Active Medications: Generic Name Dose Route Start Last Admin Trade Name Freq PRN Reason Stop Dose Admin Acetaminophen 650 mg 05/01/25 08:47 05/14/25 19:52 Acetaminophen 325 Mg Tablet PO 05/22/25 20:42 650 mg Q6HR PRN Administration pain 1-3 OR Fever >100.4 Acetylcysteine 3 ml 05/10/25 15:00 05/15/25 07:40 Acetylcysteine Rt Gloria 10% 4 Ml Nebu INH 06/09/25 14:59 3 ml Q8HRRT KOURTNEY Administration Albuterol/Ipratropium 3 ml 05/10/25 15:00 05/15/25 07:40 Albuterol/Ipratropium (Duoneb) Rt Gloria 3 Ml Nebu INH 06/09/25 14:59 3 ml Q8HRRT KOURTNEY Administration Amiodarone HCl 200 mg 05/12/25 13:45 05/15/25 08:47 Amiodarone Hcl 200 Mg Tablet GT 06/11/25 13:44 200 mg QDAY KOURTNEY Administration Ascorbic Acid 500 mg 04/17/25 21:00 05/15/25 08:46 Ascorbic Acid 250 Mg Tablet GT 05/17/25 20:59 500 mg BID KOURTNEY Administration Bumetanide 1 mg 05/12/25 10:00 05/15/25 05:41 Bumetanide Inj 0.25 Mg/Ml Vial 4 Ml IVP 06/11/25 09:59 1 mg BIDD KOURTNEY Administration Dextrose 25 ml 05/12/25 13:47 Dextrose 50%-Water Inj 50 Ml Syringe IV 06/11/25 13:46 Q15MIN PRN BG 50-70 responsive npo pt Dextrose 50 ml 05/12/25 13:48 Dextrose 50%-Water Inj 50 Ml Syringe IV 06/11/25 13:47 Q15MIN PRN BG <50 OR BG <70 & pt unresponsive Gabapentin 100 mg 05/11/25 14:05 05/15/25 13:18 Gabapentin 100 Mg Capsule PO 06/10/25 14:04 100 mg TID KOURTNEY Administration Glucagon 1 mg 05/12/25 13:49 Glucagon Inj 1 Mg Vial IM 06/11/25 13:48 Q15MIN PRN BG <70, and no IV access Albumin Human 25 gm in 100 mls @ 100 mls/min 04/24/25 11:52 Albuminar-25 Ivpb IV PRN PRN DIALYSIS Piperacillin Sod/Tazobactam 100 mls @ 25 mls/hr 05/09/25 13:03 05/15/25 13:18 Sod 4.5 gm/ Sodium Chloride IV 05/16/25 13:02 25 mls/hr Q8HR KOURTNEY Administration Protocol Levofloxacin/Dextrose 750 mg in 150 mls @ 100 mls/hr 05/14/25 21:00 05/14/25 22:02 Levaquin Ivpb IV 05/21/25 20:59 100 mls/hr Q48HR@2100 KOURTNEY Administration Insulin Glargine 38 unit 05/13/25 09:00 05/15/25 08:49 Insulin Glargine (Lantus) 5 Unit/0.05 Ml (Per 5 Units) SC 06/12/25 08:59 38 unit QDAY KOURTNEY Administration Insulin Human Lispro 0 unit 05/12/25 18:00 05/15/25 13:14 Insulin Lispro (Admelog) 1 Unit/0.01 Ml Unit SC 06/11/25 17:59 Not Given Q6HR KOURTNEY Protocol Lansoprazole 30 mg 05/05/25 09:00 05/15/25 08:48 Lansoprazole 30 Mg Tab.Rap. GT 06/04/25 08:59 30 mg QDAY KOURTNEY Administration Pharmacy Consult 1 each 04/24/25 08:43 Pharmacy Renal Dose Adjustment 1 Ea XX 05/24/25 08:42 PRN PRN CONSULT Pharmacy Consult 1 each 05/14/25 08:22 Pharmacy Renal Dose Adjustment 1 Ea XX 06/13/25 08:21 PRN PRN CONSULT Sennosides 2 tab 05/02/25 09:00 05/15/25 08:48 Senna Tablet GT 06/01/25 08:59 2 tab QDAY KOURTNEY Administration Protocol Sodium Hypochlorite 473 ml 05/06/25 21:00 05/14/25 22:03 Sod Hypochlorite 1/4 Str 473 Ml Btl IRRIG 06/05/25 20:59 1 applicatio BID KOURTNEY Administration Zinc Sulfate 220 mg 04/18/25 09:00 05/15/25 08:48 Zinc Sulfate 220 Mg Capsule GT 05/18/25 08:59 220 mg QDAY KOURTNEY Administration Plan Mr. Ortega is a 64 year old gentleman with a relevant medical history of A-fib, T2DM, HTN, severe right-sided heart failure, s/p tracheostomy, and Jehova's Witness, who was admitted to [facility] ICU for shock and acute on chronic hypoxic respiratory failure. Nephrology was consulted due to worsening renal function. #Acute kidney injury due to suspected ATN 2/2 CHF and shock Elevated Cr & BUN, decreased eGFR, in setting of shock that can decrease bloodflow to kidneys, resulting in ATN. Lab values continue to be out of normal range. - Continue to monitor kidney function as patient's current H&H status makes safe hemodialysis difficut. - Discussed with patient the need to perform hemodialysis due to continued elevated Cr & BUN, and decreased eGFR. Patient still does not want hemodialysis, but is willing to consider it as a last resort. - Continue diuresis. - Nephrology will continue to follow. Patient was discussed with the Nephrology attending, Dr. Minor. Thank you for allowing us to participate in the care of this patient. Ollie Sandhu, PGY-1 Attending Provider Attestation/Addendum Pt is seen and examined. labs reviewed. notes reviewed. agree with assessment and plan and findings of resident. Clarence Minor MD
--- NOTE | 2025-05-15 21:49 | ESPR_ITS ---
<Statement entered by Lenora John MD - 05/18/25 18:33> I personally evaluated the patient examined with resident physician Dr. Kirk Ahuamda agree with the treatment plan recommendation as documented continue amiodarone for A-fib patient may require dialysis. Documentation for date of: 05/15/25 Subjective Subjective Interval history: Patient is seen and examined at bedside No acute overnight events. Patient is still on mechanical ventilator on VAC mode, PEEP 8, FiO2 50% Patient is able to communicate effectively with the help of writing and trying to talk Vitals are stable. On physical examination, bilateral breath sounds are clear but decreased in view of body habitus. Patient appears euvolemic Patient is receiving feeds through G-tube, 42 mL/h with 70 mL flushes every hour Urinary output is measured by bearing the weight of diaper. 24-hour urine output is 816 mL Labs done today showed rising BUN and creatinine Telemetry reviewed and patient is still in atrial fibrillation with controlled ventricular rate Recommended to hold diuresis for now as patient appears euvolemic and in view of rising BUN and creatinine Recommended to continue amiodarone 200 Mg through G-tube Look for QT prolongation as patient is on amiodarone and levofloxacin Anticoagulation cannot be started in view of large decubitus ulcer with risk of bleeding. Exam Vital Signs Temp Pulse Resp BP Pulse Ox O2 Del Method O2 Flow Rate 97.1 F 106 H 19 97/76 100 Mechanical Ventilation 10 05/15/25 17:00 05/15/25 19:43 05/15/25 17:00 05/15/25 17:00 05/15/25 19:43 05/15/25 17:00 05/11/25 14:41 FiO2 50 05/15/25 19:43 Narrative Exam General: Awake. obese HEENT: Normocephalic, atraumatic, mucous membranes moist. Heart: IRRegular rate and rhythm, no murmurs. Lungs: Clear to auscultation with no wheezing or crackles. But noted decreased breath sounds bilaterally in view of body habitus Abdomen: Soft, nondistended, nontender, positive bowel sounds. ?No guarding or rebound tenderness. Neurologic: Alert and oriented x3, no gross neurological deficit, and patient able to move all 4 extremities. Extremities: No edema. Skin: Large sacral ulcer in the gluteal region, Decubitus Grade III Objective Labs 05/16/25 05:10 05/16/25 05:10 Labs: Laboratory Results - last 24 hr 05/15/25 05:21 WBC 22.4 H RBC 2.41 L Hgb 7.1 L Hct 22.6 L MCV 94 MCH 29.5 MCHC 31.4 RDW Std Deviation 60.6 H Plt Count 417 D Neut % (Auto) 71 Lymph % (Auto) 19 Tate % (Auto) 7 Eos % (Auto) 2 Baso % (Auto) 0 Neut # (Auto) 15.8 H Lymph # (Auto) 4.2 Tate # (Auto) 1.5 H Eos # (Auto) 0.4 Baso # (Auto) 0.1 Immature Gran # (Auto) 0.39 H Absolute Nucleated RBC 0.00 Immature Gran % 2 H Nucleated RBC % 0 Sodium 141 Potassium 4.5 Chloride 101 Carbon Dioxide 27.4 Anion Gap 13 BUN 116 H* Creatinine 3.9 H Estim Creat Clear Calc 31.2 L eGFR 16 L BUN/Creatinine Ratio 30 H Glucose 150 H Calculated Osmolality 321 H Calcium 8.8 Corrected Calcium 9.4 Phosphorus 4.8 Magnesium 2.6 Total Bilirubin 0.4 AST 36 H ALT 22 Alkaline Phosphatase 284 H D B-Natriuretic Peptide 554 H* Total Protein 6.2 Albumin 3.2 L Globulin 3.0 Albumin/Globulin Ratio 1.1 L ABG Interpretation ABG results: 04/18/25 04/18/25 04/18/25 04:40 06:27 10:30 ABG pH 7.28 L 7.33 L 7.36 ABG pCO2 72 H* 67 H 61 H ABG pO2 132 H 60 L D 60 L ABG HCO3 34 H 35 H 34 H ABG O2 Saturation 100 H 93 93 ABG Base Excess 6 H 7 H 8 H 04/19/25 05/10/25 08:53 07:40 ABG pH 7.47 H D 7.52 H ABG pCO2 45 D 40 ABG pO2 66 L 60 L ABG HCO3 33 H 32 H ABG O2 Saturation 96 94 ABG Base Excess 8 H 8 H Quality Measures Quality Measures VTE therapy Advance care planning discussed with:: patient Assessment & Plan Assessment Current Active Medications: Generic Name Dose Route Start Last Admin Trade Name Freq PRN Reason Stop Dose Admin Acetaminophen 650 mg 05/01/25 08:47 05/14/25 19:52 Acetaminophen 325 Mg Tablet PO 05/22/25 20:42 650 mg Q6HR PRN Administration pain 1-3 OR Fever >100.4 Acetylcysteine 3 ml 05/10/25 15:00 05/15/25 07:40 Acetylcysteine Rt Gloria 10% 4 Ml Nebu INH 06/09/25 14:59 3 ml Q8HRRT KOURTNEY Administration Albuterol/Ipratropium 3 ml 05/10/25 15:00 05/15/25 07:40 Albuterol/Ipratropium (Duoneb) Rt Gloria 3 Ml Nebu INH 06/09/25 14:59 3 ml Q8HRRT KOURTNEY Administration Amiodarone HCl 200 mg 05/12/25 13:45 05/15/25 08:47 Amiodarone Hcl 200 Mg Tablet GT 06/11/25 13:44 200 mg QDAY KOURTNEY Administration Ascorbic Acid 500 mg 04/17/25 21:00 05/15/25 08:46 Ascorbic Acid 250 Mg Tablet GT 05/17/25 20:59 500 mg BID KOURTNEY Administration Bumetanide 1 mg 05/12/25 10:00 05/15/25 05:41 Bumetanide Inj 0.25 Mg/Ml Vial 4 Ml IVP 06/11/25 09:59 1 mg BIDD KOURTNEY Administration Dextrose 25 ml 05/12/25 13:47 Dextrose 50%-Water Inj 50 Ml Syringe IV 06/11/25 13:46 Q15MIN PRN BG 50-70 responsive npo pt Dextrose 50 ml 05/12/25 13:48 Dextrose 50%-Water Inj 50 Ml Syringe IV 06/11/25 13:47 Q15MIN PRN BG <50 OR BG <70 & pt unresponsive Gabapentin 100 mg 05/11/25 14:05 05/15/25 13:18 Gabapentin 100 Mg Capsule PO 06/10/25 14:04 100 mg TID KOURTNEY Administration Glucagon 1 mg 05/12/25 13:49 Glucagon Inj 1 Mg Vial IM 06/11/25 13:48 Q15MIN PRN BG <70, and no IV access Albumin Human 25 gm in 100 mls @ 100 mls/min 04/24/25 11:52 Albuminar-25 Ivpb IV PRN PRN DIALYSIS Piperacillin Sod/Tazobactam 100 mls @ 25 mls/hr 05/09/25 13:03 05/15/25 13:18 Sod 4.5 gm/ Sodium Chloride IV 05/16/25 13:02 25 mls/hr Q8HR KOURTNEY Administration Protocol Levofloxacin/Dextrose 750 mg in 150 mls @ 100 mls/hr 05/14/25 21:00 05/14/25 22:02 Levaquin Ivpb IV 05/21/25 20:59 100 mls/hr Q48HR@2100 KOURTNEY Administration Insulin Glargine 38 unit 05/13/25 09:00 05/15/25 08:49 Insulin Glargine (Lantus) 5 Unit/0.05 Ml (Per 5 Units) SC 06/12/25 08:59 38 unit QDAY KOURTNEY Administration Insulin Human Lispro 0 unit 05/12/25 18:00 05/15/25 13:14 Insulin Lispro (Admelog) 1 Unit/0.01 Ml Unit SC 06/11/25 17:59 Not Given Q6HR KOURTNEY Protocol Lansoprazole 30 mg 05/05/25 09:00 05/15/25 08:48 Lansoprazole 30 Mg Tab.Joshua. GT 06/04/25 08:59 30 mg QDAY KOURTNEY Administration Pharmacy Consult 1 each 04/24/25 08:43 Pharmacy Renal Dose Adjustment 1 Ea XX 05/24/25 08:42 PRN PRN CONSULT Pharmacy Consult 1 each 05/14/25 08:22 Pharmacy Renal Dose Adjustment 1 Ea XX 06/13/25 08:21 PRN PRN CONSULT Sennosides 2 tab 05/02/25 09:00 05/15/25 08:48 Senna Tablet GT 06/01/25 08:59 2 tab QDAY KOURTNEY Administration Protocol Sodium Hypochlorite 473 ml 05/06/25 21:00 05/14/25 22:03 Sod Hypochlorite 1/4 Str 473 Ml Btl IRRIG 06/05/25 20:59 1 applicatio BID KOURTNEY Administration Zinc Sulfate 220 mg 04/18/25 09:00 05/15/25 08:48 Zinc Sulfate 220 Mg Capsule GT 05/18/25 08:59 220 mg QDAY KOURTNEY Administration Plan 64-year-old male, [place] with a past medical history of hypertension, diabetes mellitus type 2, history of atrial fibrillation, CHF HFpEF 65%, grade 3 diastolic dysfunction, right heart failure, RSVP 47, moderate to severe ALB calsifications with no stenosis, status post tracheostomy, s/p PEG Tube at [facility], bariatric team, history of dyspahagia, extensive decubitus ulcers, CKD, history of anemia, history of Diego-en- Y gastric bypass, BASIA/OHS, and morbid obesity. Patient was upgraded to ICU for a third time with in acute respiratory respiratory failure secondary to mucous plug and shock, likely cardiogenic shock secondary to complete heart block requiring pressors and downgraded again # A-fib with RVR - s/p cardioversion ---> CVR # Bradycardia and questionable complete heart block, resolved - Patient was hypoxic and was transferred to the ICU on 05/09/2025. - Cardiology was consulted 05/09/2025 for significant bradycardia requiring external temporary transcutaneous pacing. - Plan was to place a temporary transvenous pacemaker if the patient continues to be bradycardic as he was 100% dependent on the transcutaneous pacing. - Bronchoscopy was performed which showed small mucous plug which was removed and patient rhythm was back to his atrial fibrillation with RVR. - Patient was on dopamine at that point of time. Patient blood pressure was on the lower side and was unstable and required cardioversion x 1. - Patient was on levophed and phenylephrine for a short period of time. - Patient is presently ventilator dependent and has a tracheostomy in place along with a jejunostomy. Plan - Recommend to continue telemetry monitoring - In view of ongoing sacral ulcer with recurrent infections, pacemaker placement cannot be done. But fortunately patient did not have any further episodes of bradycardia. So no need of pacemaker placement as of now - Recommended to continue amiodarone 200 Mg G-tube once daily - As patient had large decubitus ulcer and has tendency to bleed, anticoagulation is held for now # H/O CHF, HFpEF 65% #Diastolic dysfunction, grade 3 #Pulmonary hypertension #BASIA/OHS #Moderate to severe a AOV calcification with no stenosis #Moderate Right Pleural Effusion - Patient has a past medical history of right heart faillure, Diastolic dysfucntion, and HFpEF 65% likely in the setting of cardiomypoathy seconadary to morbid obesity form BASIA/OHS. - [place] [facility] 03/19/2025: RAP 8, PAP 27, PCWP 7. - Echo (04/29/2025): Normal LV size and function. Estimated EF of 65%. Grade III Diastolic Dysfunction.Right ventricle is dilated with mild RV dysfunction RVSP 47mmHg. RAP 15mmHg.Severe biatrial dilation.Moderate to Severe AOV calcification with no stenosis <ild tricuspid regurgitation. No pericardial effusion. - Echo (05/14/2025) : Normal LV size and function. Estimated EF is 55 to 60%. Severely RA dilated right ventricle as well as right atrium. IVS flattening noted both in systole and diastole indicating both pressure and volume overlo Plan -Recommended to hold diuresis for now in view of uptrending BUN and creatinine -Consider fluid restrictions given pleural effusion -K >4 and Mg >2 #Acute on Chronic Respiratory Failure secondary to mucus plug #Healthcare-Associated Pneumonia #Leukocytosis #Large Sacral Decubitus Ulcer s/p excisional debridement (05/02/2025) #CKD stage III #Jejunostomy #History of abdominal abscess s/p percutaneous drainage #Diabetes Mellitus Type 2 non insulin depedent #Normocytic Anemia Management of rest of the medical conditions as per primary team and other consultants. Thank you for the consult and allowing us to participate in the care of the patient. Cardiology will continue to follow. Patient plan of care was discussed with [employer] Riveter, Dr. Alvaro Ahumada, PGY2
[2025-05-15] MEDS: SOD HYPOCHLORITE 1/4 STR 473 ML BTL IRRIG (22:23)
[2025-05-16] VITALS (14 sets, daily range): BP systolic 95–113; BP diastolic 55–83; PULSE 80–103; RESP 18–25; TEMP 36.4–37.2; O2SAT 96–99; BMI 67.8
[2025-05-16 05:59] LABS: Basophils # (Auto) 0.1 Thou/mm3 (0.0-0.2); Basophils % (Auto) 0 % (0-2.5); Eosinophils # (Auto) 0.5 Thou/mm3 (0.0-0.5); Eosinophils % (Auto) 3 % (0-10); Hematocrit 21.9 % (41.0-53.0); Immature Granulocytes Auto 0.28 Thou/mm3 (0.00-0.00); Lymphocytes # (Auto) 4.3 Thou/mm3 (1.0-4.8); Lymphocytes % (Auto) 21 % (10-50); Mean Corpuscular HGB Conc 32.0 g/dl (31.0-37.0); Mean Corpuscular Hemoglobin 29.2 pg (25.0-35.0); Mean Corpuscular Volume 91 fL (80-100); Monocytes # (Auto) 1.6 Thou/mm3 (0.0-0.8); Monocytes % (Auto) 8 % (0-12); Neutrophils # (Auto) 14.0 Thou/mm3 (1.8-7.7); Neutrophils % (Auto) 68 % (37-80); Nucleated Red Blood Cell # 0.00 Thou/mm3 (0.00-0.00); Nucleated Red Blood Cell % 0 /100 WBC (0); Platelet Count 399 Thou/mm3 (140-440); RDW Standard Deviation 58.4 fL (35.1-43.9); Red Blood Count 2.40 Miln/mm3 (4.50-5.90); White Blood Count 20.7 Thou/mm3 (3.8-10.6)
[2025-05-16 06:04] LABS: Hemoglobin 7.0 g/dL (13.5-16.0)
[2025-05-16] MEDS: PIPER/TAZO INJ 4.5 GM in SODIUM CHLORIDE 0.9% (POP) 100 ML IV (06:34)
[2025-05-16] MEDS: GABAPENTIN 100 MG CAPSULE PO ×3 (06:34→21:02)
[2025-05-16] MEDS: INSULIN LISPRO (AdmeLOG) 1 UNIT/0.01 ML UNIT SC ×2 (06:35→12:25)
[2025-05-16 06:48] LABS: Alanine Aminotransferase 17 U/L (10-49); Albumin, Serum 3.2 gm/dL (3.4-4.8); Albumin/Globulin Ratio 1.1 (1.2-2.2); Alkaline Phosphatase 266 U/L (46-116); Anion Gap 11 (7-16); Aspartate Amino Transferase 25 U/L (0-34); BUN/Creatinine Ratio 27 Ratio (12-20); Bilirubin,Total 0.3 mg/dL (0.3-1.2); Calcium 9.0 mg/dL (8.3-10.6); Calcium (Corrected) 9.6 mg/dL (8.5-10.1); Carbon Dioxide 26.4 mMol/L (20.0-31.0); Chloride 103 mMol/L (98-107); Creatinine (Component) 4.1 mg/dL (0.6-1.3); Estimated Creatinine Clearance 29.6 mL/min (>60); Globulin 3.0 gm/dL (2.3-3.5); Glucose 165 mg/dL (74-106); Magnesium 2.7 mg/dL (1.6-2.6); Osmolality,Calculated 318 (275-295); Phosphorous 5.6 mg/dL (2.4-5.1); Potassium 4.9 mMol/L (3.4-5.1); Sodium 140 mMol/L (136-145); Total Protein 6.2 gm/dL (5.7-8.2); eGFR 15 See Note
[2025-05-16 06:50] LABS: Blood Urea Nitrogen 112 mg/dL (9-23)
[2025-05-16] MEDS: ACETYLCYSTEINE RT SOL 10% 4 ML NEBU 3 ML INH ×4 (07:43→22:57)
[2025-05-16] MEDS: ALBUTEROL/IPRATROPIUM (Duoneb) RT SOL 3 ML NEBU INH ×4 (07:43→22:57)
--- NOTE | 2025-05-16 09:11 | PD.RESPRO ---
Documentation for date of: 05/16/25 Subjective Subjective Interval history: No acute events overnight. Patient seen and examined at bedside this AM. Still tolerating mechanical ventilation via trach collar. Writes on white board for communication. Labs and vitals were reviewed. Creatinine continues to trend upward. Phosphorus and magnesium were also elevated. Will continue to hold Bumex per nephrology recommendation. Discussed need for hemodialysis in the near future, patient was agreeable. Continue IV Zosyn and Levofloxacin (day 2). No further complaints at this time. Pending discharge to LTAC. Review of systems otherwise negative except what is mentioned above. Exam Vital Signs Temp Pulse Resp BP Pulse Ox O2 Del Method O2 Flow Rate 97.8 F 97 23 H 98/77 98 Mechanical Ventilation 10 05/16/25 05:00 05/16/25 07:44 05/16/25 07:44 05/16/25 05:00 05/16/25 07:44 05/16/25 05:00 05/11/25 14:41 FiO2 50 05/16/25 07:44 Narrative Exam Constitutional: Alert, oriented x 3 and no acute distress. Nods and expresses self to questions, writes on white board for communication. Elderly male, morbidly obese. HEENT: Vision grossly intact. Patent nares. Trachea midline. Tracheostomy tube in situ, exit site clean. Respiratory: Chest normal on inspection and decreased air entry in all lung sims, transmitted sounds and congestion on anterior chest wall, middle and upper lobes. Cardiovascular: S1 and S2 audible, RRR. No murmurs carotid bruit. No gross JVD. Abdominal: Soft, obese and non tender to palpation in all quadrants. BS +. Jejunostomy tube in situ, exit site clean Genitourinary: No bladder tenderness, no flank pain. Normal to palpation Musculoskeletal: Extremities tone within normal limits. Mild edema in right upper extremity, improved upon placing on pillow. No lower extremity edema bilaterally. Neurological: CN II - XII grossly intact. Extremity motor and sensation grossly intact. Skin: Warm, dry and intact. Large sacral decubitus ulcer, necrotic tissue noted. Cleanly packed with dressings. Psychiatric: Patient has good affect, is cooperative Objective Labs 05/16/25 05:10 05/16/25 05:10 Labs: Laboratory Results - last 24 hr 05/16/25 05:10 WBC 20.7 H RBC 2.40 L Hgb 7.0 L Hct 21.9 L* MCV 91 MCH 29.2 MCHC 32.0 RDW Std Deviation 58.4 H Plt Count 399 Neut % (Auto) 68 Lymph % (Auto) 21 [place] % (Auto) 8 Eos % (Auto) 3 Baso % (Auto) 0 Neut # (Auto) 14.0 H Lymph # (Auto) 4.3 [place] # (Auto) 1.6 H Eos # (Auto) 0.5 Baso # (Auto) 0.1 Immature Gran # (Auto) 0.28 H Absolute Nucleated RBC 0.00 Immature Gran % 1 H Nucleated RBC % 0 Sodium 140 Potassium 4.9 Chloride 103 Carbon Dioxide 26.4 Anion Gap 11 BUN 112 H* Creatinine 4.1 H* Estim Creat Clear Calc 29.6 L eGFR 15 L BUN/Creatinine Ratio 27 H Glucose 165 H Calculated Osmolality 318 H Calcium 9.0 Corrected Calcium 9.6 Phosphorus 5.6 H Magnesium 2.7 H Total Bilirubin 0.3 AST 25 ALT 17 Alkaline Phosphatase 266 H Total Protein 6.2 Albumin 3.2 L Globulin 3.0 Albumin/Globulin Ratio 1.1 L ABG Interpretation ABG results: 04/18/25 04/18/25 04/18/25 04:40 06:27 10:30 ABG pH 7.28 L 7.33 L 7.36 ABG pCO2 72 H* 67 H 61 H ABG pO2 132 H 60 L D 60 L ABG HCO3 34 H 35 H 34 H ABG O2 Saturation 100 H 93 93 ABG Base Excess 6 H 7 H 8 H 04/19/25 05/10/25 08:53 07:40 ABG pH 7.47 H D 7.52 H ABG pCO2 45 D 40 ABG pO2 66 L 60 L ABG HCO3 33 H 32 H ABG O2 Saturation 96 94 ABG Base Excess 8 H 8 H Quality Measures Quality Measures VTE therapy Advance care planning discussed with:: patient Assessment & Plan Assessment Current Active Medications: Generic Name Dose Route Start Last Admin Trade Name Freq PRN Reason Stop Dose Admin Acetaminophen 650 mg 05/01/25 08:47 05/14/25 19:52 Acetaminophen 325 Mg Tablet PO 05/22/25 20:42 650 mg Q6HR PRN Administration pain 1-3 OR Fever >100.4 Acetylcysteine 3 ml 05/10/25 15:00 05/16/25 07:43 Acetylcysteine Rt Gloria 10% 4 Ml Nebu INH 06/09/25 14:59 3 ml Q8HRRT KOURTNEY Administration Albuterol/Ipratropium 3 ml 05/10/25 15:00 05/16/25 07:43 Albuterol/Ipratropium (Duoneb) Rt Gloria 3 Ml Nebu INH 06/09/25 14:59 3 ml Q8HRRT KOURTNEY Administration Amiodarone HCl 200 mg 05/12/25 13:45 05/15/25 08:47 Amiodarone Hcl 200 Mg Tablet GT 06/11/25 13:44 200 mg QDAY KOURTNEY Administration Ascorbic Acid 500 mg 04/17/25 21:00 05/15/25 22:16 Ascorbic Acid 250 Mg Tablet GT 05/17/25 20:59 500 mg BID KOURTNEY Administration Bumetanide 1 mg 05/12/25 10:00 05/15/25 05:41 Bumetanide Inj 0.25 Mg/Ml Vial 4 Ml IVP 06/11/25 09:59 1 mg BIDD KOURTNEY Administration Dextrose 25 ml 05/12/25 13:47 Dextrose 50%-Water Inj 50 Ml Syringe IV 06/11/25 13:46 Q15MIN PRN BG 50-70 responsive npo pt Dextrose 50 ml 05/12/25 13:48 Dextrose 50%-Water Inj 50 Ml Syringe IV 06/11/25 13:47 Q15MIN PRN BG <50 OR BG <70 & pt unresponsive Gabapentin 100 mg 05/11/25 14:05 05/16/25 06:34 Gabapentin 100 Mg Capsule PO 06/10/25 14:04 100 mg TID KOURTNEY Administration Glucagon 1 mg 05/12/25 13:49 Glucagon Inj 1 Mg Vial IM 06/11/25 13:48 Q15MIN PRN BG <70, and no IV access Albumin Human 25 gm in 100 mls @ 100 mls/min 04/24/25 11:52 Albuminar-25 Ivpb IV PRN PRN DIALYSIS Piperacillin Sod/Tazobactam 100 mls @ 25 mls/hr 05/09/25 13:03 05/16/25 06:34 Sod 4.5 gm/ Sodium Chloride IV 05/16/25 13:02 25 mls/hr Q8HR KOURTNEY Administration Protocol Levofloxacin/Dextrose 750 mg in 150 mls @ 100 mls/hr 05/14/25 21:00 05/14/25 22:02 Levaquin Ivpb IV 05/21/25 20:59 100 mls/hr Q48HR@2100 KOURTNEY Administration Insulin Glargine 38 unit 05/13/25 09:00 05/15/25 08:49 Insulin Glargine (Lantus) 5 Unit/0.05 Ml (Per 5 Units) SC 06/12/25 08:59 38 unit QDAY KOURTNEY Administration Insulin Human Lispro 0 unit 05/12/25 18:00 05/16/25 06:35 Insulin Lispro (Admelog) 1 Unit/0.01 Ml Unit SC 06/11/25 17:59 1 unit Q6HR KOURTNEY Administration Protocol Lansoprazole 30 mg 05/05/25 09:00 05/15/25 08:48 Lansoprazole 30 Mg Tab. GT 06/04/25 08:59 30 mg QDAY KOURTNEY Administration Pharmacy Consult 1 each 04/24/25 08:43 Pharmacy Renal Dose Adjustment 1 Ea XX 05/24/25 08:42 PRN PRN CONSULT Pharmacy Consult 1 each 05/14/25 08:22 Pharmacy Renal Dose Adjustment 1 Ea XX 06/13/25 08:21 PRN PRN CONSULT Sennosides 2 tab 05/02/25 09:00 05/15/25 08:48 Senna Tablet GT 06/01/25 08:59 2 tab QDAY KOURTNEY Administration Protocol Sodium Hypochlorite 473 ml 05/06/25 21:00 05/15/25 22:23 Sod Hypochlorite 1/4 Str 473 Ml Btl IRRIG 06/05/25 20:59 1 applicatio BID KOURTNEY Administration Zinc Sulfate 220 mg 04/18/25 09:00 05/15/25 08:48 Zinc Sulfate 220 Mg Capsule GT 05/18/25 08:59 220 mg QDAY KOURTNEY Administration Plan Patient is a 64-year-old male with past medical history of DM2, hypertension, A-fib, and Jehova's witness was initially admitted to the ICU on 02/27/2025 for shock and acute on chronic hypoxic respiratory failure. Patient has been s/p tracheostomy. Patient was sent to [facility] 04/09 for laparoscopic J-tube placement as patient required bariatric surgery service, received back to [facility] on 04/13. On 05/09, patient was upgraded to ICU due to bradycardia requiring transcutaneous pacing. He was briefly placed on dopamine drip, and went into unstable fib with RvR requiring cardioversion x1. Was then placed on phenylephrine drip. Patient received bronchoscopy which showed mucous plugging, currently on Zosyn and Levofloxacin. He was subsequently downgraded to telemetry since 05/11. Pending placement at LTAC. #Acute kidney injury-suspicion of ischemic ATN, resolved #Fluid overload #Acute on chronic hypoxic respiratory failure, improving. 04/20 ? Attempt was made to place Fuller catheter however unable to pass catheter due to significant resistance and attempt was terminated. Discussed with nursing about possibility of weighing briefs daily. Patient had temporary hemodialysis catheter placed 04/24, receiving dialysis had 1 L removed on 04/24, 2 L on 04/25, 2.14 on 04/26, 2.1 L on 04/29; temporary dialysis catheter discontinued on 05/06 Patient being followed by nephrology, nephrology agrees with diuresis for now, will need close monitoring, poor candidate for dialysis due to body habitus and also has chronic anemia with wound bleeding from sacral region-supervisor belt and link assembly did discuss with patient in detail, he verbalizes understanding. Bumex held on 05/15 due to worsening creatinine of 3.9, now 4.1. Due to lack of improvement despite diuretic holiday, discussed with patient today need for hemodialysis in the near future. Patient initially refused but after multiple attempts of counseling and explaining risks and benefits, including , patient was eventually agreeable. Plan: -Continue to hold Bumex -Nephrology consulted, appreciate recommendations -Consider restarting on hemodialysis if worsen -Antibiotics as above -Monitor I&O's -Avoid nephrotoxic agents -Renally dose medication #Acute on Chronic Respiratory Failure secondary to mucous plug #Healthcare-Associated Pneumonia #Leukocytosis Patient noted to have acute on chronic respiratory failure, required bronchoscopy w/ mucous plugs removed. Previous sputum Pseudomnas (04/03/2025) 05/09/2025 Bronchial washing culture grew pseudomonas, sensitive to Zosyn Vancomycin (05/09/2025-05/12/25) and doxycycline (05/12-05/13) were discontinued due to nephrotoxicity Of note, patient has history of Pseudomonnas infection Plan: -Continue Zosyn (05/09/2025- ) -Continue Levofloxacin 750 mg every 48 hrs due to concern for aspiration PNA (05/14/25- -Blow-by during the day, mechanical ventilation at night as needed at baseline, currently on mechanical ventilation -DuoNeb, Mucomyst and chest physiotherapy scheduled #Paroxysmal atrial fibrillation Per cardiology there is a concern of heart block, tachybradycardia syndrome as well. [id number] score of 3 points indicating 3.2% risk of stroke per year HAS-BLED: 3. High risk of major bleeding 05/13: Discussed with finance assistant?will start on amiodarone previous dose, 200 mg daily. Per cardiology patient is a poor candidate for pacemaker placement, patient was informed at bedside by cardiology team. He verbalized understanding. Plan: - Continue p.o. amiodarone. - Cardiology consulted, appreciate recommendations - Patient will need anticoagulation, however has low hemoglobin, bleeding wound will defer anticoagulation for now. #Congestive heart failure, HFpEF 65% #Diastolic dysfunction, grade 3 #Pulmonary hypertension #Right heart failure #BASIA/OHS #Moderate to severe a AOV calcification with no stenosis Patient has a past medical history of right heart faillure, Diastolic dysfucntion, and HFpEF 65% likely in the setting of cardiomypoathy seconadary to morbid obesity form BASIA/OHS. Given Cxr noted with prominent vascular congestion, consider repeat BNP, although hemodynamically unstable given pressors but may consider. No pheriphearl edema noted. Cxr (05/09/2025): Mild Heart Failure, Prominent vascular congestion and Moderate to large right pleural effusion Echo (04/29/2025): Normal LV size and function. Estimated EF of 65%. Grade III Diastolic Dysfunction.Right ventricle is dilated with mild RV dysfunction RVSP 47mmHg. RAP 15mmHg.Severe biatrial dilation.Moderate to Severe AOV calcification with no stenosis <ild tricuspid regurgitation. No pericardial effusion. Plan -Continue holding Bumex -Recommended patient to sit up in bed to help relieve IVC pressure -Cardiology consulted -Patient 1500 cc/day fluid restriction, daily weights, tube feeds resumed -K >4 and Mg >2 #Decubitus ulcer status post excisional debridement of sacral decubitus ulcer Recent debridement of large decubitus ulcer on 05/02/2025 likely secondary to morbid obestiy and lack of mobility. 04/29: excisional debridement of sacral decubitus ulcer, washout and placement of wound VAC. 05/02: Patient had significant bleeding overnight, wound VAC leaked. Hemoglobin stable this morning, patient's bleeding from wound overnight was controlled with suture ligation. Wound was assessed by general surgeon, patient was transitioned back to red dry dressings daily. Plan: -Continue wound care #Jejunostomy tube #Abdominal abscess - resolved Patient report said that there was an intra-abdominal abscess that have could have been from a perforated ulcer in the past See also note reviewed, mentions that patient likely had a marginal ulcer, but also was not seen on EGD without, currently patient has no abdominal tenderness and is totally asymptomatic. No current drain at this time Patient is status post laparoscopic J-tube placement and is currently on feeds Patient will continue to have this tube and will likely go to a long-term care facility with this until patient can swallow safely Plan: ? Monitor vitals closely #Normocytic normochromic anemia Multifactorial. Patient's baseline hemoglobin throughout the hospitalization has been in the range 9?11, patient did have some bleeding from wound VAC site on 05/02 which was controlled by suture ligation by general surgery. Had recurrent bleeding and eventually heparin drip was held. - Patient is a Islam, denies any blood transfusion/blood products - Will repeat CBC as needed #Right internal jugular venous thrombosis #Right arm swelling Continuing free water flushes, patient has gone multiple days of heparin drip since 04/01 Right upper extremity ultrasound May 04-shows right IJ thrombus Plan: ? Continue to hold heparin drip due to recurrent sacral ulcer bleeding #Morbid obesity #DM2 A1C 7.6 on 03/05/2025 Patient has a BMI of 79.5->68.7 Attempted to prescribe tirzepatide to outside pharmacy to bring inpatient however no one is able to pick it up for the patient. Plan: - ISS scale 2 - Hypoglycemia protocol - 38 units of Lantus. Health Maintenance Disposition: Telemetry DVT prophylaxis: None, patient is Islam and has a bleeding sacral wound GI prophylaxis: Protonix Diet: 2Cal Tube Feeds with 30 cc/hour water flush CODE STATUS: Full code Patient plan of care was discussed with senior Dr. Tobar and the attending physician, Dr. Mendoza. Meena Dutta PGY-1 Attending Provider Attestation/Addendum 64-year-old with morbid obesity with subsequent obesity hypoventilation syndrome requiring tracheostomy and J-tube placement, hypertension, type 2 diabetes, atrial fibrillation, right internal jugular DVT and acute kidney injury secondary to ischemic ATN requiring multiple sessions of hemodialysis and sacral ulcers status post wound VAC currently being treated for acute on chronic hypoxic respiratory failure, ischemic ATN. Overnight, patient noted to have significant bleeding from decubitus ulcer and subsequently general surgery was consulted and heparin drip was discontinued. Talked with the patient regarding discontinuation of heparin drip and given that he has a right internal jugular DVT and atrial fibrillation and updated him that he is at risk for strokes and worsening disease progression however he is in agreement to stop all anticoagulation. In addition, patient is also a Islam and refusing blood product and I counseled him regarding need of blood product and risk of not getting it including worsening disease progression which can lead to cardiac arrest and however he understands and continues to refuse for which we will respect his decision. In addition, patient kidney function appears to be worsening and initially was refusing hemodialysis however I had a discussion with him and states that he will undergo hemodialysis if needed. Discussed with nephrology and per nephrology plan to continue to monitor and if need we will proceed with TDC placement and hemodialysis. Overall prognosis appears to be poor. I reviewed above note and agree with findings and plans. I have also personally examined the patient with medicine team and went over assessment and plan with medical team including test engineering intern and resident physician.
[2025-05-16] MEDS: LANSOPRAZOLE 30 MG TAB.RAP.DR GT (09:46)
[2025-05-16] MEDS: SOD HYPOCHLORITE 1/4 STR 473 ML BTL IRRIG ×3 (09:46→21:09)
[2025-05-16] MEDS: AMIODARONE HCL 200 MG TABLET GT (09:46)
[2025-05-16] MEDS: ZINC SULFATE 220 MG CAPSULE GT (09:46)
[2025-05-16] MEDS: ASCORBIC ACID 250 MG TABLET 500 MG GT ×2 (09:46→21:02)
[2025-05-16] MEDS: INSULIN GLARGINE (Lantus) 5 UNIT/0.05 ML (PER 5 UNITS) 38 UNIT SC (09:49)
--- NOTE | 2025-05-16 15:21 | PD.RESPRO ---
Documentation for date of: 05/16/25 Subjective Subjective Interval history: Overnight events: No acute events overnight. Patient was seen and examined at bedside. AM vitals and labs reviewed. Bumex was held overnight. Patient has no current complaints. Renal function markers continue to be elevated. BUN 112, Cr 4.1, and eGFR 15. Reiterated to patient that maintaining this level of kidney function may result in life threatening issues. The patient is aware and still would not like dialysis to be performed at this time. He wrote that he would consider it still as a last resort. Review of systems otherwise negative except for what is mentioned above. Exam Vital Signs Temp Pulse Resp BP Pulse Ox O2 Del Method O2 Flow Rate 98.8 F 92 19 102/74 99 Mechanical Ventilation 10 05/16/25 12:00 05/16/25 12:15 05/16/25 12:00 05/16/25 12:00 05/16/25 12:15 05/16/25 12:00 05/11/25 14:41 FiO2 50 05/16/25 12:15 Narrative Exam Physical Exam: General: Alert, no acute distress. Skin: Warm, dry, intact, no obvious rash. Head: Normocephalic, atraumatic. Eye: Normal conjunctiva, PERRL. Throat: Oral mucosa moist. Trach tube in place. Cardiovascular: Heart sounds distant due to body habitus. Respiratory: Lung sounds distant due to body habitus. Gastrointestinal: Soft, nontender, non-distended. No guarding or rebound tenderness. Extremities: No edema, no cyanosis, no clubbing. Neuro: No focal deficits observed. Non-verbal, moving all extremities. No overt cerebellar signs/incoordination. Psychiatric: Cooperative, appropriate affect. Objective Labs 05/18/25 04:45 05/18/25 04:45 Labs: Laboratory Results - last 24 hr 05/16/25 05:10 WBC 20.7 H RBC 2.40 L Hgb 7.0 L Hct 21.9 L* MCV 91 MCH 29.2 MCHC 32.0 RDW Std Deviation 58.4 H Plt Count 399 Neut % (Auto) 68 Lymph % (Auto) 21 [place] % (Auto) 8 Eos % (Auto) 3 Baso % (Auto) 0 Neut # (Auto) 14.0 H Lymph # (Auto) 4.3 [place] # (Auto) 1.6 H Eos # (Auto) 0.5 Baso # (Auto) 0.1 Immature Gran # (Auto) 0.28 H Absolute Nucleated RBC 0.00 Immature Gran % 1 H Nucleated RBC % 0 Sodium 140 Potassium 4.9 Chloride 103 Carbon Dioxide 26.4 Anion Gap 11 BUN 112 H* Creatinine 4.1 H* Estim Creat Clear Calc 29.6 L eGFR 15 L BUN/Creatinine Ratio 27 H Glucose 165 H Calculated Osmolality 318 H Calcium 9.0 Corrected Calcium 9.6 Phosphorus 5.6 H Magnesium 2.7 H Total Bilirubin 0.3 AST 25 ALT 17 Alkaline Phosphatase 266 H Total Protein 6.2 Albumin 3.2 L Globulin 3.0 Albumin/Globulin Ratio 1.1 L ABG Interpretation ABG results: 04/18/25 04/18/25 04/18/25 04:40 06:27 10:30 ABG pH 7.28 L 7.33 L 7.36 ABG pCO2 72 H* 67 H 61 H ABG pO2 132 H 60 L D 60 L ABG HCO3 34 H 35 H 34 H ABG O2 Saturation 100 H 93 93 ABG Base Excess 6 H 7 H 8 H 04/19/25 05/10/25 08:53 07:40 ABG pH 7.47 H D 7.52 H ABG pCO2 45 D 40 ABG pO2 66 L 60 L ABG HCO3 33 H 32 H ABG O2 Saturation 96 94 ABG Base Excess 8 H 8 H Quality Measures Quality Measures VTE therapy Advance care planning discussed with:: patient Assessment & Plan Assessment Current Active Medications: Generic Name Dose Route Start Last Admin Trade Name Freq PRN Reason Stop Dose Admin Acetaminophen 650 mg 05/01/25 08:47 05/14/25 19:52 Acetaminophen 325 Mg Tablet PO 05/22/25 20:42 650 mg Q6HR PRN Administration pain 1-3 OR Fever >100.4 Acetylcysteine 3 ml 05/10/25 15:00 05/16/25 07:43 Acetylcysteine Rt Gloria 10% 4 Ml Nebu INH 06/09/25 14:59 3 ml Q8HRRT KOURTNEY Administration Albuterol/Ipratropium 3 ml 05/10/25 15:00 05/16/25 07:43 Albuterol/Ipratropium (Duoneb) Rt Gloria 3 Ml Nebu INH 06/09/25 14:59 3 ml Q8HRRT KOURTNEY Administration Amiodarone HCl 200 mg 05/12/25 13:45 05/16/25 09:46 Amiodarone Hcl 200 Mg Tablet GT 06/11/25 13:44 200 mg QDAY KOURTNEY Administration Ascorbic Acid 500 mg 04/17/25 21:00 05/16/25 09:46 Ascorbic Acid 250 Mg Tablet GT 05/17/25 20:59 500 mg BID KOURTNEY Administration Dextrose 25 ml 05/12/25 13:47 Dextrose 50%-Water Inj 50 Ml Syringe IV 06/11/25 13:46 Q15MIN PRN BG 50-70 responsive npo pt Dextrose 50 ml 05/12/25 13:48 Dextrose 50%-Water Inj 50 Ml Syringe IV 06/11/25 13:47 Q15MIN PRN BG <50 OR BG <70 & pt unresponsive Gabapentin 100 mg 05/11/25 14:05 05/16/25 13:09 Gabapentin 100 Mg Capsule PO 06/10/25 14:04 100 mg TID KOURTNEY Administration Glucagon 1 mg 05/12/25 13:49 Glucagon Inj 1 Mg Vial IM 06/11/25 13:48 Q15MIN PRN BG <70, and no IV access Albumin Human 25 gm in 100 mls @ 100 mls/min 04/24/25 11:52 Albuminar-25 Ivpb IV PRN PRN DIALYSIS Levofloxacin/Dextrose 750 mg in 150 mls @ 100 mls/hr 05/14/25 21:00 05/14/25 22:02 Levaquin Ivpb IV 05/21/25 20:59 100 mls/hr Q48HR@2100 KOURTNEY Administration Insulin Glargine 38 unit 05/13/25 09:00 05/16/25 09:49 Insulin Glargine (Lantus) 5 Unit/0.05 Ml (Per 5 Units) SC 06/12/25 08:59 38 unit QDAY KOURTNEY Administration Insulin Human Lispro 0 unit 05/12/25 18:00 05/16/25 12:25 Insulin Lispro (Admelog) 1 Unit/0.01 Ml Unit SC 06/11/25 17:59 2 unit Q6HR KOURTNEY Administration Protocol Lansoprazole 30 mg 05/05/25 09:00 05/16/25 09:46 Lansoprazole 30 Mg Tab.Joshua. GT 06/04/25 08:59 30 mg QDAY KOURTNEY Administration Pharmacy Consult 1 each 04/24/25 08:43 Pharmacy Renal Dose Adjustment 1 Ea XX 05/24/25 08:42 PRN PRN CONSULT Pharmacy Consult 1 each 05/14/25 08:22 Pharmacy Renal Dose Adjustment 1 Ea XX 06/13/25 08:21 PRN PRN CONSULT Sennosides 2 tab 05/02/25 09:00 05/16/25 09:43 Senna Tablet GT 06/01/25 08:59 2 tab QDAY KOURTNEY Administration Protocol Sodium Hypochlorite 473 ml 05/06/25 21:00 05/16/25 09:47 Sod Hypochlorite 1/4 Str 473 Ml Btl IRRIG 06/05/25 20:59 1 applicatio BID KOURTNEY Administration Zinc Sulfate 220 mg 04/18/25 09:00 05/16/25 09:46 Zinc Sulfate 220 Mg Capsule GT 05/18/25 08:59 220 mg QDAY KOURTNEY Administration Plan Mr. Ortega is a 64 year old gentleman with a relevant medical history of A-fib, T2DM, HTN, severe right-sided heart failure, s/p tracheostomy, and Jehova's Witness, who was admitted to [facility] ICU for shock and acute on chronic hypoxic respiratory failure. Nephrology was consulted due to worsening renal function. #Acute kidney injury due to suspected ATN 2/2 CHF and shock Elevated Cr & BUN, decreased eGFR, in setting of shock that can decrease bloodflow to kidneys, resulting in ATN. Lab values continue to be out of normal range. - Continue to monitor kidney function as patient's current H&H status makes safe hemodialysis difficut. - Discussed with patient the need to perform hemodialysis due to continued elevated Cr & BUN, and decreased eGFR. Patient still does not want hemodialysis, but is willing to consider it as a last resort. - Continue to hold diuresis and re-evaluate symptomatically. - Nephrology will continue to follow. Patient was discussed with the Nephrology attending, Dr. Minor. Thank you for allowing us to participate in the care of this patient. Ollie Sandhu, PGY-1 Attending Provider Attestation/Addendum Pt is seen and examined. labs and investigations are reviewed. Agree with assessment and plan and findings by resident. Clarence Minor MD
--- NOTE | 2025-05-16 15:44 | ESPR_ITS ---
<Statement entered by Lenora John MD - 05/18/25 18:34> I personally evaluated the patient examined appears to be doing clinically fairly well clinically appears to be on the dry side no need to diurese the patient but creatinine is elevated patient probably will require dialysis. Agree with the continuing amiodarone for now for A-fib. Evaluated patient with resident physician PGY 2 agree with the treatment plan recommendation as documented Documentation for date of: 05/16/25 Subjective Subjective Interval history: Patient is seen and examined at bedside No acute overnight events. Denies any other complaints Vitals are stable and patient is still on mechanical ventilator, VC mode, 50% FiO2, PEEP 8 Physical examination remains unchanged. Labs showed hemoglobin 7, uptrending BUN 112 and creatinine 4.1 Urine output in the last 24 hours is 1000 mL Telemetry reviewed and patient is still in A-fib with controlled ventricular rate Recommended to hold diuresis as patient still appears euvolemic Recommend to continue amiodarone 200 Mg through G-tube Hold anticoagulation for now Exam Vital Signs Temp Pulse Resp BP Pulse Ox O2 Del Method O2 Flow Rate 98.8 F 99 24 H 102/74 99 Mechanical Ventilation 10 05/16/25 12:00 05/16/25 15:24 05/16/25 15:24 05/16/25 12:00 05/16/25 15:24 05/16/25 12:00 05/11/25 14:41 FiO2 50 05/16/25 15:24 Narrative Exam General: Awake. obese HEENT: Normocephalic, atraumatic, mucous membranes moist. Heart: IRRegular rate and rhythm, no murmurs. Lungs: Clear to auscultation with no wheezing or crackles. But noted decreased breath sounds bilaterally in view of body habitus Abdomen: Soft, nondistended, nontender, positive bowel sounds. ?No guarding or rebound tenderness. Neurologic: Alert and oriented x3, no gross neurological deficit, and patient able to move all 4 extremities. Extremities: No edema. Skin: Large sacral ulcer in the gluteal region, Decubitus Grade III Objective Labs 05/16/25 05:10 05/16/25 05:10 Labs: Laboratory Results - last 24 hr 05/16/25 05:10 WBC 20.7 H RBC 2.40 L Hgb 7.0 L Hct 21.9 L* MCV 91 MCH 29.2 MCHC 32.0 RDW Std Deviation 58.4 H Plt Count 399 Neut % (Auto) 68 Lymph % (Auto) 21 [place] % (Auto) 8 Eos % (Auto) 3 Baso % (Auto) 0 Neut # (Auto) 14.0 H Lymph # (Auto) 4.3 [place] # (Auto) 1.6 H Eos # (Auto) 0.5 Baso # (Auto) 0.1 Immature Gran # (Auto) 0.28 H Absolute Nucleated RBC 0.00 Immature Gran % 1 H Nucleated RBC % 0 Sodium 140 Potassium 4.9 Chloride 103 Carbon Dioxide 26.4 Anion Gap 11 BUN 112 H* Creatinine 4.1 H* Estim Creat Clear Calc 29.6 L eGFR 15 L BUN/Creatinine Ratio 27 H Glucose 165 H Calculated Osmolality 318 H Calcium 9.0 Corrected Calcium 9.6 Phosphorus 5.6 H Magnesium 2.7 H Total Bilirubin 0.3 AST 25 ALT 17 Alkaline Phosphatase 266 H Total Protein 6.2 Albumin 3.2 L Globulin 3.0 Albumin/Globulin Ratio 1.1 L ABG Interpretation ABG results: 04/18/25 04/18/25 04/18/25 04:40 06:27 10:30 ABG pH 7.28 L 7.33 L 7.36 ABG pCO2 72 H* 67 H 61 H ABG pO2 132 H 60 L D 60 L ABG HCO3 34 H 35 H 34 H ABG O2 Saturation 100 H 93 93 ABG Base Excess 6 H 7 H 8 H 04/19/25 05/10/25 08:53 07:40 ABG pH 7.47 H D 7.52 H ABG pCO2 45 D 40 ABG pO2 66 L 60 L ABG HCO3 33 H 32 H ABG O2 Saturation 96 94 ABG Base Excess 8 H 8 H Quality Measures Quality Measures VTE therapy Advance care planning discussed with:: patient Assessment & Plan Assessment Current Active Medications: Generic Name Dose Route Start Last Admin Trade Name Freq PRN Reason Stop Dose Admin Acetaminophen 650 mg 05/01/25 08:47 05/14/25 19:52 Acetaminophen 325 Mg Tablet PO 05/22/25 20:42 650 mg Q6HR PRN Administration pain 1-3 OR Fever >100.4 Acetylcysteine 3 ml 05/10/25 15:00 05/16/25 15:24 Acetylcysteine Rt Gloria 10% 4 Ml Nebu INH 06/09/25 14:59 3 ml Q8HRRT KOURTNEY Administration Albuterol/Ipratropium 3 ml 05/10/25 15:00 05/16/25 15:24 Albuterol/Ipratropium (Duoneb) Rt Gloria 3 Ml Nebu INH 06/09/25 14:59 3 ml Q8HRRT KOURTNEY Administration Amiodarone HCl 200 mg 05/12/25 13:45 05/16/25 09:46 Amiodarone Hcl 200 Mg Tablet GT 06/11/25 13:44 200 mg QDAY KOURTNEY Administration Ascorbic Acid 500 mg 04/17/25 21:00 05/16/25 09:46 Ascorbic Acid 250 Mg Tablet GT 05/17/25 20:59 500 mg BID KOURTNEY Administration Dextrose 25 ml 05/12/25 13:47 Dextrose 50%-Water Inj 50 Ml Syringe IV 06/11/25 13:46 Q15MIN PRN BG 50-70 responsive npo pt Dextrose 50 ml 05/12/25 13:48 Dextrose 50%-Water Inj 50 Ml Syringe IV 06/11/25 13:47 Q15MIN PRN BG <50 OR BG <70 & pt unresponsive Gabapentin 100 mg 05/11/25 14:05 05/16/25 13:09 Gabapentin 100 Mg Capsule PO 06/10/25 14:04 100 mg TID KOURTNEY Administration Glucagon 1 mg 05/12/25 13:49 Glucagon Inj 1 Mg Vial IM 06/11/25 13:48 Q15MIN PRN BG <70, and no IV access Albumin Human 25 gm in 100 mls @ 100 mls/min 04/24/25 11:52 Albuminar-25 Ivpb IV PRN PRN DIALYSIS Levofloxacin/Dextrose 750 mg in 150 mls @ 100 mls/hr 05/14/25 21:00 05/14/25 22:02 Levaquin Ivpb IV 05/21/25 20:59 100 mls/hr Q48HR@2100 KOURTNEY Administration Insulin Glargine 38 unit 05/13/25 09:00 05/16/25 09:49 Insulin Glargine (Lantus) 5 Unit/0.05 Ml (Per 5 Units) SC 06/12/25 08:59 38 unit QDAY KOURTNEY Administration Insulin Human Lispro 0 unit 05/12/25 18:00 05/16/25 12:25 Insulin Lispro (Admelog) 1 Unit/0.01 Ml Unit SC 06/11/25 17:59 2 unit Q6HR KOURTNEY Administration Protocol Lansoprazole 30 mg 05/05/25 09:00 05/16/25 09:46 Lansoprazole 30 Mg Tab. GT 06/04/25 08:59 30 mg QDAY KOURTNEY Administration Pharmacy Consult 1 each 04/24/25 08:43 Pharmacy Renal Dose Adjustment 1 Ea XX 05/24/25 08:42 PRN PRN CONSULT Pharmacy Consult 1 each 05/14/25 08:22 Pharmacy Renal Dose Adjustment 1 Ea XX 06/13/25 08:21 PRN PRN CONSULT Sennosides 2 tab 05/02/25 09:00 05/16/25 09:43 Senna Tablet GT 06/01/25 08:59 2 tab QDAY KOURTNEY Administration Protocol Sodium Hypochlorite 473 ml 05/06/25 21:00 05/16/25 09:47 Sod Hypochlorite 1/4 Str 473 Ml Btl IRRIG 06/05/25 20:59 1 applicatio BID KOURTNEY Administration Zinc Sulfate 220 mg 04/18/25 09:00 05/16/25 09:46 Zinc Sulfate 220 Mg Capsule GT 05/18/25 08:59 220 mg QDAY KOURTNEY Administration Plan 64-year-old male, [place] with a past medical history of hypertension, diabetes mellitus type 2, history of atrial fibrillation, CHF HFpEF 65%, grade 3 diastolic dysfunction, right heart failure, RSVP 47, moderate to severe ALB calsifications with no stenosis, status post tracheostomy, s/p PEG Tube at [facility], bariatric team, history of dyspahagia, extensive decubitus ulcers, CKD, history of anemia, history of Diego-en- Y gastric bypass, BASIA/OHS, and morbid obesity. Patient was upgraded to ICU for a third time with in acute respiratory respiratory failure secondary to mucous plug and shock, likely cardiogenic shock secondary to complete heart block requiring pressors and downgraded again # A-fib with RVR - s/p cardioversion ---> CVR # Bradycardia and questionable complete heart block, resolved - Patient was hypoxic and was transferred to the ICU on 05/09/2025. - Cardiology was consulted 05/09/2025 for significant bradycardia requiring external temporary transcutaneous pacing. - Plan was to place a temporary transvenous pacemaker if the patient continues to be bradycardic as he was 100% dependent on the transcutaneous pacing. - Bronchoscopy was performed which showed small mucous plug which was removed and patient rhythm was back to his atrial fibrillation with RVR. - Patient was on dopamine at that point of time. Patient blood pressure was on the lower side and was unstable and required cardioversion x 1. - Patient was on levophed and phenylephrine for a short period of time. - Patient is presently ventilator dependent and has a tracheostomy in place along with a jejunostomy. Plan - Recommend to continue telemetry monitoring - In view of ongoing sacral ulcer with recurrent infections, pacemaker placement cannot be done. But fortunately patient did not have any further episodes of bradycardia. So no need of pacemaker placement as of now - Recommended to continue amiodarone 200 Mg G-tube once daily - As patient had large decubitus ulcer and has tendency to bleed, anticoagulation is held for now # H/O CHF, HFpEF 65% #Diastolic dysfunction, grade 3 #Pulmonary hypertension #BASIA/OHS #Moderate to severe a AOV calcification with no stenosis #Moderate Right Pleural Effusion - Patient has a past medical history of right heart faillure, Diastolic dysfucntion, and HFpEF 65% likely in the setting of cardiomypoathy seconadary to morbid obesity form BASIA/OHS. - Trona Mary 03/19/2025: RAP 8, PAP 27, PCWP 7. - Echo (04/29/2025): Normal LV size and function. Estimated EF of 65%. Grade III Diastolic Dysfunction.Right ventricle is dilated with mild RV dysfunction RVSP 47mmHg. RAP 15mmHg.Severe biatrial dilation.Moderate to Severe AOV calcification with no stenosis <ild tricuspid regurgitation. No pericardial effusion. - Echo (05/14/2025) : Normal LV size and function. Estimated EF is 55 to 60%. Severely RA dilated right ventricle as well as right atrium. IVS flattening noted both in systole and diastole indicating both pressure and volume overlo Plan -Recommended to hold diuresis for now in view of uptrending BUN and creatinine -K >4 and Mg >2 #Acute on Chronic Respiratory Failure secondary to mucus plug #Healthcare-Associated Pneumonia #Leukocytosis #Large Sacral Decubitus Ulcer s/p excisional debridement (05/02/2025) #CKD stage III #Jejunostomy #History of abdominal abscess s/p percutaneous drainage #Diabetes Mellitus Type 2 non insulin depedent #Normocytic Anemia Management of rest of the medical conditions as per primary team and other consultants. Thank you for the consult and allowing us to participate in the care of the patient. Cardiology will continue to follow. Patient plan of care was discussed with Chute Puller, Dr. Alvaro Ahumada, PGY2
[2025-05-16] MEDS: LEVOFLOXACIN/D5W 750MG IVPB 750 MG/150 ML BAG 100 MG IV (21:02)
[2025-05-17] VITALS (13 sets, daily range): BP systolic 94–122; BP diastolic 66–86; PULSE 75–109; RESP 12–26; TEMP 36.1–37; O2SAT 97–99; BMI 67.8
[2025-05-17] MEDS: GABAPENTIN 100 MG CAPSULE PO ×3 (05:31→21:52)
[2025-05-17] MEDS: ACETYLCYSTEINE RT SOL 10% 4 ML NEBU 3 ML INH ×3 (07:00→22:25)
[2025-05-17] MEDS: ALBUTEROL/IPRATROPIUM (Duoneb) RT SOL 3 ML NEBU INH ×3 (07:00→22:25)
[2025-05-17] MEDS: LANSOPRAZOLE 30 MG TAB.RAP.DR GT (08:02)
[2025-05-17] MEDS: ZINC SULFATE 220 MG CAPSULE GT (08:02)
[2025-05-17] MEDS: AMIODARONE HCL 200 MG TABLET GT (08:02)
[2025-05-17] MEDS: ASCORBIC ACID 250 MG TABLET 500 MG GT (08:03)
[2025-05-17] MEDS: INSULIN GLARGINE (Lantus) 5 UNIT/0.05 ML (PER 5 UNITS) 38 UNIT SC (08:03)
[2025-05-17 08:47] LABS: Alanine Aminotransferase 16 U/L (10-49); Albumin, Serum 3.4 gm/dL (3.4-4.8); Albumin/Globulin Ratio 1.1 (1.2-2.2); Alkaline Phosphatase 251 U/L (46-116); Anion Gap 16 (7-16); Aspartate Amino Transferase 20 U/L (0-34); BUN/Creatinine Ratio 29 Ratio (12-20); Bilirubin,Total 0.4 mg/dL (0.3-1.2); Calcium 9.0 mg/dL (8.3-10.6); Calcium (Corrected) 9.5 mg/dL (8.5-10.1); Carbon Dioxide 26.1 mMol/L (20.0-31.0); Chloride 99 mMol/L (98-107); Creatinine (Component) 4.2 mg/dL (0.6-1.3); Estimated Creatinine Clearance 28.9 mL/min (>60); Globulin 3.2 gm/dL (2.3-3.5); Glucose 157 mg/dL (74-106); Magnesium 2.8 mg/dL (1.6-2.6); Osmolality,Calculated 322 (275-295); Phosphorous 5.7 mg/dL (2.4-5.1); Potassium 4.8 mMol/L (3.4-5.1); Sodium 141 mMol/L (136-145); Total Protein 6.6 gm/dL (5.7-8.2); eGFR 15 See Note
--- NOTE | 2025-05-17 08:47 | PD.RESPRO ---
Documentation for date of: 05/17/25 Subjective Subjective Interval history: Overnight events: No acute events overnight. Patient was seen and examined at bedside. AM vitals and labs reviewed. BUN 120, Cr 4.2, eGFR 9. Patient still on mechanical ventilator (Vt 500, RR 22, PEEP 8) with trach tube in place. Renal US showed mild bilateral hydronephrosis. No complaints at this time. During visit earlier this morning, the patient denied wanting to consider hemodialysis unless as a last resort. However, I was notified by medicine team that Mr. Ortega said he was alright with having hemodialysis performed later in the day. After visiting Mr. Ortega again that day, he stated that he was alright with having hemodialysis performed, but does not want a permanent catheter placed. After speaking with Dr. Minor, it was determined that given Mr. Ortega's current condition and stability thus far, it would not warrant urgent dialysis right this moment, but would still need to consider it depending on his progress in the following days. Review of systems otherwise negative except for what is mentioned above. Exam Vital Signs Temp Pulse Resp BP Pulse Ox O2 Del Method O2 Flow Rate 98.4 F 100 23 H 102/81 99 Mechanical Ventilation 10 05/17/25 04:00 05/17/25 08:02 05/17/25 06:57 05/17/25 08:02 05/17/25 06:57 05/17/25 04:00 05/17/25 04:00 FiO2 50 05/17/25 06:57 Narrative Exam Physical Exam: General: Alert, no acute distress. Skin: Warm, dry, intact, no obvious rash. Head: Normocephalic, atraumatic. Eye: Normal conjunctiva, PERRL. Cardiovascular: Irregular rate and rhythm, no murmur noted. Respiratory: Respirations unlabored on mechanical ventilation. Breath sounds distant due to body habitus. Gastrointestinal: Soft, nontender, non-distended. No guarding or rebound tenderness. Extremities: No edema, no cyanosis, no clubbing. 2+ radial pulse bilaterally, 2+ pedal pulse bilaterally. Neuro: No focal deficits observed. Nonverbal, moving all extremities. No overt cerebellar signs/incoordination. Psychiatric: Cooperative, appropriate affect. Objective Labs 05/18/25 04:45 05/18/25 04:45 ABG Interpretation ABG results: 04/18/25 04/18/25 04/18/25 04:40 06:27 10:30 ABG pH 7.28 L 7.33 L 7.36 ABG pCO2 72 H* 67 H 61 H ABG pO2 132 H 60 L D 60 L ABG HCO3 34 H 35 H 34 H ABG O2 Saturation 100 H 93 93 ABG Base Excess 6 H 7 H 8 H 04/19/25 05/10/25 08:53 07:40 ABG pH 7.47 H D 7.52 H ABG pCO2 45 D 40 ABG pO2 66 L 60 L ABG HCO3 33 H 32 H ABG O2 Saturation 96 94 ABG Base Excess 8 H 8 H Quality Measures Quality Measures VTE therapy Advance care planning discussed with:: patient Assessment & Plan Assessment Current Active Medications: Generic Name Dose Route Start Last Admin Trade Name Freq PRN Reason Stop Dose Admin Acetaminophen 650 mg 05/01/25 08:47 05/14/25 19:52 Acetaminophen 325 Mg Tablet PO 05/22/25 20:42 650 mg Q6HR PRN Administration pain 1-3 OR Fever >100.4 Acetylcysteine 3 ml 05/10/25 15:00 05/17/25 07:00 Acetylcysteine Rt Gloria 10% 4 Ml Nebu INH 06/09/25 14:59 3 ml Q8HRRT KOURTNEY Administration Albuterol/Ipratropium 3 ml 05/10/25 15:00 05/17/25 07:00 Albuterol/Ipratropium (Duoneb) Rt Gloria 3 Ml Nebu INH 06/09/25 14:59 3 ml Q8HRRT KOURTNEY Administration Amiodarone HCl 200 mg 05/12/25 13:45 05/17/25 08:02 Amiodarone Hcl 200 Mg Tablet GT 06/11/25 13:44 200 mg QDAY KOURTNEY Administration Ascorbic Acid 500 mg 04/17/25 21:00 05/17/25 08:03 Ascorbic Acid 250 Mg Tablet GT 05/17/25 20:59 500 mg BID KOURTNEY Administration Dextrose 25 ml 05/12/25 13:47 Dextrose 50%-Water Inj 50 Ml Syringe IV 06/11/25 13:46 Q15MIN PRN BG 50-70 responsive npo pt Dextrose 50 ml 05/12/25 13:48 Dextrose 50%-Water Inj 50 Ml Syringe IV 06/11/25 13:47 Q15MIN PRN BG <50 OR BG <70 & pt unresponsive Gabapentin 100 mg 05/11/25 14:05 05/17/25 05:31 Gabapentin 100 Mg Capsule PO 06/10/25 14:04 100 mg TID KOURTNEY Administration Glucagon 1 mg 05/12/25 13:49 Glucagon Inj 1 Mg Vial IM 06/11/25 13:48 Q15MIN PRN BG <70, and no IV access Albumin Human 25 gm in 100 mls @ 100 mls/min 04/24/25 11:52 Albuminar-25 Ivpb IV PRN PRN DIALYSIS Levofloxacin/Dextrose 750 mg in 150 mls @ 100 mls/hr 05/14/25 21:00 05/16/25 21:02 Levaquin Ivpb IV 05/21/25 20:59 100 mls/hr Q48HR@2100 KOURTNEY Administration Insulin Glargine 38 unit 05/13/25 09:00 05/17/25 08:03 Insulin Glargine (Lantus) 5 Unit/0.05 Ml (Per 5 Units) SC 06/12/25 08:59 38 unit QDAY KOURTNEY Administration Insulin Human Lispro 0 unit 05/12/25 18:00 05/17/25 05:29 Insulin Lispro (Admelog) 1 Unit/0.01 Ml Unit SC 06/11/25 17:59 Not Given Q6HR [facility] Protocol Lansoprazole 30 mg 05/05/25 09:00 05/17/25 08:02 Lansoprazole 30 Mg Tab. GT 06/04/25 08:59 30 mg QDAY KOURTNEY Administration Pharmacy Consult 1 each 04/24/25 08:43 Pharmacy Renal Dose Adjustment 1 Ea XX 05/24/25 08:42 PRN PRN CONSULT Pharmacy Consult 1 each 05/14/25 08:22 Pharmacy Renal Dose Adjustment 1 Ea XX 06/13/25 08:21 PRN PRN CONSULT Sennosides 2 tab 05/02/25 09:00 05/17/25 08:03 Senna Tablet GT 06/01/25 08:59 2 tab QDAY KORUTNEY Administration Protocol Sodium Hypochlorite 473 ml 05/06/25 21:00 05/16/25 21:09 Sod Hypochlorite 1/4 Str 473 Ml Btl IRRIG 06/05/25 20:59 1 applicatio BID KOURTNEY Administration Zinc Sulfate 220 mg 04/18/25 09:00 05/17/25 08:02 Zinc Sulfate 220 Mg Capsule GT 05/18/25 08:59 220 mg QDAY KOURTNEY Administration Plan Mr. Ortega is a 64 year old gentleman with a relevant medical history of A-fib, T2DM, HTN, severe right-sided heart failure, s/p tracheostomy, and Jehova's Witness, who was admitted to [facility] ICU for shock and acute on chronic hypoxic respiratory failure. Nephrology was consulted due to worsening renal function. #Acute kidney injury due to suspected ATN 2/2 CHF and shock Elevated Cr & BUN, decreased eGFR, in setting of shock that can decrease bloodflow to kidneys, resulting in ATN. Lab values continue to be out of normal range. - Continue to monitor kidney function as patient's current H&H status makes safe hemodialysis difficut. - Discussed with patient the need to perform hemodialysis due to continued elevated Cr & BUN, and decreased eGFR. - Current clinical picture does not necessitate hemodialysis urgently given patient and lab value stability, but may require one in the coming days. -Patient expressed desire to have only a temporary catheter placed for hemodialysis. - Continue to hold diuresis and re-evaluate symptomatically. - Nephrology will continue to follow. Patient was discussed with the Nephrology attending, Dr. Minor. Thank you for allowing us to participate in the care of this patient. Ollie Sandhu, PGY-1 Attending Provider Attestation/Addendum Pt is seen and examined. labs and investigations are reviewed. Agree with assessment and plan and findings by resident. Clarence Minor MD
[2025-05-17 08:52] LABS: Blood Urea Nitrogen 120 mg/dL (9-23)
[2025-05-17 09:19] LABS: Basophils # (Auto) 0.1 Thou/mm3 (0.0-0.2); Basophils % (Auto) 0 % (0-2.5); Eosinophils # (Auto) 0.5 Thou/mm3 (0.0-0.5); Eosinophils % (Auto) 2 % (0-10); Hematocrit 22.9 % (41.0-53.0); Immature Granulocytes Auto 0.38 Thou/mm3 (0.00-0.00); Lymphocytes # (Auto) 6.0 Thou/mm3 (1.0-4.8); Lymphocytes % (Auto) 24 % (10-50); Mean Corpuscular HGB Conc 31.0 g/dl (31.0-37.0); Mean Corpuscular Hemoglobin 28.4 pg (25.0-35.0); Mean Corpuscular Volume 92 fL (80-100); Monocytes # (Auto) 1.7 Thou/mm3 (0.0-0.8); Monocytes % (Auto) 7 % (0-12); Neutrophils # (Auto) 16.2 Thou/mm3 (1.8-7.7); Neutrophils % (Auto) 66 % (37-80); Nucleated Red Blood Cell # 0.00 Thou/mm3 (0.00-0.00); Nucleated Red Blood Cell % 0 /100 WBC (0); Platelet Count 445 Thou/mm3 (140-440); RDW Standard Deviation 58.8 fL (35.1-43.9); Red Blood Count 2.50 Miln/mm3 (4.50-5.90); White Blood Count 24.8 Thou/mm3 (3.8-10.6)
[2025-05-17 09:20] LABS: Hemoglobin 7.1 g/dL (13.5-16.0)
--- NOTE | 2025-05-17 09:53 | ESPR_ITS ---
<Statement entered by Pavel Mendoza MD - 05/23/25 14:54> I reviewed above note and agree with findings and plans. I have also personally examined the patient with medicine team and went over assessment and plan with medical team including record label intern and resident physician. Documentation for date of: 05/17/25 Subjective Subjective Interval history: No acute events overnight. Patient seen and examined at bedside this AM. Labs and vitals were reviewed. WBC and platelet slightly uptrending. Hgb stable at 7.1. Creatinine 4.2 and BUN 120, continues to worsen. Phosphorus and magnesium still elevated. No further complaints at this time. Notified patient that still pending LTAC placement. Re-discussed possibility of requiring hemodialysis in the near future as his renal function is continuing to decline, patient was agreeable to plan; however only temporarily instead of fci placement. Review of systems otherwise negative except what is mentioned above. Exam Vital Signs Temp Pulse Resp BP Pulse Ox O2 Del Method O2 Flow Rate 97.8 F 100 12 102/81 97 Mechanical Ventilation 10 05/17/25 08:00 05/17/25 08:02 05/17/25 08:00 05/17/25 08:02 05/17/25 08:00 05/17/25 08:00 05/17/25 08:00 FiO2 50 05/17/25 08:00 Narrative Exam Physical Exam: Constitutional: Alert, oriented x 3 and no acute distress. Nods and expresses self to questions, writes on white board for communication. Elderly male, morbidly obese. HEENT: Vision grossly intact. Patent nares. Trachea midline. Tracheostomy tube in situ, exit site clean. Respiratory: Chest normal on inspection and decreased air entry in all lung sims, transmitted sounds and congestion on anterior chest wall, middle and upper lobes. Cardiovascular: S1 and S2 audible, RRR. No murmurs carotid bruit. No gross JVD. Abdominal: Soft, obese and non tender to palpation in all quadrants. BS +. Jejunostomy tube in situ, exit site clean Genitourinary: No bladder tenderness, no flank pain. Normal to palpation Musculoskeletal: Extremities tone within normal limits. Mild edema in right upper extremity, improved upon placing on pillow. No lower extremity edema bilaterally. Neurological: CN II - XII grossly intact. Extremity motor and sensation grossly intact. Extremities: 1+ pitting lower extremity edema bilaterally. Skin: Warm, dry and intact. Large sacral decubitus ulcer, necrotic tissue noted. No purulent drainage noted. Cleanly packed with dressings. Psychiatric: Patient has good affect, is cooperative Objective Labs 05/17/25 07:45 05/17/25 07:45 Labs: Laboratory Results - last 24 hr 05/17/25 07:45 WBC 24.8 H RBC 2.50 L Hgb 7.1 L Hct 22.9 L MCV 92 MCH 28.4 MCHC 31.0 RDW Std Deviation 58.8 H Plt Count 445 H D Neut % (Auto) 66 Lymph % (Auto) 24 [place] % (Auto) 7 Eos % (Auto) 2 Baso % (Auto) 0 Neut # (Auto) 16.2 H Lymph # (Auto) 6.0 H [place] # (Auto) 1.7 H Eos # (Auto) 0.5 Baso # (Auto) 0.1 Immature Gran # (Auto) 0.38 H Absolute Nucleated RBC 0.00 Immature Gran % 2 H Nucleated RBC % 0 Sodium 141 Potassium 4.8 Chloride 99 Carbon Dioxide 26.1 Anion Gap 16 BUN 120 H* Creatinine 4.2 H* Estim Creat Clear Calc 28.9 L eGFR 15 L BUN/Creatinine Ratio 29 H Glucose 157 H Calculated Osmolality 322 H Calcium 9.0 Corrected Calcium 9.5 Phosphorus 5.7 H Magnesium 2.8 H Total Bilirubin 0.4 AST 20 ALT 16 Alkaline Phosphatase 251 H Total Protein 6.6 Albumin 3.4 Globulin 3.2 Albumin/Globulin Ratio 1.1 L ABG Interpretation ABG results: 04/18/25 04/18/25 04/18/25 04:40 06:27 10:30 ABG pH 7.28 L 7.33 L 7.36 ABG pCO2 72 H* 67 H 61 H ABG pO2 132 H 60 L D 60 L ABG HCO3 34 H 35 H 34 H ABG O2 Saturation 100 H 93 93 ABG Base Excess 6 H 7 H 8 H 04/19/25 05/10/25 08:53 07:40 ABG pH 7.47 H D 7.52 H ABG pCO2 45 D 40 ABG pO2 66 L 60 L ABG HCO3 33 H 32 H ABG O2 Saturation 96 94 ABG Base Excess 8 H 8 H Quality Measures Quality Measures VTE therapy Advance care planning discussed with:: patient Assessment & Plan Assessment Current Active Medications: Generic Name Dose Route Start Last Admin Trade Name Tundeq PRN Reason Stop Dose Admin Acetaminophen 650 mg 05/01/25 08:47 05/14/25 19:52 Acetaminophen 325 Mg Tablet PO 05/22/25 20:42 650 mg Q6HR PRN Administration pain 1-3 OR Fever >100.4 Acetylcysteine 3 ml 05/10/25 15:00 05/17/25 07:00 Acetylcysteine Rt Gloria 10% 4 Ml Nebu INH 06/09/25 14:59 3 ml Q8HRRT KOURTNEY Administration Albuterol/Ipratropium 3 ml 05/10/25 15:00 05/17/25 07:00 Albuterol/Ipratropium (Duoneb) Rt Gloria 3 Ml Nebu INH 06/09/25 14:59 3 ml Q8HRRT KOURTNEY Administration Amiodarone HCl 200 mg 05/12/25 13:45 05/17/25 08:02 Amiodarone Hcl 200 Mg Tablet GT 06/11/25 13:44 200 mg QDAY KOURTNEY Administration Ascorbic Acid 500 mg 04/17/25 21:00 05/17/25 08:03 Ascorbic Acid 250 Mg Tablet GT 05/17/25 20:59 500 mg BID KOURTNEY Administration Dextrose 25 ml 05/12/25 13:47 Dextrose 50%-Water Inj 50 Ml Syringe IV 06/11/25 13:46 Q15MIN PRN BG 50-70 responsive npo pt Dextrose 50 ml 05/12/25 13:48 Dextrose 50%-Water Inj 50 Ml Syringe IV 06/11/25 13:47 Q15MIN PRN BG <50 OR BG <70 & pt unresponsive Gabapentin 100 mg 05/11/25 14:05 05/17/25 05:31 Gabapentin 100 Mg Capsule PO 06/10/25 14:04 100 mg TID KOURTNEY Administration Glucagon 1 mg 05/12/25 13:49 Glucagon Inj 1 Mg Vial IM 06/11/25 13:48 Q15MIN PRN BG <70, and no IV access Albumin Human 25 gm in 100 mls @ 100 mls/min 04/24/25 11:52 Albuminar-25 Ivpb IV PRN PRN DIALYSIS Levofloxacin/Dextrose 750 mg in 150 mls @ 100 mls/hr 05/14/25 21:00 05/16/25 21:02 Levaquin Ivpb IV 05/21/25 20:59 100 mls/hr Q48HR@2100 KOURTNEY Administration Insulin Glargine 38 unit 05/13/25 09:00 05/17/25 08:03 Insulin Glargine (Lantus) 5 Unit/0.05 Ml (Per 5 Units) SC 06/12/25 08:59 38 unit QDAY KOURTNEY Administration Insulin Human Lispro 0 unit 05/12/25 18:00 05/17/25 05:29 Insulin Lispro (Admelog) 1 Unit/0.01 Ml Unit SC 06/11/25 17:59 Not Given Q6HR KOURTNEY Protocol Lansoprazole 30 mg 05/05/25 09:00 05/17/25 08:02 Lansoprazole 30 Mg Tab.Rap. GT 06/04/25 08:59 30 mg QDAY KOURTNEY Administration Pharmacy Consult 1 each 04/24/25 08:43 Pharmacy Renal Dose Adjustment 1 Ea XX 05/24/25 08:42 PRN PRN CONSULT Pharmacy Consult 1 each 05/14/25 08:22 Pharmacy Renal Dose Adjustment 1 Ea XX 06/13/25 08:21 PRN PRN CONSULT Sennosides 2 tab 05/02/25 09:00 05/17/25 08:03 Senna Tablet GT 06/01/25 08:59 2 tab QDAY KOURTNEY Administration Protocol Sodium Hypochlorite 473 ml 05/06/25 21:00 05/16/25 21:09 Sod Hypochlorite 1/4 Str 473 Ml Btl IRRIG 06/05/25 20:59 1 applicatio BID KOURTNEY Administration Zinc Sulfate 220 mg 04/18/25 09:00 05/17/25 08:02 Zinc Sulfate 220 Mg Capsule GT 05/18/25 08:59 220 mg QDAY KOURTNEY Administration Plan 64-year-old with morbid obesity with subsequent obesity hypoventilation syndrome requiring tracheostomy and J-tube placement, hypertension, type 2 diabetes, atrial fibrillation, right internal jugular DVT and acute kidney injury secondary to ischemic ATN requiring multiple sessions of hemodialysis and sacral ulcers status post wound VAC currently being treated for acute on chronic hypoxic respiratory failure, ischemic ATN. Pending placement at LTAC. #Acute kidney injury-suspicion of ischemic ATN, resolved #Fluid overload #Acute on chronic hypoxic respiratory failure, improving. 04/20 ? Attempt was made to place Fuller catheter however unable to pass catheter due to significant resistance and attempt was terminated. Discussed with nursing about possibility of weighing briefs daily. Patient had temporary hemodialysis catheter placed 04/24, receiving dialysis had 1 L removed on 04/24, 2 L on 04/25, 2.14 on 04/26, 2.1 L on 04/29; temporary dialysis catheter discontinued on 05/06 Patient being followed by nephrology, nephrology agrees with diuresis for now, will need close monitoring, poor candidate for dialysis due to body habitus and also has chronic anemia with wound bleeding from sacral region-second baker did discuss with patient in detail, he verbalizes understanding. Bumex held on 05/15 due to worsening creatinine, continues to worsen. Due to lack of improvement despite diuretic holiday, discussed with patient today need for hemodialysis in the near future. Patient initially refused but after multiple attempts of counseling and explaining risks and benefits, including , patient was eventually agreeable. Plan: -Continue to hold Bumex -Nephrology consulted, appreciate recommendations -Consider restarting on hemodialysis if worsen -Antibiotics as above -Monitor I&O's -Avoid nephrotoxic agents -Renally dose medication #Acute on Chronic Respiratory Failure secondary to mucous plug #Healthcare-Associated Pneumonia #Leukocytosis Patient noted to have acute on chronic respiratory failure, required bronchoscopy w/ mucous plugs removed. Previous sputum Pseudomnas (04/03/2025) 05/09/2025 Bronchial washing culture grew pseudomonas, sensitive to Zosyn Vancomycin (05/09/2025-05/12/25) and doxycycline (05/12-05/13) were discontinued due to nephrotoxicity. Completed Zosyn course (05/09-05/16/25) Of note, patient has history of Pseudomonnas infection Plan: -Continue Levofloxacin 750 mg every 48 hrs for 7 days due to concern for aspiration PNA (05/14/25- -Blow-by during the day, mechanical ventilation at night as needed at baseline, currently on mechanical ventilation -DuoNeb, Mucomyst and chest physiotherapy scheduled #Paroxysmal atrial fibrillation Per cardiology there is a concern of heart block, tachybradycardia syndrome as well. [id number] score of 3 points indicating 3.2% risk of stroke per year HAS-BLED: 3. High risk of major bleeding 05/13: Discussed with multiple slide operator?will start on amiodarone previous dose, 200 mg daily. Per cardiology patient is a poor candidate for pacemaker placement, patient was informed at bedside by cardiology team. He verbalized understanding. Plan: - Continue p.o. amiodarone. - Cardiology consulted, appreciate recommendations - Patient will need anticoagulation, however has low hemoglobin, bleeding wound will defer anticoagulation for now. #Congestive heart failure, HFpEF 65% #Diastolic dysfunction, grade 3 #Pulmonary hypertension #Right heart failure #BASIA/OHS #Moderate to severe a AOV calcification with no stenosis Patient has a past medical history of right heart faillure, Diastolic dysfucntion, and HFpEF 65% likely in the setting of cardiomypoathy seconadary to morbid obesity form BASIA/OHS. Given Cxr noted with prominent vascular congestion, consider repeat BNP, although hemodynamically unstable given pressors but may consider. No pheriphearl edema noted. Cxr (05/09/2025): Mild Heart Failure, Prominent vascular congestion and Moderate to large right pleural effusion Echo (04/29/2025): Normal LV size and function. Estimated EF of 65%. Grade III Diastolic Dysfunction.Right ventricle is dilated with mild RV dysfunction RVSP 47mmHg. RAP 15mmHg.Severe biatrial dilation.Moderate to Severe AOV calcification with no stenosis <ild tricuspid regurgitation. No pericardial effusion. Plan -Continue holding Bumex -Recommended patient to sit up in bed to help relieve IVC pressure -Cardiology consulted -Patient 1500 cc/day fluid restriction, daily weights, tube feeds resumed -K >4 and Mg >2 #Decubitus ulcer status post excisional debridement of sacral decubitus ulcer Recent debridement of large decubitus ulcer on 05/02/2025 likely secondary to morbid obestiy and lack of mobility. 04/29: excisional debridement of sacral decubitus ulcer, washout and placement of wound VAC. 05/02: Patient had significant bleeding overnight, wound VAC leaked. Hemoglobin stable this morning, patient's bleeding from wound overnight was controlled with suture ligation. Wound was assessed by general surgeon, patient was transitioned back to red dry dressings daily. Plan: -Continue wound care #Jejunostomy tube #Abdominal abscess - resolved Patient report said that there was an intra-abdominal abscess that have could have been from a perforated ulcer in the past See also note reviewed, mentions that patient likely had a marginal ulcer, but also was not seen on EGD without, currently patient has no abdominal tenderness and is totally asymptomatic. No current drain at this time Patient is status post laparoscopic J-tube placement and is currently on feeds Patient will continue to have this tube and will likely go to a long-term care facility with this until patient can swallow safely Plan: ? Monitor vitals closely #Normocytic normochromic anemia Multifactorial. Patient's baseline hemoglobin throughout the hospitalization has been in the range 9?11, patient did have some bleeding from wound VAC site on 05/02 which was controlled by suture ligation by general surgery. Had recurrent bleeding and eventually heparin drip was held. - Patient is a Rastafarian, denies any blood transfusion/blood products - Will repeat CBC as needed #Right internal jugular venous thrombosis #Right arm swelling Continuing free water flushes, patient has gone multiple days of heparin drip since 04/01 Right upper extremity ultrasound May 04-shows right IJ thrombus Plan: ? Continue to hold heparin drip due to recurrent sacral ulcer bleeding #Morbid obesity #DM2 A1C 7.6 on 03/05/2025 Patient has a BMI of 79.5->68.7 Attempted to prescribe tirzepatide to outside pharmacy to bring inpatient however no one is able to pick it up for the patient. Plan: - ISS scale 2 - Hypoglycemia protocol - 38 units of Lantus. Health Maintenance Disposition: Telemetry DVT prophylaxis: None, patient is Rastafarian and has a bleeding sacral wound GI prophylaxis: Protonix Diet: 2Cal Tube Feeds with 30 cc/hour water flush CODE STATUS: Full code Patient plan of care was discussed with attending physician, Dr. Mendoza. Meena Dutta PGY-1
[2025-05-17] MEDS: ACETAMINOPHEN 325 MG TABLET 650 MG PO (11:50)
[2025-05-17] MEDS: SOD HYPOCHLORITE 1/4 STR 473 ML BTL IRRIG ×2 (14:32→21:54)
[2025-05-17] MEDS: INSULIN LISPRO (AdmeLOG) 1 UNIT/0.01 ML UNIT SC (17:53)
--- NOTE | 2025-05-17 18:41 | ESPR_ITS ---
<Statement entered by Lenora John MD - 05/18/25 18:51> I personally examined evaluated the patient with PGY 2 patient appears to be clinically stable but BUN/creatinine continues to go up scheduled to have dialysis in the next day or 2 A-fib rate controlled current medication will be continued no changes. Documentation for date of: 05/17/25 Subjective Subjective Interval history: Patient is seen and examined at bedside No acute overnight events. Denies any new complaints. Patient is alert awake and oriented, still on mechanical ventilator, AC mode, 50% FiO2, 8 PEEP Vitals are stable and patient is still in atrial fibrillation with controlled ventricular rate. Labs showed mildly elevated leukocytes, 24.8. Uptrending BUN, 120, creatinine 4.2 Patient agreed for hemodialysis and primary team might proceed with the hemodialysis Recommended to continue amiodarone for now Exam Vital Signs Temp Pulse Resp BP Pulse Ox O2 Del Method O2 Flow Rate 96.9 F 106 H 25 H 97/72 97 Mechanical Ventilation 10 05/17/25 16:00 05/17/25 16:00 05/17/25 16:00 05/17/25 16:00 05/17/25 16:00 05/17/25 16:00 05/17/25 16:00 FiO2 50 05/17/25 16:00 Narrative Exam General: Awake. obese HEENT: Normocephalic, atraumatic, mucous membranes moist. Heart: IRRegular rate and rhythm, no murmurs. Lungs: Clear to auscultation with no wheezing or crackles. But noted decreased breath sounds bilaterally in view of body habitus Abdomen: Soft, nondistended, nontender, positive bowel sounds. ?No guarding or rebound tenderness. Neurologic: Alert and oriented x3, no gross neurological deficit, and patient able to move all 4 extremities. Extremities: No edema. Skin: Large sacral ulcer in the gluteal region, Decubitus Grade III Objective Labs 05/17/25 07:45 05/17/25 07:45 Labs: Laboratory Results - last 24 hr 05/17/25 07:45 WBC 24.8 H RBC 2.50 L Hgb 7.1 L Hct 22.9 L MCV 92 MCH 28.4 MCHC 31.0 RDW Std Deviation 58.8 H Plt Count 445 H D Neut % (Auto) 66 Lymph % (Auto) 24 [place] % (Auto) 7 Eos % (Auto) 2 Baso % (Auto) 0 Neut # (Auto) 16.2 H Lymph # (Auto) 6.0 H [place] # (Auto) 1.7 H Eos # (Auto) 0.5 Baso # (Auto) 0.1 Immature Gran # (Auto) 0.38 H Absolute Nucleated RBC 0.00 Immature Gran % 2 H Nucleated RBC % 0 Sodium 141 Potassium 4.8 Chloride 99 Carbon Dioxide 26.1 Anion Gap 16 BUN 120 H* Creatinine 4.2 H* Estim Creat Clear Calc 28.9 L eGFR 15 L BUN/Creatinine Ratio 29 H Glucose 157 H Calculated Osmolality 322 H Calcium 9.0 Corrected Calcium 9.5 Phosphorus 5.7 H Magnesium 2.8 H Total Bilirubin 0.4 AST 20 ALT 16 Alkaline Phosphatase 251 H Total Protein 6.6 Albumin 3.4 Globulin 3.2 Albumin/Globulin Ratio 1.1 L ABG Interpretation ABG results: 04/18/25 04/18/25 04/18/25 04:40 06:27 10:30 ABG pH 7.28 L 7.33 L 7.36 ABG pCO2 72 H* 67 H 61 H ABG pO2 132 H 60 L D 60 L ABG HCO3 34 H 35 H 34 H ABG O2 Saturation 100 H 93 93 ABG Base Excess 6 H 7 H 8 H 04/19/25 05/10/25 08:53 07:40 ABG pH 7.47 H D 7.52 H ABG pCO2 45 D 40 ABG pO2 66 L 60 L ABG HCO3 33 H 32 H ABG O2 Saturation 96 94 ABG Base Excess 8 H 8 H Quality Measures Quality Measures VTE therapy Advance care planning discussed with:: patient Assessment & Plan Assessment Current Active Medications: Generic Name Dose Route Start Last Admin Trade Name Freq PRN Reason Stop Dose Admin Acetaminophen 650 mg 05/01/25 08:47 05/17/25 11:50 Acetaminophen 325 Mg Tablet PO 05/22/25 20:42 650 mg Q6HR PRN Administration pain 1-3 OR Fever >100.4 Acetylcysteine 3 ml 05/10/25 15:00 05/17/25 14:16 Acetylcysteine Rt Gloria 10% 4 Ml Nebu INH 06/09/25 14:59 3 ml Q8HRRT KOURTNEY Administration Albuterol/Ipratropium 3 ml 05/10/25 15:00 05/17/25 14:16 Albuterol/Ipratropium (Duoneb) Rt Gloria 3 Ml Nebu INH 06/09/25 14:59 3 ml Q8HRRT KOURTNEY Administration Amiodarone HCl 200 mg 05/12/25 13:45 05/17/25 08:02 Amiodarone Hcl 200 Mg Tablet GT 06/11/25 13:44 200 mg QDAY KOURTNEY Administration Ascorbic Acid 500 mg 04/17/25 21:00 05/17/25 08:03 Ascorbic Acid 250 Mg Tablet GT 05/17/25 20:59 500 mg BID KOURTNEY Administration Dextrose 25 ml 05/12/25 13:47 Dextrose 50%-Water Inj 50 Ml Syringe IV 06/11/25 13:46 Q15MIN PRN BG 50-70 responsive npo pt Dextrose 50 ml 05/12/25 13:48 Dextrose 50%-Water Inj 50 Ml Syringe IV 06/11/25 13:47 Q15MIN PRN BG <50 OR BG <70 & pt unresponsive Gabapentin 100 mg 05/11/25 14:05 05/17/25 14:32 Gabapentin 100 Mg Capsule PO 06/10/25 14:04 100 mg TID KOURTNEY Administration Glucagon 1 mg 05/12/25 13:49 Glucagon Inj 1 Mg Vial IM 06/11/25 13:48 Q15MIN PRN BG <70, and no IV access Albumin Human 25 gm in 100 mls @ 100 mls/min 04/24/25 11:52 Albuminar-25 Ivpb IV PRN PRN DIALYSIS Levofloxacin/Dextrose 750 mg in 150 mls @ 100 mls/hr 05/14/25 21:00 05/16/25 21:02 Levaquin Ivpb IV 05/21/25 20:59 100 mls/hr Q48HR@2100 KOURTNEY Administration Insulin Glargine 38 unit 05/13/25 09:00 05/17/25 08:03 Insulin Glargine (Lantus) 5 Unit/0.05 Ml (Per 5 Units) SC 06/12/25 08:59 38 unit QDAY KOURTNEY Administration Insulin Human Lispro 0 unit 05/12/25 18:00 05/17/25 17:53 Insulin Lispro (Admelog) 1 Unit/0.01 Ml Unit SC 06/11/25 17:59 2 unit Q6HR KOURTNEY Administration Protocol Lansoprazole 30 mg 05/05/25 09:00 05/17/25 08:02 Lansoprazole 30 Mg Tab. GT 06/04/25 08:59 30 mg QDAY KOURTNEY Administration Pharmacy Consult 1 each 04/24/25 08:43 Pharmacy Renal Dose Adjustment 1 Ea XX 05/24/25 08:42 PRN PRN CONSULT Pharmacy Consult 1 each 05/14/25 08:22 Pharmacy Renal Dose Adjustment 1 Ea XX 06/13/25 08:21 PRN PRN CONSULT Sennosides 2 tab 05/02/25 09:00 05/17/25 08:03 Senna Tablet GT 06/01/25 08:59 2 tab QDAY KOURTNEY Administration Protocol Sodium Hypochlorite 473 ml 05/06/25 21:00 05/17/25 14:32 Sod Hypochlorite 1/4 Str 473 Ml Btl IRRIG 06/05/25 20:59 1 applicatio BID KOURTNEY Administration Zinc Sulfate 220 mg 04/18/25 09:00 05/17/25 08:02 Zinc Sulfate 220 Mg Capsule GT 05/18/25 08:59 220 mg QDAY KOURTNEY Administration Plan 64-year-old male, Buddhist with a past medical history of hypertension, diabetes mellitus type 2, history of atrial fibrillation, CHF HFpEF 65%, grade 3 diastolic dysfunction, right heart failure, RSVP 47, moderate to severe ALB calsifications with no stenosis, status post tracheostomy, s/p PEG Tube at [facility], bariatric team, history of dyspahagia, extensive decubitus ulcers, CKD, history of anemia, history of Diego-en- Y gastric bypass, BASIA/OHS, and morbid obesity. Patient was upgraded to ICU for a third time with in acute respiratory respiratory failure secondary to mucous plug and shock, likely cardiogenic shock secondary to complete heart block requiring pressors and downgraded again # A-fib with RVR - s/p cardioversion ---> CVR # Bradycardia and questionable complete heart block, resolved - Patient was hypoxic and was transferred to the ICU on 05/09/2025. - Cardiology was consulted 05/09/2025 for significant bradycardia requiring external temporary transcutaneous pacing. - Plan was to place a temporary transvenous pacemaker if the patient continues to be bradycardic as he was 100% dependent on the transcutaneous pacing. - Bronchoscopy was performed which showed small mucous plug which was removed and patient rhythm was back to his atrial fibrillation with RVR. - Patient was on dopamine at that point of time. Patient blood pressure was on the lower side and was unstable and required cardioversion x 1. - Patient was on levophed and phenylephrine for a short period of time. - Patient is presently ventilator dependent and has a tracheostomy in place along with a jejunostomy. Plan - Recommend to continue telemetry monitoring - In view of ongoing sacral ulcer with recurrent infections, pacemaker placement cannot be done. But fortunately patient did not have any further episodes of bradycardia. So no need of pacemaker placement as of now - Recommended to continue amiodarone 200 Mg G-tube once daily - As patient had large decubitus ulcer and has tendency to bleed, anticoagulation is held for now # H/O CHF, HFpEF 65% #Diastolic dysfunction, grade 3 #Pulmonary hypertension #BASIA/OHS #Moderate to severe a AOV calcification with no stenosis #Moderate Right Pleural Effusion - Patient has a past medical history of right heart faillure, Diastolic dysfucntion, and HFpEF 65% likely in the setting of cardiomypoathy seconadary to morbid obesity form BASIA/OHS. - [place] 03/19/2025: RAP 8, PAP 27, PCWP 7. - Echo (04/29/2025): Normal LV size and function. Estimated EF of 65%. Grade III Diastolic Dysfunction.Right ventricle is dilated with mild RV dysfunction RVSP 47mmHg. RAP 15mmHg.Severe biatrial dilation.Moderate to Severe AOV calcification with no stenosis <ild tricuspid regurgitation. No pericardial effusion. - Echo (05/14/2025) : Normal LV size and function. Estimated EF is 55 to 60%. Severely RA dilated right ventricle as well as right atrium. IVS flattening noted both in systole and diastole indicating both pressure and volume overload Plan -Recommended to hold diuresis for now in view of uptrending BUN and creatinine -K >4 and Mg >2 #Acute on Chronic Respiratory Failure secondary to mucus plug #Healthcare-Associated Pneumonia #Leukocytosis #Large Sacral Decubitus Ulcer s/p excisional debridement (05/02/2025) #CKD stage III #Jejunostomy #History of abdominal abscess s/p percutaneous drainage #Diabetes Mellitus Type 2 non insulin depedent #Normocytic Anemia Management of rest of the medical conditions as per primary team and other consultants. Thank you for the consult and allowing us to participate in the care of the patient. Cardiology will continue to follow. Patient plan of care was discussed with [employer], Dr. Alvaro Ahumada, PGY2
[2025-05-18] VITALS (14 sets, daily range): BP systolic 96–130; BP diastolic 69–77; PULSE 71–112; RESP 17–35; TEMP 35.8–36.4; O2SAT 94–100; BMI 67.8
[2025-05-18] MEDS: INSULIN LISPRO (AdmeLOG) 1 UNIT/0.01 ML UNIT SC ×3 (00:05→17:37)
[2025-05-18] MEDS: GABAPENTIN 100 MG CAPSULE PO ×3 (05:31→21:38)
[2025-05-18 06:03] LABS: Basophils # (Auto) 0.1 Thou/mm3 (0.0-0.2); Basophils % (Auto) 0 % (0-2.5); Eosinophils # (Auto) 0.4 Thou/mm3 (0.0-0.5); Eosinophils % (Auto) 2 % (0-10); Hematocrit 23.4 % (41.0-53.0); Immature Granulocytes Auto 0.25 Thou/mm3 (0.00-0.00); Lymphocytes # (Auto) 3.7 Thou/mm3 (1.0-4.8); Lymphocytes % (Auto) 19 % (10-50); Mean Corpuscular HGB Conc 30.3 g/dl (31.0-37.0); Mean Corpuscular Hemoglobin 28.9 pg (25.0-35.0); Mean Corpuscular Volume 95 fL (80-100); Monocytes # (Auto) 1.6 Thou/mm3 (0.0-0.8); Monocytes % (Auto) 8 % (0-12); Neutrophils # (Auto) 13.2 Thou/mm3 (1.8-7.7); Neutrophils % (Auto) 69 % (37-80); Nucleated Red Blood Cell # 0.00 Thou/mm3 (0.00-0.00); Nucleated Red Blood Cell % 0 /100 WBC (0); Platelet Count 443 Thou/mm3 (140-440); RDW Standard Deviation 61.3 fL (35.1-43.9); Red Blood Count 2.46 Miln/mm3 (4.50-5.90); White Blood Count 19.2 Thou/mm3 (3.8-10.6)
[2025-05-18 06:07] LABS: Hemoglobin 7.1 g/dL (13.5-16.0)
[2025-05-18] MEDS: ACETYLCYSTEINE RT SOL 10% 4 ML NEBU 3 ML INH ×3 (06:45→23:25)
[2025-05-18] MEDS: ALBUTEROL/IPRATROPIUM (Duoneb) RT SOL 3 ML NEBU INH ×3 (06:45→23:25)
[2025-05-18 06:48] LABS: Alanine Aminotransferase 15 U/L (10-49); Albumin, Serum 3.4 gm/dL (3.4-4.8); Albumin/Globulin Ratio 1.1 (1.2-2.2); Alkaline Phosphatase 256 U/L (46-116); Anion Gap 17 (7-16); Aspartate Amino Transferase 20 U/L (0-34); BUN/Creatinine Ratio 28 Ratio (12-20); Bilirubin,Total 0.3 mg/dL (0.3-1.2); Calcium 9.1 mg/dL (8.3-10.6); Calcium (Corrected) 9.6 mg/dL (8.5-10.1); Carbon Dioxide 25.7 mMol/L (20.0-31.0); Chloride 99 mMol/L (98-107); Creatinine (Component) 4.3 mg/dL (0.6-1.3); Estimated Creatinine Clearance 28.3 mL/min (>60); Globulin 3.2 gm/dL (2.3-3.5); Glucose 160 mg/dL (74-106); Magnesium 2.8 mg/dL (1.6-2.6); Osmolality,Calculated 324 (275-295); Phosphorous 6.1 mg/dL (2.4-5.1); Potassium 4.8 mMol/L (3.4-5.1); Sodium 142 mMol/L (136-145); Total Protein 6.6 gm/dL (5.7-8.2); eGFR 15 See Note
[2025-05-18 06:51] LABS: Blood Urea Nitrogen 119 mg/dL (9-23)
[2025-05-18] MEDS: SOD HYPOCHLORITE 1/4 STR 473 ML BTL IRRIG ×2 (09:00→21:38)
[2025-05-18] MEDS: LANSOPRAZOLE 30 MG TAB.RAP.DR GT (09:02)
[2025-05-18] MEDS: INSULIN GLARGINE (Lantus) 5 UNIT/0.05 ML (PER 5 UNITS) 38 UNIT SC (09:02)
[2025-05-18] MEDS: AMIODARONE HCL 200 MG TABLET GT (09:02)
--- NOTE | 2025-05-18 15:41 | ESPR_ITS ---
Documentation for date of: 05/18/25 Subjective Subjective Interval history: The patient evaluated at bedside, reported no active complaints, urine output adequate, BUN 119, creatinine 4.3, renal function stable, electrolytes within normal range, mental status at baseline, per nephrology recommendations, continue with watchful observation, no indication for emergency dialysis at this moment. Will reevaluate tomorrow, we will proceed with hemodialysis if indicated. Exam Vital Signs Temp Pulse Resp BP Pulse Ox O2 Del Method O2 Flow Rate 97.6 F 97 23 H 130/69 100 Mechanical Ventilation 10 05/18/25 12:00 05/18/25 14:50 05/18/25 14:50 05/18/25 12:00 05/18/25 14:50 05/18/25 12:00 05/18/25 12:00 FiO2 50 05/18/25 14:50 Narrative Exam Physical Exam: Constitutional: Alert, oriented x 3 and no acute distress. Nods and expresses self to questions, writes on white board for communication. Elderly male, morbidly obese. HEENT: Vision grossly intact. Patent nares. Trachea midline. Tracheostomy tube in situ, exit site clean. Respiratory: Chest normal on inspection and decreased air entry in all lung sims, transmitted sounds and congestion on anterior chest wall, middle and upper lobes. Cardiovascular: S1 and S2 audible, RRR. No murmurs carotid bruit. No gross JVD. Abdominal: Soft, obese and non tender to palpation in all quadrants. BS +. Jejunostomy tube in situ, exit site clean Genitourinary: No bladder tenderness, no flank pain. Normal to palpation Musculoskeletal: Extremities tone within normal limits. Mild edema in right upper extremity, improved upon placing on pillow. No lower extremity edema bilaterally. Neurological: CN II - XII grossly intact. Extremity motor and sensation grossly intact. Extremities: 1+ pitting lower extremity edema bilaterally. Skin: Warm, dry and intact. Large sacral decubitus ulcer, necrotic tissue noted. No purulent drainage noted. Cleanly packed with dressings. Psychiatric: Patient has good affect, is cooperative Objective Labs 05/25/25 05:40 05/25/25 05:40 Labs: Laboratory Results - last 24 hr 05/18/25 04:45 WBC 19.2 H D RBC 2.46 L Hgb 7.1 L Hct 23.4 L MCV 95 MCH 28.9 MCHC 30.3 L RDW Std Deviation 61.3 H Plt Count 443 H Neut % (Auto) 69 Lymph % (Auto) 19 [place] % (Auto) 8 Eos % (Auto) 2 Baso % (Auto) 0 Neut # (Auto) 13.2 H Lymph # (Auto) 3.7 [place] # (Auto) 1.6 H Eos # (Auto) 0.4 Baso # (Auto) 0.1 Immature Gran # (Auto) 0.25 H Absolute Nucleated RBC 0.00 Immature Gran % 1 H Nucleated RBC % 0 Sodium 142 Potassium 4.8 Chloride 99 Carbon Dioxide 25.7 Anion Gap 17 H BUN 119 H* Creatinine 4.3 H* Estim Creat Clear Calc 28.3 L eGFR 15 L BUN/Creatinine Ratio 28 H Glucose 160 H Calculated Osmolality 324 H Calcium 9.1 Corrected Calcium 9.6 Phosphorus 6.1 H Magnesium 2.8 H Total Bilirubin 0.3 AST 20 ALT 15 Alkaline Phosphatase 256 H Total Protein 6.6 Albumin 3.4 Globulin 3.2 Albumin/Globulin Ratio 1.1 L ABG Interpretation ABG results: 04/18/25 04/18/25 04/18/25 04:40 06:27 10:30 ABG pH 7.28 L 7.33 L 7.36 ABG pCO2 72 H* 67 H 61 H ABG pO2 132 H 60 L D 60 L ABG HCO3 34 H 35 H 34 H ABG O2 Saturation 100 H 93 93 ABG Base Excess 6 H 7 H 8 H 04/19/25 05/10/25 08:53 07:40 ABG pH 7.47 H D 7.52 H ABG pCO2 45 D 40 ABG pO2 66 L 60 L ABG HCO3 33 H 32 H ABG O2 Saturation 96 94 ABG Base Excess 8 H 8 H Quality Measures Quality Measures VTE therapy Advance care planning discussed with:: patient Assessment & Plan Assessment Current Active Medications: Generic Name Dose Route Start Last Admin Trade Name Freq PRN Reason Stop Dose Admin Acetaminophen 650 mg 05/01/25 08:47 05/17/25 11:50 Acetaminophen 325 Mg Tablet PO 05/22/25 20:42 650 mg Q6HR PRN Administration pain 1-3 OR Fever >100.4 Acetylcysteine 3 ml 05/10/25 15:00 05/18/25 14:48 Acetylcysteine Rt Gloria 10% 4 Ml Nebu INH 06/09/25 14:59 3 ml Q8HRRT KOURTNEY Administration Albuterol/Ipratropium 3 ml 05/10/25 15:00 05/18/25 14:48 Albuterol/Ipratropium (Duoneb) Rt Gloria 3 Ml Nebu INH 06/09/25 14:59 3 ml Q8HRRT KOURTNEY Administration Amiodarone HCl 200 mg 05/12/25 13:45 05/18/25 09:02 Amiodarone Hcl 200 Mg Tablet GT 06/11/25 13:44 200 mg QDAY KOURTNEY Administration Dextrose 25 ml 05/12/25 13:47 Dextrose 50%-Water Inj 50 Ml Syringe IV 06/11/25 13:46 Q15MIN PRN BG 50-70 responsive npo pt Dextrose 50 ml 05/12/25 13:48 Dextrose 50%-Water Inj 50 Ml Syringe IV 06/11/25 13:47 Q15MIN PRN BG <50 OR BG <70 & pt unresponsive Gabapentin 100 mg 05/11/25 14:05 05/18/25 14:45 Gabapentin 100 Mg Capsule PO 06/10/25 14:04 100 mg TID KOURTNEY Administration Glucagon 1 mg 05/12/25 13:49 Glucagon Inj 1 Mg Vial IM 06/11/25 13:48 Q15MIN PRN BG <70, and no IV access Albumin Human 25 gm in 100 mls @ 100 mls/min 04/24/25 11:52 Albuminar-25 Ivpb IV PRN PRN DIALYSIS Levofloxacin/Dextrose 750 mg in 150 mls @ 100 mls/hr 05/14/25 21:00 05/16/25 21:02 Levaquin Ivpb IV 05/21/25 20:59 100 mls/hr Q48HR@2100 KOURTNEY Administration Insulin Glargine 38 unit 05/13/25 09:00 05/18/25 09:02 Insulin Glargine (Lantus) 5 Unit/0.05 Ml (Per 5 Units) SC 06/12/25 08:59 38 unit QDAY KOURTNEY Administration Insulin Human Lispro 0 unit 05/12/25 18:00 05/18/25 11:30 Insulin Lispro (Admelog) 1 Unit/0.01 Ml Unit SC 06/11/25 17:59 Not Given Q6HR [facility] Protocol Lansoprazole 30 mg 05/05/25 09:00 05/18/25 09:02 Lansoprazole 30 Mg Tab.Joshua. GT 06/04/25 08:59 30 mg QDAY KOURTNEY Administration Pharmacy Consult 1 each 04/24/25 08:43 Pharmacy Renal Dose Adjustment 1 Ea XX 05/24/25 08:42 PRN PRN CONSULT Pharmacy Consult 1 each 05/14/25 08:22 Pharmacy Renal Dose Adjustment 1 Ea XX 06/13/25 08:21 PRN PRN CONSULT Sennosides 2 tab 05/02/25 09:00 05/18/25 09:02 Senna Tablet GT 06/01/25 08:59 2 tab QDAY KOURTNEY Administration Protocol Sodium Hypochlorite 473 ml 05/06/25 21:00 05/18/25 09:00 Sod Hypochlorite / Str 473 Ml Btl IRRIG 06/05/25 20:59 1 applicatio BID KOURTNEY Administration Plan 64-year-old with morbid obesity with subsequent obesity hypoventilation syndrome requiring tracheostomy and J-tube placement, hypertension, type 2 diabetes, atrial fibrillation, right internal jugular DVT and acute kidney injury secondary to ischemic ATN requiring multiple sessions of hemodialysis and sacral ulcers status post wound VAC currently being treated for acute on chronic hypoxic respiratory failure, ischemic ATN. Pending placement at LTAC. #Acute kidney injury-suspicion of ischemic ATN, resolved #Fluid overload #Acute on chronic hypoxic respiratory failure, improving. 04/20 ? Attempt was made to place Fuller catheter however unable to pass catheter due to significant resistance and attempt was terminated. Discussed with nursing about possibility of weighing briefs daily. Patient had temporary hemodialysis catheter placed 04/24, receiving dialysis had 1 L removed on 04/24, 2 L on 04/25, 2.14 on 04/26, 2.1 L on 04/29; temporary dialysis catheter discontinued on 05/06 Patient being followed by nephrology, nephrology agrees with diuresis for now, will need close monitoring, poor candidate for dialysis due to body habitus and also has chronic anemia with wound bleeding from sacral region-software implementation specialist did discuss with patient in detail, he verbalizes understanding. Bumex held on 05/15 due to worsening creatinine, continues to worsen. Due to lack of improvement despite diuretic holiday, discussed with patient today need for hemodialysis in the near future. Patient initially refused but after multiple attempts of counseling and explaining risks and benefits, including , patient was eventually agreeable. Plan: -Continue to hold Bumex -Nephrology consulted, appreciate recommendations -Consider restarting on hemodialysis if worsen -Antibiotics as above -Monitor I&O's -Avoid nephrotoxic agents -Renally dose medication #Acute on Chronic Respiratory Failure secondary to mucous plug #Healthcare-Associated Pneumonia #Leukocytosis Patient noted to have acute on chronic respiratory failure, required bronchoscopy w/ mucous plugs removed. Previous sputum Pseudomnas (04/03/2025) 05/09/2025 Bronchial washing culture grew pseudomonas, sensitive to Zosyn Vancomycin (05/09/2025-05/12/25) and doxycycline (05/12-05/13) were discontinued due to nephrotoxicity. Completed Zosyn course (05/09-05/16/25) Of note, patient has history of Pseudomonnas infection Plan: -Continue Levofloxacin 750 mg every 48 hrs for 7 days due to concern for aspiration PNA (05/14/25- -Blow-by during the day, mechanical ventilation at night as needed at baseline, currently on mechanical ventilation -DuoNeb, Mucomyst and chest physiotherapy scheduled #Paroxysmal atrial fibrillation Per cardiology there is a concern of heart block, tachybradycardia syndrome as well. [id number] score of 3 points indicating 3.2% risk of stroke per year HAS-BLED: 3. High risk of major bleeding 05/13: Discussed with pharmacy delivery driver?will start on amiodarone previous dose, 200 mg daily. Per cardiology patient is a poor candidate for pacemaker placement, patient was informed at bedside by cardiology team. He verbalized understanding. Plan: - Continue p.o. amiodarone. - Cardiology consulted, appreciate recommendations - Patient will need anticoagulation, however has low hemoglobin, bleeding wound will defer anticoagulation for now. #Congestive heart failure, HFpEF 65% #Diastolic dysfunction, grade 3 #Pulmonary hypertension #Right heart failure #BASIA/OHS #Moderate to severe a AOV calcification with no stenosis Patient has a past medical history of right heart faillure, Diastolic dysfucntion, and HFpEF 65% likely in the setting of cardiomypoathy seconadary to morbid obesity form BASIA/OHS. Given Cxr noted with prominent vascular congestion, consider repeat BNP, although hemodynamically unstable given pressors but may consider. No pheriphearl edema noted. Cxr (05/09/2025): Mild Heart Failure, Prominent vascular congestion and Moderate to large right pleural effusion Echo (04/29/2025): Normal LV size and function. Estimated EF of 65%. Grade III Diastolic Dysfunction.Right ventricle is dilated with mild RV dysfunction RVSP 47mmHg. RAP 15mmHg.Severe biatrial dilation.Moderate to Severe AOV calcification with no stenosis <ild tricuspid regurgitation. No pericardial effusion. Plan -Continue holding Bumex -Recommended patient to sit up in bed to help relieve IVC pressure -Cardiology consulted -Patient 1500 cc/day fluid restriction, daily weights, tube feeds resumed -K >4 and Mg >2 #Decubitus ulcer status post excisional debridement of sacral decubitus ulcer Recent debridement of large decubitus ulcer on 05/02/2025 likely secondary to morbid obestiy and lack of mobility. 04/29: excisional debridement of sacral decubitus ulcer, washout and placement of wound VAC. 05/02: Patient had significant bleeding overnight, wound VAC leaked. Hemoglobin stable this morning, patient's bleeding from wound overnight was controlled with suture ligation. Wound was assessed by general surgeon, patient was transitioned back to red dry dressings daily. Plan: -Continue wound care #Jejunostomy tube #Abdominal abscess - resolved Patient report said that there was an intra-abdominal abscess that have could have been from a perforated ulcer in the past See also note reviewed, mentions that patient likely had a marginal ulcer, but also was not seen on EGD without, currently patient has no abdominal tenderness and is totally asymptomatic. No current drain at this time Patient is status post laparoscopic J-tube placement and is currently on feeds Patient will continue to have this tube and will likely go to a long-term care facility with this until patient can swallow safely Plan: ? Monitor vitals closely #Normocytic normochromic anemia Multifactorial. Patient's baseline hemoglobin throughout the hospitalization has been in the range 9?11, patient did have some bleeding from wound VAC site on 05/02 which was controlled by suture ligation by general surgery. Had recurrent bleeding and eventually heparin drip was held. - Patient is a [employer], denies any blood transfusion/blood products - Will repeat CBC as needed #Right internal jugular venous thrombosis #Right arm swelling Continuing free water flushes, patient has gone multiple days of heparin drip since 04/01 Right upper extremity ultrasound May 04-shows right IJ thrombus Plan: ? Continue to hold heparin drip due to recurrent sacral ulcer bleeding #Morbid obesity #DM2 A1C 7.6 on 03/05/2025 Patient has a BMI of 79.5->68.7 Attempted to prescribe tirzepatide to outside pharmacy to bring inpatient however no one is able to pick it up for the patient. Plan: - ISS scale 2 - Hypoglycemia protocol - 38 units of Lantus. Health Maintenance Disposition: Telemetry DVT prophylaxis: None, patient is Lutheran and has a bleeding sacral wound GI prophylaxis: Protonix Diet: 2Cal Tube Feeds with 30 cc/hour water flush CODE STATUS: Full code Patient plan of care was discussed with attending physician, Dr. Mendoza. Ekaterina PGY3 Attending Provider Attestation/Addendum 64-year-old with morbid obesity with subsequent obesity hypoventilation syndrome requiring tracheostomy and J-tube placement, hypertension, type 2 diabetes, atrial fibrillation, right internal jugular DVT and acute kidney injury secondary to ischemic ATN requiring multiple sessions of hemodialysis and sacral ulcers status post wound VAC currently being treated for acute on chronic hypoxic respiratory failure, ischemic ATN. Overnight, patient noted to have significant bleeding from decubitus ulcer and subsequently general surgery was consulted and heparin drip was discontinued. Talked with the patient regarding discontinuation of heparin drip and given that he has a right internal jugular DVT and atrial fibrillation and updated him that he is at risk for strokes and worsening disease progression however he is in agreement to stop the heparin drip for now. In addition, patient is also a Lutheran and refusing blood product and I counseled him regarding need of blood product and risk of not getting it including worsening disease progression which can lead to cardiac arrest and however he understands and continues to refuse for which we will respect his decision. As of now, patient kidney function continues to worsen and likely will need hemodialysis. Anemia is stable and patient appears to be stable on mechanical ventilation with stable setting. I reviewed above note and agree with findings and plans. I have also personally examined the patient with medicine team and went over assessment and plan with medical team including business development intern and resident physician.
--- NOTE | 2025-05-18 16:56 | ESPR_ITS ---
<Statement entered by Lenora John MD - 05/18/25 18:58> I personally examined the patient evaluated the patient appears to be clinically doing fairly well but awaiting dialysis for A-fib rate controlled well does not complain of any chest pain shortness of breath heart failure well compensated. Documentation for date of: 05/18/25 Subjective Subjective Interval history: Patient is seen and examined at bedside No acute overnight events. Patient denies any new complaints On mechanical ventilator, VC mode, 45% FiO2, PEEP 8, tidal volume 500 mL Vitals are stable and patient is still in atrial fibrillation with controlled ventricular rate Diuretics were held as patient appeared euvolemic Labs showed still uptrending BUN and creatinine Nephrology is following and recommended observation for now as patient is clinically stable despite of uremia Recommended to continue amiodarone for now Exam Vital Signs Temp Pulse Resp BP Pulse Ox O2 Del Method O2 Flow Rate 96.9 F 106 H 17 113/77 98 Mechanical Ventilation 10 05/18/25 16:00 05/18/25 16:00 05/18/25 16:00 05/18/25 16:00 05/18/25 16:00 05/18/25 16:00 05/18/25 16:00 FiO2 50 05/18/25 16:00 Narrative Exam General: Awake. obese HEENT: Normocephalic, atraumatic, mucous membranes moist. Heart: IRRegular rate and rhythm, no murmurs. Lungs: Clear to auscultation with no wheezing or crackles. But noted decreased breath sounds bilaterally in view of body habitus Abdomen: Soft, nondistended, nontender, positive bowel sounds. ?No guarding or rebound tenderness. Neurologic: Alert and oriented x3, no gross neurological deficit, and patient able to move all 4 extremities. Extremities: No edema. Skin: Large sacral ulcer in the gluteal region, Decubitus Grade III/IV Objective Labs 05/18/25 04:45 05/18/25 04:45 Labs: Laboratory Results - last 24 hr 05/18/25 04:45 WBC 19.2 H D RBC 2.46 L Hgb 7.1 L Hct 23.4 L MCV 95 MCH 28.9 MCHC 30.3 L RDW Std Deviation 61.3 H Plt Count 443 H Neut % (Auto) 69 Lymph % (Auto) 19 [place] % (Auto) 8 Eos % (Auto) 2 Baso % (Auto) 0 Neut # (Auto) 13.2 H Lymph # (Auto) 3.7 [place] # (Auto) 1.6 H Eos # (Auto) 0.4 Baso # (Auto) 0.1 Immature Gran # (Auto) 0.25 H Absolute Nucleated RBC 0.00 Immature Gran % 1 H Nucleated RBC % 0 Sodium 142 Potassium 4.8 Chloride 99 Carbon Dioxide 25.7 Anion Gap 17 H BUN 119 H* Creatinine 4.3 H* Estim Creat Clear Calc 28.3 L eGFR 15 L BUN/Creatinine Ratio 28 H Glucose 160 H Calculated Osmolality 324 H Calcium 9.1 Corrected Calcium 9.6 Phosphorus 6.1 H Magnesium 2.8 H Total Bilirubin 0.3 AST 20 ALT 15 Alkaline Phosphatase 256 H Total Protein 6.6 Albumin 3.4 Globulin 3.2 Albumin/Globulin Ratio 1.1 L ABG Interpretation ABG results: 04/18/25 04/18/25 04/18/25 04:40 06:27 10:30 ABG pH 7.28 L 7.33 L 7.36 ABG pCO2 72 H* 67 H 61 H ABG pO2 132 H 60 L D 60 L ABG HCO3 34 H 35 H 34 H ABG O2 Saturation 100 H 93 93 ABG Base Excess 6 H 7 H 8 H 04/19/25 05/10/25 08:53 07:40 ABG pH 7.47 H D 7.52 H ABG pCO2 45 D 40 ABG pO2 66 L 60 L ABG HCO3 33 H 32 H ABG O2 Saturation 96 94 ABG Base Excess 8 H 8 H Quality Measures Quality Measures VTE therapy Advance care planning discussed with:: patient Assessment & Plan Assessment Current Active Medications: Generic Name Dose Route Start Last Admin Trade Name Freq PRN Reason Stop Dose Admin Acetaminophen 650 mg 05/01/25 08:47 05/17/25 11:50 Acetaminophen 325 Mg Tablet PO 05/22/25 20:42 650 mg Q6HR PRN Administration pain 1-3 OR Fever >100.4 Acetylcysteine 3 ml 05/10/25 15:00 05/18/25 14:48 Acetylcysteine Rt Gloria 10% 4 Ml Nebu INH 06/09/25 14:59 3 ml Q8HRRT KOURTNEY Administration Albuterol/Ipratropium 3 ml 05/10/25 15:00 05/18/25 14:48 Albuterol/Ipratropium (Duoneb) Rt Gloria 3 Ml Nebu INH 06/09/25 14:59 3 ml Q8HRRT KOURTNEY Administration Amiodarone HCl 200 mg 05/12/25 13:45 05/18/25 09:02 Amiodarone Hcl 200 Mg Tablet GT 06/11/25 13:44 200 mg QDAY KOURTNEY Administration Dextrose 25 ml 05/12/25 13:47 Dextrose 50%-Water Inj 50 Ml Syringe IV 06/11/25 13:46 Q15MIN PRN BG 50-70 responsive npo pt Dextrose 50 ml 05/12/25 13:48 Dextrose 50%-Water Inj 50 Ml Syringe IV 06/11/25 13:47 Q15MIN PRN BG <50 OR BG <70 & pt unresponsive Gabapentin 100 mg 05/11/25 14:05 05/18/25 14:45 Gabapentin 100 Mg Capsule PO 06/10/25 14:04 100 mg TID KOURTNEY Administration Glucagon 1 mg 05/12/25 13:49 Glucagon Inj 1 Mg Vial IM 06/11/25 13:48 Q15MIN PRN BG <70, and no IV access Albumin Human 25 gm in 100 mls @ 100 mls/min 04/24/25 11:52 Albuminar-25 Ivpb IV PRN PRN DIALYSIS Levofloxacin/Dextrose 750 mg in 150 mls @ 100 mls/hr 05/14/25 21:00 05/16/25 21:02 Levaquin Ivpb IV 05/21/25 20:59 100 mls/hr Q48HR@2100 KOURTNEY Administration Insulin Glargine 38 unit 05/13/25 09:00 05/18/25 09:02 Insulin Glargine (Lantus) 5 Unit/0.05 Ml (Per 5 Units) SC 06/12/25 08:59 38 unit QDAY KOURTNEY Administration Insulin Human Lispro 0 unit 05/12/25 18:00 05/18/25 11:30 Insulin Lispro (Admelog) 1 Unit/0.01 Ml Unit SC 06/11/25 17:59 Not Given Q6HR KOURTNEY Protocol Lansoprazole 30 mg 05/05/25 09:00 05/18/25 09:02 Lansoprazole 30 Mg Tab.Rap.Dr DUARTE 06/04/25 08:59 30 mg QDAY KOURTNEY Administration Pharmacy Consult 1 each 04/24/25 08:43 Pharmacy Renal Dose Adjustment 1 Ea XX 05/24/25 08:42 PRN PRN CONSULT Pharmacy Consult 1 each 05/14/25 08:22 Pharmacy Renal Dose Adjustment 1 Ea XX 06/13/25 08:21 PRN PRN CONSULT Sennosides 2 tab 05/02/25 09:00 05/18/25 09:02 Senna Tablet GT 06/01/25 08:59 2 tab QDAY KOURTNEY Administration Protocol Sodium Hypochlorite 473 ml 05/06/25 21:00 05/18/25 09:00 Sod Hypochlorite 1/4 Str 473 Ml Btl IRRIG 06/05/25 20:59 1 applicatio BID KOURTNEY Administration Plan 64-year-old male, Mandaeism with a past medical history of hypertension, diabetes mellitus type 2, history of atrial fibrillation, CHF HFpEF 65%, grade 3 diastolic dysfunction, right heart failure, RSVP 47, moderate to severe ALB calsifications with no stenosis, status post tracheostomy, s/p PEG Tube at [facility], bariatric team, history of dyspahagia, extensive decubitus ulcers, CKD, history of anemia, history of Diego-en- Y gastric bypass, BASIA/OHS, and morbid obesity. Patient was upgraded to ICU for a third time with in acute respiratory respiratory failure secondary to mucous plug and shock, likely cardiogenic shock secondary to complete heart block requiring pressors and downgraded again # A-fib with RVR - s/p cardioversion ---> CVR # Bradycardia and questionable complete heart block, resolved - Patient was hypoxic and was transferred to the ICU on 05/09/2025. - Cardiology was consulted 05/09/2025 for significant bradycardia requiring external temporary transcutaneous pacing. - Plan was to place a temporary transvenous pacemaker if the patient continues to be bradycardic as he was 100% dependent on the transcutaneous pacing. - Bronchoscopy was performed which showed small mucous plug which was removed and patient rhythm was back to his atrial fibrillation with RVR. - Patient was on dopamine at that point of time. Patient blood pressure was on the lower side and was unstable and required cardioversion x 1. - Patient was on levophed and phenylephrine for a short period of time. - Patient is presently ventilator dependent and has a tracheostomy in place along with a jejunostomy. Plan - Recommend to continue telemetry monitoring - In view of ongoing sacral ulcer with recurrent infections, pacemaker placement cannot be done. But fortunately patient did not have any further episodes of bradycardia. So no need of pacemaker placement as of now - Recommended to continue amiodarone 200 Mg G-tube once daily - As patient had large decubitus ulcer and has tendency to bleed, anticoagulation is held for now # H/O CHF, HFpEF 65% #Diastolic dysfunction, grade 3 #Pulmonary hypertension #BASIA/OHS #Moderate to severe a AOV calcification with no stenosis #Moderate Right Pleural Effusion - Patient has a past medical history of right heart faillure, Diastolic dysfucntion, and HFpEF 65% likely in the setting of cardiomypoathy seconadary to morbid obesity form BASIA/OHS. - [place] [facility] 03/19/2025: RAP 8, PAP 27, PCWP 7. - Echo (04/29/2025): Normal LV size and function. Estimated EF of 65%. Grade III Diastolic Dysfunction.Right ventricle is dilated with mild RV dysfunction RVSP 47mmHg. RAP 15mmHg.Severe biatrial dilation.Moderate to Severe AOV calcification with no stenosis <ild tricuspid regurgitation. No pericardial effusion. - Echo (05/14/2025) : Normal LV size and function. Estimated EF is 55 to 60%. Severely RA dilated right ventricle as well as right atrium. IVS flattening noted both in systole and diastole indicating both pressure and volume overload Plan -Recommended to hold diuresis for now in view of uptrending BUN and creatinine -K >4 and Mg >2 #Acute on Chronic Respiratory Failure secondary to mucus plug #Healthcare-Associated Pneumonia #Leukocytosis #Large Sacral Decubitus Ulcer s/p excisional debridement (05/02/2025) #CKD stage III #Jejunostomy #History of abdominal abscess s/p percutaneous drainage #Diabetes Mellitus Type 2 non insulin depedent #Normocytic Anemia Management of rest of the medical conditions as per primary team and other consultants. Thank you for the consult and allowing us to participate in the care of the patient. Cardiology will continue to follow. Patient plan of care was discussed with Pharmacy Technology Instructor, Dr. Alvaro Ahumada, PGY2
[2025-05-18] MEDS: HYDROcodone/APAP 7.5/325 TABLET 1 TAB PO (19:22)
[2025-05-18] MEDS: LEVOFLOXACIN/D5W 750MG IVPB 750 MG/150 ML BAG 100 MG IV (21:37)
[2025-05-19] VITALS (11 sets, daily range): BP systolic 87–111; BP diastolic 65–79; PULSE 84–124; RESP 12–40; TEMP 35.9–36.1; O2SAT 95–100; BMI 67.8
[2025-05-19] MEDS: GABAPENTIN 100 MG CAPSULE PO ×3 (05:32→21:31)
[2025-05-19] MEDS: INSULIN LISPRO (AdmeLOG) 1 UNIT/0.01 ML UNIT SC ×4 (05:32→23:16)
[2025-05-19 06:18] LABS: Basophils # (Auto) 0.0 Thou/mm3 (0.0-0.2); Basophils % (Auto) 0 % (0-2.5); Eosinophils # (Auto) 0.7 Thou/mm3 (0.0-0.5); Eosinophils % (Auto) 4 % (0-10); Hematocrit 23.6 % (41.0-53.0); Immature Granulocytes Auto 0.26 Thou/mm3 (0.00-0.00); Lymphocytes # (Auto) 4.4 Thou/mm3 (1.0-4.8); Lymphocytes % (Auto) 25 % (10-50); Mean Corpuscular HGB Conc 30.9 g/dl (31.0-37.0); Mean Corpuscular Hemoglobin 28.5 pg (25.0-35.0); Mean Corpuscular Volume 92 fL (80-100); Monocytes # (Auto) 1.6 Thou/mm3 (0.0-0.8); Monocytes % (Auto) 9 % (0-12); Neutrophils # (Auto) 11.0 Thou/mm3 (1.8-7.7); Neutrophils % (Auto) 61 % (37-80); Nucleated Red Blood Cell # 0.00 Thou/mm3 (0.00-0.00); Nucleated Red Blood Cell % 0 /100 WBC (0); Platelet Count 477 Thou/mm3 (140-440); RDW Standard Deviation 58.9 fL (35.1-43.9); Red Blood Count 2.56 Miln/mm3 (4.50-5.90); White Blood Count 18.0 Thou/mm3 (3.8-10.6)
[2025-05-19 06:20] LABS: Hemoglobin 7.3 g/dL (13.5-16.0)
[2025-05-19] MEDS: ALBUTEROL/IPRATROPIUM (Duoneb) RT SOL 3 ML NEBU INH ×3 (06:40→23:58)
[2025-05-19] MEDS: ACETYLCYSTEINE RT SOL 10% 4 ML NEBU 3 ML INH ×3 (06:40→23:58)
[2025-05-19 06:59] LABS: Alanine Aminotransferase 15 U/L (10-49); Albumin, Serum 3.5 gm/dL (3.4-4.8); Albumin/Globulin Ratio 1.1 (1.2-2.2); Alkaline Phosphatase 247 U/L (46-116); Anion Gap 13 (7-16); Aspartate Amino Transferase 18 U/L (0-34); BUN/Creatinine Ratio 29 Ratio (12-20); Bilirubin,Total 0.3 mg/dL (0.3-1.2); Calcium 9.3 mg/dL (8.3-10.6); Calcium (Corrected) 9.7 mg/dL (8.5-10.1); Carbon Dioxide 26.9 mMol/L (20.0-31.0); Chloride 101 mMol/L (98-107); Creatinine (Component) 4.4 mg/dL (0.6-1.3); Estimated Creatinine Clearance 27.6 mL/min (>60); Globulin 3.2 gm/dL (2.3-3.5); Glucose 177 mg/dL (74-106); Magnesium 2.9 mg/dL (1.6-2.6); Osmolality,Calculated 326 (275-295); Phosphorous 6.2 mg/dL (2.4-5.1); Potassium 5.0 mMol/L (3.4-5.1); Sodium 141 mMol/L (136-145); Total Protein 6.7 gm/dL (5.7-8.2); eGFR 14 See Note
[2025-05-19 07:01] LABS: Blood Urea Nitrogen 128 mg/dL (9-23)
[2025-05-19] MEDS: LANSOPRAZOLE 30 MG TAB.RAP.DR GT (08:29)
[2025-05-19] MEDS: AMIODARONE HCL 200 MG TABLET GT (08:34)
[2025-05-19] MEDS: INSULIN GLARGINE (Lantus) 5 UNIT/0.05 ML (PER 5 UNITS) 38 UNIT SC (08:39)
[2025-05-19] MEDS: HYDROcodone/APAP 7.5/325 TABLET 1 TAB PO (14:34)
[2025-05-19] MEDS: SOD HYPOCHLORITE 1/4 STR 473 ML BTL IRRIG ×2 (14:35→21:29)
--- NOTE | 2025-05-19 15:44 | ESPR_ITS ---
<Statement entered by Lenora John MD - 05/22/25 00:09> I personally examined evaluated the patient with PGY 2 Dr. Sanchez patient continues to be having severe renal problems renal insufficiency stage V clinically appears to be not decompensated A-fib rate controlled well patient may require dialysis possibly on Tuesday or after dialysis catheter was placed by radiologist I agree with the treatment plan recommendation as documented by Dr. Sanchez Documentation for date of: 05/19/25 Subjective Subjective Interval history: Pt is seen at bedside, currently receiving chest physiotherapy and breathing treatment. Denies any cardiac symptoms. Due to worsening kidney function, pt will undergo tunneled dialysis cath tomorrow and then a dialysis session creatinine 4.4, Bun 128, GFR 14, Hgb is stable at 7.3, WBX is downtrending to 18.0 Exam Vital Signs Temp Pulse Resp BP Pulse Ox O2 Del Method O2 Flow Rate 97.0 F 109 H 22 H 95/65 100 Mechanical Ventilation 10 05/19/25 12:00 05/19/25 14:05 05/19/25 14:05 05/19/25 12:00 05/19/25 14:05 05/19/25 12:00 05/19/25 12:00 FiO2 45 05/19/25 14:05 Narrative Exam General: Awake. obese HEENT: Normocephalic, atraumatic, mucous membranes moist. Heart: IRRegular rate and rhythm, no murmurs. Lungs: Clear to auscultation with no wheezing or crackles. But noted decreased breath sounds bilaterally in view of body habitus Abdomen: Soft, nondistended, nontender, positive bowel sounds. ?No guarding or rebound tenderness. Neurologic: Alert and oriented x3, no gross neurological deficit, and patient able to move all 4 extremities. Extremities: No edema. Skin: Large sacral ulcer in the gluteal region, Decubitus Grade III/IV Objective Labs 05/19/25 05:45 05/19/25 05:45 Labs: Laboratory Results - last 24 hr 05/19/25 05:45 WBC 18.0 H RBC 2.56 L Hgb 7.3 L Hct 23.6 L MCV 92 MCH 28.5 MCHC 30.9 L RDW Std Deviation 58.9 H Plt Count 477 H D Neut % (Auto) 61 Lymph % (Auto) 25 Alpine % (Auto) 9 Eos % (Auto) 4 Baso % (Auto) 0 Neut # (Auto) 11.0 H Lymph # (Auto) 4.4 Alpine # (Auto) 1.6 H Eos # (Auto) 0.7 H Baso # (Auto) 0.0 Immature Gran # (Auto) 0.26 H Absolute Nucleated RBC 0.00 Immature Gran % 1 H Nucleated RBC % 0 Sodium 141 Potassium 5.0 Chloride 101 Carbon Dioxide 26.9 Anion Gap 13 BUN 128 H* Creatinine 4.4 H* Estim Creat Clear Calc 27.6 L eGFR 14 L* BUN/Creatinine Ratio 29 H Glucose 177 H Calculated Osmolality 326 H Calcium 9.3 Corrected Calcium 9.7 Phosphorus 6.2 H Magnesium 2.9 H Total Bilirubin 0.3 AST 18 ALT 15 Alkaline Phosphatase 247 H Total Protein 6.7 Albumin 3.5 Globulin 3.2 Albumin/Globulin Ratio 1.1 L ABG Interpretation ABG results: 04/18/25 04/18/25 04/18/25 04:40 06:27 10:30 ABG pH 7.28 L 7.33 L 7.36 ABG pCO2 72 H* 67 H 61 H ABG pO2 132 H 60 L D 60 L ABG HCO3 34 H 35 H 34 H ABG O2 Saturation 100 H 93 93 ABG Base Excess 6 H 7 H 8 H 04/19/25 05/10/25 08:53 07:40 ABG pH 7.47 H D 7.52 H ABG pCO2 45 D 40 ABG pO2 66 L 60 L ABG HCO3 33 H 32 H ABG O2 Saturation 96 94 ABG Base Excess 8 H 8 H Quality Measures Quality Measures VTE therapy Advance care planning discussed with:: other Assessment & Plan Assessment Current Active Medications: Generic Name Dose Route Start Last Admin Trade Name Freq PRN Reason Stop Dose Admin Acetaminophen 650 mg 05/01/25 08:47 05/17/25 11:50 Acetaminophen 325 Mg Tablet PO 05/22/25 20:42 650 mg Q6HR PRN Administration pain 1-3 OR Fever >100.4 Hydrocodone Bitart/Acetaminophen 1 tab 05/18/25 19:07 05/19/25 14:34 Hydrocodone/Apap 7.5/325 Tablet PO 05/23/25 19:06 1 tab Q6HR PRN Administration PAIN SCALE 4-10(Mod-Sev Acetylcysteine 3 ml 05/10/25 15:00 05/19/25 14:02 Acetylcysteine Rt Gloria 10% 4 Ml Nebu INH 06/09/25 14:59 3 ml Q8HRRT KOURTNEY Administration Albuterol/Ipratropium 3 ml 05/10/25 15:00 05/19/25 14:02 Albuterol/Ipratropium (Duoneb) Rt Gloria 3 Ml Nebu INH 06/09/25 14:59 3 ml Q8HRRT KOURTNEY Administration Amiodarone HCl 200 mg 05/12/25 13:45 05/19/25 08:34 Amiodarone Hcl 200 Mg Tablet GT 06/11/25 13:44 200 mg QDAY KOURTNEY Administration Dextrose 25 ml 05/12/25 13:47 Dextrose 50%-Water Inj 50 Ml Syringe IV 06/11/25 13:46 Q15MIN PRN BG 50-70 responsive npo pt Dextrose 50 ml 05/12/25 13:48 Dextrose 50%-Water Inj 50 Ml Syringe IV 06/11/25 13:47 Q15MIN PRN BG <50 OR BG <70 & pt unresponsive Gabapentin 100 mg 05/11/25 14:05 05/19/25 14:35 Gabapentin 100 Mg Capsule PO 06/10/25 14:04 100 mg TID KOURTNEY Administration Glucagon 1 mg 05/12/25 13:49 Glucagon Inj 1 Mg Vial IM 06/11/25 13:48 Q15MIN PRN BG <70, and no IV access Albumin Human 25 gm in 100 mls @ 100 mls/min 04/24/25 11:52 Albuminar-25 Ivpb IV PRN PRN DIALYSIS Levofloxacin/Dextrose 750 mg in 150 mls @ 100 mls/hr 05/14/25 21:00 05/18/25 21:37 Levaquin Ivpb IV 05/21/25 20:59 100 mls/hr Q48HR@2100 KOURTNEY Administration Insulin Glargine 38 unit 05/13/25 09:00 05/19/25 08:39 Insulin Glargine (Lantus) 5 Unit/0.05 Ml (Per 5 Units) SC 06/12/25 08:59 38 unit QDAY KOURTNEY Administration Insulin Human Lispro 0 unit 05/12/25 18:00 05/19/25 12:00 Insulin Lispro (Admelog) 1 Unit/0.01 Ml Unit SC 06/11/25 17:59 2 unit Q6HR KOURTNEY Administration Protocol Lansoprazole 30 mg 05/05/25 09:00 05/19/25 08:29 Lansoprazole 30 Mg Tab. GT 06/04/25 08:59 30 mg QDAY KOURTNEY Administration Pharmacy Consult 1 each 04/24/25 08:43 Pharmacy Renal Dose Adjustment 1 Ea XX 05/24/25 08:42 PRN PRN CONSULT Pharmacy Consult 1 each 05/14/25 08:22 Pharmacy Renal Dose Adjustment 1 Ea XX 06/13/25 08:21 PRN PRN CONSULT Sennosides 2 tab 05/02/25 09:00 05/19/25 08:28 Senna Tablet GT 06/01/25 08:59 2 tab QDAY KOURTNEY Administration Protocol Sodium Hypochlorite 473 ml 05/06/25 21:00 05/19/25 14:35 Sod Hypochlorite 1/4 Str 473 Ml Btl IRRIG 06/05/25 20:59 1 applicatio BID KOURTNEY Administration Plan Mr. Ortega is a 64-year-old male, [place] with a past medical history of hypertension, diabetes mellitus type 2, history of atrial fibrillation, CHF HFpEF 65%, grade 3 diastolic dysfunction, right heart failure, RSVP 47, moderate to severe ALB calsifications with no stenosis, status post tracheostomy, s/p PEG Tube at [facility], bariatric team, history of dyspahagia, extensive decubitus ulcers, CKD, history of anemia, history of Diego-en- Y gastric bypass, BASIA/OHS, and morbid obesity. Patient was upgraded to ICU for a third time with in acute respiratory respiratory failure secondary to mucous plug and shock, likely cardiogenic shock secondary to complete heart block requiring pressors and downgraded again # A-fib with RVR - s/p cardioversion ---> CVR # Bradycardia and questionable complete heart block, resolved - Patient was hypoxic and was transferred to the ICU on 05/09/2025. - Cardiology was consulted 05/09/2025 for significant bradycardia requiring external temporary transcutaneous pacing. - Plan was to place a temporary transvenous pacemaker if the patient continues to be bradycardic as he was 100% dependent on the transcutaneous pacing. - Bronchoscopy was performed which showed small mucous plug which was removed and patient rhythm was back to his atrial fibrillation with RVR. - Patient was on dopamine at that point of time. Patient blood pressure was on the lower side and was unstable and required cardioversion x 1. - Patient was on levophed and phenylephrine for a short period of time. - Patient is presently ventilator dependent and has a tracheostomy in place along with a jejunostomy. Plan - Recommend to continue telemetry monitoring - In view of ongoing sacral ulcer with recurrent infections, pacemaker placement cannot be done. But fortunately patient did not have any further episodes of bradycardia. So no need of pacemaker placement as of now - Recommended to continue amiodarone 200 Mg G-tube once daily - As patient had large decubitus ulcer and has tendency to bleed, anticoagulation is held for now # H/O CHF, HFpEF 65% #Diastolic dysfunction, grade 3 #Pulmonary hypertension #BASIA/OHS #Moderate to severe a AOV calcification with no stenosis #Moderate Right Pleural Effusion - Patient has a past medical history of right heart failure, Diastolic dysfunction, and HFpEF 65% likely in the setting of cardiomypoathy secondary to morbid obesity form BASIA/OHS. - [place] [facility] 03/19/2025: RAP 8, PAP 27, PCWP 7. - Echo (04/29/2025): Normal LV size and function. Estimated EF of 65%. Grade III Diastolic Dysfunction.Right ventricle is dilated with mild RV dysfunction RVSP 47mmHg. RAP 15mmHg.Severe biatrial dilation.Moderate to Severe AOV calcification with no stenosis <ild tricuspid regurgitation. No pericardial effusion. - Echo (05/14/2025) : Normal LV size and function. Estimated EF is 55 to 60%. Severely RA dilated right ventricle as well as right atrium. IVS flattening noted both in systole and diastole indicating both pressure and volume overload Plan -Recommended to hold diuresis for now in view of uptrending BUN and creatinine -Pt will be getting dialysis tomorrow 05/20/25 -K >4 and Mg >2 #Acute on Chronic Respiratory Failure secondary to mucus plug #Healthcare-Associated Pneumonia #Leukocytosis #Large Sacral Decubitus Ulcer s/p excisional debridement (05/02/2025) #CKD stage III #Jejunostomy #History of abdominal abscess s/p percutaneous drainage #Diabetes Mellitus Type 2 non insulin depedent #Normocytic Anemia Management of rest of the medical conditions as per primary team and other consultants. Thank you for the consult and allowing us to participate in the care of the patient. Cardiology will continue to follow. Assessment and plan discussed with my attending physician Dr. Alvaro Sanchez (PGY-2)- Internal medicine resident
--- NOTE | 2025-05-19 17:28 | PD.RESPRO ---
Documentation for date of: 05/19/25 Subjective Subjective Interval history: The patient evaluated at bedside, reported no active complaints, urine output adequate, serum electrolytes within normal range, sodium 141 potassium 5.0, no acidosis noted, BUN elevated at 128, creatinine uptrending 4.4, noted downtrending WBC count, patient continues to be treated for Pseudomonas pneumonia with levofloxacin, watchful observation for ATN progressing to ESRD, did increase patient's free water flushes to 70 mL/h, will reevaluate tomorrow, if need for hemodialysis. Exam Vital Signs Temp Pulse Resp BP Pulse Ox O2 Del Method O2 Flow Rate 96.9 F 101 H 40 H 101/79 100 Mechanical Ventilation 10 05/19/25 16:00 05/19/25 16:00 05/19/25 16:00 05/19/25 16:00 05/19/25 16:00 05/19/25 16:00 05/19/25 16:00 FiO2 45 05/19/25 16:00 Narrative Exam Physical Exam: Constitutional: Alert, oriented x 3 and no acute distress. Nods and expresses self to questions, writes on white board for communication. Elderly male, morbidly obese. HEENT: Vision grossly intact. Patent nares. Trachea midline. Tracheostomy tube in situ, exit site clean. Respiratory: Chest normal on inspection and decreased air entry in all lung sims, transmitted sounds and congestion on anterior chest wall, middle and upper lobes. Cardiovascular: S1 and S2 audible, RRR. No murmurs carotid bruit. No gross JVD. Abdominal: Soft, obese and non tender to palpation in all quadrants. BS +. Jejunostomy tube in situ, exit site clean Genitourinary: No bladder tenderness, no flank pain. Normal to palpation Musculoskeletal: Extremities tone within normal limits. Mild edema in right upper extremity, improved upon placing on pillow. No lower extremity edema bilaterally. Neurological: CN II - XII grossly intact. Extremity motor and sensation grossly intact. Extremities: 1+ pitting lower extremity edema bilaterally. Skin: Warm, dry and intact. Large sacral decubitus ulcer, necrotic tissue noted. No purulent drainage noted. Cleanly packed with dressings. Psychiatric: Patient has good affect, is cooperative Objective Labs 05/25/25 05:40 05/25/25 05:40 Labs: Laboratory Results - last 24 hr 05/19/25 05:45 WBC 18.0 H RBC 2.56 L Hgb 7.3 L Hct 23.6 L MCV 92 MCH 28.5 MCHC 30.9 L RDW Std Deviation 58.9 H Plt Count 477 H D Neut % (Auto) 61 Lymph % (Auto) 25 Boundary % (Auto) 9 Eos % (Auto) 4 Baso % (Auto) 0 Neut # (Auto) 11.0 H Lymph # (Auto) 4.4 Boundary # (Auto) 1.6 H Eos # (Auto) 0.7 H Baso # (Auto) 0.0 Immature Gran # (Auto) 0.26 H Absolute Nucleated RBC 0.00 Immature Gran % 1 H Nucleated RBC % 0 Sodium 141 Potassium 5.0 Chloride 101 Carbon Dioxide 26.9 Anion Gap 13 BUN 128 H* Creatinine 4.4 H* Estim Creat Clear Calc 27.6 L eGFR 14 L* BUN/Creatinine Ratio 29 H Glucose 177 H Calculated Osmolality 326 H Calcium 9.3 Corrected Calcium 9.7 Phosphorus 6.2 H Magnesium 2.9 H Total Bilirubin 0.3 AST 18 ALT 15 Alkaline Phosphatase 247 H Total Protein 6.7 Albumin 3.5 Globulin 3.2 Albumin/Globulin Ratio 1.1 L ABG Interpretation ABG results: 04/18/25 04/18/25 04/18/25 04:40 06:27 10:30 ABG pH 7.28 L 7.33 L 7.36 ABG pCO2 72 H* 67 H 61 H ABG pO2 132 H 60 L D 60 L ABG HCO3 34 H 35 H 34 H ABG O2 Saturation 100 H 93 93 ABG Base Excess 6 H 7 H 8 H 04/19/25 05/10/25 08:53 07:40 ABG pH 7.47 H D 7.52 H ABG pCO2 45 D 40 ABG pO2 66 L 60 L ABG HCO3 33 H 32 H ABG O2 Saturation 96 94 ABG Base Excess 8 H 8 H Quality Measures Quality Measures VTE therapy Advance care planning discussed with:: patient Assessment & Plan Assessment Current Active Medications: Generic Name Dose Route Start Last Admin Trade Name Freq PRN Reason Stop Dose Admin Acetaminophen 650 mg 05/01/25 08:47 05/17/25 11:50 Acetaminophen 325 Mg Tablet PO 05/22/25 20:42 650 mg Q6HR PRN Administration pain 1-3 OR Fever >100.4 Hydrocodone Bitart/Acetaminophen 1 tab 05/18/25 19:07 05/19/25 14:34 Hydrocodone/Apap 7.5/325 Tablet PO 05/23/25 19:06 1 tab Q6HR PRN Administration PAIN SCALE 4-10(Mod-Sev Acetylcysteine 3 ml 05/10/25 15:00 05/19/25 14:02 Acetylcysteine Rt Gloria 10% 4 Ml Nebu INH 06/09/25 14:59 3 ml Q8HRRT KOURTNEY Administration Albuterol/Ipratropium 3 ml 05/10/25 15:00 05/19/25 14:02 Albuterol/Ipratropium (Duoneb) Rt Gloria 3 Ml Nebu INH 06/09/25 14:59 3 ml Q8HRRT KOURTNEY Administration Amiodarone HCl 200 mg 05/12/25 13:45 05/19/25 08:34 Amiodarone Hcl 200 Mg Tablet GT 06/11/25 13:44 200 mg QDAY KOURTNEY Administration Dextrose 25 ml 05/12/25 13:47 Dextrose 50%-Water Inj 50 Ml Syringe IV 06/11/25 13:46 Q15MIN PRN BG 50-70 responsive npo pt Dextrose 50 ml 05/12/25 13:48 Dextrose 50%-Water Inj 50 Ml Syringe IV 06/11/25 13:47 Q15MIN PRN BG <50 OR BG <70 & pt unresponsive Gabapentin 100 mg 05/11/25 14:05 05/19/25 14:35 Gabapentin 100 Mg Capsule PO 06/10/25 14:04 100 mg TID KOURTNEY Administration Glucagon 1 mg 05/12/25 13:49 Glucagon Inj 1 Mg Vial IM 06/11/25 13:48 Q15MIN PRN BG <70, and no IV access Albumin Human 25 gm in 100 mls @ 100 mls/min 04/24/25 11:52 Albuminar-25 Ivpb IV PRN PRN DIALYSIS Levofloxacin/Dextrose 750 mg in 150 mls @ 100 mls/hr 05/14/25 21:00 05/18/25 21:37 Levaquin Ivpb IV 05/21/25 20:59 100 mls/hr Q48HR@2100 KORUTNEY Administration Insulin Glargine 38 unit 05/13/25 09:00 05/19/25 08:39 Insulin Glargine (Lantus) 5 Unit/0.05 Ml (Per 5 Units) SC 06/12/25 08:59 38 unit QDAY KOURTNEY Administration Insulin Human Lispro 0 unit 05/12/25 18:00 05/19/25 12:00 Insulin Lispro (Admelog) 1 Unit/0.01 Ml Unit SC 06/11/25 17:59 2 unit Q6HR KOURTNEY Administration Protocol Lansoprazole 30 mg 05/05/25 09:00 05/19/25 08:29 Lansoprazole 30 Mg Tab.Rap. GT 06/04/25 08:59 30 mg QDAY KOURTNEY Administration Pharmacy Consult 1 each 04/24/25 08:43 Pharmacy Renal Dose Adjustment 1 Ea XX 05/24/25 08:42 PRN PRN CONSULT Pharmacy Consult 1 each 05/14/25 08:22 Pharmacy Renal Dose Adjustment 1 Ea XX 06/13/25 08:21 PRN PRN CONSULT Sennosides 2 tab 05/02/25 09:00 05/19/25 08:28 Senna Tablet GT 06/01/25 08:59 2 tab QDAY KOURTNEY Administration Protocol Sodium Hypochlorite 473 ml 05/06/25 21:00 05/19/25 14:35 Sod Hypochlorite 1/4 Str 473 Ml Btl IRRIG 06/05/25 20:59 1 applicatio BID KOURTNEY Administration Plan 64-year-old with morbid obesity with subsequent obesity hypoventilation syndrome requiring tracheostomy and J-tube placement, hypertension, type 2 diabetes, atrial fibrillation, right internal jugular DVT and acute kidney injury secondary to ischemic ATN requiring multiple sessions of hemodialysis and sacral ulcers status post wound VAC currently being treated for acute on chronic hypoxic respiratory failure, ischemic ATN. Pending placement at LTAC. #Acute kidney injury-suspicion of ischemic ATN, resolved #Fluid overload #Acute on chronic hypoxic respiratory failure, improving. 04/20 ? Attempt was made to place Fuller catheter however unable to pass catheter due to significant resistance and attempt was terminated. Discussed with nursing about possibility of weighing briefs daily. Patient had temporary hemodialysis catheter placed 04/24, receiving dialysis had 1 L removed on 04/24, 2 L on 04/25, 2.14 on 04/26, 2.1 L on 04/29; temporary dialysis catheter discontinued on 05/06 Patient being followed by nephrology, nephrology agrees with diuresis for now, will need close monitoring, poor candidate for dialysis due to body habitus and also has chronic anemia with wound bleeding from sacral region-pharmacy innovation assistant did discuss with patient in detail, he verbalizes understanding. Bumex held on 05/15 due to worsening creatinine, continues to worsen. Due to lack of improvement despite diuretic holiday, discussed with patient today need for hemodialysis in the near future. Patient initially refused but after multiple attempts of counseling and explaining risks and benefits, including , patient was eventually agreeable. Plan: -Continue to hold Bumex -Nephrology consulted, appreciate recommendations -Consider restarting on hemodialysis if worsen -Antibiotics as above -Monitor I&O's -Avoid nephrotoxic agents -Renally dose medication #Acute on Chronic Respiratory Failure secondary to mucous plug #Healthcare-Associated Pneumonia #Leukocytosis Patient noted to have acute on chronic respiratory failure, required bronchoscopy w/ mucous plugs removed. Previous sputum Pseudomnas (04/03/2025) 05/09/2025 Bronchial washing culture grew pseudomonas, sensitive to Zosyn Vancomycin (05/09/2025-05/12/25) and doxycycline (05/12-05/13) were discontinued due to nephrotoxicity. Completed Zosyn course (05/09-05/16/25) Of note, patient has history of Pseudomonnas infection Plan: -Continue Levofloxacin 750 mg every 48 hrs for 7 days due to concern for aspiration PNA (05/14/25- -Blow-by during the day, mechanical ventilation at night as needed at baseline, currently on mechanical ventilation -DuoNeb, Mucomyst and chest physiotherapy scheduled #Paroxysmal atrial fibrillation Per cardiology there is a concern of heart block, tachybradycardia syndrome as well. [id number] score of 3 points indicating 3.2% risk of stroke per year HAS-BLED: 3. High risk of major bleeding 05/13: Discussed with hide stretcher hand?will start on amiodarone previous dose, 200 mg daily. Per cardiology patient is a poor candidate for pacemaker placement, patient was informed at bedside by cardiology team. He verbalized understanding. Plan: - Continue p.o. amiodarone. - Cardiology consulted, appreciate recommendations - Patient will need anticoagulation, however has low hemoglobin, bleeding wound will defer anticoagulation for now. #Congestive heart failure, HFpEF 65% #Diastolic dysfunction, grade 3 #Pulmonary hypertension #Right heart failure #BASIA/OHS #Moderate to severe a AOV calcification with no stenosis Patient has a past medical history of right heart faillure, Diastolic dysfucntion, and HFpEF 65% likely in the setting of cardiomypoathy seconadary to morbid obesity form BASIA/OHS. Given Cxr noted with prominent vascular congestion, consider repeat BNP, although hemodynamically unstable given pressors but may consider. No pheriphearl edema noted. Cxr (05/09/2025): Mild Heart Failure, Prominent vascular congestion and Moderate to large right pleural effusion Echo (04/29/2025): Normal LV size and function. Estimated EF of 65%. Grade III Diastolic Dysfunction.Right ventricle is dilated with mild RV dysfunction RVSP 47mmHg. RAP 15mmHg.Severe biatrial dilation.Moderate to Severe AOV calcification with no stenosis <ild tricuspid regurgitation. No pericardial effusion. Plan -Continue holding Bumex -Recommended patient to sit up in bed to help relieve IVC pressure -Cardiology consulted -Patient 1500 cc/day fluid restriction, daily weights, tube feeds resumed -K >4 and Mg >2 #Decubitus ulcer status post excisional debridement of sacral decubitus ulcer Recent debridement of large decubitus ulcer on 05/02/2025 likely secondary to morbid obestiy and lack of mobility. 04/29: excisional debridement of sacral decubitus ulcer, washout and placement of wound VAC. 05/02: Patient had significant bleeding overnight, wound VAC leaked. Hemoglobin stable this morning, patient's bleeding from wound overnight was controlled with suture ligation. Wound was assessed by general surgeon, patient was transitioned back to red dry dressings daily. Plan: -Continue wound care #Jejunostomy tube #Abdominal abscess - resolved Patient report said that there was an intra-abdominal abscess that have could have been from a perforated ulcer in the past See also note reviewed, mentions that patient likely had a marginal ulcer, but also was not seen on EGD without, currently patient has no abdominal tenderness and is totally asymptomatic. No current drain at this time Patient is status post laparoscopic J-tube placement and is currently on feeds Patient will continue to have this tube and will likely go to a long-term care facility with this until patient can swallow safely Plan: ? Monitor vitals closely #Normocytic normochromic anemia Multifactorial. Patient's baseline hemoglobin throughout the hospitalization has been in the range 9?11, patient did have some bleeding from wound VAC site on 05/02 which was controlled by suture ligation by general surgery. Had recurrent bleeding and eventually heparin drip was held. - Patient is a Jewish, denies any blood transfusion/blood products - Will repeat CBC as needed #Right internal jugular venous thrombosis #Right arm swelling Continuing free water flushes, patient has gone multiple days of heparin drip since 04/01 Right upper extremity ultrasound May 04-shows right IJ thrombus Plan: ? Continue to hold heparin drip due to recurrent sacral ulcer bleeding #Morbid obesity #DM2 A1C 7.6 on 03/05/2025 Patient has a BMI of 79.5->68.7 Attempted to prescribe tirzepatide to outside pharmacy to bring inpatient however no one is able to pick it up for the patient. Plan: - ISS scale 2 - Hypoglycemia protocol - 38 units of Lantus. Health Maintenance Disposition: Telemetry DVT prophylaxis: None, patient is Jewish and has a bleeding sacral wound GI prophylaxis: Protonix Diet: 2Cal Tube Feeds with 30 cc/hour water flush CODE STATUS: Full code Patient plan of care was discussed with attending physician, Dr. Mendoza. Ekaterina PGY3 Attending Provider Attestation/Addendum 64-year-old with morbid obesity with subsequent obesity hypoventilation syndrome requiring tracheostomy and J-tube placement, hypertension, type 2 diabetes, atrial fibrillation, right internal jugular DVT and acute kidney injury secondary to ischemic ATN requiring multiple sessions of hemodialysis and sacral ulcers status post wound VAC currently being treated for acute on chronic hypoxic respiratory failure, ischemic ATN. Overnight, patient noted to have significant bleeding from decubitus ulcer and subsequently general surgery was consulted and heparin drip was discontinued. Talked with the patient regarding discontinuation of heparin drip and given that he has a right internal jugular DVT and atrial fibrillation and updated him that he is at risk for strokes and worsening disease progression however he is in agreement to stop the heparin drip for now. In addition, patient is also a Jewish and refusing blood product and I counseled him regarding need of blood product and risk of not getting it including worsening disease progression which can lead to cardiac arrest and however he understands and continues to refuse for which we will respect his decision. As of now, patient kidney function continues to worsen and likely will need hemodialysis. Anemia is stable and patient appears to be stable on mechanical ventilation with stable setting. I reviewed above note and agree with findings and plans. I have also personally examined the patient with medicine team and went over assessment and plan with medical team including internet marketing executive and resident physician.
[2025-05-20] VITALS (15 sets, daily range): BP systolic 83–102; BP diastolic 59–74; PULSE 81–115; RESP 18–31; TEMP 36.1–36.3; O2SAT 96–100; BMI 67.8
[2025-05-20] MEDS: GABAPENTIN 100 MG CAPSULE PO (05:39)
[2025-05-20 06:18] LABS: Basophils # (Auto) 0.0 Thou/mm3 (0.0-0.2); Basophils % (Auto) 0 % (0-2.5); Eosinophils # (Auto) 0.4 Thou/mm3 (0.0-0.5); Eosinophils % (Auto) 2 % (0-10); Hematocrit 25.9 % (41.0-53.0); Immature Granulocytes Auto 0.31 Thou/mm3 (0.00-0.00); Lymphocytes # (Auto) 4.2 Thou/mm3 (1.0-4.8); Lymphocytes % (Auto) 23 % (10-50); Mean Corpuscular HGB Conc 30.5 g/dl (31.0-37.0); Mean Corpuscular Hemoglobin 28.4 pg (25.0-35.0); Mean Corpuscular Volume 93 fL (80-100); Monocytes # (Auto) 1.7 Thou/mm3 (0.0-0.8); Monocytes % (Auto) 10 % (0-12); Neutrophils # (Auto) 11.4 Thou/mm3 (1.8-7.7); Neutrophils % (Auto) 63 % (37-80); Nucleated Red Blood Cell # 0.00 Thou/mm3 (0.00-0.00); Nucleated Red Blood Cell % 0 /100 WBC (0); Platelet Count 485 Thou/mm3 (140-440); RDW Standard Deviation 60.2 fL (35.1-43.9); Red Blood Count 2.78 Miln/mm3 (4.50-5.90); White Blood Count 18.1 Thou/mm3 (3.8-10.6)
[2025-05-20 06:25] LABS: Hemoglobin 7.9 g/dL (13.5-16.0)
[2025-05-20] MEDS: ACETYLCYSTEINE RT SOL 10% 4 ML NEBU 3 ML INH ×3 (06:29→23:00)
[2025-05-20] MEDS: ALBUTEROL/IPRATROPIUM (Duoneb) RT SOL 3 ML NEBU INH ×3 (06:29→23:00)
[2025-05-20 07:06] LABS: Alanine Aminotransferase 14 U/L (10-49); Albumin, Serum 3.5 gm/dL (3.4-4.8); Albumin/Globulin Ratio 1.1 (1.2-2.2); Alkaline Phosphatase 231 U/L (46-116); Anion Gap 16 (7-16); Aspartate Amino Transferase 17 U/L (0-34); BUN/Creatinine Ratio 30 Ratio (12-20); Bilirubin,Total 0.3 mg/dL (0.3-1.2); Calcium 9.4 mg/dL (8.3-10.6); Calcium (Corrected) 9.8 mg/dL (8.5-10.1); Carbon Dioxide 26.6 mMol/L (20.0-31.0); Chloride 100 mMol/L (98-107); Creatinine (Component) 4.4 mg/dL (0.6-1.3); Estimated Creatinine Clearance 27.6 mL/min (>60); Globulin 3.2 gm/dL (2.3-3.5); Glucose 155 mg/dL (74-106); Magnesium 3.0 mg/dL (1.6-2.6); Osmolality,Calculated 329 (275-295); Phosphorous 6.7 mg/dL (2.4-5.1); Potassium 5.1 mMol/L (3.4-5.1); Sodium 143 mMol/L (136-145); Total Protein 6.7 gm/dL (5.7-8.2); eGFR 14 See Note
[2025-05-20 07:10] LABS: Blood Urea Nitrogen 130 mg/dL (9-23)
[2025-05-20] MEDS: INSULIN GLARGINE (Lantus) 5 UNIT/0.05 ML (PER 5 UNITS) 38 UNIT SC (08:15)
[2025-05-20] MEDS: AMIODARONE HCL 200 MG TABLET GT (08:17)
[2025-05-20] MEDS: LANSOPRAZOLE 30 MG TAB.RAP.DR GT (08:17)
[2025-05-20] MEDS: SOD HYPOCHLORITE 1/4 STR 473 ML BTL IRRIG ×2 (08:18→22:00)
--- NOTE | 2025-05-20 08:27 | ESPR_ITS ---
Documentation for date of: 05/20/25 Senior resident attestation: Patient was seen at the bedside, continued on mechanical ventilation via trach collar, patient is awake and alert able to communicate with signs and writing aids. Monitoring Renal function, noted incresaing BUn and creatinine, uptrending potassium, Ingot Supervisor dr Darden plan to initiate hemodilaysis. Dialysis cath with be placed tomorrow. Noted leucocytosis but , patient stayed afebrile, urine output adequate, continued on Levaquin 750 Mg every 48 hours per sensitivity and creatinine clearance for HCAP. Per case management, patient can be transferred to LTAC or subacute pending he is medically cleared for 48 hours. Anticipate discharge for if patient stays medically stable. Patient evaluated and examined at the bedside, plan of care discussed with rest of the team including my attending physician, except as noted. Quresh PGY3 Subjective Subjective Interval history: No acute events overnight. Patient seen and examined at bedside this AM. Patient is agreeable to hemodialysis catheter placement. Labs and vitals were reviewed. Potassium today is 5.1 BUN is 130 creatinine is 4.4. Phosphorus is 6.7, given Sevelemir x 1. Magnesium 3.0. Ordered evening potassium and renal panel due to concern for elevating electrolytes. Consulted health claims examiner Dr. Li, will plan for hemodialysis catheter placement tomorrow. No further complaints at this time. Pending discharge to LTAC after hemodialysis. Review of systems otherwise negative except what is mentioned above. Exam Vital Signs Temp Pulse Resp BP Pulse Ox O2 Del Method O2 Flow Rate 97.2 F 90 22 H 98/63 100 Mechanical Ventilation 10 05/20/25 08:00 05/20/25 08:00 05/20/25 08:00 05/20/25 08:00 05/20/25 08:00 05/20/25 08:00 05/20/25 08:00 FiO2 45 05/20/25 08:00 Narrative Exam Physical Exam: Constitutional: Alert, oriented x 3 and no acute distress. Nods and expresses self to questions, writes on white board for communication. Elderly male, morbidly obese. HEENT: Vision grossly intact. Patent nares. Trachea midline. Tracheostomy tube in situ, exit site clean. Respiratory: Chest normal on inspection and decreased air entry in all lung sims, transmitted sounds and congestion on anterior chest wall, middle and upper lobes. Cardiovascular: S1 and S2 audible, RRR. No murmurs carotid bruit. No gross JVD. Abdominal: Soft, obese and non tender to palpation in all quadrants. BS +. Jejunostomy tube in situ, exit site clean Genitourinary: No bladder tenderness, no flank pain. Normal to palpation Musculoskeletal: Extremities tone within normal limits. Mild edema in right upper extremity, improved upon placing on pillow. No lower extremity edema bilaterally. Neurological: CN II - XII grossly intact. Extremity motor and sensation grossly intact. Extremities: 1+ pitting lower extremity edema bilaterally. Skin: Warm, dry and intact. Large sacral decubitus ulcer, necrotic tissue noted. No purulent drainage noted. Cleanly packed with dressings. Psychiatric: Patient has good affect, is cooperative Objective Labs 05/25/25 05:40 05/25/25 05:40 Labs: Laboratory Results - last 24 hr 05/20/25 05:08 WBC 18.1 H RBC 2.78 L Hgb 7.9 L Hct 25.9 L MCV 93 MCH 28.4 MCHC 30.5 L RDW Std Deviation 60.2 H Plt Count 485 H Neut % (Auto) 63 Lymph % (Auto) 23 Lane % (Auto) 10 Eos % (Auto) 2 Baso % (Auto) 0 Neut # (Auto) 11.4 H Lymph # (Auto) 4.2 Lane # (Auto) 1.7 H Eos # (Auto) 0.4 Baso # (Auto) 0.0 Immature Gran # (Auto) 0.31 H Absolute Nucleated RBC 0.00 Immature Gran % 2 H Nucleated RBC % 0 Sodium 143 Potassium 5.1 Chloride 100 Carbon Dioxide 26.6 Anion Gap 16 BUN 130 H* Creatinine 4.4 H* Estim Creat Clear Calc 27.6 L eGFR 14 L* BUN/Creatinine Ratio 30 H Glucose 155 H Calculated Osmolality 329 H Calcium 9.4 Corrected Calcium 9.8 Phosphorus 6.7 H Magnesium 3.0 H Total Bilirubin 0.3 AST 17 ALT 14 Alkaline Phosphatase 231 H Total Protein 6.7 Albumin 3.5 Globulin 3.2 Albumin/Globulin Ratio 1.1 L ABG Interpretation ABG results: 04/18/25 04/18/25 04/18/25 04:40 06:27 10:30 ABG pH 7.28 L 7.33 L 7.36 ABG pCO2 72 H* 67 H 61 H ABG pO2 132 H 60 L D 60 L ABG HCO3 34 H 35 H 34 H ABG O2 Saturation 100 H 93 93 ABG Base Excess 6 H 7 H 8 H 04/19/25 05/10/25 08:53 07:40 ABG pH 7.47 H D 7.52 H ABG pCO2 45 D 40 ABG pO2 66 L 60 L ABG HCO3 33 H 32 H ABG O2 Saturation 96 94 ABG Base Excess 8 H 8 H Quality Measures Quality Measures VTE therapy Advance care planning discussed with:: patient Assessment & Plan Assessment Current Active Medications: Generic Name Dose Route Start Last Admin Trade Name Freq PRN Reason Stop Dose Admin Acetaminophen 650 mg 05/01/25 08:47 05/17/25 11:50 Acetaminophen 325 Mg Tablet PO 05/22/25 20:42 650 mg Q6HR PRN Administration pain 1-3 OR Fever >100.4 Hydrocodone Bitart/Acetaminophen 1 tab 05/18/25 19:07 05/19/25 14:34 Hydrocodone/Apap 7.5/325 Tablet PO 05/23/25 19:06 1 tab Q6HR PRN Administration PAIN SCALE 4-10(Mod-Sev Acetylcysteine 3 ml 05/10/25 15:00 05/20/25 06:29 Acetylcysteine Rt Gloria 10% 4 Ml Nebu INH 06/09/25 14:59 3 ml Q8HRRT KOURTNEY Administration Albuterol/Ipratropium 3 ml 05/10/25 15:00 05/20/25 06:29 Albuterol/Ipratropium (Duoneb) Rt Gloria 3 Ml Nebu INH 06/09/25 14:59 3 ml Q8HRRT KOURTNEY Administration Amiodarone HCl 200 mg 05/12/25 13:45 05/19/25 08:34 Amiodarone Hcl 200 Mg Tablet GT 06/11/25 13:44 200 mg QDAY KOURTNEY Administration Dextrose 25 ml 05/12/25 13:47 Dextrose 50%-Water Inj 50 Ml Syringe IV 06/11/25 13:46 Q15MIN PRN BG 50-70 responsive npo pt Dextrose 50 ml 05/12/25 13:48 Dextrose 50%-Water Inj 50 Ml Syringe IV 06/11/25 13:47 Q15MIN PRN BG <50 OR BG <70 & pt unresponsive Gabapentin 100 mg 05/11/25 14:05 05/20/25 05:39 Gabapentin 100 Mg Capsule PO 06/10/25 14:04 100 mg TID KOURTNEY Administration Glucagon 1 mg 05/12/25 13:49 Glucagon Inj 1 Mg Vial IM 06/11/25 13:48 Q15MIN PRN BG <70, and no IV access Albumin Human 25 gm in 100 mls @ 100 mls/min 04/24/25 11:52 Albuminar-25 Ivpb IV PRN PRN DIALYSIS Levofloxacin/Dextrose 750 mg in 150 mls @ 100 mls/hr 05/14/25 21:00 05/18/25 21:37 Levaquin Ivpb IV 05/21/25 20:59 100 mls/hr Q48HR@2100 KOURTNEY Administration Insulin Glargine 38 unit 05/13/25 09:00 05/19/25 08:39 Insulin Glargine (Lantus) 5 Unit/0.05 Ml (Per 5 Units) SC 06/12/25 08:59 38 unit QDAY KOURTNEY Administration Insulin Human Lispro 0 unit 05/12/25 18:00 05/20/25 05:04 Insulin Lispro (Admelog) 1 Unit/0.01 Ml Unit SC 06/11/25 17:59 Not Given Q6HR [facility] Protocol Lansoprazole 30 mg 05/05/25 09:00 05/19/25 08:29 Lansoprazole 30 Mg Tab. GT 06/04/25 08:59 30 mg QDAY [facility] Administration Pharmacy Consult 1 each 04/24/25 08:43 Pharmacy Renal Dose Adjustment 1 Ea XX 05/24/25 08:42 PRN PRN CONSULT Pharmacy Consult 1 each 05/14/25 08:22 Pharmacy Renal Dose Adjustment 1 Ea XX 06/13/25 08:21 PRN PRN CONSULT Sennosides 2 tab 05/02/25 09:00 05/19/25 08:28 Senna Tablet GT 06/01/25 08:59 2 tab QDAY [facility] Administration Protocol Sodium Hypochlorite 473 ml 05/06/25 21:00 05/19/25 21:29 Sod Hypochlorite 1/4 Str 473 Ml Btl IRRIG 07/23/25 20:59 1 applicatio BID KOURTNEY Administration Plan Patient is a 64-year-old male with morbid obesity with subsequent obesity hypoventilation syndrome requiring tracheostomy and J-tube placement, hypertension, type 2 diabetes, atrial fibrillation, right internal jugular DVT and acute kidney injury secondary to ischemic ATN requiring multiple sessions of hemodialysis and sacral ulcers status post wound VAC currently being treated for acute on chronic hypoxic respiratory failure, ischemic ATN. Pending dialysis catheter placement tomorrow, discharge placement reserved at LTAC. #Acute kidney injury-suspicion of ischemic ATN, resolved #Fluid overload #Acute on chronic hypoxic respiratory failure, improving. 04/20 ? Attempt was made to place Fuller catheter however unable to pass catheter due to significant resistance and attempt was terminated. Discussed with nursing about possibility of weighing briefs daily. Patient had temporary hemodialysis catheter placed 04/24, receiving dialysis had 1 L removed on 04/24, 2 L on 04/25, 2.14 on 04/26, 2.1 L on 04/29; temporary dialysis catheter discontinued on 05/06 Patient being followed by nephrology, nephrology agrees with diuresis for now, will need close monitoring, poor candidate for dialysis due to body habitus and also has chronic anemia with wound bleeding from sacral region-health claims examiner did discuss with patient in detail, he verbalizes understanding. Bumex held on 05/15 due to worsening creatinine, continues to worsen. Due to lack of improvement despite diuretic holiday, discussed with patient today need for hemodialysis in the near future. Patient initially refused but after multiple attempts of counseling and explaining risks and benefits, including , patient was eventually agreeable. Consulted nephrology Dr. Li 05/20, plan for hemodialysis placement tomorrow with dialysis sessions likely Tuesday, Tuesday. Plan: -Continue to hold Bumex as patient does not appear fluid overloaded on exam -Nephrology consulted, appreciate recommendations -Plan for hemodialysis catheter placement tomorrow -Continue antibiotics -Monitor I&O's -Avoid nephrotoxic agents -Renally dose medication #Acute on Chronic Respiratory Failure secondary to mucous plug #Healthcare-Associated Pneumonia #Leukocytosis Patient noted to have acute on chronic respiratory failure, required bronchoscopy w/ mucous plugs removed. Previous sputum Pseudomnas (04/03/2025) 05/09/2025 Bronchial washing culture grew pseudomonas, sensitive to Zosyn Vancomycin (05/09/2025-05/12/25) and doxycycline (05/12-05/13) were discontinued due to nephrotoxicity. Completed Zosyn course (05/09-05/16/25) Of note, patient has history of Pseudomonnas infection Plan: -Continue Levofloxacin 750 mg every 48 hrs for 7 days due to concern for aspiration PNA (05/14/25- -Blow-by during the day, mechanical ventilation at night as needed at baseline, currently on mechanical ventilation -DuoNeb, Mucomyst and chest physiotherapy scheduled #Paroxysmal atrial fibrillation Per cardiology there is a concern of heart block, tachybradycardia syndrome as well. [id number] score of 3 points indicating 3.2% risk of stroke per year HAS-BLED: 3. High risk of major bleeding 05/13: Discussed with investment analyst?will start on amiodarone previous dose, 200 mg daily. Per cardiology patient is a poor candidate for pacemaker placement, patient was informed at bedside by cardiology team. He verbalized understanding. Plan: - Continue p.o. amiodarone. - Cardiology consulted, appreciate recommendations - Patient will need anticoagulation, however has low hemoglobin, bleeding wound will defer anticoagulation for now. #Congestive heart failure, HFpEF 65% #Diastolic dysfunction, grade 3 #Pulmonary hypertension #Right heart failure #BASIA/OHS #Moderate to severe a AOV calcification with no stenosis Patient has a past medical history of right heart faillure, Diastolic dysfucntion, and HFpEF 65% likely in the setting of cardiomypoathy seconadary to morbid obesity form BASIA/OHS. Given Cxr noted with prominent vascular congestion, consider repeat BNP, although hemodynamically unstable given pressors but may consider. No pheriphearl edema noted. Cxr (05/09/2025): Mild Heart Failure, Prominent vascular congestion and Moderate to large right pleural effusion Echo (04/29/2025): Normal LV size and function. Estimated EF of 65%. Grade III Diastolic Dysfunction.Right ventricle is dilated with mild RV dysfunction RVSP 47mmHg. RAP 15mmHg.Severe biatrial dilation.Moderate to Severe AOV calcification with no stenosis <ild tricuspid regurgitation. No pericardial effusion. Plan -Continue holding Bumex -Recommended patient to sit up in bed to help relieve IVC pressure -Cardiology consulted -Patient 1500 cc/day fluid restriction, daily weights, tube feeds resumed -K >4 and Mg >2 #Decubitus ulcer status post excisional debridement of sacral decubitus ulcer Recent debridement of large decubitus ulcer on 05/02/2025 likely secondary to morbid obestiy and lack of mobility. 04/29: excisional debridement of sacral decubitus ulcer, washout and placement of wound VAC. 05/02: Patient had significant bleeding overnight, wound VAC leaked. Hemoglobin stable this morning, patient's bleeding from wound overnight was controlled with suture ligation. Wound was assessed by general surgeon, patient was transitioned back to red dry dressings daily. Plan: -Continue wound care #Jejunostomy tube #Abdominal abscess - resolved Patient report said that there was an intra-abdominal abscess that have could have been from a perforated ulcer in the past See also note reviewed, mentions that patient likely had a marginal ulcer, but also was not seen on EGD without, currently patient has no abdominal tenderness and is totally asymptomatic. No current drain at this time Patient is status post laparoscopic J-tube placement and is currently on feeds Patient will continue to have this tube and will likely go to a long-term care facility with this until patient can swallow safely Plan: ? Monitor vitals closely #Normocytic normochromic anemia Multifactorial. Patient's baseline hemoglobin throughout the hospitalization has been in the range 9?11, patient did have some bleeding from wound VAC site on 05/02 which was controlled by suture ligation by general surgery. Had recurrent bleeding and eventually heparin drip was held. - Patient is a Orthodoxy, denies any blood transfusion/blood products - Will repeat CBC as needed #Right internal jugular venous thrombosis #Right arm swelling Continuing free water flushes, patient has gone multiple days of heparin drip since 04/01 Right upper extremity ultrasound May 04-shows right IJ thrombus Plan: ? Continue to hold heparin drip due to recurrent sacral ulcer bleeding #Morbid obesity #DM2 A1C 7.6 on 03/05/2025 Patient has a BMI of 79.5->68.7 Attempted to prescribe tirzepatide to outside pharmacy to bring inpatient however no one is able to pick it up for the patient. Plan: - ISS scale 2 - Hypoglycemia protocol - 38 units of Lantus. Health Maintenance Disposition: Telemetry DVT prophylaxis: None, patient is Orthodoxy and has a bleeding sacral wound GI prophylaxis: Protonix Diet: 2Cal Tube Feeds with 30 cc/hour water flush CODE STATUS: Full code Patient plan of care was discussed with the senior resident, Dr. Tobar, and attending physician, Dr. Mendoza. Meena Dutta, PGY-1 Attending Provider Attestation/Addendum 64-year-old with morbid obesity with subsequent obesity hypoventilation syndrome requiring tracheostomy and J-tube placement, hypertension, type 2 diabetes, atrial fibrillation, right internal jugular DVT and acute kidney injury secondary to ischemic ATN requiring multiple sessions of hemodialysis and sacral ulcers status post wound VAC currently being treated for acute on chronic hypoxic respiratory failure, ischemic ATN. Overnight, patient noted to have significant bleeding from decubitus ulcer and subsequently general surgery was consulted and heparin drip was discontinued. Talked with the patient regarding discontinuation of heparin drip and given that he has a right internal jugular DVT and atrial fibrillation and updated him that he is at risk for strokes and worsening disease progression however he is in agreement to stop the heparin drip for now. In addition, patient is also a Orthodoxy and refusing blood product and I counseled him regarding need of blood product and risk of not getting it including worsening disease progression which can lead to cardiac arrest and however he understands and continues to refuse for which we will respect his decision. As of now, patient kidney function continues to worsen and likely will need hemodialysis. Anemia is stable and patient appears to be stable on mechanical ventilation with stable setting. I reviewed above note and agree with findings and plans. I have also personally examined the patient with medicine team and went over assessment and plan with medical team including technical support intern and resident physician.
--- NOTE | 2025-05-20 08:46 | PC.SS ---
Follow up note: Nephrology recommendations are pending. On IV antibiotic. Pt is possible d/c to LTAC or Subacute pending if he is requiring dialysis.
--- NOTE | 2025-05-20 09:06 | PD.RESPRO ---
Documentation for date of: 05/20/25 Subjective Subjective Interval history: Overnight events: No acute events overnight. Patient was seen and examined at bedside. AM vitals and labs reviewed. Ins/Outs . Renal function stable compared to yesterday. BUN 130, creatinine 4.4, GFR 14, potassium 5.1, and phosphate 6.7. Sevelamer 800 mg 3 times daily was added by the medicine team this AM. Diuretics continue to be held at this time. Patient had no major complaints today and was glad that renal function had not further deteriorated. Patient on mechanical ventilation (PEEP 8.0; FiO2 45%) and trach tube in place. Review of systems otherwise negative except for what is mentioned above. Exam Vital Signs Temp Pulse Resp BP Pulse Ox O2 Del Method O2 Flow Rate 97.2 F 90 22 H 98/63 100 Mechanical Ventilation 10 05/20/25 08:00 05/20/25 08:17 05/20/25 08:00 05/20/25 08:17 05/20/25 08:00 05/20/25 08:00 05/20/25 08:00 FiO2 45 05/20/25 08:00 Narrative Exam Physical Exam: General: Alert, no acute distress. Skin: Warm, dry, intact, no obvious rash. Head: Normocephalic, atraumatic. Eye: Normal conjunctiva, PERRL. Cardiovascular: Could not appropriately appreciate heart sounds due to body habitus. Respiratory: Lungs are clear to auscultation, respirations unlabored, no crackles, no wheezing. Mechanical ventilation sounds heard. Gastrointestinal: Soft, nontender, non-distended. No guarding or rebound tenderness. Extremities: 1+ edema in toes, no cyanosis, no clubbing. 2+ radial pulse bilaterally, 2+ pedal pulse bilaterally. Neuro: No focal deficits observed. Nonverbal, moving all extremities. No overt cerebellar signs/incoordination. Psychiatric: Cooperative, appropriate affect. Objective Labs 05/20/25 05:08 05/20/25 05:08 Labs: Laboratory Results - last 24 hr 05/20/25 05:08 WBC 18.1 H RBC 2.78 L Hgb 7.9 L Hct 25.9 L MCV 93 MCH 28.4 MCHC 30.5 L RDW Std Deviation 60.2 H Plt Count 485 H Neut % (Auto) 63 Lymph % (Auto) 23 Mcdonald % (Auto) 10 Eos % (Auto) 2 Baso % (Auto) 0 Neut # (Auto) 11.4 H Lymph # (Auto) 4.2 Mcdonald # (Auto) 1.7 H Eos # (Auto) 0.4 Baso # (Auto) 0.0 Immature Gran # (Auto) 0.31 H Absolute Nucleated RBC 0.00 Immature Gran % 2 H Nucleated RBC % 0 Sodium 143 Potassium 5.1 Chloride 100 Carbon Dioxide 26.6 Anion Gap 16 BUN 130 H* Creatinine 4.4 H* Estim Creat Clear Calc 27.6 L eGFR 14 L* BUN/Creatinine Ratio 30 H Glucose 155 H Calculated Osmolality 329 H Calcium 9.4 Corrected Calcium 9.8 Phosphorus 6.7 H Magnesium 3.0 H Total Bilirubin 0.3 AST 17 ALT 14 Alkaline Phosphatase 231 H Total Protein 6.7 Albumin 3.5 Globulin 3.2 Albumin/Globulin Ratio 1.1 L ABG Interpretation ABG results: 04/18/25 04/18/25 04/18/25 04:40 06:27 10:30 ABG pH 7.28 L 7.33 L 7.36 ABG pCO2 72 H* 67 H 61 H ABG pO2 132 H 60 L D 60 L ABG HCO3 34 H 35 H 34 H ABG O2 Saturation 100 H 93 93 ABG Base Excess 6 H 7 H 8 H 04/19/25 05/10/25 08:53 07:40 ABG pH 7.47 H D 7.52 H ABG pCO2 45 D 40 ABG pO2 66 L 60 L ABG HCO3 33 H 32 H ABG O2 Saturation 96 94 ABG Base Excess 8 H 8 H Quality Measures Quality Measures VTE therapy Assessment & Plan Assessment Current Active Medications: Generic Name Dose Route Start Last Admin Trade Name Freq PRN Reason Stop Dose Admin Acetaminophen 650 mg 05/01/25 08:47 05/17/25 11:50 Acetaminophen 325 Mg Tablet PO 05/22/25 20:42 650 mg Q6HR PRN Administration pain 1-3 OR Fever >100.4 Hydrocodone Bitart/Acetaminophen 1 tab 05/18/25 19:07 05/19/25 14:34 Hydrocodone/Apap 7.5/325 Tablet PO 05/23/25 19:06 1 tab Q6HR PRN Administration PAIN SCALE 4-10(Mod-Sev Acetylcysteine 3 ml 05/10/25 15:00 07/07/25 06:29 Acetylcysteine Rt Gloria 10% 4 Ml Nebu INH 06/09/25 14:59 3 ml Q8HRRT KOURTNEY Administration Albuterol/Ipratropium 3 ml 05/10/25 15:00 05/20/25 06:29 Albuterol/Ipratropium (Duoneb) Rt Gloria 3 Ml Nebu INH 06/09/25 14:59 3 ml Q8HRRT KOURTNEY Administration Amiodarone HCl 200 mg 05/12/25 13:45 05/20/25 08:17 Amiodarone Hcl 200 Mg Tablet GT 06/11/25 13:44 200 mg QDAY KOURTNEY Administration Dextrose 25 ml 05/12/25 13:47 Dextrose 50%-Water Inj 50 Ml Syringe IV 06/11/25 13:46 Q15MIN PRN BG 50-70 responsive npo pt Dextrose 50 ml 05/12/25 13:48 Dextrose 50%-Water Inj 50 Ml Syringe IV 06/11/25 13:47 Q15MIN PRN BG <50 OR BG <70 & pt unresponsive Gabapentin 100 mg 05/11/25 14:05 05/20/25 05:39 Gabapentin 100 Mg Capsule PO 06/10/25 14:04 100 mg TID KOURTNEY Administration Glucagon 1 mg 05/12/25 13:49 Glucagon Inj 1 Mg Vial IM 06/11/25 13:48 Q15MIN PRN BG <70, and no IV access Albumin Human 25 gm in 100 mls @ 100 mls/min 04/24/25 11:52 Albuminar-25 Ivpb IV PRN PRN DIALYSIS Levofloxacin/Dextrose 750 mg in 150 mls @ 100 mls/hr 05/14/25 21:00 05/18/25 21:37 Levaquin Ivpb IV 05/21/25 20:59 100 mls/hr Q48HR@2100 KOURTNEY Administration Insulin Glargine 38 unit 05/13/25 09:00 05/20/25 08:15 Insulin Glargine (Lantus) 5 Unit/0.05 Ml (Per 5 Units) SC 06/12/25 08:59 38 unit QDAY KOURTNEY Administration Insulin Human Lispro 0 unit 05/12/25 18:00 05/20/25 05:04 Insulin Lispro (Admelog) 1 Unit/0.01 Ml Unit SC 06/11/25 17:59 Not Given Q6HR KOURTNEY Protocol Lansoprazole 30 mg 05/05/25 09:00 05/20/25 08:17 Lansoprazole 30 Mg Tab.Rap.Dr DUARTE 06/04/25 08:59 30 mg QDAY KOURTNEY Administration Pharmacy Consult 1 each 04/24/25 08:43 Pharmacy Renal Dose Adjustment 1 Ea XX 05/24/25 08:42 PRN PRN CONSULT Pharmacy Consult 1 each 05/14/25 08:22 Pharmacy Renal Dose Adjustment 1 Ea XX 06/13/25 08:21 PRN PRN CONSULT Sennosides 2 tab 05/02/25 09:00 05/20/25 08:17 Senna Tablet GT 06/01/25 08:59 2 tab QDAY KOURTNEY Administration Protocol Sevelamer Carbonate 800 mg 05/20/25 09:00 Sevelamer Carbonate 800 Mg Tablet GT 06/19/25 08:59 TIDWM KOURTNEY Sodium Hypochlorite 473 ml 05/06/25 21:00 05/20/25 08:18 Sod Hypochlorite 1/4 Str 473 Ml Btl IRRIG 06/05/25 20:59 1 applicatio BID KOURTNEY Administration Plan Mr. Ortega is a 64 year old gentleman with a relevant medical history of A-fib, T2DM, HTN, severe right-sided heart failure, s/p tracheostomy, and Jehova's Witness, who was admitted to [facility] ICU for shock and acute on chronic hypoxic respiratory failure. Nephrology was consulted due to worsening renal function. #Acute kidney injury due to suspected ATN 2/2 CHF and shock Elevated Cr & BUN, decreased eGFR, in setting of shock that can decrease bloodflow to kidneys, resulting in ATN. Lab values continue to be out of normal range. - Continue to monitor kidney function as patient's current H&H status makes safe hemodialysis difficut. - Discussed with patient the need to perform hemodialysis due to continued elevated Cr & BUN, and decreased eGFR. - Current clinical picture does not necessitate hemodialysis urgently given patient and lab value stability, but may require one in the coming days. - Patient expressed desire to have only a temporary catheter placed for hemodialysis. - Continue to hold diuresis and re-evaluate symptomatically. - Continue Sevelamer 800mg TID. - Nephrology will continue to follow. Patient was discussed with the Nephrology attending, Dr. Minor. Thank you for allowing us to participate in the care of this patient. Ollie Sandhu, PGY-1
[2025-05-20] MEDS: SEVELAMER CARBONATE 0.8 GM PACKET (NON-FORMULARY) GT ×2 (11:36→17:39)
[2025-05-20] MEDS: GABAPENTIN 100 MG CAPSULE GT ×2 (14:28→21:20)
--- NOTE | 2025-05-20 14:44 | ESPR_ITS ---
Documentation for date of: 05/20/25 Subjective Subjective Interval history: Mr. Ortega is a 64-year-old male with a past medical history of type 2 diabetes mellitus, history of ATN, A-fib, hypertension, severe right-sided heart failure, HFpEF, severe BASIA, status post tracheostomy and jejunostomy, patient was previously admitted here for hypoxic respiratory failure requiring mechanical ventilation, was later transferred out to [facility] for jejunostomy tube placement, complicated by abdominal abscess, patient is now transferred back to [facility] for further management. The patient was initially noted to have pneumonia and acute hypoxic respiratory failure, requiring mechanical ventilation, nephrology was consulted as patient's renal function continues to worsen. Patient had previously required hemodialysis for ATN, but is a poor dialysis candidate outpatient. Patient did not have any acute events overnight. Patient does not have any complaints/concerns. Planning for temporary HD catheter placement tomorrow. 05/20/2025 patient currently seen in telemetry. No acute overnight events. Took over the care from Dr. Minor. Urine output seems to be acceptable. However azotemia persists. Had a long conversation with the patient and he agreed for temporary dialysis. Labs remarkable for Hgb 7.9, BUN 127, Cr 4.3, eGFR 15, Phos 6.6 Review of Systems CONSTITUTIONAL: Patient denies any fever, chills. HEENT: Denies any visual disturbances or hearing problems. CARDIOVASCULAR: Patient denies any chest pain,. c/o some posterior lower extremity numbness PULMONARY: Patient denies shortness of breath, orthopnea GASTROINTESTINAL: Patient denies any abdominal pain, constipation, nausea, vomiting, diarrhea. GENITOURINARY: Patient denies any urinary symptoms of burning or frequency or hematuria, denies any form in the urine. SKIN: 2+ Bilateral Lower Extremity Pitting edema MUSCULOSKELETAL: patient states unable to move lower extremities very much, states back of lower extremities feel numb. NEUROLOGICAL: Denies any neurological problems of strokes, seizures or confusion. Denies any memory problems. PSYCHIATRIC: Patient seems to be stressed and angry with his medical condition Exam Vital Signs Temp Pulse Resp BP Pulse Ox O2 Del Method O2 Flow Rate 97.0 F 97 27 H 93/74 100 Mechanical Ventilation 10 05/20/25 12:00 05/20/25 14:35 05/20/25 14:35 05/20/25 12:00 05/20/25 14:35 05/20/25 12:00 05/20/25 12:00 FiO2 45 05/20/25 14:35 Narrative Exam GENERAL APPEARANCE: Awake, alert and oriented. No acute distress. NECK: Neck supple, no JVD or bruit, CARDIOVASCULAR: Heart regular, no murmurs LUNGS/CHEST: Lungs CTAB, no SOB ABDOMEN: Soft, nontender, nondistended. No masses. Normal bowel sounds. EXTREMITIES: 2+ edema in the lower extremities SKIN/MSK: Skin in warm, dry and intact without rashes or lesions. Appropriate color for ethnicity. Nailbeds pink with no cyanosis or clubbing. PSYCHIATRIC: Appropriate mood and affect. NEUROLOGICAL : No neurological deficits Objective Labs 05/20/25 05:08 05/20/25 17:43 Labs: Laboratory Results - last 24 hr 05/20/25 05:08 WBC 18.1 H RBC 2.78 L Hgb 7.9 L Hct 25.9 L MCV 93 MCH 28.4 MCHC 30.5 L RDW Std Deviation 60.2 H Plt Count 485 H Neut % (Auto) 63 Lymph % (Auto) 23 [place]duffie % (Auto) 10 Eos % (Auto) 2 Baso % (Auto) 0 Neut # (Auto) 11.4 H Lymph # (Auto) 4.2 [place]duffie # (Auto) 1.7 H Eos # (Auto) 0.4 Baso # (Auto) 0.0 Immature Gran # (Auto) 0.31 H Absolute Nucleated RBC 0.00 Immature Gran % 2 H Nucleated RBC % 0 Sodium 143 Potassium 5.1 Chloride 100 Carbon Dioxide 26.6 Anion Gap 16 BUN 130 H* Creatinine 4.4 H* Estim Creat Clear Calc 27.6 L eGFR 14 L* BUN/Creatinine Ratio 30 H Glucose 155 H Calculated Osmolality 329 H Calcium 9.4 Corrected Calcium 9.8 Phosphorus 6.7 H Magnesium 3.0 H Total Bilirubin 0.3 AST 17 ALT 14 Alkaline Phosphatase 231 H Total Protein 6.7 Albumin 3.5 Globulin 3.2 Albumin/Globulin Ratio 1.1 L ABG Interpretation ABG results: 04/18/25 04/18/25 04/18/25 04:40 06:27 10:30 ABG pH 7.28 L 7.33 L 7.36 ABG pCO2 72 H* 67 H 61 H ABG pO2 132 H 60 L D 60 L ABG HCO3 34 H 35 H 34 H ABG O2 Saturation 100 H 93 93 ABG Base Excess 6 H 7 H 8 H 04/19/25 05/10/25 08:53 07:40 ABG pH 7.47 H D 7.52 H ABG pCO2 45 D 40 ABG pO2 66 L 60 L ABG HCO3 33 H 32 H ABG O2 Saturation 96 94 ABG Base Excess 8 H 8 H Quality Measures Quality Measures none (None, patient is Voodoo and has a bleeding sacral wound) Advance care planning discussed with:: patient Assessment & Plan Assessment Current Active Medications: Generic Name Dose Route Start Last Admin Trade Name Freq PRN Reason Stop Dose Admin Acetaminophen 650 mg 05/01/25 08:47 05/17/25 11:50 Acetaminophen 325 Mg Tablet PO 05/22/25 20:42 650 mg Q6HR PRN Administration pain 1-3 OR Fever >100.4 Hydrocodone Bitart/Acetaminophen 1 tab 05/18/25 19:07 05/19/25 14:34 Hydrocodone/Apap 7.5/325 Tablet PO 05/23/25 19:06 1 tab Q6HR PRN Administration PAIN SCALE 4-10(Mod-Sev Acetylcysteine 3 ml 05/10/25 15:00 05/20/25 14:31 Acetylcysteine Rt Gloria 10% 4 Ml Nebu INH 06/09/25 14:59 3 ml Q8HRRT KOURTNEY Administration Albuterol/Ipratropium 3 ml 05/10/25 15:00 05/20/25 14:31 Albuterol/Ipratropium (Duoneb) Rt Gloria 3 Ml Nebu INH 06/09/25 14:59 3 ml Q8HRRT KOURTNEY Administration Amiodarone HCl 200 mg 05/12/25 13:45 05/20/25 08:17 Amiodarone Hcl 200 Mg Tablet GT 06/11/25 13:44 200 mg QDAY KOURTNEY Administration Dextrose 25 ml 05/12/25 13:47 Dextrose 50%-Water Inj 50 Ml Syringe IV 06/11/25 13:46 Q15MIN PRN BG 50-70 responsive npo pt Dextrose 50 ml 05/12/25 13:48 Dextrose 50%-Water Inj 50 Ml Syringe IV 06/11/25 13:47 Q15MIN PRN BG <50 OR BG <70 & pt unresponsive Gabapentin 100 mg 05/20/25 14:30 05/20/25 14:28 Gabapentin 100 Mg Capsule GT 06/19/25 14:29 100 mg TID KOURTNEY Administration Glucagon 1 mg 05/12/25 13:49 Glucagon Inj 1 Mg Vial IM 06/11/25 13:48 Q15MIN PRN BG <70, and no IV access Albumin Human 25 gm in 100 mls @ 100 mls/min 04/24/25 11:52 Albuminar-25 Ivpb IV PRN PRN DIALYSIS Levofloxacin/Dextrose 750 mg in 150 mls @ 100 mls/hr 05/14/25 21:00 05/18/25 21:37 Levaquin Ivpb IV 05/21/25 20:59 100 mls/hr Q48HR@2100 KOURTNEY Administration Insulin Glargine 38 unit 05/13/25 09:00 05/20/25 08:15 Insulin Glargine (Lantus) 5 Unit/0.05 Ml (Per 5 Units) SC 06/12/25 08:59 38 unit QDAY KOURTNEY Administration Insulin Human Lispro 0 unit 05/12/25 18:00 05/20/25 12:14 Insulin Lispro (Admelog) 1 Unit/0.01 Ml Unit SC 06/11/25 17:59 Not Given Q6HR KOURTNEY Protocol Lansoprazole 30 mg 05/05/25 09:00 05/20/25 08:17 Lansoprazole 30 Mg Tab. GT 06/04/25 08:59 30 mg QDAY KOURTNEY Administration Pharmacy Consult 1 each 04/24/25 08:43 Pharmacy Renal Dose Adjustment 1 Ea XX 05/24/25 08:42 PRN PRN CONSULT Pharmacy Consult 1 each 05/14/25 08:22 Pharmacy Renal Dose Adjustment 1 Ea XX 06/13/25 08:21 PRN PRN CONSULT Sennosides 2 tab 05/02/25 09:00 05/20/25 08:17 Senna Tablet GT 06/01/25 08:59 2 tab QDAY KOURTNEY Administration Protocol Sevelamer Carbonate 0.8 gm 05/20/25 09:45 05/20/25 11:55 Sevelamer Carbonate 0.8 Gm Packet (Non-Formulary) GT 06/19/25 09:44 Not Given TIDWM [facility] Sodium Hypochlorite 473 ml 05/06/25 21:00 05/20/25 08:18 Sod Hypochlorite 11/17 Str 473 Ml Btl IRRIG 06/05/25 20:59 1 applicatio BID [facility] Administration Plan In summary, Mr. Ortega is a 64-year-old male with past medical history of DM2, hypertension, A-fib, and Jehova's witness was admitted to the ICU on 02/27/2025 for shock and acute on chronic hypoxic respiratory failure. He is s/p laparoscopic J-tube placement from [facility]. #Acute kidney injury-- seems to be in Ischemic ATN #Fluid overload Patient was admitted with acute kidney injury likely ischemic acute tubular necrosis, received temporary hemodialysis catheter placed 04/24, receiving dialysis had 1 L removed on 04/24, 2 L on 04/25, 2.14 on 04/26, 2.1 L on 04/29; temporary dialysis catheter discontinued on 05/06 Continues to need close monitoring given worsening kidney function tests of BUN 127, Cr 4.3, eGFR 15, Phos 6.6. Discussed with patient today need for hemodialysis. Patient initially refused but after multiple attempts of counseling and explaining risks and benefits, including , patient was eventually agreeable. Plan: -Plan for hemodialysis catheter placement tomorrow -Monitor I&O's -Avoid nephrotoxic agents -Renally dose medication #Acute on Chronic Respiratory Failure secondary to mucous plug #Healthcare-Associated Pneumonia #Leukocytosis #Paroxysmal atrial fibrillation #Right diastolic CHF #Decubitus ulcer #Chronic back pain #Jejunostomy tube #Normocytic normochromic anemia #Acute on Chronic Hypoxic Hypercapnic Respiratory Failure #Obesity hypoventilation syndrome and obstructive sleep apnea #Tracheostomy #Hx of A-fib #Right internal jugular venous thrombosis #Right arm swelling #Morbid obesity #DM2 Above handled by primary hospitalist team Patient seen and care discussed with my attending physician, Dr. Teressa Fox MD PGY-1 Internal Medicine Attending Provider Attestation/Addendum Patient seen and examined with resident physician Dr. Fox. Note reviewed, agree with findings and recommendations. BUN/creatinine elevated again- ?? going into ATN. Edema ++ Labs 3 times weekly with pediatric tubes due to his Voodoo status. Had a long conversation with the patient-agreed for temporary dialysis. Unfortunately IR cannot do permanent catheter or temporary catheter due to his BMI. Will request ICU for temporary dialysis catheter placement. Dialysis scheduled for tomorrow. Plan of care discussed with Dr. Mendoza
[2025-05-20] MEDS: INSULIN LISPRO (AdmeLOG) 1 UNIT/0.01 ML UNIT SC (17:57)
[2025-05-20 18:32] LABS: Albumin, Serum 3.6 gm/dL (3.4-4.8); Anion Gap 17 (7-16); BUN/Creatinine Ratio 30 Ratio (12-20); Calcium 9.7 mg/dL (8.3-10.6); Calcium (Corrected) 10.0 mg/dL (8.5-10.1); Carbon Dioxide 24.4 mMol/L (20.0-31.0); Chloride 102 mMol/L (98-107); Creatinine (Component) 4.3 mg/dL (0.6-1.3); Estimated Creatinine Clearance 28.3 mL/min (>60); Glucose 168 mg/dL (74-106); Osmolality,Calculated 329 (275-295); Phosphorous 6.6 mg/dL (2.4-5.1); Potassium 5.1 mMol/L (3.4-5.1); Sodium 143 mMol/L (136-145); eGFR 15 See Note
[2025-05-20 18:34] LABS: Blood Urea Nitrogen 127 mg/dL (9-23)
--- NOTE | 2025-05-20 20:00 | ESPR_ITS ---
<Statement entered by Lenora John MD - 05/22/25 00:18> I personally evaluated examined the patient at bedside with PGY [address] ESQUIVEL agree with the treatment plan recommendation as documented patient will require dialysis radiology will place dialysis catheter tomorrow patient has some issues with another medical consideration because of morbid obesity but should be a little dialysis catheter placement and dialysis tomorrow cardiac rebollar stable remains in A-fib rate controlled. Documentation for date of: 05/21/25 Subjective Subjective Interval history: Patient is seen and examined at bedside No acute overnight events. Patient denies any new complaints Maintaining adequate urine output and does not appear to be fluid overloaded. Still on mechanical ventilator, VC mode, FiO2 45%, PEEP 8 Vitals are stable and patient is still in atrial fibrillation with controlled ventricular rate Labs showed elevated BUN and creatinine but patient does not have any uremic symptoms Toddler Nanny, Dr. Gannon is involved in care of patient and planning to do hemodialysis after placing a temporary catheter tomorrow and patient is agreeable to that As patient does not appear to be fluid overload, no need of diuretic for now. Recommended to continue amiodarone 200 Mg daily through G-tube Continue telemetry monitoring Exam Vital Signs Temp Pulse Resp BP Pulse Ox O2 Del Method O2 Flow Rate 97.2 F 100 16 92/74 100 Mechanical Ventilation 10 05/21/25 08:00 05/21/25 08:27 05/21/25 08:00 05/21/25 08:27 05/21/25 08:00 05/21/25 08:00 05/21/25 08:00 FiO2 40 05/21/25 08:00 Narrative Exam General: Awake. obese HEENT: Normocephalic, atraumatic, mucous membranes moist. Heart: IRRegular rate and rhythm, no murmurs. Lungs: Clear to auscultation with no wheezing or crackles. But noted decreased breath sounds bilaterally in view of body habitus Abdomen: Soft, nondistended, nontender, positive bowel sounds. ?No guarding or rebound tenderness. Neurologic: Alert and oriented x3, no gross neurological deficit, and patient able to move all 4 extremities. Extremities: No edema. Skin: Large sacral ulcer in the gluteal region, Decubitus Grade III/IV Objective Labs 05/21/25 04:45 05/21/25 04:45 Labs: Laboratory Results - last 24 hr 05/20/25 05/21/25 17:43 04:45 WBC 16.8 H RBC 2.70 L Hgb 7.7 L Hct 24.6 L MCV 91 MCH 28.5 MCHC 31.3 RDW Std Deviation 59.2 H Plt Count 476 H Neut % (Auto) 67 Lymph % (Auto) 21 [place] % (Auto) 9 Eos % (Auto) 2 Baso % (Auto) 0 Neut # (Auto) 11.3 H Lymph # (Auto) 3.5 [place] # (Auto) 1.5 H Eos # (Auto) 0.3 Baso # (Auto) 0.1 Immature Gran # (Auto) 0.15 H Absolute Nucleated RBC 0.00 Immature Gran % 1 H Nucleated RBC % 0 Sodium 143 143 Potassium 5.1 4.7 Chloride 102 102 Carbon Dioxide 24.4 24.4 Anion Gap 17 H 17 H BUN 127 H* 123 H* Creatinine 4.3 H* 4.4 H* Estim Creat Clear Calc 28.3 L 27.9 L eGFR 15 L 14 L* BUN/Creatinine Ratio 30 H 28 H Glucose 168 H 155 H Calculated Osmolality 329 H 327 H Calcium 9.7 9.3 Corrected Calcium 10.0 9.9 Phosphorus 6.6 H 6.6 H Magnesium 2.6 Total Bilirubin 0.3 AST 16 ALT 11 Alkaline Phosphatase 213 H Total Protein 6.4 Albumin 3.6 3.3 L Globulin 3.1 Albumin/Globulin Ratio 1.1 L ABG Interpretation ABG results: 04/18/25 04/18/25 04/18/25 04:40 06:27 10:30 ABG pH 7.28 L 7.33 L 7.36 ABG pCO2 72 H* 67 H 61 H ABG pO2 132 H 60 L D 60 L ABG HCO3 34 H 35 H 34 H ABG O2 Saturation 100 H 93 93 ABG Base Excess 6 H 7 H 8 H 04/19/25 05/10/25 08:53 07:40 ABG pH 7.47 H D 7.52 H ABG pCO2 45 D 40 ABG pO2 66 L 60 L ABG HCO3 33 H 32 H ABG O2 Saturation 96 94 ABG Base Excess 8 H 8 H Quality Measures Quality Measures none (None, patient is Synagogue and has a bleeding sacral wound) Advance care planning discussed with:: patient Assessment & Plan Assessment Current Active Medications: Generic Name Dose Route Start Last Admin Trade Name Malou PRN Reason Stop Dose Admin Acetaminophen 650 mg 05/01/25 08:47 05/17/25 11:50 Acetaminophen 325 Mg Tablet PO 05/22/25 20:42 650 mg Q6HR PRN Administration pain 1-3 OR Fever >100.4 Hydrocodone Bitart/Acetaminophen 1 tab 05/18/25 19:07 05/19/25 14:34 Hydrocodone/Apap 7.5/325 Tablet PO 05/23/25 19:06 1 tab Q6HR PRN Administration PAIN SCALE 4-10(Mod-Sev Acetylcysteine 3 ml 05/10/25 15:00 05/21/25 07:19 Acetylcysteine Rt Gloria 10% 4 Ml Nebu INH 06/09/25 14:59 3 ml Q8HRRT KOURTNEY Administration Albuterol/Ipratropium 3 ml 05/10/25 15:00 05/21/25 07:20 Albuterol/Ipratropium (Duoneb) Rt Gloria 3 Ml Nebu INH 06/09/25 14:59 3 ml Q8HRRT KOURTNEY Administration Amiodarone HCl 200 mg 05/12/25 13:45 05/21/25 08:27 Amiodarone Hcl 200 Mg Tablet GT 06/11/25 13:44 200 mg QDAY KOURTNEY Administration Dextrose 25 ml 05/12/25 13:47 Dextrose 50%-Water Inj 50 Ml Syringe IV 06/11/25 13:46 Q15MIN PRN BG 50-70 responsive npo pt Dextrose 50 ml 05/12/25 13:48 Dextrose 50%-Water Inj 50 Ml Syringe IV 06/11/25 13:47 Q15MIN PRN BG <50 OR BG <70 & pt unresponsive Gabapentin 100 mg 05/20/25 14:30 05/21/25 06:09 Gabapentin 100 Mg Capsule GT 06/19/25 14:29 100 mg TID KOURTNEY Administration Glucagon 1 mg 05/12/25 13:49 Glucagon Inj 1 Mg Vial IM 06/11/25 13:48 Q15MIN PRN BG <70, and no IV access Albumin Human 25 gm in 100 mls @ 100 mls/min 04/24/25 11:52 Albuminar-25 Ivpb IV PRN PRN DIALYSIS Levofloxacin/Dextrose 750 mg in 150 mls @ 100 mls/hr 05/14/25 21:00 05/20/25 22:50 Levaquin Ivpb IV 05/21/25 20:59 Infused Q48HR@2100 KOURTNEY Infusion Insulin Glargine 38 unit 05/13/25 09:00 05/20/25 08:15 Insulin Glargine (Lantus) 5 Unit/0.05 Ml (Per 5 Units) SC 06/12/25 08:59 38 unit QDAY KOURTNEY Administration Insulin Human Lispro 0 unit 05/12/25 18:00 05/21/25 06:03 Insulin Lispro (Admelog) 1 Unit/0.01 Ml Unit SC 06/11/25 17:59 Not Given Q6HR KOURTNEY Protocol Lansoprazole 30 mg 05/05/25 09:00 05/21/25 08:27 Lansoprazole 30 Mg Tab. GT 06/04/25 08:59 30 mg QDAY KOURTNEY Administration Pharmacy Consult 1 each 04/24/25 08:43 Pharmacy Renal Dose Adjustment 1 Ea XX 05/24/25 08:42 PRN PRN CONSULT Pharmacy Consult 1 each 05/14/25 08:22 Pharmacy Renal Dose Adjustment 1 Ea XX 06/13/25 08:21 PRN PRN CONSULT Sennosides 2 tab 05/02/25 09:00 05/21/25 08:27 Senna Tablet GT 06/01/25 08:59 2 tab QDAY KOURTNEY Administration Protocol Sevelamer Carbonate 0.8 gm 05/20/25 09:45 05/21/25 08:27 Sevelamer Carbonate 0.8 Gm Packet (Non-Formulary) GT 06/19/25 09:44 0.8 gm TIDWM KOURTNEY Administration Sodium Hypochlorite 473 ml 05/06/25 21:00 05/20/25 22:00 Sod Hypochlorite 1/4 Str 473 Ml Btl IRRIG 06/05/25 20:59 1 applicatio BID KOURTNEY Administration Plan Mr. Ortega is a 64-year-old male, Synagogue with a past medical history of hypertension, diabetes mellitus type 2, history of atrial fibrillation, CHF HFpEF 65%, grade 3 diastolic dysfunction, right heart failure, RSVP 47, moderate to severe ALB calsifications with no stenosis, status post tracheostomy, s/p PEG Tube at [facility], bariatric team, history of dyspahagia, extensive decubitus ulcers, CKD, history of anemia, history of Diego-en- Y gastric bypass, BASIA/OHS, and morbid obesity. Patient was upgraded to ICU for a third time with in acute respiratory respiratory failure secondary to mucous plug and shock, likely cardiogenic shock secondary to complete heart block requiring pressors and downgraded again # A-fib with RVR - s/p cardioversion ---> CVR # Bradycardia and questionable complete heart block, resolved - Patient was hypoxic and was transferred to the ICU on 05/09/2025. - Cardiology was consulted 05/09/2025 for significant bradycardia requiring external temporary transcutaneous pacing. - Plan was to place a temporary transvenous pacemaker if the patient continues to be bradycardic as he was 100% dependent on the transcutaneous pacing. - Bronchoscopy was performed which showed small mucous plug which was removed and patient rhythm was back to his atrial fibrillation with RVR. - Patient was on dopamine at that point of time. Patient blood pressure was on the lower side and was unstable and required cardioversion x 1. - Patient was on levophed and phenylephrine for a short period of time. - Patient is presently ventilator dependent and has a tracheostomy in place along with a jejunostomy. Plan - Recommend to continue telemetry monitoring - In view of ongoing sacral ulcer with recurrent infections, pacemaker placement cannot be done. But fortunately patient did not have any further episodes of bradycardia. So no need of pacemaker placement as of now - Recommended to continue amiodarone 200 Mg G-tube once daily - As patient had large decubitus ulcer and has tendency to bleed, anticoagulation is held for now # H/O CHF, HFpEF 65% #Diastolic dysfunction, grade 3 #Pulmonary hypertension #BASIA/OHS #Moderate to severe a AOV calcification with no stenosis #Moderate Right Pleural Effusion - Patient has a past medical history of right heart failure, Diastolic dysfunction, and HFpEF 65% likely in the setting of cardiomypoathy secondary to morbid obesity form BASIA/OHS. - [place] [facility] 03/19/2025: RAP 8, PAP 27, PCWP 7. - Echo (04/29/2025): Normal LV size and function. Estimated EF of 65%. Grade III Diastolic Dysfunction.Right ventricle is dilated with mild RV dysfunction RVSP 47mmHg. RAP 15mmHg.Severe biatrial dilation.Moderate to Severe AOV calcification with no stenosis <ild tricuspid regurgitation. No pericardial effusion. - Echo (05/14/2025) : Normal LV size and function. Estimated EF is 55 to 60%. Severely RA dilated right ventricle as well as right atrium. IVS flattening noted both in systole and diastole indicating both pressure and volume overload Plan -Recommended to hold diuresis for now in view of uptrending BUN and creatinine -Pt will be getting dialysis -K >4 and Mg >2 #Acute on Chronic Respiratory Failure secondary to mucus plug #Healthcare-Associated Pneumonia #Leukocytosis #Large Sacral Decubitus Ulcer s/p excisional debridement (05/02/2025) #CKD stage III #Jejunostomy #History of abdominal abscess s/p percutaneous drainage #Diabetes Mellitus Type 2 non insulin depedent #Normocytic Anemia Management of rest of the medical conditions as per primary team and other consultants. Thank you for the consult and allowing us to participate in the care of the patient. Cardiology will continue to follow. Patient plan of care was discussed with the Leasing Assistant Dr. Alvaro Ahumada, PGY2
[2025-05-20] MEDS: LEVOFLOXACIN/D5W 750MG IVPB 750 MG/150 ML BAG 100 MG IV (21:20)
[2025-05-21] VITALS (28 sets, daily range): BP systolic 92–134; BP diastolic 37–91; PULSE 52–120; RESP 14–23; TEMP 36.1–36.7; O2SAT 98–100; BMI 67.8
--- NOTE | 2025-05-21 | XR_ITS ---
Ultrasound-guided needle placement right Temporary dialysis catheter insertion, percutaneous AP chest, portable, single view. Date and time of procedure: May 21, 2025 at 12 noon Informed consent provided Technique: A timeout was completed verifying correct patient, procedure, site, positioning, and special equipment if applicable. The patient was placed in a dependent position appropriate for dialysis catheter placement based on the vein to be cannulated. The patient'sright neck was prepped and draped in sterile fashion. Maximum Sterile Barrier Technique used including cap, mask, sterile gown, sterile gloves, and sterile full body drape. If ultrasound technique used: sterile gel and sterile probe covers. Hand Hygiene performed using proper scrub, soap and water, or alcohol-based hand rub. 1% lidocaine was used to anesthetize the surrounding skin area Site right portable apparatus utilized to confirm patency of the right internal jugular vein. Utilizing ultrasonographic guidance successful 21-gauge needle puncture into the right internal jugular vein Ultrasound images were recorded and stored. Vessel micropuncture was performed with 21-gauge needle. 0.18 wire guide is introduced into the vein. 0.18 wire is introduced into the vena cava under fluoroscopy. 5 Kosovan catheter placed over the wire guide, 0.35 wire guide then introduced into the catheter followed by dilator is and a 13 Kosovan 15 cm temporary dialysis catheter in proper position after obtaining a chest x-ray Attending radiologist was present for the entire procedure Estimated blood loss2 cc. The patient tolerated the procedure well and there were no complications Impression: Successful ultrasound-guided needle placement right internal jugular vein Successful temporary dialysis catheter insertion, percutaneous AP chest demonstrates satisfactory position dialysis catheter. . May use dialysis catheter.
[2025-05-21] MEDS: INSULIN LISPRO (AdmeLOG) 1 UNIT/0.01 ML UNIT SC (00:28)
[2025-05-21] MEDS: GABAPENTIN 100 MG CAPSULE GT ×3 (06:09→22:05)
[2025-05-21 06:17] LABS: Basophils # (Auto) 0.1 Thou/mm3 (0.0-0.2); Basophils % (Auto) 0 % (0-2.5); Eosinophils # (Auto) 0.3 Thou/mm3 (0.0-0.5); Eosinophils % (Auto) 2 % (0-10); Hematocrit 24.6 % (41.0-53.0); Immature Granulocytes Auto 0.15 Thou/mm3 (0.00-0.00); Lymphocytes # (Auto) 3.5 Thou/mm3 (1.0-4.8); Lymphocytes % (Auto) 21 % (10-50); Mean Corpuscular HGB Conc 31.3 g/dl (31.0-37.0); Mean Corpuscular Hemoglobin 28.5 pg (25.0-35.0); Mean Corpuscular Volume 91 fL (80-100); Monocytes # (Auto) 1.5 Thou/mm3 (0.0-0.8); Monocytes % (Auto) 9 % (0-12); Neutrophils # (Auto) 11.3 Thou/mm3 (1.8-7.7); Neutrophils % (Auto) 67 % (37-80); Nucleated Red Blood Cell # 0.00 Thou/mm3 (0.00-0.00); Nucleated Red Blood Cell % 0 /100 WBC (0); Platelet Count 476 Thou/mm3 (140-440); RDW Standard Deviation 59.2 fL (35.1-43.9); Red Blood Count 2.70 Miln/mm3 (4.50-5.90); White Blood Count 16.8 Thou/mm3 (3.8-10.6)
[2025-05-21 06:21] LABS: Hemoglobin 7.7 g/dL (13.5-16.0)
[2025-05-21] MEDS: ACETYLCYSTEINE RT SOL 10% 4 ML NEBU 3 ML INH ×3 (07:19→22:17)
[2025-05-21] MEDS: ALBUTEROL/IPRATROPIUM (Duoneb) RT SOL 3 ML NEBU INH ×3 (07:20→22:18)
[2025-05-21 07:25] LABS: Alanine Aminotransferase 11 U/L (10-49); Albumin, Serum 3.3 gm/dL (3.4-4.8); Albumin/Globulin Ratio 1.1 (1.2-2.2); Alkaline Phosphatase 213 U/L (46-116); Anion Gap 17 (7-16); Aspartate Amino Transferase 16 U/L (0-34); BUN/Creatinine Ratio 28 Ratio (12-20); Bilirubin,Total 0.3 mg/dL (0.3-1.2); Calcium 9.3 mg/dL (8.3-10.6); Calcium (Corrected) 9.9 mg/dL (8.5-10.1); Carbon Dioxide 24.4 mMol/L (20.0-31.0); Chloride 102 mMol/L (98-107); Creatinine (Component) 4.4 mg/dL (0.6-1.3); Estimated Creatinine Clearance 27.9 mL/min (>60); Globulin 3.1 gm/dL (2.3-3.5); Glucose 155 mg/dL (74-106); Magnesium 2.6 mg/dL (1.6-2.6); Osmolality,Calculated 327 (275-295); Phosphorous 6.6 mg/dL (2.4-5.1); Potassium 4.7 mMol/L (3.4-5.1); Sodium 143 mMol/L (136-145); Total Protein 6.4 gm/dL (5.7-8.2); eGFR 14 See Note
[2025-05-21 07:27] LABS: Blood Urea Nitrogen 123 mg/dL (9-23)
[2025-05-21] MEDS: LANSOPRAZOLE 30 MG TAB.RAP.DR GT (08:27)
[2025-05-21] MEDS: SEVELAMER CARBONATE 0.8 GM PACKET (NON-FORMULARY) GT (08:27)
[2025-05-21] MEDS: AMIODARONE HCL 200 MG TABLET GT (08:27)
[2025-05-21] MEDS: INSULIN GLARGINE (Lantus) 5 UNIT/0.05 ML (PER 5 UNITS) 38 UNIT SC (08:28)
[2025-05-21] MEDS: SOD HYPOCHLORITE 1/4 STR 473 ML BTL IRRIG ×2 (08:29→21:09)
--- NOTE | 2025-05-21 11:07 | PD.RESPRO ---
Documentation for date of: 05/21/25 Subjective Subjective Interval history: Mr. Ortega is a 64-year-old male with a past medical history of type 2 diabetes mellitus, history of ATN, A-fib, hypertension, severe right-sided heart failure, HFpEF, severe BASIA, status post tracheostomy and jejunostomy, patient was previously admitted here for hypoxic respiratory failure requiring mechanical ventilation, was later transferred out to [facility] for jejunostomy tube placement, complicated by abdominal abscess, patient is now transferred back to [facility] ([facility] for further management. The patient was initially noted to have pneumonia and acute hypoxic respiratory failure, requiring mechanical ventilation, nephrology was consulted as patient's renal function continues to worsen. Patient had previously required hemodialysis for ATN, but is a poor dialysis candidate outpatient. Patient did not have any acute events overnight. Patient does not have any complaints/concerns. Planning for temporary HD catheter placement tomorrow. 05/20/2025 patient currently seen in telemetry. No acute overnight events. Took over the care from Dr. Minor. Urine output seems to be acceptable. However azotemia persists. Had a long conversation with the patient and he agreed for temporary dialysis. Labs remarkable for Hgb 7.9, BUN 127, Cr 4.3, eGFR 15, Phos 6.6 05/21/2025 No acute overnight events. Patient states he is doing okay and has no new complaints/concerns. Urine output of 2.2L last 24 hours. However azotemia persists. Temporary dialysis catheter today continues to be the plan. Labs remarkable for Hgb 7.7, BUN 123, Cr 4.4, eGFR 14, Phos 6.6 Exam Vital Signs Temp Pulse Resp BP Pulse Ox O2 Del Method O2 Flow Rate 97.2 F 100 16 92/74 100 Mechanical Ventilation 10 05/21/25 08:00 05/21/25 08:27 05/21/25 08:00 05/21/25 08:27 05/21/25 08:00 05/21/25 08:00 05/21/25 08:00 FiO2 40 05/21/25 08:00 Narrative Exam GENERAL APPEARANCE: Awake, alert and oriented. No acute distress. NECK: Neck supple, no JVD or bruit, CARDIOVASCULAR: Heart rate regular, no murmurs LUNGS/CHEST: Lungs CTAB, no SOB ABDOMEN: Soft, nontender, nondistended. No masses. Normal bowel sounds. EXTREMITIES: 2+ edema in the lower extremities SKIN/MSK: Skin in warm, dry and intact without rashes or lesions. Appropriate color for ethnicity. Nailbeds pink with no cyanosis or clubbing. PSYCHIATRIC: Appropriate mood and affect. NEUROLOGICAL : No neurological deficits Objective Labs 05/21/25 04:45 05/21/25 04:45 Labs: Laboratory Results - last 24 hr 05/20/25 05/21/25 17:43 04:45 WBC 16.8 H RBC 2.70 L Hgb 7.7 L Hct 24.6 L MCV 91 MCH 28.5 MCHC 31.3 RDW Std Deviation 59.2 H Plt Count 476 H Neut % (Auto) 67 Lymph % (Auto) 21 [place] % (Auto) 9 Eos % (Auto) 2 Baso % (Auto) 0 Neut # (Auto) 11.3 H Lymph # (Auto) 3.5 [place] # (Auto) 1.5 H Eos # (Auto) 0.3 Baso # (Auto) 0.1 Immature Gran # (Auto) 0.15 H Absolute Nucleated RBC 0.00 Immature Gran % 1 H Nucleated RBC % 0 Sodium 143 143 Potassium 5.1 4.7 Chloride 102 102 Carbon Dioxide 24.4 24.4 Anion Gap 17 H 17 H BUN 127 H* 123 H* Creatinine 4.3 H* 4.4 H* Estim Creat Clear Calc 28.3 L 27.9 L eGFR 15 L 14 L* BUN/Creatinine Ratio 30 H 28 H Glucose 168 H 155 H Calculated Osmolality 329 H 327 H Calcium 9.7 9.3 Corrected Calcium 10.0 9.9 Phosphorus 6.6 H 6.6 H Magnesium 2.6 Total Bilirubin 0.3 AST 16 ALT 11 Alkaline Phosphatase 213 H Total Protein 6.4 Albumin 3.6 3.3 L Globulin 3.1 Albumin/Globulin Ratio 1.1 L ABG Interpretation ABG results: 04/18/25 04/18/25 04/18/25 04:40 06:27 10:30 ABG pH 7.28 L 7.33 L 7.36 ABG pCO2 72 H* 67 H 61 H ABG pO2 132 H 60 L D 60 L ABG HCO3 34 H 35 H 34 H ABG O2 Saturation 100 H 93 93 ABG Base Excess 6 H 7 H 8 H 04/19/25 05/10/25 08:53 07:40 ABG pH 7.47 H D 7.52 H ABG pCO2 45 D 40 ABG pO2 66 L 60 L ABG HCO3 33 H 32 H ABG O2 Saturation 96 94 ABG Base Excess 8 H 8 H Quality Measures Quality Measures none (None, patient is Latter-day and has a bleeding sacral wound) Advance care planning discussed with:: patient Assessment & Plan Assessment Current Active Medications: Generic Name Dose Route Start Last Admin Trade Name Freq PRN Reason Stop Dose Admin Acetaminophen 650 mg 05/01/25 08:47 05/17/25 11:50 Acetaminophen 325 Mg Tablet PO 05/22/25 20:42 650 mg Q6HR PRN Administration pain 1-3 OR Fever >100.4 Hydrocodone Bitart/Acetaminophen 1 tab 05/18/25 19:07 05/19/25 14:34 Hydrocodone/Apap 7.5/325 Tablet PO 05/23/25 19:06 1 tab Q6HR PRN Administration PAIN SCALE 4-10(Mod-Sev Acetylcysteine 3 ml 05/10/25 15:00 05/21/25 07:19 Acetylcysteine Rt Gloria 10% 4 Ml Nebu INH 06/09/25 14:59 3 ml Q8HRRT KOURTNEY Administration Albuterol/Ipratropium 3 ml 05/10/25 15:00 05/21/25 07:20 Albuterol/Ipratropium (Duoneb) Rt Gloria 3 Ml Nebu INH 06/09/25 14:59 3 ml Q8HRRT KOURTNEY Administration Amiodarone HCl 200 mg 05/12/25 13:45 05/21/25 08:27 Amiodarone Hcl 200 Mg Tablet GT 06/11/25 13:44 200 mg QDAY KOURTNEY Administration Dextrose 25 ml 05/12/25 13:47 Dextrose 50%-Water Inj 50 Ml Syringe IV 06/11/25 13:46 Q15MIN PRN BG 50-70 responsive npo pt Dextrose 50 ml 05/12/25 13:48 Dextrose 50%-Water Inj 50 Ml Syringe IV 06/11/25 13:47 Q15MIN PRN BG <50 OR BG <70 & pt unresponsive Gabapentin 100 mg 05/20/25 14:30 05/21/25 06:09 Gabapentin 100 Mg Capsule GT 06/19/25 14:29 100 mg TID KOURTNEY Administration Glucagon 1 mg 05/12/25 13:49 Glucagon Inj 1 Mg Vial IM 06/11/25 13:48 Q15MIN PRN BG <70, and no IV access Albumin Human 25 gm in 100 mls @ 100 mls/min 04/24/25 11:52 Albuminar-25 Ivpb IV PRN PRN DIALYSIS Levofloxacin/Dextrose 750 mg in 150 mls @ 100 mls/hr 05/14/25 21:00 05/20/25 22:50 Levaquin Ivpb IV 05/21/25 20:59 Infused Q48HR@2100 KOURTNEY Infusion Insulin Glargine 38 unit 05/13/25 09:00 05/21/25 08:28 Insulin Glargine (Lantus) 5 Unit/0.05 Ml (Per 5 Units) SC 06/12/25 08:59 38 unit QDAY KOURTNEY Administration Insulin Human Lispro 0 unit 05/12/25 18:00 05/21/25 06:03 Insulin Lispro (Admelog) 1 Unit/0.01 Ml Unit SC 06/11/25 17:59 Not Given Q6HR [facility] Protocol Lansoprazole 30 mg 05/05/25 09:00 05/21/25 08:27 Lansoprazole 30 Mg Tab. GT 06/04/25 08:59 30 mg QDAY KOURTNEY Administration Pharmacy Consult 1 each 04/24/25 08:43 Pharmacy Renal Dose Adjustment 1 Ea XX 05/24/25 08:42 PRN PRN CONSULT Pharmacy Consult 1 each 05/14/25 08:22 Pharmacy Renal Dose Adjustment 1 Ea XX 06/13/25 08:21 PRN PRN CONSULT Sennosides 2 tab 05/02/25 09:00 05/21/25 08:27 Senna Tablet GT 06/01/25 08:59 2 tab QDAY KOURTNEY Administration Protocol Sevelamer Carbonate 0.8 gm 05/20/25 09:45 05/21/25 08:27 Sevelamer Carbonate 0.8 Gm Packet (Non-Formulary) GT 06/19/25 09:44 0.8 gm TIDWM KOURTNEY Administration Sodium Hypochlorite 473 ml 05/06/25 21:00 05/21/25 08:29 Sod Hypochlorite 1/4 Str 473 Ml Btl IRRIG 06/05/25 20:59 1 applicatio BID KOURTNEY Administration Plan In summary, Mr. Ortega is a 64-year-old male with past medical history of DM2, hypertension, A-fib, and Jehova's witness was admitted to the ICU on 02/27/2025 for shock and acute on chronic hypoxic respiratory failure. He is s/p laparoscopic J-tube placement from [facility]. #Acute kidney injury-- seems to be in Ischemic ATN #Fluid overload Patient was admitted with acute kidney injury likely ischemic acute tubular necrosis, received temporary hemodialysis catheter placed 04/24, receiving dialysis had 1 L removed on 04/24, 2 L on 04/25, 2.14 on 04/26, 2.1 L on 04/29; temporary dialysis catheter discontinued on 05/06 Continues to need close monitoring given worsening kidney function tests of BUN 123, Cr 4.4, eGFR 14, Phos 6.6 Discussed with patient today need for hemodialysis. Patient initially refused but after multiple attempts of counseling and explaining risks and benefits, including , patient was eventually agreeable. Plan: -Plan for IR for temporary dialysis catheter placement along with dialysis today. -Unfortunately IR cannot do permanent catheter or temporary catheter due to his BMI. -Monitor I&O's -Avoid nephrotoxic agents -Renally dose medication #Acute on Chronic Respiratory Failure secondary to mucous plug #Healthcare-Associated Pneumonia #Leukocytosis #Paroxysmal atrial fibrillation #Right diastolic CHF #Decubitus ulcer #Chronic back pain #Jejunostomy tube #Normocytic normochromic anemia #Acute on Chronic Hypoxic Hypercapnic Respiratory Failure #Obesity hypoventilation syndrome and obstructive sleep apnea #Tracheostomy #Hx of A-fib #Right internal jugular venous thrombosis #Right arm swelling #Morbid obesity #DM2 Above handled by primary hospitalist team Patient seen and care discussed with my attending physician, Dr. Teressa Fox MD PGY-1 Internal Medicine Attending Provider Attestation/Addendum Patient seen and examined with resident physician Dr. Fox. Note reviewed, agree with findings and recommendations. BUN/creatinine elevated again- ?? going into ATN. Edema ++ Labs 3 times weekly with pediatric tubes due to his L[employer] status. Had a long conversation with the patient-agreed for temporary dialysis. Unfortunately IR cannot do permanent catheter -- agreed to do temporary catheter due to his BMI. This morning he also had some trouble with breathing and noted ICU planning to do bronchoscopy tomorrow to adjust the tracheostomy. 4pm-dialysis catheter placed by Dr. Galicia in the right IJ. patient currently seen on dialysis. Tolerating dialysis without any problems. Hemodialysis for 2 hours, 2K, ultrafiltration 1 L, Epogen 6000, no heparin ordered. Plan of care discussed with the dialysis nurse. Please see dialysis flowsheet for further details. Next dialysis will be scheduled for tomorrow. He will need LTAC placement with dialysis.
--- NOTE | 2025-05-21 11:25 | PC.NURSE ---
Pt complaining of not being able to breath. O2 satuartion is 99 on mechanical ventilator. Called Respiratory and Dr. Tobar and asked to come to bedside. Dr. Mendoza and team came to bedside to assess patient. Dr. Ruth came to bedside to assess patient. Suctioned patient, checked cuff inflation, saline flush to clear line. Dr. Ruth will do bedside bronchoscopy to check placement of tracheostomy. Explained procedure to patient and obtained consent. O2 saturation is 99. .
[2025-05-21 11:52] LABS: INR 1.1 (0.9-1.3); Partial Thromboplastin Time 29.2 Seconds (22.0-36.0); Prothrombin Time 12.4 Seconds (9.0-12.2)
--- NOTE | 2025-05-21 12:11 | XR_ITS ---
Examination: AP chest single view Technique one AP portable semiupright chest single view Date and time: May 21, 2025 1229 hours Comparison May 11, 2025 INDICATIONS: Post temporary dialysis catheter placement. FINDINGS: Right internal jugular temporary dialysis catheter tip SVC satisfactory position No pneumothorax Tracheostomy tube tip 4.6 cm above nunu Heart failure pattern with enlarged cardiac contour and prominent vascular congestion, edema versus pneumonia at the lung bases IMPRESSION: Right internal jugular temporary dialysis catheter satisfactory position, no pneumothorax
[2025-05-21] MEDS: HEPARIN SOD INJ 1000 UNIT/ML VIAL 2700 UNIT INDWELLCAT (12:35)
--- NOTE | 2025-05-21 13:39 | ESPR_ITS ---
Documentation for date of: 05/21/25 Senior resident attestation: Patient evaluated and examined at the bedside, plan of care discussed with rest of the team including my attending physician, except as noted. Patient was complaining of respiratory distress this morning, and that his mouth feels dry and he struggling to breathe him. ICU/jewel grinder Dr. Ruth saw the patient and adjusted his patient ventilator settings, started him on pressure support ventilation. Patient reported feeling better, but later at the time of our rounding, patient was visibly uncomfortable trying to breathe. Saturating well at the time, dr Ruth was called who reevaluated the patient, deflated tracheal cuff, which helped Mr. Ortega with breathing better, it was decided patient would benefit from tracheal repositioning and bronchoscopy. Patient will be scheduled for bronchoscopy tomorrow morning. #ATN progressing to ESRD?temporary dialysis catheter placed by IR, initiating hemodialysis. Patient will require long-term renal replacement therapy, will be discharged to LTAC once stable. #Acute hypoxic respiratory failure, status post tracheostomy?on mechanical ventilation currently pressure support, likely malfunctioning tracheostomy, will require realignment and bronchoscopy for further evaluation. #HCAP?repeated instances of HCAP/ventilator associate pneumonia, treated with levofloxacin based on most recent sputum culture sensitivity. #Atrial fibrillation?rate controlled with amiodarone, was on anticoagulation initially, but due to severe anemia secondary to bleeding from sacral ulcer, decision was made to hold anticoagulation. Patient is a [employer], received IV iron supplementation. #Decubitus ulcer?wound care following the patient. Currently bleeding is controlled. Quresh PGY3 Subjective Subjective Interval history: No acute events overnight. Patient seen and examined at bedside this AM. Reported mouth dryness, updated oral care and swabbing for patient. Denies chest pain and shortness of breath, no further complaints at this time. Had 2 bowel movements last night. Labs and vitals were reviewed. WBC downtrending, now 16.6. BUN and creatinine are still elevated but stable. Phosphorus is high at 6.6, continuing [place]. Continue plan for temporary catheter placement today, also plan for hemodialysis session after placement. Later in morning, patient was having difficulty breathing, per Dr. Malli likely due to tracheostomy misalignment. Consulted ICU for tracheostomy adjustment. Review of systems otherwise negative except what is mentioned above. Exam Vital Signs Temp Pulse Resp BP Pulse Ox O2 Del Method O2 Flow Rate 98.1 F 120 H 17 124/91 H 100 Mechanical Ventilation 10 05/21/25 12:00 05/21/25 12:00 05/21/25 12:00 05/21/25 12:00 05/21/25 12:00 05/21/25 12:00 05/21/25 12:00 FiO2 40 05/21/25 12:00 Narrative Exam Physical Exam: Constitutional: Alert, oriented x 3 and no acute distress. Nods and expresses self to questions, writes on white board for communication. Elderly male, morbidly obese. HEENT: Vision grossly intact. Patent nares. Trachea midline. Tracheostomy tube in situ, exit site clean. Mouth dry. Respiratory: Chest normal on inspection and decreased air entry in all lung sims, transmitted sounds and congestion on anterior chest wall, middle and upper lobes. Cardiovascular: S1 and S2 audible, RRR. No murmurs carotid bruit. No gross JVD. Abdominal: Soft, obese and non tender to palpation in all quadrants. BS +. Jejunostomy tube in situ, exit site clean Genitourinary: No bladder tenderness, no flank pain. Normal to palpation Musculoskeletal: Extremities tone within normal limits. Mild edema in right upper extremity, improved upon placing on pillow. No lower extremity edema bilaterally. Neurological: CN II - XII grossly intact. Extremity motor and sensation grossly intact. Extremities: 1+ pitting lower extremity edema bilaterally. Skin: Warm, dry and intact. Large sacral decubitus ulcer, necrotic tissue noted. No purulent drainage noted. Cleanly packed with dressings. Psychiatric: Patient has good affect, is cooperative Objective Labs 05/25/25 05:40 05/25/25 05:40 Labs: Laboratory Results - last 24 hr 05/20/25 05/21/25 05/21/25 17:43 04:45 11:24 WBC 16.8 H RBC 2.70 L Hgb 7.7 L Hct 24.6 L MCV 91 MCH 28.5 MCHC 31.3 RDW Std Deviation 59.2 H Plt Count 476 H Neut % (Auto) 67 Lymph % (Auto) 21 Rolette % (Auto) 9 Eos % (Auto) 2 Baso % (Auto) 0 Neut # (Auto) 11.3 H Lymph # (Auto) 3.5 Rolette # (Auto) 1.5 H Eos # (Auto) 0.3 Baso # (Auto) 0.1 Immature Gran # (Auto) 0.15 H Absolute Nucleated RBC 0.00 Immature Gran % 1 H Nucleated RBC % 0 PT 12.4 H INR 1.1 APTT 29.2 Sodium 143 143 Potassium 5.1 4.7 Chloride 102 102 Carbon Dioxide 24.4 24.4 Anion Gap 17 H 17 H BUN 127 H* 123 H* Creatinine 4.3 H* 4.4 H* Estim Creat Clear Calc 28.3 L 27.9 L eGFR 15 L 14 L* BUN/Creatinine Ratio 30 H 28 H Glucose 168 H 155 H Calculated Osmolality 329 H 327 H Calcium 9.7 9.3 Corrected Calcium 10.0 9.9 Phosphorus 6.6 H 6.6 H Magnesium 2.6 Total Bilirubin 0.3 AST 16 ALT 11 Alkaline Phosphatase 213 H Total Protein 6.4 Albumin 3.6 3.3 L Globulin 3.1 Albumin/Globulin Ratio 1.1 L ABG Interpretation ABG results: 04/18/25 04/18/25 04/18/25 04:40 06:27 10:30 ABG pH 7.28 L 7.33 L 7.36 ABG pCO2 72 H* 67 H 61 H ABG pO2 132 H 60 L D 60 L ABG HCO3 34 H 35 H 34 H ABG O2 Saturation 100 H 93 93 ABG Base Excess 6 H 7 H 8 H 04/19/25 05/10/25 08:53 07:40 ABG pH 7.47 H D 7.52 H ABG pCO2 45 D 40 ABG pO2 66 L 60 L ABG HCO3 33 H 32 H ABG O2 Saturation 96 94 ABG Base Excess 8 H 8 H Quality Measures Quality Measures none (None, patient is Congregation and has a bleeding sacral wound) Advance care planning discussed with:: patient Assessment & Plan Assessment Current Active Medications: Generic Name Dose Route Start Last Admin Trade Name Freq PRN Reason Stop Dose Admin Acetaminophen 650 mg 05/01/25 08:47 05/17/25 11:50 Acetaminophen 325 Mg Tablet PO 05/22/25 20:42 650 mg Q6HR PRN Administration pain 1-3 OR Fever >100.4 Hydrocodone Bitart/Acetaminophen 1 tab 05/18/25 19:07 05/19/25 14:34 Hydrocodone/Apap 7.5/325 Tablet PO 05/23/25 19:06 1 tab Q6HR PRN Administration PAIN SCALE 4-10(Mod-Sev Acetylcysteine 3 ml 05/10/25 15:00 05/21/25 07:19 Acetylcysteine Rt Gloria 10% 4 Ml Nebu INH 06/09/25 14:59 3 ml Q8HRRT KOURTNEY Administration Albuterol/Ipratropium 3 ml 05/10/25 15:00 05/21/25 07:20 Albuterol/Ipratropium (Duoneb) Rt Gloria 3 Ml Nebu INH 06/09/25 14:59 3 ml Q8HRRT KOURTNEY Administration Amiodarone HCl 200 mg 05/12/25 13:45 05/21/25 08:27 Amiodarone Hcl 200 Mg Tablet GT 06/11/25 13:44 200 mg QDAY KOURTNEY Administration Dextrose 25 ml 05/12/25 13:47 Dextrose 50%-Water Inj 50 Ml Syringe IV 06/11/25 13:46 Q15MIN PRN BG 50-70 responsive npo pt Dextrose 50 ml 05/12/25 13:48 Dextrose 50%-Water Inj 50 Ml Syringe IV 06/11/25 13:47 Q15MIN PRN BG <50 OR BG <70 & pt unresponsive Gabapentin 100 mg 05/20/25 14:30 05/21/25 06:09 Gabapentin 100 Mg Capsule GT 06/19/25 14:29 100 mg TID KOURTNEY Administration Glucagon 1 mg 05/12/25 13:49 Glucagon Inj 1 Mg Vial IM 06/11/25 13:48 Q15MIN PRN BG <70, and no IV access Albumin Human 25 gm in 100 mls @ 100 mls/min 04/24/25 11:52 Albuminar-25 Ivpb IV PRN PRN DIALYSIS Levofloxacin/Dextrose 750 mg in 150 mls @ 100 mls/hr 05/14/25 21:00 05/20/25 22:50 Levaquin Ivpb IV 05/21/25 20:59 Infused Q48HR@2100 KOURTNEY Infusion Insulin Glargine 38 unit 05/13/25 09:00 05/21/25 08:28 Insulin Glargine (Lantus) 5 Unit/0.05 Ml (Per 5 Units) SC 06/12/25 08:59 38 unit QDAY KOURTNEY Administration Insulin Human Lispro 0 unit 05/12/25 18:00 05/21/25 12:11 Insulin Lispro (Admelog) 1 Unit/0.01 Ml Unit SC 06/11/25 17:59 Not Given Q6HR KOURTNEY Protocol Lansoprazole 30 mg 05/05/25 09:00 05/21/25 08:27 Lansoprazole 30 Mg Tab. GT 06/04/25 08:59 30 mg QDAY KOURTNEY Administration Pharmacy Consult 1 each 05/14/25 08:22 Pharmacy Renal Dose Adjustment 1 Ea XX 06/13/25 08:21 PRN PRN CONSULT Sennosides 2 tab 05/02/25 09:00 05/21/25 08:27 Senna Tablet GT 06/01/25 08:59 2 tab QDAY KOURTNEY Administration Protocol Sevelamer Carbonate 0.8 gm 05/20/25 09:45 05/21/25 12:11 Sevelamer Carbonate 0.8 Gm Packet (Non-Formulary) GT 06/19/25 09:44 Not Given TIDWM KOURTNEY Sodium Hypochlorite 473 ml 05/06/25 21:00 05/21/25 08:29 Sod Hypochlorite 1/4 Str 473 Ml Btl IRRIG 06/05/25 20:59 1 applicatio BID KOURTNEY Administration Plan Patient is a 64-year-old male with morbid obesity with subsequent obesity hypoventilation syndrome requiring tracheostomy and J-tube placement, hypertension, type 2 diabetes, atrial fibrillation, right internal jugular DVT and acute kidney injury secondary to ischemic ATN requiring multiple sessions of hemodialysis and sacral ulcers status post wound VAC currently being treated for acute on chronic hypoxic respiratory failure and ischemic ATN. Pending dialysis catheter placement today, anticipate discharge to LTAC. #Acute kidney injury-suspicion of ischemic ATN, resolved #Fluid overload #Acute on chronic hypoxic respiratory failure, improving. 04/20 ? Attempt was made to place Fuller catheter however unable to pass catheter due to significant resistance and attempt was terminated. Discussed with nursing about possibility of weighing briefs daily. Patient had temporary hemodialysis catheter placed 04/24, receiving dialysis had 1 L removed on 04/24, 2 L on 04/25, 2.14 on 04/26, 2.1 L on 04/29; temporary dialysis catheter discontinued on 05/06 Patient being followed by nephrology, nephrology agrees with diuresis for now, will need close monitoring, poor candidate for dialysis due to body habitus and also has chronic anemia with wound bleeding from sacral region-boat captain did discuss with patient in detail, he verbalizes understanding. Bumex held on 05/15 due to worsening creatinine, continues to worsen. Due to lack of improvement despite diuretic holiday, discussed with patient today need for hemodialysis in the near future. Patient initially refused but after multiple attempts of counseling and explaining risks and benefits, including , patient was eventually agreeable. Consulted nephrology Dr. Li, continue with plan for hemodialysis placement today. Anticipate dialysis sessions likely today and tomorrow. Plan: -Continue to hold Bumex as patient does not appear fluid overloaded on exam -Nephrology Dr. Li consulted, appreciate recommendations -Plan for hemodialysis catheter placement today and follow with hemodialysis session -Continue antibiotics -Monitor I&O's -Avoid nephrotoxic agents -Renally dose medication #Acute on Chronic Respiratory Failure secondary to mucous plug #Healthcare-Associated Pneumonia #Leukocytosis Patient noted to have acute on chronic respiratory failure, required bronchoscopy w/ mucous plugs removed. Previous sputum Pseudomnas (04/03/2025) 05/09/2025 Bronchial washing culture grew pseudomonas, sensitive to Zosyn Vancomycin (05/09/2025-05/12/25) and doxycycline (05/12-05/13) were discontinued due to nephrotoxicity. Completed Zosyn course (05/09-05/16/25) Of note, patient has history of Pseudomonnas infection 05/21/25: Patient was having difficulty breathing this morning due to tracheostomy misalignment. Consulted ICU, plan for tracheostomy adjustment today. Plan: -Continue Levofloxacin 750 mg every 48 hrs for 7 days due to concern for aspiration PNA (05/14/25-05/21/25) -Blow-by during the day, mechanical ventilation at night as needed at baseline, currently on mechanical ventilation -DuoNeb, Mucomyst and chest physiotherapy scheduled #Paroxysmal atrial fibrillation Per cardiology there is a concern of heart block, tachybradycardia syndrome as well. [id number] score of 3 points indicating 3.2% risk of stroke per year HAS-BLED: 3. High risk of major bleeding 05/13: Discussed with washing tub operator?will start on amiodarone previous dose, 200 mg daily. Per cardiology patient is a poor candidate for pacemaker placement, patient was informed at bedside by cardiology team. He verbalized understanding. Plan: - Continue p.o. amiodarone. - Cardiology consulted, appreciate recommendations - Patient will need anticoagulation, however has low hemoglobin, bleeding wound will defer anticoagulation for now. #Congestive heart failure, HFpEF 65% #Diastolic dysfunction, grade 3 #Pulmonary hypertension #Right heart failure #BASIA/OHS #Moderate to severe a AOV calcification with no stenosis Patient has a past medical history of right heart faillure, Diastolic dysfucntion, and HFpEF 65% likely in the setting of cardiomypoathy seconadary to morbid obesity form BASIA/OHS. Given Cxr noted with prominent vascular congestion, consider repeat BNP, although hemodynamically unstable given pressors but may consider. No pheriphearl edema noted. Cxr (05/09/2025): Mild Heart Failure, Prominent vascular congestion and Moderate to large right pleural effusion Echo (04/29/2025): Normal LV size and function. Estimated EF of 65%. Grade III Diastolic Dysfunction.Right ventricle is dilated with mild RV dysfunction RVSP 47mmHg. RAP 15mmHg.Severe biatrial dilation.Moderate to Severe AOV calcification with no stenosis <ild tricuspid regurgitation. No pericardial effusion. Plan -Continue holding Bumex -Recommended patient to sit up in bed to help relieve IVC pressure -Cardiology consulted -Patient 1500 cc/day fluid restriction, daily weights, tube feeds resumed -K >4 and Mg >2 #Decubitus ulcer status post excisional debridement of sacral decubitus ulcer Recent debridement of large decubitus ulcer on 05/02/2025 likely secondary to morbid obestiy and lack of mobility. 04/29: excisional debridement of sacral decubitus ulcer, washout and placement of wound VAC. 05/02: Patient had significant bleeding overnight, wound VAC leaked. Hemoglobin stable this morning, patient's bleeding from wound overnight was controlled with suture ligation. Wound was assessed by general surgeon, patient was transitioned back to red dry dressings daily. Plan: -Continue wound care #Jejunostomy tube #Abdominal abscess - resolved Patient report said that there was an intra-abdominal abscess that have could have been from a perforated ulcer in the past See also note reviewed, mentions that patient likely had a marginal ulcer, but also was not seen on EGD without, currently patient has no abdominal tenderness and is totally asymptomatic. No current drain at this time Patient is status post laparoscopic J-tube placement and is currently on feeds Patient will continue to have this tube and will likely go to a long-term care facility with this until patient can swallow safely Plan: ? Monitor vitals closely #Normocytic normochromic anemia Multifactorial. Patient's baseline hemoglobin throughout the hospitalization has been in the range 9?11, patient did have some bleeding from wound VAC site on 05/02 which was controlled by suture ligation by general surgery. Had recurrent bleeding and eventually heparin drip was held. - Patient is a Congregation, denies any blood transfusion/blood products - Will repeat CBC as needed #Right internal jugular venous thrombosis #Right arm swelling Continuing free water flushes, patient has gone multiple days of heparin drip since 04/01 Right upper extremity ultrasound May 04-shows right IJ thrombus Plan: ? Continue to hold heparin drip due to recurrent sacral ulcer bleeding #Morbid obesity #DM2 A1C 7.6 on 03/05/2025 Patient has a BMI of 79.5->68.7 Attempted to prescribe tirzepatide to outside pharmacy to bring inpatient however no one is able to pick it up for the patient. Plan: - ISS scale 2 - Hypoglycemia protocol - 38 units of Lantus. Health Maintenance Disposition: Telemetry DVT prophylaxis: None, patient is Congregation and has a bleeding sacral wound GI prophylaxis: Protonix Diet: 2Cal Tube Feeds with 30 cc/hour water flush CODE STATUS: Full code Patient plan of care was discussed with the senior resident, Dr. Tobar, and attending physician, Dr. Mendoza. Meena Dutta, PGY-1 Attending Provider Attestation/Addendum 64-year-old with morbid obesity with subsequent obesity hypoventilation syndrome requiring tracheostomy and J-tube placement, hypertension, type 2 diabetes, atrial fibrillation, right internal jugular DVT and acute kidney injury secondary to ischemic ATN requiring multiple sessions of hemodialysis and sacral ulcers status post wound VAC currently being treated for acute on chronic hypoxic respiratory failure, ischemic ATN. Overnight, patient noted to have significant bleeding from decubitus ulcer and subsequently general surgery was consulted and heparin drip was discontinued. Talked with the patient regarding discontinuation of heparin drip and given that he has a right internal jugular DVT and atrial fibrillation and updated him that he is at risk for strokes and worsening disease progression however he is in agreement to stop the heparin drip for now. In addition, patient is also a [employer]regation and refusing blood product and I counseled him regarding need of blood product and risk of not getting it including worsening disease progression which can lead to cardiac arrest and however he understands and continues to refuse for which we will respect his decision. As of now, patient kidney function to obtain a TDC and initiate hemodialysis. Anemia is stable and patient appears to be stable on mechanical ventilation with stable setting. As of now, plan to continue hemodialysis and mechanical ventilation and reached out to mental health social worker regarding finding LTAC. I reviewed above note and agree with findings and plans. I have also personally examined the patient with medicine team and went over assessment and plan with medical team including manager intern and resident physician.
--- NOTE | 2025-05-21 14:20 | ESCONSULT_ITS ---
<Statement entered by Apolonia Ruth MD - 05/23/25 08:16> TOTAL TIME: 45MINUTES ON DIRECT MEDICAL CARE, MANAGEMENT - COORDINATION AND COUNSELING > 50% OF TOTAL TIME I saw and evaluated the patient. I reviewed the resident?s note and agree with findings and plan as documented in the resident?s note. There is granulation tissue primarily distal to the tracheostomy tube and circumferential. This is causing intraluminal narrowing but not occlusion of the distal end of the tracheostomy tube. Please keep the patient's tracheostomy tube cuff deflated, his ventilation remains adequate with the cuff deflated and his shortness of breath is also significantly improved with the cuff deflated. This will also reduce further potential irritation leading to worsening granulation formation. Strict oral hygiene with abrasive brushing is extremely important to prevent respiratory infections. Solu-Medrol has been started and steroids can be weaned off through a 2-week duration Repeat bronchoscopy in 1 to 2 weeks will be necessary If granulation formation progresses, he will need a referral to a tertiary center with interventional pulmonology possibly Monitor for tracheobronchitis daily. Warning signs will include worsening cough, upper chest pain, change in sputum quantity and color. HPI Data of Consult Patient: new to practice Consult date: 05/21/25 Requesting Physician: Pavel Mendoza MD Admitting Provider: Tres Magana MD Attending Provider: Apolonia Ruth MD Primary Care Provider: Physician No Primary/Family Consult Narrative Reason for consult: Acute respiratory distress History of present illness: Mr. Ortega is a 64-year-old male with past medical history of chronic respiratory failure status post tracheostomy 03/14/2025 at [facility], morbid obesity status post Diego-en-[facility] gastric [facility], type 2 diabetes mellitus, hypertension,, atrial fibrillation, chronic heart failure with preserved ejection fraction, grade 3 diastolic dysfunction, right heart failure, BASIA/OHS, KENIA on CKD currently on dialysis, anemia and chronic decubitus unstageable sacral ulcer status postdebridement 04/29/2025 who is currently admitted to the hospital for KENIA/ATN progressing to ESRD, acute on chronic hypoxic and hypercapnic respiratory failure, recurrent pneumonia. Patient has had a long hospital course, was admitted to [facility] recently and February 2025, patient was intubated due to acute hypercapnic and hypoxic respiratory failure with the progression of hospital course patient required multiple intubations for worsening hypercapnic encephalopathy and respiratory failure. Patient was eventually trached on 03/14/25 by general surgery, tracheostomy done with size 8 extra long cuffed tracheostomy. Further patient was downgraded to telemetry for continued management and possible PEG tube placement, however patient could not have the tube placed by gastroenterology as patient had a very small gastric pouch in setting of Diego-en-Y gastrojejunostomy, was eventually transferred to [facility] for J-tube placement and was transferred back to [facility] on 04/13/2025 for management. For the last month patient had surgical debridement done by general surgeon for unstageable sacral wound, eventually developed fluid overload status for which temporary dialysis catheter was placed receiving 4 sessions of hemodialysis after which patient was weaned off of dialysis and temporary dialysis catheter was discontinued on 05/06. Patient was upgraded to ICU on 05/09/2025 due to symptomatic bradycardia, cardiology was consulted. During the ICU course patient was found to have thick mucus on bronchoscopy done by pulmonology/critical care, patient was noted to have a large mucous plug in left mainstem which was suctioned out. Patient was eventually downgraded back to telemetry on 05/11/2025. Since downgrade patient has developed worsening renal function with fluid overload status requiring temporary hemodialysis catheter placement per nephrology. 05/21/2025: Pulmonology consulted today for acute respiratory distress. Possible tracheostomy misalignment, patient earlier this morning was having difficulty breathing. Patient seen at bedside, transition to pressure support earlier this morning and he continues to have difficulty breathing with increased work of breathing, patient's tracheostomy site assessed during assessment copious amount of thick sputum was noted, patient has been getting chest physiotherapy, Mucomyst and scheduled suctioning per nursing. However once tracheostomy cuff was deflated patient's respiratory distress improved, patient will likely need bronchoscopy to assess tracheostomy site for any granulation tissue or excessive mucus secretion/plug. Patient is scheduled for temporary dialysis catheter placement with interventional radiology today, will plan bronchoscopy after the procedure. cc:: cc: Pavel Mendoza MD Review of Systems Review of Systems Systems Reviewed: All systems reviewed, normal except as documented Past Medical History Past Medical History CARDIAC: Positive Hypertension; Negative Congestive Heart Failure RESPIRATORY: Negative Chronic Obstructive Pulmonary Disease (COPD) GENITOURINARY: Negative Renal Disease ENDOCRINE: Positive Diabetes Mellitus Type 2; Negative Diabetes Mellitus Type 1 Social History SMOKING STATUS: Never smoker Past Medical History Comments PMH COMMENT: PMH: DM2, hypertension, and A-fib Social Hx: Denies any smoking, drugs, admits social drinking Medications: Amlodipine, losartan, glipizide, metformin, metoprolol succinate, gabapentin, and tramadol Exam Vital Signs Temp Pulse Resp BP Pulse Ox O2 Del Method O2 Flow Rate 97.5 F 78 21 H 107/79 100 Mechanical Ventilation 65 05/22/25 08:38 05/22/25 09:31 05/22/25 08:38 05/22/25 09:31 05/22/25 08:38 05/22/25 08:00 05/22/25 08:38 FiO2 50 05/22/25 08:38 Narrative Exam General: Awake. obese. Tracheostomy tube insitu on pressure support HEENT: Normocephalic, atraumatic, mucous membranes moist. Heart: IRRegular rate and rhythm, no murmurs. Lungs: Clear to auscultation with no wheezing or crackles. But noted decreased breath sounds bilaterally in view of body habitus. noted subclavian line on right side Abdomen: Soft, nondistended, nontender, positive bowel sounds. ?No guarding or rebound tenderness. Neurologic: Alert and oriented x3, no gross neurological deficit, and patient able to move all 4 extremities. Extremities: No edema. Skin: Large sacral ulcer in the gluteal region, Decubitus Grade III/IV Results Labs 05/22/25 04:49 05/22/25 00:44 Labs: Short CBC 05/22/25 Range/Units 04:49 WBC 14.5 H (3.8-10.6) Thou/mm3 Hgb 7.6 L (13.5-16.0) g/dL Hct 24.5 L (41.0-53.0) % Plt Count 442 H D (140-440) Thou/mm3 BMP 05/22/25 00:44 Sodium 142 Potassium 4.2 D Chloride 100 Carbon Dioxide 27.2 BUN 87 H Creatinine 3.3 H D Glucose 129 H Calcium 9.0 Liver Function 05/22/25 Range/Units 00:44 Total Bilirubin 0.4 (0.3-1.2) mg/dL AST 15 (0-34) U/L ALT 10 (10-49) U/L Alkaline Phosphatase 201 H (46-116) U/L Albumin 3.4 (3.4-4.8) gm/dL ABG Interpretation ABG results: 04/18/25 04/18/25 04/18/25 04:40 06:27 10:30 ABG pH 7.28 L 7.33 L 7.36 ABG pCO2 72 H* 67 H 61 H ABG pO2 132 H 60 L D 60 L ABG HCO3 34 H 35 H 34 H ABG O2 Saturation 100 H 93 93 ABG Base Excess 6 H 7 H 8 H 04/19/25 05/10/25 08:53 07:40 ABG pH 7.47 H D 7.52 H ABG pCO2 45 D 40 ABG pO2 66 L 60 L ABG HCO3 33 H 32 H ABG O2 Saturation 96 94 ABG Base Excess 8 H 8 H Quality Measures Quality Measures none (None, patient is Taoist and has a bleeding sacral wound) Advance care planning discussed with:: patient Medications Home Medications and Allergies Home Medications ?Medication ?Instructions ?Recorded ?Confirmed ?Type amlodipine 10 mg tablet 10 mg PO 1XD 02/27/25 History gabapentin 600 mg tablet 600 mg PO 3XD 02/27/2504/13 History glipizide 10 mg tablet 10 mg PO 1XD 02/27/25 History losartan 25 mg tablet 25 mg PO 1XD 02/27/25 History metformin 1,000 mg tablet 1,000 mg PO 2XD 02/27/25 History metoprolol succinate 100 mg 100 mg PO 2XD 02/27/25 History tablet,extended release 24 hr tramadol 50 mg tablet 50 mg PO 3XD 02/27/25 History Allergies Allergy/AdvReac Type Severity Reaction Status Date / Time No Known Allergies Allergy Verified 02/27/25 06:45 Visit Medications Acetaminophen (Acetaminophen 325 Mg Tablet) 650 mg PO Q6HR PRN PRN Reason: pain 1-3 OR Fever >100.4 Stop: 05/22/25 20:42 Last Admin: 05/17/25 11:50 Dose: 650 mg Hydrocodone Bitart/Acetaminophen (Hydrocodone/Apap 7.5/325 Tablet) 1 tab PO Q6HR PRN PRN Reason: PAIN SCALE 4-10(Mod-Sev Stop: 05/23/25 19:06 Last Admin: 05/22/25 02:06 Dose: 1 tab Acetylcysteine (Acetylcysteine Rt Gloria 10% 4 Ml Nebu) 3 ml INH Q8HRRT [facility] Stop: 06/09/25 14:59 Last Admin: 05/22/25 06:51 Dose: 3 ml Albuterol/Ipratropium (Albuterol/Ipratropium (Duoneb) Rt Gloria 3 Ml Nebu) 3 ml INH Q8HRRT [facility] Stop: 06/09/25 14:59 Last Admin: 05/22/25 06:51 Dose: 3 ml Amiodarone HCl (Amiodarone Hcl 200 Mg Tablet) 200 mg GT QDAY [facility] Stop: 06/11/25 13:44 Last Admin: 05/22/25 08:51 Dose: 200 mg Dextrose (Dextrose 50%-Water Inj 50 Ml Syringe) 25 ml IV Q15MIN PRN PRN Reason: BG 50-70 responsive npo pt Stop: 06/11/25 13:46 Dextrose (Dextrose 50%-Water Inj 50 Ml Syringe) 50 ml IV Q15MIN PRN PRN Reason: BG <50 OR BG <70 & pt unresponsive Stop: 06/11/25 13:47 Gabapentin (Gabapentin 100 Mg Capsule) 100 mg GT TID [facility] Stop: 06/19/25 14:29 Last Admin: 05/22/25 05:42 Dose: 100 mg Glucagon (Glucagon Inj 1 Mg Vial) 1 mg IM Q15MIN PRN PRN Reason: BG <70, and no IV access Stop: 06/11/25 13:48 Heparin Sodium (Porcine) (Heparin Sod Inj 1000 Unit/Ml Vial 10 Ml) 2,700 unit INDWELLCAT X1 PRN PRN Reason: DIALYSIS Stop: 06/04/25 16:11 Last Admin: 05/21/25 19:05 Dose: 2,700 unit Albumin Human (Albuminar-25 Ivpb) 25 gm in 100 mls @ 100 mls/min IV PRN PRN PRN Reason: DIALYSIS Albumin Human (Albuminar-25 Ivpb) 25 gm in 100 mls @ 100 mls/min IV PRN PRN PRN Reason: DIALYSIS Stop: 05/24/25 16:12 Insulin Glargine (Insulin Glargine (Lantus) 5 Unit/0.05 Ml (Per 5 Units)) 38 unit SC QDAY [facility] Stop: 06/12/25 08:59 Last Admin: 05/22/25 08:59 Dose: 38 unit Insulin Human Lispro (Insulin Lispro (Admelog) 1 Unit/0.01 Ml Unit) 0 unit SC Q6HR [facility]; Protocol Stop: 06/11/25 17:59 Last Admin: 05/22/25 05:42 Dose: Not Given Lansoprazole (Lansoprazole 30 Mg Tab.Rap) 30 mg GT QDAY [facility] Stop: 06/04/25 08:59 Last Admin: 05/22/25 08:52 Dose: 30 mg Pharmacy Consult (Pharmacy Renal Dose Adjustment 1 Ea) 1 each XX PRN PRN PRN Reason: CONSULT Stop: 06/13/25 08:21 Sennosides (Senna Tablet) 2 tab GT QDAY [facility]; Protocol Stop: 06/01/25 08:59 Last Admin: 05/22/25 08:52 Dose: 2 tab Sevelamer Carbonate (Sevelamer Carbonate 0.8 Gm Packet (Non-Formulary)) 0.8 gm GT TIDWM [facility] Stop: 06/19/25 09:44 Last Admin: 05/22/25 08:51 Dose: 0.8 gm Sodium Hypochlorite (Sod Hypochlorite 1/4 Str 473 Ml Btl) 473 ml IRRIG BID [facility] Stop: 06/05/25 20:59 Last Admin: 05/21/25 21:09 Dose: 1 applicatio Discontinued Medications Acetaminophen (Acetaminophen 325 Mg Tablet) 650 mg PO Q6HR PRN PRN Reason: pain and Fever >100.4 Stop: 05/22/25 20:42 Last Admin: 04/22/25 20:52 Dose: 650 mg Hydrocodone Bitart/Acetaminophen (Hydrocodone/Apap 5/325 Tablet) 1 tab GT Q4HR PRN PRN Reason: PAIN SCALE 4-10(Mod-Sev Stop: 04/17/25 23:26 Last Admin: 04/14/25 20:25 Dose: 1 tab Hydrocodone Bitart/Acetaminophen (Hydrocodone/Apap 5/325 Tablet) 1 tab PO Q6HR PRN PRN Reason: PAIN SCALE 4-10(Mod-Sev Stop: 05/05/25 02:05 Last Admin: 05/02/25 03:27 Dose: 1 tab Hydrocodone Bitart/Acetaminophen (Hydrocodone/Apap 5/325 Tablet) 1 tab PO Q8HR PRN PRN Reason: PAIN SCALE 4-10(Mod-Sev Stop: 05/11/25 08:22 Last Admin: 05/11/25 01:38 Dose: 1 tab Albuterol/Ipratropium (Albuterol/Ipratropium (Duoneb) Rt Gloria 3 Ml Nebu) 3 ml INH X1 ONE Stop: 04/18/25 04:26 Last Admin: 04/18/25 04:46 Dose: 3 ml Amiodarone HCl (Amiodarone Hcl 200 Mg Tablet) 200 mg GT QDAY [facility] Stop: 05/13/25 08:59 Last Admin: 05/09/25 09:30 Dose: 200 mg Amlodipine Besylate (Amlodipine Besylate 5 Mg Tablet) 10 mg GT QDAY [facility] Stop: 05/13/25 08:59 Last Admin: 05/04/25 09:39 Dose: Not Given Artificial Tears (Artificial Tears 225 Drop/15 Ml Btl) 0 drop BOTH EYES PRN PRN PRN Reason: TO KEEP EYES MOIST Stop: 05/14/25 19:32 Last Admin: 05/07/25 20:31 Dose: 1 drop Ascorbic Acid (Ascorbic Acid 250 Mg Tablet) 500 mg GT BID [facility] Stop: 05/17/25 20:59 Last Admin: 05/17/25 08:03 Dose: 500 mg Atropine Sulfate (Atropine Sulf Inj 0.1 Mg/Ml Syr 10 Ml) 1 mg IVP X1 ONE Stop: 05/09/25 11:13 Last Admin: 05/09/25 11:14 Dose: 1 mg Atropine Sulfate (Atropine Sulf Inj 0.1 Mg/Ml Syr 10 Ml) 1 mg IV X1 ONE Stop: 05/09/25 11:01 Last Admin: 05/09/25 11:07 Dose: 1 mg Bumetanide (Bumetanide Inj 0.25 Mg/Ml Vial 4 Ml) 2 mg IVP QDAY [facility] Stop: 05/13/25 08:59 Bumetanide (Bumetanide Inj 0.25 Mg/Ml Vial 4 Ml) 1 mg IVP X1 ONE Stop: 04/18/25 09:53 Last Admin: 04/18/25 12:23 Dose: 1 mg Bumetanide (Bumetanide Inj 0.25 Mg/Ml Vial 4 Ml) 2 mg IVP BIDD [facility] Stop: 05/21/25 08:59 Last Admin: 05/04/25 05:31 Dose: 2 mg Bumetanide (Bumetanide Inj 0.25 Mg/Ml Vial 4 Ml) 1 mg IVP BIDD [facility] Stop: 06/11/25 09:59 Last Admin: 05/15/25 05:41 Dose: 1 mg Calcium Chloride (Calcium Chloride 10% Inj 10 Ml Syrg) 10 ml IV X1 ONE Stop: 05/09/25 12:01 Last Admin: 05/09/25 11:06 Dose: 10 ml Collagenase (Collagenase Oint 30 Gm Tube) 0 gm TOP HS [facility] Stop: 05/15/25 20:59 Last Admin: 04/16/25 23:45 Dose: 1 applicatio Dextrose (Dextrose 50%-Water Inj 50 Ml Syringe) 25 ml IV Q15MIN PRN PRN Reason: BG 50-70 responsive npo pt Stop: 05/12/25 23:31 Last Admin: 04/24/25 05:27 Dose: 25 ml Dextrose (Dextrose 50%-Water Inj 50 Ml Syringe) 50 ml IV Q15MIN PRN PRN Reason: BG <50 OR BG <70 & pt unresponsive Stop: 05/12/25 23:31 Epoetin Rambo (Epoetin Rambo-Epbx Inj 10,000 Unit/Ml Vial (Non-Esrd)) 10,000 unit IV X1 ONE Stop: 04/26/25 10:01 Last Admin: 04/26/25 09:16 Dose: 10,000 unit Epoetin Rambo (Epoetin Rambo-Epbx Inj 10,000 Unit/Ml Vial (Esrd)) 10,000 unit SC X1 ONE Stop: 05/02/25 08:21 Last Admin: 05/02/25 10:20 Dose: 10,000 unit Epoetin Rambo (Epoetin Rambo-Epbx Inj 10,000 Unit/Ml Vial (Esrd)) 10,000 unit SC X1 ONE Stop: 05/06/25 08:20 Last Admin: 05/06/25 08:45 Dose: 10,000 unit Fentanyl Citrate (Fentanyl Cit Inj 50 Mcg/Ml Amp 2ml) 50 mcg IVP Q5MIN PRN PRN Reason: PAIN SCALE 4-10(Mod-Sev Stop: 04/29/25 16:08 Fentanyl Citrate (Fentanyl Cit Inj 50 Mcg/Ml Amp 2ml) 100 mcg IM X1 ONE Stop: 05/09/25 11:14 Last Admin: 05/09/25 11:21 Dose: 100 mcg Fentanyl Citrate (Fentanyl Cit Inj 50 Mcg/Ml Amp 2ml) 100 mcg IVP X1 ONE Stop: 05/09/25 12:08 Last Admin: 05/09/25 12:37 Dose: 100 mcg Fentanyl Citrate (Fentanyl Cit Inj 50 Mcg/Ml Amp 2ml) 50 mcg IVP X1 ONE Stop: 05/09/25 13:16 Last Admin: 05/09/25 13:55 Dose: 50 mcg Gabapentin (Gabapentin 300 Mg Capsule) 300 mg PO X1 ONE Stop: 05/10/25 16:43 Last Admin: 05/10/25 16:52 Dose: 300 mg Gabapentin (Gabapentin 100 Mg Capsule) 100 mg PO TID [facility] Stop: 06/10/25 14:04 Last Admin: 05/20/25 14:21 Dose: Not Given Gabapentin (Gabapentin 100 Mg Capsule) 100 mg GT TID [facility] Stop: 06/10/25 14:04 Glucagon (Glucagon Inj 1 Mg Vial) 1 mg IM Q15MIN PRN PRN Reason: BG <70, and no IV access Heparin Sodium (Porcine) (Heparin Sod Inj 5000 Unit/Ml Vial) 4,000 unit IV X1 ONE Stop: 04/13/25 10:31 Last Admin: 04/13/25 10:35 Dose: 4,000 unit Heparin Sodium (Porcine) (Heparin Sod Inj 1000 Unit/Ml Vial 10 Ml) 3,000 unit INDWELLCAT PRN PRN PRN Reason: DIALYSIS Stop: 05/08/25 13:45 Last Admin: 04/29/25 11:04 Dose: 3,000 unit Heparin Sodium (Porcine) (Heparin Sod Inj 5000 Unit/Ml Vial) 5,000 unit SC Q8HR [facility] Stop: 04/27/25 09:46 Last Admin: 04/27/25 05:23 Dose: 5,000 unit Heparin Sodium (Porcine) (Heparin Sod Inj 5000 Unit/Ml Vial) 4,000 unit IVP X1 ONE Stop: 04/27/25 20:05 Last Admin: 04/27/25 20:43 Dose: 4,000 unit Heparin Sodium (Porcine) (Heparin Sod Inj 5000 Unit/Ml Vial) 8,000 unit IVP X1 ONE Stop: 04/29/25 16:31 Last Admin: 04/29/25 16:33 Dose: 8,000 unit Heparin Sodium (Porcine) (Heparin Sod Inj 5000 Unit/Ml Vial) 4,000 unit IVP X1 ONE Stop: 04/30/25 06:35 Last Admin: 04/30/25 07:23 Dose: 4,000 unit Heparin Sodium (Porcine) (Heparin Sod Inj 5000 Unit/Ml Vial) 8,050 unit 40 unit/kg (8050 unit) IV X1 ONE Stop: 04/30/25 15:21 Last Admin: 04/30/25 19:09 Dose: Not Given Heparin Sodium (Porcine) (Heparin Sod Inj 5000 Unit/Ml Vial) 4,000 unit IV X1 ONE Stop: 04/30/25 15:25 Last Admin: 04/30/25 15:36 Dose: 4,000 unit Heparin Sodium (Porcine) (Heparin Sod Inj 1000 Unit/Ml Vial) 2,700 unit INDWELLCAT X1 ONE Stop: 05/21/25 12:01 Last Admin: 05/21/25 12:35 Dose: 2,700 unit Hydromorphone HCl (Hydromorphone Inj 2 Mg/Ml Vial) 0.25 mg IVP X1 ONE Stop: 04/29/25 18:37 Last Admin: 04/29/25 18:44 Dose: 0.25 mg Heparin Sodium/Dextrose (Heparin In D5w Ivpb) 25,000 unit in 250 mls @ 17.986 mls/hr IV .[id number] [facility]; Protocol Stop: 04/26/25 23:44 Last Titration: 04/19/25 00:00 Dose: 11.13 units/kg/hr, 21.926 mls/hr Sodium Chloride (Ns) 500 mls @ 999 mls/hr IV .Q31M ONE Stop: 04/13/25 12:49 Last Infusion: 04/13/25 23:38 Dose: Infused Cefepime HCl 2 gm/ Sodium (Chloride) 50 mls @ 100 mls/hr IV Q8HR [facility] Stop: 04/20/25 13:07 Last Admin: 04/18/25 05:19 Dose: 100 mls/hr Metronidazole (Flagyl 500 Mg Iv) 500 mg in 100 mls @ 200 mls/hr IV Q8HR [facility] Stop: 04/20/25 13:08 Last Infusion: 04/20/25 06:21 Dose: Infused Ceftriaxone Sodium/Dextrose (Rocephin/D5w 1gm Iv Premix) 1 gm in 50 mls @ 100 mls/hr IV QDAY [facility] Stop: 04/25/25 09:47 Last Admin: 04/23/25 08:42 Dose: 100 mls/hr Lactated Ringer's (Lactated Ringers) 500 mls @ 999 mls/hr IV .Q31M ONE Stop: 04/19/25 10:30 Last Admin: 04/19/25 12:07 Dose: Not Given Lactated Ringer's (Lactated Ringers) 500 mls @ 999 mls/hr IV .Q31M ONE Stop: 04/19/25 12:30 Last Admin: 04/19/25 11:59 Dose: 999 mls/hr Albumin Human (Albuminar-25 Ivpb) 25 gm in 100 mls @ 100 mls/hr IV BID [facility] Stop: 04/23/25 08:59 Last Admin: 04/22/25 20:32 Dose: 100 mls/hr Acetazolamide Sodium 500 mg/ (Sodium Chloride) 50 mls @ 100 mls/hr IV X1 ONE Stop: 04/22/25 10:58 Last Admin: 04/22/25 11:52 Dose: 100 mls/hr Heparin Sodium/Dextrose (Heparin In D5w Ivpb) 25,000 unit in 250 mls @ 18 mls/hr IV .[id number] [facility]; Protocol Stop: 05/11/25 09:59 Last Titration: 04/29/25 06:45 Dose: 0 units/kg/hr, 0 mls/hr Heparin Sodium/Dextrose (Heparin In D5w Ivpb) 25,000 unit in 250 mls @ 22.085 mls/hr IV .[id number] [facility]; Protocol Stop: 05/13/25 16:29 Last Admin: 05/02/25 13:27 Dose: 11.8 units/kg/hr, 24.086 mls/hr Lactated Ringer's (Lactated Ringers) 1,000 mls @ 999 mls/hr IV .Q1H1M ONE Stop: 05/02/25 02:58 Last Admin: 05/07/25 19:39 Dose: Not Given Lactated Ringer's (Lactated Ringers) 1,000 mls @ 150 mls/hr IV .Q6H40M ONE Stop: 05/02/25 08:37 Last Admin: 05/07/25 19:39 Dose: Not Given Lactated Ringer's (Lactated Ringers) 500 mls @ 150 mls/hr IV .Q3H20M ONE Stop: 05/02/25 05:18 Last Admin: 05/02/25 01:54 Dose: 150 mls/hr Ferumoxytol 510 mg/ Sodium (Chloride) 117 mls @ 234 mls/hr IV X1 ONE Stop: 05/02/25 08:16 Last Admin: 05/02/25 08:45 Dose: 234 mls/hr Ferumoxytol 510 mg/ Sodium (Chloride) 117 mls @ 234 mls/hr IV .Q30M ONE Stop: 05/06/25 08:59 Last Admin: 05/06/25 10:43 Dose: 234 mls/hr Calcium Gluconate/Sodium Chloride (Calcium Gluc/Ns 1000mg Ivpb) 1 gm in 50 mls @ 50 mls/hr IV X1 ONE Stop: 05/09/25 12:29 Last Admin: 05/09/25 11:59 Dose: Not Given Dopamine HCl/Dextrose (Intropin In D5w Ivpb) 400 mg in 250 mls @ 36.938 mls/hr IV .Q6H47M [facility]; Protocol Stop: 06/08/25 11:35 Last Titration: 05/09/25 13:15 Dose: 0 mcg/kg/min, 0 mls/hr Piperacillin Sod/Tazobactam (Sod 4.5 gm/ Sodium Chloride) 100 mls @ 25 mls/hr IV Q8HR [facility]; Protocol Stop: 05/16/25 13:02 Last Admin: 05/16/25 06:34 Dose: 25 mls/hr Norepinephrine/Dextrose (Levophed In D5w 8mg/250ml) 8 mg in 250 mls @ 18.469 mls/hr IV .[id number] PRN; Protocol PRN Reason: PER PROTOCOL Stop: 06/08/25 13:04 Vancomycin HCl 2,000 mg/ (Sodium Chloride) 500 mls @ 150 mls/hr IV X1 ONE Stop: 05/09/25 17:19 Last Admin: 05/09/25 13:42 Dose: 10 mg/min, 150 mls/hr Phenylephrine HCl 40 mg/ (Sodium Chloride) 100 mls @ 2.955 mls/hr IV .Q24H PRN; Protocol PRN Reason: Per Cardiogenic Protocol Stop: 06/08/25 13:23 Last Titration: 05/10/25 06:00 Dose: 0 mcg/kg/min, 0 mls/hr Dopamine HCl/Dextrose (Intropin In D5w Ivpb) 400 mg in 250 mls @ 36.938 mls/hr IV .Q6H47M [facility]; Protocol Stop: 06/08/25 13:44 Last Admin: 05/09/25 15:19 Dose: Not Given Norepinephrine/Dextrose (Levophed In D5w 8mg/250ml) 8 mg in 250 mls @ 18.469 mls/hr IV .[id number] PRN; Protocol PRN Reason: PER PROTOCOL Stop: 06/08/25 13:32 Fentanyl Citrate (Sublimaze Inj 2,500 Mcg/250 Ml Bag) 2,500 mcg in 250 mls @ 2.5 mls/hr IV .Q24H PRN; Protocol PRN Reason: PER PROTOCOL Stop: 05/14/25 15:04 Vancomycin HCl (Vancomycin/Water 1250 Mg Ivpb) 250 mls @ 120 mls/hr IV X1 ONE Stop: 05/10/25 12:04 Last Admin: 05/10/25 10:50 Dose: 120 mls/hr Sodium Chloride (Ns 0.45%) 500 mls @ 999 mls/hr IV .Q31M ONE Stop: 05/10/25 08:55 Last Admin: 05/10/25 08:40 Dose: 999 mls/hr Sodium Chloride (Ns 0.45%) 1,000 mls @ 999 mls/hr IV .Q1H1M ONE Stop: 05/10/25 09:32 Last Admin: 05/10/25 08:48 Dose: Not Given Lactated Ringer's (Lactated Ringers) 1,000 mls @ 999 mls/hr IV .Q1H1M ONE Stop: 05/10/25 18:05 Last Admin: 05/10/25 17:12 Dose: Not Given Sodium Chloride (Ns 0.45%) 500 mls @ 999 mls/hr IV .Q31M ONE Stop: 05/10/25 17:37 Last Admin: 05/10/25 17:07 Dose: 999 mls/hr Vancomycin/Sodium Chloride (Vancomycin/Ns 1 Gm Ivpb) 200 mls @ 120 mls/hr IV X1 ONE Stop: 05/12/25 11:39 Doxycycline Hyclate 100 mg/ (Sodium Chloride) 100 mls @ 100 mls/hr IV BID [facility] Stop: 05/19/25 20:59 Last Admin: 05/13/25 21:33 Dose: 100 mls/hr Cefepime HCl 1 gm/ Sodium (Chloride) 50 mls @ 100 mls/hr IV Q12HR [facility] Stop: 05/21/25 08:20 Last Admin: 05/14/25 09:34 Dose: 100 mls/hr Levofloxacin/Dextrose (Levaquin Ivpb) 750 mg in 150 mls @ 100 mls/hr IV Q48HR@2100 [facility] Stop: 05/21/25 20:59 Last Infusion: 05/20/25 22:50 Dose: Infused Insulin Glargine (Insulin Glargine (Lantus) 5 Unit/0.05 Ml (Per 5 Units)) 38 unit SC QDAY [facility] Stop: 05/13/25 08:59 Last Admin: 05/12/25 10:19 Dose: 38 unit Insulin Human Lispro (Insulin Lispro (Admelog) 1 Unit/0.01 Ml Unit) 0 unit SC Q6HR [facility]; Protocol Stop: 05/13/25 00:00 Last Admin: 05/12/25 12:30 Dose: 2 unit Lansoprazole (Lansoprazole 30 Mg Tab.Rap.Dr) 30 mg GT BID [facility] Stop: 05/13/25 08:59 Last Admin: 05/04/25 20:25 Dose: 30 mg Lidocaine (Lidocaine 5% 1 Patch) 1 patch TOP X1 ONE Stop: 05/10/25 14:42 Last Admin: 05/10/25 15:01 Dose: 1 patch Lidocaine HCl (Lidocaine Hcl 1% 20 Ml Vial) 10 ml IM X1 ONE Stop: 05/09/25 12:38 Last Admin: 05/09/25 12:38 Dose: 10 ml Losartan Potassium (Losartan Potassium 25 Mg Tablet) 25 mg GT QDAY [facility] Stop: 05/13/25 08:59 Metoprolol Succinate (Metoprolol Succinate Xl 25 Mg Tabcr) 100 mg GT BID [facility] Stop: 05/13/25 08:59 Last Admin: 04/17/25 09:00 Dose: Not Given Metoprolol Tartrate (Metoprolol Tartrate 25 Mg Tablet) 100 mg GT BID [facility] Stop: 05/17/25 10:14 Last Admin: 05/04/25 09:40 Dose: Not Given Metoprolol Tartrate (Metoprolol Tartrate Inj 1 Mg/Ml Amp 5 Ml) 1 mg IVP Q5MIN PRN PRN Reason: TACHYCARDIA Stop: 04/29/25 16:08 Midazolam HCl (Midazolam Inj 1 Mg/Ml Vial 2 Ml) 4 mg IVP X1 ONE Stop: 04/24/25 10:16 Last Admin: 04/24/25 10:30 Dose: 4 mg Midazolam HCl (Midazolam Inj 1 Mg/Ml Vial 2 Ml) 1 mg IVP Q5MIN PRN PRN Reason: ANXIETY Stop: 04/29/25 16:08 Midazolam HCl (Midazolam Inj 1 Mg/Ml Vial 2 Ml) 4 mg IVP X1 ONE Stop: 05/09/25 11:22 Last Admin: 05/09/25 11:34 Dose: 4 mg Midazolam HCl (Midazolam Inj 1 Mg/Ml Vial 2 Ml) 4 mg IVP X1 ONE Stop: 05/09/25 12:08 Last Admin: 05/09/25 12:38 Dose: 3 mg Midazolam HCl (Midazolam Inj 1 Mg/Ml Vial 2 Ml) 2 mg IVP Q2HR KOURTNEY Stop: 05/14/25 15:59 Midazolam HCl (Midazolam Inj 1 Mg/Ml Vial 2 Ml) 2 mg IVP Q2HR PRN PRN Reason: AGITATION OR PAIN Stop: 05/14/25 15:59 Midazolam HCl (Midazolam Inj 1 Mg/Ml Vial 2 Ml) 2 mg IVP Q2HR PRN PRN Reason: AGITATION Stop: 05/14/25 15:59 Ondansetron HCl (Ondansetron Inj 2 Mg/Ml Inj 2 Ml) 4 mg IVP Q6H PRN; Protocol PRN Reason: NAUSEA OR VOMITING Stop: 05/12/25 23:26 Last Admin: 04/17/25 05:28 Dose: 4 mg Pantoprazole Sodium (Pantoprazole 40 Mg Tablet) 40 mg PO Q12HR [facility] Stop: 05/13/25 08:59 Last Admin: 04/14/25 08:38 Dose: 40 mg Pharmacy Consult (Vancomycin Pharmacy To Dose 1 Each Each) 1 each IV QDAY PRN PRN Reason: PROTOCOL Stop: 06/08/25 13:14 Polyethylene Glycol (Polyethylene Glycol 17 Gm Packet) 34 gm PO QDAY [facility] Stop: 06/01/25 08:59 Polyethylene Glycol (Polyethylene Glycol 17 Gm Packet) 34 gm GT QDAY [facility] Stop: 06/01/25 08:59 Last Admin: 05/12/25 09:23 Dose: Not Given Rivaroxaban (Rivaroxaban 10 Mg Tablet) 20 mg PO QDAY [facility] Stop: 05/10/25 08:59 Last Admin: 04/24/25 21:19 Dose: Not Given Sennosides (Senna Tablet) 2 tab PO QDAY [facility]; Protocol Stop: 06/01/25 08:59 Sevelamer Carbonate (Sevelamer Carbonate 800 Mg Tablet) 800 mg PO TIDWM [facility] Stop: 06/19/25 11:59 Silver Nitrate (Silver Nitrate 1 Appl Ea) 1 appl TOP X1 ONE Stop: 04/17/25 11:19 Last Admin: 04/17/25 11:18 Dose: Not Given Silver Nitrate (Silver Nitrate 1 Appl Ea) 1 appl TOP X1 ONE Stop: 05/02/25 18:57 Last Admin: 05/07/25 19:40 Dose: Not Given Sodium Chloride (Sodium Cl Irrig Soln 1,000 Ml Bag) 0 ml IRRIG QDAY [facility] Stop: 05/31/25 09:14 Last Admin: 05/02/25 10:19 Dose: Not Given Sodium Hypochlorite (Sod Hypochlorite 1/4 Str 473 Ml Btl) 473 ml IRRIG [facility] Stop: 05/15/25 20:59 Last Admin: 04/28/25 21:45 Dose: 1 applicatio Sodium Polystyrene Sulfonate (Sod Polystyrene Sulfon Susp 15 Gm/60 Ml Btl) 30 gm PO X1 ONE Stop: 04/21/25 23:45 Last Admin: 04/22/25 00:09 Dose: 30 gm Tuberculin PPD (Tuberculin Ppd Inj 5 Unit/0.1 Ml Dose) 5 unit ID X1 ONE Stop: 04/25/25 09:03 Last Admin: 04/25/25 11:46 Dose: 5 unit Zinc Sulfate (Zinc Sulfate 220 Mg Capsule) 220 mg GT QDAY [facility] Stop: 05/18/25 08:59 Last Admin: 05/17/25 08:02 Dose: 220 mg Assessment & Plan Plan Summary: Mr. Ortega is a 64-year-old male with past medical history of chronic respiratory failure status post tracheostomy 03/14/2025 at [facility], morbid obesity status post Diego-en-Y gastric bypass status post J-tube placement at [facility] [place], type 2 diabetes mellitus, hypertension,, atrial fibrillation, congestive heart failure with preserved ejection fraction, grade 3 diastolic dysfunction, right heart failure, BASIA/OHS, KENIA on CKD currently on dialysis, anemia and chronic decubitus unstageable sacral ulcer status postdebridement 04/29/2025 who is currently admitted to the hospital for KENIA/ATN progressing to ESRD, acute on chronic hypoxic and hypercapnic respiratory failure, recurrent pneumonia. Pulmonology consulted today for tracheostomy assessment and respiratory distress. #Acute respiratory distress #Tracheostomy site assessment #Chronic respiratory failure status post trach -Pulmonology consulted today for acute respiratory distress, patient earlier this morning was having difficulty breathing, transitioned to pressure support earlier this morning. -Continues to have difficulty breathing with increased work of breathing -Tracheostomy site assessed during assessment copious amount of thick sputum was noted -Patient had a bronch done in April, was noted to have large mucous plug in the left mainstem bronchus Plan: - Continue pressure support, will deflate tracheostomy cuff for now, will schedule patient for bronchoscopy - Will rule out any granulation tissue excessive mucus secretion/mucous plug on [facility], will assess tracheostomy site better - Continue chest physiotherapy with mechanical percussive every 8 hours - Continue breathing treatment and Mucomyst - Continue with suctioning as needed as tracheostomy - Cough has been deflated patient will need abrasive brushing with Peridex and suctioning of mouth to reduce the risk of infection - Continue pressure support on Mechanical Vent - Assess for tracheostomy tubes position may be suboptimal. #Morbid obesity status post Diego-en-Y and Y gastric bypass status post J-tube placement #Type 2 diabetes mellitus #Hypertension #Atrial fibrillation #Congestive heart failure with preserved ejection fraction #Grade 3 diastolic dysfunction #Right heart failure #Obstructive sleep apnea/obesity hypoventilation syndrome #KENIA/ATN progressing to ESRD status post temporary dialysis catheter placement 05/21/2025 #Normocytic normochromic anemia #Unstageable sacral ulcer status postdebridement 04/29/2025 - Management as per primary team Case discussed with Attending Dr. Ruth. Elizabeth Lamas MD Internal medicine resident PGY 2 Disclaimer: This note was dictated by speech recognition. Minor errors in project scheduler may be present due to voice recognition software.
--- NOTE | 2025-05-21 14:20 | PD.EVENT ---
Documentation for date of: 05/21/25 Event Note Event Note: [facility] ICU resident note for details. The patient was expressing difficulty breathing on the mechanical ventilator via tracheostomy earlier today. He felt much better on pressure support ventilation but then had similar complaints. After deflating his cuff his shortness of breath immediately resolved. I suspect that the tracheostomy tubes position may be suboptimal. Luckily he is still capable of achieving adequate minute ventilation without respiratory distress whether the cuff is inflated or not. He is not in any acute distress. We will plan on bronchoscopy when time allows for evaluating the tracheostomy position. Risks benefits and alternatives were discussed with Mr. Wylie he has agreed and consented to the bronchoscopy.
--- NOTE | 2025-05-21 14:59 | ESPR_ITS ---
<Statement entered by Lenora John MD - 05/22/25 00:23> I personally evaluated the patient examined and telemetry floor patient continues to remain stable undergoing hemodialysis today dialysis catheter was placed by radiologist remains in A-fib rate control overall status stable agree with the treatment plan recommendation as documented by PGY [address] Bradley Documentation for date of: 05/21/25 Subjective Subjective Interval history: Patient is seen and examined at bedside. No acute overnight events. Patient complained of difficulty in breathing this morning following which primary team examined the patient at bedside and checked the tracheostomy tube with cuff deflation and later ICU Dr. Ruth is consulted and he recommended bronchoscopy to see if there is any tracheostomy tube displacement. Dr. Kim inserted subclavian line on the right side for the hemodialysis Found to have adequate urine output. At the time of examination, patient is on mechanical ventilator, pressure support saturating around 99% without any respiratory distress. Denies any complaints. Patient is still in atrial fibrillation with controlled ventricular rate Recommended to continue amiodarone 200 Mg G-tube daily Exam Vital Signs Temp Pulse Resp BP Pulse Ox O2 Del Method O2 Flow Rate 98.1 F 120 H 17 124/91 H 100 Mechanical Ventilation 10 05/21/25 12:00 05/21/25 12:00 05/21/25 12:00 05/21/25 12:00 05/21/25 12:00 05/21/25 12:00 05/21/25 12:00 FiO2 40 05/21/25 12:00 Narrative Exam General: Awake. obese. Tracheostomy tube insitu on pressure support HEENT: Normocephalic, atraumatic, mucous membranes moist. Heart: IRRegular rate and rhythm, no murmurs. Lungs: Clear to auscultation with no wheezing or crackles. But noted decreased breath sounds bilaterally in view of body habitus. noted subclavian line on right side Abdomen: Soft, nondistended, nontender, positive bowel sounds. ?No guarding or rebound tenderness. Neurologic: Alert and oriented x3, no gross neurological deficit, and patient able to move all 4 extremities. Extremities: No edema. Skin: Large sacral ulcer in the gluteal region, Decubitus Grade III/IV Objective Labs 05/21/25 04:45 05/21/25 04:45 Labs: Laboratory Results - last 24 hr 05/20/25 05/21/25 05/21/25 17:43 04:45 11:24 WBC 16.8 H RBC 2.70 L Hgb 7.7 L Hct 24.6 L MCV 91 MCH 28.5 MCHC 31.3 RDW Std Deviation 59.2 H Plt Count 476 H Neut % (Auto) 67 Lymph % (Auto) 21 [place] % (Auto) 9 Eos % (Auto) 2 Baso % (Auto) 0 Neut # (Auto) 11.3 H Lymph # (Auto) 3.5 [place] # (Auto) 1.5 H Eos # (Auto) 0.3 Baso # (Auto) 0.1 Immature Gran # (Auto) 0.15 H Absolute Nucleated RBC 0.00 Immature Gran % 1 H Nucleated RBC % 0 PT 12.4 H INR 1.1 APTT 29.2 Sodium 143 143 Potassium 5.1 4.7 Chloride 102 102 Carbon Dioxide 24.4 24.4 Anion Gap 17 H 17 H BUN 127 H* 123 H* Creatinine 4.3 H* 4.4 H* Estim Creat Clear Calc 28.3 L 27.9 L eGFR 15 L 14 L* BUN/Creatinine Ratio 30 H 28 H Glucose 168 H 155 H Calculated Osmolality 329 H 327 H Calcium 9.7 9.3 Corrected Calcium 10.0 9.9 Phosphorus 6.6 H 6.6 H Magnesium 2.6 Total Bilirubin 0.3 AST 16 ALT 11 Alkaline Phosphatase 213 H Total Protein 6.4 Albumin 3.6 3.3 L Globulin 3.1 Albumin/Globulin Ratio 1.1 L ABG Interpretation ABG results: 04/18/25 04/18/25 04/18/25 04:40 06:27 10:30 ABG pH 7.28 L 7.33 L 7.36 ABG pCO2 72 H* 67 H 61 H ABG pO2 132 H 60 L D 60 L ABG HCO3 34 H 35 H 34 H ABG O2 Saturation 100 H 93 93 ABG Base Excess 6 H 7 H 8 H 04/19/25 05/10/25 08:53 07:40 ABG pH 7.47 H D 7.52 H ABG pCO2 45 D 40 ABG pO2 66 L 60 L ABG HCO3 33 H 32 H ABG O2 Saturation 96 94 ABG Base Excess 8 H 8 H Quality Measures Quality Measures none (None, patient is Baptism and has a bleeding sacral wound) Advance care planning discussed with:: patient Assessment & Plan Assessment Current Active Medications: Generic Name Dose Route Start Last Admin Trade Name Freq PRN Reason Stop Dose Admin Acetaminophen 650 mg 05/01/25 08:47 05/17/25 11:50 Acetaminophen 325 Mg Tablet PO 05/22/25 20:42 650 mg Q6HR PRN Administration pain 1-3 OR Fever >100.4 Hydrocodone Bitart/Acetaminophen 1 tab 05/18/25 19:07 05/19/25 14:34 Hydrocodone/Apap 7.5/325 Tablet PO 05/23/25 19:06 1 tab Q6HR PRN Administration PAIN SCALE 4-10(Mod-Sev Acetylcysteine 3 ml 05/10/25 15:00 05/21/25 14:54 Acetylcysteine Rt Gloria 10% 4 Ml Nebu INH 06/09/25 14:59 3 ml Q8HRRT KOURTNEY Administration Albuterol/Ipratropium 3 ml 05/10/25 15:00 05/21/25 14:54 Albuterol/Ipratropium (Duoneb) Rt Gloria 3 Ml Nebu INH 06/09/25 14:59 3 ml Q8HRRT KOURTNEY Administration Amiodarone HCl 200 mg 05/12/25 13:45 05/21/25 08:27 Amiodarone Hcl 200 Mg Tablet GT 06/11/25 13:44 200 mg QDAY KOURTNEY Administration Dextrose 25 ml 05/12/25 13:47 Dextrose 50%-Water Inj 50 Ml Syringe IV 06/11/25 13:46 Q15MIN PRN BG 50-70 responsive npo pt Dextrose 50 ml 05/12/25 13:48 Dextrose 50%-Water Inj 50 Ml Syringe IV 06/11/25 13:47 Q15MIN PRN BG <50 OR BG <70 & pt unresponsive Gabapentin 100 mg 05/20/25 14:30 05/21/25 14:01 Gabapentin 100 Mg Capsule GT 06/19/25 14:29 100 mg TID KOURTNEY Administration Glucagon 1 mg 05/12/25 13:49 Glucagon Inj 1 Mg Vial IM 06/11/25 13:48 Q15MIN PRN BG <70, and no IV access Albumin Human 25 gm in 100 mls @ 100 mls/min 04/24/25 11:52 Albuminar-25 Ivpb IV PRN PRN DIALYSIS Levofloxacin/Dextrose 750 mg in 150 mls @ 100 mls/hr 05/14/25 21:00 05/20/25 22:50 Levaquin Ivpb IV 05/21/25 20:59 Infused Q48HR@2100 KOURTNEY Infusion Insulin Glargine 38 unit 05/13/25 09:00 05/21/25 08:28 Insulin Glargine (Lantus) 5 Unit/0.05 Ml (Per 5 Units) SC 06/12/25 08:59 38 unit QDAY KOURTNEY Administration Insulin Human Lispro 0 unit 05/12/25 18:00 05/21/25 12:11 Insulin Lispro (Admelog) 1 Unit/0.01 Ml Unit SC 06/11/25 17:59 Not Given Q6HR KOURTNEY Protocol Lansoprazole 30 mg 05/05/25 09:00 05/21/25 08:27 Lansoprazole 30 Mg Tab.Rap. GT 06/04/25 08:59 30 mg QDAY KOURTNEY Administration Pharmacy Consult 1 each 05/14/25 08:22 Pharmacy Renal Dose Adjustment 1 Ea XX 06/13/25 08:21 PRN PRN CONSULT Sennosides 2 tab 05/02/25 09:00 05/21/25 08:27 Senna Tablet GT 06/01/25 08:59 2 tab QDAY KOURTNEY Administration Protocol Sevelamer Carbonate 0.8 gm 05/20/25 09:45 05/21/25 12:11 Sevelamer Carbonate 0.8 Gm Packet (Non-Formulary) GT 06/19/25 09:44 Not Given TIDWM KOURTNEY Sodium Hypochlorite 473 ml 05/06/25 21:00 05/21/25 08:29 Sod Hypochlorite 1/4 Str 473 Ml Btl IRRIG 06/05/25 20:59 1 applicatio BID KOURNTEY Administration Plan Mr. Ortega is a 64-year-old male, Baptism with a past medical history of hypertension, diabetes mellitus type 2, history of atrial fibrillation, CHF HFpEF 65%, grade 3 diastolic dysfunction, right heart failure, RSVP 47, moderate to severe ALB calsifications with no stenosis, status post tracheostomy, s/p PEG Tube at [facility], bariatric team, history of dyspahagia, extensive decubitus ulcers, CKD, history of anemia, history of Diego-en- Y gastric bypass, BASIA/OHS, and morbid obesity. Patient was upgraded to ICU for a third time with in acute respiratory respiratory failure secondary to mucous plug and shock, likely cardiogenic shock secondary to complete heart block requiring pressors and downgraded again # A-fib with RVR - s/p cardioversion ---> CVR # Bradycardia and questionable complete heart block, resolved - Patient was hypoxic and was transferred to the ICU on 05/09/2025. - Cardiology was consulted 05/09/2025 for significant bradycardia requiring external temporary transcutaneous pacing. - Plan was to place a temporary transvenous pacemaker if the patient continues to be bradycardic as he was 100% dependent on the transcutaneous pacing. - Bronchoscopy was performed which showed small mucous plug which was removed and patient rhythm was back to his atrial fibrillation with RVR. - Patient was on dopamine at that point of time. Patient blood pressure was on the lower side and was unstable and required cardioversion x 1. - Patient was on levophed and phenylephrine for a short period of time. - Patient is presently ventilator dependent and has a tracheostomy in place along with a jejunostomy. Plan - Recommend to continue telemetry monitoring - In view of ongoing sacral ulcer with recurrent infections, pacemaker placement cannot be done. But fortunately patient did not have any further episodes of bradycardia. So no need of pacemaker placement as of now - Recommended to continue amiodarone 200 Mg G-tube once daily - As patient had large decubitus ulcer and has tendency to bleed, anticoagulation is held for now # H/O CHF, HFpEF 65% #Diastolic dysfunction, grade 3 #Pulmonary hypertension #BASIA/OHS #Moderate to severe a AOV calcification with no stenosis #Moderate Right Pleural Effusion - Patient has a past medical history of right heart failure, Diastolic dysfunction, and HFpEF 65% likely in the setting of cardiomypoathy secondary to morbid obesity form BASIA/OHS. - [place] [facility] 03/19/2025: RAP 8, PAP 27, PCWP 7. - Echo (04/29/2025): Normal LV size and function. Estimated EF of 65%. Grade III Diastolic Dysfunction.Right ventricle is dilated with mild RV dysfunction RVSP 47mmHg. RAP 15mmHg.Severe biatrial dilation.Moderate to Severe AOV calcification with no stenosis <ild tricuspid regurgitation. No pericardial effusion. - Echo (05/14/2025) : Normal LV size and function. Estimated EF is 55 to 60%. Severely RA dilated right ventricle as well as right atrium. IVS flattening noted both in systole and diastole indicating both pressure and volume overload Plan -Recommended to hold diuresis for now in view of uptrending BUN and creatinine -Pt will be getting dialysis on 05/21/25 -K >4 and Mg >2 #Acute on Chronic Respiratory Failure secondary to mucus plug #Healthcare-Associated Pneumonia #Leukocytosis #Large Sacral Decubitus Ulcer s/p excisional debridement (05/02/2025) #CKD stage III #Jejunostomy #History of abdominal abscess s/p percutaneous drainage #Diabetes Mellitus Type 2 non insulin depedent #Normocytic Anemia Management of rest of the medical conditions as per primary team and other consultants. Thank you for the consult and allowing us to participate in the care of the patient. Cardiology will continue to follow. Patient plan of care was discussed with the [employer] Dr. Alvaro Ahumada, PGY2
--- NOTE | 2025-05-21 17:49 | PC.NURSE ---
Unable to do wound care. Patient had IR Vascular cath insertion and then dialysis. Dialysis not to end until after shift change.
[2025-05-21] MEDS: HEPARIN SOD INJ 1000 UNIT/ML VIAL 10 ML 2700 UNIT INDWELLCAT (19:05)
[2025-05-22] VITALS (27 sets, daily range): BP systolic 89–123; BP diastolic 60–89; PULSE 60–110; RESP 10–31; TEMP 36.1–36.5; O2SAT 98–100; BMI 68.6
[2025-05-22] MEDS: HYDROcodone/APAP 7.5/325 TABLET 1 TAB PO (02:06)
[2025-05-22] MEDS: GABAPENTIN 100 MG CAPSULE GT ×3 (05:42→21:57)
[2025-05-22 06:09] LABS: Basophils # (Auto) 0.1 Thou/mm3 (0.0-0.2); Basophils % (Auto) 0 % (0-2.5); Eosinophils # (Auto) 0.4 Thou/mm3 (0.0-0.5); Eosinophils % (Auto) 3 % (0-10); Hematocrit 24.5 % (41.0-53.0); Immature Granulocytes Auto 0.17 Thou/mm3 (0.00-0.00); Lymphocytes # (Auto) 2.6 Thou/mm3 (1.0-4.8); Lymphocytes % (Auto) 18 % (10-50); Mean Corpuscular HGB Conc 31.0 g/dl (31.0-37.0); Mean Corpuscular Hemoglobin 28.7 pg (25.0-35.0); Mean Corpuscular Volume 93 fL (80-100); Monocytes # (Auto) 1.5 Thou/mm3 (0.0-0.8); Monocytes % (Auto) 11 % (0-12); Neutrophils # (Auto) 9.7 Thou/mm3 (1.8-7.7); Neutrophils % (Auto) 67 % (37-80); Nucleated Red Blood Cell # 0.00 Thou/mm3 (0.00-0.00); Nucleated Red Blood Cell % 0 /100 WBC (0); Platelet Count 442 Thou/mm3 (140-440); RDW Standard Deviation 60.4 fL (35.1-43.9); Red Blood Count 2.65 Miln/mm3 (4.50-5.90); White Blood Count 14.5 Thou/mm3 (3.8-10.6)
[2025-05-22 06:11] LABS: Hemoglobin 7.6 g/dL (13.5-16.0)
[2025-05-22] MEDS: ACETYLCYSTEINE RT SOL 10% 4 ML NEBU 3 ML INH ×3 (06:51→22:22)
[2025-05-22] MEDS: ALBUTEROL/IPRATROPIUM (Duoneb) RT SOL 3 ML NEBU INH ×3 (06:51→22:22)
[2025-05-22 06:59] LABS: Alanine Aminotransferase 10 U/L (10-49); Albumin, Serum 3.4 gm/dL (3.4-4.8); Albumin/Globulin Ratio 1.1 (1.2-2.2); Alkaline Phosphatase 201 U/L (46-116); Anion Gap 15 (7-16); Aspartate Amino Transferase 15 U/L (0-34); BUN/Creatinine Ratio 26 Ratio (12-20); Bilirubin,Total 0.4 mg/dL (0.3-1.2); Blood Urea Nitrogen 87 mg/dL (9-23); Calcium 9.0 mg/dL (8.3-10.6); Calcium (Corrected) 9.5 mg/dL (8.5-10.1); Carbon Dioxide 27.2 mMol/L (20.0-31.0); Chloride 100 mMol/L (98-107); Creatinine (Component) 3.3 mg/dL (0.6-1.3); Estimated Creatinine Clearance 37.1 mL/min (>60); Globulin 3.0 gm/dL (2.3-3.5); Glucose 129 mg/dL (74-106); Magnesium 2.5 mg/dL (1.6-2.6); Osmolality,Calculated 311 (275-295); Phosphorous 5.9 mg/dL (2.4-5.1); Potassium 4.2 mMol/L (3.4-5.1); Sodium 142 mMol/L (136-145); Total Protein 6.4 gm/dL (5.7-8.2); eGFR 20 See Note
--- NOTE | 2025-05-22 07:53 | PD.RESPRO ---
Documentation for date of: 05/22/25 Senior resident attestation: Patient evaluated and examined at the bedside, plan of care discussed with rest of the team including my attending physician, except as noted. Patient was complaining of respiratory distress this morning, and that his mouth feels dry and he struggling to breathe him. ICU/photo engraver Dr. Ruth saw the patient and adjusted his patient ventilator settings, started him on pressure support ventilation. Patient reported feeling better, but later at the time of our rounding, patient was visibly uncomfortable trying to breathe. Saturating well at the time, dr Ruth was called who reevaluated the patient, deflated tracheal cuff, which helped Mr. Ortega with breathing better, it was decided patient would benefit from tracheal repositioning and bronchoscopy. Patient will be scheduled for bronchoscopy tomorrow morning. #Tracheostomy care?patient s/p bronchoscopy #ATN progressing to ESRD?temporary dialysis catheter placed by IR, initiating hemodialysis. Patient will require long-term renal replacement therapy, will be discharged to LTAC once stable. #Acute hypoxic respiratory failure, status post tracheostomy?on mechanical ventilation currently pressure support, likely malfunctioning tracheostomy, will require realignment and bronchoscopy for further evaluation. #HCAP?repeated instances of HCAP/ventilator associate pneumonia, treated with levofloxacin based on most recent sputum culture sensitivity. #Atrial fibrillation?rate controlled with amiodarone, was on anticoagulation initially, but due to severe anemia secondary to bleeding from sacral ulcer, decision was made to hold anticoagulation. Patient is a [employer]ism, received IV iron supplementation. #Decubitus ulcer?wound care following the patient. Currently bleeding is controlled. Quresh PGY3 service follow-up note reason is that she has labile pressures you look at the blood pressure readings provide the the variation in her blood pressure is like crazy like 40 go from 221 of and then go back up and then go back on repeat checks Subjective Subjective Interval history: No acute events overnight. Patient seen and examined at bedside this AM. Had hemodialysis session yesterday and this morning. Reported fatigue after session but otherwise no other complaints. Reports that he is able to breath better today. Still plan for bronchoscopy today. Will plan for another hemodialysis session tomorrow. Labs and vitals were reviewed. Blood pressures are soft, likely due to dialysis. WBC improving, Hgb stable at 7.6. BUN, creatinine, and phosphorus levels are improving with dialysis. Still anticipating discharge on Tuesday. Review of systems otherwise negative except what is mentioned above. Exam Vital Signs Temp Pulse Resp BP Pulse Ox O2 Del Method O2 Flow Rate 97.0 F 95 17 89/60 L 100 Mechanical Ventilation 10 05/22/25 04:00 05/22/25 07:00 05/22/25 07:00 05/22/25 04:00 05/22/25 07:00 05/22/25 04:00 05/22/25 04:00 FiO2 50 05/22/25 07:00 Narrative Exam Physical Exam: Constitutional: Alert, oriented x 3 and no acute distress. Nods and expresses self to questions, writes on white board for communication. Elderly male, morbidly obese. HEENT: Vision grossly intact. Patent nares. Trachea midline. Tracheostomy tube in situ, exit site clean. Mouth dry. Respiratory: Chest normal on inspection and decreased air entry in all lung sims, transmitted sounds and congestion on anterior chest wall, middle and upper lobes. Cardiovascular: S1 and S2 audible, RRR. No murmurs carotid bruit. No gross JVD. Abdominal: Soft, obese and non tender to palpation in all quadrants. BS +. Jejunostomy tube in situ, exit site clean Genitourinary: No bladder tenderness, no flank pain. Normal to palpation Musculoskeletal: Extremities tone within normal limits. Mild edema in right upper extremity, improved upon placing on pillow. No lower extremity edema bilaterally. Neurological: CN II - XII grossly intact. Extremity motor and sensation grossly intact. Extremities: 1+ pitting lower extremity edema bilaterally. Skin: Warm, dry and intact. Large sacral decubitus ulcer, necrotic tissue noted. No purulent drainage noted. Cleanly packed with dressings. Psychiatric: Patient has good affect, is cooperative Objective Labs 05/25/25 05:40 05/25/25 05:40 Labs: Laboratory Results - last 24 hr 05/21/25 05/22/25 05/22/25 11:24 00:44 04:49 WBC 14.5 H RBC 2.65 L Hgb 7.6 L Hct 24.5 L MCV 93 MCH 28.7 MCHC 31.0 RDW Std Deviation 60.4 H Plt Count 442 H D Neut % (Auto) 67 Lymph % (Auto) 18 Andrew % (Auto) 11 Eos % (Auto) 3 Baso % (Auto) 0 Neut # (Auto) 9.7 H Lymph # (Auto) 2.6 Andrew # (Auto) 1.5 H Eos # (Auto) 0.4 Baso # (Auto) 0.1 Immature Gran # (Auto) 0.17 H Absolute Nucleated RBC 0.00 Immature Gran % 1 H Nucleated RBC % 0 PT 12.4 H INR 1.1 APTT 29.2 Sodium 142 Potassium 4.2 D Chloride 100 Carbon Dioxide 27.2 Anion Gap 15 BUN 87 H Creatinine 3.3 H D Estim Creat Clear Calc 37.1 L eGFR 20 L BUN/Creatinine Ratio 26 H Glucose 129 H Calculated Osmolality 311 H Calcium 9.0 Corrected Calcium 9.5 Phosphorus 5.9 H Magnesium 2.5 Total Bilirubin 0.4 AST 15 ALT 10 Alkaline Phosphatase 201 H Total Protein 6.4 Albumin 3.4 Globulin 3.0 Albumin/Globulin Ratio 1.1 L ABG Interpretation ABG results: 04/18/25 04/18/25 04/18/25 04:40 06:27 10:30 ABG pH 7.28 L 7.33 L 7.36 ABG pCO2 72 H* 67 H 61 H ABG pO2 132 H 60 L D 60 L ABG HCO3 34 H 35 H 34 H ABG O2 Saturation 100 H 93 93 ABG Base Excess 6 H 7 H 8 H 04/19/25 05/10/25 08:53 07:40 ABG pH 7.47 H D 7.52 H ABG pCO2 45 D 40 ABG pO2 66 L 60 L ABG HCO3 33 H 32 H ABG O2 Saturation 96 94 ABG Base Excess 8 H 8 H Quality Measures Quality Measures none (None, patient is Pent[employer]ism and has a bleeding sacral wound) Advance care planning discussed with:: patient Assessment & Plan Assessment Current Active Medications: Generic Name Dose Route Start Last Admin Trade Name Freq PRN Reason Stop Dose Admin Acetaminophen 650 mg 05/01/25 08:47 05/17/25 11:50 Acetaminophen 325 Mg Tablet PO 05/22/25 20:42 650 mg Q6HR PRN Administration pain 1-3 OR Fever >100.4 Hydrocodone Bitart/Acetaminophen 1 tab 05/18/25 19:07 05/22/25 02:06 Hydrocodone/Apap 7.5/325 Tablet PO 05/23/25 19:06 1 tab Q6HR PRN Administration PAIN SCALE 4-10(Mod-Sev Acetylcysteine 3 ml 05/10/25 15:00 05/22/25 06:51 Acetylcysteine Rt Gloria 10% 4 Ml Nebu INH 06/09/25 14:59 3 ml Q8HRRT KOURTNEY Administration Albuterol/Ipratropium 3 ml 05/10/25 15:00 05/22/25 06:51 Albuterol/Ipratropium (Duoneb) Rt Gloria 3 Ml Nebu INH 06/09/25 14:59 3 ml Q8HRRT KOURTNEY Administration Amiodarone HCl 200 mg 05/12/25 13:45 05/21/25 08:27 Amiodarone Hcl 200 Mg Tablet GT 06/11/25 13:44 200 mg QDAY KOURTNEY Administration Dextrose 25 ml 05/12/25 13:47 Dextrose 50%-Water Inj 50 Ml Syringe IV 06/11/25 13:46 Q15MIN PRN BG 50-70 responsive npo pt Dextrose 50 ml 05/12/25 13:48 Dextrose 50%-Water Inj 50 Ml Syringe IV 06/11/25 13:47 Q15MIN PRN BG <50 OR BG <70 & pt unresponsive Gabapentin 100 mg 05/20/25 14:30 05/22/25 05:42 Gabapentin 100 Mg Capsule GT 06/19/25 14:29 100 mg TID KOURTNEY Administration Glucagon 1 mg 05/12/25 13:49 Glucagon Inj 1 Mg Vial IM 06/11/25 13:48 Q15MIN PRN BG <70, and no IV access Heparin Sodium (Porcine) 2,700 unit 05/21/25 16:12 05/21/25 19:05 Heparin Sod Inj 1000 Unit/Ml Vial 10 Ml INDWELLCAT 06/04/25 16:11 2,700 unit X1 PRN Administration DIALYSIS Albumin Human 25 gm in 100 mls @ 100 mls/min 04/24/25 11:52 Albuminar-25 Ivpb IV PRN PRN DIALYSIS Albumin Human 25 gm in 100 mls @ 100 mls/min 05/21/25 16:13 Albuminar-25 Ivpb IV 05/24/25 16:12 PRN PRN DIALYSIS Insulin Glargine 38 unit 05/13/25 09:00 05/21/25 08:28 Insulin Glargine (Lantus) 5 Unit/0.05 Ml (Per 5 Units) SC 06/12/25 08:59 38 unit QDAY KOURTNEY Administration Insulin Human Lispro 0 unit 05/12/25 18:00 05/22/25 05:42 Insulin Lispro (Admelog) 1 Unit/0.01 Ml Unit SC 06/11/25 17:59 Not Given Q6HR KOURTNEY Protocol Lansoprazole 30 mg 05/05/25 09:00 05/21/25 08:27 Lansoprazole 30 Mg Tab.Joshua. GT 06/04/25 08:59 30 mg QDAY KOURTNEY Administration Pharmacy Consult 1 each 05/14/25 08:22 Pharmacy Renal Dose Adjustment 1 Ea XX 06/13/25 08:21 PRN PRN CONSULT Sennosides 2 tab 05/02/25 09:00 05/21/25 08:27 Senna Tablet GT 06/01/25 08:59 2 tab QDAY KOURTNEY Administration Protocol Sevelamer Carbonate 0.8 gm 05/20/25 09:45 05/21/25 17:48 Sevelamer Carbonate 0.8 Gm Packet (Non-Formulary) GT 06/19/25 09:44 Not Given TIDWM KOURTNEY Sodium Hypochlorite 473 ml 05/06/25 21:00 05/21/25 21:09 Sod Hypochlorite 1/4 Str 473 Ml Btl IRRIG 06/05/25 20:59 1 applicatio BID KOURTNEY Administration Plan Patient is a 64-year-old male with morbid obesity with subsequent obesity hypoventilation syndrome requiring tracheostomy and J-tube placement, hypertension, type 2 diabetes, atrial fibrillation, right internal jugular DVT and acute kidney injury secondary to ischemic ATN requiring multiple sessions of hemodialysis and sacral ulcers status post wound VAC currently being treated for acute on chronic hypoxic respiratory failure and ischemic ATN. S/p temporary dialysis catheter placement and hemodialysis session 05/21, continue hemodialysis today. Pending bronchoscopy. #Acute kidney injury-suspicion of ischemic ATN, resolved #Fluid overload #Acute on chronic hypoxic respiratory failure, improving. 04/20 ? Attempt was made to place Fuller catheter however unable to pass catheter due to significant resistance and attempt was terminated. Discussed with nursing about possibility of weighing briefs daily. Patient had temporary hemodialysis catheter placed 04/24, receiving dialysis had 1 L removed on 04/24, 2 L on 04/25, 2.14 on 04/26, 2.1 L on 04/29; temporary dialysis catheter discontinued on 05/06 Patient being followed by nephrology, nephrology agrees with diuresis for now, will need close monitoring, poor candidate for dialysis due to body habitus and also has chronic anemia with wound bleeding from sacral region-project director did discuss with patient in detail, he verbalizes understanding. Bumex held on 05/15 due to worsening creatinine, continues to worsen. Due to lack of improvement despite diuretic holiday, discussed with patient today need for hemodialysis in the near future. Patient initially refused but after multiple attempts of counseling and explaining risks and benefits, including , patient was eventually agreeable. S/p temporary hemodialysis catheter placement and hemodialysis session 05/21. Hemodialysis 05/22 and plan for 05/23. Plan: -Nephrology Dr. Li consulted, appreciate recommendations -Hemodialysis today and tomorrow -Monitor CMP -Continue antibiotics -Monitor I&O's -Avoid nephrotoxic agents -Renally dose medication #Acute on Chronic Respiratory Failure secondary to mucous plug #Healthcare-Associated Pneumonia #Leukocytosis Patient noted to have acute on chronic respiratory failure, required bronchoscopy w/ mucous plugs removed. Previous sputum Pseudomnas (04/03/2025) 05/09/2025 Bronchial washing culture grew pseudomonas, sensitive to Zosyn Vancomycin (05/09/2025-05/12/25) and doxycycline (05/12-05/13) were discontinued due to nephrotoxicity. Completed Zosyn course (05/09-05/16/25) Of note, patient has history of Pseudomonnas infection 05/21/25: Patient was having difficulty breathing this morning due to tracheostomy misalignment. Consulted ICU, plan for tracheostomy adjustment today. Plan: -s/p bronchoscopy -per ICU recommendations, start Solumedrol 40 mg IVP BIS for 5-7 days -resume oral and tracheostomy care -Intensitivist Dr. Posey will repeat bronchoscopy at a later time -Completed Levofloxacin (05/14/25-05/21/25) -Blow-by during the day, mechanical ventilation at night as needed at baseline, currently on mechanical ventilation -DuoNeb, Mucomyst and chest physiotherapy scheduled #Paroxysmal atrial fibrillation Per cardiology there is a concern of heart block, tachybradycardia syndrome as well. [id number] score of 3 points indicating 3.2% risk of stroke per year HAS-BLED: 3. High risk of major bleeding 05/13: Discussed with farebox repairer?will start on amiodarone previous dose, 200 mg daily. Per cardiology patient is a poor candidate for pacemaker placement, patient was informed at bedside by cardiology team. He verbalized understanding. Plan: - Continue p.o. amiodarone. - Cardiology consulted, appreciate recommendations - Patient will need anticoagulation, however has low hemoglobin, bleeding wound will defer anticoagulation for now. #Congestive heart failure, HFpEF 65% #Diastolic dysfunction, grade 3 #Pulmonary hypertension #Right heart failure #BASIA/OHS #Moderate to severe a AOV calcification with no stenosis Patient has a past medical history of right heart faillure, Diastolic dysfucntion, and HFpEF 65% likely in the setting of cardiomypoathy seconadary to morbid obesity form BASIA/OHS. Given Cxr noted with prominent vascular congestion, consider repeat BNP, although hemodynamically unstable given pressors but may consider. No pheriphearl edema noted. Cxr (05/09/2025): Mild Heart Failure, Prominent vascular congestion and Moderate to large right pleural effusion Echo (04/29/2025): Normal LV size and function. Estimated EF of 65%. Grade III Diastolic Dysfunction.Right ventricle is dilated with mild RV dysfunction RVSP 47mmHg. RAP 15mmHg.Severe biatrial dilation.Moderate to Severe AOV calcification with no stenosis <ild tricuspid regurgitation. No pericardial effusion. Plan -On hemodialysis -Recommended patient to sit up in bed to help relieve IVC pressure -Cardiology consulted -Patient 1500 cc/day fluid restriction, daily weights, tube feeds resumed -K >4 and Mg >2 #Decubitus ulcer status post excisional debridement of sacral decubitus ulcer Recent debridement of large decubitus ulcer on 05/02/2025 likely secondary to morbid obestiy and lack of mobility. 04/29: excisional debridement of sacral decubitus ulcer, washout and placement of wound VAC. 05/02: Patient had significant bleeding overnight, wound VAC leaked. Hemoglobin stable this morning, patient's bleeding from wound overnight was controlled with suture ligation. Wound was assessed by general surgeon, patient was transitioned back to red dry dressings daily. Plan: -Wound care on hold due to dialysis #Jejunostomy tube #Abdominal abscess - resolved Patient report said that there was an intra-abdominal abscess that have could have been from a perforated ulcer in the past See also note reviewed, mentions that patient likely had a marginal ulcer, but also was not seen on EGD without, currently patient has no abdominal tenderness and is totally asymptomatic. No current drain at this time Patient is status post laparoscopic J-tube placement and is currently on feeds Patient will continue to have this tube and will likely go to a long-term care facility with this until patient can swallow safely Plan: ? Monitor vitals closely #Normocytic normochromic anemia - stable Multifactorial. Patient's baseline hemoglobin throughout the hospitalization has been in the range 9?11, patient did have some bleeding from wound VAC site on 05/02 which was controlled by suture ligation by general surgery. Had recurrent bleeding and eventually heparin drip was held. Hgb continues to hover around 7-8. - Patient is a [employer]ism, denies any blood transfusion/blood products - Monitor CBC #Right internal jugular venous thrombosis #Right arm swelling Continuing free water flushes, patient has gone multiple days of heparin drip since 04/01 Right upper extremity ultrasound May 04-shows right IJ thrombus Plan: ? Continue to hold heparin drip due to recurrent sacral ulcer bleeding #Morbid obesity #DM2 A1C 7.6 on 03/05/2025 Patient has a BMI of 79.5->68.7 Attempted to prescribe tirzepatide to outside pharmacy to bring inpatient however no one is able to pick it up for the patient. Plan: - ISS scale 2 - Hypoglycemia protocol - 38 units of Lantus. Health Maintenance Disposition: Telemetry DVT prophylaxis: SCDs, patient is Pent[employer]ism and has bleeding sacral wound GI prophylaxis: Protonix Diet: 2Cal Tube Feeds with 30 cc/hour water flush CODE STATUS: Full code Patient plan of care was discussed with the senior resident, Dr. Tobar, and attending physician, Dr. Mendoza. Meena Dutta, PGY-1 Attending Provider Attestation/Addendum 64-year-old with morbid obesity with subsequent obesity hypoventilation syndrome requiring tracheostomy and J-tube placement, hypertension, type 2 diabetes, atrial fibrillation, right internal jugular DVT and acute kidney injury secondary to ischemic ATN requiring multiple sessions of hemodialysis and sacral ulcers status post wound VAC currently being treated for acute on chronic hypoxic respiratory failure, ischemic ATN. Overnight, patient noted to have significant bleeding from decubitus ulcer and subsequently general surgery was consulted and heparin drip was discontinued. Talked with the patient regarding discontinuation of heparin drip and given that he has a right internal jugular DVT and atrial fibrillation and updated him that he is at risk for strokes and worsening disease progression however he is in agreement to stop the heparin drip for now. In addition, patient is also a [employer]ism and refusing blood product and I counseled him regarding need of blood product and risk of not getting it including worsening disease progression which can lead to cardiac arrest and however he understands and continues to refuse for which we will respect his decision. As of now, patient kidney function to obtain a TDC and initiate hemodialysis. Anemia is stable and patient appears to be stable on mechanical ventilation with stable setting. As of now, plan to continue hemodialysis and mechanical ventilation and reached out to social media manager regarding finding LTAC. I reviewed above note and agree with findings and plans. I have also personally examined the patient with medicine team and went over assessment and plan with medical team including phd intern and resident physician.
[2025-05-22] MEDS: AMIODARONE HCL 200 MG TABLET GT (08:51)
[2025-05-22] MEDS: SEVELAMER CARBONATE 0.8 GM PACKET (NON-FORMULARY) GT ×3 (08:51→17:54)
[2025-05-22] MEDS: LANSOPRAZOLE 30 MG TAB.RAP.DR GT (08:52)
[2025-05-22] MEDS: INSULIN GLARGINE (Lantus) 5 UNIT/0.05 ML (PER 5 UNITS) 38 UNIT SC (08:59)
--- NOTE | 2025-05-22 08:59 | ESPR_ITS ---
Documentation for date of: 05/22/25 Subjective Subjective Interval history: Mr. rOtega is a 64-year-old male with a past medical history of type 2 diabetes mellitus, history of ATN, A-fib, hypertension, severe right-sided heart failure, HFpEF, severe BASIA, status post tracheostomy and jejunostomy, patient was previously admitted here for hypoxic respiratory failure requiring mechanical ventilation, was later transferred out to [facility] for jejunostomy tube placement, complicated by abdominal abscess, patient is now transferred back to [facility] for further management. The patient was initially noted to have pneumonia and acute hypoxic respiratory failure, requiring mechanical ventilation, nephrology was consulted as patient's renal function continues to worsen. Patient had previously required hemodialysis for ATN, but is a poor dialysis candidate outpatient. Patient did not have any acute events overnight. Patient does not have any complaints/concerns. Planning for temporary HD catheter placement tomorrow. 05/20/2025 patient currently seen in telemetry. No acute overnight events. Took over the care from Dr. Minor. Urine output seems to be acceptable. However azotemia persists. Had a long conversation with the patient and he agreed for temporary dialysis. Labs remarkable for Hgb 7.9, BUN 127, Cr 4.3, eGFR 15, Phos 6.6 05/21/2025 No acute overnight events. Patient states he is doing okay and has no new complaints/concerns. Urine output of 2.2L last 24 hours. However azotemia persists. Temporary dialysis catheter today continues to be the plan. Labs remarkable for Hgb 7.7, BUN 123, Cr 4.4, eGFR 14, Phos 6.6 05/22/2025 No acute overnight events. Patient states he is currently doing okay and has no new complaints/concerns. Urine output 1695 last 24 hours. Patient received dialysis yesterday and improvement in BUN, creatinine and eGFR. Labs are remarkable for Hgb 7.6, BUN 87, Cr 3.3, eGFR 20, Phos 5.9 (6.6). Exam Vital Signs Temp Pulse Resp BP Pulse Ox O2 Del Method O2 Flow Rate 97.5 F 98 21 H 114/71 100 Mechanical Ventilation 65 05/22/25 08:38 05/22/25 08:38 05/22/25 08:38 05/22/25 08:38 05/22/25 08:38 05/22/25 08:00 05/22/25 08:38 FiO2 50 05/22/25 08:38 Narrative Exam GENERAL APPEARANCE: Awake, alert and oriented. No acute distress. NECK: Neck supple, no JVD or bruit, CARDIOVASCULAR: Heart rate regular, no murmurs LUNGS/CHEST: Lungs CTAB, no SOB ABDOMEN: Soft, nontender, nondistended. No masses. Normal bowel sounds. EXTREMITIES: 2+ edema in the lower extremities, mild upper extremity edema SKIN/MSK: Skin in warm, dry and intact without rashes or lesions. Appropriate color for ethnicity. Nailbeds pink with no cyanosis or clubbing. PSYCHIATRIC: Appropriate mood and affect. NEUROLOGICAL : No neurological deficits Objective Labs 05/22/25 04:49 05/22/25 00:44 Labs: Laboratory Results - last 24 hr 05/21/25 05/22/25 05/22/25 11:24 00:44 04:49 WBC 14.5 H RBC 2.65 L Hgb 7.6 L Hct 24.5 L MCV 93 MCH 28.7 MCHC 31.0 RDW Std Deviation 60.4 H Plt Count 442 H D Neut % (Auto) 67 Lymph % (Auto) 18 Brantley % (Auto) 11 Eos % (Auto) 3 Baso % (Auto) 0 Neut # (Auto) 9.7 H Lymph # (Auto) 2.6 Brantley # (Auto) 1.5 H Eos # (Auto) 0.4 Baso # (Auto) 0.1 Immature Gran # (Auto) 0.17 H Absolute Nucleated RBC 0.00 Immature Gran % 1 H Nucleated RBC % 0 PT 12.4 H INR 1.1 APTT 29.2 Sodium 142 Potassium 4.2 D Chloride 100 Carbon Dioxide 27.2 Anion Gap 15 BUN 87 H Creatinine 3.3 H D Estim Creat Clear Calc 37.1 L eGFR 20 L BUN/Creatinine Ratio 26 H Glucose 129 H Calculated Osmolality 311 H Calcium 9.0 Corrected Calcium 9.5 Phosphorus 5.9 H Magnesium 2.5 Total Bilirubin 0.4 AST 15 ALT 10 Alkaline Phosphatase 201 H Total Protein 6.4 Albumin 3.4 Globulin 3.0 Albumin/Globulin Ratio 1.1 L ABG Interpretation ABG results: 04/18/25 04/18/25 04/18/25 04:40 06:27 10:30 ABG pH 7.28 L 7.33 L 7.36 ABG pCO2 72 H* 67 H 61 H ABG pO2 132 H 60 L D 60 L ABG HCO3 34 H 35 H 34 H ABG O2 Saturation 100 H 93 93 ABG Base Excess 6 H 7 H 8 H 04/19/25 05/10/25 08:53 07:40 ABG pH 7.47 H D 7.52 H ABG pCO2 45 D 40 ABG pO2 66 L 60 L ABG HCO3 33 H 32 H ABG O2 Saturation 96 94 ABG Base Excess 8 H 8 H Quality Measures Quality Measures none (None, patient is Orthodox and has a bleeding sacral wound) Advance care planning discussed with:: patient Assessment & Plan Assessment Current Active Medications: Generic Name Dose Route Start Last Admin Trade Name Freq PRN Reason Stop Dose Admin Acetaminophen 650 mg 05/01/25 08:47 05/17/25 11:50 Acetaminophen 325 Mg Tablet PO 05/22/25 20:42 650 mg Q6HR PRN Administration pain 1-3 OR Fever >100.4 Hydrocodone Bitart/Acetaminophen 1 tab 05/18/25 19:07 05/22/25 02:06 Hydrocodone/Apap 7.5/325 Tablet PO 05/23/25 19:06 1 tab Q6HR PRN Administration PAIN SCALE 4-10(Mod-Sev Acetylcysteine 3 ml 05/10/25 15:00 05/22/25 06:51 Acetylcysteine Rt Gloria 10% 4 Ml Nebu INH 06/09/25 14:59 3 ml Q8HRRT KOURTNEY Administration Albuterol/Ipratropium 3 ml 05/10/25 15:00 05/22/25 06:51 Albuterol/Ipratropium (Duoneb) Rt Gloria 3 Ml Nebu INH 06/09/25 14:59 3 ml Q8HRRT KOURTNEY Administration Amiodarone HCl 200 mg 05/12/25 13:45 05/21/25 08:27 Amiodarone Hcl 200 Mg Tablet GT 06/11/25 13:44 200 mg QDAY KOURTNEY Administration Dextrose 25 ml 05/12/25 13:47 Dextrose 50%-Water Inj 50 Ml Syringe IV 06/11/25 13:46 Q15MIN PRN BG 50-70 responsive npo pt Dextrose 50 ml 05/12/25 13:48 Dextrose 50%-Water Inj 50 Ml Syringe IV 06/11/25 13:47 Q15MIN PRN BG <50 OR BG <70 & pt unresponsive Gabapentin 100 mg 05/20/25 14:30 05/22/25 05:42 Gabapentin 100 Mg Capsule GT 06/19/25 14:29 100 mg TID KOURTNEY Administration Glucagon 1 mg 05/12/25 13:49 Glucagon Inj 1 Mg Vial IM 06/11/25 13:48 Q15MIN PRN BG <70, and no IV access Heparin Sodium (Porcine) 2,700 unit 05/21/25 16:12 05/21/25 19:05 Heparin Sod Inj 1000 Unit/Ml Vial 10 Ml INDWELLCAT 06/04/25 16:11 2,700 unit X1 PRN Administration DIALYSIS Albumin Human 25 gm in 100 mls @ 100 mls/min 04/24/25 11:52 Albuminar-25 Ivpb IV PRN PRN DIALYSIS Albumin Human 25 gm in 100 mls @ 100 mls/min 05/21/25 16:13 Albuminar-25 Ivpb IV 05/24/25 16:12 PRN PRN DIALYSIS Insulin Glargine 38 unit 05/13/25 09:00 05/21/25 08:28 Insulin Glargine (Lantus) 5 Unit/0.05 Ml (Per 5 Units) SC 06/12/25 08:59 38 unit QDAY KOURTNEY Administration Insulin Human Lispro 0 unit 05/12/25 18:00 05/22/25 05:42 Insulin Lispro (Admelog) 1 Unit/0.01 Ml Unit SC 06/11/25 17:59 Not Given Q6HR [facility] Protocol Lansoprazole 30 mg 05/05/25 09:00 05/21/25 08:27 Lansoprazole 30 Mg Tab.Rap GT 06/04/25 08:59 30 mg QDAY KOURTNEY Administration Pharmacy Consult 1 each 05/14/25 08:22 Pharmacy Renal Dose Adjustment 1 Ea XX 06/13/25 08:21 PRN PRN CONSULT Sennosides 2 tab 05/02/25 09:00 05/21/25 08:27 Senna Tablet GT 06/01/25 08:59 2 tab QDAY KOURTNEY Administration Protocol Sevelamer Carbonate 0.8 gm 05/20/25 09:45 05/21/25 17:48 Sevelamer Carbonate 0.8 Gm Packet (Non-Formulary) GT 06/19/25 09:44 Not Given TIDWM KOURTNEY Sodium Hypochlorite 473 ml 05/06/25 21:00 05/21/25 21:09 Sod Hypochlorite 1/4 Str 473 Ml Btl IRRIG 06/05/25 20:59 1 applicatio BID KOURTNEY Administration Plan In summary, Mr. Ortega is a 64-year-old male with past medical history of DM2, hypertension, A-fib, and Jehova's witness was admitted to the ICU on 02/27/2025 for shock and acute on chronic hypoxic respiratory failure. He is s/p laparoscopic J-tube placement from [facility]. #Acute kidney injury-- seems to be in Ischemic ATN #Fluid overload Patient was admitted with acute kidney injury likely ischemic acute tubular necrosis, received temporary hemodialysis catheter placed 04/24, receiving dialysis had 1 L removed on 04/24, 2 L on 04/25, 2.14 on 04/26, 2.1 L on 04/29; temporary dialysis catheter discontinued on 05/06. After getting dialysis 05/21, patient's kidney function has started to improve with BUN 87, Cr 3.3, eGFR 20. Plan: -Tentatively planning for Dialysis. -Will discuss if more frequent dialysis with shorter sessions in order to be considered acceptable for LTAC. -Monitor I&O's -Avoid nephrotoxic agents -Renally dose medication #Acute on Chronic Respiratory Failure secondary to mucous plug #Healthcare-Associated Pneumonia #Leukocytosis #Paroxysmal atrial fibrillation #Right diastolic CHF #Decubitus ulcer #Chronic back pain #Jejunostomy tube #Normocytic normochromic anemia #Acute on Chronic Hypoxic Hypercapnic Respiratory Failure #Obesity hypoventilation syndrome and obstructive sleep apnea #Tracheostomy #Hx of A-fib #Right internal jugular venous thrombosis #Right arm swelling #Morbid obesity #DM2 Above handled by primary hospitalist team Patient seen and care discussed with my attending physician, Dr. Teressa Fox MD PGY-1 Internal Medicine Attending Provider Attestation/Addendum Patient seen and examined with resident physician Dr. Fox. Note reviewed, agree with findings and recommendations. BUN/creatinine elevated again- ?? going into ATN. Edema ++ Labs 3 times weekly with pediatric tubes due to his Orthodox status. Had a long conversation with the patient-agreed for temporary dialysis. Unfortunately IR cannot do permanent catheter -- agreed to do temporary catheter due to his BMI. Dialysis catheter placed by Dr. Galicia in the right IJ. Patient received 1 dialysis session yesterday. patient currently seen on dialysis. Tolerating dialysis without any problems. Hemodialysis for 2.5 hours, 2K, ultrafiltration 1 L, Epogen 6000, no heparin ordered. Plan of care discussed with the dialysis nurse. Please see dialysis flowsheet for further details. Next dialysis will be scheduled for tomorrow. He will need LTAC placement with dialysis.
--- NOTE | 2025-05-22 09:30 | PC.SS ---
Follow up note: Bronchoscopy today. Pt has temporary dialysis cath. Pt will have dialysis tomorrow. SS has spoken [facility] to explain pt possibly will be medically ready for d/c on Tuesday. Pt requires to be medically stable for 48 hours for the medical billing specialist from patient's health insurance to review inquiry for placement. Pt is possible d/c to LTAC. SS attempted to contact Mara at [phone] from [facility] in [place] to follow up if they can accept pt with temporary dialysis cath. SS was only able to leave voicemail.
--- NOTE | 2025-05-22 10:05 | ESPR_ITS ---
<Statement entered by Apoloina Ruth MD - 05/23/25 09:48> TOTAL TIME: 45MINUTES ON DIRECT MEDICAL CARE, MANAGEMENT - COORDINATION AND COUNSELING > 50% OF TOTAL TIME I saw and evaluated the patient. I reviewed the resident?s note and agree with findings and plan as documented in the resident?s note. Documentation for date of: 05/22/25 Subjective Subjective Interval history: Mr. Ortega is a 64-year-old male with past medical history of chronic respiratory failure status post tracheostomy 03/14/2025 at [facility], morbid obesity status post Diego-en-Y gastric bypass status post J-tube placement at [facility] [place], type 2 diabetes mellitus, hypertension,, atrial fibrillation, chronic heart failure with preserved ejection fraction, grade 3 diastolic dysfunction, right heart failure, BASIA/OHS, KENIA on CKD currently on dialysis, anemia and chronic decubitus unstageable sacral ulcer status postdebridement 04/29/2025 who is currently admitted to the hospital for KENIA/ATN progressing to ESRD, acute on chronic hypoxic and hypercapnic respiratory failure, recurrent pneumonia. Patient has had a long hospital course, was admitted to [facility] recently and February 2025, patient was intubated due to acute hypercapnic and hypoxic respiratory failure with the progression of hospital course patient required multiple intubations for worsening hypercapnic encephalopathy and respiratory failure. Patient was eventually trached on 03/14/25 by general surgery, tracheostomy done with size 8 extra long cuffed tracheostomy. Further patient was downgraded to telemetry for continued management and possible PEG tube placement, however patient could not have the tube placed by gastroenterology as patient had a very small gastric pouch in setting of Diego-en-Y gastrojejunostomy, was eventually transferred to [facility] for J-tube placement and was transferred back to [facility] on 04/13/2025 for management. For the last month patient had surgical debridement done by general surgeon for unstageable sacral wound, eventually developed fluid overload status for which temporary dialysis catheter was placed receiving 4 sessions of hemodialysis after which patient was weaned off of dialysis and temporary dialysis catheter was discontinued on 05/06. Patient was upgraded to ICU on 05/09/2025 due to symptomatic bradycardia, cardiology was consulted. During the ICU course patient was found to have thick mucus on bronchoscopy done by pulmonology/critical care, patient was noted to have a large mucous plug in left mainstem which was suctioned out. Patient was eventually downgraded back to telemetry on 05/11/2025. Since downgrade patient has developed worsening renal function with fluid overload status requiring temporary hemodialysis catheter placement per nephrology. 05/21/2025: Pulmonology consulted today for acute respiratory distress. Possible tracheostomy misalignment, patient earlier this morning was having difficulty breathing. Patient seen at bedside, transition to pressure support earlier this morning and he continues to have difficulty breathing with increased work of breathing, patient's tracheostomy site assessed during assessment copious amount of thick sputum was noted, patient has been getting chest physiotherapy, Mucomyst and scheduled suctioning per nursing. However once tracheostomy cuff was deflated patient's respiratory distress improved, patient will likely need bronchoscopy to assess tracheostomy site for any granulation tissue or excessive mucus secretion/plug. 05/22/2025: Patient had bronchoscopy done today at bedside postdialysis. See bronchoscopy report for details, granulation tissue noted below trach, trach in good position, area below vocal cords has no edema, granulation tissue. Low suspicion of infection, no exudates seen. Patient will benefit from IV methylprednisolone 40 milligram twice daily, Keep tracheostomy cuff deflated for now, continue pressure support as primary setting. We can repeat bronchoscopy in 7 to 10 days to assess site again. Patient also does have underlying treatment emergent central sleep apnea, we will try to start patient on SIMV- pressure support, backup rate per minute, tidal volume 500. Otherwise if patient continues to have apnea at night, we can change apnea alarm to greater than 35 seconds. Will continue to monitor. Exam Vital Signs Temp Pulse Resp BP Pulse Ox O2 Del Method O2 Flow Rate 97.5 F 72 21 H 116/68 100 Mechanical Ventilation 65 05/22/25 08:38 05/22/25 10:02 05/22/25 08:38 05/22/25 10:02 05/22/25 08:38 05/22/25 08:00 05/22/25 08:38 FiO2 50 05/22/25 08:38 Narrative Exam General: Awake. obese. Tracheostomy tube insitu on pressure support HEENT: Normocephalic, atraumatic, mucous membranes moist. Heart: IRRegular rate and rhythm, no murmurs. Lungs: Clear to auscultation with no wheezing or crackles. But noted decreased breath sounds bilaterally in view of body habitus. noted subclavian line on right side Abdomen: Soft, nondistended, nontender, positive bowel sounds. ?No guarding or rebound tenderness. Neurologic: Alert and oriented x3, no gross neurological deficit, and patient able to move all 4 extremities. Extremities: No edema. Skin: Large sacral ulcer in the gluteal region, Decubitus Grade III/IV Objective Labs 05/22/25 04:49 05/22/25 00:44 Labs: Laboratory Results - last 24 hr 05/21/25 05/22/25 05/22/25 11:24 00:44 04:49 WBC 14.5 H RBC 2.65 L Hgb 7.6 L Hct 24.5 L MCV 93 MCH 28.7 MCHC 31.0 RDW Std Deviation 60.4 H Plt Count 442 H D Neut % (Auto) 67 Lymph % (Auto) 18 Heard % (Auto) 11 Eos % (Auto) 3 Baso % (Auto) 0 Neut # (Auto) 9.7 H Lymph # (Auto) 2.6 Heard # (Auto) 1.5 H Eos # (Auto) 0.4 Baso # (Auto) 0.1 Immature Gran # (Auto) 0.17 H Absolute Nucleated RBC 0.00 Immature Gran % 1 H Nucleated RBC % 0 PT 12.4 H INR 1.1 APTT 29.2 Sodium 142 Potassium 4.2 D Chloride 100 Carbon Dioxide 27.2 Anion Gap 15 BUN 87 H Creatinine 3.3 H D Estim Creat Clear Calc 37.1 L eGFR 20 L BUN/Creatinine Ratio 26 H Glucose 129 H Calculated Osmolality 311 H Calcium 9.0 Corrected Calcium 9.5 Phosphorus 5.9 H Magnesium 2.5 Total Bilirubin 0.4 AST 15 ALT 10 Alkaline Phosphatase 201 H Total Protein 6.4 Albumin 3.4 Globulin 3.0 Albumin/Globulin Ratio 1.1 L ABG Interpretation ABG results: 04/18/25 04/18/25 04/18/25 04:40 06:27 10:30 ABG pH 7.28 L 7.33 L 7.36 ABG pCO2 72 H* 67 H 61 H ABG pO2 132 H 60 L D 60 L ABG HCO3 34 H 35 H 34 H ABG O2 Saturation 100 H 93 93 ABG Base Excess 6 H 7 H 8 H 04/19/25 05/10/25 08:53 07:40 ABG pH 7.47 H D 7.52 H ABG pCO2 45 D 40 ABG pO2 66 L 60 L ABG HCO3 33 H 32 H ABG O2 Saturation 96 94 ABG Base Excess 8 H 8 H Quality Measures Quality Measures none (None, patient is Jehovah's witness and has a bleeding sacral wound) Advance care planning discussed with:: patient Assessment & Plan Assessment Current Active Medications: Generic Name Dose Route Start Last Admin Trade Name Freq PRN Reason Stop Dose Admin Acetaminophen 650 mg 05/01/25 08:47 05/17/25 11:50 Acetaminophen 325 Mg Tablet PO 05/22/25 20:42 650 mg Q6HR PRN Administration pain 1-3 OR Fever >100.4 Hydrocodone Bitart/Acetaminophen 1 tab 05/18/25 19:07 05/22/25 02:06 Hydrocodone/Apap 7.5/325 Tablet PO 05/23/25 19:06 1 tab Q6HR PRN Administration PAIN SCALE 4-10(Mod-Sev Acetylcysteine 3 ml 05/10/25 15:00 05/22/25 06:51 Acetylcysteine Rt Gloria 10% 4 Ml Nebu INH 06/09/25 14:59 3 ml Q8HRRT KOURTNEY Administration Albuterol/Ipratropium 3 ml 05/10/25 15:00 05/22/25 06:51 Albuterol/Ipratropium (Duoneb) Rt Gloria 3 Ml Nebu INH 06/09/25 14:59 3 ml Q8HRRT KOURTNEY Administration Amiodarone HCl 200 mg 05/12/25 13:45 05/22/25 08:51 Amiodarone Hcl 200 Mg Tablet GT 06/11/25 13:44 200 mg QDAY KOURTNEY Administration Dextrose 25 ml 05/12/25 13:47 Dextrose 50%-Water Inj 50 Ml Syringe IV 06/11/25 13:46 Q15MIN PRN BG 50-70 responsive npo pt Dextrose 50 ml 05/12/25 13:48 Dextrose 50%-Water Inj 50 Ml Syringe IV 06/11/25 13:47 Q15MIN PRN BG <50 OR BG <70 & pt unresponsive Gabapentin 100 mg 05/20/25 14:30 05/22/25 05:42 Gabapentin 100 Mg Capsule GT 06/19/25 14:29 100 mg TID KOURTNEY Administration Glucagon 1 mg 05/12/25 13:49 Glucagon Inj 1 Mg Vial IM 06/11/25 13:48 Q15MIN PRN BG <70, and no IV access Heparin Sodium (Porcine) 2,700 unit 05/21/25 16:12 05/21/25 19:05 Heparin Sod Inj 1000 Unit/Ml Vial 10 Ml INDWELLCAT 06/04/25 16:11 2,700 unit X1 PRN Administration DIALYSIS Albumin Human 25 gm in 100 mls @ 100 mls/min 04/24/25 11:52 Albuminar-25 Ivpb IV PRN PRN DIALYSIS Albumin Human 25 gm in 100 mls @ 100 mls/min 05/21/25 16:13 Albuminar-25 Ivpb IV 05/24/25 16:12 PRN PRN DIALYSIS Insulin Glargine 38 unit 05/13/25 09:00 05/22/25 08:59 Insulin Glargine (Lantus) 5 Unit/0.05 Ml (Per 5 Units) SC 06/12/25 08:59 38 unit QDAY KOURTNEY Administration Insulin Human Lispro 0 unit 05/12/25 18:00 05/22/25 05:42 Insulin Lispro (Admelog) 1 Unit/0.01 Ml Unit SC 06/11/25 17:59 Not Given Q6HR KOURTNEY Protocol Lansoprazole 30 mg 05/05/25 09:00 05/22/25 08:52 Lansoprazole 30 Mg Tab. GT 06/04/25 08:59 30 mg QDAY KOURTNEY Administration Pharmacy Consult 1 each 05/14/25 08:22 Pharmacy Renal Dose Adjustment 1 Ea XX 06/13/25 08:21 PRN PRN CONSULT Sennosides 2 tab 05/02/25 09:00 05/22/25 08:52 Senna Tablet GT 06/01/25 08:59 2 tab QDAY KOURTNEY Administration Protocol Sevelamer Carbonate 0.8 gm 05/20/25 09:45 05/22/25 08:51 Sevelamer Carbonate 0.8 Gm Packet (Non-Formulary) GT 06/19/25 09:44 0.8 gm TIDWM KOURTNEY Administration Sodium Hypochlorite 473 ml 05/06/25 21:00 05/21/25 21:09 Sod Hypochlorite 1/4 Str 473 Ml Btl IRRIG 06/05/25 20:59 1 applicatio BID [facility] Administration Plan Summary: Mr. Ortega is a 64-year-old male with past medical history of chronic respiratory failure status post tracheostomy 03/14/2025 at [facility], morbid obesity status post Diego-en-Y gastric bypass status post J-tube placement at [facility] [place], type 2 diabetes mellitus, hypertension,, atrial fibrillation, congestive heart failure with preserved ejection fraction, grade 3 diastolic dysfunction, right heart failure, BASIA/OHS, KENIA on CKD currently on dialysis, anemia and chronic decubitus unstageable sacral ulcer status postdebridement 04/29/2025 who is currently admitted to the hospital for KENIA/ATN progressing to ESRD, acute on chronic hypoxic and hypercapnic respiratory failure, recurrent pneumonia. Pulmonology consulted today for tracheostomy assessment and respiratory distress. #Acute respiratory distress #Tracheostomy malpositioned ruled out #Granulation tissue below tracheostomy tube #Status post bronchoscopy 05/22/2025 #Chronic respiratory failure status post trach -Pulmonology consulted today for acute respiratory distress, patient earlier this morning was having difficulty breathing, transitioned to pressure support earlier this morning. -Continues to have difficulty breathing with increased work of breathing -Tracheostomy site assessed during assessment copious amount of thick sputum was noted -Patient had a bronch done in April, was noted to have large mucous plug in the left mainstem bronchus -Status post bronchoscopy, granulation tissue noted below trach, trach in good position, area below vocal cords has no edema, granulation tissue. Low suspicion of infection, no exudates seen. Plan: - Recommend IV methylprednisolone 40 mg twice daily for 5 to 7 days - Consider repeating bronchoscopy in 7 to 10 days to assess site again. - Continue pressure support, keep tracheostomy cuff deflated - Abrasive brushing with Peridex and suctioning of mouth to reduce the risk of infection - Continue chest physiotherapy with mechanical percussive every 8 hours - Continue breathing treatment and Mucomyst - Continue with suctioning as needed - Continue pressure support on Mechanical Vent as primary setting #Treatment emergent central sleep apnea (TECSA) Patient reported that his ventilator wakes him up at night, on review of log apnea alarm noted. Patient has history of BASIA, status post trach likely has treatment emergent central sleep apnea. Plan: - Vent mode: PRVC SIMV, titrate O2 to maintain SPO2 at 92, rate 5, tidal volume 500, PEEP 8, pressure support 10 - Patient was started on more this afternoon, patient did not tolerate well - Will try again in a.m. #Morbid obesity status post Diego-en-Y and Y gastric bypass status post J-tube placement #Type 2 diabetes mellitus #Hypertension #Atrial fibrillation #Congestive heart failure with preserved ejection fraction #Grade 3 diastolic dysfunction #Right heart failure #Obstructive sleep apnea/obesity hypoventilation syndrome #KENIA/ATN progressing to ESRD status post temporary dialysis catheter placement 05/21/2025 #Normocytic normochromic anemia #Unstageable sacral ulcer status postdebridement 04/29/2025 - Management as per primary team Case discussed with Attending Dr. Ruth. Elizabeth Lamas MD Internal medicine resident PGY 2 Disclaimer: This note was dictated by speech recognition. Minor errors in bolt maker may be present due to voice recognition software.
--- NOTE | 2025-05-22 10:26 | PC.SS ---
SS spoke to Mara from [facility] in [place] who explained they are unable to accept due to pt having a temporary dialysis cath. They require a permanent dialysis cath. SS spoke to Jose from [facility] and they are able to accept with temporary dialysis cath.
--- NOTE | 2025-05-22 11:23 | PC.NURSE ---
BP Drop, 100 ml Albumin, 25%, 25g IVP
[2025-05-22] MEDS: HEPARIN SOD INJ 1000 UNIT/ML VIAL 10 ML 2700 UNIT INDWELLCAT (11:57)
[2025-05-22] MEDS: ALBUMIN HUMAN 25% IVPB 25 GM/100 ML BTL IV (11:58)
[2025-05-22] MEDS: LIDOCAINE HCL 1% 20 ML VIAL TOP (12:24)
[2025-05-22] MEDS: CHLORHEXIDINE MOUTHWASH 0.12% UDC 15 ML PO (14:38)
[2025-05-22] MEDS: SOD HYPOCHLORITE 1/4 STR 473 ML BTL IRRIG ×2 (15:30→21:57)
--- NOTE | 2025-05-22 15:53 | ESPR_ITS ---
<Statement entered by Lenora John MD - 05/26/25 17:59> I personally examined the patient evaluated and telemetry patient is clinically stable remains in atrial fibrillation rate controlled well continue amiodarone for now. I reviewed the progress note all essential components of the resident physician PGY 2 Dr. Kirk Ahumada agree with the treatment plan recommendation as documented Documentation for date of: 05/22/25 Subjective Subjective Interval history: Patient is seen and examined at bedside No acute overnight events. Denies any further new complaints except for feeling of mucus stuck in his throat Elder Assistant, Dr. Ruth is consulted in view of suspected mucous plugging at the site of tracheostomy. Patient underwent bronchoscopy this morning Also underwent hemodialysis yesterday Vitals are stable and still in A-fib with controlled ventricular rate, 100 to 110 bpm. On mechanical ventilator, pressure support mode, saturating 99% Producing adequate amount of urine output Labs showed BUN 87, creatinine 3.3 Recommended to continue amiodarone 200 Mg through G-tube daily Exam Vital Signs Temp Pulse Resp BP Pulse Ox O2 Del Method O2 Flow Rate 96.9 F 101 H 15 95/73 100 Mechanical Ventilation 65 05/22/25 12:00 05/22/25 14:01 05/22/25 14:01 05/22/25 12:00 05/22/25 14:01 05/22/25 12:00 05/22/25 12:00 FiO2 50 05/22/25 14:01 Narrative Exam General: Awake. obese. Tracheostomy tube insitu on pressure support HEENT: Normocephalic, atraumatic, mucous membranes moist. Heart: IRRegular rate and rhythm, no murmurs. Lungs: Clear to auscultation with no wheezing or crackles. But noted decreased breath sounds bilaterally in view of body habitus. noted right IJV catheter on right side Abdomen: Soft, nondistended, nontender, positive bowel sounds. ?No guarding or rebound tenderness. Neurologic: Alert and oriented x3, no gross neurological deficit, and patient able to move all 4 extremities. Extremities: No edema. Skin: Large sacral ulcer in the gluteal region, Decubitus Grade III/IV Objective Labs 05/22/25 04:49 05/22/25 00:44 Labs: Laboratory Results - last 24 hr 05/22/25 05/22/25 00:44 04:49 WBC 14.5 H RBC 2.65 L Hgb 7.6 L Hct 24.5 L MCV 93 MCH 28.7 MCHC 31.0 RDW Std Deviation 60.4 H Plt Count 442 H D Neut % (Auto) 67 Lymph % (Auto) 18 Ramsey % (Auto) 11 Eos % (Auto) 3 Baso % (Auto) 0 Neut # (Auto) 9.7 H Lymph # (Auto) 2.6 Ramsey # (Auto) 1.5 H Eos # (Auto) 0.4 Baso # (Auto) 0.1 Immature Gran # (Auto) 0.17 H Absolute Nucleated RBC 0.00 Immature Gran % 1 H Nucleated RBC % 0 Sodium 142 Potassium 4.2 D Chloride 100 Carbon Dioxide 27.2 Anion Gap 15 BUN 87 H Creatinine 3.3 H D Estim Creat Clear Calc 37.1 L eGFR 20 L BUN/Creatinine Ratio 26 H Glucose 129 H Calculated Osmolality 311 H Calcium 9.0 Corrected Calcium 9.5 Phosphorus 5.9 H Magnesium 2.5 Total Bilirubin 0.4 AST 15 ALT 10 Alkaline Phosphatase 201 H Total Protein 6.4 Albumin 3.4 Globulin 3.0 Albumin/Globulin Ratio 1.1 L ABG Interpretation ABG results: 04/18/25 04/18/25 04/18/25 04:40 06:27 10:30 ABG pH 7.28 L 7.33 L 7.36 ABG pCO2 72 H* 67 H 61 H ABG pO2 132 H 60 L D 60 L ABG HCO3 34 H 35 H 34 H ABG O2 Saturation 100 H 93 93 ABG Base Excess 6 H 7 H 8 H 04/19/25 05/10/25 08:53 07:40 ABG pH 7.47 H D 7.52 H ABG pCO2 45 D 40 ABG pO2 66 L 60 L ABG HCO3 33 H 32 H ABG O2 Saturation 96 94 ABG Base Excess 8 H 8 H Quality Measures Quality Measures none (None, patient is [employer]ism and has a bleeding sacral wound) Advance care planning discussed with:: patient Assessment & Plan Assessment Current Active Medications: Generic Name Dose Route Start Last Admin Trade Name Freq PRN Reason Stop Dose Admin Acetaminophen 650 mg 05/01/25 08:47 05/17/25 11:50 Acetaminophen 325 Mg Tablet PO 05/22/25 20:42 650 mg Q6HR PRN Administration pain 1-3 OR Fever >100.4 Hydrocodone Bitart/Acetaminophen 1 tab 05/18/25 19:07 05/22/25 02:06 Hydrocodone/Apap 7.5/325 Tablet PO 05/23/25 19:06 1 tab Q6HR PRN Administration PAIN SCALE 4-10(Mod-Sev Acetylcysteine 3 ml 05/10/25 15:00 05/22/25 14:00 Acetylcysteine Rt Gloria 10% 4 Ml Nebu INH 06/09/25 14:59 3 ml Q8HRRT KOURTNEY Administration Albuterol/Ipratropium 3 ml 05/10/25 15:00 05/22/25 14:00 Albuterol/Ipratropium (Duoneb) Rt Gloria 3 Ml Nebu INH 06/09/25 14:59 3 ml Q8HRRT KOURTNEY Administration Amiodarone HCl 200 mg 05/12/25 13:45 05/22/25 08:51 Amiodarone Hcl 200 Mg Tablet GT 06/11/25 13:44 200 mg QDAY KOURTNEY Administration Chlorhexidine Gluconate 15 ml 05/22/25 13:30 05/22/25 14:38 Chlorhexidine Mouthwash 0.12% Udc 15 Ml PO 06/21/25 13:29 15 ml DAILY KOURTNEY Administration Dextrose 25 ml 05/12/25 13:47 Dextrose 50%-Water Inj 50 Ml Syringe IV 06/11/25 13:46 Q15MIN PRN BG 50-70 responsive npo pt Dextrose 50 ml 05/12/25 13:48 Dextrose 50%-Water Inj 50 Ml Syringe IV 06/11/25 13:47 Q15MIN PRN BG <50 OR BG <70 & pt unresponsive Gabapentin 100 mg 05/20/25 14:30 05/22/25 14:38 Gabapentin 100 Mg Capsule GT 06/19/25 14:29 100 mg TID KOURTNEY Administration Glucagon 1 mg 05/12/25 13:49 Glucagon Inj 1 Mg Vial IM 06/11/25 13:48 Q15MIN PRN BG <70, and no IV access Heparin Sodium (Porcine) 2,700 unit 05/21/25 16:12 05/22/25 11:57 Heparin Sod Inj 1000 Unit/Ml Vial 10 Ml INDWELLCAT 06/04/25 16:11 2,700 unit X1 PRN Administration DIALYSIS Albumin Human 25 gm in 100 mls @ 100 mls/min 05/21/25 16:13 Albuminar-25 Ivpb IV 05/24/25 16:12 PRN PRN DIALYSIS Insulin Glargine 38 unit 05/13/25 09:00 05/22/25 08:59 Insulin Glargine (Lantus) 5 Unit/0.05 Ml (Per 5 Units) SC 06/12/25 08:59 38 unit QDAY KOURTNEY Administration Insulin Human Lispro 0 unit 05/12/25 18:00 05/22/25 11:42 Insulin Lispro (Admelog) 1 Unit/0.01 Ml Unit SC 06/11/25 17:59 Not Given Q6HR KOURTNEY Protocol Lansoprazole 30 mg 05/05/25 09:00 05/22/25 08:52 Lansoprazole 30 Mg Tab. GT 06/04/25 08:59 30 mg QDAY KOURTNEY Administration Methylprednisolone Sodium Succinate 40 mg 05/22/25 21:00 Methylprednisolone Sod Succ 40 Mg Vial IVP 05/29/25 20:59 BID KOURTNEY Pharmacy Consult 1 each 05/14/25 08:22 Pharmacy Renal Dose Adjustment 1 Ea XX 06/13/25 08:21 PRN PRN CONSULT Sennosides 2 tab 05/02/25 09:00 05/22/25 08:52 Senna Tablet GT 06/01/25 08:59 2 tab QDAY KOURTNEY Administration Protocol Sevelamer Carbonate 0.8 gm 05/20/25 09:45 05/22/25 12:50 Sevelamer Carbonate 0.8 Gm Packet (Non-Formulary) GT 06/19/25 09:44 0.8 gm TIDWM KOURTNEY Administration Sodium Hypochlorite 473 ml 05/06/25 21:00 05/21/25 21:09 Sod Hypochlorite 1/4 Str 473 Ml Btl IRRIG 06/05/25 20:59 1 applicatio BID KOURTNEY Administration Plan Mr. Ortega is a 64-year-old male, Pentecostalism with a past medical history of hypertension, diabetes mellitus type 2, history of atrial fibrillation, CHF HFpEF 65%, grade 3 diastolic dysfunction, right heart failure, RSVP 47, moderate to severe ALB calsifications with no stenosis, status post tracheostomy, s/p PEG Tube at [facility], bariatric team, history of dyspahagia, extensive decubitus ulcers, CKD, history of anemia, history of Diego-en- Y gastric bypass, BASIA/OHS, and morbid obesity. Patient was upgraded to ICU for a third time with in acute respiratory respiratory failure secondary to mucous plug and shock, likely cardiogenic shock secondary to complete heart block requiring pressors and downgraded again # A-fib with RVR - s/p cardioversion ---> CVR # Bradycardia and questionable complete heart block, resolved - Patient was hypoxic and was transferred to the ICU on 05/09/2025. - Cardiology was consulted 05/09/2025 for significant bradycardia requiring external temporary transcutaneous pacing. - Plan was to place a temporary transvenous pacemaker if the patient continues to be bradycardic as he was 100% dependent on the transcutaneous pacing. - Bronchoscopy was performed which showed small mucous plug which was removed and patient rhythm was back to his atrial fibrillation with RVR. - Patient was on dopamine at that point of time. Patient blood pressure was on the lower side and was unstable and required cardioversion x 1. - Patient was on levophed and phenylephrine for a short period of time. - Patient is presently ventilator dependent and has a tracheostomy in place along with a jejunostomy. Plan - Recommend to continue telemetry monitoring - In view of ongoing sacral ulcer with recurrent infections, pacemaker placement cannot be done. But fortunately patient did not have any further episodes of bradycardia. So no need of pacemaker placement as of now - Recommended to continue amiodarone 200 Mg G-tube once daily - As patient had large decubitus ulcer and has tendency to bleed, anticoagulation is held for now # H/O CHF, HFpEF 65% #Diastolic dysfunction, grade 3 #Pulmonary hypertension #BASIA/OHS #Moderate to severe a AOV calcification with no stenosis #Moderate Right Pleural Effusion - Patient has a past medical history of right heart failure, Diastolic dysfunction, and HFpEF 65% likely in the setting of cardiomypoathy secondary to morbid obesity form BASIA/OHS. - [place] [facility] 03/19/2025: RAP 8, PAP 27, PCWP 7. - Echo (04/29/2025): Normal LV size and function. Estimated EF of 65%. Grade III Diastolic Dysfunction.Right ventricle is dilated with mild RV dysfunction RVSP 47mmHg. RAP 15mmHg.Severe biatrial dilation.Moderate to Severe AOV calcification with no stenosis <ild tricuspid regurgitation. No pericardial effusion. - Echo (05/14/2025) : Normal LV size and function. Estimated EF is 55 to 60%. Severely RA dilated right ventricle as well as right atrium. IVS flattening noted both in systole and diastole indicating both pressure and volume overload Plan -Recommended to hold diuresis for now in view of uptrending BUN and creatinine -Pt will be getting dialysis on 05/21/25 -K >4 and Mg >2 #Acute on Chronic Respiratory Failure secondary to mucus plug #Healthcare-Associated Pneumonia #Leukocytosis #Large Sacral Decubitus Ulcer s/p excisional debridement (05/02/2025) #CKD stage III #Jejunostomy #History of abdominal abscess s/p percutaneous drainage #Diabetes Mellitus Type 2 non insulin depedent #Normocytic Anemia Management of rest of the medical conditions as per primary team and other consultants. Thank you for the consult and allowing us to participate in the care of the patient. Cardiology will continue to follow. Patient plan of care was discussed with the [facility] Dr. Alvaro Ahumada, PGY2
--- NOTE | 2025-05-22 21:43 | PD.INTPROC ---
PROCEDURES: Procedure Date / Time 05/22/250 Bronchoscopy Bronscopy indication(s): other (tracheostomy tube patency evaluation) Informed consent obtained from: patient Time out done and the following verified: correct patient, procedure and patient position Oxygen delivery: via mechanical vent. Vocal cords: symmetric equally mobile Trachea: other (subglottic anatomy with minimal non obstructive granulomatous changes at tracheostomy site. below the tracheostomy tube there is moderate granulation and narrowing of the trachea) Meggan: sharp in angle RUL & subsegmental branches: mucosa appears normal RML & subsegmental branches: mucosa appears normal RLL & subsegmental branches: mucosa appears normal DIMAS & subsegmental branches: mucosa appears normal LLL & subsegmental branches: mucosa appears normal EBL: 1 Patient tolerated procedure: well Complications: No
[2025-05-23] VITALS (14 sets, daily range): BP systolic 95–113; BP diastolic 57–83; PULSE 82–123; RESP 14–28; TEMP 36.1–36.6; O2SAT 94–100; BMI 69.1
[2025-05-23] MEDS: INSULIN LISPRO (AdmeLOG) 1 UNIT/0.01 ML UNIT SC ×4 (00:42→17:52)
[2025-05-23] MEDS: HYDROcodone/APAP 7.5/325 TABLET 1 TAB PO (04:56)
[2025-05-23] MEDS: GABAPENTIN 100 MG CAPSULE GT ×3 (05:40→22:34)
[2025-05-23 05:59] LABS: Basophils # (Auto) 0.0 Thou/mm3 (0.0-0.2); Basophils % (Auto) 0 % (0-2.5); Eosinophils # (Auto) 0.0 Thou/mm3 (0.0-0.5); Eosinophils % (Auto) 0 % (0-10); Hematocrit 23.9 % (41.0-53.0); Immature Granulocytes Auto 0.13 Thou/mm3 (0.00-0.00); Lymphocytes # (Auto) 1.5 Thou/mm3 (1.0-4.8); Lymphocytes % (Auto) 11 % (10-50); Mean Corpuscular HGB Conc 30.5 g/dl (31.0-37.0); Mean Corpuscular Hemoglobin 28.3 pg (25.0-35.0); Mean Corpuscular Volume 93 fL (80-100); Monocytes # (Auto) 0.2 Thou/mm3 (0.0-0.8); Monocytes % (Auto) 1 % (0-12); Neutrophils # (Auto) 12.1 Thou/mm3 (1.8-7.7); Neutrophils % (Auto) 87 % (37-80); Nucleated Red Blood Cell # 0.00 Thou/mm3 (0.00-0.00); Nucleated Red Blood Cell % 0 /100 WBC (0); Platelet Count 378 Thou/mm3 (140-440); RDW Standard Deviation 61.0 fL (35.1-43.9); Red Blood Count 2.58 Miln/mm3 (4.50-5.90); White Blood Count 14.0 Thou/mm3 (3.8-10.6)
[2025-05-23 06:02] LABS: Hemoglobin 7.3 g/dL (13.5-16.0)
[2025-05-23 06:39] LABS: Alanine Aminotransferase 8 U/L (10-49); Albumin, Serum 3.5 gm/dL (3.4-4.8); Albumin/Globulin Ratio 1.1 (1.2-2.2); Alkaline Phosphatase 178 U/L (46-116); Anion Gap 12 (7-16); Aspartate Amino Transferase 15 U/L (0-34); BUN/Creatinine Ratio 24 Ratio (12-20); Bilirubin,Total 0.4 mg/dL (0.3-1.2); Blood Urea Nitrogen 71 mg/dL (9-23); Calcium 9.1 mg/dL (8.3-10.6); Calcium (Corrected) 9.5 mg/dL (8.5-10.1); Carbon Dioxide 26.6 mMol/L (20.0-31.0); Chloride 101 mMol/L (98-107); Creatinine (Component) 3.0 mg/dL (0.6-1.3); Estimated Creatinine Clearance 40.9 mL/min (>60); Globulin 3.1 gm/dL (2.3-3.5); Glucose 240 mg/dL (74-106); Magnesium 2.3 mg/dL (1.6-2.6); Osmolality,Calculated 308 (275-295); Phosphorous 5.0 mg/dL (2.4-5.1); Potassium 4.8 mMol/L (3.4-5.1); Sodium 140 mMol/L (136-145); Total Protein 6.6 gm/dL (5.7-8.2); eGFR 22 See Note
[2025-05-23] MEDS: ACETYLCYSTEINE RT SOL 10% 4 ML NEBU 3 ML INH ×3 (06:47→22:06)
[2025-05-23] MEDS: ALBUTEROL/IPRATROPIUM (Duoneb) RT SOL 3 ML NEBU INH ×3 (06:47→22:06)
[2025-05-23] MEDS: SEVELAMER CARBONATE 0.8 GM PACKET (NON-FORMULARY) GT ×3 (08:00→17:10)
[2025-05-23] MEDS: CHLORHEXIDINE MOUTHWASH 0.12% UDC 15 ML PO (08:30)
[2025-05-23] MEDS: LANSOPRAZOLE 30 MG TAB.RAP.DR GT (08:30)
[2025-05-23] MEDS: AMIODARONE HCL 200 MG TABLET GT (08:34)
[2025-05-23] MEDS: INSULIN GLARGINE (Lantus) 5 UNIT/0.05 ML (PER 5 UNITS) 38 UNIT SC (08:34)
[2025-05-23] MEDS: SOD HYPOCHLORITE 1/4 STR 473 ML BTL IRRIG ×2 (08:35→20:50)
--- NOTE | 2025-05-23 10:22 | ESPR_ITS ---
Documentation for date of: 05/23/25 Subjective Subjective Interval history: Mr. Ortega is a 64-year-old male with a past medical history of type 2 diabetes mellitus, history of ATN, A-fib, hypertension, severe right-sided heart failure, HFpEF, severe BASIA, status post tracheostomy and jejunostomy, patient was previously admitted here for hypoxic respiratory failure requiring mechanical ventilation, was later transferred out to [facility] for jejunostomy tube placement, complicated by abdominal abscess, patient is now transferred back to [facility] for further management. The patient was initially noted to have pneumonia and acute hypoxic respiratory failure, requiring mechanical ventilation, nephrology was consulted as patient's renal function continues to worsen. Patient had previously required hemodialysis for ATN, but is a poor dialysis candidate outpatient. Patient did not have any acute events overnight. Patient does not have any complaints/concerns. Planning for temporary HD catheter placement tomorrow. 05/20/2025 patient currently seen in telemetry. No acute overnight events. Took over the care from Dr. Minor. Urine output seems to be acceptable. However azotemia persists. Had a long conversation with the patient and he agreed for temporary dialysis. Labs remarkable for Hgb 7.9, BUN 127, Cr 4.3, eGFR 15, Phos 6.6 05/21/2025 No acute overnight events. Patient states he is doing okay and has no new complaints/concerns. Urine output of 2.2L last 24 hours. However azotemia persists. Temporary dialysis catheter today continues to be the plan. Labs remarkable for Hgb 7.7, BUN 123, Cr 4.4, eGFR 14, Phos 6.6 05/22/2025 No acute overnight events. Patient states he is currently doing okay and has no new complaints/concerns. Urine output 1695 last 24 hours. Patient received dialysis yesterday and improvement in BUN, creatinine and eGFR. Labs are remarkable for Hgb 7.6, BUN 87, Cr 3.3, eGFR 20, Phos 5.9 (6.6). 05/23/2025 No acute overnight events. Patient states he is currently doing okay and has no new complaints/concerns. Urine output 1694 last 24 hours with 1312 ml output from dialysis yesterday. Patient received dialysis yesterday with continued improvement in BUN, creatinine and eGFR. Labs are remarkable for Hgb 7.3, BUN 71, Cr 3.0, glucose 240, eGFR 22, Ca 9.1, Phos 5.0, Mg 2.3 Exam Vital Signs Temp Pulse Resp BP Pulse Ox O2 Del Method O2 Flow Rate 97.8 F 90 17 100/66 96 Mechanical Ventilation 65 05/23/25 08:00 05/23/25 08:34 05/23/25 08:00 05/23/25 08:34 05/23/25 08:00 05/23/25 08:00 05/23/25 08:00 FiO2 50 05/23/25 08:00 Narrative Exam GENERAL APPEARANCE: Awake, alert and oriented. No acute distress. NECK: Neck supple, no JVD or bruit, R IJ dialysis catheter CARDIOVASCULAR: Heart rate regular, no murmurs LUNGS/CHEST: Lungs CTAB, no SOB ABDOMEN: Soft, nontender, nondistended. No masses. Normal bowel sounds. EXTREMITIES: 2+ edema in the lower extremities, mild upper extremity edema SKIN/MSK: Skin in warm, dry and intact without rashes or lesions. Appropriate color for ethnicity. Nailbeds pink with no cyanosis or clubbing. PSYCHIATRIC: Appropriate mood and affect. NEUROLOGICAL : No neurological deficits Objective Labs 05/23/25 05:00 05/23/25 05:00 Labs: Laboratory Results - last 24 hr 05/23/25 05:00 WBC 14.0 H RBC 2.58 L Hgb 7.3 L Hct 23.9 L MCV 93 MCH 28.3 MCHC 30.5 L RDW Std Deviation 61.0 H Plt Count 378 D Neut % (Auto) 87 H Lymph % (Auto) 11 Daniels % (Auto) 1 Eos % (Auto) 0 Baso % (Auto) 0 Neut # (Auto) 12.1 H Lymph # (Auto) 1.5 Daniels # (Auto) 0.2 Eos # (Auto) 0.0 Baso # (Auto) 0.0 Immature Gran # (Auto) 0.13 H Absolute Nucleated RBC 0.00 Immature Gran % 1 H Nucleated RBC % 0 Sodium 140 Potassium 4.8 D Chloride 101 Carbon Dioxide 26.6 Anion Gap 12 BUN 71 H Creatinine 3.0 H Estim Creat Clear Calc 40.9 L eGFR 22 L BUN/Creatinine Ratio 24 H Glucose 240 H D Calculated Osmolality 308 H Calcium 9.1 Corrected Calcium 9.5 Phosphorus 5.0 Magnesium 2.3 Total Bilirubin 0.4 AST 15 ALT 8 L Alkaline Phosphatase 178 H D Total Protein 6.6 Albumin 3.5 Globulin 3.1 Albumin/Globulin Ratio 1.1 L ABG Interpretation ABG results: 04/18/25 04/18/25 04/18/25 04:40 06:27 10:30 ABG pH 7.28 L 7.33 L 7.36 ABG pCO2 72 H* 67 H 61 H ABG pO2 132 H 60 L D 60 L ABG HCO3 34 H 35 H 34 H ABG O2 Saturation 100 H 93 93 ABG Base Excess 6 H 7 H 8 H 04/19/25 05/10/25 08:53 07:40 ABG pH 7.47 H D 7.52 H ABG pCO2 45 D 40 ABG pO2 66 L 60 L ABG HCO3 33 H 32 H ABG O2 Saturation 96 94 ABG Base Excess 8 H 8 H Quality Measures Quality Measures none (None, patient is Pentec[employer]al and has a bleeding sacral wound) Advance care planning discussed with:: patient Assessment & Plan Assessment Current Active Medications: Generic Name Dose Route Start Last Admin Trade Name Freq PRN Reason Stop Dose Admin Hydrocodone Bitart/Acetaminophen 1 tab 05/18/25 19:07 05/23/25 04:56 Hydrocodone/Apap 7.5/325 Tablet PO 05/23/25 19:06 1 tab Q6HR PRN Administration PAIN SCALE 4-10(Mod-Sev Acetylcysteine 3 ml 05/10/25 15:00 05/23/25 06:47 Acetylcysteine Rt Gloria 10% 4 Ml Nebu INH 06/09/25 14:59 3 ml Q8HRRT KOURTNEY Administration Albuterol/Ipratropium 3 ml 05/10/25 15:00 05/23/25 06:47 Albuterol/Ipratropium (Duoneb) Rt Gloria 3 Ml Nebu INH 06/09/25 14:59 3 ml Q8HRRT KOURTNEY Administration Amiodarone HCl 200 mg 05/12/25 13:45 05/23/25 08:34 Amiodarone Hcl 200 Mg Tablet GT 06/11/25 13:44 200 mg QDAY KOURTNEY Administration Chlorhexidine Gluconate 15 ml 05/22/25 13:30 05/23/25 08:30 Chlorhexidine Mouthwash 0.12% Udc 15 Ml PO 06/21/25 13:29 15 ml DAILY KOURTNEY Administration Dextrose 25 ml 05/12/25 13:47 Dextrose 50%-Water Inj 50 Ml Syringe IV 06/11/25 13:46 Q15MIN PRN BG 50-70 responsive npo pt Dextrose 50 ml 05/12/25 13:48 Dextrose 50%-Water Inj 50 Ml Syringe IV 06/11/25 13:47 Q15MIN PRN BG <50 OR BG <70 & pt unresponsive Gabapentin 100 mg 05/20/25 14:30 05/23/25 05:40 Gabapentin 100 Mg Capsule GT 06/19/25 14:29 100 mg TID KOURTNEY Administration Glucagon 1 mg 05/12/25 13:49 Glucagon Inj 1 Mg Vial IM 06/11/25 13:48 Q15MIN PRN BG <70, and no IV access Heparin Sodium (Porcine) 2,700 unit 05/21/25 16:12 05/22/25 11:57 Heparin Sod Inj 1000 Unit/Ml Vial 10 Ml INDWELLCAT 06/04/25 16:11 2,700 unit X1 PRN Administration DIALYSIS Albumin Human 25 gm in 100 mls @ 100 mls/min 05/21/25 16:13 Albuminar-25 Ivpb IV 05/24/25 16:12 PRN PRN DIALYSIS Insulin Glargine 38 unit 05/13/25 09:00 05/23/25 08:34 Insulin Glargine (Lantus) 5 Unit/0.05 Ml (Per 5 Units) SC 06/12/25 08:59 38 unit QDAY KOURTNEY Administration Insulin Human Lispro 0 unit 05/12/25 18:00 05/23/25 05:39 Insulin Lispro (Admelog) 1 Unit/0.01 Ml Unit SC 06/11/25 17:59 3 unit Q6HR KOURTNEY Administration Protocol Lansoprazole 30 mg 05/05/25 09:00 05/23/25 08:30 Lansoprazole 30 Mg Tab.[email or web address].Dr DUARTE 06/04/25 08:59 30 mg QDAY KOURTNEY Administration Methylprednisolone Sodium Succinate 40 mg 05/22/25 21:00 05/23/25 08:30 Methylprednisolone Sod Succ 40 Mg Vial IVP 05/29/25 20:59 40 mg BID KOURTNEY Administration Pharmacy Consult 1 each 05/14/25 08:22 Pharmacy Renal Dose Adjustment 1 Ea XX 06/13/25 08:21 PRN PRN CONSULT Sennosides 2 tab 05/02/25 09:00 05/23/25 08:30 Senna Tablet GT 06/01/25 08:59 2 tab QDAY KOURTNEY Administration Protocol Sevelamer Carbonate 0.8 gm 05/20/25 09:45 05/22/25 17:54 Sevelamer Carbonate 0.8 Gm Packet (Non-Formulary) GT 06/19/25 09:44 0.8 gm TIDWM KOURTNEY Administration Sodium Hypochlorite 473 ml 05/06/25 21:00 05/23/25 08:35 Sod Hypochlorite 1/4 Str 473 Ml Btl IRRIG 06/05/25 20:59 1 applicatio BID KOURTNEY Administration Plan In summary, Mr. Ortega is a 64-year-old male with past medical history of DM2, hypertension, A-fib, and Jehova's witness was admitted to the ICU on 02/27/2025 for shock and acute on chronic hypoxic respiratory failure. He is s/p laparoscopic J-tube placement from [facility]. #Acute kidney injury-- seems to be in Ischemic ATN #Fluid overload Patient was admitted with acute kidney injury likely ischemic acute tubular necrosis, received temporary hemodialysis catheter placed 04/24, receiving dialysis had 1 L removed on 04/24, 2 L on 04/25, 2.14 on 04/26, 2.1 L on 04/29; temporary dialysis catheter discontinued on 05/06. Dialysis done 05/22 with continued improvement in BUN 71, Cr 3.0 Plan: -Hold dialysis today -If patient needs to stay next week, continue MWF dialysis schedule -Monitor I&O's -Avoid nephrotoxic agents -Renally dose medication #Acute on Chronic Respiratory Failure secondary to mucous plug #Healthcare-Associated Pneumonia #Leukocytosis #Paroxysmal atrial fibrillation #Right diastolic CHF #Decubitus ulcer #Chronic back pain #Jejunostomy tube #Normocytic normochromic anemia #Acute on Chronic Hypoxic Hypercapnic Respiratory Failure #Obesity hypoventilation syndrome and obstructive sleep apnea #Tracheostomy #Hx of A-fib #Right internal jugular venous thrombosis #Right arm swelling #Morbid obesity #DM2 Above handled by primary hospitalist team Patient seen and care discussed with my attending physician, Dr. Teressa Fox MD PGY-1 Internal Medicine Attending Provider Attestation/Addendum Patient seen and examined with resident physician Dr. Fox. Note reviewed, agree with findings and recommendations. BUN/creatinine elevated again- ?? going into ATN. Edema ++ Labs 3 times weekly with pediatric tubes due to his Pentecostal status. Had a long conversation with the patient-agreed for temporary dialysis. Unfortunately IR cannot do permanent catheter -- agreed to do temporary catheter due to his BMI. Dialysis catheter placed by Dr. Galicia in the right IJ. Patient received dialysis session on Tuesday. Next dialysis session scheduled for Tuesday. Spoke to Dr. Mendoza He will need LTAC placement with dialysis.
--- NOTE | 2025-05-23 10:25 | ESPR_ITS ---
<Statement entered by Apolonia Ruth MD - 05/24/25 08:16> TOTAL TIME: 45MINUTES ON DIRECT MEDICAL CARE, MANAGEMENT - COORDINATION AND COUNSELING > 50% OF TOTAL TIME I saw and evaluated the patient. I reviewed the resident?s note and agree with findings and plan as documented in the resident?s note. Remains improved w/ trach cuff down stress the impt of brushing teeth+usualy trach oral hygiene with staff appraiser (very impt!) can switch solumedrol to prednisone 60mg x 3d; 40mg x 5d will need repeat bronch through the trach to re-evaluate in 10-14d TECSA pts new CC is inability to sleep due to MV apnea alarms. We monitored him perform a breath hold for 40s on 3 consecutive efforts - clinically very stable therefore, adjusted the apnea alarm to 50s - should reduce the incidence of alarms given usual cycle length for CSA is 40-45s Documentation for date of: 05/23/25 Subjective Subjective Interval history: Mr. Ortega is a 64-year-old male with past medical history of chronic respiratory failure status post tracheostomy 03/14/2025 at [facility], morbid obesity status post Diego-en-Y gastric bypass status post J-tube placement at [facility] [place], type 2 diabetes mellitus, hypertension,, atrial fibrillation, chronic heart failure with preserved ejection fraction, grade 3 diastolic dysfunction, right heart failure, BASIA/OHS, KENIA on CKD currently on dialysis, anemia and chronic decubitus unstageable sacral ulcer status postdebridement 04/29/2025 who is currently admitted to the hospital for KENIA/ATN progressing to ESRD, acute on chronic hypoxic and hypercapnic respiratory failure, recurrent pneumonia. Patient has had a long hospital course, was admitted to [facility] recently and February 2025, patient was intubated due to acute hypercapnic and hypoxic respiratory failure with the progression of hospital course patient required multiple intubations for worsening hypercapnic encephalopathy and respiratory failure. Patient was eventually trached on 03/14/25 by general surgery, tracheostomy done with size 8 extra long cuffed tracheostomy. Further patient was downgraded to telemetry for continued management and possible PEG tube placement, however patient could not have the tube placed by gastroenterology as patient had a very small gastric pouch in setting of Diego-en-Y gastrojejunostomy, was eventually transferred to [facility] for J-tube placement and was transferred back to [facility] on 04/13/2025 for management. For the last month patient had surgical debridement done by general surgeon for unstageable sacral wound, eventually developed fluid overload status for which temporary dialysis catheter was placed receiving 4 sessions of hemodialysis after which patient was weaned off of dialysis and temporary dialysis catheter was discontinued on 05/06. Patient was upgraded to ICU on 05/09/2025 due to symptomatic bradycardia, cardiology was consulted. During the ICU course patient was found to have thick mucus on bronchoscopy done by pulmonology/critical care, patient was noted to have a large mucous plug in left mainstem which was suctioned out. Patient was eventually downgraded back to telemetry on 05/11/2025. Since downgrade patient has developed worsening renal function with fluid overload status requiring temporary hemodialysis catheter placement per nephrology. 05/21/2025: Pulmonology consulted today for acute respiratory distress. Possible tracheostomy misalignment, patient earlier this morning was having difficulty breathing. Patient seen at bedside, transition to pressure support earlier this morning and he continues to have difficulty breathing with increased work of breathing, patient's tracheostomy site assessed during assessment copious amount of thick sputum was noted, patient has been getting chest physiotherapy, Mucomyst and scheduled suctioning per nursing. However once tracheostomy cuff was deflated patient's respiratory distress improved, patient will likely need bronchoscopy to assess tracheostomy site for any granulation tissue or excessive mucus secretion/plug. 05/22/2025: Patient had bronchoscopy done today at bedside postdialysis. See bronchoscopy report for details, granulation tissue noted below trach, trach in good position, area below vocal cords has no edema, granulation tissue. Low suspicion of infection, no exudates seen. Patient will benefit from IV methylprednisolone 40 milligram twice daily, Keep tracheostomy cuff deflated for now, continue pressure support as primary setting. We can repeat bronchoscopy in 7 to 10 days to assess site again. Patient also does have underlying treatment emergent central sleep apnea, we will try to start patient on SIMV- pressure support, backup rate per minute, tidal volume 500. Otherwise if patient continues to have apnea at night, we can change apnea alarm to greater than 35 seconds. Will continue to monitor. 05/23/2025: No active distress noted today, patient was on SIMV-PRVC overnight, reported that the apnea alarm kept waking him up, we will change apnea alarm parameters to 45 seconds, patient has treatment emergent central sleep apnea. Will continue pressure support for day, SIMV/PRVC at night. Continue methylprednisolone 40 mg IV twice daily. Exam Vital Signs Temp Pulse Resp BP Pulse Ox O2 Del Method O2 Flow Rate 97.8 F 90 17 100/66 96 Mechanical Ventilation 65 05/23/25 08:00 05/23/25 08:34 05/23/25 08:00 05/23/25 08:34 05/23/25 08:00 05/23/25 08:00 05/23/25 08:00 FiO2 50 05/23/25 08:00 Narrative Exam General: Awake. obese. Tracheostomy tube insitu on pressure support HEENT: Normocephalic, atraumatic, mucous membranes moist. Right IJ hemodialysis catheter noted. Heart: Irregular rate and rhythm, no murmurs. Lungs: Clear to auscultation with no wheezing or crackles. But noted decreased breath sounds bilaterally in view of body habitus. Abdomen: Soft, nondistended, nontender, positive bowel sounds. ?No guarding or rebound tenderness. Neurologic: Alert and oriented x3, no gross neurological deficit, and patient able to move all 4 extremities. Extremities: No edema. Skin: Large sacral ulcer in the gluteal region, Decubitus Grade III/IV Objective Labs 05/23/25 05:00 05/23/25 05:00 Labs: Laboratory Results - last 24 hr 05/23/25 05:00 WBC 14.0 H RBC 2.58 L Hgb 7.3 L Hct 23.9 L MCV 93 MCH 28.3 MCHC 30.5 L RDW Std Deviation 61.0 H Plt Count 378 D Neut % (Auto) 87 H Lymph % (Auto) 11 [place]dwell % (Auto) 1 Eos % (Auto) 0 Baso % (Auto) 0 Neut # (Auto) 12.1 H Lymph # (Auto) 1.5 Caldwell # (Auto) 0.2 Eos # (Auto) 0.0 Baso # (Auto) 0.0 Immature Gran # (Auto) 0.13 H Absolute Nucleated RBC 0.00 Immature Gran % 1 H Nucleated RBC % 0 Sodium 140 Potassium 4.8 D Chloride 101 Carbon Dioxide 26.6 Anion Gap 12 BUN 71 H Creatinine 3.0 H Estim Creat Clear Calc 40.9 L eGFR 22 L BUN/Creatinine Ratio 24 H Glucose 240 H D Calculated Osmolality 308 H Calcium 9.1 Corrected Calcium 9.5 Phosphorus 5.0 Magnesium 2.3 Total Bilirubin 0.4 AST 15 ALT 8 L Alkaline Phosphatase 178 H D Total Protein 6.6 Albumin 3.5 Globulin 3.1 Albumin/Globulin Ratio 1.1 L ABG Interpretation ABG results: 04/18/25 04/18/25 04/18/25 04:40 06:27 10:30 ABG pH 7.28 L 7.33 L 7.36 ABG pCO2 72 H* 67 H 61 H ABG pO2 132 H 60 L D 60 L ABG HCO3 34 H 35 H 34 H ABG O2 Saturation 100 H 93 93 ABG Base Excess 6 H 7 H 8 H 04/19/25 05/10/25 08:53 07:40 ABG pH 7.47 H D 7.52 H ABG pCO2 45 D 40 ABG pO2 66 L 60 L ABG HCO3 33 H 32 H ABG O2 Saturation 96 94 ABG Base Excess 8 H 8 H Quality Measures Quality Measures none (None, 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) Advance care planning discussed with:: patient Assessment & Plan Assessment Current Active Medications: Generic Name Dose Route Start Last Admin Trade Name Freq PRN Reason Stop Dose Admin Hydrocodone Bitart/Acetaminophen 1 tab 05/18/25 19:07 05/23/25 04:56 Hydrocodone/Apap 7.5/325 Tablet PO 05/23/25 19:06 1 tab Q6HR PRN Administration PAIN SCALE 4-10(Mod-Sev Acetylcysteine 3 ml 05/10/25 15:00 05/23/25 06:47 Acetylcysteine Rt Gloria 10% 4 Ml Nebu INH 06/09/25 14:59 3 ml Q8HRRT KOURTNEY Administration Albuterol/Ipratropium 3 ml 05/10/25 15:00 05/23/25 06:47 Albuterol/Ipratropium (Duoneb) Rt Gloria 3 Ml Nebu INH 06/09/25 14:59 3 ml Q8HRRT KOURTNEY Administration Amiodarone HCl 200 mg 05/12/25 13:45 05/23/25 08:34 Amiodarone Hcl 200 Mg Tablet GT 06/11/25 13:44 200 mg QDAY KOURTNEY Administration Chlorhexidine Gluconate 15 ml 05/22/25 13:30 05/23/25 08:30 Chlorhexidine Mouthwash 0.12% Udc 15 Ml PO 06/21/25 13:29 15 ml DAILY KOURTNEY Administration Dextrose 25 ml 05/12/25 13:47 Dextrose 50%-Water Inj 50 Ml Syringe IV 06/11/25 13:46 Q15MIN PRN BG 50-70 responsive npo pt Dextrose 50 ml 05/12/25 13:48 Dextrose 50%-Water Inj 50 Ml Syringe IV 06/11/25 13:47 Q15MIN PRN BG <50 OR BG <70 & pt unresponsive Gabapentin 100 mg 05/20/25 14:30 05/23/25 05:40 Gabapentin 100 Mg Capsule GT 06/19/25 14:29 100 mg TID KOURTNEY Administration Glucagon 1 mg 05/12/25 13:49 Glucagon Inj 1 Mg Vial IM 06/11/25 13:48 Q15MIN PRN BG <70, and no IV access Heparin Sodium (Porcine) 2,700 unit 05/21/25 16:12 05/22/25 11:57 Heparin Sod Inj 1000 Unit/Ml Vial 10 Ml INDWELLCAT 06/04/25 16:11 2,700 unit X1 PRN Administration DIALYSIS Albumin Human 25 gm in 100 mls @ 100 mls/min 05/21/25 16:13 Albuminar-25 Ivpb IV 05/24/25 16:12 PRN PRN DIALYSIS Insulin Glargine 38 unit 05/13/25 09:00 05/23/25 08:34 Insulin Glargine (Lantus) 5 Unit/0.05 Ml (Per 5 Units) SC 06/12/25 08:59 38 unit QDAY KOURTNEY Administration Insulin Human Lispro 0 unit 05/12/25 18:00 05/23/25 05:39 Insulin Lispro (Admelog) 1 Unit/0.01 Ml Unit SC 06/11/25 17:59 3 unit Q6HR KOURTNEY Administration Protocol Lansoprazole 30 mg 05/05/25 09:00 05/23/25 08:30 Lansoprazole 30 Mg Tab.Rap.Dr DUARTE 06/04/25 08:59 30 mg QDAY KOURTNEY Administration Methylprednisolone Sodium Succinate 40 mg 05/22/25 21:00 05/23/25 08:30 Methylprednisolone Sod Succ 40 Mg Vial IVP 05/29/25 20:59 40 mg BID KOURTNEY Administration Pharmacy Consult 1 each 05/14/25 08:22 Pharmacy Renal Dose Adjustment 1 Ea XX 06/13/25 08:21 PRN PRN CONSULT Sennosides 2 tab 05/02/25 09:00 05/23/25 08:30 Senna Tablet GT 06/01/25 08:59 2 tab QDAY KOURTNEY Administration Protocol Sevelamer Carbonate 0.8 gm 05/20/25 09:45 05/22/25 17:54 Sevelamer Carbonate 0.8 Gm Packet (Non-Formulary) GT 06/19/25 09:44 0.8 gm TIDWM KOURTNEY Administration Sodium Hypochlorite 473 ml 05/06/25 21:00 05/23/25 08:35 Sod Hypochlorite / Str 473 Ml Btl IRRIG 06/05/25 20:59 1 applicatio BID KOURTNEY Administration Plan Summary: Mr. Ortega is a 64-year-old male with past medical history of chronic respiratory failure status post tracheostomy 03/14/2025 at [facility], morbid obesity status post Diego-en-Y gastric bypass status post J-tube placement at [facility], type 2 diabetes mellitus, hypertension,, atrial fibrillation, congestive heart failure with preserved ejection fraction, grade 3 diastolic dysfunction, right heart failure, BASIA/OHS, KENIA on CKD currently on dialysis, anemia and chronic decubitus unstageable sacral ulcer status postdebridement 04/29/2025 who is currently admitted to the hospital for KENIA/ATN progressing to ESRD, acute on chronic hypoxic and hypercapnic respiratory failure, recurrent pneumonia. Pulmonology consulted today for tracheostomy assessment and respiratory distress. #Acute respiratory distress, resolving #Moderate granulation tissue and tracheal narrowing below tracheostomy tube #Status post bronchoscopy 05/22/2025 #Chronic respiratory failure status post trach #Tracheostomy malpositioning, mucous plug ruled out -Pulmonology consulted today for acute respiratory distress, patient earlier this morning was having difficulty breathing, transitioned to pressure support earlier this morning. -Continues to have difficulty breathing with increased work of breathing -Tracheostomy site assessed during assessment copious amount of thick sputum was noted -Patient had a bronch done in April, was noted to have large mucous plug in the left mainstem bronchus -Status post bronchoscopy, granulation tissue noted below trach, trach in good position, area below vocal cords has no edema, moderate granulation tissue. Low suspicion of infection, no exudates/mucous plug seen. Plan: - Continue IV methylprednisolone 40 mg twice daily for 5 to 7 days - Consider repeating bronchoscopy in 7 to 10 days to assess site again. - Continue pressure support, keep tracheostomy cuff deflated, pressure support during day SIMV PRVC at night. - Abrasive brushing with Peridex and suctioning of mouth to reduce the risk of infection - Continue chest physiotherapy with mechanical percussive every 8 hours - Continue breathing treatment and Mucomyst - Continue with suctioning as needed #Treatment emergent central sleep apnea (TECSA) Patient reported that his ventilator wakes him up at night, on review of log apnea alarm noted. Patient has history of BASIA, status post trach likely has treatment emergent central sleep apnea. Plan: - Vent mode: PRVC SIMV, titrate O2 to maintain SPO2 at 92, rate 5, tidal volume 500, PEEP 8, pressure support 10 - Patient tolerated PRVC SIMV at night, continue the same mode at night - Changed apnea alarm setting to 45 seconds #Morbid obesity status post Diego-en-Y and Y gastric bypass status post J-tube placement #Type 2 diabetes mellitus #Hypertension #Atrial fibrillation #Congestive heart failure with preserved ejection fraction #Grade 3 diastolic dysfunction #Right heart failure #Obstructive sleep apnea/obesity hypoventilation syndrome #KENIA/ATN progressing to ESRD status post temporary dialysis catheter placement 05/21/2025 #Normocytic normochromic anemia #Unstageable sacral ulcer status postdebridement 04/29/2025 - Management as per primary team Case discussed with Attending Dr. Ruth. Elizabeth Lamas MD Internal medicine resident PGY 2 Disclaimer: This note was dictated by speech recognition. Minor errors in clay dry press operator may be present due to voice recognition software.
--- NOTE | 2025-05-23 11:24 | PC.SS ---
SS was informed by Dr. Tobar, Physician Resident pt is medically ready for d/c to LT[facility]. SS has spoken to Jose from [facility] and they are still accepting. SS has sent updated inquiry to [facility] and Jose using [facility]. SS has informed [employer]. SS received call from [facility] who explained they have declined due to pt being new vent, trach, and requiring hemo dialysis. [facility] has declinced on [facility].
--- NOTE | 2025-05-23 15:14 | PD.RESDS ---
Planned Discharge Date 05/23/25 DS: Providers Provider Date of admission: 04/12/25 22:48 Primary care physician: Physician No Primary/Family Admitting Provider: Tres Magana MD Attending Provider on Admission: Pavel Mendoza MD Consults: 04/12/25 23:33 Referral Registered Dietitian Routine Comment: tube feeds Referral Wound Care Routine Comment: 04/12/25 23:38 Referral Respiratory Therapy Routine Comment: trach and vent 04/13/25 08:46 Referral Physical Therapy Routine Comment: Physician Instructions: 04/14/25 10:32 Referral Pharmacy Routine Comment: Reason for Consult: Adjust Dosing per weight 04/15/25 16:49 Consult to General Surgery Routine Comment: Sacral Ulcer Consulting Provider: Negrita Negron 04/15/25 16:59 Referral Speech Therapy Stat Comment: Passy Mendon Valve Test 04/19/25 13:54 Consult to Nephrology Routine Comment: KENIA Consulting Provider: Alejandra Gannon 05/09/25 11:14 Consult to Cardiology Stat Comment: Consulting Provider: Kobe Barahona 05/21/25 11:51 Consult to Door Attendant Stat Comment: trach adjustment Consulting Provider: Apolonia Ruth Attending Provider on DC: RESIDENT Kinsey Discharging Provider: RESIDENT Kinsey DS: Diagnosis Problem List Completed Was Problem List Reviewed/Reconciled?: Yes Hospital Course Hospital Course Hospital course: Summary: Mr. Ortega is a 64-year-old male with past medical history of chronic respiratory failure status post tracheostomy 03/14/2025 at [facility], morbid obesity status post Diego-en-Y gastric bypass status post J-tube placement at [facility], type 2 diabetes mellitus, hypertension, atrial fibrillation, HFpEF, grade 3 diastolic dysfunction, right heart failure, BASIA/OHS, KENIA on CKD currently on dialysis, anemia and chronic decubitus unstageable sacral ulcer status postdebridement 04/29/2025 who was initially for septic shock, requiring pressors. He has had a long protracted hospital course as above but is currently being treated for KENIA/ATN progressing to ESRD on hemodialysis MWF, acute on chronic hypoxic and hypercapnic respiratory failure, and recurrent pneumonia. ED Course: Initially patient was hypoxic, hypotensive unresponsive to IVF, febrile, patient was intubated in the ED. Initial labs were relevant for leukocytosis (16.5), ABG (pH 7.27, PCO2 of 57, and pO2 of 101), hyperkalemia (5.5), KENIA (creatinine 2.1), lactic acidosis (5.5 down trended to 3.6), hyperbilirubinemia (1.3, transaminitis (AST 129), elevated BNP (368), elevated procalcitonin (3.14). Initial imaging included chest x-ray which showed some bilateral opacities which seems like pulmonary edema versus pneumonia and head CT was negative for any acute hemorrhage, mass effect, or midline shift. Reason for hospitalization: Patient has had a long hospital course, was admitted to [facility] recently and February 2025, initially admitted to ICU for sepsis and septic shock. Patient was intubated due to acute hypercapnic and hypoxic respiratory failure with the progression of hospital course patient required multiple intubations for worsening hypercapnic encephalopathy and respiratory failure. Patient was eventually trached on 03/14/25 by general surgery, tracheostomy done with size 8 extra long cuffed tracheostomy. Heavy Mobile Equipment Repairer Dr. Doty followed the patient for PEG tube placement and concern for GI bleed, however patient could not have the tube placed by gastroenterology as patient had a very small gastric pouch in setting of Diego-en-Y gastrojejunostomy, was eventually transferred to [facility] for J-tube placement and was transferred back to [facility] on 04/13/2025 for management. Hospital course was complicated by large decubitus sacral ulcer, which started bleeding profusely with patient being on anticoagulation, general surgeon Dr. Ca followed the patient. Excisional debridement of sacral decubitus ulcer and placement of wound VAC was done on 04/29/2025. Since patient is a Jehovah's witness, concern for GI bleed as well as excessive bleeding from wound, anticoagulation was discontinued, risk and benefits of anticoagulation excessive bleeding versus stroke were discussed with the patient. Patient had multiple episodes of hospital-acquired/ventilator associated pneumonia and was treated with antibiotics per microbiology, most recent sputum cultures grew Pseudomonas aeruginosa from bronchial washings sensitive to Levaquin, previous sputum cultures grew Enterobacter which were treated with appropriate antibiotics at that time. The patient's blood cultures have stayed negative to date on repeated evaluations. Patient was upgraded to ICU again on 05/09/2025 for to symptomatic bradycardia, cardiology was consulted, rhythm converted to A-fib RVR heart rate in the 150s and received electrical cardioversion. Cardiology was also consulted for HFpEF. Bronchoscopy was done on 05/09/2025 due to significant left lower lobe mucous plugging, which was removed. Throughout course, patient developed acute kidney injury, patient was started on hemodialysis with temporary dialysis catheter, unable to pass tunneled dialysis catheter, complicated by right intrajugular vein DVT, initially patient was able to wean off of renal replacement therapy, nephrology followed the patient, but eventually patient required being placed on permanent dialysis. Currently dialysis schedule Tuesday, via temporary dialysis cath. Patient was eventually downgraded back to telemetry on 05/11/2025. Patient continues to stay on tracheostomy, was intermittently on blow-by via trach collar, but continued acute hypoxic respiratory failure requiring mechanical ventilation, patient started having difficulty breathing on 05/21/2025, wind turbine installer Dr. Ruth saw the patient, recommended bronchoscopy to evaluate for tracheostomy misalignment and/or obstruction, bronchoscopy was done which showed subglottic anatomy with minimal nonobstructive granulomatous changes at tracheostomy site, below the tracheostomy tube there is moderate granulation and narrowing in the trachea, strict oral care was prescribed. Patient is currently vitally stable, off pressors, stays on tracheostomy on spontaneous mode with apnea and pressure support backup, feels comfortable following bronchoscopy, able to voice his words, afebrile, completed antibiotic treatment for HCAP, able to take medications via G-tube, temporary dialysis catheter in place, scheduled outpatient hemodialysis //. The patient has been medically stable for the past 48 hours and is cleared for discharge from internal medicine standpoint. Discharge Recommendations: -Please take all medication as prescribed -Please follow up with your primary care provider within one week of discharge -Please follow up with your truck hop and your inspection machine tender, Dr. Gannon, -If your symptoms worsen,please seek immediate medical attention and return to your nearest emergency room -If you do not have a primary care provider, you may follow up at the [facility] at [address] [place] [address] [address], [place] [address], Wound care: Sacral Stage 4 pressure injury: Cleanse with NS, pat dry, moistened rolled gauze with NS and pack wound. Cover with dry fluffs, abd pads and secure with medipore tape. Change daily and PRN for soiling Hospital Diagnoses: #ATN progressed to ESRD, on hemodialysis #Acute on chronic hypoxic respiratory failure #Acute on Chronic Respiratory Failure secondary to mucous plug #Healthcare-Associated Pneumonia #Paroxysmal atrial fibrillation #HFpEF 65% with diastolic dysfunction, grade 3 #Right heart failure #Pulmonary hypertension #BASIA/OHS #Moderate to severe a AOV calcification with no stenosis #Decubitus ulcer status post excisional debridement of sacral decubitus ulcer #GI bleed #S/p Jejunostomy tube #Abdominal abscess, resolved #Normocytic normochromic anemia #Right internal jugular venous thrombosis, resolved #Morbid obesity #DM2 Disposition: safe disposition to LTAC Senior resident attestation: Patient evaluated and examined at the bedside, plan of care discussed with rest of the team including my attending physician, except as noted. [place] PGY3 Time Spent with Patient Time attestation: Total time spent providing and/or coordinating discharge services: at least 30 minutes of care coordination Time spent: Greater than 30 minutes Exam Vital Signs Temp Pulse Resp BP Pulse Ox O2 Del Method O2 Flow Rate 97.6 F 123 H 24 H 113/76 94 L Mechanical Ventilation 65 05/23/25 12:00 05/23/25 12:00 05/23/25 12:00 05/23/25 12:00 05/23/25 12:00 05/23/25 12:00 05/23/25 12:00 FiO2 40 05/23/25 12:00 Narrative Exam Physical Exam: Constitutional: Alert, oriented x 3 and no acute distress. Nods and expresses self to questions, writes on white board for communication. Elderly male, morbidly obese. HEENT: Vision grossly intact. Patent nares. Trachea midline. Tracheostomy tube in situ, exit site clean. Mouth dry. Respiratory: Chest normal on inspection and decreased air entry in all lung sims, transmitted sounds and congestion on anterior chest wall, middle and upper lobes. Cardiovascular: S1 and S2 audible, RRR. No murmurs carotid bruit. No gross JVD. Abdominal: Soft, obese and non tender to palpation in all quadrants. BS +. Jejunostomy tube in situ, exit site clean Genitourinary: No bladder tenderness, no flank pain. Normal to palpation Musculoskeletal: Extremities tone within normal limits. Mild edema in right upper extremity, improved upon placing on pillow. No lower extremity edema bilaterally. Neurological: CN II - XII grossly intact. Extremity motor and sensation grossly intact. Extremities: 1+ pitting lower extremity edema bilaterally. Skin: Warm, dry and intact. Large sacral decubitus ulcer, necrotic tissue noted. No purulent drainage noted. Cleanly packed with dressings. Psychiatric: Patient has good affect, is cooperative Discharge Plan Plan Patient Disposition: Xfer Manager Immunology Acute Patient condition on transfer: Stable Care Plan Goals: Instructions: -Please take all medication as prescribed -Please follow up with your primary care provider within one week of discharge -Please follow up with your truck hop and your inspection machine tender, Dr. Gannon, -If your symptoms worsen,please seek immediate medical attention and return to your nearest emergency room -If you do not have a primary care provider, you [facility] [address], [place] [address], Wound care: Sacral Stage 4 pressure injury: Cleanse with NS, pat dry, moistened rolled gauze with NS and pack wound. Cover with dry fluffs, abd pads and secure with medipore tape. Change daily and PRN for soiling Prescriptions/Referrals Prescriptions/Med Rec: New Mounjaro 2.5 mg/0.5 mL pen injector 2.5 mg subcut QWEEK Qty: 2 0RF Rx Instructions: for 4 weeks acetaminophen 325 mg Tablet 650 mg PO Q6HR PRN (Reason: pain 1-3 OR Fever >100.4) 30 Days Qty: 90 0RF gabapentin 100 mg Capsule 100 mg G-tube TID 30 Days Qty: 90 0RF sevelamer carbonate 0.8 gram Powder In Packet 0.8 g G-tube TIDWM 30 Days Qty: 90 0RF Continued amiodarone 200 mg Tablet 200 mg NG QDAY Qty: 0 0RF ascorbic acid (vitamin C) [Vitamin C] 250 mg Tablet 500 mg NG BID Qty: 0 0RF insulin glargine [Lantus U-100 Insulin] 100 unit/mL Solution 38 unit SCi QDAY Qty: 0 0RF hydrocodone-acetaminophen 5-325 mg Tablet 1 tab PO Q8HR PRN (Reason: Pain 4-7) Qty: 0 0RF sertraline 25 mg Tablet 25 mg PO HS Qty: 0 0RF insulin lispro 100 unit/mL Solution 0 unit SCi Q6HR Qty: 0 0RF lansoprazole 30 mg Tablet,Disintegrat, Delay Rel 30 mg NG QDAY Qty: 0 0RF zinc sulfate 50 mg zinc (220 mg) Capsule 220 mg NG QDAY Qty: 0 0RF blwbvuoz-uju-grifyln gluconate 12 mg iron/15 mL Liquid 15 ml NG QDAY Qty: 0 0RF Discontinued losartan 25 mg tablet 25 mg PO 1XD Patient Comments: TAKE 1 TABLET BY MOUTH EVERY DAY amlodipine 10 mg tablet 10 mg PO 1XD Patient Comments: TAKE 1 TABLET BY MOUTH EVERY DAY metoprolol succinate 100 mg tablet extended release 24 hr 100 mg PO 2XD Patient Comments: TAKE 1 TABLET BY MOUTH TWICE A DAY tramadol 50 mg tablet 50 mg PO 3XD Patient Comments: TAKE 2 TABLETS BY MOUTH 3 TIMES A DAY NEEDED metformin 1,000 mg tablet 1,000 mg PO 2XD Patient Comments: TAKE 1 TABLET BY MOUTH TWICE A DAY glipizide 10 mg tablet 10 mg PO 1XD Patient Comments: TAKE 1 TABLET BY MOUTH EVERY DAY gabapentin 600 mg tablet 600 mg PO 3XD Patient Comments: TAKE 1 TABLET BY MOUTH THREE TIMES A DAY amlodipine 5 mg Tablet 10 mg NG DAILY Qty: 0 0RF bumetanide 0.5 mg Tablet 2 mg PO QDAY Qty: 0 0RF bumetanide 0.25 mg/mL Solution 1 mg IVP QPM Qty: 0 0RF bumetanide 0.25 mg/mL Solution 2 mg IVP QPM Qty: 0 0RF metronidazole in NaCl (iso-os) 500 mg/100 mL Piggyback 500 mg IV Q8HR Qty: 0 0RF heparin (porcine) in 5 % dex 25,000 unit/250 mL(100 unit/mL) Parenteral Solution 25,000 unit IV .[id number] Qty: 0 0RF cyclobenzaprine 5 mg Tablet 5 mg PO TID PRN (Reason: Muscle Spasms) Qty: 0 0RF Referrals: No Primary/Family,Physician [Primary Care Provider] - Lenora John MD [Physician] - Alejandra Gannon MD [Physician] - Patient/Caregiver Discharge Instructions Education Materials: AFL/Afib, Acute Kidney Failure Dc, Heart Failure Print Language: Guinean Stand Alone Forms: Mikki Award Info., Patient Portal Info Letter Discharge Order Discharge Orders: Discharge (Routine); Ordered 05/24/25 Ordered By: Mery Esquivel Quality Discharge Quality Measures VTE prophylaxis Attmanaation Attestation 64-year-old with morbid obesity with subsequent obesity hypoventilation syndrome requiring tracheostomy and J-tube placement, hypertension, type 2 diabetes, atrial fibrillation, right internal jugular DVT and acute kidney injury secondary to ischemic ATN requiring multiple sessions of hemodialysis and sacral ulcers status post wound VAC currently being treated for acute on chronic hypoxic respiratory failure, ischemic ATN. Overnight, patient noted to have significant bleeding from decubitus ulcer and subsequently general surgery was consulted and heparin drip was discontinued. Talked with the patient regarding discontinuation of heparin drip and given that he has a right internal jugular DVT and atrial fibrillation and updated him that he is at risk for strokes and worsening disease progression however he is in agreement to stop the heparin drip for now. In addition, patient is also a Jehovah's witness and refusing blood product and I counseled him regarding need of blood product and risk of not getting it including worsening disease progression which can lead to cardiac arrest and however he understands and continues to refuse for which we will respect his decision. As of now, patient kidney function to obtain a TDC and initiate hemodialysis. Anemia is stable and patient appears to be stable on mechanical ventilation with stable setting. As of now, plan to continue hemodialysis and mechanical ventilation and reached out to bilingual social worker regarding finding LTAC. I reviewed above note and agree with findings and plans. I have also personally examined the patient with medicine team and went over assessment and plan with medical team including mba intern and resident physician.
--- NOTE | 2025-05-23 18:34 | ESPR_ITS ---
<Statement entered by Lenora John MD - 05/26/25 17:59> I personally examined the patient evaluated and telemetry patient is clinically stable remains in atrial fibrillation rate controlled well continue amiodarone for now. I reviewed the progress note all essential components of the resident physician PGY 2 Dr. Kirk Ahumada agree with the treatment plan recommendation as documentedThe patient is undergoing dialysis. Documentation for date of: 05/23/25 Subjective Subjective Interval history: Patient is seen and examined at bedside No acute overnight events. Vitals are stable and patient is still in A-fib with controlled ventricular rate Labs showing downtrending leukocytosis, BUN 71, creatinine 3 Received total of 2 sessions of HD Recommend to continue amiodarone 200 Mg through G-tube daily Exam Vital Signs Temp Pulse Resp BP Pulse Ox O2 Del Method O2 Flow Rate 97.6 F 112 H 14 112/69 96 Mechanical Ventilation 65 05/23/25 16:00 05/23/25 16:00 05/23/25 16:00 05/23/25 16:00 05/23/25 16:00 05/23/25 16:00 05/23/25 16:00 FiO2 50 05/23/25 16:00 Narrative Exam General: Awake. obese. Tracheostomy tube insitu on pressure support HEENT: Normocephalic, atraumatic, mucous membranes moist. Heart: IRRegular rate and rhythm, no murmurs. Lungs: Clear to auscultation with no wheezing or crackles. But noted decreased breath sounds bilaterally in view of body habitus. noted right IJV catheter on right side Abdomen: Soft, nondistended, nontender, positive bowel sounds. ?No guarding or rebound tenderness. Neurologic: Alert and oriented x3, no gross neurological deficit, and patient able to move all 4 extremities. Extremities: No edema. Skin: Large sacral ulcer in the gluteal region, Decubitus Grade III/IV Objective Labs 05/23/25 05:00 05/23/25 05:00 Labs: Laboratory Results - last 24 hr 05/23/25 05:00 WBC 14.0 H RBC 2.58 L Hgb 7.3 L Hct 23.9 L MCV 93 MCH 28.3 MCHC 30.5 L RDW Std Deviation 61.0 H Plt Count 378 D Neut % (Auto) 87 H Lymph % (Auto) 11 [place]isco[place] % (Auto) 1 Eos % (Auto) 0 Baso % (Auto) 0 Neut # (Auto) 12.1 H Lymph # (Auto) 1.5 [place] # (Auto) 0.2 Eos # (Auto) 0.0 Baso # (Auto) 0.0 Immature Gran # (Auto) 0.13 H Absolute Nucleated RBC 0.00 Immature Gran % 1 H Nucleated RBC % 0 Sodium 140 Potassium 4.8 D Chloride 101 Carbon Dioxide 26.6 Anion Gap 12 BUN 71 H Creatinine 3.0 H Estim Creat Clear Calc 40.9 L eGFR 22 L BUN/Creatinine Ratio 24 H Glucose 240 H D Calculated Osmolality 308 H Calcium 9.1 Corrected Calcium 9.5 Phosphorus 5.0 Magnesium 2.3 Total Bilirubin 0.4 AST 15 ALT 8 L Alkaline Phosphatase 178 H D Total Protein 6.6 Albumin 3.5 Globulin 3.1 Albumin/Globulin Ratio 1.1 L ABG Interpretation ABG results: 04/18/25 04/18/25 04/18/25 04:40 06:27 10:30 ABG pH 7.28 L 7.33 L 7.36 ABG pCO2 72 H* 67 H 61 H ABG pO2 132 H 60 L D 60 L ABG HCO3 34 H 35 H 34 H ABG O2 Saturation 100 H 93 93 ABG Base Excess 6 H 7 H 8 H 04/19/25 05/10/25 08:53 07:40 ABG pH 7.47 H D 7.52 H ABG pCO2 45 D 40 ABG pO2 66 L 60 L ABG HCO3 33 H 32 H ABG O2 Saturation 96 94 ABG Base Excess 8 H 8 H Quality Measures Quality Measures VTE prophylaxis Advance care planning discussed with:: patient Assessment & Plan Assessment Current Active Medications: Generic Name Dose Route Start Last Admin Trade Name Freq PRN Reason Stop Dose Admin Hydrocodone Bitart/Acetaminophen 1 tab 05/18/25 19:07 05/23/25 04:56 Hydrocodone/Apap 7.5/325 Tablet PO 05/23/25 19:06 1 tab Q6HR PRN Administration PAIN SCALE 4-10(Mod-Sev Acetylcysteine 3 ml 05/10/25 15:00 05/23/25 15:26 Acetylcysteine Rt Gloria 10% 4 Ml Nebu INH 06/09/25 14:59 3 ml Q8HRRT KOURTNEY Administration Albuterol/Ipratropium 3 ml 05/10/25 15:00 05/23/25 15:26 Albuterol/Ipratropium (Duoneb) Rt Gloria 3 Ml Nebu INH 06/09/25 14:59 3 ml Q8HRRT KOURTNEY Administration Amiodarone HCl 200 mg 05/12/25 13:45 05/23/25 08:34 Amiodarone Hcl 200 Mg Tablet GT 06/11/25 13:44 200 mg QDAY KOURTNEY Administration Chlorhexidine Gluconate 15 ml 05/22/25 13:30 05/23/25 08:30 Chlorhexidine Mouthwash 0.12% Udc 15 Ml PO 06/21/25 13:29 15 ml DAILY KOURTNEY Administration Dextrose 25 ml 05/12/25 13:47 Dextrose 50%-Water Inj 50 Ml Syringe IV 06/11/25 13:46 Q15MIN PRN BG 50-70 responsive npo pt Dextrose 50 ml 05/12/25 13:48 Dextrose 50%-Water Inj 50 Ml Syringe IV 06/11/25 13:47 Q15MIN PRN BG <50 OR BG <70 & pt unresponsive Gabapentin 100 mg 05/20/25 14:30 05/23/25 13:29 Gabapentin 100 Mg Capsule GT 06/19/25 14:29 100 mg TID KOURTNEY Administration Glucagon 1 mg 05/12/25 13:49 Glucagon Inj 1 Mg Vial IM 06/11/25 13:48 Q15MIN PRN BG <70, and no IV access Heparin Sodium (Porcine) 2,700 unit 05/21/25 16:12 05/22/25 11:57 Heparin Sod Inj 1000 Unit/Ml Vial 10 Ml INDWELLCAT 06/04/25 16:11 2,700 unit X1 PRN Administration DIALYSIS Albumin Human 25 gm in 100 mls @ 100 mls/min 05/21/25 16:13 Albuminar-25 Ivpb IV 05/24/25 16:12 PRN PRN DIALYSIS Insulin Glargine 38 unit 05/13/25 09:00 05/23/25 08:34 Insulin Glargine (Lantus) 5 Unit/0.05 Ml (Per 5 Units) SC 06/12/25 08:59 38 unit QDAY KOURTNEY Administration Insulin Human Lispro 0 unit 05/12/25 18:00 05/23/25 17:52 Insulin Lispro (Admelog) 1 Unit/0.01 Ml Unit SC 06/11/25 17:59 3 unit Q6HR KOURTNEY Administration Protocol Lansoprazole 30 mg 05/05/25 09:00 05/23/25 08:30 Lansoprazole 30 Mg Tab GT 06/04/25 08:59 30 mg QDAY KOURTNEY Administration Methylprednisolone Sodium Succinate 40 mg 05/22/25 21:00 05/23/25 08:30 Methylprednisolone Sod Succ 40 Mg Vial IVP 05/29/25 20:59 40 mg BID KOURTNEY Administration Pharmacy Consult 1 each 05/14/25 08:22 Pharmacy Renal Dose Adjustment 1 Ea XX 06/13/25 08:21 PRN PRN CONSULT Sennosides 2 tab 05/02/25 09:00 05/23/25 08:30 Senna Tablet GT 06/01/25 08:59 2 tab QDAY KOURTNEY Administration Protocol Sevelamer Carbonate 0.8 gm 05/20/25 09:45 05/23/25 17:10 Sevelamer Carbonate 0.8 Gm Packet (Non-Formulary) GT 06/19/25 09:44 0.8 gm TIDWM KOURTNEY Administration Sodium Hypochlorite 473 ml 05/06/25 21:00 05/23/25 08:35 Sod Hypochlorite 1/4 Str 473 Ml Btl IRRIG 06/05/25 20:59 1 applicatio BID KOURTNEY Administration Plan Mr. Ortega is a 64-year-old male, Mandaeism with a past medical history of hypertension, diabetes mellitus type 2, history of atrial fibrillation, CHF HFpEF 65%, grade 3 diastolic dysfunction, right heart failure, RSVP 47, moderate to severe ALB calsifications with no stenosis, status post tracheostomy, s/p [facility] at [facility], bariatric team, history of dyspahagia, extensive decubitus ulcers, CKD, history of anemia, history of Diego-en- Y gastric bypass, BASIA/OHS, and morbid obesity. Patient was upgraded to ICU for a third time with in acute respiratory respiratory failure secondary to mucous plug and shock, likely cardiogenic shock secondary to complete heart block requiring pressors and downgraded again # A-fib with RVR - s/p cardioversion ---> CVR # Bradycardia and questionable complete heart block, resolved - Patient was hypoxic and was transferred to the ICU on 05/09/2025. - Cardiology was consulted 05/09/2025 for significant bradycardia requiring external temporary transcutaneous pacing. - Plan was to place a temporary transvenous pacemaker if the patient continues to be bradycardic as he was 100% dependent on the transcutaneous pacing. - Bronchoscopy was performed which showed small mucous plug which was removed and patient rhythm was back to his atrial fibrillation with RVR. - Patient was on dopamine at that point of time. Patient blood pressure was on the lower side and was unstable and required cardioversion x 1. - Patient was on levophed and phenylephrine for a short period of time. - Patient is presently ventilator dependent and has a tracheostomy in place along with a jejunostomy. Plan - Recommend to continue telemetry monitoring - In view of ongoing sacral ulcer with recurrent infections, pacemaker placement cannot be done. But fortunately patient did not have any further episodes of bradycardia. So no need of pacemaker placement as of now - Recommended to continue amiodarone 200 Mg G-tube once daily - As patient had large decubitus ulcer and has tendency to bleed, anticoagulation is held for now # H/O CHF, HFpEF 65% #Diastolic dysfunction, grade 3 #Pulmonary hypertension #BASIA/OHS #Moderate to severe a AOV calcification with no stenosis #Moderate Right Pleural Effusion - Patient has a past medical history of right heart failure, Diastolic dysfunction, and HFpEF 65% likely in the setting of cardiomypoathy secondary to morbid obesity form BASIA/OHS. - [place] [facility] 03/19/2025: RAP 8, PAP 27, PCWP 7. - Echo (04/29/2025): Normal LV size and function. Estimated EF of 65%. Grade III Diastolic Dysfunction.Right ventricle is dilated with mild RV dysfunction RVSP 47mmHg. RAP 15mmHg.Severe biatrial dilation.Moderate to Severe AOV calcification with no stenosis <ild tricuspid regurgitation. No pericardial effusion. - Echo (05/14/2025) : Normal LV size and function. Estimated EF is 55 to 60%. Severely RA dilated right ventricle as well as right atrium. IVS flattening noted both in systole and diastole indicating both pressure and volume overload Plan -Recommended to hold diuresis for now in view of uptrending BUN and creatinine -Pt will be getting dialysis on 05/21/25 -K >4 and Mg >2 #Acute on Chronic Respiratory Failure secondary to mucus plug #Healthcare-Associated Pneumonia #Leukocytosis #Large Sacral Decubitus Ulcer s/p excisional debridement (05/02/2025) #CKD stage III #Jejunostomy #History of abdominal abscess s/p percutaneous drainage #Diabetes Mellitus Type 2 non insulin depedent #Normocytic Anemia Management of rest of the medical conditions as per primary team and other consultants. Thank you for the consult and allowing us to participate in the care of the patient. Cardiology will continue to follow. Patient plan of care was discussed with the Holistic Pulser Dr. Alvaro Ahumada, PGY2
[2025-05-24] VITALS (31 sets, daily range): BP systolic 98–126; BP diastolic 61–88; PULSE 70–120; RESP 11–33; TEMP 36.1–36.6; O2SAT 93–100; BMI 68.6
[2025-05-24] MEDS: INSULIN LISPRO (AdmeLOG) 1 UNIT/0.01 ML UNIT SC ×4 (00:53→17:39)
[2025-05-24] MEDS: GABAPENTIN 100 MG CAPSULE GT ×3 (05:30→21:31)
[2025-05-24 06:29] LABS: Basophils # (Auto) 0.0 Thou/mm3 (0.0-0.2); Basophils % (Auto) 0 % (0-2.5); Eosinophils # (Auto) 0.0 Thou/mm3 (0.0-0.5); Eosinophils % (Auto) 0 % (0-10); Hematocrit 24.2 % (41.0-53.0); Immature Granulocytes Auto 0.09 Thou/mm3 (0.00-0.00); Lymphocytes # (Auto) 1.5 Thou/mm3 (1.0-4.8); Lymphocytes % (Auto) 9 % (10-50); Mean Corpuscular HGB Conc 31.0 g/dl (31.0-37.0); Mean Corpuscular Hemoglobin 29.0 pg (25.0-35.0); Mean Corpuscular Volume 93 fL (80-100); Monocytes # (Auto) 0.9 Thou/mm3 (0.0-0.8); Monocytes % (Auto) 6 % (0-12); Neutrophils # (Auto) 13.2 Thou/mm3 (1.8-7.7); Neutrophils % (Auto) 84 % (37-80); Nucleated Red Blood Cell # 0.00 Thou/mm3 (0.00-0.00); Nucleated Red Blood Cell % 0 /100 WBC (0); Platelet Count 402 Thou/mm3 (140-440); RDW Standard Deviation 61.1 fL (35.1-43.9); Red Blood Count 2.59 Miln/mm3 (4.50-5.90); White Blood Count 15.7 Thou/mm3 (3.8-10.6)
[2025-05-24 06:44] LABS: Hemoglobin 7.5 g/dL (13.5-16.0)
[2025-05-24] MEDS: ALBUTEROL/IPRATROPIUM (Duoneb) RT SOL 3 ML NEBU INH ×3 (07:17→23:08)
[2025-05-24] MEDS: ACETYLCYSTEINE RT SOL 10% 4 ML NEBU 3 ML INH ×3 (07:17→23:08)
[2025-05-24 07:24] LABS: Alanine Aminotransferase 8 U/L (10-49); Albumin, Serum 3.5 gm/dL (3.4-4.8); Albumin/Globulin Ratio 1.2 (1.2-2.2); Alkaline Phosphatase 173 U/L (46-116); Anion Gap 12 (7-16); Aspartate Amino Transferase 10 U/L (0-34); BUN/Creatinine Ratio 28 Ratio (12-20); Bilirubin,Total 0.3 mg/dL (0.3-1.2); Blood Urea Nitrogen 90 mg/dL (9-23); Calcium 9.1 mg/dL (8.3-10.6); Calcium (Corrected) 9.5 mg/dL (8.5-10.1); Carbon Dioxide 27.6 mMol/L (20.0-31.0); Chloride 100 mMol/L (98-107); Creatinine (Component) 3.2 mg/dL (0.6-1.3); Estimated Creatinine Clearance 38.3 mL/min (>60); Globulin 3.0 gm/dL (2.3-3.5); Glucose 284 mg/dL (74-106); Magnesium 2.3 mg/dL (1.6-2.6); Osmolality,Calculated 317 (275-295); Phosphorous 5.4 mg/dL (2.4-5.1); Potassium 5.3 mMol/L (3.4-5.1); Sodium 140 mMol/L (136-145); Total Protein 6.5 gm/dL (5.7-8.2); eGFR 21 See Note
[2025-05-24] MEDS: INSULIN GLARGINE (Lantus) 5 UNIT/0.05 ML (PER 5 UNITS) 38 UNIT SC (08:26)
[2025-05-24] MEDS: AMIODARONE HCL 200 MG TABLET GT (08:28)
[2025-05-24] MEDS: LANSOPRAZOLE 30 MG TAB.RAP.DR GT (08:28)
[2025-05-24] MEDS: CHLORHEXIDINE MOUTHWASH 0.12% UDC 15 ML PO (08:28)
[2025-05-24] MEDS: SEVELAMER CARBONATE 0.8 GM PACKET (NON-FORMULARY) GT ×3 (08:28→17:18)
[2025-05-24] MEDS: SOD HYPOCHLORITE 1/4 STR 473 ML BTL IRRIG ×2 (08:29→21:36)
--- NOTE | 2025-05-24 10:01 | PC.SS ---
Addendum entered by Janessa Ramírez 05/24/25 15:02: SS has received call from Rosa JEFFERSON from [facility] who explained they are working on insurance authorization for [facility] and they still need FADI. SS has also spoken to Atif from [facility] and explained pt will require an [facility] rider during transportation possibly next week. Original Note: SS has spoken to RONNY Lee from [facility] who explained their center medical and lab director has reviewed patient's information and approved LTAC placement. Rosa JEFFERSON will follow up with Jose from [facility] then move forward for FADI (letter of agreement). Pt is aware. Bedside nurse, Aspen is aware. Charge nurse, Yuan is aware.
[2025-05-24] MEDS: EPOETIN ALFA-EPBX INJ 10,000 UNIT/ML VIAL (ESRD) 10000 UNIT SC (10:50)
--- NOTE | 2025-05-24 11:45 | ESPR_ITS ---
Documentation for date of: 05/24/25 Subjective Subjective Interval history: Pending discharge due to letter of agreement between insurance and LTAC. No acute events overnight. Patient had trouble reading this morning, tracheostomy tube was adjusted, improved patient's breathing. Patient was conversational this morning, was updated that he is pending discharge to LTAC. Had 3-hour dialysis session this morning due to electrolyte changes. Labs and vitals were reviewed. Sacral wound is being treated by wound care. He continues to be medically stable. Review of systems otherwise negative except what is mentioned above. Exam Vital Signs Temp Pulse Resp BP Pulse Ox O2 Del Method O2 Flow Rate 97.4 F 75 19 120/75 96 Mechanical Ventilation 65 05/24/25 08:32 05/24/25 11:30 05/24/25 08:32 05/24/25 11:30 05/24/25 08:32 05/24/25 08:00 05/24/25 08:32 FiO2 35 05/24/25 08:32 Narrative Exam Physical Exam: Constitutional: Alert, oriented x 3 and no acute distress. Nods and expresses self to questions, writes on white board for communication. Elderly male, morbidly obese. HEENT: Vision grossly intact. Patent nares. Trachea midline. Tracheostomy tube in situ, exit site clean. Mouth moist. Respiratory: Chest normal on inspection and decreased air entry in all lung sims, transmitted sounds and congestion on anterior chest wall, middle and upper lobes. Cardiovascular: S1 and S2 audible, RRR. No murmurs carotid bruit. No gross JVD. Abdominal: Soft, obese and non tender to palpation in all quadrants. BS +. Jejunostomy tube in situ, exit site clean Genitourinary: No bladder tenderness, no flank pain. Normal to palpation Musculoskeletal: Extremities tone within normal limits. Mild edema in right upper extremity, improved upon placing on pillow. No lower extremity edema bilaterally. Neurological: CN II - XII grossly intact. Extremity motor and sensation grossly intact. Extremities: 1+ pitting lower extremity edema bilaterally. Skin: Warm, dry and intact. Large sacral decubitus ulcer, necrotic tissue noted. No purulent drainage noted. Cleanly packed with dressings. Psychiatric: Patient has good affect, is cooperative Objective Labs 05/25/25 05:40 05/25/25 05:40 Labs: Laboratory Results - last 24 hr 05/24/25 05:35 WBC 15.7 H RBC 2.59 L Hgb 7.5 L Hct 24.2 L MCV 93 MCH 29.0 MCHC 31.0 RDW Std Deviation 61.1 H Plt Count 402 Neut % (Auto) 84 H Lymph % (Auto) 9 L [place] % (Auto) 6 Eos % (Auto) 0 Baso % (Auto) 0 Neut # (Auto) 13.2 H Lymph # (Auto) 1.5 [place] # (Auto) 0.9 H Eos # (Auto) 0.0 Baso # (Auto) 0.0 Immature Gran # (Auto) 0.09 H Absolute Nucleated RBC 0.00 Immature Gran % 1 H Nucleated RBC % 0 Sodium 140 Potassium 5.3 H D Chloride 100 Carbon Dioxide 27.6 Anion Gap 12 BUN 90 H Creatinine 3.2 H Estim Creat Clear Calc 38.3 L eGFR 21 L BUN/Creatinine Ratio 28 H Glucose 284 H Calculated Osmolality 317 H Calcium 9.1 Corrected Calcium 9.5 Phosphorus 5.4 H Magnesium 2.3 Total Bilirubin 0.3 AST 10 ALT 8 L Alkaline Phosphatase 173 H Total Protein 6.5 Albumin 3.5 Globulin 3.0 Albumin/Globulin Ratio 1.2 ABG Interpretation ABG results: 04/18/25 04/18/25 04/18/25 04:40 06:27 10:30 ABG pH 7.28 L 7.33 L 7.36 ABG pCO2 72 H* 67 H 61 H ABG pO2 132 H 60 L D 60 L ABG HCO3 34 H 35 H 34 H ABG O2 Saturation 100 H 93 93 ABG Base Excess 6 H 7 H 8 H 04/19/25 05/10/25 08:53 07:40 ABG pH 7.47 H D 7.52 H ABG pCO2 45 D 40 ABG pO2 66 L 60 L ABG HCO3 33 H 32 H ABG O2 Saturation 96 94 ABG Base Excess 8 H 8 H Quality Measures Quality Measures VTE prophylaxis Advance care planning discussed with:: patient Assessment & Plan Assessment Current Active Medications: Generic Name Dose Route Start Last Admin Trade Name Freq PRN Reason Stop Dose Admin Acetylcysteine 3 ml 05/10/25 15:00 05/24/25 07:17 Acetylcysteine Rt Gloria 10% 4 Ml Nebu INH 06/09/25 14:59 3 ml Q8HRRT KOURTNEY Administration Albuterol/Ipratropium 3 ml 05/10/25 15:00 05/24/25 07:17 Albuterol/Ipratropium (Duoneb) Rt Gloria 3 Ml Nebu INH 06/09/25 14:59 3 ml Q8HRRT KOURTNEY Administration Amiodarone HCl 200 mg 05/12/25 13:45 05/24/25 08:28 Amiodarone Hcl 200 Mg Tablet GT 06/11/25 13:44 200 mg QDAY KOURTNEY Administration Chlorhexidine Gluconate 15 ml 05/22/25 13:30 05/24/25 08:28 Chlorhexidine Mouthwash 0.12% Udc 15 Ml PO 06/21/25 13:29 15 ml DAILY KOURTNEY Administration Dextrose 25 ml 05/12/25 13:47 Dextrose 50%-Water Inj 50 Ml Syringe IV 06/11/25 13:46 Q15MIN PRN BG 50-70 responsive npo pt Dextrose 50 ml 05/12/25 13:48 Dextrose 50%-Water Inj 50 Ml Syringe IV 06/11/25 13:47 Q15MIN PRN BG <50 OR BG <70 & pt unresponsive Gabapentin 100 mg 05/20/25 14:30 05/24/25 05:30 Gabapentin 100 Mg Capsule GT 06/19/25 14:29 100 mg TID KOURTNEY Administration Glucagon 1 mg 05/12/25 13:49 Glucagon Inj 1 Mg Vial IM 06/11/25 13:48 Q15MIN PRN BG <70, and no IV access Heparin Sodium (Porcine) 2,700 unit 05/21/25 16:12 05/22/25 11:57 Heparin Sod Inj 1000 Unit/Ml Vial 10 Ml INDWELLCAT 06/04/25 16:11 2,700 unit X1 PRN Administration DIALYSIS Albumin Human 25 gm in 100 mls @ 100 mls/min 05/21/25 16:13 Albuminar-25 Ivpb IV 05/24/25 16:12 PRN PRN DIALYSIS Insulin Glargine 38 unit 05/13/25 09:00 05/24/25 08:26 Insulin Glargine (Lantus) 5 Unit/0.05 Ml (Per 5 Units) SC 06/12/25 08:59 38 unit QDAY KOURTNEY Administration Insulin Human Lispro 0 unit 05/12/25 18:00 05/24/25 05:30 Insulin Lispro (Admelog) 1 Unit/0.01 Ml Unit SC 06/11/25 17:59 4 unit Q6HR KOURTNEY Administration Protocol Lansoprazole 30 mg 05/05/25 09:00 05/24/25 08:28 Lansoprazole 30 Mg Tab. GT 06/04/25 08:59 30 mg QDAY KOURTNEY Administration Methylprednisolone Sodium Succinate 40 mg 05/22/25 21:00 05/24/25 08:24 Methylprednisolone Sod Succ 40 Mg Vial IVP 05/29/25 20:59 40 mg BID KOURTNEY Administration Pharmacy Consult 1 each 05/14/25 08:22 Pharmacy Renal Dose Adjustment 1 Ea XX 06/13/25 08:21 PRN PRN CONSULT Sennosides 2 tab 05/02/25 09:00 05/24/25 08:29 Senna Tablet GT 06/01/25 08:59 2 tab QDAY KOURTNEY Administration Protocol Sevelamer Carbonate 0.8 gm 05/20/25 09:45 05/24/25 08:28 Sevelamer Carbonate 0.8 Gm Packet (Non-Formulary) GT 06/19/25 09:44 0.8 gm TIDWM KOURTNEY Administration Sodium Hypochlorite 473 ml 05/06/25 21:00 05/24/25 08:29 Sod Hypochlorite 1/4 Str 473 Ml Btl IRRIG 06/05/25 20:59 1 applicatio BID KOURTNEY Administration Plan Patient is a 64-year-old male with morbid obesity with subsequent obesity hypoventilation syndrome requiring tracheostomy and J-tube placement, hypertension, type 2 diabetes, atrial fibrillation, right internal jugular DVT and acute kidney injury secondary to ischemic ATN requiring multiple sessions of hemodialysis and sacral ulcers status post wound VAC currently being treated for acute on chronic hypoxic respiratory failure and ischemic ATN. S/p temporary dialysis catheter placement and hemodialysis session 05/21, continue hemodialysis today. Pending bronchoscopy. #Acute kidney injury-suspicion of ischemic ATN, resolved #Fluid overload #Acute on chronic hypoxic respiratory failure, improving. 04/20 ? Attempt was made to place Fuller catheter however unable to pass catheter due to significant resistance and attempt was terminated. Discussed with nursing about possibility of weighing briefs daily. Patient had temporary hemodialysis catheter placed 04/24, receiving dialysis had 1 L removed on 04/24, 2 L on 04/25, 2.14 on 04/26, 2.1 L on 04/29; temporary dialysis catheter discontinued on 05/06 Patient being followed by nephrology, nephrology agrees with diuresis for now, will need close monitoring, poor candidate for dialysis due to body habitus and also has chronic anemia with wound bleeding from sacral region-claim taker did discuss with patient in detail, he verbalizes understanding. Bumex held on 05/15 due to worsening creatinine, continues to worsen. Due to lack of improvement despite diuretic holiday, discussed with patient today need for hemodialysis in the near future. Patient initially refused but after multiple attempts of counseling and explaining risks and benefits, including , patient was eventually agreeable. S/p temporary hemodialysis catheter placement and hemodialysis session 05/21. Hemodialysis 05/22 and plan for 05/23. Plan: -Nephrology Dr. Li consulted, appreciate recommendations - 3-hour hemodialysis session today -Monitor CMP -Continue antibiotics -Monitor I&O's -Avoid nephrotoxic agents -Renally dose medication #Acute on Chronic Respiratory Failure secondary to mucous plug #Healthcare-Associated Pneumonia #Leukocytosis Patient noted to have acute on chronic respiratory failure, required bronchoscopy w/ mucous plugs removed. Previous sputum Pseudomnas (04/03/2025) 05/09/2025 Bronchial washing culture grew pseudomonas, sensitive to Zosyn Vancomycin (05/09/2025-05/12/25) and doxycycline (05/12-05/13) were discontinued due to nephrotoxicity. Completed Zosyn course (05/09-05/16/25) Of note, patient has history of Pseudomonnas infection 05/21/25: Patient was having difficulty breathing this morning due to tracheostomy misalignment. Consulted ICU, plan for tracheostomy adjustment today. Plan: -s/p bronchoscopy -per ICU recommendations, continue Solumedrol 40 mg IVP BIS for 5-7 days -resume oral and tracheostomy care -Repeat bronchoscopy at a later time -Completed Levofloxacin (05/14/25-05/21/25) -Blow-by during the day, mechanical ventilation at night as needed at baseline, currently on mechanical ventilation -DuoNeb, Mucomyst and chest physiotherapy scheduled #Paroxysmal atrial fibrillation Per cardiology there is a concern of heart block, tachybradycardia syndrome as well. [id number] score of 3 points indicating 3.2% risk of stroke per year HAS-BLED: 3. High risk of major bleeding 6/30: Discussed with steel pourer helper?will start on amiodarone previous dose, 200 mg daily. Per cardiology patient is a poor candidate for pacemaker placement, patient was informed at bedside by cardiology team. He verbalized understanding. Plan: - Continue p.o. amiodarone. - Cardiology consulted, appreciate recommendations - Patient will need anticoagulation, however has low hemoglobin, bleeding wound will defer anticoagulation for now. #Congestive heart failure, HFpEF 65% #Diastolic dysfunction, grade 3 #Pulmonary hypertension #Right heart failure #BASIA/OHS #Moderate to severe a AOV calcification with no stenosis Patient has a past medical history of right heart faillure, Diastolic dysfucntion, and HFpEF 65% likely in the setting of cardiomypoathy seconadary to morbid obesity form BASIA/OHS. Given Cxr noted with prominent vascular congestion, consider repeat BNP, although hemodynamically unstable given pressors but may consider. No pheriphearl edema noted. Cxr (05/09/2025): Mild Heart Failure, Prominent vascular congestion and Moderate to large right pleural effusion Echo (04/29/2025): Normal LV size and function. Estimated EF of 65%. Grade III Diastolic Dysfunction.Right ventricle is dilated with mild RV dysfunction RVSP 47mmHg. RAP 15mmHg.Severe biatrial dilation.Moderate to Severe AOV calcification with no stenosis <ild tricuspid regurgitation. No pericardial effusion. Plan -On hemodialysis -Recommended patient to sit up in bed to help relieve IVC pressure -Cardiology consulted -Patient 1500 cc/day fluid restriction, daily weights, tube feeds resumed -K >4 and Mg >2 #Decubitus ulcer status post excisional debridement of sacral decubitus ulcer Recent debridement of large decubitus ulcer on 05/02/2025 likely secondary to morbid obestiy and lack of mobility. 04/29: excisional debridement of sacral decubitus ulcer, washout and placement of wound VAC. 05/02: Patient had significant bleeding overnight, wound VAC leaked. Hemoglobin stable this morning, patient's bleeding from wound overnight was controlled with suture ligation. Wound was assessed by general surgeon, patient was transitioned back to red dry dressings daily. Plan: -Wound care on hold due to dialysis #Jejunostomy tube #Abdominal abscess - resolved Patient report said that there was an intra-abdominal abscess that have could have been from a perforated ulcer in the past See also note reviewed, mentions that patient likely had a marginal ulcer, but also was not seen on EGD without, currently patient has no abdominal tenderness and is totally asymptomatic. No current drain at this time Patient is status post laparoscopic J-tube placement and is currently on feeds Patient will continue to have this tube and will likely go to a long-term care facility with this until patient can swallow safely Plan: ? Monitor vitals closely #Normocytic normochromic anemia - stable Multifactorial. Patient's baseline hemoglobin throughout the hospitalization has been in the range 9?11, patient did have some bleeding from wound VAC site on 05/02 which was controlled by suture ligation by general surgery. Had recurrent bleeding and eventually heparin drip was held. Hgb continues to hover around 7- 8. - Patient is a [employer], denies any blood transfusion/blood products - Monitor CBC #Right internal jugular venous thrombosis #Right arm swelling Continuing free water flushes, patient has gone multiple days of heparin drip since 04/01 Right upper extremity ultrasound May 04-shows right IJ thrombus Plan: ? Continue to hold heparin drip due to recurrent sacral ulcer bleeding #Morbid obesity #DM2 A1C 7.6 on 03/05/2025 Patient has a BMI of 79.5->68.7 Attempted to prescribe tirzepatide to outside pharmacy to bring inpatient however no one is able to pick it up for the patient. Plan: - ISS scale 2 - Hypoglycemia protocol - 38 units of Lantus. Health Maintenance Disposition: Telemetry DVT prophylaxis: SCDs, patient is Protestant and has bleeding sacral wound GI prophylaxis: Protonix Diet: 2Cal Tube Feeds with 30 cc/hour water flush CODE STATUS: Full code Patient plan of care was discussed with the senior resident, Dr. Tobar, and attending physician, Dr. Mendoza. Meena Dutta, PGY-1 Attending Provider Attestation/Addendum 64-year-old with morbid obesity with subsequent obesity hypoventilation syndrome requiring tracheostomy and J-tube placement, hypertension, type 2 diabetes, atrial fibrillation, right internal jugular DVT and acute kidney injury secondary to ischemic ATN requiring multiple sessions of hemodialysis and sacral ulcers status post wound VAC currently being treated for acute on chronic hypoxic respiratory failure, ischemic ATN. Overnight, patient noted to have significant bleeding from decubitus ulcer and subsequently general surgery was consulted and heparin drip was discontinued. Talked with the patient regarding discontinuation of heparin drip and given that he has a right internal jugular DVT and atrial fibrillation and updated him that he is at risk for strokes and worsening disease progression however he is in agreement to stop the heparin drip for now. In addition, patient is also a Protestant and refusing blood product and I counseled him regarding need of blood product and risk of not getting it including worsening disease progression which can lead to cardiac arrest and however he understands and continues to refuse for which we will respect his decision. As of now, patient kidney function to obtain a TDC and initiate hemodialysis. Anemia is stable and patient appears to be stable on mechanical ventilation with stable setting. As of now, plan to continue hemodialysis and mechanical ventilation and reached out to director of social work regarding finding LTAC, baudilio will have insurance approval and placement next week. Until then continue to monitor the patient in tele. I reviewed above note and agree with findings and plans. I have also personally examined the patient with medicine team and went over assessment and plan with medical team including technical internship and resident physician.
[2025-05-24] MEDS: HEPARIN SOD INJ 1000 UNIT/ML VIAL 10 ML 2700 UNIT INDWELLCAT (13:11)
--- NOTE | 2025-05-24 13:42 | ESPR_ITS ---
Documentation for date of: 05/24/25 Subjective Subjective Interval history: Mr. Ortega is a 64-year-old male with a past medical history of type 2 diabetes mellitus, history of ATN, A-fib, hypertension, severe right-sided heart failure, HFpEF, severe BASIA, status post tracheostomy and jejunostomy, patient was previously admitted here for hypoxic respiratory failure requiring mechanical ventilation, was later transferred out to [facility] for jejunostomy tube placement, complicated by abdominal abscess, patient is now transferred back to [facility] for further management. The patient was initially noted to have pneumonia and acute hypoxic respiratory failure, requiring mechanical ventilation, nephrology was consulted as patient's renal function continues to worsen. Patient had previously required hemodialysis for ATN, but is a poor dialysis candidate outpatient. Patient did not have any acute events overnight. Patient does not have any complaints/concerns. Planning for temporary HD catheter placement tomorrow. 05/20/2025 patient currently seen in telemetry. No acute overnight events. Took over the care from Dr. Minor. Urine output seems to be acceptable. However azotemia persists. Had a long conversation with the patient and he agreed for temporary dialysis. Labs remarkable for Hgb 7.9, BUN 127, Cr 4.3, eGFR 15, Phos 6.6 05/21/2025 No acute overnight events. Patient states he is doing okay and has no new complaints/concerns. Urine output of 2.2L last 24 hours. However azotemia persists. Temporary dialysis catheter today continues to be the plan. Labs remarkable for Hgb 7.7, BUN 123, Cr 4.4, eGFR 14, Phos 6.6 05/22/2025 No acute overnight events. Patient states he is currently doing okay and has no new complaints/concerns. Urine output 1695 last 24 hours. Patient received dialysis yesterday and improvement in BUN, creatinine and eGFR. Labs are remarkable for Hgb 7.6, BUN 87, Cr 3.3, eGFR 20, Phos 5.9 (6.6). 05/23/2025 No acute overnight events. Patient states he is currently doing okay and has no new complaints/concerns. Urine output 1694 last 24 hours with 1312 ml output from dialysis yesterday. Patient received dialysis yesterday with continued improvement in BUN, creatinine and eGFR. Labs are remarkable for Hgb 7.3, BUN 71, Cr 3.0, glucose 240, eGFR 22, Ca 9.1, Phos 5.0, Mg 2.3 05/24/2025 No acute overnight events. Patient denies any new complaints/concerns. Urine output 887 ml last 24 hours. The plan is for the patient to receive dialysis today; kidney function tests continue to improve with dialysis. Patient denies any chest pain, shortness of breath, abdominal pain. Exam Vital Signs Temp Pulse Resp BP Pulse Ox O2 Del Method O2 Flow Rate 97.0 F 93 18 115/73 99 Mechanical Ventilation 65 05/24/25 12:00 05/24/25 12:42 05/24/25 12:00 05/24/25 12:01 05/24/25 12:42 05/24/25 12:00 05/24/25 12:00 FiO2 35 05/24/25 12:42 Narrative Exam GENERAL APPEARANCE: Awake, alert and oriented. No acute distress. NECK: Neck supple, no JVD or bruit, R IJ dialysis catheter CARDIOVASCULAR: Heart rate regular, no murmurs LUNGS/CHEST: Lungs CTAB, no SOB ABDOMEN: Soft, nontender, nondistended. No masses. Normal bowel sounds. EXTREMITIES: 2+ edema in the lower extremities, mild upper extremity edema SKIN/MSK: Skin in warm, dry and intact without rashes or lesions. Appropriate color for ethnicity. Nailbeds pink with no cyanosis or clubbing. PSYCHIATRIC: Appropriate mood and affect. NEUROLOGICAL : No neurological deficits Objective Labs 05/24/25 05:35 05/24/25 05:35 Labs: Laboratory Results - last 24 hr 05/24/25 05:35 WBC 15.7 H RBC 2.59 L Hgb 7.5 L Hct 24.2 L MCV 93 MCH 29.0 MCHC 31.0 RDW Std Deviation 61.1 H Plt Count 402 Neut % (Auto) 84 H Lymph % (Auto) 9 L Walker % (Auto) 6 Eos % (Auto) 0 Baso % (Auto) 0 Neut # (Auto) 13.2 H Lymph # (Auto) 1.5 Walker # (Auto) 0.9 H Eos # (Auto) 0.0 Baso # (Auto) 0.0 Immature Gran # (Auto) 0.09 H Absolute Nucleated RBC 0.00 Immature Gran % 1 H Nucleated RBC % 0 Sodium 140 Potassium 5.3 H D Chloride 100 Carbon Dioxide 27.6 Anion Gap 12 BUN 90 H Creatinine 3.2 H Estim Creat Clear Calc 38.3 L eGFR 21 L BUN/Creatinine Ratio 28 H Glucose 284 H Calculated Osmolality 317 H Calcium 9.1 Corrected Calcium 9.5 Phosphorus 5.4 H Magnesium 2.3 Total Bilirubin 0.3 AST 10 ALT 8 L Alkaline Phosphatase 173 H Total Protein 6.5 Albumin 3.5 Globulin 3.0 Albumin/Globulin Ratio 1.2 ABG Interpretation ABG results: 04/18/25 04/18/25 04/18/25 04:40 06:27 10:30 ABG pH 7.28 L 7.33 L 7.36 ABG pCO2 72 H* 67 H 61 H ABG pO2 132 H 60 L D 60 L ABG HCO3 34 H 35 H 34 H ABG O2 Saturation 100 H 93 93 ABG Base Excess 6 H 7 H 8 H 04/19/25 05/10/25 08:53 07:40 ABG pH 7.47 H D 7.52 H ABG pCO2 45 D 40 ABG pO2 66 L 60 L ABG HCO3 33 H 32 H ABG O2 Saturation 96 94 ABG Base Excess 8 H 8 H Quality Measures Quality Measures VTE prophylaxis Advance care planning discussed with:: patient Assessment & Plan Assessment Current Active Medications: Generic Name Dose Route Start Last Admin Trade Name Freq PRN Reason Stop Dose Admin Acetylcysteine 3 ml 05/10/25 15:00 05/24/25 07:17 Acetylcysteine Rt Gloria 10% 4 Ml Nebu INH 06/09/25 14:59 3 ml Q8HRRT KOURTNEY Administration Albuterol/Ipratropium 3 ml 05/10/25 15:00 05/24/25 07:17 Albuterol/Ipratropium (Duoneb) Rt Gloria 3 Ml Nebu INH 06/09/25 14:59 3 ml Q8HRRT KOURTNEY Administration Amiodarone HCl 200 mg 05/12/25 13:45 05/24/25 08:28 Amiodarone Hcl 200 Mg Tablet GT 06/11/25 13:44 200 mg QDAY KOURTNEY Administration Chlorhexidine Gluconate 15 ml 05/22/25 13:30 05/24/25 08:28 Chlorhexidine Mouthwash 0.12% Udc 15 Ml PO 06/21/25 13:29 15 ml DAILY KOURTNEY Administration Dextrose 25 ml 05/12/25 13:47 Dextrose 50%-Water Inj 50 Ml Syringe IV 06/11/25 13:46 Q15MIN PRN BG 50-70 responsive npo pt Dextrose 50 ml 05/12/25 13:48 Dextrose 50%-Water Inj 50 Ml Syringe IV 06/11/25 13:47 Q15MIN PRN BG <50 OR BG <70 & pt unresponsive Gabapentin 100 mg 05/20/25 14:30 05/24/25 05:30 Gabapentin 100 Mg Capsule GT 06/19/25 14:29 100 mg TID KOURTNEY Administration Glucagon 1 mg 05/12/25 13:49 Glucagon Inj 1 Mg Vial IM 06/11/25 13:48 Q15MIN PRN BG <70, and no IV access Heparin Sodium (Porcine) 2,700 unit 05/21/25 16:12 05/24/25 13:11 Heparin Sod Inj 1000 Unit/Ml Vial 10 Ml INDWELLCAT 06/04/25 16:11 2,700 unit X1 PRN Administration DIALYSIS Albumin Human 25 gm in 100 mls @ 100 mls/min 05/21/25 16:13 Albuminar-25 Ivpb IV 05/24/25 16:12 PRN PRN DIALYSIS Insulin Glargine 38 unit 05/13/25 09:00 05/24/25 08:26 Insulin Glargine (Lantus) 5 Unit/0.05 Ml (Per 5 Units) SC 06/12/25 08:59 38 unit QDAY KOURTNEY Administration Insulin Human Lispro 0 unit 05/12/25 18:00 05/24/25 12:04 Insulin Lispro (Admelog) 1 Unit/0.01 Ml Unit SC 06/11/25 17:59 2 unit Q6HR KOURTNEY Administration Protocol Lansoprazole 30 mg 05/05/25 09:00 05/24/25 08:28 Lansoprazole 30 Mg Tab.Rap.Dr DUARTE 06/04/25 08:59 30 mg QDAY KOURTNEY Administration Methylprednisolone Sodium Succinate 40 mg 05/22/25 21:00 05/24/25 08:24 Methylprednisolone Sod Succ 40 Mg Vial IVP 05/29/25 20:59 40 mg BID KOURTNEY Administration Pharmacy Consult 1 each 05/14/25 08:22 Pharmacy Renal Dose Adjustment 1 Ea XX 06/13/25 08:21 PRN PRN CONSULT Sennosides 2 tab 05/02/25 09:00 05/24/25 08:29 Senna Tablet GT 06/01/25 08:59 2 tab QDAY KOURTNEY Administration Protocol Sevelamer Carbonate 0.8 gm 05/20/25 09:45 05/24/25 12:06 Sevelamer Carbonate 0.8 Gm Packet (Non-Formulary) GT 06/19/25 09:44 0.8 gm TIDWM KOURTNEY Administration Sodium Hypochlorite 473 ml 05/06/25 21:00 05/24/25 08:29 Sod Hypochlorite 1/4 Str 473 Ml Btl IRRIG 06/05/25 20:59 1 applicatio BID KOURTNEY Administration Plan In summary, Mr. Ortega is a 64-year-old male with past medical history of DM2, hypertension, A-fib, and Jehova's witness was admitted to the ICU on 02/27/2025 for shock and acute on chronic hypoxic respiratory failure. He is s/p laparoscopic J-tube placement from [facility]. #Acute kidney injury-- seems to be in Ischemic ATN #Fluid overload Patient was admitted with acute kidney injury likely ischemic acute tubular necrosis, received temporary hemodialysis catheter placed 04/24, receiving dialysis had 1 L removed on 04/24, 2 L on 04/25, 2.14 on 04/26, 2.1 L on 04/29; temporary dialysis catheter discontinued on 05/06. Dialysis done 05/22 Plan: -Dialysis today -If patient needs to stay next week, continue MWF dialysis schedule -Monitor I&O's -Avoid nephrotoxic agents -Renally dose medication #Acute on Chronic Respiratory Failure secondary to mucous plug #Healthcare-Associated Pneumonia #Leukocytosis #Paroxysmal atrial fibrillation #Right diastolic CHF #Decubitus ulcer #Chronic back pain #Jejunostomy tube #Normocytic normochromic anemia #Acute on Chronic Hypoxic Hypercapnic Respiratory Failure #Obesity hypoventilation syndrome and obstructive sleep apnea #Tracheostomy #Hx of A-fib #Right internal jugular venous thrombosis #Right arm swelling #Morbid obesity #DM2 Above handled by primary hospitalist team Patient seen and care discussed with my attending physician, Dr. Teressa Fox MD PGY-1 Internal Medicine Attending Provider Attestation/Addendum Patient seen and examined with resident physician Dr. Fox. Note reviewed, agree with findings and recommendations. BUN/creatinine elevated again- ?? going into ATN. Edema ++ Labs 3 times weekly with pediatric tubes due to his Buddhist status. Had a long conversation with the patient-agreed for temporary dialysis. Unfortunately IR cannot do permanent catheter -- agreed to do temporary catheter due to his BMI. Dialysis catheter placed by Dr. Galicia in the right IJ. Patient received dialysis session on Tuesday. Patient currently seen on dialysis. Tolerating dialysis without any problems. Hemodialysis for 3 hours, 2K, ultrafiltration 2-3 L, Epogen 6000, no heparin ordered. Plan of care discussed with the dialysis nurse. Please see dialysis flowsheet for further details. Spoke to Dr. Mendoza He will need LTAC placement with dialysis.
--- NOTE | 2025-05-24 18:41 | ESPR_ITS ---
<Statement entered by Lenora John MD - 05/26/25 17:59> I personally examined the patient evaluated and telemetry patient is clinically stable remains in atrial fibrillation rate controlled well continue amiodarone for now. I reviewed the progress note all essential components of the resident physician PGY 2 Dr. Kirk Ahumada agree with the treatment plan recommendation as documented Documentation for date of: 05/24/25 Subjective Subjective Interval history: Patient is seen and examined at bedside No acute overnight events. Underwent hemodialysis this morning. Denies any other cardiac complaints Vitals are stable and patient is still in atrial fibrillation with controlled ventricular rate Pending LTAC placement. Recommended to continue amiodarone 200 Mg through G- tube Exam Vital Signs Temp Pulse Resp BP Pulse Ox O2 Del Method O2 Flow Rate 97.9 F 98 20 121/88 H 99 Mechanical Ventilation 65 05/24/25 16:00 05/24/25 16:00 05/24/25 16:00 05/24/25 16:00 05/24/25 16:00 05/24/25 16:00 05/24/25 16:00 FiO2 50 05/24/25 16:00 Narrative Exam General: Awake. obese. Tracheostomy tube insitu on pressure support HEENT: Normocephalic, atraumatic, mucous membranes moist. Heart: IRRegular rate and rhythm, no murmurs. Lungs: Clear to auscultation with no wheezing or crackles. But noted decreased breath sounds bilaterally in view of body habitus. noted right IJV catheter on right side Abdomen: Soft, nondistended, nontender, positive bowel sounds. ?No guarding or rebound tenderness. Neurologic: Alert and oriented x3, no gross neurological deficit, and patient able to move all 4 extremities. Extremities: No edema. Skin: Large sacral ulcer in the gluteal region, Decubitus Grade III/IV Objective Labs 05/24/25 05:35 05/24/25 05:35 Labs: Laboratory Results - last 24 hr 05/24/25 05:35 WBC 15.7 H RBC 2.59 L Hgb 7.5 L Hct 24.2 L MCV 93 MCH 29.0 MCHC 31.0 RDW Std Deviation 61.1 H Plt Count 402 Neut % (Auto) 84 H Lymph % (Auto) 9 L [place] % (Auto) 6 Eos % (Auto) 0 Baso % (Auto) 0 Neut # (Auto) 13.2 H Lymph # (Auto) 1.5 [place] # (Auto) 0.9 H Eos # (Auto) 0.0 Baso # (Auto) 0.0 Immature Gran # (Auto) 0.09 H Absolute Nucleated RBC 0.00 Immature Gran % 1 H Nucleated RBC % 0 Sodium 140 Potassium 5.3 H D Chloride 100 Carbon Dioxide 27.6 Anion Gap 12 BUN 90 H Creatinine 3.2 H Estim Creat Clear Calc 38.3 L eGFR 21 L BUN/Creatinine Ratio 28 H Glucose 284 H Calculated Osmolality 317 H Calcium 9.1 Corrected Calcium 9.5 Phosphorus 5.4 H Magnesium 2.3 Total Bilirubin 0.3 AST 10 ALT 8 L Alkaline Phosphatase 173 H Total Protein 6.5 Albumin 3.5 Globulin 3.0 Albumin/Globulin Ratio 1.2 ABG Interpretation ABG results: 04/18/25 04/18/25 04/18/25 04:40 06:27 10:30 ABG pH 7.28 L 7.33 L 7.36 ABG pCO2 72 H* 67 H 61 H ABG pO2 132 H 60 L D 60 L ABG HCO3 34 H 35 H 34 H ABG O2 Saturation 100 H 93 93 ABG Base Excess 6 H 7 H 8 H 04/19/25 05/10/25 08:53 07:40 ABG pH 7.47 H D 7.52 H ABG pCO2 45 D 40 ABG pO2 66 L 60 L ABG HCO3 33 H 32 H ABG O2 Saturation 96 94 ABG Base Excess 8 H 8 H Quality Measures Quality Measures VTE prophylaxis Advance care planning discussed with:: patient Assessment & Plan Assessment Current Active Medications: Generic Name Dose Route Start Last Admin Trade Name Freq PRN Reason Stop Dose Admin Acetylcysteine 3 ml 05/10/25 15:00 05/24/25 14:42 Acetylcysteine Rt Gloria 10% 4 Ml Nebu INH 06/09/25 14:59 3 ml Q8HRRT KOURTNEY Administration Albuterol/Ipratropium 3 ml 05/10/25 15:00 05/24/25 14:42 Albuterol/Ipratropium (Duoneb) Rt Gloria 3 Ml Nebu INH 06/09/25 14:59 3 ml Q8HRRT KOURTNEY Administration Amiodarone HCl 200 mg 05/12/25 13:45 05/24/25 08:28 Amiodarone Hcl 200 Mg Tablet GT 06/11/25 13:44 200 mg QDAY KOURTNEY Administration Chlorhexidine Gluconate 15 ml 05/22/25 13:30 05/24/25 08:28 Chlorhexidine Mouthwash 0.12% Udc 15 Ml PO 06/21/25 13:29 15 ml DAILY KOURTNEY Administration Dextrose 25 ml 05/12/25 13:47 Dextrose 50%-Water Inj 50 Ml Syringe IV 06/11/25 13:46 Q15MIN PRN BG 50-70 responsive npo pt Dextrose 50 ml 05/12/25 13:48 Dextrose 50%-Water Inj 50 Ml Syringe IV 06/11/25 13:47 Q15MIN PRN BG <50 OR BG <70 & pt unresponsive Gabapentin 100 mg 05/20/25 14:30 05/24/25 13:54 Gabapentin 100 Mg Capsule GT 06/19/25 14:29 100 mg TID KOURTNEY Administration Glucagon 1 mg 05/12/25 13:49 Glucagon Inj 1 Mg Vial IM 06/11/25 13:48 Q15MIN PRN BG <70, and no IV access Heparin Sodium (Porcine) 2,700 unit 05/21/25 16:12 05/24/25 13:11 Heparin Sod Inj 1000 Unit/Ml Vial 10 Ml INDWELLCAT 06/04/25 16:11 2,700 unit X1 PRN Administration DIALYSIS Insulin Glargine 38 unit 05/13/25 09:00 05/24/25 08:26 Insulin Glargine (Lantus) 5 Unit/0.05 Ml (Per 5 Units) SC 06/12/25 08:59 38 unit QDAY KOURTNEY Administration Insulin Human Lispro 0 unit 05/12/25 18:00 05/24/25 17:39 Insulin Lispro (Admelog) 1 Unit/0.01 Ml Unit SC 06/11/25 17:59 4 unit Q6HR KOURTNEY Administration Protocol Lansoprazole 30 mg 05/05/25 09:00 05/24/25 08:28 Lansoprazole 30 Mg Tab.Joshua. GT 06/04/25 08:59 30 mg QDAY KOURTNEY Administration Methylprednisolone Sodium Succinate 40 mg 05/22/25 21:00 05/24/25 08:24 Methylprednisolone Sod Succ 40 Mg Vial IVP 05/29/25 20:59 40 mg BID KOURTNEY Administration Pharmacy Consult 1 each 05/14/25 08:22 Pharmacy Renal Dose Adjustment 1 Ea XX 06/13/25 08:21 PRN PRN CONSULT Sennosides 2 tab 05/02/25 09:00 05/24/25 08:29 Senna Tablet GT 06/01/25 08:59 2 tab QDAY KOURTNEY Administration Protocol Sevelamer Carbonate 0.8 gm 05/20/25 09:45 05/24/25 17:18 Sevelamer Carbonate 0.8 Gm Packet (Non-Formulary) GT 06/19/25 09:44 0.8 gm TIDWM KOURTNEY Administration Sodium Hypochlorite 473 ml 05/06/25 21:00 05/24/25 08:29 Sod Hypochlorite 1/4 Str 473 Ml Btl IRRIG 06/05/25 20:59 1 applicatio BID KOURTNEY Administration Plan Mr. Ortega is a 64-year-old male, [place] with a past medical history of hypertension, diabetes mellitus type 2, history of atrial fibrillation, CHF HFpEF 65%, grade 3 diastolic dysfunction, right heart failure, RSVP 47, moderate to severe ALB calsifications with no stenosis, status post tracheostomy, s/p PEG Tube at [facility], bariatric team, history of dyspahagia, extensive decubitus ulcers, CKD, history of anemia, history of Diego-en- Y gastric bypass, BASIA/OHS, and morbid obesity. Patient was upgraded to ICU for a third time with in acute respiratory respiratory failure secondary to mucous plug and shock, likely cardiogenic shock secondary to complete heart block requiring pressors and downgraded again # A-fib with RVR - s/p cardioversion ---> CVR # Bradycardia and questionable complete heart block, resolved - Patient was hypoxic and was transferred to the ICU on 05/09/2025. - Cardiology was consulted 05/09/2025 for significant bradycardia requiring external temporary transcutaneous pacing. - Plan was to place a temporary transvenous pacemaker if the patient continues to be bradycardic as he was 100% dependent on the transcutaneous pacing. - Bronchoscopy was performed which showed small mucous plug which was removed and patient rhythm was back to his atrial fibrillation with RVR. - Patient was on dopamine at that point of time. Patient blood pressure was on the lower side and was unstable and required cardioversion x 1. - Patient was on levophed and phenylephrine for a short period of time. - Patient is presently ventilator dependent and has a tracheostomy in place along with a jejunostomy. Plan - Recommend to continue telemetry monitoring - In view of ongoing sacral ulcer with recurrent infections, pacemaker placement cannot be done. But fortunately patient did not have any further episodes of bradycardia. So no need of pacemaker placement as of now - Recommended to continue amiodarone 200 Mg G-tube once daily - As patient had large decubitus ulcer and has tendency to bleed, anticoagulation is held for now # H/O CHF, HFpEF 65% #Diastolic dysfunction, grade 3 #Pulmonary hypertension #BASIA/OHS #Moderate to severe a AOV calcification with no stenosis #Moderate Right Pleural Effusion - Patient has a past medical history of right heart failure, Diastolic dysfunction, and HFpEF 65% likely in the setting of cardiomypoathy secondary to morbid obesity form BASIA/OHS. - Leon Mary 03/19/2025: RAP 8, PAP 27, PCWP 7. - Echo (04/29/2025): Normal LV size and function. Estimated EF of 65%. Grade III Diastolic Dysfunction.Right ventricle is dilated with mild RV dysfunction RVSP 47mmHg. RAP 15mmHg.Severe biatrial dilation.Moderate to Severe AOV calcification with no stenosis <ild tricuspid regurgitation. No pericardial effusion. - Echo (05/14/2025) : Normal LV size and function. Estimated EF is 55 to 60%. Severely RA dilated right ventricle as well as right atrium. IVS flattening noted both in systole and diastole indicating both pressure and volume overload Plan -Recommended to hold diuresis for now in view of uptrending BUN and creatinine -Pt will be getting dialysis on 05/21/25 -K >4 and Mg >2 #Acute on Chronic Respiratory Failure secondary to mucus plug #Healthcare-Associated Pneumonia #Leukocytosis #Large Sacral Decubitus Ulcer s/p excisional debridement (05/02/2025) #CKD stage III #Jejunostomy #History of abdominal abscess s/p percutaneous drainage #Diabetes Mellitus Type 2 non insulin depedent #Normocytic Anemia Management of rest of the medical conditions as per primary team and other consultants. Thank you for the consult and allowing us to participate in the care of the patient. Cardiology will continue to follow. Patient plan of care was discussed with the Scene Shifter Dr. Alvaro Ahumada, PGY2
[2025-05-25] VITALS (15 sets, daily range): BP systolic 97–132; BP diastolic 67–90; PULSE 83–115; RESP 13–32; TEMP 36.1–36.3; O2SAT 94–100; BMI 68.6
[2025-05-25] MEDS: INSULIN LISPRO (AdmeLOG) 1 UNIT/0.01 ML UNIT SC ×4 (00:24→18:04)
[2025-05-25] MEDS: GABAPENTIN 100 MG CAPSULE GT ×3 (06:12→21:43)
[2025-05-25] MEDS: ALBUTEROL/IPRATROPIUM (Duoneb) RT SOL 3 ML NEBU INH ×3 (06:21→22:17)
[2025-05-25] MEDS: ACETYLCYSTEINE RT SOL 10% 4 ML NEBU 3 ML INH ×3 (06:21→22:17)
[2025-05-25 06:22] LABS: Basophils # (Auto) 0.0 Thou/mm3 (0.0-0.2); Basophils % (Auto) 0 % (0-2.5); Eosinophils # (Auto) 0.0 Thou/mm3 (0.0-0.5); Eosinophils % (Auto) 0 % (0-10); Hematocrit 27.0 % (41.0-53.0); Immature Granulocytes Auto 0.09 Thou/mm3 (0.00-0.00); Lymphocytes # (Auto) 1.0 Thou/mm3 (1.0-4.8); Lymphocytes % (Auto) 8 % (10-50); Mean Corpuscular HGB Conc 30.4 g/dl (31.0-37.0); Mean Corpuscular Hemoglobin 28.9 pg (25.0-35.0); Mean Corpuscular Volume 95 fL (80-100); Monocytes # (Auto) 0.4 Thou/mm3 (0.0-0.8); Monocytes % (Auto) 3 % (0-12); Neutrophils # (Auto) 11.4 Thou/mm3 (1.8-7.7); Neutrophils % (Auto) 88 % (37-80); Nucleated Red Blood Cell # 0.00 Thou/mm3 (0.00-0.00); Nucleated Red Blood Cell % 0 /100 WBC (0); Platelet Count 395 Thou/mm3 (140-440); RDW Standard Deviation 62.4 fL (35.1-43.9); Red Blood Count 2.84 Miln/mm3 (4.50-5.90); White Blood Count 12.9 Thou/mm3 (3.8-10.6)
[2025-05-25] MEDS: ACETAMINOPHEN 325 MG TABLET 650 MG PO (06:22)
[2025-05-25 06:29] LABS: Hemoglobin 8.2 g/dL (13.5-16.0)
[2025-05-25 06:58] LABS: Alanine Aminotransferase 8 U/L (10-49); Albumin, Serum 3.7 gm/dL (3.4-4.8); Albumin/Globulin Ratio 1.2 (1.2-2.2); Alkaline Phosphatase 183 U/L (46-116); Anion Gap 11 (7-16); Aspartate Amino Transferase 11 U/L (0-34); BUN/Creatinine Ratio 30 Ratio (12-20); Bilirubin,Total 0.3 mg/dL (0.3-1.2); Blood Urea Nitrogen 79 mg/dL (9-23); Calcium 9.2 mg/dL (8.3-10.6); Calcium (Corrected) 9.4 mg/dL (8.5-10.1); Carbon Dioxide 27.8 mMol/L (20.0-31.0); Chloride 99 mMol/L (98-107); Creatinine (Component) 2.6 mg/dL (0.6-1.3); Estimated Creatinine Clearance 47.1 mL/min (>60); Globulin 3.2 gm/dL (2.3-3.5); Glucose 303 mg/dL (74-106); Magnesium 2.7 mg/dL (1.6-2.6); Osmolality,Calculated 310 (275-295); Phosphorous 4.6 mg/dL (2.4-5.1); Potassium 5.1 mMol/L (3.4-5.1); Sodium 138 mMol/L (136-145); Total Protein 6.9 gm/dL (5.7-8.2); eGFR 27 See Note
--- NOTE | 2025-05-25 07:16 | ESPR_ITS ---
<Statement entered by Pavel Mendoza MD - 06/03/25 14:15> I reviewed above note and agree with findings and plans. I have also personally examined the patient with medicine team and went over assessment and plan with medical team including internet consultant and resident physician. Documentation for date of: 05/25/25 Subjective Subjective Interval history: Still pending discharge, waiting for letter of agreement between LTAC and insurance. Given Tylenol x 1 for headache last night. Patient seen and examined at bedside this AM. He was tired this morning due to lack of sleep last night. Alert and oriented x 3. Labs and vitals were reviewed. Hemoglobin improved to 8.2 after EPO yesterday. WBC continued to downtrend 12.9. BUN and creatinine improved after dialysis yesterday. No hemodialysis today. No further complaints at this time. Review of systems otherwise negative except what is mentioned above. Exam Vital Signs Temp Pulse Resp BP Pulse Ox O2 Del Method O2 Flow Rate 97.0 F 87 26 H 120/86 H 97 Mechanical Ventilation 65 05/25/25 04:00 05/25/25 06:29 05/25/25 06:29 05/25/25 04:00 05/25/25 06:29 05/25/25 04:00 05/25/25 04:00 FiO2 35 05/25/25 06:29 Narrative Exam Physical Exam: Constitutional: Alert, oriented x 3 and no acute distress. Nods and expresses self to questions, writes on white board for communication. Elderly male, morbidly obese. HEENT: Vision grossly intact. Patent nares. Trachea midline. Tracheostomy tube in situ, exit site clean. Mouth moist. Respiratory: Chest normal on inspection and decreased air entry in all lung sims, transmitted sounds and congestion on anterior chest wall, middle and upper lobes. Cardiovascular: S1 and S2 audible, RRR. No murmurs carotid bruit. No gross JVD. Abdominal: Soft, obese and non tender to palpation in all quadrants. BS +. Jejunostomy tube in situ, exit site clean Genitourinary: No bladder tenderness, no flank pain. Normal to palpation Musculoskeletal: Extremities tone within normal limits. Mild edema in right upper extremity, improved upon placing on pillow. No lower extremity edema bilaterally. Neurological: CN II - XII grossly intact. Extremity motor and sensation grossly intact. Extremities: 1+ pitting lower extremity edema bilaterally. Skin: Warm, dry and intact. Large sacral decubitus ulcer, necrotic tissue noted. No purulent drainage noted. Cleanly packed with dressings. Psychiatric: Patient has good affect, is cooperative Objective Labs 05/25/25 05:40 05/25/25 05:40 Labs: Laboratory Results - last 24 hr 05/24/25 05/25/25 05:35 05:40 WBC 12.9 H RBC 2.84 L Hgb 8.2 L Hct 27.0 L MCV 95 MCH 28.9 MCHC 30.4 L RDW Std Deviation 62.4 H Plt Count 395 Neut % (Auto) 88 H Lymph % (Auto) 8 L Pratt % (Auto) 3 Eos % (Auto) 0 Baso % (Auto) 0 Neut # (Auto) 11.4 H Lymph # (Auto) 1.0 Pratt # (Auto) 0.4 Eos # (Auto) 0.0 Baso # (Auto) 0.0 Immature Gran # (Auto) 0.09 H Absolute Nucleated RBC 0.00 Immature Gran % 1 H Nucleated RBC % 0 Sodium 140 138 Potassium 5.3 H D 5.1 Chloride 100 99 Carbon Dioxide 27.6 27.8 Anion Gap 12 11 BUN 90 H 79 H Creatinine 3.2 H 2.6 H D Estim Creat Clear Calc 38.3 L 47.1 L eGFR 21 L 27 L BUN/Creatinine Ratio 28 H 30 H Glucose 284 H 303 H Calculated Osmolality 317 H 310 H Calcium 9.1 9.2 Corrected Calcium 9.5 9.4 Phosphorus 5.4 H 4.6 Magnesium 2.3 2.7 H Total Bilirubin 0.3 0.3 AST 10 11 ALT 8 L 8 L Alkaline Phosphatase 173 H 183 H Total Protein 6.5 6.9 Albumin 3.5 3.7 Globulin 3.0 3.2 Albumin/Globulin Ratio 1.2 1.2 ABG Interpretation ABG results: 04/18/25 04/18/25 04/18/25 04:40 06:27 10:30 ABG pH 7.28 L 7.33 L 7.36 ABG pCO2 72 H* 67 H 61 H ABG pO2 132 H 60 L D 60 L ABG HCO3 34 H 35 H 34 H ABG O2 Saturation 100 H 93 93 ABG Base Excess 6 H 7 H 8 H 04/19/25 05/10/25 08:53 07:40 ABG pH 7.47 H D 7.52 H ABG pCO2 45 D 40 ABG pO2 66 L 60 L ABG HCO3 33 H 32 H ABG O2 Saturation 96 94 ABG Base Excess 8 H 8 H Quality Measures Quality Measures VTE prophylaxis Advance care planning discussed with:: patient Assessment & Plan Assessment Current Active Medications: Generic Name Dose Route Start Last Admin Trade Name Freq PRN Reason Stop Dose Admin Acetaminophen 650 mg 05/25/25 06:14 05/25/25 06:22 Acetaminophen 325 Mg Tablet PO 06/24/25 06:13 650 mg Q4HR PRN Administration Fever >100.3, pain Acetylcysteine 3 ml 05/10/25 15:00 05/25/25 06:21 Acetylcysteine Rt Gloria 10% 4 Ml Nebu INH 06/09/25 14:59 3 ml Q8HRRT KOURTNEY Administration Albuterol/Ipratropium 3 ml 05/10/25 15:00 05/25/25 06:21 Albuterol/Ipratropium (Duoneb) Rt Gloria 3 Ml Nebu INH 06/09/25 14:59 3 ml Q8HRRT KOURTNEY Administration Amiodarone HCl 200 mg 05/12/25 13:45 05/24/25 08:28 Amiodarone Hcl 200 Mg Tablet GT 06/11/25 13:44 200 mg QDAY KOURTNEY Administration Chlorhexidine Gluconate 15 ml 05/22/25 13:30 05/24/25 08:28 Chlorhexidine Mouthwash 0.12% Udc 15 Ml PO 06/21/25 13:29 15 ml DAILY KOURTNEY Administration Dextrose 25 ml 05/12/25 13:47 Dextrose 50%-Water Inj 50 Ml Syringe IV 06/11/25 13:46 Q15MIN PRN BG 50-70 responsive npo pt Dextrose 50 ml 05/12/25 13:48 Dextrose 50%-Water Inj 50 Ml Syringe IV 06/11/25 13:47 Q15MIN PRN BG <50 OR BG <70 & pt unresponsive Gabapentin 100 mg 05/20/25 14:30 05/25/25 06:12 Gabapentin 100 Mg Capsule GT 06/19/25 14:29 100 mg TID KOURTNEY Administration Glucagon 1 mg 05/12/25 13:49 Glucagon Inj 1 Mg Vial IM 06/11/25 13:48 Q15MIN PRN BG <70, and no IV access Heparin Sodium (Porcine) 2,700 unit 05/21/25 16:12 05/24/25 13:11 Heparin Sod Inj 1000 Unit/Ml Vial 10 Ml INDWELLCAT 06/04/25 16:11 2,700 unit X1 PRN Administration DIALYSIS Insulin Glargine 38 unit 05/13/25 09:00 05/24/25 08:26 Insulin Glargine (Lantus) 5 Unit/0.05 Ml (Per 5 Units) SC 06/12/25 08:59 38 unit QDAY KOURTNEY Administration Insulin Human Lispro 0 unit 05/12/25 18:00 05/25/25 06:12 Insulin Lispro (Admelog) 1 Unit/0.01 Ml Unit SC 06/11/25 17:59 4 unit Q6HR KOURTNEY Administration Protocol Lansoprazole 30 mg 05/05/25 09:00 05/24/25 08:28 Lansoprazole 30 Mg Tab.Joshua. GT 06/04/25 08:59 30 mg QDAY KOURTNEY Administration Methylprednisolone Sodium Succinate 40 mg 05/22/25 21:00 05/24/25 21:32 Methylprednisolone Sod Succ 40 Mg Vial IVP 05/29/25 20:59 40 mg BID KOURTNEY Administration Pharmacy Consult 1 each 05/14/25 08:22 Pharmacy Renal Dose Adjustment 1 Ea XX 06/13/25 08:21 PRN PRN CONSULT Sennosides 2 tab 05/02/25 09:00 05/24/25 08:29 Senna Tablet GT 06/01/25 08:59 2 tab QDAY KOURTNEY Administration Protocol Sevelamer Carbonate 0.8 gm 05/20/25 09:45 05/24/25 17:18 Sevelamer Carbonate 0.8 Gm Packet (Non-Formulary) GT 06/19/25 09:44 0.8 gm TIDWM KOURTNEY Administration Sodium Hypochlorite 473 ml 05/06/25 21:00 05/24/25 21:36 Sod Hypochlorite 1/4 Str 473 Ml Btl IRRIG 06/05/25 20:59 1 applicatio BID KOURTNEY Administration Plan Patient is a 64-year-old male with morbid obesity with subsequent obesity hypoventilation syndrome requiring tracheostomy and J-tube placement, hypertension, type 2 diabetes, atrial fibrillation, right internal jugular DVT and acute kidney injury secondary to ischemic ATN requiring multiple sessions of hemodialysis and sacral ulcers status post wound VAC currently being treated for acute on chronic hypoxic respiratory failure and ischemic ATN. S/p temporary dialysis catheter placement and hemodialysis session 05/21, continue hemodialysis as needed. Pending FADI. #Acute kidney injury-suspicion of ischemic ATN, resolved #Fluid overload #Acute on chronic hypoxic respiratory failure, improving. 04/20 ? Attempt was made to place Fuller catheter however unable to pass catheter due to significant resistance and attempt was terminated. Discussed with nursing about possibility of weighing briefs daily. Patient had temporary hemodialysis catheter placed 04/24, receiving dialysis had 1 L removed on 04/24, 2 L on 04/25, 2.14 on 04/26, 2.1 L on 04/29; temporary dialysis catheter discontinued on 05/06 Patient being followed by nephrology, nephrology agrees with diuresis for now, will need close monitoring, poor candidate for dialysis due to body habitus and also has chronic anemia with wound bleeding from sacral region-manager case management did discuss with patient in detail, he verbalizes understanding. Bumex held on 05/15 due to worsening creatinine, continues to worsen. Due to lack of improvement despite diuretic holiday, discussed with patient today need for hemodialysis in the near future. Patient initially refused but after multiple attempts of counseling and explaining risks and benefits, including , patient was eventually agreeable. S/p temporary hemodialysis catheter placement and hemodialysis session 05/21. 3 dialysis sessions since 05/21. Plan: -Nephrology Dr. Li consulted, appreciate recommendations ? No hemodialysis today -Monitor CMP -Continue antibiotics -Monitor I&O's -Avoid nephrotoxic agents -Renally dose medication #Acute on Chronic Respiratory Failure secondary to mucous plug #Healthcare-Associated Pneumonia #Leukocytosis Patient noted to have acute on chronic respiratory failure, required bronchoscopy w/ mucous plugs removed. Previous sputum Pseudomnas (04/03/2025) 05/09/2025 Bronchial washing culture grew pseudomonas, sensitive to Zosyn Vancomycin (05/09/2025-05/12/25) and doxycycline (05/12-05/13) were discontinued due to nephrotoxicity. Completed Zosyn course (05/09-05/16/25) Of note, patient has history of Pseudomonnas infection 05/21/25: Patient was having difficulty breathing this morning due to tracheostomy misalignment. Consulted ICU, plan for tracheostomy adjustment today. Plan: -s/p bronchoscopy -per ICU recommendations, continue Solumedrol 40 mg IVP BIS for 5-7 days -resume oral and tracheostomy care -Repeat bronchoscopy at a later time -Completed Levofloxacin (05/14/25-05/21/25) -Blow-by during the day, mechanical ventilation at night as needed at baseline, currently on mechanical ventilation -DuoNeb, Mucomyst and chest physiotherapy scheduled #Paroxysmal atrial fibrillation Per cardiology there is a concern of heart block, tachybradycardia syndrome as well. [id number] score of 3 points indicating 3.2% risk of stroke per year HAS-BLED: 3. High risk of major bleeding 05/13: Discussed with high school music instructor?will start on amiodarone previous dose, 200 mg daily. Per cardiology patient is a poor candidate for pacemaker placement, patient was informed at bedside by cardiology team. He verbalized understanding. Plan: - Continue amiodarone. - Cardiology consulted, appreciate recommendations - Patient will need anticoagulation, however has low hemoglobin, bleeding wound will defer anticoagulation #Congestive heart failure, HFpEF 65% #Diastolic dysfunction, grade 3 #Pulmonary hypertension #Right heart failure #BASIA/OHS #Moderate to severe a AOV calcification with no stenosis Patient has a past medical history of right heart faillure, Diastolic dysfucntion, and HFpEF 65% likely in the setting of cardiomypoathy seconadary to morbid obesity form BASIA/OHS. Given Cxr noted with prominent vascular congestion, consider repeat BNP, although hemodynamically unstable given pressors but may consider. No pheriphearl edema noted. Cxr (05/09/2025): Mild Heart Failure, Prominent vascular congestion and Moderate to large right pleural effusion Echo (04/29/2025): Normal LV size and function. Estimated EF of 65%. Grade III Diastolic Dysfunction.Right ventricle is dilated with mild RV dysfunction RVSP 47mmHg. RAP 15mmHg.Severe biatrial dilation.Moderate to Severe AOV calcification with no stenosis <ild tricuspid regurgitation. No pericardial effusion. Plan -On hemodialysis as above -Recommended patient to sit up in bed to help relieve IVC pressure -Cardiology consulted -Patient 1500 cc/day fluid restriction, daily weights, tube feeds resumed -K >4 and Mg >2 #Decubitus ulcer status post excisional debridement of sacral decubitus ulcer Recent debridement of large decubitus ulcer on 05/02/2025 likely secondary to morbid obestiy and lack of mobility. 04/29: excisional debridement of sacral decubitus ulcer, washout and placement of wound VAC. 05/02: Patient had significant bleeding overnight, wound VAC leaked. Hemoglobin stable this morning, patient's bleeding from wound overnight was controlled with suture ligation. Wound was assessed by general surgeon, patient was transitioned back to red dry dressings daily. Plan: -Wound care following #Jejunostomy tube #Abdominal abscess - resolved Patient report said that there was an intra-abdominal abscess that have could have been from a perforated ulcer in the past See also note reviewed, mentions that patient likely had a marginal ulcer, but also was not seen on EGD without, currently patient has no abdominal tenderness and is totally asymptomatic. No current drain at this time Patient is status post laparoscopic J-tube placement and is currently on feeds Patient will continue to have this tube and will likely go to a long-term care facility with this until patient can swallow safely Plan: ? Monitor vitals closely #Normocytic normochromic anemia - stable Multifactorial. Patient's baseline hemoglobin throughout the hospitalization has been in the range 9?11, patient did have some bleeding from wound VAC site on 05/02 which was controlled by suture ligation by general surgery. Had recurrent bleeding and eventually heparin drip was held. Hgb continues to hover around 7- 8. - Patient is a [employer], denies any blood transfusion/blood products - Monitor CBC #Right internal jugular venous thrombosis #Right arm swelling Continuing free water flushes, patient has gone multiple days of heparin drip since 04/01 Right upper extremity ultrasound May 04-shows right IJ thrombus Plan: ? Continue to hold heparin drip due to recurrent sacral ulcer bleeding #Morbid obesity #DM2 A1C 7.6 on 03/05/2025 Patient has a BMI of 79.5->68.7 Attempted to prescribe tirzepatide to outside pharmacy to bring inpatient however no one is able to pick it up for the patient. Plan: - ISS scale 2 - Hypoglycemia protocol - 38 units of Lantus. Health Maintenance Disposition: Pending LTAC DVT prophylaxis: SCDs, patient is [employer] and has bleeding sacral wound GI prophylaxis: Protonix Diet: 2Cal Tube Feeds with 30 cc/hour water flush CODE STATUS: Full code Patient plan of care was discussed with the attending physician, Dr. Mendoza. Meena Dutta, PGY-1
[2025-05-25] MEDS: SEVELAMER CARBONATE 0.8 GM PACKET (NON-FORMULARY) GT ×3 (07:57→18:04)
[2025-05-25] MEDS: LANSOPRAZOLE 30 MG TAB.RAP.DR GT (08:05)
[2025-05-25] MEDS: CHLORHEXIDINE MOUTHWASH 0.12% UDC 15 ML PO (08:05)
[2025-05-25] MEDS: SOD HYPOCHLORITE 1/4 STR 473 ML BTL IRRIG ×2 (08:05→21:43)
[2025-05-25] MEDS: INSULIN GLARGINE (Lantus) 5 UNIT/0.05 ML (PER 5 UNITS) 38 UNIT SC (08:07)
[2025-05-25] MEDS: AMIODARONE HCL 200 MG TABLET GT (08:10)
--- NOTE | 2025-05-25 09:01 | ESPR_ITS ---
Documentation for date of: 05/25/25 Subjective Subjective Interval history: Mr. Ortega is a 64-year-old male with a past medical history of type 2 diabetes mellitus, history of ATN, A-fib, hypertension, severe right-sided heart failure, HFpEF, severe BASIA, status post tracheostomy and jejunostomy, patient was previously admitted here for hypoxic respiratory failure requiring mechanical ventilation, was later transferred out to [facility] for jejunostomy tube placement, complicated by abdominal abscess, patient is now transferred back to [facility] for further management. The patient was initially noted to have pneumonia and acute hypoxic respiratory failure, requiring mechanical ventilation, nephrology was consulted as patient's renal function continues to worsen. Patient had previously required hemodialysis for ATN, but is a poor dialysis candidate outpatient. Patient did not have any acute events overnight. Patient does not have any complaints/concerns. Planning for temporary HD catheter placement tomorrow. 05/20/2025 patient currently seen in telemetry. No acute overnight events. Took over the care from Dr. Minor. Urine output seems to be acceptable. However azotemia persists. Had a long conversation with the patient and he agreed for temporary dialysis. Labs remarkable for Hgb 7.9, BUN 127, Cr 4.3, eGFR 15, Phos 6.6 05/21/2025 No acute overnight events. Patient states he is doing okay and has no new complaints/concerns. Urine output of 2.2L last 24 hours. However azotemia persists. Temporary dialysis catheter today continues to be the plan. Labs remarkable for Hgb 7.7, BUN 123, Cr 4.4, eGFR 14, Phos 6.6 05/22/2025 No acute overnight events. Patient states he is currently doing okay and has no new complaints/concerns. Urine output 1695 last 24 hours. Patient received dialysis yesterday and improvement in BUN, creatinine and eGFR. Labs are remarkable for Hgb 7.6, BUN 87, Cr 3.3, eGFR 20, Phos 5.9 (6.6). 05/23/2025 No acute overnight events. Patient states he is currently doing okay and has no new complaints/concerns. Urine output 1694 last 24 hours with 1312 ml output from dialysis yesterday. Patient received dialysis yesterday with continued improvement in BUN, creatinine and eGFR. Labs are remarkable for Hgb 7.3, BUN 71, Cr 3.0, glucose 240, eGFR 22, Ca 9.1, Phos 5.0, Mg 2.3 05/24/2025 No acute overnight events. Patient denies any new complaints/concerns. Urine output 887 ml last 24 hours. The plan is for the patient to receive dialysis today; kidney function tests continue to improve with dialysis. Patient denies any chest pain, shortness of breath, abdominal pain. 05/25/2025: No acute overnight events. Patient seen and examined at bedside. Dialysis done yesterday with -2.4L removed. Patient is feeling well today. No new complaints. Denies chest pain or fever. Exam Vital Signs Temp Pulse Resp BP Pulse Ox O2 Del Method O2 Flow Rate 97.2 F 99 18 113/67 97 Mechanical Ventilation 65 05/25/25 08:00 05/25/25 08:10 05/25/25 08:00 05/25/25 08:10 05/25/25 08:00 05/25/25 08:00 05/25/25 08:00 FiO2 35 05/25/25 08:00 Narrative Exam GENERAL APPEARANCE: Awake, alert and oriented. No acute distress. NECK: Neck supple, no JVD or bruit, R IJ dialysis catheter CARDIOVASCULAR: Heart rate regular, no murmurs LUNGS/CHEST: Lungs CTAB ABDOMEN: Soft, nontender, nondistended. No masses. Normal bowel sounds. EXTREMITIES: 2+ edema in the lower extremities, mild upper extremity edema SKIN/MSK: Skin in warm, dry and intact without rashes or lesions. Appropriate color for ethnicity. Nailbeds pink with no cyanosis or clubbing. PSYCHIATRIC: Appropriate mood and affect. NEUROLOGICAL : No neurological deficits Objective Labs 05/26/25 05:29 05/26/25 05:29 Labs: Laboratory Results - last 24 hr 05/25/25 05:40 WBC 12.9 H RBC 2.84 L Hgb 8.2 L Hct 27.0 L MCV 95 MCH 28.9 MCHC 30.4 L RDW Std Deviation 62.4 H Plt Count 395 Neut % (Auto) 88 H Lymph % (Auto) 8 L [place] % (Auto) 3 Eos % (Auto) 0 Baso % (Auto) 0 Neut # (Auto) 11.4 H Lymph # (Auto) 1.0 [place] # (Auto) 0.4 Eos # (Auto) 0.0 Baso # (Auto) 0.0 Immature Gran # (Auto) 0.09 H Absolute Nucleated RBC 0.00 Immature Gran % 1 H Nucleated RBC % 0 Sodium 138 Potassium 5.1 Chloride 99 Carbon Dioxide 27.8 Anion Gap 11 BUN 79 H Creatinine 2.6 H D Estim Creat Clear Calc 47.1 L eGFR 27 L BUN/Creatinine Ratio 30 H Glucose 303 H Calculated Osmolality 310 H Calcium 9.2 Corrected Calcium 9.4 Phosphorus 4.6 Magnesium 2.7 H Total Bilirubin 0.3 AST 11 ALT 8 L Alkaline Phosphatase 183 H Total Protein 6.9 Albumin 3.7 Globulin 3.2 Albumin/Globulin Ratio 1.2 ABG Interpretation ABG results: 04/18/25 04/18/25 04/18/25 04:40 06:27 10:30 ABG pH 7.28 L 7.33 L 7.36 ABG pCO2 72 H* 67 H 61 H ABG pO2 132 H 60 L D 60 L ABG HCO3 34 H 35 H 34 H ABG O2 Saturation 100 H 93 93 ABG Base Excess 6 H 7 H 8 H 04/19/25 05/10/25 08:53 07:40 ABG pH 7.47 H D 7.52 H ABG pCO2 45 D 40 ABG pO2 66 L 60 L ABG HCO3 33 H 32 H ABG O2 Saturation 96 94 ABG Base Excess 8 H 8 H Quality Measures Quality Measures VTE prophylaxis Advance care planning discussed with:: patient Assessment & Plan Assessment Current Active Medications: Generic Name Dose Route Start Last Admin Trade Name Freq PRN Reason Stop Dose Admin Acetaminophen 650 mg 05/25/25 06:14 05/25/25 06:22 Acetaminophen 325 Mg Tablet PO 06/24/25 06:13 650 mg Q4HR PRN Administration Fever >100.3, pain Acetylcysteine 3 ml 05/10/25 15:00 05/25/25 06:21 Acetylcysteine Rt Gloria 10% 4 Ml Nebu INH 06/09/25 14:59 3 ml Q8HRRT KOURTNEY Administration Albuterol/Ipratropium 3 ml 05/10/25 15:00 05/25/25 06:21 Albuterol/Ipratropium (Duoneb) Rt Gloria 3 Ml Nebu INH 06/09/25 14:59 3 ml Q8HRRT KOURTNEY Administration Amiodarone HCl 200 mg 05/12/25 13:45 05/25/25 08:10 Amiodarone Hcl 200 Mg Tablet GT 06/11/25 13:44 200 mg QDAY KOURTNEY Administration Chlorhexidine Gluconate 15 ml 05/22/25 13:30 05/25/25 08:05 Chlorhexidine Mouthwash 0.12% Udc 15 Ml PO 06/21/25 13:29 15 ml DAILY KOURTNEY Administration Dextrose 25 ml 05/12/25 13:47 Dextrose 50%-Water Inj 50 Ml Syringe IV 06/11/25 13:46 Q15MIN PRN BG 50-70 responsive npo pt Dextrose 50 ml 05/12/25 13:48 Dextrose 50%-Water Inj 50 Ml Syringe IV 06/11/25 13:47 Q15MIN PRN BG <50 OR BG <70 & pt unresponsive Gabapentin 100 mg 05/20/25 14:30 05/25/25 06:12 Gabapentin 100 Mg Capsule GT 06/19/25 14:29 100 mg TID KOURTNEY Administration Glucagon 1 mg 05/12/25 13:49 Glucagon Inj 1 Mg Vial IM 06/11/25 13:48 Q15MIN PRN BG <70, and no IV access Heparin Sodium (Porcine) 2,700 unit 05/21/25 16:12 05/24/25 13:11 Heparin Sod Inj 1000 Unit/Ml Vial 10 Ml INDWELLCAT 06/04/25 16:11 2,700 unit X1 PRN Administration DIALYSIS Insulin Glargine 38 unit 05/13/25 09:00 05/25/25 08:07 Insulin Glargine (Lantus) 5 Unit/0.05 Ml (Per 5 Units) SC 06/12/25 08:59 38 unit QDAY KOURTNEY Administration Insulin Human Lispro 0 unit 05/12/25 18:00 05/25/25 06:12 Insulin Lispro (Admelog) 1 Unit/0.01 Ml Unit SC 06/11/25 17:59 4 unit Q6HR KOURTNEY Administration Protocol Lansoprazole 30 mg 05/05/25 09:00 05/25/25 08:05 Lansoprazole 30 Mg Tab. GT 06/04/25 08:59 30 mg QDAY KOURTNEY Administration Methylprednisolone Sodium Succinate 40 mg 05/22/25 21:00 05/25/25 08:04 Methylprednisolone Sod Succ 40 Mg Vial IVP 05/29/25 20:59 40 mg BID KOURTNEY Administration Pharmacy Consult 1 each 05/14/25 08:22 Pharmacy Renal Dose Adjustment 1 Ea XX 06/13/25 08:21 PRN PRN CONSULT Sennosides 2 tab 05/02/25 09:00 05/25/25 08:05 Senna Tablet GT 06/01/25 08:59 2 tab QDAY KOURTNEY Administration Protocol Sevelamer Carbonate 0.8 gm 05/20/25 09:45 05/25/25 07:57 Sevelamer Carbonate 0.8 Gm Packet (Non-Formulary) GT 06/19/25 09:44 0.8 gm TIDWM KOURTNEY Administration Sodium Hypochlorite 473 ml 05/06/25 21:00 05/25/25 08:05 Sod Hypochlorite 1/4 Str 473 Ml Btl IRRIG 06/05/25 20:59 473 applicatio BID KOURTNEY Administration Plan In summary, Mr. Ortega is a 64-year-old male with past medical history of DM2, hypertension, A-fib, and Jehova's witness was admitted to the ICU on 02/27/2025 for shock and acute on chronic hypoxic respiratory failure. He is s/p laparoscopic J-tube placement from [facility]. #Acute kidney injury likely 2/2 Ischemic ATN #Fluid overload Patient was admitted with acute kidney injury likely ischemic acute tubular necrosis, received temporary hemodialysis catheter placed 04/24, receiving dialysis had 1 L removed on 04/24, 2 L on 04/25, 2.14 on 04/26, 2.1 L on 04/29; temporary dialysis catheter discontinued on 05/06. Dialysis done 05/22, 05/24 (-2.4L) Plan: -Continue MWF dialysis schedule (next dialysis M) -Monitor I&O's -Avoid nephrotoxic agents -Renally dose medication #Acute on Chronic Respiratory Failure secondary to mucous plug #Healthcare-Associated Pneumonia #Leukocytosis #Paroxysmal atrial fibrillation #Right diastolic CHF #Decubitus ulcer #Chronic back pain #Jejunostomy tube #Normocytic normochromic anemia #Acute on Chronic Hypoxic Hypercapnic Respiratory Failure #Obesity hypoventilation syndrome and obstructive sleep apnea #Tracheostomy #Hx of A-fib #Right internal jugular venous thrombosis #Right arm swelling #Morbid obesity #DM2 Above handled by primary hospitalist team Patient seen and care discussed with my attending physician, Dr. Teressa Dutta DO, PGY-1 Attending Provider Attestation/Addendum Patient seen and examined with resident physician Dr. Dutta. Note reviewed, agree with findings and recommendations. BUN/creatinine elevated again- ?? going into ATN. Edema ++ Labs 3 times weekly with pediatric tubes due to his Sabianism status. Had a long conversation with the patient-agreed for temporary dialysis. Unfortunately IR cannot do permanent catheter -- agreed to do temporary catheter due to his BMI. Dialysis catheter placed by Dr. Galicia in the right IJ. Patient received dialysis session on Tuesday. Next dialysis scheduled for Tuesday He will need LTAC placement with dialysis.
--- NOTE | 2025-05-25 16:15 | ESPR_ITS ---
<Statement entered by Lenora John MD - 05/26/25 18:00> I personally examined the patient evaluated and telemetry patient is clinically stable remains in atrial fibrillation rate controlled well continue amiodarone for now. I reviewed the progress note all essential components of the resident physician PGY 2 Dr. Kirk Ahumada agree with the treatment plan recommendation as documented Documentation for date of: 05/25/25 Subjective Subjective Interval history: Patient is seen and examined at bedside No acute overnight events. Still on mechanical ventilator, SIMV mode Vitals are stable and patient is still in atrial fibrillation with controlled ventricular rate, 100 to 110 bpm Labs showing downtrending leukocytosis Recommend to continue amiodarone 200 Mg through G-tube daily Exam Vital Signs Temp Pulse Resp BP Pulse Ox O2 Del Method O2 Flow Rate 97.2 F 89 27 H 113/67 99 Mechanical Ventilation 65 05/25/25 08:00 05/25/25 14:52 05/25/25 14:52 05/25/25 08:10 05/25/25 14:52 05/25/25 08:00 05/25/25 08:00 FiO2 35 05/25/25 14:52 Narrative Exam General: Awake. obese. Tracheostomy tube insitu on SIMV mode HEENT: Normocephalic, atraumatic, mucous membranes moist. Heart: IRRegular rate and rhythm, no murmurs. Lungs: Clear to auscultation with no wheezing or crackles. But noted decreased breath sounds bilaterally in view of body habitus. noted right IJV catheter on right side Abdomen: Soft, nondistended, nontender, positive bowel sounds. ?No guarding or rebound tenderness. Neurologic: Alert and oriented x3, no gross neurological deficit, and patient able to move all 4 extremities. Extremities: No edema. Skin: Large sacral ulcer in the gluteal region, Decubitus Grade III/IV Objective Labs 05/25/25 05:40 05/25/25 05:40 Labs: Laboratory Results - last 24 hr 05/25/25 05:40 WBC 12.9 H RBC 2.84 L Hgb 8.2 L Hct 27.0 L MCV 95 MCH 28.9 MCHC 30.4 L RDW Std Deviation 62.4 H Plt Count 395 Neut % (Auto) 88 H Lymph % (Auto) 8 L [place] % (Auto) 3 Eos % (Auto) 0 Baso % (Auto) 0 Neut # (Auto) 11.4 H Lymph # (Auto) 1.0 [place] # (Auto) 0.4 Eos # (Auto) 0.0 Baso # (Auto) 0.0 Immature Gran # (Auto) 0.09 H Absolute Nucleated RBC 0.00 Immature Gran % 1 H Nucleated RBC % 0 Sodium 138 Potassium 5.1 Chloride 99 Carbon Dioxide 27.8 Anion Gap 11 BUN 79 H Creatinine 2.6 H D Estim Creat Clear Calc 47.1 L eGFR 27 L BUN/Creatinine Ratio 30 H Glucose 303 H Calculated Osmolality 310 H Calcium 9.2 Corrected Calcium 9.4 Phosphorus 4.6 Magnesium 2.7 H Total Bilirubin 0.3 AST 11 ALT 8 L Alkaline Phosphatase 183 H Total Protein 6.9 Albumin 3.7 Globulin 3.2 Albumin/Globulin Ratio 1.2 ABG Interpretation ABG results: 04/18/25 04/18/25 04/18/25 04:40 06:27 10:30 ABG pH 7.28 L 7.33 L 7.36 ABG pCO2 72 H* 67 H 61 H ABG pO2 132 H 60 L D 60 L ABG HCO3 34 H 35 H 34 H ABG O2 Saturation 100 H 93 93 ABG Base Excess 6 H 7 H 8 H 04/19/25 05/10/25 08:53 07:40 ABG pH 7.47 H D 7.52 H ABG pCO2 45 D 40 ABG pO2 66 L 60 L ABG HCO3 33 H 32 H ABG O2 Saturation 96 94 ABG Base Excess 8 H 8 H Quality Measures Quality Measures VTE prophylaxis Advance care planning discussed with:: patient Assessment & Plan Assessment Current Active Medications: Generic Name Dose Route Start Last Admin Trade Name Freq PRN Reason Stop Dose Admin Acetaminophen 650 mg 05/25/25 06:14 05/25/25 06:22 Acetaminophen 325 Mg Tablet PO 06/24/25 06:13 650 mg Q4HR PRN Administration Fever >100.3, pain Acetylcysteine 3 ml 05/10/25 15:00 05/25/25 14:52 Acetylcysteine Rt Gloria 10% 4 Ml Nebu INH 06/09/25 14:59 3 ml Q8HRRT KOURTNEY Administration Albuterol/Ipratropium 3 ml 05/10/25 15:00 05/25/25 14:52 Albuterol/Ipratropium (Duoneb) Rt Gloria 3 Ml Nebu INH 06/09/25 14:59 3 ml Q8HRRT KOURTNEY Administration Amiodarone HCl 200 mg 05/12/25 13:45 05/25/25 08:10 Amiodarone Hcl 200 Mg Tablet GT 06/11/25 13:44 200 mg QDAY KOURTNEY Administration Chlorhexidine Gluconate 15 ml 05/22/25 13:30 05/25/25 08:05 Chlorhexidine Mouthwash 0.12% Udc 15 Ml PO 06/21/25 13:29 15 ml DAILY KOURTNEY Administration Dextrose 25 ml 05/12/25 13:47 Dextrose 50%-Water Inj 50 Ml Syringe IV 06/11/25 13:46 Q15MIN PRN BG 50-70 responsive npo pt Dextrose 50 ml 05/12/25 13:48 Dextrose 50%-Water Inj 50 Ml Syringe IV 06/11/25 13:47 Q15MIN PRN BG <50 OR BG <70 & pt unresponsive Gabapentin 100 mg 05/20/25 14:30 05/25/25 13:56 Gabapentin 100 Mg Capsule GT 06/19/25 14:29 100 mg TID KOURTNEY Administration Glucagon 1 mg 05/12/25 13:49 Glucagon Inj 1 Mg Vial IM 06/11/25 13:48 Q15MIN PRN BG <70, and no IV access Heparin Sodium (Porcine) 2,700 unit 05/21/25 16:12 05/24/25 13:11 Heparin Sod Inj 1000 Unit/Ml Vial 10 Ml INDWELLCAT 06/04/25 16:11 2,700 unit X1 PRN Administration DIALYSIS Insulin Glargine 38 unit 05/13/25 09:00 05/25/25 08:07 Insulin Glargine (Lantus) 5 Unit/0.05 Ml (Per 5 Units) SC 06/12/25 08:59 38 unit QDAY KOURTNEY Administration Insulin Human Lispro 0 unit 05/12/25 18:00 05/25/25 12:03 Insulin Lispro (Admelog) 1 Unit/0.01 Ml Unit SC 06/11/25 17:59 5 unit Q6HR KOURTNEY Administration Protocol Lansoprazole 30 mg 05/05/25 09:00 05/25/25 08:05 Lansoprazole 30 Mg Tab.Joshua. GT 06/04/25 08:59 30 mg QDAY KOURTNEY Administration Methylprednisolone Sodium Succinate 40 mg 05/22/25 21:00 05/25/25 08:04 Methylprednisolone Sod Succ 40 Mg Vial IVP 05/29/25 20:59 40 mg BID KOURTNEY Administration Pharmacy Consult 1 each 05/14/25 08:22 Pharmacy Renal Dose Adjustment 1 Ea XX 06/13/25 08:21 PRN PRN CONSULT Sennosides 2 tab 05/02/25 09:00 05/25/25 08:05 Senna Tablet GT 06/01/25 08:59 2 tab QDAY KOURTNEY Administration Protocol Sevelamer Carbonate 0.8 gm 05/20/25 09:45 05/25/25 12:07 Sevelamer Carbonate 0.8 Gm Packet (Non-Formulary) GT 06/19/25 09:44 0.8 gm TIDWM KOURTNEY Administration Sodium Hypochlorite 473 ml 05/06/25 21:00 05/25/25 08:05 Sod Hypochlorite 1/4 Str 473 Ml Btl IRRIG 06/05/25 20:59 473 applicatio BID KOURTNEY Administration Plan Mr. Ortega is a 64-year-old male, Buddhist with a past medical history of hypertension, diabetes mellitus type 2, history of atrial fibrillation, CHF HFpEF 65%, grade 3 diastolic dysfunction, right heart failure, RSVP 47, moderate to severe ALB calsifications with no stenosis, status post tracheostomy, s/p PEG Tube at [facility], bariatric team, history of dyspahagia, extensive decubitus ulcers, CKD, history of anemia, history of Diego-en- Y gastric bypass, BASIA/OHS, and morbid obesity. Patient was upgraded to ICU for a third time with in acute respiratory respiratory failure secondary to mucous plug and shock, likely cardiogenic shock secondary to complete heart block requiring pressors and downgraded again # A-fib with RVR - s/p cardioversion ---> CVR # Bradycardia and questionable complete heart block, resolved - Patient was hypoxic and was transferred to the ICU on 05/09/2025. - Cardiology was consulted 05/09/2025 for significant bradycardia requiring external temporary transcutaneous pacing. - Plan was to place a temporary transvenous pacemaker if the patient continues to be bradycardic as he was 100% dependent on the transcutaneous pacing. - Bronchoscopy was performed which showed small mucous plug which was removed and patient rhythm was back to his atrial fibrillation with RVR. - Patient was on dopamine at that point of time. Patient blood pressure was on the lower side and was unstable and required cardioversion x 1. - Patient was on levophed and phenylephrine for a short period of time. - Patient is presently ventilator dependent and has a tracheostomy in place along with a jejunostomy. Plan - Recommend to continue telemetry monitoring - In view of ongoing sacral ulcer with recurrent infections, pacemaker placement cannot be done. But fortunately patient did not have any further episodes of bradycardia. So no need of pacemaker placement as of now - Recommended to continue amiodarone 200 Mg G-tube once daily - As patient had large decubitus ulcer and has tendency to bleed, anticoagulation is held for now # H/O CHF, HFpEF 65% #Diastolic dysfunction, grade 3 #Pulmonary hypertension #BASIA/OHS #Moderate to severe a AOV calcification with no stenosis #Moderate Right Pleural Effusion - Patient has a past medical history of right heart failure, Diastolic dysfunction, and HFpEF 65% likely in the setting of cardiomypoathy secondary to morbid obesity form BASIA/OHS. - Reyno Mary 03/19/2025: RAP 8, PAP 27, PCWP 7. - Echo (04/29/2025): Normal LV size and function. Estimated EF of 65%. Grade III Diastolic Dysfunction.Right ventricle is dilated with mild RV dysfunction RVSP 47mmHg. RAP 15mmHg.Severe biatrial dilation.Moderate to Severe AOV calcification with no stenosis <ild tricuspid regurgitation. No pericardial effusion. - Echo (05/14/2025) : Normal LV size and function. Estimated EF is 55 to 60%. Severely RA dilated right ventricle as well as right atrium. IVS flattening noted both in systole and diastole indicating both pressure and volume overload Plan -Recommended to hold diuresis for now in view of uptrending BUN and creatinine -Pt will be getting dialysis on 05/21/25 -K >4 and Mg >2 #Acute on Chronic Respiratory Failure secondary to mucus plug #Healthcare-Associated Pneumonia #Leukocytosis #Large Sacral Decubitus Ulcer s/p excisional debridement (05/02/2025) #CKD stage III #Jejunostomy #History of abdominal abscess s/p percutaneous drainage #Diabetes Mellitus Type 2 non insulin depedent #Normocytic Anemia Management of rest of the medical conditions as per primary team and other consultants. Thank you for the consult and allowing us to participate in the care of the patient. Cardiology will continue to follow. Patient plan of care was discussed with the [facility] Dr. Alvaro Ahumada, PGY2
[2025-05-26] VITALS (15 sets, daily range): BP systolic 109–121; BP diastolic 77–88; PULSE 82–125; RESP 12–31; TEMP 36.2–36.6; O2SAT 94–99; BMI 68.6
[2025-05-26] MEDS: INSULIN LISPRO (AdmeLOG) 1 UNIT/0.01 ML UNIT SC ×4 (00:27→18:07)
[2025-05-26] MEDS: GABAPENTIN 100 MG CAPSULE GT ×3 (06:19→22:14)
[2025-05-26 06:38] LABS: Basophils # (Auto) 0.0 Thou/mm3 (0.0-0.2); Basophils % (Auto) 0 % (0-2.5); Eosinophils # (Auto) 0.0 Thou/mm3 (0.0-0.5); Eosinophils % (Auto) 0 % (0-10); Hematocrit 24.7 % (41.0-53.0); Immature Granulocytes Auto 0.04 Thou/mm3 (0.00-0.00); Lymphocytes # (Auto) 0.5 Thou/mm3 (1.0-4.8); Lymphocytes % (Auto) 5 % (10-50); Mean Corpuscular HGB Conc 31.2 g/dl (31.0-37.0); Mean Corpuscular Hemoglobin 29.1 pg (25.0-35.0); Mean Corpuscular Volume 93 fL (80-100); Monocytes # (Auto) 0.4 Thou/mm3 (0.0-0.8); Monocytes % (Auto) 4 % (0-12); Neutrophils # (Auto) 9.6 Thou/mm3 (1.8-7.7); Neutrophils % (Auto) 90 % (37-80); Nucleated Red Blood Cell # 0.00 Thou/mm3 (0.00-0.00); Nucleated Red Blood Cell % 0 /100 WBC (0); Platelet Count 394 Thou/mm3 (140-440); RDW Standard Deviation 60.6 fL (35.1-43.9); Red Blood Count 2.65 Miln/mm3 (4.50-5.90); White Blood Count 10.6 Thou/mm3 (3.8-10.6)
[2025-05-26 06:44] LABS: Hemoglobin 7.7 g/dL (13.5-16.0)
[2025-05-26] MEDS: ACETYLCYSTEINE RT SOL 10% 4 ML NEBU 3 ML INH ×3 (07:15→22:40)
[2025-05-26] MEDS: ALBUTEROL/IPRATROPIUM (Duoneb) RT SOL 3 ML NEBU INH ×4 (07:15→22:40)
[2025-05-26 07:19] LABS: Alanine Aminotransferase 9 U/L (10-49); Albumin, Serum 3.5 gm/dL (3.4-4.8); Albumin/Globulin Ratio 1.2 (1.2-2.2); Alkaline Phosphatase 159 U/L (46-116); Anion Gap 14 (7-16); Aspartate Amino Transferase 12 U/L (0-34); BUN/Creatinine Ratio 30 Ratio (12-20); Bilirubin,Total 0.4 mg/dL (0.3-1.2); Blood Urea Nitrogen 86 mg/dL (9-23); Calcium 9.3 mg/dL (8.3-10.6); Calcium (Corrected) 9.7 mg/dL (8.5-10.1); Carbon Dioxide 25.9 mMol/L (20.0-31.0); Chloride 98 mMol/L (98-107); Creatinine (Component) 2.9 mg/dL (0.6-1.3); Estimated Creatinine Clearance 42.3 mL/min (>60); Globulin 3.0 gm/dL (2.3-3.5); Glucose 351 mg/dL (74-106); Magnesium 2.3 mg/dL (1.6-2.6); Osmolality,Calculated 315 (275-295); Phosphorous 4.6 mg/dL (2.4-5.1); Potassium 5.5 mMol/L (3.4-5.1); Sodium 138 mMol/L (136-145); Total Protein 6.5 gm/dL (5.7-8.2); eGFR 23 See Note
[2025-05-26] MEDS: ALBUTEROL RT 2.5 MG/0.5 ML NEBU 10 MG INH (09:08)
[2025-05-26] MEDS: INSULIN HUM REGULAR 1 UNIT/0.01 ML (PER UNIT) 10 UNIT IV (09:15)
[2025-05-26] MEDS: AMIODARONE HCL 200 MG TABLET GT (09:15)
[2025-05-26] MEDS: LANSOPRAZOLE 30 MG TAB.RAP.DR GT (09:15)
[2025-05-26] MEDS: INSULIN GLARGINE (Lantus) 5 UNIT/0.05 ML (PER 5 UNITS) 45 UNIT SC (09:18)
[2025-05-26] MEDS: SOD POLYSTYRENE SULFON SUSP 15 GM/60 ML BTL 30 GM PO (09:19)
[2025-05-26] MEDS: SOD HYPOCHLORITE 1/4 STR 473 ML BTL IRRIG ×2 (09:23→22:14)
[2025-05-26] MEDS: SEVELAMER CARBONATE 0.8 GM PACKET (NON-FORMULARY) GT ×3 (09:23→17:39)
--- NOTE | 2025-05-26 10:11 | ESPR_ITS ---
Documentation for date of: 05/26/25 Subjective Subjective Interval history: Mr. Ortega is a 64-year-old male with a past medical history of type 2 diabetes mellitus, history of ATN, A-fib, hypertension, severe right-sided heart failure, HFpEF, severe BASIA, status post tracheostomy and jejunostomy, patient was previously admitted here for hypoxic respiratory failure requiring mechanical ventilation, was later transferred out to [facility] for jejunostomy tube placement, complicated by abdominal abscess, patient is now transferred back to [facility] for further management. The patient was initially noted to have pneumonia and acute hypoxic respiratory failure, requiring mechanical ventilation, nephrology was consulted as patient's renal function continues to worsen. Patient had previously required hemodialysis for ATN, but is a poor dialysis candidate outpatient. Patient did not have any acute events overnight. Patient does not have any complaints/concerns. Planning for temporary HD catheter placement tomorrow. 05/20/2025 patient currently seen in telemetry. No acute overnight events. Took over the care from Dr. Minor. Urine output seems to be acceptable. However azotemia persists. Had a long conversation with the patient and he agreed for temporary dialysis. Labs remarkable for Hgb 7.9, BUN 127, Cr 4.3, eGFR 15, Phos 6.6 05/21/2025 No acute overnight events. Patient states he is doing okay and has no new complaints/concerns. Urine output of 2.2L last 24 hours. However azotemia persists. Temporary dialysis catheter today continues to be the plan. Labs remarkable for Hgb 7.7, BUN 123, Cr 4.4, eGFR 14, Phos 6.6 05/22/2025 No acute overnight events. Patient states he is currently doing okay and has no new complaints/concerns. Urine output 1695 last 24 hours. Patient received dialysis yesterday and improvement in BUN, creatinine and eGFR. Labs are remarkable for Hgb 7.6, BUN 87, Cr 3.3, eGFR 20, Phos 5.9 (6.6). 05/23/2025 No acute overnight events. Patient states he is currently doing okay and has no new complaints/concerns. Urine output 1694 last 24 hours with 1312 ml output from dialysis yesterday. Patient received dialysis yesterday with continued improvement in BUN, creatinine and eGFR. Labs are remarkable for Hgb 7.3, BUN 71, Cr 3.0, glucose 240, eGFR 22, Ca 9.1, Phos 5.0, Mg 2.3 05/24/2025 No acute overnight events. Patient denies any new complaints/concerns. Urine output 887 ml last 24 hours. The plan is for the patient to receive dialysis today; kidney function tests continue to improve with dialysis. Patient denies any chest pain, shortness of breath, abdominal pain. 05/25/2025: No acute overnight events. Patient seen and examined at bedside. Dialysis done yesterday with -2.4L removed. Patient is feeling well today. No new complaints. Denies chest pain or fever. 05/26/2025: No acute overnight events. Patient seen and examined at bedside. Plan for dialysis Tuesday. Patient is feeling well today. No new complaints. Denies fever, chest pain, palpitations, shortness of breath. Exam Vital Signs Temp Pulse Resp BP Pulse Ox O2 Del Method O2 Flow Rate 97.1 F 120 H 28 H 109/77 99 Mechanical Ventilation 65 05/26/25 08:00 05/26/25 09:15 05/26/25 09:13 05/26/25 09:15 05/26/25 09:13 05/26/25 08:00 05/26/25 04:00 FiO2 35 05/26/25 09:13 Narrative Exam GENERAL APPEARANCE: Awake, alert and oriented. No acute distress. NECK: Neck supple, no JVD or bruit, R IJ dialysis catheter CARDIOVASCULAR: Heart rate regular, no murmurs LUNGS/CHEST: Lungs CTAB ABDOMEN: Soft, nontender, nondistended. No masses. Normal bowel sounds. EXTREMITIES: 2+ edema in the lower extremities, mild upper extremity edema SKIN/MSK: Skin in warm, dry and intact without rashes or lesions. Appropriate color for ethnicity. Nailbeds pink with no cyanosis or clubbing. PSYCHIATRIC: Appropriate mood and affect. NEUROLOGICAL : No neurological deficits Objective Labs 05/26/25 05:29 05/26/25 05:29 Labs: Laboratory Results - last 24 hr 05/26/25 05:29 WBC 10.6 RBC 2.65 L Hgb 7.7 L Hct 24.7 L MCV 93 MCH 29.1 MCHC 31.2 RDW Std Deviation 60.6 H Plt Count 394 Neut % (Auto) 90 H Lymph % (Auto) 5 L [place] % (Auto) 4 Eos % (Auto) 0 Baso % (Auto) 0 Neut # (Auto) 9.6 H Lymph # (Auto) 0.5 L [place] # (Auto) 0.4 Eos # (Auto) 0.0 Baso # (Auto) 0.0 Immature Gran # (Auto) 0.04 H Absolute Nucleated RBC 0.00 Immature Gran % 0 Nucleated RBC % 0 Sodium 138 Potassium 5.5 H Chloride 98 Carbon Dioxide 25.9 Anion Gap 14 BUN 86 H Creatinine 2.9 H Estim Creat Clear Calc 42.3 L eGFR 23 L BUN/Creatinine Ratio 30 H Glucose 351 H Calculated Osmolality 315 H Calcium 9.3 Corrected Calcium 9.7 Phosphorus 4.6 Magnesium 2.3 Total Bilirubin 0.4 AST 12 ALT 9 L Alkaline Phosphatase 159 H D Total Protein 6.5 Albumin 3.5 Globulin 3.0 Albumin/Globulin Ratio 1.2 ABG Interpretation ABG results: 04/18/25 04/18/25 04/18/25 04:40 06:27 10:30 ABG pH 7.28 L 7.33 L 7.36 ABG pCO2 72 H* 67 H 61 H ABG pO2 132 H 60 L D 60 L ABG HCO3 34 H 35 H 34 H ABG O2 Saturation 100 H 93 93 ABG Base Excess 6 H 7 H 8 H 04/19/25 05/10/25 08:53 07:40 ABG pH 7.47 H D 7.52 H ABG pCO2 45 D 40 ABG pO2 66 L 60 L ABG HCO3 33 H 32 H ABG O2 Saturation 96 94 ABG Base Excess 8 H 8 H Quality Measures Quality Measures VTE prophylaxis Advance care planning discussed with:: patient Assessment & Plan Assessment Current Active Medications: Generic Name Dose Route Start Last Admin Trade Name Freq PRN Reason Stop Dose Admin Acetaminophen 650 mg 05/25/25 06:14 05/25/25 06:22 Acetaminophen 325 Mg Tablet PO 06/24/25 06:13 650 mg Q4HR PRN Administration Fever >100.3, pain Acetylcysteine 3 ml 05/10/25 15:00 05/26/25 07:15 Acetylcysteine Rt Gloria 10% 4 Ml Nebu INH 06/09/25 14:59 3 ml Q8HRRT KOURTNEY Administration Albuterol/Ipratropium 3 ml 05/10/25 15:00 05/26/25 07:15 Albuterol/Ipratropium (Duoneb) Rt Gloria 3 Ml Nebu INH 06/09/25 14:59 3 ml Q8HRRT KOURTNEY Administration Amiodarone HCl 200 mg 05/12/25 13:45 05/26/25 09:15 Amiodarone Hcl 200 Mg Tablet GT 06/11/25 13:44 200 mg QDAY KOURTNEY Administration Chlorhexidine Gluconate 15 ml 05/22/25 13:30 05/25/25 08:05 Chlorhexidine Mouthwash 0.12% Udc 15 Ml PO 06/21/25 13:29 15 ml DAILY KOURTNEY Administration Dextrose 25 ml 05/12/25 13:47 Dextrose 50%-Water Inj 50 Ml Syringe IV 06/11/25 13:46 Q15MIN PRN BG 50-70 responsive npo pt Dextrose 50 ml 05/12/25 13:48 Dextrose 50%-Water Inj 50 Ml Syringe IV 06/11/25 13:47 Q15MIN PRN BG <50 OR BG <70 & pt unresponsive Dextrose 25 ml 05/26/25 08:00 Dextrose 50%-Water Inj 50 Ml Syringe IV 06/25/25 07:59 Q15MIN PRN BG 50-70 responsive npo pt Dextrose 50 ml 05/26/25 08:00 Dextrose 50%-Water Inj 50 Ml Syringe IV 06/25/25 07:59 Q15MIN PRN BG <50 OR BG <70 & pt unresponsive Gabapentin 100 mg 05/20/25 14:30 05/26/25 06:19 Gabapentin 100 Mg Capsule GT 06/19/25 14:29 100 mg TID KOURTNEY Administration Glucagon 1 mg 05/12/25 13:49 Glucagon Inj 1 Mg Vial IM 06/11/25 13:48 Q15MIN PRN BG <70, and no IV access Glucagon 1 mg 05/26/25 08:00 Glucagon Inj 1 Mg Vial IM Q15MIN PRN BG <70, and no IV access Heparin Sodium (Porcine) 2,700 unit 05/21/25 16:12 05/24/25 13:11 Heparin Sod Inj 1000 Unit/Ml Vial 10 Ml INDWELLCAT 06/04/25 16:11 2,700 unit X1 PRN Administration DIALYSIS Insulin Glargine 45 unit 05/26/25 09:00 05/26/25 09:18 Insulin Glargine (Lantus) 5 Unit/0.05 Ml (Per 5 Units) SC 06/25/25 08:59 45 unit QDAY KOURTNEY Administration Insulin Glargine 10 unit 05/26/25 21:00 Insulin Glargine (Lantus) 5 Unit/0.05 Ml (Per 5 Units) SC 05/26/25 21:01 X1 ONE Insulin Human Lispro 0 unit 05/12/25 18:00 05/26/25 06:19 Insulin Lispro (Admelog) 1 Unit/0.01 Ml Unit SC 06/11/25 17:59 5 unit Q6HR KOURTNEY Administration Protocol Lansoprazole 30 mg 05/05/25 09:00 05/26/25 09:15 Lansoprazole 30 Mg Tab. GT 06/04/25 08:59 30 mg QDAY KOURTNEY Administration Methylprednisolone Sodium Succinate 40 mg 05/22/25 21:00 05/26/25 09:14 Methylprednisolone Sod Succ 40 Mg Vial IVP 05/29/25 20:59 40 mg BID KOURTNEY Administration Pharmacy Consult 1 each 05/14/25 08:22 Pharmacy Renal Dose Adjustment 1 Ea XX 06/13/25 08:21 PRN PRN CONSULT Sennosides 2 tab 05/02/25 09:00 05/26/25 09:15 Senna Tablet GT 06/01/25 08:59 2 tab QDAY KOURTNEY Administration Protocol Sevelamer Carbonate 0.8 gm 05/20/25 09:45 05/26/25 09:23 Sevelamer Carbonate 0.8 Gm Packet (Non-Formulary) GT 06/19/25 09:44 0.8 gm TIDWM KOURTNEY Administration Sodium Chloride 3 ml 05/26/25 08:02 Sodium Chloride Rt Gloria 0.9% 3 Ml Nebu INH 06/25/25 08:01 PRN PRN SOLN Sodium Hypochlorite 473 ml 05/06/25 21:00 05/26/25 09:23 Sod Hypochlorite 1/4 Str 473 Ml Btl IRRIG 06/05/25 20:59 1 applicatio BID KOURTNEY Administration Plan In summary, Mr. Ortega is a 64-year-old male with past medical history of DM2, hypertension, A-fib, and Jehova's witness was admitted to the ICU on 02/27/2025 for shock and acute on chronic hypoxic respiratory failure. He is s/p laparoscopic J-tube placement from [facility]. S/p temporary dialysis catheter placement and hemodialysis session 05/21, continue hemodialysis (next session planned for 05/27) as needed. Pending FADI. #Acute kidney injury likely 2/2 Ischemic ATN #Fluid overload Patient was admitted with acute kidney injury likely ischemic acute tubular necrosis, received temporary hemodialysis catheter placed 04/24, receiving dialysis had 1 L removed on 04/24, 2 L on 04/25, 2.14 on 04/26, 2.1 L on 04/29; temporary dialysis catheter discontinued on 05/06. Dialysis done 05/22, 05/24 (-2.4L) Plan: -Continue MWF dialysis schedule (next dialysis Sunday 05/27) -Monitor I&O's -Avoid nephrotoxic agents -Renally dose medication #Acute on Chronic Respiratory Failure secondary to mucous plug #Healthcare-Associated Pneumonia #Leukocytosis #Paroxysmal atrial fibrillation #Right diastolic CHF #Decubitus ulcer #Chronic back pain #Jejunostomy tube #Normocytic normochromic anemia #Acute on Chronic Hypoxic Hypercapnic Respiratory Failure #Obesity hypoventilation syndrome and obstructive sleep apnea #Tracheostomy #Hx of A-fib #Right internal jugular venous thrombosis #Right arm swelling #Morbid obesity #DM2 Above handled by primary hospitalist team Patient seen and care discussed with my attending physician, Dr. Teressa Fox MD PGY-1 Attending Provider Attestation/Addendum Patient seen and examined with resident physician Dr. Fox. Note reviewed, agree with findings and recommendations. BUN/creatinine elevated again- ?? going into ATN. Edema ++ Labs 3 times weekly with pediatric tubes due to his Yarsanism status. Had a long conversation with the patient-agreed for temporary dialysis. Unfortunately IR cannot do permanent catheter -- agreed to do temporary catheter due to his BMI. Dialysis catheter placed by Dr. Galicia in the right IJ. Patient received dialysis session on Tuesday. Next dialysis scheduled for Tuesday. Gentle IV fluids given today He will need LTAC placement with dialysis.
[2025-05-26] MEDS: CHLORHEXIDINE MOUTHWASH 0.12% UDC 15 ML PO (12:17)
[2025-05-26] MEDS: SODIUM CHLORIDE 0.9% 500 ML 500 ML 50 ML IV (12:19)
--- NOTE | 2025-05-26 14:02 | PD.RESPRO ---
Documentation for date of: 05/26/25 Subjective Subjective Interval history: The patient is evaluated bedside, has no active complaints, patient's parents were also at the bedside, pending placement to LTAC, requiring insurance agreement to be signed. Complaining of pain at the site of sacral wound, resumed [place] for pain relief. Noted hyperkalemia on labs, hyperkalemia protocol medications given. Noted hyperglycemia on a.m. labs, fingerstick glucose more than 300, likely contributed by IV steroids. Increased basal insulin to 45 units in the morning, added 10 units with basal insulin glargine at night, patient will likely require twice daily dosing of long-acting insulin as long as patient stays on steroids. Exam Vital Signs Temp Pulse Resp BP Pulse Ox O2 Del Method O2 Flow Rate 97.1 F 89 28 H 109/77 96 Mechanical Ventilation 65 05/26/25 08:00 05/26/25 13:31 05/26/25 09:13 05/26/25 09:15 05/26/25 13:31 05/26/25 08:00 05/26/25 04:00 FiO2 35 05/26/25 13:31 Narrative Exam General: Awake. obese. Tracheostomy tube insitu on SIMV mode HEENT: Normocephalic, atraumatic, mucous membranes moist. Heart: IRRegular rate and rhythm, no murmurs. Lungs: Clear to auscultation with no wheezing or crackles. But noted decreased breath sounds bilaterally in view of body habitus. noted right IJV catheter on right side Abdomen: Soft, nondistended, nontender, positive bowel sounds. ?No guarding or rebound tenderness. Neurologic: Alert and oriented x3, no gross neurological deficit, and patient able to move all 4 extremities. Extremities: No edema. Skin: Large sacral ulcer in the gluteal region, Decubitus Grade III/IV Objective Labs 05/26/25 05:29 05/27/25 05:16 Labs: Laboratory Results - last 24 hr 05/26/25 05:29 WBC 10.6 RBC 2.65 L Hgb 7.7 L Hct 24.7 L MCV 93 MCH 29.1 MCHC 31.2 RDW Std Deviation 60.6 H Plt Count 394 Neut % (Auto) 90 H Lymph % (Auto) 5 L [place] % (Auto) 4 Eos % (Auto) 0 Baso % (Auto) 0 Neut # (Auto) 9.6 H Lymph # (Auto) 0.5 L [place] # (Auto) 0.4 Eos # (Auto) 0.0 Baso # (Auto) 0.0 Immature Gran # (Auto) 0.04 H Absolute Nucleated RBC 0.00 Immature Gran % 0 Nucleated RBC % 0 Sodium 138 Potassium 5.5 H Chloride 98 Carbon Dioxide 25.9 Anion Gap 14 BUN 86 H Creatinine 2.9 H Estim Creat Clear Calc 42.3 L eGFR 23 L BUN/Creatinine Ratio 30 H Glucose 351 H Calculated Osmolality 315 H Calcium 9.3 Corrected Calcium 9.7 Phosphorus 4.6 Magnesium 2.3 Total Bilirubin 0.4 AST 12 ALT 9 L Alkaline Phosphatase 159 H D Total Protein 6.5 Albumin 3.5 Globulin 3.0 Albumin/Globulin Ratio 1.2 ABG Interpretation ABG results: 04/18/25 04/18/25 04/18/25 04:40 06:27 10:30 ABG pH 7.28 L 7.33 L 7.36 ABG pCO2 72 H* 67 H 61 H ABG pO2 132 H 60 L D 60 L ABG HCO3 34 H 35 H 34 H ABG O2 Saturation 100 H 93 93 ABG Base Excess 6 H 7 H 8 H 04/19/25 05/10/25 08:53 07:40 ABG pH 7.47 H D 7.52 H ABG pCO2 45 D 40 ABG pO2 66 L 60 L ABG HCO3 33 H 32 H ABG O2 Saturation 96 94 ABG Base Excess 8 H 8 H Quality Measures Quality Measures VTE prophylaxis Advance care planning discussed with:: patient Assessment & Plan Assessment Current Active Medications: Generic Name Dose Route Start Last Admin Trade Name Freq PRN Reason Stop Dose Admin Acetaminophen 650 mg 05/25/25 06:14 05/25/25 06:22 Acetaminophen 325 Mg Tablet PO 06/24/25 06:13 650 mg Q4HR PRN Administration Fever >100.3, pain Acetylcysteine 3 ml 05/10/25 15:00 05/26/25 07:15 Acetylcysteine Rt Gloria 10% 4 Ml Nebu INH 06/09/25 14:59 3 ml Q8HRRT KOURTNEY Administration Albuterol/Ipratropium 3 ml 05/10/25 15:00 05/26/25 07:15 Albuterol/Ipratropium (Duoneb) Rt Gloria 3 Ml Nebu INH 06/09/25 14:59 3 ml Q8HRRT KUORTNEY Administration Amiodarone HCl 200 mg 05/12/25 13:45 05/26/25 09:15 Amiodarone Hcl 200 Mg Tablet GT 06/11/25 13:44 200 mg QDAY KOURTNEY Administration Chlorhexidine Gluconate 15 ml 05/22/25 13:30 05/26/25 12:17 Chlorhexidine Mouthwash 0.12% Udc 15 Ml PO 06/21/25 13:29 15 ml DAILY KOURTNEY Administration Dextrose 25 ml 05/12/25 13:47 Dextrose 50%-Water Inj 50 Ml Syringe IV 06/11/25 13:46 Q15MIN PRN BG 50-70 responsive npo pt Dextrose 50 ml 05/12/25 13:48 Dextrose 50%-Water Inj 50 Ml Syringe IV 06/11/25 13:47 Q15MIN PRN BG <50 OR BG <70 & pt unresponsive Dextrose 25 ml 05/26/25 08:00 Dextrose 50%-Water Inj 50 Ml Syringe IV 06/25/25 07:59 Q15MIN PRN BG 50-70 responsive npo pt Dextrose 50 ml 05/26/25 08:00 Dextrose 50%-Water Inj 50 Ml Syringe IV 06/25/25 07:59 Q15MIN PRN BG <50 OR BG <70 & pt unresponsive Gabapentin 100 mg 05/20/25 14:30 05/26/25 13:39 Gabapentin 100 Mg Capsule GT 06/19/25 14:29 100 mg TID KOURTNEY Administration Glucagon 1 mg 05/12/25 13:49 Glucagon Inj 1 Mg Vial IM 06/11/25 13:48 Q15MIN PRN BG <70, and no IV access Glucagon 1 mg 05/26/25 08:00 Glucagon Inj 1 Mg Vial IM Q15MIN PRN BG <70, and no IV access Heparin Sodium (Porcine) 2,700 unit 05/21/25 16:12 05/24/25 13:11 Heparin Sod Inj 1000 Unit/Ml Vial 10 Ml INDWELLCAT 06/04/25 16:11 2,700 unit X1 PRN Administration DIALYSIS Sodium Chloride 500 mls @ 50 mls/hr 05/26/25 10:25 05/26/25 12:19 Ns IV 05/26/25 20:24 50 mls/hr .Q10H ONE Administration Insulin Glargine 45 unit 05/26/25 09:00 05/26/25 09:18 Insulin Glargine (Lantus) 5 Unit/0.05 Ml (Per 5 Units) SC 06/25/25 08:59 45 unit QDAY KOURTNEY Administration Insulin Glargine 10 unit 05/26/25 21:00 Insulin Glargine (Lantus) 5 Unit/0.05 Ml (Per 5 Units) SC 05/26/25 21:01 X1 ONE Insulin Human Lispro 0 unit 05/12/25 18:00 05/26/25 12:18 Insulin Lispro (Admelog) 1 Unit/0.01 Ml Unit SC 06/11/25 17:59 4 unit Q6HR KOURTNEY Administration Protocol Lansoprazole 30 mg 05/05/25 09:00 05/26/25 09:15 Lansoprazole 30 Mg Tab.Rap. GT 06/04/25 08:59 30 mg QDAY KOURTNEY Administration Methylprednisolone Sodium Succinate 40 mg 05/22/25 21:00 05/26/25 09:14 Methylprednisolone Sod Succ 40 Mg Vial IVP 05/29/25 20:59 40 mg BID KOURTNEY Administration Pharmacy Consult 1 each 05/14/25 08:22 Pharmacy Renal Dose Adjustment 1 Ea XX 06/13/25 08:21 PRN PRN CONSULT Sennosides 2 tab 05/02/25 09:00 05/26/25 09:15 Senna Tablet GT 06/01/25 08:59 2 tab QDAY KOURTNEY Administration Protocol Sevelamer Carbonate 0.8 gm 05/20/25 09:45 05/26/25 12:18 Sevelamer Carbonate 0.8 Gm Packet (Non-Formulary) GT 06/19/25 09:44 0.8 gm TIDWM KOURTNEY Administration Sodium Chloride 3 ml 05/26/25 08:02 Sodium Chloride Rt Gloria 0.9% 3 Ml Nebu INH 06/25/25 08:01 PRN PRN SOLN Sodium Hypochlorite 473 ml 05/06/25 21:00 05/26/25 09:23 Sod Hypochlorite 1/4 Str 473 Ml Btl IRRIG 06/05/25 20:59 1 applicatio BID KOURTNEY Administration Plan Patient is a 64-year-old male with morbid obesity with subsequent obesity hypoventilation syndrome requiring tracheostomy and J-tube placement, hypertension, type 2 diabetes, atrial fibrillation, right internal jugular DVT and acute kidney injury secondary to ischemic ATN requiring multiple sessions of hemodialysis and sacral ulcers status post wound VAC currently being treated for acute on chronic hypoxic respiratory failure and ischemic ATN. S/p temporary dialysis catheter placement and hemodialysis session 05/21, continue hemodialysis as needed. Pending FADI. #Acute kidney injury-suspicion of ischemic ATN, resolved #Fluid overload #Acute on chronic hypoxic respiratory failure, improving. 04/20 ? Attempt was made to place Fuller catheter however unable to pass catheter due to significant resistance and attempt was terminated. Discussed with nursing about possibility of weighing briefs daily. Patient had temporary hemodialysis catheter placed 04/24, receiving dialysis had 1 L removed on 04/24, 2 L on 04/25, 2.14 on 04/26, 2.1 L on 04/29; temporary dialysis catheter discontinued on 05/06 Patient being followed by nephrology, nephrology agrees with diuresis for now, will need close monitoring, poor candidate for dialysis due to body habitus and also has chronic anemia with wound bleeding from sacral region-batch freezer did discuss with patient in detail, he verbalizes understanding. Bumex held on 05/15 due to worsening creatinine, continues to worsen. Due to lack of improvement despite diuretic holiday, discussed with patient today need for hemodialysis in the near future. Patient initially refused but after multiple attempts of counseling and explaining risks and benefits, including , patient was eventually agreeable. S/p temporary hemodialysis catheter placement and hemodialysis session 05/21. 3 dialysis sessions since 05/21. Plan: -Nephrology Dr. Li consulted, appreciate recommendations ? No hemodialysis today -Monitor CMP -Continue antibiotics -Monitor I&O's -Avoid nephrotoxic agents -Renally dose medication #Acute on Chronic Respiratory Failure secondary to mucous plug #Healthcare-Associated Pneumonia #Leukocytosis Patient noted to have acute on chronic respiratory failure, required bronchoscopy w/ mucous plugs removed. Previous sputum Pseudomnas (04/03/2025) 05/09/2025 Bronchial washing culture grew pseudomonas, sensitive to Zosyn Vancomycin (05/09/2025-05/12/25) and doxycycline (05/12-05/13) were discontinued due to nephrotoxicity. Completed Zosyn course (05/09-05/16/25) Of note, patient has history of Pseudomonnas infection 05/21/25: Patient was having difficulty breathing this morning due to tracheostomy misalignment. Consulted ICU, plan for tracheostomy adjustment today. Plan: -s/p bronchoscopy -per ICU recommendations, continue Solumedrol 40 mg IVP BIS for 5-7 days -resume oral and tracheostomy care -Repeat bronchoscopy at a later time -Completed Levofloxacin (05/14/25-05/21/25) -Blow-by during the day, mechanical ventilation at night as needed at baseline, currently on mechanical ventilation -DuoNeb, Mucomyst and chest physiotherapy scheduled #Paroxysmal atrial fibrillation Per cardiology there is a concern of heart block, tachybradycardia syndrome as well. [id number] score of 3 points indicating 3.2% risk of stroke per year HAS-BLED: 3. High risk of major bleeding 05/13: Discussed with outboard motorboat rigger?will start on amiodarone previous dose, 200 mg daily. Per cardiology patient is a poor candidate for pacemaker placement, patient was informed at bedside by cardiology team. He verbalized understanding. Plan: - Continue amiodarone. - Cardiology consulted, appreciate recommendations - Patient will need anticoagulation, however has low hemoglobin, bleeding wound will defer anticoagulation #Congestive heart failure, HFpEF 65% #Diastolic dysfunction, grade 3 #Pulmonary hypertension #Right heart failure #BASIA/OHS #Moderate to severe a AOV calcification with no stenosis Patient has a past medical history of right heart faillure, Diastolic dysfucntion, and HFpEF 65% likely in the setting of cardiomypoathy seconadary to morbid obesity form BASIA/OHS. Given Cxr noted with prominent vascular congestion, consider repeat BNP, although hemodynamically unstable given pressors but may consider. No pheriphearl edema noted. Cxr (05/09/2025): Mild Heart Failure, Prominent vascular congestion and Moderate to large right pleural effusion Echo (04/29/2025): Normal LV size and function. Estimated EF of 65%. Grade III Diastolic Dysfunction.Right ventricle is dilated with mild RV dysfunction RVSP 47mmHg. RAP 15mmHg.Severe biatrial dilation.Moderate to Severe AOV calcification with no stenosis <ild tricuspid regurgitation. No pericardial effusion. Plan -On hemodialysis as above -Recommended patient to sit up in bed to help relieve IVC pressure -Cardiology consulted -Patient 1500 cc/day fluid restriction, daily weights, tube feeds resumed -K >4 and Mg >2 #Decubitus ulcer status post excisional debridement of sacral decubitus ulcer Recent debridement of large decubitus ulcer on 05/02/2025 likely secondary to morbid obestiy and lack of mobility. 04/29: excisional debridement of sacral decubitus ulcer, washout and placement of wound VAC. 05/02: Patient had significant bleeding overnight, wound VAC leaked. Hemoglobin stable this morning, patient's bleeding from wound overnight was controlled with suture ligation. Wound was assessed by general surgeon, patient was transitioned back to red dry dressings daily. Plan: -Wound care following - [place] for pain as needed #Jejunostomy tube #Abdominal abscess - resolved Patient report said that there was an intra-abdominal abscess that have could have been from a perforated ulcer in the past See also note reviewed, mentions that patient likely had a marginal ulcer, but also was not seen on EGD without, currently patient has no abdominal tenderness and is totally asymptomatic. No current drain at this time Patient is status post laparoscopic J-tube placement and is currently on feeds Patient will continue to have this tube and will likely go to a long-term care facility with this until patient can swallow safely Plan: ? Monitor vitals closely #Normocytic normochromic anemia - stable Multifactorial. Patient's baseline hemoglobin throughout the hospitalization has been in the range 9?11, patient did have some bleeding from wound VAC site on 05/02 which was controlled by suture ligation by general surgery. Had recurrent bleeding and eventually heparin drip was held. Hgb continues to hover around 7-8. - Patient is a [employer], denies any blood transfusion/blood products - Monitor CBC #Right internal jugular venous thrombosis #Right arm swelling Continuing free water flushes, patient has gone multiple days of heparin drip since 04/01 Right upper extremity ultrasound May 04-shows right IJ thrombus Plan: ? Continue to hold heparin drip due to recurrent sacral ulcer bleeding #Morbid obesity #DM2 A1C 7.6 on 03/05/2025 Patient has a BMI of 79.5->68.7 Attempted to prescribe tirzepatide to outside pharmacy to bring inpatient however no one is able to pick it up for the patient. Plan: - ISS scale 2 - Hypoglycemia protocol - 45 units of Lantus, added 10 units Lantus for tonight, will reevaluate insulin requirements based on glucose monitoring for 24 hours. Health Maintenance Disposition: Pending LTAC DVT prophylaxis: SCDs, patient is [employer] and has bleeding sacral wound GI prophylaxis: Protonix Diet: 2Cal Tube Feeds with 30 cc/hour water flush CODE STATUS: Full code Patient plan of care was discussed with the attending physician, Dr. Cali Tobar MD PG 3 Attending Provider Attestation/Addendum IHetal DO, attest that I was physically present for the cardoza portions of the service and evaluated the patient with the resident and I reviewed and discussed the case with the resident and agree with the resident's findings and plans of care as documented above Patient seen and eval this a.m. Patient is able to talk with deflated cuff. Patient has no active complaints at this time and is feeling well. He denies any pain or shortness of breath. Parents are at bedside to visit patient. He appears to be in good spirits. Will continue with current management. Will order gentle IV fluids at this time as patient is noted to have elevated BUN. Will uptitrate insulin as blood sugar appears to be poorly controlled in the 300s.
--- NOTE | 2025-05-26 14:44 | ESPR_ITS ---
<Statement entered by Lenora John MD - 05/26/25 18:00> I personally examined the patient evaluated and telemetry patient is clinically stable remains in atrial fibrillation rate controlled well continue amiodarone for now. I reviewed the progress note all essential components of the resident physician PGY 2 Dr. Sanchez agree with the treatment plan recommendation as documented Documentation for date of: 05/26/25 Subjective Subjective Interval history: Patient is seen at bedside currently on mechanical ventilation currently on pressure control patient has remained on SIMV mode overnight. Endorses to feeling okay and does not have any cardiac complaints. Vitals are stable, telemetry is reviewed patient is in A-fib rate controlled. Will continue current management of amiodarone 200 mg through G-tube. Labs are reviewed hemoglobin is 7.7, hematocrit 24.7, BUN 86, creatinine 2.9, GFR 23 potassium 5.5. Glucose 351. Nephrology team is on board following the patient. Exam Vital Signs Temp Pulse Resp BP Pulse Ox O2 Del Method O2 Flow Rate 97.1 F 89 28 H 109/77 96 Mechanical Ventilation 65 05/26/25 08:00 05/26/25 13:31 05/26/25 09:13 05/26/25 09:15 05/26/25 13:31 05/26/25 08:00 05/26/25 04:00 FiO2 35 05/26/25 13:31 Narrative Exam General: Awake. obese. Tracheostomy tube insitu on SIMV mode HEENT: Normocephalic, atraumatic, mucous membranes moist. Heart: IRRegular rate and rhythm, no murmurs. Lungs: Clear to auscultation with no wheezing or crackles. But noted decreased breath sounds bilaterally in view of body habitus. noted right IJV catheter on right side Abdomen: Soft, nondistended, nontender, positive bowel sounds. ?No guarding or rebound tenderness. Neurologic: Alert and oriented x3, no gross neurological deficit, and patient able to move all 4 extremities. Extremities: No edema. Skin: Large sacral ulcer in the gluteal region, Decubitus Grade III/IV Objective Labs 05/26/25 05:29 05/26/25 05:29 Labs: Laboratory Results - last 24 hr 05/26/25 05:29 WBC 10.6 RBC 2.65 L Hgb 7.7 L Hct 24.7 L MCV 93 MCH 29.1 MCHC 31.2 RDW Std Deviation 60.6 H Plt Count 394 Neut % (Auto) 90 H Lymph % (Auto) 5 L Lucas % (Auto) 4 Eos % (Auto) 0 Baso % (Auto) 0 Neut # (Auto) 9.6 H Lymph # (Auto) 0.5 L Lucas # (Auto) 0.4 Eos # (Auto) 0.0 Baso # (Auto) 0.0 Immature Gran # (Auto) 0.04 H Absolute Nucleated RBC 0.00 Immature Gran % 0 Nucleated RBC % 0 Sodium 138 Potassium 5.5 H Chloride 98 Carbon Dioxide 25.9 Anion Gap 14 BUN 86 H Creatinine 2.9 H Estim Creat Clear Calc 42.3 L eGFR 23 L BUN/Creatinine Ratio 30 H Glucose 351 H Calculated Osmolality 315 H Calcium 9.3 Corrected Calcium 9.7 Phosphorus 4.6 Magnesium 2.3 Total Bilirubin 0.4 AST 12 ALT 9 L Alkaline Phosphatase 159 H D Total Protein 6.5 Albumin 3.5 Globulin 3.0 Albumin/Globulin Ratio 1.2 ABG Interpretation ABG results: 04/18/25 04/18/25 04/18/25 04:40 06:27 10:30 ABG pH 7.28 L 7.33 L 7.36 ABG pCO2 72 H* 67 H 61 H ABG pO2 132 H 60 L D 60 L ABG HCO3 34 H 35 H 34 H ABG O2 Saturation 100 H 93 93 ABG Base Excess 6 H 7 H 8 H 04/19/25 05/10/25 08:53 07:40 ABG pH 7.47 H D 7.52 H ABG pCO2 45 D 40 ABG pO2 66 L 60 L ABG HCO3 33 H 32 H ABG O2 Saturation 96 94 ABG Base Excess 8 H 8 H Quality Measures Quality Measures VTE prophylaxis Advance care planning discussed with:: patient Assessment & Plan Assessment Current Active Medications: Generic Name Dose Route Start Last Admin Trade Name Freq PRN Reason Stop Dose Admin Acetaminophen 650 mg 05/25/25 06:14 05/25/25 06:22 Acetaminophen 325 Mg Tablet PO 06/24/25 06:13 650 mg Q4HR PRN Administration Fever >100.3, pain Acetylcysteine 3 ml 05/10/25 15:00 05/26/25 07:15 Acetylcysteine Rt Gloria 10% 4 Ml Nebu INH 06/09/25 14:59 3 ml Q8HRRT KOURTNEY Administration Albuterol/Ipratropium 3 ml 05/10/25 15:00 05/26/25 07:15 Albuterol/Ipratropium (Duoneb) Rt Gloria 3 Ml Nebu INH 06/09/25 14:59 3 ml Q8HRRT KOURTNEY Administration Amiodarone HCl 200 mg 05/12/25 13:45 05/26/25 09:15 Amiodarone Hcl 200 Mg Tablet GT 06/11/25 13:44 200 mg QDAY KOURTNEY Administration Chlorhexidine Gluconate 15 ml 05/22/25 13:30 05/26/25 12:17 Chlorhexidine Mouthwash 0.12% Udc 15 Ml PO 06/21/25 13:29 15 ml DAILY KOURTNEY Administration Dextrose 25 ml 05/26/25 08:00 Dextrose 50%-Water Inj 50 Ml Syringe IV 06/25/25 07:59 Q15MIN PRN BG 50-70 responsive npo pt Dextrose 50 ml 05/26/25 08:00 Dextrose 50%-Water Inj 50 Ml Syringe IV 06/25/25 07:59 Q15MIN PRN BG <50 OR BG <70 & pt unresponsive Gabapentin 100 mg 05/20/25 14:30 05/26/25 13:39 Gabapentin 100 Mg Capsule GT 06/19/25 14:29 100 mg TID KOURTNEY Administration Glucagon 1 mg 05/26/25 08:00 Glucagon Inj 1 Mg Vial IM Q15MIN PRN BG <70, and no IV access Heparin Sodium (Porcine) 2,700 unit 05/21/25 16:12 05/24/25 13:11 Heparin Sod Inj 1000 Unit/Ml Vial 10 Ml INDWELLCAT 06/04/25 16:11 2,700 unit X1 PRN Administration DIALYSIS Sodium Chloride 500 mls @ 50 mls/hr 05/26/25 10:25 05/26/25 12:19 Ns IV 05/26/25 20:24 50 mls/hr .Q10H ONE Administration Insulin Glargine 45 unit 05/26/25 09:00 05/26/25 09:18 Insulin Glargine (Lantus) 5 Unit/0.05 Ml (Per 5 Units) SC 06/25/25 08:59 45 unit QDAY KOURTNEY Administration Insulin Glargine 10 unit 05/26/25 21:00 Insulin Glargine (Lantus) 5 Unit/0.05 Ml (Per 5 Units) SC 05/26/25 21:01 X1 ONE Insulin Human Lispro 0 unit 05/12/25 18:00 05/26/25 12:18 Insulin Lispro (Admelog) 1 Unit/0.01 Ml Unit SC 06/11/25 17:59 4 unit Q6HR KOURTNEY Administration Protocol Lansoprazole 30 mg 05/05/25 09:00 05/26/25 09:15 Lansoprazole 30 Mg Tab.Rap. GT 06/04/25 08:59 30 mg QDAY KOURTNEY Administration Methylprednisolone Sodium Succinate 40 mg 05/22/25 21:00 05/26/25 09:14 Methylprednisolone Sod Succ 40 Mg Vial IVP 05/29/25 20:59 40 mg BID KOURTNEY Administration Pharmacy Consult 1 each 05/14/25 08:22 Pharmacy Renal Dose Adjustment 1 Ea XX 06/13/25 08:21 PRN PRN CONSULT Sennosides 2 tab 05/02/25 09:00 05/26/25 09:15 Senna Tablet GT 06/01/25 08:59 2 tab QDAY KOURTNEY Administration Protocol Sevelamer Carbonate 0.8 gm 05/20/25 09:45 05/26/25 12:18 Sevelamer Carbonate 0.8 Gm Packet (Non-Formulary) GT 06/19/25 09:44 0.8 gm TIDWM KOURTNEY Administration Sodium Chloride 3 ml 05/26/25 08:02 Sodium Chloride Rt Gloria 0.9% 3 Ml Nebu INH 06/25/25 08:01 PRN PRN SOLN Sodium Hypochlorite 473 ml 05/06/25 21:00 05/26/25 09:23 Sod Hypochlorite 1/4 Str 473 Ml Btl IRRIG 06/05/25 20:59 1 applicatio BID KOURTNEY Administration Plan Mr. Ortega is a 64-year-old male, [employer] with a past medical history of hypertension, diabetes mellitus type 2, history of atrial fibrillation, CHF HFpEF 65%, grade 3 diastolic dysfunction, right heart failure, RSVP 47, moderate to severe ALB calsifications with no stenosis, status post tracheostomy, s/p PEG Tube at [facility], bariatric team, history of dyspahagia, extensive decubitus ulcers, CKD, history of anemia, history of Diego-en- Y gastric bypass, BASIA/OHS, and morbid obesity. Patient was upgraded to ICU for a third time with in acute respiratory respiratory failure secondary to mucous plug and shock, likely cardiogenic shock secondary to complete heart block requiring pressors and downgraded again # A-fib with RVR - s/p cardioversion ---> CVR # Bradycardia and questionable complete heart block, resolved - Patient was hypoxic and was transferred to the ICU on 05/09/2025. - Cardiology was consulted 05/09/2025 for significant bradycardia requiring external temporary transcutaneous pacing. - Plan was to place a temporary transvenous pacemaker if the patient continues to be bradycardic as he was 100% dependent on the transcutaneous pacing. - Bronchoscopy was performed which showed small mucous plug which was removed and patient rhythm was back to his atrial fibrillation with RVR. - Patient was on dopamine at that point of time. Patient blood pressure was on the lower side and was unstable and required cardioversion x 1. - Patient was on levophed and phenylephrine for a short period of time. - Patient is presently ventilator dependent and has a tracheostomy in place along with a jejunostomy. Plan - Recommend to continue telemetry monitoring - In view of ongoing sacral ulcer with recurrent infections, pacemaker placement cannot be done. But fortunately patient did not have any further episodes of bradycardia. So no need of pacemaker placement as of now - Recommended to continue amiodarone 200 Mg G-tube once daily - As patient had large decubitus ulcer and has tendency to bleed, anticoagulation is held for now # H/O CHF, HFpEF 65% #Diastolic dysfunction, grade 3 #Pulmonary hypertension #BASIA/OHS #Moderate to severe a AOV calcification with no stenosis #Moderate Right Pleural Effusion - Patient has a past medical history of right heart failure, Diastolic dysfunction, and HFpEF 65% likely in the setting of cardiomypoathy secondary to morbid obesity form BASIA/OHS. - [place] [facility] 03/19/2025: RAP 8, PAP 27, PCWP 7. - Echo (04/29/2025): Normal LV size and function. Estimated EF of 65%. Grade III Diastolic Dysfunction.Right ventricle is dilated with mild RV dysfunction RVSP 47mmHg. RAP 15mmHg.Severe biatrial dilation.Moderate to Severe AOV calcification with no stenosis <ild tricuspid regurgitation. No pericardial effusion. - Echo (05/14/2025) : Normal LV size and function. Estimated EF is 55 to 60%. Severely RA dilated right ventricle as well as right atrium. IVS flattening noted both in systole and diastole indicating both pressure and volume overload Plan -Recommended to hold diuresis for now due to kidney function and pt does not appear to be fluid overloaded -Pt will be getting dialysis on 05/21/25 -K >4 and Mg >2 #Acute on Chronic Respiratory Failure secondary to mucus plug #Healthcare-Associated Pneumonia #Leukocytosis #Large Sacral Decubitus Ulcer s/p excisional debridement (05/02/2025) #CKD stage III #Jejunostomy #History of abdominal abscess s/p percutaneous drainage #Diabetes Mellitus Type 2 non insulin depedent #Normocytic Anemia Management of rest of the medical conditions as per primary team and other consultants. Thank you for the consult and allowing us to participate in the care of the patient. Cardiology will continue to follow. Patient plan of care was discussed with the Dragline Operator Helper Dr. Alvaro Sanchez, PGY2
[2025-05-26] MEDS: HYDROcodone/APAP 5/325 TABLET 1 TAB GT (16:03)
[2025-05-26] MEDS: INSULIN GLARGINE (Lantus) 5 UNIT/0.05 ML (PER 5 UNITS) 10 UNIT SC (22:12)
[2025-05-27] VITALS (29 sets, daily range): BP systolic 109–143; BP diastolic 61–96; PULSE 79–105; RESP 16–26; TEMP 36.1–37; O2SAT 93–99; BMI 68.5
[2025-05-27] MEDS: INSULIN LISPRO (AdmeLOG) 1 UNIT/0.01 ML UNIT SC ×4 (00:27→17:34)
[2025-05-27] MEDS: GABAPENTIN 100 MG CAPSULE GT ×3 (05:20→21:11)
[2025-05-27 06:09] LABS: Albumin, Serum 3.5 gm/dL (3.4-4.8); Anion Gap 13 (7-16); Calcium 9.1 mg/dL (8.3-10.6); Calcium (Corrected) 9.5 mg/dL (8.5-10.1); Carbon Dioxide 26.3 mMol/L (20.0-31.0); Chloride 99 mMol/L (98-107); Creatinine (Component) 3.0 mg/dL (0.6-1.3); Estimated Creatinine Clearance 40.9 mL/min (>60); Glucose 331 mg/dL (74-106); Phosphorous 4.6 mg/dL (2.4-5.1); Potassium 5.2 mMol/L (3.4-5.1); Sodium 138 mMol/L (136-145); eGFR 22 See Note
[2025-05-27 06:17] LABS: BUN/Creatinine Ratio 37 Ratio (12-20); Osmolality,Calculated 324 (275-295)
[2025-05-27 06:18] LABS: Blood Urea Nitrogen 112 mg/dL (9-23)
[2025-05-27] MEDS: ACETYLCYSTEINE RT SOL 10% 4 ML NEBU 3 ML INH ×3 (06:50→23:59)
[2025-05-27] MEDS: ALBUTEROL/IPRATROPIUM (Duoneb) RT SOL 3 ML NEBU INH ×3 (06:50→17:26)
[2025-05-27] MEDS: SOD HYPOCHLORITE 1/4 STR 473 ML BTL IRRIG ×2 (08:14→21:11)
--- NOTE | 2025-05-27 09:33 | PC.SS ---
Follow up note: EDUARDO has sent updated inquiry to Jose at [facility]. EDUARDO has spoken to Rosa JEFFERSON from patient's health insurance who explained she has provided insurance authorization to [employer], phone# [phone] on Tuesday05-24-25. Rosa JEFFERSON explained FADI (letter of agreement) will be started today. EDUARDO has informed Jose. Physician residents are aware.
--- NOTE | 2025-05-27 10:04 | PD.RESPRO ---
Documentation for date of: 05/27/25 Subjective Subjective Interval history: Mr. Ortega is a 64-year-old male with a past medical history of type 2 diabetes mellitus, history of ATN, A-fib, hypertension, severe right-sided heart failure, HFpEF, severe BASIA, status post tracheostomy and jejunostomy, patient was previously admitted here for hypoxic respiratory failure requiring mechanical ventilation, was later transferred out to [facility] for jejunostomy tube placement, complicated by abdominal abscess, patient is now transferred back to [facility] for further management. The patient was initially noted to have pneumonia and acute hypoxic respiratory failure, requiring mechanical ventilation, nephrology was consulted as patient's renal function continues to worsen. Patient had previously required hemodialysis for ATN, but is a poor dialysis candidate outpatient. 05/24/2025 No acute overnight events. Patient denies any new complaints/concerns. Urine output 887 ml last 24 hours. The plan is for the patient to receive dialysis today; kidney function tests continue to improve with dialysis. Patient denies any chest pain, shortness of breath, abdominal pain. 05/25/2025: No acute overnight events. Patient seen and examined at bedside. Dialysis done yesterday with -2.4L removed. Patient is feeling well today. No new complaints. Denies chest pain or fever. 05/26/2025: No acute overnight events. Patient seen and examined at bedside. Plan for dialysis Tuesday. Patient is feeling well today. No new complaints. Denies fever, chest pain, palpitations, shortness of breath. 05/27/2025: No acute events overnight. Patient seen and examined at bedside. Patient is getting dialysis. Patient says his breathing is on and off. Currently doing fine right now though. No new complaints. Denies fever, chest pain, palpitations, shortness of breath. Exam Vital Signs Temp Pulse Resp BP Pulse Ox O2 Del Method O2 Flow Rate 97.1 F 89 24 H 135/82 H 99 Mechanical Ventilation 65 05/27/25 08:00 05/27/25 10:00 05/27/25 08:00 05/27/25 10:00 05/27/25 08:00 05/27/25 04:00 05/27/25 04:00 FiO2 35 05/27/25 07:59 Narrative Exam GENERAL APPEARANCE: Awake, alert and oriented. No acute distress. NECK: Neck supple, no JVD or bruit, R IJ dialysis catheter CARDIOVASCULAR: Heart rate regular, no murmurs LUNGS/CHEST: Lungs CTAB ABDOMEN: Soft, nontender, nondistended. No masses. Normal bowel sounds. EXTREMITIES: mild edema in the lower extremities, mild upper extremity edema SKIN/MSK: Skin in warm, dry and intact without rashes or lesions. Appropriate color for ethnicity. Nailbeds pink with no cyanosis or clubbing. PSYCHIATRIC: Appropriate mood and affect. NEUROLOGICAL : No neurological deficits Objective Labs 05/26/25 05:29 05/27/25 05:16 Labs: Laboratory Results - last 24 hr 05/27/25 05:16 Sodium 138 Potassium 5.2 H Chloride 99 Carbon Dioxide 26.3 Anion Gap 13 BUN 112 H* Creatinine 3.0 H Estim Creat Clear Calc 40.9 L eGFR 22 L BUN/Creatinine Ratio 37 H Glucose 331 H Calculated Osmolality 324 H Calcium 9.1 Corrected Calcium 9.5 Phosphorus 4.6 Albumin 3.5 ABG Interpretation ABG results: 04/18/25 04/18/25 04/18/25 04:40 06:27 10:30 ABG pH 7.28 L 7.33 L 7.36 ABG pCO2 72 H* 67 H 61 H ABG pO2 132 H 60 L D 60 L ABG HCO3 34 H 35 H 34 H ABG O2 Saturation 100 H 93 93 ABG Base Excess 6 H 7 H 8 H 04/19/25 05/10/25 08:53 07:40 ABG pH 7.47 H D 7.52 H ABG pCO2 45 D 40 ABG pO2 66 L 60 L ABG HCO3 33 H 32 H ABG O2 Saturation 96 94 ABG Base Excess 8 H 8 H Quality Measures Quality Measures VTE prophylaxis Advance care planning discussed with:: patient Assessment & Plan Assessment Current Active Medications: Generic Name Dose Route Start Last Admin Trade Name Freq PRN Reason Stop Dose Admin Acetaminophen 650 mg 05/25/25 06:14 05/25/25 06:22 Acetaminophen 325 Mg Tablet PO 06/24/25 06:13 650 mg Q4HR PRN Administration Fever >100.3, pain Protocol Hydrocodone Bitart/Acetaminophen 1 tab 05/26/25 15:50 05/26/25 16:03 Hydrocodone/Apap 5/325 Tablet GT 05/31/25 15:49 1 tab Q6HR PRN Administration PAIN SCALE 4-10(Mod-Sev Acetylcysteine 3 ml 05/10/25 15:00 05/27/25 06:50 Acetylcysteine Rt Gloria 10% 4 Ml Nebu INH 06/09/25 14:59 3 ml Q8HRRT KOURTNEY Administration Albuterol/Ipratropium 3 ml 05/10/25 15:00 05/27/25 06:50 Albuterol/Ipratropium (Duoneb) Rt Gloria 3 Ml Nebu INH 06/09/25 14:59 3 ml Q8HRRT KOURTNEY Administration Amiodarone HCl 200 mg 05/12/25 13:45 05/26/25 09:15 Amiodarone Hcl 200 Mg Tablet GT 06/11/25 13:44 200 mg QDAY KOURTNEY Administration Chlorhexidine Gluconate 15 ml 05/22/25 13:30 05/26/25 12:17 Chlorhexidine Mouthwash 0.12% Udc 15 Ml PO 06/21/25 13:29 15 ml DAILY KOURTNEY Administration Dextrose 25 ml 05/27/25 08:07 Dextrose 50%-Water Inj 50 Ml Syringe IV 06/26/25 08:06 Q15MIN PRN BG 50-70 responsive npo pt Dextrose 50 ml 05/27/25 08:07 Dextrose 50%-Water Inj 50 Ml Syringe IV 06/26/25 08:06 Q15MIN PRN BG <50 OR BG <70 & pt unresponsive Gabapentin 100 mg 05/20/25 14:30 05/27/25 05:20 Gabapentin 100 Mg Capsule GT 06/19/25 14:29 100 mg TID KOURTNEY Administration Glucagon 1 mg 05/27/25 08:07 Glucagon Inj 1 Mg Vial IM Q15MIN PRN BG <70, and no IV access Heparin Sodium (Porcine) 2,700 unit 05/21/25 16:12 05/24/25 13:11 Heparin Sod Inj 1000 Unit/Ml Vial 10 Ml INDWELLCAT 06/04/25 16:11 2,700 unit X1 PRN Administration DIALYSIS Insulin Glargine 20 unit 05/27/25 21:00 Insulin Glargine (Lantus) 5 Unit/0.05 Ml (Per 5 Units) SC 06/26/25 20:59 HS KOURTNEY Insulin Glargine 50 unit 05/27/25 09:00 Insulin Glargine (Lantus) 5 Unit/0.05 Ml (Per 5 Units) SC 06/26/25 08:59 QDAY KOURTNEY Insulin Human Lispro 0 unit 05/27/25 08:18 Insulin Lispro (Admelog) 1 Unit/0.01 Ml Unit SC 06/11/25 17:59 Q6HR KOURTNEY Protocol Lansoprazole 30 mg 05/05/25 09:00 05/26/25 09:15 Lansoprazole 30 Mg Tab.Joshua. GT 06/04/25 08:59 30 mg QDAY KOURTNEY Administration Methylprednisolone Sodium Succinate 40 mg 05/22/25 21:00 05/26/25 22:13 Methylprednisolone Sod Succ 40 Mg Vial IVP 05/29/25 20:59 40 mg BID KOURTNEY Administration Pharmacy Consult 1 each 05/14/25 08:22 Pharmacy Renal Dose Adjustment 1 Ea XX 06/13/25 08:21 PRN PRN CONSULT Sennosides 2 tab 05/02/25 09:00 05/26/25 09:15 Senna Tablet GT 06/01/25 08:59 2 tab QDAY KOURTNEY Administration Protocol Sevelamer Carbonate 0.8 gm 05/20/25 09:45 05/27/25 08:15 Sevelamer Carbonate 0.8 Gm Packet (Non-Formulary) GT 06/19/25 09:44 Not Given TIDWM KOURTNEY Sodium Chloride 3 ml 05/26/25 08:02 Sodium Chloride Rt Gloria 0.9% 3 Ml Nebu INH 06/25/25 08:01 PRN PRN SOLN Sodium Hypochlorite 473 ml 05/06/25 21:00 05/27/25 08:14 Sod Hypochlorite 1/4 Str 473 Ml Btl IRRIG 06/05/25 20:59 1 applicatio BID KOURTNEY Administration Plan In summary, Mr. Ortega is a 64-year-old male with past medical history of DM2, hypertension, A-fib, and Jehova's witness was admitted to the ICU on 02/27/2025 for shock and acute on chronic hypoxic respiratory failure. He is s/p laparoscopic J-tube placement from [facility]. S/p temporary dialysis catheter placement and hemodialysis session 05/21, continue hemodialysis (next session planned for 05/27) as needed. Pending FADI. #Acute kidney injury likely 2/2 Ischemic ATN #Fluid overload Patient was admitted with acute kidney injury likely ischemic acute tubular necrosis, received temporary hemodialysis catheter placed 04/24, receiving dialysis had 1 L removed on 04/24, 2 L on 04/25, 2.14 on 04/26, 2.1 L on 04/29; temporary dialysis catheter discontinued on 05/06. Dialysis done 05/22, 05/24 (-2.4L) Plan: -Dialysis today -Continue MWF dialysis schedule -Monitor I&O's -Avoid nephrotoxic agents -Renally dose medication #Acute on Chronic Respiratory Failure secondary to mucous plug #Healthcare-Associated Pneumonia #Leukocytosis #Paroxysmal atrial fibrillation #Right diastolic CHF #Decubitus ulcer #Chronic back pain #Jejunostomy tube #Normocytic normochromic anemia #Acute on Chronic Hypoxic Hypercapnic Respiratory Failure #Obesity hypoventilation syndrome and obstructive sleep apnea #Tracheostomy #Hx of A-fib #Right internal jugular venous thrombosis #Right arm swelling #Morbid obesity #DM2 Above handled by primary hospitalist team Patient seen and care discussed with my attending physician, Dr. Teressa Fox MD PGY-1 Attending Provider Attestation/Addendum Patient seen and examined with resident physician Dr. Fox. Note reviewed, agree with findings and recommendations. BUN/creatinine elevated again-patient going into ATN. 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 Had a long conversation with the patient-agreed for temporary dialysis. Unfortunately IR cannot do permanent catheter -- agreed to do temporary catheter due to his BMI. Dialysis catheter placed by Dr. Galicia in the right IJ. Patient received dialysis session on Tuesday. Patient currently seen on dialysis. Tolerating dialysis without any problems. Hemodialysis for 3.5 hours, 2K, ultrafiltration 0 L, Epogen 6000, no heparin ordered. Plan of care discussed with the dialysis nurse. Please see dialysis flowsheet for further details. Noted significant azotemia-rule out GI bleed vs severe prerenal azotemia. NO Ultrafiltration today He will need LTAC placement with dialysis.
--- NOTE | 2025-05-27 10:34 | ESPR_ITS ---
<Statement entered by Pavel Mendoza MD - 06/03/25 14:19> I reviewed above note and agree with findings and plans. I have also personally examined the patient with medicine team and went over assessment and plan with medical team including internal sales and resident physician. Documentation for date of: 05/27/25 Senior resident attestation: Patient evaluated and examined at the bedside, plan of care discussed with rest of the team including my attending physician, except as noted. Patient on scheduled hemodialysis, getting hemodialysis today, no ultrafiltrate as patient is euvolemic, no respiratory distress, continues to stay on spontaneous mode on mechanical ventilation, afebrile, will hold off on daily CBC as patient is medically clear and stable, also noted patient is a [employer], has been getting continuous blood draws, will still continue with renal panel as patient is on hemodialysis to monitor electrolytes. Currently noted elevated glucose secondary to concurrent steroid use. Increased basal insulin Lantus to 50 units in the morning, will add 20 units of insulin Lantus at night, insulin sliding scale advanced to step 3. Anticipate insulin requirements to go back to baseline once steroids are discontinued. Quresh PGY3 Subjective Subjective Interval history: No acute events overnight. Patient seen and examined at bedside this AM. No complaints this morning. Labs and vitals were reviewed. Glucose continues to be elevated this morning, 331. Will increase nightly basal insulin dose to 20 units, and will also increase basal morning insulin to 50 units. Increased lispro to account for insulin resistance. Wound care continues to follow. Still pending LTAC and insurance agreement. Review of systems otherwise negative except what is mentioned above. Exam Vital Signs Temp Pulse Resp BP Pulse Ox O2 Del Method O2 Flow Rate 97.1 F 89 24 H 118/73 99 Mechanical Ventilation 65 05/27/25 08:00 05/27/25 10:30 05/27/25 08:00 05/27/25 10:30 05/27/25 08:00 05/27/25 04:00 05/27/25 04:00 FiO2 35 05/27/25 07:59 Narrative Exam Physical Exam: Constitutional: Alert, oriented x 3 and no acute distress. Nods and expresses self to questions, writes on white board for communication. Elderly male, morbidly obese. HEENT: Trachea midline. Tracheostomy tube in situ, exit site clean. Mouth moist. Respiratory: Chest normal on inspection and decreased air entry in all lung sims, transmitted sounds and congestion on anterior chest wall, middle and upper lobes, improved. Cardiovascular: S1 and S2 audible, RRR. No murmurs carotid bruit. No gross JVD. Abdominal: Soft, obese and non tender to palpation in all quadrants. Neurological: CN II - XII grossly intact. Extremity motor and sensation grossly intact. Extremities: 1+ pitting lower extremity edema bilaterally. Skin: Warm, dry and intact. Large sacral decubitus ulcer, necrotic tissue noted. No purulent drainage noted. Cleanly packed with dressings. Objective Labs 05/26/25 05:29 05/27/25 05:16 Labs: Laboratory Results - last 24 hr 05/27/25 05:16 Sodium 138 Potassium 5.2 H Chloride 99 Carbon Dioxide 26.3 Anion Gap 13 BUN 112 H* Creatinine 3.0 H Estim Creat Clear Calc 40.9 L eGFR 22 L BUN/Creatinine Ratio 37 H Glucose 331 H Calculated Osmolality 324 H Calcium 9.1 Corrected Calcium 9.5 Phosphorus 4.6 Albumin 3.5 ABG Interpretation ABG results: 04/18/25 04/18/25 04/18/25 04:40 06:27 10:30 ABG pH 7.28 L 7.33 L 7.36 ABG pCO2 72 H* 67 H 61 H ABG pO2 132 H 60 L D 60 L ABG HCO3 34 H 35 H 34 H ABG O2 Saturation 100 H 93 93 ABG Base Excess 6 H 7 H 8 H 04/19/25 05/10/25 08:53 07:40 ABG pH 7.47 H D 7.52 H ABG pCO2 45 D 40 ABG pO2 66 L 60 L ABG HCO3 33 H 32 H ABG O2 Saturation 96 94 ABG Base Excess 8 H 8 H Quality Measures Quality Measures VTE prophylaxis Advance care planning discussed with:: patient Assessment & Plan Assessment Current Active Medications: Generic Name Dose Route Start Last Admin Trade Name Freq PRN Reason Stop Dose Admin Acetaminophen 650 mg 05/25/25 06:14 05/25/25 06:22 Acetaminophen 325 Mg Tablet PO 06/24/25 06:13 650 mg Q4HR PRN Administration Fever >100.3, pain Protocol Hydrocodone Bitart/Acetaminophen 1 tab 05/26/25 15:50 05/26/25 16:03 Hydrocodone/Apap 5/325 Tablet GT 05/31/25 15:49 1 tab Q6HR PRN Administration PAIN SCALE 4-10(Mod-Sev Acetylcysteine 3 ml 05/10/25 15:00 05/27/25 06:50 Acetylcysteine Rt Gloria 10% 4 Ml Nebu INH 06/09/25 14:59 3 ml Q8HRRT KOURTNEY Administration Albuterol/Ipratropium 3 ml 05/10/25 15:00 05/27/25 06:50 Albuterol/Ipratropium (Duoneb) Rt Gloria 3 Ml Nebu INH 06/09/25 14:59 3 ml Q8HRRT KOURTNEY Administration Amiodarone HCl 200 mg 05/12/25 13:45 05/26/25 09:15 Amiodarone Hcl 200 Mg Tablet GT 06/11/25 13:44 200 mg QDAY KOURTNEY Administration Chlorhexidine Gluconate 15 ml 05/22/25 13:30 05/26/25 12:17 Chlorhexidine Mouthwash 0.12% Udc 15 Ml PO 06/21/25 13:29 15 ml DAILY KOURTNEY Administration Dextrose 25 ml 05/27/25 08:07 Dextrose 50%-Water Inj 50 Ml Syringe IV 06/26/25 08:06 Q15MIN PRN BG 50-70 responsive npo pt Dextrose 50 ml 05/27/25 08:07 Dextrose 50%-Water Inj 50 Ml Syringe IV 06/26/25 08:06 Q15MIN PRN BG <50 OR BG <70 & pt unresponsive Gabapentin 100 mg 05/20/25 14:30 05/27/25 05:20 Gabapentin 100 Mg Capsule GT 06/19/25 14:29 100 mg TID KOURTNEY Administration Glucagon 1 mg 05/27/25 08:07 Glucagon Inj 1 Mg Vial IM Q15MIN PRN BG <70, and no IV access Heparin Sodium (Porcine) 2,700 unit 05/21/25 16:12 05/24/25 13:11 Heparin Sod Inj 1000 Unit/Ml Vial 10 Ml INDWELLCAT 06/04/25 16:11 2,700 unit X1 PRN Administration DIALYSIS Insulin Glargine 20 unit 05/27/25 21:00 Insulin Glargine (Lantus) 5 Unit/0.05 Ml (Per 5 Units) SC 06/26/25 20:59 HS KOURTNEY Insulin Glargine 50 unit 05/27/25 09:00 Insulin Glargine (Lantus) 5 Unit/0.05 Ml (Per 5 Units) SC 06/26/25 08:59 QDAY KOURTNEY Insulin Human Lispro 0 unit 05/27/25 08:18 Insulin Lispro (Admelog) 1 Unit/0.01 Ml Unit SC 06/11/25 17:59 Q6HR KOURTNEY Protocol Lansoprazole 30 mg 05/05/25 09:00 05/26/25 09:15 Lansoprazole 30 Mg Tab.Rap. GT 06/04/25 08:59 30 mg QDAY KOURTNEY Administration Methylprednisolone Sodium Succinate 40 mg 05/22/25 21:00 05/26/25 22:13 Methylprednisolone Sod Succ 40 Mg Vial IVP 05/29/25 20:59 40 mg BID KOURTNEY Administration Pharmacy Consult 1 each 05/14/25 08:22 Pharmacy Renal Dose Adjustment 1 Ea XX 06/13/25 08:21 PRN PRN CONSULT Sennosides 2 tab 05/02/25 09:00 05/26/25 09:15 Senna Tablet GT 06/01/25 08:59 2 tab QDAY KOURTNEY Administration Protocol Sevelamer Carbonate 0.8 gm 05/20/25 09:45 05/27/25 08:15 Sevelamer Carbonate 0.8 Gm Packet (Non-Formulary) GT 06/19/25 09:44 Not Given TIDWM KOURTNEY Sodium Chloride 3 ml 05/26/25 08:02 Sodium Chloride Rt Gloria 0.9% 3 Ml Nebu INH 06/25/25 08:01 PRN PRN SOLN Sodium Hypochlorite 473 ml 05/06/25 21:00 05/27/25 08:14 Sod Hypochlorite 1/4 Str 473 Ml Btl IRRIG 06/05/25 20:59 1 applicatio BID KOURTNEY Administration Plan Patient is a 64-year-old male with morbid obesity with subsequent obesity hypoventilation syndrome requiring tracheostomy and J-tube placement, hypertension, type 2 diabetes, atrial fibrillation, right internal jugular DVT and acute kidney injury secondary to ischemic ATN requiring multiple sessions of hemodialysis and sacral ulcers status post wound VAC currently being treated for acute on chronic hypoxic respiratory failure and ischemic ATN. S/p temporary dialysis catheter placement and hemodialysis session 05/21, continue hemodialysis as needed. Pending FADI. #Acute kidney injury-suspicion of ischemic ATN, resolved #Fluid overload #Acute on chronic hypoxic respiratory failure, improving. 04/20 ? Attempt was made to place Fuller catheter however unable to pass catheter due to significant resistance and attempt was terminated. Discussed with nursing about possibility of weighing briefs daily. Patient had temporary hemodialysis catheter placed 04/24, receiving dialysis had 1 L removed on 04/24, 2 L on 04/25, 2.14 on 04/26, 2.1 L on 04/29; temporary dialysis catheter discontinued on 05/06 Patient being followed by nephrology, nephrology agrees with diuresis for now, will need close monitoring, poor candidate for dialysis due to body habitus and also has chronic anemia with wound bleeding from sacral region-plasma specialist did discuss with patient in detail, he verbalizes understanding. Bumex held on 05/15 due to worsening creatinine, continues to worsen. Due to lack of improvement despite diuretic holiday, discussed with patient today need for hemodialysis in the near future. Patient initially refused but after multiple attempts of counseling and explaining risks and benefits, including , patient was eventually agreeable. S/p temporary hemodialysis catheter placement and hemodialysis session 05/21. 4 dialysis sessions since 05/21. Plan: -Nephrology Dr. Li consulted, appreciate recommendations -Hemodialysis today -Monitor CMP -Continue antibiotics -Monitor I&O's -Avoid nephrotoxic agents -Renally dose medication #Acute on Chronic Respiratory Failure secondary to mucous plug #Healthcare-Associated Pneumonia #Leukocytosis Patient noted to have acute on chronic respiratory failure, required bronchoscopy w/ mucous plugs removed. Previous sputum Pseudomnas (04/03/2025) 05/09/2025 Bronchial washing culture grew pseudomonas, sensitive to Zosyn Vancomycin (05/09/2025-05/12/25) and doxycycline (05/12-05/13) were discontinued due to nephrotoxicity. Completed Zosyn course (05/09-05/16/25) Of note, patient has history of Pseudomonnas infection 05/21/25: Patient was having difficulty breathing this morning due to tracheostomy misalignment. Consulted ICU, plan for tracheostomy adjustment today. Plan: -s/p bronchoscopy -per ICU recommendations, continue Solumedrol 40 mg IVP BID for 5-7 days (05/22- 05/29) -resume oral and tracheostomy care -Repeat bronchoscopy at a later time -Completed Levofloxacin (05/14/25-05/21/25) -Blow-by during the day, mechanical ventilation at night as needed at baseline, currently on mechanical ventilation -DuoNeb, Mucomyst and chest physiotherapy scheduled #Paroxysmal atrial fibrillation Per cardiology there is a concern of heart block, tachybradycardia syndrome as well. CFR7YC1-CQFa score of 3 points indicating 3.2% risk of stroke per year HAS-BLED: 3. High risk of major bleeding 05/13: Discussed with glass washer and carrier?will start on amiodarone previous dose, 200 mg daily. Per cardiology patient is a poor candidate for pacemaker placement, patient was informed at bedside by cardiology team. He verbalized understanding. Plan: - Continue amiodarone. - Cardiology consulted, appreciate recommendations - Patient will need anticoagulation, however has low hemoglobin, bleeding wound will defer anticoagulation #Congestive heart failure, HFpEF 65% #Diastolic dysfunction, grade 3 #Pulmonary hypertension #Right heart failure #BASIA/OHS #Moderate to severe a AOV calcification with no stenosis Patient has a past medical history of right heart faillure, Diastolic dysfucntion, and HFpEF 65% likely in the setting of cardiomypoathy seconadary to morbid obesity form BASIA/OHS. Given Cxr noted with prominent vascular congestion, consider repeat BNP, although hemodynamically unstable given pressors but may consider. No pheriphearl edema noted. Cxr (05/09/2025): Mild Heart Failure, Prominent vascular congestion and Moderate to large right pleural effusion Echo (04/29/2025): Normal LV size and function. Estimated EF of 65%. Grade III Diastolic Dysfunction.Right ventricle is dilated with mild RV dysfunction RVSP 47mmHg. RAP 15mmHg.Severe biatrial dilation.Moderate to Severe AOV calcification with no stenosis <ild tricuspid regurgitation. No pericardial effusion. Plan -On hemodialysis as above -Recommended patient to sit up in bed to help relieve IVC pressure -Cardiology consulted -Patient 1500 cc/day fluid restriction, daily weights, tube feeds resumed -K >4 and Mg >2 #Decubitus ulcer status post excisional debridement of sacral decubitus ulcer Recent debridement of large decubitus ulcer on 05/02/2025 likely secondary to morbid obestiy and lack of mobility. 04/29: excisional debridement of sacral decubitus ulcer, washout and placement of wound VAC. 05/02: Patient had significant bleeding overnight, wound VAC leaked. Hemoglobin stable this morning, patient's bleeding from wound overnight was controlled with suture ligation. Wound was assessed by general surgeon, patient was transitioned back to red dry dressings daily. Plan: -Wound care following - [place] for pain as needed #Jejunostomy tube #Abdominal abscess - resolved Patient report said that there was an intra-abdominal abscess that have could have been from a perforated ulcer in the past See also note reviewed, mentions that patient likely had a marginal ulcer, but also was not seen on EGD without, currently patient has no abdominal tenderness and is totally asymptomatic. No current drain at this time Patient is status post laparoscopic J-tube placement and is currently on feeds Patient will continue to have this tube and will likely go to a long-term care facility with this until patient can swallow safely Plan: ? Monitor vitals closely #Normocytic normochromic anemia - stable Multifactorial. Patient's baseline hemoglobin throughout the hospitalization has been in the range 9?11, patient did have some bleeding from wound VAC site on 05/02 which was controlled by suture ligation by general surgery. Had recurrent bleeding and eventually heparin drip was held. Hgb continues to hover around 7- 8. - Patient is a [employer], denies any blood transfusion/blood products - Monitor CBC #Right internal jugular venous thrombosis #Right arm swelling Continuing free water flushes, patient has gone multiple days of heparin drip since 04/01 Right upper extremity ultrasound May 04-shows right IJ thrombus Plan: ? Continue to hold heparin drip due to recurrent sacral ulcer bleeding #Morbid obesity #DM2 A1C 7.6 on 03/05/2025 Patient has a BMI of 79.5->68.7 Attempted to prescribe tirzepatide to outside pharmacy to bring inpatient however no one is able to pick it up for the patient. Worsening hyperglycemia secondary to IV steroids for bronch. Plan: - ISS scale 3 - Hypoglycemia protocol - 50 units of Lantus AM, and 20 units Lantus at night, will reevaluate insulin requirements based on glucose monitoring for 24 hours. Health Maintenance Disposition: Pending LTAC DVT prophylaxis: SCDs, patient is [employer]al and has bleeding sacral wound GI prophylaxis: Protonix Diet: 2Cal Tube Feeds with 30 cc/hour water flush CODE STATUS: Full code Patient plan of care was discussed with the senior resident, Dr. Tobar, and attending physician, Dr. Mendoza. Meena Dutta, PGY-1
[2025-05-27] MEDS: EPOETIN ALFA-EPBX INJ 10,000 UNIT/ML VIAL (ESRD) 10000 UNIT SC (11:30)
[2025-05-27] MEDS: HEPARIN SOD INJ 1000 UNIT/ML VIAL 10 ML 2700 UNIT INDWELLCAT (11:36)
[2025-05-27] MEDS: CHLORHEXIDINE MOUTHWASH 0.12% UDC 15 ML PO (12:03)
[2025-05-27] MEDS: SEVELAMER CARBONATE 0.8 GM PACKET (NON-FORMULARY) GT ×2 (12:03→16:47)
[2025-05-27] MEDS: AMIODARONE HCL 200 MG TABLET GT (12:04)
[2025-05-27] MEDS: INSULIN GLARGINE (Lantus) 5 UNIT/0.05 ML (PER 5 UNITS) 50 UNIT SC (12:05)
[2025-05-27] MEDS: LANSOPRAZOLE 30 MG TAB.RAP.DR GT (12:05)
[2025-05-27] MEDS: HYDROcodone/APAP 5/325 TABLET 1 TAB GT (12:40)
--- NOTE | 2025-05-27 15:18 | ESPR_ITS ---
<Statement entered by Lenora John MD - 05/30/25 14:43> I personally evaluated the patient with PGY 2 Dr. Sanchez PGY 2 resident physician and agree with the treatment plan recommendation patient currently stable he is in dialysis now for CKD stage V also tracheostomy on ventilator spontaneous breathing and stable clinically remains in A-fib rate controlled. Agree with treatment plan recommendation as documented by PGY 2 Documentation for date of: 05/27/25 Subjective Subjective Interval history: Patient is seen at bedside currently on spontaneous pressure support. Endorses to feeling okay and does not have any cardiac complaints. Vitals are stable, telemetry is reviewed patient is in A-fib rate controlled. Will continue current management of amiodarone 200 mg through G-tube. Labs are reviewed BUN 112, creatinine 3.0, GFR 22, Glucose is again in the 300's, Pt's lantus is increased. Pt underwent dialysis today, Nephrology team is on board following the patient. Exam Vital Signs Temp Pulse Resp BP Pulse Ox O2 Del Method O2 Flow Rate 97.0 F 82 16 131/61 H 93 L Mechanical Ventilation 65 05/27/25 12:00 05/27/25 12:04 05/27/25 12:00 05/27/25 12:04 05/27/25 12:00 05/27/25 12:00 05/27/25 04:00 FiO2 35 05/27/25 10:46 Narrative Exam General: Awake. obese. Tracheostomy tube insitu on SIMV mode HEENT: Normocephalic, atraumatic, mucous membranes moist. Heart: IRRegular rate and rhythm, no murmurs. Lungs: Clear to auscultation with no wheezing or crackles. But noted decreased breath sounds bilaterally in view of body habitus. noted right IJV catheter on right side Abdomen: Soft, nondistended, nontender, positive bowel sounds. ?No guarding or rebound tenderness. Neurologic: Alert and oriented x3, no gross neurological deficit, and patient able to move all 4 extremities. Extremities: No edema. Skin: Large sacral ulcer in the gluteal region, Decubitus Grade III/IV Objective Labs 05/26/25 05:29 05/27/25 05:16 Labs: Laboratory Results - last 24 hr 05/27/25 05:16 Sodium 138 Potassium 5.2 H Chloride 99 Carbon Dioxide 26.3 Anion Gap 13 BUN 112 H* Creatinine 3.0 H Estim Creat Clear Calc 40.9 L eGFR 22 L BUN/Creatinine Ratio 37 H Glucose 331 H Calculated Osmolality 324 H Calcium 9.1 Corrected Calcium 9.5 Phosphorus 4.6 Albumin 3.5 ABG Interpretation ABG results: 04/18/25 04/18/25 04/18/25 04:40 06:27 10:30 ABG pH 7.28 L 7.33 L 7.36 ABG pCO2 72 H* 67 H 61 H ABG pO2 132 H 60 L D 60 L ABG HCO3 34 H 35 H 34 H ABG O2 Saturation 100 H 93 93 ABG Base Excess 6 H 7 H 8 H 04/19/25 05/10/25 08:53 07:40 ABG pH 7.47 H D 7.52 H ABG pCO2 45 D 40 ABG pO2 66 L 60 L ABG HCO3 33 H 32 H ABG O2 Saturation 96 94 ABG Base Excess 8 H 8 H Quality Measures Quality Measures VTE prophylaxis Advance care planning discussed with:: patient Assessment & Plan Assessment Current Active Medications: Generic Name Dose Route Start Last Admin Trade Name Freq PRN Reason Stop Dose Admin Acetaminophen 650 mg 05/25/25 06:14 05/25/25 06:22 Acetaminophen 325 Mg Tablet PO 06/24/25 06:13 650 mg Q4HR PRN Administration Fever >100.3, pain Protocol Hydrocodone Bitart/Acetaminophen 1 tab 05/26/25 15:50 05/27/25 12:40 Hydrocodone/Apap 5/325 Tablet GT 05/31/25 15:49 1 tab Q6HR PRN Administration PAIN SCALE 4-10(Mod-Sev Acetylcysteine 3 ml 05/10/25 15:00 05/27/25 15:17 Acetylcysteine Rt Gloria 10% 4 Ml Nebu INH 06/09/25 14:59 3 ml Q8HRRT KOURTNEY Administration Albuterol/Ipratropium 3 ml 05/10/25 15:00 05/27/25 15:17 Albuterol/Ipratropium (Duoneb) Rt Gloria 3 Ml Nebu INH 06/09/25 14:59 3 ml Q8HRRT KOURTNEY Administration Amiodarone HCl 200 mg 05/12/25 13:45 05/27/25 12:04 Amiodarone Hcl 200 Mg Tablet GT 06/11/25 13:44 200 mg QDAY KOURTNEY Administration Chlorhexidine Gluconate 15 ml 05/22/25 13:30 05/27/25 12:03 Chlorhexidine Mouthwash 0.12% Udc 15 Ml PO 06/21/25 13:29 15 ml DAILY KOURTNEY Administration Dextrose 25 ml 05/27/25 08:07 Dextrose 50%-Water Inj 50 Ml Syringe IV 06/26/25 08:06 Q15MIN PRN BG 50-70 responsive npo pt Dextrose 50 ml 05/27/25 08:07 Dextrose 50%-Water Inj 50 Ml Syringe IV 06/26/25 08:06 Q15MIN PRN BG <50 OR BG <70 & pt unresponsive Gabapentin 100 mg 05/20/25 14:30 05/27/25 14:32 Gabapentin 100 Mg Capsule GT 06/19/25 14:29 100 mg TID KOURTNEY Administration Glucagon 1 mg 05/27/25 08:07 Glucagon Inj 1 Mg Vial IM Q15MIN PRN BG <70, and no IV access Heparin Sodium (Porcine) 2,700 unit 05/21/25 16:12 05/27/25 11:36 Heparin Sod Inj 1000 Unit/Ml Vial 10 Ml INDWELLCAT 06/04/25 16:11 2,700 unit X1 PRN Administration DIALYSIS Insulin Glargine 20 unit 05/27/25 21:00 Insulin Glargine (Lantus) 5 Unit/0.05 Ml (Per 5 Units) DE 06/26/25 20:59 HS [facility] Insulin Glargine 50 unit 05/27/25 09:00 05/27/25 12:05 Insulin Glargine (Lantus) 5 Unit/0.05 Ml (Per 5 Units) DE 06/26/25 08:59 50 unit QDAY KOURTNEY Administration Insulin Human Lispro 0 unit 05/27/25 08:18 05/27/25 12:07 Insulin Lispro (Admelog) 1 Unit/0.01 Ml Unit SC 06/11/25 17:59 4 unit Q6HR KOURTNEY Administration Protocol Lansoprazole 30 mg 05/05/25 09:00 05/27/25 12:05 Lansoprazole 30 Mg Tab. GT 06/04/25 08:59 30 mg QDAY KOURTNEY Administration Methylprednisolone Sodium Succinate 40 mg 05/22/25 21:00 05/27/25 12:06 Methylprednisolone Sod Succ 40 Mg Vial IVP 05/29/25 20:59 40 mg BID KOURTNEY Administration Pharmacy Consult 1 each 05/14/25 08:22 Pharmacy Renal Dose Adjustment 1 Ea XX 06/13/25 08:21 PRN PRN CONSULT Sennosides 2 tab 05/02/25 09:00 05/27/25 12:04 Senna Tablet GT 06/01/25 08:59 2 tab QDAY KOURTNEY Administration Protocol Sevelamer Carbonate 0.8 gm 05/20/25 09:45 05/27/25 12:03 Sevelamer Carbonate 0.8 Gm Packet (Non-Formulary) GT 06/19/25 09:44 0.8 gm TIDWM KOURTNEY Administration Sodium Chloride 3 ml 05/26/25 08:02 Sodium Chloride Rt Gloria 0.9% 3 Ml Nebu INH 06/25/25 08:01 PRN PRN SOLN Sodium Hypochlorite 473 ml 05/06/25 21:00 05/27/25 08:14 Sod Hypochlorite 1/4 Str 473 Ml Btl IRRIG 06/05/25 20:59 1 applicatio BID KOURTNEY Administration Plan Mr. Ortega is a 64-year-old male, Yarsanism with a past medical history of hypertension, diabetes mellitus type 2, history of atrial fibrillation, CHF HFpEF 65%, grade 3 diastolic dysfunction, right heart failure, RSVP 47, moderate to severe ALB calsifications with no stenosis, status post tracheostomy, s/p PEG Tube at [facility], bariatric team, history of dyspahagia, extensive decubitus ulcers, CKD, history of anemia, history of Diego-en- Y gastric bypass, BASIA/OHS, and morbid obesity. Patient was upgraded to ICU for a third time with in acute respiratory respiratory failure secondary to mucous plug and shock, likely cardiogenic shock secondary to complete heart block requiring pressors and downgraded again # A-fib with RVR - s/p cardioversion ---> CVR # Bradycardia and questionable complete heart block, resolved - Patient was hypoxic and was transferred to the ICU on 05/09/2025. - Cardiology was consulted 05/09/2025 for significant bradycardia requiring external temporary transcutaneous pacing. - Plan was to place a temporary transvenous pacemaker if the patient continues to be bradycardic as he was 100% dependent on the transcutaneous pacing. - Bronchoscopy was performed which showed small mucous plug which was removed and patient rhythm was back to his atrial fibrillation with RVR. - Patient was on dopamine at that point of time. Patient blood pressure was on the lower side and was unstable and required cardioversion x 1. - Patient was on levophed and phenylephrine for a short period of time. - Patient is presently ventilator dependent and has a tracheostomy in place along with a jejunostomy. Plan - Recommend to continue telemetry monitoring - In view of ongoing sacral ulcer with recurrent infections, pacemaker placement cannot be done. But fortunately patient did not have any further episodes of bradycardia. So no need of pacemaker placement as of now - Recommended to continue amiodarone 200 Mg G-tube once daily - As patient had large decubitus ulcer and has tendency to bleed, anticoagulation is held for now # H/O CHF, HFpEF 65% #Diastolic dysfunction, grade 3 #Pulmonary hypertension #BASIA/OHS #Moderate to severe a AOV calcification with no stenosis #Moderate Right Pleural Effusion - Patient has a past medical history of right heart failure, Diastolic dysfunction, and HFpEF 65% likely in the setting of cardiomypoathy secondary to morbid obesity form BASIA/OHS. - [place] [facility] 03/19/2025: RAP 8, PAP 27, PCWP 7. - Echo (04/29/2025): Normal LV size and function. Estimated EF of 65%. Grade III Diastolic Dysfunction.Right ventricle is dilated with mild RV dysfunction RVSP 47mmHg. RAP 15mmHg.Severe biatrial dilation.Moderate to Severe AOV calcification with no stenosis <ild tricuspid regurgitation. No pericardial effusion. - Echo (05/14/2025) : Normal LV size and function. Estimated EF is 55 to 60%. Severely RA dilated right ventricle as well as right atrium. IVS flattening noted both in systole and diastole indicating both pressure and volume overload Plan -Recommended to hold diuresis for now due to kidney function and pt does not appear to be fluid overloaded -Pt will be getting dialysis on 05/21/25 -K >4 and Mg >2 #Acute on Chronic Respiratory Failure secondary to mucus plug #Healthcare-Associated Pneumonia #Leukocytosis #Large Sacral Decubitus Ulcer s/p excisional debridement (05/02/2025) #CKD stage III #Jejunostomy #History of abdominal abscess s/p percutaneous drainage #Diabetes Mellitus Type 2 non insulin depedent #Normocytic Anemia Management of rest of the medical conditions as per primary team and other consultants. Thank you for the consult and allowing us to participate in the care of the patient. Cardiology will continue to follow. Patient plan of care was discussed with the [employer] Dr. Alvaro Sanchez, PGY2
--- NOTE | 2025-05-27 17:08 | XR_ITS ---
Examination: AP chest single view TECHNIQUE: AP semiupright portable chest single view Date and time: May 27, 2025 1713 hours Comparison May 21, 2025 INDICATIONS: Difficulty breathing, clinical diagnosis mucous plug today FINDINGS: Mild heart failure. Mild to moderate enlargement cardiac contour with central vascular congestion and prominent vascular congestion Right internal jugular dialysis catheter tip SVC satisfactory position Tracheostomy tube tip 6.1 cm above Meggan IMPRESSION: Mild chronic heart failure pattern. No atelectasis or lobar pneumonia
[2025-05-27] MEDS: INSULIN GLARGINE (Lantus) 5 UNIT/0.05 ML (PER 5 UNITS) 20 UNIT SC (21:11)
[2025-05-28] VITALS (15 sets, daily range): BP systolic 100–125; BP diastolic 71–98; PULSE 78–113; RESP 14–25; TEMP 35.9–36.4; O2SAT 93–99
[2025-05-28] MEDS: ALBUTEROL/IPRATROPIUM (Duoneb) RT SOL 3 ML NEBU INH ×4 (00:08→18:29)
[2025-05-28] MEDS: INSULIN LISPRO (AdmeLOG) 1 UNIT/0.01 ML UNIT SC ×4 (00:49→18:04)
[2025-05-28] MEDS: GABAPENTIN 100 MG CAPSULE GT ×3 (06:07→21:33)
[2025-05-28 06:34] LABS: Albumin, Serum 3.3 gm/dL (3.4-4.8); Anion Gap 11 (7-16); BUN/Creatinine Ratio 40 Ratio (12-20); Blood Urea Nitrogen 92 mg/dL (9-23); Calcium 9.0 mg/dL (8.3-10.6); Calcium (Corrected) 9.6 mg/dL (8.5-10.1); Carbon Dioxide 29.4 mMol/L (20.0-31.0); Chloride 98 mMol/L (98-107); Creatinine (Component) 2.3 mg/dL (0.6-1.3); Estimated Creatinine Clearance 53.3 mL/min (>60); Glucose 245 mg/dL (74-106); Osmolality,Calculated 311 (275-295); Phosphorous 4.9 mg/dL (2.4-5.1); Potassium 4.7 mMol/L (3.4-5.1); Sodium 138 mMol/L (136-145); eGFR 31 See Note
[2025-05-28] MEDS: ACETYLCYSTEINE RT SOL 10% 4 ML NEBU 3 ML INH ×3 (07:09→23:58)
[2025-05-28] MEDS: SOD HYPOCHLORITE 1/4 STR 473 ML BTL IRRIG ×2 (09:03→21:22)
[2025-05-28] MEDS: LANSOPRAZOLE 30 MG TAB.RAP.DR GT (09:04)
[2025-05-28] MEDS: AMIODARONE HCL 200 MG TABLET GT (09:04)
[2025-05-28] MEDS: CHLORHEXIDINE MOUTHWASH 0.12% UDC 15 ML PO (09:05)
[2025-05-28] MEDS: SEVELAMER CARBONATE 0.8 GM PACKET (NON-FORMULARY) GT ×3 (09:05→17:54)
[2025-05-28] MEDS: INSULIN GLARGINE (Lantus) 5 UNIT/0.05 ML (PER 5 UNITS) 50 UNIT SC (09:08)
--- NOTE | 2025-05-28 09:30 | ESPR_ITS ---
Documentation for date of: 05/28/25 Subjective Subjective Interval history: Mr. Ortega is a 64-year-old male with a past medical history of type 2 diabetes mellitus, history of ATN, A-fib, hypertension, severe right-sided heart failure, HFpEF, severe BASIA, status post tracheostomy and jejunostomy, patient was previously admitted here for hypoxic respiratory failure requiring mechanical ventilation, was later transferred out to [facility] for jejunostomy tube placement, complicated by abdominal abscess, patient is now transferred back to [facility] for further management. The patient was initially noted to have pneumonia and acute hypoxic respiratory failure, requiring mechanical ventilation, nephrology was consulted as patient's renal function continues to worsen. Patient had previously required hemodialysis for ATN, but is a poor dialysis candidate outpatient. 05/24/2025 No acute overnight events. Patient denies any new complaints/concerns. Urine output 887 ml last 24 hours. The plan is for the patient to receive dialysis today; kidney function tests continue to improve with dialysis. Patient denies any chest pain, shortness of breath, abdominal pain. 05/25/2025: No acute overnight events. Patient seen and examined at bedside. Dialysis done yesterday with -2.4L removed. Patient is feeling well today. No new complaints. Denies chest pain or fever. 05/26/2025: No acute overnight events. Patient seen and examined at bedside. Plan for dialysis Tuesday. Patient is feeling well today. No new complaints. Denies fever, chest pain, palpitations, shortness of breath. 05/27/2025: No acute events overnight. Patient seen and examined at bedside. Patient is getting dialysis. Patient says his breathing is on and off. Currently doing fine right now though. No new complaints. Denies fever, chest pain, palpitations, shortness of breath. 05/28/2025: No acute events overnight. Patient seen and examined at bedside. Patient is not getting dialysis today, will plan to have it done 05/29. Patient's labs and vitals were reviewed. Patient says his breathing is currently not bothering him. No new complaints. Denies fever, chest pain, palpitations, shortness of breath. Exam Vital Signs Temp Pulse Resp BP Pulse Ox O2 Del Method O2 Flow Rate 96.8 F 86 16 125/80 99 Mechanical Ventilation 65 05/28/25 08:00 05/28/25 09:04 05/28/25 08:00 05/28/25 09:04 05/28/25 08:00 05/28/25 08:00 05/28/25 08:00 FiO2 35 05/28/25 08:00 Narrative Exam GENERAL APPEARANCE: Awake, alert and oriented. No acute distress. NECK: Neck supple, no JVD or bruit, R IJ dialysis catheter CARDIOVASCULAR: Heart rate regular, no murmurs LUNGS/CHEST: Lungs have somme bilateral rhonchi sounds ABDOMEN: Soft, nontender, nondistended. No masses. Normal bowel sounds. EXTREMITIES: mild edema in the lower extremities, mild upper extremity edema SKIN/MSK: Skin in warm, dry and intact without rashes or lesions. Appropriate color for ethnicity. Nailbeds pink with no cyanosis or clubbing. PSYCHIATRIC: Appropriate mood and affect. NEUROLOGICAL : No neurological deficits Objective Labs 05/26/25 05:29 05/28/25 05:29 Labs: Laboratory Results - last 24 hr 05/28/25 05:29 Sodium 138 Potassium 4.7 D Chloride 98 Carbon Dioxide 29.4 Anion Gap 11 BUN 92 H Creatinine 2.3 H D Estim Creat Clear Calc 53.3 L eGFR 31 L BUN/Creatinine Ratio 40 H Glucose 245 H D Calculated Osmolality 311 H Calcium 9.0 Corrected Calcium 9.6 Phosphorus 4.9 Albumin 3.3 L ABG Interpretation ABG results: 04/18/25 04/18/25 04/18/25 04:40 06:27 10:30 ABG pH 7.28 L 7.33 L 7.36 ABG pCO2 72 H* 67 H 61 H ABG pO2 132 H 60 L D 60 L ABG HCO3 34 H 35 H 34 H ABG O2 Saturation 100 H 93 93 ABG Base Excess 6 H 7 H 8 H 04/19/25 05/10/25 08:53 07:40 ABG pH 7.47 H D 7.52 H ABG pCO2 45 D 40 ABG pO2 66 L 60 L ABG HCO3 33 H 32 H ABG O2 Saturation 96 94 ABG Base Excess 8 H 8 H Quality Measures Quality Measures VTE prophylaxis Advance care planning discussed with:: patient Assessment & Plan Assessment Current Active Medications: Generic Name Dose Route Start Last Admin Trade Name Freq PRN Reason Stop Dose Admin Acetaminophen 650 mg 05/25/25 06:14 05/25/25 06:22 Acetaminophen 325 Mg Tablet PO 06/24/25 06:13 650 mg Q4HR PRN Administration Fever >100.3, pain Protocol Hydrocodone Bitart/Acetaminophen 1 tab 05/26/25 15:50 05/27/25 12:40 Hydrocodone/Apap 5/325 Tablet GT 05/31/25 15:49 1 tab Q6HR PRN Administration PAIN SCALE 4-10(Mod-Sev Acetylcysteine 3 ml 05/10/25 15:00 05/28/25 07:09 Acetylcysteine Rt Gloria 10% 4 Ml Nebu INH 06/09/25 14:59 3 ml Q8HRRT KOURTNEY Administration Albuterol/Ipratropium 3 ml 05/27/25 19:00 05/28/25 07:10 Albuterol/Ipratropium (Duoneb) Rt Gloria 3 Ml Nebu INH 06/26/25 18:59 3 ml Q6HRRT KOURTNEY Administration Amiodarone HCl 200 mg 05/12/25 13:45 05/28/25 09:04 Amiodarone Hcl 200 Mg Tablet GT 06/11/25 13:44 200 mg QDAY KOURTNEY Administration Chlorhexidine Gluconate 15 ml 05/22/25 13:30 05/28/25 09:05 Chlorhexidine Mouthwash 0.12% Udc 15 Ml PO 06/21/25 13:29 15 ml DAILY KOURTNEY Administration Dextrose 25 ml 05/27/25 08:07 Dextrose 50%-Water Inj 50 Ml Syringe IV 06/26/25 08:06 Q15MIN PRN BG 50-70 responsive npo pt Dextrose 50 ml 05/27/25 08:07 Dextrose 50%-Water Inj 50 Ml Syringe IV 06/26/25 08:06 Q15MIN PRN BG <50 OR BG <70 & pt unresponsive Gabapentin 100 mg 05/20/25 14:30 05/28/25 06:07 Gabapentin 100 Mg Capsule GT 06/19/25 14:29 100 mg TID KOURTNEY Administration Glucagon 1 mg 05/27/25 08:07 Glucagon Inj 1 Mg Vial IM Q15MIN PRN BG <70, and no IV access Heparin Sodium (Porcine) 2,700 unit 05/21/25 16:12 05/27/25 11:36 Heparin Sod Inj 1000 Unit/Ml Vial 10 Ml INDWELLCAT 06/04/25 16:11 2,700 unit X1 PRN Administration DIALYSIS Insulin Glargine 50 unit 05/27/25 09:00 05/28/25 09:08 Insulin Glargine (Lantus) 5 Unit/0.05 Ml (Per 5 Units) SC 06/26/25 08:59 50 unit QDAY KOURTNEY Administration Insulin Glargine 30 unit 05/28/25 21:00 Insulin Glargine (Lantus) 5 Unit/0.05 Ml (Per 5 Units) SC 06/27/25 20:59 HS KOURTNEY Insulin Human Lispro 0 unit 05/27/25 08:18 05/28/25 06:07 Insulin Lispro (Admelog) 1 Unit/0.01 Ml Unit SC 06/11/25 17:59 4 unit Q6HR KOURTNEY Administration Protocol Lansoprazole 30 mg 05/05/25 09:00 05/28/25 09:04 Lansoprazole 30 Mg Tab.Rap. GT 06/04/25 08:59 30 mg QDAY KOURTNEY Administration Methylprednisolone Sodium Succinate 40 mg 05/22/25 21:00 05/28/25 09:04 Methylprednisolone Sod Succ 40 Mg Vial IVP 05/29/25 20:59 40 mg BID KOURTNEY Administration Pharmacy Consult 1 each 05/14/25 08:22 Pharmacy Renal Dose Adjustment 1 Ea XX 06/13/25 08:21 PRN PRN CONSULT Sennosides 2 tab 05/02/25 09:00 05/28/25 09:03 Senna Tablet GT 06/01/25 08:59 2 tab QDAY KOURTNEY Administration Protocol Sevelamer Carbonate 0.8 gm 05/20/25 09:45 05/28/25 09:05 Sevelamer Carbonate 0.8 Gm Packet (Non-Formulary) GT 06/19/25 09:44 0.8 gm TIDWM KOURTNEY Administration Sodium Chloride 3 ml 05/26/25 08:02 Sodium Chloride Rt Gloria 0.9% 3 Ml Nebu INH 06/25/25 08:01 PRN PRN SOLN Sodium Hypochlorite 473 ml 05/06/25 21:00 05/28/25 09:03 Sod Hypochlorite 1/4 Str 473 Ml Btl IRRIG 06/05/25 20:59 1 applicatio BID KOURTNEY Administration Plan In summary, Mr. Ortega is a 64-year-old male with past medical history of DM2, hypertension, A-fib, and Jehova's witness was admitted to the ICU on 02/27/2025 for shock and acute on chronic hypoxic respiratory failure. He is s/p laparoscopic J-tube placement from [facility]. S/p temporary dialysis catheter placement and hemodialysis session 05/21, continue hemodialysis (next session planned for 05/27) as needed. Pending FADI. #Acute kidney injury likely 2/2 Ischemic ATN #Fluid overload Patient was admitted with acute kidney injury likely ischemic acute tubular necrosis, received temporary hemodialysis catheter placed 04/24, receiving dialysis had 1 L removed on 04/24, 2 L on 04/25, 2.14 on 04/26, 2.1 L on 04/29; temporary dialysis catheter discontinued on 05/06. Plan: -Dialysis Wed (05/29) -Continue MWF dialysis schedule -Monitor I&O's -Avoid nephrotoxic agents -Renally dose medication #Acute on Chronic Respiratory Failure secondary to mucous plug #Healthcare-Associated Pneumonia #Leukocytosis #Paroxysmal atrial fibrillation #Right diastolic CHF #Decubitus ulcer #Chronic back pain #Jejunostomy tube #Normocytic normochromic anemia #Acute on Chronic Hypoxic Hypercapnic Respiratory Failure #Obesity hypoventilation syndrome and obstructive sleep apnea #Tracheostomy #Hx of A-fib #Right internal jugular venous thrombosis #Right arm swelling #Morbid obesity #DM2 Above handled by primary hospitalist team Patient seen and care discussed with my attending physician, Dr. Teressa Fox MD PGY-1 Attending Provider Attestation/Addendum Patient seen and examined with resident physician Dr. Fox. Note reviewed, agree with findings and recommendations. BUN/creatinine elevated again-patient going into ATN. Edema ++ Labs 3 times weekly with pediatric tubes due to his Muslim status. Had a long conversation with the patient-agreed for temporary dialysis. Unfortunately IR cannot do permanent catheter -- agreed to do temporary catheter due to his BMI. Dialysis catheter placed by Dr. Galicia in the right IJ. Next dialysis scheduled for tomorrow. He will need LTAC placement with dialysis.
--- NOTE | 2025-05-28 10:41 | PC.SS ---
SS has communicated with patient's health insurance and FADI (Letter of Agreement) is still pending for [facility] placement. SS met with pt who is aware.
--- NOTE | 2025-05-28 11:35 | ESPR_ITS ---
<Statement entered by Pavel Mendoza MD - 06/03/25 14:20> I reviewed above note and agree with findings and plans. I have also personally examined the patient with medicine team and went over assessment and plan with medical team including process engineering intern and resident physician. Documentation for date of: 05/28/2025 No overnight events. Patient continues to be mechanically ventilated via tracheostomy. No dialysis planned for today, likely tomorrow. Patient is set to complete last day of methyprednisolone on 05/29/2025. Hyperglycemic since starting methyprednisolone, no history of diabetes mellitus.Glargine 50 units qday and Glargine 30 units HS. Continue Sliding scale. If patient experiences increased work of breathing, please check cuff is deflated, no leaks, and no mucus plugs (may flush). Patient pending LTAC. Subjective Subjective Interval history: Still pending LTAC insurance agreement. Patient seen at bedside this a.m. No complaints at this time. Denies chest pain, shortness of breath. Wound care still following for sacral wound, doing well. On mechanical ventilation, respiratory therapy is following. Labs and vitals were reviewed. Glucose 245 today. Will increase night lispro to 30 units, continue morning lispro 50 units. Will remove at night dose after IV steroid course finished on 05/29. 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 Review of systems otherwise negative except what is mentioned above. Exam Vital Signs Temp Pulse Resp BP Pulse Ox O2 Del Method O2 Flow Rate 96.8 F 86 16 125/80 99 Mechanical Ventilation 65 05/28/25 08:00 05/28/25 09:04 05/28/25 08:00 05/28/25 09:04 05/28/25 08:00 05/28/25 08:00 05/28/25 08:00 FiO2 35 05/28/25 08:00 Narrative Exam Physical Exam: Constitutional: Alert, oriented x 3 and no acute distress. Nods and expresses self to questions, writes on white board for communication. Elderly male, morbidly obese. HEENT: Trachea midline. Tracheostomy tube in situ, exit site clean. Mouth moist. Respiratory: Chest normal on inspection and decreased air entry in all lung sims, transmitted sounds and congestion on anterior chest wall, middle and upper lobes, improved. Cardiovascular: S1 and S2 audible, RRR. No murmurs carotid bruit. No gross JVD. Abdominal: Soft, obese and non tender to palpation in all quadrants. Neurological: CN II - XII grossly intact. Extremity motor and sensation grossly intact. Extremities: 1+ pitting lower extremity edema bilaterally. Skin: Warm, dry and intact. Large sacral decubitus ulcer, necrotic tissue noted. No purulent drainage noted. Cleanly packed with dressings. Objective Labs 05/26/25 05:29 05/28/25 05:29 Labs: Laboratory Results - last 24 hr 05/28/25 05:29 Sodium 138 Potassium 4.7 D Chloride 98 Carbon Dioxide 29.4 Anion Gap 11 BUN 92 H Creatinine 2.3 H D Estim Creat Clear Calc 53.3 L eGFR 31 L BUN/Creatinine Ratio 40 H Glucose 245 H D Calculated Osmolality 311 H Calcium 9.0 Corrected Calcium 9.6 Phosphorus 4.9 Albumin 3.3 L ABG Interpretation ABG results: 04/18/25 04/18/25 04/18/25 04:40 06:27 10:30 ABG pH 7.28 L 7.33 L 7.36 ABG pCO2 72 H* 67 H 61 H ABG pO2 132 H 60 L D 60 L ABG HCO3 34 H 35 H 34 H ABG O2 Saturation 100 H 93 93 ABG Base Excess 6 H 7 H 8 H 04/19/25 05/10/25 08:53 07:40 ABG pH 7.47 H D 7.52 H ABG pCO2 45 D 40 ABG pO2 66 L 60 L ABG HCO3 33 H 32 H ABG O2 Saturation 96 94 ABG Base Excess 8 H 8 H Quality Measures Quality Measures VTE prophylaxis Advance care planning discussed with:: patient Assessment & Plan Assessment Current Active Medications: Generic Name Dose Route Start Last Admin Trade Name Freq PRN Reason Stop Dose Admin Acetaminophen 650 mg 05/25/25 06:14 05/25/25 06:22 Acetaminophen 325 Mg Tablet PO 06/24/25 06:13 650 mg Q4HR PRN Administration Fever >100.3, pain Protocol Hydrocodone Bitart/Acetaminophen 1 tab 05/26/25 15:50 05/27/25 12:40 Hydrocodone/Apap 5/325 Tablet GT 05/31/25 15:49 1 tab Q6HR PRN Administration PAIN SCALE 4-10(Mod-Sev Acetylcysteine 3 ml 05/10/25 15:00 05/28/25 07:09 Acetylcysteine Rt Gloria 10% 4 Ml Nebu INH 06/09/25 14:59 3 ml Q8HRRT KOURTNEY Administration Albuterol/Ipratropium 3 ml 05/27/25 19:00 05/28/25 07:10 Albuterol/Ipratropium (Duoneb) Rt Gloria 3 Ml Nebu INH 06/26/25 18:59 3 ml Q6HRRT KOURTNEY Administration Amiodarone HCl 200 mg 05/12/25 13:45 05/28/25 09:04 Amiodarone Hcl 200 Mg Tablet GT 06/11/25 13:44 200 mg QDAY KOURTNEY Administration Chlorhexidine Gluconate 15 ml 05/22/25 13:30 05/28/25 09:05 Chlorhexidine Mouthwash 0.12% Udc 15 Ml PO 06/21/25 13:29 15 ml DAILY KOURTNEY Administration Dextrose 25 ml 05/27/25 08:07 Dextrose 50%-Water Inj 50 Ml Syringe IV 06/26/25 08:06 Q15MIN PRN BG 50-70 responsive npo pt Dextrose 50 ml 05/27/25 08:07 Dextrose 50%-Water Inj 50 Ml Syringe IV 06/26/25 08:06 Q15MIN PRN BG <50 OR BG <70 & pt unresponsive Gabapentin 100 mg 05/20/25 14:30 05/28/25 06:07 Gabapentin 100 Mg Capsule GT 06/19/25 14:29 100 mg TID KOURTNEY Administration Glucagon 1 mg 05/27/25 08:07 Glucagon Inj 1 Mg Vial IM Q15MIN PRN BG <70, and no IV access Heparin Sodium (Porcine) 2,700 unit 05/21/25 16:12 05/27/25 11:36 Heparin Sod Inj 1000 Unit/Ml Vial 10 Ml INDWELLCAT 06/04/25 16:11 2,700 unit X1 PRN Administration DIALYSIS Insulin Glargine 50 unit 05/27/25 09:00 05/28/25 09:08 Insulin Glargine (Lantus) 5 Unit/0.05 Ml (Per 5 Units) SC 06/26/25 08:59 50 unit QDAY KOURTNEY Administration Insulin Glargine 30 unit 05/28/25 21:00 Insulin Glargine (Lantus) 5 Unit/0.05 Ml (Per 5 Units) SC 06/27/25 20:59 HS KOURTNEY Insulin Human Lispro 0 unit 05/27/25 08:18 05/28/25 06:07 Insulin Lispro (Admelog) 1 Unit/0.01 Ml Unit SC 06/11/25 17:59 4 unit Q6HR KOURTNEY Administration Protocol Lansoprazole 30 mg 05/05/25 09:00 05/28/25 09:04 Lansoprazole 30 Mg Tab.Rap. GT 06/04/25 08:59 30 mg QDAY KOURTNEY Administration Methylprednisolone Sodium Succinate 40 mg 05/22/25 21:00 05/28/25 09:04 Methylprednisolone Sod Succ 40 Mg Vial IVP 05/29/25 20:59 40 mg BID KOURTNEY Administration Pharmacy Consult 1 each 05/14/25 08:22 Pharmacy Renal Dose Adjustment 1 Ea XX 06/13/25 08:21 PRN PRN CONSULT Sennosides 2 tab 05/02/25 09:00 05/28/25 09:03 Senna Tablet GT 06/01/25 08:59 2 tab QDAY KOURTNEY Administration Protocol Sevelamer Carbonate 0.8 gm 05/20/25 09:45 05/28/25 09:05 Sevelamer Carbonate 0.8 Gm Packet (Non-Formulary) GT 06/19/25 09:44 0.8 gm TIDWM KOURTNEY Administration Sodium Chloride 3 ml 05/26/25 08:02 Sodium Chloride Rt Gloria 0.9% 3 Ml Nebu INH 06/25/25 08:01 PRN PRN SOLN Sodium Hypochlorite 473 ml 05/06/25 21:00 05/28/25 09:03 Sod Hypochlorite 1/4 Str 473 Ml Btl IRRIG 06/05/25 20:59 1 applicatio BID KOURTNEY Administration Plan Patient is a 64-year-old male with morbid obesity with subsequent obesity hypoventilation syndrome requiring tracheostomy and J-tube placement, hypertension, type 2 diabetes, atrial fibrillation, right internal jugular DVT and acute kidney injury secondary to ischemic ATN requiring multiple sessions of hemodialysis and sacral ulcers status post wound VAC currently being treated for acute on chronic hypoxic respiratory failure and ischemic ATN. S/p temporary dialysis catheter placement and hemodialysis session 05/21, continue hemodialysis as needed. Pending FADI. #Acute kidney injury-suspicion of ischemic ATN, resolved #On dialysis #Fluid overload?resolving #Acute on chronic hypoxic respiratory failure, improving. 04/20 ? Attempt was made to place Fuller catheter however unable to pass catheter due to significant resistance and attempt was terminated. Discussed with nursing about possibility of weighing briefs daily. Patient had temporary hemodialysis catheter placed 04/24, receiving dialysis had 1 L removed on 04/24, 2 L on 04/25, 2.14 on 04/26, 2.1 L on 04/29; temporary dialysis catheter discontinued on 05/06 Patient being followed by nephrology, nephrology agrees with diuresis for now, will need close monitoring, poor candidate for dialysis due to body habitus and also has chronic anemia with wound bleeding from sacral region-[facility] did discuss with patient in detail, he verbalizes understanding. Bumex held on 05/15 due to worsening creatinine, continues to worsen. Due to lack of improvement despite diuretic holiday, discussed with patient today need for hemodialysis in the near future. Patient initially refused but after multiple attempts of counseling and explaining risks and benefits, including , patient was eventually agreeable. S/p temporary hemodialysis catheter placement and hemodialysis session 05/21. 4 dialysis sessions since 05/21. 05/28/2025: no dialysis scheduled planned for today. Plan: -On hemodialysis -Monitor Renal Panel every other day -Monitor I&O's -Avoid nephrotoxic agents -Renally dose medication -Nephrology Dr. Li consulted, appreciate recommendations #Acute on Chronic Respiratory Failure secondary to mucous plug #Healthcare-Associated Pneumonia #Leukocytosis Patient noted to have acute on chronic respiratory failure, required bronchoscopy w/ mucous plugs removed. Previous sputum Pseudomnas (04/03/2025) 05/09/2025 Bronchial washing culture grew pseudomonas, sensitive to Zosyn Vancomycin (05/09/2025-05/12/25) and doxycycline (05/12-05/13) were discontinued due to nephrotoxicity. Completed Zosyn course (05/09-05/16/25) Of note, patient has history of Pseudomonnas infection 05/21/25: Patient was having difficulty breathing this morning due to tracheostomy misalignment. Consulted ICU, plan for tracheostomy adjustment today. Plan: -per ICU recommendations, continue Solumedrol 40 mg IVP BID for 5-7 days (05/22- 05/29) -DuoNeb, Mucomyst and chest physiotherapy scheduled - Continue oral and tracheostomy care -Completed Levofloxacin (05/14/25-05/21/25), Completed antibiotics -Blow-by during the day, mechanical ventilation at night as needed at baseline, currently on mechanical ventilation #Paroxysmal atrial fibrillation, rate controlled on Amiodarone #Complete Heart Block, s/p cardioversion (05/09/2025) Patient experienced complete heart block last month, required pacing s/p cardioversion. Given history of atrial fibrillation, continue amiodarone. Not anticoagulated given increased risk of bleeding secondary to decubitus ulcers. 05/13: Discussed with test center administrator?will start on amiodarone previous dose, 200 mg daily. Per cardiology patient is a poor candidate for pacemaker placement, patient was informed at bedside by cardiology team. He verbalized understanding. [id number] score of 3 points indicating 3.2% risk of stroke per year HAS-BLED: 3. High risk of major bleeding Plan: - Continue Amiodarone 200 mg once daily - Patient will need anticoagulation, however has low hemoglobin, bleeding wound will defer anticoagulation - Cardiology consulted, Dr. Barahona, appreciate recommendations #Congestive heart failure, HFpEF 65% #Diastolic dysfunction, grade 3 #Pulmonary hypertension #Right heart failure #BASIA/OHS #Moderate to severe a AOV calcification with no stenosis Patient has a past medical history of right heart failure, Diastolic dysfunction, and HFpEF 65% likely in the setting of cardiomypoathy secondary to morbid obesity form BASIA/OHS. Given Cxr noted with prominent vascular congestion, consider repeat BNP, although hemodynamically unstable given pressors but may consider. Trace peripheral edema noted. Dry BNP 135 Cxr (05/09/2025): Mild Heart Failure, Prominent vascular congestion and Moderate to large right pleural effusion Echo (04/29/2025): Normal LV size and function. Estimated EF of 65%. Grade III Diastolic Dysfunction.Right ventricle is dilated with mild RV dysfunction RVSP 47mmHg. RAP 15mmHg.Severe biatrial dilation.Moderate to Severe AOV calcification with no stenosis <ild tricuspid regurgitation. No pericardial effusion. Lipid Panel: Triglycerides 121, Cholesterol 155, LDL 102, HDL 29 ASCD: 23.7%, high intensity statin recommended Weight (05/28/2025): 198.5 kg Plan -ESRD, no diuresis -Atorvastatin 40 mg HS -Recommended patient to sit up in bed to help relieve IVC pressure -Patient 1500 cc/day fluid restriction, daily weights, tube feeds resumed -K >4 and Mg >2, replete with caution given ESRD -Cardiology consulted, Dr. Cody appreciate recommendations #Hyperglycemic, secondary to steriods #DM2, insulin dependent #Morbid obesity Past medical history of diabetes mellitus type 2 insulin-dependent on home insulin of glargine 38 units daily with sliding scale, and Mounjaro 2.5 mg subcu weekly. 05/28/2025: Glargine 30 increased to Glargine 50 qday & Glargine 20 units PM-->Glargine 30 units HS. Plant to de-escalate after completion of steriod course. Patient has a BMI of 79.5->68.7 A1c (03/05/2025) 7.6% Plan: -Glargine: Glargine 50 units QDay & 30 units HS - ISS scale 3 ?Will reevaluate insulin requirements based on fingerstick glucose - Hypoglycemia protocol ? Anticipate to remove night insulin dose after completing IV steroid course #Decubitus ulcer status post excisional debridement of sacral decubitus ulcer Recent debridement of large decubitus ulcer on 05/02/2025 likely secondary to morbid obestiy and lack of mobility. 04/29: excisional debridement of sacral decubitus ulcer, washout and placement of wound VAC. 05/02: Patient had significant bleeding overnight, wound VAC leaked. Hemoglobin stable this morning, patient's bleeding from wound overnight was controlled with suture ligation. Wound was assessed by general surgeon, patient was transitioned back to red dry dressings daily. Plan: -Wound care following -[place] for pain as needed #Jejunostomy tube #Abdominal abscess - resolved Patient report said that there was an intra-abdominal abscess that have could have been from a perforated ulcer in the past See also note reviewed, mentions that patient likely had a marginal ulcer, but also was not seen on EGD without, currently patient has no abdominal tenderness and is totally asymptomatic. No current drain at this time Patient is status post laparoscopic J-tube placement and is currently on feeds Patient will continue to have this tube and will likely go to a long-term care facility with this until patient can swallow safely Plan: ? Monitor vitals closely #Normocytic normochromic anemia - stable Multifactorial. Patient's baseline hemoglobin throughout the hospitalization has been in the range 9?11, patient did have some bleeding from wound VAC site on 05/02 which was controlled by suture ligation by general surgery. Had recurrent bleeding and eventually heparin drip was held. Hgb continues to hover around 7- 8. 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 Patient on EPO with dialysis #Right internal jugular venous thrombosis #Right arm swelling Continuing free water flushes, patient has gone multiple days of heparin drip since 04/01 Right upper extremity ultrasound May 04-shows right IJ thrombus Plan: ? 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 Esquivel, and attending physician, Dr. Mendoza. Meena Dutta, PGY-1 - The patient's plan was discussed with attending Dr. Kelly Esquivel MD PGY2 Internal Medicine
--- NOTE | 2025-05-28 16:32 | PC.SS ---
SS has communicated with Rosa JEFFERSON who explained Jose from [facility] has still on heard from the person who is initiating the FADI. Rosa has escalated the information.
--- NOTE | 2025-05-28 18:41 | ESPR_ITS ---
<Statement entered by Lenora John MD - 05/30/25 14:43> I personally evaluated the patient with PGY 2 Dr. nicole Parrish PGY 2 resident physician and agree with the treatment plan recommendation patient currently stable he is in dialysis now for CKD stage V also tracheostomy on ventilator spontaneous breathing and stable clinically remains in A-fib rate controlled. Agree with treatment plan recommendation as documented by PGY 2 Documentation for date of: 05/30/25 Subjective Subjective Interval history: Patient is seen and examined at bedside. No acute overnight events. Denies any other complaints. Still in atrial fibrillation with controlled ventricular rate, heart rate around 100 bpm On physical examination, noted to have bilateral diffuse wheezing patient is receiving nebulizations at the bedside Recommend to continue amiodarone 200 Mg through G-tube daily Still pending LTAC placement. Utility Clerk, Dr. Gannon is following the patient and patient is receiving HD as needed Exam Vital Signs Temp Pulse Resp BP Pulse Ox O2 Del Method O2 Flow Rate 97.0 F 87 19 92/73 95 Mechanical Ventilation 65 05/30/25 08:00 05/30/25 08:30 05/30/25 08:00 05/30/25 08:30 05/30/25 08:00 05/30/25 08:00 05/30/25 04:00 FiO2 35 05/30/25 08:00 Narrative Exam General: Awake. obese. Tracheostomy tube insitu on SIMV mode HEENT: Normocephalic, atraumatic, mucous membranes moist. Heart: IRRegular rate and rhythm, no murmurs. Lungs: Bilateral diffuse wheeze heard. Noted decreased breath sounds bilaterally in view of body habitus. noted right IJV catheter on right side Abdomen: Soft, nondistended, nontender, positive bowel sounds. ?No guarding or rebound tenderness. Neurologic: Alert and oriented x3, no gross neurological deficit, and patient able to move all 4 extremities. Extremities: No edema. Skin: Large sacral ulcer in the gluteal region, Decubitus Grade III/IV Objective Labs 05/26/25 05:29 05/29/25 05:00 ABG Interpretation ABG results: 04/18/25 04/18/25 04/18/25 04:40 06:27 10:30 ABG pH 7.28 L 7.33 L 7.36 ABG pCO2 72 H* 67 H 61 H ABG pO2 132 H 60 L D 60 L ABG HCO3 34 H 35 H 34 H ABG O2 Saturation 100 H 93 93 ABG Base Excess 6 H 7 H 8 H 04/19/25 05/10/25 08:53 07:40 ABG pH 7.47 H D 7.52 H ABG pCO2 45 D 40 ABG pO2 66 L 60 L ABG HCO3 33 H 32 H ABG O2 Saturation 96 94 ABG Base Excess 8 H 8 H Quality Measures Quality Measures VTE prophylaxis Advance care planning discussed with:: patient Assessment & Plan Assessment Current Active Medications: Generic Name Dose Route Start Last Admin Trade Name Freq PRN Reason Stop Dose Admin Acetaminophen 650 mg 05/25/25 06:14 05/25/25 06:22 Acetaminophen 325 Mg Tablet PO 06/24/25 06:13 650 mg Q4HR PRN Administration Fever >100.3, pain Protocol Hydrocodone Bitart/Acetaminophen 1 tab 05/26/25 15:50 05/30/25 05:51 Hydrocodone/Apap 5/325 Tablet GT 05/31/25 15:49 1 tab Q6HR PRN Administration PAIN SCALE 4-10(Mod-Sev Acetylcysteine 3 ml 05/10/25 15:00 05/30/25 06:55 Acetylcysteine Rt Gloria 10% 4 Ml Nebu INH 06/09/25 14:59 3 ml Q8HRRT KOURTNEY Administration Albuterol/Ipratropium 3 ml 05/29/25 15:00 05/30/25 06:55 Albuterol/Ipratropium (Duoneb) Rt Gloria 3 Ml Nebu INH 06/28/25 14:59 3 ml Q8HRRT KOURTNEY Administration Amiodarone HCl 200 mg 05/12/25 13:45 05/30/25 08:30 Amiodarone Hcl 200 Mg Tablet GT 06/11/25 13:44 200 mg QDAY KOURTNEY Administration Atorvastatin Calcium 40 mg 05/28/25 21:00 05/29/25 21:44 Atorvastatin Calcium 20 Mg Tablet GT 06/27/25 20:59 40 mg HS KOURTNEY Administration Chlorhexidine Gluconate 15 ml 05/22/25 13:30 05/30/25 08:29 Chlorhexidine Mouthwash 0.12% Udc 15 Ml PO 06/21/25 13:29 15 ml DAILY KOURTNEY Administration Dextrose 25 ml 05/27/25 08:07 Dextrose 50%-Water Inj 50 Ml Syringe IV 06/26/25 08:06 Q15MIN PRN BG 50-70 responsive npo pt Dextrose 50 ml 05/27/25 08:07 Dextrose 50%-Water Inj 50 Ml Syringe IV 06/26/25 08:06 Q15MIN PRN BG <50 OR BG <70 & pt unresponsive Gabapentin 100 mg 05/20/25 14:30 05/30/25 05:51 Gabapentin 100 Mg Capsule GT 06/19/25 14:29 100 mg TID KOURTNEY Administration Glucagon 1 mg 05/27/25 08:07 Glucagon Inj 1 Mg Vial IM Q15MIN PRN BG <70, and no IV access Heparin Sodium (Porcine) 2,700 unit 05/21/25 16:12 05/29/25 20:03 Heparin Sod Inj 1000 Unit/Ml Vial 10 Ml INDWELLCAT 06/04/25 16:11 2,700 unit X1 PRN Administration DIALYSIS Insulin Glargine 50 unit 05/27/25 09:00 05/30/25 08:29 Insulin Glargine (Lantus) 5 Unit/0.05 Ml (Per 5 Units) [place] 06/26/25 08:59 50 unit QDAY KOURTNEY Administration Insulin Glargine 30 unit 05/28/25 21:00 05/29/25 21:44 Insulin Glargine (Lantus) 5 Unit/0.05 Ml (Per 5 Units) [place] 06/27/25 20:59 30 unit HS KOURTNEY Administration Insulin Human Lispro 0 unit 05/27/25 08:18 05/30/25 05:46 Insulin Lispro (Admelog) 1 Unit/0.01 Ml Unit [place] 06/11/25 17:59 Not Given Q6HR [facility] Protocol Lansoprazole 30 mg 05/05/25 09:00 05/30/25 08:29 Lansoprazole 30 Mg Tab. GT 06/04/25 08:59 30 mg QDAY KOURTNEY Administration Pharmacy Consult 1 each 05/14/25 08:22 Pharmacy Renal Dose Adjustment 1 Ea XX 06/13/25 08:21 PRN PRN CONSULT Sennosides 2 tab 05/02/25 09:00 05/30/25 08:29 Senna Tablet GT 06/01/25 08:59 2 tab QDAY KOURTNEY Administration Protocol Sevelamer Carbonate 0.8 gm 05/20/25 09:45 05/30/25 08:29 Sevelamer Carbonate 0.8 Gm Packet (Non-Formulary) GT 06/19/25 09:44 0.8 gm TIDWM KOURTNEY Administration Sodium Chloride 3 ml 05/26/25 08:02 Sodium Chloride Rt Gloria 0.9% 3 Ml Nebu INH 06/25/25 08:01 PRN PRN SOLN Sodium Hypochlorite 473 ml 05/06/25 21:00 05/30/25 08:27 Sod Hypochlorite 1/4 Str 473 Ml Btl IRRIG 06/05/25 20:59 Not Given BID KOURTNEY Plan Mr. Ortega is a 64-year-old male, [employer] with a past medical history of hypertension, diabetes mellitus type 2, history of atrial fibrillation, CHF HFpEF 65%, grade 3 diastolic dysfunction, right heart failure, RSVP 47, moderate to severe ALB calsifications with no stenosis, status post tracheostomy, s/p PEG Tube at [facility], bariatric team, history of dyspahagia, extensive decubitus ulcers, CKD, history of anemia, history of Diego-en- Y gastric bypass, BASIA/OHS, and morbid obesity. Patient was upgraded to ICU for a third time with in acute respiratory respiratory failure secondary to mucous plug and shock, likely cardiogenic shock secondary to complete heart block requiring pressors and downgraded again # A-fib with RVR - s/p cardioversion ---> CVR # Bradycardia and questionable complete heart block, resolved - Patient was hypoxic and was transferred to the ICU on 05/09/2025. - Cardiology was consulted 05/09/2025 for significant bradycardia requiring external temporary transcutaneous pacing. - Plan was to place a temporary transvenous pacemaker if the patient continues to be bradycardic as he was 100% dependent on the transcutaneous pacing. - Bronchoscopy was performed which showed small mucous plug which was removed and patient rhythm was back to his atrial fibrillation with RVR. - Patient was on dopamine at that point of time. Patient blood pressure was on the lower side and was unstable and required cardioversion x 1. - Patient was on levophed and phenylephrine for a short period of time. - Patient is presently ventilator dependent and has a tracheostomy in place along with a jejunostomy. Plan - Recommend to continue telemetry monitoring - In view of ongoing sacral ulcer with recurrent infections, pacemaker placement cannot be done. But fortunately patient did not have any further episodes of bradycardia. So no need of pacemaker placement as of now - Recommended to continue amiodarone 200 Mg G-tube once daily - As patient had large decubitus ulcer and has tendency to bleed, anticoagulation is held for now # H/O CHF, HFpEF 65% #Diastolic dysfunction, grade 3 #Pulmonary hypertension #BASIA/OHS #Moderate to severe a AOV calcification with no stenosis #Moderate Right Pleural Effusion - Patient has a past medical history of right heart failure, Diastolic dysfunction, and HFpEF 65% likely in the setting of cardiomypoathy secondary to morbid obesity form BASIA/OHS. - [facility] 03/19/2025: RAP 8, PAP 27, PCWP 7. - Echo (04/29/2025): Normal LV size and function. Estimated EF of 65%. Grade III Diastolic Dysfunction.Right ventricle is dilated with mild RV dysfunction RVSP 47mmHg. RAP 15mmHg.Severe biatrial dilation.Moderate to Severe AOV calcification with no stenosis <ild tricuspid regurgitation. No pericardial effusion. - Echo (05/14/2025) : Normal LV size and function. Estimated EF is 55 to 60%. Severely RA dilated right ventricle as well as right atrium. IVS flattening noted both in systole and diastole indicating both pressure and volume overload Plan -Recommended to hold diuresis for now due to kidney function and pt does not appear to be fluid overloaded -Pt will be getting dialysis on 05/21/25 -K >4 and Mg >2 #Acute on Chronic Respiratory Failure secondary to mucus plug #Healthcare-Associated Pneumonia #Leukocytosis #Large Sacral Decubitus Ulcer s/p excisional debridement (05/02/2025) #CKD stage III #Jejunostomy #History of abdominal abscess s/p percutaneous drainage #Diabetes Mellitus Type 2 non insulin depedent #Normocytic Anemia Management of rest of the medical conditions as per primary team and other consultants. Thank you for the consult and allowing us to participate in the care of the patient. Cardiology will continue to follow. Patient plan of care was discussed with the automatic fancy machine operator, Dr. Alvaro Ahumada, PGY2
[2025-05-28] MEDS: HYDROcodone/APAP 5/325 TABLET 1 TAB GT (19:15)
[2025-05-28] MEDS: ATORVASTATIN CALCIUM 20 MG TABLET 40 MG GT (21:22)
[2025-05-28] MEDS: INSULIN GLARGINE (Lantus) 5 UNIT/0.05 ML (PER 5 UNITS) 30 UNIT SC (21:22)
[2025-05-29] VITALS (27 sets, daily range): BP systolic 112–147; BP diastolic 70–106; PULSE 64–124; RESP 11–30; TEMP 35.8–36.4; O2SAT 96–100; BMI 69.1
[2025-05-29] MEDS: INSULIN LISPRO (AdmeLOG) 1 UNIT/0.01 ML UNIT SC ×4 (00:04→23:23)
[2025-05-29] MEDS: ALBUTEROL/IPRATROPIUM (Duoneb) RT SOL 3 ML NEBU INH ×3 (00:10→22:34)
[2025-05-29] MEDS: GABAPENTIN 100 MG CAPSULE GT ×2 (05:33→21:44)
[2025-05-29 06:35] LABS: Albumin, Serum 3.2 gm/dL (3.4-4.8); Anion Gap 13 (7-16); BUN/Creatinine Ratio 42 Ratio (12-20); Blood Urea Nitrogen 101 mg/dL (9-23); Calcium 8.8 mg/dL (8.3-10.6); Calcium (Corrected) 9.4 mg/dL (8.5-10.1); Carbon Dioxide 25.1 mMol/L (20.0-31.0); Chloride 99 mMol/L (98-107); Creatinine (Component) 2.4 mg/dL (0.6-1.3); Estimated Creatinine Clearance 51.3 mL/min (>60); Glucose 211 mg/dL (74-106); Osmolality,Calculated 311 (275-295); Phosphorous 4.9 mg/dL (2.4-5.1); Potassium 4.3 mMol/L (3.4-5.1); Sodium 137 mMol/L (136-145); eGFR 29 See Note
[2025-05-29] MEDS: ACETYLCYSTEINE RT SOL 10% 4 ML NEBU 3 ML INH ×2 (07:20→22:34)
--- NOTE | 2025-05-29 08:54 | PC.SS ---
Follow up note: SS has sent updated inquiry to [facility]. Letter of Agreement (FADI) is still pending.
[2025-05-29] MEDS: CHLORHEXIDINE MOUTHWASH 0.12% UDC 15 ML PO (09:47)
--- NOTE | 2025-05-29 10:10 | ESPR_ITS ---
Documentation for date of: 05/29/25 Subjective Subjective Interval history: Mr. Ortega is a 64-year-old male with a past medical history of type 2 diabetes mellitus, history of ATN, A-fib, hypertension, severe right-sided heart failure, HFpEF, severe BASIA, status post tracheostomy and jejunostomy, patient was previously admitted here for hypoxic respiratory failure requiring mechanical ventilation, was later transferred out to [facility] for jejunostomy tube placement, complicated by abdominal abscess, patient is now transferred back to [facility] for further management. The patient was initially noted to have pneumonia and acute hypoxic respiratory failure, requiring mechanical ventilation, nephrology was consulted as patient's renal function continues to worsen. Patient had previously required hemodialysis for ATN, but is a poor dialysis candidate outpatient. 05/24/2025 No acute overnight events. Patient denies any new complaints/concerns. Urine output 887 ml last 24 hours. The plan is for the patient to receive dialysis today; kidney function tests continue to improve with dialysis. Patient denies any chest pain, shortness of breath, abdominal pain. 05/25/2025: No acute overnight events. Patient seen and examined at bedside. Dialysis done yesterday with -2.4L removed. Patient is feeling well today. No new complaints. Denies chest pain or fever. 05/26/2025: No acute overnight events. Patient seen and examined at bedside. Plan for dialysis Tuesday. Patient is feeling well today. No new complaints. Denies fever, chest pain, palpitations, shortness of breath. 05/27/2025: No acute events overnight. Patient seen and examined at bedside. Patient is getting dialysis. Patient says his breathing is on and off. Currently doing fine right now though. No new complaints. Denies fever, chest pain, palpitations, shortness of breath. 05/28/2025: No acute events overnight. Patient seen and examined at bedside. Patient is not getting dialysis today, will plan to have it done Wed 05/29. Patient's labs and vitals were reviewed. Patient says his breathing is currently not bothering him. No new complaints. Denies fever, chest pain, palpitations, shortness of breath. 05/29/2025: No acute events overnight. Patient was seen and exmained at bedside. Planning to get dialysis today. Patient's ability to use his voice continues to improve. Patient says his breathing is doing well this morning. Patient denies having any new complaints/concerns. Patients vitals/labs were reviewed. Patient denies fever, chest pain, shortness of breath. Exam Vital Signs Temp Pulse Resp BP Pulse Ox O2 Del Method O2 Flow Rate 96.9 F 97 16 127/93 H 96 Mechanical Ventilation 65 05/29/25 08:00 05/29/25 08:00 05/29/25 08:00 05/29/25 08:00 05/29/25 08:00 05/29/25 08:00 05/29/25 08:00 FiO2 35 05/29/25 08:00 Narrative Exam GENERAL APPEARANCE: Awake, alert and oriented. No acute distress. NECK: Neck supple, no JVD or bruit, R IJ dialysis catheter CARDIOVASCULAR: Heart rate regular, no murmurs LUNGS/CHEST: Lungs have some bilateral rhonchi sounds ABDOMEN: Soft, nontender, nondistended. No masses. Normal bowel sounds. EXTREMITIES: mild edema in the lower extremities, mild upper extremity edema SKIN/MSK: Skin in warm, dry and intact without rashes or lesions. Appropriate color for ethnicity. Nailbeds pink with no cyanosis or clubbing. PSYCHIATRIC: Appropriate mood and affect. NEUROLOGICAL : No neurological deficits Objective Labs 05/26/25 05:29 05/29/25 05:00 Labs: Laboratory Results - last 24 hr 05/29/25 05:00 Sodium 137 Potassium 4.3 Chloride 99 Carbon Dioxide 25.1 Anion Gap 13 BUN 101 H* Creatinine 2.4 H Estim Creat Clear Calc 51.3 L eGFR 29 L BUN/Creatinine Ratio 42 H Glucose 211 H Calculated Osmolality 311 H Calcium 8.8 Corrected Calcium 9.4 Phosphorus 4.9 Albumin 3.2 L ABG Interpretation ABG results: 04/18/25 04/18/25 04/18/25 04:40 06:27 10:30 ABG pH 7.28 L 7.33 L 7.36 ABG pCO2 72 H* 67 H 61 H ABG pO2 132 H 60 L D 60 L ABG HCO3 34 H 35 H 34 H ABG O2 Saturation 100 H 93 93 ABG Base Excess 6 H 7 H 8 H 04/19/25 05/10/25 08:53 07:40 ABG pH 7.47 H D 7.52 H ABG pCO2 45 D 40 ABG pO2 66 L 60 L ABG HCO3 33 H 32 H ABG O2 Saturation 96 94 ABG Base Excess 8 H 8 H Quality Measures Quality Measures VTE prophylaxis Advance care planning discussed with:: patient Assessment & Plan Assessment Current Active Medications: Generic Name Dose Route Start Last Admin Trade Name Freq PRN Reason Stop Dose Admin Acetaminophen 650 mg 05/25/25 06:14 05/25/25 06:22 Acetaminophen 325 Mg Tablet PO 06/24/25 06:13 650 mg Q4HR PRN Administration Fever >100.3, pain Protocol Hydrocodone Bitart/Acetaminophen 1 tab 05/26/25 15:50 05/28/25 19:15 Hydrocodone/Apap 5/325 Tablet GT 05/31/25 15:49 1 tab Q6HR PRN Administration PAIN SCALE 4-10(Mod-Sev Acetylcysteine 3 ml 05/10/25 15:00 05/29/25 07:20 Acetylcysteine Rt Gloria 10% 4 Ml Nebu INH 06/09/25 14:59 3 ml Q8HRRT KOURTNEY Administration Albuterol/Ipratropium 3 ml 05/29/25 15:00 Albuterol/Ipratropium (Duoneb) Rt Gloria 3 Ml Nebu INH 06/28/25 14:59 Q8HRRT KOURTNEY Amiodarone HCl 200 mg 05/12/25 13:45 05/28/25 09:04 Amiodarone Hcl 200 Mg Tablet GT 06/11/25 13:44 200 mg QDAY KOURTNEY Administration Atorvastatin Calcium 40 mg 05/28/25 21:00 05/28/25 21:22 Atorvastatin Calcium 20 Mg Tablet GT 06/27/25 20:59 40 mg HS KOURTNEY Administration Chlorhexidine Gluconate 15 ml 05/22/25 13:30 05/29/25 09:47 Chlorhexidine Mouthwash 0.12% Udc 15 Ml PO 06/21/25 13:29 15 ml DAILY KOURTNEY Administration Dextrose 25 ml 05/27/25 08:07 Dextrose 50%-Water Inj 50 Ml Syringe IV 06/26/25 08:06 Q15MIN PRN BG 50-70 responsive npo pt Dextrose 50 ml 05/27/25 08:07 Dextrose 50%-Water Inj 50 Ml Syringe IV 06/26/25 08:06 Q15MIN PRN BG <50 OR BG <70 & pt unresponsive Epoetin Rambo 10,000 unit 05/29/25 13:00 Epoetin Rambo-Epbx Inj 10,000 Unit/Ml Vial (Esrd) SC 05/29/25 13:01 X1 ONE Gabapentin 100 mg 05/20/25 14:30 05/29/25 05:33 Gabapentin 100 Mg Capsule GT 06/19/25 14:29 100 mg TID KOURTNEY Administration Glucagon 1 mg 05/27/25 08:07 Glucagon Inj 1 Mg Vial IM Q15MIN PRN BG <70, and no IV access Heparin Sodium (Porcine) 2,700 unit 05/21/25 16:12 05/27/25 11:36 Heparin Sod Inj 1000 Unit/Ml Vial 10 Ml INDWELLCAT 06/04/25 16:11 2,700 unit X1 PRN Administration DIALYSIS Insulin Glargine 50 unit 05/27/25 09:00 05/28/25 09:08 Insulin Glargine (Lantus) 5 Unit/0.05 Ml (Per 5 Units) [place] 06/26/25 08:59 50 unit QDAY KOURTNEY Administration Insulin Glargine 30 unit 05/28/25 21:00 05/28/25 21:22 Insulin Glargine (Lantus) 5 Unit/0.05 Ml (Per 5 Units) [place] 06/27/25 20:59 30 unit HS KOURTNEY Administration Insulin Human Lispro 0 unit 05/27/25 08:18 05/29/25 05:34 Insulin Lispro (Admelog) 1 Unit/0.01 Ml Unit [place] 06/11/25 17:59 4 unit Q6HR KOURTNEY Administration Protocol Lansoprazole 30 mg 05/05/25 09:00 05/28/25 09:04 Lansoprazole 30 Mg Tab.Rap. GT 06/04/25 08:59 30 mg QDAY KOURTNEY Administration Methylprednisolone Sodium Succinate 40 mg 05/22/25 21:00 05/28/25 21:22 Methylprednisolone Sod Succ 40 Mg Vial IVP 05/29/25 20:59 40 mg BID KOURTNEY Administration Pharmacy Consult 1 each 05/14/25 08:22 Pharmacy Renal Dose Adjustment 1 Ea XX 06/13/25 08:21 PRN PRN CONSULT Sennosides 2 tab 05/02/25 09:00 05/28/25 09:03 Senna Tablet GT 06/01/25 08:59 2 tab QDAY KOURTNEY Administration Protocol Sevelamer Carbonate 0.8 gm 05/20/25 09:45 05/28/25 17:54 Sevelamer Carbonate 0.8 Gm Packet (Non-Formulary) GT 06/19/25 09:44 0.8 gm TIDWM KOURTNEY Administration Sodium Chloride 3 ml 05/26/25 08:02 Sodium Chloride Rt Gloria 0.9% 3 Ml Nebu INH 06/25/25 08:01 PRN PRN SOLN Sodium Hypochlorite 473 ml 05/06/25 21:00 05/28/25 21:22 Sod Hypochlorite 1/4 Str 473 Ml Btl IRRIG 06/05/25 20:59 1 applicatio BID KOURTNEY Administration Plan In summary, Mr. Ortega is a 64-year-old male with past medical history of DM2, hypertension, A-fib, and Jehova's witness was admitted to the ICU on 02/27/2025 for shock and acute on chronic hypoxic respiratory failure. He is s/p laparoscopic J-tube placement from [facility]. S/p temporary dialysis catheter placement and hemodialysis session 05/21, continue hemodialysis (next session planned for 05/27) as needed. Pending FADI. #Acute kidney injury likely 2/2 Ischemic ATN #Fluid overload Patient was admitted with acute kidney injury likely ischemic acute tubular necrosis, received temporary hemodialysis catheter placed 04/24, receiving dialysis had 1 L removed on 04/24, 2 L on 04/25, 2.14 on 04/26, 2.1 L on 04/29; temporary dialysis catheter discontinued on 05/06. Temporary hemodialysis catheter placement and hemodialysis session 05/21 after worsening creatinine despite diuretics being held. Plan: -Dialysis is planned for today (05/29) -Continue MWF dialysis schedule -Monitor I&O's -Avoid nephrotoxic agents -Renally dose medication #Acute on Chronic Respiratory Failure secondary to mucous plug #Healthcare-Associated Pneumonia #Leukocytosis #Paroxysmal atrial fibrillation #Right diastolic CHF #Decubitus ulcer #Chronic back pain #Jejunostomy tube #Normocytic normochromic anemia #Acute on Chronic Hypoxic Hypercapnic Respiratory Failure #Obesity hypoventilation syndrome and obstructive sleep apnea #Tracheostomy #Hx of A-fib #Right internal jugular venous thrombosis #Right arm swelling #Morbid obesity #DM2 Above handled by primary hospitalist team Patient seen and care discussed with my attending physician, Dr. Teressa Fox MD PGY-1 Attending Provider Attestation/Addendum Patient seen and examined with resident physician Dr. Fox. Note reviewed, agree with findings and recommendations. BUN/creatinine elevated again-patient going into ATN. Edema ++ Labs 3 times weekly with pediatric tubes due to his [employer] status. Had a long conversation with the patient-agreed for temporary dialysis. Unfortunately IR cannot do permanent catheter -- agreed to do temporary catheter due to his BMI. Dialysis catheter placed by Dr. Galicia in the right IJ. Patient currently seen on dialysis. Tolerating dialysis without any problems. Hemodialysis for 3 hours, 2K, ultrafiltration 1 L, Epogen 6000, no heparin ordered. Plan of care discussed with the dialysis nurse. Please see dialysis flowsheet for further details. He will need LTAC placement with dialysis.
--- NOTE | 2025-05-29 12:02 | ESPR_ITS ---
<Statement entered by Pavel Mendoza MD - 06/03/25 14:20> I reviewed above note and agree with findings and plans. I have also personally examined the patient with medicine team and went over assessment and plan with medical team including advisory intern and resident physician. Documentation for date of: 05/29/25 No overnight events. Patient is s/p exisional debridement of sacral decubitus ulcer. Patient's tube feedings resumed. Renal Panels , . and Tuesday to coincide with possible dialysis schedule in patient. Hemodialyisis on 05/29/2025, UF 1.0 L. Pending SNF. Subjective Subjective Interval history: No acute events overnight. Patient seen and examined at bedside this AM. Denies chest pain or shortness of breath. Labs and vitals were reviewed. CBC not collected today. BUN 101, creatinine 2.4, all other electrolytes within normal limits. Also plan for dialysis, patient is on MWF schedule. Plan for surgical debridement for coccygeal wound today. Otherwise stable. Review of systems otherwise negative except what is mentioned above. Exam Vital Signs Temp Pulse Resp BP Pulse Ox O2 Del Method O2 Flow Rate 96.9 F 97 16 127/93 H 96 Mechanical Ventilation 65 05/29/25 08:00 05/29/25 08:00 05/29/25 08:00 05/29/25 08:00 05/29/25 08:00 05/29/25 08:00 05/29/25 08:00 FiO2 35 05/29/25 08:00 Narrative Exam Physical Exam: Constitutional: Alert, oriented x 3 and no acute distress. Sleeping this morning, arouse with verbal stimuli. Elderly male, morbidly obese. Able to talk. HEENT: Trachea midline. Tracheostomy tube in situ, exit site clean. Mouth moist. Respiratory: Chest normal on inspection and decreased air entry in all lung sims, transmitted sounds and congestion on anterior chest wall, middle and upper lobes. Cardiovascular: S1 and S2 audible, RRR. No murmurs carotid bruit. No gross JVD. Abdominal: Soft, obese and non tender to palpation in all quadrants. Neurological: CN II - XII grossly intact. Extremity motor and sensation grossly intact. Extremities: 1+ pitting lower extremity edema bilaterally. Skin: Warm, dry and intact. Large sacral decubitus ulcer, necrotic tissue noted. No purulent drainage noted. Cleanly packed with dressings. Objective Labs 05/26/25 05:29 05/29/25 05:00 Labs: Laboratory Results - last 24 hr 05/29/25 05:00 Sodium 137 Potassium 4.3 Chloride 99 Carbon Dioxide 25.1 Anion Gap 13 BUN 101 H* Creatinine 2.4 H Estim Creat Clear Calc 51.3 L eGFR 29 L BUN/Creatinine Ratio 42 H Glucose 211 H Calculated Osmolality 311 H Calcium 8.8 Corrected Calcium 9.4 Phosphorus 4.9 Albumin 3.2 L ABG Interpretation ABG results: 04/18/25 04/18/25 04/18/25 04:40 06:27 10:30 ABG pH 7.28 L 7.33 L 7.36 ABG pCO2 72 H* 67 H 61 H ABG pO2 132 H 60 L D 60 L ABG HCO3 34 H 35 H 34 H ABG O2 Saturation 100 H 93 93 ABG Base Excess 6 H 7 H 8 H 04/19/25 05/10/25 08:53 07:40 ABG pH 7.47 H D 7.52 H ABG pCO2 45 D 40 ABG pO2 66 L 60 L ABG HCO3 33 H 32 H ABG O2 Saturation 96 94 ABG Base Excess 8 H 8 H Quality Measures Quality Measures VTE prophylaxis Advance care planning discussed with:: patient Assessment & Plan Assessment Current Active Medications: Generic Name Dose Route Start Last Admin Trade Name Freq PRN Reason Stop Dose Admin Acetaminophen 650 mg 05/25/25 06:14 05/25/25 06:22 Acetaminophen 325 Mg Tablet PO 06/24/25 06:13 650 mg Q4HR PRN Administration Fever >100.3, pain Protocol Hydrocodone Bitart/Acetaminophen 1 tab 05/26/25 15:50 05/28/25 19:15 Hydrocodone/Apap 5/325 Tablet GT 05/31/25 15:49 1 tab Q6HR PRN Administration PAIN SCALE 4-10(Mod-Sev Acetylcysteine 3 ml 05/10/25 15:00 05/29/25 07:20 Acetylcysteine Rt Gloria 10% 4 Ml Nebu INH 06/09/25 14:59 3 ml Q8HRRT KOURTNEY Administration Albuterol/Ipratropium 3 ml 05/29/25 15:00 Albuterol/Ipratropium (Duoneb) Rt Gloria 3 Ml Nebu INH 06/28/25 14:59 Q8HRRT KOURTNEY Amiodarone HCl 200 mg 05/12/25 13:45 05/28/25 09:04 Amiodarone Hcl 200 Mg Tablet GT 06/11/25 13:44 200 mg QDAY KOURTNEY Administration Atorvastatin Calcium 40 mg 05/28/25 21:00 05/28/25 21:22 Atorvastatin Calcium 20 Mg Tablet GT 06/27/25 20:59 40 mg HS KOURTNEY Administration Chlorhexidine Gluconate 15 ml 05/22/25 13:30 05/29/25 09:47 Chlorhexidine Mouthwash 0.12% Udc 15 Ml PO 06/21/25 13:29 15 ml DAILY KOURTNEY Administration Dextrose 25 ml 05/27/25 08:07 Dextrose 50%-Water Inj 50 Ml Syringe IV 06/26/25 08:06 Q15MIN PRN BG 50-70 responsive npo pt Dextrose 50 ml 05/27/25 08:07 Dextrose 50%-Water Inj 50 Ml Syringe IV 06/26/25 08:06 Q15MIN PRN BG <50 OR BG <70 & pt unresponsive Epoetin Rambo 10,000 unit 05/29/25 13:00 Epoetin Rambo-Epbx Inj 10,000 Unit/Ml Vial (Esrd) SC 05/29/25 13:01 X1 ONE Gabapentin 100 mg 05/20/25 14:30 05/29/25 05:33 Gabapentin 100 Mg Capsule GT 06/19/25 14:29 100 mg TID KOURTNEY Administration Glucagon 1 mg 05/27/25 08:07 Glucagon Inj 1 Mg Vial IM Q15MIN PRN BG <70, and no IV access Heparin Sodium (Porcine) 2,700 unit 05/21/25 16:12 05/27/25 11:36 Heparin Sod Inj 1000 Unit/Ml Vial 10 Ml INDWELLCAT 06/04/25 16:11 2,700 unit X1 PRN Administration DIALYSIS Insulin Glargine 50 unit 05/27/25 09:00 05/28/25 09:08 Insulin Glargine (Lantus) 5 Unit/0.05 Ml (Per 5 Units) SC 06/26/25 08:59 50 unit QDAY KOURTNEY Administration Insulin Glargine 30 unit 05/28/25 21:00 05/28/25 21:22 Insulin Glargine (Lantus) 5 Unit/0.05 Ml (Per 5 Units) SC 06/27/25 20:59 30 unit HS KOURTNEY Administration Insulin Human Lispro 0 unit 05/27/25 08:18 05/29/25 05:34 Insulin Lispro (Admelog) 1 Unit/0.01 Ml Unit SC 06/11/25 17:59 4 unit Q6HR KOURTNEY Administration Protocol Lansoprazole 30 mg 05/05/25 09:00 05/28/25 09:04 Lansoprazole 30 Mg Tab.Rap. GT 06/04/25 08:59 30 mg QDAY KOURTNEY Administration Methylprednisolone Sodium Succinate 40 mg 05/22/25 21:00 05/28/25 21:22 Methylprednisolone Sod Succ 40 Mg Vial IVP 05/29/25 20:59 40 mg BID KOURTNEY Administration Pharmacy Consult 1 each 05/14/25 08:22 Pharmacy Renal Dose Adjustment 1 Ea XX 06/13/25 08:21 PRN PRN CONSULT Sennosides 2 tab 05/02/25 09:00 05/28/25 09:03 Senna Tablet GT 06/01/25 08:59 2 tab QDAY KOURTNEY Administration Protocol Sevelamer Carbonate 0.8 gm 05/20/25 09:45 05/28/25 17:54 Sevelamer Carbonate 0.8 Gm Packet (Non-Formulary) GT 06/19/25 09:44 0.8 gm TIDWM KOURTNEY Administration Sodium Chloride 3 ml 05/26/25 08:02 Sodium Chloride Rt Gloria 0.9% 3 Ml Nebu INH 06/25/25 08:01 PRN PRN SOLN Sodium Hypochlorite 473 ml 05/06/25 21:00 05/28/25 21:22 Sod Hypochlorite 1/4 Str 473 Ml Btl IRRIG 06/05/25 20:59 1 applicatio BID KOURTNEY Administration Plan Patient is a 64-year-old male with morbid obesity with subsequent obesity hypoventilation syndrome requiring tracheostomy and J-tube placement, hypertension, type 2 diabetes, atrial fibrillation, right internal jugular DVT and acute kidney injury secondary to ischemic ATN requiring multiple sessions of hemodialysis and sacral ulcers status post wound VAC currently being treated for acute on chronic hypoxic respiratory failure and ischemic ATN. S/p temporary dialysis catheter placement and hemodialysis session 05/21, continue hemodialysis as needed. Pending FADI. #Hemodialysis on temporary IJV Cath #Acute kidney injury-suspicion of ischemic ATN, improving #Fluid overload, improving #Acute on chronic hypoxic respiratory failure, improving. 04/20 ? Attempt was made to place Fuller catheter however unable to pass catheter due to significant resistance and attempt was terminated. Discussed with nursing about possibility of weighing briefs daily. Patient had temporary hemodialysis catheter placed 04/24, receiving dialysis had 1 L removed on 04/24, 2 L on 04/25, 2.14 on 04/26, 2.1 L on 04/29; temporary dialysis catheter discontinued on 05/06 Patient being followed by nephrology, nephrology agrees with diuresis for now, will need close monitoring, poor candidate for dialysis due to body habitus and also has chronic anemia with wound bleeding from sacral region-casino assistant manager did discuss with patient in detail, he verbalizes understanding. Bumex held on 05/15 due to worsening creatinine, continues to worsen. Due to lack of improvement despite diuretic holiday, discussed with patient today need for hemodialysis in the near future. Patient initially refused but after multiple attempts of counseling and explaining risks and benefits, including , patient was eventually agreeable. S/p temporary hemodialysis catheter placement and hemodialysis session 05/21. 4 dialysis sessions since 05/21. 05/28/2025: no dialysis scheduled planned for today. 05/29/2025: Scheduled for dialysis today. 1 L UF. Plan: -On hemodialysis s/p temporary cath (05/21/2025) -Monitor Renal Panel every other day (MWF based on dialysis schedule) -Monitor I&O's -Avoid nephrotoxic agents -Renally dose medication -Nephrology Dr. Li consulted, appreciate recommendations #Acute on Chronic Respiratory Failure secondary to mucous plug #Healthcare-Associated Pneumonia #Leukocytosis Patient noted to have acute on chronic respiratory failure, required bronchoscopy w/ mucous plugs removed. Previous sputum Pseudomnas (04/03/2025) 05/09/2025 Bronchial washing culture grew pseudomonas, sensitive to Zosyn Vancomycin (05/09/2025-05/12/25) and doxycycline (05/12-05/13) were discontinued due to nephrotoxicity. Completed Zosyn course (05/09-05/16/25) Of note, patient has history of Pseudomonnas infection 05/21/25: Patient was having difficulty breathing this morning due to tracheostomy misalignment. Consulted ICU, plan for tracheostomy adjustment today. Plan: -per ICU recommendations, continue Solumedrol 40 mg IVP BID for 5-7 days (05/22- 05/29) -DuoNeb, Mucomyst and chest physiotherapy scheduled - Continue oral and tracheostomy care -Completed Levofloxacin (05/14/25-05/21/25), Completed antibiotics -Blow-by during the day, mechanical ventilation at night as needed at baseline, currently on mechanical ventilation #Paroxysmal atrial fibrillation, rate controlled on Amiodarone #Complete Heart Block, s/p cardioversion (05/09/2025) Patient experienced complete heart block last month, required pacing s/p cardioversion. Given history of atrial fibrillation, continue amiodarone. Not anticoagulated given increased risk of bleeding secondary to decubitus ulcers. 05/13: Discussed with food general manager?will start on amiodarone previous dose, 200 mg daily. Per cardiology patient is a poor candidate for pacemaker placement, patient was informed at bedside by cardiology team. He verbalized understanding. [id number] score of 3 points indicating 3.2% risk of stroke per year HAS-BLED: 3. High risk of major bleeding Plan: - Continue Amiodarone 200 mg once daily - Patient will need anticoagulation, however has low hemoglobin, bleeding wound will defer anticoagulation - Cardiology consulted, Dr. Barahona, appreciate recommendations #Congestive heart failure, HFpEF 65% #Diastolic dysfunction, grade 3 #Pulmonary hypertension #Right heart failure #BASIA/OHS #Moderate to severe a AOV calcification with no stenosis Patient has a past medical history of right heart failure, Diastolic dysfunction, and HFpEF 65% likely in the setting of cardiomypoathy secondary to morbid obesity form BASIA/OHS. Given Cxr noted with prominent vascular congestion, consider repeat BNP, although hemodynamically unstable given pressors but may consider. Trace peripheral edema noted. Dry BNP 135 Cxr (05/09/2025): Mild Heart Failure, Prominent vascular congestion and Moderate to large right pleural effusion Echo (04/29/2025): Normal LV size and function. Estimated EF of 65%. Grade III Diastolic Dysfunction.Right ventricle is dilated with mild RV dysfunction RVSP 47mmHg. RAP 15mmHg.Severe biatrial dilation.Moderate to Severe AOV calcification with no stenosis <ild tricuspid regurgitation. No pericardial effusion. Lipid Panel: Triglycerides 121, Cholesterol 155, LDL 102, HDL 29 ASCD: 23.7%, high intensity statin recommended Weight (05/28/2025): 198.5 kg Plan -ESRD, no diuresis -Atorvastatin 40 mg HS -Recommended patient to sit up in bed to help relieve IVC pressure -Patient 1500 cc/day fluid restriction, daily weights, tube feeds resumed -K >4 and Mg >2, replete with caution given ESRD -Cardiology consulted, Dr. Cody appreciate recommendations #Decubitus ulcer status post excisional debridement of sacral decubitus ulcer Recent debridement of large decubitus ulcer on 05/02/2025 likely secondary to morbid obestiy and lack of mobility. 04/29: excisional debridement of sacral decubitus ulcer, washout and placement of wound VAC. 05/02: Patient had significant bleeding overnight, wound VAC leaked. Hemoglobin stable this morning, patient's bleeding from wound overnight was controlled with suture ligation. Wound was assessed by general surgeon, patient was transitioned back to red dry dressings daily. 05/29: Anticipate sacral wound debridement by general surgeon Dr. Ca Plan: -Sacral wound debridement today by general surgeon Dr. Ca -NPO for procedure, will resume tube feedings after -Wound care following -Hernandez for pain as needed #Hyperglycemic, secondary to steriods #DM2, insulin dependent #Morbid obesity Past medical history of diabetes mellitus type 2 insulin-dependent on home insulin of glargine 38 units daily with sliding scale, and Mounjaro 2.5 mg subcu weekly. 05/28/2025: Glargine 30 increased to Glargine 50 qday & Glargine 20 units PM-->Glargine 30 units HS. Plant to de-escalate after completion of steriod course. Patient has a BMI of 79.5->68.7 A1c (03/05/2025) 7.6% Plan: -Glargine: Glargine 50 units QDay & 30 units HS - ISS scale 3 ?Will reevaluate insulin requirements based on fingerstick glucose - Hypoglycemia protocol ? Anticipate to remove night insulin dose after tonight #Jejunostomy tube #Abdominal abscess - resolved Patient report said that there was an intra-abdominal abscess that have could have been from a perforated ulcer in the past See also note reviewed, mentions that patient likely had a marginal ulcer, but also was not seen on EGD without, currently patient has no abdominal tenderness and is totally asymptomatic. No current drain at this time Patient is status post laparoscopic J-tube placement and is currently on feeds Patient will continue to have this tube and will likely go to a long-term care facility with this until patient can swallow safely Plan: ? Monitor vitals closely #Normocytic normochromic anemia - stable Multifactorial. Patient's baseline hemoglobin throughout the hospitalization has been in the range 9?11, patient did have some bleeding from wound VAC site on 05/02 which was controlled by suture ligation by general surgery. Had recurrent bleeding and eventually heparin drip was held. Hgb continues to hover around 7- 8. 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 Patient on EPO with dialysis #Right internal jugular venous thrombosis #Right arm swelling Continuing free water flushes, patient has gone multiple days of heparin drip since 04/01 Right upper extremity ultrasound May 04-shows right IJ thrombus Plan: ? 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 Esquivel, and attending physician, Dr. Mendoza. Meena Dutta, PGY-1 - The patient's plan was discussed with attending Dr. Kelly Esquivel MD PGY2 Internal Medicine
--- NOTE | 2025-05-29 12:09 | PD.SURPROG ---
Documentation for date of: 05/29/25 Subjective Subjective Brief History: 64M with HTN, DMII, atrial fibrillation, history of gastric bypass, and super morbid obesity (BMI 68) who was initially admitted on 02/27/25 for shock and respiratory failure s/p tracheostomy, transferred to [facility] for jejunostomy placement and now back at [facility] on heparin gtt for IJ thrombus, noted to have an unstageable decubitus ulcer for which general surgery was consulted. Pt denies any pain to the area, is comfortable with tracheostomy set to supplemental oxygen, and heparin gtt and tube feeds have both been held since midnight Narrative: Pt noted to have recurrence of necrotic tissue in the sacral ulcer by integration director, he is agreeable to repeat bedside debridment today and tube feeds have been held Exam Vital Signs Temp Pulse Resp BP Pulse Ox O2 Del Method O2 Flow Rate 96.9 F 97 16 127/93 H 96 Mechanical Ventilation 65 05/29/25 08:00 05/29/25 08:00 05/29/25 08:00 05/29/25 08:00 05/29/25 08:00 05/29/25 08:00 05/29/25 08:00 FiO2 35 05/29/25 08:00 Constitutional Constitutional: no acute distress Routine Respiratory Exam Respiratory: Present no resp distress and patient mechanically ventilated Routine Skin Exam Comments: sacral decubitus ulcer with necrotic tissue at the right superior and left inferior aspects Results Results: Laboratory Laboratory results: results reviewed Assessment & Plan Plan 64M with HTN, DMII, atrial fibrillation, history of gastric bypass, and super morbid obesity (BMI 68) who was initially admitted on 02/27/25 for shock and respiratory failure s/p tracheostomy, now s/p jejunstomy placement noted to have an unstageable sacral decubitus ulcer now s/p excisional debridement in April now requiring another debridement PROCEDURES: Procedures Excisional debridement of sacral decubitus ulcer, washout, placement of wound VAC
--- NOTE | 2025-05-29 12:13 | PD.SURPROC ---
PROCEDURES: Procedure Comment Procedure Comment: Informed consent obtained for excisional debridement of sacral decubitus ulcer Tube feeds held from MN and coags evaluated Necrotic subcutaneous tissue excised sharply to level of muscle Pt tolerated procedure well Wound packed with kerlix and covered with abdominal pad secured with medipore tape Abscess I/D Site: back Sedation/analgesia: none Technique: other (Excisional debridement of necrotic subcutaneous tissue with a #10 blade and with scissors, minimal bleeding controlled with suture ligation and surgicell snow) Irrigation: Yes Packing used?: plain
[2025-05-29] MEDS: HYDROcodone/APAP 5/325 TABLET 1 TAB GT ×2 (12:14→18:33)
[2025-05-29] MEDS: LANSOPRAZOLE 30 MG TAB.RAP.DR GT (17:50)
[2025-05-29] MEDS: SEVELAMER CARBONATE 0.8 GM PACKET (NON-FORMULARY) GT (17:56)
[2025-05-29] MEDS: AMIODARONE HCL 200 MG TABLET GT (17:56)
[2025-05-29] MEDS: ferumoxytoL (ESRD) 510 MG in SODIUM CHLORIDE 0.9% 100 ML 117 MG IV (18:21)
--- NOTE | 2025-05-29 18:44 | ESPR_ITS ---
<Statement entered by Lenora John MD - 05/30/25 14:44> I personally evaluated the patient with PGY 2 Dr. nicole Parrish PGY 2 resident physician and agree with the treatment plan recommendation patient currently stable he is in dialysis now for CKD stage V also tracheostomy on ventilator spontaneous breathing and stable clinically remains in A-fib rate controlled. Agree with treatment plan recommendation as documented by PGY 2 Documentation for date of: 05/30/25 Subjective Subjective Interval history: Patient is seen and examined at bedside. No acute overnight events. Receiving HD at the time of examination and tolerating well. 1 L of fluid is removed Still able to produce urine. Still in atrial fibrillation with controlled ventricular rate with heart rate around 100 bpm Recommend to continue amiodarone. Exam Vital Signs Temp Pulse Resp BP Pulse Ox O2 Del Method O2 Flow Rate 97.0 F 87 19 92/73 95 Mechanical Ventilation 65 05/30/25 08:00 05/30/25 08:30 05/30/25 08:00 05/30/25 08:30 05/30/25 08:00 05/30/25 08:00 05/30/25 04:00 FiO2 35 05/30/25 08:00 Narrative Exam General: Awake. obese. Tracheostomy tube insitu on SIMV mode HEENT: Normocephalic, atraumatic, mucous membranes moist. Heart: IRRegular rate and rhythm, no murmurs. Lungs: Clear to auscultation with no wheezing or crackles. But noted decreased breath sounds bilaterally in view of body habitus. noted right IJV catheter on right side Abdomen: Soft, nondistended, nontender, positive bowel sounds. ?No guarding or rebound tenderness. Neurologic: Alert and oriented x3, no gross neurological deficit, and patient able to move all 4 extremities. Extremities: No edema. Skin: Large sacral ulcer in the gluteal region, Decubitus Grade III/IV Objective Labs 05/26/25 05:29 05/29/25 05:00 ABG Interpretation ABG results: 04/18/25 04/18/25 04/18/25 04:40 06:27 10:30 ABG pH 7.28 L 7.33 L 7.36 ABG pCO2 72 H* 67 H 61 H ABG pO2 132 H 60 L D 60 L ABG HCO3 34 H 35 H 34 H ABG O2 Saturation 100 H 93 93 ABG Base Excess 6 H 7 H 8 H 04/19/25 05/10/25 08:53 07:40 ABG pH 7.47 H D 7.52 H ABG pCO2 45 D 40 ABG pO2 66 L 60 L ABG HCO3 33 H 32 H ABG O2 Saturation 96 94 ABG Base Excess 8 H 8 H Quality Measures Quality Measures VTE prophylaxis Advance care planning discussed with:: patient Assessment & Plan Assessment Current Active Medications: Generic Name Dose Route Start Last Admin Trade Name Freq PRN Reason Stop Dose Admin Acetaminophen 650 mg 05/25/25 06:14 05/25/25 06:22 Acetaminophen 325 Mg Tablet PO 06/24/25 06:13 650 mg Q4HR PRN Administration Fever >100.3, pain Protocol Hydrocodone Bitart/Acetaminophen 1 tab 05/26/25 15:50 05/30/25 05:51 Hydrocodone/Apap 5/325 Tablet GT 05/31/25 15:49 1 tab Q6HR PRN Administration PAIN SCALE 4-10(Mod-Sev Acetylcysteine 3 ml 05/10/25 15:00 05/30/25 06:55 Acetylcysteine Rt Gloria 10% 4 Ml Nebu INH 06/09/25 14:59 3 ml Q8HRRT KOURTNEY Administration Albuterol/Ipratropium 3 ml 05/29/25 15:00 05/30/25 06:55 Albuterol/Ipratropium (Duoneb) Rt [place] 3 Ml Nebu INH 06/28/25 14:59 3 ml Q8HRRT KOURTNEY Administration Amiodarone HCl 200 mg 05/12/25 13:45 05/30/25 08:30 Amiodarone Hcl 200 Mg Tablet GT 06/11/25 13:44 200 mg QDAY KOURTNEY Administration Atorvastatin Calcium 40 mg 05/28/25 21:00 05/29/25 21:44 Atorvastatin Calcium 20 Mg Tablet GT 06/27/25 20:59 40 mg HS KOURTNEY Administration Chlorhexidine Gluconate 15 ml 05/22/25 13:30 05/30/25 08:29 Chlorhexidine Mouthwash 0.12% Udc 15 Ml PO 06/21/25 13:29 15 ml DAILY KOURTNEY Administration Dextrose 25 ml 05/27/25 08:07 Dextrose 50%-Water Inj 50 Ml Syringe IV 06/26/25 08:06 Q15MIN PRN BG 50-70 responsive npo pt Dextrose 50 ml 05/27/25 08:07 Dextrose 50%-Water Inj 50 Ml Syringe IV 06/26/25 08:06 Q15MIN PRN BG <50 OR BG <70 & pt unresponsive Gabapentin 100 mg 05/20/25 14:30 05/30/25 05:51 Gabapentin 100 Mg Capsule GT 06/19/25 14:29 100 mg TID KOURTNEY Administration Glucagon 1 mg 05/27/25 08:07 Glucagon Inj 1 Mg Vial IM Q15MIN PRN BG <70, and no IV access Heparin Sodium (Porcine) 2,700 unit 05/21/25 16:12 05/29/25 20:03 Heparin Sod Inj 1000 Unit/Ml Vial 10 Ml INDWELLCAT 06/04/25 16:11 2,700 unit X1 PRN Administration DIALYSIS Insulin Glargine 50 unit 05/27/25 09:00 05/30/25 08:29 Insulin Glargine (Lantus) 5 Unit/0.05 Ml (Per 5 Units) NV 06/26/25 08:59 50 unit QDAY KOURTNEY Administration Insulin Glargine 30 unit 05/28/25 21:00 05/29/25 21:44 Insulin Glargine (Lantus) 5 Unit/0.05 Ml (Per 5 Units) NV 06/27/25 20:59 30 unit HS KOURTNEY Administration Insulin Human Lispro 0 unit 05/27/25 08:18 05/30/25 05:46 Insulin Lispro (Admelog) 1 Unit/0.01 Ml Unit SC 06/11/25 17:59 Not Given Q6HR [facility] Protocol Lansoprazole 30 mg 05/05/25 09:00 05/30/25 08:29 Lansoprazole 30 Mg Tab.Joshua. GT 06/04/25 08:59 30 mg QDAY KOURTNEY Administration Pharmacy Consult 1 each 05/14/25 08:22 Pharmacy Renal Dose Adjustment 1 Ea XX 06/13/25 08:21 PRN PRN CONSULT Sennosides 2 tab 05/02/25 09:00 05/30/25 08:29 Senna Tablet GT 06/01/25 08:59 2 tab QDAY KOURTNEY Administration Protocol Sevelamer Carbonate 0.8 gm 05/20/25 09:45 05/30/25 08:29 Sevelamer Carbonate 0.8 Gm Packet (Non-Formulary) GT 06/19/25 09:44 0.8 gm TIDWM KOURTNEY Administration Sodium Chloride 3 ml 05/26/25 08:02 Sodium Chloride Rt Gloria 0.9% 3 Ml Nebu INH 06/25/25 08:01 PRN PRN SOLN Sodium Hypochlorite 473 ml 05/06/25 21:00 05/30/25 08:27 Sod Hypochlorite 1/4 Str 473 Ml Btl IRRIG 06/05/25 20:59 Not Given BID KOURTNEY Plan Mr. 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 Patient was upgraded to ICU for a third time with in acute respiratory respiratory failure secondary to mucous plug and shock, likely cardiogenic shock secondary to complete heart block requiring pressors and downgraded again # A-fib with RVR - s/p cardioversion ---> CVR # Bradycardia and questionable complete heart block, resolved - Patient was hypoxic and was transferred to the ICU on 05/09/2025. - Cardiology was consulted 05/09/2025 for significant bradycardia requiring external temporary transcutaneous pacing. - Plan was to place a temporary transvenous pacemaker if the patient continues to be bradycardic as he was 100% dependent on the transcutaneous pacing. - Bronchoscopy was performed which showed small mucous plug which was removed and patient rhythm was back to his atrial fibrillation with RVR. - Patient was on dopamine at that point of time. Patient blood pressure was on the lower side and was unstable and required cardioversion x 1. - Patient was on levophed and phenylephrine for a short period of time. - Patient is presently ventilator dependent and has a tracheostomy in place along with a jejunostomy. Plan - Recommend to continue telemetry monitoring - In view of ongoing sacral ulcer with recurrent infections, pacemaker placement cannot be done. But fortunately patient did not have any further episodes of bradycardia. So no need of pacemaker placement as of now - Recommended to continue amiodarone 200 Mg G-tube once daily - As patient had large decubitus ulcer and has tendency to bleed, anticoagulation is held for now # H/O CHF, HFpEF 65% #Diastolic dysfunction, grade 3 #Pulmonary hypertension #BASIA/OHS #Moderate to severe a AOV calcification with no stenosis #Moderate Right Pleural Effusion - Patient has a past medical history of right heart failure, Diastolic dysfunction, and HFpEF 65% likely in the setting of cardiomypoathy secondary to morbid obesity form BASIA/OHS. - [place] [facility] 03/19/2025: RAP 8, PAP 27, PCWP 7. - Echo (04/29/2025): Normal LV size and function. Estimated EF of 65%. Grade III Diastolic Dysfunction.Right ventricle is dilated with mild RV dysfunction RVSP 47mmHg. RAP 15mmHg.Severe biatrial dilation.Moderate to Severe AOV calcification with no stenosis <ild tricuspid regurgitation. No pericardial effusion. - Echo (05/14/2025) : Normal LV size and function. Estimated EF is 55 to 60%. Severely RA dilated right ventricle as well as right atrium. IVS flattening noted both in systole and diastole indicating both pressure and volume overload Plan -Recommended to hold diuresis for now due to kidney function and pt does not appear to be fluid overloaded -Pt will be getting dialysis on 05/21/25 -K >4 and Mg >2 #Acute on Chronic Respiratory Failure secondary to mucus plug #Healthcare-Associated Pneumonia #Leukocytosis #Large Sacral Decubitus Ulcer s/p excisional debridement (05/02/2025) #CKD stage III #Jejunostomy #History of abdominal abscess s/p percutaneous drainage #Diabetes Mellitus Type 2 non insulin depedent #Normocytic Anemia Management of rest of the medical conditions as per primary team and other consultants. Thank you for the consult and allowing us to participate in the care of the patient. Cardiology will continue to follow. Patient plan of care was discussed with the orthodontic assistant, Dr. Alvaro Ahumada, PGY2
[2025-05-29] MEDS: EPOETIN ALFA-EPBX INJ 10,000 UNIT/ML VIAL (ESRD) 10000 UNIT SC (19:06)
[2025-05-29] MEDS: HEPARIN SOD INJ 1000 UNIT/ML VIAL 10 ML 2700 UNIT INDWELLCAT (20:03)
[2025-05-29] MEDS: ATORVASTATIN CALCIUM 20 MG TABLET 40 MG GT (21:44)
[2025-05-29] MEDS: INSULIN GLARGINE (Lantus) 5 UNIT/0.05 ML (PER 5 UNITS) 30 UNIT SC (21:44)
[2025-05-30] VITALS (17 sets, daily range): BP systolic 90–114; BP diastolic 72–83; PULSE 85–103; RESP 10–26; TEMP 36.1–36.6; O2SAT 95–99; BMI 68.3
[2025-05-30] MEDS: HYDROcodone/APAP 5/325 TABLET 1 TAB GT ×3 (05:51→18:46)
[2025-05-30] MEDS: GABAPENTIN 100 MG CAPSULE GT ×3 (05:51→21:19)
[2025-05-30] MEDS: ACETYLCYSTEINE RT SOL 10% 4 ML NEBU 3 ML INH ×3 (06:55→22:41)
[2025-05-30] MEDS: ALBUTEROL/IPRATROPIUM (Duoneb) RT SOL 3 ML NEBU INH ×3 (06:55→22:41)
[2025-05-30] MEDS: INSULIN GLARGINE (Lantus) 5 UNIT/0.05 ML (PER 5 UNITS) 50 UNIT SC (08:29)
[2025-05-30] MEDS: SEVELAMER CARBONATE 0.8 GM PACKET (NON-FORMULARY) GT ×3 (08:29→18:05)
[2025-05-30] MEDS: LANSOPRAZOLE 30 MG TAB.RAP.DR GT (08:29)
[2025-05-30] MEDS: CHLORHEXIDINE MOUTHWASH 0.12% UDC 15 ML PO (08:29)
[2025-05-30] MEDS: AMIODARONE HCL 200 MG TABLET GT (08:30)
--- NOTE | 2025-05-30 09:44 | ESPR_ITS ---
<Statement entered by Pavel Mendoza MD - 06/10/25 17:55> I reviewed above note and agree with findings and plans. I have also personally examined the patient with medicine team and went over assessment and plan with medical team including nurse intern and resident physician. Documentation for date of: 05/30/25 No overnight events. Patient is pending LTAC. s/p debridement day 1. Lidocaine patch added. Caution with morphine or norco given kidney function. Subjective Subjective Interval history: No acute events overnight. Patient seen and examined at bedside this AM. Reports sacral pain status post debridement on 05/29, started on [place] 5 every 6 hours as needed and lidocaine patch. Vitals were reviewed. Labs held today. Fingerstick glucose 122 this morning. Last night completed solumedrol course s/p repeat bronchoscopy, will discontinue insulin 30 units nightly. Monitor glucose tomorrow morning. Plan for dialysis tomorrow per [facility] schedule. Pending LTAC placement. Review of systems otherwise negative except what is mentioned above. Exam Vital Signs Temp Pulse Resp BP Pulse Ox O2 Del Method O2 Flow Rate 97.0 F 87 19 92/73 95 Mechanical Ventilation 65 05/30/25 08:00 05/30/25 08:30 05/30/25 08:00 05/30/25 08:30 05/30/25 08:00 05/30/25 08:00 05/30/25 04:00 FiO2 35 05/30/25 08:00 Narrative Exam Physical Exam: Constitutional: Alert, oriented x 3 and no acute distress. Sleeping this morning, arouse with verbal stimuli. Elderly male, morbidly obese. Able to talk. HEENT: Trachea midline. Tracheostomy tube in situ, exit site clean. Mouth moist. Respiratory: Chest normal on inspection and decreased air entry in all lung sims, transmitted sounds and congestion on anterior chest wall, middle and upper lobes. Cardiovascular: S1 and S2 audible, RRR. No murmurs carotid bruit. No gross JVD. Abdominal: Soft, obese and non tender to palpation in all quadrants. Neurological: CN II - XII grossly intact. Extremity motor and sensation grossly intact. Extremities: 1+ pitting lower extremity edema bilaterally. Skin: Warm, dry and intact. Large sacral decubitus ulcer, necrotic tissue noted. No purulent drainage noted. Cleanly packed with dressings. Objective Labs 05/26/25 05:29 05/29/25 05:00 ABG Interpretation ABG results: 04/18/25 04/18/25 04/18/25 04:40 06:27 10:30 ABG pH 7.28 L 7.33 L 7.36 ABG pCO2 72 H* 67 H 61 H ABG pO2 132 H 60 L D 60 L ABG HCO3 34 H 35 H 34 H ABG O2 Saturation 100 H 93 93 ABG Base Excess 6 H 7 H 8 H 04/19/25 05/10/25 08:53 07:40 ABG pH 7.47 H D 7.52 H ABG pCO2 45 D 40 ABG pO2 66 L 60 L ABG HCO3 33 H 32 H ABG O2 Saturation 96 94 ABG Base Excess 8 H 8 H Quality Measures Quality Measures VTE prophylaxis Advance care planning discussed with:: patient Assessment & Plan Assessment Current Active Medications: Generic Name Dose Route Start Last Admin Trade Name Freq PRN Reason Stop Dose Admin Acetaminophen 650 mg 05/25/25 06:14 05/25/25 06:22 Acetaminophen 325 Mg Tablet PO 06/24/25 06:13 650 mg Q4HR PRN Administration Fever >100.3, pain Protocol Hydrocodone Bitart/Acetaminophen 1 tab 05/26/25 15:50 05/30/25 05:51 Hydrocodone/Apap 5/325 Tablet GT 05/31/25 15:49 1 tab Q6HR PRN Administration PAIN SCALE 4-10(Mod-Sev Acetylcysteine 3 ml 05/10/25 15:00 05/30/25 06:55 Acetylcysteine Rt Gloria 10% 4 Ml Nebu INH 06/09/25 14:59 3 ml Q8HRRT KOURTNEY Administration Albuterol/Ipratropium 3 ml 05/29/25 15:00 05/30/25 06:55 Albuterol/Ipratropium (Duoneb) Rt Gloria 3 Ml Nebu INH 06/28/25 14:59 3 ml Q8HRRT KOURTNEY Administration Amiodarone HCl 200 mg 05/12/25 13:45 05/30/25 08:30 Amiodarone Hcl 200 Mg Tablet GT 06/11/25 13:44 200 mg QDAY KOURTNEY Administration Atorvastatin Calcium 40 mg 05/28/25 21:00 05/29/25 21:44 Atorvastatin Calcium 20 Mg Tablet GT 06/27/25 20:59 40 mg HS KOURTNEY Administration Chlorhexidine Gluconate 15 ml 05/22/25 13:30 05/30/25 08:29 Chlorhexidine Mouthwash 0.12% Udc 15 Ml PO 06/21/25 13:29 15 ml DAILY KOURTNEY Administration Dextrose 25 ml 05/27/25 08:07 Dextrose 50%-Water Inj 50 Ml Syringe IV 06/26/25 08:06 Q15MIN PRN BG 50-70 responsive npo pt Dextrose 50 ml 05/27/25 08:07 Dextrose 50%-Water Inj 50 Ml Syringe IV 06/26/25 08:06 Q15MIN PRN BG <50 OR BG <70 & pt unresponsive Gabapentin 100 mg 05/20/25 14:30 05/30/25 05:51 Gabapentin 100 Mg Capsule GT 06/19/25 14:29 100 mg TID KOURTNEY Administration Glucagon 1 mg 05/27/25 08:07 Glucagon Inj 1 Mg Vial IM Q15MIN PRN BG <70, and no IV access Heparin Sodium (Porcine) 2,700 unit 05/21/25 16:12 05/29/25 20:03 Heparin Sod Inj 1000 Unit/Ml Vial 10 Ml INDWELLCAT 06/04/25 16:11 2,700 unit X1 PRN Administration DIALYSIS Insulin Glargine 50 unit 05/27/25 09:00 05/30/25 08:29 Insulin Glargine (Lantus) 5 Unit/0.05 Ml (Per 5 Units) [place] 06/26/25 08:59 50 unit QDAY KOURTNEY Administration Insulin Glargine 30 unit 05/28/25 21:00 05/29/25 21:44 Insulin Glargine (Lantus) 5 Unit/0.05 Ml (Per 5 Units) SC 06/27/25 20:59 30 unit HS KOURTNEY Administration Insulin Human Lispro 0 unit 05/27/25 08:18 05/30/25 05:46 Insulin Lispro (Admelog) 1 Unit/0.01 Ml Unit LA 06/11/25 17:59 Not Given Q6HR [facility] Protocol Lansoprazole 30 mg 05/05/25 09:00 05/30/25 08:29 Lansoprazole 30 Mg Tab.Rap.Dr DUARTE 06/04/25 08:59 30 mg QDAY KOURTNEY Administration Pharmacy Consult 1 each 05/14/25 08:22 Pharmacy Renal Dose Adjustment 1 Ea XX 06/13/25 08:21 PRN PRN CONSULT Sennosides 2 tab 05/02/25 09:00 05/30/25 08:29 Senna Tablet GT 06/01/25 08:59 2 tab QDAY KOURTNEY Administration Protocol Sevelamer Carbonate 0.8 gm 05/20/25 09:45 05/30/25 08:29 Sevelamer Carbonate 0.8 Gm Packet (Non-Formulary) GT 06/19/25 09:44 0.8 gm TIDWM KOURTNEY Administration Sodium Chloride 3 ml 05/26/25 08:02 Sodium Chloride Rt Gloria 0.9% 3 Ml Nebu INH 06/25/25 08:01 PRN PRN SOLN Sodium Hypochlorite 473 ml 05/06/25 21:00 05/30/25 08:27 Sod Hypochlorite 1/4 Str 473 Ml Btl IRRIG 06/05/25 20:59 Not Given BID KOURTNEY Plan Patient is a 64-year-old male with morbid obesity with subsequent obesity hypoventilation syndrome requiring tracheostomy and J-tube placement, hypertension, type 2 diabetes, atrial fibrillation, right internal jugular DVT and acute kidney injury secondary to ischemic ATN requiring multiple sessions of hemodialysis and sacral ulcers status post wound VAC currently being treated for acute on chronic hypoxic respiratory failure and ischemic ATN. S/p temporary dialysis catheter placement and hemodialysis session 05/21, continue hemodialysis as needed. Pending FADI. #Hemodialysis on temporary IJV Cath #Acute kidney injury-suspicion of ischemic ATN, improving #Fluid overload, improving #Acute on chronic hypoxic respiratory failure, improving. 04/20 ? Attempt was made to place Fuller catheter however unable to pass catheter due to significant resistance and attempt was terminated. Discussed with nursing about possibility of weighing briefs daily. Patient had temporary hemodialysis catheter placed 04/24, receiving dialysis had 1 L removed on 04/24, 2 L on 04/25, 2.14 on 04/26, 2.1 L on 04/29; temporary dialysis catheter discontinued on 05/06 Patient being followed by nephrology, nephrology agrees with diuresis for now, will need close monitoring, poor candidate for dialysis due to body habitus and also has chronic anemia with wound bleeding from sacral region-tower cleaner did discuss with patient in detail, he verbalizes understanding. Mer held on 05/15 due to worsening creatinine, continues to worsen. Due to lack of improvement despite diuretic holiday, discussed with patient today need for hemodialysis in the near future. Patient initially refused but after multiple attempts of counseling and explaining risks and benefits, including , patient was eventually agreeable. S/p temporary hemodialysis catheter placement and hemodialysis session 05/21. 5 dialysis sessions since 05/21. MWF schedule. Plan: -On hemodialysis s/p temporary cath (05/21/2025) -Monitor Renal Panel every other day (MWF based on dialysis schedule) -Monitor I&O's -Avoid nephrotoxic agents -Renally dose medication -Nephrology Dr. Li consulted, appreciate recommendations #Acute on Chronic Respiratory Failure secondary to mucous plug #Healthcare-Associated Pneumonia #Leukocytosis Patient noted to have acute on chronic respiratory failure, required bronchoscopy w/ mucous plugs removed. Previous sputum Pseudomnas (04/03/2025) 05/09/2025 Bronchial washing culture grew pseudomonas, sensitive to Zosyn Vancomycin (05/09/2025-05/12/25) and doxycycline (05/12-05/13) were discontinued due to nephrotoxicity. Completed Zosyn course (05/09-05/16/25) Of note, patient has history of Pseudomonnas infection Completed Levofloxacin (05/14/25-05/21/25), Completed antibiotics 05/21/25: Patient was having difficulty breathing this morning due to tracheostomy misalignment. Consulted ICU, plan for tracheostomy adjustment today. Completed IV Solumedrol 40 mg IVP BID for 5-7 days (05/22-05/29) s/p bronchoscopy Plan: -DuoNeb, Mucomyst and chest physiotherapy scheduled - Continue oral and tracheostomy care -Blow-by during the day, mechanical ventilation at night as needed at baseline, currently on mechanical ventilation #Paroxysmal atrial fibrillation, rate controlled on Amiodarone #Complete Heart Block, s/p cardioversion (05/09/2025) Patient experienced complete heart block last month, required pacing s/p cardioversion. Given history of atrial fibrillation, continue amiodarone. Not anticoagulated given increased risk of bleeding secondary to decubitus ulcers. 05/13: Discussed with prepress operator?will start on amiodarone previous dose, 200 mg daily. Per cardiology patient is a poor candidate for pacemaker placement, patient was informed at bedside by cardiology team. He verbalized understanding. [id number] score of 3 points indicating 3.2% risk of stroke per year HAS-BLED: 3. High risk of major bleeding Plan: - Continue Amiodarone 200 mg once daily - Patient will need anticoagulation, however has low hemoglobin, bleeding wound will defer anticoagulation - Cardiology consulted, Dr. Barahona, appreciate recommendations #Congestive heart failure, HFpEF 65% #Diastolic dysfunction, grade 3 #Pulmonary hypertension #Right heart failure #BASIA/OHS #Moderate to severe a AOV calcification with no stenosis Patient has a past medical history of right heart failure, Diastolic dysfunction, and HFpEF 65% likely in the setting of cardiomypoathy secondary to morbid obesity form BASIA/OHS. Given Cxr noted with prominent vascular congestion, consider repeat BNP, although hemodynamically unstable given pressors but may consider. Trace peripheral edema noted. Dry BNP 135 Cxr (05/09/2025): Mild Heart Failure, Prominent vascular congestion and Moderate to large right pleural effusion Echo (04/29/2025): Normal LV size and function. Estimated EF of 65%. Grade III Diastolic Dysfunction.Right ventricle is dilated with mild RV dysfunction RVSP 47mmHg. RAP 15mmHg.Severe biatrial dilation.Moderate to Severe AOV calcification with no stenosis <ild tricuspid regurgitation. No pericardial effusion. Lipid Panel: Triglycerides 121, Cholesterol 155, LDL 102, HDL 29 ASCD: 23.7%, high intensity statin recommended Weight (05/28/2025): 198.5 kg Plan -ESRD, no diuresis -Atorvastatin 40 mg HS -Recommended patient to sit up in bed to help relieve IVC pressure -Patient 1500 cc/day fluid restriction, daily weights, tube feeds resumed -K >4 and Mg >2, replete with caution given ESRD -Cardiology consulted, Dr. Cody appreciate recommendations #Decubitus ulcer status post excisional debridement of sacral decubitus ulcer Recent debridement of large decubitus ulcer on 05/02/2025 likely secondary to morbid obestiy and lack of mobility. 04/29: excisional debridement of sacral decubitus ulcer, washout and placement of wound VAC. 05/02: Patient had significant bleeding overnight, wound VAC leaked. Hemoglobin stable this morning, patient's bleeding from wound overnight was controlled with suture ligation. Wound was assessed by general surgeon, patient was transitioned back to red dry dressings daily. 05/29: Sacral wound debridement by general surgeon Dr. Ca Plan: -Start on Lidocaine patch -Wound care following -[place] for pain as needed #Hyperglycemic, secondary to steriods #DM2, insulin dependent #Morbid obesity Past medical history of diabetes mellitus type 2 insulin-dependent on home insulin of glargine 38 units daily with sliding scale, and Mounjaro 2.5 mg subcu weekly. 05/28/2025: Glargine 30 increased to Glargine 50 qday & Glargine 20 units PM-->Glargine 30 units HS. Plant to de-escalate after completion of steriod course. Patient has a BMI of 79.5->68.7 A1c (03/05/2025) 7.6% Plan: -Glargine: Glargine 50 units QDay -Discontinue Glargine 30 units HS, completed IV solumedrol course -Continue ISS scale 3 ?Reevaluate insulin requirements daily based on fingerstick glucose or blood glucose - Hypoglycemia protocol #Jejunostomy tube #Abdominal abscess - resolved Patient report said that there was an intra-abdominal abscess that have could have been from a perforated ulcer in the past See also note reviewed, mentions that patient likely had a marginal ulcer, but also was not seen on EGD without, currently patient has no abdominal tenderness and is totally asymptomatic. No current drain at this time Patient is status post laparoscopic J-tube placement and is currently on feeds Patient will continue to have this tube and will likely go to a long-term care facility with this until patient can swallow safely Plan: ? Monitor vitals closely #Normocytic normochromic anemia - stable Multifactorial. Patient's baseline hemoglobin throughout the hospitalization has been in the range 9?11, patient did have some bleeding from wound VAC site on 05/02 which was controlled by suture ligation by general surgery. Had recurrent bleeding and eventually heparin drip was held. Hgb continues to hover around 7- 8. - Patient is a Islam, denies any blood transfusion/blood products ?Will stop monitoring ? Patient on EPO with dialysis #Right internal jugular venous thrombosis #Right arm swelling Continuing free water flushes, patient has gone multiple days of heparin drip since 05/19 Right upper extremity ultrasound May 04-shows right IJ thrombus Plan: ? Continue to hold heparin drip due to recurrent sacral ulcer bleeding Health Maintenance Disposition: Pending LTAC DVT prophylaxis: SCDs, patient is Islam and has bleeding sacral wound GI prophylaxis: Protonix Diet: 2Cal Tube Feeds with 30 cc/hour water flush CODE STATUS: Full code Patient plan of care was discussed with the senior resident, Dr. Esquivel, and attending physician, Dr. Mendoza. Meena Dutta, PGY-1 - The patient's plan was discussed with attending Dr. Kelly Esquivel MD PGY2 Internal Medicine
--- NOTE | 2025-05-30 14:17 | PD.RESPRO ---
Documentation for date of: 05/30/25 Subjective Subjective Interval history: Mr. Ortega is a 64-year-old male with a past medical history of type 2 diabetes mellitus, history of ATN, A-fib, hypertension, severe right-sided heart failure, HFpEF, severe BASIA, status post tracheostomy and jejunostomy, patient was previously admitted here for hypoxic respiratory failure requiring mechanical ventilation, was later transferred out to [facility] for jejunostomy tube placement, complicated by abdominal abscess, patient is now transferred back to [facility] for further management. The patient was initially noted to have pneumonia and acute hypoxic respiratory failure, requiring mechanical ventilation, nephrology was consulted as patient's renal function continues to worsen. Patient had previously required hemodialysis for ATN, but is a poor dialysis candidate outpatient. 05/24/2025 No acute overnight events. Patient denies any new complaints/concerns. Urine output 887 ml last 24 hours. The plan is for the patient to receive dialysis today; kidney function tests continue to improve with dialysis. Patient denies any chest pain, shortness of breath, abdominal pain. 05/25/2025: No acute overnight events. Patient seen and examined at bedside. Dialysis done yesterday with -2.4L removed. Patient is feeling well today. No new complaints. Denies chest pain or fever. 05/26/2025: No acute overnight events. Patient seen and examined at bedside. Plan for dialysis Tuesday. Patient is feeling well today. No new complaints. Denies fever, chest pain, palpitations, shortness of breath. 05/27/2025: No acute events overnight. Patient seen and examined at bedside. Patient is getting dialysis. Patient says his breathing is on and off. Currently doing fine right now though. No new complaints. Denies fever, chest pain, palpitations, shortness of breath. 05/28/2025: No acute events overnight. Patient seen and examined at bedside. Patient is not getting dialysis today, will plan to have it done Wed 05/29. Patient's labs and vitals were reviewed. Patient says his breathing is currently not bothering him. No new complaints. Denies fever, chest pain, palpitations, shortness of breath. 05/29/2025: No acute events overnight. Patient was seen and examined at bedside. Planning to get dialysis today. Patient's ability to use his voice continues to improve. Patient says his breathing is doing well this morning. Patient denies having any new complaints/concerns. Patients vitals/labs were reviewed. Patient denies fever, chest pain, shortness of breath. 05/30/2025: No acute events overnight. Patient was seen and examined at bedside. Planning to get dialysis 05/31. Patient says his breathing is doing well this morning. Patient denies having any new complaints/concerns. Patients vitals/labs were reviewed. Patient denies fever, chest pain, shortness of breath. Exam Vital Signs Temp Pulse Resp BP Pulse Ox O2 Del Method O2 Flow Rate 97.0 F 96 19 92/73 99 Mechanical Ventilation 65 05/30/25 08:00 05/30/25 10:35 05/30/25 08:00 05/30/25 08:30 05/30/25 10:35 05/30/25 08:00 05/30/25 04:00 FiO2 35 05/30/25 12:00 Narrative Exam GENERAL APPEARANCE: Awake, alert and oriented. No acute distress. NECK: Neck supple, no JVD or bruit, R IJ dialysis catheter CARDIOVASCULAR: Heart rate regular, no murmurs LUNGS/CHEST: Lungs have some bilateral rhonchi sounds ABDOMEN: Soft, nontender, nondistended. No masses. Normal bowel sounds. EXTREMITIES: mild edema in the lower extremities, mild upper extremity edema SKIN/MSK: Skin in warm, dry and intact without rashes or lesions. Appropriate color for ethnicity. Nailbeds pink with no cyanosis or clubbing. PSYCHIATRIC: Appropriate mood and affect. NEUROLOGICAL : No neurological deficits Objective Labs 05/26/25 05:29 05/29/25 05:00 ABG Interpretation ABG results: 04/18/25 04/18/25 04/18/25 04:40 06:27 10:30 ABG pH 7.28 L 7.33 L 7.36 ABG pCO2 72 H* 67 H 61 H ABG pO2 132 H 60 L D 60 L ABG HCO3 34 H 35 H 34 H ABG O2 Saturation 100 H 93 93 ABG Base Excess 6 H 7 H 8 H 04/19/25 05/10/25 08:53 07:40 ABG pH 7.47 H D 7.52 H ABG pCO2 45 D 40 ABG pO2 66 L 60 L ABG HCO3 33 H 32 H ABG O2 Saturation 96 94 ABG Base Excess 8 H 8 H Quality Measures Quality Measures VTE prophylaxis Advance care planning discussed with:: patient Assessment & Plan Assessment Current Active Medications: Generic Name Dose Route Start Last Admin Trade Name Freq PRN Reason Stop Dose Admin Acetaminophen 650 mg 05/25/25 06:14 05/25/25 06:22 Acetaminophen 325 Mg Tablet PO 06/24/25 06:13 650 mg Q4HR PRN Administration Fever >100.3, pain Protocol Hydrocodone Bitart/Acetaminophen 1 tab 05/26/25 15:50 05/30/25 12:33 Hydrocodone/Apap 5/325 Tablet GT 05/31/25 15:49 1 tab Q6HR PRN Administration PAIN SCALE 4-10(Mod-Sev Acetylcysteine 3 ml 05/10/25 15:00 05/30/25 06:55 Acetylcysteine Rt Gloria 10% 4 Ml Nebu INH 06/09/25 14:59 3 ml Q8HRRT KOURTNEY Administration Albuterol/Ipratropium 3 ml 05/29/25 15:00 05/30/25 06:55 Albuterol/Ipratropium (Duoneb) Rt Gloria 3 Ml Nebu INH 06/28/25 14:59 3 ml Q8HRRT KOURTNEY Administration Amiodarone HCl 200 mg 05/12/25 13:45 05/30/25 08:30 Amiodarone Hcl 200 Mg Tablet GT 06/11/25 13:44 200 mg QDAY KOURTNEY Administration Atorvastatin Calcium 40 mg 05/28/25 21:00 05/29/25 21:44 Atorvastatin Calcium 20 Mg Tablet GT 06/27/25 20:59 40 mg HS KOURTNEY Administration Chlorhexidine Gluconate 15 ml 05/22/25 13:30 05/30/25 08:29 Chlorhexidine Mouthwash 0.12% Udc 15 Ml PO 06/21/25 13:29 15 ml DAILY KOURTNEY Administration Dextrose 25 ml 05/27/25 08:07 Dextrose 50%-Water Inj 50 Ml Syringe IV 06/26/25 08:06 Q15MIN PRN BG 50-70 responsive npo pt Dextrose 50 ml 05/27/25 08:07 Dextrose 50%-Water Inj 50 Ml Syringe IV 06/26/25 08:06 Q15MIN PRN BG <50 OR BG <70 & pt unresponsive Gabapentin 100 mg 05/20/25 14:30 05/30/25 14:16 Gabapentin 100 Mg Capsule GT 06/19/25 14:29 100 mg TID KOURTNEY Administration Glucagon 1 mg 05/27/25 08:07 Glucagon Inj 1 Mg Vial IM Q15MIN PRN BG <70, and no IV access Heparin Sodium (Porcine) 2,700 unit 05/21/25 16:12 05/29/25 20:03 Heparin Sod Inj 1000 Unit/Ml Vial 10 Ml INDWELLCAT 06/04/25 16:11 2,700 unit X1 PRN Administration DIALYSIS Insulin Glargine 50 unit 05/27/25 09:00 05/30/25 08:29 Insulin Glargine (Lantus) 5 Unit/0.05 Ml (Per 5 Units) SC 06/26/25 08:59 50 unit QDAY KOURTNEY Administration Insulin Human Lispro 0 unit 05/27/25 08:18 05/30/25 12:23 Insulin Lispro (Admelog) 1 Unit/0.01 Ml Unit SC 06/11/25 17:59 Not Given Q6HR KOURTNEY Protocol Lansoprazole 30 mg 05/05/25 09:00 05/30/25 08:29 Lansoprazole 30 Mg Tab.Rap. GT 06/04/25 08:59 30 mg QDAY KOURTNEY Administration Lidocaine 1 patch 05/30/25 13:56 Lidocaine 5% 1 Patch TOP 06/29/25 13:55 DAILY PRN LOCALIZED PAIN Pharmacy Consult 1 each 05/14/25 08:22 Pharmacy Renal Dose Adjustment 1 Ea XX 06/13/25 08:21 PRN PRN CONSULT Sennosides 2 tab 05/02/25 09:00 05/30/25 08:29 Senna Tablet GT 06/01/25 08:59 2 tab QDAY KOURTNEY Administration Protocol Sevelamer Carbonate 0.8 gm 05/20/25 09:45 05/30/25 12:21 Sevelamer Carbonate 0.8 Gm Packet (Non-Formulary) GT 06/19/25 09:44 0.8 gm TIDWM KOURTNEY Administration Sodium Chloride 3 ml 05/26/25 08:02 Sodium Chloride Rt Gloria 0.9% 3 Ml Nebu INH 06/25/25 08:01 PRN PRN SOLN Sodium Hypochlorite 473 ml 05/06/25 21:00 05/30/25 08:27 Sod Hypochlorite 1/4 Str 473 Ml Btl IRRIG 06/05/25 20:59 Not Given BID KOURTNEY Plan In summary, Mr. Ortega is a 64-year-old male with past medical history of DM2, hypertension, A-fib, and Jehova's witness was admitted to the ICU on 02/27/2025 for shock and acute on chronic hypoxic respiratory failure. He is s/p laparoscopic J-tube placement from [facility]. S/p temporary dialysis catheter placement and hemodialysis session 05/21, continue hemodialysis (next session planned for 05/27) as needed. Pending FADI. #Acute kidney injury likely 2/2 Ischemic ATN #Fluid overload Patient was admitted with acute kidney injury likely ischemic acute tubular necrosis, received temporary hemodialysis catheter placed 04/24, receiving dialysis had 1 L removed on 04/24, 2 L on 04/25, 2.14 on 04/26, 2.1 L on 04/29; temporary dialysis catheter discontinued on 05/06. Temporary hemodialysis catheter placement and hemodialysis session 05/21 after worsening creatinine despite diuretics being held. Plan: -Dialysis is planned for Tue (05/31) -Continue MWF dialysis schedule -Monitor I&O's -Avoid nephrotoxic agents -Renally dose medication #Acute on Chronic Respiratory Failure secondary to mucous plug #Healthcare-Associated Pneumonia #Leukocytosis #Paroxysmal atrial fibrillation #Right diastolic CHF #Decubitus ulcer #Chronic back pain #Jejunostomy tube #Normocytic normochromic anemia #Acute on Chronic Hypoxic Hypercapnic Respiratory Failure #Obesity hypoventilation syndrome and obstructive sleep apnea #Tracheostomy #Hx of A-fib #Right internal jugular venous thrombosis #Right arm swelling #Morbid obesity #DM2 Above handled by primary hospitalist team Patient seen and care discussed with my attending physician, Dr. Teressa Fox MD PGY-1 Attending Provider Attestation/Addendum Patient seen and examined with resident physician Dr. Fox. Note reviewed, agree with findings and recommendations. BUN/creatinine elevated again-patient going into ATN. Edema ++ Labs 3 times weekly with pediatric tubes due to his Gnosticism status. Had a long conversation with the patient-agreed for temporary dialysis. Unfortunately IR cannot do permanent catheter -- agreed to do temporary catheter due to his BMI. Dialysis catheter placed by Dr. Galicia in the right IJ. Next dialysis scheduled for tomorrow. He will need LTAC placement with dialysis.
--- NOTE | 2025-05-30 14:24 | PC.SS ---
Addendum entered by GREGG Boswell 05/30/25 16:19: Patient's father, Zia Ortega was also updated and provided with [facility] phone and address. Addendum entered by GREGG Boswell 05/30/25 16:03: ETA with [facility] is 1730. 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 Dispatch number is [phone]. Addendum entered by GREGG Boswell 05/30/25 15:57: Eri with respiratory was updated, RN Arina was updated and ICU charge nurse Barbie was updated. Addendum entered by GREGG Boswell 05/30/25 15:56: Received call from Janneth with [facility], she confirmed bed availability for this evening at the [place] location at the ICU [address] Fulton. [facility] Address: [address] [place] [id number] Addendum entered by GREGG Boswell 05/30/25 15:13: SS update: Janneth at [facility] is confirming bed for this evening at [place] location. She will call back with confirmation. Original Note: SS update: Received a call from Janneth [phone] with [facility], she informed that they received the FADI for the patient to d/c to their LTAC. Notified medical team to make aware, confirmation received with Eri from respiratory for an RT rider available for transportation for today.
--- NOTE | 2025-05-30 17:15 | PC.NURSE ---
[facility] came to warp picker patient to transfer to [place]. [facility] were unaware of patient's size and did not have the correct bed for transportation. Will need a special bed for transfer. Tried to reach park services specialist to make aware. Charge nurse aware.
--- NOTE | 2025-05-30 18:06 | PC.NURSE ---
Blood sugar 48. No symptoms. Called Dr colin. will put in new orders.
[2025-05-30] MEDS: DEXTROSE 50%-WATER INJ 50 ML SYRINGE IVP (18:11)
--- NOTE | 2025-05-30 18:37 | PC.NURSE ---
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
--- NOTE | 2025-05-30 18:43 | ESPR_ITS ---
<Statement entered by Lenora John MD - 06/02/25 17:38> . I personally examined the patient evaluated the patient appears to be doing much better, clinically stable on amiodarone via G-tube patient's awaiting transfer to LTAC unit and patient is stable from cardiovascular point of view for transfer continue current medication including amiodarone for A-fib rate control and patient to be continued on dialysis as an outpatient as well. Evaluated the patient along with resident physician PGY 2 Dr. Kirk Ahumada Documentation for date of: 05/31/25 Subjective Subjective Interval history: Patient is seen and examined at bedside Denies any other complaints. Patient is supposed to get discharged today but due to some issue with the ambulance, discharge is postponed to tomorrow Vitals are stable and patient is atrial fibrillation with controlled ventricular rate Recommend to continue amiodarone 200 Mg through G-tube daily Exam Vital Signs Temp Pulse Resp BP Pulse Ox O2 Del Method O2 Flow Rate 97.1 F 94 17 112/61 96 Mechanical Ventilation 65 05/31/25 16:00 05/31/25 16:00 05/31/25 16:00 05/31/25 16:00 05/31/25 16:00 05/31/25 16:00 05/31/25 04:00 FiO2 35 05/31/25 14:45 Narrative Exam General: Awake. obese. Tracheostomy tube insitu on SIMV mode HEENT: Normocephalic, atraumatic, mucous membranes moist. Heart: IRRegular rate and rhythm, no murmurs. Lungs: Clear to auscultation with no wheezing or crackles. But noted decreased breath sounds bilaterally in view of body habitus. noted right IJV catheter on right side Abdomen: Soft, nondistended, nontender, positive bowel sounds. ?No guarding or rebound tenderness. Neurologic: Alert and oriented x3, no gross neurological deficit, and patient able to move all 4 extremities. Extremities: No edema. Skin: Large sacral ulcer in the gluteal region, Decubitus Grade III/IV Objective Labs 05/26/25 05:29 05/31/25 05:50 Labs: Laboratory Results - last 24 hr 05/31/25 05:50 Sodium 139 Potassium 3.9 Chloride 100 Carbon Dioxide 28.0 Anion Gap 11 BUN 80 H Creatinine 2.0 H Estim Creat Clear Calc 61.1 eGFR 36 L BUN/Creatinine Ratio 40 H Glucose 46 L* D Calculated Osmolality 298 H Calcium 8.4 Corrected Calcium 9.3 Phosphorus 4.9 Magnesium 2.3 Albumin 2.9 L ABG Interpretation ABG results: 04/18/25 04/18/25 04/18/25 04:40 06:27 10:30 ABG pH 7.28 L 7.33 L 7.36 ABG pCO2 72 H* 67 H 61 H ABG pO2 132 H 60 L D 60 L ABG HCO3 34 H 35 H 34 H ABG O2 Saturation 100 H 93 93 ABG Base Excess 6 H 7 H 8 H 04/19/25 05/10/25 08:53 07:40 ABG pH 7.47 H D 7.52 H ABG pCO2 45 D 40 ABG pO2 66 L 60 L ABG HCO3 33 H 32 H ABG O2 Saturation 96 94 ABG Base Excess 8 H 8 H Quality Measures Quality Measures VTE prophylaxis Advance care planning discussed with:: patient Assessment & Plan Assessment Current Active Medications: Generic Name Dose Route Start Last Admin Trade Name Freq PRN Reason Stop Dose Admin Acetaminophen 650 mg 05/25/25 06:14 05/25/25 06:22 Acetaminophen 325 Mg Tablet PO 06/24/25 06:13 650 mg Q4HR PRN Administration Fever >100.3, pain Protocol Acetylcysteine 3 ml 05/10/25 15:00 05/31/25 14:41 Acetylcysteine Rt Gloria 10% 4 Ml Nebu INH 06/09/25 14:59 3 ml Q8HRRT KOURTNEY Administration Albuterol/Ipratropium 3 ml 05/29/25 15:00 05/31/25 14:40 Albuterol/Ipratropium (Duoneb) Rt Gloria 3 Ml Nebu INH 06/28/25 14:59 3 ml Q8HRRT KOURTNEY Administration Amiodarone HCl 200 mg 05/12/25 13:45 05/31/25 11:30 Amiodarone Hcl 200 Mg Tablet GT 06/11/25 13:44 200 mg QDAY KOURTNEY Administration Ascorbic Acid 500 mg 05/30/25 21:00 05/31/25 11:30 Ascorbic Acid 250 Mg Tablet GT 06/29/25 20:59 500 mg BID KOURTNEY Administration Atorvastatin Calcium 40 mg 05/28/25 21:00 05/30/25 21:18 Atorvastatin Calcium 20 Mg Tablet GT 06/27/25 20:59 40 mg HS KOURTNEY Administration Chlorhexidine Gluconate 15 ml 05/22/25 13:30 05/31/25 15:55 Chlorhexidine Mouthwash 0.12% Udc 15 Ml PO 06/21/25 13:29 15 ml DAILY KOURTNEY Administration Dextrose 25 ml 05/27/25 08:07 05/31/25 11:53 Dextrose 50%-Water Inj 50 Ml Syringe IV 06/26/25 08:06 25 ml Q15MIN PRN Administration BG 50-70 responsive npo pt Dextrose 50 ml 05/27/25 08:07 Dextrose 50%-Water Inj 50 Ml Syringe IV 06/26/25 08:06 Q15MIN PRN BG <50 OR BG <70 & pt unresponsive Gabapentin 100 mg 05/20/25 14:30 05/31/25 15:48 Gabapentin 100 Mg Capsule GT 06/19/25 14:29 100 mg TID KOURTNEY Administration Glucagon 1 mg 05/27/25 08:07 Glucagon Inj 1 Mg Vial IM Q15MIN PRN BG <70, and no IV access Heparin Sodium (Porcine) 2,700 unit 05/21/25 16:12 05/31/25 10:49 Heparin Sod Inj 1000 Unit/Ml Vial 10 Ml INDWELLCAT 06/04/25 16:11 2,700 unit X1 PRN Administration DIALYSIS Insulin Glargine 25 unit 06/01/25 09:00 Insulin Glargine (Lantus) 5 Unit/0.05 Ml (Per 5 Units) DE 07/01/25 08:59 QAM [facility] Insulin Human Lispro 0 unit 05/30/25 18:05 05/31/25 05:11 Insulin Lispro (Admelog) 1 Unit/0.01 Ml Unit DE 06/11/25 17:59 Not Given Q6HR [facility] Protocol Lansoprazole 30 mg 05/05/25 09:00 05/31/25 11:30 Lansoprazole 30 Mg Tab.Joshua. GT 06/04/25 08:59 30 mg QDAY KOURTNEY Administration Lidocaine 1 patch 05/30/25 13:56 Lidocaine 5% 1 Patch TOP 06/29/25 13:55 DAILY PRN LOCALIZED PAIN Pharmacy Consult 1 each 05/14/25 08:22 Pharmacy Renal Dose Adjustment 1 Ea XX 06/13/25 08:21 PRN PRN CONSULT Prednisone 20 mg 05/31/25 09:00 05/31/25 11:31 Prednisone 20 Mg Tablet PO 06/07/25 08:09 20 mg BID KOURTNEY Administration Sennosides 2 tab 05/02/25 09:00 05/31/25 11:30 Senna Tablet GT 06/01/25 08:59 2 tab QDAY KOURTNEY Administration Protocol Sevelamer Carbonate 0.8 gm 05/20/25 09:45 05/31/25 17:42 Sevelamer Carbonate 0.8 Gm Packet (Non-Formulary) GT 06/19/25 09:44 0.8 gm TIDWM KOURTNEY Administration Sodium Chloride 3 ml 05/26/25 08:02 Sodium Chloride Rt Gloria 0.9% 3 Ml Nebu INH 06/25/25 08:01 PRN PRN SOLN Sodium Hypochlorite 473 ml 05/06/25 21:00 05/31/25 12:34 Sod Hypochlorite 1/4 Str 473 Ml Btl IRRIG 06/05/25 20:59 Not Given BID KOURTNEY Plan Mr. Ortega is a 64-year-old male, Jew with a past medical history of hypertension, diabetes mellitus type 2, history of atrial fibrillation, CHF HFpEF 65%, grade 3 diastolic dysfunction, right heart failure, RSVP 47, moderate to severe ALB calsifications with no stenosis, status post tracheostomy, s/p PEG Tube at [facility], bariatric team, history of dyspahagia, extensive decubitus ulcers, CKD, history of anemia, history of Diego-en- Y gastric bypass, BASIA/OHS, and morbid obesity. Patient was upgraded to ICU for a third time with in acute respiratory respiratory failure secondary to mucous plug and shock, likely cardiogenic shock secondary to complete heart block requiring pressors and downgraded again # A-fib with RVR - s/p cardioversion ---> CVR # Bradycardia and questionable complete heart block, resolved - Patient was hypoxic and was transferred to the ICU on 05/09/2025. - Cardiology was consulted 05/09/2025 for significant bradycardia requiring external temporary transcutaneous pacing. - Plan was to place a temporary transvenous pacemaker if the patient continues to be bradycardic as he was 100% dependent on the transcutaneous pacing. - Bronchoscopy was performed which showed small mucous plug which was removed and patient rhythm was back to his atrial fibrillation with RVR. - Patient was on dopamine at that point of time. Patient blood pressure was on the lower side and was unstable and required cardioversion x 1. - Patient was on levophed and phenylephrine for a short period of time. - Patient is presently ventilator dependent and has a tracheostomy in place along with a jejunostomy. Plan - Recommend to continue telemetry monitoring - In view of ongoing sacral ulcer with recurrent infections, pacemaker placement cannot be done. But fortunately patient did not have any further episodes of bradycardia. So no need of pacemaker placement as of now - Recommended to continue amiodarone 200 Mg G-tube once daily - As patient had large decubitus ulcer and has tendency to bleed, anticoagulation is held for now # H/O CHF, HFpEF 65% #Diastolic dysfunction, grade 3 #Pulmonary hypertension #BASIA/OHS #Moderate to severe a AOV calcification with no stenosis #Moderate Right Pleural Effusion - Patient has a past medical history of right heart failure, Diastolic dysfunction, and HFpEF 65% likely in the setting of cardiomypoathy secondary to morbid obesity form BASIA/OHS. - [facility] 03/19/2025: RAP 8, PAP 27, PCWP 7. - Echo (04/29/2025): Normal LV size and function. Estimated EF of 65%. Grade III Diastolic Dysfunction.Right ventricle is dilated with mild RV dysfunction RVSP 47mmHg. RAP 15mmHg.Severe biatrial dilation.Moderate to Severe AOV calcification with no stenosis <ild tricuspid regurgitation. No pericardial effusion. - Echo (05/14/2025) : Normal LV size and function. Estimated EF is 55 to 60%. Severely RA dilated right ventricle as well as right atrium. IVS flattening noted both in systole and diastole indicating both pressure and volume overload Plan -Recommended to hold diuresis for now due to kidney function and pt does not appear to be fluid overloaded -Pt will be getting dialysis on 05/21/25 -K >4 and Mg >2 #Acute on Chronic Respiratory Failure secondary to mucus plug #Healthcare-Associated Pneumonia #Leukocytosis #Large Sacral Decubitus Ulcer s/p excisional debridement (05/02/2025) #CKD stage III #Jejunostomy #History of abdominal abscess s/p percutaneous drainage #Diabetes Mellitus Type 2 non insulin depedent #Normocytic Anemia Management of rest of the medical conditions as per primary team and other consultants. Thank you for the consult and allowing us to participate in the care of the patient. Cardiology will continue to follow. Patient plan of care was discussed with the laborer road, Dr. Alvaro Ahumada, PGY2
[2025-05-30] MEDS: ATORVASTATIN CALCIUM 20 MG TABLET 40 MG GT ×2 (21:18)
[2025-05-30] MEDS: ASCORBIC ACID 250 MG TABLET 500 MG GT (21:19)
[2025-05-31] VITALS (25 sets, daily range): BP systolic 97–140; BP diastolic 42–85; PULSE 82–115; RESP 11–21; TEMP 36–36.6; O2SAT 96–100; BMI 67.1
[2025-05-31] MEDS: GABAPENTIN 100 MG CAPSULE GT ×2 (05:14→15:48)
[2025-05-31] MEDS: ALBUTEROL/IPRATROPIUM (Duoneb) RT SOL 3 ML NEBU INH ×2 (06:44→14:40)
[2025-05-31 06:58] LABS: Albumin, Serum 2.9 gm/dL (3.4-4.8); Anion Gap 11 (7-16); BUN/Creatinine Ratio 40 Ratio (12-20); Blood Urea Nitrogen 80 mg/dL (9-23); Calcium 8.4 mg/dL (8.3-10.6); Calcium (Corrected) 9.3 mg/dL (8.5-10.1); Carbon Dioxide 28.0 mMol/L (20.0-31.0); Chloride 100 mMol/L (98-107); Creatinine (Component) 2.0 mg/dL (0.6-1.3); Estimated Creatinine Clearance 61.1 mL/min (>60); Magnesium 2.3 mg/dL (1.6-2.6); Osmolality,Calculated 298 (275-295); Phosphorous 4.9 mg/dL (2.4-5.1); Potassium 3.9 mMol/L (3.4-5.1); Sodium 139 mMol/L (136-145); eGFR 36 See Note
[2025-05-31 07:00] LABS: Glucose 46 mg/dL (74-106)
[2025-05-31] MEDS: DEXTROSE 50%-WATER INJ 50 ML SYRINGE 25 ML IV ×3 (07:10→11:53)
--- NOTE | 2025-05-31 08:26 | PC.SS ---
SS follow up: Per bedside RN Celeste, the patient did not discharge yesterday evening as [facility] transportation did not have the appropriate gurney bed available for the patient to be transported to [facility]. Updated load planner Janessa to make aware.
--- NOTE | 2025-05-31 09:00 | PC.SS ---
SS has spoken to Amairani from dispatch who explained they are unable to accommodate the gurney size and weight and bariatric gurney does not go out of [facility]. SS has also spoken to the supervisor engine assembly, Dagmar from dispatch who explained [facility] gurneys do no go out of [facility]. SS has attempted to call Sharon from [facility] 2 X times this morning but SS was only able to leave voicemail.
--- NOTE | 2025-05-31 09:06 | PC.SS ---
Addendum entered by Janessa Ramírez 05/31/25 16:10: [id number] [place] [address] [address] Janneth [phone] ([facility]) report# [phone] Addendum entered by Janessa Ramírez 05/31/25 15:38: SS has received call from Patricia from dispatch who explained [facility] is unable to accommodate patient's weight. Patricia also contacted [facility] in [place] who explained due to high city levels they are unable to accommodate transportation today. SS has explained pt is ready for d/c and has different facility accepting tonight after 8:30pm. SS has updated Rosa from patient's health insurance and she explained they are not authorizing air left and air left is only for emergencies. Addendum entered by Janessa Ramírez 05/31/25 14:59: SS has spoken to Janneth, escrow representative from [facility] who explained [facility] is unable to accep pt but [address] [place] [address] is able to accept pt today after 8:30pm. has setup transportation with Patricia from dispatch for 6:30pm. SS has spoken to Brando from RT to request RT rider at 6:30. Pt is aware. Bedside nurse, Celeste is aware and has been provided with phone# [phone] for report. UC is aware. Meka from [facility] is aware. has informed Patricia pt is on trach, vent, peg and patient's weight. Addendum entered by Janessa Ramírez 05/31/25 11:08: SS has spoken to Patricia from dispatch who ambulance from [place] will accommodate transportation. Patricia is aware patient's weight is 427 lbs. SS followed up with Sharon from [facility] who explained bed possibly is not available anymore due to pt not arriving yesterday. Sharon is aware to contact SS once she has bed available. RT is aware pt possible d/c to LTAC later today if they have bed available. Pt is aware. Dad is aware. Addendum entered by Janessa Ramírez 05/31/25 09:37: SS spoke to Thalia from [facility] in [place] who explained they are able to accommodate pt being bariatric, with vent, trach, peg, and going to [facility] in [place] but they do not travel outside of their county. Thalia from [facility] explained they would have to be contacted from our local dispatch team. SS has called Patricia from [facility] who is aware and is going to reach out to her team. Original Note: SS received call from Sharon from [facility] who is aware we are seeking transportation. Sharon explained they do not have transportation vendor to come chart picker pt from [facility] with RT rider.
--- NOTE | 2025-05-31 09:45 | PD.RESPRO ---
Documentation for date of: 05/31/25 Subjective Subjective Interval history: Mr. Ortega is a 64-year-old male with a past medical history of type 2 diabetes mellitus, history of ATN, A-fib, hypertension, severe right-sided heart failure, HFpEF, severe BASIA, status post tracheostomy and jejunostomy, patient was previously admitted here for hypoxic respiratory failure requiring mechanical ventilation, was later transferred out to [facility] for jejunostomy tube placement, complicated by abdominal abscess, patient is now transferred back to [facility] for further management. The patient was initially noted to have pneumonia and acute hypoxic respiratory failure, requiring mechanical ventilation, nephrology was consulted as patient's renal function continues to worsen. Patient had previously required hemodialysis for ATN, but is a poor dialysis candidate outpatient. 05/24/2025 No acute overnight events. Patient denies any new complaints/concerns. Urine output 887 ml last 24 hours. The plan is for the patient to receive dialysis today; kidney function tests continue to improve with dialysis. Patient denies any chest pain, shortness of breath, abdominal pain. 05/25/2025: No acute overnight events. Patient seen and examined at bedside. Dialysis done yesterday with -2.4L removed. Patient is feeling well today. No new complaints. Denies chest pain or fever. 05/26/2025: No acute overnight events. Patient seen and examined at bedside. Plan for dialysis Tuesday. Patient is feeling well today. No new complaints. Denies fever, chest pain, palpitations, shortness of breath. 05/27/2025: No acute events overnight. Patient seen and examined at bedside. Patient is getting dialysis. Patient says his breathing is on and off. Currently doing fine right now though. No new complaints. Denies fever, chest pain, palpitations, shortness of breath. 05/28/2025: No acute events overnight. Patient seen and examined at bedside. Patient is not getting dialysis today, will plan to have it done Wed 05/29. Patient's labs and vitals were reviewed. Patient says his breathing is currently not bothering him. No new complaints. Denies fever, chest pain, palpitations, shortness of breath. 05/29/2025: No acute events overnight. Patient was seen and examined at bedside. Planning to get dialysis today. Patient's ability to use his voice continues to improve. Patient says his breathing is doing well this morning. Patient denies having any new complaints/concerns. Patients vitals/labs were reviewed. Patient denies fever, chest pain, shortness of breath. 05/30/2025: No acute events overnight. Patient was seen and examined at bedside. Planning to get dialysis 05/31. Patient says his breathing is doing well this morning. Patient denies having any new complaints/concerns. Patients vitals/labs were reviewed. Patient denies fever, chest pain, shortness of breath. 05/31/2025: No acute events overnight. Patient was seen and examined at bedside. Planning for dialysis today. Patient denies having any new complaints/concerns. Patients vitals/labs were reviewed. Patient denies fever, chest pain, shortness of breath. Exam Vital Signs Temp Pulse Resp BP Pulse Ox O2 Del Method O2 Flow Rate 97.2 F 86 19 125/64 98 Mechanical Ventilation 65 05/31/25 08:00 05/31/25 09:30 05/31/25 08:00 05/31/25 09:30 05/31/25 08:00 05/31/25 08:00 05/31/25 04:00 FiO2 35 05/31/25 07:51 Narrative Exam GENERAL APPEARANCE: Awake, alert and oriented. No acute distress. NECK: Neck supple, no JVD or bruit, R IJ dialysis catheter CARDIOVASCULAR: Heart rate regular, no murmurs LUNGS/CHEST: Lungs have some bilateral rhonchi sounds ABDOMEN: Soft, nontender, nondistended. No masses. Normal bowel sounds. EXTREMITIES: mild edema in the lower extremities, mild upper extremity edema SKIN/MSK: Skin in warm, dry and intact without rashes or lesions. Appropriate color for ethnicity. Nailbeds pink with no cyanosis or clubbing. PSYCHIATRIC: Appropriate mood and affect. NEUROLOGICAL : No neurological deficits Objective Labs 05/26/25 05:29 05/31/25 05:50 Labs: Laboratory Results - last 24 hr 05/31/25 05:50 Sodium 139 Potassium 3.9 Chloride 100 Carbon Dioxide 28.0 Anion Gap 11 BUN 80 H Creatinine 2.0 H Estim Creat Clear Calc 61.1 eGFR 36 L BUN/Creatinine Ratio 40 H Glucose 46 L* D Calculated Osmolality 298 H Calcium 8.4 Corrected Calcium 9.3 Phosphorus 4.9 Magnesium 2.3 Albumin 2.9 L ABG Interpretation ABG results: 04/18/25 04/18/25 04/18/25 04:40 06:27 10:30 ABG pH 7.28 L 7.33 L 7.36 ABG pCO2 72 H* 67 H 61 H ABG pO2 132 H 60 L D 60 L ABG HCO3 34 H 35 H 34 H ABG O2 Saturation 100 H 93 93 ABG Base Excess 6 H 7 H 8 H 04/19/25 05/10/25 08:53 07:40 ABG pH 7.47 H D 7.52 H ABG pCO2 45 D 40 ABG pO2 66 L 60 L ABG HCO3 33 H 32 H ABG O2 Saturation 96 94 ABG Base Excess 8 H 8 H Quality Measures Quality Measures VTE prophylaxis Advance care planning discussed with:: patient Assessment & Plan Assessment Current Active Medications: Generic Name Dose Route Start Last Admin Trade Name Freq PRN Reason Stop Dose Admin Acetaminophen 650 mg 05/25/25 06:14 05/25/25 06:22 Acetaminophen 325 Mg Tablet PO 06/24/25 06:13 650 mg Q4HR PRN Administration Fever >100.3, pain Protocol Hydrocodone Bitart/Acetaminophen 1 tab 05/26/25 15:50 05/30/25 18:46 Hydrocodone/Apap 5/325 Tablet GT 05/31/25 15:49 1 tab Q6HR PRN Administration PAIN SCALE 4-10(Mod-Sev Acetylcysteine 3 ml 05/10/25 15:00 05/31/25 06:44 Acetylcysteine Rt Gloria 10% 4 Ml Nebu INH 06/09/25 14:59 Not Given Q8HRRT KOURTNEY Albuterol/Ipratropium 3 ml 05/29/25 15:00 05/31/25 06:44 Albuterol/Ipratropium (Duoneb) Rt Gloria 3 Ml Nebu INH 06/28/25 14:59 3 ml Q8HRRT KOURTNEY Administration Amiodarone HCl 200 mg 05/12/25 13:45 05/30/25 08:30 Amiodarone Hcl 200 Mg Tablet GT 06/11/25 13:44 200 mg QDAY KOURTNEY Administration Ascorbic Acid 500 mg 05/30/25 21:00 05/30/25 21:19 Ascorbic Acid 250 Mg Tablet GT 06/29/25 20:59 500 mg BID KOURTNEY Administration Atorvastatin Calcium 40 mg 05/28/25 21:00 05/30/25 21:18 Atorvastatin Calcium 20 Mg Tablet GT 06/27/25 20:59 40 mg HS KOURTNEY Administration Chlorhexidine Gluconate 15 ml 05/22/25 13:30 05/30/25 08:29 Chlorhexidine Mouthwash 0.12% Udc 15 Ml PO 06/21/25 13:29 15 ml DAILY KOURTNEY Administration Dextrose 25 ml 05/27/25 08:07 05/31/25 07:55 Dextrose 50%-Water Inj 50 Ml Syringe IV 06/26/25 08:06 25 ml Q15MIN PRN Administration BG 50-70 responsive npo pt Dextrose 50 ml 05/27/25 08:07 Dextrose 50%-Water Inj 50 Ml Syringe IV 06/26/25 08:06 Q15MIN PRN BG <50 OR BG <70 & pt unresponsive Epoetin Rambo 10,000 unit 05/31/25 10:00 Epoetin Rambo-Epbx Inj 10,000 Unit/Ml Vial (Esrd) SC 05/31/25 10:01 X1 ONE Gabapentin 100 mg 05/20/25 14:30 05/31/25 05:14 Gabapentin 100 Mg Capsule GT 06/19/25 14:29 100 mg TID KOURTNEY Administration Glucagon 1 mg 05/27/25 08:07 Glucagon Inj 1 Mg Vial IM Q15MIN PRN BG <70, and no IV access Heparin Sodium (Porcine) 2,700 unit 05/21/25 16:12 05/29/25 20:03 Heparin Sod Inj 1000 Unit/Ml Vial 10 Ml INDWELLCAT 06/04/25 16:11 2,700 unit X1 PRN Administration DIALYSIS Insulin Glargine 25 unit 06/01/25 09:00 Insulin Glargine (Lantus) 5 Unit/0.05 Ml (Per 5 Units) CO 07/01/25 08:59 QAM [facility] Insulin Human Lispro 0 unit 05/30/25 18:05 05/31/25 05:11 Insulin Lispro (Admelog) 1 Unit/0.01 Ml Unit CO 06/11/25 17:59 Not Given Q6HR [facility] Protocol Lansoprazole 30 mg 05/05/25 09:00 05/30/25 08:29 Lansoprazole 30 Mg Tab.Rap. GT 06/04/25 08:59 30 mg QDAY KOURTNEY Administration Lidocaine 1 patch 05/30/25 13:56 Lidocaine 5% 1 Patch TOP 06/29/25 13:55 DAILY PRN LOCALIZED PAIN Pharmacy Consult 1 each 05/14/25 08:22 Pharmacy Renal Dose Adjustment 1 Ea XX 06/13/25 08:21 PRN PRN CONSULT Prednisone 20 mg 05/31/25 09:00 Prednisone 20 Mg Tablet PO 06/07/25 08:09 BID KOURTNEY Sennosides 2 tab 05/02/25 09:00 05/30/25 08:29 Senna Tablet GT 06/01/25 08:59 2 tab QDAY KOURTNEY Administration Protocol Sevelamer Carbonate 0.8 gm 05/20/25 09:45 05/31/25 09:12 Sevelamer Carbonate 0.8 Gm Packet (Non-Formulary) GT 06/19/25 09:44 Not Given TIDWM KOURTNEY Sodium Chloride 3 ml 05/26/25 08:02 Sodium Chloride Rt Gloria 0.9% 3 Ml Nebu INH 06/25/25 08:01 PRN PRN SOLN Sodium Hypochlorite 473 ml 05/06/25 21:00 05/30/25 21:15 Sod Hypochlorite 1/4 Str 473 Ml Btl IRRIG 06/05/25 20:59 Not Given BID KOURTNEY Plan In summary, Mr. Ortega is a 64-year-old male with past medical history of DM2, hypertension, A-fib, and Jehova's witness was admitted to the ICU on 02/27/2025 for shock and acute on chronic hypoxic respiratory failure. He is s/p laparoscopic J-tube placement from [facility]. S/p temporary dialysis catheter placement and hemodialysis session 05/21, continue hemodialysis (next session planned for 05/27) as needed. #Acute kidney injury likely 2/2 Ischemic ATN #Fluid overload Patient was admitted with acute kidney injury likely ischemic acute tubular necrosis, received temporary hemodialysis catheter placed 04/24, receiving dialysis had 1 L removed on 04/24, 2 L on 04/25, 2.14 on 04/26, 2.1 L on 04/29; temporary dialysis catheter discontinued on 05/06. Temporary hemodialysis catheter placement and hemodialysis session 05/21 after worsening creatinine despite diuretics being held. Plan: -Dialysis is planned for Tue (05/31) -Make sure LTAC for placement has dialysis -Continue MWF dialysis schedule -Monitor I&O's -Avoid nephrotoxic agents -Renally dose medication #Acute on Chronic Respiratory Failure secondary to mucous plug #Healthcare-Associated Pneumonia #Leukocytosis #Paroxysmal atrial fibrillation #Right diastolic CHF #Decubitus ulcer #Chronic back pain #Jejunostomy tube #Normocytic normochromic anemia #Acute on Chronic Hypoxic Hypercapnic Respiratory Failure #Obesity hypoventilation syndrome and obstructive sleep apnea #Tracheostomy #Hx of A-fib #Right internal jugular venous thrombosis #Right arm swelling #Morbid obesity #DM2 Above handled by primary hospitalist team Patient seen and care discussed with my attending physician, Dr. Teressa Fox MD PGY-1 Attending Provider Attestation/Addendum Patient seen and examined with resident physician Dr. Fox. Note reviewed, agree with findings and recommendations. BUN/creatinine elevated again-patient going into ATN. Edema ++ Labs 3 times weekly with pediatric tubes due to his Voodoo status. Had a long conversation with the patient-agreed for temporary dialysis. Unfortunately IR cannot do permanent catheter -- agreed to do temporary catheter due to his BMI. Dialysis catheter placed by Dr. Galicia in the right IJ. Patient currently seen on dialysis. Tolerating dialysis without any problems. Hemodialysis for 3 hours, 2K, ultrafiltration 1 L, Epogen 6000, no heparin ordered. Plan of care discussed with the dialysis nurse. Please see dialysis flowsheet for further details. He will need LTAC placement with dialysis. Patient might be discharged today.
[2025-05-31] MEDS: EPOETIN ALFA-EPBX INJ 10,000 UNIT/ML VIAL (ESRD) 10000 UNIT SC (10:38)
[2025-05-31] MEDS: HEPARIN SOD INJ 1000 UNIT/ML VIAL 10 ML 2700 UNIT INDWELLCAT (10:49)
[2025-05-31] MEDS: ASCORBIC ACID 250 MG TABLET 500 MG GT (11:30)
[2025-05-31] MEDS: AMIODARONE HCL 200 MG TABLET GT (11:30)
[2025-05-31] MEDS: LANSOPRAZOLE 30 MG TAB.RAP.DR GT (11:30)
[2025-05-31] MEDS: DEXTROSE 50%-WATER INJ 50 ML SYRINGE 25 ML IVP (11:55)
[2025-05-31] MEDS: SEVELAMER CARBONATE 0.8 GM PACKET (NON-FORMULARY) GT ×2 (12:00→17:42)
--- NOTE | 2025-05-31 13:19 | ESDS_ITS ---
<Statement entered by Pavel Mendoza MD - 06/11/25 07:43> I reviewed above note and agree with findings and plans. I have also personally examined the patient with medicine team and went over assessment and plan with medical team including manager of international and resident physician. Planned Discharge Date 05/31/25 DS: Providers Provider Date of admission: 04/12/25 22:48 Primary care physician: Physician No Primary/Family Admitting Provider: Tres Magana MD Attending Provider on Admission: Pavel Mendoza MD Consults: 04/12/25 23:33 Referral Registered Dietitian Routine Comment: tube feeds Referral Wound Care Routine Comment: 04/12/25 23:38 Referral Respiratory Therapy Routine Comment: trach and vent 04/13/25 08:46 Referral Physical Therapy Routine Comment: Physician Instructions: 04/14/25 10:32 Referral Pharmacy Routine Comment: Reason for Consult: Adjust Dosing per weight 04/15/25 16:49 Consult to General Surgery Routine Comment: Sacral Ulcer Consulting Provider: Negrita Negron 04/15/25 16:59 Referral Speech Therapy Stat Comment: [place]y [place] Valve Test 04/19/25 13:54 Consult to Nephrology Routine Comment: KENIA Consulting Provider: Alejandra Gannon 05/09/25 11:14 Consult to Cardiology Stat Comment: Consulting Provider: Kobe Barahona 05/21/25 11:51 Consult to Tile Ditcher Stat Comment: trach adjustment Consulting Provider: Apolonia Ruth Attending Provider on DC: RESIDENT Kinsey Discharging Provider: RESIDENT Kinsey DS: Diagnosis Problem List Completed Was Problem List Reviewed/Reconciled?: Yes Hospital Course Hospital Course Hospital course: Summary: Mr. Ortega is a 64-year-old male with past medical history of chronic respiratory failure status post tracheostomy 03/14/2025 at [facility], morbid obesity status post Diego-en-Y gastric bypass status post J-tube placement at [facility], type 2 diabetes mellitus, hypertension, atrial fibrillation, HFpEF, grade 3 diastolic dysfunction, right heart failure, BASIA/OHS, KENIA on CKD currently on dialysis, anemia and chronic decubitus unstageable sacral ulcer status postdebridement 04/29/2025 who was initially for septic shock, requiring pressors. He has had a long protracted hospital course as above but is currently being treated for KENIA/ATN progressing to ESRD on hemodialysis MWF, acute on chronic hypoxic and hypercapnic respiratory failure, and recurrent pneumonia. ED Course: Initially patient was hypoxic, hypotensive unresponsive to IVF, febrile, patient was intubated in the ED. Initial labs were relevant for leukocytosis (16.5), ABG (pH 7.27, PCO2 of 57, and pO2 of 101), hyperkalemia (5.5), KENIA (creatinine 2.1), lactic acidosis (5.5 down trended to 3.6), hyperbilirubinemia (1.3, transaminitis (AST 129), elevated BNP (368), elevated procalcitonin (3.14). Initial imaging included chest x-ray which showed some bilateral opacities which seems like pulmonary edema versus pneumonia and head CT was negative for any acute hemorrhage, mass effect, or midline shift. Reason for hospitalization: Patient has had a long hospital course, was admitted to [facility] recently and February 2025, initially admitted to ICU for sepsis and septic shock. Patient was intubated due to acute hypercapnic and hypoxic respiratory failure with the progression of hospital course patient required multiple intubations for worsening hypercapnic encephalopathy and respiratory failure. Patient was eventually trached on 03/14/25 by general surgery, tracheostomy done with size 8 extra long cuffed tracheostomy. Clip Riveter Dr. Doty followed the patient for PEG tube placement and concern for GI bleed, however patient could not have the tube placed by gastroenterology as patient had a very small gastric pouch in setting of Diego-en-Y gastrojejunostomy, was eventually transferred to [facility] for J-tube placement and was transferred back to [facility] on 04/13/2025 for management. Hospital course was complicated by large decubitus sacral ulcer, which started bleeding profusely with patient being on anticoagulation, general surgeon Dr. Ca followed the patient. Excisional debridement of sacral decubitus ulcer and placement of wound VAC was done on 04/29/2025. Since patient is a [place]ri[place], concern for GI bleed as well as excessive bleeding from wound, anticoagulation was discontinued, risk and benefits of anticoagulation excessive bleeding versus stroke were discussed with the patient. Patient had multiple episodes of hospital-acquired/ventilator associated pneumonia and was treated with antibiotics per microbiology, most recent sputum cultures grew Pseudomonas aeruginosa from bronchial washings sensitive to Levaquin, previous sputum cultures grew Enterobacter which were treated with appropriate antibiotics at that time. The patient's blood cultures have stayed negative to date on repeated evaluations. Patient was upgraded to ICU again on 05/09/2025 for to symptomatic bradycardia, cardiology was consulted, rhythm converted to A-fib RVR heart rate in the 150s and received electrical cardioversion. Cardiology was also consulted for HFpEF. Bronchoscopy was done on 05/09/2025 due to significant left lower lobe mucous plugging, which was removed. Throughout course, patient developed acute kidney injury, patient was started on hemodialysis with temporary dialysis catheter, unable to pass tunneled dialysis catheter, complicated by right intrajugular vein DVT, initially patient was able to wean off of renal replacement therapy, nephrology followed the patient, but eventually patient required being placed on permanent dialysis. Currently dialysis schedule Tuesday, via temporary dialysis cath. Patient was eventually downgraded back to telemetry on 05/11/2025. Patient continues to stay on tracheostomy, was intermittently on blow-by via trach collar, but continued acute hypoxic respiratory failure requiring mechanical ventilation, patient started having difficulty breathing on 05/21/2025, e merchant Dr. Ruth saw the patient, recommended bronchoscopy to evaluate for tracheostomy misalignment and/or obstruction, bronchoscopy was done which showed subglottic anatomy with minimal nonobstructive granulomatous changes at tracheostomy site, below the tracheostomy tube there is moderate granulation and narrowing in the trachea, strict oral care and IV steroids were prescribed. On 05/29, patient underwent debridement of sacral ulcer wound by general surgeon Dr. Negron. He tolerated procedure well and wound is stable. He completed IV steroid treatment and insulin dosage has been readjusted. Patient is currently vitally stable, off pressors, stays on tracheostomy on spontaneous mode with apnea and pressure support backup, feels comfortable following bronchoscopy, able to voice his words, afebrile, completed antibiotic treatment for HCAP, able to take medications via G-tube, temporary dialysis catheter in place, scheduled outpatient hemodialysis //. The patient has been medically stable for the past 48 hours and is cleared for discharge from internal medicine standpoint. Discharge Recommendations: -21 day steroid taper -Insulin dose change, Glargine now at 10 units Qday, please adjust as needed. Patient experienced hypoglycemic episodes. -Please take all medication as prescribed -Please follow up with your primary care provider within one week of discharge -Please follow up with your rough patcher and your ict support technicians, Dr. Gannon -If your symptoms worsen,please seek immediate medical attention and return to your nearest emergency room -If you do not have a primary care provider, [facility] [address], [place] [address], Wound care: Sacral Stage 4 pressure injury: Cleanse with NS, pat dry, moistened rolled gauze with NS and pack wound. Cover with dry fluffs, abd pads and secure with medipore tape. Change daily and PRN for soiling Hospital Diagnoses: #Hemodialysis on temporary IJV Cath #Acute kidney injury-suspicion of ischemic ATN, improving #Fluid overload, improving #Acute on chronic hypoxic respiratory failure, improving. #Acute on Chronic Respiratory Failure secondary to mucous plug #Healthcare-Associated Pneumonia #Leukocytosis #Paroxysmal atrial fibrillation, rate controlled on Amiodarone #Complete Heart Block, s/p cardioversion (05/09/2025) #Congestive heart failure, HFpEF 65% #Diastolic dysfunction, grade 3 #Pulmonary hypertension #Right heart failure #BASIA/OHS #Moderate to severe a AOV calcification with no stenosis #Decubitus ulcer status post excisional debridement of sacral decubitus ulcer #DM2, insulin dependent #Morbid obesity #Jejunostomy tube #Abdominal abscess - resolved #Normocytic normochromic anemia - stable #Right internal jugular venous thrombosis #Right arm swelling Disposition: safe disposition to LTAC Case discussed with attending Dr. Mendoza and resident Dr. Alvin Dutta PGY-1 Internal Medicine - The patient's plan was discussed with attending Dr. Kelly Esquivel MD PGY2 Internal Medicine Time Spent with Patient Time attestation: Total time spent providing and/or coordinating discharge services: at least 30 minutes of care coordination Time spent: Greater than 30 minutes Exam Vital Signs Temp Pulse Resp BP Pulse Ox O2 Del Method O2 Flow Rate 97.6 F 102 H 18 118/70 97 Mechanical Ventilation 65 05/31/25 10:47 05/31/25 11:30 05/31/25 10:47 05/31/25 11:30 05/31/25 10:47 05/31/25 08:00 05/31/25 04:00 FiO2 35 05/31/25 10:47 Narrative Exam Physical Exam: Constitutional: Alert, oriented x 3 and no acute distress. Sleeping this morning, arouse with verbal stimuli. Elderly male, morbidly obese. Able to talk. HEENT: Trachea midline. Tracheostomy tube in situ, exit site clean. Mouth moist. Respiratory: Chest normal on inspection and decreased air entry in all lung sims, transmitted sounds and congestion on anterior chest wall, middle and upper lobes. Cardiovascular: S1 and S2 audible, RRR. No murmurs carotid bruit. No gross JVD. Abdominal: Soft, obese and non tender to palpation in all quadrants. Neurological: CN II - XII grossly intact. Extremity motor and sensation grossly intact. Extremities: 1+ pitting lower extremity edema bilaterally. Skin: Warm, dry and intact. Large sacral decubitus ulcer, necrotic tissue noted. No purulent drainage noted. Cleanly packed with dressings. Discharge Plan Plan Patient Disposition: Xfer [facility] Acute Patient condition on transfer: Stable Care Plan Goals: Instructions: -21 day steroid taper -Insulin dose change, Glargine now at 10 units Qday, please adjust as needed. Patient experienced hypoglycemic episodes. -Please take all medication as prescribed -Please follow up with your primary care provider within one week of discharge -Please follow up with your rough patcher and your ict support technicians, Dr. Gannon -If your symptoms worsen,please seek immediate medical attention and return to your nearest emergency room -If you do not have a primary care provider, you [facility] [address], [place] [address], Wound care: Sacral Stage 4 pressure injury: Cleanse with NS, pat dry, moistened rolled gauze with NS and pack wound. Cover with dry fluffs, abd pads and secure with medipore tape. Change daily and PRN for soiling Prescriptions/Referrals Prescriptions/Med Rec: New Mounjaro 2.5 mg/0.5 mL pen injector 2.5 mg subcut QWEEK Qty: 2 0RF Rx Instructions: for 4 weeks acetaminophen 325 mg Tablet 650 mg PO Q6HR PRN (Reason: pain 1-3 OR Fever >100.4) 30 Days Qty: 90 0RF gabapentin 100 mg Capsule 100 mg G-tube TID 30 Days Qty: 90 0RF sevelamer carbonate 0.8 gram Powder In Packet 0.8 g G-tube TIDWM 30 Days Qty: 90 0RF prednisone 5 mg tablets,dose pack 5 mg PO QDAY Qty: 21 0RF Rx Instructions: 21 one day taper, please follow instructions on box insulin glargine 100 unit/mL (3 mL) insulin pen 10 unit subcut QDAY 30 Days Qty: 3 0RF Continued amiodarone 200 mg Tablet 200 mg NG QDAY Qty: 0 0RF ascorbic acid (vitamin C) [Vitamin C] 250 mg Tablet 500 mg NG BID Qty: 0 0RF hydrocodone-acetaminophen 5-325 mg Tablet 1 tab PO Q8HR PRN (Reason: Pain 4-7) Qty: 0 0RF sertraline 25 mg Tablet 25 mg PO HS Qty: 0 0RF insulin lispro 100 unit/mL Solution 0 unit SCi Q6HR Qty: 0 0RF lansoprazole 30 mg Tablet,Disintegrat, Delay Rel 30 mg NG QDAY Qty: 0 0RF zinc sulfate 50 mg zinc (220 mg) Capsule 220 mg NG QDAY Qty: 0 0RF lukqakkf-vql-npowyil gluconate 12 mg iron/15 mL Liquid 15 ml NG QDAY Qty: 0 0RF Discontinued losartan 25 mg tablet 25 mg PO 1XD Patient Comments: TAKE 1 TABLET BY MOUTH EVERY DAY amlodipine 10 mg tablet 10 mg PO 1XD Patient Comments: TAKE 1 TABLET BY MOUTH EVERY DAY metoprolol succinate 100 mg tablet extended release 24 hr 100 mg PO 2XD Patient Comments: TAKE 1 TABLET BY MOUTH TWICE A DAY tramadol 50 mg tablet 50 mg PO 3XD Patient Comments: TAKE 2 TABLETS BY MOUTH 3 TIMES A DAY NEEDED metformin 1,000 mg tablet 1,000 mg PO 2XD Patient Comments: TAKE 1 TABLET BY MOUTH TWICE A DAY glipizide 10 mg tablet 10 mg PO 1XD Patient Comments: TAKE 1 TABLET BY MOUTH EVERY DAY gabapentin 600 mg tablet 600 mg PO 3XD Patient Comments: TAKE 1 TABLET BY MOUTH THREE TIMES A DAY amlodipine 5 mg Tablet 10 mg NG DAILY Qty: 0 0RF bumetanide 0.5 mg Tablet 2 mg PO QDAY Qty: 0 0RF bumetanide 0.25 mg/mL Solution 1 mg IVP QPM Qty: 0 0RF bumetanide 0.25 mg/mL Solution 2 mg IVP QPM Qty: 0 0RF insulin glargine [Lantus U-100 Insulin] 100 unit/mL Solution 38 unit SCi QDAY Qty: 0 0RF metronidazole in NaCl (iso-os) 500 mg/100 mL Piggyback 500 mg IV Q8HR Qty: 0 0RF heparin (porcine) in 5 % dex 25,000 unit/250 mL(100 unit/mL) Parenteral Solution 25,000 unit IV .[id number] Qty: 0 0RF cyclobenzaprine 5 mg Tablet 5 mg PO TID PRN (Reason: Muscle Spasms) Qty: 0 0RF Referrals: No Primary/Family,Physician [Primary Care Provider] - Lenora John MD [Physician] - Alejandra Gannon MD [Physician] - Patient/Caregiver Discharge Instructions Discharge Activity: other Education Materials: AFL/Afib, Acute Kidney Failure Dc, Heart Failure Print Language: Syriac Stand Alone Forms: Mikki Award Info., Patient Portal Info Letter Discharge Order Discharge Orders: Discharge (Routine); Ordered 05/31/25 Ordered By: Mery Esquivel Quality Discharge Quality Measures VTE prophylaxis
[2025-05-31] MEDS: ACETYLCYSTEINE RT SOL 10% 4 ML NEBU 3 ML INH (14:41)
[2025-05-31] MEDS: CHLORHEXIDINE MOUTHWASH 0.12% UDC 15 ML PO (15:55)
--- NOTE | 2025-05-31 16:38 | PC.SS ---
SS followed up with Patricia from [facility] who explained [facility] from [place] is going to come and asses to make sure pt is comfortable in their gurney. If pt is comfortable they will notify dispatch. Bedside nurse, Celeste is aware. Dafne ODELL is aware.
--- NOTE | 2025-05-31 18:00 | PC.NURSE ---
called [facility] to give report and talked to arnoldo,nurse from [facility] stated that they do not have bed for him .
--- NOTE | 2025-05-31 18:44 | ESPR_ITS ---
<Statement entered by Lenora John MD - 06/02/25 17:39> I personally examined the patient evaluated the patient appears to be doing much better, clinically stable on amiodarone via G-tube patient's awaiting transfer to LTAC unit and patient is stable from cardiovascular point of view for transfer continue current medication including amiodarone for A-fib rate control and patient to be continued on dialysis as an outpatient as well. Evaluated the patient along with resident physician PGY 2 Dr. Kirk Ahumada Documentation for date of: 05/31/25 Subjective Subjective Interval history: Patient is seen and examined at bedside No acute overnight events. On mechanical ventilator, pressure support On physical examination, bilateral diffuse wheeze noted for which nebulization is ordered Patient is getting discharged today to LTAC for further continuation of treatment. Recommended to continue amiodarone 200 Mg through G-tube daily Exam Vital Signs Temp Pulse Resp BP Pulse Ox O2 Del Method O2 Flow Rate 97.1 F 94 17 112/61 96 Mechanical Ventilation 65 05/31/25 16:00 05/31/25 16:00 05/31/25 16:00 05/31/25 16:00 05/31/25 16:00 05/31/25 16:00 05/31/25 04:00 FiO2 35 05/31/25 14:45 Narrative Exam General: Awake. obese. Tracheostomy tube insitu on PS mode HEENT: Normocephalic, atraumatic, mucous membranes moist. Heart: IRRegular rate and rhythm, no murmurs. Lungs: B/L diffuse wheeze heard. But noted decreased breath sounds bilaterally in view of body habitus. noted right IJV catheter on right side Abdomen: Soft, nondistended, nontender, positive bowel sounds. ?No guarding or rebound tenderness. Neurologic: Alert and oriented x3, no gross neurological deficit, and patient able to move all 4 extremities. Extremities: No edema. Skin: Large sacral ulcer in the gluteal region, Decubitus Grade III/IV Objective Labs 05/26/25 05:29 05/31/25 05:50 Labs: Laboratory Results - last 24 hr 05/31/25 05:50 Sodium 139 Potassium 3.9 Chloride 100 Carbon Dioxide 28.0 Anion Gap 11 BUN 80 H Creatinine 2.0 H Estim Creat Clear Calc 61.1 eGFR 36 L BUN/Creatinine Ratio 40 H Glucose 46 L* D Calculated Osmolality 298 H Calcium 8.4 Corrected Calcium 9.3 Phosphorus 4.9 Magnesium 2.3 Albumin 2.9 L ABG Interpretation ABG results: 04/18/25 04/18/25 04/18/25 04:40 06:27 10:30 ABG pH 7.28 L 7.33 L 7.36 ABG pCO2 72 H* 67 H 61 H ABG pO2 132 H 60 L D 60 L ABG HCO3 34 H 35 H 34 H ABG O2 Saturation 100 H 93 93 ABG Base Excess 6 H 7 H 8 H 04/19/25 05/10/25 08:53 07:40 ABG pH 7.47 H D 7.52 H ABG pCO2 45 D 40 ABG pO2 66 L 60 L ABG HCO3 33 H 32 H ABG O2 Saturation 96 94 ABG Base Excess 8 H 8 H Quality Measures Quality Measures VTE prophylaxis Advance care planning discussed with:: patient Assessment & Plan Assessment Current Active Medications: Generic Name Dose Route Start Last Admin Trade Name Freq PRN Reason Stop Dose Admin Acetaminophen 650 mg 05/25/25 06:14 05/25/25 06:22 Acetaminophen 325 Mg Tablet PO 06/24/25 06:13 650 mg Q4HR PRN Administration Fever >100.3, pain Protocol Acetylcysteine 3 ml 05/10/25 15:00 05/31/25 14:41 Acetylcysteine Rt Gloria 10% 4 Ml Nebu INH 06/09/25 14:59 3 ml Q8HRRT KOURTNEY Administration Albuterol/Ipratropium 3 ml 05/29/25 15:00 05/31/25 14:40 Albuterol/Ipratropium (Duoneb) Rt Gloria 3 Ml Nebu INH 06/28/25 14:59 3 ml Q8HRRT KOURTNEY Administration Amiodarone HCl 200 mg 05/12/25 13:45 05/31/25 11:30 Amiodarone Hcl 200 Mg Tablet GT 06/11/25 13:44 200 mg QDAY KOURTNEY Administration Ascorbic Acid 500 mg 05/30/25 21:00 05/31/25 11:30 Ascorbic Acid 250 Mg Tablet GT 06/29/25 20:59 500 mg BID KOURTNEY Administration Atorvastatin Calcium 40 mg 05/28/25 21:00 05/30/25 21:18 Atorvastatin Calcium 20 Mg Tablet GT 06/27/25 20:59 40 mg HS KOURTNEY Administration Chlorhexidine Gluconate 15 ml 05/22/25 13:30 05/31/25 15:55 Chlorhexidine Mouthwash 0.12% Udc 15 Ml PO 06/21/25 13:29 15 ml DAILY KOURTNEY Administration Dextrose 25 ml 05/27/25 08:07 05/31/25 11:53 Dextrose 50%-Water Inj 50 Ml Syringe IV 06/26/25 08:06 25 ml Q15MIN PRN Administration BG 50-70 responsive npo pt Dextrose 50 ml 05/27/25 08:07 Dextrose 50%-Water Inj 50 Ml Syringe IV 06/26/25 08:06 Q15MIN PRN BG <50 OR BG <70 & pt unresponsive Gabapentin 100 mg 05/20/25 14:30 05/31/25 15:48 Gabapentin 100 Mg Capsule GT 06/19/25 14:29 100 mg TID KOURTNEY Administration Glucagon 1 mg 05/27/25 08:07 Glucagon Inj 1 Mg Vial IM Q15MIN PRN BG <70, and no IV access Heparin Sodium (Porcine) 2,700 unit 05/21/25 16:12 05/31/25 10:49 Heparin Sod Inj 1000 Unit/Ml Vial 10 Ml INDWELLCAT 06/04/25 16:11 2,700 unit X1 PRN Administration DIALYSIS Insulin Glargine 25 unit 06/01/25 09:00 Insulin Glargine (Lantus) 5 Unit/0.05 Ml (Per 5 Units) SC 07/01/25 08:59 QAM [facility] Insulin Human Lispro 0 unit 05/30/25 18:05 05/31/25 05:11 Insulin Lispro (Admelog) 1 Unit/0.01 Ml Unit SC 06/11/25 17:59 Not Given Q6HR [facility] Protocol Lansoprazole 30 mg 05/05/25 09:00 05/31/25 11:30 Lansoprazole 30 Mg Tab.Rap.Dr DUARTE 06/04/25 08:59 30 mg QDAY KOURTNEY Administration Lidocaine 1 patch 05/30/25 13:56 Lidocaine 5% 1 Patch TOP 06/29/25 13:55 DAILY PRN LOCALIZED PAIN Pharmacy Consult 1 each 05/14/25 08:22 Pharmacy Renal Dose Adjustment 1 Ea XX 06/13/25 08:21 PRN PRN CONSULT Prednisone 20 mg 05/31/25 09:00 05/31/25 11:31 Prednisone 20 Mg Tablet PO 06/07/25 08:09 20 mg BID KOURTNEY Administration Sennosides 2 tab 05/02/25 09:00 05/31/25 11:30 Senna Tablet GT 06/01/25 08:59 2 tab QDAY KOURTNEY Administration Protocol Sevelamer Carbonate 0.8 gm 05/20/25 09:45 05/31/25 17:42 Sevelamer Carbonate 0.8 Gm Packet (Non-Formulary) GT 06/19/25 09:44 0.8 gm TIDWM KOURTNEY Administration Sodium Chloride 3 ml 05/26/25 08:02 Sodium Chloride Rt Gloria 0.9% 3 Ml Nebu INH 06/25/25 08:01 PRN PRN SOLN Sodium Hypochlorite 473 ml 05/06/25 21:00 05/31/25 12:34 Sod Hypochlorite 1/4 Str 473 Ml Btl IRRIG 06/05/25 20:59 Not Given BID KOURTNEY Plan Mr. Ortega is a 64-year-old male, Mandaen with a past medical history of hypertension, diabetes mellitus type 2, history of atrial fibrillation, CHF HFpEF 65%, grade 3 diastolic dysfunction, right heart failure, RSVP 47, moderate to severe ALB calsifications with no stenosis, status post tracheostomy, s/p PEG Tube at [facility], bariatric team, history of dyspahagia, extensive decubitus ulcers, CKD, history of anemia, history of Diego-en- Y gastric bypass, BASIA/OHS, and morbid obesity. Patient was upgraded to ICU for a third time with in acute respiratory respiratory failure secondary to mucous plug and shock, likely cardiogenic shock secondary to complete heart block requiring pressors and downgraded again # A-fib with RVR - s/p cardioversion ---> CVR # Bradycardia and questionable complete heart block, resolved - Patient was hypoxic and was transferred to the ICU on 05/09/2025. - Cardiology was consulted 05/09/2025 for significant bradycardia requiring external temporary transcutaneous pacing. - Plan was to place a temporary transvenous pacemaker if the patient continues to be bradycardic as he was 100% dependent on the transcutaneous pacing. - Bronchoscopy was performed which showed small mucous plug which was removed and patient rhythm was back to his atrial fibrillation with RVR. - Patient was on dopamine at that point of time. Patient blood pressure was on the lower side and was unstable and required cardioversion x 1. - Patient was on levophed and phenylephrine for a short period of time. - Patient is presently ventilator dependent and has a tracheostomy in place along with a jejunostomy. Plan - Recommend to continue telemetry monitoring - In view of ongoing sacral ulcer with recurrent infections, pacemaker placement cannot be done. But fortunately patient did not have any further episodes of bradycardia. So no need of pacemaker placement as of now - Recommended to continue amiodarone 200 Mg G-tube once daily - As patient had large decubitus ulcer and has tendency to bleed, anticoagulation is held for now # H/O CHF, HFpEF 65% #Diastolic dysfunction, grade 3 #Pulmonary hypertension #BASIA/OHS #Moderate to severe a AOV calcification with no stenosis #Moderate Right Pleural Effusion - Patient has a past medical history of right heart failure, Diastolic dysfunction, and HFpEF 65% likely in the setting of cardiomypoathy secondary to morbid obesity form BASIA/OHS. - [place] 03/19/2025: RAP 8, PAP 27, PCWP 7. - Echo (04/29/2025): Normal LV size and function. Estimated EF of 65%. Grade III Diastolic Dysfunction.Right ventricle is dilated with mild RV dysfunction RVSP 47mmHg. RAP 15mmHg.Severe biatrial dilation.Moderate to Severe AOV calcification with no stenosis <ild tricuspid regurgitation. No pericardial effusion. - Echo (05/14/2025) : Normal LV size and function. Estimated EF is 55 to 60%. Severely RA dilated right ventricle as well as right atrium. IVS flattening noted both in systole and diastole indicating both pressure and volume overload Plan -Recommended to hold diuresis for now due to kidney function and pt does not appear to be fluid overloaded -Pt will be getting dialysis on 05/21/25 -K >4 and Mg >2 #Acute on Chronic Respiratory Failure secondary to mucus plug #Healthcare-Associated Pneumonia #Leukocytosis #Large Sacral Decubitus Ulcer s/p excisional debridement (05/02/2025) #CKD stage III #Jejunostomy #History of abdominal abscess s/p percutaneous drainage #Diabetes Mellitus Type 2 non insulin depedent #Normocytic Anemia Management of rest of the medical conditions as per primary team and other consultants. Thank you for the consult and allowing us to participate in the care of the patient. Cardiology will continue to follow. Patient plan of care was discussed with the tile ditcher, Dr. Alvaro Ahumada, PGY2
--- NOTE | 2025-05-31 18:50 | PC.NURSE ---
report given to gianna, [facility]. 22 to right upper arm , vas cath to right ij
[2025-05-31] MEDS: HYDROcodone/APAP 5/325 TABLET 1 TAB PO (19:20)
== END 2025-05-31 19:36 | DRG 166 ==
LOC: S2NX 05-08 07:40 → S2SX 05-09 11:26 → S2NX 05-14 17:46
PROVIDERS: Internal Medicine; Radiology Diagnostic Radiology; Student in an Organized Health Care Education/Training Program; Surgery; Admitting Provider Student in an Organized Health Care Education/Training Program; Visit Provider Internal Medicine
PROC: 0JB70ZZ Excision of Back Subcutaneous Tissue and Fascia, Open Approach (ICD-10-PCS; principal; 2025-04-29 13:00)
DX: J96.21 Acute and chronic respiratory failure with hypoxia (principal); A41.9 Sepsis, unspecified organism; L89.153 Pressure ulcer of sacral region, stage 3; J18.9 Pneumonia, unspecified organism; G93.41 Metabolic encephalopathy; J69.0 Pneumonitis due to inhalation of food and vomit; K65.1 Peritoneal abscess; N17.0 Acute kidney failure with tubular necrosis; N18.6 End stage renal disease; R57.0 Cardiogenic shock; I82.C11 Acute embolism and thrombosis of right internal jugular vein; I50.32 Chronic diastolic (congestive) heart failure; I48.20 Chronic atrial fibrillation, unspecified; Z68.45 Body mass index [BMI] 70 or greater, adult; E87.20 Acidosis, unspecified; I13.2 Hypertensive heart and chronic kidney disease with heart failure and with stage 5 chronic kidney disease, or end stage renal disease; I44.2 Atrioventricular block, complete; Z99.11 Dependence on respirator [ventilator] status; J95.03 Malfunction of tracheostomy stoma; N13.30 Unspecified hydronephrosis; Z68.44 Body mass index [BMI] 60.0-69.9, adult; J96.22 Acute and chronic respiratory failure with hypercapnia; L89.90 Pressure ulcer of unspecified site, unspecified stage; G89.29 Other chronic pain; M54.9 Dorsalgia, unspecified; E66.01 Morbid (severe) obesity due to excess calories; Z79.01 Long term (current) use of anticoagulants; E11.22 Type 2 diabetes mellitus with diabetic chronic kidney disease; E11.65 Type 2 diabetes mellitus with hyperglycemia; E83.41 Hypermagnesemia; E86.1 Hypovolemia; E87.5 Hyperkalemia; E88.819 Insulin resistance, unspecified; I27.29 Other secondary pulmonary hypertension; I48.0 Paroxysmal atrial fibrillation; I49.5 Sick sinus syndrome; D50.0 Iron deficiency anemia secondary to blood loss (chronic); R13.10 Dysphagia, unspecified; T38.0X5A Adverse effect of glucocorticoids and synthetic analogues, initial encounter; Y95 Nosocomial condition; Z53.1 Procedure and treatment not carried out because of patient's decision for reasons of belief and group pressure; Z74.01 Bed confinement status; Z78.1 Physical restraint status; Z79.4 Long term (current) use of insulin; Z79.85 Long-term (current) use of injectable non-insulin antidiabetic drugs; Z79.899 Other long term (current) drug therapy; Z87.01 Personal history of pneumonia (recurrent); Z98.84 Bariatric surgery status; Z99.2 Dependence on renal dialysis
CPT/HCPCS: 36415; 36600; 71045; 74018; 77001; 80053; 80069; 80202; 82436; 82570; 82728; 82803; 83540; 83550; 83605; 83735; 83880; 84100; 84133; 84145; 84300; 84443; 84484; 84540; 85014; 85018; 85025; 85610; 85730; 86580; 86850; 86900; 86901; 87040; 87070; 87075; 87077; 87081; 87186; 87205; 92522; 93005; 93306; 93971; 94002; 94003; 94640; 94664; 94667; 94762; 97162; 97163; A4217; A4649; A9270; C1752; C1889; C1894; J0461; J0690; J0692; J0696; J1120; J1171; J1265; J1643; J1644; J1815; J1956; J2250; J2371; J2405; J2543; J2704; J2919; J3010; J3370; J3372; J3490; J7030; J7040; J7050; J7120; J7512; J7999; P9047; Q0138; Q0139; Q5105; Q5106; J1836